=== PATIENT | male | born 1940 | race Caucasian/White ===

== ENCOUNTER 2018-08-29 11:04 | Emergency (ER) | payer MEDICARE ==
--- NOTE | 2018-08-29 11:39 | ED ---
URI HPI - General Chief Complaint: Upper Respiratory Infection Stated Complaint: COLD SYMPTOMS Time Seen by Provider: 08/29/18 11:20 Source: patient, RN notes reviewed Mode of arrival: ambulatory Limitations: no limitations - History of Present Illness Initial Comments: This is a 78-year-old male with a history of COPD who states he's had issues with sinus congestion since this past [place]. He states his came home from school and was ill initially likely secondary to soft tissue defect up at school from kids he states she's been having sinus congestion and rhinorrhea cough he states he sinus congestion and drainage is usually yellow the weight phlegm he does cough up this is usually white sometimes dark brown after drinking coffee. He's had some low-grade fevers he states earlier this week until this morning this is sinus pressure and discomfort especially around his eyes. No neck pain no back pain he states his breathing appears be within his usual normal limits. No chest pain no peripheral edema no other modifying factors at this time he has tried nasal washes he's tried Mucinex he's had 2 bottles of cough syrup he states. MD Complaint: fever, cough, rhinorrhea, nasal congestion, sinus pain - Related Data Home Medications Medication Instructions Recorded Confirmed Albuterol Inhaler [Ventolin Hfa 1 - 2 puff INHALATION Q6HR PRN 12/11/15 12/13/15 Inhaler] Aspirin [Adult Low Dose Aspirin EC] 81 mg PO HS 12/11/15 12/13/15 Calcium Carbonate/Vitamin D3 1 each PO 1200 12/11/15 12/13/15 [Calcium 600 + Vit D 400 Tablet] Fluticasone/Salmeterol [Advair 1 inhalation PO BID 12/11/15 12/13/15 500-50 Diskus] Levothyroxine Sodium [Synthroid] 50 mcg PO DAILY 12/11/15 12/13/15 Losartan Potassium [Cozaar] 100 mg PO QAM 12/11/15 12/13/15 Magnesium Oxide [Mag-Ox] 400 mg PO QAM 12/11/15 12/13/15 Metoprolol Succinate (ER) [Toprol 100 mg PO QAM 12/11/15 12/13/15 Xl] Multivitamin [Men's Multi-Vitamin] 1 each PO QAM 12/11/15 12/13/15 Niacinamide [Niacin] 500 mg PO BID 12/11/15 12/13/15 Omeprazole 20 mg PO BID 12/11/15 12/13/15 Simvastatin [Zocor] 10 mg PO HS 12/11/15 12/13/15 Tiotropium 18 Mcg/Puff [Spiriva] 1 cap INHALATION DAILY 12/11/15 12/13/15 metFORMIN HCL [Glucophage] 500 mg PO BID 12/11/15 12/13/15 Previous Rx's Medication Instructions Recorded Amoxicillin/Potassium Clav 1 tab PO Q12HR #20 tab 08/29/18 [Augmentin 875-125 Tablet] Allergies Allergy/AdvReac Type Severity Reaction Status Date / Time No Known Allergies Allergy Verified 08/29/18 11:11 Review of Systems ROS Statement: Those systems with pertinent positive or pertinent negative responses have been documented in the HPI. ROS Other: All systems not noted in ROS Statement are negative. 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 History of Any Multi-Drug Resistant Organisms: None Reported Past Surgical History: Heart Catheterization, Heart Catheterization With Stent Additional Past Surgical History / Comment(s): 1/2 thyroid removed, stent card in wallet, left eye cataract removal & lens implanted, lasix on right eye Past Anesthesia/Blood Transfusion Reactions: No Reported Reaction Date of Last Stent Placement:: 2003 () Past Psychological History: No Psychological Hx Reported Smoking Status: Former smoker Past Alcohol Use History: Occasional Past Drug Use History: None Reported - Past Family History Mother Family Medical History: Cancer Additional Family Medical History / Comment(s): sx: appendix; CA: breast ( from) Father Family Medical History: COPD, CVA/TIA Additional Family Medical History / Comment(s): CVA in 1978 ( from), sinus sx General Exam - General Exam Comments Initial Comments: This is a well-developed well-nourished awake alert oriented times 3 male Limitations: no limitations General appearance: alert Head exam: Present: atraumatic, normocephalic, normal inspection Eye exam: Present: normal appearance, PERRL, EOMI. Absent: scleral icterus, conjunctival injection, periorbital swelling ENT exam: Present: TM's normal bilaterally, other ([place] nasal mucosa clear drainage is seen) Neck exam: Present: normal inspection, full ROM, other (No stridor JVD or bruits ). Absent: tenderness, meningismus, lymphadenopathy Respiratory exam: Present: decreased breath sounds (Just very slightly diminished on the right compared to the left). Absent: respiratory distress, wheezes, rales, rhonchi, stridor Cardiovascular Exam: Present: regular rate, normal rhythm, normal heart sounds. Absent: systolic murmur, diastolic murmur, rubs, gallop, clicks Extremities exam: Present: normal inspection, full ROM, normal capillary refill. Absent: tenderness, pedal edema, joint swelling, calf tenderness Back exam: Present: normal inspection Neurological exam: Present: alert, oriented X3, CN II-XII intact Psychiatric exam: Present: normal affect, normal mood Skin exam: Present: warm, dry, intact, normal color. Absent: rash Course Vital Signs 08/29/18 11:07 Temperature 97.5 F L Pulse Rate 76 Respiratory 20 Rate Blood Pressure 145/80 O2 Sat by Pulse 97 Oximetry Medical Decision Making - Medical Decision Making I did discuss findings the patient. The presentation consistent with chronic sinusitis that appears be getting worse she will be placed on antibiotics. He states he has been on Augmentin in the past that has worked well he will again it. He'll consult continue with his other medication. - Lab Data Lab Results 08/29/18 Range/Units 11:34 Influenza Type A RNA Not Detected (Not Detectd) Influenza Type B (PCR) Not Detected (Not Detectd) - Radiology Data Radiology results: report reviewed (I did review the imaging and report no acute findings the studies consistent with COPD), image reviewed Disposition Clinical Impression: Rhinosinusitis Disposition: HOME SELF-CARE Condition: Good Instructions: Rhinosinusitis (ED) Prescriptions: Amoxicillin/Potassium Clav [Augmentin 875-125 Tablet] 1 tab PO Q12HR #20 tab Is patient prescribed a controlled substance at d/c from ED?: No Referrals: Pedro Pablo Brunner MD [Primary Care Provider] - 1-2 days
--- NOTE | 2018-08-29 11:48 | XR ---
EXAMINATION TYPE: XR chest 2V DATE OF EXAM: 08/29/2018 HISTORY: cough. REFERENCE: NONE. FINDINGS: The lungs are overinflated. There is some scarring or atelectasis at both lung bases. The l ungs are otherwise clear. Pleural space are clear. The heart is not enlarged. IMPRESSION: 1. COPD. 2. SCARRING VERSUS ATELECTASIS, BOTH LUNG BASES.
[2018-08-29 12:29] VITALS: BP 140/90; PULSE 79; RESP 18; TEMP 97.8
== END 2018-08-29 12:29 | disposition home or self-care (01) ==
LOC: EC 11:04
DX: J32.9 Chronic sinusitis, unspecified (principal); R50.9 Fever, unspecified; I10 Essential (primary) hypertension; J44.9 Chronic obstructive pulmonary disease, unspecified; I25.10 Atherosclerotic heart disease of native coronary artery without angina pectoris; E07.9 Disorder of thyroid, unspecified; H91.90 Unspecified hearing loss, unspecified ear; K22.70 Barrett's esophagus without dysplasia; Z87.891 Personal history of nicotine dependence; Z79.51 Long term (current) use of inhaled steroids; Z79.82 Long term (current) use of aspirin; Z79.84 Long term (current) use of oral hypoglycemic drugs; Z79.899 Other long term (current) drug therapy; Z95.5 Presence of coronary angioplasty implant and graft
CPT/HCPCS: 71046; 87502; 99283

== ENCOUNTER 2019-12-04 14:08 | Observation (INO) | payer MEDICARE ==
[2019-12-04] MEDS ORDERED: SODIUM CHLORIDE 0.9% 500 ML 500 ML IV STA (14:32)
[2019-12-04 14:48] LABS: Basophils % (A) 0 %; Eosinophils # (A) 0.2 k/uL (0-0.7); Eosinophils % (A) 2 %; HCT 42.4 % (39.0-53.0); HGB 14.3 gm/dL (13.0-17.5); Lymphocytes # (A) 0.8 k/uL (1.0-4.8); Lymphocytes % (A) 9 %; MCH 32.2 pg (25.0-35.0); MCHC 33.8 g/dL (31.0-37.0); MCV 95.4 fL (80.0-100.0); Mean Platelet Volume 7.1; Monocytes # (A) 0.9 k/uL (0-1.0); Monocytes % (A) 10 %; Neutrophils # (A) 6.8 k/uL (1.3-7.7); Neutrophils % (A) 76 %; Platelet Count 199 k/uL (150-450); RBC 4.44 m/uL (4.30-5.90); RDW 12.8 % (11.5-15.5); WBC 8.9 k/uL (3.8-10.6)
[2019-12-04 14:57] LABS: INR 0.9 (<1.2); Partial Thromboplastin Time 25.1 sec (22.0-30.0); Prothrombin Time 9.8 sec (9.0-12.0)
[2019-12-04 15:05] LABS: Albumin 4.4 g/dL (3.5-5.0); Total Bilirubin 1.4 mg/dL (0.2-1.3); Total Protein 7.4 g/dL (6.3-8.2)
--- NOTE | 2019-12-04 15:08 | XR ---
EXAMINATION TYPE: XR chest 1V portable DATE OF EXAM: 12/04/2019 COMPARISON: 08/29/2018 HISTORY: Cough TECHNIQUE: FINDINGS: Heart is normal. There is some atelectasis at the lung bases. There are no hilar masses. [place] thorax is intact. IMPRESSION: There is some atelectasis at the lung bases with decreased inspiration. This is worse akilah n last exam.
--- NOTE | 2019-12-04 15:20 | ED ---
General Adult HPI - General Source: patient Mode of arrival: ambulatory Limitations: no limitations <Felicia Carlson - Last Filed: 12/04/19 16:24> <Kellie Ortega - Last Filed: 12/06/19 23:52> - General Chief complaint: Shortness of Breath Stated complaint: SOB Time Seen by Provider: 12/04/19 14:17 - History of Present Illness Initial comments: Patient is a 79-year-old male, with history of COPD, presenting to emergency Department with complaints of a cough, mild shortness of breath for the past 4-5 days. Patient states his symptoms started about a week ago with a mild cough, congestion. Patient denies having fever, chills. Patient states over the past week his feels like his symptoms have been increasing and is having some shortness of breath with exertion. He complains of just general fatigue. P atient did admit he had a little bit of chest discomfort when he was coughing and intermittently. Patient denies previous history of heart disease. He does not remember his last stress test. He denies history of PE. He denies any abdominal complaints such as nausea, vomiting, diarrhea, abdominal pain. He denies lightheadedness. He has no other complaints. Upon arrival to the ER, his vital signs are stable. (Felicia Carlson) - Related Data Home Medications Medication Instructions Recorded Confirmed Albuterol Inhaler (Bulk) [Ventolin 2 puff INHALATION RT-QID PRN 12/11/15 12/04/19 Hfa Inhaler] Aspirin [Adult Low Dose Aspirin EC] 81 mg PO Q48H 12/11/15 12/04/19 Calcium Carbonate/Vitamin D3 1 tab PO W/LUNCH 12/11/15 12/04/19 [Calcium 600 + Vit D 400 Tablet] Fluticasone/Salmeterol [Advair 1 puff INHALATION RT-BID 12/11/15 12/04/19 500-50 Diskus] Levothyroxine Sodium [Synthroid] 50 mcg PO DAILY 12/11/15 12/04/19 Losartan Potassium [Cozaar] 100 mg PO DAILY 12/11/15 12/04/19 Metoprolol Succinate (ER) [Toprol 100 mg PO DAILY 12/11/15 12/04/19 Xl] Multivitamin [Men's Multi-Vitamin] 1 tab PO W/LUNCH 12/11/15 12/04/19 Tiotropium 18 Mcg/Puff [Spiriva] 1 cap INHALATION RT-DAILY 12/11/15 12/04/19 metFORMIN HCL [Glucophage] 500 mg PO PC-SUPPER 12/11/15 12/04/19 Cyanocobalamin (Vitamin B-12) 1,000 mcg PO W/LUNCH 12/04/19 12/04/19 [Vitamin B-12] Ipratropium [place] 0.06%Nasal 1 spray EA NOSTRIL QID PRN 12/04/19 12/04/19 [Atrovent Nasal 0.06%] Simvastatin [Zocor] 10 mg PO PC-SUPPER 12/04/19 12/04/19 Azithromycin [Zithromax] 500 mg PO DAILY 12/05/19 12/05/19 Allergies Allergy/AdvReac Type Severity Reaction Status Date / Time No Known Allergies Allergy Verified 12/04/19 14:14 Review of Systems ROS Other: All systems not noted in ROS Statement are negative. <Felicia Carlson - Last Filed: 12/04/19 16:24> ROS Other: All systems not noted in ROS Statement are negative. <Kellie Ortega - Last Filed: 12/06/19 23:52> ROS Statement: Those systems with pertinent positive or pertinent negative responses have been documented in the HPI. 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 History of Any Multi-Drug Resistant Organisms: None Reported Past Surgical History: Heart Catheterization, Heart Catheterization With Stent Additional Past Surgical History / Comment(s): 1/2 thyroid removed, stent card in wallet, left eye cataract removal & lens implanted, lasix on right eye Past Anesthesia/Blood Transfusion Reactions: No Reported Reaction Date of Last Stent Placement:: 2003 () Past Psychological History: No Psychological Hx Reported Smoking Status: Former smoker Past Alcohol Use History: Daily Past Drug Use History: None Reported - Past Family History Mother Family Medical History: Cancer Additional Family Medical History / Comment(s): sx: appendix; CA: breast ( from) Father Family Medical History: COPD, CVA/TIA Additional Family Medical History / Comment(s): CVA in 1978 ( from), sinus sx <Felicia Carlson - Last Filed: 12/04/19 16:24> General Exam Limitations: no limitations <Felicia Carlson - Last Filed: 12/04/19 16:24> - General Exam Comments Initial Comments: GENERAL: Well-appearing, well-nourished and in no acute distress. HEAD: Atraumatic, normocephalic. EYES: Pupils equal round and reactive to light, extraocular movements intact, sclera anicteric, conjunctiva are normal. ENT: TMs normal, nares patent, oropharynx clear without exudates. Moist mucous membranes. NECK: Normal range of motion, supple without lymphadenopathy or JVD. LUNGS: Breath sounds clear to auscultation bilaterally and equal. No wheezes rales or rhonchi. HEART: Regular rate and rhythm without murmurs, rubs or gallops. ABDOMEN: Soft, nontender, normoactive bowel sounds. No guarding, no rebound. No masses appreciated. : Deferred EXTREMITIES: Normal range of motion, no pitting or edema. No clubbing or cyanosis. NEUROLOGICAL: Normal speech, normal gait. PSYCH: Normal mood, normal affect. SKIN: Warm, Dry, normal turgor, no rashes or lesions noted. (Felicia Carlson) Course Vital Signs 12/04/19 12/04/19 12/04/19 14:11 14:44 17:02 Temperature 98.6 F 98.5 F Pulse Rate 89 Pulse Rate [ 84 Pulse Oximetery ] Respiratory 18 16 18 Rate Blood Pressure 151/89 Blood Pressure 180/84 [Left Arm] O2 Sat by Pulse 97 96 Oximetry 12/04/19 17:04 Temperature Pulse Rate 83 Pulse Rate [ Pulse Oximetery ] Respiratory 16 Rate Blood Pressure 139/86 Blood Pressure [Left Arm] O2 Sat by Pulse 100 Oximetry EKG Findings - EKG Comments: EKG Findings:: Ventricular rate 76, WV interval 178, QTC 429. Normal sinus rhythm. Nonspecific ST abnormality, no signs of acute ischemia. <Felicia Carlson - Last Filed: 12/04/19 16:24> Medical Decision Making - Lab Data Result diagrams: 12/04/19 14:35 12/04/19 14:35 <Felicia Carlson - Last Filed: 12/04/19 16:24> - Lab Data Result diagrams: 12/05/19 01:41 12/05/19 01:41 <Kellie Ortega - Last Filed: 12/06/19 23:52> - Medical Decision Making Patient 71-year-old male presenting with cough, short of breath 5 days. Inte rmittent chest pain. Vital signs are stable upon arrival. Exam is unremarkable. EKG shows no signs of acute ischemia. Chest x-ray shows some mild atelectasis at the lung bases, no other abnormality. Lab work shows normal white count. Kidney function is slightly elevated but at baseline. Troponin is 0.025. Given patient's history of symptoms and slight increase in troponin, patient will be admitted for cardiac rule out. I did order a CTA to rule out PE which is pending at this time. I spoke with Dr. Prince who accepts the patient. Patient is agreement with this plan of care. Case discussed with Dr. Ortega. (Felicia Carlson) I was available for consultation in the emergency department. The history and physical exam were done by the midlevel provider. I was consulted for this patients care. I reviewed the case with the midlevel provider and based on their presentation of the patient, I agree with the assessment, medical decision making and plan of care as documented. Chart was dictated using [employer] dictation software. Attempts were made to benjamin ect any dictation errors however some typographical errors may persist. Patient was seen during a national state of emergency due to the Covid-19 pandemic. (Kellie Ortega) - Lab Data Lab Results 12/04/19 12/04/19 12/04/19 Range/Units 14:35 14:35 14:35 WBC 8.9 (3.8-10.6) k/uL RBC 4.44 (4.30-5.90) m/uL Hgb 14.3 (13.0-17.5) gm/dL Hct 42.4 (39.0-53.0) % MCV 95.4 (80.0-100.0) fL MCH 32.2 (25.0-35.0) pg MCHC 33.8 (31.0-37.0) g/dL RDW 12.8 (11.5-15.5) % Plt Count 199 (150-450) k/uL Neutrophils % 76 % Lymphocytes % 9 % Monocytes % 10 % Eosinophils % 2 % Basophils % 0 % Neutrophils # 6.8 (1.3-7.7) k/uL Lymphocytes # 0.8 L (1.0-4.8) k/uL Monocytes # 0.9 (0-1.0) k/uL Eosinophils # 0.2 (0-0.7) k/uL Basophils # 0.0 (0-0.2) k/uL PT 9.8 (9.0-12.0) sec INR 0.9 (<1.2) APTT 25.1 (22.0-30.0) sec Sodium 135 L (137-145) mmol/L Potassium 5.0 (3.5-5.1) mmol/L Chloride 100 (98-107) mmol/L Carbon Dioxide 25 (22-30) mmol/L Anion Gap 10 mmol/L BUN 32 H (9-20) mg/dL Creatinine 1.39 H (0.66-1.25) mg/dL Est GFR (CKD-EPI)AfAm 56 (>60 ml/min/1.73 sqM) Est GFR (CKD-EPI)NonAf 48 (>60 ml/min/1.73 sqM) Glucose 118 H (74-99) mg/dL Calcium 10.0 (8.4-10.2) mg/dL Magnesium 2.0 (1.6-2.3) mg/dL Total Bilirubin 1.4 H (0.2-1.3) mg/dL AST 46 (17-59) U/L ALT 61 H (4-49) U/L Alkaline Phosphatase 50 (38-126) U/L Troponin I (0.000-0.034) ng/mL Total Protein 7.4 (6.3-8.2) g/dL Albumin 4.4 (3.5-5.0) g/dL 12/04/19 Range/Units 14:35 WBC (3.8-10.6) k/uL RBC (4.30-5.90) m/uL Hgb (13.0-17.5) gm/dL Hct (39.0-53.0) % MCV (80.0-100.0) fL MCH (25.0-35.0) pg MCHC (31.0-37.0) g/dL RDW (11.5-15.5) % Plt Count (150-450) k/uL Neutrophils % % Lymphocytes % % Monocytes % % Eosinophils % % Basophils % % Neutrophils # (1.3-7.7) k/uL Lymphocytes # (1.0-4.8) k/uL Monocytes # (0-1.0) k/uL Eosinophils # (0-0.7) k/uL Basophils # (0-0.2) k/uL PT (9.0-12.0) sec INR (<1.2) APTT (22.0-30.0) sec Sodium (137-145) mmol/L Potassium (3.5-5.1) mmol/L Chloride (98-107) mmol/L Carbon Dioxide (22-30) mmol/L Anion Gap mmol/L BUN (9-20) mg/dL Creatinine (0.66-1.25) mg/dL Est GFR (CKD-EPI)AfAm (>60 ml/min/1.73 sqM) Est GFR (CKD-EPI)NonAf (>60 ml/min/1.73 sqM) Glucose (74-99) mg/dL Calcium (8.4-10.2) mg/dL Magnesium (1.6-2.3) mg/dL Total Bilirubin (0.2-1.3) mg/dL AST (17-59) U/L ALT (4-49) U/L Alkaline Phosphatase (38-126) U/L Troponin I 0.025 (0.000-0.034) ng/mL Total Protein (6.3-8.2) g/dL Albumin (3.5-5.0) g/dL Disposition Is patient prescribed a controlled substance at d/c from ED?: No Decision Date: 12/04/19 Decision Time: 16:25 <Felicia Carlson - Last Filed: 12/04/19 16:24> <Kellie Ortega - Last Filed: 12/06/19 23:52> Clinical Impression: Dyspnea, Chest pain Disposition: ADMITTED IP TO THIS [facility] Condition: Stable
[2019-12-04] MEDS ORDERED: NITROGLYCERIN SL TABS 0.4 MG TAB SUBLINGUAL PRN (16:22)
--- NOTE | 2019-12-04 16:43 | CT ---
EXAMINATION TYPE: CT chest angio for PE DATE OF EXAM: 12/04/2019 COMPARISON: None HISTORY: SOB CT DLP: 553.8 mGycm Automated exposure control for dose reduction was used. CONTRAST: Performed with IV Contrast, patient injected with 80cc mL of Isovue 370. There are 3-D post processed images. There is diffuse pulmonary emphysema. There is airspace consolidation and atelectasis in the right lo wer lobe. There is minimal pleural thickening at the right posterior lung base. There is no mediastinal adenopathy. There are no hilar masses. Thoracic aorta is atheromatous. There is normal contrast opacification of the pulmonary arteries. There are no filling defects. There is no aortic aneurysm or dissection. There is mild linear density at the right lung base. There is degener ative spurring in the thoracic spine. IMPRESSION: No evidence of pulmonary embolism. Right lower lobe pneumonia and atelectasis. Mild infiltrate and atelectasis left lung base. Moderately severe pulmonary emphysema.
--- NOTE | 2019-12-04 17:17 | P.HPIM ---
History of Present Illness H&P Date: 12/04/19 Patient is a 79-year-old male with a history of COPD, who states for the last 5 days he's had a cough, patient's denies any productive sputum. He states on Friday night he had chills but has not had a fever in the last 5 days. He denies any sick contacts he is home with his and states that she goes shopping but he is attending addendum other contact the last 3 weeks. His is currently not ill patient states he has had some intermittent chest pain for which she's taken antacids he denies any nausea or vomiting he states that his blood pressure was low on his heart rate was high however he did not clearly remember the numbers. Today patient came to the emergency room for evaluation in emergency room was afebrile with temperature 98.6, respiratory rate of 18, pulse of 89, blood pressure 151/89 he was 97% on room air. Patient had a chest x-ray that reported some atelectasis at the lung bases with decreased inspiration. CTA was done that showed right lower lobe atelectasis and mild infiltrate and atelectasis of the left lung base. Patient also describes body aches for the last 5 days. Patient was determined to hospitalization for further workup and management. 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 History of Any Multi-Drug Resistant Organisms: None Reported Past Surgical History: Heart Catheterization, Heart Catheterization With Stent Additional Past Surgical History / Comment(s): 1/2 thyroid removed, stent card in wallet, left eye cataract removal & lens implanted, lasix on right eye Past Anesthesia/Blood Transfusion Reactions: No Reported Reaction Date of Last Stent Placement:: 2003 (approx) Past Psychological History: No Psychological Hx Reported Smoking Status: Former smoker Past Alcohol Use History: Daily Past Drug Use History: None Reported - Past Family History Mother Family Medical History: Cancer Additional Family Medical History / Comment(s): sx: appendix; CA: breast ( from) Father Family Medical History: COPD, CVA/TIA Additional Family Medical History / Comment(s): CVA in 1978 ( from), sinus sx Medications and Allergies Home Medications Medication Instructions Recorded Confirmed Type Albuterol Inhaler (Bulk) [Ventolin 2 puff INHALATION RT-QID PRN 12/11/15 12/04/19 History Hfa Inhaler] Aspirin [Adult Low Dose Aspirin EC] 81 mg PO Q48H 12/11/15 12/04/19 History Calcium Carbonate/Vitamin D3 1 tab PO W/LUNCH 12/11/15 12/04/19 History [Calcium 600 + Vit D 400 Tablet] Fluticasone/Salmeterol [Advair 1 puff INHALATION RT-BID 12/11/15 12/04/19 History 500-50 Diskus] Levothyroxine Sodium [Synthroid] 50 mcg PO DAILY 12/11/15 12/04/19 History Losartan Potassium [Cozaar] 100 mg PO DAILY 12/11/15 12/04/19 History Metoprolol Succinate (ER) [Toprol 100 mg PO DAILY 12/11/15 12/04/19 History Xl] Multivitamin [Men's Multi-Vitamin] 1 tab PO W/LUNCH 12/11/15 12/04/19 History Tiotropium 18 Mcg/Puff [Spiriva] 1 cap INHALATION RT-DAILY 12/11/15 12/04/19 History metFORMIN HCL [Glucophage] 500 mg PO PC-SUPPER 12/11/15 12/04/19 History Cyanocobalamin (Vitamin B-12) 1,000 mcg PO W/LUNCH 12/04/19 12/04/19 History [Vitamin B-12] Ipratropium [place] 0.06%Nasal 1 spray EA NOSTRIL QID PRN 12/04/19 12/04/19 History [Atrovent Nasal 0.06%] Simvastatin [Zocor] 10 mg PO PC-SUPPER 12/04/19 12/04/19 History Allergies Allergy/AdvReac Type Severity Reaction Status Date / Time No Known Allergies Allergy Verified 12/04/19 14:14 Physical Exam Vitals: Vital Signs Temp Pulse Resp BP Pulse Ox 12/04/19 14:44 16 12/04/19 14:11 98.6 F 89 18 151/89 97 Intake and Output 12/04/19 12/04/19 12/04/19 06:59 14:59 22:59 Other: Weight 94.801 kg - Constitutional General appearance: no acute distress - EENT Eyes: PERRLA - Respiratory Respiratory: bilateral: diminished - Gastrointestinal General gastrointestinal: normal bowel sounds - Integumentary Integumentary: normal - Neurologic Neurologic: CNII-XII intact - Musculoskeletal Musculoskeletal: strength equal bilaterally - Psychiatric Psychiatric: A&O x's 3, appropriate affect, intact judgment & insight Results CBC & Chem 7: 12/04/19 14:35 12/04/19 14:35 Labs: Abnormal Lab Results - Last 24 Hours (Table) 12/04/19 12/04/19 Range/Units 14:35 14:35 Lymphocytes # 0.8 L (1.0-4.8) k/uL Sodium 135 L (137-145) mmol/L BUN 32 H (9-20) mg/dL Creatinine 1.39 H (0.66-1.25) mg/dL Glucose 118 H (74-99) mg/dL Total Bilirubin 1.4 H (0.2-1.3) mg/dL ALT 61 H (4-49) U/L Abdominal x-ray: report reviewed CT scan - chest: report reviewed Assessment and Plan (1) Pneumonia Narrative/Plan: Patient has pneumonia present on CT of the chest. We'll treat with Zithromax and Rocephin, who is currently not hypoxic. Patient describing chills cough and body aches we'll check: Covid-10, inflammatory markers Current Visit: Yes Status: Acute Code(s): J18.9 - PNEUMONIA, UNSPECIFIED ORGANISM SNOMED Code(s): 974730417 (2) Chest pain Narrative/Plan: We'll trend enzymes, cardiology consult Current Visit: Yes Status: Acute Code(s): R07.9 - CHEST PAIN, UNSPECIFIED SNOMED Code(s): 70459209 (3) COPD (chronic obstructive pulmonary disease) Narrative/Plan: Patient does have severe COPD but does not appear to have an exacerbation is no wheezing we'll continue home regimen Current Visit: Yes Status: Acute Code(s): J44.9 - CHRONIC OBSTRUCTIVE PULMONARY DISEASE, UNSPECIFIED SNOMED Code(s): 86539022 (4) Diabetes mellitus Narrative/Plan: Continue outpatient regiment and sliding scale coverage Current Visit: Yes Status: Acute Code(s): E11.9 - TYPE 2 DIABETES MELLITUS WITHOUT COMPLICATIONS SNOMED Code(s): 86270259 Plan: Patient is a full code, DVT prophylaxis with low molecular rate heparin, patient is placed in observation and reevaluate in 24 hours depending on further diagnostic workup
[2019-12-04] MEDS: INSULIN ASPART (NovoLOG) 100 UNIT/ML VIAL SQ SCH ×2 (18:10→21:24)
[2019-12-04] MEDS: AZITHROMYCIN 500 MG in SODIUM CHLORIDE 0.9% 250 ML IVPB SCH (18:49)
[2019-12-04 20:26] LABS: Glucose,Whole Blood 115 mg/dL (75-99)
[2019-12-04] MEDS ORDERED: ALBUTEROL NEBULIZED 2.5 MG/3 ML INHALATION PRN (20:49)
[2019-12-04] MEDS ORDERED: ASPIRIN 81 MG PO SCH (21:00)
[2019-12-04 21:27] LABS: C Reactive Protein 58.7 mg/L (<10.0)
[2019-12-04] MEDS: SYMBICORT 160-4.5 MCG INHALER INHALATION SCH (21:53)
[2019-12-04] MEDS ORDERED: IPRATROPIUM BROMIDE 0.06% NASAL SPRAY (15 ML) EA NOSTRIL PRN (22:00)
[2019-12-05 03:11] LABS: Cholesterol 117 mg/dL (<200); HDL Cholesterol 46 mg/dL (40-60); LDL Cholesterol,Calculated 49 mg/dL (0-99); Triglycerides 109 mg/dL (<150)
[2019-12-05] MEDS ORDERED: LEVOTHYROXINE 50 MCG TAB PO SCH (06:30)
[2019-12-05 06:36] LABS: Glucose,Whole Blood 120 mg/dL (75-99)
[2019-12-05] MEDS: INSULIN ASPART (NovoLOG) 100 UNIT/ML VIAL SQ SCH ×2 (06:38→13:09)
[2019-12-05 06:51] LABS: Basophils % (A) 1 %; Eosinophils # (A) 0.2 k/uL (0-0.7); Eosinophils % (A) 3 %; HCT 42.2 % (39.0-53.0); HGB 13.8 gm/dL (13.0-17.5); Lymphocytes % (A) 13 %; MCH 31.7 pg (25.0-35.0); MCHC 32.8 g/dL (31.0-37.0); MCV 96.8 fL (80.0-100.0); Mean Platelet Volume 8.2; Monocytes # (A) 0.8 k/uL (0-1.0); Monocytes % (A) 10 %; Neutrophils # (A) 5.8 k/uL (1.3-7.7); Neutrophils % (A) 73 %; Platelet Count 210 k/uL (150-450); RBC 4.36 m/uL (4.30-5.90); RDW 12.8 % (11.5-15.5); WBC 7.9 k/uL (3.8-10.6)
[2019-12-05] MEDS ORDERED: ALBUTEROL HFA INHALER INHALATION PRN (07:03)
[2019-12-05 07:08] LABS: Calcium 9.6 mg/dL (8.4-10.2); Potassium 4.8 mmol/L (3.5-5.1)
[2019-12-05] MEDS ORDERED: TIOTROPIUM 18 MCG/PUFF INHALER INHALATION SCH (08:00)
[2019-12-05] MEDS ORDERED: IPRATROPIUM 0.5 MG/2.5 ML NEBU INHALATION SCH (08:00)
[2019-12-05] MEDS: SYMBICORT 160-4.5 MCG INHALER INHALATION SCH (08:34)
[2019-12-05] MEDS ORDERED: ASPIRIN 325 MG TAB PO SCH (09:00)
[2019-12-05] MEDS ORDERED: ENOXAPARIN 30 MG/0.3 ML SYRINGE SQ SCH (09:00)
[2019-12-05] MEDS ORDERED: METOPROLOL SUCCINATE (ER) 100 MG TAB.ER.24H PO SCH (09:00)
[2019-12-05] MEDS: AZITHROMYCIN 500 MG in SODIUM CHLORIDE 0.9% 250 ML IVPB SCH (09:08)
--- NOTE | 2019-12-05 09:35 | P.DS ---
Providers Date of admission: 12/04/19 16:39 Expected date of discharge: 12/05/19 Attending physician: Marguerite Prince MD Consults: 12/04/19 16:22 Consult Physician Urgent Consulting Provider: Mitra Anthony Consult Reason/Comments: chest pain, dyspnea Do you want consulting provider notified?: Yes Primary care physician: Pedro Pablo Brunner - Discharge Diagnosis(es) (1) Pneumonia Patient was seen this morning, he states he feels better, he has no hypoxia, as well as sounds slightly diminished at the bases but otherwise clear seeing that he has continued to improve will treat with azithromycin 500 mg daily 5 days and patient will follow-up with his family physician need outpatient follow-up tests chest x-ray didn't show pneumonia has cleared. Current Visit: Yes Status: Acute (2) Chest pain Patient was seen by cardiology, his troponins have remained negative, patient was likely secondary to his infection at this time no further cardiac workup is planned in hospital Current Visit: Yes Status: Acute (3) COPD (chronic obstructive pulmonary disease) Continue outpatient regimen during this hospitalization patient was not an acute exacerbation Current Visit: Yes Status: Acute (4) Diabetes mellitus Continue outpatient regiment resume metformin per protocol 48 hours after contrast Current Visit: Yes Status: Acute Hospital Course: Patient is seen this morning was ambulating around his room without any chest pain shortness of breath or hypoxia to be discharged with outpatient follow-up details plans as stated above Patient Condition at Discharge: Stable Plan - Discharge Summary Discharge Rx Participant: No New Discharge Prescriptions: No Action Aspirin [Adult Low Dose Aspirin EC] 81 mg PO Q48H Multivitamin [Men's Multi-Vitamin] 1 tab PO W/LUNCH Calcium Carbonate/Vitamin D3 [Calcium 600 + Vit D 400 Tablet] 1 tab PO W/LUNCH Metoprolol Succinate (ER) [Toprol Xl] 100 mg PO DAILY Losartan Potassium [Cozaar] 100 mg PO DAILY Levothyroxine Sodium [Synthroid] 50 mcg PO DAILY metFORMIN HCL [Glucophage] 500 mg PO PC-SUPPER Fluticasone/Salmeterol [Advair 500-50 Diskus] 1 puff INHALATION RT-BID Tiotropium 18 Mcg/Puff [Spiriva] 1 cap INHALATION RT-DAILY Albuterol Inhaler (Bulk) [Ventolin Hfa Inhaler] 2 puff INHALATION RT-QID PRN PRN Reason: Shortness Of Breath Cyanocobalamin (Vitamin B-12) [Vitamin B-12] 1,000 mcg PO W/LUNCH Ipratropium [place] 0.06%Nasal [Atrovent Nasal 0.06%] 1 spray EA NOSTRIL QID PRN PRN Reason: Allergy Symptoms Simvastatin [Zocor] 10 mg PO PC-SUPPER Azithromycin [Zithromax] 500 mg PO DAILY Discharge Medication List Albuterol Inhaler (Bulk) [Ventolin Hfa Inhaler] 2 puff INHALATION RT-QID PRN 12/11/15 [History] Aspirin [Adult Low Dose Aspirin EC] 81 mg PO Q48H 12/11/15 [History] Calcium Carbonate/Vitamin D3 [Calcium 600 + Vit D 400 Tablet] 1 tab PO W/LUNCH 12/11/15 [History] Fluticasone/Salmeterol [Advair 500-50 Diskus] 1 puff INHALATION RT-BID 12/11/15 [History] Levothyroxine Sodium [Synthroid] 50 mcg PO DAILY 12/11/15 [History] Losartan Potassium [Cozaar] 100 mg PO DAILY 12/11/15 [History] Metoprolol Succinate (ER) [Toprol Xl] 100 mg PO DAILY 12/11/15 [History] Multivitamin [Men's Multi-Vitamin] 1 tab PO W/LUNCH 12/11/15 [History] Tiotropium 18 Mcg/Puff [Spiriva] 1 cap INHALATION RT-DAILY 12/11/15 [History] metFORMIN HCL [Glucophage] 500 mg PO PC-SUPPER 12/11/15 [History] Cyanocobalamin (Vitamin B-12) [Vitamin B-12] 1,000 mcg PO W/LUNCH 12/04/19 [History] Ipratropium [place] 0.06%Nasal [Atrovent Nasal 0.06%] 1 spray EA NOSTRIL QID PRN 12/04/19 [History] Simvastatin [Zocor] 10 mg PO PC-SUPPER 12/04/19 [History] Azithromycin [Zithromax] 500 mg PO DAILY 12/05/19 [History] Follow up Appointment(s)/Referral(s): Pedro Pablo Brunner MD [Primary Care Provider] - 1-2 days Pending Studies Pending Results: Recommend follow-up chest imaging to ensure resolution of infiltrate
[2019-12-05 11:24] LABS: Glucose,Whole Blood 96 mg/dL (75-99)
[2019-12-05 11:31] VITALS: BP 126/65; PULSE 85; RESP 20; TEMP 97.8
--- NOTE | 2019-12-05 12:17 | P.CRDCN ---
History of Present Illness Consult date: 12/05/19 Consult reason: chest pain History of present illness: This is a 79-year-old male with past medical history of coronary artery disease with previous stent placement done 15-16 years ago at an outside facility, COPD, hypertension, hyperlipidemia, diabetes mellitus, hypothyroidism. Patient stated complains of a cough for 5 days and had chills on Friday which resolved. He also developed some chest pain which he thought was more related to congestion in his head. He denies any radiation of the chest pain. He denies any nausea or vomiting. Patient came into [facility] emergency center for evaluation found to be afebrile, heart rate 89, blood pressure 151/89 and pulse ox 97% on room air. Chest x-ray revealed atelectasis at the lung bases with decreased inspiration. CTA of the chest showed a right lower lobe atelectasis and mild infiltrate and atelectasis of the left lung base. Moderately severe asthma pulmonary emphysema. EKG was a sinus mechanism with no acute ST changes. Troponin 0.025, 0.023, 0.0-3. Triglycerides 109, cholesterol 117, LDL 49, HDL 46. CRP 40.7, COVID-19 testing negative. Patient was placed on the cardiac stepdown unit. He was started on azithromycin and Rocephin for pneumonia. He states that he does not have any chest pain. Shortness of breath and cough are improved. Patient is scheduled for discharge home today. Review Of Systems: At the time of my evaluation Constitutional: No fever, no chills, no night sweats. No weight change. No weakness, fatigue or lethargy. No daytime sleepiness. EENT: No headache. No blurred vision or double vision, no loss of vision. No loss of Hearing, no ringing in the ears, no dizziness. No nasal drainage or congestion. No epistaxis. No sore throat. Lungs: No shortness of breath, reports occasional cough, no sputum production. No wheezing. Cardiovascular: No chest pain, no lower extremity edema. No palpitations. No paroxysmal nocturnal dyspnea. No orthopnea. No lightheadedness or dizziness. No syncopal episodes. Abdominal: No abdominal pain. No nausea, vomiting. No diarrhea. No constipation. No bloody or tarry stools.. No loss of appetite. Genitourinary: No dysuria, increased frequency, urgency. No urinary retention. Musculoskeletal: No myalgias. No muscle weakness, no gait dysfunction, no frequent falls. No back pain. No neck pain. Integumentary: No wounds, no lesions. No rash or pruritus. No unusual bruising. No change in hair or nails. Neurologic: No aphasia. No facial droop. No change in mentation. No head injury. No headache. No paralysis. No paresthesia. Psychiatric: No depression. No anxiety. No mood swings. Endocrine: No abnormal blood sugars. No weight change. No excessive sweating or thirst. No cold intolerance. No weight change. Gen: This is a 79-year-old male. Patient is found ambulating in his room and appears to be comfortable and in no acute distress. VS: Afebrile, heart rate 85, blood pressure 126/65, pulse ox 95% on room air HEENT: Head is atraumatic, normocephalic. Pupils equal, round. Sclerae is anicteric. NECK: Supple. No JVD. No lymphadenopathy. No thyromegaly. LUNGS: Clear to auscultation. No wheezes or rhonchi. No intercostal ret ractions. HEART: Regular rate and rhythm. No murmur. ABDOMEN: Soft. Bowel sounds are present. No masses. No tenderness. EXTREMITIES: No pedal edema. No calf tenderness. NEUROLOGICAL: Patient is awake, alert and oriented x3. Cranial nerves 2 through 12 are grossly intact. Assessment: Pneumonia Chest pain, cannot exclude coronary artery disease No acute coronary syndrome COPD Diabetes mellitus type 2 Plan: Cannot exclude coronary artery disease. Patient advised to follow-up in the office once pneumonia is cleared, patient will undergo outpatient stress testing to further evaluate coronary arteries. Patient is cleared from cardiology for discharge. Thank you kindly for this consultation. Nurse practitioner note has been reviewed, I agree with documented findings and plan of care. Patient was seen and examined. 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 History of Any Multi-Drug Resistant Organisms: None Reported Past Surgical History: Heart Catheterization, Heart Catheterization With Stent Additional Past Surgical History / Comment(s): 1/2 thyroid removed, stent card in wallet, left eye cataract removal & lens implanted, lasix on right eye Past Anesthesia/Blood Transfusion Reactions: No Reported Reaction Date of Last Stent Placement:: 2003 (approx) Past Psychological History: No Psychological Hx Reported Smoking Status: Former smoker Past Alcohol Use History: Daily Past Drug Use History: None Reported - Past Family History Mother Family Medical History: Cancer Additional Family Medical History / Comment(s): sx: appendix; CA: breast ( from) Father Family Medical History: COPD, CVA/TIA Additional Family Medical History / Comment(s): CVA in 1978 ( from), sinus sx Medications and Allergies Home Medications Medication Instructions Recorded Confirmed Type Albuterol Inhaler (Bulk) [Ventolin 2 puff INHALATION RT-QID PRN 12/11/15 12/04/19 History Hfa Inhaler] Aspirin [Adult Low Dose Aspirin EC] 81 mg PO Q48H 12/11/15 12/04/19 History Calcium Carbonate/Vitamin D3 1 tab PO W/LUNCH 12/11/15 12/04/19 History [Calcium 600 + Vit D 400 Tablet] Fluticasone/Salmeterol [Advair 1 puff INHALATION RT-BID 12/11/15 12/04/19 History 500-50 Diskus] Levothyroxine Sodium [Synthroid] 50 mcg PO DAILY 12/11/15 12/04/19 History Losartan Potassium [Cozaar] 100 mg PO DAILY 12/11/15 12/04/19 History Metoprolol Succinate (ER) [Toprol 100 mg PO DAILY 12/11/15 12/04/19 History Xl] Multivitamin [Men's Multi-Vitamin] 1 tab PO W/LUNCH 12/11/15 12/04/19 History Tiotropium 18 Mcg/Puff [Spiriva] 1 cap INHALATION RT-DAILY 12/11/15 12/04/19 History metFORMIN HCL [Glucophage] 500 mg PO PC-SUPPER 12/11/15 12/04/19 History Cyanocobalamin (Vitamin B-12) 1,000 mcg PO W/LUNCH 12/04/19 12/04/19 History [Vitamin B-12] Ipratropium [place] 0.06%Nasal 1 spray EA NOSTRIL QID PRN 12/04/19 12/04/19 History [Atrovent Nasal 0.06%] Simvastatin [Zocor] 10 mg PO PC-SUPPER 12/04/19 12/04/19 History Azithromycin [Zithromax] 500 mg PO DAILY 12/05/19 12/05/19 History Allergies Allergy/AdvReac Type Severity Reaction Status Date / Time No Known Allergies Allergy Verified 12/04/19 14:14 Physical Exam Vitals: Vital Signs Temp Pulse Pulse Resp BP BP Pulse Ox 12/05/19 03:10 97.7 F 83 18 112/66 96 12/04/19 23:05 98.1 F 87 18 131/74 95 12/04/19 19:35 97.8 F 77 16 145/80 96 12/04/19 17:04 83 16 139/86 100 12/04/19 17:02 98.5 F 84 18 180/84 96 12/04/19 14:44 16 12/04/19 14:11 98.6 F 89 18 151/89 97 Intake and Output 12/04/19 12/05/19 12/05/19 22:59 06:59 14:59 Other: Weight 94.801 kg 95.2 kg Results 12/05/19 01:41 12/05/19 01:41 Cardiac Enzymes 12/04/19 12/04/19 12/04/19 Range/Units 14:35 14:35 20:41 AST 46 (17-59) U/L Troponin I 0.025 0.023 (0.000-0.034) ng/mL 12/05/19 Range/Units 01:41 AST (17-59) U/L Troponin I 0.023 (0.000-0.034) ng/mL Coagulation 12/04/19 Range/Units 14:35 PT 9.8 (9.0-12.0) sec APTT 25.1 (22.0-30.0) sec Lipids 12/05/19 Range/Units 01:41 Triglycerides 109 (<150) mg/dL Cholesterol 117 (<200) mg/dL HDL Cholesterol 46 (40-60) mg/dL CBC 12/04/19 12/05/19 Range/Units 14:35 01:41 WBC 8.9 7.9 (3.8-10.6) k/uL RBC 4.44 4.36 (4.30-5.90) m/uL Hgb 14.3 13.8 (13.0-17.5) gm/dL Hct 42.4 42.2 (39.0-53.0) % Plt Count 199 210 (150-450) k/uL Comprehensive Metabolic Panel 12/04/19 12/05/19 Range/Units 14:35 01:41 Sodium 135 L 137 (137-145) mmol/L Potassium 5.0 4.8 (3.5-5.1) mmol/L Chloride 100 105 (98-107) mmol/L Carbon Dioxide 25 20 L (22-30) mmol/L BUN 32 H 31 H (9-20) mg/dL Creatinine 1.39 H 1.49 H (0.66-1.25) mg/dL Glucose 118 H 140 H (74-99) mg/dL Calcium 10.0 9.6 (8.4-10.2) mg/dL AST 46 (17-59) U/L ALT 61 H (4-49) U/L Alkaline Phosphatase 50 (38-126) U/L Total Protein 7.4 (6.3-8.2) g/dL Albumin 4.4 (3.5-5.0) g/dL Current Medications Generic Name Dose Route Start Last Admin Trade Name Freq PRN Reason Stop Dose Admin Albuterol Sulfate 2 puff 12/05/19 07:03 Ventolin Hfa Inhaler INHALATION RT-QID PRN Shortness of breath Aspirin 325 mg 12/05/19 09:00 Aspirin PO DAILY [facility] Aspirin 81 mg 12/04/19 21:00 12/04/19 21:24 Aspirin PO Not Given Q48H [facility] Atorvastatin Calcium 10 mg 12/05/19 18:30 Lipitor PO PC-SUPPER [facility] Budesonide/Formoterol Fumarate 2 puff 12/04/19 20:49 12/05/19 08:34 Symbicort 160-4.5 Mcg Inhaler INHALATION 2 puff RT-BID WADE Administration Enoxaparin Sodium 30 mg 12/05/19 09:00 Lovenox SQ DAILY [facility] Ceftriaxone Sodium 1 gm/ 50 mls @ 100 mls/hr 12/04/19 17:30 12/04/19 18:48 Sodium Chloride IVPB 100 mls/hr DAILY WADE Administration Azithromycin 500 mg/ Sodium 250 mls @ 250 mls/hr 12/04/19 17:30 12/04/19 18:49 Chloride IVPB 250 mls/hr DAILY WADE Administration Insulin Aspart 0 unit 12/04/19 17:30 12/05/19 06:38 Novolog SQ Not Given ACHS [facility] Protocol Ipratropium [place] 1 spray 12/04/19 22:00 Atrovent Nasal EA NOSTRIL QID PRN Allergy Symptoms Levothyroxine Sodium 50 mcg 12/05/19 06:30 12/05/19 06:38 Synthroid PO 50 mcg DAILY@0630 WADE Administration Metoprolol Succinate 100 mg 12/05/19 09:00 Toprol Xl PO DAILY [facility] Nitroglycerin 0.4 mg 12/04/19 16:22 Nitrostat SUBLINGUAL Q5M PRN Chest Pain Tiotropium [place] 1 puff 12/05/19 08:00 12/05/19 08:34 Spiriva INHALATION 1 puff RT-DAILY [facility] Administration Intake and Output 12/04/19 12/05/19 12/05/19 22:59 06:59 14:59 Other: Weight 94.801 kg 95.2 kg 12/05/19 01:41 12/05/19 01:41
[2019-12-05] MEDS ORDERED: ATORVASTATIN 10 MG TAB PO SCH (18:30)
[2019-12-06] MEDS ORDERED: ENOXAPARIN 40 MG/0.4 ML SYRINGE SQ SCH (09:00)
[2019-12-06] MEDS ORDERED: AZITHROMYCIN 500 MG TAB PO SCH (09:00)
[2019-12-06 11:25] LABS: Ferritin 411.7 ng/mL (22.0-322.0)
== END 2019-12-05 14:37 | disposition home or self-care (01) ==
LOC: EC 14:08 → 3SCARD 16:39
PROVIDERS: ADMIT Internal Medicine; ATTEND Internal Medicine
DX: J18.1 Lobar pneumonia, unspecified organism (principal); J43.9 Emphysema, unspecified; J98.11 Atelectasis; I25.10 Atherosclerotic heart disease of native coronary artery without angina pectoris; I10 Essential (primary) hypertension; E11.9 Type 2 diabetes mellitus without complications; E89.0 Postprocedural hypothyroidism; K22.70 Barrett's esophagus without dysplasia; I71.9 Aortic aneurysm of unspecified site, without rupture; H91.90 Unspecified hearing loss, unspecified ear; Z03.818 Encounter for observation for suspected exposure to other biological agents ruled out; Z79.82 Long term (current) use of aspirin; Z79.890 Hormone replacement therapy; Z79.51 Long term (current) use of inhaled steroids; Z79.84 Long term (current) use of oral hypoglycemic drugs; Z79.899 Other long term (current) drug therapy; Z95.5 Presence of coronary angioplasty implant and graft; Z98.42 Cataract extraction status, left eye; Z96.1 Presence of intraocular lens; Z87.891 Personal history of nicotine dependence; Z82.5 Family history of asthma and other chronic lower respiratory diseases; Z80.3 Family history of malignant neoplasm of breast; Z83.79 Family history of other diseases of the digestive system; Z82.3 Family history of stroke
CPT/HCPCS: 96365; 96366 ×2; 96368 ×2; 93005 ×2; 99285; 36415; 94640 ×2; 80061; 80053; 80048; 82728; 83735; 84484 ×2; 85025 ×2; 85610; 85730; 86140; 87635; 71045; 71275; G0378 ×2; J0456 ×2; J0696 ×2; Q9967

== ENCOUNTER → 2020-06-21 | Day surgery (SDC) | payer MEDICARE ==
[2020-06-20 11:05] VITALS: BMI 28.5
[~2020-06-21] MED LIST: ALPRAZolam 0.25 MG TAB PO PRN; ALPRAZolam 0.5 MG TAB PO PRN; ASPIRIN 325 MG TAB PO STA; ASPIRIN 81 MG PO SCH; ATORVASTATIN 10 MG TAB PO SCH; ATORVASTATIN 80 MG TAB PO STA; HEPARIN SODIUM 1,000 UN/ML (10ML VL) ONE; IOPAMIDOL-370 125ML BTL INJ ONE; IPRATROPIUM 0.5 MG/2.5 ML NEBU INHALATION SCH; ISOSORBIDE MONONITRATE ER 30 MG TAB.ER.24H PO SCH; LEVOTHYROXINE 50 MCG TAB PO SCH; LIDOCAINE 1% INJ 10MG/ML (20 ML MDV) ONE; LIDOCAINE 1% INJ 10MG/ML (20 ML MDV) SQ ONE; LOSARTAN 50 MG TAB PO SCH; METOPROLOL SUCCINATE (ER) 100 MG TAB.ER.24H PO SCH; MULTIVITAMINS, THERA 1 EACH TAB PO SCH; NITROGLYCERIN SL TABS 0.4 MG TAB SUBLINGUAL PRN; RX INFO: IV CONTRAST WAS GIVEN 1 EACH MISC MISCELLANE PRN; SODIUM CHLORIDE 0.9% 1,000 ML IV ONE; SODIUM CHLORIDE 0.9% 1,000 ML IV SCH; SODIUM CHLORIDE 0.9% 1,000 ML in EMPTY BAG 1 BAG IV ONE; VERAPAMIL 2.5 MG/ML 2 ML AMP ONE; VERAPAMIL SYRINGE (5 MG/10 ML) INTRAARTER ONE; fentaNYL (PF) 50 MCG/ML 2 ML AMP IV ONE; fentaNYL (PF) 50 MCG/ML 2 ML AMP ONE
[2020-06-21 07:01] LABS: Glucose,Whole Blood 112 mg/dL (75-99)
[2020-06-21 07:16] VITALS: TEMP 98.6
[2020-06-21 07:24] LABS: Calcium 9.9 mg/dL (8.4-10.2)
[2020-06-21 09:28] LABS: Appearance,Urine Clear (Clear); Bilirubin,Urine Negative (Negative); Blood,Urine Negative (Negative); Color,Urine Light Yellow; Glucose,Urine (UA) Negative (Negative); Ketones,Urine Negative (Negative); Leukocyte Esterase,Urine Negative (Negative); Nitrite,Urine Negative (Negative); Protein,Urine Negative (Negative); Specific Gravity,Urine 1.019 (1.001-1.035); Urobilinogen,Urine <2.0 mg/dL (<2.0)
--- NOTE | 2020-06-21 09:38 | CC ---
CARDIAC CATHETERIZATION REPORT Mr. Tinoco is a 79-year-old male with known history of coronary artery disease, history of hypertension, hyperlipidemia, diabetes mellitus, who had underwent a percutaneous revascularization in 2001. He has recently has been complaining of some chest discomfort, underwent a stress test that revealed evidence of inducible ischemia involving the inferolateral wall. In view of that, recommendation made regarding cardiac catheterization. The procedures, risks, and complications were discussed with the patient who is in full understanding and agreement. PROCEDURE: Patient was brought to labor representative in a fasting semi-sedated state after receiving fentanyl and Benadryl and achieving moderate conscious sedated state. Using Xylocaine anesthesia and Seldinger technique, a 6-Iranian sheath was introduced in the right radial artery. Selective right and left coronary angiography performed using 5-Iranian 3.5 bend right and left Michael catheter, multiple views of the coronary artery including hemiaxial views obtained. Following that, a 5-Iranian tight pigtail catheter was introduced into the left ventricle and pressures were calculated. Following that, catheter and sheath were removed. Hemostasis was obtained with deployment of a TR band. There was no immediate complication. Patient is returned to his room in stable condition. Of note, the patient received 5000 units of intravenous heparin as well as intra-arterial verapamil. FINDINGS: FLUOROSCOPY: There was severe calcification involving the left main, the LAD and the right coronary artery. LEFT MAIN: This is a short-size vessel, bifurcating into left circumflex, left anterior descending artery. Left main coronary artery has no evidence of high-grade stenosis. LEFT ANTERIOR DESCENDING ARTERY: This is a large-sized vessel reaching toward the apex with a wraparound apex segment, giving rise to two diagonal branches, the second diagonal branch has an 80% stenosis proximally. The LAD prior to the takeoff of the first septal perforators has a very eccentric lesion of about 70% to 80%. There is another plaque after the takeoff of the second diagonal branch about 70%. The rest of the vessel has no high-grade stenosis. LEFT CIRCUMFLEX: This is a small nondominant vessel, giving rise to two obtuse marginal branches of small caliber. The proximal left circumflex has an 80% to 90% stenosis. RIGHT CORONARY ARTERY: This is a dominant vessel, large in caliber, heavily calcified, bifurcating distally into PDA and posterolateral segment and branches. The right coronary artery in the proximal mid segment has mild intimal disease of 20% to 30%, distally has a long plaque of 70% at the bifurcation of the PDA and PLV has a complex lesion of 99% involving the segment prior to the bifurcation as well as extending into the PLV. LEFT VENTRICULOGRAM: Left ventriculogram was not performed. HEMODYNAMICS: There was no gradient across the aortic valve. The left ventricle end- diastolic pressure was 8-10 mmHg. CONCLUSION: 1. Heavily calcified coronary arteries. 2. Severe triple-vessel coronary disease. RECOMMENDATION: At this time, I would recommend to obtain the opinion of the cardiovascular surgeon team, in view of the history of diabetes and the appearance of his anatomy and depending on that, further recommendation will be made. Those findings and recommendations were discussed with the patient and his family and they are in full understanding and agreement. Duration of sedation is 19 minutes. MMODL / IJN: [id number] /
--- NOTE | 2020-06-21 09:41 | LTR ---
DATE OF SERVICE: 06/21/2020 RE: Francisco Tinoco Dear Dr. Ferrell; I had the pleasure to perform cardiac catheterization on Mr. Tinoco on [facility] on June 21, 2020 and a full copy of the procedure note will be forwarded to you. In brief, he was found to have heavily calcified coronary artery with severe triple- vessel coronary disease and based on those findings, I recommend to proceed with evaluation for possible coronary artery bypass grafting. I will keep you updated on his progress and thank you again for allowing me to participate in this patient's care. Please feel free to call for any questions. Sincerely yours, MD MOE EnglishL / STACIN: [id number] /
--- NOTE | 2020-06-21 10:05 | XR ---
EXAMINATION TYPE: XR chest 2V DATE OF EXAM: 06/21/2020 COMPARISON: 12/04/2019 TECHNIQUE: PA and lateral views submitted. HISTORY: Preop FINDINGS: Diffuse hyperinflation compatible COPD. Hypertrophic and degenerative changes spine. No overt failure . Heart size normal. Subsegmental changes at both lung bases are stable likely in the basis of chroni c atelectasis or scar. Could not exclude an 8 mm nodule left lower lobe which also would be stable. IMPRESSION: 1. Diffuse COPD. 2. There is a 8 mm left lower lobe pulmonary nodule. Stable from 08/29/2018.
--- NOTE | 2020-06-21 10:55 | US ---
EXAMINATION TYPE: US carotid duplex BILAT DATE OF EXAM: 06/21/2020 COMPARISON: NONE CLINICAL HISTORY: Pre-Op Cardiac Surgery. PreCabg. No hx TIA EXAM MEASUREMENTS: RIGHT: Peak Systolic Velocity (PSV) cm/sec ----- Right CCA: 50.5 ----- Right ICA: 93.3 ----- Right ECA: 108.6 ICA/CCA ratio: 1.8 RIGHT: End Diastole cm/sec ----- Right CCA: 7.8 ----- Right ICA: 15.3 ----- Right ECA: 0.0 LEFT: Peak Systolic Velocity (PSV) cm/sec ----- Left CCA: 57.5 ----- Left ICA: 93.1 ----- Left ECA: 178.7 ICA/CCA ratio: 1.6 LEFT: End Diastole cm/sec ----- Left CCA: 8.6 ----- Left ICA: 11.5 ----- Left ECA: 13.7 VERTEBRALS (direction of flow): Right Vertebral: Antegrade Left Vertebral: Antegrade Rhythm: Normal No significant stenosis. Elevated left ECA. Plaque seen in bilateral bulbs and proximal ICA. Wall thickening. IMPRESSION: 1. Atherosclerotic change with no significant hemodynamic stenosis. Criteria for Assigning % of Stenosis / Diameter reduction (Estimation based on the indirect measurements of the internal carotid artery velocities (ICA PSV). 1. Normal (no stenosis)=ICA PSV < 125 cm/s: ratio < 2.0: ICA EDV<40 cm/s. 2. Less than 50% stenosis=ICA PSV < 125 cm/s: ratio < 2.0: ICA EDV<40 cm/s. 3. 50 to 69% stenosis=ICA PSV of 125 to 230 cm/s: ration 2.0 ? 4.0: ICA EDV 40-100 cm/s. 4. Greater than 70% stenosis to near occlusion= ICA PSV > 230 cm/s: ratio > 4.0: ICA EDV > 100 cm/s. 5. Near occlusion= ICA PSV velocities may be low or undetectable: variable ratio and ICA EDV. 6. Total occlusion=unable to detect flow.
--- NOTE | 2020-06-21 11:20 | P.GSCN ---
History of Present Illness Consult date: 06/21/20 Reason for Consult: Heavily calcified triple vessel coronary artery disease Requesting physician: Arianne Mandujano History of present illness: This is an active 79-year-old gentleman who follows with Dr. Ferrell for primary care, Dr. Mandujano for cardiology, and Dr. Cui for pulmonology. He has a previous medical history of coronary artery disease with stent placement in 2002, hypertension, type 2 diabetes mellitus, hypothyroid status post partial thyroidectomy, COPD with previous tobacco dependence, decreased GFR per patient due to aspirin and ibuprofen use, and family history of breast cancer and stroke. The patient had been experiencing chest pain as well as mild shortness of breath both with activity and at rest. He denied any symptoms of weakness, nausea, vomiting, diarrhea, syncopal episodes, strokelike symptoms, fevers or any sick contacts. He did endorse a couple of episodes of dizziness with quick movement. He underwent stress testing which demonstrated evidence of inducible ischemia involving the inferolateral wall. He was recommended to undergo heart catheterization which was completed today and which demonstrated 2 areas of stenosis in the LAD ranging from 70-80% along with 80% proximal stenosis of the second diagonal branch, proximal left circumflex stenosis 80-90%, distal RCA st enosis 70% at the bifurcation of the PDA and PLB with 99% complex lesion involving the PLB. Due to these findings consultation was placed to Dr. Cantor from cardiothoracic surgery for surgical revascularization recommendations. 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 frequencies History of Any Multi-Drug Resistant Organisms: None Reported Past Surgical History: Heart Catheterization With Stent Additional Past Surgical History / Comment(s): 1/2 thyroid removed, stent card in wallet, nessa cataract removal & lens implanted, lasik on right eye Past Anesthesia/Blood Transfusion Reactions: No Reported Reaction Date of Last Stent Placement:: 2002 Past Psychological History: No Psychological Hx Reported Smoking Status: Former smoker Past Alcohol Use History: Occasional Additional Past Alcohol Use History / Comment(s): Drinks 2-3 glasses of wine approximately once a week; quit smoking 20 years ago Past Drug Use History: None Reported - Past Family History Mother Family Medical History: Cancer Additional Family Medical History / Comment(s): sx: appendix; CA: breast ( from) Father Family Medical History: COPD, CVA/TIA Additional Family Medical History / Comment(s): CVA in 1978 ( from), sinus sx Medications and Allergies Home Medications Medication Instructions Recorded Confirmed Type Albuterol Inhaler (Mhu) [Ventolin 2 puff INHALATION RT-QID PRN 12/11/15 06/21/20 History Hfa Inhaler] Aspirin [Adult Low Dose Aspirin EC] 81 mg PO Q48H 12/11/15 06/21/20 History Calcium Carbonate/Vitamin D3 1 tab PO W/LUNCH 12/11/15 06/21/20 History [Calcium 600 + Vit D 400 Tablet] Fluticasone/Salmeterol [Advair 1 puff INHALATION RT-BID 12/11/15 06/21/20 History 500-50 Diskus] Levothyroxine Sodium [Synthroid] 50 mcg PO DAILY 12/11/15 06/21/20 History Losartan Potassium [Cozaar] 100 mg PO DAILY 12/11/15 06/21/20 History Metoprolol Succinate (ER) [Toprol 100 mg PO DAILY 12/11/15 06/21/20 History Xl] Multivitamin [Men's Multi-Vitamin] 1 tab PO W/LUNCH 12/11/15 06/21/20 History Tiotropium 18 Mcg/Puff [Spiriva] 1 cap INHALATION RT-DAILY 12/11/15 06/21/20 History metFORMIN HCL [Glucophage] 500 mg PO PC-SUPPER 12/11/15 06/21/20 History Cyanocobalamin (Vitamin B-12) 1,000 mcg PO W/LUNCH 12/04/19 06/21/20 History [Vitamin B-12] Ipratropium [place] 0.06%Nasal 1 spray EA NOSTRIL QID PRN 12/04/19 06/21/20 History [Atrovent Nasal 0.06%] Simvastatin [Zocor] 10 mg PO PC-SUPPER 12/04/19 06/21/20 History Isosorbide Mononitrate [Isosorbide 30 mg PO DAILY 06/20/20 06/21/20 History Mononitrate ER] Allergies Allergy/AdvReac Type Severity Reaction Status Date / Time No Known Allergies Allergy Verified 06/20/20 10:55 Surgical - Exam Vital Signs Temp Pulse Resp BP Pulse Ox 98.6 F 73 18 132/70 95 06/21/20 07:14 06/21/20 07:14 06/21/20 07:14 06/21/20 07:14 06/21/20 07:14 - General well developed, well nourished, no distress, no pain - Eyes PERRL, normal ocular movement - ENT decreased hearing - Neck no masses, no bruits, trachea midline - Respiratory Lungs sounds clear bilaterally. Respirations even, nonlabored. Currently on room air with oxygen saturation 95%. No chest wall deformities. No clubbing or cyanosis present. - Cardiovascular S1, S2 present. Regular rate and rhythm, sinus rhythm on telemetry. Palpable peripheral pulses bilaterally. No edema present. No calf pain or tenderness noted. Left radial Bk's test less than 8 seconds. No varicosities noted. Right radial artery with T band in place. - Abdomen Abdomen: soft, non tender, bowel sounds - Genitourinary Deferred - Rectum Deferred - Integumentary no rash, no growths - Neurologic normal coordination, normal sensation - Musculoskeletal normal posture - Psychiatric oriented to time, oriented to person, oriented to place, speech is normal, memory intact Results - Labs 06/21/20 06:55 Abnormal Lab Results - Last 24 Hours (Table) 06/21/20 06/21/20 Range/Units 06:53 06:55 BUN 36 H (9-20) mg/dL Creatinine 1.57 H (0.66-1.25) mg/dL Glucose 118 H (74-99) mg/dL POC Glucose (mg/dL) 112 H (75-99) mg/dL Diabetes panel 06/21/20 Range/Units 06:55 Sodium 137 (137-145) mmol/L Potassium 5.0 (3.5-5.1) mmol/L Chloride 106 (98-107) mmol/L Carbon Dioxide 22 (22-30) mmol/L BUN 36 H (9-20) mg/dL Creatinine 1.57 H (0.66-1.25) mg/dL Glucose 118 H (74-99) mg/dL Calcium 9.9 (8.4-10.2) mg/dL Calcium panel 06/21/20 Range/Units 06:55 Calcium 9.9 (8.4-10.2) mg/dL Pituitary panel 06/21/20 Range/Units 06:55 Sodium 137 (137-145) mmol/L Potassium 5.0 (3.5-5.1) mmol/L Chloride 106 (98-107) mmol/L Carbon Dioxide 22 (22-30) mmol/L BUN 36 H (9-20) mg/dL Creatinine 1.57 H (0.66-1.25) mg/dL Glucose 118 H (74-99) mg/dL Calcium 9.9 (8.4-10.2) mg/dL Adrenal panel 06/21/20 Range/Units 06:55 Sodium 137 (137-145) mmol/L Potassium 5.0 (3.5-5.1) mmol/L Chloride 106 (98-107) mmol/L Carbon Dioxide 22 (22-30) mmol/L BUN 36 H (9-20) mg/dL Creatinine 1.57 H (0.66-1.25) mg/dL Glucose 118 H (74-99) mg/dL Calcium 9.9 (8.4-10.2) mg/dL - Imaging Chest x-ray: report reviewed, image reviewed Additional studies: Heart catheterization films were reviewed with Dr. Cantor, carotid Doppler results reviewed Assessment and Plan Assessment: 1. Heavily calcified triple vessel coronary artery disease, history of stent placement 2. History of hypertension, currently treated 3. Type 2 diabetes mellitus, on oral medication 4. Hypothyroid status post partial thyroidectomy 5. COPD 6. Previous tobacco dependence 7. Decreased GFR 8. Family history of breast cancer and stroke Plan: The patient was seen and examined in the extended stay unit with Dr. Cantor. Chart/diagnostics were reviewed. The usual perioperative course of coronary artery bypass surgery was discussed in detail with the patient and his , risks and benefits were reviewed, all questions were answered. The patient is agreeable to preoperative workup and preoperative testing was initiated. We will obtain echocardiogram report from cardiology office. The patient does see Dr. Cui on an outpatient basis and appointment was made for next Friday for pulmonary function test and preoperative evaluation with Dr. Cui. Once preoperative testing has been completed the patient may be discharged to home from our standpoint to follow up with Dr. Cantor next Friday in the office to plan surgical date pending review of preoperative testing. We recommend c ontinuing to maximize medical therapy with aspirin, statin, beta apolinar therapy. More recommendations to follow Thank you Dr. Mandujano for this consult. We look forward to working with you in the care of your patient The patient was seen and examined and I agree with the assessment and plan documented by the nurse practitioner Time with Patient: Greater than 30
[2020-06-21 13:08] LABS: Basophils # (A) 0.1 k/uL (0-0.2); Basophils % (A) 1 %; Eosinophils # (A) 0.1 k/uL (0-0.7); Eosinophils % (A) 2 %; HCT 44.1 % (39.0-53.0); HGB 14.9 gm/dL (13.0-17.5); Lymphocytes % (A) 13 %; MCH 33.9 pg (25.0-35.0); MCHC 33.8 g/dL (31.0-37.0); MCV 100.4 fL (80.0-100.0); Monocytes # (A) 0.5 k/uL (0-1.0); Monocytes % (A) 7 %; Neutrophils # (A) 5.6 k/uL (1.3-7.7); Neutrophils % (A) 76 %; Platelet Count 162 k/uL (150-450); RDW 13.2 % (11.5-15.5); WBC 7.4 k/uL (3.8-10.6)
[2020-06-21 13:19] LABS: Partial Thromboplastin Time 26.1 sec (22.0-30.0); Prothrombin Time 10.2 sec (9.0-12.0)
[2020-06-21 13:24] LABS: Albumin 4.4 g/dL (3.5-5.0); Calcium 9.6 mg/dL (8.4-10.2); Total Bilirubin 1.4 mg/dL (0.2-1.3)
[2020-06-21 14:26] LABS: Potassium 4.5 mmol/L (3.5-5.1)
[2020-06-21 16:48] VITALS: RESP 16
[2020-06-21 17:31] VITALS: BP 116/61; PULSE 64
[2020-06-21 22:05] LABS: Hemoglobin A1C 5.2 % (4.0-6.0)
[2020-06-21 22:26] LABS: Hepatitis A Antibody IgM Non-Reactive (Non-Reactive); Hepatitis B Core IgM Non-Reactive (Non-Reactive); Hepatitis B Surface Antigen Non-Reactive (Non-Reactive); Hepatitis C IgG Antibody Non-Reactive (Non-Reactive)
== END | disposition home or self-care (01) ==
LOC: CATHCVL 06:05
PROVIDERS: ATTEND Internal Medicine Interventional Cardiology
DX: I25.10 Atherosclerotic heart disease of native coronary artery without angina pectoris (principal); R07.89 Other chest pain; R94.39 Abnormal result of other cardiovascular function study; R12 Heartburn; R06.02 Shortness of breath; R06.09 Other forms of dyspnea; R42 Dizziness and giddiness; E78.2 Mixed hyperlipidemia; I12.9 Hypertensive chronic kidney disease with stage 1 through stage 4 chronic kidney disease, or unspecified chronic kidney disease; E11.22 Type 2 diabetes mellitus with diabetic chronic kidney disease; N18.9 Chronic kidney disease, unspecified; I73.9 Peripheral vascular disease, unspecified; E89.0 Postprocedural hypothyroidism; J44.9 Chronic obstructive pulmonary disease, unspecified; K22.70 Barrett's esophagus without dysplasia; H91.8X9 Other specified hearing loss, unspecified ear; Z87.891 Personal history of nicotine dependence; Z95.5 Presence of coronary angioplasty implant and graft; Z79.899 Other long term (current) drug therapy; Z79.82 Long term (current) use of aspirin; Z79.84 Long term (current) use of oral hypoglycemic drugs; Z79.890 Hormone replacement therapy; Z79.51 Long term (current) use of inhaled steroids; Z98.41 Cataract extraction status, right eye; Z98.42 Cataract extraction status, left eye; Z96.1 Presence of intraocular lens; Z98.890 Other specified postprocedural states; Z82.49 Family history of ischemic heart disease and other diseases of the circulatory system; Z80.3 Family history of malignant neoplasm of breast; Z82.3 Family history of stroke; Z82.5 Family history of asthma and other chronic lower respiratory diseases
CPT/HCPCS: 93458; 80061; 80053; 80074; 84443; 83735; 85025; 85610; 85730; 81003; 87070; 83036; 71046; 93970; 93922; 93880; C1769; C1894; J2001; J3010; J1644; Q9967; 80048

== ENCOUNTER → 2020-07-12 | Outpatient (CLI) | payer MEDICARE ==
[2020-07-12 10:52] LABS: HCT 41.6 % (39.0-53.0); HGB 13.9 gm/dL (13.0-17.5); MCH 32.7 pg (25.0-35.0); MCHC 33.5 g/dL (31.0-37.0); MCV 97.7 fL (80.0-100.0); Platelet Count 162 k/uL (150-450); RBC 4.26 m/uL (4.30-5.90); RDW 13.7 % (11.5-15.5)
[2020-07-12 10:59] LABS: INR 0.9 (<1.2); Partial Thromboplastin Time 25.9 sec (22.0-30.0); Prothrombin Time 9.9 sec (9.0-12.0)
[2020-07-12 11:02] LABS: Albumin 4.3 g/dL (3.5-5.0); Calcium 9.5 mg/dL (8.4-10.2); Potassium 4.6 mmol/L (3.5-5.1); Total Bilirubin 1.5 mg/dL (0.2-1.3)
--- NOTE | 2020-07-12 11:50 | P.PN ---
Progress Note - Text Progress Note Date: 07/12/20 5 meter walk test completed this morning which patient tolerated well: #1 4.21 sec #2 4.59 sec #3 4.43 sec In addition, STS risk score was calculated and discussed with the patient
== END | disposition home or self-care (01) ==
LOC: LABPAT 09:10
PROVIDERS: ATTEND Surgery
DX: Z01.810 Encounter for preprocedural cardiovascular examination (principal); I25.10 Atherosclerotic heart disease of native coronary artery without angina pectoris; U07.1 COVID-19; E11.9 Type 2 diabetes mellitus without complications; Z79.01 Long term (current) use of anticoagulants; Z79.899 Other long term (current) drug therapy
CPT/HCPCS: 80053; 85027; 85610; 85730; 36415; U0003; C9803

== ENCOUNTER 2020-07-18 05:49 | Inpatient (IN) | payer MEDICARE ==
[~2020-07-18 05:49] MED LIST changes: +ALBUMIN HUMAN 25% 50 ML IV ONE; +ALBUMIN HUMAN 5% 500 ML IVPB ONE; -ALPRAZolam 0.25 MG TAB PO PRN; -ALPRAZolam 0.5 MG TAB PO PRN; +ASPIRIN 325 MG TAB PO ONE; -ASPIRIN 325 MG TAB PO STA; -ASPIRIN 81 MG PO SCH; +ATORVASTATIN 10 MG TAB PO ONE; -ATORVASTATIN 10 MG TAB PO SCH; -ATORVASTATIN 80 MG TAB PO STA; +CALCIUM CHLORIDE 100 MG/ML 10 ML SYRINGE IV ONE; +CHLORHEXIDINE GLUCONATE 15 ML CUP MUCOUS MEM ONE; +CLEVIDIPINE BUTYRATE 25 MG in EMPTY BAG 1 BAG IV ONE; +DEXTROSE 5% IN WATER 1,000 ML with POTASSIUM CHLORIDE 110 MEQ, MAGNESIUM SULFATE 16 MEQ... IV ONE; +DEXTROSE 5% IN WATER 1,000 ML with POTASSIUM CHLORIDE 25 MEQ, SODIUM CHLORIDE 2.5MEQ/ML... IRRIGATION ONE; +HEPARIN SODIUM 1,000 UN/ML (10ML VL) IV ONE; -HEPARIN SODIUM 1,000 UN/ML (10ML VL) ONE; +HEPARIN SODIUM,PORCINE 5,000 UNIT in SODIUM CHLORIDE 0.9% 500 ML 500 ML IV ONE; +INSULIN REGULAR 100 UNIT in SODIUM CHLORIDE 0.9% 100 ML IV ONE; -IOPAMIDOL-370 125ML BTL INJ ONE; -IPRATROPIUM 0.5 MG/2.5 ML NEBU INHALATION SCH; -ISOSORBIDE MONONITRATE ER 30 MG TAB.ER.24H PO SCH; +LACTATED RINGERS 1,000 ML IV ONE; -LEVOTHYROXINE 50 MCG TAB PO SCH; -LIDOCAINE 1% INJ 10MG/ML (20 ML MDV) ONE; -LIDOCAINE 1% INJ 10MG/ML (20 ML MDV) SQ ONE; -LOSARTAN 50 MG TAB PO SCH; +MAGNESIUM SULFATE MG 500 MG/ML IV ONE; +MANNITOL 25% 12.5 GM/50 ML VIAL IV ONE; -METOPROLOL SUCCINATE (ER) 100 MG TAB.ER.24H PO SCH; +METOPROLOL TARTRATE 12.5 MG TAB PO ONE; -MULTIVITAMINS, THERA 1 EACH TAB PO SCH; -NITROGLYCERIN SL TABS 0.4 MG TAB SUBLINGUAL PRN; +NITROGLYCERIN-D5W PMX 25 MG/250 ML BTL IV ONE; +NITROGLYCERIN-D5W PMX 50 MG in DEXTROSE/WATER 1 250ML.BAG IV ONE; +NOREPINEPHRINE 4 MG in SODIUM CHLORIDE 0.9% 250 ML IV ONE; +PAPAVERINE 360 MG in SODIUM CHLORIDE 0.9% 90 ML IV ONE; +PHENYLEPHRINE 10 MG/ML VIAL IV ONE; +PHENYLEPHRINE 40 MG in SODIUM CHLORIDE 0.9% 250 ML IV ONE; +PROTAMINE SULFATE 10 MG/ML 25 ML VIAL IV ONE; +PROTAMINE SULFATE 250 MG in EMPTY BAG 1 BAG IV ONE; -RX INFO: IV CONTRAST WAS GIVEN 1 EACH MISC MISCELLANE PRN; +SODIUM BICARB 8.4% 50 ML SYR (1 MEQ/ML) IV ONE; -SODIUM CHLORIDE 0.9% 1,000 ML IV SCH; -SODIUM CHLORIDE 0.9% 1,000 ML in EMPTY BAG 1 BAG IV ONE; +TRANEXAMIC ACID 2,000 MG in SODIUM CHLORIDE 0.9% 80 ML IV ONE; -VERAPAMIL 2.5 MG/ML 2 ML AMP ONE; -VERAPAMIL SYRINGE (5 MG/10 ML) INTRAARTER ONE; +ceFAZolin 1,000 MG in SODIUM CHLORIDE 0.9% IRRIGATIO 1,000 ML IRRIGATION ONE; +ceFAZolin 2,000 MG in SODIUM CHLORIDE 0.9% 30 ML IVPB ONE; -fentaNYL (PF) 50 MCG/ML 2 ML AMP IV ONE; -fentaNYL (PF) 50 MCG/ML 2 ML AMP ONE; +propofoL 1,000 MG/100 ML VIAL IV ONE
[2020-07-18 06:27] LABS: Glucose,Whole Blood 107 mg/dL (75-99)
[2020-07-18] MEDS ORDERED: LIDOCAINE 1% (10MG/ML) FOR IV START INTRADERMA ONE (06:29)
[2020-07-18] MEDS ORDERED: LIDOCAINE 2% SYG (PF) 100 MG/5 ML ONE (07:33)
[2020-07-18] MEDS ORDERED: fentaNYL (PF) 50 MCG/ML 50 ML VIAL ONE (07:33)
[2020-07-18] MEDS ORDERED: fentaNYL (PF) 50 MCG/ML 2 ML AMP ONE (07:33)
[2020-07-18] MEDS ORDERED: PROPOFOL 10 MG/ML 20 ML VIAL IV ONE (07:33)
[2020-07-18] MEDS ORDERED: VECURONIUM 10 MG VIAL IV ONE (07:33)
[2020-07-18] MEDS ORDERED: SODIUM CHLORIDE 0.9% 250 ML BAG ONE (07:33)
[2020-07-18] MEDS ORDERED: HEPARIN SODIUM,PORCINE 10,000 UNIT/ML 1 ML VIAL ONE (07:33)
[2020-07-18] MEDS ORDERED: SODIUM CHLORIDE 0.9% IRRIG 1,000 ML BTL IRRIGATION ONE (07:33)
[2020-07-18] MEDS ORDERED: ELECTROLYTE-R (PH 7.4) 1,000 ML IV.SOLN IV ONE (07:33)
[2020-07-18] MEDS ORDERED: PROTAMINE SULFATE 10 MG/ML 25 ML VIAL IV ONE (07:33)
[2020-07-18] MEDS ORDERED: CALCIUM CHLORIDE 100 MG/ML 10 ML SYRINGE ONE (07:33)
[2020-07-18] MEDS ORDERED: TRANEXAMIC ACID 1,000 MG/10 ML VIAL ONE (07:33)
[2020-07-18] MEDS ORDERED: MAGNESIUM SULFATE 4 MEQ/ML 10ML VIAL ONE (07:33)
[2020-07-18] MEDS ORDERED: MIDAZOLAM 2 MG/2 ML VIAL ONE (07:33)
[2020-07-18] MEDS ORDERED: NITROGLYCERIN-D5W PMX 50 MG/250 ML BOTTLE IV ONE (07:33)
[2020-07-18] MEDS ORDERED: SUCCINYLCHOLINE CHLORIDE 100 MG/5 ML SYR IV ONE (07:33)
[2020-07-18] MEDS ORDERED: INSULIN REGULAR 100 UNIT/ML VIAL ONE (07:33)
[2020-07-18 08:50] LABS: ABG Base Excess -2.7 mmol/L; ABG Glucose Whole Blood 105 mg/dL (75-99); ABG HCO3 23 mmol/L (21-25); ABG Hematocrit 36 % (34.0-46.0); ABG Lactic Acid Whole Blood 1.5 mmol/L (0.5-1.6); ABG PCO2 43 mmHg (35-45); ABG PH 7.34 (7.35-7.45); ABG PO2 375 mmHg (83-108); ABG Potassium Whole Blood 4.7 mmol/L (3.4-4.5); ABG Sodium Whole Blood 137 mmol/L (135-146); ABG TCO2 24 mmol/L (19-24)
[2020-07-18] MEDS ORDERED: SODIUM CHLORIDE 0.9% 500 ML 500 ML with HEPARIN SODIUM,PORCINE 5,000 UNIT IV ONE ×2 (09:20)
[2020-07-18] MEDS ORDERED: ceFAZolin 1,000 MG in SODIUM CHLORIDE 0.9% 1,000 ML IRRIGATION ONE (09:21)
[2020-07-18] MEDS ORDERED: PAPAVERINE 360 MG in SODIUM CHLORIDE 0.9% 90 ML IV ONE (09:21)
[2020-07-18 11:39] LABS: ABG Glucose Whole Blood 220 mg/dL (75-99); ABG HCO3 23 mmol/L (21-25); ABG Hematocrit 36 % (34.0-46.0); ABG Ionized Calcium 5.1 mg/dL (4.5-5.3); ABG Lactic Acid Whole Blood 0.6 mmol/L (0.5-1.6); ABG Oxygen Saturation 99.2 % (94-97); ABG PCO2 68 mmHg (35-45); ABG PO2 197 mmHg (83-108); ABG Potassium Whole Blood 5.7 mmol/L (3.4-4.5); ABG Sodium Whole Blood 135 mmol/L (135-146); ABG TCO2 25 mmol/L (19-24)
[2020-07-18 11:49] LABS: ABG Base Excess -6.7 mmol/L; ABG Glucose Whole Blood 221 mg/dL (75-99); ABG HCO3 22 mmol/L (21-25); ABG Hematocrit 35 % (34.0-46.0); ABG Ionized Calcium 5.1 mg/dL (4.5-5.3); ABG Lactic Acid Whole Blood 0.6 mmol/L (0.5-1.6); ABG Oxygen Saturation 99.1 % (94-97); ABG PCO2 61 mmHg (35-45); ABG PO2 171 mmHg (83-108); ABG Potassium Whole Blood 6.1 mmol/L (3.4-4.5); ABG Sodium Whole Blood 135 mmol/L (135-146); ABG TCO2 24 mmol/L (19-24)
[2020-07-18 12:10] LABS: ABG Base Excess -6.4 mmol/L; ABG Glucose Whole Blood 221 mg/dL (75-99); ABG HCO3 20 mmol/L (21-25); ABG Ionized Calcium 4.3 mg/dL (4.5-5.3); ABG Lactic Acid Whole Blood 0.8 mmol/L (0.5-1.6); ABG PCO2 45 mmHg (35-45); ABG PH 7.26 (7.35-7.45); ABG Potassium Whole Blood 5.9 mmol/L (3.4-4.5); ABG Sodium Whole Blood 131 mmol/L (135-146); ABG TCO2 22 mmol/L (19-24)
[2020-07-18 12:38] LABS: ABG Base Excess -1.3 mmol/L; ABG Glucose Whole Blood 262 mg/dL (75-99); ABG HCO3 24 mmol/L (21-25); ABG Ionized Calcium 4.3 mg/dL (4.5-5.3); ABG Lactic Acid Whole Blood 0.9 mmol/L (0.5-1.6); ABG PCO2 44 mmHg (35-45); ABG PH 7.35 (7.35-7.45); ABG PO2 243 mmHg (83-108); ABG Sodium Whole Blood 131 mmol/L (135-146); ABG TCO2 26 mmol/L (19-24)
[2020-07-18 13:07] LABS: ABG Base Excess -2.3 mmol/L; ABG Glucose Whole Blood 233 mg/dL (75-99); ABG HCO3 23 mmol/L (21-25); ABG Ionized Calcium 4.2 mg/dL (4.5-5.3); ABG Lactic Acid Whole Blood 1.1 mmol/L (0.5-1.6); ABG PCO2 41 mmHg (35-45); ABG PH 7.36 (7.35-7.45); ABG PO2 333 mmHg (83-108); ABG Potassium Whole Blood 5.8 mmol/L (3.4-4.5); ABG Sodium Whole Blood 133 mmol/L (135-146); ABG TCO2 24 mmol/L (19-24)
[2020-07-18 13:43] LABS: ABG Base Excess -3.1 mmol/L; ABG Glucose Whole Blood 211 mg/dL (75-99); ABG HCO3 22 mmol/L (21-25); ABG Ionized Calcium 4.2 mg/dL (4.5-5.3); ABG Lactic Acid Whole Blood 1.7 mmol/L (0.5-1.6); ABG PCO2 40 mmHg (35-45); ABG PH 7.35 (7.35-7.45); ABG Potassium Whole Blood 5.6 mmol/L (3.4-4.5); ABG Sodium Whole Blood 134 mmol/L (135-146); ABG TCO2 23 mmol/L (19-24)
[2020-07-18 14:37] LABS: ABG Base Excess -1.1 mmol/L; ABG Glucose Whole Blood 153 mg/dL (75-99); ABG HCO3 26 mmol/L (21-25); ABG Hematocrit 25 % (34.0-46.0); ABG Ionized Calcium 4.7 mg/dL (4.5-5.3); ABG Lactic Acid Whole Blood 1.8 mmol/L (0.5-1.6); ABG PCO2 53 mmHg (35-45); ABG PO2 411 mmHg (83-108); ABG Potassium Whole Blood 4.4 mmol/L (3.4-4.5); ABG Sodium Whole Blood 138 mmol/L (135-146); ABG TCO2 27 mmol/L (19-24)
[2020-07-18 15:00] LABS: ABG Base Excess -1.1 mmol/L; ABG Glucose Whole Blood 127 mg/dL (75-99); ABG HCO3 25 mmol/L (21-25); ABG Hematocrit 29 % (34.0-46.0); ABG Ionized Calcium 4.6 mg/dL (4.5-5.3); ABG PCO2 44 mmHg (35-45); ABG PH 7.35 (7.35-7.45); ABG PO2 383 mmHg (83-108); ABG Potassium Whole Blood 4.8 mmol/L (3.4-4.5); ABG Sodium Whole Blood 137 mmol/L (135-146); ABG TCO2 26 mmol/L (19-24)
[2020-07-18 15:13] LABS: ABG PH 7.14 (7.35-7.45)
[2020-07-18 15:14] LABS: ABG PH 7.17 (7.35-7.45)
[2020-07-18] MEDS ORDERED: ALBUMIN HUMAN 5% 250 ML IVPB ONE (15:14)
[2020-07-18 15:15] LABS: ABG Hematocrit 24 % (34.0-46.0); ABG PO2 >420 mmHg (83-108)
[2020-07-18 15:15] LABS: ABG Hematocrit 22 % (34.0-46.0); ABG Potassium Whole Blood 6.7 mmol/L (3.4-4.5)
[2020-07-18 15:16] LABS: ABG Hematocrit 21 % (34.0-46.0)
[2020-07-18] MEDS ORDERED: AMIODARONE 300 MG in DEXTROSE 5% IN WATER 250 ML IV PRN ×2 (15:16)
[2020-07-18] MEDS ORDERED: CALCIUM GLUCONATE 2 GM in SODIUM CHLORIDE 0.9% 100 ML IVPB PRN (15:16)
[2020-07-18] MEDS ORDERED: Potassium Replacement Protocol 1 EACH MISC MISCELLANE PRN (15:16)
[2020-07-18] MEDS ORDERED: BENZOCAINE/MENTHOL LOZENG 1 EACH LOZENGE MUCOUS MEM PRN (15:16)
[2020-07-18] MEDS ORDERED: hydrALAZINE HCL 20 MG/ML 1 ML VIAL IVP PRN (15:16)
[2020-07-18] MEDS ORDERED: Phosphorus Replacement Protoco 1 EACH MISC MISCELLANE PRN (15:16)
[2020-07-18] MEDS ORDERED: NITROGLYCERIN-D5W PMX 50 MG in DEXTROSE/WATER 1 250ML.BAG IV SCH (15:16)
[2020-07-18] MEDS ORDERED: ONDANSETRON 4 MG/2 ML VIAL IVP PRN (15:16)
[2020-07-18] MEDS ORDERED: AMIODARONE 360 MG in DEXTROSE 5% IN WATER 200 ML IV PRN ×2 (15:16)
[2020-07-18] MEDS ORDERED: DEXMEDETOMIDINE/0.9% NACL(PMX) 400 MCG in EMPTY BAG 1 BAG IV SCH (15:16)
[2020-07-18] MEDS ORDERED: Magnesium Replacement Protocol 1 EACH MISC MISCELLANE PRN (15:16)
[2020-07-18 15:17] LABS: ABG Hematocrit 21 % (34.0-46.0); ABG PO2 >420 mmHg (83-108)
[2020-07-18 15:18] LABS: ABG Lactic Acid Whole Blood 2.2 mmol/L (0.5-1.6)
[2020-07-18] MEDS: ALBUMIN HUMAN 5% 250 ML in EMPTY BAG 1 BAG IVPB PRN ×2 (15:30→20:20)
[2020-07-18 16:03] LABS: Glucose,Whole Blood 102 mg/dL (75-99)
[2020-07-18 16:03] LABS: Glucose,Whole Blood 94 mg/dL (75-99)
--- NOTE | 2020-07-18 16:04 | XR ---
EXAMINATION TYPE: XR chest 1V portable DATE OF EXAM: 07/18/2020 COMPARISON: 06/21/2020 HISTORY: Postop TECHNIQUE: Single frontal view of the chest is obtained. FINDINGS: [place]oy[place]-Aura catheter, mediastinal drain, NG tube and ET tube noted. Changes of COPD suggeste d. Subcutaneous emphysema along the upper chest are seen. No definite sizable pneumothorax. Bilateral lower lobe consolidation and small effusion. Postsurgical changes noted. Tip of the Loyall-Aura cathet er at the level the proximal pulmonary outflow tract. IMPRESSION: 1. Postoperative changes with basilar consolidation and small effusion superimposed on a background C OPD. 2. Lucencies along the upper chest bilaterally likely related to subcutaneous emphysema with no defin ite sizable pneumothorax. Correlate clinically.
[2020-07-18 16:14] LABS: Basophils % (A) 0 %; Eosinophils % (A) 0 %; HCT 26.1 % (39.0-53.0); Ionized Calcium 4.8 mg/dL (4.5-5.3); Lymphocytes # (A) 0.6 k/uL (1.0-4.8); Lymphocytes % (A) 5 %; MCH 32.6 pg (25.0-35.0); MCHC 33.3 g/dL (31.0-37.0); MCV 97.9 fL (80.0-100.0); Mean Platelet Volume 7.1; Monocytes # (A) 0.9 k/uL (0-1.0); Monocytes % (A) 7 %; Neutrophils # (A) 10.9 k/uL (1.3-7.7); Neutrophils % (A) 87 %; RBC 2.66 m/uL (4.30-5.90); RDW 14.2 % (11.5-15.5); WBC 12.5 k/uL (3.8-10.6)
[2020-07-18 16:25] LABS: ALT 21 U/L (4-49); AST 40 U/L (17-59); African American GFR (CKD) 67 (>60 ml/min/1.73 sqM); Albumin 2.8 g/dL (3.5-5.0); Alkaline Phosphatase <20 U/L (38-126); Anion Gap 3 mmol/L; Blood Urea Nitrogen 26 mg/dL (9-20); Calcium 7.7 mg/dL (8.4-10.2); Carbon Dioxide 26 mmol/L (22-30); Chloride 109 mmol/L (98-107); Glucose 98 mg/dL (74-99); Magnesium 2.4 mg/dL (1.6-2.3); Non-African American GFR(CKD) 58 (>60 ml/min/1.73 sqM); Potassium 4.2 mmol/L (3.5-5.1); Sodium 138 mmol/L (137-145); Total Bilirubin 1.3 mg/dL (0.2-1.3); Total Protein 4.4 g/dL (6.3-8.2)
[2020-07-18 16:26] LABS: HGB 8.7 gm/dL (13.0-17.5); INR 1.3 (<1.2); Partial Thromboplastin Time 33.8 sec (22.0-30.0); Platelet Count 74 k/uL (150-450); Prothrombin Time 13.2 sec (9.0-12.0)
[2020-07-18] MEDS: CLEVIDIPINE BUTYRATE 25 MG in EMPTY BAG 1 BAG IV SCH (16:30)
[2020-07-18] MEDS ORDERED: CALCIUM GLUCONATE 1 GM in SODIUM CHLORIDE 0.9% 100 ML IVPB ONE (16:32)
[2020-07-18] MEDS: IPRATROPIUM-ALBUTEROL 3 ML NEB INHALATION SCH ×4 (16:37→20:16)
--- NOTE | 2020-07-18 16:59 | P.CONS ---
History of Present Illness - Reason for Consult Consult date: 07/18/20 diabetes Requesting physician: Estee Cantor - Chief Complaint chest pain - History of Present Illness Patient is a 79 yo male with CAD, HTN, DM 2 well controlled on metformin with last A1C 5.2, and hypothyroidism after partial thyroidectomy who underwent a 2 vessel CABG on 07/18/2020. He arrived to the ICU in typical fashion. Patient seen and examined at bedside. He remains sedated on the vent. D/W nursing. Review of Systems Pertinent positives and negatives as discussed in HPI, a complete review of systems was performed and all other systems are negative. 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, pneumonia in November, some decreased kidney function History of Any Multi-Drug Resistant Organisms: None Reported Past Surgical History: Heart Catheterization, Heart Catheterization With Stent Additional Past Surgical History / Comment(s): 1/2 thyroid removed, nessa cataract removal & lens implanted, lasik on nessa eyes, EGD Past Anesthesia/Blood Transfusion Reactions: No Reported Reaction Date of Last Stent Placement:: 2002 Smoking Status: Former smoker - Past Family History Mother Family Medical History: Cancer Additional Family Medical History / Comment(s): sx: appendix; CA: breast ( from) Father Family Medical History: COPD, CVA/TIA Additional Family Medical History / Comment(s): CVA in 1978 ( from), sinus sx Medications and Allergies Home Medications Medication Instructions Recorded Confirmed Type Albuterol Inhaler (Mhu) [Ventolin 2 puff INHALATION RT-QID PRN 12/11/15 07/14/20 History Hfa Inhaler] Aspirin [Adult Low Dose Aspirin EC] 81 mg PO DAILY 12/11/15 07/14/20 History Calcium Carbonate/Vitamin D3 1 tab PO W/LUNCH 12/11/15 07/18/20 History [Calcium 600 + Vit D 400 Tablet] Fluticasone/Salmeterol [Advair 1 puff INHALATION RT-BID 12/11/15 07/14/20 History 500-50 Diskus] Levothyroxine Sodium [Synthroid] 50 mcg PO DAILY 12/11/15 07/18/20 History Losartan Potassium [Cozaar] 100 mg PO DAILY 12/11/15 07/18/20 History Metoprolol Succinate (ER) [Toprol 100 mg PO DAILY 12/11/15 07/18/20 History Xl] Multivitamin [Men's Multi-Vitamin] 1 tab PO W/LUNCH 12/11/15 07/18/20 History Tiotropium 18 Mcg/Puff [Spiriva] 1 cap INHALATION RT-DAILY 12/11/15 07/14/20 History metFORMIN HCL [Glucophage] 500 mg PO PC-SUPPER 12/11/15 07/18/20 History Ipratropium [place] 0.06%Nasal 1 spray EA NOSTRIL QID PRN 12/04/19 07/18/20 History [Atrovent Nasal 0.06%] Isosorbide Mononitrate [Isosorbide 30 mg PO DAILY 06/20/20 07/18/20 History Mononitrate ER] Atorvastatin [Lipitor] 40 mg PO HS 07/14/20 07/18/20 History Fluticasone Nasal [place] [Flonase 2 spr EA NOSTRIL DAILY PRN 07/14/20 07/18/20 History Nasal [place]] Mupirocin 2% Oint [Bactroban 2% 1 applic NASAL BID 07/14/20 07/18/20 History Oint] Nitroglycerin Sl Tabs [Nitrostat] 0.4 mg SUBLINGUAL Q5M PRN 07/14/20 07/14/20 History Allergies Allergy/AdvReac Type Severity Reaction Status Date / Time No Known Allergies Allergy Verified 07/14/20 12:50 Physical Exam Osteopathic Statement: *. No significant issues noted on an osteopathic structu ral exam other than those noted in the History and Physical/Consult. Vitals: Vital Signs Temp Pulse Resp BP Pulse Ox 07/18/20 06:23 96.8 F L 90 16 151/82 95 Intake and Output 07/18/20 07/18/20 07/18/20 06:59 14:59 22:59 Intake Total 300 56 Output Total 2650 Balance 300 -2594 Intake: IV 300 56 Output: Urine 650 Estimated Blood Loss 1999 Other: Weight 94.5 kg General: non toxic, no distress, appears older than stated age Derm: warm, dry, adriane wrap in place bilateral lower extremities Head: atraumatic, normocephalic, symmetric Eyes: EOMI, no lid lesion, anicteric sclera, pupils equal round reactive to light ENT: Nose and ears atraumatic, ET tube in place Neck: No thyromegaly, no cervical lymphadenopathy, trachea midline, supple Mouth: no lip lesion, mucus membranes moist Cardiovascular: S1S2 reg, no murmur, positive posterior tibial pulse bilateral, no edema, capillary refill less than 2 seconds, CT and mediastinal tube in place. Lungs: clear to ascultation bilateral, no ronchi, no rales, no wheeze, no accessory muscle use Abdominal: soft, nontender to palpation, no guarding, no appreciable organomegaly, normal bowel sounds Ext: no gross muscle atrophy, muscle strength muscle strength 5 out of 5 in all 4 extremities, no contractures Neuro: PERRL, no withdrawal but still sedated Psych: Sedated on vent Results CBC & Chem 7: 07/18/20 15:49 07/18/20 15:49 Labs: Abnormal Lab Results - Last 24 Hours (Table) 07/12/20 07/18/20 07/18/20 Range/Units 10:00 06:19 08:50 WBC (3.8-10.6) k/uL RBC (4.30-5.90) m/uL Hgb (13.0-17.5) gm/dL Hct (39.0-53.0) % Plt Count (150-450) k/uL Neutrophils # (1.3-7.7) k/uL Lymphocytes # (1.0-4.8) k/uL PT (9.0-12.0) sec INR (<1.2) APTT (22.0-30.0) sec ABG pH 7.34 L (7.35-7.45) ABG pCO2 (35-45) mmHg ABG pO2 375 H (83-108) mmHg ABG HCO3 (21-25) mmol/L ABG Total CO2 (19-24) mmol/L ABG O2 Saturation 100.0 H (94-97) % ABG Hematocrit (34.0-46.0) % ABG Sodium (135-146) mmol/L ABG Potassium 4.7 H (3.4-4.5) mmol/L ABG Ionized Calcium (4.5-5.3) mg/dL ABG Glucose 105 H (75-99) mg/dL ABG Lactic Acid (0.5-1.6) mmol/L Hemoglobin 11.7 L (13.0-17.5) gm/dL Chloride (98-107) mmol/L BUN (9-20) mg/dL POC Glucose (mg/dL) 107 H (75-99) mg/dL Calcium (8.4-10.2) mg/dL Magnesium (1.6-2.3) mg/dL Alkaline Phosphatase (38-126) U/L Total Protein (6.3-8.2) g/dL Albumin (3.5-5.0) g/dL Arterial Blood Potassium 4.7 H (3.4-4.5) mmol/L Arterial Blood Glucose 105 H (75-99) mg/dL Crossmatch See Detail 07/18/20 07/18/20 07/18/20 Range/Units 11:39 11:48 12:10 WBC (3.8-10.6) k/uL RBC (4.30-5.90) m/uL Hgb (13.0-17.5) gm/dL Hct (39.0-53.0) % Plt Count (150-450) k/uL Neutrophils # (1.3-7.7) k/uL Lymphocytes # (1.0-4.8) k/uL PT (9.0-12.0) sec INR (<1.2) APTT (22.0-30.0) sec ABG pH 7.14 L* 7.17 L* 7.26 L (7.35-7.45) ABG pCO2 68 H 61 H (35-45) mmHg ABG pO2 197 H 171 H >420 H (83-108) mmHg ABG HCO3 20 L (21-25) mmol/L ABG Total CO2 25 H (19-24) mmol/L ABG O2 Saturation 99.2 H 99.1 H 100.0 H (94-97) % ABG Hematocrit 24 L (34.0-46.0) % ABG Sodium 131 L (135-146) mmol/L ABG Potassium 5.7 H 6.1 H 5.9 H (3.4-4.5) mmol/L ABG Ionized Calcium 4.3 L (4.5-5.3) mg/dL ABG Glucose 220 H 221 H 221 H (75-99) mg/dL ABG Lactic Acid (0.5-1.6) mmol/L Hemoglobin 11.9 L 11.4 L 7.8 L (13.0-17.5) gm/dL Chloride (98-107) mmol/L BUN (9-20) mg/dL POC Glucose (mg/dL) (75-99) mg/dL Calcium (8.4-10.2) mg/dL Magnesium (1.6-2.3) mg/dL Alkaline Phosphatase (38-126) U/L Total Protein (6.3-8.2) g/dL Albumin (3.5-5.0) g/dL Arterial Blood Potassium 5.7 H 6.1 H 5.9 H (3.4-4.5) mmol/L Arterial Blood Glucose 220 H 221 H 221 H (75-99) mg/dL Crossmatch 07/18/20 07/18/20 07/18/20 Range/Units 12:38 13:06 13:42 WBC (3.8-10.6) k/uL RBC (4.30-5.90) m/uL Hgb (13.0-17.5) gm/dL Hct (39.0-53.0) % Plt Count (150-450) k/uL Neutrophils # (1.3-7.7) k/uL Lymphocytes # (1.0-4.8) k/uL PT (9.0-12.0) sec INR (<1.2) APTT (22.0-30.0) sec ABG pH (7.35-7.45) ABG pCO2 (35-45) mmHg ABG pO2 243 H 333 H >420 H (83-108) mmHg ABG HCO3 (21-25) mmol/L ABG Total CO2 26 H (19-24) mmol/L ABG O2 Saturation 100.0 H 100.0 H 100.0 H (94-97) % ABG Hematocrit 22 L 21 L 21 L (34.0-46.0) % ABG Sodium 131 L 133 L 134 L (135-146) mmol/L ABG Potassium 6.7 H* 5.8 H 5.6 H (3.4-4.5) mmol/L ABG Ionized Calcium 4.3 L 4.2 L 4.2 L (4.5-5.3) mg/dL ABG Glucose 262 H 233 H 211 H (75-99) mg/dL ABG Lactic Acid 1.7 H (0.5-1.6) mmol/L Hemoglobin 7.1 L 6.7 L* 6.7 L* (13.0-17.5) gm/dL Chloride (98-107) mmol/L BUN (9-20) mg/dL POC Glucose (mg/dL) (75-99) mg/dL Calcium (8.4-10.2) mg/dL Magnesium (1.6-2.3) mg/dL Alkaline Phosphatase (38-126) U/L Total Protein (6.3-8.2) g/dL Albumin (3.5-5.0) g/dL Arterial Blood Potassium 6.7 H* 5.8 H 5.6 H (3.4-4.5) mmol/L Arterial Blood Glucose 262 H 233 H 211 H (75-99) mg/dL Crossmatch 07/18/20 07/18/20 07/18/20 Range/Units 14:37 15:00 15:49 WBC 12.5 H (3.8-10.6) k/uL RBC 2.66 L (4.30-5.90) m/uL Hgb 8.7 L D (13.0-17.5) gm/dL Hct 26.1 L (39.0-53.0) % Plt Count 74 L D (150-450) k/uL Neutrophils # 10.9 H (1.3-7.7) k/uL Lymphocytes # 0.6 L (1.0-4.8) k/uL PT (9.0-12.0) sec INR (<1.2) APTT (22.0-30.0) sec ABG pH 7.30 L (7.35-7.45) ABG pCO2 53 H (35-45) mmHg ABG pO2 411 H 383 H (83-108) mmHg ABG HCO3 26 H (21-25) mmol/L ABG Total CO2 27 H 26 H (19-24) mmol/L ABG O2 Saturation 100.0 H 100.0 H (94-97) % ABG Hematocrit 25 L 29 L (34.0-46.0) % ABG Sodium (135-146) mmol/L ABG Potassium 4.8 H (3.4-4.5) mmol/L ABG Ionized Calcium (4.5-5.3) mg/dL ABG Glucose 153 H 127 H (75-99) mg/dL ABG Lactic Acid 1.8 H 2.2 H* (0.5-1.6) mmol/L Hemoglobin 8.2 L 9.5 L (13.0-17.5) gm/dL Chloride (98-107) mmol/L BUN (9-20) mg/dL POC Glucose (mg/dL) (75-99) mg/dL Calcium (8.4-10.2) mg/dL Magnesium (1.6-2.3) mg/dL Alkaline Phosphatase (38-126) U/L Total Protein (6.3-8.2) g/dL Albumin (3.5-5.0) g/dL Arterial Blood Potassium 4.8 H (3.4-4.5) mmol/L Arterial Blood Glucose 153 H 127 H (75-99) mg/dL Crossmatch 07/18/20 07/18/20 07/18/20 Range/Units 15:49 15:49 15:51 WBC (3.8-10.6) k/uL RBC (4.30-5.90) m/uL Hgb (13.0-17.5) gm/dL Hct (39.0-53.0) % Plt Count (150-450) k/uL Neutrophils # (1.3-7.7) k/uL Lymphocytes # (1.0-4.8) k/uL PT 13.2 H (9.0-12.0) sec INR 1.3 H (<1.2) APTT 33.8 H (22.0-30.0) sec ABG pH (7.35-7.45) ABG pCO2 (35-45) mmHg ABG pO2 (83-108) mmHg ABG HCO3 (21-25) mmol/L ABG Total CO2 (19-24) mmol/L ABG O2 Saturation (94-97) % ABG Hematocrit (34.0-46.0) % ABG Sodium (135-146) mmol/L ABG Potassium (3.4-4.5) mmol/L ABG Ionized Calcium (4.5-5.3) mg/dL ABG Glucose (75-99) mg/dL ABG Lactic Acid (0.5-1.6) mmol/L Hemoglobin (13.0-17.5) gm/dL Chloride 109 H (98-107) mmol/L BUN 26 H (9-20) mg/dL POC Glucose (mg/dL) 102 H (75-99) mg/dL Calcium 7.7 L (8.4-10.2) mg/dL Magnesium 2.4 H (1.6-2.3) mg/dL Alkaline Phosphatase <20 L (38-126) U/L Total Protein 4.4 L (6.3-8.2) g/dL Albumin 2.8 L (3.5-5.0) g/dL Arterial Blood Potassium (3.4-4.5) mmol/L Arterial Blood Glucose (75-99) mg/dL Crossmatch Assessment and Plan Assessment: DM 2 - hold metformin - Inulin gtt per protocol - blood sugar q1 hours - A1C from 06/21/2020 5.2 Acute blood loss anemia and thrombocytopenia, anticipated outcome of surgery - follow CBC - transfuse as indicated COPD - on spiriva and advair at home HTN - meds per CT surgery - follow BP CKD stage III - Baseline cr 1.4-1.5 - follow renal function closely after surgery Hypothyroidism - synthroid Chronic: ADDY Alcazar's Thank you for allowing us to participate in the care of this pleasant patient. Do not hesitate to contact us with questions. Someone can be reached from the [facility] hospitalist group all hours of the day at [phone] or via perfect serve.
[2020-07-18 17:02] LABS: Glucose,Whole Blood 96 mg/dL (75-99)
[2020-07-18] MEDS: SODIUM CHLORIDE 0.9% 1,000 ML IV SCH (17:12)
[2020-07-18] MEDS: ACETAMINOPHEN IV (For NPO) 1,000 MG in EMPTY BAG 1 BAG IVPB SCH ×2 (17:13→23:36)
[2020-07-18] MEDS: INSULIN REGULAR 100 UNIT in SODIUM CHLORIDE 0.9% 100 ML IV SCH (17:58)
[2020-07-18 18:07] LABS: Glucose,Whole Blood 125 mg/dL (75-99)
[2020-07-18 18:43] LABS: Basophils % (A) 0 %; Eosinophils % (A) 0 %; HGB 9.2 gm/dL (13.0-17.5); Lymphocytes # (A) 0.5 k/uL (1.0-4.8); Lymphocytes % (A) 4 %; MCH 33.1 pg (25.0-35.0); MCHC 34.1 g/dL (31.0-37.0); Mean Platelet Volume 7.8; Monocytes # (A) 1.1 k/uL (0-1.0); Monocytes % (A) 7 %; Neutrophils # (A) 13.1 k/uL (1.3-7.7); Neutrophils % (A) 88 %; RBC 2.78 m/uL (4.30-5.90); RDW 14.3 % (11.5-15.5); WBC 14.8 k/uL (3.8-10.6)
[2020-07-18 18:47] LABS: Platelet Count 77 k/uL (150-450)
[2020-07-18 19:20] LABS: Glucose,Whole Blood 121 mg/dL (75-99)
[2020-07-18 19:33] LABS: Glucose,Whole Blood 118 mg/dL (75-99)
[2020-07-18 19:50] LABS: ABG Base Excess -3.9 mmol/L; ABG HCO3 21 mmol/L (21-25); ABG PCO2 36 mmHg (35-45); ABG PH 7.38 (7.35-7.45); ABG PO2 155 mmHg (83-108); ABG TCO2 22 mmol/L (19-24); Allen Test Performed? Yes
[2020-07-18] MEDS: DEXTROSE 5% IN WATER 100 ML with AMIODARONE 150 MG IV PRN ×4 (20:00→22:18)
[2020-07-18] MEDS: METOPROLOL TARTRATE 12.5 MG TAB PO SCH (20:06)
[2020-07-18] MEDS: SYMBICORT 160-4.5 MCG INHALER INHALATION SCH (20:10)
[2020-07-18] MEDS ORDERED: MUPIROCIN 2% OINT 22 GM TUBE NASAL ONE (20:45)
[2020-07-18 21:09] LABS: Glucose,Whole Blood 154 mg/dL (75-99)
[2020-07-18 21:47] LABS: Glucose,Whole Blood 180 mg/dL (75-99)
[2020-07-18 21:47] LABS: Glucose,Whole Blood 307 mg/dL (75-99)
[2020-07-18 22:11] LABS: Calcium 8.1 mg/dL (8.4-10.2); Magnesium 2.1 mg/dL (1.6-2.3); Potassium 4.5 mmol/L (3.5-5.1)
[2020-07-18 22:12] LABS: Glucose,Whole Blood 145 mg/dL (75-99)
[2020-07-18] MEDS ORDERED: DIGOXIN 250 MCG/ML 2 ML AMP IVP STA (22:33)
[2020-07-18 23:12] LABS: Glucose,Whole Blood 169 mg/dL (75-99)
[2020-07-18] MEDS: HEPARIN SODIUM,PORCINE 5,000 UNIT/ML 1 ML VIAL SQ SCH (23:36)
[2020-07-19 00:46] LABS: Glucose,Whole Blood 146 mg/dL (75-99)
--- NOTE | 2020-07-19 01:24 | CONS ---
CONSULTATION PULMONARY/CRITICAL CARE CONSULTATION: DATE OF CONSULTATION: July 18, 2020. REASON FOR CONSULTATION: ICU ventilator management. This is a 79-year-old gentleman who had a 2-vessel bypass grafting today by Dr. Cantor. Today is postop day #0. He had a PABLO to LAD bypass and SVG to PDA bypass. He is currently up in the ICU. He is currently on Precedex at 0.2 mcg/kg per hour, nitroglycerin at 5 mcg/minute, insulin at 1 unit an hour and saline at 50 mL an hour. He has been on and off the Cleviprex for blood pressure control. He remains on the ventilator. He is on the SIMV mode rate of 14, tidal volume 600, FiO2 of 50%, PEEP of 5 and pressure support of 5. He looks very, very stable. The patient does have a history of CAD, with previous stent placement 2002, hypertension, type 2 diabetes, hypothyroidism, partial thyroidectomy, moderately severe COPD with an FEV1 that is 56% of predicted, and a history of previous tobacco use. Currently, the patient sees Dr. Ferrell as a primary, Dr. Mandujano for Cardiology and my partner Dr. Cui for his pulmonary status. Currently, again, he is very stable. They have already started the weaning protocol. PAST MEDICAL HISTORY: Positive for CAD, angina pectoris, COPD, diabetes, hypertension, chronic renal disease, and hypothyroidism. Other medical history includes Jacobs's esophagus, and deafness. SURGICAL HISTORY: Surgical history includes heart catheterization with stent, partial thyroidectomy, bilateral cataract surgery, lens implants, and Lasix surgery on his eye. SOCIAL HISTORY: Positive for previous heavy tobacco use. Does not smoke currently. He admits to occasional alcohol use. No illicit drug use. FAMILY HISTORY: Positive for mother with breast cancer and a father with COPD and CVA. MEDICATIONS: Home medications are reviewed and include albuterol, aspirin, calcium carbonate/vitamin D3, Advair, levothyroxine, losartan, Spiriva, metoprolol, multivitamins, metformin, vitamin B12, Atrovent nasal spray, Zocor, Imdur. ALLERGIES: Allergies are denied. REVIEW OF SYSTEMS: Cannot be obtained. He is currently sedated. PHYSICAL EXAMINATION: VITAL SIGNS: Current vital signs include temperature 97.8, heart rate 90, respiratory rate 16, blood pressure 151/82, saturations currently are 99%. GENERAL: Appears in no acute distress. HEENT: Examination is grossly unremarkable. There is an orally placed endotracheal tube and NG tube. NECK: Supple. Full range of motion. CARDIOVASCULAR: Examination reveals regular rhythm and rate. Heart rate 90. LUNGS: Reveal diminished breath sounds. A few scattered rhonchi. No wheezes. Breath sounds equal bilaterally. ABDOMEN: Soft. No bowel sounds. EXTREMITIES: Are intact. No cyanosis, clubbing, or edema. SKIN: Without rash. NEUROLOGIC: Examination cannot be assessed. LABS: Labs are reviewed. White count 12.5, hemoglobin 8.7, hematocrit 26.1, platelet count is 74,000. PT 13.2, INR 1.3, PTT 33.8. Blood gases show pO2 of 383, pCO2 of 44, pH 7.35. That was on 100%. Sodium 138, potassium 4.2 chloride 109, CO2 of 26. Anion gap is 3. BUN and creatinine were 26 and 1.2. The rest of his labs look okay. His chest x-ray shows post-surgical changes. There is some atelectasis at the bases. MEDICATIONS: Medications are reviewed. ASSESSMENT: 1. Postoperative day #0, status post 2-vessel bypass grafting. 2. Routine postoperative ventilator management. 3. History of coronary artery disease. 4. History of previous stent placement 2002. 5. Benign essential hypertension. 6. Type 2 diabetes mellitus. 7. Hypothyroidism, status post partial thyroidectomy. 8. Moderately severe chronic obstructive pulmonary disease with an FEV1 that is 56% of predicted. 9. Previous history of tobacco dependence. 10.Chronic kidney disease. PLAN: Currently, the patient is doing well. His cardiac output is 9.3, cardiac index 4.3, CVP 16 and his pulmonary artery pressure is 39/24. The patient is currently on SIMV mode. The FiO2 is 50%. He remains on Precedex 0.2 mcg/kg per hour, nitroglycerin at 5 mcg/minute, insulin at 1 unit/hour, 0.9 at 50 mL an hour. Cleviprex is currently off. We will proceed with rapid extubation. No additional recommendations are made. Prognosis is guarded. We will make sure that he gets back on appropriate breathing medications post extubation. MMODL / IJN: [id number] /
[2020-07-19 01:50] LABS: Glucose,Whole Blood 135 mg/dL (75-99)
[2020-07-19 03:46] LABS: Glucose,Whole Blood 132 mg/dL (75-99)
[2020-07-19] MEDS: HYDROcodone/APAP 5-325MG 1 EACH TAB PO PRN ×4 (03:50→21:04)
--- NOTE | 2020-07-19 04:00 | OP ---
OPERATIVE REPORT DATE OF THE SURGERY: 07/18/2020. SURGEON: Dr. Estee Cantor. ASSISTANTS: Devyn Macias and Kellie Ruiz. PREOPERATIVE DIAGNOSES: 1. Triple-vessel coronary artery disease. 2. Mild left ventricular dysfunction. 3. Hypertension. 4. Hyperlipidemia. 5. Diabetes mellitus. 6. Chronic obstructive pulmonary disease with emphysema. 7. Status post RCA stent in the past. POSTOPERATIVE DIAGNOSES: 1. Triple-vessel coronary artery disease. 2. Mild left ventricular dysfunction. 3. Hypertension. 4. Hyperlipidemia. 5. Diabetes mellitus. 6. Chronic obstructive pulmonary disease with emphysema. 7. Status post RCA stent in the past. 8. Diffuse calcific coronary artery disease. 9. Bullous emphysema. PROCEDURES: 1. Double coronary artery bypass grafting using the left internal mammary artery to the left anterior descending artery, reverse saphenous vein graft from the aorta to the posterior descending artery. 2. Exclusion of the left atrial appendage using a 35 mm AtriClip. 3. Endoscopic harvesting of the right greater saphenous vein. 4. Graft flow measurements using the Appercode system. 5. Intraoperative transesophageal echocardiogram and epiaortic scanning. INDICATION FOR SURGERY: Patient is a 79-year-old gentleman was seen as an outpatient with a diagnosis of basically diffuse coronary artery disease that was calcified. The patient was deemed a candidate for bypass with moderate risk. The STS risk was discussed with him. He understood it and agreed to proceed. The patient has no circumflex system, but rather diagonal branch giving the high lateral wall. DESCRIPTION OF THE PROCEDURE: Patient in supine position. Right internal jugular Hanover-Aura catheter and right radial arterial line were placed. PA pressure was 40/20. Cardiac index was 2.6. Subsequently, patient was brought to the operating room and general endotracheal anesthesia was induced uneventfully. The Villafana catheter was inserted. The chest, abdomen and both lower extremities were prepped and draped using ChloraPrep. Ioban was used to cover the skin. Patient received 2 grams of cefazolin intravenously. Transesophageal echocardiogram confirmed the preoperative finding of mild left ventricular dysfunction with left ventricular hypertrophy and no significant valvular abnormality. Midline sternotomy was performed and BoneSeal was used. The left hemisternum was elevated and the left internal mammary artery was harvested in a semi-skeletonized fashion. The left pleura was intentionally opened in this process and uncovered a diffusely bullous emphysematous left lung. The left pleura was drained with a 19- Indonesian Marcel drain. Patient was given 5000 units of heparin and the mammary artery was clipped distally before its bifurcation and had an excellent pulsatile flow in it and was around 2 mm in diameter. In the same setting, the right greater saphenous vein was harvested endoscopically from groin to above ankle level after administration of 2500 units of heparin. The branches were tied. The leg incision was closed over a drain. The vein appeared to be of reasonable quality around 4 mm in diameter. Mediastinal fat was transected between 2 ties and epiaortic scanning revealed some wall disease, but no protruding atheroma in the ascending aorta. Pericardium was opened in an inverted T-fashion and a pericardial cradle was created. Findings included an elongated aorta that was not dilated and a normal size heart. After systemic heparinization after placement of respective pledgeted pursestring the aortic cannulation with a 21-Indonesian soft flow cannula and venous cannulation with a 3- stage 29-Indonesian cannula was performed. Antegrade as well as retrograde cardioplegia catheters were placed. Cardioplegia bypass was initiated and with the heart warm and empty and beating we looked at the target. The left anterior descending artery was deep intra-epicardial, but eventually was found in its mid to distal aspect in an area what had diffuse disease. However, there was a soft anterior wall to it. We spent quite a bit of time looking at the diagonal artery. The vessels were rock calcified and they did not become soft until the very end part of it and they were essentially non-bypassable. There were no target of the lateral wall besides that. Looking at the inferior wall initially, the PDA was not seen. We could feel the calcium in its proximal aspect. It was found deep intra-epicardial behind the large posterior vein. It was followed and eventually in its mid aspect after calcified wall disease, there was an area of which seemed to be soft wall again very deep intra-epicardial and that will be the site for bypass. Aorta was clamped and during aortic clamping myocardial protection was achieved with initial dose of antegrade cold blood cardioplegia followed by dose of retrograde cold blood cardioplegia. All subsequent doses were given retrograde at 15 to 20 minutes intervals. The first distal anastomosis was between a segment of vein and the posterior descending artery in its mid aspect where it was opened was around 1.5 mm in diameter. I placed a 1 mm shunt to better define the edges and the anastomosis was completed using Prolene 7- 0 in continuous fashion. The anastomosis appeared hemostatic. The vein was cut to length and suspended. The second distal anastomosis was between the left internal mammary artery and the mid to distal aspect of the left anterior descending artery deep intra-epicardial where it was opened was around 1.75 mm in diameter and the anastomosis was completed using Prolene 7-0 in continuous fashion. The mammary veins were affixed to the epicardium on either side with Prolene 6-0. Rewarming was started at this point, as we punched a button of 4 mm from the ascending aorta proximally and performed the single proximal anastomosis of the vein graft to the aorta. Patient was given lidocaine and magnesium. De-airing maneuvers were followed. The aorta was unclamped. It was noted that during bypass and before even going on bypass the potassium was high and all measures were followed and eventually the potassium was 5.7. The patient had abdominal distention and for that reason, we inserted an OG tube next to the THUY. After around 15 minutes of reperfusion, we were able to wean off cardiopulmonary bypass without the need of any inotropic or vasopressor support. Two monopolar atrial pacing wires were affixed to the respective pursestring of the right atrium and atrial pacing at 80 was initiated for a baseline sinus rhythm of around 60. No ventricular pacing wires were placed. FloSeal was placed over all the distal anastomosis and the deep trenches created in the epicardium and myocardium and Fibrillar and that helped in hemostasis. Two 19-Indonesian Marcel drains were left substernally. A groove was made in the left pleural pericardial fat to accommodate the mammary artery medial to this emphysematous lung and away from the posterior sternal table. Pericardial fat was approximated over the aorta and the heart and the grafts. We had performed a graft flow measurement using 4 mm probe for Appercode. The flow into the left internal mammary artery to left anterior descending artery was 35 mL/minute, pulsatility index of 2.1, diastolic filling of 54% showing excellent functioning graft. The flow into the vein graft to the posterior descending artery was 42 mL/minute, pulsatility index of 1.6, diastolic filling of 59% also showing excellent functioning graft. With that, decannulation followed except for the arterial cannula. All pump suckers were stopped as we gave a test dose and full dose protamine. The aortic cannulation was removed. The venous cannulation site was reinforced with a pledgeted 4- 0 Prolene. Hemostasis was acceptable. After ensuring adequate hemostasis and hemodynamic and after correct sponge, instrument, and needle count, the sternum was closed using 5 [id number] Ledbetter cable after interposing Fibrillar between the sternal edges. Thorough irrigation of cefazolin followed. The rest of the closure proceeded in layers. Skin glue was applied. The patient did not receive any blood bank product but received 400 mL of Cell Saver blood. He was transferred to the ICU, atrially paced at 80 on nitroglycerin with a mean arterial pressure of 70, PA pressure 41/24, cardiac index of 2.2. MMODL / IJN: [id number] /
[2020-07-19 04:15] LABS: Basophils % (A) 0 %; Eosinophils % (A) 0 %; Lymphocytes # (A) 0.5 k/uL (1.0-4.8); Lymphocytes % (A) 4 %; MCH 34.7 pg (25.0-35.0); MCV 96.3 fL (80.0-100.0); Mean Platelet Volume 8.3; Monocytes # (A) 0.8 k/uL (0-1.0); Monocytes % (A) 6 %; Neutrophils # (A) 10.5 k/uL (1.3-7.7); Neutrophils % (A) 88 %; RDW 13.6 % (11.5-15.5); WBC 11.9 k/uL (3.8-10.6)
[2020-07-19 04:18] LABS: Platelet Count 72 k/uL (150-450)
[2020-07-19 04:39] LABS: Ionized Calcium 4.9 mg/dL (4.5-5.3)
[2020-07-19 04:50] LABS: Albumin 3.1 g/dL (3.5-5.0); Magnesium 1.9 mg/dL (1.6-2.3); Potassium 4.7 mmol/L (3.5-5.1); Total Bilirubin 1.7 mg/dL (0.2-1.3); Total Protein 4.8 g/dL (6.3-8.2)
[2020-07-19 05:27] LABS: Glucose,Whole Blood 118 mg/dL (75-99)
[2020-07-19] MEDS: ALBUMIN HUMAN 5% 250 ML in EMPTY BAG 1 BAG IVPB PRN (05:48)
[2020-07-19] MEDS: LEVOTHYROXINE 50 MCG TAB PO SCH (05:58)
[2020-07-19] MEDS: MAGNESIUM SULFATE-D5W PMX 1 GM in DEXTROSE/WATER 1 100ML.BAG IVPB SCH ×2 (05:58→07:21)
[2020-07-19 06:26] LABS: Glucose,Whole Blood 122 mg/dL (75-99)
--- NOTE | 2020-07-19 07:34 | XR ---
EXAMINATION TYPE: XR chest 1V portable DATE OF EXAM: 07/19/2020 COMPARISON: Prior chest x-ray 07/18/2020 HISTORY: Postop cardiac surgery TECHNIQUE: Single frontal view of the chest is obtained. FINDINGS: Lucency is present beneath the right hemidiaphragm. A sided chest tube remains in place. E ndotracheal tube and NG tube have been removed. Right jugular central venous catheter is in place, pa tient is post median sternotomy and atrial appendage clipping placement. No evident pneumothorax or s izable effusion. Probable basilar atelectatic changes are noted, the aorta is dense. Heart remains en larged. There are overlying leads. IMPRESSION: Pneumoperitoneum. Interval extubation. Results relayed to the ICU staff to the patient's nurse, message left with Bertha Marin.
[2020-07-19 07:38] LABS: Glucose,Whole Blood 145 mg/dL (75-99)
[2020-07-19] MEDS: TIOTROPIUM 18 MCG/PUFF INHALER INHALATION SCH (08:02)
[2020-07-19] MEDS: SYMBICORT 160-4.5 MCG INHALER INHALATION SCH ×2 (08:02→20:14)
[2020-07-19] MEDS: IPRATROPIUM-ALBUTEROL 3 ML NEB INHALATION SCH ×4 (08:02→20:14)
[2020-07-19 08:09] LABS: Glucose,Whole Blood 182 mg/dL (75-99)
[2020-07-19] MEDS: ATORVASTATIN 40 MG TAB PO SCH (08:28)
[2020-07-19] MEDS: METOPROLOL TARTRATE 12.5 MG TAB PO SCH (08:28)
[2020-07-19] MEDS: IOPAMIDOL CONTRAST (ORAL USE) VIAL PO PRN ×2 (08:28→10:00)
[2020-07-19] MEDS: PANTOPRAZOLE 40 MG/10 ML VIAL IVP SCH (08:29)
[2020-07-19] MEDS: AMIODARONE 200 MG TAB PO SCH ×2 (08:30→21:03)
[2020-07-19] MEDS: ASPIRIN 325 MG TAB PO SCH (08:38)
[2020-07-19] MEDS ORDERED: METOPROLOL TARTRATE 12.5 MG TAB PO SCH (09:00)
[2020-07-19] MEDS ORDERED: bisacodyL 10 MG SUPP RECTAL PRN (09:00)
[2020-07-19 09:21] LABS: Glucose,Whole Blood 185 mg/dL (75-99)
--- NOTE | 2020-07-19 09:25 | P.CRDCN ---
History of Present Illness Consult date: 07/19/20 Reason for Consult (text): Status post coronary artery bypass grafting surgery History of present illness: This is a pleasant 79-year-old gentleman with documented history of nicotine dependence, diabetes, hypertension, hyperlipidemia, family history of premature coronary artery disease, peripheral vascular disease, coronary artery disease with prior RCA stenting who underwent a cardiac catheterization by Dr. Mandujano on June 21. Patient was found to have heavily calcified coronary arteries with severe triple-vessel coronary artery disease. Patient underwent double coronary artery bypass grafting surgery using a PABLO to the LAD, reverse saphenous vein graft from the aorta to the posterior descending artery yesterday. The patient was seen and examined this morning in the intensive care unit, he is extubated sitting up in the chair at bedside. Denies any chest discomfort but states that he does have some mild discomfort at the site of the chest tubes, he he has a mediastinotomy and a left pleural chest tube in place. He denies any abdominal discomfort this morning. The chest x-ray this morning did show evidence of a pneumoperitoneum. Patient is scheduled today to undergo a CAT scan of the abdomen. Blood pressure 106/50, heart rate in the 70s, respirations 22. He is afebrile, cardiac index 3.1. Remaining in a normal sinus rhythm this morning, on amiodarone. 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, pneumonia in November, some decreased kidney function History of Any Multi-Drug Resistant Organisms: None Reported Past Surgical History: Heart Catheterization, Heart Catheterization With Stent Additional Past Surgical History / Comment(s): 1/2 thyroid removed, nessa cataract removal & lens implanted, lasik on nessa eyes, EGD Past Anesthesia/Blood Transfusion Reactions: No Reported Reaction Date of Last Stent Placement:: 2001 Past Psychological History: No Psychological Hx Reported Smoking Status: Former smoker Past Alcohol Use History: Occasional Additional Past Alcohol Use History / Comment(s): Drinks 2-3 glasses of wine approximately once a week-not lately, quit smoking 20 years ago Past Drug Use History: None Reported - Past Family History Mother Family Medical History: Cancer Additional Family Medical History / Comment(s): sx: appendix; CA: breast ( from) Father Family Medical History: COPD, CVA/TIA Additional Family Medical History / Comment(s): CVA in 1978 ( from), sinus sx Medications and Allergies Home Medications Medication Instructions Recorded Confirmed Type Albuterol Inhaler (Mhu) [Ventolin 2 puff INHALATION RT-QID PRN 12/11/15 07/14/20 History Hfa Inhaler] Aspirin [Adult Low Dose Aspirin EC] 81 mg PO DAILY 12/11/15 07/14/20 History Calcium Carbonate/Vitamin D3 1 tab PO W/LUNCH 12/11/15 07/18/20 History [Calcium 600 + Vit D 400 Tablet] Fluticasone/Salmeterol [Advair 1 puff INHALATION RT-BID 12/11/15 07/14/20 History 500-50 Diskus] Levothyroxine Sodium [Synthroid] 50 mcg PO DAILY 12/11/15 07/18/20 History Losartan Potassium [Cozaar] 100 mg PO DAILY 12/11/15 07/18/20 History Metoprolol Succinate (ER) [Toprol 100 mg PO DAILY 12/11/15 07/18/20 History Xl] Multivitamin [Men's Multi-Vitamin] 1 tab PO W/LUNCH 12/11/15 07/18/20 History Tiotropium 18 Mcg/Puff [Spiriva] 1 cap INHALATION RT-DAILY 12/11/15 07/14/20 History metFORMIN HCL [Glucophage] 500 mg PO PC-SUPPER 12/11/15 07/18/20 History Ipratropium [place] 0.06%Nasal 1 spray EA NOSTRIL QID PRN 12/04/19 07/18/20 History [Atrovent Nasal 0.06%] Isosorbide Mononitrate [Isosorbide 30 mg PO DAILY 06/20/20 07/18/20 History Mononitrate ER] Atorvastatin [Lipitor] 40 mg PO HS 07/14/20 07/18/20 History Fluticasone Nasal [place] [Flonase 2 spr EA NOSTRIL DAILY PRN 07/14/20 07/18/20 History Nasal [place]] Mupirocin 2% Oint [Bactroban 2% 1 applic NASAL BID 07/14/20 07/18/20 History Oint] Nitroglycerin Sl Tabs [Nitrostat] 0.4 mg SUBLINGUAL Q5M PRN 07/14/20 07/14/20 History Allergies Allergy/AdvReac Type Severity Reaction Status Date / Time No Known Allergies Allergy Verified 07/14/20 12:50 Physical Exam Vitals: Vital Signs Temp Pulse Resp BP Pulse Ox 07/19/20 08:20 76 07/19/20 08:02 75 07/19/20 07:00 77 22 98 07/19/20 06:30 75 20 98 07/19/20 06:00 77 16 120/67 96 07/19/20 05:30 98 95 07/19/20 05:00 80 16 97 07/19/20 04:30 69 97 07/19/20 04:00 98.2 F 71 19 112/56 98 07/19/20 03:30 68 19 98 07/19/20 03:00 70 18 98 07/19/20 02:30 67 20 98 07/19/20 02:00 76 20 102/56 98 07/19/20 01:30 69 19 99 07/19/20 01:00 68 19 98 07/19/20 00:30 77 21 102/56 98 07/19/20 00:00 97.9 F 71 19 99 07/18/20 23:30 81 21 99 07/18/20 23:18 16 07/18/20 23:00 75 20 99 07/18/20 22:45 74 20 99 07/18/20 22:30 107 H 23 99 07/18/20 22:15 141 H 22 104/71 99 07/18/20 22:14 100 07/18/20 22:00 107 H 16 98 07/18/20 21:45 118 H 22 100 07/18/20 21:30 134 H 24 90/57 100 07/18/20 21:15 112 H 16 100 07/18/20 21:00 121 H 18 100 07/18/20 20:50 100 07/18/20 20:45 110 H 18 100 07/18/20 20:30 125 H 18 100 07/18/20 20:15 115 H 17 100 07/18/20 20:00 122 H 20 100 07/18/20 19:45 97.7 F 91 12 100 07/18/20 19:30 89 18 100 07/18/20 19:15 86 25 H 100 07/18/20 19:00 87 24 100 07/18/20 18:45 86 24 100 07/18/20 18:30 91 21 100 07/18/20 18:15 94 21 100 07/18/20 18:00 93 21 99 07/18/20 17:45 99 19 99 07/18/20 17:30 92 22 99 07/18/20 17:15 87 23 99 07/18/20 17:00 85 22 98 07/18/20 16:45 83 22 98 07/18/20 16:30 81 19 99 07/18/20 16:15 80 16 99 07/18/20 16:00 80 13 100 07/18/20 15:45 80 13 98 Intake and Output 07/18/20 07/19/20 07/19/20 22:59 06:59 14:59 Intake Total 1105.858 3305.723 212.713 Output Total 1178 800 125 Balance 8.468 1194.723 87.713 Intake: IV 1142 893 208 ACETAMINOPHEN IV (For NPO 100 100 ) 1,000 mg In Empty Bag 1 bag @ 400 mls/hr IVPB Q6HR [facility] Rx#:[id number] Albumin Human 5% 250 ml @ 250 0 mls/hr IVPB .STK-MED ONE Rx#:[id number] Amiodarone 360 mg In 99 191 50 Dextrose 5% in Water 200 ml @ 1 MG/MIN 33.333 mls/ hr IV .Q6H PRN Rx#: [id number] Sodium Chloride 0.9% 1, 400 400 100 000 ml @ 50 mls/hr IV . Q20H [facility] Rx#:[id number] cardiac output 180 80 40 ceFAZolin 2 gm In Sodium 50 50 Chloride 0.9% 50 ml @ 100 mls/hr IVPB Q8HR [facility] Rx# :[id number] pressure bag 63 72 18 Intake, IV Titration 44.468 21.723 4.713 Amount Clevidipine Butyrate 25 2.5 mg In Empty Bag 1 bag @ 1 MG/HR 2 mls/hr IV .Q24H [facility] Rx#:[id number] Dexmedetomidine/0.9% NaCl 22.760 (Pmx) 400 mcg In Empty Bag 1 bag @ Titrate IV . Q0M [facility] Rx#:[id number] Insulin Regular 100 unit 5.033 21.723 4.713 In Sodium Chloride 0.9% 100 ml @ Per Protocol IV .Q0M [facility] Rx#:[id number] propofoL 1,000 mg In 14.175 Empty Bag 1 bag @ Titrate IV .Q0M [facility] Rx#: [id number] Oral 1080 Output: Chest Tube Drainage 524 230 40 left pleural chest tube 320 150 20 mediastinal chest tube 204 80 20 Urine 654 570 85 Other: Voiding Method Indwelling Catheter Indwelling Catheter Indwelling Catheter Weight 99.2 kg ABP, PAP, CO, CI - Last 8 Hours Arterial Blood Pressure 106/51 Arterial Blood Pressure 106/47 Arterial Blood Pressure 93/41 Arterial Blood Pressure 110/74 Arterial Blood Pressure 116/57 Arterial Blood Pressure 109/54 Arterial Blood Pressure 114/58 Arterial Blood Pressure 108/55 Arterial Blood Pressure 109/56 Arterial Blood Pressure 103/56 Arterial Blood Pressure 111/59 Arterial Blood Pressure 109/56 Pulmonary Artery Pressure 35/11 Pulmonary Artery Pressure 34/13 Pulmonary Artery Pressure 26/7 Pulmonary Artery Pressure 39/23 Pulmonary Artery Pressure 40/21 Pulmonary Artery Pressure 41/24 Pulmonary Artery Pressure 39/22 Pulmonary Artery Pressure 42/22 Pulmonary Artery Pressure 40/23 Pulmonary Artery Pressure 45/24 Pulmonary Artery Pressure 43/22 Cardiac Output 5.1 Cardiac Output 5.1 Cardiac Output 5 Cardiac Index 2.4 Cardiac Index 2.4 Cardiac Index 2.3 PHYSICAL EXAMINATION: GENERAL: 79-year-old gentleman in no acute distress at the time of our examination HEENT: Head is atraumatic, normocephalic. Pupils equal, round. Sclera anicteric. Conjunctiva are clear. Mucous membranes of the mouth are moist. Neck is supple. There is no elevated jugular venous pressure. No carotid bruit is heard. Internal jugular [place]Aura catheter in place HEART EXAMINATION: Heart S1, S2 normal. No murmur or gallop heard. Pacemaker wires in place. CHEST EXAMINATION: Lungs are clear with diminished air entry to the bases, mediastinal and left pleural chest tube in place. ABDOMEN: Soft, nontender. Bowel sounds are heard. No organomegaly noted. EXTREMITIES: 2+ peripheral pulses with no evidence of peripheral edema and no calf tenderness noted. NEUROLOGIC patient is awake, alert and oriented 3 . Results 07/19/20 03:45 07/19/20 03:45 Cardiac Enzymes 07/18/20 07/19/20 Range/Units 15:49 03:45 AST 40 68 H (17-59) U/L Coagulation 07/18/20 Range/Units 15:49 PT 13.2 H (9.0-12.0) sec APTT 33.8 H (22.0-30.0) sec CBC 07/18/20 07/18/20 07/19/20 Range/Units 15:49 18:30 03:45 WBC 12.5 H 14.8 H 11.9 H (3.8-10.6) k/uL RBC 2.66 L 2.78 L 2.60 L (4.30-5.90) m/uL Hgb 8.7 L D 9.2 L 9.0 L (13.0-17.5) gm/dL Hct 26.1 L 27.0 L 25.0 L (39.0-53.0) % Plt Count 74 L D 77 L 72 L (150-450) k/uL Comprehensive Metabolic Panel 07/18/20 07/18/20 07/19/20 Range/Units 15:49 21:37 03:45 Sodium 138 134 L 133 L (137-145) mmol/L Potassium 4.2 4.5 4.7 (3.5-5.1) mmol/L Chloride 109 H 106 106 (98-107) mmol/L Carbon Dioxide 26 22 23 (22-30) mmol/L BUN 26 H 26 H 25 H (9-20) mg/dL Creatinine 1.20 1.21 1.18 (0.66-1.25) mg/dL Glucose 98 174 H 128 H (74-99) mg/dL Calcium 7.7 L 8.1 L 8.0 L (8.4-10.2) mg/dL AST 40 68 H (17-59) U/L ALT 21 23 (4-49) U/L Alkaline Phosphatase <20 L 21 L (38-126) U/L Total Protein 4.4 L 4.8 L (6.3-8.2) g/dL Albumin 2.8 L 3.1 L (3.5-5.0) g/dL Current Medications Generic Name Dose Route Start Last Admin Trade Name Freq PRN Reason Stop Dose Admin Hydrocodone Bitart/Acetaminophen 2 each 07/19/20 03:06 Hydrocodone/Apap 5-325mg 1 Each Tab PO Q4HR PRN Severe Pain Hydrocodone Bitart/Acetaminophen 1 each 07/19/20 03:06 07/19/20 07:18 Hydrocodone/Apap 5-325mg 1 Each Tab PO 1 each Q4HR PRN Administration Moderate Pain Albuterol/Ipratropium 3 ml 07/18/20 15:16 Ipratropium-Albuterol 3 Ml Neb INHALATION RT-Q2H PRN Shortness Of Breath Or Wheezing Albuterol/Ipratropium 3 ml 07/18/20 21:08 07/19/20 08:02 Ipratropium-Albuterol 3 Ml Neb INHALATION 3 ml RT-QID WADE Administration Amiodarone HCl 400 mg 07/19/20 09:00 07/19/20 08:30 Amiodarone 200 Mg Tab PO 400 mg BID WADE Administration Aspirin 325 mg 07/19/20 09:00 07/19/20 08:38 Aspirin 325 Mg Tab PO 325 mg DAILY WADE Administration Atorvastatin Calcium 40 mg 07/19/20 09:00 07/19/20 08:28 Atorvastatin 40 Mg Tab PO 40 mg DAILY WADE Administration Benzocaine/Menthol 1 each 07/18/20 15:16 Benzocaine/Menthol Lozeng 1 Each Lozenge MUCOUS MEM Q2H PRN Sore Throat Bisacodyl 10 mg 07/19/20 09:00 Bisacodyl 10 Mg Supp RECTAL DAILY PRN Constipation Budesonide/Formoterol Fumarate 2 puff 07/18/20 20:00 07/19/20 08:02 Symbicort 160-4.5 Mcg Inhaler INHALATION 2 puff RT-BID WADE Administration Clopidogrel Bisulfate 75 mg 07/19/20 09:00 Clopidogrel 75 Mg Tab PO DAILY [facility] Heparin Sodium (Porcine) 5,000 unit 07/19/20 00:00 07/18/20 23:36 Heparin Sodium,Porcine 5,000 Unit/Ml 1 Ml Vial SQ 5,000 unit Q8HR WADE Administration Hydralazine HCl 10 mg 07/18/20 15:16 Hydralazine Hcl 20 Mg/Ml 1 Ml Vial IVP Q1H PRN Blood Pressure - High Clevidipine 25 mg/ IV Solution 50 mls @ 2 mls/hr 07/18/20 15:16 07/18/20 17:45 IV 0 mg/hr .Q24H WADE 0 mls/hr Titration Protocol 1 MG/HR Amiodarone HCl 150 mg/ 103 mls @ 618 mls/hr 07/18/20 15:16 07/18/20 22:18 Dextrose/Water IV 618 mls/hr .Q10M PRN Administration A.FIB/FLUTTER Protocol Amiodarone HCl 300 mg/ 250 mls @ 25 mls/hr 07/18/20 15:16 07/19/20 01:53 Dextrose/Water IV 0.5 mg/min .Q10H PRN 25 mls/hr A.FIB/FLUTTER Administration Protocol 0.5 MG/MIN Amiodarone HCl 360 mg/ 200 mls @ 33.333 mls/hr 07/18/20 15:16 07/18/20 20:08 Dextrose/Water IV 1 mg/min .Q6H PRN 33.333 mls/hr A.FIB/FLUTTER Administration Protocol 1 MG/MIN Albumin Human 250 ml/ IV 250 mls @ 250 mls/hr 07/18/20 15:16 07/19/20 05:48 Solution IVPB 07/20/20 15:17 250 mls/hr Q1HR PRN Administration For Volume Dexmedetomidine HCl 400 mcg/ 100 mls @ 0 mls/hr 07/18/20 15:16 07/18/20 21:00 IV Solution IV 07/19/20 15:17 0 mcg/kg/hr .Q0M WADE 0 mls/hr Titration Protocol Titrate Calcium Gluconate 2 gm/ Sodium 120 mls @ 100 mls/hr 07/18/20 15:16 Chloride IVPB 08/17/20 15:17 ONCE PRN Ionized Calcium less than 4.4 Insulin Human Regular 100 unit 101 mls @ 0 mls/hr 07/18/20 15:16 07/19/20 07:59 / Sodium Chloride IV 4.5 units/hr .Q0M WADE 4.545 mls/hr Titration Protocol Per Protocol Sodium Chloride 1,000 mls @ 50 mls/hr 07/18/20 15:16 07/18/20 17:12 Saline 0.9% IV 50 mls/hr .Q20H WADE Administration Iopamidol 30 ml 07/19/20 07:51 07/19/20 08:28 Iopamidol Contrast (Oral Use) Vial PO 07/20/20 07:51 30 ml Q60M PRN Administration CT Scan Levothyroxine Sodium 50 mcg 07/19/20 06:30 07/19/20 05:58 Levothyroxine 50 Mcg Tab PO 50 mcg DAILY@0630 WADE Administration Magnesium Hydroxide 2,400 mg 07/19/20 09:00 Magnesium Hydroxide 2,400 Mg/10 Ml Cup PO BID PRN Constipation Metoclopramide HCl 10 mg 07/18/20 15:16 Metoclopramide 5 Mg/Ml 2 Ml Vial IVP Q4H PRN Nausea And Vomiting Metoprolol Tartrate 25 mg 07/19/20 09:00 Metoprolol Tartrate 25 Mg Tab PO BID WADE Miscellaneous Information 1 each 07/18/20 15:16 Potassium Replacement Protocol 1 Each Misc MISCELLANE DAILY PRN Per Protocol Protocol Miscellaneous Information 1 each 07/18/20 15:16 Magnesium Replacement Protocol 1 Each Misc MISCELLANE DAILY PRN Per Protocol Protocol Miscellaneous Information 1 each 07/18/20 15:16 Phosphorus Replacement Protoco 1 Each Misc MISCELLANE DAILY PRN Per Protocol Protocol Ondansetron HCl 4 mg 07/18/20 15:16 Ondansetron 4 Mg/2 Ml Vial IVP Q6HR PRN Nausea And Vomiting Pantoprazole Sodium 40 mg 07/19/20 09:00 07/19/20 08:29 Pantoprazole 40 Mg/10 Ml Vial IVP 40 mg DAILY WADE Administration Senna/Docusate Sodium 2 each 07/19/20 21:00 Sennosides-Docusate Sodium 1 Each Tab PO HS WADE Sodium Chloride 10 ml 07/18/20 21:00 07/19/20 08:31 Sodium Chloride 0.9% Flush 10 Ml Syringe IV 10 ml BID WADE Administration Tiotropium [place] 1 puff 07/19/20 08:00 07/19/20 08:02 Tiotropium 18 Mcg/Puff Inhaler INHALATION 1 puff RT-DAILY WADE Administration Intake and Output 07/18/20 07/19/20 07/19/20 22:59 06:59 14:59 Intake Total 8885.650 1804.723 212.713 Output Total 1178 800 125 Balance 8.468 1194.723 87.713 Intake: IV 1142 893 208 ACETAMINOPHEN IV (For NPO 100 100 ) 1,000 mg In Empty Bag 1 bag @ 400 mls/hr IVPB Q6HR [facility] Rx#:[id number] Albumin Human 5% 250 ml @ 250 0 mls/hr IVPB .STK-MED ONE Rx#:[id number] Amiodarone 360 mg In 99 191 50 Dextrose 5% in Water 200 ml @ 1 MG/MIN 33.333 mls/ hr IV .Q6H PRN Rx#: [id number] Sodium Chloride 0.9% 1, 400 400 100 000 ml @ 50 mls/hr IV . Q20H [facility] Rx#:[id number] cardiac output 180 80 40 ceFAZolin 2 gm In Sodium 50 50 Chloride 0.9% 50 ml @ 100 mls/hr IVPB Q8HR WADE Rx# :[id number] pressure bag 63 72 18 Intake, IV Titration 44.468 21.723 4.713 Amount Clevidipine Butyrate 25 2.5 mg In Empty Bag 1 bag @ 1 MG/HR 2 mls/hr IV .Q24H [facility] Rx#:[id number] Dexmedetomidine/0.9% NaCl 22.760 (Pmx) 400 mcg In Empty Bag 1 bag @ Titrate IV . Q0M [facility] Rx#:[id number] Insulin Regular 100 unit 5.033 21.723 4.713 In Sodium Chloride 0.9% 100 ml @ Per Protocol IV .Q0M WADE Rx#:[id number] propofoL 1,000 mg In 14.175 Empty Bag 1 bag @ Titrate IV .Q0M WADE Rx#: [id number] Oral 1080 Output: Chest Tube Drainage 524 230 40 left pleural chest tube 320 150 20 mediastinal chest tube 204 80 20 Urine 654 570 85 Other: Voiding Method Indwelling Catheter Indwelling Catheter Indwelling Catheter Weight 99.2 kg 07/19/20 03:45 07/19/20 03:45 EKG Interpretations (text) EKG shows a normal sinus rhythm Assessment and Plan Plan: Assessment and plan #1 status post two-vessel bypass grafting, postoperative day #1 #2 known history of coronary artery disease with prior RCA stenting in 2002 #3 hyperlipidemia #4 hypertension #5 diabetes #6 hypothyroidism #7 chronic kidney disease #8 history of nicotine dependence #9 moderately severe chronic obstructive pulmonary disease Plan Thee is suggestion of a pneumoperitoneum on chest x-ray, patient is scheduled for a CAT scan today. He's also been encouraged regarding the use of his incentive spirometry. [place]-Aura catheter to be removed today. Medications of been reviewed. Continue to monitor daily labs, monitor and chest x-rays. DNP note has been reviewed, I agree with a documented findings and plan of care. Patient was seen and examined.
[2020-07-19] MEDS: METOPROLOL TARTRATE 25 MG TAB PO SCH ×2 (09:27→21:02)
--- NOTE | 2020-07-19 09:58 | P.PN ---
Subjective Progress Note Date: 07/19/20 Principal diagnosis: Symptomatic triple-vessel coronary artery disease, mild left ventricular dysfunction. Past medical history significant for hypertension, hyperlipidemia, chronic obstructive pulmonary disease with preoperative FEV1 of 53% of predicted value, coronary artery disease with previous stenting to his right coronary artery in 2002, hypothyroid status post partial thyroidectomy, previous tobacco dependence quit smoking 20 years ago, type 2 diabetes mellitus with a preoperative hemoglobin A1c of 5.2%, and chronic kidney disease stage III with a baseline creatinine of 1.4-1.5. POD #1 double coronary artery bypass grafting using the left internal mammary artery to left anterior descending coronary artery, a reverse greater saphenous vein graft from the aorta to the posterior descending coronary artery. Exclusion of the left atrial appendage using a 35 mm Atriclip, endoscopic harvesting of the right greater saphenous vein, graft flow measurement using the Zoopim system, intraoperative transesophageal echocardiogram and epi-aortic scanning. Postoperative acute blood loss anemia, an expected outcome from hemodilution and cardiopulmonary bypass. Postoperative paroxysmal atrial fibrillation, unexpected. The patient was seen in follow-up today at his bedside in the intensive care unit. The patient is currently sitting up to the bedside chair, is awake, alert and oriented 3. Denies any complaints of shortness of breath although is complaining of some surgical type pain to his chest tube insertion sites and is complaining of some right upper abdominal cramping. Bedside telemetry showing normal sinus rhythm 78 BPM, his night nurse reports that the patient had some episodes of atrial fibrillation which was treated with some amiodarone per protocol. Currently he is on amiodarone drip at 0.5 mg/m. He was successfully extubated at 2050 p.m. and is currently on 2 L nasal cannula with oxygen saturations 98%. He is achieving 1000 mL on his incentive spirometry. Mediastinal and left pleural chest tubes remain in place to low continuous wall suction -20 cm H2O. No air leak is present. Draining thin serosanguineous drainage. Remains hemodynamically stable, right IJ Cordis with Charlotte-Aura catheter is in place with current hemodynamics showing a cardiac output of 5.1, cardiac index 2.4, PA pressures 34/15 and CVP 8 mmHg. Objective - Vital Signs Vital signs: Vital Signs Temp 98.2 F 07/19/20 04:00 Pulse 76 07/19/20 08:20 Resp 22 07/19/20 07:00 BP 120/67 07/19/20 06:00 Pulse Ox 98 07/19/20 07:00 Intake & Output 07/18/20 07/19/20 07/19/20 18:59 06:59 18:59 Intake Total 090.277 2820.516 219.303 Output Total 3503 1125 125 Balance -2953.325 1562.516 94.303 Weight 99.2 kg Intake: IV 533 1558 208 ACETAMINOPHEN IV (For NPO 100 100 ) 1,000 mg In Empty Bag 1 bag @ 400 mls/hr IVPB Q6HR [facility] Rx#:[id number] Albumin Human 5% 250 ml @ 250 0 mls/hr IVPB .[facility] Rx#:[id number] Amiodarone 360 mg In 290 50 Dextrose 5% in Water 200 ml @ 1 MG/MIN 33.333 mls/ hr IV .Q6H [facility] Rx#: [id number] Sodium Chloride 0.9% 1, 200 600 100 000 ml @ 50 mls/hr IV . Q20H [facility] Rx#:[id number] cardiac output 100 160 40 ceFAZolin 2 gm In Sodium 50 50 Chloride 0.9% 50 ml @ 100 mls/hr IVPB Q8HR [facility] Rx# :[id number] pressure bag 27 108 18 Intake, IV Titration 16.675 49.516 11.303 Amount Clevidipine Butyrate 25 2.5 mg In Empty Bag 1 bag @ 1 MG/HR 2 mls/hr IV .Q24H [facility] Rx#:[id number] Dexmedetomidine/0.9% NaCl 22.760 (Pmx) 400 mcg In Empty Bag 1 bag @ Titrate IV . Q0M [facility] Rx#:[id number] Insulin Regular 100 unit 26.756 11.303 In Sodium Chloride 0.9% 100 ml @ Per Protocol IV .Q0M [facility] Rx#:[id number] propofoL 1,000 mg In 14.175 Empty Bag 1 bag @ Titrate IV .Q0M [facility] Rx#: [id number] Oral 1080 Output: Chest Tube Drainage 434 320 40 left pleural chest tube 270 200 20 mediastinal chest tube 164 120 20 Urine 1069 805 85 Estimated Blood Loss 1999 Other: Voiding Method Indwelling Catheter Indwelling Catheter Indwelling Catheter ABP, PAP, CO, CI - Last Documented Arterial Blood Pressure 106/51 Pulmonary Artery Pressure 35/11 Cardiac Output 5.1 Cardiac Index 2.4 - Constitutional General appearance: Present: cooperative, no acute distress, obese - EENT Eyes: Present: normal appearance. Absent: scleral icterus ENT: Present: hearing grossly normal - Neck Details: Neck is supple, no JVD, right IJ Cordis with Charlotte-Aura catheter in place. - Respiratory Details: Lungs sounds essentially clear throughout, diminished to his bilateral bases. No wheezes, rhonchi or crackles. Respirations are symmetrical and nonlabored. Oxygen saturation are 98% on 2 L nasal cannula and he is achieving 1000 mL on his incentive spirometry. Mediastinal and left pleural chest tubes remain in place to low continuous wall suction -20 cm H2O. No air leak is present. Mediastinal chest tubes with 80 mL of thin serosanguineous drainage out in the last 8 hours and 280 mL output since surgery. Left pleural chest tube with 150 mL of drainage out in the last 8 hours and 460 mL output since surgery. - Cardiovascular Details: Regular rhythm and rate. S1 and S2 present, negative for S3, gallop or murmur. Sternum is stable. Bedside telemetry showing normal sinus rhythm heart rate 78. Atrial epicardial pacemaker wires in place and connected to a backup bedside p acemaker generator on an AAI 50. Heart hugger is in place and he is demonstrating appropriate use. Knee-high ALPHONSO hose and sequential compression devices in place to his bilateral lower extremities. Right IJ Cordis with Charlotte- Aura catheter in place with current hemodynamics showing a cardiac output 5.1, cardiac index 2.4, PA pressures 34/15 and CVP 8 mmHg. - Gastrointestinal Gastrointestinal Comment(s): Abdomen is soft, nontender and nondistended. Hypoactive bowel sounds present in all 4 abdominal quadrants. No guarding or rigidity. No organomegaly appreciated. Tolerating clear liquids. - Genitourinary Genitourinary Comment(s): Villafana catheter for accurate I&O. Draining clear yellow urine. 570 mL output in the last 8 hours. - Integumentary Integumentary Comment(s): Skin is warm and dry. No clubbing or cyanosis is present. Midline sternal incision is clean, dry and approximated. No drainage or redness is present. Gauze dressing is clean, dry and intact. Right lower extremity EVH sites are clean, dry and approximated. No drainage or redness is present. Right lower extremity NAIN drain in place with scant serosanguineous drainage. - Neurologic Neurologic: Present: CNII-XII intact - Musculoskeletal Musculoskeletal: Present: gait normal, generalized weakness, strength equal bilaterally - Psychiatric Psychiatric: Present: A&O x's 3, appropriate affect, intact judgment & insight - Allied health notes Allied health notes reviewed: nursing - Labs CBC & Chem 7: 07/19/20 03:45 07/19/20 03:45 Labs: Abnormal Lab Results - Last 24 Hours (Table) 07/12/20 07/18/20 07/18/20 Range/Units 10:00 08:50 11:39 WBC (3.8-10.6) k/uL RBC (4.30-5.90) m/uL Hgb (13.0-17.5) gm/dL Hct (39.0-53.0) % Plt Count (150-450) k/uL Neutrophils # (1.3-7.7) k/uL Lymphocytes # (1.0-4.8) k/uL Monocytes # (0-1.0) k/uL PT (9.0-12.0) sec INR (<1.2) APTT (22.0-30.0) sec ABG pH 7.34 L 7.14 L* (7.35-7.45) ABG pCO2 68 H (35-45) mmHg ABG pO2 375 H 197 H (83-108) mmHg ABG HCO3 (21-25) mmol/L ABG Total CO2 25 H (19-24) mmol/L ABG O2 Saturation 100.0 H 99.2 H (94-97) % ABG Hematocrit (34.0-46.0) % ABG Sodium (135-146) mmol/L ABG Potassium 4.7 H 5.7 H (3.4-4.5) mmol/L ABG Ionized Calcium (4.5-5.3) mg/dL ABG Glucose 105 H 220 H (75-99) mg/dL ABG Lactic Acid (0.5-1.6) mmol/L Hemoglobin 11.7 L 11.9 L (13.0-17.5) gm/dL Sodium (137-145) mmol/L Chloride (98-107) mmol/L BUN (9-20) mg/dL Glucose (74-99) mg/dL POC Glucose (mg/dL) (75-99) mg/dL Calcium (8.4-10.2) mg/dL Magnesium (1.6-2.3) mg/dL Total Bilirubin (0.2-1.3) mg/dL AST (17-59) U/L Alkaline Phosphatase (38-126) U/L Total Protein (6.3-8.2) g/dL Albumin (3.5-5.0) g/dL Arterial Blood Potassium 4.7 H 5.7 H (3.4-4.5) mmol/L Arterial Blood Glucose 105 H 220 H (75-99) mg/dL Crossmatch See Detail 07/18/20 07/18/20 07/18/20 Range/Units 11:48 12:10 12:38 WBC (3.8-10.6) k/uL RBC (4.30-5.90) m/uL Hgb (13.0-17.5) gm/dL Hct (39.0-53.0) % Plt Count (150-450) k/uL Neutrophils # (1.3-7.7) k/uL Lymphocytes # (1.0-4.8) k/uL Monocytes # (0-1.0) k/uL PT (9.0-12.0) sec INR (<1.2) APTT (22.0-30.0) sec ABG pH 7.17 L* 7.26 L (7.35-7.45) ABG pCO2 61 H (35-45) mmHg ABG pO2 171 H >420 H 243 H (83-108) mmHg ABG HCO3 20 L (21-25) mmol/L ABG Total CO2 26 H (19-24) mmol/L ABG O2 Saturation 99.1 H 100.0 H 100.0 H (94-97) % ABG Hematocrit 24 L 22 L (34.0-46.0) % ABG Sodium 131 L 131 L (135-146) mmol/L ABG Potassium 6.1 H 5.9 H 6.7 H* (3.4-4.5) mmol/L ABG Ionized Calcium 4.3 L 4.3 L (4.5-5.3) mg/dL ABG Glucose 221 H 221 H 262 H (75-99) mg/dL ABG Lactic Acid (0.5-1.6) mmol/L Hemoglobin 11.4 L 7.8 L 7.1 L (13.0-17.5) gm/dL Sodium (137-145) mmol/L Chloride (98-107) mmol/L BUN (9-20) mg/dL Glucose (74-99) mg/dL POC Glucose (mg/dL) (75-99) mg/dL Calcium (8.4-10.2) mg/dL Magnesium (1.6-2.3) mg/dL Total Bilirubin (0.2-1.3) mg/dL AST (17-59) U/L Alkaline Phosphatase (38-126) U/L Total Protein (6.3-8.2) g/dL Albumin (3.5-5.0) g/dL Arterial Blood Potassium 6.1 H 5.9 H 6.7 H* (3.4-4.5) mmol/L Arterial Blood Glucose 221 H 221 H 262 H (75-99) mg/dL Crossmatch 07/18/20 07/18/20 07/18/20 Range/Units 13:06 13:42 14:37 WBC (3.8-10.6) k/uL RBC (4.30-5.90) m/uL Hgb (13.0-17.5) gm/dL Hct (39.0-53.0) % Plt Count (150-450) k/uL Neutrophils # (1.3-7.7) k/uL Lymphocytes # (1.0-4.8) k/uL Monocytes # (0-1.0) k/uL PT (9.0-12.0) sec INR (<1.2) APTT (22.0-30.0) sec ABG pH 7.30 L (7.35-7.45) ABG pCO2 53 H (35-45) mmHg ABG pO2 333 H >420 H 411 H (83-108) mmHg ABG HCO3 26 H (21-25) mmol/L ABG Total CO2 27 H (19-24) mmol/L ABG O2 Saturation 100.0 H 100.0 H 100.0 H (94-97) % ABG Hematocrit 21 L 21 L 25 L (34.0-46.0) % ABG Sodium 133 L 134 L (135-146) mmol/L ABG Potassium 5.8 H 5.6 H (3.4-4.5) mmol/L ABG Ionized Calcium 4.2 L 4.2 L (4.5-5.3) mg/dL ABG Glucose 233 H 211 H 153 H (75-99) mg/dL ABG Lactic Acid 1.7 H 1.8 H (0.5-1.6) mmol/L Hemoglobin 6.7 L* 6.7 L* 8.2 L (13.0-17.5) gm/dL Sodium (137-145) mmol/L Chloride (98-107) mmol/L BUN (9-20) mg/dL Glucose (74-99) mg/dL POC Glucose (mg/dL) (75-99) mg/dL Calcium (8.4-10.2) mg/dL Magnesium (1.6-2.3) mg/dL Total Bilirubin (0.2-1.3) mg/dL AST (17-59) U/L Alkaline Phosphatase (38-126) U/L Total Protein (6.3-8.2) g/dL Albumin (3.5-5.0) g/dL Arterial Blood Potassium 5.8 H 5.6 H (3.4-4.5) mmol/L Arterial Blood Glucose 233 H 211 H 153 H (75-99) mg/dL Crossmatch 07/18/20 07/18/20 07/18/20 Range/Units 15:00 15:49 15:49 WBC 12.5 H (3.8-10.6) k/uL RBC 2.66 L (4.30-5.90) m/uL Hgb 8.7 L D (13.0-17.5) gm/dL Hct 26.1 L (39.0-53.0) % Plt Count 74 L D (150-450) k/uL Neutrophils # 10.9 H (1.3-7.7) k/uL Lymphocytes # 0.6 L (1.0-4.8) k/uL Monocytes # (0-1.0) k/uL PT 13.2 H (9.0-12.0) sec INR 1.3 H (<1.2) APTT 33.8 H (22.0-30.0) sec ABG pH (7.35-7.45) ABG pCO2 (35-45) mmHg ABG pO2 383 H (83-108) mmHg ABG HCO3 (21-25) mmol/L ABG Total CO2 26 H (19-24) mmol/L ABG O2 Saturation 100.0 H (94-97) % ABG Hematocrit 29 L (34.0-46.0) % ABG Sodium (135-146) mmol/L ABG Potassium 4.8 H (3.4-4.5) mmol/L ABG Ionized Calcium (4.5-5.3) mg/dL ABG Glucose 127 H (75-99) mg/dL ABG Lactic Acid 2.2 H* (0.5-1.6) mmol/L Hemoglobin 9.5 L (13.0-17.5) gm/dL Sodium (137-145) mmol/L Chloride (98-107) mmol/L BUN (9-20) mg/dL Glucose (74-99) mg/dL POC Glucose (mg/dL) (75-99) mg/dL Calcium (8.4-10.2) mg/dL Magnesium (1.6-2.3) mg/dL Total Bilirubin (0.2-1.3) mg/dL AST (17-59) U/L Alkaline Phosphatase (38-126) U/L Total Protein (6.3-8.2) g/dL Albumin (3.5-5.0) g/dL Arterial Blood Potassium 4.8 H (3.4-4.5) mmol/L Arterial Blood Glucose 127 H (75-99) mg/dL Crossmatch 07/18/20 07/18/20 07/18/20 Range/Units 15:49 15:51 17:55 WBC (3.8-10.6) k/uL RBC (4.30-5.90) m/uL Hgb (13.0-17.5) gm/dL Hct (39.0-53.0) % Plt Count (150-450) k/uL Neutrophils # (1.3-7.7) k/uL Lymphocytes # (1.0-4.8) k/uL Monocytes # (0-1.0) k/uL PT (9.0-12.0) sec INR (<1.2) APTT (22.0-30.0) sec ABG pH (7.35-7.45) ABG pCO2 (35-45) mmHg ABG pO2 (83-108) mmHg ABG HCO3 (21-25) mmol/L ABG Total CO2 (19-24) mmol/L ABG O2 Saturation (94-97) % ABG Hematocrit (34.0-46.0) % ABG Sodium (135-146) mmol/L ABG Potassium (3.4-4.5) mmol/L ABG Ionized Calcium (4.5-5.3) mg/dL ABG Glucose (75-99) mg/dL ABG Lactic Acid (0.5-1.6) mmol/L Hemoglobin (13.0-17.5) gm/dL Sodium (137-145) mmol/L Chloride 109 H (98-107) mmol/L BUN 26 H (9-20) mg/dL Glucose (74-99) mg/dL POC Glucose (mg/dL) 102 H 125 H (75-99) mg/dL Calcium 7.7 L (8.4-10.2) mg/dL Magnesium 2.4 H (1.6-2.3) mg/dL Total Bilirubin (0.2-1.3) mg/dL AST (17-59) U/L Alkaline Phosphatase <20 L (38-126) U/L Total Protein 4.4 L (6.3-8.2) g/dL Albumin 2.8 L (3.5-5.0) g/dL Arterial Blood Potassium (3.4-4.5) mmol/L Arterial Blood Glucose (75-99) mg/dL Crossmatch 07/18/20 07/18/20 07/18/20 Range/Units 18:30 19:09 19:32 WBC 14.8 H (3.8-10.6) k/uL RBC 2.78 L (4.30-5.90) m/uL Hgb 9.2 L (13.0-17.5) gm/dL Hct 27.0 L (39.0-53.0) % Plt Count 77 L (150-450) k/uL Neutrophils # 13.1 H (1.3-7.7) k/uL Lymphocytes # 0.5 L (1.0-4.8) k/uL Monocytes # 1.1 H (0-1.0) k/uL PT (9.0-12.0) sec INR (<1.2) APTT (22.0-30.0) sec ABG pH (7.35-7.45) ABG pCO2 (35-45) mmHg ABG pO2 (83-108) mmHg ABG HCO3 (21-25) mmol/L ABG Total CO2 (19-24) mmol/L ABG O2 Saturation (94-97) % ABG Hematocrit (34.0-46.0) % ABG Sodium (135-146) mmol/L ABG Potassium (3.4-4.5) mmol/L ABG Ionized Calcium (4.5-5.3) mg/dL ABG Glucose (75-99) mg/dL ABG Lactic Acid (0.5-1.6) mmol/L Hemoglobin (13.0-17.5) gm/dL Sodium (137-145) mmol/L Chloride (98-107) mmol/L BUN (9-20) mg/dL Glucose (74-99) mg/dL POC Glucose (mg/dL) 121 H 118 H (75-99) mg/dL Calcium (8.4-10.2) mg/dL Magnesium (1.6-2.3) mg/dL Total Bilirubin (0.2-1.3) mg/dL AST (17-59) U/L Alkaline Phosphatase (38-126) U/L Total Protein (6.3-8.2) g/dL Albumin (3.5-5.0) g/dL Arterial Blood Potassium (3.4-4.5) mmol/L Arterial Blood Glucose (75-99) mg/dL Crossmatch 07/18/20 07/18/20 07/18/20 Range/Units 19:40 21:08 21:37 WBC (3.8-10.6) k/uL RBC (4.30-5.90) m/uL Hgb (13.0-17.5) gm/dL Hct (39.0-53.0) % Plt Count (150-450) k/uL Neutrophils # (1.3-7.7) k/uL Lymphocytes # (1.0-4.8) k/uL Monocytes # (0-1.0) k/uL PT (9.0-12.0) sec INR (<1.2) APTT (22.0-30.0) sec ABG pH (7.35-7.45) ABG pCO2 (35-45) mmHg ABG pO2 155 H (83-108) mmHg ABG HCO3 (21-25) mmol/L ABG Total CO2 (19-24) mmol/L ABG O2 Saturation 100.0 H (94-97) % ABG Hematocrit (34.0-46.0) % ABG Sodium (135-146) mmol/L ABG Potassium (3.4-4.5) mmol/L ABG Ionized Calcium (4.5-5.3) mg/dL ABG Glucose (75-99) mg/dL ABG Lactic Acid (0.5-1.6) mmol/L Hemoglobin (13.0-17.5) gm/dL Sodium 134 L (137-145) mmol/L Chloride (98-107) mmol/L BUN 26 H (9-20) mg/dL Glucose 174 H (74-99) mg/dL POC Glucose (mg/dL) 154 H (75-99) mg/dL Calcium 8.1 L (8.4-10.2) mg/dL Magnesium (1.6-2.3) mg/dL Total Bilirubin (0.2-1.3) mg/dL AST (17-59) U/L Alkaline Phosphatase (38-126) U/L Total Protein (6.3-8.2) g/dL Albumin (3.5-5.0) g/dL Arterial Blood Potassium (3.4-4.5) mmol/L Arterial Blood Glucose (75-99) mg/dL Crossmatch 07/18/20 07/18/20 07/18/20 Range/Units 21:43 21:45 22:10 WBC (3.8-10.6) k/uL RBC (4.30-5.90) m/uL Hgb (13.0-17.5) gm/dL Hct (39.0-53.0) % Plt Count (150-450) k/uL Neutrophils # (1.3-7.7) k/uL Lymphocytes # (1.0-4.8) k/uL Monocytes # (0-1.0) k/uL PT (9.0-12.0) sec INR (<1.2) APTT (22.0-30.0) sec ABG pH (7.35-7.45) ABG pCO2 (35-45) mmHg ABG pO2 (83-108) mmHg ABG HCO3 (21-25) mmol/L ABG Total CO2 (19-24) mmol/L ABG O2 Saturation (94-97) % ABG Hematocrit (34.0-46.0) % ABG Sodium (135-146) mmol/L ABG Potassium (3.4-4.5) mmol/L ABG Ionized Calcium (4.5-5.3) mg/dL ABG Glucose (75-99) mg/dL ABG Lactic Acid (0.5-1.6) mmol/L Hemoglobin (13.0-17.5) gm/dL Sodium (137-145) mmol/L Chloride (98-107) mmol/L BUN (9-20) mg/dL Glucose (74-99) mg/dL POC Glucose (mg/dL) 307 H 180 H 145 H (75-99) mg/dL Calcium (8.4-10.2) mg/dL Magnesium (1.6-2.3) mg/dL Total Bilirubin (0.2-1.3) mg/dL AST (17-59) U/L Alkaline Phosphatase (38-126) U/L Total Protein (6.3-8.2) g/dL Albumin (3.5-5.0) g/dL Arterial Blood Potassium (3.4-4.5) mmol/L Arterial Blood Glucose (75-99) mg/dL Crossmatch 07/18/20 07/19/20 07/19/20 Range/Units 23:11 00:42 01:49 WBC (3.8-10.6) k/uL RBC (4.30-5.90) m/uL Hgb (13.0-17.5) gm/dL Hct (39.0-53.0) % Plt Count (150-450) k/uL Neutrophils # (1.3-7.7) k/uL Lymphocytes # (1.0-4.8) k/uL Monocytes # (0-1.0) k/uL PT (9.0-12.0) sec INR (<1.2) APTT (22.0-30.0) sec ABG pH (7.35-7.45) ABG pCO2 (35-45) mmHg ABG pO2 (83-108) mmHg ABG HCO3 (21-25) mmol/L ABG Total CO2 (19-24) mmol/L ABG O2 Saturation (94-97) % ABG Hematocrit (34.0-46.0) % ABG Sodium (135-146) mmol/L ABG Potassium (3.4-4.5) mmol/L ABG Ionized Calcium (4.5-5.3) mg/dL ABG Glucose (75-99) mg/dL ABG Lactic Acid (0.5-1.6) mmol/L Hemoglobin (13.0-17.5) gm/dL Sodium (137-145) mmol/L Chloride (98-107) mmol/L BUN (9-20) mg/dL Glucose (74-99) mg/dL POC Glucose (mg/dL) 169 H 146 H 135 H (75-99) mg/dL Calcium (8.4-10.2) mg/dL Magnesium (1.6-2.3) mg/dL Total Bilirubin (0.2-1.3) mg/dL AST (17-59) U/L Alkaline Phosphatase (38-126) U/L Total Protein (6.3-8.2) g/dL Albumin (3.5-5.0) g/dL Arterial Blood Potassium (3.4-4.5) mmol/L Arterial Blood Glucose (75-99) mg/dL Crossmatch 07/19/20 07/19/20 07/19/20 Range/Units 03:44 03:45 03:45 WBC 11.9 H (3.8-10.6) k/uL RBC 2.60 L (4.30-5.90) m/uL Hgb 9.0 L (13.0-17.5) gm/dL Hct 25.0 L (39.0-53.0) % Plt Count 72 L (150-450) k/uL Neutrophils # 10.5 H (1.3-7.7) k/uL Lymphocytes # 0.5 L (1.0-4.8) k/uL Monocytes # (0-1.0) k/uL PT (9.0-12.0) sec INR (<1.2) APTT (22.0-30.0) sec ABG pH (7.35-7.45) ABG pCO2 (35-45) mmHg ABG pO2 (83-108) mmHg ABG HCO3 (21-25) mmol/L ABG Total CO2 (19-24) mmol/L ABG O2 Saturation (94-97) % ABG Hematocrit (34.0-46.0) % ABG Sodium (135-146) mmol/L ABG Potassium (3.4-4.5) mmol/L ABG Ionized Calcium (4.5-5.3) mg/dL ABG Glucose (75-99) mg/dL ABG Lactic Acid (0.5-1.6) mmol/L Hemoglobin (13.0-17.5) gm/dL Sodium 133 L (137-145) mmol/L Chloride (98-107) mmol/L BUN 25 H (9-20) mg/dL Glucose 128 H (74-99) mg/dL POC Glucose (mg/dL) 132 H (75-99) mg/dL Calcium 8.0 L (8.4-10.2) mg/dL Magnesium (1.6-2.3) mg/dL Total Bilirubin 1.7 H (0.2-1.3) mg/dL AST 68 H (17-59) U/L Alkaline Phosphatase 21 L (38-126) U/L Total Protein 4.8 L (6.3-8.2) g/dL Albumin 3.1 L (3.5-5.0) g/dL Arterial Blood Potassium (3.4-4.5) mmol/L Arterial Blood Glucose (75-99) mg/dL Crossmatch 07/19/20 07/19/20 07/19/20 Range/Units 05:25 06:24 07:36 WBC (3.8-10.6) k/uL RBC (4.30-5.90) m/uL Hgb (13.0-17.5) gm/dL Hct (39.0-53.0) % Plt Count (150-450) k/uL Neutrophils # (1.3-7.7) k/uL Lymphocytes # (1.0-4.8) k/uL Monocytes # (0-1.0) k/uL PT (9.0-12.0) sec INR (<1.2) APTT (22.0-30.0) sec ABG pH (7.35-7.45) ABG pCO2 (35-45) mmHg ABG pO2 (83-108) mmHg ABG HCO3 (21-25) mmol/L ABG Total CO2 (19-24) mmol/L ABG O2 Saturation (94-97) % ABG Hematocrit (34.0-46.0) % ABG Sodium (135-146) mmol/L ABG Potassium (3.4-4.5) mmol/L ABG Ionized Calcium (4.5-5.3) mg/dL ABG Glucose (75-99) mg/dL ABG Lactic Acid (0.5-1.6) mmol/L Hemoglobin (13.0-17.5) gm/dL Sodium (137-145) mmol/L Chloride (98-107) mmol/L BUN (9-20) mg/dL Glucose (74-99) mg/dL POC Glucose (mg/dL) 118 H 122 H 145 H (75-99) mg/dL Calcium (8.4-10.2) mg/dL Magnesium (1.6-2.3) mg/dL Total Bilirubin (0.2-1.3) mg/dL AST (17-59) U/L Alkaline Phosphatase (38-126) U/L Total Protein (6.3-8.2) g/dL Albumin (3.5-5.0) g/dL Arterial Blood Potassium (3.4-4.5) mmol/L Arterial Blood Glucose (75-99) mg/dL Crossmatch 07/19/20 07/19/20 Range/Units 07:57 09:20 WBC (3.8-10.6) k/uL RBC (4.30-5.90) m/uL Hgb (13.0-17.5) gm/dL Hct (39.0-53.0) % Plt Count (150-450) k/uL Neutrophils # (1.3-7.7) k/uL Lymphocytes # (1.0-4.8) k/uL Monocytes # (0-1.0) k/uL PT (9.0-12.0) sec INR (<1.2) APTT (22.0-30.0) sec ABG pH (7.35-7.45) ABG pCO2 (35-45) mmHg ABG pO2 (83-108) mmHg ABG HCO3 (21-25) mmol/L ABG Total CO2 (19-24) mmol/L ABG O2 Saturation (94-97) % ABG Hematocrit (34.0-46.0) % ABG Sodium (135-146) mmol/L ABG Potassium (3.4-4.5) mmol/L ABG Ionized Calcium (4.5-5.3) mg/dL ABG Glucose (75-99) mg/dL ABG Lactic Acid (0.5-1.6) mmol/L Hemoglobin (13.0-17.5) gm/dL Sodium (137-145) mmol/L Chloride (98-107) mmol/L BUN (9-20) mg/dL Glucose (74-99) mg/dL POC Glucose (mg/dL) 182 H 185 H (75-99) mg/dL Calcium (8.4-10.2) mg/dL Magnesium (1.6-2.3) mg/dL Total Bilirubin (0.2-1.3) mg/dL AST (17-59) U/L Alkaline Phosphatase (38-126) U/L Total Protein (6.3-8.2) g/dL Albumin (3.5-5.0) g/dL Arterial Blood Potassium (3.4-4.5) mmol/L Arterial Blood Glucose (75-99) mg/dL Crossmatch - Imaging and Cardiology Chest x-ray: report reviewed, image reviewed Assessment and Plan Assessment: 1. Heavily calcified symptomatic triple-vessel coronary artery disease, status post 2 vessel coronary artery bypass grafting surgery 2. History of coronary artery disease with stent placement to his right coronary artery in 2002 3. History of hypertension 4. History of hyperlipidemia 5. Hypothyroid status post partial thyroidectomy 6. Chronic obstructive pulmonary disease with preoperative FEV1 53% of predicted value 7. Remote history of tobacco dependence quit smoking 20 years ago 8. Chronic kidney disease stage III with a baseline creatinine of 1.4-1.5 9. Diabetes mellitus type 2 with a preoperative hemoglobin A1c 5.2% 10. Postoperative acute blood loss anemia, expected 11. Postoperative paroxysmal atrial fibrillation, unexpected Plan: 1. Continue aspirin, statin, Plavix, and beta apolinar. Will increase metoprolol tartrate 25 mg by mouth twice a day. 2. Wean oxygen as tolerated. Encourage incentive spirometry use 10 times every hour while awake. Bronchodilators per pulmonology management. 3. Increase activity, ambulate as tolerated. PT/OT/cardiac rehab consulted. 4. Will monitor daily labs and chest x-rays. Electrolyte replacement per protocol. 5. GI/DVT prophylaxis. 6. Pain control with current medication regimen. 7. Insulin management per Dr. Meadows 8. Discontinue nitroglycerin drip. 9. Discontinue [place]. Connect Cordis to continuous CVP monitoring. 10. Continue mediastinal/left pleural chest tubes for another 24 hours. 11. Continue Villafana catheter for another 24 hours. Strict accurate intake and output, daily weight with stand upscale, not bed scale 12. Consult Dr. Dempsey from general surgery as the patient's chest x-ray shows some pneumoperitoneum. 13. Amiodarone 400 mg by mouth twice a day initiated, continue amiodarone drip at 0.5 mg/m until current bag is finished for atrial fibrillation prophylaxis. 14. Keep atrial epicardial pacemaker wires in place and grounded. 15. More recommendations to follow based on patient's clinical course. Time with Patient: Greater than 30
[2020-07-19 10:06] LABS: Glucose,Whole Blood 158 mg/dL (75-99)
--- NOTE | 2020-07-19 10:40 | P.CNPUL ---
History of Present Illness Consult date: 07/19/20 Requesting physician: Estee Cantor Reason for consult: other Chief complaint: Coronary artery disease, status post three-vessel bypass grafting History of present illness: 79-year-old white male patient with past medical history of hypertension, hyperlipidemia, moderate to severe COPD with the baseline FEV1 of 56% of predicted who came in on 07/18/2020 for elective two-vessel bypass grafting with PABLO to LAD, and SVG to the PDA. He was seen in the intensive care unit following surgery, patient was successfully weaned and extubated from mechanical ventilator and under 6 hours following his OR exit, is currently awake and alert, sitting in the chair, he is currently on 2 L of oxygen, his pulse ox is 98%, hemodynamically he stable, blood pressure is 106/51, PA pressures 35/11, CVP is 8, no fever or chills, IV fluids including the 0.9 normal saline at a rate of 30 ML per hour, insulin is 4.5 units per hour, no vasoactive drips. Today's chest x-ray shows a pneumoperitoneum with lucency present underneath the right hemidiaphragm. He has left pleural and mediastinal chest tube, and there has been 500 mL of serosanguineous output from the left pleural and 350 mL from the mediastinal chest tube in the last 24 hours. Is having some mild discomfort under the right rib cage, but no acute distress, abdomen is distended but soft, he is hemodynamically stable, he is in sinus mechanism, no nausea vomiting or diarrhea. CT of the abdomen and pelvis is pending today's labs have been re viewed, showing white blood cell count of 11.9, hemoglobin of 9, sodium is 133, the rest of the electrolytes were within normal limits, B1 is 25 creatinine is 1.18 Review of Systems All systems: negative Constitutional: Denies chills, Denies fever Eyes: denies blurred vision, denies pain Ears, nose, mouth and throat: Denies headache, Denies sore throat Cardiovascular: Denies chest pain, Denies shortness of breath Respiratory: Denies cough Gastrointestinal: Denies abdominal pain, Denies diarrhea, Denies nausea, Denies vomiting Musculoskeletal: Denies myalgias Integumentary: Denies pruritus, Denies rash Neurological: Denies numbness, Denies weakness Psychiatric: Denies anxiety, Denies depression Endocrine: Denies fatigue, Denies weight change 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, pneumonia in November, some decreased kidney function History of Any Multi-Drug Resistant Organisms: None Reported Past Surgical History: Heart Catheterization, Heart Catheterization With Stent Additional Past Surgical History / Comment(s): 1/2 thyroid removed, nessa cataract removal & lens implanted, lasik on nessa eyes, EGD Past Anesthesia/Blood Transfusion Reactions: No Reported Reaction Date of Last Stent Placement:: 2001 Past Psychological History: No Psychological Hx Reported Smoking Status: Former smoker Past Alcohol Use History: Occasional Additional Past Alcohol Use History / Comment(s): Drinks 2-3 glasses of wine approximately once a week-not lately, quit smoking 20 years ago Past Drug Use History: None Reported - Past Family History Mother Family Medical History: Cancer Additional Family Medical History / Comment(s): sx: appendix; CA: breast ( from) Father Family Medical History: COPD, CVA/TIA Additional Family Medical History / Comment(s): CVA in 1978 ( from), sinus sx Medications and Allergies Home Medications Medication Instructions Recorded Confirmed Type Albuterol Inhaler (Mhu) [Ventolin 2 puff INHALATION RT-QID PRN 12/11/15 07/14/20 History Hfa Inhaler] Aspirin [Adult Low Dose Aspirin EC] 81 mg PO DAILY 12/11/15 07/14/20 History Calcium Carbonate/Vitamin D3 1 tab PO W/LUNCH 12/11/15 07/18/20 History [Calcium 600 + Vit D 400 Tablet] Fluticasone/Salmeterol [Advair 1 puff INHALATION RT-BID 12/11/15 07/14/20 History 500-50 Diskus] Levothyroxine Sodium [Synthroid] 50 mcg PO DAILY 12/11/15 07/18/20 History Losartan Potassium [Cozaar] 100 mg PO DAILY 12/11/15 07/18/20 History Metoprolol Succinate (ER) [Toprol 100 mg PO DAILY 12/11/15 07/18/20 History Xl] Multivitamin [Men's Multi-Vitamin] 1 tab PO W/LUNCH 12/11/15 07/18/20 History Tiotropium 18 Mcg/Puff [Spiriva] 1 cap INHALATION RT-DAILY 12/11/15 07/14/20 History metFORMIN HCL [Glucophage] 500 mg PO PC-SUPPER 12/11/15 07/18/20 History Ipratropium [place] 0.06%Nasal 1 spray EA NOSTRIL QID PRN 12/04/19 07/18/20 History [Atrovent Nasal 0.06%] Isosorbide Mononitrate [Isosorbide 30 mg PO DAILY 06/20/20 07/18/20 History Mononitrate ER] Atorvastatin [Lipitor] 40 mg PO HS 07/14/20 07/18/20 History Fluticasone Nasal [place] [Flonase 2 spr EA NOSTRIL DAILY PRN 07/14/20 07/18/20 History Nasal [place]] Mupirocin 2% Oint [Bactroban 2% 1 applic NASAL BID 07/14/20 07/18/20 History Oint] Nitroglycerin Sl Tabs [Nitrostat] 0.4 mg SUBLINGUAL Q5M PRN 07/14/20 07/14/20 History Allergies Allergy/AdvReac Type Severity Reaction Status Date / Time No Known Allergies Allergy Verified 07/14/20 12:50 Physical Exam Vitals: Vital Signs Temp Pulse Resp BP Pulse Ox 07/19/20 08:20 76 07/19/20 08:02 75 07/19/20 07:00 77 22 98 07/19/20 06:30 75 20 98 07/19/20 06:00 77 16 120/67 96 07/19/20 05:30 98 95 07/19/20 05:00 80 16 97 07/19/20 04:30 69 97 07/19/20 04:00 98.2 F 71 19 112/56 98 07/19/20 03:30 68 19 98 07/19/20 03:00 70 18 98 07/19/20 02:30 67 20 98 07/19/20 02:00 76 20 102/56 98 07/19/20 01:30 69 19 99 07/19/20 01:00 68 19 98 07/19/20 00:30 77 21 102/56 98 07/19/20 00:00 97.9 F 71 19 99 07/18/20 23:30 81 21 99 12/01/20 23:18 16 07/18/20 23:00 75 20 99 07/18/20 22:45 74 20 99 07/18/20 22:30 107 H 23 99 07/18/20 22:15 141 H 22 104/71 99 07/18/20 22:14 100 07/18/20 22:00 107 H 16 98 07/18/20 21:45 118 H 22 100 07/18/20 21:30 134 H 24 90/57 100 07/18/20 21:15 112 H 16 100 07/18/20 21:00 121 H 18 100 07/18/20 20:50 100 07/18/20 20:45 110 H 18 100 07/18/20 20:30 125 H 18 100 07/18/20 20:15 115 H 17 100 07/18/20 20:00 122 H 20 100 07/18/20 19:45 97.7 F 91 12 100 07/18/20 19:30 89 18 100 07/18/20 19:15 86 25 H 100 07/18/20 19:00 87 24 100 07/18/20 18:45 86 24 100 07/18/20 18:30 91 21 100 07/18/20 18:15 94 21 100 07/18/20 18:00 93 21 99 07/18/20 17:45 99 19 99 07/18/20 17:30 92 22 99 07/18/20 17:15 87 23 99 07/18/20 17:00 85 22 98 07/18/20 16:45 83 22 98 07/18/20 16:30 81 19 99 07/18/20 16:15 80 16 99 07/18/20 16:00 80 13 100 07/18/20 15:45 80 13 98 Intake and Output 07/18/20 07/19/20 07/19/20 22:59 06:59 14:59 Intake Total 9142.187 8675.723 223.006 Output Total 1178 800 125 Balance 8.468 1194.723 98.006 Intake: IV 1142 893 208 ACETAMINOPHEN IV (For NPO 100 100 ) 1,000 mg In Empty Bag 1 bag @ 400 mls/hr IVPB Q6HR [facility] Rx#:[id number] Albumin Human 5% 250 ml @ 250 0 mls/hr IVPB .[facility] Rx#:[id number] Amiodarone 360 mg In 99 191 50 Dextrose 5% in Water 200 ml @ 1 MG/MIN 33.333 mls/ hr IV .Q6H PRN Rx#: [id number] Sodium Chloride 0.9% 1, 400 400 100 000 ml @ 50 mls/hr IV . Q20H [facility] Rx#:[id number] cardiac output 180 80 40 ceFAZolin 2 gm In Sodium 50 50 Chloride 0.9% 50 ml @ 100 mls/hr IVPB Q8HR [facility] Rx# :[id number] pressure bag 63 72 18 Intake, IV Titration 44.468 21.723 15.006 Amount Clevidipine Butyrate 25 2.5 mg In Empty Bag 1 bag @ 1 MG/HR 2 mls/hr IV .Q24H [facility] Rx#:[id number] Dexmedetomidine/0.9% NaCl 22.760 (Pmx) 400 mcg In Empty Bag 1 bag @ Titrate IV . Q0M [facility] Rx#:[id number] Insulin Regular 100 unit 5.033 21.723 15.006 In Sodium Chloride 0.9% 100 ml @ Per Protocol IV .Q0M [facility] Rx#:[id number] propofoL 1,000 mg In 14.175 Empty Bag 1 bag @ Titrate IV .Q0M [facility] Rx#: [id number] Oral 1080 Output: Chest Tube Drainage 524 230 40 left pleural chest tube 320 150 20 mediastinal chest tube 204 80 20 Urine 654 570 85 Other: Voiding Method Indwelling Catheter Indwelling Catheter Indwelling Catheter Weight 99.2 kg 99.2 kg ABP, PAP, CO, CI - Last 8 Hours Arterial Blood Pressure 106/51 Arterial Blood Pressure 106/47 Arterial Blood Pressure 93/41 Arterial Blood Pressure 110/74 Arterial Blood Pressure 116/57 Arterial Blood Pressure 109/54 Arterial Blood Pressure 114/58 Arterial Blood Pressure 108/55 Arterial Blood Pressure 109/56 Arterial Blood Pressure 103/56 Pulmonary Artery Pressure 35/11 Pulmonary Artery Pressure 34/13 Pulmonary Artery Pressure 26/7 Pulmonary Artery Pressure 39/23 Pulmonary Artery Pressure 40/21 Pulmonary Artery Pressure 41/24 Pulmonary Artery Pressure 39/22 Pulmonary Artery Pressure 42/22 Pulmonary Artery Pressure 40/23 Cardiac Output 5.1 Cardiac Output 5.1 Cardiac Index 2.4 Cardiac Index 2.4 GENERAL EXAM: Alert, very pleasant, 71-year-old white male, on 2 L of oxygen, sitting up in the recliner, in the ICU, comfortable in no apparent distress. HEAD: Normocephalic/atraumatic. EYES: Normal reaction of pupils, equal size. Conjunctiva pink, sclera white. NOSE: Clear with pink turbinates. THROAT: No erythema or exudates. NECK: No masses, no JVD, no thyroid enlargement, no adenopathy. CHEST: No chest wall deformity. Symmetrical expansion. Midsternal incision is clean dry and intact, 2 chest tubes and left pleural and mediastinal chest tube was resurfacing this output in the [facility] LUNGS: Equal air entry with no crackles, wheeze, rhonchi or dullness. CVS: Regular rate and rhythm, normal S1 and S2, no gallops, no murmurs, no rubs ABDOMEN: Soft, nontender. No hepatosplenomegaly, normal bowel sounds, no guarding or rigidity. EXTREMITIES: No clubbing, no edema, no cyanosis, 2+ pulses and upper and lower extremities. MUSCULOSKELETAL: Muscle strength and tone normal. SPINE: No scoliosis or deformity SKIN: No rashes CENTRAL NERVOUS SYSTEM: Alert and oriented -3. No focal deficits, tone is normal in all 4 extremities. PSYCHIATRIC: Alert and oriented -3. Appropriate affect. Intact judgment and insight. Results - Laboratory Findings CBC and BMP: 07/19/20 03:45 07/19/20 03:45 ABG ABG pH 7.38 (7.35-7.45) 07/18/20 19:40 ABG pCO2 36 mmHg (35-45) 07/18/20 19:40 ABG pO2 155 mmHg (83-108) H 07/18/20 19:40 ABG O2 Saturation 100.0 % (94-97) H 07/18/20 19:40 PT/INR, D-dimer PT 13.2 sec (9.0-12.0) H 07/18/20 15:49 INR 1.3 (<1.2) H 07/18/20 15:49 Abnormal lab findings: Abnormal Labs 07/12/20 07/18/20 07/18/20 10:00 06:19 08:50 WBC RBC Hgb Hct Plt Count Neutrophils # Lymphocytes # Monocytes # PT INR APTT ABG pH 7.34 L ABG pCO2 ABG pO2 375 H ABG HCO3 ABG Total CO2 ABG O2 Saturation 100.0 H ABG Hematocrit ABG Sodium ABG Potassium 4.7 H ABG Ionized Calcium ABG Glucose 105 H ABG Lactic Acid Hemoglobin 11.7 L Sodium Chloride BUN Glucose POC Glucose (mg/dL) 107 H Calcium Magnesium Total Bilirubin AST Alkaline Phosphatase Total Protein Albumin Arterial Blood Potassium 4.7 H Arterial Blood Glucose 105 H Crossmatch See Detail 07/18/20 07/18/20 07/18/20 11:39 11:48 12:10 WBC RBC Hgb Hct Plt Count Neutrophils # Lymphocytes # Monocytes # PT INR APTT ABG pH 7.14 L* 7.17 L* 7.26 L ABG pCO2 68 H 61 H ABG pO2 197 H 171 H >420 H ABG HCO3 20 L ABG Total CO2 25 H ABG O2 Saturation 99.2 H 99.1 H 100.0 H ABG Hematocrit 24 L ABG Sodium 131 L ABG Potassium 5.7 H 6.1 H 5.9 H ABG Ionized Calcium 4.3 L ABG Glucose 220 H 221 H 221 H ABG Lactic Acid Hemoglobin 11.9 L 11.4 L 7.8 L Sodium Chloride BUN Glucose POC Glucose (mg/dL) Calcium Magnesium Total Bilirubin AST Alkaline Phosphatase Total Protein Albumin Arterial Blood Potassium 5.7 H 6.1 H 5.9 H Arterial Blood Glucose 220 H 221 H 221 H Crossmatch 07/18/20 07/18/20 07/18/20 12:38 13:06 13:42 WBC RBC Hgb Hct Plt Count Neutrophils # Lymphocytes # Monocytes # PT INR APTT ABG pH ABG pCO2 ABG pO2 243 H 333 H >420 H ABG HCO3 ABG Total CO2 26 H ABG O2 Saturation 100.0 H 100.0 H 100.0 H ABG Hematocrit 22 L 21 L 21 L ABG Sodium 131 L 133 L 134 L ABG Potassium 6.7 H* 5.8 H 5.6 H ABG Ionized Calcium 4.3 L 4.2 L 4.2 L ABG Glucose 262 H 233 H 211 H ABG Lactic Acid 1.7 H Hemoglobin 7.1 L 6.7 L* 6.7 L* Sodium Chloride BUN Glucose POC Glucose (mg/dL) Calcium Magnesium Total Bilirubin AST Alkaline Phosphatase Total Protein Albumin Arterial Blood Potassium 6.7 H* 5.8 H 5.6 H Arterial Blood Glucose 262 H 233 H 211 H Crossmatch 07/18/20 07/18/20 07/18/20 14:37 15:00 15:49 WBC 12.5 H RBC 2.66 L Hgb 8.7 L D Hct 26.1 L Plt Count 74 L D Neutrophils # 10.9 H Lymphocytes # 0.6 L Monocytes # PT INR APTT ABG pH 7.30 L ABG pCO2 53 H ABG pO2 411 H 383 H ABG HCO3 26 H ABG Total CO2 27 H 26 H ABG O2 Saturation 100.0 H 100.0 H ABG Hematocrit 25 L 29 L ABG Sodium ABG Potassium 4.8 H ABG Ionized Calcium ABG Glucose 153 H 127 H ABG Lactic Acid 1.8 H 2.2 H* Hemoglobin 8.2 L 9.5 L Sodium Chloride BUN Glucose POC Glucose (mg/dL) Calcium Magnesium Total Bilirubin AST Alkaline Phosphatase Total Protein Albumin Arterial Blood Potassium 4.8 H Arterial Blood Glucose 153 H 127 H Crossmatch 07/18/20 07/18/20 07/18/20 15:49 15:49 15:51 WBC RBC Hgb Hct Plt Count Neutrophils # Lymphocytes # Monocytes # PT 13.2 H INR 1.3 H APTT 33.8 H ABG pH ABG pCO2 ABG pO2 ABG HCO3 ABG Total CO2 ABG O2 Saturation ABG Hematocrit ABG Sodium ABG Potassium ABG Ionized Calcium ABG Glucose ABG Lactic Acid Hemoglobin Sodium Chloride 109 H BUN 26 H Glucose POC Glucose (mg/dL) 102 H Calcium 7.7 L Magnesium 2.4 H Total Bilirubin AST Alkaline Phosphatase <20 L Total Protein 4.4 L Albumin 2.8 L Arterial Blood Potassium Arterial Blood Glucose Crossmatch 07/18/20 07/18/20 07/18/20 17:55 18:30 19:09 WBC 14.8 H RBC 2.78 L Hgb 9.2 L Hct 27.0 L Plt Count 77 L Neutrophils # 13.1 H Lymphocytes # 0.5 L Monocytes # 1.1 H PT INR APTT ABG pH ABG pCO2 ABG pO2 ABG HCO3 ABG Total CO2 ABG O2 Saturation ABG Hematocrit ABG Sodium ABG Potassium ABG Ionized Calcium ABG Glucose ABG Lactic Acid Hemoglobin Sodium Chloride BUN Glucose POC Glucose (mg/dL) 125 H 121 H Calcium Magnesium Total Bilirubin AST Alkaline Phosphatase Total Protein Albumin Arterial Blood Potassium Arterial Blood Glucose Crossmatch 07/18/20 07/18/20 07/18/20 19:32 19:40 21:08 WBC RBC Hgb Hct Plt Count Neutrophils # Lymphocytes # Monocytes # PT INR APTT ABG pH ABG pCO2 ABG pO2 155 H ABG HCO3 ABG Total CO2 ABG O2 Saturation 100.0 H ABG Hematocrit ABG Sodium ABG Potassium ABG Ionized Calcium ABG Glucose ABG Lactic Acid Hemoglobin Sodium Chloride BUN Glucose POC Glucose (mg/dL) 118 H 154 H Calcium Magnesium Total Bilirubin AST Alkaline Phosphatase Total Protein Albumin Arterial Blood Potassium Arterial Blood Glucose Crossmatch 07/18/20 07/18/20 07/18/20 21:37 21:43 21:45 WBC RBC Hgb Hct Plt Count Neutrophils # Lymphocytes # Monocytes # PT INR APTT ABG pH ABG pCO2 ABG pO2 ABG HCO3 ABG Total CO2 ABG O2 Saturation ABG Hematocrit ABG Sodium ABG Potassium ABG Ionized Calcium ABG Glucose ABG Lactic Acid Hemoglobin Sodium 134 L Chloride BUN 26 H Glucose 174 H POC Glucose (mg/dL) 307 H 180 H Calcium 8.1 L Magnesium Total Bilirubin AST Alkaline Phosphatase Total Protein Albumin Arterial Blood Potassium Arterial Blood Glucose Crossmatch 07/18/20 07/18/20 07/19/20 22:10 23:11 00:42 WBC RBC Hgb Hct Plt Count Neutrophils # Lymphocytes # Monocytes # PT INR APTT ABG pH ABG pCO2 ABG pO2 ABG HCO3 ABG Total CO2 ABG O2 Saturation ABG Hematocrit ABG Sodium ABG Potassium ABG Ionized Calcium ABG Glucose ABG Lactic Acid Hemoglobin Sodium Chloride BUN Glucose POC Glucose (mg/dL) 145 H 169 H 146 H Calcium Magnesium Total Bilirubin AST Alkaline Phosphatase Total Protein Albumin Arterial Blood Potassium Arterial Blood Glucose Crossmatch 07/19/20 07/19/20 07/19/20 01:49 03:44 03:45 WBC 11.9 H RBC 2.60 L Hgb 9.0 L Hct 25.0 L Plt Count 72 L Neutrophils # 10.5 H Lymphocytes # 0.5 L Monocytes # PT INR APTT ABG pH ABG pCO2 ABG pO2 ABG HCO3 ABG Total CO2 ABG O2 Saturation ABG Hematocrit ABG Sodium ABG Potassium ABG Ionized Calcium ABG Glucose ABG Lactic Acid Hemoglobin Sodium Chloride BUN Glucose POC Glucose (mg/dL) 135 H 132 H Calcium Magnesium Total Bilirubin AST Alkaline Phosphatase Total Protein Albumin Arterial Blood Potassium Arterial Blood Glucose Crossmatch 07/19/20 07/19/20 07/19/20 03:45 05:25 06:24 WBC RBC Hgb Hct Plt Count Neutrophils # Lymphocytes # Monocytes # PT INR APTT ABG pH ABG pCO2 ABG pO2 ABG HCO3 ABG Total CO2 ABG O2 Saturation ABG Hematocrit ABG Sodium ABG Potassium ABG Ionized Calcium ABG Glucose ABG Lactic Acid Hemoglobin Sodium 133 L Chloride BUN 25 H Glucose 128 H POC Glucose (mg/dL) 118 H 122 H Calcium 8.0 L Magnesium Total Bilirubin 1.7 H AST 68 H Alkaline Phosphatase 21 L Total Protein 4.8 L Albumin 3.1 L Arterial Blood Potassium Arterial Blood Glucose Crossmatch 07/19/20 07/19/20 07/19/20 07:36 07:57 09:20 WBC RBC Hgb Hct Plt Count Neutrophils # Lymphocytes # Monocytes # PT INR APTT ABG pH ABG pCO2 ABG pO2 ABG HCO3 ABG Total CO2 ABG O2 Saturation ABG Hematocrit ABG Sodium ABG Potassium ABG Ionized Calcium ABG Glucose ABG Lactic Acid Hemoglobin Sodium Chloride BUN Glucose POC Glucose (mg/dL) 145 H 182 H 185 H Calcium Magnesium Total Bilirubin AST Alkaline Phosphatase Total Protein Albumin Arterial Blood Potassium Arterial Blood Glucose Crossmatch 07/19/20 10:05 WBC RBC Hgb Hct Plt Count Neutrophils # Lymphocytes # Monocytes # PT INR APTT ABG pH ABG pCO2 ABG pO2 ABG HCO3 ABG Total CO2 ABG O2 Saturation ABG Hematocrit ABG Sodium ABG Potassium ABG Ionized Calcium ABG Glucose ABG Lactic Acid Hemoglobin Sodium Chloride BUN Glucose POC Glucose (mg/dL) 158 H Calcium Magnesium Total Bilirubin AST Alkaline Phosphatase Total Protein Albumin Arterial Blood Potassium Arterial Blood Glucose Crossmatch - Diagnostic Findings Chest x-ray: report reviewed, image reviewed CT scan - chest: report reviewed, image reviewed Assessment and Plan Plan: Assessment: #1. Symptomatic coronary artery disease, status post two-vessel coronary artery bypass grafting with PABLO to the LAD, SVG to the PDA, postoperative day #1 #2. History of coronary artery disease with previous stent placement #3. Routine postoperative ventilator management, and patient was successfully extubated on postoperative day 0 and under 6 hours of OR accident #4. History of hypertension #5. History of hyperlipidemia #6. Hypothyroidism status post partial thyroidectomy #7. COPD moderate to severe with preop FEV1 of 53% of predicted #8. 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 Chronic kidney disease stage III at baseline #10. Diabetes mellitus type 2 #11. Postoperative acute blood loss anemia, expected outcome of open heart surgery #12. Postoperative paroxysmal A. fib Plan: Patient was successfully weaned and extubated from the ventilator last night, no breathing issues, he is on 2 L of oxygen, chest x-ray has been reviewed, showing free air under the right diaphragm, CT of the abdomen and pelvis is pending, hemodynamically he remains stable, no acute issues otherwise. We'll continue encouraging deep breathing and coughing, monitor hemodynamics, urinary output, breathing treatments as needed, continue to closely monitor the patient in the intensive care unit I performed a history & physical examination of the patient and discussed their management with my nurse practitioner, Cheli Kendrick. I reviewed the nurse practitioner's note and agree with the documented findings and plan of care. Lung sounds are positive for diminished throughout the lung valdez. The findings and the impression was discussed with the patient. I attest to the documentation by the nurse practitioner. Time with Patient: Greater than 30
--- NOTE | 2020-07-19 11:38 | CT ---
EXAMINATION TYPE: CT abdomen pelvis wo/w con DATE OF EXAM: 07/19/2020 COMPARISON: Radiograph same day HISTORY: 79-year-old male Free air, post op CABG TECHNIQUE: Contiguous axial scanning of the abdomen and pelvis before and after administration of 100 ml Isovue 300 IV contrast. Delayed images through the kidneys and coronal/sagittal reconstructions performed. CT DLP: 3429.1 mGycm Automated exposure control for dose reduction was used. FINDINGS: Recent median sternotomy and post-CABG changes with corresponding mediastinal air in the visualized l ower thorax. Trace effusions, right greater than left with adjacent atelectasis. Basilar left-sided chest tube is present. 2 mediastinal drains are also noted along with epicardial pacer leads. The mediastinal drains appear to traverse the anterior diaphragm, refer to sagittal image 85. Scattered mild free intraperitoneal air especially located nondependently at the thoracoabdominal jean-pierre ction. Artifact relating to the patient's arms down by his side. No focal liver lesion seen. Cholelithiasis with gallstones measuring up to 1.8 cm. No abnormal gallbl adder distention. Portal venous system is patent. No biliary ductal dilatation. Adrenal glands, spleen, and pancreas appear within normal limits. Lobulated renal contours with cortical thinning suggesting chronic medical renal disease. Fusiform infrarenal AAA at 4.2 cm with moderate atherosclerotic plaque and calcifications. Moderate a therosclerotic calcifications continue within the iliac arteries. Prominent distention of the stomach with air and contrast without any abnormal wall thickening or josie rounding inflammation. No dilated small bowel or free fluid. No stool burden. Most of the residual thickening along the righ t side of the colon could be secondary to nondistention. No pericolic inflammatory change. Scott catheter is in place. The bladder is collapsed. Some intraluminal bladder air likely from instr umentation. Patulous bilateral inguinal canals. Some free air tracks within the small inguinal hernia s. No abnormal fluid collection the pelvis or pelvic lymphadenopathy. Scattered subcutaneous emphysema tracks down the right side of the abdomen and along the right side o f the hip with subcutaneous air extending along the deeper fascial planes in the visualized proximal right thigh. Bones: Mild degenerative change of both hips and at the right greater than left SI joints. Right L5 h emisacralization. Moderate to advanced degenerative disc disease L4-L5. [facility] within the visualized lo wer thoracic spine. IMPRESSION: 1. RECENT POST CABG CHANGES WITH TRACE EFFUSIONS AND BIBASILAR PATCHY DENSITIES, LIKELY ATELECTASIS. 2. SCATTERED SUBCUTANEOUS EMPHYSEMA TRACKS DOWN THE RIGHT SIDE OF THE ABDOMEN AND INTO THE RIGHT HIP AND VISUALIZED PROXIMAL RIGHT THIGH. THIS MAY BE NORMAL TRACKING POSTOPERATIVE AIR. CLINICALLY CORREL ATE. 3. MILD PNEUMOPERITONEUM. WE NOTE THE PATIENT'S 2 MEDIASTINAL DRAINS traverse THE ANTERIOR ASPECT OF THE DIAPHRAGM (SAGITTAL IMAGE 85). OTHERWISE, THE ORIGIN OF THE FREE INTRA-ABDOMINAL AIR IS UNCLEAR. 4. MILD WALL THICKENING OF THE ASCENDING COLON COULD BE FROM UNDERDISTENTION OR A NONSPECIFIC MILD CO LITIS. 5. FUSIFORM INFRARENAL AAA 4.2 CM. APPROPRIATE FOLLOW-UP RECOMMENDED. 6. SCOTT CATHETER IN PLACE. INTRALUMINAL BLADDER AIR LIKELY FROM INSTRUMENTATION.
[2020-07-19 11:41] LABS: Glucose,Whole Blood 133 mg/dL (75-99)
[2020-07-19 12:34] LABS: Glucose,Whole Blood 108 mg/dL (75-99)
[2020-07-19 12:53] LABS: Glucose,Whole Blood 121 mg/dL (75-99)
--- NOTE | 2020-07-19 13:19 | P.GSCN ---
History of Present Illness Consult date: 07/19/20 History of present illness: Reason for consult: Pneumoperitoneum HISTORY OF PRESENT ILLNESS: This is a 79-year-old male with a known history of coronary artery disease, hypertension, hyperlipidemia, COPD and diabetes mellitus. Patient is status post 2 vessel coronary artery bypass grafting surgery for triple vessel coronary artery disease. Postop day 1. Patient is currently in the ICU. He was successfully weaned and extubated from mechanical ventilation. He does not require any vasopressors. Patient had a chest x-ray that showed pneumoperitoneum with lucency present underneath the right hemidiaphragm. Patient does have [address] Surgery has been consulted in regards to the free air in the abdomen post CABG. Computed tomography scan of the abdomen and pelvis shows recent post-CABG changes with trace effusion and bibasilar patchy densities likely atelectasis. Scattered subcutaneous emphysema tracks down the right side of the abdomen and into the right hip and visualized proximal right thigh. Mild pneumoperitoneum. Noted that the patient has 2 mediastinal drains his first the anterior aspect of the diaphragm. Mild wall thickening of the ascending colon could be from under distention or a nonspecific mild colitis. 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 Patient is sitting in bedside chair comfortably. He does report some abdominal pain. He is distended but abdomen is soft. He denies any nausea or vomiting. Denies any fever, chills or sweats. PAST MEDICAL HISTORY: See list. PAST SURGICAL HISTORY: See list. MEDICATIONS: See list. ALLERGIES: See list. SOCIAL HISTORY: No illicit drug use. REVIEW OF SYSTEMS: CONSTITUTIONAL: Denies fever or chills. HEENT: Denies blurred vision, vision changes, or eye pain. Denies hemoptysis CARDIOVASCULAR: Denies chest pain or pressure. RESPIRATORY: No shortness of breath. GASTROINTESTINAL: See HPI for pertinent findings HEMATOLOGIC: Denies bleeding disorders. GENITOURINARY: Denies any blood in urine or increased urinary frequency. SKIN: Denies pruitis. Denies rash. PHYSICAL EXAM: VITAL SIGNS: Reviewed GENERAL: Well-developed in no acute distress. HEENT: No sclera icterus. Extraocular movements grossly intact. Moist buccal mucosa. Head is atraumatic, normocephalic. No nasal drainage. ABDOMEN: Soft. distended. Nontender NEUROLOGIC: Alert and oriented. Cranial nerves II through XII grossly intact. LABORATORY DATA: WBC 11.9 hemoglobin is 9.0 sodium is 133 potassium 4.7 IMAGING: Computed tomography scan of the abdomen and pelvis shows recent post-CABG changes with trace effusion and bibasilar patchy densities likely atelectasis. Scattered subcutaneous emphysema tracks down the right side of the abdomen and into the right hip and visualized proximal right thigh. Mild pneumoperitoneum. Noted that the patient has 2 mediastinal drains his first the anterior aspect of the diaphragm. Mild wall thickening of the ascending colon could be from under distention or a nonspecific mild colitis. 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 ASSESSMENT: 1. Pneumoperitoneum likely secondary to the 2 mediastinal chest tubes and recent CABG 2. Heavily calcified symptomatic triple-vessel coronary artery disease status post 2 vessel coronary bypass grafting surgery 3. History of coronary artery disease with stent placement to the RCA in 2002 4. Hypertension 5. Diabetes mellitus type 2 PLAN: -Continue supportive care -Start clear liquid diet -No surgical intervention planned Thank you for this consultation Physician Religion Department Chair note has been reviewed by physician. Signing provider agrees with the documented findings, assessment, and plan of care. 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, pneumonia in November, some decreased kidney function History of Any Multi-Drug Resistant Organisms: None Reported Past Surgical History: Heart Catheterization, Heart Catheterization With Stent Additional Past Surgical History / Comment(s): 1/2 thyroid removed, nessa cataract removal & lens implanted, lasik on nessa eyes, EGD Past Anesthesia/Blood Transfusion Reactions: No Reported Reaction Date of Last Stent Placement:: 2001 Past Psychological History: No Psychological Hx Reported Smoking Status: Former smoker Past Alcohol Use History: Occasional Additional Past Alcohol Use History / Comment(s): Drinks 2-3 glasses of wine approximately once a week-not lately, quit smoking 20 years ago Past Drug Use History: None Reported - Past Family History Mother Family Medical History: Cancer Additional Family Medical History / Comment(s): sx: appendix; CA: breast ( from) Father Family Medical History: COPD, CVA/TIA Additional Family Medical History / Comment(s): CVA in 1978 ( from), sinus sx Medications and Allergies Home Medications Medication Instructions Recorded Confirmed Type Albuterol Inhaler (Mhu) [Ventolin 2 puff INHALATION RT-QID PRN 12/11/15 07/14/20 History Hfa Inhaler] Aspirin [Adult Low Dose Aspirin EC] 81 mg PO DAILY 12/11/15 07/14/20 History Calcium Carbonate/Vitamin D3 1 tab PO W/LUNCH 12/11/15 07/18/20 History [Calcium 600 + Vit D 400 Tablet] Fluticasone/Salmeterol [Advair 1 puff INHALATION RT-BID 12/11/15 07/14/20 History 500-50 Diskus] Levothyroxine Sodium [Synthroid] 50 mcg PO DAILY 12/11/15 07/18/20 History Losartan Potassium [Cozaar] 100 mg PO DAILY 12/11/15 07/18/20 History Metoprolol Succinate (ER) [Toprol 100 mg PO DAILY 12/11/15 07/18/20 History Xl] Multivitamin [Men's Multi-Vitamin] 1 tab PO W/LUNCH 12/11/15 07/18/20 History Tiotropium 18 Mcg/Puff [Spiriva] 1 cap INHALATION RT-DAILY 12/11/15 07/14/20 History metFORMIN HCL [Glucophage] 500 mg PO PC-SUPPER 12/11/15 07/18/20 History Ipratropium [place] 0.06%Nasal 1 spray EA NOSTRIL QID PRN 12/04/19 07/18/20 History [Atrovent Nasal 0.06%] Isosorbide Mononitrate [Isosorbide 30 mg PO DAILY 06/20/20 07/18/20 History Mononitrate ER] Atorvastatin [Lipitor] 40 mg PO HS 07/14/20 07/18/20 History Fluticasone Nasal [place] [Flonase 2 spr EA NOSTRIL DAILY PRN 07/14/20 07/18/20 History Nasal [place]] Mupirocin 2% Oint [Bactroban 2% 1 applic NASAL BID 07/14/20 07/18/20 History Oint] Nitroglycerin Sl Tabs [Nitrostat] 0.4 mg SUBLINGUAL Q5M PRN 07/14/20 07/14/20 History Allergies Allergy/AdvReac Type Severity Reaction Status Date / Time No Known Allergies Allergy Verified 07/14/20 12:50 Surgical - Exam Vital Signs Temp Pulse Resp BP Pulse Ox 96.8 F L 90 16 151/82 95 07/18/20 06:23 07/18/20 06:23 07/18/20 06:23 07/18/20 06:23 07/18/20 06:23 Results - Labs 07/19/20 03:45 07/19/20 03:45 Abnormal Lab Results - Last 24 Hours (Table) 07/12/20 07/18/20 07/18/20 Range/Units 10:00 08:50 11:39 WBC (3.8-10.6) k/uL RBC (4.30-5.90) m/uL Hgb (13.0-17.5) gm/dL Hct (39.0-53.0) % Plt Count (150-450) k/uL Neutrophils # (1.3-7.7) k/uL Lymphocytes # (1.0-4.8) k/uL Monocytes # (0-1.0) k/uL PT (9.0-12.0) sec INR (<1.2) APTT (22.0-30.0) sec ABG pH 7.34 L 7.14 L* (7.35-7.45) ABG pCO2 68 H (35-45) mmHg ABG pO2 375 H 197 H (83-108) mmHg ABG HCO3 (21-25) mmol/L ABG Total CO2 25 H (19-24) mmol/L ABG O2 Saturation 100.0 H 99.2 H (94-97) % ABG Hematocrit (34.0-46.0) % ABG Sodium (135-146) mmol/L ABG Potassium 4.7 H 5.7 H (3.4-4.5) mmol/L ABG Ionized Calcium (4.5-5.3) mg/dL ABG Glucose 105 H 220 H (75-99) mg/dL ABG Lactic Acid (0.5-1.6) mmol/L Hemoglobin 11.7 L 11.9 L (13.0-17.5) gm/dL Sodium (137-145) mmol/L Chloride (98-107) mmol/L BUN (9-20) mg/dL Glucose (74-99) mg/dL POC Glucose (mg/dL) (75-99) mg/dL Calcium (8.4-10.2) mg/dL Magnesium (1.6-2.3) mg/dL Total Bilirubin (0.2-1.3) mg/dL AST (17-59) U/L Alkaline Phosphatase (38-126) U/L Total Protein (6.3-8.2) g/dL Albumin (3.5-5.0) g/dL Arterial Blood Potassium 4.7 H 5.7 H (3.4-4.5) mmol/L Arterial Blood Glucose 105 H 220 H (75-99) mg/dL Crossmatch See Detail 07/18/20 07/18/20 07/18/20 Range/Units 11:48 12:10 12:38 WBC (3.8-10.6) k/uL RBC (4.30-5.90) m/uL Hgb (13.0-17.5) gm/dL Hct (39.0-53.0) % Plt Count (150-450) k/uL Neutrophils # (1.3-7.7) k/uL Lymphocytes # (1.0-4.8) k/uL Monocytes # (0-1.0) k/uL PT (9.0-12.0) sec INR (<1.2) APTT (22.0-30.0) sec ABG pH 7.17 L* 7.26 L (7.35-7.45) ABG pCO2 61 H (35-45) mmHg ABG pO2 171 H >420 H 243 H (83-108) mmHg ABG HCO3 20 L (21-25) mmol/L ABG Total CO2 26 H (19-24) mmol/L ABG O2 Saturation 99.1 H 100.0 H 100.0 H (94-97) % ABG Hematocrit 24 L 22 L (34.0-46.0) % ABG Sodium 131 L 131 L (135-146) mmol/L ABG Potassium 6.1 H 5.9 H 6.7 H* (3.4-4.5) mmol/L ABG Ionized Calcium 4.3 L 4.3 L (4.5-5.3) mg/dL ABG Glucose 221 H 221 H 262 H (75-99) mg/dL ABG Lactic Acid (0.5-1.6) mmol/L Hemoglobin 11.4 L 7.8 L 7.1 L (13.0-17.5) gm/dL Sodium (137-145) mmol/L Chloride (98-107) mmol/L BUN (9-20) mg/dL Glucose (74-99) mg/dL POC Glucose (mg/dL) (75-99) mg/dL Calcium (8.4-10.2) mg/dL Magnesium (1.6-2.3) mg/dL Total Bilirubin (0.2-1.3) mg/dL AST (17-59) U/L Alkaline Phosphatase (38-126) U/L Total Protein (6.3-8.2) g/dL Albumin (3.5-5.0) g/dL Arterial Blood Potassium 6.1 H 5.9 H 6.7 H* (3.4-4.5) mmol/L Arterial Blood Glucose 221 H 221 H 262 H (75-99) mg/dL Crossmatch 07/18/20 07/18/20 07/18/20 Range/Units 13:06 13:42 14:37 WBC (3.8-10.6) k/uL RBC (4.30-5.90) m/uL Hgb (13.0-17.5) gm/dL Hct (39.0-53.0) % Plt Count (150-450) k/uL Neutrophils # (1.3-7.7) k/uL Lymphocytes # (1.0-4.8) k/uL Monocytes # (0-1.0) k/uL PT (9.0-12.0) sec INR (<1.2) APTT (22.0-30.0) sec ABG pH 7.30 L (7.35-7.45) ABG pCO2 53 H (35-45) mmHg ABG pO2 333 H >420 H 411 H (83-108) mmHg ABG HCO3 26 H (21-25) mmol/L ABG Total CO2 27 H (19-24) mmol/L ABG O2 Saturation 100.0 H 100.0 H 100.0 H (94-97) % ABG Hematocrit 21 L 21 L 25 L (34.0-46.0) % ABG Sodium 133 L 134 L (135-146) mmol/L ABG Potassium 5.8 H 5.6 H (3.4-4.5) mmol/L ABG Ionized Calcium 4.2 L 4.2 L (4.5-5.3) mg/dL ABG Glucose 233 H 211 H 153 H (75-99) mg/dL ABG Lactic Acid 1.7 H 1.8 H (0.5-1.6) mmol/L Hemoglobin 6.7 L* 6.7 L* 8.2 L (13.0-17.5) gm/dL Sodium (137-145) mmol/L Chloride (98-107) mmol/L BUN (9-20) mg/dL Glucose (74-99) mg/dL POC Glucose (mg/dL) (75-99) mg/dL Calcium (8.4-10.2) mg/dL Magnesium (1.6-2.3) mg/dL Total Bilirubin (0.2-1.3) mg/dL AST (17-59) U/L Alkaline Phosphatase (38-126) U/L Total Protein (6.3-8.2) g/dL Albumin (3.5-5.0) g/dL Arterial Blood Potassium 5.8 H 5.6 H (3.4-4.5) mmol/L Arterial Blood Glucose 233 H 211 H 153 H (75-99) mg/dL Crossmatch 07/18/20 07/18/20 07/18/20 Range/Units 15:00 15:49 15:49 WBC 12.5 H (3.8-10.6) k/uL RBC 2.66 L (4.30-5.90) m/uL Hgb 8.7 L D (13.0-17.5) gm/dL Hct 26.1 L (39.0-53.0) % Plt Count 74 L D (150-450) k/uL Neutrophils # 10.9 H (1.3-7.7) k/uL Lymphocytes # 0.6 L (1.0-4.8) k/uL Monocytes # (0-1.0) k/uL PT 13.2 H (9.0-12.0) sec INR 1.3 H (<1.2) APTT 33.8 H (22.0-30.0) sec ABG pH (7.35-7.45) ABG pCO2 (35-45) mmHg ABG pO2 383 H (83-108) mmHg ABG HCO3 (21-25) mmol/L ABG Total CO2 26 H (19-24) mmol/L ABG O2 Saturation 100.0 H (94-97) % ABG Hematocrit 29 L (34.0-46.0) % ABG Sodium (135-146) mmol/L ABG Potassium 4.8 H (3.4-4.5) mmol/L ABG Ionized Calcium (4.5-5.3) mg/dL ABG Glucose 127 H (75-99) mg/dL ABG Lactic Acid 2.2 H* (0.5-1.6) mmol/L Hemoglobin 9.5 L (13.0-17.5) gm/dL Sodium (137-145) mmol/L Chloride (98-107) mmol/L BUN (9-20) mg/dL Glucose (74-99) mg/dL POC Glucose (mg/dL) (75-99) mg/dL Calcium (8.4-10.2) mg/dL Magnesium (1.6-2.3) mg/dL Total Bilirubin (0.2-1.3) mg/dL AST (17-59) U/L Alkaline Phosphatase (38-126) U/L Total Protein (6.3-8.2) g/dL Albumin (3.5-5.0) g/dL Arterial Blood Potassium 4.8 H (3.4-4.5) mmol/L Arterial Blood Glucose 127 H (75-99) mg/dL Crossmatch 07/18/20 07/18/20 07/18/20 Range/Units 15:49 15:51 17:55 WBC (3.8-10.6) k/uL RBC (4.30-5.90) m/uL Hgb (13.0-17.5) gm/dL Hct (39.0-53.0) % Plt Count (150-450) k/uL Neutrophils # (1.3-7.7) k/uL Lymphocytes # (1.0-4.8) k/uL Monocytes # (0-1.0) k/uL PT (9.0-12.0) sec INR (<1.2) APTT (22.0-30.0) sec ABG pH (7.35-7.45) ABG pCO2 (35-45) mmHg ABG pO2 (83-108) mmHg ABG HCO3 (21-25) mmol/L ABG Total CO2 (19-24) mmol/L ABG O2 Saturation (94-97) % ABG Hematocrit (34.0-46.0) % ABG Sodium (135-146) mmol/L ABG Potassium (3.4-4.5) mmol/L ABG Ionized Calcium (4.5-5.3) mg/dL ABG Glucose (75-99) mg/dL ABG Lactic Acid (0.5-1.6) mmol/L Hemoglobin (13.0-17.5) gm/dL Sodium (137-145) mmol/L Chloride 109 H (98-107) mmol/L BUN 26 H (9-20) mg/dL Glucose (74-99) mg/dL POC Glucose (mg/dL) 102 H 125 H (75-99) mg/dL Calcium 7.7 L (8.4-10.2) mg/dL Magnesium 2.4 H (1.6-2.3) mg/dL Total Bilirubin (0.2-1.3) mg/dL AST (17-59) U/L Alkaline Phosphatase <20 L (38-126) U/L Total Protein 4.4 L (6.3-8.2) g/dL Albumin 2.8 L (3.5-5.0) g/dL Arterial Blood Potassium (3.4-4.5) mmol/L Arterial Blood Glucose (75-99) mg/dL Crossmatch 07/18/20 07/18/20 07/18/20 Range/Units 18:30 19:09 19:32 WBC 14.8 H (3.8-10.6) k/uL RBC 2.78 L (4.30-5.90) m/uL Hgb 9.2 L (13.0-17.5) gm/dL Hct 27.0 L (39.0-53.0) % Plt Count 77 L (150-450) k/uL Neutrophils # 13.1 H (1.3-7.7) k/uL Lymphocytes # 0.5 L (1.0-4.8) k/uL Monocytes # 1.1 H (0-1.0) k/uL PT (9.0-12.0) sec INR (<1.2) APTT (22.0-30.0) sec ABG pH (7.35-7.45) ABG pCO2 (35-45) mmHg ABG pO2 (83-108) mmHg ABG HCO3 (21-25) mmol/L ABG Total CO2 (19-24) mmol/L ABG O2 Saturation (94-97) % ABG Hematocrit (34.0-46.0) % ABG Sodium (135-146) mmol/L ABG Potassium (3.4-4.5) mmol/L ABG Ionized Calcium (4.5-5.3) mg/dL ABG Glucose (75-99) mg/dL ABG Lactic Acid (0.5-1.6) mmol/L Hemoglobin (13.0-17.5) gm/dL Sodium (137-145) mmol/L Chloride (98-107) mmol/L BUN (9-20) mg/dL Glucose (74-99) mg/dL POC Glucose (mg/dL) 121 H 118 H (75-99) mg/dL Calcium (8.4-10.2) mg/dL Magnesium (1.6-2.3) mg/dL Total Bilirubin (0.2-1.3) mg/dL AST (17-59) U/L Alkaline Phosphatase (38-126) U/L Total Protein (6.3-8.2) g/dL Albumin (3.5-5.0) g/dL Arterial Blood Potassium (3.4-4.5) mmol/L Arterial Blood Glucose (75-99) mg/dL Crossmatch 07/18/20 07/18/20 07/18/20 Range/Units 19:40 21:08 21:37 WBC (3.8-10.6) k/uL RBC (4.30-5.90) m/uL Hgb (13.0-17.5) gm/dL Hct (39.0-53.0) % Plt Count (150-450) k/uL Neutrophils # (1.3-7.7) k/uL Lymphocytes # (1.0-4.8) k/uL Monocytes # (0-1.0) k/uL PT (9.0-12.0) sec INR (<1.2) APTT (22.0-30.0) sec ABG pH (7.35-7.45) ABG pCO2 (35-45) mmHg ABG pO2 155 H (83-108) mmHg ABG HCO3 (21-25) mmol/L ABG Total CO2 (19-24) mmol/L ABG O2 Saturation 100.0 H (94-97) % ABG Hematocrit (34.0-46.0) % ABG Sodium (135-146) mmol/L ABG Potassium (3.4-4.5) mmol/L ABG Ionized Calcium (4.5-5.3) mg/dL ABG Glucose (75-99) mg/dL ABG Lactic Acid (0.5-1.6) mmol/L Hemoglobin (13.0-17.5) gm/dL Sodium 134 L (137-145) mmol/L Chloride (98-107) mmol/L BUN 26 H (9-20) mg/dL Glucose 174 H (74-99) mg/dL POC Glucose (mg/dL) 154 H (75-99) mg/dL Calcium 8.1 L (8.4-10.2) mg/dL Magnesium (1.6-2.3) mg/dL Total Bilirubin (0.2-1.3) mg/dL AST (17-59) U/L Alkaline Phosphatase (38-126) U/L Total Protein (6.3-8.2) g/dL Albumin (3.5-5.0) g/dL Arterial Blood Potassium (3.4-4.5) mmol/L Arterial Blood Glucose (75-99) mg/dL Crossmatch 07/18/20 07/18/20 07/18/20 Range/Units 21:43 21:45 22:10 WBC (3.8-10.6) k/uL RBC (4.30-5.90) m/uL Hgb (13.0-17.5) gm/dL Hct (39.0-53.0) % Plt Count (150-450) k/uL Neutrophils # (1.3-7.7) k/uL Lymphocytes # (1.0-4.8) k/uL Monocytes # (0-1.0) k/uL PT (9.0-12.0) sec INR (<1.2) APTT (22.0-30.0) sec ABG pH (7.35-7.45) ABG pCO2 (35-45) mmHg ABG pO2 (83-108) mmHg ABG HCO3 (21-25) mmol/L ABG Total CO2 (19-24) mmol/L ABG O2 Saturation (94-97) % ABG Hematocrit (34.0-46.0) % ABG Sodium (135-146) mmol/L ABG Potassium (3.4-4.5) mmol/L ABG Ionized Calcium (4.5-5.3) mg/dL ABG Glucose (75-99) mg/dL ABG Lactic Acid (0.5-1.6) mmol/L Hemoglobin (13.0-17.5) gm/dL Sodium (137-145) mmol/L Chloride (98-107) mmol/L BUN (9-20) mg/dL Glucose (74-99) mg/dL POC Glucose (mg/dL) 307 H 180 H 145 H (75-99) mg/dL Calcium (8.4-10.2) mg/dL Magnesium (1.6-2.3) mg/dL Total Bilirubin (0.2-1.3) mg/dL AST (17-59) U/L Alkaline Phosphatase (38-126) U/L Total Protein (6.3-8.2) g/dL Albumin (3.5-5.0) g/dL Arterial Blood Potassium (3.4-4.5) mmol/L Arterial Blood Glucose (75-99) mg/dL Crossmatch 07/18/20 07/19/20 07/19/20 Range/Units 23:11 00:42 01:49 WBC (3.8-10.6) k/uL RBC (4.30-5.90) m/uL Hgb (13.0-17.5) gm/dL Hct (39.0-53.0) % Plt Count (150-450) k/uL Neutrophils # (1.3-7.7) k/uL Lymphocytes # (1.0-4.8) k/uL Monocytes # (0-1.0) k/uL PT (9.0-12.0) sec INR (<1.2) APTT (22.0-30.0) sec ABG pH (7.35-7.45) ABG pCO2 (35-45) mmHg ABG pO2 (83-108) mmHg ABG HCO3 (21-25) mmol/L ABG Total CO2 (19-24) mmol/L ABG O2 Saturation (94-97) % ABG Hematocrit (34.0-46.0) % ABG Sodium (135-146) mmol/L ABG Potassium (3.4-4.5) mmol/L ABG Ionized Calcium (4.5-5.3) mg/dL ABG Glucose (75-99) mg/dL ABG Lactic Acid (0.5-1.6) mmol/L Hemoglobin (13.0-17.5) gm/dL Sodium (137-145) mmol/L Chloride (98-107) mmol/L BUN (9-20) mg/dL Glucose (74-99) mg/dL POC Glucose (mg/dL) 169 H 146 H 135 H (75-99) mg/dL Calcium (8.4-10.2) mg/dL Magnesium (1.6-2.3) mg/dL Total Bilirubin (0.2-1.3) mg/dL AST (17-59) U/L Alkaline Phosphatase (38-126) U/L Total Protein (6.3-8.2) g/dL Albumin (3.5-5.0) g/dL Arterial Blood Potassium (3.4-4.5) mmol/L Arterial Blood Glucose (75-99) mg/dL Crossmatch 07/19/20 07/19/20 07/19/20 Range/Units 03:44 03:45 03:45 WBC 11.9 H (3.8-10.6) k/uL RBC 2.60 L (4.30-5.90) m/uL Hgb 9.0 L (13.0-17.5) gm/dL Hct 25.0 L (39.0-53.0) % Plt Count 72 L (150-450) k/uL Neutrophils # 10.5 H (1.3-7.7) k/uL Lymphocytes # 0.5 L (1.0-4.8) k/uL Monocytes # (0-1.0) k/uL PT (9.0-12.0) sec INR (<1.2) APTT (22.0-30.0) sec ABG pH (7.35-7.45) ABG pCO2 (35-45) mmHg ABG pO2 (83-108) mmHg ABG HCO3 (21-25) mmol/L ABG Total CO2 (19-24) mmol/L ABG O2 Saturation (94-97) % ABG Hematocrit (34.0-46.0) % ABG Sodium (135-146) mmol/L ABG Potassium (3.4-4.5) mmol/L ABG Ionized Calcium (4.5-5.3) mg/dL ABG Glucose (75-99) mg/dL ABG Lactic Acid (0.5-1.6) mmol/L Hemoglobin (13.0-17.5) gm/dL Sodium 133 L (137-145) mmol/L Chloride (98-107) mmol/L BUN 25 H (9-20) mg/dL Glucose 128 H (74-99) mg/dL POC Glucose (mg/dL) 132 H (75-99) mg/dL Calcium 8.0 L (8.4-10.2) mg/dL Magnesium (1.6-2.3) mg/dL Total Bilirubin 1.7 H (0.2-1.3) mg/dL AST 68 H (17-59) U/L Alkaline Phosphatase 21 L (38-126) U/L Total Protein 4.8 L (6.3-8.2) g/dL Albumin 3.1 L (3.5-5.0) g/dL Arterial Blood Potassium (3.4-4.5) mmol/L Arterial Blood Glucose (75-99) mg/dL Crossmatch 07/19/20 07/19/20 07/19/20 Range/Units 05:25 06:24 07:36 WBC (3.8-10.6) k/uL RBC (4.30-5.90) m/uL Hgb (13.0-17.5) gm/dL Hct (39.0-53.0) % Plt Count (150-450) k/uL Neutrophils # (1.3-7.7) k/uL Lymphocytes # (1.0-4.8) k/uL Monocytes # (0-1.0) k/uL PT (9.0-12.0) sec INR (<1.2) APTT (22.0-30.0) sec ABG pH (7.35-7.45) ABG pCO2 (35-45) mmHg ABG pO2 (83-108) mmHg ABG HCO3 (21-25) mmol/L ABG Total CO2 (19-24) mmol/L ABG O2 Saturation (94-97) % ABG Hematocrit (34.0-46.0) % ABG Sodium (135-146) mmol/L ABG Potassium (3.4-4.5) mmol/L ABG Ionized Calcium (4.5-5.3) mg/dL ABG Glucose (75-99) mg/dL ABG Lactic Acid (0.5-1.6) mmol/L Hemoglobin (13.0-17.5) gm/dL Sodium (137-145) mmol/L Chloride (98-107) mmol/L BUN (9-20) mg/dL Glucose (74-99) mg/dL POC Glucose (mg/dL) 118 H 122 H 145 H (75-99) mg/dL Calcium (8.4-10.2) mg/dL Magnesium (1.6-2.3) mg/dL Total Bilirubin (0.2-1.3) mg/dL AST (17-59) U/L Alkaline Phosphatase (38-126) U/L Total Protein (6.3-8.2) g/dL Albumin (3.5-5.0) g/dL Arterial Blood Potassium (3.4-4.5) mmol/L Arterial Blood Glucose (75-99) mg/dL Crossmatch 07/19/20 07/19/20 07/19/20 Range/Units 07:57 09:20 10:05 WBC (3.8-10.6) k/uL RBC (4.30-5.90) m/uL Hgb (13.0-17.5) gm/dL Hct (39.0-53.0) % Plt Count (150-450) k/uL Neutrophils # (1.3-7.7) k/uL Lymphocytes # (1.0-4.8) k/uL Monocytes # (0-1.0) k/uL PT (9.0-12.0) sec INR (<1.2) APTT (22.0-30.0) sec ABG pH (7.35-7.45) ABG pCO2 (35-45) mmHg ABG pO2 (83-108) mmHg ABG HCO3 (21-25) mmol/L ABG Total CO2 (19-24) mmol/L ABG O2 Saturation (94-97) % ABG Hematocrit (34.0-46.0) % ABG Sodium (135-146) mmol/L ABG Potassium (3.4-4.5) mmol/L ABG Ionized Calcium (4.5-5.3) mg/dL ABG Glucose (75-99) mg/dL ABG Lactic Acid (0.5-1.6) mmol/L Hemoglobin (13.0-17.5) gm/dL Sodium (137-145) mmol/L Chloride (98-107) mmol/L BUN (9-20) mg/dL Glucose (74-99) mg/dL POC Glucose (mg/dL) 182 H 185 H 158 H (75-99) mg/dL Calcium (8.4-10.2) mg/dL Magnesium (1.6-2.3) mg/dL Total Bilirubin (0.2-1.3) mg/dL AST (17-59) U/L Alkaline Phosphatase (38-126) U/L Total Protein (6.3-8.2) g/dL Albumin (3.5-5.0) g/dL Arterial Blood Potassium (3.4-4.5) mmol/L Arterial Blood Glucose (75-99) mg/dL Crossmatch 07/19/20 07/19/20 07/19/20 Range/Units 11:06 12:13 12:52 WBC (3.8-10.6) k/uL RBC (4.30-5.90) m/uL Hgb (13.0-17.5) gm/dL Hct (39.0-53.0) % Plt Count (150-450) k/uL Neutrophils # (1.3-7.7) k/uL Lymphocytes # (1.0-4.8) k/uL Monocytes # (0-1.0) k/uL PT (9.0-12.0) sec INR (<1.2) APTT (22.0-30.0) sec ABG pH (7.35-7.45) ABG pCO2 (35-45) mmHg ABG pO2 (83-108) mmHg ABG HCO3 (21-25) mmol/L ABG Total CO2 (19-24) mmol/L ABG O2 Saturation (94-97) % ABG Hematocrit (34.0-46.0) % ABG Sodium (135-146) mmol/L ABG Potassium (3.4-4.5) mmol/L ABG Ionized Calcium (4.5-5.3) mg/dL ABG Glucose (75-99) mg/dL ABG Lactic Acid (0.5-1.6) mmol/L Hemoglobin (13.0-17.5) gm/dL Sodium (137-145) mmol/L Chloride (98-107) mmol/L BUN (9-20) mg/dL Glucose (74-99) mg/dL POC Glucose (mg/dL) 133 H 108 H 121 H (75-99) mg/dL Calcium (8.4-10.2) mg/dL Magnesium (1.6-2.3) mg/dL Total Bilirubin (0.2-1.3) mg/dL AST (17-59) U/L Alkaline Phosphatase (38-126) U/L Total Protein (6.3-8.2) g/dL Albumin (3.5-5.0) g/dL Arterial Blood Potassium (3.4-4.5) mmol/L Arterial Blood Glucose (75-99) mg/dL Crossmatch Diabetes panel 07/18/20 07/18/20 07/19/20 Range/Units 15:49 21:37 03:45 Sodium 138 134 L 133 L (137-145) mmol/L Potassium 4.2 4.5 4.7 (3.5-5.1) mmol/L Chloride 109 H 106 106 (98-107) mmol/L Carbon Dioxide 26 22 23 (22-30) mmol/L BUN 26 H 26 H 25 H (9-20) mg/dL Creatinine 1.20 1.21 1.18 (0.66-1.25) mg/dL Glucose 98 174 H 128 H (74-99) mg/dL Calcium 7.7 L 8.1 L 8.0 L (8.4-10.2) mg/dL AST 40 68 H (17-59) U/L ALT 21 23 (4-49) U/L Alkaline Phosphatase <20 L 21 L (38-126) U/L Total Protein 4.4 L 4.8 L (6.3-8.2) g/dL Albumin 2.8 L 3.1 L (3.5-5.0) g/dL Calcium panel 07/18/20 07/18/20 07/19/20 Range/Units 15:49 21:37 03:45 Calcium 7.7 L 8.1 L 8.0 L (8.4-10.2) mg/dL Ionized Calcium Tamara 4.8 4.9 (4.5-5.3) mg/dL Albumin 2.8 L 3.1 L (3.5-5.0) g/dL Pituitary panel 07/18/20 07/18/20 07/19/20 Range/Units 15:49 21:37 03:45 Sodium 138 134 L 133 L (137-145) mmol/L Potassium 4.2 4.5 4.7 (3.5-5.1) mmol/L Chloride 109 H 106 106 (98-107) mmol/L Carbon Dioxide 26 22 23 (22-30) mmol/L BUN 26 H 26 H 25 H (9-20) mg/dL Creatinine 1.20 1.21 1.18 (0.66-1.25) mg/dL Glucose 98 174 H 128 H (74-99) mg/dL Calcium 7.7 L 8.1 L 8.0 L (8.4-10.2) mg/dL Adrenal panel 07/18/20 07/18/20 07/19/20 Range/Units 15:49 21:37 03:45 Sodium 138 134 L 133 L (137-145) mmol/L Potassium 4.2 4.5 4.7 (3.5-5.1) mmol/L Chloride 109 H 106 106 (98-107) mmol/L Carbon Dioxide 26 22 23 (22-30) mmol/L BUN 26 H 26 H 25 H (9-20) mg/dL Creatinine 1.20 1.21 1.18 (0.66-1.25) mg/dL Glucose 98 174 H 128 H (74-99) mg/dL Calcium 7.7 L 8.1 L 8.0 L (8.4-10.2) mg/dL Total Bilirubin 1.3 1.7 H (0.2-1.3) mg/dL AST 40 68 H (17-59) U/L ALT 21 23 (4-49) U/L Alkaline Phosphatase <20 L 21 L (38-126) U/L Total Protein 4.4 L 4.8 L (6.3-8.2) g/dL Albumin 2.8 L 3.1 L (3.5-5.0) g/dL
[2020-07-19] MEDS: HEPARIN SODIUM,PORCINE 5,000 UNIT/ML 1 ML VIAL SQ SCH ×3 (14:19→23:30)
[2020-07-19] MEDS: METOCLOPRAMIDE 5 MG/ML 2 ML VIAL IVP PRN (14:21)
[2020-07-19] MEDS: CLOPIDOGREL 75 MG TAB PO SCH (14:22)
--- NOTE | 2020-07-19 14:36 | P.PN ---
Subjective Progress Note Date: 07/19/20 (delayed charting seen at 1045) Principal diagnosis: Patient is a 79 yo male with CAD, HTN, DM 2 well controlled on metformin with last A1C 5.2, and hypothyroidism after partial thyroidectomy who underwent a 2 vessel CABG on 07/18/2020. He arrived to the ICU in typical fashion. He developed some air under the diaphragm on 07/[address] scan confirmed air with no definitive cause. Patient seen and examined at bedside. He complains of pressure in his stomach that radiates down both sides worsening takes a deep breath, chest pain is well controlled, no difficulty in breathing it does hurts to take deep breath, no nausea, no vomiting, no diarrhea. General: non toxic, moderate distress secondary to pain, appears at stated age Derm: warm, dry Head: atraumatic, normocephalic, symmetric Eyes: EOMI, no lid lag, anicteric sclera Mouth: no lip lesion, mucus membranes moist Cardiovascular: S1S2 reg, no murmur, positive posterior tibial pulse bilateral, Lungs: CTA bilateral, no rhonchi, no rales , no accessory muscle use, chest tube and mediastinal tubes in place Abdominal: soft, + tympanic, tender to palpation diffusely no guarding, no appreciable organomegaly Ext: no gross muscle atrophy, trace edema, no contractures Neuro: CN II-XI grossly intact, no focal neuro deficits Psych: Alert, oriented, appropriate affect Patient was 79-year-old male status post 2 vessel coronary artery bypass grafting on 07/18/2020 currently being managed by cardiothoracic surgery. DM 2 - hold metformin - Inulin gtt per protocol - Follow blood sugars closely - A1C from 06/21/2020 5.2, anticipate discharge home back on metformin which may be able to come off in the near future in the outpatient setting. Pneumoperitoneum suspect secondary to mediastinal chest tubes -Surgery recommendations appreciated -Status post CT abdomen and pelvis Acute blood loss anemia and thrombocytopenia, anticipated outcome of surgery - follow CBC - transfuse as indicated COPD - on spiriva and advair at home Coronary artery disease -Status post coronary artery bypass grafting -Cardiothoracic and cardiology following HTN - meds per CT surgery - follow BP CKD stage III - Baseline cr 1.4-1.5 - follow renal function closely after surgery Hypothyroidism status post partial thyroidectomy - synthroid Morbid obesity with BMI 30.5 -Outpatient structured weight loss Chronic: AD[facility] Thank you for allowing us to participate in the care of this pleasant patient. Do not hesitate to contact us with questions. Someone can be reached from the [facility] hospitalist group all hours of the day at [phone] or via perfect serve. Objective - Vital Signs Vital signs: Vital Signs Temp 98 F 07/19/20 12:00 Pulse 81 07/19/20 12:00 Resp 18 07/19/20 12:00 BP 124/57 07/19/20 10:00 Pulse Ox 96 07/19/20 12:00 Intake & Output 07/18/20 07/19/20 07/19/20 18:59 06:59 18:59 Intake Total 240.784 7017.516 443.248 Output Total 3503 1125 1055 Balance -2953.325 1562.516 -611.752 Weight 99.2 kg 99.2 kg Intake: IV 533 1558 424 ACETAMINOPHEN IV (For NPO 100 100 ) 1,000 mg In Empty Bag 1 bag @ 400 mls/hr IVPB Q6HR [facility] Rx#:[id number] Albumin Human 5% 250 ml @ 250 0 mls/hr IVPB .STK-MED ONE Rx#:[id number] Amiodarone 360 mg In 290 50 Dextrose 5% in Water 200 ml @ 1 MG/MIN 33.333 mls/ hr IV .Q6H PRN Rx#: [id number] Sodium Chloride 0.9% 1, 200 600 280 000 ml @ 50 mls/hr IV . Q20H [facility]ADE Rx#:[id number] cardiac output 100 160 40 ceFAZolin 2 gm In Sodium 50 50 Chloride 0.9% 50 ml @ 100 mls/hr IVPB Q8HR [facility] Rx# :[id number] pressure bag 27 108 54 Intake, IV Titration 16.675 49.516 19.248 Amount Clevidipine Butyrate 25 2.5 mg In Empty Bag 1 bag @ 1 MG/HR 2 mls/hr IV .Q24H [facility] Rx#:[id number] Dexmedetomidine/0.9% NaCl 22.760 (Pmx) 400 mcg In Empty Bag 1 bag @ Titrate IV . Q0M [facility] Rx#:[id number] Insulin Regular 100 unit 26.756 19.248 In Sodium Chloride 0.9% 100 ml @ Per Protocol IV .Q0M [facility]ADE Rx#:[id number] propofoL 1,000 mg In 14.175 Empty Bag 1 bag @ Titrate IV .Q0M WDAE Rx#: [id number] Oral 1080 Output: Chest Tube Drainage 434 320 110 left pleural chest tube 270 200 30 mediastinal chest tube 164 120 80 Urine 1069 805 945 Estimated Blood Loss 1999 Other: Voiding Method Indwelling Catheter Indwelling Catheter Indwelling Catheter ABP, PAP, CO, CI - Last Documented Arterial Blood Pressure 124/57 Pulmonary Artery Pressure 33/14 Cardiac Output 6.7 Cardiac Index 3.1 - Labs CBC & Chem 7: 07/19/20 03:45 07/19/20 03:45 Labs: Abnormal Lab Results - Last 24 Hours (Table) 07/12/20 07/18/20 07/18/20 Range/Units 10:00 08:50 11:39 WBC (3.8-10.6) k/uL RBC (4.30-5.90) m/uL Hgb (13.0-17.5) gm/dL Hct (39.0-53.0) % Plt Count (150-450) k/uL Neutrophils # (1.3-7.7) k/uL Lymphocytes # (1.0-4.8) k/uL Monocytes # (0-1.0) k/uL PT (9.0-12.0) sec INR (<1.2) APTT (22.0-30.0) sec ABG pH 7.34 L 7.14 L* (7.35-7.45) ABG pCO2 68 H (35-45) mmHg ABG pO2 375 H 197 H (83-108) mmHg ABG HCO3 (21-25) mmol/L ABG Total CO2 25 H (19-24) mmol/L ABG O2 Saturation 100.0 H 99.2 H (94-97) % ABG Hematocrit (34.0-46.0) % ABG Sodium (135-146) mmol/L ABG Potassium 4.7 H 5.7 H (3.4-4.5) mmol/L ABG Ionized Calcium (4.5-5.3) mg/dL ABG Glucose 105 H 220 H (75-99) mg/dL ABG Lactic Acid (0.5-1.6) mmol/L Hemoglobin 11.7 L 11.9 L (13.0-17.5) gm/dL Sodium (137-145) mmol/L Chloride (98-107) mmol/L BUN (9-20) mg/dL Glucose (74-99) mg/dL POC Glucose (mg/dL) (75-99) mg/dL Calcium (8.4-10.2) mg/dL Magnesium (1.6-2.3) mg/dL Total Bilirubin (0.2-1.3) mg/dL AST (17-59) U/L Alkaline Phosphatase (38-126) U/L Total Protein (6.3-8.2) g/dL Albumin (3.5-5.0) g/dL Arterial Blood Potassium 4.7 H 5.7 H (3.4-4.5) mmol/L Arterial Blood Glucose 105 H 220 H (75-99) mg/dL Crossmatch See Detail 07/18/20 07/18/20 07/18/20 Range/Units 11:48 12:10 12:38 WBC (3.8-10.6) k/uL RBC (4.30-5.90) m/uL Hgb (13.0-17.5) gm/dL Hct (39.0-53.0) % Plt Count (150-450) k/uL Neutrophils # (1.3-7.7) k/uL Lymphocytes # (1.0-4.8) k/uL Monocytes # (0-1.0) k/uL PT (9.0-12.0) sec INR (<1.2) APTT (22.0-30.0) sec ABG pH 7.17 L* 7.26 L (7.35-7.45) ABG pCO2 61 H (35-45) mmHg ABG pO2 171 H >420 H 243 H (83-108) mmHg ABG HCO3 20 L (21-25) mmol/L ABG Total CO2 26 H (19-24) mmol/L ABG O2 Saturation 99.1 H 100.0 H 100.0 H (94-97) % ABG Hematocrit 24 L 22 L (34.0-46.0) % ABG Sodium 131 L 131 L (135-146) mmol/L ABG Potassium 6.1 H 5.9 H 6.7 H* (3.4-4.5) mmol/L ABG Ionized Calcium 4.3 L 4.3 L (4.5-5.3) mg/dL ABG Glucose 221 H 221 H 262 H (75-99) mg/dL ABG Lactic Acid (0.5-1.6) mmol/L Hemoglobin 11.4 L 7.8 L 7.1 L (13.0-17.5) gm/dL Sodium (137-145) mmol/L Chloride (98-107) mmol/L BUN (9-20) mg/dL Glucose (74-99) mg/dL POC Glucose (mg/dL) (75-99) mg/dL Calcium (8.4-10.2) mg/dL Magnesium (1.6-2.3) mg/dL Total Bilirubin (0.2-1.3) mg/dL AST (17-59) U/L Alkaline Phosphatase (38-126) U/L Total Protein (6.3-8.2) g/dL Albumin (3.5-5.0) g/dL Arterial Blood Potassium 6.1 H 5.9 H 6.7 H* (3.4-4.5) mmol/L Arterial Blood Glucose 221 H 221 H 262 H (75-99) mg/dL Crossmatch 07/18/20 07/18/20 07/18/20 Range/Units 13:06 13:42 14:37 WBC (3.8-10.6) k/uL RBC (4.30-5.90) m/uL Hgb (13.0-17.5) gm/dL Hct (39.0-53.0) % Plt Count (150-450) k/uL Neutrophils # (1.3-7.7) k/uL Lymphocytes # (1.0-4.8) k/uL Monocytes # (0-1.0) k/uL PT (9.0-12.0) sec INR (<1.2) APTT (22.0-30.0) sec ABG pH 7.30 L (7.35-7.45) ABG pCO2 53 H (35-45) mmHg ABG pO2 333 H >420 H 411 H (83-108) mmHg ABG HCO3 26 H (21-25) mmol/L ABG Total CO2 27 H (19-24) mmol/L ABG O2 Saturation 100.0 H 100.0 H 100.0 H (94-97) % ABG Hematocrit 21 L 21 L 25 L (34.0-46.0) % ABG Sodium 133 L 134 L (135-146) mmol/L ABG Potassium 5.8 H 5.6 H (3.4-4.5) mmol/L ABG Ionized Calcium 4.2 L 4.2 L (4.5-5.3) mg/dL ABG Glucose 233 H 211 H 153 H (75-99) mg/dL ABG Lactic Acid 1.7 H 1.8 H (0.5-1.6) mmol/L Hemoglobin 6.7 L* 6.7 L* 8.2 L (13.0-17.5) gm/dL Sodium (137-145) mmol/L Chloride (98-107) mmol/L BUN (9-20) mg/dL Glucose (74-99) mg/dL POC Glucose (mg/dL) (75-99) mg/dL Calcium (8.4-10.2) mg/dL Magnesium (1.6-2.3) mg/dL Total Bilirubin (0.2-1.3) mg/dL AST (17-59) U/L Alkaline Phosphatase (38-126) U/L Total Protein (6.3-8.2) g/dL Albumin (3.5-5.0) g/dL Arterial Blood Potassium 5.8 H 5.6 H (3.4-4.5) mmol/L Arterial Blood Glucose 233 H 211 H 153 H (75-99) mg/dL Crossmatch 07/18/20 07/18/20 07/18/20 Range/Units 15:00 15:49 15:49 WBC 12.5 H (3.8-10.6) k/uL RBC 2.66 L (4.30-5.90) m/uL Hgb 8.7 L D (13.0-17.5) gm/dL Hct 26.1 L (39.0-53.0) % Plt Count 74 L D (150-450) k/uL Neutrophils # 10.9 H (1.3-7.7) k/uL Lymphocytes # 0.6 L (1.0-4.8) k/uL Monocytes # (0-1.0) k/uL PT 13.2 H (9.0-12.0) sec INR 1.3 H (<1.2) APTT 33.8 H (22.0-30.0) sec ABG pH (7.35-7.45) ABG pCO2 (35-45) mmHg ABG pO2 383 H (83-108) mmHg ABG HCO3 (21-25) mmol/L ABG Total CO2 26 H (19-24) mmol/L ABG O2 Saturation 100.0 H (94-97) % ABG Hematocrit 29 L (34.0-46.0) % ABG Sodium (135-146) mmol/L ABG Potassium 4.8 H (3.4-4.5) mmol/L ABG Ionized Calcium (4.5-5.3) mg/dL ABG Glucose 127 H (75-99) mg/dL ABG Lactic Acid 2.2 H* (0.5-1.6) mmol/L Hemoglobin 9.5 L (13.0-17.5) gm/dL Sodium (137-145) mmol/L Chloride (98-107) mmol/L BUN (9-20) mg/dL Glucose (74-99) mg/dL POC Glucose (mg/dL) (75-99) mg/dL Calcium (8.4-10.2) mg/dL Magnesium (1.6-2.3) mg/dL Total Bilirubin (0.2-1.3) mg/dL AST (17-59) U/L Alkaline Phosphatase (38-126) U/L Total Protein (6.3-8.2) g/dL Albumin (3.5-5.0) g/dL Arterial Blood Potassium 4.8 H (3.4-4.5) mmol/L Arterial Blood Glucose 127 H (75-99) mg/dL Crossmatch 07/18/20 07/18/20 07/18/20 Range/Units 15:49 15:51 17:55 WBC (3.8-10.6) k/uL RBC (4.30-5.90) m/uL Hgb (13.0-17.5) gm/dL Hct (39.0-53.0) % Plt Count (150-450) k/uL Neutrophils # (1.3-7.7) k/uL Lymphocytes # (1.0-4.8) k/uL Monocytes # (0-1.0) k/uL PT (9.0-12.0) sec INR (<1.2) APTT (22.0-30.0) sec ABG pH (7.35-7.45) ABG pCO2 (35-45) mmHg ABG pO2 (83-108) mmHg ABG HCO3 (21-25) mmol/L ABG Total CO2 (19-24) mmol/L ABG O2 Saturation (94-97) % ABG Hematocrit (34.0-46.0) % ABG Sodium (135-146) mmol/L ABG Potassium (3.4-4.5) mmol/L ABG Ionized Calcium (4.5-5.3) mg/dL ABG Glucose (75-99) mg/dL ABG Lactic Acid (0.5-1.6) mmol/L Hemoglobin (13.0-17.5) gm/dL Sodium (137-145) mmol/L Chloride 109 H (98-107) mmol/L BUN 26 H (9-20) mg/dL Glucose (74-99) mg/dL POC Glucose (mg/dL) 102 H 125 H (75-99) mg/dL Calcium 7.7 L (8.4-10.2) mg/dL Magnesium 2.4 H (1.6-2.3) mg/dL Total Bilirubin (0.2-1.3) mg/dL AST (17-59) U/L Alkaline Phosphatase <20 L (38-126) U/L Total Protein 4.4 L (6.3-8.2) g/dL Albumin 2.8 L (3.5-5.0) g/dL Arterial Blood Potassium (3.4-4.5) mmol/L Arterial Blood Glucose (75-99) mg/dL Crossmatch 07/18/20 07/18/20 07/18/20 Range/Units 18:30 19:09 19:32 WBC 14.8 H (3.8-10.6) k/uL RBC 2.78 L (4.30-5.90) m/uL Hgb 9.2 L (13.0-17.5) gm/dL Hct 27.0 L (39.0-53.0) % Plt Count 77 L (150-450) k/uL Neutrophils # 13.1 H (1.3-7.7) k/uL Lymphocytes # 0.5 L (1.0-4.8) k/uL Monocytes # 1.1 H (0-1.0) k/uL PT (9.0-12.0) sec INR (<1.2) APTT (22.0-30.0) sec ABG pH (7.35-7.45) ABG pCO2 (35-45) mmHg ABG pO2 (83-108) mmHg ABG HCO3 (21-25) mmol/L ABG Total CO2 (19-24) mmol/L ABG O2 Saturation (94-97) % ABG Hematocrit (34.0-46.0) % ABG Sodium (135-146) mmol/L ABG Potassium (3.4-4.5) mmol/L ABG Ionized Calcium (4.5-5.3) mg/dL ABG Glucose (75-99) mg/dL ABG Lactic Acid (0.5-1.6) mmol/L Hemoglobin (13.0-17.5) gm/dL Sodium (137-145) mmol/L Chloride (98-107) mmol/L BUN (9-20) mg/dL Glucose (74-99) mg/dL POC Glucose (mg/dL) 121 H 118 H (75-99) mg/dL Calcium (8.4-10.2) mg/dL Magnesium (1.6-2.3) mg/dL Total Bilirubin (0.2-1.3) mg/dL AST (17-59) U/L Alkaline Phosphatase (38-126) U/L Total Protein (6.3-8.2) g/dL Albumin (3.5-5.0) g/dL Arterial Blood Potassium (3.4-4.5) mmol/L Arterial Blood Glucose (75-99) mg/dL Crossmatch 07/18/20 07/18/20 07/18/20 Range/Units 19:40 21:08 21:37 WBC (3.8-10.6) k/uL RBC (4.30-5.90) m/uL Hgb (13.0-17.5) gm/dL Hct (39.0-53.0) % Plt Count (150-450) k/uL Neutrophils # (1.3-7.7) k/uL Lymphocytes # (1.0-4.8) k/uL Monocytes # (0-1.0) k/uL PT (9.0-12.0) sec INR (<1.2) APTT (22.0-30.0) sec ABG pH (7.35-7.45) ABG pCO2 (35-45) mmHg ABG pO2 155 H (83-108) mmHg ABG HCO3 (21-25) mmol/L ABG Total CO2 (19-24) mmol/L ABG O2 Saturation 100.0 H (94-97) % ABG Hematocrit (34.0-46.0) % ABG Sodium (135-146) mmol/L ABG Potassium (3.4-4.5) mmol/L ABG Ionized Calcium (4.5-5.3) mg/dL ABG Glucose (75-99) mg/dL ABG Lactic Acid (0.5-1.6) mmol/L Hemoglobin (13.0-17.5) gm/dL Sodium 134 L (137-145) mmol/L Chloride (98-107) mmol/L BUN 26 H (9-20) mg/dL Glucose 174 H (74-99) mg/dL POC Glucose (mg/dL) 154 H (75-99) mg/dL Calcium 8.1 L (8.4-10.2) mg/dL Magnesium (1.6-2.3) mg/dL Total Bilirubin (0.2-1.3) mg/dL AST (17-59) U/L Alkaline Phosphatase (38-126) U/L Total Protein (6.3-8.2) g/dL Albumin (3.5-5.0) g/dL Arterial Blood Potassium (3.4-4.5) mmol/L Arterial Blood Glucose (75-99) mg/dL Crossmatch 07/18/20 07/18/20 07/18/20 Range/Units 21:43 21:45 22:10 WBC (3.8-10.6) k/uL RBC (4.30-5.90) m/uL Hgb (13.0-17.5) gm/dL Hct (39.0-53.0) % Plt Count (150-450) k/uL Neutrophils # (1.3-7.7) k/uL Lymphocytes # (1.0-4.8) k/uL Monocytes # (0-1.0) k/uL PT (9.0-12.0) sec INR (<1.2) APTT (22.0-30.0) sec ABG pH (7.35-7.45) ABG pCO2 (35-45) mmHg ABG pO2 (83-108) mmHg ABG HCO3 (21-25) mmol/L ABG Total CO2 (19-24) mmol/L ABG O2 Saturation (94-97) % ABG Hematocrit (34.0-46.0) % ABG Sodium (135-146) mmol/L ABG Potassium (3.4-4.5) mmol/L ABG Ionized Calcium (4.5-5.3) mg/dL ABG Glucose (75-99) mg/dL ABG Lactic Acid (0.5-1.6) mmol/L Hemoglobin (13.0-17.5) gm/dL Sodium (137-145) mmol/L Chloride (98-107) mmol/L BUN (9-20) mg/dL Glucose (74-99) mg/dL POC Glucose (mg/dL) 307 H 180 H 145 H (75-99) mg/dL Calcium (8.4-10.2) mg/dL Magnesium (1.6-2.3) mg/dL Total Bilirubin (0.2-1.3) mg/dL AST (17-59) U/L Alkaline Phosphatase (38-126) U/L Total Protein (6.3-8.2) g/dL Albumin (3.5-5.0) g/dL Arterial Blood Potassium (3.4-4.5) mmol/L Arterial Blood Glucose (75-99) mg/dL Crossmatch 07/18/20 07/19/20 07/19/20 Range/Units 23:11 00:42 01:49 WBC (3.8-10.6) k/uL RBC (4.30-5.90) m/uL Hgb (13.0-17.5) gm/dL Hct (39.0-53.0) % Plt Count (150-450) k/uL Neutrophils # (1.3-7.7) k/uL Lymphocytes # (1.0-4.8) k/uL Monocytes # (0-1.0) k/uL PT (9.0-12.0) sec INR (<1.2) APTT (22.0-30.0) sec ABG pH (7.35-7.45) ABG pCO2 (35-45) mmHg ABG pO2 (83-108) mmHg ABG HCO3 (21-25) mmol/L ABG Total CO2 (19-24) mmol/L ABG O2 Saturation (94-97) % ABG Hematocrit (34.0-46.0) % ABG Sodium (135-146) mmol/L ABG Potassium (3.4-4.5) mmol/L ABG Ionized Calcium (4.5-5.3) mg/dL ABG Glucose (75-99) mg/dL ABG Lactic Acid (0.5-1.6) mmol/L Hemoglobin (13.0-17.5) gm/dL Sodium (137-145) mmol/L Chloride (98-107) mmol/L BUN (9-20) mg/dL Glucose (74-99) mg/dL POC Glucose (mg/dL) 169 H 146 H 135 H (75-99) mg/dL Calcium (8.4-10.2) mg/dL Magnesium (1.6-2.3) mg/dL Total Bilirubin (0.2-1.3) mg/dL AST (17-59) U/L Alkaline Phosphatase (38-126) U/L Total Protein (6.3-8.2) g/dL Albumin (3.5-5.0) g/dL Arterial Blood Potassium (3.4-4.5) mmol/L Arterial Blood Glucose (75-99) mg/dL Crossmatch 07/19/20 07/19/20 07/19/20 Range/Units 03:44 03:45 03:45 WBC 11.9 H (3.8-10.6) k/uL RBC 2.60 L (4.30-5.90) m/uL Hgb 9.0 L (13.0-17.5) gm/dL Hct 25.0 L (39.0-53.0) % Plt Count 72 L (150-450) k/uL Neutrophils # 10.5 H (1.3-7.7) k/uL Lymphocytes # 0.5 L (1.0-4.8) k/uL Monocytes # (0-1.0) k/uL PT (9.0-12.0) sec INR (<1.2) APTT (22.0-30.0) sec ABG pH (7.35-7.45) ABG pCO2 (35-45) mmHg ABG pO2 (83-108) mmHg ABG HCO3 (21-25) mmol/L ABG Total CO2 (19-24) mmol/L ABG O2 Saturation (94-97) % ABG Hematocrit (34.0-46.0) % ABG Sodium (135-146) mmol/L ABG Potassium (3.4-4.5) mmol/L ABG Ionized Calcium (4.5-5.3) mg/dL ABG Glucose (75-99) mg/dL ABG Lactic Acid (0.5-1.6) mmol/L Hemoglobin (13.0-17.5) gm/dL Sodium 133 L (137-145) mmol/L Chloride (98-107) mmol/L BUN 25 H (9-20) mg/dL Glucose 128 H (74-99) mg/dL POC Glucose (mg/dL) 132 H (75-99) mg/dL Calcium 8.0 L (8.4-10.2) mg/dL Magnesium (1.6-2.3) mg/dL Total Bilirubin 1.7 H (0.2-1.3) mg/dL AST 68 H (17-59) U/L Alkaline Phosphatase 21 L (38-126) U/L Total Protein 4.8 L (6.3-8.2) g/dL Albumin 3.1 L (3.5-5.0) g/dL Arterial Blood Potassium (3.4-4.5) mmol/L Arterial Blood Glucose (75-99) mg/dL Crossmatch 07/19/20 07/19/20 07/19/20 Range/Units 05:25 06:24 07:36 WBC (3.8-10.6) k/uL RBC (4.30-5.90) m/uL Hgb (13.0-17.5) gm/dL Hct (39.0-53.0) % Plt Count (150-450) k/uL Neutrophils # (1.3-7.7) k/uL Lymphocytes # (1.0-4.8) k/uL Monocytes # (0-1.0) k/uL PT (9.0-12.0) sec INR (<1.2) APTT (22.0-30.0) sec ABG pH (7.35-7.45) ABG pCO2 (35-45) mmHg ABG pO2 (83-108) mmHg ABG HCO3 (21-25) mmol/L ABG Total CO2 (19-24) mmol/L ABG O2 Saturation (94-97) % ABG Hematocrit (34.0-46.0) % ABG Sodium (135-146) mmol/L ABG Potassium (3.4-4.5) mmol/L ABG Ionized Calcium (4.5-5.3) mg/dL ABG Glucose (75-99) mg/dL ABG Lactic Acid (0.5-1.6) mmol/L Hemoglobin (13.0-17.5) gm/dL Sodium (137-145) mmol/L Chloride (98-107) mmol/L BUN (9-20) mg/dL Glucose (74-99) mg/dL POC Glucose (mg/dL) 118 H 122 H 145 H (75-99) mg/dL Calcium (8.4-10.2) mg/dL Magnesium (1.6-2.3) mg/dL Total Bilirubin (0.2-1.3) mg/dL AST (17-59) U/L Alkaline Phosphatase (38-126) U/L Total Protein (6.3-8.2) g/dL Albumin (3.5-5.0) g/dL Arterial Blood Potassium (3.4-4.5) mmol/L Arterial Blood Glucose (75-99) mg/dL Crossmatch 07/19/20 07/19/20 07/19/20 Range/Units 07:57 09:20 10:05 WBC (3.8-10.6) k/uL RBC (4.30-5.90) m/uL Hgb (13.0-17.5) gm/dL Hct (39.0-53.0) % Plt Count (150-450) k/uL Neutrophils # (1.3-7.7) k/uL Lymphocytes # (1.0-4.8) k/uL Monocytes # (0-1.0) k/uL PT (9.0-12.0) sec INR (<1.2) APTT (22.0-30.0) sec ABG pH (7.35-7.45) ABG pCO2 (35-45) mmHg ABG pO2 (83-108) mmHg ABG HCO3 (21-25) mmol/L ABG Total CO2 (19-24) mmol/L ABG O2 Saturation (94-97) % ABG Hematocrit (34.0-46.0) % ABG Sodium (135-146) mmol/L ABG Potassium (3.4-4.5) mmol/L ABG Ionized Calcium (4.5-5.3) mg/dL ABG Glucose (75-99) mg/dL ABG Lactic Acid (0.5-1.6) mmol/L Hemoglobin (13.0-17.5) gm/dL Sodium (137-145) mmol/L Chloride (98-107) mmol/L BUN (9-20) mg/dL Glucose (74-99) mg/dL POC Glucose (mg/dL) 182 H 185 H 158 H (75-99) mg/dL Calcium (8.4-10.2) mg/dL Magnesium (1.6-2.3) mg/dL Total Bilirubin (0.2-1.3) mg/dL AST (17-59) U/L Alkaline Phosphatase (38-126) U/L Total Protein (6.3-8.2) g/dL Albumin (3.5-5.0) g/dL Arterial Blood Potassium (3.4-4.5) mmol/L Arterial Blood Glucose (75-99) mg/dL Crossmatch 07/19/20 07/19/20 07/19/20 Range/Units 11:06 12:13 12:52 WBC (3.8-10.6) k/uL RBC (4.30-5.90) m/uL Hgb (13.0-17.5) gm/dL Hct (39.0-53.0) % Plt Count (150-450) k/uL Neutrophils # (1.3-7.7) k/uL Lymphocytes # (1.0-4.8) k/uL Monocytes # (0-1.0) k/uL PT (9.0-12.0) sec INR (<1.2) APTT (22.0-30.0) sec ABG pH (7.35-7.45) ABG pCO2 (35-45) mmHg ABG pO2 (83-108) mmHg ABG HCO3 (21-25) mmol/L ABG Total CO2 (19-24) mmol/L ABG O2 Saturation (94-97) % ABG Hematocrit (34.0-46.0) % ABG Sodium (135-146) mmol/L ABG Potassium (3.4-4.5) mmol/L ABG Ionized Calcium (4.5-5.3) mg/dL ABG Glucose (75-99) mg/dL ABG Lactic Acid (0.5-1.6) mmol/L Hemoglobin (13.0-17.5) gm/dL Sodium (137-145) mmol/L Chloride (98-107) mmol/L BUN (9-20) mg/dL Glucose (74-99) mg/dL POC Glucose (mg/dL) 133 H 108 H 121 H (75-99) mg/dL Calcium (8.4-10.2) mg/dL Magnesium (1.6-2.3) mg/dL Total Bilirubin (0.2-1.3) mg/dL AST (17-59) U/L Alkaline Phosphatase (38-126) U/L Total Protein (6.3-8.2) g/dL Albumin (3.5-5.0) g/dL Arterial Blood Potassium (3.4-4.5) mmol/L Arterial Blood Glucose (75-99) mg/dL Crossmatch
[2020-07-19] MEDS: SODIUM CHLORIDE 0.9% 1,000 ML IV SCH (15:22)
[2020-07-19] MEDS: CLEVIDIPINE BUTYRATE 25 MG in EMPTY BAG 1 BAG IV SCH (15:22)
[2020-07-19 15:27] LABS: Glucose,Whole Blood 145 mg/dL (75-99)
[2020-07-19] MEDS ORDERED: FUROSEMIDE 10 MG/ML 2 ML VIAL IV ONE (17:19)
[2020-07-19 17:53] LABS: Glucose,Whole Blood 138 mg/dL (75-99)
[2020-07-19 19:11] LABS: Glucose,Whole Blood 121 mg/dL (75-99)
[2020-07-19] MEDS: SENNOSIDES-DOCUSATE SODIUM 1 EACH TAB PO SCH (21:03)
[2020-07-19 21:15] LABS: Glucose,Whole Blood 139 mg/dL (75-99)
[2020-07-19] MEDS ORDERED: DEXTROSE 5% IN WATER 100 ML with AMIODARONE 150 MG IV ONE (22:30)
[2020-07-19] MEDS ORDERED: DIGOXIN 250 MCG/ML 2 ML AMP IVP STA (23:02)
[2020-07-19 23:22] LABS: Glucose,Whole Blood 134 mg/dL (75-99)
[2020-07-20] MEDS: DILTIAZEM 125 MG in SODIUM CHLORIDE 0.9% 100 ML IV SCH ×2 (00:09→09:43)
[2020-07-20 01:07] LABS: Glucose,Whole Blood 119 mg/dL (75-99)
[2020-07-20] MEDS ORDERED: DIGOXIN 250 MCG/ML 2 ML AMP IVP ONE ×2 (03:00→11:00)
[2020-07-20 03:25] LABS: Glucose,Whole Blood 109 mg/dL (75-99)
[2020-07-20] MEDS: HYDROcodone/APAP 5-325MG 1 EACH TAB PO PRN ×3 (03:30→19:01)
[2020-07-20 04:40] LABS: Basophils % (A) 0 %; Eosinophils % (A) 0 %; HCT 26.2 % (39.0-53.0); HGB 8.9 gm/dL (13.0-17.5); Lymphocytes # (A) 0.8 k/uL (1.0-4.8); Lymphocytes % (A) 4 %; MCHC 33.8 g/dL (31.0-37.0); MCV 97.7 fL (80.0-100.0); Monocytes # (A) 1.2 k/uL (0-1.0); Monocytes % (A) 7 %; Neutrophils # (A) 15.9 k/uL (1.3-7.7); Neutrophils % (A) 88 %; RBC 2.69 m/uL (4.30-5.90); RDW 14.5 % (11.5-15.5); WBC 18.2 k/uL (3.8-10.6)
[2020-07-20 04:42] LABS: Ionized Calcium 4.6 mg/dL (4.5-5.3)
[2020-07-20 04:46] LABS: Platelet Count 99 k/uL (150-450)
[2020-07-20 04:50] LABS: Albumin 3.3 g/dL (3.5-5.0); Calcium 8.2 mg/dL (8.4-10.2); Magnesium 2.3 mg/dL (1.6-2.3); Total Bilirubin 2.8 mg/dL (0.2-1.3); Total Protein 5.2 g/dL (6.3-8.2)
[2020-07-20] MEDS: METOPROLOL TARTRATE 25 MG TAB PO SCH (05:21)
[2020-07-20] MEDS: IPRATROPIUM-ALBUTEROL 3 ML NEB INHALATION PRN (05:51)
[2020-07-20 06:36] LABS: Glucose,Whole Blood 178 mg/dL (75-99)
[2020-07-20] MEDS: LEVOTHYROXINE 50 MCG TAB PO SCH (07:09)
--- NOTE | 2020-07-20 07:33 | XR ---
EXAMINATION TYPE: XR chest 1V portable DATE OF EXAM: 07/20/2020 Comparison: 07/19/2020 Clinical History: 79-year-old male Post Operative Cardiac Surgery Findings: Median sternotomy wires are present with post-CABG clips in the mediastinum. Left basilar chest tube is present. Mediastinal drains removed in the interval. The previous right-sided pneumoperitoneum is no longer appreciated. Heart is borderline enlarged. Residual patchy opacities. Right IJ sheath with Oak-Aura catheter removed. Impression: 1. Removal of the mediastinal drains. The previous right-sided pneumoperitoneum is no longer well feliciano reciated. Attention on follow-up. 2. Left-sided chest tube. Bibasilar patchy atelectasis remains.
[2020-07-20] MEDS: IPRATROPIUM-ALBUTEROL 3 ML NEB INHALATION SCH ×4 (08:00→19:24)
[2020-07-20] MEDS: SYMBICORT 160-4.5 MCG INHALER INHALATION SCH ×2 (08:00→19:25)
[2020-07-20] MEDS: TIOTROPIUM 18 MCG/PUFF INHALER INHALATION SCH (08:01)
--- NOTE | 2020-07-20 08:03 | P.PN ---
Subjective Progress Note Date: 07/20/20 Principal diagnosis: Symptomatic triple-vessel coronary artery disease, mild left ventricular dysfunction. Previuos medical history of stenting to his right coronary artery in 2002, hypertension, hyperlipidemia, hypothyroid status post partial thyroidectomy, previous tobacco dependence quit smoking 20 years ago, moderate chronic obstructive pulmonary disease with preoperative FEV1 of 56% of predicted value, bullous emphysema, remote history of pneumonia, type 2 diabetes mellitus with a preoperative hemoglobin A1c of 5.2%, chronic kidney disease stage III with a baseline creatinine of 1.4-1.5, family history of premature coronary artery disease with brother having had CABG at less than 50 years old. POD #2 double coronary artery bypass grafting using the left internal mammary artery to left anterior descending coronary artery, reverse greater saphenous vein graft from the aorta to the posterior descending coronary artery. Exclusion of the left atrial appendage using a 35 mm Atriclip, endoscopic harvesting of the right greater saphenous vein from the groin to above the ankle level, graft flow measurement using the uVore system, intraoperative transesophageal echocardiogram and epi-aortic scanning. Postoperative acute blood loss anemia, expected outcome from hemodilution and cardiopulmonary bypass. Postoperative paroxysmal atrial fibrillation, unexpected but common outcome after open heart surgery. Pneumoperitoneum, unexpected, likely secondary to mediastinal chest tubes The patient is currently sitting up in a recliner in no acute distress. Comp lains of mild incisional type chest pain controlled on current medication regimen, complains of mild shortness of breath. Remains in atrial fibrillation with heart rate in the 90s to low 100s. Was given amiodarone bolus last night as well as IV digoxin and started on IV Cardizem. Left pleural chest tube, right internal jugular Cordis remain. Mediastinal chest tubes were discontinued yesterday, no air under the diaphragm appreciated on this morning's chest x-ray. Patient denies any abdominal pain at rest, does endorse abdominal pain with deep palpation, abdomen is soft, hypoactive bowel sounds present. Lab work this morning noted. No new concerns. No other new concerns. Objective - Vital Signs Vital signs: Vital Signs Temp 98.3 F 07/20/20 00:00 Pulse 85 07/20/20 07:00 Resp 26 H 07/20/20 07:00 BP 98/64 07/20/20 07:00 Pulse Ox 96 07/20/20 07:00 Intake & Output 07/19/20 07/20/20 07/20/20 18:59 06:59 18:59 Intake Total 0320.606 8713.599 114.25 Output Total 885 1060 35 Balance 261.109 327.599 79.25 Weight 99.2 kg 100.7 kg Intake: IV 703 276 23 Amiodarone 360 mg In 50 Dextrose 5% in Water 200 ml @ 1 MG/MIN 33.333 mls/ hr IV .Q6H PRN Rx#: [id number] Sodium Chloride 0.9% 1, 520 240 20 000 ml @ 20 mls/hr IV . Q24H [facility] Rx#:[id number] cardiac output 40 pressure bag 93 36 3 Intake, IV Titration 43.109 31.599 91.25 Amount Diltiazem 125 mg In 4.833 91.25 Sodium Chloride 0.9% 100 ml @ Per Protocol IV .Q0M [facility] Rx#:[id number] Insulin Regular 100 unit 43.109 26.766 In Sodium Chloride 0.9% 100 ml @ Per Protocol IV .Q0M [facility] Rx#:[id number] Oral 400 1080 Output: Chest Tube Drainage 260 130 left pleural chest tube 150 130 mediastinal chest tube 110 Drainage 15 Right Calf 15 Urine 625 915 35 Other: Voiding Method Indwelling Catheter Indwelling Catheter ABP, PAP, CO, CI - Last Documented Arterial Blood Pressure 125/61 Pulmonary Artery Pressure 33/14 Cardiac Output 6.7 Cardiac Index 3.1 - Constitutional General appearance: Present: cooperative, no acute distress, obese - Respiratory Details: Lungs sounds diminished bilaterally. Respirations even, nonlabored. Currently on 2 L nasal cannula with oxygen saturation 98%. Able to achieve 1000 mL on his incentive spirometry. Weak nonproductive cough. Left pleural chest tube present to continuous wall suction, 60 mL thin serosanguineous drainage overnight, 250 mL in the last 24 hours, no air leak present. - Cardiovascular Details: S1, S2 present. Irregular rate and rhythm, uncontrolled atrial fibrillation on telemetry. Sternum stable. Atrial epicardial pacemaker wires present, grounded. Palpable peripheral pulses bilaterally. Upper extremity trace generalized edema present. Heart hugger in place with patient demonstrating appropriate use. Antiembolism stockings, SCDs present. Right internal jugular Cordis present, CVP 4-6. - Gastrointestinal Gastrointestinal Comment(s): Abdomen soft, tender to palpation, nondistended. Hypoactive bowel sounds present. Tolerating clear liquids. Denies flatus - Genitourinary Genitourinary Comment(s): Villafana present draining clear, yellow urine. Output 40-50 mL per hour overnight - Integumentary Integumentary Comment(s): Skin is warm and dry with evidence of good perfusion. Anterior chest incision well approximated and covered with dry intact dressing. Right lower extremity EVH site well approximated, NAIN drain present with minimal output - Neurologic Neurologic: Present: CNII-XII intact - Musculoskeletal Musculoskeletal: Present: strength equal bilaterally - Psychiatric Psychiatric: Present: A&O x's 3, appropriate affect, intact judgment & insight - Allied health notes Allied health notes reviewed: nursing - Labs CBC & Chem 7: 07/20/20 04:04 07/20/20 04:04 Labs: Abnormal Lab Results - Last 24 Hours (Table) 07/19/20 07/19/20 07/19/20 Range/Units 07:36 07:57 09:20 WBC (3.8-10.6) k/uL RBC (4.30-5.90) m/uL Hgb (13.0-17.5) gm/dL Hct (39.0-53.0) % Plt Count (150-450) k/uL Neutrophils # (1.3-7.7) k/uL Lymphocytes # (1.0-4.8) k/uL Monocytes # (0-1.0) k/uL Sodium (137-145) mmol/L BUN (9-20) mg/dL Creatinine (0.66-1.25) mg/dL Glucose (74-99) mg/dL POC Glucose (mg/dL) 145 H 182 H 185 H (75-99) mg/dL Calcium (8.4-10.2) mg/dL Total Bilirubin (0.2-1.3) mg/dL AST (17-59) U/L Alkaline Phosphatase (38-126) U/L Total Protein (6.3-8.2) g/dL Albumin (3.5-5.0) g/dL 07/19/20 07/19/20 07/19/20 Range/Units 10:05 11:06 12:13 WBC (3.8-10.6) k/uL RBC (4.30-5.90) m/uL Hgb (13.0-17.5) gm/dL Hct (39.0-53.0) % Plt Count (150-450) k/uL Neutrophils # (1.3-7.7) k/uL Lymphocytes # (1.0-4.8) k/uL Monocytes # (0-1.0) k/uL Sodium (137-145) mmol/L BUN (9-20) mg/dL Creatinine (0.66-1.25) mg/dL Glucose (74-99) mg/dL POC Glucose (mg/dL) 158 H 133 H 108 H (75-99) mg/dL Calcium (8.4-10.2) mg/dL Total Bilirubin (0.2-1.3) mg/dL AST (17-59) U/L Alkaline Phosphatase (38-126) U/L Total Protein (6.3-8.2) g/dL Albumin (3.5-5.0) g/dL 07/19/20 07/19/20 07/19/20 Range/Units 12:52 15:26 17:51 WBC (3.8-10.6) k/uL RBC (4.30-5.90) m/uL Hgb (13.0-17.5) gm/dL Hct (39.0-53.0) % Plt Count (150-450) k/uL Neutrophils # (1.3-7.7) k/uL Lymphocytes # (1.0-4.8) k/uL Monocytes # (0-1.0) k/uL Sodium (137-145) mmol/L BUN (9-20) mg/dL Creatinine (0.66-1.25) mg/dL Glucose (74-99) mg/dL POC Glucose (mg/dL) 121 H 145 H 138 H (75-99) mg/dL Calcium (8.4-10.2) mg/dL Total Bilirubin (0.2-1.3) mg/dL AST (17-59) U/L Alkaline Phosphatase (38-126) U/L Total Protein (6.3-8.2) g/dL Albumin (3.5-5.0) g/dL 07/19/20 07/19/20 07/19/20 Range/Units 19:08 21:13 23:21 WBC (3.8-10.6) k/uL RBC (4.30-5.90) m/uL Hgb (13.0-17.5) gm/dL Hct (39.0-53.0) % Plt Count (150-450) k/uL Neutrophils # (1.3-7.7) k/uL Lymphocytes # (1.0-4.8) k/uL Monocytes # (0-1.0) k/uL Sodium (137-145) mmol/L BUN (9-20) mg/dL Creatinine (0.66-1.25) mg/dL Glucose (74-99) mg/dL POC Glucose (mg/dL) 121 H 139 H 134 H (75-99) mg/dL Calcium (8.4-10.2) mg/dL Total Bilirubin (0.2-1.3) mg/dL AST (17-59) U/L Alkaline Phosphatase (38-126) U/L Total Protein (6.3-8.2) g/dL Albumin (3.5-5.0) g/dL 07/20/20 07/20/20 07/20/20 Range/Units 01:06 03:24 04:04 WBC 18.2 H (3.8-10.6) k/uL RBC 2.69 L (4.30-5.90) m/uL Hgb 8.9 L (13.0-17.5) gm/dL Hct 26.2 L (39.0-53.0) % Plt Count 99 L (150-450) k/uL Neutrophils # 15.9 H (1.3-7.7) k/uL Lymphocytes # 0.8 L (1.0-4.8) k/uL Monocytes # 1.2 H (0-1.0) k/uL Sodium (137-145) mmol/L BUN (9-20) mg/dL Creatinine (0.66-1.25) mg/dL Glucose (74-99) mg/dL POC Glucose (mg/dL) 119 H 109 H (75-99) mg/dL Calcium (8.4-10.2) mg/dL Total Bilirubin (0.2-1.3) mg/dL AST (17-59) U/L Alkaline Phosphatase (38-126) U/L Total Protein (6.3-8.2) g/dL Albumin (3.5-5.0) g/dL 07/20/20 07/20/20 Range/Units 04:04 06:35 WBC (3.8-10.6) k/uL RBC (4.30-5.90) m/uL Hgb (13.0-17.5) gm/dL Hct (39.0-53.0) % Plt Count (150-450) k/uL Neutrophils # (1.3-7.7) k/uL Lymphocytes # (1.0-4.8) k/uL Monocytes # (0-1.0) k/uL Sodium 127 L (137-145) mmol/L BUN 25 H (9-20) mg/dL Creatinine 1.37 H (0.66-1.25) mg/dL Glucose 128 H (74-99) mg/dL POC Glucose (mg/dL) 178 H (75-99) mg/dL Calcium 8.2 L (8.4-10.2) mg/dL Total Bilirubin 2.8 H (0.2-1.3) mg/dL AST 88 H (17-59) U/L Alkaline Phosphatase 24 L (38-126) U/L Total Protein 5.2 L (6.3-8.2) g/dL Albumin 3.3 L (3.5-5.0) g/dL - Imaging and Cardiology Chest x-ray: report reviewed, image reviewed Assessment and Plan Assessment: 1. Symptomatic triple-vessel coronary artery disease, status post 2 vessel CABG 2. Mild left ventricular dysfunction 3. Previuos history of stenting to his right coronary artery in 2002 4. Hypertension 5. Hyperlipidemia 6. Hypothyroid status post partial thyroidectomy 7. Previous tobacco dependence with bullous emphysema 8. Moderate chronic obstructive pulmonary disease with preoperative FEV1 of 56% of predicted value 9. Remote history of pneumonia 10. Type 2 diabetes mellitus with a preoperative hemoglobin A1c of 5.2% 11. Chronic kidney disease stage III with a baseline creatinine of 1.4-1.5 12. Family history of premature coronary artery disease with brother having had CABG at less than 50 years old 13. Postoperative acute blood loss anemia, expected outcome 14. Postoperative paroxysmal atrial fibrillation, unexpected, status post exclusion of the left atrial appendage 15. Pneumoperitoneum, unexpected Plan: 1. Continue aspirin, statin, Plavix, and beta apolinar. Will increase beta apolinar as tolerated, increase to 50 mg twice daily. Will give 250 mcg digoxin IVP x 1 2. Continue amiodarone oral, Cardizem for A. fib., decrease cardiazem gtt 3. Wean oxygen as tolerated. Encourage incentive spirometry use 10 times every hour while awake. Bronchodilators per pulmonology management. 4. Increase activity, ambulate as tolerated. PT/OT/cardiac rehab consulted. 5. Will monitor daily labs and chest x-rays. Electrolyte replacement per protocol. 6. GI/DVT prophylaxis. 7. Pain control with current medication regimen. 8. Insulin management per Dr. Polk 9. Will discontinue NAIN drain today, leave left pleural chest tube for another 24 hours 10. Continue Villafana catheter for another 24 hours. Will give lasix 20 mg IVP x 1 11. Strict accurate intake and output, daily weight with stand upscale, not bed scale 12. Keep atrial epicardial pacemaker wires in place and grounded. 13. More recommendations to follow based on patient's clinical course. Time with Patient: Greater than 30
[2020-07-20] MEDS: CLOPIDOGREL 75 MG TAB PO SCH (08:12)
[2020-07-20] MEDS: ATORVASTATIN 40 MG TAB PO SCH (08:12)
[2020-07-20] MEDS: HEPARIN SODIUM,PORCINE 5,000 UNIT/ML 1 ML VIAL SQ SCH ×3 (08:12→23:44)
[2020-07-20] MEDS: ASPIRIN 325 MG TAB PO SCH (08:12)
[2020-07-20] MEDS: AMIODARONE 200 MG TAB PO SCH ×2 (08:12→20:07)
[2020-07-20] MEDS: SODIUM CHLORIDE 0.9% 1,000 ML IV SCH (08:13)
[2020-07-20] MEDS: PANTOPRAZOLE 40 MG/10 ML VIAL IVP SCH (08:14)
[2020-07-20 08:23] LABS: Glucose,Whole Blood 162 mg/dL (75-99)
[2020-07-20 10:00] LABS: Glucose,Whole Blood 170 mg/dL (75-99)
--- NOTE | 2020-07-20 10:39 | P.PN ---
Subjective Progress Note Date: 07/20/20 Principal diagnosis: Coronary artery disease, status post three-vessel bypass grafting 79-year-old white male patient with past medical history of hypertension, hyperlipidemia, moderate to severe COPD with the baseline FEV1 of 56% of predicted who came in on 07/18/2020 for elective two-vessel bypass grafting with PABLO to LAD, and SVG to the PDA. He was seen in the intensive care unit following surgery, patient was successfully weaned and extubated from mechanical ventilator and under 6 hours following his OR exit, is currently awake and alert, sitting in the chair, he is currently on 2 L of oxygen, his pulse ox is 98%, hemodynamically he stable, blood pressure is 106/51, PA pressures 35/11, CVP is 8, no fever or chills, IV fluids including the 0.9 normal saline at a r ate of 30 ML per hour, insulin is 4.5 units per hour, no vasoactive drips. Today's chest x-ray shows a pneumoperitoneum with lucency present underneath the right hemidiaphragm. He has left pleural and mediastinal chest tube, and there has been 500 mL of serosanguineous output from the left pleural and 350 mL from the mediastinal chest tube in the last 24 hours. Is having some mild discomfort under the right rib cage, but no acute distress, abdomen is distended but soft, he is hemodynamically stable, he is in sinus mechanism, no nausea vomiting or diarrhea. CT of the abdomen and pelvis is pending today's labs have been reviewed, showing white blood cell count of 11.9, hemoglobin of 9, sodium is 133, the rest of the electrolytes were within normal limits, B1 is 25 creatinine is 1.18 The patient is seen today 07/20/2020 in follow-up in the intensive care unit. He is currently sitting up in a chair at the bedside. Awake and alert in no acute distress. This is postoperative day #2, two-vessel coronary artery bypass surgery. He is currently on 2 L/m per nasal cannula maintaining good O2 saturation in the 90s. He did have issues with atrial fibrillation and is currently on Cardizem drip at 10 mg per hour. He did receive IV amiodarone, initiated on by mouth today. 0.9 normal saline at KVO. Chest x-ray reveals removal of mediastinal drains. Right-sided pneumoperitoneum is no longer appreciated. Left-sided chest tube remains in place. Bibasilar patchy atelectasis remains. White count 18.2. Hemoglobin 8.9. Platelet count 99,000. Sodium 127. Potassium 5.0. Creatinine 1.37. He is pulling approximately 6070-4324 ML's on the incentive spirometer. Continued on bronchodilators. Heparin for DVT prophylaxis. Objective - Vital Signs Vital signs: Vital Signs Temp 98.2 F 07/20/20 08:00 Pulse 124 H 07/20/20 09:00 Resp 23 07/20/20 09:00 BP 105/58 07/20/20 09:00 Pulse Ox 98 07/20/20 09:00 Intake & Output 07/19/20 07/20/20 07/20/20 18:59 06:59 18:59 Intake Total 6236.462 1789.599 189.786 Output Total 885 1060 115 Balance 261.109 327.599 74.786 Weight 99.2 kg 100.7 kg Intake: IV 703 276 69 Amiodarone 360 mg In 50 Dextrose 5% in Water 200 ml @ 1 MG/MIN 33.333 mls/ hr IV .Q6H PRN Rx#: [id number] Sodium Chloride 0.9% 1, 520 240 60 000 ml @ 20 mls/hr IV . Q24H [facility] Rx#:[id number] cardiac output 40 pressure bag 93 36 9 Intake, IV Titration 43.109 31.599 120.786 Amount Diltiazem 125 mg In 4.833 116.417 Sodium Chloride 0.9% 100 ml @ Per Protocol IV .Q0M [facility] Rx#:[id number] Insulin Regular 100 unit 43.109 26.766 4.369 In Sodium Chloride 0.9% 100 ml @ Per Protocol IV .Q0M [facility] Rx#:[id number] Oral 400 1080 Output: Chest Tube Drainage 260 130 30 left pleural chest tube 150 130 30 mediastinal chest tube 110 Drainage 15 Right Calf 15 Urine 625 915 85 Other: Voiding Method Indwelling Catheter Indwelling Catheter Indwelling Catheter ABP, PAP, CO, CI - Last Documented Arterial Blood Pressure 125/61 Pulmonary Artery Pressure 33/14 Cardiac Output 6.7 Cardiac Index 3.1 - Exam GENERAL EXAM: Alert, very pleasant, 79-year-old male patient, on 2 L of oxygen, sitting up in the recliner, in the ICU, comfortable in no apparent distress. HEAD: Normocephalic/atraumatic. EYES: Normal reaction of pupils, equal size. Conjunctiva pink, sclera white. NOSE: Clear with pink turbinates. THROAT: No erythema or exudates. NECK: No masses, no JVD, no thyroid enlargement, no adenopathy. CHEST: No chest wall deformity. Symmetrical expansion. Midsternal incision is clean dry and intact, left chest tube remains in place LUNGS: Equal air entry with scattered crackles in the bases. CVS: Regular rate and rhythm, normal S1 and S2, no gallops, no murmurs, no rubs ABDOMEN: Soft, nontender. No hepatosplenomegaly, normal bowel sounds, no guarding or rigidity. EXTREMITIES: No clubbing, no edema, no cyanosis, 2+ pulses and upper and lower extremities. MUSCULOSKELETAL: Muscle strength and tone normal. SPINE: No scoliosis or deformity SKIN: No rashes CENTRAL NERVOUS SYSTEM: No focal deficits, tone is normal in all 4 extremities. PSYCHIATRIC: Alert and oriented -3. Appropriate affect. Intact judgment and insight. - Labs CBC & Chem 7: 07/20/20 04:04 07/20/20 04:04 Labs: Abnormal Lab Results - Last 24 Hours (Table) 07/19/20 07/19/20 07/19/20 Range/Units 11:06 12:13 12:52 WBC (3.8-10.6) k/uL RBC (4.30-5.90) m/uL Hgb (13.0-17.5) gm/dL Hct (39.0-53.0) % Plt Count (150-450) k/uL Neutrophils # (1.3-7.7) k/uL Lymphocytes # (1.0-4.8) k/uL Monocytes # (0-1.0) k/uL Sodium (137-145) mmol/L BUN (9-20) mg/dL Creatinine (0.66-1.25) mg/dL Glucose (74-99) mg/dL POC Glucose (mg/dL) 133 H 108 H 121 H (75-99) mg/dL Calcium (8.4-10.2) mg/dL Total Bilirubin (0.2-1.3) mg/dL AST (17-59) U/L Alkaline Phosphatase (38-126) U/L Total Protein (6.3-8.2) g/dL Albumin (3.5-5.0) g/dL 07/19/20 07/19/20 07/19/20 Range/Units 15:26 17:51 19:08 WBC (3.8-10.6) k/uL RBC (4.30-5.90) m/uL Hgb (13.0-17.5) gm/dL Hct (39.0-53.0) % Plt Count (150-450) k/uL Neutrophils # (1.3-7.7) k/uL Lymphocytes # (1.0-4.8) k/uL Monocytes # (0-1.0) k/uL Sodium (137-145) mmol/L BUN (9-20) mg/dL Creatinine (0.66-1.25) mg/dL Glucose (74-99) mg/dL POC Glucose (mg/dL) 145 H 138 H 121 H (75-99) mg/dL Calcium (8.4-10.2) mg/dL Total Bilirubin (0.2-1.3) mg/dL AST (17-59) U/L Alkaline Phosphatase (38-126) U/L Total Protein (6.3-8.2) g/dL Albumin (3.5-5.0) g/dL 07/19/20 07/19/20 07/20/20 Range/Units 21:13 23:21 01:06 WBC (3.8-10.6) k/uL RBC (4.30-5.90) m/uL Hgb (13.0-17.5) gm/dL Hct (39.0-53.0) % Plt Count (150-450) k/uL Neutrophils # (1.3-7.7) k/uL Lymphocytes # (1.0-4.8) k/uL Monocytes # (0-1.0) k/uL Sodium (137-145) mmol/L BUN (9-20) mg/dL Creatinine (0.66-1.25) mg/dL Glucose (74-99) mg/dL POC Glucose (mg/dL) 139 H 134 H 119 H (75-99) mg/dL Calcium (8.4-10.2) mg/dL Total Bilirubin (0.2-1.3) mg/dL AST (17-59) U/L Alkaline Phosphatase (38-126) U/L Total Protein (6.3-8.2) g/dL Albumin (3.5-5.0) g/dL 07/20/20 07/20/20 07/20/20 Range/Units 03:24 04:04 04:04 WBC 18.2 H (3.8-10.6) k/uL RBC 2.69 L (4.30-5.90) m/uL Hgb 8.9 L (13.0-17.5) gm/dL Hct 26.2 L (39.0-53.0) % Plt Count 99 L (150-450) k/uL Neutrophils # 15.9 H (1.3-7.7) k/uL Lymphocytes # 0.8 L (1.0-4.8) k/uL Monocytes # 1.2 H (0-1.0) k/uL Sodium 127 L (137-145) mmol/L BUN 25 H (9-20) mg/dL Creatinine 1.37 H (0.66-1.25) mg/dL Glucose 128 H (74-99) mg/dL POC Glucose (mg/dL) 109 H (75-99) mg/dL Calcium 8.2 L (8.4-10.2) mg/dL Total Bilirubin 2.8 H (0.2-1.3) mg/dL AST 88 H (17-59) U/L Alkaline Phosphatase 24 L (38-126) U/L Total Protein 5.2 L (6.3-8.2) g/dL Albumin 3.3 L (3.5-5.0) g/dL 07/20/20 07/20/20 07/20/20 Range/Units 06:35 08:21 09:58 WBC (3.8-10.6) k/uL RBC (4.30-5.90) m/uL Hgb (13.0-17.5) gm/dL Hct (39.0-53.0) % Plt Count (150-450) k/uL Neutrophils # (1.3-7.7) k/uL Lymphocytes # (1.0-4.8) k/uL Monocytes # (0-1.0) k/uL Sodium (137-145) mmol/L BUN (9-20) mg/dL Creatinine (0.66-1.25) mg/dL Glucose (74-99) mg/dL POC Glucose (mg/dL) 178 H 162 H 170 H (75-99) mg/dL Calcium (8.4-10.2) mg/dL Total Bilirubin (0.2-1.3) mg/dL AST (17-59) U/L Alkaline Phosphatase (38-126) U/L Total Protein (6.3-8.2) g/dL Albumin (3.5-5.0) g/dL Assessment and Plan Assessment: 1 Symptomatic coronary artery disease, status post two-vessel coronary artery bypass grafting with PABLO to the LAD, SVG to the PDA, postoperative day #2 2 Postoperative atrial fibrillation with rapid ventricular response requiring amiodarone and Cardizem 3 History of coronary artery disease with previous stent placement 4 Routine postoperative ventilator management, and patient was successfully extubated on postoperative day 0 and under 6 hours of OR accident 5 History of hyperlipidemia 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 Meyers Chest x-ray and labs reviewed Encouraged regarding the increased use the incentive spirometer and cough and deep breathing exercises Increase his activity as tolerated Titrate down the FiO2 as tolerated Continue bronchodilators We will continue to follow and make further recommendations based on his clinical status I, the cosigning physician, performed a history & physical examination of the patient. Lungs sounds with basilar crackles. Maintaining good O2 saturations in the 90s on 2 L/m per nasal cannula. I discussed the assessment and plan of care with my nurse practitioner, Olga Marin. I attest to the above note as dictated by her.
[2020-07-20] MEDS ORDERED: METOPROLOL TARTRATE 25 MG TAB PO STA (10:48)
[2020-07-20] MEDS ORDERED: FUROSEMIDE 10 MG/ML 2 ML VIAL IV ONE (11:00)
--- NOTE | 2020-07-20 11:16 | P.PN ---
Subjective Progress Note Date: 07/20/20 This is a pleasant 79-year-old gentleman with documented history of nicotine dependence, diabetes, hypertension, hyperlipidemia, family history of premature coronary artery disease, peripheral vascular disease, coronary artery disease with prior RCA stenting who underwent a cardiac catheterization by Dr. Mandujano on June 21. Patient was found to have heavily calcified coronary arteries with severe triple-vessel coronary artery disease. Patient underwent double coronary artery bypass grafting surgery using a PABLO to the LAD, reverse saphenous vein graft from the aorta to the posterior descending artery yesterday. The patient was seen and examined this morning in the intensive care unit, he is extubated sitting up in the chair at bedside. Denies any chest discomfort but states that he does have some mild discomfort at the site of the chest tubes, he he has a mediastinotomy and a left pleural chest tube in place. He denies any abdominal discomfort this morning. The chest x-ray this morning did show evidence of a pneumoperitoneum. Patient is scheduled today to undergo a CAT scan of the abdomen. Blood pressure 106/50, heart rate in the 70s, respirations 22. He is afebrile, cardiac index 3.1. Remaining in a normal sinus rhythm this morning, on amiodarone. 07/20/2020 Patient was seen and examined in the intensive care unit this morning, sitting up in the chair bedside. Went into atrial fibrillation with rapid ventricular response through the night last night and this morning continues to be in A. fib. He was already on anti-oh, he was given additional amiodarone last night as well as Lanoxin, continues at this time to be on a Cardizem drip as 10 mg per hour. Patient is complaining of some discomfort at the left sided chest tube area, overall just not feeling well today. The right-sided pneumoperitoneum is no longer appreciated today. Blood pressure 105/60 with a heart rate in the 1 teens, 98% on 2 L of oxygen. White blood cell count 18.2, hemoglobin 8.9, platelet count 99. Sodium 127, potassium 5.0, BUN 25, creatinine 1.3. Objective - Vital Signs Vital signs: Vital Signs Temp 98.2 F 07/20/20 08:00 Pulse 124 H 07/20/20 09:00 Resp 23 07/20/20 09:00 BP 105/58 12/03/20 09:00 Pulse Ox 98 07/20/20 09:00 Intake & Output 07/19/20 07/20/20 07/20/20 18:59 06:59 18:59 Intake Total 4644.923 0883.599 189.786 Output Total 885 1060 115 Balance 261.109 327.599 74.786 Weight 99.2 kg 100.7 kg Intake: IV 703 276 69 Amiodarone 360 mg In 50 Dextrose 5% in Water 200 ml @ 1 MG/MIN 33.333 mls/ hr IV .Q6H PRN Rx#: [id number] Sodium Chloride 0.9% 1, 520 240 60 000 ml @ 20 mls/hr IV . Q24H [facility] Rx#:[id number] cardiac output 40 pressure bag 93 36 9 Intake, IV Titration 43.109 31.599 120.786 Amount Diltiazem 125 mg In 4.833 116.417 Sodium Chloride 0.9% 100 ml @ Per Protocol IV .Q0M [facility] Rx#:[id number] Insulin Regular 100 unit 43.109 26.766 4.369 In Sodium Chloride 0.9% 100 ml @ Per Protocol IV .Q0M [facility] Rx#:[id number] Oral 400 1080 Output: Chest Tube Drainage 260 130 30 left pleural chest tube 150 130 30 mediastinal chest tube 110 Drainage 15 Right Calf 15 Urine 625 915 85 Other: Voiding Method Indwelling Catheter Indwelling Catheter Indwelling Catheter ABP, PAP, CO, CI - Last Documented Arterial Blood Pressure 125/61 Pulmonary Artery Pressure 33/14 Cardiac Output 6.7 Cardiac Index 3.1 - Exam GENERAL EXAM: Alert, very pleasant, 79-year-old male patient, on 2 L of oxygen, sitting up in the recliner, in the ICU, comfortable in no apparent distress. HEAD: Normocephalic/atraumatic. EYES: Normal reaction of pupils, equal size. Conjunctiva pink, sclera white. NOSE: Clear with pink turbinates. THROAT: No erythema or exudates. NECK: No masses, no JVD, no thyroid enlargement, no adenopathy. CHEST: No chest wall deformity. Symmetrical expansion. Midsternal incision is clean dry and intact, left chest tube remains in place LUNGS: Equal air entry with scattered crackles in the bases. CVS: Regular rate and rhythm, normal S1 and S2, no gallops, no murmurs, no rubs ABDOMEN: Soft, nontender. No hepatosplenomegaly, normal bowel sounds, no guarding or rigidity. EXTREMITIES: No clubbing, no edema, no cyanosis, 2+ pulses and upper and lower extremities. MUSCULOSKELETAL: Muscle strength and tone normal. SPINE: No scoliosis or deformity SKIN: No rashes CENTRAL NERVOUS SYSTEM: No focal deficits, tone is normal in all 4 extremities. PSYCHIATRIC: Alert and oriented -3. Appropriate affect. Intact judgment and insight. - Labs CBC & Chem 7: 07/20/20 04:04 07/20/20 04:04 Labs: Abnormal Lab Results - Last 24 Hours (Table) 07/19/20 07/19/20 07/19/20 Range/Units 11:06 12:13 12:52 WBC (3.8-10.6) k/uL RBC (4.30-5.90) m/uL Hgb (13.0-17.5) gm/dL Hct (39.0-53.0) % Plt Count (150-450) k/uL Neutrophils # (1.3-7.7) k/uL Lymphocytes # (1.0-4.8) k/uL Monocytes # (0-1.0) k/uL Sodium (137-145) mmol/L BUN (9-20) mg/dL Creatinine (0.66-1.25) mg/dL Glucose (74-99) mg/dL POC Glucose (mg/dL) 133 H 108 H 121 H (75-99) mg/dL Calcium (8.4-10.2) mg/dL Total Bilirubin (0.2-1.3) mg/dL AST (17-59) U/L Alkaline Phosphatase (38-126) U/L Total Protein (6.3-8.2) g/dL Albumin (3.5-5.0) g/dL 07/19/20 07/19/20 07/19/20 Range/Units 15:26 17:51 19:08 WBC (3.8-10.6) k/uL RBC (4.30-5.90) m/uL Hgb (13.0-17.5) gm/dL Hct (39.0-53.0) % Plt Count (150-450) k/uL Neutrophils # (1.3-7.7) k/uL Lymphocytes # (1.0-4.8) k/uL Monocytes # (0-1.0) k/uL Sodium (137-145) mmol/L BUN (9-20) mg/dL Creatinine (0.66-1.25) mg/dL Glucose (74-99) mg/dL POC Glucose (mg/dL) 145 H 138 H 121 H (75-99) mg/dL Calcium (8.4-10.2) mg/dL Total Bilirubin (0.2-1.3) mg/dL AST (17-59) U/L Alkaline Phosphatase (38-126) U/L Total Protein (6.3-8.2) g/dL Albumin (3.5-5.0) g/dL 07/19/20 07/19/20 07/20/20 Range/Units 21:13 23:21 01:06 WBC (3.8-10.6) k/uL RBC (4.30-5.90) m/uL Hgb (13.0-17.5) gm/dL Hct (39.0-53.0) % Plt Count (150-450) k/uL Neutrophils # (1.3-7.7) k/uL Lymphocytes # (1.0-4.8) k/uL Monocytes # (0-1.0) k/uL Sodium (137-145) mmol/L BUN (9-20) mg/dL Creatinine (0.66-1.25) mg/dL Glucose (74-99) mg/dL POC Glucose (mg/dL) 139 H 134 H 119 H (75-99) mg/dL Calcium (8.4-10.2) mg/dL Total Bilirubin (0.2-1.3) mg/dL AST (17-59) U/L Alkaline Phosphatase (38-126) U/L Total Protein (6.3-8.2) g/dL Albumin (3.5-5.0) g/dL 07/20/20 07/20/20 07/20/20 Range/Units 03:24 04:04 04:04 WBC 18.2 H (3.8-10.6) k/uL RBC 2.69 L (4.30-5.90) m/uL Hgb 8.9 L (13.0-17.5) gm/dL Hct 26.2 L (39.0-53.0) % Plt Count 99 L (150-450) k/uL Neutrophils # 15.9 H (1.3-7.7) k/uL Lymphocytes # 0.8 L (1.0-4.8) k/uL Monocytes # 1.2 H (0-1.0) k/uL Sodium 127 L (137-145) mmol/L BUN 25 H (9-20) mg/dL Creatinine 1.37 H (0.66-1.25) mg/dL Glucose 128 H (74-99) mg/dL POC Glucose (mg/dL) 109 H (75-99) mg/dL Calcium 8.2 L (8.4-10.2) mg/dL Total Bilirubin 2.8 H (0.2-1.3) mg/dL AST 88 H (17-59) U/L Alkaline Phosphatase 24 L (38-126) U/L Total Protein 5.2 L (6.3-8.2) g/dL Albumin 3.3 L (3.5-5.0) g/dL 07/20/20 07/20/20 07/20/20 Range/Units 06:35 08:21 09:58 WBC (3.8-10.6) k/uL RBC (4.30-5.90) m/uL Hgb (13.0-17.5) gm/dL Hct (39.0-53.0) % Plt Count (150-450) k/uL Neutrophils # (1.3-7.7) k/uL Lymphocytes # (1.0-4.8) k/uL Monocytes # (0-1.0) k/uL Sodium (137-145) mmol/L BUN (9-20) mg/dL Creatinine (0.66-1.25) mg/dL Glucose (74-99) mg/dL POC Glucose (mg/dL) 178 H 162 H 170 H (75-99) mg/dL Calcium (8.4-10.2) mg/dL Total Bilirubin (0.2-1.3) mg/dL AST (17-59) U/L Alkaline Phosphatase (38-126) U/L Total Protein (6.3-8.2) g/dL Albumin (3.5-5.0) g/dL Assessment and Plan Plan: Assessment and plan #1 status post two-vessel bypass grafting, postoperative day #2 #2 known history of coronary artery disease with prior RCA stenting in 2002 #3 hyperlipidemia #4 hypertension #5 diabetes #6 hypothyroidism #7 chronic kidney disease #8 history of nicotine dependence #9 moderately severe chronic obstructive pulmonary disease #10 paroxysmal atrial fibrillation Plan Patient has been encouraged regarding the use of his incentive spirometer. He may have a removal of the left chest tube soon. Continue IV Cardizem at this time. DNP note has been reviewed, I agree with a documented findings and plan of care. Patient was seen and examined.
--- NOTE | 2020-07-20 11:31 | P.PN ---
Subjective Progress Note Date: 07/20/20 CHIEF COMPLAINT: Status post CABG 2 vessels HISTORY OF PRESENT ILLNESS: Patient is being followed in regards to pneumoperitoneum. I have mentioned the ICU and is sitting at bedside chair. He is postop day #2 status post 2 vessel coronary bypass graft surgery. He apparently had issues with atrial fibrillation and is currently on a Cardizem drip and oral amiodarone. His mediastinal drains were removed. He has minimal pain. Denies any nausea or vomiting. Afebrile. WBC 18.2 creatinine 1.37 Chest x-ray shows removal of mediastinal drains. The previous right-sided pneumoperitoneum is no longer appreciated. Left-sided chest tube. Bibasilar patchy atelectasis remains. PHYSICAL EXAM: VITAL SIGNS: Reviewed. GENERAL: Well-developed in no acute distress. HEENT: No sclera icterus. Extraocular movements grossly intact. Moist buccal mucosa. Head is atraumatic, normocephalic. ABDOMEN: Soft. Mildly distended. Nontender. NEUROLOGIC: Alert and oriented. Cranial nerves II through XII grossly intact. ASSESSMENT: 1. Pneumoperitoneum secondary to chest tube and recent CABG. Pneumoperitoneum no longer present on today's chest x-ray 2. symptomatic triple-vessel coronary artery disease status post 2 vessel coronary bypass grafting surgery 3. History of coronary artery disease with stent placement to the RCA in 2002 4. Hypertension 5. Diabetes mellitus type 2 PLAN: -Encourage incentive spirometer use -Continue supportive care -No surgical intervention planned -Agree with advancing diet to heart healthy carb consistent Physician [employer] note has been reviewed by physician. Signing provider agrees with the documented findings, assessment, and plan of care. Objective - Vital Signs Vital signs: Vital Signs Temp 98.2 F 07/20/20 08:00 Pulse 124 H 07/20/20 09:00 Resp 23 07/20/20 09:00 BP 105/58 07/20/20 09:00 Pulse Ox 98 07/20/20 09:00 Intake & Output 07/19/20 07/20/20 07/20/20 18:59 06:59 18:59 Intake Total 1651.545 8877.599 189.786 Output Total 885 1060 115 Balance 261.109 327.599 74.786 Weight 99.2 kg 100.7 kg Intake: IV 703 276 69 Amiodarone 360 mg In 50 Dextrose 5% in Water 200 ml @ 1 MG/MIN 33.333 mls/ hr IV .Q6H PRN Rx#: [id number] Sodium Chloride 0.9% 1, 520 240 60 000 ml @ 20 mls/hr IV . Q24H [facility] Rx#:[id number] cardiac output 40 pressure bag 93 36 9 Intake, IV Titration 43.109 31.599 120.786 Amount Diltiazem 125 mg In 4.833 116.417 Sodium Chloride 0.9% 100 ml @ Per Protocol IV .Q0M [facility] Rx#:[id number] Insulin Regular 100 unit 43.109 26.766 4.369 In Sodium Chloride 0.9% 100 ml @ Per Protocol IV .Q0M [facility] Rx#:[id number] Oral 400 1080 Output: Chest Tube Drainage 260 130 30 left pleural chest tube 150 130 30 mediastinal chest tube 110 Drainage 15 Right Calf 15 Urine 625 915 85 Other: Voiding Method Indwelling Catheter Indwelling Catheter Indwelling Catheter ABP, PAP, CO, CI - Last Documented Arterial Blood Pressure 125/61 Pulmonary Artery Pressure 33/14 Cardiac Output 6.7 Cardiac Index 3.1 - Labs CBC & Chem 7: 07/20/20 04:04 07/20/20 04:04 Labs: Abnormal Lab Results - Last 24 Hours (Table) 07/19/20 07/19/20 07/19/20 Range/Units 11:06 12:13 12:52 WBC (3.8-10.6) k/uL RBC (4.30-5.90) m/uL Hgb (13.0-17.5) gm/dL Hct (39.0-53.0) % Plt Count (150-450) k/uL Neutrophils # (1.3-7.7) k/uL Lymphocytes # (1.0-4.8) k/uL Monocytes # (0-1.0) k/uL Sodium (137-145) mmol/L BUN (9-20) mg/dL Creatinine (0.66-1.25) mg/dL Glucose (74-99) mg/dL POC Glucose (mg/dL) 133 H 108 H 121 H (75-99) mg/dL Calcium (8.4-10.2) mg/dL Total Bilirubin (0.2-1.3) mg/dL AST (17-59) U/L Alkaline Phosphatase (38-126) U/L Total Protein (6.3-8.2) g/dL Albumin (3.5-5.0) g/dL 07/19/20 07/19/20 07/19/20 Range/Units 15:26 17:51 19:08 WBC (3.8-10.6) k/uL RBC (4.30-5.90) m/uL Hgb (13.0-17.5) gm/dL Hct (39.0-53.0) % Plt Count (150-450) k/uL Neutrophils # (1.3-7.7) k/uL Lymphocytes # (1.0-4.8) k/uL Monocytes # (0-1.0) k/uL Sodium (137-145) mmol/L BUN (9-20) mg/dL Creatinine (0.66-1.25) mg/dL Glucose (74-99) mg/dL POC Glucose (mg/dL) 145 H 138 H 121 H (75-99) mg/dL Calcium (8.4-10.2) mg/dL Total Bilirubin (0.2-1.3) mg/dL AST (17-59) U/L Alkaline Phosphatase (38-126) U/L Total Protein (6.3-8.2) g/dL Albumin (3.5-5.0) g/dL 07/19/20 07/19/20 07/20/20 Range/Units 21:13 23:21 01:06 WBC (3.8-10.6) k/uL RBC (4.30-5.90) m/uL Hgb (13.0-17.5) gm/dL Hct (39.0-53.0) % Plt Count (150-450) k/uL Neutrophils # (1.3-7.7) k/uL Lymphocytes # (1.0-4.8) k/uL Monocytes # (0-1.0) k/uL Sodium (137-145) mmol/L BUN (9-20) mg/dL Creatinine (0.66-1.25) mg/dL Glucose (74-99) mg/dL POC Glucose (mg/dL) 139 H 134 H 119 H (75-99) mg/dL Calcium (8.4-10.2) mg/dL Total Bilirubin (0.2-1.3) mg/dL AST (17-59) U/L Alkaline Phosphatase (38-126) U/L Total Protein (6.3-8.2) g/dL Albumin (3.5-5.0) g/dL 07/20/20 07/20/20 07/20/20 Range/Units 03:24 04:04 04:04 WBC 18.2 H (3.8-10.6) k/uL RBC 2.69 L (4.30-5.90) m/uL Hgb 8.9 L (13.0-17.5) gm/dL Hct 26.2 L (39.0-53.0) % Plt Count 99 L (150-450) k/uL Neutrophils # 15.9 H (1.3-7.7) k/uL Lymphocytes # 0.8 L (1.0-4.8) k/uL Monocytes # 1.2 H (0-1.0) k/uL Sodium 127 L (137-145) mmol/L BUN 25 H (9-20) mg/dL Creatinine 1.37 H (0.66-1.25) mg/dL Glucose 128 H (74-99) mg/dL POC Glucose (mg/dL) 109 H (75-99) mg/dL Calcium 8.2 L (8.4-10.2) mg/dL Total Bilirubin 2.8 H (0.2-1.3) mg/dL AST 88 H (17-59) U/L Alkaline Phosphatase 24 L (38-126) U/L Total Protein 5.2 L (6.3-8.2) g/dL Albumin 3.3 L (3.5-5.0) g/dL 07/20/20 07/20/20 07/20/20 Range/Units 06:35 08:21 09:58 WBC (3.8-10.6) k/uL RBC (4.30-5.90) m/uL Hgb (13.0-17.5) gm/dL Hct (39.0-53.0) % Plt Count (150-450) k/uL Neutrophils # (1.3-7.7) k/uL Lymphocytes # (1.0-4.8) k/uL Monocytes # (0-1.0) k/uL Sodium (137-145) mmol/L BUN (9-20) mg/dL Creatinine (0.66-1.25) mg/dL Glucose (74-99) mg/dL POC Glucose (mg/dL) 178 H 162 H 170 H (75-99) mg/dL Calcium (8.4-10.2) mg/dL Total Bilirubin (0.2-1.3) mg/dL AST (17-59) U/L Alkaline Phosphatase (38-126) U/L Total Protein (6.3-8.2) g/dL Albumin (3.5-5.0) g/dL
--- NOTE | 2020-07-20 11:38 | P.PN ---
Subjective Progress Note Date: 07/20/20 Principal diagnosis: CABG 79 yo male with CAD, HTN, DM 2 well controlled on metformin with last A1C 5.2, and hypothyroidism after partial thyroidectomy who underwent a 2 vessel CABG on 07/18/2020. He arrived to the ICU in typical fashion. He developed some air under the diaphragm on 07/[address] scan confirmed air with no definitive cause. 07/20 When seen he was sitting up in the chair bedside. Went into atrial fibrillation with rapid ventricular response through the night last night and this morning continues to be in A. fib. Started on Cardizem drip as 10 mg per hour. Patient is complaining of some discomfort at the left sided chest tube area, overall just not feeling well today. The right-sided pneumoperitoneum is no longer appreciated today. Objective - Vital Signs Vital signs: Vital Signs Temp 98.2 F 07/20/20 08:00 Pulse 86 07/20/20 11:24 Resp 23 07/20/20 09:00 BP 105/58 07/20/20 09:00 Pulse Ox 98 07/20/20 09:00 Intake & Output 07/19/20 07/20/20 07/20/20 18:59 06:59 18:59 Intake Total 0703.296 1317.599 189.786 Output Total 885 1060 115 Balance 261.109 327.599 74.786 Weight 99.2 kg 100.7 kg Intake: IV 703 276 69 Amiodarone 360 mg In 50 Dextrose 5% in Water 200 ml @ 1 MG/MIN 33.333 mls/ hr IV .Q6H PRN Rx#: [id number] Sodium Chloride 0.9% 1, 520 240 60 000 ml @ 20 mls/hr IV . Q24H [facility] Rx#:[id number] cardiac output 40 pressure bag 93 36 9 Intake, IV Titration 43.109 31.599 120.786 Amount Diltiazem 125 mg In 4.833 116.417 Sodium Chloride 0.9% 100 ml @ Per Protocol IV .Q0M [facility] Rx#:[id number] Insulin Regular 100 unit 43.109 26.766 4.369 In Sodium Chloride 0.9% 100 ml @ Per Protocol IV .Q0M [facility] Rx#:[id number] Oral 400 1080 Output: Chest Tube Drainage 260 130 30 left pleural chest tube 150 130 30 mediastinal chest tube 110 Drainage 15 Right Calf 15 Urine 625 915 85 Other: Voiding Method Indwelling Catheter Indwelling Catheter Indwelling Catheter ABP, PAP, CO, CI - Last Documented Arterial Blood Pressure 125/61 Pulmonary Artery Pressure 33/14 Cardiac Output 6.7 Cardiac Index 3.1 - Exam Patient seen and examined at bedside. General: non toxic, moderate distress secondary to pain, appears at stated age Derm: warm, dry Head: atraumatic, normocephalic, symmetric Eyes: EOMI, no lid lag, anicteric sclera Mouth: no lip lesion, mucus membranes moist Cardiovascular: S1S2 reg, no murmur, positive posterior tibial pulse bilateral, Lungs: CTA bilateral, no rhonchi, no rales , no accessory muscle use, chest tube and mediastinal tubes in place Abdominal: soft, + tympanic, tender to palpation diffusely no guarding, no appreciable organomegaly Ext: no gross muscle atrophy, trace edema, no contractures Neuro: CN II-XI grossly intact, no focal neuro deficits Psych: Alert, oriented, appropriate affect - Labs CBC & Chem 7: 07/20/20 04:04 07/20/20 04:04 Labs: Abnormal Lab Results - Last 24 Hours (Table) 07/19/20 07/19/20 07/19/20 Range/Units 11:06 12:13 12:52 WBC (3.8-10.6) k/uL RBC (4.30-5.90) m/uL Hgb (13.0-17.5) gm/dL Hct (39.0-53.0) % Plt Count (150-450) k/uL Neutrophils # (1.3-7.7) k/uL Lymphocytes # (1.0-4.8) k/uL Monocytes # (0-1.0) k/uL Sodium (137-145) mmol/L BUN (9-20) mg/dL Creatinine (0.66-1.25) mg/dL Glucose (74-99) mg/dL POC Glucose (mg/dL) 133 H 108 H 121 H (75-99) mg/dL Calcium (8.4-10.2) mg/dL Total Bilirubin (0.2-1.3) mg/dL AST (17-59) U/L Alkaline Phosphatase (38-126) U/L Total Protein (6.3-8.2) g/dL Albumin (3.5-5.0) g/dL 07/19/20 07/19/20 07/19/20 Range/Units 15:26 17:51 19:08 WBC (3.8-10.6) k/uL RBC (4.30-5.90) m/uL Hgb (13.0-17.5) gm/dL Hct (39.0-53.0) % Plt Count (150-450) k/uL Neutrophils # (1.3-7.7) k/uL Lymphocytes # (1.0-4.8) k/uL Monocytes # (0-1.0) k/uL Sodium (137-145) mmol/L BUN (9-20) mg/dL Creatinine (0.66-1.25) mg/dL Glucose (74-99) mg/dL POC Glucose (mg/dL) 145 H 138 H 121 H (75-99) mg/dL Calcium (8.4-10.2) mg/dL Total Bilirubin (0.2-1.3) mg/dL AST (17-59) U/L Alkaline Phosphatase (38-126) U/L Total Protein (6.3-8.2) g/dL Albumin (3.5-5.0) g/dL 07/19/20 07/19/20 07/20/20 Range/Units 21:13 23:21 01:06 WBC (3.8-10.6) k/uL RBC (4.30-5.90) m/uL Hgb (13.0-17.5) gm/dL Hct (39.0-53.0) % Plt Count (150-450) k/uL Neutrophils # (1.3-7.7) k/uL Lymphocytes # (1.0-4.8) k/uL Monocytes # (0-1.0) k/uL Sodium (137-145) mmol/L BUN (9-20) mg/dL Creatinine (0.66-1.25) mg/dL Glucose (74-99) mg/dL POC Glucose (mg/dL) 139 H 134 H 119 H (75-99) mg/dL Calcium (8.4-10.2) mg/dL Total Bilirubin (0.2-1.3) mg/dL AST (17-59) U/L Alkaline Phosphatase (38-126) U/L Total Protein (6.3-8.2) g/dL Albumin (3.5-5.0) g/dL 07/20/20 07/20/20 07/20/20 Range/Units 03:24 04:04 04:04 WBC 18.2 H (3.8-10.6) k/uL RBC 2.69 L (4.30-5.90) m/uL Hgb 8.9 L (13.0-17.5) gm/dL Hct 26.2 L (39.0-53.0) % Plt Count 99 L (150-450) k/uL Neutrophils # 15.9 H (1.3-7.7) k/uL Lymphocytes # 0.8 L (1.0-4.8) k/uL Monocytes # 1.2 H (0-1.0) k/uL Sodium 127 L (137-145) mmol/L BUN 25 H (9-20) mg/dL Creatinine 1.37 H (0.66-1.25) mg/dL Glucose 128 H (74-99) mg/dL POC Glucose (mg/dL) 109 H (75-99) mg/dL Calcium 8.2 L (8.4-10.2) mg/dL Total Bilirubin 2.8 H (0.2-1.3) mg/dL AST 88 H (17-59) U/L Alkaline Phosphatase 24 L (38-126) U/L Total Protein 5.2 L (6.3-8.2) g/dL Albumin 3.3 L (3.5-5.0) g/dL 07/20/20 07/20/20 07/20/20 Range/Units 06:35 08:21 09:58 WBC (3.8-10.6) k/uL RBC (4.30-5.90) m/uL Hgb (13.0-17.5) gm/dL Hct (39.0-53.0) % Plt Count (150-450) k/uL Neutrophils # (1.3-7.7) k/uL Lymphocytes # (1.0-4.8) k/uL Monocytes # (0-1.0) k/uL Sodium (137-145) mmol/L BUN (9-20) mg/dL Creatinine (0.66-1.25) mg/dL Glucose (74-99) mg/dL POC Glucose (mg/dL) 178 H 162 H 170 H (75-99) mg/dL Calcium (8.4-10.2) mg/dL Total Bilirubin (0.2-1.3) mg/dL AST (17-59) U/L Alkaline Phosphatase (38-126) U/L Total Protein (6.3-8.2) g/dL Albumin (3.5-5.0) g/dL Assessment and Plan Plan: DM 2 - hold metformin - Inulin gtt per protocol - Follow blood sugars closely - A1C from 06/21/2020 5.2, anticipate discharge home back on metformin which may be able to come off in the near future in the outpatient setting. A-fib with RVR On amio and cardizem gtt Heparin s.q Pneumoperitoneum suspect secondary to mediastinal chest tubes -Tube d/melody -Resolved. Acute blood loss anemia and thrombocytopenia, anticipated outcome of surgery - follow CBC - transfuse as indicated COPD - on spiriva and advair at home Coronary artery disease -Status post coronary artery bypass grafting -Cardiothoracic and cardiology following HTN - meds per CT surgery - follow BP CKD stage III - Baseline cr 1.4-1.5 - follow renal function closely after surgery Hypothyroidism status post partial thyroidectomy - synthroid Morbid obesity with BMI 30.5 -Outpatient structured weight loss Chronic: ADDY [facility] Thank you for allowing us to participate in the care of this pleasant patient. Do not hesitate to contact us with questions. Someone can be reached from the [facility] hospitalist group all hours of the day at [phone] or via perfect serve.
[2020-07-20 12:14] LABS: Glucose,Whole Blood 113 mg/dL (75-99)
[2020-07-20 14:22] LABS: Glucose,Whole Blood 190 mg/dL (75-99)
[2020-07-20 16:02] LABS: Glucose,Whole Blood 122 mg/dL (75-99)
[2020-07-20 17:51] LABS: Glucose,Whole Blood 135 mg/dL (75-99)
[2020-07-20] MEDS: INSULIN REGULAR 100 UNIT in SODIUM CHLORIDE 0.9% 100 ML IV SCH (18:57)
[2020-07-20 19:42] LABS: Glucose,Whole Blood 156 mg/dL (75-99)
[2020-07-20] MEDS: SENNOSIDES-DOCUSATE SODIUM 1 EACH TAB PO SCH (20:08)
[2020-07-20] MEDS: METOPROLOL TARTRATE 50 MG TAB PO SCH (20:08)
[2020-07-20 22:07] LABS: Glucose,Whole Blood 136 mg/dL (75-99)
[2020-07-20] MEDS ORDERED: hydrALAZINE HCL 20 MG/ML 1 ML VIAL IVP STA (23:16)
[2020-07-21 00:04] LABS: Glucose,Whole Blood 127 mg/dL (75-99)
[2020-07-21] MEDS: IPRATROPIUM-ALBUTEROL 3 ML NEB INHALATION PRN ×2 (00:18→21:45)
--- NOTE | 2020-07-21 01:04 | XR ---
EXAM: XR Chest, 1 View CLINICAL HISTORY: ITS.REASON XR Reason: increased SOB TECHNIQUE: Frontal view of the chest. COMPARISON: July 20, 2020 FINDINGS: Lungs: There are streaky densities in both lung bases, similar to previous. Pleural space: There is slight blunting of the right costophrenic angle. No pneumothorax. Heart: See below. Mediastinum: Unremarkable. Bones/joints: And multiple sternal wires. The cardiac silhouette is mildly enlarged. Vasculature: Right internal jugular vein introducer in the superior vena cava, unchanged. IMPRESSION: Slight increased bibasilar atelectasis or infiltrates compared to previous. Previous sternotomy with mild cardiomegaly.
[2020-07-21] MEDS: methylPREDNISolone SOD SUCCI 125 MG/2 ML VIAL IV SCH ×4 (01:06→18:22)
[2020-07-21] MEDS: BUDESONIDE 1 MG/2 ML NEBU INHALATION SCH ×4 (01:13→21:45)
[2020-07-21] MEDS: FORMOTEROL FUMARATE 20 MCG/2 ML NEBU INHALATION SCH ×4 (01:13→21:45)
[2020-07-21 02:00] LABS: Glucose,Whole Blood 165 mg/dL (75-99)
[2020-07-21 03:59] LABS: Glucose,Whole Blood 155 mg/dL (75-99)
[2020-07-21 04:11] LABS: Basophils % (A) 0 %; Eosinophils % (A) 0 %; HCT 24.1 % (39.0-53.0); HGB 8.5 gm/dL (13.0-17.5); Lymphocytes # (A) 0.3 k/uL (1.0-4.8); Lymphocytes % (A) 2 %; MCH 34.1 pg (25.0-35.0); MCHC 35.3 g/dL (31.0-37.0); MCV 96.6 fL (80.0-100.0); Mean Platelet Volume 7.9; Monocytes # (A) 0.7 k/uL (0-1.0); Monocytes % (A) 4 %; Neutrophils # (A) 14.5 k/uL (1.3-7.7); Neutrophils % (A) 93 %; Platelet Count 111 k/uL (150-450); Poikilocytosis Slight; RDW 14.1 % (11.5-15.5); WBC 15.7 k/uL (3.8-10.6)
[2020-07-21 04:25] LABS: Albumin 3.1 g/dL (3.5-5.0); Calcium 7.8 mg/dL (8.4-10.2); Potassium 5.1 mmol/L (3.5-5.1); Total Bilirubin 2.8 mg/dL (0.2-1.3); Total Protein 5.1 g/dL (6.3-8.2)
[2020-07-21] MEDS: METOPROLOL TARTRATE 50 MG TAB PO SCH ×2 (05:33→19:38)
[2020-07-21 06:21] LABS: Glucose,Whole Blood 154 mg/dL (75-99)
[2020-07-21] MEDS: LEVOTHYROXINE 50 MCG TAB PO SCH (06:53)
[2020-07-21] MEDS: PANTOPRAZOLE 40 MG TABLET PO SCH (06:54)
[2020-07-21] MEDS: IPRATROPIUM-ALBUTEROL 3 ML NEB INHALATION SCH ×4 (07:50→19:48)
[2020-07-21 08:10] LABS: Glucose,Whole Blood 158 mg/dL (75-99)
[2020-07-21] MEDS: HEPARIN SODIUM,PORCINE 5,000 UNIT/ML 1 ML VIAL SQ SCH ×2 (08:30→16:40)
[2020-07-21] MEDS: bisacodyL 10 MG SUPP RECTAL SCH (08:32)
[2020-07-21] MEDS: ATORVASTATIN 40 MG TAB PO SCH (08:32)
[2020-07-21] MEDS: ASPIRIN 325 MG TAB PO SCH (08:32)
[2020-07-21] MEDS: CLOPIDOGREL 75 MG TAB PO SCH (08:32)
[2020-07-21] MEDS: ACETAMINOPHEN TAB 325 MG TAB PO PRN ×2 (08:32→17:34)
[2020-07-21] MEDS: AMIODARONE 200 MG TAB PO SCH ×2 (08:44→19:38)
[2020-07-21] MEDS: INSULIN ASPART (NovoLOG) 100 UNIT/ML VIAL SQ SCH ×4 (08:55→21:01)
--- NOTE | 2020-07-21 09:17 | P.PN ---
Subjective Progress Note Date: 07/21/20 Principal diagnosis: Symptomatic triple-vessel coronary artery disease, mild left ventricular dysfunction. Previuos medical history of stenting to his right coronary artery in 2002, hypertension, hyperlipidemia, hypothyroid status post partial thyroidectomy, previous tobacco dependence quit smoking 20 years ago, moderate chronic obstructive pulmonary disease with preoperative FEV1 of 56% of predicted value, bullous emphysema, remote history of pneumonia, type 2 diabetes mellitus with a preoperative hemoglobin A1c of 5.2%, chronic kidney disease stage III with a baseline creatinine of 1.4-1.5, family history of premature coronary artery disease with brother having had CABG at less than 50 years old. POD #3 double coronary artery bypass grafting using the left internal mammary artery to left anterior descending coronary artery, reverse greater saphenous vein graft from the aorta to the posterior descending coronary artery. Exclusion of the left atrial appendage using a 35 mm Atriclip, endoscopic harvesting of the right greater saphenous vein from the groin to above the ankle level, graft flow measurement using the [employer] system, intraoperative transesophageal echocardiogram and epi-aortic scanning. Postoperative acute blood loss anemia, expected outcome from hemodilution and cardiopulmonary bypass. Postoperative paroxysmal atrial fibrillation, unexpected but common outcome after open heart surgery. Pneumoperitoneum, unexpected, likely secondary to mediastinal chest tubes The patient is currently sitting up in a recliner in no acute distress. Comp lains of mild incisional type chest pain controlled on current medication regimen, complains of shortness of breath. Converted yesterday to NSR but went back into AF with RVR last night. Converted again this AM to NSR after 2 sec pause. Right internal jugular Cordis remains. Needs encouragement to use incentive spirometry and ambulate. No other new concerns Objective - Vital Signs Vital signs: Vital Signs Temp 97.8 F 07/21/20 04:00 Pulse 84 07/21/20 07:00 Resp 24 07/21/20 07:00 BP 112/82 07/21/20 07:00 Pulse Ox 99 07/21/20 07:00 Intake & Output 07/20/20 07/21/20 07/21/20 18:59 06:59 18:59 Intake Total 955.119 922.481 23 Output Total 695 835 100 Balance 260.119 87.481 -77 Weight 99.4 kg Intake: IV 196 300 23 Sodium Chloride 0.9% 1, 160 240 20 000 ml @ 20 mls/hr IV . Q24H [facility] Rx#:[id number] pressure bag 36 60 3 Intake, IV Titration 159.119 22.481 Amount Diltiazem 125 mg In 154.750 Sodium Chloride 0.9% 100 ml @ Per Protocol IV .Q0M [facility] Rx#:[id number] Insulin Regular 100 unit 4.369 22.481 In Sodium Chloride 0.9% 100 ml @ Per Protocol IV .Q0M [facility] Rx#:[id number] Oral 600 600 Output: Chest Tube Drainage 50 left pleural chest tube 50 Urine 645 835 100 Other: Voiding Method Indwelling Catheter Indwelling Catheter ABP, PAP, CO, CI - Last Documented Arterial Blood Pressure 125/61 Pulmonary Artery Pressure 33/14 Cardiac Output 6.7 Cardiac Index 3.1 - Constitutional General appearance: Present: cooperative, no acute distress - Respiratory Details: Lungs sounds diminished bilaterally in the bases. Respirations even, nonlabored. Currently on 3 L nasal cannula with oxygen saturation 95%. Able to achieve 1000 mL on his incentive spirometry. Strong productive cough. - Cardiovascular Details: S1, S2 present. Regular rate and rhythm, sinus rhythm with heart rate in the 90s on telemetry. Sternum stable. Atrial epicardial pacemaker wires present, grounded. Palpable peripheral pulses bilaterally. Upper extremity trace generalized edema present. Heart hugger in place with patient demonstrating appropriate use. Antiembolism stockings, SCDs present. Right internal jugular Cordis present, CVP 8-10. - Gastrointestinal Gastrointestinal Comment(s): Abdomen soft, tender to palpation, nondistended. Hypoactive bowel sounds p resent. Tolerating minimal diet with some nausea. Denies flatus, positive belching - Genitourinary Genitourinary Comment(s): Villafana present draining clear, yellow urine. Output 30-40 mL per hour overnight, 1280 mL in the last 24 hours - Integumentary Integumentary Comment(s): Skin is warm and dry with evidence of good perfusion. Anterior chest incision well approximated and covered with dry intact dressing. Right lower extremity EVH site well approximated - Neurologic Neurologic: Present: CNII-XII intact - Musculoskeletal Musculoskeletal: Present: strength equal bilaterally - Psychiatric Psychiatric: Present: A&O x's 3, appropriate affect, intact judgment & insight - Allied health notes Allied health notes reviewed: nursing - Labs CBC & Chem 7: 07/21/20 04:00 07/21/20 04:00 Labs: Abnormal Lab Results - Last 24 Hours (Table) 07/20/20 07/20/20 07/20/20 Range/Units 08:21 09:58 12:12 WBC (3.8-10.6) k/uL RBC (4.30-5.90) m/uL Hgb (13.0-17.5) gm/dL Hct (39.0-53.0) % Plt Count (150-450) k/uL Neutrophils # (1.3-7.7) k/uL Lymphocytes # (1.0-4.8) k/uL Sodium (137-145) mmol/L BUN (9-20) mg/dL Creatinine (0.66-1.25) mg/dL Glucose (74-99) mg/dL POC Glucose (mg/dL) 162 H 170 H 113 H (75-99) mg/dL Calcium (8.4-10.2) mg/dL Total Bilirubin (0.2-1.3) mg/dL AST (17-59) U/L ALT (4-49) U/L Alkaline Phosphatase (38-126) U/L Total Protein (6.3-8.2) g/dL Albumin (3.5-5.0) g/dL 07/20/20 07/20/20 07/20/20 Range/Units 14:21 16:01 17:50 WBC (3.8-10.6) k/uL RBC (4.30-5.90) m/uL Hgb (13.0-17.5) gm/dL Hct (39.0-53.0) % Plt Count (150-450) k/uL Neutrophils # (1.3-7.7) k/uL Lymphocytes # (1.0-4.8) k/uL Sodium (137-145) mmol/L BUN (9-20) mg/dL Creatinine (0.66-1.25) mg/dL Glucose (74-99) mg/dL POC Glucose (mg/dL) 190 H 122 H 135 H (75-99) mg/dL Calcium (8.4-10.2) mg/dL Total Bilirubin (0.2-1.3) mg/dL AST (17-59) U/L ALT (4-49) U/L Alkaline Phosphatase (38-126) U/L Total Protein (6.3-8.2) g/dL Albumin (3.5-5.0) g/dL 07/20/20 07/20/20 07/21/20 Range/Units 19:40 22:05 00:03 WBC (3.8-10.6) k/uL RBC (4.30-5.90) m/uL Hgb (13.0-17.5) gm/dL Hct (39.0-53.0) % Plt Count (150-450) k/uL Neutrophils # (1.3-7.7) k/uL Lymphocytes # (1.0-4.8) k/uL Sodium (137-145) mmol/L BUN (9-20) mg/dL Creatinine (0.66-1.25) mg/dL Glucose (74-99) mg/dL POC Glucose (mg/dL) 156 H 136 H 127 H (75-99) mg/dL Calcium (8.4-10.2) mg/dL Total Bilirubin (0.2-1.3) mg/dL AST (17-59) U/L ALT (4-49) U/L Alkaline Phosphatase (38-126) U/L Total Protein (6.3-8.2) g/dL Albumin (3.5-5.0) g/dL 07/21/20 07/21/20 07/21/20 Range/Units 01:58 03:58 04:00 WBC 15.7 H (3.8-10.6) k/uL RBC 2.50 L (4.30-5.90) m/uL Hgb 8.5 L (13.0-17.5) gm/dL Hct 24.1 L (39.0-53.0) % Plt Count 111 L (150-450) k/uL Neutrophils # 14.5 H (1.3-7.7) k/uL Lymphocytes # 0.3 L (1.0-4.8) k/uL Sodium (137-145) mmol/L BUN (9-20) mg/dL Creatinine (0.66-1.25) mg/dL Glucose (74-99) mg/dL POC Glucose (mg/dL) 165 H 155 H (75-99) mg/dL Calcium (8.4-10.2) mg/dL Total Bilirubin (0.2-1.3) mg/dL AST (17-59) U/L ALT (4-49) U/L Alkaline Phosphatase (38-126) U/L Total Protein (6.3-8.2) g/dL Albumin (3.5-5.0) g/dL 07/21/20 07/21/20 Range/Units 04:00 06:19 WBC (3.8-10.6) k/uL RBC (4.30-5.90) m/uL Hgb (13.0-17.5) gm/dL Hct (39.0-53.0) % Plt Count (150-450) k/uL Neutrophils # (1.3-7.7) k/uL Lymphocytes # (1.0-4.8) k/uL Sodium 126 L (137-145) mmol/L BUN 36 H (9-20) mg/dL Creatinine 1.51 H (0.66-1.25) mg/dL Glucose 136 H (74-99) mg/dL POC Glucose (mg/dL) 154 H (75-99) mg/dL Calcium 7.8 L (8.4-10.2) mg/dL Total Bilirubin 2.8 H (0.2-1.3) mg/dL AST 156 H (17-59) U/L ALT 59 H (4-49) U/L Alkaline Phosphatase 27 L (38-126) U/L Total Protein 5.1 L (6.3-8.2) g/dL Albumin 3.1 L (3.5-5.0) g/dL - Imaging and Cardiology Chest x-ray: report reviewed, image reviewed Assessment and Plan Assessment: 1. Symptomatic triple-vessel coronary artery disease, status post 2 vessel CABG 2. Mild left ventricular dysfunction 3. Previuos history of stenting to his right coronary artery in 2002 4. Hypertension 5. Hyperlipidemia 6. Hypothyroid status post partial thyroidectomy 7. Previous tobacco dependence with bullous emphysema 8. Moderate chronic obstructive pulmonary disease with preoperative FEV1 of 56% of predicted value 9. Remote history of pneumonia 10. Type 2 diabetes mellitus with a preoperative hemoglobin A1c of 5.2% 11. Chronic kidney disease stage III with a baseline creatinine of 1.4-1.5 12. Family history of premature coronary artery disease with brother having had CABG at less than 50 years old 13. Postoperative acute blood loss anemia, expected outcome 14. Postoperative paroxysmal atrial fibrillation, unexpected, status post exclusion of the left atrial appendage 15. Pneumoperitoneum, unexpected Plan: 1. Continue aspirin, statin, Plavix, and beta apolinar. Will increase beta apolinar as tolerated 2. Continue amiodarone for afib prophylaxis 3. Wean oxygen as tolerated. Encourage incentive spirometry use 10 times every hour while awake. Bronchodilators per pulmonology management. 4. Increase activity, ambulate minimum 4x daily, out of bed for all meals. PT/OT/cardiac rehab consulted. 5. Will monitor daily labs and chest x-rays. Electrolyte replacement per protocol. Will give 1 gm calcium today 6. GI/DVT prophylaxis. 7. Pain control with current medication regimen. 8. Insulin management per Dr. Polk 9. Dulcolax suppository daily until bowel movement, 1 dose IV reglan today 10. Continue Villafana catheter, cordis for another 24 hours. 11. Strict accurate intake and output, daily weight with stand upscale, not bed scale 12. Keep atrial epicardial pacemaker wires in place and grounded. 13. More recommendations to follow based on patient's clinical course. Time with Patient: Greater than 30
[2020-07-21] MEDS: METOCLOPRAMIDE 5 MG/ML 2 ML VIAL IVP PRN (10:16)
--- NOTE | 2020-07-21 10:17 | P.PN ---
Subjective Progress Note Date: 07/21/20 Principal diagnosis: Coronary artery disease, status post three-vessel bypass grafting 79-year-old white male patient with past medical history of hypertension, hyperlipidemia, moderate to severe COPD with the baseline FEV1 of 56% of predicted who came in on 07/18/2020 for elective two-vessel bypass grafting with PABLO to LAD, and SVG to the PDA. He was seen in the intensive care unit following surgery, patient was successfully weaned and extubated from mechanical ventilator and under 6 hours following his OR exit, is currently awake and alert, sitting in the chair, he is currently on 2 L of oxygen, his pulse ox is 98%, hemodynamically he stable, blood pressure is 106/51, PA pressures 35/11, CVP is 8, no fever or chills, IV fluids including the 0.9 normal saline at a ra te of 30 ML per hour, insulin is 4.5 units per hour, no vasoactive drips. Today's chest x-ray shows a pneumoperitoneum with lucency present underneath the right hemidiaphragm. He has left pleural and mediastinal chest tube, and there has been 500 mL of serosanguineous output from the left pleural and 350 mL from the mediastinal chest tube in the last 24 hours. Is having some mild discomfort under the right rib cage, but no acute distress, abdomen is distended but soft, he is hemodynamically stable, he is in sinus mechanism, no nausea vomiting or diarrhea. CT of the abdomen and pelvis is pending today's labs have been reviewed, showing white blood cell count of 11.9, hemoglobin of 9, sodium is 133, the rest of the electrolytes were within normal limits, B1 is 25 creatinine is 1.18 On 07/21/2020 patient seen in follow-up in the intensive care unit, today is postoperative day 3 status post three-vessel coronary artery bypass grafting, (patient became more short of breath, wheezy, patient has a known history of moderately severe COPD/emphysema, we started him on IV Solu-Medrol, and Pulmicort and Perforomist were added. This morning she remains on 3 L of oxygen his pulse ox is 94-95%, hemodynamically he stable, he just on plan and was seen and rated 20 ML per hour, insulin is a 2.5 units per hour, today's chest x-ray showing slight increased bibasilar atelectasis or infiltrates. He thinks the breathing treatments in the steroids have significantly helped, breathing easier, he is achieving 500-750 on his incentive spirometer, not able to bring up any sputum yet. he is currently sitting up in a chair, in no acute distress, his incisional pain is fairly well-controlled, patient had another episode of A. fib with RVR last night, he is back in sinus rhythm with a controlled rate this morning. He received a dose of Lasix this morning. Chest tubes have been discontinued. Objective - Vital Signs Vital signs: Vital Signs Temp 97.8 F 07/21/20 04:00 Pulse 89 07/21/20 09:00 Resp 31 H 07/21/20 09:00 BP 130/66 07/21/20 09:00 Pulse Ox 94 L 07/21/20 09:00 Intake & Output 07/20/20 07/21/20 07/21/20 18:59 06:59 18:59 Intake Total 955.119 922.481 525.667 Output Total 695 835 240 Balance 260.119 87.481 285.667 Weight 99.4 kg Intake: IV 196 300 69 Sodium Chloride 0.9% 1, 160 240 60 000 ml @ 20 mls/hr IV . Q24H [facility] Rx#:[id number] pressure bag 36 60 9 Intake, IV Titration 159.119 22.481 86.667 Amount Diltiazem 125 mg In 154.750 86.667 Sodium Chloride 0.9% 100 ml @ Per Protocol IV .Q0M [facility] Rx#:[id number] Insulin Regular 100 unit 4.369 22.481 In Sodium Chloride 0.9% 100 ml @ Per Protocol IV .Q0M [facility] Rx#:[id number] Oral 600 600 370 Output: Chest Tube Drainage 50 left pleural chest tube 50 Urine 645 835 240 Other: Voiding Method Indwelling Catheter Indwelling Catheter ABP, PAP, CO, CI - Last Documented Arterial Blood Pressure 125/61 Pulmonary Artery Pressure 33/14 Cardiac Output 6.7 Cardiac Index 3.1 - Exam GENERAL EXAM: Alert, very pleasant, 79-year-old, white male, sitting up in the recliner, 3 L of oxygen pulse ox 94-95%, mildly short of breath with conversation and exertion, otherwise seems to be in no acute distress HEAD: Normocephalic/atraumatic. EYES: Normal reaction of pupils, equal size. Conjunctiva pink, sclera white. NOSE: Clear with pink turbinates. THROAT: No erythema or exudates. NECK: No masses, no JVD, no thyroid enlargement, no adenopathy. CHEST: No chest wall deformity. Symmetrical expansion. Sternal incision is clean dry and intact, chest tube sites clean dry and intact LUNGS: Equal air entry with no crackles, wheeze, rhonchi or dullness. CVS: Regular rate and rhythm, normal S1 and S2, no gallops, no murmurs, no rubs ABDOMEN: Soft, nontender. No hepatosplenomegaly, normal bowel sounds, no guarding or rigidity. EXTREMITIES: No clubbing, no edema, no cyanosis, 2+ pulses and upper and lower extremities. MUSCULOSKELETAL: Muscle strength and tone normal. SPINE: No scoliosis or deformity SKIN: No rashes CENTRAL NERVOUS SYSTEM: Alert and oriented -3. No focal deficits, tone is normal in all 4 extremities. PSYCHIATRIC: Alert and oriented -3. Appropriate affect. Intact judgment and insight. - Labs CBC & Chem 7: 07/21/20 04:00 07/21/20 04:00 Labs: Abnormal Lab Results - Last 24 Hours (Table) 07/20/20 07/20/20 07/20/20 Range/Units 12:12 14:21 16:01 WBC (3.8-10.6) k/uL RBC (4.30-5.90) m/uL Hgb (13.0-17.5) gm/dL Hct (39.0-53.0) % Plt Count (150-450) k/uL Neutrophils # (1.3-7.7) k/uL Lymphocytes # (1.0-4.8) k/uL Sodium (137-145) mmol/L BUN (9-20) mg/dL Creatinine (0.66-1.25) mg/dL Glucose (74-99) mg/dL POC Glucose (mg/dL) 113 H 190 H 122 H (75-99) mg/dL Calcium (8.4-10.2) mg/dL Total Bilirubin (0.2-1.3) mg/dL AST (17-59) U/L ALT (4-49) U/L Alkaline Phosphatase (38-126) U/L Total Protein (6.3-8.2) g/dL Albumin (3.5-5.0) g/dL 07/20/20 07/20/20 07/20/20 Range/Units 17:50 19:40 22:05 WBC (3.8-10.6) k/uL RBC (4.30-5.90) m/uL Hgb (13.0-17.5) gm/dL Hct (39.0-53.0) % Plt Count (150-450) k/uL Neutrophils # (1.3-7.7) k/uL Lymphocytes # (1.0-4.8) k/uL Sodium (137-145) mmol/L BUN (9-20) mg/dL Creatinine (0.66-1.25) mg/dL Glucose (74-99) mg/dL POC Glucose (mg/dL) 135 H 156 H 136 H (75-99) mg/dL Calcium (8.4-10.2) mg/dL Total Bilirubin (0.2-1.3) mg/dL AST (17-59) U/L ALT (4-49) U/L Alkaline Phosphatase (38-126) U/L Total Protein (6.3-8.2) g/dL Albumin (3.5-5.0) g/dL 07/21/20 07/21/20 07/21/20 Range/Units 00:03 01:58 03:58 WBC (3.8-10.6) k/uL RBC (4.30-5.90) m/uL Hgb (13.0-17.5) gm/dL Hct (39.0-53.0) % Plt Count (150-450) k/uL Neutrophils # (1.3-7.7) k/uL Lymphocytes # (1.0-4.8) k/uL Sodium (137-145) mmol/L BUN (9-20) mg/dL Creatinine (0.66-1.25) mg/dL Glucose (74-99) mg/dL POC Glucose (mg/dL) 127 H 165 H 155 H (75-99) mg/dL Calcium (8.4-10.2) mg/dL Total Bilirubin (0.2-1.3) mg/dL AST (17-59) U/L ALT (4-49) U/L Alkaline Phosphatase (38-126) U/L Total Protein (6.3-8.2) g/dL Albumin (3.5-5.0) g/dL 07/21/20 07/21/20 07/21/20 Range/Units 04:00 04:00 06:19 WBC 15.7 H (3.8-10.6) k/uL RBC 2.50 L (4.30-5.90) m/uL Hgb 8.5 L (13.0-17.5) gm/dL Hct 24.1 L (39.0-53.0) % Plt Count 111 L (150-450) k/uL Neutrophils # 14.5 H (1.3-7.7) k/uL Lymphocytes # 0.3 L (1.0-4.8) k/uL Sodium 126 L (137-145) mmol/L BUN 36 H (9-20) mg/dL Creatinine 1.51 H (0.66-1.25) mg/dL Glucose 136 H (74-99) mg/dL POC Glucose (mg/dL) 154 H (75-99) mg/dL Calcium 7.8 L (8.4-10.2) mg/dL Total Bilirubin 2.8 H (0.2-1.3) mg/dL AST 156 H (17-59) U/L ALT 59 H (4-49) U/L Alkaline Phosphatase 27 L (38-126) U/L Total Protein 5.1 L (6.3-8.2) g/dL Albumin 3.1 L (3.5-5.0) g/dL 07/21/20 Range/Units 08:08 WBC (3.8-10.6) k/uL RBC (4.30-5.90) m/uL Hgb (13.0-17.5) gm/dL Hct (39.0-53.0) % Plt Count (150-450) k/uL Neutrophils # (1.3-7.7) k/uL Lymphocytes # (1.0-4.8) k/uL Sodium (137-145) mmol/L BUN (9-20) mg/dL Creatinine (0.66-1.25) mg/dL Glucose (74-99) mg/dL POC Glucose (mg/dL) 158 H (75-99) mg/dL Calcium (8.4-10.2) mg/dL Total Bilirubin (0.2-1.3) mg/dL AST (17-59) U/L ALT (4-49) U/L Alkaline Phosphatase (38-126) U/L Total Protein (6.3-8.2) g/dL Albumin (3.5-5.0) g/dL Assessment and Plan Plan: Assessment: #1. Symptomatic coronary artery disease, status post two-vessel coronary artery bypass grafting with PABLO to the LAD, SVG to the PDA, postoperative day #3 #2. History of coronary artery disease with previous stent placement #3. Routine postoperative ventilator management, and patient was successfully extubated on postoperative day 0 and under 6 hours of OR exit time #4. History of hypertension #5. History of hyperlipidemia #6. Hypothyroidism status post partial thyroidectomy #7. COPD moderate to severe with preop FEV1 of 53% of predicted #8. 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 Chronic kidney disease stage III at baseline #10. Diabetes mellitus type 2 #11. Postoperative acute blood loss anemia, expected outcome of open heart surgery #12. Postoperative paroxysmal A. fib, patient has had 2 episodes of A. fib with RVR in the postoperative period Plan: Continue IV steroids, continue bronchodilators, patient received a dose of Lasix, he is breathing easier today, continue bridging deep breathing and coughing, CXR has been reviewed showing bibasilar atelectasis/infiltrates, vital signs have been stable, anticoagulation control medications and diuretics per CT surgery, we'll continue to closely follow in the intensive care unit. I performed a history & physical examination of the patient and discussed their management with my nurse practitioner, Cheli Kendrick. I reviewed the nurse practitioner's note and agree with the documented findings and plan of care. Lung sounds are positive for diminished throughout the lung valdez. The findings and the impression was discussed with the patient. I attest to the documentation by the nurse practitioner. Time with Patient: Greater than 30
[2020-07-21] MEDS ORDERED: CALCIUM GLUCONATE 1 GM in SODIUM CHLORIDE 0.9% 100 ML IVPB ONE (10:30)
--- NOTE | 2020-07-21 10:35 | P.PN ---
Subjective Progress Note Date: 07/21/20 This is a pleasant 79-year-old gentleman with documented history of nicotine dependence, diabetes, hypertension, hyperlipidemia, family history of premature coronary artery disease, peripheral vascular disease, coronary artery disease with prior RCA stenting who underwent a cardiac catheterization by Dr. Mandujano on June 21. Patient was found to have heavily calcified coronary arteries with severe triple-vessel coronary artery disease. Patient underwent double coronary artery bypass grafting surgery using a PABLO to the LAD, reverse saphenous vein graft from the aorta to the posterior descending artery yesterday. The patient was seen and examined this morning in the intensive care unit, he is extubated sitting up in the chair at bedside. Denies any chest discomfort but states that he does have some mild discomfort at the site of the chest tubes, he he has a mediastinotomy and a left pleural chest tube in place. He denies any abdominal discomfort this morning. The chest x-ray this morning did show evidence of a pneumoperitoneum. Patient is scheduled today to undergo a CAT scan of the abdomen. Blood pressure 106/50, heart rate in the 70s, respirations 22. He is afebrile, cardiac index 3.1. Remaining in a normal sinus rhythm this morning, on amiodarone. 07/20/2020 Patient was seen and examined in the intensive care unit this morning, sitting up in the chair bedside. Went into atrial fibrillation with rapid ventricular response through the night last night and this morning continues to be in A. fib. He was already on anti-oh, he was given additional amiodarone last night as well as Lanoxin, continues at this time to be on a Cardizem drip as 10 mg per hour. Patient is complaining of some discomfort at the left sided chest tube area, overall just not feeling well today. The right-sided pneumoperitoneum is no longer appreciated today. Blood pressure 105/60 with a heart rate in the 1 teens, 98% on 2 L of oxygen. White blood cell count 18.2, hemoglobin 8.9, platelet count 99. Sodium 127, potassium 5.0, BUN 25, creatinine 1.3. 07/21/2020 Patient seen and examined this morning, sitting up in the recliner, he does state overall that he's feeling better, but discomfort he was having from the chest tube is significantly improved. Still complains of shortness of breath and appears to be short of breath. He did have another episode of atrial fibri llation through the night, converted to normal sinus rhythm and remains in normal sinus rhythm this morning. Blood pressure 120/60 with a heart rate in the 80s, 97% on 3 L of oxygen. White blood cell count 15.7, Hemoccult 8.5, platelet count 111. Sodium 126, potassium 5.1, BUN 36, creatinine 1.5. Objective - Vital Signs Vital signs: Vital Signs Temp 97.8 F 07/21/20 04:00 Pulse 80 07/21/20 10:00 Resp 30 H 07/21/20 10:00 BP 129/66 07/21/20 10:00 Pulse Ox 97 07/21/20 10:00 Intake & Output 07/20/20 07/21/20 07/21/20 18:59 06:59 18:59 Intake Total 955.119 922.481 548.667 Output Total 695 835 260 Balance 260.119 87.481 288.667 Weight 99.4 kg Intake: IV 196 300 92 Sodium Chloride 0.9% 1, 160 240 80 000 ml @ 20 mls/hr IV . Q24H [facility] Rx#:[id number] pressure bag 36 60 12 Intake, IV Titration 159.119 22.481 86.667 Amount Diltiazem 125 mg In 154.750 86.667 Sodium Chloride 0.9% 100 ml @ Per Protocol IV .Q0M [facility] Rx#:[id number] Insulin Regular 100 unit 4.369 22.481 In Sodium Chloride 0.9% 100 ml @ Per Protocol IV .Q0M [facility] Rx#:[id number] Oral 600 600 370 Output: Chest Tube Drainage 50 left pleural chest tube 50 Urine 645 835 260 Other: Voiding Method Indwelling Catheter Indwelling Catheter Indwelling Catheter ABP, PAP, CO, CI - Last Documented Arterial Blood Pressure 125/61 Pulmonary Artery Pressure 33/14 Cardiac Output 6.7 Cardiac Index 3.1 - Exam GENERAL EXAM: Alert, very pleasant, 79-year-old male patient, on 2 L of oxygen, sitting up in the recliner, in the ICU, comfortable in no apparent distress. HEAD: Normocephalic/atraumatic. EYES: Normal reaction of pupils, equal size. Conjunctiva pink, sclera white. NOSE: Clear with pink turbinates. THROAT: No erythema or exudates. NECK: No masses, no JVD, no thyroid enlargement, no adenopathy. CHEST: No chest wall deformity. Symmetrical expansion. Midsternal incision is clean dry and intact, left chest tube remains in place LUNGS: Equal air entry with scattered crackles in the bases. Diminished air entry to the bases CVS: Regular rate and rhythm, normal S1 and S2, no gallops, no murmurs, no rubs ABDOMEN: Soft, nontender. No hepatosplenomegaly, normal bowel sounds, no guarding or rigidity. EXTREMITIES: No clubbing, no edema, no cyanosis, 2+ pulses and upper and lower extremities. MUSCULOSKELETAL: Muscle strength and tone normal. SPINE: No scoliosis or deformity SKIN: No rashes CENTRAL NERVOUS SYSTEM: No focal deficits, tone is normal in all 4 extremities. PSYCHIATRIC: Alert and oriented -3. Appropriate affect. Intact judgment and insight. - Labs CBC & Chem 7: 07/21/20 04:00 07/21/20 04:00 Labs: Abnormal Lab Results - Last 24 Hours (Table) 07/20/20 07/20/20 07/20/20 Range/Units 12:12 14:21 16:01 WBC (3.8-10.6) k/uL RBC (4.30-5.90) m/uL Hgb (13.0-17.5) gm/dL Hct (39.0-53.0) % Plt Count (150-450) k/uL Neutrophils # (1.3-7.7) k/uL Lymphocytes # (1.0-4.8) k/uL Sodium (137-145) mmol/L BUN (9-20) mg/dL Creatinine (0.66-1.25) mg/dL Glucose (74-99) mg/dL POC Glucose (mg/dL) 113 H 190 H 122 H (75-99) mg/dL Calcium (8.4-10.2) mg/dL Total Bilirubin (0.2-1.3) mg/dL AST (17-59) U/L ALT (4-49) U/L Alkaline Phosphatase (38-126) U/L Total Protein (6.3-8.2) g/dL Albumin (3.5-5.0) g/dL 07/20/20 07/20/20 07/20/20 Range/Units 17:50 19:40 22:05 WBC (3.8-10.6) k/uL RBC (4.30-5.90) m/uL Hgb (13.0-17.5) gm/dL Hct (39.0-53.0) % Plt Count (150-450) k/uL Neutrophils # (1.3-7.7) k/uL Lymphocytes # (1.0-4.8) k/uL Sodium (137-145) mmol/L BUN (9-20) mg/dL Creatinine (0.66-1.25) mg/dL Glucose (74-99) mg/dL POC Glucose (mg/dL) 135 H 156 H 136 H (75-99) mg/dL Calcium (8.4-10.2) mg/dL Total Bilirubin (0.2-1.3) mg/dL AST (17-59) U/L ALT (4-49) U/L Alkaline Phosphatase (38-126) U/L Total Protein (6.3-8.2) g/dL Albumin (3.5-5.0) g/dL 07/21/20 07/21/20 07/21/20 Range/Units 00:03 01:58 03:58 WBC (3.8-10.6) k/uL RBC (4.30-5.90) m/uL Hgb (13.0-17.5) gm/dL Hct (39.0-53.0) % Plt Count (150-450) k/uL Neutrophils # (1.3-7.7) k/uL Lymphocytes # (1.0-4.8) k/uL Sodium (137-145) mmol/L BUN (9-20) mg/dL Creatinine (0.66-1.25) mg/dL Glucose (74-99) mg/dL POC Glucose (mg/dL) 127 H 165 H 155 H (75-99) mg/dL Calcium (8.4-10.2) mg/dL Total Bilirubin (0.2-1.3) mg/dL AST (17-59) U/L ALT (4-49) U/L Alkaline Phosphatase (38-126) U/L Total Protein (6.3-8.2) g/dL Albumin (3.5-5.0) g/dL 07/21/20 07/21/20 07/21/20 Range/Units 04:00 04:00 06:19 WBC 15.7 H (3.8-10.6) k/uL RBC 2.50 L (4.30-5.90) m/uL Hgb 8.5 L (13.0-17.5) gm/dL Hct 24.1 L (39.0-53.0) % Plt Count 111 L (150-450) k/uL Neutrophils # 14.5 H (1.3-7.7) k/uL Lymphocytes # 0.3 L (1.0-4.8) k/uL Sodium 126 L (137-145) mmol/L BUN 36 H (9-20) mg/dL Creatinine 1.51 H (0.66-1.25) mg/dL Glucose 136 H (74-99) mg/dL POC Glucose (mg/dL) 154 H (75-99) mg/dL Calcium 7.8 L (8.4-10.2) mg/dL Total Bilirubin 2.8 H (0.2-1.3) mg/dL AST 156 H (17-59) U/L ALT 59 H (4-49) U/L Alkaline Phosphatase 27 L (38-126) U/L Total Protein 5.1 L (6.3-8.2) g/dL Albumin 3.1 L (3.5-5.0) g/dL 07/21/20 Range/Units 08:08 WBC (3.8-10.6) k/uL RBC (4.30-5.90) m/uL Hgb (13.0-17.5) gm/dL Hct (39.0-53.0) % Plt Count (150-450) k/uL Neutrophils # (1.3-7.7) k/uL Lymphocytes # (1.0-4.8) k/uL Sodium (137-145) mmol/L BUN (9-20) mg/dL Creatinine (0.66-1.25) mg/dL Glucose (74-99) mg/dL POC Glucose (mg/dL) 158 H (75-99) mg/dL Calcium (8.4-10.2) mg/dL Total Bilirubin (0.2-1.3) mg/dL AST (17-59) U/L ALT (4-49) U/L Alkaline Phosphatase (38-126) U/L Total Protein (6.3-8.2) g/dL Albumin (3.5-5.0) g/dL Assessment and Plan Plan: Assessment and plan #1 status post two-vessel bypass grafting, postoperative day #2 #2 known history of coronary artery disease with prior RCA stenting in 2002 #3 hyperlipidemia #4 hypertension #5 diabetes #6 hypothyroidism #7 chronic kidney disease #8 history of nicotine dependence #9 moderately severe chronic obstructive pulmonary disease #10 paroxysmal atrial fibrillation Plan Patient has been encouraged regarding the use of his incentive spirometer. Continue current medications. DNP note has been reviewed, I agree with a documented findings and plan of care. Patient was seen and examined.
[2020-07-21 12:34] LABS: Glucose,Whole Blood 176 mg/dL (75-99)
--- NOTE | 2020-07-21 12:35 | P.PN ---
Subjective Progress Note Date: 07/21/20 Principal diagnosis: CABG Patient is feeling short of breath. He converted back to normal sinus rhythm yesterday but last night he had another episode of A. fib. Currently is in sinus rhythm. No significant chest pain, no dizziness Objective - Vital Signs Vital signs: Vital Signs Temp 97.8 F 07/21/20 04:00 Pulse 86 07/21/20 11:43 Resp 30 H 07/21/20 10:40 BP 129/66 07/21/20 10:00 Pulse Ox 97 07/21/20 10:00 Intake & Output 07/20/20 07/21/20 07/21/20 18:59 06:59 18:59 Intake Total 955.119 922.481 548.667 Output Total 695 835 260 Balance 260.119 87.481 288.667 Weight 99.4 kg Intake: IV 196 300 92 Sodium Chloride 0.9% 1, 160 240 80 000 ml @ 20 mls/hr IV . Q24H [facility] Rx#:[id number] pressure bag 36 60 12 Intake, IV Titration 159.119 22.481 86.667 Amount Diltiazem 125 mg In 154.750 86.667 Sodium Chloride 0.9% 100 ml @ Per Protocol IV .Q0M [facility] Rx#:[id number] Insulin Regular 100 unit 4.369 22.481 In Sodium Chloride 0.9% 100 ml @ Per Protocol IV .Q0M [facility] Rx#:[id number] Oral 600 600 370 Output: Chest Tube Drainage 50 left pleural chest tube 50 Urine 645 835 260 Other: Voiding Method Indwelling Catheter Indwelling Catheter Indwelling Catheter ABP, PAP, CO, CI - Last Documented Arterial Blood Pressure 125/61 Pulmonary Artery Pressure 33/14 Cardiac Output 6.7 Cardiac Index 3.1 - Exam Patient seen and examined at bedside. General: non toxic, moderate distress secondary to pain, appears at stated age Derm: warm, dry Head: atraumatic, normocephalic, symmetric Eyes: EOMI, no lid lag, anicteric sclera Mouth: no lip lesion, mucus membranes moist Cardiovascular: S1S2 reg, no murmur, positive posterior tibial pulse bilateral, Lungs: CTA bilateral, no rhonchi, no rales , no accessory muscle use, chest tube and mediastinal tubes in place Abdominal: soft, + tympanic, tender to palpation diffusely no guarding, no appreciable organomegaly Ext: no gross muscle atrophy, trace edema, no contractures Neuro: CN II-XI grossly intact, no focal neuro deficits Psych: Alert, oriented, appropriate affect - Labs CBC & Chem 7: 07/21/20 04:00 07/21/20 04:00 Labs: Abnormal Lab Results - Last 24 Hours (Table) 07/20/20 07/20/20 07/20/20 Range/Units 14:21 16:01 17:50 WBC (3.8-10.6) k/uL RBC (4.30-5.90) m/uL Hgb (13.0-17.5) gm/dL Hct (39.0-53.0) % Plt Count (150-450) k/uL Neutrophils # (1.3-7.7) k/uL Lymphocytes # (1.0-4.8) k/uL Sodium (137-145) mmol/L BUN (9-20) mg/dL Creatinine (0.66-1.25) mg/dL Glucose (74-99) mg/dL POC Glucose (mg/dL) 190 H 122 H 135 H (75-99) mg/dL Calcium (8.4-10.2) mg/dL Total Bilirubin (0.2-1.3) mg/dL AST (17-59) U/L ALT (4-49) U/L Alkaline Phosphatase (38-126) U/L Total Protein (6.3-8.2) g/dL Albumin (3.5-5.0) g/dL 07/20/20 07/20/20 07/21/20 Range/Units 19:40 22:05 00:03 WBC (3.8-10.6) k/uL RBC (4.30-5.90) m/uL Hgb (13.0-17.5) gm/dL Hct (39.0-53.0) % Plt Count (150-450) k/uL Neutrophils # (1.3-7.7) k/uL Lymphocytes # (1.0-4.8) k/uL Sodium (137-145) mmol/L BUN (9-20) mg/dL Creatinine (0.66-1.25) mg/dL Glucose (74-99) mg/dL POC Glucose (mg/dL) 156 H 136 H 127 H (75-99) mg/dL Calcium (8.4-10.2) mg/dL Total Bilirubin (0.2-1.3) mg/dL AST (17-59) U/L ALT (4-49) U/L Alkaline Phosphatase (38-126) U/L Total Protein (6.3-8.2) g/dL Albumin (3.5-5.0) g/dL 07/21/20 07/21/20 07/21/20 Range/Units 01:58 03:58 04:00 WBC 15.7 H (3.8-10.6) k/uL RBC 2.50 L (4.30-5.90) m/uL Hgb 8.5 L (13.0-17.5) gm/dL Hct 24.1 L (39.0-53.0) % Plt Count 111 L (150-450) k/uL Neutrophils # 14.5 H (1.3-7.7) k/uL Lymphocytes # 0.3 L (1.0-4.8) k/uL Sodium (137-145) mmol/L BUN (9-20) mg/dL Creatinine (0.66-1.25) mg/dL Glucose (74-99) mg/dL POC Glucose (mg/dL) 165 H 155 H (75-99) mg/dL Calcium (8.4-10.2) mg/dL Total Bilirubin (0.2-1.3) mg/dL AST (17-59) U/L ALT (4-49) U/L Alkaline Phosphatase (38-126) U/L Total Protein (6.3-8.2) g/dL Albumin (3.5-5.0) g/dL 07/21/20 07/21/20 07/21/20 Range/Units 04:00 06:19 08:08 WBC (3.8-10.6) k/uL RBC (4.30-5.90) m/uL Hgb (13.0-17.5) gm/dL Hct (39.0-53.0) % Plt Count (150-450) k/uL Neutrophils # (1.3-7.7) k/uL Lymphocytes # (1.0-4.8) k/uL Sodium 126 L (137-145) mmol/L BUN 36 H (9-20) mg/dL Creatinine 1.51 H (0.66-1.25) mg/dL Glucose 136 H (74-99) mg/dL POC Glucose (mg/dL) 154 H 158 H (75-99) mg/dL Calcium 7.8 L (8.4-10.2) mg/dL Total Bilirubin 2.8 H (0.2-1.3) mg/dL AST 156 H (17-59) U/L ALT 59 H (4-49) U/L Alkaline Phosphatase 27 L (38-126) U/L Total Protein 5.1 L (6.3-8.2) g/dL Albumin 3.1 L (3.5-5.0) g/dL Assessment and Plan Plan: DM 2 - hold metformin - Inulin subcutaneous with sliding scale insulin coverage, check blood sugars every before meals and at bedtime - Follow blood sugars closely - A1C from 06/21/2020 5.2, anticipate discharge home back on metformin which may be able to come off in the near future in the outpatient setting. A-fib with RVR On amio Off cardizem gtt Heparin s.q CONNOR on CKD stage III Baseline cr 1.4-1.5 Likely cardiorenal syndrome Try to avoid IV fluids Recheck in am Avoid nephrotoxic meds Acute hyponatremia Likely sec to renal failure Monitor Pneumoperitoneum suspect secondary to mediastinal chest tubes -Tube d/melody -Resolved. Acute blood loss anemia and thrombocytopenia, anticipated outcome of surgery - follow CBC - transfuse as indicated COPD with acute exacerbation - Started on steroids - Nebs - on spiriva and advair at home Coronary artery disease -Status post coronary artery bypass grafting -Cardiothoracic and cardiology following HTN - meds per CT surgery - follow BP Hypothyroidism status post partial thyroidectomy - synthroid Morbid obesity with BMI 30.5 -Outpatient structured weight loss Chronic: ADDY Jacobs's Thank you for allowing us to participate in the care of this pleasant patient. Do not hesitate to contact us with questions. Someone can be reached from the [facility] hospitalist group all hours of the day at [phone] or via perfect serve.
--- NOTE | 2020-07-21 12:52 | P.PN ---
Subjective Progress Note Date: 07/21/20 CHIEF COMPLAINT: Status post CABG 2 vessels HISTORY OF PRESENT ILLNESS: Patient is being followed in regards to pneumoperitoneum. Patient remains in the ICU. He is sitting in bedside chair. He is postop day #3 status post 2 vessel coronary bypass graft surgery. Patient denies any abdominal pain. He has some shortness of breath and wheezing pulmonary services started him on IV steroids Pulmicort and Perforomist. Patient also had another episode of atrial fibrillation with rapid ventricular response last night and has converted back to sinus rhythm. Followed by cardiology. His chest tube has been removed. PHYSICAL EXAM: VITAL SIGNS: Reviewed. GENERAL: Well-developed in no acute distress. HEENT: No sclera icterus. Extraocular movements grossly intact. Moist buccal mucosa. Head is atraumatic, normocephalic. ABDOMEN: Soft. Nondistended. Nontender. NEUROLOGIC: Alert and oriented. Cranial nerves II through XII grossly intact. ASSESSMENT: 1. Pneumoperitoneum secondary to chest tube and recent CABG. Pneumoperitoneum no longer present chest x-ray 2. symptomatic triple-vessel coronary artery disease status post 2 vessel coronary bypass grafting surgery 3. History of coronary artery disease with stent placement to the RCA in 2002 4. Hypertension 5. Diabetes mellitus type 2 PLAN: -Encourage incentive spirometer use -Continue supportive care -No surgical intervention planned -Continue heart healthy carb consistent diet Physician [employer] Specialist note has been reviewed by physician. Signing provider agrees with the documented findings, assessment, and plan of care. Objective - Vital Signs Vital signs: Vital Signs Temp 97.6 F 07/21/20 12:00 Pulse 87 07/21/20 12:00 Resp 30 H 07/21/20 12:15 BP 122/51 07/21/20 12:00 Pulse Ox 98 07/21/20 12:00 Intake & Output 07/20/20 07/21/20 07/21/20 18:59 06:59 18:59 Intake Total 955.119 922.481 841.667 Output Total 695 835 335 Balance 260.119 87.481 506.667 Weight 99.4 kg Intake: IV 196 300 135 Sodium Chloride 0.9% 1, 160 240 120 000 ml @ 20 mls/hr IV . Q24H [facility] Rx#:[id number] pressure bag 36 60 15 Intake, IV Titration 159.119 22.481 86.667 Amount Diltiazem 125 mg In 154.750 86.667 Sodium Chloride 0.9% 100 ml @ Per Protocol IV .Q0M [facility] Rx#:[id number] Insulin Regular 100 unit 4.369 22.481 In Sodium Chloride 0.9% 100 ml @ Per Protocol IV .Q0M [facility] Rx#:[id number] Oral 600 600 620 Output: Chest Tube Drainage 50 left pleural chest tube 50 Urine 645 835 335 Other: Voiding Method Indwelling Catheter Indwelling Catheter Indwelling Catheter ABP, PAP, CO, CI - Last Documented Arterial Blood Pressure 125/61 Pulmonary Artery Pressure 33/14 Cardiac Output 6.7 Cardiac Index 3.1 - Labs CBC & Chem 7: 07/21/20 04:00 07/21/20 04:00 Labs: Abnormal Lab Results - Last 24 Hours (Table) 07/20/20 07/20/20 07/20/20 Range/Units 14:21 16:01 17:50 WBC (3.8-10.6) k/uL RBC (4.30-5.90) m/uL Hgb (13.0-17.5) gm/dL Hct (39.0-53.0) % Plt Count (150-450) k/uL Neutrophils # (1.3-7.7) k/uL Lymphocytes # (1.0-4.8) k/uL Sodium (137-145) mmol/L BUN (9-20) mg/dL Creatinine (0.66-1.25) mg/dL Glucose (74-99) mg/dL POC Glucose (mg/dL) 190 H 122 H 135 H (75-99) mg/dL Calcium (8.4-10.2) mg/dL Total Bilirubin (0.2-1.3) mg/dL AST (17-59) U/L ALT (4-49) U/L Alkaline Phosphatase (38-126) U/L Total Protein (6.3-8.2) g/dL Albumin (3.5-5.0) g/dL 07/20/20 07/20/20 07/21/20 Range/Units 19:40 22:05 00:03 WBC (3.8-10.6) k/uL RBC (4.30-5.90) m/uL Hgb (13.0-17.5) gm/dL Hct (39.0-53.0) % Plt Count (150-450) k/uL Neutrophils # (1.3-7.7) k/uL Lymphocytes # (1.0-4.8) k/uL Sodium (137-145) mmol/L BUN (9-20) mg/dL Creatinine (0.66-1.25) mg/dL Glucose (74-99) mg/dL POC Glucose (mg/dL) 156 H 136 H 127 H (75-99) mg/dL Calcium (8.4-10.2) mg/dL Total Bilirubin (0.2-1.3) mg/dL AST (17-59) U/L ALT (4-49) U/L Alkaline Phosphatase (38-126) U/L Total Protein (6.3-8.2) g/dL Albumin (3.5-5.0) g/dL 07/21/20 07/21/20 07/21/20 Range/Units 01:58 03:58 04:00 WBC 15.7 H (3.8-10.6) k/uL RBC 2.50 L (4.30-5.90) m/uL Hgb 8.5 L (13.0-17.5) gm/dL Hct 24.1 L (39.0-53.0) % Plt Count 111 L (150-450) k/uL Neutrophils # 14.5 H (1.3-7.7) k/uL Lymphocytes # 0.3 L (1.0-4.8) k/uL Sodium (137-145) mmol/L BUN (9-20) mg/dL Creatinine (0.66-1.25) mg/dL Glucose (74-99) mg/dL POC Glucose (mg/dL) 165 H 155 H (75-99) mg/dL Calcium (8.4-10.2) mg/dL Total Bilirubin (0.2-1.3) mg/dL AST (17-59) U/L ALT (4-49) U/L Alkaline Phosphatase (38-126) U/L Total Protein (6.3-8.2) g/dL Albumin (3.5-5.0) g/dL 07/21/20 07/21/20 07/21/20 Range/Units 04:00 06:19 08:08 WBC (3.8-10.6) k/uL RBC (4.30-5.90) m/uL Hgb (13.0-17.5) gm/dL Hct (39.0-53.0) % Plt Count (150-450) k/uL Neutrophils # (1.3-7.7) k/uL Lymphocytes # (1.0-4.8) k/uL Sodium 126 L (137-145) mmol/L BUN 36 H (9-20) mg/dL Creatinine 1.51 H (0.66-1.25) mg/dL Glucose 136 H (74-99) mg/dL POC Glucose (mg/dL) 154 H 158 H (75-99) mg/dL Calcium 7.8 L (8.4-10.2) mg/dL Total Bilirubin 2.8 H (0.2-1.3) mg/dL AST 156 H (17-59) U/L ALT 59 H (4-49) U/L Alkaline Phosphatase 27 L (38-126) U/L Total Protein 5.1 L (6.3-8.2) g/dL Albumin 3.1 L (3.5-5.0) g/dL 07/21/20 Range/Units 12:32 WBC (3.8-10.6) k/uL RBC (4.30-5.90) m/uL Hgb (13.0-17.5) gm/dL Hct (39.0-53.0) % Plt Count (150-450) k/uL Neutrophils # (1.3-7.7) k/uL Lymphocytes # (1.0-4.8) k/uL Sodium (137-145) mmol/L BUN (9-20) mg/dL Creatinine (0.66-1.25) mg/dL Glucose (74-99) mg/dL POC Glucose (mg/dL) 176 H (75-99) mg/dL Calcium (8.4-10.2) mg/dL Total Bilirubin (0.2-1.3) mg/dL AST (17-59) U/L ALT (4-49) U/L Alkaline Phosphatase (38-126) U/L Total Protein (6.3-8.2) g/dL Albumin (3.5-5.0) g/dL
[2020-07-21] MEDS ORDERED: DIGOXIN 250 MCG/ML 2 ML AMP IVP ONE (16:32)
[2020-07-21 16:54] LABS: Glucose,Whole Blood 206 mg/dL (75-99)
[2020-07-21 16:54] LABS: Glucose,Whole Blood 227 mg/dL (75-99)
[2020-07-21] MEDS: DILTIAZEM 125 MG in SODIUM CHLORIDE 0.9% 100 ML IV SCH (17:16)
[2020-07-21 20:46] LABS: Glucose,Whole Blood 165 mg/dL (75-99)
[2020-07-21] MEDS: SENNOSIDES-DOCUSATE SODIUM 1 EACH TAB PO SCH (21:01)
[2020-07-21] MEDS: INSULIN DETEMIR (LEVEMIR) 100 UNIT/ML SYR SQ SCH (21:01)
[2020-07-21] MEDS: SODIUM CHLORIDE 0.9% 1,000 ML IV SCH (21:03)
[2020-07-22] MEDS: methylPREDNISolone SOD SUCCI 125 MG/2 ML VIAL IV SCH ×4 (00:08→17:10)
[2020-07-22] MEDS: HEPARIN SODIUM,PORCINE 5,000 UNIT/ML 1 ML VIAL SQ SCH ×2 (00:09→08:24)
[2020-07-22] MEDS: DILTIAZEM 125 MG in SODIUM CHLORIDE 0.9% 100 ML IV SCH (04:23)
[2020-07-22 05:57] LABS: Basophils # (A) 0.1 k/uL (0-0.2); Basophils % (A) 0 %; Eosinophils % (A) 0 %; HCT 25.4 % (39.0-53.0); HGB 8.8 gm/dL (13.0-17.5); Lymphocytes # (A) 0.4 k/uL (1.0-4.8); Lymphocytes % (A) 2 %; MCH 33.6 pg (25.0-35.0); MCHC 34.6 g/dL (31.0-37.0); MCV 97.1 fL (80.0-100.0); Mean Platelet Volume 7.6; Monocytes % (A) 6 %; Neutrophils # (A) 15.1 k/uL (1.3-7.7); Neutrophils % (A) 90 %; Platelet Count 161 k/uL (150-450); Poikilocytosis Slight; RBC 2.61 m/uL (4.30-5.90); WBC 16.8 k/uL (3.8-10.6)
[2020-07-22 06:01] LABS: Ionized Calcium 4.6 mg/dL (4.5-5.3)
[2020-07-22] MEDS: LEVOTHYROXINE 50 MCG TAB PO SCH (06:12)
[2020-07-22 06:18] LABS: Albumin 3.4 g/dL (3.5-5.0); Calcium 8.4 mg/dL (8.4-10.2); Magnesium 2.4 mg/dL (1.6-2.3); Potassium 5.3 mmol/L (3.5-5.1); Total Bilirubin 2.2 mg/dL (0.2-1.3); Total Protein 5.6 g/dL (6.3-8.2)
[2020-07-22] MEDS: PANTOPRAZOLE 40 MG TABLET PO SCH (06:59)
[2020-07-22] MEDS: INSULIN ASPART (NovoLOG) 100 UNIT/ML VIAL SQ SCH ×4 (06:59→20:48)
[2020-07-22 07:00] LABS: Glucose,Whole Blood 151 mg/dL (75-99)
--- NOTE | 2020-07-22 07:29 | XR ---
EXAMINATION TYPE: XR chest 1V portable DATE OF EXAM: 07/22/2020 Comparison: 07/21/2020 Clinical History: 80-year-old male post cardiac surgery Findings: Patient is rotated towards the right. Median sternotomy wires are present with post-CABG clips in med iastinum. Heart borderline enlarged. Continued small right effusion with right greater than left corrina cent patchy densities. Right IJ sheath remains in place. Impression: Rotated exam with continued small right pleural effusion with adjacent atelectasis and or consolidati on. Additional patchy atelectasis/consolidation at the left base is also similar.
[2020-07-22] MEDS: IPRATROPIUM-ALBUTEROL 3 ML NEB INHALATION SCH ×4 (07:58→18:52)
[2020-07-22] MEDS: FORMOTEROL FUMARATE 20 MCG/2 ML NEBU INHALATION SCH ×2 (07:58→18:52)
[2020-07-22] MEDS: BUDESONIDE 1 MG/2 ML NEBU INHALATION SCH ×2 (07:58→18:51)
[2020-07-22] MEDS: CLOPIDOGREL 75 MG TAB PO SCH (08:25)
[2020-07-22] MEDS: AMIODARONE 200 MG TAB PO SCH ×2 (08:25→20:42)
[2020-07-22] MEDS: METOPROLOL TARTRATE 50 MG TAB PO SCH (08:25)
[2020-07-22] MEDS: bisacodyL 10 MG SUPP RECTAL SCH (08:25)
[2020-07-22] MEDS: ASPIRIN 325 MG TAB PO SCH (08:25)
[2020-07-22] MEDS: ATORVASTATIN 40 MG TAB PO SCH (08:25)
[2020-07-22] MEDS: SODIUM CHLORIDE 0.9% 1,000 ML IV SCH (08:26)
[2020-07-22] MEDS ORDERED: METOCLOPRAMIDE 5 MG/ML 2 ML VIAL IVP STA (09:34)
--- NOTE | 2020-07-22 09:37 | P.PN ---
Subjective Progress Note Date: 07/22/20 Principal diagnosis: Symptomatic triple-vessel coronary artery disease, mild left ventricular dysfunction. Previuos medical history of stenting to his right coronary artery in 2002, hypertension, hyperlipidemia, hypothyroid status post partial thyroidectomy, previous tobacco dependence quit smoking 20 years ago, moderate chronic obstructive pulmonary disease with preoperative FEV1 of 56% of predicted value, bullous emphysema, remote history of pneumonia, type 2 diabetes mellitus with a preoperative hemoglobin A1c of 5.2%, chronic kidney disease stage III with a baseline creatinine of 1.4-1.5, family history of premature coronary artery disease with brother having had CABG at less than 50 years old. POD #4 double coronary artery bypass grafting using the left internal mammary artery to left anterior descending coronary artery, reverse greater saphenous vein graft from the aorta to the posterior descending coronary artery. Exclusion of the left atrial appendage using a 35 mm Atriclip, endoscopic harvesting of the right greater saphenous vein from the groin to above the ankle level, graft flow measurement using the [id number] system, intraoperative transesophageal echocardiogram and epi-aortic scanning. Postoperative acute blood loss anemia, expected outcome from hemodilution and cardiopulmonary bypass. Postoperative paroxysmal atrial fibrillation, unexpected but common outcome after open heart surgery. Pneumoperitoneum, unexpected, likely secondary to mediastinal chest tubes The patient is currently sitting up in a recliner in mild distress. Complains of mild incisional type chest pain controlled on current medication regimen, complains of continued shortness of breath despite oxygen saturations in the mid 90s, not able to pull as much on his IS today. Continues to go in and out of atrial fibrillation, was restarted on IV cardizem last night, remains on oral amio and lopressor. Right internal jugular Cordis remains. Needs encouragement to use incentive spirometry and ambulate. Objective - Vital Signs Vital signs: Vital Signs Temp 97.7 F 07/22/20 08:00 Pulse 88 07/22/20 08:16 Resp 32 H 07/22/20 08:00 BP 130/62 07/22/20 08:00 Pulse Ox 94 L 07/22/20 08:00 Intake & Output 07/21/20 07/22/20 07/22/20 18:59 06:59 18:59 Intake Total 1229.667 637.167 296 Output Total 585 1540 175 Balance 644.667 -902.833 121 Weight 102.4 kg Intake: IV 273 276 46 Sodium Chloride 0.9% 1, 240 240 40 000 ml @ 20 mls/hr IV . Q24H [facility] Rx#:[id number] pressure bag 33 36 6 Intake, IV Titration 86.667 111.167 Amount Diltiazem 125 mg In 86.667 111.167 Sodium Chloride 0.9% 100 ml @ Per Protocol IV .Q0M [facility] Rx#:[id number] Oral 870 250 250 Output: Urine 585 1540 175 Other: Voiding Method Indwelling Catheter Indwelling Catheter Indwelling Catheter ABP, PAP, CO, CI - Last Documented Arterial Blood Pressure 125/61 Pulmonary Artery Pressure 33/14 Cardiac Output 6.7 Cardiac Index 3.1 - Constitutional General appearance: Present: cooperative, mild distress, obese - Respiratory Details: Lungs sounds diminished bilaterally in the bases. Respirations even, slightly labored. Currently on 3 L nasal cannula with oxygen saturation 94%. Only able to achieve 500-750 mL on his incentive spirometry today. Strong productive cough with donald sputum. - Cardiovascular Details: S1, S2 present. Regular rate and rhythm, currently sinus rhythm with heart rate in the 90s on telemetry. Sternum stable. Atrial epicardial pacemaker wires present, grounded. Palpable peripheral pulses bilaterally. Upper extremity trace generalized edema present. Heart hugger in place with patient demonstrating appropriate use. Antiembolism stockings, SCDs present. Right internal jugular Cordis present, CVP 6-9 overnight in bed, 1-3 this am up in chair. - Gastrointestinal Gastrointestinal Comment(s): Abdomen soft, nontender, nondistended. Hypoactive bowel sounds present. To lerating minimal diet with some nausea. Denies flatus, positive belching - Genitourinary Genitourinary Comment(s): Villafana present draining clear, yellow urine. Output 75-150 mL per hour overnight, 2125 mL in the last 24 hours - Integumentary Integumentary Comment(s): Skin is warm and dry with evidence of good perfusion. Anterior chest incision well approximated and covered with dry intact dressing. Right lower extremity EVH site well approximated - Neurologic Neurologic: Present: CNII-XII intact - Musculoskeletal Musculoskeletal: Present: gait normal, strength equal bilaterally - Psychiatric Psychiatric: Present: A&O x's 3, appropriate affect - Allied health notes Allied health notes reviewed: nursing - Labs CBC & Chem 7: 07/22/20 05:39 07/22/20 05:39 Labs: Abnormal Lab Results - Last 24 Hours (Table) 07/21/20 07/21/20 07/21/20 Range/Units 12:32 16:50 16:51 WBC (3.8-10.6) k/uL RBC (4.30-5.90) m/uL Hgb (13.0-17.5) gm/dL Hct (39.0-53.0) % Neutrophils # (1.3-7.7) k/uL Lymphocytes # (1.0-4.8) k/uL Sodium (137-145) mmol/L Potassium (3.5-5.1) mmol/L Chloride (98-107) mmol/L Carbon Dioxide (22-30) mmol/L BUN (9-20) mg/dL Creatinine (0.66-1.25) mg/dL Glucose (74-99) mg/dL POC Glucose (mg/dL) 176 H 206 H 227 H (75-99) mg/dL Ionized Calcium Tamara (4.5-5.3) mg/dL Magnesium (1.6-2.3) mg/dL Total Bilirubin (0.2-1.3) mg/dL AST (17-59) U/L ALT (4-49) U/L Alkaline Phosphatase (38-126) U/L Total Protein (6.3-8.2) g/dL Albumin (3.5-5.0) g/dL 07/21/20 07/22/20 07/22/20 Range/Units 20:45 04:20 05:39 WBC 16.8 H (3.8-10.6) k/uL RBC 2.61 L (4.30-5.90) m/uL Hgb 8.8 L (13.0-17.5) gm/dL Hct 25.4 L (39.0-53.0) % Neutrophils # 15.1 H (1.3-7.7) k/uL Lymphocytes # 0.4 L (1.0-4.8) k/uL Sodium (137-145) mmol/L Potassium (3.5-5.1) mmol/L Chloride (98-107) mmol/L Carbon Dioxide (22-30) mmol/L BUN (9-20) mg/dL Creatinine (0.66-1.25) mg/dL Glucose (74-99) mg/dL POC Glucose (mg/dL) 165 H (75-99) mg/dL Ionized Calcium Tamara 4.0 L (4.5-5.3) mg/dL Magnesium (1.6-2.3) mg/dL Total Bilirubin (0.2-1.3) mg/dL AST (17-59) U/L ALT (4-49) U/L Alkaline Phosphatase (38-126) U/L Total Protein (6.3-8.2) g/dL Albumin (3.5-5.0) g/dL 07/22/20 07/22/20 Range/Units 05:39 06:58 WBC (3.8-10.6) k/uL RBC (4.30-5.90) m/uL Hgb (13.0-17.5) gm/dL Hct (39.0-53.0) % Neutrophils # (1.3-7.7) k/uL Lymphocytes # (1.0-4.8) k/uL Sodium 124 L (137-145) mmol/L Potassium 5.3 H (3.5-5.1) mmol/L Chloride 95 L (98-107) mmol/L Carbon Dioxide 20 L (22-30) mmol/L BUN 45 H (9-20) mg/dL Creatinine 1.62 H (0.66-1.25) mg/dL Glucose 148 H (74-99) mg/dL POC Glucose (mg/dL) 151 H (75-99) mg/dL Ionized Calcium Tamara (4.5-5.3) mg/dL Magnesium 2.4 H (1.6-2.3) mg/dL Total Bilirubin 2.2 H (0.2-1.3) mg/dL AST 147 H (17-59) U/L ALT 130 H (4-49) U/L Alkaline Phosphatase 36 L (38-126) U/L Total Protein 5.6 L (6.3-8.2) g/dL Albumin 3.4 L (3.5-5.0) g/dL - Imaging and Cardiology Chest x-ray: report reviewed, image reviewed Assessment and Plan Assessment: 1. Symptomatic triple-vessel coronary artery disease, status post 2 vessel CABG 2. Mild left ventricular dysfunction 3. Previuos history of stenting to his right coronary artery in 2002 4. Hypertension 5. Hyperlipidemia 6. Hypothyroid status post partial thyroidectomy 7. Previous tobacco dependence with bullous emphysema 8. Moderate chronic obstructive pulmonary disease with preoperative FEV1 of 56% of predicted value 9. Remote history of pneumonia 10. Type 2 diabetes mellitus with a preoperative hemoglobin A1c of 5.2% 11. Chronic kidney disease stage III with a baseline creatinine of 1.4-1.5 12. Family history of premature coronary artery disease with brother having had CABG at less than 50 years old 13. Postoperative acute blood loss anemia, expected outcome 14. Postoperative paroxysmal atrial fibrillation, unexpected, status post exclusion of the left atrial appendage 15. Pneumoperitoneum, unexpected Plan: 1. Continue low dose aspirin, statin, and beta apolinar. Will increase beta apolinar to 75 mg BID. Stop Plavix 2. Continue amiodarone for afib prophylaxis. DC IV Cardizem. Will start Eliquis for anticoagulation 3. Wean oxygen as tolerated. Encourage incentive spirometry use 10 times every hour while awake. Bronchodilators per pulmonology management. 4. Increase activity, ambulate minimum 4x daily, out of bed for all meals. PT/OT/cardiac rehab consulted. 5. Will monitor daily labs and chest x-rays. Electrolyte replacement per protocol. No lasix today 6. GI/DVT prophylaxis. 7. Pain control with current medication regimen. 8. Insulin management per Dr. Polk 9. Dulcolax suppository daily until bowel movement 10. Discontinue Villafana catheter. May bladder scan and straight cath for >300 mL residual 11. Establish peripheral IV, discontinue cordis 12. Atrial epicardial wire discontinued, bedrest for 1 hour 13. Strict accurate intake and output, daily weight with stand upscale, not bed scale 14. More recommendations to follow based on patient's clinical course. Time with Patient: Greater than 30
--- NOTE | 2020-07-22 09:49 | P.PN ---
Subjective Progress Note Date: 07/22/20 Principal diagnosis: Coronary artery disease, status post three-vessel bypass grafting 79-year-old white male patient with past medical history of hypertension, hyperlipidemia, moderate to severe COPD with the baseline FEV1 of 56% of predicted who came in on 07/18/2020 for elective two-vessel bypass grafting with PABLO to LAD, and SVG to the PDA. He was seen in the intensive care unit following surgery, patient was successfully weaned and extubated from mechanical ventilator and under 6 hours following his OR exit, is currently awake and alert, sitting in the chair, he is currently on 2 L of oxygen, his pulse ox is 98%, hemodynamically he stable, blood pressure is 106/51, PA pressures 35/11, CVP is 8, no fever or chills, IV fluids including the 0.9 normal saline at a r ate of 30 ML per hour, insulin is 4.5 units per hour, no vasoactive drips. Today's chest x-ray shows a pneumoperitoneum with lucency present underneath the right hemidiaphragm. He has left pleural and mediastinal chest tube, and there has been 500 mL of serosanguineous output from the left pleural and 350 mL from the mediastinal chest tube in the last 24 hours. Is having some mild discomfort under the right rib cage, but no acute distress, abdomen is distended but soft, he is hemodynamically stable, he is in sinus mechanism, no nausea vomiting or diarrhea. CT of the abdomen and pelvis is pending today's labs have been reviewed, showing white blood cell count of 11.9, hemoglobin of 9, sodium is 133, the rest of the electrolytes were within normal limits, B1 is 25 creatinine is 1.18 The patient is seen today 07/20/2020 in follow-up in the intensive care unit. He is currently sitting up in a chair at the bedside. Awake and alert in no acute distress. This is postoperative day #2, two-vessel coronary artery bypass surgery. He is currently on 2 L/m per nasal cannula maintaining good O2 saturation in the 90s. He did have issues with atrial fibrillation and is currently on Cardizem drip at 10 mg per hour. He did receive IV amiodarone, initiated on by mouth today. 0.9 normal saline at KVO. Chest x-ray reveals removal of mediastinal drains. Right-sided pneumoperitoneum is no longer appreciated. Left-sided chest tube remains in place. Bibasilar patchy atelectasis remains. White count 18.2. Hemoglobin 8.9. Platelet count 99,000. Sodium 127. Potassium 5.0. Creatinine 1.37. He is pulling approximately 3978-2870 ML's on the incentive spirometer. Continued on bronchodilators. Heparin for DVT prophylaxis. Patient is seen today 07/22/2020 in follow-up on the intensive care unit. He is currently sitting up in a chair at the bedside. He is having complaints of increasing shortness of breath. He is doing less on his incentive spirometer. Chest x-ray reveals small right pleural effusion with adjacent atelectasis and/or consolidation. He is currently maintaining O2 saturations in the low 90s on 3 L/m per nasal cannula. Respiratory rate 32. He is afebrile. Blood pressure stable. He did have issues with atrial fibrillation with rapid ventricular response last evening. He is on a Cardizem drip at 10 mg per hour. He will be transitioned to Eliquis. On oral amiodarone. 0.9 normal saline at 20 ML's per hour. Currently in sinus rhythm. White count 16.8. Hemoglobin 8.8. Sodium 124. Potassium 5.3. Bicarb 20. Creatinine 1.62. AST 147. ALT 130. He is still having issues with hypoactive bowel and not passing flatus or bowel movement since surgery. He remains on bronchodilators and IV Solu-Medrol. Objective - Vital Signs Vital signs: Vital Signs Temp 97.7 F 07/22/20 08:00 Pulse 88 07/22/20 08:16 Resp 32 H 07/22/20 08:00 BP 130/62 07/22/20 08:00 Pulse Ox 94 L 07/22/20 08:00 Intake & Output 07/21/20 07/22/20 07/22/20 18:59 06:59 18:59 Intake Total 1229.667 637.167 296 Output Total 585 1540 175 Balance 644.667 -902.833 121 Weight 102.4 kg Intake: IV 273 276 46 Sodium Chloride 0.9% 1, 240 240 40 000 ml @ 20 mls/hr IV . Q24H [facility] Rx#:[id number] pressure bag 33 36 6 Intake, IV Titration 86.667 111.167 Amount Diltiazem 125 mg In 86.667 111.167 Sodium Chloride 0.9% 100 ml @ Per Protocol IV .Q0M [facility] Rx#:[id number] Oral 870 250 250 Output: Urine 585 1540 175 Other: Voiding Method Indwelling Catheter Indwelling Catheter Indwelling Catheter ABP, PAP, CO, CI - Last Documented Arterial Blood Pressure 125/61 Pulmonary Artery Pressure 33/14 Cardiac Output 6.7 Cardiac Index 3.1 - Exam GENERAL EXAM: Alert, very pleasant, 79-year-old male patient, on 3 L of oxygen, sitting up in the recliner, in the ICU, fairly comfortable in no apparent distress. HEAD: Normocephalic/atraumatic. EYES: Normal reaction of pupils, equal size. Conjunctiva pink, sclera white. NOSE: Clear with pink turbinates. THROAT: No erythema or exudates. NECK: No masses, no JVD, no thyroid enlargement, no adenopathy. CHEST: No chest wall deformity. Symmetrical expansion. Midsternal incision is clean dry and intact LUNGS: Equal air entry with scattered crackles in the bases. CVS: Regular rate and rhythm, normal S1 and S2, no gallops, no murmurs, no rubs ABDOMEN: Slightly distended, nontender. No hepatosplenomegaly, hypoactive bowel sounds, no guarding or rigidity. EXTREMITIES: No clubbing, no edema, no cyanosis, 2+ pulses and upper and lower extremities. MUSCULOSKELETAL: Muscle strength and tone normal. SPINE: No scoliosis or deformity SKIN: No rashes CENTRAL NERVOUS SYSTEM: No focal deficits, tone is normal in all 4 extremities. PSYCHIATRIC: Alert and oriented -3. Appropriate affect. Intact judgment and insight. - Labs CBC & Chem 7: 07/22/20 05:39 07/22/20 05:39 Labs: Abnormal Lab Results - Last 24 Hours (Table) 07/21/20 07/21/20 07/21/20 Range/Units 12:32 16:50 16:51 WBC (3.8-10.6) k/uL RBC (4.30-5.90) m/uL Hgb (13.0-17.5) gm/dL Hct (39.0-53.0) % Neutrophils # (1.3-7.7) k/uL Lymphocytes # (1.0-4.8) k/uL Sodium (137-145) mmol/L Potassium (3.5-5.1) mmol/L Chloride (98-107) mmol/L Carbon Dioxide (22-30) mmol/L BUN (9-20) mg/dL Creatinine (0.66-1.25) mg/dL Glucose (74-99) mg/dL POC Glucose (mg/dL) 176 H 206 H 227 H (75-99) mg/dL Ionized Calcium Tamara (4.5-5.3) mg/dL Magnesium (1.6-2.3) mg/dL Total Bilirubin (0.2-1.3) mg/dL AST (17-59) U/L ALT (4-49) U/L Alkaline Phosphatase (38-126) U/L Total Protein (6.3-8.2) g/dL Albumin (3.5-5.0) g/dL 07/21/20 07/22/20 07/22/20 Range/Units 20:45 04:20 05:39 WBC 16.8 H (3.8-10.6) k/uL RBC 2.61 L (4.30-5.90) m/uL Hgb 8.8 L (13.0-17.5) gm/dL Hct 25.4 L (39.0-53.0) % Neutrophils # 15.1 H (1.3-7.7) k/uL Lymphocytes # 0.4 L (1.0-4.8) k/uL Sodium (137-145) mmol/L Potassium (3.5-5.1) mmol/L Chloride (98-107) mmol/L Carbon Dioxide (22-30) mmol/L BUN (9-20) mg/dL Creatinine (0.66-1.25) mg/dL Glucose (74-99) mg/dL POC Glucose (mg/dL) 165 H (75-99) mg/dL Ionized Calcium Tamara 4.0 L (4.5-5.3) mg/dL Magnesium (1.6-2.3) mg/dL Total Bilirubin (0.2-1.3) mg/dL AST (17-59) U/L ALT (4-49) U/L Alkaline Phosphatase (38-126) U/L Total Protein (6.3-8.2) g/dL Albumin (3.5-5.0) g/dL 07/22/20 07/22/20 Range/Units 05:39 06:58 WBC (3.8-10.6) k/uL RBC (4.30-5.90) m/uL Hgb (13.0-17.5) gm/dL Hct (39.0-53.0) % Neutrophils # (1.3-7.7) k/uL Lymphocytes # (1.0-4.8) k/uL Sodium 124 L (137-145) mmol/L Potassium 5.3 H (3.5-5.1) mmol/L Chloride 95 L (98-107) mmol/L Carbon Dioxide 20 L (22-30) mmol/L BUN 45 H (9-20) mg/dL Creatinine 1.62 H (0.66-1.25) mg/dL Glucose 148 H (74-99) mg/dL POC Glucose (mg/dL) 151 H (75-99) mg/dL Ionized Calcium Tamara (4.5-5.3) mg/dL Magnesium 2.4 H (1.6-2.3) mg/dL Total Bilirubin 2.2 H (0.2-1.3) mg/dL AST 147 H (17-59) U/L ALT 130 H (4-49) U/L Alkaline Phosphatase 36 L (38-126) U/L Total Protein 5.6 L (6.3-8.2) g/dL Albumin 3.4 L (3.5-5.0) g/dL Assessment and Plan Assessment: 1 Symptomatic coronary artery disease, status post two-vessel coronary artery bypass grafting with PABLO to the LAD, SVG to the PDA, postoperative day #4 2 Postoperative atrial fibrillation with rapid ventricular response requiring amiodarone and Cardizem, initiated on Eliquis 3 History of coronary artery disease with previous stent placement 4 Routine postoperative ventilator management, and patient was successfully extubated on postoperative day 0 and under 6 hours of OR accident 5 Constipation 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 Meyers Chest x-ray and labs reviewed Obtain arterial blood gases and a d-dimer based on the patient's ongoing complaints of shortness of breath Encouraged regarding the increased use the incentive spirometer and cough and deep breathing exercises Increase his activity as tolerated Titrate down the FiO2 as tolerated Continue bronchodilators and IV Solu-Medrol We will continue to follow and make further recommendations based on his clinical status I, the cosigning physician, performed a history & physical examination of the patient. Lungs sounds with basilar crackles. Maintaining good O2 saturations in the 90s on 3 L/m per nasal cannula. I discussed the assessment and plan of care with my nurse practitioner, Olga Marin. I attest to the above note as dictated by her.
[2020-07-22 10:05] LABS: ABG Base Excess -4.9 mmol/L; ABG HCO3 20 mmol/L (21-25); ABG PCO2 30 mmHg (35-45); ABG PH 7.43 (7.35-7.45); ABG PO2 72 mmHg (83-108); ABG TCO2 20 mmol/L (19-24); Allen Test Performed? Yes
[2020-07-22] MEDS: METOPROLOL TARTRATE 25 MG TAB PO SCH ×2 (11:04→20:41)
[2020-07-22] MEDS: APIXABAN 5 MG TAB PO SCH ×2 (11:04→20:42)
--- NOTE | 2020-07-22 11:10 | P.PN ---
Progress Note - Text Progress Note Date: 07/22/20 Patient range stable. He denies any significant abdominal pain. On exam vital signs are stable. Abdomen soft. There is no significant tenderness. No surgical I's plan. Patient continue receive supportive care.
[2020-07-22] MEDS: ACETAMINOPHEN TAB 325 MG TAB PO PRN (11:17)
[2020-07-22 12:26] LABS: Glucose,Whole Blood 148 mg/dL (75-99)
[2020-07-22] MEDS ORDERED: ALBUMIN HUMAN 5% 250 ML IVPB ONE (12:55)
[2020-07-22] MEDS ORDERED: ALBUMIN HUMAN 5% 250 ML in EMPTY BAG 1 BAG IVPB STA (13:01)
--- NOTE | 2020-07-22 13:03 | P.PN ---
Subjective Progress Note Date: 07/22/20 HISTORY OF PRESENT ILLNESS: patient is status post CABG 2. Postoperative day #4. Patient examined this morning the intensive care unit. Patient is sitting up in the chair. Patient denies chest pain or pressure. He reports shortness of breath. Patient states he is not using his incentive spirometer as often as he should. Patient reports he has only been able to get up and ambulate from the bed to the chair secondary to shortness of breath. Patient has been going in and out of atrial fibrillation. IV Cardizem was restarted yesterday but was discontinued this morning per cardiothoracic surgery. PHYSICAL EXAM: VITAL SIGNS: Reviewed. GENERAL: Well-developed in no acute distress. NECK: Supple. No JVD or thyromegaly LUNGS: Respirations even and unlabored. Lungs diminished bilaterally. HEART: Regular rate and rhythm. S1 and S2 heard. EXTREMITIES: Normal range of motion. No clubbing or cyanosis. Peripheral pulses intact. No lower extremity edema ASSESSMENT: #1 status post two-vessel bypass grafting #2 known history of coronary artery disease with prior RCA stenting in 2002 #3 hyperlipidemia #4 hypertension #5 diabetes #6 hypothyroidism #7 chronic kidney disease #8 history of nicotine dependence #9 moderately severe chronic obstructive pulmonary disease #10 paroxysmal atrial fibrillation #11 shortness of breath, multifactorial secondary to anemia, atelectasis, and small right pleural effusion PLAN: IV Cardizem has been discontinued Agreeable to increasing beta apolinar per cardiothoracic surgery Eliquis has been started today per cardiothoracic surgery Continue telemetry monitoring Increase activity as tolerated increase use of incentive spirometer encouraged further recommendations pending patient course Nurse practitioner note has been reviewed by physician. Signing provider agrees with the documented findings, assessment, and plan of care. Objective - Vital Signs Vital signs: Vital Signs Temp 97.7 F 07/22/20 08:00 Pulse 67 07/22/20 12:00 Resp 32 H 07/22/20 12:00 BP 116/68 07/22/20 12:00 Pulse Ox 94 L 07/22/20 12:00 Intake & Output 07/21/20 07/22/20 07/22/20 18:59 06:59 18:59 Intake Total 1229.667 637.167 538 Output Total 585 1540 410 Balance 644.667 -902.833 128 Weight 102.4 kg Intake: IV 273 276 138 Sodium Chloride 0.9% 1, 240 240 120 000 ml @ 20 mls/hr IV . Q24H [facility] Rx#:[id number] pressure bag 33 36 18 Intake, IV Titration 86.667 111.167 Amount Diltiazem 125 mg In 86.667 111.167 Sodium Chloride 0.9% 100 ml @ Per Protocol IV .Q0M [facility] Rx#:[id number] Oral 870 250 400 Output: Urine 585 1540 410 Other: Voiding Method Indwelling Catheter Indwelling Catheter Indwelling Catheter ABP, PAP, CO, CI - Last Documented Arterial Blood Pressure 125/61 Pulmonary Artery Pressure 33/14 Cardiac Output 6.7 Cardiac Index 3.1 - Labs CBC & Chem 7: 07/22/20 05:39 07/22/20 05:39 Labs: Abnormal Lab Results - Last 24 Hours (Table) 07/21/20 07/21/20 07/21/20 Range/Units 16:50 16:51 20:45 WBC (3.8-10.6) k/uL RBC (4.30-5.90) m/uL Hgb (13.0-17.5) gm/dL Hct (39.0-53.0) % Neutrophils # (1.3-7.7) k/uL Lymphocytes # (1.0-4.8) k/uL D-Dimer (<0.60) mg/L FEU ABG pCO2 (35-45) mmHg ABG pO2 (83-108) mmHg ABG HCO3 (21-25) mmol/L Sodium (137-145) mmol/L Potassium (3.5-5.1) mmol/L Chloride (98-107) mmol/L Carbon Dioxide (22-30) mmol/L BUN (9-20) mg/dL Creatinine (0.66-1.25) mg/dL Glucose (74-99) mg/dL POC Glucose (mg/dL) 206 H 227 H 165 H (75-99) mg/dL Ionized Calcium Tamara (4.5-5.3) mg/dL Magnesium (1.6-2.3) mg/dL Total Bilirubin (0.2-1.3) mg/dL AST (17-59) U/L ALT (4-49) U/L Alkaline Phosphatase (38-126) U/L Total Protein (6.3-8.2) g/dL Albumin (3.5-5.0) g/dL 07/22/20 07/22/20 07/22/20 Range/Units 04:20 05:39 05:39 WBC 16.8 H (3.8-10.6) k/uL RBC 2.61 L (4.30-5.90) m/uL Hgb 8.8 L (13.0-17.5) gm/dL Hct 25.4 L (39.0-53.0) % Neutrophils # 15.1 H (1.3-7.7) k/uL Lymphocytes # 0.4 L (1.0-4.8) k/uL D-Dimer (<0.60) mg/L FEU ABG pCO2 (35-45) mmHg ABG pO2 (83-108) mmHg ABG HCO3 (21-25) mmol/L Sodium 124 L (137-145) mmol/L Potassium 5.3 H (3.5-5.1) mmol/L Chloride 95 L (98-107) mmol/L Carbon Dioxide 20 L (22-30) mmol/L BUN 45 H (9-20) mg/dL Creatinine 1.62 H (0.66-1.25) mg/dL Glucose 148 H (74-99) mg/dL POC Glucose (mg/dL) (75-99) mg/dL Ionized Calcium Tamara 4.0 L (4.5-5.3) mg/dL Magnesium 2.4 H (1.6-2.3) mg/dL Total Bilirubin 2.2 H (0.2-1.3) mg/dL AST 147 H (17-59) U/L ALT 130 H (4-49) U/L Alkaline Phosphatase 36 L (38-126) U/L Total Protein 5.6 L (6.3-8.2) g/dL Albumin 3.4 L (3.5-5.0) g/dL 07/22/20 07/22/20 07/22/20 Range/Units 06:58 09:58 10:00 WBC (3.8-10.6) k/uL RBC (4.30-5.90) m/uL Hgb (13.0-17.5) gm/dL Hct (39.0-53.0) % Neutrophils # (1.3-7.7) k/uL Lymphocytes # (1.0-4.8) k/uL D-Dimer 1.46 H (<0.60) mg/L FEU ABG pCO2 30 L (35-45) mmHg ABG pO2 72 L (83-108) mmHg ABG HCO3 20 L (21-25) mmol/L Sodium (137-145) mmol/L Potassium (3.5-5.1) mmol/L Chloride (98-107) mmol/L Carbon Dioxide (22-30) mmol/L BUN (9-20) mg/dL Creatinine (0.66-1.25) mg/dL Glucose (74-99) mg/dL POC Glucose (mg/dL) 151 H (75-99) mg/dL Ionized Calcium Tamara (4.5-5.3) mg/dL Magnesium (1.6-2.3) mg/dL Total Bilirubin (0.2-1.3) mg/dL AST (17-59) U/L ALT (4-49) U/L Alkaline Phosphatase (38-126) U/L Total Protein (6.3-8.2) g/dL Albumin (3.5-5.0) g/dL 07/22/20 Range/Units 12:23 WBC (3.8-10.6) k/uL RBC (4.30-5.90) m/uL Hgb (13.0-17.5) gm/dL Hct (39.0-53.0) % Neutrophils # (1.3-7.7) k/uL Lymphocytes # (1.0-4.8) k/uL D-Dimer (<0.60) mg/L FEU ABG pCO2 (35-45) mmHg ABG pO2 (83-108) mmHg ABG HCO3 (21-25) mmol/L Sodium (137-145) mmol/L Potassium (3.5-5.1) mmol/L Chloride (98-107) mmol/L Carbon Dioxide (22-30) mmol/L BUN (9-20) mg/dL Creatinine (0.66-1.25) mg/dL Glucose (74-99) mg/dL POC Glucose (mg/dL) 148 H (75-99) mg/dL Ionized Calcium Tamara (4.5-5.3) mg/dL Magnesium (1.6-2.3) mg/dL Total Bilirubin (0.2-1.3) mg/dL AST (17-59) U/L ALT (4-49) U/L Alkaline Phosphatase (38-126) U/L Total Protein (6.3-8.2) g/dL Albumin (3.5-5.0) g/dL
--- NOTE | 2020-07-22 16:20 | P.PN ---
Subjective Progress Note Date: 07/22/20 Principal diagnosis: CABG Patient has been having difficulty in his breathing, worsening. He has some pleuritic chest pain, unchanged. He has not responded to laxatives he was given earlier, still no bowel movements. No fevers or chills. His urine output has been decent but over the past hour the urine output dropped a little. Albumin was started. Objective - Vital Signs Vital signs: Vital Signs Temp 97.7 F 07/22/20 08:00 Pulse 80 07/22/20 16:09 Resp 32 H 07/22/20 15:00 BP 113/44 07/22/20 15:00 Pulse Ox 98 07/22/20 15:00 Intake & Output 07/21/20 07/22/20 07/22/20 18:59 06:59 18:59 Intake Total 1229.667 637.167 957 Output Total 585 1540 495 Balance 644.667 -902.833 462 Weight 102.4 kg Intake: IV 273 276 457 Albumin Human 5% 250 ml 250 In Empty Bag 1 bag @ 250 mls/hr IVPB ONCE [facility] Rx#: [id number] Sodium Chloride 0.9% 1, 240 240 180 000 ml @ 20 mls/hr IV . Q24H [facility] Rx#:[id number] pressure bag 33 36 27 Intake, IV Titration 86.667 111.167 Amount Diltiazem 125 mg In 86.667 111.167 Sodium Chloride 0.9% 100 ml @ Per Protocol IV .Q0M [facility] Rx#:[id number] Oral 870 250 500 Output: Urine 585 1540 495 Other: Voiding Method Indwelling Catheter Indwelling Catheter Indwelling Catheter ABP, PAP, CO, CI - Last Documented Arterial Blood Pressure 125/61 Pulmonary Artery Pressure 33/14 Cardiac Output 6.7 Cardiac Index 3.1 - Exam Patient seen and examined at bedside. General: non toxic, moderate distress secondary to pain, appears at stated age Derm: warm, dry Head: atraumatic, normocephalic, symmetric Eyes: EOMI, no lid lag, anicteric sclera Mouth: no lip lesion, mucus membranes moist Cardiovascular: S1S2 reg, no murmur, positive posterior tibial pulse bilateral, Lungs: CTA bilateral, no rhonchi, no rales , no accessory muscle use, chest tube and mediastinal tubes in place Abdominal: soft, + tympanic, tender to palpation diffusely no guarding, no appreciable organomegaly Ext: no gross muscle atrophy, trace edema, no contractures Neuro: CN II-XI grossly intact, no focal neuro deficits Psych: Alert, oriented, appropriate affect - Labs CBC & Chem 7: 07/22/20 05:39 07/22/20 05:39 Labs: Abnormal Lab Results - Last 24 Hours (Table) 07/21/20 07/21/20 07/21/20 Range/Units 16:50 16:51 20:45 WBC (3.8-10.6) k/uL RBC (4.30-5.90) m/uL Hgb (13.0-17.5) gm/dL Hct (39.0-53.0) % Neutrophils # (1.3-7.7) k/uL Lymphocytes # (1.0-4.8) k/uL D-Dimer (<0.60) mg/L FEU ABG pCO2 (35-45) mmHg ABG pO2 (83-108) mmHg ABG HCO3 (21-25) mmol/L Sodium (137-145) mmol/L Potassium (3.5-5.1) mmol/L Chloride (98-107) mmol/L Carbon Dioxide (22-30) mmol/L BUN (9-20) mg/dL Creatinine (0.66-1.25) mg/dL Glucose (74-99) mg/dL POC Glucose (mg/dL) 206 H 227 H 165 H (75-99) mg/dL Ionized Calcium Tamara (4.5-5.3) mg/dL Magnesium (1.6-2.3) mg/dL Total Bilirubin (0.2-1.3) mg/dL AST (17-59) U/L ALT (4-49) U/L Alkaline Phosphatase (38-126) U/L Total Protein (6.3-8.2) g/dL Albumin (3.5-5.0) g/dL 07/22/20 07/22/20 07/22/20 Range/Units 04:20 05:39 05:39 WBC 16.8 H (3.8-10.6) k/uL RBC 2.61 L (4.30-5.90) m/uL Hgb 8.8 L (13.0-17.5) gm/dL Hct 25.4 L (39.0-53.0) % Neutrophils # 15.1 H (1.3-7.7) k/uL Lymphocytes # 0.4 L (1.0-4.8) k/uL D-Dimer (<0.60) mg/L FEU ABG pCO2 (35-45) mmHg ABG pO2 (83-108) mmHg ABG HCO3 (21-25) mmol/L Sodium 124 L (137-145) mmol/L Potassium 5.3 H (3.5-5.1) mmol/L Chloride 95 L (98-107) mmol/L Carbon Dioxide 20 L (22-30) mmol/L BUN 45 H (9-20) mg/dL Creatinine 1.62 H (0.66-1.25) mg/dL Glucose 148 H (74-99) mg/dL POC Glucose (mg/dL) (75-99) mg/dL Ionized Calcium Tamara 4.0 L (4.5-5.3) mg/dL Magnesium 2.4 H (1.6-2.3) mg/dL Total Bilirubin 2.2 H (0.2-1.3) mg/dL AST 147 H (17-59) U/L ALT 130 H (4-49) U/L Alkaline Phosphatase 36 L (38-126) U/L Total Protein 5.6 L (6.3-8.2) g/dL Albumin 3.4 L (3.5-5.0) g/dL 07/22/20 07/22/20 07/22/20 Range/Units 06:58 09:58 10:00 WBC (3.8-10.6) k/uL RBC (4.30-5.90) m/uL Hgb (13.0-17.5) gm/dL Hct (39.0-53.0) % Neutrophils # (1.3-7.7) k/uL Lymphocytes # (1.0-4.8) k/uL D-Dimer 1.46 H (<0.60) mg/L FEU ABG pCO2 30 L (35-45) mmHg ABG pO2 72 L (83-108) mmHg ABG HCO3 20 L (21-25) mmol/L Sodium (137-145) mmol/L Potassium (3.5-5.1) mmol/L Chloride (98-107) mmol/L Carbon Dioxide (22-30) mmol/L BUN (9-20) mg/dL Creatinine (0.66-1.25) mg/dL Glucose (74-99) mg/dL POC Glucose (mg/dL) 151 H (75-99) mg/dL Ionized Calcium Tamara (4.5-5.3) mg/dL Magnesium (1.6-2.3) mg/dL Total Bilirubin (0.2-1.3) mg/dL AST (17-59) U/L ALT (4-49) U/L Alkaline Phosphatase (38-126) U/L Total Protein (6.3-8.2) g/dL Albumin (3.5-5.0) g/dL 07/22/20 Range/Units 12:23 WBC (3.8-10.6) k/uL RBC (4.30-5.90) m/uL Hgb (13.0-17.5) gm/dL Hct (39.0-53.0) % Neutrophils # (1.3-7.7) k/uL Lymphocytes # (1.0-4.8) k/uL D-Dimer (<0.60) mg/L FEU ABG pCO2 (35-45) mmHg ABG pO2 (83-108) mmHg ABG HCO3 (21-25) mmol/L Sodium (137-145) mmol/L Potassium (3.5-5.1) mmol/L Chloride (98-107) mmol/L Carbon Dioxide (22-30) mmol/L BUN (9-20) mg/dL Creatinine (0.66-1.25) mg/dL Glucose (74-99) mg/dL POC Glucose (mg/dL) 148 H (75-99) mg/dL Ionized Calcium Tamara (4.5-5.3) mg/dL Magnesium (1.6-2.3) mg/dL Total Bilirubin (0.2-1.3) mg/dL AST (17-59) U/L ALT (4-49) U/L Alkaline Phosphatase (38-126) U/L Total Protein (6.3-8.2) g/dL Albumin (3.5-5.0) g/dL Assessment and Plan Plan: DM 2 - hold metformin - Inulin subcutaneous with sliding scale insulin coverage, check blood sugars every before meals and at bedtime, Levemir added on 07/21. - Blood sugars currently controlled, follow blood sugars closely - A1C from 06/21/2020 5.2, anticipate discharge home back on metformin which may be able to come off in the near future in the outpatient setting. A-fib with RVR On amio Off cardizem gtt Heparin s.q CONNOR on CKD stage III Baseline cr 1.4-1.5 Likely cardiorenal syndrome Try to avoid IV fluids Recheck in am Avoid nephrotoxic meds Consult nephrology Acute hyponatremia Likely sec to renal failure Monitor Pneumoperitoneum suspect secondary to mediastinal chest tubes -Tube d/melody -Resolved. Constipation On Senokot Add MiraLAX Acute blood loss anemia and thrombocytopenia, anticipated outcome of surgery - follow CBC - transfuse as indicated COPD with acute exacerbation - On steroids - Nebs - on spiriva and advair at home Coronary artery disease -Status post coronary artery bypass grafting -Cardiothoracic and cardiology following HTN - meds per CT surgery - follow BP Hypothyroidism status post partial thyroidectomy - synthroid Morbid obesity with BMI 30.5 -Outpatient structured weight loss Chronic: ADDY Jacobs's Thank you for allowing us to participate in the care of this pleasant patient. Do not hesitate to contact us with questions. Someone can be reached from the [facility] hospitalist group all hours of the day at [phone] or via [employer].
[2020-07-22 16:55] LABS: Glucose,Whole Blood 176 mg/dL (75-99)
[2020-07-22] MEDS: polyethylene glycoL 3350 17 GM POWD.PACK PO SCH (17:11)
[2020-07-22 20:41] LABS: Glucose,Whole Blood 111 mg/dL (75-99)
[2020-07-22] MEDS: SENNOSIDES-DOCUSATE SODIUM 1 EACH TAB PO SCH (20:41)
[2020-07-22] MEDS: INSULIN DETEMIR (LEVEMIR) 100 UNIT/ML SYR SQ SCH (20:42)
[2020-07-23] MEDS: methylPREDNISolone SOD SUCCI 125 MG/2 ML VIAL IV SCH ×3 (00:03→12:28)
[2020-07-23 05:27] LABS: Basophils % (A) 0 %; Eosinophils % (A) 0 %; HCT 23.9 % (39.0-53.0); HGB 8.1 gm/dL (13.0-17.5); Lymphocytes # (A) 0.4 k/uL (1.0-4.8); Lymphocytes % (A) 3 %; MCH 33.5 pg (25.0-35.0); MCHC 33.9 g/dL (31.0-37.0); Macrocytosis Slight; Mean Platelet Volume 7.4; Monocytes % (A) 7 %; Neutrophils # (A) 13.5 k/uL (1.3-7.7); Neutrophils % (A) 89 %; Platelet Count 173 k/uL (150-450); Poikilocytosis Slight; RBC 2.41 m/uL (4.30-5.90); RDW 15.8 % (11.5-15.5); WBC 15.2 k/uL (3.8-10.6)
[2020-07-23 05:28] LABS: Albumin 3.4 g/dL (3.5-5.0); Calcium 8.3 mg/dL (8.4-10.2); Potassium 5.3 mmol/L (3.5-5.1); Total Bilirubin 2.1 mg/dL (0.2-1.3); Total Protein 5.6 g/dL (6.3-8.2)
[2020-07-23 06:42] LABS: Glucose,Whole Blood 210 mg/dL (75-99)
[2020-07-23] MEDS: INSULIN ASPART (NovoLOG) 100 UNIT/ML VIAL SQ SCH ×4 (06:48→20:35)
[2020-07-23] MEDS: LEVOTHYROXINE 50 MCG TAB PO SCH (06:49)
[2020-07-23] MEDS: PANTOPRAZOLE 40 MG TABLET PO SCH (06:49)
[2020-07-23] MEDS: BUDESONIDE 1 MG/2 ML NEBU INHALATION SCH ×2 (07:08→20:59)
[2020-07-23] MEDS: IPRATROPIUM-ALBUTEROL 3 ML NEB INHALATION SCH ×4 (07:08→20:59)
[2020-07-23] MEDS: FORMOTEROL FUMARATE 20 MCG/2 ML NEBU INHALATION SCH ×2 (07:10→20:59)
--- NOTE | 2020-07-23 07:45 | XR ---
EXAMINATION TYPE: XR chest 1V portable DATE OF EXAM: 07/23/2020 Comparison: 07/22/2020 Clinical History: 80-year-old male post cardiac surgery Findings: Median sternotomy wires are present post CABG clips in the mediastinum. No appreciable pneumothorax. Continued small right pleural effusion with prominent right greater than left bibasilar opacities wit hout significant change. Heart borderline enlarged. Impression: Continued small right pleural effusion and prominent right greater than left bibasilar atelectasis an d or consolidation.
[2020-07-23] MEDS: bisacodyL 10 MG SUPP RECTAL SCH (08:10)
[2020-07-23] MEDS: METOPROLOL TARTRATE 25 MG TAB PO SCH ×2 (08:10→20:33)
[2020-07-23] MEDS: AMIODARONE 200 MG TAB PO SCH ×2 (08:10→20:33)
[2020-07-23] MEDS: MAGNESIUM HYDROXIDE 2,400 MG/10 ML CUP PO PRN (08:10)
[2020-07-23] MEDS: APIXABAN 5 MG TAB PO SCH ×2 (08:10→20:34)
[2020-07-23] MEDS: ATORVASTATIN 40 MG TAB PO SCH (08:10)
[2020-07-23] MEDS: ASPIRIN 81 MG PO SCH (08:10)
--- NOTE | 2020-07-23 09:01 | P.PN ---
Subjective Progress Note Date: 07/23/20 Principal diagnosis: Symptomatic triple-vessel coronary artery disease, mild left ventricular dysfunction. Previuos medical history of stenting to his right coronary artery in 2002, hypertension, hyperlipidemia, hypothyroid status post partial thyroidectomy, previous tobacco dependence quit smoking 20 years ago, moderate chronic obstructive pulmonary disease with preoperative FEV1 of 56% of predicted value, bullous emphysema, remote history of pneumonia, type 2 diabetes mellitus with a preoperative hemoglobin A1c of 5.2%, chronic kidney disease stage III with a baseline creatinine of 1.4-1.5, family history of premature coronary artery disease with brother having had CABG at less than 50 years old. POD #5 double coronary artery bypass grafting using the left internal mammary artery to left anterior descending coronary artery, reverse greater saphenous vein graft from the aorta to the posterior descending coronary artery. Exclusion of the left atrial appendage using a 35 mm Atriclip, endoscopic harvesting of the right greater saphenous vein from the groin to above the ankle level, graft flow measurement using the Trip4real system, intraoperative transesophageal echocardiogram and epi-aortic scanning. Postoperative acute blood loss anemia, expected outcome from hemodilution and cardiopulmonary bypass. Postoperative paroxysmal atrial fibrillation, unexpected but common outcome after open heart surgery. Pneumoperitoneum, unexpected, likely secondary to mediastinal chest tubes Acute on chronic kidney disease The patient is currently sitting up in a recliner in mild distress. Complains of mild incisional type chest pain controlled on current medication regimen, complains of continued shortness of breath despite oxygen saturations in the mid 90s. ABGs drawn yesterday while on 3LPM NC 7.43/30/72/20/96%/-4.9. Remains in NSR, started on anticoagulation yesterday, continues on amiodarone oral, lopressor increased yesterday. Needs much encouragement to use incentive spirometry and ambulate. Still reports no flautus since surgery, abdomen soft, slightly distended from yesterday, hypoactive bowel sounds present, does complain of discomfort with deep palpation. Patient admits to not eating much. Objective - Vital Signs Vital signs: Vital Signs Temp 98.0 F 07/23/20 04:00 Pulse 80 07/23/20 07:25 Resp 33 H 07/23/20 07:00 BP 147/74 07/23/20 07:00 Pulse Ox 95 12/06/20 07:00 Intake & Output 07/22/20 07/23/20 07/23/20 18:59 06:59 18:59 Intake Total 1003 800 Output Total 625 1460 175 Balance 378 -660 -175 Weight 102.9 kg Intake: IV 503 Albumin Human 5% 250 ml 250 In Empty Bag 1 bag @ 250 mls/hr IVPB ONCE [facility] Rx#: [id number] Sodium Chloride 0.9% 1, 220 000 ml @ 20 mls/hr IV . Q24H [facility] Rx#:[id number] pressure bag 33 Oral 500 800 Output: Urine 625 1460 175 Other: Voiding Method Indwelling Catheter Indwelling Catheter ABP, PAP, CO, CI - Last Documented Arterial Blood Pressure 125/61 Pulmonary Artery Pressure 33/14 Cardiac Output 6.7 Cardiac Index 3.1 - Constitutional General appearance: Present: cooperative, mild distress, obese - Respiratory Details: Lungs sounds diminished bilaterally in the bases. Respirations even, slightly labored. Currently on 3 L nasal cannula with oxygen saturation 95%. Only able to achieve 500 mL on his incentive spirometry today. Strong productive cough. - Cardiovascular Details: S1, S2 present. Regular rate and rhythm, currently sinus rhythm with heart rate in the 70-80s on telemetry. Sternum stable. Palpable peripheral pulses bilate rally. Upper extremity trace generalized edema present. Heart hugger in place with patient demonstrating appropriate use. Antiembolism stockings, SCDs present. - Gastrointestinal Gastrointestinal Comment(s): Abdomen soft, nontender, slightly more distended than yesterday. Hypoactive bowel sounds present. Tolerating minimal diet with some nausea. Denies flatus, positive belching - Genitourinary Genitourinary Comment(s): Villafana present draining clear, yellow urine. Output 75-250 mL per hour overnight, 2085 mL in the last 24 hours - Integumentary Integumentary Comment(s): Skin is warm and dry with evidence of good perfusion. Anterior chest incision well approximated and covered with dry intact dressing. Right lower extremity EVH site well approximated - Neurologic Neurologic: Present: CNII-XII intact - Musculoskeletal Musculoskeletal: Present: gait normal, generalized weakness, strength equal bilaterally - Psychiatric Psychiatric Comment(s): Very unmotivated Psychiatric: Present: A&O x's 3, appropriate affect - Allied health notes Allied health notes reviewed: nursing - Labs CBC & Chem 7: 07/23/20 03:54 07/23/20 03:54 Labs: Abnormal Lab Results - Last 24 Hours (Table) 07/22/20 07/22/20 07/22/20 Range/Units 09:58 10:00 12:23 WBC (3.8-10.6) k/uL RBC (4.30-5.90) m/uL Hgb (13.0-17.5) gm/dL Hct (39.0-53.0) % RDW (11.5-15.5) % Neutrophils # (1.3-7.7) k/uL Lymphocytes # (1.0-4.8) k/uL D-Dimer 1.46 H (<0.60) mg/L FEU ABG pCO2 30 L (35-45) mmHg ABG pO2 72 L (83-108) mmHg ABG HCO3 20 L (21-25) mmol/L Sodium (137-145) mmol/L Potassium (3.5-5.1) mmol/L Chloride (98-107) mmol/L Carbon Dioxide (22-30) mmol/L BUN (9-20) mg/dL Creatinine (0.66-1.25) mg/dL Glucose (74-99) mg/dL POC Glucose (mg/dL) 148 H (75-99) mg/dL Calcium (8.4-10.2) mg/dL Total Bilirubin (0.2-1.3) mg/dL AST (17-59) U/L ALT (4-49) U/L Alkaline Phosphatase (38-126) U/L Total Protein (6.3-8.2) g/dL Albumin (3.5-5.0) g/dL 07/22/20 07/22/20 07/23/20 Range/Units 16:54 20:40 03:54 WBC 15.2 H (3.8-10.6) k/uL RBC 2.41 L (4.30-5.90) m/uL Hgb 8.1 L (13.0-17.5) gm/dL Hct 23.9 L (39.0-53.0) % RDW 15.8 H (11.5-15.5) % Neutrophils # 13.5 H (1.3-7.7) k/uL Lymphocytes # 0.4 L (1.0-4.8) k/uL D-Dimer (<0.60) mg/L FEU ABG pCO2 (35-45) mmHg ABG pO2 (83-108) mmHg ABG HCO3 (21-25) mmol/L Sodium (137-145) mmol/L Potassium (3.5-5.1) mmol/L Chloride (98-107) mmol/L Carbon Dioxide (22-30) mmol/L BUN (9-20) mg/dL Creatinine (0.66-1.25) mg/dL Glucose (74-99) mg/dL POC Glucose (mg/dL) 176 H 111 H (75-99) mg/dL Calcium (8.4-10.2) mg/dL Total Bilirubin (0.2-1.3) mg/dL AST (17-59) U/L ALT (4-49) U/L Alkaline Phosphatase (38-126) U/L Total Protein (6.3-8.2) g/dL Albumin (3.5-5.0) g/dL 07/23/20 07/23/20 Range/Units 03:54 06:40 WBC (3.8-10.6) k/uL RBC (4.30-5.90) m/uL Hgb (13.0-17.5) gm/dL Hct (39.0-53.0) % RDW (11.5-15.5) % Neutrophils # (1.3-7.7) k/uL Lymphocytes # (1.0-4.8) k/uL D-Dimer (<0.60) mg/L FEU ABG pCO2 (35-45) mmHg ABG pO2 (83-108) mmHg ABG HCO3 (21-25) mmol/L Sodium 124 L (137-145) mmol/L Potassium 5.3 H (3.5-5.1) mmol/L Chloride 94 L (98-107) mmol/L Carbon Dioxide 21 L (22-30) mmol/L BUN 57 H (9-20) mg/dL Creatinine 1.84 H (0.66-1.25) mg/dL Glucose 164 H (74-99) mg/dL POC Glucose (mg/dL) 210 H (75-99) mg/dL Calcium 8.3 L (8.4-10.2) mg/dL Total Bilirubin 2.1 H (0.2-1.3) mg/dL AST 136 H (17-59) U/L ALT 193 H (4-49) U/L Alkaline Phosphatase 36 L (38-126) U/L Total Protein 5.6 L (6.3-8.2) g/dL Albumin 3.4 L (3.5-5.0) g/dL - Imaging and Cardiology Chest x-ray: report reviewed, image reviewed Assessment and Plan Assessment: 1. Symptomatic triple-vessel coronary artery disease, status post 2 vessel CABG 2. Mild left ventricular dysfunction 3. Previuos history of stenting to his right coronary artery in 2002 4. Hypertension 5. Hyperlipidemia 6. Hypothyroid status post partial thyroidectomy 7. Previous tobacco dependence with bullous emphysema 8. Moderate chronic obstructive pulmonary disease with preoperative FEV1 of 56% of predicted value 9. Remote history of pneumonia 10. Type 2 diabetes mellitus with a preoperative hemoglobin A1c of 5.2% 11. Chronic kidney disease stage III with a baseline creatinine of 1.4-1.5 12. Family history of premature coronary artery disease with brother having had CABG at less than 50 years old 13. Postoperative acute blood loss anemia, expected outcome 14. Postoperative paroxysmal atrial fibrillation, unexpected, status post exclusion of the left atrial appendage 15. Pneumoperitoneum, unexpected 16. Acute on chronic kidney disease with hyponatremia, hyperkalemia Plan: 1. Continue low dose aspirin, statin, and beta apolinar. 2. Continue amiodarone for afib prophylaxis. Continue Eliquis for antic oagulation 3. Wean oxygen as tolerated. Encourage incentive spirometry use 10 times every hour while awake. Bronchodilators, steroids per pulmonology management. 4. Increase activity, ambulate minimum 4x daily, out of bed for all meals. PT/OT/cardiac rehab consulted. 5. Will monitor daily labs and chest x-rays. Electrolyte replacement per protocol. 6. GI/DVT prophylaxis. 7. Pain control with current medication regimen. 8. Insulin management per Dr. Polk 9. Dulcolax suppository daily until bowel movement, continue stool softners, miralax added per PCP, will give MOM/prune juice today 10. Discontinue Villafana catheter. May bladder scan and straight cath for >300 mL residual 11. Nephrology consulted, appreciate recommendations. Avoid nephrotoxic agents 12. Strict accurate intake and output, daily weight with stand upscale, not bed scale 13. More recommendations to follow based on patient's clinical course. Time with Patient: Greater than 30
--- NOTE | 2020-07-23 09:24 | P.NPCON ---
History of Present Illness - Reason for Consult acute renal failure, chronic renal failure, hyponatremia - History of Present Illness Reason for consultation: Acute kidney injury on chronic kidney disease and hyponatremia History of present illness: Patient is a 80-year-old male seen in consultation for acute kidney injury on chronic kidney disease and hyponatremia. Patient has chronic kidney disease s tage III with baseline creatinine near 1.2-1.5. Creatinine today is 1.84. Patient presented to the hospital on July 18 and underwent two-vessel CABG. He is currently in the intensive care unit. He does admit to shortness of breath even with minimal exertion. Oral intake is poor. He does admit to drinking quite a bit of fluids. No vomiting or diarrhea. No significant pain. He does have history of diabetes mellitus and is maintained on oral medications. He did receive IV albumin yesterday. He is not on any IV fluids. He denies regular use of nonsteroidals. Denies family history of renal disease. 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 Patient's sodium level was 138 on admission and has been gradually dropping. He was 124 yesterday and also this morning. He does complain of swelling in his lower extremities. Blood pressure stable. Vital signs are stable. General: The patient appeared well nourished and normally developed. HEENT: Head exam is unremarkable. Neck is without jugular venous distension. LUNGS: Breath sounds decreased. HEART: Rate and Rhythm are regular. ABDOMEN: Soft, nontender. EXTREMITITES: 1+ edema. 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, pneumonia in November, some decreased kidney function History of Any Multi-Drug Resistant Organisms: None Reported Past Surgical History: Heart Catheterization, Heart Catheterization With Stent Additional Past Surgical History / Comment(s): 1/2 thyroid removed, nessa cataract removal & lens implanted, lasik on nessa eyes, EGD Past Anesthesia/Blood Transfusion Reactions: No Reported Reaction Date of Last Stent Placement:: 2001 Past Psychological History: No Psychological Hx Reported Smoking Status: Former smoker Past Alcohol Use History: Occasional Additional Past Alcohol Use History / Comment(s): Drinks 2-3 glasses of wine approximately once a week-not lately, quit smoking 20 years ago Past Drug Use History: None Reported - Past Family History Mother Family Medical History: Cancer Additional Family Medical History / Comment(s): sx: appendix; CA: breast ( from) Father Family Medical History: COPD, CVA/TIA Additional Family Medical History / Comment(s): CVA in 1978 ( from), sinus sx Medications and Allergies Home Medications Medication Instructions Recorded Confirmed Type Albuterol Inhaler (Mhu) [Ventolin 2 puff INHALATION RT-QID PRN 12/11/15 07/14/20 History Hfa Inhaler] Aspirin [Adult Low Dose Aspirin EC] 81 mg PO DAILY 12/11/15 07/14/20 History Calcium Carbonate/Vitamin D3 1 tab PO W/LUNCH 12/11/15 07/18/20 History [Calcium 600 + Vit D 400 Tablet] Fluticasone/Salmeterol [Advair 1 puff INHALATION RT-BID 12/11/15 07/14/20 History 500-50 Diskus] Levothyroxine Sodium [Synthroid] 50 mcg PO DAILY 12/11/15 07/18/20 History Losartan Potassium [Cozaar] 100 mg PO DAILY 12/11/15 07/18/20 History Metoprolol Succinate (ER) [Toprol 100 mg PO DAILY 12/11/15 07/18/20 History Xl] Multivitamin [Men's Multi-Vitamin] 1 tab PO W/LUNCH 12/11/15 07/18/20 History Tiotropium 18 Mcg/Puff [Spiriva] 1 cap INHALATION RT-DAILY 12/11/15 07/14/20 History metFORMIN HCL [Glucophage] 500 mg PO PC-SUPPER 12/11/15 07/18/20 History Ipratropium [place] 0.06%Nasal 1 spray EA NOSTRIL QID PRN 12/04/19 07/18/20 History [Atrovent Nasal 0.06%] Isosorbide Mononitrate [Isosorbide 30 mg PO DAILY 06/20/20 07/18/20 History Mononitrate ER] Atorvastatin [Lipitor] 40 mg PO HS 07/14/20 07/18/20 History Fluticasone Nasal [place] [Flonase 2 spr EA NOSTRIL DAILY PRN 07/14/20 07/18/20 History Nasal [place]] Mupirocin 2% Oint [Bactroban 2% 1 applic NASAL BID 07/14/20 07/18/20 History Oint] Nitroglycerin Sl Tabs [Nitrostat] 0.4 mg SUBLINGUAL Q5M PRN 07/14/20 07/14/20 History Allergies Allergy/AdvReac Type Severity Reaction Status Date / Time No Known Allergies Allergy Verified 07/14/20 12:50 Physical Exam Vitals: Vital Signs Temp Pulse Resp BP Pulse Ox 07/23/20 07:25 80 07/23/20 07:10 78 07/23/20 07:00 77 33 H 147/74 95 07/23/20 06:00 89 31 H 127/78 94 L 07/23/20 05:00 87 31 H 153/72 98 07/23/20 04:00 98.0 F 92 30 H 163/72 98 07/23/20 03:00 97 35 H 163/57 97 07/23/20 02:00 107 H 37 H 157/81 92 L 07/23/20 01:00 96 32 H 142/74 95 07/23/20 00:05 91 30 H 142/74 94 L 07/23/20 00:00 97.7 F 91 32 H 152/83 95 07/22/20 23:00 95 26 H 144/84 95 07/22/20 22:00 90 36 H 156/44 95 07/22/20 21:00 108 H 28 H 138/75 94 L 07/22/20 20:00 97.2 F L 98 19 140/73 96 07/22/20 19:21 80 07/22/20 19:07 82 07/22/20 19:06 80 07/22/20 19:00 83 32 H 135/71 97 07/22/20 18:52 84 07/22/20 18:30 95 32 H 135/71 97 07/22/20 18:00 95 31 H 127/62 97 07/22/20 17:30 102 H 28 H 127/62 98 07/22/20 17:00 101 H 30 H 110/96 98 07/22/20 16:30 103 H 34 H 110/96 98 07/22/20 16:09 80 07/22/20 16:00 97.6 F 82 35 H 116/46 98 07/22/20 15:52 84 07/22/20 15:30 70 33 H 116/46 98 07/22/20 15:00 76 32 H 113/44 98 07/22/20 14:30 69 35 H 113/44 96 07/22/20 14:00 72 34 H 100/56 97 07/22/20 13:30 65 24 100/56 97 07/22/20 13:00 75 32 H 114/40 96 07/22/20 12:30 70 38 H 111/98 98 07/22/20 12:00 67 32 H 116/68 94 L 07/22/20 11:30 78 07/22/20 11:21 72 07/22/20 11:00 77 33 H 116/68 94 L 07/22/20 10:30 80 19 129/70 93 L 07/22/20 10:00 80 28 H 142/71 93 L 07/22/20 09:30 78 27 H 142/71 92 L Intake and Output 07/22/20 07/23/20 07/23/20 22:59 06:59 14:59 Intake Total 446 400 Output Total 415 1175 175 Balance 31 -775 -175 Intake: IV 46 Sodium Chloride 0.9% 1, 40 000 ml @ 20 mls/hr IV . Q24H [facility] Rx#:[id number] pressure bag 6 Oral 400 400 Output: Urine 415 1175 175 Other: Voiding Method Indwelling Catheter Indwelling Catheter Weight 102.9 kg ABP, PAP, CO, CI - Last 8 Hours Cardiac Output 6.7 Cardiac Output 6.7 Cardiac Output 6.7 Cardiac Output 6.7 Cardiac Index 3.1 Cardiac Index 3.1 Cardiac Index 3.1 Cardiac Index 3.1 Results - Lab Results Most recent lab results ABG pH 7.43 (7.35-7.45) 07/22/20 09:58 ABG pCO2 30 mmHg (35-45) L 07/22/20 09:58 ABG pO2 72 mmHg (83-108) L 07/22/20 09:58 ABG HCO3 20 mmol/L (21-25) L 07/22/20 09:58 ABG O2 Saturation 96.0 % (94-97) 07/22/20 09:58 Calcium 8.3 mg/dL (8.4-10.2) L 07/23/20 03:54 Magnesium 2.4 mg/dL (1.6-2.3) H 07/22/20 05:39 07/23/20 03:54 07/23/20 03:54 Assessment and Plan Plan: Assessment: 1. Acute kidney injury secondary to hemodynamic ATN. Also received IV contrast on July 19. Creatinine 1.84 today. No hydronephrosis noted on computed tomography scan. 2. Chronic kidney disease stage III with baseline creatinine in the range of 1.2-1.5 secondary to nephrosclerosis. UA from June 2020 was benign. 3. Coronary artery disease status post 2 vessel CABG on July 18. 4. Hyponatremia secondary to poor solute intake. Slightly hypervolemic. 5. Metabolic acidosis secondary to acute kidney injury. 6. Diabetes mellitus. Plan: 1200 mL fluid restriction. Encourage oral intake, particularly protein. Add ensure 3 times daily. Lasix 40 mg IV once today. Check serum and urine osmolality and urine sodium level. Avoid nephrotoxins. Continue to monitor renal function and urine output. Check urinalysis. Thank you for the consultation. I will continue to follow the patient with you during his hospital stay.
--- NOTE | 2020-07-23 09:36 | P.PN ---
Subjective Progress Note Date: 07/23/20 HISTORY OF PRESENT ILLNESS: Patient is status post CABG 2. Postoperative day #5. Patient examined this morning the intensive care unit. Patient is sitting up in the chair. Patient denies chest pain or pressure. He reports shortness of breath. He remains on 3 L nasal cannula with oxygen saturations greater than 92%. Patient continues to need a lot of encouragement to use his incentive spirometer. W BC 15.2. Hemoglobin 8.1. Sodium 124. Potassium 5.3. Creatinine 1.87. Blood pressure stable this morning at 147/74. PHYSICAL EXAM: VITAL SIGNS: Reviewed. GENERAL: Well-developed in no acute distress-up short of breath during examination. NECK: Supple. No JVD or thyromegaly LUNGS: Respirations even and unlabored. Lungs diminished bilaterally. HEART: Regular rate and rhythm. S1 and S2 heard. EXTREMITIES: Normal range of motion. No clubbing or cyanosis. Peripheral pulses intact. No lower extremity edema ASSESSMENT: #1 status post two-vessel bypass grafting #2 known history of coronary artery disease with prior RCA stenting in 2002 #3 hyperlipidemia #4 hypertension #5 diabetes #6 hypothyroidism #7 chronic kidney disease #8 history of nicotine dependence #9 moderately severe chronic obstructive pulmonary disease #10 paroxysmal atrial fibrillation #11 shortness of breath, multifactorial secondary to anemia, atelectasis, and small right pleural effusion PLAN: Continue current cardiac medications Continue Eliquis for anticoagulation Continue telemetry monitoring Increase activity as tolerated Increase use of incentive spirometer encouraged Further recommendations pending patient course Nurse practitioner note has been reviewed by physician. Signing provider agrees with the documented findings, assessment, and plan of care. Objective - Vital Signs Vital signs: Vital Signs Temp 98.0 F 07/23/20 04:00 Pulse 80 07/23/20 07:25 Resp 33 H 07/23/20 07:00 BP 147/74 07/23/20 07:00 Pulse Ox 95 07/23/20 07:00 Intake & Output 07/22/20 07/23/20 07/23/20 18:59 06:59 18:59 Intake Total 1003 800 Output Total 625 1460 175 Balance 130 -062 -175 Weight 102.9 kg Intake: IV 503 Albumin Human 5% 250 ml 250 In Empty Bag 1 bag @ 250 mls/hr IVPB ONCE STA Rx#: [id number] Sodium Chloride 0.9% 1, 220 000 ml @ 20 mls/hr IV . Q24H [facility] Rx#:[id number] pressure bag 33 Oral 500 800 Output: Urine 625 1460 175 Other: Voiding Method Indwelling Catheter Indwelling Catheter ABP, PAP, CO, CI - Last Documented Arterial Blood Pressure 125/61 Pulmonary Artery Pressure 33/14 Cardiac Output 6.7 Cardiac Index 3.1 - Labs CBC & Chem 7: 07/23/20 03:54 07/23/20 03:54 Labs: Abnormal Lab Results - Last 24 Hours (Table) 07/22/20 07/22/20 07/22/20 Range/Units 09:58 10:00 12:23 WBC (3.8-10.6) k/uL RBC (4.30-5.90) m/uL Hgb (13.0-17.5) gm/dL Hct (39.0-53.0) % RDW (11.5-15.5) % Neutrophils # (1.3-7.7) k/uL Lymphocytes # (1.0-4.8) k/uL D-Dimer 1.46 H (<0.60) mg/L FEU ABG pCO2 30 L (35-45) mmHg ABG pO2 72 L (83-108) mmHg ABG HCO3 20 L (21-25) mmol/L Sodium (137-145) mmol/L Potassium (3.5-5.1) mmol/L Chloride (98-107) mmol/L Carbon Dioxide (22-30) mmol/L BUN (9-20) mg/dL Creatinine (0.66-1.25) mg/dL Glucose (74-99) mg/dL POC Glucose (mg/dL) 148 H (75-99) mg/dL Calcium (8.4-10.2) mg/dL Total Bilirubin (0.2-1.3) mg/dL AST (17-59) U/L ALT (4-49) U/L Alkaline Phosphatase (38-126) U/L Total Protein (6.3-8.2) g/dL Albumin (3.5-5.0) g/dL 07/22/20 07/22/20 07/23/20 Range/Units 16:54 20:40 03:54 WBC 15.2 H (3.8-10.6) k/uL RBC 2.41 L (4.30-5.90) m/uL Hgb 8.1 L (13.0-17.5) gm/dL Hct 23.9 L (39.0-53.0) % RDW 15.8 H (11.5-15.5) % Neutrophils # 13.5 H (1.3-7.7) k/uL Lymphocytes # 0.4 L (1.0-4.8) k/uL D-Dimer (<0.60) mg/L FEU ABG pCO2 (35-45) mmHg ABG pO2 (83-108) mmHg ABG HCO3 (21-25) mmol/L Sodium (137-145) mmol/L Potassium (3.5-5.1) mmol/L Chloride (98-107) mmol/L Carbon Dioxide (22-30) mmol/L BUN (9-20) mg/dL Creatinine (0.66-1.25) mg/dL Glucose (74-99) mg/dL POC Glucose (mg/dL) 176 H 111 H (75-99) mg/dL Calcium (8.4-10.2) mg/dL Total Bilirubin (0.2-1.3) mg/dL AST (17-59) U/L ALT (4-49) U/L Alkaline Phosphatase (38-126) U/L Total Protein (6.3-8.2) g/dL Albumin (3.5-5.0) g/dL 07/23/20 07/23/20 Range/Units 03:54 06:40 WBC (3.8-10.6) k/uL RBC (4.30-5.90) m/uL Hgb (13.0-17.5) gm/dL Hct (39.0-53.0) % RDW (11.5-15.5) % Neutrophils # (1.3-7.7) k/uL Lymphocytes # (1.0-4.8) k/uL D-Dimer (<0.60) mg/L FEU ABG pCO2 (35-45) mmHg ABG pO2 (83-108) mmHg ABG HCO3 (21-25) mmol/L Sodium 124 L (137-145) mmol/L Potassium 5.3 H (3.5-5.1) mmol/L Chloride 94 L (98-107) mmol/L Carbon Dioxide 21 L (22-30) mmol/L BUN 57 H (9-20) mg/dL Creatinine 1.84 H (0.66-1.25) mg/dL Glucose 164 H (74-99) mg/dL POC Glucose (mg/dL) 210 H (75-99) mg/dL Calcium 8.3 L (8.4-10.2) mg/dL Total Bilirubin 2.1 H (0.2-1.3) mg/dL AST 136 H (17-59) U/L ALT 193 H (4-49) U/L Alkaline Phosphatase 36 L (38-126) U/L Total Protein 5.6 L (6.3-8.2) g/dL Albumin 3.4 L (3.5-5.0) g/dL
--- NOTE | 2020-07-23 11:12 | P.PN ---
Progress Note - Text Progress Note Date: 07/23/20 Patient appears to be doing well. He has no real complete abdominal pain. On exam her vital signs are stable. Abdomen soft. Patient to receive supportive care.
[2020-07-23 12:18] LABS: Glucose,Whole Blood 169 mg/dL (75-99)
[2020-07-23] MEDS: polyethylene glycoL 3350 17 GM POWD.PACK PO SCH (12:29)
--- NOTE | 2020-07-23 12:40 | P.PN ---
Subjective Progress Note Date: 07/23/20 Principal diagnosis: Coronary artery disease, status post three-vessel bypass grafting 79-year-old white male patient with past medical history of hypertension, hyperlipidemia, moderate to severe COPD with the baseline FEV1 of 56% of predicted who came in on 07/18/2020 for elective two-vessel bypass grafting with PABLO to LAD, and SVG to the PDA. He was seen in the intensive care unit following surgery, patient was successfully weaned and extubated from mechanical ventilator and under 6 hours following his OR exit, is currently awake and alert, sitting in the chair, he is currently on 2 L of oxygen, his pulse ox is 98%, hemodynamically he stable, blood pressure is 106/51, PA pressures 35/11, CVP is 8, no fever or chills, IV fluids including the 0.9 normal saline at a r ate of 30 ML per hour, insulin is 4.5 units per hour, no vasoactive drips. Today's chest x-ray shows a pneumoperitoneum with lucency present underneath the right hemidiaphragm. He has left pleural and mediastinal chest tube, and there has been 500 mL of serosanguineous output from the left pleural and 350 mL from the mediastinal chest tube in the last 24 hours. Is having some mild discomfort under the right rib cage, but no acute distress, abdomen is distended but soft, he is hemodynamically stable, he is in sinus mechanism, no nausea vomiting or diarrhea. CT of the abdomen and pelvis is pending today's labs have been reviewed, showing white blood cell count of 11.9, hemoglobin of 9, sodium is 133, the rest of the electrolytes were within normal limits, B1 is 25 creatinine is 1.18 The patient is seen today 07/20/2020 in follow-up in the intensive care unit. He is currently sitting up in a chair at the bedside. Awake and alert in no acute distress. This is postoperative day #2, two-vessel coronary artery bypass surgery. He is currently on 2 L/m per nasal cannula maintaining good O2 saturation in the 90s. He did have issues with atrial fibrillation and is currently on Cardizem drip at 10 mg per hour. He did receive IV amiodarone, initiated on by mouth today. 0.9 normal saline at KVO. Chest x-ray reveals removal of mediastinal drains. Right-sided pneumoperitoneum is no longer appreciated. Left-sided chest tube remains in place. Bibasilar patchy atelectasis remains. White count 18.2. Hemoglobin 8.9. Platelet count 99,000. Sodium 127. Potassium 5.0. Creatinine 1.37. He is pulling approximately 0416-4680 ML's on the incentive spirometer. Continued on bronchodilators. Heparin for DVT prophylaxis. Patient is seen today 07/22/2020 in follow-up on the intensive care unit. He is currently sitting up in a chair at the bedside. He is having complaints of increasing shortness of breath. He is doing less on his incentive spirometer. Chest x-ray reveals small right pleural effusion with adjacent atelectasis and/or consolidation. He is currently maintaining O2 saturations in the low 90s on 3 L/m per nasal cannula. Respiratory rate 32. He is afebrile. Blood pressure stable. He did have issues with atrial fibrillation with rapid ventricular response last evening. He is on a Cardizem drip at 10 mg per hour. He will be transitioned to Eliquis. On oral amiodarone. 0.9 normal saline at 20 ML's per hour. Currently in sinus rhythm. White count 16.8. Hemoglobin 8.8. Sodium 124. Potassium 5.3. Bicarb 20. Creatinine 1.62. AST 147. ALT 130. He is still having issues with hypoactive bowel and not passing flatus or bowel movement since surgery. He remains on bronchodilators and IV Solu-Medrol. The patient is seen today 07/23/2020 in follow-up in the intensive care unit. Postoperative day #5. He is awake and alert in no acute distress. Currently sitting up in a chair at the bedside. He is feeling stronger today. Less short of breath. Maintaining O2 saturations in the 90s on 3 L/m per nasal cannula. Chest x-ray continues to show a small right pleural effusion with prominent right greater than left basilar atelectasis. He is doing better with his incentive spirometer. White count 15.2. Hemoglobin 81.1. Sodium 124. Potassium 5.3. Creatinine 1.84. AST 136. ALT 193. Albumin 3.4. No IV fluids currently. Is continued on bronchodilators, IV Solu-Medrol, anticoagulated with Eliquis. Still has not had a bowel movement. Objective - Vital Signs Vital signs: Vital Signs Temp 97.8 F 12/06/20 12:00 Pulse 71 07/23/20 12:00 Resp 26 H 07/23/20 12:00 BP 125/68 07/23/20 12:00 Pulse Ox 97 07/23/20 12:00 Intake & Output 07/22/20 07/23/20 07/23/20 18:59 06:59 18:59 Intake Total 1003 800 350 Output Total 625 1460 325 Balance 378 -660 25 Weight 102.9 kg Intake: IV 503 Albumin Human 5% 250 ml 250 In Empty Bag 1 bag @ 250 mls/hr IVPB ONCE STA Rx#: [id number] Sodium Chloride 0.9% 1, 220 000 ml @ 20 mls/hr IV . Q24H [facility] Rx#:[id number] pressure bag 33 Oral 500 800 350 Output: Urine 625 1460 325 Other: Voiding Method Indwelling Catheter Indwelling Catheter Indwelling Catheter # Voids 1 ABP, PAP, CO, CI - Last Documented Arterial Blood Pressure 125/61 Pulmonary Artery Pressure 33/14 Cardiac Output 6.7 Cardiac Index 3.1 - Exam GENERAL EXAM: Alert, very pleasant, 79-year-old male patient, on 3 L of oxygen, sitting up in the recliner, in the ICU, fairly comfortable in no apparent distress. HEAD: Normocephalic/atraumatic. EYES: Normal reaction of pupils, equal size. Conjunctiva pink, sclera white. NOSE: Clear with pink turbinates. THROAT: No erythema or exudates. NECK: No masses, no JVD, no thyroid enlargement, no adenopathy. CHEST: No chest wall deformity. Symmetrical expansion. Midsternal incision is clean dry and intact LUNGS: Equal air entry with scattered crackles in the bases. CVS: Regular rate and rhythm, normal S1 and S2, no gallops, no murmurs, no rubs ABDOMEN: Slightly distended, nontender. No hepatosplenomegaly, hypoactive bowel sounds, no guarding or rigidity. EXTREMITIES: No clubbing, no edema, no cyanosis, 2+ pulses and upper and lower extremities. MUSCULOSKELETAL: Muscle strength and tone normal. SPINE: No scoliosis or deformity SKIN: No rashes CENTRAL NERVOUS SYSTEM: No focal deficits, tone is normal in all 4 extremities. PSYCHIATRIC: Alert and oriented -3. Appropriate affect. Intact judgment and insight. - Labs CBC & Chem 7: 07/23/20 03:54 07/23/20 03:54 Labs: Abnormal Lab Results - Last 24 Hours (Table) 07/22/20 07/22/20 07/23/20 Range/Units 16:54 20:40 03:54 WBC 15.2 H (3.8-10.6) k/uL RBC 2.41 L (4.30-5.90) m/uL Hgb 8.1 L (13.0-17.5) gm/dL Hct 23.9 L (39.0-53.0) % RDW 15.8 H (11.5-15.5) % Neutrophils # 13.5 H (1.3-7.7) k/uL Lymphocytes # 0.4 L (1.0-4.8) k/uL Sodium (137-145) mmol/L Potassium (3.5-5.1) mmol/L Chloride (98-107) mmol/L Carbon Dioxide (22-30) mmol/L BUN (9-20) mg/dL Creatinine (0.66-1.25) mg/dL Glucose (74-99) mg/dL POC Glucose (mg/dL) 176 H 111 H (75-99) mg/dL Calcium (8.4-10.2) mg/dL Total Bilirubin (0.2-1.3) mg/dL AST (17-59) U/L ALT (4-49) U/L Alkaline Phosphatase (38-126) U/L Total Protein (6.3-8.2) g/dL Albumin (3.5-5.0) g/dL 07/23/20 07/23/20 07/23/20 Range/Units 03:54 06:40 12:16 WBC (3.8-10.6) k/uL RBC (4.30-5.90) m/uL Hgb (13.0-17.5) gm/dL Hct (39.0-53.0) % RDW (11.5-15.5) % Neutrophils # (1.3-7.7) k/uL Lymphocytes # (1.0-4.8) k/uL Sodium 124 L (137-145) mmol/L Potassium 5.3 H (3.5-5.1) mmol/L Chloride 94 L (98-107) mmol/L Carbon Dioxide 21 L (22-30) mmol/L BUN 57 H (9-20) mg/dL Creatinine 1.84 H (0.66-1.25) mg/dL Glucose 164 H (74-99) mg/dL POC Glucose (mg/dL) 210 H 169 H (75-99) mg/dL Calcium 8.3 L (8.4-10.2) mg/dL Total Bilirubin 2.1 H (0.2-1.3) mg/dL AST 136 H (17-59) U/L ALT 193 H (4-49) U/L Alkaline Phosphatase 36 L (38-126) U/L Total Protein 5.6 L (6.3-8.2) g/dL Albumin 3.4 L (3.5-5.0) g/dL Assessment and Plan Assessment: 1 Symptomatic coronary artery disease, status post two-vessel coronary artery bypass grafting with PABLO to the LAD, SVG to the PDA, postoperative day #5 2 Postoperative atrial fibrillation with rapid ventricular response requiring amiodarone and Cardizem, initiated on Eliquis 3 History of coronary artery disease with previous stent placement 4 Routine postoperative ventilator management, and patient was successfully extubated on postoperative day 0 and under 6 hours of OR exit 5 Constipation 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 9 Acute on chronic kidney disease stage III at baseline 10 Diabetes mellitus type 2 11 Postoperative acute blood loss anemia, expected outcome of open heart surgery 12 History of hypertension 13 History of hyperlipidemia 14 Pneumoperitoneum, unexpected suspect secondary to mediastinal chest tubes Plan: The patient was seen and evaluated by Dr. Meyers Chest x-ray and labs reviewed Increase his activity as tolerated Titrate down the FiO2 as tolerated Continue bronchodilators IS, and IV Solu-Medrol Receiving stool softeners and laxatives We will continue to follow and make further recommendations based on his clinical status I, the cosigning physician, performed a history & physical examination of the patient. Lungs sounds with basilar crackles. Maintaining good O2 saturations in the 90s on 3 L/m per nasal cannula. I discussed the assessment and plan of care with my nurse practitioner, Olga Marin. I attest to the above note as dictated b y her.
[2020-07-23] MEDS ORDERED: SODIUM POLYSTYRENE SULFONATE 15 GM/60 ML BOTTLE PO STA (15:35)
--- NOTE | 2020-07-23 15:35 | P.PN ---
Subjective Progress Note Date: 07/23/20 Principal diagnosis: CABG Patient had a bowel movement today he is currently feeling better after a long period of constipation. His breathing is easing up. No significant chest pain. No fevers or chills. He does not have much of an appetite. Objective - Vital Signs Vital signs: Vital Signs Temp 97.8 F 07/23/20 12:00 Pulse 75 07/23/20 14:00 Resp 31 H 07/23/20 14:00 BP 122/57 07/23/20 14:00 Pulse Ox 98 07/23/20 14:00 Intake & Output 07/22/20 07/23/20 07/23/20 18:59 06:59 18:59 Intake Total 1003 800 500 Output Total 625 1460 325 Balance 378 -660 175 Weight 102.9 kg Intake: IV 503 Albumin Human 5% 250 ml 250 In Empty Bag 1 bag @ 250 mls/hr IVPB ONCE STA Rx#: [id number] Sodium Chloride 0.9% 1, 220 000 ml @ 20 mls/hr IV . Q24H [facility] Rx#:[id number] pressure bag 33 Oral 500 800 500 Output: Urine 625 1460 325 Other: Voiding Method Indwelling Catheter Indwelling Catheter Indwelling Catheter # Voids 0 ABP, PAP, CO, CI - Last Documented Arterial Blood Pressure 125/61 Pulmonary Artery Pressure 33/14 Cardiac Output 6.7 Cardiac Index 3.1 - Exam Patient seen and examined at bedside. General: non toxic, moderate distress secondary to pain, appears at stated age Derm: warm, dry Head: atraumatic, normocephalic, symmetric Eyes: EOMI, no lid lag, anicteric sclera Mouth: no lip lesion, mucus membranes moist Cardiovascular: S1S2 reg, no murmur, positive posterior tibial pulse bilateral, Lungs: CTA bilateral, no rhonchi, no rales , no accessory muscle use, chest tube and mediastinal tubes in place Abdominal: soft, + tympanic, tender to palpation diffusely no guarding, no appreciable organomegaly Ext: no gross muscle atrophy, trace edema, no contractures Neuro: CN II-XI grossly intact, no focal neuro deficits Psych: Alert, oriented, appropriate affect - Labs CBC & Chem 7: 07/23/20 03:54 07/23/20 03:54 Labs: Abnormal Lab Results - Last 24 Hours (Table) 07/22/20 07/22/20 07/23/20 Range/Units 16:54 20:40 03:54 WBC 15.2 H (3.8-10.6) k/uL RBC 2.41 L (4.30-5.90) m/uL Hgb 8.1 L (13.0-17.5) gm/dL Hct 23.9 L (39.0-53.0) % RDW 15.8 H (11.5-15.5) % Neutrophils # 13.5 H (1.3-7.7) k/uL Lymphocytes # 0.4 L (1.0-4.8) k/uL Sodium (137-145) mmol/L Potassium (3.5-5.1) mmol/L Chloride (98-107) mmol/L Carbon Dioxide (22-30) mmol/L BUN (9-20) mg/dL Creatinine (0.66-1.25) mg/dL Glucose (74-99) mg/dL POC Glucose (mg/dL) 176 H 111 H (75-99) mg/dL Calcium (8.4-10.2) mg/dL Total Bilirubin (0.2-1.3) mg/dL AST (17-59) U/L ALT (4-49) U/L Alkaline Phosphatase (38-126) U/L Total Protein (6.3-8.2) g/dL Albumin (3.5-5.0) g/dL 07/23/20 07/23/20 07/23/20 Range/Units 03:54 06:40 12:16 WBC (3.8-10.6) k/uL RBC (4.30-5.90) m/uL Hgb (13.0-17.5) gm/dL Hct (39.0-53.0) % RDW (11.5-15.5) % Neutrophils # (1.3-7.7) k/uL Lymphocytes # (1.0-4.8) k/uL Sodium 124 L (137-145) mmol/L Potassium 5.3 H (3.5-5.1) mmol/L Chloride 94 L (98-107) mmol/L Carbon Dioxide 21 L (22-30) mmol/L BUN 57 H (9-20) mg/dL Creatinine 1.84 H (0.66-1.25) mg/dL Glucose 164 H (74-99) mg/dL POC Glucose (mg/dL) 210 H 169 H (75-99) mg/dL Calcium 8.3 L (8.4-10.2) mg/dL Total Bilirubin 2.1 H (0.2-1.3) mg/dL AST 136 H (17-59) U/L ALT 193 H (4-49) U/L Alkaline Phosphatase 36 L (38-126) U/L Total Protein 5.6 L (6.3-8.2) g/dL Albumin 3.4 L (3.5-5.0) g/dL Assessment and Plan Plan: DM 2 - hold metformin - Inulin subcutaneous with sliding scale insulin coverage, check blood sugars every before meals and at bedtime, Levemir added on 07/21. - Blood sugars currently controlled, follow blood sugars closely - A1C from 06/21/2020 5.2, anticipate discharge home back on metformin which may be able to come off in the near future in the outpatient setting. A-fib with RVR On amio and eliquis Off cardizem gtt CONNOR on CKD stage III Baseline cr 1.4-1.5 Likely cardiorenal syndrome, patient received contrast earlier in the admission. Try to avoid IV fluids Recheck in am Avoid nephrotoxic meds Nephrology is following Acute hyponatremia Likely sec to renal failure Monitor Nephrology consulted, checking urine and plasma osmolalities as well as urine sodium. Hyperkalemia Kayexalate 15 g, follow K in a.m. Pneumoperitoneum suspect secondary to mediastinal chest tubes -Tube d/melody -Resolved. Constipation On Senokot, MiraLAX Had a bowel movement today Acute blood loss anemia and thrombocytopenia, anticipated outcome of surgery - follow CBC - transfuse as indicated COPD with acute exacerbation - On steroids, we'll wean down today from 60 to 40 mg every 6 hours. - DuoNebs - on spiriva and advair at home Coronary artery disease -Status post coronary artery bypass grafting -Cardiothoracic and cardiology following HTN - meds per CT surgery - follow BP Hypothyroidism status post partial thyroidectomy - synthroid Morbid obesity with BMI 30.5 -Outpatient structured weight loss Chronic: ADDY Jacobs's Thank you for allowing us to participate in the care of this pleasant patient. Do not hesitate to contact us with questions. Someone can be reached from the [facility] hospitalist group all hours of the day at [phone] or via [employer].
[2020-07-23] MEDS ORDERED: FUROSEMIDE 10 MG/ML 4 ML VIAL IV STA (15:41)
[2020-07-23 18:01] LABS: Glucose,Whole Blood 206 mg/dL (75-99)
[2020-07-23 19:21] LABS: Appearance,Urine Clear (Clear); Bilirubin,Urine Negative (Negative); Blood,Urine Large (Negative); Color,Urine Light Yellow; Glucose,Urine (UA) Negative (Negative); Ketones,Urine Negative (Negative); Leukocyte Esterase,Urine Negative (Negative); Mucus,Urine Rare /hpf; Nitrite,Urine Negative (Negative); PH, Urine 5.5 (5.0-8.0); Protein,Urine Negative (Negative); RBC,Urine 144 /hpf (0-5); Urobilinogen,Urine <2.0 mg/dL (<2.0); WBC,Urine 2 /hpf (0-5)
[2020-07-23 20:24] LABS: Glucose,Whole Blood 274 mg/dL (75-99)
[2020-07-23] MEDS: methylPREDNISolone SOD SUCCI 40 MG/ML 1 ML VIAL IV SCH (20:33)
[2020-07-23] MEDS: INSULIN DETEMIR (LEVEMIR) 100 UNIT/ML SYR SQ SCH (20:33)
[2020-07-23] MEDS: SENNOSIDES-DOCUSATE SODIUM 1 EACH TAB PO SCH (20:34)
[2020-07-23 23:14] LABS: Glucose,Whole Blood 213 mg/dL (75-99)
[2020-07-24 00:52] LABS: Glucose,Whole Blood 150 mg/dL (75-99)
[2020-07-24] MEDS: INSULIN ASPART (NovoLOG) 100 UNIT/ML VIAL SQ SCH ×7 (00:55→20:30)
[2020-07-24] MEDS: methylPREDNISolone SOD SUCCI 40 MG/ML 1 ML VIAL IV SCH ×2 (00:56→05:24)
[2020-07-24 04:23] LABS: Basophils % (A) 0 %; Eosinophils % (A) 0 %; HCT 24.3 % (39.0-53.0); HGB 8.3 gm/dL (13.0-17.5); Lymphocytes # (A) 0.4 k/uL (1.0-4.8); Lymphocytes % (A) 3 %; MCH 33.5 pg (25.0-35.0); MCHC 34.2 g/dL (31.0-37.0); MCV 97.9 fL (80.0-100.0); Macrocytosis Slight; Mean Platelet Volume 7.4; Monocytes # (A) 0.9 k/uL (0-1.0); Monocytes % (A) 7 %; Neutrophils # (A) 11.2 k/uL (1.3-7.7); Platelet Count 190 k/uL (150-450); Poikilocytosis Slight; RBC 2.48 m/uL (4.30-5.90); RDW 15.8 % (11.5-15.5)
[2020-07-24 04:42] LABS: Albumin 3.4 g/dL (3.5-5.0); Calcium 8.2 mg/dL (8.4-10.2); Magnesium 2.7 mg/dL (1.6-2.3); Potassium 4.9 mmol/L (3.5-5.1); Total Bilirubin 1.9 mg/dL (0.2-1.3); Total Protein 5.6 g/dL (6.3-8.2)
[2020-07-24 05:19] LABS: Glucose,Whole Blood 159 mg/dL (75-99)
[2020-07-24] MEDS: METOPROLOL TARTRATE 25 MG TAB PO SCH (05:24)
[2020-07-24] MEDS: LEVOTHYROXINE 50 MCG TAB PO SCH (05:24)
[2020-07-24] MEDS: PANTOPRAZOLE 40 MG TABLET PO SCH (05:24)
[2020-07-24 06:17] LABS: Band Neutrophils % 3 %; Lymphocytes # (M) 0.38 k/uL (1.0-4.8); Metamyelocytes # (M) 0.13 k/uL (0); Metamyelocytes % 1 %; Monocytes # (M) 1.02 k/uL (0-1.0); Neutrophils % (M) 85 %; Nucleated Red Blood Cells 1 /100 WBC (0-0); Total Cells Counted 100
[2020-07-24 06:18] LABS: WBC 12.7 k/uL (3.8-10.6)
--- NOTE | 2020-07-24 06:51 | XR ---
EXAMINATION TYPE: XR chest 1V portable DATE OF EXAM: 07/24/2020 CLINICAL HISTORY: Difficulty breathing progress study. Post open cardiac surgery. TECHNIQUE: Single AP portable upright view of the chest is obtained. COMPARISON: Chest x-ray from one day earlier and older studies. FINDINGS: Post-CABG changes with mediastinal clips and sternal wires is redemonstrated. No pneumotho rax noted. Persistent small right pleural effusion and tiny left pleural effusion with bibasilar acut e atelectasis and/or infiltrate. Stable mild cardiomegaly with atherosclerotic and ectatic aorta. Oss eous structures are intact. IMPRESSION: Mild cardiomegaly with small to tiny right greater than left pleural effusions and bibasi lar acute atelectasis and/or infiltrate are all redemonstrated. No significant change from most recen t x-ray.
--- NOTE | 2020-07-24 07:02 | P.PN ---
Subjective Progress Note Date: 07/24/20 80-year-old male patient postoperative bypass surgery. Postop day number #6. The patient underwent carotid bypass surgery. The patient remains extubated on 3 L of oxygen by nasal cannula. Chest x-ray shows small right-sided pleural effusion. The patient is awake and alert. The patient is using incentive spirometer. The patient is able to sit up on a chair. He is feeling better on a daily basis. The patient is of coronary artery disease and previous stenting of her back in 2002. Patient has hyperlipidemia and hypothyroidism patient has undergone a partial thyroidectomy he had the patient is an ex-smoker. Mother with COPD with an FEV1 of 56% predicted with some bullous changes. The patient has diabetes mellitus type 2 with a preop hemoglobin A1c of 5.2. The patient is, stage III. The postoperative course was complicated by in acute blood loss anemia which is expected outcome of surgery and the patient also developed atrial fibrillation and other expected outcome of surgery. There was also some limited pneumomediastinum secondary to mediastinal tubes. The patient's currently is in normal sinus rhythm. He is using incentive spirometer.he is pulling approximately 500 on the incentive spirometer. No appreciated bronchospasm wheezing on today's evaluation. Chest x-ray shows small bilateral pleural effusion slightly worse on the right. The patient has no chest tubes at this point in time. He remains nature fibrillation with controlled rate. Objective - Vital Signs Vital signs: Vital Signs Temp 98.9 F 07/24/20 00:00 Pulse 93 07/24/20 06:00 Resp 28 H 07/24/20 06:00 BP 122/75 07/24/20 06:00 Pulse Ox 98 07/24/20 05:00 Intake & Output 07/23/20 07/23/20 07/24/20 06:59 18:59 06:59 Intake Total 800 600 540 Output Total 1460 1525 1600 Balance -660 -925 -0400 Weight 102.9 kg 98 kg Intake: Oral 800 600 540 Output: Urine 1460 1525 1600 Other: Voiding Method Indwelling Catheter Indwelling Catheter Urinal # Voids 0 0 ABP, PAP, CO, CI - Last Documented Arterial Blood Pressure 125/61 Pulmonary Artery Pressure 33/14 Cardiac Output 6.7 Cardiac Index 3.1 - Exam GENERAL EXAM: Alert, very pleasant, 79-year-old male patient, on 3 L of oxygen, sitting up in the recliner, in the ICU, fairly comfortable in no apparent distress. HEAD: Normocephalic/atraumatic. EYES: Normal reaction of pupils, equal size. Conjunctiva pink, sclera white. NOSE: Clear with pink turbinates. THROAT: No erythema or exudates. NECK: No masses, no JVD, no thyroid enlargement, no adenopathy. CHEST: No chest wall deformity. Symmetrical expansion. Midsternal incision is clean dry and intact LUNGS: Equal air entry with scattered crackles in the bases. CVS: Regular rate and rhythm, normal S1 and S2, no gallops, no murmurs, no rubs ABDOMEN: Slightly distended, nontender. No hepatosplenomegaly, hypoactive bowel sounds, no guarding or rigidity.the patient has some mild abdominal distention. There is also some tympany with diminished bowel sounds. EXTREMITIES: No clubbing, no edema, no cyanosis, 2+ pulses and upper and lower extremities. MUSCULOSKELETAL: Muscle strength and tone normal. SPINE: No scoliosis or deformity SKIN: No rashes CENTRAL NERVOUS SYSTEM: No focal deficits, tone is normal in all 4 extremities. PSYCHIATRIC: Alert and oriented -3. Appropriate affect. Intact judgment and insight. - Labs CBC & Chem 7: 07/24/20 04:07 07/24/20 04:07 Labs: Abnormal Lab Results - Last 24 Hours (Table) 07/23/20 07/23/20 07/23/20 Range/Units 12:16 17:10 17:59 WBC (3.8-10.6) k/uL RBC (4.30-5.90) m/uL Hgb (13.0-17.5) gm/dL Hct (39.0-53.0) % RDW (11.5-15.5) % Neutrophils # (1.3-7.7) k/uL Neutrophils # (Manual) (1.3-7.7) k/uL Lymphocytes # (1.0-4.8) k/uL Lymphocytes # (Manual) (1.0-4.8) k/uL Monocytes # (Manual) (0-1.0) k/uL Metamyelocytes # (Man) (0) k/uL Nucleated RBCs (0-0) /100 WBC Sodium (137-145) mmol/L Chloride (98-107) mmol/L BUN (9-20) mg/dL Creatinine (0.66-1.25) mg/dL Glucose (74-99) mg/dL POC Glucose (mg/dL) 169 H 206 H (75-99) mg/dL Calcium (8.4-10.2) mg/dL Magnesium (1.6-2.3) mg/dL Total Bilirubin (0.2-1.3) mg/dL AST (17-59) U/L ALT (4-49) U/L Total Protein (6.3-8.2) g/dL Albumin (3.5-5.0) g/dL Urine Blood Large H (Negative) Urine RBC 144 H (0-5) /hpf Urine Mucus Rare H (None) /hpf 07/23/20 07/23/20 07/24/20 Range/Units 20:22 23:13 00:51 WBC (3.8-10.6) k/uL RBC (4.30-5.90) m/uL Hgb (13.0-17.5) gm/dL Hct (39.0-53.0) % RDW (11.5-15.5) % Neutrophils # (1.3-7.7) k/uL Neutrophils # (Manual) (1.3-7.7) k/uL Lymphocytes # (1.0-4.8) k/uL Lymphocytes # (Manual) (1.0-4.8) k/uL Monocytes # (Manual) (0-1.0) k/uL Metamyelocytes # (Man) (0) k/uL Nucleated RBCs (0-0) /100 WBC Sodium (137-145) mmol/L Chloride (98-107) mmol/L BUN (9-20) mg/dL Creatinine (0.66-1.25) mg/dL Glucose (74-99) mg/dL POC Glucose (mg/dL) 274 H 213 H 150 H (75-99) mg/dL Calcium (8.4-10.2) mg/dL Magnesium (1.6-2.3) mg/dL Total Bilirubin (0.2-1.3) mg/dL AST (17-59) U/L ALT (4-49) U/L Total Protein (6.3-8.2) g/dL Albumin (3.5-5.0) g/dL Urine Blood (Negative) Urine RBC (0-5) /hpf Urine Mucus (None) /hpf 07/24/20 07/24/20 07/24/20 Range/Units 04:07 04:07 05:18 WBC 12.7 H (3.8-10.6) k/uL RBC 2.48 L (4.30-5.90) m/uL Hgb 8.3 L (13.0-17.5) gm/dL Hct 24.3 L (39.0-53.0) % RDW 15.8 H (11.5-15.5) % Neutrophils # 11.2 H (1.3-7.7) k/uL Neutrophils # (Manual) 11.10 H (1.3-7.7) k/uL Lymphocytes # 0.4 L (1.0-4.8) k/uL Lymphocytes # (Manual) 0.38 L (1.0-4.8) k/uL Monocytes # (Manual) 1.02 H (0-1.0) k/uL Metamyelocytes # (Man) 0.13 H (0) k/uL Nucleated RBCs 1 H (0-0) /100 WBC Sodium 126 L (137-145) mmol/L Chloride 92 L (98-107) mmol/L BUN 65 H (9-20) mg/dL Creatinine 1.99 H (0.66-1.25) mg/dL Glucose 163 H (74-99) mg/dL POC Glucose (mg/dL) 159 H (75-99) mg/dL Calcium 8.2 L (8.4-10.2) mg/dL Magnesium 2.7 H (1.6-2.3) mg/dL Total Bilirubin 1.9 H (0.2-1.3) mg/dL AST 82 H (17-59) U/L ALT 150 H (4-49) U/L Total Protein 5.6 L (6.3-8.2) g/dL Albumin 3.4 L (3.5-5.0) g/dL Urine Blood (Negative) Urine RBC (0-5) /hpf Urine Mucus (None) /hpf Assessment and Plan Plan: 1 Symptomatic coronary artery disease, status post two-vessel coronary artery bypass grafting with PABLO to the LAD, SVG to the PDA, postoperative day #6 2 Postoperative atrial fibrillation with rapid ventricular response requiring amiodarone and Metoprolol and anticoagulation with Eliquis, and the patient continues to be in atrial fibrillation with a controlled rate 3 History of coronary artery disease with previous stent placement 4 Routine postoperative ventilator management, and patient was successfully extubated on postoperative day 0 , within 6 hours of OR exit 5 small atelectatic changes in the right lung base, post op in nature 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 15 Constipation Plan: Chest x-ray and labs reviewed Increase his activity as tolerated Titrate down the FiO2 as tolerated Continue bronchodilators IS, and taper IV Solu-Medroland this continued IV Solu Medrol start the patient on prednisone burst taper starting with 30 mg obtain a flat abdominal film Receiving stool softeners and laxatives for constipation encourage use of incentive spirometer Rate control with metoprolol and the patient is also on Eliquis We will continue to follow and make further recommendations based on his clinical status
[2020-07-24 08:03] LABS: Glucose,Whole Blood 265 mg/dL (75-99)
[2020-07-24] MEDS: MAGNESIUM HYDROXIDE 2,400 MG/10 ML CUP PO PRN (08:09)
[2020-07-24] MEDS: polyethylene glycoL 3350 17 GM POWD.PACK PO SCH (08:10)
[2020-07-24] MEDS: ASPIRIN 81 MG PO SCH (08:11)
[2020-07-24] MEDS: ATORVASTATIN 40 MG TAB PO SCH (08:12)
[2020-07-24] MEDS: APIXABAN 5 MG TAB PO SCH (08:12)
[2020-07-24] MEDS: AMIODARONE 200 MG TAB PO SCH (08:12)
--- NOTE | 2020-07-24 08:25 | P.PN ---
<Bertha Marin - Last Filed: 07/24/20 09:14> Subjective Progress Note Date: 07/24/20 Principal diagnosis: Symptomatic triple-vessel coronary artery disease, mild left ventricular dysfunction. Previuos medical history of stenting to his right coronary artery in 2002, hypertension, hyperlipidemia, hypothyroid status post partial thyroidectomy, previous tobacco dependence quit smoking 20 years ago, moderate chronic obstructive pulmonary disease with preoperative FEV1 of 56% of predicted value, bullous emphysema, remote history of pneumonia, type 2 diabetes mellitus with a preoperative hemoglobin A1c of 5.2%, chronic kidney disease stage III with a baseline creatinine of 1.4-1.5, family history of premature coronary artery disease with brother having had CABG at less than 50 years old. POD #5 double coronary artery bypass grafting using the left internal mammary artery to left anterior descending coronary artery, reverse greater saphenous vein graft from the aorta to the posterior descending coronary artery. Exclusion of the left atrial appendage using a 35 mm Atriclip, endoscopic harvesting of the right greater saphenous vein from the groin to above the ankle level, graft flow measurement using the [employer] system, intraoperative transesophageal echocardiogram and epi-aortic scanning. Postoperative acute blood loss anemia, expected outcome from hemodilution and cardiopulmonary bypass. Postoperative paroxysmal atrial fibrillation, unexpected but common outcome after open heart surgery. Pneumoperitoneum, unexpected, likely secondary to mediastinal chest tubes Acute on chronic kidney disease secondary to ATN The patient is currently sitting up in a recliner in no acute distress. Complains of mild incisional type chest pain controlled on current medication regimen, complains of continued shortness of breath especially with activity. Went back into AF last night. Continues on amiodarone oral, lopressor increased today, continues on anticoagulation. Needs much encouragement to use incentive spirometry and ambulate. Did have small bowel movement yesterday. Patient admits to not eating much. Objective - Vital Signs Vital signs: Vital Signs Temp 98.9 F 07/24/20 00:00 Pulse 95 07/24/20 07:00 Resp 30 H 07/24/20 07:00 BP 117/69 07/24/20 07:00 Pulse Ox 94 L 07/24/20 07:00 Intake & Output 07/23/20 07/24/20 07/24/20 18:59 06:59 18:59 Intake Total 600 540 Output Total 1525 1600 0 Balance -925 -1060 0 Weight 98 kg Intake: Oral 600 540 Output: Urine 1525 1600 0 Other: Voiding Method Indwelling Catheter Urinal # Voids 0 0 0 ABP, PAP, CO, CI - Last Documented Arterial Blood Pressure 125/61 Pulmonary Artery Pressure 33/14 Cardiac Output 6.7 Cardiac Index 3.1 - Constitutional General appearance: Present: cooperative, no acute distress, obese - Respiratory Details: Lungs sounds diminished bilaterally in the bases. Respirations even, slightly labored. Currently on 3 L nasal cannula with oxygen saturation 94%. Only able to achieve 500 mL on his incentive spirometry today. Strong productive cough. - Cardiovascular Details: S1, S2 present. Irregular rate and rhythm, atrial fibrillation on telemetry. Sternum stable. Palpable peripheral pulses bilaterally. Upper extremity trace generalized edema present. Heart hugger in place with patient demonstrating appropriate use. Antiembolism stockings, SCDs present. - Gastrointestinal Gastrointestinal Comment(s): Abdomen soft, nontender, slightly distended. Active bowel sounds present. Tolerating minimal diet. Positive small bowel movement yesterday - Genitourinary Genitourinary Comment(s): Villafana discontinued yesterday, patient voiding clear yellow urine, output 1140 mL in the last 24 hours - Integumentary Integumentary Comment(s): Skin is warm and dry with evidence of good perfusion. Anterior chest incision well approximated and covered with dry intact dressing. Right lower extremity EVH site well approximated - Neurologic Neurologic: Present: CNII-XII intact - Musculoskeletal Musculoskeletal: Present: gait normal, strength equal bilaterally - Psychiatric Psychiatric: Present: A&O x's 3, appropriate affect - Allied health notes Allied health notes reviewed: nursing - Labs CBC & Chem 7: 07/24/20 04:07 07/24/20 04:07 Labs: Abnormal Lab Results - Last 24 Hours (Table) 07/23/20 07/23/20 07/23/20 Range/Units 12:16 17:10 17:59 WBC (3.8-10.6) k/uL RBC (4.30-5.90) m/uL Hgb (13.0-17.5) gm/dL Hct (39.0-53.0) % RDW (11.5-15.5) % Neutrophils # (1.3-7.7) k/uL Neutrophils # (Manual) (1.3-7.7) k/uL Lymphocytes # (1.0-4.8) k/uL Lymphocytes # (Manual) (1.0-4.8) k/uL Monocytes # (Manual) (0-1.0) k/uL Metamyelocytes # (Man) (0) k/uL Nucleated RBCs (0-0) /100 WBC Sodium (137-145) mmol/L Chloride (98-107) mmol/L BUN (9-20) mg/dL Creatinine (0.66-1.25) mg/dL Glucose (74-99) mg/dL POC Glucose (mg/dL) 169 H 206 H (75-99) mg/dL Calcium (8.4-10.2) mg/dL Magnesium (1.6-2.3) mg/dL Total Bilirubin (0.2-1.3) mg/dL AST (17-59) U/L ALT (4-49) U/L Total Protein (6.3-8.2) g/dL Albumin (3.5-5.0) g/dL Urine Blood Large H (Negative) Urine RBC 144 H (0-5) /hpf Urine Mucus Rare H (None) /hpf 07/23/20 07/23/20 07/24/20 Range/Units 20:22 23:13 00:51 WBC (3.8-10.6) k/uL RBC (4.30-5.90) m/uL Hgb (13.0-17.5) gm/dL Hct (39.0-53.0) % RDW (11.5-15.5) % Neutrophils # (1.3-7.7) k/uL Neutrophils # (Manual) (1.3-7.7) k/uL Lymphocytes # (1.0-4.8) k/uL Lymphocytes # (Manual) (1.0-4.8) k/uL Monocytes # (Manual) (0-1.0) k/uL Metamyelocytes # (Man) (0) k/uL Nucleated RBCs (0-0) /100 WBC Sodium (137-145) mmol/L Chloride (98-107) mmol/L BUN (9-20) mg/dL Creatinine (0.66-1.25) mg/dL Glucose (74-99) mg/dL POC Glucose (mg/dL) 274 H 213 H 150 H (75-99) mg/dL Calcium (8.4-10.2) mg/dL Magnesium (1.6-2.3) mg/dL Total Bilirubin (0.2-1.3) mg/dL AST (17-59) U/L ALT (4-49) U/L Total Protein (6.3-8.2) g/dL Albumin (3.5-5.0) g/dL Urine Blood (Negative) Urine RBC (0-5) /hpf Urine Mucus (None) /hpf 07/24/20 07/24/20 07/24/20 Range/Units 04:07 04:07 05:18 WBC 12.7 H (3.8-10.6) k/uL RBC 2.48 L (4.30-5.90) m/uL Hgb 8.3 L (13.0-17.5) gm/dL Hct 24.3 L (39.0-53.0) % RDW 15.8 H (11.5-15.5) % Neutrophils # 11.2 H (1.3-7.7) k/uL Neutrophils # (Manual) 11.10 H (1.3-7.7) k/uL Lymphocytes # 0.4 L (1.0-4.8) k/uL Lymphocytes # (Manual) 0.38 L (1.0-4.8) k/uL Monocytes # (Manual) 1.02 H (0-1.0) k/uL Metamyelocytes # (Man) 0.13 H (0) k/uL Nucleated RBCs 1 H (0-0) /100 WBC Sodium 126 L (137-145) mmol/L Chloride 92 L (98-107) mmol/L BUN 65 H (9-20) mg/dL Creatinine 1.99 H (0.66-1.25) mg/dL Glucose 163 H (74-99) mg/dL POC Glucose (mg/dL) 159 H (75-99) mg/dL Calcium 8.2 L (8.4-10.2) mg/dL Magnesium 2.7 H (1.6-2.3) mg/dL Total Bilirubin 1.9 H (0.2-1.3) mg/dL AST 82 H (17-59) U/L ALT 150 H (4-49) U/L Total Protein 5.6 L (6.3-8.2) g/dL Albumin 3.4 L (3.5-5.0) g/dL Urine Blood (Negative) Urine RBC (0-5) /hpf Urine Mucus (None) /hpf 07/24/20 Range/Units 08:01 WBC (3.8-10.6) k/uL RBC (4.30-5.90) m/uL Hgb (13.0-17.5) gm/dL Hct (39.0-53.0) % RDW (11.5-15.5) % Neutrophils # (1.3-7.7) k/uL Neutrophils # (Manual) (1.3-7.7) k/uL Lymphocytes # (1.0-4.8) k/uL Lymphocytes # (Manual) (1.0-4.8) k/uL Monocytes # (Manual) (0-1.0) k/uL Metamyelocytes # (Man) (0) k/uL Nucleated RBCs (0-0) /100 WBC Sodium (137-145) mmol/L Chloride (98-107) mmol/L BUN (9-20) mg/dL Creatinine (0.66-1.25) mg/dL Glucose (74-99) mg/dL POC Glucose (mg/dL) 265 H (75-99) mg/dL Calcium (8.4-10.2) mg/dL Magnesium (1.6-2.3) mg/dL Total Bilirubin (0.2-1.3) mg/dL AST (17-59) U/L ALT (4-49) U/L Total Protein (6.3-8.2) g/dL Albumin (3.5-5.0) g/dL Urine Blood (Negative) Urine RBC (0-5) /hpf Urine Mucus (None) /hpf - Imaging and Cardiology Chest x-ray: report reviewed, image reviewed Assessment and Plan Assessment: 1. Symptomatic triple-vessel coronary artery disease, status post 2 vessel CABG 2. Mild left ventricular dysfunction 3. Previuos history of stenting to his right coronary artery in 2002 4. Hypertension 5. Hyperlipidemia 6. Hypothyroid status post partial thyroidectomy 7. Previous tobacco dependence with bullous emphysema 8. Moderate chronic obstructive pulmonary disease with preoperative FEV1 of 56% of predicted value 9. Remote history of pneumonia 10. Type 2 diabetes mellitus with a preoperative hemoglobin A1c of 5.2% 11. Chronic kidney disease stage III with a baseline creatinine of 1.4-1.5 12. Family history of premature coronary artery disease with brother having had CABG at less than 50 years old 13. Postoperative acute blood loss anemia, expected outcome 14. Postoperative paroxysmal atrial fibrillation, unexpected, status post exclusion of the left atrial appendage 15. Pneumoperitoneum, unexpected 16. Acute on chronic kidney disease with hyponatremia, hyperkalemia Plan: 1. Continue low dose aspirin, statin, and beta apolinar. Lopressor increased to 100 mg BID today 2. Continue amiodarone for afib prophylaxis. Continue Eliquis for anticoagulation 3. Wean oxygen as tolerated. Encourage incentive spirometry use 10 times every hour while awake. Bronchodilators, steroids per pulmonology management. 4. Increase activity, ambulate minimum 4x daily, out of bed for all meals. PT/OT/cardiac rehab consulted. 5. Will monitor daily labs and chest x-rays. Electrolyte replacement per protocol. 6. GI/DVT prophylaxis. 7. Pain control with current medication regimen. 8. Insulin management per Dr. Polk 9. Dulcolax suppository daily, continue stool softners, miralax, will give MOM/prune juice today 10. Nephrology consulted, appreciate recommendations. Avoid nephrotoxic agents 11. Strict accurate intake and output, daily weight with stand upscale, not bed scale 12. More recommendations to follow based on patient's clinical course. Time with Patient: Greater than 30 <Estee Cantor - Last Filed: 07/24/20 17:13> Objective - Vital Signs Vital signs: Vital Signs Temp 96.7 F L 07/24/20 09:00 Pulse 101 H 07/24/20 15:00 Resp 35 H 07/24/20 15:00 BP 115/90 07/24/20 15:00 Pulse Ox 97 07/24/20 15:21 Intake & Output 07/23/20 07/24/20 07/24/20 18:59 06:59 18:59 Intake Total 600 540 240 Output Total 1525 1600 2168 Balance -497 -2160 -8524 Weight 98 kg Intake: Oral 600 540 240 Output: Gastric Drainage 250 Urine 1525 1600 1000 Straight 1000 Post Void Residual 918 Other: Voiding Method Indwelling Catheter Urinal Toilet Urinal # Voids 0 0 0 ABP, PAP, CO, CI - Last Documented Arterial Blood Pressure 125/61 Pulmonary Artery Pressure 33/14 Cardiac Output 6.7 Cardiac Index 3.1 - Labs CBC & Chem 7: 07/24/20 04:07 07/24/20 04:07 Labs: Abnormal Lab Results - Last 24 Hours (Table) 07/23/20 07/23/20 07/23/20 Range/Units 17:10 17:59 20:22 WBC (3.8-10.6) k/uL RBC (4.30-5.90) m/uL Hgb (13.0-17.5) gm/dL Hct (39.0-53.0) % RDW (11.5-15.5) % Neutrophils # (1.3-7.7) k/uL Neutrophils # (Manual) (1.3-7.7) k/uL Lymphocytes # (1.0-4.8) k/uL Lymphocytes # (Manual) (1.0-4.8) k/uL Monocytes # (Manual) (0-1.0) k/uL Metamyelocytes # (Man) (0) k/uL Nucleated RBCs (0-0) /100 WBC Sodium (137-145) mmol/L Chloride (98-107) mmol/L BUN (9-20) mg/dL Creatinine (0.66-1.25) mg/dL Glucose (74-99) mg/dL POC Glucose (mg/dL) 206 H 274 H (75-99) mg/dL Calcium (8.4-10.2) mg/dL Magnesium (1.6-2.3) mg/dL Total Bilirubin (0.2-1.3) mg/dL AST (17-59) U/L ALT (4-49) U/L Total Protein (6.3-8.2) g/dL Albumin (3.5-5.0) g/dL TSH (0.465-4.680) mIU/L Urine Blood Large H (Negative) Urine RBC 144 H (0-5) /hpf Urine Mucus Rare H (None) /hpf 07/23/20 07/24/20 07/24/20 Range/Units 23:13 00:51 04:07 WBC 12.7 H (3.8-10.6) k/uL RBC 2.48 L (4.30-5.90) m/uL Hgb 8.3 L (13.0-17.5) gm/dL Hct 24.3 L (39.0-53.0) % RDW 15.8 H (11.5-15.5) % Neutrophils # 11.2 H (1.3-7.7) k/uL Neutrophils # (Manual) 11.10 H (1.3-7.7) k/uL Lymphocytes # 0.4 L (1.0-4.8) k/uL Lymphocytes # (Manual) 0.38 L (1.0-4.8) k/uL Monocytes # (Manual) 1.02 H (0-1.0) k/uL Metamyelocytes # (Man) 0.13 H (0) k/uL Nucleated RBCs 1 H (0-0) /100 WBC Sodium (137-145) mmol/L Chloride (98-107) mmol/L BUN (9-20) mg/dL Creatinine (0.66-1.25) mg/dL Glucose (74-99) mg/dL POC Glucose (mg/dL) 213 H 150 H (75-99) mg/dL Calcium (8.4-10.2) mg/dL Magnesium (1.6-2.3) mg/dL Total Bilirubin (0.2-1.3) mg/dL AST (17-59) U/L ALT (4-49) U/L Total Protein (6.3-8.2) g/dL Albumin (3.5-5.0) g/dL TSH (0.465-4.680) mIU/L Urine Blood (Negative) Urine RBC (0-5) /hpf Urine Mucus (None) /hpf 07/24/20 07/24/20 07/24/20 Range/Units 04:07 04:07 05:18 WBC (3.8-10.6) k/uL RBC (4.30-5.90) m/uL Hgb (13.0-17.5) gm/dL Hct (39.0-53.0) % RDW (11.5-15.5) % Neutrophils # (1.3-7.7) k/uL Neutrophils # (Manual) (1.3-7.7) k/uL Lymphocytes # (1.0-4.8) k/uL Lymphocytes # (Manual) (1.0-4.8) k/uL Monocytes # (Manual) (0-1.0) k/uL Metamyelocytes # (Man) (0) k/uL Nucleated RBCs (0-0) /100 WBC Sodium 126 L (137-145) mmol/L Chloride 92 L (98-107) mmol/L BUN 65 H (9-20) mg/dL Creatinine 1.99 H (0.66-1.25) mg/dL Glucose 163 H (74-99) mg/dL POC Glucose (mg/dL) 159 H (75-99) mg/dL Calcium 8.2 L (8.4-10.2) mg/dL Magnesium 2.7 H (1.6-2.3) mg/dL Total Bilirubin 1.9 H (0.2-1.3) mg/dL AST 82 H (17-59) U/L ALT 150 H (4-49) U/L Total Protein 5.6 L (6.3-8.2) g/dL Albumin 3.4 L (3.5-5.0) g/dL TSH 0.310 L (0.465-4.680) mIU/L Urine Blood (Negative) Urine RBC (0-5) /hpf Urine Mucus (None) /hpf 07/24/20 07/24/20 07/24/20 Range/Units 08:01 11:28 16:06 WBC (3.8-10.6) k/uL RBC (4.30-5.90) m/uL Hgb (13.0-17.5) gm/dL Hct (39.0-53.0) % RDW (11.5-15.5) % Neutrophils # (1.3-7.7) k/uL Neutrophils # (Manual) (1.3-7.7) k/uL Lymphocytes # (1.0-4.8) k/uL Lymphocytes # (Manual) (1.0-4.8) k/uL Monocytes # (Manual) (0-1.0) k/uL Metamyelocytes # (Man) (0) k/uL Nucleated RBCs (0-0) /100 WBC Sodium (137-145) mmol/L Chloride (98-107) mmol/L BUN (9-20) mg/dL Creatinine (0.66-1.25) mg/dL Glucose (74-99) mg/dL POC Glucose (mg/dL) 265 H 176 H 132 H (75-99) mg/dL Calcium (8.4-10.2) mg/dL Magnesium (1.6-2.3) mg/dL Total Bilirubin (0.2-1.3) mg/dL AST (17-59) U/L ALT (4-49) U/L Total Protein (6.3-8.2) g/dL Albumin (3.5-5.0) g/dL TSH (0.465-4.680) mIU/L Urine Blood (Negative) Urine RBC (0-5) /hpf Urine Mucus (None) /hpf Assessment and Plan Plan: Patient with progressive abdominal distension and pain. Questionable peritoneal sign,. General surgery notified. KUB raises questionable free air. Stat ABX given and immediate CT Scan reveals small bowel pneumatosis and air in portal system. Patient needs immediate exploratory laparotomy. Critical condition. not answering phone call. ESTEE CANTOR MD
[2020-07-24] MEDS ORDERED: MAGNESIUM SULFATE-D5W PMX 1 GM in DEXTROSE/WATER 1 100ML.BAG IVPB SCH (08:45)
[2020-07-24] MEDS ORDERED: VERAPAMIL 40 MG TAB PO SCH (09:00)
[2020-07-24] MEDS ORDERED: METOPROLOL TARTRATE 50 MG TAB PO SCH (09:00)
[2020-07-24] MEDS ORDERED: predniSONE 10 MG TAB PO SCH (09:00)
[2020-07-24] MEDS: FORMOTEROL FUMARATE 20 MCG/2 ML NEBU INHALATION SCH ×2 (09:33→19:22)
[2020-07-24] MEDS: IPRATROPIUM-ALBUTEROL 3 ML NEB INHALATION SCH ×4 (09:33→19:22)
[2020-07-24] MEDS: BUDESONIDE 1 MG/2 ML NEBU INHALATION SCH ×2 (09:33→19:22)
[2020-07-24] MEDS ORDERED: METOPROLOL SUCCINATE (ER) 25 MG TAB.ER.24H PO STA (10:11)
--- NOTE | 2020-07-24 10:57 | P.PN ---
Subjective Progress Note Date: 07/24/20 No new complaints today. Pt continues to report LINDA and weakness and dyspnea. Objective - Vital Signs Vital signs: Vital Signs Temp 98.9 F 07/24/20 00:00 Pulse 90 07/24/20 09:34 Resp 30 H 07/24/20 07:00 BP 117/69 07/24/20 07:00 Pulse Ox 94 L 07/24/20 07:00 Intake & Output 07/23/20 07/24/20 07/24/20 18:59 06:59 18:59 Intake Total 600 540 240 Output Total 1525 1600 0 Balance -925 -1060 240 Weight 98 kg Intake: Oral 600 540 240 Output: Urine 1525 1600 0 Other: Voiding Method Indwelling Catheter Urinal # Voids 0 0 0 ABP, PAP, CO, CI - Last Documented Arterial Blood Pressure 125/61 Pulmonary Artery Pressure 33/14 Cardiac Output 6.7 Cardiac Index 3.1 - Exam Gen: awake, alert HEENT: normocephalic, atraumatic, good hearing acuity, moist mucous membranes Resp: Appears to be in mild respiratory distress, does not speak in full sentences CVS: good distal perfusion x 4, RRR, no murmurs, clicks, gallops GI: soft, NTTP, ND : no SPT, no CVAT, malagon catheter is present MSK: + pitting edema, no clubbing Neuro: non-focal, no sensory deficits, appropriate tone Psych: cooperative, euthymic mood - Labs CBC & Chem 7: 07/24/20 04:07 07/24/20 04:07 Labs: Abnormal Lab Results - Last 24 Hours (Table) 07/23/20 07/23/20 07/23/20 Range/Units 12:16 17:10 17:59 WBC (3.8-10.6) k/uL RBC (4.30-5.90) m/uL Hgb (13.0-17.5) gm/dL Hct (39.0-53.0) % RDW (11.5-15.5) % Neutrophils # (1.3-7.7) k/uL Neutrophils # (Manual) (1.3-7.7) k/uL Lymphocytes # (1.0-4.8) k/uL Lymphocytes # (Manual) (1.0-4.8) k/uL Monocytes # (Manual) (0-1.0) k/uL Metamyelocytes # (Man) (0) k/uL Nucleated RBCs (0-0) /100 WBC Sodium (137-145) mmol/L Chloride (98-107) mmol/L BUN (9-20) mg/dL Creatinine (0.66-1.25) mg/dL Glucose (74-99) mg/dL POC Glucose (mg/dL) 169 H 206 H (75-99) mg/dL Calcium (8.4-10.2) mg/dL Magnesium (1.6-2.3) mg/dL Total Bilirubin (0.2-1.3) mg/dL AST (17-59) U/L ALT (4-49) U/L Total Protein (6.3-8.2) g/dL Albumin (3.5-5.0) g/dL TSH (0.465-4.680) mIU/L Urine Blood Large H (Negative) Urine RBC 144 H (0-5) /hpf Urine Mucus Rare H (None) /hpf 07/23/20 07/23/20 07/24/20 Range/Units 20:22 23:13 00:51 WBC (3.8-10.6) k/uL RBC (4.30-5.90) m/uL Hgb (13.0-17.5) gm/dL Hct (39.0-53.0) % RDW (11.5-15.5) % Neutrophils # (1.3-7.7) k/uL Neutrophils # (Manual) (1.3-7.7) k/uL Lymphocytes # (1.0-4.8) k/uL Lymphocytes # (Manual) (1.0-4.8) k/uL Monocytes # (Manual) (0-1.0) k/uL Metamyelocytes # (Man) (0) k/uL Nucleated RBCs (0-0) /100 WBC Sodium (137-145) mmol/L Chloride (98-107) mmol/L BUN (9-20) mg/dL Creatinine (0.66-1.25) mg/dL Glucose (74-99) mg/dL POC Glucose (mg/dL) 274 H 213 H 150 H (75-99) mg/dL Calcium (8.4-10.2) mg/dL Magnesium (1.6-2.3) mg/dL Total Bilirubin (0.2-1.3) mg/dL AST (17-59) U/L ALT (4-49) U/L Total Protein (6.3-8.2) g/dL Albumin (3.5-5.0) g/dL TSH (0.465-4.680) mIU/L Urine Blood (Negative) Urine RBC (0-5) /hpf Urine Mucus (None) /hpf 07/24/20 07/24/20 07/24/20 Range/Units 04:07 04:07 04:07 WBC 12.7 H (3.8-10.6) k/uL RBC 2.48 L (4.30-5.90) m/uL Hgb 8.3 L (13.0-17.5) gm/dL Hct 24.3 L (39.0-53.0) % RDW 15.8 H (11.5-15.5) % Neutrophils # 11.2 H (1.3-7.7) k/uL Neutrophils # (Manual) 11.10 H (1.3-7.7) k/uL Lymphocytes # 0.4 L (1.0-4.8) k/uL Lymphocytes # (Manual) 0.38 L (1.0-4.8) k/uL Monocytes # (Manual) 1.02 H (0-1.0) k/uL Metamyelocytes # (Man) 0.13 H (0) k/uL Nucleated RBCs 1 H (0-0) /100 WBC Sodium 126 L (137-145) mmol/L Chloride 92 L (98-107) mmol/L BUN 65 H (9-20) mg/dL Creatinine 1.99 H (0.66-1.25) mg/dL Glucose 163 H (74-99) mg/dL POC Glucose (mg/dL) (75-99) mg/dL Calcium 8.2 L (8.4-10.2) mg/dL Magnesium 2.7 H (1.6-2.3) mg/dL Total Bilirubin 1.9 H (0.2-1.3) mg/dL AST 82 H (17-59) U/L ALT 150 H (4-49) U/L Total Protein 5.6 L (6.3-8.2) g/dL Albumin 3.4 L (3.5-5.0) g/dL TSH 0.310 L (0.465-4.680) mIU/L Urine Blood (Negative) Urine RBC (0-5) /hpf Urine Mucus (None) /hpf 07/24/20 07/24/20 Range/Units 05:18 08:01 WBC (3.8-10.6) k/uL RBC (4.30-5.90) m/uL Hgb (13.0-17.5) gm/dL Hct (39.0-53.0) % RDW (11.5-15.5) % Neutrophils # (1.3-7.7) k/uL Neutrophils # (Manual) (1.3-7.7) k/uL Lymphocytes # (1.0-4.8) k/uL Lymphocytes # (Manual) (1.0-4.8) k/uL Monocytes # (Manual) (0-1.0) k/uL Metamyelocytes # (Man) (0) k/uL Nucleated RBCs (0-0) /100 WBC Sodium (137-145) mmol/L Chloride (98-107) mmol/L BUN (9-20) mg/dL Creatinine (0.66-1.25) mg/dL Glucose (74-99) mg/dL POC Glucose (mg/dL) 159 H 265 H (75-99) mg/dL Calcium (8.4-10.2) mg/dL Magnesium (1.6-2.3) mg/dL Total Bilirubin (0.2-1.3) mg/dL AST (17-59) U/L ALT (4-49) U/L Total Protein (6.3-8.2) g/dL Albumin (3.5-5.0) g/dL TSH (0.465-4.680) mIU/L Urine Blood (Negative) Urine RBC (0-5) /hpf Urine Mucus (None) /hpf Assessment and Plan Assessment: 1. CAD s/p CABG with 2v bypass, PABLO to LAD, and SVG to posterior decending coronary artery 2. Paroxysmal Atrial Fibrillation, with RVR 3. 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 Acute Blood Loss Anemia, post-operative, resolved 5. Pneumoperitoneum secondary to chest tubes, resolving 6. CONNOR superimposed on CKD, stage III, worsening 7. Hypertension, essential 8. Hyperlipidemia 9. Type II DM, uncontrolled 10. Hypothyroidism 11. Obesity, BMI 30.5 12. Hyponatremia and Hyperkalemia 80 year old man with history of COPD, CKD III, HTN/HLD/CAD/DM, Obesity presented for symptomatic CAD and underwent 2v CABG with post-operative course complicated by respiratory failure secondary to COPD exacerbation, blood loss anemia, paroxysmal atrial fibrillation with RVR, and metabolic derangements. DM 2 - hold metformin - Inulin subcutaneous with sliding scale insulin coverage, check blood sugars every before meals and at bedtime, Levemir added on 07/21. - Blood sugars currently controlled, follow blood sugars closely - A1C from 06/21/2020 5.2, anticipate discharge home back on metformin which may be able to come off in the near future in the outpatient setting. A-fib with RVR On amio and eliquis Off cardizem gtt CONNOR on CKD stage III Baseline cr 1.4-1.5 Likely cardiorenal syndrome, patient received contrast earlier in the admission. Try to avoid IV fluids Recheck in am Avoid nephrotoxic meds Nephrology is following Acute hyponatremia Likely sec to renal failure Monitor Nephrology consulted, checking urine and plasma osmolalities as well as urine sodium. Hyperkalemia Kayexalate 15 g, follow K in a.m. Pneumoperitoneum suspect secondary to mediastinal chest tubes -Tube d/melody -Resolved. Constipation On Senokot, MiraLAX Had a bowel movement today Acute blood loss anemia and thrombocytopenia, anticipated outcome of surgery - follow CBC - transfuse as indicated COPD with acute exacerbation - On steroids, we'll wean down today from 60 to 40 mg every 6 hours. - DuoNebs - on spiriva and advair at home Coronary artery disease -Status post coronary artery bypass grafting -Cardiothoracic and cardiology following HTN - meds per CT surgery - follow BP Hypothyroidism status post partial thyroidectomy - synthroid Morbid obesity with BMI 30.5 -Outpatient structured weight loss Chronic: ADDY Jacobs's Thank you for allowing us to participate in the care of this pleasant patient. Do not hesitate to contact us with questions. Someone can be reached from the [facility] hospitalist group all hours of the day at [phone] or via perfect serve.
--- NOTE | 2020-07-24 11:03 | P.CONS ---
History of Present Illness - Chief Complaint Cardiac debility - History of Present Illness I had the opportunity to see patient for inpatient rehab consultation with regard to cardiac debility. Patient admitted to [facility] July 18 with cardiac disease, underwent three-vessel CABG, Dr. Cantor. Seen in ICU by cardiology and pulmonary as well as hospitalist, due to her Dalila. Seen by Dr. Perez for acute on chronic kidney disease and hyponatremia treated with fluid restriction. Chest x-rays followed for mild cardiomegaly, mild pleural effusions and atelectasis. CT of abdomen and pelvis consistent with postoperative findings as well as a ball fusiform infrarenal AAA, 4.2 cm. Has started therapy. PT reports two-person assistance for transfers and gait 158 feet, hand-held. OT reports moderate assistance for upper and lower dressing and toileting and two-person assistance for transfer. Nurse reports a 1-2 person assistance for transfer and is able to ambulate in the hallway albeit with multiple rests. Previous functional history as elicited from patient: 80-year-old right-handed white male who is lives and 2 floor home with . Both retired. generally does the cooking and laundry in both drive. Patient dependent with standing shower and gait without device. Pile Trimmer is Dr. Mandujano. Denies tobacco has occasional drink, 4-6 per week. Family history of father with stroke in mother with cancer. Review of Systems Review of systems: ENT: Denies sneezes or discharge. Eyes: Denies discharge or photophobia. Cardiac: Sternal discomfort. Pulmonary: At least mild shortness of breath. Gastrointestinal: Denies nausea, emesis, constipation, diarrhea. Genitourinary: Denies discharge or frequency. Musculoskeletal: Denies muscle or bone aches. Neurologic: Generalized weakness. Endocrine: Denies shakes or sweats. Oncology: Denies cancers. Dermatologic: Denies rash, itching, pruritus. ALLERGY/immunology: Denies sneezes, rashes. 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, pneumonia in November, some decreased kidney function History of Any Multi-Drug Resistant Organisms: None Reported Past Surgical History: Heart Catheterization, Heart Catheterization With Stent Additional Past Surgical History / Comment(s): 1/2 thyroid removed, nessa cataract removal & lens implanted, lasik on nessa eyes, EGD Past Anesthesia/Blood Transfusion Reactions: No Reported Reaction Date of Last Stent Placement:: 2001 Past Psychological History: No Psychological Hx Reported Smoking Status: Former smoker Past Alcohol Use History: Occasional Additional Past Alcohol Use History / Comment(s): Drinks 2-3 glasses of wine approximately once a week-not lately, quit smoking 20 years ago Past Drug Use History: None Reported - Past Family History Mother Family Medical History: Cancer Additional Family Medical History / Comment(s): sx: appendix; CA: breast ( from) Father Family Medical History: COPD, CVA/TIA Additional Family Medical History / Comment(s): CVA in 1978 ( from), sinus sx Medications and Allergies Home Medications Medication Instructions Recorded Confirmed Type Albuterol Inhaler (Mhu) [Ventolin 2 puff INHALATION RT-QID PRN 12/11/15 07/14/20 History Hfa Inhaler] Aspirin [Adult Low Dose Aspirin EC] 81 mg PO DAILY 12/11/15 07/14/20 History Calcium Carbonate/Vitamin D3 1 tab PO W/LUNCH 12/11/15 07/18/20 History [Calcium 600 + Vit D 400 Tablet] Fluticasone/Salmeterol [Advair 1 puff INHALATION RT-BID 12/11/15 07/14/20 History 500-50 Diskus] Levothyroxine Sodium [Synthroid] 50 mcg PO DAILY 12/11/15 07/18/20 History Losartan Potassium [Cozaar] 100 mg PO DAILY 12/11/15 07/18/20 History Metoprolol Succinate (ER) [Toprol 100 mg PO DAILY 12/11/15 07/18/20 History Xl] Multivitamin [Men's Multi-Vitamin] 1 tab PO W/LUNCH 12/11/15 07/18/20 History Tiotropium 18 Mcg/Puff [Spiriva] 1 cap INHALATION RT-DAILY 12/11/15 07/14/20 History metFORMIN HCL [Glucophage] 500 mg PO PC-SUPPER 12/11/15 07/18/20 History Ipratropium [place] 0.06%Nasal 1 spray EA NOSTRIL QID PRN 12/04/19 07/18/20 History [Atrovent Nasal 0.06%] Isosorbide Mononitrate [Isosorbide 30 mg PO DAILY 06/20/20 07/18/20 History Mononitrate ER] Atorvastatin [Lipitor] 40 mg PO HS 07/14/20 07/18/20 History Fluticasone Nasal [place] [Flonase 2 spr EA NOSTRIL DAILY PRN 07/14/20 07/18/20 History Nasal [place]] Mupirocin 2% Oint [Bactroban 2% 1 applic NASAL BID 07/14/20 07/18/20 History Oint] Nitroglycerin Sl Tabs [Nitrostat] 0.4 mg SUBLINGUAL Q5M PRN 07/14/20 07/14/20 History Allergies Allergy/AdvReac Type Severity Reaction Status Date / Time No Known Allergies Allergy Verified 07/14/20 12:50 Physical Exam Vitals: Vital Signs Temp Pulse Pulse Resp BP Pulse Ox 07/24/20 09:34 90 07/24/20 07:00 95 30 H 117/69 94 L 07/24/20 06:00 93 28 H 122/75 07/24/20 05:00 99 29 H 134/83 98 07/24/20 04:00 110 H 104 H 18 125/59 97 07/24/20 03:00 99 29 H 124/61 98 07/24/20 02:00 92 25 H 123/62 97 07/24/20 01:00 89 24 116/65 97 07/24/20 00:00 98.9 F 97 25 H 133/88 96 07/23/20 23:51 88 27 H 07/23/20 23:00 93 27 H 128/62 96 07/23/20 22:00 112 H 29 H 132/67 94 L 07/23/20 21:28 92 07/23/20 21:17 90 07/23/20 21:11 88 07/23/20 21:00 96 25 H 130/56 94 L 07/23/20 20:59 92 07/23/20 20:00 97 F L 90 96 26 H 119/60 96 07/23/20 19:00 93 30 H 152/78 100 07/23/20 18:00 86 24 140/63 95 07/23/20 17:29 84 07/23/20 17:18 84 07/23/20 17:00 85 23 149/66 96 07/23/20 16:00 97.8 F 84 33 H 126/63 92 L 07/23/20 15:00 79 28 H 136/59 94 L 07/23/20 14:00 75 31 H 122/57 98 07/23/20 13:00 77 34 H 115/66 96 07/23/20 12:00 97.8 F 71 26 H 125/68 97 07/23/20 11:04 72 07/23/20 11:00 69 32 H 133/50 100 Intake and Output 07/23/20 07/24/20 07/24/20 22:59 06:59 14:59 Intake Total 640 240 Output Total 1700 1100 0 Balance -1060 -1100 240 Intake: Oral 640 240 Output: Urine 1700 1100 0 Other: Voiding Method Urinal Urinal # Voids 0 0 0 Weight 98 kg Skin: Atrophic, intact. General: Overweight build and comfortable appearance. Head: Normocephalic, atraumatic. Eyes: Symmetric. Pupils equal round. Ears: Symmetric. Hearing within normal limits. Mouth: Clear. Neck: Supple. Carotid without bruit. Cardiac: Regular rate and rhythm. Midline sternotomy clean and dressed, wearing harness. Lungs: Clear anteriorly and posteriorly. Abdomen: Soft active nontender. Extremities: Normal tone. Neurological: Mental status: Alert, cooperative, pleasant. Cranial nerves: Symmetric facial tone and trapezius. Motor: Normal strength and isolation all 4 limbs. Sensation: Intact throughout. DTRs: Symmetric and equal throughout. Mobility: Nurse reports 1-2 person assistance for transfers. Did ambulate in the with multiple rests.. Results CBC & Chem 7: 07/24/20 04:07 07/24/20 04:07 Labs: Abnormal Lab Results - Last 24 Hours (Table) 07/23/20 07/23/20 07/23/20 Range/Units 12:16 17:10 17:59 WBC (3.8-10.6) k/uL RBC (4.30-5.90) m/uL Hgb (13.0-17.5) gm/dL Hct (39.0-53.0) % RDW (11.5-15.5) % Neutrophils # (1.3-7.7) k/uL Neutrophils # (Manual) (1.3-7.7) k/uL Lymphocytes # (1.0-4.8) k/uL Lymphocytes # (Manual) (1.0-4.8) k/uL Monocytes # (Manual) (0-1.0) k/uL Metamyelocytes # (Man) (0) k/uL Nucleated RBCs (0-0) /100 WBC Sodium (137-145) mmol/L Chloride (98-107) mmol/L BUN (9-20) mg/dL Creatinine (0.66-1.25) mg/dL Glucose (74-99) mg/dL POC Glucose (mg/dL) 169 H 206 H (75-99) mg/dL Calcium (8.4-10.2) mg/dL Magnesium (1.6-2.3) mg/dL Total Bilirubin (0.2-1.3) mg/dL AST (17-59) U/L ALT (4-49) U/L Total Protein (6.3-8.2) g/dL Albumin (3.5-5.0) g/dL TSH (0.465-4.680) mIU/L Urine Blood Large H (Negative) Urine RBC 144 H (0-5) /hpf Urine Mucus Rare H (None) /hpf 07/23/20 07/23/20 07/24/20 Range/Units 20:22 23:13 00:51 WBC (3.8-10.6) k/uL RBC (4.30-5.90) m/uL Hgb (13.0-17.5) gm/dL Hct (39.0-53.0) % RDW (11.5-15.5) % Neutrophils # (1.3-7.7) k/uL Neutrophils # (Manual) (1.3-7.7) k/uL Lymphocytes # (1.0-4.8) k/uL Lymphocytes # (Manual) (1.0-4.8) k/uL Monocytes # (Manual) (0-1.0) k/uL Metamyelocytes # (Man) (0) k/uL Nucleated RBCs (0-0) /100 WBC Sodium (137-145) mmol/L Chloride (98-107) mmol/L BUN (9-20) mg/dL Creatinine (0.66-1.25) mg/dL Glucose (74-99) mg/dL POC Glucose (mg/dL) 274 H 213 H 150 H (75-99) mg/dL Calcium (8.4-10.2) mg/dL Magnesium (1.6-2.3) mg/dL Total Bilirubin (0.2-1.3) mg/dL AST (17-59) U/L ALT (4-49) U/L Total Protein (6.3-8.2) g/dL Albumin (3.5-5.0) g/dL TSH (0.465-4.680) mIU/L Urine Blood (Negative) Urine RBC (0-5) /hpf Urine Mucus (None) /hpf 07/24/20 07/24/20 07/24/20 Range/Units 04:07 04:07 04:07 WBC 12.7 H (3.8-10.6) k/uL RBC 2.48 L (4.30-5.90) m/uL Hgb 8.3 L (13.0-17.5) gm/dL Hct 24.3 L (39.0-53.0) % RDW 15.8 H (11.5-15.5) % Neutrophils # 11.2 H (1.3-7.7) k/uL Neutrophils # (Manual) 11.10 H (1.3-7.7) k/uL Lymphocytes # 0.4 L (1.0-4.8) k/uL Lymphocytes # (Manual) 0.38 L (1.0-4.8) k/uL Monocytes # (Manual) 1.02 H (0-1.0) k/uL Metamyelocytes # (Man) 0.13 H (0) k/uL Nucleated RBCs 1 H (0-0) /100 WBC Sodium 126 L (137-145) mmol/L Chloride 92 L (98-107) mmol/L BUN 65 H (9-20) mg/dL Creatinine 1.99 H (0.66-1.25) mg/dL Glucose 163 H (74-99) mg/dL POC Glucose (mg/dL) (75-99) mg/dL Calcium 8.2 L (8.4-10.2) mg/dL Magnesium 2.7 H (1.6-2.3) mg/dL Total Bilirubin 1.9 H (0.2-1.3) mg/dL AST 82 H (17-59) U/L ALT 150 H (4-49) U/L Total Protein 5.6 L (6.3-8.2) g/dL Albumin 3.4 L (3.5-5.0) g/dL TSH 0.310 L (0.465-4.680) mIU/L Urine Blood (Negative) Urine RBC (0-5) /hpf Urine Mucus (None) /hpf 07/24/20 07/24/20 Range/Units 05:18 08:01 WBC (3.8-10.6) k/uL RBC (4.30-5.90) m/uL Hgb (13.0-17.5) gm/dL Hct (39.0-53.0) % RDW (11.5-15.5) % Neutrophils # (1.3-7.7) k/uL Neutrophils # (Manual) (1.3-7.7) k/uL Lymphocytes # (1.0-4.8) k/uL Lymphocytes # (Manual) (1.0-4.8) k/uL Monocytes # (Manual) (0-1.0) k/uL Metamyelocytes # (Man) (0) k/uL Nucleated RBCs (0-0) /100 WBC Sodium (137-145) mmol/L Chloride (98-107) mmol/L BUN (9-20) mg/dL Creatinine (0.66-1.25) mg/dL Glucose (74-99) mg/dL POC Glucose (mg/dL) 159 H 265 H (75-99) mg/dL Calcium (8.4-10.2) mg/dL Magnesium (1.6-2.3) mg/dL Total Bilirubin (0.2-1.3) mg/dL AST (17-59) U/L ALT (4-49) U/L Total Protein (6.3-8.2) g/dL Albumin (3.5-5.0) g/dL TSH (0.465-4.680) mIU/L Urine Blood (Negative) Urine RBC (0-5) /hpf Urine Mucus (None) /hpf Assessment and Plan Plan: Impression: 1. Cardiac debility with history of CAD and angina and recent CABG 3 vessel. 2. Acute on chronic kidney disease. 3. Hypertension. 4. Distant.. 5. COPD. 6. Diabetes. 7. Hypothyroid. Comments and plan: At this time PT and OT are ongoing. Safety concerns noted is demonstrating ability tolerate and benefit from therapies as well as improvement. At this time inpatient rehab appears to be appropriate. Patient aware of reasons and agreeable.
[2020-07-24 11:07] LABS: T4, Free (Free Thyroxine) 1.75 ng/dL (0.78-2.19)
[2020-07-24] MEDS ORDERED: TAMSULOSIN 0.4 MG CAP.ER.24H PO SCH (11:15)
[2020-07-24 11:30] LABS: Glucose,Whole Blood 176 mg/dL (75-99)
[2020-07-24] MEDS: bisacodyL 10 MG SUPP RECTAL SCH (11:33)
--- NOTE | 2020-07-24 12:26 | PN ---
PROGRESS NOTE Mr. Tinoco has significant calcified coronary disease, underwent 2 vessel bypass. He is recovering slowly, remains in atrial fibrillation, rate is moderate. His ejection fraction is in the 50% range. His sodium is also low. He appears to be exhausted, not sleeping that well. I am recommending that we cut down amiodarone 200 mg b.i.d., add a small dose of verapamil 40 mg b.i.d. to optimize rate control, continue carvedilol, decreased oral fluids to see if the sodium comes up and repeat a BMP tomorrow. Hemodynamically stable in atrial fibrillation at a rate of about 120 per minute, irregular, JVD 1 cm, no carotid bruit. S1, S2 heard normally, short systolic murmur at the base is audible. Lungs reveal scattered rhonchi. Diminished air entry. Abdomen and lower extremity exam unchanged. I am recommending incentive spirometry, pulmonary toilet, decrease amiodarone, add a small dose of verapamil and control oral fluids so that is sodium may improve. Prognosis remains fair. MMODL / IJN: [id number] /
--- NOTE | 2020-07-24 12:32 | P.PN ---
Subjective Progress Note Date: 07/24/20 CHIEF COMPLAINT: Status post CABG 2 vessels HISTORY OF PRESENT ILLNESS: Patient is being followed in regards to pneumoperitoneum. Patient remains in the ICU. He is status post 2 vessel coronary bypass graft surgery. Patient denies any abdominal pain. He'll be transferred out of the ICU later today. He is having bowel movements. Patient is afebrile. WBC 12.7 sodium 126 PHYSICAL EXAM: VITAL SIGNS: Reviewed. GENERAL: Well-developed in no acute distress. HEENT: No sclera icterus. Extraocular movements grossly intact. Moist buccal mucosa. Head is atraumatic, normocephalic. ABDOMEN: Soft. Nondistended. Nontender. NEUROLOGIC: Alert and oriented. Cranial nerves II through XII grossly intact. ASSESSMENT: 1. Pneumoperitoneum secondary to chest tube and recent CABG. Pneumoperitoneum no longer present chest x-ray 2. symptomatic triple-vessel coronary artery disease status post 2 vessel coronary bypass grafting surgery 3. History of coronary artery disease with stent placement to the RCA in 2002 4. Hypertension 5. Diabetes mellitus type 2 PLAN: -Continue supportive care -No surgical intervention planned -Patient is being evaluated for possible inpatient rehab Physician Warehouse Checker note has been reviewed by physician. Signing provider agrees with the documented findings, assessment, and plan of care. Objective - Vital Signs Vital signs: Vital Signs Temp 96.7 F L 07/24/20 09:00 Pulse 106 H 07/24/20 12:00 Resp 21 07/24/20 12:00 BP 115/84 07/24/20 12:00 Pulse Ox 95 07/24/20 12:00 Intake & Output 07/23/20 07/24/20 07/24/20 18:59 06:59 18:59 Intake Total 600 540 240 Output Total 1525 1600 1918 Balance -252 -6226 -6958 Weight 98 kg Intake: Oral 600 540 240 Output: Urine 1525 1600 1000 Straight 1000 Post Void Residual 918 Other: Voiding Method Indwelling Catheter Urinal Urinal # Voids 0 0 0 ABP, PAP, CO, CI - Last Documented Arterial Blood Pressure 125/61 Pulmonary Artery Pressure 33/14 Cardiac Output 6.7 Cardiac Index 3.1 - Labs CBC & Chem 7: 07/24/20 04:07 07/24/20 04:07 Labs: Abnormal Lab Results - Last 24 Hours (Table) 07/23/20 07/23/20 07/23/20 Range/Units 17:10 17:59 20:22 WBC (3.8-10.6) k/uL RBC (4.30-5.90) m/uL Hgb (13.0-17.5) gm/dL Hct (39.0-53.0) % RDW (11.5-15.5) % Neutrophils # (1.3-7.7) k/uL Neutrophils # (Manual) (1.3-7.7) k/uL Lymphocytes # (1.0-4.8) k/uL Lymphocytes # (Manual) (1.0-4.8) k/uL Monocytes # (Manual) (0-1.0) k/uL Metamyelocytes # (Man) (0) k/uL Nucleated RBCs (0-0) /100 WBC Sodium (137-145) mmol/L Chloride (98-107) mmol/L BUN (9-20) mg/dL Creatinine (0.66-1.25) mg/dL Glucose (74-99) mg/dL POC Glucose (mg/dL) 206 H 274 H (75-99) mg/dL Calcium (8.4-10.2) mg/dL Magnesium (1.6-2.3) mg/dL Total Bilirubin (0.2-1.3) mg/dL AST (17-59) U/L ALT (4-49) U/L Total Protein (6.3-8.2) g/dL Albumin (3.5-5.0) g/dL TSH (0.465-4.680) mIU/L Urine Blood Large H (Negative) Urine RBC 144 H (0-5) /hpf Urine Mucus Rare H (None) /hpf 07/23/20 07/24/20 07/24/20 Range/Units 23:13 00:51 04:07 WBC 12.7 H (3.8-10.6) k/uL RBC 2.48 L (4.30-5.90) m/uL Hgb 8.3 L (13.0-17.5) gm/dL Hct 24.3 L (39.0-53.0) % RDW 15.8 H (11.5-15.5) % Neutrophils # 11.2 H (1.3-7.7) k/uL Neutrophils # (Manual) 11.10 H (1.3-7.7) k/uL Lymphocytes # 0.4 L (1.0-4.8) k/uL Lymphocytes # (Manual) 0.38 L (1.0-4.8) k/uL Monocytes # (Manual) 1.02 H (0-1.0) k/uL Metamyelocytes # (Man) 0.13 H (0) k/uL Nucleated RBCs 1 H (0-0) /100 WBC Sodium (137-145) mmol/L Chloride (98-107) mmol/L BUN (9-20) mg/dL Creatinine (0.66-1.25) mg/dL Glucose (74-99) mg/dL POC Glucose (mg/dL) 213 H 150 H (75-99) mg/dL Calcium (8.4-10.2) mg/dL Magnesium (1.6-2.3) mg/dL Total Bilirubin (0.2-1.3) mg/dL AST (17-59) U/L ALT (4-49) U/L Total Protein (6.3-8.2) g/dL Albumin (3.5-5.0) g/dL TSH (0.465-4.680) mIU/L Urine Blood (Negative) Urine RBC (0-5) /hpf Urine Mucus (None) /hpf 07/24/20 07/24/20 07/24/20 Range/Units 04:07 04:07 05:18 WBC (3.8-10.6) k/uL RBC (4.30-5.90) m/uL Hgb (13.0-17.5) gm/dL Hct (39.0-53.0) % RDW (11.5-15.5) % Neutrophils # (1.3-7.7) k/uL Neutrophils # (Manual) (1.3-7.7) k/uL Lymphocytes # (1.0-4.8) k/uL Lymphocytes # (Manual) (1.0-4.8) k/uL Monocytes # (Manual) (0-1.0) k/uL Metamyelocytes # (Man) (0) k/uL Nucleated RBCs (0-0) /100 WBC Sodium 126 L (137-145) mmol/L Chloride 92 L (98-107) mmol/L BUN 65 H (9-20) mg/dL Creatinine 1.99 H (0.66-1.25) mg/dL Glucose 163 H (74-99) mg/dL POC Glucose (mg/dL) 159 H (75-99) mg/dL Calcium 8.2 L (8.4-10.2) mg/dL Magnesium 2.7 H (1.6-2.3) mg/dL Total Bilirubin 1.9 H (0.2-1.3) mg/dL AST 82 H (17-59) U/L ALT 150 H (4-49) U/L Total Protein 5.6 L (6.3-8.2) g/dL Albumin 3.4 L (3.5-5.0) g/dL TSH 0.310 L (0.465-4.680) mIU/L Urine Blood (Negative) Urine RBC (0-5) /hpf Urine Mucus (None) /hpf 07/24/20 07/24/20 Range/Units 08:01 11:28 WBC (3.8-10.6) k/uL RBC (4.30-5.90) m/uL Hgb (13.0-17.5) gm/dL Hct (39.0-53.0) % RDW (11.5-15.5) % Neutrophils # (1.3-7.7) k/uL Neutrophils # (Manual) (1.3-7.7) k/uL Lymphocytes # (1.0-4.8) k/uL Lymphocytes # (Manual) (1.0-4.8) k/uL Monocytes # (Manual) (0-1.0) k/uL Metamyelocytes # (Man) (0) k/uL Nucleated RBCs (0-0) /100 WBC Sodium (137-145) mmol/L Chloride (98-107) mmol/L BUN (9-20) mg/dL Creatinine (0.66-1.25) mg/dL Glucose (74-99) mg/dL POC Glucose (mg/dL) 265 H 176 H (75-99) mg/dL Calcium (8.4-10.2) mg/dL Magnesium (1.6-2.3) mg/dL Total Bilirubin (0.2-1.3) mg/dL AST (17-59) U/L ALT (4-49) U/L Total Protein (6.3-8.2) g/dL Albumin (3.5-5.0) g/dL TSH (0.465-4.680) mIU/L Urine Blood (Negative) Urine RBC (0-5) /hpf Urine Mucus (None) /hpf
--- NOTE | 2020-07-24 14:29 | XR ---
EXAMINATION TYPE: XR KUB portable DATE OF EXAM: 07/24/2020 2:18 PM CLINICAL HISTORY: Abdominal pain. TECHNIQUE: Two Portable supine KUB images of the abdomen are obtained. COMPARISON: CT findings 5 days ago. FINDINGS: Gas prominent stomach remains present. Scattered gas prominent small and large bowel loops with some residual contrast in colon noted. Some gas surrounds bowel wall left bowel loops towards th e periphery thought to reflect continued free air. Correlate clinically. Left basilar pleural drainag e catheters not identified on current study. There is new small to tiny right pleural effusion. There is partial visualization of atrial appendage clips, sternal wires, mediastinal clips. There is moder ate narrowing and mild to moderate spurring in both hip joints. Vascular calcification of the iliac a rterial branches redemonstrated. IMPRESSION: As above. Persistent pneumoperitoneum thought present despite interval removal of left ba silar pleural drainage catheters. Correlate clinically. Overall nonspecific but felt to be nonobstruc tive bowel gas pattern noted. A Yellow level critical message alert has been initiated for Bertha Marin via the [employer] tical Results System on 07/24/2020 2:27 PM. This message alert has been sent to Bertha Marin via the pr eferences provided by the clinician for the receipt of Radiology Critical Findings. Message ID [id number].
--- NOTE | 2020-07-24 15:08 | XR ---
EXAMINATION TYPE: XR abdomen 1V DATE OF EXAM: 07/24/2020 2:51 PM CLINICAL HISTORY: NG tube placement. TECHNIQUE: Single upright KUB image of the abdomen is obtained. COMPARISON: Abdominal x-ray earlier today. CT 5 days ago.. FINDINGS: New nasogastric tube projects below diaphragm. Interval successful decompression of stomach . Persistent gas prominent small and large bowel loops partially imaged. No definitive pneumoperitone um on upright image. Overlying sternal wires and mediastinal clips redemonstrated. Persistent small t o tiny right pleural effusion. Visualized osseous structures are intact. IMPRESSION: Satisfactory positioning of nasogastric tube. Persistent nonspecific bowel gas pattern. N o definitive pneumoperitoneum on this study.
--- NOTE | 2020-07-24 15:41 | PN ---
PROGRESS NOTE Patient is seen for followup for acute kidney injury and hyponatremia. He is status post status post coronary artery bypass surgery on 07/18/2020. The patient's serum creatinine is at about 1.8 to 1.9 mg/dL over the last couple of days, with a prior creatinine of 1.2 on admission. He is currently not hypotensive. Blood pressure is 110 to 120 mmHg systolic. The patient complains of weakness. No significant chest pains. No worsening shortness of breath. He is mildly short of breath. Patient has been having issues with urine retention. He did have a straight catheterization done last night and he states this morning he has not had urine output since last night. We will do a bladder scan. Oral intake is fair. No nausea, vomiting or diarrhea. PHYSICAL EXAMINATION: On examination today, blood pressure this morning was 106/90, heart rate 98 per minute. Patient is afebrile. EXAMINATION OF THE HEART: S1 and S2. EXAMINATION OF LUNGS: Bilateral breath sounds are heard. Decreased breath sounds at bases. ABDOMEN: Soft, non-tender. Examination of lower extremities shows edema 1+ bilaterally. 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 LABS/IMAGING: Labs show sodium 126, potassium 4.9, chloride 92. BUN 65, creatinine 1.9, calcium 8.2, magnesium 2.7, hemoglobin 8.3 g/dL. Chest x-ray done this morning continues to show mild cardiomegaly with tiny pleural effusions. Not significantly changed from yesterday. PLAN: 1. Check post-void residual. If it remains elevated, patient will need a Villafana catheter inserted if he continues to require straight cath. He did receive IV Lasix yesterday. We will likely repeat a dose of Lasix if his respiratory status worsens; however, if there is evidence of urine retention I will first correct outlet obstruction before diuresing. However, if the patient's respiratory status worsens, he can receive a dose of IV Lasix today. 2. Status post coronary artery bypass surgery 07/18/2020. 3. Anemia. No active GI bleed noted. Hemoglobin is fairly stable. 4. Hypervolemic hyponatremia, improved post Lasix yesterday. 5. Generalized debility. 6. Chronic kidney disease, stage 3. Baseline creatinine 1.2 to 1.5 secondary to nephrosclerosis. UA was benign. Check post-void residual. Repeat sodium this evening. If it is not further improved, I will give him a dose of IV Lasix today. Repeat labs again in a.m. Continue to avoid nephrotoxic agents. Encourage increased oral intake, particularly protein. MMODL / IJN: [id number] /
[2020-07-24 16:09] LABS: Glucose,Whole Blood 132 mg/dL (75-99)
[2020-07-24] MEDS: LACTATED RINGERS 1,000 ML IV SCH ×5 (17:00→23:59)
[2020-07-24] MEDS: PIPERACILLIN-TAZOBACTAM 3.375 GM in SODIUM CHLORIDE 0.9% 100 ML IVPB SCH (17:00)
[2020-07-24] MEDS ORDERED: LACTATED RINGERS 1,000 ML IV ONE ×3 (17:07→18:12)
[2020-07-24] MEDS ORDERED: ePHEDrine SULFATE/0.9% NACL/PF 50 MG/5 ML SYRINGE IV ONE (17:07)
[2020-07-24] MEDS ORDERED: ETOMIDATE 2 MG/ML 10 ML VIAL ONE (17:07)
[2020-07-24] MEDS ORDERED: SUCCINYLCHOLINE CHLORIDE 100 MG/5 ML SYR IV ONE (17:07)
[2020-07-24] MEDS ORDERED: ROCURONIUM 10 MG/ML (10 ML VIAL) IV ONE (17:07)
[2020-07-24] MEDS ORDERED: MIDAZOLAM 2 MG/2 ML VIAL ONE (17:07)
[2020-07-24] MEDS ORDERED: PHENYLEPHRINE 10 MG/ML VIAL ONE (17:07)
[2020-07-24 17:15] LABS: Amylase 72 U/L (30-110); Lipase 105 U/L (23-300); Sodium 136 mmol/L (137-145)
--- NOTE | 2020-07-24 17:20 | CT ---
EXAMINATION TYPE: CT abdomen pelvis wo con DATE OF EXAM: 07/24/2020 COMPARISON: July 19, 2020 HISTORY: Abdominal pain post open heart. CT DLP: 928.2 mGycm Automated exposure control for dose reduction was used. Images were obtained from the diaphragm to the floor the pelvis. There is oral contrast from previous exam. There is mild to moderate right pleural effusion. There is airspace consolidation and atelectasis rig ht lower lobe. There is small pericardial effusion. There is small left pleural effusion. There is co ronary artery calcification. There is large amount of portal venous air in the anterior liver. There is nasogastric tube in the st omach. Stomach has normal size. There is also air in the superior mesenteric vein and in the splenic vein. The bile ducts are not dilated. There are numerous calcified gallstones. Gallbladder has normal size. There is no pancreatic mass. Spleen is intact. There is no adrenal mass. Kidneys have normal size. There is no hydronephrosis. There is small amount of air in the urinary bladder. Ureters are not dilated. There is no inguinal hernia. There is no guillermo e fluid in the pelvis. There are dilated multiple small bowel loops with intramural air. Small bowel measures up to 4.8 cm. There is some oral contrast in the large bowel. I see no evidence of pneumoperitoneum. IMPRESSION: Extensive portal venous air and intramural air in the Dilated small bowel in the mid abdomen. Gangren ous small bowel is possible. Pleural effusions and pulmonary consolidation as above. Small pericardial effusion. This exam was discussed with the patient's nurse in the ICU at 5:30 PM.
--- NOTE | 2020-07-24 17:47 | P.OP ---
Date of Procedure: 07/24/20 Preoperative Diagnosis: Ischemic bowel Free air Postoperative Diagnosis: Pneumatosis of small bowel Procedure(s) Performed: Small bowel resection Anesthesia: ENEIDA Surgeon: Anjel Dempsey Estimated Blood Loss (ml): 10 Pathology: other (Jejunum and ileum) Condition: stable Disposition: ICU Description of Procedure: The patient's placed on the operative table in supine position. He received general anesthesia. His abdomen was prepped and draped in sterile fashion. A midline incision was made and then the abdomen was entered. Under the abdomen there was free air noted. The small bowel was quite dilated. The small bowel was run terminale was found. The cecum was found. Approximately 4 inches from the ileocecal valve the bowel appeared to be ischemic with evidence of pneumatosis. This was tracked back to the level of the mid jejunum. The small bowel was then transected proximally distally. And then using Enseal device the mesentery the bowel was divided. The specimen sent to pathology. A [id number] functional end-to-end staple anastomosis was created using GRACIA and TA staplers. 3-0 GI silk sutures uses crotch stitch. The cecum appeared viable. The cecum was distended however the liquid stool and gas was milked from the cecum. There is no inciting necrosis cecum. The abdomen was irrigated bleeding seen. The fascia was closed with looped #1 PDS suture. Skin was closed eliecer. Patient top she will was sent to recovery in stable condition.
--- NOTE | 2020-07-24 18:12 | P.ANPRN ---
Procedure Note - Anesthesia - Invasive Line Right Central Line Time Out Performed: Yes Date of Procedure: 07/24/20 Time of Procedure: 17:30 Location of Patient: OR Preparation: Sterile Prep, Sterile Dressing Ultrasound Used: No Image Stored and Saved: No Narrative: Central line placement per sterile protocol utilized.7 maltese triple Lumen central line catheter placed for Fluid reusitations and for invasive monitering
[2020-07-24 18:36] LABS: ABG Base Excess -2.6 mmol/L; ABG HCO3 24 mmol/L (21-25); ABG PCO2 47 mmHg (35-45); ABG PH 7.31 (7.35-7.45); ABG PO2 318 mmHg (83-108); ABG TCO2 25 mmol/L (19-24); Allen Test Performed? Yes
--- NOTE | 2020-07-24 19:03 | XR ---
EXAMINATION TYPE: XR chest 1V confirm line [facility] DATE OF EXAM: 07/24/2020 COMPARISON: Today HISTORY: Check line placement TECHNIQUE: FINDINGS: There is right jugular catheter with the tip in the superior vena cava. The endotracheal tu be is 6 cm from the mickey. There is nasogastric tube in the stomach. There are sternal wires. There is some linear infiltrate and atelectasis at both lung bases. There is no heart failure. There are ch est leads. IMPRESSION: Linear infiltrate and atelectasis and pleural fluid at the lung bases not changed compared to exam this morning. Tubing in fairly good position. No obvious heart failure.
[2020-07-24] MEDS: AMIODARONE 360 MG in DEXTROSE 5% IN WATER 200 ML IV SCH ×2 (19:10)
[2020-07-24] MEDS: PHENYLEPHRINE 40 MG in SODIUM CHLORIDE 0.9% 250 ML IV SCH (19:32)
[2020-07-24 19:43] LABS: Albumin 2.7 g/dL (3.5-5.0); Calcium 7.6 mg/dL (8.4-10.2); Potassium 4.8 mmol/L (3.5-5.1); Total Bilirubin 1.6 mg/dL (0.2-1.3); Total Protein 4.7 g/dL (6.3-8.2)
[2020-07-24 19:49] LABS: Anisocytosis Slight; HCT 25.3 % (39.0-53.0); HGB 8.7 gm/dL (13.0-17.5); Hypochromasia Slight; MCH 33.7 pg (25.0-35.0); MCHC 34.2 g/dL (31.0-37.0); MCV 98.5 fL (80.0-100.0); Macrocytosis Slight; Mean Platelet Volume 7.1; Platelet Count 188 k/uL (150-450); Poikilocytosis Slight; RBC 2.57 m/uL (4.30-5.90); RDW 16.1 % (11.5-15.5); WBC 7.8 k/uL (3.8-10.6)
[2020-07-24 20:08] LABS: Band Neutrophils % 11 %; Lymphocytes # (M) 0.55 k/uL (1.0-4.8); Metamyelocytes # (M) 0.47 k/uL (0); Metamyelocytes % 6 %; Monocytes # (M) 0.39 k/uL (0-1.0); Myelocytes # (M) 0.08 k/uL (0); Myelocytes % 1 %; Neutrophils % (M) 70 %; Nucleated Red Blood Cells 0 /100 WBC (0-0); Total Cells Counted 100
[2020-07-24 20:09] LABS: Anisocytosis (M) Present; Polychromasia Present; Toxic Granulation Present
[2020-07-24 20:25] LABS: Glucose,Whole Blood 214 mg/dL (75-99)
[2020-07-24] MEDS: INSULIN DETEMIR (LEVEMIR) 100 UNIT/ML SYR SQ SCH (20:30)
[2020-07-24] MEDS: PANTOPRAZOLE 40 MG/10 ML VIAL IVP SCH (20:31)
[2020-07-24] MEDS ORDERED: AMIODARONE 200 MG TAB PO SCH (21:00)
[2020-07-25] MEDS: LACTATED RINGERS 1,000 ML IV SCH ×2 (00:04→12:03)
[2020-07-25] MEDS: PIPERACILLIN-TAZOBACTAM 3.375 GM in SODIUM CHLORIDE 0.9% 100 ML IVPB SCH ×4 (00:04→23:08)
[2020-07-25 00:29] LABS: Glucose,Whole Blood 174 mg/dL (75-99)
[2020-07-25 03:20] LABS: Glucose,Whole Blood 112 mg/dL (75-99)
[2020-07-25 04:13] LABS: HCT 23.5 % (39.0-53.0); HGB 8.1 gm/dL (13.0-17.5); Hypochromasia Slight; MCH 33.8 pg (25.0-35.0); MCHC 34.5 g/dL (31.0-37.0); Macrocytosis Slight; Mean Platelet Volume 7.7; Platelet Count 194 k/uL (150-450); Poikilocytosis Slight; RDW 15.7 % (11.5-15.5)
[2020-07-25 04:37] LABS: Albumin 2.5 g/dL (3.5-5.0); Calcium 7.7 mg/dL (8.4-10.2); Magnesium 2.8 mg/dL (1.6-2.3); Total Bilirubin 1.6 mg/dL (0.2-1.3); Total Protein 4.4 g/dL (6.3-8.2)
[2020-07-25 04:54] LABS: ABG Base Excess 0.4 mmol/L; ABG HCO3 24 mmol/L (21-25); ABG Oxygen Saturation 96.9 % (94-97); ABG PCO2 35 mmHg (35-45); ABG PH 7.45 (7.35-7.45); ABG PO2 75 mmHg (83-108); ABG TCO2 26 mmol/L (19-24)
[2020-07-25] MEDS: LEVOTHYROXINE 50 MCG TAB PO SCH (04:54)
[2020-07-25] MEDS: INSULIN ASPART (NovoLOG) 100 UNIT/ML VIAL SQ SCH ×6 (04:54→23:08)
[2020-07-25 05:02] LABS: Band Neutrophils % 12 %; Lymphocytes # (M) 1.09 k/uL (1.0-4.8); Metamyelocytes # (M) 0.22 k/uL (0); Metamyelocytes % 1 %; Monocytes # (M) 0.65 k/uL (0-1.0); Myelocytes # (M) 0.22 k/uL (0); Myelocytes % 1 %; Neutrophils % (M) 78 %; Nucleated Red Blood Cells 3 /100 WBC (0-0); Polychromasia Present; Total Cells Counted 200; WBC 21.7 k/uL (3.8-10.6)
[2020-07-25 05:35] LABS: Allen Test Performed? no
[2020-07-25 06:29] LABS: Glucose,Whole Blood 189 mg/dL (75-99)
--- NOTE | 2020-07-25 06:50 | P.PN ---
Subjective Progress Note Date: 07/25/20 80-year-old male patient postoperative bypass surgery. Postop day number #6. The patient underwent bypass surgery. The patient remains extubated on 3 L of oxygen by nasal cannula. Chest x-ray shows small right-sided pleural effusion. The patient is awake and alert. The patient is using incentive spirometer. The patient is able to sit up on a chair. He is feeling better on a daily basis. The patient is of coronary artery disease and previous stenting of her back in 2002. Patient has hyperlipidemia and hypothyroidism patient has undergone a partial thyroidectomy he had the patient is an ex-smoker. Mother with COPD with an FEV1 of 56% predicted with some bullous changes. The patient has diabetes mellitus type 2 with a preop hemoglobin A1c of 5.2. The patient is, stage III. The postoperative course was complicated by in acute blood loss anemia which is expected outcome of surgery and the patient also developed atrial fibrillation and other expected outcome of surgery. There was also some limited pneumomediastinum secondary to mediastinal tubes. The patient's currently is in normal sinus rhythm. He is using incentive spirometer.he is pulling approximately 500 on the incentive spirometer. No appreciated bronchospasm wheezing on today's evaluation. Chest x-ray shows small bilateral pleural effusion slightly worse on the right. The patient has no chest tubes at this point in time. He remains nature fibrillation with controlled rate. On 07/25, the patient is being seen in the follow-up. The patient is postop day #1 following coronary artery bypass surgery. Events occurring yesterday were noted. The patient developed worsening abdominal pain and diste ntion and following that the patient had a CAT scan of the abdomen that showed extensive portal venous air and intraluminal air along with dilated small bowel in the mid abdomen. Bowel gangrene an infarction was suspected. The patient also has a mild to moderate-sized right-sided pleural effusion and small pericardial effusion. The patient was taken to the operating room and the patient underwent a exploratory laparotomy for pneumatosis of the small bowel. The patient underwent small bowel resection. The patient was found to have dilated small bowel. The bowel was ischemic approximately 4 inches from the ileocecal valve. Bowel resection was done and following that the patient was kept intubated on mechanical ventilator and the patient was brought back to the ICU. At this point in time, the patient sedated with propofol and the patient currently intubated on a mechanical ventilator. Orogastric and orotracheal tube was placed. The patient also has a right IJ triple-lumen catheter. Patient is currently on no pressors. She had received some Varun-Synephrine and operating room. The patient is currently on AC and a rate of 14 and TV 600 PEEP 5 and FIO2 50%. Propofol at 10 mc/kg/min and the patient has been on LR at 125cc/hr. The patient is on IV zosyn as a broad-spectrum antibiotic coverage.the blood gases from this morning showed a pH of 7.4 with a pCO2 of 35 and pO2 of 74. Chest x-ray showing a right-sided pleural effusion. ET tube is in a good location. Lactated Ringer is down to 75 mL an hour. Urine output is ordered of 20-30 mL. Objective - Vital Signs Vital signs: Vital Signs Temp 96.5 F L 07/25/20 04:00 Pulse 113 H 07/25/20 06:00 Resp 20 07/25/20 06:00 BP 83/61 07/25/20 05:30 Pulse Ox 94 L 07/25/20 06:00 Intake & Output 07/24/20 07/24/20 07/25/20 06:59 18:59 06:59 Intake Total 540 1240 1800 Output Total 1600 2993 405 Balance -1060 -1753 1395 Weight 98 kg Intake: IV 1000 1800 Lactated Ringers 1,000 ml 700 @ 125 mls/hr IV .Q8H WADE Rx#:[id number] Lactated Ringers 1,000 ml 1000 @ 999 mls/hr IV .Q1H1M WADE Rx#:[id number] Piperacillin-Tazobactam 3 100 .375 gm In Sodium Chloride 0.9% 100 ml @ 25 mls/hr IVPB Q8HR WADE Rx# :[id number] Oral 540 240 Output: Gastric Drainage 250 Urine 1600 1800 405 Straight 1000 Post Void Residual 918 Estimated Blood Loss 25 Other: Voiding Method Urinal Toilet Indwelling Catheter Urinal # Voids 0 0 ABP, PAP, CO, CI - Last Documented Arterial Blood Pressure 105/57 Pulmonary Artery Pressure 33/14 Cardiac Output 6.7 Cardiac Index 3.1 - Exam Gen. appearance the patient is intubated, comfortable mechanical ventilator. Orogastric and orotracheal place. Head exam was generally normal. There was no scleral icterus or corneal arcus. Mucous membranes were moist. Neck was supple and without jugular venous distension, thyromegaly, or carotid bruits. Carotids were easily palpable bilaterally. There was no adenopathy. the patient has orogastric tube and orotracheal tube and the patient has a right IJ triple-lumen catheter Lungs sounds are diminished in the right lung base. Breath sounds are otherwise within normal limits. Sternum stable clean and intact. Cardiac exam revealed the PMI to be normally situated and sized. The rhythm was regular and no extrasystoles were noted during several minutes of auscultation. The first and second heart sounds were normal and physiologic splitting of the second heart sound was noted. There were no murmurs, rubs, clicks, or gallops. Abdomen is distended. Bowel sounds are hypoactive and nearly absent. Surgical wound site is dry. Overall. No direct tenderness. No rebound tenderness. No guarding. Normoactive. Examination of the extremities revealed easily palpable radial, femoral and pedal pulses. There was no cyanosis, clubbing or edema. Examination of the skin revealed no evidence of significant rashes, suspicious appearing nevi or other concerning lesions. Neurologically, the patient is awake and alert and the patient does not have any focal neurological deficit. Cranial nerves are essentially intact. - Labs CBC & Chem 7: 07/25/20 04:05 07/25/20 04:05 Labs: Abnormal Lab Results - Last 24 Hours (Table) 07/24/20 07/24/20 07/24/20 Range/Units 04:07 08:01 11:28 WBC (3.8-10.6) k/uL RBC (4.30-5.90) m/uL Hgb (13.0-17.5) gm/dL Hct (39.0-53.0) % RDW (11.5-15.5) % Neutrophils # (Manual) (1.3-7.7) k/uL Lymphocytes # (Manual) (1.0-4.8) k/uL Metamyelocytes # (Man) (0) k/uL Myelocytes # (Manual) (0) k/uL Nucleated RBCs (0-0) /100 WBC ABG pH (7.35-7.45) ABG pCO2 (35-45) mmHg ABG pO2 (83-108) mmHg ABG Total CO2 (19-24) mmol/L ABG O2 Saturation (94-97) % Sodium (137-145) mmol/L Chloride (98-107) mmol/L BUN (9-20) mg/dL Creatinine (0.66-1.25) mg/dL Glucose (74-99) mg/dL POC Glucose (mg/dL) 265 H 176 H (75-99) mg/dL Calcium (8.4-10.2) mg/dL Magnesium (1.6-2.3) mg/dL Total Bilirubin (0.2-1.3) mg/dL AST (17-59) U/L ALT (4-49) U/L Alkaline Phosphatase (38-126) U/L Total Protein (6.3-8.2) g/dL Albumin (3.5-5.0) g/dL TSH 0.310 L (0.465-4.680) mIU/L 07/24/20 07/24/20 07/24/20 Range/Units 16:06 16:56 18:32 WBC (3.8-10.6) k/uL RBC (4.30-5.90) m/uL Hgb (13.0-17.5) gm/dL Hct (39.0-53.0) % RDW (11.5-15.5) % Neutrophils # (Manual) (1.3-7.7) k/uL Lymphocytes # (Manual) (1.0-4.8) k/uL Metamyelocytes # (Man) (0) k/uL Myelocytes # (Manual) (0) k/uL Nucleated RBCs (0-0) /100 WBC ABG pH 7.31 L (7.35-7.45) ABG pCO2 47 H (35-45) mmHg ABG pO2 318 H (83-108) mmHg ABG Total CO2 25 H (19-24) mmol/L ABG O2 Saturation 100.0 H (94-97) % Sodium 136 L (137-145) mmol/L Chloride (98-107) mmol/L BUN (9-20) mg/dL Creatinine (0.66-1.25) mg/dL Glucose (74-99) mg/dL POC Glucose (mg/dL) 132 H (75-99) mg/dL Calcium (8.4-10.2) mg/dL Magnesium (1.6-2.3) mg/dL Total Bilirubin (0.2-1.3) mg/dL AST (17-59) U/L ALT (4-49) U/L Alkaline Phosphatase (38-126) U/L Total Protein (6.3-8.2) g/dL Albumin (3.5-5.0) g/dL TSH (0.465-4.680) mIU/L 07/24/20 07/24/20 07/24/20 Range/Units 19:15 19:15 20:24 WBC (3.8-10.6) k/uL RBC 2.57 L (4.30-5.90) m/uL Hgb 8.7 L (13.0-17.5) gm/dL Hct 25.3 L (39.0-53.0) % RDW 16.1 H (11.5-15.5) % Neutrophils # (Manual) (1.3-7.7) k/uL Lymphocytes # (Manual) 0.55 L (1.0-4.8) k/uL Metamyelocytes # (Man) 0.47 H (0) k/uL Myelocytes # (Manual) 0.08 H (0) k/uL Nucleated RBCs (0-0) /100 WBC ABG pH (7.35-7.45) ABG pCO2 (35-45) mmHg ABG pO2 (83-108) mmHg ABG Total CO2 (19-24) mmol/L ABG O2 Saturation (94-97) % Sodium 127 L (137-145) mmol/L Chloride 96 L (98-107) mmol/L BUN 70 H (9-20) mg/dL Creatinine 1.92 H (0.66-1.25) mg/dL Glucose 194 H (74-99) mg/dL POC Glucose (mg/dL) 214 H (75-99) mg/dL Calcium 7.6 L (8.4-10.2) mg/dL Magnesium (1.6-2.3) mg/dL Total Bilirubin 1.6 H (0.2-1.3) mg/dL AST 60 H (17-59) U/L ALT 119 H (4-49) U/L Alkaline Phosphatase (38-126) U/L Total Protein 4.7 L (6.3-8.2) g/dL Albumin 2.7 L (3.5-5.0) g/dL TSH (0.465-4.680) mIU/L 07/25/20 07/25/20 07/25/20 Range/Units 00:26 03:18 04:05 WBC 21.7 H (3.8-10.6) k/uL RBC 2.40 L (4.30-5.90) m/uL Hgb 8.1 L (13.0-17.5) gm/dL Hct 23.5 L (39.0-53.0) % RDW 15.7 H (11.5-15.5) % Neutrophils # (Manual) 19.50 H (1.3-7.7) k/uL Lymphocytes # (Manual) (1.0-4.8) k/uL Metamyelocytes # (Man) 0.22 H (0) k/uL Myelocytes # (Manual) 0.22 H (0) k/uL Nucleated RBCs 3 H (0-0) /100 WBC ABG pH (7.35-7.45) ABG pCO2 (35-45) mmHg ABG pO2 (83-108) mmHg ABG Total CO2 (19-24) mmol/L ABG O2 Saturation (94-97) % Sodium (137-145) mmol/L Chloride (98-107) mmol/L BUN (9-20) mg/dL Creatinine (0.66-1.25) mg/dL Glucose (74-99) mg/dL POC Glucose (mg/dL) 174 H 112 H (75-99) mg/dL Calcium (8.4-10.2) mg/dL Magnesium (1.6-2.3) mg/dL Total Bilirubin (0.2-1.3) mg/dL AST (17-59) U/L ALT (4-49) U/L Alkaline Phosphatase (38-126) U/L Total Protein (6.3-8.2) g/dL Albumin (3.5-5.0) g/dL TSH (0.465-4.680) mIU/L 07/25/20 07/25/20 07/25/20 Range/Units 04:05 04:53 06:28 WBC (3.8-10.6) k/uL RBC (4.30-5.90) m/uL Hgb (13.0-17.5) gm/dL Hct (39.0-53.0) % RDW (11.5-15.5) % Neutrophils # (Manual) (1.3-7.7) k/uL Lymphocytes # (Manual) (1.0-4.8) k/uL Metamyelocytes # (Man) (0) k/uL Myelocytes # (Manual) (0) k/uL Nucleated RBCs (0-0) /100 WBC ABG pH (7.35-7.45) ABG pCO2 (35-45) mmHg ABG pO2 75 L (83-108) mmHg ABG Total CO2 26 H (19-24) mmol/L ABG O2 Saturation (94-97) % Sodium 125 L (137-145) mmol/L Chloride 96 L (98-107) mmol/L BUN 73 H (9-20) mg/dL Creatinine 2.02 H (0.66-1.25) mg/dL Glucose 149 H (74-99) mg/dL POC Glucose (mg/dL) 189 H (75-99) mg/dL Calcium 7.7 L (8.4-10.2) mg/dL Magnesium 2.8 H (1.6-2.3) mg/dL Total Bilirubin 1.6 H (0.2-1.3) mg/dL AST (17-59) U/L ALT 100 H (4-49) U/L Alkaline Phosphatase 30 L (38-126) U/L Total Protein 4.4 L (6.3-8.2) g/dL Albumin 2.5 L (3.5-5.0) g/dL TSH (0.465-4.680) mIU/L Microbiology - Last 24 Hours (Table) 07/24/20 19:03 Gram Stain - Preliminary Sputum Sputum Culture - Preliminary Assessment and Plan Plan: 1 Symptomatic coronary artery disease, status post two-vessel coronary artery bypass grafting with PABLO to the LAD, SVG to the PDA, postoperative day #7 2 Postoperative atrial fibrillation with rapid ventricular response requiring amiodarone and Metoprolol and he is currently off anticagulation due to the surgical intervention as mentioned above, and the patient continues to be in atrial fibrillation, the patient is currently on amiodarone 0.5 mg per minute continuous infusion. 3 acute ischemic small bowel, pneumatosis the patient is fourth. Laparotomy and small bowel resection. The patient is postop day #1. 4 acute hypoxic respiratory failure following bowel surgery. The patient was kept on mechanical ventilator since yesterday. Chest x-ray was noted and the patient is a small to moderate-sized right-sided pleural effusion. Blood gases was noted. 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 9 Acute on chronic kidney disease stage III at baseline, creatinine is up to 2.02 10 Diabetes mellitus type 2 11 Postoperative acute blood loss anemia, expected outcome of open heart surgeryhemoglobin is at 8.1 12 History of hypertension 13 History of hyperlipidemia 14 Pneumoperitoneum, unexpected suspect secondary to mediastinal chest tubes, the patient continues to have some mild abdominal distention 15 leukocytosis which is expected reactive leukocytosis Plan: Continue lactated Ringer at the rate of 75 mL an hour Use Varun-Synephrine no pressors Chest x-ray and labs reviewed Continue vent support and wean down the Fio2 Sedation holiday this morning and check weaning parameters Continue IV Zosyn Sadation holiday and check weaning parameters Continue bronchodilators Hold anticoagulation with Eliquis for now Eliquis Lovenox 40 mg subcu for DVT prophylaxis as long as surgery is agreeable to that. We will continue to follow and make further recommendations based on his clinical status CC evaluation more than 30 min Time with Patient: Greater than 30
[2020-07-25] MEDS: AMIODARONE 360 MG in DEXTROSE 5% IN WATER 200 ML IV SCH ×6 (07:18→19:24)
[2020-07-25] MEDS ORDERED: CALCIUM GLUCONATE 2 GM in SODIUM CHLORIDE 0.9% 100 ML IVPB ONE (07:19)
[2020-07-25] MEDS ORDERED: ALBUMIN HUMAN 5% 250 ML in EMPTY BAG 1 BAG IVPB STA (07:19)
[2020-07-25] MEDS: HYDROmorphone 0.5 MG/0.5 ML SYRINGE IVP PRN ×2 (07:44→13:24)
[2020-07-25] MEDS: BUDESONIDE 1 MG/2 ML NEBU INHALATION SCH ×2 (08:10→19:56)
[2020-07-25] MEDS: IPRATROPIUM-ALBUTEROL 3 ML NEB INHALATION SCH ×4 (08:10→19:56)
[2020-07-25] MEDS: FORMOTEROL FUMARATE 20 MCG/2 ML NEBU INHALATION SCH ×2 (08:10→19:56)
[2020-07-25] MEDS ORDERED: ALBUMIN HUMAN 5% 250 ML in EMPTY BAG 1 BAG IVPB ONE (08:37)
[2020-07-25] MEDS: ASPIRIN 81 MG PO SCH (09:17)
[2020-07-25] MEDS: HEPARIN SODIUM,PORCINE 5,000 UNIT/ML 1 ML VIAL SQ SCH ×3 (09:17→23:08)
[2020-07-25] MEDS: PANTOPRAZOLE 40 MG/10 ML VIAL IVP SCH ×2 (09:18→20:16)
[2020-07-25] MEDS: CHLORHEXIDINE GLUCONATE 15 ML CUP MUCOUS MEM SCH ×2 (09:18→20:16)
[2020-07-25] MEDS: METOPROLOL TARTRATE 12.5 MG TAB NG-TUBE SCH ×2 (09:18→20:16)
[2020-07-25] MEDS: LEVOTHYROXINE IVP 100 MCG/5 ML VIAL IV SCH (09:18)
--- NOTE | 2020-07-25 09:22 | PN ---
PROGRESS NOTE Mr. Tinoco developed some abdominal pain and distention yesterday. CAT scan revealed a gangrenous bowel and free air. He underwent emergency surgery yesterday, had bowel resection, there was gangrenous bowel. He is now on a ventilator, intubated. He remains in atrial fibrillation, rate control is fairly decent. He is on IV amiodarone. This patient is also on some Varun-Synephrine for blood pressure support. However, he is holding his own, but prognosis remains guarded. S1-S2 heard normally with irregular rhythm, short systolic murmur. Lungs revealed ventilator-assisted breaths sounds, rest of physical exam unchanged. Urine output is fair. Prognosis remains a poor. We will resume Eliquis only when okayed by General Surgery because of recent operation. Prognosis remains guarded. MMODL / IJN: [id number] /
--- NOTE | 2020-07-25 09:52 | P.PN ---
Subjective Progress Note Date: 07/25/20 Principal diagnosis: Symptomatic triple-vessel coronary artery disease, mild left ventricular dysfunction. Previuos medical history of stenting to his right coronary artery in 2002, hypertension, hyperlipidemia, hypothyroid status post partial thyroidectomy, previous tobacco dependence quit smoking 20 years ago, moderate chronic obstructive pulmonary disease with preoperative FEV1 of 56% of predicted value, bullous emphysema, remote history of pneumonia, type 2 diabetes mellitus with a preoperative hemoglobin A1c of 5.2%, chronic kidney disease stage III with a baseline creatinine of 1.4-1.5, family history of premature coronary artery disease with brother having had CABG at less than 50 years old. POD #7 double coronary artery bypass grafting using the left internal mammary artery to left anterior descending coronary artery, reverse greater saphenous vein graft from the aorta to the posterior descending coronary artery. Exclusion of the left atrial appendage using a 35 mm Atriclip, endoscopic harvesting of the right greater saphenous vein from the groin to above the ankle level, graft flow measurement using the [employer] system, intraoperative transesophageal echocardiogram and epi-aortic scanning. Postoperative acute blood loss anemia, expected outcome from hemodilution and cardiopulmonary bypass. Postoperative paroxysmal atrial fibrillation, unexpected but common outcome after open heart surgery. Pneumoperitoneum, unexpected Acute on chronic kidney disease secondary to ATN Pneumatosis of the small bowel POD #1 small bowel resection Patient's currently laying in the intensive care unit sedated on mechanical ventilation. Yesterday afternoon he developed significant abdominal distention and severe abdominal pain. Diagnostics indicated small bile pneumatosis and air in the portal system. He was taken emergently for exploratory laparotomy by Dr. Dempsey and was found to have evidence of ischemia and pneumatosis of the small bowel, small area of bowel was resected. The patient was returned to the intensive care unit on low-dose christy-and IV Zosyn. This morning he remains on low-dose christy-, he sedated with propofol. NG tube in place to low intermittent suction. Abdomen is soft, less tympany noted with percussion. Objective - Vital Signs Vital signs: Vital Signs Temp 98.5 F 07/25/20 08:00 Pulse 110 H 07/25/20 08:30 Resp 15 07/25/20 08:30 BP 90/52 07/25/20 08:30 Pulse Ox 97 07/25/20 08:30 Intake & Output 07/24/20 07/25/2007/25/20 18:59 06:59 18:59 Intake Total 1240 1800 600 Output Total 2993 405 45 Balance -1753 1395 555 Weight 105.6 kg Intake: IV 1000 1800 400 Albumin Human 5% 250 ml 250 In Empty Bag 1 bag @ 250 mls/hr IVPB ONCE STA Rx#: [id number] Lactated Ringers 1,000 ml 700 150 @ 125 mls/hr IV .Q8H WADE Rx#:[id number] Lactated Ringers 1,000 ml 1000 @ 999 mls/hr IV .Q1H1M WADE Rx#:[id number] Piperacillin-Tazobactam 3 100 .375 gm In Sodium Chloride 0.9% 100 ml @ 25 mls/hr IVPB Q8HR WADE Rx# :[id number] Intake, IV Titration 200 Amount Amiodarone 360 mg In 200 Dextrose 5% in Water 200 ml @ 0.5 MG/MIN 16.667 mls/hr IV .Q12H WADE Rx#: [id number] Oral 240 Output: Gastric Drainage 250 Urine 1800 405 45 Straight 1000 Post Void Residual 918 Estimated Blood Loss 25 Other: Voiding Method Toilet Indwelling Catheter Urinal # Voids 0 ABP, PAP, CO, CI - Last Documented Arterial Blood Pressure 90/50 Pulmonary Artery Pressure 33/14 Cardiac Output 6.7 Cardiac Index 3.1 - Constitutional General appearance: Present: no acute distress, obese - Respiratory Details: Lungs sounds diminished bilaterally in the bases. Respirations even, non- labored on mechanical ventilation. Currently current settings FiO2 50%, tidal volume 600, respiratory rate 14, PEEP 5. ABGs this morning on those settings 7.45/35/75/24/96%/0.4. 7.5 ET tube present, 23 at the lip - Cardiovascular Details: S1, S2 present. Irregular rate and rhythm, uncontrolled atrial fibrillation on telemetry. Sternum stable. Palpable peripheral pulses bilaterally. Generalized trace generalized edema present. Heart hugger in place with patient demonstrating appropriate use. Antiembolism stockings, SCDs present. Right internal jugular triple-lumen central line, right femoral arterial line present. - Gastrointestinal Gastrointestinal Comment(s): Abdomen soft, nontender, slightly distended. No bowel sounds present currently. NG tube present to low intermittent suction with small amount brownish green drainage - Genitourinary Genitourinary Comment(s): Villafana catheter present draining clear, yellow urine. Output 20-40 mL/h overnight, 2200 mL in the last 24 hours - Integumentary Integumentary Comment(s): Skin is warm and dry with evidence of good perfusion. Anterior chest incision well approximated and covered with dry intact dressing. Right lower extremity EVH site well approximated. Mid abdominal incision well approximated and covered with dry intact dressing - Psychiatric Psychiatric Comment(s): Currently sedated on mechanical ventilation - Allied health notes Allied health notes reviewed: nursing - Labs CBC & Chem 7: 07/25/20 04:05 07/25/20 04:05 Labs: Abnormal Lab Results - Last 24 Hours (Table) 07/24/20 07/24/20 07/24/20 Range/Units 04:07 11:28 16:06 WBC (3.8-10.6) k/uL RBC (4.30-5.90) m/uL Hgb (13.0-17.5) gm/dL Hct (39.0-53.0) % RDW (11.5-15.5) % Neutrophils # (Manual) (1.3-7.7) k/uL Lymphocytes # (Manual) (1.0-4.8) k/uL Metamyelocytes # (Man) (0) k/uL Myelocytes # (Manual) (0) k/uL Nucleated RBCs (0-0) /100 WBC ABG pH (7.35-7.45) ABG pCO2 (35-45) mmHg ABG pO2 (83-108) mmHg ABG Total CO2 (19-24) mmol/L ABG O2 Saturation (94-97) % Sodium (137-145) mmol/L Chloride (98-107) mmol/L BUN (9-20) mg/dL Creatinine (0.66-1.25) mg/dL Glucose (74-99) mg/dL POC Glucose (mg/dL) 176 H 132 H (75-99) mg/dL Calcium (8.4-10.2) mg/dL Magnesium (1.6-2.3) mg/dL Total Bilirubin (0.2-1.3) mg/dL AST (17-59) U/L ALT (4-49) U/L Alkaline Phosphatase (38-126) U/L Total Protein (6.3-8.2) g/dL Albumin (3.5-5.0) g/dL TSH 0.310 L (0.465-4.680) mIU/L 07/24/20 07/24/20 07/24/20 Range/Units 16:56 18:32 19:15 WBC (3.8-10.6) k/uL RBC 2.57 L (4.30-5.90) m/uL Hgb 8.7 L (13.0-17.5) gm/dL Hct 25.3 L (39.0-53.0) % RDW 16.1 H (11.5-15.5) % Neutrophils # (Manual) (1.3-7.7) k/uL Lymphocytes # (Manual) 0.55 L (1.0-4.8) k/uL Metamyelocytes # (Man) 0.47 H (0) k/uL Myelocytes # (Manual) 0.08 H (0) k/uL Nucleated RBCs (0-0) /100 WBC ABG pH 7.31 L (7.35-7.45) ABG pCO2 47 H (35-45) mmHg ABG pO2 318 H (83-108) mmHg ABG Total CO2 25 H (19-24) mmol/L ABG O2 Saturation 100.0 H (94-97) % Sodium 136 L (137-145) mmol/L Chloride (98-107) mmol/L BUN (9-20) mg/dL Creatinine (0.66-1.25) mg/dL Glucose (74-99) mg/dL POC Glucose (mg/dL) (75-99) mg/dL Calcium (8.4-10.2) mg/dL Magnesium (1.6-2.3) mg/dL Total Bilirubin (0.2-1.3) mg/dL AST (17-59) U/L ALT (4-49) U/L Alkaline Phosphatase (38-126) U/L Total Protein (6.3-8.2) g/dL Albumin (3.5-5.0) g/dL TSH (0.465-4.680) mIU/L 07/24/20 07/24/20 07/25/20 Range/Units 19:15 20:24 00:26 WBC (3.8-10.6) k/uL RBC (4.30-5.90) m/uL Hgb (13.0-17.5) gm/dL Hct (39.0-53.0) % RDW (11.5-15.5) % Neutrophils # (Manual) (1.3-7.7) k/uL Lymphocytes # (Manual) (1.0-4.8) k/uL Metamyelocytes # (Man) (0) k/uL Myelocytes # (Manual) (0) k/uL Nucleated RBCs (0-0) /100 WBC ABG pH (7.35-7.45) ABG pCO2 (35-45) mmHg ABG pO2 (83-108) mmHg ABG Total CO2 (19-24) mmol/L ABG O2 Saturation (94-97) % Sodium 127 L (137-145) mmol/L Chloride 96 L (98-107) mmol/L BUN 70 H (9-20) mg/dL Creatinine 1.92 H (0.66-1.25) mg/dL Glucose 194 H (74-99) mg/dL POC Glucose (mg/dL) 214 H 174 H (75-99) mg/dL Calcium 7.6 L (8.4-10.2) mg/dL Magnesium (1.6-2.3) mg/dL Total Bilirubin 1.6 H (0.2-1.3) mg/dL AST 60 H (17-59) U/L ALT 119 H (4-49) U/L Alkaline Phosphatase (38-126) U/L Total Protein 4.7 L (6.3-8.2) g/dL Albumin 2.7 L (3.5-5.0) g/dL TSH (0.465-4.680) mIU/L 07/25/20 07/25/20 07/25/20 Range/Units 03:18 04:05 04:05 WBC 21.7 H (3.8-10.6) k/uL RBC 2.40 L (4.30-5.90) m/uL Hgb 8.1 L (13.0-17.5) gm/dL Hct 23.5 L (39.0-53.0) % RDW 15.7 H (11.5-15.5) % Neutrophils # (Manual) 19.50 H (1.3-7.7) k/uL Lymphocytes # (Manual) (1.0-4.8) k/uL Metamyelocytes # (Man) 0.22 H (0) k/uL Myelocytes # (Manual) 0.22 H (0) k/uL Nucleated RBCs 3 H (0-0) /100 WBC ABG pH (7.35-7.45) ABG pCO2 (35-45) mmHg ABG pO2 (83-108) mmHg ABG Total CO2 (19-24) mmol/L ABG O2 Saturation (94-97) % Sodium 125 L (137-145) mmol/L Chloride 96 L (98-107) mmol/L BUN 73 H (9-20) mg/dL Creatinine 2.02 H (0.66-1.25) mg/dL Glucose 149 H (74-99) mg/dL POC Glucose (mg/dL) 112 H (75-99) mg/dL Calcium 7.7 L (8.4-10.2) mg/dL Magnesium 2.8 H (1.6-2.3) mg/dL Total Bilirubin 1.6 H (0.2-1.3) mg/dL AST (17-59) U/L ALT 100 H (4-49) U/L Alkaline Phosphatase 30 L (38-126) U/L Total Protein 4.4 L (6.3-8.2) g/dL Albumin 2.5 L (3.5-5.0) g/dL TSH (0.465-4.680) mIU/L 07/25/20 07/25/20 Range/Units 04:53 06:28 WBC (3.8-10.6) k/uL RBC (4.30-5.90) m/uL Hgb (13.0-17.5) gm/dL Hct (39.0-53.0) % RDW (11.5-15.5) % Neutrophils # (Manual) (1.3-7.7) k/uL Lymphocytes # (Manual) (1.0-4.8) k/uL Metamyelocytes # (Man) (0) k/uL Myelocytes # (Manual) (0) k/uL Nucleated RBCs (0-0) /100 WBC ABG pH (7.35-7.45) ABG pCO2 (35-45) mmHg ABG pO2 75 L (83-108) mmHg ABG Total CO2 26 H (19-24) mmol/L ABG O2 Saturation (94-97) % Sodium (137-145) mmol/L Chloride (98-107) mmol/L BUN (9-20) mg/dL Creatinine (0.66-1.25) mg/dL Glucose (74-99) mg/dL POC Glucose (mg/dL) 189 H (75-99) mg/dL Calcium (8.4-10.2) mg/dL Magnesium (1.6-2.3) mg/dL Total Bilirubin (0.2-1.3) mg/dL AST (17-59) U/L ALT (4-49) U/L Alkaline Phosphatase (38-126) U/L Total Protein (6.3-8.2) g/dL Albumin (3.5-5.0) g/dL TSH (0.465-4.680) mIU/L Microbiology - Last 24 Hours (Table) 07/24/20 19:03 Gram Stain - Preliminary Sputum Sputum Culture - Preliminary - Imaging and Cardiology Chest x-ray: report reviewed, image reviewed Assessment and Plan Assessment: 1. Symptomatic triple-vessel coronary artery disease, status post 2 vessel CABG 2. Mild left ventricular dysfunction 3. Previuos history of stenting to his right coronary artery in 2002 4. Hypertension 5. Hyperlipidemia 6. Hypothyroid status post partial thyroidectomy 7. Previous tobacco dependence with bullous emphysema 8. Moderate chronic obstructive pulmonary disease with preoperative FEV1 of 56% of predicted value 9. Remote history of pneumonia 10. Type 2 diabetes mellitus with a preoperative hemoglobin A1c of 5.2% 11. Chronic kidney disease stage III with a baseline creatinine of 1.4-1.5 12. Family history of premature coronary artery disease with brother having had CABG at less than 50 years old 13. Postoperative acute blood loss anemia, expected outcome 14. Postoperative paroxysmal atrial fibrillation, unexpected, status post exclusion of the left atrial appendage 15. Pneumoperitoneum, unexpected 16. Acute on chronic kidney disease with hyponatremia, hyperkalemia 17. Pneumatosis of the small bowel, status post small bowel resection Plan: 1. Continue low dose aspirin. Will restart low-dose beta apolinar 2. Continue IV amiodarone for afib. Will restart anticoagulation when able 3. Ventilator management per language asst. Bronchodilators per pulmonology management. Continue IV Zosyn. Random cortisol drawn as patient has been on IV steroids for several days 4. Will replace calcium, IV albumin given. 5. Will monitor daily labs and chest x-rays. 6. GI/DVT prophylaxis. 7. Pain control with current medication regimen. 8. Insulin management per Dr. Plok 9. Will start TPN. RD consulted for management 10. Nephrology following, appreciate recommendations. Avoid nephrotoxic agents 11. Strict accurate intake and output, daily weight 12. More recommendations to follow based on patient's clinical course. Time with Patient: Greater than 30
[2020-07-25] MEDS ORDERED: FUROSEMIDE 10 MG/ML 4 ML VIAL IV STA (09:55)
--- NOTE | 2020-07-25 09:59 | P.PN ---
Subjective Progress Note Date: 07/25/20 Pt had emergent surgery yesterday with small bowel resection due to pneumatosis and ischemic bowel. Now sedated, vented, on propofol, neosynephrine, LR at 75cc, rec'd 250gm of albumin. Objective - Vital Signs Vital signs: Vital Signs Temp 98.5 F 07/25/20 08:00 Pulse 116 H 07/25/20 09:00 Resp 18 07/25/20 09:00 BP 90/52 07/25/20 08:30 Pulse Ox 97 07/25/20 09:00 Intake & Output 07/24/20 07/25/20 07/25/20 18:59 06:59 18:59 Intake Total 1240 1800 1033.207 Output Total 2993 405 70 Balance -1753 1395 963.207 Weight 105.6 kg Intake: IV 1000 1800 725 Albumin Human 5% 250 ml 500 In Empty Bag 1 bag @ 250 mls/hr IVPB ONCE STA Rx#: [id number] Lactated Ringers 1,000 ml 700 225 @ 125 mls/hr IV .Q8H WADE Rx#:[id number] Lactated Ringers 1,000 ml 1000 @ 999 mls/hr IV .Q1H1M WADE Rx#:[id number] Piperacillin-Tazobactam 3 100 .375 gm In Sodium Chloride 0.9% 100 ml @ 25 mls/hr IVPB Q8HR WADE Rx# :[id number] Intake, IV Titration 308.207 Amount Amiodarone 360 mg In 235.001 Dextrose 5% in Water 200 ml @ 0.5 MG/MIN 16.667 mls/hr IV .Q12H WADE Rx#: [id number] propofoL 1,000 mg In 73.206 Empty Bag 1 bag @ Titrate IV .Q0M WADE Rx#: [id number] Oral 240 Output: Gastric Drainage 250 Urine 1800 405 70 Straight 1000 Post Void Residual 918 Estimated Blood Loss 25 Other: Voiding Method Toilet Indwelling Catheter Urinal # Voids 0 ABP, PAP, CO, CI - Last Documented Arterial Blood Pressure 88/44 Pulmonary Artery Pressure 33/14 Cardiac Output 6.7 Cardiac Index 3.1 - Exam Gen: intubated, sedated HEENT: normocephalic, atraumatic, good hearing acuity, moist mucous membranes Resp: Vented: TV 600, RR 14, PEEP 5, FiO2 50% CVS: good distal perfusion x 4, RRR, no murmurs, clicks, gallops GI: soft, NTTP, ND : no SPT, no CVAT, malagon catheter is present MSK: + pitting edema, no clubbing Neuro: non-focal, no sensory deficits, appropriate tone Psych: cooperative, euthymic mood - Labs CBC & Chem 7: 07/25/20 04:05 07/25/20 04:05 Labs: Abnormal Lab Results - Last 24 Hours (Table) 07/24/20 07/24/20 07/24/20 Range/Units 04:07 11:28 16:06 WBC (3.8-10.6) k/uL RBC (4.30-5.90) m/uL Hgb (13.0-17.5) gm/dL Hct (39.0-53.0) % RDW (11.5-15.5) % Neutrophils # (Manual) (1.3-7.7) k/uL Lymphocytes # (Manual) (1.0-4.8) k/uL Metamyelocytes # (Man) (0) k/uL Myelocytes # (Manual) (0) k/uL Nucleated RBCs (0-0) /100 WBC ABG pH (7.35-7.45) ABG pCO2 (35-45) mmHg ABG pO2 (83-108) mmHg ABG Total CO2 (19-24) mmol/L ABG O2 Saturation (94-97) % Sodium (137-145) mmol/L Chloride (98-107) mmol/L BUN (9-20) mg/dL Creatinine (0.66-1.25) mg/dL Glucose (74-99) mg/dL POC Glucose (mg/dL) 176 H 132 H (75-99) mg/dL Calcium (8.4-10.2) mg/dL Magnesium (1.6-2.3) mg/dL Total Bilirubin (0.2-1.3) mg/dL AST (17-59) U/L ALT (4-49) U/L Alkaline Phosphatase (38-126) U/L Total Protein (6.3-8.2) g/dL Albumin (3.5-5.0) g/dL TSH 0.310 L (0.465-4.680) mIU/L 07/24/20 07/24/20 07/24/20 Range/Units 16:56 18:32 19:15 WBC (3.8-10.6) k/uL RBC 2.57 L (4.30-5.90) m/uL Hgb 8.7 L (13.0-17.5) gm/dL Hct 25.3 L (39.0-53.0) % RDW 16.1 H (11.5-15.5) % Neutrophils # (Manual) (1.3-7.7) k/uL Lymphocytes # (Manual) 0.55 L (1.0-4.8) k/uL Metamyelocytes # (Man) 0.47 H (0) k/uL Myelocytes # (Manual) 0.08 H (0) k/uL Nucleated RBCs (0-0) /100 WBC ABG pH 7.31 L (7.35-7.45) ABG pCO2 47 H (35-45) mmHg ABG pO2 318 H (83-108) mmHg ABG Total CO2 25 H (19-24) mmol/L ABG O2 Saturation 100.0 H (94-97) % Sodium 136 L (137-145) mmol/L Chloride (98-107) mmol/L BUN (9-20) mg/dL Creatinine (0.66-1.25) mg/dL Glucose (74-99) mg/dL POC Glucose (mg/dL) (75-99) mg/dL Calcium (8.4-10.2) mg/dL Magnesium (1.6-2.3) mg/dL Total Bilirubin (0.2-1.3) mg/dL AST (17-59) U/L ALT (4-49) U/L Alkaline Phosphatase (38-126) U/L Total Protein (6.3-8.2) g/dL Albumin (3.5-5.0) g/dL TSH (0.465-4.680) mIU/L 07/24/20 07/24/20 07/25/20 Range/Units 19:15 20:24 00:26 WBC (3.8-10.6) k/uL RBC (4.30-5.90) m/uL Hgb (13.0-17.5) gm/dL Hct (39.0-53.0) % RDW (11.5-15.5) % Neutrophils # (Manual) (1.3-7.7) k/uL Lymphocytes # (Manual) (1.0-4.8) k/uL Metamyelocytes # (Man) (0) k/uL Myelocytes # (Manual) (0) k/uL Nucleated RBCs (0-0) /100 WBC ABG pH (7.35-7.45) ABG pCO2 (35-45) mmHg ABG pO2 (83-108) mmHg ABG Total CO2 (19-24) mmol/L ABG O2 Saturation (94-97) % Sodium 127 L (137-145) mmol/L Chloride 96 L (98-107) mmol/L BUN 70 H (9-20) mg/dL Creatinine 1.92 H (0.66-1.25) mg/dL Glucose 194 H (74-99) mg/dL POC Glucose (mg/dL) 214 H 174 H (75-99) mg/dL Calcium 7.6 L (8.4-10.2) mg/dL Magnesium (1.6-2.3) mg/dL Total Bilirubin 1.6 H (0.2-1.3) mg/dL AST 60 H (17-59) U/L ALT 119 H (4-49) U/L Alkaline Phosphatase (38-126) U/L Total Protein 4.7 L (6.3-8.2) g/dL Albumin 2.7 L (3.5-5.0) g/dL TSH (0.465-4.680) mIU/L 07/25/20 07/25/20 07/25/20 Range/Units 03:18 04:05 04:05 WBC 21.7 H (3.8-10.6) k/uL RBC 2.40 L (4.30-5.90) m/uL Hgb 8.1 L (13.0-17.5) gm/dL Hct 23.5 L (39.0-53.0) % RDW 15.7 H (11.5-15.5) % Neutrophils # (Manual) 19.50 H (1.3-7.7) k/uL Lymphocytes # (Manual) (1.0-4.8) k/uL Metamyelocytes # (Man) 0.22 H (0) k/uL Myelocytes # (Manual) 0.22 H (0) k/uL Nucleated RBCs 3 H (0-0) /100 WBC ABG pH (7.35-7.45) ABG pCO2 (35-45) mmHg ABG pO2 (83-108) mmHg ABG Total CO2 (19-24) mmol/L ABG O2 Saturation (94-97) % Sodium 125 L (137-145) mmol/L Chloride 96 L (98-107) mmol/L BUN 73 H (9-20) mg/dL Creatinine 2.02 H (0.66-1.25) mg/dL Glucose 149 H (74-99) mg/dL POC Glucose (mg/dL) 112 H (75-99) mg/dL Calcium 7.7 L (8.4-10.2) mg/dL Magnesium 2.8 H (1.6-2.3) mg/dL Total Bilirubin 1.6 H (0.2-1.3) mg/dL AST (17-59) U/L ALT 100 H (4-49) U/L Alkaline Phosphatase 30 L (38-126) U/L Total Protein 4.4 L (6.3-8.2) g/dL Albumin 2.5 L (3.5-5.0) g/dL TSH (0.465-4.680) mIU/L 07/25/20 07/25/20 Range/Units 04:53 06:28 WBC (3.8-10.6) k/uL RBC (4.30-5.90) m/uL Hgb (13.0-17.5) gm/dL Hct (39.0-53.0) % RDW (11.5-15.5) % Neutrophils # (Manual) (1.3-7.7) k/uL Lymphocytes # (Manual) (1.0-4.8) k/uL Metamyelocytes # (Man) (0) k/uL Myelocytes # (Manual) (0) k/uL Nucleated RBCs (0-0) /100 WBC ABG pH (7.35-7.45) ABG pCO2 (35-45) mmHg ABG pO2 75 L (83-108) mmHg ABG Total CO2 26 H (19-24) mmol/L ABG O2 Saturation (94-97) % Sodium (137-145) mmol/L Chloride (98-107) mmol/L BUN (9-20) mg/dL Creatinine (0.66-1.25) mg/dL Glucose (74-99) mg/dL POC Glucose (mg/dL) 189 H (75-99) mg/dL Calcium (8.4-10.2) mg/dL Magnesium (1.6-2.3) mg/dL Total Bilirubin (0.2-1.3) mg/dL AST (17-59) U/L ALT (4-49) U/L Alkaline Phosphatase (38-126) U/L Total Protein (6.3-8.2) g/dL Albumin (3.5-5.0) g/dL TSH (0.465-4.680) mIU/L Microbiology - Last 24 Hours (Table) 07/24/20 19:03 Gram Stain - Preliminary Sputum Sputum Culture - Preliminary Assessment and Plan Assessment: 1. CAD s/p CABG with 2v bypass, PABLO to LAD, and SVG to posterior decending coronary artery 2. Paroxysmal Atrial Fibrillation, with RVR 3. 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 Pneumatosis, Ischemic Bowel, s/p small bowel resection 5. Acute Blood Loss Anemia, post-operative, resolved 6. Pneumoperitoneum secondary to chest tubes, resolving 7. CONNOR superimposed on CKD, stage III, worsening 8. Hypertension, essential 9. Hyperlipidemia 10. Type II DM, uncontrolled 11. Hypothyroidism 12. Obesity, BMI 30.5 13. Hyponatremia and Hyperkalemia 80 year old man with history of COPD, CKD III, HTN/HLD/CAD/DM, Obesity presented for symptomatic CAD and underwent 2v CABG with post-operative course complicated by respiratory failure secondary to COPD exacerbation, blood loss anemia, paroxysmal atrial fibrillation with RVR, and metabolic derangements. DM 2 - hold metformin - Inulin subcutaneous with sliding scale insulin coverage, check blood sugars every before meals and at bedtime, Levemir added on 07/21. - Blood sugars currently controlled, follow blood sugars closely - A1C from 06/21/2020 5.2, anticipate discharge home back on metformin which may be able to come off in the near future in the outpatient setting. Small Bowel Ischemia - surgery consult - POD #1 s/p resection - LR @ 75cc/hr, can uptitrate as patient appears dry on 12 A-fib with RVR On amio and eliquis Off cardizem gtt CONNOR on CKD stage III Baseline cr 1.4-1.5 Likely cardiorenal syndrome, patient received contrast earlier in the admission. Try to avoid IV fluids Recheck in am Avoid nephrotoxic meds Nephrology is following Acute hyponatremia Likely sec to renal failure Monitor Nephrology consulted, checking urine and plasma osmolalities as well as urine sodium. Hyperkalemia Kayexalate 15 g, follow K in a.m. Pneumoperitoneum suspect secondary to mediastinal chest tubes -Tube d/melody -Resolved. Constipation On Senokot, MiraLAX Had a bowel movement today Acute blood loss anemia and thrombocytopenia, anticipated outcome of surgery - follow CBC - transfuse as indicated COPD with acute exacerbation - On steroids, we'll wean down today from 60 to 40 mg every 6 hours. - DuoNebs - on spiriva and advair at home Coronary artery disease -Status post coronary artery bypass grafting -Cardiothoracic and cardiology following HTN - meds per CT surgery - follow BP Hypothyroidism status post partial thyroidectomy - synthroid Morbid obesity with BMI 30.5 -Outpatient structured weight loss Chronic: ADDY Jacobs's Thank you for allowing us to participate in the care of this pleasant patient. Do not hesitate to contact us with questions. Someone can be reached from the [facility] hospitalist group all hours of the day at [phone] or via [employer].
--- NOTE | 2020-07-25 10:54 | XR ---
EXAMINATION TYPE: XR chest 1V portable DATE OF EXAM: 07/25/2020 COMPARISON: 07/24/2020 INDICATION: Tube placement TECHNIQUE: Single frontal view of the chest is obtained. FINDINGS: The heart size is normal. The pulmonary vasculature is normal. Bibasilar infiltrates are present in the lower lung valdez. Small effusions are present. Findings are stable from comparison. Endotracheal tube tip is above the mickey. Nasogastric tube transverses the thorax. Right central mike ous catheter tip is in the superior vena cava right atrial junction IMPRESSION: 1. Bibasilar infiltrates and small pleural effusions, stable from comparison
[2020-07-25] MEDS ORDERED: LACTATED RINGERS 1,000 ML IV ONE (11:15)
[2020-07-25 11:59] LABS: Glucose,Whole Blood 169 mg/dL (75-99)
[2020-07-25] MEDS: PHENYLEPHRINE 40 MG in SODIUM CHLORIDE 0.9% 250 ML IV SCH ×2 (12:02→23:09)
--- NOTE | 2020-07-25 12:50 | P.PN ---
Subjective Progress Note Date: 07/25/20 CHIEF COMPLAINT: Status post CABG 2 vessels HISTORY OF PRESENT ILLNESS: Patient seen and examined with Dr. Dempsey. He is in the ICU. He is intubated and sedated. Patient is postop day #1 status post small bowel resection for ischemic small bowel with evidence of pneumatosis. Patient has been hypotensive. He is requiring vasopressor support. Afebrile. WBC 21.7 hemoglobin 8.1 creatinine 2.02 PHYSICAL EXAM: VITAL SIGNS: Reviewed. GENERAL: Well-developed in no acute distress. HEENT: No sclera icterus. Extraocular movements grossly intact. Moist buccal mucosa. Head is atraumatic, normocephalic. ABDOMEN: Distended NEUROLOGIC: Intubated and sedated ASSESSMENT: 1. Ischemic small bowel with evidence of pneumatosis status post small bowel resection 2. Acute hypoxic respiratory failure requiring mechanical ventilation 3. symptomatic triple-vessel coronary artery disease status post 2 vessel coronary bypass grafting surgery 4. History of coronary artery disease with stent placement to the RCA in 2002 5. Hypertension 6. Diabetes mellitus type 2 PLAN: -We'll give a 2 L of LR fluid bolus -Continue IV antibiotics -Continue supportive care -DVT prophylaxis subcu heparin and GI prophylaxis Protonix Physician Batch Operator note has been reviewed by physician. Signing provider agrees with the documented findings, assessment, and plan of care. Objective - Vital Signs Vital signs: Vital Signs Temp 98.5 F 07/25/20 08:00 Pulse 122 H 07/25/20 11:30 Resp 16 07/25/20 11:00 BP 90/52 07/25/20 08:30 Pulse Ox 98 07/25/20 11:00 Intake & Output 07/24/20 07/25/20 07/25/20 18:59 06:59 18:59 Intake Total 1240 1800 3537.207 Output Total 2993 405 115 Balance -1753 1395 3422.207 Weight 105.6 kg Intake: IV 1000 1800 2975 Albumin Human 5% 250 ml 500 In Empty Bag 1 bag @ 250 mls/hr IVPB ONCE STA Rx#: [id number] Lactated Ringers 1,000 ml 700 375 @ 125 mls/hr IV .Q8H WADE Rx#:[id number] Lactated Ringers 1,000 ml 1000 2000 @ 999 mls/hr IV .Q1H1M WADE Rx#:[id number] Piperacillin-Tazobactam 3 100 100 .375 gm In Sodium Chloride 0.9% 100 ml @ 25 mls/hr IVPB Q8HR WADE Rx# :[id number] Intake, IV Titration 562.207 Amount Amiodarone 360 mg In 235.001 Dextrose 5% in Water 200 ml @ 0.5 MG/MIN 16.667 mls/hr IV .Q12H WADE Rx#: [id number] Phenylephrine 40 mg In 254 Sodium Chloride 0.9% 250 ml @ 0.5 MCG/KG/MIN 18. 669 mls/hr IV .[id number] WADE Rx#:[id number] propofoL 1,000 mg In 73.206 Empty Bag 1 bag @ Titrate IV .Q0M WADE Rx#: [id number] Oral 240 Output: Gastric Drainage 250 Urine 1800 405 115 Straight 1000 Post Void Residual 918 Estimated Blood Loss 25 Other: Voiding Method Toilet Indwelling Catheter Indwelling Catheter Urinal # Voids 0 ABP, PAP, CO, CI - Last Documented Arterial Blood Pressure 89/50 Pulmonary Artery Pressure 33/14 Cardiac Output 6.7 Cardiac Index 3.1 - Labs CBC & Chem 7: 07/25/20 04:05 07/25/20 04:05 Labs: Abnormal Lab Results - Last 24 Hours (Table) 07/24/20 07/24/20 07/24/20 Range/Units 16:06 16:56 18:32 WBC (3.8-10.6) k/uL RBC (4.30-5.90) m/uL Hgb (13.0-17.5) gm/dL Hct (39.0-53.0) % RDW (11.5-15.5) % Neutrophils # (Manual) (1.3-7.7) k/uL Lymphocytes # (Manual) (1.0-4.8) k/uL Metamyelocytes # (Man) (0) k/uL Myelocytes # (Manual) (0) k/uL Nucleated RBCs (0-0) /100 WBC ABG pH 7.31 L (7.35-7.45) ABG pCO2 47 H (35-45) mmHg ABG pO2 318 H (83-108) mmHg ABG Total CO2 25 H (19-24) mmol/L ABG O2 Saturation 100.0 H (94-97) % Sodium 136 L (137-145) mmol/L Chloride (98-107) mmol/L BUN (9-20) mg/dL Creatinine (0.66-1.25) mg/dL Glucose (74-99) mg/dL POC Glucose (mg/dL) 132 H (75-99) mg/dL Calcium (8.4-10.2) mg/dL Magnesium (1.6-2.3) mg/dL Total Bilirubin (0.2-1.3) mg/dL AST (17-59) U/L ALT (4-49) U/L Alkaline Phosphatase (38-126) U/L Total Protein (6.3-8.2) g/dL Albumin (3.5-5.0) g/dL 07/24/20 07/24/20 07/24/20 Range/Units 19:15 19:15 20:24 WBC (3.8-10.6) k/uL RBC 2.57 L (4.30-5.90) m/uL Hgb 8.7 L (13.0-17.5) gm/dL Hct 25.3 L (39.0-53.0) % RDW 16.1 H (11.5-15.5) % Neutrophils # (Manual) (1.3-7.7) k/uL Lymphocytes # (Manual) 0.55 L (1.0-4.8) k/uL Metamyelocytes # (Man) 0.47 H (0) k/uL Myelocytes # (Manual) 0.08 H (0) k/uL Nucleated RBCs (0-0) /100 WBC ABG pH (7.35-7.45) ABG pCO2 (35-45) mmHg ABG pO2 (83-108) mmHg ABG Total CO2 (19-24) mmol/L ABG O2 Saturation (94-97) % Sodium 127 L (137-145) mmol/L Chloride 96 L (98-107) mmol/L BUN 70 H (9-20) mg/dL Creatinine 1.92 H (0.66-1.25) mg/dL Glucose 194 H (74-99) mg/dL POC Glucose (mg/dL) 214 H (75-99) mg/dL Calcium 7.6 L (8.4-10.2) mg/dL Magnesium (1.6-2.3) mg/dL Total Bilirubin 1.6 H (0.2-1.3) mg/dL AST 60 H (17-59) U/L ALT 119 H (4-49) U/L Alkaline Phosphatase (38-126) U/L Total Protein 4.7 L (6.3-8.2) g/dL Albumin 2.7 L (3.5-5.0) g/dL 07/25/20 07/25/20 07/25/20 Range/Units 00:26 03:18 04:05 WBC 21.7 H (3.8-10.6) k/uL RBC 2.40 L (4.30-5.90) m/uL Hgb 8.1 L (13.0-17.5) gm/dL Hct 23.5 L (39.0-53.0) % RDW 15.7 H (11.5-15.5) % Neutrophils # (Manual) 19.50 H (1.3-7.7) k/uL Lymphocytes # (Manual) (1.0-4.8) k/uL Metamyelocytes # (Man) 0.22 H (0) k/uL Myelocytes # (Manual) 0.22 H (0) k/uL Nucleated RBCs 3 H (0-0) /100 WBC ABG pH (7.35-7.45) ABG pCO2 (35-45) mmHg ABG pO2 (83-108) mmHg ABG Total CO2 (19-24) mmol/L ABG O2 Saturation (94-97) % Sodium (137-145) mmol/L Chloride (98-107) mmol/L BUN (9-20) mg/dL Creatinine (0.66-1.25) mg/dL Glucose (74-99) mg/dL POC Glucose (mg/dL) 174 H 112 H (75-99) mg/dL Calcium (8.4-10.2) mg/dL Magnesium (1.6-2.3) mg/dL Total Bilirubin (0.2-1.3) mg/dL AST (17-59) U/L ALT (4-49) U/L Alkaline Phosphatase (38-126) U/L Total Protein (6.3-8.2) g/dL Albumin (3.5-5.0) g/dL 07/25/20 07/25/20 07/25/20 Range/Units 04:05 04:53 06:28 WBC (3.8-10.6) k/uL RBC (4.30-5.90) m/uL Hgb (13.0-17.5) gm/dL Hct (39.0-53.0) % RDW (11.5-15.5) % Neutrophils # (Manual) (1.3-7.7) k/uL Lymphocytes # (Manual) (1.0-4.8) k/uL Metamyelocytes # (Man) (0) k/uL Myelocytes # (Manual) (0) k/uL Nucleated RBCs (0-0) /100 WBC ABG pH (7.35-7.45) ABG pCO2 (35-45) mmHg ABG pO2 75 L (83-108) mmHg ABG Total CO2 26 H (19-24) mmol/L ABG O2 Saturation (94-97) % Sodium 125 L (137-145) mmol/L Chloride 96 L (98-107) mmol/L BUN 73 H (9-20) mg/dL Creatinine 2.02 H (0.66-1.25) mg/dL Glucose 149 H (74-99) mg/dL POC Glucose (mg/dL) 189 H (75-99) mg/dL Calcium 7.7 L (8.4-10.2) mg/dL Magnesium 2.8 H (1.6-2.3) mg/dL Total Bilirubin 1.6 H (0.2-1.3) mg/dL AST (17-59) U/L ALT 100 H (4-49) U/L Alkaline Phosphatase 30 L (38-126) U/L Total Protein 4.4 L (6.3-8.2) g/dL Albumin 2.5 L (3.5-5.0) g/dL 07/25/20 Range/Units 11:57 WBC (3.8-10.6) k/uL RBC (4.30-5.90) m/uL Hgb (13.0-17.5) gm/dL Hct (39.0-53.0) % RDW (11.5-15.5) % Neutrophils # (Manual) (1.3-7.7) k/uL Lymphocytes # (Manual) (1.0-4.8) k/uL Metamyelocytes # (Man) (0) k/uL Myelocytes # (Manual) (0) k/uL Nucleated RBCs (0-0) /100 WBC ABG pH (7.35-7.45) ABG pCO2 (35-45) mmHg ABG pO2 (83-108) mmHg ABG Total CO2 (19-24) mmol/L ABG O2 Saturation (94-97) % Sodium (137-145) mmol/L Chloride (98-107) mmol/L BUN (9-20) mg/dL Creatinine (0.66-1.25) mg/dL Glucose (74-99) mg/dL POC Glucose (mg/dL) 169 H (75-99) mg/dL Calcium (8.4-10.2) mg/dL Magnesium (1.6-2.3) mg/dL Total Bilirubin (0.2-1.3) mg/dL AST (17-59) U/L ALT (4-49) U/L Alkaline Phosphatase (38-126) U/L Total Protein (6.3-8.2) g/dL Albumin (3.5-5.0) g/dL Microbiology - Last 24 Hours (Table) 07/24/20 19:03 Gram Stain - Preliminary Sputum Sputum Culture - Preliminary
--- NOTE | 2020-07-25 12:58 | PN ---
PROGRESS NOTE Patient is seen for followup for acute kidney injury and hyponatremia. Yesterday, patient was taken to OR as he was noted to have extensive portal venous air and intramural air in the dilated small bowel with possible gangrenous small bowel. He was taken for surgery yesterday and the patient had a small bowel resection performed. He is currently on the vent. He is maintained on amiodarone drip for atrial fibrillation. Urine output has been about 15-25 mL an hour. Serum creatinine is stable. It is about the same at about 1.9-2 mg/dL. PHYSICAL EXAMINATION: On examination today, blood pressure is 92/48, heart rate 95 per minute, he is afebrile. Examination of the heart S1, S2. Examination of the lungs, bilateral breath sounds are heard. Abdomen is status post surgery. Incision is covered. Examination of the lower extremities shows trace edema. RACK PUSHER exam cannot be performed. Patient is awake, moving all 4 extremities, but he is being sedated. LABS: Show sodium of 125, potassium 5.0, chloride 96, CO2 is 25, BUN 73, creatinine 2.02, hemoglobin 8.1 g/dL. ASSESSMENT: 1. Acute kidney injury, ATN, currently nonoliguric, although urine output is on the lower side. Patient has received fluid boluses. Blood pressure is stable. He is not significantly hypotensive. No nephrotoxic agents on board. He did have urine retention yesterday and a Villafana catheter is currently in place. 2. Hyponatremia which was hypervolemic, improved post Lasix. Serum sodium was up to 136 yesterday. However, serum sodium has worsened again after fluid administration. He is still above 120. I will repeat another sodium this evening. If it drops again, the patient should receive a dose of IV Lasix. We can continue with the saline and add 40 mg IV Lasix x1. 3. Pneumatosis of the bowel, small bowel, status post small bowel resection. 4. Chronic kidney disease stage 3. Previous creatinine about 1.1-1.2 mg/dL secondary to nephrosclerosis. PLAN: Repeat sodium this evening, add IV Lasix if the sodium is worse. The patient is also receiving the amiodarone and D5W, which will worsen his sodium levels. MMODL / IJN: [id number] /
[2020-07-25 13:58] LABS: Ionized Calcium 4.6 mg/dL (4.5-5.3)
[2020-07-25 14:03] LABS: Albumin 2.6 g/dL (3.5-5.0); Calcium 7.6 mg/dL (8.4-10.2); Magnesium 2.7 mg/dL (1.6-2.3); Phosphorus 3.6 mg/dL (2.5-4.5); Potassium 5.4 mmol/L (3.5-5.1); Total Bilirubin 1.8 mg/dL (0.2-1.3); Total Protein 4.4 g/dL (6.3-8.2)
[2020-07-25] MEDS ORDERED: MVI, ADULT NO.4 WITH VIT K 10 ML, TRACE (CONC-1ML/DOSE) 1 ML, SODIUM CHLORIDE 2.5MEQ/ML... IV ONE ×6 (14:45)
[2020-07-25] MEDS: SODIUM CHLORIDE 0.9% 1,000 ML IV SCH (15:29)
[2020-07-25 16:16] LABS: Glucose,Whole Blood 118 mg/dL (75-99)
[2020-07-25 20:07] LABS: Glucose,Whole Blood 257 mg/dL (75-99)
[2020-07-25 20:16] LABS: Glucose,Whole Blood 263 mg/dL (75-99)
[2020-07-25] MEDS: INSULIN DETEMIR (LEVEMIR) 100 UNIT/ML SYR SQ SCH (20:23)
[2020-07-25 21:59] LABS: Glucose,Whole Blood 286 mg/dL (75-99)
[2020-07-25 22:01] LABS: Glucose,Whole Blood 276 mg/dL (75-99)
[2020-07-25] MEDS ORDERED: INSULIN DETEMIR (LEVEMIR) 100 UNIT/ML SYR SQ ONE (22:15)
[2020-07-25 23:03] LABS: Glucose,Whole Blood 271 mg/dL (75-99)
[2020-07-26 03:24] LABS: Glucose,Whole Blood 241 mg/dL (75-99)
[2020-07-26] MEDS: INSULIN ASPART (NovoLOG) 100 UNIT/ML VIAL SQ SCH ×2 (03:40→06:06)
[2020-07-26 03:41] LABS: Glucose,Whole Blood 249 mg/dL (75-99)
[2020-07-26 03:41] LABS: Glucose,Whole Blood 168 mg/dL (75-99)
[2020-07-26 04:56] LABS: Hypochromasia Slight; MCH 34.4 pg (25.0-35.0); MCHC 34.4 g/dL (31.0-37.0); MCV 99.9 fL (80.0-100.0); Macrocytosis Slight; Platelet Count 160 k/uL (150-450); Poikilocytosis Slight; RBC 1.85 m/uL (4.30-5.90); RDW 15.3 % (11.5-15.5); WBC 18.7 k/uL (3.8-10.6)
[2020-07-26 04:57] LABS: Ionized Calcium 4.7 mg/dL (4.5-5.3)
[2020-07-26 04:57] LABS: ABG HCO3 23 mmol/L (21-25); ABG Oxygen Saturation 99.6 % (94-97); ABG PCO2 40 mmHg (35-45); ABG PH 7.37 (7.35-7.45); ABG PO2 112 mmHg (83-108); ABG TCO2 25 mmol/L (19-24)
[2020-07-26] MEDS: SODIUM CHLORIDE 0.9% 1,000 ML IV SCH ×2 (05:09→16:01)
[2020-07-26 05:13] LABS: Albumin 2.4 g/dL (3.5-5.0); Calcium 7.5 mg/dL (8.4-10.2); Magnesium 2.8 mg/dL (1.6-2.3); Phosphorus 4.2 mg/dL (2.5-4.5); Potassium 4.9 mmol/L (3.5-5.1); Total Bilirubin 1.2 mg/dL (0.2-1.3); Total Protein 4.3 g/dL (6.3-8.2)
[2020-07-26 05:43] LABS: HCT 18.5 % (39.0-53.0); HGB 6.4 gm/dL (13.0-17.5)
[2020-07-26 05:53] LABS: Glucose,Whole Blood 220 mg/dL (75-99)
[2020-07-26 06:49] LABS: Anisocytosis (M) Present; Band Neutrophils % 17 %; Basophilic Stippling Present; Lymphocytes # (M) 0.56 k/uL (1.0-4.8); Metamyelocytes # (M) 0.19 k/uL (0); Metamyelocytes % 1 %; Monocytes # (M) 0.19 k/uL (0-1.0); Neutrophils % (M) 80 %; Nucleated Red Blood Cells 0 /100 WBC (0-0); Polychromasia Present; Total Cells Counted 200
--- NOTE | 2020-07-26 07:03 | P.PN ---
Subjective Progress Note Date: 07/26/20 80-year-old male patient postoperative bypass surgery. Postop day number #6. The patient underwent bypass surgery. The patient remains extubated on 3 L of oxygen by nasal cannula. Chest x-ray shows small right-sided pleural effusion. The patient is awake and alert. The patient is using incentive spirometer. The patient is able to sit up on a chair. He is feeling better on a daily basis. The patient is of coronary artery disease and previous stenting of her back in 2002. Patient has hyperlipidemia and hypothyroidism patient has undergone a partial thyroidectomy he had the patient is an ex-smoker. Mother with COPD with an FEV1 of 56% predicted with some bullous changes. The patient has diabetes mellitus type 2 with a preop hemoglobin A1c of 5.2. The patient is, stage III. The postoperative course was complicated by in acute blood loss anemia which is expected outcome of surgery and the patient also developed atrial fibrillation and other expected outcome of surgery. There was also some limited pneumomediastinum secondary to mediastinal tubes. The patient's currently is in normal sinus rhythm. He is using incentive spirometer.he is pulling approximately 500 on the incentive spirometer. No appreciated bronchospasm wheezing on today's evaluation. Chest x-ray shows small bilateral pleural effusion slightly worse on the right. The patient has no chest tubes at this point in time. He remains nature fibrillation with controlled rate. On 07/25, the patient is being seen in the follow-up. The patient is postop day #1 sought 8 cardiac surger2 following coronary artery bypass surgery. Events occurring yesterday were noted. The patient developed worsening abdominal pain and distention and following that the patient had a CAT scan of the abdomen that showed extensive portal venous air and intraluminal air along with dilated small bowel in the mid abdomen. Bowel gangrene an infarction was suspected. The patient also has a mild to moderate-sized right-sided pleural effusion and small pericardial effusion. The patient was taken to the operating room and the patient underwent a exploratory laparotomy for pneumatosis of the small bowel. The patient underwent small bowel resection. The patient was found to have dilated small bowel. The bowel was ischemic approximately 4 inches from the ileocecal valve. Bowel resection was done and following that the patient was kept intubated on mechanical ventilator and the patient was brought back to the ICU. At this point in time, the patient sedated with propofol and the patient currently intubated on a mechanical ventilator. Orogastric and orotracheal tube was placed. The patient also has a right IJ triple-lumen catheter. Patient is currently on no pressors. She had received some Varun-Synephrine and operating room. The patient is currently on AC and a rate of 14 and TV 600 PEEP 5 and FIO2 50%. Propofol at 10 mc/kg/min and the patient has been on LR at 125cc/hr. The patient is on IV zosyn as a broad- spectrum antibiotic coverage.the blood gases from this morning showed a pH of 7.4 with a pCO2 of 35 and pO2 of 74. Chest x-ray showing a right-sided pleural effusion. ET tube is in a good location. Lactated Ringer is down to 75 mL an hour. Urine output is ordered of 20-30 mL. on 07/26/2020, the patient is postop day #2 from his abdominal surgery and postop day #8 from his cardiac surgery. The patientis was resuscitated and the patient overall received a 3 L bolus yesterday and his net fluid balance is positive for liters over the past 24 hours. Hemoglobin is up to 6.4 and the patient will be receiving a unit of packed RBC. We do not think this is related to bleeding and probably this is dilutional. Meanwhile, the patient is sedated with propofol which is running at 35 mcg/kg per minute. The patient is well rested and comfortable. He is an assist-control mode rate of 14 with a total volume of 600 and FiO2 of 50% with a chief of 5. Chest x-ray shows small bilate ral pleural effusion slightly worse on the right. The blood. Shows pH of 7.37 with a pCO2 of 40 and pO2 of 112 and the necessity ventilator changes were done. Abdominal wound is dry clean and intact. No bowel sounds. Surgical wound site over the chest that is dry clean and intact. NG tube is in place. The patient is receiving TPN for nutritional support. IV fluids in the form of normal saline at the rate of 75 mL an hour. Urine output is in order of 30-40 mL an hour. No other significant issues otherwise. No pressors. A sedation holiday will be given and his underlying mental status will be assessed. Weaning parameters will be also assessed.he is currently off Varun-Synephrine. This was discontinued yesterday. Objective - Vital Signs Vital signs: Vital Signs Temp 96.9 F L 07/26/20 04:00 Pulse 75 07/26/20 06:00 Resp 26 H 07/26/20 06:00 BP 104/57 07/26/20 05:00 Pulse Ox 97 07/26/20 06:00 Intake & Output 07/25/20 07/25/20 07/26/20 06:59 18:59 06:59 Intake Total 1800 4403.277 1710.740 Output Total 405 620 930 Balance 1395 3783.277 780.740 Weight 105.6 kg 109 kg Intake: IV 1800 3375 1155 Albumin Human 5% 250 ml 500 In Empty Bag 1 bag @ 250 mls/hr IVPB ONCE [facility] Rx#: [id number] Lactated Ringers 1,000 ml 700 675 @ 125 mls/hr IV .Q8H [facility] Rx#:[id number] Lactated Ringers 1,000 ml 1000 2000 @ 999 mls/hr IV .Q1H1M [facility] Rx#:[id number] Mvi, Adult No.4 with Vit 330 K 10 ml Trace (Conc-1Ml/ Dose) 1 ml Sodium Chloride 2.5MEQ/ml Vial 15 meq Calcium Gluconate 1 gm Sodium Phosphate 15 mmol In Amino Acid 5%- D15w 1,000 ml @ 60 mls/hr IV .BY DURATION [facility] Rx#: [id number] Piperacillin-Tazobactam 3 100 200 .375 gm In Sodium Chloride 0.9% 100 ml @ 25 mls/hr IVPB Q8HR [facility] Rx# :[id number] Sodium Chloride 0.9% 1, 825 000 ml @ 75 mls/hr IV . [id number] [facility] Rx#:[id number] Intake, IV Titration 1028.277 555.740 Amount Amiodarone 360 mg In 235.001 166.67 Dextrose 5% in Water 200 ml @ 0.5 MG/MIN 16.667 mls/hr IV .Q12H [facility] Rx#: [id number] Phenylephrine 40 mg In 410.196 217.660 Sodium Chloride 0.9% 250 ml @ 0.5 MCG/KG/MIN 18. 669 mls/hr IV .[id number] [facility] Rx#:[id number] Sodium Chloride 0.9% 1, 225 75 000 ml @ 75 mls/hr IV . [id number] [facility] Rx#:[id number] propofoL 1,000 mg In 158.080 96.41 Empty Bag 1 bag @ Titrate IV .Q0M [facility] Rx#: [id number] Output: Urine 405 620 930 Other: Voiding Method Indwelling Catheter Indwelling Catheter Indwelling Catheter ABP, PAP, CO, CI - Last Documented Arterial Blood Pressure 107/48 Pulmonary Artery Pressure 33/14 Cardiac Output 6.7 Cardiac Index 3.1 - Exam Gen. appearance the patient is intubated, comfortable mechanical ventilator. Orogastric and orotracheal place. Head exam was generally normal. There was no scleral icterus or corneal arcus. Mucous membranes were moist. Neck was supple and without jugular venous distension, thyromegaly, or carotid bruits. Carotids were easily palpable bilaterally. There was no adenopathy. the patient has orogastric tube and orotracheal tube and the patient has a right IJ triple-lumen catheter Lungs sounds are diminished in the right lung base. Breath sounds are otherwise within normal limits. Sternum stable clean and intact. Cardiac exam revealed the PMI to be normally situated and sized. The rhythm was regular and no extrasystoles were noted during several minutes of auscultation. The first and second heart sounds were normal and physiologic splitting of the second heart sound was noted. There were no murmurs, rubs, clicks, or gallops. Abdomen is distended. Bowel sounds are hypoactive and nearly absent. Surgical wound site is dry. Overall. No direct tenderness. No rebound tenderness. No guarding. Normoactive. Examination of the extremities revealed easily palpable radial, femoral and pedal pulses. There was no cyanosis, clubbing or edema. Examination of the skin revealed no evidence of significant rashes, suspicious appearing nevi or other concerning lesions. Neurologically, the patient is awake and alert and the patient does not have any focal neurological deficit. Cranial nerves are essentially intact. - Labs CBC & Chem 7: 07/26/20 04:30 07/26/20 04:30 Labs: Abnormal Lab Results - Last 24 Hours (Table) 07/24/20 07/25/20 07/25/20 Range/Units 16:56 11:57 13:31 WBC (3.8-10.6) k/uL RBC (4.30-5.90) m/uL Hgb (13.0-17.5) gm/dL Hct (39.0-53.0) % Neutrophils # (Manual) (1.3-7.7) k/uL Lymphocytes # (Manual) (1.0-4.8) k/uL Metamyelocytes # (Man) (0) k/uL ABG pO2 (83-108) mmHg ABG Total CO2 (19-24) mmol/L ABG O2 Saturation (94-97) % Sodium 127 L (137-145) mmol/L Potassium 5.4 H (3.5-5.1) mmol/L Chloride 96 L (98-107) mmol/L BUN 73 H (9-20) mg/dL Creatinine 2.27 H (0.66-1.25) mg/dL Glucose 166 H (74-99) mg/dL POC Glucose (mg/dL) 169 H (75-99) mg/dL Calcium 7.6 L (8.4-10.2) mg/dL Magnesium 2.7 H (1.6-2.3) mg/dL Total Bilirubin 1.8 H (0.2-1.3) mg/dL ALT 79 H (4-49) U/L Alkaline Phosphatase 26 L (38-126) U/L Total Protein 4.4 L (6.3-8.2) g/dL Albumin 2.6 L (3.5-5.0) g/dL Crossmatch See Detail 07/25/20 07/25/20 07/25/20 Range/Units 16:14 18:15 20:04 WBC (3.8-10.6) k/uL RBC (4.30-5.90) m/uL Hgb (13.0-17.5) gm/dL Hct (39.0-53.0) % Neutrophils # (Manual) (1.3-7.7) k/uL Lymphocytes # (Manual) (1.0-4.8) k/uL Metamyelocytes # (Man) (0) k/uL ABG pO2 (83-108) mmHg ABG Total CO2 (19-24) mmol/L ABG O2 Saturation (94-97) % Sodium 126 L (137-145) mmol/L Potassium (3.5-5.1) mmol/L Chloride (98-107) mmol/L BUN (9-20) mg/dL Creatinine (0.66-1.25) mg/dL Glucose (74-99) mg/dL POC Glucose (mg/dL) 118 H 257 H (75-99) mg/dL Calcium (8.4-10.2) mg/dL Magnesium (1.6-2.3) mg/dL Total Bilirubin (0.2-1.3) mg/dL ALT (4-49) U/L Alkaline Phosphatase (38-126) U/L Total Protein (6.3-8.2) g/dL Albumin (3.5-5.0) g/dL Crossmatch 07/25/20 07/25/20 07/25/20 Range/Units 20:15 21:58 22:00 WBC (3.8-10.6) k/uL RBC (4.30-5.90) m/uL Hgb (13.0-17.5) gm/dL Hct (39.0-53.0) % Neutrophils # (Manual) (1.3-7.7) k/uL Lymphocytes # (Manual) (1.0-4.8) k/uL Metamyelocytes # (Man) (0) k/uL ABG pO2 (83-108) mmHg ABG Total CO2 (19-24) mmol/L ABG O2 Saturation (94-97) % Sodium (137-145) mmol/L Potassium (3.5-5.1) mmol/L Chloride (98-107) mmol/L BUN (9-20) mg/dL Creatinine (0.66-1.25) mg/dL Glucose (74-99) mg/dL POC Glucose (mg/dL) 263 H 286 H 276 H (75-99) mg/dL Calcium (8.4-10.2) mg/dL Magnesium (1.6-2.3) mg/dL Total Bilirubin (0.2-1.3) mg/dL ALT (4-49) U/L Alkaline Phosphatase (38-126) U/L Total Protein (6.3-8.2) g/dL Albumin (3.5-5.0) g/dL Crossmatch 07/25/20 07/26/20 07/26/20 Range/Units 23:02 03:23 03:36 WBC (3.8-10.6) k/uL RBC (4.30-5.90) m/uL Hgb (13.0-17.5) gm/dL Hct (39.0-53.0) % Neutrophils # (Manual) (1.3-7.7) k/uL Lymphocytes # (Manual) (1.0-4.8) k/uL Metamyelocytes # (Man) (0) k/uL ABG pO2 (83-108) mmHg ABG Total CO2 (19-24) mmol/L ABG O2 Saturation (94-97) % Sodium (137-145) mmol/L Potassium (3.5-5.1) mmol/L Chloride (98-107) mmol/L BUN (9-20) mg/dL Creatinine (0.66-1.25) mg/dL Glucose (74-99) mg/dL POC Glucose (mg/dL) 271 H 241 H 168 H (75-99) mg/dL Calcium (8.4-10.2) mg/dL Magnesium (1.6-2.3) mg/dL Total Bilirubin (0.2-1.3) mg/dL ALT (4-49) U/L Alkaline Phosphatase (38-126) U/L Total Protein (6.3-8.2) g/dL Albumin (3.5-5.0) g/dL Crossmatch 07/26/20 07/26/20 07/26/20 Range/Units 03:40 04:30 04:30 WBC 18.7 H (3.8-10.6) k/uL RBC 1.85 L (4.30-5.90) m/uL Hgb 6.4 L* D (13.0-17.5) gm/dL Hct 18.5 L* (39.0-53.0) % Neutrophils # (Manual) 18.10 H (1.3-7.7) k/uL Lymphocytes # (Manual) 0.56 L (1.0-4.8) k/uL Metamyelocytes # (Man) 0.19 H (0) k/uL ABG pO2 (83-108) mmHg ABG Total CO2 (19-24) mmol/L ABG O2 Saturation (94-97) % Sodium 127 L (137-145) mmol/L Potassium (3.5-5.1) mmol/L Chloride (98-107) mmol/L BUN 76 H (9-20) mg/dL Creatinine 2.37 H (0.66-1.25) mg/dL Glucose 212 H (74-99) mg/dL POC Glucose (mg/dL) 249 H (75-99) mg/dL Calcium 7.5 L (8.4-10.2) mg/dL Magnesium 2.8 H (1.6-2.3) mg/dL Total Bilirubin (0.2-1.3) mg/dL ALT 65 H (4-49) U/L Alkaline Phosphatase 34 L (38-126) U/L Total Protein 4.3 L (6.3-8.2) g/dL Albumin 2.4 L (3.5-5.0) g/dL Crossmatch 07/26/20 07/26/20 Range/Units 04:49 05:51 WBC (3.8-10.6) k/uL RBC (4.30-5.90) m/uL Hgb (13.0-17.5) gm/dL Hct (39.0-53.0) % Neutrophils # (Manual) (1.3-7.7) k/uL Lymphocytes # (Manual) (1.0-4.8) k/uL Metamyelocytes # (Man) (0) k/uL ABG pO2 112 H (83-108) mmHg ABG Total CO2 25 H (19-24) mmol/L ABG O2 Saturation 99.6 H (94-97) % Sodium (137-145) mmol/L Potassium (3.5-5.1) mmol/L Chloride (98-107) mmol/L BUN (9-20) mg/dL Creatinine (0.66-1.25) mg/dL Glucose (74-99) mg/dL POC Glucose (mg/dL) 220 H (75-99) mg/dL Calcium (8.4-10.2) mg/dL Magnesium (1.6-2.3) mg/dL Total Bilirubin (0.2-1.3) mg/dL ALT (4-49) U/L Alkaline Phosphatase (38-126) U/L Total Protein (6.3-8.2) g/dL Albumin (3.5-5.0) g/dL Crossmatch Assessment and Plan Plan: 1 Symptomatic coronary artery disease, status post two-vessel coronary artery bypass grafting with PABLO to the LAD, SVG to the PDA, postoperative day #8 2 Postoperative atrial fibrillation with rapid ventricular response requiring amiodarone and Metoprolol and he is currently off anticagulation due to the surgical intervention as mentioned above, and the patient continues to be in atrial fibrillation, the patient is currently on amiodarone 0.5 mg per minute continuous infusion.the patient remains on no anticoagulation for now. 3 acute ischemic small bowel, pneumatosis the patient is fourth. Laparotomy and small bowel resection. The patient is postop day #2, the patient is receiving TPN for nutritional support. 4 acute hypoxic respiratory failure following bowel surgery. The patient was kept on mechanical ventilator since yesterday. Chest x-ray was noted and the patient is a small to moderate-sized right-sided pleural effusion. Blood gases was noted. 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 9 Acute on chronic kidney disease stage III at baseline, creatinine is up to 2.02 10 Diabetes mellitus type 2 11 Postoperative acute blood loss anemia, expected outcome of open heart surgeryhemoglobin is at 6.4, likely dilutional and the patient will receive a unit of packed RBC 12 History of hypertension 13 History of hyperlipidemia 14 Pneumoperitoneum, unexpected suspect secondary to mediastinal chest tubes, the patient continues to have some mild abdominal distention 15 leukocytosis which is expected reactive leukocytosis, white cell count is at increased Plan: Continue NSS at the rate of 75 mL an hour Varun-Synephrine has been discontinued Chest x-ray and labs reviewed Continue vent support and wean down the Fio2 to 40% tidal volume to500. Sedation holiday this morning and check weaning parameters Continue IV Zosyn Sadation holiday and check weaning parameters Continue bronchodilators Hold anticoagulation with Eliquis for now Eliquis Lovenox 40 mg subcu for DVT prophylaxis as long as surgery is agreeable to that. We will continue to follow and make further recommendations based on his clinical status CC evaluation more than 30 min Time with Patient: Greater than 30
--- NOTE | 2020-07-26 07:41 | XR ---
EXAMINATION TYPE: XR chest 1V portable DATE OF EXAM: 07/26/2020 COMPARISON: Prior chest x-ray 07/25/2020 HISTORY: Tube placement, intubated TECHNIQUE: Single frontal view of the chest is obtained. FINDINGS: Endotracheal tube, orogastric tube, right jugular central venous catheter are again noted and are overlying appropriate positions. There is no pneumothorax. Bibasilar increased attenuation pe rsists. Heart size is stable. Patient is post median sternotomy and atrial appendage clipping placeme nt. There are overlying artifacts. IMPRESSION: Findings are similar to prior exam. May be basilar atelectasis or pneumonia, difficult t o exclude effusion.
[2020-07-26 08:00] LABS: Glucose,Whole Blood 130 mg/dL (75-99)
[2020-07-26 08:01] LABS: Glucose,Whole Blood 136 mg/dL (75-99)
[2020-07-26] MEDS: INSULIN REGULAR 100 UNIT in SODIUM CHLORIDE 0.9% 100 ML IV SCH (08:03)
--- NOTE | 2020-07-26 08:22 | P.PN ---
Subjective Progress Note Date: 07/26/20 Principal diagnosis: Symptomatic triple-vessel coronary artery disease, mild left ventricular dysfunction. Previuos medical history of stenting to his right coronary artery in 2002, hypertension, hyperlipidemia, hypothyroid status post partial thyroidectomy, previous tobacco dependence quit smoking 20 years ago, moderate chronic obstructive pulmonary disease with preoperative FEV1 of 56% of predicted value, bullous emphysema, remote history of pneumonia, type 2 diabetes mellitus with a preoperative hemoglobin A1c of 5.2%, chronic kidney disease stage III with a baseline creatinine of 1.4-1.5, family history of premature coronary artery disease with brother having had CABG at less than 50 years old. POD #8 double coronary artery bypass grafting using the left internal mammary artery to left anterior descending coronary artery, reverse greater saphenous vein graft from the aorta to the posterior descending coronary artery. Exclusion of the left atrial appendage using a 35 mm Atriclip, endoscopic harvesting of the right greater saphenous vein from the groin to above the ankle level, graft flow measurement using the [employer] system, intraoperative transesophageal echocardiogram and epi-aortic scanning. Postoperative acute blood loss anemia, expected outcome from hemodilution and cardiopulmonary bypass. Postoperative paroxysmal atrial fibrillation, unexpected but common outcome after open heart surgery. Pneumoperitoneum, unexpected Acute on chronic kidney disease secondary to ATN Pneumatosis of the small bowel POD #2 small bowel resection Patient's currently laying in the intensive care unit sedated on mechanical ventilation. Converted to sinus rhythm yesterday, remains in sinus rhythm and hemodynamically stable, Varun off since yesterday. Sedated with propofol, wakes up and follows commands. NG tube in place to low intermittent suction with minimal greenish fluid, no bowel sounds yet. Abdomen is soft, less distended, less tympany noted with percussion. Remains on IV amio, zosyn. Received 6 liters fluid yesterday, positive 4.5 liters fluid. Hemaglobin 6.4 this am, likely dilutional but will get 1 unit PRBCs today anyway Objective - Vital Signs Vital signs: Vital Signs Temp 96.9 F L 07/26/20 04:00 Pulse 76 07/26/20 07:00 Resp 23 07/26/20 07:00 BP 104/57 07/26/20 05:00 Pulse Ox 99 07/26/20 07:00 Intake & Output 07/25/20 07/26/20 07/26/20 18:59 06:59 18:59 Intake Total 4403.277 1710.740 105 Output Total 620 930 50 Balance 3783.277 780.740 55 Weight 105.6 kg 109 kg Intake: IV 3375 1155 105 Albumin Human 5% 250 ml 500 In Empty Bag 1 bag @ 250 mls/hr IVPB ONCE [facility] Rx#: [id number] Lactated Ringers 1,000 ml 675 @ 125 mls/hr IV .Q8H [facility] Rx#:[id number] Lactated Ringers 1,000 ml 2000 @ 999 mls/hr IV .Q1H1M [facility] Rx#:[id number] Mvi, Adult No.4 with Vit 330 30 K 10 ml Trace (Conc-1Ml/ Dose) 1 ml Sodium Chloride 2.5MEQ/ml Vial 15 meq Calcium Gluconate 1 gm Sodium Phosphate 15 mmol In Amino Acid 5%- D15w 1,000 ml @ 60 mls/hr IV .BY DURATION [facility] Rx#: [id number] Piperacillin-Tazobactam 3 200 .375 gm In Sodium Chloride 0.9% 100 ml @ 25 mls/hr IVPB Q8HR [facility] Rx# :[id number] Sodium Chloride 0.9% 1, 825 75 000 ml @ 75 mls/hr IV . [id number] [facility] Rx#:[id number] Intake, IV Titration 1028.277 555.740 Amount Amiodarone 360 mg In 235.001 166.67 Dextrose 5% in Water 200 ml @ 0.5 MG/MIN 16.667 mls/hr IV .Q12H [facility] Rx#: [id number] Phenylephrine 40 mg In 410.196 217.660 Sodium Chloride 0.9% 250 ml @ 0.5 MCG/KG/MIN 18. 669 mls/hr IV .[id number] [facility] Rx#:[id number] Sodium Chloride 0.9% 1, 225 75 000 ml @ 75 mls/hr IV . [id number] [facility] Rx#:[id number] propofoL 1,000 mg In 158.080 96.41 Empty Bag 1 bag @ Titrate IV .Q0M [facility] Rx#: [id number] Output: Urine 620 930 50 Emesis 0 Other: Voiding Method Indwelling Catheter Indwelling Catheter ABP, PAP, CO, CI - Last Documented Arterial Blood Pressure 113/50 Pulmonary Artery Pressure 33/14 Cardiac Output 6.7 Cardiac Index 3.1 - Constitutional General appearance: Present: no acute distress, obese - Respiratory Details: Lungs sounds diminished bilaterally in the bases. Respirations even, non-labor ed on mechanical ventilation. Currently current settings FiO2 50%, tidal volume 600, respiratory rate 14, PEEP 5. ABGs this morning on those settings 7.37/40/112/24/96%/-2.0 on those settings, TV decreased to 500 and FiO2 decreased to 40% by Dr. Cui. 7.5 ET tube present, 23 at the lip - Cardiovascular Details: S1, S2 present. Regular rate and rhythm, normal sinus rhythm on telemetry with rate in the 70s. Sternum stable. Palpable peripheral pulses bilaterally. Generalized generalized edema present. Heart hugger, antiembolism stockings, SCDs present. Right internal jugular triple-lumen central line, right femoral arterial line present. - Gastrointestinal Gastrointestinal Comment(s): Abdomen soft, tender to palpation, slightly distended. No bowel sounds present currently. NG tube present to low intermittent suction with minimal amount green drainage - Genitourinary Genitourinary Comment(s): Villafana catheter present draining clear, yellow urine. Output 35-115 mL/h overnight, 1550 mL in the last 24 hours - Integumentary Integumentary Comment(s): Skin is warm and dry with evidence of good perfusion. Anterior chest incision well approximated and covered with dry intact dressing. Right lower extremity EVH site well approximated. Mid abdominal incision well approximated and covered with dry intact dressing, old drainage present, nothing new - Musculoskeletal Musculoskeletal Comment(s): moves all extremities, equal strength - Psychiatric Psychiatric Comment(s): currently sedated, with lightening of sedation patient does follow commands - Allied health notes Allied health notes reviewed: nursing - Labs CBC & Chem 7: 07/26/20 04:30 07/26/20 04:30 Labs: Abnormal Lab Results - Last 24 Hours (Table) 07/24/20 07/25/20 07/25/20 Range/Units 16:56 11:57 13:31 WBC (3.8-10.6) k/uL RBC (4.30-5.90) m/uL Hgb (13.0-17.5) gm/dL Hct (39.0-53.0) % Neutrophils # (Manual) (1.3-7.7) k/uL Lymphocytes # (Manual) (1.0-4.8) k/uL Metamyelocytes # (Man) (0) k/uL ABG pO2 (83-108) mmHg ABG Total CO2 (19-24) mmol/L ABG O2 Saturation (94-97) % Sodium 127 L (137-145) mmol/L Potassium 5.4 H (3.5-5.1) mmol/L Chloride 96 L (98-107) mmol/L BUN 73 H (9-20) mg/dL Creatinine 2.27 H (0.66-1.25) mg/dL Glucose 166 H (74-99) mg/dL POC Glucose (mg/dL) 169 H (75-99) mg/dL Calcium 7.6 L (8.4-10.2) mg/dL Magnesium 2.7 H (1.6-2.3) mg/dL Total Bilirubin 1.8 H (0.2-1.3) mg/dL ALT 79 H (4-49) U/L Alkaline Phosphatase 26 L (38-126) U/L Total Protein 4.4 L (6.3-8.2) g/dL Albumin 2.6 L (3.5-5.0) g/dL Crossmatch See Detail 07/25/20 07/25/20 07/25/20 Range/Units 16:14 18:15 20:04 WBC (3.8-10.6) k/uL RBC (4.30-5.90) m/uL Hgb (13.0-17.5) gm/dL Hct (39.0-53.0) % Neutrophils # (Manual) (1.3-7.7) k/uL Lymphocytes # (Manual) (1.0-4.8) k/uL Metamyelocytes # (Man) (0) k/uL ABG pO2 (83-108) mmHg ABG Total CO2 (19-24) mmol/L ABG O2 Saturation (94-97) % Sodium 126 L (137-145) mmol/L Potassium (3.5-5.1) mmol/L Chloride (98-107) mmol/L BUN (9-20) mg/dL Creatinine (0.66-1.25) mg/dL Glucose (74-99) mg/dL POC Glucose (mg/dL) 118 H 257 H (75-99) mg/dL Calcium (8.4-10.2) mg/dL Magnesium (1.6-2.3) mg/dL Total Bilirubin (0.2-1.3) mg/dL ALT (4-49) U/L Alkaline Phosphatase (38-126) U/L Total Protein (6.3-8.2) g/dL Albumin (3.5-5.0) g/dL Crossmatch 07/25/20 07/25/20 07/25/20 Range/Units 20:15 21:58 22:00 WBC (3.8-10.6) k/uL RBC (4.30-5.90) m/uL Hgb (13.0-17.5) gm/dL Hct (39.0-53.0) % Neutrophils # (Manual) (1.3-7.7) k/uL Lymphocytes # (Manual) (1.0-4.8) k/uL Metamyelocytes # (Man) (0) k/uL ABG pO2 (83-108) mmHg ABG Total CO2 (19-24) mmol/L ABG O2 Saturation (94-97) % Sodium (137-145) mmol/L Potassium (3.5-5.1) mmol/L Chloride (98-107) mmol/L BUN (9-20) mg/dL Creatinine (0.66-1.25) mg/dL Glucose (74-99) mg/dL POC Glucose (mg/dL) 263 H 286 H 276 H (75-99) mg/dL Calcium (8.4-10.2) mg/dL Magnesium (1.6-2.3) mg/dL Total Bilirubin (0.2-1.3) mg/dL ALT (4-49) U/L Alkaline Phosphatase (38-126) U/L Total Protein (6.3-8.2) g/dL Albumin (3.5-5.0) g/dL Crossmatch 07/25/20 07/26/20 07/26/20 Range/Units 23:02 03:23 03:36 WBC (3.8-10.6) k/uL RBC (4.30-5.90) m/uL Hgb (13.0-17.5) gm/dL Hct (39.0-53.0) % Neutrophils # (Manual) (1.3-7.7) k/uL Lymphocytes # (Manual) (1.0-4.8) k/uL Metamyelocytes # (Man) (0) k/uL ABG pO2 (83-108) mmHg ABG Total CO2 (19-24) mmol/L ABG O2 Saturation (94-97) % Sodium (137-145) mmol/L Potassium (3.5-5.1) mmol/L Chloride (98-107) mmol/L BUN (9-20) mg/dL Creatinine (0.66-1.25) mg/dL Glucose (74-99) mg/dL POC Glucose (mg/dL) 271 H 241 H 168 H (75-99) mg/dL Calcium (8.4-10.2) mg/dL Magnesium (1.6-2.3) mg/dL Total Bilirubin (0.2-1.3) mg/dL ALT (4-49) U/L Alkaline Phosphatase (38-126) U/L Total Protein (6.3-8.2) g/dL Albumin (3.5-5.0) g/dL Crossmatch 07/26/20 07/26/20 07/26/20 Range/Units 03:40 04:30 04:30 WBC 18.7 H (3.8-10.6) k/uL RBC 1.85 L (4.30-5.90) m/uL Hgb 6.4 L* D (13.0-17.5) gm/dL Hct 18.5 L* (39.0-53.0) % Neutrophils # (Manual) 18.10 H (1.3-7.7) k/uL Lymphocytes # (Manual) 0.56 L (1.0-4.8) k/uL Metamyelocytes # (Man) 0.19 H (0) k/uL ABG pO2 (83-108) mmHg ABG Total CO2 (19-24) mmol/L ABG O2 Saturation (94-97) % Sodium 127 L (137-145) mmol/L Potassium (3.5-5.1) mmol/L Chloride (98-107) mmol/L BUN 76 H (9-20) mg/dL Creatinine 2.37 H (0.66-1.25) mg/dL Glucose 212 H (74-99) mg/dL POC Glucose (mg/dL) 249 H (75-99) mg/dL Calcium 7.5 L (8.4-10.2) mg/dL Magnesium 2.8 H (1.6-2.3) mg/dL Total Bilirubin (0.2-1.3) mg/dL ALT 65 H (4-49) U/L Alkaline Phosphatase 34 L (38-126) U/L Total Protein 4.3 L (6.3-8.2) g/dL Albumin 2.4 L (3.5-5.0) g/dL Crossmatch 07/26/20 07/26/20 Range/Units 04:49 05:51 WBC (3.8-10.6) k/uL RBC (4.30-5.90) m/uL Hgb (13.0-17.5) gm/dL Hct (39.0-53.0) % Neutrophils # (Manual) (1.3-7.7) k/uL Lymphocytes # (Manual) (1.0-4.8) k/uL Metamyelocytes # (Man) (0) k/uL ABG pO2 112 H (83-108) mmHg ABG Total CO2 25 H (19-24) mmol/L ABG O2 Saturation 99.6 H (94-97) % Sodium (137-145) mmol/L Potassium (3.5-5.1) mmol/L Chloride (98-107) mmol/L BUN (9-20) mg/dL Creatinine (0.66-1.25) mg/dL Glucose (74-99) mg/dL POC Glucose (mg/dL) 220 H (75-99) mg/dL Calcium (8.4-10.2) mg/dL Magnesium (1.6-2.3) mg/dL Total Bilirubin (0.2-1.3) mg/dL ALT (4-49) U/L Alkaline Phosphatase (38-126) U/L Total Protein (6.3-8.2) g/dL Albumin (3.5-5.0) g/dL Crossmatch - Imaging and Cardiology Chest x-ray: report reviewed, image reviewed Assessment and Plan Assessment: 1. Symptomatic triple-vessel coronary artery disease, status post 2 vessel CABG 2. Mild left ventricular dysfunction 3. Previuos history of stenting to his right coronary artery in 2002 4. Hypertension 5. Hyperlipidemia 6. Hypothyroid status post partial thyroidectomy 7. Previous tobacco dependence with bullous emphysema 8. Moderate chronic obstructive pulmonary disease with preoperative FEV1 of 56% of predicted value 9. Remote history of pneumonia 10. Type 2 diabetes mellitus with a preoperative hemoglobin A1c of 5.2% 11. Chronic kidney disease stage III with a baseline creatinine of 1.4-1.5 12. Family history of premature coronary artery disease with brother having had CABG at less than 50 years old 13. Postoperative acute blood loss anemia, expected outcome 14. Postoperative paroxysmal atrial fibrillation, unexpected, status post exclusion of the left atrial appendage 15. Pneumoperitoneum, unexpected 16. Acute on chronic kidney disease with hyponatremia, hyperkalemia 17. Pneumatosis of the small bowel, status post small bowel resection Plan: 1. Continue low dose aspirin, low-dose beta apolinar 2. Continue IV amiodarone for afib. Will restart anticoagulation when able 3. Ventilator management per environmental restoration planner. Bronchodilators per pulmonology management. Continue IV Zosyn. Will do sedation holiday today 4. Will monitor daily labs and chest x-rays. 5. GI/DVT prophylaxis. 6. Pain control with current medication regimen. 7. Insulin management per Dr. Polk 8. Continue TPN per RD 9. Nephrology following, appreciate recommendations. Avoid nephrotoxic agents 10. Strict accurate intake and output, daily weight 11. More recommendations to follow based on patient's clinical course. Time with Patient: Greater than 30
[2020-07-26] MEDS: BUDESONIDE 1 MG/2 ML NEBU INHALATION SCH ×2 (08:29→19:34)
[2020-07-26] MEDS: IPRATROPIUM-ALBUTEROL 3 ML NEB INHALATION SCH ×4 (08:29→19:34)
[2020-07-26] MEDS: FORMOTEROL FUMARATE 20 MCG/2 ML NEBU INHALATION SCH ×2 (08:29→19:34)
[2020-07-26] MEDS ORDERED: AMIODARONE 200 MG TAB PO SCH (09:00)
[2020-07-26 09:14] LABS: Glucose,Whole Blood 71 mg/dL (75-99)
[2020-07-26] MEDS: PIPERACILLIN-TAZOBACTAM 3.375 GM in SODIUM CHLORIDE 0.9% 100 ML IVPB SCH ×3 (09:22→23:44)
[2020-07-26] MEDS: HEPARIN SODIUM,PORCINE 5,000 UNIT/ML 1 ML VIAL SQ SCH ×3 (09:23→23:45)
[2020-07-26] MEDS: CHLORHEXIDINE GLUCONATE 15 ML CUP MUCOUS MEM SCH ×2 (09:24→20:21)
[2020-07-26] MEDS: LEVOTHYROXINE IVP 100 MCG/5 ML VIAL IV SCH (09:24)
[2020-07-26] MEDS: ASPIRIN 81 MG PO SCH (09:24)
[2020-07-26] MEDS: PANTOPRAZOLE 40 MG/10 ML VIAL IVP SCH ×2 (09:26→20:21)
[2020-07-26] MEDS: METOPROLOL TARTRATE 12.5 MG TAB NG-TUBE SCH ×2 (09:26→20:21)
--- NOTE | 2020-07-26 09:54 | PN ---
PROGRESS NOTE Mr. Tinoco is a gentleman, status post aortocoronary bypass surgery, also developed gangrenous small bowel, had a resection the day before. He is back in sinus rhythm. He is off his Varun-Synephrine drip. He is making decent urine hemodynamically, off all pressors. He is still intubated on a ventilator. However, he is making clinically some progress. Vitals are stable today. Heart rate is 84, blood pressure is 110, making urine, S1-S2 heard normally, short systolic murmur noted, lungs revealed a ventilator assisted breath sounds. Abdomen and lower exam was not performed. Central nervous system assessment was not performed. IMPRESSION: 1. Status post bowel resection and bypass surgery. 2. Back in sinus rhythm. Will resume anticoagulation when okayed by surgery. 3. Status post aortocoronary bypass surgery. 4. Patient is making modest progress. We will continue to watch him closely. MMODL / IJN: [id number] /
[2020-07-26 09:58] LABS: Glucose,Whole Blood 170 mg/dL (75-99)
--- NOTE | 2020-07-26 10:58 | P.PN ---
Subjective Progress Note Date: 07/26/20 No new complaints today. Patient is intubated/sedated. Rec'd 1U PRBC overnight, 3L of fluid in last 24 hours. Objective - Vital Signs Vital signs: Vital Signs Temp 97.8 F 07/26/20 08:22 Pulse 76 07/26/20 10:00 Resp 20 07/26/20 10:00 BP 111/49 07/26/20 08:22 Pulse Ox 98 07/26/20 10:00 Intake & Output 07/25/20 07/26/20 07/26/20 18:59 06:59 18:59 Intake Total 4493.277 1740.740 581.092 Output Total 620 930 255 Balance 3873.277 810.740 326.092 Weight 105.6 kg 109 kg Intake: IV 3465 1185 410 Albumin Human 5% 250 ml 500 In Empty Bag 1 bag @ 250 mls/hr IVPB ONCE [facility] Rx#: [id number] Lactated Ringers 1,000 ml 675 @ 125 mls/hr IV .Q8H [facility] Rx#:[id number] Lactated Ringers 1,000 ml 2000 @ 999 mls/hr IV .Q1H1M [facility] Rx#:[id number] Mvi, Adult No.4 with Vit 90 360 120 K 10 ml Trace (Conc-1Ml/ Dose) 1 ml Sodium Chloride 2.5MEQ/ml Vial 15 meq Calcium Gluconate 1 gm Sodium Phosphate 15 mmol In Amino Acid 5%- D15w 1,000 ml @ 60 mls/hr IV .BY DURATION [facility] Rx#: [id number] Piperacillin-Tazobactam 3 200 100 .375 gm In Sodium Chloride 0.9% 100 ml @ 25 mls/hr IVPB Q8HR [facility] Rx# :[id number] Sodium Chloride 0.9% 1, 825 190 000 ml @ 20 mls/hr IV . Q24H [facility] Rx#:[id number] Intake, IV Titration 1028.277 555.740 171.092 Amount Amiodarone 360 mg In 235.001 166.67 Dextrose 5% in Water 200 ml @ 0.5 MG/MIN 16.667 mls/hr IV .Q12H [facility] Rx#: [id number] Insulin Regular 100 unit 1.768 In Sodium Chloride 0.9% 100 ml @ Per Protocol IV .Q0M [facility] Rx#:[id number] Phenylephrine 40 mg In 410.196 217.660 Sodium Chloride 0.9% 250 ml @ 0.5 MCG/KG/MIN 18. 669 mls/hr IV .[id number] [facility] Rx#:[id number] Piperacillin-Tazobactam 3 100 .375 gm In Sodium Chloride 0.9% 100 ml @ 25 mls/hr IVPB Q8HR [facility] Rx# :[id number] Sodium Chloride 0.9% 1, 225 75 000 ml @ 20 mls/hr IV . Q24H [facility] Rx#:[id number] propofoL 1,000 mg In 158.080 96.41 69.324 Empty Bag 1 bag @ Titrate IV .Q0M [facility] Rx#: [id number] Blood Product 0 Rc Irr As1 Unit 0 [id number] Output: Urine 620 930 255 Emesis 0 Other: Voiding Method Indwelling Catheter Indwelling Catheter Indwelling Catheter ABP, PAP, CO, CI - Last Documented Arterial Blood Pressure 113/49 Pulmonary Artery Pressure 33/14 Cardiac Output 6.7 Cardiac Index 3.1 - Exam Gen: intubated, sedated HEENT: normocephalic, atraumatic, moist mucous membranes Resp: Vented: TV 600, RR 14, PEEP 5, FiO2 50% CVS: good distal perfusion x 4, RRR, no murmurs, clicks, gallops GI: soft, NTTP, ND : no SPT, no CVAT, malagon catheter is present MSK: + pitting edema, no clubbing Neuro: non-focal, no sensory deficits, appropriate tone - Labs CBC & Chem 7: 07/26/20 04:30 07/26/20 04:30 Labs: Abnormal Lab Results - Last 24 Hours (Table) 07/24/20 07/25/20 07/25/20 Range/Units 16:56 11:57 13:31 WBC (3.8-10.6) k/uL RBC (4.30-5.90) m/uL Hgb (13.0-17.5) gm/dL Hct (39.0-53.0) % Neutrophils # (Manual) (1.3-7.7) k/uL Lymphocytes # (Manual) (1.0-4.8) k/uL Metamyelocytes # (Man) (0) k/uL ABG pO2 (83-108) mmHg ABG Total CO2 (19-24) mmol/L ABG O2 Saturation (94-97) % Sodium 127 L (137-145) mmol/L Potassium 5.4 H (3.5-5.1) mmol/L Chloride 96 L (98-107) mmol/L BUN 73 H (9-20) mg/dL Creatinine 2.27 H (0.66-1.25) mg/dL Glucose 166 H (74-99) mg/dL POC Glucose (mg/dL) 169 H (75-99) mg/dL Calcium 7.6 L (8.4-10.2) mg/dL Magnesium 2.7 H (1.6-2.3) mg/dL Total Bilirubin 1.8 H (0.2-1.3) mg/dL ALT 79 H (4-49) U/L Alkaline Phosphatase 26 L (38-126) U/L Total Protein 4.4 L (6.3-8.2) g/dL Albumin 2.6 L (3.5-5.0) g/dL Crossmatch See Detail 07/25/20 07/25/20 07/25/20 Range/Units 16:14 18:15 20:04 WBC (3.8-10.6) k/uL RBC (4.30-5.90) m/uL Hgb (13.0-17.5) gm/dL Hct (39.0-53.0) % Neutrophils # (Manual) (1.3-7.7) k/uL Lymphocytes # (Manual) (1.0-4.8) k/uL Metamyelocytes # (Man) (0) k/uL ABG pO2 (83-108) mmHg ABG Total CO2 (19-24) mmol/L ABG O2 Saturation (94-97) % Sodium 126 L (137-145) mmol/L Potassium (3.5-5.1) mmol/L Chloride (98-107) mmol/L BUN (9-20) mg/dL Creatinine (0.66-1.25) mg/dL Glucose (74-99) mg/dL POC Glucose (mg/dL) 118 H 257 H (75-99) mg/dL Calcium (8.4-10.2) mg/dL Magnesium (1.6-2.3) mg/dL Total Bilirubin (0.2-1.3) mg/dL ALT (4-49) U/L Alkaline Phosphatase (38-126) U/L Total Protein (6.3-8.2) g/dL Albumin (3.5-5.0) g/dL Crossmatch 07/25/20 07/25/20 07/25/20 Range/Units 20:15 21:58 22:00 WBC (3.8-10.6) k/uL RBC (4.30-5.90) m/uL Hgb (13.0-17.5) gm/dL Hct (39.0-53.0) % Neutrophils # (Manual) (1.3-7.7) k/uL Lymphocytes # (Manual) (1.0-4.8) k/uL Metamyelocytes # (Man) (0) k/uL ABG pO2 (83-108) mmHg ABG Total CO2 (19-24) mmol/L ABG O2 Saturation (94-97) % Sodium (137-145) mmol/L Potassium (3.5-5.1) mmol/L Chloride (98-107) mmol/L BUN (9-20) mg/dL Creatinine (0.66-1.25) mg/dL Glucose (74-99) mg/dL POC Glucose (mg/dL) 263 H 286 H 276 H (75-99) mg/dL Calcium (8.4-10.2) mg/dL Magnesium (1.6-2.3) mg/dL Total Bilirubin (0.2-1.3) mg/dL ALT (4-49) U/L Alkaline Phosphatase (38-126) U/L Total Protein (6.3-8.2) g/dL Albumin (3.5-5.0) g/dL Crossmatch 07/25/20 07/26/20 07/26/20 Range/Units 23:02 03:23 03:36 WBC (3.8-10.6) k/uL RBC (4.30-5.90) m/uL Hgb (13.0-17.5) gm/dL Hct (39.0-53.0) % Neutrophils # (Manual) (1.3-7.7) k/uL Lymphocytes # (Manual) (1.0-4.8) k/uL Metamyelocytes # (Man) (0) k/uL ABG pO2 (83-108) mmHg ABG Total CO2 (19-24) mmol/L ABG O2 Saturation (94-97) % Sodium (137-145) mmol/L Potassium (3.5-5.1) mmol/L Chloride (98-107) mmol/L BUN (9-20) mg/dL Creatinine (0.66-1.25) mg/dL Glucose (74-99) mg/dL POC Glucose (mg/dL) 271 H 241 H 168 H (75-99) mg/dL Calcium (8.4-10.2) mg/dL Magnesium (1.6-2.3) mg/dL Total Bilirubin (0.2-1.3) mg/dL ALT (4-49) U/L Alkaline Phosphatase (38-126) U/L Total Protein (6.3-8.2) g/dL Albumin (3.5-5.0) g/dL Crossmatch 07/26/20 07/26/20 07/26/20 Range/Units 03:40 04:30 04:30 WBC 18.7 H (3.8-10.6) k/uL RBC 1.85 L (4.30-5.90) m/uL Hgb 6.4 L* D (13.0-17.5) gm/dL Hct 18.5 L* (39.0-53.0) % Neutrophils # (Manual) 18.10 H (1.3-7.7) k/uL Lymphocytes # (Manual) 0.56 L (1.0-4.8) k/uL Metamyelocytes # (Man) 0.19 H (0) k/uL ABG pO2 (83-108) mmHg ABG Total CO2 (19-24) mmol/L ABG O2 Saturation (94-97) % Sodium 127 L (137-145) mmol/L Potassium (3.5-5.1) mmol/L Chloride (98-107) mmol/L BUN 76 H (9-20) mg/dL Creatinine 2.37 H (0.66-1.25) mg/dL Glucose 212 H (74-99) mg/dL POC Glucose (mg/dL) 249 H (75-99) mg/dL Calcium 7.5 L (8.4-10.2) mg/dL Magnesium 2.8 H (1.6-2.3) mg/dL Total Bilirubin (0.2-1.3) mg/dL ALT 65 H (4-49) U/L Alkaline Phosphatase 34 L (38-126) U/L Total Protein 4.3 L (6.3-8.2) g/dL Albumin 2.4 L (3.5-5.0) g/dL Crossmatch 07/26/20 07/26/20 07/26/20 Range/Units 04:49 05:51 07:55 WBC (3.8-10.6) k/uL RBC (4.30-5.90) m/uL Hgb (13.0-17.5) gm/dL Hct (39.0-53.0) % Neutrophils # (Manual) (1.3-7.7) k/uL Lymphocytes # (Manual) (1.0-4.8) k/uL Metamyelocytes # (Man) (0) k/uL ABG pO2 112 H (83-108) mmHg ABG Total CO2 25 H (19-24) mmol/L ABG O2 Saturation 99.6 H (94-97) % Sodium (137-145) mmol/L Potassium (3.5-5.1) mmol/L Chloride (98-107) mmol/L BUN (9-20) mg/dL Creatinine (0.66-1.25) mg/dL Glucose (74-99) mg/dL POC Glucose (mg/dL) 220 H 130 H (75-99) mg/dL Calcium (8.4-10.2) mg/dL Magnesium (1.6-2.3) mg/dL Total Bilirubin (0.2-1.3) mg/dL ALT (4-49) U/L Alkaline Phosphatase (38-126) U/L Total Protein (6.3-8.2) g/dL Albumin (3.5-5.0) g/dL Crossmatch 07/26/20 07/26/20 07/26/20 Range/Units 07:59 09:13 09:56 WBC (3.8-10.6) k/uL RBC (4.30-5.90) m/uL Hgb (13.0-17.5) gm/dL Hct (39.0-53.0) % Neutrophils # (Manual) (1.3-7.7) k/uL Lymphocytes # (Manual) (1.0-4.8) k/uL Metamyelocytes # (Man) (0) k/uL ABG pO2 (83-108) mmHg ABG Total CO2 (19-24) mmol/L ABG O2 Saturation (94-97) % Sodium (137-145) mmol/L Potassium (3.5-5.1) mmol/L Chloride (98-107) mmol/L BUN (9-20) mg/dL Creatinine (0.66-1.25) mg/dL Glucose (74-99) mg/dL POC Glucose (mg/dL) 136 H 71 L 170 H (75-99) mg/dL Calcium (8.4-10.2) mg/dL Magnesium (1.6-2.3) mg/dL Total Bilirubin (0.2-1.3) mg/dL ALT (4-49) U/L Alkaline Phosphatase (38-126) U/L Total Protein (6.3-8.2) g/dL Albumin (3.5-5.0) g/dL Crossmatch Microbiology - Last 24 Hours (Table) 07/24/20 19:03 Gram Stain - Preliminary Sputum Sputum Culture - Preliminary Gram Neg Bacilli Assessment and Plan Assessment: 1. CAD s/p CABG with 2v bypass, PABLO to LAD, and SVG to posterior decending coronary artery 2. Paroxysmal Atrial Fibrillation, with RVR 3. 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 Pneumatosis, Ischemic Bowel, s/p small bowel resection 5. Acute Blood Loss Anemia, post-operative, resolved 6. Pneumoperitoneum secondary to chest tubes, resolving 7. CONNOR superimposed on CKD, stage III, worsening 8. Hypertension, essential 9. Hyperlipidemia 10. Type II DM, uncontrolled 11. Hypothyroidism 12. Obesity, BMI 30.5 13. Hyponatremia and Hyperkalemia 80 year old man with history of COPD, CKD III, HTN/HLD/CAD/DM, Obesity presented for symptomatic CAD and underwent 2v CABG with post-operative course complicated by respiratory failure secondary to COPD exacerbation, blood loss anemia, paroxysmal atrial fibrillation with RVR, and metabolic derangements. DM 2 - hold metformin - Inulin subcutaneous with sliding scale insulin coverage, check blood sugars every before meals and at bedtime, Levemir added on 07/21. - Blood sugars currently controlled, follow blood sugars closely - A1C from 06/21/2020 5.2, anticipate discharge home back on metformin which may be able to come off in the near future in the outpatient setting. Small Bowel Ischemia - surgery consult - POD #2 s/p resection - LR @ 75cc/hr, can uptitrate as patient appears dry on 07/25 A-fib with RVR On amio and eliquis Off cardizem gtt CONNOR on CKD stage III Baseline cr 1.4-1.5 Likely cardiorenal syndrome, patient received contrast earlier in the admission. Try to avoid IV fluids Recheck in am Avoid nephrotoxic meds Nephrology is following Acute hyponatremia Likely sec to renal failure Monitor Nephrology consulted, checking urine and plasma osmolalities as well as urine sodium. Hyperkalemia Kayexalate 15 g, follow K in a.m. Pneumoperitoneum suspect secondary to mediastinal chest tubes -Tube d/melody -Resolved. Constipation On Senokot, MiraLAX Had a bowel movement today Acute blood loss anemia and thrombocytopenia, anticipated outcome of surgery - follow CBC - transfuse as indicated COPD with acute exacerbation - On steroids, we'll wean down today from 60 to 40 mg every 6 hours. - DuoNebs - on spiriva and advair at home Coronary artery disease -Status post coronary artery bypass grafting -Cardiothoracic and cardiology following HTN - meds per CT surgery - follow BP Hypothyroidism status post partial thyroidectomy - synthroid Morbid obesity with BMI 30.5 -Outpatient structured weight loss Chronic: ADDY Jacobs's Thank you for allowing us to participate in the care of this pleasant patient. Do not hesitate to contact us with questions. Someone can be reached from the [facility] hospitalist group all hours of the day at [phone] or via perfect serve.
[2020-07-26 11:20] LABS: Glucose,Whole Blood 174 mg/dL (75-99)
--- NOTE | 2020-07-26 12:00 | PN ---
PROGRESS NOTE Patient is seen for followup for acute kidney injury, hyponatremia. This morning patient remains on the vent. He was started on TPN. Currently running at 30 mL an hour with goal at 60, saline has been discontinued. Urine output has improved. Patient's atrial fibrillation has converted to normal sinus rhythm. He remains on the vent. However, he is awake and moving. PHYSICAL EXAMINATION: Today, blood pressure was 113/49, heart rate 76 per minute, he is afebrile. Examination of the heart S1, S2. Examination of the lungs, decreased breath sounds at bases patient, bilateral breath sounds are heard. Abdomen is soft, currently dressed. Examination of lower extremities shows edema 1+ bilaterally. 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 He had been following commands. Currently maintained on some sedation for the vent. LABS: From today show sodium of 127, potassium 4.9, chloride 99, BUN 76, creatinine 2.37, hemoglobin was 6.4 g/dL today. ASSESSMENT: 1. Acute kidney injury ATN nonoliguric with some improvement in urine output. Current urine output at 80-100 mL an hour. Patient is maintained on TPN, which I will continue. No nephrotoxic agents on board. Definitely, the acute kidney injury has been worsened with the severe anemia with hemoglobin of 6.4 g/dL today. 2. Atrial fibrillation with RVR currently in sinus rhythm. 3. Status post small bowel resection for ischemic bowel and pneumatosis. 4. Status post coronary artery bypass surgery x3. 5. Hyponatremia which is hypervolemic associated with third spacing. Currently maintained on TPN. Sodium is staying stable at about 127. If his sodium level drops further, we can increase the sodium in the TPN. However, at this point, it is a standard TPN dose. 6. Chronic kidney disease stage 3, previous creatinine 1.1-1.2 mg/dL secondary to nephrosclerosis. PLAN: Continue with TPN. Monitor electrolytes. Agree with packed RBCs transfusion. Check iron profile, rule out iron deficiency. MMODL / IJN: [id number] /
[2020-07-26 12:04] LABS: Glucose,Whole Blood 201 mg/dL (75-99)
[2020-07-26] MEDS: AMIODARONE 360 MG in DEXTROSE 5% IN WATER 200 ML IV SCH ×4 (12:06→23:43)
[2020-07-26 12:21] LABS: Anisocytosis Slight; HCT 22.7 % (39.0-53.0); HGB 7.4 gm/dL (13.0-17.5); Hypochromasia Slight; MCHC 32.5 g/dL (31.0-37.0); MCV 98.4 fL (80.0-100.0); Macrocytosis Slight; Mean Platelet Volume 7.9; Platelet Count 139 k/uL (150-450); Poikilocytosis Slight; RDW 16.4 % (11.5-15.5); WBC 18.4 k/uL (3.8-10.6)
[2020-07-26 13:14] LABS: Glucose,Whole Blood 182 mg/dL (75-99)
--- NOTE | 2020-07-26 14:07 | P.PN ---
Subjective Progress Note Date: 07/26/20 CHIEF COMPLAINT: Status post CABG 2 vessels HISTORY OF PRESENT ILLNESS: Patient seen and examined with Dr. Dempsey. He is in the ICU. He is intubated and sedated. Patient is postop day #2 status post small bowel resection for ischemic small bowel with evidence of pneumatosis. Patient's blood pressure has shown improvement. He is off of pressor support. He is receiving 1 unit of blood for hemoglobin of 6.4. Patient did receive 3 L of fluid throughout the day yesterday. It is felt his job and hemoglobin is likely related due to dilutional. Patient had bilious output through NG tube. He is on TPN for nutrition support patient undergoing a sedation holiday. Afebrile. WBC has decreased from 21.7-18.7 PHYSICAL EXAM: VITAL SIGNS: Reviewed. GENERAL: Well-developed in no acute distress. HEENT: No sclera icterus. Extraocular movements grossly intact. Moist buccal mucosa. Head is atraumatic, normocephalic. ABDOMEN: Distended. NEUROLOGIC: Intubated and sedated ASSESSMENT: 1. Ischemic small bowel with evidence of pneumatosis status post small bowel resection 2. Acute hypoxic respiratory failure requiring mechanical ventilation 3. symptomatic triple-vessel coronary artery disease status post 2 vessel coronary bypass grafting surgery 4. History of coronary artery disease with stent placement to the RCA in 2002 5. Hypertension 6. Diabetes mellitus type 2 PLAN: -Continue IV antibiotics -Continue TPN for nutrition support -Continue supportive care -DVT prophylaxis subcu heparin and GI prophylaxis Protonix Physician Client Retention Specialist note has been reviewed by physician. Signing provider agrees with the documented findings, assessment, and plan of care. Objective - Vital Signs Vital signs: Vital Signs Temp 97.6 F 07/26/20 12:00 Pulse 73 07/26/20 13:00 Resp 21 07/26/20 13:00 BP 109/55 07/26/20 12:00 Pulse Ox 99 07/26/20 13:00 Intake & Output 07/25/20 07/26/20 07/26/20 18:59 06:59 18:59 Intake Total 4493.277 5839.479 4950.109 Output Total 620 930 490 Balance 3873.277 810.740 811.109 Weight 105.6 kg 109 kg Intake: IV 3465 1185 560 Albumin Human 5% 250 ml 500 In Empty Bag 1 bag @ 250 mls/hr IVPB ONCE [facility] Rx#: [id number] Lactated Ringers 1,000 ml 675 @ 125 mls/hr IV .Q8H [facility] Rx#:[id number] Lactated Ringers 1,000 ml 2000 @ 999 mls/hr IV .Q1H1M [facility] Rx#:[id number] Mvi, Adult No.4 with Vit 90 360 210 K 10 ml Trace (Conc-1Ml/ Dose) 1 ml Sodium Chloride 2.5MEQ/ml Vial 15 meq Calcium Gluconate 1 gm Sodium Phosphate 15 mmol In Amino Acid 5%- D15w 1,000 ml @ 60 mls/hr IV .BY DURATION [facility] Rx#: [id number] Piperacillin-Tazobactam 3 200 100 .375 gm In Sodium Chloride 0.9% 100 ml @ 25 mls/hr IVPB Q8HR [facility] Rx# :[id number] Sodium Chloride 0.9% 1, 825 250 000 ml @ 20 mls/hr IV . Q24H [facility] Rx#:[id number] Intake, IV Titration 1028.277 555.740 431.109 Amount Amiodarone 360 mg In 235.001 166.67 200 Dextrose 5% in Water 200 ml @ 0.5 MG/MIN 16.667 mls/hr IV .Q12H [facility] Rx#: [id number] Insulin Regular 100 unit 10.555 In Sodium Chloride 0.9% 100 ml @ Per Protocol IV .Q0M [facility] Rx#:[id number] Phenylephrine 40 mg In 410.196 217.660 Sodium Chloride 0.9% 250 ml @ 0.5 MCG/KG/MIN 18. 669 mls/hr IV .[id number] [facility] Rx#:[id number] Piperacillin-Tazobactam 3 100 .375 gm In Sodium Chloride 0.9% 100 ml @ 25 mls/hr IVPB Q8HR [facility] Rx# :[id number] Sodium Chloride 0.9% 1, 225 75 000 ml @ 20 mls/hr IV . Q24H [facility] Rx#:[id number] propofoL 1,000 mg In 158.080 96.41 120.554 Empty Bag 1 bag @ Titrate IV .Q0M [facility] Rx#: [id number] Blood Product 310 Rc Irr As1 Unit 310 [id number] Output: Urine 620 930 490 Emesis 0 Other: Voiding Method Indwelling Catheter Indwelling Catheter Indwelling Catheter ABP, PAP, CO, CI - Last Documented Arterial Blood Pressure 112/49 Pulmonary Artery Pressure 33/14 Cardiac Output 6.7 Cardiac Index 3.1 - Labs CBC & Chem 7: 07/26/20 11:57 07/26/20 04:30 Labs: Abnormal Lab Results - Last 24 Hours (Table) 07/24/20 07/25/20 07/25/20 Range/Units 16:56 13:31 16:14 WBC (3.8-10.6) k/uL RBC (4.30-5.90) m/uL Hgb (13.0-17.5) gm/dL Hct (39.0-53.0) % RDW (11.5-15.5) % Plt Count (150-450) k/uL Neutrophils # (Manual) (1.3-7.7) k/uL Lymphocytes # (Manual) (1.0-4.8) k/uL Metamyelocytes # (Man) (0) k/uL ABG pO2 (83-108) mmHg ABG Total CO2 (19-24) mmol/L ABG O2 Saturation (94-97) % Sodium 127 L (137-145) mmol/L Potassium 5.4 H (3.5-5.1) mmol/L Chloride 96 L (98-107) mmol/L BUN 73 H (9-20) mg/dL Creatinine 2.27 H (0.66-1.25) mg/dL Glucose 166 H (74-99) mg/dL POC Glucose (mg/dL) 118 H (75-99) mg/dL Calcium 7.6 L (8.4-10.2) mg/dL Magnesium 2.7 H (1.6-2.3) mg/dL Total Bilirubin 1.8 H (0.2-1.3) mg/dL ALT 79 H (4-49) U/L Alkaline Phosphatase 26 L (38-126) U/L Total Protein 4.4 L (6.3-8.2) g/dL Albumin 2.6 L (3.5-5.0) g/dL Crossmatch See Detail 07/25/20 07/25/20 07/25/20 Range/Units 18:15 20:04 20:15 WBC (3.8-10.6) k/uL RBC (4.30-5.90) m/uL Hgb (13.0-17.5) gm/dL Hct (39.0-53.0) % RDW (11.5-15.5) % Plt Count (150-450) k/uL Neutrophils # (Manual) (1.3-7.7) k/uL Lymphocytes # (Manual) (1.0-4.8) k/uL Metamyelocytes # (Man) (0) k/uL ABG pO2 (83-108) mmHg ABG Total CO2 (19-24) mmol/L ABG O2 Saturation (94-97) % Sodium 126 L (137-145) mmol/L Potassium (3.5-5.1) mmol/L Chloride (98-107) mmol/L BUN (9-20) mg/dL Creatinine (0.66-1.25) mg/dL Glucose (74-99) mg/dL POC Glucose (mg/dL) 257 H 263 H (75-99) mg/dL Calcium (8.4-10.2) mg/dL Magnesium (1.6-2.3) mg/dL Total Bilirubin (0.2-1.3) mg/dL ALT (4-49) U/L Alkaline Phosphatase (38-126) U/L Total Protein (6.3-8.2) g/dL Albumin (3.5-5.0) g/dL Crossmatch 07/25/20 07/25/20 07/25/20 Range/Units 21:58 22:00 23:02 WBC (3.8-10.6) k/uL RBC (4.30-5.90) m/uL Hgb (13.0-17.5) gm/dL Hct (39.0-53.0) % RDW (11.5-15.5) % Plt Count (150-450) k/uL Neutrophils # (Manual) (1.3-7.7) k/uL Lymphocytes # (Manual) (1.0-4.8) k/uL Metamyelocytes # (Man) (0) k/uL ABG pO2 (83-108) mmHg ABG Total CO2 (19-24) mmol/L ABG O2 Saturation (94-97) % Sodium (137-145) mmol/L Potassium (3.5-5.1) mmol/L Chloride (98-107) mmol/L BUN (9-20) mg/dL Creatinine (0.66-1.25) mg/dL Glucose (74-99) mg/dL POC Glucose (mg/dL) 286 H 276 H 271 H (75-99) mg/dL Calcium (8.4-10.2) mg/dL Magnesium (1.6-2.3) mg/dL Total Bilirubin (0.2-1.3) mg/dL ALT (4-49) U/L Alkaline Phosphatase (38-126) U/L Total Protein (6.3-8.2) g/dL Albumin (3.5-5.0) g/dL Crossmatch 07/26/20 07/26/20 07/26/20 Range/Units 03:23 03:36 03:40 WBC (3.8-10.6) k/uL RBC (4.30-5.90) m/uL Hgb (13.0-17.5) gm/dL Hct (39.0-53.0) % RDW (11.5-15.5) % Plt Count (150-450) k/uL Neutrophils # (Manual) (1.3-7.7) k/uL Lymphocytes # (Manual) (1.0-4.8) k/uL Metamyelocytes # (Man) (0) k/uL ABG pO2 (83-108) mmHg ABG Total CO2 (19-24) mmol/L ABG O2 Saturation (94-97) % Sodium (137-145) mmol/L Potassium (3.5-5.1) mmol/L Chloride (98-107) mmol/L BUN (9-20) mg/dL Creatinine (0.66-1.25) mg/dL Glucose (74-99) mg/dL POC Glucose (mg/dL) 241 H 168 H 249 H (75-99) mg/dL Calcium (8.4-10.2) mg/dL Magnesium (1.6-2.3) mg/dL Total Bilirubin (0.2-1.3) mg/dL ALT (4-49) U/L Alkaline Phosphatase (38-126) U/L Total Protein (6.3-8.2) g/dL Albumin (3.5-5.0) g/dL Crossmatch 07/26/20 07/26/20 07/26/20 Range/Units 04:30 04:30 04:49 WBC 18.7 H (3.8-10.6) k/uL RBC 1.85 L (4.30-5.90) m/uL Hgb 6.4 L* D (13.0-17.5) gm/dL Hct 18.5 L* (39.0-53.0) % RDW (11.5-15.5) % Plt Count (150-450) k/uL Neutrophils # (Manual) 18.10 H (1.3-7.7) k/uL Lymphocytes # (Manual) 0.56 L (1.0-4.8) k/uL Metamyelocytes # (Man) 0.19 H (0) k/uL ABG pO2 112 H (83-108) mmHg ABG Total CO2 25 H (19-24) mmol/L ABG O2 Saturation 99.6 H (94-97) % Sodium 127 L (137-145) mmol/L Potassium (3.5-5.1) mmol/L Chloride (98-107) mmol/L BUN 76 H (9-20) mg/dL Creatinine 2.37 H (0.66-1.25) mg/dL Glucose 212 H (74-99) mg/dL POC Glucose (mg/dL) (75-99) mg/dL Calcium 7.5 L (8.4-10.2) mg/dL Magnesium 2.8 H (1.6-2.3) mg/dL Total Bilirubin (0.2-1.3) mg/dL ALT 65 H (4-49) U/L Alkaline Phosphatase 34 L (38-126) U/L Total Protein 4.3 L (6.3-8.2) g/dL Albumin 2.4 L (3.5-5.0) g/dL Crossmatch 07/26/20 07/26/20 07/26/20 Range/Units 05:51 07:55 07:59 WBC (3.8-10.6) k/uL RBC (4.30-5.90) m/uL Hgb (13.0-17.5) gm/dL Hct (39.0-53.0) % RDW (11.5-15.5) % Plt Count (150-450) k/uL Neutrophils # (Manual) (1.3-7.7) k/uL Lymphocytes # (Manual) (1.0-4.8) k/uL Metamyelocytes # (Man) (0) k/uL ABG pO2 (83-108) mmHg ABG Total CO2 (19-24) mmol/L ABG O2 Saturation (94-97) % Sodium (137-145) mmol/L Potassium (3.5-5.1) mmol/L Chloride (98-107) mmol/L BUN (9-20) mg/dL Creatinine (0.66-1.25) mg/dL Glucose (74-99) mg/dL POC Glucose (mg/dL) 220 H 130 H 136 H (75-99) mg/dL Calcium (8.4-10.2) mg/dL Magnesium (1.6-2.3) mg/dL Total Bilirubin (0.2-1.3) mg/dL ALT (4-49) U/L Alkaline Phosphatase (38-126) U/L Total Protein (6.3-8.2) g/dL Albumin (3.5-5.0) g/dL Crossmatch 07/26/20 07/26/20 07/26/20 Range/Units 09:13 09:56 11:18 WBC (3.8-10.6) k/uL RBC (4.30-5.90) m/uL Hgb (13.0-17.5) gm/dL Hct (39.0-53.0) % RDW (11.5-15.5) % Plt Count (150-450) k/uL Neutrophils # (Manual) (1.3-7.7) k/uL Lymphocytes # (Manual) (1.0-4.8) k/uL Metamyelocytes # (Man) (0) k/uL ABG pO2 (83-108) mmHg ABG Total CO2 (19-24) mmol/L ABG O2 Saturation (94-97) % Sodium (137-145) mmol/L Potassium (3.5-5.1) mmol/L Chloride (98-107) mmol/L BUN (9-20) mg/dL Creatinine (0.66-1.25) mg/dL Glucose (74-99) mg/dL POC Glucose (mg/dL) 71 L 170 H 174 H (75-99) mg/dL Calcium (8.4-10.2) mg/dL Magnesium (1.6-2.3) mg/dL Total Bilirubin (0.2-1.3) mg/dL ALT (4-49) U/L Alkaline Phosphatase (38-126) U/L Total Protein (6.3-8.2) g/dL Albumin (3.5-5.0) g/dL Crossmatch 07/26/20 07/26/20 07/26/20 Range/Units 11:55 11:57 13:04 WBC 18.4 H (3.8-10.6) k/uL RBC 2.30 L (4.30-5.90) m/uL Hgb 7.4 L (13.0-17.5) gm/dL Hct 22.7 L (39.0-53.0) % RDW 16.4 H (11.5-15.5) % Plt Count 139 L (150-450) k/uL Neutrophils # (Manual) (1.3-7.7) k/uL Lymphocytes # (Manual) (1.0-4.8) k/uL Metamyelocytes # (Man) (0) k/uL ABG pO2 (83-108) mmHg ABG Total CO2 (19-24) mmol/L ABG O2 Saturation (94-97) % Sodium (137-145) mmol/L Potassium (3.5-5.1) mmol/L Chloride (98-107) mmol/L BUN (9-20) mg/dL Creatinine (0.66-1.25) mg/dL Glucose (74-99) mg/dL POC Glucose (mg/dL) 201 H 182 H (75-99) mg/dL Calcium (8.4-10.2) mg/dL Magnesium (1.6-2.3) mg/dL Total Bilirubin (0.2-1.3) mg/dL ALT (4-49) U/L Alkaline Phosphatase (38-126) U/L Total Protein (6.3-8.2) g/dL Albumin (3.5-5.0) g/dL Crossmatch Microbiology - Last 24 Hours (Table) 07/24/20 19:03 Gram Stain - Preliminary Sputum Sputum Culture - Preliminary Gram Neg Bacilli
[2020-07-26 14:13] LABS: Glucose,Whole Blood 162 mg/dL (75-99)
[2020-07-26] MEDS: HYDROmorphone 0.5 MG/0.5 ML SYRINGE IVP PRN ×3 (14:18→23:45)
[2020-07-26] MEDS ORDERED: 1: MVI, ADULT NO.4 WITH VIT K 10 ML, TRACE (CONC-1ML/DOSE) 1 ML, SODIUM CHLORIDE 2.5MEQ/ IV SCH ×6 (14:45)
[2020-07-26 15:35] LABS: Glucose,Whole Blood 125 mg/dL (75-99)
[2020-07-26] MEDS: 1: MVI, ADULT NO.4 WITH VIT K 10 ML, TRACE (CONC-1ML/DOSE) 1 ML, SODIUM CHLORIDE 2.5MEQ/ IV SCH ×6 (15:37)
[2020-07-26 15:59] LABS: Glucose,Whole Blood 111 mg/dL (75-99)
[2020-07-26 17:13] LABS: Glucose,Whole Blood 130 mg/dL (75-99)
[2020-07-26] MEDS: DEXMEDETOMIDINE/0.9% NACL(PMX) 400 MCG in EMPTY BAG 1 BAG IV SCH ×2 (17:36→23:42)
[2020-07-26 18:03] LABS: Glucose,Whole Blood 182 mg/dL (75-99)
[2020-07-26 19:07] LABS: Glucose,Whole Blood 195 mg/dL (75-99)
[2020-07-26 20:13] LABS: Glucose,Whole Blood 226 mg/dL (75-99)
[2020-07-26] MEDS ORDERED: INSULIN DETEMIR (LEVEMIR) 100 UNIT/ML SYR SQ SCH (21:00)
[2020-07-26 21:48] LABS: Glucose,Whole Blood 220 mg/dL (75-99)
[2020-07-26 21:55] LABS: % Iron Saturation 4.3 (15.00-50.00)
[2020-07-26 23:41] LABS: Glucose,Whole Blood 179 mg/dL (75-99)
[2020-07-27 00:33] LABS: Glucose,Whole Blood 186 mg/dL (75-99)
[2020-07-27 02:54] LABS: Glucose,Whole Blood 171 mg/dL (75-99)
[2020-07-27 04:52] LABS: Glucose,Whole Blood 153 mg/dL (75-99)
[2020-07-27 04:54] LABS: ABG Base Excess -2.6 mmol/L; ABG HCO3 23 mmol/L (21-25); ABG Oxygen Saturation 98.3 % (94-97); ABG PCO2 42 mmHg (35-45); ABG PH 7.35 (7.35-7.45); ABG PO2 92 mmHg (83-108); ABG TCO2 24 mmol/L (19-24)
[2020-07-27 05:14] LABS: Anisocytosis Slight; Basophils % (A) 0 %; Eosinophils # (A) 0.1 k/uL (0-0.7); Eosinophils % (A) 0 %; HCT 21.3 % (39.0-53.0); Hypochromasia Slight; Lymphocytes # (A) 0.3 k/uL (1.0-4.8); Lymphocytes % (A) 2 %; MCH 31.7 pg (25.0-35.0); MCHC 32.3 g/dL (31.0-37.0); Macrocytosis Slight; Mean Platelet Volume 7.3; Monocytes # (A) 0.4 k/uL (0-1.0); Monocytes % (A) 3 %; Neutrophils # (A) 14.3 k/uL (1.3-7.7); Neutrophils % (A) 94 %; Platelet Count 139 k/uL (150-450); Poikilocytosis Slight; RBC 2.17 m/uL (4.30-5.90); WBC 15.3 k/uL (3.8-10.6)
[2020-07-27 05:35] LABS: HGB 6.9 gm/dL (13.0-17.5)
[2020-07-27 05:44] LABS: Calcium 7.5 mg/dL (8.4-10.2); Magnesium 2.7 mg/dL (1.6-2.3); Phosphorus 4.5 mg/dL (2.5-4.5); Potassium 4.4 mmol/L (3.5-5.1)
--- NOTE | 2020-07-27 06:56 | P.PN ---
Subjective Progress Note Date: 07/27/20 80-year-old male patient postoperative bypass surgery. Postop day number #6. The patient underwent bypass surgery. The patient remains extubated on 3 L of oxygen by nasal cannula. Chest x-ray shows small right-sided pleural effusion. The patient is awake and alert. The patient is using incentive spirometer. The patient is able to sit up on a chair. He is feeling better on a daily basis. The patient is of coronary artery disease and previous stenting of her back in 2002. Patient has hyperlipidemia and hypothyroidism patient has undergone a partial thyroidectomy he had the patient is an ex-smoker. Mother with COPD with an FEV1 of 56% predicted with some bullous changes. The patient has diabetes mellitus type 2 with a preop hemoglobin A1c of 5.2. The patient is, stage III. The postoperative course was complicated by in acute blood loss anemia which is expected outcome of surgery and the patient also developed atrial fibrillation and other expected outcome of surgery. There was also some limited pneumomediastinum secondary to mediastinal tubes. The patient's currently is in normal sinus rhythm. He is using incentive spirometer.he is pulling approximately 500 on the incentive spirometer. No appreciated bronchospasm wheezing on today's evaluation. Chest x-ray shows small bilateral pleural effusion slightly worse on the right. The patient has no chest tubes at this point in time. He remains nature fibrillation with controlled rate. On 07/25, the patient is being seen in the follow-up. The patient is postop day #1 sought 8 cardiac surger2 following coronary artery bypass surgery. Events occurring yesterday were noted. The patient developed worsening abdominal pain and distention and following that the patient had a CAT scan of the abdomen that showed extensive portal venous air and intraluminal air along with dilated small bowel in the mid abdomen. Bowel gangrene an infarction was suspected. The patient also has a mild to moderate-sized right-sided pleural effusion and small pericardial effusion. The patient was taken to the operating room and the patient underwent a exploratory laparotomy for pneumatosis of the small bowel. The patient underwent small bowel resection. The patient was found to have dilated small bowel. The bowel was ischemic approximately 4 inches from the ileocecal valve. Bowel resection was done and following that the patient was kept intubated on mechanical ventilator and the patient was brought back to the ICU. At this point in time, the patient sedated with propofol and the patient currently intubated on a mechanical ventilator. Orogastric and orotracheal tube was placed. The patient also has a right IJ triple-lumen catheter. Patient is currently on no pressors. She had received some Varun-Synephrine and operating room. The patient is currently on AC and a rate of 14 and TV 600 PEEP 5 and FIO2 50%. Propofol at 10 mc/kg/min and the patient has been on LR at 125cc/hr. The patient is on IV zosyn as a broad- spectrum antibiotic coverage.the blood gases from this morning showed a pH of 7.4 with a pCO2 of 35 and pO2 of 74. Chest x-ray showing a right-sided pleural effusion. ET tube is in a good location. Lactated Ringer is down to 75 mL an hour. Urine output is ordered of 20-30 mL. on 07/26/2020, the patient is postop day #2 from his abdominal surgery and postop day #8 from his cardiac surgery. The patientis was resuscitated and the patient overall received a 3 L bolus yesterday and his net fluid balance is positive for liters over the past 24 hours. Hemoglobin is up to 6.4 and the patient will be receiving a unit of packed RBC. We do not think this is related to bleeding and probably this is dilutional. Meanwhile, the patient is sedated with propofol which is running at 35 mcg/kg per minute. The patient is well rested and comfortable. He is an assist-control mode rate of 14 with a total volume of 600 and FiO2 of 50% with a chief of 5. Chest x-ray shows small bilate ral pleural effusion slightly worse on the right. The blood. Shows pH of 7.37 with a pCO2 of 40 and pO2 of 112 and the necessity ventilator changes were done. Abdominal wound is dry clean and intact. No bowel sounds. Surgical wound site over the chest that is dry clean and intact. NG tube is in place. The patient is receiving TPN for nutritional support. IV fluids in the form of normal saline at the rate of 75 mL an hour. Urine output is in order of 30-40 mL an hour. No other significant issues otherwise. No pressors. A sedation holiday will be given and his underlying mental status will be assessed. Weaning parameters will be also assessed.he is currently off Varun-Synephrine. This was discontinued yesterday. On 07/27/2020, the patient is being seen for a follow-up. He is currently on Precedex which is running at 0.55 g per KG per minute. He is well sedated and he is arousable. He is postop day #3 following his abdominal surgery and postop day #9 following his cardiac surgery. He is still on a mechanical ventilator on assist control mode at the rate of 14 with a tidal volume of 500 and a FiO2 of 40% with a PEEP of 5. Chest x-ray showing cardiomegaly. ET tube is in a good location. ET tube is in place. The patient has small bilateral pleural effusions slightly worse on the right. No other acute abnormalities noted. Blood gases from today shows a pH of 7.35 with a pCO2 of 42 and pO2 of 92 on the above-mentioned vent setting. The patient received 2 units of packed RBC yesterday and hemoglobin today is up to 6.9. White blood count is down to 15.3 and the patient is afebrile. The patient is on no pressors for now. He was taken Varun-Synephrine which is currently off. The abdominal wound is dry clean and intact. The surgical wound over the sternum is dry clean and intact. He has a triple lumen catheter in his right IJ. He is on IV Zosyn and he is adequately recovered for now. Dilaudid for pain control. Fluid balance over the past 24 hours is positive for 4.6 L. He is taking TPN which is running at 60 and mother number and a normal saline is currently running at 20 mL an hour. Objective - Vital Signs Vital signs: Vital Signs Temp 96.1 F L 07/27/20 04:00 Pulse 65 07/27/20 06:00 Resp 22 07/27/20 06:00 BP 107/58 07/27/20 05:00 Pulse Ox 94 L 07/27/20 06:00 Intake & Output 07/26/20 07/26/20 07/27/20 06:59 18:59 06:59 Intake Total 9634.796 1805.516 1295.836 Output Total 930 985 915 Balance 810.740 907.516 380.836 Weight 109 kg Intake: IV 1185 1030 960 Mvi, Adult No.4 with Vit 360 480 720 K 10 ml Trace (Conc-1Ml/ Dose) 1 ml Sodium Chloride 2.5MEQ/ml Vial 15 meq Calcium Gluconate 1 gm Sodium Phosphate 15 mmol In Amino Acid 5%- D15w 1,000 ml @ 60 mls/hr IV .BY DURATION [facility] Rx#: [id number] Piperacillin-Tazobactam 3 200 .375 gm In Sodium Chloride 0.9% 100 ml @ 25 mls/hr IVPB Q8HR [facility] Rx# :[id number] Sodium Chloride 0.9% 1, 825 350 240 000 ml @ 20 mls/hr IV . Q24H [facility] Rx#:[id number] Intake, IV Titration 555.740 552.516 335.836 Amount Amiodarone 360 mg In 166.67 200 193.615 Dextrose 5% in Water 200 ml @ 0.5 MG/MIN 16.667 mls/hr IV .Q12H [facility] Rx#: [id number] Dexmedetomidine/0.9% NaCl 79.298 (Pmx) 400 mcg In Empty Bag 1 bag @ Titrate IV . Q0M [facility] Rx#:[id number] Insulin Regular 100 unit 22.472 62.923 In Sodium Chloride 0.9% 100 ml @ Per Protocol IV .Q0M [facility] Rx#:[id number] Phenylephrine 40 mg In 217.660 Sodium Chloride 0.9% 250 ml @ 0.5 MCG/KG/MIN 18. 669 mls/hr IV .[id number] [facility] Rx#:[id number] Piperacillin-Tazobactam 3 100 .375 gm In Sodium Chloride 0.9% 100 ml @ 25 mls/hr IVPB Q8HR [facility] Rx# :[id number] Sodium Chloride 0.9% 1, 75 000 ml @ 20 mls/hr IV . Q24H [facility] Rx#:[id number] propofoL 1,000 mg In 96.41 230.044 Empty Bag 1 bag @ Titrate IV .Q0M [facility] Rx#: [id number] Blood Product 310 Rc Irr As1 Unit 310 [id number] Output: Urine 930 985 915 Emesis 0 Other: Voiding Method Indwelling Catheter Indwelling Catheter Indwelling Catheter ABP, PAP, CO, CI - Last Documented Arterial Blood Pressure 101/50 Pulmonary Artery Pressure 33/14 Cardiac Output 6.7 Cardiac Index 3.1 - Exam Gen. appearance the patient is intubated, comfortable mechanical ventilator. Orogastric and orotracheal place. Head exam was generally normal. There was no scleral icterus or corneal arcus. Mucous membranes were moist. Neck was supple and without jugular venous distension, thyromegaly, or carotid bruits. Carotids were easily palpable bilaterally. There was no adenopathy. the patient has orogastric tube and orotracheal tube and the patient has a right IJ triple-lumen catheter Lungs sounds are diminished in the right lung base. Breath sounds are otherwise within normal limits. Sternum stable clean and intact. Cardiac exam revealed the PMI to be normally situated and sized. The rhythm was regular and no extrasystoles were noted during several minutes of auscultation. The first and second heart sounds were normal and physiologic splitting of the second heart sound was noted. There were no murmurs, rubs, clicks, or gallops. Abdomen is distended. Bowel sounds are hypoactive and nearly absent. Surgical wound site is dry. Overall. No direct tenderness. No rebound tenderness. No guarding. Normoactive. Examination of the extremities revealed easily palpable radial, femoral and pedal pulses. There was no cyanosis, clubbing or edema. Examination of the skin revealed no evidence of significant rashes, suspicious appearing nevi or other concerning lesions. Neurologically, the patient is awake and alert and the patient does not have any focal neurological deficit. Cranial nerves are essentially intact. - Labs CBC & Chem 7: 07/27/20 04:55 07/27/20 04:55 Labs: Abnormal Lab Results - Last 24 Hours (Table) 07/24/20 07/26/20 07/26/20 Range/Units 16:56 04:30 04:30 WBC (3.8-10.6) k/uL RBC (4.30-5.90) m/uL Hgb (13.0-17.5) gm/dL Hct (39.0-53.0) % RDW (11.5-15.5) % Plt Count (150-450) k/uL Neutrophils # (1.3-7.7) k/uL Neutrophils # (Manual) 18.10 H (1.3-7.7) k/uL Lymphocytes # (1.0-4.8) k/uL Lymphocytes # (Manual) 0.56 L (1.0-4.8) k/uL Metamyelocytes # (Man) 0.19 H (0) k/uL ABG O2 Saturation (94-97) % Sodium (137-145) mmol/L BUN (9-20) mg/dL Creatinine (0.66-1.25) mg/dL Glucose (74-99) mg/dL POC Glucose (mg/dL) (75-99) mg/dL Calcium (8.4-10.2) mg/dL Magnesium (1.6-2.3) mg/dL Iron 8 L (65-175) ug/dL TIBC 186 L (228-460) ug/dL % Saturation 4.30 L (15.00-50.00) Crossmatch See Detail 07/26/20 07/26/20 07/26/20 Range/Units 07:55 07:59 09:13 WBC (3.8-10.6) k/uL RBC (4.30-5.90) m/uL Hgb (13.0-17.5) gm/dL Hct (39.0-53.0) % RDW (11.5-15.5) % Plt Count (150-450) k/uL Neutrophils # (1.3-7.7) k/uL Neutrophils # (Manual) (1.3-7.7) k/uL Lymphocytes # (1.0-4.8) k/uL Lymphocytes # (Manual) (1.0-4.8) k/uL Metamyelocytes # (Man) (0) k/uL ABG O2 Saturation (94-97) % Sodium (137-145) mmol/L BUN (9-20) mg/dL Creatinine (0.66-1.25) mg/dL Glucose (74-99) mg/dL POC Glucose (mg/dL) 130 H 136 H 71 L (75-99) mg/dL Calcium (8.4-10.2) mg/dL Magnesium (1.6-2.3) mg/dL Iron (65-175) ug/dL TIBC (228-460) ug/dL % Saturation (15.00-50.00) Crossmatch 07/26/20 07/26/20 07/26/20 Range/Units 09:56 11:18 11:55 WBC (3.8-10.6) k/uL RBC (4.30-5.90) m/uL Hgb (13.0-17.5) gm/dL Hct (39.0-53.0) % RDW (11.5-15.5) % Plt Count (150-450) k/uL Neutrophils # (1.3-7.7) k/uL Neutrophils # (Manual) (1.3-7.7) k/uL Lymphocytes # (1.0-4.8) k/uL Lymphocytes # (Manual) (1.0-4.8) k/uL Metamyelocytes # (Man) (0) k/uL ABG O2 Saturation (94-97) % Sodium (137-145) mmol/L BUN (9-20) mg/dL Creatinine (0.66-1.25) mg/dL Glucose (74-99) mg/dL POC Glucose (mg/dL) 170 H 174 H 201 H (75-99) mg/dL Calcium (8.4-10.2) mg/dL Magnesium (1.6-2.3) mg/dL Iron (65-175) ug/dL TIBC (228-460) ug/dL % Saturation (15.00-50.00) Crossmatch 07/26/20 07/26/20 07/26/20 Range/Units 11:57 13:04 14:10 WBC 18.4 H (3.8-10.6) k/uL RBC 2.30 L (4.30-5.90) m/uL Hgb 7.4 L (13.0-17.5) gm/dL Hct 22.7 L (39.0-53.0) % RDW 16.4 H (11.5-15.5) % Plt Count 139 L (150-450) k/uL Neutrophils # (1.3-7.7) k/uL Neutrophils # (Manual) (1.3-7.7) k/uL Lymphocytes # (1.0-4.8) k/uL Lymphocytes # (Manual) (1.0-4.8) k/uL Metamyelocytes # (Man) (0) k/uL ABG O2 Saturation (94-97) % Sodium (137-145) mmol/L BUN (9-20) mg/dL Creatinine (0.66-1.25) mg/dL Glucose (74-99) mg/dL POC Glucose (mg/dL) 182 H 162 H (75-99) mg/dL Calcium (8.4-10.2) mg/dL Magnesium (1.6-2.3) mg/dL Iron (65-175) ug/dL TIBC (228-460) ug/dL % Saturation (15.00-50.00) Crossmatch 07/26/20 07/26/20 07/26/20 Range/Units 15:34 15:58 17:12 WBC (3.8-10.6) k/uL RBC (4.30-5.90) m/uL Hgb (13.0-17.5) gm/dL Hct (39.0-53.0) % RDW (11.5-15.5) % Plt Count (150-450) k/uL Neutrophils # (1.3-7.7) k/uL Neutrophils # (Manual) (1.3-7.7) k/uL Lymphocytes # (1.0-4.8) k/uL Lymphocytes # (Manual) (1.0-4.8) k/uL Metamyelocytes # (Man) (0) k/uL ABG O2 Saturation (94-97) % Sodium (137-145) mmol/L BUN (9-20) mg/dL Creatinine (0.66-1.25) mg/dL Glucose (74-99) mg/dL POC Glucose (mg/dL) 125 H 111 H 130 H (75-99) mg/dL Calcium (8.4-10.2) mg/dL Magnesium (1.6-2.3) mg/dL Iron (65-175) ug/dL TIBC (228-460) ug/dL % Saturation (15.00-50.00) Crossmatch 07/26/20 07/26/20 07/26/20 Range/Units 17:59 19:06 20:12 WBC (3.8-10.6) k/uL RBC (4.30-5.90) m/uL Hgb (13.0-17.5) gm/dL Hct (39.0-53.0) % RDW (11.5-15.5) % Plt Count (150-450) k/uL Neutrophils # (1.3-7.7) k/uL Neutrophils # (Manual) (1.3-7.7) k/uL Lymphocytes # (1.0-4.8) k/uL Lymphocytes # (Manual) (1.0-4.8) k/uL Metamyelocytes # (Man) (0) k/uL ABG O2 Saturation (94-97) % Sodium (137-145) mmol/L BUN (9-20) mg/dL Creatinine (0.66-1.25) mg/dL Glucose (74-99) mg/dL POC Glucose (mg/dL) 182 H 195 H 226 H (75-99) mg/dL Calcium (8.4-10.2) mg/dL Magnesium (1.6-2.3) mg/dL Iron (65-175) ug/dL TIBC (228-460) ug/dL % Saturation (15.00-50.00) Crossmatch 07/26/20 07/26/20 07/27/20 Range/Units 21:47 23:39 00:31 WBC (3.8-10.6) k/uL RBC (4.30-5.90) m/uL Hgb (13.0-17.5) gm/dL Hct (39.0-53.0) % RDW (11.5-15.5) % Plt Count (150-450) k/uL Neutrophils # (1.3-7.7) k/uL Neutrophils # (Manual) (1.3-7.7) k/uL Lymphocytes # (1.0-4.8) k/uL Lymphocytes # (Manual) (1.0-4.8) k/uL Metamyelocytes # (Man) (0) k/uL ABG O2 Saturation (94-97) % Sodium (137-145) mmol/L BUN (9-20) mg/dL Creatinine (0.66-1.25) mg/dL Glucose (74-99) mg/dL POC Glucose (mg/dL) 220 H 179 H 186 H (75-99) mg/dL Calcium (8.4-10.2) mg/dL Magnesium (1.6-2.3) mg/dL Iron (65-175) ug/dL TIBC (228-460) ug/dL % Saturation (15.00-50.00) Crossmatch 07/27/20 07/27/20 07/27/20 Range/Units 02:52 04:48 04:50 WBC (3.8-10.6) k/uL RBC (4.30-5.90) m/uL Hgb (13.0-17.5) gm/dL Hct (39.0-53.0) % RDW (11.5-15.5) % Plt Count (150-450) k/uL Neutrophils # (1.3-7.7) k/uL Neutrophils # (Manual) (1.3-7.7) k/uL Lymphocytes # (1.0-4.8) k/uL Lymphocytes # (Manual) (1.0-4.8) k/uL Metamyelocytes # (Man) (0) k/uL ABG O2 Saturation 98.3 H (94-97) % Sodium (137-145) mmol/L BUN (9-20) mg/dL Creatinine (0.66-1.25) mg/dL Glucose (74-99) mg/dL POC Glucose (mg/dL) 171 H 153 H (75-99) mg/dL Calcium (8.4-10.2) mg/dL Magnesium (1.6-2.3) mg/dL Iron (65-175) ug/dL TIBC (228-460) ug/dL % Saturation (15.00-50.00) Crossmatch 07/27/20 07/27/20 Range/Units 04:55 04:55 WBC 15.3 H (3.8-10.6) k/uL RBC 2.17 L (4.30-5.90) m/uL Hgb 6.9 L* (13.0-17.5) gm/dL Hct 21.3 L (39.0-53.0) % RDW 17.0 H (11.5-15.5) % Plt Count 139 L (150-450) k/uL Neutrophils # 14.3 H (1.3-7.7) k/uL Neutrophils # (Manual) (1.3-7.7) k/uL Lymphocytes # 0.3 L (1.0-4.8) k/uL Lymphocytes # (Manual) (1.0-4.8) k/uL Metamyelocytes # (Man) (0) k/uL ABG O2 Saturation (94-97) % Sodium 130 L (137-145) mmol/L BUN 73 H (9-20) mg/dL Creatinine 2.00 H (0.66-1.25) mg/dL Glucose 139 H (74-99) mg/dL POC Glucose (mg/dL) (75-99) mg/dL Calcium 7.5 L (8.4-10.2) mg/dL Magnesium 2.7 H (1.6-2.3) mg/dL Iron (65-175) ug/dL TIBC (228-460) ug/dL % Saturation (15.00-50.00) Crossmatch Microbiology - Last 24 Hours (Table) 07/24/20 19:03 Gram Stain - Preliminary Sputum Sputum Culture - Preliminary Gram Neg Bacilli Assessment and Plan Plan: 1 Symptomatic coronary artery disease, status post two-vessel coronary artery bypass grafting with PABLO to the LAD, SVG to the PDA, postoperative day #9 2 Postoperative atrial fibrillation with rapid ventricular response requiring amiodarone and Metoprolol and he is currently off anticagulation due to the s urgical intervention as mentioned above, and the patient continues to be in atrial fibrillation, the patient is currently on amiodarone 0.5 mg per minute continuous infusion.the patient remains on no anticoagulation for now.patient remains in normal sinus rhythm. 3 acute ischemic small bowel, pneumatosis the patient is fourth. Laparotomy and small bowel resection. The patient is postop day #3, the patient is receiving TPN for nutritional support. 4 acute hypoxic respiratory failure following bowel surgery. The patient was kept on mechanical ventilator since yesterday. Chest x-ray was noted and the patient is a small to moderate-sized right-sided pleural effusion. Blood gases was noted. 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 12 History of hypertension 13 History of hyperlipidemia 14 leukocytosis which is expected reactive leukocytosis, white cell count is at increased Plan: Continue NSS at the rate of 20 mL an hour TPN for nutritional support Chest x-ray and labs reviewed Continue vent support andno changes for today Sedation holiday this morning and check weaning parameters, the patient will be gradually weaned off the Precedex and his mental status will be assessed and his weaning parameters will be assessed. Continue IV Zosyn Continue bronchodilators Hold anticoagulation with Eliquis and discussed with surgery is appropriate timing of initiation of anticoagulation Lovenox 40 mg subcu for DVT prophylaxis as long as surgery is agreeable to that. suggestive 40 mg IV push 1 We will continue to follow and make further recommendations based on his clinical stat CC evaluation more than 30 min Time with Patient: Greater than 30
--- NOTE | 2020-07-27 07:27 | XR ---
EXAMINATION TYPE: XR chest 1V portable DATE OF EXAM: 07/27/2020 COMPARISON: 07/26/2020 INDICATION: Tube placement TECHNIQUE: Single frontal view of the chest is obtained. FINDINGS: The heart size is mildly prominent. The pulmonary vasculature is normal. Bibasilar infiltrates are present. Small left pleural effusion is not excluded. Endotracheal tube tip is above the mickey. Nasogastric tube transverses the thorax. Right central mike ous catheter tip is within the right atrium IMPRESSION: 1. Lines and catheters discussed above. 2. Bibasilar infiltrates and small left pleural effusion increasing from comparison.
[2020-07-27] MEDS: FORMOTEROL FUMARATE 20 MCG/2 ML NEBU INHALATION SCH ×2 (07:31→19:25)
[2020-07-27] MEDS: IPRATROPIUM-ALBUTEROL 3 ML NEB INHALATION SCH ×4 (07:31→19:25)
[2020-07-27] MEDS: BUDESONIDE 1 MG/2 ML NEBU INHALATION SCH ×2 (07:31→19:25)
[2020-07-27 07:34] LABS: Glucose,Whole Blood 131 mg/dL (75-99)
[2020-07-27] MEDS: INSULIN REGULAR 100 UNIT in SODIUM CHLORIDE 0.9% 100 ML IV SCH ×2 (07:38→13:43)
[2020-07-27] MEDS ORDERED: FUROSEMIDE 10 MG/ML 4 ML VIAL IV STA (07:57)
--- NOTE | 2020-07-27 08:28 | P.PN ---
Subjective Progress Note Date: 07/27/20 Principal diagnosis: Symptomatic triple-vessel coronary artery disease, mild left ventricular dysfunction. Previuos medical history of stenting to his right coronary artery in 2002, hypertension, hyperlipidemia, hypothyroid status post partial thyroidectomy, previous tobacco dependence quit smoking 20 years ago, moderate chronic obstructive pulmonary disease with preoperative FEV1 of 56% of predicted value, bullous emphysema, remote history of pneumonia, type 2 diabetes mellitus with a preoperative hemoglobin A1c of 5.2%, chronic kidney disease stage III with a baseline creatinine of 1.4-1.5, family history of premature coronary artery disease with brother having had CABG at less than 50 years old. POD #9 double coronary artery bypass grafting using the left internal mammary artery to left anterior descending coronary artery, reverse greater saphenous vein graft from the aorta to the posterior descending coronary artery. Exclusion of the left atrial appendage using a 35 mm Atriclip, endoscopic harvesting of the right greater saphenous vein from the groin to above the ankle level, graft flow measurement using the e-Zassi system, intraoperative transesophageal echocardiogram and epi-aortic scanning. Postoperative acute blood loss anemia, expected outcome from hemodilution and cardiopulmonary bypass. Postoperative paroxysmal atrial fibrillation, unexpected but common outcome after open heart surgery. Pneumoperitoneum, unexpected Acute on chronic kidney disease secondary to ATN Pneumatosis of the small bowel POD #3 small bowel resection Patient's currently laying in the intensive care unit sedated on mechanical ventilation. Remains in sinus rhythm, hemodynamically stable on no pressors. Sedated with propofol, wakes up and follows commands. NG tube in place to low intermittent suction with minimal greenish fluid, hypoactive bowel sounds upper quadrants. Abdomen is soft, less distended. Remains on IV amio, zosyn. Received 3 liters fluid yesterday, positive 1.2 liters fluid. Hemaglobin 6.4 yesterday, received 1 unit PRBCs followed by hgb 7.4. This morning hgb 6.9, no evidence of active bleeding. Objective - Vital Signs Vital signs: Vital Signs Temp 96.1 F L 07/27/20 04:00 Pulse 69 07/27/20 07:53 Resp 21 07/27/20 07:00 BP 107/58 07/27/20 05:00 Pulse Ox 96 07/27/20 07:00 Intake & Output 07/26/20 07/27/20 07/27/20 18:59 06:59 18:59 Intake Total 8950.263 4893.836 95.605 Output Total 985 915 35 Balance 907.516 380.836 60.605 Weight 113.7 kg Intake: IV 1030 960 80 Mvi, Adult No.4 with Vit 480 720 60 K 10 ml Trace (Conc-1Ml/ Dose) 1 ml Sodium Chloride 2.5MEQ/ml Vial 15 meq Calcium Gluconate 1 gm Sodium Phosphate 15 mmol In Amino Acid 5%- D15w 1,000 ml @ 60 mls/hr IV .BY D[facility]ATION [facility] Rx#: [id number] Piperacillin-Tazobactam 3 200 .375 gm In Sodium Chloride 0.9% 100 ml @ 25 mls/hr IVPB Q8HR [facility] Rx# :[id number] Sodium Chloride 0.9% 1, 350 240 20 000 ml @ 20 mls/hr IV . Q24H [facility] Rx#:[id number] Intake, IV Titration 552.516 335.836 15.605 Amount Amiodarone 360 mg In 200 193.615 Dextrose 5% in Water 200 ml @ 0.5 MG/MIN 16.667 mls/hr IV .Q12H [facility] Rx#: [id number] Dexmedetomidine/0.9% NaCl 79.298 (Pmx) 400 mcg In Empty Bag 1 bag @ Titrate IV . Q0M [facility] Rx#:[id number] Insulin Regular 100 unit 22.472 62.923 15.605 In Sodium Chloride 0.9% 100 ml @ Per Protocol IV .Q0M [facility] Rx#:[id number] Piperacillin-Tazobactam 3 100 .375 gm In Sodium Chloride 0.9% 100 ml @ 25 mls/hr IVPB Q8HR [facility] Rx# :[id number] propofoL 1,000 mg In 230.044 Empty Bag 1 bag @ Titrate IV .Q0M [facility] Rx#: [id number] Blood Product 310 Rc Irr As1 Unit 310 [id number] Output: Urine 985 915 35 Emesis 0 Other: Voiding Method Indwelling Catheter Indwelling Catheter ABP, PAP, CO, CI - Last Documented Arterial Blood Pressure 107/45 Pulmonary Artery Pressure 33/14 Cardiac Output 6.7 Cardiac Index 3.1 - Constitutional General appearance: Present: cooperative, no acute distress, obese - Respiratory Details: Lungs sounds diminished bilaterally with coarse breath sounds in the bases. Respirations even, non-labored on mechanical ventilation. Currently current settings FiO2 40%, tidal volume 500, respiratory rate 14, PEEP 5. ABGs this morning on those settings 7.35/42/92/23/98%/-2.6 on those settings. 7.5 ET tube present, 23 at the lip - Cardiovascular Details: S1, S2 present. Regular rate and rhythm, normal sinus rhythm on telemetry with rate in the 60s. Sternum stable. Palpable peripheral pulses bilaterally. Generalized generalized edema present. Heart hugger, antiembolism stockings, SCDs present. Right internal jugular triple-lumen central line, right femoral arterial line present. - Gastrointestinal Gastrointestinal Comment(s): Abdomen soft, tender to palpation, slightly distended. Positive bowel sounds upper quadrants. NG tube present to low intermittent suction with minimal amount green drainage - Genitourinary Genitourinary Comment(s): Villafana catheter present draining clear, yellow urine. Output 35-60 mL/h overni ght, 1275 mL in the last 24 hours - Integumentary Integumentary Comment(s): Skin is warm and dry with evidence of good perfusion. Anterior chest incision well approximated and covered with dry intact dressing. Right lower extremity EVH site well approximated. Mid abdominal incision well approximated and covered with dry intact dressing, old drainage present, nothing new - Musculoskeletal Musculoskeletal: Present: strength equal bilaterally - Psychiatric Psychiatric Comment(s): mechanicaly sedated but follows commands, opens eyes - Allied health notes Allied health notes reviewed: nursing - Labs CBC & Chem 7: 07/27/20 04:55 07/27/20 04:55 Labs: Abnormal Lab Results - Last 24 Hours (Table) 07/24/20 07/26/20 07/26/20 Range/Units 16:56 04:30 09:13 WBC (3.8-10.6) k/uL RBC (4.30-5.90) m/uL Hgb (13.0-17.5) gm/dL Hct (39.0-53.0) % RDW (11.5-15.5) % Plt Count (150-450) k/uL Neutrophils # (1.3-7.7) k/uL Lymphocytes # (1.0-4.8) k/uL ABG O2 Saturation (94-97) % Sodium (137-145) mmol/L BUN (9-20) mg/dL Creatinine (0.66-1.25) mg/dL Glucose (74-99) mg/dL POC Glucose (mg/dL) 71 L (75-99) mg/dL Calcium (8.4-10.2) mg/dL Magnesium (1.6-2.3) mg/dL Iron 8 L (65-175) ug/dL TIBC 186 L (228-460) ug/dL % Saturation 4.30 L (15.00-50.00) Crossmatch See Detail 07/26/20 07/26/20 07/26/20 Range/Units 09:56 11:18 11:55 WBC (3.8-10.6) k/uL RBC (4.30-5.90) m/uL Hgb (13.0-17.5) gm/dL Hct (39.0-53.0) % RDW (11.5-15.5) % Plt Count (150-450) k/uL Neutrophils # (1.3-7.7) k/uL Lymphocytes # (1.0-4.8) k/uL ABG O2 Saturation (94-97) % Sodium (137-145) mmol/L BUN (9-20) mg/dL Creatinine (0.66-1.25) mg/dL Glucose (74-99) mg/dL POC Glucose (mg/dL) 170 H 174 H 201 H (75-99) mg/dL Calcium (8.4-10.2) mg/dL Magnesium (1.6-2.3) mg/dL Iron (65-175) ug/dL TIBC (228-460) ug/dL % Saturation (15.00-50.00) Crossmatch 07/26/20 07/26/20 07/26/20 Range/Units 11:57 13:04 14:10 WBC 18.4 H (3.8-10.6) k/uL RBC 2.30 L (4.30-5.90) m/uL Hgb 7.4 L (13.0-17.5) gm/dL Hct 22.7 L (39.0-53.0) % RDW 16.4 H (11.5-15.5) % Plt Count 139 L (150-450) k/uL Neutrophils # (1.3-7.7) k/uL Lymphocytes # (1.0-4.8) k/uL ABG O2 Saturation (94-97) % Sodium (137-145) mmol/L BUN (9-20) mg/dL Creatinine (0.66-1.25) mg/dL Glucose (74-99) mg/dL POC Glucose (mg/dL) 182 H 162 H (75-99) mg/dL Calcium (8.4-10.2) mg/dL Magnesium (1.6-2.3) mg/dL Iron (65-175) ug/dL TIBC (228-460) ug/dL % Saturation (15.00-50.00) Crossmatch 07/26/20 07/26/20 07/26/20 Range/Units 15:34 15:58 17:12 WBC (3.8-10.6) k/uL RBC (4.30-5.90) m/uL Hgb (13.0-17.5) gm/dL Hct (39.0-53.0) % RDW (11.5-15.5) % Plt Count (150-450) k/uL Neutrophils # (1.3-7.7) k/uL Lymphocytes # (1.0-4.8) k/uL ABG O2 Saturation (94-97) % Sodium (137-145) mmol/L BUN (9-20) mg/dL Creatinine (0.66-1.25) mg/dL Glucose (74-99) mg/dL POC Glucose (mg/dL) 125 H 111 H 130 H (75-99) mg/dL Calcium (8.4-10.2) mg/dL Magnesium (1.6-2.3) mg/dL Iron (65-175) ug/dL TIBC (228-460) ug/dL % Saturation (15.00-50.00) Crossmatch 07/26/20 07/26/20 07/26/20 Range/Units 17:59 19:06 20:12 WBC (3.8-10.6) k/uL RBC (4.30-5.90) m/uL Hgb (13.0-17.5) gm/dL Hct (39.0-53.0) % RDW (11.5-15.5) % Plt Count (150-450) k/uL Neutrophils # (1.3-7.7) k/uL Lymphocytes # (1.0-4.8) k/uL ABG O2 Saturation (94-97) % Sodium (137-145) mmol/L BUN (9-20) mg/dL Creatinine (0.66-1.25) mg/dL Glucose (74-99) mg/dL POC Glucose (mg/dL) 182 H 195 H 226 H (75-99) mg/dL Calcium (8.4-10.2) mg/dL Magnesium (1.6-2.3) mg/dL Iron (65-175) ug/dL TIBC (228-460) ug/dL % Saturation (15.00-50.00) Crossmatch 07/26/20 07/26/20 07/27/20 Range/Units 21:47 23:39 00:31 WBC (3.8-10.6) k/uL RBC (4.30-5.90) m/uL Hgb (13.0-17.5) gm/dL Hct (39.0-53.0) % RDW (11.5-15.5) % Plt Count (150-450) k/uL Neutrophils # (1.3-7.7) k/uL Lymphocytes # (1.0-4.8) k/uL ABG O2 Saturation (94-97) % Sodium (137-145) mmol/L BUN (9-20) mg/dL Creatinine (0.66-1.25) mg/dL Glucose (74-99) mg/dL POC Glucose (mg/dL) 220 H 179 H 186 H (75-99) mg/dL Calcium (8.4-10.2) mg/dL Magnesium (1.6-2.3) mg/dL Iron (65-175) ug/dL TIBC (228-460) ug/dL % Saturation (15.00-50.00) Crossmatch 07/27/20 07/27/20 07/27/20 Range/Units 02:52 04:48 04:50 WBC (3.8-10.6) k/uL RBC (4.30-5.90) m/uL Hgb (13.0-17.5) gm/dL Hct (39.0-53.0) % RDW (11.5-15.5) % Plt Count (150-450) k/uL Neutrophils # (1.3-7.7) k/uL Lymphocytes # (1.0-4.8) k/uL ABG O2 Saturation 98.3 H (94-97) % Sodium (137-145) mmol/L BUN (9-20) mg/dL Creatinine (0.66-1.25) mg/dL Glucose (74-99) mg/dL POC Glucose (mg/dL) 171 H 153 H (75-99) mg/dL Calcium (8.4-10.2) mg/dL Magnesium (1.6-2.3) mg/dL Iron (65-175) ug/dL TIBC (228-460) ug/dL % Saturation (15.00-50.00) Crossmatch 07/27/20 07/27/20 07/27/20 Range/Units 04:55 04:55 07:24 WBC 15.3 H (3.8-10.6) k/uL RBC 2.17 L (4.30-5.90) m/uL Hgb 6.9 L* (13.0-17.5) gm/dL Hct 21.3 L (39.0-53.0) % RDW 17.0 H (11.5-15.5) % Plt Count 139 L (150-450) k/uL Neutrophils # 14.3 H (1.3-7.7) k/uL Lymphocytes # 0.3 L (1.0-4.8) k/uL ABG O2 Saturation (94-97) % Sodium 130 L (137-145) mmol/L BUN 73 H (9-20) mg/dL Creatinine 2.00 H (0.66-1.25) mg/dL Glucose 139 H (74-99) mg/dL POC Glucose (mg/dL) 131 H (75-99) mg/dL Calcium 7.5 L (8.4-10.2) mg/dL Magnesium 2.7 H (1.6-2.3) mg/dL Iron (65-175) ug/dL TIBC (228-460) ug/dL % Saturation (15.00-50.00) Crossmatch Microbiology - Last 24 Hours (Table) 07/24/20 19:03 Gram Stain - Preliminary Sputum Sputum Culture - Preliminary Gram Neg Bacilli - Imaging and Cardiology Chest x-ray: report reviewed, image reviewed Assessment and Plan Assessment: 1. Symptomatic triple-vessel coronary artery disease, status post 2 vessel CABG 2. Mild left ventricular dysfunction 3. Previuos history of stenting to his right coronary artery in 2002 4. Hypertension 5. Hyperlipidemia 6. Hypothyroid status post partial thyroidectomy 7. Previous tobacco dependence with bullous emphysema 8. Moderate chronic obstructive pulmonary disease with preoperative FEV1 of 56% of predicted value 9. Remote history of pneumonia 10. Type 2 diabetes mellitus with a preoperative hemoglobin A1c of 5.2% 11. Chronic kidney disease stage III with a baseline creatinine of 1.4-1.5 12. Family history of premature coronary artery disease with brother having had CABG at less than 50 years old 13. Postoperative acute blood loss anemia, expected outcome 14. Postoperative paroxysmal atrial fibrillation, unexpected, status post exclusion of the left atrial appendage 15. Pneumoperitoneum, unexpected 16. Acute on chronic kidney disease with hyponatremia, hyperkalemia 17. Pneumatosis of the small bowel, status post small bowel resection Plan: 1. Continue low dose aspirin, low-dose beta apolinar 2. Continue IV amiodarone for afib. Will restart anticoagulation when able 3. Ventilator management per combination saw operator. Bronchodilators per pulmonology management. Continue IV Zosyn. Sedation switched to precedex 4. Will monitor daily labs and chest x-rays. Will transfuse 1 unit prbcs followed by 40 mg IV lasix 5. GI/DVT prophylaxis. 6. Pain control with current medication regimen. 7. Insulin management per Dr. Polk 8. Continue TPN per RD. Will start elemental trickle tube feedings for gut integrity 9. Nephrology following. Avoid nephrotoxic agents 10. Strict accurate intake and output, daily weight 11. More recommendations to follow based on patient's clinical course. Time with Patient: Greater than 30
[2020-07-27] MEDS: 1: MVI, ADULT NO.4 WITH VIT K 10 ML, TRACE (CONC-1ML/DOSE) 1 ML, SODIUM CHLORIDE 2.5MEQ/ IV SCH ×6 (08:48)
[2020-07-27] MEDS: AMIODARONE 300 MG in DEXTROSE 5% IN WATER 250 ML IV SCH ×4 (08:48→21:49)
[2020-07-27 09:01] LABS: Glucose,Whole Blood 91 mg/dL (75-99)
--- NOTE | 2020-07-27 09:38 | PN ---
PROGRESS NOTE Mr. Tinoco is status post bowel resection for gangrenous small bowel and also bypass surgery. He is still on a vent. His remains in sinus rhythm on amiodarone drip, hemodynamically stable, making a reasonable amount of urine. Vitals are stable. S1-S2 heard normally, short systolic murmur noted. Lungs reveal diminished air entry. Abdomen and lower extremity exam were not performed. I am recommending we decrease amiodarone from 0.5-0.25 mg/hour and hopefully we can resume anticoagulation when okayed by Dr. Dempsey. Prognosis remains guarded. MMODL / IJN: [id number] /
[2020-07-27] MEDS ORDERED: DEXTROSE 50% SYRINGE 50 ML IVP ONE (10:23)
[2020-07-27 10:29] LABS: Glucose,Whole Blood 51 mg/dL (75-99)
[2020-07-27] MEDS: PIPERACILLIN-TAZOBACTAM 3.375 GM in SODIUM CHLORIDE 0.9% 100 ML IVPB SCH ×3 (10:32→23:10)
[2020-07-27] MEDS: PANTOPRAZOLE 40 MG/10 ML VIAL IVP SCH ×2 (10:33→20:30)
[2020-07-27] MEDS: HEPARIN SODIUM,PORCINE 5,000 UNIT/ML 1 ML VIAL SQ SCH ×3 (10:33→23:10)
[2020-07-27] MEDS: METOPROLOL TARTRATE 12.5 MG TAB NG-TUBE SCH ×2 (10:33→20:32)
[2020-07-27] MEDS: CHLORHEXIDINE GLUCONATE 15 ML CUP MUCOUS MEM SCH ×2 (10:33→20:31)
[2020-07-27] MEDS: LEVOTHYROXINE IVP 100 MCG/5 ML VIAL IV SCH (10:33)
[2020-07-27] MEDS: ASPIRIN 81 MG PO SCH (10:34)
[2020-07-27 10:41] LABS: Glucose,Whole Blood 77 mg/dL (75-99)
[2020-07-27 11:22] LABS: Glucose,Whole Blood 227 mg/dL (75-99)
--- NOTE | 2020-07-27 11:29 | P.PN ---
Subjective Progress Note Date: 07/27/20 Pt still borderline hypotensive, sugars have been labile. Pt growing Pseudomonas spp in the sputum, also with polymicrobial gram stain; appears to be GI source. Objective - Vital Signs Vital signs: Vital Signs Temp 96.0 F L 07/27/20 10:30 Pulse 68 07/27/20 11:03 Resp 17 07/27/20 11:00 BP 94/42 07/27/20 10:30 Pulse Ox 100 07/27/20 11:00 Intake & Output 07/26/20 07/27/20 07/27/20 18:59 06:59 18:59 Intake Total 1870.398 1184.836 627.988 Output Total 985 915 285 Balance 907.516 380.836 342.988 Weight 113.7 kg Intake: IV 1030 960 504 Mvi, Adult No.4 with Vit 480 720 300 K 10 ml Trace (Conc-1Ml/ Dose) 1 ml Sodium Chloride 2.5MEQ/ml Vial 15 meq Calcium Gluconate 1 gm Sodium Phosphate 15 mmol In Amino Acid 5%- D15w 1,000 ml @ 60 mls/hr IV .BY DURATION [facility] Rx#: [id number] Piperacillin-Tazobactam 3 200 100 .375 gm In Sodium Chloride 0.9% 100 ml @ 25 mls/hr IVPB Q8HR [facility] Rx# :[id number] Sodium Chloride 0.9% 1, 350 240 80 000 ml @ 20 mls/hr IV . Q24H [facility] Rx#:[id number] pressure bag 24 Intake, IV Titration 552.516 335.836 123.988 Amount Amiodarone 360 mg In 200 193.615 Dextrose 5% in Water 200 ml @ 0.5 MG/MIN 16.667 mls/hr IV .Q12H [facility] Rx#: [id number] Dexmedetomidine/0.9% NaCl 79.298 100 (Pmx) 400 mcg In Empty Bag 1 bag @ Titrate IV . Q0M [facility] Rx#:[id number] Insulin Regular 100 unit 22.472 62.923 23.988 In Sodium Chloride 0.9% 100 ml @ Per Protocol IV .Q0M [facility] Rx#:[id number] Piperacillin-Tazobactam 3 100 .375 gm In Sodium Chloride 0.9% 100 ml @ 25 mls/hr IVPB Q8HR [facility] Rx# :[id number] propofoL 1,000 mg In 230.044 Empty Bag 1 bag @ Titrate IV .Q0M [facility] Rx#: [id number] Blood Product 310 0 Rc As-1 Unit 0 [id number] Rc Irr As1 Unit 310 [id number] Output: Urine 985 915 285 Emesis 0 Other: Voiding Method Indwelling Catheter Indwelling Catheter ABP, PAP, CO, CI - Last Documented Arterial Blood Pressure 91/42 Pulmonary Artery Pressure 33/14 Cardiac Output 6.7 Cardiac Index 3.1 - Exam Gen: intubated, sedated HEENT: normocephalic, atraumatic, moist mucous membranes Resp: Vented: TV 600, RR 14, PEEP 5, FiO2 50% CVS: good distal perfusion x 4, RRR, no murmurs, clicks, gallops GI: soft, NTTP, ND : no SPT, no CVAT, malagon catheter is present MSK: + pitting edema, no clubbing Neuro: non-focal, no sensory deficits, appropriate tone - Labs CBC & Chem 7: 07/27/20 04:55 07/27/20 04:55 Labs: Abnormal Lab Results - Last 24 Hours (Table) 07/24/20 07/26/20 07/26/20 Range/Units 16:56 04:30 11:55 WBC (3.8-10.6) k/uL RBC (4.30-5.90) m/uL Hgb (13.0-17.5) gm/dL Hct (39.0-53.0) % RDW (11.5-15.5) % Plt Count (150-450) k/uL Neutrophils # (1.3-7.7) k/uL Lymphocytes # (1.0-4.8) k/uL ABG O2 Saturation (94-97) % Sodium (137-145) mmol/L BUN (9-20) mg/dL Creatinine (0.66-1.25) mg/dL Glucose (74-99) mg/dL POC Glucose (mg/dL) 201 H (75-99) mg/dL Calcium (8.4-10.2) mg/dL Magnesium (1.6-2.3) mg/dL Iron 8 L (65-175) ug/dL TIBC 186 L (228-460) ug/dL % Saturation 4.30 L (15.00-50.00) Crossmatch See Detail 07/26/20 07/26/20 07/26/20 Range/Units 11:57 13:04 14:10 WBC 18.4 H (3.8-10.6) k/uL RBC 2.30 L (4.30-5.90) m/uL Hgb 7.4 L (13.0-17.5) gm/dL Hct 22.7 L (39.0-53.0) % RDW 16.4 H (11.5-15.5) % Plt Count 139 L (150-450) k/uL Neutrophils # (1.3-7.7) k/uL Lymphocytes # (1.0-4.8) k/uL ABG O2 Saturation (94-97) % Sodium (137-145) mmol/L BUN (9-20) mg/dL Creatinine (0.66-1.25) mg/dL Glucose (74-99) mg/dL POC Glucose (mg/dL) 182 H 162 H (75-99) mg/dL Calcium (8.4-10.2) mg/dL Magnesium (1.6-2.3) mg/dL Iron (65-175) ug/dL TIBC (228-460) ug/dL % Saturation (15.00-50.00) Crossmatch 07/26/20 07/26/20 07/26/20 Range/Units 15:34 15:58 17:12 WBC (3.8-10.6) k/uL RBC (4.30-5.90) m/uL Hgb (13.0-17.5) gm/dL Hct (39.0-53.0) % RDW (11.5-15.5) % Plt Count (150-450) k/uL Neutrophils # (1.3-7.7) k/uL Lymphocytes # (1.0-4.8) k/uL ABG O2 Saturation (94-97) % Sodium (137-145) mmol/L BUN (9-20) mg/dL Creatinine (0.66-1.25) mg/dL Glucose (74-99) mg/dL POC Glucose (mg/dL) 125 H 111 H 130 H (75-99) mg/dL Calcium (8.4-10.2) mg/dL Magnesium (1.6-2.3) mg/dL Iron (65-175) ug/dL TIBC (228-460) ug/dL % Saturation (15.00-50.00) Crossmatch 07/26/20 07/26/20 07/26/20 Range/Units 17:59 19:06 20:12 WBC (3.8-10.6) k/uL RBC (4.30-5.90) m/uL Hgb (13.0-17.5) gm/dL Hct (39.0-53.0) % RDW (11.5-15.5) % Plt Count (150-450) k/uL Neutrophils # (1.3-7.7) k/uL Lymphocytes # (1.0-4.8) k/uL ABG O2 Saturation (94-97) % Sodium (137-145) mmol/L BUN (9-20) mg/dL Creatinine (0.66-1.25) mg/dL Glucose (74-99) mg/dL POC Glucose (mg/dL) 182 H 195 H 226 H (75-99) mg/dL Calcium (8.4-10.2) mg/dL Magnesium (1.6-2.3) mg/dL Iron (65-175) ug/dL TIBC (228-460) ug/dL % Saturation (15.00-50.00) Crossmatch 07/26/20 07/26/20 07/27/20 Range/Units 21:47 23:39 00:31 WBC (3.8-10.6) k/uL RBC (4.30-5.90) m/uL Hgb (13.0-17.5) gm/dL Hct (39.0-53.0) % RDW (11.5-15.5) % Plt Count (150-450) k/uL Neutrophils # (1.3-7.7) k/uL Lymphocytes # (1.0-4.8) k/uL ABG O2 Saturation (94-97) % Sodium (137-145) mmol/L BUN (9-20) mg/dL Creatinine (0.66-1.25) mg/dL Glucose (74-99) mg/dL POC Glucose (mg/dL) 220 H 179 H 186 H (75-99) mg/dL Calcium (8.4-10.2) mg/dL Magnesium (1.6-2.3) mg/dL Iron (65-175) ug/dL TIBC (228-460) ug/dL % Saturation (15.00-50.00) Crossmatch 07/27/20 07/27/20 07/27/20 Range/Units 02:52 04:48 04:50 WBC (3.8-10.6) k/uL RBC (4.30-5.90) m/uL Hgb (13.0-17.5) gm/dL Hct (39.0-53.0) % RDW (11.5-15.5) % Plt Count (150-450) k/uL Neutrophils # (1.3-7.7) k/uL Lymphocytes # (1.0-4.8) k/uL ABG O2 Saturation 98.3 H (94-97) % Sodium (137-145) mmol/L BUN (9-20) mg/dL Creatinine (0.66-1.25) mg/dL Glucose (74-99) mg/dL POC Glucose (mg/dL) 171 H 153 H (75-99) mg/dL Calcium (8.4-10.2) mg/dL Magnesium (1.6-2.3) mg/dL Iron (65-175) ug/dL TIBC (228-460) ug/dL % Saturation (15.00-50.00) Crossmatch 07/27/20 07/27/20 07/27/20 Range/Units 04:55 04:55 07:24 WBC 15.3 H (3.8-10.6) k/uL RBC 2.17 L (4.30-5.90) m/uL Hgb 6.9 L* (13.0-17.5) gm/dL Hct 21.3 L (39.0-53.0) % RDW 17.0 H (11.5-15.5) % Plt Count 139 L (150-450) k/uL Neutrophils # 14.3 H (1.3-7.7) k/uL Lymphocytes # 0.3 L (1.0-4.8) k/uL ABG O2 Saturation (94-97) % Sodium 130 L (137-145) mmol/L BUN 73 H (9-20) mg/dL Creatinine 2.00 H (0.66-1.25) mg/dL Glucose 139 H (74-99) mg/dL POC Glucose (mg/dL) 131 H (75-99) mg/dL Calcium 7.5 L (8.4-10.2) mg/dL Magnesium 2.7 H (1.6-2.3) mg/dL Iron (65-175) ug/dL TIBC (228-460) ug/dL % Saturation (15.00-50.00) Crossmatch 07/27/20 07/27/20 Range/Units 10:22 11:21 WBC (3.8-10.6) k/uL RBC (4.30-5.90) m/uL Hgb (13.0-17.5) gm/dL Hct (39.0-53.0) % RDW (11.5-15.5) % Plt Count (150-450) k/uL Neutrophils # (1.3-7.7) k/uL Lymphocytes # (1.0-4.8) k/uL ABG O2 Saturation (94-97) % Sodium (137-145) mmol/L BUN (9-20) mg/dL Creatinine (0.66-1.25) mg/dL Glucose (74-99) mg/dL POC Glucose (mg/dL) 51 L 227 H (75-99) mg/dL Calcium (8.4-10.2) mg/dL Magnesium (1.6-2.3) mg/dL Iron (65-175) ug/dL TIBC (228-460) ug/dL % Saturation (15.00-50.00) Crossmatch Microbiology - Last 24 Hours (Table) 07/24/20 19:03 Gram Stain - Final Sputum Sputum Culture - Final Pseudomonas fluorescens/putida Assessment and Plan Assessment: 1. CAD s/p CABG with 2v bypass, PABLO to LAD, and SVG to posterior decending coronary artery 2. Paroxysmal Atrial Fibrillation, with RVR 3. 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 Pneumatosis, Ischemic Bowel, s/p small bowel resection 5. Acute Blood Loss Anemia, post-operative, resolved 6. Pneumoperitoneum secondary to chest tubes, resolving 7. CONNOR superimposed on CKD, stage III, worsening 8. Hypertension, essential 9. Hyperlipidemia 10. Type II DM, uncontrolled 11. Hypothyroidism 12. Obesity, BMI 30.5 13. Hyponatremia and Hyperkalemia 80 year old man with history of COPD, CKD III, HTN/HLD/CAD/DM, Obesity presented for symptomatic CAD and underwent 2v CABG with post-operative course complicated by respiratory failure secondary to COPD exacerbation, blood loss anemia, paroxysmal atrial fibrillation with RVR, and metabolic derangements. DM 2 - hold metformin - Inulin subcutaneous with sliding scale insulin coverage, check blood sugars every before meals and at bedtime, Levemir added on 07/21. - Blood sugars currently controlled, follow blood sugars closely - A1C from 06/21/2020 5.2, anticipate discharge home back on metformin which may be able to come off in the near future in the outpatient setting. Small Bowel Ischemia - surgery consult - POD #2 s/p resection - LR @ 75cc/hr, can uptitrate as patient appears dry on 07/25 - on zosyn, consider adding fluconazole - MRSA nares pending A-fib with RVR On amio and eliquis Off cardizem gtt CONNOR on CKD stage III Baseline cr 1.4-1.5 Likely cardiorenal syndrome, patient received contrast earlier in the admission. Try to avoid IV fluids Recheck in am Avoid nephrotoxic meds Nephrology is following Acute hyponatremia Likely sec to renal failure Monitor Nephrology consulted, checking urine and plasma osmolalities as well as urine sodium. Hyperkalemia Kayexalate 15 g, follow K in a.m. Pneumoperitoneum suspect secondary to mediastinal chest tubes -Tube d/melody -Resolved. Constipation On Senokot, MiraLAX Had a bowel movement today Acute blood loss anemia and thrombocytopenia, anticipated outcome of surgery - follow CBC - transfuse as indicated COPD with acute exacerbation - On steroids, we'll wean down today from 60 to 40 mg every 6 hours. - DuoNebs - on spiriva and advair at home Coronary artery disease -Status post coronary artery bypass grafting -Cardiothoracic and cardiology following HTN - meds per CT surgery - follow BP Hypothyroidism status post partial thyroidectomy - synthroid Morbid obesity with BMI 30.5 -Outpatient structured weight loss Chronic: [place] [facility] Thank you for allowing us to participate in the care of this pleasant patient. Do not hesitate to contact us with questions. Someone can be reached from the [facility] hospitalist group all hours of the day at [phone] or via [employer].
[2020-07-27] MEDS: HYDROmorphone 0.5 MG/0.5 ML SYRINGE IVP PRN ×2 (12:10→22:33)
[2020-07-27 12:16] LABS: Glucose,Whole Blood 235 mg/dL (75-99)
[2020-07-27 13:05] LABS: Glucose,Whole Blood 247 mg/dL (75-99)
[2020-07-27] MEDS ORDERED: FLUCONAZOLE IN NACL,ISO-OSM 200 MG in SALINE 1 100ML.BAG IVPB SCH (13:30)
[2020-07-27 14:30] LABS: Glucose,Whole Blood 219 mg/dL (75-99)
[2020-07-27] MEDS: DEXMEDETOMIDINE/0.9% NACL(PMX) 400 MCG in EMPTY BAG 1 BAG IV SCH ×2 (14:55→20:05)
[2020-07-27] MEDS: HYDROmorphone 1 MG/ML 1 ML SYRINGE IVP PRN (15:00)
[2020-07-27 15:06] LABS: Anisocytosis Slight; HCT 26.6 % (39.0-53.0); Hypochromasia Slight; MCH 31.8 pg (25.0-35.0); MCHC 33.2 g/dL (31.0-37.0); Macrocytosis Slight; Mean Platelet Volume 8.2; Platelet Count 179 k/uL (150-450); Poikilocytosis Slight; RBC 2.77 m/uL (4.30-5.90); RDW 17.1 % (11.5-15.5); WBC 22.8 k/uL (3.8-10.6)
[2020-07-27 15:09] LABS: HGB 8.8 gm/dL (13.0-17.5)
[2020-07-27] MEDS ORDERED: INSULIN ASPART (NovoLOG) 100 UNIT/ML VIAL SQ SCH ×2 (15:15→17:30)
--- NOTE | 2020-07-27 15:18 | P.PN ---
Subjective Progress Note Date: 07/27/20 CHIEF COMPLAINT: Status post CABG 2 vessels HISTORY OF PRESENT ILLNESS: Patient remains in the ICU. He is intubated and sedated. Patient is postop day #3 status post small bowel resection for ischemic small bowel with evidence of pneumatosis. Patient's blood pressure has shown improvement. He is off of pressor support. He is on TPN for nutrition support. Patient is scheduled for 1 unit of blood for hemoglobin of 6.9. Temp is 96.9 patient does have warming blanket. He is undergoing sedation holiday. Afebrile. WBC 15.3 hemoglobin 6.9 creatinine 2.00 lactic 0.7 sputum culture growing Pseudomonas critical care service is aware of this PHYSICAL EXAM: VITAL SIGNS: Reviewed. GENERAL: Well-developed in no acute distress. HEENT: No sclera icterus. Extraocular movements grossly intact. Moist buccal mucosa. Head is atraumatic, normocephalic. ABDOMEN: Soft mildly distended NEUROLOGIC: Intubated and sedated ASSESSMENT: 1. Ischemic small bowel with evidence of pneumatosis status post small bowel resection 2. Acute hypoxic respiratory failure requiring mechanical ventilation 3. symptomatic triple-vessel coronary artery disease status post 2 vessel coronary bypass grafting surgery 4. History of coronary artery disease with stent placement to the RCA in 2002 5. Hypertension 6. Diabetes mellitus type 2 PLAN: -Continue IV antibiotics -Any further antibiotic adjustments per critical care service -Continue to hold Eliquis for now -Continue TPN for nutrition support -Continue supportive care -DVT prophylaxis subcu heparin and GI prophylaxis Protonix Physician Janitorial Maintenance Worker note has been reviewed by physician. Signing provider agrees with the documented findings, assessment, and plan of care. Objective - Vital Signs Vital signs: Vital Signs Temp 96.9 F L 07/27/20 12:00 Pulse 90 07/27/20 15:00 Resp 31 H 07/27/20 15:00 BP 136/65 07/27/20 13:00 Pulse Ox 97 07/27/20 15:00 Intake & Output 07/26/20 07/27/20 07/27/20 18:59 06:59 18:59 Intake Total 1150.259 5548.836 1212.088 Output Total 916 234 5354 Balance 907.516 380.836 -197.912 Weight 113.7 kg Intake: IV 1030 960 768 Mvi, Adult No.4 with Vit 480 720 540 K 10 ml Trace (Conc-1Ml/ Dose) 1 ml Sodium Chloride 2.5MEQ/ml Vial 15 meq Calcium Gluconate 1 gm Sodium Phosphate 15 mmol In Amino Acid 5%- D15w 1,000 ml @ 60 mls/hr IV .BY DURATION [facility] Rx#: [id number] Piperacillin-Tazobactam 3 200 100 .375 gm In Sodium Chloride 0.9% 100 ml @ 25 mls/hr IVPB Q8HR [facility] Rx# :[id number] Sodium Chloride 0.9% 1, 350 240 80 000 ml @ 20 mls/hr IV . Q24H [facility] Rx#:[id number] pressure bag 48 Intake, IV Titration 552.516 335.836 134.088 Amount Amiodarone 360 mg In 200 193.615 Dextrose 5% in Water 200 ml @ 0.5 MG/MIN 16.667 mls/hr IV .Q12H [facility] Rx#: [id number] Dexmedetomidine/0.9% NaCl 79.298 100 (Pmx) 400 mcg In Empty Bag 1 bag @ Titrate IV . Q0M [facility] Rx#:[id number] Insulin Regular 100 unit 22.472 62.923 23.988 In Sodium Chloride 0.9% 100 ml @ Per Protocol IV .Q0M [facility] Rx#:[id number] Insulin Regular 100 unit 10.1 In Sodium Chloride 0.9% 100 ml @ Per Protocol IV .Q0M [facility] Rx#:[id number] Piperacillin-Tazobactam 3 100 .375 gm In Sodium Chloride 0.9% 100 ml @ 25 mls/hr IVPB Q8HR [facility] Rx# :[id number] propofoL 1,000 mg In 230.044 Empty Bag 1 bag @ Titrate IV .Q0M [facility] Rx#: [id number] Blood Product 310 310 Rc As-1 Unit 310 [id number] Rc Irr As1 Unit 310 [id number] Output: Urine 228 288 5111 Emesis 0 Other: Voiding Method Indwelling Catheter Indwelling Catheter ABP, PAP, CO, CI - Last Documented Arterial Blood Pressure 136/56 Pulmonary Artery Pressure 33/14 Cardiac Output 6.7 Cardiac Index 3.1 - Labs CBC & Chem 7: 07/27/20 14:50 07/27/20 04:55 Labs: Abnormal Lab Results - Last 24 Hours (Table) 07/24/20 07/26/20 07/26/20 Range/Units 16:56 04:30 15:34 WBC (3.8-10.6) k/uL RBC (4.30-5.90) m/uL Hgb (13.0-17.5) gm/dL Hct (39.0-53.0) % RDW (11.5-15.5) % Plt Count (150-450) k/uL Neutrophils # (1.3-7.7) k/uL Lymphocytes # (1.0-4.8) k/uL ABG O2 Saturation (94-97) % Sodium (137-145) mmol/L BUN (9-20) mg/dL Creatinine (0.66-1.25) mg/dL Glucose (74-99) mg/dL POC Glucose (mg/dL) 125 H (75-99) mg/dL Calcium (8.4-10.2) mg/dL Magnesium (1.6-2.3) mg/dL Iron 8 L (65-175) ug/dL TIBC 186 L (228-460) ug/dL % Saturation 4.30 L (15.00-50.00) Crossmatch See Detail 07/26/20 07/26/20 07/26/20 Range/Units 15:58 17:12 17:59 WBC (3.8-10.6) k/uL RBC (4.30-5.90) m/uL Hgb (13.0-17.5) gm/dL Hct (39.0-53.0) % RDW (11.5-15.5) % Plt Count (150-450) k/uL Neutrophils # (1.3-7.7) k/uL Lymphocytes # (1.0-4.8) k/uL ABG O2 Saturation (94-97) % Sodium (137-145) mmol/L BUN (9-20) mg/dL Creatinine (0.66-1.25) mg/dL Glucose (74-99) mg/dL POC Glucose (mg/dL) 111 H 130 H 182 H (75-99) mg/dL Calcium (8.4-10.2) mg/dL Magnesium (1.6-2.3) mg/dL Iron (65-175) ug/dL TIBC (228-460) ug/dL % Saturation (15.00-50.00) Crossmatch 07/26/20 07/26/20 07/26/20 Range/Units 19:06 20:12 21:47 WBC (3.8-10.6) k/uL RBC (4.30-5.90) m/uL Hgb (13.0-17.5) gm/dL Hct (39.0-53.0) % RDW (11.5-15.5) % Plt Count (150-450) k/uL Neutrophils # (1.3-7.7) k/uL Lymphocytes # (1.0-4.8) k/uL ABG O2 Saturation (94-97) % Sodium (137-145) mmol/L BUN (9-20) mg/dL Creatinine (0.66-1.25) mg/dL Glucose (74-99) mg/dL POC Glucose (mg/dL) 195 H 226 H 220 H (75-99) mg/dL Calcium (8.4-10.2) mg/dL Magnesium (1.6-2.3) mg/dL Iron (65-175) ug/dL TIBC (228-460) ug/dL % Saturation (15.00-50.00) Crossmatch 07/26/20 07/27/20 07/27/20 Range/Units 23:39 00:31 02:52 WBC (3.8-10.6) k/uL RBC (4.30-5.90) m/uL Hgb (13.0-17.5) gm/dL Hct (39.0-53.0) % RDW (11.5-15.5) % Plt Count (150-450) k/uL Neutrophils # (1.3-7.7) k/uL Lymphocytes # (1.0-4.8) k/uL ABG O2 Saturation (94-97) % Sodium (137-145) mmol/L BUN (9-20) mg/dL Creatinine (0.66-1.25) mg/dL Glucose (74-99) mg/dL POC Glucose (mg/dL) 179 H 186 H 171 H (75-99) mg/dL Calcium (8.4-10.2) mg/dL Magnesium (1.6-2.3) mg/dL Iron (65-175) ug/dL TIBC (228-460) ug/dL % Saturation (15.00-50.00) Crossmatch 07/27/20 07/27/20 07/27/20 Range/Units 04:48 04:50 04:55 WBC (3.8-10.6) k/uL RBC (4.30-5.90) m/uL Hgb (13.0-17.5) gm/dL Hct (39.0-53.0) % RDW (11.5-15.5) % Plt Count (150-450) k/uL Neutrophils # (1.3-7.7) k/uL Lymphocytes # (1.0-4.8) k/uL ABG O2 Saturation 98.3 H (94-97) % Sodium 130 L (137-145) mmol/L BUN 73 H (9-20) mg/dL Creatinine 2.00 H (0.66-1.25) mg/dL Glucose 139 H (74-99) mg/dL POC Glucose (mg/dL) 153 H (75-99) mg/dL Calcium 7.5 L (8.4-10.2) mg/dL Magnesium 2.7 H (1.6-2.3) mg/dL Iron (65-175) ug/dL TIBC (228-460) ug/dL % Saturation (15.00-50.00) Crossmatch 07/27/20 07/27/20 07/27/20 Range/Units 04:55 07:24 10:22 WBC 15.3 H (3.8-10.6) k/uL RBC 2.17 L (4.30-5.90) m/uL Hgb 6.9 L* (13.0-17.5) gm/dL Hct 21.3 L (39.0-53.0) % RDW 17.0 H (11.5-15.5) % Plt Count 139 L (150-450) k/uL Neutrophils # 14.3 H (1.3-7.7) k/uL Lymphocytes # 0.3 L (1.0-4.8) k/uL ABG O2 Saturation (94-97) % Sodium (137-145) mmol/L BUN (9-20) mg/dL Creatinine (0.66-1.25) mg/dL Glucose (74-99) mg/dL POC Glucose (mg/dL) 131 H 51 L (75-99) mg/dL Calcium (8.4-10.2) mg/dL Magnesium (1.6-2.3) mg/dL Iron (65-175) ug/dL TIBC (228-460) ug/dL % Saturation (15.00-50.00) Crossmatch 07/27/20 07/27/20 07/27/20 Range/Units 11:21 12:15 13:04 WBC (3.8-10.6) k/uL RBC (4.30-5.90) m/uL Hgb (13.0-17.5) gm/dL Hct (39.0-53.0) % RDW (11.5-15.5) % Plt Count (150-450) k/uL Neutrophils # (1.3-7.7) k/uL Lymphocytes # (1.0-4.8) k/uL ABG O2 Saturation (94-97) % Sodium (137-145) mmol/L BUN (9-20) mg/dL Creatinine (0.66-1.25) mg/dL Glucose (74-99) mg/dL POC Glucose (mg/dL) 227 H 235 H 247 H (75-99) mg/dL Calcium (8.4-10.2) mg/dL Magnesium (1.6-2.3) mg/dL Iron (65-175) ug/dL TIBC (228-460) ug/dL % Saturation (15.00-50.00) Crossmatch 07/27/20 07/27/20 Range/Units 14:28 14:50 WBC 22.8 H (3.8-10.6) k/uL RBC 2.77 L (4.30-5.90) m/uL Hgb 8.8 L D (13.0-17.5) gm/dL Hct 26.6 L (39.0-53.0) % RDW 17.1 H (11.5-15.5) % Plt Count (150-450) k/uL Neutrophils # (1.3-7.7) k/uL Lymphocytes # (1.0-4.8) k/uL ABG O2 Saturation (94-97) % Sodium (137-145) mmol/L BUN (9-20) mg/dL Creatinine (0.66-1.25) mg/dL Glucose (74-99) mg/dL POC Glucose (mg/dL) 219 H (75-99) mg/dL Calcium (8.4-10.2) mg/dL Magnesium (1.6-2.3) mg/dL Iron (65-175) ug/dL TIBC (228-460) ug/dL % Saturation (15.00-50.00) Crossmatch Microbiology - Last 24 Hours (Table) 07/24/20 19:03 Gram Stain - Final Sputum Sputum Culture - Final Pseudomonas fluorescens/putida
--- NOTE | 2020-07-27 15:22 | PN ---
PROGRESS NOTE Patient is seen for followup for acute kidney injury, mostly ATN. The patient has been started on TPN. He remains on the vent. He has had good urine output. Current urine output at about 75 to 50 mL/hour. PHYSICAL EXAMINATION: On examination today, the patient is sedated. He is on the vent. Blood pressure 94/42, heart rate of 61 per minute. Patient is afebrile. EXAMINATION OF THE HEART: S1 and S2. EXAMINATION OF LUNGS: Bilateral breath sounds are heard. ABDOMEN: Soft. His incision is dressed. , non-tender. EXTREMITIES: He has edema 2 to 3+ bilaterally, upper and lower extremities. SPLICING TECHNICIAN exam cannot be performed. LABS: Labs from today show sodium 130, potassium 4.4, chloride 101, BUN 73, serum creatinine 2.0. ASSESSMENT: 1. Acute kidney injury, acute tubular necrosis, associated with hypotension, hemodynamic instability, currently nonoliguric and improved. The patient is also volume-overloaded, which may falsely lower his creatinine. However, the creatinine is decreasing. 2. Volume overload. The patient should be diuresed. He is going to receive Lasix today after his packed RBCs. 3. Hyponatremia, currently hypervolemic. Expect improvement with further diuresis. 4. Anemia. No active bleeding noted. Patient is being transfused packed RBCs. 5. Bowel ischemia and pneumatosis, status post small-bowel resection. 6. Coronary artery bypass surgery, postoperative day number 9. PLAN: Gently diurese patient. Repeat labs in a.m. Continue to avoid nephrotoxic agents. Patient is also noted to have severe iron deficiency. I will add IV iron. MMODL / IJN: [id number] /
[2020-07-27 15:33] LABS: Glucose,Whole Blood 216 mg/dL (75-99)
[2020-07-27] MEDS ORDERED: fentaNYL (PF) 50 MCG/ML 2 ML AMP IVP ONE (16:00)
[2020-07-27 16:56] LABS: Glucose,Whole Blood 180 mg/dL (75-99)
[2020-07-27] MEDS: [UNRECOGNIZED DRUG - OTHER] IVPB SCH (17:13)
[2020-07-27] MEDS: SODIUM CHLORIDE 0.9% IVPB SCH (17:13)
[2020-07-27 18:07] LABS: Glucose,Whole Blood 177 mg/dL (75-99)
[2020-07-27 19:02] LABS: Glucose,Whole Blood 140 mg/dL (75-99)
[2020-07-27 19:57] LABS: Glucose,Whole Blood 130 mg/dL (75-99)
[2020-07-27 21:12] LABS: Glucose,Whole Blood 112 mg/dL (75-99)
[2020-07-27 22:09] LABS: Glucose,Whole Blood 150 mg/dL (75-99)
[2020-07-27 23:06] LABS: Glucose,Whole Blood 141 mg/dL (75-99)
[2020-07-28 00:04] LABS: Glucose,Whole Blood 136 mg/dL (75-99)
[2020-07-28 01:00] LABS: Glucose,Whole Blood 153 mg/dL (75-99)
[2020-07-28] MEDS ORDERED: 1: MVI, ADULT NO.4 WITH VIT K 10 ML, TRACE (CONC-1ML/DOSE) 1 ML, SODIUM CHLORIDE 2.5MEQ/ IV SCH ×6 (01:00)
[2020-07-28 02:00] LABS: Glucose,Whole Blood 123 mg/dL (75-99)
[2020-07-28 03:06] LABS: Glucose,Whole Blood 133 mg/dL (75-99)
[2020-07-28] MEDS: HYDROmorphone 0.5 MG/0.5 ML SYRINGE IVP PRN ×3 (03:07→16:28)
[2020-07-28 04:09] LABS: Glucose,Whole Blood 140 mg/dL (75-99)
[2020-07-28] MEDS: SODIUM CHLORIDE 0.9% 1,000 ML IV SCH ×2 (04:09→17:24)
[2020-07-28 04:22] LABS: Anisocytosis Slight; Basophils # (A) 0.2 k/uL (0-0.2); Basophils % (A) 1 %; Eosinophils # (A) 0.1 k/uL (0-0.7); Eosinophils % (A) 1 %; HCT 24.8 % (39.0-53.0); HGB 8.4 gm/dL (13.0-17.5); Hypochromasia Slight; Lymphocytes # (A) 0.1 k/uL (1.0-4.8); Lymphocytes % (A) 1 %; MCH 32.5 pg (25.0-35.0); MCHC 33.6 g/dL (31.0-37.0); MCV 96.5 fL (80.0-100.0); Macrocytosis Slight; Mean Platelet Volume 7.4; Monocytes # (A) 0.8 k/uL (0-1.0); Monocytes % (A) 5 %; Neutrophils # (A) 16.5 k/uL (1.3-7.7); Neutrophils % (A) 92 %; Platelet Count 157 k/uL (150-450); Poikilocytosis Slight; RBC 2.58 m/uL (4.30-5.90); RDW 16.7 % (11.5-15.5)
[2020-07-28 04:46] LABS: Ionized Calcium 4.9 mg/dL (4.5-5.3)
[2020-07-28 05:00] LABS: Albumin 2.3 g/dL (3.5-5.0); Calcium 7.8 mg/dL (8.4-10.2); Magnesium 2.3 mg/dL (1.6-2.3); Phosphorus 3.9 mg/dL (2.5-4.5); Potassium 4.4 mmol/L (3.5-5.1); Total Bilirubin 1.1 mg/dL (0.2-1.3); Total Protein 4.4 g/dL (6.3-8.2)
[2020-07-28 05:03] LABS: Glucose,Whole Blood 146 mg/dL (75-99)
[2020-07-28 05:03] LABS: ABG Base Excess -2.5 mmol/L; ABG HCO3 23 mmol/L (21-25); ABG Oxygen Saturation 98.4 % (94-97); ABG PCO2 43 mmHg (35-45); ABG PH 7.35 (7.35-7.45); ABG PO2 93 mmHg (83-108); ABG TCO2 25 mmol/L (19-24)
[2020-07-28] MEDS: INSULIN REGULAR 100 UNIT in SODIUM CHLORIDE 0.9% 100 ML IV SCH ×2 (05:12→17:20)
[2020-07-28 05:52] LABS: Glucose,Whole Blood 125 mg/dL (75-99)
[2020-07-28] MEDS: DEXMEDETOMIDINE/0.9% NACL(PMX) 400 MCG in EMPTY BAG 1 BAG IV SCH (06:45)
[2020-07-28 06:50] LABS: Glucose,Whole Blood 129 mg/dL (75-99)
--- NOTE | 2020-07-28 07:15 | XR ---
EXAMINATION TYPE: XR chest 1V portable DATE OF EXAM: 07/28/2020 COMPARISON: 07/27/2020 INDICATION: Tube placement TECHNIQUE: Single frontal view of the chest is obtained. FINDINGS: The heart size is mildly prominent. The pulmonary vasculature is normal. Mild bibasilar infiltrates are present. Small pleural effusions are present Endotracheal tube tip is above the mickey. Nasogastric tube transverses the thorax. Right central mike ous catheter tip is in the proximal right atrium 2 no pneumothorax is evident IMPRESSION: 1. Bibasilar infiltrates. Correlate for atypical pneumonia. 2. Lines and catheters as above
--- NOTE | 2020-07-28 07:16 | P.PN ---
Subjective Progress Note Date: 07/28/20 80-year-old male patient postoperative bypass surgery. Postop day number #6. The patient underwent bypass surgery. The patient remains extubated on 3 L of oxygen by nasal cannula. Chest x-ray shows small right-sided pleural effusion. The patient is awake and alert. The patient is using incentive spirometer. The patient is able to sit up on a chair. He is feeling better on a daily basis. The patient is of coronary artery disease and previous stenting of her back in 2002. Patient has hyperlipidemia and hypothyroidism patient has undergone a partial thyroidectomy he had the patient is an ex-smoker. Mother with COPD with an FEV1 of 56% predicted with some bullous changes. The patient has diabetes mellitus type 2 with a preop hemoglobin A1c of 5.2. The patient is, stage III. The postoperative course was complicated by in acute blood loss anemia which is expected outcome of surgery and the patient also developed atrial fibrillation and other expected outcome of surgery. There was also some limited pneumomediastinum secondary to mediastinal tubes. The patient's currently is in normal sinus rhythm. He is using incentive spirometer.he is pulling approximately 500 on the incentive spirometer. No appreciated bronchospasm wheezing on today's evaluation. Chest x-ray shows small bilateral pleural effusion slightly worse on the right. The patient has no chest tubes at this point in time. He remains nature fibrillation with controlled rate. On 07/25, the patient is being seen in the follow-up. The patient is postop day #1 sought 8 cardiac surger2 following coronary artery bypass surgery. Events occurring yesterday were noted. The patient developed worsening abdominal pain and distention and following that the patient had a CAT scan of the abdomen that showed extensive portal venous air and intraluminal air along with dilated small bowel in the mid abdomen. Bowel gangrene an infarction was suspected. The patient also has a mild to moderate-sized right-sided pleural effusion and small pericardial effusion. The patient was taken to the operating room and the patient underwent a exploratory laparotomy for pneumatosis of the small bowel. The patient underwent small bowel resection. The patient was found to have dilated small bowel. The bowel was ischemic approximately 4 inches from the ileocecal valve. Bowel resection was done and following that the patient was kept intubated on mechanical ventilator and the patient was brought back to the ICU. At this point in time, the patient sedated with propofol and the patient currently intubated on a mechanical ventilator. Orogastric and orotracheal tube was placed. The patient also has a right IJ triple-lumen catheter. Patient is currently on no pressors. She had received some Varun-Synephrine and operating room. The patient is currently on AC and a rate of 14 and TV 600 PEEP 5 and FIO2 50%. Propofol at 10 mc/kg/min and the patient has been on LR at 125cc/hr. The patient is on IV zosyn as a broad- spectrum antibiotic coverage.the blood gases from this morning showed a pH of 7.4 with a pCO2 of 35 and pO2 of 74. Chest x-ray showing a right-sided pleural effusion. ET tube is in a good location. Lactated Ringer is down to 75 mL an hour. Urine output is ordered of 20-30 mL. on 07/26/2020, the patient is postop day #2 from his abdominal surgery and postop day #8 from his cardiac surgery. The patientis was resuscitated and the patient overall received a 3 L bolus yesterday and his net fluid balance is positive for liters over the past 24 hours. Hemoglobin is up to 6.4 and the patient will be receiving a unit of packed RBC. We do not think this is related to bleeding and probably this is dilutional. Meanwhile, the patient is sedated with propofol which is running at 35 mcg/kg per minute. The patient is well rested and comfortable. He is an assist-control mode rate of 14 with a total volume of 600 and FiO2 of 50% with a chief of 5. Chest x-ray shows small bilate ral pleural effusion slightly worse on the right. The blood. Shows pH of 7.37 with a pCO2 of 40 and pO2 of 112 and the necessity ventilator changes were done. Abdominal wound is dry clean and intact. No bowel sounds. Surgical wound site over the chest that is dry clean and intact. NG tube is in place. The patient is receiving TPN for nutritional support. IV fluids in the form of normal saline at the rate of 75 mL an hour. Urine output is in order of 30-40 mL an hour. No other significant issues otherwise. No pressors. A sedation holiday will be given and his underlying mental status will be assessed. Weaning parameters will be also assessed.he is currently off Varun-Synephrine. This was discontinued yesterday. On 07/27/2020, the patient is being seen for a follow-up. He is currently on Precedex which is running at 0.55 g per KG per minute. He is well sedated and he is arousable. He is postop day #3 following his abdominal surgery and postop day #9 following his cardiac surgery. He is still on a mechanical ventilator on assist control mode at the rate of 14 with a tidal volume of 500 and a FiO2 of 40% with a PEEP of 5. Chest x-ray showing cardiomegaly. ET tube is in a good location. ET tube is in place. The patient has small bilateral pleural effusions slightly worse on the right. No other acute abnormalities noted. Blood gases from today shows a pH of 7.35 with a pCO2 of 42 and pO2 of 92 on the above-mentioned vent setting. The patient received 2 units of packed RBC yesterday and hemoglobin today is up to 6.9. White blood count is down to 15.3 and the patient is afebrile. The patient is on no pressors for now. He was taken Varun-Synephrine which is currently off. The abdominal wound is dry clean and intact. The surgical wound over the sternum is dry clean and intact. He has a triple lumen catheter in his right IJ. He is on IV Zosyn and he is adequately recovered for now. Dilaudid for pain control. Fluid balance over the past 24 hours is positive for 4.6 L. He is taking TPN which is running at 60 and mother number and a normal saline is currently running at 20 mL an hour. on 07/28/2020, the patient remains intubated on a mechanical ventilator. He is postop day #10 from his cardiac surgery and postoperative day number 4 post abdominal Surgery . This morning, the patient is sedated with Precedex which is running at 0.4 mcg/kg per minute. The patient is arousable. He is following some simple commands. We're the process of weaning the sedation further. His atrial fibrillation is under good control. He is on amiodarone drip maintenance at 0.5 mg per minute. He is hemodynamically stable on no pressors. He remains on a mechanical ventilator. Ventilator setting includes a rate of 14 with a tidal volume of 500 and FiO2 of 40% with a PEEP of 5. Blood gases from today showed a pH of 7.35 with a pCO2 of 43 and pO2 of 93. Chest x-ray shows small bilateral pleural effusions and atelectatic changes in the lung bases. The orotracheal tube is in a good location. The patient is producing adequate amount of urine output. The patient received a unit of packed RBC yesterday and hemoglobin is up to 8.4. The patient is in a 0 fluid balance over the past 24 hours. His white cell count is at 18.And his hemoglobin is at 8.4. His renal function is stable with a creatinine of 2.08. On examination, a has still hy poactive bowel sounds. Surgical wound site is dry clean and intact over the anterior abdominal wall and the sternum. NG tube is in place. Output is minimal at this point in time. He remains on IV Zosyn as an empiric antibiotic coverage. He has not received anticoagulation. He has not receiving enteral feeding and the patient is receiving TPN for nutritional support. Objective - Vital Signs Vital signs: Vital Signs Temp 98.1 F 07/28/20 04:00 Pulse 85 07/28/20 04:00 Resp 28 H 07/28/20 04:00 BP 138/71 07/27/20 18:00 Pulse Ox 97 07/28/20 04:00 Intake & Output 07/27/20 07/28/20 07/28/20 18:59 06:59 18:59 Intake Total 9216.563 6908.835 Output Total 1925 1455 Balance -350.755 -112.165 Weight 113.7 kg Intake: IV 1006 1032 Mvi, Adult No.4 with Vit 720 720 K 10 ml Trace (Conc-1Ml/ Dose) 1 ml Sodium Chloride 2.5MEQ/ml Vial 15 meq Calcium Gluconate 1 gm Sodium Phosphate 15 mmol In Amino Acid 5%- D15w 1,000 ml @ 60 mls/hr IV .BY DURATION [facility] Rx#: [id number] Piperacillin-Tazobactam 3 100 .375 gm In Sodium Chloride 0.9% 100 ml @ 25 mls/hr IVPB Q8HR [facility] Rx# :[id number] Sodium Chloride 0.9% 1, 120 240 000 ml @ 20 mls/hr IV . Q24H [facility] Rx#:[id number] pressure bag 66 72 Intake, IV Titration 258.245 310.835 Amount Amiodarone 300 mg In 87.292 150.833 Dextrose 5% in Water 250 ml @ 0.25 MG/MIN 12.5 mls /hr IV .Q20H [facility] Rx#: [id number] Dexmedetomidine/0.9% NaCl 100 (Pmx) 400 mcg In Empty Bag 1 bag @ Titrate IV . Q0M [facility] Rx#:[id number] Dexmedetomidine/0.9% NaCl 101.043 (Pmx) 400 mcg In Empty Bag 1 bag @ Titrate IV . Q0M [facility] Rx#:[id number] Insulin Regular 100 unit 23.988 In Sodium Chloride 0.9% 100 ml @ Per Protocol IV .Q0M [facility] Rx#:[id number] Insulin Regular 100 unit 46.965 58.959 In Sodium Chloride 0.9% 100 ml @ Per Protocol IV .Q0M [facility] Rx#:[id number] Blood Product 310 Rc As-1 Unit 310 [id number] Output: Urine 1925 1455 Other: Voiding Method Indwelling Catheter Indwelling Catheter ABP, PAP, CO, CI - Last Documented Arterial Blood Pressure 117/57 Pulmonary Artery Pressure 33/14 Cardiac Output 6.7 Cardiac Index 3.1 - Exam Gen. appearance the patient is intubated, comfortable mechanical ventilator. Orogastric and orotracheal place.the patient is arousable. He is sedated. He is easily arousable off sedation. Head exam was generally normal. There was no scleral icterus or corneal arcus. Mucous membranes were moist. Neck was supple and without jugular venous distension, thyromegaly, or carotid bruits. Carotids were easily palpable bilaterally. There was no adenopathy. the patient has orogastric tube and orotracheal tube and the patient has a right IJ triple-lumen catheter Lungs sounds are diminished in the right lung base. Breath sounds are otherwise within normal limits. Sternum stable clean and intact. Cardiac exam revealed the PMI to be normally situated and sized. The rhythm was regular and no extrasystoles were noted during several minutes of auscultation. The first and second heart sounds were normal and physiologic splitting of the second heart sound was noted. There were no murmurs, rubs, clicks, or gallops. Abdomen is distended. Bowel sounds are hypoactive and nearly absent. Surgical wound site is dry. Overall. No direct tenderness. No rebound tenderness. No guarding. hypoactive bowel sounds. Surgical wound site over the anterior abdominal wall is dry clean and intact. Examination of the extremities revealed easily palpable radial, femoral and pedal pulses. There was no cyanosis, clubbing or edema. Examination of the skin revealed no evidence of significant rashes, suspicious appearing nevi or other concerning lesions. Neurologically, the patient is arousable on minimal amount of sedation.he is following commands and the patient does not have any focal neurological deficit. Cranial nerves are essentially intact. - Labs CBC & Chem 7: 07/28/20 04:00 07/28/20 04:00 Labs: Abnormal Lab Results - Last 24 Hours (Table) 07/24/20 07/27/20 07/27/20 Range/Units 16:56 07:24 10:22 WBC (3.8-10.6) k/uL RBC (4.30-5.90) m/uL Hgb (13.0-17.5) gm/dL Hct (39.0-53.0) % RDW (11.5-15.5) % Neutrophils # (1.3-7.7) k/uL Lymphocytes # (1.0-4.8) k/uL ABG Total CO2 (19-24) mmol/L ABG O2 Saturation (94-97) % Sodium (137-145) mmol/L BUN (9-20) mg/dL Creatinine (0.66-1.25) mg/dL Glucose (74-99) mg/dL POC Glucose (mg/dL) 131 H 51 L (75-99) mg/dL Calcium (8.4-10.2) mg/dL ALT (4-49) U/L Total Protein (6.3-8.2) g/dL Albumin (3.5-5.0) g/dL Procalcitonin (0.02-0.09) ng/mL Crossmatch See Detail 07/27/20 07/27/20 07/27/20 Range/Units 11:21 11:45 12:15 WBC (3.8-10.6) k/uL RBC (4.30-5.90) m/uL Hgb (13.0-17.5) gm/dL Hct (39.0-53.0) % RDW (11.5-15.5) % Neutrophils # (1.3-7.7) k/uL Lymphocytes # (1.0-4.8) k/uL ABG Total CO2 (19-24) mmol/L ABG O2 Saturation (94-97) % Sodium (137-145) mmol/L BUN (9-20) mg/dL Creatinine (0.66-1.25) mg/dL Glucose (74-99) mg/dL POC Glucose (mg/dL) 227 H 235 H (75-99) mg/dL Calcium (8.4-10.2) mg/dL ALT (4-49) U/L Total Protein (6.3-8.2) g/dL Albumin (3.5-5.0) g/dL Procalcitonin 3.53 H (0.02-0.09) ng/mL Crossmatch 07/27/20 07/27/20 07/27/20 Range/Units 13:04 14:28 14:50 WBC 22.8 H (3.8-10.6) k/uL RBC 2.77 L (4.30-5.90) m/uL Hgb 8.8 L D (13.0-17.5) gm/dL Hct 26.6 L (39.0-53.0) % RDW 17.1 H (11.5-15.5) % Neutrophils # (1.3-7.7) k/uL Lymphocytes # (1.0-4.8) k/uL ABG Total CO2 (19-24) mmol/L ABG O2 Saturation (94-97) % Sodium (137-145) mmol/L BUN (9-20) mg/dL Creatinine (0.66-1.25) mg/dL Glucose (74-99) mg/dL POC Glucose (mg/dL) 247 H 219 H (75-99) mg/dL Calcium (8.4-10.2) mg/dL ALT (4-49) U/L Total Protein (6.3-8.2) g/dL Albumin (3.5-5.0) g/dL Procalcitonin (0.02-0.09) ng/mL Crossmatch 07/27/20 07/27/20 07/27/20 Range/Units 15:32 16:54 18:06 WBC (3.8-10.6) k/uL RBC (4.30-5.90) m/uL Hgb (13.0-17.5) gm/dL Hct (39.0-53.0) % RDW (11.5-15.5) % Neutrophils # (1.3-7.7) k/uL Lymphocytes # (1.0-4.8) k/uL ABG Total CO2 (19-24) mmol/L ABG O2 Saturation (94-97) % Sodium (137-145) mmol/L BUN (9-20) mg/dL Creatinine (0.66-1.25) mg/dL Glucose (74-99) mg/dL POC Glucose (mg/dL) 216 H 180 H 177 H (75-99) mg/dL Calcium (8.4-10.2) mg/dL ALT (4-49) U/L Total Protein (6.3-8.2) g/dL Albumin (3.5-5.0) g/dL Procalcitonin (0.02-0.09) ng/mL Crossmatch 07/27/20 07/27/20 07/27/20 Range/Units 19:00 19:56 21:10 WBC (3.8-10.6) k/uL RBC (4.30-5.90) m/uL Hgb (13.0-17.5) gm/dL Hct (39.0-53.0) % RDW (11.5-15.5) % Neutrophils # (1.3-7.7) k/uL Lymphocytes # (1.0-4.8) k/uL ABG Total CO2 (19-24) mmol/L ABG O2 Saturation (94-97) % Sodium (137-145) mmol/L BUN (9-20) mg/dL Creatinine (0.66-1.25) mg/dL Glucose (74-99) mg/dL POC Glucose (mg/dL) 140 H 130 H 112 H (75-99) mg/dL Calcium (8.4-10.2) mg/dL ALT (4-49) U/L Total Protein (6.3-8.2) g/dL Albumin (3.5-5.0) g/dL Procalcitonin (0.02-0.09) ng/mL Crossmatch 07/27/20 07/27/20 07/28/20 Range/Units 22:08 23:05 00:03 WBC (3.8-10.6) k/uL RBC (4.30-5.90) m/uL Hgb (13.0-17.5) gm/dL Hct (39.0-53.0) % RDW (11.5-15.5) % Neutrophils # (1.3-7.7) k/uL Lymphocytes # (1.0-4.8) k/uL ABG Total CO2 (19-24) mmol/L ABG O2 Saturation (94-97) % Sodium (137-145) mmol/L BUN (9-20) mg/dL Creatinine (0.66-1.25) mg/dL Glucose (74-99) mg/dL POC Glucose (mg/dL) 150 H 141 H 136 H (75-99) mg/dL Calcium (8.4-10.2) mg/dL ALT (4-49) U/L Total Protein (6.3-8.2) g/dL Albumin (3.5-5.0) g/dL Procalcitonin (0.02-0.09) ng/mL Crossmatch 07/28/20 07/28/20 07/28/20 Range/Units 00:58 01:59 03:05 WBC (3.8-10.6) k/uL RBC (4.30-5.90) m/uL Hgb (13.0-17.5) gm/dL Hct (39.0-53.0) % RDW (11.5-15.5) % Neutrophils # (1.3-7.7) k/uL Lymphocytes # (1.0-4.8) k/uL ABG Total CO2 (19-24) mmol/L ABG O2 Saturation (94-97) % Sodium (137-145) mmol/L BUN (9-20) mg/dL Creatinine (0.66-1.25) mg/dL Glucose (74-99) mg/dL POC Glucose (mg/dL) 153 H 123 H 133 H (75-99) mg/dL Calcium (8.4-10.2) mg/dL ALT (4-49) U/L Total Protein (6.3-8.2) g/dL Albumin (3.5-5.0) g/dL Procalcitonin (0.02-0.09) ng/mL Crossmatch 07/28/20 07/28/20 07/28/20 Range/Units 04:00 04:00 04:07 WBC 18.0 H (3.8-10.6) k/uL RBC 2.58 L (4.30-5.90) m/uL Hgb 8.4 L (13.0-17.5) gm/dL Hct 24.8 L (39.0-53.0) % RDW 16.7 H (11.5-15.5) % Neutrophils # 16.5 H (1.3-7.7) k/uL Lymphocytes # 0.1 L (1.0-4.8) k/uL ABG Total CO2 (19-24) mmol/L ABG O2 Saturation (94-97) % Sodium 130 L (137-145) mmol/L BUN 72 H (9-20) mg/dL Creatinine 2.08 H (0.66-1.25) mg/dL Glucose 134 H (74-99) mg/dL POC Glucose (mg/dL) 140 H (75-99) mg/dL Calcium 7.8 L (8.4-10.2) mg/dL ALT 68 H (4-49) U/L Total Protein 4.4 L (6.3-8.2) g/dL Albumin 2.3 L (3.5-5.0) g/dL Procalcitonin (0.02-0.09) ng/mL Crossmatch 07/28/20 07/28/20 07/28/20 Range/Units 04:59 05:02 05:50 WBC (3.8-10.6) k/uL RBC (4.30-5.90) m/uL Hgb (13.0-17.5) gm/dL Hct (39.0-53.0) % RDW (11.5-15.5) % Neutrophils # (1.3-7.7) k/uL Lymphocytes # (1.0-4.8) k/uL ABG Total CO2 25 H (19-24) mmol/L ABG O2 Saturation 98.4 H (94-97) % Sodium (137-145) mmol/L BUN (9-20) mg/dL Creatinine (0.66-1.25) mg/dL Glucose (74-99) mg/dL POC Glucose (mg/dL) 146 H 125 H (75-99) mg/dL Calcium (8.4-10.2) mg/dL ALT (4-49) U/L Total Protein (6.3-8.2) g/dL Albumin (3.5-5.0) g/dL Procalcitonin (0.02-0.09) ng/mL Crossmatch 07/28/20 Range/Units 06:49 WBC (3.8-10.6) k/uL RBC (4.30-5.90) m/uL Hgb (13.0-17.5) gm/dL Hct (39.0-53.0) % RDW (11.5-15.5) % Neutrophils # (1.3-7.7) k/uL Lymphocytes # (1.0-4.8) k/uL ABG Total CO2 (19-24) mmol/L ABG O2 Saturation (94-97) % Sodium (137-145) mmol/L BUN (9-20) mg/dL Creatinine (0.66-1.25) mg/dL Glucose (74-99) mg/dL POC Glucose (mg/dL) 129 H (75-99) mg/dL Calcium (8.4-10.2) mg/dL ALT (4-49) U/L Total Protein (6.3-8.2) g/dL Albumin (3.5-5.0) g/dL Procalcitonin (0.02-0.09) ng/mL Crossmatch Microbiology - Last 24 Hours (Table) 07/27/20 11:50 Nasal Screen MRSA/MSSA - Preliminary Nasal Swab 07/24/20 19:03 Gram Stain - Final Sputum Sputum Culture - Final Pseudomonas fluorescens/putida Assessment and Plan Plan: 1 Symptomatic coronary artery disease, status post two-vessel coronary artery bypass grafting with PABLO to the LAD, SVG to the PDA, postoperative day #10 2 Postoperative atrial fibrillation with rapid ventricular response requiring amiodarone and Metoprolol and he is currently off anticagulation due to the surgical intervention as mentioned above, and the patient continues to be in atrial fibrillation, the patient is currently on amiodarone 0.5 mg per minute continuous infusion. not clear for anticoagulation from the surgical standpoint 3 acute ischemic small bowel, pneumatosis the patient is post exp Laparotomy and small bowel resection. The patient is postop day #4, the patient is receiving TPN for nutritional support. the patient remains nothing by mouth for now. The bowel sounds are hypoactive. 4 acute hypoxic respiratory failure following bowel surgery. The patient was kept on mechanical ventilator since yesterday. Chest x-ray was noted and the patient is a small to moderate-sized right-sided pleural effusion. Blood gases was noted. the patient has pseudomonas in his lungs and his sputum culture. This is likely a colonizer. A superimposed pneumonia is felt to be less likely. The patient remains on IV Zosyn which covers pseudomonal organisms. 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 9 Acute on chronic kidney disease stage III at baseline, creatinine is up to 2.02 10 Diabetes mellitus type 2 11 Postoperative acute blood loss anemia, expected outcome of open heart surgery hemoglobin is update point as the patient received packed RBC transfusion yesterday 12 History of hypertension 13 History of hyperlipidemia 14 leukocytosis which is expected reactive leukocytosis, white cell count is at increased, yet stable at 18.0 Plan: Continue NSS at the rate of 20 mL an hour TPN for nutritional support Chest x-ray and labs reviewed Continue vent support and stop the sedation and gradually check weaning parameters and assess the patient's candidacy for further weaning. Continue IV Zosyn Continue bronchodilators no anticoagulation for now Lovenox 40 mg subcu for DVT prophylaxis as long as surgery is agreeable to that. We will continue to follow and make further recommendations based on his clinical condition CC evaluation more than 30 min
[2020-07-28] MEDS: LEVOTHYROXINE IVP 100 MCG/5 ML VIAL IV SCH (07:56)
[2020-07-28] MEDS: CHLORHEXIDINE GLUCONATE 15 ML CUP MUCOUS MEM SCH ×2 (07:56→21:23)
[2020-07-28] MEDS: ASPIRIN 81 MG PO SCH (07:56)
[2020-07-28] MEDS: HEPARIN SODIUM,PORCINE 5,000 UNIT/ML 1 ML VIAL SQ SCH ×2 (07:56→17:23)
[2020-07-28] MEDS: METOPROLOL TARTRATE 12.5 MG TAB NG-TUBE SCH ×2 (07:56→21:24)
[2020-07-28] MEDS: PIPERACILLIN-TAZOBACTAM 3.375 GM in SODIUM CHLORIDE 0.9% 100 ML IVPB SCH ×3 (07:57→23:49)
[2020-07-28] MEDS: PANTOPRAZOLE 40 MG/10 ML VIAL IVP SCH ×2 (07:57→21:23)
--- NOTE | 2020-07-28 07:57 | P.PN ---
Subjective Progress Note Date: 07/28/20 Principal diagnosis: Symptomatic triple-vessel coronary artery disease, mild left ventricular dysfunction. Previuos medical history of stenting to his right coronary artery in 2002, hypertension, hyperlipidemia, hypothyroid status post partial thyroidectomy, previous tobacco dependence quit smoking 20 years ago, moderate chronic obstructive pulmonary disease with preoperative FEV1 of 56% of predicted value, bullous emphysema, remote history of pneumonia, type 2 diabetes mellitus with a preoperative hemoglobin A1c of 5.2%, chronic kidney disease stage III with a baseline creatinine of 1.4-1.5, family history of premature coronary artery disease with brother having had CABG at less than 50 years old. POD #10 double coronary artery bypass grafting using the left internal mammary artery to left anterior descending coronary artery, reverse greater saphenous vein graft from the aorta to the posterior descending coronary artery. Exclusion of the left atrial appendage using a 35 mm Atriclip, endoscopic harvesting of the right greater saphenous vein from the groin to above the ankle level, graft flow measurement using the Sprout system, intraoperative transesophageal echocardiogram and epi-aortic scanning. Postoperative acute blood loss anemia, expected outcome from hemodilution and cardiopulmonary bypass. Postoperative paroxysmal atrial fibrillation, unexpected but common outcome after open heart surgery. Pneumoperitoneum, unexpected Acute on chronic kidney disease secondary to ATN Pneumatosis of the small bowel POD #4 small bowel resection Patient's currently laying in the intensive care unit sedated on mechanical ventilation. Went back into uncontrolled afib yesterday, amiodarone drip increased, currently in controlled afib, hemodynamically stable on no pressors. Sedated with precedex, wakes up and follows commands. NG tube in place to low intermittent suction with minimal greenish fluid, hypoactive bowel sounds x 4 quadrants. Abdomen is soft, less distended. Remains on IV amio, zosyn. Hemaglobin 6.9 yesterday, received 1 unit PRBCs, IV iron initiated by nephro, this morning hgb 8.4, no evidence of active bleeding. Objective - Vital Signs Vital signs: Vital Signs Temp 98.1 F 07/28/20 04:00 Pulse 85 07/28/20 04:00 Resp 28 H 07/28/20 04:00 BP 138/71 07/27/20 18:00 Pulse Ox 97 07/28/20 04:00 Intake & Output 07/27/20 07/28/20 07/28/20 18:59 06:59 18:59 Intake Total 8595.155 8416.835 8.338 Output Total 1925 1455 Balance -350.755 -112.165 8.338 Weight 113.7 kg Intake: IV 1006 1032 Mvi, Adult No.4 with Vit 720 720 K 10 ml Trace (Conc-1Ml/ Dose) 1 ml Sodium Chloride 2.5MEQ/ml Vial 15 meq Calcium Gluconate 1 gm Sodium Phosphate 15 mmol In Amino Acid 5%- D15w 1,000 ml @ 60 mls/hr IV .BY DURATION WADE Rx#: [id number] Piperacillin-Tazobactam 3 100 .375 gm In Sodium Chloride 0.9% 100 ml @ 25 mls/hr IVPB Q8HR WADE Rx# :[id number] Sodium Chloride 0.9% 1, 120 240 000 ml @ 20 mls/hr IV . Q24H WADE Rx#:[id number] pressure bag 66 72 Intake, IV Titration 258.245 310.835 8.338 Amount Amiodarone 300 mg In 87.292 150.833 Dextrose 5% in Water 250 ml @ 0.25 MG/MIN 12.5 mls /hr IV .Q20H WADE Rx#: [id number] Dexmedetomidine/0.9% NaCl 100 (Pmx) 400 mcg In Empty Bag 1 bag @ Titrate IV . Q0M WADE Rx#:[id number] Dexmedetomidine/0.9% NaCl 101.043 8.338 (Pmx) 400 mcg In Empty Bag 1 bag @ Titrate IV . Q0M WADE Rx#:[id number] Insulin Regular 100 unit 23.988 In Sodium Chloride 0.9% 100 ml @ Per Protocol IV .Q0M WADE Rx#:[id number] Insulin Regular 100 unit 46.965 58.959 In Sodium Chloride 0.9% 100 ml @ Per Protocol IV .Q0M WADE Rx#:[id number] Blood Product 310 Rc As-1 Unit 310 [id number] Output: Urine 1925 1455 Other: Voiding Method Indwelling Catheter Indwelling Catheter ABP, PAP, CO, CI - Last Documented Arterial Blood Pressure 117/57 Pulmonary Artery Pressure 33/14 Cardiac Output 6.7 Cardiac Index 3.1 - Constitutional General appearance: Present: cooperative, no acute distress, obese - Respiratory Details: Lungs sounds diminished bilaterally with coarse breath sounds in the bases. Respirations even, non-labored on mechanical ventilation. Currently current settings FiO2 40%, tidal volume 500, respiratory rate 14, PEEP 5. ABGs this morning on those settings 7.35/43/93/23/98%/-2.5 on those settings. 7.5 ET tube present, 23 at the lip - Cardiovascular Details: S1, S2 present. Irregular rate and rhythm, controlled atrial fibrillation on telemetry with rate in the 80s. Sternum stable. Palpable peripheral pulses bilaterally. Generalized edema present. Heart hugger, antiembolism stockings, SCDs present. Right internal jugular triple-lumen central line, right femoral arterial line present. - Gastrointestinal Gastrointestinal Comment(s): Abdomen soft, tender to palpation, slightly distended although less every day. Positive bowel sounds x 4 quadrants. NG tube present to low intermittent suction with minimal amount green drainage - Genitourinary Genitourinary Comment(s): Villafana catheter present draining clear, yellow urine. Output 100-150 mL/h overnight, 3380 mL in the last 24 hours - Integumentary Integumentary Comment(s): Skin is warm and dry with evidence of good perfusion. Anterior chest incision well approximated and covered with dry intact dressing. Right lower extremity EVH site well approximated. Mid abdominal incision well approximated and covered with dry intact dressing, old drainage present, nothing new - Neurologic Neurologic Comment(s): opens eyes, follows commands - Musculoskeletal Musculoskeletal Comment(s): moves all extremities - Allied health notes Allied health notes reviewed: nursing - Labs CBC & Chem 7: 07/28/20 04:00 07/28/20 04:00 Labs: Abnormal Lab Results - Last 24 Hours (Table) 07/24/20 07/27/20 07/27/20 Range/Units 16:56 10:22 11:21 WBC (3.8-10.6) k/uL RBC (4.30-5.90) m/uL Hgb (13.0-17.5) gm/dL Hct (39.0-53.0) % RDW (11.5-15.5) % Neutrophils # (1.3-7.7) k/uL Lymphocytes # (1.0-4.8) k/uL ABG Total CO2 (19-24) mmol/L ABG O2 Saturation (94-97) % Sodium (137-145) mmol/L BUN (9-20) mg/dL Creatinine (0.66-1.25) mg/dL Glucose (74-99) mg/dL POC Glucose (mg/dL) 51 L 227 H (75-99) mg/dL Calcium (8.4-10.2) mg/dL ALT (4-49) U/L Total Protein (6.3-8.2) g/dL Albumin (3.5-5.0) g/dL Procalcitonin (0.02-0.09) ng/mL Crossmatch See Detail 07/27/20 07/27/20 07/27/20 Range/Units 11:45 12:15 13:04 WBC (3.8-10.6) k/uL RBC (4.30-5.90) m/uL Hgb (13.0-17.5) gm/dL Hct (39.0-53.0) % RDW (11.5-15.5) % Neutrophils # (1.3-7.7) k/uL Lymphocytes # (1.0-4.8) k/uL ABG Total CO2 (19-24) mmol/L ABG O2 Saturation (94-97) % Sodium (137-145) mmol/L BUN (9-20) mg/dL Creatinine (0.66-1.25) mg/dL Glucose (74-99) mg/dL POC Glucose (mg/dL) 235 H 247 H (75-99) mg/dL Calcium (8.4-10.2) mg/dL ALT (4-49) U/L Total Protein (6.3-8.2) g/dL Albumin (3.5-5.0) g/dL Procalcitonin 3.53 H (0.02-0.09) ng/mL Crossmatch 07/27/20 07/27/20 07/27/20 Range/Units 14:28 14:50 15:32 WBC 22.8 H (3.8-10.6) k/uL RBC 2.77 L (4.30-5.90) m/uL Hgb 8.8 L D (13.0-17.5) gm/dL Hct 26.6 L (39.0-53.0) % RDW 17.1 H (11.5-15.5) % Neutrophils # (1.3-7.7) k/uL Lymphocytes # (1.0-4.8) k/uL ABG Total CO2 (19-24) mmol/L ABG O2 Saturation (94-97) % Sodium (137-145) mmol/L BUN (9-20) mg/dL Creatinine (0.66-1.25) mg/dL Glucose (74-99) mg/dL POC Glucose (mg/dL) 219 H 216 H (75-99) mg/dL Calcium (8.4-10.2) mg/dL ALT (4-49) U/L Total Protein (6.3-8.2) g/dL Albumin (3.5-5.0) g/dL Procalcitonin (0.02-0.09) ng/mL Crossmatch 07/27/20 07/27/20 07/27/20 Range/Units 16:54 18:06 19:00 WBC (3.8-10.6) k/uL RBC (4.30-5.90) m/uL Hgb (13.0-17.5) gm/dL Hct (39.0-53.0) % RDW (11.5-15.5) % Neutrophils # (1.3-7.7) k/uL Lymphocytes # (1.0-4.8) k/uL ABG Total CO2 (19-24) mmol/L ABG O2 Saturation (94-97) % Sodium (137-145) mmol/L BUN (9-20) mg/dL Creatinine (0.66-1.25) mg/dL Glucose (74-99) mg/dL POC Glucose (mg/dL) 180 H 177 H 140 H (75-99) mg/dL Calcium (8.4-10.2) mg/dL ALT (4-49) U/L Total Protein (6.3-8.2) g/dL Albumin (3.5-5.0) g/dL Procalcitonin (0.02-0.09) ng/mL Crossmatch 07/27/20 07/27/20 07/27/20 Range/Units 19:56 21:10 22:08 WBC (3.8-10.6) k/uL RBC (4.30-5.90) m/uL Hgb (13.0-17.5) gm/dL Hct (39.0-53.0) % RDW (11.5-15.5) % Neutrophils # (1.3-7.7) k/uL Lymphocytes # (1.0-4.8) k/uL ABG Total CO2 (19-24) mmol/L ABG O2 Saturation (94-97) % Sodium (137-145) mmol/L BUN (9-20) mg/dL Creatinine (0.66-1.25) mg/dL Glucose (74-99) mg/dL POC Glucose (mg/dL) 130 H 112 H 150 H (75-99) mg/dL Calcium (8.4-10.2) mg/dL ALT (4-49) U/L Total Protein (6.3-8.2) g/dL Albumin (3.5-5.0) g/dL Procalcitonin (0.02-0.09) ng/mL Crossmatch 07/27/20 07/28/20 07/28/20 Range/Units 23:05 00:03 00:58 WBC (3.8-10.6) k/uL RBC (4.30-5.90) m/uL Hgb (13.0-17.5) gm/dL Hct (39.0-53.0) % RDW (11.5-15.5) % Neutrophils # (1.3-7.7) k/uL Lymphocytes # (1.0-4.8) k/uL ABG Total CO2 (19-24) mmol/L ABG O2 Saturation (94-97) % Sodium (137-145) mmol/L BUN (9-20) mg/dL Creatinine (0.66-1.25) mg/dL Glucose (74-99) mg/dL POC Glucose (mg/dL) 141 H 136 H 153 H (75-99) mg/dL Calcium (8.4-10.2) mg/dL ALT (4-49) U/L Total Protein (6.3-8.2) g/dL Albumin (3.5-5.0) g/dL Procalcitonin (0.02-0.09) ng/mL Crossmatch 07/28/20 07/28/20 07/28/20 Range/Units 01:59 03:05 04:00 WBC (3.8-10.6) k/uL RBC (4.30-5.90) m/uL Hgb (13.0-17.5) gm/dL Hct (39.0-53.0) % RDW (11.5-15.5) % Neutrophils # (1.3-7.7) k/uL Lymphocytes # (1.0-4.8) k/uL ABG Total CO2 (19-24) mmol/L ABG O2 Saturation (94-97) % Sodium 130 L (137-145) mmol/L BUN 72 H (9-20) mg/dL Creatinine 2.08 H (0.66-1.25) mg/dL Glucose 134 H (74-99) mg/dL POC Glucose (mg/dL) 123 H 133 H (75-99) mg/dL Calcium 7.8 L (8.4-10.2) mg/dL ALT 68 H (4-49) U/L Total Protein 4.4 L (6.3-8.2) g/dL Albumin 2.3 L (3.5-5.0) g/dL Procalcitonin (0.02-0.09) ng/mL Crossmatch 07/28/20 07/28/20 07/28/20 Range/Units 04:00 04:07 04:59 WBC 18.0 H (3.8-10.6) k/uL RBC 2.58 L (4.30-5.90) m/uL Hgb 8.4 L (13.0-17.5) gm/dL Hct 24.8 L (39.0-53.0) % RDW 16.7 H (11.5-15.5) % Neutrophils # 16.5 H (1.3-7.7) k/uL Lymphocytes # 0.1 L (1.0-4.8) k/uL ABG Total CO2 25 H (19-24) mmol/L ABG O2 Saturation 98.4 H (94-97) % Sodium (137-145) mmol/L BUN (9-20) mg/dL Creatinine (0.66-1.25) mg/dL Glucose (74-99) mg/dL POC Glucose (mg/dL) 140 H (75-99) mg/dL Calcium (8.4-10.2) mg/dL ALT (4-49) U/L Total Protein (6.3-8.2) g/dL Albumin (3.5-5.0) g/dL Procalcitonin (0.02-0.09) ng/mL Crossmatch 07/28/20 07/28/20 07/28/20 Range/Units 05:02 05:50 06:49 WBC (3.8-10.6) k/uL RBC (4.30-5.90) m/uL Hgb (13.0-17.5) gm/dL Hct (39.0-53.0) % RDW (11.5-15.5) % Neutrophils # (1.3-7.7) k/uL Lymphocytes # (1.0-4.8) k/uL ABG Total CO2 (19-24) mmol/L ABG O2 Saturation (94-97) % Sodium (137-145) mmol/L BUN (9-20) mg/dL Creatinine (0.66-1.25) mg/dL Glucose (74-99) mg/dL POC Glucose (mg/dL) 146 H 125 H 129 H (75-99) mg/dL Calcium (8.4-10.2) mg/dL ALT (4-49) U/L Total Protein (6.3-8.2) g/dL Albumin (3.5-5.0) g/dL Procalcitonin (0.02-0.09) ng/mL Crossmatch Microbiology - Last 24 Hours (Table) 07/27/20 11:50 Nasal Screen MRSA/MSSA - Preliminary Nasal Swab 07/24/20 19:03 Gram Stain - Final Sputum Sputum Culture - Final Pseudomonas fluorescens/putida - Imaging and Cardiology Chest x-ray: image reviewed Assessment and Plan Assessment: 1. Symptomatic triple-vessel coronary artery disease, status post 2 vessel CABG 2. Mild left ventricular dysfunction 3. Previuos history of stenting to his right coronary artery in 2002 4. Hypertension 5. Hyperlipidemia 6. Hypothyroid status post partial thyroidectomy 7. Previous tobacco dependence with bullous emphysema 8. Moderate chronic obstructive pulmonary disease with preoperative FEV1 of 56% of predicted value 9. Remote history of pneumonia 10. Type 2 diabetes mellitus with a preoperative hemoglobin A1c of 5.2% 11. Chronic kidney disease stage III with a baseline creatinine of 1.4-1.5 12. Family history of premature coronary artery disease with brother having had CABG at less than 50 years old 13. Postoperative acute blood loss anemia, expected outcome 14. Postoperative paroxysmal atrial fibrillation, unexpected, status post exclusion of the left atrial appendage 15. Pneumoperitoneum, unexpected 16. Acute on chronic kidney disease with hyponatremia, hyperkalemia 17. Pneumatosis of the small bowel, status post small bowel resection Plan: 1. Continue low dose aspirin, low-dose beta apolinar 2. Continue IV amiodarone for afib. Will restart anticoagulation when able 3. Ventilator management per nailing machine operator automatic. Bronchodilators per pulmonology management. Continue IV Zosyn. Will trial off sedation, possible SBT 4. Will monitor daily labs and chest x-rays. No transfusion 5. GI/DVT prophylaxis. 6. Pain control with current medication regimen. 7. Insulin management per Dr. Polk 8. Continue TPN per RD. No tube feedings per Dr. Dempsey 9. Nephrology following. Avoid nephrotoxic agents 10. Strict accurate intake and output, daily weight 11. More recommendations to follow based on patient's clinical course. Time with Patient: Greater than 30
[2020-07-28 08:05] LABS: Glucose,Whole Blood 128 mg/dL (75-99)
[2020-07-28] MEDS: BUDESONIDE 1 MG/2 ML NEBU INHALATION SCH ×2 (08:41→19:56)
[2020-07-28] MEDS: FORMOTEROL FUMARATE 20 MCG/2 ML NEBU INHALATION SCH ×2 (08:41→19:57)
[2020-07-28] MEDS: IPRATROPIUM-ALBUTEROL 3 ML NEB INHALATION SCH ×4 (08:41→19:57)
[2020-07-28 09:06] LABS: Glucose,Whole Blood 136 mg/dL (75-99)
[2020-07-28] MEDS: AMIODARONE 300 MG in DEXTROSE 5% IN WATER 250 ML IV SCH ×4 (09:36→21:13)
[2020-07-28] MEDS: SODIUM CHLORIDE 0.9% IVPB SCH (09:37)
[2020-07-28] MEDS: [UNRECOGNIZED DRUG - OTHER] IVPB SCH (09:37)
--- NOTE | 2020-07-28 10:02 | PN ---
PROGRESS NOTE This gentleman is status post bowel resection for gangrenous bowel and bypass surgery. He is on a vent. He was in sinus yesterday but is back in atrial fibrillation. The rate is controlled. Liver functions are normal. He is making fair amount of urine. He responds to questions. Vitals are stable. S1-S2 heard normally, irregular rhythm noted, short systolic murmur noted. LUNGS: Reveal improved air entry bilaterally with the ventilator assisted breaths sounds. The patient is going to be weaned today from a cardiac standpoint. Would continue amiodarone at 0.5 mg drip and see how he does. Prognosis remains guarded. MMODL / IJN: [id number] /
[2020-07-28 10:32] LABS: Glucose,Whole Blood 145 mg/dL (75-99)
--- NOTE | 2020-07-28 10:41 | P.PN ---
Subjective Progress Note Date: 07/28/20 Pt doing well on weaning trial at my visit, plan for extubation later today. Sugars are well controlled on insulin gtt. Pressures are improved. Vancomycin/Fluconazole were not started yesterday. MRSA screen pending. Pt is awake off sedation. Objective - Vital Signs Vital signs: Vital Signs Temp 97.5 F L 07/28/20 08:00 Pulse 93 07/28/20 10:00 Resp 32 H 07/28/20 10:00 BP 121/85 07/28/20 10:00 Pulse Ox 99 07/28/20 10:00 Intake & Output 07/27/20 07/28/20 07/28/20 18:59 06:59 18:59 Intake Total 9764.597 9604.835 377.917 Output Total 1925 1455 415 Balance -350.755 -112.165 -37.083 Weight 113.7 kg 109.4 kg Intake: IV 1006 1032 338 Mvi, Adult No.4 with Vit 720 720 180 K 10 ml Trace (Conc-1Ml/ Dose) 1 ml Sodium Chloride 2.5MEQ/ml Vial 15 meq Calcium Gluconate 1 gm Sodium Phosphate 15 mmol In Amino Acid 5%- D15w 1,000 ml @ 60 mls/hr IV .BY DURATION [facility] Rx#: [id number] Piperacillin-Tazobactam 3 100 100 .375 gm In Sodium Chloride 0.9% 100 ml @ 25 mls/hr IVPB Q8HR [facility] Rx# :[id number] Sodium Chloride 0.9% 1, 120 240 40 000 ml @ 20 mls/hr IV . Q24H [facility] Rx#:[id number] pressure bag 66 72 18 Intake, IV Titration 258.245 310.835 39.917 Amount Amiodarone 300 mg In 87.292 150.833 Dextrose 5% in Water 250 ml @ 0.5 MG/MIN 25 mls/hr IV .Q10H [facility] Rx#: [id number] Dexmedetomidine/0.9% NaCl 100 (Pmx) 400 mcg In Empty Bag 1 bag @ Titrate IV . Q0M [facility] Rx#:[id number] Dexmedetomidine/0.9% NaCl 101.043 8.338 (Pmx) 400 mcg In Empty Bag 1 bag @ Titrate IV . Q0M [facility] Rx#:[id number] Insulin Regular 100 unit 23.988 In Sodium Chloride 0.9% 100 ml @ Per Protocol IV .Q0M [facility] Rx#:[id number] Insulin Regular 100 unit 46.965 58.959 31.579 In Sodium Chloride 0.9% 100 ml @ Per Protocol IV .Q0M [facility] Rx#:[id number] Blood Product 310 Rc As-1 Unit 310 [id number] Output: Urine 1925 1455 415 Other: Voiding Method Indwelling Catheter Indwelling Catheter ABP, PAP, CO, CI - Last Documented Arterial Blood Pressure 140/66 Pulmonary Artery Pressure 33/14 Cardiac Output 6.7 Cardiac Index 3.1 - Exam Gen: intubated, sedated HEENT: normocephalic, atraumatic, moist mucous membranes Resp: Vented: TV 600, RR 14, PEEP 5, FiO2 50% CVS: good distal perfusion x 4, RRR, no murmurs, clicks, gallops GI: soft, NTTP, ND : no SPT, no CVAT, malagon catheter is present MSK: + pitting edema, no clubbing Neuro: non-focal, no sensory deficits, appropriate tone - Labs CBC & Chem 7: 07/28/20 04:00 07/28/20 04:00 Labs: Abnormal Lab Results - Last 24 Hours (Table) 07/24/20 07/27/20 07/27/20 Range/Units 16:56 11:21 11:45 WBC (3.8-10.6) k/uL RBC (4.30-5.90) m/uL Hgb (13.0-17.5) gm/dL Hct (39.0-53.0) % RDW (11.5-15.5) % Neutrophils # (1.3-7.7) k/uL Lymphocytes # (1.0-4.8) k/uL ABG Total CO2 (19-24) mmol/L ABG O2 Saturation (94-97) % Sodium (137-145) mmol/L BUN (9-20) mg/dL Creatinine (0.66-1.25) mg/dL Glucose (74-99) mg/dL POC Glucose (mg/dL) 227 H (75-99) mg/dL Calcium (8.4-10.2) mg/dL ALT (4-49) U/L Total Protein (6.3-8.2) g/dL Albumin (3.5-5.0) g/dL Procalcitonin 3.53 H (0.02-0.09) ng/mL Crossmatch See Detail 07/27/20 07/27/20 07/27/20 Range/Units 12:15 13:04 14:28 WBC (3.8-10.6) k/uL RBC (4.30-5.90) m/uL Hgb (13.0-17.5) gm/dL Hct (39.0-53.0) % RDW (11.5-15.5) % Neutrophils # (1.3-7.7) k/uL Lymphocytes # (1.0-4.8) k/uL ABG Total CO2 (19-24) mmol/L ABG O2 Saturation (94-97) % Sodium (137-145) mmol/L BUN (9-20) mg/dL Creatinine (0.66-1.25) mg/dL Glucose (74-99) mg/dL POC Glucose (mg/dL) 235 H 247 H 219 H (75-99) mg/dL Calcium (8.4-10.2) mg/dL ALT (4-49) U/L Total Protein (6.3-8.2) g/dL Albumin (3.5-5.0) g/dL Procalcitonin (0.02-0.09) ng/mL Crossmatch 07/27/20 07/27/20 07/27/20 Range/Units 14:50 15:32 16:54 WBC 22.8 H (3.8-10.6) k/uL RBC 2.77 L (4.30-5.90) m/uL Hgb 8.8 L D (13.0-17.5) gm/dL Hct 26.6 L (39.0-53.0) % RDW 17.1 H (11.5-15.5) % Neutrophils # (1.3-7.7) k/uL Lymphocytes # (1.0-4.8) k/uL ABG Total CO2 (19-24) mmol/L ABG O2 Saturation (94-97) % Sodium (137-145) mmol/L BUN (9-20) mg/dL Creatinine (0.66-1.25) mg/dL Glucose (74-99) mg/dL POC Glucose (mg/dL) 216 H 180 H (75-99) mg/dL Calcium (8.4-10.2) mg/dL ALT (4-49) U/L Total Protein (6.3-8.2) g/dL Albumin (3.5-5.0) g/dL Procalcitonin (0.02-0.09) ng/mL Crossmatch 07/27/20 07/27/20 07/27/20 Range/Units 18:06 19:00 19:56 WBC (3.8-10.6) k/uL RBC (4.30-5.90) m/uL Hgb (13.0-17.5) gm/dL Hct (39.0-53.0) % RDW (11.5-15.5) % Neutrophils # (1.3-7.7) k/uL Lymphocytes # (1.0-4.8) k/uL ABG Total CO2 (19-24) mmol/L ABG O2 Saturation (94-97) % Sodium (137-145) mmol/L BUN (9-20) mg/dL Creatinine (0.66-1.25) mg/dL Glucose (74-99) mg/dL POC Glucose (mg/dL) 177 H 140 H 130 H (75-99) mg/dL Calcium (8.4-10.2) mg/dL ALT (4-49) U/L Total Protein (6.3-8.2) g/dL Albumin (3.5-5.0) g/dL Procalcitonin (0.02-0.09) ng/mL Crossmatch 07/27/20 07/27/20 07/27/20 Range/Units 21:10 22:08 23:05 WBC (3.8-10.6) k/uL RBC (4.30-5.90) m/uL Hgb (13.0-17.5) gm/dL Hct (39.0-53.0) % RDW (11.5-15.5) % Neutrophils # (1.3-7.7) k/uL Lymphocytes # (1.0-4.8) k/uL ABG Total CO2 (19-24) mmol/L ABG O2 Saturation (94-97) % Sodium (137-145) mmol/L BUN (9-20) mg/dL Creatinine (0.66-1.25) mg/dL Glucose (74-99) mg/dL POC Glucose (mg/dL) 112 H 150 H 141 H (75-99) mg/dL Calcium (8.4-10.2) mg/dL ALT (4-49) U/L Total Protein (6.3-8.2) g/dL Albumin (3.5-5.0) g/dL Procalcitonin (0.02-0.09) ng/mL Crossmatch 07/28/20 07/28/20 07/28/20 Range/Units 00:03 00:58 01:59 WBC (3.8-10.6) k/uL RBC (4.30-5.90) m/uL Hgb (13.0-17.5) gm/dL Hct (39.0-53.0) % RDW (11.5-15.5) % Neutrophils # (1.3-7.7) k/uL Lymphocytes # (1.0-4.8) k/uL ABG Total CO2 (19-24) mmol/L ABG O2 Saturation (94-97) % Sodium (137-145) mmol/L BUN (9-20) mg/dL Creatinine (0.66-1.25) mg/dL Glucose (74-99) mg/dL POC Glucose (mg/dL) 136 H 153 H 123 H (75-99) mg/dL Calcium (8.4-10.2) mg/dL ALT (4-49) U/L Total Protein (6.3-8.2) g/dL Albumin (3.5-5.0) g/dL Procalcitonin (0.02-0.09) ng/mL Crossmatch 07/28/20 07/28/20 07/28/20 Range/Units 03:05 04:00 04:00 WBC 18.0 H (3.8-10.6) k/uL RBC 2.58 L (4.30-5.90) m/uL Hgb 8.4 L (13.0-17.5) gm/dL Hct 24.8 L (39.0-53.0) % RDW 16.7 H (11.5-15.5) % Neutrophils # 16.5 H (1.3-7.7) k/uL Lymphocytes # 0.1 L (1.0-4.8) k/uL ABG Total CO2 (19-24) mmol/L ABG O2 Saturation (94-97) % Sodium 130 L (137-145) mmol/L BUN 72 H (9-20) mg/dL Creatinine 2.08 H (0.66-1.25) mg/dL Glucose 134 H (74-99) mg/dL POC Glucose (mg/dL) 133 H (75-99) mg/dL Calcium 7.8 L (8.4-10.2) mg/dL ALT 68 H (4-49) U/L Total Protein 4.4 L (6.3-8.2) g/dL Albumin 2.3 L (3.5-5.0) g/dL Procalcitonin (0.02-0.09) ng/mL Crossmatch 07/28/20 07/28/20 07/28/20 Range/Units 04:07 04:59 05:02 WBC (3.8-10.6) k/uL RBC (4.30-5.90) m/uL Hgb (13.0-17.5) gm/dL Hct (39.0-53.0) % RDW (11.5-15.5) % Neutrophils # (1.3-7.7) k/uL Lymphocytes # (1.0-4.8) k/uL ABG Total CO2 25 H (19-24) mmol/L ABG O2 Saturation 98.4 H (94-97) % Sodium (137-145) mmol/L BUN (9-20) mg/dL Creatinine (0.66-1.25) mg/dL Glucose (74-99) mg/dL POC Glucose (mg/dL) 140 H 146 H (75-99) mg/dL Calcium (8.4-10.2) mg/dL ALT (4-49) U/L Total Protein (6.3-8.2) g/dL Albumin (3.5-5.0) g/dL Procalcitonin (0.02-0.09) ng/mL Crossmatch 07/28/20 07/28/20 07/28/20 Range/Units 05:50 06:49 08:04 WBC (3.8-10.6) k/uL RBC (4.30-5.90) m/uL Hgb (13.0-17.5) gm/dL Hct (39.0-53.0) % RDW (11.5-15.5) % Neutrophils # (1.3-7.7) k/uL Lymphocytes # (1.0-4.8) k/uL ABG Total CO2 (19-24) mmol/L ABG O2 Saturation (94-97) % Sodium (137-145) mmol/L BUN (9-20) mg/dL Creatinine (0.66-1.25) mg/dL Glucose (74-99) mg/dL POC Glucose (mg/dL) 125 H 129 H 128 H (75-99) mg/dL Calcium (8.4-10.2) mg/dL ALT (4-49) U/L Total Protein (6.3-8.2) g/dL Albumin (3.5-5.0) g/dL Procalcitonin (0.02-0.09) ng/mL Crossmatch 07/28/20 07/28/20 Range/Units 09:04 10:31 WBC (3.8-10.6) k/uL RBC (4.30-5.90) m/uL Hgb (13.0-17.5) gm/dL Hct (39.0-53.0) % RDW (11.5-15.5) % Neutrophils # (1.3-7.7) k/uL Lymphocytes # (1.0-4.8) k/uL ABG Total CO2 (19-24) mmol/L ABG O2 Saturation (94-97) % Sodium (137-145) mmol/L BUN (9-20) mg/dL Creatinine (0.66-1.25) mg/dL Glucose (74-99) mg/dL POC Glucose (mg/dL) 136 H 145 H (75-99) mg/dL Calcium (8.4-10.2) mg/dL ALT (4-49) U/L Total Protein (6.3-8.2) g/dL Albumin (3.5-5.0) g/dL Procalcitonin (0.02-0.09) ng/mL Crossmatch Microbiology - Last 24 Hours (Table) 07/27/20 11:50 Nasal Screen MRSA/MSSA - Preliminary Nasal Swab 07/24/20 19:03 Gram Stain - Final Sputum Sputum Culture - Final Pseudomonas fluorescens/putida Assessment and Plan Assessment: 1. CAD s/p CABG with 2v bypass, PABLO to LAD, and SVG to posterior decending coronary artery 2. Paroxysmal Atrial Fibrillation, with RVR 3. 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 Pneumatosis, Ischemic Bowel, s/p small bowel resection 5. Acute Blood Loss Anemia, post-operative, resolved 6. Pneumoperitoneum secondary to chest tubes, resolving 7. CONNOR superimposed on CKD, stage III, worsening 8. Hypertension, essential 9. Hyperlipidemia 10. Type II DM, uncontrolled 11. Hypothyroidism 12. Obesity, BMI 30.5 13. Hyponatremia and Hyperkalemia 80 year old man with history of COPD, CKD III, HTN/HLD/CAD/DM, Obesity presented for symptomatic CAD and underwent 2v CABG with post-operative course complicated by respiratory failure secondary to COPD exacerbation, blood loss anemia, paroxysmal atrial fibrillation with RVR, and metabolic derangements. DM 2 - hold metformin - Inulin subcutaneous with sliding scale insulin coverage, check blood sugars every before meals and at bedtime, Levemir added on 07/21. - Blood sugars currently controlled, follow blood sugars closely - A1C from 06/21/2020 5.2, anticipate discharge home back on metformin which may be able to come off in the near future in the outpatient setting. Small Bowel Ischemia - surgery consult - POD #3 s/p resection - LR @ 75cc/hr, can uptitrate as patient appears dry on 07/25 - on zosyn - MRSA nares pending A-fib with RVR On amio and eliquis Off cardizem gtt CONNOR on CKD stage III Baseline cr 1.4-1.5 Likely cardiorenal syndrome, patient received contrast earlier in the admission. Try to avoid IV fluids Recheck in am Avoid nephrotoxic meds Nephrology is following Acute hyponatremia Likely sec to renal failure Monitor Nephrology consulted, checking urine and plasma osmolalities as well as urine sodium. Hyperkalemia Kayexalate 15 g, follow K in a.m. Pneumoperitoneum suspect secondary to mediastinal chest tubes -Tube d/melody -Resolved. Constipation On Senokot, MiraLAX Had a bowel movement today Acute blood loss anemia and thrombocytopenia, anticipated outcome of surgery - follow CBC - transfuse as indicated COPD with acute exacerbation - On steroids, we'll wean down today from 60 to 40 mg every 6 hours. - DuoNebs - on spiriva and advair at home Coronary artery disease -Status post coronary artery bypass grafting -Cardiothoracic and cardiology following HTN - meds per CT surgery - follow BP Hypothyroidism status post partial thyroidectomy - synthroid Morbid obesity with BMI 30.5 -Outpatient structured weight loss Chronic: ADDY Jacobs's Thank you for allowing us to participate in the care of this pleasant patient. Do not hesitate to contact us with questions. Someone can be reached from the [facility] hospitalist group all hours of the day at [phone] or via perfect serve.
[2020-07-28 11:11] LABS: Glucose,Whole Blood 152 mg/dL (75-99)
[2020-07-28] MEDS ORDERED: FUROSEMIDE 10 MG/ML 4 ML VIAL IV ONE (11:29)
[2020-07-28 12:15] LABS: Glucose,Whole Blood 143 mg/dL (75-99)
--- NOTE | 2020-07-28 12:53 | PN ---
PROGRESS NOTE Patient is seen for followup for acute kidney injury. He currently is on the vent. Patient is awake, but he was being weaned, but was not able to continue his weaning. He has had good urine output. Serum sodium is stable at about 130. Serum creatinine has also stabilized at about 2.0 mg/dL. PHYSICAL EXAMINATION: On examination today, blood pressure was 169/69, heart rate 93 per minute, he is afebrile./ Examination of the heart S1, S2. Examination of the lungs, bilateral breath sounds are heard. Abdomen is soft. Incision is intact. Examination of the lower extremities shows edema 2+ bilaterally upper and lower extremities. LABS: Show sodium 130, potassium 4.4, chloride 102, BUN 72, creatinine 2.08, hemoglobin of 8.4 g/dL. ASSESSMENT: 1. Acute kidney injury ATN currently nonoliguric associated with hemodynamic instability. 2. Hyponatremia, currently hypervolemic maintained on TPN. Serum sodium is currently stable. 3. Status post coronary artery bypass surgery x3. Postop day #10. 4. Bowel ischemia, postoperatively and pneumatosis, status post small-bowel resection. 5. Volume overload status post IV Lasix yesterday. 6. Anemia with hemoglobin down to about 6 yesterday, status post packed RBCs transfusion. No active bleeding noted at this time. 7. Iron deficiency, currently maintained on IV iron. PLAN: Recommend gentle diuresis. Continue IV iron for at least one more day. Continue to avoid nephrotoxic agents. MMODL / IJN: [id number] /
[2020-07-28 13:06] LABS: Glucose,Whole Blood 158 mg/dL (75-99)
--- NOTE | 2020-07-28 13:12 | P.PN ---
Subjective Progress Note Date: 07/28/20 CHIEF COMPLAINT: Status post CABG 2 vessels HISTORY OF PRESENT ILLNESS: Patient remains in the ICU. He is intubated and sedated. Patient is postop day #4 status post small bowel resection for ischemic small bowel with evidence of pneumatosis. Patient is undergoing a weaning trial from vent today. He is off of pressor support. Patient's white count is elevated at 18. He is on TPN for nutrition support. He remains on IV Zosyn. Which is sensitive to the Pseudomonas in his sputum. Afebrile. He moglobin has gone up to 8.4 after unit of blood. Cr 2.08 Chest x-ray shows bibasilar infiltrates correlate for atypical pneumonia. NG tube output about 400 mL bilious fluid PHYSICAL EXAM: VITAL SIGNS: Reviewed. GENERAL: Well-developed in no acute distress. HEENT: No sclera icterus. Extraocular movements grossly intact. Moist buccal mucosa. Head is atraumatic, normocephalic. ABDOMEN: Soft mildly distended NEUROLOGIC: Intubated currently off sedation able to open eyes ASSESSMENT: 1. Ischemic small bowel with evidence of pneumatosis status post small bowel resection 2. Acute hypoxic respiratory failure requiring mechanical ventilation 3. symptomatic triple-vessel coronary artery disease status post 2 vessel coronary bypass grafting surgery 4. History of coronary artery disease with stent placement to the RCA in 2002 5. Hypertension 6. Diabetes mellitus type 2 PLAN: -Due to elevated white count we'll check a computed tomography scan of the chest abdomen and pelvis with oral contrast -Continue IV antibiotics -Continue to hold Eliquis for now -Continue TPN for nutrition support -Continue supportive care -DVT prophylaxis subcu heparin and GI prophylaxis Protonix Physician Bank Clerk note has been reviewed by physician. Signing provider agrees with the documented findings, assessment, and plan of care. Objective - Vital Signs Vital signs: Vital Signs Temp 96.8 F L 07/28/20 12:00 Pulse 89 07/28/20 12:00 Resp 24 07/28/20 12:00 BP 121/85 07/28/20 10:00 Pulse Ox 100 07/28/20 12:00 Intake & Output 07/27/20 07/28/20 07/28/20 18:59 06:59 18:59 Intake Total 4580.316 4537.835 663.172 Output Total 1925 1455 1415 Balance -350.755 -112.165 -751.828 Weight 113.7 kg 109.4 kg Intake: IV 1006 1032 536 Mvi, Adult No.4 with Vit 720 720 300 K 10 ml Trace (Conc-1Ml/ Dose) 1 ml Sodium Chloride 2.5MEQ/ml Vial 15 meq Calcium Gluconate 1 gm Sodium Phosphate 15 mmol In Amino Acid 5%- D15w 1,000 ml @ 60 mls/hr IV .BY DURATION [facility] Rx#: [id number] Piperacillin-Tazobactam 3 100 100 .375 gm In Sodium Chloride 0.9% 100 ml @ 25 mls/hr IVPB Q8HR [facility] Rx# :[id number] Sodium Chloride 0.9% 1, 120 240 100 000 ml @ 20 mls/hr IV . Q24H [facility] Rx#:[id number] pressure bag 66 72 36 Intake, IV Titration 258.245 310.835 127.172 Amount Amiodarone 300 mg In 87.292 150.833 Dextrose 5% in Water 250 ml @ 0.5 MG/MIN 25 mls/hr IV .Q10H [facility] Rx#: [id number] Dexmedetomidine/0.9% NaCl 100 (Pmx) 400 mcg In Empty Bag 1 bag @ Titrate IV . Q0M [facility] Rx#:[id number] Dexmedetomidine/0.9% NaCl 101.043 8.338 (Pmx) 400 mcg In Empty Bag 1 bag @ Titrate IV . Q0M [facility] Rx#:[id number] Insulin Regular 100 unit 23.988 In Sodium Chloride 0.9% 100 ml @ Per Protocol IV .Q0M [facility] Rx#:[id number] Insulin Regular 100 unit 46.965 58.959 43.834 In Sodium Chloride 0.9% 100 ml @ Per Protocol IV .Q0M [facility] Rx#:[id number] Mvi, Adult No.4 with Vit 75 K 10 ml Trace (Conc-1Ml/ Dose) 1 ml Sodium Chloride 2.5MEQ/ml Vial 15 meq Calcium Gluconate 1 gm Sodium Phosphate 15 mmol In Amino Acid 5%- D15w 1,000 ml @ 60 mls/hr IV .BY DURATION [facility] Rx#: [id number] Blood Product 310 Rc As-1 Unit 310 [id number] Output: Gastric Drainage 575 Urine 1925 1455 840 Other: Voiding Method Indwelling Catheter Indwelling Catheter ABP, PAP, CO, CI - Last Documented Arterial Blood Pressure 137/60 Pulmonary Artery Pressure 33/14 Cardiac Output 6.7 Cardiac Index 3.1 - Labs CBC & Chem 7: 07/28/20 04:00 07/28/20 04:00 Labs: Abnormal Lab Results - Last 24 Hours (Table) 07/27/20 07/27/20 07/27/20 Range/Units 11:45 14:28 14:50 WBC 22.8 H (3.8-10.6) k/uL RBC 2.77 L (4.30-5.90) m/uL Hgb 8.8 L D (13.0-17.5) gm/dL Hct 26.6 L (39.0-53.0) % RDW 17.1 H (11.5-15.5) % Neutrophils # (1.3-7.7) k/uL Lymphocytes # (1.0-4.8) k/uL ABG Total CO2 (19-24) mmol/L ABG O2 Saturation (94-97) % Sodium (137-145) mmol/L BUN (9-20) mg/dL Creatinine (0.66-1.25) mg/dL Glucose (74-99) mg/dL POC Glucose (mg/dL) 219 H (75-99) mg/dL Calcium (8.4-10.2) mg/dL ALT (4-49) U/L Total Protein (6.3-8.2) g/dL Albumin (3.5-5.0) g/dL Procalcitonin 3.53 H (0.02-0.09) ng/mL 07/27/20 07/27/20 07/27/20 Range/Units 15:32 16:54 18:06 WBC (3.8-10.6) k/uL RBC (4.30-5.90) m/uL Hgb (13.0-17.5) gm/dL Hct (39.0-53.0) % RDW (11.5-15.5) % Neutrophils # (1.3-7.7) k/uL Lymphocytes # (1.0-4.8) k/uL ABG Total CO2 (19-24) mmol/L ABG O2 Saturation (94-97) % Sodium (137-145) mmol/L BUN (9-20) mg/dL Creatinine (0.66-1.25) mg/dL Glucose (74-99) mg/dL POC Glucose (mg/dL) 216 H 180 H 177 H (75-99) mg/dL Calcium (8.4-10.2) mg/dL ALT (4-49) U/L Total Protein (6.3-8.2) g/dL Albumin (3.5-5.0) g/dL Procalcitonin (0.02-0.09) ng/mL 07/27/20 07/27/20 07/27/20 Range/Units 19:00 19:56 21:10 WBC (3.8-10.6) k/uL RBC (4.30-5.90) m/uL Hgb (13.0-17.5) gm/dL Hct (39.0-53.0) % RDW (11.5-15.5) % Neutrophils # (1.3-7.7) k/uL Lymphocytes # (1.0-4.8) k/uL ABG Total CO2 (19-24) mmol/L ABG O2 Saturation (94-97) % Sodium (137-145) mmol/L BUN (9-20) mg/dL Creatinine (0.66-1.25) mg/dL Glucose (74-99) mg/dL POC Glucose (mg/dL) 140 H 130 H 112 H (75-99) mg/dL Calcium (8.4-10.2) mg/dL ALT (4-49) U/L Total Protein (6.3-8.2) g/dL Albumin (3.5-5.0) g/dL Procalcitonin (0.02-0.09) ng/mL 07/27/20 07/27/20 07/28/20 Range/Units 22:08 23:05 00:03 WBC (3.8-10.6) k/uL RBC (4.30-5.90) m/uL Hgb (13.0-17.5) gm/dL Hct (39.0-53.0) % RDW (11.5-15.5) % Neutrophils # (1.3-7.7) k/uL Lymphocytes # (1.0-4.8) k/uL ABG Total CO2 (19-24) mmol/L ABG O2 Saturation (94-97) % Sodium (137-145) mmol/L BUN (9-20) mg/dL Creatinine (0.66-1.25) mg/dL Glucose (74-99) mg/dL POC Glucose (mg/dL) 150 H 141 H 136 H (75-99) mg/dL Calcium (8.4-10.2) mg/dL ALT (4-49) U/L Total Protein (6.3-8.2) g/dL Albumin (3.5-5.0) g/dL Procalcitonin (0.02-0.09) ng/mL 07/28/20 07/28/20 07/28/20 Range/Units 00:58 01:59 03:05 WBC (3.8-10.6) k/uL RBC (4.30-5.90) m/uL Hgb (13.0-17.5) gm/dL Hct (39.0-53.0) % RDW (11.5-15.5) % Neutrophils # (1.3-7.7) k/uL Lymphocytes # (1.0-4.8) k/uL ABG Total CO2 (19-24) mmol/L ABG O2 Saturation (94-97) % Sodium (137-145) mmol/L BUN (9-20) mg/dL Creatinine (0.66-1.25) mg/dL Glucose (74-99) mg/dL POC Glucose (mg/dL) 153 H 123 H 133 H (75-99) mg/dL Calcium (8.4-10.2) mg/dL ALT (4-49) U/L Total Protein (6.3-8.2) g/dL Albumin (3.5-5.0) g/dL Procalcitonin (0.02-0.09) ng/mL 07/28/20 07/28/20 07/28/20 Range/Units 04:00 04:00 04:07 WBC 18.0 H (3.8-10.6) k/uL RBC 2.58 L (4.30-5.90) m/uL Hgb 8.4 L (13.0-17.5) gm/dL Hct 24.8 L (39.0-53.0) % RDW 16.7 H (11.5-15.5) % Neutrophils # 16.5 H (1.3-7.7) k/uL Lymphocytes # 0.1 L (1.0-4.8) k/uL ABG Total CO2 (19-24) mmol/L ABG O2 Saturation (94-97) % Sodium 130 L (137-145) mmol/L BUN 72 H (9-20) mg/dL Creatinine 2.08 H (0.66-1.25) mg/dL Glucose 134 H (74-99) mg/dL POC Glucose (mg/dL) 140 H (75-99) mg/dL Calcium 7.8 L (8.4-10.2) mg/dL ALT 68 H (4-49) U/L Total Protein 4.4 L (6.3-8.2) g/dL Albumin 2.3 L (3.5-5.0) g/dL Procalcitonin (0.02-0.09) ng/mL 07/28/20 07/28/20 07/28/20 Range/Units 04:59 05:02 05:50 WBC (3.8-10.6) k/uL RBC (4.30-5.90) m/uL Hgb (13.0-17.5) gm/dL Hct (39.0-53.0) % RDW (11.5-15.5) % Neutrophils # (1.3-7.7) k/uL Lymphocytes # (1.0-4.8) k/uL ABG Total CO2 25 H (19-24) mmol/L ABG O2 Saturation 98.4 H (94-97) % Sodium (137-145) mmol/L BUN (9-20) mg/dL Creatinine (0.66-1.25) mg/dL Glucose (74-99) mg/dL POC Glucose (mg/dL) 146 H 125 H (75-99) mg/dL Calcium (8.4-10.2) mg/dL ALT (4-49) U/L Total Protein (6.3-8.2) g/dL Albumin (3.5-5.0) g/dL Procalcitonin (0.02-0.09) ng/mL 07/28/20 07/28/20 07/28/20 Range/Units 06:49 08:04 09:04 WBC (3.8-10.6) k/uL RBC (4.30-5.90) m/uL Hgb (13.0-17.5) gm/dL Hct (39.0-53.0) % RDW (11.5-15.5) % Neutrophils # (1.3-7.7) k/uL Lymphocytes # (1.0-4.8) k/uL ABG Total CO2 (19-24) mmol/L ABG O2 Saturation (94-97) % Sodium (137-145) mmol/L BUN (9-20) mg/dL Creatinine (0.66-1.25) mg/dL Glucose (74-99) mg/dL POC Glucose (mg/dL) 129 H 128 H 136 H (75-99) mg/dL Calcium (8.4-10.2) mg/dL ALT (4-49) U/L Total Protein (6.3-8.2) g/dL Albumin (3.5-5.0) g/dL Procalcitonin (0.02-0.09) ng/mL 07/28/20 07/28/20 07/28/20 Range/Units 10:31 11:09 12:14 WBC (3.8-10.6) k/uL RBC (4.30-5.90) m/uL Hgb (13.0-17.5) gm/dL Hct (39.0-53.0) % RDW (11.5-15.5) % Neutrophils # (1.3-7.7) k/uL Lymphocytes # (1.0-4.8) k/uL ABG Total CO2 (19-24) mmol/L ABG O2 Saturation (94-97) % Sodium (137-145) mmol/L BUN (9-20) mg/dL Creatinine (0.66-1.25) mg/dL Glucose (74-99) mg/dL POC Glucose (mg/dL) 145 H 152 H 143 H (75-99) mg/dL Calcium (8.4-10.2) mg/dL ALT (4-49) U/L Total Protein (6.3-8.2) g/dL Albumin (3.5-5.0) g/dL Procalcitonin (0.02-0.09) ng/mL 07/28/20 Range/Units 13:05 WBC (3.8-10.6) k/uL RBC (4.30-5.90) m/uL Hgb (13.0-17.5) gm/dL Hct (39.0-53.0) % RDW (11.5-15.5) % Neutrophils # (1.3-7.7) k/uL Lymphocytes # (1.0-4.8) k/uL ABG Total CO2 (19-24) mmol/L ABG O2 Saturation (94-97) % Sodium (137-145) mmol/L BUN (9-20) mg/dL Creatinine (0.66-1.25) mg/dL Glucose (74-99) mg/dL POC Glucose (mg/dL) 158 H (75-99) mg/dL Calcium (8.4-10.2) mg/dL ALT (4-49) U/L Total Protein (6.3-8.2) g/dL Albumin (3.5-5.0) g/dL Procalcitonin (0.02-0.09) ng/mL Microbiology - Last 24 Hours (Table) 07/27/20 11:50 Nasal Screen MRSA/MSSA - Preliminary Nasal Swab 07/24/20 19:03 Gram Stain - Final Sputum Sputum Culture - Final Pseudomonas fluorescens/putida
[2020-07-28] MEDS: HYDROmorphone 1 MG/ML 1 ML SYRINGE IVP PRN ×2 (13:47→21:10)
[2020-07-28] MEDS ORDERED: [UNRECOGNIZED DRUG - OTHER] IVPB SCH (14:00)
[2020-07-28] MEDS ORDERED: SODIUM CHLORIDE 0.9% IVPB SCH (14:00)
[2020-07-28 14:12] LABS: Glucose,Whole Blood 203 mg/dL (75-99)
[2020-07-28] MEDS: IOPAMIDOL CONTRAST (ORAL USE) VIAL PO PRN ×2 (15:02→16:00)
[2020-07-28 15:13] LABS: Glucose,Whole Blood 154 mg/dL (75-99)
[2020-07-28 16:12] LABS: Glucose,Whole Blood 143 mg/dL (75-99)
[2020-07-28 17:21] LABS: Glucose,Whole Blood 124 mg/dL (75-99)
[2020-07-28] MEDS: FAT EMULSION 20% 250 ML in EMPTY BAG 1 BAG IV SCH (17:24)
--- NOTE | 2020-07-28 17:28 | CT ---
EXAMINATION TYPE: CT ChestAbdPelvis wo con DATE OF EXAM: 07/28/2020 COMPARISON: CT abdomen pelvis 07/24/2020 HISTORY: Post OP follow up CT DLP: 1263.8 mGycm Automated exposure control for dose reduction was used. There is moderate bilateral pleural effusions. There is bilateral lower lobe pulmonary airspace conso lidation and atelectasis. There is mild to moderate pericardial effusion. There is coronary artery ca lcification. There is no mediastinal adenopathy. There are no hilar masses. Liver shows no focal defect. There are large calcified gallstones. Spleen is intact. There is mild ab dominal ascites. There is no evidence of pancreatic mass. The stomach is intact. There is nasogastric tube. There is no adrenal mass. Kidneys have normal size. There is no hydronephrosis. Ureters are not dilat ed. Abdominal aorta is atheromatous. There is mild abdominal aortic aneurysm. The upper abdominal aor ta measures up to 2.9 cm. 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 There is no retroperitoneal adenopathy. Bladder distends smoothly. There is some air in the urinary bladder. The re is Villafana catheter in the bladder. There is bilateral inguinal hernias that contain fat. There is a lso small amount of ascites fluid in the right inguinal hernia. There are multiple dilated loops of distal small bowel. There are surgical clips in the right mid abd omen which appears to be the transition point. Distal small bowel measures up to 4.2 cm. Thoracic and lumbar vertebra have normal alignment. There is spurring in the thoracic and lumbar spin e. There is no compression fracture. The sternum is intact. There are sternal wires. The bony pelvis is intact. Hip joints are intact. IMPRESSION: Dilated small bowel in the mid abdomen consistent with partial obstruction or small bowel ileus. The oral contrast reaches the colon down to the proximal sigmoid colon. There is clearing of the intramur al small bowel air compared to old exam. There is mild abdominal ascites that is new compared to old exam. There is bilateral lower lobe pulmonary consolidation and pleural fluid increased compared to old exa m. Pericardial effusion slightly increased compared to old exam.
[2020-07-28] MEDS: 1: MVI, ADULT NO.4 WITH VIT K 10 ML, TRACE (CONC-1ML/DOSE) 1 ML, SODIUM CHLORIDE 2.5MEQ/ IV SCH ×6 (17:29)
[2020-07-28 18:13] LABS: Glucose,Whole Blood 143 mg/dL (75-99)
[2020-07-28] MEDS ORDERED: HEPARIN SODIUM,PORCINE 5,000 UNIT/ML 1 ML VIAL IV PRN (19:04)
[2020-07-28] MEDS ORDERED: HEPARIN SODIUM,PORCINE 5,000 UNIT/ML 1 ML VIAL IV ONE (19:04)
[2020-07-28 19:07] LABS: Glucose,Whole Blood 149 mg/dL (75-99)
[2020-07-28] MEDS: HEPARIN SOD,PORK IN 0.45% NACL 25,000 UNIT in 0.45% NACL 1 250ML.BAG IV SCH (19:28)
[2020-07-28 19:52] LABS: Partial Thromboplastin Time 32.7 sec (22.0-30.0); Prothrombin Time 10.2 sec (9.0-12.0)
[2020-07-28 21:05] LABS: Glucose,Whole Blood 208 mg/dL (75-99)
[2020-07-28 22:36] LABS: Glucose,Whole Blood 226 mg/dL (75-99)
[2020-07-28 23:37] LABS: Glucose,Whole Blood 232 mg/dL (75-99)
[2020-07-29 01:13] LABS: Glucose,Whole Blood 229 mg/dL (75-99)
[2020-07-29] MEDS: HYDROmorphone 1 MG/ML 1 ML SYRINGE IVP PRN ×6 (01:41→21:50)
[2020-07-29 02:28] LABS: Glucose,Whole Blood 216 mg/dL (75-99)
[2020-07-29] MEDS: INSULIN REGULAR 100 UNIT in SODIUM CHLORIDE 0.9% 100 ML IV SCH ×2 (02:41→09:34)
[2020-07-29 03:27] LABS: Glucose,Whole Blood 217 mg/dL (75-99)
[2020-07-29 04:08] LABS: Glucose,Whole Blood 210 mg/dL (75-99)
[2020-07-29 04:52] LABS: Anisocytosis Slight; HGB 8.7 gm/dL (13.0-17.5); Hypochromasia Slight; MCH 31.9 pg (25.0-35.0); MCHC 33.3 g/dL (31.0-37.0); MCV 95.8 fL (80.0-100.0); Mean Platelet Volume 7.9; Platelet Count 174 k/uL (150-450); Poikilocytosis Slight; RBC 2.72 m/uL (4.30-5.90); RDW 16.1 % (11.5-15.5)
[2020-07-29 05:26] LABS: Glucose,Whole Blood 188 mg/dL (75-99)
[2020-07-29 05:37] LABS: ABG Base Excess -1.8 mmol/L; ABG HCO3 24 mmol/L (21-25); ABG Oxygen Saturation 98.5 % (94-97); ABG PCO2 42 mmHg (35-45); ABG PH 7.36 (7.35-7.45); ABG PO2 92 mmHg (83-108); ABG TCO2 25 mmol/L (19-24); Allen Test Performed? Yes
[2020-07-29 05:43] LABS: Calcium 7.7 mg/dL (8.4-10.2); Magnesium 1.9 mg/dL (1.6-2.3); Phosphorus 2.8 mg/dL (2.5-4.5); Potassium 3.9 mmol/L (3.5-5.1)
[2020-07-29 05:45] LABS: Band Neutrophils % 4 %; Lymphocytes # (M) 0.34 k/uL (1.0-4.8); Metamyelocytes # (M) 0.17 k/uL (0); Metamyelocytes % 1 %; Monocytes # (M) 1.19 k/uL (0-1.0); Neutrophils % (M) 86 %; Nucleated Red Blood Cells 0 /100 WBC (0-0); Total Cells Counted 200
[2020-07-29 05:46] LABS: Anisocytosis (M) Present; Basophilic Stippling Present; Polychromasia Present; Toxic Granulation Present
[2020-07-29 06:15] LABS: Glucose,Whole Blood 155 mg/dL (75-99)
[2020-07-29 07:11] LABS: Glucose,Whole Blood 166 mg/dL (75-99)
--- NOTE | 2020-07-29 07:47 | P.PN ---
Subjective Progress Note Date: 07/29/20 80-year-old male patient postoperative bypass surgery. Postop day number #6. The patient underwent bypass surgery. The patient remains extubated on 3 L of oxygen by nasal cannula. Chest x-ray shows small right-sided pleural effusion. The patient is awake and alert. The patient is using incentive spirometer. The patient is able to sit up on a chair. He is feeling better on a daily basis. The patient is of coronary artery disease and previous stenting of her back in 2002. Patient has hyperlipidemia and hypothyroidism patient has undergone a partial thyroidectomy he had the patient is an ex-smoker. Mother with COPD with an FEV1 of 56% predicted with some bullous changes. The patient has diabetes mellitus type 2 with a preop hemoglobin A1c of 5.2. The patient is, stage III. The postoperative course was complicated by in acute blood loss anemia which is expected outcome of surgery and the patient also developed atrial fibrillation and other expected outcome of surgery. There was also some limited pneumomediastinum secondary to mediastinal tubes. The patient's currently is in normal sinus rhythm. He is using incentive spirometer.he is pulling approximately 500 on the incentive spirometer. No appreciated bronchospasm wheezing on today's evaluation. Chest x-ray shows small bilateral pleural effusion slightly worse on the right. The patient has no chest tubes at this point in time. He remains nature fibrillation with controlled rate. On 07/25, the patient is being seen in the follow-up. The patient is postop day #1 sought 8 cardiac surger2 following coronary artery bypass surgery. Events occurring yesterday were noted. The patient developed worsening abdominal pain and distention and following that the patient had a CAT scan of the abdomen that showed extensive portal venous air and intraluminal air along with dilated small bowel in the mid abdomen. Bowel gangrene an infarction was suspected. The patient also has a mild to moderate-sized right-sided pleural effusion and small pericardial effusion. The patient was taken to the operating room and the patient underwent a exploratory laparotomy for pneumatosis of the small bowel. The patient underwent small bowel resection. The patient was found to have dilated small bowel. The bowel was ischemic approximately 4 inches from the ileocecal valve. Bowel resection was done and following that the patient was kept intubated on mechanical ventilator and the patient was brought back to the ICU. At this point in time, the patient sedated with propofol and the patient currently intubated on a mechanical ventilator. Orogastric and orotracheal tube was placed. The patient also has a right IJ triple-lumen catheter. Patient is currently on no pressors. She had received some Varun-Synephrine and operating room. The patient is currently on AC and a rate of 14 and TV 600 PEEP 5 and FIO2 50%. Propofol at 10 mc/kg/min and the patient has been on LR at 125cc/hr. The patient is on IV zosyn as a broad- spectrum antibiotic coverage.the blood gases from this morning showed a pH of 7.4 with a pCO2 of 35 and pO2 of 74. Chest x-ray showing a right-sided pleural effusion. ET tube is in a good location. Lactated Ringer is down to 75 mL an hour. Urine output is ordered of 20-30 mL. on 07/26/2020, the patient is postop day #2 from his abdominal surgery and postop day #8 from his cardiac surgery. The patientis was resuscitated and the patient overall received a 3 L bolus yesterday and his net fluid balance is positive for liters over the past 24 hours. Hemoglobin is up to 6.4 and the patient will be receiving a unit of packed RBC. We do not think this is related to bleeding and probably this is dilutional. Meanwhile, the patient is sedated with propofol which is running at 35 mcg/kg per minute. The patient is well rested and comfortable. He is an assist-control mode rate of 14 with a total volume of 600 and FiO2 of 50% with a chief of 5. Chest x-ray shows small bilate ral pleural effusion slightly worse on the right. The blood. Shows pH of 7.37 with a pCO2 of 40 and pO2 of 112 and the necessity ventilator changes were done. Abdominal wound is dry clean and intact. No bowel sounds. Surgical wound site over the chest that is dry clean and intact. NG tube is in place. The patient is receiving TPN for nutritional support. IV fluids in the form of normal saline at the rate of 75 mL an hour. Urine output is in order of 30-40 mL an hour. No other significant issues otherwise. No pressors. A sedation holiday will be given and his underlying mental status will be assessed. Weaning parameters will be also assessed.he is currently off Varun-Synephrine. This was discontinued yesterday. On 07/27/2020, the patient is being seen for a follow-up. He is currently on Precedex which is running at 0.55 g per KG per minute. He is well sedated and he is arousable. He is postop day #3 following his abdominal surgery and postop day #9 following his cardiac surgery. He is still on a mechanical ventilator on assist control mode at the rate of 14 with a tidal volume of 500 and a FiO2 of 40% with a PEEP of 5. Chest x-ray showing cardiomegaly. ET tube is in a good location. ET tube is in place. The patient has small bilateral pleural effusions slightly worse on the right. No other acute abnormalities noted. Blood gases from today shows a pH of 7.35 with a pCO2 of 42 and pO2 of 92 on the above-mentioned vent setting. The patient received 2 units of packed RBC yesterday and hemoglobin today is up to 6.9. White blood count is down to 15.3 and the patient is afebrile. The patient is on no pressors for now. He was taken Varun-Synephrine which is currently off. The abdominal wound is dry clean and intact. The surgical wound over the sternum is dry clean and intact. He has a triple lumen catheter in his right IJ. He is on IV Zosyn and he is adequately recovered for now. Dilaudid for pain control. Fluid balance over the past 24 hours is positive for 4.6 L. He is taking TPN which is running at 60 and mother number and a normal saline is currently running at 20 mL an hour. on 07/28/2020, the patient remains intubated on a mechanical ventilator. He is postop day #10 from his cardiac surgery and postoperative day number 4 post abdominal Surgery . This morning, the patient is sedated with Precedex which is running at 0.4 mcg/kg per minute. The patient is arousable. He is following some simple commands. We're the process of weaning the sedation further. His atrial fibrillation is under good control. He is on amiodarone drip maintenance at 0.5 mg per minute. He is hemodynamically stable on no pressors. He remains on a mechanical ventilator. Ventilator setting includes a rate of 14 with a tidal volume of 500 and FiO2 of 40% with a PEEP of 5. Blood gases from today showed a pH of 7.35 with a pCO2 of 43 and pO2 of 93. Chest x-ray shows small bilateral pleural effusions and atelectatic changes in the lung bases. The orotracheal tube is in a good location. The patient is producing adequate amount of urine output. The patient received a unit of packed RBC yesterday and hemoglobin is up to 8.4. The patient is in a 0 fluid balance over the past 24 hours. His white cell count is at 18.And his hemoglobin is at 8.4. His renal function is stable with a creatinine of 2.08. On examination, a has still hy poactive bowel sounds. Surgical wound site is dry clean and intact over the anterior abdominal wall and the sternum. NG tube is in place. Output is minimal at this point in time. He remains on IV Zosyn as an empiric antibiotic coverage. He has not received anticoagulation. He has not receiving enteral feeding and the patient is receiving TPN for nutritional support. 07/29/2020 the patient is postop day #11 from his cardiac surgery and postoperative #5 from his abdominal surgery. He is on Precedex running at 0.2 g per KG per hour. He is arousable. He is following commands. He is on mechanical ventilator. On today's evaluation is a tidal volume of 500 and FiO2 of 40% and a PEEP of 5 and the rate of 14. His blood gas showed a pH of 7.36 with a pCO2 of 43 and pO2 of 92. Chest x-ray showed adequate expansion of both lungs and A. fib is in a good location. He has small bilateral pleural effusions and atelectatic changes in lung bases which is an expected finding.. He also has a small pericardial effusion. He underwent a repeat CAT scan of the abdomen yesterday and it indicated possibility of an underlying ileus. Nevertheless, on examination, he has no abdominal distention. Abdominal surgical wound site is dry clean and intact. He remains on TPN for nutritional support. He remains on IV Zosyn. He is afebrile. The white cell count today is at 17 with a hemoglobin of 8.7. His renal function continues to improve. Creatinine is down to 1.7 with a mean of 64. The sodium level is at 129. His net fluid balance -8 17 mL. Otherwise, is producing adequate amount of urine output. NG tube is in place. Output from the NG is 150 over the past 24 hours. He is still in atrial fibrillation. He remains on amiodarone drip at 0.5 mg per minute. Cardiac rhythm. He is on no pressors for now. At this point is breathing trial yesterday. He did become tachypneic and had a very high minute ventilation. Based on that, the trial was aborted specially the patient was feeling also uncomfortable and he was more short of breath. Objective - Vital Signs Vital signs: Vital Signs Temp 98.2 F 07/29/20 04:00 Pulse 93 07/29/20 07:00 Resp 26 H 07/29/20 07:00 BP 138/80 07/28/20 21:00 Pulse Ox 98 07/29/20 07:00 Intake & Output 07/28/20 07/29/20 07/29/20 18:59 06:59 18:59 Intake Total 2686.720 1877.724 134.621 Output Total 3265 2080 105 Balance -578.280 -202.276 29.621 Weight 109.4 kg 108 kg Intake: IV 1243 1406 119 Fat Emulsion 20% 250 ml 21 252 21 In Empty Bag 1 bag @ 21 mls/hr IV [id number]@1600 [facility] Rx#:[id number] Mvi, Adult No.4 with Vit 300 K 10 ml Trace (Conc-1Ml/ Dose) 1 ml Sodium Chloride 2.5MEQ/ml Vial 15 meq Calcium Gluconate 1 gm Sodium Phosphate 15 mmol In Amino Acid 5%- D15w 1,000 ml @ 60 mls/hr IV .BY DURATION [facility] Rx#: [id number] Mvi, Adult No.4 with Vit 450 840 75 K 10 ml Trace (Conc-1Ml/ Dose) 1 ml Sodium Chloride 2.5MEQ/ml Vial 30 meq Calcium Gluconate 1 gm Potassium Chloride 10 meq In Amino Acid 5%- D15w 1,000 ml @ 75 mls/hr IV .BY DURATION [facility] Rx#: [id number] Piperacillin-Tazobactam 3 200 100 .375 gm In Sodium Chloride 0.9% 100 ml @ 25 mls/hr IVPB Q8HR [facility] Rx# :[id number] Sodium Chloride 0.9% 1, 200 160 20 000 ml @ 20 mls/hr IV . Q24H [facility] Rx#:[id number] pressure bag 72 54 3 Intake, IV Titration 243.720 471.724 15.621 Amount Amiodarone 300 mg In 250 Dextrose 5% in Water 250 ml @ 0.5 MG/MIN 25 mls/hr IV .Q10H [facility] Rx#: [id number] Dexmedetomidine/0.9% NaCl 63.722 (Pmx) 400 mcg In Empty Bag 1 bag @ Titrate IV . Q0M [facility] Rx#:[id number] Heparin Sod,Pork in 0.45% 67.993 NaCl 25,000 unit In 0.45 % NaCl 1 250ml.bag @ 9.14 UNITS/KG/HR 9.999 mls/hr IV .Q24H [facility] Rx#: [id number] Insulin Regular 100 unit 104.998 153.731 15.621 In Sodium Chloride 0.9% 100 ml @ Per Protocol IV .Q0M [facility] Rx#:[id number] Mvi, Adult No.4 with Vit 75 K 10 ml Trace (Conc-1Ml/ Dose) 1 ml Sodium Chloride 2.5MEQ/ml Vial 15 meq Calcium Gluconate 1 gm Sodium Phosphate 15 mmol In Amino Acid 5%- D15w 1,000 ml @ 60 mls/hr IV .BY DURATION [facility] Rx#: [id number] Oral 1200 Output: Gastric Drainage 725 Urine 2540 2080 105 Other: Voiding Method Indwelling Catheter Indwelling Catheter ABP, PAP, CO, CI - Last Documented Arterial Blood Pressure 153/67 Pulmonary Artery Pressure 33/14 Cardiac Output 6.7 Cardiac Index 3.1 - Exam Gen. appearance the patient is intubated, comfortable mechanical ventilator. Orogastric and orotracheal place.the patient is arousable. He is sedated. He i s easily arousable off sedation. Head exam was generally normal. There was no scleral icterus or corneal arcus. Mucous membranes were moist. Neck was supple and without jugular venous distension, thyromegaly, or carotid bruits. Carotids were easily palpable bilaterally. There was no adenopathy. the patient has orogastric tube and orotracheal tube and the patient has a right IJ triple-lumen catheter Lungs sounds are diminished in the right lung base. Breath sounds are otherwise within normal limits. Sternum stable clean and intact. Cardiac exam revealed the PMI to be normally situated and sized. The rhythm was regular and no extrasystoles were noted during several minutes of auscultation. The first and second heart sounds were normal and physiologic splitting of the second heart sound was noted. There were no murmurs, rubs, clicks, or gallops. Abdomen is distended. Bowel sounds are hypoactive and nearly absent. Surgical wound site is dry. Overall. No direct tenderness. No rebound tenderness. No guarding. hypoactive bowel sounds. Surgical wound site over the anterior abdominal wall is dry clean and intact. Examination of the extremities revealed easily palpable radial, femoral and pedal pulses. There was no cyanosis, clubbing or edema. Examination of the skin revealed no evidence of significant rashes, suspicious appearing nevi or other concerning lesions. Neurologically, the patient is arousable on minimal amount of sedation.he is following commands and the patient does not have any focal neurological deficit. Cranial nerves are essentially intact. - Labs CBC & Chem 7: 07/29/20 04:05 07/29/20 04:05 Labs: Abnormal Lab Results - Last 24 Hours (Table) 07/28/20 07/28/20 07/28/20 Range/Units 08:04 09:04 10:31 WBC (3.8-10.6) k/uL RBC (4.30-5.90) m/uL Hgb (13.0-17.5) gm/dL Hct (39.0-53.0) % RDW (11.5-15.5) % Neutrophils # (Manual) (1.3-7.7) k/uL Lymphocytes # (Manual) (1.0-4.8) k/uL Monocytes # (Manual) (0-1.0) k/uL Metamyelocytes # (Man) (0) k/uL APTT (22.0-30.0) sec ABG Total CO2 (19-24) mmol/L ABG O2 Saturation (94-97) % Sodium (137-145) mmol/L BUN (9-20) mg/dL Creatinine (0.66-1.25) mg/dL Glucose (74-99) mg/dL POC Glucose (mg/dL) 128 H 136 H 145 H (75-99) mg/dL Calcium (8.4-10.2) mg/dL 07/28/20 07/28/20 07/28/20 Range/Units 11:09 12:14 13:05 WBC (3.8-10.6) k/uL RBC (4.30-5.90) m/uL Hgb (13.0-17.5) gm/dL Hct (39.0-53.0) % RDW (11.5-15.5) % Neutrophils # (Manual) (1.3-7.7) k/uL Lymphocytes # (Manual) (1.0-4.8) k/uL Monocytes # (Manual) (0-1.0) k/uL Metamyelocytes # (Man) (0) k/uL APTT (22.0-30.0) sec ABG Total CO2 (19-24) mmol/L ABG O2 Saturation (94-97) % Sodium (137-145) mmol/L BUN (9-20) mg/dL Creatinine (0.66-1.25) mg/dL Glucose (74-99) mg/dL POC Glucose (mg/dL) 152 H 143 H 158 H (75-99) mg/dL Calcium (8.4-10.2) mg/dL 07/28/20 07/28/20 07/28/20 Range/Units 14:00 15:02 16:11 WBC (3.8-10.6) k/uL RBC (4.30-5.90) m/uL Hgb (13.0-17.5) gm/dL Hct (39.0-53.0) % RDW (11.5-15.5) % Neutrophils # (Manual) (1.3-7.7) k/uL Lymphocytes # (Manual) (1.0-4.8) k/uL Monocytes # (Manual) (0-1.0) k/uL Metamyelocytes # (Man) (0) k/uL APTT (22.0-30.0) sec ABG Total CO2 (19-24) mmol/L ABG O2 Saturation (94-97) % Sodium (137-145) mmol/L BUN (9-20) mg/dL Creatinine (0.66-1.25) mg/dL Glucose (74-99) mg/dL POC Glucose (mg/dL) 203 H 154 H 143 H (75-99) mg/dL Calcium (8.4-10.2) mg/dL 12/11/20 12/11/20 12/11/20 Range/Units 17:19 18:11 19:04 WBC (3.8-10.6) k/uL RBC (4.30-5.90) m/uL Hgb (13.0-17.5) gm/dL Hct (39.0-53.0) % RDW (11.5-15.5) % Neutrophils # (Manual) (1.3-7.7) k/uL Lymphocytes # (Manual) (1.0-4.8) k/uL Monocytes # (Manual) (0-1.0) k/uL Metamyelocytes # (Man) (0) k/uL APTT (22.0-30.0) sec ABG Total CO2 (19-24) mmol/L ABG O2 Saturation (94-97) % Sodium (137-145) mmol/L BUN (9-20) mg/dL Creatinine (0.66-1.25) mg/dL Glucose (74-99) mg/dL POC Glucose (mg/dL) 124 H 143 H 149 H (75-99) mg/dL Calcium (8.4-10.2) mg/dL 07/28/20 07/28/20 07/28/20 Range/Units 19:12 21:03 22:35 WBC (3.8-10.6) k/uL RBC (4.30-5.90) m/uL Hgb (13.0-17.5) gm/dL Hct (39.0-53.0) % RDW (11.5-15.5) % Neutrophils # (Manual) (1.3-7.7) k/uL Lymphocytes # (Manual) (1.0-4.8) k/uL Monocytes # (Manual) (0-1.0) k/uL Metamyelocytes # (Man) (0) k/uL APTT 32.7 H (22.0-30.0) sec ABG Total CO2 (19-24) mmol/L ABG O2 Saturation (94-97) % Sodium (137-145) mmol/L BUN (9-20) mg/dL Creatinine (0.66-1.25) mg/dL Glucose (74-99) mg/dL POC Glucose (mg/dL) 208 H 226 H (75-99) mg/dL Calcium (8.4-10.2) mg/dL 07/28/20 07/29/20 07/29/20 Range/Units 23:36 01:10 01:12 WBC (3.8-10.6) k/uL RBC (4.30-5.90) m/uL Hgb (13.0-17.5) gm/dL Hct (39.0-53.0) % RDW (11.5-15.5) % Neutrophils # (Manual) (1.3-7.7) k/uL Lymphocytes # (Manual) (1.0-4.8) k/uL Monocytes # (Manual) (0-1.0) k/uL Metamyelocytes # (Man) (0) k/uL APTT 127.2 H* (22.0-30.0) sec ABG Total CO2 (19-24) mmol/L ABG O2 Saturation (94-97) % Sodium (137-145) mmol/L BUN (9-20) mg/dL Creatinine (0.66-1.25) mg/dL Glucose (74-99) mg/dL POC Glucose (mg/dL) 232 H 229 H (75-99) mg/dL Calcium (8.4-10.2) mg/dL 07/29/20 07/29/20 07/29/20 Range/Units 02:26 03:25 04:05 WBC (3.8-10.6) k/uL RBC (4.30-5.90) m/uL Hgb (13.0-17.5) gm/dL Hct (39.0-53.0) % RDW (11.5-15.5) % Neutrophils # (Manual) (1.3-7.7) k/uL Lymphocytes # (Manual) (1.0-4.8) k/uL Monocytes # (Manual) (0-1.0) k/uL Metamyelocytes # (Man) (0) k/uL APTT (22.0-30.0) sec ABG Total CO2 (19-24) mmol/L ABG O2 Saturation (94-97) % Sodium 129 L (137-145) mmol/L BUN 64 H (9-20) mg/dL Creatinine 1.72 H (0.66-1.25) mg/dL Glucose 184 H (74-99) mg/dL POC Glucose (mg/dL) 216 H 217 H (75-99) mg/dL Calcium 7.7 L (8.4-10.2) mg/dL 07/29/20 07/29/20 07/29/20 Range/Units 04:05 04:05 04:08 WBC 17.0 H (3.8-10.6) k/uL RBC 2.72 L (4.30-5.90) m/uL Hgb 8.7 L (13.0-17.5) gm/dL Hct 26.0 L (39.0-53.0) % RDW 16.1 H (11.5-15.5) % Neutrophils # (Manual) 15.30 H (1.3-7.7) k/uL Lymphocytes # (Manual) 0.34 L (1.0-4.8) k/uL Monocytes # (Manual) 1.19 H (0-1.0) k/uL Metamyelocytes # (Man) 0.17 H (0) k/uL APTT (22.0-30.0) sec ABG Total CO2 25 H (19-24) mmol/L ABG O2 Saturation 98.5 H (94-97) % Sodium (137-145) mmol/L BUN (9-20) mg/dL Creatinine (0.66-1.25) mg/dL Glucose (74-99) mg/dL POC Glucose (mg/dL) 210 H (75-99) mg/dL Calcium (8.4-10.2) mg/dL 07/29/20 07/29/20 07/29/20 Range/Units 05:12 06:13 07:10 WBC (3.8-10.6) k/uL RBC (4.30-5.90) m/uL Hgb (13.0-17.5) gm/dL Hct (39.0-53.0) % RDW (11.5-15.5) % Neutrophils # (Manual) (1.3-7.7) k/uL Lymphocytes # (Manual) (1.0-4.8) k/uL Monocytes # (Manual) (0-1.0) k/uL Metamyelocytes # (Man) (0) k/uL APTT (22.0-30.0) sec ABG Total CO2 (19-24) mmol/L ABG O2 Saturation (94-97) % Sodium (137-145) mmol/L BUN (9-20) mg/dL Creatinine (0.66-1.25) mg/dL Glucose (74-99) mg/dL POC Glucose (mg/dL) 188 H 155 H 166 H (75-99) mg/dL Calcium (8.4-10.2) mg/dL Microbiology - Last 24 Hours (Table) 07/27/20 11:50 Nasal Screen MRSA/MSSA - Final Nasal Swab Assessment and Plan Plan: 1 Symptomatic coronary artery disease, status post two-vessel coronary artery bypass grafting with PABLO to the LAD, SVG to the PDA, postoperative day #11 2 Postoperative atrial fibrillation with rapid ventricular response requiring amiodarone and Metoprolol and he is currently off anticagulation due to the surgical intervention as mentioned above, and the patient continues to be in atrial fibrillation, the patient is currently on amiodarone 0.5 mg per minute continuous infusion. not clear for anticoagulation from the surgical standpoint 3 acute ischemic small bowel, pneumatosis the patient is post exp Laparotomy and small bowel resection. The patient is postop day #5, the patient is receiving TPN for nutritional support. the patient remains nothing by mouth for now. The bowel sounds are hypoactive. The patient remains nothing by mouth. The patient remains on IV Zosyn. He does have some postoperative changes on his CAT scan of the abdomen. May be some underlying ileus. 4 acute hypoxic respiratory failure following bowel surgery. The patient was kept on mechanical ventilator since yesterday. Chest x-ray was noted and the patient is a small to moderate-sized right-sided pleural effusion. Blood gases was noted. the patient has pseudomonas in his lungs and his sputum culture. This is likely a colonizer. A superimposed pneumonia is felt to be less likely. The chest x-ray findings are stable. On the CAT scan of the abdomen, the lung bases showed small bilateral pleural effusions and small atelectatic changes. 5 small atelectatic/pleural effusion involving the lung bases in addition to a small bilateral pleural effusion. 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 9 Acute on chronic kidney disease stage III at baseline, creatinine is up to 2.02 10 Diabetes mellitus type 2 11 Postoperative acute blood loss anemia, expected outcome of open heart surgery hemoglobin is update point as the patient received packed RBC transfu james yesterday 12 History of hypertension 13 History of hyperlipidemia 14 leukocytosis which is expected reactive leukocytosis, white cell count is at increased, yet stable at 18.0 Plan: Continue NSS at the rate of 20 mL an hour TPN for nutritional support, currently at 75 mL an hour Chest x-ray and labs reviewed Continue vent support and stop the sedation and gradually check weaning nicole eters and assess the patient's candidacy for further weaning. This is a daily thing. The weaning trial that was done yesterday was aborted as the patient had a high minute ventilation Continue IV Zosyn Continue bronchodilators The patient was restarted on IV heparin yesterday. This was cleared by the surgeon. No feedings yet. We will continue to follow and make further recommendations based on his clinical condition CC evaluation more than 30 min
[2020-07-29] MEDS: IPRATROPIUM-ALBUTEROL 3 ML NEB INHALATION SCH ×4 (07:52→20:07)
[2020-07-29] MEDS: BUDESONIDE 1 MG/2 ML NEBU INHALATION SCH ×2 (07:52→20:07)
[2020-07-29] MEDS: FORMOTEROL FUMARATE 20 MCG/2 ML NEBU INHALATION SCH ×2 (07:52→20:06)
--- NOTE | 2020-07-29 08:26 | P.PN ---
Subjective Progress Note Date: 07/29/20 Principal diagnosis: Symptomatic triple-vessel coronary artery disease, mild left ventricular dysfunction. Previuos medical history of stenting to his right coronary artery in 2002, hypertension, hyperlipidemia, hypothyroid status post partial thyroidectomy, previous tobacco dependence quit smoking 20 years ago, moderate chronic obstructive pulmonary disease with preoperative FEV1 of 56% of predicted value, bullous emphysema, remote history of pneumonia, type 2 diabetes mellitus with a preoperative hemoglobin A1c of 5.2%, chronic kidney disease stage III with a baseline creatinine of 1.4-1.5, family history of premature coronary artery disease with brother having had CABG at less than 50 years old. POD #11 double coronary artery bypass grafting using the left internal mammary artery to left anterior descending coronary artery, reverse greater saphenous vein graft from the aorta to the posterior descending coronary artery. Exclusion of the left atrial appendage using a 35 mm Atriclip, endoscopic harvesting of the right greater saphenous vein from the groin to above the ankle level, graft flow measurement using the quietrevolution system, intraoperative transesophageal echocardiogram and epi-aortic scanning. Postoperative acute blood loss anemia, expected outcome from hemodilution and cardiopulmonary bypass. Postoperative paroxysmal atrial fibrillation, unexpected but common outcome after open heart surgery. Pneumoperitoneum, unexpected Acute on chronic kidney disease secondary to ATN Pneumatosis of the small bowel POD #5 small bowel resection Prolonged mechanical ventilation, unexpected Patient's currently laying in the intensive care unit sedated on mechanical ventilation. Remains in controlled afib, hemodynamically stable on no pressors, was initiated on IV heparin. Sedated with minimal precedex, alert and following commands. NG tube in place to low intermittent suction with minimal green fluid, hypoactive bowel sounds x 4 quadrants. Abdomen is soft. Remains on IV amio, zosyn. He did have weaning trial yesterday, however he became to And tachycardic and was placed back on assist control ventilation. Repeat CT of the chest abdomen and pelvis was completed yesterday per Dr. Dempsey, continue to hold any tube feedings. Daughter updated last night via telephone. Objective - Vital Signs Vital signs: Vital Signs Temp 98.2 F 07/29/20 04:00 Pulse 105 H 07/29/20 08:12 Resp 26 H 07/29/20 07:00 BP 138/80 07/28/20 21:00 Pulse Ox 98 12/12/20 07:00 Intake & Output 07/28/20 07/29/20 07/29/20 18:59 06:59 18:59 Intake Total 2686.720 1877.724 134.621 Output Total 3265 2080 105 Balance -578.280 -202.276 29.621 Weight 109.4 kg 108 kg Intake: IV 1243 1406 119 Fat Emulsion 20% 250 ml 21 252 21 In Empty Bag 1 bag @ 21 mls/hr IV MoWeFr@1600 [facility] Rx#:[id number] Mvi, Adult No.4 with Vit 300 K 10 ml Trace (Conc-1Ml/ Dose) 1 ml Sodium Chloride 2.5MEQ/ml Vial 15 meq Calcium Gluconate 1 gm Sodium Phosphate 15 mmol In Amino Acid 5%- D15w 1,000 ml @ 60 mls/hr IV .BY DURATION [facility] Rx#: [id number] Mvi, Adult No.4 with Vit 450 840 75 K 10 ml Trace (Conc-1Ml/ Dose) 1 ml Sodium Chloride 2.5MEQ/ml Vial 30 meq Calcium Gluconate 1 gm Potassium Chloride 10 meq In Amino Acid 5%- D15w 1,000 ml @ 75 mls/hr IV .BY DURATION [facility] Rx#: [id number] Piperacillin-Tazobactam 3 200 100 .375 gm In Sodium Chloride 0.9% 100 ml @ 25 mls/hr IVPB Q8HR [facility] Rx# :[id number] Sodium Chloride 0.9% 1, 200 160 20 000 ml @ 20 mls/hr IV . Q24H [facility] Rx#:[id number] pressure bag 72 54 3 Intake, IV Titration 243.720 471.724 15.621 Amount Amiodarone 300 mg In 250 Dextrose 5% in Water 250 ml @ 0.5 MG/MIN 25 mls/hr IV .Q10H [facility] Rx#: [id number] Dexmedetomidine/0.9% NaCl 63.722 (Pmx) 400 mcg In Empty Bag 1 bag @ Titrate IV . Q0M [facility] Rx#:[id number] Heparin Sod,Pork in 0.45% 67.993 NaCl 25,000 unit In 0.45 % NaCl 1 250ml.bag @ 9.14 UNITS/KG/HR 9.999 mls/hr IV .Q24H [facility] Rx#: [id number] Insulin Regular 100 unit 104.998 153.731 15.621 In Sodium Chloride 0.9% 100 ml @ Per Protocol IV .Q0M [facility] Rx#:[id number] Mvi, Adult No.4 with Vit 75 K 10 ml Trace (Conc-1Ml/ Dose) 1 ml Sodium Chloride 2.5MEQ/ml Vial 15 meq Calcium Gluconate 1 gm Sodium Phosphate 15 mmol In Amino Acid 5%- D15w 1,000 ml @ 60 mls/hr IV .BY DURATION [facility] Rx#: [id number] Oral 1200 Output: Gastric Drainage 725 Urine 2540 2080 105 Other: Voiding Method Indwelling Catheter Indwelling Catheter ABP, PAP, CO, CI - Last Documented Arterial Blood Pressure 153/67 Pulmonary Artery Pressure 33/14 Cardiac Output 6.7 Cardiac Index 3.1 - Constitutional General appearance: Present: cooperative, no acute distress, obese - Respiratory Details: Lungs sounds diminished bilaterally with coarse breath sounds in the bases. Respirations even, non-labored on mechanical ventilation. Currently current settings FiO2 40%, tidal volume 500, respiratory rate 14, PEEP 5. ABGs this morning on those settings 7.36/42/92/24/98%/-1.8 on those settings. 7.5 ET tube present, 23 at the lip - Cardiovascular Details: S1, S2 present. Irregular rate and rhythm, controlled atrial fibrillation on telemetry with rate in the 80s. Sternum stable. Palpable peripheral pulses bilaterally. Generalized edema present. Heart hugger, antiembolism stockings, SCDs present. Right internal jugular triple-lumen central line, right femoral arterial line present. - Gastrointestinal Gastrointestinal Comment(s): Abdomen soft, nontender, nondistended. Hypoactive bowel sounds x 4 quadrants. NG tube present to low intermittent suction with 150 mL green drainage in 24 hours - Genitourinary Genitourinary Comment(s): Villafana catheter present draining clear, yellow urine. Output 120-200 mL/h overnight, 4520 mL in the last 24 hours - Integumentary Integumentary Comment(s): Skin is warm and dry with evidence of good perfusion. Anterior chest incision well approximated and covered with dry intact dressing. Right lower extremity EVH site well approximated. Mid abdominal incision well approximated with eliecer and covered with dry intact dressing - Neurologic Neurologic Comment(s): Opens eyes and follows commands - Musculoskeletal Musculoskeletal: Present: generalized weakness, strength equal bilaterally - Allied health notes Allied health notes reviewed: nursing - Labs CBC & Chem 7: 07/29/20 04:05 07/29/20 04:05 Labs: Abnormal Lab Results - Last 24 Hours (Table) 07/28/20 07/28/20 07/28/20 Range/Units 09:04 10:31 11:09 WBC (3.8-10.6) k/uL RBC (4.30-5.90) m/uL Hgb (13.0-17.5) gm/dL Hct (39.0-53.0) % RDW (11.5-15.5) % Neutrophils # (Manual) (1.3-7.7) k/uL Lymphocytes # (Manual) (1.0-4.8) k/uL Monocytes # (Manual) (0-1.0) k/uL Metamyelocytes # (Man) (0) k/uL APTT (22.0-30.0) sec ABG Total CO2 (19-24) mmol/L ABG O2 Saturation (94-97) % Sodium (137-145) mmol/L BUN (9-20) mg/dL Creatinine (0.66-1.25) mg/dL Glucose (74-99) mg/dL POC Glucose (mg/dL) 136 H 145 H 152 H (75-99) mg/dL Calcium (8.4-10.2) mg/dL 07/28/20 07/28/20 07/28/20 Range/Units 12:14 13:05 14:00 WBC (3.8-10.6) k/uL RBC (4.30-5.90) m/uL Hgb (13.0-17.5) gm/dL Hct (39.0-53.0) % RDW (11.5-15.5) % Neutrophils # (Manual) (1.3-7.7) k/uL Lymphocytes # (Manual) (1.0-4.8) k/uL Monocytes # (Manual) (0-1.0) k/uL Metamyelocytes # (Man) (0) k/uL APTT (22.0-30.0) sec ABG Total CO2 (19-24) mmol/L ABG O2 Saturation (94-97) % Sodium (137-145) mmol/L BUN (9-20) mg/dL Creatinine (0.66-1.25) mg/dL Glucose (74-99) mg/dL POC Glucose (mg/dL) 143 H 158 H 203 H (75-99) mg/dL Calcium (8.4-10.2) mg/dL 07/28/20 07/28/20 07/28/20 Range/Units 15:02 16:11 17:19 WBC (3.8-10.6) k/uL RBC (4.30-5.90) m/uL Hgb (13.0-17.5) gm/dL Hct (39.0-53.0) % RDW (11.5-15.5) % Neutrophils # (Manual) (1.3-7.7) k/uL Lymphocytes # (Manual) (1.0-4.8) k/uL Monocytes # (Manual) (0-1.0) k/uL Metamyelocytes # (Man) (0) k/uL APTT (22.0-30.0) sec ABG Total CO2 (19-24) mmol/L ABG O2 Saturation (94-97) % Sodium (137-145) mmol/L BUN (9-20) mg/dL Creatinine (0.66-1.25) mg/dL Glucose (74-99) mg/dL POC Glucose (mg/dL) 154 H 143 H 124 H (75-99) mg/dL Calcium (8.4-10.2) mg/dL 07/28/20 07/28/20 07/28/20 Range/Units 18:11 19:04 19:12 WBC (3.8-10.6) k/uL RBC (4.30-5.90) m/uL Hgb (13.0-17.5) gm/dL Hct (39.0-53.0) % RDW (11.5-15.5) % Neutrophils # (Manual) (1.3-7.7) k/uL Lymphocytes # (Manual) (1.0-4.8) k/uL Monocytes # (Manual) (0-1.0) k/uL Metamyelocytes # (Man) (0) k/uL APTT 32.7 H (22.0-30.0) sec ABG Total CO2 (19-24) mmol/L ABG O2 Saturation (94-97) % Sodium (137-145) mmol/L BUN (9-20) mg/dL Creatinine (0.66-1.25) mg/dL Glucose (74-99) mg/dL POC Glucose (mg/dL) 143 H 149 H (75-99) mg/dL Calcium (8.4-10.2) mg/dL 07/28/20 07/28/20 07/28/20 Range/Units 21:03 22:35 23:36 WBC (3.8-10.6) k/uL RBC (4.30-5.90) m/uL Hgb (13.0-17.5) gm/dL Hct (39.0-53.0) % RDW (11.5-15.5) % Neutrophils # (Manual) (1.3-7.7) k/uL Lymphocytes # (Manual) (1.0-4.8) k/uL Monocytes # (Manual) (0-1.0) k/uL Metamyelocytes # (Man) (0) k/uL APTT (22.0-30.0) sec ABG Total CO2 (19-24) mmol/L ABG O2 Saturation (94-97) % Sodium (137-145) mmol/L BUN (9-20) mg/dL Creatinine (0.66-1.25) mg/dL Glucose (74-99) mg/dL POC Glucose (mg/dL) 208 H 226 H 232 H (75-99) mg/dL Calcium (8.4-10.2) mg/dL 07/29/20 07/29/20 07/29/20 Range/Units 01:10 01:12 02:26 WBC (3.8-10.6) k/uL RBC (4.30-5.90) m/uL Hgb (13.0-17.5) gm/dL Hct (39.0-53.0) % RDW (11.5-15.5) % Neutrophils # (Manual) (1.3-7.7) k/uL Lymphocytes # (Manual) (1.0-4.8) k/uL Monocytes # (Manual) (0-1.0) k/uL Metamyelocytes # (Man) (0) k/uL APTT 127.2 H* (22.0-30.0) sec ABG Total CO2 (19-24) mmol/L ABG O2 Saturation (94-97) % Sodium (137-145) mmol/L BUN (9-20) mg/dL Creatinine (0.66-1.25) mg/dL Glucose (74-99) mg/dL POC Glucose (mg/dL) 229 H 216 H (75-99) mg/dL Calcium (8.4-10.2) mg/dL 07/29/20 07/29/20 07/29/20 Range/Units 03:25 04:05 04:05 WBC 17.0 H (3.8-10.6) k/uL RBC 2.72 L (4.30-5.90) m/uL Hgb 8.7 L (13.0-17.5) gm/dL Hct 26.0 L (39.0-53.0) % RDW 16.1 H (11.5-15.5) % Neutrophils # (Manual) 15.30 H (1.3-7.7) k/uL Lymphocytes # (Manual) 0.34 L (1.0-4.8) k/uL Monocytes # (Manual) 1.19 H (0-1.0) k/uL Metamyelocytes # (Man) 0.17 H (0) k/uL APTT (22.0-30.0) sec ABG Total CO2 (19-24) mmol/L ABG O2 Saturation (94-97) % Sodium 129 L (137-145) mmol/L BUN 64 H (9-20) mg/dL Creatinine 1.72 H (0.66-1.25) mg/dL Glucose 184 H (74-99) mg/dL POC Glucose (mg/dL) 217 H (75-99) mg/dL Calcium 7.7 L (8.4-10.2) mg/dL 07/29/20 07/29/20 07/29/20 Range/Units 04:05 04:08 05:12 WBC (3.8-10.6) k/uL RBC (4.30-5.90) m/uL Hgb (13.0-17.5) gm/dL Hct (39.0-53.0) % RDW (11.5-15.5) % Neutrophils # (Manual) (1.3-7.7) k/uL Lymphocytes # (Manual) (1.0-4.8) k/uL Monocytes # (Manual) (0-1.0) k/uL Metamyelocytes # (Man) (0) k/uL APTT (22.0-30.0) sec ABG Total CO2 25 H (19-24) mmol/L ABG O2 Saturation 98.5 H (94-97) % Sodium (137-145) mmol/L BUN (9-20) mg/dL Creatinine (0.66-1.25) mg/dL Glucose (74-99) mg/dL POC Glucose (mg/dL) 210 H 188 H (75-99) mg/dL Calcium (8.4-10.2) mg/dL 07/29/20 07/29/20 Range/Units 06:13 07:10 WBC (3.8-10.6) k/uL RBC (4.30-5.90) m/uL Hgb (13.0-17.5) gm/dL Hct (39.0-53.0) % RDW (11.5-15.5) % Neutrophils # (Manual) (1.3-7.7) k/uL Lymphocytes # (Manual) (1.0-4.8) k/uL Monocytes # (Manual) (0-1.0) k/uL Metamyelocytes # (Man) (0) k/uL APTT (22.0-30.0) sec ABG Total CO2 (19-24) mmol/L ABG O2 Saturation (94-97) % Sodium (137-145) mmol/L BUN (9-20) mg/dL Creatinine (0.66-1.25) mg/dL Glucose (74-99) mg/dL POC Glucose (mg/dL) 155 H 166 H (75-99) mg/dL Calcium (8.4-10.2) mg/dL Microbiology - Last 24 Hours (Table) 07/27/20 11:50 Nasal Screen MRSA/MSSA - Final Nasal Swab - Imaging and Cardiology Chest x-ray: image reviewed Assessment and Plan Assessment: 1. Symptomatic triple-vessel coronary artery disease, status post 2 vessel CABG 2. Mild left ventricular dysfunction 3. Previuos history of stenting to his right coronary artery in 2002 4. Hypertension 5. Hyperlipidemia 6. Hypothyroid status post partial thyroidectomy 7. Previous tobacco dependence with bullous emphysema 8. Moderate chronic obstructive pulmonary disease with preoperative FEV1 of 56% of predicted value 9. Remote history of pneumonia 10. Type 2 diabetes mellitus with a preoperative hemoglobin A1c of 5.2% 11. Chronic kidney disease stage III with a baseline creatinine of 1.4-1.5 12. Family history of premature coronary artery disease with brother having had CABG at less than 50 years old 13. Postoperative acute blood loss anemia, expected outcome 14. Postoperative paroxysmal atrial fibrillation, unexpected, status post exclusion of the left atrial appendage 15. Pneumoperitoneum, unexpected 16. Acute on chronic kidney disease with hyponatremia, hyperkalemia 17. Pneumatosis of the small bowel, status post small bowel resection 18. Sputum culture positive for pseudomonas fluorescens 19. Prolonged mechanical ventilation Plan: 1. Continue low dose aspirin, low-dose beta apolinar 2. Continue IV amiodarone for afib. Continue IV heparin for anticoagulation 3. Ventilator management per mid level net developer. Bronchodilators per pulmonology management. Continue IV Zosyn. Will trial off sedation, SBT daily 4. Will monitor daily labs and chest x-rays. No transfusion 5. GI/DVT prophylaxis. 6. Pain control with current medication regimen. 7. Insulin management per Dr. Polk 8. Continue TPN per RD. No tube feedings per Dr. Dempsey 9. Nephrology following. Avoid nephrotoxic agents 10. Strict accurate intake and output, daily weight 11. Continue IV Zosyn. No need for any other antibiotics at this time, ps eudomonas covered with IV Zosyn 12. More recommendations to follow based on patient's clinical course. Time with Patient: Greater than 30
[2020-07-29] MEDS: PIPERACILLIN-TAZOBACTAM 3.375 GM in SODIUM CHLORIDE 0.9% 100 ML IVPB SCH ×2 (09:19→18:15)
[2020-07-29] MEDS: AMIODARONE 300 MG in DEXTROSE 5% IN WATER 250 ML IV SCH ×4 (09:27→21:10)
[2020-07-29 09:35] LABS: Glucose,Whole Blood 71 mg/dL (75-99)
[2020-07-29] MEDS: CHLORHEXIDINE GLUCONATE 15 ML CUP MUCOUS MEM SCH ×2 (09:43→21:24)
[2020-07-29] MEDS: ASPIRIN 81 MG PO SCH (09:43)
[2020-07-29] MEDS: METOPROLOL TARTRATE 12.5 MG TAB NG-TUBE SCH ×2 (09:43→21:25)
[2020-07-29] MEDS: LEVOTHYROXINE IVP 100 MCG/5 ML VIAL IV SCH (09:43)
[2020-07-29] MEDS: PANTOPRAZOLE 40 MG/10 ML VIAL IVP SCH ×2 (09:44→21:24)
[2020-07-29] MEDS: SODIUM CHLORIDE 0.9% IVPB SCH (09:44)
[2020-07-29] MEDS: [UNRECOGNIZED DRUG - OTHER] IVPB SCH (09:44)
[2020-07-29 10:04] LABS: ABG Base Excess -1.8 mmol/L; ABG HCO3 25 mmol/L (21-25); ABG Oxygen Saturation 95.8 % (94-97); ABG PCO2 54 mmHg (35-45); ABG PH 7.28 (7.35-7.45); ABG PO2 80 mmHg (83-108); ABG TCO2 27 mmol/L (19-24); Allen Test Performed? Yes
--- NOTE | 2020-07-29 11:17 | XR ---
EXAMINATION TYPE: XR chest 1V portable DATE OF EXAM: 07/29/2020 COMPARISON: 07/28/2020 INDICATION: Tube placement TECHNIQUE: Single frontal view of the chest is obtained. FINDINGS: The heart size is mildly prominent The pulmonary vasculature is normal. Bibasilar infiltrates are present. Right central venous catheter is present with the tip in the right atrium. Endotracheal tube tip is above the mickey. Nasogastric tube transverses the thorax. IMPRESSION: 1. Mild cardiomegaly. 2. Bibasilar infiltrates. 3. Lines and catheters discussed above.
[2020-07-29] MEDS ORDERED: DEXTROSE 50% SYRINGE 50 ML IVP ONE (11:18)
[2020-07-29 11:28] LABS: Glucose,Whole Blood 46 mg/dL (75-99)
--- NOTE | 2020-07-29 11:28 | P.PN ---
Subjective Progress Note Date: 07/29/20 Pt failed weaning trial yesterday, however, today, much improved RSBI of [address] scan from yesterday demonstrated possible ileus. sugars are well controlled on insulin gtt. Pt is on TPN, Amiodarone, IV Fe, zosyn. Objective - Vital Signs Vital signs: Vital Signs Temp 98.2 F 07/29/20 04:00 Pulse 87 07/29/20 09:00 Resp 32 H 07/29/20 09:00 BP 138/80 07/29/20 09:00 Pulse Ox 97 07/29/20 09:00 Intake & Output 07/28/20 07/29/20 07/29/20 18:59 06:59 18:59 Intake Total 2686.720 1877.724 462.347 Output Total 3265 2080 400 Balance -578.280 -202.276 62.347 Weight 109.4 kg 108 kg Intake: IV 1243 1406 423 Fat Emulsion 20% 250 ml 21 252 21 In Empty Bag 1 bag @ 21 mls/hr IV MoWeFr@1600 [facility] Rx#:[id number] Mvi, Adult No.4 with Vit 300 K 10 ml Trace (Conc-1Ml/ Dose) 1 ml Sodium Chloride 2.5MEQ/ml Vial 15 meq Calcium Gluconate 1 gm Sodium Phosphate 15 mmol In Amino Acid 5%- D15w 1,000 ml @ 60 mls/hr IV .BY DURATION [facility] Rx#: [id number] Mvi, Adult No.4 with Vit 450 840 75 K 10 ml Trace (Conc-1Ml/ Dose) 1 ml Sodium Chloride 2.5MEQ/ml Vial 30 meq Calcium Gluconate 1 gm Potassium Chloride 10 meq In Amino Acid 5%- D15w 1,000 ml @ 75 mls/hr IV .BY DURATION [facility] Rx#: [id number] Piperacillin-Tazobactam 3 200 100 100 .375 gm In Sodium Chloride 0.9% 100 ml @ 25 mls/hr IVPB Q8HR [facility] Rx# :[id number] Sodium Chloride 0.9% 1, 200 160 100 000 ml @ 20 mls/hr IV . Q24H [facility] Rx#:[id number] Sodium Ferric Gluconat- 100 Sucrose 100 mg In Sodium Chloride 0.9% 100 ml @ 100 mls/hr IVPB DAILY [facility] Rx#:[id number] pressure bag 72 54 27 Intake, IV Titration 243.720 471.724 39.347 Amount Amiodarone 300 mg In 250 Dextrose 5% in Water 250 ml @ 0.5 MG/MIN 25 mls/hr IV .Q10H [facility] Rx#: [id number] Dexmedetomidine/0.9% NaCl 63.722 (Pmx) 400 mcg In Empty Bag 1 bag @ Titrate IV . Q0M [facility] Rx#:[id number] Heparin Sod,Pork in 0.45% 67.993 NaCl 25,000 unit In 0.45 % NaCl 1 250ml.bag @ 9.14 UNITS/KG/HR 9.999 mls/hr IV .Q24H [facility] Rx#: [id number] Insulin Regular 100 unit 104.998 153.731 39.347 In Sodium Chloride 0.9% 100 ml @ Per Protocol IV .Q0M [facility] Rx#:[id number] Mvi, Adult No.4 with Vit 75 K 10 ml Trace (Conc-1Ml/ Dose) 1 ml Sodium Chloride 2.5MEQ/ml Vial 15 meq Calcium Gluconate 1 gm Sodium Phosphate 15 mmol In Amino Acid 5%- D15w 1,000 ml @ 60 mls/hr IV .BY DURATION [facility] Rx#: [id number] Oral 1200 Output: Gastric Drainage 725 Urine 2540 2080 400 Other: Voiding Method Indwelling Catheter Indwelling Catheter ABP, PAP, CO, CI - Last Documented Arterial Blood Pressure 140/52 Pulmonary Artery Pressure 33/14 Cardiac Output 6.7 Cardiac Index 3.1 - Exam Gen: intubated, sedated HEENT: normocephalic, atraumatic, moist mucous membranes Resp: Vented: TV 500, RR 14, PEEP 5, FiO2 40% CVS: good distal perfusion x 4, RRR, no murmurs, clicks, gallops GI: soft, NTTP, ND : no SPT, no CVAT, malagon catheter is present MSK: + pitting edema, no clubbing Neuro: non-focal, no sensory deficits, appropriate tone - Labs CBC & Chem 7: 07/29/20 04:05 07/29/20 04:05 Labs: Abnormal Lab Results - Last 24 Hours (Table) 12/11/20 12/11/20 12/11/20 Range/Units 12:14 13:05 14:00 WBC (3.8-10.6) k/uL RBC (4.30-5.90) m/uL Hgb (13.0-17.5) gm/dL Hct (39.0-53.0) % RDW (11.5-15.5) % Neutrophils # (Manual) (1.3-7.7) k/uL Lymphocytes # (Manual) (1.0-4.8) k/uL Monocytes # (Manual) (0-1.0) k/uL Metamyelocytes # (Man) (0) k/uL APTT (22.0-30.0) sec ABG pH (7.35-7.45) ABG pCO2 (35-45) mmHg ABG pO2 (83-108) mmHg ABG Total CO2 (19-24) mmol/L ABG O2 Saturation (94-97) % Sodium (137-145) mmol/L BUN (9-20) mg/dL Creatinine (0.66-1.25) mg/dL Glucose (74-99) mg/dL POC Glucose (mg/dL) 143 H 158 H 203 H (75-99) mg/dL Calcium (8.4-10.2) mg/dL 07/28/20 07/28/20 07/28/20 Range/Units 15:02 16:11 17:19 WBC (3.8-10.6) k/uL RBC (4.30-5.90) m/uL Hgb (13.0-17.5) gm/dL Hct (39.0-53.0) % RDW (11.5-15.5) % Neutrophils # (Manual) (1.3-7.7) k/uL Lymphocytes # (Manual) (1.0-4.8) k/uL Monocytes # (Manual) (0-1.0) k/uL Metamyelocytes # (Man) (0) k/uL APTT (22.0-30.0) sec ABG pH (7.35-7.45) ABG pCO2 (35-45) mmHg ABG pO2 (83-108) mmHg ABG Total CO2 (19-24) mmol/L ABG O2 Saturation (94-97) % Sodium (137-145) mmol/L BUN (9-20) mg/dL Creatinine (0.66-1.25) mg/dL Glucose (74-99) mg/dL POC Glucose (mg/dL) 154 H 143 H 124 H (75-99) mg/dL Calcium (8.4-10.2) mg/dL 07/28/20 07/28/20 07/28/20 Range/Units 18:11 19:04 19:12 WBC (3.8-10.6) k/uL RBC (4.30-5.90) m/uL Hgb (13.0-17.5) gm/dL Hct (39.0-53.0) % RDW (11.5-15.5) % Neutrophils # (Manual) (1.3-7.7) k/uL Lymphocytes # (Manual) (1.0-4.8) k/uL Monocytes # (Manual) (0-1.0) k/uL Metamyelocytes # (Man) (0) k/uL APTT 32.7 H (22.0-30.0) sec ABG pH (7.35-7.45) ABG pCO2 (35-45) mmHg ABG pO2 (83-108) mmHg ABG Total CO2 (19-24) mmol/L ABG O2 Saturation (94-97) % Sodium (137-145) mmol/L BUN (9-20) mg/dL Creatinine (0.66-1.25) mg/dL Glucose (74-99) mg/dL POC Glucose (mg/dL) 143 H 149 H (75-99) mg/dL Calcium (8.4-10.2) mg/dL 07/28/20 07/28/20 07/28/20 Range/Units 21:03 22:35 23:36 WBC (3.8-10.6) k/uL RBC (4.30-5.90) m/uL Hgb (13.0-17.5) gm/dL Hct (39.0-53.0) % RDW (11.5-15.5) % Neutrophils # (Manual) (1.3-7.7) k/uL Lymphocytes # (Manual) (1.0-4.8) k/uL Monocytes # (Manual) (0-1.0) k/uL Metamyelocytes # (Man) (0) k/uL APTT (22.0-30.0) sec ABG pH (7.35-7.45) ABG pCO2 (35-45) mmHg ABG pO2 (83-108) mmHg ABG Total CO2 (19-24) mmol/L ABG O2 Saturation (94-97) % Sodium (137-145) mmol/L BUN (9-20) mg/dL Creatinine (0.66-1.25) mg/dL Glucose (74-99) mg/dL POC Glucose (mg/dL) 208 H 226 H 232 H (75-99) mg/dL Calcium (8.4-10.2) mg/dL 07/29/20 07/29/20 07/29/20 Range/Units 01:10 01:12 02:26 WBC (3.8-10.6) k/uL RBC (4.30-5.90) m/uL Hgb (13.0-17.5) gm/dL Hct (39.0-53.0) % RDW (11.5-15.5) % Neutrophils # (Manual) (1.3-7.7) k/uL Lymphocytes # (Manual) (1.0-4.8) k/uL Monocytes # (Manual) (0-1.0) k/uL Metamyelocytes # (Man) (0) k/uL APTT 127.2 H* (22.0-30.0) sec ABG pH (7.35-7.45) ABG pCO2 (35-45) mmHg ABG pO2 (83-108) mmHg ABG Total CO2 (19-24) mmol/L ABG O2 Saturation (94-97) % Sodium (137-145) mmol/L BUN (9-20) mg/dL Creatinine (0.66-1.25) mg/dL Glucose (74-99) mg/dL POC Glucose (mg/dL) 229 H 216 H (75-99) mg/dL Calcium (8.4-10.2) mg/dL 07/29/20 07/29/20 07/29/20 Range/Units 03:25 04:05 04:05 WBC 17.0 H (3.8-10.6) k/uL RBC 2.72 L (4.30-5.90) m/uL Hgb 8.7 L (13.0-17.5) gm/dL Hct 26.0 L (39.0-53.0) % RDW 16.1 H (11.5-15.5) % Neutrophils # (Manual) 15.30 H (1.3-7.7) k/uL Lymphocytes # (Manual) 0.34 L (1.0-4.8) k/uL Monocytes # (Manual) 1.19 H (0-1.0) k/uL Metamyelocytes # (Man) 0.17 H (0) k/uL APTT (22.0-30.0) sec ABG pH (7.35-7.45) ABG pCO2 (35-45) mmHg ABG pO2 (83-108) mmHg ABG Total CO2 (19-24) mmol/L ABG O2 Saturation (94-97) % Sodium 129 L (137-145) mmol/L BUN 64 H (9-20) mg/dL Creatinine 1.72 H (0.66-1.25) mg/dL Glucose 184 H (74-99) mg/dL POC Glucose (mg/dL) 217 H (75-99) mg/dL Calcium 7.7 L (8.4-10.2) mg/dL 07/29/20 07/29/20 07/29/20 Range/Units 04:05 04:08 05:12 WBC (3.8-10.6) k/uL RBC (4.30-5.90) m/uL Hgb (13.0-17.5) gm/dL Hct (39.0-53.0) % RDW (11.5-15.5) % Neutrophils # (Manual) (1.3-7.7) k/uL Lymphocytes # (Manual) (1.0-4.8) k/uL Monocytes # (Manual) (0-1.0) k/uL Metamyelocytes # (Man) (0) k/uL APTT (22.0-30.0) sec ABG pH (7.35-7.45) ABG pCO2 (35-45) mmHg ABG pO2 (83-108) mmHg ABG Total CO2 25 H (19-24) mmol/L ABG O2 Saturation 98.5 H (94-97) % Sodium (137-145) mmol/L BUN (9-20) mg/dL Creatinine (0.66-1.25) mg/dL Glucose (74-99) mg/dL POC Glucose (mg/dL) 210 H 188 H (75-99) mg/dL Calcium (8.4-10.2) mg/dL 07/29/20 07/29/20 07/29/20 Range/Units 06:13 07:10 09:34 WBC (3.8-10.6) k/uL RBC (4.30-5.90) m/uL Hgb (13.0-17.5) gm/dL Hct (39.0-53.0) % RDW (11.5-15.5) % Neutrophils # (Manual) (1.3-7.7) k/uL Lymphocytes # (Manual) (1.0-4.8) k/uL Monocytes # (Manual) (0-1.0) k/uL Metamyelocytes # (Man) (0) k/uL APTT (22.0-30.0) sec ABG pH (7.35-7.45) ABG pCO2 (35-45) mmHg ABG pO2 (83-108) mmHg ABG Total CO2 (19-24) mmol/L ABG O2 Saturation (94-97) % Sodium (137-145) mmol/L BUN (9-20) mg/dL Creatinine (0.66-1.25) mg/dL Glucose (74-99) mg/dL POC Glucose (mg/dL) 155 H 166 H 71 L (75-99) mg/dL Calcium (8.4-10.2) mg/dL 07/29/20 Range/Units 09:58 WBC (3.8-10.6) k/uL RBC (4.30-5.90) m/uL Hgb (13.0-17.5) gm/dL Hct (39.0-53.0) % RDW (11.5-15.5) % Neutrophils # (Manual) (1.3-7.7) k/uL Lymphocytes # (Manual) (1.0-4.8) k/uL Monocytes # (Manual) (0-1.0) k/uL Metamyelocytes # (Man) (0) k/uL APTT (22.0-30.0) sec ABG pH 7.28 L (7.35-7.45) ABG pCO2 54 H (35-45) mmHg ABG pO2 80 L (83-108) mmHg ABG Total CO2 27 H (19-24) mmol/L ABG O2 Saturation (94-97) % Sodium (137-145) mmol/L BUN (9-20) mg/dL Creatinine (0.66-1.25) mg/dL Glucose (74-99) mg/dL POC Glucose (mg/dL) (75-99) mg/dL Calcium (8.4-10.2) mg/dL Microbiology - Last 24 Hours (Table) 07/27/20 11:50 Nasal Screen MRSA/MSSA - Final Nasal Swab Assessment and Plan Assessment: 1. CAD s/p CABG with 2v bypass, PABLO to LAD, and SVG to posterior decending coronary artery 2. Paroxysmal Atrial Fibrillation, with RVR 3. 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 Pneumatosis, Ischemic Bowel, s/p small bowel resection 5. Acute Blood Loss Anemia, post-operative, resolved 6. Pneumoperitoneum secondary to chest tubes, resolving 7. CONNOR superimposed on CKD, stage III, worsening 8. Hypertension, essential 9. Hyperlipidemia 10. Type II DM, uncontrolled 11. Hypothyroidism 12. Obesity, BMI 30.5 13. Hyponatremia and Hyperkalemia 80 year old man with history of COPD, CKD III, HTN/HLD/CAD/DM, Obesity presented for symptomatic CAD and underwent 2v CABG with post-operative course complicated by respiratory failure secondary to COPD exacerbation, blood loss anemia, paroxysmal atrial fibrillation with RVR, and metabolic derangements. DM 2 - hold metformin - Inulin subcutaneous with sliding scale insulin coverage, check blood sugars every before meals and at bedtime, Levemir added on 07/21. - Blood sugars currently controlled, follow blood sugars closely - A1C from 06/21/2020 5.2, anticipate discharge home back on metformin which may be able to come off in the near future in the outpatient setting. Small Bowel Ischemia - surgery consult - POD #5 s/p resection - LR @ 75cc/hr, can uptitrate as patient appears dry on 07/25 - on zosyn - MRSA nares pending A-fib with RVR On amio and eliquis Off cardizem gtt CONNOR on CKD stage III Baseline cr 1.4-1.5 Likely cardiorenal syndrome, patient received contrast earlier in the admission. Try to avoid IV fluids Recheck in am Avoid nephrotoxic meds Nephrology is following Acute hyponatremia Likely sec to renal failure Monitor Nephrology consulted, checking urine and plasma osmolalities as well as urine sodium. Hyperkalemia Kayexalate 15 g, follow K in a.m. Pneumoperitoneum suspect secondary to mediastinal chest tubes -Tube d/melody -Resolved. Constipation On Senokot, MiraLAX Had a bowel movement today Acute blood loss anemia and thrombocytopenia, anticipated outcome of surgery - follow CBC - transfuse as indicated COPD with acute exacerbation - On steroids, we'll wean down today from 60 to 40 mg every 6 hours. - DuoNebs - on spiriva and advair at home Coronary artery disease -Status post coronary artery bypass grafting -Cardiothoracic and cardiology following HTN - meds per CT surgery - follow BP Hypothyroidism status post partial thyroidectomy - synthroid Morbid obesity with BMI 30.5 -Outpatient structured weight loss Chronic: ADDY Jacobs's Thank you for allowing us to participate in the care of this pleasant patient. Do not hesitate to contact us with questions. Someone can be reached from the [facility] hospitalist group all hours of the day at [phone] or via Contrib.
[2020-07-29] MEDS: 1: MVI, ADULT NO.4 WITH VIT K 10 ML, TRACE (CONC-1ML/DOSE) 1 ML, SODIUM CHLORIDE 2.5MEQ/ IV SCH ×6 (11:44)
[2020-07-29 12:11] LABS: Glucose,Whole Blood 70 mg/dL (75-99)
--- NOTE | 2020-07-29 12:13 | P.PN ---
Progress Note - Text Progress Note Date: 07/29/20 Patient remains on the ventilator. His white count is 17,000. His CAT scan performed last night shows evidence of ileus. There is no evidence of free air or pneumatosis. On exam her vital signs are stable. Abdomen is soft. There are some bowel sounds. Status post small bowel resection for ischemic bowel with pneumatosis. Patient clinically is improving. He'll receive supportive care. We will resume tube feeds once bowel function returns.
[2020-07-29 13:05] LABS: Glucose,Whole Blood 82 mg/dL (75-99)
[2020-07-29] MEDS: DEXMEDETOMIDINE/0.9% NACL(PMX) 400 MCG in EMPTY BAG 1 BAG IV SCH ×3 (13:35→23:04)
--- NOTE | 2020-07-29 13:43 | P.PN ---
Subjective Progress Note Date: 07/29/20 Follow-up for acute kidney injury. Still on a ventilator with minimal settings. No nausea vomiting. Good urine output. Objective - Vital Signs Vital signs: Vital Signs Temp 98.1 F 07/29/20 12:00 Pulse 85 07/29/20 12:15 Resp 18 07/29/20 12:00 BP 138/80 07/29/20 09:00 Pulse Ox 97 07/29/20 12:00 Intake & Output 07/28/20 07/29/20 07/29/20 18:59 06:59 18:59 Intake Total 2686.720 1912.959 710.248 Output Total 3265 2080 500 Balance -578.280 -167.041 210.248 Weight 109.4 kg 108 kg Intake: IV 1243 1406 605 Fat Emulsion 20% 250 ml 21 252 21 In Empty Bag 1 bag @ 21 mls/hr IV MoWeFr@1600 [facility] Rx#:[id number] Mvi, Adult No.4 with Vit 300 K 10 ml Trace (Conc-1Ml/ Dose) 1 ml Sodium Chloride 2.5MEQ/ml Vial 15 meq Calcium Gluconate 1 gm Sodium Phosphate 15 mmol In Amino Acid 5%- D15w 1,000 ml @ 60 mls/hr IV .BY DURATION [facility] Rx#: [id number] Mvi, Adult No.4 with Vit 450 840 225 K 10 ml Trace (Conc-1Ml/ Dose) 1 ml Sodium Chloride 2.5MEQ/ml Vial 30 meq Calcium Gluconate 1 gm Potassium Chloride 10 meq In Amino Acid 5%- D15w 1,000 ml @ 75 mls/hr IV .BY DURATION [facility] Rx#: [id number] Piperacillin-Tazobactam 3 200 100 100 .375 gm In Sodium Chloride 0.9% 100 ml @ 25 mls/hr IVPB Q8HR [facility] Rx# :[id number] Sodium Chloride 0.9% 1, 200 160 120 000 ml @ 20 mls/hr IV . Q24H [facility] Rx#:[id number] Sodium Ferric Gluconat- 100 Sucrose 100 mg In Sodium Chloride 0.9% 100 ml @ 100 mls/hr IVPB DAILY [facility] Rx#:[id number] pressure bag 72 54 39 Intake, IV Titration 243.720 506.959 105.248 Amount Amiodarone 300 mg In 250 Dextrose 5% in Water 250 ml @ 0.5 MG/MIN 25 mls/hr IV .Q10H [facility] Rx#: [id number] Dexmedetomidine/0.9% NaCl 63.722 35.235 (Pmx) 400 mcg In Empty Bag 1 bag @ Titrate IV . Q0M [facility] Rx#:[id number] Heparin Sod,Pork in 0.45% 67.993 65.884 NaCl 25,000 unit In 0.45 % NaCl 1 250ml.bag @ 9.14 UNITS/KG/HR 9.999 mls/hr IV .Q24H [facility] Rx#: [id number] Insulin Regular 100 unit 104.998 153.731 39.364 In Sodium Chloride 0.9% 100 ml @ Per Protocol IV .Q0M [facility] Rx#:[id number] Mvi, Adult No.4 with Vit 75 K 10 ml Trace (Conc-1Ml/ Dose) 1 ml Sodium Chloride 2.5MEQ/ml Vial 15 meq Calcium Gluconate 1 gm Sodium Phosphate 15 mmol In Amino Acid 5%- D15w 1,000 ml @ 60 mls/hr IV .BY DURATION [facility] Rx#: [id number] Oral 1200 Output: Gastric Drainage 725 Urine 2540 2080 500 Other: Voiding Method Indwelling Catheter Indwelling Catheter ABP, PAP, CO, CI - Last Documented Arterial Blood Pressure 125/49 Pulmonary Artery Pressure 33/14 Cardiac Output 6.7 Cardiac Index 3.1 - Exam No acute distress S1-S2 heard Decreased breath sounds, oral intubation Edema Villafana - Labs CBC & Chem 7: 07/29/20 04:05 07/29/20 04:05 Labs: Abnormal Lab Results - Last 24 Hours (Table) 07/28/20 07/28/20 07/28/20 Range/Units 14:00 15:02 16:11 WBC (3.8-10.6) k/uL RBC (4.30-5.90) m/uL Hgb (13.0-17.5) gm/dL Hct (39.0-53.0) % RDW (11.5-15.5) % Neutrophils # (Manual) (1.3-7.7) k/uL Lymphocytes # (Manual) (1.0-4.8) k/uL Monocytes # (Manual) (0-1.0) k/uL Metamyelocytes # (Man) (0) k/uL APTT (22.0-30.0) sec ABG pH (7.35-7.45) ABG pCO2 (35-45) mmHg ABG pO2 (83-108) mmHg ABG Total CO2 (19-24) mmol/L ABG O2 Saturation (94-97) % Sodium (137-145) mmol/L BUN (9-20) mg/dL Creatinine (0.66-1.25) mg/dL Glucose (74-99) mg/dL POC Glucose (mg/dL) 203 H 154 H 143 H (75-99) mg/dL Calcium (8.4-10.2) mg/dL Procalcitonin (0.02-0.09) ng/mL 07/28/20 07/28/20 07/28/20 Range/Units 17:19 18:11 19:04 WBC (3.8-10.6) k/uL RBC (4.30-5.90) m/uL Hgb (13.0-17.5) gm/dL Hct (39.0-53.0) % RDW (11.5-15.5) % Neutrophils # (Manual) (1.3-7.7) k/uL Lymphocytes # (Manual) (1.0-4.8) k/uL Monocytes # (Manual) (0-1.0) k/uL Metamyelocytes # (Man) (0) k/uL APTT (22.0-30.0) sec ABG pH (7.35-7.45) ABG pCO2 (35-45) mmHg ABG pO2 (83-108) mmHg ABG Total CO2 (19-24) mmol/L ABG O2 Saturation (94-97) % Sodium (137-145) mmol/L BUN (9-20) mg/dL Creatinine (0.66-1.25) mg/dL Glucose (74-99) mg/dL POC Glucose (mg/dL) 124 H 143 H 149 H (75-99) mg/dL Calcium (8.4-10.2) mg/dL Procalcitonin (0.02-0.09) ng/mL 07/28/20 07/28/20 07/28/20 Range/Units 19:12 21:03 22:35 WBC (3.8-10.6) k/uL RBC (4.30-5.90) m/uL Hgb (13.0-17.5) gm/dL Hct (39.0-53.0) % RDW (11.5-15.5) % Neutrophils # (Manual) (1.3-7.7) k/uL Lymphocytes # (Manual) (1.0-4.8) k/uL Monocytes # (Manual) (0-1.0) k/uL Metamyelocytes # (Man) (0) k/uL APTT 32.7 H (22.0-30.0) sec ABG pH (7.35-7.45) ABG pCO2 (35-45) mmHg ABG pO2 (83-108) mmHg ABG Total CO2 (19-24) mmol/L ABG O2 Saturation (94-97) % Sodium (137-145) mmol/L BUN (9-20) mg/dL Creatinine (0.66-1.25) mg/dL Glucose (74-99) mg/dL POC Glucose (mg/dL) 208 H 226 H (75-99) mg/dL Calcium (8.4-10.2) mg/dL Procalcitonin (0.02-0.09) ng/mL 07/28/20 07/29/20 07/29/20 Range/Units 23:36 01:10 01:12 WBC (3.8-10.6) k/uL RBC (4.30-5.90) m/uL Hgb (13.0-17.5) gm/dL Hct (39.0-53.0) % RDW (11.5-15.5) % Neutrophils # (Manual) (1.3-7.7) k/uL Lymphocytes # (Manual) (1.0-4.8) k/uL Monocytes # (Manual) (0-1.0) k/uL Metamyelocytes # (Man) (0) k/uL APTT 127.2 H* (22.0-30.0) sec ABG pH (7.35-7.45) ABG pCO2 (35-45) mmHg ABG pO2 (83-108) mmHg ABG Total CO2 (19-24) mmol/L ABG O2 Saturation (94-97) % Sodium (137-145) mmol/L BUN (9-20) mg/dL Creatinine (0.66-1.25) mg/dL Glucose (74-99) mg/dL POC Glucose (mg/dL) 232 H 229 H (75-99) mg/dL Calcium (8.4-10.2) mg/dL Procalcitonin (0.02-0.09) ng/mL 07/29/20 07/29/20 07/29/20 Range/Units 02:26 03:25 04:05 WBC (3.8-10.6) k/uL RBC (4.30-5.90) m/uL Hgb (13.0-17.5) gm/dL Hct (39.0-53.0) % RDW (11.5-15.5) % Neutrophils # (Manual) (1.3-7.7) k/uL Lymphocytes # (Manual) (1.0-4.8) k/uL Monocytes # (Manual) (0-1.0) k/uL Metamyelocytes # (Man) (0) k/uL APTT (22.0-30.0) sec ABG pH (7.35-7.45) ABG pCO2 (35-45) mmHg ABG pO2 (83-108) mmHg ABG Total CO2 (19-24) mmol/L ABG O2 Saturation (94-97) % Sodium (137-145) mmol/L BUN (9-20) mg/dL Creatinine (0.66-1.25) mg/dL Glucose (74-99) mg/dL POC Glucose (mg/dL) 216 H 217 H (75-99) mg/dL Calcium (8.4-10.2) mg/dL Procalcitonin 1.41 H (0.02-0.09) ng/mL 07/29/20 07/29/20 07/29/20 Range/Units 04:05 04:05 04:05 WBC 17.0 H (3.8-10.6) k/uL RBC 2.72 L (4.30-5.90) m/uL Hgb 8.7 L (13.0-17.5) gm/dL Hct 26.0 L (39.0-53.0) % RDW 16.1 H (11.5-15.5) % Neutrophils # (Manual) 15.30 H (1.3-7.7) k/uL Lymphocytes # (Manual) 0.34 L (1.0-4.8) k/uL Monocytes # (Manual) 1.19 H (0-1.0) k/uL Metamyelocytes # (Man) 0.17 H (0) k/uL APTT (22.0-30.0) sec ABG pH (7.35-7.45) ABG pCO2 (35-45) mmHg ABG pO2 (83-108) mmHg ABG Total CO2 (19-24) mmol/L ABG O2 Saturation (94-97) % Sodium 129 L (137-145) mmol/L BUN 64 H (9-20) mg/dL Creatinine 1.72 H (0.66-1.25) mg/dL Glucose 184 H (74-99) mg/dL POC Glucose (mg/dL) 210 H (75-99) mg/dL Calcium 7.7 L (8.4-10.2) mg/dL Procalcitonin (0.02-0.09) ng/mL 07/29/20 07/29/20 07/29/20 Range/Units 04:08 05:12 06:13 WBC (3.8-10.6) k/uL RBC (4.30-5.90) m/uL Hgb (13.0-17.5) gm/dL Hct (39.0-53.0) % RDW (11.5-15.5) % Neutrophils # (Manual) (1.3-7.7) k/uL Lymphocytes # (Manual) (1.0-4.8) k/uL Monocytes # (Manual) (0-1.0) k/uL Metamyelocytes # (Man) (0) k/uL APTT (22.0-30.0) sec ABG pH (7.35-7.45) ABG pCO2 (35-45) mmHg ABG pO2 (83-108) mmHg ABG Total CO2 25 H (19-24) mmol/L ABG O2 Saturation 98.5 H (94-97) % Sodium (137-145) mmol/L BUN (9-20) mg/dL Creatinine (0.66-1.25) mg/dL Glucose (74-99) mg/dL POC Glucose (mg/dL) 188 H 155 H (75-99) mg/dL Calcium (8.4-10.2) mg/dL Procalcitonin (0.02-0.09) ng/mL 07/29/20 07/29/20 07/29/20 Range/Units 07:10 09:34 09:58 WBC (3.8-10.6) k/uL RBC (4.30-5.90) m/uL Hgb (13.0-17.5) gm/dL Hct (39.0-53.0) % RDW (11.5-15.5) % Neutrophils # (Manual) (1.3-7.7) k/uL Lymphocytes # (Manual) (1.0-4.8) k/uL Monocytes # (Manual) (0-1.0) k/uL Metamyelocytes # (Man) (0) k/uL APTT (22.0-30.0) sec ABG pH 7.28 L (7.35-7.45) ABG pCO2 54 H (35-45) mmHg ABG pO2 80 L (83-108) mmHg ABG Total CO2 27 H (19-24) mmol/L ABG O2 Saturation (94-97) % Sodium (137-145) mmol/L BUN (9-20) mg/dL Creatinine (0.66-1.25) mg/dL Glucose (74-99) mg/dL POC Glucose (mg/dL) 166 H 71 L (75-99) mg/dL Calcium (8.4-10.2) mg/dL Procalcitonin (0.02-0.09) ng/mL 07/29/20 07/29/20 07/29/20 Range/Units 11:17 11:31 12:05 WBC (3.8-10.6) k/uL RBC (4.30-5.90) m/uL Hgb (13.0-17.5) gm/dL Hct (39.0-53.0) % RDW (11.5-15.5) % Neutrophils # (Manual) (1.3-7.7) k/uL Lymphocytes # (Manual) (1.0-4.8) k/uL Monocytes # (Manual) (0-1.0) k/uL Metamyelocytes # (Man) (0) k/uL APTT 99.6 H (22.0-30.0) sec ABG pH (7.35-7.45) ABG pCO2 (35-45) mmHg ABG pO2 (83-108) mmHg ABG Total CO2 (19-24) mmol/L ABG O2 Saturation (94-97) % Sodium (137-145) mmol/L BUN (9-20) mg/dL Creatinine (0.66-1.25) mg/dL Glucose (74-99) mg/dL POC Glucose (mg/dL) 46 L 70 L (75-99) mg/dL Calcium (8.4-10.2) mg/dL Procalcitonin (0.02-0.09) ng/mL Microbiology - Last 24 Hours (Table) 07/27/20 11:50 Nasal Screen MRSA/MSSA - Final Nasal Swab Assessment and Plan Assessment: #1 nonoliguric acute kidney injury secondary to hemodynamic instability leading to ischemic ATN. Baseline creatinine 1.0-1.2 MG per DL. #2 hypervolemic hyponatremia #3 status post CABG #4 bowel ischemia status post resection #5 volume overload #6 respiratory acidosis. Plan: #1 add Lasix 40 mg IV twice a day. #2 renal function improving. Continue to monitor. #3 avoid nephrotoxic agents and hypotensive episodes.
[2020-07-29 14:18] LABS: Glucose,Whole Blood 80 mg/dL (75-99)
--- NOTE | 2020-07-29 17:46 | P.PN ---
Subjective HISTORY OF PRESENT ILLNESS: Patient is status post CABG 2. Patient examined this morning the intensive care unit. Patient remains on the ventilator. Patient appears to spontaneously converted to sinus rhythm this afternoon, remains on amiodarone. He is not on any vasopressors. CT chest abdomen and pelvis was completed yesterday showing findings consistent with partial small bowel obstruction. White blood cell count remains elevated at 17, hemoglobin 8.7, sodium 129, creatinine 1.7 which is slightly down from 2.1 yesterday. Patient remains sedated on ventilator. PHYSICAL EXAM: VITAL SIGNS: Blood pressure 134/51, heart rate 71, pulse ox 98% on 40% FiO2 GENERAL: Well-developed, chronically ill-appearing, intubated and sedated NECK: Supple. No JVD or thyromegaly LUNGS: Coarse breath sounds bilaterally, Lungs diminished bilaterally. HEART: Regular rate and rhythm. S1 and S2 heard. EXTREMITIES: Normal range of motion. No clubbing or cyanosis. Peripheral pulses intact. 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 Likely change amiodarone to PO tomorrow, currently in normal sinus rhythm. Continue to monitor ins and outs while on Lasix 40 mg IV twice a day. Creatinine continues to improve with diuresis. Continue Lopressor 12.5 mg twice a day. Wean vent as able. Prognosis guarded. Objective - Vital Signs Vital signs: Vital Signs Temp 98.1 F 07/29/20 12:00 Pulse 78 07/29/20 15:21 Resp 22 07/29/20 14:00 BP 138/80 07/29/20 13:00 Pulse Ox 98 07/29/20 14:00 Intake & Output 07/28/20 07/29/20 07/29/20 18:59 06:59 18:59 Intake Total 2686.720 1912.959 795.298 Output Total 3265 2080 560 Balance -578.280 -167.041 235.298 Weight 109.4 kg 108 kg Intake: IV 1243 1406 686 Fat Emulsion 20% 250 ml 21 252 21 In Empty Bag 1 bag @ 21 mls/hr IV [id number]@1600 [facility] Rx#:[id number] Mvi, Adult No.4 with Vit 300 K 10 ml Trace (Conc-1Ml/ Dose) 1 ml Sodium Chloride 2.5MEQ/ml Vial 15 meq Calcium Gluconate 1 gm Sodium Phosphate 15 mmol In Amino Acid 5%- D15w 1,000 ml @ 60 mls/hr IV .BY DURATION [facility] Rx#: [id number] Mvi, Adult No.4 with Vit 450 840 300 K 10 ml Trace (Conc-1Ml/ Dose) 1 ml Sodium Chloride 2.5MEQ/ml Vial 30 meq Calcium Gluconate 1 gm Potassium Chloride 10 meq In Amino Acid 5%- D15w 1,000 ml @ 75 mls/hr IV .BY DURATION [facility] Rx#: [id number] Piperacillin-Tazobactam 3 200 100 100 .375 gm In Sodium Chloride 0.9% 100 ml @ 25 mls/hr IVPB Q8HR [facility] Rx# :[id number] Sodium Chloride 0.9% 1, 200 160 120 000 ml @ 20 mls/hr IV . Q24H [facility] Rx#:[id number] Sodium Ferric Gluconat- 100 Sucrose 100 mg In Sodium Chloride 0.9% 100 ml @ 100 mls/hr IVPB DAILY [facility] Rx#:[id number] pressure bag 72 54 45 Intake, IV Titration 243.720 506.959 109.298 Amount Amiodarone 300 mg In 250 Dextrose 5% in Water 250 ml @ 0.5 MG/MIN 25 mls/hr IV .Q10H [facility] Rx#: [id number] Dexmedetomidine/0.9% NaCl 4.05 (Pmx) 400 mcg In Empty Bag 1 bag @ 0.2 MCG/KG/HR 5.4 mls/hr IV .[id number] [facility] Rx#:[id number] Dexmedetomidine/0.9% NaCl 63.722 35.235 (Pmx) 400 mcg In Empty Bag 1 bag @ Titrate IV . Q0M [facility] Rx#:[id number] Heparin Sod,Pork in 0.45% 67.993 65.884 NaCl 25,000 unit In 0.45 % NaCl 1 250ml.bag @ 9.14 UNITS/KG/HR 9.999 mls/hr IV .Q24H [facility] Rx#: [id number] Insulin Regular 100 unit 104.998 153.731 39.364 In Sodium Chloride 0.9% 100 ml @ Per Protocol IV .Q0M [facility] Rx#:[id number] Mvi, Adult No.4 with Vit 75 K 10 ml Trace (Conc-1Ml/ Dose) 1 ml Sodium Chloride 2.5MEQ/ml Vial 15 meq Calcium Gluconate 1 gm Sodium Phosphate 15 mmol In Amino Acid 5%- D15w 1,000 ml @ 60 mls/hr IV .BY DURATION [facility] Rx#: [id number] Oral 1200 Output: Gastric Drainage 725 Urine 2540 2080 560 Other: Voiding Method Indwelling Catheter Indwelling Catheter ABP, PAP, CO, CI - Last Documented Arterial Blood Pressure 134/51 Pulmonary Artery Pressure 33/14 Cardiac Output 6.7 Cardiac Index 3.1 - Labs CBC & Chem 7: 07/29/20 04:05 07/29/20 04:05 Labs: Abnormal Lab Results - Last 24 Hours (Table) 07/28/20 07/28/20 07/28/20 Range/Units 18:11 19:04 19:12 WBC (3.8-10.6) k/uL RBC (4.30-5.90) m/uL Hgb (13.0-17.5) gm/dL Hct (39.0-53.0) % RDW (11.5-15.5) % Neutrophils # (Manual) (1.3-7.7) k/uL Lymphocytes # (Manual) (1.0-4.8) k/uL Monocytes # (Manual) (0-1.0) k/uL Metamyelocytes # (Man) (0) k/uL APTT 32.7 H (22.0-30.0) sec ABG pH (7.35-7.45) ABG pCO2 (35-45) mmHg ABG pO2 (83-108) mmHg ABG Total CO2 (19-24) mmol/L ABG O2 Saturation (94-97) % Sodium (137-145) mmol/L BUN (9-20) mg/dL Creatinine (0.66-1.25) mg/dL Glucose (74-99) mg/dL POC Glucose (mg/dL) 143 H 149 H (75-99) mg/dL Calcium (8.4-10.2) mg/dL Procalcitonin (0.02-0.09) ng/mL 07/28/20 07/28/20 07/28/20 Range/Units 21:03 22:35 23:36 WBC (3.8-10.6) k/uL RBC (4.30-5.90) m/uL Hgb (13.0-17.5) gm/dL Hct (39.0-53.0) % RDW (11.5-15.5) % Neutrophils # (Manual) (1.3-7.7) k/uL Lymphocytes # (Manual) (1.0-4.8) k/uL Monocytes # (Manual) (0-1.0) k/uL Metamyelocytes # (Man) (0) k/uL APTT (22.0-30.0) sec ABG pH (7.35-7.45) ABG pCO2 (35-45) mmHg ABG pO2 (83-108) mmHg ABG Total CO2 (19-24) mmol/L ABG O2 Saturation (94-97) % Sodium (137-145) mmol/L BUN (9-20) mg/dL Creatinine (0.66-1.25) mg/dL Glucose (74-99) mg/dL POC Glucose (mg/dL) 208 H 226 H 232 H (75-99) mg/dL Calcium (8.4-10.2) mg/dL Procalcitonin (0.02-0.09) ng/mL 07/29/20 07/29/20 07/29/20 Range/Units 01:10 01:12 02:26 WBC (3.8-10.6) k/uL RBC (4.30-5.90) m/uL Hgb (13.0-17.5) gm/dL Hct (39.0-53.0) % RDW (11.5-15.5) % Neutrophils # (Manual) (1.3-7.7) k/uL Lymphocytes # (Manual) (1.0-4.8) k/uL Monocytes # (Manual) (0-1.0) k/uL Metamyelocytes # (Man) (0) k/uL APTT 127.2 H* (22.0-30.0) sec ABG pH (7.35-7.45) ABG pCO2 (35-45) mmHg ABG pO2 (83-108) mmHg ABG Total CO2 (19-24) mmol/L ABG O2 Saturation (94-97) % Sodium (137-145) mmol/L BUN (9-20) mg/dL Creatinine (0.66-1.25) mg/dL Glucose (74-99) mg/dL POC Glucose (mg/dL) 229 H 216 H (75-99) mg/dL Calcium (8.4-10.2) mg/dL Procalcitonin (0.02-0.09) ng/mL 07/29/20 07/29/20 07/29/20 Range/Units 03:25 04:05 04:05 WBC (3.8-10.6) k/uL RBC (4.30-5.90) m/uL Hgb (13.0-17.5) gm/dL Hct (39.0-53.0) % RDW (11.5-15.5) % Neutrophils # (Manual) (1.3-7.7) k/uL Lymphocytes # (Manual) (1.0-4.8) k/uL Monocytes # (Manual) (0-1.0) k/uL Metamyelocytes # (Man) (0) k/uL APTT (22.0-30.0) sec ABG pH (7.35-7.45) ABG pCO2 (35-45) mmHg ABG pO2 (83-108) mmHg ABG Total CO2 (19-24) mmol/L ABG O2 Saturation (94-97) % Sodium 129 L (137-145) mmol/L BUN 64 H (9-20) mg/dL Creatinine 1.72 H (0.66-1.25) mg/dL Glucose 184 H (74-99) mg/dL POC Glucose (mg/dL) 217 H (75-99) mg/dL Calcium 7.7 L (8.4-10.2) mg/dL Procalcitonin 1.41 H (0.02-0.09) ng/mL 07/29/20 07/29/20 07/29/20 Range/Units 04:05 04:05 04:08 WBC 17.0 H (3.8-10.6) k/uL RBC 2.72 L (4.30-5.90) m/uL Hgb 8.7 L (13.0-17.5) gm/dL Hct 26.0 L (39.0-53.0) % RDW 16.1 H (11.5-15.5) % Neutrophils # (Manual) 15.30 H (1.3-7.7) k/uL Lymphocytes # (Manual) 0.34 L (1.0-4.8) k/uL Monocytes # (Manual) 1.19 H (0-1.0) k/uL Metamyelocytes # (Man) 0.17 H (0) k/uL APTT (22.0-30.0) sec ABG pH (7.35-7.45) ABG pCO2 (35-45) mmHg ABG pO2 (83-108) mmHg ABG Total CO2 25 H (19-24) mmol/L ABG O2 Saturation 98.5 H (94-97) % Sodium (137-145) mmol/L BUN (9-20) mg/dL Creatinine (0.66-1.25) mg/dL Glucose (74-99) mg/dL POC Glucose (mg/dL) 210 H (75-99) mg/dL Calcium (8.4-10.2) mg/dL Procalcitonin (0.02-0.09) ng/mL 07/29/20 07/29/20 07/29/20 Range/Units 05:12 06:13 07:10 WBC (3.8-10.6) k/uL RBC (4.30-5.90) m/uL Hgb (13.0-17.5) gm/dL Hct (39.0-53.0) % RDW (11.5-15.5) % Neutrophils # (Manual) (1.3-7.7) k/uL Lymphocytes # (Manual) (1.0-4.8) k/uL Monocytes # (Manual) (0-1.0) k/uL Metamyelocytes # (Man) (0) k/uL APTT (22.0-30.0) sec ABG pH (7.35-7.45) ABG pCO2 (35-45) mmHg ABG pO2 (83-108) mmHg ABG Total CO2 (19-24) mmol/L ABG O2 Saturation (94-97) % Sodium (137-145) mmol/L BUN (9-20) mg/dL Creatinine (0.66-1.25) mg/dL Glucose (74-99) mg/dL POC Glucose (mg/dL) 188 H 155 H 166 H (75-99) mg/dL Calcium (8.4-10.2) mg/dL Procalcitonin (0.02-0.09) ng/mL 07/29/20 07/29/20 07/29/20 Range/Units 09:34 09:58 11:17 WBC (3.8-10.6) k/uL RBC (4.30-5.90) m/uL Hgb (13.0-17.5) gm/dL Hct (39.0-53.0) % RDW (11.5-15.5) % Neutrophils # (Manual) (1.3-7.7) k/uL Lymphocytes # (Manual) (1.0-4.8) k/uL Monocytes # (Manual) (0-1.0) k/uL Metamyelocytes # (Man) (0) k/uL APTT (22.0-30.0) sec ABG pH 7.28 L (7.35-7.45) ABG pCO2 54 H (35-45) mmHg ABG pO2 80 L (83-108) mmHg ABG Total CO2 27 H (19-24) mmol/L ABG O2 Saturation (94-97) % Sodium (137-145) mmol/L BUN (9-20) mg/dL Creatinine (0.66-1.25) mg/dL Glucose (74-99) mg/dL POC Glucose (mg/dL) 71 L 46 L (75-99) mg/dL Calcium (8.4-10.2) mg/dL Procalcitonin (0.02-0.09) ng/mL 07/29/20 07/29/20 Range/Units 11:31 12:05 WBC (3.8-10.6) k/uL RBC (4.30-5.90) m/uL Hgb (13.0-17.5) gm/dL Hct (39.0-53.0) % RDW (11.5-15.5) % Neutrophils # (Manual) (1.3-7.7) k/uL Lymphocytes # (Manual) (1.0-4.8) k/uL Monocytes # (Manual) (0-1.0) k/uL Metamyelocytes # (Man) (0) k/uL APTT 99.6 H (22.0-30.0) sec ABG pH (7.35-7.45) ABG pCO2 (35-45) mmHg ABG pO2 (83-108) mmHg ABG Total CO2 (19-24) mmol/L ABG O2 Saturation (94-97) % Sodium (137-145) mmol/L BUN (9-20) mg/dL Creatinine (0.66-1.25) mg/dL Glucose (74-99) mg/dL POC Glucose (mg/dL) 70 L (75-99) mg/dL Calcium (8.4-10.2) mg/dL Procalcitonin (0.02-0.09) ng/mL Microbiology - Last 24 Hours (Table) 07/27/20 11:50 Nasal Screen MRSA/MSSA - Final Nasal Swab
[2020-07-29 18:16] LABS: Glucose,Whole Blood 98 mg/dL (75-99)
[2020-07-29] MEDS: FUROSEMIDE 10 MG/ML 4 ML VIAL IV SCH ×2 (18:40→23:05)
[2020-07-29 18:51] LABS: Glucose,Whole Blood 102 mg/dL (75-99)
[2020-07-29 21:17] LABS: Glucose,Whole Blood 125 mg/dL (75-99)
[2020-07-30 00:14] LABS: Glucose,Whole Blood 150 mg/dL (75-99)
[2020-07-30] MEDS: PIPERACILLIN-TAZOBACTAM 3.375 GM in SODIUM CHLORIDE 0.9% 100 ML IVPB SCH ×3 (00:26→15:32)
[2020-07-30 02:05] LABS: Glucose,Whole Blood 131 mg/dL (75-99)
[2020-07-30] MEDS: HYDROmorphone 1 MG/ML 1 ML SYRINGE IVP PRN ×3 (02:14→23:01)
[2020-07-30] MEDS: 1: MVI, ADULT NO.4 WITH VIT K 10 ML, TRACE (CONC-1ML/DOSE) 1 ML, SODIUM CHLORIDE 2.5MEQ/ IV SCH ×24 (02:15→18:51)
[2020-07-30 04:27] LABS: Glucose,Whole Blood 74 mg/dL (75-99)
[2020-07-30 04:37] LABS: Anisocytosis Slight; Basophils % (A) 0 %; Eosinophils # (A) 0.1 k/uL (0-0.7); Eosinophils % (A) 0 %; HCT 26.4 % (39.0-53.0); HGB 8.3 gm/dL (13.0-17.5); Hypochromasia Slight; Lymphocytes # (A) 0.5 k/uL (1.0-4.8); Lymphocytes % (A) 3 %; MCH 30.1 pg (25.0-35.0); MCHC 31.6 g/dL (31.0-37.0); MCV 95.4 fL (80.0-100.0); Mean Platelet Volume 8.5; Monocytes # (A) 0.9 k/uL (0-1.0); Monocytes % (A) 5 %; Neutrophils # (A) 17.3 k/uL (1.3-7.7); Neutrophils % (A) 91 %; Platelet Count 210 k/uL (150-450); Poikilocytosis Moderate; RBC 2.77 m/uL (4.30-5.90); RDW 16.4 % (11.5-15.5)
[2020-07-30 05:01] LABS: Calcium 8.1 mg/dL (8.4-10.2); Magnesium 1.7 mg/dL (1.6-2.3); Phosphorus 2.4 mg/dL (2.5-4.5); Potassium 3.6 mmol/L (3.5-5.1)
[2020-07-30 05:35] LABS: ABG Base Excess 1.4 mmol/L; ABG HCO3 26 mmol/L (21-25); ABG Oxygen Saturation 99.1 % (94-97); ABG PCO2 42 mmHg (35-45); ABG PO2 98 mmHg (83-108); ABG TCO2 27 mmol/L (19-24); Allen Test Performed? Yes
[2020-07-30 06:50] LABS: Glucose,Whole Blood 75 mg/dL (75-99)
--- NOTE | 2020-07-30 07:27 | P.PN ---
Subjective Progress Note Date: 07/30/20 80-year-old male patient postoperative bypass surgery. Postop day number #6. The patient underwent bypass surgery. The patient remains extubated on 3 L of oxygen by nasal cannula. Chest x-ray shows small right-sided pleural effusion. The patient is awake and alert. The patient is using incentive spirometer. The patient is able to sit up on a chair. He is feeling better on a daily basis. The patient is of coronary artery disease and previous stenting of her back in 2002. Patient has hyperlipidemia and hypothyroidism patient has undergone a partial thyroidectomy he had the patient is an ex-smoker. Mother with COPD with an FEV1 of 56% predicted with some bullous changes. The patient has diabetes mellitus type 2 with a preop hemoglobin A1c of 5.2. The patient is, stage III. The postoperative course was complicated by in acute blood loss anemia which is expected outcome of surgery and the patient also developed atrial fibrillation and other expected outcome of surgery. There was also some limited pneumomediastinum secondary to mediastinal tubes. The patient's currently is in normal sinus rhythm. He is using incentive spirometer.he is pulling approximately 500 on the incentive spirometer. No appreciated bronchospasm wheezing on today's evaluation. Chest x-ray shows small bilateral pleural effusion slightly worse on the right. The patient has no chest tubes at this point in time. He remains nature fibrillation with controlled rate. On 07/25, the patient is being seen in the follow-up. The patient is postop day #1 sought 8 cardiac surger2 following coronary artery bypass surgery. Events occurring yesterday were noted. The patient developed worsening abdominal pain and distention and following that the patient had a CAT scan of the abdomen that showed extensive portal venous air and intraluminal air along with dilated small bowel in the mid abdomen. Bowel gangrene an infarction was suspected. The patient also has a mild to moderate-sized right-sided pleural effusion and small pericardial effusion. The patient was taken to the operating room and the patient underwent a exploratory laparotomy for pneumatosis of the small bowel. The patient underwent small bowel resection. The patient was found to have dilated small bowel. The bowel was ischemic approximately 4 inches from the ileocecal valve. Bowel resection was done and following that the patient was kept intubated on mechanical ventilator and the patient was brought back to the ICU. At this point in time, the patient sedated with propofol and the patient currently intubated on a mechanical ventilator. Orogastric and orotracheal tube was placed. The patient also has a right IJ triple-lumen catheter. Patient is currently on no pressors. She had received some Varun-Synephrine and operating room. The patient is currently on AC and a rate of 14 and TV 600 PEEP 5 and FIO2 50%. Propofol at 10 mc/kg/min and the patient has been on LR at 125cc/hr. The patient is on IV zosyn as a broad- spectrum antibiotic coverage.the blood gases from this morning showed a pH of 7.4 with a pCO2 of 35 and pO2 of 74. Chest x-ray showing a right-sided pleural effusion. ET tube is in a good location. Lactated Ringer is down to 75 mL an hour. Urine output is ordered of 20-30 mL. on 07/26/2020, the patient is postop day #2 from his abdominal surgery and postop day #8 from his cardiac surgery. The patientis was resuscitated and the patient overall received a 3 L bolus yesterday and his net fluid balance is positive for liters over the past 24 hours. Hemoglobin is up to 6.4 and the patient will be receiving a unit of packed RBC. We do not think this is related to bleeding and probably this is dilutional. Meanwhile, the patient is sedated with propofol which is running at 35 mcg/kg per minute. The patient is well rested and comfortable. He is an assist-control mode rate of 14 with a total volume of 600 and FiO2 of 50% with a chief of 5. Chest x-ray shows small bilate ral pleural effusion slightly worse on the right. The blood. Shows pH of 7.37 with a pCO2 of 40 and pO2 of 112 and the necessity ventilator changes were done. Abdominal wound is dry clean and intact. No bowel sounds. Surgical wound site over the chest that is dry clean and intact. NG tube is in place. The patient is receiving TPN for nutritional support. IV fluids in the form of normal saline at the rate of 75 mL an hour. Urine output is in order of 30-40 mL an hour. No other significant issues otherwise. No pressors. A sedation holiday will be given and his underlying mental status will be assessed. Weaning parameters will be also assessed.he is currently off Varun-Synephrine. This was discontinued yesterday. On 07/27/2020, the patient is being seen for a follow-up. He is currently on Precedex which is running at 0.55 g per KG per minute. He is well sedated and he is arousable. He is postop day #3 following his abdominal surgery and postop day #9 following his cardiac surgery. He is still on a mechanical ventilator on assist control mode at the rate of 14 with a tidal volume of 500 and a FiO2 of 40% with a PEEP of 5. Chest x-ray showing cardiomegaly. ET tube is in a good location. ET tube is in place. The patient has small bilateral pleural effusions slightly worse on the right. No other acute abnormalities noted. Blood gases from today shows a pH of 7.35 with a pCO2 of 42 and pO2 of 92 on the above-mentioned vent setting. The patient received 2 units of packed RBC yesterday and hemoglobin today is up to 6.9. White blood count is down to 15.3 and the patient is afebrile. The patient is on no pressors for now. He was taken Varun-Synephrine which is currently off. The abdominal wound is dry clean and intact. The surgical wound over the sternum is dry clean and intact. He has a triple lumen catheter in his right IJ. He is on IV Zosyn and he is adequately recovered for now. Dilaudid for pain control. Fluid balance over the past 24 hours is positive for 4.6 L. He is taking TPN which is running at 60 and mother number and a normal saline is currently running at 20 mL an hour. on 07/28/2020, the patient remains intubated on a mechanical ventilator. He is postop day #10 from his cardiac surgery and postoperative day number 4 post abdominal Surgery . This morning, the patient is sedated with Precedex which is running at 0.4 mcg/kg per minute. The patient is arousable. He is following some simple commands. We're the process of weaning the sedation further. His atrial fibrillation is under good control. He is on amiodarone drip maintenance at 0.5 mg per minute. He is hemodynamically stable on no pressors. He remains on a mechanical ventilator. Ventilator setting includes a rate of 14 with a tidal volume of 500 and FiO2 of 40% with a PEEP of 5. Blood gases from today showed a pH of 7.35 with a pCO2 of 43 and pO2 of 93. Chest x-ray shows small bilateral pleural effusions and atelectatic changes in the lung bases. The orotracheal tube is in a good location. The patient is producing adequate amount of urine output. The patient received a unit of packed RBC yesterday and hemoglobin is up to 8.4. The patient is in a 0 fluid balance over the past 24 hours. His white cell count is at 18.And his hemoglobin is at 8.4. His renal function is stable with a creatinine of 2.08. On examination, a has still hy poactive bowel sounds. Surgical wound site is dry clean and intact over the anterior abdominal wall and the sternum. NG tube is in place. Output is minimal at this point in time. He remains on IV Zosyn as an empiric antibiotic coverage. He has not received anticoagulation. He has not receiving enteral feeding and the patient is receiving TPN for nutritional support. 07/29/2020 the patient is postop day #11 from his cardiac surgery and postoperative #5 from his abdominal surgery. He is on Precedex running at 0.2 g per KG per hour. He is arousable. He is following commands. He is on mechanical ventilator. On today's evaluation is a tidal volume of 500 and FiO2 of 40% and a PEEP of 5 and the rate of 14. His blood gas showed a pH of 7.36 with a pCO2 of 43 and pO2 of 92. Chest x-ray showed adequate expansion of both lungs and A. fib is in a good location. He has small bilateral pleural effusions and atelectatic changes in lung bases which is an expected finding.. He also has a small pericardial effusion. He underwent a repeat CAT scan of the abdomen yesterday and it indicated possibility of an underlying ileus. Nevertheless, on examination, he has no abdominal distention. Abdominal surgical wound site is dry clean and intact. He remains on TPN for nutritional support. He remains on IV Zosyn. He is afebrile. The white cell count today is at 17 with a hemoglobin of 8.7. His renal function continues to improve. Creatinine is down to 1.7 with a mean of 64. The sodium level is at 129. His net fluid balance -8 17 mL. Otherwise, is producing adequate amount of urine output. NG tube is in place. Output from the NG is 150 over the past 24 hours. He is still in atrial fibrillation. He remains on amiodarone drip at 0.5 mg per minute. Cardiac rhythm. He is on no pressors for now. At this point is breathing trial yesterday. He did become tachypneic and had a very high minute ventilation. Based on that, the trial was aborted specially the patient was feeling also uncomfortable and he was more short of breath. On 07/30/2020, the patient is much more alert and awake. Is on a low dose of Precedex at 0.2 mcg/kg per minute. He is communicating. He is raising his arms. He is raising his had. He states that he once the tube out. Yesterday, he passed a spontaneous breathing trial. Nevertheless, he was quite weak and debilitated and I was very much consistent and he will failed post extubation. Based on that, I did not extubate the patient. On today's evaluation, he looks good. He is on a CBC plus mode with a tidal volume of 500 with an FiO2 of 40% and a PEEP of 5 and a rate of 14. The blood gas showed a pH of 7.4 with a pCO2 of 42 and pO2 of 98. The chest x-ray shows adequate expansion of both lungs. He received a dose of Lasix yesterday. He is on TPN for nutritional support. He remains on IV Zosyn. He is afebrile. Her white cell count today is at 19.0. Her net fluid balance over the past 24 hours has been -6 on the decline liters. He was in atrial fibrillation and he converted into normal sinus rhythm. He subsequently went back into atrial fibrillation.. He remains on IV heparin. He does have a dusky cyanotic fingers and his right hand involving the fourth and fifth finger. He has an adequate radial pulse. No other issues for now. The plan for today is to give the patient is point is breathing trial once is off the sedation. His postop day #6 from his abdominal surgery and postop day #12 from his cardiac surgery. Objective - Vital Signs Vital signs: Vital Signs Temp 98.0 F 07/30/20 04:00 Pulse 91 07/30/20 07:00 Resp 20 07/30/20 07:00 BP 138/80 07/30/20 04:00 Pulse Ox 92 L 07/30/20 07:00 Intake & Output 07/29/20 07/30/20 07/30/20 18:59 06:59 18:59 Intake Total 6455.522 4780.605 126 Output Total 960 3935 250 Balance 339.298 -1021.395 -124 Intake: IV 1190 1562 126 Amiodarone 300 mg In 250 25 Dextrose 5% in Water 250 ml @ 0.5 MG/MIN 25 mls/hr IV .Q10H [facility] Rx#: [id number] Fat Emulsion 20% 250 ml 21 In Empty Bag 1 bag @ 21 mls/hr IV [id number] [facility] Rx#:[id number] Mvi, Adult No.4 with Vit 600 150 K 10 ml Trace (Conc-1Ml/ Dose) 1 ml Sodium Chloride 2.5MEQ/ml Vial 30 meq Calcium Gluconate 1 gm Potassium Chloride 10 meq In Amino Acid 5%- D15w 1,000 ml @ 75 mls/hr IV .BY DURATION [facility] Rx#: [id number] Piperacillin-Tazobactam 3 200 100 .375 gm In Sodium Chloride 0.9% 100 ml @ 25 mls/hr IVPB Q8HR [facility] Rx# :[id number] Sodium Chloride 0.9% 1, 200 240 20 000 ml @ 20 mls/hr IV . Q24H [facility] Rx#:[id number] Sodium Ferric Gluconat- 100 Sucrose 100 mg In Sodium Chloride 0.9% 100 ml @ 100 mls/hr IVPB DAILY [facility] Rx#:[id number] TPN 750 75 pressure bag 69 72 6 Intake, IV Titration 616.467 7309.605 Amount Amiodarone 300 mg In 250 Dextrose 5% in Water 250 ml @ 0.5 MG/MIN 25 mls/hr IV .Q10H [facility] Rx#: [id number] Dexmedetomidine/0.9% NaCl 4.05 0 (Pmx) 400 mcg In Empty Bag 1 bag @ 0.2 MCG/KG/HR 5.4 mls/hr IV .[id number] [facility] Rx#:[id number] Heparin Sod,Pork in 0.45% 65.884 NaCl 25,000 unit In 0.45 % NaCl 1 250ml.bag @ 9.14 UNITS/KG/HR 9.999 mls/hr IV .Q24H [facility] Rx#: [id number] Insulin Regular 100 unit 39.364 63.605 In Sodium Chloride 0.9% 100 ml @ Per Protocol IV .Q0M [facility] Rx#:[id number] Mvi, Adult No.4 with Vit 1038 K 10 ml Trace (Conc-1Ml/ Dose) 1 ml Sodium Chloride 2.5MEQ/ml Vial 30 meq Calcium Gluconate 1 gm Potassium Chloride 10 meq In Amino Acid 5%- D15w 1,000 ml @ 75 mls/hr IV .BY DURATION [facility] Rx#: [id number] Output: Gastric Drainage 230 Urine 960 3705 250 Emesis 0 Other: Voiding Method Indwelling Catheter ABP, PAP, CO, CI - Last Documented Arterial Blood Pressure 132/60 Pulmonary Artery Pressure 33/14 Cardiac Output 6.7 Cardiac Index 3.1 - Exam Gen. appearance the patient is intubated, comfortable mechanical ventilator. Orogastric and orotracheal place.the patient is arousable. He is sedated. He is easily arousable off sedation. Head exam was generally normal. There was no scleral icterus or corneal arcus. Mucous membranes were moist. Neck was supple and without jugular venous distension, thyromegaly, or carotid bruits. Carotids were easily palpable bilaterally. There was no adenopathy. the patient has orogastric tube and orotracheal tube and the patient has a right IJ triple-lumen catheter Lungs sounds are diminished in the right lung base. Breath sounds are otherwise within normal limits. Sternum stable clean and intact. Cardiac exam revealed the PMI to be normally situated and sized. The rhythm was regular and no extrasystoles were noted during several minutes of auscultation. The first and second heart sounds were normal and physiologic splitting of the second heart sound was noted. There were no murmurs, rubs, clicks, or gallops. Abdomen is distended. Bowel sounds are hypoactive and nearly absent. Surgical wound site is dry. Overall. No direct tenderness. No rebound tenderness. No guarding. hypoactive bowel sounds. Surgical wound site over the anterior abdominal wall is dry clean and intact. Examination of the extremities revealed easily palpable radial, femoral and pedal pulses. There was cyanosis in the fourth and fifth finger in the right hand. Hand is also called. Nevertheless, he remains unchanged from yesterday., No clubbing, trace edema. Examination of the skin revealed no evidence of significant rashes, suspicious appearing nevi or other concerning lesions. Neurologically, the patient is arousable on minimal amount of sedation.he is following commands and the patient does not have any focal neurological deficit. Cranial nerves are essentially intact. - Labs CBC & Chem 7: 07/30/20 04:25 07/30/20 04:25 Labs: Abnormal Lab Results - Last 24 Hours (Table) 07/29/20 07/29/20 07/29/20 Range/Units 04:05 09:34 09:58 WBC (3.8-10.6) k/uL RBC (4.30-5.90) m/uL Hgb (13.0-17.5) gm/dL Hct (39.0-53.0) % RDW (11.5-15.5) % Neutrophils # (1.3-7.7) k/uL Lymphocytes # (1.0-4.8) k/uL APTT (22.0-30.0) sec ABG pH 7.28 L (7.35-7.45) ABG pCO2 54 H (35-45) mmHg ABG pO2 80 L (83-108) mmHg ABG HCO3 (21-25) mmol/L ABG Total CO2 27 H (19-24) mmol/L ABG O2 Saturation (94-97) % Sodium (137-145) mmol/L BUN (9-20) mg/dL Creatinine (0.66-1.25) mg/dL Glucose (74-99) mg/dL POC Glucose (mg/dL) 71 L (75-99) mg/dL Calcium (8.4-10.2) mg/dL Phosphorus (2.5-4.5) mg/dL Procalcitonin 1.41 H (0.02-0.09) ng/mL 07/29/20 07/29/20 07/29/20 Range/Units 11:17 11:31 12:05 WBC (3.8-10.6) k/uL RBC (4.30-5.90) m/uL Hgb (13.0-17.5) gm/dL Hct (39.0-53.0) % RDW (11.5-15.5) % Neutrophils # (1.3-7.7) k/uL Lymphocytes # (1.0-4.8) k/uL APTT 99.6 H (22.0-30.0) sec ABG pH (7.35-7.45) ABG pCO2 (35-45) mmHg ABG pO2 (83-108) mmHg ABG HCO3 (21-25) mmol/L ABG Total CO2 (19-24) mmol/L ABG O2 Saturation (94-97) % Sodium (137-145) mmol/L BUN (9-20) mg/dL Creatinine (0.66-1.25) mg/dL Glucose (74-99) mg/dL POC Glucose (mg/dL) 46 L 70 L (75-99) mg/dL Calcium (8.4-10.2) mg/dL Phosphorus (2.5-4.5) mg/dL Procalcitonin (0.02-0.09) ng/mL 07/29/20 07/29/20 07/29/20 Range/Units 18:44 18:50 21:14 WBC (3.8-10.6) k/uL RBC (4.30-5.90) m/uL Hgb (13.0-17.5) gm/dL Hct (39.0-53.0) % RDW (11.5-15.5) % Neutrophils # (1.3-7.7) k/uL Lymphocytes # (1.0-4.8) k/uL APTT 48.4 H (22.0-30.0) sec ABG pH (7.35-7.45) ABG pCO2 (35-45) mmHg ABG pO2 (83-108) mmHg ABG HCO3 (21-25) mmol/L ABG Total CO2 (19-24) mmol/L ABG O2 Saturation (94-97) % Sodium (137-145) mmol/L BUN (9-20) mg/dL Creatinine (0.66-1.25) mg/dL Glucose (74-99) mg/dL POC Glucose (mg/dL) 102 H 125 H (75-99) mg/dL Calcium (8.4-10.2) mg/dL Phosphorus (2.5-4.5) mg/dL Procalcitonin (0.02-0.09) ng/mL 07/30/20 07/30/20 07/30/20 Range/Units 00:08 02:01 04:25 WBC (3.8-10.6) k/uL RBC (4.30-5.90) m/uL Hgb (13.0-17.5) gm/dL Hct (39.0-53.0) % RDW (11.5-15.5) % Neutrophils # (1.3-7.7) k/uL Lymphocytes # (1.0-4.8) k/uL APTT (22.0-30.0) sec ABG pH (7.35-7.45) ABG pCO2 (35-45) mmHg ABG pO2 (83-108) mmHg ABG HCO3 (21-25) mmol/L ABG Total CO2 (19-24) mmol/L ABG O2 Saturation (94-97) % Sodium 132 L (137-145) mmol/L BUN 65 H (9-20) mg/dL Creatinine 1.77 H (0.66-1.25) mg/dL Glucose 73 L (74-99) mg/dL POC Glucose (mg/dL) 150 H 131 H (75-99) mg/dL Calcium 8.1 L (8.4-10.2) mg/dL Phosphorus 2.4 L (2.5-4.5) mg/dL Procalcitonin (0.02-0.09) ng/mL 07/30/20 07/30/20 07/30/20 Range/Units 04:25 04:25 04:26 WBC 19.0 H (3.8-10.6) k/uL RBC 2.77 L (4.30-5.90) m/uL Hgb 8.3 L (13.0-17.5) gm/dL Hct 26.4 L (39.0-53.0) % RDW 16.4 H (11.5-15.5) % Neutrophils # 17.3 H (1.3-7.7) k/uL Lymphocytes # 0.5 L (1.0-4.8) k/uL APTT 37.7 H (22.0-30.0) sec ABG pH (7.35-7.45) ABG pCO2 (35-45) mmHg ABG pO2 (83-108) mmHg ABG HCO3 (21-25) mmol/L ABG Total CO2 (19-24) mmol/L ABG O2 Saturation (94-97) % Sodium (137-145) mmol/L BUN (9-20) mg/dL Creatinine (0.66-1.25) mg/dL Glucose (74-99) mg/dL POC Glucose (mg/dL) 74 L (75-99) mg/dL Calcium (8.4-10.2) mg/dL Phosphorus (2.5-4.5) mg/dL Procalcitonin (0.02-0.09) ng/mL 07/30/20 Range/Units 05:10 WBC (3.8-10.6) k/uL RBC (4.30-5.90) m/uL Hgb (13.0-17.5) gm/dL Hct (39.0-53.0) % RDW (11.5-15.5) % Neutrophils # (1.3-7.7) k/uL Lymphocytes # (1.0-4.8) k/uL APTT (22.0-30.0) sec ABG pH (7.35-7.45) ABG pCO2 (35-45) mmHg ABG pO2 (83-108) mmHg ABG HCO3 26 H (21-25) mmol/L ABG Total CO2 27 H (19-24) mmol/L ABG O2 Saturation 99.1 H (94-97) % Sodium (137-145) mmol/L BUN (9-20) mg/dL Creatinine (0.66-1.25) mg/dL Glucose (74-99) mg/dL POC Glucose (mg/dL) (75-99) mg/dL Calcium (8.4-10.2) mg/dL Phosphorus (2.5-4.5) mg/dL Procalcitonin (0.02-0.09) ng/mL Assessment and Plan Plan: 1 Symptomatic coronary artery disease, status post two-vessel coronary artery bypass grafting with PABLO to the LAD, SVG to the PDA, postoperative day #12 2 Postoperative atrial fibrillation with rapid ventricular response requiring amiodarone and Metoprolol and he is currently off anticagulation due to the surgical intervention as mentioned above, and the patient continues to be in atrial fibrillation, the patient is currently on amiodarone 0.5 mg per minute continuous infusion. The patient is having on and off episodes of atrial fibrillation. He is converted into sinus rhythm and his back in Fibrillation. He was restarted back on IV heparin for now. Rate is controlled. 3 acute ischemic small bowel, pneumatosis the patient is post exp Laparotomy and small bowel resection. The patient is postop day #6, the patient is receiving TPN for nutritional support. the patient remains nothing by mouth for now. The bowel sounds are hypoactive. The patient remains nothing by mouth. The patient remains on IV Zosyn. He does have some postoperative changes on his CAT scan of the abdomen. May be some underlying ileus. Output is minimal at this point in time. 4 acute hypoxic respiratory failure following bowel surgery. The patient was kept on mechanical ventilator since yesterday. Chest x-ray was noted and the patient is a small to moderate-sized right-sided pleural effusion. Blood gases was noted. the patient has pseudomonas in his lungs and his sputum culture. This is likely a colonizer. A superimposed pneumonia is felt to be less likely. The chest x-ray findings are stable. On the CAT scan of the abdomen, the lung bases showed small bilateral pleural effusions and small atelectatic changes. She is receiving Lasix and currently is on daily Lasix 40 mg every 12 hours. 5 small atelectatic/pleural effusion involving the lung bases in addition to a small to moderate bilateral pleural effusion. 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 9 Acute on chronic kidney disease stage III at baseline, creatinine is up to 1.7, improved from yesterday 10 Diabetes mellitus type 2 11 Postoperative acute blood loss anemia, expected outcome of open heart surgery hemoglobin is update point as the patient received packed RBC transfusion and hemoglobin is at 8.3 12 History of hypertension 13 History of hyperlipidemia 14 leukocytosis which is expected reactive leukocytosis, white cell count is at increased, yet stable at 19.0 Plan: Continue NSS at the rate of 20 mL an hour TPN for nutritional support, currently at 75 mL an hour IV daily Lasix Chest x-ray and labs reviewed Continue vent support and stop the sedation and gradually check weaning parameters and assess the patient's candidacy for further weaning. Contwill further the patient will be able to pass a spontaneous breathing trial. We'll do a follow-up blood gases and consider possibly an exacerbation today.inue IV Zosyn Continue bronchodilators The patient on IV heparin yesterday. This was cleared by the surgeon. No feedings yet. We will continue to follow and make further recommendations based on his clinic al condition CC evaluation more than 30 min Time with Patient: Greater than 30
[2020-07-30] MEDS ORDERED: Potassium Replacement Protocol 1 EACH MISC MISCELLANE PRN (07:31)
[2020-07-30] MEDS: FORMOTEROL FUMARATE 20 MCG/2 ML NEBU INHALATION SCH ×2 (07:33→19:46)
[2020-07-30] MEDS: IPRATROPIUM-ALBUTEROL 3 ML NEB INHALATION SCH ×4 (07:33→19:45)
[2020-07-30] MEDS: BUDESONIDE 1 MG/2 ML NEBU INHALATION SCH ×2 (07:33→19:45)
[2020-07-30] MEDS ORDERED: SODIUM PHOSPHATE 10 MMOL in SODIUM CHLORIDE 0.9% 100 ML IVPB ONE (07:45)
[2020-07-30] MEDS: CHLORHEXIDINE GLUCONATE 15 ML CUP MUCOUS MEM SCH ×2 (08:10→21:27)
--- NOTE | 2020-07-30 08:13 | XR ---
EXAMINATION TYPE: XR chest 1V portable DATE OF EXAM: 07/30/2020 COMPARISON: 07/29/2020 INDICATION: Tube placement TECHNIQUE: Single frontal view of the chest is obtained. FINDINGS: The heart size is mildly prominent. The pulmonary vasculature is normal. Bibasilar infiltrates are present greater on the right. Findings are stable. Endotracheal tube tip is above mickey. Nasogastric tube transverses the thorax. Right central venous catheter tip is in the proximal right atrium IMPRESSION: 1. Stable bilateral lung disease infiltrates are noted 2. Lines and catheters discussed above
[2020-07-30] MEDS: POTASSIUM CHLORIDE 10 MEQ in WATER FOR INJECTION 1 100ML.BAG IVPB SCH ×2 (08:24→10:21)
[2020-07-30 08:37] LABS: Glucose,Whole Blood 95 mg/dL (75-99)
[2020-07-30 08:38] LABS: ABG Base Excess 0.5 mmol/L; ABG HCO3 26 mmol/L (21-25); ABG Oxygen Saturation 97.4 % (94-97); ABG PCO2 49 mmHg (35-45); ABG PH 7.34 (7.35-7.45); ABG PO2 85 mmHg (83-108); ABG TCO2 28 mmol/L (19-24); Allen Test Performed? Yes
[2020-07-30 10:19] LABS: Glucose,Whole Blood 111 mg/dL (75-99)
[2020-07-30] MEDS: MAGNESIUM SULFATE-D5W PMX 1 GM in DEXTROSE/WATER 1 100ML.BAG IVPB SCH ×3 (10:22→22:12)
[2020-07-30] MEDS: ASPIRIN 81 MG PO SCH (10:27)
[2020-07-30] MEDS: METOPROLOL TARTRATE 12.5 MG TAB NG-TUBE SCH ×2 (10:28→21:26)
[2020-07-30] MEDS: LEVOTHYROXINE IVP 100 MCG/5 ML VIAL IV SCH (10:28)
[2020-07-30] MEDS: FUROSEMIDE 10 MG/ML 4 ML VIAL IV SCH ×2 (10:28→21:26)
[2020-07-30] MEDS: PANTOPRAZOLE 40 MG/10 ML VIAL IVP SCH ×2 (10:31→21:26)
[2020-07-30] MEDS: [UNRECOGNIZED DRUG - OTHER] IVPB SCH (10:31)
[2020-07-30] MEDS: SODIUM CHLORIDE 0.9% IVPB SCH (10:31)
--- NOTE | 2020-07-30 11:25 | P.PN ---
Subjective Progress Note Date: 07/30/20 Follow-up for acute kidney injury. Extubated currently on BiPAP. Good urine output negative negative off 2-2.5 L in the last 24 hours. Objective - Vital Signs Vital signs: Vital Signs Temp 98 F 07/30/20 08:00 Pulse 95 07/30/20 11:00 Resp 23 07/30/20 11:00 BP 138/80 07/30/20 04:00 Pulse Ox 100 07/30/20 11:00 Intake & Output 07/29/20 07/30/20 07/30/20 18:59 06:59 18:59 Intake Total 4059.711 9341.605 1135.162 Output Total 960 3935 1175 Balance 339.298 -1021.395 -39.838 Weight 105.5 kg Intake: IV 1190 1562 1030 Amiodarone 300 mg In 250 25 Dextrose 5% in Water 250 ml @ 0.5 MG/MIN 25 mls/hr IV .Q10H [facility] Rx#: [id number] Fat Emulsion 20% 250 ml 21 In Empty Bag 1 bag @ 21 mls/hr IV [id number]@1600 [facility] Rx#:[id number] Magnesium Sulfate-D5w Pmx 100 1 gm In Dextrose/Water 1 100ml.bag @ 100 mls/hr IVPB Q1H [facility] Rx#: [id number] Mvi, Adult No.4 with Vit 600 150 K 10 ml Trace (Conc-1Ml/ Dose) 1 ml Sodium Chloride 2.5MEQ/ml Vial 30 meq Calcium Gluconate 1 gm Potassium Chloride 10 meq In Amino Acid 5%- D15w 1,000 ml @ 75 mls/hr IV .BY DURATION [facility] Rx#: [id number] Piperacillin-Tazobactam 3 200 100 100 .375 gm In Sodium Chloride 0.9% 100 ml @ 25 mls/hr IVPB Q8HR [facility] Rx# :[id number] Potassium Chloride 10 meq 200 In Water For Injection 1 100ml.bag @ 100 mls/hr IVPB Q1H [facility] Rx#: [id number] Sodium Chloride 0.9% 1, 200 240 100 000 ml @ 20 mls/hr IV . Q24H [facility] Rx#:[id number] Sodium Ferric Gluconat- 100 100 Sucrose 100 mg In Sodium Chloride 0.9% 100 ml @ 100 mls/hr IVPB DAILY [facility] Rx#:[id number] TPN 750 375 pressure bag 69 72 30 Intake, IV Titration 664.234 6037.605 105.162 Amount Amiodarone 300 mg In 250 Dextrose 5% in Water 250 ml @ 0.5 MG/MIN 25 mls/hr IV .Q10H [facility] Rx#: [id number] Dexmedetomidine/0.9% NaCl 4.05 0 44.82 (Pmx) 400 mcg In Empty Bag 1 bag @ 0.2 MCG/KG/HR 5.4 mls/hr IV .[id number] [facility] Rx#:[id number] Heparin Sod,Pork in 0.45% 65.884 60.342 NaCl 25,000 unit In 0.45 % NaCl 1 250ml.bag @ 9.14 UNITS/KG/HR 9.999 mls/hr IV .Q24H [facility] Rx#: [id number] Insulin Regular 100 unit 39.364 63.605 In Sodium Chloride 0.9% 100 ml @ Per Protocol IV .Q0M [facility] Rx#:[id number] Mvi, Adult No.4 with Vit 1038 K 10 ml Trace (Conc-1Ml/ Dose) 1 ml Sodium Chloride 2.5MEQ/ml Vial 30 meq Calcium Gluconate 1 gm Potassium Chloride 10 meq In Amino Acid 5%- D15w 1,000 ml @ 75 mls/hr IV .BY DURATION [facility] Rx#: [id number] Output: Gastric Drainage 230 150 Urine 960 3705 1025 Emesis 0 Other: Voiding Method Indwelling Catheter Indwelling Catheter Indwelling Catheter ABP, PAP, CO, CI - Last Documented Arterial Blood Pressure 120/55 Pulmonary Artery Pressure 33/14 Cardiac Output 6.7 Cardiac Index 3.1 - Exam No acute distress S1-S2 heard Decreased breath sounds, oral intubation Edema Villafana - Labs CBC & Chem 7: 07/30/20 04:25 07/30/20 04:25 Labs: Abnormal Lab Results - Last 24 Hours (Table) 07/29/20 07/29/20 07/29/20 Range/Units 04:05 11:17 11:31 WBC (3.8-10.6) k/uL RBC (4.30-5.90) m/uL Hgb (13.0-17.5) gm/dL Hct (39.0-53.0) % RDW (11.5-15.5) % Neutrophils # (1.3-7.7) k/uL Lymphocytes # (1.0-4.8) k/uL APTT 99.6 H (22.0-30.0) sec ABG pH (7.35-7.45) ABG pCO2 (35-45) mmHg ABG HCO3 (21-25) mmol/L ABG Total CO2 (19-24) mmol/L ABG O2 Saturation (94-97) % Sodium (137-145) mmol/L BUN (9-20) mg/dL Creatinine (0.66-1.25) mg/dL Glucose (74-99) mg/dL POC Glucose (mg/dL) 46 L (75-99) mg/dL Calcium (8.4-10.2) mg/dL Phosphorus (2.5-4.5) mg/dL Procalcitonin 1.41 H (0.02-0.09) ng/mL 07/29/20 07/29/20 07/29/20 Range/Units 12:05 18:44 18:50 WBC (3.8-10.6) k/uL RBC (4.30-5.90) m/uL Hgb (13.0-17.5) gm/dL Hct (39.0-53.0) % RDW (11.5-15.5) % Neutrophils # (1.3-7.7) k/uL Lymphocytes # (1.0-4.8) k/uL APTT 48.4 H (22.0-30.0) sec ABG pH (7.35-7.45) ABG pCO2 (35-45) mmHg ABG HCO3 (21-25) mmol/L ABG Total CO2 (19-24) mmol/L ABG O2 Saturation (94-97) % Sodium (137-145) mmol/L BUN (9-20) mg/dL Creatinine (0.66-1.25) mg/dL Glucose (74-99) mg/dL POC Glucose (mg/dL) 70 L 102 H (75-99) mg/dL Calcium (8.4-10.2) mg/dL Phosphorus (2.5-4.5) mg/dL Procalcitonin (0.02-0.09) ng/mL 07/29/20 07/30/20 07/30/20 Range/Units 21:14 00:08 02:01 WBC (3.8-10.6) k/uL RBC (4.30-5.90) m/uL Hgb (13.0-17.5) gm/dL Hct (39.0-53.0) % RDW (11.5-15.5) % Neutrophils # (1.3-7.7) k/uL Lymphocytes # (1.0-4.8) k/uL APTT (22.0-30.0) sec ABG pH (7.35-7.45) ABG pCO2 (35-45) mmHg ABG HCO3 (21-25) mmol/L ABG Total CO2 (19-24) mmol/L ABG O2 Saturation (94-97) % Sodium (137-145) mmol/L BUN (9-20) mg/dL Creatinine (0.66-1.25) mg/dL Glucose (74-99) mg/dL POC Glucose (mg/dL) 125 H 150 H 131 H (75-99) mg/dL Calcium (8.4-10.2) mg/dL Phosphorus (2.5-4.5) mg/dL Procalcitonin (0.02-0.09) ng/mL 07/30/20 07/30/20 07/30/20 Range/Units 04:25 04:25 04:25 WBC 19.0 H (3.8-10.6) k/uL RBC 2.77 L (4.30-5.90) m/uL Hgb 8.3 L (13.0-17.5) gm/dL Hct 26.4 L (39.0-53.0) % RDW 16.4 H (11.5-15.5) % Neutrophils # 17.3 H (1.3-7.7) k/uL Lymphocytes # 0.5 L (1.0-4.8) k/uL APTT 37.7 H (22.0-30.0) sec ABG pH (7.35-7.45) ABG pCO2 (35-45) mmHg ABG HCO3 (21-25) mmol/L ABG Total CO2 (19-24) mmol/L ABG O2 Saturation (94-97) % Sodium 132 L (137-145) mmol/L BUN 65 H (9-20) mg/dL Creatinine 1.77 H (0.66-1.25) mg/dL Glucose 73 L (74-99) mg/dL POC Glucose (mg/dL) (75-99) mg/dL Calcium 8.1 L (8.4-10.2) mg/dL Phosphorus 2.4 L (2.5-4.5) mg/dL Procalcitonin (0.02-0.09) ng/mL 07/30/20 07/30/20 07/30/20 Range/Units 04:26 05:10 08:32 WBC (3.8-10.6) k/uL RBC (4.30-5.90) m/uL Hgb (13.0-17.5) gm/dL Hct (39.0-53.0) % RDW (11.5-15.5) % Neutrophils # (1.3-7.7) k/uL Lymphocytes # (1.0-4.8) k/uL APTT (22.0-30.0) sec ABG pH 7.34 L (7.35-7.45) ABG pCO2 49 H (35-45) mmHg ABG HCO3 26 H 26 H (21-25) mmol/L ABG Total CO2 27 H 28 H (19-24) mmol/L ABG O2 Saturation 99.1 H 97.4 H (94-97) % Sodium (137-145) mmol/L BUN (9-20) mg/dL Creatinine (0.66-1.25) mg/dL Glucose (74-99) mg/dL POC Glucose (mg/dL) 74 L (75-99) mg/dL Calcium (8.4-10.2) mg/dL Phosphorus (2.5-4.5) mg/dL Procalcitonin (0.02-0.09) ng/mL 07/30/20 Range/Units 10:16 WBC (3.8-10.6) k/uL RBC (4.30-5.90) m/uL Hgb (13.0-17.5) gm/dL Hct (39.0-53.0) % RDW (11.5-15.5) % Neutrophils # (1.3-7.7) k/uL Lymphocytes # (1.0-4.8) k/uL APTT (22.0-30.0) sec ABG pH (7.35-7.45) ABG pCO2 (35-45) mmHg ABG HCO3 (21-25) mmol/L ABG Total CO2 (19-24) mmol/L ABG O2 Saturation (94-97) % Sodium (137-145) mmol/L BUN (9-20) mg/dL Creatinine (0.66-1.25) mg/dL Glucose (74-99) mg/dL POC Glucose (mg/dL) 111 H (75-99) mg/dL Calcium (8.4-10.2) mg/dL Phosphorus (2.5-4.5) mg/dL Procalcitonin (0.02-0.09) ng/mL Assessment and Plan Assessment: #1 nonoliguric acute kidney injury secondary to hemodynamic instability leading to ischemic ATN. Baseline creatinine 1.0-1.2 MG per DL. #2 hypervolemic hyponatremia #3 status post CABG #4 bowel ischemia status post resection #5 volume overload #6 respiratory acidosis with metabolic alkalosis. Plan: #1 renal function stable. Continue with Lasix 40 mg IV twice a day. #2 replace electrolytes. #3 avoid nephrotoxic agents and hypotensive episodes.
--- NOTE | 2020-07-30 11:31 | P.PN ---
Progress Note - Text Progress Note Date: 07/30/20 The patient is extubated. He is currently on BiPAP. He is awake. Patient has some incisional pain. On exam her vital signs are stable. Abdomen soft. Incision is clean dry intact. Status post small bowel resection for ischemic bowel. Patient will start tube feeds once bowel function returns. Patient still has persistent leukocytosis with white count 19,000. He'll continue seen receive IV antibiotic
--- NOTE | 2020-07-30 11:31 | P.PN ---
Subjective Progress Note Date: 07/30/20 Principal diagnosis: Symptomatic triple-vessel coronary artery disease, mild left ventricular dysfunction. Previuos medical history of stenting to his right coronary artery in 2002, hypertension, hyperlipidemia, hypothyroid status post partial thyroidectomy, previous tobacco dependence quit smoking 20 years ago, moderate chronic obstructive pulmonary disease with preoperative FEV1 of 56% of predicted value, bullous emphysema, remote history of pneumonia, type 2 diabetes mellitus with a preoperative hemoglobin A1c of 5.2%, chronic kidney disease stage III with a baseline creatinine of 1.4-1.5, family history of premature coronary artery disease with brother having had CABG at less than 50 years old. POD #12 double coronary artery bypass grafting using the left internal mammary artery to left anterior descending coronary artery, reverse greater saphenous vein graft from the aorta to the posterior descending coronary artery. Exclusion of the left atrial appendage using a 35 mm Atriclip, endoscopic harvesting of the right greater saphenous vein from the groin to above the ankle level, graft flow measurement using the LRN system, intraoperative transesophageal echocardiogram and epi-aortic scanning. Postoperative acute blood loss anemia, expected outcome from hemodilution and cardiopulmonary bypass. Postoperative paroxysmal atrial fibrillation, unexpected but common outcome after open heart surgery. Pneumoperitoneum, unexpected Acute on chronic kidney disease secondary to ATN Pneumatosis of the small bowel POD #6 small bowel resection Prolonged mechanical ventilation, unexpected Patient's currently laying in the intensive care unit sedated on mechanical ventilation. Remains in controlled afib, hemodynamically stable on no pressors, continues on IV heparin, amiodarone. Off sedation, alert and following commands. NG tube in place to low intermittent suction with minimal green fluid, hypoactive bowel sounds x 4 quadrants. Abdomen is soft. Weaning trial completed this morning, patient was extubated at 8:55 AM to BiPAP. Currently ap pears comfortable, denies pain. Daughter updated yesterday via telephone. Objective - Vital Signs Vital signs: Vital Signs Temp 98 F 07/30/20 08:00 Pulse 95 07/30/20 11:00 Resp 23 07/30/20 11:00 BP 138/80 07/30/20 04:00 Pulse Ox 100 07/30/20 11:00 Intake & Output 07/29/20 07/30/20 07/30/20 18:59 06:59 18:59 Intake Total 4763.144 3639.605 1135.162 Output Total 960 1455 1175 Balance 339.298 -1021.395 -39.838 Weight 105.5 kg Intake: IV 1190 1562 1030 Amiodarone 300 mg In 250 25 Dextrose 5% in Water 250 ml @ 0.5 MG/MIN 25 mls/hr IV .Q10H [facility] Rx#: [id number] Fat Emulsion 20% 250 ml 21 In Empty Bag 1 bag @ 21 mls/hr IV MoWeFr@1600 [facility] Rx#:[id number] Magnesium Sulfate-D5w Pmx 100 1 gm In Dextrose/Water 1 100ml.bag @ 100 mls/hr IVPB Q1H [facility] Rx#: [id number] Mvi, Adult No.4 with Vit 600 150 K 10 ml Trace (Conc-1Ml/ Dose) 1 ml Sodium Chloride 2.5MEQ/ml Vial 30 meq Calcium Gluconate 1 gm Potassium Chloride 10 meq In Amino Acid 5%- D15w 1,000 ml @ 75 mls/hr IV .BY DURATION [facility] Rx#: [id number] Piperacillin-Tazobactam 3 200 100 100 .375 gm In Sodium Chloride 0.9% 100 ml @ 25 mls/hr IVPB Q8HR [facility] Rx# :[id number] Potassium Chloride 10 meq 200 In Water For Injection 1 100ml.bag @ 100 mls/hr IVPB Q1H [facility] Rx#: [id number] Sodium Chloride 0.9% 1, 200 240 100 000 ml @ 20 mls/hr IV . Q24H [facility] Rx#:[id number] Sodium Ferric Gluconat- 100 100 Sucrose 100 mg In Sodium Chloride 0.9% 100 ml @ 100 mls/hr IVPB DAILY [facility] Rx#:[id number] TPN 750 375 pressure bag 69 72 30 Intake, IV Titration 663.897 5542.605 105.162 Amount Amiodarone 300 mg In 250 Dextrose 5% in Water 250 ml @ 0.5 MG/MIN 25 mls/hr IV .Q10H [facility] Rx#: [id number] Dexmedetomidine/0.9% NaCl 4.05 0 44.82 (Pmx) 400 mcg In Empty Bag 1 bag @ 0.2 MCG/KG/HR 5.4 mls/hr IV .[id number] [facility] Rx#:[id number] Heparin Sod,Pork in 0.45% 65.884 60.342 NaCl 25,000 unit In 0.45 % NaCl 1 250ml.bag @ 9.14 UNITS/KG/HR 9.999 mls/hr IV .Q24H [facility] Rx#: [id number] Insulin Regular 100 unit 39.364 63.605 In Sodium Chloride 0.9% 100 ml @ Per Protocol IV .Q0M [facility] Rx#:[id number] Mvi, Adult No.4 with Vit 1038 K 10 ml Trace (Conc-1Ml/ Dose) 1 ml Sodium Chloride 2.5MEQ/ml Vial 30 meq Calcium Gluconate 1 gm Potassium Chloride 10 meq In Amino Acid 5%- D15w 1,000 ml @ 75 mls/hr IV .BY DURATION [facility] Rx#: [id number] Output: Gastric Drainage 230 150 Urine 960 3705 1025 Emesis 0 Other: Voiding Method Indwelling Catheter Indwelling Catheter Indwelling Catheter ABP, PAP, CO, CI - Last Documented Arterial Blood Pressure 120/55 Pulmonary Artery Pressure 33/14 Cardiac Output 6.7 Cardiac Index 3.1 - Constitutional General appearance: Present: cooperative, no acute distress, obese - Respiratory Details: Lungs sounds diminished bilaterally with coarse breath sounds in the bases. Respirations even, non-labored on BiPAP. Currently current settings FiO2 50%, 10/5. - Cardiovascular Details: S1, S2 present. Irregular rate and rhythm, controlled atrial fibrillation on telemetry with rate in the 80s. Sternum stable. Palpable peripheral pulses bilaterally. Generalized edema present. Heart hugger, antiembolism stockings, SCDs present. Right internal jugular triple-lumen central line, right femoral arterial line present. - Gastrointestinal Gastrointestinal Comment(s): Abdomen soft, nontender, nondistended. Hypoactive bowel sounds x 4 quadrants. NG tube present to low intermittent suction with 400 mL green drainage in 24 hours - Genitourinary Genitourinary Comment(s): Villafana catheter present draining clear, yellow urine. Output 200-300 mL/h overnight, 4665 mL in the last 24 hours - Integumentary Integumentary Comment(s): Skin is warm and dry with evidence of good perfusion. Anterior chest incision well approximated and covered with dry intact dressing. Right lower extremity EVH site well approximated. Mid abdominal incision well approximated with stapl es and covered with dry intact dressing. The patient has shear injury approximately 5 x 7 cm beneath his right shoulder, dry dressing in place - Neurologic Neurologic: Present: CNII-XII intact - Musculoskeletal Musculoskeletal: Present: generalized weakness, strength equal bilaterally - Psychiatric Psychiatric: Present: A&O x's 3, appropriate affect - Allied health notes Allied health notes reviewed: nursing - Labs CBC & Chem 7: 07/30/20 04:25 07/30/20 04:25 Labs: Abnormal Lab Results - Last 24 Hours (Table) 07/29/20 07/29/20 07/29/20 Range/Units 04:05 11:17 11:31 WBC (3.8-10.6) k/uL RBC (4.30-5.90) m/uL Hgb (13.0-17.5) gm/dL Hct (39.0-53.0) % RDW (11.5-15.5) % Neutrophils # (1.3-7.7) k/uL Lymphocytes # (1.0-4.8) k/uL APTT 99.6 H (22.0-30.0) sec ABG pH (7.35-7.45) ABG pCO2 (35-45) mmHg ABG HCO3 (21-25) mmol/L ABG Total CO2 (19-24) mmol/L ABG O2 Saturation (94-97) % Sodium (137-145) mmol/L BUN (9-20) mg/dL Creatinine (0.66-1.25) mg/dL Glucose (74-99) mg/dL POC Glucose (mg/dL) 46 L (75-99) mg/dL Calcium (8.4-10.2) mg/dL Phosphorus (2.5-4.5) mg/dL Procalcitonin 1.41 H (0.02-0.09) ng/mL 07/29/20 07/29/20 07/29/20 Range/Units 12:05 18:44 18:50 WBC (3.8-10.6) k/uL RBC (4.30-5.90) m/uL Hgb (13.0-17.5) gm/dL Hct (39.0-53.0) % RDW (11.5-15.5) % Neutrophils # (1.3-7.7) k/uL Lymphocytes # (1.0-4.8) k/uL APTT 48.4 H (22.0-30.0) sec ABG pH (7.35-7.45) ABG pCO2 (35-45) mmHg ABG HCO3 (21-25) mmol/L ABG Total CO2 (19-24) mmol/L ABG O2 Saturation (94-97) % Sodium (137-145) mmol/L BUN (9-20) mg/dL Creatinine (0.66-1.25) mg/dL Glucose (74-99) mg/dL POC Glucose (mg/dL) 70 L 102 H (75-99) mg/dL Calcium (8.4-10.2) mg/dL Phosphorus (2.5-4.5) mg/dL Procalcitonin (0.02-0.09) ng/mL 07/29/20 07/30/20 07/30/20 Range/Units 21:14 00:08 02:01 WBC (3.8-10.6) k/uL RBC (4.30-5.90) m/uL Hgb (13.0-17.5) gm/dL Hct (39.0-53.0) % RDW (11.5-15.5) % Neutrophils # (1.3-7.7) k/uL Lymphocytes # (1.0-4.8) k/uL APTT (22.0-30.0) sec ABG pH (7.35-7.45) ABG pCO2 (35-45) mmHg ABG HCO3 (21-25) mmol/L ABG Total CO2 (19-24) mmol/L ABG O2 Saturation (94-97) % Sodium (137-145) mmol/L BUN (9-20) mg/dL Creatinine (0.66-1.25) mg/dL Glucose (74-99) mg/dL POC Glucose (mg/dL) 125 H 150 H 131 H (75-99) mg/dL Calcium (8.4-10.2) mg/dL Phosphorus (2.5-4.5) mg/dL Procalcitonin (0.02-0.09) ng/mL 07/30/20 07/30/20 07/30/20 Range/Units 04:25 04:25 04:25 WBC 19.0 H (3.8-10.6) k/uL RBC 2.77 L (4.30-5.90) m/uL Hgb 8.3 L (13.0-17.5) gm/dL Hct 26.4 L (39.0-53.0) % RDW 16.4 H (11.5-15.5) % Neutrophils # 17.3 H (1.3-7.7) k/uL Lymphocytes # 0.5 L (1.0-4.8) k/uL APTT 37.7 H (22.0-30.0) sec ABG pH (7.35-7.45) ABG pCO2 (35-45) mmHg ABG HCO3 (21-25) mmol/L ABG Total CO2 (19-24) mmol/L ABG O2 Saturation (94-97) % Sodium 132 L (137-145) mmol/L BUN 65 H (9-20) mg/dL Creatinine 1.77 H (0.66-1.25) mg/dL Glucose 73 L (74-99) mg/dL POC Glucose (mg/dL) (75-99) mg/dL Calcium 8.1 L (8.4-10.2) mg/dL Phosphorus 2.4 L (2.5-4.5) mg/dL Procalcitonin (0.02-0.09) ng/mL 07/30/20 07/30/20 07/30/20 Range/Units 04:26 05:10 08:32 WBC (3.8-10.6) k/uL RBC (4.30-5.90) m/uL Hgb (13.0-17.5) gm/dL Hct (39.0-53.0) % RDW (11.5-15.5) % Neutrophils # (1.3-7.7) k/uL Lymphocytes # (1.0-4.8) k/uL APTT (22.0-30.0) sec ABG pH 7.34 L (7.35-7.45) ABG pCO2 49 H (35-45) mmHg ABG HCO3 26 H 26 H (21-25) mmol/L ABG Total CO2 27 H 28 H (19-24) mmol/L ABG O2 Saturation 99.1 H 97.4 H (94-97) % Sodium (137-145) mmol/L BUN (9-20) mg/dL Creatinine (0.66-1.25) mg/dL Glucose (74-99) mg/dL POC Glucose (mg/dL) 74 L (75-99) mg/dL Calcium (8.4-10.2) mg/dL Phosphorus (2.5-4.5) mg/dL Procalcitonin (0.02-0.09) ng/mL 07/30/20 Range/Units 10:16 WBC (3.8-10.6) k/uL RBC (4.30-5.90) m/uL Hgb (13.0-17.5) gm/dL Hct (39.0-53.0) % RDW (11.5-15.5) % Neutrophils # (1.3-7.7) k/uL Lymphocytes # (1.0-4.8) k/uL APTT (22.0-30.0) sec ABG pH (7.35-7.45) ABG pCO2 (35-45) mmHg ABG HCO3 (21-25) mmol/L ABG Total CO2 (19-24) mmol/L ABG O2 Saturation (94-97) % Sodium (137-145) mmol/L BUN (9-20) mg/dL Creatinine (0.66-1.25) mg/dL Glucose (74-99) mg/dL POC Glucose (mg/dL) 111 H (75-99) mg/dL Calcium (8.4-10.2) mg/dL Phosphorus (2.5-4.5) mg/dL Procalcitonin (0.02-0.09) ng/mL - Imaging and Cardiology Chest x-ray: report reviewed, image reviewed Assessment and Plan Assessment: 1. Symptomatic triple-vessel coronary artery disease, status post 2 vessel CABG 2. Mild left ventricular dysfunction 3. Previuos history of stenting to his right coronary artery in 2002 4. Hypertension 5. Hyperlipidemia 6. Hypothyroid status post partial thyroidectomy 7. Previous tobacco dependence with bullous emphysema 8. Moderate chronic obstructive pulmonary disease with preoperative FEV1 of 56% of predicted value 9. Remote history of pneumonia 10. Type 2 diabetes mellitus with a preoperative hemoglobin A1c of 5.2% 11. Chronic kidney disease stage III with a baseline creatinine of 1.4-1.5 12. Family history of premature coronary artery disease with brother having had CABG at less than 50 years old 13. Postoperative acute blood loss anemia, expected outcome 14. Postoperative paroxysmal atrial fibrillation, unexpected, status post exclusion of the left atrial appendage 15. Pneumoperitoneum, unexpected 16. Acute on chronic kidney disease with hyponatremia, hyperkalemia 17. Pneumatosis of the small bowel, status post small bowel resection 18. Sputum culture positive for pseudomonas fluorescens 19. Prolonged mechanical ventilation Plan: 1. Continue low dose aspirin, low-dose beta apolinar 2. Continue IV amiodarone for afib. Continue IV heparin for anticoagulation 3. BiPAP management per electric dolly operator. Bronchodilators per pulmonology management. 4. Will monitor daily labs and chest x-rays. No transfusion 5. GI/DVT prophylaxis. 6. Pain control with current medication regimen. 7. Insulin management per Dr. Polk 8. Continue TPN per RD. No tube feedings per Dr. Dempsey 9. Nephrology following. Avoid nephrotoxic agents. Continue IV Lasix per their recommendations 10. Strict accurate intake and output, daily weight 11. Continue IV Zosyn, day 6. No need for any other antibiotics at this time, pseudomonas covered with IV Zosyn 12. More recommendations to follow based on patient's clinical course. Time with Patient: Greater than 30
[2020-07-30 11:54] LABS: Glucose,Whole Blood 151 mg/dL (75-99)
--- NOTE | 2020-07-30 12:00 | P.PN ---
Subjective Progress Note Date: 07/30/20 Pt was successfully extubated to BIPAP this morning at 0900. Saturating 100% on 35% FiO2, 10/5, RR 12. Patient continues on amio gtt, metoprolol BID, and has been net negative 682cc in last 24 hours with 4.8L of UOP. WBC remains persistently elevated, but procalcitonin is trending downward, currently on zosyn for abx coverage. Patient is being fed via TPN, no elemental feeds at this time. Hemoglobin and kidney function have remained stable. Patient is mentating well, no longer on sedation. Objective - Vital Signs Vital signs: Vital Signs Temp 98 F 07/30/20 08:00 Pulse 82 07/30/20 11:47 Resp 23 07/30/20 11:00 BP 138/80 07/30/20 04:00 Pulse Ox 100 07/30/20 11:00 Intake & Output 07/29/20 07/30/20 07/30/20 18:59 06:59 18:59 Intake Total 8338.130 5153.605 1235.162 Output Total 960 3935 1175 Balance 339.298 -1021.395 60.162 Weight 105.5 kg Intake: IV 1190 1562 1130 Amiodarone 300 mg In 250 25 Dextrose 5% in Water 250 ml @ 0.5 MG/MIN 25 mls/hr IV .Q10H [facility] Rx#: [id number] Fat Emulsion 20% 250 ml 21 In Empty Bag 1 bag @ 21 mls/hr IV MoWeFr@1600 [facility] Rx#:[id number] Magnesium Sulfate-D5w Pmx 200 1 gm In Dextrose/Water 1 100ml.bag @ 100 mls/hr IVPB Q1H [facility] Rx#: [id number] Mvi, Adult No.4 with Vit 600 150 K 10 ml Trace (Conc-1Ml/ Dose) 1 ml Sodium Chloride 2.5MEQ/ml Vial 30 meq Calcium Gluconate 1 gm Potassium Chloride 10 meq In Amino Acid 5%- D15w 1,000 ml @ 75 mls/hr IV .BY DURATION [facility] Rx#: [id number] Piperacillin-Tazobactam 3 200 100 100 .375 gm In Sodium Chloride 0.9% 100 ml @ 25 mls/hr IVPB Q8HR [facility] Rx# :[id number] Potassium Chloride 10 meq 200 In Water For Injection 1 100ml.bag @ 100 mls/hr IVPB Q1H [facility] Rx#: [id number] Sodium Chloride 0.9% 1, 200 240 100 000 ml @ 20 mls/hr IV . Q24H [facility] Rx#:[id number] Sodium Ferric Gluconat- 100 100 Sucrose 100 mg In Sodium Chloride 0.9% 100 ml @ 100 mls/hr IVPB DAILY [facility] Rx#:[id number] TPN 750 375 pressure bag 69 72 30 Intake, IV Titration 151.762 6415.605 105.162 Amount Amiodarone 300 mg In 250 Dextrose 5% in Water 250 ml @ 0.5 MG/MIN 25 mls/hr IV .Q10H [facility] Rx#: [id number] Dexmedetomidine/0.9% NaCl 4.05 0 44.82 (Pmx) 400 mcg In Empty Bag 1 bag @ 0.2 MCG/KG/HR 5.4 mls/hr IV .P50V19M [facility] Rx#:[id number] Heparin Sod,Pork in 0.45% 65.884 60.342 NaCl 25,000 unit In 0.45 % NaCl 1 250ml.bag @ 9.14 UNITS/KG/HR 9.999 mls/hr IV .Q24H [facility] Rx#: [id number] Insulin Regular 100 unit 39.364 63.605 In Sodium Chloride 0.9% 100 ml @ Per Protocol IV .Q0M [facility] Rx#:[id number] Mvi, Adult No.4 with Vit 1038 K 10 ml Trace (Conc-1Ml/ Dose) 1 ml Sodium Chloride 2.5MEQ/ml Vial 30 meq Calcium Gluconate 1 gm Potassium Chloride 10 meq In Amino Acid 5%- D15w 1,000 ml @ 75 mls/hr IV .BY DURATION [facility] Rx#: [id number] Output: Gastric Drainage 230 150 Urine 960 3705 1025 Emesis 0 Other: Voiding Method Indwelling Catheter Indwelling Catheter Indwelling Catheter ABP, PAP, CO, CI - Last Documented Arterial Blood Pressure 120/55 Pulmonary Artery Pressure 33/14 Cardiac Output 6.7 Cardiac Index 3.1 - Exam Gen: awake, alert HEENT: normocephalic, atraumatic, moist mucous membranes, + central line Resp: BIPAP - FiO2 35%, 10/5, RR 12 CVS: good distal perfusion x 4, RRR, no murmurs, clicks, gallops GI: soft, NTTP, ND : no SPT, no CVAT, malagon catheter is present MSK: + pitting edema, no clubbing Neuro: non-focal, no sensory deficits, appropriate tone - Labs CBC & Chem 7: 07/30/20 04:25 07/30/20 04:25 Labs: Abnormal Lab Results - Last 24 Hours (Table) 07/29/20 07/29/20 07/29/20 Range/Units 04:05 11:31 12:05 WBC (3.8-10.6) k/uL RBC (4.30-5.90) m/uL Hgb (13.0-17.5) gm/dL Hct (39.0-53.0) % RDW (11.5-15.5) % Neutrophils # (1.3-7.7) k/uL Lymphocytes # (1.0-4.8) k/uL APTT 99.6 H (22.0-30.0) sec ABG pH (7.35-7.45) ABG pCO2 (35-45) mmHg ABG HCO3 (21-25) mmol/L ABG Total CO2 (19-24) mmol/L ABG O2 Saturation (94-97) % Sodium (137-145) mmol/L BUN (9-20) mg/dL Creatinine (0.66-1.25) mg/dL Glucose (74-99) mg/dL POC Glucose (mg/dL) 70 L (75-99) mg/dL Calcium (8.4-10.2) mg/dL Phosphorus (2.5-4.5) mg/dL Procalcitonin 1.41 H (0.02-0.09) ng/mL 07/29/20 07/29/20 07/29/20 Range/Units 18:44 18:50 21:14 WBC (3.8-10.6) k/uL RBC (4.30-5.90) m/uL Hgb (13.0-17.5) gm/dL Hct (39.0-53.0) % RDW (11.5-15.5) % Neutrophils # (1.3-7.7) k/uL Lymphocytes # (1.0-4.8) k/uL APTT 48.4 H (22.0-30.0) sec ABG pH (7.35-7.45) ABG pCO2 (35-45) mmHg ABG HCO3 (21-25) mmol/L ABG Total CO2 (19-24) mmol/L ABG O2 Saturation (94-97) % Sodium (137-145) mmol/L BUN (9-20) mg/dL Creatinine (0.66-1.25) mg/dL Glucose (74-99) mg/dL POC Glucose (mg/dL) 102 H 125 H (75-99) mg/dL Calcium (8.4-10.2) mg/dL Phosphorus (2.5-4.5) mg/dL Procalcitonin (0.02-0.09) ng/mL 07/30/20 07/30/20 07/30/20 Range/Units 00:08 02:01 04:25 WBC (3.8-10.6) k/uL RBC (4.30-5.90) m/uL Hgb (13.0-17.5) gm/dL Hct (39.0-53.0) % RDW (11.5-15.5) % Neutrophils # (1.3-7.7) k/uL Lymphocytes # (1.0-4.8) k/uL APTT (22.0-30.0) sec ABG pH (7.35-7.45) ABG pCO2 (35-45) mmHg ABG HCO3 (21-25) mmol/L ABG Total CO2 (19-24) mmol/L ABG O2 Saturation (94-97) % Sodium 132 L (137-145) mmol/L BUN 65 H (9-20) mg/dL Creatinine 1.77 H (0.66-1.25) mg/dL Glucose 73 L (74-99) mg/dL POC Glucose (mg/dL) 150 H 131 H (75-99) mg/dL Calcium 8.1 L (8.4-10.2) mg/dL Phosphorus 2.4 L (2.5-4.5) mg/dL Procalcitonin (0.02-0.09) ng/mL 07/30/20 07/30/20 07/30/20 Range/Units 04:25 04:25 04:26 WBC 19.0 H (3.8-10.6) k/uL RBC 2.77 L (4.30-5.90) m/uL Hgb 8.3 L (13.0-17.5) gm/dL Hct 26.4 L (39.0-53.0) % RDW 16.4 H (11.5-15.5) % Neutrophils # 17.3 H (1.3-7.7) k/uL Lymphocytes # 0.5 L (1.0-4.8) k/uL APTT 37.7 H (22.0-30.0) sec ABG pH (7.35-7.45) ABG pCO2 (35-45) mmHg ABG HCO3 (21-25) mmol/L ABG Total CO2 (19-24) mmol/L ABG O2 Saturation (94-97) % Sodium (137-145) mmol/L BUN (9-20) mg/dL Creatinine (0.66-1.25) mg/dL Glucose (74-99) mg/dL POC Glucose (mg/dL) 74 L (75-99) mg/dL Calcium (8.4-10.2) mg/dL Phosphorus (2.5-4.5) mg/dL Procalcitonin (0.02-0.09) ng/mL 07/30/20 07/30/20 07/30/20 Range/Units 05:10 08:32 10:16 WBC (3.8-10.6) k/uL RBC (4.30-5.90) m/uL Hgb (13.0-17.5) gm/dL Hct (39.0-53.0) % RDW (11.5-15.5) % Neutrophils # (1.3-7.7) k/uL Lymphocytes # (1.0-4.8) k/uL APTT (22.0-30.0) sec ABG pH 7.34 L (7.35-7.45) ABG pCO2 49 H (35-45) mmHg ABG HCO3 26 H 26 H (21-25) mmol/L ABG Total CO2 27 H 28 H (19-24) mmol/L ABG O2 Saturation 99.1 H 97.4 H (94-97) % Sodium (137-145) mmol/L BUN (9-20) mg/dL Creatinine (0.66-1.25) mg/dL Glucose (74-99) mg/dL POC Glucose (mg/dL) 111 H (75-99) mg/dL Calcium (8.4-10.2) mg/dL Phosphorus (2.5-4.5) mg/dL Procalcitonin (0.02-0.09) ng/mL 07/30/20 Range/Units 11:53 WBC (3.8-10.6) k/uL RBC (4.30-5.90) m/uL Hgb (13.0-17.5) gm/dL Hct (39.0-53.0) % RDW (11.5-15.5) % Neutrophils # (1.3-7.7) k/uL Lymphocytes # (1.0-4.8) k/uL APTT (22.0-30.0) sec ABG pH (7.35-7.45) ABG pCO2 (35-45) mmHg ABG HCO3 (21-25) mmol/L ABG Total CO2 (19-24) mmol/L ABG O2 Saturation (94-97) % Sodium (137-145) mmol/L BUN (9-20) mg/dL Creatinine (0.66-1.25) mg/dL Glucose (74-99) mg/dL POC Glucose (mg/dL) 151 H (75-99) mg/dL Calcium (8.4-10.2) mg/dL Phosphorus (2.5-4.5) mg/dL Procalcitonin (0.02-0.09) ng/mL Assessment and Plan Assessment: 1. CAD s/p CABG with 2v bypass, PABLO to LAD, and SVG to posterior decending coronary artery 2. Paroxysmal Atrial Fibrillation, with RVR 3. 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 Pneumatosis, Ischemic Bowel, s/p small bowel resection 5. Acute Blood Loss Anemia, post-operative, resolved 6. Pneumoperitoneum secondary to chest tubes, resolving 7. CONNOR superimposed on CKD, stage III, worsening 8. Hypertension, essential 9. Hyperlipidemia 10. Type II DM, uncontrolled 11. Hypothyroidism 12. Obesity, BMI 30.5 13. Hyponatremia and Hyperkalemia 80 year old man with history of COPD, CKD III, HTN/HLD/CAD/DM, Obesity presented for symptomatic CAD and underwent 2v CABG with post-operative course complicated by respiratory failure secondary to COPD exacerbation, blood loss anemia, paroxysmal atrial fibrillation with RVR, and metabolic derangements. DM 2 - hold metformin - Inulin subcutaneous with sliding scale insulin coverage, check blood sugars every before meals and at bedtime, Levemir added on 07/21. - Blood sugars currently controlled, follow blood sugars closely - A1C from 06/21/2020 5.2, anticipate discharge home back on metformin which may be able to come off in the near future in the outpatient setting. Small Bowel Ischemia - surgery consult - POD #6 s/p resection - on zosyn - MRSA nares negative A-fib with RVR On amio and eliquis On metoprolol BID Off cardizem gtt CONNOR on CKD stage III Baseline cr 1.4-1.5 Likely cardiorenal syndrome, patient received contrast earlier in the admission. Try to avoid IV fluids Recheck in am Avoid nephrotoxic meds Nephrology is following Acute hyponatremia Likely sec to renal failure Monitor Nephrology consulted, checking urine and plasma osmolalities as well as urine sodium. Hyperkalemia Kayexalate 15 g, follow K in a.m. Pneumoperitoneum suspect secondary to mediastinal chest tubes -Tube d/melody -Resolved. Constipation On Senokot, MiraLAX Had a bowel movement today Acute blood loss anemia and thrombocytopenia, anticipated outcome of surgery - follow CBC - transfuse as indicated COPD with acute exacerbation - On steroids, we'll wean down today from 60 to 40 mg every 6 hours. - DuoNebs - on spiriva and advair at home Coronary artery disease -Status post coronary artery bypass grafting -Cardiothoracic and cardiology following HTN - meds per CT surgery - follow BP Hypothyroidism status post partial thyroidectomy - synthroid Morbid obesity with BMI 30.5 -Outpatient structured weight loss Chronic: ADDY Jacobs's Thank you for allowing us to participate in the care of this pleasant patient. Do not hesitate to contact us with questions. Someone can be reached from the [facility] hospitalist group all hours of the day at [phone] or via [employer].
[2020-07-30 13:00] LABS: Glucose,Whole Blood 173 mg/dL (75-99)
[2020-07-30] MEDS: HEPARIN SOD,PORK IN 0.45% NACL 25,000 UNIT in 0.45% NACL 1 250ML.BAG IV SCH (13:41)
[2020-07-30 14:14] LABS: Glucose,Whole Blood 163 mg/dL (75-99)
--- NOTE | 2020-07-30 14:38 | P.PN ---
Subjective HISTORY OF PRESENT ILLNESS: Patient is status post CABG 2. Patient examined this morning the intensive care unit. Patient was extubated this morning and it placed on BiPAP. Patient more alert and denies any chest pain or pressure. He admits his breathing is fair on the BiPAP. Patient in and out of A. fib. PHYSICAL EXAM: VITAL SIGNS: Blood pressure 134/51, heart rate 71, pulse ox 98% on 40% FiO2 GENERAL: Well-developed, chronically ill-appearing, intubated and sedated NECK: Supple. No JVD or thyromegaly LUNGS: Coarse breath sounds bilaterally, Lungs diminished bilaterally. HEART: Regular rate and rhythm. S1 and S2 heard. EXTREMITIES: Normal range of motion. No clubbing or cyanosis. Peripheral pulses intact. ASSESSMENT: #1 status post two-vessel bypass grafting #2 known history of coronary artery disease with prior RCA stenting in 2002 #3 hyperlipidemia #4 hypertension #5 diabetes #6 hypothyroidism #7 chronic kidney disease #8 history of nicotine dependence #9 moderately severe chronic obstructive pulmonary disease #10 paroxysmal atrial fibrillation #11 pneumoperitoneum, pneumatosis of the small bowel status post bowel resection PLAN: Continue aspirin and heparin drip for atrial fibrillation. Continue amiodarone. Hopeful change of heparin drip to NOAC at some point however we will continue heparin drip for now in case possible need for future surgery. Continue to monitor ins and outs while on Lasix 40 mg IV twice a day. Creatinine appears stable currently with diuresis however increased from admission, possible from prior ATN. Continue Lopressor 12.5 mg twice a day. Prognosis guarded. Objective - Vital Signs Vital signs: Vital Signs Temp 98.2 F 07/30/20 12:00 Pulse 84 07/30/20 14:00 Resp 25 H 07/30/20 14:00 BP 138/80 07/30/20 04:00 Pulse Ox 100 07/30/20 14:00 Intake & Output 07/29/20 07/30/20 07/30/20 18:59 06:59 18:59 Intake Total 0093.489 5399.605 1708.606 Output Total 960 3935 1910 Balance 339.298 -1021.395 -201.394 Weight 105.5 kg Intake: IV 1190 1562 1533 Amiodarone 300 mg In 250 25 Dextrose 5% in Water 250 ml @ 0.5 MG/MIN 25 mls/hr IV .Q10H [facility] Rx#: [id number] Fat Emulsion 20% 250 ml 21 In Empty Bag 1 bag @ 21 mls/hr IV MoWeFr@1600 [facility] Rx#:[id number] Magnesium Sulfate-D5w Pmx 200 1 gm In Dextrose/Water 1 100ml.bag @ 100 mls/hr IVPB Q1H [facility] Rx#: [id number] Mvi, Adult No.4 with Vit 600 150 K 10 ml Trace (Conc-1Ml/ Dose) 1 ml Sodium Chloride 2.5MEQ/ml Vial 30 meq Calcium Gluconate 1 gm Potassium Chloride 10 meq In Amino Acid 5%- D15w 1,000 ml @ 75 mls/hr IV .BY DURATION [facility] Rx#: [id number] Piperacillin-Tazobactam 3 200 100 100 .375 gm In Sodium Chloride 0.9% 100 ml @ 25 mls/hr IVPB Q8HR [facility] Rx# :[id number] Potassium Chloride 10 meq 200 In Water For Injection 1 100ml.bag @ 100 mls/hr IVPB Q1H [facility] Rx#: [id number] Sodium Chloride 0.9% 1, 200 240 160 000 ml @ 20 mls/hr IV . Q24H [facility] Rx#:[id number] Sodium Ferric Gluconat- 100 100 Sucrose 100 mg In Sodium Chloride 0.9% 100 ml @ 100 mls/hr IVPB DAILY [facility] Rx#:[id number] Sodium Phosphate 10 mmol 100 In Sodium Chloride 0.9% 100 ml @ 50 mls/hr IVPB ONCE ONE Rx#:[id number] TPN 750 600 pressure bag 69 72 48 Intake, IV Titration 457.598 6329.605 175.606 Amount Amiodarone 300 mg In 250 Dextrose 5% in Water 250 ml @ 0.5 MG/MIN 25 mls/hr IV .Q10H [facility] Rx#: [id number] Dexmedetomidine/0.9% NaCl 4.05 0 44.82 (Pmx) 400 mcg In Empty Bag 1 bag @ 0.2 MCG/KG/HR 5.4 mls/hr IV .[id number] [facility] Rx#:[id number] Heparin Sod,Pork in 0.45% 65.884 94.174 NaCl 25,000 unit In 0.45 % NaCl 1 250ml.bag @ 9.14 UNITS/KG/HR 9.999 mls/hr IV .Q24H [facility] Rx#: [id number] Insulin Regular 100 unit 39.364 63.605 36.612 In Sodium Chloride 0.9% 100 ml @ Per Protocol IV .Q0M [facility] Rx#:[id number] Mvi, Adult No.4 with Vit 1038 K 10 ml Trace (Conc-1Ml/ Dose) 1 ml Sodium Chloride 2.5MEQ/ml Vial 30 meq Calcium Gluconate 1 gm Potassium Chloride 10 meq In Amino Acid 5%- D15w 1,000 ml @ 75 mls/hr IV .BY DURATION [facility] Rx#: [id number] Output: Gastric Drainage 230 150 Urine 960 3705 1760 Emesis 0 Other: Voiding Method Indwelling Catheter Indwelling Catheter Indwelling Catheter ABP, PAP, CO, CI - Last Documented Arterial Blood Pressure 124/59 Pulmonary Artery Pressure 33/14 Cardiac Output 6.7 Cardiac Index 3.1 - Labs CBC & Chem 7: 07/30/20 04:25 07/30/20 04:25 Labs: Abnormal Lab Results - Last 24 Hours (Table) 07/29/20 07/29/20 07/29/20 Range/Units 18:44 18:50 21:14 WBC (3.8-10.6) k/uL RBC (4.30-5.90) m/uL Hgb (13.0-17.5) gm/dL Hct (39.0-53.0) % RDW (11.5-15.5) % Neutrophils # (1.3-7.7) k/uL Lymphocytes # (1.0-4.8) k/uL APTT 48.4 H (22.0-30.0) sec ABG pH (7.35-7.45) ABG pCO2 (35-45) mmHg ABG HCO3 (21-25) mmol/L ABG Total CO2 (19-24) mmol/L ABG O2 Saturation (94-97) % Sodium (137-145) mmol/L BUN (9-20) mg/dL Creatinine (0.66-1.25) mg/dL Glucose (74-99) mg/dL POC Glucose (mg/dL) 102 H 125 H (75-99) mg/dL Calcium (8.4-10.2) mg/dL Phosphorus (2.5-4.5) mg/dL 07/30/20 07/30/20 07/30/20 Range/Units 00:08 02:01 04:25 WBC (3.8-10.6) k/uL RBC (4.30-5.90) m/uL Hgb (13.0-17.5) gm/dL Hct (39.0-53.0) % RDW (11.5-15.5) % Neutrophils # (1.3-7.7) k/uL Lymphocytes # (1.0-4.8) k/uL APTT (22.0-30.0) sec ABG pH (7.35-7.45) ABG pCO2 (35-45) mmHg ABG HCO3 (21-25) mmol/L ABG Total CO2 (19-24) mmol/L ABG O2 Saturation (94-97) % Sodium 132 L (137-145) mmol/L BUN 65 H (9-20) mg/dL Creatinine 1.77 H (0.66-1.25) mg/dL Glucose 73 L (74-99) mg/dL POC Glucose (mg/dL) 150 H 131 H (75-99) mg/dL Calcium 8.1 L (8.4-10.2) mg/dL Phosphorus 2.4 L (2.5-4.5) mg/dL 07/30/20 07/30/20 07/30/20 Range/Units 04:25 04:25 04:26 WBC 19.0 H (3.8-10.6) k/uL RBC 2.77 L (4.30-5.90) m/uL Hgb 8.3 L (13.0-17.5) gm/dL Hct 26.4 L (39.0-53.0) % RDW 16.4 H (11.5-15.5) % Neutrophils # 17.3 H (1.3-7.7) k/uL Lymphocytes # 0.5 L (1.0-4.8) k/uL APTT 37.7 H (22.0-30.0) sec ABG pH (7.35-7.45) ABG pCO2 (35-45) mmHg ABG HCO3 (21-25) mmol/L ABG Total CO2 (19-24) mmol/L ABG O2 Saturation (94-97) % Sodium (137-145) mmol/L BUN (9-20) mg/dL Creatinine (0.66-1.25) mg/dL Glucose (74-99) mg/dL POC Glucose (mg/dL) 74 L (75-99) mg/dL Calcium (8.4-10.2) mg/dL Phosphorus (2.5-4.5) mg/dL 07/30/20 07/30/20 07/30/20 Range/Units 05:10 08:32 10:16 WBC (3.8-10.6) k/uL RBC (4.30-5.90) m/uL Hgb (13.0-17.5) gm/dL Hct (39.0-53.0) % RDW (11.5-15.5) % Neutrophils # (1.3-7.7) k/uL Lymphocytes # (1.0-4.8) k/uL APTT (22.0-30.0) sec ABG pH 7.34 L (7.35-7.45) ABG pCO2 49 H (35-45) mmHg ABG HCO3 26 H 26 H (21-25) mmol/L ABG Total CO2 27 H 28 H (19-24) mmol/L ABG O2 Saturation 99.1 H 97.4 H (94-97) % Sodium (137-145) mmol/L BUN (9-20) mg/dL Creatinine (0.66-1.25) mg/dL Glucose (74-99) mg/dL POC Glucose (mg/dL) 111 H (75-99) mg/dL Calcium (8.4-10.2) mg/dL Phosphorus (2.5-4.5) mg/dL 07/30/20 07/30/20 07/30/20 Range/Units 11:53 12:59 14:13 WBC (3.8-10.6) k/uL RBC (4.30-5.90) m/uL Hgb (13.0-17.5) gm/dL Hct (39.0-53.0) % RDW (11.5-15.5) % Neutrophils # (1.3-7.7) k/uL Lymphocytes # (1.0-4.8) k/uL APTT (22.0-30.0) sec ABG pH (7.35-7.45) ABG pCO2 (35-45) mmHg ABG HCO3 (21-25) mmol/L ABG Total CO2 (19-24) mmol/L ABG O2 Saturation (94-97) % Sodium (137-145) mmol/L BUN (9-20) mg/dL Creatinine (0.66-1.25) mg/dL Glucose (74-99) mg/dL POC Glucose (mg/dL) 151 H 173 H 163 H (75-99) mg/dL Calcium (8.4-10.2) mg/dL Phosphorus (2.5-4.5) mg/dL
[2020-07-30 15:09] LABS: Glucose,Whole Blood 131 mg/dL (75-99)
[2020-07-30] MEDS: SODIUM CHLORIDE 0.9% 1,000 ML IV SCH (15:17)
[2020-07-30] MEDS: AMIODARONE 300 MG in DEXTROSE 5% IN WATER 250 ML IV SCH ×2 (15:22)
[2020-07-30] MEDS: INSULIN REGULAR 100 UNIT in SODIUM CHLORIDE 0.9% 100 ML IV SCH (15:24)
[2020-07-30] MEDS: FAT EMULSION 20% 250 ML in EMPTY BAG 1 BAG IV SCH (15:53)
[2020-07-30 16:25] LABS: Glucose,Whole Blood 125 mg/dL (75-99)
[2020-07-30 17:51] LABS: Glucose,Whole Blood 108 mg/dL (75-99)
[2020-07-30 19:02] LABS: Glucose,Whole Blood 81 mg/dL (75-99)
[2020-07-30 19:54] LABS: Magnesium 1.8 mg/dL (1.6-2.3); Phosphorus 2.1 mg/dL (2.5-4.5); Potassium 3.1 mmol/L (3.5-5.1)
[2020-07-30 21:06] LABS: Glucose,Whole Blood 121 mg/dL (75-99)
[2020-07-30] MEDS ORDERED: Magnesium Replacement Protocol 1 EACH MISC MISCELLANE PRN (21:42)
[2020-07-30] MEDS ORDERED: POTASSIUM PHOSPHATE 10 MMOL in SODIUM CHLORIDE 0.9% 250 ML IV ONE (22:00)
[2020-07-30] MEDS: POTASSIUM CHLORIDE 20 MEQ in WATER FOR INJECTION 1 100ML.BAG IVPB SCH (22:13)
[2020-07-30 23:08] LABS: Glucose,Whole Blood 179 mg/dL (75-99)
[2020-07-31] MEDS: POTASSIUM CHLORIDE 20 MEQ in WATER FOR INJECTION 1 100ML.BAG IVPB SCH ×3 (00:41→11:25)
[2020-07-31] MEDS: MAGNESIUM SULFATE-D5W PMX 1 GM in DEXTROSE/WATER 1 100ML.BAG IVPB SCH (00:41)
[2020-07-31 00:53] LABS: Glucose,Whole Blood 162 mg/dL (75-99)
[2020-07-31] MEDS: PIPERACILLIN-TAZOBACTAM 3.375 GM in SODIUM CHLORIDE 0.9% 100 ML IVPB SCH ×4 (00:58→23:31)
[2020-07-31 02:06] LABS: Glucose,Whole Blood 89 mg/dL (75-99)
[2020-07-31] MEDS: AMIODARONE 300 MG in DEXTROSE 5% IN WATER 250 ML IV SCH ×10 (02:28→22:00)
[2020-07-31 03:30] LABS: Glucose,Whole Blood 111 mg/dL (75-99)
[2020-07-31 05:10] LABS: Glucose,Whole Blood 166 mg/dL (75-99)
[2020-07-31 05:26] LABS: Anisocytosis Slight; Basophils % (A) 0 %; Eosinophils # (A) 0.1 k/uL (0-0.7); Eosinophils % (A) 0 %; HCT 24.1 % (39.0-53.0); Hypochromasia Slight; Lymphocytes # (A) 0.3 k/uL (1.0-4.8); Lymphocytes % (A) 2 %; MCH 31.5 pg (25.0-35.0); MCHC 33.2 g/dL (31.0-37.0); MCV 95.1 fL (80.0-100.0); Mean Platelet Volume 8.3; Monocytes # (A) 0.9 k/uL (0-1.0); Monocytes % (A) 5 %; Neutrophils # (A) 16.5 k/uL (1.3-7.7); Neutrophils % (A) 92 %; Platelet Count 218 k/uL (150-450); Poikilocytosis Moderate; RBC 2.54 m/uL (4.30-5.90); RDW 16.3 % (11.5-15.5); WBC 18.1 k/uL (3.8-10.6)
[2020-07-31] MEDS: INSULIN REGULAR 100 UNIT in SODIUM CHLORIDE 0.9% 100 ML IV SCH ×2 (05:30→16:11)
[2020-07-31 06:02] LABS: Calcium 7.7 mg/dL (8.4-10.2); Phosphorus 2.6 mg/dL (2.5-4.5); Potassium 3.5 mmol/L (3.5-5.1)
[2020-07-31 06:14] LABS: Glucose,Whole Blood 174 mg/dL (75-99)
[2020-07-31 06:37] LABS: Glucose,Whole Blood 160 mg/dL (75-99)
[2020-07-31] MEDS ORDERED: Potassium Replacement Protocol 1 EACH MISC MISCELLANE PRN (06:40)
[2020-07-31] MEDS: FORMOTEROL FUMARATE 20 MCG/2 ML NEBU INHALATION SCH ×2 (07:13→20:49)
[2020-07-31] MEDS: BUDESONIDE 1 MG/2 ML NEBU INHALATION SCH ×2 (07:13→19:00)
[2020-07-31] MEDS: IPRATROPIUM-ALBUTEROL 3 ML NEB INHALATION SCH ×4 (07:13→20:49)
--- NOTE | 2020-07-31 07:15 | XR ---
EXAMINATION TYPE: XR chest 1V portable DATE OF EXAM: 07/31/2020 COMPARISON: 09/30/2019 HISTORY: SOB, Follow Up FINDINGS: Indwelling tubes and catheters are unchanged. No change in bibasilar opacities. Stable appearance of the cardio-mediastinal structures at this time. Pleural effusion unchanged. IMPRESSION: 1. Stable portable chest. Clinical correlation and follow up until resolution is recommended.
[2020-07-31] MEDS: SODIUM CHLORIDE 0.9% 1,000 ML IV SCH ×2 (07:56→18:45)
[2020-07-31] MEDS: METOPROLOL TARTRATE 12.5 MG TAB NG-TUBE SCH ×2 (08:02→22:02)
[2020-07-31] MEDS: ASPIRIN 81 MG PO SCH (08:02)
[2020-07-31] MEDS: LEVOTHYROXINE IVP 100 MCG/5 ML VIAL IV SCH (08:02)
[2020-07-31] MEDS: FUROSEMIDE 10 MG/ML 4 ML VIAL IV SCH ×2 (08:02→22:02)
[2020-07-31] MEDS: PANTOPRAZOLE 40 MG/10 ML VIAL IVP SCH ×2 (08:02→22:01)
[2020-07-31] MEDS: CHLORHEXIDINE GLUCONATE 15 ML CUP MUCOUS MEM SCH ×2 (08:03→22:02)
[2020-07-31 08:43] LABS: Glucose,Whole Blood 80 mg/dL (75-99)
[2020-07-31] MEDS ORDERED: 1: MVI, ADULT NO.4 WITH VIT K 10 ML, TRACE (CONC-1ML/DOSE) 1 ML, SODIUM CHLORIDE 2.5MEQ/ IV SCH ×12 (09:00→23:00)
[2020-07-31 10:23] LABS: Glucose,Whole Blood 82 mg/dL (75-99)
--- NOTE | 2020-07-31 11:01 | P.PN ---
Subjective Progress Note Date: 07/31/20 Principal diagnosis: Symptomatic triple-vessel coronary artery disease, mild left ventricular dysfunction. Previuos medical history of stenting to his right coronary artery in 2002, hypertension, hyperlipidemia, hypothyroid status post partial thyroidectomy, previous tobacco dependence quit smoking 20 years ago, moderate chronic obstructive pulmonary disease with preoperative FEV1 of 56% of predicted value, bullous emphysema, remote history of pneumonia, type 2 diabetes mellitus with a preoperative hemoglobin A1c of 5.2%, chronic kidney disease stage III with a baseline creatinine of 1.4-1.5, family history of premature coronary artery disease with brother having had CABG at less than 50 years old. POD #13 double coronary artery bypass grafting using the left internal mammary artery to left anterior descending coronary artery, reverse greater saphenous vein graft from the aorta to the posterior descending coronary artery. Exclusion of the left atrial appendage using a 35 mm Atriclip, endoscopic harvesting of the right greater saphenous vein from the groin to above the ankle level, graft flow measurement using the [employer] system, intraoperative transesophageal echocardiogram and epi-aortic scanning. Postoperative acute blood loss anemia, expected outcome from hemodilution and cardiopulmonary bypass. Postoperative paroxysmal atrial fibrillation, unexpected but common outcome after open heart surgery. Pneumoperitoneum, unexpected Acute on chronic kidney disease secondary to ATN Pneumatosis of the small bowel POD #7 small bowel resection Prolonged mechanical ventilation, unexpected Patient's currently laying in the intensive care unit currently on BiPAP. He was extubated yesterday morning and has tolerated BiPAP well. Remains in controlled afib, hemodynamically stable on no pressors, continues on IV heparin, amiodarone. NG tube in place to low intermittent suction with minimal green fluid, hypoactive bowel sounds x 4 quadrants. Abdomen is soft, awaiting general surgery approval to initiate tube feeding, remains on TPN. Currently appears comfortable, denies pain. Daughter updated yesterday via telephone. Objective - Vital Signs Vital signs: Vital Signs Temp 98.5 F 07/31/20 08:00 Pulse 87 07/31/20 10:47 Resp 36 H 07/31/20 08:00 BP 138/80 07/31/20 08:00 Pulse Ox 93 L 07/31/20 08:00 Intake & Output 07/30/20 07/31/20 07/31/20 18:59 06:59 18:59 Intake Total 3271.268 2071.498 202 Output Total 2940 2640 370 Balance 331.268 -568.502 -168 Weight 105.5 kg 104 kg Intake: IV 2016 Amiodarone 300 mg In 25 100 Dextrose 5% in Water 250 ml @ 0.5 MG/MIN 25 mls/hr IV .Q10H [facility] Rx#: [id number] Fat Emulsion 20% 250 ml 84 In Empty Bag 1 bag @ 21 mls/hr IV [id number] [facility] Rx#:[id number] Magnesium Sulfate-D5w Pmx 200 200 1 gm In Dextrose/Water 1 100ml.bag @ 100 mls/hr IVPB Q1H [facility] Rx#: [id number] Piperacillin-Tazobactam 3 200 100 .375 gm In Sodium Chloride 0.9% 100 ml @ 25 mls/hr IVPB Q8HR [facility] Rx# :[id number] Potassium Chloride 10 meq 200 200 In Water For Injection 1 100ml.bag @ 100 mls/hr IVPB Q1H [facility] Rx#: [id number] Sodium Chloride 0.9% 1, 220 240 40 000 ml @ 20 mls/hr IV . Q24H [facility] Rx#:[id number] Sodium Ferric Gluconat- 100 Sucrose 100 mg In Sodium Chloride 0.9% 100 ml @ 100 mls/hr IVPB DAILY [facility] Rx#:[id number] Sodium Phosphate 10 mmol 100 100 In Sodium Chloride 0.9% 100 ml @ 50 mls/hr IVPB ONCE ONE Rx#:[id number] TPN 900 900 150 pressure bag 72 72 12 Intake, IV Titration 1254.268 75.498 Amount Dexmedetomidine/0.9% NaCl 44.82 (Pmx) 400 mcg In Empty Bag 1 bag @ 0.2 MCG/KG/HR 5.4 mls/hr IV .[id number] [facility] Rx#:[id number] Heparin Sod,Pork in 0.45% 94.174 NaCl 25,000 unit In 0.45 % NaCl 1 250ml.bag @ 9.14 UNITS/KG/HR 9.999 mls/hr IV .Q24H [facility] Rx#: [id number] Insulin Regular 100 unit 77.274 75.498 In Sodium Chloride 0.9% 100 ml @ Per Protocol IV .Q0M [facility] Rx#:[id number] Mvi, Adult No.4 with Vit 1038 K 10 ml Trace (Conc-1Ml/ Dose) 1 ml Sodium Chloride 2.5MEQ/ml Vial 30 meq Calcium Gluconate 1 gm Potassium Chloride 10 meq In Amino Acid 5%- D15w 1,000 ml @ 75 mls/hr IV .BY DURATION [facility] Rx#: [id number] Output: Gastric Drainage 150 100 Urine 2790 2640 270 Emesis 0 Other: Voiding Method Indwelling Catheter Indwelling Catheter Indwelling Catheter ABP, PAP, CO, CI - Last Documented Arterial Blood Pressure 117/48 Pulmonary Artery Pressure 33/14 Cardiac Output 6.7 Cardiac Index 3.1 - Constitutional General appearance: Present: cooperative, no acute distress, obese - Respiratory Details: Lungs sounds diminished bilaterally with coarse breath sounds in the bases. Res pirations even, non-labored on BiPAP, 35%, 10/5. Strong cough - Cardiovascular Details: S1, S2 present. Irregular rate and rhythm, controlled atrial fibrillation on telemetry with rate in the 90s. Sternum stable. Palpable peripheral pulses bilaterally. Generalized edema present. Heart hugger, antiembolism stockings, SCDs present. Right internal jugular triple-lumen central line, right femoral arterial line present. - Gastrointestinal Gastrointestinal Comment(s): Abdomen soft, nontender, nondistended. Hypoactive bowel sounds x 4 quadrants. NG tube present to low intermittent suction with 150 mL green drainage in 24 hours - Genitourinary Genitourinary Comment(s): Villafana catheter present draining clear, yellow urine. Output 200-500 mL/h overnight, 5430 mL in the last 24 hours - Integumentary Integumentary Comment(s): Skin is warm and dry with evidence of good perfusion. Anterior chest incision well approximated and covered with dry intact dressing. Right lower extremity EVH site well approximated. Mid abdominal incision well approximated with eliecer and covered with dry intact dressing. The patient has shear injury approximately 5 x 7 cm beneath his right shoulder, dry dressing in place - Neurologic Neurologic: Present: CNII-XII intact - Musculoskeletal Musculoskeletal: Present: generalized weakness, strength equal bilaterally - Psychiatric Psychiatric: Present: A&O x's 3, appropriate affect, intact judgment & insight - Allied health notes Allied health notes reviewed: nursing - Labs CBC & Chem 7: 07/31/20 05:06 07/31/20 05:06 Labs: Abnormal Lab Results - Last 24 Hours (Table) 07/30/20 07/30/20 07/30/20 Range/Units 11:53 12:59 14:13 WBC (3.8-10.6) k/uL RBC (4.30-5.90) m/uL Hgb (13.0-17.5) gm/dL Hct (39.0-53.0) % RDW (11.5-15.5) % Neutrophils # (1.3-7.7) k/uL Lymphocytes # (1.0-4.8) k/uL APTT (22.0-30.0) sec Sodium (137-145) mmol/L Potassium (3.5-5.1) mmol/L BUN (9-20) mg/dL Creatinine (0.66-1.25) mg/dL Glucose (74-99) mg/dL POC Glucose (mg/dL) 151 H 173 H 163 H (75-99) mg/dL Calcium (8.4-10.2) mg/dL Phosphorus (2.5-4.5) mg/dL 07/30/20 07/30/20 07/30/20 Range/Units 14:30 15:07 16:24 WBC (3.8-10.6) k/uL RBC (4.30-5.90) m/uL Hgb (13.0-17.5) gm/dL Hct (39.0-53.0) % RDW (11.5-15.5) % Neutrophils # (1.3-7.7) k/uL Lymphocytes # (1.0-4.8) k/uL APTT 63.1 H (22.0-30.0) sec Sodium (137-145) mmol/L Potassium (3.5-5.1) mmol/L BUN (9-20) mg/dL Creatinine (0.66-1.25) mg/dL Glucose (74-99) mg/dL POC Glucose (mg/dL) 131 H 125 H (75-99) mg/dL Calcium (8.4-10.2) mg/dL Phosphorus (2.5-4.5) mg/dL 07/30/20 07/30/20 07/30/20 Range/Units 17:50 19:05 21:04 WBC (3.8-10.6) k/uL RBC (4.30-5.90) m/uL Hgb (13.0-17.5) gm/dL Hct (39.0-53.0) % RDW (11.5-15.5) % Neutrophils # (1.3-7.7) k/uL Lymphocytes # (1.0-4.8) k/uL APTT (22.0-30.0) sec Sodium (137-145) mmol/L Potassium 3.1 L (3.5-5.1) mmol/L BUN (9-20) mg/dL Creatinine (0.66-1.25) mg/dL Glucose (74-99) mg/dL POC Glucose (mg/dL) 108 H 121 H (75-99) mg/dL Calcium (8.4-10.2) mg/dL Phosphorus 2.1 L (2.5-4.5) mg/dL 07/30/20 07/31/20 07/31/20 Range/Units 23:07 00:50 03:27 WBC (3.8-10.6) k/uL RBC (4.30-5.90) m/uL Hgb (13.0-17.5) gm/dL Hct (39.0-53.0) % RDW (11.5-15.5) % Neutrophils # (1.3-7.7) k/uL Lymphocytes # (1.0-4.8) k/uL APTT (22.0-30.0) sec Sodium (137-145) mmol/L Potassium (3.5-5.1) mmol/L BUN (9-20) mg/dL Creatinine (0.66-1.25) mg/dL Glucose (74-99) mg/dL POC Glucose (mg/dL) 179 H 162 H 111 H (75-99) mg/dL Calcium (8.4-10.2) mg/dL Phosphorus (2.5-4.5) mg/dL 07/31/20 07/31/20 07/31/20 Range/Units 05:06 05:06 05:06 WBC 18.1 H (3.8-10.6) k/uL RBC 2.54 L (4.30-5.90) m/uL Hgb 8.0 L (13.0-17.5) gm/dL Hct 24.1 L (39.0-53.0) % RDW 16.3 H (11.5-15.5) % Neutrophils # 16.5 H (1.3-7.7) k/uL Lymphocytes # 0.3 L (1.0-4.8) k/uL APTT 46.2 H (22.0-30.0) sec Sodium 132 L (137-145) mmol/L Potassium (3.5-5.1) mmol/L BUN 63 H (9-20) mg/dL Creatinine 1.94 H (0.66-1.25) mg/dL Glucose 153 H (74-99) mg/dL POC Glucose (mg/dL) (75-99) mg/dL Calcium 7.7 L (8.4-10.2) mg/dL Phosphorus (2.5-4.5) mg/dL 07/31/20 07/31/20 07/31/20 Range/Units 05:07 06:12 06:35 WBC (3.8-10.6) k/uL RBC (4.30-5.90) m/uL Hgb (13.0-17.5) gm/dL Hct (39.0-53.0) % RDW (11.5-15.5) % Neutrophils # (1.3-7.7) k/uL Lymphocytes # (1.0-4.8) k/uL APTT (22.0-30.0) sec Sodium (137-145) mmol/L Potassium (3.5-5.1) mmol/L BUN (9-20) mg/dL Creatinine (0.66-1.25) mg/dL Glucose (74-99) mg/dL POC Glucose (mg/dL) 166 H 174 H 160 H (75-99) mg/dL Calcium (8.4-10.2) mg/dL Phosphorus (2.5-4.5) mg/dL - Imaging and Cardiology Chest x-ray: report reviewed, image reviewed Assessment and Plan Assessment: 1. Symptomatic triple-vessel coronary artery disease, status post 2 vessel CABG 2. Mild left ventricular dysfunction 3. Previuos history of stenting to his right coronary artery in 2002 4. Hypertension 5. Hyperlipidemia 6. Hypothyroid status post partial thyroidectomy 7. Previous tobacco dependence with bullous emphysema 8. Moderate chronic obstructive pulmonary disease with preoperative FEV1 of 56% of predicted value 9. Remote history of pneumonia 10. Type 2 diabetes mellitus with a preoperative hemoglobin A1c of 5.2% 11. Chronic kidney disease stage III with a baseline creatinine of 1.4-1.5 12. Family history of premature coronary artery disease with brother having had CABG at less than 50 years old 13. Postoperative acute blood loss anemia, expected outcome 14. Postoperative paroxysmal atrial fibrillation, unexpected, status post exclusion of the left atrial appendage 15. Pneumoperitoneum, unexpected 16. Acute on chronic kidney disease with hyponatremia, hyperkalemia 17. Pneumatosis of the small bowel, status post small bowel resection 18. Sputum culture positive for pseudomonas fluorescens 19. Prolonged mechanical ventilation Plan: 1. Continue low dose aspirin, low-dose beta apolinar 2. Continue IV amiodarone for afib. Discontinue IV heparin, start Lovenox 3. BiPAP management per crm architect. Bronchodilators per pulmonology management. 4. Will monitor daily labs and chest x-rays. No transfusion 5. GI/DVT prophylaxis. 6. Pain control with current medication regimen. 7. Insulin management per Dr. Polk 8. Continue TPN per RD. No tube feedings yet per Dr. Dempsey 9. Nephrology following. Avoid nephrotoxic agents. Continue IV Lasix per their recommendations 10. Strict accurate intake and output, daily weight 11. Continue IV Zosyn, day 7. No need for any other antibiotics at this time, pseudomonas covered with IV Zosyn 12. More recommendations to follow based on patient's clinical course. Time with Patient: Greater than 30
--- NOTE | 2020-07-31 11:03 | P.PN ---
Subjective Progress Note Date: 08/01/20 CHIEF COMPLAINT: Status post CABG 2 vessels HISTORY OF PRESENT ILLNESS: Patient remains in the ICU. Patient is currently on BiPAP. Patient is postop day #7 status post small bowel resection for ischemic small bowel with evidence of pneumatosis. Patient remains on lovenox and amiodarone for his atrial fibrillation. He is on TPN for nutrition support. NG tube output about 400 mL bilious fluid. Patient reports passing gas. No bowel movement reported. Afebrile. WBC 18.1 Hgb 8 creatinine 1.94 PHYSICAL EXAM: VITAL SIGNS: Reviewed. GENERAL: Well-developed in no acute distress. HEENT: No sclera icterus. Extraocular movements grossly intact. Moist buccal mucosa. Head is atraumatic, normocephalic. ABDOMEN: Soft. mildly distended. Incision dressing some shadowing noted at the distal aspect of dressing NEUROLOGIC: Patient is awake and alert answering questions ASSESSMENT: 1. Ischemic small bowel with evidence of pneumatosis status post small bowel resection 2. Acute hypoxic respiratory failure requiring mechanical ventilation 3. symptomatic triple-vessel coronary artery disease status post 2 vessel coronary bypass grafting surgery 4. Diabetes mellitus type 2 PLAN: -Continue TPN for nutrition support -Continue antibiotics -Continue supportive care -Tube feedings to start once bowel function returns -DVT prophylaxis subcu heparin and GI prophylaxis Protonix Physician Radio Producer note has been reviewed by physician. Signing provider agrees with the documented findings, assessment, and plan of care. Objective - Vital Signs Vital signs: Vital Signs Temp 98.5 F 07/31/20 08:00 Pulse 87 07/31/20 10:47 Resp 36 H 07/31/20 08:00 BP 138/80 07/31/20 08:00 Pulse Ox 93 L 07/31/20 08:00 Intake & Output 07/30/20 07/31/20 07/31/20 18:59 06:59 18:59 Intake Total 3271.268 2071.498 202 Output Total 2940 2640 370 Balance 331.268 -568.502 -168 Weight 105.5 kg 104 kg Intake: IV 2016 Amiodarone 300 mg In 25 100 Dextrose 5% in Water 250 ml @ 0.5 MG/MIN 25 mls/hr IV .Q10H [facility] Rx#: [id number] Fat Emulsion 20% 250 ml 84 In Empty Bag 1 bag @ 21 mls/hr IV [id number]@1600 [facility] Rx#:[id number] Magnesium Sulfate-D5w Pmx 200 200 1 gm In Dextrose/Water 1 100ml.bag @ 100 mls/hr IVPB Q1H [facility] Rx#: [id number] Piperacillin-Tazobactam 3 200 100 .375 gm In Sodium Chloride 0.9% 100 ml @ 25 mls/hr IVPB Q8HR [facility] Rx# :[id number] Potassium Chloride 10 meq 200 200 In Water For Injection 1 100ml.bag @ 100 mls/hr IVPB Q1H [facility] Rx#: [id number] Sodium Chloride 0.9% 1, 220 240 40 000 ml @ 20 mls/hr IV . Q24H [facility] Rx#:[id number] Sodium Ferric Gluconat- 100 Sucrose 100 mg In Sodium Chloride 0.9% 100 ml @ 100 mls/hr IVPB DAILY [facility] Rx#:[id number] Sodium Phosphate 10 mmol 100 100 In Sodium Chloride 0.9% 100 ml @ 50 mls/hr IVPB ONCE ONE Rx#:[id number] TPN 900 900 150 pressure bag 72 72 12 Intake, IV Titration 1254.268 75.498 Amount Dexmedetomidine/0.9% NaCl 44.82 (Pmx) 400 mcg In Empty Bag 1 bag @ 0.2 MCG/KG/HR 5.4 mls/hr IV .[id number] [facility] Rx#:[id number] Heparin Sod,Pork in 0.45% 94.174 NaCl 25,000 unit In 0.45 % NaCl 1 250ml.bag @ 9.14 UNITS/KG/HR 9.999 mls/hr IV .Q24H [facility] Rx#: [id number] Insulin Regular 100 unit 77.274 75.498 In Sodium Chloride 0.9% 100 ml @ Per Protocol IV .Q0M [facility] Rx#:[id number] Mvi, Adult No.4 with Vit 1038 K 10 ml Trace (Conc-1Ml/ Dose) 1 ml Sodium Chloride 2.5MEQ/ml Vial 30 meq Calcium Gluconate 1 gm Potassium Chloride 10 meq In Amino Acid 5%- D15w 1,000 ml @ 75 mls/hr IV .BY DURATION [facility] Rx#: [id number] Output: Gastric Drainage 150 100 Urine 2790 2640 270 Emesis 0 Other: Voiding Method Indwelling Catheter Indwelling Catheter Indwelling Catheter ABP, PAP, CO, CI - Last Documented Arterial Blood Pressure 117/48 Pulmonary Artery Pressure 33/14 Cardiac Output 6.7 Cardiac Index 3.1 - Labs CBC & Chem 7: 07/31/20 05:06 07/31/20 05:06 Labs: Abnormal Lab Results - Last 24 Hours (Table) 07/30/20 07/30/20 07/30/20 Range/Units 11:53 12:59 14:13 WBC (3.8-10.6) k/uL RBC (4.30-5.90) m/uL Hgb (13.0-17.5) gm/dL Hct (39.0-53.0) % RDW (11.5-15.5) % Neutrophils # (1.3-7.7) k/uL Lymphocytes # (1.0-4.8) k/uL APTT (22.0-30.0) sec Sodium (137-145) mmol/L Potassium (3.5-5.1) mmol/L BUN (9-20) mg/dL Creatinine (0.66-1.25) mg/dL Glucose (74-99) mg/dL POC Glucose (mg/dL) 151 H 173 H 163 H (75-99) mg/dL Calcium (8.4-10.2) mg/dL Phosphorus (2.5-4.5) mg/dL 07/30/20 07/30/20 07/30/20 Range/Units 14:30 15:07 16:24 WBC (3.8-10.6) k/uL RBC (4.30-5.90) m/uL Hgb (13.0-17.5) gm/dL Hct (39.0-53.0) % RDW (11.5-15.5) % Neutrophils # (1.3-7.7) k/uL Lymphocytes # (1.0-4.8) k/uL APTT 63.1 H (22.0-30.0) sec Sodium (137-145) mmol/L Potassium (3.5-5.1) mmol/L BUN (9-20) mg/dL Creatinine (0.66-1.25) mg/dL Glucose (74-99) mg/dL POC Glucose (mg/dL) 131 H 125 H (75-99) mg/dL Calcium (8.4-10.2) mg/dL Phosphorus (2.5-4.5) mg/dL 07/30/20 07/30/20 07/30/20 Range/Units 17:50 19:05 21:04 WBC (3.8-10.6) k/uL RBC (4.30-5.90) m/uL Hgb (13.0-17.5) gm/dL Hct (39.0-53.0) % RDW (11.5-15.5) % Neutrophils # (1.3-7.7) k/uL Lymphocytes # (1.0-4.8) k/uL APTT (22.0-30.0) sec Sodium (137-145) mmol/L Potassium 3.1 L (3.5-5.1) mmol/L BUN (9-20) mg/dL Creatinine (0.66-1.25) mg/dL Glucose (74-99) mg/dL POC Glucose (mg/dL) 108 H 121 H (75-99) mg/dL Calcium (8.4-10.2) mg/dL Phosphorus 2.1 L (2.5-4.5) mg/dL 07/30/20 07/31/20 07/31/20 Range/Units 23:07 00:50 03:27 WBC (3.8-10.6) k/uL RBC (4.30-5.90) m/uL Hgb (13.0-17.5) gm/dL Hct (39.0-53.0) % RDW (11.5-15.5) % Neutrophils # (1.3-7.7) k/uL Lymphocytes # (1.0-4.8) k/uL APTT (22.0-30.0) sec Sodium (137-145) mmol/L Potassium (3.5-5.1) mmol/L BUN (9-20) mg/dL Creatinine (0.66-1.25) mg/dL Glucose (74-99) mg/dL POC Glucose (mg/dL) 179 H 162 H 111 H (75-99) mg/dL Calcium (8.4-10.2) mg/dL Phosphorus (2.5-4.5) mg/dL 12/07/31/20 07/31/20 Range/Units 05:06 05:06 05:06 WBC 18.1 H (3.8-10.6) k/uL RBC 2.54 L (4.30-5.90) m/uL Hgb 8.0 L (13.0-17.5) gm/dL Hct 24.1 L (39.0-53.0) % RDW 16.3 H (11.5-15.5) % Neutrophils # 16.5 H (1.3-7.7) k/uL Lymphocytes # 0.3 L (1.0-4.8) k/uL APTT 46.2 H (22.0-30.0) sec Sodium 132 L (137-145) mmol/L Potassium (3.5-5.1) mmol/L BUN 63 H (9-20) mg/dL Creatinine 1.94 H (0.66-1.25) mg/dL Glucose 153 H (74-99) mg/dL POC Glucose (mg/dL) (75-99) mg/dL Calcium 7.7 L (8.4-10.2) mg/dL Phosphorus (2.5-4.5) mg/dL 07/31/20 07/31/20 07/31/20 Range/Units 05:07 06:12 06:35 WBC (3.8-10.6) k/uL RBC (4.30-5.90) m/uL Hgb (13.0-17.5) gm/dL Hct (39.0-53.0) % RDW (11.5-15.5) % Neutrophils # (1.3-7.7) k/uL Lymphocytes # (1.0-4.8) k/uL APTT (22.0-30.0) sec Sodium (137-145) mmol/L Potassium (3.5-5.1) mmol/L BUN (9-20) mg/dL Creatinine (0.66-1.25) mg/dL Glucose (74-99) mg/dL POC Glucose (mg/dL) 166 H 174 H 160 H (75-99) mg/dL Calcium (8.4-10.2) mg/dL Phosphorus (2.5-4.5) mg/dL
[2020-07-31] MEDS: HEPARIN SOD,PORK IN 0.45% NACL 25,000 UNIT in 0.45% NACL 1 250ML.BAG IV SCH (11:23)
--- NOTE | 2020-07-31 11:23 | P.PN ---
Subjective Patient is seen in follow-up for acute kidney injury on chronic kidney disease and hyponatremia. Sodium level stable. Renal function a little worse from diuresis. Nonoliguric. Maintain on IV Lasix. Currently on BiPAP. Maintained on TPN. Vital signs are stable. General: The patient appeared well nourished and normally developed. HEENT: Head exam is unremarkable. Neck is without jugular venous distension. LUNGS: Breath sounds decreased. HEART: Rate and Rhythm are regular. ABDOMEN: Soft no gross distention noted., EXTREMITITES: 1+ edema. Objective - Vital Signs Vital signs: Vital Signs Temp 98.5 F 07/31/20 08:00 Pulse 69 07/31/20 11:00 Resp 32 H 07/31/20 11:00 BP 138/80 07/31/20 08:00 Pulse Ox 100 07/31/20 11:00 Intake & Output 07/30/20 07/31/20 07/31/20 18:59 06:59 18:59 Intake Total 3271.268 2071.498 445 Output Total 2940 2640 1320 Balance 331.268 -568.502 -875 Weight 105.5 kg 104 kg Intake: IV 2016 Amiodarone 300 mg In 25 100 Dextrose 5% in Water 250 ml @ 0.5 MG/MIN 25 mls/hr IV .Q10H [facility] Rx#: [id number] Fat Emulsion 20% 250 ml 84 In Empty Bag 1 bag @ 21 mls/hr IV MoWeFr@1600 [facility] Rx#:[id number] Magnesium Sulfate-D5w Pmx 200 200 1 gm In Dextrose/Water 1 100ml.bag @ 100 mls/hr IVPB Q1H [facility] Rx#: [id number] Piperacillin-Tazobactam 3 200 100 .375 gm In Sodium Chloride 0.9% 100 ml @ 25 mls/hr IVPB Q8HR [facility] Rx# :[id number] Potassium Chloride 10 meq 200 200 In Water For Injection 1 100ml.bag @ 100 mls/hr IVPB Q1H [facility] Rx#: [id number] Sodium Chloride 0.9% 1, 220 240 40 000 ml @ 20 mls/hr IV . Q24H [facility] Rx#:[id number] Sodium Ferric Gluconat- 100 Sucrose 100 mg In Sodium Chloride 0.9% 100 ml @ 100 mls/hr IVPB DAILY [facility] Rx#:[id number] Sodium Phosphate 10 mmol 100 100 In Sodium Chloride 0.9% 100 ml @ 50 mls/hr IVPB ONCE ONE Rx#:[id number] TPN 900 900 375 pressure bag 72 72 30 Intake, IV Titration 1254.268 75.498 Amount Dexmedetomidine/0.9% NaCl 44.82 (Pmx) 400 mcg In Empty Bag 1 bag @ 0.2 MCG/KG/HR 5.4 mls/hr IV .[id number] [facility] Rx#:[id number] Heparin Sod,Pork in 0.45% 94.174 NaCl 25,000 unit In 0.45 % NaCl 1 250ml.bag @ 9.14 UNITS/KG/HR 9.999 mls/hr IV .Q24H [facility] Rx#: [id number] Insulin Regular 100 unit 77.274 75.498 In Sodium Chloride 0.9% 100 ml @ Per Protocol IV .Q0M [facility] Rx#:[id number] Mvi, Adult No.4 with Vit 1038 K 10 ml Trace (Conc-1Ml/ Dose) 1 ml Sodium Chloride 2.5MEQ/ml Vial 30 meq Calcium Gluconate 1 gm Potassium Chloride 10 meq In Amino Acid 5%- D15w 1,000 ml @ 75 mls/hr IV .BY DURATION [facility] Rx#: [id number] Output: Gastric Drainage 150 100 Urine 2790 2640 1220 Emesis 0 Other: Voiding Method Indwelling Catheter Indwelling Catheter Indwelling Catheter ABP, PAP, CO, CI - Last Documented Arterial Blood Pressure 112/51 Pulmonary Artery Pressure 33/14 Cardiac Output 6.7 Cardiac Index 3.1 - Labs CBC & Chem 7: 07/31/20 05:06 07/31/20 05:06 Labs: Abnormal Lab Results - Last 24 Hours (Table) 07/30/20 07/30/20 07/30/20 Range/Units 11:53 12:59 14:13 WBC (3.8-10.6) k/uL RBC (4.30-5.90) m/uL Hgb (13.0-17.5) gm/dL Hct (39.0-53.0) % RDW (11.5-15.5) % Neutrophils # (1.3-7.7) k/uL Lymphocytes # (1.0-4.8) k/uL APTT (22.0-30.0) sec Sodium (137-145) mmol/L Potassium (3.5-5.1) mmol/L BUN (9-20) mg/dL Creatinine (0.66-1.25) mg/dL Glucose (74-99) mg/dL POC Glucose (mg/dL) 151 H 173 H 163 H (75-99) mg/dL Calcium (8.4-10.2) mg/dL Phosphorus (2.5-4.5) mg/dL 07/30/20 07/30/20 07/30/20 Range/Units 14:30 15:07 16:24 WBC (3.8-10.6) k/uL RBC (4.30-5.90) m/uL Hgb (13.0-17.5) gm/dL Hct (39.0-53.0) % RDW (11.5-15.5) % Neutrophils # (1.3-7.7) k/uL Lymphocytes # (1.0-4.8) k/uL APTT 63.1 H (22.0-30.0) sec Sodium (137-145) mmol/L Potassium (3.5-5.1) mmol/L BUN (9-20) mg/dL Creatinine (0.66-1.25) mg/dL Glucose (74-99) mg/dL POC Glucose (mg/dL) 131 H 125 H (75-99) mg/dL Calcium (8.4-10.2) mg/dL Phosphorus (2.5-4.5) mg/dL 07/30/20 07/30/20 07/30/20 Range/Units 17:50 19:05 21:04 WBC (3.8-10.6) k/uL RBC (4.30-5.90) m/uL Hgb (13.0-17.5) gm/dL Hct (39.0-53.0) % RDW (11.5-15.5) % Neutrophils # (1.3-7.7) k/uL Lymphocytes # (1.0-4.8) k/uL APTT (22.0-30.0) sec Sodium (137-145) mmol/L Potassium 3.1 L (3.5-5.1) mmol/L BUN (9-20) mg/dL Creatinine (0.66-1.25) mg/dL Glucose (74-99) mg/dL POC Glucose (mg/dL) 108 H 121 H (75-99) mg/dL Calcium (8.4-10.2) mg/dL Phosphorus 2.1 L (2.5-4.5) mg/dL 07/30/20 07/31/20 07/31/20 Range/Units 23:07 00:50 03:27 WBC (3.8-10.6) k/uL RBC (4.30-5.90) m/uL Hgb (13.0-17.5) gm/dL Hct (39.0-53.0) % RDW (11.5-15.5) % Neutrophils # (1.3-7.7) k/uL Lymphocytes # (1.0-4.8) k/uL APTT (22.0-30.0) sec Sodium (137-145) mmol/L Potassium (3.5-5.1) mmol/L BUN (9-20) mg/dL Creatinine (0.66-1.25) mg/dL Glucose (74-99) mg/dL POC Glucose (mg/dL) 179 H 162 H 111 H (75-99) mg/dL Calcium (8.4-10.2) mg/dL Phosphorus (2.5-4.5) mg/dL 07/31/20 07/31/20 07/31/20 Range/Units 05:06 05:06 05:06 WBC 18.1 H (3.8-10.6) k/uL RBC 2.54 L (4.30-5.90) m/uL Hgb 8.0 L (13.0-17.5) gm/dL Hct 24.1 L (39.0-53.0) % RDW 16.3 H (11.5-15.5) % Neutrophils # 16.5 H (1.3-7.7) k/uL Lymphocytes # 0.3 L (1.0-4.8) k/uL APTT 46.2 H (22.0-30.0) sec Sodium 132 L (137-145) mmol/L Potassium (3.5-5.1) mmol/L BUN 63 H (9-20) mg/dL Creatinine 1.94 H (0.66-1.25) mg/dL Glucose 153 H (74-99) mg/dL POC Glucose (mg/dL) (75-99) mg/dL Calcium 7.7 L (8.4-10.2) mg/dL Phosphorus (2.5-4.5) mg/dL 07/31/20 07/31/20 07/31/20 Range/Units 05:07 06:12 06:35 WBC (3.8-10.6) k/uL RBC (4.30-5.90) m/uL Hgb (13.0-17.5) gm/dL Hct (39.0-53.0) % RDW (11.5-15.5) % Neutrophils # (1.3-7.7) k/uL Lymphocytes # (1.0-4.8) k/uL APTT (22.0-30.0) sec Sodium (137-145) mmol/L Potassium (3.5-5.1) mmol/L BUN (9-20) mg/dL Creatinine (0.66-1.25) mg/dL Glucose (74-99) mg/dL POC Glucose (mg/dL) 166 H 174 H 160 H (75-99) mg/dL Calcium (8.4-10.2) mg/dL Phosphorus (2.5-4.5) mg/dL Assessment and Plan Plan: Assessment: 1. Acute kidney injury secondary to hemodynamic ATN. No hydronephrosis noted on computed tomography scan. No proteinuria on UA. Creatinine 1.94 today. Nonoliguric. 2. Chronic kidney disease stage III with baseline creatinine in the range of 1.2-1.5 secondary to nephrosclerosis. UA from June 2020 was benign. 3. Coronary artery disease status post 2 vessel CABG on July 18. 4. Hypervolemic hyponatremia. 5. Bowel ischemia status post exploratory laparotomy and resection. 6. Diabetes mellitus. 7. Volume overload. 8. Hypokalemia secondary to diuresis. Replaced. Plan: Maintain IV Lasix 40 mg twice daily. Avoid nephrotoxins. Continue to monitor renal function and urine output.
[2020-07-31 11:33] LABS: Glucose,Whole Blood 104 mg/dL (75-99)
[2020-07-31] MEDS: ENOXAPARIN 100 MG/ML SYRINGE SQ SCH ×2 (11:38→22:24)
--- NOTE | 2020-07-31 12:10 | P.PN ---
Subjective Progress Note Date: 07/31/20 Principal diagnosis: Coronary artery disease, status post three-vessel bypass grafting 79-year-old white male patient with past medical history of hypertension, hyperlipidemia, moderate to severe COPD with the baseline FEV1 of 56% of predicted who came in on 07/18/2020 for elective two-vessel bypass grafting with PABLO to LAD, and SVG to the PDA. He was seen in the intensive care unit following surgery, patient was successfully weaned and extubated from mechanical ventilator and under 6 hours following his OR exit, is currently awake and alert, sitting in the chair, he is currently on 2 L of oxygen, his pulse ox is 98%, hemodynamically he stable, blood pressure is 106/51, PA pressures 35/11, CVP is 8, no fever or chills, IV fluids including the 0.9 normal saline at a ra te of 30 ML per hour, insulin is 4.5 units per hour, no vasoactive drips. Today's chest x-ray shows a pneumoperitoneum with lucency present underneath the right hemidiaphragm. He has left pleural and mediastinal chest tube, and there has been 500 mL of serosanguineous output from the left pleural and 350 mL from the mediastinal chest tube in the last 24 hours. Is having some mild discomfort under the right rib cage, but no acute distress, abdomen is distended but soft, he is hemodynamically stable, he is in sinus mechanism, no nausea vomiting or diarrhea. CT of the abdomen and pelvis is pending today's labs have been reviewed, showing white blood cell count of 11.9, hemoglobin of 9, sodium is 133, the rest of the electrolytes were within normal limits, B1 is 25 creatinine is 1.18 On 07/21/2020 patient seen in follow-up in the intensive care unit, today is postoperative day 3 status post three-vessel coronary artery bypass grafting, (patient became more short of breath, wheezy, patient has a known history of moderately severe COPD/emphysema, we started him on IV Solu-Medrol, and Pulmicort and Perforomist were added. This morning she remains on 3 L of oxygen his pulse ox is 94-95%, hemodynamically he stable, he just on plan and was seen and rated 20 ML per hour, insulin is a 2.5 units per hour, today's chest x-ray showing slight increased bibasilar atelectasis or infiltrates. He thinks the breathing treatments in the steroids have significantly helped, breathing easier, he is achieving 500-750 on his incentive spirometer, not able to bring up any sputum yet. he is currently sitting up in a chair, in no acute distress, his incisional pain is fairly well-controlled, patient had another episode of A. fib with RVR last night, he is back in sinus rhythm with a controlled rate this morning. He received a dose of Lasix this morning. Chest tubes have been discontinued. On 07/31/2020 patient seen in follow-up in the intensive care unit. He is postoperative day 12 status post three-vessel bypass grafting, and postoperative day #7 status post exploratory laparotomy and small bowel resection, he is awake and alert, he was extubated yesterday to a BiPAP support, this morning he remains on BiPAP, pressures of 10 and 5, and FiO2 of 35%, and his pulse ox is 100%, hemodynamically he stable, he is A. fib on a monitor with a rate of 98 BPM, he is currently on 9.9 normal seen at a rate of 10 ML per hour, insulin is at 2 units per hour, amiodarone at 0.5 mg per hour, heparin is at weight-based protocol, and TPN is a 75 ML per hour. Today's chest x-ray shows a stable portable chest, with bibasilar infiltrates greater on the right. She remains on Lasix at 40 mg every 12 hours, and he is negative fluid balance negative, at - 645 ML over the last 24 hours. No fever or chills, appears to be normally swollen, we will plus edema in lower extremities, his labs have been reviewed, showing white blood cell count 15.1, hemoglobin of 8, sodium of 132, potassium is 3.5, chloride is 100, his BUN is 63, and a creatinine is 1.94, calcitonin is trending down, down to 1.41 from 3.53. He remains on Zosyn or antibiotic coverage for evidence of Pseudomonas in his sputum culture. His NG tube in place to low intermittent suction, and there has been about 400 mL of bilious output in the last 24 hours, patient is passing gas but has not had any bowel movement yet. Surgical services are following. Objective - Vital Signs Vital signs: Vital Signs Temp 98.5 F 12/14/20 08:00 Pulse 69 07/31/20 11:00 Resp 32 H 07/31/20 11:00 BP 138/80 07/31/20 08:00 Pulse Ox 100 07/31/20 11:00 Intake & Output 07/30/20 07/31/20 07/31/20 18:59 06:59 18:59 Intake Total 3271.268 2071.498 674.167 Output Total 2940 2640 1320 Balance 331.268 -568.502 -645.833 Weight 105.5 kg 104 kg Intake: IV 2016 Amiodarone 300 mg In 25 100 Dextrose 5% in Water 250 ml @ 0.5 MG/MIN 25 mls/hr IV .Q10H [facility] Rx#: [id number] Fat Emulsion 20% 250 ml 84 In Empty Bag 1 bag @ 21 mls/hr IV MoWeFr@1600 [facility] Rx#:[id number] Magnesium Sulfate-D5w Pmx 200 200 1 gm In Dextrose/Water 1 100ml.bag @ 100 mls/hr IVPB Q1H [facility] Rx#: [id number] Piperacillin-Tazobactam 3 200 100 .375 gm In Sodium Chloride 0.9% 100 ml @ 25 mls/hr IVPB Q8HR [facility] Rx# :[id number] Potassium Chloride 10 meq 200 200 In Water For Injection 1 100ml.bag @ 100 mls/hr IVPB Q1H [facility] Rx#: [id number] Sodium Chloride 0.9% 1, 220 240 40 000 ml @ 20 mls/hr IV . Q24H [facility] Rx#:[id number] Sodium Ferric Gluconat- 100 Sucrose 100 mg In Sodium Chloride 0.9% 100 ml @ 100 mls/hr IVPB DAILY [facility] Rx#:[id number] Sodium Phosphate 10 mmol 100 100 In Sodium Chloride 0.9% 100 ml @ 50 mls/hr IVPB ONCE ONE Rx#:[id number] TPN 900 900 375 pressure bag 72 72 30 Intake, IV Titration 1254.268 75.498 229.167 Amount Amiodarone 300 mg In 229.167 Dextrose 5% in Water 250 ml @ 0.5 MG/MIN 25 mls/hr IV .Q10H [facility] Rx#: [id number] Dexmedetomidine/0.9% NaCl 44.82 (Pmx) 400 mcg In Empty Bag 1 bag @ 0.2 MCG/KG/HR 5.4 mls/hr IV .[id number] [facility] Rx#:[id number] Heparin Sod,Pork in 0.45% 94.174 NaCl 25,000 unit In 0.45 % NaCl 1 250ml.bag @ 9.14 UNITS/KG/HR 9.999 mls/hr IV .Q24H [facility] Rx#: [id number] Insulin Regular 100 unit 77.274 75.498 In Sodium Chloride 0.9% 100 ml @ Per Protocol IV .Q0M [facility] Rx#:[id number] Mvi, Adult No.4 with Vit 1038 K 10 ml Trace (Conc-1Ml/ Dose) 1 ml Sodium Chloride 2.5MEQ/ml Vial 30 meq Calcium Gluconate 1 gm Potassium Chloride 10 meq In Amino Acid 5%- D15w 1,000 ml @ 75 mls/hr IV .BY DURATION [facility] Rx#: [id number] Output: Gastric Drainage 150 100 Urine 2790 2640 1220 Emesis 0 Other: Voiding Method Indwelling Catheter Indwelling Catheter Indwelling Catheter ABP, PAP, CO, CI - Last Documented Arterial Blood Pressure 112/51 Pulmonary Artery Pressure 33/14 Cardiac Output 6.7 Cardiac Index 3.1 - Exam GENERAL EXAM: Alert, very pleasant, 79-year-old, white male, patient is resting in bed, he was extubated yesterday on 07/30/2022 BiPAP support on which she remains with chronic pressures of 10/5, and FiO2 of 35% HEAD: Normocephalic/atraumatic. EYES: Normal reaction of pupils, equal size. Conjunctiva pink, sclera white. NOSE: Clear with pink turbinates. THROAT: No erythema or exudates. NECK: No masses, no JVD, no thyroid enlargement, no adenopathy. CHEST: No chest wall deformity. Symmetrical expansion. Sternal incision is clean dry and intact, chest tube sites clean dry and intact LUNGS: Equal air entry with no crackles, wheeze, rhonchi or dullness. CVS: irregular rate and rhythm, normal S1 and S2, no gallops, no murmurs, no rubs ABDOMEN: Soft, nontender. No hepatosplenomegaly, normal bowel sounds, no guarding or rigidity. Abdominal incision is clean dry and intact EXTREMITIES: No clubbing, no edema, no cyanosis, 2+ pulses and upper and lower extremities. MUSCULOSKELETAL: Muscle strength and tone normal. SPINE: No scoliosis or deformity SKIN: No rashes CENTRAL NERVOUS SYSTEM: Alert and oriented -3. No focal deficits, tone is normal in all 4 extremities. - Labs CBC & Chem 7: 07/31/20 05:06 07/31/20 05:06 Labs: Abnormal Lab Results - Last 24 Hours (Table) 07/30/20 07/30/20 07/30/20 Range/Units 12:59 14:13 14:30 WBC (3.8-10.6) k/uL RBC (4.30-5.90) m/uL Hgb (13.0-17.5) gm/dL Hct (39.0-53.0) % RDW (11.5-15.5) % Neutrophils # (1.3-7.7) k/uL Lymphocytes # (1.0-4.8) k/uL APTT 63.1 H (22.0-30.0) sec Sodium (137-145) mmol/L Potassium (3.5-5.1) mmol/L BUN (9-20) mg/dL Creatinine (0.66-1.25) mg/dL Glucose (74-99) mg/dL POC Glucose (mg/dL) 173 H 163 H (75-99) mg/dL Calcium (8.4-10.2) mg/dL Phosphorus (2.5-4.5) mg/dL 07/30/20 07/30/20 07/30/20 Range/Units 15:07 16:24 17:50 WBC (3.8-10.6) k/uL RBC (4.30-5.90) m/uL Hgb (13.0-17.5) gm/dL Hct (39.0-53.0) % RDW (11.5-15.5) % Neutrophils # (1.3-7.7) k/uL Lymphocytes # (1.0-4.8) k/uL APTT (22.0-30.0) sec Sodium (137-145) mmol/L Potassium (3.5-5.1) mmol/L BUN (9-20) mg/dL Creatinine (0.66-1.25) mg/dL Glucose (74-99) mg/dL POC Glucose (mg/dL) 131 H 125 H 108 H (75-99) mg/dL Calcium (8.4-10.2) mg/dL Phosphorus (2.5-4.5) mg/dL 07/30/20 07/30/20 07/30/20 Range/Units 19:05 21:04 23:07 WBC (3.8-10.6) k/uL RBC (4.30-5.90) m/uL Hgb (13.0-17.5) gm/dL Hct (39.0-53.0) % RDW (11.5-15.5) % Neutrophils # (1.3-7.7) k/uL Lymphocytes # (1.0-4.8) k/uL APTT (22.0-30.0) sec Sodium (137-145) mmol/L Potassium 3.1 L (3.5-5.1) mmol/L BUN (9-20) mg/dL Creatinine (0.66-1.25) mg/dL Glucose (74-99) mg/dL POC Glucose (mg/dL) 121 H 179 H (75-99) mg/dL Calcium (8.4-10.2) mg/dL Phosphorus 2.1 L (2.5-4.5) mg/dL 07/31/20 07/31/20 07/31/20 Range/Units 00:50 03:27 05:06 WBC (3.8-10.6) k/uL RBC (4.30-5.90) m/uL Hgb (13.0-17.5) gm/dL Hct (39.0-53.0) % RDW (11.5-15.5) % Neutrophils # (1.3-7.7) k/uL Lymphocytes # (1.0-4.8) k/uL APTT (22.0-30.0) sec Sodium 132 L (137-145) mmol/L Potassium (3.5-5.1) mmol/L BUN 63 H (9-20) mg/dL Creatinine 1.94 H (0.66-1.25) mg/dL Glucose 153 H (74-99) mg/dL POC Glucose (mg/dL) 162 H 111 H (75-99) mg/dL Calcium 7.7 L (8.4-10.2) mg/dL Phosphorus (2.5-4.5) mg/dL 07/31/20 07/31/20 07/31/20 Range/Units 05:06 05:06 05:07 WBC 18.1 H (3.8-10.6) k/uL RBC 2.54 L (4.30-5.90) m/uL Hgb 8.0 L (13.0-17.5) gm/dL Hct 24.1 L (39.0-53.0) % RDW 16.3 H (11.5-15.5) % Neutrophils # 16.5 H (1.3-7.7) k/uL Lymphocytes # 0.3 L (1.0-4.8) k/uL APTT 46.2 H (22.0-30.0) sec Sodium (137-145) mmol/L Potassium (3.5-5.1) mmol/L BUN (9-20) mg/dL Creatinine (0.66-1.25) mg/dL Glucose (74-99) mg/dL POC Glucose (mg/dL) 166 H (75-99) mg/dL Calcium (8.4-10.2) mg/dL Phosphorus (2.5-4.5) mg/dL 07/31/20 07/31/20 07/31/20 Range/Units 06:12 06:35 11:31 WBC (3.8-10.6) k/uL RBC (4.30-5.90) m/uL Hgb (13.0-17.5) gm/dL Hct (39.0-53.0) % RDW (11.5-15.5) % Neutrophils # (1.3-7.7) k/uL Lymphocytes # (1.0-4.8) k/uL APTT (22.0-30.0) sec Sodium (137-145) mmol/L Potassium (3.5-5.1) mmol/L BUN (9-20) mg/dL Creatinine (0.66-1.25) mg/dL Glucose (74-99) mg/dL POC Glucose (mg/dL) 174 H 160 H 104 H (75-99) mg/dL Calcium (8.4-10.2) mg/dL Phosphorus (2.5-4.5) mg/dL Assessment and Plan Plan: Assessment: #1. Symptomatic coronary artery disease, status post two-vessel coronary artery bypass grafting with PABLO to the LAD, SVG to the PDA, postoperative day #12 #2. Postoperative atrial fibrillation with rapid ventricular response requiring amiodarone and metoprolol, currently on heparin for anticoagulation #3. Acute ischemic small bowel, pneumatosis, status post exploratory laparotomy and small bowel resection, on 07/24/2020, today is postoperative day #7, patient remains on TPN for nutritional support, passing flatus but no bowel movement yet #4. Acute hypoxic respiratory failure following bowel surgery, patient was extubated on 07/30/2022 BiPAP support, today on 07/31/2020 remains on BiPAP support at pressures of 10/5 and FiO2 of 35% #5. Small atelectatic/pleural effusions involving both lung bases in addition to a small to moderate bilateral pleural effusion #6. Evidence of Pseudomonas in the sputum culture, patient is covered with Zosyn for antibiotic coverage #7. History of coronary artery disease with previous stent placement #8. History of hypertension #9. History of hyperlipidemia #10. Acute kidney injury #11. COPD moderate to severe with preop FEV1 of 53% of predicted #12. 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 Chronic kidney disease stage III at baseline #14. Diabetes mellitus type 2 #15. Postoperative acute blood loss anemia, expected outcome of open heart surgery #16. Postoperative paroxysmal A. fib, patient has had 2 episodes of A. fib with RVR in the postoperative period #17. Hypothyroidism status post partial thyroidectomy Plan: Continue Lasix per nephrology recommendations, and today's chest x-ray has been reviewed showing stable findings of bibasilar densities, and pleural effusions, we will give the patient a trial off the BiPAP, wean down FiO2, encourage deep breathing and coughing, continue same antibiotic coverage, lung sounds are stable, patient is hemodynamically stable, no acute events overnight, continue TPN for nutritional support, continue GI and DVT prophylaxis, surgical services are following, patient is 71 passed gas but has not had any bowel movement yet, we'll maintain aspiration precautions, we'll continue to closely monitor in the intensive care unit I performed a history & physical examination of the patient and discussed their management with my nurse practitioner, Cheli Kendrick. I reviewed the nurse practitioner's note and agree with the documented findings and plan of care. Lung sounds are positive for diminished throughout the lung valdez. The findings and the impression was discussed with the patient. I attest to the documentation by the nurse practitioner. Time with Patient: Greater than 30
[2020-07-31 12:26] LABS: Glucose,Whole Blood 120 mg/dL (75-99)
[2020-07-31 13:52] LABS: Glucose,Whole Blood 121 mg/dL (75-99)
[2020-07-31 15:08] LABS: Glucose,Whole Blood 112 mg/dL (75-99)
[2020-07-31 15:57] LABS: Glucose,Whole Blood 130 mg/dL (75-99)
[2020-07-31] MEDS: 1: MVI, ADULT NO.4 WITH VIT K 10 ML, TRACE (CONC-1ML/DOSE) 1 ML, SODIUM CHLORIDE 2.5MEQ/ IV SCH ×6 (16:10)
--- NOTE | 2020-07-31 16:35 | P.PN ---
Subjective Progress Note Date: 07/31/20 Patient is awake and alert. He is currently on BiPAP. No acute events reported by nursing staff. Objective - Vital Signs Vital signs: Vital Signs Temp 98.2 F 07/31/20 12:00 Pulse 93 07/31/20 15:07 Resp 27 H 07/31/20 15:00 BP 138/80 07/31/20 15:00 Pulse Ox 100 07/31/20 15:00 Intake & Output 07/30/20 07/31/20 07/31/20 18:59 06:59 18:59 Intake Total 3271.268 2071.498 2033.274 Output Total 2940 2640 1670 Balance 331.268 -568.502 363.274 Weight 105.5 kg 104 kg 104 kg Intake: IV 2016 Amiodarone 300 mg In 25 100 Dextrose 5% in Water 250 ml @ 0.5 MG/MIN 25 mls/hr IV .Q10H [facility] Rx#: [id number] Fat Emulsion 20% 250 ml 84 In Empty Bag 1 bag @ 21 mls/hr IV MoWeFr@1600 [facility] Rx#:[id number] Magnesium Sulfate-D5w Pmx 200 200 1 gm In Dextrose/Water 1 100ml.bag @ 100 mls/hr IVPB Q1H [facility] Rx#: [id number] Piperacillin-Tazobactam 3 200 100 .375 gm In Sodium Chloride 0.9% 100 ml @ 25 mls/hr IVPB Q8HR [facility] Rx# :[id number] Potassium Chloride 10 meq 200 200 In Water For Injection 1 100ml.bag @ 100 mls/hr IVPB Q1H [facility] Rx#: [id number] Sodium Chloride 0.9% 1, 220 240 40 000 ml @ 20 mls/hr IV . Q24H [facility] Rx#:[id number] Sodium Ferric Gluconat- 100 Sucrose 100 mg In Sodium Chloride 0.9% 100 ml @ 100 mls/hr IVPB DAILY [facility] Rx#:[id number] Sodium Phosphate 10 mmol 100 100 In Sodium Chloride 0.9% 100 ml @ 50 mls/hr IVPB ONCE ONE Rx#:[id number] TPN 900 900 600 pressure bag 72 72 48 Intake, IV Titration 1254.268 75.498 1345.274 Amount Amiodarone 300 mg In 229.167 Dextrose 5% in Water 250 ml @ 0.5 MG/MIN 25 mls/hr IV .Q10H [facility] Rx#: [id number] Dexmedetomidine/0.9% NaCl 44.82 (Pmx) 400 mcg In Empty Bag 1 bag @ 0.2 MCG/KG/HR 5.4 mls/hr IV .[id number] [facility] Rx#:[id number] Heparin Sod,Pork in 0.45% 94.174 NaCl 25,000 unit In 0.45 % NaCl 1 250ml.bag @ 9.14 UNITS/KG/HR 9.999 mls/hr IV .Q24H [facility] Rx#: [id number] Insulin Regular 100 unit 77.274 75.498 78.107 In Sodium Chloride 0.9% 100 ml @ Per Protocol IV .Q0M [facility] Rx#:[id number] Mvi, Adult No.4 with Vit 1038 1038 K 10 ml Trace (Conc-1Ml/ Dose) 1 ml Sodium Chloride 2.5MEQ/ml Vial 30 meq Calcium Gluconate 1 gm Potassium Chloride 10 meq In Amino Acid 5%- D15w 1,000 ml @ 75 mls/hr IV .BY DURATION [facility] Rx#: [id number] Output: Gastric Drainage 150 100 Urine 2790 2640 1570 Emesis 0 Other: Voiding Method Indwelling Catheter Indwelling Catheter Indwelling Catheter ABP, PAP, CO, CI - Last Documented Arterial Blood Pressure 117/54 Pulmonary Artery Pressure 33/14 Cardiac Output 6.7 Cardiac Index 3.1 - Exam General: The patient is awake and alert, he is wearing a BiPAP Eye: there is normal conjunctiva bilaterally. Neck: The neck is supple, there is no JVD. Cardiovascular: Normal S1-S2, no S3-S4, no murmurs. Respiratory: Lungs with BiPAP sounds Gastrointestinal: Abdomen is soft, nontender Musculoskeletal: There is =1 pedal edema. Skin: Skin is warm and dry - Labs CBC & Chem 7: 07/31/20 05:06 07/31/20 05:06 Labs: Abnormal Lab Results - Last 24 Hours (Table) 07/30/20 07/30/20 07/30/20 Range/Units 17:50 19:05 21:04 WBC (3.8-10.6) k/uL RBC (4.30-5.90) m/uL Hgb (13.0-17.5) gm/dL Hct (39.0-53.0) % RDW (11.5-15.5) % Neutrophils # (1.3-7.7) k/uL Lymphocytes # (1.0-4.8) k/uL APTT (22.0-30.0) sec Sodium (137-145) mmol/L Potassium 3.1 L (3.5-5.1) mmol/L BUN (9-20) mg/dL Creatinine (0.66-1.25) mg/dL Glucose (74-99) mg/dL POC Glucose (mg/dL) 108 H 121 H (75-99) mg/dL Calcium (8.4-10.2) mg/dL Phosphorus 2.1 L (2.5-4.5) mg/dL 07/30/20 07/31/20 07/31/20 Range/Units 23:07 00:50 03:27 WBC (3.8-10.6) k/uL RBC (4.30-5.90) m/uL Hgb (13.0-17.5) gm/dL Hct (39.0-53.0) % RDW (11.5-15.5) % Neutrophils # (1.3-7.7) k/uL Lymphocytes # (1.0-4.8) k/uL APTT (22.0-30.0) sec Sodium (137-145) mmol/L Potassium (3.5-5.1) mmol/L BUN (9-20) mg/dL Creatinine (0.66-1.25) mg/dL Glucose (74-99) mg/dL POC Glucose (mg/dL) 179 H 162 H 111 H (75-99) mg/dL Calcium (8.4-10.2) mg/dL Phosphorus (2.5-4.5) mg/dL 07/31/20 07/31/20 07/31/20 Range/Units 05:06 05:06 05:06 WBC 18.1 H (3.8-10.6) k/uL RBC 2.54 L (4.30-5.90) m/uL Hgb 8.0 L (13.0-17.5) gm/dL Hct 24.1 L (39.0-53.0) % RDW 16.3 H (11.5-15.5) % Neutrophils # 16.5 H (1.3-7.7) k/uL Lymphocytes # 0.3 L (1.0-4.8) k/uL APTT 46.2 H (22.0-30.0) sec Sodium 132 L (137-145) mmol/L Potassium (3.5-5.1) mmol/L BUN 63 H (9-20) mg/dL Creatinine 1.94 H (0.66-1.25) mg/dL Glucose 153 H (74-99) mg/dL POC Glucose (mg/dL) (75-99) mg/dL Calcium 7.7 L (8.4-10.2) mg/dL Phosphorus (2.5-4.5) mg/dL 07/31/20 07/31/20 07/31/20 Range/Units 05:07 06:12 06:35 WBC (3.8-10.6) k/uL RBC (4.30-5.90) m/uL Hgb (13.0-17.5) gm/dL Hct (39.0-53.0) % RDW (11.5-15.5) % Neutrophils # (1.3-7.7) k/uL Lymphocytes # (1.0-4.8) k/uL APTT (22.0-30.0) sec Sodium (137-145) mmol/L Potassium (3.5-5.1) mmol/L BUN (9-20) mg/dL Creatinine (0.66-1.25) mg/dL Glucose (74-99) mg/dL POC Glucose (mg/dL) 166 H 174 H 160 H (75-99) mg/dL Calcium (8.4-10.2) mg/dL Phosphorus (2.5-4.5) mg/dL 07/31/20 07/31/20 07/31/20 Range/Units 11:31 12:24 13:51 WBC (3.8-10.6) k/uL RBC (4.30-5.90) m/uL Hgb (13.0-17.5) gm/dL Hct (39.0-53.0) % RDW (11.5-15.5) % Neutrophils # (1.3-7.7) k/uL Lymphocytes # (1.0-4.8) k/uL APTT (22.0-30.0) sec Sodium (137-145) mmol/L Potassium (3.5-5.1) mmol/L BUN (9-20) mg/dL Creatinine (0.66-1.25) mg/dL Glucose (74-99) mg/dL POC Glucose (mg/dL) 104 H 120 H 121 H (75-99) mg/dL Calcium (8.4-10.2) mg/dL Phosphorus (2.5-4.5) mg/dL 07/31/20 07/31/20 Range/Units 15:07 15:56 WBC (3.8-10.6) k/uL RBC (4.30-5.90) m/uL Hgb (13.0-17.5) gm/dL Hct (39.0-53.0) % RDW (11.5-15.5) % Neutrophils # (1.3-7.7) k/uL Lymphocytes # (1.0-4.8) k/uL APTT (22.0-30.0) sec Sodium (137-145) mmol/L Potassium (3.5-5.1) mmol/L BUN (9-20) mg/dL Creatinine (0.66-1.25) mg/dL Glucose (74-99) mg/dL POC Glucose (mg/dL) 112 H 130 H (75-99) mg/dL Calcium (8.4-10.2) mg/dL Phosphorus (2.5-4.5) mg/dL Assessment and Plan Assessment: 80 year old male with past medical history noted below who presented for symptomatic CAD and underwent 2v CABG with post-operative course complicated by respiratory failure secondary to COPD exacerbation, blood loss anemia, paroxysmal atrial fibrillation with RVR, and metabolic derangements. 1. CAD s/p CABG with 2v bypass, PABLO to LAD, and SVG to posterior decending coronary artery 2. Paroxysmal Atrial Fibrillation, with RVR 3. 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 Pneumatosis, Ischemic Bowel, s/p small bowel resection 5. Acute Blood Loss Anemia, post-operative, resolved 6. Pneumoperitoneum secondary to chest tubes, resolving 7. CONNOR superimposed on CKD, stage III, worsening 8. Hypertension, essential 9. Hyperlipidemia 10. Type II DM, uncontrolled 11. Hypothyroidism 12. Obesity, BMI 30.5 13. Hyponatremia and Hyperkalemia DM 2 - Currently on insulin drip - A1C from 06/21/2020 5.2, anticipate discharge home back on metformin which may be able to come off in the near future in the outpatient setting. Small Bowel Ischemia - surgery consult - s/p resection - on zosyn - MRSA nares negative A-fib with RVR On amio and eliquis On metoprolol BID Off cardizem gtt CONNOR on CKD stage III Baseline cr 1.4-1.5 Likely cardiorenal syndrome, patient received contrast earlier in the admission. Avoid nephrotoxic meds Nephrology is following Pneumoperitoneum suspect secondary to mediastinal chest tubes -Tube d/melody -Resolved. COPD with acute exacerbation - On DuoNeb schedule Coronary artery disease -Status post coronary artery bypass grafting -Cardiothoracic and cardiology following HTN - meds per CT surgery - follow BP Hypothyroidism status post partial thyroidectomy - synthroid Morbid obesity with BMI 30.5 -Outpatient structured weight loss
[2020-07-31 17:54] LABS: Glucose,Whole Blood 130 mg/dL (75-99)
[2020-07-31 20:16] LABS: Glucose,Whole Blood 109 mg/dL (75-99)
[2020-07-31] MEDS: ACETYLCYSTEINE 800 MG/4 ML VIAL INHALATION SCH (20:48)
--- NOTE | 2020-07-31 20:53 | PN ---
PROGRESS NOTE Francisco Tinoco is sitting up comfortably in bed. He had symptomatic triple-vessel coronary artery disease and underwent coronary artery bypass grafting with an internal mammary graft to the LAD and SVG to the PDA and left atrial appendage occlusion. He has postoperative atrial fibrillation, pneumoperitoneum, acute on chronic kidney injury secondary to ATN, pneumatosis with small bowel resection. He was extubated yesterday morning. He has tolerated his BiPAP well. He remains in atrial fibrillation with a controlled ventricular response. SUGGEST: Continue IV amiodarone. He is on Lovenox, low-dose aspirin, low-dose beta blockers, BiPAP and TPN. Plan is to continue current medications without any changes. MMODL / IJN: [id number] /
[2020-07-31 22:21] LABS: Glucose,Whole Blood 140 mg/dL (75-99)
[2020-08-01 00:06] LABS: Glucose,Whole Blood 180 mg/dL (75-99)
[2020-08-01 01:17] LABS: Glucose,Whole Blood 177 mg/dL (75-99)
[2020-08-01 02:18] LABS: Glucose,Whole Blood 165 mg/dL (75-99)
[2020-08-01 04:23] LABS: Glucose,Whole Blood 153 mg/dL (75-99)
[2020-08-01 05:24] LABS: Anisocytosis Slight; Basophils # (A) 0.1 k/uL (0-0.2); Basophils % (A) 1 %; Eosinophils % (A) 0 %; HCT 23.6 % (39.0-53.0); HGB 7.9 gm/dL (13.0-17.5); Hypochromasia Moderate; Lymphocytes # (A) 0.3 k/uL (1.0-4.8); Lymphocytes % (A) 2 %; MCH 32.1 pg (25.0-35.0); MCHC 33.4 g/dL (31.0-37.0); MCV 96.1 fL (80.0-100.0); Macrocytosis Slight; Mean Platelet Volume 7.4; Monocytes # (A) 0.7 k/uL (0-1.0); Monocytes % (A) 4 %; Neutrophils # (A) 16.4 k/uL (1.3-7.7); Neutrophils % (A) 92 %; Platelet Count 261 k/uL (150-450); Poikilocytosis Slight; RBC 2.45 m/uL (4.30-5.90); RDW 16.4 % (11.5-15.5); WBC 17.7 k/uL (3.8-10.6)
[2020-08-01 05:39] LABS: Calcium 7.8 mg/dL (8.4-10.2); Magnesium 1.7 mg/dL (1.6-2.3); Phosphorus 2.9 mg/dL (2.5-4.5); Potassium 3.3 mmol/L (3.5-5.1)
[2020-08-01 06:20] LABS: Glucose,Whole Blood 117 mg/dL (75-99)
[2020-08-01 07:11] LABS: Glucose,Whole Blood 122 mg/dL (75-99)
[2020-08-01] MEDS: ACETYLCYSTEINE 800 MG/4 ML VIAL INHALATION SCH ×4 (07:21→19:52)
[2020-08-01] MEDS: IPRATROPIUM-ALBUTEROL 3 ML NEB INHALATION SCH ×4 (07:21→19:52)
[2020-08-01] MEDS: BUDESONIDE 1 MG/2 ML NEBU INHALATION SCH ×2 (07:21→19:52)
[2020-08-01] MEDS: FORMOTEROL FUMARATE 20 MCG/2 ML NEBU INHALATION SCH ×2 (07:21→19:53)
[2020-08-01 08:31] LABS: Glucose,Whole Blood 136 mg/dL (75-99)
[2020-08-01] MEDS: PIPERACILLIN-TAZOBACTAM 3.375 GM in SODIUM CHLORIDE 0.9% 100 ML IVPB SCH ×2 (08:43→18:08)
[2020-08-01] MEDS: POTASSIUM CHLORIDE 20 MEQ in WATER FOR INJECTION 1 100ML.BAG IVPB SCH ×2 (08:45→10:30)
[2020-08-01] MEDS: PANTOPRAZOLE 40 MG/10 ML VIAL IVP SCH ×2 (08:45→21:25)
[2020-08-01] MEDS: ENOXAPARIN 100 MG/ML SYRINGE SQ SCH ×2 (08:48→21:25)
[2020-08-01] MEDS: ASPIRIN 81 MG PO SCH (08:59)
[2020-08-01] MEDS: FUROSEMIDE 10 MG/ML 4 ML VIAL IV SCH ×2 (08:59→21:25)
[2020-08-01] MEDS: LEVOTHYROXINE IVP 100 MCG/5 ML VIAL IV SCH (08:59)
[2020-08-01] MEDS: METOPROLOL TARTRATE 12.5 MG TAB NG-TUBE SCH ×2 (08:59→21:25)
[2020-08-01] MEDS: AMIODARONE 300 MG in DEXTROSE 5% IN WATER 250 ML IV SCH ×4 (09:22→20:09)
--- NOTE | 2020-08-01 09:26 | P.PN ---
Subjective Progress Note Date: 08/01/20 Principal diagnosis: Symptomatic triple-vessel coronary artery disease, mild left ventricular dysfunction. Previuos medical history of stenting to his right coronary artery in 2002, hypertension, hyperlipidemia, hypothyroid status post partial thyroidectomy, previous tobacco dependence quit smoking 20 years ago, moderate chronic obstructive pulmonary disease with preoperative FEV1 of 56% of predicted value, bullous emphysema, remote history of pneumonia, type 2 diabetes mellitus with a preoperative hemoglobin A1c of 5.2%, chronic kidney disease stage III with a baseline creatinine of 1.4-1.5, family history of premature coronary artery disease with brother having had CABG at less than 50 years old. POD #14 double coronary artery bypass grafting using the left internal mammary artery to left anterior descending coronary artery, reverse greater saphenous vein graft from the aorta to the posterior descending coronary artery. Exclusion of the left atrial appendage using a 35 mm Atriclip, endoscopic harvesting of the right greater saphenous vein from the groin to above the ankle level, graft flow measurement using the Osper system, intraoperative transesophageal echocardiogram and epi-aortic scanning. Postoperative acute blood loss anemia, expected outcome from hemodilution and cardiopulmonary bypass. Postoperative paroxysmal atrial fibrillation, unexpected but common outcome after open heart surgery. Pneumoperitoneum, unexpected Acute on chronic kidney disease secondary to ATN Pneumatosis of the small bowel POD #8 small bowel resection Prolonged mechanical ventilation, unexpected Patient's currently laying in the intensive care unit currently on high flow nasal cannula. Currently in normal sinus rhythm, hemodynamically stable on no pressors, continues on IV amiodarone, IV heparin switch to subcu Lovenox yesterday. NG tube in place to low intermittent suction with minimal green fluid, hypoactive bowel sounds x 4 quadrants, patient admits to passing flatus, asking for water. Abdomen is soft, remains on TPN. Currently appears comfort able, denies pain. Remains on IV Zosyn, Day 8. No other new concerns Objective - Vital Signs Vital signs: Vital Signs Temp 98.6 F 08/01/20 04:00 Pulse 82 08/01/20 07:54 Resp 26 H 08/01/20 07:00 BP 138/80 08/01/20 07:00 Pulse Ox 100 08/01/20 07:00 Intake & Output 07/31/20 08/01/20 08/01/20 18:59 06:59 18:59 Intake Total 2221.548 189.825 52.348 Output Total 2245 2850 100 Balance -23.452 -2660.175 -47.652 Weight 104 kg 112.1 kg Intake: IV 852 168 13 Piperacillin-Tazobactam 3 100 .375 gm In Sodium Chloride 0.9% 100 ml @ 25 mls/hr IVPB Q8HR [facility] Rx# :[id number] Sodium Chloride 0.9% 1, 80 120 10 000 ml @ 20 mls/hr IV . Q24H [facility] Rx#:[id number] TPN 600 pressure bag 72 48 3 Intake, IV Titration 1369.548 21.825 39.348 Amount Amiodarone 300 mg In 229.167 Dextrose 5% in Water 250 ml @ 0.5 MG/MIN 25 mls/hr IV .Q10H [facility] Rx#: [id number] Insulin Regular 100 unit 102.381 21.825 39.348 In Sodium Chloride 0.9% 100 ml @ Per Protocol IV .Q0M [facility] Rx#:[id number] Mvi, Adult No.4 with Vit 1038 K 10 ml Trace (Conc-1Ml/ Dose) 1 ml Sodium Chloride 2.5MEQ/ml Vial 30 meq Calcium Gluconate 1 gm Potassium Chloride 10 meq In Amino Acid 5%- D15w 1,000 ml @ 75 mls/hr IV .BY DURATION [facility] Rx#: [id number] Output: Gastric Drainage 100 300 Urine 2145 2550 100 Other: Voiding Method Indwelling Catheter Indwelling Catheter ABP, PAP, CO, CI - Last Documented Arterial Blood Pressure 123/50 Pulmonary Artery Pressure 33/14 Cardiac Output 6.7 Cardiac Index 3.1 - Constitutional General appearance: Present: cooperative, no acute distress, obese - Respiratory Details: Lungs sounds diminished bilaterally with coarse breath sounds in the bases. Respirations even, non-labored on 6 L nasal cannula with oxygen saturation 100%. Strong cough - Cardiovascular Details: S1, S2 present. Regular rate and rhythm, sinus rhythm on telemetry with rate in the 80s. Sternum stable. Palpable peripheral pulses bilaterally. Generalized edema present, less than yesterday. Heart hugger, antiembolism stockings, SCDs present. Right internal jugular triple-lumen central line, right femoral arterial line present. - Gastrointestinal Gastrointestinal Comment(s): Abdomen soft, nontender, nondistended. Hypoactive bowel sounds x 4 quadrants. NG tube present to low intermittent suction with 300 mL green drainage in 24 hours - Genitourinary Genitourinary Comment(s): Villafana catheter present draining clear, yellow urine. Output 200-250 mL/h overnight, 4695 mL in the last 24 hours - Integumentary Integumentary Comment(s): Skin is warm and dry with evidence of good perfusion. Anterior chest incision well approximated and covered with dry intact dressing. Right lower extremity EVH site well approximated. Mid abdominal incision well approximated with eliecer and covered with dry intact dressing. The patient has shear injury approximately 5 x 7 cm beneath his right shoulder, Silvadene cream applied, dry dressing in place - Neurologic Neurologic: Present: CNII-XII intact - Musculoskeletal Musculoskeletal: Present: generalized weakness, strength equal bilaterally - Psychiatric Psychiatric: Present: A&O x's 3, appropriate affect - Allied health notes Allied health notes reviewed: nursing - Labs CBC & Chem 7: 08/01/20 04:27 08/01/20 04:27 Labs: Abnormal Lab Results - Last 24 Hours (Table) 07/31/20 07/31/20 07/31/20 Range/Units 11:31 12:24 13:51 WBC (3.8-10.6) k/uL RBC (4.30-5.90) m/uL Hgb (13.0-17.5) gm/dL Hct (39.0-53.0) % RDW (11.5-15.5) % Neutrophils # (1.3-7.7) k/uL Lymphocytes # (1.0-4.8) k/uL Sodium (137-145) mmol/L Potassium (3.5-5.1) mmol/L BUN (9-20) mg/dL Creatinine (0.66-1.25) mg/dL Glucose (74-99) mg/dL POC Glucose (mg/dL) 104 H 120 H 121 H (75-99) mg/dL Calcium (8.4-10.2) mg/dL 07/31/20 07/31/20 07/31/20 Range/Units 15:07 15:56 17:53 WBC (3.8-10.6) k/uL RBC (4.30-5.90) m/uL Hgb (13.0-17.5) gm/dL Hct (39.0-53.0) % RDW (11.5-15.5) % Neutrophils # (1.3-7.7) k/uL Lymphocytes # (1.0-4.8) k/uL Sodium (137-145) mmol/L Potassium (3.5-5.1) mmol/L BUN (9-20) mg/dL Creatinine (0.66-1.25) mg/dL Glucose (74-99) mg/dL POC Glucose (mg/dL) 112 H 130 H 130 H (75-99) mg/dL Calcium (8.4-10.2) mg/dL 07/31/20 07/31/20 08/01/20 Range/Units 20:13 22:13 00:04 WBC (3.8-10.6) k/uL RBC (4.30-5.90) m/uL Hgb (13.0-17.5) gm/dL Hct (39.0-53.0) % RDW (11.5-15.5) % Neutrophils # (1.3-7.7) k/uL Lymphocytes # (1.0-4.8) k/uL Sodium (137-145) mmol/L Potassium (3.5-5.1) mmol/L BUN (9-20) mg/dL Creatinine (0.66-1.25) mg/dL Glucose (74-99) mg/dL POC Glucose (mg/dL) 109 H 140 H 180 H (75-99) mg/dL Calcium (8.4-10.2) mg/dL 08/01/20 08/01/20 08/01/20 Range/Units 01:16 02:16 04:21 WBC (3.8-10.6) k/uL RBC (4.30-5.90) m/uL Hgb (13.0-17.5) gm/dL Hct (39.0-53.0) % RDW (11.5-15.5) % Neutrophils # (1.3-7.7) k/uL Lymphocytes # (1.0-4.8) k/uL Sodium (137-145) mmol/L Potassium (3.5-5.1) mmol/L BUN (9-20) mg/dL Creatinine (0.66-1.25) mg/dL Glucose (74-99) mg/dL POC Glucose (mg/dL) 177 H 165 H 153 H (75-99) mg/dL Calcium (8.4-10.2) mg/dL 08/01/20 08/01/20 08/01/20 Range/Units 04:27 04:27 06:19 WBC 17.7 H (3.8-10.6) k/uL RBC 2.45 L (4.30-5.90) m/uL Hgb 7.9 L (13.0-17.5) gm/dL Hct 23.6 L (39.0-53.0) % RDW 16.4 H (11.5-15.5) % Neutrophils # 16.4 H (1.3-7.7) k/uL Lymphocytes # 0.3 L (1.0-4.8) k/uL Sodium 133 L (137-145) mmol/L Potassium 3.3 L (3.5-5.1) mmol/L BUN 69 H (9-20) mg/dL Creatinine 1.89 H (0.66-1.25) mg/dL Glucose 133 H (74-99) mg/dL POC Glucose (mg/dL) 117 H (75-99) mg/dL Calcium 7.8 L (8.4-10.2) mg/dL 08/01/20 08/01/20 Range/Units 07:10 08:24 WBC (3.8-10.6) k/uL RBC (4.30-5.90) m/uL Hgb (13.0-17.5) gm/dL Hct (39.0-53.0) % RDW (11.5-15.5) % Neutrophils # (1.3-7.7) k/uL Lymphocytes # (1.0-4.8) k/uL Sodium (137-145) mmol/L Potassium (3.5-5.1) mmol/L BUN (9-20) mg/dL Creatinine (0.66-1.25) mg/dL Glucose (74-99) mg/dL POC Glucose (mg/dL) 122 H 136 H (75-99) mg/dL Calcium (8.4-10.2) mg/dL - Imaging and Cardiology Chest x-ray: image reviewed Assessment and Plan Assessment: 1. Symptomatic triple-vessel coronary artery disease, status post 2 vessel CABG 2. Mild left ventricular dysfunction 3. Previuos history of stenting to his right coronary artery in 2002 4. Hypertension 5. Hyperlipidemia 6. Hypothyroid status post partial thyroidectomy 7. Previous tobacco dependence with bullous emphysema 8. Moderate chronic obstructive pulmonary disease with preoperative FEV1 of 56% of predicted value 9. Remote history of pneumonia 10. Type 2 diabetes mellitus with a preoperative hemoglobin A1c of 5.2% 11. Chronic kidney disease stage III with a baseline creatinine of 1.4-1.5 12. Family history of premature coronary artery disease with brother having had CABG at less than 50 years old 13. Postoperative acute blood loss anemia, expected outcome 14. Postoperative paroxysmal atrial fibrillation, unexpected, status post exclusion of the left atrial appendage 15. Pneumoperitoneum, unexpected 16. Acute on chronic kidney disease with hyponatremia, hyperkalemia 17. Pneumatosis of the small bowel, status post small bowel resection 18. Sputum culture positive for pseudomonas fluorescens 19. Prolonged mechanical ventilation Plan: 1. Continue low dose aspirin, low-dose beta apolinar 2. Continue IV amiodarone for afib, will transition to oral today. Continue Lovenox 3. Wean O2 as tolerated. Encourage incentive spirometry use. Bronchodilators, inhaled steroids per pulmonology management. 4. Will monitor daily labs and chest x-rays. No transfusion 5. GI/DVT prophylaxis. 6. Pain control with current medication regimen. 7. Insulin management per Dr. Polk 8. Continue TPN per RD. Will start tube feedings today per Dr. Dempsey 9. Nephrology following. Avoid nephrotoxic agents. Continue IV Lasix per their recommendations 10. Strict accurate intake and output, daily weight 11. Continue IV Zosyn, day 8. No need for any other antibiotics at this time, pseudomonas covered with IV Zosyn 12. More recommendations to follow based on patient's clinical course. Time with Patient: Greater than 30
--- NOTE | 2020-08-01 09:27 | XR ---
EXAMINATION TYPE: XR chest 1V portable DATE OF EXAM: 08/01/2020 COMPARISON: 07/31/2020 INDICATION: Respiratory failure TECHNIQUE: Single frontal view of the chest is obtained. FINDINGS: The heart size is mildly prominent. The pulmonary vasculature is normal. Bibasilar infiltrates are present. There is silhouetting the diaphragms. Infiltrates may be worsening from comparison. Nasogastric tube transverses the [id number]. Right central venous catheter tip is in the proximal right atrium. Sternotomy wires are present. IMPRESSION: 1. Worsening bibasilar infiltrates. Small effusions may be present. Continued Follow-up is recommende d.
--- NOTE | 2020-08-01 09:32 | P.PN ---
Subjective Patient is seen in follow-up for acute kidney injury on chronic kidney disease and hyponatremia. Sodium level better. Renal function stable. Nonoliguric. Maintained on IV Lasix. Receiving TPN. On 5 L nasal cannula. Vital signs are stable. General: The patient appeared well nourished and normally developed. HEENT: Head exam is unremarkable. Neck is without jugular venous distension. LUNGS: Breath sounds decreased. HEART: Rate and Rhythm are regular. ABDOMEN: Soft no gross distention noted. EXTREMITITES: 1+ edema. Objective - Vital Signs Vital signs: Vital Signs Temp 98.6 F 08/01/20 04:00 Pulse 82 08/01/20 07:54 Resp 26 H 08/01/20 07:00 BP 138/80 08/01/20 07:00 Pulse Ox 100 08/01/20 07:00 Intake & Output 07/31/20 08/01/20 08/01/20 18:59 06:59 18:59 Intake Total 2221.548 189.825 302.348 Output Total 2245 2850 100 Balance -23.452 -2660.175 202.348 Weight 104 kg 112.1 kg Intake: IV 852 168 13 Piperacillin-Tazobactam 3 100 .375 gm In Sodium Chloride 0.9% 100 ml @ 25 mls/hr IVPB Q8HR [facility] Rx# :[id number] Sodium Chloride 0.9% 1, 80 120 10 000 ml @ 20 mls/hr IV . Q24H [facility] Rx#:[id number] TPN 600 pressure bag 72 48 3 Intake, IV Titration 1369.548 21.825 289.348 Amount Amiodarone 300 mg In 229.167 Dextrose 5% in Water 250 ml @ 0.5 MG/MIN 25 mls/hr IV .Q10H [facility] Rx#: [id number] Amiodarone 300 mg In 250 Dextrose 5% in Water 250 ml @ 0.5 MG/MIN 25 mls/hr IV .Q10H [facility] Rx#: [id number] Insulin Regular 100 unit 102.381 21.825 39.348 In Sodium Chloride 0.9% 100 ml @ Per Protocol IV .Q0M [facility] Rx#:[id number] Mvi, Adult No.4 with Vit 1038 K 10 ml Trace (Conc-1Ml/ Dose) 1 ml Sodium Chloride 2.5MEQ/ml Vial 30 meq Calcium Gluconate 1 gm Potassium Chloride 10 meq In Amino Acid 5%- D15w 1,000 ml @ 75 mls/hr IV .BY DURATION [facility] Rx#: [id number] Output: Gastric Drainage 100 300 Urine 2145 2550 100 Other: Voiding Method Indwelling Catheter Indwelling Catheter ABP, PAP, CO, CI - Last Documented Arterial Blood Pressure 123/50 Pulmonary Artery Pressure 33/14 Cardiac Output 6.7 Cardiac Index 3.1 - Labs CBC & Chem 7: 08/01/20 04:27 08/01/20 04:27 Labs: Abnormal Lab Results - Last 24 Hours (Table) 07/31/20 07/31/20 07/31/20 Range/Units 11:31 12:24 13:51 WBC (3.8-10.6) k/uL RBC (4.30-5.90) m/uL Hgb (13.0-17.5) gm/dL Hct (39.0-53.0) % RDW (11.5-15.5) % Neutrophils # (1.3-7.7) k/uL Lymphocytes # (1.0-4.8) k/uL Sodium (137-145) mmol/L Potassium (3.5-5.1) mmol/L BUN (9-20) mg/dL Creatinine (0.66-1.25) mg/dL Glucose (74-99) mg/dL POC Glucose (mg/dL) 104 H 120 H 121 H (75-99) mg/dL Calcium (8.4-10.2) mg/dL 07/31/20 07/31/20 07/31/20 Range/Units 15:07 15:56 17:53 WBC (3.8-10.6) k/uL RBC (4.30-5.90) m/uL Hgb (13.0-17.5) gm/dL Hct (39.0-53.0) % RDW (11.5-15.5) % Neutrophils # (1.3-7.7) k/uL Lymphocytes # (1.0-4.8) k/uL Sodium (137-145) mmol/L Potassium (3.5-5.1) mmol/L BUN (9-20) mg/dL Creatinine (0.66-1.25) mg/dL Glucose (74-99) mg/dL POC Glucose (mg/dL) 112 H 130 H 130 H (75-99) mg/dL Calcium (8.4-10.2) mg/dL 07/31/20 07/31/20 08/01/20 Range/Units 20:13 22:13 00:04 WBC (3.8-10.6) k/uL RBC (4.30-5.90) m/uL Hgb (13.0-17.5) gm/dL Hct (39.0-53.0) % RDW (11.5-15.5) % Neutrophils # (1.3-7.7) k/uL Lymphocytes # (1.0-4.8) k/uL Sodium (137-145) mmol/L Potassium (3.5-5.1) mmol/L BUN (9-20) mg/dL Creatinine (0.66-1.25) mg/dL Glucose (74-99) mg/dL POC Glucose (mg/dL) 109 H 140 H 180 H (75-99) mg/dL Calcium (8.4-10.2) mg/dL 08/01/20 08/01/20 08/01/20 Range/Units 01:16 02:16 04:21 WBC (3.8-10.6) k/uL RBC (4.30-5.90) m/uL Hgb (13.0-17.5) gm/dL Hct (39.0-53.0) % RDW (11.5-15.5) % Neutrophils # (1.3-7.7) k/uL Lymphocytes # (1.0-4.8) k/uL Sodium (137-145) mmol/L Potassium (3.5-5.1) mmol/L BUN (9-20) mg/dL Creatinine (0.66-1.25) mg/dL Glucose (74-99) mg/dL POC Glucose (mg/dL) 177 H 165 H 153 H (75-99) mg/dL Calcium (8.4-10.2) mg/dL 08/01/20 08/01/20 08/01/20 Range/Units 04:27 04:27 06:19 WBC 17.7 H (3.8-10.6) k/uL RBC 2.45 L (4.30-5.90) m/uL Hgb 7.9 L (13.0-17.5) gm/dL Hct 23.6 L (39.0-53.0) % RDW 16.4 H (11.5-15.5) % Neutrophils # 16.4 H (1.3-7.7) k/uL Lymphocytes # 0.3 L (1.0-4.8) k/uL Sodium 133 L (137-145) mmol/L Potassium 3.3 L (3.5-5.1) mmol/L BUN 69 H (9-20) mg/dL Creatinine 1.89 H (0.66-1.25) mg/dL Glucose 133 H (74-99) mg/dL POC Glucose (mg/dL) 117 H (75-99) mg/dL Calcium 7.8 L (8.4-10.2) mg/dL 08/01/20 08/01/20 Range/Units 07:10 08:24 WBC (3.8-10.6) k/uL RBC (4.30-5.90) m/uL Hgb (13.0-17.5) gm/dL Hct (39.0-53.0) % RDW (11.5-15.5) % Neutrophils # (1.3-7.7) k/uL Lymphocytes # (1.0-4.8) k/uL Sodium (137-145) mmol/L Potassium (3.5-5.1) mmol/L BUN (9-20) mg/dL Creatinine (0.66-1.25) mg/dL Glucose (74-99) mg/dL POC Glucose (mg/dL) 122 H 136 H (75-99) mg/dL Calcium (8.4-10.2) mg/dL Assessment and Plan Plan: Assessment: 1. Acute kidney injury secondary to hemodynamic ATN. No hydronephrosis noted on computed tomography scan. No proteinuria on UA. Creatinine stable at 1.89 today. Nonoliguric. 2. Chronic kidney disease stage III with baseline creatinine in the range of 1.2-1.5 secondary to nephrosclerosis. UA from June 2020 was benign. 3. Coronary artery disease status post 2 vessel CABG on July 18. 4. Hypervolemic hyponatremia. 5. Bowel ischemia status post exploratory laparotomy and resection. 6. Diabetes mellitus. 7. Volume overload. Improving with diuresis. 8. Hypokalemia secondary to diuresis. Replaced. 9. A. fib maintained on amiodarone drip. 10. Anemia of chronic kidney disease and post-cabg. Plan: Maintain IV Lasix 40 mg twice daily. Avoid nephrotoxins. Continue to monitor renal function and urine output. Potassium being replaced. Check iron studies.
[2020-08-01 09:39] LABS: Glucose,Whole Blood 126 mg/dL (75-99)
[2020-08-01 10:14] LABS: Albumin 2.4 g/dL (3.5-5.0)
--- NOTE | 2020-08-01 10:43 | P.PN ---
Subjective Progress Note Date: 08/01/20 Patient is awake and alert. He denies any pain. He reported passing some gas earlier. No acute events reported by nursing staff overnight. Objective - Vital Signs Vital signs: Vital Signs Temp 98.6 F 08/01/20 04:00 Pulse 82 08/01/20 07:54 Resp 26 H 08/01/20 07:00 BP 138/80 08/01/20 07:00 Pulse Ox 100 08/01/20 07:00 Intake & Output 07/31/20 08/01/20 08/01/20 18:59 06:59 18:59 Intake Total 2221.548 189.825 308.484 Output Total 2245 2850 100 Balance -23.452 -2660.175 208.484 Weight 104 kg 112.1 kg Intake: IV 852 168 13 Piperacillin-Tazobactam 3 100 .375 gm In Sodium Chloride 0.9% 100 ml @ 25 mls/hr IVPB Q8HR [facility] Rx# :[id number] Sodium Chloride 0.9% 1, 80 120 10 000 ml @ 20 mls/hr IV . Q24H [facility] Rx#:[id number] TPN 600 pressure bag 72 48 3 Intake, IV Titration 1369.548 21.825 295.484 Amount Amiodarone 300 mg In 229.167 Dextrose 5% in Water 250 ml @ 0.5 MG/MIN 25 mls/hr IV .Q10H [facility] Rx#: [id number] Amiodarone 300 mg In 250 Dextrose 5% in Water 250 ml @ 0.5 MG/MIN 25 mls/hr IV .Q10H [facility] Rx#: [id number] Insulin Regular 100 unit 102.381 21.825 45.484 In Sodium Chloride 0.9% 100 ml @ Per Protocol IV .Q0M [facility] Rx#:[id number] Mvi, Adult No.4 with Vit 1038 K 10 ml Trace (Conc-1Ml/ Dose) 1 ml Sodium Chloride 2.5MEQ/ml Vial 30 meq Calcium Gluconate 1 gm Potassium Chloride 10 meq In Amino Acid 5%- D15w 1,000 ml @ 75 mls/hr IV .BY DURATION [facility] Rx#: [id number] Output: Gastric Drainage 100 300 Urine 2145 2550 100 Other: Voiding Method Indwelling Catheter Indwelling Catheter ABP, PAP, CO, CI - Last Documented Arterial Blood Pressure 123/50 Pulmonary Artery Pressure 33/14 Cardiac Output 6.7 Cardiac Index 3.1 - Exam General: The patient is awake and alert, Eye: there is normal conjunctiva bilaterally. Neck: The neck is supple, there is no JVD. Cardiovascular: Normal S1-S2, no S3-S4, no murmurs. Respiratory: Lungs with scattered rhonchi Gastrointestinal: Abdomen is soft, nontender Musculoskeletal: There is +1 pedal edema. Skin: Skin is warm and dry - Labs CBC & Chem 7: 08/01/20 04:27 08/01/20 04:27 Labs: Abnormal Lab Results - Last 24 Hours (Table) 07/31/20 07/31/20 07/31/20 Range/Units 11:31 12:24 13:51 WBC (3.8-10.6) k/uL RBC (4.30-5.90) m/uL Hgb (13.0-17.5) gm/dL Hct (39.0-53.0) % RDW (11.5-15.5) % Neutrophils # (1.3-7.7) k/uL Lymphocytes # (1.0-4.8) k/uL Sodium (137-145) mmol/L Potassium (3.5-5.1) mmol/L BUN (9-20) mg/dL Creatinine (0.66-1.25) mg/dL Glucose (74-99) mg/dL POC Glucose (mg/dL) 104 H 120 H 121 H (75-99) mg/dL Calcium (8.4-10.2) mg/dL Albumin (3.5-5.0) g/dL 07/31/20 07/31/20 07/31/20 Range/Units 15:07 15:56 17:53 WBC (3.8-10.6) k/uL RBC (4.30-5.90) m/uL Hgb (13.0-17.5) gm/dL Hct (39.0-53.0) % RDW (11.5-15.5) % Neutrophils # (1.3-7.7) k/uL Lymphocytes # (1.0-4.8) k/uL Sodium (137-145) mmol/L Potassium (3.5-5.1) mmol/L BUN (9-20) mg/dL Creatinine (0.66-1.25) mg/dL Glucose (74-99) mg/dL POC Glucose (mg/dL) 112 H 130 H 130 H (75-99) mg/dL Calcium (8.4-10.2) mg/dL Albumin (3.5-5.0) g/dL 07/31/20 07/31/20 08/01/20 Range/Units 20:13 22:13 00:04 WBC (3.8-10.6) k/uL RBC (4.30-5.90) m/uL Hgb (13.0-17.5) gm/dL Hct (39.0-53.0) % RDW (11.5-15.5) % Neutrophils # (1.3-7.7) k/uL Lymphocytes # (1.0-4.8) k/uL Sodium (137-145) mmol/L Potassium (3.5-5.1) mmol/L BUN (9-20) mg/dL Creatinine (0.66-1.25) mg/dL Glucose (74-99) mg/dL POC Glucose (mg/dL) 109 H 140 H 180 H (75-99) mg/dL Calcium (8.4-10.2) mg/dL Albumin (3.5-5.0) g/dL 08/01/20 08/01/20 08/01/20 Range/Units 01:16 02:16 04:21 WBC (3.8-10.6) k/uL RBC (4.30-5.90) m/uL Hgb (13.0-17.5) gm/dL Hct (39.0-53.0) % RDW (11.5-15.5) % Neutrophils # (1.3-7.7) k/uL Lymphocytes # (1.0-4.8) k/uL Sodium (137-145) mmol/L Potassium (3.5-5.1) mmol/L BUN (9-20) mg/dL Creatinine (0.66-1.25) mg/dL Glucose (74-99) mg/dL POC Glucose (mg/dL) 177 H 165 H 153 H (75-99) mg/dL Calcium (8.4-10.2) mg/dL Albumin (3.5-5.0) g/dL 08/01/20 08/01/20 08/01/20 Range/Units 04:27 04:27 06:19 WBC 17.7 H (3.8-10.6) k/uL RBC 2.45 L (4.30-5.90) m/uL Hgb 7.9 L (13.0-17.5) gm/dL Hct 23.6 L (39.0-53.0) % RDW 16.4 H (11.5-15.5) % Neutrophils # 16.4 H (1.3-7.7) k/uL Lymphocytes # 0.3 L (1.0-4.8) k/uL Sodium 133 L (137-145) mmol/L Potassium 3.3 L (3.5-5.1) mmol/L BUN 69 H (9-20) mg/dL Creatinine 1.89 H (0.66-1.25) mg/dL Glucose 133 H (74-99) mg/dL POC Glucose (mg/dL) 117 H (75-99) mg/dL Calcium 7.8 L (8.4-10.2) mg/dL Albumin (3.5-5.0) g/dL 08/01/20 08/01/20 08/01/20 Range/Units 07:10 08:24 09:35 WBC (3.8-10.6) k/uL RBC (4.30-5.90) m/uL Hgb (13.0-17.5) gm/dL Hct (39.0-53.0) % RDW (11.5-15.5) % Neutrophils # (1.3-7.7) k/uL Lymphocytes # (1.0-4.8) k/uL Sodium (137-145) mmol/L Potassium (3.5-5.1) mmol/L BUN (9-20) mg/dL Creatinine (0.66-1.25) mg/dL Glucose (74-99) mg/dL POC Glucose (mg/dL) 122 H 136 H (75-99) mg/dL Calcium (8.4-10.2) mg/dL Albumin 2.4 L (3.5-5.0) g/dL 08/01/20 Range/Units 09:37 WBC (3.8-10.6) k/uL RBC (4.30-5.90) m/uL Hgb (13.0-17.5) gm/dL Hct (39.0-53.0) % RDW (11.5-15.5) % Neutrophils # (1.3-7.7) k/uL Lymphocytes # (1.0-4.8) k/uL Sodium (137-145) mmol/L Potassium (3.5-5.1) mmol/L BUN (9-20) mg/dL Creatinine (0.66-1.25) mg/dL Glucose (74-99) mg/dL POC Glucose (mg/dL) 126 H (75-99) mg/dL Calcium (8.4-10.2) mg/dL Albumin (3.5-5.0) g/dL Assessment and Plan Assessment: 80 year old male with past medical history noted below who presented for symptomatic CAD and underwent 2v CABG with post-operative course complicated by respiratory failure secondary to COPD exacerbation, blood loss anemia, paroxysmal atrial fibrillation with RVR, and metabolic derangements. 1. CAD s/p CABG with 2v bypass, PABLO to LAD, and SVG to posterior decending coronary artery 2. Paroxysmal Atrial Fibrillation, with RVR 3. 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 Pneumatosis, Ischemic Bowel, s/p small bowel resection 5. Acute Blood Loss Anemia, post-operative, resolved 6. Pneumoperitoneum secondary to chest tubes, resolving 7. CONNOR superimposed on CKD, stage III, worsening 8. Hypertension, essential 9. Hyperlipidemia 10. Type II DM, uncontrolled 11. Hypothyroidism 12. Obesity, BMI 30.5 13. Hyponatremia and Hyperkalemia DM 2 - Currently on insulin drip - A1C from 06/21/2020 5.2, anticipate discharge home back on metformin which may be able to come off in the near future in the outpatient setting. Small Bowel Ischemia - s/p resection - Finished 7 days course of IV Zosyn -Neurosurgery following closely, plan for starting some feeding through NG tube today. - MRSA nares negative A-fib with RVR On amio and eliquis On metoprolol BID CONNOR on CKD stage III Baseline cr 1.4-1.5 Likely cardiorenal syndrome, patient received contrast earlier in the admission. Avoid nephrotoxic meds Nephrology is following Pneumoperitoneum suspect secondary to mediastinal chest tubes -Tube d/melody -Resolved. COPD with acute exacerbation - On DuoNeb schedule Coronary artery disease -Status post coronary artery bypass grafting -Cardiothoracic and cardiology following HTN - meds per CT surgery - follow BP Hypothyroidism status post partial thyroidectomy - synthroid Morbid obesity with BMI 30.5 -Outpatient structured weight loss
--- NOTE | 2020-08-01 13:42 | P.PN ---
Subjective Progress Note Date: 08/01/20 CHIEF COMPLAINT: Status post CABG 2 vessels HISTORY OF PRESENT ILLNESS: Patient remains in the ICU. Patient is off of BiPAP and is on nasal cannula 6 L satting at 100%. Patient is postop day #8 status post small bowel resection for ischemic small bowel with evidence of pneumatosis. Patient remains on lovenox and amiodarone for his atrial fibrillation. He is on TPN for nutrition support. Patient is passing gas. Patient will be started on trickle feeds. Afebrile. WBC 17.9 Hgb 7.9 PHYSICAL EXAM: VITAL SIGNS: Reviewed. GENERAL: Well-developed in no acute distress. HEENT: No sclera icterus. Extraocular movements grossly intact. Moist buccal mucosa. Head is atraumatic, normocephalic. ABDOMEN: Soft. mildly distended. Incision dressing some shadowing noted at the distal aspect of dressing NEUROLOGIC: Patient is awake and alert answering questions ASSESSMENT: 1. Ischemic small bowel with evidence of pneumatosis status post small bowel resection 2. Acute hypoxic respiratory failure requiring mechanical ventilation 3. symptomatic triple-vessel coronary artery disease status post 2 vessel coronary bypass grafting surgery 4. Diabetes mellitus type 2 PLAN: -Start patient on trickle feeds -Continue TPN for nutrition support -Continue antibiotics -Continue supportive care -DVT prophylaxis subcu Lovenox and GI prophylaxis Protonix Physician Patient Placement Coordinator note has been reviewed by physician. Signing provider agrees with the documented findings, assessment, and plan of care. Objective - Vital Signs Vital signs: Vital Signs Temp 98.6 F 08/01/20 04:00 Pulse 98 08/01/20 11:21 Resp 26 H 08/01/20 07:00 BP 138/80 08/01/20 07:00 Pulse Ox 100 08/01/20 07:00 Intake & Output 07/31/20 08/01/20 08/01/20 18:59 06:59 18:59 Intake Total 2221.548 189.825 308.484 Output Total 2245 2850 100 Balance -23.452 -2660.175 208.484 Weight 104 kg 112.1 kg Intake: IV 852 168 13 Piperacillin-Tazobactam 3 100 .375 gm In Sodium Chloride 0.9% 100 ml @ 25 mls/hr IVPB Q8HR [facility] Rx# :[id number] Sodium Chloride 0.9% 1, 80 120 10 000 ml @ 20 mls/hr IV . Q24H [facility] Rx#:[id number] TPN 600 pressure bag 72 48 3 Intake, IV Titration 1369.548 21.825 295.484 Amount Amiodarone 300 mg In 229.167 Dextrose 5% in Water 250 ml @ 0.5 MG/MIN 25 mls/hr IV .Q10H [facility] Rx#: [id number] Amiodarone 300 mg In 250 Dextrose 5% in Water 250 ml @ 0.5 MG/MIN 25 mls/hr IV .Q10H [facility] Rx#: [id number] Insulin Regular 100 unit 102.381 21.825 45.484 In Sodium Chloride 0.9% 100 ml @ Per Protocol IV .Q0M [facility] Rx#:[id number] Mvi, Adult No.4 with Vit 1038 K 10 ml Trace (Conc-1Ml/ Dose) 1 ml Sodium Chloride 2.5MEQ/ml Vial 30 meq Calcium Gluconate 1 gm Potassium Chloride 10 meq In Amino Acid 5%- D15w 1,000 ml @ 75 mls/hr IV .BY DURATION [facility] Rx#: [id number] Output: Gastric Drainage 100 300 Urine 2145 2550 100 Other: Voiding Method Indwelling Catheter Indwelling Catheter ABP, PAP, CO, CI - Last Documented Arterial Blood Pressure 123/50 Pulmonary Artery Pressure 33/14 Cardiac Output 6.7 Cardiac Index 3.1 - Labs CBC & Chem 7: 08/01/20 04:27 08/01/20 04:27 Labs: Abnormal Lab Results - Last 24 Hours (Table) 07/31/20 07/31/20 07/31/20 Range/Units 13:51 15:07 15:56 WBC (3.8-10.6) k/uL RBC (4.30-5.90) m/uL Hgb (13.0-17.5) gm/dL Hct (39.0-53.0) % RDW (11.5-15.5) % Neutrophils # (1.3-7.7) k/uL Lymphocytes # (1.0-4.8) k/uL Sodium (137-145) mmol/L Potassium (3.5-5.1) mmol/L BUN (9-20) mg/dL Creatinine (0.66-1.25) mg/dL Glucose (74-99) mg/dL POC Glucose (mg/dL) 121 H 112 H 130 H (75-99) mg/dL Calcium (8.4-10.2) mg/dL Albumin (3.5-5.0) g/dL 07/31/20 07/31/20 07/31/20 Range/Units 17:53 20:13 22:13 WBC (3.8-10.6) k/uL RBC (4.30-5.90) m/uL Hgb (13.0-17.5) gm/dL Hct (39.0-53.0) % RDW (11.5-15.5) % Neutrophils # (1.3-7.7) k/uL Lymphocytes # (1.0-4.8) k/uL Sodium (137-145) mmol/L Potassium (3.5-5.1) mmol/L BUN (9-20) mg/dL Creatinine (0.66-1.25) mg/dL Glucose (74-99) mg/dL POC Glucose (mg/dL) 130 H 109 H 140 H (75-99) mg/dL Calcium (8.4-10.2) mg/dL Albumin (3.5-5.0) g/dL 08/01/20 08/01/20 08/01/20 Range/Units 00:04 01:16 02:16 WBC (3.8-10.6) k/uL RBC (4.30-5.90) m/uL Hgb (13.0-17.5) gm/dL Hct (39.0-53.0) % RDW (11.5-15.5) % Neutrophils # (1.3-7.7) k/uL Lymphocytes # (1.0-4.8) k/uL Sodium (137-145) mmol/L Potassium (3.5-5.1) mmol/L BUN (9-20) mg/dL Creatinine (0.66-1.25) mg/dL Glucose (74-99) mg/dL POC Glucose (mg/dL) 180 H 177 H 165 H (75-99) mg/dL Calcium (8.4-10.2) mg/dL Albumin (3.5-5.0) g/dL 08/01/20 08/01/2008/01/20 Range/Units 04:21 04:27 04:27 WBC 17.7 H (3.8-10.6) k/uL RBC 2.45 L (4.30-5.90) m/uL Hgb 7.9 L (13.0-17.5) gm/dL Hct 23.6 L (39.0-53.0) % RDW 16.4 H (11.5-15.5) % Neutrophils # 16.4 H (1.3-7.7) k/uL Lymphocytes # 0.3 L (1.0-4.8) k/uL Sodium 133 L (137-145) mmol/L Potassium 3.3 L (3.5-5.1) mmol/L BUN 69 H (9-20) mg/dL Creatinine 1.89 H (0.66-1.25) mg/dL Glucose 133 H (74-99) mg/dL POC Glucose (mg/dL) 153 H (75-99) mg/dL Calcium 7.8 L (8.4-10.2) mg/dL Albumin (3.5-5.0) g/dL 08/01/20 08/01/20 08/01/20 Range/Units 06:19 07:10 08:24 WBC (3.8-10.6) k/uL RBC (4.30-5.90) m/uL Hgb (13.0-17.5) gm/dL Hct (39.0-53.0) % RDW (11.5-15.5) % Neutrophils # (1.3-7.7) k/uL Lymphocytes # (1.0-4.8) k/uL Sodium (137-145) mmol/L Potassium (3.5-5.1) mmol/L BUN (9-20) mg/dL Creatinine (0.66-1.25) mg/dL Glucose (74-99) mg/dL POC Glucose (mg/dL) 117 H 122 H 136 H (75-99) mg/dL Calcium (8.4-10.2) mg/dL Albumin (3.5-5.0) g/dL 08/01/20 08/01/20 Range/Units 09:35 09:37 WBC (3.8-10.6) k/uL RBC (4.30-5.90) m/uL Hgb (13.0-17.5) gm/dL Hct (39.0-53.0) % RDW (11.5-15.5) % Neutrophils # (1.3-7.7) k/uL Lymphocytes # (1.0-4.8) k/uL Sodium (137-145) mmol/L Potassium (3.5-5.1) mmol/L BUN (9-20) mg/dL Creatinine (0.66-1.25) mg/dL Glucose (74-99) mg/dL POC Glucose (mg/dL) 126 H (75-99) mg/dL Calcium (8.4-10.2) mg/dL Albumin 2.4 L (3.5-5.0) g/dL
[2020-08-01] MEDS ORDERED: INSULIN ASPART (NovoLOG) 100 UNIT/ML VIAL SQ SCH (14:00)
[2020-08-01 14:10] LABS: Glucose,Whole Blood 128 mg/dL (75-99)
--- NOTE | 2020-08-01 14:27 | P.PN ---
Subjective Progress Note Date: 08/01/20 Principal diagnosis: Status post CABG, postoperative day #13. 79-year-old white male patient with past medical history of hypertension, hyperlipidemia, moderate to severe COPD with the baseline FEV1 of 56% of predicted who came in on 07/18/2020 for elective two-vessel bypass grafting with PABLO to LAD, and SVG to the PDA. He was seen in the intensive care unit following surgery, patient was successfully weaned and extubated from mechanical ventilator and under 6 hours following his OR exit, is currently awake and alert, sitting in the chair, he is currently on 2 L of oxygen, his pulse ox is 98%, hemodynamically he stable, blood pressure is 106/51, PA pressures 35/11, CVP is 8, no fever or chills, IV fluids including the 0.9 normal saline at a rate of 30 ML per hour, insulin is 4.5 units per hour, no vasoactive drips. Today's chest x-ray shows a pneumoperitoneum with lucency present underneath the right hemidiaphragm. He has left pleural and mediastinal chest tube, and there has been 500 mL of serosanguineous output from the left pleural and 350 mL from the mediastinal chest tube in the last 24 hours. Is having some mild discomfort under the right rib cage, but no acute distress, abdomen is distended but soft, he is hemodynamically stable, he is in sinus mechanism, no nausea vomiting or diarrhea. CT of the abdomen and pelvis is pending today's labs have been reviewed, showing white blood cell count of 11.9, hemoglobin of 9, sodium is 133, the rest of the electrolytes were within normal limits, B1 is 25 creatinine is 1.18 On 07/21/2020 patient seen in follow-up in the intensive care unit, today is postoperative day 3 status post three-vessel coronary artery bypass grafting, (patient became more short of breath, wheezy, patient has a known history of moderately severe COPD/emphysema, we started him on IV Solu-Medrol, and Pulmicort and Perforomist were added. This morning she remains on 3 L of oxygen his pulse ox is 94-95%, hemodynamically he stable, he just on plan and was seen and rated 20 ML per hour, insulin is a 2.5 units per hour, today's chest x-ray showing slight increased bibasilar atelectasis or infiltrates. He thinks the breathing treatments in the steroids have significantly helped, breathing easier, he is achieving 500-750 on his incentive spirometer, not able to bring up any sputum yet. he is currently sitting up in a chair, in no acute distress, his incisional pain is fairly well-controlled, patient had another episode of A. fib with RVR last night, he is back in sinus rhythm with a controlled rate this morning. He received a dose of Lasix this morning. Chest tubes have been discontinued. On 07/31/2020 patient seen in follow-up in the intensive care unit. He is postoperative day 12 status post three-vessel bypass grafting, and postoperative day #7 status post exploratory laparotomy and small bowel resection, he is awake and alert, he was extubated yesterday to a BiPAP support, this morning he remains on BiPAP, pressures of 10 and 5, and FiO2 of 35%, and his pulse ox is 100%, hemodynamically he stable, he is A. fib on a monitor with a rate of 98 BPM, he is currently on 9.9 normal seen at a rate of 10 ML per hour, insulin is at 2 units per hour, amiodarone at 0.5 mg per hour, heparin is at weight-based protocol, and TPN is a 75 ML per hour. Today's chest x-ray shows a stable portable chest, with bibasilar infiltrates greater on the right. She remains on Lasix at 40 mg every 12 hours, and he is negative fluid balance negative, at - 645 ML over the last 24 hours. No fever or chills, appears to be normally swollen, we will plus edema in lower extremities, his labs have been reviewed, showing white blood cell count 15.1, hemoglobin of 8, sodium of 132, potassium is 3.5, chloride is 100, his BUN is 63, and a creatinine is 1.94, calcitonin is trending down, down to 1.41 from 3.53. He remains on Zosyn or antibiotic coverage for evidence of Pseudomonas in his sputum culture. His NG tube in place to low intermittent suction, and there has been about 400 mL of bilious output in the last 24 hours, patient is passing gas but has not had any bowel movement yet. Surgical services are following. Reevaluated today on 08/01/20, patient remains in the ICU, presently on 5 L nasal cannula, was on BiPAP last night. Patient remains on TPN, amiodarone at 0.5 mg/m, he is also on insulin at 4 units per hour. Patient looks frail, he is postoperative day #13 status post CABG, and postoperative day #8 post exploratory laparotomy and small bowel resection. Patient was extubated on , intermittently on BiPAP especially at night. Patient is hemodynamically stable, not requiring any pressors. Remains on diuretics, and his chest x-ray today showed worsening bibasilar infiltrates and small effusions, remain empirically on antibiotics. Patient remains on Zosyn, and his sputum was positive for pseudomonas aeruginosa. WBC count is 17.7 hemoglobin is 7.9. Electrolytes are normal except for slightly low potassium of 3.3, renal profile is about the same as it has been in the last few days, BUN of 69 and creatinine of 1.89. Pro-calcitonin is coming down, it is 1.41 Objective - Vital Signs Vital signs: Vital Signs Temp 98.6 F 08/01/20 04:00 Pulse 98 08/01/20 11:21 Resp 26 H 08/01/20 07:00 BP 138/80 08/01/20 07:00 Pulse Ox 100 08/01/20 07:00 Intake & Output 07/31/20 08/01/20 08/01/20 18:59 06:59 18:59 Intake Total 2221.548 189.825 308.484 Output Total 2245 2850 100 Balance -23.452 -2660.175 208.484 Weight 104 kg 112.1 kg 112.1 kg Intake: IV 852 168 13 Piperacillin-Tazobactam 3 100 .375 gm In Sodium Chloride 0.9% 100 ml @ 25 mls/hr IVPB Q8HR [facility] Rx# :[id number] Sodium Chloride 0.9% 1, 80 120 10 000 ml @ 20 mls/hr IV . Q24H [facility] Rx#:[id number] TPN 600 pressure bag 72 48 3 Intake, IV Titration 1369.548 21.825 295.484 Amount Amiodarone 300 mg In 229.167 Dextrose 5% in Water 250 ml @ 0.5 MG/MIN 25 mls/hr IV .Q10H [facility] Rx#: [id number] Amiodarone 300 mg In 250 Dextrose 5% in Water 250 ml @ 0.5 MG/MIN 25 mls/hr IV .Q10H [facility] Rx#: [id number] Insulin Regular 100 unit 102.381 21.825 45.484 In Sodium Chloride 0.9% 100 ml @ Per Protocol IV .Q0M [facility] Rx#:[id number] Mvi, Adult No.4 with Vit 1038 K 10 ml Trace (Conc-1Ml/ Dose) 1 ml Sodium Chloride 2.5MEQ/ml Vial 30 meq Calcium Gluconate 1 gm Potassium Chloride 10 meq In Amino Acid 5%- D15w 1,000 ml @ 75 mls/hr IV .BY DURATION [facility] Rx#: [id number] Output: Gastric Drainage 100 300 Urine 2145 2550 100 Other: Voiding Method Indwelling Catheter Indwelling Catheter ABP, PAP, CO, CI - Last Documented Arterial Blood Pressure 123/50 Pulmonary Artery Pressure 33/14 Cardiac Output 6.7 Cardiac Index 3.1 - Exam GENERAL EXAM: Alert, very pleasant, 79-year-old, on 5 L nasal cannula. HEAD: Normocephalic/atraumatic. ENT: PERRLA, EOMI, no icterus, no neck masses, no JVD, no stridor. CHEST: No chest wall deformity. Symmetrical expansion. Sternal incision is clean dry and intact, chest tube sites clean dry and intact LUNGS: Equal air entry fine crackles at the base. CVS: irregular rate and rhythm, normal S1 and S2, no gallops, no murmurs, no rubs ABDOMEN: Soft, nontender. No hepatosplenomegaly, normal bowel sounds, no guarding or rigidity. Abdominal incision is clean dry and intact EXTREMITIES: Trace of edema no clubbing no cyanosis. Pulses bilaterally.. MUSCULOSKELETAL: Generally weak.. SKIN: No rashes CENTRAL NERVOUS SYSTEM: Alert and oriented -3. No gross deficits. - Labs CBC & Chem 7: 08/01/20 04:27 08/01/20 04:27 Labs: Abnormal Lab Results - Last 24 Hours (Table) 07/31/20 07/31/20 07/31/20 Range/Units 15:07 15:56 17:53 WBC (3.8-10.6) k/uL RBC (4.30-5.90) m/uL Hgb (13.0-17.5) gm/dL Hct (39.0-53.0) % RDW (11.5-15.5) % Neutrophils # (1.3-7.7) k/uL Lymphocytes # (1.0-4.8) k/uL Sodium (137-145) mmol/L Potassium (3.5-5.1) mmol/L BUN (9-20) mg/dL Creatinine (0.66-1.25) mg/dL Glucose (74-99) mg/dL POC Glucose (mg/dL) 112 H 130 H 130 H (75-99) mg/dL Calcium (8.4-10.2) mg/dL Albumin (3.5-5.0) g/dL 07/31/20 07/31/20 08/01/20 Range/Units 20:13 22:13 00:04 WBC (3.8-10.6) k/uL RBC (4.30-5.90) m/uL Hgb (13.0-17.5) gm/dL Hct (39.0-53.0) % RDW (11.5-15.5) % Neutrophils # (1.3-7.7) k/uL Lymphocytes # (1.0-4.8) k/uL Sodium (137-145) mmol/L Potassium (3.5-5.1) mmol/L BUN (9-20) mg/dL Creatinine (0.66-1.25) mg/dL Glucose (74-99) mg/dL POC Glucose (mg/dL) 109 H 140 H 180 H (75-99) mg/dL Calcium (8.4-10.2) mg/dL Albumin (3.5-5.0) g/dL 08/01/20 08/01/20 08/01/20 Range/Units 01:16 02:16 04:21 WBC (3.8-10.6) k/uL RBC (4.30-5.90) m/uL Hgb (13.0-17.5) gm/dL Hct (39.0-53.0) % RDW (11.5-15.5) % Neutrophils # (1.3-7.7) k/uL Lymphocytes # (1.0-4.8) k/uL Sodium (137-145) mmol/L Potassium (3.5-5.1) mmol/L BUN (9-20) mg/dL Creatinine (0.66-1.25) mg/dL Glucose (74-99) mg/dL POC Glucose (mg/dL) 177 H 165 H 153 H (75-99) mg/dL Calcium (8.4-10.2) mg/dL Albumin (3.5-5.0) g/dL 08/01/20 08/01/20 08/01/20 Range/Units 04:27 04:27 06:19 WBC 17.7 H (3.8-10.6) k/uL RBC 2.45 L (4.30-5.90) m/uL Hgb 7.9 L (13.0-17.5) gm/dL Hct 23.6 L (39.0-53.0) % RDW 16.4 H (11.5-15.5) % Neutrophils # 16.4 H (1.3-7.7) k/uL Lymphocytes # 0.3 L (1.0-4.8) k/uL Sodium 133 L (137-145) mmol/L Potassium 3.3 L (3.5-5.1) mmol/L BUN 69 H (9-20) mg/dL Creatinine 1.89 H (0.66-1.25) mg/dL Glucose 133 H (74-99) mg/dL POC Glucose (mg/dL) 117 H (75-99) mg/dL Calcium 7.8 L (8.4-10.2) mg/dL Albumin (3.5-5.0) g/dL 08/01/20 08/01/20 08/01/20 Range/Units 07:10 08:24 09:35 WBC (3.8-10.6) k/uL RBC (4.30-5.90) m/uL Hgb (13.0-17.5) gm/dL Hct (39.0-53.0) % RDW (11.5-15.5) % Neutrophils # (1.3-7.7) k/uL Lymphocytes # (1.0-4.8) k/uL Sodium (137-145) mmol/L Potassium (3.5-5.1) mmol/L BUN (9-20) mg/dL Creatinine (0.66-1.25) mg/dL Glucose (74-99) mg/dL POC Glucose (mg/dL) 122 H 136 H (75-99) mg/dL Calcium (8.4-10.2) mg/dL Albumin 2.4 L (3.5-5.0) g/dL 08/01/20 08/01/20 Range/Units 09:37 14:08 WBC (3.8-10.6) k/uL RBC (4.30-5.90) m/uL Hgb (13.0-17.5) gm/dL Hct (39.0-53.0) % RDW (11.5-15.5) % Neutrophils # (1.3-7.7) k/uL Lymphocytes # (1.0-4.8) k/uL Sodium (137-145) mmol/L Potassium (3.5-5.1) mmol/L BUN (9-20) mg/dL Creatinine (0.66-1.25) mg/dL Glucose (74-99) mg/dL POC Glucose (mg/dL) 126 H 128 H (75-99) mg/dL Calcium (8.4-10.2) mg/dL Albumin (3.5-5.0) g/dL Assessment and Plan Assessment: #1. Symptomatic coronary artery disease, status post two-vessel coronary artery bypass grafting with PABLO to the LAD, SVG to the PDA, postoperative day #13 #2. Postoperative atrial fibrillation with rapid ventricular response requiring amiodarone and metoprolol, currently on heparin for anticoagulation #3. Acute ischemic small bowel, pneumatosis, status post exploratory laparotomy and small bowel resection, on 07/24/2020, today is postoperative day #8 #4. Acute hypoxic respiratory failure following bowel surgery, patient was extubated on 07/30/2022 BiPAP at night, and nasal cannula during the day. #5. Small atelectatic/pleural effusions involving both lung bases in addition to a small to moderate bilateral pleural effusion cannot rule out underlying infiltrate. Certainly secondary to Pseudomonas. #6. Evidence of Pseudomonas in the sputum culture, patient is covered with Zosyn for antibiotic coverage #7. History of coronary artery disease with previous stent placement #8. History of hypertension #9. History of hyperlipidemia #10. Acute on chronic kidney injury. #11. COPD moderate to severe with preop FEV1 of 53% of predicted #12. 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 Chronic kidney disease stage III at baseline #14. Diabetes mellitus type 2 #15. Postoperative acute blood loss anemia, expected outcome of open heart surgery #16. Postoperative paroxysmal A. fib, patient has had 2 episodes of A. fib with RVR in the postoperative period #17. Hypothyroidism status post partial thyroidectomy Recommendation: Continue to monitor in the ICU. Titrate oxygen, maintain O2 saturation above 90%. Placed patient on Zosyn especially with worsening chest x-ray findings. Continue bronchodilators. Continue insulin and close monitoring of sugars. Physical therapy. Patient will likely need to have some placement. Continue incentive spirometry. Continue low-dose aspirin and beta blockers. Continue amiodarone. Continue GI and DVT prophylaxis. Continue TPN. We'll continue to follow. Critical care time is over 30 minutes Time with Patient: Greater than 30
[2020-08-01 16:33] LABS: Glucose,Whole Blood 88 mg/dL (75-99)
[2020-08-01 16:36] LABS: % Iron Saturation 18.72 (15.00-50.00); Ferritin 833.9 ng/mL (22.0-322.0)
[2020-08-01] MEDS: SODIUM CHLORIDE 0.9% 1,000 ML IV SCH (18:12)
[2020-08-01] MEDS: INSULIN ASPART (NovoLOG) 100 UNIT/ML VIAL SQ SCH (18:21)
[2020-08-01 18:23] LABS: Glucose,Whole Blood 185 mg/dL (75-99)
[2020-08-01] MEDS: INSULIN DETEMIR (LEVEMIR) 100 UNIT/ML SYR SQ SCH (21:26)
[2020-08-01] MEDS: NOREPINEPHRINE 8 MG in SODIUM CHLORIDE 0.9% 250 ML IV SCH (22:47)
[2020-08-01 23:46] LABS: Glucose,Whole Blood 205 mg/dL (75-99)
[2020-08-02] MEDS: PIPERACILLIN-TAZOBACTAM 3.375 GM in SODIUM CHLORIDE 0.9% 100 ML IVPB SCH ×3 (00:14→17:11)
[2020-08-02] MEDS: INSULIN ASPART (NovoLOG) 100 UNIT/ML VIAL SQ SCH ×4 (00:17→17:15)
[2020-08-02] MEDS: NOREPINEPHRINE 8 MG in SODIUM CHLORIDE 0.9% 250 ML IV SCH ×3 (04:58→19:01)
[2020-08-02] MEDS: AMIODARONE 300 MG in DEXTROSE 5% IN WATER 250 ML IV SCH ×4 (04:59→16:00)
[2020-08-02 05:35] LABS: Glucose,Whole Blood 197 mg/dL (75-99)
[2020-08-02 05:54] LABS: Anisocytosis Slight; HCT 21.3 % (39.0-53.0); Hypochromasia Marked; MCH 31.5 pg (25.0-35.0); MCHC 31.8 g/dL (31.0-37.0); Macrocytosis Slight; Mean Platelet Volume 8.3; Platelet Count 306 k/uL (150-450); Poikilocytosis Moderate; RBC 2.16 m/uL (4.30-5.90); RDW 17.5 % (11.5-15.5)
[2020-08-02 06:05] LABS: INR 1.3 (<1.2)
[2020-08-02 06:23] LABS: Calcium 8.3 mg/dL (8.4-10.2); Magnesium 1.9 mg/dL (1.6-2.3); Phosphorus 6.5 mg/dL (2.5-4.5); Potassium 4.2 mmol/L (3.5-5.1)
[2020-08-02 06:49] LABS: HGB 6.8 gm/dL (13.0-17.5)
--- NOTE | 2020-08-02 06:58 | XR ---
EXAMINATION TYPE: XR chest 1V portable DATE OF EXAM: 08/02/2020 COMPARISON: 08/01/2020 HISTORY: SOB, Follow Up FINDINGS: Indwelling tubes and catheters are unchanged. No change in bibasilar opacities. Stable appearance of the cardio-mediastinal structures at this time. Pleural effusion unchanged. IMPRESSION: 1. Stable portable chest. Clinical correlation and follow up until resolution is recommended.
[2020-08-02 07:24] LABS: Band Neutrophils % 6 %; Eosinophils # (M) 0.29 k/uL (0-0.7); Metamyelocytes # (M) 1.46 k/uL (0); Metamyelocytes % 5 %; Monocytes # (M) 2.33 k/uL (0-1.0); Myelocytes # (M) 0.58 k/uL (0); Myelocytes % 2 %; Neutrophils % (M) 80 %; Nucleated Red Blood Cells 1 /100 WBC (0-0); Total Cells Counted 200; WBC 29.1 k/uL (3.8-10.6)
[2020-08-02 07:25] LABS: Polychromasia Present
[2020-08-02 07:35] LABS: ABG Base Excess -1.8 mmol/L; ABG HCO3 25 mmol/L (21-25); ABG Oxygen Saturation 96.2 % (94-97); ABG PCO2 51 mmHg (35-45); ABG PH 7.29 (7.35-7.45); ABG PO2 82 mmHg (83-108); ABG TCO2 26 mmol/L (19-24); Allen Test Performed? Yes
[2020-08-02] MEDS: ACETYLCYSTEINE 800 MG/4 ML VIAL INHALATION SCH ×2 (07:38→12:07)
[2020-08-02] MEDS: BUDESONIDE 1 MG/2 ML NEBU INHALATION SCH ×2 (07:39→19:17)
[2020-08-02] MEDS: FORMOTEROL FUMARATE 20 MCG/2 ML NEBU INHALATION SCH ×2 (07:39→19:17)
[2020-08-02] MEDS: IPRATROPIUM-ALBUTEROL 3 ML NEB INHALATION SCH ×4 (07:39→19:17)
[2020-08-02] MEDS ORDERED: PHENYLEPHRINE 10 MG/ML VIAL ONE ×2 (08:20→10:15)
[2020-08-02] MEDS ORDERED: SUCCINYLCHOLINE CHLORIDE VIAL 200 MG/10 ML VIAL IV ONE (08:20)
[2020-08-02] MEDS ORDERED: ETOMIDATE 2 MG/ML 10 ML VIAL ONE (08:20)
[2020-08-02 08:29] LABS: Glucose,Whole Blood 187 mg/dL (75-99)
--- NOTE | 2020-08-02 08:35 | P.PN ---
Progress Note - Text Progress Note Date: 08/02/20 The patient has had a deterioration in his condition. He is now requiring pressor support. He has complaints of severe abdominal pain. On exam her respiratory rate is in the 30s. Patient appears to be in distress. Abdomen is soft with rebound tenderness. Patient will undergo exploratory laparotomy this morning.
[2020-08-02] MEDS ORDERED: propofoL 100 ML IV ONE (08:46)
[2020-08-02 08:47] LABS: ABG Base Excess -2.2 mmol/L; ABG HCO3 25 mmol/L (21-25); ABG PCO2 52 mmHg (35-45); ABG PH 7.28 (7.35-7.45); ABG PO2 292 mmHg (83-108); ABG TCO2 26 mmol/L (19-24); Allen Test Performed? Yes
[2020-08-02] MEDS ORDERED: AMIODARONE 200 MG TAB PO SCH (09:00)
--- NOTE | 2020-08-02 09:08 | XR ---
EXAMINATION TYPE: XR chest 1V portable DATE OF EXAM: 08/02/2020 COMPARISON: 08/02/2020 HISTORY: SOB, Follow Up FINDINGS: Indwelling tubes and catheters are unchanged. No change in bibasilar opacities. Stable appearance of the cardio-mediastinal structures at this time. Pleural effusion unchanged. IMPRESSION: 1. Stable portable chest. Clinical correlation and follow up until resolution is recommended.
[2020-08-02] MEDS: HYDROmorphone 1 MG/ML 1 ML SYRINGE IVP PRN (09:45)
--- NOTE | 2020-08-02 10:08 | P.PN ---
Subjective Patient is seen in follow-up for acute kidney injury on chronic kidney disease. Renal function worse. Patient became hypotensive last night and is currently on Levophed. He is also on amiodarone drip for A. fib with RVR. Currently on 50% FiO2. Intubated. Receiving TPN. Scheduled for another bowel surgery today. Vital signs are stable. On vasopressor support. HEENT: Intubated. NG tube noted. LUNGS: Breath sounds decreased. HEART: Irregular rate and rhythm. ABDOMEN: No gross distention noted. EXTREMITITES: 1+ edema. Objective - Vital Signs Vital signs: Vital Signs Temp 97.9 F 08/02/20 09:52 Pulse 112 H 08/02/20 09:52 Resp 24 08/02/20 09:52 BP 87/40 08/02/20 09:52 Pulse Ox 100 08/02/20 09:52 Intake & Output 08/01/20 08/02/20 08/02/20 18:59 06:59 18:59 Intake Total 5043.102 4192.101 561.593 Output Total 1080 700 75 Balance 235.484 955.101 486.593 Weight 112.1 kg 98.9 kg Intake: IV 1020 1072 383 Piperacillin-Tazobactam 3 100 100 100 .375 gm In Sodium Chloride 0.9% 100 ml @ 25 mls/hr IVPB Q8HR [facility] Rx# :[id number] Sodium Chloride 0.9% 1, 50 40 000 ml @ 20 mls/hr IV . Q24H [facility] Rx#:[id number] TPN 801 900 225 pressure bag 69 72 18 Intake, IV Titration 295.484 343.101 178.593 Amount Amiodarone 300 mg In 250 Dextrose 5% in Water 250 ml @ 0.5 MG/MIN 25 mls/hr IV .Q10H [facility] Rx#: [id number] Amiodarone 300 mg In 220.833 Dextrose 5% in Water 250 ml @ 0.5 MG/MIN 25 mls/hr IV .Q10H [facility] Rx#: [id number] Insulin Regular 100 unit 45.484 In Sodium Chloride 0.9% 100 ml @ Per Protocol IV .Q0M [facility] Rx#:[id number] Norepinephrine 8 mg In 122.268 178.593 Sodium Chloride 0.9% 250 ml @ 0.05 MCG/KG/MIN 10. 846 mls/hr IV .[id number] [facility] Rx#:[id number] Tube Feeding 120 Blood Product 0 Rc As-1 Unit 0 [id number] Other 120 Output: Gastric Drainage 250 Urine 1080 450 75 Other: Voiding Method Indwelling Catheter Indwelling Catheter ABP, PAP, CO, CI - Last Documented Arterial Blood Pressure 82/34 Pulmonary Artery Pressure 33/14 Cardiac Output 6.7 Cardiac Index 3.1 - Labs CBC & Chem 7: 08/02/20 05:36 08/02/20 05:36 Labs: Abnormal Lab Results - Last 24 Hours (Table) 08/01/20 08/01/20 08/01/20 Range/Units 09:35 09:35 14:08 WBC (3.8-10.6) k/uL RBC (4.30-5.90) m/uL Hgb (13.0-17.5) gm/dL Hct (39.0-53.0) % RDW (11.5-15.5) % Neutrophils # (Manual) (1.3-7.7) k/uL Monocytes # (Manual) (0-1.0) k/uL Metamyelocytes # (Man) (0) k/uL Myelocytes # (Manual) (0) k/uL Nucleated RBCs (0-0) /100 WBC PT (9.0-12.0) sec INR (<1.2) ABG pH (7.35-7.45) ABG pCO2 (35-45) mmHg ABG pO2 (83-108) mmHg ABG Total CO2 (19-24) mmol/L ABG O2 Saturation (94-97) % Sodium (137-145) mmol/L BUN (9-20) mg/dL Creatinine (0.66-1.25) mg/dL Glucose (74-99) mg/dL POC Glucose (mg/dL) 128 H (75-99) mg/dL Calcium (8.4-10.2) mg/dL Phosphorus (2.5-4.5) mg/dL Iron 38 L 38 L (65-175) ug/dL TIBC 203 L (228-460) ug/dL Ferritin 833.9 H (22.0-322.0) ng/mL Albumin 2.4 L (3.5-5.0) g/dL Crossmatch 08/01/20 08/01/20 08/02/20 Range/Units 18:12 23:42 05:31 WBC (3.8-10.6) k/uL RBC (4.30-5.90) m/uL Hgb (13.0-17.5) gm/dL Hct (39.0-53.0) % RDW (11.5-15.5) % Neutrophils # (Manual) (1.3-7.7) k/uL Monocytes # (Manual) (0-1.0) k/uL Metamyelocytes # (Man) (0) k/uL Myelocytes # (Manual) (0) k/uL Nucleated RBCs (0-0) /100 WBC PT (9.0-12.0) sec INR (<1.2) ABG pH (7.35-7.45) ABG pCO2 (35-45) mmHg ABG pO2 (83-108) mmHg ABG Total CO2 (19-24) mmol/L ABG O2 Saturation (94-97) % Sodium (137-145) mmol/L BUN (9-20) mg/dL Creatinine (0.66-1.25) mg/dL Glucose (74-99) mg/dL POC Glucose (mg/dL) 185 H 205 H 197 H (75-99) mg/dL Calcium (8.4-10.2) mg/dL Phosphorus (2.5-4.5) mg/dL Iron (65-175) ug/dL TIBC (228-460) ug/dL Ferritin (22.0-322.0) ng/mL Albumin (3.5-5.0) g/dL Crossmatch 08/02/20 08/02/20 08/02/20 Range/Units 05:36 05:36 05:36 WBC 29.1 H (3.8-10.6) k/uL RBC 2.16 L (4.30-5.90) m/uL Hgb 6.8 L* (13.0-17.5) gm/dL Hct 21.3 L (39.0-53.0) % RDW 17.5 H (11.5-15.5) % Neutrophils # (Manual) 25.00 H (1.3-7.7) k/uL Monocytes # (Manual) 2.33 H (0-1.0) k/uL Metamyelocytes # (Man) 1.46 H (0) k/uL Myelocytes # (Manual) 0.58 H (0) k/uL Nucleated RBCs 1 H (0-0) /100 WBC PT 13.0 H (9.0-12.0) sec INR 1.3 H (<1.2) ABG pH (7.35-7.45) ABG pCO2 (35-45) mmHg ABG pO2 (83-108) mmHg ABG Total CO2 (19-24) mmol/L ABG O2 Saturation (94-97) % Sodium 135 L (137-145) mmol/L BUN 91 H (9-20) mg/dL Creatinine 2.54 H (0.66-1.25) mg/dL Glucose 177 H (74-99) mg/dL POC Glucose (mg/dL) (75-99) mg/dL Calcium 8.3 L (8.4-10.2) mg/dL Phosphorus 6.5 H (2.5-4.5) mg/dL Iron (65-175) ug/dL TIBC (228-460) ug/dL Ferritin (22.0-322.0) ng/mL Albumin (3.5-5.0) g/dL Crossmatch 08/02/20 08/02/20 08/02/20 Range/Units 07:30 07:55 08:28 WBC (3.8-10.6) k/uL RBC (4.30-5.90) m/uL Hgb (13.0-17.5) gm/dL Hct (39.0-53.0) % RDW (11.5-15.5) % Neutrophils # (Manual) (1.3-7.7) k/uL Monocytes # (Manual) (0-1.0) k/uL Metamyelocytes # (Man) (0) k/uL Myelocytes # (Manual) (0) k/uL Nucleated RBCs (0-0) /100 WBC PT (9.0-12.0) sec INR (<1.2) ABG pH 7.29 L (7.35-7.45) ABG pCO2 51 H (35-45) mmHg ABG pO2 82 L (83-108) mmHg ABG Total CO2 26 H (19-24) mmol/L ABG O2 Saturation (94-97) % Sodium (137-145) mmol/L BUN (9-20) mg/dL Creatinine (0.66-1.25) mg/dL Glucose (74-99) mg/dL POC Glucose (mg/dL) 187 H (75-99) mg/dL Calcium (8.4-10.2) mg/dL Phosphorus (2.5-4.5) mg/dL Iron (65-175) ug/dL TIBC (228-460) ug/dL Ferritin (22.0-322.0) ng/mL Albumin (3.5-5.0) g/dL Crossmatch See Detail 08/02/20 Range/Units 08:46 WBC (3.8-10.6) k/uL RBC (4.30-5.90) m/uL Hgb (13.0-17.5) gm/dL Hct (39.0-53.0) % RDW (11.5-15.5) % Neutrophils # (Manual) (1.3-7.7) k/uL Monocytes # (Manual) (0-1.0) k/uL Metamyelocytes # (Man) (0) k/uL Myelocytes # (Manual) (0) k/uL Nucleated RBCs (0-0) /100 WBC PT (9.0-12.0) sec INR (<1.2) ABG pH 7.28 L (7.35-7.45) ABG pCO2 52 H (35-45) mmHg ABG pO2 292 H (83-108) mmHg ABG Total CO2 26 H (19-24) mmol/L ABG O2 Saturation 100.0 H (94-97) % Sodium (137-145) mmol/L BUN (9-20) mg/dL Creatinine (0.66-1.25) mg/dL Glucose (74-99) mg/dL POC Glucose (mg/dL) (75-99) mg/dL Calcium (8.4-10.2) mg/dL Phosphorus (2.5-4.5) mg/dL Iron (65-175) ug/dL TIBC (228-460) ug/dL Ferritin (22.0-322.0) ng/mL Albumin (3.5-5.0) g/dL Crossmatch Assessment and Plan Plan: Assessment: 1. Acute kidney injury secondary to hemodynamic ATN. No hydronephrosis noted on computed tomography scan. No proteinuria on UA. Renal function worse due to hypotension - creatinine 2.54 today. Nonoliguric. 2. Chronic kidney disease stage III with baseline creatinine in the range of 1.2-1.5 secondary to nephrosclerosis. UA from June 2020 was benign. 3. Coronary artery disease status post 2 vessel CABG on July 18. 4. Hypervolemic hyponatremia. Improved with diuresis. 5. Bowel ischemia status post exploratory laparotomy and resection. Scheduled for another surgery today. 6. Diabetes mellitus. 7. Volume overload. Improving with diuresis. 8. Hypokalemia secondary to diuresis. Replaced. 9. A. fib maintained on amiodarone drip. 10. Anemia of chronic kidney disease and post-cabg. Requiring blood transfusions. Plan: Maintain IV Lasix 40 mg twice daily. Maintain TPN per surgical recommendations. Avoid nephrotoxins. Continue to monitor renal function and urine output. Wean FiO2 and vasopressors.
[2020-08-02] MEDS ORDERED: ROCURONIUM 10 MG/ML (10 ML VIAL) IV ONE (10:15)
[2020-08-02] MEDS ORDERED: fentaNYL (PF) 50 MCG/ML 2 ML AMP ONE (10:15)
--- NOTE | 2020-08-02 10:37 | P.PN ---
Subjective Progress Note Date: 08/02/20 Principal diagnosis: Symptomatic triple-vessel coronary artery disease, mild left ventricular dysfunction. Past medical history significant for hypertension, hyperlipidemia, chronic obstructive pulmonary disease with preoperative FEV1 of 53% of predicted value, coronary artery disease with previous stenting to his right coronary artery in 2002, hypothyroid status post partial thyroidectomy, previous tobacco dependence quit smoking 20 years ago, type 2 diabetes mellitus with a preoperative hemoglobin A1c of 5.2%, and chronic kidney disease stage III with a baseline creatinine of 1.4-1.5, family history of premature coronary artery disease with a brother having a CABG at less than 50 years of age. POD #15 double coronary artery bypass grafting using the left internal mammary artery to left anterior descending coronary artery, a reverse greater saphenous vein graft from the aorta to the posterior descending coronary artery. Exclusion of the left atrial appendage using a 35 mm Atriclip, endoscopic harvesting of the right greater saphenous vein, graft flow measurement using the BlueRoninstim system, intraoperative transesophageal echocardiogram and epi-aortic scanning. Postoperative acute blood loss anemia, an expected outcome from hemodilution and cardiopulmonary bypass. Postoperative paroxysmal atrial fibrillation, unexpected. Postoperative pneumoperitoneum, unexpected. Acute on chronic kidney disease secondary to acute tubular necrosis. Pneumatosis of the small bowel. POD #9 ischemic bowel, small bowel resection. Prolonged mechanical ventilation, unexpected. Acute hypoxic respiratory failure requiring reintubation, unexpected. Postoperative hypotension requiring initiation of norepinephrine drip, unexpected. The patient was seen in follow-up today 08/02/2020 at his bedside in the intensive care unit. Currently the patient is on norepinephrine drip at 21 mcg/per minute for some hypotension he developed throughout the evening. Current blood pressure is 114/48 mmHg. The patient is awake, alert and oriented 3. He is complaining of some abdominal distention and tenderness with and without palpation of his abdomen. He remains afebrile and his current temperature is 97.6F. His laboratory results this morning show his WBC count trending up at 29.1, hemoglobin 6.8, positive bandemia with a band count of 6, BUN 91 and creatinine 2.54. Lactic acid result remains pending. This morning's ABG results show a pH of 7.29, pCO2 51, pO2 82, HCO3 25, oxygen saturation 96.2 and base excess -1.8. Bowel sounds are absent this morning, NG tube remains in place to low intermittent wall suction with 300 mL of bile-colored drainage in the last 8 hours. TPN remains infusing at 75 mL per hour and he remains on amiodarone drip for atrial fibrillation prophylaxis. Bedside telemetry showing atrial fibrillation heart rate 98 BPM. Remains on Zosyn for antibiotic coverage which is managed by pulmonary for/critical care medicine. He did have a positive sputum culture showing Pseudomonas fluorescens/putida on 07/24/2020. Objective - Vital Signs Vital signs: Vital Signs Temp 98.6 F 08/02/20 04:00 Pulse 112 H 08/02/20 08:52 Resp 66 H 08/02/20 08:00 BP 117/70 08/02/20 08:00 Pulse Ox 91 L 08/02/20 08:00 Intake & Output 08/01/20 08/02/20 08/02/20 18:59 06:59 18:59 Intake Total 5220.640 3729.101 360.593 Output Total 1080 700 55 Balance 235.484 955.101 305.593 Weight 112.1 kg 98.9 kg Intake: IV 1020 1072 182 Piperacillin-Tazobactam 3 100 100 .375 gm In Sodium Chloride 0.9% 100 ml @ 25 mls/hr IVPB Q8HR [facility] Rx# :[id number] Sodium Chloride 0.9% 1, 50 20 000 ml @ 20 mls/hr IV . Q24H [facility] Rx#:[id number] TPN 801 900 150 pressure bag 69 72 12 Intake, IV Titration 295.484 343.101 178.593 Amount Amiodarone 300 mg In 250 Dextrose 5% in Water 250 ml @ 0.5 MG/MIN 25 mls/hr IV .Q10H [facility] Rx#: [id number] Amiodarone 300 mg In 220.833 Dextrose 5% in Water 250 ml @ 0.5 MG/MIN 25 mls/hr IV .Q10H [facility] Rx#: [id number] Insulin Regular 100 unit 45.484 In Sodium Chloride 0.9% 100 ml @ Per Protocol IV .Q0M [facility] Rx#:[id number] Norepinephrine 8 mg In 122.268 178.593 Sodium Chloride 0.9% 250 ml @ 0.05 MCG/KG/MIN 10. 846 mls/hr IV .[id number] [facility] Rx#:[id number] Tube Feeding 120 Other 120 Output: Gastric Drainage 250 Urine 1080 450 55 Other: Voiding Method Indwelling Catheter Indwelling Catheter ABP, PAP, CO, CI - Last Documented Arterial Blood Pressure 116/46 Pulmonary Artery Pressure 33/14 Cardiac Output 6.7 Cardiac Index 3.1 - Constitutional General appearance: Present: cooperative, no acute distress, obese - EENT Eyes: Present: normal appearance. Absent: scleral icterus ENT: Present: hearing grossly normal - Neck Details: Neck is supple, right IJ triple lumen catheter remains in place with continuous CVP monitoring. - Respiratory Details: Lung sounds with essentially clear throughout, diminished to his bilateral bases. No wheezes or crackles. Respirations are symmetrical and tachypneic with respirations in the 30s with BiPAP support. Oxygen saturation is 92% on 35% FiO2 BiPAP support. - Cardiovascular Details: Irregular rhythm and controlled rate. S1 and S2 present, negative for S3, gallop or murmur. Sternum is stable. Bedside telemetry showing atrial fibrillation heart rate 98 BPM. Norepinephrine drip at 21 mcg/m. Amiodarone drip at 0.5 mg/m. Right IJ triple-lumen catheter in place with continuous CVP monitoring, current CVP pressure is 10 mmHg. +1 generalized edema. Heart hugger is in place. Knee-high ALPHONSO hose and sequential compression devices in place his bilateral lower extremities. - Gastrointestinal Gastrointestinal Comment(s): Abdomen is soft, distended and tender to palpate. No bowel sounds heard this time. NG tube remains in place to low intermittent wall suction with bile colored drainage 300 mL output in the last 12 hours. - Genitourinary Genitourinary Comment(s): Villafana catheter for accurate I&O. Draining clear danilo urine. 175 mL of urine output in the last 8 hours. - Integumentary Integumentary Comment(s): Skin is warm and dry. No clubbing or cyanosis is present. Midline sternal incision is clean, dry and approximated. No drainage or redness is present. Right lower extremity EVH sites are clean, dry and approximated. No drainage or redness is present. Midline abdominal incision is clean, dry and approximated, eliecer in place.. Scant serosanguineous drainage from the distal abdominal incision. Erythema to his right shoulder area. - Neurologic Neurologic: Present: CNII-XII intact - Musculoskeletal Musculoskeletal: Present: generalized weakness, strength equal bilaterally - Psychiatric Psychiatric Comment(s): Flat affect. Psychiatric: Present: A&O x's 3, intact judgment & insight - Allied health notes Allied health notes reviewed: nursing - Labs CBC & Chem 7: 08/02/20 05:36 08/02/20 05:36 Labs: Abnormal Lab Results - Last 24 Hours (Table) 08/01/20 08/01/20 08/01/20 Range/Units 09:35 09:35 09:37 WBC (3.8-10.6) k/uL RBC (4.30-5.90) m/uL Hgb (13.0-17.5) gm/dL Hct (39.0-53.0) % RDW (11.5-15.5) % Neutrophils # (Manual) (1.3-7.7) k/uL Monocytes # (Manual) (0-1.0) k/uL Metamyelocytes # (Man) (0) k/uL Myelocytes # (Manual) (0) k/uL Nucleated RBCs (0-0) /100 WBC PT (9.0-12.0) sec INR (<1.2) ABG pH (7.35-7.45) ABG pCO2 (35-45) mmHg ABG pO2 (83-108) mmHg ABG Total CO2 (19-24) mmol/L ABG O2 Saturation (94-97) % Sodium (137-145) mmol/L BUN (9-20) mg/dL Creatinine (0.66-1.25) mg/dL Glucose (74-99) mg/dL POC Glucose (mg/dL) 126 H (75-99) mg/dL Calcium (8.4-10.2) mg/dL Phosphorus (2.5-4.5) mg/dL Iron 38 L 38 L (65-175) ug/dL TIBC 203 L (228-460) ug/dL Ferritin 833.9 H (22.0-322.0) ng/mL Albumin 2.4 L (3.5-5.0) g/dL Crossmatch 08/01/20 08/01/20 08/01/20 Range/Units 14:08 18:12 23:42 WBC (3.8-10.6) k/uL RBC (4.30-5.90) m/uL Hgb (13.0-17.5) gm/dL Hct (39.0-53.0) % RDW (11.5-15.5) % Neutrophils # (Manual) (1.3-7.7) k/uL Monocytes # (Manual) (0-1.0) k/uL Metamyelocytes # (Man) (0) k/uL Myelocytes # (Manual) (0) k/uL Nucleated RBCs (0-0) /100 WBC PT (9.0-12.0) sec INR (<1.2) ABG pH (7.35-7.45) ABG pCO2 (35-45) mmHg ABG pO2 (83-108) mmHg ABG Total CO2 (19-24) mmol/L ABG O2 Saturation (94-97) % Sodium (137-145) mmol/L BUN (9-20) mg/dL Creatinine (0.66-1.25) mg/dL Glucose (74-99) mg/dL POC Glucose (mg/dL) 128 H 185 H 205 H (75-99) mg/dL Calcium (8.4-10.2) mg/dL Phosphorus (2.5-4.5) mg/dL Iron (65-175) ug/dL TIBC (228-460) ug/dL Ferritin (22.0-322.0) ng/mL Albumin (3.5-5.0) g/dL Crossmatch 08/02/20 08/02/20 08/02/20 Range/Units 05:31 05:36 05:36 WBC 29.1 H (3.8-10.6) k/uL RBC 2.16 L (4.30-5.90) m/uL Hgb 6.8 L* (13.0-17.5) gm/dL Hct 21.3 L (39.0-53.0) % RDW 17.5 H (11.5-15.5) % Neutrophils # (Manual) 25.00 H (1.3-7.7) k/uL Monocytes # (Manual) 2.33 H (0-1.0) k/uL Metamyelocytes # (Man) 1.46 H (0) k/uL Myelocytes # (Manual) 0.58 H (0) k/uL Nucleated RBCs 1 H (0-0) /100 WBC PT (9.0-12.0) sec INR (<1.2) ABG pH (7.35-7.45) ABG pCO2 (35-45) mmHg ABG pO2 (83-108) mmHg ABG Total CO2 (19-24) mmol/L ABG O2 Saturation (94-97) % Sodium 135 L (137-145) mmol/L BUN 91 H (9-20) mg/dL Creatinine 2.54 H (0.66-1.25) mg/dL Glucose 177 H (74-99) mg/dL POC Glucose (mg/dL) 197 H (75-99) mg/dL Calcium 8.3 L (8.4-10.2) mg/dL Phosphorus 6.5 H (2.5-4.5) mg/dL Iron (65-175) ug/dL TIBC (228-460) ug/dL Ferritin (22.0-322.0) ng/mL Albumin (3.5-5.0) g/dL Crossmatch 08/02/20 08/02/20 08/02/20 Range/Units 05:36 07:30 07:55 WBC (3.8-10.6) k/uL RBC (4.30-5.90) m/uL Hgb (13.0-17.5) gm/dL Hct (39.0-53.0) % RDW (11.5-15.5) % Neutrophils # (Manual) (1.3-7.7) k/uL Monocytes # (Manual) (0-1.0) k/uL Metamyelocytes # (Man) (0) k/uL Myelocytes # (Manual) (0) k/uL Nucleated RBCs (0-0) /100 WBC PT 13.0 H (9.0-12.0) sec INR 1.3 H (<1.2) ABG pH 7.29 L (7.35-7.45) ABG pCO2 51 H (35-45) mmHg ABG pO2 82 L (83-108) mmHg ABG Total CO2 26 H (19-24) mmol/L ABG O2 Saturation (94-97) % Sodium (137-145) mmol/L BUN (9-20) mg/dL Creatinine (0.66-1.25) mg/dL Glucose (74-99) mg/dL POC Glucose (mg/dL) (75-99) mg/dL Calcium (8.4-10.2) mg/dL Phosphorus (2.5-4.5) mg/dL Iron (65-175) ug/dL TIBC (228-460) ug/dL Ferritin (22.0-322.0) ng/mL Albumin (3.5-5.0) g/dL Crossmatch See Detail 08/02/20 08/02/20 Range/Units 08:28 08:46 WBC (3.8-10.6) k/uL RBC (4.30-5.90) m/uL Hgb (13.0-17.5) gm/dL Hct (39.0-53.0) % RDW (11.5-15.5) % Neutrophils # (Manual) (1.3-7.7) k/uL Monocytes # (Manual) (0-1.0) k/uL Metamyelocytes # (Man) (0) k/uL Myelocytes # (Manual) (0) k/uL Nucleated RBCs (0-0) /100 WBC PT (9.0-12.0) sec INR (<1.2) ABG pH 7.28 L (7.35-7.45) ABG pCO2 52 H (35-45) mmHg ABG pO2 292 H (83-108) mmHg ABG Total CO2 26 H (19-24) mmol/L ABG O2 Saturation 100.0 H (94-97) % Sodium (137-145) mmol/L BUN (9-20) mg/dL Creatinine (0.66-1.25) mg/dL Glucose (74-99) mg/dL POC Glucose (mg/dL) 187 H (75-99) mg/dL Calcium (8.4-10.2) mg/dL Phosphorus (2.5-4.5) mg/dL Iron (65-175) ug/dL TIBC (228-460) ug/dL Ferritin (22.0-322.0) ng/mL Albumin (3.5-5.0) g/dL Crossmatch - Imaging and Cardiology Chest x-ray: report reviewed, image reviewed Assessment and Plan Assessment: 1. Heavily calcified symptomatic triple-vessel coronary artery disease, status post 2 vessel coronary artery bypass grafting surgery 2. History of coronary artery disease with stent placement to his right coronary artery in 2002 3. Mild left ventricular dysfunction 4. History of hypertension 5. History of hyperlipidemia 6. Hypothyroid status post partial thyroidectomy 7. Chronic obstructive pulmonary disease with preoperative FEV1 53% of predicted value 8. Remote history of tobacco dependence quit smoking 20 years ago 9. Acute on chronic kidney disease stage III with a baseline creatinine of 1.4- 1.5 10. Diabetes mellitus type 2 with a preoperative hemoglobin A1c 5.2% 11. Postoperative acute blood loss anemia, expected 12. Postoperative paroxysmal atrial fibrillation, unexpected 13. Remote history of pneumonia 14. Postoperative paroxysmal atrial fibrillation, unexpected, status post exclusion of the left atrial appendage 15. Pneumoperitoneum, unexpected 16. Pneumatosis of the small bowel, ischemic bowel, status post resection of the small bowel 17. Positive sputum culture for pseudomonas fluorescens 18. Postoperative prolonged mechanical ventilation 19. Acute hypoxic respiratory failure requiring reintubation, unexpected 20. Postoperative hypotension requiring initiation of norepinephrine drip, unexpected Plan: 1. Continue low dose aspirin, low-dose beta apolinar. We will increase metoprolol tartrate as tolerated. 2. Continue IV amiodarone for atrial fibrillation prophylaxis. Continue Lovenox. 3. The patient was reintubated at 8:44 AM this morning, mechanical ventilator management per pulmonary critical care management. Bronchodilators, inhaled steroids per pulmonology management. 4. Continue to monitor daily labs and chest x-rays. Transfuse 2 units of PRBCs for hemoglobin this morning of 6.8. 5. Continue GI/DVT prophylaxis. 6. Pain control with current medication regimen. 7. Insulin management per Dr. Polk. 8. Continue TPN at 75 mL per hour. Discontinue tube feedings. Keep the NG tube to low intermittent wall suction. 9. Nephrology following. Avoid nephrotoxic agents. Continue IV Lasix per their recommendations. 10. Strict accurate intake and output, daily weights. 11. Continue IV Zosyn, day 9. Positive sputum culture for pseudomonas fluorescens on 07/24/2020. 12. Patient's and daughter Corinne were updated on his care and status currently. Patient's is currently at his bedside. 13. The patient is going for a exploratory laparotomy today to be performed by Dr. Dempsey. 14. More recommendations to follow based on patient's clinical course. Time with Patient: Greater than 30
[2020-08-02] MEDS ORDERED: SODIUM CHLORIDE 0.9% 500 ML 500 ML IV ONE (11:08)
[2020-08-02 12:22] LABS: Glucose,Whole Blood 283 mg/dL (75-99)
[2020-08-02] MEDS: LEVOTHYROXINE IVP 100 MCG/5 ML VIAL IV SCH (12:53)
[2020-08-02] MEDS: ENOXAPARIN 100 MG/ML SYRINGE SQ SCH (12:53)
[2020-08-02] MEDS: CHLORHEXIDINE GLUCONATE 15 ML CUP MUCOUS MEM SCH ×2 (12:53→21:31)
[2020-08-02] MEDS: ASPIRIN 81 MG PO SCH (12:53)
[2020-08-02] MEDS: METOPROLOL TARTRATE 12.5 MG TAB NG-TUBE SCH (12:54)
[2020-08-02 12:59] LABS: Anisocytosis Slight; HCT 25.4 % (39.0-53.0); HGB 8.2 gm/dL (13.0-17.5); Hypochromasia Moderate; MCH 30.8 pg (25.0-35.0); MCHC 32.1 g/dL (31.0-37.0); MCV 95.8 fL (80.0-100.0); Macrocytosis Slight; Platelet Count 228 k/uL (150-450); Poikilocytosis Slight; RBC 2.65 m/uL (4.30-5.90); RDW 17.2 % (11.5-15.5); WBC 21.6 k/uL (3.8-10.6)
[2020-08-02] MEDS ORDERED: SODIUM CHLORIDE 0.9% 1,000 ML IV ONE (13:06)
[2020-08-02] MEDS: FUROSEMIDE 10 MG/ML 4 ML VIAL IV SCH (13:07)
[2020-08-02] MEDS: PANTOPRAZOLE 40 MG/10 ML VIAL IVP SCH ×2 (13:14→21:31)
--- NOTE | 2020-08-02 14:44 | P.PN ---
Subjective Progress Note Date: 08/02/20 Principal diagnosis: Status post CABG, postoperative day #14 79-year-old white male patient with past medical history of hypertension, hyperlipidemia, moderate to severe COPD with the baseline FEV1 of 56% of predicted who came in on 07/18/2020 for elective two-vessel bypass grafting with PABLO to LAD, and SVG to the PDA. He was seen in the intensive care unit following surgery, patient was successfully weaned and extubated from mechanical ventilator and under 6 hours following his OR exit, is currently awake and alert, sitting in the chair, he is currently on 2 L of oxygen, his pulse ox is 98%, hemodynamically he stable, blood pressure is 106/51, PA pressures 35/11, CVP is 8, no fever or chills, IV fluids including the 0.9 normal saline at a rate of 30 ML per hour, insulin is 4.5 units per hour, no vasoactive drips. Today's chest x-ray shows a pneumoperitoneum with lucency present underneath the right hemidiaphragm. He has left pleural and mediastinal chest tube, and there has been 500 mL of serosanguineous output from the left pleural and 350 mL from the mediastinal chest tube in the last 24 hours. Is having some mild discomfort under the right rib cage, but no acute distress, abdomen is distended but soft, he is hemodynamically stable, he is in sinus mechanism, no nausea vomiting or diarrhea. CT of the abdomen and pelvis is pending today's labs have been reviewed, showing white blood cell count of 11.9, hemoglobin of 9, sodium is 133, the rest of the electrolytes were within normal limits, B1 is 25 creatinine is 1.18 On 07/21/2020 patient seen in follow-up in the intensive care unit, today is postoperative day 3 status post three-vessel coronary artery bypass grafting, (patient became more short of breath, wheezy, patient has a known history of moderately severe COPD/emphysema, we started him on IV Solu-Medrol, and Pulmicort and Perforomist were added. This morning she remains on 3 L of oxygen his pulse ox is 94-95%, hemodynamically he stable, he just on plan and was seen and rated 20 ML per hour, insulin is a 2.5 units per hour, today's chest x-ray showing slight increased bibasilar atelectasis or infiltrates. He thinks the breathing treatments in the steroids have significantly helped, breathing easier, he is achieving 500-750 on his incentive spirometer, not able to bring up any sputum yet. he is currently sitting up in a chair, in no acute distress, his incisional pain is fairly well-controlled, patient had another episode of A. fib with RVR last night, he is back in sinus rhythm with a controlled rate this morning. He received a dose of Lasix this morning. Chest tubes have been discontinued. On 07/31/2020 patient seen in follow-up in the intensive care unit. He is postoperative day 12 status post three-vessel bypass grafting, and postoperative day #7 status post exploratory laparotomy and small bowel resection, he is awake and alert, he was extubated yesterday to a BiPAP support, this morning he remains on BiPAP, pressures of 10 and 5, and FiO2 of 35%, and his pulse ox is 100%, hemodynamically he stable, he is A. fib on a monitor with a rate of 98 BPM, he is currently on 9.9 normal seen at a rate of 10 ML per hour, insulin is at 2 units per hour, amiodarone at 0.5 mg per hour, heparin is at weight-based protocol, and TPN is a 75 ML per hour. Today's chest x-ray shows a stable portable chest, with bibasilar infiltrates greater on the right. She remains on Lasix at 40 mg every 12 hours, and he is negative fluid balance negative, at - 645 ML over the last 24 hours. No fever or chills, appears to be normally swollen, we will plus edema in lower extremities, his labs have been reviewed, showing white blood cell count 15.1, hemoglobin of 8, sodium of 132, potassium is 3.5, chloride is 100, his BUN is 63, and a creatinine is 1.94, calcitonin is trending down, down to 1.41 from 3.53. He remains on Zosyn or antibiotic coverage for evidence of Pseudomonas in his sputum culture. His NG tube in p lace to low intermittent suction, and there has been about 400 mL of bilious output in the last 24 hours, patient is passing gas but has not had any bowel movement yet. Surgical services are following. Reevaluated today on 08/01/20, patient remains in the ICU, presently on 5 L nasal cannula, was on BiPAP last night. Patient remains on TPN, amiodarone at 0.5 mg/m, he is also on insulin at 4 units per hour. Patient looks frail, he is postoperative day #13 status post CABG, and postoperative day #8 post exploratory laparotomy and small bowel resection. Patient was extubated on , intermittently on BiPAP especially at night. Patient is hemodynamically stable, not requiring any pressors. Remains on diuretics, and his chest x-ray today showed worsening bibasilar infiltrates and small effusions, remain empirically on antibiotics. Patient remains on Zosyn, and his sputum was positive for pseudomonas aeruginosa. WBC count is 17.7 hemoglobin is 7.9. Electrolytes are normal except for slightly low potassium of 3.3, renal profile is about the same as it has been in the last few days, BUN of 69 and creatinine of 1.89. Pro-calcitonin is coming down, it is 1.41 Reevaluated today on 08/02/20, over the last 24 hours, patient's clinical status has been deteriorating, he is developing hypotension requiring norepinephrine presently at 20 mcg/m, patient seems to be complaining of abdominal distention and tenderness, on physical examination his abdomen is quite tender. CBC showed leukocytosis with WBC count of 29.1. Hemoglobin is 6.8, there is positive bandemia noted on the differential. BUN is up to 91 creatinine 2.54, lactic acid is 1.4 this morning. ABG today showed a pO2 of 82 pCO2 of 51 pH of 7.29 patient has absent bowel sounds on examination, and his nasogastric tube continues to have significant drainage with bile colored drainage about 300 mL in the last 8 hours. Patient remains on TPN at 75 ML per hour, and he is also on amiodarone for atrial fibrillation. Rate seems to be controlled with amiodarone. Patient remains on Zosyn for antibiotics coverage. His sputum culture came back positive for Pseudomonas fluorescence. This was from 07/24/20. General surgery was notified about this condition and the patient will undergo expiratory laparotomy again today. This is supposed to be done as soon as possible. Patient was intubated in the ICU by [employer], chest x-ray showed bibasilar atelectasis and small pleural effusions today. His ventilator setti ngs at present are assist control rate of 24 volume is 500 FiO2 is 50% PEEP is 5. ABG post intubation showed a pO2 of 292 pCO2 of 52 pH of 7.28. Hence FiO2 was cut down to 50%. And The vent settings otherwise the same. Objective - Vital Signs Vital signs: Vital Signs Temp 96.6 F L 08/02/20 12:00 Pulse 83 08/02/20 13:30 Resp 24 08/02/20 13:30 BP 98/57 08/02/20 13:15 Pulse Ox 100 08/02/20 13:30 Intake & Output 08/01/20 08/02/20 08/02/20 18:59 06:59 18:59 Intake Total 2478.839 6936.101 3334.903 Output Total 1080 700 380 Balance 235.484 941.994 8667.903 Weight 102.5 kg 98.9 kg 98.9 kg Intake: IV 1020 1072 2071 Piperacillin-Tazobactam 3 100 100 100 .375 gm In Sodium Chloride 0.9% 100 ml @ 25 mls/hr IVPB Q8HR [facility] Rx# :[id number] Sodium Chloride 0.9% 1, 50 80 000 ml @ 20 mls/hr IV . Q24H [facility] Rx#:[id number] Sodium Chloride 0.9% 1, 1000 000 ml @ 999 mls/hr IV . Q1H1M [facility] Rx#:[id number] TPN 801 900 355 pressure bag 69 72 36 Intake, IV Titration 295.484 343.101 333.903 Amount Amiodarone 300 mg In 250 Dextrose 5% in Water 250 ml @ 0.5 MG/MIN 25 mls/hr IV .Q10H [facility] Rx#: [id number] Amiodarone 300 mg In 220.833 Dextrose 5% in Water 250 ml @ 0.5 MG/MIN 25 mls/hr IV .Q10H [facility] Rx#: [id number] Insulin Regular 100 unit 45.484 In Sodium Chloride 0.9% 100 ml @ Per Protocol IV .Q0M [facility] Rx#:[id number] Norepinephrine 8 mg In 122.268 262.338 Sodium Chloride 0.9% 250 ml @ 0.05 MCG/KG/MIN 10. 846 mls/hr IV .[id number] [facility] Rx#:[id number] propofoL 1,000 mg In 71.565 Empty Bag 1 bag @ Titrate IV .Q0M [facility] Rx#: [id number] Tube Feeding 120 Blood Product 930 Rc As-1 Unit 310 [id number] Rc As-1 Unit 310 [id number] Other 120 Output: Gastric Drainage 250 Urine 1080 450 280 Emesis 0 Estimated Blood Loss 100 Other: Voiding Method Indwelling Catheter Indwelling Catheter Indwelling Catheter ABP, PAP, CO, CI - Last Documented Arterial Blood Pressure 104/46 Pulmonary Artery Pressure 33/14 Cardiac Output 6.7 Cardiac Index 3.1 - Exam GENERAL EXAM: [age]-year-old intubated mechanically ventilated, sedated, in no distress.. HEAD: Normocephalic/atraumatic. The tracheal tube is intact ENT: PERRLA, EOMI, no icterus, no neck masses, no JVD, no stridor. CHEST: No chest wall deformity. Symmetrical expansion. Sternal incision is clean dry and intact, chest tube sites clean dry and intact LUNGS: Equal air entry fine crackles at the base. CVS: irregular rate and rhythm, normal S1 and S2, no gallops, no murmurs, no rubs ABDOMEN: Distended abdomen, tenderness on palpation, no bowel sounds. Abdominal incision is clean. Significant bilious drainage noted from the nasogastric tube. EXTREMITIES: Trace of edema no clubbing no cyanosis. Pulses bilaterally.. MUSCULOSKELETAL: Could not assess, patient was generally weak. SKIN: No rashes CENTRAL NERVOUS SYSTEM: Not assessed, patient is intubated and mechanically ventilated. - Labs CBC & Chem 7: 08/02/20 12:23 08/02/20 05:36 Labs: Abnormal Lab Results - Last 24 Hours (Table) 08/01/20 08/01/20 08/01/20 Range/Units 09:35 09:35 18:12 WBC (3.8-10.6) k/uL RBC (4.30-5.90) m/uL Hgb (13.0-17.5) gm/dL Hct (39.0-53.0) % RDW (11.5-15.5) % Neutrophils # (Manual) (1.3-7.7) k/uL Monocytes # (Manual) (0-1.0) k/uL Metamyelocytes # (Man) (0) k/uL Myelocytes # (Manual) (0) k/uL Nucleated RBCs (0-0) /100 WBC PT (9.0-12.0) sec INR (<1.2) ABG pH (7.35-7.45) ABG pCO2 (35-45) mmHg ABG pO2 (83-108) mmHg ABG Total CO2 (19-24) mmol/L ABG O2 Saturation (94-97) % Sodium (137-145) mmol/L BUN (9-20) mg/dL Creatinine (0.66-1.25) mg/dL Glucose (74-99) mg/dL POC Glucose (mg/dL) 185 H (75-99) mg/dL Calcium (8.4-10.2) mg/dL Phosphorus (2.5-4.5) mg/dL Iron 38 L 38 L (65-175) ug/dL TIBC 203 L (228-460) ug/dL Ferritin 833.9 H (22.0-322.0) ng/mL Crossmatch 08/01/20 08/02/20 08/02/20 Range/Units 23:42 05:31 05:36 WBC (3.8-10.6) k/uL RBC (4.30-5.90) m/uL Hgb (13.0-17.5) gm/dL Hct (39.0-53.0) % RDW (11.5-15.5) % Neutrophils # (Manual) (1.3-7.7) k/uL Monocytes # (Manual) (0-1.0) k/uL Metamyelocytes # (Man) (0) k/uL Myelocytes # (Manual) (0) k/uL Nucleated RBCs (0-0) /100 WBC PT (9.0-12.0) sec INR (<1.2) ABG pH (7.35-7.45) ABG pCO2 (35-45) mmHg ABG pO2 (83-108) mmHg ABG Total CO2 (19-24) mmol/L ABG O2 Saturation (94-97) % Sodium 135 L (137-145) mmol/L BUN 91 H (9-20) mg/dL Creatinine 2.54 H (0.66-1.25) mg/dL Glucose 177 H (74-99) mg/dL POC Glucose (mg/dL) 205 H 197 H (75-99) mg/dL Calcium 8.3 L (8.4-10.2) mg/dL Phosphorus 6.5 H (2.5-4.5) mg/dL Iron (65-175) ug/dL TIBC (228-460) ug/dL Ferritin (22.0-322.0) ng/mL Crossmatch 08/02/20 08/02/20 08/02/20 Range/Units 05:36 05:36 07:30 WBC 29.1 H (3.8-10.6) k/uL RBC 2.16 L (4.30-5.90) m/uL Hgb 6.8 L* (13.0-17.5) gm/dL Hct 21.3 L (39.0-53.0) % RDW 17.5 H (11.5-15.5) % Neutrophils # (Manual) 25.00 H (1.3-7.7) k/uL Monocytes # (Manual) 2.33 H (0-1.0) k/uL Metamyelocytes # (Man) 1.46 H (0) k/uL Myelocytes # (Manual) 0.58 H (0) k/uL Nucleated RBCs 1 H (0-0) /100 WBC PT 13.0 H (9.0-12.0) sec INR 1.3 H (<1.2) ABG pH 7.29 L (7.35-7.45) ABG pCO2 51 H (35-45) mmHg ABG pO2 82 L (83-108) mmHg ABG Total CO2 26 H (19-24) mmol/L ABG O2 Saturation (94-97) % Sodium (137-145) mmol/L BUN (9-20) mg/dL Creatinine (0.66-1.25) mg/dL Glucose (74-99) mg/dL POC Glucose (mg/dL) (75-99) mg/dL Calcium (8.4-10.2) mg/dL Phosphorus (2.5-4.5) mg/dL Iron (65-175) ug/dL TIBC (228-460) ug/dL Ferritin (22.0-322.0) ng/mL Crossmatch 08/02/20 08/02/20 08/02/20 Range/Units 07:55 08:28 08:46 WBC (3.8-10.6) k/uL RBC (4.30-5.90) m/uL Hgb (13.0-17.5) gm/dL Hct (39.0-53.0) % RDW (11.5-15.5) % Neutrophils # (Manual) (1.3-7.7) k/uL Monocytes # (Manual) (0-1.0) k/uL Metamyelocytes # (Man) (0) k/uL Myelocytes # (Manual) (0) k/uL Nucleated RBCs (0-0) /100 WBC PT (9.0-12.0) sec INR (<1.2) ABG pH 7.28 L (7.35-7.45) ABG pCO2 52 H (35-45) mmHg ABG pO2 292 H (83-108) mmHg ABG Total CO2 26 H (19-24) mmol/L ABG O2 Saturation 100.0 H (94-97) % Sodium (137-145) mmol/L BUN (9-20) mg/dL Creatinine (0.66-1.25) mg/dL Glucose (74-99) mg/dL POC Glucose (mg/dL) 187 H (75-99) mg/dL Calcium (8.4-10.2) mg/dL Phosphorus (2.5-4.5) mg/dL Iron (65-175) ug/dL TIBC (228-460) ug/dL Ferritin (22.0-322.0) ng/mL Crossmatch See Detail 08/02/20 08/02/20 Range/Units 12:21 12:23 WBC 21.6 H (3.8-10.6) k/uL RBC 2.65 L (4.30-5.90) m/uL Hgb 8.2 L (13.0-17.5) gm/dL Hct 25.4 L (39.0-53.0) % RDW 17.2 H (11.5-15.5) % Neutrophils # (Manual) (1.3-7.7) k/uL Monocytes # (Manual) (0-1.0) k/uL Metamyelocytes # (Man) (0) k/uL Myelocytes # (Manual) (0) k/uL Nucleated RBCs (0-0) /100 WBC PT (9.0-12.0) sec INR (<1.2) ABG pH (7.35-7.45) ABG pCO2 (35-45) mmHg ABG pO2 (83-108) mmHg ABG Total CO2 (19-24) mmol/L ABG O2 Saturation (94-97) % Sodium (137-145) mmol/L BUN (9-20) mg/dL Creatinine (0.66-1.25) mg/dL Glucose (74-99) mg/dL POC Glucose (mg/dL) 283 H (75-99) mg/dL Calcium (8.4-10.2) mg/dL Phosphorus (2.5-4.5) mg/dL Iron (65-175) ug/dL TIBC (228-460) ug/dL Ferritin (22.0-322.0) ng/mL Crossmatch Assessment and Plan Assessment: #1. Symptomatic coronary artery disease, status post two-vessel coronary artery bypass grafting with PABLO to the LAD, SVG to the PDA, postoperative day #14 #2. Postoperative atrial fibrillation with rapid ventricular response requiring amiodarone and metoprolol, currently on heparin for anticoagulation #3. Acute ischemic small bowel, pneumatosis, status post exploratory laparotomy and small bowel resection, on 07/24/2020, today is postoperative day #9 #4. Acute hypoxic respiratory failure following bowel surgery, patient was extubated on 07/30/2022 BiPAP at night, and nasal cannula during the day. #5. Small atelectatic/pleural effusions involving both lung bases in addition to a small to moderate bilateral pleural effusion cannot rule out underlying infiltrate. Certainly secondary to Pseudomonas. #6. Evidence of Pseudomonas in the sputum culture, patient is covered with Zosyn for antibiotic coverage #7. History of coronary artery disease with previous stent placement #8. History of hypertension #9. History of hyperlipidemia #10. Acute on chronic kidney injury. #11. COPD moderate to severe with preop FEV1 of 53% of predicted #12. 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 Chronic kidney disease stage III at baseline #14. Diabetes mellitus type 2 #15. Postoperative acute blood loss anemia, expected outcome of open heart surgery #16. Postoperative paroxysmal A. fib, patient has had 2 episodes of A. fib with RVR in the postoperative period #17. Hypothyroidism status post partial thyroidectomy #18. Acute surgical abdomen on 08/02/20, hence the patient will be requiring exploratory laparotomy and this is to be addressed by surgery on the case in the next half hour. Recommendation: Agree with expiratory laparotomy. Continue same ventilator settings. Continue Zosyn. Continue present supportive care measures Continue TPN. Continue low-dose aspirin and beta blockers. Continue amiodarone. Continue GI and DVT prophylaxis. Prognosis is definitely poor and guarded. We'll continue to follow. Critical care time is over 30 minutes Time with Patient: Greater than 30
--- NOTE | 2020-08-02 15:17 | P.PN ---
Subjective Progress Note Date: 08/02/20 Patient seen and examined at bedside. Patient is sedated. Patient responds to pain. Patient remains on the vent. Patient underwent an exploratory laparotomy earlier today for ischemic bowel. Objective - Vital Signs Vital signs: Vital Signs Temp 96.6 F L 08/02/20 12:00 Pulse 83 08/02/20 13:30 Resp 24 08/02/20 13:30 BP 98/57 08/02/20 13:15 Pulse Ox 100 08/02/20 13:30 Intake & Output 08/01/20 08/02/20 08/02/20 18:59 06:59 18:59 Intake Total 9125.473 9174.101 3334.903 Output Total 1080 700 380 Balance 235.484 674.228 4264.903 Weight 102.5 kg 98.9 kg 98.9 kg Intake: IV 1020 1072 2071 Piperacillin-Tazobactam 3 100 100 100 .375 gm In Sodium Chloride 0.9% 100 ml @ 25 mls/hr IVPB Q8HR [facility] Rx# :[id number] Sodium Chloride 0.9% 1, 50 80 000 ml @ 20 mls/hr IV . Q24H [facility] Rx#:[id number] Sodium Chloride 0.9% 1, 1000 000 ml @ 999 mls/hr IV . Q1H1M [facility] Rx#:[id number] TPN 801 900 355 pressure bag 69 72 36 Intake, IV Titration 295.484 343.101 333.903 Amount Amiodarone 300 mg In 250 Dextrose 5% in Water 250 ml @ 0.5 MG/MIN 25 mls/hr IV .Q10H [facility] Rx#: [id number] Amiodarone 300 mg In 220.833 Dextrose 5% in Water 250 ml @ 0.5 MG/MIN 25 mls/hr IV .Q10H [facility] Rx#: [id number] Insulin Regular 100 unit 45.484 In Sodium Chloride 0.9% 100 ml @ Per Protocol IV .Q0M [facility] Rx#:[id number] Norepinephrine 8 mg In 122.268 262.338 Sodium Chloride 0.9% 250 ml @ 0.05 MCG/KG/MIN 10. 846 mls/hr IV .O07S05L [facility] Rx#:[id number] propofoL 1,000 mg In 71.565 Empty Bag 1 bag @ Titrate IV .Q0M [facility] Rx#: [id number] Tube Feeding 120 Blood Product 930 Rc As-1 Unit 310 [id number] Rc As-1 Unit 310 [id number] Other 120 Output: Gastric Drainage 250 Urine 1080 450 280 Emesis 0 Estimated Blood Loss 100 Other: Voiding Method Indwelling Catheter Indwelling Catheter Indwelling Catheter ABP, PAP, CO, CI - Last Documented Arterial Blood Pressure 104/46 Pulmonary Artery Pressure 33/14 Cardiac Output 6.7 Cardiac Index 3.1 - Exam General: [toxic], [no distress], [appears at stated age] Derm: [warm], [dry] Head: [atraumatic], [normocephalic], [symmetric] Eyes: [EOMI], [no lid lag], [anicteric sclera] Mouth: [no lip lesion], [mucus membranes moist] Cardiovascular: [S1S2 reg], [no murmur], [positive posterior tibial pulse bilateral], Lungs: [CTA bilateral], [no rhonchi, no rales] , [no accessory muscle use] Abdominal: [soft], [ nontender to palpation], [no guarding], [no appreciable organomegaly] Ext: [no gross muscle atrophy], [no edema], [no contractures] Neuro: [ CN II-XI grossly intact], [no focal neuro deficits] Psych: Sedated - Constitutional Constitutional Comment(s): A 14 point review of systems was unable to be assessed secondary to sedation - Labs CBC & Chem 7: 08/02/20 12:23 08/02/20 05:36 Labs: Abnormal Lab Results - Last 24 Hours (Table) 08/01/20 08/01/20 08/01/20 Range/Units 09:35 09:35 18:12 WBC (3.8-10.6) k/uL RBC (4.30-5.90) m/uL Hgb (13.0-17.5) gm/dL Hct (39.0-53.0) % RDW (11.5-15.5) % Neutrophils # (Manual) (1.3-7.7) k/uL Monocytes # (Manual) (0-1.0) k/uL Metamyelocytes # (Man) (0) k/uL Myelocytes # (Manual) (0) k/uL Nucleated RBCs (0-0) /100 WBC PT (9.0-12.0) sec INR (<1.2) ABG pH (7.35-7.45) ABG pCO2 (35-45) mmHg ABG pO2 (83-108) mmHg ABG Total CO2 (19-24) mmol/L ABG O2 Saturation (94-97) % Sodium (137-145) mmol/L BUN (9-20) mg/dL Creatinine (0.66-1.25) mg/dL Glucose (74-99) mg/dL POC Glucose (mg/dL) 185 H (75-99) mg/dL Calcium (8.4-10.2) mg/dL Phosphorus (2.5-4.5) mg/dL Iron 38 L 38 L (65-175) ug/dL TIBC 203 L (228-460) ug/dL Ferritin 833.9 H (22.0-322.0) ng/mL Crossmatch 08/01/20 08/02/20 08/02/20 Range/Units 23:42 05:31 05:36 WBC (3.8-10.6) k/uL RBC (4.30-5.90) m/uL Hgb (13.0-17.5) gm/dL Hct (39.0-53.0) % RDW (11.5-15.5) % Neutrophils # (Manual) (1.3-7.7) k/uL Monocytes # (Manual) (0-1.0) k/uL Metamyelocytes # (Man) (0) k/uL Myelocytes # (Manual) (0) k/uL Nucleated RBCs (0-0) /100 WBC PT (9.0-12.0) sec INR (<1.2) ABG pH (7.35-7.45) ABG pCO2 (35-45) mmHg ABG pO2 (83-108) mmHg ABG Total CO2 (19-24) mmol/L ABG O2 Saturation (94-97) % Sodium 135 L (137-145) mmol/L BUN 91 H (9-20) mg/dL Creatinine 2.54 H (0.66-1.25) mg/dL Glucose 177 H (74-99) mg/dL POC Glucose (mg/dL) 205 H 197 H (75-99) mg/dL Calcium 8.3 L (8.4-10.2) mg/dL Phosphorus 6.5 H (2.5-4.5) mg/dL Iron (65-175) ug/dL TIBC (228-460) ug/dL Ferritin (22.0-322.0) ng/mL Crossmatch 08/02/20 08/02/20 08/02/20 Range/Units 05:36 05:36 07:30 WBC 29.1 H (3.8-10.6) k/uL RBC 2.16 L (4.30-5.90) m/uL Hgb 6.8 L* (13.0-17.5) gm/dL Hct 21.3 L (39.0-53.0) % RDW 17.5 H (11.5-15.5) % Neutrophils # (Manual) 25.00 H (1.3-7.7) k/uL Monocytes # (Manual) 2.33 H (0-1.0) k/uL Metamyelocytes # (Man) 1.46 H (0) k/uL Myelocytes # (Manual) 0.58 H (0) k/uL Nucleated RBCs 1 H (0-0) /100 WBC PT 13.0 H (9.0-12.0) sec INR 1.3 H (<1.2) ABG pH 7.29 L (7.35-7.45) ABG pCO2 51 H (35-45) mmHg ABG pO2 82 L (83-108) mmHg ABG Total CO2 26 H (19-24) mmol/L ABG O2 Saturation (94-97) % Sodium (137-145) mmol/L BUN (9-20) mg/dL Creatinine (0.66-1.25) mg/dL Glucose (74-99) mg/dL POC Glucose (mg/dL) (75-99) mg/dL Calcium (8.4-10.2) mg/dL Phosphorus (2.5-4.5) mg/dL Iron (65-175) ug/dL TIBC (228-460) ug/dL Ferritin (22.0-322.0) ng/mL Crossmatch 08/02/20 08/02/20 08/02/20 Range/Units 07:55 08:28 08:46 WBC (3.8-10.6) k/uL RBC (4.30-5.90) m/uL Hgb (13.0-17.5) gm/dL Hct (39.0-53.0) % RDW (11.5-15.5) % Neutrophils # (Manual) (1.3-7.7) k/uL Monocytes # (Manual) (0-1.0) k/uL Metamyelocytes # (Man) (0) k/uL Myelocytes # (Manual) (0) k/uL Nucleated RBCs (0-0) /100 WBC PT (9.0-12.0) sec INR (<1.2) ABG pH 7.28 L (7.35-7.45) ABG pCO2 52 H (35-45) mmHg ABG pO2 292 H (83-108) mmHg ABG Total CO2 26 H (19-24) mmol/L ABG O2 Saturation 100.0 H (94-97) % Sodium (137-145) mmol/L BUN (9-20) mg/dL Creatinine (0.66-1.25) mg/dL Glucose (74-99) mg/dL POC Glucose (mg/dL) 187 H (75-99) mg/dL Calcium (8.4-10.2) mg/dL Phosphorus (2.5-4.5) mg/dL Iron (65-175) ug/dL TIBC (228-460) ug/dL Ferritin (22.0-322.0) ng/mL Crossmatch See Detail 08/02/20 08/02/20 Range/Units 12:21 12:23 WBC 21.6 H (3.8-10.6) k/uL RBC 2.65 L (4.30-5.90) m/uL Hgb 8.2 L (13.0-17.5) gm/dL Hct 25.4 L (39.0-53.0) % RDW 17.2 H (11.5-15.5) % Neutrophils # (Manual) (1.3-7.7) k/uL Monocytes # (Manual) (0-1.0) k/uL Metamyelocytes # (Man) (0) k/uL Myelocytes # (Manual) (0) k/uL Nucleated RBCs (0-0) /100 WBC PT (9.0-12.0) sec INR (<1.2) ABG pH (7.35-7.45) ABG pCO2 (35-45) mmHg ABG pO2 (83-108) mmHg ABG Total CO2 (19-24) mmol/L ABG O2 Saturation (94-97) % Sodium (137-145) mmol/L BUN (9-20) mg/dL Creatinine (0.66-1.25) mg/dL Glucose (74-99) mg/dL POC Glucose (mg/dL) 283 H (75-99) mg/dL Calcium (8.4-10.2) mg/dL Phosphorus (2.5-4.5) mg/dL Iron (65-175) ug/dL TIBC (228-460) ug/dL Ferritin (22.0-322.0) ng/mL Crossmatch Assessment and Plan Assessment: 80 year old male with past medical history noted below who presented for symptomatic CAD and underwent 2v CABG with post-operative course complicated by respiratory failure secondary to COPD exacerbation, blood loss anemia, paroxysmal atrial fibrillation with RVR, metabolic derangements, and ischemic bowel. Patient underwent exploratory lap earlier today. 1. CAD s/p CABG with 2v bypass, PABLO to LAD, and SVG to posterior decending coronary artery 2. Paroxysmal Atrial Fibrillation, with RVR 3. 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 Pneumatosis, Ischemic Bowel, s/p small bowel resection 5. Acute Blood Loss Anemia, post-operative, resolved 6. Pneumoperitoneum secondary to chest tubes, resolving 7. CONNOR superimposed on CKD, stage III, worsening 8. Hypertension, essential 9. Hyperlipidemia 10. Type II DM, uncontrolled 11. Hypothyroidism 12. Obesity, BMI 30.5 13. Hyponatremia and Hyperkalemia DM 2 - Currently on insulin drip - A1C from 06/21/2020 5.2, anticipate discharge home back on metformin which may be able to come off in the near future in the outpatient setting. Small Bowel Ischemia - s/p resection - Finished 7 days course of IV Zosyn A-fib with RVR On amio and eliquis On metoprolol BID CONNOR on CKD stage III Baseline cr 1.4-1.5 Likely cardiorenal syndrome, patient received contrast earlier in the admission. Avoid nephrotoxic meds Nephrology is following Pneumoperitoneum suspect secondary to mediastinal chest tubes -Tube d/melody -Resolved. COPD with acute exacerbation - On DuoNeb schedule Coronary artery disease -Status post coronary artery bypass grafting -Cardiothoracic and cardiology following HTN - meds per CT surgery - follow BP Hypothyroidism status post partial thyroidectomy - synthroid Morbid obesity with BMI 30.5 -Outpatient structured weight loss Prognosis is poor
[2020-08-02 16:07] LABS: ABG HCO3 22 mmol/L (21-25); ABG Oxygen Saturation 96.7 % (94-97); ABG PCO2 44 mmHg (35-45); ABG PO2 82 mmHg (83-108); ABG TCO2 23 mmol/L (19-24); Allen Test Performed? Yes
[2020-08-02] MEDS ORDERED: SODIUM BICARB 8.4% 50 ML SYR (1 MEQ/ML) IV STA (16:19)
[2020-08-02] MEDS ORDERED: CALCIUM GLUCONATE 1 GM in SODIUM CHLORIDE 0.9% 100 ML IVPB ONE (17:00)
[2020-08-02 17:03] LABS: Glucose,Whole Blood 281 mg/dL (75-99)
[2020-08-02] MEDS ORDERED: INSULIN DETEMIR (LEVEMIR) 100 UNIT/ML SYR SQ STA (17:17)
[2020-08-02] MEDS: INSULIN DETEMIR (LEVEMIR) 100 UNIT/ML SYR SQ SCH (17:19)
[2020-08-02] MEDS ORDERED: ALBUMIN HUMAN 5% 500 ML in EMPTY BAG 1 BAG IVPB ONE (17:30)
--- NOTE | 2020-08-02 18:15 | P.OP ---
Date of Procedure: 08/02/20 Preoperative Diagnosis: Acute abdomen Postoperative Diagnosis: Intraperitoneal hemorrhage Procedure(s) Performed: Exploratory laparotomy Washout of peritoneal cavity Ileostomy with small bowel resection Anesthesia: ENEIDA Surgeon: Anjel Dempsey Estimated Blood Loss (ml): 50 Pathology: other (Terminal ileum) Condition: critical Disposition: ICU Description of Procedure: The patient's placed on the operative table in supine position. He received general anesthesia. His abdomen was prepped and draped in sterile fashion. The eliecer removed. The skin incision was opened. And then the fascial suture was cut. The fascia was opened. There is large amount of bloody fluid within the pleural cavity. The patient appeared to have an intraperitoneal bleed. The blood and clots were evacuated and then the bowel was examined. No obvious source of bleeding could be found. The mesentery from the previous small bowel resection was examined. There is no obvious bleeding. The bowel appeared to be viable. The patient's previous small bowel anastomosis was visualized. It was unclear if this was completely viable. Given the patient's medical condition and his use of pressors it appeared that the anastomosis may be ischemic. It was decided bring out an ileostomy at this point. Small bowel was transected approximately distally to the anastomosis. The document controller used to divide the mesentery. The specimen sent to pathology. 2. Ileostomy brought out in the right lower quadrant. The fascia was then closed with looped #1 PDS suture. The skin was left open the wound was packed with dry Kerlix. Patient top she will was sent to the ICU in critical condition.
[2020-08-02 18:25] LABS: ABG Base Excess -3.8 mmol/L; ABG HCO3 22 mmol/L (21-25); ABG Oxygen Saturation 97.8 % (94-97); ABG PCO2 42 mmHg (35-45); ABG PH 7.33 (7.35-7.45); ABG PO2 85 mmHg (83-108); ABG TCO2 23 mmol/L (19-24); Allen Test Performed? Yes
[2020-08-02] MEDS: 1: MVI, ADULT NO.4 WITH VIT K 10 ML, TRACE (CONC-1ML/DOSE) 1 ML, PARENTERAL ELECTROLYTES IV SCH ×6 (19:03)
[2020-08-02 19:38] LABS: Appearance,Urine Clear (Clear); Bacteria,Urine Rare /hpf; Bilirubin,Urine Negative (Negative); Blood,Urine Moderate (Negative); Color,Urine Yellow; Glucose,Urine (UA) Negative (Negative); Hyaline Casts,Urine 1 /lpf (0-2); Ketones,Urine Negative (Negative); Leukocyte Esterase,Urine Trace (Negative); Mucus,Urine Rare /hpf; Nitrite,Urine Negative (Negative); Protein,Urine Negative (Negative); RBC,Urine 16 /hpf (0-5); Specific Gravity,Urine 1.016 (1.001-1.035); Urobilinogen,Urine <2.0 mg/dL (<2.0); WBC,Urine 4 /hpf (0-5)
[2020-08-02] MEDS ORDERED: INSULIN ASPART (NovoLOG) 100 UNIT/ML VIAL SQ SCH (20:00)
[2020-08-02 21:24] LABS: Glucose,Whole Blood 255 mg/dL (75-99)
[2020-08-02] MEDS: SODIUM CHLORIDE 0.9% 1,000 ML IV SCH (21:30)
[2020-08-02 22:23] LABS: Anisocytosis Slight; HCT 29.4 % (39.0-53.0); HGB 9.5 gm/dL (13.0-17.5); Hypochromasia Slight; MCH 30.9 pg (25.0-35.0); MCHC 32.4 g/dL (31.0-37.0); MCV 95.5 fL (80.0-100.0); Macrocytosis Slight; Mean Platelet Volume 8.7; Platelet Count 165 k/uL (150-450); Poikilocytosis Slight; RBC 3.07 m/uL (4.30-5.90); RDW 17.7 % (11.5-15.5); WBC 27.8 k/uL (3.8-10.6)
[2020-08-02 23:40] LABS: Glucose,Whole Blood 263 mg/dL (75-99)
[2020-08-03] MEDS: HEPARIN SODIUM,PORCINE 5,000 UNIT/ML 1 ML VIAL SQ SCH ×4 (00:10→23:35)
[2020-08-03] MEDS: PIPERACILLIN-TAZOBACTAM 3.375 GM in SODIUM CHLORIDE 0.9% 100 ML IVPB SCH ×4 (00:10→23:36)
[2020-08-03] MEDS: INSULIN REGULAR 100 UNIT in SODIUM CHLORIDE 0.9% 100 ML IV SCH ×2 (00:42→20:35)
--- NOTE | 2020-08-03 00:56 | XR ---
EXAM: XR Chest, 1 View CLINICAL HISTORY: ITS.REASON XR Reason: decreased breath sounds on the left TECHNIQUE: Frontal view of the chest. COMPARISON: Chest x-ray 08/02/2020. FINDINGS: Lungs: Continued bibasilar atelectasis/consolidation. Pulmonary emphysema. Pleural space: Continued bilateral pleural effusions. No pneumothorax. Heart: No cardiomegaly. Mediastinum: Unremarkable. Bones/joints: Median sternotomy wires. Tubes, lines and devices: ET tube is 7 cm above the mickey. Ideally, this can be lowered, at least 1 cm. Right IJ central venous catheter tip in the low SVC. IMPRESSION: 1. ET tube is 7 cm above the mickey. Ideally, this can be lowered, at least 1 cm. 2. Continued bibasilar atelectasis/consolidation. 3. Continued bilateral pleural effusions.
[2020-08-03] MEDS: AMIODARONE 300 MG in DEXTROSE 5% IN WATER 250 ML IV SCH ×6 (01:02→21:47)
[2020-08-03 01:06] LABS: Glucose,Whole Blood 243 mg/dL (75-99)
[2020-08-03 02:01] LABS: Glucose,Whole Blood 211 mg/dL (75-99)
[2020-08-03] MEDS: NOREPINEPHRINE 8 MG in SODIUM CHLORIDE 0.9% 250 ML IV SCH ×3 (02:04→20:35)
[2020-08-03] MEDS: HYDROmorphone 0.5 MG/0.5 ML SYRINGE IVP PRN ×2 (02:09→11:33)
[2020-08-03 02:54] LABS: Glucose,Whole Blood 201 mg/dL (75-99)
[2020-08-03 04:15] LABS: Glucose,Whole Blood 177 mg/dL (75-99)
[2020-08-03 04:23] LABS: Anisocytosis Slight; HCT 29.5 % (39.0-53.0); HGB 9.5 gm/dL (13.0-17.5); Hypochromasia Slight; MCH 30.6 pg (25.0-35.0); MCHC 32.2 g/dL (31.0-37.0); Macrocytosis Slight; Platelet Count 147 k/uL (150-450); Poikilocytosis Slight; RDW 17.2 % (11.5-15.5); WBC 29.9 k/uL (3.8-10.6)
[2020-08-03 04:27] LABS: INR 1.2 (<1.2); Prothrombin Time 12.6 sec (9.0-12.0)
[2020-08-03] MEDS: 1: MVI, ADULT NO.4 WITH VIT K 10 ML, TRACE (CONC-1ML/DOSE) 1 ML, PARENTERAL ELECTROLYTES IV SCH ×12 (04:31→17:32)
[2020-08-03 04:44] LABS: Glucose,Whole Blood 204 mg/dL (75-99)
[2020-08-03 04:44] LABS: Albumin 2.2 g/dL (3.5-5.0); Phosphorus 4.4 mg/dL (2.5-4.5); Potassium 3.6 mmol/L (3.5-5.1); Total Bilirubin 1.6 mg/dL (0.2-1.3); Total Protein 4.2 g/dL (6.3-8.2)
[2020-08-03 04:57] LABS: Band Neutrophils % 4 %; Neutrophils % (M) 89 %; Nucleated Red Blood Cells 0 /100 WBC (0-0); Total Cells Counted 100
[2020-08-03 04:58] LABS: Polychromasia Present
[2020-08-03 05:14] LABS: ABG Base Excess -4.8 mmol/L; ABG HCO3 21 mmol/L (21-25); ABG Oxygen Saturation 97.4 % (94-97); ABG PCO2 42 mmHg (35-45); ABG PH 7.32 (7.35-7.45); ABG PO2 86 mmHg (83-108); ABG TCO2 23 mmol/L (19-24); Allen Test Performed? Yes
[2020-08-03] MEDS: POTASSIUM CHLORIDE 10 MEQ in WATER FOR INJECTION 1 100ML.BAG IVPB SCH ×4 (05:28→23:36)
[2020-08-03 06:07] LABS: Glucose,Whole Blood 153 mg/dL (75-99)
--- NOTE | 2020-08-03 06:37 | XR ---
EXAMINATION TYPE: XR chest 1V portable DATE OF EXAM: 08/03/2020 CLINICAL HISTORY: Difficulty breathing progress study. TECHNIQUE: Single AP portable semiupright view of the chest is obtained. COMPARISON: Chest x-ray from earlier today and older studies FINDINGS: Endotracheal tube is roughly 1 to 2 cm more caudal in position at level of aortic knob. St able oral gastric tube. Stable right internal jugular central venous catheter. Overlying sternal wire s and mediastinal clips along with left atrial appendage clip are all redemonstrated. Persistent cardiomegaly with mild central vascular congestion and bibasilar opacities. Osseous struct ures are intact. IMPRESSION: Findings consistent with CHF exacerbation as there is cardiomegaly with mild central vasc ular congestion and small bilateral pleural effusions. There is associated bibasilar atelectasis and/ or infiltrate. No significant change from most recent x-ray.
[2020-08-03] MEDS ORDERED: INSULIN DETEMIR (LEVEMIR) 100 UNIT/ML SYR SQ SCH (07:00)
[2020-08-03 07:10] LABS: Glucose,Whole Blood 132 mg/dL (75-99)
[2020-08-03] MEDS: IPRATROPIUM-ALBUTEROL 3 ML NEB INHALATION SCH ×4 (07:36→19:40)
[2020-08-03] MEDS: BUDESONIDE 1 MG/2 ML NEBU INHALATION SCH ×2 (07:36→19:41)
[2020-08-03] MEDS: FORMOTEROL FUMARATE 20 MCG/2 ML NEBU INHALATION SCH ×2 (07:36→19:41)
[2020-08-03 08:14] LABS: Glucose,Whole Blood 129 mg/dL (75-99)
[2020-08-03] MEDS: CHLORHEXIDINE GLUCONATE 15 ML CUP MUCOUS MEM SCH ×2 (08:14→21:46)
[2020-08-03] MEDS ORDERED: LIDOCAINE 1% INJ 10MG/ML (20 ML MDV) ONE (09:15)
[2020-08-03] MEDS ORDERED: ANIDULAFUNGIN 200 MG in SODIUM CHLORIDE 0.9% 200 ML IVPB ONE (09:45)
[2020-08-03] MEDS ORDERED: LIDOCAINE 1% INJ 10MG/ML (20 ML MDV) SQ ONE (09:45)
[2020-08-03 09:46] LABS: Glucose,Whole Blood 132 mg/dL (75-99)
--- NOTE | 2020-08-03 09:48 | P.PN ---
Subjective Patient is seen in follow-up for acute kidney injury on chronic kidney disease. Renal function stable. Remains on Levophed. He is also on amiodarone drip for A. fib with RVR. Currently on 40% FiO2. Intubated. Receiving TPN. Underwent another exploratory laparotomy with washout of peritoneal cavity and ileostomy August 02. Vital signs are stable. On vasopressor support. HEENT: Intubated. LUNGS: Breath sounds decreased. HEART: Regular rate and rhythm. ABDOMEN: No gross distention noted. EXTREMITITES: 1+ edema. Objective - Vital Signs Vital signs: Vital Signs Temp 97.5 F L 08/03/20 08:15 Pulse 79 08/03/20 08:15 Resp 25 H 08/03/20 08:15 BP 110/71 08/03/20 08:15 Pulse Ox 99 08/03/20 08:15 Intake & Output 08/02/20 08/03/20 08/03/20 18:59 06:59 18:59 Intake Total 4932.655 3041.652 207.083 Output Total 530 775 65 Balance 4402.655 2266.652 142.083 Weight 98.9 kg 109.2 kg Intake: IV 3146 1182 202 Albumin Human 5% 500 ml 500 In Empty Bag 1 bag @ 500 mls/hr IVPB ONCE [facility] Rx#: [id number] Calcium Gluconate 1 gm In 100 Sodium Chloride 0.9% 100 ml @ 100 mls/hr IVPB ONCE [facility] Rx#:[id number] Fat Emulsion 20% 250 ml 10 In Empty Bag 1 bag @ 21 mls/hr IV [id number] [facility] Rx#:[id number] Piperacillin-Tazobactam 3 100 .375 gm In Sodium Chloride 0.9% 100 ml @ 25 mls/hr IVPB Q8HR [facility] Rx# :[id number] Sodium Chloride 0.9% 1, 140 210 40 000 ml @ 20 mls/hr IV . Q24H [facility] Rx#:[id number] Sodium Chloride 0.9% 1, 1000 000 ml @ 999 mls/hr IV . Q1H1M [facility] Rx#:[id number] TPN 730 900 150 pressure bag 66 72 12 Intake, IV Titration 404.094 6779.652 5.083 Amount Amiodarone 300 mg In 250 225.833 Dextrose 5% in Water 250 ml @ 0.5 MG/MIN 25 mls/hr IV .Q10H [facility] Rx#: [id number] Insulin Regular 100 unit 35.850 5.083 In Sodium Chloride 0.9% 100 ml @ Per Protocol IV .Q0M [facility] Rx#:[id number] Mvi, Adult No.4 with Vit 710 K 10 ml Trace (Conc-1Ml/ Dose) 1 ml Parenteral Electrolytes 20 ml Sodium Chloride 2.5MEQ/ml Vial 10 meq Calcium Gluconate 1 gm In Amino Acid 5%- D15w 1,000 ml @ 75 mls/hr IV .BY DURATION [facility] Rx#: [id number] Norepinephrine 8 mg In 506.655 322.641 Sodium Chloride 0.9% 250 ml @ 0.05 MCG/KG/MIN 10. 846 mls/hr IV .[id number] [facility] Rx#:[id number] propofoL 1,000 mg In 100.000 105.328 Empty Bag 1 bag @ Titrate IV .Q0M [facility] Rx#: [id number] Blood Product 930 310 Rc As-1 Unit 310 [id number] Rc As-1 Unit 0 310 [id number] Rc As-1 Unit 310 [id number] Other 150 Rc As-1 Unit 150 [id number] Output: Gastric Drainage 350 Urine 430 425 65 Emesis 0 0 Estimated Blood Loss 100 Other: Voiding Method Indwelling Catheter Indwelling Catheter ABP, PAP, CO, CI - Last Documented Arterial Blood Pressure 120/53 Pulmonary Artery Pressure 33/14 Cardiac Output 6.7 Cardiac Index 3.1 - Labs CBC & Chem 7: 08/03/20 04:14 08/03/20 04:14 Labs: Abnormal Lab Results - Last 24 Hours (Table) 08/02/20 08/02/20 08/02/20 Range/Units 07:55 12:21 12:23 WBC 21.6 H (3.8-10.6) k/uL RBC 2.65 L (4.30-5.90) m/uL Hgb 8.2 L (13.0-17.5) gm/dL Hct 25.4 L (39.0-53.0) % RDW 17.2 H (11.5-15.5) % Plt Count (150-450) k/uL Neutrophils # (Manual) (1.3-7.7) k/uL PT (9.0-12.0) sec INR (<1.2) ABG pH (7.35-7.45) ABG pO2 (83-108) mmHg ABG O2 Saturation (94-97) % Sodium (137-145) mmol/L Carbon Dioxide (22-30) mmol/L BUN (9-20) mg/dL Creatinine (0.66-1.25) mg/dL Glucose (74-99) mg/dL POC Glucose (mg/dL) 283 H (75-99) mg/dL Calcium (8.4-10.2) mg/dL Total Bilirubin (0.2-1.3) mg/dL AST (17-59) U/L ALT (4-49) U/L Alkaline Phosphatase (38-126) U/L Total Protein (6.3-8.2) g/dL Albumin (3.5-5.0) g/dL Urine Blood (Negative) Ur Leukocyte Esterase (Negative) Urine RBC (0-5) /hpf Urine Bacteria (None) /hpf Urine Mucus (None) /hpf Crossmatch See Detail 08/02/20 08/02/20 08/02/20 Range/Units 16:04 17:01 18:22 WBC (3.8-10.6) k/uL RBC (4.30-5.90) m/uL Hgb (13.0-17.5) gm/dL Hct (39.0-53.0) % RDW (11.5-15.5) % Plt Count (150-450) k/uL Neutrophils # (Manual) (1.3-7.7) k/uL PT (9.0-12.0) sec INR (<1.2) ABG pH 7.30 L 7.33 L (7.35-7.45) ABG pO2 82 L (83-108) mmHg ABG O2 Saturation 97.8 H (94-97) % Sodium (137-145) mmol/L Carbon Dioxide (22-30) mmol/L BUN (9-20) mg/dL Creatinine (0.66-1.25) mg/dL Glucose (74-99) mg/dL POC Glucose (mg/dL) 281 H (75-99) mg/dL Calcium (8.4-10.2) mg/dL Total Bilirubin (0.2-1.3) mg/dL AST (17-59) U/L ALT (4-49) U/L Alkaline Phosphatase (38-126) U/L Total Protein (6.3-8.2) g/dL Albumin (3.5-5.0) g/dL Urine Blood (Negative) Ur Leukocyte Esterase (Negative) Urine RBC (0-5) /hpf Urine Bacteria (None) /hpf Urine Mucus (None) /hpf Crossmatch 08/02/20 08/02/20 08/02/20 Range/Units 19:17 21:23 22:15 WBC 27.8 H (3.8-10.6) k/uL RBC 3.07 L (4.30-5.90) m/uL Hgb 9.5 L (13.0-17.5) gm/dL Hct 29.4 L (39.0-53.0) % RDW 17.7 H (11.5-15.5) % Plt Count (150-450) k/uL Neutrophils # (Manual) (1.3-7.7) k/uL PT (9.0-12.0) sec INR (<1.2) ABG pH (7.35-7.45) ABG pO2 (83-108) mmHg ABG O2 Saturation (94-97) % Sodium (137-145) mmol/L Carbon Dioxide (22-30) mmol/L BUN (9-20) mg/dL Creatinine (0.66-1.25) mg/dL Glucose (74-99) mg/dL POC Glucose (mg/dL) 255 H (75-99) mg/dL Calcium (8.4-10.2) mg/dL Total Bilirubin (0.2-1.3) mg/dL AST (17-59) U/L ALT (4-49) U/L Alkaline Phosphatase (38-126) U/L Total Protein (6.3-8.2) g/dL Albumin (3.5-5.0) g/dL Urine Blood Moderate H (Negative) Ur Leukocyte Esterase Trace H (Negative) Urine RBC 16 H (0-5) /hpf Urine Bacteria Rare H (None) /hpf Urine Mucus Rare H (None) /hpf Crossmatch 08/02/20 08/03/20 08/03/20 Range/Units 23:38 01:04 02:00 WBC (3.8-10.6) k/uL RBC (4.30-5.90) m/uL Hgb (13.0-17.5) gm/dL Hct (39.0-53.0) % RDW (11.5-15.5) % Plt Count (150-450) k/uL Neutrophils # (Manual) (1.3-7.7) k/uL PT (9.0-12.0) sec INR (<1.2) ABG pH (7.35-7.45) ABG pO2 (83-108) mmHg ABG O2 Saturation (94-97) % Sodium (137-145) mmol/L Carbon Dioxide (22-30) mmol/L BUN (9-20) mg/dL Creatinine (0.66-1.25) mg/dL Glucose (74-99) mg/dL POC Glucose (mg/dL) 263 H 243 H 211 H (75-99) mg/dL Calcium (8.4-10.2) mg/dL Total Bilirubin (0.2-1.3) mg/dL AST (17-59) U/L ALT (4-49) U/L Alkaline Phosphatase (38-126) U/L Total Protein (6.3-8.2) g/dL Albumin (3.5-5.0) g/dL Urine Blood (Negative) Ur Leukocyte Esterase (Negative) Urine RBC (0-5) /hpf Urine Bacteria (None) /hpf Urine Mucus (None) /hpf Crossmatch 08/03/20 08/03/20 08/03/20 Range/Units 02:53 04:13 04:14 WBC (3.8-10.6) k/uL RBC (4.30-5.90) m/uL Hgb (13.0-17.5) gm/dL Hct (39.0-53.0) % RDW (11.5-15.5) % Plt Count (150-450) k/uL Neutrophils # (Manual) (1.3-7.7) k/uL PT (9.0-12.0) sec INR (<1.2) ABG pH (7.35-7.45) ABG pO2 (83-108) mmHg ABG O2 Saturation (94-97) % Sodium 135 L (137-145) mmol/L Carbon Dioxide 21 L (22-30) mmol/L BUN 99 H (9-20) mg/dL Creatinine 2.48 H (0.66-1.25) mg/dL Glucose 173 H (74-99) mg/dL POC Glucose (mg/dL) 201 H 177 H (75-99) mg/dL Calcium 8.0 L (8.4-10.2) mg/dL Total Bilirubin 1.6 H (0.2-1.3) mg/dL AST 189 H (17-59) U/L ALT 308 H (4-49) U/L Alkaline Phosphatase 36 L (38-126) U/L Total Protein 4.2 L (6.3-8.2) g/dL Albumin 2.2 L (3.5-5.0) g/dL Urine Blood (Negative) Ur Leukocyte Esterase (Negative) Urine RBC (0-5) /hpf Urine Bacteria (None) /hpf Urine Mucus (None) /hpf Crossmatch 08/03/20 08/03/20 08/03/20 Range/Units 04:14 04:14 04:43 WBC 29.9 H (3.8-10.6) k/uL RBC 3.10 L (4.30-5.90) m/uL Hgb 9.5 L (13.0-17.5) gm/dL Hct 29.5 L (39.0-53.0) % RDW 17.2 H (11.5-15.5) % Plt Count 147 L (150-450) k/uL Neutrophils # (Manual) 27.80 H (1.3-7.7) k/uL PT 12.6 H (9.0-12.0) sec INR 1.2 H (<1.2) ABG pH (7.35-7.45) ABG pO2 (83-108) mmHg ABG O2 Saturation (94-97) % Sodium (137-145) mmol/L Carbon Dioxide (22-30) mmol/L BUN (9-20) mg/dL Creatinine (0.66-1.25) mg/dL Glucose (74-99) mg/dL POC Glucose (mg/dL) 204 H (75-99) mg/dL Calcium (8.4-10.2) mg/dL Total Bilirubin (0.2-1.3) mg/dL AST (17-59) U/L ALT (4-49) U/L Alkaline Phosphatase (38-126) U/L Total Protein (6.3-8.2) g/dL Albumin (3.5-5.0) g/dL Urine Blood (Negative) Ur Leukocyte Esterase (Negative) Urine RBC (0-5) /hpf Urine Bacteria (None) /hpf Urine Mucus (None) /hpf Crossmatch 08/03/20 08/03/20 08/03/20 Range/Units 05:11 06:06 07:09 WBC (3.8-10.6) k/uL RBC (4.30-5.90) m/uL Hgb (13.0-17.5) gm/dL Hct (39.0-53.0) % RDW (11.5-15.5) % Plt Count (150-450) k/uL Neutrophils # (Manual) (1.3-7.7) k/uL PT (9.0-12.0) sec INR (<1.2) ABG pH 7.32 L (7.35-7.45) ABG pO2 (83-108) mmHg ABG O2 Saturation 97.4 H (94-97) % Sodium (137-145) mmol/L Carbon Dioxide (22-30) mmol/L BUN (9-20) mg/dL Creatinine (0.66-1.25) mg/dL Glucose (74-99) mg/dL POC Glucose (mg/dL) 153 H 132 H (75-99) mg/dL Calcium (8.4-10.2) mg/dL Total Bilirubin (0.2-1.3) mg/dL AST (17-59) U/L ALT (4-49) U/L Alkaline Phosphatase (38-126) U/L Total Protein (6.3-8.2) g/dL Albumin (3.5-5.0) g/dL Urine Blood (Negative) Ur Leukocyte Esterase (Negative) Urine RBC (0-5) /hpf Urine Bacteria (None) /hpf Urine Mucus (None) /hpf Crossmatch 08/03/20 Range/Units 08:11 WBC (3.8-10.6) k/uL RBC (4.30-5.90) m/uL Hgb (13.0-17.5) gm/dL Hct (39.0-53.0) % RDW (11.5-15.5) % Plt Count (150-450) k/uL Neutrophils # (Manual) (1.3-7.7) k/uL PT (9.0-12.0) sec INR (<1.2) ABG pH (7.35-7.45) ABG pO2 (83-108) mmHg ABG O2 Saturation (94-97) % Sodium (137-145) mmol/L Carbon Dioxide (22-30) mmol/L BUN (9-20) mg/dL Creatinine (0.66-1.25) mg/dL Glucose (74-99) mg/dL POC Glucose (mg/dL) 129 H (75-99) mg/dL Calcium (8.4-10.2) mg/dL Total Bilirubin (0.2-1.3) mg/dL AST (17-59) U/L ALT (4-49) U/L Alkaline Phosphatase (38-126) U/L Total Protein (6.3-8.2) g/dL Albumin (3.5-5.0) g/dL Urine Blood (Negative) Ur Leukocyte Esterase (Negative) Urine RBC (0-5) /hpf Urine Bacteria (None) /hpf Urine Mucus (None) /hpf Crossmatch Assessment and Plan Plan: Assessment: 1. Acute kidney injury secondary to hemodynamic ATN. No hydronephrosis noted on computed tomography scan. No proteinuria on UA. Renal function stable. Urine output 30-35 mL an hour. 2. Chronic kidney disease stage III with baseline creatinine in the range of 1.2-1.5 secondary to nephrosclerosis. UA from June 2020 was benign. 3. Coronary artery disease status post 2 vessel CABG on July 18. 4. Hypervolemic hyponatremia. Improved with diuresis. 5. Bowel ischemia status post exploratory laparotomy and resection. Underwent another exploratory laparotomy on August 02 with ileostomy. 6. Diabetes mellitus. 7. Volume overload. 8. Hypokalemia secondary to diuresis. Replaced. 9. A. fib maintained on amiodarone drip. 10. Anemia of chronic kidney disease and post-cabg. Status post blood transfusion this admission. Plan: Lasix 60 mg IV once today. Status post IV albumin August 02. Maintain TPN per surgical recommendations. Avoid nephrotoxins. Continue to monitor renal function and urine output. Wean FiO2 and vasopressors.
[2020-08-03] MEDS: ASPIRIN 81 MG PO SCH (10:26)
[2020-08-03] MEDS: LEVOTHYROXINE IVP 100 MCG/5 ML VIAL IV SCH (10:27)
[2020-08-03] MEDS: PANTOPRAZOLE 40 MG/10 ML VIAL IVP SCH ×2 (10:28→21:46)
--- NOTE | 2020-08-03 10:31 | XR ---
EXAMINATION TYPE: XR chest 1V confirm line [facility] DATE OF EXAM: 08/03/2020 CLINICAL HISTORY: PICC line placement.. TECHNIQUE: Single AP portable semiupright view of the chest is obtained. COMPARISON: Chest x-ray from earlier today and older studies. FINDINGS: New right-sided PICC line terminates in SVC. Endotracheal tube and orogastric tubes are stable in position. Stable right internal jugular central venous catheter. Overlying sternal wires and mediastinal clips along with left atrial appendage clip are all redemonstrated. Persistent cardiomegaly with bibasilar opacities. Osseous structures are intact. IMPRESSION: New right-sided PICC line terminates in SVC. Persistent small bilateral pleural effusions and bibasilar atelectasis and/or infiltrate. Mild central vascular congestion. Perhaps slight interv al improvement from most recent prior.
--- NOTE | 2020-08-03 10:35 | IR ---
PICC LINE PLACEMENT: HISTORY: Infection requiring long-term antibiotic therapy PROCEDURE: Ultrasound guidance of PICC line placement. PRINCIPLE INDUSTRIAL HYGIENIST: Dr. Eldridge. COMPLICATIONS: None ANESTHESIA: 1. 1% Lidocaine locally. FINDINGS/TECHNIQUE: The procedure was explained to the patient. The risks, complications, benefits and alternatives were discussed and any questions were answered. Informed consent was obtained. The patient was placed supine on the fluoroscopic table and prepped and draped in the usual sterile fas ion. Utilizing a 21 gauge needle and sonographic guidance, access in the right basilic vein was ach ieved and there is placement of a 0.018 guidewire. The vein is patent. A 5-F. sheath was placed ove r the guidewire. The guidewire and dilator were removed and a 5-F. Double lumen PICC line was placed through the sheath with the chest x-ray confirming the tip at the level of the SVC. The sheath was removed, the catheter was flushed and sutured into position. The patient was stable throughout the p rocedure and remained stable upon discharge from the Department of Radiology. The vein puncture was patent under ultrasound. A moulton scale image was obtained to document patency of the vein punctured. All elements of the maximal barrier technique were utilized. IMPRESSION: 1. Successful PICC line placement under ultrasound performed bedside within the ICU.
[2020-08-03 11:23] LABS: Glucose,Whole Blood 130 mg/dL (75-99)
[2020-08-03] MEDS ORDERED: FUROSEMIDE 10 MG/ML 10 ML VIAL IV STA (12:26)
--- NOTE | 2020-08-03 12:54 | P.PN ---
Subjective Progress Note Date: 08/03/20 Principal diagnosis: Symptomatic triple-vessel coronary artery disease, mild left ventricular dysfunction. Previuos medical history of stenting to his right coronary artery in 2002, hypertension, hyperlipidemia, hypothyroid status post partial thyroidectomy, previous tobacco dependence quit smoking 20 years ago, moderate chronic obstructive pulmonary disease with preoperative FEV1 of 56% of predicted value, bullous emphysema, remote history of pneumonia, type 2 diabetes mellitus with a preoperative hemoglobin A1c of 5.2%, chronic kidney disease stage III with a baseline creatinine of 1.4-1.5, family history of premature coronary artery disease with brother having had CABG at less than 50 years old. POD #16 double coronary artery bypass grafting using the left internal mammary artery to left anterior descending coronary artery, reverse greater saphenous vein graft from the aorta to the posterior descending coronary artery. Exclusion of the left atrial appendage using a 35 mm Atriclip, endoscopic harvesting of the right greater saphenous vein from the groin to above the ankle level, graft flow measurement using the [employer] system, intraoperative transesophageal echocardiogram and epi-aortic scanning. Postoperative acute blood loss anemia, expected outcome from hemodilution and cardiopulmonary bypass. Postoperative paroxysmal atrial fibrillation, unexpected but common outcome after open heart surgery. Pneumoperitoneum, unexpected Acute on chronic kidney disease secondary to ATN Pneumatosis of the small bowel POD #10 small bowel resection Prolonged mechanical ventilation, unexpected Acute abdomen, intraperitoneal hemorrhage POD #1 Exploratory laparotomy, washout of peritoneal cavity, ileostomy with small bowel resection Patient's currently laying in the intensive care unit mechanically ventilated. Currently in controlled atrial fibrillation, remains on IV levo for hypotension, continues on IV amiodarone. NG tube in place to low intermittent suction with 350 mL green fluid last 24 hours, no bowel sounds. Abdomen is soft, remains on TPN. Remains on IV Zosyn, Day 10. Returned to OR yesterday after developing abdominal pain, came back from OR with ileostomy. Objective - Vital Signs Vital signs: Vital Signs Temp 97.7 F 08/03/20 12:15 Pulse 65 08/03/20 12:15 Resp 27 H 08/03/20 12:15 BP 111/49 08/03/20 12:15 Pulse Ox 100 08/03/20 12:15 Intake & Output 08/02/20 08/03/20 08/03/20 18:59 06:59 18:59 Intake Total 4932.655 3041.652 1358.307 Output Total 530 775 440 Balance 4402.655 2266.652 918.307 Weight 98.9 kg 109.2 kg Intake: IV 3146 1182 806 Albumin Human 5% 500 ml 500 In Empty Bag 1 bag @ 500 mls/hr IVPB ONCE ONE Rx#: [id number] Anidulafungin 200 mg In 200 Sodium Chloride 0.9% 200 ml @ 84 mls/hr IVPB ONCE ONE Rx#:[id number] Calcium Gluconate 1 gm In 100 Sodium Chloride 0.9% 100 ml @ 100 mls/hr IVPB ONCE ONE Rx#:[id number] Fat Emulsion 20% 250 ml 10 In Empty Bag 1 bag @ 21 mls/hr IV [id number] [facility] Rx#:[id number] Piperacillin-Tazobactam 3 100 .375 gm In Sodium Chloride 0.9% 100 ml @ 25 mls/hr IVPB Q8HR [facility] Rx# :[id number] Sodium Chloride 0.9% 1, 140 210 120 000 ml @ 20 mls/hr IV . Q24H [facility] Rx#:[id number] Sodium Chloride 0.9% 1, 1000 000 ml @ 999 mls/hr IV . Q1H1M [facility] Rx#:[id number] TPN 730 900 450 pressure bag 66 72 36 Intake, IV Titration 659.043 8915.652 552.307 Amount Amiodarone 300 mg In 250 225.833 250 Dextrose 5% in Water 250 ml @ 0.5 MG/MIN 25 mls/hr IV .Q10H [facility] Rx#: [id number] Insulin Regular 100 unit 35.850 5.083 In Sodium Chloride 0.9% 100 ml @ Per Protocol IV .Q0M [facility] Rx#:[id number] Mvi, Adult No.4 with Vit 710 K 10 ml Trace (Conc-1Ml/ Dose) 1 ml Parenteral Electrolytes 20 ml Sodium Chloride 2.5MEQ/ml Vial 10 meq Calcium Gluconate 1 gm In Amino Acid 5%- D15w 1,000 ml @ 75 mls/hr IV .BY DURATION [facility] Rx#: [id number] Norepinephrine 8 mg In 506.655 322.641 181.574 Sodium Chloride 0.9% 250 ml @ 0.05 MCG/KG/MIN 10. 846 mls/hr IV .[id number] [facility] Rx#:[id number] propofoL 1,000 mg In 100.000 105.328 115.650 Empty Bag 1 bag @ Titrate IV .Q0M [facility] Rx#: [id number] Blood Product 930 310 Rc As-1 Unit 310 [id number] Rc As-1 Unit 0 310 [id number] Rc As-1 Unit 310 [id number] Other 150 Rc As-1 Unit 150 [id number] Output: Gastric Drainage 350 Urine 430 425 440 Emesis 0 0 Estimated Blood Loss 100 Other: Voiding Method Indwelling Catheter Indwelling Catheter Indwelling Catheter ABP, PAP, CO, CI - Last Documented Arterial Blood Pressure 129/44 Pulmonary Artery Pressure 33/14 Cardiac Output 6.7 Cardiac Index 3.1 - Constitutional General appearance: Present: no acute distress, obese - Respiratory Details: Lungs sounds diminished bilaterally with coarse breath sounds in the bases. Respirations even, non-labored on mechanical ventilation. Current settings AC mode, FiO2 40%, TV 500, RR 24, PEEP 5. 8.0 ETT present, 25 @ lip - Cardiovascular Details: S1, S2 present. Irregular rate and rhythm, atrial fibrillation on telemetry with rate in the 80s. Sternum stable. Palpable peripheral pulses bilaterally. Generalized edema present. Heart hugger, antiembolism stockings, SCDs present. Right internal jugular triple-lumen central line, right femoral arterial line present. - Gastrointestinal Gastrointestinal Comment(s): Abdomen soft, nontender, slightly distended. No bowel sounds. NG tube present to low intermittent suction with 350 mL green drainage in 24 hours. Ileostomy present to RLQ, stoma pink and moist, no output - Genitourinary Genitourinary Comment(s): Villafana catheter present draining clear, yellow urine. Output 25-50 mL/h overnight, 855 mL in the last 24 hours - Integumentary Integumentary Comment(s): Skin is warm and dry, fingernails have blue tint. Anterior chest incision well approximated and covered with dry intact dressing. Right lower extremity EVH site well approximated. Mid abdominal incision open, packed, dressing in place. The patient has shear injury approximately 5 x 7 cm beneath his right shoulder, Silvadene cream applied, dry dressing in place - Neurologic Neurologic Comment(s): sedated on mechanical ventilation - Psychiatric Psychiatric Comment(s): sedated on mechanical ventilation - Allied health notes Allied health notes reviewed: nursing - Labs CBC & Chem 7: 08/03/20 04:14 08/03/20 04:14 Labs: Abnormal Lab Results - Last 24 Hours (Table) 08/02/20 08/02/20 08/02/20 Range/Units 07:55 12:23 16:04 WBC 21.6 H (3.8-10.6) k/uL RBC 2.65 L (4.30-5.90) m/uL Hgb 8.2 L (13.0-17.5) gm/dL Hct 25.4 L (39.0-53.0) % RDW 17.2 H (11.5-15.5) % Plt Count (150-450) k/uL Neutrophils # (Manual) (1.3-7.7) k/uL PT (9.0-12.0) sec INR (<1.2) ABG pH 7.30 L (7.35-7.45) ABG pO2 82 L (83-108) mmHg ABG O2 Saturation (94-97) % Sodium (137-145) mmol/L Carbon Dioxide (22-30) mmol/L BUN (9-20) mg/dL Creatinine (0.66-1.25) mg/dL Glucose (74-99) mg/dL POC Glucose (mg/dL) (75-99) mg/dL Calcium (8.4-10.2) mg/dL Total Bilirubin (0.2-1.3) mg/dL AST (17-59) U/L ALT (4-49) U/L Alkaline Phosphatase (38-126) U/L C-Reactive Protein (<10.0) mg/L Total Protein (6.3-8.2) g/dL Albumin (3.5-5.0) g/dL Urine Blood (Negative) Ur Leukocyte Esterase (Negative) Urine RBC (0-5) /hpf Urine Bacteria (None) /hpf Urine Mucus (None) /hpf Crossmatch See Detail 08/02/20 08/02/20 08/02/20 Range/Units 17:01 18:22 19:17 WBC (3.8-10.6) k/uL RBC (4.30-5.90) m/uL Hgb (13.0-17.5) gm/dL Hct (39.0-53.0) % RDW (11.5-15.5) % Plt Count (150-450) k/uL Neutrophils # (Manual) (1.3-7.7) k/uL PT (9.0-12.0) sec INR (<1.2) ABG pH 7.33 L (7.35-7.45) ABG pO2 (83-108) mmHg ABG O2 Saturation 97.8 H (94-97) % Sodium (137-145) mmol/L Carbon Dioxide (22-30) mmol/L BUN (9-20) mg/dL Creatinine (0.66-1.25) mg/dL Glucose (74-99) mg/dL POC Glucose (mg/dL) 281 H (75-99) mg/dL Calcium (8.4-10.2) mg/dL Total Bilirubin (0.2-1.3) mg/dL AST (17-59) U/L ALT (4-49) U/L Alkaline Phosphatase (38-126) U/L C-Reactive Protein (<10.0) mg/L Total Protein (6.3-8.2) g/dL Albumin (3.5-5.0) g/dL Urine Blood Moderate H (Negative) Ur Leukocyte Esterase Trace H (Negative) Urine RBC 16 H (0-5) /hpf Urine Bacteria Rare H (None) /hpf Urine Mucus Rare H (None) /hpf Crossmatch 08/02/20 08/02/20 08/02/20 Range/Units 21:23 22:15 23:38 WBC 27.8 H (3.8-10.6) k/uL RBC 3.07 L (4.30-5.90) m/uL Hgb 9.5 L (13.0-17.5) gm/dL Hct 29.4 L (39.0-53.0) % RDW 17.7 H (11.5-15.5) % Plt Count (150-450) k/uL Neutrophils # (Manual) (1.3-7.7) k/uL PT (9.0-12.0) sec INR (<1.2) ABG pH (7.35-7.45) ABG pO2 (83-108) mmHg ABG O2 Saturation (94-97) % Sodium (137-145) mmol/L Carbon Dioxide (22-30) mmol/L BUN (9-20) mg/dL Creatinine (0.66-1.25) mg/dL Glucose (74-99) mg/dL POC Glucose (mg/dL) 255 H 263 H (75-99) mg/dL Calcium (8.4-10.2) mg/dL Total Bilirubin (0.2-1.3) mg/dL AST (17-59) U/L ALT (4-49) U/L Alkaline Phosphatase (38-126) U/L C-Reactive Protein (<10.0) mg/L Total Protein (6.3-8.2) g/dL Albumin (3.5-5.0) g/dL Urine Blood (Negative) Ur Leukocyte Esterase (Negative) Urine RBC (0-5) /hpf Urine Bacteria (None) /hpf Urine Mucus (None) /hpf Crossmatch 08/03/20 08/03/20 08/03/20 Range/Units 01:04 02:00 02:53 WBC (3.8-10.6) k/uL RBC (4.30-5.90) m/uL Hgb (13.0-17.5) gm/dL Hct (39.0-53.0) % RDW (11.5-15.5) % Plt Count (150-450) k/uL Neutrophils # (Manual) (1.3-7.7) k/uL PT (9.0-12.0) sec INR (<1.2) ABG pH (7.35-7.45) ABG pO2 (83-108) mmHg ABG O2 Saturation (94-97) % Sodium (137-145) mmol/L Carbon Dioxide (22-30) mmol/L BUN (9-20) mg/dL Creatinine (0.66-1.25) mg/dL Glucose (74-99) mg/dL POC Glucose (mg/dL) 243 H 211 H 201 H (75-99) mg/dL Calcium (8.4-10.2) mg/dL Total Bilirubin (0.2-1.3) mg/dL AST (17-59) U/L ALT (4-49) U/L Alkaline Phosphatase (38-126) U/L C-Reactive Protein (<10.0) mg/L Total Protein (6.3-8.2) g/dL Albumin (3.5-5.0) g/dL Urine Blood (Negative) Ur Leukocyte Esterase (Negative) Urine RBC (0-5) /hpf Urine Bacteria (None) /hpf Urine Mucus (None) /hpf Crossmatch 08/03/20 08/03/20 08/03/20 Range/Units 04:13 04:14 04:14 WBC 29.9 H (3.8-10.6) k/uL RBC 3.10 L (4.30-5.90) m/uL Hgb 9.5 L (13.0-17.5) gm/dL Hct 29.5 L (39.0-53.0) % RDW 17.2 H (11.5-15.5) % Plt Count 147 L (150-450) k/uL Neutrophils # (Manual) 27.80 H (1.3-7.7) k/uL PT (9.0-12.0) sec INR (<1.2) ABG pH (7.35-7.45) ABG pO2 (83-108) mmHg ABG O2 Saturation (94-97) % Sodium 135 L (137-145) mmol/L Carbon Dioxide 21 L (22-30) mmol/L BUN 99 H (9-20) mg/dL Creatinine 2.48 H (0.66-1.25) mg/dL Glucose 173 H (74-99) mg/dL POC Glucose (mg/dL) 177 H (75-99) mg/dL Calcium 8.0 L (8.4-10.2) mg/dL Total Bilirubin 1.6 H (0.2-1.3) mg/dL AST 189 H (17-59) U/L ALT 308 H (4-49) U/L Alkaline Phosphatase 36 L (38-126) U/L C-Reactive Protein (<10.0) mg/L Total Protein 4.2 L (6.3-8.2) g/dL Albumin 2.2 L (3.5-5.0) g/dL Urine Blood (Negative) Ur Leukocyte Esterase (Negative) Urine RBC (0-5) /hpf Urine Bacteria (None) /hpf Urine Mucus (None) /hpf Crossmatch 08/03/20 08/03/20 08/03/20 Range/Units 04:14 04:14 04:43 WBC (3.8-10.6) k/uL RBC (4.30-5.90) m/uL Hgb (13.0-17.5) gm/dL Hct (39.0-53.0) % RDW (11.5-15.5) % Plt Count (150-450) k/uL Neutrophils # (Manual) (1.3-7.7) k/uL PT 12.6 H (9.0-12.0) sec INR 1.2 H (<1.2) ABG pH (7.35-7.45) ABG pO2 (83-108) mmHg ABG O2 Saturation (94-97) % Sodium (137-145) mmol/L Carbon Dioxide (22-30) mmol/L BUN (9-20) mg/dL Creatinine (0.66-1.25) mg/dL Glucose (74-99) mg/dL POC Glucose (mg/dL) 204 H (75-99) mg/dL Calcium (8.4-10.2) mg/dL Total Bilirubin (0.2-1.3) mg/dL AST (17-59) U/L ALT (4-49) U/L Alkaline Phosphatase (38-126) U/L C-Reactive Protein 120.4 H (<10.0) mg/L Total Protein (6.3-8.2) g/dL Albumin (3.5-5.0) g/dL Urine Blood (Negative) Ur Leukocyte Esterase (Negative) Urine RBC (0-5) /hpf Urine Bacteria (None) /hpf Urine Mucus (None) /hpf Crossmatch 08/03/20 08/03/20 08/03/20 Range/Units 05:11 06:06 07:09 WBC (3.8-10.6) k/uL RBC (4.30-5.90) m/uL Hgb (13.0-17.5) gm/dL Hct (39.0-53.0) % RDW (11.5-15.5) % Plt Count (150-450) k/uL Neutrophils # (Manual) (1.3-7.7) k/uL PT (9.0-12.0) sec INR (<1.2) ABG pH 7.32 L (7.35-7.45) ABG pO2 (83-108) mmHg ABG O2 Saturation 97.4 H (94-97) % Sodium (137-145) mmol/L Carbon Dioxide (22-30) mmol/L BUN (9-20) mg/dL Creatinine (0.66-1.25) mg/dL Glucose (74-99) mg/dL POC Glucose (mg/dL) 153 H 132 H (75-99) mg/dL Calcium (8.4-10.2) mg/dL Total Bilirubin (0.2-1.3) mg/dL AST (17-59) U/L ALT (4-49) U/L Alkaline Phosphatase (38-126) U/L C-Reactive Protein (<10.0) mg/L Total Protein (6.3-8.2) g/dL Albumin (3.5-5.0) g/dL Urine Blood (Negative) Ur Leukocyte Esterase (Negative) Urine RBC (0-5) /hpf Urine Bacteria (None) /hpf Urine Mucus (None) /hpf Crossmatch 08/03/20 08/03/20 08/03/20 Range/Units 08:11 09:44 11:21 WBC (3.8-10.6) k/uL RBC (4.30-5.90) m/uL Hgb (13.0-17.5) gm/dL Hct (39.0-53.0) % RDW (11.5-15.5) % Plt Count (150-450) k/uL Neutrophils # (Manual) (1.3-7.7) k/uL PT (9.0-12.0) sec INR (<1.2) ABG pH (7.35-7.45) ABG pO2 (83-108) mmHg ABG O2 Saturation (94-97) % Sodium (137-145) mmol/L Carbon Dioxide (22-30) mmol/L BUN (9-20) mg/dL Creatinine (0.66-1.25) mg/dL Glucose (74-99) mg/dL POC Glucose (mg/dL) 129 H 132 H 130 H (75-99) mg/dL Calcium (8.4-10.2) mg/dL Total Bilirubin (0.2-1.3) mg/dL AST (17-59) U/L ALT (4-49) U/L Alkaline Phosphatase (38-126) U/L C-Reactive Protein (<10.0) mg/L Total Protein (6.3-8.2) g/dL Albumin (3.5-5.0) g/dL Urine Blood (Negative) Ur Leukocyte Esterase (Negative) Urine RBC (0-5) /hpf Urine Bacteria (None) /hpf Urine Mucus (None) /hpf Crossmatch - Imaging and Cardiology Chest x-ray: report reviewed, image reviewed Assessment and Plan Assessment: 1. Symptomatic triple-vessel coronary artery disease, status post 2 vessel CABG 2. Mild left ventricular dysfunction 3. Previuos history of stenting to his right coronary artery in 2002 4. Hypertension 5. Hyperlipidemia 6. Hypothyroid status post partial thyroidectomy 7. Previous tobacco dependence with bullous emphysema 8. Moderate chronic obstructive pulmonary disease with preoperative FEV1 of 56% of predicted value 9. Remote history of pneumonia 10. Type 2 diabetes mellitus with a preoperative hemoglobin A1c of 5.2% 11. Chronic kidney disease stage III with a baseline creatinine of 1.4-1.5 12. Family history of premature coronary artery disease with brother having had CABG at less than 50 years old 13. Postoperative acute blood loss anemia, expected outcome 14. Postoperative paroxysmal atrial fibrillation, unexpected, status post exclusion of the left atrial appendage 15. Pneumoperitoneum, unexpected 16. Acute on chronic kidney disease with hyponatremia, hyperkalemia 17. Pneumatosis of the small bowel, status post small bowel resection 18. Sputum culture positive for pseudomonas fluorescens 19. Prolonged mechanical ventilation 20. Acute abdomen, intraperitoneal hemorrhage, S/P exploratory laparotomy, washout of peritoneal cavity, ileostomy with small bowel resection Plan: 1. Continue low dose aspirin. Wean levo as tolerated 2. Continue IV amiodarone for afib. 3. Mechanical ventilation per pulmonology. Bronchodilators, inhaled steroids per pulmonology management. 4. Will monitor daily labs and chest x-rays. 5. GI/DVT prophylaxis. 6. Pain control with current medication regimen. 7. Insulin management per Dr. Polk 8. Continue TPN per RD. No tube feedings per Dr. Dempsey 9. Nephrology following. Avoid nephrotoxic agents. Continue IV Lasix per their recommendations 10. Strict accurate intake and output, daily weight 11. Continue IV Zosyn, day 10. New cultures sent. Infectious disease consulted, appreciate recommendations 12. PICC line placed, DC central line. New arterial line placed, DC femoral line 13. More recommendations to follow based on patient's clinical course. Time with Patient: Greater than 30
--- NOTE | 2020-08-03 13:12 | P.PN ---
Subjective Progress Note Date: 08/03/20 CHIEF COMPLAINT: Status post CABG 2 vessels HISTORY OF PRESENT ILLNESS: Patient remains in the ICU and is intubated and sedated. Yesterday patient clinical status had deteriorated. He became hypotensive requiring norepinephrine and was having abdominal distention and tenderness. Patient was taken back to the OR yesterday 08/02/2020 and underwent exploratory laparotomy, washout of peritoneal cavity and ileostomy with small bowel resection for intraperitoneal hemorrhage. Patient did receive a unit of blood yesterday. He remains on pressure support. There had been minimal blood in the NG tube. Gastric occult was positive. WBC 29.9 hemoglobin 9.5 up from 6.8 after unit of blood. Dr. Frederick did add Eraxis. Lovenox was discontinued and patient has been switched to subcu heparin PHYSICAL EXAM: VITAL SIGNS: Reviewed. GENERAL: Well-developed in no acute distress. HEENT: No sclera icterus. Extraocular movements grossly intact. Moist buccal mucosa. Head is atraumatic, normocephalic. ABDOMEN: Soft. Distended. Open incision dressing minimal saturation of blood noted . Ostomy right side of abdomen with blood drainage NEUROLOGIC: Intubated and sedated ASSESSMENT: 1. Intraperitoneal hemorrhage status post exploratory laparotomy, washout of peritoneal cavity and ileostomy 2. Ischemic small bowel with evidence of pneumatosis status post small bowel resection 3. Acute hypoxic respiratory failure requiring mechanical ventilation 4. symptomatic triple-vessel coronary artery disease status post 2 vessel coronary bypass grafting surgery 5. Diabetes mellitus type 2 PLAN: -Continue antibiotics -Continue supportive care -DVT prophylaxis subcu Heparin and GI prophylaxis Protonix Physician Billing Administrator note has been reviewed by physician. Signing provider agrees with the documented findings, assessment, and plan of care. Objective - Vital Signs Vital signs: Vital Signs Temp 97.7 F 08/03/20 12:15 Pulse 65 08/03/20 12:15 Resp 27 H 08/03/20 12:15 BP 111/49 08/03/20 12:15 Pulse Ox 100 08/03/20 12:15 Intake & Output 08/02/20 08/03/20 08/03/20 18:59 06:59 18:59 Intake Total 4932.655 3041.652 1358.307 Output Total 530 775 440 Balance 4402.655 2266.652 918.307 Weight 98.9 kg 109.2 kg Intake: IV 3146 1182 806 Albumin Human 5% 500 ml 500 In Empty Bag 1 bag @ 500 mls/hr IVPB ONCE ONE Rx#: [id number] Anidulafungin 200 mg In 200 Sodium Chloride 0.9% 200 ml @ 84 mls/hr IVPB ONCE ONE Rx#:[id number] Calcium Gluconate 1 gm In 100 Sodium Chloride 0.9% 100 ml @ 100 mls/hr IVPB ONCE ONE Rx#:[id number] Fat Emulsion 20% 250 ml 10 In Empty Bag 1 bag @ 21 mls/hr IV [id number] [facility] Rx#:[id number] Piperacillin-Tazobactam 3 100 .375 gm In Sodium Chloride 0.9% 100 ml @ 25 mls/hr IVPB Q8HR [facility] Rx# :[id number] Sodium Chloride 0.9% 1, 140 210 120 000 ml @ 20 mls/hr IV . Q24H [facility] Rx#:[id number] Sodium Chloride 0.9% 1, 1000 000 ml @ 999 mls/hr IV . Q1H1M [facility] Rx#:[id number] TPN 730 900 450 pressure bag 66 72 36 Intake, IV Titration 156.501 0574.652 552.307 Amount Amiodarone 300 mg In 250 225.833 250 Dextrose 5% in Water 250 ml @ 0.5 MG/MIN 25 mls/hr IV .Q10H [facility] Rx#: [id number] Insulin Regular 100 unit 35.850 5.083 In Sodium Chloride 0.9% 100 ml @ Per Protocol IV .Q0M [facility] Rx#:[id number] Mvi, Adult No.4 with Vit 710 K 10 ml Trace (Conc-1Ml/ Dose) 1 ml Parenteral Electrolytes 20 ml Sodium Chloride 2.5MEQ/ml Vial 10 meq Calcium Gluconate 1 gm In Amino Acid 5%- D15w 1,000 ml @ 75 mls/hr IV .BY DURATION [facility] Rx#: [id number] Norepinephrine 8 mg In 506.655 322.641 181.574 Sodium Chloride 0.9% 250 ml @ 0.05 MCG/KG/MIN 10. 846 mls/hr IV .[id number] [facility] Rx#:[id number] propofoL 1,000 mg In 100.000 105.328 115.650 Empty Bag 1 bag @ Titrate IV .Q0M [facility] Rx#: [id number] Blood Product 930 310 Rc As-1 Unit 310 [id number] Rc As-1 Unit 0 310 [id number] Rc As-1 Unit 310 [id number] Other 150 Rc As-1 Unit 150 [id number] Output: Gastric Drainage 350 Urine 430 425 440 Emesis 0 0 Estimated Blood Loss 100 Other: Voiding Method Indwelling Catheter Indwelling Catheter Indwelling Catheter ABP, PAP, CO, CI - Last Documented Arterial Blood Pressure 129/44 Pulmonary Artery Pressure 33/14 Cardiac Output 6.7 Cardiac Index 3.1 - Labs CBC & Chem 7: 08/03/20 04:14 08/03/20 04:14 Labs: Abnormal Lab Results - Last 24 Hours (Table) 08/02/20 08/02/20 08/02/20 Range/Units 07:55 16:04 17:01 WBC (3.8-10.6) k/uL RBC (4.30-5.90) m/uL Hgb (13.0-17.5) gm/dL Hct (39.0-53.0) % RDW (11.5-15.5) % Plt Count (150-450) k/uL Neutrophils # (Manual) (1.3-7.7) k/uL PT (9.0-12.0) sec INR (<1.2) ABG pH 7.30 L (7.35-7.45) ABG pO2 82 L (83-108) mmHg ABG O2 Saturation (94-97) % Sodium (137-145) mmol/L Carbon Dioxide (22-30) mmol/L BUN (9-20) mg/dL Creatinine (0.66-1.25) mg/dL Glucose (74-99) mg/dL POC Glucose (mg/dL) 281 H (75-99) mg/dL Calcium (8.4-10.2) mg/dL Total Bilirubin (0.2-1.3) mg/dL AST (17-59) U/L ALT (4-49) U/L Alkaline Phosphatase (38-126) U/L C-Reactive Protein (<10.0) mg/L Total Protein (6.3-8.2) g/dL Albumin (3.5-5.0) g/dL Urine Blood (Negative) Ur Leukocyte Esterase (Negative) Urine RBC (0-5) /hpf Urine Bacteria (None) /hpf Urine Mucus (None) /hpf Crossmatch See Detail 08/02/20 08/02/20 08/02/20 Range/Units 18:22 19:17 21:23 WBC (3.8-10.6) k/uL RBC (4.30-5.90) m/uL Hgb (13.0-17.5) gm/dL Hct (39.0-53.0) % RDW (11.5-15.5) % Plt Count (150-450) k/uL Neutrophils # (Manual) (1.3-7.7) k/uL PT (9.0-12.0) sec INR (<1.2) ABG pH 7.33 L (7.35-7.45) ABG pO2 (83-108) mmHg ABG O2 Saturation 97.8 H (94-97) % Sodium (137-145) mmol/L Carbon Dioxide (22-30) mmol/L BUN (9-20) mg/dL Creatinine (0.66-1.25) mg/dL Glucose (74-99) mg/dL POC Glucose (mg/dL) 255 H (75-99) mg/dL Calcium (8.4-10.2) mg/dL Total Bilirubin (0.2-1.3) mg/dL AST (17-59) U/L ALT (4-49) U/L Alkaline Phosphatase (38-126) U/L C-Reactive Protein (<10.0) mg/L Total Protein (6.3-8.2) g/dL Albumin (3.5-5.0) g/dL Urine Blood Moderate H (Negative) Ur Leukocyte Esterase Trace H (Negative) Urine RBC 16 H (0-5) /hpf Urine Bacteria Rare H (None) /hpf Urine Mucus Rare H (None) /hpf Crossmatch 08/02/20 08/02/20 08/03/20 Range/Units 22:15 23:38 01:04 WBC 27.8 H (3.8-10.6) k/uL RBC 3.07 L (4.30-5.90) m/uL Hgb 9.5 L (13.0-17.5) gm/dL Hct 29.4 L (39.0-53.0) % RDW 17.7 H (11.5-15.5) % Plt Count (150-450) k/uL Neutrophils # (Manual) (1.3-7.7) k/uL PT (9.0-12.0) sec INR (<1.2) ABG pH (7.35-7.45) ABG pO2 (83-108) mmHg ABG O2 Saturation (94-97) % Sodium (137-145) mmol/L Carbon Dioxide (22-30) mmol/L BUN (9-20) mg/dL Creatinine (0.66-1.25) mg/dL Glucose (74-99) mg/dL POC Glucose (mg/dL) 263 H 243 H (75-99) mg/dL Calcium (8.4-10.2) mg/dL Total Bilirubin (0.2-1.3) mg/dL AST (17-59) U/L ALT (4-49) U/L Alkaline Phosphatase (38-126) U/L C-Reactive Protein (<10.0) mg/L Total Protein (6.3-8.2) g/dL Albumin (3.5-5.0) g/dL Urine Blood (Negative) Ur Leukocyte Esterase (Negative) Urine RBC (0-5) /hpf Urine Bacteria (None) /hpf Urine Mucus (None) /hpf Crossmatch 08/03/20 08/03/20 08/03/20 Range/Units 02:00 02:53 04:13 WBC (3.8-10.6) k/uL RBC (4.30-5.90) m/uL Hgb (13.0-17.5) gm/dL Hct (39.0-53.0) % RDW (11.5-15.5) % Plt Count (150-450) k/uL Neutrophils # (Manual) (1.3-7.7) k/uL PT (9.0-12.0) sec INR (<1.2) ABG pH (7.35-7.45) ABG pO2 (83-108) mmHg ABG O2 Saturation (94-97) % Sodium (137-145) mmol/L Carbon Dioxide (22-30) mmol/L BUN (9-20) mg/dL Creatinine (0.66-1.25) mg/dL Glucose (74-99) mg/dL POC Glucose (mg/dL) 211 H 201 H 177 H (75-99) mg/dL Calcium (8.4-10.2) mg/dL Total Bilirubin (0.2-1.3) mg/dL AST (17-59) U/L ALT (4-49) U/L Alkaline Phosphatase (38-126) U/L C-Reactive Protein (<10.0) mg/L Total Protein (6.3-8.2) g/dL Albumin (3.5-5.0) g/dL Urine Blood (Negative) Ur Leukocyte Esterase (Negative) Urine RBC (0-5) /hpf Urine Bacteria (None) /hpf Urine Mucus (None) /hpf Crossmatch 08/03/20 08/03/20 08/03/20 Range/Units 04:14 04:14 04:14 WBC 29.9 H (3.8-10.6) k/uL RBC 3.10 L (4.30-5.90) m/uL Hgb 9.5 L (13.0-17.5) gm/dL Hct 29.5 L (39.0-53.0) % RDW 17.2 H (11.5-15.5) % Plt Count 147 L (150-450) k/uL Neutrophils # (Manual) 27.80 H (1.3-7.7) k/uL PT 12.6 H (9.0-12.0) sec INR 1.2 H (<1.2) ABG pH (7.35-7.45) ABG pO2 (83-108) mmHg ABG O2 Saturation (94-97) % Sodium 135 L (137-145) mmol/L Carbon Dioxide 21 L (22-30) mmol/L BUN 99 H (9-20) mg/dL Creatinine 2.48 H (0.66-1.25) mg/dL Glucose 173 H (74-99) mg/dL POC Glucose (mg/dL) (75-99) mg/dL Calcium 8.0 L (8.4-10.2) mg/dL Total Bilirubin 1.6 H (0.2-1.3) mg/dL AST 189 H (17-59) U/L ALT 308 H (4-49) U/L Alkaline Phosphatase 36 L (38-126) U/L C-Reactive Protein (<10.0) mg/L Total Protein 4.2 L (6.3-8.2) g/dL Albumin 2.2 L (3.5-5.0) g/dL Urine Blood (Negative) Ur Leukocyte Esterase (Negative) Urine RBC (0-5) /hpf Urine Bacteria (None) /hpf Urine Mucus (None) /hpf Crossmatch 08/03/20 08/03/20 08/03/20 Range/Units 04:14 04:43 05:11 WBC (3.8-10.6) k/uL RBC (4.30-5.90) m/uL Hgb (13.0-17.5) gm/dL Hct (39.0-53.0) % RDW (11.5-15.5) % Plt Count (150-450) k/uL Neutrophils # (Manual) (1.3-7.7) k/uL PT (9.0-12.0) sec INR (<1.2) ABG pH 7.32 L (7.35-7.45) ABG pO2 (83-108) mmHg ABG O2 Saturation 97.4 H (94-97) % Sodium (137-145) mmol/L Carbon Dioxide (22-30) mmol/L BUN (9-20) mg/dL Creatinine (0.66-1.25) mg/dL Glucose (74-99) mg/dL POC Glucose (mg/dL) 204 H (75-99) mg/dL Calcium (8.4-10.2) mg/dL Total Bilirubin (0.2-1.3) mg/dL AST (17-59) U/L ALT (4-49) U/L Alkaline Phosphatase (38-126) U/L C-Reactive Protein 120.4 H (<10.0) mg/L Total Protein (6.3-8.2) g/dL Albumin (3.5-5.0) g/dL Urine Blood (Negative) Ur Leukocyte Esterase (Negative) Urine RBC (0-5) /hpf Urine Bacteria (None) /hpf Urine Mucus (None) /hpf Crossmatch 08/03/20 08/03/2020 Range/Units 06:06 07:09 08:11 WBC (3.8-10.6) k/uL RBC (4.30-5.90) m/uL Hgb (13.0-17.5) gm/dL Hct (39.0-53.0) % RDW (11.5-15.5) % Plt Count (150-450) k/uL Neutrophils # (Manual) (1.3-7.7) k/uL PT (9.0-12.0) sec INR (<1.2) ABG pH (7.35-7.45) ABG pO2 (83-108) mmHg ABG O2 Saturation (94-97) % Sodium (137-145) mmol/L Carbon Dioxide (22-30) mmol/L BUN (9-20) mg/dL Creatinine (0.66-1.25) mg/dL Glucose (74-99) mg/dL POC Glucose (mg/dL) 153 H 132 H 129 H (75-99) mg/dL Calcium (8.4-10.2) mg/dL Total Bilirubin (0.2-1.3) mg/dL AST (17-59) U/L ALT (4-49) U/L Alkaline Phosphatase (38-126) U/L C-Reactive Protein (<10.0) mg/L Total Protein (6.3-8.2) g/dL Albumin (3.5-5.0) g/dL Urine Blood (Negative) Ur Leukocyte Esterase (Negative) Urine RBC (0-5) /hpf Urine Bacteria (None) /hpf Urine Mucus (None) /hpf Crossmatch 08/03/20 08/03/20 Range/Units 09:44 11:21 WBC (3.8-10.6) k/uL RBC (4.30-5.90) m/uL Hgb (13.0-17.5) gm/dL Hct (39.0-53.0) % RDW (11.5-15.5) % Plt Count (150-450) k/uL Neutrophils # (Manual) (1.3-7.7) k/uL PT (9.0-12.0) sec INR (<1.2) ABG pH (7.35-7.45) ABG pO2 (83-108) mmHg ABG O2 Saturation (94-97) % Sodium (137-145) mmol/L Carbon Dioxide (22-30) mmol/L BUN (9-20) mg/dL Creatinine (0.66-1.25) mg/dL Glucose (74-99) mg/dL POC Glucose (mg/dL) 132 H 130 H (75-99) mg/dL Calcium (8.4-10.2) mg/dL Total Bilirubin (0.2-1.3) mg/dL AST (17-59) U/L ALT (4-49) U/L Alkaline Phosphatase (38-126) U/L C-Reactive Protein (<10.0) mg/L Total Protein (6.3-8.2) g/dL Albumin (3.5-5.0) g/dL Urine Blood (Negative) Ur Leukocyte Esterase (Negative) Urine RBC (0-5) /hpf Urine Bacteria (None) /hpf Urine Mucus (None) /hpf Crossmatch
[2020-08-03 13:14] LABS: Glucose,Whole Blood 132 mg/dL (75-99)
[2020-08-03 15:08] LABS: Glucose,Whole Blood 143 mg/dL (75-99)
--- NOTE | 2020-08-03 15:19 | P.PN ---
Subjective Progress Note Date: 08/03/20 Principal diagnosis: CABG Returned to OR yesterday after developing abdominal pain. Today he is POD #1 Exploratory laparotomy, washout of peritoneal cavity, ileostomy with small bowel resection. Patient's currently laying in the intensive care unit mechanically ventilated. Currently in controlled atrial fibrillation, remains on IV levo for hypotension, continues on IV amiodarone. NG tube in place to low intermittent suction with 350 mL green fluid last 24 hours, no bowel sounds. Abdomen is soft, remains on TPN. Objective - Vital Signs Vital signs: Vital Signs Temp 97.7 F 08/03/20 12:15 Pulse 63 08/03/20 15:00 Resp 27 H 08/03/20 15:00 BP 111/51 08/03/20 15:00 Pulse Ox 99 08/03/20 15:00 Intake & Output 08/02/20 08/03/20 08/03/20 18:59 06:59 18:59 Intake Total 4932.655 3041.652 1769.239 Output Total 530 775 930 Balance 4402.655 2266.652 839.239 Weight 98.9 kg 109.2 kg Intake: IV 3146 1182 1100 Albumin Human 5% 500 ml 500 In Empty Bag 1 bag @ 500 mls/hr IVPB ONCE ONE Rx#: [id number] Anidulafungin 200 mg In 200 Sodium Chloride 0.9% 200 ml @ 84 mls/hr IVPB ONCE ONE Rx#:[id number] Calcium Gluconate 1 gm In 100 Sodium Chloride 0.9% 100 ml @ 100 mls/hr IVPB ONCE [facility] Rx#:[id number] Fat Emulsion 20% 250 ml 10 In Empty Bag 1 bag @ 21 mls/hr IV [id number] [facility] Rx#:[id number] Piperacillin-Tazobactam 3 100 .375 gm In Sodium Chloride 0.9% 100 ml @ 25 mls/hr IVPB Q8HR [facility] Rx# :[id number] Sodium Chloride 0.9% 1, 140 210 180 000 ml @ 20 mls/hr IV . Q24H [facility] Rx#:[id number] Sodium Chloride 0.9% 1, 1000 000 ml @ 999 mls/hr IV . Q1H1M [facility] Rx#:[id number] TPN 730 900 675 pressure bag 66 72 45 Intake, IV Titration 953.314 8455.652 669.239 Amount Amiodarone 300 mg In 250 225.833 250 Dextrose 5% in Water 250 ml @ 0.5 MG/MIN 25 mls/hr IV .Q10H [facility] Rx#: [id number] Insulin Regular 100 unit 35.850 5.083 In Sodium Chloride 0.9% 100 ml @ Per Protocol IV .Q0M [facility] Rx#:[id number] Mvi, Adult No.4 with Vit 710 K 10 ml Trace (Conc-1Ml/ Dose) 1 ml Parenteral Electrolytes 20 ml Sodium Chloride 2.5MEQ/ml Vial 10 meq Calcium Gluconate 1 gm In Amino Acid 5%- D15w 1,000 ml @ 75 mls/hr IV .BY DURATION [facility] Rx#: [id number] Norepinephrine 8 mg In 506.655 322.641 239.128 Sodium Chloride 0.9% 250 ml @ 0.05 MCG/KG/MIN 10. 846 mls/hr IV .A01Q24V [facility] Rx#:[id number] propofoL 1,000 mg In 100.000 105.328 175.028 Empty Bag 1 bag @ Titrate IV .Q0M [facility] Rx#: [id number] Blood Product 930 310 Rc As-1 Unit 310 [id number] Rc As-1 Unit 0 310 [id number] Rc As-1 Unit 310 [id number] Other 150 Rc As-1 Unit 150 [id number] Output: Gastric Drainage 350 Urine 430 425 930 Emesis 0 0 Estimated Blood Loss 100 Other: Voiding Method Indwelling Catheter Indwelling Catheter Indwelling Catheter ABP, PAP, CO, CI - Last Documented Arterial Blood Pressure 122/42 Pulmonary Artery Pressure 33/14 Cardiac Output 6.7 Cardiac Index 3.1 - Exam General: [toxic], [no distress], [appears at stated age] Derm: [warm], [dry] Head: [atraumatic], [normocephalic], [symmetric] Eyes: [EOMI], [no lid lag], [anicteric sclera] Mouth: [no lip lesion], [mucus membranes moist] Cardiovascular: [S1S2 reg], [no murmur], [positive posterior tibial pulse bilateral], Lungs: [CTA bilateral], [no rhonchi, no rales] , [no accessory muscle use] Abdominal: [soft], [ nontender to palpation], [no guarding], [no appreciable organomegaly] Ext: [no gross muscle atrophy], [no edema], [no contractures] Neuro: [ CN II-XI grossly intact], [no focal neuro deficits] Psych: Sedated - Labs CBC & Chem 7: 08/03/20 04:14 08/03/20 04:14 Labs: Abnormal Lab Results - Last 24 Hours (Table) 08/02/20 08/02/20 08/02/20 Range/Units 07:55 16:04 17:01 WBC (3.8-10.6) k/uL RBC (4.30-5.90) m/uL Hgb (13.0-17.5) gm/dL Hct (39.0-53.0) % RDW (11.5-15.5) % Plt Count (150-450) k/uL Neutrophils # (Manual) (1.3-7.7) k/uL PT (9.0-12.0) sec INR (<1.2) ABG pH 7.30 L (7.35-7.45) ABG pO2 82 L (83-108) mmHg ABG O2 Saturation (94-97) % Sodium (137-145) mmol/L Carbon Dioxide (22-30) mmol/L BUN (9-20) mg/dL Creatinine (0.66-1.25) mg/dL Glucose (74-99) mg/dL POC Glucose (mg/dL) 281 H (75-99) mg/dL Calcium (8.4-10.2) mg/dL Total Bilirubin (0.2-1.3) mg/dL AST (17-59) U/L ALT (4-49) U/L Alkaline Phosphatase (38-126) U/L C-Reactive Protein (<10.0) mg/L Total Protein (6.3-8.2) g/dL Albumin (3.5-5.0) g/dL Urine Blood (Negative) Ur Leukocyte Esterase (Negative) Urine RBC (0-5) /hpf Urine Bacteria (None) /hpf Urine Mucus (None) /hpf Crossmatch See Detail 08/02/20 08/02/20 08/02/20 Range/Units 18:22 19:17 21:23 WBC (3.8-10.6) k/uL RBC (4.30-5.90) m/uL Hgb (13.0-17.5) gm/dL Hct (39.0-53.0) % RDW (11.5-15.5) % Plt Count (150-450) k/uL Neutrophils # (Manual) (1.3-7.7) k/uL PT (9.0-12.0) sec INR (<1.2) ABG pH 7.33 L (7.35-7.45) ABG pO2 (83-108) mmHg ABG O2 Saturation 97.8 H (94-97) % Sodium (137-145) mmol/L Carbon Dioxide (22-30) mmol/L BUN (9-20) mg/dL Creatinine (0.66-1.25) mg/dL Glucose (74-99) mg/dL POC Glucose (mg/dL) 255 H (75-99) mg/dL Calcium (8.4-10.2) mg/dL Total Bilirubin (0.2-1.3) mg/dL AST (17-59) U/L ALT (4-49) U/L Alkaline Phosphatase (38-126) U/L C-Reactive Protein (<10.0) mg/L Total Protein (6.3-8.2) g/dL Albumin (3.5-5.0) g/dL Urine Blood Moderate H (Negative) Ur Leukocyte Esterase Trace H (Negative) Urine RBC 16 H (0-5) /hpf Urine Bacteria Rare H (None) /hpf Urine Mucus Rare H (None) /hpf Crossmatch 08/02/20 08/02/20 08/03/20 Range/Units 22:15 23:38 01:04 WBC 27.8 H (3.8-10.6) k/uL RBC 3.07 L (4.30-5.90) m/uL Hgb 9.5 L (13.0-17.5) gm/dL Hct 29.4 L (39.0-53.0) % RDW 17.7 H (11.5-15.5) % Plt Count (150-450) k/uL Neutrophils # (Manual) (1.3-7.7) k/uL PT (9.0-12.0) sec INR (<1.2) ABG pH (7.35-7.45) ABG pO2 (83-108) mmHg ABG O2 Saturation (94-97) % Sodium (137-145) mmol/L Carbon Dioxide (22-30) mmol/L BUN (9-20) mg/dL Creatinine (0.66-1.25) mg/dL Glucose (74-99) mg/dL POC Glucose (mg/dL) 263 H 243 H (75-99) mg/dL Calcium (8.4-10.2) mg/dL Total Bilirubin (0.2-1.3) mg/dL AST (17-59) U/L ALT (4-49) U/L Alkaline Phosphatase (38-126) U/L C-Reactive Protein (<10.0) mg/L Total Protein (6.3-8.2) g/dL Albumin (3.5-5.0) g/dL Urine Blood (Negative) Ur Leukocyte Esterase (Negative) Urine RBC (0-5) /hpf Urine Bacteria (None) /hpf Urine Mucus (None) /hpf Crossmatch 08/03/20 08/03/20 08/03/20 Range/Units 02:00 02:53 04:13 WBC (3.8-10.6) k/uL RBC (4.30-5.90) m/uL Hgb (13.0-17.5) gm/dL Hct (39.0-53.0) % RDW (11.5-15.5) % Plt Count (150-450) k/uL Neutrophils # (Manual) (1.3-7.7) k/uL PT (9.0-12.0) sec INR (<1.2) ABG pH (7.35-7.45) ABG pO2 (83-108) mmHg ABG O2 Saturation (94-97) % Sodium (137-145) mmol/L Carbon Dioxide (22-30) mmol/L BUN (9-20) mg/dL Creatinine (0.66-1.25) mg/dL Glucose (74-99) mg/dL POC Glucose (mg/dL) 211 H 201 H 177 H (75-99) mg/dL Calcium (8.4-10.2) mg/dL Total Bilirubin (0.2-1.3) mg/dL AST (17-59) U/L ALT (4-49) U/L Alkaline Phosphatase (38-126) U/L C-Reactive Protein (<10.0) mg/L Total Protein (6.3-8.2) g/dL Albumin (3.5-5.0) g/dL Urine Blood (Negative) Ur Leukocyte Esterase (Negative) Urine RBC (0-5) /hpf Urine Bacteria (None) /hpf Urine Mucus (None) /hpf Crossmatch 08/03/20 08/03/20 08/03/20 Range/Units 04:14 04:14 04:14 WBC 29.9 H (3.8-10.6) k/uL RBC 3.10 L (4.30-5.90) m/uL Hgb 9.5 L (13.0-17.5) gm/dL Hct 29.5 L (39.0-53.0) % RDW 17.2 H (11.5-15.5) % Plt Count 147 L (150-450) k/uL Neutrophils # (Manual) 27.80 H (1.3-7.7) k/uL PT 12.6 H (9.0-12.0) sec INR 1.2 H (<1.2) ABG pH (7.35-7.45) ABG pO2 (83-108) mmHg ABG O2 Saturation (94-97) % Sodium 135 L (137-145) mmol/L Carbon Dioxide 21 L (22-30) mmol/L BUN 99 H (9-20) mg/dL Creatinine 2.48 H (0.66-1.25) mg/dL Glucose 173 H (74-99) mg/dL POC Glucose (mg/dL) (75-99) mg/dL Calcium 8.0 L (8.4-10.2) mg/dL Total Bilirubin 1.6 H (0.2-1.3) mg/dL AST 189 H (17-59) U/L ALT 308 H (4-49) U/L Alkaline Phosphatase 36 L (38-126) U/L C-Reactive Protein (<10.0) mg/L Total Protein 4.2 L (6.3-8.2) g/dL Albumin 2.2 L (3.5-5.0) g/dL Urine Blood (Negative) Ur Leukocyte Esterase (Negative) Urine RBC (0-5) /hpf Urine Bacteria (None) /hpf Urine Mucus (None) /hpf Crossmatch 08/03/20 08/03/20 08/03/20 Range/Units 04:14 04:43 05:11 WBC (3.8-10.6) k/uL RBC (4.30-5.90) m/uL Hgb (13.0-17.5) gm/dL Hct (39.0-53.0) % RDW (11.5-15.5) % Plt Count (150-450) k/uL Neutrophils # (Manual) (1.3-7.7) k/uL PT (9.0-12.0) sec INR (<1.2) ABG pH 7.32 L (7.35-7.45) ABG pO2 (83-108) mmHg ABG O2 Saturation 97.4 H (94-97) % Sodium (137-145) mmol/L Carbon Dioxide (22-30) mmol/L BUN (9-20) mg/dL Creatinine (0.66-1.25) mg/dL Glucose (74-99) mg/dL POC Glucose (mg/dL) 204 H (75-99) mg/dL Calcium (8.4-10.2) mg/dL Total Bilirubin (0.2-1.3) mg/dL AST (17-59) U/L ALT (4-49) U/L Alkaline Phosphatase (38-126) U/L C-Reactive Protein 120.4 H (<10.0) mg/L Total Protein (6.3-8.2) g/dL Albumin (3.5-5.0) g/dL Urine Blood (Negative) Ur Leukocyte Esterase (Negative) Urine RBC (0-5) /hpf Urine Bacteria (None) /hpf Urine Mucus (None) /hpf Crossmatch 08/03/20 08/03/20 08/03/20 Range/Units 06:06 07:09 08:11 WBC (3.8-10.6) k/uL RBC (4.30-5.90) m/uL Hgb (13.0-17.5) gm/dL Hct (39.0-53.0) % RDW (11.5-15.5) % Plt Count (150-450) k/uL Neutrophils # (Manual) (1.3-7.7) k/uL PT (9.0-12.0) sec INR (<1.2) ABG pH (7.35-7.45) ABG pO2 (83-108) mmHg ABG O2 Saturation (94-97) % Sodium (137-145) mmol/L Carbon Dioxide (22-30) mmol/L BUN (9-20) mg/dL Creatinine (0.66-1.25) mg/dL Glucose (74-99) mg/dL POC Glucose (mg/dL) 153 H 132 H 129 H (75-99) mg/dL Calcium (8.4-10.2) mg/dL Total Bilirubin (0.2-1.3) mg/dL AST (17-59) U/L ALT (4-49) U/L Alkaline Phosphatase (38-126) U/L C-Reactive Protein (<10.0) mg/L Total Protein (6.3-8.2) g/dL Albumin (3.5-5.0) g/dL Urine Blood (Negative) Ur Leukocyte Esterase (Negative) Urine RBC (0-5) /hpf Urine Bacteria (None) /hpf Urine Mucus (None) /hpf Crossmatch 08/03/20 08/03/20 08/03/20 Range/Units 09:44 11:21 13:13 WBC (3.8-10.6) k/uL RBC (4.30-5.90) m/uL Hgb (13.0-17.5) gm/dL Hct (39.0-53.0) % RDW (11.5-15.5) % Plt Count (150-450) k/uL Neutrophils # (Manual) (1.3-7.7) k/uL PT (9.0-12.0) sec INR (<1.2) ABG pH (7.35-7.45) ABG pO2 (83-108) mmHg ABG O2 Saturation (94-97) % Sodium (137-145) mmol/L Carbon Dioxide (22-30) mmol/L BUN (9-20) mg/dL Creatinine (0.66-1.25) mg/dL Glucose (74-99) mg/dL POC Glucose (mg/dL) 132 H 130 H 132 H (75-99) mg/dL Calcium (8.4-10.2) mg/dL Total Bilirubin (0.2-1.3) mg/dL AST (17-59) U/L ALT (4-49) U/L Alkaline Phosphatase (38-126) U/L C-Reactive Protein (<10.0) mg/L Total Protein (6.3-8.2) g/dL Albumin (3.5-5.0) g/dL Urine Blood (Negative) Ur Leukocyte Esterase (Negative) Urine RBC (0-5) /hpf Urine Bacteria (None) /hpf Urine Mucus (None) /hpf Crossmatch Assessment and Plan Plan: Coronary artery disease -Status post coronary artery bypass grafting -Cardiothoracic and cardiology following DM 2 - Currently on insulin drip - A1C from 06/21/2020 5.2, anticipate discharge home back on metformin which may be able to come off in the near future in the outpatient setting. Small Bowel Ischemia with subseqent Intraperitoneal hemorrhage - s/p second bowel resection, POD 1, now with ileostomy - Still on IV Zosyn, day 10 Hypotension Likely sec to bowel ischemia, r/o sepsis On zosyn, anidulafungin added by ID On norepi currently A-fib with RVR On amio, eliquis d/melody CONNOR on CKD stage III Baseline cr 1.4-1.5 Likely cardiorenal syndrome, patient received contrast earlier in the admission. Avoid nephrotoxic meds Nephrology is following Pneumoperitoneum suspect secondary to mediastinal chest tubes -Tube d/melody -Resolved. COPD with acute exacerbation - On DuoNeb schedule Hypothyroidism status post partial thyroidectomy - synthroid Morbid obesity with BMI 30.5 -Outpatient structured weight loss Prognosis is poor
[2020-08-03 15:23] LABS: Magnesium 1.8 mg/dL (1.6-2.3); Potassium 3.6 mmol/L (3.5-5.1)
[2020-08-03 16:19] LABS: Glucose,Whole Blood 141 mg/dL (75-99)
--- NOTE | 2020-08-03 16:33 | P.PN ---
Subjective Progress Note Date: 08/03/20 Principal diagnosis: Status post CABG, postoperative day #15 79-year-old white male patient with past medical history of hypertension, hyperlipidemia, moderate to severe COPD with the baseline FEV1 of 56% of predicted who came in on 07/18/2020 for elective two-vessel bypass grafting with PABLO to LAD, and SVG to the PDA. He was seen in the intensive care unit following surgery, patient was successfully weaned and extubated from mechanical ventilator and under 6 hours following his OR exit, is currently awake and alert, sitting in the chair, he is currently on 2 L of oxygen, his pulse ox is 98%, hemodynamically he stable, blood pressure is 106/51, PA pressures 35/11, CVP is 8, no fever or chills, IV fluids including the 0.9 normal saline at a rate of 30 ML per hour, insulin is 4.5 units per hour, no vasoactive drips. Today's chest x-ray shows a pneumoperitoneum with lucency present underneath the right hemidiaphragm. He has left pleural and mediastinal chest tube, and there has been 500 mL of serosanguineous output from the left pleural and 350 mL from the mediastinal chest tube in the last 24 hours. Is having some mild discomfort under the right rib cage, but no acute distress, abdomen is distended but soft, he is hemodynamically stable, he is in sinus mechanism, no nausea vomiting or diarrhea. CT of the abdomen and pelvis is pending today's labs have been reviewed, showing white blood cell count of 11.9, hemoglobin of 9, sodium is 133, the rest of the electrolytes were within normal limits, B1 is 25 creatinine is 1.18 On 07/21/2020 patient seen in follow-up in the intensive care unit, today is postoperative day 3 status post three-vessel coronary artery bypass grafting, (patient became more short of breath, wheezy, patient has a known history of moderately severe COPD/emphysema, we started him on IV Solu-Medrol, and Pulmicort and Perforomist were added. This morning she remains on 3 L of oxygen his pulse ox is 94-95%, hemodynamically he stable, he just on plan and was seen and rated 20 ML per hour, insulin is a 2.5 units per hour, today's chest x-ray showing slight increased bibasilar atelectasis or infiltrates. He thinks the breathing treatments in the steroids have significantly helped, breathing easier, he is achieving 500-750 on his incentive spirometer, not able to bring up any sputum yet. he is currently sitting up in a chair, in no acute distress, his incisional pain is fairly well-controlled, patient had another episode of A. fib with RVR last night, he is back in sinus rhythm with a controlled rate this morning. He received a dose of Lasix this morning. Chest tubes have been discontinued. On 07/31/2020 patient seen in follow-up in the intensive care unit. He is postoperative day 12 status post three-vessel bypass grafting, and postoperative day #7 status post exploratory laparotomy and small bowel resection, he is awake and alert, he was extubated yesterday to a BiPAP support, this morning he remains on BiPAP, pressures of 10 and 5, and FiO2 of 35%, and his pulse ox is 100%, hemodynamically he stable, he is A. fib on a monitor with a rate of 98 BPM, he is currently on 9.9 normal seen at a rate of 10 ML per hour, insulin is at 2 units per hour, amiodarone at 0.5 mg per hour, heparin is at weight-based protocol, and TPN is a 75 ML per hour. Today's chest x-ray shows a stable portable chest, with bibasilar infiltrates greater on the right. She remains on Lasix at 40 mg every 12 hours, and he is negative fluid balance negative, at - 645 ML over the last 24 hours. No fever or chills, appears to be normally swollen, we will plus edema in lower extremities, his labs have been reviewed, showing white blood cell count 15.1, hemoglobin of 8, sodium of 132, potassium is 3.5, chloride is 100, his BUN is 63, and a creatinine is 1.94, calcitonin is trending down, down to 1.41 from 3.53. He remains on Zosyn or antibiotic coverage for evidence of Pseudomonas in his sputum culture. His NG tube in p lace to low intermittent suction, and there has been about 400 mL of bilious output in the last 24 hours, patient is passing gas but has not had any bowel movement yet. Surgical services are following. Reevaluated today on 08/01/20, patient remains in the ICU, presently on 5 L nasal cannula, was on BiPAP last night. Patient remains on TPN, amiodarone at 0.5 mg/m, he is also on insulin at 4 units per hour. Patient looks frail, he is postoperative day #13 status post CABG, and postoperative day #8 post exploratory laparotomy and small bowel resection. Patient was extubated on , intermittently on BiPAP especially at night. Patient is hemodynamically stable, not requiring any pressors. Remains on diuretics, and his chest x-ray today showed worsening bibasilar infiltrates and small effusions, remain empirically on antibiotics. Patient remains on Zosyn, and his sputum was positive for pseudomonas aeruginosa. WBC count is 17.7 hemoglobin is 7.9. Electrolytes are normal except for slightly low potassium of 3.3, renal profile is about the same as it has been in the last few days, BUN of 69 and creatinine of 1.89. Pro-calcitonin is coming down, it is 1.41 Reevaluated today on 08/02/20, over the last 24 hours, patient's clinical status has been deteriorating, he is developing hypotension requiring norepinephrine presently at 20 mcg/m, patient seems to be complaining of abdominal distention and tenderness, on physical examination his abdomen is quite tender. CBC showed leukocytosis with WBC count of 29.1. Hemoglobin is 6.8, there is positive bandemia noted on the differential. BUN is up to 91 creatinine 2.54, lactic acid is 1.4 this morning. ABG today showed a pO2 of 82 pCO2 of 51 pH of 7.29 patient has absent bowel sounds on examination, and his nasogastric tube continues to have significant drainage with bile colored drainage about 300 mL in the last 8 hours. Patient remains on TPN at 75 ML per hour, and he is also on amiodarone for atrial fibrillation. Rate seems to be controlled with amiodarone. Patient remains on Zosyn for antibiotics coverage. His sputum culture came back positive for Pseudomonas fluorescence. This was from 07/24/20. General surgery was notified about this condition and the patient will undergo expiratory laparotomy again today. This is supposed to be done as soon as possible. Patient was intubated in the ICU by [facility], chest x-ray showed bibasilar atelectasis and small pleural effusions today. His ventilator setti ngs at present are assist control rate of 24 volume is 500 FiO2 is 50% PEEP is 5. ABG post intubation showed a pO2 of 292 pCO2 of 52 pH of 7.28. Hence FiO2 was cut down to 50%. And The vent settings otherwise the same. Reevaluated today on 08/03/20, patient remains in the ICU, patient had another exploratory laparotomy yesterday, and he was found to have significant amount of blood in the peritoneal cavity. Ended up with expiratory laparotomy and ileostomy with small bowel resection. Patient is now postoperative day #17, double coronary artery bypass grafting postoperative day #10 small bowel resection postoperative day #1 expiratory laparotomy washout of peritoneal cavity and ileostomy. Patient was sent back to the ICU on mechanical ventilation, and he remains intubated and mechanically ventilated. Patient is sedated, he is requiring significant amount of norepinephrine at 17 mcg/m, he is on propofol at 50 mcg/kg/m amiodarone 0.5 mg/m patient is also on TPN and on insulin at 4 units per hour. His ventilator settings are assist control rate 24 tidal volume is 500 FiO2 is 40% PEEP is 5 ABG showed a pO2 of 86 pCO2 of 42 pH of 7.32. Considering his peritoneal bleeding, it was recommended by surgery not to use any high-dose Lovenox, patient is on only subcu heparin. Also recommended by surgery not to wean and I believe the patient is not amenable at this point, especially with him requiring norepinephrine and he is hemodynamically considered unstable. Patient is in atrial fibrillation rate of 97 but seems to be controlled. Urine output is about 50 mL per hour. Chest x- ray showed bilateral pleural effusions. Patient is receiving albumin and diuretics. Today we went ahead and removed his right femoral arterial line, and placed a new left radial arterial line. Objective - Vital Signs Vital signs: Vital Signs Temp 97.7 F 08/03/20 12:15 Pulse 62 08/03/20 16:24 Resp 26 H 08/03/20 16:15 BP 108/47 08/03/20 16:15 Pulse Ox 98 08/03/20 16:15 Intake & Output 08/02/20 08/03/20 08/03/20 18:59 06:59 18:59 Intake Total 4932.655 3041.652 2004.364 Output Total 136 087 1695 Balance 4402.655 2266.652 874.364 Weight 98.9 kg 109.2 kg Intake: IV 3146 1182 1298 Albumin Human 5% 500 ml 500 In Empty Bag 1 bag @ 500 mls/hr IVPB ONCE ONE Rx#: [id number] Anidulafungin 200 mg In 200 Sodium Chloride 0.9% 200 ml @ 84 mls/hr IVPB ONCE ONE Rx#:[id number] Calcium Gluconate 1 gm In 100 Sodium Chloride 0.9% 100 ml @ 100 mls/hr IVPB ONCE ONE Rx#:[id number] Fat Emulsion 20% 250 ml 10 In Empty Bag 1 bag @ 21 mls/hr IV [id number] [facility] Rx#:[id number] Piperacillin-Tazobactam 3 100 100 .375 gm In Sodium Chloride 0.9% 100 ml @ 25 mls/hr IVPB Q8HR [facility] Rx# :[id number] Sodium Chloride 0.9% 1, 140 210 200 000 ml @ 20 mls/hr IV . Q24H [facility] Rx#:[id number] Sodium Chloride 0.9% 1, 1000 000 ml @ 999 mls/hr IV . Q1H1M ONE Rx#:[id number] TPN 730 900 750 pressure bag 66 72 48 Intake, IV Titration 807.748 9469.652 706.364 Amount Amiodarone 300 mg In 250 225.833 250 Dextrose 5% in Water 250 ml @ 0.5 MG/MIN 25 mls/hr IV .Q10H [facility] Rx#: [id number] Insulin Regular 100 unit 35.850 42.208 In Sodium Chloride 0.9% 100 ml @ Per Protocol IV .Q0M [facility] Rx#:[id number] Mvi, Adult No.4 with Vit 710 K 10 ml Trace (Conc-1Ml/ Dose) 1 ml Parenteral Electrolytes 20 ml Sodium Chloride 2.5MEQ/ml Vial 10 meq Calcium Gluconate 1 gm In Amino Acid 5%- D15w 1,000 ml @ 75 mls/hr IV .BY DURATION [facility] Rx#: [id number] Norepinephrine 8 mg In 506.655 322.641 239.128 Sodium Chloride 0.9% 250 ml @ 0.05 MCG/KG/MIN 10. 846 mls/hr IV .[id number] [facility] Rx#:[id number] propofoL 1,000 mg In 100.000 105.328 175.028 Empty Bag 1 bag @ Titrate IV .Q0M [facility] Rx#: [id number] Blood Product 930 310 Rc As-1 Unit 310 [id number] Rc As-1 Unit 0 310 [id number] Rc As-1 Unit 310 [id number] Other 150 Rc As-1 Unit 150 [id number] Output: Gastric Drainage 350 Urine 511 731 1745 Emesis 0 0 Estimated Blood Loss 100 Other: Voiding Method Indwelling Catheter Indwelling Catheter Indwelling Catheter ABP, PAP, CO, CI - Last Documented Arterial Blood Pressure 129/48 Pulmonary Artery Pressure 33/14 Cardiac Output 6.7 Cardiac Index 3.1 - Exam GENERAL EXAM: 80-year-old intubated mechanically ventilated, sedated, in no distress.. HEAD: Normocephalic/atraumatic. The tracheal tube is intact ENT: PERRLA, EOMI, no icterus, no neck masses, no JVD, no stridor. CHEST: No chest wall deformity. Symmetrical expansion. Sternal incision is clean dry and intact, chest tube sites clean dry and intact LUNGS: Equal air entry fine crackles at the base. CVS: irregular rate and rhythm, normal S1 and S2, no gallops, no murmurs, no rubs ABDOMEN: Distended abdomen, tenderness on palpation, no bowel sounds. Abdominal incision is clean. Ileostomy is noted EXTREMITIES: Trace of edema no clubbing no cyanosis. Pulses bilaterally.. MUSCULOSKELETAL: Could not assess, patient was generally weak. SKIN: No rashes CENTRAL NERVOUS SYSTEM: Not assessed, patient is intubated and mechanically ventilated. - Labs CBC & Chem 7: 08/03/20 04:14 08/03/20 15:04 Labs: Abnormal Lab Results - Last 24 Hours (Table) 08/02/20 08/02/20 08/02/20 Range/Units 07:55 17:01 18:22 WBC (3.8-10.6) k/uL RBC (4.30-5.90) m/uL Hgb (13.0-17.5) gm/dL Hct (39.0-53.0) % RDW (11.5-15.5) % Plt Count (150-450) k/uL Neutrophils # (Manual) (1.3-7.7) k/uL PT (9.0-12.0) sec INR (<1.2) ABG pH 7.33 L (7.35-7.45) ABG O2 Saturation 97.8 H (94-97) % Sodium (137-145) mmol/L Carbon Dioxide (22-30) mmol/L BUN (9-20) mg/dL Creatinine (0.66-1.25) mg/dL Glucose (74-99) mg/dL POC Glucose (mg/dL) 281 H (75-99) mg/dL Calcium (8.4-10.2) mg/dL Total Bilirubin (0.2-1.3) mg/dL AST (17-59) U/L ALT (4-49) U/L Alkaline Phosphatase (38-126) U/L C-Reactive Protein (<10.0) mg/L Total Protein (6.3-8.2) g/dL Albumin (3.5-5.0) g/dL Procalcitonin (0.02-0.09) ng/mL Urine Blood (Negative) Ur Leukocyte Esterase (Negative) Urine RBC (0-5) /hpf Urine Bacteria (None) /hpf Urine Mucus (None) /hpf Crossmatch See Detail 08/02/20 08/02/20 08/02/20 Range/Units 19:17 21:23 22:15 WBC 27.8 H (3.8-10.6) k/uL RBC 3.07 L (4.30-5.90) m/uL Hgb 9.5 L (13.0-17.5) gm/dL Hct 29.4 L (39.0-53.0) % RDW 17.7 H (11.5-15.5) % Plt Count (150-450) k/uL Neutrophils # (Manual) (1.3-7.7) k/uL PT (9.0-12.0) sec INR (<1.2) ABG pH (7.35-7.45) ABG O2 Saturation (94-97) % Sodium (137-145) mmol/L Carbon Dioxide (22-30) mmol/L BUN (9-20) mg/dL Creatinine (0.66-1.25) mg/dL Glucose (74-99) mg/dL POC Glucose (mg/dL) 255 H (75-99) mg/dL Calcium (8.4-10.2) mg/dL Total Bilirubin (0.2-1.3) mg/dL AST (17-59) U/L ALT (4-49) U/L Alkaline Phosphatase (38-126) U/L C-Reactive Protein (<10.0) mg/L Total Protein (6.3-8.2) g/dL Albumin (3.5-5.0) g/dL Procalcitonin (0.02-0.09) ng/mL Urine Blood Moderate H (Negative) Ur Leukocyte Esterase Trace H (Negative) Urine RBC 16 H (0-5) /hpf Urine Bacteria Rare H (None) /hpf Urine Mucus Rare H (None) /hpf Crossmatch 08/02/20 08/03/20 08/03/20 Range/Units 23:38 01:04 02:00 WBC (3.8-10.6) k/uL RBC (4.30-5.90) m/uL Hgb (13.0-17.5) gm/dL Hct (39.0-53.0) % RDW (11.5-15.5) % Plt Count (150-450) k/uL Neutrophils # (Manual) (1.3-7.7) k/uL PT (9.0-12.0) sec INR (<1.2) ABG pH (7.35-7.45) ABG O2 Saturation (94-97) % Sodium (137-145) mmol/L Carbon Dioxide (22-30) mmol/L BUN (9-20) mg/dL Creatinine (0.66-1.25) mg/dL Glucose (74-99) mg/dL POC Glucose (mg/dL) 263 H 243 H 211 H (75-99) mg/dL Calcium (8.4-10.2) mg/dL Total Bilirubin (0.2-1.3) mg/dL AST (17-59) U/L ALT (4-49) U/L Alkaline Phosphatase (38-126) U/L C-Reactive Protein (<10.0) mg/L Total Protein (6.3-8.2) g/dL Albumin (3.5-5.0) g/dL Procalcitonin (0.02-0.09) ng/mL Urine Blood (Negative) Ur Leukocyte Esterase (Negative) Urine RBC (0-5) /hpf Urine Bacteria (None) /hpf Urine Mucus (None) /hpf Crossmatch 08/03/20 08/03/20 08/03/20 Range/Units 02:53 04:13 04:14 WBC (3.8-10.6) k/uL RBC (4.30-5.90) m/uL Hgb (13.0-17.5) gm/dL Hct (39.0-53.0) % RDW (11.5-15.5) % Plt Count (150-450) k/uL Neutrophils # (Manual) (1.3-7.7) k/uL PT (9.0-12.0) sec INR (<1.2) ABG pH (7.35-7.45) ABG O2 Saturation (94-97) % Sodium 135 L (137-145) mmol/L Carbon Dioxide 21 L (22-30) mmol/L BUN 99 H (9-20) mg/dL Creatinine 2.48 H (0.66-1.25) mg/dL Glucose 173 H (74-99) mg/dL POC Glucose (mg/dL) 201 H 177 H (75-99) mg/dL Calcium 8.0 L (8.4-10.2) mg/dL Total Bilirubin 1.6 H (0.2-1.3) mg/dL AST 189 H (17-59) U/L ALT 308 H (4-49) U/L Alkaline Phosphatase 36 L (38-126) U/L C-Reactive Protein (<10.0) mg/L Total Protein 4.2 L (6.3-8.2) g/dL Albumin 2.2 L (3.5-5.0) g/dL Procalcitonin (0.02-0.09) ng/mL Urine Blood (Negative) Ur Leukocyte Esterase (Negative) Urine RBC (0-5) /hpf Urine Bacteria (None) /hpf Urine Mucus (None) /hpf Crossmatch 08/03/20 08/03/20 08/03/20 Range/Units 04:14 04:14 04:14 WBC 29.9 H (3.8-10.6) k/uL RBC 3.10 L (4.30-5.90) m/uL Hgb 9.5 L (13.0-17.5) gm/dL Hct 29.5 L (39.0-53.0) % RDW 17.2 H (11.5-15.5) % Plt Count 147 L (150-450) k/uL Neutrophils # (Manual) 27.80 H (1.3-7.7) k/uL PT 12.6 H (9.0-12.0) sec INR 1.2 H (<1.2) ABG pH (7.35-7.45) ABG O2 Saturation (94-97) % Sodium (137-145) mmol/L Carbon Dioxide (22-30) mmol/L BUN (9-20) mg/dL Creatinine (0.66-1.25) mg/dL Glucose (74-99) mg/dL POC Glucose (mg/dL) (75-99) mg/dL Calcium (8.4-10.2) mg/dL Total Bilirubin (0.2-1.3) mg/dL AST (17-59) U/L ALT (4-49) U/L Alkaline Phosphatase (38-126) U/L C-Reactive Protein 120.4 H (<10.0) mg/L Total Protein (6.3-8.2) g/dL Albumin (3.5-5.0) g/dL Procalcitonin (0.02-0.09) ng/mL Urine Blood (Negative) Ur Leukocyte Esterase (Negative) Urine RBC (0-5) /hpf Urine Bacteria (None) /hpf Urine Mucus (None) /hpf Crossmatch 08/03/20 08/03/20 08/03/20 Range/Units 04:14 04:43 05:11 WBC (3.8-10.6) k/uL RBC (4.30-5.90) m/uL Hgb (13.0-17.5) gm/dL Hct (39.0-53.0) % RDW (11.5-15.5) % Plt Count (150-450) k/uL Neutrophils # (Manual) (1.3-7.7) k/uL PT (9.0-12.0) sec INR (<1.2) ABG pH 7.32 L (7.35-7.45) ABG O2 Saturation 97.4 H (94-97) % Sodium (137-145) mmol/L Carbon Dioxide (22-30) mmol/L BUN (9-20) mg/dL Creatinine (0.66-1.25) mg/dL Glucose (74-99) mg/dL POC Glucose (mg/dL) 204 H (75-99) mg/dL Calcium (8.4-10.2) mg/dL Total Bilirubin (0.2-1.3) mg/dL AST (17-59) U/L ALT (4-49) U/L Alkaline Phosphatase (38-126) U/L C-Reactive Protein (<10.0) mg/L Total Protein (6.3-8.2) g/dL Albumin (3.5-5.0) g/dL Procalcitonin 2.26 H (0.02-0.09) ng/mL Urine Blood (Negative) Ur Leukocyte Esterase (Negative) Urine RBC (0-5) /hpf Urine Bacteria (None) /hpf Urine Mucus (None) /hpf Crossmatch 08/03/20 08/03/20 08/03/20 Range/Units 06:06 07:09 08:11 WBC (3.8-10.6) k/uL RBC (4.30-5.90) m/uL Hgb (13.0-17.5) gm/dL Hct (39.0-53.0) % RDW (11.5-15.5) % Plt Count (150-450) k/uL Neutrophils # (Manual) (1.3-7.7) k/uL PT (9.0-12.0) sec INR (<1.2) ABG pH (7.35-7.45) ABG O2 Saturation (94-97) % Sodium (137-145) mmol/L Carbon Dioxide (22-30) mmol/L BUN (9-20) mg/dL Creatinine (0.66-1.25) mg/dL Glucose (74-99) mg/dL POC Glucose (mg/dL) 153 H 132 H 129 H (75-99) mg/dL Calcium (8.4-10.2) mg/dL Total Bilirubin (0.2-1.3) mg/dL AST (17-59) U/L ALT (4-49) U/L Alkaline Phosphatase (38-126) U/L C-Reactive Protein (<10.0) mg/L Total Protein (6.3-8.2) g/dL Albumin (3.5-5.0) g/dL Procalcitonin (0.02-0.09) ng/mL Urine Blood (Negative) Ur Leukocyte Esterase (Negative) Urine RBC (0-5) /hpf Urine Bacteria (None) /hpf Urine Mucus (None) /hpf Crossmatch 08/03/20 08/03/20 08/03/20 Range/Units 09:44 11:21 13:13 WBC (3.8-10.6) k/uL RBC (4.30-5.90) m/uL Hgb (13.0-17.5) gm/dL Hct (39.0-53.0) % RDW (11.5-15.5) % Plt Count (150-450) k/uL Neutrophils # (Manual) (1.3-7.7) k/uL PT (9.0-12.0) sec INR (<1.2) ABG pH (7.35-7.45) ABG O2 Saturation (94-97) % Sodium (137-145) mmol/L Carbon Dioxide (22-30) mmol/L BUN (9-20) mg/dL Creatinine (0.66-1.25) mg/dL Glucose (74-99) mg/dL POC Glucose (mg/dL) 132 H 130 H 132 H (75-99) mg/dL Calcium (8.4-10.2) mg/dL Total Bilirubin (0.2-1.3) mg/dL AST (17-59) U/L ALT (4-49) U/L Alkaline Phosphatase (38-126) U/L C-Reactive Protein (<10.0) mg/L Total Protein (6.3-8.2) g/dL Albumin (3.5-5.0) g/dL Procalcitonin (0.02-0.09) ng/mL Urine Blood (Negative) Ur Leukocyte Esterase (Negative) Urine RBC (0-5) /hpf Urine Bacteria (None) /hpf Urine Mucus (None) /hpf Crossmatch 12/17/20 12/17/20 Range/Units 15:06 16:17 WBC (3.8-10.6) k/uL RBC (4.30-5.90) m/uL Hgb (13.0-17.5) gm/dL Hct (39.0-53.0) % RDW (11.5-15.5) % Plt Count (150-450) k/uL Neutrophils # (Manual) (1.3-7.7) k/uL PT (9.0-12.0) sec INR (<1.2) ABG pH (7.35-7.45) ABG O2 Saturation (94-97) % Sodium (137-145) mmol/L Carbon Dioxide (22-30) mmol/L BUN (9-20) mg/dL Creatinine (0.66-1.25) mg/dL Glucose (74-99) mg/dL POC Glucose (mg/dL) 143 H 141 H (75-99) mg/dL Calcium (8.4-10.2) mg/dL Total Bilirubin (0.2-1.3) mg/dL AST (17-59) U/L ALT (4-49) U/L Alkaline Phosphatase (38-126) U/L C-Reactive Protein (<10.0) mg/L Total Protein (6.3-8.2) g/dL Albumin (3.5-5.0) g/dL Procalcitonin (0.02-0.09) ng/mL Urine Blood (Negative) Ur Leukocyte Esterase (Negative) Urine RBC (0-5) /hpf Urine Bacteria (None) /hpf Urine Mucus (None) /hpf Crossmatch Assessment and Plan Assessment: #1. Symptomatic coronary artery disease, status post two-vessel coronary artery bypass grafting with PABLO to the LAD, SVG to the PDA, postoperative day #16 #2. Postoperative atrial fibrillation with rapid ventricular response requiring amiodarone and metoprolol, currently on heparin for anticoagulation #3. Acute ischemic small bowel, pneumatosis, status post exploratory laparotomy and small bowel resection, on 07/24/2020, today is postoperative day #10 #4. Acute hypoxic respiratory failure following bowel surgery, patient was extubated on 07/30/2022 BiPAP at night, and nasal cannula during the day. #5. Small atelectatic/pleural effusions involving both lung bases in addition to a small to moderate bilateral pleural effusion cannot rule out underlying in filtrate. Certainly secondary to Pseudomonas. #6. Evidence of Pseudomonas in the sputum culture, patient is covered with Zosyn for antibiotic coverage #7. History of coronary artery disease with previous stent placement #8. History of hypertension #9. History of hyperlipidemia #10. Acute on chronic kidney injury. #11. COPD moderate to severe with preop FEV1 of 53% of predicted #12. 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 Chronic kidney disease stage III at baseline #14. Diabetes mellitus type 2 #15. Postoperative acute blood loss anemia, expected outcome of open heart surgery #16. Postoperative paroxysmal A. fib, patient has had 2 episodes of A. fib with RVR in the postoperative period #17. Hypothyroidism status post partial thyroidectomy #18. Status post exploratory laparotomy and ileostomy postoperative day #1 Recommendation: Continue hemodynamic support. Continue ventilatory support. Continue same ventilator settings. Not ready for any weaning considering the patient is requiring significant amount of norepinephrine at this point. Continue Zosyn. Continue present supportive care measures Continue TPN. Continue low-dose aspirin and beta blockers. Continue amiodarone. Continue GI and DVT prophylaxis. Subcu heparin Discontinue right femoral arterial line and place a new left radial arterial line. Prognosis is definitely poor and guarded. We'll continue to follow. Critical care time is over 30 minutes Time with Patient: Greater than 30
--- NOTE | 2020-08-03 17:27 | PCN ---
PROCEDURE NOTE PROCEDURE REPORT: Placement of the left radial arterial line. PREOPERATIVE DIAGNOSIS: Acute hypoxic respiratory failure. POSTOPERATIVE DIAGNOSIS: Acute hypoxic respiratory failure. ANESTHESIA: None deployed. The left wrist was prepared in a sterile fashion. Drapes were applied. Left radial artery was palpated, cannulated easily. A guidewire was placed. A Cook catheter was inserted over the guidewire, guidewire was removed. Good blood flow, good waveform noted, no evidence of any immediate complications. The line was secured using 3.0 silk sutures. MMODL / IJN: [id number] /
[2020-08-03 17:29] LABS: Glucose,Whole Blood 112 mg/dL (75-99)
[2020-08-03 18:28] LABS: Glucose,Whole Blood 130 mg/dL (75-99)
[2020-08-03 19:07] LABS: Glucose,Whole Blood 134 mg/dL (75-99)
[2020-08-03] MEDS ORDERED: Potassium Replacement Protocol 1 EACH MISC MISCELLANE PRN (19:14)
[2020-08-03] MEDS ORDERED: Magnesium Replacement Protocol 1 EACH MISC MISCELLANE PRN (19:15)
[2020-08-03 20:02] LABS: Glucose,Whole Blood 163 mg/dL (75-99)
[2020-08-03] MEDS: MAGNESIUM SULFATE-D5W PMX 1 GM in DEXTROSE/WATER 1 100ML.BAG IVPB SCH ×2 (21:46→23:36)
[2020-08-03] MEDS: SODIUM CHLORIDE 0.9% 1,000 ML IV SCH (21:46)
[2020-08-03 22:03] LABS: Glucose,Whole Blood 148 mg/dL (75-99)
[2020-08-03 23:48] LABS: Glucose,Whole Blood 162 mg/dL (75-99)
--- NOTE | 2020-08-03 23:48 | P.CONS ---
History of Present Illness - Reason for Consult Consult date: 08/03/20 leukocytosis Requesting physician: Jairon Macias - Chief Complaint weakness x few days - History of Present Illness Patient is a 80-year-old male electively admitted to the hospital more than 2 weeks ago in this patient who did have evidence of coronary artery di sease and the patient is status post double coronary bypass grafting on July 21, 2020 patient postoperative course complicated by acute blood loss anemia and did have evidence of pneumoperitoneum pneumatosis of the small bowel patient was taken to the OR and is status post small bowel resection and primary anastomosis patient was taken back to the OR yesterday and this patient status post explo ratory laparotomy washout of the peritoneal cavity and there was evidence of hematoma small bowel resection and ileostomy the patient remains to be intubated to be intubated on the vent patient did not have any fever however he noticed to have worsening of his white count which was up to 29.9 thousand today that has prompted this infectious disease consultation patient did have a UA done yesterday was not significantly positive patient did have a chest x-ray which shows persistent small bilateral pleural effusion and mild central venous congestion patient has been treated with Zosyn, patient did have right IJ patient been there for more than 10 days now and a possible getting taken out he also have right arm PICC line placed few days ago per nursing staff no significant purulent secretion through the ET and no diarrhea has been reported, most information has been obtained from review of the chart and nursing staff as the patient still requiring reliable history. 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, pneumonia in November, some decreased kidney function History of Any Multi-Drug Resistant Organisms: None Reported Past Surgical History: Heart Catheterization, Heart Catheterization With Stent Additional Past Surgical History / Comment(s): 1/2 thyroid removed, nessa cataract removal & lens implanted, lasik on nessa eyes, EGD Past Anesthesia/Blood Transfusion Reactions: No Reported Reaction Date of Last Stent Placement:: 2001 Past Psychological History: No Psychological Hx Reported Smoking Status: Former smoker Past Alcohol Use History: Occasional Additional Past Alcohol Use History / Comment(s): Drinks 2-3 glasses of wine approximately once a week-not lately, quit smoking 20 years ago Past Drug Use History: None Reported - Past Family History Mother Family Medical History: Cancer Additional Family Medical History / Comment(s): sx: appendix; CA: breast ( from) Father Family Medical History: COPD, CVA/TIA Additional Family Medical History / Comment(s): CVA in 1978 ( from), sinus sx Medications and Allergies Home Medications Medication Instructions Recorded Confirmed Type Albuterol Inhaler (Mhu) [Ventolin 2 puff INHALATION RT-QID PRN 12/11/15 07/14/20 History Hfa Inhaler] Aspirin [Adult Low Dose Aspirin EC] 81 mg PO DAILY 12/11/15 07/14/20 History Calcium Carbonate/Vitamin D3 1 tab PO W/LUNCH 12/11/15 07/18/20 History [Calcium 600 + Vit D 400 Tablet] Fluticasone/Salmeterol [Advair 1 puff INHALATION RT-BID 12/11/15 07/14/20 His tory 500-50 Diskus] Levothyroxine Sodium [Synthroid] 50 mcg PO DAILY 12/11/15 07/18/20 History Losartan Potassium [Cozaar] 100 mg PO DAILY 12/11/15 07/18/20 History Metoprolol Succinate (ER) [Toprol 100 mg PO DAILY 12/11/15 07/18/20 History Xl] Multivitamin [Men's Multi-Vitamin] 1 tab PO W/LUNCH 12/11/15 07/18/20 History Tiotropium 18 Mcg/Puff [Spiriva] 1 cap INHALATION RT-DAILY 12/11/15 07/14/20 History metFORMIN HCL [Glucophage] 500 mg PO PC-SUPPER 12/11/15 07/18/20 History Ipratropium [place] 0.06%Nasal 1 spray EA NOSTRIL QID PRN 12/04/19 07/18/20 History [Atrovent Nasal 0.06%] Isosorbide Mononitrate [Isosorbide 30 mg PO DAILY 06/20/20 07/18/20 History Mononitrate ER] Atorvastatin [Lipitor] 40 mg PO HS 07/14/20 07/18/20 History Fluticasone Nasal [place] [Flonase 2 spr EA NOSTRIL DAILY PRN 07/14/20 07/18/20 History Nasal [place]] Mupirocin 2% Oint [Bactroban 2% 1 applic NASAL BID 07/14/20 07/18/20 History Oint] Nitroglycerin Sl Tabs [Nitrostat] 0.4 mg SUBLINGUAL Q5M PRN 07/14/20 07/14/20 History Allergies Allergy/AdvReac Type Severity Reaction Status Date / Time No Known Allergies Allergy Verified 07/14/20 12:50 Physical Exam Vitals: Vital Signs Temp Pulse Resp BP Pulse Ox 08/03/20 21:30 65 23 99 08/03/20 21:15 64 26 H 99 08/03/20 21:00 65 27 H 110/51 99 08/03/20 20:45 65 25 H 99 08/03/20 20:30 66 27 H 100 08/03/20 20:15 65 26 H 99 08/03/20 20:02 66 08/03/20 20:00 98.1 F 63 23 112/47 100 08/03/20 19:52 66 08/03/20 19:51 66 08/03/20 19:45 64 24 100 08/03/20 19:41 65 08/03/20 19:30 64 28 H 99 08/03/20 19:15 65 27 H 99 08/03/20 19:00 64 26 H 99 08/03/20 18:45 65 27 H 99 08/03/20 18:30 64 24 99 08/03/20 18:15 64 26 H 107/45 99 08/03/20 18:00 64 27 H 99 08/03/20 17:45 64 28 H 99 20 17:30 63 25 H 99 08/03/20 17:15 63 29 H 107/45 99 08/03/20 17:00 64 27 H 99 08/03/20 16:45 64 29 H 99 20 16:30 64 25 H 99 20 16:24 62 20 16:15 63 26 H 108/47 98 08/03/20 16:10 63 08/03/20 16:00 97.1 F L 64 25 H 99 08/03/20 15:50 26 H 08/03/20 15:45 65 28 H 99 12/17/20 15:30 64 27 H 99 08/03/20 15:15 64 27 H 99 20 15:00 63 27 H 111/51 99 20 14:45 65 28 H 100 20 14:30 65 28 H 99 20 14:15 65 29 H 100 08/03/20 14:00 64 28 H 113/49 100 08/03/20 13:45 65 26 H 99 08/03/20 13:30 80 27 H 100 08/03/20 13:15 66 25 H 99 08/03/20 13:00 65 26 H 111/49 99 08/03/20 12:45 65 27 H 111/49 100 08/03/20 12:30 65 25 H 111/49 100 08/03/20 12:15 97.7 F 65 27 H 111/49 100 08/03/20 12:09 64 08/03/20 12:00 66 26 H 100 08/03/20 11:55 61 08/03/20 11:45 66 28 H 99 08/03/20 11:30 66 24 100 08/03/20 11:15 67 27 H 98 08/03/20 11:00 68 27 H 99 08/03/20 10:45 69 26 H 99 08/03/20 10:30 70 27 H 99 08/03/20 10:15 74 33 H 126/96 98 08/03/20 10:00 73 34 H 117/53 99 08/03/20 09:45 69 33 H 99 08/03/20 09:30 67 24 99 08/03/20 09:15 65 28 H 117/53 99 08/03/20 09:00 65 29 H 99 08/03/20 08:45 78 26 H 100 08/03/20 08:30 94 27 H 99 08/03/20 08:15 97.5 F L 79 25 H 110/71 99 08/03/20 08:10 33 H 08/03/20 08:02 89 08/03/20 08:00 92 25 H 99 08/03/20 07:50 90 08/03/20 07:49 90 08/03/20 07:45 82 21 100 08/03/20 07:36 86 08/03/20 07:30 78 27 H 100 08/03/20 07:15 85 25 H 100 08/03/20 07:00 91 26 H 100 08/03/20 06:45 86 27 H 99 08/03/20 06:30 81 30 H 99 08/03/20 06:15 87 26 H 108/54 99 08/03/20 06:00 96 27 H 99 08/03/20 05:45 96 27 H 99 08/03/20 05:30 92 25 H 98 08/03/20 05:15 81 35 H 100/54 98 08/03/20 05:00 95 36 H 98 08/03/20 04:45 82 26 H 97 08/03/20 04:30 78 28 H 97 08/03/20 04:15 84 26 H 95/59 97 08/03/20 04:00 96.8 F L 92 22 97 08/03/20 03:45 87 28 H 98 08/03/20 03:30 82 27 H 97 08/03/20 03:15 79 26 H 97 08/03/20 03:00 91 29 H 96 08/03/20 02:45 82 25 H 97 08/03/20 02:30 93 28 H 93 L 08/03/20 02:15 89 25 H 96 08/03/20 02:00 101 H 33 H 96 08/03/20 01:45 90 28 H 96 08/03/20 01:30 93 30 H 96 08/03/20 01:15 98 26 H 106/36 95 08/03/20 01:00 86 26 H 97 08/03/20 00:45 89 26 H 98 08/03/20 00:30 86 37 H 96 08/03/20 00:15 84 26 H 96/62 98 08/03/20 00:00 97.8 F 92 28 H 99 08/02/20 23:45 90 26 H 98 20 23:30 93 28 H 98 08/02/20 23:15 96 26 H 98 08/02/20 23:04 93 27 H 98 08/02/20 23:00 87 26 H 99 20 22:45 92 29 H 98 08/02/20 22:30 66 26 H 98 1620 22:15 65 30 H 98 20 22:00 66 28 H 144/70 98 08/02/20 21:45 66 27 H 144/70 98 Intake and Output 08/03/20 08/03/20 08/03/20 06:59 14:59 22:59 Intake Total 2097.326 1711.368 884.927 Output Total 460 790 825 Balance 1637.326 921.368 59.927 Intake: IV 788 1002 590 Anidulafungin 200 mg In 200 Sodium Chloride 0.9% 200 ml @ 84 mls/hr IVPB ONCE ONE Rx#:[id number] Piperacillin-Tazobactam 3 100 .375 gm In Sodium Chloride 0.9% 100 ml @ 25 mls/hr IVPB Q8HR [facility] Rx# :[id number] Sodium Chloride 0.9% 1, 140 160 100 000 ml @ 20 mls/hr IV . Q24H [facility] Rx#:[id number] TPN 600 600 375 pressure bag 48 42 15 Intake, IV Titration 1309.326 709.368 294.927 Amount Amiodarone 300 mg In 225.833 250 Dextrose 5% in Water 250 ml @ 0.5 MG/MIN 25 mls/hr IV .Q10H [facility] Rx#: [id number] Insulin Regular 100 unit 35.850 5.083 52.458 In Sodium Chloride 0.9% 100 ml @ Per Protocol IV .Q0M [facility] Rx#:[id number] Mvi, Adult No.4 with Vit 710 K 10 ml Trace (Conc-1Ml/ Dose) 1 ml Parenteral Electrolytes 20 ml Sodium Chloride 2.5MEQ/ml Vial 10 meq Calcium Gluconate 1 gm In Amino Acid 5%- D15w 1,000 ml @ 75 mls/hr IV .BY DURATION [facility] Rx#: [id number] Norepinephrine 8 mg In 232.315 279.257 145.008 Sodium Chloride 0.9% 250 ml @ 0.05 MCG/KG/MIN 10. 846 mls/hr IV .[id number] [facility] Rx#:[id number] propofoL 1,000 mg In 105.328 175.028 97.461 Empty Bag 1 bag @ Titrate IV .Q0M [facility] Rx#: [id number] Output: Gastric Drainage 200 150 Urine 260 790 675 Emesis 0 Other: Voiding Method Indwelling Catheter Indwelling Catheter Indwelling Catheter Weight 109.2 kg ABP, PAP, CO, CI - Last 8 Hours Arterial Blood Pressure 132/48 Arterial Blood Pressure 115/43 Arterial Blood Pressure 121/45 Arterial Blood Pressure 127/46 Arterial Blood Pressure 96/39 Arterial Blood Pressure 130/46 Arterial Blood Pressure 116/45 Arterial Blood Pressure 120/41 Arterial Blood Pressure 125/41 Arterial Blood Pressure 126/42 Arterial Blood Pressure 127/43 Arterial Blood Pressure 132/45 Arterial Blood Pressure 138/46 Arterial Blood Pressure 117/41 Arterial Blood Pressure 118/42 Arterial Blood Pressure 125/44 Arterial Blood Pressure 128/45 Arterial Blood Pressure 123/43 Arterial Blood Pressure 123/44 Arterial Blood Pressure 125/44 Arterial Blood Pressure 132/44 Arterial Blood Pressure 129/48 Arterial Blood Pressure 122/45 Arterial Blood Pressure 124/46 Arterial Blood Pressure 133/47 Arterial Blood Pressure 115/40 Arterial Blood Pressure 122/42 Arterial Blood Pressure 123/42 Arterial Blood Pressure 132/43 Arterial Blood Pressure 132/45 Arterial Blood Pressure 122/42 Arterial Blood Pressure 125/42 GENERAL DESCRIPTION: Elderly male intubated on the vent, no distress. No tachypnea or accessory muscle of respiration use. HEENT: Shows Pallor , no scleral icterus. Patient is orally intubated NECK: Trachea central, no thyromegaly. LUNGS: Unlabored breathing. Decreased breath sound at the base riorly. No wheeze or crackle. HEART: S1, S2, regular rate and rhythm. ABDOMEN: Soft, no tenderness , guarding or rigidity EXTREMITIES: No edema of feet. SKIN: No rash, no masses palpable. NEUROLOGICAL: The patient is sedated on the vent Results CBC & Chem 7: 08/03/20 04:14 08/03/20 15:04 Labs: Abnormal Lab Results - Last 24 Hours (Table) 08/02/20 08/02/20 08/02/20 Range/Units 07:55 22:15 23:38 WBC 27.8 H (3.8-10.6) k/uL RBC 3.07 L (4.30-5.90) m/uL Hgb 9.5 L (13.0-17.5) gm/dL Hct 29.4 L (39.0-53.0) % RDW 17.7 H (11.5-15.5) % Plt Count (150-450) k/uL Neutrophils # (Manual) (1.3-7.7) k/uL PT (9.0-12.0) sec INR (<1.2) ABG pH (7.35-7.45) ABG O2 Saturation (94-97) % Sodium (137-145) mmol/L Carbon Dioxide (22-30) mmol/L BUN (9-20) mg/dL Creatinine (0.66-1.25) mg/dL Glucose (74-99) mg/dL POC Glucose (mg/dL) 263 H (75-99) mg/dL Calcium (8.4-10.2) mg/dL Total Bilirubin (0.2-1.3) mg/dL AST (17-59) U/L ALT (4-49) U/L Alkaline Phosphatase (38-126) U/L C-Reactive Protein (<10.0) mg/L Total Protein (6.3-8.2) g/dL Albumin (3.5-5.0) g/dL Procalcitonin (0.02-0.09) ng/mL Crossmatch See Detail 08/03/20 08/03/20 08/03/20 Range/Units 01:04 02:00 02:53 WBC (3.8-10.6) k/uL RBC (4.30-5.90) m/uL Hgb (13.0-17.5) gm/dL Hct (39.0-53.0) % RDW (11.5-15.5) % Plt Count (150-450) k/uL Neutrophils # (Manual) (1.3-7.7) k/uL PT (9.0-12.0) sec INR (<1.2) ABG pH (7.35-7.45) ABG O2 Saturation (94-97) % Sodium (137-145) mmol/L Carbon Dioxide (22-30) mmol/L BUN (9-20) mg/dL Creatinine (0.66-1.25) mg/dL Glucose (74-99) mg/dL POC Glucose (mg/dL) 243 H 211 H 201 H (75-99) mg/dL Calcium (8.4-10.2) mg/dL Total Bilirubin (0.2-1.3) mg/dL AST (17-59) U/L ALT (4-49) U/L Alkaline Phosphatase (38-126) U/L C-Reactive Protein (<10.0) mg/L Total Protein (6.3-8.2) g/dL Albumin (3.5-5.0) g/dL Procalcitonin (0.02-0.09) ng/mL Crossmatch 08/03/20 08/03/20 08/03/20 Range/Units 04:13 04:14 04:14 WBC 29.9 H (3.8-10.6) k/uL RBC 3.10 L (4.30-5.90) m/uL Hgb 9.5 L (13.0-17.5) gm/dL Hct 29.5 L (39.0-53.0) % RDW 17.2 H (11.5-15.5) % Plt Count 147 L (150-450) k/uL Neutrophils # (Manual) 27.80 H (1.3-7.7) k/uL PT (9.0-12.0) sec INR (<1.2) ABG pH (7.35-7.45) ABG O2 Saturation (94-97) % Sodium 135 L (137-145) mmol/L Carbon Dioxide 21 L (22-30) mmol/L BUN 99 H (9-20) mg/dL Creatinine 2.48 H (0.66-1.25) mg/dL Glucose 173 H (74-99) mg/dL POC Glucose (mg/dL) 177 H (75-99) mg/dL Calcium 8.0 L (8.4-10.2) mg/dL Total Bilirubin 1.6 H (0.2-1.3) mg/dL AST 189 H (17-59) U/L ALT 308 H (4-49) U/L Alkaline Phosphatase 36 L (38-126) U/L C-Reactive Protein (<10.0) mg/L Total Protein 4.2 L (6.3-8.2) g/dL Albumin 2.2 L (3.5-5.0) g/dL Procalcitonin (0.02-0.09) ng/mL Crossmatch 08/03/20 08/03/20 08/03/20 Range/Units 04:14 04:14 04:14 WBC (3.8-10.6) k/uL RBC (4.30-5.90) m/uL Hgb (13.0-17.5) gm/dL Hct (39.0-53.0) % RDW (11.5-15.5) % Plt Count (150-450) k/uL Neutrophils # (Manual) (1.3-7.7) k/uL PT 12.6 H (9.0-12.0) sec INR 1.2 H (<1.2) ABG pH (7.35-7.45) ABG O2 Saturation (94-97) % Sodium (137-145) mmol/L Carbon Dioxide (22-30) mmol/L BUN (9-20) mg/dL Creatinine (0.66-1.25) mg/dL Glucose (74-99) mg/dL POC Glucose (mg/dL) (75-99) mg/dL Calcium (8.4-10.2) mg/dL Total Bilirubin (0.2-1.3) mg/dL AST (17-59) U/L ALT (4-49) U/L Alkaline Phosphatase (38-126) U/L C-Reactive Protein 120.4 H (<10.0) mg/L Total Protein (6.3-8.2) g/dL Albumin (3.5-5.0) g/dL Procalcitonin 2.26 H (0.02-0.09) ng/mL Crossmatch 08/03/20 08/03/20 08/03/20 Range/Units 04:43 05:11 06:06 WBC (3.8-10.6) k/uL RBC (4.30-5.90) m/uL Hgb (13.0-17.5) gm/dL Hct (39.0-53.0) % RDW (11.5-15.5) % Plt Count (150-450) k/uL Neutrophils # (Manual) (1.3-7.7) k/uL PT (9.0-12.0) sec INR (<1.2) ABG pH 7.32 L (7.35-7.45) ABG O2 Saturation 97.4 H (94-97) % Sodium (137-145) mmol/L Carbon Dioxide (22-30) mmol/L BUN (9-20) mg/dL Creatinine (0.66-1.25) mg/dL Glucose (74-99) mg/dL POC Glucose (mg/dL) 204 H 153 H (75-99) mg/dL Calcium (8.4-10.2) mg/dL Total Bilirubin (0.2-1.3) mg/dL AST (17-59) U/L ALT (4-49) U/L Alkaline Phosphatase (38-126) U/L C-Reactive Protein (<10.0) mg/L Total Protein (6.3-8.2) g/dL Albumin (3.5-5.0) g/dL Procalcitonin (0.02-0.09) ng/mL Crossmatch 08/03/20 08/03/20 08/03/20 Range/Units 07:09 08:11 09:44 WBC (3.8-10.6) k/uL RBC (4.30-5.90) m/uL Hgb (13.0-17.5) gm/dL Hct (39.0-53.0) % RDW (11.5-15.5) % Plt Count (150-450) k/uL Neutrophils # (Manual) (1.3-7.7) k/uL PT (9.0-12.0) sec INR (<1.2) ABG pH (7.35-7.45) ABG O2 Saturation (94-97) % Sodium (137-145) mmol/L Carbon Dioxide (22-30) mmol/L BUN (9-20) mg/dL Creatinine (0.66-1.25) mg/dL Glucose (74-99) mg/dL POC Glucose (mg/dL) 132 H 129 H 132 H (75-99) mg/dL Calcium (8.4-10.2) mg/dL Total Bilirubin (0.2-1.3) mg/dL AST (17-59) U/L ALT (4-49) U/L Alkaline Phosphatase (38-126) U/L C-Reactive Protein (<10.0) mg/L Total Protein (6.3-8.2) g/dL Albumin (3.5-5.0) g/dL Procalcitonin (0.02-0.09) ng/mL Crossmatch 12/08/03/20 08/03/20 Range/Units 11:21 13:13 15:06 WBC (3.8-10.6) k/uL RBC (4.30-5.90) m/uL Hgb (13.0-17.5) gm/dL Hct (39.0-53.0) % RDW (11.5-15.5) % Plt Count (150-450) k/uL Neutrophils # (Manual) (1.3-7.7) k/uL PT (9.0-12.0) sec INR (<1.2) ABG pH (7.35-7.45) ABG O2 Saturation (94-97) % Sodium (137-145) mmol/L Carbon Dioxide (22-30) mmol/L BUN (9-20) mg/dL Creatinine (0.66-1.25) mg/dL Glucose (74-99) mg/dL POC Glucose (mg/dL) 130 H 132 H 143 H (75-99) mg/dL Calcium (8.4-10.2) mg/dL Total Bilirubin (0.2-1.3) mg/dL AST (17-59) U/L ALT (4-49) U/L Alkaline Phosphatase (38-126) U/L C-Reactive Protein (<10.0) mg/L Total Protein (6.3-8.2) g/dL Albumin (3.5-5.0) g/dL Procalcitonin (0.02-0.09) ng/mL Crossmatch 08/03/20 08/03/20 08/03/20 Range/Units 16:17 17:28 18:27 WBC (3.8-10.6) k/uL RBC (4.30-5.90) m/uL Hgb (13.0-17.5) gm/dL Hct (39.0-53.0) % RDW (11.5-15.5) % Plt Count (150-450) k/uL Neutrophils # (Manual) (1.3-7.7) k/uL PT (9.0-12.0) sec INR (<1.2) ABG pH (7.35-7.45) ABG O2 Saturation (94-97) % Sodium (137-145) mmol/L Carbon Dioxide (22-30) mmol/L BUN (9-20) mg/dL Creatinine (0.66-1.25) mg/dL Glucose (74-99) mg/dL POC Glucose (mg/dL) 141 H 112 H 130 H (75-99) mg/dL Calcium (8.4-10.2) mg/dL Total Bilirubin (0.2-1.3) mg/dL AST (17-59) U/L ALT (4-49) U/L Alkaline Phosphatase (38-126) U/L C-Reactive Protein (<10.0) mg/L Total Protein (6.3-8.2) g/dL Albumin (3.5-5.0) g/dL Procalcitonin (0.02-0.09) ng/mL Crossmatch 08/03/20 08/03/20 Range/Units 19:05 19:58 WBC (3.8-10.6) k/uL RBC (4.30-5.90) m/uL Hgb (13.0-17.5) gm/dL Hct (39.0-53.0) % RDW (11.5-15.5) % Plt Count (150-450) k/uL Neutrophils # (Manual) (1.3-7.7) k/uL PT (9.0-12.0) sec INR (<1.2) ABG pH (7.35-7.45) ABG O2 Saturation (94-97) % Sodium (137-145) mmol/L Carbon Dioxide (22-30) mmol/L BUN (9-20) mg/dL Creatinine (0.66-1.25) mg/dL Glucose (74-99) mg/dL POC Glucose (mg/dL) 134 H 163 H (75-99) mg/dL Calcium (8.4-10.2) mg/dL Total Bilirubin (0.2-1.3) mg/dL AST (17-59) U/L ALT (4-49) U/L Alkaline Phosphatase (38-126) U/L C-Reactive Protein (<10.0) mg/L Total Protein (6.3-8.2) g/dL Albumin (3.5-5.0) g/dL Procalcitonin (0.02-0.09) ng/mL Crossmatch Microbiology - Last 24 Hours (Table) 08/02/20 19:25 Blood Culture - Preliminary Blood No Growth after 24 hours 08/03/20 12:20 Catheter Tip Culture - Preliminary Catheter Tip Assessment and Plan Assessment: -patient with elevated white count which is likely multifactorial in this patient has been in the hospital for almost 18 days now electively admitted for bypass surgery with a clinical course complicated by small bowel ischemia status post initial resection followed by repeat laparotomy resection of the anastomosis and ileostomy and washout of the abdominal hematoma source is likely abdominal with concern for possible related to hematoma versus secondary peritonitis plus minus related to the central line (1) Leukocytosis Current Visit: Yes Status: Acute Code(s): D72.829 - ELEVATED WHITE BLOOD CELL COUNT, UNSPECIFIED SNOMED Code(s): 356108765 Plan: 1-central line should be discontinued and tip sent for the culture 2-we will continue patient on Zosyn however add Eraxis, if no improvement in his white count or if the patient develops any fever we will add daptomycin for gram-negative positive coverage We will follow on clinical condition and cultures to further adjust medication if needed Thank you for this consultation we will follow the patient along with you Time with Patient: Greater than 30
[2020-08-04 01:01] LABS: Glucose,Whole Blood 154 mg/dL (75-99)
[2020-08-04 01:57] LABS: Glucose,Whole Blood 154 mg/dL (75-99)
[2020-08-04 02:57] LABS: Glucose,Whole Blood 167 mg/dL (75-99)
[2020-08-04 03:58] LABS: Glucose,Whole Blood 148 mg/dL (75-99)
[2020-08-04 04:06] LABS: Anisocytosis Slight; HCT 25.1 % (39.0-53.0); HGB 8.4 gm/dL (13.0-17.5); Hypochromasia Slight; MCH 31.5 pg (25.0-35.0); MCHC 33.3 g/dL (31.0-37.0); MCV 94.5 fL (80.0-100.0); Macrocytosis Slight; Mean Platelet Volume 8.8; Platelet Count 113 k/uL (150-450); Poikilocytosis Moderate; RBC 2.66 m/uL (4.30-5.90); WBC 30.8 k/uL (3.8-10.6)
[2020-08-04 04:28] LABS: Calcium 7.8 mg/dL (8.4-10.2); Magnesium 2.2 mg/dL (1.6-2.3); Phosphorus 3.7 mg/dL (2.5-4.5); Potassium 3.4 mmol/L (3.5-5.1); Total Bilirubin 1.1 mg/dL (0.2-1.3); Total Protein 4.2 g/dL (6.3-8.2)
[2020-08-04 05:05] LABS: Glucose,Whole Blood 135 mg/dL (75-99)
[2020-08-04 05:31] LABS: ABG Base Excess -5.4 mmol/L; ABG HCO3 21 mmol/L (21-25); ABG PCO2 40 mmHg (35-45); ABG PH 7.32 (7.35-7.45); ABG PO2 106 mmHg (83-108); ABG TCO2 22 mmol/L (19-24); Allen Test Performed? Yes
[2020-08-04] MEDS: 1: MVI, ADULT NO.4 WITH VIT K 10 ML, TRACE (CONC-1ML/DOSE) 1 ML, PARENTERAL ELECTROLYTES IV SCH ×6 (06:39)
[2020-08-04] MEDS: NOREPINEPHRINE 8 MG in SODIUM CHLORIDE 0.9% 250 ML IV SCH (06:39)
[2020-08-04] MEDS: POTASSIUM CHLORIDE 10 MEQ in WATER FOR INJECTION 1 100ML.BAG IVPB SCH ×4 (06:43→10:10)
[2020-08-04 06:55] LABS: Glucose,Whole Blood 115 mg/dL (75-99)
[2020-08-04 08:06] LABS: Glucose,Whole Blood 135 mg/dL (75-99)
[2020-08-04] MEDS: BUDESONIDE 1 MG/2 ML NEBU INHALATION SCH ×2 (08:14→19:27)
[2020-08-04] MEDS: FORMOTEROL FUMARATE 20 MCG/2 ML NEBU INHALATION SCH ×2 (08:14→19:27)
[2020-08-04] MEDS: IPRATROPIUM-ALBUTEROL 3 ML NEB INHALATION SCH ×4 (08:14→19:27)
[2020-08-04] MEDS: AMIODARONE 300 MG in DEXTROSE 5% IN WATER 250 ML IV SCH ×4 (08:24→17:22)
--- NOTE | 2020-08-04 08:26 | XR ---
EXAMINATION TYPE: XR chest 1V portable DATE OF EXAM: 08/04/2020 COMPARISON: 08/03/2020 INDICATION: Tube placement TECHNIQUE: Single frontal view of the chest is obtained. FINDINGS: The heart size is normal. The pulmonary vasculature is normal. Mild bibasilar infiltrates are present. There is silhouetting left diaphragm. Small left pleural effu james is present. Endotracheal tube tip is above the mickey. Nasogastric tube transverses the thorax. Right PICC line t ip is in the superior vena cava region. IMPRESSION: 1. Bibasilar infiltrates with a small left pleural effusion. 2. Lines and catheters discussed above
[2020-08-04] MEDS: PIPERACILLIN-TAZOBACTAM 3.375 GM in SODIUM CHLORIDE 0.9% 100 ML IVPB SCH ×2 (08:35→15:47)
[2020-08-04] MEDS: HEPARIN SODIUM,PORCINE 5,000 UNIT/ML 1 ML VIAL SQ SCH ×2 (08:35→15:47)
[2020-08-04] MEDS: LEVOTHYROXINE IVP 100 MCG/5 ML VIAL IV SCH (08:35)
[2020-08-04] MEDS: PANTOPRAZOLE 40 MG/10 ML VIAL IVP SCH ×2 (08:35→20:33)
[2020-08-04] MEDS: ASPIRIN 81 MG PO SCH (08:35)
[2020-08-04] MEDS: ANIDULAFUNGIN 100 MG in SODIUM CHLORIDE 0.9% 100 ML IVPB SCH (08:35)
[2020-08-04] MEDS: CHLORHEXIDINE GLUCONATE 15 ML CUP MUCOUS MEM SCH ×2 (08:35→20:33)
--- NOTE | 2020-08-04 09:02 | P.PN ---
Subjective Progress Note Date: 08/04/20 Principal diagnosis: Symptomatic triple-vessel coronary artery disease, mild left ventricular dysfunction. Previuos medical history of stenting to his right coronary artery in 2002, hypertension, hyperlipidemia, hypothyroid status post partial thyroidectomy, previous tobacco dependence quit smoking 20 years ago, moderate chronic obstructive pulmonary disease with preoperative FEV1 of 56% of predicted value, bullous emphysema, remote history of pneumonia, type 2 diabetes mellitus with a preoperative hemoglobin A1c of 5.2%, chronic kidney disease stage III with a baseline creatinine of 1.4-1.5, family history of premature coronary artery disease with brother having had CABG at less than 50 years old. POD #17 double coronary artery bypass grafting using the left internal mammary artery to left anterior descending coronary artery, reverse greater saphenous vein graft from the aorta to the posterior descending coronary artery. Exclusion of the left atrial appendage using a 35 mm Atriclip, endoscopic harvesting of the right greater saphenous vein from the groin to above the ankle level, graft flow measurement using the PATHEOS system, intraoperative transesophageal echocardiogram and epi-aortic scanning. Postoperative acute blood loss anemia, expected outcome from hemodilution and cardiopulmonary bypass. Postoperative paroxysmal atrial fibrillation, unexpected but common outcome after open heart surgery. Pneumoperitoneum, unexpected Acute on chronic kidney disease secondary to ATN Pneumatosis of the small bowel POD #11 small bowel resection Prolonged mechanical ventilation, unexpected Acute abdomen, intraperitoneal hemorrhage POD #2 Exploratory laparotomy, washout of peritoneal cavity, ileostomy with small bowel resection Patient's currently laying in the intensive care unit mechanically ventilated. Currently in controlled atrial fibrillation, remains on IV levo for hypotension, continues on IV amiodarone. NG tube in place to low intermittent suction with 500 mL green fluid last 24 hours, no bowel sounds. Abdomen is soft, remains on TPN. Remains on IV Zosyn, Day 11, Eraxis added yesterday per infectious disease. Preliminary sputum Gram stain demonstrating no growth, preliminary blood culture negative. Patient remains afebrile, however white blood cell count 30.8, was 29 yesterday, CRP 197, was 120 yesterday, pro-calcitonin yesterday 2.26, was 1.41 on July 29. Right internal jugular triple-lumen central line was discontinued yesterday after placement of PICC to the right brachial vein, right femoral arterial line discontinued after placement of left radial arterial line. Minimal serous drainage in ileostomy. Objective - Vital Signs Vital signs: Vital Signs Temp 98.0 F 08/04/20 04:00 Pulse 62 08/04/20 08:25 Resp 28 H 08/04/20 07:15 BP 101/47 08/04/20 07:00 Pulse Ox 99 08/04/20 07:15 Intake & Output 08/03/20 08/04/20 08/04/20 18:59 06:59 18:59 Intake Total 2443.967 3806.069 373 Output Total 1515 2125 150 Balance 088.597 3228.069 223 Weight 107.4 kg Intake: IV 1494 1929 123 Amiodarone 300 mg In 250 25 Dextrose 5% in Water 250 ml @ 0.5 MG/MIN 25 mls/hr IV .Q10H [facility] Rx#: [id number] Anidulafungin 200 mg In 200 Sodium Chloride 0.9% 200 ml @ 84 mls/hr IVPB ONCE ONE Rx#:[id number] Magnesium Sulfate-D5w Pmx 200 1 gm In Dextrose/Water 1 100ml.bag @ 100 mls/hr IVPB Q1H [facility] Rx#: [id number] Piperacillin-Tazobactam 3 100 .375 gm In Sodium Chloride 0.9% 100 ml @ 25 mls/hr IVPB Q8HR [facility] Rx# :[id number] Potassium Chloride 10 meq 300 In Water For Injection 1 100ml.bag @ 100 mls/hr IVPB Q1H [facility] Rx#: [id number] Sodium Chloride 0.9% 1, 240 240 20 000 ml @ 20 mls/hr IV . Q24H [facility] Rx#:[id number] TPN 900 900 75 pressure bag 54 39 3 Intake, IV Titration 958.974 6481.069 250 Amount Amiodarone 300 mg In 250 237.917 250 Dextrose 5% in Water 250 ml @ 0.5 MG/MIN 25 mls/hr IV .Q10H [facility] Rx#: [id number] Insulin Regular 100 unit 48.041 82.451 0 In Sodium Chloride 0.9% 100 ml @ Per Protocol IV .Q0M [facility] Rx#:[id number] Norepinephrine 8 mg In 379.437 292.689 Sodium Chloride 0.9% 250 ml @ 0.05 MCG/KG/MIN 10. 846 mls/hr IV .[id number] [facility] Rx#:[id number] Sodium Chloride 2.5MEQ/ml 983.75 Vial 10 meq In Amino Acid 5%-D15w 1,000 ml @ 75 mls/hr IV .BY DURATION [facility] Rx#:[id number] propofoL 1,000 mg In 272.489 280.262 Empty Bag 1 bag @ Titrate IV .Q0M [facility] Rx#: [id number] Output: Gastric Drainage 150 Urine 1365 1725 150 Emesis 0 Oral Regurgitation 400 Other: Voiding Method Indwelling Catheter Indwelling Catheter ABP, PAP, CO, CI - Last Documented Arterial Blood Pressure 114/50 Pulmonary Artery Pressure 33/14 Cardiac Output 6.7 Cardiac Index 3.1 - Constitutional General appearance: Present: no acute distress, obese - Respiratory Details: Lungs sounds diminished bilaterally with coarse breath sounds in the bases. Respirations even, non-labored on mechanical ventilation. Current settings AC mode, FiO2 40%, TV 500, RR 24, PEEP 5. ABGs this morning 7.32/40/106/21/99%/- 5.4 on those settings. 8.0 ETT present, 25 @ lip - Cardiovascular Details: S1, S2 present. Irregular rate and rhythm, controlled atrial fibrillation on telemetry with rate in the 70-80s. Sternum stable. Palpable peripheral pulses bilaterally. Generalized upper extremity edema present. Heart hugger, antiembolism stockings, SCDs present. Right brachial PICC line, left radial arterial line present. - Gastrointestinal Gastrointestinal Comment(s): Abdomen soft, nontender, slightly distended. No bowel sounds. NG tube present to low intermittent suction with 500 mL green drainage in 24 hours. Ileostomy present to RLQ, stoma pink and moist, minimal serous output - Genitourinary Genitourinary Comment(s): Villafana catheter present draining clear, yellow urine. Output 100-175 mL/h overnight, 3090 mL in the last 24 hours - Integumentary Integumentary Comment(s): Skin is warm and dry, fingernails have blue tint. Anterior chest incision well approximated and covered with dry intact dressing. Right lower extremity EVH site well approximated. Mid abdominal incision open, packed, dressing in place. The patient has shear injury approximately 5 x 7 cm beneath his right shoulder, Silvadene cream applied, dry dressing in place - Neurologic Neurologic Comment(s): sedated on mechanical ventilation - Psychiatric Psychiatric Comment(s): sedated on mechanical ventilation - Allied health notes Allied health notes reviewed: nursing - Labs CBC & Chem 7: 08/04/20 04:00 08/04/20 04:00 Labs: Abnormal Lab Results - Last 24 Hours (Table) 08/03/20 08/03/20 08/03/20 Range/Units 04:14 04:14 09:44 WBC (3.8-10.6) k/uL RBC (4.30-5.90) m/uL Hgb (13.0-17.5) gm/dL Hct (39.0-53.0) % RDW (11.5-15.5) % Plt Count (150-450) k/uL ABG pH (7.35-7.45) ABG O2 Saturation (94-97) % Sodium (137-145) mmol/L Potassium (3.5-5.1) mmol/L Carbon Dioxide (22-30) mmol/L BUN (9-20) mg/dL Creatinine (0.66-1.25) mg/dL Glucose (74-99) mg/dL POC Glucose (mg/dL) 132 H (75-99) mg/dL Calcium (8.4-10.2) mg/dL AST (17-59) U/L ALT (4-49) U/L C-Reactive Protein 120.4 H (<10.0) mg/L Total Protein (6.3-8.2) g/dL Albumin (3.5-5.0) g/dL Procalcitonin 2.26 H (0.02-0.09) ng/mL 08/03/20 08/03/20 08/03/20 Range/Units 11:21 13:13 15:06 WBC (3.8-10.6) k/uL RBC (4.30-5.90) m/uL Hgb (13.0-17.5) gm/dL Hct (39.0-53.0) % RDW (11.5-15.5) % Plt Count (150-450) k/uL ABG pH (7.35-7.45) ABG O2 Saturation (94-97) % Sodium (137-145) mmol/L Potassium (3.5-5.1) mmol/L Carbon Dioxide (22-30) mmol/L BUN (9-20) mg/dL Creatinine (0.66-1.25) mg/dL Glucose (74-99) mg/dL POC Glucose (mg/dL) 130 H 132 H 143 H (75-99) mg/dL Calcium (8.4-10.2) mg/dL AST (17-59) U/L ALT (4-49) U/L C-Reactive Protein (<10.0) mg/L Total Protein (6.3-8.2) g/dL Albumin (3.5-5.0) g/dL Procalcitonin (0.02-0.09) ng/mL 08/03/20 08/03/20 08/03/20 Range/Units 16:17 17:28 18:27 WBC (3.8-10.6) k/uL RBC (4.30-5.90) m/uL Hgb (13.0-17.5) gm/dL Hct (39.0-53.0) % RDW (11.5-15.5) % Plt Count (150-450) k/uL ABG pH (7.35-7.45) ABG O2 Saturation (94-97) % Sodium (137-145) mmol/L Potassium (3.5-5.1) mmol/L Carbon Dioxide (22-30) mmol/L BUN (9-20) mg/dL Creatinine (0.66-1.25) mg/dL Glucose (74-99) mg/dL POC Glucose (mg/dL) 141 H 112 H 130 H (75-99) mg/dL Calcium (8.4-10.2) mg/dL AST (17-59) U/L ALT (4-49) U/L C-Reactive Protein (<10.0) mg/L Total Protein (6.3-8.2) g/dL Albumin (3.5-5.0) g/dL Procalcitonin (0.02-0.09) ng/mL 08/03/20 08/03/20 08/03/20 Range/Units 19:05 19:58 22:01 WBC (3.8-10.6) k/uL RBC (4.30-5.90) m/uL Hgb (13.0-17.5) gm/dL Hct (39.0-53.0) % RDW (11.5-15.5) % Plt Count (150-450) k/uL ABG pH (7.35-7.45) ABG O2 Saturation (94-97) % Sodium (137-145) mmol/L Potassium (3.5-5.1) mmol/L Carbon Dioxide (22-30) mmol/L BUN (9-20) mg/dL Creatinine (0.66-1.25) mg/dL Glucose (74-99) mg/dL POC Glucose (mg/dL) 134 H 163 H 148 H (75-99) mg/dL Calcium (8.4-10.2) mg/dL AST (17-59) U/L ALT (4-49) U/L C-Reactive Protein (<10.0) mg/L Total Protein (6.3-8.2) g/dL Albumin (3.5-5.0) g/dL Procalcitonin (0.02-0.09) ng/mL 08/03/20 08/04/20 08/04/20 Range/Units 23:46 01:00 01:55 WBC (3.8-10.6) k/uL RBC (4.30-5.90) m/uL Hgb (13.0-17.5) gm/dL Hct (39.0-53.0) % RDW (11.5-15.5) % Plt Count (150-450) k/uL ABG pH (7.35-7.45) ABG O2 Saturation (94-97) % Sodium (137-145) mmol/L Potassium (3.5-5.1) mmol/L Carbon Dioxide (22-30) mmol/L BUN (9-20) mg/dL Creatinine (0.66-1.25) mg/dL Glucose (74-99) mg/dL POC Glucose (mg/dL) 162 H 154 H 154 H (75-99) mg/dL Calcium (8.4-10.2) mg/dL AST (17-59) U/L ALT (4-49) U/L C-Reactive Protein (<10.0) mg/L Total Protein (6.3-8.2) g/dL Albumin (3.5-5.0) g/dL Procalcitonin (0.02-0.09) ng/mL 08/04/20 08/04/20 08/04/20 Range/Units 02:56 03:56 04:00 WBC (3.8-10.6) k/uL RBC (4.30-5.90) m/uL Hgb (13.0-17.5) gm/dL Hct (39.0-53.0) % RDW (11.5-15.5) % Plt Count (150-450) k/uL ABG pH (7.35-7.45) ABG O2 Saturation (94-97) % Sodium 133 L (137-145) mmol/L Potassium 3.4 L (3.5-5.1) mmol/L Carbon Dioxide 21 L (22-30) mmol/L BUN 97 H (9-20) mg/dL Creatinine 2.61 H (0.66-1.25) mg/dL Glucose 137 H (74-99) mg/dL POC Glucose (mg/dL) 167 H 148 H (75-99) mg/dL Calcium 7.8 L (8.4-10.2) mg/dL AST 110 H (17-59) U/L ALT 253 H (4-49) U/L C-Reactive Protein 197.0 H (<10.0) mg/L Total Protein 4.2 L (6.3-8.2) g/dL Albumin 2.0 L (3.5-5.0) g/dL Procalcitonin (0.02-0.09) ng/mL 08/04/20 08/04/20 08/04/20 Range/Units 04:00 05:03 05:20 WBC 30.8 H (3.8-10.6) k/uL RBC 2.66 L (4.30-5.90) m/uL Hgb 8.4 L (13.0-17.5) gm/dL Hct 25.1 L (39.0-53.0) % RDW 18.0 H (11.5-15.5) % Plt Count 113 L (150-450) k/uL ABG pH 7.32 L (7.35-7.45) ABG O2 Saturation 99.0 H (94-97) % Sodium (137-145) mmol/L Potassium (3.5-5.1) mmol/L Carbon Dioxide (22-30) mmol/L BUN (9-20) mg/dL Creatinine (0.66-1.25) mg/dL Glucose (74-99) mg/dL POC Glucose (mg/dL) 135 H (75-99) mg/dL Calcium (8.4-10.2) mg/dL AST (17-59) U/L ALT (4-49) U/L C-Reactive Protein (<10.0) mg/L Total Protein (6.3-8.2) g/dL Albumin (3.5-5.0) g/dL Procalcitonin (0.02-0.09) ng/mL 08/04/20 08/04/20 Range/Units 06:54 08:04 WBC (3.8-10.6) k/uL RBC (4.30-5.90) m/uL Hgb (13.0-17.5) gm/dL Hct (39.0-53.0) % RDW (11.5-15.5) % Plt Count (150-450) k/uL ABG pH (7.35-7.45) ABG O2 Saturation (94-97) % Sodium (137-145) mmol/L Potassium (3.5-5.1) mmol/L Carbon Dioxide (22-30) mmol/L BUN (9-20) mg/dL Creatinine (0.66-1.25) mg/dL Glucose (74-99) mg/dL POC Glucose (mg/dL) 115 H 135 H (75-99) mg/dL Calcium (8.4-10.2) mg/dL AST (17-59) U/L ALT (4-49) U/L C-Reactive Protein (<10.0) mg/L Total Protein (6.3-8.2) g/dL Albumin (3.5-5.0) g/dL Procalcitonin (0.02-0.09) ng/mL Microbiology - Last 24 Hours (Table) 08/03/20 16:20 Gram Stain - Preliminary Sputum Sputum Culture - Preliminary 12/16/20 21:48 Blood Culture - Preliminary Blood No Growth after 24 hours 08/02/20 19:25 Blood Culture - Preliminary Blood No Growth after 24 hours 08/03/20 12:20 Catheter Tip Culture - Preliminary Catheter Tip - Imaging and Cardiology Chest x-ray: report reviewed, image reviewed Assessment and Plan Assessment: 1. Symptomatic triple-vessel coronary artery disease, status post 2 vessel CABG 2. Mild left ventricular dysfunction 3. Previuos history of stenting to his right coronary artery in 2002 4. Hypertension 5. Hyperlipidemia 6. Hypothyroid status post partial thyroidectomy 7. Previous tobacco dependence with bullous emphysema 8. Moderate chronic obstructive pulmonary disease with preoperative FEV1 of 56% of predicted value 9. Remote history of pneumonia 10. Type 2 diabetes mellitus with a preoperative hemoglobin A1c of 5.2% 11. Chronic kidney disease stage III with a baseline creatinine of 1.4-1.5 12. Family history of premature coronary artery disease with brother having had CABG at less than 50 years old 13. Postoperative acute blood loss anemia, expected outcome 14. Postoperative paroxysmal atrial fibrillation, unexpected, status post exclusion of the left atrial appendage 15. Pneumoperitoneum, unexpected 16. Acute on chronic kidney disease with hyponatremia, hyperkalemia 17. Pneumatosis of the small bowel, status post small bowel resection 18. Sputum culture positive for pseudomonas fluorescens 19. Prolonged mechanical ventilation 20. Acute abdomen, intraperitoneal hemorrhage, S/P exploratory laparotomy, washout of peritoneal cavity, ileostomy with small bowel resection Plan: 1. Continue low dose aspirin. Wean levo as tolerated 2. Continue IV amiodarone for afib. 3. Mechanical ventilation per pulmonology. Bronchodilators, inhaled steroids per pulmonology management. 4. Will monitor daily labs and chest x-rays. 5. GI/DVT prophylaxis. 6. Pain control with current medication regimen. 7. Insulin management per Dr. Polk 8. Continue TPN per RD. No tube feedings per Dr. Dempsey 9. Nephrology following. Avoid nephrotoxic agents. Continue IV Lasix per their recommendations 10. Strict accurate intake and output, daily weight 11. Continue IV Zosyn, day 11,Eraxis initiated per infectious disease. New cultures sent. Appreciate ID continued recommendations 12. More recommendations to follow based on patient's clinical course. Time with Patient: Greater than 30
[2020-08-04 09:30] LABS: Glucose,Whole Blood 138 mg/dL (75-99)
[2020-08-04 10:10] LABS: Glucose,Whole Blood 160 mg/dL (75-99)
--- NOTE | 2020-08-04 10:13 | P.PN ---
Subjective Patient is seen in follow-up for acute kidney injury on chronic kidney disease. Renal function fairly stable. Remains on Levophed. He is also on amiodarone drip for A. fib with RVR. Currently on 40% FiO2. Intubated. Receiving TPN. Received 1 dose of IV Lasix yesterday. Urine output 100-200 mL an hour overnight. Vital signs are stable. On vasopressor support. HEENT: Intubated. LUNGS: Breath sounds decreased. HEART: Regular rate and rhythm. ABDOMEN: No gross distention noted. EXTREMITITES: 1+ edema. Objective - Vital Signs Vital signs: Vital Signs Temp 98.0 F 08/04/20 04:00 Pulse 63 08/04/20 08:55 Resp 28 H 08/04/20 07:15 BP 101/47 08/04/20 07:00 Pulse Ox 99 08/04/20 07:15 Intake & Output 08/03/20 08/04/20 08/04/20 18:59 06:59 18:59 Intake Total 2443.967 3806.069 438.52 Output Total 1515 2125 150 Balance 201.334 7305.069 288.52 Weight 107.4 kg Intake: IV 1494 1929 123 Amiodarone 300 mg In 250 25 Dextrose 5% in Water 250 ml @ 0.5 MG/MIN 25 mls/hr IV .Q10H [facility] Rx#: [id number] Anidulafungin 200 mg In 200 Sodium Chloride 0.9% 200 ml @ 84 mls/hr IVPB ONCE ONE Rx#:[id number] Magnesium Sulfate-D5w Pmx 200 1 gm In Dextrose/Water 1 100ml.bag @ 100 mls/hr IVPB Q1H [facility] Rx#: [id number] Piperacillin-Tazobactam 3 100 .375 gm In Sodium Chloride 0.9% 100 ml @ 25 mls/hr IVPB Q8HR [facility] Rx# :[id number] Potassium Chloride 10 meq 300 In Water For Injection 1 100ml.bag @ 100 mls/hr IVPB Q1H [facility] Rx#: [id number] Sodium Chloride 0.9% 1, 240 240 20 000 ml @ 20 mls/hr IV . Q24H [facility] Rx#:[id number] TPN 900 900 75 pressure bag 54 39 3 Intake, IV Titration 033.736 6769.069 315.52 Amount Amiodarone 300 mg In 250 237.917 250 Dextrose 5% in Water 250 ml @ 0.5 MG/MIN 25 mls/hr IV .Q10H [facility] Rx#: [id number] Insulin Regular 100 unit 48.041 82.451 0 In Sodium Chloride 0.9% 100 ml @ Per Protocol IV .Q0M [facility] Rx#:[id number] Norepinephrine 8 mg In 379.437 292.689 Sodium Chloride 0.9% 250 ml @ 0.05 MCG/KG/MIN 10. 846 mls/hr IV .[id number] [facility] Rx#:[id number] Sodium Chloride 2.5MEQ/ml 983.75 Vial 10 meq In Amino Acid 5%-D15w 1,000 ml @ 75 mls/hr IV .BY DURATION [facility] Rx#:[id number] propofoL 1,000 mg In 272.489 280.262 65.52 Empty Bag 1 bag @ Titrate IV .Q0M [facility] Rx#: [id number] Output: Gastric Drainage 150 Urine 1365 1725 150 Emesis 0 Oral Regurgitation 400 Other: Voiding Method Indwelling Catheter Indwelling Catheter ABP, PAP, CO, CI - Last Documented Arterial Blood Pressure 114/50 Pulmonary Artery Pressure 33/14 Cardiac Output 6.7 Cardiac Index 3.1 - Labs CBC & Chem 7: 08/04/20 04:00 08/04/20 04:00 Labs: Abnormal Lab Results - Last 24 Hours (Table) 08/03/20 08/03/20 08/03/20 Range/Units 04:14 04:14 11:21 WBC (3.8-10.6) k/uL RBC (4.30-5.90) m/uL Hgb (13.0-17.5) gm/dL Hct (39.0-53.0) % RDW (11.5-15.5) % Plt Count (150-450) k/uL ABG pH (7.35-7.45) ABG O2 Saturation (94-97) % Sodium (137-145) mmol/L Potassium (3.5-5.1) mmol/L Carbon Dioxide (22-30) mmol/L BUN (9-20) mg/dL Creatinine (0.66-1.25) mg/dL Glucose (74-99) mg/dL POC Glucose (mg/dL) 130 H (75-99) mg/dL Calcium (8.4-10.2) mg/dL AST (17-59) U/L ALT (4-49) U/L C-Reactive Protein 120.4 H (<10.0) mg/L Total Protein (6.3-8.2) g/dL Albumin (3.5-5.0) g/dL Procalcitonin 2.26 H (0.02-0.09) ng/mL 08/03/20 08/03/20 08/03/20 Range/Units 13:13 15:06 16:17 WBC (3.8-10.6) k/uL RBC (4.30-5.90) m/uL Hgb (13.0-17.5) gm/dL Hct (39.0-53.0) % RDW (11.5-15.5) % Plt Count (150-450) k/uL ABG pH (7.35-7.45) ABG O2 Saturation (94-97) % Sodium (137-145) mmol/L Potassium (3.5-5.1) mmol/L Carbon Dioxide (22-30) mmol/L BUN (9-20) mg/dL Creatinine (0.66-1.25) mg/dL Glucose (74-99) mg/dL POC Glucose (mg/dL) 132 H 143 H 141 H (75-99) mg/dL Calcium (8.4-10.2) mg/dL AST (17-59) U/L ALT (4-49) U/L C-Reactive Protein (<10.0) mg/L Total Protein (6.3-8.2) g/dL Albumin (3.5-5.0) g/dL Procalcitonin (0.02-0.09) ng/mL 08/03/20 08/03/20 08/03/20 Range/Units 17:28 18:27 19:05 WBC (3.8-10.6) k/uL RBC (4.30-5.90) m/uL Hgb (13.0-17.5) gm/dL Hct (39.0-53.0) % RDW (11.5-15.5) % Plt Count (150-450) k/uL ABG pH (7.35-7.45) ABG O2 Saturation (94-97) % Sodium (137-145) mmol/L Potassium (3.5-5.1) mmol/L Carbon Dioxide (22-30) mmol/L BUN (9-20) mg/dL Creatinine (0.66-1.25) mg/dL Glucose (74-99) mg/dL POC Glucose (mg/dL) 112 H 130 H 134 H (75-99) mg/dL Calcium (8.4-10.2) mg/dL AST (17-59) U/L ALT (4-49) U/L C-Reactive Protein (<10.0) mg/L Total Protein (6.3-8.2) g/dL Albumin (3.5-5.0) g/dL Procalcitonin (0.02-0.09) ng/mL 08/03/20 08/03/20 08/03/20 Range/Units 19:58 22:01 23:46 WBC (3.8-10.6) k/uL RBC (4.30-5.90) m/uL Hgb (13.0-17.5) gm/dL Hct (39.0-53.0) % RDW (11.5-15.5) % Plt Count (150-450) k/uL ABG pH (7.35-7.45) ABG O2 Saturation (94-97) % Sodium (137-145) mmol/L Potassium (3.5-5.1) mmol/L Carbon Dioxide (22-30) mmol/L BUN (9-20) mg/dL Creatinine (0.66-1.25) mg/dL Glucose (74-99) mg/dL POC Glucose (mg/dL) 163 H 148 H 162 H (75-99) mg/dL Calcium (8.4-10.2) mg/dL AST (17-59) U/L ALT (4-49) U/L C-Reactive Protein (<10.0) mg/L Total Protein (6.3-8.2) g/dL Albumin (3.5-5.0) g/dL Procalcitonin (0.02-0.09) ng/mL 08/04/20 08/04/20 08/04/20 Range/Units 01:00 01:55 02:56 WBC (3.8-10.6) k/uL RBC (4.30-5.90) m/uL Hgb (13.0-17.5) gm/dL Hct (39.0-53.0) % RDW (11.5-15.5) % Plt Count (150-450) k/uL ABG pH (7.35-7.45) ABG O2 Saturation (94-97) % Sodium (137-145) mmol/L Potassium (3.5-5.1) mmol/L Carbon Dioxide (22-30) mmol/L BUN (9-20) mg/dL Creatinine (0.66-1.25) mg/dL Glucose (74-99) mg/dL POC Glucose (mg/dL) 154 H 154 H 167 H (75-99) mg/dL Calcium (8.4-10.2) mg/dL AST (17-59) U/L ALT (4-49) U/L C-Reactive Protein (<10.0) mg/L Total Protein (6.3-8.2) g/dL Albumin (3.5-5.0) g/dL Procalcitonin (0.02-0.09) ng/mL 08/04/20 08/04/20 08/04/20 Range/Units 03:56 04:00 04:00 WBC 30.8 H (3.8-10.6) k/uL RBC 2.66 L (4.30-5.90) m/uL Hgb 8.4 L (13.0-17.5) gm/dL Hct 25.1 L (39.0-53.0) % RDW 18.0 H (11.5-15.5) % Plt Count 113 L (150-450) k/uL ABG pH (7.35-7.45) ABG O2 Saturation (94-97) % Sodium 133 L (137-145) mmol/L Potassium 3.4 L (3.5-5.1) mmol/L Carbon Dioxide 21 L (22-30) mmol/L BUN 97 H (9-20) mg/dL Creatinine 2.61 H (0.66-1.25) mg/dL Glucose 137 H (74-99) mg/dL POC Glucose (mg/dL) 148 H (75-99) mg/dL Calcium 7.8 L (8.4-10.2) mg/dL AST 110 H (17-59) U/L ALT 253 H (4-49) U/L C-Reactive Protein 197.0 H (<10.0) mg/L Total Protein 4.2 L (6.3-8.2) g/dL Albumin 2.0 L (3.5-5.0) g/dL Procalcitonin (0.02-0.09) ng/mL 08/04/20 08/04/20 08/04/20 Range/Units 05:03 05:20 06:54 WBC (3.8-10.6) k/uL RBC (4.30-5.90) m/uL Hgb (13.0-17.5) gm/dL Hct (39.0-53.0) % RDW (11.5-15.5) % Plt Count (150-450) k/uL ABG pH 7.32 L (7.35-7.45) ABG O2 Saturation 99.0 H (94-97) % Sodium (137-145) mmol/L Potassium (3.5-5.1) mmol/L Carbon Dioxide (22-30) mmol/L BUN (9-20) mg/dL Creatinine (0.66-1.25) mg/dL Glucose (74-99) mg/dL POC Glucose (mg/dL) 135 H 115 H (75-99) mg/dL Calcium (8.4-10.2) mg/dL AST (17-59) U/L ALT (4-49) U/L C-Reactive Protein (<10.0) mg/L Total Protein (6.3-8.2) g/dL Albumin (3.5-5.0) g/dL Procalcitonin (0.02-0.09) ng/mL 08/04/20 08/04/20 08/04/20 Range/Units 08:04 09:28 10:08 WBC (3.8-10.6) k/uL RBC (4.30-5.90) m/uL Hgb (13.0-17.5) gm/dL Hct (39.0-53.0) % RDW (11.5-15.5) % Plt Count (150-450) k/uL ABG pH (7.35-7.45) ABG O2 Saturation (94-97) % Sodium (137-145) mmol/L Potassium (3.5-5.1) mmol/L Carbon Dioxide (22-30) mmol/L BUN (9-20) mg/dL Creatinine (0.66-1.25) mg/dL Glucose (74-99) mg/dL POC Glucose (mg/dL) 135 H 138 H 160 H (75-99) mg/dL Calcium (8.4-10.2) mg/dL AST (17-59) U/L ALT (4-49) U/L C-Reactive Protein (<10.0) mg/L Total Protein (6.3-8.2) g/dL Albumin (3.5-5.0) g/dL Procalcitonin (0.02-0.09) ng/mL Microbiology - Last 24 Hours (Table) 08/03/20 12:20 Catheter Tip Culture - Preliminary Catheter Tip 08/03/20 16:20 Gram Stain - Preliminary Sputum Sputum Culture - Preliminary 08/02/20 21:48 Blood Culture - Preliminary Blood No Growth after 24 hours 08/02/20 19:25 Blood Culture - Preliminary Blood No Growth after 24 hours Assessment and Plan Plan: Assessment: 1. Acute kidney injury secondary to hemodynamic ATN. No hydronephrosis noted on computed tomography scan. No proteinuria on UA. Renal function stable. Urine output 100-200 cc/hr overnight. 2. Chronic kidney disease stage III with baseline creatinine in the range of 1.2-1.5 secondary to nephrosclerosis. UA from June 2020 was benign. 3. Coronary artery disease status post 2 vessel CABG on July 18. 4. Hypervolemic hyponatremia. 5. Bowel ischemia status post exploratory laparotomy and resection. Underwent another exploratory laparotomy on August 02 with ileostomy. 6. Diabetes mellitus. 7. Volume overload. Improving with diuresis. 8. Hypokalemia secondary to diuresis. Being replaced. 9. A. fib maintained on amiodarone drip. 10. Anemia of chronic kidney disease and post-cabg. Status post blood transfusi on this admission. Plan: Status post IV Lasix yesterday. Status post IV albumin August 02. Maintain TPN per surgical recommendations. Avoid nephrotoxins. Continue to monitor renal function and urine output. Wean FiO2 and vasopressors. Hold off on diuretics today. Potassium being replaced.
--- NOTE | 2020-08-04 10:19 | P.PN ---
Subjective Progress Note Date: 08/04/20 Principal diagnosis: CABG He is still on mechanical ventilation. Remains on levo for hypotension, IV amiodarone for a-fib control, TPN, NG tube in place to low intermittent suction with 500 mL green fluid last 24 hours, no bowel sounds. Right internal jugular triple-lumen central line was discontinued yesterday after placement of PICC to the right brachial vein, right femoral arterial line discontinued after placement of left radial arterial line. Minimal serous drainage in ileostomy. Objective - Vital Signs Vital signs: Vital Signs Temp 98.0 F 08/04/20 04:00 Pulse 63 08/04/20 08:55 Resp 28 H 08/04/20 07:15 BP 101/47 08/04/20 07:00 Pulse Ox 99 08/04/20 07:15 Intake & Output 08/03/20 08/04/20 08/04/20 18:59 06:59 18:59 Intake Total 2443.967 3806.069 438.52 Output Total 1515 2125 150 Balance 998.490 6140.069 288.52 Weight 107.4 kg Intake: IV 1494 1929 123 Amiodarone 300 mg In 250 25 Dextrose 5% in Water 250 ml @ 0.5 MG/MIN 25 mls/hr IV .Q10H [facility] Rx#: [id number] Anidulafungin 200 mg In 200 Sodium Chloride 0.9% 200 ml @ 84 mls/hr IVPB ONCE ONE Rx#:[id number] Magnesium Sulfate-D5w Pmx 200 1 gm In Dextrose/Water 1 100ml.bag @ 100 mls/hr IVPB Q1H [facility] Rx#: [id number] Piperacillin-Tazobactam 3 100 .375 gm In Sodium Chloride 0.9% 100 ml @ 25 mls/hr IVPB Q8HR [facility] Rx# :[id number] Potassium Chloride 10 meq 300 In Water For Injection 1 100ml.bag @ 100 mls/hr IVPB Q1H [facility] Rx#: [id number] Sodium Chloride 0.9% 1, 240 240 20 000 ml @ 20 mls/hr IV . Q24H [facility] Rx#:[id number] TPN 900 900 75 pressure bag 54 39 3 Intake, IV Titration 447.880 3819.069 315.52 Amount Amiodarone 300 mg In 250 237.917 250 Dextrose 5% in Water 250 ml @ 0.5 MG/MIN 25 mls/hr IV .Q10H [facility] Rx#: [id number] Insulin Regular 100 unit 48.041 82.451 0 In Sodium Chloride 0.9% 100 ml @ Per Protocol IV .Q0M [facility] Rx#:[id number] Norepinephrine 8 mg In 379.437 292.689 Sodium Chloride 0.9% 250 ml @ 0.05 MCG/KG/MIN 10. 846 mls/hr IV .[id number] [facility] Rx#:[id number] Sodium Chloride 2.5MEQ/ml 983.75 Vial 10 meq In Amino Acid 5%-D15w 1,000 ml @ 75 mls/hr IV .BY DURATION [facility] Rx#:[id number] propofoL 1,000 mg In 272.489 280.262 65.52 Empty Bag 1 bag @ Titrate IV .Q0M [facility] Rx#: [id number] Output: Gastric Drainage 150 Urine 1365 1725 150 Emesis 0 Oral Regurgitation 400 Other: Voiding Method Indwelling Catheter Indwelling Catheter ABP, PAP, CO, CI - Last Documented Arterial Blood Pressure 114/50 Pulmonary Artery Pressure 33/14 Cardiac Output 6.7 Cardiac Index 3.1 - Exam General: [toxic], [no distress], [appears at stated age] On mechanical ventilation. Derm: [warm], [dry] Head: [atraumatic], [normocephalic], [symmetric] Eyes: [EOMI], [no lid lag], [anicteric sclera] Mouth: [no lip lesion], [mucus membranes moist] Cardiovascular: [S1S2 reg], [no murmur], [positive posterior tibial pulse bilateral], Lungs: [CTA bilateral], [no rhonchi, no rales] , [no accessory muscle use] Abdominal: [soft], [ nontender to palpation], [no guarding], [no appreciable organomegaly] Ext: [no gross muscle atrophy], [no edema], [no contractures] Neuro: [ CN II-XI grossly intact], [no focal neuro deficits] Psych: Sedated - Labs CBC & Chem 7: 08/04/20 04:00 08/04/20 04:00 Labs: Abnormal Lab Results - Last 24 Hours (Table) 1208/03/20 08/03/20 Range/Units 04:14 04:14 11:21 WBC (3.8-10.6) k/uL RBC (4.30-5.90) m/uL Hgb (13.0-17.5) gm/dL Hct (39.0-53.0) % RDW (11.5-15.5) % Plt Count (150-450) k/uL ABG pH (7.35-7.45) ABG O2 Saturation (94-97) % Sodium (137-145) mmol/L Potassium (3.5-5.1) mmol/L Carbon Dioxide (22-30) mmol/L BUN (9-20) mg/dL Creatinine (0.66-1.25) mg/dL Glucose (74-99) mg/dL POC Glucose (mg/dL) 130 H (75-99) mg/dL Calcium (8.4-10.2) mg/dL AST (17-59) U/L ALT (4-49) U/L C-Reactive Protein 120.4 H (<10.0) mg/L Total Protein (6.3-8.2) g/dL Albumin (3.5-5.0) g/dL Procalcitonin 2.26 H (0.02-0.09) ng/mL 08/03/20 08/03/20 08/03/20 Range/Units 13:13 15:06 16:17 WBC (3.8-10.6) k/uL RBC (4.30-5.90) m/uL Hgb (13.0-17.5) gm/dL Hct (39.0-53.0) % RDW (11.5-15.5) % Plt Count (150-450) k/uL ABG pH (7.35-7.45) ABG O2 Saturation (94-97) % Sodium (137-145) mmol/L Potassium (3.5-5.1) mmol/L Carbon Dioxide (22-30) mmol/L BUN (9-20) mg/dL Creatinine (0.66-1.25) mg/dL Glucose (74-99) mg/dL POC Glucose (mg/dL) 132 H 143 H 141 H (75-99) mg/dL Calcium (8.4-10.2) mg/dL AST (17-59) U/L ALT (4-49) U/L C-Reactive Protein (<10.0) mg/L Total Protein (6.3-8.2) g/dL Albumin (3.5-5.0) g/dL Procalcitonin (0.02-0.09) ng/mL 08/03/20 08/03/20 08/03/20 Range/Units 17:28 18:27 19:05 WBC (3.8-10.6) k/uL RBC (4.30-5.90) m/uL Hgb (13.0-17.5) gm/dL Hct (39.0-53.0) % RDW (11.5-15.5) % Plt Count (150-450) k/uL ABG pH (7.35-7.45) ABG O2 Saturation (94-97) % Sodium (137-145) mmol/L Potassium (3.5-5.1) mmol/L Carbon Dioxide (22-30) mmol/L BUN (9-20) mg/dL Creatinine (0.66-1.25) mg/dL Glucose (74-99) mg/dL POC Glucose (mg/dL) 112 H 130 H 134 H (75-99) mg/dL Calcium (8.4-10.2) mg/dL AST (17-59) U/L ALT (4-49) U/L C-Reactive Protein (<10.0) mg/L Total Protein (6.3-8.2) g/dL Albumin (3.5-5.0) g/dL Procalcitonin (0.02-0.09) ng/mL 08/03/20 08/03/20 08/03/20 Range/Units 19:58 22:01 23:46 WBC (3.8-10.6) k/uL RBC (4.30-5.90) m/uL Hgb (13.0-17.5) gm/dL Hct (39.0-53.0) % RDW (11.5-15.5) % Plt Count (150-450) k/uL ABG pH (7.35-7.45) ABG O2 Saturation (94-97) % Sodium (137-145) mmol/L Potassium (3.5-5.1) mmol/L Carbon Dioxide (22-30) mmol/L BUN (9-20) mg/dL Creatinine (0.66-1.25) mg/dL Glucose (74-99) mg/dL POC Glucose (mg/dL) 163 H 148 H 162 H (75-99) mg/dL Calcium (8.4-10.2) mg/dL AST (17-59) U/L ALT (4-49) U/L C-Reactive Protein (<10.0) mg/L Total Protein (6.3-8.2) g/dL Albumin (3.5-5.0) g/dL Procalcitonin (0.02-0.09) ng/mL 08/04/20 08/04/20 08/04/20 Range/Units 01:00 01:55 02:56 WBC (3.8-10.6) k/uL RBC (4.30-5.90) m/uL Hgb (13.0-17.5) gm/dL Hct (39.0-53.0) % RDW (11.5-15.5) % Plt Count (150-450) k/uL ABG pH (7.35-7.45) ABG O2 Saturation (94-97) % Sodium (137-145) mmol/L Potassium (3.5-5.1) mmol/L Carbon Dioxide (22-30) mmol/L BUN (9-20) mg/dL Creatinine (0.66-1.25) mg/dL Glucose (74-99) mg/dL POC Glucose (mg/dL) 154 H 154 H 167 H (75-99) mg/dL Calcium (8.4-10.2) mg/dL AST (17-59) U/L ALT (4-49) U/L C-Reactive Protein (<10.0) mg/L Total Protein (6.3-8.2) g/dL Albumin (3.5-5.0) g/dL Procalcitonin (0.02-0.09) ng/mL 08/04/20 08/04/20 08/04/20 Range/Units 03:56 04:00 04:00 WBC 30.8 H (3.8-10.6) k/uL RBC 2.66 L (4.30-5.90) m/uL Hgb 8.4 L (13.0-17.5) gm/dL Hct 25.1 L (39.0-53.0) % RDW 18.0 H (11.5-15.5) % Plt Count 113 L (150-450) k/uL ABG pH (7.35-7.45) ABG O2 Saturation (94-97) % Sodium 133 L (137-145) mmol/L Potassium 3.4 L (3.5-5.1) mmol/L Carbon Dioxide 21 L (22-30) mmol/L BUN 97 H (9-20) mg/dL Creatinine 2.61 H (0.66-1.25) mg/dL Glucose 137 H (74-99) mg/dL POC Glucose (mg/dL) 148 H (75-99) mg/dL Calcium 7.8 L (8.4-10.2) mg/dL AST 110 H (17-59) U/L ALT 253 H (4-49) U/L C-Reactive Protein 197.0 H (<10.0) mg/L Total Protein 4.2 L (6.3-8.2) g/dL Albumin 2.0 L (3.5-5.0) g/dL Procalcitonin (0.02-0.09) ng/mL 08/04/20 08/04/20 08/04/20 Range/Units 05:03 05:20 06:54 WBC (3.8-10.6) k/uL RBC (4.30-5.90) m/uL Hgb (13.0-17.5) gm/dL Hct (39.0-53.0) % RDW (11.5-15.5) % Plt Count (150-450) k/uL ABG pH 7.32 L (7.35-7.45) ABG O2 Saturation 99.0 H (94-97) % Sodium (137-145) mmol/L Potassium (3.5-5.1) mmol/L Carbon Dioxide (22-30) mmol/L BUN (9-20) mg/dL Creatinine (0.66-1.25) mg/dL Glucose (74-99) mg/dL POC Glucose (mg/dL) 135 H 115 H (75-99) mg/dL Calcium (8.4-10.2) mg/dL AST (17-59) U/L ALT (4-49) U/L C-Reactive Protein (<10.0) mg/L Total Protein (6.3-8.2) g/dL Albumin (3.5-5.0) g/dL Procalcitonin (0.02-0.09) ng/mL 08/04/20 08/04/20 08/04/20 Range/Units 08:04 09:28 10:08 WBC (3.8-10.6) k/uL RBC (4.30-5.90) m/uL Hgb (13.0-17.5) gm/dL Hct (39.0-53.0) % RDW (11.5-15.5) % Plt Count (150-450) k/uL ABG pH (7.35-7.45) ABG O2 Saturation (94-97) % Sodium (137-145) mmol/L Potassium (3.5-5.1) mmol/L Carbon Dioxide (22-30) mmol/L BUN (9-20) mg/dL Creatinine (0.66-1.25) mg/dL Glucose (74-99) mg/dL POC Glucose (mg/dL) 135 H 138 H 160 H (75-99) mg/dL Calcium (8.4-10.2) mg/dL AST (17-59) U/L ALT (4-49) U/L C-Reactive Protein (<10.0) mg/L Total Protein (6.3-8.2) g/dL Albumin (3.5-5.0) g/dL Procalcitonin (0.02-0.09) ng/mL Microbiology - Last 24 Hours (Table) 08/03/20 12:20 Catheter Tip Culture - Preliminary Catheter Tip 08/03/20 16:20 Gram Stain - Preliminary Sputum Sputum Culture - Preliminary 08/02/20 21:48 Blood Culture - Preliminary Blood No Growth after 24 hours 08/02/20 19:25 Blood Culture - Preliminary Blood No Growth after 24 hours Assessment and Plan Plan: Coronary artery disease -Status post coronary artery bypass grafting -Cardiothoracic and cardiology following -On aspirin DM 2 - Currently on insulin drip - A1C from 06/21/2020 5.2 Small Bowel Ischemia with subseqent Intraperitoneal hemorrhage - s/p second bowel resection with peritoneal washing POD 2, now with ileostomy - Still on IV Zosyn, day 10 - King cultures repeated, will follow Hypotension Likely sec to bowel ischemia, r/o sepsis On zosyn, anidulafungin added by ID On norepi currently A-fib with RVR On amio, eliquis d/melody, only on subcutaneous heparin now. CONNOR on CKD stage III Baseline cr 1.4-1.5 Likely cardiorenal syndrome, patient received contrast earlier in the admission. Received 1 dose of IV Lasix yesterday. Urine output 100-200 mL an hour ove rnight. Nephrology is following COPD with acute exacerbation - On DuoNeb scheduled Hypothyroidism status post partial thyroidectomy - synthroid Morbid obesity with BMI 30.5 -Outpatient structured weight loss Prognosis is poor
[2020-08-04 10:26] LABS: ABG HCO3 21 mmol/L (21-25); ABG Oxygen Saturation 99.1 % (94-97); ABG PCO2 44 mmHg (35-45); ABG PH 7.28 (7.35-7.45); ABG PO2 108 mmHg (83-108); ABG TCO2 22 mmol/L (19-24)
[2020-08-04 11:09] LABS: Glucose,Whole Blood 86 mg/dL (75-99)
[2020-08-04 12:00] LABS: Glucose,Whole Blood 127 mg/dL (75-99)
[2020-08-04 12:13] LABS: Allen Test Performed? No
[2020-08-04] MEDS: POTASSIUM CHLORIDE 20 MEQ in WATER FOR INJECTION 1 100ML.BAG IVPB SCH ×2 (12:20→13:15)
[2020-08-04 13:19] LABS: Glucose,Whole Blood 179 mg/dL (75-99)
[2020-08-04] MEDS: INSULIN REGULAR 100 UNIT in SODIUM CHLORIDE 0.9% 100 ML IV SCH (13:22)
--- NOTE | 2020-08-04 13:38 | P.PN ---
Subjective Progress Note Date: 08/04/20 CHIEF COMPLAINT: Status post CABG 2 vessels HISTORY OF PRESENT ILLNESS: Patient remains in the ICU and is intubated and sedated. He has been hypotensive and this currently on Levophed. He is on IV amiodarone for his atrial fibrillation. He is on TPN for nutrition support. NG tube output about 450 mL of black fluid. Afebrile. WBC has increased to 30.8 hemoglobin 8.4 creatinine 2.61 patient is now followed by ID rhexis was added yesterday. Case discussed with Dr. Frederick about adding a wound VAC to patient's abdominal wound PHYSICAL EXAM: VITAL SIGNS: Reviewed. GENERAL: Well-developed in no acute distress. HEENT: No sclera icterus. Extraocular movements grossly intact. Moist buccal mucosa. Head is atraumatic, normocephalic. ABDOMEN: Soft. Distended. Open incision dressing clean dry and intact . Ileostomy right side of abdomen with minimal drainage NEUROLOGIC: Intubated and sedated ASSESSMENT: 1. Intraperitoneal hemorrhage status post exploratory laparotomy, washout of peritoneal cavity and ileostomy on 08/02/2020 2. Ischemic small bowel with evidence of pneumatosis status post small bowel resection on 07/24/2020 3. Acute hypoxic respiratory failure requiring mechanical ventilation 4. symptomatic triple-vessel coronary artery disease status post 2 vessel coronary bypass grafting surgery 5. Diabetes mellitus type 2 PLAN: -Recommend placing wound VAC on abdominal open incision. Discussed with infectious disease -Continue antibiotics -Continue supportive care -DVT prophylaxis subcu Heparin and GI prophylaxis Protonix Physician Rehabilitator note has been reviewed by physician. Signing provider agrees with the documented findings, assessment, and plan of care. Objective - Vital Signs Vital signs: Vital Signs Temp 97.6 F 08/04/20 08:00 Pulse 65 08/04/20 13:00 Resp 28 H 08/04/20 13:00 BP 104/50 08/04/20 12:30 Pulse Ox 100 08/04/20 13:00 Intake & Output 08/03/20 08/04/20 08/04/20 18:59 06:59 18:59 Intake Total 2443.967 3806.069 1958.923 Output Total 1515 2125 975 Balance 453.087 8331.069 983.923 Weight 107.4 kg 107.4 kg Intake: IV 1494 1929 1521 Amiodarone 300 mg In 250 25 Dextrose 5% in Water 250 ml @ 0.5 MG/MIN 25 mls/hr IV .Q10H [facility] Rx#: [id number] Anidulafungin 200 mg In 200 200 Sodium Chloride 0.9% 200 ml @ 84 mls/hr IVPB ONCE ONE Rx#:[id number] DAPTOmycin 650 mg In 50 Sodium Chloride 0.9% 50 ml @ 100 mls/hr IVPB Q48H [facility] Rx#:[id number] Magnesium Sulfate-D5w Pmx 200 1 gm In Dextrose/Water 1 100ml.bag @ 100 mls/hr IVPB Q1H [facility] Rx#: [id number] Piperacillin-Tazobactam 3 100 100 .375 gm In Sodium Chloride 0.9% 100 ml @ 25 mls/hr IVPB Q8HR [facility] Rx# :[id number] Potassium Chloride 10 meq 300 400 In Water For Injection 1 100ml.bag @ 100 mls/hr IVPB Q1H [facility] Rx#: [id number] Potassium Chloride 20 meq 100 In Water For Injection 1 100ml.bag @ 50 mls/hr IVPB Q2H [facility] Rx#: [id number] Sodium Chloride 0.9% 1, 240 240 100 000 ml @ 20 mls/hr IV . Q24H [facility] Rx#:[id number] TPN 900 900 525 pressure bag 54 39 21 Intake, IV Titration 574.147 9506.069 437.923 Amount Amiodarone 300 mg In 250 237.917 250 Dextrose 5% in Water 250 ml @ 0.5 MG/MIN 25 mls/hr IV .Q10H [facility] Rx#: [id number] Insulin Regular 100 unit 48.041 82.451 28.049 In Sodium Chloride 0.9% 100 ml @ Per Protocol IV .Q0M [facility] Rx#:[id number] Norepinephrine 8 mg In 379.437 292.689 64.712 Sodium Chloride 0.9% 250 ml @ 0.05 MCG/KG/MIN 10. 846 mls/hr IV .[id number] [facility] Rx#:[id number] Sodium Chloride 2.5MEQ/ml 983.75 Vial 10 meq In Amino Acid 5%-D15w 1,000 ml @ 75 mls/hr IV .BY DURATION [facility] Rx#:[id number] propofoL 1,000 mg In 272.489 280.262 95.162 Empty Bag 1 bag @ Titrate IV .Q0M [facility] Rx#: [id number] Output: Gastric Drainage 150 Urine 1365 1725 975 Emesis 0 0 Oral Regurgitation 400 Other: Voiding Method Indwelling Catheter Indwelling Catheter ABP, PAP, CO, CI - Last Documented Arterial Blood Pressure 112/48 Pulmonary Artery Pressure 33/14 Cardiac Output 6.7 Cardiac Index 3.1 - Labs CBC & Chem 7: 08/04/20 04:00 08/04/20 04:00 Labs: Abnormal Lab Results - Last 24 Hours (Table) 08/03/20 08/03/20 08/03/20 Range/Units 04:14 15:06 16:17 WBC (3.8-10.6) k/uL RBC (4.30-5.90) m/uL Hgb (13.0-17.5) gm/dL Hct (39.0-53.0) % RDW (11.5-15.5) % Plt Count (150-450) k/uL ABG pH (7.35-7.45) ABG O2 Saturation (94-97) % Sodium (137-145) mmol/L Potassium (3.5-5.1) mmol/L Carbon Dioxide (22-30) mmol/L BUN (9-20) mg/dL Creatinine (0.66-1.25) mg/dL Glucose (74-99) mg/dL POC Glucose (mg/dL) 143 H 141 H (75-99) mg/dL Calcium (8.4-10.2) mg/dL AST (17-59) U/L ALT (4-49) U/L C-Reactive Protein (<10.0) mg/L Total Protein (6.3-8.2) g/dL Albumin (3.5-5.0) g/dL Procalcitonin 2.26 H (0.02-0.09) ng/mL 08/03/20 08/03/20 08/03/20 Range/Units 17:28 18:27 19:05 WBC (3.8-10.6) k/uL RBC (4.30-5.90) m/uL Hgb (13.0-17.5) gm/dL Hct (39.0-53.0) % RDW (11.5-15.5) % Plt Count (150-450) k/uL ABG pH (7.35-7.45) ABG O2 Saturation (94-97) % Sodium (137-145) mmol/L Potassium (3.5-5.1) mmol/L Carbon Dioxide (22-30) mmol/L BUN (9-20) mg/dL Creatinine (0.66-1.25) mg/dL Glucose (74-99) mg/dL POC Glucose (mg/dL) 112 H 130 H 134 H (75-99) mg/dL Calcium (8.4-10.2) mg/dL AST (17-59) U/L ALT (4-49) U/L C-Reactive Protein (<10.0) mg/L Total Protein (6.3-8.2) g/dL Albumin (3.5-5.0) g/dL Procalcitonin (0.02-0.09) ng/mL 08/03/20 08/03/20 08/03/20 Range/Units 19:58 22:01 23:46 WBC (3.8-10.6) k/uL RBC (4.30-5.90) m/uL Hgb (13.0-17.5) gm/dL Hct (39.0-53.0) % RDW (11.5-15.5) % Plt Count (150-450) k/uL ABG pH (7.35-7.45) ABG O2 Saturation (94-97) % Sodium (137-145) mmol/L Potassium (3.5-5.1) mmol/L Carbon Dioxide (22-30) mmol/L BUN (9-20) mg/dL Creatinine (0.66-1.25) mg/dL Glucose (74-99) mg/dL POC Glucose (mg/dL) 163 H 148 H 162 H (75-99) mg/dL Calcium (8.4-10.2) mg/dL AST (17-59) U/L ALT (4-49) U/L C-Reactive Protein (<10.0) mg/L Total Protein (6.3-8.2) g/dL Albumin (3.5-5.0) g/dL Procalcitonin (0.02-0.09) ng/mL 08/04/20 08/04/20 08/04/20 Range/Units 01:00 01:55 02:56 WBC (3.8-10.6) k/uL RBC (4.30-5.90) m/uL Hgb (13.0-17.5) gm/dL Hct (39.0-53.0) % RDW (11.5-15.5) % Plt Count (150-450) k/uL ABG pH (7.35-7.45) ABG O2 Saturation (94-97) % Sodium (137-145) mmol/L Potassium (3.5-5.1) mmol/L Carbon Dioxide (22-30) mmol/L BUN (9-20) mg/dL Creatinine (0.66-1.25) mg/dL Glucose (74-99) mg/dL POC Glucose (mg/dL) 154 H 154 H 167 H (75-99) mg/dL Calcium (8.4-10.2) mg/dL AST (17-59) U/L ALT (4-49) U/L C-Reactive Protein (<10.0) mg/L Total Protein (6.3-8.2) g/dL Albumin (3.5-5.0) g/dL Procalcitonin (0.02-0.09) ng/mL 08/04/20 08/04/20 08/04/20 Range/Units 03:56 04:00 04:00 WBC 30.8 H (3.8-10.6) k/uL RBC 2.66 L (4.30-5.90) m/uL Hgb 8.4 L (13.0-17.5) gm/dL Hct 25.1 L (39.0-53.0) % RDW 18.0 H (11.5-15.5) % Plt Count 113 L (150-450) k/uL ABG pH (7.35-7.45) ABG O2 Saturation (94-97) % Sodium 133 L (137-145) mmol/L Potassium 3.4 L (3.5-5.1) mmol/L Carbon Dioxide 21 L (22-30) mmol/L BUN 97 H (9-20) mg/dL Creatinine 2.61 H (0.66-1.25) mg/dL Glucose 137 H (74-99) mg/dL POC Glucose (mg/dL) 148 H (75-99) mg/dL Calcium 7.8 L (8.4-10.2) mg/dL AST 110 H (17-59) U/L ALT 253 H (4-49) U/L C-Reactive Protein 197.0 H (<10.0) mg/L Total Protein 4.2 L (6.3-8.2) g/dL Albumin 2.0 L (3.5-5.0) g/dL Procalcitonin (0.02-0.09) ng/mL 08/04/20 08/04/20 08/04/20 Range/Units 04:00 05:03 05:20 WBC (3.8-10.6) k/uL RBC (4.30-5.90) m/uL Hgb (13.0-17.5) gm/dL Hct (39.0-53.0) % RDW (11.5-15.5) % Plt Count (150-450) k/uL ABG pH 7.32 L (7.35-7.45) ABG O2 Saturation 99.0 H (94-97) % Sodium (137-145) mmol/L Potassium (3.5-5.1) mmol/L Carbon Dioxide (22-30) mmol/L BUN (9-20) mg/dL Creatinine (0.66-1.25) mg/dL Glucose (74-99) mg/dL POC Glucose (mg/dL) 135 H (75-99) mg/dL Calcium (8.4-10.2) mg/dL AST (17-59) U/L ALT (4-49) U/L C-Reactive Protein (<10.0) mg/L Total Protein (6.3-8.2) g/dL Albumin (3.5-5.0) g/dL Procalcitonin 1.42 H (0.02-0.09) ng/mL 08/04/20 08/04/20 08/04/20 Range/Units 06:54 08:04 09:28 WBC (3.8-10.6) k/uL RBC (4.30-5.90) m/uL Hgb (13.0-17.5) gm/dL Hct (39.0-53.0) % RDW (11.5-15.5) % Plt Count (150-450) k/uL ABG pH (7.35-7.45) ABG O2 Saturation (94-97) % Sodium (137-145) mmol/L Potassium (3.5-5.1) mmol/L Carbon Dioxide (22-30) mmol/L BUN (9-20) mg/dL Creatinine (0.66-1.25) mg/dL Glucose (74-99) mg/dL POC Glucose (mg/dL) 115 H 135 H 138 H (75-99) mg/dL Calcium (8.4-10.2) mg/dL AST (17-59) U/L ALT (4-49) U/L C-Reactive Protein (<10.0) mg/L Total Protein (6.3-8.2) g/dL Albumin (3.5-5.0) g/dL Procalcitonin (0.02-0.09) ng/mL 08/04/20 08/04/20 08/04/20 Range/Units 10:08 10:17 11:59 WBC (3.8-10.6) k/uL RBC (4.30-5.90) m/uL Hgb (13.0-17.5) gm/dL Hct (39.0-53.0) % RDW (11.5-15.5) % Plt Count (150-450) k/uL ABG pH 7.28 L (7.35-7.45) ABG O2 Saturation 99.1 H (94-97) % Sodium (137-145) mmol/L Potassium (3.5-5.1) mmol/L Carbon Dioxide (22-30) mmol/L BUN (9-20) mg/dL Creatinine (0.66-1.25) mg/dL Glucose (74-99) mg/dL POC Glucose (mg/dL) 160 H 127 H (75-99) mg/dL Calcium (8.4-10.2) mg/dL AST (17-59) U/L ALT (4-49) U/L C-Reactive Protein (<10.0) mg/L Total Protein (6.3-8.2) g/dL Albumin (3.5-5.0) g/dL Procalcitonin (0.02-0.09) ng/mL 08/04/20 Range/Units 13:16 WBC (3.8-10.6) k/uL RBC (4.30-5.90) m/uL Hgb (13.0-17.5) gm/dL Hct (39.0-53.0) % RDW (11.5-15.5) % Plt Count (150-450) k/uL ABG pH (7.35-7.45) ABG O2 Saturation (94-97) % Sodium (137-145) mmol/L Potassium (3.5-5.1) mmol/L Carbon Dioxide (22-30) mmol/L BUN (9-20) mg/dL Creatinine (0.66-1.25) mg/dL Glucose (74-99) mg/dL POC Glucose (mg/dL) 179 H (75-99) mg/dL Calcium (8.4-10.2) mg/dL AST (17-59) U/L ALT (4-49) U/L C-Reactive Protein (<10.0) mg/L Total Protein (6.3-8.2) g/dL Albumin (3.5-5.0) g/dL Procalcitonin (0.02-0.09) ng/mL Microbiology - Last 24 Hours (Table) 08/03/20 12:20 Catheter Tip Culture - Preliminary Catheter Tip 08/03/20 16:20 Gram Stain - Preliminary Sputum Sputum Culture - Preliminary 08/02/20 21:48 Blood Culture - Preliminary Blood No Growth after 24 hours 08/02/20 19:25 Blood Culture - Preliminary Blood No Growth after 24 hours
--- NOTE | 2020-08-04 14:02 | CDI ---
Documentation Clarification Form Date: 08/03/2020 10:52:00 AM From: Halima Tom RN CCDS Admit Date: 07/18/2020 05:49:00 AM Patient Name: Francisco Tinoco Visit Number: [id number] ATTENTION: The Clinical Documentation Specialists (CDI) and [facility] Coding Staff appreciate your assistance in clarifying documentation. Please respond to the clarification below the line at the bottom and electronically sign. The CDI & [facility] Coding staff will review the response and follow-up if needed. Please note: Queries are made part of the Legal Health Record. If you have any questions, please contact the author of this message via ITS. Dr. Liz Hunter Hypotension is being documented in a surgical pt. requiring high doses of Levophed. Please provide clinical significance Patient history/risk factors: CABG, Ischemic Bowel with pneumomatosis, DM2, COPD, HTN, CONNOR w/ ATN on CKD Stage 3, prolonged mechanical ventilation Clinical Indicators: 07/18-08/02 Attending Progress Notes: "Estimated Blood Loss 1999 Assessment: Acute blood loss anemia and thrombocytopenia, anticipated outcome of surgery - follow CBC." 07/27 Nephrology Progress note: "Acute kidney injury, acute tubular necrosis, associated with hypotension, hemodynamic instability, currently nonoliguric and improved." 08/02 Cardiovascular Surgery Notes: Postoperative hypotension requiring initiation of norepinephrine drip, unexpected. Currently the patient is on norepinephrine drip at 21 mcg/per minute for some hypotension he developed throughout the evening. Assessment: Postoperative hypotension requiring initiation of norepinephrine drip, unexpected." 08/02 Nephrology Progress Note: "No proteinuria on UA. Renal function worse due to hypotension - creatinine 2.54 today." 08/02 Pulmonary Progress Note: "Reevaluated today on 08/02/20, over the last 24 hours, patient's clinical status has been deteriorating, he is developing hypotension requiring norepinephrine presently at 20 mcg/m, patient seems to be complaining of abdominal distention and tenderness, on physical examination his abdomen is quite tender." 08/02 Nephrology progress note: "Patient became hypotensive last night and is currently on Levophed." 08/02 Surgical Progress Note: "The patient has had a deterioration in his condition. He is now requiring pressor support. He has complaints of severe abdominal pain. On exam her respiratory rate is in the 30s.Patient appears to be in distress. Abdomen is soft with rebound tenderness." 08/02 Procedure Note: "Intraperitoneal hemorrhage" 08/02 0500 Vitals: RR 37, B/P 85/61, AB/P 114/42, Spo2 93% on 35% Bipap Treatment: 5 U PRBC transfused total since admission 07/19, 07/22, 07/25 Albumin 5% 250 ml 08/02 Albumin 5% 500 ml IVF @ 20 cc/hr. TPN at varying rates and concentrations based on daily labs In your professional opinion, can you please further specify the hypotension and cause if known if known? Septic Shock Suspected or known causative organism Any associated organ failure Cardiogenic Shock Cause Hypovolemic Shock Cause Other, please specify Unable to determine (Last Revision: May 2017) septic shock MTDD
[2020-08-04 14:10] LABS: Glucose,Whole Blood 155 mg/dL (75-99)
[2020-08-04 15:20] LABS: Glucose,Whole Blood 150 mg/dL (75-99)
--- NOTE | 2020-08-04 15:56 | P.PN ---
Subjective Progress Note Date: 08/04/20 Principal diagnosis: Status post CABG, postoperative day # 16 79-year-old white male patient with past medical history of hypertension, hyperlipidemia, moderate to severe COPD with the baseline FEV1 of 56% of predicted who came in on 07/18/2020 for elective two-vessel bypass grafting with PABLO to LAD, and SVG to the PDA. He was seen in the intensive care unit following surgery, patient was successfully weaned and extubated from mechanical ventilator and under 6 hours following his OR exit, is currently awake and alert, sitting in the chair, he is currently on 2 L of oxygen, his pulse ox is 98%, hemodynamically he stable, blood pressure is 106/51, PA pressures 35/11, CVP is 8, no fever or chills, IV fluids including the 0.9 normal saline at a rate of 30 ML per hour, insulin is 4.5 units per hour, no vasoactive drips. Today's chest x-ray shows a pneumoperitoneum with lucency present underneath the right hemidiaphragm. He has left pleural and mediastinal chest tube, and there has been 500 mL of serosanguineous output from the left pleural and 350 mL from the mediastinal chest tube in the last 24 hours. Is having some mild discomfort under the right rib cage, but no acute distress, abdomen is distended but soft, he is hemodynamically stable, he is in sinus mechanism, no nausea vomiting or diarrhea. CT of the abdomen and pelvis is pending today's labs have been reviewed, showing white blood cell count of 11.9, hemoglobin of 9, sodium is 133, the rest of the electrolytes were within normal limits, B1 is 25 creatinine is 1.18 On 07/21/2020 patient seen in follow-up in the intensive care unit, today is postoperative day 3 status post three-vessel coronary artery bypass grafting, (patient became more short of breath, wheezy, patient has a known history of moderately severe COPD/emphysema, we started him on IV Solu-Medrol, and Pulmicort and Perforomist were added. This morning she remains on 3 L of oxygen his pulse ox is 94-95%, hemodynamically he stable, he just on plan and was seen and rated 20 ML per hour, insulin is a 2.5 units per hour, today's chest x-ray showing slight increased bibasilar atelectasis or infiltrates. He thinks the breathing treatments in the steroids have significantly helped, breathing easier, he is achieving 500-750 on his incentive spirometer, not able to bring up any sputum yet. he is currently sitting up in a chair, in no acute distress, his incisional pain is fairly well-controlled, patient had another episode of A. fib with RVR last night, he is back in sinus rhythm with a controlled rate this morning. He received a dose of Lasix this morning. Chest tubes have been discontinued. On 07/31/2020 patient seen in follow-up in the intensive care unit. He is postoperative day 12 status post three-vessel bypass grafting, and postoperative day #7 status post exploratory laparotomy and small bowel resection, he is awake and alert, he was extubated yesterday to a BiPAP support, this morning he remains on BiPAP, pressures of 10 and 5, and FiO2 of 35%, and his pulse ox is 100%, hemodynamically he stable, he is A. fib on a monitor with a rate of 98 BPM, he is currently on 9.9 normal seen at a rate of 10 ML per hour, insulin is at 2 units per hour, amiodarone at 0.5 mg per hour, heparin is at weight-based protocol, and TPN is a 75 ML per hour. Today's chest x-ray shows a stable portable chest, with bibasilar infiltrates greater on the right. She remains on Lasix at 40 mg every 12 hours, and he is negative fluid balance negative, at - 645 ML over the last 24 hours. No fever or chills, appears to be normally swollen, we will plus edema in lower extremities, his labs have been reviewed, showing white blood cell count 15.1, hemoglobin of 8, sodium of 132, potassium is 3.5, chloride is 100, his BUN is 63, and a creatinine is 1.94, calcitonin is trending down, down to 1.41 from 3.53. He remains on Zosyn or antibiotic coverage for evidence of Pseudomonas in his sputum culture. His NG tube in place to low intermittent suction, and there has been about 400 mL of bilious output in the last 24 hours, patient is passing gas but has not had any bowel movement yet. Surgical services are following. Reevaluated today on 08/01/20, patient remains in the ICU, presently on 5 L nasal cannula, was on BiPAP last night. Patient remains on TPN, amiodarone at 0.5 mg/m, he is also on insulin at 4 units per hour. Patient looks frail, he is postoperative day #13 status post CABG, and postoperative day #8 post exploratory laparotomy and small bowel resection. Patient was extubated on , intermittently on BiPAP especially at night. Patient is hemodynamically stable, not requiring any pressors. Remains on diuretics, and his chest x-ray today showed worsening bibasilar infiltrates and small effusions, remain empirically on antibiotics. Patient remains on Zosyn, and his sputum was positive for pseudomonas aeruginosa. WBC count is 17.7 hemoglobin is 7.9. Electrolytes are normal except for slightly low potassium of 3.3, renal profile is about the same as it has been in the last few days, BUN of 69 and creatinine of 1.89. Pro-calcitonin is coming down, it is 1.41 Reevaluated today on 08/02/20, over the last 24 hours, patient's clinical status has been deteriorating, he is developing hypotension requiring norepinephrine presently at 20 mcg/m, patient seems to be complaining of abdominal distention and tenderness, on physical examination his abdomen is quite tender. CBC showed leukocytosis with WBC count of 29.1. Hemoglobin is 6.8, there is positive bandemia noted on the differential. BUN is up to 91 creatinine 2.54, lactic acid is 1.4 this morning. ABG today showed a pO2 of 82 pCO2 of 51 pH of 7.29 patient has absent bowel sounds on examination, and his nasogastric tube continues to have significant drainage with bile colored drainage about 300 mL in the last 8 hours. Patient remains on TPN at 75 ML per hour, and he is also on amiodarone for atrial fibrillation. Rate seems to be controlled with amiodarone. Patient remains on Zosyn for antibiotics coverage. His sputum culture came back positive for Pseudomonas fluorescence. This was from 07/24/20. General surgery was notified about this condition and the patient will undergo expiratory laparotomy again today. This is supposed to be done as soon as possible. Patient was intubated in the ICU by JORGE, chest x-ray showed bibasilar atelectasis and small pleural effusions today. His ventilator sett ings at present are assist control rate of 24 volume is 500 FiO2 is 50% PEEP is 5. ABG post intubation showed a pO2 of 292 pCO2 of 52 pH of 7.28. Hence FiO2 was cut down to 50%. And The vent settings otherwise the same. Reevaluated today on 08/03/20, patient remains in the ICU, patient had another exploratory laparotomy yesterday, and he was found to have significant amount of blood in the peritoneal cavity. Ended up with expiratory laparotomy and ileostomy with small bowel resection. Patient is now postoperative day #17, double coronary artery bypass grafting postoperative day #10 small bowel resection postoperative day #1 expiratory laparotomy washout of peritoneal cavity and ileostomy. Patient was sent back to the ICU on mechanical ventilation, and he remains intubated and mechanically ventilated. Patient is sedated, he is requiring significant amount of norepinephrine at 17 mcg/m, he is on propofol at 50 mcg/kg/m amiodarone 0.5 mg/m patient is also on TPN and on insulin at 4 units per hour. His ventilator settings are assist control rate 24 tidal volume is 500 FiO2 is 40% PEEP is 5 ABG showed a pO2 of 86 pCO2 of 42 pH of 7.32. Considering his peritoneal bleeding, it was recommended by surgery not to use any high-dose Lovenox, patient is on only subcu heparin. Also recommended by surgery not to wean and I believe the patient is not amenable at this point, especially with him requiring norepinephrine and he is hemodynamically considered unstable. Patient is in atrial fibrillation rate of 97 but seems to be controlled. Urine output is about 50 mL per hour. Chest x- ray showed bilateral pleural effusions. Patient is receiving albumin and diuretics. Today we went ahead and removed his right femoral arterial line, and placed a new left radial arterial line. Reevaluated today on 08/04/20, patient remains in the ICU, intubated, sedated, patient was given a sedation holiday, however he became extremely agitated, and had to place him back on propofol. Patient is on assist control rate of 24 tidal volume is 500 FiO2 is 40% PEEP of 5. ABG showed a pO2 of 106 pCO2 of 40 pH of 7.32. Patient remains on multiple drips including norepinephrine at 0.15 mcg/kg/m, he is also on propofol at 40 mcg/kg/m, insulin at 8 units per hour, amiodarone at 0.5 mg/m. Patient is receiving TPN at 75 mL per hour. Antibiotics mix he is on Zosyn and on atelectasis. Patient is now postoperative day #18, double coronary artery bypass grafting. Postoperative day #11 small bowel resection postoperative day #2 expiratory laparotomy and ileostomy. Patient did not tolerate to be off sedation hence had to place him back on propofol, and I clearly felt that the patient is not ready for weaning. Chest x-ray continues to show small bilateral pleural effusions. Considering the patient is -1750 ML in the last 24 hours, and I would hold the Lasix. We will wean pressors. And will wean and possibly discontinue sedation if tolerates. Patient is not ready to be extubated at this point. Objective - Vital Signs Vital signs: Vital Signs Temp 97.6 F 08/04/20 08:00 Pulse 62 08/04/20 14:00 Resp 25 H 08/04/20 14:00 BP 86/64 08/04/20 13:30 Pulse Ox 100 08/04/20 14:00 Intake & Output 08/03/20 08/04/20 08/04/20 18:59 06:59 18:59 Intake Total 2443.967 3806.069 2232.153 Output Total 1515 2125 1075 Balance 725.381 0115.069 1157.153 Weight 107.4 kg 107.4 kg Intake: IV 1494 1929 1699 Amiodarone 300 mg In 250 25 Dextrose 5% in Water 250 ml @ 0.5 MG/MIN 25 mls/hr IV .Q10H [facility] Rx#: [id number] Anidulafungin 200 mg In 200 200 Sodium Chloride 0.9% 200 ml @ 84 mls/hr IVPB ONCE ONE Rx#:[id number] DAPTOmycin 650 mg In 50 Sodium Chloride 0.9% 50 ml @ 100 mls/hr IVPB Q48H [facility] Rx#:[id number] Magnesium Sulfate-D5w Pmx 200 1 gm In Dextrose/Water 1 100ml.bag @ 100 mls/hr IVPB Q1H [facility] Rx#: [id number] Piperacillin-Tazobactam 3 100 100 .375 gm In Sodium Chloride 0.9% 100 ml @ 25 mls/hr IVPB Q8HR [facility] Rx# :[id number] Potassium Chloride 10 meq 300 400 In Water For Injection 1 100ml.bag @ 100 mls/hr IVPB Q1H [facility] Rx#: [id number] Potassium Chloride 20 meq 200 In Water For Injection 1 100ml.bag @ 50 mls/hr IVPB Q2H [facility] Rx#: [id number] Sodium Chloride 0.9% 1, 240 240 100 000 ml @ 20 mls/hr IV . Q24H [facility] Rx#:[id number] TPN 900 900 600 pressure bag 54 39 24 Intake, IV Titration 530.199 6250.069 533.153 Amount Amiodarone 300 mg In 250 237.917 250 Dextrose 5% in Water 250 ml @ 0.5 MG/MIN 25 mls/hr IV .Q10H [facility] Rx#: [id number] Insulin Regular 100 unit 48.041 82.451 47.482 In Sodium Chloride 0.9% 100 ml @ Per Protocol IV .Q0M [facility] Rx#:[id number] Norepinephrine 8 mg In 379.437 292.689 72.847 Sodium Chloride 0.9% 250 ml @ 0.05 MCG/KG/MIN 10. 846 mls/hr IV .[id number] [facility] Rx#:[id number] Sodium Chloride 2.5MEQ/ml 983.75 Vial 10 meq In Amino Acid 5%-D15w 1,000 ml @ 75 mls/hr IV .BY DURATION [facility] Rx#:[id number] propofoL 1,000 mg In 272.489 280.262 162.824 Empty Bag 1 bag @ Titrate IV .Q0M [facility] Rx#: [id number] Output: Gastric Drainage 150 Urine 1365 1725 1075 Emesis 0 0 Oral Regurgitation 400 Other: Voiding Method Indwelling Catheter Indwelling Catheter ABP, PAP, CO, CI - Last Documented Arterial Blood Pressure 109/47 Pulmonary Artery Pressure 33/14 Cardiac Output 6.7 Cardiac Index 3.1 - Exam GENERAL EXAM: 80-year-old intubated mechanically ventilated, sedated, in no distress.. HEAD: Normocephalic/atraumatic. The tracheal tube is intact ENT: PERRLA, EOMI, no icterus, no neck masses, no JVD, no stridor. CHEST: No chest wall deformity. Symmetrical expansion. Sternal incision is clean dry and intact, chest tube sites clean dry and intact LUNGS: Equal air entry fine crackles at the base. CVS: irregular rate and rhythm, normal S1 and S2, no gallops, no murmurs, no rubs ABDOMEN: Distended abdomen, tenderness on palpation, no bowel sounds. Abdominal incision is clean. Ileostomy is noted EXTREMITIES: Trace of edema no clubbing no cyanosis. Pulses bilaterally.. MUSCULOSKELETAL: Could not assess, patient was generally weak. SKIN: No rashes CENTRAL NERVOUS SYSTEM: Off sedation, patient was noted to be appropriate, followed simple instructions, but he was getting agitated, tachypneic and ta chycardic. Could not tolerate being off sedation prolonged period hence had to be placed back on propofol. - Labs CBC & Chem 7: 08/04/20 04:00 08/04/20 04:00 Labs: Abnormal Lab Results - Last 24 Hours (Table) 08/03/20 08/03/20 08/03/20 Range/Units 04:14 16:17 17:28 WBC (3.8-10.6) k/uL RBC (4.30-5.90) m/uL Hgb (13.0-17.5) gm/dL Hct (39.0-53.0) % RDW (11.5-15.5) % Plt Count (150-450) k/uL ABG pH (7.35-7.45) ABG O2 Saturation (94-97) % Sodium (137-145) mmol/L Potassium (3.5-5.1) mmol/L Carbon Dioxide (22-30) mmol/L BUN (9-20) mg/dL Creatinine (0.66-1.25) mg/dL Glucose (74-99) mg/dL POC Glucose (mg/dL) 141 H 112 H (75-99) mg/dL Calcium (8.4-10.2) mg/dL AST (17-59) U/L ALT (4-49) U/L C-Reactive Protein (<10.0) mg/L Total Protein (6.3-8.2) g/dL Albumin (3.5-5.0) g/dL Procalcitonin 2.26 H (0.02-0.09) ng/mL 08/03/20 08/03/20 08/03/20 Range/Units 18:27 19:05 19:58 WBC (3.8-10.6) k/uL RBC (4.30-5.90) m/uL Hgb (13.0-17.5) gm/dL Hct (39.0-53.0) % RDW (11.5-15.5) % Plt Count (150-450) k/uL ABG pH (7.35-7.45) ABG O2 Saturation (94-97) % Sodium (137-145) mmol/L Potassium (3.5-5.1) mmol/L Carbon Dioxide (22-30) mmol/L BUN (9-20) mg/dL Creatinine (0.66-1.25) mg/dL Glucose (74-99) mg/dL POC Glucose (mg/dL) 130 H 134 H 163 H (75-99) mg/dL Calcium (8.4-10.2) mg/dL AST (17-59) U/L ALT (4-49) U/L C-Reactive Protein (<10.0) mg/L Total Protein (6.3-8.2) g/dL Albumin (3.5-5.0) g/dL Procalcitonin (0.02-0.09) ng/mL 08/03/20 08/03/20 08/04/20 Range/Units 22:01 23:46 01:00 WBC (3.8-10.6) k/uL RBC (4.30-5.90) m/uL Hgb (13.0-17.5) gm/dL Hct (39.0-53.0) % RDW (11.5-15.5) % Plt Count (150-450) k/uL ABG pH (7.35-7.45) ABG O2 Saturation (94-97) % Sodium (137-145) mmol/L Potassium (3.5-5.1) mmol/L Carbon Dioxide (22-30) mmol/L BUN (9-20) mg/dL Creatinine (0.66-1.25) mg/dL Glucose (74-99) mg/dL POC Glucose (mg/dL) 148 H 162 H 154 H (75-99) mg/dL Calcium (8.4-10.2) mg/dL AST (17-59) U/L ALT (4-49) U/L C-Reactive Protein (<10.0) mg/L Total Protein (6.3-8.2) g/dL Albumin (3.5-5.0) g/dL Procalcitonin (0.02-0.09) ng/mL 08/04/20 08/04/20 08/04/20 Range/Units 01:55 02:56 03:56 WBC (3.8-10.6) k/uL RBC (4.30-5.90) m/uL Hgb (13.0-17.5) gm/dL Hct (39.0-53.0) % RDW (11.5-15.5) % Plt Count (150-450) k/uL ABG pH (7.35-7.45) ABG O2 Saturation (94-97) % Sodium (137-145) mmol/L Potassium (3.5-5.1) mmol/L Carbon Dioxide (22-30) mmol/L BUN (9-20) mg/dL Creatinine (0.66-1.25) mg/dL Glucose (74-99) mg/dL POC Glucose (mg/dL) 154 H 167 H 148 H (75-99) mg/dL Calcium (8.4-10.2) mg/dL AST (17-59) U/L ALT (4-49) U/L C-Reactive Protein (<10.0) mg/L Total Protein (6.3-8.2) g/dL Albumin (3.5-5.0) g/dL Procalcitonin (0.02-0.09) ng/mL 08/04/20 08/04/20 08/04/20 Range/Units 04:00 04:00 04:00 WBC 30.8 H (3.8-10.6) k/uL RBC 2.66 L (4.30-5.90) m/uL Hgb 8.4 L (13.0-17.5) gm/dL Hct 25.1 L (39.0-53.0) % RDW 18.0 H (11.5-15.5) % Plt Count 113 L (150-450) k/uL ABG pH (7.35-7.45) ABG O2 Saturation (94-97) % Sodium 133 L (137-145) mmol/L Potassium 3.4 L (3.5-5.1) mmol/L Carbon Dioxide 21 L (22-30) mmol/L BUN 97 H (9-20) mg/dL Creatinine 2.61 H (0.66-1.25) mg/dL Glucose 137 H (74-99) mg/dL POC Glucose (mg/dL) (75-99) mg/dL Calcium 7.8 L (8.4-10.2) mg/dL AST 110 H (17-59) U/L ALT 253 H (4-49) U/L C-Reactive Protein 197.0 H (<10.0) mg/L Total Protein 4.2 L (6.3-8.2) g/dL Albumin 2.0 L (3.5-5.0) g/dL Procalcitonin 1.42 H (0.02-0.09) ng/mL 08/04/20 08/04/20 08/04/20 Range/Units 05:03 05:20 06:54 WBC (3.8-10.6) k/uL RBC (4.30-5.90) m/uL Hgb (13.0-17.5) gm/dL Hct (39.0-53.0) % RDW (11.5-15.5) % Plt Count (150-450) k/uL ABG pH 7.32 L (7.35-7.45) ABG O2 Saturation 99.0 H (94-97) % Sodium (137-145) mmol/L Potassium (3.5-5.1) mmol/L Carbon Dioxide (22-30) mmol/L BUN (9-20) mg/dL Creatinine (0.66-1.25) mg/dL Glucose (74-99) mg/dL POC Glucose (mg/dL) 135 H 115 H (75-99) mg/dL Calcium (8.4-10.2) mg/dL AST (17-59) U/L ALT (4-49) U/L C-Reactive Protein (<10.0) mg/L Total Protein (6.3-8.2) g/dL Albumin (3.5-5.0) g/dL Procalcitonin (0.02-0.09) ng/mL 08/04/20 08/04/20 08/04/20 Range/Units 08:04 09:28 10:08 WBC (3.8-10.6) k/uL RBC (4.30-5.90) m/uL Hgb (13.0-17.5) gm/dL Hct (39.0-53.0) % RDW (11.5-15.5) % Plt Count (150-450) k/uL ABG pH (7.35-7.45) ABG O2 Saturation (94-97) % Sodium (137-145) mmol/L Potassium (3.5-5.1) mmol/L Carbon Dioxide (22-30) mmol/L BUN (9-20) mg/dL Creatinine (0.66-1.25) mg/dL Glucose (74-99) mg/dL POC Glucose (mg/dL) 135 H 138 H 160 H (75-99) mg/dL Calcium (8.4-10.2) mg/dL AST (17-59) U/L ALT (4-49) U/L C-Reactive Protein (<10.0) mg/L Total Protein (6.3-8.2) g/dL Albumin (3.5-5.0) g/dL Procalcitonin (0.02-0.09) ng/mL 08/04/20 08/04/20 08/04/20 Range/Units 10:17 11:59 13:16 WBC (3.8-10.6) k/uL RBC (4.30-5.90) m/uL Hgb (13.0-17.5) gm/dL Hct (39.0-53.0) % RDW (11.5-15.5) % Plt Count (150-450) k/uL ABG pH 7.28 L (7.35-7.45) ABG O2 Saturation 99.1 H (94-97) % Sodium (137-145) mmol/L Potassium (3.5-5.1) mmol/L Carbon Dioxide (22-30) mmol/L BUN (9-20) mg/dL Creatinine (0.66-1.25) mg/dL Glucose (74-99) mg/dL POC Glucose (mg/dL) 127 H 179 H (75-99) mg/dL Calcium (8.4-10.2) mg/dL AST (17-59) U/L ALT (4-49) U/L C-Reactive Protein (<10.0) mg/L Total Protein (6.3-8.2) g/dL Albumin (3.5-5.0) g/dL Procalcitonin (0.02-0.09) ng/mL 08/04/20 08/04/20 Range/Units 14:08 15:18 WBC (3.8-10.6) k/uL RBC (4.30-5.90) m/uL Hgb (13.0-17.5) gm/dL Hct (39.0-53.0) % RDW (11.5-15.5) % Plt Count (150-450) k/uL ABG pH (7.35-7.45) ABG O2 Saturation (94-97) % Sodium (137-145) mmol/L Potassium (3.5-5.1) mmol/L Carbon Dioxide (22-30) mmol/L BUN (9-20) mg/dL Creatinine (0.66-1.25) mg/dL Glucose (74-99) mg/dL POC Glucose (mg/dL) 155 H 150 H (75-99) mg/dL Calcium (8.4-10.2) mg/dL AST (17-59) U/L ALT (4-49) U/L C-Reactive Protein (<10.0) mg/L Total Protein (6.3-8.2) g/dL Albumin (3.5-5.0) g/dL Procalcitonin (0.02-0.09) ng/mL Microbiology - Last 24 Hours (Table) 08/03/20 16:20 Gram Stain - Preliminary Sputum Sputum Culture - Preliminary 08/03/20 12:20 Catheter Tip Culture - Preliminary Catheter Tip 08/02/20 21:48 Blood Culture - Preliminary Blood No Growth after 24 hours 08/02/20 19:25 Blood Culture - Preliminary Blood No Growth after 24 hours Assessment and Plan Assessment: #1. Symptomatic coronary artery disease, status post two-vessel coronary artery bypass grafting with PABLO to the LAD, SVG to the PDA, postoperative day #18 #2. Postoperative atrial fibrillation with rapid ventricular response requiring amiodarone and metoprolol, currently on heparin for anticoagulation #3. Acute ischemic small bowel, pneumatosis, status post exploratory laparotomy and small bowel resection, on 07/24/2020, today is postoperative day number 11 #4. Acute hypoxic respiratory failure following bowel surgery, patient was extubated on 07/30/2022 BiPAP at night, and nasal cannula during the day. #5. Small atelectatic/pleural effusions involving both lung bases in addition to a small to moderate bilateral pleural effusion cannot rule out underlying infiltrate. Certainly secondary to Pseudomonas. #6. Evidence of Pseudomonas in the sputum culture, patient is covered with Zosyn for antibiotic coverage #7. History of coronary artery disease with previous stent placement #8. History of hypertension #9. History of hyperlipidemia #10. Acute on chronic kidney injury. #11. COPD moderate to severe with preop FEV1 of 53% of predicted #12. 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 Chronic kidney disease stage III at baseline #14. Diabetes mellitus type 2 #15. Postoperative acute blood loss anemia, expected outcome of open heart surgery #16. Postoperative paroxysmal A. fib, patient has had 2 episodes of A. fib with RVR in the postoperative period #17. Hypothyroidism status post partial thyroidectomy #18. Status post exploratory laparotomy and ileostomy postoperative day #2 Recommendation: Continue hemodynamic support. Titrate norepinephrine and discontinued if tolerated. Continue ventilatory support. Patient is not ready for any weaning at this point. Attempted taking well propofol, did not do well. Continue same ventilator settings. . Continue Zosyn. Hold diuretics for today. Continue present supportive care measures Continue TPN. Continue low-dose aspirin and beta blockers. Continue amiodarone. Continue GI and DVT prophylaxis. Subcu heparin Prognosis is definitely poor and guarded. We'll continue to follow. Critical care time is over 30 minutes Time with Patient: Greater than 30
[2020-08-04 16:09] LABS: Glucose,Whole Blood 97 mg/dL (75-99)
[2020-08-04 17:02] LABS: Glucose,Whole Blood 149 mg/dL (75-99)
[2020-08-04 17:56] LABS: Glucose,Whole Blood 161 mg/dL (75-99)
[2020-08-04 19:03] LABS: Glucose,Whole Blood 149 mg/dL (75-99)
[2020-08-04] MEDS: SODIUM CHLORIDE 0.9% 1,000 ML IV SCH (19:07)
[2020-08-04] MEDS ORDERED: 1: MVI, ADULT NO.4 WITH VIT K 10 ML, TRACE (CONC-1ML/DOSE) 1 ML, PARENTERAL ELECTROLYTES IV SCH ×7 (20:00)
[2020-08-04 20:27] LABS: Glucose,Whole Blood 105 mg/dL (75-99)
[2020-08-04 21:54] LABS: Glucose,Whole Blood 98 mg/dL (75-99)
--- NOTE | 2020-08-04 23:08 | PN ---
PROGRESS NOTE DATE OF SERVICE: 08/04/2020 REASON FOR FOLLOWUP VISIT: Leukocytosis. INTERVAL HISTORY: The patient is currently afebrile. The patient is hemodynamically stable. FiO2 is currently stable at 40%. No significant or diarrhea has been reported by the nursing staff. EXAMINATION: Blood pressure 108/45 with a pulse of 64, temperature 98. He is 100% on 40% FiO2. General description is an elderly male lying in bed in no distress. Respiratory system: Unlabored breathing with decreased intensity in breath sounds. No wheeze. Heart S1, S2. Regular rate and rhythm. ABDOMEN: Soft, no tenderness. LABS: Hemoglobin 8.4, white count 13.8, BUN of 97, creatinine 2.61. DIAGNOSTIC IMPRESSION AND PLAN: Patient with leukocytosis which is multifactorial in this patient who did have ischemic small-bowel, status post laparotomy and ileostomy also with concern for possible has been discontinued, less likely pneumonia. Patient is covered with good gram- negative coverage. Will add daptomycin for the gram-positive while waiting for the culture to finalize. Local wound care to the abdominal wound with wound VAC and we will reevaluate the patient tomorrow. MMODL / IJN: [id number] /
[2020-08-04 23:56] LABS: Glucose,Whole Blood 205 mg/dL (75-99)
[2020-08-05] MEDS: POTASSIUM CHLORIDE 10 MEQ in WATER FOR INJECTION 1 100ML.BAG IVPB SCH ×2 (00:14→02:00)
[2020-08-05] MEDS: PIPERACILLIN-TAZOBACTAM 3.375 GM in SODIUM CHLORIDE 0.9% 100 ML IVPB SCH ×3 (00:15→16:10)
[2020-08-05] MEDS: NOREPINEPHRINE 8 MG in SODIUM CHLORIDE 0.9% 250 ML IV SCH ×3 (00:16→22:46)
[2020-08-05 01:38] LABS: Glucose,Whole Blood 226 mg/dL (75-99)
[2020-08-05] MEDS: HEPARIN SODIUM,PORCINE 5,000 UNIT/ML 1 ML VIAL SQ SCH ×3 (01:41→16:11)
[2020-08-05 01:42] LABS: Glucose,Whole Blood 210 mg/dL (75-99)
[2020-08-05] MEDS: AMIODARONE 300 MG in DEXTROSE 5% IN WATER 250 ML IV SCH ×4 (03:47→11:50)
[2020-08-05 03:48] LABS: Glucose,Whole Blood 138 mg/dL (75-99)
[2020-08-05] MEDS: INSULIN REGULAR 100 UNIT in SODIUM CHLORIDE 0.9% 100 ML IV SCH ×2 (03:48→12:33)
[2020-08-05 04:16] LABS: Total Protein 4.2 g/dL (6.3-8.2)
[2020-08-05 04:18] LABS: Magnesium 2.2 mg/dL (1.6-2.3); Phosphorus 3.1 mg/dL (2.5-4.5); Total Bilirubin 0.9 mg/dL (0.2-1.3)
[2020-08-05 04:21] LABS: Anisocytosis Slight; Basophils % (A) 0 %; Eosinophils # (A) 0.1 k/uL (0-0.7); Eosinophils % (A) 0 %; HCT 24.2 % (39.0-53.0); HGB 7.7 gm/dL (13.0-17.5); Hypochromasia Moderate; Lymphocytes # (A) 0.6 k/uL (1.0-4.8); Lymphocytes % (A) 3 %; MCH 30.6 pg (25.0-35.0); MCHC 31.6 g/dL (31.0-37.0); MCV 96.7 fL (80.0-100.0); Macrocytosis Slight; Mean Platelet Volume 8.7; Monocytes # (A) 0.6 k/uL (0-1.0); Monocytes % (A) 3 %; Neutrophils # (A) 17.5 k/uL (1.3-7.7); Neutrophils % (A) 93 %; Platelet Count 101 k/uL (150-450); Poikilocytosis Slight; RBC 2.51 m/uL (4.30-5.90); RDW 18.8 % (11.5-15.5); WBC 18.8 k/uL (3.8-10.6)
[2020-08-05 04:43] LABS: ABG Base Excess -7.7 mmol/L; ABG HCO3 19 mmol/L (21-25); ABG Oxygen Saturation 98.9 % (94-97); ABG PCO2 39 mmHg (35-45); ABG PH 7.29 (7.35-7.45); ABG PO2 100 mmHg (83-108); ABG TCO2 20 mmol/L (19-24)
[2020-08-05 04:46] LABS: Allen Test Performed? no
[2020-08-05 05:09] LABS: Glucose,Whole Blood 166 mg/dL (75-99)
[2020-08-05 06:36] LABS: Glucose,Whole Blood 150 mg/dL (75-99)
[2020-08-05] MEDS: FORMOTEROL FUMARATE 20 MCG/2 ML NEBU INHALATION SCH ×2 (07:27→18:53)
[2020-08-05] MEDS: IPRATROPIUM-ALBUTEROL 3 ML NEB INHALATION SCH ×4 (07:27→18:53)
[2020-08-05] MEDS: BUDESONIDE 1 MG/2 ML NEBU INHALATION SCH ×2 (07:27→18:53)
--- NOTE | 2020-08-05 07:36 | XR ---
EXAMINATION TYPE: XR chest 1V portable DATE OF EXAM: 08/05/2020 COMPARISON: 08/04/2020 HISTORY: Tube placement TECHNIQUE: Single frontal view of the chest is obtained. FINDINGS: ET and NG tube stable. Postsurgical change and PICC line stable. Underlying COPD suspected . No sizable pneumothorax. Diffuse bilateral infiltrate and pleural effusion. IMPRESSION: 1. COPD with diffuse bilateral infiltrate and pleural effusion stable. Findings could be on the basis of pneumonia versus CHF.
[2020-08-05 08:03] LABS: Glucose,Whole Blood 143 mg/dL (75-99)
[2020-08-05] MEDS: LEVOTHYROXINE IVP 100 MCG/5 ML VIAL IV SCH (08:33)
[2020-08-05] MEDS: PANTOPRAZOLE 40 MG/10 ML VIAL IVP SCH ×2 (08:33→21:22)
[2020-08-05] MEDS: ASPIRIN 81 MG PO SCH (08:34)
[2020-08-05] MEDS: ANIDULAFUNGIN 100 MG in SODIUM CHLORIDE 0.9% 100 ML IVPB SCH (08:34)
[2020-08-05] MEDS: CHLORHEXIDINE GLUCONATE 15 ML CUP MUCOUS MEM SCH ×2 (08:34→21:22)
[2020-08-05 08:59] LABS: Glucose,Whole Blood 122 mg/dL (75-99)
[2020-08-05 10:05] LABS: Glucose,Whole Blood 134 mg/dL (75-99)
[2020-08-05] MEDS ORDERED: SODIUM BICARB 8.4% 50 ML SYR (1 MEQ/ML) IV STA (10:29)
[2020-08-05] MEDS: 1: MVI, ADULT NO.4 WITH VIT K 10 ML, TRACE (CONC-1ML/DOSE) 1 ML, PARENTERAL ELECTROLYTES IV SCH ×7 (10:46)
--- NOTE | 2020-08-05 10:58 | P.PN ---
Subjective Progress Note Date: 08/05/20 Principal diagnosis: Symptomatic triple-vessel coronary artery disease, mild left ventricular dysfunction. Past medical history significant for hypertension, hyperlipidemia, chronic obstructive pulmonary disease with preoperative FEV1 of 53% of predicted value, coronary artery disease with previous stenting to his right coronary artery in 2002, hypothyroid status post partial thyroidectomy, previous tobacco dependence quit smoking 20 years ago, type 2 diabetes mellitus with a preoperative hemoglobin A1c of 5.2%, and chronic kidney disease stage III with a baseline creatinine of 1.4-1.5, family history of premature coronary artery disease with a brother having a CABG at less than 50 years of age. POD #18 double coronary artery bypass grafting using the left internal mammary artery to left anterior descending coronary artery, a reverse greater saphenous vein graft from the aorta to the posterior descending coronary artery. Exclusion of the left atrial appendage using a 35 mm Atriclip, endoscopic harvesting of the right greater saphenous vein, graft flow measurement using the Cloud[employer] system, intraoperative transesophageal echocardiogram and epi-aortic scanning. Postoperative acute blood loss anemia, an expected outcome from hemodilution and cardiopulmonary bypass. Postoperative paroxysmal atrial fibrillation, unexpected. Postoperative pneumoperitoneum, unexpected. Acute on chronic kidney disease secondary to acute tubular necrosis. Pneumatosis of the small bowel. POD #12 ischemic bowel, small bowel resection. Prolonged mechanical ventilation, unexpected. Acute hypoxic respiratory failure requiring reintubation, unexpected. Postoperative hypotension requiring initiation of norepinephrine drip, unexpected. Acute abdomen, intraperitoneal hemorrhage. Postoperative day #3 exploratory laparotomy, washout of peritoneal cavity, ileostomy with small bowel resection. The patient was seen in follow-up today 08/05/2020 at his bedside in the inte nsive care unit. The patient remains sedated on propofol drip at 25 mcg/kg/m, tracheostomy remains midline and intact and is on mechanical ventilator support. Current mechanical ventilator settings are assist control 24, TV 500, FiO2 40%, PEEP of 5 and oxygen saturations are 99% on current mechanical ventilator settings. Bedside telemetry showing atrial fibrillation heart rate 84 bpm, he remains on amiodarone drip at 0.5 mg/m. NG tube is in place with low intermittent wall suction with 500 mL of dark green drainage in the last 12 hours. Very hypoactive bowel sounds are present. TPN infusing at 75 mL per hour. Sputum culture from 07/24/2020 showed Pseudomonas fluorescens/putida, sputum culture from 08/03/2020 pulmonary result shows many polymorphonuclear leukocytes, few epithelial cells and no organisms seen. He remains on daptomycin and Zosyn for antibiotic coverage managed by infectious disease. He also is on Eraxis. Lab results this morning show a WBC count which is trending down 18.8, hemoglobin 7.7, platelets 101, BUN 94, creatinine 2.49, AST 91 and ALT 213. Ileostomy with scant thin serosanguineous drainage with 10 mL output in the last 12 hours. T-max temperature in the last 24 hours is 98.9F. Norepinephrine drip is infusing at 6 mcg/m for blood pressure support. Objective - Vital Signs Vital signs: Vital Signs Temp 96.8 F L 08/05/20 04:00 Pulse 70 08/05/20 07:46 Resp 16 08/05/20 07:00 BP 105/55 08/05/20 05:00 Pulse Ox 100 08/05/20 07:00 Intake & Output 08/04/20 08/05/20 08/05/20 18:59 06:59 18:59 Intake Total 2949.562 1901.109 78 Output Total 1675 1525 575 Balance 1274.562 376.109 -497 Weight 107.4 kg 110.3 kg Intake: IV 2151 1061 78 Amiodarone 300 mg In 25 Dextrose 5% in Water 250 ml @ 0.5 MG/MIN 25 mls/hr IV .Q10H [facility] Rx#: [id number] Anidulafungin 200 mg In 200 Sodium Chloride 0.9% 200 ml @ 84 mls/hr IVPB ONCE ONE Rx#:[id number] DAPTOmycin 650 mg In 50 Sodium Chloride 0.9% 50 ml @ 100 mls/hr IVPB Q48H [facility] Rx#:[id number] Piperacillin-Tazobactam 3 200 .375 gm In Sodium Chloride 0.9% 100 ml @ 25 mls/hr IVPB Q8HR [facility] Rx# :[id number] Potassium Chloride 10 meq 400 In Water For Injection 1 100ml.bag @ 100 mls/hr IVPB Q1H [facility] Rx#: [id number] Potassium Chloride 20 meq 200 200 In Water For Injection 1 100ml.bag @ 50 mls/hr IVPB Q2H [facility] Rx#: [id number] Sodium Chloride 0.9% 1, 140 000 ml @ 20 mls/hr IV . Q24H [facility] Rx#:[id number] TPN 900 825 75 pressure bag 36 36 3 Intake, IV Titration 798.562 840.109 Amount Amiodarone 300 mg In 474.167 250 Dextrose 5% in Water 250 ml @ 0.5 MG/MIN 25 mls/hr IV .Q10H [facility] Rx#: [id number] Insulin Regular 100 unit 47.482 107.233 In Sodium Chloride 0.9% 100 ml @ Per Protocol IV .Q0M [facility] Rx#:[id number] Norepinephrine 8 mg In 72.847 185.153 Sodium Chloride 0.9% 250 ml @ 0.05 MCG/KG/MIN 10. 846 mls/hr IV .[id number] [facility] Rx#:[id number] propofoL 1,000 mg In 204.066 297.723 Empty Bag 1 bag @ Titrate IV .Q0M [facility] Rx#: [id number] Output: Gastric Drainage 400 500 Urine 1675 1125 75 Emesis 0 Other: Voiding Method Indwelling Catheter Indwelling Catheter ABP, PAP, CO, CI - Last Documented Arterial Blood Pressure 97/47 Pulmonary Artery Pressure 33/14 Cardiac Output 6.7 Cardiac Index 3.1 - Constitutional Constitutional Comment(s): Remains sedated on propofol drip at 25 mcg/kg/m. General appearance: Present: no acute distress, obese - EENT Eyes: Present: PERRLA, normal appearance. Absent: scleral icterus - Neck Details: Neck is supple, no JVD. - Respiratory Details: Lungs sounds essentially diminished throughout. No wheezes, rhonchi or crackles. Respirations are symmetrical and nonlabored with mechanical ventilation support. Tracheostomy is midline and intact, current mechanical ventilator settings are as follows, this is controlled 24, TV 500, FiO2 40%, PEEP of 5, current oxygen saturations 99%. ABGs this morning show a pH 7.29, pCO2 39, pO2 100, HCO3 19, oxygen saturation is 98.9, base excess -7.7. - Cardiovascular Details: Irregular rhythm and controlled rate. S1 and S2 present, negative for S3, gallop or murmur. Sternum is stable. Bedside telemetry showing atrial fibrillation heart rate 84 BPM. Heart hugger is in place. Knee-high ALPHONSO hose and sequential compression devices in place to his bilateral lower extremities. Right brachial decline in place and functioning, left radial arterial line in place and functioning. - Gastrointestinal Gastrointestinal Comment(s): Abdomen is soft, slightly distended. Hypoactive bowel sounds present in all 4 abdominal quadrants. NG tube in place to low intermittent wall suction, 500 mL of greenish colored drainage in the last 12 hours. Right lower quadrant ileostomy present with scant serosanguineous drainage, 10 mL output in the last 12 hours. TPN infusing per right brachial PICC line 75 mL per hour. - Genitourinary Genitourinary Comment(s): Villafana Catheter in place for accurate I's and O's. Draining clear danilo urine. 715 mL output in the last 8 hours. - Integumentary Integumentary Comment(s): Skin is warm and dry. No clubbing or cyanosis is present. Midline sternal incision is clean, dry and approximated. No drainage or redness is present. Right lower extremity EVH sites are clean, dry and approximated. No drainage or redness present. Midline abdominal incision with wound VAC in place, dressing is clean, dry and intact. Erythema to his right shoulder area, Silvadene cream in place. - Neurologic Neurologic Comment(s): Unable to assess at this time as the patient is sedated with propofol drip and remains on mechanical ventilator support. - Musculoskeletal Musculoskeletal Comment(s): Unable to assess at this time as the patient is sedated with propofol drip and remains on mechanical ventilator support. - Psychiatric Psychiatric Comment(s): Unable to assess at this time as the patient is sedated with propofol drip and remains on mechanical ventilator support. - Allied health notes Allied health notes reviewed: nursing - Labs CBC & Chem 7: 08/05/20 03:56 08/05/20 03:56 Labs: Abnormal Lab Results - Last 24 Hours (Table) 08/04/20 08/04/20 08/04/20 Range/Units 04:00 09:28 10:08 WBC (3.8-10.6) k/uL RBC (4.30-5.90) m/uL Hgb (13.0-17.5) gm/dL Hct (39.0-53.0) % RDW (11.5-15.5) % Plt Count (150-450) k/uL Neutrophils # (1.3-7.7) k/uL Lymphocytes # (1.0-4.8) k/uL ABG pH (7.35-7.45) ABG HCO3 (21-25) mmol/L ABG O2 Saturation (94-97) % Sodium (137-145) mmol/L Chloride (98-107) mmol/L Carbon Dioxide (22-30) mmol/L BUN (9-20) mg/dL Creatinine (0.66-1.25) mg/dL Glucose (74-99) mg/dL POC Glucose (mg/dL) 138 H 160 H (75-99) mg/dL Calcium (8.4-10.2) mg/dL AST (17-59) U/L ALT (4-49) U/L Total Protein (6.3-8.2) g/dL Albumin (3.5-5.0) g/dL Procalcitonin 1.42 H (0.02-0.09) ng/mL 08/04/20 08/04/20 08/04/20 Range/Units 10:17 11:59 13:16 WBC (3.8-10.6) k/uL RBC (4.30-5.90) m/uL Hgb (13.0-17.5) gm/dL Hct (39.0-53.0) % RDW (11.5-15.5) % Plt Count (150-450) k/uL Neutrophils # (1.3-7.7) k/uL Lymphocytes # (1.0-4.8) k/uL ABG pH 7.28 L (7.35-7.45) ABG HCO3 (21-25) mmol/L ABG O2 Saturation 99.1 H (94-97) % Sodium (137-145) mmol/L Chloride (98-107) mmol/L Carbon Dioxide (22-30) mmol/L BUN (9-20) mg/dL Creatinine (0.66-1.25) mg/dL Glucose (74-99) mg/dL POC Glucose (mg/dL) 127 H 179 H (75-99) mg/dL Calcium (8.4-10.2) mg/dL AST (17-59) U/L ALT (4-49) U/L Total Protein (6.3-8.2) g/dL Albumin (3.5-5.0) g/dL Procalcitonin (0.02-0.09) ng/mL 08/04/20 08/04/20 08/04/20 Range/Units 14:08 15:18 17:01 WBC (3.8-10.6) k/uL RBC (4.30-5.90) m/uL Hgb (13.0-17.5) gm/dL Hct (39.0-53.0) % RDW (11.5-15.5) % Plt Count (150-450) k/uL Neutrophils # (1.3-7.7) k/uL Lymphocytes # (1.0-4.8) k/uL ABG pH (7.35-7.45) ABG HCO3 (21-25) mmol/L ABG O2 Saturation (94-97) % Sodium (137-145) mmol/L Chloride (98-107) mmol/L Carbon Dioxide (22-30) mmol/L BUN (9-20) mg/dL Creatinine (0.66-1.25) mg/dL Glucose (74-99) mg/dL POC Glucose (mg/dL) 155 H 150 H 149 H (75-99) mg/dL Calcium (8.4-10.2) mg/dL AST (17-59) U/L ALT (4-49) U/L Total Protein (6.3-8.2) g/dL Albumin (3.5-5.0) g/dL Procalcitonin (0.02-0.09) ng/mL 08/04/20 08/04/20 08/04/20 Range/Units 17:55 19:02 20:26 WBC (3.8-10.6) k/uL RBC (4.30-5.90) m/uL Hgb (13.0-17.5) gm/dL Hct (39.0-53.0) % RDW (11.5-15.5) % Plt Count (150-450) k/uL Neutrophils # (1.3-7.7) k/uL Lymphocytes # (1.0-4.8) k/uL ABG pH (7.35-7.45) ABG HCO3 (21-25) mmol/L ABG O2 Saturation (94-97) % Sodium (137-145) mmol/L Chloride (98-107) mmol/L Carbon Dioxide (22-30) mmol/L BUN (9-20) mg/dL Creatinine (0.66-1.25) mg/dL Glucose (74-99) mg/dL POC Glucose (mg/dL) 161 H 149 H 105 H (75-99) mg/dL Calcium (8.4-10.2) mg/dL AST (17-59) U/L ALT (4-49) U/L Total Protein (6.3-8.2) g/dL Albumin (3.5-5.0) g/dL Procalcitonin (0.02-0.09) ng/mL 08/04/20 08/05/20 08/05/20 Range/Units 23:55 01:37 01:40 WBC (3.8-10.6) k/uL RBC (4.30-5.90) m/uL Hgb (13.0-17.5) gm/dL Hct (39.0-53.0) % RDW (11.5-15.5) % Plt Count (150-450) k/uL Neutrophils # (1.3-7.7) k/uL Lymphocytes # (1.0-4.8) k/uL ABG pH (7.35-7.45) ABG HCO3 (21-25) mmol/L ABG O2 Saturation (94-97) % Sodium (137-145) mmol/L Chloride (98-107) mmol/L Carbon Dioxide (22-30) mmol/L BUN (9-20) mg/dL Creatinine (0.66-1.25) mg/dL Glucose (74-99) mg/dL POC Glucose (mg/dL) 205 H 226 H 210 H (75-99) mg/dL Calcium (8.4-10.2) mg/dL AST (17-59) U/L ALT (4-49) U/L Total Protein (6.3-8.2) g/dL Albumin (3.5-5.0) g/dL Procalcitonin (0.02-0.09) ng/mL 08/05/20 08/05/20 08/05/20 Range/Units 03:46 03:56 03:56 WBC 18.8 H (3.8-10.6) k/uL RBC 2.51 L (4.30-5.90) m/uL Hgb 7.7 L (13.0-17.5) gm/dL Hct 24.2 L (39.0-53.0) % RDW 18.8 H (11.5-15.5) % Plt Count 101 L (150-450) k/uL Neutrophils # 17.5 H (1.3-7.7) k/uL Lymphocytes # 0.6 L (1.0-4.8) k/uL ABG pH (7.35-7.45) ABG HCO3 (21-25) mmol/L ABG O2 Saturation (94-97) % Sodium 132 L (137-145) mmol/L Chloride 108 H (98-107) mmol/L Carbon Dioxide 20 L (22-30) mmol/L BUN 94 H (9-20) mg/dL Creatinine 2.49 H (0.66-1.25) mg/dL Glucose 161 H (74-99) mg/dL POC Glucose (mg/dL) 138 H (75-99) mg/dL Calcium 8.0 L (8.4-10.2) mg/dL AST 91 H (17-59) U/L ALT 213 H (4-49) U/L Total Protein 4.2 L (6.3-8.2) g/dL Albumin 2.0 L (3.5-5.0) g/dL Procalcitonin (0.02-0.09) ng/mL 08/05/20 08/05/20 08/05/20 Range/Units 04:41 05:08 06:34 WBC (3.8-10.6) k/uL RBC (4.30-5.90) m/uL Hgb (13.0-17.5) gm/dL Hct (39.0-53.0) % RDW (11.5-15.5) % Plt Count (150-450) k/uL Neutrophils # (1.3-7.7) k/uL Lymphocytes # (1.0-4.8) k/uL ABG pH 7.29 L (7.35-7.45) ABG HCO3 19 L (21-25) mmol/L ABG O2 Saturation 98.9 H (94-97) % Sodium (137-145) mmol/L Chloride (98-107) mmol/L Carbon Dioxide (22-30) mmol/L BUN (9-20) mg/dL Creatinine (0.66-1.25) mg/dL Glucose (74-99) mg/dL POC Glucose (mg/dL) 166 H 150 H (75-99) mg/dL Calcium (8.4-10.2) mg/dL AST (17-59) U/L ALT (4-49) U/L Total Protein (6.3-8.2) g/dL Albumin (3.5-5.0) g/dL Procalcitonin (0.02-0.09) ng/mL 08/05/20 Range/Units 08:01 WBC (3.8-10.6) k/uL RBC (4.30-5.90) m/uL Hgb (13.0-17.5) gm/dL Hct (39.0-53.0) % RDW (11.5-15.5) % Plt Count (150-450) k/uL Neutrophils # (1.3-7.7) k/uL Lymphocytes # (1.0-4.8) k/uL ABG pH (7.35-7.45) ABG HCO3 (21-25) mmol/L ABG O2 Saturation (94-97) % Sodium (137-145) mmol/L Chloride (98-107) mmol/L Carbon Dioxide (22-30) mmol/L BUN (9-20) mg/dL Creatinine (0.66-1.25) mg/dL Glucose (74-99) mg/dL POC Glucose (mg/dL) 143 H (75-99) mg/dL Calcium (8.4-10.2) mg/dL AST (17-59) U/L ALT (4-49) U/L Total Protein (6.3-8.2) g/dL Albumin (3.5-5.0) g/dL Procalcitonin (0.02-0.09) ng/mL Microbiology - Last 24 Hours (Table) 08/02/20 21:48 Blood Culture - Preliminary Blood No Growth after 48 hours 12/16/20 19:25 Blood Culture - Preliminary Blood No Growth after 48 hours 08/03/20 16:20 Gram Stain - Preliminary Sputum Sputum Culture - Preliminary 08/03/20 12:20 Catheter Tip Culture - Preliminary Catheter Tip - Imaging and Cardiology Chest x-ray: report reviewed, image reviewed Assessment and Plan Assessment: 1. Heavily calcified symptomatic triple-vessel coronary artery disease, status post 2 vessel coronary artery bypass grafting surgery 2. History of coronary artery disease with stent placement to his right coronary artery in 2002 3. Mild left ventricular dysfunction 4. History of hypertension 5. History of hyperlipidemia 6. Hypothyroid status post partial thyroidectomy 7. Chronic obstructive pulmonary disease with preoperative FEV1 53% of predicted value 8. Remote history of tobacco dependence quit smoking 20 years ago 9. Acute on chronic kidney disease stage III with a baseline creatinine of 1.4- 1.5 10. Diabetes mellitus type 2 with a preoperative hemoglobin A1c 5.2% 11. Postoperative acute blood loss anemia, expected 12. Postoperative paroxysmal atrial fibrillation, unexpected 13. Remote history of pneumonia 14. Postoperative paroxysmal atrial fibrillation, unexpected, status post exclusion of the left atrial appendage 15. Pneumoperitoneum, unexpected 16. Pneumatosis of the small bowel, ischemic bowel, status post resection of the small bowel 17. Positive sputum culture for pseudomonas fluorescens 18. Postoperative prolonged mechanical ventilation 19. Acute hypoxic respiratory failure requiring reintubation, unexpected 20. Postoperative hypotension requiring initiation of norepinephrine drip, unexpected 21. Acute abdomen, intraperitoneal hemorrhage, S/P exploratory laparotomy, washout of peritoneal cavity, ileostomy with small bowel resection Plan: 1. Continue low dose aspirin. We will restart the metoprolol tartrate when tolerated and off the norepinephrine drip. 2. Continue IV amiodarone for atrial fibrillation prophylaxis. 3. Give one amp of sodium bicarbonate 1 now and 1 g of calcium gluconate IV piggyback 1 now. 4. Continue to monitor daily labs and chest x-rays. 5. Continue GI/DVT prophylaxis. 6. Pain control with current medication regimen. 7. Insulin management per Dr. Polk. 8. Continue TPN at 75 mL per hour. Keep the NG tube to low intermittent wall suction. 9. Nephrology following. Avoid nephrotoxic agents. Continue IV Lasix per their recommendations. 10. Strict accurate intake and output, daily weights. 11. Continue IV Zosyn, day 12, daptomycin, day 2, and Eraxis. Positive sputum culture for pseudomonas fluorescens on 07/24/2020. Sputum culture from 08/03/2020 showing Radha albicans. Blood culture results show no growth after 48 hours. Antibiotic management per Dr. Frederick's recommendations. 12. Patient's daughter Corinne updated on his care and status. 13. Continue Villafana catheter for accurate I's and O's. 14. Wean norepinephrine drip as tolerated. 15. Discontinue propofol drip and start Precedex drip. 16. More recommendations to follow based on patient's clinical course. Time with Patient: Greater than 30
[2020-08-05 11:10] LABS: Glucose,Whole Blood 133 mg/dL (75-99)
[2020-08-05] MEDS ORDERED: CALCIUM GLUCONATE 1 GM in SODIUM CHLORIDE 0.9% 100 ML IVPB ONE (11:15)
[2020-08-05] MEDS: DEXMEDETOMIDINE/0.9% NACL(PMX) 400 MCG in EMPTY BAG 1 BAG IV SCH ×2 (11:17→16:11)
--- NOTE | 2020-08-05 11:59 | P.PN ---
Subjective Progress Note Date: 08/05/20 Follow-up for acute kidney injury. Reintubated currently on ventilator with minimal settings. Objective - Vital Signs Vital signs: Vital Signs Temp 97.5 F L 08/05/20 08:00 Pulse 70 08/05/20 11:44 Resp 26 H 08/05/20 11:00 BP 86/49 08/05/20 10:30 Pulse Ox 99 08/05/20 11:00 Intake & Output 08/04/20 08/05/20 08/05/20 18:59 06:59 18:59 Intake Total 2949.562 4947.944 8791.803 Output Total 1675 1525 845 Balance 1274.562 376.109 280.803 Weight 107.4 kg 110.3 kg Intake: IV 2151 1061 602 Amiodarone 300 mg In 25 Dextrose 5% in Water 250 ml @ 0.5 MG/MIN 25 mls/hr IV .Q10H [facility] Rx#: [id number] Anidulafungin 200 mg In 200 130 Sodium Chloride 0.9% 200 ml @ 84 mls/hr IVPB ONCE ONE Rx#:[id number] DAPTOmycin 650 mg In 50 Sodium Chloride 0.9% 50 ml @ 100 mls/hr IVPB Q48H [facility] Rx#:[id number] Piperacillin-Tazobactam 3 200 100 .375 gm In Sodium Chloride 0.9% 100 ml @ 25 mls/hr IVPB Q8HR [facility] Rx# :[id number] Potassium Chloride 10 meq 400 In Water For Injection 1 100ml.bag @ 100 mls/hr IVPB Q1H [facility] Rx#: [id number] Potassium Chloride 20 meq 200 200 In Water For Injection 1 100ml.bag @ 50 mls/hr IVPB Q2H [facility] Rx#: [id number] Sodium Chloride 0.9% 1, 140 60 000 ml @ 20 mls/hr IV . Q24H [facility] Rx#:[id number] TPN 900 825 300 pressure bag 36 36 12 Intake, IV Titration 798.562 840.109 523.803 Amount Amiodarone 300 mg In 474.167 250 201.25 Dextrose 5% in Water 250 ml @ 0.5 MG/MIN 25 mls/hr IV .Q10H [facility] Rx#: [id number] Insulin Regular 100 unit 47.482 107.233 20.542 In Sodium Chloride 0.9% 100 ml @ Per Protocol IV .Q0M [facility] Rx#:[id number] Norepinephrine 8 mg In 72.847 185.153 219.010 Sodium Chloride 0.9% 250 ml @ 0.05 MCG/KG/MIN 10. 846 mls/hr IV .[id number] [facility] Rx#:[id number] propofoL 1,000 mg In 204.066 297.723 83.001 Empty Bag 1 bag @ Titrate IV .Q0M [facility] Rx#: [id number] Output: Gastric Drainage 400 500 Urine 1675 1125 345 Emesis 0 0 Other: Voiding Method Indwelling Catheter Indwelling Catheter ABP, PAP, CO, CI - Last Documented Arterial Blood Pressure 95/47 Pulmonary Artery Pressure 33/14 Cardiac Output 6.7 Cardiac Index 3.1 - Exam No acute distress S1-S2 heard Decreased breath sounds, oral intubation Edema Villafana - Labs CBC & Chem 7: 08/05/20 03:56 08/05/20 03:56 Labs: Abnormal Lab Results - Last 24 Hours (Table) 08/04/20 08/04/20 08/04/20 Range/Units 11:59 13:16 14:08 WBC (3.8-10.6) k/uL RBC (4.30-5.90) m/uL Hgb (13.0-17.5) gm/dL Hct (39.0-53.0) % RDW (11.5-15.5) % Plt Count (150-450) k/uL Neutrophils # (1.3-7.7) k/uL Lymphocytes # (1.0-4.8) k/uL ABG pH (7.35-7.45) ABG HCO3 (21-25) mmol/L ABG O2 Saturation (94-97) % Sodium (137-145) mmol/L Chloride (98-107) mmol/L Carbon Dioxide (22-30) mmol/L BUN (9-20) mg/dL Creatinine (0.66-1.25) mg/dL Glucose (74-99) mg/dL POC Glucose (mg/dL) 127 H 179 H 155 H (75-99) mg/dL Calcium (8.4-10.2) mg/dL AST (17-59) U/L ALT (4-49) U/L Total Protein (6.3-8.2) g/dL Albumin (3.5-5.0) g/dL 08/04/20 08/04/20 08/04/20 Range/Units 15:18 17:01 17:55 WBC (3.8-10.6) k/uL RBC (4.30-5.90) m/uL Hgb (13.0-17.5) gm/dL Hct (39.0-53.0) % RDW (11.5-15.5) % Plt Count (150-450) k/uL Neutrophils # (1.3-7.7) k/uL Lymphocytes # (1.0-4.8) k/uL ABG pH (7.35-7.45) ABG HCO3 (21-25) mmol/L ABG O2 Saturation (94-97) % Sodium (137-145) mmol/L Chloride (98-107) mmol/L Carbon Dioxide (22-30) mmol/L BUN (9-20) mg/dL Creatinine (0.66-1.25) mg/dL Glucose (74-99) mg/dL POC Glucose (mg/dL) 150 H 149 H 161 H (75-99) mg/dL Calcium (8.4-10.2) mg/dL AST (17-59) U/L ALT (4-49) U/L Total Protein (6.3-8.2) g/dL Albumin (3.5-5.0) g/dL 08/04/20 08/04/20 08/04/20 Range/Units 19:02 20:26 23:55 WBC (3.8-10.6) k/uL RBC (4.30-5.90) m/uL Hgb (13.0-17.5) gm/dL Hct (39.0-53.0) % RDW (11.5-15.5) % Plt Count (150-450) k/uL Neutrophils # (1.3-7.7) k/uL Lymphocytes # (1.0-4.8) k/uL ABG pH (7.35-7.45) ABG HCO3 (21-25) mmol/L ABG O2 Saturation (94-97) % Sodium (137-145) mmol/L Chloride (98-107) mmol/L Carbon Dioxide (22-30) mmol/L BUN (9-20) mg/dL Creatinine (0.66-1.25) mg/dL Glucose (74-99) mg/dL POC Glucose (mg/dL) 149 H 105 H 205 H (75-99) mg/dL Calcium (8.4-10.2) mg/dL AST (17-59) U/L ALT (4-49) U/L Total Protein (6.3-8.2) g/dL Albumin (3.5-5.0) g/dL 08/05/20 08/05/20 08/05/20 Range/Units 01:37 01:40 03:46 WBC (3.8-10.6) k/uL RBC (4.30-5.90) m/uL Hgb (13.0-17.5) gm/dL Hct (39.0-53.0) % RDW (11.5-15.5) % Plt Count (150-450) k/uL Neutrophils # (1.3-7.7) k/uL Lymphocytes # (1.0-4.8) k/uL ABG pH (7.35-7.45) ABG HCO3 (21-25) mmol/L ABG O2 Saturation (94-97) % Sodium (137-145) mmol/L Chloride (98-107) mmol/L Carbon Dioxide (22-30) mmol/L BUN (9-20) mg/dL Creatinine (0.66-1.25) mg/dL Glucose (74-99) mg/dL POC Glucose (mg/dL) 226 H 210 H 138 H (75-99) mg/dL Calcium (8.4-10.2) mg/dL AST (17-59) U/L ALT (4-49) U/L Total Protein (6.3-8.2) g/dL Albumin (3.5-5.0) g/dL 08/05/20 08/05/20 08/05/20 Range/Units 03:56 03:56 04:41 WBC 18.8 H (3.8-10.6) k/uL RBC 2.51 L (4.30-5.90) m/uL Hgb 7.7 L (13.0-17.5) gm/dL Hct 24.2 L (39.0-53.0) % RDW 18.8 H (11.5-15.5) % Plt Count 101 L (150-450) k/uL Neutrophils # 17.5 H (1.3-7.7) k/uL Lymphocytes # 0.6 L (1.0-4.8) k/uL ABG pH 7.29 L (7.35-7.45) ABG HCO3 19 L (21-25) mmol/L ABG O2 Saturation 98.9 H (94-97) % Sodium 132 L (137-145) mmol/L Chloride 108 H (98-107) mmol/L Carbon Dioxide 20 L (22-30) mmol/L BUN 94 H (9-20) mg/dL Creatinine 2.49 H (0.66-1.25) mg/dL Glucose 161 H (74-99) mg/dL POC Glucose (mg/dL) (75-99) mg/dL Calcium 8.0 L (8.4-10.2) mg/dL AST 91 H (17-59) U/L ALT 213 H (4-49) U/L Total Protein 4.2 L (6.3-8.2) g/dL Albumin 2.0 L (3.5-5.0) g/dL 08/05/20 08/05/20 08/05/20 Range/Units 05:08 06:34 08:01 WBC (3.8-10.6) k/uL RBC (4.30-5.90) m/uL Hgb (13.0-17.5) gm/dL Hct (39.0-53.0) % RDW (11.5-15.5) % Plt Count (150-450) k/uL Neutrophils # (1.3-7.7) k/uL Lymphocytes # (1.0-4.8) k/uL ABG pH (7.35-7.45) ABG HCO3 (21-25) mmol/L ABG O2 Saturation (94-97) % Sodium (137-145) mmol/L Chloride (98-107) mmol/L Carbon Dioxide (22-30) mmol/L BUN (9-20) mg/dL Creatinine (0.66-1.25) mg/dL Glucose (74-99) mg/dL POC Glucose (mg/dL) 166 H 150 H 143 H (75-99) mg/dL Calcium (8.4-10.2) mg/dL AST (17-59) U/L ALT (4-49) U/L Total Protein (6.3-8.2) g/dL Albumin (3.5-5.0) g/dL 08/05/20 08/05/20 08/05/20 Range/Units 08:58 10:03 11:08 WBC (3.8-10.6) k/uL RBC (4.30-5.90) m/uL Hgb (13.0-17.5) gm/dL Hct (39.0-53.0) % RDW (11.5-15.5) % Plt Count (150-450) k/uL Neutrophils # (1.3-7.7) k/uL Lymphocytes # (1.0-4.8) k/uL ABG pH (7.35-7.45) ABG HCO3 (21-25) mmol/L ABG O2 Saturation (94-97) % Sodium (137-145) mmol/L Chloride (98-107) mmol/L Carbon Dioxide (22-30) mmol/L BUN (9-20) mg/dL Creatinine (0.66-1.25) mg/dL Glucose (74-99) mg/dL POC Glucose (mg/dL) 122 H 134 H 133 H (75-99) mg/dL Calcium (8.4-10.2) mg/dL AST (17-59) U/L ALT (4-49) U/L Total Protein (6.3-8.2) g/dL Albumin (3.5-5.0) g/dL Microbiology - Last 24 Hours (Table) 08/03/20 16:20 Gram Stain - Final Sputum Sputum Culture - Final Radha albicans 08/02/20 21:48 Blood Culture - Preliminary Blood No Growth after 48 hours 08/02/20 19:25 Blood Culture - Preliminary Blood No Growth after 48 hours 08/03/20 12:20 Catheter Tip Culture - Preliminary Catheter Tip Assessment and Plan Assessment: #1 nonoliguric acute kidney injury secondary to hemodynamic instability leading to ischemic ATN. Baseline creatinine 1.0-1.2 MG per DL. #2 hypervolemic hyponatremia #3 status post CABG #4 bowel ischemia status post resection #5 volume overload #6 respiratory acidosis with metabolic alkalosis. Plan: #1 renal function stable. Monitor off diuretics today. #2 replace electrolytes. #3 avoid nephrotoxic agents and hypotensive episodes.
[2020-08-05 12:05] LABS: Glucose,Whole Blood 147 mg/dL (75-99)
[2020-08-05 13:50] LABS: Glucose,Whole Blood 159 mg/dL (75-99)
--- NOTE | 2020-08-05 13:52 | P.PN ---
Subjective Progress Note Date: 08/05/20 Principal diagnosis: Status post CABG, postoperative day # 18 79-year-old white male patient with past medical history of hypertension, hyperlipidemia, moderate to severe COPD with the baseline FEV1 of 56% of predicted who came in on 07/18/2020 for elective two-vessel bypass grafting with PABLO to LAD, and SVG to the PDA. He was seen in the intensive care unit following surgery, patient was successfully weaned and extubated from mechanical ventilator and under 6 hours following his OR exit, is currently awake and alert, sitting in the chair, he is currently on 2 L of oxygen, his pulse ox is 98%, hemodynamically he stable, blood pressure is 106/51, PA pressures 35/11, CVP is 8, no fever or chills, IV fluids including the 0.9 normal saline at a rate of 30 ML per hour, insulin is 4.5 units per hour, no vasoactive drips. Today's chest x-ray shows a pneumoperitoneum with lucency present underneath the right hemidiaphragm. He has left pleural and mediastinal chest tube, and there has been 500 mL of serosanguineous output from the left pleural and 350 mL from the mediastinal chest tube in the last 24 hours. Is having some mild discomfort under the right rib cage, but no acute distress, abdomen is distended but soft, he is hemodynamically stable, he is in sinus mechanism, no nausea vomiting or diarrhea. CT of the abdomen and pelvis is pending today's labs have been reviewed, showing white blood cell count of 11.9, hemoglobin of 9, sodium is 133, the rest of the electrolytes were within normal limits, B1 is 25 creatinine is 1.18 On 07/21/2020 patient seen in follow-up in the intensive care unit, today is postoperative day 3 status post three-vessel coronary artery bypass grafting, (patient became more short of breath, wheezy, patient has a known history of moderately severe COPD/emphysema, we started him on IV Solu-Medrol, and Pulmicort and Perforomist were added. This morning she remains on 3 L of oxygen his pulse ox is 94-95%, hemodynamically he stable, he just on plan and was seen and rated 20 ML per hour, insulin is a 2.5 units per hour, today's chest x-ray showing slight increased bibasilar atelectasis or infiltrates. He thinks the breathing treatments in the steroids have significantly helped, breathing easier, he is achieving 500-750 on his incentive spirometer, not able to bring up any sputum yet. he is currently sitting up in a chair, in no acute distress, his incisional pain is fairly well-controlled, patient had another episode of A. fib with RVR last night, he is back in sinus rhythm with a controlled rate this morning. He received a dose of Lasix this morning. Chest tubes have been discontinued. On 07/31/2020 patient seen in follow-up in the intensive care unit. He is postoperative day 12 status post three-vessel bypass grafting, and postoperative day #7 status post exploratory laparotomy and small bowel resection, he is awake and alert, he was extubated yesterday to a BiPAP support, this morning he remains on BiPAP, pressures of 10 and 5, and FiO2 of 35%, and his pulse ox is 100%, hemodynamically he stable, he is A. fib on a monitor with a rate of 98 BPM, he is currently on 9.9 normal seen at a rate of 10 ML per hour, insulin is at 2 units per hour, amiodarone at 0.5 mg per hour, heparin is at weight-based protocol, and TPN is a 75 ML per hour. Today's chest x-ray shows a stable portable chest, with bibasilar infiltrates greater on the right. She remains on Lasix at 40 mg every 12 hours, and he is negative fluid balance negative, at - 645 ML over the last 24 hours. No fever or chills, appears to be normally swollen, we will plus edema in lower extremities, his labs have been reviewed, showing white blood cell count 15.1, hemoglobin of 8, sodium of 132, potassium is 3.5, chloride is 100, his BUN is 63, and a creatinine is 1.94, calcitonin is trending down, down to 1.41 from 3.53. He remains on Zosyn or antibiotic coverage for evidence of Pseudomonas in his sputum culture. His NG tube in place to low intermittent suction, and there has been about 400 mL of bilious output in the last 24 hours, patient is passing gas but has not had any bowel movement yet. Surgical services are following. Reevaluated today on 08/01/20, patient remains in the ICU, presently on 5 L nasal cannula, was on BiPAP last night. Patient remains on TPN, amiodarone at 0.5 mg/m, he is also on insulin at 4 units per hour. Patient looks frail, he is postoperative day #13 status post CABG, and postoperative day #8 post exploratory laparotomy and small bowel resection. Patient was extubated on , intermittently on BiPAP especially at night. Patient is hemodynamically stable, not requiring any pressors. Remains on diuretics, and his chest x-ray today showed worsening bibasilar infiltrates and small effusions, remain empirically on antibiotics. Patient remains on Zosyn, and his sputum was positive for pseudomonas aeruginosa. WBC count is 17.7 hemoglobin is 7.9. Electrolytes are normal except for slightly low potassium of 3.3, renal profile is about the same as it has been in the last few days, BUN of 69 and creatinine of 1.89. Pro-calcitonin is coming down, it is 1.41 Reevaluated today on 08/02/20, over the last 24 hours, patient's clinical status has been deteriorating, he is developing hypotension requiring norepinephrine presently at 20 mcg/m, patient seems to be complaining of abdominal distention and tenderness, on physical examination his abdomen is quite tender. CBC showed leukocytosis with WBC count of 29.1. Hemoglobin is 6.8, there is positive bandemia noted on the differential. BUN is up to 91 creatinine 2.54, lactic acid is 1.4 this morning. ABG today showed a pO2 of 82 pCO2 of 51 pH of 7.29 patient has absent bowel sounds on examination, and his nasogastric tube continues to have significant drainage with bile colored drainage about 300 mL in the last 8 hours. Patient remains on TPN at 75 ML per hour, and he is also on amiodarone for atrial fibrillation. Rate seems to be controlled with amiodarone. Patient remains on Zosyn for antibiotics coverage. His sputum culture came back positive for Pseudomonas fluorescence. This was from 07/24/20. General surgery was notified about this condition and the patient will undergo expiratory laparotomy again today. This is supposed to be done as soon as possible. Patient was intubated in the ICU by JORGE, chest x-ray showed bibasilar atelectasis and small pleural effusions today. His ventilator sett ings at present are assist control rate of 24 volume is 500 FiO2 is 50% PEEP is 5. ABG post intubation showed a pO2 of 292 pCO2 of 52 pH of 7.28. Hence FiO2 was cut down to 50%. And The vent settings otherwise the same. Reevaluated today on 08/03/20, patient remains in the ICU, patient had another exploratory laparotomy yesterday, and he was found to have significant amount of blood in the peritoneal cavity. Ended up with expiratory laparotomy and ileostomy with small bowel resection. Patient is now postoperative day #17, double coronary artery bypass grafting postoperative day #10 small bowel resection postoperative day #1 expiratory laparotomy washout of peritoneal cavity and ileostomy. Patient was sent back to the ICU on mechanical ventilation, and he remains intubated and mechanically ventilated. Patient is sedated, he is requiring significant amount of norepinephrine at 17 mcg/m, he is on propofol at 50 mcg/kg/m amiodarone 0.5 mg/m patient is also on TPN and on insulin at 4 units per hour. His ventilator settings are assist control rate 24 tidal volume is 500 FiO2 is 40% PEEP is 5 ABG showed a pO2 of 86 pCO2 of 42 pH of 7.32. Considering his peritoneal bleeding, it was recommended by surgery not to use any high-dose Lovenox, patient is on only subcu heparin. Also recommended by surgery not to wean and I believe the patient is not amenable at this point, especially with him requiring norepinephrine and he is hemodynamically considered unstable. Patient is in atrial fibrillation rate of 97 but seems to be controlled. Urine output is about 50 mL per hour. Chest x- ray showed bilateral pleural effusions. Patient is receiving albumin and diuretics. Today we went ahead and removed his right femoral arterial line, and placed a new left radial arterial line. Reevaluated today on 08/04/20, patient remains in the ICU, intubated, sedated, patient was given a sedation holiday, however he became extremely agitated, and had to place him back on propofol. Patient is on assist control rate of 24 tidal volume is 500 FiO2 is 40% PEEP of 5. ABG showed a pO2 of 106 pCO2 of 40 pH of 7.32. Patient remains on multiple drips including norepinephrine at 0.15 mcg/kg/m, he is also on propofol at 40 mcg/kg/m, insulin at 8 units per hour, amiodarone at 0.5 mg/m. Patient is receiving TPN at 75 mL per hour. Antibiotics mix he is on Zosyn and on atelectasis. Patient is now postoperative day #17, double coronary artery bypass grafting. Postoperative day #11 small bowel resection postoperative day #2 expiratory laparotomy and ileostomy. Patient did not tolerate to be off sedation hence had to place him back on propofol, and I clearly felt that the patient is not ready for weaning. Chest x-ray continues to show small bilateral pleural effusions. Considering the patient is -1750 ML in the last 24 hours, and I would hold the Lasix. We will wean pressors. And will wean and possibly discontinue sedation if tolerates. Patient is not ready to be extubated at this point. Reevaluated today on 08/05/20, patient remains in the ICU, intubated and mechan ically ventilated. His ventilator settings are assist control rate of 24 tidal volume is 500 FiO2 is 40% and PEEP of 5. ABG showed a pO2 of 100 pCO2 of 39 pH of 7.29. Chest x-ray continues to show bilateral small effusions and atelectasis. Drips he is on amiodarone at 0.5 mg/m, norepinephrine at 0.08 micrograms per kilo per minute, propofol at 25 mcg/kg/m, insulin at 8 units per hour, he is also on TPN at 75 ML per hour, patient remains on daptomycin, ileostomy is not functional yet. Patient has wound VAC, and abdomen seems to be fairly benign on physical examination. Patient is noted to be a bit metabolically acidotic, his diuretics remains on hold, patient did have seems to be hypervolemic hyponatremia, and nonoliguric acute kidney injury. His a leukocytosis today is improving WBC count is down to 18.8. Hemoglobin is 7.7. Objective - Vital Signs Vital signs: Vital Signs Temp 97.5 F L 08/05/20 08:00 Pulse 70 08/05/20 11:44 Resp 26 H 08/05/20 11:00 BP 86/49 08/05/20 10:30 Pulse Ox 99 08/05/20 11:00 Intake & Output 08/04/20 08/05/20 08/05/20 18:59 06:59 18:59 Intake Total 2949.562 1607.224 0759.736 Output Total 1675 1525 845 Balance 1274.562 376.109 309.736 Weight 107.4 kg 110.3 kg Intake: IV 2151 1061 602 Amiodarone 300 mg In 25 Dextrose 5% in Water 250 ml @ 0.5 MG/MIN 25 mls/hr IV .Q10H [facility] Rx#: [id number] Anidulafungin 200 mg In 200 130 Sodium Chloride 0.9% 200 ml @ 84 mls/hr IVPB ONCE ONE Rx#:[id number] DAPTOmycin 650 mg In 50 Sodium Chloride 0.9% 50 ml @ 100 mls/hr IVPB Q48H [facility] Rx#:[id number] Piperacillin-Tazobactam 3 200 100 .375 gm In Sodium Chloride 0.9% 100 ml @ 25 mls/hr IVPB Q8HR [facility] Rx# :[id number] Potassium Chloride 10 meq 400 In Water For Injection 1 100ml.bag @ 100 mls/hr IVPB Q1H [facility] Rx#: [id number] Potassium Chloride 20 meq 200 200 In Water For Injection 1 100ml.bag @ 50 mls/hr IVPB Q2H [facility] Rx#: [id number] Sodium Chloride 0.9% 1, 140 60 000 ml @ 20 mls/hr IV . Q24H [facility] Rx#:[id number] TPN 900 825 300 pressure bag 36 36 12 Intake, IV Titration 798.562 840.109 552.736 Amount Amiodarone 300 mg In 474.167 250 201.25 Dextrose 5% in Water 250 ml @ 0.5 MG/MIN 25 mls/hr IV .Q10H [facility] Rx#: [id number] Insulin Regular 100 unit 47.482 107.233 49.475 In Sodium Chloride 0.9% 100 ml @ Per Protocol IV .Q0M [facility] Rx#:[id number] Norepinephrine 8 mg In 72.847 185.153 219.010 Sodium Chloride 0.9% 250 ml @ 0.05 MCG/KG/MIN 10. 846 mls/hr IV .[id number] [facility] Rx#:[id number] propofoL 1,000 mg In 204.066 297.723 83.001 Empty Bag 1 bag @ Titrate IV .Q0M [facility] Rx#: [id number] Output: Gastric Drainage 400 500 Urine 1675 1125 345 Emesis 0 0 Other: Voiding Method Indwelling Catheter Indwelling Catheter ABP, PAP, CO, CI - Last Documented Arterial Blood Pressure 95/47 Pulmonary Artery Pressure 33/14 Cardiac Output 6.7 Cardiac Index 3.1 - Exam GENERAL EXAM: 80-year-old intubated mechanically ventilated, sedated, in no distress.. HEAD: Normocephalic/atraumatic. The tracheal tube is intact ENT: PERRLA, EOMI, no icterus, no neck masses, no JVD, no stridor. CHEST: No chest wall deformity. Symmetrical expansion. Sternal incision is clean dry and intact, chest tube sites clean dry and intact LUNGS: Equal air entry fine crackles at the base. CVS: irregular rate and rhythm, normal S1 and S2, no gallops, no murmurs, no rubs ABDOMEN: Distended abdomen, tenderness on palpation, no bowel sounds. Abdominal incision is clean. Ileostomy is noted, nonfunctional yet, wound VAC is noted Dressing is clean. EXTREMITIES: Trace of edema no clubbing no cyanosis. Pulses bilaterally.. MUSCULOSKELETAL: Could not assess, patient was generally weak. SKIN: No rashes CENTRAL NERVOUS SYSTEM: Could not assess, but plan to hold sedation today and assess mental status on a daily basis - Labs CBC & Chem 7: 08/05/20 03:56 08/05/20 03:56 Labs: Abnormal Lab Results - Last 24 Hours (Table) 08/04/20 08/04/20 08/04/20 Range/Units 14:08 15:18 17:01 WBC (3.8-10.6) k/uL RBC (4.30-5.90) m/uL Hgb (13.0-17.5) gm/dL Hct (39.0-53.0) % RDW (11.5-15.5) % Plt Count (150-450) k/uL Neutrophils # (1.3-7.7) k/uL Lymphocytes # (1.0-4.8) k/uL ABG pH (7.35-7.45) ABG HCO3 (21-25) mmol/L ABG O2 Saturation (94-97) % Sodium (137-145) mmol/L Chloride (98-107) mmol/L Carbon Dioxide (22-30) mmol/L BUN (9-20) mg/dL Creatinine (0.66-1.25) mg/dL Glucose (74-99) mg/dL POC Glucose (mg/dL) 155 H 150 H 149 H (75-99) mg/dL Calcium (8.4-10.2) mg/dL AST (17-59) U/L ALT (4-49) U/L Total Protein (6.3-8.2) g/dL Albumin (3.5-5.0) g/dL 08/04/20 08/04/20 08/04/20 Range/Units 17:55 19:02 20:26 WBC (3.8-10.6) k/uL RBC (4.30-5.90) m/uL Hgb (13.0-17.5) gm/dL Hct (39.0-53.0) % RDW (11.5-15.5) % Plt Count (150-450) k/uL Neutrophils # (1.3-7.7) k/uL Lymphocytes # (1.0-4.8) k/uL ABG pH (7.35-7.45) ABG HCO3 (21-25) mmol/L ABG O2 Saturation (94-97) % Sodium (137-145) mmol/L Chloride (98-107) mmol/L Carbon Dioxide (22-30) mmol/L BUN (9-20) mg/dL Creatinine (0.66-1.25) mg/dL Glucose (74-99) mg/dL POC Glucose (mg/dL) 161 H 149 H 105 H (75-99) mg/dL Calcium (8.4-10.2) mg/dL AST (17-59) U/L ALT (4-49) U/L Total Protein (6.3-8.2) g/dL Albumin (3.5-5.0) g/dL 08/04/20 08/05/20 08/05/20 Range/Units 23:55 01:37 01:40 WBC (3.8-10.6) k/uL RBC (4.30-5.90) m/uL Hgb (13.0-17.5) gm/dL Hct (39.0-53.0) % RDW (11.5-15.5) % Plt Count (150-450) k/uL Neutrophils # (1.3-7.7) k/uL Lymphocytes # (1.0-4.8) k/uL ABG pH (7.35-7.45) ABG HCO3 (21-25) mmol/L ABG O2 Saturation (94-97) % Sodium (137-145) mmol/L Chloride (98-107) mmol/L Carbon Dioxide (22-30) mmol/L BUN (9-20) mg/dL Creatinine (0.66-1.25) mg/dL Glucose (74-99) mg/dL POC Glucose (mg/dL) 205 H 226 H 210 H (75-99) mg/dL Calcium (8.4-10.2) mg/dL AST (17-59) U/L ALT (4-49) U/L Total Protein (6.3-8.2) g/dL Albumin (3.5-5.0) g/dL 08/05/20 08/05/20 08/05/20 Range/Units 03:46 03:56 03:56 WBC 18.8 H (3.8-10.6) k/uL RBC 2.51 L (4.30-5.90) m/uL Hgb 7.7 L (13.0-17.5) gm/dL Hct 24.2 L (39.0-53.0) % RDW 18.8 H (11.5-15.5) % Plt Count 101 L (150-450) k/uL Neutrophils # 17.5 H (1.3-7.7) k/uL Lymphocytes # 0.6 L (1.0-4.8) k/uL ABG pH (7.35-7.45) ABG HCO3 (21-25) mmol/L ABG O2 Saturation (94-97) % Sodium 132 L (137-145) mmol/L Chloride 108 H (98-107) mmol/L Carbon Dioxide 20 L (22-30) mmol/L BUN 94 H (9-20) mg/dL Creatinine 2.49 H (0.66-1.25) mg/dL Glucose 161 H (74-99) mg/dL POC Glucose (mg/dL) 138 H (75-99) mg/dL Calcium 8.0 L (8.4-10.2) mg/dL AST 91 H (17-59) U/L ALT 213 H (4-49) U/L Total Protein 4.2 L (6.3-8.2) g/dL Albumin 2.0 L (3.5-5.0) g/dL 08/05/20 08/05/20 08/05/20 Range/Units 04:41 05:08 06:34 WBC (3.8-10.6) k/uL RBC (4.30-5.90) m/uL Hgb (13.0-17.5) gm/dL Hct (39.0-53.0) % RDW (11.5-15.5) % Plt Count (150-450) k/uL Neutrophils # (1.3-7.7) k/uL Lymphocytes # (1.0-4.8) k/uL ABG pH 7.29 L (7.35-7.45) ABG HCO3 19 L (21-25) mmol/L ABG O2 Saturation 98.9 H (94-97) % Sodium (137-145) mmol/L Chloride (98-107) mmol/L Carbon Dioxide (22-30) mmol/L BUN (9-20) mg/dL Creatinine (0.66-1.25) mg/dL Glucose (74-99) mg/dL POC Glucose (mg/dL) 166 H 150 H (75-99) mg/dL Calcium (8.4-10.2) mg/dL AST (17-59) U/L ALT (4-49) U/L Total Protein (6.3-8.2) g/dL Albumin (3.5-5.0) g/dL 08/05/20 08/05/20 08/05/20 Range/Units 08:01 08:58 10:03 WBC (3.8-10.6) k/uL RBC (4.30-5.90) m/uL Hgb (13.0-17.5) gm/dL Hct (39.0-53.0) % RDW (11.5-15.5) % Plt Count (150-450) k/uL Neutrophils # (1.3-7.7) k/uL Lymphocytes # (1.0-4.8) k/uL ABG pH (7.35-7.45) ABG HCO3 (21-25) mmol/L ABG O2 Saturation (94-97) % Sodium (137-145) mmol/L Chloride (98-107) mmol/L Carbon Dioxide (22-30) mmol/L BUN (9-20) mg/dL Creatinine (0.66-1.25) mg/dL Glucose (74-99) mg/dL POC Glucose (mg/dL) 143 H 122 H 134 H (75-99) mg/dL Calcium (8.4-10.2) mg/dL AST (17-59) U/L ALT (4-49) U/L Total Protein (6.3-8.2) g/dL Albumin (3.5-5.0) g/dL 08/05/20 08/05/20 Range/Units 11:08 12:03 WBC (3.8-10.6) k/uL RBC (4.30-5.90) m/uL Hgb (13.0-17.5) gm/dL Hct (39.0-53.0) % RDW (11.5-15.5) % Plt Count (150-450) k/uL Neutrophils # (1.3-7.7) k/uL Lymphocytes # (1.0-4.8) k/uL ABG pH (7.35-7.45) ABG HCO3 (21-25) mmol/L ABG O2 Saturation (94-97) % Sodium (137-145) mmol/L Chloride (98-107) mmol/L Carbon Dioxide (22-30) mmol/L BUN (9-20) mg/dL Creatinine (0.66-1.25) mg/dL Glucose (74-99) mg/dL POC Glucose (mg/dL) 133 H 147 H (75-99) mg/dL Calcium (8.4-10.2) mg/dL AST (17-59) U/L ALT (4-49) U/L Total Protein (6.3-8.2) g/dL Albumin (3.5-5.0) g/dL Microbiology - Last 24 Hours (Table) 08/03/20 16:20 Gram Stain - Final Sputum Sputum Culture - Final Radha albicans 08/02/20 21:48 Blood Culture - Preliminary Blood No Growth after 48 hours 08/02/20 19:25 Blood Culture - Preliminary Blood No Growth after 48 hours 08/03/20 12:20 Catheter Tip Culture - Preliminary Catheter Tip Assessment and Plan Assessment: #1. Symptomatic coronary artery disease, status post two-vessel coronary artery bypass grafting with PABLO to the LAD, SVG to the PDA, postoperative day #18 #2. Postoperative atrial fibrillation with rapid ventricular response requiring amiodarone and metoprolol, on subcu heparin. #3. Acute ischemic small bowel, pneumatosis, status post exploratory laparotomy and small bowel resection, on 07/24/2020, today is postoperative day number 12 #4. Acute hypoxic respiratory failure following bowel surgery, patient was extubated on 07/30/2022 BiPAP at night, and nasal cannula during the day. #5. Small atelectatic/pleural effusions involving both lung bases in addition to a small to moderate bilateral pleural effusion cannot rule out underlying infiltrate. Certainly secondary to Pseudomonas. #6. Evidence of Pseudomonas in the sputum culture, patient is covered with Zosyn for antibiotic coverage #7. History of coronary artery disease with previous stent placement #8. History of hypertension #9. History of hyperlipidemia #10. Acute on chronic kidney injury. #11. COPD moderate to severe with preop FEV1 of 53% of predicted #12. 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 Chronic kidney disease stage III at baseline #14. Diabetes mellitus type 2 #15. Postoperative acute blood loss anemia, expected outcome of open heart surgery #16. Postoperative paroxysmal A. fib, patient has had 2 episodes of A. fib with RVR in the postoperative period #17. Hypothyroidism status post partial thyroidectomy #18. Status post exploratory laparotomy and ileostomy postoperative day #3, reintubated since then. And remains intubated. #19 hypervolemic hyponatremia #20 acute on chronic kidney injury. Possible acute tubular necrosis. Recommendation: Continue hemodynamic support. However plan to titrate and possibly discontinue norepinephrine if possible. Continue ventilatory support. Not ready for weaning or extubation. Continue same ventilator settings. . Continue Zosyn. Continue to hold diuretics again today. Continue present supportive care measures Continue TPN. Continue low-dose aspirin and beta blockers. Continue amiodarone. Continue GI and DVT prophylaxis. Subcu heparin Prognosis remains extremely guarded. We'll continue to follow. Critical care time is over 30 minutes Time with Patient: Greater than 30
--- NOTE | 2020-08-05 15:04 | P.PN ---
Subjective Progress Note Date: 08/05/20 CHIEF COMPLAINT: Ischemic bowel HISTORY OF PRESENT ILLNESS: The patient is a 80-year-old male status post small bowel resection for ischemic bowel, 07/24/2020 and re-exploration 08/02/2020 due to intra-abdominal hemorrhage. He is on full ventilatory status. His hemoglobin has dropped. His WBC is down. ROS: No reports of nausea and vomiting. No fevers or chills. No new chest pain. No productive sputum PHYSICAL EXAM: VITAL SIGNS: Reviewed CONSTITUTIONAL: Well developed and in no acute distress. EYES: Conjuctivae without sclera icterus. Extraocular movements grossly intact. HEAD, EARS, NOSE, THROAT: Moist buccal mucosa. Head is atraumatic, normocephalic. RESPIRATORY: Non-labored respirations and equal bilateral excursions. CARDIOVASCULAR: 2+ radial pulses. ABDOMEN: Incisions intact. No peritonitis. MUSCULOSKELETAL: No clubbing. No cyanosis. SKIN: Good skin turgor. Well perfused. NEUROLOGIC: Cranial nerves II through XII grossly intact. No focal or lateralizing signs. PSYCH: Appropriate affect. Alert and oriented to person, place and time. CLINICAL LABS: White blood cell count down from 30.8 down to 18.8. Hemoglobin down from 8.4-7.7. Creatinine improved from 2.61 to 2.49. ASSESSMENT: 1. Ischemic colitis 2. Acute blood loss anemia 3. Intra-abdominal hermorrhage PLAN: 1. Continue full ventilatory management in intensive care unit. 2. Continue IV antibiotics. Objective - Vital Signs Vital signs: Vital Signs Temp 99.1 F 08/05/20 12:00 Pulse 65 08/05/20 15:00 Resp 29 H 08/05/20 15:00 BP 104/74 08/05/20 14:30 Pulse Ox 100 08/05/20 15:00 Intake & Output 08/04/20 08/05/20 08/05/20 18:59 06:59 18:59 Intake Total 2949.562 1375.674 6469.736 Output Total 1675 1525 1395 Balance 1274.562 376.109 349.736 Weight 107.4 kg 110.3 kg Intake: IV 2151 1061 1192 Amiodarone 300 mg In 25 Dextrose 5% in Water 250 ml @ 0.25 MG/MIN 12.5 mls /hr IV .Q20H [facility] Rx#: [id number] Anidulafungin 200 mg In 200 130 Sodium Chloride 0.9% 200 ml @ 84 mls/hr IVPB ONCE ONE Rx#:[id number] Calcium Gluconate 1 gm In 100 Sodium Chloride 0.9% 100 ml @ 100 mls/hr IVPB ONCE ONE Rx#:[id number] DAPTOmycin 650 mg In 50 Sodium Chloride 0.9% 50 ml @ 100 mls/hr IVPB Q48H [facility] Rx#:[id number] Piperacillin-Tazobactam 3 200 100 .375 gm In Sodium Chloride 0.9% 100 ml @ 25 mls/hr IVPB Q8HR [facility] Rx# :[id number] Potassium Chloride 10 meq 400 In Water For Injection 1 100ml.bag @ 100 mls/hr IVPB Q1H [facility] Rx#: [id number] Potassium Chloride 20 meq 200 200 In Water For Injection 1 100ml.bag @ 50 mls/hr IVPB Q2H [facility] Rx#: [id number] Sodium Chloride 0.9% 1, 140 160 000 ml @ 20 mls/hr IV . Q24H [facility] Rx#:[id number] TPN 900 825 675 pressure bag 36 36 27 Intake, IV Titration 798.562 840.109 552.736 Amount Amiodarone 300 mg In 474.167 250 201.25 Dextrose 5% in Water 250 ml @ 0.25 MG/MIN 12.5 mls /hr IV .Q20H [facility] Rx#: [id number] Insulin Regular 100 unit 47.482 107.233 49.475 In Sodium Chloride 0.9% 100 ml @ Per Protocol IV .Q0M [facility] Rx#:[id number] Norepinephrine 8 mg In 72.847 185.153 219.010 Sodium Chloride 0.9% 250 ml @ 0.05 MCG/KG/MIN 10. 846 mls/hr IV .[id number] [facility] Rx#:[id number] propofoL 1,000 mg In 204.066 297.723 83.001 Empty Bag 1 bag @ Titrate IV .Q0M [facility] Rx#: [id number] Output: Gastric Drainage 400 500 Urine 1675 1125 895 Emesis 0 0 Other: Voiding Method Indwelling Catheter Indwelling Catheter ABP, PAP, CO, CI - Last Documented Arterial Blood Pressure 111/59 Pulmonary Artery Pressure 33/14 Cardiac Output 6.7 Cardiac Index 3.1 - Labs CBC & Chem 7: 08/05/20 03:56 08/05/20 03:56 Labs: Abnormal Lab Results - Last 24 Hours (Table) 08/04/20 08/04/20 08/04/20 Range/Units 15:18 17:01 17:55 WBC (3.8-10.6) k/uL RBC (4.30-5.90) m/uL Hgb (13.0-17.5) gm/dL Hct (39.0-53.0) % RDW (11.5-15.5) % Plt Count (150-450) k/uL Neutrophils # (1.3-7.7) k/uL Lymphocytes # (1.0-4.8) k/uL ABG pH (7.35-7.45) ABG HCO3 (21-25) mmol/L ABG O2 Saturation (94-97) % Sodium (137-145) mmol/L Chloride (98-107) mmol/L Carbon Dioxide (22-30) mmol/L BUN (9-20) mg/dL Creatinine (0.66-1.25) mg/dL Glucose (74-99) mg/dL POC Glucose (mg/dL) 150 H 149 H 161 H (75-99) mg/dL Calcium (8.4-10.2) mg/dL AST (17-59) U/L ALT (4-49) U/L Total Protein (6.3-8.2) g/dL Albumin (3.5-5.0) g/dL 08/04/20 08/04/20 08/04/20 Range/Units 19:02 20:26 23:55 WBC (3.8-10.6) k/uL RBC (4.30-5.90) m/uL Hgb (13.0-17.5) gm/dL Hct (39.0-53.0) % RDW (11.5-15.5) % Plt Count (150-450) k/uL Neutrophils # (1.3-7.7) k/uL Lymphocytes # (1.0-4.8) k/uL ABG pH (7.35-7.45) ABG HCO3 (21-25) mmol/L ABG O2 Saturation (94-97) % Sodium (137-145) mmol/L Chloride (98-107) mmol/L Carbon Dioxide (22-30) mmol/L BUN (9-20) mg/dL Creatinine (0.66-1.25) mg/dL Glucose (74-99) mg/dL POC Glucose (mg/dL) 149 H 105 H 205 H (75-99) mg/dL Calcium (8.4-10.2) mg/dL AST (17-59) U/L ALT (4-49) U/L Total Protein (6.3-8.2) g/dL Albumin (3.5-5.0) g/dL 08/05/20 08/05/20 08/05/20 Range/Units 01:37 01:40 03:46 WBC (3.8-10.6) k/uL RBC (4.30-5.90) m/uL Hgb (13.0-17.5) gm/dL Hct (39.0-53.0) % RDW (11.5-15.5) % Plt Count (150-450) k/uL Neutrophils # (1.3-7.7) k/uL Lymphocytes # (1.0-4.8) k/uL ABG pH (7.35-7.45) ABG HCO3 (21-25) mmol/L ABG O2 Saturation (94-97) % Sodium (137-145) mmol/L Chloride (98-107) mmol/L Carbon Dioxide (22-30) mmol/L BUN (9-20) mg/dL Creatinine (0.66-1.25) mg/dL Glucose (74-99) mg/dL POC Glucose (mg/dL) 226 H 210 H 138 H (75-99) mg/dL Calcium (8.4-10.2) mg/dL AST (17-59) U/L ALT (4-49) U/L Total Protein (6.3-8.2) g/dL Albumin (3.5-5.0) g/dL 08/05/20 08/05/20 08/05/20 Range/Units 03:56 03:56 04:41 WBC 18.8 H (3.8-10.6) k/uL RBC 2.51 L (4.30-5.90) m/uL Hgb 7.7 L (13.0-17.5) gm/dL Hct 24.2 L (39.0-53.0) % RDW 18.8 H (11.5-15.5) % Plt Count 101 L (150-450) k/uL Neutrophils # 17.5 H (1.3-7.7) k/uL Lymphocytes # 0.6 L (1.0-4.8) k/uL ABG pH 7.29 L (7.35-7.45) ABG HCO3 19 L (21-25) mmol/L ABG O2 Saturation 98.9 H (94-97) % Sodium 132 L (137-145) mmol/L Chloride 108 H (98-107) mmol/L Carbon Dioxide 20 L (22-30) mmol/L BUN 94 H (9-20) mg/dL Creatinine 2.49 H (0.66-1.25) mg/dL Glucose 161 H (74-99) mg/dL POC Glucose (mg/dL) (75-99) mg/dL Calcium 8.0 L (8.4-10.2) mg/dL AST 91 H (17-59) U/L ALT 213 H (4-49) U/L Total Protein 4.2 L (6.3-8.2) g/dL Albumin 2.0 L (3.5-5.0) g/dL 08/05/20 08/05/20 08/05/20 Range/Units 05:08 06:34 08:01 WBC (3.8-10.6) k/uL RBC (4.30-5.90) m/uL Hgb (13.0-17.5) gm/dL Hct (39.0-53.0) % RDW (11.5-15.5) % Plt Count (150-450) k/uL Neutrophils # (1.3-7.7) k/uL Lymphocytes # (1.0-4.8) k/uL ABG pH (7.35-7.45) ABG HCO3 (21-25) mmol/L ABG O2 Saturation (94-97) % Sodium (137-145) mmol/L Chloride (98-107) mmol/L Carbon Dioxide (22-30) mmol/L BUN (9-20) mg/dL Creatinine (0.66-1.25) mg/dL Glucose (74-99) mg/dL POC Glucose (mg/dL) 166 H 150 H 143 H (75-99) mg/dL Calcium (8.4-10.2) mg/dL AST (17-59) U/L ALT (4-49) U/L Total Protein (6.3-8.2) g/dL Albumin (3.5-5.0) g/dL 08/05/20 08/05/20 08/05/20 Range/Units 08:58 10:03 11:08 WBC (3.8-10.6) k/uL RBC (4.30-5.90) m/uL Hgb (13.0-17.5) gm/dL Hct (39.0-53.0) % RDW (11.5-15.5) % Plt Count (150-450) k/uL Neutrophils # (1.3-7.7) k/uL Lymphocytes # (1.0-4.8) k/uL ABG pH (7.35-7.45) ABG HCO3 (21-25) mmol/L ABG O2 Saturation (94-97) % Sodium (137-145) mmol/L Chloride (98-107) mmol/L Carbon Dioxide (22-30) mmol/L BUN (9-20) mg/dL Creatinine (0.66-1.25) mg/dL Glucose (74-99) mg/dL POC Glucose (mg/dL) 122 H 134 H 133 H (75-99) mg/dL Calcium (8.4-10.2) mg/dL AST (17-59) U/L ALT (4-49) U/L Total Protein (6.3-8.2) g/dL Albumin (3.5-5.0) g/dL 08/05/20 08/05/20 Range/Units 12:03 13:48 WBC (3.8-10.6) k/uL RBC (4.30-5.90) m/uL Hgb (13.0-17.5) gm/dL Hct (39.0-53.0) % RDW (11.5-15.5) % Plt Count (150-450) k/uL Neutrophils # (1.3-7.7) k/uL Lymphocytes # (1.0-4.8) k/uL ABG pH (7.35-7.45) ABG HCO3 (21-25) mmol/L ABG O2 Saturation (94-97) % Sodium (137-145) mmol/L Chloride (98-107) mmol/L Carbon Dioxide (22-30) mmol/L BUN (9-20) mg/dL Creatinine (0.66-1.25) mg/dL Glucose (74-99) mg/dL POC Glucose (mg/dL) 147 H 159 H (75-99) mg/dL Calcium (8.4-10.2) mg/dL AST (17-59) U/L ALT (4-49) U/L Total Protein (6.3-8.2) g/dL Albumin (3.5-5.0) g/dL Microbiology - Last 24 Hours (Table) 08/03/20 16:20 Gram Stain - Final Sputum Sputum Culture - Final Radha albicans 08/02/20 21:48 Blood Culture - Preliminary Blood No Growth after 48 hours 08/02/20 19:25 Blood Culture - Preliminary Blood No Growth after 48 hours Assessment and Plan (1) Intra abdominal hemorrhage Current Visit: Yes Status: Acute Code(s): R58 - HEMORRHAGE, NOT ELSEWHERE CLASSIFIED SNOMED Code(s): 644940161 (2) Ischemic colitis, enteritis, or enterocolitis Current Visit: Yes Status: Acute Code(s): K55.9 - VASCULAR DISORDER OF INTESTINE, UNSPECIFIED SNOMED Code(s): 30218307
[2020-08-05 15:14] LABS: Glucose,Whole Blood 165 mg/dL (75-99)
[2020-08-05 16:18] LABS: Glucose,Whole Blood 141 mg/dL (75-99)
[2020-08-05] MEDS: SODIUM CHLORIDE 0.9% 1,000 ML IV SCH (16:19)
[2020-08-05] MEDS ORDERED: MEROPENEM 1 GM in SODIUM CHLORIDE 0.9% 100 ML IVPB ONE (16:30)
--- NOTE | 2020-08-05 17:09 | P.PN ---
Subjective Progress Note Date: 08/05/20 Principal diagnosis: CABG Patient remains on mechanical ventilation he continues to be on the following drips: amiodarone at 0.5 mg/m, norepinephrine at 0.08 micrograms per kilo per minute, propofol at 25 mcg/kg/m, insulin at 8 units per hour, TPN at 75 ML per hour. His bowel doesn't seem to be active again and the ileostomy is not functional yet. Patient has wound VAC on the abdomen. Objective - Vital Signs Vital signs: Vital Signs Temp 98.1 F 08/05/20 16:00 Pulse 61 08/05/20 16:30 Resp 30 H 08/05/20 16:30 BP 114/66 08/05/20 16:30 Pulse Ox 98 08/05/20 16:30 Intake & Output 08/04/20 08/05/20 08/05/20 18:59 06:59 18:59 Intake Total 2949.562 4403.803 2091.613 Output Total 1675 1525 1395 Balance 1274.562 376.109 768.613 Weight 107.4 kg 110.3 kg Intake: IV 2151 1061 1490 Amiodarone 300 mg In 25 Dextrose 5% in Water 250 ml @ 0.25 MG/MIN 12.5 mls /hr IV .Q20H [facility] Rx#: [id number] Anidulafungin 200 mg In 200 130 Sodium Chloride 0.9% 200 ml @ 84 mls/hr IVPB ONCE ONE Rx#:[id number] Calcium Gluconate 1 gm In 100 Sodium Chloride 0.9% 100 ml @ 100 mls/hr IVPB ONCE ONE Rx#:[id number] DAPTOmycin 650 mg In 50 Sodium Chloride 0.9% 50 ml @ 100 mls/hr IVPB Q48H [facility] Rx#:[id number] Meropenem 1 gm In Sodium 100 Chloride 0.9% 100 ml @ 200 mls/hr IVPB ONCE ONE Rx#:[id number] Piperacillin-Tazobactam 3 200 200 .375 gm In Sodium Chloride 0.9% 100 ml @ 25 mls/hr IVPB Q8HR [facility] Rx# :[id number] Potassium Chloride 10 meq 400 In Water For Injection 1 100ml.bag @ 100 mls/hr IVPB Q1H [facility] Rx#: [id number] Potassium Chloride 20 meq 200 200 In Water For Injection 1 100ml.bag @ 50 mls/hr IVPB Q2H [facility] Rx#: [id number] Sodium Chloride 0.9% 1, 140 180 000 ml @ 20 mls/hr IV . Q24H [facility] Rx#:[id number] TPN 900 825 750 pressure bag 36 36 30 Intake, IV Titration 798.562 840.109 673.613 Amount Amiodarone 300 mg In 474.167 250 201.25 Dextrose 5% in Water 250 ml @ 0.25 MG/MIN 12.5 mls /hr IV .Q20H [facility] Rx#: [id number] Dexmedetomidine/0.9% NaCl 87.277 (Pmx) 400 mcg In Empty Bag 1 bag @ Titrate IV . Q0M [facility] Rx#:[id number] Insulin Regular 100 unit 47.482 107.233 83.075 In Sodium Chloride 0.9% 100 ml @ Per Protocol IV .Q0M [facility] Rx#:[id number] Norepinephrine 8 mg In 72.847 185.153 219.010 Sodium Chloride 0.9% 250 ml @ 0.05 MCG/KG/MIN 10. 846 mls/hr IV .[id number] [facility] Rx#:[id number] propofoL 1,000 mg In 204.066 297.723 83.001 Empty Bag 1 bag @ Titrate IV .Q0M [facility] Rx#: [id number] Output: Gastric Drainage 400 500 Urine 1675 1125 895 Emesis 0 0 Other: Voiding Method Indwelling Catheter Indwelling Catheter Indwelling Catheter ABP, PAP, CO, CI - Last Documented Arterial Blood Pressure 106/52 Pulmonary Artery Pressure 33/14 Cardiac Output 6.7 Cardiac Index 3.1 - Exam General: [toxic], [no distress], [appears at stated age] On mechanical ventilation. Derm: [warm], [dry] Head: [atraumatic], [normocephalic], [symmetric] Eyes: [EOMI], [no lid lag], [anicteric sclera] Mouth: [no lip lesion], [mucus membranes moist] Cardiovascular: [S1S2 reg], [no murmur], [positive posterior tibial pulse bilateral], Lungs: [CTA bilateral], [no rhonchi, no rales] , [no accessory muscle use] Abdominal: [soft], [ nontender to palpation], [no guarding], [no appreciable organomegaly] Ext: [no gross muscle atrophy], [no edema], [no contractures] Neuro: [ CN II-XI grossly intact], [no focal neuro deficits] Psych: Sedated - Labs CBC & Chem 7: 08/05/20 03:56 08/05/20 03:56 Labs: Abnormal Lab Results - Last 24 Hours (Table) 08/04/20 08/04/20 08/04/20 Range/Units 17:01 17:55 19:02 WBC (3.8-10.6) k/uL RBC (4.30-5.90) m/uL Hgb (13.0-17.5) gm/dL Hct (39.0-53.0) % RDW (11.5-15.5) % Plt Count (150-450) k/uL Neutrophils # (1.3-7.7) k/uL Lymphocytes # (1.0-4.8) k/uL ABG pH (7.35-7.45) ABG HCO3 (21-25) mmol/L ABG O2 Saturation (94-97) % Sodium (137-145) mmol/L Chloride (98-107) mmol/L Carbon Dioxide (22-30) mmol/L BUN (9-20) mg/dL Creatinine (0.66-1.25) mg/dL Glucose (74-99) mg/dL POC Glucose (mg/dL) 149 H 161 H 149 H (75-99) mg/dL Calcium (8.4-10.2) mg/dL AST (17-59) U/L ALT (4-49) U/L Total Protein (6.3-8.2) g/dL Albumin (3.5-5.0) g/dL 08/04/20 08/04/20 08/05/20 Range/Units 20:26 23:55 01:37 WBC (3.8-10.6) k/uL RBC (4.30-5.90) m/uL Hgb (13.0-17.5) gm/dL Hct (39.0-53.0) % RDW (11.5-15.5) % Plt Count (150-450) k/uL Neutrophils # (1.3-7.7) k/uL Lymphocytes # (1.0-4.8) k/uL ABG pH (7.35-7.45) ABG HCO3 (21-25) mmol/L ABG O2 Saturation (94-97) % Sodium (137-145) mmol/L Chloride (98-107) mmol/L Carbon Dioxide (22-30) mmol/L BUN (9-20) mg/dL Creatinine (0.66-1.25) mg/dL Glucose (74-99) mg/dL POC Glucose (mg/dL) 105 H 205 H 226 H (75-99) mg/dL Calcium (8.4-10.2) mg/dL AST (17-59) U/L ALT (4-49) U/L Total Protein (6.3-8.2) g/dL Albumin (3.5-5.0) g/dL 08/05/20 08/05/20 08/05/20 Range/Units 01:40 03:46 03:56 WBC (3.8-10.6) k/uL RBC (4.30-5.90) m/uL Hgb (13.0-17.5) gm/dL Hct (39.0-53.0) % RDW (11.5-15.5) % Plt Count (150-450) k/uL Neutrophils # (1.3-7.7) k/uL Lymphocytes # (1.0-4.8) k/uL ABG pH (7.35-7.45) ABG HCO3 (21-25) mmol/L ABG O2 Saturation (94-97) % Sodium 132 L (137-145) mmol/L Chloride 108 H (98-107) mmol/L Carbon Dioxide 20 L (22-30) mmol/L BUN 94 H (9-20) mg/dL Creatinine 2.49 H (0.66-1.25) mg/dL Glucose 161 H (74-99) mg/dL POC Glucose (mg/dL) 210 H 138 H (75-99) mg/dL Calcium 8.0 L (8.4-10.2) mg/dL AST 91 H (17-59) U/L ALT 213 H (4-49) U/L Total Protein 4.2 L (6.3-8.2) g/dL Albumin 2.0 L (3.5-5.0) g/dL 08/05/20 08/05/20 08/05/20 Range/Units 03:56 04:41 05:08 WBC 18.8 H (3.8-10.6) k/uL RBC 2.51 L (4.30-5.90) m/uL Hgb 7.7 L (13.0-17.5) gm/dL Hct 24.2 L (39.0-53.0) % RDW 18.8 H (11.5-15.5) % Plt Count 101 L (150-450) k/uL Neutrophils # 17.5 H (1.3-7.7) k/uL Lymphocytes # 0.6 L (1.0-4.8) k/uL ABG pH 7.29 L (7.35-7.45) ABG HCO3 19 L (21-25) mmol/L ABG O2 Saturation 98.9 H (94-97) % Sodium (137-145) mmol/L Chloride (98-107) mmol/L Carbon Dioxide (22-30) mmol/L BUN (9-20) mg/dL Creatinine (0.66-1.25) mg/dL Glucose (74-99) mg/dL POC Glucose (mg/dL) 166 H (75-99) mg/dL Calcium (8.4-10.2) mg/dL AST (17-59) U/L ALT (4-49) U/L Total Protein (6.3-8.2) g/dL Albumin (3.5-5.0) g/dL 08/05/20 08/05/20 08/05/20 Range/Units 06:34 08:01 08:58 WBC (3.8-10.6) k/uL RBC (4.30-5.90) m/uL Hgb (13.0-17.5) gm/dL Hct (39.0-53.0) % RDW (11.5-15.5) % Plt Count (150-450) k/uL Neutrophils # (1.3-7.7) k/uL Lymphocytes # (1.0-4.8) k/uL ABG pH (7.35-7.45) ABG HCO3 (21-25) mmol/L ABG O2 Saturation (94-97) % Sodium (137-145) mmol/L Chloride (98-107) mmol/L Carbon Dioxide (22-30) mmol/L BUN (9-20) mg/dL Creatinine (0.66-1.25) mg/dL Glucose (74-99) mg/dL POC Glucose (mg/dL) 150 H 143 H 122 H (75-99) mg/dL Calcium (8.4-10.2) mg/dL AST (17-59) U/L ALT (4-49) U/L Total Protein (6.3-8.2) g/dL Albumin (3.5-5.0) g/dL 08/05/20 08/05/20 08/05/20 Range/Units 10:03 11:08 12:03 WBC (3.8-10.6) k/uL RBC (4.30-5.90) m/uL Hgb (13.0-17.5) gm/dL Hct (39.0-53.0) % RDW (11.5-15.5) % Plt Count (150-450) k/uL Neutrophils # (1.3-7.7) k/uL Lymphocytes # (1.0-4.8) k/uL ABG pH (7.35-7.45) ABG HCO3 (21-25) mmol/L ABG O2 Saturation (94-97) % Sodium (137-145) mmol/L Chloride (98-107) mmol/L Carbon Dioxide (22-30) mmol/L BUN (9-20) mg/dL Creatinine (0.66-1.25) mg/dL Glucose (74-99) mg/dL POC Glucose (mg/dL) 134 H 133 H 147 H (75-99) mg/dL Calcium (8.4-10.2) mg/dL AST (17-59) U/L ALT (4-49) U/L Total Protein (6.3-8.2) g/dL Albumin (3.5-5.0) g/dL 08/05/20 08/05/20 08/05/20 Range/Units 13:48 15:02 16:17 WBC (3.8-10.6) k/uL RBC (4.30-5.90) m/uL Hgb (13.0-17.5) gm/dL Hct (39.0-53.0) % RDW (11.5-15.5) % Plt Count (150-450) k/uL Neutrophils # (1.3-7.7) k/uL Lymphocytes # (1.0-4.8) k/uL ABG pH (7.35-7.45) ABG HCO3 (21-25) mmol/L ABG O2 Saturation (94-97) % Sodium (137-145) mmol/L Chloride (98-107) mmol/L Carbon Dioxide (22-30) mmol/L BUN (9-20) mg/dL Creatinine (0.66-1.25) mg/dL Glucose (74-99) mg/dL POC Glucose (mg/dL) 159 H 165 H 141 H (75-99) mg/dL Calcium (8.4-10.2) mg/dL AST (17-59) U/L ALT (4-49) U/L Total Protein (6.3-8.2) g/dL Albumin (3.5-5.0) g/dL Microbiology - Last 24 Hours (Table) 08/03/20 16:20 Gram Stain - Final Sputum Sputum Culture - Final Radha albicans 08/02/20 21:48 Blood Culture - Preliminary Blood No Growth after 48 hours 08/02/20 19:25 Blood Culture - Preliminary Blood No Growth after 48 hours Assessment and Plan Plan: Coronary artery disease -Status post coronary artery bypass grafting -Cardiothoracic and cardiology following -On aspirin DM 2 - Currently on insulin drip - A1C from 06/21/2020 5.2 Small Bowel Ischemia with subseqent Intraperitoneal hemorrhage - s/p second bowel resection with peritoneal washing POD 3, now with ileostomy - King cultures repeated, will follow Hypotension likely secondary to septic shock as consequence from bowel ischemia. Grew Pseudomonas and Radha in the sputum. Was on zosyn which was changed to meropenem by ID, anidulafungin and daptomycin were added by ID due to worsening leukocytosis and hypotension. On norepi currently A-fib with RVR On amio, eliquis d/melody, only on subcutaneous heparin now. CONNOR on CKD stage III Baseline cr 1.4-1.5 Likely cardiorenal syndrome, patient received contrast earlier in the admission. Holding lasix, which was given earlier. Nephrology is following COPD with acute exacerbation - On DuoNeb scheduled Hypothyroidism status post partial thyroidectomy - synthroid Morbid obesity with BMI 30.5 -Outpatient structured weight loss Prognosis is poor
[2020-08-05 17:21] LABS: Glucose,Whole Blood 147 mg/dL (75-99)
[2020-08-05 18:08] LABS: Glucose,Whole Blood 127 mg/dL (75-99)
[2020-08-05 19:01] LABS: Glucose,Whole Blood 138 mg/dL (75-99)
[2020-08-05 20:36] LABS: Glucose,Whole Blood 120 mg/dL (75-99)
[2020-08-05 21:34] LABS: Glucose,Whole Blood 116 mg/dL (75-99)
--- NOTE | 2020-08-05 22:06 | PN ---
PROGRESS NOTE DATE OF SERVICE: 08/05/2020 REASON FOR FOLLOWUP: Sepsis. INTERVAL HISTORY: Patient is currently afebrile. The patient did require starting of his Levophed because the patient blood pressure dropping down. The patient FiO2 is currently stable. No significant purulent secretions through the ET or any diarrhea reported. PHYSICAL EXAMINATION: Blood pressure is 117/59 with a pulse of 59. Temperature 98.1. He is 100% on 40% FiO2. General description is an elderly male lying in bed in no distress. Respiratory system: Unlabored breathing, decreased breath sounds at bases. No wheeze. HEART: S1, S2. Regular rate and rhythm. Abdomen soft. Abdominal wound currently covered with wound VAC. Extremities: No edema of the feet. LABS: Hemoglobin 7.7, white count 15.8. BUN of 94, creatinine is 2.49. DIAGNOSTIC IMPRESSION AND PLAN: Patient with leukocytosis which is multifactorial in this patient who did have an ischemic bowel requiring resection and ileostomy with worsening of his clinical condition, gram-negative coverage. We will switch over to meropenem. Continue daptomycin and Eraxis and monitor clinical course closely. MMODL / IJN: [id number] /
[2020-08-05 22:43] LABS: Glucose,Whole Blood 109 mg/dL (75-99)
[2020-08-06 00:42] LABS: Glucose,Whole Blood 134 mg/dL (75-99)
[2020-08-06] MEDS: HEPARIN SODIUM,PORCINE 5,000 UNIT/ML 1 ML VIAL SQ SCH ×4 (01:15→23:44)
[2020-08-06 02:06] LABS: Glucose,Whole Blood 74 mg/dL (75-99)
[2020-08-06] MEDS: 1: MVI, ADULT NO.4 WITH VIT K 10 ML, TRACE (CONC-1ML/DOSE) 1 ML, PARENTERAL ELECTROLYTES IV SCH ×26 (02:14→16:15)
[2020-08-06 02:52] LABS: Glucose,Whole Blood 110 mg/dL (75-99)
[2020-08-06 04:04] LABS: Glucose,Whole Blood 146 mg/dL (75-99)
[2020-08-06] MEDS: INSULIN REGULAR 100 UNIT in SODIUM CHLORIDE 0.9% 100 ML IV SCH ×2 (04:04→14:32)
[2020-08-06 04:19] LABS: Anisocytosis Slight; Basophils # (A) 0.1 k/uL (0-0.2); Basophils % (A) 0 %; Eosinophils % (A) 0 %; HGB 7.8 gm/dL (13.0-17.5); Hypochromasia Moderate; Lymphocytes # (A) 0.4 k/uL (1.0-4.8); Lymphocytes % (A) 3 %; MCH 31.5 pg (25.0-35.0); MCHC 32.6 g/dL (31.0-37.0); MCV 96.7 fL (80.0-100.0); Macrocytosis Slight; Mean Platelet Volume 8.5; Monocytes # (A) 0.6 k/uL (0-1.0); Monocytes % (A) 4 %; Neutrophils # (A) 12.4 k/uL (1.3-7.7); Neutrophils % (A) 91 %; Platelet Count 100 k/uL (150-450); Poikilocytosis Moderate; RBC 2.49 m/uL (4.30-5.90); RDW 18.7 % (11.5-15.5); WBC 13.6 k/uL (3.8-10.6)
[2020-08-06] MEDS: HYDROmorphone 0.5 MG/0.5 ML SYRINGE IVP PRN (04:36)
[2020-08-06 04:40] LABS: Ionized Calcium 5.5 mg/dL (4.5-5.3)
[2020-08-06 04:44] LABS: ABG Base Excess -5.8 mmol/L; ABG HCO3 20 mmol/L (21-25); ABG Oxygen Saturation 99.9 % (94-97); ABG PCO2 35 mmHg (35-45); ABG PH 7.36 (7.35-7.45); ABG PO2 113 mmHg (83-108); ABG TCO2 21 mmol/L (19-24); Allen Test Performed? Yes
[2020-08-06 04:50] LABS: Albumin 2.1 g/dL (3.5-5.0); Calcium 8.3 mg/dL (8.4-10.2); Magnesium 2.2 mg/dL (1.6-2.3); Phosphorus 3.4 mg/dL (2.5-4.5); Potassium 4.6 mmol/L (3.5-5.1); Total Protein 4.4 g/dL (6.3-8.2)
[2020-08-06 05:38] LABS: Glucose,Whole Blood 169 mg/dL (75-99)
[2020-08-06] MEDS: MEROPENEM 1 GM in SODIUM CHLORIDE 0.9% 100 ML IVPB SCH ×2 (05:59→16:43)
[2020-08-06 07:03] LABS: Glucose,Whole Blood 145 mg/dL (75-99)
--- NOTE | 2020-08-06 07:24 | XR ---
EXAMINATION TYPE: XR chest 1V portable DATE OF EXAM: 08/06/2020 COMPARISON: 08/05/2020 HISTORY: SOB, Follow Up FINDINGS: Indwelling tubes and catheters are unchanged. No change in bibasilar opacities. Stable appearance of the cardio-mediastinal structures at this time. Pleural effusion unchanged. IMPRESSION: 1. Stable portable chest. Clinical correlation and follow up until resolution is recommended.
[2020-08-06] MEDS: HYDROmorphone 1 MG/ML 1 ML SYRINGE IVP PRN ×4 (07:25→23:44)
[2020-08-06] MEDS: BUDESONIDE 1 MG/2 ML NEBU INHALATION SCH ×2 (07:32→19:57)
[2020-08-06] MEDS: IPRATROPIUM-ALBUTEROL 3 ML NEB INHALATION SCH ×4 (07:32→19:57)
[2020-08-06] MEDS: FORMOTEROL FUMARATE 20 MCG/2 ML NEBU INHALATION SCH ×2 (07:32→19:57)
[2020-08-06 08:03] LABS: Glucose,Whole Blood 140 mg/dL (75-99)
[2020-08-06] MEDS: ASPIRIN 81 MG PO SCH (08:14)
[2020-08-06] MEDS: LEVOTHYROXINE IVP 100 MCG/5 ML VIAL IV SCH (08:14)
[2020-08-06] MEDS: CHLORHEXIDINE GLUCONATE 15 ML CUP MUCOUS MEM SCH ×2 (08:14→20:23)
[2020-08-06] MEDS: ANIDULAFUNGIN 100 MG in SODIUM CHLORIDE 0.9% 100 ML IVPB SCH (08:15)
[2020-08-06] MEDS: PANTOPRAZOLE 40 MG/10 ML VIAL IVP SCH ×2 (08:15→20:23)
[2020-08-06 09:02] LABS: Glucose,Whole Blood 139 mg/dL (75-99)
[2020-08-06] MEDS: AMIODARONE 300 MG in DEXTROSE 5% IN WATER 250 ML IV SCH ×2 (09:11)
[2020-08-06] MEDS: DEXMEDETOMIDINE/0.9% NACL(PMX) 400 MCG in EMPTY BAG 1 BAG IV SCH ×3 (09:14→20:26)
--- NOTE | 2020-08-06 09:24 | P.PN ---
Subjective Progress Note Date: 08/06/20 Principal diagnosis: Symptomatic triple-vessel coronary artery disease, mild left ventricular dysfunction. Past medical history significant for hypertension, hyperlipidemia, chronic obstructive pulmonary disease with preoperative FEV1 of 53% of predicted value, coronary artery disease with previous stenting to his right coronary artery in 2002, hypothyroid status post partial thyroidectomy, previous tobacco dependence quit smoking 20 years ago, type 2 diabetes mellitus with a preoperative hemoglobin A1c of 5.2%, and chronic kidney disease stage III with a baseline creatinine of 1.4-1.5, family history of premature coronary artery disease with a brother having a CABG at less than 50 years of age. POD #19 double coronary artery bypass grafting using the left internal mammary artery to left anterior descending coronary artery, a reverse greater saphenous vein graft from the aorta to the posterior descending coronary artery. Exclusion of the left atrial appendage using a 35 mm Atriclip, endoscopic harvesting of the right greater saphenous vein, graft flow measurement using the [employer] system, intraoperative transesophageal echocardiogram and epi-aortic scanning. Postoperative acute blood loss anemia, an expected outcome from hemodilution and cardiopulmonary bypass. Postoperative paroxysmal atrial fibrillation, unexpected. Postoperative pneumoperitoneum, unexpected. Acute on chronic kidney disease secondary to acute tubular necrosis. Pneumatosis of the small bowel. POD #13 ischemic bowel, small bowel resection. Prolonged mechanical ventilation, unexpected. Acute hypoxic respiratory failure requiring reintubation, unexpected. Postoperative hypotension requiring initiation of norepinephrine drip, unexpected. Acute abdomen, intraperitoneal hemorrhage. Postoperative day #4 exploratory laparotomy, washout of peritoneal cavity, ileostomy with small bowel resection. The patient was seen in follow-up today 08/06/2020 at his bedside in the inte nsive care unit. He remains sedated on Precedex drip at 1 mcg/kg per hour, tracheostomy is midline with mechanical ventilator support in place. Current mechanical ventilator settings are as follows: Assist control 24, TV 500, FiO2 40%, PEEP 5. He is following some verbal commands appropriately and moving all 4 extremities with verbal stimuli. He shakes his head yes when asking if having any pain. Remains on norepinephrine drip at 5 mcg/m for blood pressure support. Amiodarone drip is infusing at 0.25 mg/m for atrial fibrillation prophylaxis. Bedside monitor currently showing normal sinus rhythm heart rate 71 BPM. TPN infusing at 75 mL per hour for nutritional support. Right lower quadrant abdomen ileostomy with scant serosanguineous drainage. Laboratory results show a WBC count of 13.6 today which is trending down, hemoglobin 7.8, platelets 100, BUN 89 and creatinine 2.23. ABG results this morning show a pH of 7.36, pCO2 35, pO2 113, HCO3 20, oxygen saturation 99.9 and base excess -5.8. His T-max temperature in the last 24 hours is 100.3F, current temperature is 98.9F. He remains with antibiotic coverage of meropenem and daptomycin and is also receiving Eraxis which is managed by infectious disease. Wound VAC remains clean and dry and intact to his midline abdominal incision. Objective - Vital Signs Vital signs: Vital Signs Temp 98.8 F 08/06/20 08:00 Pulse 63 08/06/20 08:00 Resp 24 08/06/20 08:00 BP 98/56 08/06/20 07:30 Pulse Ox 96 08/06/20 08:00 Intake & Output 08/05/20 08/06/20 08/06/20 18:59 06:59 18:59 Intake Total 2602.334 2207.891 242.769 Output Total 1820 1555 50 Balance 782.334 652.891 192.769 Weight 108.3 kg Intake: IV 1686 1716 228 Anidulafungin 200 mg In 130 130 Sodium Chloride 0.9% 200 ml @ 84 mls/hr IVPB ONCE ONE Rx#:[id number] Calcium Gluconate 1 gm In 100 Sodium Chloride 0.9% 100 ml @ 100 mls/hr IVPB ONCE ONE Rx#:[id number] Meropenem 1 gm In Sodium 100 Chloride 0.9% 100 ml @ 200 mls/hr IVPB ONCE ONE Rx#:[id number] Piperacillin-Tazobactam 3 200 .375 gm In Sodium Chloride 0.9% 100 ml @ 25 mls/hr IVPB Q8HR [facility] Rx# :[id number] Sodium Chloride 0.9% 1, 220 20 20 000 ml @ 20 mls/hr IV . Q24H [facility] Rx#:[id number] TPN 900 1657 75 pressure bag 36 39 3 Intake, IV Titration 916.334 491.891 14.769 Amount Amiodarone 300 mg In 201.25 225.417 Dextrose 5% in Water 250 ml @ 0.25 MG/MIN 12.5 mls /hr IV .Q20H [facility] Rx#: [id number] Dexmedetomidine/0.9% NaCl 87.277 90.402 (Pmx) 400 mcg In Empty Bag 1 bag @ Titrate IV . Q0M [facility] Rx#:[id number] Insulin Regular 100 unit 98.525 62.917 12.6 In Sodium Chloride 0.9% 100 ml @ Per Protocol IV .Q0M [facility] Rx#:[id number] Norepinephrine 8 mg In 446.281 113.155 2.169 Sodium Chloride 0.9% 250 ml @ 0.05 MCG/KG/MIN 10. 846 mls/hr IV .[id number] [facility] Rx#:[id number] propofoL 1,000 mg In 83.001 Empty Bag 1 bag @ Titrate IV .Q0M [facility] Rx#: [id number] Output: Gastric Drainage 500 550 Urine 1320 1005 50 Emesis 0 Other: Voiding Method Indwelling Catheter Indwelling Catheter ABP, PAP, CO, CI - Last Documented Arterial Blood Pressure 111/55 Pulmonary Artery Pressure 33/14 Cardiac Output 6.7 Cardiac Index 3.1 - Constitutional Constitutional Comment(s): Patient remains sedated with Precedex drip at 1 mcg/kg per hour. Following simple commands appropriately and moving all 4 extremities with verbal stimuli. Shaking his head yes and no appropriately to verbal stimuli. General appearance: Present: cooperative - EENT Eyes: Present: PERRLA, normal appearance. Absent: scleral icterus ENT: Present: hearing grossly normal - Neck Details: Neck is supple, no JVD. No lymphadenopathy. - Respiratory Details: Lung sounds are essentially clear throughout, diminished to his bilateral bases right greater than left. No wheezes, rhonchi or crackles. Respirations are symmetrical and nonlabored with mechanical ventilator support. Current mechanical ventilator settings are as follows, assist-control 24, TV 500, FiO2 40%, PEEP 5. Oxygen saturation on current mechanical ventilator settings 97%. Tracheostomy is midline and intact. ABG results this morning show a pH of 7.36, pCO2 35, pO2 113, HCO3 20, oxygen saturation 99.9 and base excess -5.8. - Cardiovascular Details: Regular rhythm and rate. S1 and S2 present, negative for S3, gallop or murmur. Sternum is stable. Heart hugger is in place. Bedside telemetry showing normal sinus rhythm heart rate 71 BPM. Knee-high ALPHONSO hose and sequential compression devices in place to his bilateral lower extremities. Anasarca. Right brachial PICC line in place and functioning. Left radial arterial line in place and functioning. Norepinephrine drip remains infusing for blood pressure support at 5 mcg/m. Amiodarone drip remains infusing at 0.25 mg/m for atrial fibrillation prophylaxis. - Gastrointestinal Gastrointestinal Comment(s): Abdomen is soft, and slightly distended. Tender to palpate. Very hypoactive bowel sounds present in all 4 abdominal quadrants. NG tube remains in place to low intermittent wall suction with dark green drainage, 400 mL output in the last 12 hours. Right lower quadrant ileostomy with stoma pink in color, scant serosanguineous drainage. TPN infusing at 75 mL per hour for nutritional support. - Genitourinary Genitourinary Comment(s): Villafana catheter for accurate I&O. Draining clear danilo urine, 560 mL output in the last 8 hours. - Integumentary Integumentary Comment(s): Skin is warm and dry. No clubbing or cyanosis is present. Midline sternal incision is clean, dry and approximated. No drainage or redness is present. Right lower extremity EVH sites are clean, dry and approximated. No drainage or redness is present. Midline abdominal incision with wound VAC in place, dressing is clean, dry and intact. No airleak. Erythema to his coccyx and right shoulder. - Neurologic Neurologic Comment(s): Following verbal commands appropriately, moving all [address] imuli. Shaking head appropriately to yes and no questions. Neurologic: Present: CNII-XII intact - Musculoskeletal Musculoskeletal: Present: generalized weakness, strength equal bilaterally - Psychiatric Psychiatric Comment(s): Remains on Precedex drip for sedation currently infusing at 1 mcg/kg per hour. - Allied health notes Allied health notes reviewed: nursing - Labs CBC & Chem 7: 08/06/20 04:05 08/06/20 04:05 Labs: Abnormal Lab Results - Last 24 Hours (Table) 08/05/20 08/05/20 08/05/20 Range/Units 10:03 11:08 12:03 WBC (3.8-10.6) k/uL RBC (4.30-5.90) m/uL Hgb (13.0-17.5) gm/dL Hct (39.0-53.0) % RDW (11.5-15.5) % Plt Count (150-450) k/uL Neutrophils # (1.3-7.7) k/uL Lymphocytes # (1.0-4.8) k/uL ABG pO2 (83-108) mmHg ABG HCO3 (21-25) mmol/L ABG O2 Saturation (94-97) % Sodium (137-145) mmol/L Chloride (98-107) mmol/L Carbon Dioxide (22-30) mmol/L BUN (9-20) mg/dL Creatinine (0.66-1.25) mg/dL Glucose (74-99) mg/dL POC Glucose (mg/dL) 134 H 133 H 147 H (75-99) mg/dL Calcium (8.4-10.2) mg/dL Ionized Calcium Tamara (4.5-5.3) mg/dL AST (17-59) U/L ALT (4-49) U/L Total Protein (6.3-8.2) g/dL Albumin (3.5-5.0) g/dL 08/05/20 08/05/20 08/05/20 Range/Units 13:48 15:02 16:17 WBC (3.8-10.6) k/uL RBC (4.30-5.90) m/uL Hgb (13.0-17.5) gm/dL Hct (39.0-53.0) % RDW (11.5-15.5) % Plt Count (150-450) k/uL Neutrophils # (1.3-7.7) k/uL Lymphocytes # (1.0-4.8) k/uL ABG pO2 (83-108) mmHg ABG HCO3 (21-25) mmol/L ABG O2 Saturation (94-97) % Sodium (137-145) mmol/L Chloride (98-107) mmol/L Carbon Dioxide (22-30) mmol/L BUN (9-20) mg/dL Creatinine (0.66-1.25) mg/dL Glucose (74-99) mg/dL POC Glucose (mg/dL) 159 H 165 H 141 H (75-99) mg/dL Calcium (8.4-10.2) mg/dL Ionized Calcium Tamara (4.5-5.3) mg/dL AST (17-59) U/L ALT (4-49) U/L Total Protein (6.3-8.2) g/dL Albumin (3.5-5.0) g/dL 08/05/20 08/05/20 08/05/20 Range/Units 17:20 18:06 18:59 WBC (3.8-10.6) k/uL RBC (4.30-5.90) m/uL Hgb (13.0-17.5) gm/dL Hct (39.0-53.0) % RDW (11.5-15.5) % Plt Count (150-450) k/uL Neutrophils # (1.3-7.7) k/uL Lymphocytes # (1.0-4.8) k/uL ABG pO2 (83-108) mmHg ABG HCO3 (21-25) mmol/L ABG O2 Saturation (94-97) % Sodium (137-145) mmol/L Chloride (98-107) mmol/L Carbon Dioxide (22-30) mmol/L BUN (9-20) mg/dL Creatinine (0.66-1.25) mg/dL Glucose (74-99) mg/dL POC Glucose (mg/dL) 147 H 127 H 138 H (75-99) mg/dL Calcium (8.4-10.2) mg/dL Ionized Calcium Tamara (4.5-5.3) mg/dL AST (17-59) U/L ALT (4-49) U/L Total Protein (6.3-8.2) g/dL Albumin (3.5-5.0) g/dL 08/05/20 08/05/20 08/05/20 Range/Units 20:34 21:32 22:42 WBC (3.8-10.6) k/uL RBC (4.30-5.90) m/uL Hgb (13.0-17.5) gm/dL Hct (39.0-53.0) % RDW (11.5-15.5) % Plt Count (150-450) k/uL Neutrophils # (1.3-7.7) k/uL Lymphocytes # (1.0-4.8) k/uL ABG pO2 (83-108) mmHg ABG HCO3 (21-25) mmol/L ABG O2 Saturation (94-97) % Sodium (137-145) mmol/L Chloride (98-107) mmol/L Carbon Dioxide (22-30) mmol/L BUN (9-20) mg/dL Creatinine (0.66-1.25) mg/dL Glucose (74-99) mg/dL POC Glucose (mg/dL) 120 H 116 H 109 H (75-99) mg/dL Calcium (8.4-10.2) mg/dL Ionized Calcium Tamara (4.5-5.3) mg/dL AST (17-59) U/L ALT (4-49) U/L Total Protein (6.3-8.2) g/dL Albumin (3.5-5.0) g/dL 08/06/20 08/06/20 08/06/20 Range/Units 00:39 02:04 02:51 WBC (3.8-10.6) k/uL RBC (4.30-5.90) m/uL Hgb (13.0-17.5) gm/dL Hct (39.0-53.0) % RDW (11.5-15.5) % Plt Count (150-450) k/uL Neutrophils # (1.3-7.7) k/uL Lymphocytes # (1.0-4.8) k/uL ABG pO2 (83-108) mmHg ABG HCO3 (21-25) mmol/L ABG O2 Saturation (94-97) % Sodium (137-145) mmol/L Chloride (98-107) mmol/L Carbon Dioxide (22-30) mmol/L BUN (9-20) mg/dL Creatinine (0.66-1.25) mg/dL Glucose (74-99) mg/dL POC Glucose (mg/dL) 134 H 74 L 110 H (75-99) mg/dL Calcium (8.4-10.2) mg/dL Ionized Calcium Tamara (4.5-5.3) mg/dL AST (17-59) U/L ALT (4-49) U/L Total Protein (6.3-8.2) g/dL Albumin (3.5-5.0) g/dL 08/06/20 08/06/20 08/06/20 Range/Units 04:03 04:05 04:05 WBC 13.6 H (3.8-10.6) k/uL RBC 2.49 L (4.30-5.90) m/uL Hgb 7.8 L (13.0-17.5) gm/dL Hct 24.0 L (39.0-53.0) % RDW 18.7 H (11.5-15.5) % Plt Count 100 L (150-450) k/uL Neutrophils # 12.4 H (1.3-7.7) k/uL Lymphocytes # 0.4 L (1.0-4.8) k/uL ABG pO2 (83-108) mmHg ABG HCO3 (21-25) mmol/L ABG O2 Saturation (94-97) % Sodium 135 L (137-145) mmol/L Chloride 110 H (98-107) mmol/L Carbon Dioxide 20 L (22-30) mmol/L BUN 89 H (9-20) mg/dL Creatinine 2.23 H (0.66-1.25) mg/dL Glucose 138 H (74-99) mg/dL POC Glucose (mg/dL) 146 H (75-99) mg/dL Calcium 8.3 L (8.4-10.2) mg/dL Ionized Calcium Tamara 5.5 H (4.5-5.3) mg/dL AST 62 H (17-59) U/L ALT 179 H (4-49) U/L Total Protein 4.4 L (6.3-8.2) g/dL Albumin 2.1 L (3.5-5.0) g/dL 08/06/20 08/06/20 08/06/20 Range/Units 04:37 05:36 07:01 WBC (3.8-10.6) k/uL RBC (4.30-5.90) m/uL Hgb (13.0-17.5) gm/dL Hct (39.0-53.0) % RDW (11.5-15.5) % Plt Count (150-450) k/uL Neutrophils # (1.3-7.7) k/uL Lymphocytes # (1.0-4.8) k/uL ABG pO2 113 H (83-108) mmHg ABG HCO3 20 L (21-25) mmol/L ABG O2 Saturation 99.9 H (94-97) % Sodium (137-145) mmol/L Chloride (98-107) mmol/L Carbon Dioxide (22-30) mmol/L BUN (9-20) mg/dL Creatinine (0.66-1.25) mg/dL Glucose (74-99) mg/dL POC Glucose (mg/dL) 169 H 145 H (75-99) mg/dL Calcium (8.4-10.2) mg/dL Ionized Calcium Tamara (4.5-5.3) mg/dL AST (17-59) U/L ALT (4-49) U/L Total Protein (6.3-8.2) g/dL Albumin (3.5-5.0) g/dL 08/06/20 Range/Units 08:02 WBC (3.8-10.6) k/uL RBC (4.30-5.90) m/uL Hgb (13.0-17.5) gm/dL Hct (39.0-53.0) % RDW (11.5-15.5) % Plt Count (150-450) k/uL Neutrophils # (1.3-7.7) k/uL Lymphocytes # (1.0-4.8) k/uL ABG pO2 (83-108) mmHg ABG HCO3 (21-25) mmol/L ABG O2 Saturation (94-97) % Sodium (137-145) mmol/L Chloride (98-107) mmol/L Carbon Dioxide (22-30) mmol/L BUN (9-20) mg/dL Creatinine (0.66-1.25) mg/dL Glucose (74-99) mg/dL POC Glucose (mg/dL) 140 H (75-99) mg/dL Calcium (8.4-10.2) mg/dL Ionized Calcium Tamara (4.5-5.3) mg/dL AST (17-59) U/L ALT (4-49) U/L Total Protein (6.3-8.2) g/dL Albumin (3.5-5.0) g/dL Microbiology - Last 24 Hours (Table) 08/02/20 21:48 Blood Culture - Preliminary Blood No Growth after 72 hours 08/02/20 19:25 Blood Culture - Preliminary Blood No Growth after 72 hours 08/03/20 16:20 Gram Stain - Final Sputum Sputum Culture - Final Radha albicans - Imaging and Cardiology Chest x-ray: report reviewed, image reviewed Assessment and Plan Assessment: 1. Heavily calcified symptomatic triple-vessel coronary artery disease, status post 2 vessel coronary artery bypass grafting surgery 2. History of coronary artery disease with stent placement to his right coronary artery in 2002 3. Mild left ventricular dysfunction 4. History of hypertension 5. History of hyperlipidemia 6. Hypothyroid status post partial thyroidectomy 7. Chronic obstructive pulmonary disease with preoperative FEV1 53% of predicted value 8. Remote history of tobacco dependence quit smoking 20 years ago 9. Acute on chronic kidney disease stage III with a baseline creatinine of 1.4- 1.5 10. Diabetes mellitus type 2 with a preoperative hemoglobin A1c 5.2% 11. Postoperative acute blood loss anemia, expected 12. Postoperative paroxysmal atrial fibrillation, unexpected 13. Remote history of pneumonia 14. Postoperative paroxysmal atrial fibrillation, unexpected, status post exclusion of the left atrial appendage 15. Pneumoperitoneum, unexpected 16. Pneumatosis of the small bowel, ischemic bowel, status post resection of the small bowel 17. Positive sputum culture for pseudomonas fluorescens 18. Postoperative prolonged mechanical ventilation 19. Acute hypoxic respiratory failure requiring reintubation, unexpected 20. Postoperative hypotension requiring initiation of norepinephrine drip, unexpected 21. Acute abdomen, intraperitoneal hemorrhage, S/P exploratory laparotomy, washout of peritoneal cavity, ileostomy with small bowel resection 22. Postoperative thrombocytopenia, unexpected Plan: 1. Continue low dose aspirin. We will restart the metoprolol tartrate when tolerated and off the norepinephrine drip. 2. Continue IV amiodarone drip at 0.25 mg/m for atrial fibrillation prophylaxis. 3. Continue Precedex drip for sedation, managed by pulmonary critical care medicine. 4. Continue to monitor daily labs and chest x-rays. 5. Continue GI/DVT prophylaxis. 6. Pain control with current medication regimen. 7. Insulin management per primary care service. Currently on 7.5 units per hour insulin drip. 8. Continue TPN at 75 mL per hour. Keep the NG tube to low intermittent wall suction. 9. Nephrology following. Avoid nephrotoxic agents. Continue IV Lasix per their recommendations. 10. Strict accurate intake and output, daily weights. 11. Continue IV meropenem day 1, daptomycin, day 3, and Eraxis. Positive sputum culture for pseudomonas fluorescens on 07/24/2020. Sputum culture from 08/03/2020 showing Radha albicans. Blood culture results show no growth after 48 hours. Antibiotic management per Dr. Frederick's recommendations. 12. Patient's daughter Corinne updated on his care and status. 13. Continue Villafana catheter for accurate I's and O's. 14. Wean norepinephrine drip as tolerated. 15. Continue Villafana catheter for accurate I's and O's. 16. Continue wound VAC to midline abdominal incision. 17. Continue antibiotics, managed by infectious disease. 18. More recommendations to follow based on patient's clinical course. Time with Patient: Greater than 30
[2020-08-06 10:05] LABS: Glucose,Whole Blood 114 mg/dL (75-99)
[2020-08-06 11:01] LABS: Glucose,Whole Blood 131 mg/dL (75-99)
--- NOTE | 2020-08-06 12:40 | P.PN ---
Subjective Progress Note Date: 08/06/20 Follow-up for acute kidney injury. Reintubated currently on ventilator with minimal settings and vasopressors. Objective - Vital Signs Vital signs: Vital Signs Temp 98.8 F 08/06/20 08:00 Pulse 72 08/06/20 11:00 Resp 30 H 08/06/20 11:00 BP 107/57 08/06/20 11:00 Pulse Ox 97 08/06/20 11:00 Intake & Output 08/05/20 08/06/20 08/06/20 18:59 06:59 18:59 Intake Total 2602.334 2242.072 643.781 Output Total 1820 1555 350 Balance 782.334 687.072 293.781 Weight 108.3 kg Intake: IV 1686 1716 572 Anidulafungin 200 mg In 130 130 Sodium Chloride 0.9% 200 ml @ 84 mls/hr IVPB ONCE ONE Rx#:[id number] Calcium Gluconate 1 gm In 100 Sodium Chloride 0.9% 100 ml @ 100 mls/hr IVPB ONCE ONE Rx#:[id number] DAPTOmycin 650 mg In 50 Sodium Chloride 0.9% 50 ml @ 100 mls/hr IVPB Q48H [facility] Rx#:[id number] Meropenem 1 gm In Sodium 100 Chloride 0.9% 100 ml @ 200 mls/hr IVPB ONCE ONE Rx#:[id number] Piperacillin-Tazobactam 3 200 .375 gm In Sodium Chloride 0.9% 100 ml @ 25 mls/hr IVPB Q8HR [facility] Rx# :[id number] Sodium Chloride 0.9% 1, 220 20 80 000 ml @ 20 mls/hr IV . Q24H [facility] Rx#:[id number] TPN 900 1657 300 pressure bag 36 39 12 Intake, IV Titration 916.334 526.072 71.781 Amount Amiodarone 300 mg In 201.25 250.000 Dextrose 5% in Water 250 ml @ 0.25 MG/MIN 12.5 mls /hr IV .Q20H [facility] Rx#: [id number] Dexmedetomidine/0.9% NaCl 87.277 100.000 32.762 (Pmx) 400 mcg In Empty Bag 1 bag @ Titrate IV . Q0M [facility] Rx#:[id number] Insulin Regular 100 unit 98.525 62.917 36.85 In Sodium Chloride 0.9% 100 ml @ Per Protocol IV .Q0M [facility] Rx#:[id number] Norepinephrine 8 mg In 446.281 113.155 2.169 Sodium Chloride 0.9% 250 ml @ 0.05 MCG/KG/MIN 10. 846 mls/hr IV .[id number] [facility] Rx#:[id number] propofoL 1,000 mg In 83.001 Empty Bag 1 bag @ Titrate IV .Q0M [facility] Rx#: [id number] Output: Gastric Drainage 500 550 Urine 1320 1005 350 Emesis 0 Other: Voiding Method Indwelling Catheter Indwelling Catheter ABP, PAP, CO, CI - Last Documented Arterial Blood Pressure 128/55 Pulmonary Artery Pressure 33/14 Cardiac Output 6.7 Cardiac Index 3.1 - Exam No acute distress S1-S2 heard Decreased breath sounds, oral intubation Edema Villafana - Labs CBC & Chem 7: 08/06/20 04:05 08/06/20 04:05 Labs: Abnormal Lab Results - Last 24 Hours (Table) 08/05/20 08/05/20 08/05/20 Range/Units 13:48 15:02 16:17 WBC (3.8-10.6) k/uL RBC (4.30-5.90) m/uL Hgb (13.0-17.5) gm/dL Hct (39.0-53.0) % RDW (11.5-15.5) % Plt Count (150-450) k/uL Neutrophils # (1.3-7.7) k/uL Lymphocytes # (1.0-4.8) k/uL ABG pO2 (83-108) mmHg ABG HCO3 (21-25) mmol/L ABG O2 Saturation (94-97) % Sodium (137-145) mmol/L Chloride (98-107) mmol/L Carbon Dioxide (22-30) mmol/L BUN (9-20) mg/dL Creatinine (0.66-1.25) mg/dL Glucose (74-99) mg/dL POC Glucose (mg/dL) 159 H 165 H 141 H (75-99) mg/dL Calcium (8.4-10.2) mg/dL Ionized Calcium Tamara (4.5-5.3) mg/dL AST (17-59) U/L ALT (4-49) U/L Total Protein (6.3-8.2) g/dL Albumin (3.5-5.0) g/dL 08/05/20 08/05/20 08/05/20 Range/Units 17:20 18:06 18:59 WBC (3.8-10.6) k/uL RBC (4.30-5.90) m/uL Hgb (13.0-17.5) gm/dL Hct (39.0-53.0) % RDW (11.5-15.5) % Plt Count (150-450) k/uL Neutrophils # (1.3-7.7) k/uL Lymphocytes # (1.0-4.8) k/uL ABG pO2 (83-108) mmHg ABG HCO3 (21-25) mmol/L ABG O2 Saturation (94-97) % Sodium (137-145) mmol/L Chloride (98-107) mmol/L Carbon Dioxide (22-30) mmol/L BUN (9-20) mg/dL Creatinine (0.66-1.25) mg/dL Glucose (74-99) mg/dL POC Glucose (mg/dL) 147 H 127 H 138 H (75-99) mg/dL Calcium (8.4-10.2) mg/dL Ionized Calcium Tamara (4.5-5.3) mg/dL AST (17-59) U/L ALT (4-49) U/L Total Protein (6.3-8.2) g/dL Albumin (3.5-5.0) g/dL 08/05/20 08/05/20 08/05/20 Range/Units 20:34 21:32 22:42 WBC (3.8-10.6) k/uL RBC (4.30-5.90) m/uL Hgb (13.0-17.5) gm/dL Hct (39.0-53.0) % RDW (11.5-15.5) % Plt Count (150-450) k/uL Neutrophils # (1.3-7.7) k/uL Lymphocytes # (1.0-4.8) k/uL ABG pO2 (83-108) mmHg ABG HCO3 (21-25) mmol/L ABG O2 Saturation (94-97) % Sodium (137-145) mmol/L Chloride (98-107) mmol/L Carbon Dioxide (22-30) mmol/L BUN (9-20) mg/dL Creatinine (0.66-1.25) mg/dL Glucose (74-99) mg/dL POC Glucose (mg/dL) 120 H 116 H 109 H (75-99) mg/dL Calcium (8.4-10.2) mg/dL Ionized Calcium Tamara (4.5-5.3) mg/dL AST (17-59) U/L ALT (4-49) U/L Total Protein (6.3-8.2) g/dL Albumin (3.5-5.0) g/dL 08/06/20 08/06/20 08/06/20 Range/Units 00:39 02:04 02:51 WBC (3.8-10.6) k/uL RBC (4.30-5.90) m/uL Hgb (13.0-17.5) gm/dL Hct (39.0-53.0) % RDW (11.5-15.5) % Plt Count (150-450) k/uL Neutrophils # (1.3-7.7) k/uL Lymphocytes # (1.0-4.8) k/uL ABG pO2 (83-108) mmHg ABG HCO3 (21-25) mmol/L ABG O2 Saturation (94-97) % Sodium (137-145) mmol/L Chloride (98-107) mmol/L Carbon Dioxide (22-30) mmol/L BUN (9-20) mg/dL Creatinine (0.66-1.25) mg/dL Glucose (74-99) mg/dL POC Glucose (mg/dL) 134 H 74 L 110 H (75-99) mg/dL Calcium (8.4-10.2) mg/dL Ionized Calcium Tamara (4.5-5.3) mg/dL AST (17-59) U/L ALT (4-49) U/L Total Protein (6.3-8.2) g/dL Albumin (3.5-5.0) g/dL 08/06/20 08/06/20 08/06/20 Range/Units 04:03 04:05 04:05 WBC 13.6 H (3.8-10.6) k/uL RBC 2.49 L (4.30-5.90) m/uL Hgb 7.8 L (13.0-17.5) gm/dL Hct 24.0 L (39.0-53.0) % RDW 18.7 H (11.5-15.5) % Plt Count 100 L (150-450) k/uL Neutrophils # 12.4 H (1.3-7.7) k/uL Lymphocytes # 0.4 L (1.0-4.8) k/uL ABG pO2 (83-108) mmHg ABG HCO3 (21-25) mmol/L ABG O2 Saturation (94-97) % Sodium 135 L (137-145) mmol/L Chloride 110 H (98-107) mmol/L Carbon Dioxide 20 L (22-30) mmol/L BUN 89 H (9-20) mg/dL Creatinine 2.23 H (0.66-1.25) mg/dL Glucose 138 H (74-99) mg/dL POC Glucose (mg/dL) 146 H (75-99) mg/dL Calcium 8.3 L (8.4-10.2) mg/dL Ionized Calcium Tamara 5.5 H (4.5-5.3) mg/dL AST 62 H (17-59) U/L ALT 179 H (4-49) U/L Total Protein 4.4 L (6.3-8.2) g/dL Albumin 2.1 L (3.5-5.0) g/dL 08/06/20 08/06/20 08/06/20 Range/Units 04:37 05:36 07:01 WBC (3.8-10.6) k/uL RBC (4.30-5.90) m/uL Hgb (13.0-17.5) gm/dL Hct (39.0-53.0) % RDW (11.5-15.5) % Plt Count (150-450) k/uL Neutrophils # (1.3-7.7) k/uL Lymphocytes # (1.0-4.8) k/uL ABG pO2 113 H (83-108) mmHg ABG HCO3 20 L (21-25) mmol/L ABG O2 Saturation 99.9 H (94-97) % Sodium (137-145) mmol/L Chloride (98-107) mmol/L Carbon Dioxide (22-30) mmol/L BUN (9-20) mg/dL Creatinine (0.66-1.25) mg/dL Glucose (74-99) mg/dL POC Glucose (mg/dL) 169 H 145 H (75-99) mg/dL Calcium (8.4-10.2) mg/dL Ionized Calcium Tamara (4.5-5.3) mg/dL AST (17-59) U/L ALT (4-49) U/L Total Protein (6.3-8.2) g/dL Albumin (3.5-5.0) g/dL 08/06/20 08/06/20 08/06/20 Range/Units 08:02 09:00 10:02 WBC (3.8-10.6) k/uL RBC (4.30-5.90) m/uL Hgb (13.0-17.5) gm/dL Hct (39.0-53.0) % RDW (11.5-15.5) % Plt Count (150-450) k/uL Neutrophils # (1.3-7.7) k/uL Lymphocytes # (1.0-4.8) k/uL ABG pO2 (83-108) mmHg ABG HCO3 (21-25) mmol/L ABG O2 Saturation (94-97) % Sodium (137-145) mmol/L Chloride (98-107) mmol/L Carbon Dioxide (22-30) mmol/L BUN (9-20) mg/dL Creatinine (0.66-1.25) mg/dL Glucose (74-99) mg/dL POC Glucose (mg/dL) 140 H 139 H 114 H (75-99) mg/dL Calcium (8.4-10.2) mg/dL Ionized Calcium Tamara (4.5-5.3) mg/dL AST (17-59) U/L ALT (4-49) U/L Total Protein (6.3-8.2) g/dL Albumin (3.5-5.0) g/dL 08/06/20 Range/Units 10:59 WBC (3.8-10.6) k/uL RBC (4.30-5.90) m/uL Hgb (13.0-17.5) gm/dL Hct (39.0-53.0) % RDW (11.5-15.5) % Plt Count (150-450) k/uL Neutrophils # (1.3-7.7) k/uL Lymphocytes # (1.0-4.8) k/uL ABG pO2 (83-108) mmHg ABG HCO3 (21-25) mmol/L ABG O2 Saturation (94-97) % Sodium (137-145) mmol/L Chloride (98-107) mmol/L Carbon Dioxide (22-30) mmol/L BUN (9-20) mg/dL Creatinine (0.66-1.25) mg/dL Glucose (74-99) mg/dL POC Glucose (mg/dL) 131 H (75-99) mg/dL Calcium (8.4-10.2) mg/dL Ionized Calcium Tamara (4.5-5.3) mg/dL AST (17-59) U/L ALT (4-49) U/L Total Protein (6.3-8.2) g/dL Albumin (3.5-5.0) g/dL Microbiology - Last 24 Hours (Table) 08/02/20 21:48 Blood Culture - Preliminary Blood No Growth after 72 hours 08/02/20 19:25 Blood Culture - Preliminary Blood No Growth after 72 hours 08/03/20 16:20 Gram Stain - Final Sputum Sputum Culture - Final Radha albicans Assessment and Plan Assessment: #1 nonoliguric acute kidney injury secondary to hemodynamic instability leading to ischemic ATN. Baseline creatinine 1.0-1.2 MG per DL. #2 hypervolemic hyponatremia #3 status post CABG #4 bowel ischemia status post resection #5 volume overload #6 respiratory acidosis with metabolic alkalosis. Plan: #1 renal function stable. Monitor off diuretics today. #2 replace electrolytes. #3 avoid nephrotoxic agents and hypotensive episodes.
[2020-08-06 13:02] LABS: Glucose,Whole Blood 198 mg/dL (75-99)
[2020-08-06 13:58] LABS: Glucose,Whole Blood 207 mg/dL (75-99)
--- NOTE | 2020-08-06 14:24 | P.PN ---
Subjective Patient seen and examined at bedside. Patient is awake and alert and responds to commands. Objective - Vital Signs Vital signs: Vital Signs Temp 98.4 F 08/06/20 12:30 Pulse 63 08/06/20 14:00 Resp 25 H 08/06/20 14:00 BP 116/58 08/06/20 13:30 Pulse Ox 97 08/06/20 14:00 Intake & Output 08/05/20 08/06/20 08/06/20 18:59 06:59 18:59 Intake Total 2602.334 2242.072 941.290 Output Total 1820 1555 660 Balance 782.334 687.072 281.290 Weight 108.3 kg Intake: IV 1686 1716 846 Anidulafungin 200 mg In 130 130 Sodium Chloride 0.9% 200 ml @ 84 mls/hr IVPB ONCE ONE Rx#:[id number] Calcium Gluconate 1 gm In 100 Sodium Chloride 0.9% 100 ml @ 100 mls/hr IVPB ONCE ONE Rx#:[id number] DAPTOmycin 650 mg In 50 Sodium Chloride 0.9% 50 ml @ 100 mls/hr IVPB Q48H [facility] Rx#:[id number] Meropenem 1 gm In Sodium 100 Chloride 0.9% 100 ml @ 200 mls/hr IVPB ONCE ONE Rx#:[id number] Piperacillin-Tazobactam 3 200 .375 gm In Sodium Chloride 0.9% 100 ml @ 25 mls/hr IVPB Q8HR [facility] Rx# :[id number] Sodium Chloride 0.9% 1, 220 20 120 000 ml @ 20 mls/hr IV . Q24H [facility] Rx#:[id number] TPN 900 1657 525 pressure bag 36 39 21 Intake, IV Titration 916.334 526.072 95.290 Amount Amiodarone 300 mg In 201.25 250.000 Dextrose 5% in Water 250 ml @ 0.25 MG/MIN 12.5 mls /hr IV .Q20H [facility] Rx#: [id number] Dexmedetomidine/0.9% NaCl 87.277 100.000 32.762 (Pmx) 400 mcg In Empty Bag 1 bag @ Titrate IV . Q0M [facility] Rx#:[id number] Insulin Regular 100 unit 98.525 62.917 60.359 In Sodium Chloride 0.9% 100 ml @ Per Protocol IV .Q0M [facility] Rx#:[id number] Norepinephrine 8 mg In 446.281 113.155 2.169 Sodium Chloride 0.9% 250 ml @ 0.05 MCG/KG/MIN 10. 846 mls/hr IV .[id number] [facility] Rx#:[id number] propofoL 1,000 mg In 83.001 Empty Bag 1 bag @ Titrate IV .Q0M [facility] Rx#: [id number] Output: Gastric Drainage 500 550 Urine 1320 1005 660 Emesis 0 Other: Voiding Method Indwelling Catheter Indwelling Catheter ABP, PAP, CO, CI - Last Documented Arterial Blood Pressure 123/55 Pulmonary Artery Pressure 33/14 Cardiac Output 6.7 Cardiac Index 3.1 - Exam General: [toxic], [no distress], [appears at stated age] Derm: [warm], [dry] Head: [atraumatic], [normocephalic], [symmetric] Eyes: [EOMI], [no lid lag], [anicteric sclera] Mouth: [no lip lesion], [mucus membranes moist] Cardiovascular: [S1S2 reg], [no murmur], [positive posterior tibial pulse bilateral], Lungs: [CTA bilateral], [no rhonchi, no rales] , [no accessory muscle use] Abdominal: [soft], [ tender to palpation], [no guarding], [no appreciable organomegaly] Ext: [no gross muscle atrophy], [+2 edema], [no contractures] Neuro: [ CN II-XI grossly intact], [no focal neuro deficits] Psych: Sedated - Labs CBC & Chem 7: 08/06/20 04:05 08/06/20 04:05 Labs: Abnormal Lab Results - Last 24 Hours (Table) 08/05/20 08/05/20 08/05/20 Range/Units 15:02 16:17 17:20 WBC (3.8-10.6) k/uL RBC (4.30-5.90) m/uL Hgb (13.0-17.5) gm/dL Hct (39.0-53.0) % RDW (11.5-15.5) % Plt Count (150-450) k/uL Neutrophils # (1.3-7.7) k/uL Lymphocytes # (1.0-4.8) k/uL ABG pO2 (83-108) mmHg ABG HCO3 (21-25) mmol/L ABG O2 Saturation (94-97) % Sodium (137-145) mmol/L Chloride (98-107) mmol/L Carbon Dioxide (22-30) mmol/L BUN (9-20) mg/dL Creatinine (0.66-1.25) mg/dL Glucose (74-99) mg/dL POC Glucose (mg/dL) 165 H 141 H 147 H (75-99) mg/dL Calcium (8.4-10.2) mg/dL Ionized Calcium Tamara (4.5-5.3) mg/dL AST (17-59) U/L ALT (4-49) U/L Total Protein (6.3-8.2) g/dL Albumin (3.5-5.0) g/dL 08/05/20 08/05/20 08/05/20 Range/Units 18:06 18:59 20:34 WBC (3.8-10.6) k/uL RBC (4.30-5.90) m/uL Hgb (13.0-17.5) gm/dL Hct (39.0-53.0) % RDW (11.5-15.5) % Plt Count (150-450) k/uL Neutrophils # (1.3-7.7) k/uL Lymphocytes # (1.0-4.8) k/uL ABG pO2 (83-108) mmHg ABG HCO3 (21-25) mmol/L ABG O2 Saturation (94-97) % Sodium (137-145) mmol/L Chloride (98-107) mmol/L Carbon Dioxide (22-30) mmol/L BUN (9-20) mg/dL Creatinine (0.66-1.25) mg/dL Glucose (74-99) mg/dL POC Glucose (mg/dL) 127 H 138 H 120 H (75-99) mg/dL Calcium (8.4-10.2) mg/dL Ionized Calcium Tamara (4.5-5.3) mg/dL AST (17-59) U/L ALT (4-49) U/L Total Protein (6.3-8.2) g/dL Albumin (3.5-5.0) g/dL 08/05/20 08/05/20 08/06/20 Range/Units 21:32 22:42 00:39 WBC (3.8-10.6) k/uL RBC (4.30-5.90) m/uL Hgb (13.0-17.5) gm/dL Hct (39.0-53.0) % RDW (11.5-15.5) % Plt Count (150-450) k/uL Neutrophils # (1.3-7.7) k/uL Lymphocytes # (1.0-4.8) k/uL ABG pO2 (83-108) mmHg ABG HCO3 (21-25) mmol/L ABG O2 Saturation (94-97) % Sodium (137-145) mmol/L Chloride (98-107) mmol/L Carbon Dioxide (22-30) mmol/L BUN (9-20) mg/dL Creatinine (0.66-1.25) mg/dL Glucose (74-99) mg/dL POC Glucose (mg/dL) 116 H 109 H 134 H (75-99) mg/dL Calcium (8.4-10.2) mg/dL Ionized Calcium Tamara (4.5-5.3) mg/dL AST (17-59) U/L ALT (4-49) U/L Total Protein (6.3-8.2) g/dL Albumin (3.5-5.0) g/dL 08/06/20 08/06/20 08/06/20 Range/Units 02:04 02:51 04:03 WBC (3.8-10.6) k/uL RBC (4.30-5.90) m/uL Hgb (13.0-17.5) gm/dL Hct (39.0-53.0) % RDW (11.5-15.5) % Plt Count (150-450) k/uL Neutrophils # (1.3-7.7) k/uL Lymphocytes # (1.0-4.8) k/uL ABG pO2 (83-108) mmHg ABG HCO3 (21-25) mmol/L ABG O2 Saturation (94-97) % Sodium (137-145) mmol/L Chloride (98-107) mmol/L Carbon Dioxide (22-30) mmol/L BUN (9-20) mg/dL Creatinine (0.66-1.25) mg/dL Glucose (74-99) mg/dL POC Glucose (mg/dL) 74 L 110 H 146 H (75-99) mg/dL Calcium (8.4-10.2) mg/dL Ionized Calcium Tamara (4.5-5.3) mg/dL AST (17-59) U/L ALT (4-49) U/L Total Protein (6.3-8.2) g/dL Albumin (3.5-5.0) g/dL 08/06/20 08/06/20 08/06/20 Range/Units 04:05 04:05 04:37 WBC 13.6 H (3.8-10.6) k/uL RBC 2.49 L (4.30-5.90) m/uL Hgb 7.8 L (13.0-17.5) gm/dL Hct 24.0 L (39.0-53.0) % RDW 18.7 H (11.5-15.5) % Plt Count 100 L (150-450) k/uL Neutrophils # 12.4 H (1.3-7.7) k/uL Lymphocytes # 0.4 L (1.0-4.8) k/uL ABG pO2 113 H (83-108) mmHg ABG HCO3 20 L (21-25) mmol/L ABG O2 Saturation 99.9 H (94-97) % Sodium 135 L (137-145) mmol/L Chloride 110 H (98-107) mmol/L Carbon Dioxide 20 L (22-30) mmol/L BUN 89 H (9-20) mg/dL Creatinine 2.23 H (0.66-1.25) mg/dL Glucose 138 H (74-99) mg/dL POC Glucose (mg/dL) (75-99) mg/dL Calcium 8.3 L (8.4-10.2) mg/dL Ionized Calcium Tamara 5.5 H (4.5-5.3) mg/dL AST 62 H (17-59) U/L ALT 179 H (4-49) U/L Total Protein 4.4 L (6.3-8.2) g/dL Albumin 2.1 L (3.5-5.0) g/dL 08/06/20 08/06/20 08/06/20 Range/Units 05:36 07:01 08:02 WBC (3.8-10.6) k/uL RBC (4.30-5.90) m/uL Hgb (13.0-17.5) gm/dL Hct (39.0-53.0) % RDW (11.5-15.5) % Plt Count (150-450) k/uL Neutrophils # (1.3-7.7) k/uL Lymphocytes # (1.0-4.8) k/uL ABG pO2 (83-108) mmHg ABG HCO3 (21-25) mmol/L ABG O2 Saturation (94-97) % Sodium (137-145) mmol/L Chloride (98-107) mmol/L Carbon Dioxide (22-30) mmol/L BUN (9-20) mg/dL Creatinine (0.66-1.25) mg/dL Glucose (74-99) mg/dL POC Glucose (mg/dL) 169 H 145 H 140 H (75-99) mg/dL Calcium (8.4-10.2) mg/dL Ionized Calcium Tamara (4.5-5.3) mg/dL AST (17-59) U/L ALT (4-49) U/L Total Protein (6.3-8.2) g/dL Albumin (3.5-5.0) g/dL 08/06/20 08/06/20 08/06/20 Range/Units 09:00 10:02 10:59 WBC (3.8-10.6) k/uL RBC (4.30-5.90) m/uL Hgb (13.0-17.5) gm/dL Hct (39.0-53.0) % RDW (11.5-15.5) % Plt Count (150-450) k/uL Neutrophils # (1.3-7.7) k/uL Lymphocytes # (1.0-4.8) k/uL ABG pO2 (83-108) mmHg ABG HCO3 (21-25) mmol/L ABG O2 Saturation (94-97) % Sodium (137-145) mmol/L Chloride (98-107) mmol/L Carbon Dioxide (22-30) mmol/L BUN (9-20) mg/dL Creatinine (0.66-1.25) mg/dL Glucose (74-99) mg/dL POC Glucose (mg/dL) 139 H 114 H 131 H (75-99) mg/dL Calcium (8.4-10.2) mg/dL Ionized Calcium Tamara (4.5-5.3) mg/dL AST (17-59) U/L ALT (4-49) U/L Total Protein (6.3-8.2) g/dL Albumin (3.5-5.0) g/dL 08/06/20 08/06/20 Range/Units 13:01 13:58 WBC (3.8-10.6) k/uL RBC (4.30-5.90) m/uL Hgb (13.0-17.5) gm/dL Hct (39.0-53.0) % RDW (11.5-15.5) % Plt Count (150-450) k/uL Neutrophils # (1.3-7.7) k/uL Lymphocytes # (1.0-4.8) k/uL ABG pO2 (83-108) mmHg ABG HCO3 (21-25) mmol/L ABG O2 Saturation (94-97) % Sodium (137-145) mmol/L Chloride (98-107) mmol/L Carbon Dioxide (22-30) mmol/L BUN (9-20) mg/dL Creatinine (0.66-1.25) mg/dL Glucose (74-99) mg/dL POC Glucose (mg/dL) 198 H 207 H (75-99) mg/dL Calcium (8.4-10.2) mg/dL Ionized Calcium Tamara (4.5-5.3) mg/dL AST (17-59) U/L ALT (4-49) U/L Total Protein (6.3-8.2) g/dL Albumin (3.5-5.0) g/dL Microbiology - Last 24 Hours (Table) 08/02/20 21:48 Blood Culture - Preliminary Blood No Growth after 72 hours 08/02/20 19:25 Blood Culture - Preliminary Blood No Growth after 72 hours Assessment and Plan Assessment: 80 year old male with past medical history noted below who presented for symptomatic CAD and underwent 2v CABG with post-operative course complicated by respiratory failure secondary to COPD exacerbation, blood loss anemia, paroxysmal atrial fibrillation with RVR, metabolic derangements, and ischemic bowel. VDRF multifactorial due to COPD exacerbation and septic shock as consequence from bowel ischemia. Grew Pseudomonas and Radha in the sputum. Was on zosyn which was changed to meropenem by ID, anidulafungin and daptomycin were added by ID due to worsening leukocytosis and hypotension. On norepinephren currently CAD s/p CABG with 2v bypass, PABLO to LAD, and SVG to posterior descending coronary artery -Status post coronary artery bypass grafting -Cardiothoracic and cardiology following -On aspirin DM 2 - Currently on insulin drip - A1C from 06/21/2020 5.2, anticipate discharge home back on metformin which may be able to come off in the near future in the outpatient setting. Small Bowel Ischemia - s/p resection - Finished 7 days course of IV Zosyn A-fib with RVR On amio and eliquis On metoprolol BID CONNOR on CKD stage III Baseline cr 1.4-1.5 Likely cardiorenal syndrome, patient received contrast earlier in the admission. Avoid nephrotoxic meds Nephrology is following Pneumoperitoneum suspect secondary to mediastinal chest tubes -Tube d/melody -Resolved. COPD with acute exacerbation - On DuoNeb schedule Coronary artery disease -Status post coronary artery bypass grafting -Cardiothoracic and cardiology following HTN - meds per CT surgery - follow BP Hypothyroidism status post partial thyroidectomy - synthroid Morbid obesity with BMI 30.5 -Outpatient structured weight loss Prognosis is poor
[2020-08-06 15:15] LABS: Glucose,Whole Blood 203 mg/dL (75-99)
--- NOTE | 2020-08-06 15:18 | P.PN ---
Subjective Progress Note Date: 08/06/20 Principal diagnosis: Status post CABG, postoperative day #19 79-year-old white male patient with past medical history of hypertension, hyperlipidemia, moderate to severe COPD with the baseline FEV1 of 56% of predicted who came in on 07/18/2020 for elective two-vessel bypass grafting with PABLO to LAD, and SVG to the PDA. He was seen in the intensive care unit following surgery, patient was successfully weaned and extubated from mechanical ventilator and under 6 hours following his OR exit, is currently awake and alert, sitting in the chair, he is currently on 2 L of oxygen, his pulse ox is 98%, hemodynamically he stable, blood pressure is 106/51, PA pressures 35/11, CVP is 8, no fever or chills, IV fluids including the 0.9 normal saline at a rate of 30 ML per hour, insulin is 4.5 units per hour, no vasoactive drips. Today's chest x-ray shows a pneumoperitoneum with lucency present underneath the right hemidiaphragm. He has left pleural and mediastinal chest tube, and there has been 500 mL of serosanguineous output from the left pleural and 350 mL from the mediastinal chest tube in the last 24 hours. Is having some mild discomfort under the right rib cage, but no acute distress, abdomen is distended but soft, he is hemodynamically stable, he is in sinus mechanism, no nausea vomiting or diarrhea. CT of the abdomen and pelvis is pending today's labs have been reviewed, showing white blood cell count of 11.9, hemoglobin of 9, sodium is 133, the rest of the electrolytes were within normal limits, B1 is 25 creatinine is 1.18 On 07/21/2020 patient seen in follow-up in the intensive care unit, today is postoperative day 3 status post three-vessel coronary artery bypass grafting, (patient became more short of breath, wheezy, patient has a known history of moderately severe COPD/emphysema, we started him on IV Solu-Medrol, and Pulmicort and Perforomist were added. This morning she remains on 3 L of oxygen his pulse ox is 94-95%, hemodynamically he stable, he just on plan and was seen and rated 20 ML per hour, insulin is a 2.5 units per hour, today's chest x-ray showing slight increased bibasilar atelectasis or infiltrates. He thinks the breathing treatments in the steroids have significantly helped, breathing easier, he is achieving 500-750 on his incentive spirometer, not able to bring up any sputum yet. he is currently sitting up in a chair, in no acute distress, his incisional pain is fairly well-controlled, patient had another episode of A. fib with RVR last night, he is back in sinus rhythm with a controlled rate this morning. He received a dose of Lasix this morning. Chest tubes have been discontinued. On 07/31/2020 patient seen in follow-up in the intensive care unit. He is postoperative day 12 status post three-vessel bypass grafting, and postoperative day #7 status post exploratory laparotomy and small bowel resection, he is awake and alert, he was extubated yesterday to a BiPAP support, this morning he remains on BiPAP, pressures of 10 and 5, and FiO2 of 35%, and his pulse ox is 100%, hemodynamically he stable, he is A. fib on a monitor with a rate of 98 BPM, he is currently on 9.9 normal seen at a rate of 10 ML per hour, insulin is at 2 units per hour, amiodarone at 0.5 mg per hour, heparin is at weight-based protocol, and TPN is a 75 ML per hour. Today's chest x-ray shows a stable portable chest, with bibasilar infiltrates greater on the right. She remains on Lasix at 40 mg every 12 hours, and he is negative fluid balance negative, at - 645 ML over the last 24 hours. No fever or chills, appears to be normally swollen, we will plus edema in lower extremities, his labs have been reviewed, showing white blood cell count 15.1, hemoglobin of 8, sodium of 132, potassium is 3.5, chloride is 100, his BUN is 63, and a creatinine is 1.94, calcitonin is trending down, down to 1.41 from 3.53. He remains on Zosyn or antibiotic coverage for evidence of Pseudomonas in his sputum culture. His NG tube in p lace to low intermittent suction, and there has been about 400 mL of bilious output in the last 24 hours, patient is passing gas but has not had any bowel movement yet. Surgical services are following. Reevaluated today on 08/01/20, patient remains in the ICU, presently on 5 L nasal cannula, was on BiPAP last night. Patient remains on TPN, amiodarone at 0.5 mg/m, he is also on insulin at 4 units per hour. Patient looks frail, he is postoperative day #13 status post CABG, and postoperative day #8 post exploratory laparotomy and small bowel resection. Patient was extubated on , intermittently on BiPAP especially at night. Patient is hemodynamically stable, not requiring any pressors. Remains on diuretics, and his chest x-ray today showed worsening bibasilar infiltrates and small effusions, remain empirically on antibiotics. Patient remains on Zosyn, and his sputum was positive for pseudomonas aeruginosa. WBC count is 17.7 hemoglobin is 7.9. Electrolytes are normal except for slightly low potassium of 3.3, renal profile is about the same as it has been in the last few days, BUN of 69 and creatinine of 1.89. Pro-calcitonin is coming down, it is 1.41 Reevaluated today on 08/02/20, over the last 24 hours, patient's clinical status has been deteriorating, he is developing hypotension requiring norepinephrine presently at 20 mcg/m, patient seems to be complaining of abdominal distention and tenderness, on physical examination his abdomen is quite tender. CBC showed leukocytosis with WBC count of 29.1. Hemoglobin is 6.8, there is positive bandemia noted on the differential. BUN is up to 91 creatinine 2.54, lactic acid is 1.4 this morning. ABG today showed a pO2 of 82 pCO2 of 51 pH of 7.29 patient has absent bowel sounds on examination, and his nasogastric tube continues to have significant drainage with bile colored drainage about 300 mL in the last 8 hours. Patient remains on TPN at 75 ML per hour, and he is also on amiodarone for atrial fibrillation. Rate seems to be controlled with amiodarone. Patient remains on Zosyn for antibiotics coverage. His sputum culture came back positive for Pseudomonas fluorescence. This was from 07/24/20. General surgery was notified about this condition and the patient will undergo expiratory laparotomy again today. This is supposed to be done as soon as possible. Patient was intubated in the ICU by [facility], chest x-ray showed bibasilar atelectasis and small pleural effusions today. His ventilator setti ngs at present are assist control rate of 24 volume is 500 FiO2 is 50% PEEP is 5. ABG post intubation showed a pO2 of 292 pCO2 of 52 pH of 7.28. Hence FiO2 was cut down to 50%. And The vent settings otherwise the same. Reevaluated today on 08/03/20, patient remains in the ICU, patient had another exploratory laparotomy yesterday, and he was found to have significant amount of blood in the peritoneal cavity. Ended up with expiratory laparotomy and ileostomy with small bowel resection. Patient is now postoperative day #17, double coronary artery bypass grafting postoperative day #10 small bowel resection postoperative day #1 expiratory laparotomy washout of peritoneal cavity and ileostomy. Patient was sent back to the ICU on mechanical ventilation, and he remains intubated and mechanically ventilated. Patient is sedated, he is requiring significant amount of norepinephrine at 17 mcg/m, he is on propofol at 50 mcg/kg/m amiodarone 0.5 mg/m patient is also on TPN and on insulin at 4 units per hour. His ventilator settings are assist control rate 24 tidal volume is 500 FiO2 is 40% PEEP is 5 ABG showed a pO2 of 86 pCO2 of 42 pH of 7.32. Considering his peritoneal bleeding, it was recommended by surgery not to use any high-dose Lovenox, patient is on only subcu heparin. Also recommended by surgery not to wean and I believe the patient is not amenable at this point, especially with him requiring norepinephrine and he is hemodynamically considered unstable. Patient is in atrial fibrillation rate of 97 but seems to be controlled. Urine output is about 50 mL per hour. Chest x- ray showed bilateral pleural effusions. Patient is receiving albumin and diuretics. Today we went ahead and removed his right femoral arterial line, and placed a new left radial arterial line. Reevaluated today on 08/04/20, patient remains in the ICU, intubated, sedated, patient was given a sedation holiday, however he became extremely agitated, and had to place him back on propofol. Patient is on assist control rate of 24 tidal volume is 500 FiO2 is 40% PEEP of 5. ABG showed a pO2 of 106 pCO2 of 40 pH of 7.32. Patient remains on multiple drips including norepinephrine at 0.15 mcg/kg/m, he is also on propofol at 40 mcg/kg/m, insulin at 8 units per hour, amiodarone at 0.5 mg/m. Patient is receiving TPN at 75 mL per hour. Antibiotics mix he is on Zosyn and on atelectasis. Patient is now postoperative day #17, double coronary artery bypass grafting. Postoperative day #11 small bowel resection postoperative day #2 expiratory laparotomy and ileostomy. Patient did not tolerate to be off sedation hence had to place him back on propofol, and I clearly felt that the patient is not ready for weaning. Chest x-ray continues to show small bilateral pleural effusions. Considering the patient is -1750 ML in the last 24 hours, and I would hold the Lasix. We will wean pressors. And will wean and possibly discontinue sedation if tolerates. Patient is not ready to be extubated at this point. Reevaluated today on 08/05/20, patient remains in the ICU, intubated and mechani drew ventilated. His ventilator settings are assist control rate of 24 tidal volume is 500 FiO2 is 40% and PEEP of 5. ABG showed a pO2 of 100 pCO2 of 39 pH of 7.29. Chest x-ray continues to show bilateral small effusions and atelectasis. Drips he is on amiodarone at 0.5 mg/m, norepinephrine at 0.08 micrograms per kilo per minute, propofol at 25 mcg/kg/m, insulin at 8 units per hour, he is also on TPN at 75 ML per hour, patient remains on daptomycin, ileostomy is not functional yet. Patient has wound VAC, and abdomen seems to be fairly benign on physical examination. Patient is noted to be a bit metabolically acidotic, his diuretics remains on hold, patient did have seems to be hypervolemic hyponatremia, and nonoliguric acute kidney injury. His a leukocytosis today is improving WBC count is down to 18.8. Hemoglobin is 7.7. Reevaluated today on 08/06/20, patient remains in the ICU, intubated and mechanically ventilated. Ventilator settings are assist control rate of 24 tidal volume is 500 FiO2 is 40% and PEEP of 5. ABG showed a pO2 of 113 pCO2 of 35 pH of 7.36. Patient is on multiple drips including amiodarone at 0.05 mg/m, patient was on propofol which I have switched to Precedex insulin 7.5 units per hour, remains on TPN. And I plan to give the patient a trial of pressure support of 10 and CPAP. However I was notified by the nurse taking care of the patient that the patient became extremely tachypneic 1 pressure support of 10 and CPAP, hence placed back on full mode of mechanical ventilation, assist control mode with the same ventilator settings. Obviously the patient is not quite ready for weaning, and I believe the patient will most likely require tracheostomy down the line. WBC count is 13.6 hemoglobin is 7.8. Basic metabolic profile is normal BUN is 89 creatinine is 2.23, improving with holding diuretics. Chest x-ray continues to show by basilar opacities, improvement in bilateral pleural effusions, otherwise no significant change. Objective - Vital Signs Vital signs: Vital Signs Temp 98.4 F 08/06/20 12:30 Pulse 63 08/06/20 14:00 Resp 25 H 08/06/20 14:00 BP 116/58 08/06/20 13:30 Pulse Ox 97 08/06/20 14:00 Intake & Output 08/05/20 08/06/20 08/06/20 18:59 06:59 18:59 Intake Total 2602.334 2242.072 946.082 Output Total 1820 1555 660 Balance 782.334 687.072 286.082 Weight 108.3 kg Intake: IV 1686 1716 846 Anidulafungin 200 mg In 130 130 Sodium Chloride 0.9% 200 ml @ 84 mls/hr IVPB ONCE ONE Rx#:[id number] Calcium Gluconate 1 gm In 100 Sodium Chloride 0.9% 100 ml @ 100 mls/hr IVPB ONCE ONE Rx#:[id number] DAPTOmycin 650 mg In 50 Sodium Chloride 0.9% 50 ml @ 100 mls/hr IVPB Q48H [facility] Rx#:[id number] Meropenem 1 gm In Sodium 100 Chloride 0.9% 100 ml @ 200 mls/hr IVPB ONCE ONE Rx#:[id number] Piperacillin-Tazobactam 3 200 .375 gm In Sodium Chloride 0.9% 100 ml @ 25 mls/hr IVPB Q8HR [facility] Rx# :[id number] Sodium Chloride 0.9% 1, 220 20 120 000 ml @ 20 mls/hr IV . Q24H [facility] Rx#:[id number] TPN 900 1657 525 pressure bag 36 39 21 Intake, IV Titration 916.334 526.072 100.082 Amount Amiodarone 300 mg In 201.25 250.000 Dextrose 5% in Water 250 ml @ 0.25 MG/MIN 12.5 mls /hr IV .Q20H [facility] Rx#: [id number] Dexmedetomidine/0.9% NaCl 87.277 100.000 32.762 (Pmx) 400 mcg In Empty Bag 1 bag @ Titrate IV . Q0M [facility] Rx#:[id number] Insulin Regular 100 unit 98.525 62.917 65.151 In Sodium Chloride 0.9% 100 ml @ Per Protocol IV .Q0M [facility] Rx#:[id number] Norepinephrine 8 mg In 446.281 113.155 2.169 Sodium Chloride 0.9% 250 ml @ 0.05 MCG/KG/MIN 10. 846 mls/hr IV .[id number] [facility] Rx#:[id number] propofoL 1,000 mg In 83.001 Empty Bag 1 bag @ Titrate IV .Q0M [facility] Rx#: [id number] Output: Gastric Drainage 500 550 Urine 1320 1005 660 Emesis 0 Other: Voiding Method Indwelling Catheter Indwelling Catheter ABP, PAP, CO, CI - Last Documented Arterial Blood Pressure 123/55 Pulmonary Artery Pressure 33/14 Cardiac Output 6.7 Cardiac Index 3.1 - Exam GENERAL EXAM: 80-year-old intubated mechanically ventilated, sedated, in no distress.. HEAD: Normocephalic/atraumatic. The tracheal tube is intact ENT: PERRLA, EOMI, no icterus, no neck masses, no JVD, no stridor. CHEST: No chest wall deformity. Symmetrical expansion. Sternal incision is clean dry and intact, chest tube sites clean dry and intact LUNGS: Equal air entry fine crackles at the base. CVS: irregular rate and rhythm, normal S1 and S2, no gallops, no murmurs, no rubs ABDOMEN: Distended abdomen, tenderness on palpation, no bowel sounds. Abdominal incision is clean. Ileostomy is noted, nonfunctional yet, wound VAC is noted Dressing is clean. EXTREMITIES: 1+ bipedal edema no clubbing no cyanosis. Positive Pulses bilatera lly.. MUSCULOSKELETAL: Could not assess, patient was generally weak. SKIN: No rashes CENTRAL NERVOUS SYSTEM: Off propofol, the patient was noted to be arousable, able to squeeze hands, wiggling toes, and follows very simple instructions. - Labs CBC & Chem 7: 08/06/20 04:05 08/06/20 04:05 Labs: Abnormal Lab Results - Last 24 Hours (Table) 08/05/20 08/05/20 08/05/20 Range/Units 15:02 16:17 17:20 WBC (3.8-10.6) k/uL RBC (4.30-5.90) m/uL Hgb (13.0-17.5) gm/dL Hct (39.0-53.0) % RDW (11.5-15.5) % Plt Count (150-450) k/uL Neutrophils # (1.3-7.7) k/uL Lymphocytes # (1.0-4.8) k/uL ABG pO2 (83-108) mmHg ABG HCO3 (21-25) mmol/L ABG O2 Saturation (94-97) % Sodium (137-145) mmol/L Chloride (98-107) mmol/L Carbon Dioxide (22-30) mmol/L BUN (9-20) mg/dL Creatinine (0.66-1.25) mg/dL Glucose (74-99) mg/dL POC Glucose (mg/dL) 165 H 141 H 147 H (75-99) mg/dL Calcium (8.4-10.2) mg/dL Ionized Calcium Tamara (4.5-5.3) mg/dL AST (17-59) U/L ALT (4-49) U/L Total Protein (6.3-8.2) g/dL Albumin (3.5-5.0) g/dL 08/05/20 08/05/20 08/05/20 Range/Units 18:06 18:59 20:34 WBC (3.8-10.6) k/uL RBC (4.30-5.90) m/uL Hgb (13.0-17.5) gm/dL Hct (39.0-53.0) % RDW (11.5-15.5) % Plt Count (150-450) k/uL Neutrophils # (1.3-7.7) k/uL Lymphocytes # (1.0-4.8) k/uL ABG pO2 (83-108) mmHg ABG HCO3 (21-25) mmol/L ABG O2 Saturation (94-97) % Sodium (137-145) mmol/L Chloride (98-107) mmol/L Carbon Dioxide (22-30) mmol/L BUN (9-20) mg/dL Creatinine (0.66-1.25) mg/dL Glucose (74-99) mg/dL POC Glucose (mg/dL) 127 H 138 H 120 H (75-99) mg/dL Calcium (8.4-10.2) mg/dL Ionized Calcium Tamara (4.5-5.3) mg/dL AST (17-59) U/L ALT (4-49) U/L Total Protein (6.3-8.2) g/dL Albumin (3.5-5.0) g/dL 08/05/20 08/05/20 08/06/20 Range/Units 21:32 22:42 00:39 WBC (3.8-10.6) k/uL RBC (4.30-5.90) m/uL Hgb (13.0-17.5) gm/dL Hct (39.0-53.0) % RDW (11.5-15.5) % Plt Count (150-450) k/uL Neutrophils # (1.3-7.7) k/uL Lymphocytes # (1.0-4.8) k/uL ABG pO2 (83-108) mmHg ABG HCO3 (21-25) mmol/L ABG O2 Saturation (94-97) % Sodium (137-145) mmol/L Chloride (98-107) mmol/L Carbon Dioxide (22-30) mmol/L BUN (9-20) mg/dL Creatinine (0.66-1.25) mg/dL Glucose (74-99) mg/dL POC Glucose (mg/dL) 116 H 109 H 134 H (75-99) mg/dL Calcium (8.4-10.2) mg/dL Ionized Calcium Tamara (4.5-5.3) mg/dL AST (17-59) U/L ALT (4-49) U/L Total Protein (6.3-8.2) g/dL Albumin (3.5-5.0) g/dL 08/06/20 08/06/20 08/06/20 Range/Units 02:04 02:51 04:03 WBC (3.8-10.6) k/uL RBC (4.30-5.90) m/uL Hgb (13.0-17.5) gm/dL Hct (39.0-53.0) % RDW (11.5-15.5) % Plt Count (150-450) k/uL Neutrophils # (1.3-7.7) k/uL Lymphocytes # (1.0-4.8) k/uL ABG pO2 (83-108) mmHg ABG HCO3 (21-25) mmol/L ABG O2 Saturation (94-97) % Sodium (137-145) mmol/L Chloride (98-107) mmol/L Carbon Dioxide (22-30) mmol/L BUN (9-20) mg/dL Creatinine (0.66-1.25) mg/dL Glucose (74-99) mg/dL POC Glucose (mg/dL) 74 L 110 H 146 H (75-99) mg/dL Calcium (8.4-10.2) mg/dL Ionized Calcium Tamara (4.5-5.3) mg/dL AST (17-59) U/L ALT (4-49) U/L Total Protein (6.3-8.2) g/dL Albumin (3.5-5.0) g/dL 08/06/20 08/06/20 08/06/20 Range/Units 04:05 04:05 04:37 WBC 13.6 H (3.8-10.6) k/uL RBC 2.49 L (4.30-5.90) m/uL Hgb 7.8 L (13.0-17.5) gm/dL Hct 24.0 L (39.0-53.0) % RDW 18.7 H (11.5-15.5) % Plt Count 100 L (150-450) k/uL Neutrophils # 12.4 H (1.3-7.7) k/uL Lymphocytes # 0.4 L (1.0-4.8) k/uL ABG pO2 113 H (83-108) mmHg ABG HCO3 20 L (21-25) mmol/L ABG O2 Saturation 99.9 H (94-97) % Sodium 135 L (137-145) mmol/L Chloride 110 H (98-107) mmol/L Carbon Dioxide 20 L (22-30) mmol/L BUN 89 H (9-20) mg/dL Creatinine 2.23 H (0.66-1.25) mg/dL Glucose 138 H (74-99) mg/dL POC Glucose (mg/dL) (75-99) mg/dL Calcium 8.3 L (8.4-10.2) mg/dL Ionized Calcium Tamara 5.5 H (4.5-5.3) mg/dL AST 62 H (17-59) U/L ALT 179 H (4-49) U/L Total Protein 4.4 L (6.3-8.2) g/dL Albumin 2.1 L (3.5-5.0) g/dL 08/06/20 08/06/20 08/06/20 Range/Units 05:36 07:01 08:02 WBC (3.8-10.6) k/uL RBC (4.30-5.90) m/uL Hgb (13.0-17.5) gm/dL Hct (39.0-53.0) % RDW (11.5-15.5) % Plt Count (150-450) k/uL Neutrophils # (1.3-7.7) k/uL Lymphocytes # (1.0-4.8) k/uL ABG pO2 (83-108) mmHg ABG HCO3 (21-25) mmol/L ABG O2 Saturation (94-97) % Sodium (137-145) mmol/L Chloride (98-107) mmol/L Carbon Dioxide (22-30) mmol/L BUN (9-20) mg/dL Creatinine (0.66-1.25) mg/dL Glucose (74-99) mg/dL POC Glucose (mg/dL) 169 H 145 H 140 H (75-99) mg/dL Calcium (8.4-10.2) mg/dL Ionized Calcium Tamara (4.5-5.3) mg/dL AST (17-59) U/L ALT (4-49) U/L Total Protein (6.3-8.2) g/dL Albumin (3.5-5.0) g/dL 08/06/20 08/06/20 08/06/20 Range/Units 09:00 10:02 10:59 WBC (3.8-10.6) k/uL RBC (4.30-5.90) m/uL Hgb (13.0-17.5) gm/dL Hct (39.0-53.0) % RDW (11.5-15.5) % Plt Count (150-450) k/uL Neutrophils # (1.3-7.7) k/uL Lymphocytes # (1.0-4.8) k/uL ABG pO2 (83-108) mmHg ABG HCO3 (21-25) mmol/L ABG O2 Saturation (94-97) % Sodium (137-145) mmol/L Chloride (98-107) mmol/L Carbon Dioxide (22-30) mmol/L BUN (9-20) mg/dL Creatinine (0.66-1.25) mg/dL Glucose (74-99) mg/dL POC Glucose (mg/dL) 139 H 114 H 131 H (75-99) mg/dL Calcium (8.4-10.2) mg/dL Ionized Calcium Tamara (4.5-5.3) mg/dL AST (17-59) U/L ALT (4-49) U/L Total Protein (6.3-8.2) g/dL Albumin (3.5-5.0) g/dL 08/06/20 08/06/20 Range/Units 13:01 13:58 WBC (3.8-10.6) k/uL RBC (4.30-5.90) m/uL Hgb (13.0-17.5) gm/dL Hct (39.0-53.0) % RDW (11.5-15.5) % Plt Count (150-450) k/uL Neutrophils # (1.3-7.7) k/uL Lymphocytes # (1.0-4.8) k/uL ABG pO2 (83-108) mmHg ABG HCO3 (21-25) mmol/L ABG O2 Saturation (94-97) % Sodium (137-145) mmol/L Chloride (98-107) mmol/L Carbon Dioxide (22-30) mmol/L BUN (9-20) mg/dL Creatinine (0.66-1.25) mg/dL Glucose (74-99) mg/dL POC Glucose (mg/dL) 198 H 207 H (75-99) mg/dL Calcium (8.4-10.2) mg/dL Ionized Calcium Tamara (4.5-5.3) mg/dL AST (17-59) U/L ALT (4-49) U/L Total Protein (6.3-8.2) g/dL Albumin (3.5-5.0) g/dL Microbiology - Last 24 Hours (Table) 08/02/20 21:48 Blood Culture - Preliminary Blood No Growth after 72 hours 08/02/20 19:25 Blood Culture - Preliminary Blood No Growth after 72 hours Assessment and Plan Assessment: #1. Symptomatic coronary artery disease, status post two-vessel coronary artery bypass grafting with PABLO to the LAD, SVG to the PDA, postoperative day #19 #2. Postoperative atrial fibrillation with rapid ventricular response requiring amiodarone and metoprolol, on subcu heparin. #3. Acute ischemic small bowel, pneumatosis, status post exploratory laparotomy and small bowel resection, on 07/24/2020, today is postoperative day number 13 #4. Acute hypoxic respiratory failure following bowel surgery, patient was extubated on 07/30/2022 BiPAP at night, and nasal cannula during the day. #5. Small atelectatic/pleural effusions involving both lung bases in addition to a small to moderate bilateral pleural effusion cannot rule out underlying infiltrate. Certainly secondary to Pseudomonas. #6. Evidence of Pseudomonas in the sputum culture, patient is covered with Zosyn for antibiotic coverage #7. History of coronary artery disease with previous stent placement #8. History of hypertension #9. History of hyperlipidemia #10. Acute on chronic kidney injury. #11. COPD moderate to severe with preop FEV1 of 53% of predicted #12. 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 Chronic kidney disease stage III at baseline #14. Diabetes mellitus type 2 #15. Postoperative acute blood loss anemia, expected outcome of open heart surgery #16. Postoperative paroxysmal A. fib, patient has had 2 episodes of A. fib with RVR in the postoperative period #17. Hypothyroidism status post partial thyroidectomy #18. Status post exploratory laparotomy and ileostomy postoperative day #4, re intubated since then. And remains intubated. #19 hypervolemic hyponatremia #20 acute on chronic kidney injury. Possible acute tubular necrosis. Improving steadily since we placed the diuretics on hold. Recommendation: Continue ventilatory support. Not ready for weaning or extubation. Patient was given a trial of pressure support and CPAP, tolerated only for about 15 minutes. Continue same ventilator settings. Titrate and discontinue norepinephrine if possible. . Continue Zosyn. Continue to hold diuretics again today. Continue present supportive care measures Continue TPN. Continue low-dose aspirin and beta blockers. Continue amiodarone. Continue GI and DVT prophylaxis. Subcu heparin Prognosis remains extremely guarded. We'll continue to follow. Considering his prolonged ICU stay and the fact that the patient may have sustained significant critical illness polyneuropathy, may have to consider tracheostomy in this patient. Critical care time is over 30 minutes Time with Patient: Greater than 30
[2020-08-06 16:04] LABS: Glucose,Whole Blood 216 mg/dL (75-99)
--- NOTE | 2020-08-06 16:25 | P.PN ---
Subjective Progress Note Date: 08/06/20 CHIEF COMPLAINT: Ischemic bowel HISTORY OF PRESENT ILLNESS: The patient is a 80-year-old male status post small bowel resection for ischemic bowel, 07/24/2020 and re-exploration 08/02/2020 due to intra-abdominal hemorrhage. Patient is full code. Ileostomy is pink patent and functioning. He has minimal stool. Wound VAC intact without leakage. Patient is on full ventilatory support. Orogastric tube is with bilious drainage with midline dressing clean dry and intact. ROS: On full ventilatory support. PHYSICAL EXAM: VITAL SIGNS: Reviewed CONSTITUTIONAL: Well developed and in no acute distress. EYES: Conjuctivae without sclera icterus. Extraocular movements grossly intact. HEAD, EARS, NOSE, THROAT: Moist buccal mucosa. Head is atraumatic, normocephalic. RESPIRATORY: Non-labored respirations and equal bilateral excursions. CARDIOVASCULAR: 2+ radial pulses. ABDOMEN: Incisions intact. No peritonitis. MUSCULOSKELETAL: No clubbing. No cyanosis. SKIN: Good skin turgor. NEUROLOGIC: No focal or lateralizing signs. PSYCH: Follows commands CLINICAL LABS: White blood cell count down from 30.8 down to 18.8 down to 13.6. Hemoglobin down from 8.4-7.7, stable at 7.8. Creatinine improved from 2.61 to 2.49 to 2.23. ASSESSMENT: 1. Ischemic colitis 2. Acute blood loss anemia 3. Intra-abdominal hermorrhage PLAN: 1. Wound Vac management MWF 2. Continue IV antibiotics. 3. Continue full ICU support Objective - Vital Signs Vital signs: Vital Signs Temp 98.1 F 08/06/20 16:00 Pulse 71 08/06/20 16:00 Resp 28 H 08/06/20 16:00 BP 123/56 08/06/20 15:30 Pulse Ox 96 08/06/20 16:00 Intake & Output 08/05/20 08/06/20 08/06/20 18:59 06:59 18:59 Intake Total 2602.334 2242.072 954.132 Output Total 1820 1555 660 Balance 782.334 687.072 294.132 Weight 108.3 kg Intake: IV 1686 1716 846 Anidulafungin 200 mg In 130 130 Sodium Chloride 0.9% 200 ml @ 84 mls/hr IVPB ONCE ONE Rx#:[id number] Calcium Gluconate 1 gm In 100 Sodium Chloride 0.9% 100 ml @ 100 mls/hr IVPB ONCE ONE Rx#:[id number] DAPTOmycin 650 mg In 50 Sodium Chloride 0.9% 50 ml @ 100 mls/hr IVPB Q48H [facility] Rx#:[id number] Meropenem 1 gm In Sodium 100 Chloride 0.9% 100 ml @ 200 mls/hr IVPB ONCE ONE Rx#:[id number] Piperacillin-Tazobactam 3 200 .375 gm In Sodium Chloride 0.9% 100 ml @ 25 mls/hr IVPB Q8HR [facility] Rx# :[id number] Sodium Chloride 0.9% 1, 220 20 120 000 ml @ 20 mls/hr IV . Q24H [facility] Rx#:[id number] TPN 900 1657 525 pressure bag 36 39 21 Intake, IV Titration 916.334 526.072 108.132 Amount Amiodarone 300 mg In 201.25 250.000 Dextrose 5% in Water 250 ml @ 0.25 MG/MIN 12.5 mls /hr IV .Q20H [facility] Rx#: [id number] Dexmedetomidine/0.9% NaCl 87.277 100.000 32.762 (Pmx) 400 mcg In Empty Bag 1 bag @ Titrate IV . Q0M [facility] Rx#:[id number] Insulin Regular 100 unit 98.525 62.917 73.201 In Sodium Chloride 0.9% 100 ml @ Per Protocol IV .Q0M [facility] Rx#:[id number] Norepinephrine 8 mg In 446.281 113.155 2.169 Sodium Chloride 0.9% 250 ml @ 0.05 MCG/KG/MIN 10. 846 mls/hr IV .[id number] [facility] Rx#:[id number] propofoL 1,000 mg In 83.001 Empty Bag 1 bag @ Titrate IV .Q0M [facility] Rx#: [id number] Output: Gastric Drainage 500 550 Urine 1320 1005 660 Emesis 0 Other: Voiding Method Indwelling Catheter Indwelling Catheter ABP, PAP, CO, CI - Last Documented Arterial Blood Pressure 123/57 Pulmonary Artery Pressure 33/14 Cardiac Output 6.7 Cardiac Index 3.1 - Labs CBC & Chem 7: 08/06/20 04:05 08/06/20 04:05 Labs: Abnormal Lab Results - Last 24 Hours (Table) 08/05/20 08/05/20 08/05/20 Range/Units 17:20 18:06 18:59 WBC (3.8-10.6) k/uL RBC (4.30-5.90) m/uL Hgb (13.0-17.5) gm/dL Hct (39.0-53.0) % RDW (11.5-15.5) % Plt Count (150-450) k/uL Neutrophils # (1.3-7.7) k/uL Lymphocytes # (1.0-4.8) k/uL ABG pO2 (83-108) mmHg ABG HCO3 (21-25) mmol/L ABG O2 Saturation (94-97) % Sodium (137-145) mmol/L Chloride (98-107) mmol/L Carbon Dioxide (22-30) mmol/L BUN (9-20) mg/dL Creatinine (0.66-1.25) mg/dL Glucose (74-99) mg/dL POC Glucose (mg/dL) 147 H 127 H 138 H (75-99) mg/dL Calcium (8.4-10.2) mg/dL Ionized Calcium Tamara (4.5-5.3) mg/dL AST (17-59) U/L ALT (4-49) U/L Total Protein (6.3-8.2) g/dL Albumin (3.5-5.0) g/dL 08/05/20 08/05/20 08/05/20 Range/Units 20:34 21:32 22:42 WBC (3.8-10.6) k/uL RBC (4.30-5.90) m/uL Hgb (13.0-17.5) gm/dL Hct (39.0-53.0) % RDW (11.5-15.5) % Plt Count (150-450) k/uL Neutrophils # (1.3-7.7) k/uL Lymphocytes # (1.0-4.8) k/uL ABG pO2 (83-108) mmHg ABG HCO3 (21-25) mmol/L ABG O2 Saturation (94-97) % Sodium (137-145) mmol/L Chloride (98-107) mmol/L Carbon Dioxide (22-30) mmol/L BUN (9-20) mg/dL Creatinine (0.66-1.25) mg/dL Glucose (74-99) mg/dL POC Glucose (mg/dL) 120 H 116 H 109 H (75-99) mg/dL Calcium (8.4-10.2) mg/dL Ionized Calcium Tamara (4.5-5.3) mg/dL AST (17-59) U/L ALT (4-49) U/L Total Protein (6.3-8.2) g/dL Albumin (3.5-5.0) g/dL 08/06/20 08/06/20 08/06/20 Range/Units 00:39 02:04 02:51 WBC (3.8-10.6) k/uL RBC (4.30-5.90) m/uL Hgb (13.0-17.5) gm/dL Hct (39.0-53.0) % RDW (11.5-15.5) % Plt Count (150-450) k/uL Neutrophils # (1.3-7.7) k/uL Lymphocytes # (1.0-4.8) k/uL ABG pO2 (83-108) mmHg ABG HCO3 (21-25) mmol/L ABG O2 Saturation (94-97) % Sodium (137-145) mmol/L Chloride (98-107) mmol/L Carbon Dioxide (22-30) mmol/L BUN (9-20) mg/dL Creatinine (0.66-1.25) mg/dL Glucose (74-99) mg/dL POC Glucose (mg/dL) 134 H 74 L 110 H (75-99) mg/dL Calcium (8.4-10.2) mg/dL Ionized Calcium Tamara (4.5-5.3) mg/dL AST (17-59) U/L ALT (4-49) U/L Total Protein (6.3-8.2) g/dL Albumin (3.5-5.0) g/dL 08/06/20 08/06/20 08/06/20 Range/Units 04:03 04:05 04:05 WBC 13.6 H (3.8-10.6) k/uL RBC 2.49 L (4.30-5.90) m/uL Hgb 7.8 L (13.0-17.5) gm/dL Hct 24.0 L (39.0-53.0) % RDW 18.7 H (11.5-15.5) % Plt Count 100 L (150-450) k/uL Neutrophils # 12.4 H (1.3-7.7) k/uL Lymphocytes # 0.4 L (1.0-4.8) k/uL ABG pO2 (83-108) mmHg ABG HCO3 (21-25) mmol/L ABG O2 Saturation (94-97) % Sodium 135 L (137-145) mmol/L Chloride 110 H (98-107) mmol/L Carbon Dioxide 20 L (22-30) mmol/L BUN 89 H (9-20) mg/dL Creatinine 2.23 H (0.66-1.25) mg/dL Glucose 138 H (74-99) mg/dL POC Glucose (mg/dL) 146 H (75-99) mg/dL Calcium 8.3 L (8.4-10.2) mg/dL Ionized Calcium Tamara 5.5 H (4.5-5.3) mg/dL AST 62 H (17-59) U/L ALT 179 H (4-49) U/L Total Protein 4.4 L (6.3-8.2) g/dL Albumin 2.1 L (3.5-5.0) g/dL 08/06/20 08/06/20 08/06/20 Range/Units 04:37 05:36 07:01 WBC (3.8-10.6) k/uL RBC (4.30-5.90) m/uL Hgb (13.0-17.5) gm/dL Hct (39.0-53.0) % RDW (11.5-15.5) % Plt Count (150-450) k/uL Neutrophils # (1.3-7.7) k/uL Lymphocytes # (1.0-4.8) k/uL ABG pO2 113 H (83-108) mmHg ABG HCO3 20 L (21-25) mmol/L ABG O2 Saturation 99.9 H (94-97) % Sodium (137-145) mmol/L Chloride (98-107) mmol/L Carbon Dioxide (22-30) mmol/L BUN (9-20) mg/dL Creatinine (0.66-1.25) mg/dL Glucose (74-99) mg/dL POC Glucose (mg/dL) 169 H 145 H (75-99) mg/dL Calcium (8.4-10.2) mg/dL Ionized Calcium Tamara (4.5-5.3) mg/dL AST (17-59) U/L ALT (4-49) U/L Total Protein (6.3-8.2) g/dL Albumin (3.5-5.0) g/dL 08/06/20 08/06/20 08/06/20 Range/Units 08:02 09:00 10:02 WBC (3.8-10.6) k/uL RBC (4.30-5.90) m/uL Hgb (13.0-17.5) gm/dL Hct (39.0-53.0) % RDW (11.5-15.5) % Plt Count (150-450) k/uL Neutrophils # (1.3-7.7) k/uL Lymphocytes # (1.0-4.8) k/uL ABG pO2 (83-108) mmHg ABG HCO3 (21-25) mmol/L ABG O2 Saturation (94-97) % Sodium (137-145) mmol/L Chloride (98-107) mmol/L Carbon Dioxide (22-30) mmol/L BUN (9-20) mg/dL Creatinine (0.66-1.25) mg/dL Glucose (74-99) mg/dL POC Glucose (mg/dL) 140 H 139 H 114 H (75-99) mg/dL Calcium (8.4-10.2) mg/dL Ionized Calcium Tamara (4.5-5.3) mg/dL AST (17-59) U/L ALT (4-49) U/L Total Protein (6.3-8.2) g/dL Albumin (3.5-5.0) g/dL 08/06/20 08/06/20 08/06/20 Range/Units 10:59 13:01 13:58 WBC (3.8-10.6) k/uL RBC (4.30-5.90) m/uL Hgb (13.0-17.5) gm/dL Hct (39.0-53.0) % RDW (11.5-15.5) % Plt Count (150-450) k/uL Neutrophils # (1.3-7.7) k/uL Lymphocytes # (1.0-4.8) k/uL ABG pO2 (83-108) mmHg ABG HCO3 (21-25) mmol/L ABG O2 Saturation (94-97) % Sodium (137-145) mmol/L Chloride (98-107) mmol/L Carbon Dioxide (22-30) mmol/L BUN (9-20) mg/dL Creatinine (0.66-1.25) mg/dL Glucose (74-99) mg/dL POC Glucose (mg/dL) 131 H 198 H 207 H (75-99) mg/dL Calcium (8.4-10.2) mg/dL Ionized Calcium Tamara (4.5-5.3) mg/dL AST (17-59) U/L ALT (4-49) U/L Total Protein (6.3-8.2) g/dL Albumin (3.5-5.0) g/dL 08/06/20 08/06/20 Range/Units 15:13 16:02 WBC (3.8-10.6) k/uL RBC (4.30-5.90) m/uL Hgb (13.0-17.5) gm/dL Hct (39.0-53.0) % RDW (11.5-15.5) % Plt Count (150-450) k/uL Neutrophils # (1.3-7.7) k/uL Lymphocytes # (1.0-4.8) k/uL ABG pO2 (83-108) mmHg ABG HCO3 (21-25) mmol/L ABG O2 Saturation (94-97) % Sodium (137-145) mmol/L Chloride (98-107) mmol/L Carbon Dioxide (22-30) mmol/L BUN (9-20) mg/dL Creatinine (0.66-1.25) mg/dL Glucose (74-99) mg/dL POC Glucose (mg/dL) 203 H 216 H (75-99) mg/dL Calcium (8.4-10.2) mg/dL Ionized Calcium Tamara (4.5-5.3) mg/dL AST (17-59) U/L ALT (4-49) U/L Total Protein (6.3-8.2) g/dL Albumin (3.5-5.0) g/dL Microbiology - Last 24 Hours (Table) 08/02/20 21:48 Blood Culture - Preliminary Blood No Growth after 72 hours 08/02/20 19:25 Blood Culture - Preliminary Blood No Growth after 72 hours Assessment and Plan (1) Intra abdominal hemorrhage Current Visit: Yes Status: Acute Code(s): R58 - HEMORRHAGE, NOT ELSEWHERE CLASSIFIED SNOMED Code(s): 909921681 (2) Ischemic colitis, enteritis, or enterocolitis Current Visit: Yes Status: Acute Code(s): K55.9 - VASCULAR DISORDER OF INTESTINE, UNSPECIFIED SNOMED Code(s): 03876140
[2020-08-06] MEDS: SODIUM CHLORIDE 0.9% 1,000 ML IV SCH (16:43)
[2020-08-06 17:10] LABS: Glucose,Whole Blood 155 mg/dL (75-99)
[2020-08-06 17:57] LABS: Glucose,Whole Blood 131 mg/dL (75-99)
[2020-08-06 19:10] LABS: Glucose,Whole Blood 111 mg/dL (75-99)
[2020-08-06 20:09] LABS: Glucose,Whole Blood 128 mg/dL (75-99)
[2020-08-06 21:58] LABS: Glucose,Whole Blood 124 mg/dL (75-99)
[2020-08-06 23:37] LABS: Glucose,Whole Blood 102 mg/dL (75-99)
--- NOTE | 2020-08-07 00:21 | PN ---
PROGRESS NOTE DATE OF SERVICE: 08/06/2020 REASON FOR FOLLOWUP: Leukocytosis. INTERVAL HISTORY: The patient is currently afebrile. The patient remains to be intubated on the vent. FiO2 is currently stable at 40%. No significant purulent secretions through the ET or any diarrhea reported by the nursing staff. He remains to be on a pressor support, slightly decreased though. PHYSICAL EXAMINATION: Blood pressure 121/54 with a pulse of 61, temperature 98.2. He is 100% on 40% FiO2. General description is an elderly male lying in bed in no distress. RESPIRATORY SYSTEM: Unlabored breathing with decreased intensity of breath sounds, no wheeze. HEART: S1, S2. Regular rate and rhythm. ABDOMEN: Soft, no tenderness. LABS: Hemoglobin 7.8, white count 13.6, BUN of 89, creatinine is 2.23. DIAGNOSTIC IMPRESSION AND PLAN: Patient with leukocytosis remains multifactorial in this patient with ischemic small bowel, status post resection and ileostomy plus-minus oropharyngeal candidiasis. Patient is currently covered with daptomycin, meropenem and Eraxis. White count showing a downward trend to continue while monitoring clinical course closely and continue supportive care. MMODL / IJN: [id number] /
[2020-08-07 01:18] LABS: Glucose,Whole Blood 152 mg/dL (75-99)
[2020-08-07] MEDS: HYDROmorphone 1 MG/ML 1 ML SYRINGE IVP PRN ×6 (02:46→23:21)
[2020-08-07 02:54] LABS: Glucose,Whole Blood 125 mg/dL (75-99)
[2020-08-07 04:30] LABS: ABG HCO3 20 mmol/L (21-25); ABG Oxygen Saturation 99.9 % (94-97); ABG PCO2 41 mmHg (35-45); ABG PO2 130 mmHg (83-108); ABG TCO2 22 mmol/L (19-24); Allen Test Performed? Yes
[2020-08-07 04:31] LABS: Glucose,Whole Blood 95 mg/dL (75-99)
[2020-08-07 04:47] LABS: Anisocytosis Slight; Basophils % (A) 0 %; Eosinophils % (A) 0 %; HCT 24.5 % (39.0-53.0); HGB 7.6 gm/dL (13.0-17.5); Hypochromasia Marked; Lymphocytes # (A) 0.4 k/uL (1.0-4.8); Lymphocytes % (A) 4 %; MCHC 31.2 g/dL (31.0-37.0); MCV 99.6 fL (80.0-100.0); Macrocytosis Moderate; Mean Platelet Volume 8.6; Monocytes # (A) 0.5 k/uL (0-1.0); Monocytes % (A) 5 %; Neutrophils # (A) 10.5 k/uL (1.3-7.7); Neutrophils % (A) 90 %; Platelet Count 105 k/uL (150-450); Poikilocytosis Moderate; RBC 2.46 m/uL (4.30-5.90); RDW 18.3 % (11.5-15.5); WBC 11.6 k/uL (3.8-10.6)
[2020-08-07 04:59] LABS: Albumin 2.1 g/dL (3.5-5.0); Calcium 8.6 mg/dL (8.4-10.2); Magnesium 2.4 mg/dL (1.6-2.3); Phosphorus 3.3 mg/dL (2.5-4.5); Potassium 4.4 mmol/L (3.5-5.1); Total Bilirubin 0.7 mg/dL (0.2-1.3); Total Protein 4.5 g/dL (6.3-8.2)
[2020-08-07] MEDS: 1: MVI, ADULT NO.4 WITH VIT K 10 ML, TRACE (CONC-1ML/DOSE) 1 ML, PARENTERAL ELECTROLYTES IV SCH ×12 (05:01→05:40)
[2020-08-07] MEDS: MEROPENEM 1 GM in SODIUM CHLORIDE 0.9% 100 ML IVPB SCH ×2 (05:02→17:20)
[2020-08-07] MEDS: AMIODARONE 300 MG in DEXTROSE 5% IN WATER 250 ML IV SCH ×4 (06:09→18:19)
[2020-08-07 06:16] LABS: Glucose,Whole Blood 121 mg/dL (75-99)
[2020-08-07] MEDS: INSULIN REGULAR 100 UNIT in SODIUM CHLORIDE 0.9% 100 ML IV SCH ×2 (06:16→15:50)
[2020-08-07 07:12] LABS: Glucose,Whole Blood 146 mg/dL (75-99)
--- NOTE | 2020-08-07 07:15 | XR ---
EXAMINATION TYPE: XR chest 1V portable DATE OF EXAM: 08/07/2020 COMPARISON: 08/06/2020 HISTORY: SOB, Follow Up FINDINGS: Indwelling tubes and catheters are unchanged. No change in bibasilar opacities. Stable appearance of the cardio-mediastinal structures at this time. Pleural effusion unchanged. IMPRESSION: 1. Stable portable chest. Clinical correlation and follow up until resolution is recommended.
[2020-08-07] MEDS: FORMOTEROL FUMARATE 20 MCG/2 ML NEBU INHALATION SCH ×2 (07:56→20:20)
[2020-08-07] MEDS: IPRATROPIUM-ALBUTEROL 3 ML NEB INHALATION SCH ×4 (07:56→20:20)
[2020-08-07] MEDS: BUDESONIDE 1 MG/2 ML NEBU INHALATION SCH ×2 (07:56→20:21)
[2020-08-07] MEDS: DEXMEDETOMIDINE/0.9% NACL(PMX) 400 MCG in EMPTY BAG 1 BAG IV SCH ×3 (08:00→20:01)
[2020-08-07] MEDS: HEPARIN SODIUM,PORCINE 5,000 UNIT/ML 1 ML VIAL SQ SCH ×3 (08:09→23:21)
[2020-08-07] MEDS: CHLORHEXIDINE GLUCONATE 15 ML CUP MUCOUS MEM SCH ×2 (08:09→20:10)
[2020-08-07 08:16] LABS: Glucose,Whole Blood 126 mg/dL (75-99)
[2020-08-07] MEDS: ANIDULAFUNGIN 100 MG in SODIUM CHLORIDE 0.9% 100 ML IVPB SCH (08:17)
[2020-08-07] MEDS: ASPIRIN 81 MG PO SCH (08:57)
[2020-08-07] MEDS: LEVOTHYROXINE IVP 100 MCG/5 ML VIAL IV SCH (08:57)
[2020-08-07 09:08] LABS: Glucose,Whole Blood 106 mg/dL (75-99)
[2020-08-07] MEDS: PANTOPRAZOLE 40 MG/10 ML VIAL IVP SCH ×2 (09:09→20:10)
--- NOTE | 2020-08-07 09:19 | P.PN ---
Subjective Progress Note Date: 08/07/20 Principal diagnosis: Symptomatic triple-vessel coronary artery disease, mild left ventricular dysfunction. Past medical history significant for hypertension, hyperlipidemia, chronic obstructive pulmonary disease with preoperative FEV1 of 53% of predicted value, coronary artery disease with previous stenting to his right coronary artery in 2002, hypothyroid status post partial thyroidectomy, previous tobacco dependence quit smoking 20 years ago, type 2 diabetes mellitus with a preoperative hemoglobin A1c of 5.2%, and chronic kidney disease stage III with a baseline creatinine of 1.4-1.5, family history of premature coronary artery disease with a brother having a CABG at less than 50 years of age. POD #20 double coronary artery bypass grafting using the left internal mammary artery to left anterior descending coronary artery, a reverse greater saphenous vein graft from the aorta to the posterior descending coronary artery. Exclusion of the left atrial appendage using a 35 mm Atriclip, endoscopic harvesting of the right greater saphenous vein, graft flow measurement using the [employer]Sync[employer] system, intraoperative transesophageal echocardiogram and epi-aortic scanning. Postoperative acute blood loss anemia, an expected outcome from hemodilution and cardiopulmonary bypass. Postoperative paroxysmal atrial fibrillation, unexpected. Postoperative pneumoperitoneum, unexpected. Acute on chronic kidney disease secondary to acute tubular necrosis. Pneumatosis of the small bowel. POD #14 ischemic bowel, small bowel resection. Prolonged mechanical ventilation, unexpected. Acute hypoxic respiratory failure requiring reintubation, unexpected. Postoperative hypotension requiring initiation of norepinephrine drip, unexpected. Acute abdomen, intraperitoneal hemorrhage. Postoperative day #5 exploratory laparotomy, washout of peritoneal cavity, ileostomy with small bowel resection. The patient was seen in follow-up today 08/07/2020 at his bedside in the inte nsive care unit. Currently the patient remains sedated on Precedex drip at 0.7 mcg/kg per hour, he opens his eyes with verbal stimuli, moves all 4 extremities appropriately with verbal stimuli and is shaking his head yes and no appropriately to verbal stimuli. Norepinephrine drip remains infusing at 0.03 mcg/kg/m. Bedside telemetry showing sinus bradycardia heart rate 53 bpm amiodarone drip is infusing at 0.25 mg/m for atrial fibrillation prophylaxis. Tracheostomy is midline and intact, remains with mechanical ventilator support current mechanical ventilator settings are as follows, assist control 24, tidal volume 500, FiO2 40% and PEEP of 5. Oxygen saturations on current mechanical ventilator settings is 100%. TPN is infusing at 75 mL per hour for nutritional support and he remains on insulin drip at 5.5 units per hour currently. He has been afebrile the last 24 hours. Laboratory results this morning continue to show his WBC count trending down and is 11.6 today, hemoglobin 7.6, platelets 105, BUN 83, creatinine 2.19 and cortisol level this morning is 19. ABG results this morning show a pH of 7.30, pCO2 41, pO2 130, HCO3 20, oxygen saturation 99.9 and base excess -6.0. He continues on antibiotic coverage with meropenem and daptomycin and is also receiving Eraxis being managed by infectious disease. Wound VAC to his abdominal incision remains clean, dry, intact with no air leak present. Ileostomy stoma is pink with scant bile colored drainage. Objective - Vital Signs Vital signs: Vital Signs Temp 98.1 F 08/07/20 04:00 Pulse 58 L 08/07/20 07:56 Resp 24 08/07/20 07:00 BP 103/56 08/07/20 07:00 Pulse Ox 100 08/07/20 07:00 Intake & Output 08/06/20 08/07/20 08/07/20 18:59 06:59 18:59 Intake Total 4496.250 8626.426 83.042 Output Total 1260 1360 100 Balance 218.999 788.426 -16.958 Weight 107.7 kg Intake: IV 1238 881 78 Anidulafungin 200 mg In 130 Sodium Chloride 0.9% 200 ml @ 84 mls/hr IVPB ONCE ONE Rx#:[id number] DAPTOmycin 650 mg In 50 Sodium Chloride 0.9% 50 ml @ 100 mls/hr IVPB Q48H [facility] Rx#:[id number] Sodium Chloride 0.9% 1, 200 20 000 ml @ 20 mls/hr IV . Q24H [facility] Rx#:[id number] TPN 825 825 75 pressure bag 33 36 3 Intake, IV Titration 688.641 6653.426 5.042 Amount Amiodarone 300 mg In 250 Dextrose 5% in Water 250 ml @ 0.25 MG/MIN 12.5 mls /hr IV .Q20H [facility] Rx#: [id number] Dexmedetomidine/0.9% NaCl 32.762 (Pmx) 400 mcg In Empty Bag 1 bag @ Titrate IV . Q0M [facility] Rx#:[id number] Dexmedetomidine/0.9% NaCl 100 (Pmx) 400 mcg In Empty Bag 1 bag @ Titrate IV . Q0M [facility] Rx#:[id number] Insulin Regular 100 unit 106.068 58.676 5.042 In Sodium Chloride 0.9% 100 ml @ Per Protocol IV .Q0M [facility] Rx#:[id number] Mvi, Adult No.4 with Vit 958.75 K 10 ml Trace (Conc-1Ml/ Dose) 1 ml Parenteral Electrolytes 20 ml Sodium Acetate 30 meq Potassium Acetate 20 meq In Amino Acids 5 %/Dextrose 20 % 1 ,000 ml @ 75 mls/hr IV . BY DURATION [facility] Rx#: [id number] Norepinephrine 8 mg In 2.169 Sodium Chloride 0.9% 250 ml @ 0.05 MCG/KG/MIN 10. 846 mls/hr IV .P04C89H [facility] Rx#:[id number] Output: Gastric Drainage 250 100 Urine 1010 1260 100 Other: Voiding Method Indwelling Catheter Indwelling Catheter ABP, PAP, CO, CI - Last Documented Arterial Blood Pressure 114/49 Pulmonary Artery Pressure 33/14 Cardiac Output 6.7 Cardiac Index 3.1 - Constitutional Constitutional Comment(s): Patient remains sedated with Precedex drip, following some verbal commands and moving all 4 extremities appropriately with verbal command. Shakes his head yes when asked if having pain. General appearance: Present: cooperative, no acute distress, obese - EENT Eyes: Present: PERRLA, normal appearance. Absent: scleral icterus ENT: Present: hearing grossly normal - Neck Details: Neck is supple, no JVD. - Respiratory Details: Lung sounds essentially clear throughout, diminished to his bilateral bases. Tracheostomy tube is midline and in place, mechanical ventilator support, current mechanical ventilator settings are assist control 24, TV 500, FiO2 40% and PEEP of 5. Oxygen saturation is on current mechanical ventilator settings are 100%. ABG results this morning show a pH of 7.30, pCO2 41, pO2 130, HCO3 20, oxygen saturation is 99.9% and base excess -6.0. - Cardiovascular Details: Regular rhythm and bradycardic rate. S1 and S2 present, negative for S3, gallop or murmur. Sternum is stable. Heart hugger is in place. Bedside telemetry showing sinus bradycardia heart rate 53 BPM. Knee-high ALPHONSO hose and sequential compression devices in place to his bilateral lower extremities. Right brachial PICC line in place and functioning. Left radial arterial line in place and functioning. Norepinephrine drip continues at 0.03 mcg/kg/m for blood pressure support. - Gastrointestinal Gastrointestinal Comment(s): Abdomen is soft, tender and nondistended. Hypoactive bowel sounds present to all 4 abdominal quadrants. Right lower quadrant ileostomy with pink stoma, scant serous drainage. NG tube in place to low intermittent wall suction with dark green drainage, 100 mL output in the last 12 hours. TPN infusing at 75 mL an hour for nutritional support. - Genitourinary Genitourinary Comment(s): Villafana catheter for accurate I&O. Draining clear yellow urine with 975 mL output in the last 8 hours. - Integumentary Integumentary Comment(s): Skin is warm and dry. No clubbing or cyanosis is present. Midline sternal incision is clean, dry and approximated. No drainage or redness is present. Right lower extremity EVH sites are clean, dry and approximated. No drainage or redness is present. Midline abdominal incision with wound VAC in place, dressing is clean, dry and intact. No airleak. Erythema to his coccyx and right shoulder. - Neurologic Neurologic Comment(s): Patient remains sedated on Precedex drip at 0.7 mcg/kg per hour, following some simple commands appropriately. Moving all 4 extremities with verbal stimuli. Shaking his head yes and no appropriately to verbal questions. Neurologic: Present: CNII-XII intact - Musculoskeletal Musculoskeletal: Present: generalized weakness, strength equal bilaterally - Psychiatric Psychiatric Comment(s): Patient remains sedated on Precedex drip at 0.7 mcg/kg per hour, following some simple commands appropriately. Moving all 4 extremities with verbal stimuli. Shaking his head yes and no appropriately to verbal questions. - Allied health notes Allied health notes reviewed: nursing - Labs CBC & Chem 7: 08/07/20 04:31 08/07/20 04:31 Labs: Abnormal Lab Results - Last 24 Hours (Table) 08/06/20 08/06/20 08/06/20 Range/Units 09:00 10:02 10:59 WBC (3.8-10.6) k/uL RBC (4.30-5.90) m/uL Hgb (13.0-17.5) gm/dL Hct (39.0-53.0) % RDW (11.5-15.5) % Plt Count (150-450) k/uL Neutrophils # (1.3-7.7) k/uL Lymphocytes # (1.0-4.8) k/uL ABG pH (7.35-7.45) ABG pO2 (83-108) mmHg ABG HCO3 (21-25) mmol/L ABG O2 Saturation (94-97) % Chloride (98-107) mmol/L Carbon Dioxide (22-30) mmol/L BUN (9-20) mg/dL Creatinine (0.66-1.25) mg/dL POC Glucose (mg/dL) 139 H 114 H 131 H (75-99) mg/dL Magnesium (1.6-2.3) mg/dL ALT (4-49) U/L Total Protein (6.3-8.2) g/dL Albumin (3.5-5.0) g/dL 08/06/20 08/06/20 08/06/20 Range/Units 13:01 13:58 15:13 WBC (3.8-10.6) k/uL RBC (4.30-5.90) m/uL Hgb (13.0-17.5) gm/dL Hct (39.0-53.0) % RDW (11.5-15.5) % Plt Count (150-450) k/uL Neutrophils # (1.3-7.7) k/uL Lymphocytes # (1.0-4.8) k/uL ABG pH (7.35-7.45) ABG pO2 (83-108) mmHg ABG HCO3 (21-25) mmol/L ABG O2 Saturation (94-97) % Chloride (98-107) mmol/L Carbon Dioxide (22-30) mmol/L BUN (9-20) mg/dL Creatinine (0.66-1.25) mg/dL POC Glucose (mg/dL) 198 H 207 H 203 H (75-99) mg/dL Magnesium (1.6-2.3) mg/dL ALT (4-49) U/L Total Protein (6.3-8.2) g/dL Albumin (3.5-5.0) g/dL 08/06/20 08/06/20 08/06/20 Range/Units 16:02 17:08 17:55 WBC (3.8-10.6) k/uL RBC (4.30-5.90) m/uL Hgb (13.0-17.5) gm/dL Hct (39.0-53.0) % RDW (11.5-15.5) % Plt Count (150-450) k/uL Neutrophils # (1.3-7.7) k/uL Lymphocytes # (1.0-4.8) k/uL ABG pH (7.35-7.45) ABG pO2 (83-108) mmHg ABG HCO3 (21-25) mmol/L ABG O2 Saturation (94-97) % Chloride (98-107) mmol/L Carbon Dioxide (22-30) mmol/L BUN (9-20) mg/dL Creatinine (0.66-1.25) mg/dL POC Glucose (mg/dL) 216 H 155 H 131 H (75-99) mg/dL Magnesium (1.6-2.3) mg/dL ALT (4-49) U/L Total Protein (6.3-8.2) g/dL Albumin (3.5-5.0) g/dL 08/06/20 08/06/20 08/06/20 Range/Units 19:08 20:08 21:57 WBC (3.8-10.6) k/uL RBC (4.30-5.90) m/uL Hgb (13.0-17.5) gm/dL Hct (39.0-53.0) % RDW (11.5-15.5) % Plt Count (150-450) k/uL Neutrophils # (1.3-7.7) k/uL Lymphocytes # (1.0-4.8) k/uL ABG pH (7.35-7.45) ABG pO2 (83-108) mmHg ABG HCO3 (21-25) mmol/L ABG O2 Saturation (94-97) % Chloride (98-107) mmol/L Carbon Dioxide (22-30) mmol/L BUN (9-20) mg/dL Creatinine (0.66-1.25) mg/dL POC Glucose (mg/dL) 111 H 128 H 124 H (75-99) mg/dL Magnesium (1.6-2.3) mg/dL ALT (4-49) U/L Total Protein (6.3-8.2) g/dL Albumin (3.5-5.0) g/dL 08/06/20 08/07/20 08/07/20 Range/Units 23:35 01:16 02:52 WBC (3.8-10.6) k/uL RBC (4.30-5.90) m/uL Hgb (13.0-17.5) gm/dL Hct (39.0-53.0) % RDW (11.5-15.5) % Plt Count (150-450) k/uL Neutrophils # (1.3-7.7) k/uL Lymphocytes # (1.0-4.8) k/uL ABG pH (7.35-7.45) ABG pO2 (83-108) mmHg ABG HCO3 (21-25) mmol/L ABG O2 Saturation (94-97) % Chloride (98-107) mmol/L Carbon Dioxide (22-30) mmol/L BUN (9-20) mg/dL Creatinine (0.66-1.25) mg/dL POC Glucose (mg/dL) 102 H 152 H 125 H (75-99) mg/dL Magnesium (1.6-2.3) mg/dL ALT (4-49) U/L Total Protein (6.3-8.2) g/dL Albumin (3.5-5.0) g/dL 08/07/20 08/07/20 08/07/20 Range/Units 04:23 04:31 04:31 WBC 11.6 H (3.8-10.6) k/uL RBC 2.46 L (4.30-5.90) m/uL Hgb 7.6 L (13.0-17.5) gm/dL Hct 24.5 L (39.0-53.0) % RDW 18.3 H (11.5-15.5) % Plt Count 105 L (150-450) k/uL Neutrophils # 10.5 H (1.3-7.7) k/uL Lymphocytes # 0.4 L (1.0-4.8) k/uL ABG pH 7.30 L (7.35-7.45) ABG pO2 130 H (83-108) mmHg ABG HCO3 20 L (21-25) mmol/L ABG O2 Saturation 99.9 H (94-97) % Chloride 114 H (98-107) mmol/L Carbon Dioxide 21 L (22-30) mmol/L BUN 83 H (9-20) mg/dL Creatinine 2.19 H (0.66-1.25) mg/dL POC Glucose (mg/dL) (75-99) mg/dL Magnesium 2.4 H (1.6-2.3) mg/dL ALT 138 H (4-49) U/L Total Protein 4.5 L (6.3-8.2) g/dL Albumin 2.1 L (3.5-5.0) g/dL 08/07/20 08/07/20 Range/Units 06:15 07:10 WBC (3.8-10.6) k/uL RBC (4.30-5.90) m/uL Hgb (13.0-17.5) gm/dL Hct (39.0-53.0) % RDW (11.5-15.5) % Plt Count (150-450) k/uL Neutrophils # (1.3-7.7) k/uL Lymphocytes # (1.0-4.8) k/uL ABG pH (7.35-7.45) ABG pO2 (83-108) mmHg ABG HCO3 (21-25) mmol/L ABG O2 Saturation (94-97) % Chloride (98-107) mmol/L Carbon Dioxide (22-30) mmol/L BUN (9-20) mg/dL Creatinine (0.66-1.25) mg/dL POC Glucose (mg/dL) 121 H 146 H (75-99) mg/dL Magnesium (1.6-2.3) mg/dL ALT (4-49) U/L Total Protein (6.3-8.2) g/dL Albumin (3.5-5.0) g/dL Microbiology - Last 24 Hours (Table) 08/02/20 21:48 Blood Culture - Preliminary Blood No Growth after 96 hours 08/02/20 19:25 Blood Culture - Preliminary Blood No Growth after 96 hours - Imaging and Cardiology Chest x-ray: report reviewed, image reviewed Assessment and Plan Assessment: 1. Heavily calcified symptomatic triple-vessel coronary artery disease, status post 2 vessel coronary artery bypass grafting surgery 2. History of coronary artery disease with stent placement to his right coronary artery in 2002 3. Mild left ventricular dysfunction 4. History of hypertension 5. History of hyperlipidemia 6. Hypothyroid status post partial thyroidectomy 7. Chronic obstructive pulmonary disease with preoperative FEV1 53% of predicted value 8. Remote history of tobacco dependence quit smoking 20 years ago 9. Acute on chronic kidney disease stage III with a baseline creatinine of 1.4- 1.5 10. Diabetes mellitus type 2 with a preoperative hemoglobin A1c 5.2% 11. Postoperative acute blood loss anemia, expected 12. Postoperative paroxysmal atrial fibrillation, unexpected 13. Remote history of pneumonia 14. Postoperative paroxysmal atrial fibrillation, unexpected, status post exclusion of the left atrial appendage 15. Pneumoperitoneum, unexpected 16. Pneumatosis of the small bowel, ischemic bowel, status post resection of the small bowel 17. Positive sputum culture for pseudomonas fluorescens 18. Postoperative prolonged mechanical ventilation 19. Acute hypoxic respiratory failure requiring reintubation, unexpected 20. Postoperative hypotension requiring initiation of norepinephrine drip, unexpected 21. Acute abdomen, intraperitoneal hemorrhage, S/P exploratory laparotomy, washout of peritoneal cavity, ileostomy with small bowel resection 22. Postoperative thrombocytopenia, unexpected Plan: 1. Continue low dose aspirin. We will restart the metoprolol tartrate when tolerated and off the norepinephrine drip. Patient bradycardic this morning heart rate 53 bpm. 2. Continue IV amiodarone drip at 0.25 mg/m for atrial fibrillation prophylaxis. 3. Continue Precedex drip for sedation, wean as tolerated, managed by pulmonary/ critical care medicine. 4. Continue to monitor daily labs and chest x-rays. 5. Continue GI/DVT prophylaxis. 6. Pain control with current medication regimen. 7. Insulin management per primary care service. Currently on 5.5 units per hour insulin drip. 8. Continue TPN at 75 mL per hour. Keep the NG tube to low intermittent wall suction. 9. Nephrology following. Avoid nephrotoxic agents. Continue IV Lasix per their recommendations. 10. Strict accurate intake and output, daily weights. 11. Continue IV meropenem day 2, daptomycin, day 4, and Eraxis. Positive sputum culture for pseudomonas fluorescens on 07/24/2020. Sputum culture from 08/03/2020 showing Radha albicans. Blood culture results show no growth after 48 hours. Antibiotic management per Dr. Frederick's recommendations. 12. Patient's daughter Corinne updated on his care and status. 13. Continue Villafana catheter for accurate I's and O's. 14. Wean norepinephrine drip as tolerated. 15. Continue Villafana catheter for accurate I's and O's. 16. Continue wound VAC to midline abdominal incision. Dressing changes Friday and Friday, managed by general surgery. 17. Continue antibiotics, managed by infectious disease. 18. More recommendations to follow based on patient's clinical course. Time with Patient: Greater than 30
[2020-08-07] MEDS ORDERED: 1: MVI, ADULT NO.4 WITH VIT K 10 ML, TRACE (CONC-1ML/DOSE) 1 ML, PARENTERAL ELECTROLYTES IV SCH ×6 (09:28)
--- NOTE | 2020-08-07 09:54 | P.PN ---
Subjective Patient is seen in follow-up for acute kidney injury on chronic kidney disease. Renal function slowly improving. On low-dose Levophed. He is also on amiodarone drip for A. fib with RVR. Currently on 40% FiO2. Intubated. Receiving TPN. Nonoliguric. Vital signs are stable. On vasopressor support. HEENT: Intubated. LUNGS: Breath sounds decreased. HEART: Regular rate and rhythm. ABDOMEN: No gross distention noted. EXTREMITITES: 1+ edema. Objective - Vital Signs Vital signs: Vital Signs Temp 98.2 F 08/07/20 08:00 Pulse 61 08/07/20 09:00 Resp 25 H 08/07/20 09:00 BP 116/59 08/07/20 08:00 Pulse Ox 100 08/07/20 09:00 Intake & Output 08/06/20 08/07/20 08/07/20 18:59 06:59 18:59 Intake Total 1138.610 2517.426 1108.968 Output Total 1260 1360 305 Balance 218.999 788.426 803.968 Weight 107.7 kg Intake: IV 1238 881 949 Anidulafungin 200 mg In 130 Sodium Chloride 0.9% 200 ml @ 84 mls/hr IVPB ONCE ONE Rx#:[id number] DAPTOmycin 650 mg In 50 Sodium Chloride 0.9% 50 ml @ 100 mls/hr IVPB Q48H [facility] Rx#:[id number] Sodium Chloride 0.9% 1, 200 20 40 000 ml @ 20 mls/hr IV . Q24H [facility] Rx#:[id number] TPN 825 825 903 pressure bag 33 36 6 Intake, IV Titration 620.911 0193.426 159.968 Amount Amiodarone 300 mg In 250 Dextrose 5% in Water 250 ml @ 0.25 MG/MIN 12.5 mls /hr IV .Q20H [facility] Rx#: [id number] Dexmedetomidine/0.9% NaCl 32.762 (Pmx) 400 mcg In Empty Bag 1 bag @ Titrate IV . Q0M [facility] Rx#:[id number] Dexmedetomidine/0.9% NaCl 100 (Pmx) 400 mcg In Empty Bag 1 bag @ Titrate IV . Q0M [facility] Rx#:[id number] Insulin Regular 100 unit 106.068 58.676 17.292 In Sodium Chloride 0.9% 100 ml @ Per Protocol IV .Q0M [facility] Rx#:[id number] Mvi, Adult No.4 with Vit 958.75 K 10 ml Trace (Conc-1Ml/ Dose) 1 ml Parenteral Electrolytes 20 ml Sodium Acetate 30 meq Potassium Acetate 20 meq In Amino Acids 5 %/Dextrose 20 % 1 ,000 ml @ 75 mls/hr IV . BY DURATION [facility] Rx#: [id number] Norepinephrine 8 mg In 2.169 142.676 Sodium Chloride 0.9% 250 ml @ 0.05 MCG/KG/MIN 10. 846 mls/hr IV .[id number] [facility] Rx#:[id number] Output: Gastric Drainage 250 100 Urine 1010 1260 305 Emesis 0 Other: Voiding Method Indwelling Catheter Indwelling Catheter Indwelling Catheter # Voids 0 ABP, PAP, CO, CI - Last Documented Arterial Blood Pressure 111/43 Pulmonary Artery Pressure 33/14 Cardiac Output 6.7 Cardiac Index 3.1 - Labs CBC & Chem 7: 08/07/20 04:31 08/07/20 04:31 Labs: Abnormal Lab Results - Last 24 Hours (Table) 08/06/20 08/06/20 08/06/20 Range/Units 10:02 10:59 13:01 WBC (3.8-10.6) k/uL RBC (4.30-5.90) m/uL Hgb (13.0-17.5) gm/dL Hct (39.0-53.0) % RDW (11.5-15.5) % Plt Count (150-450) k/uL Neutrophils # (1.3-7.7) k/uL Lymphocytes # (1.0-4.8) k/uL ABG pH (7.35-7.45) ABG pO2 (83-108) mmHg ABG HCO3 (21-25) mmol/L ABG O2 Saturation (94-97) % Chloride (98-107) mmol/L Carbon Dioxide (22-30) mmol/L BUN (9-20) mg/dL Creatinine (0.66-1.25) mg/dL POC Glucose (mg/dL) 114 H 131 H 198 H (75-99) mg/dL Magnesium (1.6-2.3) mg/dL ALT (4-49) U/L Total Protein (6.3-8.2) g/dL Albumin (3.5-5.0) g/dL 08/06/20 08/06/20 08/06/20 Range/Units 13:58 15:13 16:02 WBC (3.8-10.6) k/uL RBC (4.30-5.90) m/uL Hgb (13.0-17.5) gm/dL Hct (39.0-53.0) % RDW (11.5-15.5) % Plt Count (150-450) k/uL Neutrophils # (1.3-7.7) k/uL Lymphocytes # (1.0-4.8) k/uL ABG pH (7.35-7.45) ABG pO2 (83-108) mmHg ABG HCO3 (21-25) mmol/L ABG O2 Saturation (94-97) % Chloride (98-107) mmol/L Carbon Dioxide (22-30) mmol/L BUN (9-20) mg/dL Creatinine (0.66-1.25) mg/dL POC Glucose (mg/dL) 207 H 203 H 216 H (75-99) mg/dL Magnesium (1.6-2.3) mg/dL ALT (4-49) U/L Total Protein (6.3-8.2) g/dL Albumin (3.5-5.0) g/dL 08/06/20 08/06/20 08/06/20 Range/Units 17:08 17:55 19:08 WBC (3.8-10.6) k/uL RBC (4.30-5.90) m/uL Hgb (13.0-17.5) gm/dL Hct (39.0-53.0) % RDW (11.5-15.5) % Plt Count (150-450) k/uL Neutrophils # (1.3-7.7) k/uL Lymphocytes # (1.0-4.8) k/uL ABG pH (7.35-7.45) ABG pO2 (83-108) mmHg ABG HCO3 (21-25) mmol/L ABG O2 Saturation (94-97) % Chloride (98-107) mmol/L Carbon Dioxide (22-30) mmol/L BUN (9-20) mg/dL Creatinine (0.66-1.25) mg/dL POC Glucose (mg/dL) 155 H 131 H 111 H (75-99) mg/dL Magnesium (1.6-2.3) mg/dL ALT (4-49) U/L Total Protein (6.3-8.2) g/dL Albumin (3.5-5.0) g/dL 08/06/20 08/06/20 08/06/20 Range/Units 20:08 21:57 23:35 WBC (3.8-10.6) k/uL RBC (4.30-5.90) m/uL Hgb (13.0-17.5) gm/dL Hct (39.0-53.0) % RDW (11.5-15.5) % Plt Count (150-450) k/uL Neutrophils # (1.3-7.7) k/uL Lymphocytes # (1.0-4.8) k/uL ABG pH (7.35-7.45) ABG pO2 (83-108) mmHg ABG HCO3 (21-25) mmol/L ABG O2 Saturation (94-97) % Chloride (98-107) mmol/L Carbon Dioxide (22-30) mmol/L BUN (9-20) mg/dL Creatinine (0.66-1.25) mg/dL POC Glucose (mg/dL) 128 H 124 H 102 H (75-99) mg/dL Magnesium (1.6-2.3) mg/dL ALT (4-49) U/L Total Protein (6.3-8.2) g/dL Albumin (3.5-5.0) g/dL 08/07/20 08/07/20 08/07/20 Range/Units 01:16 02:52 04:23 WBC (3.8-10.6) k/uL RBC (4.30-5.90) m/uL Hgb (13.0-17.5) gm/dL Hct (39.0-53.0) % RDW (11.5-15.5) % Plt Count (150-450) k/uL Neutrophils # (1.3-7.7) k/uL Lymphocytes # (1.0-4.8) k/uL ABG pH 7.30 L (7.35-7.45) ABG pO2 130 H (83-108) mmHg ABG HCO3 20 L (21-25) mmol/L ABG O2 Saturation 99.9 H (94-97) % Chloride (98-107) mmol/L Carbon Dioxide (22-30) mmol/L BUN (9-20) mg/dL Creatinine (0.66-1.25) mg/dL POC Glucose (mg/dL) 152 H 125 H (75-99) mg/dL Magnesium (1.6-2.3) mg/dL ALT (4-49) U/L Total Protein (6.3-8.2) g/dL Albumin (3.5-5.0) g/dL 08/07/20 08/07/20 08/07/20 Range/Units 04:31 04:31 06:15 WBC 11.6 H (3.8-10.6) k/uL RBC 2.46 L (4.30-5.90) m/uL Hgb 7.6 L (13.0-17.5) gm/dL Hct 24.5 L (39.0-53.0) % RDW 18.3 H (11.5-15.5) % Plt Count 105 L (150-450) k/uL Neutrophils # 10.5 H (1.3-7.7) k/uL Lymphocytes # 0.4 L (1.0-4.8) k/uL ABG pH (7.35-7.45) ABG pO2 (83-108) mmHg ABG HCO3 (21-25) mmol/L ABG O2 Saturation (94-97) % Chloride 114 H (98-107) mmol/L Carbon Dioxide 21 L (22-30) mmol/L BUN 83 H (9-20) mg/dL Creatinine 2.19 H (0.66-1.25) mg/dL POC Glucose (mg/dL) 121 H (75-99) mg/dL Magnesium 2.4 H (1.6-2.3) mg/dL ALT 138 H (4-49) U/L Total Protein 4.5 L (6.3-8.2) g/dL Albumin 2.1 L (3.5-5.0) g/dL 12/21/20 12/21/20 12/21/20 Range/Units 07:10 08:15 09:05 WBC (3.8-10.6) k/uL RBC (4.30-5.90) m/uL Hgb (13.0-17.5) gm/dL Hct (39.0-53.0) % RDW (11.5-15.5) % Plt Count (150-450) k/uL Neutrophils # (1.3-7.7) k/uL Lymphocytes # (1.0-4.8) k/uL ABG pH (7.35-7.45) ABG pO2 (83-108) mmHg ABG HCO3 (21-25) mmol/L ABG O2 Saturation (94-97) % Chloride (98-107) mmol/L Carbon Dioxide (22-30) mmol/L BUN (9-20) mg/dL Creatinine (0.66-1.25) mg/dL POC Glucose (mg/dL) 146 H 126 H 106 H (75-99) mg/dL Magnesium (1.6-2.3) mg/dL ALT (4-49) U/L Total Protein (6.3-8.2) g/dL Albumin (3.5-5.0) g/dL Microbiology - Last 24 Hours (Table) 08/02/20 21:48 Blood Culture - Preliminary Blood No Growth after 96 hours 08/02/20 19:25 Blood Culture - Preliminary Blood No Growth after 96 hours Assessment and Plan Plan: Assessment: 1. Acute kidney injury secondary to hemodynamic ATN. No hydronephrosis noted on computed tomography scan. No proteinuria on UA. Renal function stable. Nonoliguric. 2. Chronic kidney disease stage III with baseline creatinine in the range of 1.2-1.5 secondary to nephrosclerosis. UA from June 2020 was benign. 3. Coronary artery disease status post 2 vessel CABG on July 18. 4. Hypervolemic hyponatremia. Improved with diuresis. 5. Bowel ischemia status post exploratory laparotomy and resection. Underwent another exploratory laparotomy on August 02 with ileostomy. 6. Diabetes mellitus. 7. Volume overload. Improving with diuresis. 8. Hypokalemia secondary to diuresis. Status post placement. 9. A. fib maintained on amiodarone drip. 10. Anemia of chronic kidney disease and post-cabg. Status post blood transfusion this admission. Plan: Maintain TPN per surgical recommendations. Avoid nephrotoxins. Continue to monitor renal function and urine output. Wean FiO2 and vasopressors. Monitor off diuretics. Urine output excellent.
--- NOTE | 2020-08-07 10:01 | PN ---
PROGRESS NOTE Francisco Tinoco is a 80-year-old gentleman who has known CAD and has had bypass surgery, postop atrial fibrillation, peritoneum, GI bleed and small bowel resection. He has had atrial fibrillation but thought not to be a candidate for anticoagulation because of GI bleed. On exam, heart rate is 60 beats per minute, blood pressure is 111/40, respiratory rate is 25. Patient is mechanically ventilated. Chest exam reveals diminished air entry with occasional rhonchi. Heart exam reveals first and second heart sounds. No gallop. Exam of extremities did not reveal any edema. LABS: Show a hemoglobin of 7.6, platelet count is 105. Potassium is 4.4 creatinine is 2. Triglycerides are 54. ASSESSMENT: CAD, status post CABG, history of GI bleed, paroxysmal atrial fibrillation, respiratory failure. PLAN: Continue with the amiodarone drip that he is on along with aspirin. He is not a candidate for long-term anticoagulation and will continue current therapy. MMODL / IJN: [id number] /
[2020-08-07 10:08] LABS: Glucose,Whole Blood 115 mg/dL (75-99)
[2020-08-07 11:24] LABS: Glucose,Whole Blood 157 mg/dL (75-99)
--- NOTE | 2020-08-07 11:33 | P.PN ---
Subjective Progress Note Date: 08/07/20 Principal diagnosis: Coronary artery disease, status post three-vessel bypass grafting 79-year-old white male patient with past medical history of hypertension, hyperlipidemia, moderate to severe COPD with the baseline FEV1 of 56% of predicted who came in on 07/18/2020 for elective two-vessel bypass grafting with PABLO to LAD, and SVG to the PDA. He was seen in the intensive care unit following surgery, patient was successfully weaned and extubated from mechanical ventilator and under 6 hours following his OR exit, is currently awake and alert, sitting in the chair, he is currently on 2 L of oxygen, his pulse ox is 98%, hemodynamically he stable, blood pressure is 106/51, PA pressures 35/11, CVP is 8, no fever or chills, IV fluids including the 0.9 normal saline at a ra te of 30 ML per hour, insulin is 4.5 units per hour, no vasoactive drips. Today's chest x-ray shows a pneumoperitoneum with lucency present underneath the right hemidiaphragm. He has left pleural and mediastinal chest tube, and there has been 500 mL of serosanguineous output from the left pleural and 350 mL from the mediastinal chest tube in the last 24 hours. Is having some mild discomfort under the right rib cage, but no acute distress, abdomen is distended but soft, he is hemodynamically stable, he is in sinus mechanism, no nausea vomiting or diarrhea. CT of the abdomen and pelvis is pending today's labs have been reviewed, showing white blood cell count of 11.9, hemoglobin of 9, sodium is 133, the rest of the electrolytes were within normal limits, B1 is 25 creatinine is 1.18 On 07/21/2020 patient seen in follow-up in the intensive care unit, today is postoperative day 3 status post three-vessel coronary artery bypass grafting, (patient became more short of breath, wheezy, patient has a known history of moderately severe COPD/emphysema, we started him on IV Solu-Medrol, and Pulmicort and Perforomist were added. This morning she remains on 3 L of oxygen his pulse ox is 94-95%, hemodynamically he stable, he just on plan and was seen and rated 20 ML per hour, insulin is a 2.5 units per hour, today's chest x-ray showing slight increased bibasilar atelectasis or infiltrates. He thinks the breathing treatments in the steroids have significantly helped, breathing easier, he is achieving 500-750 on his incentive spirometer, not able to bring up any sputum yet. he is currently sitting up in a chair, in no acute distress, his incisional pain is fairly well-controlled, patient had another episode of A. fib with RVR last night, he is back in sinus rhythm with a controlled rate this morning. He received a dose of Lasix this morning. Chest tubes have been discontinued. On 07/31/2020 patient seen in follow-up in the intensive care unit. He is postoperative day 12 status post three-vessel bypass grafting, and postoperative day #7 status post exploratory laparotomy and small bowel resection, he is awake and alert, he was extubated yesterday to a BiPAP support, this morning he remains on BiPAP, pressures of 10 and 5, and FiO2 of 35%, and his pulse ox is 100%, hemodynamically he stable, he is A. fib on a monitor with a rate of 98 BPM, he is currently on 9.9 normal seen at a rate of 10 ML per hour, insulin is at 2 units per hour, amiodarone at 0.5 mg per hour, heparin is at weight-based protocol, and TPN is a 75 ML per hour. Today's chest x-ray shows a stable portable chest, with bibasilar infiltrates greater on the right. She remains on Lasix at 40 mg every 12 hours, and he is negative fluid balance negative, at - 645 ML over the last 24 hours. No fever or chills, appears to be normally swollen, we will plus edema in lower extremities, his labs have been reviewed, showing white blood cell count 15.1, hemoglobin of 8, sodium of 132, potassium is 3.5, chloride is 100, his BUN is 63, and a creatinine is 1.94, calcitonin is trending down, down to 1.41 from 3.53. He remains on Zosyn or antibiotic coverage for evidence of Pseudomonas in his sputum culture. His NG tube in place to low intermittent suction, and there has been about 400 mL of bilious output in the last 24 hours, patient is passing gas but has not had any bowel movement yet. Surgical services are following. On 08/07/2020 patient seen in follow-up in the intensive care unit. This is postop day #20, status post 2 vessel bypass grafting, postop day #14, status post small bowel resection, and postop day #5 status post exploratory laparotomy and washout of peritoneal cavity and ileostomy with small bowel resection. Patient remains intubated, sedated, on assist-control mode of ventilation with a rate of 24, tidal volume is 500, FiO2 40%, and PEEP of 5, despite his blood ga ses showed pO2 of 1:30, pCO2 41, and pH of 7.30, and FiO2 had since been dropped to 30%. Is currently on Precedex at 0.6 mics per kilo per minute, amiodarone at 0.25 mg/m, insulin is currently off, levo fed is currently at 1 rito per minute, and 0.9 normal saline at a rate of 20 ML per hour, he is receiving nutrition in the form of TPN at a rate of 75 ML per hour, yesterday patient was woken up and he had a half an hour of spontaneous breathing trials however it became very tachypneic after half an hour, and had to be placed on assist-control mode of ventilation and sedated. Today's chest x-ray shows stable appearance of bibasilar opacities. Vital signs have been stable overnight, no fever. No vasoactive drips. Current antibiotics include meropenem, daptomycin, and Eraxis. White count is trending down, and is down to 7.6 and today's labs, hemoglobin 7.6, sodium is 138, potassium is 4.4, chloride is 114, CO2 is 21, BUN is 83, and creatinine is 2.19. G-tube remains in place, and the amount of drainage from it has been decreasing, with only 350 ML over the last 24 hours. Abdomen is nontender, wound VAC is in place. Bowel sounds are auscultated but they are hypoactive, right lower abdomen ileostomy has not produced any sputum, and there is only liquid serosanguineous dark output from daily ostomy, no gas. Objective - Vital Signs Vital signs: Vital Signs Temp 98.2 F 08/07/20 08:00 Pulse 60 08/07/20 10:00 Resp 20 08/07/20 10:00 BP 113/67 08/07/20 10:00 Pulse Ox 99 08/07/20 10:00 Intake & Output 08/06/20 08/07/2020 18:59 06:59 18:59 Intake Total 2296.379 8052.426 1206.968 Output Total 1260 1360 375 Balance 218.999 788.426 831.968 Weight 107.7 kg Intake: IV 4157 408 3005 Anidulafungin 200 mg In 130 Sodium Chloride 0.9% 200 ml @ 84 mls/hr IVPB ONCE ONE Rx#:[id number] DAPTOmycin 650 mg In 50 Sodium Chloride 0.9% 50 ml @ 100 mls/hr IVPB Q48H [facility] Rx#:[id number] Sodium Chloride 0.9% 1, 200 20 60 000 ml @ 20 mls/hr IV . Q24H [facility] Rx#:[id number] TPN 825 825 978 pressure bag 33 36 9 Intake, IV Titration 671.342 1477.426 159.968 Amount Amiodarone 300 mg In 250 Dextrose 5% in Water 250 ml @ 0.25 MG/MIN 12.5 mls /hr IV .Q20H [facility] Rx#: [id number] Dexmedetomidine/0.9% NaCl 32.762 (Pmx) 400 mcg In Empty Bag 1 bag @ Titrate IV . Q0M [facility] Rx#:[id number] Dexmedetomidine/0.9% NaCl 100 (Pmx) 400 mcg In Empty Bag 1 bag @ Titrate IV . Q0M [facility] Rx#:[id number] Insulin Regular 100 unit 106.068 58.676 17.292 In Sodium Chloride 0.9% 100 ml @ Per Protocol IV .Q0M [facility] Rx#:[id number] Mvi, Adult No.4 with Vit 958.75 K 10 ml Trace (Conc-1Ml/ Dose) 1 ml Parenteral Electrolytes 20 ml Sodium Acetate 30 meq Potassium Acetate 20 meq In Amino Acids 5 %/Dextrose 20 % 1 ,000 ml @ 75 mls/hr IV . BY DURATION [facility] Rx#: [id number] Norepinephrine 8 mg In 2.169 142.676 Sodium Chloride 0.9% 250 ml @ 0.05 MCG/KG/MIN 10. 846 mls/hr IV .[id number] [facility] Rx#:[id number] Output: Gastric Drainage 250 100 Urine 1010 1260 375 Emesis 0 Other: Voiding Method Indwelling Catheter Indwelling Catheter Indwelling Catheter # Voids 0 ABP, PAP, CO, CI - Last Documented Arterial Blood Pressure 115/45 Pulmonary Artery Pressure 33/14 Cardiac Output 6.7 Cardiac Index 3.1 - Exam GENERAL EXAM: Sedated, 79-year-old, white male, intubated, on assist-control mode of ventilation with FiO2 of 40%, and PEEP of 5. HEAD: Normocephalic/atraumatic. EYES: Normal reaction of pupils, equal size. Conjunctiva pink, sclera white. NOSE: Clear with pink turbinates. THROAT: No erythema or exudates. NECK: No masses, no JVD, no thyroid enlargement, no adenopathy. CHEST: No chest wall deformity. Symmetrical expansion. Sternal incision is clean dry and intact, chest tube sites clean dry and intact LUNGS: Equal air entry with no crackles, wheeze, rhonchi or dullness. CVS: irregular rate and rhythm, normal S1 and S2, no gallops, no murmurs, no rubs ABDOMEN: Soft, nontender. No hepatosplenomegaly, normal bowel sounds, no guarding or rigidity. Abdominal incision with a wound VAC in place. Right lower abdominal ileostomy with no gas, only liquid dark serosanguineous output, no stool EXTREMITIES: No clubbing, mild generalized edema, no cyanosis, 2+ pulses and upper and lower extremities. MUSCULOSKELETAL: Muscle strength and tone normal. SPINE: No scoliosis or deformity SKIN: No rashes CENTRAL NERVOUS SYSTEM: Sedated, intubated. No focal deficits, tone is normal in all 4 extremities. - Labs CBC & Chem 7: 08/07/20 04:31 08/07/20 04:31 Labs: Abnormal Lab Results - Last 24 Hours (Table) 08/06/20 08/06/20 08/06/20 Range/Units 13:01 13:58 15:13 WBC (3.8-10.6) k/uL RBC (4.30-5.90) m/uL Hgb (13.0-17.5) gm/dL Hct (39.0-53.0) % RDW (11.5-15.5) % Plt Count (150-450) k/uL Neutrophils # (1.3-7.7) k/uL Lymphocytes # (1.0-4.8) k/uL ABG pH (7.35-7.45) ABG pO2 (83-108) mmHg ABG HCO3 (21-25) mmol/L ABG O2 Saturation (94-97) % Chloride (98-107) mmol/L Carbon Dioxide (22-30) mmol/L BUN (9-20) mg/dL Creatinine (0.66-1.25) mg/dL POC Glucose (mg/dL) 198 H 207 H 203 H (75-99) mg/dL Magnesium (1.6-2.3) mg/dL ALT (4-49) U/L Total Protein (6.3-8.2) g/dL Albumin (3.5-5.0) g/dL 08/06/20 08/06/20 08/06/20 Range/Units 16:02 17:08 17:55 WBC (3.8-10.6) k/uL RBC (4.30-5.90) m/uL Hgb (13.0-17.5) gm/dL Hct (39.0-53.0) % RDW (11.5-15.5) % Plt Count (150-450) k/uL Neutrophils # (1.3-7.7) k/uL Lymphocytes # (1.0-4.8) k/uL ABG pH (7.35-7.45) ABG pO2 (83-108) mmHg ABG HCO3 (21-25) mmol/L ABG O2 Saturation (94-97) % Chloride (98-107) mmol/L Carbon Dioxide (22-30) mmol/L BUN (9-20) mg/dL Creatinine (0.66-1.25) mg/dL POC Glucose (mg/dL) 216 H 155 H 131 H (75-99) mg/dL Magnesium (1.6-2.3) mg/dL ALT (4-49) U/L Total Protein (6.3-8.2) g/dL Albumin (3.5-5.0) g/dL 08/06/20 08/06/20 08/06/20 Range/Units 19:08 20:08 21:57 WBC (3.8-10.6) k/uL RBC (4.30-5.90) m/uL Hgb (13.0-17.5) gm/dL Hct (39.0-53.0) % RDW (11.5-15.5) % Plt Count (150-450) k/uL Neutrophils # (1.3-7.7) k/uL Lymphocytes # (1.0-4.8) k/uL ABG pH (7.35-7.45) ABG pO2 (83-108) mmHg ABG HCO3 (21-25) mmol/L ABG O2 Saturation (94-97) % Chloride (98-107) mmol/L Carbon Dioxide (22-30) mmol/L BUN (9-20) mg/dL Creatinine (0.66-1.25) mg/dL POC Glucose (mg/dL) 111 H 128 H 124 H (75-99) mg/dL Magnesium (1.6-2.3) mg/dL ALT (4-49) U/L Total Protein (6.3-8.2) g/dL Albumin (3.5-5.0) g/dL 08/06/20 08/07/20 08/07/20 Range/Units 23:35 01:16 02:52 WBC (3.8-10.6) k/uL RBC (4.30-5.90) m/uL Hgb (13.0-17.5) gm/dL Hct (39.0-53.0) % RDW (11.5-15.5) % Plt Count (150-450) k/uL Neutrophils # (1.3-7.7) k/uL Lymphocytes # (1.0-4.8) k/uL ABG pH (7.35-7.45) ABG pO2 (83-108) mmHg ABG HCO3 (21-25) mmol/L ABG O2 Saturation (94-97) % Chloride (98-107) mmol/L Carbon Dioxide (22-30) mmol/L BUN (9-20) mg/dL Creatinine (0.66-1.25) mg/dL POC Glucose (mg/dL) 102 H 152 H 125 H (75-99) mg/dL Magnesium (1.6-2.3) mg/dL ALT (4-49) U/L Total Protein (6.3-8.2) g/dL Albumin (3.5-5.0) g/dL 08/07/20 08/07/20 08/07/20 Range/Units 04:23 04:31 04:31 WBC 11.6 H (3.8-10.6) k/uL RBC 2.46 L (4.30-5.90) m/uL Hgb 7.6 L (13.0-17.5) gm/dL Hct 24.5 L (39.0-53.0) % RDW 18.3 H (11.5-15.5) % Plt Count 105 L (150-450) k/uL Neutrophils # 10.5 H (1.3-7.7) k/uL Lymphocytes # 0.4 L (1.0-4.8) k/uL ABG pH 7.30 L (7.35-7.45) ABG pO2 130 H (83-108) mmHg ABG HCO3 20 L (21-25) mmol/L ABG O2 Saturation 99.9 H (94-97) % Chloride 114 H (98-107) mmol/L Carbon Dioxide 21 L (22-30) mmol/L BUN 83 H (9-20) mg/dL Creatinine 2.19 H (0.66-1.25) mg/dL POC Glucose (mg/dL) (75-99) mg/dL Magnesium 2.4 H (1.6-2.3) mg/dL ALT 138 H (4-49) U/L Total Protein 4.5 L (6.3-8.2) g/dL Albumin 2.1 L (3.5-5.0) g/dL 08/07/20 08/07/20 08/07/20 Range/Units 06:15 07:10 08:15 WBC (3.8-10.6) k/uL RBC (4.30-5.90) m/uL Hgb (13.0-17.5) gm/dL Hct (39.0-53.0) % RDW (11.5-15.5) % Plt Count (150-450) k/uL Neutrophils # (1.3-7.7) k/uL Lymphocytes # (1.0-4.8) k/uL ABG pH (7.35-7.45) ABG pO2 (83-108) mmHg ABG HCO3 (21-25) mmol/L ABG O2 Saturation (94-97) % Chloride (98-107) mmol/L Carbon Dioxide (22-30) mmol/L BUN (9-20) mg/dL Creatinine (0.66-1.25) mg/dL POC Glucose (mg/dL) 121 H 146 H 126 H (75-99) mg/dL Magnesium (1.6-2.3) mg/dL ALT (4-49) U/L Total Protein (6.3-8.2) g/dL Albumin (3.5-5.0) g/dL 08/07/20 08/07/20 Range/Units 09:05 10:07 WBC (3.8-10.6) k/uL RBC (4.30-5.90) m/uL Hgb (13.0-17.5) gm/dL Hct (39.0-53.0) % RDW (11.5-15.5) % Plt Count (150-450) k/uL Neutrophils # (1.3-7.7) k/uL Lymphocytes # (1.0-4.8) k/uL ABG pH (7.35-7.45) ABG pO2 (83-108) mmHg ABG HCO3 (21-25) mmol/L ABG O2 Saturation (94-97) % Chloride (98-107) mmol/L Carbon Dioxide (22-30) mmol/L BUN (9-20) mg/dL Creatinine (0.66-1.25) mg/dL POC Glucose (mg/dL) 106 H 115 H (75-99) mg/dL Magnesium (1.6-2.3) mg/dL ALT (4-49) U/L Total Protein (6.3-8.2) g/dL Albumin (3.5-5.0) g/dL Microbiology - Last 24 Hours (Table) 08/02/20 21:48 Blood Culture - Preliminary Blood No Growth after 96 hours 08/02/20 19:25 Blood Culture - Preliminary Blood No Growth after 96 hours Assessment and Plan Plan: Assessment: #1. Symptomatic coronary artery disease, status post two-vessel coronary artery bypass grafting with PABLO to the LAD, SVG to the PDA, on 07/18/2020, postope rative day #20 #2. Postoperative atrial fibrillation with rapid ventricular response requiring amiodarone and metoprolol, currently in sinus mechanism, remains off anticoagulation in view of recent history of bleeding at the anastomosis site of the small bowel resection. Today's hemoglobin is 7.6 on 08/07/2020 #3. Acute ischemic small bowel, status post exploratory laparotomy and small bowel resection, on 07/24/2020, today is postoperative day #14, patient remains on TPN for nutritional support. #4. Status post exploratory laparotomy, washout of peritoneal cavity, and ileostomy with small bowel resection on 08/02/2020 for intraperitoneal bleeding, today's postoperative day #5 #5. Acute hypoxic respiratory failure following bowel surgery, patient was extubated after his original bypass surgery on 07/18/2020, however developed ischemic small bowel, and required intubation on 07/24/2020, was extubated on 07/30/2020 to BiPAP support, and reintubated again on 08/02/2020 for reexpl oration laparotomy for intraperitoneal bleeding #6. Small atelectatic/pleural effusions involving both lung bases in addition to a small to moderate bilateral pleural effusion #7. Evidence of Pseudomonas in the sputum culture, patient is covered with Zosyn for antibiotic coverage, repeat sputum culture on 08/03/2022 showed Radha albicans, and patient is on Eraxis, Zosyn, Daptomycin #8. History of coronary artery disease with previous stent placement #9. History of hypertension #10. History of hyperlipidemia #11. Acute kidney injury #12. COPD moderate to severe with preop FEV1 of 53% of predicted #13. 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 Chronic kidney disease stage III at baseline #15. Diabetes mellitus type 2 #16. Postoperative acute blood loss anemia, expected outcome of open heart surgery, and two explor. laparotomy. #17. Postoperative paroxysmal A. fib, patient has had 2 episodes of A. fib with RVR in the postoperative period #18. Hypothyroidism status post partial thyroidectomy Plan: Proceed with PSV trial, with pressure support of 12, and CPAP or half an hour, obtain a blood gas and weaning parameters. Continue with antibiotics per ID service recommendations, vital signs are stable, no fever, weight blood cell count is trending down. Wean vasopressors, remains calm we'll discontinue the Precedex. GI and DVT prophylaxis. Renal profile is relatively stable, patient is making adequate urine output. nephrology following. We will attempt to wean and extubate the patient today. Continue to closely monitor in intensive care unit I performed a history & physical examination of the patient and discussed their management with my nurse practitioner, Cheli Kendrick. I reviewed the nurse practitioner's note and agree with the documented findings and plan of care. Lung sounds are positive for diminished throughout the lung valdez. The findings and the impression was discussed with the patient. I attest to the documentation by the nurse practitioner. Time with Patient: Greater than 30
[2020-08-07 12:11] LABS: Glucose,Whole Blood 161 mg/dL (75-99)
--- NOTE | 2020-08-07 12:36 | P.PN ---
Subjective Progress Note Date: 08/07/20 CHIEF COMPLAINT: Status post CABG 2 vessels HISTORY OF PRESENT ILLNESS: Patient remains in the ICU and is intubated and sedated. He is currently on Precedex. Also, remains on Levophed. He is on amiodarone for A. fib. He is on TPN for nutrition support. He had a temp of 100.3 yesterday morning. Currently afebrile. WBC 11.6 Hgb 7.6 creatinine 2.19 patient is undergoing weaning trial today from vent. PHYSICAL EXAM: VITAL SIGNS: Reviewed. GENERAL: Well-developed in no acute distress. HEENT: No sclera icterus. Extraocular movements grossly intact. Moist buccal mucosa. Head is atraumatic, normocephalic. ABDOMEN: Soft. Abdominal incision with wound VAC in place. Ileostomy right side of abdomen with minimal drainage NEUROLOGIC: Intubated and sedated ASSESSMENT: 1. Intraperitoneal hemorrhage status post exploratory laparotomy, washout of peritoneal cavity and ileostomy on 08/02/2020 2. Ischemic small bowel with evidence of pneumatosis status post small bowel resection on 07/24/2020 3. Acute hypoxic respiratory failure requiring mechanical ventilation 4. symptomatic triple-vessel coronary artery disease status post 2 vessel coronary bypass grafting surgery 5. Diabetes mellitus type 2 PLAN: -Continue wound VAC -Continue antibiotics -Continue supportive care -DVT prophylaxis subcu Heparin and GI prophylaxis Protonix Physician Ager Operator note has been reviewed by physician. Signing provider agrees with the documented findings, assessment, and plan of care. Objective - Vital Signs Vital signs: Vital Signs Temp 97.6 F 08/07/20 12:00 Pulse 57 L 08/07/20 12:00 Resp 27 H 08/07/20 12:00 BP 113/67 08/07/20 10:00 Pulse Ox 98 08/07/20 12:00 Intake & Output 08/06/20 08/07/20 08/07/20 18:59 06:59 18:59 Intake Total 0599.423 9273.426 1573.286 Output Total 1260 1360 535 Balance 218.999 028.549 0184.286 Weight 107.7 kg Intake: IV 3463 422 4774 Anidulafungin 200 mg In 130 Sodium Chloride 0.9% 200 ml @ 84 mls/hr IVPB ONCE ONE Rx#:[id number] DAPTOmycin 650 mg In 50 Sodium Chloride 0.9% 50 ml @ 100 mls/hr IVPB Q48H [facility] Rx#:[id number] Sodium Chloride 0.9% 1, 200 20 100 000 ml @ 20 mls/hr IV . Q24H [facility] Rx#:[id number] TPN 696 300 6412 pressure bag 33 36 15 Intake, IV Titration 236.986 9078.426 330.286 Amount Amiodarone 300 mg In 250 Dextrose 5% in Water 250 ml @ 0.25 MG/MIN 12.5 mls /hr IV .Q20H [facility] Rx#: [id number] Dexmedetomidine/0.9% NaCl 32.762 (Pmx) 400 mcg In Empty Bag 1 bag @ Titrate IV . Q0M [facility] Rx#:[id number] Dexmedetomidine/0.9% NaCl 100 165.518 (Pmx) 400 mcg In Empty Bag 1 bag @ Titrate IV . Q0M [facility] Rx#:[id number] Insulin Regular 100 unit 106.068 58.676 22.092 In Sodium Chloride 0.9% 100 ml @ Per Protocol IV .Q0M [facility] Rx#:[id number] Mvi, Adult No.4 with Vit 958.75 K 10 ml Trace (Conc-1Ml/ Dose) 1 ml Parenteral Electrolytes 20 ml Sodium Acetate 30 meq Potassium Acetate 20 meq In Amino Acids 5 %/Dextrose 20 % 1 ,000 ml @ 75 mls/hr IV . BY DURATION [facility] Rx#: [id number] Norepinephrine 8 mg In 2.169 142.676 Sodium Chloride 0.9% 250 ml @ 0.05 MCG/KG/MIN 10. 846 mls/hr IV .[id number] [facility] Rx#:[id number] Output: Gastric Drainage 250 100 Urine 1010 1260 535 Emesis 0 Other: Voiding Method Indwelling Catheter Indwelling Catheter Indwelling Catheter # Voids 0 ABP, PAP, CO, CI - Last Documented Arterial Blood Pressure 102/39 Pulmonary Artery Pressure 33/14 Cardiac Output 6.7 Cardiac Index 3.1 - Labs CBC & Chem 7: 08/07/20 04:31 08/07/20 04:31 Labs: Abnormal Lab Results - Last 24 Hours (Table) 08/06/20 08/06/20 08/06/20 Range/Units 13:01 13:58 15:13 WBC (3.8-10.6) k/uL RBC (4.30-5.90) m/uL Hgb (13.0-17.5) gm/dL Hct (39.0-53.0) % RDW (11.5-15.5) % Plt Count (150-450) k/uL Neutrophils # (1.3-7.7) k/uL Lymphocytes # (1.0-4.8) k/uL ABG pH (7.35-7.45) ABG pO2 (83-108) mmHg ABG HCO3 (21-25) mmol/L ABG O2 Saturation (94-97) % Chloride (98-107) mmol/L Carbon Dioxide (22-30) mmol/L BUN (9-20) mg/dL Creatinine (0.66-1.25) mg/dL POC Glucose (mg/dL) 198 H 207 H 203 H (75-99) mg/dL Magnesium (1.6-2.3) mg/dL ALT (4-49) U/L Total Protein (6.3-8.2) g/dL Albumin (3.5-5.0) g/dL 08/06/20 08/06/20 08/06/20 Range/Units 16:02 17:08 17:55 WBC (3.8-10.6) k/uL RBC (4.30-5.90) m/uL Hgb (13.0-17.5) gm/dL Hct (39.0-53.0) % RDW (11.5-15.5) % Plt Count (150-450) k/uL Neutrophils # (1.3-7.7) k/uL Lymphocytes # (1.0-4.8) k/uL ABG pH (7.35-7.45) ABG pO2 (83-108) mmHg ABG HCO3 (21-25) mmol/L ABG O2 Saturation (94-97) % Chloride (98-107) mmol/L Carbon Dioxide (22-30) mmol/L BUN (9-20) mg/dL Creatinine (0.66-1.25) mg/dL POC Glucose (mg/dL) 216 H 155 H 131 H (75-99) mg/dL Magnesium (1.6-2.3) mg/dL ALT (4-49) U/L Total Protein (6.3-8.2) g/dL Albumin (3.5-5.0) g/dL 08/06/20 08/06/20 08/06/20 Range/Units 19:08 20:08 21:57 WBC (3.8-10.6) k/uL RBC (4.30-5.90) m/uL Hgb (13.0-17.5) gm/dL Hct (39.0-53.0) % RDW (11.5-15.5) % Plt Count (150-450) k/uL Neutrophils # (1.3-7.7) k/uL Lymphocytes # (1.0-4.8) k/uL ABG pH (7.35-7.45) ABG pO2 (83-108) mmHg ABG HCO3 (21-25) mmol/L ABG O2 Saturation (94-97) % Chloride (98-107) mmol/L Carbon Dioxide (22-30) mmol/L BUN (9-20) mg/dL Creatinine (0.66-1.25) mg/dL POC Glucose (mg/dL) 111 H 128 H 124 H (75-99) mg/dL Magnesium (1.6-2.3) mg/dL ALT (4-49) U/L Total Protein (6.3-8.2) g/dL Albumin (3.5-5.0) g/dL 08/06/20 08/07/20 08/07/20 Range/Units 23:35 01:16 02:52 WBC (3.8-10.6) k/uL RBC (4.30-5.90) m/uL Hgb (13.0-17.5) gm/dL Hct (39.0-53.0) % RDW (11.5-15.5) % Plt Count (150-450) k/uL Neutrophils # (1.3-7.7) k/uL Lymphocytes # (1.0-4.8) k/uL ABG pH (7.35-7.45) ABG pO2 (83-108) mmHg ABG HCO3 (21-25) mmol/L ABG O2 Saturation (94-97) % Chloride (98-107) mmol/L Carbon Dioxide (22-30) mmol/L BUN (9-20) mg/dL Creatinine (0.66-1.25) mg/dL POC Glucose (mg/dL) 102 H 152 H 125 H (75-99) mg/dL Magnesium (1.6-2.3) mg/dL ALT (4-49) U/L Total Protein (6.3-8.2) g/dL Albumin (3.5-5.0) g/dL 08/07/20 08/07/20 08/07/20 Range/Units 04:23 04:31 04:31 WBC 11.6 H (3.8-10.6) k/uL RBC 2.46 L (4.30-5.90) m/uL Hgb 7.6 L (13.0-17.5) gm/dL Hct 24.5 L (39.0-53.0) % RDW 18.3 H (11.5-15.5) % Plt Count 105 L (150-450) k/uL Neutrophils # 10.5 H (1.3-7.7) k/uL Lymphocytes # 0.4 L (1.0-4.8) k/uL ABG pH 7.30 L (7.35-7.45) ABG pO2 130 H (83-108) mmHg ABG HCO3 20 L (21-25) mmol/L ABG O2 Saturation 99.9 H (94-97) % Chloride 114 H (98-107) mmol/L Carbon Dioxide 21 L (22-30) mmol/L BUN 83 H (9-20) mg/dL Creatinine 2.19 H (0.66-1.25) mg/dL POC Glucose (mg/dL) (75-99) mg/dL Magnesium 2.4 H (1.6-2.3) mg/dL ALT 138 H (4-49) U/L Total Protein 4.5 L (6.3-8.2) g/dL Albumin 2.1 L (3.5-5.0) g/dL 08/07/20 08/07/20 08/07/20 Range/Units 06:15 07:10 08:15 WBC (3.8-10.6) k/uL RBC (4.30-5.90) m/uL Hgb (13.0-17.5) gm/dL Hct (39.0-53.0) % RDW (11.5-15.5) % Plt Count (150-450) k/uL Neutrophils # (1.3-7.7) k/uL Lymphocytes # (1.0-4.8) k/uL ABG pH (7.35-7.45) ABG pO2 (83-108) mmHg ABG HCO3 (21-25) mmol/L ABG O2 Saturation (94-97) % Chloride (98-107) mmol/L Carbon Dioxide (22-30) mmol/L BUN (9-20) mg/dL Creatinine (0.66-1.25) mg/dL POC Glucose (mg/dL) 121 H 146 H 126 H (75-99) mg/dL Magnesium (1.6-2.3) mg/dL ALT (4-49) U/L Total Protein (6.3-8.2) g/dL Albumin (3.5-5.0) g/dL 08/07/20 08/07/20 08/07/20 Range/Units 09:05 10:07 11:23 WBC (3.8-10.6) k/uL RBC (4.30-5.90) m/uL Hgb (13.0-17.5) gm/dL Hct (39.0-53.0) % RDW (11.5-15.5) % Plt Count (150-450) k/uL Neutrophils # (1.3-7.7) k/uL Lymphocytes # (1.0-4.8) k/uL ABG pH (7.35-7.45) ABG pO2 (83-108) mmHg ABG HCO3 (21-25) mmol/L ABG O2 Saturation (94-97) % Chloride (98-107) mmol/L Carbon Dioxide (22-30) mmol/L BUN (9-20) mg/dL Creatinine (0.66-1.25) mg/dL POC Glucose (mg/dL) 106 H 115 H 157 H (75-99) mg/dL Magnesium (1.6-2.3) mg/dL ALT (4-49) U/L Total Protein (6.3-8.2) g/dL Albumin (3.5-5.0) g/dL 08/07/20 Range/Units 12:10 WBC (3.8-10.6) k/uL RBC (4.30-5.90) m/uL Hgb (13.0-17.5) gm/dL Hct (39.0-53.0) % RDW (11.5-15.5) % Plt Count (150-450) k/uL Neutrophils # (1.3-7.7) k/uL Lymphocytes # (1.0-4.8) k/uL ABG pH (7.35-7.45) ABG pO2 (83-108) mmHg ABG HCO3 (21-25) mmol/L ABG O2 Saturation (94-97) % Chloride (98-107) mmol/L Carbon Dioxide (22-30) mmol/L BUN (9-20) mg/dL Creatinine (0.66-1.25) mg/dL POC Glucose (mg/dL) 161 H (75-99) mg/dL Magnesium (1.6-2.3) mg/dL ALT (4-49) U/L Total Protein (6.3-8.2) g/dL Albumin (3.5-5.0) g/dL Microbiology - Last 24 Hours (Table) 08/02/20 21:48 Blood Culture - Preliminary Blood No Growth after 96 hours 08/02/20 19:25 Blood Culture - Preliminary Blood No Growth after 96 hours
[2020-08-07 13:09] LABS: Glucose,Whole Blood 156 mg/dL (75-99)
[2020-08-07 14:26] LABS: Glucose,Whole Blood 130 mg/dL (75-99)
[2020-08-07 15:12] LABS: Glucose,Whole Blood 123 mg/dL (75-99)
[2020-08-07 16:03] LABS: Glucose,Whole Blood 105 mg/dL (75-99)
--- NOTE | 2020-08-07 16:27 | P.PN ---
Subjective Progress Note Date: 08/07/20 Patient is awake and responds to commands. Patient seen and examined at bedside. Patient remains on vasopressors and amiodarone. I Objective - Vital Signs Vital signs: Vital Signs Temp 97.8 F 08/07/20 16:00 Pulse 61 08/07/20 16:21 Resp 26 H 08/07/20 16:21 BP 119/69 08/07/20 16:00 Pulse Ox 98 08/07/20 16:00 Intake & Output 08/06/20 08/07/20 08/07/20 18:59 06:59 18:59 Intake Total 9669.866 7056.426 2012.529 Output Total 1260 1360 1160 Balance 218.999 788.426 852.529 Weight 107.7 kg 107.7 kg Intake: IV 8995 199 6538 Anidulafungin 200 mg In 130 Sodium Chloride 0.9% 200 ml @ 84 mls/hr IVPB ONCE ONE Rx#:[id number] DAPTOmycin 650 mg In 50 Sodium Chloride 0.9% 50 ml @ 100 mls/hr IVPB Q48H [facility] Rx#:[id number] Sodium Chloride 0.9% 1, 200 20 180 000 ml @ 20 mls/hr IV . Q24H [facility] Rx#:[id number] TPN 568 472 1948 pressure bag 33 36 27 Intake, IV Titration 437.172 7230.426 377.529 Amount Amiodarone 300 mg In 250 Dextrose 5% in Water 250 ml @ 0.25 MG/MIN 12.5 mls /hr IV .Q20H [facility] Rx#: [id number] Dexmedetomidine/0.9% NaCl 32.762 (Pmx) 400 mcg In Empty Bag 1 bag @ Titrate IV . Q0M [facility] Rx#:[id number] Dexmedetomidine/0.9% NaCl 100 187.327 (Pmx) 400 mcg In Empty Bag 1 bag @ Titrate IV . Q0M [facility] Rx#:[id number] Insulin Regular 100 unit 106.068 58.676 47.526 In Sodium Chloride 0.9% 100 ml @ Per Protocol IV .Q0M [facility] Rx#:[id number] Mvi, Adult No.4 with Vit 958.75 K 10 ml Trace (Conc-1Ml/ Dose) 1 ml Parenteral Electrolytes 20 ml Sodium Acetate 30 meq Potassium Acetate 20 meq In Amino Acids 5 %/Dextrose 20 % 1 ,000 ml @ 75 mls/hr IV . BY DURATION [facility] Rx#: [id number] Norepinephrine 8 mg In 2.169 142.676 Sodium Chloride 0.9% 250 ml @ 0.05 MCG/KG/MIN 10. 846 mls/hr IV .[id number] [facility] Rx#:[id number] Output: Gastric Drainage 250 100 Urine 1010 1260 1160 Emesis 0 Other: Voiding Method Indwelling Catheter Indwelling Catheter Indwelling Catheter # Voids 0 ABP, PAP, CO, CI - Last Documented Arterial Blood Pressure 132/45 Pulmonary Artery Pressure 33/14 Cardiac Output 6.7 Cardiac Index 3.1 - Exam General: [toxic], [no distress], [appears at stated age] Derm: [warm], [dry] Head: [atraumatic], [normocephalic], [symmetric] Eyes: [EOMI], [no lid lag], [anicteric sclera] Mouth: [no lip lesion], [mucus membranes moist] Cardiovascular: [irreg], [no murmur], [positive posterior tibial pulse bilateral], Lungs: [CTA bilateral], [no rhonchi, no rales] , [no accessory muscle use] Abdominal: [soft], [ tender to palpation], [no guarding], [no appreciable organomegaly] Ext: [no gross muscle atrophy], [+2 edema], [no contractures] Neuro: [ CN II-XI grossly intact], [no focal neuro deficits] Psych: Response to community - Labs CBC & Chem 7: 08/07/20 04:31 08/07/20 04:31 Labs: Abnormal Lab Results - Last 24 Hours (Table) 08/06/20 08/06/20 08/06/20 Range/Units 17:08 17:55 19:08 WBC (3.8-10.6) k/uL RBC (4.30-5.90) m/uL Hgb (13.0-17.5) gm/dL Hct (39.0-53.0) % RDW (11.5-15.5) % Plt Count (150-450) k/uL Neutrophils # (1.3-7.7) k/uL Lymphocytes # (1.0-4.8) k/uL ABG pH (7.35-7.45) ABG pO2 (83-108) mmHg ABG HCO3 (21-25) mmol/L ABG O2 Saturation (94-97) % Chloride (98-107) mmol/L Carbon Dioxide (22-30) mmol/L BUN (9-20) mg/dL Creatinine (0.66-1.25) mg/dL POC Glucose (mg/dL) 155 H 131 H 111 H (75-99) mg/dL Magnesium (1.6-2.3) mg/dL ALT (4-49) U/L Total Protein (6.3-8.2) g/dL Albumin (3.5-5.0) g/dL 08/06/20 08/06/20 08/06/20 Range/Units 20:08 21:57 23:35 WBC (3.8-10.6) k/uL RBC (4.30-5.90) m/uL Hgb (13.0-17.5) gm/dL Hct (39.0-53.0) % RDW (11.5-15.5) % Plt Count (150-450) k/uL Neutrophils # (1.3-7.7) k/uL Lymphocytes # (1.0-4.8) k/uL ABG pH (7.35-7.45) ABG pO2 (83-108) mmHg ABG HCO3 (21-25) mmol/L ABG O2 Saturation (94-97) % Chloride (98-107) mmol/L Carbon Dioxide (22-30) mmol/L BUN (9-20) mg/dL Creatinine (0.66-1.25) mg/dL POC Glucose (mg/dL) 128 H 124 H 102 H (75-99) mg/dL Magnesium (1.6-2.3) mg/dL ALT (4-49) U/L Total Protein (6.3-8.2) g/dL Albumin (3.5-5.0) g/dL 08/07/20 08/07/20 08/07/20 Range/Units 01:16 02:52 04:23 WBC (3.8-10.6) k/uL RBC (4.30-5.90) m/uL Hgb (13.0-17.5) gm/dL Hct (39.0-53.0) % RDW (11.5-15.5) % Plt Count (150-450) k/uL Neutrophils # (1.3-7.7) k/uL Lymphocytes # (1.0-4.8) k/uL ABG pH 7.30 L (7.35-7.45) ABG pO2 130 H (83-108) mmHg ABG HCO3 20 L (21-25) mmol/L ABG O2 Saturation 99.9 H (94-97) % Chloride (98-107) mmol/L Carbon Dioxide (22-30) mmol/L BUN (9-20) mg/dL Creatinine (0.66-1.25) mg/dL POC Glucose (mg/dL) 152 H 125 H (75-99) mg/dL Magnesium (1.6-2.3) mg/dL ALT (4-49) U/L Total Protein (6.3-8.2) g/dL Albumin (3.5-5.0) g/dL 08/07/20 08/07/20 08/07/20 Range/Units 04:31 04:31 06:15 WBC 11.6 H (3.8-10.6) k/uL RBC 2.46 L (4.30-5.90) m/uL Hgb 7.6 L (13.0-17.5) gm/dL Hct 24.5 L (39.0-53.0) % RDW 18.3 H (11.5-15.5) % Plt Count 105 L (150-450) k/uL Neutrophils # 10.5 H (1.3-7.7) k/uL Lymphocytes # 0.4 L (1.0-4.8) k/uL ABG pH (7.35-7.45) ABG pO2 (83-108) mmHg ABG HCO3 (21-25) mmol/L ABG O2 Saturation (94-97) % Chloride 114 H (98-107) mmol/L Carbon Dioxide 21 L (22-30) mmol/L BUN 83 H (9-20) mg/dL Creatinine 2.19 H (0.66-1.25) mg/dL POC Glucose (mg/dL) 121 H (75-99) mg/dL Magnesium 2.4 H (1.6-2.3) mg/dL ALT 138 H (4-49) U/L Total Protein 4.5 L (6.3-8.2) g/dL Albumin 2.1 L (3.5-5.0) g/dL 08/07/20 08/07/20 08/07/20 Range/Units 07:10 08:15 09:05 WBC (3.8-10.6) k/uL RBC (4.30-5.90) m/uL Hgb (13.0-17.5) gm/dL Hct (39.0-53.0) % RDW (11.5-15.5) % Plt Count (150-450) k/uL Neutrophils # (1.3-7.7) k/uL Lymphocytes # (1.0-4.8) k/uL ABG pH (7.35-7.45) ABG pO2 (83-108) mmHg ABG HCO3 (21-25) mmol/L ABG O2 Saturation (94-97) % Chloride (98-107) mmol/L Carbon Dioxide (22-30) mmol/L BUN (9-20) mg/dL Creatinine (0.66-1.25) mg/dL POC Glucose (mg/dL) 146 H 126 H 106 H (75-99) mg/dL Magnesium (1.6-2.3) mg/dL ALT (4-49) U/L Total Protein (6.3-8.2) g/dL Albumin (3.5-5.0) g/dL 08/07/20 08/07/20 08/07/20 Range/Units 10:07 11:23 12:10 WBC (3.8-10.6) k/uL RBC (4.30-5.90) m/uL Hgb (13.0-17.5) gm/dL Hct (39.0-53.0) % RDW (11.5-15.5) % Plt Count (150-450) k/uL Neutrophils # (1.3-7.7) k/uL Lymphocytes # (1.0-4.8) k/uL ABG pH (7.35-7.45) ABG pO2 (83-108) mmHg ABG HCO3 (21-25) mmol/L ABG O2 Saturation (94-97) % Chloride (98-107) mmol/L Carbon Dioxide (22-30) mmol/L BUN (9-20) mg/dL Creatinine (0.66-1.25) mg/dL POC Glucose (mg/dL) 115 H 157 H 161 H (75-99) mg/dL Magnesium (1.6-2.3) mg/dL ALT (4-49) U/L Total Protein (6.3-8.2) g/dL Albumin (3.5-5.0) g/dL 08/07/20 08/07/20 08/07/20 Range/Units 13:08 14:24 15:11 WBC (3.8-10.6) k/uL RBC (4.30-5.90) m/uL Hgb (13.0-17.5) gm/dL Hct (39.0-53.0) % RDW (11.5-15.5) % Plt Count (150-450) k/uL Neutrophils # (1.3-7.7) k/uL Lymphocytes # (1.0-4.8) k/uL ABG pH (7.35-7.45) ABG pO2 (83-108) mmHg ABG HCO3 (21-25) mmol/L ABG O2 Saturation (94-97) % Chloride (98-107) mmol/L Carbon Dioxide (22-30) mmol/L BUN (9-20) mg/dL Creatinine (0.66-1.25) mg/dL POC Glucose (mg/dL) 156 H 130 H 123 H (75-99) mg/dL Magnesium (1.6-2.3) mg/dL ALT (4-49) U/L Total Protein (6.3-8.2) g/dL Albumin (3.5-5.0) g/dL 08/07/20 Range/Units 16:02 WBC (3.8-10.6) k/uL RBC (4.30-5.90) m/uL Hgb (13.0-17.5) gm/dL Hct (39.0-53.0) % RDW (11.5-15.5) % Plt Count (150-450) k/uL Neutrophils # (1.3-7.7) k/uL Lymphocytes # (1.0-4.8) k/uL ABG pH (7.35-7.45) ABG pO2 (83-108) mmHg ABG HCO3 (21-25) mmol/L ABG O2 Saturation (94-97) % Chloride (98-107) mmol/L Carbon Dioxide (22-30) mmol/L BUN (9-20) mg/dL Creatinine (0.66-1.25) mg/dL POC Glucose (mg/dL) 105 H (75-99) mg/dL Magnesium (1.6-2.3) mg/dL ALT (4-49) U/L Total Protein (6.3-8.2) g/dL Albumin (3.5-5.0) g/dL Microbiology - Last 24 Hours (Table) 08/02/20 21:48 Blood Culture - Preliminary Blood No Growth after 96 hours 08/02/20 19:25 Blood Culture - Preliminary Blood No Growth after 96 hours Assessment and Plan Assessment: 80 year old male with past medical history noted below who presented for symptomatic CAD and underwent 2v CABG with post-operative course complicated by respiratory failure secondary to COPD exacerbation, blood loss anemia, paroxysmal atrial fibrillation with RVR, metabolic derangements, and ischemic bowel. VDRF multifactorial due to COPD exacerbation and septic shock as consequence from bowel ischemia. Grew Pseudomonas and Radha in the sputum. Was on zosyn which was changed to meropenem by ID, anidulafungin and daptomycin were added by ID due to worsening leukocytosis and hypotension. On norepinephren currently CAD s/p CABG with 2v bypass, PABLO to LAD, and SVG to posterior descending coronary artery -Status post coronary artery bypass grafting -Cardiothoracic and cardiology following -On aspirin DM 2 - Currently on insulin drip - A1C from 06/21/2020 5.2 Small Bowel Ischemia - s/p resection - Finished 7 days course of IV Zosyn A-fib with RVR On amio and eliquis On metoprolol BID CONNOR on CKD stage III Baseline cr 1.4-1.5 Likely cardiorenal syndrome, patient received contrast earlier in the admission. Avoid nephrotoxic meds Nephrology is following Pneumoperitoneum suspect secondary to mediastinal chest tubes -Tube d/melody -Resolved. COPD with acute exacerbation - On DuoNeb schedule Coronary artery disease -Status post coronary artery bypass grafting -Cardiothoracic and cardiology following HTN - meds per CT surgery - follow BP Hypothyroidism status post partial thyroidectomy - synthroid Morbid obesity with BMI 30.5 -Outpatient structured weight loss Prognosis is poor
[2020-08-07 17:21] LABS: Glucose,Whole Blood 129 mg/dL (75-99)
[2020-08-07 18:13] LABS: Glucose,Whole Blood 140 mg/dL (75-99)
[2020-08-07] MEDS: 1: MVI, ADULT NO.4 WITH VIT K 10 ML, TRACE (CONC-1ML/DOSE) 1 ML, SODIUM ACETATE 50 MEQ, IV SCH ×10 (18:17→18:19)
[2020-08-07 19:07] LABS: Glucose,Whole Blood 156 mg/dL (75-99)
[2020-08-07 21:34] LABS: Glucose,Whole Blood 136 mg/dL (75-99)
[2020-08-07 22:27] LABS: Glucose,Whole Blood 128 mg/dL (75-99)
--- NOTE | 2020-08-07 22:44 | PN ---
PROGRESS NOTE DATE OF SERVICE: 08/07/2020 REASON FOR FOLLOWUP: Leukocytosis, ischemic bowel. INTERVAL HISTORY: The patient is currently afebrile. The patient is hemodynamically stable, off the pressor support. FiO2 is currently 30%. He is slowly waking up and is undergoing weaning parameters. Tolerating it so far. PHYSICAL EXAMINATION: Blood pressure 132/67, pulse of 82, temperature 97.9. General description is an elderly male lying in bed in no distress. RESPIRATORY SYSTEM: Unlabored breathing with decreased intensity of breath sounds. No wheeze. HEART: S1, S2. Regular rate and rhythm. ABDOMEN: Soft. No tenderness. EXTREMITIES: No edema of the feet. LABS: Hemoglobin is 7.6, white count 11.6 with BUN of 83, creatinine 2.19. DIAGNOSTIC IMPRESSION AND PLAN: Patient with elevated white count which is multifactorial in this patient who did have ischemic bowel laparotomy and resection of small bowel with ileostomy. in this patient whose overall white count responded to daptomycin and meropenem; to continue and monitor his clinical course closely. MMODL / IJN: [id number] /
[2020-08-07] MEDS: SODIUM CHLORIDE 0.9% 1,000 ML IV SCH (23:23)
[2020-08-07 23:30] LABS: Glucose,Whole Blood 127 mg/dL (75-99)
[2020-08-08] MEDS: DEXMEDETOMIDINE/0.9% NACL(PMX) 400 MCG in EMPTY BAG 1 BAG IV SCH ×2 (01:05→07:02)
[2020-08-08 01:09] LABS: Glucose,Whole Blood 125 mg/dL (75-99)
[2020-08-08 02:59] LABS: Glucose,Whole Blood 123 mg/dL (75-99)
[2020-08-08] MEDS: HYDROmorphone 1 MG/ML 1 ML SYRINGE IVP PRN ×6 (03:14→21:14)
[2020-08-08 03:57] LABS: Glucose,Whole Blood 128 mg/dL (75-99)
[2020-08-08 04:19] LABS: Ionized Calcium 5.9 mg/dL (4.5-5.3)
[2020-08-08 04:30] LABS: Albumin 2.1 g/dL (3.5-5.0); Calcium 8.6 mg/dL (8.4-10.2); Magnesium 2.2 mg/dL (1.6-2.3); Potassium 4.5 mmol/L (3.5-5.1); Total Bilirubin 0.7 mg/dL (0.2-1.3); Total Protein 4.5 g/dL (6.3-8.2)
[2020-08-08 04:46] LABS: ABG Base Excess -2.7 mmol/L; ABG HCO3 22 mmol/L (21-25); ABG Oxygen Saturation 99.3 % (94-97); ABG PCO2 38 mmHg (35-45); ABG PH 7.38 (7.35-7.45); ABG PO2 99 mmHg (83-108); ABG TCO2 24 mmol/L (19-24); Allen Test Performed? Yes
[2020-08-08] MEDS: MEROPENEM 1 GM in SODIUM CHLORIDE 0.9% 100 ML IVPB SCH ×2 (05:56→16:05)
[2020-08-08] MEDS: 1: MVI, ADULT NO.4 WITH VIT K 10 ML, TRACE (CONC-1ML/DOSE) 1 ML, SODIUM ACETATE 50 MEQ, IV SCH ×10 (05:56→18:41)
[2020-08-08 06:10] LABS: Glucose,Whole Blood 134 mg/dL (75-99)
[2020-08-08 07:03] LABS: Anisocytosis Slight; Basophils % (A) 0 %; Eosinophils % (A) 0 %; HCT 24.5 % (39.0-53.0); HGB 7.9 gm/dL (13.0-17.5); Hypochromasia Marked; Lymphocytes # (A) 0.4 k/uL (1.0-4.8); Lymphocytes % (A) 3 %; MCHC 32.2 g/dL (31.0-37.0); MCV 99.2 fL (80.0-100.0); Macrocytosis Slight; Mean Platelet Volume 8.2; Monocytes # (A) 0.5 k/uL (0-1.0); Monocytes % (A) 5 %; Neutrophils # (A) 9.1 k/uL (1.3-7.7); Neutrophils % (A) 89 %; Platelet Count 127 k/uL (150-450); Poikilocytosis Moderate; RBC 2.47 m/uL (4.30-5.90); RDW 17.8 % (11.5-15.5); WBC 10.2 k/uL (3.8-10.6)
--- NOTE | 2020-08-08 07:24 | XR ---
EXAMINATION TYPE: XR chest 1V portable DATE OF EXAM: 08/08/2020 COMPARISON: Chest x-ray 08/07/2020 HISTORY: Intubated TECHNIQUE: Single frontal view of the chest is obtained. FINDINGS: Endotracheal tube, NG tube, right-sided PICC line are again noted and are stable overlying appropriate positions. Apical lucency within the lungs suggests underlying bullous emphysema. Bibasi lar increased attenuation is present, the hemidiaphragms are obscured. Cardiac mediastinal silhouette is stable, prominence of pulmonary artery suggests pulmonary artery hypertension. Patient is post me terry sternotomy. IMPRESSION: Correlate for edema, pneumonia and associated effusions.
[2020-08-08] MEDS: HEPARIN SODIUM,PORCINE 5,000 UNIT/ML 1 ML VIAL SQ SCH ×3 (07:51→23:43)
[2020-08-08] MEDS: BUDESONIDE 1 MG/2 ML NEBU INHALATION SCH ×2 (08:15→20:01)
[2020-08-08] MEDS: IPRATROPIUM-ALBUTEROL 3 ML NEB INHALATION SCH ×4 (08:16→20:01)
[2020-08-08] MEDS: FORMOTEROL FUMARATE 20 MCG/2 ML NEBU INHALATION SCH ×2 (08:16→20:01)
[2020-08-08 08:17] LABS: Glucose,Whole Blood 197 mg/dL (75-99)
[2020-08-08] MEDS: ANIDULAFUNGIN 100 MG in SODIUM CHLORIDE 0.9% 100 ML IVPB SCH (08:25)
[2020-08-08] MEDS: PANTOPRAZOLE 40 MG/10 ML VIAL IVP SCH ×2 (08:29→20:31)
[2020-08-08] MEDS: LEVOTHYROXINE IVP 100 MCG/5 ML VIAL IV SCH (08:29)
[2020-08-08] MEDS: ASPIRIN 81 MG PO SCH (08:29)
[2020-08-08] MEDS: CHLORHEXIDINE GLUCONATE 15 ML CUP MUCOUS MEM SCH ×2 (08:29→20:24)
--- NOTE | 2020-08-08 08:56 | P.PN ---
Subjective Progress Note Date: 08/08/20 Principal diagnosis: Symptomatic triple-vessel coronary artery disease, mild left ventricular dysfunction. Past medical history significant for hypertension, hyperlipidemia, chronic obstructive pulmonary disease with preoperative FEV1 of 53% of predicted value, coronary artery disease with previous stenting to his right coronary artery in 2002, hypothyroid status post partial thyroidectomy, previous tobacco dependence quit smoking 20 years ago, type 2 diabetes mellitus with a preoperative hemoglobin A1c of 5.2%, and chronic kidney disease stage III with a baseline creatinine of 1.4-1.5, family history of premature coronary artery disease with a brother having a CABG at less than 50 years of age. POD #21 double coronary artery bypass grafting using the left internal mammary artery to left anterior descending coronary artery, a reverse greater saphenous vein graft from the aorta to the posterior descending coronary artery. Exclusion of the left atrial appendage using a 35 mm Atriclip, endoscopic harvesting of the right greater saphenous vein, graft flow measurement using the Zeussstim system, intraoperative transesophageal echocardiogram and epi-aortic scanning. Postoperative acute blood loss anemia, an expected outcome from hemodilution and cardiopulmonary bypass. Postoperative paroxysmal atrial fibrillation, unexpected. Postoperative pneumoperitoneum, unexpected. Acute on chronic kidney disease secondary to acute tubular necrosis. Pneumatosis of the small bowel. POD #15 ischemic bowel, small bowel resection. Prolonged mechanical ventilation, unexpected. Acute hypoxic respiratory failure requiring reintubation, unexpected. Postoperative hypotension requiring initiation of norepinephrine drip, unexpected. Acute abdomen, intraperitoneal hemorrhage. Postoperative day #6 exploratory laparotomy, washout of peritoneal cavity, ileostomy with small bowel resection. The patient was seen in follow-up today 08/08/2020 at his bedside in the inte nsive care unit. Currently the patient remains sedated on Precedex drip at 0.7 mcg/kg per hour, he opens his eyes with verbal stimuli, moves all 4 extremities appropriately with verbal stimuli and is shaking his head yes and no appropriately to verbal stimuli. Norepinephrine drip has been off since yesterday afternoon. Remains hemodynamically stable and is currently on no inotropic pressures pressure support. Bedside telemetry showing atrial fibrillation heart rate 66 BPM. Amiodarone drip remains confusing at 0.25 mg/m. NG tube to low intermittent wall suction with 200 mL of dark green drainage in the last 12 hours. Right lower quadrant ileostomy stoma is pink with scant serous drainage. TPN infusing at 75 mL an hour per right brachial PICC line for nutritional support. Tracheostomy is midline with mechanical ventilator support in place, current mechanical ventilator settings are assist control 24, TV 500, FiO2 30% and PEEP of 5, oxygen saturation 100% on current mechanical ventilator settings. ABG results this morning show a pH 7.38, pCO2 38, pO2 99, HCO3 22, oxygen saturation 99.3 and base excess -2.7. He remains on meropenem, daptomycin for antibiotic coverage managed by Dr. Frederick from infectious disease. Laboratory results this morning continued to show his WBC count trending down, WBCs 10.2, hemoglobin 7.9, HCT 24.5, lites 127, BUN 78 and creatinine 1.81. He remains afebrile last 24 hours. Midline abdominal incision with wound VAC dressing clean, dry and intact. Wound VAC dressing was changed yesterday 08/07/2020. Villafana catheter remains in place for accurate I's and O's, urine output in the last 8 hours 1150 mL. Objective - Vital Signs Vital signs: Vital Signs Temp 97.7 F 08/08/20 04:00 Pulse 60 08/08/20 07:00 Resp 27 H 08/08/20 07:00 BP 129/62 08/08/20 07:00 Pulse Ox 100 08/08/20 07:00 Intake & Output 08/07/20 08/08/20 08/08/20 18:59 06:59 18:59 Intake Total 2345.195 2393.155 Output Total 1525 1950 Balance 820.195 443.155 Weight 107.7 kg 107 kg Intake: IV 1811 1174 Sodium Chloride 0.9% 1, 220 220 000 ml @ 20 mls/hr IV . Q24H WADE Rx#:[id number] TPN 1558 915 pressure bag 33 39 Intake, IV Titration 657.755 0719.155 Amount Amiodarone 300 mg In 152.083 Dextrose 5% in Water 250 ml @ 0.25 MG/MIN 12.5 mls /hr IV .Q20H WADE Rx#: [id number] Dexmedetomidine/0.9% NaCl 187.327 291.188 (Pmx) 400 mcg In Empty Bag 1 bag @ Titrate IV . Q0M WADE Rx#:[id number] Insulin Regular 100 unit 52.109 56.717 In Sodium Chloride 0.9% 100 ml @ Per Protocol IV .Q0M WADE Rx#:[id number] Norepinephrine 8 mg In 142.676 Sodium Chloride 0.9% 250 ml @ 0.05 MCG/KG/MIN 10. 846 mls/hr IV .[id number] WADE Rx#:[id number] Sodium Acetate 50 meq 871.25 Potassium Acetate 28 meq In Amino Acids 5 %/ Dextrose 20 % 1,000 ml @ 75 mls/hr IV .BY DURATION WADE Rx#:[id number] Output: Gastric Drainage 150 200 Drainage 75 Abdomen 75 Urine 1375 1660 Emesis 0 Other 15 Other: Voiding Method Indwelling Catheter Indwelling Catheter # Voids 0 ABP, PAP, CO, CI - Last Documented Arterial Blood Pressure 116/48 Pulmonary Artery Pressure 33/14 Cardiac Output 6.7 Cardiac Index 3.1 - Constitutional Constitutional Comment(s): Patient remains sedated with Precedex drip at 0.7 mcg/kg per hour. He continues to follow simple verbal commands, moves all 4 extremities appropriately and is shaking his head yes and no appropriately to questions. General appearance: Present: cooperative, no acute distress, obese - EENT Eyes: Present: PERRLA, normal appearance. Absent: scleral icterus ENT: Present: hearing grossly normal - Neck Details: Neck is supple, no JVD. - Respiratory Details: Lung sounds essentially clear throughout, diminished to his bilateral bases. No wheezes, rhonchi or crackles. Respirations are symmetrical and nonlabored with mechanical ventilator support. Tracheostomy is midline and in place. Current mechanical ventilator settings are assist control 24, TV 500, FiO2 30% and PEEP of 5. Oxygen saturations on current mechanical ventilator settings are 100%. ABG results this morning show a pH of 7.38, pCO2 38, PaO2 99, HCO3 22 oxygen saturation 99.3 and base excess -2.7. - Cardiovascular Details: Irregular rhythm with controlled rate. S1 and S2 present, negative for S3, gallop or murmur. Sternum is stable. Heart hugger is in place. Bedside telemetry showing atrial fibrillation heart rate 66 BPM. Knee-high ALPHONSO hose and sequential compression devices in place to his bilateral lower extremities. Right brachial PICC line in place and functioning. Left radial arterial line in place and functioning. - Gastrointestinal Gastrointestinal Comment(s): Abdomen is soft, tender to touch and nondistended. Hypoactive bowel sounds pres ent to all 4 abdominal quadrants. No guarding or rigidity. NG tube in place to low intermittent wall suction draining dark green drainage with 200 mL output in the last 12 hours. TPN infusing at 75 mL per hour per right arm PICC line for nutritional support. Bowel movement from his rectum this morning. Ileostomy remains in place, stoma is pink with scant serous drainage. - Genitourinary Genitourinary Comment(s): Villafana catheter for accurate I&O. Draining clear yellow urine, 1150 mL output in the last 8 hours. - Integumentary Integumentary Comment(s): Skin is warm and dry. No clubbing or cyanosis is present. Midline sternal incision is clean, dry and approximated. No drainage or redness is present. Mi dline abdominal incision with wound VAC in place, dressing is clean, dry and intact, no air leak is present. Coccyx area with erythema stage II. Anasarca with serous weeping to his bilateral upper extremities. - Neurologic Neurologic Comment(s): No focal or motor deficits appreciated. Remains on Precedex drip at 0.7 mcg/kg per hour. Neurologic: Present: CNII-XII intact - Musculoskeletal Musculoskeletal: Present: generalized weakness, strength equal bilaterally - Psychiatric Psychiatric Comment(s): Remains sedated on Precedex drip at 0.7 mcg/kg per hour. Unable to accurately assess at this time. - Allied health notes Allied health notes reviewed: nursing - Labs CBC & Chem 7: 08/08/20 04:00 08/08/20 04:00 Labs: Abnormal Lab Results - Last 24 Hours (Table) 08/07/20 08/07/20 08/07/20 Range/Units 08:15 09:05 10:07 RBC (4.30-5.90) m/uL Hgb (13.0-17.5) gm/dL Hct (39.0-53.0) % RDW (11.5-15.5) % Plt Count (150-450) k/uL Neutrophils # (1.3-7.7) k/uL Lymphocytes # (1.0-4.8) k/uL ABG O2 Saturation (94-97) % Chloride (98-107) mmol/L BUN (9-20) mg/dL Creatinine (0.66-1.25) mg/dL Glucose (74-99) mg/dL POC Glucose (mg/dL) 126 H 106 H 115 H (75-99) mg/dL Ionized Calcium Tamara (4.5-5.3) mg/dL ALT (4-49) U/L Total Protein (6.3-8.2) g/dL Albumin (3.5-5.0) g/dL 08/07/20 08/07/20 08/07/20 Range/Units 11:23 12:10 13:08 RBC (4.30-5.90) m/uL Hgb (13.0-17.5) gm/dL Hct (39.0-53.0) % RDW (11.5-15.5) % Plt Count (150-450) k/uL Neutrophils # (1.3-7.7) k/uL Lymphocytes # (1.0-4.8) k/uL ABG O2 Saturation (94-97) % Chloride (98-107) mmol/L BUN (9-20) mg/dL Creatinine (0.66-1.25) mg/dL Glucose (74-99) mg/dL POC Glucose (mg/dL) 157 H 161 H 156 H (75-99) mg/dL Ionized Calcium Tamara (4.5-5.3) mg/dL ALT (4-49) U/L Total Protein (6.3-8.2) g/dL Albumin (3.5-5.0) g/dL 08/07/20 08/07/20 08/07/20 Range/Units 14:24 15:11 16:02 RBC (4.30-5.90) m/uL Hgb (13.0-17.5) gm/dL Hct (39.0-53.0) % RDW (11.5-15.5) % Plt Count (150-450) k/uL Neutrophils # (1.3-7.7) k/uL Lymphocytes # (1.0-4.8) k/uL ABG O2 Saturation (94-97) % Chloride (98-107) mmol/L BUN (9-20) mg/dL Creatinine (0.66-1.25) mg/dL Glucose (74-99) mg/dL POC Glucose (mg/dL) 130 H 123 H 105 H (75-99) mg/dL Ionized Calcium Tamara (4.5-5.3) mg/dL ALT (4-49) U/L Total Protein (6.3-8.2) g/dL Albumin (3.5-5.0) g/dL 08/07/20 08/07/20 08/07/20 Range/Units 17:20 18:12 19:06 RBC (4.30-5.90) m/uL Hgb (13.0-17.5) gm/dL Hct (39.0-53.0) % RDW (11.5-15.5) % Plt Count (150-450) k/uL Neutrophils # (1.3-7.7) k/uL Lymphocytes # (1.0-4.8) k/uL ABG O2 Saturation (94-97) % Chloride (98-107) mmol/L BUN (9-20) mg/dL Creatinine (0.66-1.25) mg/dL Glucose (74-99) mg/dL POC Glucose (mg/dL) 129 H 140 H 156 H (75-99) mg/dL Ionized Calcium Tamara (4.5-5.3) mg/dL ALT (4-49) U/L Total Protein (6.3-8.2) g/dL Albumin (3.5-5.0) g/dL 08/07/20 08/07/20 08/07/20 Range/Units 21:32 22:26 23:29 RBC (4.30-5.90) m/uL Hgb (13.0-17.5) gm/dL Hct (39.0-53.0) % RDW (11.5-15.5) % Plt Count (150-450) k/uL Neutrophils # (1.3-7.7) k/uL Lymphocytes # (1.0-4.8) k/uL ABG O2 Saturation (94-97) % Chloride (98-107) mmol/L BUN (9-20) mg/dL Creatinine (0.66-1.25) mg/dL Glucose (74-99) mg/dL POC Glucose (mg/dL) 136 H 128 H 127 H (75-99) mg/dL Ionized Calcium Tamara (4.5-5.3) mg/dL ALT (4-49) U/L Total Protein (6.3-8.2) g/dL Albumin (3.5-5.0) g/dL 08/08/20 08/08/20 08/08/20 Range/Units 01:08 02:57 03:56 RBC (4.30-5.90) m/uL Hgb (13.0-17.5) gm/dL Hct (39.0-53.0) % RDW (11.5-15.5) % Plt Count (150-450) k/uL Neutrophils # (1.3-7.7) k/uL Lymphocytes # (1.0-4.8) k/uL ABG O2 Saturation (94-97) % Chloride (98-107) mmol/L BUN (9-20) mg/dL Creatinine (0.66-1.25) mg/dL Glucose (74-99) mg/dL POC Glucose (mg/dL) 125 H 123 H 128 H (75-99) mg/dL Ionized Calcium Tamara (4.5-5.3) mg/dL ALT (4-49) U/L Total Protein (6.3-8.2) g/dL Albumin (3.5-5.0) g/dL 08/08/20 08/08/20 08/08/20 Range/Units 04:00 04:00 04:40 RBC 2.47 L (4.30-5.90) m/uL Hgb 7.9 L (13.0-17.5) gm/dL Hct 24.5 L (39.0-53.0) % RDW 17.8 H (11.5-15.5) % Plt Count 127 L (150-450) k/uL Neutrophils # 9.1 H (1.3-7.7) k/uL Lymphocytes # 0.4 L (1.0-4.8) k/uL ABG O2 Saturation 99.3 H (94-97) % Chloride 115 H (98-107) mmol/L BUN 78 H (9-20) mg/dL Creatinine 1.81 H (0.66-1.25) mg/dL Glucose 127 H (74-99) mg/dL POC Glucose (mg/dL) (75-99) mg/dL Ionized Calcium Tamara 5.9 H (4.5-5.3) mg/dL ALT 113 H (4-49) U/L Total Protein 4.5 L (6.3-8.2) g/dL Albumin 2.1 L (3.5-5.0) g/dL 08/08/20 Range/Units 06:09 RBC (4.30-5.90) m/uL Hgb (13.0-17.5) gm/dL Hct (39.0-53.0) % RDW (11.5-15.5) % Plt Count (150-450) k/uL Neutrophils # (1.3-7.7) k/uL Lymphocytes # (1.0-4.8) k/uL ABG O2 Saturation (94-97) % Chloride (98-107) mmol/L BUN (9-20) mg/dL Creatinine (0.66-1.25) mg/dL Glucose (74-99) mg/dL POC Glucose (mg/dL) 134 H (75-99) mg/dL Ionized Calcium Tamara (4.5-5.3) mg/dL ALT (4-49) U/L Total Protein (6.3-8.2) g/dL Albumin (3.5-5.0) g/dL Microbiology - Last 24 Hours (Table) 08/02/20 21:48 Blood Culture - Preliminary Blood No Growth after 120 hours 08/02/20 19:25 Blood Culture - Preliminary Blood No Growth after 120 hours - Imaging and Cardiology Chest x-ray: report reviewed, image reviewed Assessment and Plan Assessment: 1. Heavily calcified symptomatic triple-vessel coronary artery disease, status post 2 vessel coronary artery bypass grafting surgery 2. History of coronary artery disease with stent placement to his right coronary artery in 2002 3. Mild left ventricular dysfunction 4. History of hypertension 5. History of hyperlipidemia 6. Hypothyroid status post partial thyroidectomy 7. Chronic obstructive pulmonary disease with preoperative FEV1 53% of predi cted value 8. Remote history of tobacco dependence quit smoking 20 years ago 9. Acute on chronic kidney disease stage III with a baseline creatinine of 1.4- 1.5 10. Diabetes mellitus type 2 with a preoperative hemoglobin A1c 5.2% 11. Postoperative acute blood loss anemia, expected 12. Postoperative paroxysmal atrial fibrillation, unexpected 13. Remote history of pneumonia 14. Postoperative paroxysmal atrial fibrillation, unexpected, status post exclusion of the left atrial appendage 15. Pneumoperitoneum, unexpected 16. Pneumatosis of the small bowel, ischemic bowel, status post resection of the small bowel 17. Positive sputum culture for pseudomonas fluorescens 18. Postoperative prolonged mechanical ventilation 19. Acute hypoxic respiratory failure requiring reintubation, unexpected 20. Postoperative hypotension requiring initiation of norepinephrine drip, unexpected 21. Acute abdomen, intraperitoneal hemorrhage, S/P exploratory laparotomy, washout of peritoneal cavity, ileostomy with small bowel resection 22. Postoperative thrombocytopenia, unexpected Plan: 1. Continue low dose aspirin. We will start Toprol tartrate 2.5 mg IVP every 6 hours, hold for systolic blood pressure less than 100 mmHg and heart rate less than 60. 2. Continue IV amiodarone drip at 0.25 mg/m for atrial fibrillation prophylaxis. 3. Continue Precedex drip for sedation, wean as tolerated, managed by pulmonary/ critical care medicine. 4. Continue to monitor daily labs and chest x-rays. 5. Continue GI/DVT prophylaxis. 6. Pain control with current medication regimen. 7. Insulin management per primary care service. Currently on 5.5 units per hour insulin drip. 8. Continue TPN at 75 mL per hour. Keep the NG tube to low intermittent wall suction. 9. Nephrology following. Avoid nephrotoxic agents. Continue IV Lasix per their recommendations. Urine output excellent, 1150 mL output last 8 hours. 10. Strict accurate intake and output, daily weights. 11. Continue IV meropenem day 3, daptomycin, day 5, and Eraxis. Positive sputum culture for pseudomonas fluorescens on 07/24/2020. Sputum culture from 08/03/2020 showing Radha albicans. Blood culture results show no growth after 48 hours. Antibiotic management per Dr. Frederick's recommendations. 12. Patient's daughter Corinne updated on his care and status. 13. Continue Villafana catheter for accurate I's and O's. 14. Wean norepinephrine drip as tolerated. 15. Mechanical ventilator management per pulmonary critical care management recommendations. CPAP trials in progress. 16. Continue wound VAC to midline abdominal incision. Dressing changes Friday and Friday, managed by general surgery. 17. Continue antibiotics, managed by infectious disease. 18. More recommendations to follow based on patient's clinical course. Time with Patient: Greater than 30
[2020-08-08 09:19] LABS: Glucose,Whole Blood 184 mg/dL (75-99)
[2020-08-08 10:15] LABS: Glucose,Whole Blood 167 mg/dL (75-99)
--- NOTE | 2020-08-08 10:29 | P.PN ---
Subjective Patient is seen in follow-up for acute kidney injury on chronic kidney disease. Renal function improving. Off Levophed. He is on amiodarone drip for A. fib with RVR. Extubated this morning. Receiving TPN. Nonoliguric Vital signs are stable. HEENT: Intubated. LUNGS: Breath sounds decreased. HEART: Regular rate and rhythm. ABDOMEN: No gross distention noted. EXTREMITITES: 1+ edema. Objective - Vital Signs Vital signs: Vital Signs Temp 98.6 F 08/08/20 08:00 Pulse 77 08/08/20 10:00 Resp 27 H 08/08/20 10:00 BP 123/60 08/08/20 10:00 Pulse Ox 93 L 08/08/20 10:00 Intake & Output 08/07/20 08/08/20 08/08/20 18:59 06:59 18:59 Intake Total 2345.195 2393.155 428.069 Output Total 1525 1950 330 Balance 820.195 443.155 98.069 Weight 107.7 kg 107 kg Intake: IV 1811 1174 354 Anidulafungin 200 mg In 100 Sodium Chloride 0.9% 200 ml @ 84 mls/hr IVPB ONCE ONE Rx#:[id number] Sodium Chloride 0.9% 1, 220 220 20 000 ml @ 20 mls/hr IV . Q24H WADE Rx#:[id number] TPN 1558 915 225 pressure bag 33 39 9 Intake, IV Titration 277.507 8346.155 74.069 Amount Amiodarone 300 mg In 152.083 Dextrose 5% in Water 250 ml @ 0.25 MG/MIN 12.5 mls /hr IV .Q20H WADE Rx#: [id number] Dexmedetomidine/0.9% NaCl 187.327 291.188 35.669 (Pmx) 400 mcg In Empty Bag 1 bag @ Titrate IV . Q0M WADE Rx#:[id number] Insulin Regular 100 unit 52.109 56.717 38.400 In Sodium Chloride 0.9% 100 ml @ Per Protocol IV .Q0M WADE Rx#:[id number] Norepinephrine 8 mg In 142.676 Sodium Chloride 0.9% 250 ml @ 0.05 MCG/KG/MIN 10. 846 mls/hr IV .[id number] WADE Rx#:[id number] Sodium Acetate 50 meq 871.25 Potassium Acetate 28 meq In Amino Acids 5 %/ Dextrose 20 % 1,000 ml @ 75 mls/hr IV .BY DURATION WADE Rx#:[id number] Output: Gastric Drainage 150 200 Drainage 75 Abdomen 75 Urine 1375 1660 330 Emesis 0 Other 15 Other: Voiding Method Indwelling Catheter Indwelling Catheter Indwelling Catheter # Voids 0 # Bowel Movements 1 ABP, PAP, CO, CI - Last Documented Arterial Blood Pressure 143/54 Pulmonary Artery Pressure 33/14 Cardiac Output 6.7 Cardiac Index 3.1 - Labs CBC & Chem 7: 08/08/20 04:00 08/08/20 04:00 Labs: Abnormal Lab Results - Last 24 Hours (Table) 08/07/20 08/07/20 08/07/20 Range/Units 11:23 12:10 13:08 RBC (4.30-5.90) m/uL Hgb (13.0-17.5) gm/dL Hct (39.0-53.0) % RDW (11.5-15.5) % Plt Count (150-450) k/uL Neutrophils # (1.3-7.7) k/uL Lymphocytes # (1.0-4.8) k/uL ABG O2 Saturation (94-97) % Chloride (98-107) mmol/L BUN (9-20) mg/dL Creatinine (0.66-1.25) mg/dL Glucose (74-99) mg/dL POC Glucose (mg/dL) 157 H 161 H 156 H (75-99) mg/dL Ionized Calcium Tamara (4.5-5.3) mg/dL ALT (4-49) U/L Total Protein (6.3-8.2) g/dL Albumin (3.5-5.0) g/dL 08/07/20 08/07/20 08/07/20 Range/Units 14:24 15:11 16:02 RBC (4.30-5.90) m/uL Hgb (13.0-17.5) gm/dL Hct (39.0-53.0) % RDW (11.5-15.5) % Plt Count (150-450) k/uL Neutrophils # (1.3-7.7) k/uL Lymphocytes # (1.0-4.8) k/uL ABG O2 Saturation (94-97) % Chloride (98-107) mmol/L BUN (9-20) mg/dL Creatinine (0.66-1.25) mg/dL Glucose (74-99) mg/dL POC Glucose (mg/dL) 130 H 123 H 105 H (75-99) mg/dL Ionized Calcium Tamara (4.5-5.3) mg/dL ALT (4-49) U/L Total Protein (6.3-8.2) g/dL Albumin (3.5-5.0) g/dL 08/07/20 08/07/20 08/07/20 Range/Units 17:20 18:12 19:06 RBC (4.30-5.90) m/uL Hgb (13.0-17.5) gm/dL Hct (39.0-53.0) % RDW (11.5-15.5) % Plt Count (150-450) k/uL Neutrophils # (1.3-7.7) k/uL Lymphocytes # (1.0-4.8) k/uL ABG O2 Saturation (94-97) % Chloride (98-107) mmol/L BUN (9-20) mg/dL Creatinine (0.66-1.25) mg/dL Glucose (74-99) mg/dL POC Glucose (mg/dL) 129 H 140 H 156 H (75-99) mg/dL Ionized Calcium Tamara (4.5-5.3) mg/dL ALT (4-49) U/L Total Protein (6.3-8.2) g/dL Albumin (3.5-5.0) g/dL 08/07/20 08/07/20 08/07/20 Range/Units 21:32 22:26 23:29 RBC (4.30-5.90) m/uL Hgb (13.0-17.5) gm/dL Hct (39.0-53.0) % RDW (11.5-15.5) % Plt Count (150-450) k/uL Neutrophils # (1.3-7.7) k/uL Lymphocytes # (1.0-4.8) k/uL ABG O2 Saturation (94-97) % Chloride (98-107) mmol/L BUN (9-20) mg/dL Creatinine (0.66-1.25) mg/dL Glucose (74-99) mg/dL POC Glucose (mg/dL) 136 H 128 H 127 H (75-99) mg/dL Ionized Calcium Tamara (4.5-5.3) mg/dL ALT (4-49) U/L Total Protein (6.3-8.2) g/dL Albumin (3.5-5.0) g/dL 08/08/20 08/08/20 08/08/20 Range/Units 01:08 02:57 03:56 RBC (4.30-5.90) m/uL Hgb (13.0-17.5) gm/dL Hct (39.0-53.0) % RDW (11.5-15.5) % Plt Count (150-450) k/uL Neutrophils # (1.3-7.7) k/uL Lymphocytes # (1.0-4.8) k/uL ABG O2 Saturation (94-97) % Chloride (98-107) mmol/L BUN (9-20) mg/dL Creatinine (0.66-1.25) mg/dL Glucose (74-99) mg/dL POC Glucose (mg/dL) 125 H 123 H 128 H (75-99) mg/dL Ionized Calcium Tamara (4.5-5.3) mg/dL ALT (4-49) U/L Total Protein (6.3-8.2) g/dL Albumin (3.5-5.0) g/dL 08/08/20 08/08/20 08/08/20 Range/Units 04:00 04:00 04:40 RBC 2.47 L (4.30-5.90) m/uL Hgb 7.9 L (13.0-17.5) gm/dL Hct 24.5 L (39.0-53.0) % RDW 17.8 H (11.5-15.5) % Plt Count 127 L (150-450) k/uL Neutrophils # 9.1 H (1.3-7.7) k/uL Lymphocytes # 0.4 L (1.0-4.8) k/uL ABG O2 Saturation 99.3 H (94-97) % Chloride 115 H (98-107) mmol/L BUN 78 H (9-20) mg/dL Creatinine 1.81 H (0.66-1.25) mg/dL Glucose 127 H (74-99) mg/dL POC Glucose (mg/dL) (75-99) mg/dL Ionized Calcium Tamara 5.9 H (4.5-5.3) mg/dL ALT 113 H (4-49) U/L Total Protein 4.5 L (6.3-8.2) g/dL Albumin 2.1 L (3.5-5.0) g/dL 08/08/20 08/08/20 08/08/20 Range/Units 06:09 08:15 09:18 RBC (4.30-5.90) m/uL Hgb (13.0-17.5) gm/dL Hct (39.0-53.0) % RDW (11.5-15.5) % Plt Count (150-450) k/uL Neutrophils # (1.3-7.7) k/uL Lymphocytes # (1.0-4.8) k/uL ABG O2 Saturation (94-97) % Chloride (98-107) mmol/L BUN (9-20) mg/dL Creatinine (0.66-1.25) mg/dL Glucose (74-99) mg/dL POC Glucose (mg/dL) 134 H 197 H 184 H (75-99) mg/dL Ionized Calcium Tamara (4.5-5.3) mg/dL ALT (4-49) U/L Total Protein (6.3-8.2) g/dL Albumin (3.5-5.0) g/dL 08/08/20 Range/Units 10:13 RBC (4.30-5.90) m/uL Hgb (13.0-17.5) gm/dL Hct (39.0-53.0) % RDW (11.5-15.5) % Plt Count (150-450) k/uL Neutrophils # (1.3-7.7) k/uL Lymphocytes # (1.0-4.8) k/uL ABG O2 Saturation (94-97) % Chloride (98-107) mmol/L BUN (9-20) mg/dL Creatinine (0.66-1.25) mg/dL Glucose (74-99) mg/dL POC Glucose (mg/dL) 167 H (75-99) mg/dL Ionized Calcium Tamara (4.5-5.3) mg/dL ALT (4-49) U/L Total Protein (6.3-8.2) g/dL Albumin (3.5-5.0) g/dL Microbiology - Last 24 Hours (Table) 08/02/20 21:48 Blood Culture - Preliminary Blood No Growth after 120 hours 08/02/20 19:25 Blood Culture - Preliminary Blood No Growth after 120 hours Assessment and Plan Plan: Assessment: 1. Acute kidney injury secondary to hemodynamic ATN. No hydronephrosis noted on computed tomography scan. No proteinuria on UA. Nonoliguric. Renal function improving. Creatinine 1.81 today. 2. Chronic kidney disease stage III with baseline creatinine in the range of 1.2-1.5 secondary to nephrosclerosis. UA from June 2020 was benign. 3. Coronary artery disease status post 2 vessel CABG on July 18. 4. Hypervolemic hyponatremia. Improved with diuresis. 5. Bowel ischemia status post exploratory laparotomy and resection. Underwent another exploratory laparotomy on August 02 with ileostomy. 6. Diabetes mellitus. 7. Volume overload. Improved with diuresis. 8. Hypokalemia secondary to diuresis. Status post placement. 9. A. fib maintained on amiodarone drip. 10. Anemia of chronic kidney disease and post-cabg. Status post blood transfusion this admission. Plan: Maintain TPN per surgical recommendations. Avoid nephrotoxins. Continue to monitor renal function and urine output. Wean FiO2 and vasopressors. Monitor off diuretics.
--- NOTE | 2020-08-08 10:31 | P.PN ---
Subjective Progress Note Date: 08/08/20 Principal diagnosis: Coronary artery disease, status post three-vessel bypass grafting 79-year-old white male patient with past medical history of hypertension, hyperlipidemia, moderate to severe COPD with the baseline FEV1 of 56% of predicted who came in on 07/18/2020 for elective two-vessel bypass grafting with PABLO to LAD, and SVG to the PDA. He was seen in the intensive care unit following surgery, patient was successfully weaned and extubated from mechanical ventilator and under 6 hours following his OR exit, is currently awake and alert, sitting in the chair, he is currently on 2 L of oxygen, his pulse ox is 98%, hemodynamically he stable, blood pressure is 106/51, PA pressures 35/11, CVP is 8, no fever or chills, IV fluids including the 0.9 normal saline at a ra te of 30 ML per hour, insulin is 4.5 units per hour, no vasoactive drips. Today's chest x-ray shows a pneumoperitoneum with lucency present underneath the right hemidiaphragm. He has left pleural and mediastinal chest tube, and there has been 500 mL of serosanguineous output from the left pleural and 350 mL from the mediastinal chest tube in the last 24 hours. Is having some mild discomfort under the right rib cage, but no acute distress, abdomen is distended but soft, he is hemodynamically stable, he is in sinus mechanism, no nausea vomiting or diarrhea. CT of the abdomen and pelvis is pending today's labs have been reviewed, showing white blood cell count of 11.9, hemoglobin of 9, sodium is 133, the rest of the electrolytes were within normal limits, B1 is 25 creatinine is 1.18 On 07/21/2020 patient seen in follow-up in the intensive care unit, today is postoperative day 3 status post three-vessel coronary artery bypass grafting, (patient became more short of breath, wheezy, patient has a known history of moderately severe COPD/emphysema, we started him on IV Solu-Medrol, and Pulmicort and Perforomist were added. This morning she remains on 3 L of oxygen his pulse ox is 94-95%, hemodynamically he stable, he just on plan and was seen and rated 20 ML per hour, insulin is a 2.5 units per hour, today's chest x-ray showing slight increased bibasilar atelectasis or infiltrates. He thinks the breathing treatments in the steroids have significantly helped, breathing easier, he is achieving 500-750 on his incentive spirometer, not able to bring up any sputum yet. he is currently sitting up in a chair, in no acute distress, his incisional pain is fairly well-controlled, patient had another episode of A. fib with RVR last night, he is back in sinus rhythm with a controlled rate this morning. He received a dose of Lasix this morning. Chest tubes have been discontinued. On 07/31/2020 patient seen in follow-up in the intensive care unit. He is postoperative day 12 status post three-vessel bypass grafting, and postoperative day #7 status post exploratory laparotomy and small bowel resection, he is awake and alert, he was extubated yesterday to a BiPAP support, this morning he remains on BiPAP, pressures of 10 and 5, and FiO2 of 35%, and his pulse ox is 100%, hemodynamically he stable, he is A. fib on a monitor with a rate of 98 BPM, he is currently on 9.9 normal seen at a rate of 10 ML per hour, insulin is at 2 units per hour, amiodarone at 0.5 mg per hour, heparin is at weight-based protocol, and TPN is a 75 ML per hour. Today's chest x-ray shows a stable portable chest, with bibasilar infiltrates greater on the right. She remains on Lasix at 40 mg every 12 hours, and he is negative fluid balance negative, at - 645 ML over the last 24 hours. No fever or chills, appears to be normally swollen, we will plus edema in lower extremities, his labs have been reviewed, showing white blood cell count 15.1, hemoglobin of 8, sodium of 132, potassium is 3.5, chloride is 100, his BUN is 63, and a creatinine is 1.94, calcitonin is trending down, down to 1.41 from 3.53. He remains on Zosyn or antibiotic coverage for evidence of Pseudomonas in his sputum culture. His NG tube in place to low intermittent suction, and there has been about 400 mL of bilious output in the last 24 hours, patient is passing gas but has not had any bowel movement yet. Surgical services are following. On 08/07/2020 patient seen in follow-up in the intensive care unit. This is postop day #20, status post 2 vessel bypass grafting, postop day #14, status post small bowel resection, and postop day #5 status post exploratory laparotomy and washout of peritoneal cavity and ileostomy with small bowel resection. Patient remains intubated, sedated, on assist-control mode of ventilation with a rate of 24, tidal volume is 500, FiO2 40%, and PEEP of 5, despite his blood ga ses showed pO2 of 1:30, pCO2 41, and pH of 7.30, and FiO2 had since been dropped to 30%. Is currently on Precedex at 0.6 mics per kilo per minute, amiodarone at 0.25 mg/m, insulin is currently off, levo fed is currently at 1 rito per minute, and 0.9 normal saline at a rate of 20 ML per hour, he is receiving nutrition in the form of TPN at a rate of 75 ML per hour, yesterday patient was woken up and he had a half an hour of spontaneous breathing trials however it became very tachypneic after half an hour, and had to be placed on assist-control mode of ventilation and sedated. Today's chest x-ray shows stable appearance of bibasilar opacities. Vital signs have been stable overnight, no fever. No vasoactive drips. Current antibiotics include meropenem, daptomycin, and Eraxis. White count is trending down, and is down to 7.6 and today's labs, hemoglobin 7.6, sodium is 138, potassium is 4.4, chloride is 114, CO2 is 21, BUN is 83, and creatinine is 2.19. G-tube remains in place, and the amount of drainage from it has been decreasing, with only 350 ML over the last 24 hours. Abdomen is nontender, wound VAC is in place. Bowel sounds are auscultated but they are hypoactive, right lower abdomen ileostomy has not produced any stool, and there is only liquid serosanguineous dark output from daily ostomy, no gas. On 08/08/2020 he is seen in follow-up in intensive care unit, he is awake, is following commands, no agitation, yesterday she went in on pressure-support of 10/CPAP of 5 for 10 hours, he was placed back on assist control mode overnight, this morning he is back on on pressure-support of 10, tolerating it well so far. Today's chest x-ray shows bilateral basilar opacities. This morning's blood gases were reviewed, showing pO2 of 99, pCO2 38, pH of 7.38. Patient is currently on 0.9 normal saline at a rate of 10, TPN is a 75 ML per hour, he is on amiodarone at 0.25 mg/m, Precedex at 0.5 mics per kilo per minute, and insulin is at 8.5 units per hour. Today's labs have been reviewed, with blood cell count is down to 10.2, hemoglobin is 7.9, sodium is 142, potassium is 4.5, chloride is 1:15, CO2 is 23, BUN is 78, creatinine is improving, is down to 1.8. he is on meropenem, daptomycin and Eraxis for abiotic coverage, ID service is following, microbiology data has been reviewed, showing only Radha albicans most recent sputum culture. Previous sputum culture from 07/24/2020 was positive for pseudomonas fluorescence/putida. Patient apparently passed large bowel movements per rectum, with no visible blood in it last night, his ileostomy is in place, with no gas, not producing any stool. Abdomen is nontender, bowel sounds are hypoactive. Objective - Vital Signs Vital signs: Vital Signs Temp 98.6 F 08/08/20 08:00 Pulse 77 08/08/20 10:00 Resp 27 H 08/08/20 10:00 BP 123/60 08/08/20 10:00 Pulse Ox 93 L 08/08/20 10:00 Intake & Output 08/07/20 08/08/20 08/08/20 18:59 06:59 18:59 Intake Total 2345.195 2393.155 428.069 Output Total 1525 1950 330 Balance 820.195 443.155 98.069 Weight 107.7 kg 107 kg Intake: IV 1811 1174 354 Anidulafungin 200 mg In 100 Sodium Chloride 0.9% 200 ml @ 84 mls/hr IVPB ONCE ONE Rx#:[id number] Sodium Chloride 0.9% 1, 220 220 20 000 ml @ 20 mls/hr IV . Q24H [facility] Rx#:[id number] TPN 1558 915 225 pressure bag 33 39 9 Intake, IV Titration 763.355 9481.155 74.069 Amount Amiodarone 300 mg In 152.083 Dextrose 5% in Water 250 ml @ 0.25 MG/MIN 12.5 mls /hr IV .Q20H [facility] Rx#: [id number] Dexmedetomidine/0.9% NaCl 187.327 291.188 35.669 (Pmx) 400 mcg In Empty Bag 1 bag @ Titrate IV . Q0M [facility] Rx#:[id number] Insulin Regular 100 unit 52.109 56.717 38.400 In Sodium Chloride 0.9% 100 ml @ Per Protocol IV .Q0M [facility] Rx#:[id number] Norepinephrine 8 mg In 142.676 Sodium Chloride 0.9% 250 ml @ 0.05 MCG/KG/MIN 10. 846 mls/hr IV .[id number] [facility] Rx#:[id number] Sodium Acetate 50 meq 871.25 Potassium Acetate 28 meq In Amino Acids 5 %/ Dextrose 20 % 1,000 ml @ 75 mls/hr IV .BY DURATION [facility] Rx#:[id number] Output: Gastric Drainage 150 200 Drainage 75 Abdomen 75 Urine 1375 1660 330 Emesis 0 Other 15 Other: Voiding Method Indwelling Catheter Indwelling Catheter Indwelling Catheter # Voids 0 # Bowel Movements 1 ABP, PAP, CO, CI - Last Documented Arterial Blood Pressure 143/54 Pulmonary Artery Pressure 33/14 Cardiac Output 6.7 Cardiac Index 3.1 - Exam GENERAL EXAM: awake, follows simple command 79-year-old, white male, intubated, on pressure support of 10 and CPAP of 5 and FiO2 of 30% with FiO2 of 40%, and PEEP of 5. HEAD: Normocephalic/atraumatic. EYES: Normal reaction of pupils, equal size. Conjunctiva pink, sclera white. NOSE: Clear with pink turbinates. THROAT: No erythema or exudates. NECK: No masses, no JVD, no thyroid enlargement, no adenopathy. CHEST: No chest wall deformity. Symmetrical expansion. Sternal incision is clean dry and intact, chest tube sites clean dry and intact LUNGS: Equal air entry with no crackles, wheeze, rhonchi or dullness. CVS: irregular rate and rhythm, normal S1 and S2, no gallops, no murmurs, no r ubs ABDOMEN: Soft, nontender. No hepatosplenomegaly, normal bowel sounds, no guarding or rigidity. Abdominal incision with a wound VAC in place. Right lower abdominal ileostomy with no gas, only liquid dark serosanguineous output, no stool EXTREMITIES: No clubbing, mild generalized edema, no cyanosis, 2+ pulses and upper and lower extremities. MUSCULOSKELETAL: Muscle strength and tone normal. SPINE: No scoliosis or deformity SKIN: No rashes CENTRAL NERVOUS SYSTEM: Sedated, intubated. No focal deficits, tone is normal in all 4 extremities. - Labs CBC & Chem 7: 08/08/20 04:00 08/08/20 04:00 Labs: Abnormal Lab Results - Last 24 Hours (Table) 08/07/20 08/07/20 08/07/20 Range/Units 11:23 12:10 13:08 RBC (4.30-5.90) m/uL Hgb (13.0-17.5) gm/dL Hct (39.0-53.0) % RDW (11.5-15.5) % Plt Count (150-450) k/uL Neutrophils # (1.3-7.7) k/uL Lymphocytes # (1.0-4.8) k/uL ABG O2 Saturation (94-97) % Chloride (98-107) mmol/L BUN (9-20) mg/dL Creatinine (0.66-1.25) mg/dL Glucose (74-99) mg/dL POC Glucose (mg/dL) 157 H 161 H 156 H (75-99) mg/dL Ionized Calcium Tamara (4.5-5.3) mg/dL ALT (4-49) U/L Total Protein (6.3-8.2) g/dL Albumin (3.5-5.0) g/dL 08/07/20 08/07/20 08/07/20 Range/Units 14:24 15:11 16:02 RBC (4.30-5.90) m/uL Hgb (13.0-17.5) gm/dL Hct (39.0-53.0) % RDW (11.5-15.5) % Plt Count (150-450) k/uL Neutrophils # (1.3-7.7) k/uL Lymphocytes # (1.0-4.8) k/uL ABG O2 Saturation (94-97) % Chloride (98-107) mmol/L BUN (9-20) mg/dL Creatinine (0.66-1.25) mg/dL Glucose (74-99) mg/dL POC Glucose (mg/dL) 130 H 123 H 105 H (75-99) mg/dL Ionized Calcium Tamara (4.5-5.3) mg/dL ALT (4-49) U/L Total Protein (6.3-8.2) g/dL Albumin (3.5-5.0) g/dL 08/07/20 08/07/20 08/07/20 Range/Units 17:20 18:12 19:06 RBC (4.30-5.90) m/uL Hgb (13.0-17.5) gm/dL Hct (39.0-53.0) % RDW (11.5-15.5) % Plt Count (150-450) k/uL Neutrophils # (1.3-7.7) k/uL Lymphocytes # (1.0-4.8) k/uL ABG O2 Saturation (94-97) % Chloride (98-107) mmol/L BUN (9-20) mg/dL Creatinine (0.66-1.25) mg/dL Glucose (74-99) mg/dL POC Glucose (mg/dL) 129 H 140 H 156 H (75-99) mg/dL Ionized Calcium Tamara (4.5-5.3) mg/dL ALT (4-49) U/L Total Protein (6.3-8.2) g/dL Albumin (3.5-5.0) g/dL 08/07/20 08/07/20 08/07/20 Range/Units 21:32 22:26 23:29 RBC (4.30-5.90) m/uL Hgb (13.0-17.5) gm/dL Hct (39.0-53.0) % RDW (11.5-15.5) % Plt Count (150-450) k/uL Neutrophils # (1.3-7.7) k/uL Lymphocytes # (1.0-4.8) k/uL ABG O2 Saturation (94-97) % Chloride (98-107) mmol/L BUN (9-20) mg/dL Creatinine (0.66-1.25) mg/dL Glucose (74-99) mg/dL POC Glucose (mg/dL) 136 H 128 H 127 H (75-99) mg/dL Ionized Calcium Tamara (4.5-5.3) mg/dL ALT (4-49) U/L Total Protein (6.3-8.2) g/dL Albumin (3.5-5.0) g/dL 08/08/20 08/08/20 08/08/20 Range/Units 01:08 02:57 03:56 RBC (4.30-5.90) m/uL Hgb (13.0-17.5) gm/dL Hct (39.0-53.0) % RDW (11.5-15.5) % Plt Count (150-450) k/uL Neutrophils # (1.3-7.7) k/uL Lymphocytes # (1.0-4.8) k/uL ABG O2 Saturation (94-97) % Chloride (98-107) mmol/L BUN (9-20) mg/dL Creatinine (0.66-1.25) mg/dL Glucose (74-99) mg/dL POC Glucose (mg/dL) 125 H 123 H 128 H (75-99) mg/dL Ionized Calcium Tamara (4.5-5.3) mg/dL ALT (4-49) U/L Total Protein (6.3-8.2) g/dL Albumin (3.5-5.0) g/dL 08/08/20 08/08/20 08/08/20 Range/Units 04:00 04:00 04:40 RBC 2.47 L (4.30-5.90) m/uL Hgb 7.9 L (13.0-17.5) gm/dL Hct 24.5 L (39.0-53.0) % RDW 17.8 H (11.5-15.5) % Plt Count 127 L (150-450) k/uL Neutrophils # 9.1 H (1.3-7.7) k/uL Lymphocytes # 0.4 L (1.0-4.8) k/uL ABG O2 Saturation 99.3 H (94-97) % Chloride 115 H (98-107) mmol/L BUN 78 H (9-20) mg/dL Creatinine 1.81 H (0.66-1.25) mg/dL Glucose 127 H (74-99) mg/dL POC Glucose (mg/dL) (75-99) mg/dL Ionized Calcium Tamara 5.9 H (4.5-5.3) mg/dL ALT 113 H (4-49) U/L Total Protein 4.5 L (6.3-8.2) g/dL Albumin 2.1 L (3.5-5.0) g/dL 08/08/20 08/08/20 08/08/20 Range/Units 06:09 08:15 09:18 RBC (4.30-5.90) m/uL Hgb (13.0-17.5) gm/dL Hct (39.0-53.0) % RDW (11.5-15.5) % Plt Count (150-450) k/uL Neutrophils # (1.3-7.7) k/uL Lymphocytes # (1.0-4.8) k/uL ABG O2 Saturation (94-97) % Chloride (98-107) mmol/L BUN (9-20) mg/dL Creatinine (0.66-1.25) mg/dL Glucose (74-99) mg/dL POC Glucose (mg/dL) 134 H 197 H 184 H (75-99) mg/dL Ionized Calcium Tamara (4.5-5.3) mg/dL ALT (4-49) U/L Total Protein (6.3-8.2) g/dL Albumin (3.5-5.0) g/dL 08/08/20 Range/Units 10:13 RBC (4.30-5.90) m/uL Hgb (13.0-17.5) gm/dL Hct (39.0-53.0) % RDW (11.5-15.5) % Plt Count (150-450) k/uL Neutrophils # (1.3-7.7) k/uL Lymphocytes # (1.0-4.8) k/uL ABG O2 Saturation (94-97) % Chloride (98-107) mmol/L BUN (9-20) mg/dL Creatinine (0.66-1.25) mg/dL Glucose (74-99) mg/dL POC Glucose (mg/dL) 167 H (75-99) mg/dL Ionized Calcium Tamara (4.5-5.3) mg/dL ALT (4-49) U/L Total Protein (6.3-8.2) g/dL Albumin (3.5-5.0) g/dL Microbiology - Last 24 Hours (Table) 08/02/20 21:48 Blood Culture - Preliminary Blood No Growth after 120 hours 08/02/20 19:25 Blood Culture - Preliminary Blood No Growth after 120 hours Assessment and Plan Plan: Assessment: #1. Symptomatic coronary artery disease, status post two-vessel coronary artery bypass grafting with PABLO to the LAD, SVG to the PDA, on 07/18/2020, postop erative day #21 #2. Postoperative atrial fibrillation with rapid ventricular response requiring amiodarone and metoprolol, currently in sinus mechanism, remains off anticoagulation in view of recent history of bleeding at the anastomosis site of the small bowel resection. Today's hemoglobin is 7.9 on 08/07/2020 #3. Acute ischemic small bowel, status post exploratory laparotomy and small bowel resection, on 07/24/2020, today is postoperative day #15, patient remains on TPN for nutritional support. #4. Status post exploratory laparotomy, washout of peritoneal cavity, and ileostomy with small bowel resection on 08/02/2020 for intraperitoneal bleeding, today's postoperative day #6 #5. Acute hypoxic respiratory failure following bowel surgery, patient was extubated after his original bypass surgery on 07/18/2020, however developed ischemic small bowel, and required intubation on 07/24/2020, was extubated on 07/30/2020 to BiPAP support, and reintubated again on 08/02/2020 for reexp loration laparotomy for intraperitoneal bleeding. Patient was again extubated today on 08/08/2020 following satisfactory pressure support trial #6. Small atelectatic/pleural effusions involving both lung bases in addition to a small to moderate bilateral pleural effusion #7. Evidence of Pseudomonas in the sputum culture, patient is covered with Zosyn for antibiotic coverage, repeat sputum culture on 08/03/2022 showed Radha albicans, and patient is on Eraxis, Zosyn, Daptomycin #8. History of coronary artery disease with previous stent placement #9. History of hypertension #10. History of hyperlipidemia #11. Acute kidney injury #12. COPD moderate to severe with preop FEV1 of 53% of predicted #13. 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 Chronic kidney disease stage III at baseline #15. Diabetes mellitus type 2 #16. Postoperative acute blood loss anemia, expected outcome of open heart surgery, and two explor. laparotomy. #17. Postoperative paroxysmal A. fib, patient has had 2 episodes of A. fib with RVR in the postoperative period #18. Hypothyroidism status post partial thyroidectomy Plan: Patient tolerated pressure support trial with pressure support of 10, his weaning parameters were reviewed, and were satisfactory, patient was extubated, tolerating extubation well so far, continue with antibiotics per ID service recommendations, he may need placement on BiPAP support if he develops respiratory fatigue. Incentive spirometer to the bedside. continue nutritional support per surgery's recommendations, continue GI and DVT prophylaxis. Mechanical ventilator results have been reviewed, no new growth on the most recent cultures. White blood cell count is improving, his had no fevers, hemodynamically he remains stable, discontinue the Precedex. Maintain aspiration precautions, will continue to closely monitor in the intensive care unit. I performed a history & physical examination of the patient and discussed their management with my nurse practitioner, Cheli Kendrick. I reviewed the nurse practitioner's note and agree with the documented findings and plan of care. Lung sounds are positive for diminished throughout the lung valdez. The findings and the impression was discussed with the patient. I attest to the documentation by the nurse practitioner. Time with Patient: Greater than 30
--- NOTE | 2020-08-08 10:37 | P.PN ---
Subjective Progress Note Date: 08/08/20 Pt has now been extubated, asking for water. UOP is good, continues on meropenem, eraxis, daptomycin. Objective - Vital Signs Vital signs: Vital Signs Temp 98.6 F 08/08/20 08:00 Pulse 77 08/08/20 10:00 Resp 27 H 08/08/20 10:00 BP 123/60 08/08/20 10:00 Pulse Ox 93 L 08/08/20 10:00 Intake & Output 08/07/20 08/08/20 08/08/20 18:59 06:59 18:59 Intake Total 2345.195 2393.155 428.069 Output Total 1525 1950 330 Balance 820.195 443.155 98.069 Weight 107.7 kg 107 kg Intake: IV 1811 1174 354 Anidulafungin 200 mg In 100 Sodium Chloride 0.9% 200 ml @ 84 mls/hr IVPB ONCE ONE Rx#:[id number] Sodium Chloride 0.9% 1, 220 220 20 000 ml @ 20 mls/hr IV . Q24H WADE Rx#:[id number] TPN 1558 915 225 pressure bag 33 39 9 Intake, IV Titration 724.563 4935.155 74.069 Amount Amiodarone 300 mg In 152.083 Dextrose 5% in Water 250 ml @ 0.25 MG/MIN 12.5 mls /hr IV .Q20H WADE Rx#: [id number] Dexmedetomidine/0.9% NaCl 187.327 291.188 35.669 (Pmx) 400 mcg In Empty Bag 1 bag @ Titrate IV . Q0M WADE Rx#:[id number] Insulin Regular 100 unit 52.109 56.717 38.400 In Sodium Chloride 0.9% 100 ml @ Per Protocol IV .Q0M WADE Rx#:[id number] Norepinephrine 8 mg In 142.676 Sodium Chloride 0.9% 250 ml @ 0.05 MCG/KG/MIN 10. 846 mls/hr IV .[id number] WADE Rx#:[id number] Sodium Acetate 50 meq 871.25 Potassium Acetate 28 meq In Amino Acids 5 %/ Dextrose 20 % 1,000 ml @ 75 mls/hr IV .BY DURATION WADE Rx#:[id number] Output: Gastric Drainage 150 200 Drainage 75 Abdomen 75 Urine 1375 1660 330 Emesis 0 Other 15 Other: Voiding Method Indwelling Catheter Indwelling Catheter Indwelling Catheter # Voids 0 # Bowel Movements 1 ABP, PAP, CO, CI - Last Documented Arterial Blood Pressure 143/54 Pulmonary Artery Pressure 33/14 Cardiac Output 6.7 Cardiac Index 3.1 - Exam Gen: awake, alert HEENT: normocephalic, atraumatic, moist mucous membranes, + central line Resp: CPAP, adequate lung expansion, symmetic breathing, no accessory muscle use CVS: good distal perfusion x 4, RRR, no murmurs, clicks, gallops GI: soft, NTTP, ND : no SPT, no CVAT, malagon catheter is present MSK: + pitting edema, no clubbing Neuro: non-focal, no sensory deficits, appropriate tone - Labs CBC & Chem 7: 08/08/20 04:00 08/08/20 04:00 Labs: Abnormal Lab Results - Last 24 Hours (Table) 08/07/20 08/07/20 08/07/20 Range/Units 11:23 12:10 13:08 RBC (4.30-5.90) m/uL Hgb (13.0-17.5) gm/dL Hct (39.0-53.0) % RDW (11.5-15.5) % Plt Count (150-450) k/uL Neutrophils # (1.3-7.7) k/uL Lymphocytes # (1.0-4.8) k/uL ABG O2 Saturation (94-97) % Chloride (98-107) mmol/L BUN (9-20) mg/dL Creatinine (0.66-1.25) mg/dL Glucose (74-99) mg/dL POC Glucose (mg/dL) 157 H 161 H 156 H (75-99) mg/dL Ionized Calcium Tamara (4.5-5.3) mg/dL ALT (4-49) U/L Total Protein (6.3-8.2) g/dL Albumin (3.5-5.0) g/dL 08/07/20 08/07/20 08/07/20 Range/Units 14:24 15:11 16:02 RBC (4.30-5.90) m/uL Hgb (13.0-17.5) gm/dL Hct (39.0-53.0) % RDW (11.5-15.5) % Plt Count (150-450) k/uL Neutrophils # (1.3-7.7) k/uL Lymphocytes # (1.0-4.8) k/uL ABG O2 Saturation (94-97) % Chloride (98-107) mmol/L BUN (9-20) mg/dL Creatinine (0.66-1.25) mg/dL Glucose (74-99) mg/dL POC Glucose (mg/dL) 130 H 123 H 105 H (75-99) mg/dL Ionized Calcium Tamara (4.5-5.3) mg/dL ALT (4-49) U/L Total Protein (6.3-8.2) g/dL Albumin (3.5-5.0) g/dL 08/07/20 08/07/20 08/07/20 Range/Units 17:20 18:12 19:06 RBC (4.30-5.90) m/uL Hgb (13.0-17.5) gm/dL Hct (39.0-53.0) % RDW (11.5-15.5) % Plt Count (150-450) k/uL Neutrophils # (1.3-7.7) k/uL Lymphocytes # (1.0-4.8) k/uL ABG O2 Saturation (94-97) % Chloride (98-107) mmol/L BUN (9-20) mg/dL Creatinine (0.66-1.25) mg/dL Glucose (74-99) mg/dL POC Glucose (mg/dL) 129 H 140 H 156 H (75-99) mg/dL Ionized Calcium Tamara (4.5-5.3) mg/dL ALT (4-49) U/L Total Protein (6.3-8.2) g/dL Albumin (3.5-5.0) g/dL 08/07/20 08/07/20 08/07/20 Range/Units 21:32 22:26 23:29 RBC (4.30-5.90) m/uL Hgb (13.0-17.5) gm/dL Hct (39.0-53.0) % RDW (11.5-15.5) % Plt Count (150-450) k/uL Neutrophils # (1.3-7.7) k/uL Lymphocytes # (1.0-4.8) k/uL ABG O2 Saturation (94-97) % Chloride (98-107) mmol/L BUN (9-20) mg/dL Creatinine (0.66-1.25) mg/dL Glucose (74-99) mg/dL POC Glucose (mg/dL) 136 H 128 H 127 H (75-99) mg/dL Ionized Calcium Tamara (4.5-5.3) mg/dL ALT (4-49) U/L Total Protein (6.3-8.2) g/dL Albumin (3.5-5.0) g/dL 08/08/20 08/08/20 08/08/20 Range/Units 01:08 02:57 03:56 RBC (4.30-5.90) m/uL Hgb (13.0-17.5) gm/dL Hct (39.0-53.0) % RDW (11.5-15.5) % Plt Count (150-450) k/uL Neutrophils # (1.3-7.7) k/uL Lymphocytes # (1.0-4.8) k/uL ABG O2 Saturation (94-97) % Chloride (98-107) mmol/L BUN (9-20) mg/dL Creatinine (0.66-1.25) mg/dL Glucose (74-99) mg/dL POC Glucose (mg/dL) 125 H 123 H 128 H (75-99) mg/dL Ionized Calcium Tamara (4.5-5.3) mg/dL ALT (4-49) U/L Total Protein (6.3-8.2) g/dL Albumin (3.5-5.0) g/dL 08/08/20 08/08/20 08/08/20 Range/Units 04:00 04:00 04:40 RBC 2.47 L (4.30-5.90) m/uL Hgb 7.9 L (13.0-17.5) gm/dL Hct 24.5 L (39.0-53.0) % RDW 17.8 H (11.5-15.5) % Plt Count 127 L (150-450) k/uL Neutrophils # 9.1 H (1.3-7.7) k/uL Lymphocytes # 0.4 L (1.0-4.8) k/uL ABG O2 Saturation 99.3 H (94-97) % Chloride 115 H (98-107) mmol/L BUN 78 H (9-20) mg/dL Creatinine 1.81 H (0.66-1.25) mg/dL Glucose 127 H (74-99) mg/dL POC Glucose (mg/dL) (75-99) mg/dL Ionized Calcium Tamara 5.9 H (4.5-5.3) mg/dL ALT 113 H (4-49) U/L Total Protein 4.5 L (6.3-8.2) g/dL Albumin 2.1 L (3.5-5.0) g/dL 08/08/20 08/08/20 08/08/20 Range/Units 06:09 08:15 09:18 RBC (4.30-5.90) m/uL Hgb (13.0-17.5) gm/dL Hct (39.0-53.0) % RDW (11.5-15.5) % Plt Count (150-450) k/uL Neutrophils # (1.3-7.7) k/uL Lymphocytes # (1.0-4.8) k/uL ABG O2 Saturation (94-97) % Chloride (98-107) mmol/L BUN (9-20) mg/dL Creatinine (0.66-1.25) mg/dL Glucose (74-99) mg/dL POC Glucose (mg/dL) 134 H 197 H 184 H (75-99) mg/dL Ionized Calcium Tamara (4.5-5.3) mg/dL ALT (4-49) U/L Total Protein (6.3-8.2) g/dL Albumin (3.5-5.0) g/dL 08/08/20 Range/Units 10:13 RBC (4.30-5.90) m/uL Hgb (13.0-17.5) gm/dL Hct (39.0-53.0) % RDW (11.5-15.5) % Plt Count (150-450) k/uL Neutrophils # (1.3-7.7) k/uL Lymphocytes # (1.0-4.8) k/uL ABG O2 Saturation (94-97) % Chloride (98-107) mmol/L BUN (9-20) mg/dL Creatinine (0.66-1.25) mg/dL Glucose (74-99) mg/dL POC Glucose (mg/dL) 167 H (75-99) mg/dL Ionized Calcium Tamara (4.5-5.3) mg/dL ALT (4-49) U/L Total Protein (6.3-8.2) g/dL Albumin (3.5-5.0) g/dL Microbiology - Last 24 Hours (Table) 08/02/20 21:48 Blood Culture - Preliminary Blood No Growth after 120 hours 08/02/20 19:25 Blood Culture - Preliminary Blood No Growth after 120 hours Assessment and Plan Assessment: 1. CAD s/p CABG with 2v bypass, PABLO to LAD, and SVG to posterior decending coronary artery 2. Paroxysmal Atrial Fibrillation, with RVR 3. 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 Pneumatosis, Ischemic Bowel, s/p small bowel resection 5. Acute Blood Loss Anemia, post-operative, resolved 6. Pneumoperitoneum secondary to chest tubes, resolving 7. CONNOR superimposed on CKD, stage III, worsening 8. Hypertension, essential 9. Hyperlipidemia 10. Type II DM, uncontrolled 11. Hypothyroidism 12. Obesity, BMI 30.5 13. Hyponatremia and Hyperkalemia 80 year old man with history of COPD, CKD III, HTN/HLD/CAD/DM, Obesity presented for symptomatic CAD and underwent 2v CABG with post-operative course complicated by respiratory failure secondary to COPD exacerbation, blood loss anemia, paroxysmal atrial fibrillation with RVR, and metabolic derangements. DM 2 - hold metformin - Inulin subcutaneous with sliding scale insulin coverage, check blood sugars every before meals and at bedtime, Levemir added on 07/21. - Blood sugars currently controlled, follow blood sugars closely - A1C from 06/21/2020 5.2, anticipate discharge home back on metformin which may be able to come off in the near future in the outpatient setting. Small Bowel Ischemia - surgery consult - POD #15 s/p resection/anastamosis, POD #5 anastamosis take down and diverting ileostomy - on daptomycin/meropenem/eraxis - MRSA nares negative A-fib with RVR On metoprolol 2.5 IV q6h Off cardizem gtt Eliquis held due to bleeding, now on heparin q8h for DVT PPx CONNOR on CKD stage III Baseline cr 1.4-1.5 Likely cardiorenal syndrome, patient received contrast earlier in the admission. Try to avoid IV fluids Recheck in am Avoid nephrotoxic meds Nephrology is following Acute hyponatremia Likely sec to renal failure Monitor Nephrology consulted, checking urine and plasma osmolalities as well as urine sodium. Hyperkalemia Kayexalate 15 g, follow K in a.m. Pneumoperitoneum suspect secondary to mediastinal chest tubes -Tube d/melody -Resolved. Constipation On Senokot, MiraLAX Had a bowel movement today Acute blood loss anemia and thrombocytopenia, anticipated outcome of surgery - follow CBC - transfuse as indicated COPD with acute exacerbation - On steroids, we'll wean down today from 60 to 40 mg every 6 hours. - DuoNebs - on spiriva and advair at home Coronary artery disease -Status post coronary artery bypass grafting -Cardiothoracic and cardiology following HTN - meds per CT surgery - follow BP Hypothyroidism status post partial thyroidectomy - synthroid Morbid obesity with BMI 30.5 -Outpatient structured weight loss Chronic: ADDY Jacobs's Thank you for allowing us to participate in the care of this pleasant patient. Do not hesitate to contact us with questions. Someone can be reached from the [facility] hospitalist group all hours of the day at [phone] or via [employer].
[2020-08-08 11:13] LABS: Glucose,Whole Blood 167 mg/dL (75-99)
[2020-08-08] MEDS: INSULIN REGULAR 100 UNIT in SODIUM CHLORIDE 0.9% 100 ML IV SCH (11:14)
[2020-08-08] MEDS: FAT EMULSION 20% 250 ML IV SCH (11:33)
--- NOTE | 2020-08-08 11:37 | P.PN ---
Subjective Progress Note Date: 08/08/20 CHIEF COMPLAINT: Status post CABG 2 vessels HISTORY OF PRESENT ILLNESS: Patient remains in the ICU. He was extubated. He is on TPN for nutrition support. Patient passed bowel movement per rectum with no visible blood last night. Ileostomy still has no gas or stool present. Afebrile. WBC 10.2 hemoglobin 7.9 creatinine 1.81 Picture of incision site reviewed with nursing staff. There is a small 1 cm area of eschar tissue noted at the distal aspect of the incision. Patient has wound VAC in place PHYSICAL EXAM: VITAL SIGNS: Reviewed. GENERAL: Well-developed in no acute distress. HEENT: No sclera icterus. Extraocular movements grossly intact. Moist buccal mucosa. Head is atraumatic, normocephalic. ABDOMEN: Soft. Abdominal incision with wound VAC in place. Ileostomy right side of abdomen NEUROLOGIC: Intubated and sedated ASSESSMENT: 1. Intraperitoneal hemorrhage status post exploratory laparotomy, washout of peritoneal cavity and ileostomy on 08/02/2020 2. Ischemic small bowel with evidence of pneumatosis status post small bowel resection on 07/24/2020 3. Acute hypoxic respiratory failure requiring mechanical ventilation 4. symptomatic triple-vessel coronary artery disease status post 2 vessel coronary bypass grafting surgery 5. Diabetes mellitus type 2 PLAN: -Continue wound VAC -Continue antibiotics -Continue supportive care -DVT prophylaxis subcu Heparin and GI prophylaxis Protonix Physician [employer] note has been reviewed by physician. Signing provider agrees with the documented findings, assessment, and plan of care. Objective - Vital Signs Vital signs: Vital Signs Temp 98.6 F 08/08/20 08:00 Pulse 81 08/08/20 11:00 Resp 27 H 08/08/20 11:00 BP 116/79 08/08/20 11:00 Pulse Ox 98 08/08/20 11:00 Intake & Output 08/07/20 08/08/20 08/08/20 18:59 06:59 18:59 Intake Total 2345.195 2393.155 532.757 Output Total 1525 1950 455 Balance 820.195 443.155 77.757 Weight 107.7 kg 107 kg Intake: IV 1811 1174 452 Anidulafungin 200 mg In 100 Sodium Chloride 0.9% 200 ml @ 84 mls/hr IVPB ONCE ONE Rx#:[id number] Sodium Chloride 0.9% 1, 220 220 40 000 ml @ 20 mls/hr IV . Q24H WADE Rx#:[id number] TPN 1558 915 300 pressure bag 33 39 12 Intake, IV Titration 081.322 6353.155 80.757 Amount Amiodarone 300 mg In 152.083 Dextrose 5% in Water 250 ml @ 0.25 MG/MIN 12.5 mls /hr IV .Q20H WADE Rx#: [id number] Dexmedetomidine/0.9% NaCl 187.327 291.188 42.357 (Pmx) 400 mcg In Empty Bag 1 bag @ Titrate IV . Q0M WADE Rx#:[id number] Insulin Regular 100 unit 52.109 56.717 38.400 In Sodium Chloride 0.9% 100 ml @ Per Protocol IV .Q0M WADE Rx#:[id number] Norepinephrine 8 mg In 142.676 Sodium Chloride 0.9% 250 ml @ 0.05 MCG/KG/MIN 10. 846 mls/hr IV .[id number] WADE Rx#:[id number] Sodium Acetate 50 meq 871.25 Potassium Acetate 28 meq In Amino Acids 5 %/ Dextrose 20 % 1,000 ml @ 75 mls/hr IV .BY DURATION WADE Rx#:[id number] Output: Gastric Drainage 150 200 Drainage 75 Abdomen 75 Urine 1375 1660 455 Emesis 0 Other 15 Other: Voiding Method Indwelling Catheter Indwelling Catheter Indwelling Catheter # Voids 0 # Bowel Movements 1 ABP, PAP, CO, CI - Last Documented Arterial Blood Pressure 139/48 Pulmonary Artery Pressure 33/14 Cardiac Output 6.7 Cardiac Index 3.1 - Labs CBC & Chem 7: 08/08/20 04:00 08/08/20 04:00 Labs: Abnormal Lab Results - Last 24 Hours (Table) 08/07/20 08/07/20 08/07/20 Range/Units 12:10 13:08 14:24 RBC (4.30-5.90) m/uL Hgb (13.0-17.5) gm/dL Hct (39.0-53.0) % RDW (11.5-15.5) % Plt Count (150-450) k/uL Neutrophils # (1.3-7.7) k/uL Lymphocytes # (1.0-4.8) k/uL ABG O2 Saturation (94-97) % Chloride (98-107) mmol/L BUN (9-20) mg/dL Creatinine (0.66-1.25) mg/dL Glucose (74-99) mg/dL POC Glucose (mg/dL) 161 H 156 H 130 H (75-99) mg/dL Ionized Calcium Tamara (4.5-5.3) mg/dL ALT (4-49) U/L Total Protein (6.3-8.2) g/dL Albumin (3.5-5.0) g/dL 08/07/20 08/07/20 08/07/20 Range/Units 15:11 16:02 17:20 RBC (4.30-5.90) m/uL Hgb (13.0-17.5) gm/dL Hct (39.0-53.0) % RDW (11.5-15.5) % Plt Count (150-450) k/uL Neutrophils # (1.3-7.7) k/uL Lymphocytes # (1.0-4.8) k/uL ABG O2 Saturation (94-97) % Chloride (98-107) mmol/L BUN (9-20) mg/dL Creatinine (0.66-1.25) mg/dL Glucose (74-99) mg/dL POC Glucose (mg/dL) 123 H 105 H 129 H (75-99) mg/dL Ionized Calcium Tamara (4.5-5.3) mg/dL ALT (4-49) U/L Total Protein (6.3-8.2) g/dL Albumin (3.5-5.0) g/dL 08/07/20 08/07/20 08/07/20 Range/Units 18:12 19:06 21:32 RBC (4.30-5.90) m/uL Hgb (13.0-17.5) gm/dL Hct (39.0-53.0) % RDW (11.5-15.5) % Plt Count (150-450) k/uL Neutrophils # (1.3-7.7) k/uL Lymphocytes # (1.0-4.8) k/uL ABG O2 Saturation (94-97) % Chloride (98-107) mmol/L BUN (9-20) mg/dL Creatinine (0.66-1.25) mg/dL Glucose (74-99) mg/dL POC Glucose (mg/dL) 140 H 156 H 136 H (75-99) mg/dL Ionized Calcium Tamara (4.5-5.3) mg/dL ALT (4-49) U/L Total Protein (6.3-8.2) g/dL Albumin (3.5-5.0) g/dL 08/07/20 08/07/20 08/08/20 Range/Units 22:26 23:29 01:08 RBC (4.30-5.90) m/uL Hgb (13.0-17.5) gm/dL Hct (39.0-53.0) % RDW (11.5-15.5) % Plt Count (150-450) k/uL Neutrophils # (1.3-7.7) k/uL Lymphocytes # (1.0-4.8) k/uL ABG O2 Saturation (94-97) % Chloride (98-107) mmol/L BUN (9-20) mg/dL Creatinine (0.66-1.25) mg/dL Glucose (74-99) mg/dL POC Glucose (mg/dL) 128 H 127 H 125 H (75-99) mg/dL Ionized Calcium Tamara (4.5-5.3) mg/dL ALT (4-49) U/L Total Protein (6.3-8.2) g/dL Albumin (3.5-5.0) g/dL 08/08/20 08/08/20 08/08/20 Range/Units 02:57 03:56 04:00 RBC (4.30-5.90) m/uL Hgb (13.0-17.5) gm/dL Hct (39.0-53.0) % RDW (11.5-15.5) % Plt Count (150-450) k/uL Neutrophils # (1.3-7.7) k/uL Lymphocytes # (1.0-4.8) k/uL ABG O2 Saturation (94-97) % Chloride 115 H (98-107) mmol/L BUN 78 H (9-20) mg/dL Creatinine 1.81 H (0.66-1.25) mg/dL Glucose 127 H (74-99) mg/dL POC Glucose (mg/dL) 123 H 128 H (75-99) mg/dL Ionized Calcium Tamara 5.9 H (4.5-5.3) mg/dL ALT 113 H (4-49) U/L Total Protein 4.5 L (6.3-8.2) g/dL Albumin 2.1 L (3.5-5.0) g/dL 08/08/20 08/08/20 08/08/20 Range/Units 04:00 04:40 06:09 RBC 2.47 L (4.30-5.90) m/uL Hgb 7.9 L (13.0-17.5) gm/dL Hct 24.5 L (39.0-53.0) % RDW 17.8 H (11.5-15.5) % Plt Count 127 L (150-450) k/uL Neutrophils # 9.1 H (1.3-7.7) k/uL Lymphocytes # 0.4 L (1.0-4.8) k/uL ABG O2 Saturation 99.3 H (94-97) % Chloride (98-107) mmol/L BUN (9-20) mg/dL Creatinine (0.66-1.25) mg/dL Glucose (74-99) mg/dL POC Glucose (mg/dL) 134 H (75-99) mg/dL Ionized Calcium Tamara (4.5-5.3) mg/dL ALT (4-49) U/L Total Protein (6.3-8.2) g/dL Albumin (3.5-5.0) g/dL 08/08/20 08/08/20 08/08/20 Range/Units 08:15 09:18 10:13 RBC (4.30-5.90) m/uL Hgb (13.0-17.5) gm/dL Hct (39.0-53.0) % RDW (11.5-15.5) % Plt Count (150-450) k/uL Neutrophils # (1.3-7.7) k/uL Lymphocytes # (1.0-4.8) k/uL ABG O2 Saturation (94-97) % Chloride (98-107) mmol/L BUN (9-20) mg/dL Creatinine (0.66-1.25) mg/dL Glucose (74-99) mg/dL POC Glucose (mg/dL) 197 H 184 H 167 H (75-99) mg/dL Ionized Calcium Tamara (4.5-5.3) mg/dL ALT (4-49) U/L Total Protein (6.3-8.2) g/dL Albumin (3.5-5.0) g/dL 08/08/20 Range/Units 11:10 RBC (4.30-5.90) m/uL Hgb (13.0-17.5) gm/dL Hct (39.0-53.0) % RDW (11.5-15.5) % Plt Count (150-450) k/uL Neutrophils # (1.3-7.7) k/uL Lymphocytes # (1.0-4.8) k/uL ABG O2 Saturation (94-97) % Chloride (98-107) mmol/L BUN (9-20) mg/dL Creatinine (0.66-1.25) mg/dL Glucose (74-99) mg/dL POC Glucose (mg/dL) 167 H (75-99) mg/dL Ionized Calcium Tamara (4.5-5.3) mg/dL ALT (4-49) U/L Total Protein (6.3-8.2) g/dL Albumin (3.5-5.0) g/dL Microbiology - Last 24 Hours (Table) 08/02/20 21:48 Blood Culture - Preliminary Blood No Growth after 120 hours 08/02/20 19:25 Blood Culture - Preliminary Blood No Growth after 120 hours
[2020-08-08] MEDS: ACETYLCYSTEINE 800 MG/4 ML VIAL INHALATION SCH ×2 (12:12→20:00)
[2020-08-08 12:13] LABS: Glucose,Whole Blood 174 mg/dL (75-99)
[2020-08-08] MEDS: METOPROLOL TARTRATE 5 MG/5 ML VIAL IVP SCH ×3 (12:48→23:43)
[2020-08-08 13:07] LABS: Glucose,Whole Blood 139 mg/dL (75-99)
[2020-08-08 14:19] LABS: Glucose,Whole Blood 116 mg/dL (75-99)
[2020-08-08 15:16] LABS: Glucose,Whole Blood 138 mg/dL (75-99)
[2020-08-08] MEDS ORDERED: METOPROLOL TARTRATE 5 MG/5 ML VIAL IVP STA (15:43)
[2020-08-08 15:59] LABS: Glucose,Whole Blood 145 mg/dL (75-99)
[2020-08-08] MEDS: AMIODARONE 300 MG in DEXTROSE 5% IN WATER 250 ML IV SCH ×4 (16:54→19:54)
--- NOTE | 2020-08-08 17:25 | PN ---
PROGRESS NOTE FOLLOW-UP NOTE: Francisco is a 80-year-old gentleman who is status post CABG. He is postoperative day number 21. He has mild LV dysfunction, hypertension, dyslipidemia, COPD, and he has had intermittent episodes of atrial fibrillation. He is not a candidate for anticoagulation secondary to GI bleed. He has small bowel ischemia and underwent resection for the same. He has had prolonged ventilation. On exam today, afebrile. Heart rate is 88 beats per minute, blood pressure 116/79, respiratory rate 18. Chest exam reveals diminished air entry bilaterally with occasional rhonchi. Heart exam reveals first and second heart sounds. No gallop. Abdomen is soft. Examination of extremities revealed 1+ edema. Peripheral pulses are felt. Labs show a hemoglobin of 7.9, platelet count is 127. Potassium is 4.5. BUN is elevated at 78, creatinine is 1.8. ASSESSMENT: 1. Coronary artery disease, status post coronary artery bypass grafting. 2. Respiratory failure. 3. Paroxysmal atrial fibrillation. PLAN: Patient will continue current medications. MMODL / IJN: [id number] /
[2020-08-08 17:26] LABS: Glucose,Whole Blood 137 mg/dL (75-99)
[2020-08-08 18:54] LABS: Glucose,Whole Blood 124 mg/dL (75-99)
[2020-08-08 19:14] LABS: Glucose,Whole Blood 107 mg/dL (75-99)
[2020-08-08] MEDS: SODIUM CHLORIDE 0.9% 1,000 ML IV SCH (20:32)
[2020-08-08] MEDS: NOREPINEPHRINE 8 MG in SODIUM CHLORIDE 0.9% 250 ML IV SCH (20:34)
[2020-08-08 21:05] LABS: Glucose,Whole Blood 156 mg/dL (75-99)
--- NOTE | 2020-08-08 22:10 | PN ---
PROGRESS NOTE DATE OF SERVICE: 08/08/2020 REASON FOR FOLLOWUP: Leukocytosis and abdominal infection. INTERVAL HISTORY: The patient is currently afebrile. The patient has been extubated. The patient is currently breathing comfortably on nasal cannula oxygen. He was lethargic, unable to provide any history. No vomiting or diarrhea reported by nursing staff. PHYSICAL EXAMINATION: Blood pressure 136/73, pulse of 56, temperature 98. He is 100% on 2 L nasal cannula. General description is an elderly male lying in bed in no distress. RESPIRATORY SYSTEM: Unlabored breathing. Coarse breath sounds bilaterally. No wheeze. HEART: S1, S2. Regular rate and rhythm. ABDOMEN: Soft. No tenderness. LABS: Hemoglobin 7.9, white count 10.2. BUN of 17, creatinine 1.81. DIAGNOSTIC IMPRESSION AND PLAN: Patient with elevated white count which is likely multifactorial in this patient who did have ischemic small bowel, status post resection, and possibly secondary peritonitis plus/minus related to his , which has been discontinued. Patient is currently on meropenem, daptomycin and Eraxis. White count normalized. To continue current broad-spectrum antibiotic and monitor his clinical course closely. Continue with supportive care. MMODL / IJN: [id number] /
[2020-08-08 22:47] LABS: Glucose,Whole Blood 183 mg/dL (75-99)
[2020-08-08 23:50] LABS: Glucose,Whole Blood 155 mg/dL (75-99)
[2020-08-09] MEDS: INSULIN REGULAR 100 UNIT in SODIUM CHLORIDE 0.9% 100 ML IV SCH ×2 (00:11→21:00)
[2020-08-09 01:08] LABS: Glucose,Whole Blood 134 mg/dL (75-99)
[2020-08-09] MEDS: 1: MVI, ADULT NO.4 WITH VIT K 10 ML, TRACE (CONC-1ML/DOSE) 1 ML, SODIUM ACETATE 50 MEQ, IV SCH ×20 (01:16→21:20)
[2020-08-09] MEDS: HYDROmorphone 1 MG/ML 1 ML SYRINGE IVP PRN ×6 (01:22→21:26)
[2020-08-09 03:06] LABS: Glucose,Whole Blood 114 mg/dL (75-99)
[2020-08-09 03:22] LABS: Anisocytosis Slight; Basophils % (A) 0 %; Eosinophils # (A) 0.1 k/uL (0-0.7); Eosinophils % (A) 1 %; HGB 8.6 gm/dL (13.0-17.5); Hypochromasia Marked; Lymphocytes # (A) 0.4 k/uL (1.0-4.8); Lymphocytes % (A) 3 %; MCH 30.6 pg (25.0-35.0); MCHC 30.8 g/dL (31.0-37.0); MCV 99.4 fL (80.0-100.0); Macrocytosis Slight; Mean Platelet Volume 8.4; Monocytes # (A) 0.7 k/uL (0-1.0); Monocytes % (A) 5 %; Neutrophils # (A) 12.2 k/uL (1.3-7.7); Neutrophils % (A) 90 %; Platelet Count 179 k/uL (150-450); Poikilocytosis Moderate; RBC 2.82 m/uL (4.30-5.90); RDW 18.1 % (11.5-15.5); WBC 13.6 k/uL (3.8-10.6)
[2020-08-09 03:26] LABS: Ionized Calcium 5.7 mg/dL (4.5-5.3)
[2020-08-09 03:40] LABS: Albumin 2.2 g/dL (3.5-5.0); Calcium 8.9 mg/dL (8.4-10.2); Magnesium 2.1 mg/dL (1.6-2.3); Phosphorus 2.9 mg/dL (2.5-4.5); Potassium 4.4 mmol/L (3.5-5.1); Total Bilirubin 0.8 mg/dL (0.2-1.3); Total Protein 4.9 g/dL (6.3-8.2)
[2020-08-09] MEDS: MEROPENEM 1 GM in SODIUM CHLORIDE 0.9% 100 ML IVPB SCH ×2 (04:37→17:18)
[2020-08-09 04:50] LABS: Glucose,Whole Blood 152 mg/dL (75-99)
[2020-08-09 05:59] LABS: Glucose,Whole Blood 189 mg/dL (75-99)
[2020-08-09] MEDS: METOPROLOL TARTRATE 5 MG/5 ML VIAL IVP SCH ×3 (06:04→17:18)
[2020-08-09 06:59] LABS: Glucose,Whole Blood 144 mg/dL (75-99)
--- NOTE | 2020-08-09 07:24 | P.PN ---
Subjective Progress Note Date: 08/09/20 Principal diagnosis: Symptomatic triple-vessel coronary artery disease, mild left ventricular dysfunction. Previuos medical history of stenting to his right coronary artery in 2002, hypertension, hyperlipidemia, hypothyroid status post partial thyroidectomy, previous tobacco dependence quit smoking 20 years ago, moderate chronic obstructive pulmonary disease with preoperative FEV1 of 56% of predicted value, bullous emphysema, remote history of pneumonia, type 2 diabetes mellitus with a preoperative hemoglobin A1c of 5.2%, chronic kidney disease stage III with a baseline creatinine of 1.4-1.5, family history of premature coronary artery disease with brother having had CABG at less than 50 years old. POD #22 double coronary artery bypass grafting using the left internal mammary artery to left anterior descending coronary artery, reverse greater saphenous vein graft from the aorta to the posterior descending coronary artery. Exclusion of the left atrial appendage using a 35 mm Atriclip, endoscopic harvesting of the right greater saphenous vein from the groin to above the ankle level, graft flow measurement using the wunderloopim system, intraoperative transesophageal echocardiogram and epi-aortic scanning. Postoperative acute blood loss anemia, expected outcome from hemodilution and cardiopulmonary bypass. Postoperative paroxysmal atrial fibrillation, unexpected but common outcome after open heart surgery. Pneumoperitoneum, unexpected Acute on chronic kidney disease secondary to ATN Pneumatosis of the small bowel POD #16 ischemic bowel, small bowel resection Acute hypoxic respiratory failure with reintubation, prolonged mechanical ventilation, unexpected Acute abdomen, intraperitoneal hemorrhage POD #7 Exploratory laparotomy, washout of peritoneal cavity, ileostomy with small bowel resection Patient's currently laying in the intensive care unit on nasal cannula, was extubated yesterday. Unable to communicate verbally, but does nod/shake head and follows commands, no gag reflex. Currently in normal sinus rhythm, continues on IV amiodarone. NG tube in place to low intermittent suction with 700 mL green fluid last 24 hours, hypoactive bowel sounds. Abdomen is soft, remains on TPN. Remains on IV Eraxis, daptomyocin, meropenem. Sputum culture from 08/03/20 demonstrating aurora albicans, blood culture negative, CVC catheter tip removed 08/03/20 with staph epidermis. Patient remains afebrile, white blood cell count 13.6. Patient has had bowel movements per rectum despite ileostomy. Wound vac in place to mid abdominal incision. Patient does tend to favor head tilt to left side with possible left facial droop, will turn head to right side to command, equal but weak bilaterally. Requires frequent oropharengeal suctioning. Objective - Vital Signs Vital signs: Vital Signs Temp 98.8 F 08/09/20 05:00 Pulse 92 08/09/20 06:00 Resp 26 H 08/09/20 06:00 BP 126/62 08/09/20 06:00 Pulse Ox 94 L 08/09/20 06:00 Intake & Output 08/08/20 08/08/20 08/09/20 06:59 18:59 06:59 Intake Total 2393.155 2402.882 1109.200 Output Total 1950 1685 2275 Balance 443.155 717.882 -1165.800 Weight 107 kg 104.9 kg Intake: IV 1174 1058 1046 Anidulafungin 200 mg In 100 Sodium Chloride 0.9% 200 ml @ 84 mls/hr IVPB ONCE ONE Rx#:[id number] Sodium Chloride 0.9% 1, 220 100 110 000 ml @ 20 mls/hr IV . Q24H [facility] Rx#:[id number] TPN 915 825 900 pressure bag 39 33 36 Intake, IV Titration 8707.222 5205.882 63.200 Amount Amiodarone 300 mg In 250 Dextrose 5% in Water 250 ml @ 0.25 MG/MIN 12.5 mls /hr IV .Q20H [facility] Rx#: [id number] Dexmedetomidine/0.9% NaCl 291.188 42.357 (Pmx) 400 mcg In Empty Bag 1 bag @ Titrate IV . Q0M [facility] Rx#:[id number] Insulin Regular 100 unit 56.717 96.275 63.200 In Sodium Chloride 0.9% 100 ml @ Per Protocol IV .Q0M [facility] Rx#:[id number] Sodium Acetate 50 meq 871.25 956.25 Potassium Acetate 28 meq In Amino Acids 5 %/ Dextrose 20 % 1,000 ml @ 75 mls/hr IV .BY DURATION [facility] Rx#:[id number] Output: Gastric Drainage 200 150 450 Drainage 75 100 Abdomen 75 100 Urine 1660 1535 1725 Other 15 Other: Voiding Method Indwelling Catheter Indwelling Catheter Indwelling Catheter # Bowel Movements 1 1 ABP, PAP, CO, CI - Last Documented Arterial Blood Pressure 135/62 Pulmonary Artery Pressure 33/14 Cardiac Output 6.7 Cardiac Index 3.1 - Constitutional General appearance: Present: cooperative, no acute distress, obese - Respiratory Details: Lungs sounds diminished bilaterally with coarse breath sounds in the bases. Respirations even, non-labored. Currently on 3LPM NC with oxygen saturation 96%. Strong cough but requires suctioning to clear secretions. - Cardiovascular Details: S1, S2 present. Regular rate and rhythm, normal sinus rhythm on telemetry with rate in the 80s. Sternum stable. Palpable peripheral pulses bilaterally. Generalized upper extremity edema present. Heart hugger, antiembolism stockings, SCDs present. Right brachial PICC line, left radial arterial line present. - Gastrointestinal Gastrointestinal Comment(s): Abdomen soft, nontender, nondistended. Very hypoactive bowel sounds present. NG tube present to low intermittent suction with 700 mL green drainage in 24 hours. Ileostomy present to RLQ, stoma pink and moist, minimal serous output. Positive BM per rectum - Genitourinary Genitourinary Comment(s): Villafana catheter present draining clear, yellow urine. Output 100-150 mL/h overnight, 3260 mL in the last 24 hours - Integumentary Integumentary Comment(s): Skin is warm and dry. Anterior chest incision well approximated and covered with dry intact dressing. Right lower extremity EVH site well approximated. Mid abdominal incision open, wound vac in place. The patient has shear injury beneath his right shoulder, Silvadene cream applied, dry dressing in place - Neurologic Neurologic: Present: CNII-XII intact - Musculoskeletal Musculoskeletal: Present: generalized weakness - Psychiatric Psychiatric: Present: appropriate affect - Allied health notes Allied health notes reviewed: nursing - Labs CBC & Chem 7: 08/09/20 03:00 08/09/20 03:00 Labs: Abnormal Lab Results - Last 24 Hours (Table) 08/08/20 08/08/20 08/08/20 Range/Units 04:00 08:15 09:18 WBC (3.8-10.6) k/uL RBC 2.47 L (4.30-5.90) m/uL Hgb 7.9 L (13.0-17.5) gm/dL Hct 24.5 L (39.0-53.0) % MCHC (31.0-37.0) g/dL RDW 17.8 H (11.5-15.5) % Plt Count 127 L (150-450) k/uL Neutrophils # 9.1 H (1.3-7.7) k/uL Lymphocytes # 0.4 L (1.0-4.8) k/uL Chloride (98-107) mmol/L BUN (9-20) mg/dL Creatinine (0.66-1.25) mg/dL Glucose (74-99) mg/dL POC Glucose (mg/dL) 197 H 184 H (75-99) mg/dL Ionized Calcium Tamara (4.5-5.3) mg/dL ALT (4-49) U/L Total Protein (6.3-8.2) g/dL Albumin (3.5-5.0) g/dL 08/08/20 08/08/20 08/08/20 Range/Units 10:13 11:10 12:02 WBC (3.8-10.6) k/uL RBC (4.30-5.90) m/uL Hgb (13.0-17.5) gm/dL Hct (39.0-53.0) % MCHC (31.0-37.0) g/dL RDW (11.5-15.5) % Plt Count (150-450) k/uL Neutrophils # (1.3-7.7) k/uL Lymphocytes # (1.0-4.8) k/uL Chloride (98-107) mmol/L BUN (9-20) mg/dL Creatinine (0.66-1.25) mg/dL Glucose (74-99) mg/dL POC Glucose (mg/dL) 167 H 167 H 174 H (75-99) mg/dL Ionized Calcium Tamara (4.5-5.3) mg/dL ALT (4-49) U/L Total Protein (6.3-8.2) g/dL Albumin (3.5-5.0) g/dL 08/08/20 08/08/20 08/08/20 Range/Units 13:05 14:12 15:15 WBC (3.8-10.6) k/uL RBC (4.30-5.90) m/uL Hgb (13.0-17.5) gm/dL Hct (39.0-53.0) % MCHC (31.0-37.0) g/dL RDW (11.5-15.5) % Plt Count (150-450) k/uL Neutrophils # (1.3-7.7) k/uL Lymphocytes # (1.0-4.8) k/uL Chloride (98-107) mmol/L BUN (9-20) mg/dL Creatinine (0.66-1.25) mg/dL Glucose (74-99) mg/dL POC Glucose (mg/dL) 139 H 116 H 138 H (75-99) mg/dL Ionized Calcium Tamara (4.5-5.3) mg/dL ALT (4-49) U/L Total Protein (6.3-8.2) g/dL Albumin (3.5-5.0) g/dL 08/08/20 08/08/20 08/08/20 Range/Units 15:58 17:25 18:27 WBC (3.8-10.6) k/uL RBC (4.30-5.90) m/uL Hgb (13.0-17.5) gm/dL Hct (39.0-53.0) % MCHC (31.0-37.0) g/dL RDW (11.5-15.5) % Plt Count (150-450) k/uL Neutrophils # (1.3-7.7) k/uL Lymphocytes # (1.0-4.8) k/uL Chloride (98-107) mmol/L BUN (9-20) mg/dL Creatinine (0.66-1.25) mg/dL Glucose (74-99) mg/dL POC Glucose (mg/dL) 145 H 137 H 124 H (75-99) mg/dL Ionized Calcium Tamara (4.5-5.3) mg/dL ALT (4-49) U/L Total Protein (6.3-8.2) g/dL Albumin (3.5-5.0) g/dL 08/08/20 08/08/20 08/08/20 Range/Units 19:12 21:03 22:46 WBC (3.8-10.6) k/uL RBC (4.30-5.90) m/uL Hgb (13.0-17.5) gm/dL Hct (39.0-53.0) % MCHC (31.0-37.0) g/dL RDW (11.5-15.5) % Plt Count (150-450) k/uL Neutrophils # (1.3-7.7) k/uL Lymphocytes # (1.0-4.8) k/uL Chloride (98-107) mmol/L BUN (9-20) mg/dL Creatinine (0.66-1.25) mg/dL Glucose (74-99) mg/dL POC Glucose (mg/dL) 107 H 156 H 183 H (75-99) mg/dL Ionized Calcium Tamara (4.5-5.3) mg/dL ALT (4-49) U/L Total Protein (6.3-8.2) g/dL Albumin (3.5-5.0) g/dL 08/08/20 08/09/20 08/09/20 Range/Units 23:49 01:07 03:00 WBC (3.8-10.6) k/uL RBC (4.30-5.90) m/uL Hgb (13.0-17.5) gm/dL Hct (39.0-53.0) % MCHC (31.0-37.0) g/dL RDW (11.5-15.5) % Plt Count (150-450) k/uL Neutrophils # (1.3-7.7) k/uL Lymphocytes # (1.0-4.8) k/uL Chloride 115 H (98-107) mmol/L BUN 62 H (9-20) mg/dL Creatinine 1.54 H (0.66-1.25) mg/dL Glucose 122 H (74-99) mg/dL POC Glucose (mg/dL) 155 H 134 H (75-99) mg/dL Ionized Calcium Tamara 5.7 H (4.5-5.3) mg/dL ALT 96 H (4-49) U/L Total Protein 4.9 L (6.3-8.2) g/dL Albumin 2.2 L (3.5-5.0) g/dL 08/09/20 08/09/20 08/09/20 Range/Units 03:00 03:05 04:48 WBC 13.6 H (3.8-10.6) k/uL RBC 2.82 L (4.30-5.90) m/uL Hgb 8.6 L (13.0-17.5) gm/dL Hct 28.0 L (39.0-53.0) % MCHC 30.8 L (31.0-37.0) g/dL RDW 18.1 H (11.5-15.5) % Plt Count (150-450) k/uL Neutrophils # 12.2 H (1.3-7.7) k/uL Lymphocytes # 0.4 L (1.0-4.8) k/uL Chloride (98-107) mmol/L BUN (9-20) mg/dL Creatinine (0.66-1.25) mg/dL Glucose (74-99) mg/dL POC Glucose (mg/dL) 114 H 152 H (75-99) mg/dL Ionized Calcium Tamara (4.5-5.3) mg/dL ALT (4-49) U/L Total Protein (6.3-8.2) g/dL Albumin (3.5-5.0) g/dL 08/09/20 Range/Units 05:57 WBC (3.8-10.6) k/uL RBC (4.30-5.90) m/uL Hgb (13.0-17.5) gm/dL Hct (39.0-53.0) % MCHC (31.0-37.0) g/dL RDW (11.5-15.5) % Plt Count (150-450) k/uL Neutrophils # (1.3-7.7) k/uL Lymphocytes # (1.0-4.8) k/uL Chloride (98-107) mmol/L BUN (9-20) mg/dL Creatinine (0.66-1.25) mg/dL Glucose (74-99) mg/dL POC Glucose (mg/dL) 189 H (75-99) mg/dL Ionized Calcium Tamara (4.5-5.3) mg/dL ALT (4-49) U/L Total Protein (6.3-8.2) g/dL Albumin (3.5-5.0) g/dL Microbiology - Last 24 Hours (Table) 08/02/20 21:48 Blood Culture - Final Blood No Growth after 144 hours 08/02/20 19:25 Blood Culture - Final Blood No Growth after 144 hours 08/03/20 12:20 Catheter Tip Culture - Final Catheter Tip Staphylococcus epidermidis - Imaging and Cardiology Chest x-ray: image reviewed Assessment and Plan Assessment: 1. Symptomatic triple-vessel coronary artery disease, status post 2 vessel CABG 2. Mild left ventricular dysfunction 3. Previuos history of stenting to his right coronary artery in 2002 4. Hypertension 5. Hyperlipidemia 6. Hypothyroid status post partial thyroidectomy 7. Previous tobacco dependence with bullous emphysema 8. Moderate chronic obstructive pulmonary disease with preoperative FEV1 of 56% of predicted value 9. Remote history of pneumonia 10. Type 2 diabetes mellitus with a preoperative hemoglobin A1c of 5.2% 11. Chronic kidney disease stage III with a baseline creatinine of 1.4-1.5 12. Family history of premature coronary artery disease with brother having had CABG at less than 50 years old 13. Postoperative acute blood loss anemia, expected outcome 14. Postoperative paroxysmal atrial fibrillation, unexpected, status post exclusion of the left atrial appendage 15. Pneumoperitoneum, unexpected 16. Acute on chronic kidney disease with hyponatremia, hyperkalemia 17. Pneumatosis of the small bowel, status post small bowel resection 18. Sputum culture positive for pseudomonas fluorescens, second sputum positive for aurora 19. Acute hypoxic respiratory failure with reintubation, prolonged mechanical ventilation 20. Acute abdomen, intraperitoneal hemorrhage, S/P exploratory laparotomy, washout of peritoneal cavity, ileostomy with small bowel resection Plan: 1. Continue low dose aspirin, IV lopressor. Will increase IV lopressor to 5 mg IVP every 6 hours 2. Continue IV amiodarone for afib. No anticoagulation due to GIB 3. Wean oxygen as tolerated. Bronchodilators, inhaled steroids per pulmonology management. 4. Will monitor daily labs and chest x-rays. 5. GI/DVT prophylaxis. 6. Pain control with current medication regimen. 7. Insulin management per Dr. Polk 8. Continue TPN per RD. No tube feedings per Dr. Dempsey. Keep 9. Nephrology following. Avoid nephrotoxic agents. 10. Strict accurate intake and output, daily weight 11. Continue IV Eraxis day #5, meropenem day#3, daptomycin day#5 per infectious disease. 12. Wound vac to be changed -- by general surgery 13. More recommendations to follow based on patient's clinical course. Time with Patient: Greater than 30
--- NOTE | 2020-08-09 07:27 | XR ---
EXAMINATION TYPE: XR chest 1V portable DATE OF EXAM: 08/09/2020 HISTORY: Shortness of breath. COMPARISON: None. TECHNIQUE: Single view of the chest is submitted. FINDINGS: Endotracheal tube has been removed. NG tube is seen coursing into the stomach. Right-sided PICC line unchanged in position. Perihilar and basilar infiltrates and small effusions persist unchanged. The heart is stable. Hilar and mediastinal structures are within normal limits. Degenerative changes are seen of the dorsal spine. IMPRESSION: 1. Essentially stable chest. Endotracheal tube removal.
[2020-08-09 07:48] LABS: Glucose,Whole Blood 139 mg/dL (75-99)
[2020-08-09] MEDS: IPRATROPIUM-ALBUTEROL 3 ML NEB INHALATION SCH ×4 (07:54→19:44)
[2020-08-09] MEDS: FORMOTEROL FUMARATE 20 MCG/2 ML NEBU INHALATION SCH ×2 (07:54→19:44)
[2020-08-09] MEDS: BUDESONIDE 1 MG/2 ML NEBU INHALATION SCH ×2 (07:54→19:44)
[2020-08-09] MEDS: ACETYLCYSTEINE 800 MG/4 ML VIAL INHALATION SCH ×3 (07:55→19:44)
[2020-08-09] MEDS ORDERED: METOPROLOL TARTRATE 5 MG/5 ML VIAL IVP STA (08:15)
[2020-08-09] MEDS: AMIODARONE 300 MG in DEXTROSE 5% IN WATER 250 ML IV SCH ×4 (08:27→21:21)
[2020-08-09] MEDS: LEVOTHYROXINE IVP 100 MCG/5 ML VIAL IV SCH (08:29)
[2020-08-09] MEDS: PANTOPRAZOLE 40 MG/10 ML VIAL IVP SCH ×2 (08:29→21:23)
[2020-08-09] MEDS: HEPARIN SODIUM,PORCINE 5,000 UNIT/ML 1 ML VIAL SQ SCH ×2 (08:29→17:18)
[2020-08-09] MEDS: ANIDULAFUNGIN 100 MG in SODIUM CHLORIDE 0.9% 100 ML IVPB SCH (08:30)
[2020-08-09] MEDS: CHLORHEXIDINE GLUCONATE 15 ML CUP MUCOUS MEM SCH ×2 (08:30→21:21)
[2020-08-09] MEDS: ASPIRIN 81 MG PO SCH (08:30)
[2020-08-09] MEDS: 1: MVI, ADULT NO.4 WITH VIT K 10 ML, TRACE (CONC-1ML/DOSE) 1 ML, PARENTERAL ELECTROLYTES IV SCH ×6 (08:43)
[2020-08-09 09:24] LABS: Glucose,Whole Blood 93 mg/dL (75-99)
[2020-08-09 09:47] LABS: Glucose,Whole Blood 83 mg/dL (75-99)
[2020-08-09] MEDS ORDERED: FUROSEMIDE 10 MG/ML 4 ML VIAL IV ONE (10:00)
--- NOTE | 2020-08-09 10:26 | P.PN ---
Subjective Patient is seen in follow-up for acute kidney injury on chronic kidney disease. Renal function improving. Off Levophed. He is on amiodarone drip for A. fib with RVR. Extubated August 08. Currently on BiPAP. Receiving TPN. Nonoliguric. Vital signs are stable. HEENT: On BiPAP. LUNGS: Breath sounds decreased. HEART: Regular rate and rhythm. ABDOMEN: No gross distention noted. EXTREMITITES: 2+ edema. Objective - Vital Signs Vital signs: Vital Signs Temp 98.8 F 08/09/20 08:00 Pulse 78 08/09/20 09:00 Resp 23 08/09/20 09:00 BP 126/70 08/09/20 09:00 Pulse Ox 96 08/09/20 09:00 Intake & Output 08/08/20 08/09/20 08/09/20 18:59 06:59 18:59 Intake Total 2402.882 4769.386 1482.958 Output Total 1685 2425 230 Balance 717.882 -0419.544 9841.958 Weight 104.9 kg Intake: IV 1058 1134 276 Anidulafungin 200 mg In 100 Sodium Chloride 0.9% 200 ml @ 84 mls/hr IVPB ONCE ONE Rx#:[id number] DAPTOmycin 650 mg In 100 Sodium Chloride 0.9% 50 ml @ 100 mls/hr IVPB Q48H [facility] Rx#:[id number] Sodium Chloride 0.9% 1, 100 120 20 000 ml @ 20 mls/hr IV . Q24H [facility] Rx#:[id number] TPN 825 975 150 pressure bag 33 39 6 Intake, IV Titration 1344.882 63.200 1254.958 Amount Amiodarone 300 mg In 250 194.375 Dextrose 5% in Water 250 ml @ 0.25 MG/MIN 12.5 mls /hr IV .Q20H [facility] Rx#: [id number] Dexmedetomidine/0.9% NaCl 42.357 (Pmx) 400 mcg In Empty Bag 1 bag @ Titrate IV . Q0M [facility] Rx#:[id number] Insulin Regular 100 unit 96.275 63.200 26.833 In Sodium Chloride 0.9% 100 ml @ Per Protocol IV .Q0M [facility] Rx#:[id number] Sodium Acetate 50 meq 956.25 1033.75 Potassium Acetate 28 meq In Amino Acids 5 %/ Dextrose 20 % 1,000 ml @ 75 mls/hr IV .BY DURATION [facility] Rx#:[id number] Output: Gastric Drainage 150 450 Drainage 100 Abdomen 100 Urine 1535 1875 230 Other: Voiding Method Indwelling Catheter Indwelling Catheter # Bowel Movements 1 1 ABP, PAP, CO, CI - Last Documented Arterial Blood Pressure 145/55 Pulmonary Artery Pressure 33/14 Cardiac Output 6.7 Cardiac Index 3.1 - Labs CBC & Chem 7: 08/09/20 03:00 08/09/20 03:00 Labs: Abnormal Lab Results - Last 24 Hours (Table) 08/08/20 08/08/20 08/08/20 Range/Units 11:10 12:02 13:05 WBC (3.8-10.6) k/uL RBC (4.30-5.90) m/uL Hgb (13.0-17.5) gm/dL Hct (39.0-53.0) % MCHC (31.0-37.0) g/dL RDW (11.5-15.5) % Neutrophils # (1.3-7.7) k/uL Lymphocytes # (1.0-4.8) k/uL Chloride (98-107) mmol/L BUN (9-20) mg/dL Creatinine (0.66-1.25) mg/dL Glucose (74-99) mg/dL POC Glucose (mg/dL) 167 H 174 H 139 H (75-99) mg/dL Ionized Calcium Tamara (4.5-5.3) mg/dL ALT (4-49) U/L Total Protein (6.3-8.2) g/dL Albumin (3.5-5.0) g/dL 08/08/20 08/08/20 08/08/20 Range/Units 14:12 15:15 15:58 WBC (3.8-10.6) k/uL RBC (4.30-5.90) m/uL Hgb (13.0-17.5) gm/dL Hct (39.0-53.0) % MCHC (31.0-37.0) g/dL RDW (11.5-15.5) % Neutrophils # (1.3-7.7) k/uL Lymphocytes # (1.0-4.8) k/uL Chloride (98-107) mmol/L BUN (9-20) mg/dL Creatinine (0.66-1.25) mg/dL Glucose (74-99) mg/dL POC Glucose (mg/dL) 116 H 138 H 145 H (75-99) mg/dL Ionized Calcium Tamara (4.5-5.3) mg/dL ALT (4-49) U/L Total Protein (6.3-8.2) g/dL Albumin (3.5-5.0) g/dL 08/08/20 08/08/20 08/08/20 Range/Units 17:25 18:27 19:12 WBC (3.8-10.6) k/uL RBC (4.30-5.90) m/uL Hgb (13.0-17.5) gm/dL Hct (39.0-53.0) % MCHC (31.0-37.0) g/dL RDW (11.5-15.5) % Neutrophils # (1.3-7.7) k/uL Lymphocytes # (1.0-4.8) k/uL Chloride (98-107) mmol/L BUN (9-20) mg/dL Creatinine (0.66-1.25) mg/dL Glucose (74-99) mg/dL POC Glucose (mg/dL) 137 H 124 H 107 H (75-99) mg/dL Ionized Calcium Tamara (4.5-5.3) mg/dL ALT (4-49) U/L Total Protein (6.3-8.2) g/dL Albumin (3.5-5.0) g/dL 08/08/20 08/08/20 08/08/20 Range/Units 21:03 22:46 23:49 WBC (3.8-10.6) k/uL RBC (4.30-5.90) m/uL Hgb (13.0-17.5) gm/dL Hct (39.0-53.0) % MCHC (31.0-37.0) g/dL RDW (11.5-15.5) % Neutrophils # (1.3-7.7) k/uL Lymphocytes # (1.0-4.8) k/uL Chloride (98-107) mmol/L BUN (9-20) mg/dL Creatinine (0.66-1.25) mg/dL Glucose (74-99) mg/dL POC Glucose (mg/dL) 156 H 183 H 155 H (75-99) mg/dL Ionized Calcium Tamara (4.5-5.3) mg/dL ALT (4-49) U/L Total Protein (6.3-8.2) g/dL Albumin (3.5-5.0) g/dL 08/09/20 08/09/20 08/09/20 Range/Units 01:07 03:00 03:00 WBC 13.6 H (3.8-10.6) k/uL RBC 2.82 L (4.30-5.90) m/uL Hgb 8.6 L (13.0-17.5) gm/dL Hct 28.0 L (39.0-53.0) % MCHC 30.8 L (31.0-37.0) g/dL RDW 18.1 H (11.5-15.5) % Neutrophils # 12.2 H (1.3-7.7) k/uL Lymphocytes # 0.4 L (1.0-4.8) k/uL Chloride 115 H (98-107) mmol/L BUN 62 H (9-20) mg/dL Creatinine 1.54 H (0.66-1.25) mg/dL Glucose 122 H (74-99) mg/dL POC Glucose (mg/dL) 134 H (75-99) mg/dL Ionized Calcium Tamara 5.7 H (4.5-5.3) mg/dL ALT 96 H (4-49) U/L Total Protein 4.9 L (6.3-8.2) g/dL Albumin 2.2 L (3.5-5.0) g/dL 08/09/20 08/09/20 08/09/20 Range/Units 03:05 04:48 05:57 WBC (3.8-10.6) k/uL RBC (4.30-5.90) m/uL Hgb (13.0-17.5) gm/dL Hct (39.0-53.0) % MCHC (31.0-37.0) g/dL RDW (11.5-15.5) % Neutrophils # (1.3-7.7) k/uL Lymphocytes # (1.0-4.8) k/uL Chloride (98-107) mmol/L BUN (9-20) mg/dL Creatinine (0.66-1.25) mg/dL Glucose (74-99) mg/dL POC Glucose (mg/dL) 114 H 152 H 189 H (75-99) mg/dL Ionized Calcium Tamara (4.5-5.3) mg/dL ALT (4-49) U/L Total Protein (6.3-8.2) g/dL Albumin (3.5-5.0) g/dL 08/09/20 08/09/20 Range/Units 06:58 07:47 WBC (3.8-10.6) k/uL RBC (4.30-5.90) m/uL Hgb (13.0-17.5) gm/dL Hct (39.0-53.0) % MCHC (31.0-37.0) g/dL RDW (11.5-15.5) % Neutrophils # (1.3-7.7) k/uL Lymphocytes # (1.0-4.8) k/uL Chloride (98-107) mmol/L BUN (9-20) mg/dL Creatinine (0.66-1.25) mg/dL Glucose (74-99) mg/dL POC Glucose (mg/dL) 144 H 139 H (75-99) mg/dL Ionized Calcium Tamara (4.5-5.3) mg/dL ALT (4-49) U/L Total Protein (6.3-8.2) g/dL Albumin (3.5-5.0) g/dL Microbiology - Last 24 Hours (Table) 08/02/20 21:48 Blood Culture - Final Blood No Growth after 144 hours 08/02/20 19:25 Blood Culture - Final Blood No Growth after 144 hours 08/03/20 12:20 Catheter Tip Culture - Final Catheter Tip Staphylococcus epidermidis Assessment and Plan Plan: Assessment: 1. Acute kidney injury secondary to hemodynamic ATN. No hydronephrosis noted on computed tomography scan. No proteinuria on UA. Nonoliguric. Renal function improving. Creatinine 1.54 today. 2. Chronic kidney disease stage III with baseline creatinine in the range of 1.2-1.5 secondary to nephrosclerosis. UA from June 2020 was benign. 3. Coronary artery disease status post 2 vessel CABG on July 18. 4. Hypervolemic hyponatremia. Improved with diuresis. 5. Bowel ischemia status post exploratory laparotomy and resection. Underwent another exploratory laparotomy on August 02 with ileostomy. 6. Diabetes mellitus. 7. Volume overload. Improved with diuresis. 8. Hypokalemia secondary to diuresis. Status post placement. 9. A. fib maintained on amiodarone drip. 10. Anemia of chronic kidney disease and post-cabg. Status post blood transfusion this admission. Hemoglobin stable. Plan: Maintain TPN per surgical recommendations. Avoid nephrotoxins. Continue to monitor renal function and urine output. Wean FiO2 and vasopressors. Lasix 40 mg IV once today.
[2020-08-09 10:42] LABS: Glucose,Whole Blood 157 mg/dL (75-99)
[2020-08-09] MEDS ORDERED: FUROSEMIDE 10 MG/ML 4 ML VIAL IV STA (10:43)
--- NOTE | 2020-08-09 10:45 | PN ---
PROGRESS NOTE Francisco is a 80-year-old gentleman with history of CAD, status post CABG, who has had prolonged and complex hospitalization and recovery including small bowel surgery after his bypass surgery. He is still requiring quite a bit of respiratory support, appears confused at rest but is hemodynamically stable this morning. He remains in sinus rhythm. Heart rate is 78 beats per minute. Blood pressure is 146/70, respiratory rate is 18. Chest exam reveals diminished air entry bilaterally. Heart exam reveals first and second heart sounds. No gallop. Exam of extremities did not reveal any edema. Peripheral pulses are felt. MEDICATIONS: He is currently on aspirin, Lasix as needed, IV Lopressor, ASSESSMENT: 1. Coronary artery disease,status post coronary artery bypass grafting. 2. Status post complex complications. Continue current measures. Prognosis guarded. MMODL / IJN: [id number] /
--- NOTE | 2020-08-09 10:48 | P.PN ---
Subjective Progress Note Date: 08/09/20 Principal diagnosis: Coronary artery disease, status post three-vessel bypass grafting 79-year-old white male patient with past medical history of hypertension, hyperlipidemia, moderate to severe COPD with the baseline FEV1 of 56% of predicted who came in on 07/18/2020 for elective two-vessel bypass grafting with PABLO to LAD, and SVG to the PDA. He was seen in the intensive care unit following surgery, patient was successfully weaned and extubated from mechanical ventilator and under 6 hours following his OR exit, is currently awake and alert, sitting in the chair, he is currently on 2 L of oxygen, his pulse ox is 98%, hemodynamically he stable, blood pressure is 106/51, PA pressures 35/11, CVP is 8, no fever or chills, IV fluids including the 0.9 normal saline at a r ate of 30 ML per hour, insulin is 4.5 units per hour, no vasoactive drips. Today's chest x-ray shows a pneumoperitoneum with lucency present underneath the right hemidiaphragm. He has left pleural and mediastinal chest tube, and there has been 500 mL of serosanguineous output from the left pleural and 350 mL from the mediastinal chest tube in the last 24 hours. Is having some mild discomfort under the right rib cage, but no acute distress, abdomen is distended but soft, he is hemodynamically stable, he is in sinus mechanism, no nausea vomiting or diarrhea. CT of the abdomen and pelvis is pending today's labs have been reviewed, showing white blood cell count of 11.9, hemoglobin of 9, sodium is 133, the rest of the electrolytes were within normal limits, B1 is 25 creatinine is 1.18 The patient is seen today 07/20/2020 in follow-up in the intensive care unit. He is currently sitting up in a chair at the bedside. Awake and alert in no acute distress. This is postoperative day #2, two-vessel coronary artery bypass surgery. He is currently on 2 L/m per nasal cannula maintaining good O2 saturation in the 90s. He did have issues with atrial fibrillation and is currently on Cardizem drip at 10 mg per hour. He did receive IV amiodarone, initiated on by mouth today. 0.9 normal saline at KVO. Chest x-ray reveals removal of mediastinal drains. Right-sided pneumoperitoneum is no longer appreciated. Left-sided chest tube remains in place. Bibasilar patchy atelectasis remains. White count 18.2. Hemoglobin 8.9. Platelet count 99,000. Sodium 127. Potassium 5.0. Creatinine 1.37. He is pulling approximately 1883-2989 ML's on the incentive spirometer. Continued on bronchodilators. Heparin for DVT prophylaxis. Patient is seen today 07/22/2020 in follow-up on the intensive care unit. He is currently sitting up in a chair at the bedside. He is having complaints of increasing shortness of breath. He is doing less on his incentive spirometer. Chest x-ray reveals small right pleural effusion with adjacent atelectasis and/or consolidation. He is currently maintaining O2 saturations in the low 90s on 3 L/m per nasal cannula. Respiratory rate 32. He is afebrile. Blood pressure stable. He did have issues with atrial fibrillation with rapid ventricular response last evening. He is on a Cardizem drip at 10 mg per hour. He will be transitioned to Eliquis. On oral amiodarone. 0.9 normal saline at 20 ML's per hour. Currently in sinus rhythm. White count 16.8. Hemoglobin 8.8. Sodium 124. Potassium 5.3. Bicarb 20. Creatinine 1.62. AST 147. ALT 130. He is still having issues with hypoactive bowel and not passing flatus or bowel movement since surgery. He remains on bronchodilators and IV Solu-Medrol. The patient is seen today 07/23/2020 in follow-up in the intensive care unit. Postoperative day #5. He is awake and alert in no acute distress. Currently sitting up in a chair at the bedside. He is feeling stronger today. Less short of breath. Maintaining O2 saturations in the 90s on 3 L/m per nasal cannula. Chest x-ray continues to show a small right pleural effusion with prominent right greater than left basilar atelectasis. He is doing better with his incentive spirometer. White count 15.2. Hemoglobin 81.1. Sodium 124. Potassium 5.3. Creatinine 1.84. AST 136. ALT 193. Albumin 3.4. No IV fluids currently. Is continued on bronchodilators, IV Solu-Medrol, anticoagulated with Eliquis. Still has not had a bowel movement. The patient is seen today 08/09/2020 in follow-up in the intensive care unit. He was extubated again yesterday 08/08/2020. He is currently on 2 L/m per nasal cannula. TPN at 75 ML's per hour. 0.9#10 ML's per hour. Amiodarone at 0.25 mg/m. Insulin drip at 7 units per hour. His x-ray reveals some evidence of fluid volume overload. He is also quite edematous. He'll receive Lasix 40 mg IVP 1 today. He'll also be placed on BiPAP 07/22 on 40% FiO2 as he remains slightly tachypneic and shallow breathing. He is quite weak and debilitated today. He remains on bronchodilators. Eraxis. Daptomycin. Being nourished with lipid and TPN. Objective - Vital Signs Vital signs: Vital Signs Temp 98.8 F 08/09/20 08:00 Pulse 78 08/09/20 09:00 Resp 23 08/09/20 09:00 BP 126/70 08/09/20 09:00 Pulse Ox 96 08/09/20 09:00 Intake & Output 08/08/20 08/09/20 08/09/20 18:59 06:59 18:59 Intake Total 2402.882 6499.330 4064.958 Output Total 1685 2425 230 Balance 717.882 -6092.478 8079.958 Weight 104.9 kg Intake: IV 1058 1134 276 Anidulafungin 200 mg In 100 Sodium Chloride 0.9% 200 ml @ 84 mls/hr IVPB ONCE ONE Rx#:[id number] DAPTOmycin 650 mg In 100 Sodium Chloride 0.9% 50 ml @ 100 mls/hr IVPB Q48H [facility] Rx#:[id number] Sodium Chloride 0.9% 1, 100 120 20 000 ml @ 20 mls/hr IV . Q24H [facility] Rx#:[id number] TPN 825 975 150 pressure bag 33 39 6 Intake, IV Titration 1344.882 63.200 1254.958 Amount Amiodarone 300 mg In 250 194.375 Dextrose 5% in Water 250 ml @ 0.25 MG/MIN 12.5 mls /hr IV .Q20H [facility] Rx#: [id number] Dexmedetomidine/0.9% NaCl 42.357 (Pmx) 400 mcg In Empty Bag 1 bag @ Titrate IV . Q0M [facility] Rx#:[id number] Insulin Regular 100 unit 96.275 63.200 26.833 In Sodium Chloride 0.9% 100 ml @ Per Protocol IV .Q0M [facility] Rx#:[id number] Sodium Acetate 50 meq 956.25 1033.75 Potassium Acetate 28 meq In Amino Acids 5 %/ Dextrose 20 % 1,000 ml @ 75 mls/hr IV .BY DURATION [facility] Rx#:[id number] Output: Gastric Drainage 150 450 Drainage 100 Abdomen 100 Urine 1535 1875 230 Other: Voiding Method Indwelling Catheter Indwelling Catheter # Bowel Movements 1 1 ABP, PAP, CO, CI - Last Documented Arterial Blood Pressure 145/55 Pulmonary Artery Pressure 33/14 Cardiac Output 6.7 Cardiac Index 3.1 - Exam GENERAL EXAM: Alert, very pleasant, 79-year-old male patient, on 2 L of oxygen, in the ICU, fairly comfortable in no apparent distress. HEAD: Normocephalic/atraumatic. EYES: Normal reaction of pupils, equal size. Conjunctiva pink, sclera white. NOSE: Clear with pink turbinates. THROAT: No erythema or exudates. NECK: No masses, no JVD, no thyroid enlargement, no adenopathy. CHEST: No chest wall deformity. Symmetrical expansion. Midsternal incision is clean dry and intact LUNGS: Equal air entry with scattered crackles in the bases. CVS: Regular rate and rhythm, normal S1 and S2, no gallops, no murmurs, no rubs ABDOMEN: Incision clean dry well approximated. Wound VAC in place. Ileostomy the right side of the abdomen EXTREMITIES: No clubbing, no edema, no cyanosis, 2+ pulses and upper and lower extremities. MUSCULOSKELETAL: Muscle strength and tone normal. SPINE: No scoliosis or deformity SKIN: No rashes CENTRAL NERVOUS SYSTEM: No focal deficits, tone is normal in all 4 extremities. PSYCHIATRIC: Alert and oriented -3. Appropriate affect. Intact judgment and insight. - Labs CBC & Chem 7: 08/09/20 03:00 08/09/20 03:00 Labs: Abnormal Lab Results - Last 24 Hours (Table) 08/08/20 08/08/20 08/08/20 Range/Units 11:10 12:02 13:05 WBC (3.8-10.6) k/uL RBC (4.30-5.90) m/uL Hgb (13.0-17.5) gm/dL Hct (39.0-53.0) % MCHC (31.0-37.0) g/dL RDW (11.5-15.5) % Neutrophils # (1.3-7.7) k/uL Lymphocytes # (1.0-4.8) k/uL Chloride (98-107) mmol/L BUN (9-20) mg/dL Creatinine (0.66-1.25) mg/dL Glucose (74-99) mg/dL POC Glucose (mg/dL) 167 H 174 H 139 H (75-99) mg/dL Ionized Calcium Tamara (4.5-5.3) mg/dL ALT (4-49) U/L Total Protein (6.3-8.2) g/dL Albumin (3.5-5.0) g/dL 08/08/20 08/08/20 08/08/20 Range/Units 14:12 15:15 15:58 WBC (3.8-10.6) k/uL RBC (4.30-5.90) m/uL Hgb (13.0-17.5) gm/dL Hct (39.0-53.0) % MCHC (31.0-37.0) g/dL RDW (11.5-15.5) % Neutrophils # (1.3-7.7) k/uL Lymphocytes # (1.0-4.8) k/uL Chloride (98-107) mmol/L BUN (9-20) mg/dL Creatinine (0.66-1.25) mg/dL Glucose (74-99) mg/dL POC Glucose (mg/dL) 116 H 138 H 145 H (75-99) mg/dL Ionized Calcium Tamara (4.5-5.3) mg/dL ALT (4-49) U/L Total Protein (6.3-8.2) g/dL Albumin (3.5-5.0) g/dL 08/08/20 08/08/20 08/08/20 Range/Units 17:25 18:27 19:12 WBC (3.8-10.6) k/uL RBC (4.30-5.90) m/uL Hgb (13.0-17.5) gm/dL Hct (39.0-53.0) % MCHC (31.0-37.0) g/dL RDW (11.5-15.5) % Neutrophils # (1.3-7.7) k/uL Lymphocytes # (1.0-4.8) k/uL Chloride (98-107) mmol/L BUN (9-20) mg/dL Creatinine (0.66-1.25) mg/dL Glucose (74-99) mg/dL POC Glucose (mg/dL) 137 H 124 H 107 H (75-99) mg/dL Ionized Calcium Tamara (4.5-5.3) mg/dL ALT (4-49) U/L Total Protein (6.3-8.2) g/dL Albumin (3.5-5.0) g/dL 08/08/20 08/08/20 08/08/20 Range/Units 21:03 22:46 23:49 WBC (3.8-10.6) k/uL RBC (4.30-5.90) m/uL Hgb (13.0-17.5) gm/dL Hct (39.0-53.0) % MCHC (31.0-37.0) g/dL RDW (11.5-15.5) % Neutrophils # (1.3-7.7) k/uL Lymphocytes # (1.0-4.8) k/uL Chloride (98-107) mmol/L BUN (9-20) mg/dL Creatinine (0.66-1.25) mg/dL Glucose (74-99) mg/dL POC Glucose (mg/dL) 156 H 183 H 155 H (75-99) mg/dL Ionized Calcium Tamara (4.5-5.3) mg/dL ALT (4-49) U/L Total Protein (6.3-8.2) g/dL Albumin (3.5-5.0) g/dL 08/09/20 08/09/20 08/09/20 Range/Units 01:07 03:00 03:00 WBC 13.6 H (3.8-10.6) k/uL RBC 2.82 L (4.30-5.90) m/uL Hgb 8.6 L (13.0-17.5) gm/dL Hct 28.0 L (39.0-53.0) % MCHC 30.8 L (31.0-37.0) g/dL RDW 18.1 H (11.5-15.5) % Neutrophils # 12.2 H (1.3-7.7) k/uL Lymphocytes # 0.4 L (1.0-4.8) k/uL Chloride 115 H (98-107) mmol/L BUN 62 H (9-20) mg/dL Creatinine 1.54 H (0.66-1.25) mg/dL Glucose 122 H (74-99) mg/dL POC Glucose (mg/dL) 134 H (75-99) mg/dL Ionized Calcium Tamara 5.7 H (4.5-5.3) mg/dL ALT 96 H (4-49) U/L Total Protein 4.9 L (6.3-8.2) g/dL Albumin 2.2 L (3.5-5.0) g/dL 08/09/20 08/09/20 08/09/20 Range/Units 03:05 04:48 05:57 WBC (3.8-10.6) k/uL RBC (4.30-5.90) m/uL Hgb (13.0-17.5) gm/dL Hct (39.0-53.0) % MCHC (31.0-37.0) g/dL RDW (11.5-15.5) % Neutrophils # (1.3-7.7) k/uL Lymphocytes # (1.0-4.8) k/uL Chloride (98-107) mmol/L BUN (9-20) mg/dL Creatinine (0.66-1.25) mg/dL Glucose (74-99) mg/dL POC Glucose (mg/dL) 114 H 152 H 189 H (75-99) mg/dL Ionized Calcium Tamara (4.5-5.3) mg/dL ALT (4-49) U/L Total Protein (6.3-8.2) g/dL Albumin (3.5-5.0) g/dL 08/09/20 08/09/20 08/09/20 Range/Units 06:58 07:47 10:40 WBC (3.8-10.6) k/uL RBC (4.30-5.90) m/uL Hgb (13.0-17.5) gm/dL Hct (39.0-53.0) % MCHC (31.0-37.0) g/dL RDW (11.5-15.5) % Neutrophils # (1.3-7.7) k/uL Lymphocytes # (1.0-4.8) k/uL Chloride (98-107) mmol/L BUN (9-20) mg/dL Creatinine (0.66-1.25) mg/dL Glucose (74-99) mg/dL POC Glucose (mg/dL) 144 H 139 H 157 H (75-99) mg/dL Ionized Calcium Tamara (4.5-5.3) mg/dL ALT (4-49) U/L Total Protein (6.3-8.2) g/dL Albumin (3.5-5.0) g/dL Microbiology - Last 24 Hours (Table) 08/02/20 21:48 Blood Culture - Final Blood No Growth after 144 hours 08/02/20 19:25 Blood Culture - Final Blood No Growth after 144 hours 08/03/20 12:20 Catheter Tip Culture - Final Catheter Tip Staphylococcus epidermidis Assessment and Plan Assessment: 1 Symptomatic coronary artery disease, status post two-vessel coronary artery bypass grafting with PABLO to the LAD, SVG to the PDA 2 Postoperative atrial fibrillation with rapid ventricular response requiring amiodarone and Cardizem, initiated on Eliquis 3 History of coronary artery disease with previous stent placement 4 Intraperitoneal hemorrhage status post exploratory laparotomy, washout. She'll cavity and ileostomy on 08/02/2020. 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 Meyers Chest x-ray and labs reviewed Lasix [address] patient on BiPAP 12/5 on 40% FiO2 Continue bronchodilators IS, and IV Solu-Medrol Receiving stool softeners and laxatives We will continue to follow and make further recommendations based on his clinical status I, the cosigning physician, performed a history & physical examination of the patient. Lungs sounds with basilar crackles. Maintaining good O2 saturations in the 90s on 2 L/m per nasal cannula. I discussed the assessment and plan of care with my nurse practitioner, Olga Marin. I attest to the above note as dictated by her.
--- NOTE | 2020-08-09 10:57 | P.PN ---
Subjective Progress Note Date: 08/09/20 No new complaints today. On BiPAP for dyspnea. UOP is good. Minimal to no output from ileostomy bag. Objective - Vital Signs Vital signs: Vital Signs Temp 98.8 F 08/09/20 08:00 Pulse 78 08/09/20 10:00 Resp 19 08/09/20 10:00 BP 104/47 08/09/20 10:00 Pulse Ox 98 08/09/20 10:00 Intake & Output 08/08/20 08/09/20 08/09/20 18:59 06:59 18:59 Intake Total 2402.882 4761.824 2507.958 Output Total 1685 2425 480 Balance 717.882 -1666.625 0142.958 Weight 104.9 kg Intake: IV 1058 1134 452 Anidulafungin 200 mg In 100 Sodium Chloride 0.9% 200 ml @ 84 mls/hr IVPB ONCE ONE Rx#:[id number] DAPTOmycin 650 mg In 100 Sodium Chloride 0.9% 50 ml @ 100 mls/hr IVPB Q48H [facility] Rx#:[id number] Sodium Chloride 0.9% 1, 100 120 40 000 ml @ 20 mls/hr IV . Q24H [facility] Rx#:[id number] TPN 825 975 300 pressure bag 33 39 12 Intake, IV Titration 1344.882 63.200 1254.958 Amount Amiodarone 300 mg In 250 194.375 Dextrose 5% in Water 250 ml @ 0.25 MG/MIN 12.5 mls /hr IV .Q20H [facility] Rx#: [id number] Dexmedetomidine/0.9% NaCl 42.357 (Pmx) 400 mcg In Empty Bag 1 bag @ Titrate IV . Q0M [facility] Rx#:[id number] Insulin Regular 100 unit 96.275 63.200 26.833 In Sodium Chloride 0.9% 100 ml @ Per Protocol IV .Q0M [facility] Rx#:[id number] Sodium Acetate 50 meq 956.25 1033.75 Potassium Acetate 28 meq In Amino Acids 5 %/ Dextrose 20 % 1,000 ml @ 75 mls/hr IV .BY DURATION [facility] Rx#:[id number] Output: Gastric Drainage 150 450 Drainage 100 Abdomen 100 Urine 1535 1875 480 Other: Voiding Method Indwelling Catheter Indwelling Catheter # Bowel Movements 1 1 ABP, PAP, CO, CI - Last Documented Arterial Blood Pressure 110/65 Pulmonary Artery Pressure 33/14 Cardiac Output 6.7 Cardiac Index 3.1 - Exam Gen: awake, alert HEENT: normocephalic, atraumatic, moist mucous membranes, + central line Resp: CPAP, adequate lung expansion, symmetic breathing, no accessory muscle use CVS: good distal perfusion x 4, RRR, no murmurs, clicks, gallops GI: soft, NTTP, ND : no SPT, no CVAT, malagon catheter is present MSK: + pitting edema, no clubbing Neuro: non-focal, no sensory deficits, appropriate tone - Labs CBC & Chem 7: 08/09/20 03:00 08/09/20 03:00 Labs: Abnormal Lab Results - Last 24 Hours (Table) 08/08/20 08/08/20 08/08/20 Range/Units 11:10 12:02 13:05 WBC (3.8-10.6) k/uL RBC (4.30-5.90) m/uL Hgb (13.0-17.5) gm/dL Hct (39.0-53.0) % MCHC (31.0-37.0) g/dL RDW (11.5-15.5) % Neutrophils # (1.3-7.7) k/uL Lymphocytes # (1.0-4.8) k/uL Chloride (98-107) mmol/L BUN (9-20) mg/dL Creatinine (0.66-1.25) mg/dL Glucose (74-99) mg/dL POC Glucose (mg/dL) 167 H 174 H 139 H (75-99) mg/dL Ionized Calcium Tamara (4.5-5.3) mg/dL ALT (4-49) U/L Total Protein (6.3-8.2) g/dL Albumin (3.5-5.0) g/dL 08/08/20 08/08/20 08/08/20 Range/Units 14:12 15:15 15:58 WBC (3.8-10.6) k/uL RBC (4.30-5.90) m/uL Hgb (13.0-17.5) gm/dL Hct (39.0-53.0) % MCHC (31.0-37.0) g/dL RDW (11.5-15.5) % Neutrophils # (1.3-7.7) k/uL Lymphocytes # (1.0-4.8) k/uL Chloride (98-107) mmol/L BUN (9-20) mg/dL Creatinine (0.66-1.25) mg/dL Glucose (74-99) mg/dL POC Glucose (mg/dL) 116 H 138 H 145 H (75-99) mg/dL Ionized Calcium Tamara (4.5-5.3) mg/dL ALT (4-49) U/L Total Protein (6.3-8.2) g/dL Albumin (3.5-5.0) g/dL 08/08/20 08/08/20 08/08/20 Range/Units 17:25 18:27 19:12 WBC (3.8-10.6) k/uL RBC (4.30-5.90) m/uL Hgb (13.0-17.5) gm/dL Hct (39.0-53.0) % MCHC (31.0-37.0) g/dL RDW (11.5-15.5) % Neutrophils # (1.3-7.7) k/uL Lymphocytes # (1.0-4.8) k/uL Chloride (98-107) mmol/L BUN (9-20) mg/dL Creatinine (0.66-1.25) mg/dL Glucose (74-99) mg/dL POC Glucose (mg/dL) 137 H 124 H 107 H (75-99) mg/dL Ionized Calcium Tamara (4.5-5.3) mg/dL ALT (4-49) U/L Total Protein (6.3-8.2) g/dL Albumin (3.5-5.0) g/dL 08/08/20 08/08/20 08/08/20 Range/Units 21:03 22:46 23:49 WBC (3.8-10.6) k/uL RBC (4.30-5.90) m/uL Hgb (13.0-17.5) gm/dL Hct (39.0-53.0) % MCHC (31.0-37.0) g/dL RDW (11.5-15.5) % Neutrophils # (1.3-7.7) k/uL Lymphocytes # (1.0-4.8) k/uL Chloride (98-107) mmol/L BUN (9-20) mg/dL Creatinine (0.66-1.25) mg/dL Glucose (74-99) mg/dL POC Glucose (mg/dL) 156 H 183 H 155 H (75-99) mg/dL Ionized Calcium Tamara (4.5-5.3) mg/dL ALT (4-49) U/L Total Protein (6.3-8.2) g/dL Albumin (3.5-5.0) g/dL 08/09/20 08/09/20 08/09/20 Range/Units 01:07 03:00 03:00 WBC 13.6 H (3.8-10.6) k/uL RBC 2.82 L (4.30-5.90) m/uL Hgb 8.6 L (13.0-17.5) gm/dL Hct 28.0 L (39.0-53.0) % MCHC 30.8 L (31.0-37.0) g/dL RDW 18.1 H (11.5-15.5) % Neutrophils # 12.2 H (1.3-7.7) k/uL Lymphocytes # 0.4 L (1.0-4.8) k/uL Chloride 115 H (98-107) mmol/L BUN 62 H (9-20) mg/dL Creatinine 1.54 H (0.66-1.25) mg/dL Glucose 122 H (74-99) mg/dL POC Glucose (mg/dL) 134 H (75-99) mg/dL Ionized Calcium Tamara 5.7 H (4.5-5.3) mg/dL ALT 96 H (4-49) U/L Total Protein 4.9 L (6.3-8.2) g/dL Albumin 2.2 L (3.5-5.0) g/dL 08/09/20 08/09/20 08/09/20 Range/Units 03:05 04:48 05:57 WBC (3.8-10.6) k/uL RBC (4.30-5.90) m/uL Hgb (13.0-17.5) gm/dL Hct (39.0-53.0) % MCHC (31.0-37.0) g/dL RDW (11.5-15.5) % Neutrophils # (1.3-7.7) k/uL Lymphocytes # (1.0-4.8) k/uL Chloride (98-107) mmol/L BUN (9-20) mg/dL Creatinine (0.66-1.25) mg/dL Glucose (74-99) mg/dL POC Glucose (mg/dL) 114 H 152 H 189 H (75-99) mg/dL Ionized Calcium Tamara (4.5-5.3) mg/dL ALT (4-49) U/L Total Protein (6.3-8.2) g/dL Albumin (3.5-5.0) g/dL 08/09/20 08/09/20 08/09/20 Range/Units 06:58 07:47 10:40 WBC (3.8-10.6) k/uL RBC (4.30-5.90) m/uL Hgb (13.0-17.5) gm/dL Hct (39.0-53.0) % MCHC (31.0-37.0) g/dL RDW (11.5-15.5) % Neutrophils # (1.3-7.7) k/uL Lymphocytes # (1.0-4.8) k/uL Chloride (98-107) mmol/L BUN (9-20) mg/dL Creatinine (0.66-1.25) mg/dL Glucose (74-99) mg/dL POC Glucose (mg/dL) 144 H 139 H 157 H (75-99) mg/dL Ionized Calcium Tamara (4.5-5.3) mg/dL ALT (4-49) U/L Total Protein (6.3-8.2) g/dL Albumin (3.5-5.0) g/dL Microbiology - Last 24 Hours (Table) 08/02/20 21:48 Blood Culture - Final Blood No Growth after 144 hours 08/02/20 19:25 Blood Culture - Final Blood No Growth after 144 hours 08/03/20 12:20 Catheter Tip Culture - Final Catheter Tip Staphylococcus epidermidis Assessment and Plan Assessment: 1. CAD s/p CABG with 2v bypass, PABLO to LAD, and SVG to posterior decending coronary artery 2. Paroxysmal Atrial Fibrillation, with RVR 3. 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 Pneumatosis, Ischemic Bowel, s/p small bowel resection 5. Acute Blood Loss Anemia, post-operative, resolved 6. Pneumoperitoneum secondary to chest tubes, resolving 7. CONNOR superimposed on CKD, stage III, worsening 8. Hypertension, essential 9. Hyperlipidemia 10. Type II DM, uncontrolled 11. Hypothyroidism 12. Obesity, BMI 30.5 13. Hyponatremia and Hyperkalemia 80 year old man with history of COPD, CKD III, HTN/HLD/CAD/DM, Obesity presented for symptomatic CAD and underwent 2v CABG with post-operative course complicated by respiratory failure secondary to COPD exacerbation, blood loss anemia, paroxysmal atrial fibrillation with RVR, and metabolic derangements. DM 2 - hold metformin - Inulin subcutaneous with sliding scale insulin coverage, check blood sugars every before meals and at bedtime, Levemir added on 12. - Blood sugars currently controlled, follow blood sugars closely - A1C from 06/21/2020 5.2, anticipate discharge home back on metformin which may be able to come off in the near future in the outpatient setting. Small Bowel Ischemia - surgery consult - POD #15 s/p resection/anastamosis, POD #5 anastamosis take down and diverting ileostomy - on daptomycin/meropenem/eraxis - MRSA nares negative A-fib with RVR On metoprolol 2.5 IV q6h Off cardizem gtt Eliquis held due to bleeding, now on heparin q8h for DVT PPx CONNOR on CKD stage III Baseline cr 1.4-1.5 Likely cardiorenal syndrome, patient received contrast earlier in the admission. Try to avoid IV fluids Recheck in am Avoid nephrotoxic meds Nephrology is following Acute hyponatremia Likely sec to renal failure Monitor Nephrology consulted, checking urine and plasma osmolalities as well as urine sodium. Hyperkalemia Kayexalate 15 g, follow K in a.m. Pneumoperitoneum suspect secondary to mediastinal chest tubes -Tube d/melody -Resolved. Constipation On Senokot, MiraLAX Had a bowel movement today Acute blood loss anemia and thrombocytopenia, anticipated outcome of surgery - follow CBC - transfuse as indicated COPD with acute exacerbation - On steroids, we'll wean down today from 60 to 40 mg every 6 hours. - DuoNebs - on spiriva and advair at home Coronary artery disease -Status post coronary artery bypass grafting -Cardiothoracic and cardiology following HTN - meds per CT surgery - follow BP Hypothyroidism status post partial thyroidectomy - synthroid Morbid obesity with BMI 30.5 -Outpatient structured weight loss Chronic: ADDY Jacobs's Thank you for allowing us to participate in the care of this pleasant patient. Do not hesitate to contact us with questions. Someone can be reached from the [facility] hospitalist group all hours of the day at [phone] or via Consumer Agent Portal (CAP).
--- NOTE | 2020-08-09 11:19 | P.PN ---
Subjective Progress Note Date: 08/09/20 CHIEF COMPLAINT: Status post CABG 2 vessels HISTORY OF PRESENT ILLNESS: Patient remains in the ICU. He was extubated yesterday and is currently on BiPAP. He is on TPN for nutrition support. He is on IV amiodarone for his A. fib. Patient passed bowel movement per rectum with no visible blood x2 yesterday. Ileostomy still has no gas or stool present. Afebrile. WBC 13.6 Hgb 7.6 PHYSICAL EXAM: VITAL SIGNS: Reviewed. GENERAL: Well-developed in no acute distress. HEENT: No sclera icterus. Extraocular movements grossly intact. Moist buccal mucosa. Head is atraumatic, normocephalic. ABDOMEN: Soft. Abdominal incision with wound VAC in place. Ileostomy right side of abdomen minimal blood-tinged drainage NEUROLOGIC: Intubated and sedated ASSESSMENT: 1. Intraperitoneal hemorrhage status post exploratory laparotomy, washout of peritoneal cavity and ileostomy on 08/02/2020 2. Ischemic small bowel with evidence of pneumatosis status post small bowel resection on 07/24/2020 3. Acute hypoxic respiratory failure requiring mechanical ventilation 4. symptomatic triple-vessel coronary artery disease status post 2 vessel coronary bypass grafting surgery 5. Diabetes mellitus type 2 PLAN: -Continue wound VAC -Continue antibiotics -Continue supportive care -DVT prophylaxis subcu Heparin and GI prophylaxis Protonix Physician District Manager Primary Care Sales note has been reviewed by physician. Signing provider agrees with the documented findings, assessment, and plan of care. Objective - Vital Signs Vital signs: Vital Signs Temp 98.8 F 08/09/20 08:00 Pulse 78 08/09/20 10:00 Resp 19 08/09/20 10:00 BP 104/47 08/09/20 10:00 Pulse Ox 98 08/09/20 10:00 Intake & Output 08/08/20 08/09/20 08/09/20 18:59 06:59 18:59 Intake Total 2402.882 9831.961 8843.958 Output Total 1685 2425 480 Balance 717.882 -5500.422 7541.958 Weight 104.9 kg Intake: IV 1058 1134 452 Anidulafungin 200 mg In 100 Sodium Chloride 0.9% 200 ml @ 84 mls/hr IVPB ONCE ONE Rx#:[id number] DAPTOmycin 650 mg In 100 Sodium Chloride 0.9% 50 ml @ 100 mls/hr IVPB Q48H [facility] Rx#:[id number] Sodium Chloride 0.9% 1, 100 120 40 000 ml @ 20 mls/hr IV . Q24H [facility] Rx#:[id number] TPN 825 975 300 pressure bag 33 39 12 Intake, IV Titration 1344.882 63.200 1254.958 Amount Amiodarone 300 mg In 250 194.375 Dextrose 5% in Water 250 ml @ 0.25 MG/MIN 12.5 mls /hr IV .Q20H [facility] Rx#: [id number] Dexmedetomidine/0.9% NaCl 42.357 (Pmx) 400 mcg In Empty Bag 1 bag @ Titrate IV . Q0M [facility] Rx#:[id number] Insulin Regular 100 unit 96.275 63.200 26.833 In Sodium Chloride 0.9% 100 ml @ Per Protocol IV .Q0M [facility] Rx#:[id number] Sodium Acetate 50 meq 956.25 1033.75 Potassium Acetate 28 meq In Amino Acids 5 %/ Dextrose 20 % 1,000 ml @ 75 mls/hr IV .BY DURATION WADE Rx#:[id number] Output: Gastric Drainage 150 450 Drainage 100 Abdomen 100 Urine 1535 1875 480 Other: Voiding Method Indwelling Catheter Indwelling Catheter # Bowel Movements 1 1 ABP, PAP, CO, CI - Last Documented Arterial Blood Pressure 110/65 Pulmonary Artery Pressure 33/14 Cardiac Output 6.7 Cardiac Index 3.1 - Labs CBC & Chem 7: 08/09/20 03:00 08/09/20 03:00 Labs: Abnormal Lab Results - Last 24 Hours (Table) 08/08/20 08/08/20 08/08/20 Range/Units 12:02 13:05 14:12 WBC (3.8-10.6) k/uL RBC (4.30-5.90) m/uL Hgb (13.0-17.5) gm/dL Hct (39.0-53.0) % MCHC (31.0-37.0) g/dL RDW (11.5-15.5) % Neutrophils # (1.3-7.7) k/uL Lymphocytes # (1.0-4.8) k/uL Chloride (98-107) mmol/L BUN (9-20) mg/dL Creatinine (0.66-1.25) mg/dL Glucose (74-99) mg/dL POC Glucose (mg/dL) 174 H 139 H 116 H (75-99) mg/dL Ionized Calcium Tamara (4.5-5.3) mg/dL ALT (4-49) U/L Total Protein (6.3-8.2) g/dL Albumin (3.5-5.0) g/dL 08/08/20 08/08/20 08/08/20 Range/Units 15:15 15:58 17:25 WBC (3.8-10.6) k/uL RBC (4.30-5.90) m/uL Hgb (13.0-17.5) gm/dL Hct (39.0-53.0) % MCHC (31.0-37.0) g/dL RDW (11.5-15.5) % Neutrophils # (1.3-7.7) k/uL Lymphocytes # (1.0-4.8) k/uL Chloride (98-107) mmol/L BUN (9-20) mg/dL Creatinine (0.66-1.25) mg/dL Glucose (74-99) mg/dL POC Glucose (mg/dL) 138 H 145 H 137 H (75-99) mg/dL Ionized Calcium Tamara (4.5-5.3) mg/dL ALT (4-49) U/L Total Protein (6.3-8.2) g/dL Albumin (3.5-5.0) g/dL 08/08/20 08/08/20 08/08/20 Range/Units 18:27 19:12 21:03 WBC (3.8-10.6) k/uL RBC (4.30-5.90) m/uL Hgb (13.0-17.5) gm/dL Hct (39.0-53.0) % MCHC (31.0-37.0) g/dL RDW (11.5-15.5) % Neutrophils # (1.3-7.7) k/uL Lymphocytes # (1.0-4.8) k/uL Chloride (98-107) mmol/L BUN (9-20) mg/dL Creatinine (0.66-1.25) mg/dL Glucose (74-99) mg/dL POC Glucose (mg/dL) 124 H 107 H 156 H (75-99) mg/dL Ionized Calcium Tamara (4.5-5.3) mg/dL ALT (4-49) U/L Total Protein (6.3-8.2) g/dL Albumin (3.5-5.0) g/dL 08/08/20 08/08/20 08/09/20 Range/Units 22:46 23:49 01:07 WBC (3.8-10.6) k/uL RBC (4.30-5.90) m/uL Hgb (13.0-17.5) gm/dL Hct (39.0-53.0) % MCHC (31.0-37.0) g/dL RDW (11.5-15.5) % Neutrophils # (1.3-7.7) k/uL Lymphocytes # (1.0-4.8) k/uL Chloride (98-107) mmol/L BUN (9-20) mg/dL Creatinine (0.66-1.25) mg/dL Glucose (74-99) mg/dL POC Glucose (mg/dL) 183 H 155 H 134 H (75-99) mg/dL Ionized Calcium Tamara (4.5-5.3) mg/dL ALT (4-49) U/L Total Protein (6.3-8.2) g/dL Albumin (3.5-5.0) g/dL 08/09/20 08/09/20 08/09/20 Range/Units 03:00 03:00 03:05 WBC 13.6 H (3.8-10.6) k/uL RBC 2.82 L (4.30-5.90) m/uL Hgb 8.6 L (13.0-17.5) gm/dL Hct 28.0 L (39.0-53.0) % MCHC 30.8 L (31.0-37.0) g/dL RDW 18.1 H (11.5-15.5) % Neutrophils # 12.2 H (1.3-7.7) k/uL Lymphocytes # 0.4 L (1.0-4.8) k/uL Chloride 115 H (98-107) mmol/L BUN 62 H (9-20) mg/dL Creatinine 1.54 H (0.66-1.25) mg/dL Glucose 122 H (74-99) mg/dL POC Glucose (mg/dL) 114 H (75-99) mg/dL Ionized Calcium Tamara 5.7 H (4.5-5.3) mg/dL ALT 96 H (4-49) U/L Total Protein 4.9 L (6.3-8.2) g/dL Albumin 2.2 L (3.5-5.0) g/dL 08/09/20 08/09/20 08/09/20 Range/Units 04:48 05:57 06:58 WBC (3.8-10.6) k/uL RBC (4.30-5.90) m/uL Hgb (13.0-17.5) gm/dL Hct (39.0-53.0) % MCHC (31.0-37.0) g/dL RDW (11.5-15.5) % Neutrophils # (1.3-7.7) k/uL Lymphocytes # (1.0-4.8) k/uL Chloride (98-107) mmol/L BUN (9-20) mg/dL Creatinine (0.66-1.25) mg/dL Glucose (74-99) mg/dL POC Glucose (mg/dL) 152 H 189 H 144 H (75-99) mg/dL Ionized Calcium Tamara (4.5-5.3) mg/dL ALT (4-49) U/L Total Protein (6.3-8.2) g/dL Albumin (3.5-5.0) g/dL 08/09/20 08/09/20 Range/Units 07:47 10:40 WBC (3.8-10.6) k/uL RBC (4.30-5.90) m/uL Hgb (13.0-17.5) gm/dL Hct (39.0-53.0) % MCHC (31.0-37.0) g/dL RDW (11.5-15.5) % Neutrophils # (1.3-7.7) k/uL Lymphocytes # (1.0-4.8) k/uL Chloride (98-107) mmol/L BUN (9-20) mg/dL Creatinine (0.66-1.25) mg/dL Glucose (74-99) mg/dL POC Glucose (mg/dL) 139 H 157 H (75-99) mg/dL Ionized Calcium Tamara (4.5-5.3) mg/dL ALT (4-49) U/L Total Protein (6.3-8.2) g/dL Albumin (3.5-5.0) g/dL Microbiology - Last 24 Hours (Table) 08/02/20 21:48 Blood Culture - Final Blood No Growth after 144 hours 08/02/20 19:25 Blood Culture - Final Blood No Growth after 144 hours 08/03/20 12:20 Catheter Tip Culture - Final Catheter Tip Staphylococcus epidermidis
[2020-08-09 11:52] LABS: Glucose,Whole Blood 159 mg/dL (75-99)
[2020-08-09] MEDS: FAT EMULSION 20% 250 ML IV SCH (12:01)
[2020-08-09 13:19] LABS: Glucose,Whole Blood 141 mg/dL (75-99)
[2020-08-09] MEDS ORDERED: LORazepam 2 MG/ML INJ IV STA (13:36)
[2020-08-09 13:43] LABS: ABG Base Excess 2.8 mmol/L; ABG HCO3 27 mmol/L (21-25); ABG Oxygen Saturation 97.6 % (94-97); ABG PCO2 43 mmHg (35-45); ABG PH 7.42 (7.35-7.45); ABG PO2 80 mmHg (83-108); ABG TCO2 29 mmol/L (19-24); Allen Test Performed? Yes
[2020-08-09 15:17] LABS: Glucose,Whole Blood 123 mg/dL (75-99)
[2020-08-09 16:06] LABS: Glucose,Whole Blood 88 mg/dL (75-99)
[2020-08-09 17:03] LABS: Glucose,Whole Blood 106 mg/dL (75-99)
[2020-08-09 19:03] LABS: Glucose,Whole Blood 186 mg/dL (75-99)
[2020-08-09 20:23] LABS: Glucose,Whole Blood 182 mg/dL (75-99)
--- NOTE | 2020-08-09 22:29 | PN ---
PROGRESS NOTE DATE OF SERVICE: 08/09/2020 REASON FOR FOLLOWUP: Abdominal infection. INTERVAL HISTORY: The patient is currently afebrile. The patient is currently slightly anxious and lethargic. No vomiting or any other changes reported by the nursing staff. PHYSICAL EXAMINATION: Blood pressure 139/64 with a pulse of 104, temperature 98.7. He is 99% on 2 L nasal cannula. General description is an elderly male lying in bed in no distress. RESPIRATORY SYSTEM: Unlabored breathing with decreased intensity of breath sounds. No wheeze. HEART: S1, S2. Regular rate and rhythm. ABDOMEN: Soft. No tenderness. LABS: Hemoglobin 8.9, white count 13.6, BUN of 62, creatinine 1.54. DIAGNOSTIC IMPRESSION AND PLAN: Patient with elevated white count which is multifactorial in this patient who did have ischemic bowel requiring resection and ileostomy, also with possible catheter- associated infection with the catheter culture positive for Staph epidermidis. The patient's white count responded to the daptomycin and meropenem. The patient is currently covered and monitor his clinical course closely. MMODL / IJN: [id number] /
[2020-08-09] MEDS: SODIUM CHLORIDE 0.9% 1,000 ML IV SCH (23:55)
[2020-08-10] MEDS: HYDROmorphone 1 MG/ML 1 ML SYRINGE IVP PRN ×3 (03:23→19:50)
[2020-08-10 03:35] LABS: Anisocytosis Slight; Basophils % (A) 0 %; Eosinophils # (A) 0.1 k/uL (0-0.7); Eosinophils % (A) 1 %; HCT 27.7 % (39.0-53.0); HGB 8.7 gm/dL (13.0-17.5); Hypochromasia Marked; Lymphocytes # (A) 0.4 k/uL (1.0-4.8); Lymphocytes % (A) 5 %; MCH 30.7 pg (25.0-35.0); MCHC 31.4 g/dL (31.0-37.0); MCV 97.7 fL (80.0-100.0); Macrocytosis Slight; Mean Platelet Volume 8.2; Monocytes # (A) 0.5 k/uL (0-1.0); Monocytes % (A) 5 %; Neutrophils # (A) 8.6 k/uL (1.3-7.7); Neutrophils % (A) 88 %; Platelet Count 195 k/uL (150-450); Poikilocytosis Moderate; RBC 2.84 m/uL (4.30-5.90); RDW 17.8 % (11.5-15.5); WBC 9.8 k/uL (3.8-10.6)
[2020-08-10 03:46] LABS: Potassium 4.1 mmol/L (3.5-5.1)
[2020-08-10] MEDS: METOPROLOL TARTRATE 5 MG/5 ML VIAL IVP SCH ×4 (05:23→17:20)
[2020-08-10] MEDS: MEROPENEM 1 GM in SODIUM CHLORIDE 0.9% 100 ML IVPB SCH ×2 (05:23→17:20)
--- NOTE | 2020-08-10 07:15 | P.PN ---
Subjective Progress Note Date: 08/10/20 Principal diagnosis: Symptomatic triple-vessel coronary artery disease, mild left ventricular dysfunction. Previuos medical history of stenting to his right coronary artery in 2003, hypertension, hyperlipidemia, hypothyroid status post partial thyroidectomy, previous tobacco dependence quit smoking 20 years ago, moderate chronic obstructive pulmonary disease with preoperative FEV1 of 56% of predicted value, bullous emphysema, remote history of pneumonia, type 2 diabetes mellitus with a preoperative hemoglobin A1c of 5.2%, chronic kidney disease stage III with a baseline creatinine of 1.4-1.5, family history of premature coronary artery disease with brother having had CABG at less than 50 years old. POD #23 double coronary artery bypass grafting using the left internal mammary artery to left anterior descending coronary artery, reverse greater saphenous vein graft from the aorta to the posterior descending coronary artery. Exclusion of the left atrial appendage using a 35 mm Atriclip, endoscopic harvesting of the right greater saphenous vein from the groin to above the ankle level, graft flow measurement using the [employer] system, intraoperative transesophageal echocardiogram and epi-aortic scanning. Postoperative acute blood loss anemia, expected outcome from hemodilution and cardiopulmonary bypass. Postoperative paroxysmal atrial fibrillation, unexpected but common outcome after open heart surgery. Pneumoperitoneum, unexpected Acute on chronic kidney disease secondary to ATN Pneumatosis of the small bowel POD #17 ischemic bowel, small bowel resection Acute hypoxic respiratory failure with reintubation, prolonged mechanical ventilation, unexpected Acute abdomen, intraperitoneal hemorrhage POD #8 Exploratory laparotomy, washout of peritoneal cavity, ileostomy with small bowel resection Patient's currently laying in the intensive care unit on bipap, was on nasal cannula most of the day yesterday. Unable to communicate verbally, but does nod/shake head and follows commands, no gag reflex. Currently in atrial fibrillation with rate in the low 100s, continues on IV amiodarone. NG tube in place to low intermittent suction with 800 mL green fluid last 24 hours, hypoactive bowel sounds. Abdomen is soft, remains on TPN. Remains on IV Eraxis, daptomyocin, meropenem. Sputum culture from 08/03/20 demonstrating aurora albicans, blood culture negative, CVC catheter tip removed 08/03/20 growing staph epidermis. Temp 99.4F this am, white blood cell count 9.8. Patient had bowel movements 08/08/20 per rectum despite ileostomy. Wound vac in place to mid abdominal incision, changed M-W-F. Patient does tend to favor head tilt to left side with possible left facial droop, will turn head to right side to command, equal but weak bilaterally. Requires frequent oropharengeal suctioning. He does occasionally get very anxious and becomes tachycardic, tachypneic, and hypertensive, evens out with pain medication and gentle coaxing. Objective - Vital Signs Vital signs: Vital Signs Temp 99.4 F 08/10/20 04:00 Pulse 96 08/10/20 06:00 Resp 27 H 08/10/20 06:00 BP 107/72 08/10/20 06:00 Pulse Ox 99 08/10/20 06:00 Intake & Output 08/09/20 08/10/20 08/10/20 18:59 06:59 18:59 Intake Total 2556.283 1331.184 Output Total 3365 1900 Balance -808.717 -568.816 Weight 102.7 kg Intake: IV 1162 1103 DAPTOmycin 650 mg In 100 Sodium Chloride 0.9% 50 ml @ 100 mls/hr IVPB Q48H [facility] Rx#:[id number] Fat Emulsion 20% 250 ml @ 104 167 20.833 mls/hr IV DAILY@ 1200 [facility] Rx#:[id number] Sodium Chloride 0.9% 1, 100 000 ml @ 20 mls/hr IV . Q24H [facility] Rx#:[id number] TPN 825 900 pressure bag 33 36 Intake, IV Titration 1394.283 228.184 Amount Amiodarone 300 mg In 194.375 161.25 Dextrose 5% in Water 250 ml @ 0.25 MG/MIN 12.5 mls /hr IV .Q20H [facility] Rx#: [id number] Insulin Regular 100 unit 66.158 66.934 In Sodium Chloride 0.9% 100 ml @ Per Protocol IV .Q0M [facility] Rx#:[id number] Meropenem 1 gm In Sodium 100 Chloride 0.9% 100 ml @ 33 .333 mls/hr IVPB Q12H [facility] Rx#:[id number] Sodium Acetate 50 meq 1033.75 Potassium Acetate 28 meq In Amino Acids 5 %/ Dextrose 20 % 1,000 ml @ 75 mls/hr IV .BY DURATION WADE Rx#:[id number] Output: Gastric Drainage 400 200 Drainage 10 Abdomen 10 Urine 2955 1700 Other: Voiding Method Indwelling Catheter Indwelling Catheter ABP, PAP, CO, CI - Last Documented Arterial Blood Pressure 128/60 Pulmonary Artery Pressure 33/14 Cardiac Output 6.7 Cardiac Index 3.1 - Constitutional General appearance: Present: cooperative, no acute distress, obese - Respiratory Details: Lungs sounds diminished bilaterally. Respirations even, mostly non-labored, occasional tachypnea. Currently on bipap, 40% FiO2, IPAP 12, EPAP 5 with oxygen saturation 98%. Strong cough but requires suctioning to clear secretions. - Cardiovascular Details: S1, S2 present. Irregular rate and rhythm, atrial fibrillation on telemetry with rate in the low 100s, patient goes back and forth between afib and NSR. Sternum stable. Palpable peripheral pulses bilaterally. Generalized upper extremity edema present, less than yesterday. Heart hugger, antiembolism stockings, SCDs present. Right brachial PICC line, left radial arterial line present. - Gastrointestinal Gastrointestinal Comment(s): Abdomen soft, nontender, nondistended. Very hypoactive bowel sounds present. NG tube present to low intermittent suction with 800 mL green drainage in 24 hours. Ileostomy present to RLQ, stoma pink and moist, minimal serous output, no flatus. Positive BM per rectum 08/08/20 - Genitourinary Genitourinary Comment(s): Villafana catheter present draining clear, yellow urine. Output 60-225 mL/h overnight, 4460 mL in the last 24 hours - Integumentary Integumentary Comment(s): Skin is warm and dry. Anterior chest incision well approximated and covered with dry intact dressing. Right lower extremity EVH site well approximated. Mid abdominal incision open, wound vac in place. The patient has shear injury beneath his right shoulder, Silvadene cream applied, dry dressing in place - Musculoskeletal Musculoskeletal: Present: generalized weakness, strength equal bilaterally - Psychiatric Psychiatric: Present: appropriate affect - Allied health notes Allied health notes reviewed: nursing - Labs CBC & Chem 7: 08/10/20 03:15 08/10/20 03:15 Labs: Abnormal Lab Results - Last 24 Hours (Table) 08/09/20 08/09/20 08/09/20 Range/Units 07:47 10:40 11:50 RBC (4.30-5.90) m/uL Hgb (13.0-17.5) gm/dL Hct (39.0-53.0) % RDW (11.5-15.5) % Neutrophils # (1.3-7.7) k/uL Lymphocytes # (1.0-4.8) k/uL ABG pO2 (83-108) mmHg ABG HCO3 (21-25) mmol/L ABG Total CO2 (19-24) mmol/L ABG O2 Saturation (94-97) % Chloride (98-107) mmol/L BUN (9-20) mg/dL Creatinine (0.66-1.25) mg/dL Glucose (74-99) mg/dL POC Glucose (mg/dL) 139 H 157 H 159 H (75-99) mg/dL 08/09/20 08/09/20 08/09/20 Range/Units 13:17 13:41 15:15 RBC (4.30-5.90) m/uL Hgb (13.0-17.5) gm/dL Hct (39.0-53.0) % RDW (11.5-15.5) % Neutrophils # (1.3-7.7) k/uL Lymphocytes # (1.0-4.8) k/uL ABG pO2 80 L (83-108) mmHg ABG HCO3 27 H (21-25) mmol/L ABG Total CO2 29 H (19-24) mmol/L ABG O2 Saturation 97.6 H (94-97) % Chloride (98-107) mmol/L BUN (9-20) mg/dL Creatinine (0.66-1.25) mg/dL Glucose (74-99) mg/dL POC Glucose (mg/dL) 141 H 123 H (75-99) mg/dL 08/09/20 08/09/20 08/09/20 Range/Units 17:01 19:01 20:22 RBC (4.30-5.90) m/uL Hgb (13.0-17.5) gm/dL Hct (39.0-53.0) % RDW (11.5-15.5) % Neutrophils # (1.3-7.7) k/uL Lymphocytes # (1.0-4.8) k/uL ABG pO2 (83-108) mmHg ABG HCO3 (21-25) mmol/L ABG Total CO2 (19-24) mmol/L ABG O2 Saturation (94-97) % Chloride (98-107) mmol/L BUN (9-20) mg/dL Creatinine (0.66-1.25) mg/dL Glucose (74-99) mg/dL POC Glucose (mg/dL) 106 H 186 H 182 H (75-99) mg/dL 08/10/20 08/10/20 Range/Units 03:15 03:15 RBC 2.84 L (4.30-5.90) m/uL Hgb 8.7 L (13.0-17.5) gm/dL Hct 27.7 L (39.0-53.0) % RDW 17.8 H (11.5-15.5) % Neutrophils # 8.6 H (1.3-7.7) k/uL Lymphocytes # 0.4 L (1.0-4.8) k/uL ABG pO2 (83-108) mmHg ABG HCO3 (21-25) mmol/L ABG Total CO2 (19-24) mmol/L ABG O2 Saturation (94-97) % Chloride 112 H (98-107) mmol/L BUN 60 H (9-20) mg/dL Creatinine 1.46 H (0.66-1.25) mg/dL Glucose 129 H (74-99) mg/dL POC Glucose (mg/dL) (75-99) mg/dL - Imaging and Cardiology Chest x-ray: image reviewed Assessment and Plan Assessment: 1. Symptomatic triple-vessel coronary artery disease, status post 2 vessel CABG 2. Mild left ventricular dysfunction 3. Previuos history of stenting to his right coronary artery in 2002 4. Hypertension 5. Hyperlipidemia 6. Hypothyroid status post partial thyroidectomy 7. Previous tobacco dependence with bullous emphysema 8. Moderate chronic obstructive pulmonary disease with preoperative FEV1 of 56% of predicted value 9. Remote history of pneumonia 10. Type 2 diabetes mellitus with a preoperative hemoglobin A1c of 5.2% 11. Chronic kidney disease stage III with a baseline creatinine of 1.4-1.5 12. Family history of premature coronary artery disease with brother having had CABG at less than 50 years old 13. Postoperative acute blood loss anemia, expected outcome 14. Postoperative paroxysmal atrial fibrillation, unexpected, status post exclusion of the left atrial appendage 15. Pneumoperitoneum, unexpected 16. Acute on chronic kidney disease with hyponatremia, hyperkalemia 17. Pneumatosis of the small bowel, status post small bowel resection 18. Sputum culture positive for pseudomonas fluorescens, second sputum positive for aurora 19. Acute hypoxic respiratory failure with reintubation, prolonged mechanical ventilation 20. Acute abdomen, intraperitoneal hemorrhage, S/P exploratory laparotomy, washout of peritoneal cavity, ileostomy with small bowel resection Plan: 1. Continue low dose aspirin, IV lopressor. 2. Continue IV amiodarone for afib. No anticoagulation 3. Wean oxygen/bipap as tolerated. Bronchodilators, inhaled steroids per pulmonology management. 4. Will monitor daily labs and chest x-rays. 5. GI/DVT prophylaxis. 6. Pain control with current medication regimen. 7. Insulin management per Dr. Polk 8. Continue TPN per RD. No tube feedings per Dr. Dempsey. Keep NGT to LIS 9. Nephrology following. Avoid nephrotoxic agents. IV lasix given yesterday with excellent diuresis and improvement in kidney function 10. Strict accurate intake and output, daily weight 11. Continue IV Eraxis day #6, meropenem day#4, daptomycin day#6 per infectious disease. 12. Wound vac to be changed -- 13. More recommendations to follow based on patient's clinical course. Time with Patient: Greater than 30
[2020-08-10] MEDS: BUDESONIDE 1 MG/2 ML NEBU INHALATION SCH ×2 (07:47→19:59)
[2020-08-10] MEDS: ACETYLCYSTEINE 800 MG/4 ML VIAL INHALATION SCH ×3 (07:47→19:58)
[2020-08-10] MEDS: FORMOTEROL FUMARATE 20 MCG/2 ML NEBU INHALATION SCH ×2 (07:47→19:59)
[2020-08-10] MEDS: IPRATROPIUM-ALBUTEROL 3 ML NEB INHALATION SCH ×4 (07:47→20:01)
[2020-08-10] MEDS: ANIDULAFUNGIN 100 MG in SODIUM CHLORIDE 0.9% 100 ML IVPB SCH (09:09)
[2020-08-10] MEDS: PANTOPRAZOLE 40 MG/10 ML VIAL IVP SCH ×2 (09:15→19:50)
[2020-08-10] MEDS: LEVOTHYROXINE IVP 100 MCG/5 ML VIAL IV SCH (09:15)
[2020-08-10] MEDS: ASPIRIN 81 MG PO SCH (09:15)
[2020-08-10] MEDS: CHLORHEXIDINE GLUCONATE 15 ML CUP MUCOUS MEM SCH ×2 (09:15→19:50)
[2020-08-10] MEDS: HEPARIN SODIUM,PORCINE 5,000 UNIT/ML 1 ML VIAL SQ SCH ×3 (09:15→15:09)
--- NOTE | 2020-08-10 09:35 | PN ---
PROGRESS NOTE Francisco is a 80-year-old gentleman with history of CAD status post CABG. He has had prolonged hospitalization and complex multiple medical problems. Today is postop day #23. He had bypass and left atrial appendage AtriClip. He has had intermittent episodes of atrial fibrillation, but currently remains in sinus rhythm. He is confused and at times combative. PHYSICAL EXAMINATION: On exam, heart rate is 90 beats per minute. Blood pressure is 116/74. Respiratory rate is 18. O2 saturation is 98%. There is no jugular venous distention. Chest exam reveals good air entry bilaterally. Heart exam reveals first and second heart sounds. No gallop. No murmur. Abdomen is soft. Exam of extremities did not reveal any edema. Peripheral pulses are felt. LABS: Labs show a hemoglobin of 8.7, potassium 4.1. Creatinine 1.4. ASSESSMENT: 1. Coronary artery disease, status post coronary artery bypass grafting. 2. Renal failure. 3. Paroxysmal atrial fibrillation. PLAN: Continue current medication. MMODL / IJN: [id number] /
[2020-08-10] MEDS ORDERED: FUROSEMIDE 10 MG/ML 4 ML VIAL IV STA (10:54)
--- NOTE | 2020-08-10 11:08 | P.PN ---
Subjective Progress Note Date: 08/10/20 Patient this morning is confused. He is only AAO 1. He is currently on amiodarone drip. He is tachypneic. He is on nasal cannula. Objective - Vital Signs Vital signs: Vital Signs Temp 99.2 F 08/10/20 08:00 Pulse 97 08/10/20 11:00 Resp 26 H 08/10/20 11:00 BP 129/78 08/10/20 11:00 Pulse Ox 97 08/10/20 11:00 Intake & Output 08/09/20 08/10/20 08/10/20 18:59 06:59 18:59 Intake Total 2556.283 1331.184 464.833 Output Total 3365 1900 585 Balance -808.717 -568.816 -120.167 Weight 102.7 kg 102.7 kg Intake: IV 1162 1103 452 DAPTOmycin 650 mg In 100 100 Sodium Chloride 0.9% 50 ml @ 100 mls/hr IVPB Q48H [facility] Rx#:[id number] Fat Emulsion 20% 250 ml @ 104 167 0 20.833 mls/hr IV DAILY@ 1200 [facility] Rx#:[id number] Sodium Chloride 0.9% 1, 100 40 000 ml @ 20 mls/hr IV . Q24H [facility] Rx#:[id number] TPN 825 900 300 pressure bag 33 36 12 Intake, IV Titration 1394.283 228.184 12.833 Amount Amiodarone 300 mg In 194.375 161.25 Dextrose 5% in Water 250 ml @ 0.25 MG/MIN 12.5 mls /hr IV .Q20H [facility] Rx#: [id number] Insulin Regular 100 unit 66.158 66.934 12.833 In Sodium Chloride 0.9% 100 ml @ Per Protocol IV .Q0M [facility] Rx#:[id number] Meropenem 1 gm In Sodium 100 Chloride 0.9% 100 ml @ 33 .333 mls/hr IVPB Q12H [facility] Rx#:[id number] Sodium Acetate 50 meq 1033.75 Potassium Acetate 28 meq In Amino Acids 5 %/ Dextrose 20 % 1,000 ml @ 75 mls/hr IV .BY DURATION [facility] Rx#:[id number] Output: Gastric Drainage 400 200 Drainage 10 Abdomen 10 Urine 2955 1700 585 Other: Voiding Method Indwelling Catheter Indwelling Catheter ABP, PAP, CO, CI - Last Documented Arterial Blood Pressure 142/60 Pulmonary Artery Pressure 33/14 Cardiac Output 6.7 Cardiac Index 3.1 - Exam General examination - Alert and Oriented 1 in [id number] respiratory distress, appears chronically debilitated Heart - + S1S2 no murmurs Lungs - diminished breath sounds bilaterally, tachypneic Abdomen soft NT ND +ve BS Extremities - diffuse generalized edema [employer]IST - Moving all 4 extremities spontaneously Psych - moderately confused - Labs CBC & Chem 7: 08/10/20 03:15 08/10/20 03:15 Labs: Abnormal Lab Results - Last 24 Hours (Table) 08/09/20 08/09/20 08/09/20 Range/Units 11:50 13:17 13:41 RBC (4.30-5.90) m/uL Hgb (13.0-17.5) gm/dL Hct (39.0-53.0) % RDW (11.5-15.5) % Neutrophils # (1.3-7.7) k/uL Lymphocytes # (1.0-4.8) k/uL ABG pO2 80 L (83-108) mmHg ABG HCO3 27 H (21-25) mmol/L ABG Total CO2 29 H (19-24) mmol/L ABG O2 Saturation 97.6 H (94-97) % Chloride (98-107) mmol/L BUN (9-20) mg/dL Creatinine (0.66-1.25) mg/dL Glucose (74-99) mg/dL POC Glucose (mg/dL) 159 H 141 H (75-99) mg/dL 08/09/20 08/09/20 08/09/20 Range/Units 15:15 17:01 19:01 RBC (4.30-5.90) m/uL Hgb (13.0-17.5) gm/dL Hct (39.0-53.0) % RDW (11.5-15.5) % Neutrophils # (1.3-7.7) k/uL Lymphocytes # (1.0-4.8) k/uL ABG pO2 (83-108) mmHg ABG HCO3 (21-25) mmol/L ABG Total CO2 (19-24) mmol/L ABG O2 Saturation (94-97) % Chloride (98-107) mmol/L BUN (9-20) mg/dL Creatinine (0.66-1.25) mg/dL Glucose (74-99) mg/dL POC Glucose (mg/dL) 123 H 106 H 186 H (75-99) mg/dL 08/09/20 08/10/20 08/10/20 Range/Units 20:22 03:15 03:15 RBC 2.84 L (4.30-5.90) m/uL Hgb 8.7 L (13.0-17.5) gm/dL Hct 27.7 L (39.0-53.0) % RDW 17.8 H (11.5-15.5) % Neutrophils # 8.6 H (1.3-7.7) k/uL Lymphocytes # 0.4 L (1.0-4.8) k/uL ABG pO2 (83-108) mmHg ABG HCO3 (21-25) mmol/L ABG Total CO2 (19-24) mmol/L ABG O2 Saturation (94-97) % Chloride 112 H (98-107) mmol/L BUN 60 H (9-20) mg/dL Creatinine 1.46 H (0.66-1.25) mg/dL Glucose 129 H (74-99) mg/dL POC Glucose (mg/dL) 182 H (75-99) mg/dL Assessment and Plan Assessment: 1. CAD s/p CABG with 2v bypass, PABLO to LAD, and SVG to posterior decending coronary artery 2. Paroxysmal Atrial Fibrillation, with RVR 3. 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 Pneumatosis, Ischemic Bowel, s/p small bowel resection 5. Acute Blood Loss Anemia, post-operative, resolved 6. Pneumoperitoneum secondary to chest tubes, Resolved 7. CONNOR superimposed on CKD, stage III, Resolved 8. Hypertension, essential 9. Hyperlipidemia 10. Type II DM, uncontrolled 11. Hypothyroidism 12. Obesity, BMI 30.5 13. Hyponatremia and Hyperkalemia 80 year old man with history of COPD, CKD III, HTN/HLD/CAD/DM, Obesity presented for symptomatic CAD and underwent 2v CABG with post-operative course complicated by respiratory failure secondary to COPD exacerbation, blood loss anemia, paroxysmal atrial fibrillation with RVR, and metabolic derangements. DM 2 - hold metformin - Inulin subcutaneous with sliding scale insulin coverage, check blood sugars every before meals and at bedtime, Levemir added on 07/21. - Blood sugars currently controlled, follow blood sugars closely - A1C from 06/21/2020 5.2, anticipate discharge home back on metformin which may be able to come off in the near future in the outpatient setting. Small Bowel Ischemia - surgery consult - s/p resection/anastamosis, s/p anastamosis take down and diverting ileostomy - on daptomycin/meropenem/eraxis - MRSA nares negative -Patient currently on TPN as per surgery recommendations. A-fib with RVR On metoprolol 2.5 IV q6h Off cardizem gtt Patient on amiodarone drip Eliquis held due to bleeding, now on heparin q8h for DVT PPx CONNOR on CKD stage III Baseline cr 1.4-1.5 Likely cardiorenal syndrome, patient received contrast earlier in the admission. Nephro on board Resolved Acute hyponatremia Likely sec to renal failure Resolved Hyperkalemia Resolved Pneumoperitoneum suspect secondary to mediastinal chest tubes -Tube d/melody -Resolved. Constipation On Senokot, MiraLAX Had a bowel movement today Acute blood loss anemia and thrombocytopenia, anticipated outcome of surgery - follow CBC - transfuse as indicated COPD with acute exacerbation - Pulm managing steroids - DuoNebs - on spiriva and advair at home -patient high risk for reintubation Coronary artery disease -Status post coronary artery bypass grafting -Cardiothoracic and cardiology following HTN - meds per CT surgery - follow BP Hypothyroidism status post partial thyroidectomy - synthroid Morbid obesity with BMI 30.5 -Outpatient structured weight loss Chronic: CRAIG Jacobs's Prognosis is guarded due to multiple active medication conditions.
--- NOTE | 2020-08-10 11:16 | P.PN ---
Subjective Progress Note Date: 08/10/20 Principal diagnosis: Coronary artery disease, status post three-vessel bypass grafting 79-year-old white male patient with past medical history of hypertension, hyperlipidemia, moderate to severe COPD with the baseline FEV1 of 56% of predicted who came in on 07/18/2020 for elective two-vessel bypass grafting with PABLO to LAD, and SVG to the PDA. He was seen in the intensive care unit following surgery, patient was successfully weaned and extubated from mechanical ventilator and under 6 hours following his OR exit, is currently awake and alert, sitting in the chair, he is currently on 2 L of oxygen, his pulse ox is 98%, hemodynamically he stable, blood pressure is 106/51, PA pressures 35/11, CVP is 8, no fever or chills, IV fluids including the 0.9 normal saline at a ra te of 30 ML per hour, insulin is 4.5 units per hour, no vasoactive drips. Today's chest x-ray shows a pneumoperitoneum with lucency present underneath the right hemidiaphragm. He has left pleural and mediastinal chest tube, and there has been 500 mL of serosanguineous output from the left pleural and 350 mL from the mediastinal chest tube in the last 24 hours. Is having some mild discomfort under the right rib cage, but no acute distress, abdomen is distended but soft, he is hemodynamically stable, he is in sinus mechanism, no nausea vomiting or diarrhea. CT of the abdomen and pelvis is pending today's labs have been reviewed, showing white blood cell count of 11.9, hemoglobin of 9, sodium is 133, the rest of the electrolytes were within normal limits, B1 is 25 creatinine is 1.18 On 07/21/2020 patient seen in follow-up in the intensive care unit, today is postoperative day 3 status post three-vessel coronary artery bypass grafting, (patient became more short of breath, wheezy, patient has a known history of moderately severe COPD/emphysema, we started him on IV Solu-Medrol, and Pulmicort and Perforomist were added. This morning she remains on 3 L of oxygen his pulse ox is 94-95%, hemodynamically he stable, he just on plan and was seen and rated 20 ML per hour, insulin is a 2.5 units per hour, today's chest x-ray showing slight increased bibasilar atelectasis or infiltrates. He thinks the breathing treatments in the steroids have significantly helped, breathing easier, he is achieving 500-750 on his incentive spirometer, not able to bring up any sputum yet. he is currently sitting up in a chair, in no acute distress, his incisional pain is fairly well-controlled, patient had another episode of A. fib with RVR last night, he is back in sinus rhythm with a controlled rate this morning. He received a dose of Lasix this morning. Chest tubes have been discontinued. On 07/31/2020 patient seen in follow-up in the intensive care unit. He is postoperative day 12 status post three-vessel bypass grafting, and postoperative day #7 status post exploratory laparotomy and small bowel resection, he is awake and alert, he was extubated yesterday to a BiPAP support, this morning he remains on BiPAP, pressures of 10 and 5, and FiO2 of 35%, and his pulse ox is 100%, hemodynamically he stable, he is A. fib on a monitor with a rate of 98 BPM, he is currently on 9.9 normal seen at a rate of 10 ML per hour, insulin is at 2 units per hour, amiodarone at 0.5 mg per hour, heparin is at weight-based protocol, and TPN is a 75 ML per hour. Today's chest x-ray shows a stable portable chest, with bibasilar infiltrates greater on the right. She remains on Lasix at 40 mg every 12 hours, and he is negative fluid balance negative, at - 645 ML over the last 24 hours. No fever or chills, appears to be normally swollen, we will plus edema in lower extremities, his labs have been reviewed, showing white blood cell count 15.1, hemoglobin of 8, sodium of 132, potassium is 3.5, chloride is 100, his BUN is 63, and a creatinine is 1.94, calcitonin is trending down, down to 1.41 from 3.53. He remains on Zosyn or antibiotic coverage for evidence of Pseudomonas in his sputum culture. His NG tube in place to low intermittent suction, and there has been about 400 mL of bilious output in the last 24 hours, patient is passing gas but has not had any bowel movement yet. Surgical services are following. On 08/07/2020 patient seen in follow-up in the intensive care unit. This is postop day #20, status post 2 vessel bypass grafting, postop day #14, status post small bowel resection, and postop day #5 status post exploratory laparotomy and washout of peritoneal cavity and ileostomy with small bowel resection. Patient remains intubated, sedated, on assist-control mode of ventilation with a rate of 24, tidal volume is 500, FiO2 40%, and PEEP of 5, despite his blood ga ses showed pO2 of 1:30, pCO2 41, and pH of 7.30, and FiO2 had since been dropped to 30%. Is currently on Precedex at 0.6 mics per kilo per minute, amiodarone at 0.25 mg/m, insulin is currently off, levo fed is currently at 1 rito per minute, and 0.9 normal saline at a rate of 20 ML per hour, he is receiving nutrition in the form of TPN at a rate of 75 ML per hour, yesterday patient was woken up and he had a half an hour of spontaneous breathing trials however it became very tachypneic after half an hour, and had to be placed on assist-control mode of ventilation and sedated. Today's chest x-ray shows stable appearance of bibasilar opacities. Vital signs have been stable overnight, no fever. No vasoactive drips. Current antibiotics include meropenem, daptomycin, and Eraxis. White count is trending down, and is down to 7.6 and today's labs, hemoglobin 7.6, sodium is 138, potassium is 4.4, chloride is 114, CO2 is 21, BUN is 83, and creatinine is 2.19. G-tube remains in place, and the amount of drainage from it has been decreasing, with only 350 ML over the last 24 hours. Abdomen is nontender, wound VAC is in place. Bowel sounds are auscultated but they are hypoactive, right lower abdomen ileostomy has not produced any stool, and there is only liquid serosanguineous dark output from daily ostomy, no gas. On 08/08/2020 he is seen in follow-up in intensive care unit, he is awake, is following commands, no agitation, yesterday she went in on pressure-support of 10/CPAP of 5 for 10 hours, he was placed back on assist control mode overnight, this morning he is back on on pressure-support of 10, tolerating it well so far. Today's chest x-ray shows bilateral basilar opacities. This morning's blood gases were reviewed, showing pO2 of 99, pCO2 38, pH of 7.38. Patient is currently on 0.9 normal saline at a rate of 10, TPN is a 75 ML per hour, he is on amiodarone at 0.25 mg/m, Precedex at 0.5 mics per kilo per minute, and insulin is at 8.5 units per hour. Today's labs have been reviewed, with blood cell count is down to 10.2, hemoglobin is 7.9, sodium is 142, potassium is 4.5, chloride is 1:15, CO2 is 23, BUN is 78, creatinine is improving, is down to 1.8. he is on meropenem, daptomycin and Eraxis for abiotic coverage, ID service is following, microbiology data has been reviewed, showing only Radha albicans most recent sputum culture. Previous sputum culture from 07/24/2020 was positive for pseudomonas fluorescence/putida. Patient apparently passed large bowel movements per rectum, with no visible blood in it last night, his ileostomy is in place, with no gas, not producing any stool. Abdomen is nontender, bowel sounds are hypoactive. On 08/10/2020 patient seen in follow-up in intensive care unit, he is currently on BiPAP, with pressures of 12/5, and FiO2 of 40%. He has been on BiPAP most of the night, he is currently on TPN at 75 ML per hour, insulin is at 7 units per hour, amiodarone at 0.25 mg/m, is 0.9 at 20 ML per hour. Patient appears to be fatigued, he appears weak, today's chest x-ray has been done however having trouble looking at the film, as the synapse is experiencing problems related to last night's power outage. Today's labs have been reviewed, showing white blood cell, 9.8, hemoglobin of 8.7, sodium 144, potassium is 4.1, chloride is 112, BUN 16 creatinine is 1.46. he received a dose of Lasix yesterday, and he has made 5.2 L in urine output over the last 24 hours, and he is in -1.3 L net fluid balance. He still very swollen, with the generalized edema he is weak. Lung sounds reveal scattered crackles, and diminished breath sounds bilaterally. He is not able to do his incentive spirometer related to being on BiPAP. Remains on antibiotics including meropenem, Eraxis, and daptomycin. His had some low-grade temps this morning, with a temp of 99.4F. Leukocytosis has improved, and is currently at 9.8. Patient has ileostomy in place however it has not had any stool or gas in it, he is having bowel movements per rectum. There is a wound VAC in place in the mid abdominal incision. A questionable left-sided facial droop, but bilateral arm and leg strength seems to be weak bilaterally Objective - Vital Signs Vital signs: Vital Signs Temp 99.2 F 08/10/20 08:00 Pulse 97 08/10/20 11:00 Resp 26 H 08/10/20 11:00 BP 129/78 08/10/20 11:00 Pulse Ox 97 08/10/20 11:00 Intake & Output 08/09/20 08/10/20 08/10/20 18:59 06:59 18:59 Intake Total 2556.283 1331.184 464.833 Output Total 3365 1900 585 Balance -808.717 -568.816 -120.167 Weight 102.7 kg 102.7 kg Intake: IV 1162 1103 452 DAPTOmycin 650 mg In 100 100 Sodium Chloride 0.9% 50 ml @ 100 mls/hr IVPB Q48H [facility] Rx#:[id number] Fat Emulsion 20% 250 ml @ 104 167 0 20.833 mls/hr IV DAILY@ 1200 [facility] Rx#:[id number] Sodium Chloride 0.9% 1, 100 40 000 ml @ 20 mls/hr IV . Q24H [facility] Rx#:[id number] TPN 825 900 300 pressure bag 33 36 12 Intake, IV Titration 1394.283 228.184 12.833 Amount Amiodarone 300 mg In 194.375 161.25 Dextrose 5% in Water 250 ml @ 0.25 MG/MIN 12.5 mls /hr IV .Q20H [facility] Rx#: [id number] Insulin Regular 100 unit 66.158 66.934 12.833 In Sodium Chloride 0.9% 100 ml @ Per Protocol IV .Q0M [facility] Rx#:[id number] Meropenem 1 gm In Sodium 100 Chloride 0.9% 100 ml @ 33 .333 mls/hr IVPB Q12H [facility] Rx#:[id number] Sodium Acetate 50 meq 1033.75 Potassium Acetate 28 meq In Amino Acids 5 %/ Dextrose 20 % 1,000 ml @ 75 mls/hr IV .BY DURATION [facility] Rx#:[id number] Output: Gastric Drainage 400 200 Drainage 10 Abdomen 10 Urine 2955 1700 585 Other: Voiding Method Indwelling Catheter Indwelling Catheter ABP, PAP, CO, CI - Last Documented Arterial Blood Pressure 142/60 Pulmonary Artery Pressure 33/14 Cardiac Output 6.7 Cardiac Index 3.1 - Exam GENERAL EXAM: awake, follows simple command 79-year-old, white male, intubated, on pressure support of 10 and CPAP of 5 and FiO2 of 30% with FiO2 of 40%, and PEEP of 5. HEAD: Normocephalic/atraumatic. EYES: Normal reaction of pupils, equal size. Conjunctiva pink, sclera white. NOSE: Clear with pink turbinates. THROAT: No erythema or exudates. NECK: No masses, no JVD, no thyroid enlargement, no adenopathy. CHEST: No chest wall deformity. Symmetrical expansion. Sternal incision is clean dry and intact, chest tube sites clean dry and intact LUNGS: Equal air entry with no crackles, wheeze, rhonchi or dullness. CVS: irregular rate and rhythm, normal S1 and S2, no gallops, no murmurs, no rubs ABDOMEN: Soft, nontender. No hepatosplenomegaly, normal bowel sounds, no guarding or rigidity. Abdominal incision with a wound VAC in place. Right lower abdominal ileostomy with no gas, only liquid dark serosanguineous output, no stool EXTREMITIES: No clubbing, mild generalized edema, no cyanosis, 2+ pulses and upper and lower extremities. MUSCULOSKELETAL: Muscle strength and tone normal. SPINE: No scoliosis or deformity SKIN: No rashes CENTRAL NERVOUS SYSTEM: Sedated, intubated. No focal deficits, tone is normal in all 4 extremities. - Labs CBC & Chem 7: 08/10/20 03:15 08/10/20 03:15 Labs: Abnormal Lab Results - Last 24 Hours (Table) 08/09/20 08/09/20 08/09/20 Range/Units 11:50 13:17 13:41 RBC (4.30-5.90) m/uL Hgb (13.0-17.5) gm/dL Hct (39.0-53.0) % RDW (11.5-15.5) % Neutrophils # (1.3-7.7) k/uL Lymphocytes # (1.0-4.8) k/uL ABG pO2 80 L (83-108) mmHg ABG HCO3 27 H (21-25) mmol/L ABG Total CO2 29 H (19-24) mmol/L ABG O2 Saturation 97.6 H (94-97) % Chloride (98-107) mmol/L BUN (9-20) mg/dL Creatinine (0.66-1.25) mg/dL Glucose (74-99) mg/dL POC Glucose (mg/dL) 159 H 141 H (75-99) mg/dL 08/09/20 08/09/20 08/09/20 Range/Units 15:15 17:01 19:01 RBC (4.30-5.90) m/uL Hgb (13.0-17.5) gm/dL Hct (39.0-53.0) % RDW (11.5-15.5) % Neutrophils # (1.3-7.7) k/uL Lymphocytes # (1.0-4.8) k/uL ABG pO2 (83-108) mmHg ABG HCO3 (21-25) mmol/L ABG Total CO2 (19-24) mmol/L ABG O2 Saturation (94-97) % Chloride (98-107) mmol/L BUN (9-20) mg/dL Creatinine (0.66-1.25) mg/dL Glucose (74-99) mg/dL POC Glucose (mg/dL) 123 H 106 H 186 H (75-99) mg/dL 08/09/20 08/10/20 08/10/20 Range/Units 20:22 03:15 03:15 RBC 2.84 L (4.30-5.90) m/uL Hgb 8.7 L (13.0-17.5) gm/dL Hct 27.7 L (39.0-53.0) % RDW 17.8 H (11.5-15.5) % Neutrophils # 8.6 H (1.3-7.7) k/uL Lymphocytes # 0.4 L (1.0-4.8) k/uL ABG pO2 (83-108) mmHg ABG HCO3 (21-25) mmol/L ABG Total CO2 (19-24) mmol/L ABG O2 Saturation (94-97) % Chloride 112 H (98-107) mmol/L BUN 60 H (9-20) mg/dL Creatinine 1.46 H (0.66-1.25) mg/dL Glucose 129 H (74-99) mg/dL POC Glucose (mg/dL) 182 H (75-99) mg/dL Assessment and Plan Plan: Assessment: #1. Symptomatic coronary artery disease, status post two-vessel coronary artery bypass grafting with PABLO to the LAD, SVG to the PDA, on 07/18/2020, postoperative day #22 #2. Postoperative atrial fibrillation with rapid ventricular response requiring amiodarone and metoprolol, currently in sinus mechanism, remains off anticoagulation in view of recent history of bleeding at the anastomosis site of the small bowel resection. Today's hemoglobin is 7.9 on 08/07/2020 #3. Acute ischemic small bowel, status post exploratory laparotomy and small bowel resection, on 07/24/2020, today is postoperative day #16, patient remains on TPN for nutritional support. #4. Status post exploratory laparotomy, washout of peritoneal cavity, and ileostomy with small bowel resection on 08/02/2020 for intraperitoneal bleeding, today's postoperative day #7 #5. Acute hypoxic respiratory failure following bowel surgery, patient was extubated after his original bypass surgery on 07/18/2020, however developed ischemic small bowel, and required intubation on 07/24/2020, was extubated on 07/30/2020 to BiPAP support, and reintubated again on 08/02/2020 for reexploration laparotomy for intraperitoneal bleeding. Patient was again extubated today on 08/08/2020 following satisfactory pressure support trial #6. Small atelectatic/pleural effusions involving both lung bases in addition to a small to moderate bilateral pleural effusion #7. Evidence of Pseudomonas in the sputum culture, patient is covered with Zosyn for antibiotic coverage, repeat sputum culture on 08/03/2022 showed Radha albicans, and patient is on Eraxis, Zosyn, Daptomycin #8. History of coronary artery disease with previous stent placement #9. History of hypertension #10. History of hyperlipidemia #11. Acute kidney injury #12. COPD moderate to severe with preop FEV1 of 53% of predicted #13. 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 Chronic kidney disease stage III at baseline #15. Diabetes mellitus type 2 #16. Postoperative acute blood loss anemia, expected outcome of open heart surgery, and two explor. laparotomy. #17. Postoperative paroxysmal A. fib, patient has had 2 episodes of A. fib with RVR in the postoperative period #18. Hypothyroidism status post partial thyroidectomy Plan: Continue BiPAP support is needed, may trial him on nasal cannula to give him a break off BiPAP however in view of patient's severe general medical debility, and weakness he will require BiPAP support overnight and is needed during the day, chest x-ray has been completed but were unable to view the film, patient still has quite severe generalized edema, he was given another dose of IV Lasix today, I will ask per ID service recommendations, he is having intermittent low- grade fevers, but leukocytosis has improved, remains on TPN for nutritional support. Continue GI and DVT prophylaxis, continue breathing treatments. Maintain aspiration precautions. We'll continue to closely follow the patient in the intensive care unit, he is not ready to transfer out of intensive care unit. I performed a history & physical examination of the patient and discussed their management with my nurse practitioner, Cheli Kendrick. I reviewed the nurse practitioner's note and agree with the documented findings and plan of care. Lung sounds are positive for diminished throughout the lung valdez. The findings and the impression was discussed with the patient. I attest to the documentation by the nurse practitioner. Time with Patient: Greater than 30
--- NOTE | 2020-08-10 12:40 | P.PN ---
Progress Note - Text Progress Note Date: 08/10/20 Patient remains encephalopathic. He is quite confused. He pulled out his PICC line yesterday. On exam vital signs appear stable. There is a small amount of bilious output through the ileostomy. Incision is clean dry tach. Status post CABG with subsequent ischemic small bowel. Patient is improving slowly. Hopefully his metabolic is a lobule improvement 24-48 hours. When he has increased bowel activity we will start resume tube feeds.
--- NOTE | 2020-08-10 13:24 | P.PN ---
Subjective Progress Note Date: 08/10/20 Principal diagnosis: This 80-year-old male seen in consultation because of acute kidney injury, chronic kidney disease, was admitted and underwent coronary artery bypass graft complicated by ischemic bowel requiring further resection and ileostomy. Patient known with diabetes. Currently he is on nasal cannula, on TPN. He is somewhat confused is oriented in restraints Is also known with Patrice scherer, on amiodarone drip, He does have a NG tube draining, ileostomy draining dark liquid. The midline incision has a wound VAC seems to be healing. Low-grade temperature 99.4 Objective - Vital Signs Vital signs: Vital Signs Temp 99.4 F 08/10/20 12:00 Pulse 79 08/10/20 12:00 Resp 24 08/10/20 12:00 BP 129/78 08/10/20 12:00 Pulse Ox 98 08/10/20 12:00 Intake & Output 08/09/20 08/10/20 08/10/20 18:59 06:59 18:59 Intake Total 2556.283 1331.184 671.250 Output Total 3365 1900 1635 Balance -808.717 -568.816 -963.750 Weight 102.7 kg 102.7 kg Intake: IV 1162 1103 638 DAPTOmycin 650 mg In 100 100 Sodium Chloride 0.9% 50 ml @ 100 mls/hr IVPB Q48H [facility] Rx#:[id number] Fat Emulsion 20% 250 ml @ 104 167 0 20.833 mls/hr IV DAILY@ 1200 [facility] Rx#:[id number] Sodium Chloride 0.9% 1, 100 70 000 ml @ 20 mls/hr IV . Q24H [facility] Rx#:[id number] TPN 825 900 450 pressure bag 33 36 18 Intake, IV Titration 1394.283 228.184 33.250 Amount Amiodarone 300 mg In 194.375 161.25 Dextrose 5% in Water 250 ml @ 0.25 MG/MIN 12.5 mls /hr IV .Q20H [facility] Rx#: [id number] Insulin Regular 100 unit 66.158 66.934 33.250 In Sodium Chloride 0.9% 100 ml @ Per Protocol IV .Q0M [facility] Rx#:[id number] Meropenem 1 gm In Sodium 100 Chloride 0.9% 100 ml @ 33 .333 mls/hr IVPB Q12H [facility] Rx#:[id number] Sodium Acetate 50 meq 1033.75 Potassium Acetate 28 meq In Amino Acids 5 %/ Dextrose 20 % 1,000 ml @ 75 mls/hr IV .BY DURATION [facility] Rx#:[id number] Output: Gastric Drainage 400 200 Drainage 10 Abdomen 10 Urine 2955 1700 1635 Other: Voiding Method Indwelling Catheter Indwelling Catheter ABP, PAP, CO, CI - Last Documented Arterial Blood Pressure 129/55 Pulmonary Artery Pressure 33/14 Cardiac Output 6.7 Cardiac Index 3.1 On examination he is restrained opens eyes and mumbles HEENT exam difficult to examine no facial asymmetry Lungs are clear to auscultation fair air entry bilaterally Heart sounds unremarkable he is in A. fib Abdomen is soft nontender. Bowel sounds are absent There is a midline scar with a wound VAC which seems to be healing. There is a ileostomy bag draining dark liquid and he has an NG tube drainage Extremity exam reveals trace edema Neurologically as mentioned about - Labs CBC & Chem 7: 08/10/20 03:15 08/10/20 03:15 Labs: Abnormal Lab Results - Last 24 Hours (Table) 08/09/20 08/09/20 08/09/20 Range/Units 13:17 13:41 15:15 RBC (4.30-5.90) m/uL Hgb (13.0-17.5) gm/dL Hct (39.0-53.0) % RDW (11.5-15.5) % Neutrophils # (1.3-7.7) k/uL Lymphocytes # (1.0-4.8) k/uL ABG pO2 80 L (83-108) mmHg ABG HCO3 27 H (21-25) mmol/L ABG Total CO2 29 H (19-24) mmol/L ABG O2 Saturation 97.6 H (94-97) % Chloride (98-107) mmol/L BUN (9-20) mg/dL Creatinine (0.66-1.25) mg/dL Glucose (74-99) mg/dL POC Glucose (mg/dL) 141 H 123 H (75-99) mg/dL 08/09/20 08/09/20 08/09/20 Range/Units 17:01 19:01 20:22 RBC (4.30-5.90) m/uL Hgb (13.0-17.5) gm/dL Hct (39.0-53.0) % RDW (11.5-15.5) % Neutrophils # (1.3-7.7) k/uL Lymphocytes # (1.0-4.8) k/uL ABG pO2 (83-108) mmHg ABG HCO3 (21-25) mmol/L ABG Total CO2 (19-24) mmol/L ABG O2 Saturation (94-97) % Chloride (98-107) mmol/L BUN (9-20) mg/dL Creatinine (0.66-1.25) mg/dL Glucose (74-99) mg/dL POC Glucose (mg/dL) 106 H 186 H 182 H (75-99) mg/dL 08/10/20 08/10/20 Range/Units 03:15 03:15 RBC 2.84 L (4.30-5.90) m/uL Hgb 8.7 L (13.0-17.5) gm/dL Hct 27.7 L (39.0-53.0) % RDW 17.8 H (11.5-15.5) % Neutrophils # 8.6 H (1.3-7.7) k/uL Lymphocytes # 0.4 L (1.0-4.8) k/uL ABG pO2 (83-108) mmHg ABG HCO3 (21-25) mmol/L ABG Total CO2 (19-24) mmol/L ABG O2 Saturation (94-97) % Chloride 112 H (98-107) mmol/L BUN 60 H (9-20) mg/dL Creatinine 1.46 H (0.66-1.25) mg/dL Glucose 129 H (74-99) mg/dL POC Glucose (mg/dL) (75-99) mg/dL Assessment and Plan Assessment: Impression 1. Acute kidney injury secondary to prerenal and ATN slowly improving renal function 2. Chronic kidney disease Baseline creatinine 1.5 secondary to nephrosclerosis. 3. On TPN 4. Status post coronary artery bypass graft 07/18/2020 5. Status post ischemic bowel requiring resection and ileostomy on 08/02/2020 6. Diabetes mellitus 7. A. fib maintain on Amiodrone drip Medications Maintain TPN currently he pulled out his central line and waiting for reinsertion Monitor labs and urine output and maintained blood pressure as required
[2020-08-10] MEDS: AMIODARONE 300 MG in DEXTROSE 5% IN WATER 250 ML IV SCH ×2 (14:38)
[2020-08-10] MEDS: 1: MVI, ADULT NO.4 WITH VIT K 10 ML, TRACE (CONC-1ML/DOSE) 1 ML, SODIUM ACETATE 50 MEQ, IV SCH ×5 (15:09)
[2020-08-10] MEDS: FAT EMULSION 20% 250 ML IV SCH (15:09)
[2020-08-10] MEDS ORDERED: HALOPERIDOL LACTATE 5 MG/ML 1 ML VIAL IVP PRN (15:26)
--- NOTE | 2020-08-10 17:02 | XR ---
EXAMINATION TYPE: XR chest 1V portable DATE OF EXAM: 08/10/2020 COMPARISON: 08/09/2020 HISTORY: Postop TECHNIQUE: FINDINGS: There is bilateral pleural effusions. There is bilateral lower lobe pulmonary infiltrates. There is no definite heart failure. There are sternal wires. There is nasogastric tube IMPRESSION: Pleural effusions and bilateral lower lobe pneumonia unchanged. There is improvement in t he pulmonary congestion compared to yesterday.
[2020-08-10] MEDS: SODIUM CHLORIDE 0.9% 1,000 ML IV SCH (19:01)
[2020-08-10] MEDS: INSULIN REGULAR 100 UNIT in SODIUM CHLORIDE 0.9% 100 ML IV SCH (19:50)
--- NOTE | 2020-08-10 20:13 | XR ---
EXAM: XR Chest, 1 View CLINICAL HISTORY: ITS.[email or web address] XR Reason: respiratory failure TECHNIQUE: Frontal view of the chest. COMPARISON: Chest radiograph on 08/03/2020 FINDINGS: Hardware: Enteric tube courses past the diaphragm and out of the field- of-view. Right-sided PICC line terminates in the region of the SVC. Lungs/pleura: Slightly increased mid and lower lung opacities. Heart/mediastinum: Stable mild enlargement of the cardiac silhouette. Median sternotomy and CABG changes. Left atrial appendage clip. Atherosclerotic calcifications of the aorta Soft tissues: Unremarkable. Bones: No acute fracture. Degenerative changes of the spine. Upper abdomen: Normal. IMPRESSION: 1. Enteric tube courses past the diaphragm and out of the [id number]. Right-sided PICC line terminates in the region of the SVC. 2. Slightly increased mid and lower lung opacities, likely representing pleural effusions with atelectasis versus pneumonia.
--- NOTE | 2020-08-10 23:48 | PN ---
PROGRESS NOTE DATE OF SERVICE: 08/10/2020 REASON FOR FOLLOWUP: Leukocytosis. INTERVAL HISTORY: The patient is currently afebrile. The patient is feeling better; slightly more awake and alert. Denies having any chest pain. Occasional cough. No nausea, vomiting, abdominal pain or any diarrhea. PHYSICAL EXAMINATION: Blood pressure 115/51 with a pulse of 98, temperature 98. He is 96% on 2 nasal cannula. General description is an elderly male lying in bed in no distress. RESPIRATORY SYSTEM: Unlabored breathing with decreased intensity of breath sounds. No wheeze. HEART: S1, S2. Regular rate and rhythm. ABDOMEN: Soft. Mildly distended. No guarding or rigidity. LABS: Hemoglobin 8.7, white count 9.8, BUN of 60, creatinine 1.46. DIAGNOSTIC IMPRESSION AND PLAN: Patient with elevated white count, multifactorial in this patient who did have an ischemic small bowel, status post resection, also with catheter positive for Staph epidermidis. Sputum with Radha. Patient is covered with Eraxis, daptomycin and meropenem. Continue while monitoring his clinical course closely. Continue with supportive care. MMODL / IJN: [id number] /
[2020-08-11] MEDS: METOPROLOL TARTRATE 5 MG/5 ML VIAL IVP SCH ×2 (00:42→06:15)
[2020-08-11] MEDS: HEPARIN SODIUM,PORCINE 5,000 UNIT/ML 1 ML VIAL SQ SCH ×4 (00:43→23:50)
[2020-08-11] MEDS: HYDROmorphone 1 MG/ML 1 ML SYRINGE IVP PRN (03:22)
[2020-08-11 05:04] LABS: Anisocytosis Slight; Basophils # (A) 0.1 k/uL (0-0.2); Basophils % (A) 1 %; Eosinophils # (A) 0.1 k/uL (0-0.7); Eosinophils % (A) 1 %; HCT 28.9 % (39.0-53.0); HGB 9.2 gm/dL (13.0-17.5); Hypochromasia Marked; Lymphocytes # (A) 0.5 k/uL (1.0-4.8); Lymphocytes % (A) 5 %; MCH 30.6 pg (25.0-35.0); MCV 95.8 fL (80.0-100.0); Macrocytosis Slight; Mean Platelet Volume 7.7; Monocytes # (A) 0.6 k/uL (0-1.0); Monocytes % (A) 6 %; Neutrophils # (A) 8.5 k/uL (1.3-7.7); Neutrophils % (A) 85 %; Platelet Count 243 k/uL (150-450); Poikilocytosis Slight; RBC 3.01 m/uL (4.30-5.90); RDW 17.3 % (11.5-15.5)
[2020-08-11 05:14] LABS: Albumin 2.4 g/dL (3.5-5.0); Calcium 9.2 mg/dL (8.4-10.2); Magnesium 1.8 mg/dL (1.6-2.3); Phosphorus 2.5 mg/dL (2.5-4.5); Total Bilirubin 1.1 mg/dL (0.2-1.3); Total Protein 5.3 g/dL (6.3-8.2)
[2020-08-11] MEDS: 1: MVI, ADULT NO.4 WITH VIT K 10 ML, TRACE (CONC-1ML/DOSE) 1 ML, SODIUM ACETATE 50 MEQ, IV SCH ×10 (05:25→18:14)
[2020-08-11] MEDS: MEROPENEM 1 GM in SODIUM CHLORIDE 0.9% 100 ML IVPB SCH ×2 (05:30→18:14)
[2020-08-11] MEDS: MAGNESIUM SULFATE-D5W PMX 1 GM in DEXTROSE/WATER 1 100ML.BAG IVPB SCH ×2 (06:15→08:39)
--- NOTE | 2020-08-11 06:51 | XR ---
EXAM: XR Chest, 1 View CLINICAL HISTORY: [email or web address].[email or web address] XR Reason: respiratory failure TECHNIQUE: Frontal view of the chest. COMPARISON: 08/10/20 FINDINGS: Persistent bilateral lung opacities and pleural effusions. Stable cardiomediastinal silhouette. Tubes and lines appear unchanged. Additional findings similar to prior. IMPRESSION: No significant interval change.
[2020-08-11] MEDS ORDERED: SODIUM PHOSPHATE 10 MMOL in SODIUM CHLORIDE 0.9% 100 ML IVPB ONE (07:00)
[2020-08-11] MEDS: IPRATROPIUM-ALBUTEROL 3 ML NEB INHALATION SCH ×4 (07:34→19:04)
[2020-08-11] MEDS: FORMOTEROL FUMARATE 20 MCG/2 ML NEBU INHALATION SCH ×2 (07:34→19:04)
[2020-08-11] MEDS: ACETYLCYSTEINE 800 MG/4 ML VIAL INHALATION SCH ×3 (07:34→19:03)
[2020-08-11] MEDS: BUDESONIDE 1 MG/2 ML NEBU INHALATION SCH ×2 (07:34→19:04)
[2020-08-11] MEDS: ASPIRIN 81 MG PO SCH (08:28)
[2020-08-11] MEDS: LEVOTHYROXINE IVP 100 MCG/5 ML VIAL IV SCH (08:30)
[2020-08-11] MEDS: PANTOPRAZOLE 40 MG/10 ML VIAL IVP SCH ×2 (08:37→21:08)
[2020-08-11] MEDS: ANIDULAFUNGIN 100 MG in SODIUM CHLORIDE 0.9% 100 ML IVPB SCH (08:46)
--- NOTE | 2020-08-11 09:12 | P.PN ---
Subjective Progress Note Date: 08/11/20 Principal diagnosis: Coronary artery disease, status post three-vessel bypass grafting 79-year-old white male patient with past medical history of hypertension, hyperlipidemia, moderate to severe COPD with the baseline FEV1 of 56% of predicted who came in on 07/18/2020 for elective two-vessel bypass grafting with PABLO to LAD, and SVG to the PDA. He was seen in the intensive care unit following surgery, patient was successfully weaned and extubated from mechanical ventilator and under 6 hours following his OR exit, is currently awake and alert, sitting in the chair, he is currently on 2 L of oxygen, his pulse ox is 98%, hemodynamically he stable, blood pressure is 106/51, PA pressures 35/11, CVP is 8, no fever or chills, IV fluids including the 0.9 normal saline at a r ate of 30 ML per hour, insulin is 4.5 units per hour, no vasoactive drips. Today's chest x-ray shows a pneumoperitoneum with lucency present underneath the right hemidiaphragm. He has left pleural and mediastinal chest tube, and there has been 500 mL of serosanguineous output from the left pleural and 350 mL from the mediastinal chest tube in the last 24 hours. Is having some mild discomfort under the right rib cage, but no acute distress, abdomen is distended but soft, he is hemodynamically stable, he is in sinus mechanism, no nausea vomiting or diarrhea. CT of the abdomen and pelvis is pending today's labs have been reviewed, showing white blood cell count of 11.9, hemoglobin of 9, sodium is 133, the rest of the electrolytes were within normal limits, B1 is 25 creatinine is 1.18 The patient is seen today 07/20/2020 in follow-up in the intensive care unit. He is currently sitting up in a chair at the bedside. Awake and alert in no acute distress. This is postoperative day #2, two-vessel coronary artery bypass surgery. He is currently on 2 L/m per nasal cannula maintaining good O2 saturation in the 90s. He did have issues with atrial fibrillation and is currently on Cardizem drip at 10 mg per hour. He did receive IV amiodarone, initiated on by mouth today. 0.9 normal saline at KVO. Chest x-ray reveals removal of mediastinal drains. Right-sided pneumoperitoneum is no longer appreciated. Left-sided chest tube remains in place. Bibasilar patchy atelectasis remains. White count 18.2. Hemoglobin 8.9. Platelet count 99,000. Sodium 127. Potassium 5.0. Creatinine 1.37. He is pulling approximately 3582-7452 ML's on the incentive spirometer. Continued on bronchodilators. Heparin for DVT prophylaxis. Patient is seen today 07/22/2020 in follow-up on the intensive care unit. He is currently sitting up in a chair at the bedside. He is having complaints of increasing shortness of breath. He is doing less on his incentive spirometer. Chest x-ray reveals small right pleural effusion with adjacent atelectasis and/or consolidation. He is currently maintaining O2 saturations in the low 90s on 3 L/m per nasal cannula. Respiratory rate 32. He is afebrile. Blood pressure stable. He did have issues with atrial fibrillation with rapid ventricular response last evening. He is on a Cardizem drip at 10 mg per hour. He will be transitioned to Eliquis. On oral amiodarone. 0.9 normal saline at 20 ML's per hour. Currently in sinus rhythm. White count 16.8. Hemoglobin 8.8. Sodium 124. Potassium 5.3. Bicarb 20. Creatinine 1.62. AST 147. ALT 130. He is still having issues with hypoactive bowel and not passing flatus or bowel movement since surgery. He remains on bronchodilators and IV Solu-Medrol. The patient is seen today 07/23/2020 in follow-up in the intensive care unit. Postoperative day #5. He is awake and alert in no acute distress. Currently sitting up in a chair at the bedside. He is feeling stronger today. Less short of breath. Maintaining O2 saturations in the 90s on 3 L/m per nasal cannula. Chest x-ray continues to show a small right pleural effusion with prominent right greater than left basilar atelectasis. He is doing better with his incentive spirometer. White count 15.2. Hemoglobin 81.1. Sodium 124. Potassium 5.3. Creatinine 1.84. AST 136. ALT 193. Albumin 3.4. No IV fluids currently. Is continued on bronchodilators, IV Solu-Medrol, anticoagulated with Eliquis. Still has not had a bowel movement. The patient is seen today 08/09/2020 in follow-up in the intensive care unit. He was extubated again yesterday 08/08/2020. He is currently on 2 L/m per nasal cannula. TPN at 75 ML's per hour. 0.9#10 ML's per hour. Amiodarone at 0.25 mg/m. Insulin drip at 7 units per hour. His x-ray reveals some evidence of fluid volume overload. He is also quite edematous. He'll receive Lasix 40 mg IVP 1 today. He'll also be placed on BiPAP 07/22 on 40% FiO2 as he remains slightly tachypneic and shallow breathing. He is quite weak and debilitated today. He remains on bronchodilators. Eraxis. Daptomycin. Being nourished with lipid and TPN. The patient is seen today 08/11/2020 in follow-up in the intensive care unit. He is currently resting fairly comfortably in bed. Maintaining O2 saturation in the 90s on 2 L/m per nasal cannula. He did wear BiPAP last night at / and 28% FiO2. He is being nourished with TPN at 75 ML's per hour. He is on insulin at 5.5 units per hour. He remains on amiodarone at 0.25 mg/m. White count 10.0. Hemoglobin 9.2. Sodium 145. Potassium 4.0. Creatinine 1.50. Glucose 120. Chest xray reveals persistent bilateral lung opacities and pleural effusions. No significant change. Remains on DuoNeb inhalations, daptomycin, meropenem. Remains slightly tachycardic. Temperature 99.2 axillary. Needs increased encouragement regarding the use of the incentive spirometer. Objective - Vital Signs Vital signs: Vital Signs Temp 99.2 F 08/11/20 08:00 Pulse 106 H 08/11/20 08:05 Resp 35 H 08/11/20 08:00 BP 130/82 08/11/20 08:00 Pulse Ox 100 08/11/20 08:00 Intake & Output 08/10/20 08/11/20 08/11/20 18:59 06:59 18:59 Intake Total 2227.886 4309.416 166.875 Output Total 4735 1895 235 Balance -3266.425 109.416 -68.125 Weight 102.7 kg 94.7 kg Intake: IV 1214 921 156 DAPTOmycin 650 mg In 100 Sodium Chloride 0.9% 50 ml @ 100 mls/hr IVPB Q48H [facility] Rx#:[id number] Fat Emulsion 20% 250 ml @ 100 63 20.833 mls/hr IV DAILY@ 1200 [facility] Rx#:[id number] Sodium Chloride 0.9% 1, 150 000 ml @ 20 mls/hr IV . Q24H [facility] Rx#:[id number] TPN 825 825 150 pressure bag 39 33 6 Intake, IV Titration 535.846 9721.416 10.875 Amount Amiodarone 300 mg In 216.042 Dextrose 5% in Water 250 ml @ 0.25 MG/MIN 12.5 mls /hr IV .Q20H [facility] Rx#: [id number] Insulin Regular 100 unit 38.533 44.416 10.875 In Sodium Chloride 0.9% 100 ml @ Per Protocol IV .Q0M [facility] Rx#:[id number] Sodium Acetate 50 meq 1039 Potassium Acetate 28 meq In Amino Acids 5 %/ Dextrose 20 % 1,000 ml @ 75 mls/hr IV .BY DURATION [facility] Rx#:[id number] Output: Gastric Drainage 300 300 Urine 4385 1395 235 Stool 50 200 Other: Voiding Method Indwelling Catheter Indwelling Catheter ABP, PAP, CO, CI - Last Documented Arterial Blood Pressure 134/76 Pulmonary Artery Pressure 33/14 Cardiac Output 6.7 Cardiac Index 3.1 - Exam GENERAL EXAM: Alert, very pleasant, 79-year-old male patient, on 2 L of oxygen, in the ICU, fairly comfortable in no apparent distress. HEAD: Normocephalic/atraumatic. EYES: Normal reaction of pupils, equal size. Conjunctiva pink, sclera white. NOSE: Clear with pink turbinates. THROAT: No erythema or exudates. NECK: No masses, no JVD, no thyroid enlargement, no adenopathy. CHEST: No chest wall deformity. Symmetrical expansion. Midsternal incision is clean dry and intact LUNGS: Equal air entry with scattered crackles in the bases. CVS: Regular rate and rhythm, normal S1 and S2, no gallops, no murmurs, no rubs ABDOMEN: Incision clean dry well approximated. Wound VAC in place. Ileostomy the right side of the abdomen EXTREMITIES: No clubbing, no edema, no cyanosis, 2+ pulses and upper and lower extremities. MUSCULOSKELETAL: Muscle strength and tone normal. SPINE: No scoliosis or deformity SKIN: No rashes CENTRAL NERVOUS SYSTEM: No focal deficits, tone is normal in all 4 extremities. PSYCHIATRIC: Alert and oriented -3. Appropriate affect. Intact judgment and insight. - Labs CBC & Chem 7: 08/11/20 04:55 08/11/20 04:55 Labs: Abnormal Lab Results - Last 24 Hours (Table) 08/11/20 08/11/20 Range/Units 04:55 04:55 RBC 3.01 L (4.30-5.90) m/uL Hgb 9.2 L (13.0-17.5) gm/dL Hct 28.9 L (39.0-53.0) % RDW 17.3 H (11.5-15.5) % Neutrophils # 8.5 H (1.3-7.7) k/uL Lymphocytes # 0.5 L (1.0-4.8) k/uL Chloride 110 H (98-107) mmol/L Carbon Dioxide 33 H (22-30) mmol/L BUN 56 H (9-20) mg/dL Creatinine 1.50 H (0.66-1.25) mg/dL Glucose 120 H (74-99) mg/dL ALT 63 H (4-49) U/L Total Protein 5.3 L (6.3-8.2) g/dL Albumin 2.4 L (3.5-5.0) g/dL Assessment and Plan Assessment: 1 Symptomatic coronary artery disease, status post two-vessel coronary artery bypass grafting with PABLO to the LAD, SVG to the PDA 2 Postoperative atrial fibrillation with rapid ventricular response requiring amiodarone and Cardizem, initiated on Eliquis 3 History of coronary artery disease with previous stent placement 4 Intraperitoneal hemorrhage status post exploratory laparotomy, washout of peritoneal cavity and ileostomy on 08/02/2020. 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 Meyers Chest x-ray and labs reviewed Continue bronchodilators, IS, and antibiotics Increase his activity as tolerated We will continue to follow and make further recommendations based on his clinical status I, the cosigning physician, performed a history & physical examination of the patient. Lungs sounds with basilar crackles. Maintaining good O2 saturations in the 90s on 2 L/m per nasal cannula. I discussed the assessment and plan of care with my nurse practitioner, Olga Marin. I attest to the above note as dictated by her.
[2020-08-11] MEDS: METOPROLOL TARTRATE 25 MG TAB PO SCH ×3 (09:41→23:11)
[2020-08-11] MEDS: CHLORHEXIDINE GLUCONATE 15 ML CUP MUCOUS MEM SCH (09:48)
--- NOTE | 2020-08-11 10:03 | P.PN ---
Subjective Progress Note Date: 08/11/20 Principal diagnosis: Symptomatic triple-vessel coronary artery disease, mild left ventricular dysfunction. Past medical history significant for hypertension, hyperlipidemia, chronic obstructive pulmonary disease with preoperative FEV1 of 53% of predicted value, coronary artery disease with previous stenting to his right coronary artery in 2002, hypothyroid status post partial thyroidectomy, previous tobacco dependence quit smoking 20 years ago, type 2 diabetes mellitus with a preoperative hemoglobin A1c of 5.2%, and chronic kidney disease stage III with a baseline creatinine of 1.4-1.5, family history of premature coronary artery disease with a brother having a CABG at less than 50 years of age. POD #24 double coronary artery bypass grafting using the left internal mammary artery to left anterior descending coronary artery, a reverse greater saphenous vein graft from the aorta to the posterior descending coronary artery. Exclusion of the left atrial appendage using a 35 mm Atriclip, endoscopic harvesting of the right greater saphenous vein, graft flow measurement using the Live Life 360stim system, intraoperative transesophageal echocardiogram and epi-aortic scanning. Postoperative acute blood loss anemia, an expected outcome from hemodilution and cardiopulmonary bypass. Postoperative paroxysmal atrial fibrillation, unexpected. Postoperative pneumoperitoneum, unexpected. Acute on chronic kidney disease secondary to acute tubular necrosis. Pneumatosis of the small bowel. POD #18 ischemic bowel, small bowel resection. Prolonged mechanical ventilation, unexpected. Acute hypoxic respiratory failure requiring reintubation, unexpected. Postoperative hypotension requiring initiation of norepinephrine drip, unexpected, resolved. Acute abdomen, intraperitoneal hemorrhage. Postoperative day #9 exploratory laparotomy, washout of peritoneal cavity, ileostomy with small bowel resection. The patient was seen in follow-up today 08/11/2020 at his bedside in the intensive care unit. The patient is currently resting in bed with his head elevated, opens his eyes easily with verbal stimuli, answering questions appropriately and is oriented 3 at this time. He is having some periods of confusion. He remains hemodynamically stable and is currently on no inotropic or pressor support. Denies any complaints of shortness of breath or pain at this time. Oxygen saturations are 95% on 2 L nasal cannula. Achieving 500 mL on his incentive spirometry with much encouragement. TPN remained infusing at 75 mL per hour per his PICC line for nutritional support. T-max temperature in the last 24 hours was 100.1F, currently he is afebrile. Lab results today show a WBC count 10.0, hemoglobin 9.2, platelets 243, BUN 56, creatinine 1.50 and magnesium 1.8. Right lower quadrant ileostomy draining liquid brown drainage, 250 mL output from ileostomy in the last 8 hours. Midline abdominal incision with wound VAC in place, dressing clean, dry and intact. Bedside telemetry showing atrial fibrillation heart rate 93 BPM. Remains on meropenem and daptomycin for antibiotic coverage managed by infectious disease. Objective - Vital Signs Vital signs: Vital Signs Temp 99.8 F H 08/11/20 04:00 Pulse 106 H 08/11/20 08:05 Resp 32 H 08/11/20 07:00 BP 143/118 08/11/20 07:00 Pulse Ox 95 08/11/20 07:39 Intake & Output 08/10/20 08/11/20 08/11/20 18:59 06:59 18:59 Intake Total 7749.305 2585.416 88.875 Output Total 4735 1895 60 Balance -3266.425 109.416 28.875 Weight 102.7 kg 94.7 kg Intake: IV 1214 921 78 DAPTOmycin 650 mg In 100 Sodium Chloride 0.9% 50 ml @ 100 mls/hr IVPB Q48H [facility] Rx#:[id number] Fat Emulsion 20% 250 ml @ 100 63 20.833 mls/hr IV DAILY@ 1200 [facility] Rx#:[id number] Sodium Chloride 0.9% 1, 150 000 ml @ 20 mls/hr IV . Q24H [facility] Rx#:[id number] TPN 825 825 75 pressure bag 39 33 3 Intake, IV Titration 284.216 9229.416 10.875 Amount Amiodarone 300 mg In 216.042 Dextrose 5% in Water 250 ml @ 0.25 MG/MIN 12.5 mls /hr IV .Q20H [facility] Rx#: [id number] Insulin Regular 100 unit 38.533 44.416 10.875 In Sodium Chloride 0.9% 100 ml @ Per Protocol IV .Q0M [facility] Rx#:[id number] Sodium Acetate 50 meq 1039 Potassium Acetate 28 meq In Amino Acids 5 %/ Dextrose 20 % 1,000 ml @ 75 mls/hr IV .BY DURATION [facility] Rx#:[id number] Output: Gastric Drainage 300 300 Urine 4385 1395 60 Stool 50 200 Other: Voiding Method Indwelling Catheter Indwelling Catheter ABP, PAP, CO, CI - Last Documented Arterial Blood Pressure 128/60 Pulmonary Artery Pressure 33/14 Cardiac Output 6.7 Cardiac Index 3.1 - Constitutional General appearance: Present: cooperative, no acute distress, obese - EENT Eyes: Present: PERRLA, normal appearance. Absent: scleral icterus ENT: Present: hearing grossly normal - Neck Details: Neck is supple, no JVD. - Respiratory Details: Lung sounds with few scattered crackles throughout, diminished to his bilateral bases. Respirations are symmetrical and nonlabored. No wheezes or rhonchi. Strong cough. Oxygen saturation is 95% on 2 L nasal cannula. Achieving 500 mL on his incentive spirometry with much encouragement. - Cardiovascular Details: Irregular rhythm and controlled rate. S1 and S2 present, negative for S3, gallop or murmur. Bedside telemetry showing atrial fibrillation heart rate 93 BPM. Sternum is stable. Anasarca. Heart hugger is in place. Knee-high ALPHONSO hose and sequential compression devices in place to his bilateral lower extremities. Right brachial PICC line in place. Left radial arterial line in place and functioning. - Gastrointestinal Gastrointestinal Comment(s): Abdomen is soft, nontender and nondistended. Hypoactive bowel sounds present in all 4 abdominal quadrants. NG tube remains in place with low intermittent wall suction, 300 mL output in the last 8 hours. Right lower quadrant abdominal ileostomy, stoma is pink, 250 mL output from the ileostomy in the last 8 hours. - Genitourinary Genitourinary Comment(s): Villafana catheter for accurate I&O. Draining clear yellow urine. 945 mL output in the last 8 hours. - Integumentary Integumentary Comment(s): Skin is warm and dry. No clubbing or cyanosis is present. Midline sternal incision is clean, dry and approximated. Dressing is clean, dry and intact. Right lower extremity EVH sites are clean, dry and approximated. No drainage or redness is present. Midline abdominal incision with wound VAC clean, dry and intact. Stage II ulcer to his coccyx. No drainage present. - Neurologic Neurologic: Present: CNII-XII intact - Musculoskeletal Musculoskeletal: Present: generalized weakness, strength equal bilaterally - Psychiatric Psychiatric Comment(s): Flat affect, currently oriented 3, but does have periods of confusion. - Allied health notes Allied health notes reviewed: nursing - Labs CBC & Chem 7: 08/11/20 04:55 08/11/20 04:55 Labs: Abnormal Lab Results - Last 24 Hours (Table) 08/11/20 08/11/20 Range/Units 04:55 04:55 RBC 3.01 L (4.30-5.90) m/uL Hgb 9.2 L (13.0-17.5) gm/dL Hct 28.9 L (39.0-53.0) % RDW 17.3 H (11.5-15.5) % Neutrophils # 8.5 H (1.3-7.7) k/uL Lymphocytes # 0.5 L (1.0-4.8) k/uL Chloride 110 H (98-107) mmol/L Carbon Dioxide 33 H (22-30) mmol/L BUN 56 H (9-20) mg/dL Creatinine 1.50 H (0.66-1.25) mg/dL Glucose 120 H (74-99) mg/dL ALT 63 H (4-49) U/L Total Protein 5.3 L (6.3-8.2) g/dL Albumin 2.4 L (3.5-5.0) g/dL - Imaging and Cardiology Chest x-ray: report reviewed, image reviewed Assessment and Plan Assessment: 1. Heavily calcified symptomatic triple-vessel coronary artery disease, status post 2 vessel coronary artery bypass grafting surgery 2. History of coronary artery disease with stent placement to his right coronary artery in 2002 3. Mild left ventricular dysfunction 4. History of hypertension 5. History of hyperlipidemia 6. Hypothyroid status post partial thyroidectomy 7. Chronic obstructive pulmonary disease with preoperative FEV1 53% of predicted value 8. Remote history of tobacco dependence quit smoking 20 years ago 9. Acute on chronic kidney disease stage III with a baseline creatinine of 1.4- 1.5 10. Diabetes mellitus type 2 with a preoperative hemoglobin A1c 5.2% 11. Postoperative acute blood loss anemia, expected 12. Postoperative paroxysmal atrial fibrillation, unexpected 13. Remote history of pneumonia 14. Postoperative paroxysmal atrial fibrillation, unexpected, status post exclusion of the left atrial appendage 15. Pneumoperitoneum, unexpected 16. Pneumatosis of the small bowel, ischemic bowel, status post resection of the small bowel 17. Positive sputum culture for pseudomonas fluorescens 18. Postoperative prolonged mechanical ventilation 19. Acute hypoxic respiratory failure requiring reintubation, unexpected 20. Postoperative hypotension requiring initiation of norepinephrine drip, unexpected 21. Acute abdomen, intraperitoneal hemorrhage, S/P exploratory laparotomy, washout of peritoneal cavity, ileostomy with small bowel resection 22. Postoperative thrombocytopenia, unexpected Plan: 1. Continue low dose aspirin and Lopressor 7.5 mg IV every 6 hours. We will increase metoprolol tartrate as tolerated, hold for systolic blood pressure less than 100 mmHg and heart rate less than 60. 2. Continue IV amiodarone drip at 0.25 mg/m for atrial fibrillation prophylaxis. 3. Wean oxygen as tolerated. Encourage use of his incentive spirometry 10 times every hour while awake. Bronchodilator management per pulmonary for/critical care medicine. 4. Continue to monitor daily labs and chest x-rays. 5. Continue GI/DVT prophylaxis. 6. Pain control with current medication regimen. 7. Insulin management per primary care service. 8. Continue TPN at 75 mL per hour. Keep the NG tube to low intermittent wall suction. 9. Nephrology following. Avoid nephrotoxic agents. Continue IV Lasix per their recommendations. Urine output excellent, 945 mL output last 8 hours. 10. Strict accurate intake and output, daily weights. 11. Continue IV meropenem, daptomycin, and Eraxis. Positive sputum culture for pseudomonas fluorescens on 07/24/2020. Sputum culture from 08/03/2020 showing Radha albicans. Blood culture results show no growth after 48 hours. Antibiotic management per Dr. Frederick's recommendations. 12. Continue Villafana catheter for accurate I's and O's. 13. Continue wound VAC to midline abdominal incision. Dressing changes Friday and Friday, managed by general surgery. 14. Continue antibiotics, managed by infectious disease. 15. Lasix 40 mg 1 today at noon. 16. More recommendations to follow based on patient's clinical course. Time with Patient: Greater than 30
--- NOTE | 2020-08-11 10:20 | PN ---
PROGRESS NOTE HISTORY: The patient has known coronary artery disease status post CABG. Has been in the hospital since 07/18/2020. He has had bypass surgery and multiple and complex postsurgical problems. This morning, he appears somewhat confused. Has an NG tube in place. Remains in atrial fibrillation with elevated heart rate. He is getting Lopressor 7.5 mg every 8 hours. If he is able to take medications through NG tube, I am going to give him Lopressor 25 mg t.i.d. and stop the IV Lopressor. He is not a candidate for anticoagulation because of concerns with bleeding. PHYSICAL EXAM: On exam, heart rate is 110 beats per minute. Blood pressure is 112/54, respiratory rate is 33, O2 saturation is 97% on 2 L. Chest exam reveals diminished air entry at the bases. I do not hear any crackles or rhonchi. Heart exam reveals first and second heart sounds, irregular rhythm and a systolic murmur at the apex. Abdomen is soft. Exam of extremities reveals mild edema. Peripheral pulses are felt. LABS: Hemoglobin of 9.2, platelet count is 243, potassium is 4, creatinine is 1.5 The patient is currently on aspirin, Lasix and Lopressor which we will continue. MMODL / IJN: [id number] /
--- NOTE | 2020-08-11 11:44 | P.PN ---
Subjective Progress Note Date: 08/11/20 Principal diagnosis: This 80-year-old male seen in consultation because of acute kidney injury, chronic kidney disease, was admitted and underwent coronary artery bypass graft complicated by ischemic bowel requiring further resection and ileostomy. Patient known with diabetes. Currently he is on nasal cannula, on TPN. He is somewhat confused is disoriented and today he is off of his restraints. He has mild edema Is also known with A. fib, on amiodarone drip, He does have a NG tube draining, ileostomy draining dark liquid. The midline incision has a wound VAC seems to be healing. Low-grade temperature 99.4 Objective - Vital Signs Vital signs: Vital Signs Temp 99.2 F 08/11/20 08:00 Pulse 86 08/11/20 11:16 Resp 25 H 08/11/20 11:00 BP 124/63 08/11/20 11:00 Pulse Ox 96 08/11/20 11:00 Intake & Output 08/10/20 08/11/20 08/11/20 18:59 06:59 18:59 Intake Total 4546.230 9936.416 637.717 Output Total 4735 1895 610 Balance -3266.425 109.416 27.717 Weight 102.7 kg 94.7 kg Intake: IV 1214 921 610 Anidulafungin 200 mg In 200 Sodium Chloride 0.9% 200 ml @ 84 mls/hr IVPB ONCE ONE Rx#:[id number] DAPTOmycin 650 mg In 100 Sodium Chloride 0.9% 50 ml @ 100 mls/hr IVPB Q48H [facility] Rx#:[id number] Fat Emulsion 20% 250 ml @ 100 63 20.833 mls/hr IV DAILY@ 1200 [facility] Rx#:[id number] Sodium Chloride 0.9% 1, 150 20 000 ml @ 20 mls/hr IV . Q24H [facility] Rx#:[id number] TPN 825 825 375 pressure bag 39 33 15 Intake, IV Titration 960.096 4306.416 27.717 Amount Amiodarone 300 mg In 216.042 Dextrose 5% in Water 250 ml @ 0.25 MG/MIN 12.5 mls /hr IV .Q20H [facility] Rx#: [id number] Insulin Regular 100 unit 38.533 44.416 27.717 In Sodium Chloride 0.9% 100 ml @ Per Protocol IV .Q0M [facility] Rx#:[id number] Sodium Acetate 50 meq 1039 Potassium Acetate 28 meq In Amino Acids 5 %/ Dextrose 20 % 1,000 ml @ 75 mls/hr IV .BY DURATION [facility] Rx#:[id number] Output: Gastric Drainage 300 300 Urine 4385 1395 610 Stool 50 200 Other: Voiding Method Indwelling Catheter Indwelling Catheter Indwelling Catheter ABP, PAP, CO, CI - Last Documented Arterial Blood Pressure 120/59 Pulmonary Artery Pressure 33/14 Cardiac Output 6.7 Cardiac Index 3.1 Examination awake alert but disoriented HEENT exam difficult to see his neck no facial asymmetry noted Lungs are clear to auscultation fair air entry bilaterally Heart sounds are unremarkable for any murmur rub gallop Abdomen is soft but bowel sounds are absent he has a ileostomy bag and a midline incision with a wound VAC Extremity exam reveals moderate edema Neurologically awake alert but - Labs CBC & Chem 7: 08/11/20 04:55 08/11/20 04:55 Labs: Abnormal Lab Results - Last 24 Hours (Table) 08/11/20 08/11/20 Range/Units 04:55 04:55 RBC 3.01 L (4.30-5.90) m/uL Hgb 9.2 L (13.0-17.5) gm/dL Hct 28.9 L (39.0-53.0) % RDW 17.3 H (11.5-15.5) % Neutrophils # 8.5 H (1.3-7.7) k/uL Lymphocytes # 0.5 L (1.0-4.8) k/uL Chloride 110 H (98-107) mmol/L Carbon Dioxide 33 H (22-30) mmol/L BUN 56 H (9-20) mg/dL Creatinine 1.50 H (0.66-1.25) mg/dL Glucose 120 H (74-99) mg/dL ALT 63 H (4-49) U/L Total Protein 5.3 L (6.3-8.2) g/dL Albumin 2.4 L (3.5-5.0) g/dL Assessment and Plan Assessment: Impression 1. Acute kidney injury secondary to prerenal and ATN slowly improving renal function, creatinine is stable at 1.46 and 1.5 this morning. This is stable over the last 3 days but improved from before, his peak creatinine was 2.61 on 08/04/2020 2. Chronic kidney disease Baseline creatinine 1.5 secondary to nephrosclerosis. 3. On TPN 4. Status post coronary artery bypass graft 07/18/2020 5. Status post ischemic bowel requiring resection and ileostomy on 08/02/2020 6. Diabetes mellitus 7. A. fib maintain on Amiodrone drip. 8. Mild edema Recommendations 1. Agree with diuresis because of the edema. Watch his electrolytes and labs and renal function. Currently on 40 mg IV Lasix daily started yesterday 08/10/2020 2. Maintain TPN currently he pulled out his central line and waiting for reinsertion 3. Monitor labs and urine output and maintained blood pressure as required
[2020-08-11] MEDS ORDERED: FUROSEMIDE 10 MG/ML 4 ML VIAL IV SCH (12:00)
[2020-08-11] MEDS: FAT EMULSION 20% 250 ML IV SCH (12:29)
--- NOTE | 2020-08-11 14:19 | P.PN ---
Subjective Progress Note Date: 08/11/20 Patient is AAO 1. Patient has upward in his ostomy bag. No acute issues overnight. Objective - Vital Signs Vital signs: Vital Signs Temp 99.2 F 08/11/20 08:00 Pulse 96 08/11/20 13:00 Resp 32 H 08/11/20 13:00 BP 138/104 08/11/20 13:00 Pulse Ox 91 L 08/11/20 13:00 Intake & Output 08/10/20 08/11/20 08/11/20 18:59 06:59 18:59 Intake Total 0238.779 6033.416 725.717 Output Total 4735 1895 710 Balance -3266.425 109.416 15.717 Weight 102.7 kg 94.7 kg Intake: IV 1214 921 698 Anidulafungin 200 mg In 200 Sodium Chloride 0.9% 200 ml @ 84 mls/hr IVPB ONCE ONE Rx#:[id number] DAPTOmycin 650 mg In 100 Sodium Chloride 0.9% 50 ml @ 100 mls/hr IVPB Q48H [facility] Rx#:[id number] Fat Emulsion 20% 250 ml @ 100 63 20.833 mls/hr IV DAILY@ 1200 [facility] Rx#:[id number] Sodium Chloride 0.9% 1, 150 30 000 ml @ 20 mls/hr IV . Q24H [facility] Rx#:[id number] TPN 825 825 450 pressure bag 39 33 18 Intake, IV Titration 129.589 5224.416 27.717 Amount Amiodarone 300 mg In 216.042 Dextrose 5% in Water 250 ml @ 0.25 MG/MIN 12.5 mls /hr IV .Q20H [facility] Rx#: [id number] Insulin Regular 100 unit 38.533 44.416 27.717 In Sodium Chloride 0.9% 100 ml @ Per Protocol IV .Q0M [facility] Rx#:[id number] Sodium Acetate 50 meq 1039 Potassium Acetate 28 meq In Amino Acids 5 %/ Dextrose 20 % 1,000 ml @ 75 mls/hr IV .BY DURATION [facility] Rx#:[id number] Output: Gastric Drainage 300 300 Urine 4385 1395 710 Stool 50 200 Other: Voiding Method Indwelling Catheter Indwelling Catheter Indwelling Catheter ABP, PAP, CO, CI - Last Documented Arterial Blood Pressure 122/47 Pulmonary Artery Pressure 33/14 Cardiac Output 6.7 Cardiac Index 3.1 - Exam General examination - Alert and Oriented 1 in [id number] respiratory distress, appears chronically debilitated Heart - + S1S2 no murmurs Lungs - diminished breath sounds bilaterally, tachypneic Abdomen soft NT ND +ve BS Extremities - diffuse generalized edema [employer] - Moving all 4 extremities spontaneously Psych - moderately confused - Labs CBC & Chem 7: 08/11/20 04:55 08/11/20 04:55 Labs: Abnormal Lab Results - Last 24 Hours (Table) 08/11/20 08/11/20 Range/Units 04:55 04:55 RBC 3.01 L (4.30-5.90) m/uL Hgb 9.2 L (13.0-17.5) gm/dL Hct 28.9 L (39.0-53.0) % RDW 17.3 H (11.5-15.5) % Neutrophils # 8.5 H (1.3-7.7) k/uL Lymphocytes # 0.5 L (1.0-4.8) k/uL Chloride 110 H (98-107) mmol/L Carbon Dioxide 33 H (22-30) mmol/L BUN 56 H (9-20) mg/dL Creatinine 1.50 H (0.66-1.25) mg/dL Glucose 120 H (74-99) mg/dL ALT 63 H (4-49) U/L Total Protein 5.3 L (6.3-8.2) g/dL Albumin 2.4 L (3.5-5.0) g/dL Assessment and Plan Assessment: 1. CAD s/p CABG with 2v bypass, PABLO to LAD, and SVG to posterior decending coronary artery 2. Paroxysmal Atrial Fibrillation, with RVR 3. 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 Pneumatosis, Ischemic Bowel, s/p small bowel resection 5. Acute Blood Loss Anemia, post-operative, resolved 6. Pneumoperitoneum secondary to chest tubes, Resolved 7. CONNOR superimposed on CKD, stage III, Resolved 8. Hypertension, essential 9. Hyperlipidemia 10. Type II DM, uncontrolled 11. Hypothyroidism 12. Obesity, BMI 30.5 13. Hyponatremia and Hyperkalemia 80 year old man with history of COPD, CKD III, HTN/HLD/CAD/DM, Obesity presented for symptomatic CAD and underwent 2v CABG with post-operative course complicated by respiratory failure secondary to COPD exacerbation, blood loss anemia, paroxysmal atrial fibrillation with RVR, and metabolic derangements. DM 2 - hold metformin - Inulin subcutaneous with sliding scale insulin coverage, check blood sugars every before meals and at bedtime, Levemir added on 07/21. - Blood sugars currently controlled, follow blood sugars closely - A1C from 06/21/2020 5.2, anticipate discharge home back on metformin which may be able to come off in the near future in the outpatient setting. Small Bowel Ischemia - surgery consult - s/p resection/anastamosis, s/p anastamosis take down and diverting ileostomy - on daptomycin/meropenem/eraxis - MRSA nares negative -Patient currently on TPN as per surgery recommendations. A-fib with RVR On metoprolol 2.5 IV q6h Off cardizem gtt Patient on amiodarone drip Eliquis held due to bleeding, now on heparin q8h for DVT PPx CONNOR on CKD stage III Baseline cr 1.4-1.5 Likely cardiorenal syndrome, patient received contrast earlier in the admission. Nephro on board Resolved Acute hyponatremia Likely sec to renal failure Resolved Hyperkalemia Resolved Pneumoperitoneum suspect secondary to mediastinal chest tubes -Tube d/melody -Resolved. Constipation On Senokot, MiraLAX Had a bowel movement today Acute blood loss anemia and thrombocytopenia, anticipated outcome of surgery - follow CBC - transfuse as indicated COPD with acute exacerbation - Pulm managing steroids - DuoNebs - on spiriva and advair at home -patient high risk for reintubation Coronary artery disease -Status post coronary artery bypass grafting -Cardiothoracic and cardiology following HTN - meds per cardiology - follow BP Hypothyroidism status post partial thyroidectomy - synthroid Morbid obesity with BMI 30.5 -Outpatient structured weight loss Chronic: HUALAPAI Jacobs's Prognosis is guarded due to multiple active medication conditions.
--- NOTE | 2020-08-11 14:54 | P.PN ---
Subjective Progress Note Date: 08/11/20 CHIEF COMPLAINT: Ischemic bowel HISTORY OF PRESENT ILLNESS: The patient is a 80-year-old male status post small bowel resection for ischemic bowel, 07/24/2020 and re-exploration 08/02/2020 due to intra-abdominal hemorrhage. He is extubated. He has an NG tube. He reports moderate thirst. He had new output out from his ileostomy that is bilious. He is still having bilious output from his NG tube. ROS: On full ventilatory support. PHYSICAL EXAM: VITAL SIGNS: Reviewed CONSTITUTIONAL: Well developed and in no acute distress. EYES: Conjuctivae without sclera icterus. Extraocular movements grossly intact. HEAD, EARS, NOSE, THROAT: Moist buccal mucosa. Head is atraumatic, normocephalic. RESPIRATORY: Non-labored respirations and equal bilateral excursions. CARDIOVASCULAR: 2+ radial pulses. ABDOMEN: Wound VAC intact. Soft. No peritonitis. MUSCULOSKELETAL: No clubbing. No cyanosis. SKIN: Good skin turgor. NEUROLOGIC: No focal or lateralizing signs. PSYCH: Follows commands CLINICAL LABS: White blood cell count down from 30.8 down to 10.0. Hemoglobin up from 8.7 to 9.2. Creatinine improved from 2.61 to 1.5 ASSESSMENT: 1. Ischemic colitis 2. Acute blood loss anemia 3. Intra-abdominal hermorrhage 4. Expected ileus PLAN: 1. May start ice chips popsicles. 2. Do not start tube feeds due to persistent ileus. 3. Will place on prokinetic for ileus such as Entereg Objective - Vital Signs Vital signs: Vital Signs Temp 99.2 F 08/11/20 08:00 Pulse 96 08/11/20 13:00 Resp 32 H 08/11/20 13:00 BP 138/104 08/11/20 13:00 Pulse Ox 91 L 08/11/20 13:00 Intake & Output 08/10/20 08/11/20 08/11/20 18:59 06:59 18:59 Intake Total 5647.070 1854.416 725.717 Output Total 4735 1895 710 Balance -3266.425 109.416 15.717 Weight 102.7 kg 94.7 kg 94.7 kg Intake: IV 1214 921 698 Anidulafungin 200 mg In 200 Sodium Chloride 0.9% 200 ml @ 84 mls/hr IVPB ONCE ONE Rx#:[id number] DAPTOmycin 650 mg In 100 Sodium Chloride 0.9% 50 ml @ 100 mls/hr IVPB Q48H [facility] Rx#:[id number] Fat Emulsion 20% 250 ml @ 100 63 20.833 mls/hr IV DAILY@ 1200 [facility] Rx#:[id number] Sodium Chloride 0.9% 1, 150 30 000 ml @ 20 mls/hr IV . Q24H [facility] Rx#:[id number] TPN 825 825 450 pressure bag 39 33 18 Intake, IV Titration 813.416 5333.416 27.717 Amount Amiodarone 300 mg In 216.042 Dextrose 5% in Water 250 ml @ 0.25 MG/MIN 12.5 mls /hr IV .Q20H [facility] Rx#: [id number] Insulin Regular 100 unit 38.533 44.416 27.717 In Sodium Chloride 0.9% 100 ml @ Per Protocol IV .Q0M [facility] Rx#:[id number] Sodium Acetate 50 meq 1039 Potassium Acetate 28 meq In Amino Acids 5 %/ Dextrose 20 % 1,000 ml @ 75 mls/hr IV .BY [facility] Rx#:[id number] Output: Gastric Drainage 300 300 Urine 4385 1395 710 Stool 50 200 Other: Voiding Method Indwelling Catheter Indwelling Catheter Indwelling Catheter ABP, PAP, CO, CI - Last Documented Arterial Blood Pressure 122/47 Pulmonary Artery Pressure 33/14 Cardiac Output 6.7 Cardiac Index 3.1 - Labs CBC & Chem 7: 08/11/20 04:55 08/11/20 04:55 Labs: Abnormal Lab Results - Last 24 Hours (Table) 08/11/20 08/11/20 Range/Units 04:55 04:55 RBC 3.01 L (4.30-5.90) m/uL Hgb 9.2 L (13.0-17.5) gm/dL Hct 28.9 L (39.0-53.0) % RDW 17.3 H (11.5-15.5) % Neutrophils # 8.5 H (1.3-7.7) k/uL Lymphocytes # 0.5 L (1.0-4.8) k/uL Chloride 110 H (98-107) mmol/L Carbon Dioxide 33 H (22-30) mmol/L BUN 56 H (9-20) mg/dL Creatinine 1.50 H (0.66-1.25) mg/dL Glucose 120 H (74-99) mg/dL ALT 63 H (4-49) U/L Total Protein 5.3 L (6.3-8.2) g/dL Albumin 2.4 L (3.5-5.0) g/dL Assessment and Plan (1) Intra abdominal hemorrhage Current Visit: Yes Status: Acute Code(s): R58 - HEMORRHAGE, NOT ELSEWHERE CLASSIFIED SNOMED Code(s): 263281777 (2) Ischemic colitis, enteritis, or enterocolitis Current Visit: Yes Status: Acute Code(s): K55.9 - VASCULAR DISORDER OF INTESTINE, UNSPECIFIED SNOMED Code(s): 19929579 (3) Ileus following gastrointestinal surgery Current Visit: Yes Status: Acute Code(s): K91.89 - OTH POSTPROCEDURAL COMPLICATIONS AND DISORDERS OF DGSTV SYS; K56.7 - ILEUS, UNSPECIFIED SNOMED Code(s): 370583694
[2020-08-11] MEDS: ALVIMOPAN 12 MG CAPSULE PO SCH ×2 (15:31→21:08)
[2020-08-11] MEDS: AMIODARONE 300 MG in DEXTROSE 5% IN WATER 250 ML IV SCH ×2 (16:53)
[2020-08-11] MEDS: INSULIN REGULAR 100 UNIT in SODIUM CHLORIDE 0.9% 100 ML IV SCH (20:40)
[2020-08-11] MEDS: SODIUM CHLORIDE 0.9% 1,000 ML IV SCH (20:42)
[2020-08-11] MEDS: AMIODARONE 200 MG TAB PO SCH (21:08)
--- NOTE | 2020-08-11 21:54 | PN ---
PROGRESS NOTE DATE OF SERVICE: 08/11/2020 REASON FOR FOLLOWUP: Leukocytosis, ischemic bowel and possible line-related noted. The patient is currently afebrile. He did have a low-grade fever of 100.9 around midnight. The patient has been slightly anxious, though denies having any chest pain. Occasional cough. No abdominal pain. EXAMINATION: Blood pressure 105/68 with a pulse of 102, temperature 98. He is 98% on 3 L nasal cannula. General description is an elderly male lying in bed in no distress. Respiratory system: Unlabored breathing, decreased breath sounds in the base, with no wheeze. Heart S1, S2. Regular rate and rhythm. ABDOMEN: Soft, no tenderness. LABS: Hemoglobin 9.1, white count 10.0. BUN of 56, creatinine 1.50. Sputum with Radha albicans. DIAGNOSTIC IMPRESSION AND PLAN: Patient with elevated white count which is likely multifactorial in this patient who did have an ischemic small bowel status post resection and ileostomy also with a catheter culture positive for Staph epi. Patient is currently on Rocephin antibiotics in the form of meropenem, daptomycin and Eraxis to continue while monitoring clinical course closely. Continue supportive care. MMODL / IJN: [id number] /
[2020-08-12] MEDS: MEROPENEM 1 GM in SODIUM CHLORIDE 0.9% 100 ML IVPB SCH ×2 (04:16→16:39)
[2020-08-12 04:38] LABS: Anisocytosis Slight; Basophils % (A) 0 %; Eosinophils # (A) 0.1 k/uL (0-0.7); Eosinophils % (A) 1 %; HCT 32.4 % (39.0-53.0); HGB 9.8 gm/dL (13.0-17.5); Hypochromasia Marked; Lymphocytes # (A) 0.7 k/uL (1.0-4.8); Lymphocytes % (A) 6 %; MCH 29.3 pg (25.0-35.0); MCHC 30.2 g/dL (31.0-37.0); MCV 97.3 fL (80.0-100.0); Macrocytosis Slight; Mean Platelet Volume 8.7; Monocytes # (A) 0.6 k/uL (0-1.0); Monocytes % (A) 5 %; Neutrophils # (A) 9.2 k/uL (1.3-7.7); Neutrophils % (A) 85 %; Platelet Count 296 k/uL (150-450); Poikilocytosis Slight; RBC 3.33 m/uL (4.30-5.90); RDW 17.1 % (11.5-15.5); WBC 10.8 k/uL (3.8-10.6)
[2020-08-12 05:06] LABS: Albumin 2.5 g/dL (3.5-5.0); Calcium 9.1 mg/dL (8.4-10.2); Magnesium 2.1 mg/dL (1.6-2.3); Potassium 4.1 mmol/L (3.5-5.1); Total Bilirubin 1.1 mg/dL (0.2-1.3); Total Protein 5.3 g/dL (6.3-8.2)
--- NOTE | 2020-08-12 06:38 | XR ---
EXAM: XR Chest, 1 View CLINICAL HISTORY: ITS.REASON XR Reason: respiratory failure TECHNIQUE: Frontal view of the chest. COMPARISON: Chest x-ray dated 07/21/20, 08/03/20, 08/10/20 and 08/11/20 FINDINGS: Lungs: Bilateral pulmonary opacities and pleural effusions. Possible slight increase in the left-sided pleural effusions. There is ance again a paucity of lung markings seen within the left lung apex, question due to significant blebs/emphysematous changes. No obvious pleural edge to suggest pneumothorax however consider repeat imaging. Pleural space: See above. Heart: Unremarkable. No cardiomegaly. Mediastinum: Unremarkable. Bones/joints: Sternotomy wires. Tubes, lines and devices: Gastric tube tip below the edge of the study. Right-sided PICC line with the tip in the SVC. IMPRESSION: Bilateral pulmonary opacities and pleural effusions. Possible slight increase in the left-sided pleural effusions. There is ance again a paucity of lung markings seen within the left lung apex, question due to significant blebs/emphysematous changes. No obvious pleural edge to suggest pneumothorax however consider repeat imaging. <MYCVCSECTION> Communications: 08/12/20 06:42 Call Doctor Regarding Above results, called Nurse Jj Snow on 08/12 06:42 (-05:00)
[2020-08-12] MEDS: BUDESONIDE 1 MG/2 ML NEBU INHALATION SCH ×2 (07:24→21:37)
[2020-08-12] MEDS: IPRATROPIUM-ALBUTEROL 3 ML NEB INHALATION SCH ×4 (07:24→21:26)
[2020-08-12] MEDS: ACETYLCYSTEINE 800 MG/4 ML VIAL INHALATION SCH ×3 (07:24→21:37)
[2020-08-12] MEDS: FORMOTEROL FUMARATE 20 MCG/2 ML NEBU INHALATION SCH ×2 (07:25→21:37)
[2020-08-12] MEDS ORDERED: FUROSEMIDE 10 MG/ML 4 ML VIAL IV STA (08:40)
[2020-08-12] MEDS: AMIODARONE 200 MG TAB PO SCH ×2 (09:16→20:38)
[2020-08-12] MEDS: METOPROLOL TARTRATE 25 MG TAB PO SCH ×3 (09:16→21:20)
--- NOTE | 2020-08-12 09:56 | P.PN ---
Subjective Progress Note Date: 08/12/20 Principal diagnosis: Symptomatic triple-vessel coronary artery disease, mild left ventricular dysfunction. Past medical history significant for hypertension, hyperlipidemia, chronic obstructive pulmonary disease with preoperative FEV1 of 53% of predicted value, coronary artery disease with previous stenting to his right coronary artery in 2002, hypothyroid status post partial thyroidectomy, previous tobacco dependence quit smoking 20 years ago, type 2 diabetes mellitus with a preoperative hemoglobin A1c of 5.2%, and chronic kidney disease stage III with a baseline creatinine of 1.4-1.5, family history of premature coronary artery disease with a brother having a CABG at less than 50 years of age. POD #24 double coronary artery bypass grafting using the left internal mammary artery to left anterior descending coronary artery, a reverse greater saphenous vein graft from the aorta to the posterior descending coronary artery. Exclusion of the left atrial appendage using a 35 mm Atriclip, endoscopic harvesting of the right greater saphenous vein, graft flow measurement using the spotdockstim system, intraoperative transesophageal echocardiogram and epi-aortic scanning. Postoperative acute blood loss anemia, an expected outcome from hemodilution and cardiopulmonary bypass. Postoperative paroxysmal atrial fibrillation, unexpected. Postoperative pneumoperitoneum, unexpected. Acute on chronic kidney disease secondary to acute tubular necrosis. Pneumatosis of the small bowel. POD #18 ischemic bowel, small bowel resection. Prolonged mechanical ventilation, unexpected. Acute hypoxic respiratory failure requiring reintubation, unexpected. Postoperative hypotension requiring initiation of norepinephrine drip, unexpected, resolved. Acute abdomen, intraperitoneal hemorrhage. Postoperative day #9 exploratory laparotomy, washout of peritoneal cavity, ileostomy with small bowel resection. The patient was seen in follow-up today 08/12/2020 at his bedside in the intensive care unit. The patient is currently resting in bed with his head elevated, opens his eyes easily with verbal stimuli, answering questions appropriately and is oriented 3 at this time. He is having some periods of confusion. Currently denies any complaints of pain or shortness of breath. He remains hemodynamically stable and is currently on no inotropic or pressor support. Bedside telemetry showing normal sinus rhythm heart rate 93, although his bedside nurse from last night states that he has been going in and out of atrial fibrillation and normal sinus rhythm. NG tube remains in place to low intermittent wall suction. 150 mL of bilious drainage in the last 8 hours. Right lower quadrant abdominal ileostomy with pink stoma drained 550 mL of thin light brown drainage in the last 8 hours. Oxygen saturation are 97% on 2 L nasal cannula and he is achieving 250-500 mL on his incentive spirometry with encouragement. T-Max temperature in the last 24 hours 99.2F. Laboratory results this morning show a WBC count 10.8, hemoglobin 9.8, platelets 296, BUN 58, creatinine 1.44. TPN remains infusing per his right arm PICC line at 75 mL per hour for nutritional support. Wound VAC dressing remains in place to his midline abdominal incision, dressing is clean, dry and intact. He remains on meropenem and daptomycin for antibiotic coverage managed by infectious disease. Objective - Vital Signs Vital signs: Vital Signs Temp 97.6 F 08/12/20 03:00 Pulse 95 08/12/20 08:00 Resp 36 H 08/12/20 08:00 BP 150/79 08/12/20 08:00 Pulse Ox 99 08/12/20 08:00 Intake & Output 08/11/20 08/12/20 08/12/20 18:59 06:59 18:59 Intake Total 4710.070 0622.283 168.467 Output Total 2345 3175 175 Balance -848.816 -2100.717 -6.533 Weight 94.7 kg 93.5 kg Intake: IV 1206 1030 156 Anidulafungin 200 mg In 200 Sodium Chloride 0.9% 200 ml @ 84 mls/hr IVPB ONCE ONE Rx#:[id number] Fat Emulsion 20% 250 ml @ 84 20.833 mls/hr IV DAILY@ 1200 [facility] Rx#:[id number] Sodium Chloride 0.9% 1, 70 10 000 ml @ 20 mls/hr IV . Q24H [facility] Rx#:[id number] TPN 900 900 150 pressure bag 36 36 6 Intake, IV Titration 290.184 44.283 12.467 Amount Amiodarone 300 mg In 250 Dextrose 5% in Water 250 ml @ 0.25 MG/MIN 12.5 mls /hr IV .Q20H [facility] Rx#: [id number] Insulin Regular 100 unit 40.184 44.283 12.467 In Sodium Chloride 0.9% 100 ml @ Per Protocol IV .Q0M [facility] Rx#:[id number] Output: Gastric Drainage 550 Drainage 600 Abdomen 600 Urine 2345 1325 175 Stool 700 Other: Voiding Method Indwelling Catheter Indwelling Catheter ABP, PAP, CO, CI - Last Documented Arterial Blood Pressure 150/59 Pulmonary Artery Pressure 33/14 Cardiac Output 6.7 Cardiac Index 3.1 - Constitutional General appearance: Present: cooperative, no acute distress, obese - EENT Eyes: Present: normal appearance. Absent: scleral icterus ENT: Present: hearing grossly normal - Neck Details: Neck is supple, no JVD. - Respiratory Details: Lung sounds essentially clear to his bilateral upper lobes, diminished to his bilateral bases. No wheezes, rhonchi or crackles. Strong loose nonproductive cough. Respirations are symmetrical and nonlabored. Oxygen saturation is 97% on 2 L nasal cannula. Achieving 250-500 mL with much encouragement on his incentive spirometry. - Cardiovascular Details: Regular rhythm and rate. S1 and S2 present, negative for S3, gallop or murmur. Sternum is stable. Heart hugger in place. Bedside telemetry showing normal sinus rhythm heart rate 93 BPM. Generalized anasarca. Knee-high ALPHONSO hose and sequential compression devices in place to his bilateral lower extremities. Left radial arterial line in place and functioning. Right brachial PICC line in place and functioning. - Gastrointestinal Gastrointestinal Comment(s): Abdomen is soft, nontender and nondistended. Hypoactive bowel sounds present in all 4 abdominal quadrants. No guarding or rigidity. Right lower quadrant ile ostomy with 550 mL of light thin brown drainage in the last 8 hours. NG tube in place to low intermittent wall suction, 150 mL output of bilious drainage in the last 8 hours. TPN infusing at 75 mL per hour per his right PICC line for nutritional support. - Genitourinary Genitourinary Comment(s): Villafana catheter for accurate I&O. 750 mL of urine output in the last 8 hours. - Integumentary Integumentary Comment(s): Skin is warm and dry. No clubbing or cyanosis is present. Midline sternal incision is clean, dry and approximated. Dressing is clean, dry and intact. Right lower extremity EVH sites are clean, dry and approximated. No drainage or redness is present. Midline abdominal incision with wound VAC clean, dry and intact. Stage II ulcer to his coccyx. No drainage present. - Neurologic Neurologic: Present: CNII-XII intact - Musculoskeletal Musculoskeletal: Present: generalized weakness, strength equal bilaterally - Psychiatric Psychiatric: Present: A&O x's 3 - Allied health notes Allied health notes reviewed: nursing - Labs CBC & Chem 7: 08/12/20 04:25 08/12/20 04:25 Labs: Abnormal Lab Results - Last 24 Hours (Table) 08/12/20 08/12/20 Range/Units 04:25 04:25 WBC 10.8 H (3.8-10.6) k/uL RBC 3.33 L (4.30-5.90) m/uL Hgb 9.8 L (13.0-17.5) gm/dL Hct 32.4 L (39.0-53.0) % MCHC 30.2 L (31.0-37.0) g/dL RDW 17.1 H (11.5-15.5) % Neutrophils # 9.2 H (1.3-7.7) k/uL Lymphocytes # 0.7 L (1.0-4.8) k/uL Carbon Dioxide 34 H (22-30) mmol/L BUN 58 H (9-20) mg/dL Creatinine 1.44 H (0.66-1.25) mg/dL Glucose 152 H (74-99) mg/dL ALT 62 H (4-49) U/L Total Protein 5.3 L (6.3-8.2) g/dL Albumin 2.5 L (3.5-5.0) g/dL - Imaging and Cardiology Chest x-ray: report reviewed, image reviewed Assessment and Plan Assessment: 1. Heavily calcified symptomatic triple-vessel coronary artery disease, status post 2 vessel coronary artery bypass grafting surgery 2. History of coronary artery disease with stent placement to his right coronary artery in 2002 3. Mild left ventricular dysfunction 4. History of hypertension 5. History of hyperlipidemia 6. Hypothyroid status post partial thyroidectomy 7. Chronic obstructive pulmonary disease with preoperative FEV1 53% of predicted value 8. Remote history of tobacco dependence quit smoking 20 years ago 9. Acute on chronic kidney disease stage III with a baseline creatinine of 1.4- 1.5 10. Diabetes mellitus type 2 with a preoperative hemoglobin A1c 5.2% 11. Postoperative acute blood loss anemia, expected 12. Postoperative paroxysmal atrial fibrillation, unexpected 13. Remote history of pneumonia 14. Postoperative paroxysmal atrial fibrillation, unexpected, status post exclusion of the left atrial appendage 15. Pneumoperitoneum, unexpected 16. Pneumatosis of the small bowel, ischemic bowel, status post resection of the small bowel 17. Positive sputum culture for pseudomonas fluorescens 18. Postoperative prolonged mechanical ventilation 19. Acute hypoxic respiratory failure requiring reintubation, unexpected 20. Postoperative hypotension requiring initiation of norepinephrine drip, unexpected 21. Acute abdomen, intraperitoneal hemorrhage, S/P exploratory laparotomy, washout of peritoneal cavity, ileostomy with small bowel resection 22. Postoperative thrombocytopenia, unexpected Plan: 1. Continue low dose aspirin, metoprolol tartrate 25 mg per NG tube 3 times. We will increase metoprolol tartrate as tolerated, hold for systolic blood pressure less than 100 mmHg and heart rate less than 60. 2. Continue amiodarone 200 mg per NG tube twice a day for atrial fibrillation prophylaxis. 3. Wean oxygen as tolerated. Encourage use of his incentive spirometry 10 times every hour while awake. Bronchodilator management per pulmonary for/critical care medicine. 4. Continue to monitor daily labs and chest x-rays. 5. Continue GI/DVT prophylaxis. 6. Pain control with current medication regimen. 7. Insulin management per primary care service. 8. Continue TPN at 75 mL per hour. Keep the NG tube to low intermittent wall suction. General surgery started the patient on popsicles and ice chips as tolerated. We will consult speech pathology for swallowing evaluation. Start tube feedings per NG tube when okay with general surgery. Ileostomy had 550 mL output in the last 8 hours. 9. Nephrology following. Avoid nephrotoxic agents. Urine output excellent, 750 mL output last 8 hours. 10. Strict accurate intake and output, daily weights. 11. Continue IV meropenem, daptomycin, and Eraxis. Positive sputum culture for pseudomonas fluorescens on 07/24/2020. Sputum culture from 08/03/2020 showing Radha albicans. Blood culture results show no growth after 48 hours. Antibiotic management per Dr. Frederick's recommendations. 12. Continue Villafana catheter for accurate I's and O's. 13. Continue wound VAC to midline abdominal incision. Dressing changes Friday and Friday, managed by general surgery. 14. We will obtain a computed tomography scan of his chest without contrast rule out left apical pneumothorax. 15. Lasix 40 mg 1 now. 16. More recommendations to follow based on patient's clinical course. Time with Patient: Greater than 30
--- NOTE | 2020-08-12 09:58 | P.PN ---
Subjective Patient is seen in follow-up for acute kidney injury on chronic kidney disease. Renal function stable. Off Levophed. He is now on oral amiodarone drip for A. fib with RVR. Extubated August 08. Currently on nasal cannula. Receiving TPN. Nonoliguric. He received a dose of IV Lasix this morning. Vital signs are stable. HEENT: On NC. NG tube noted. LUNGS: Breath sounds decreased. HEART: Regular rate and rhythm. ABDOMEN: No gross distention noted. EXTREMITITES: 1+ edema. Objective - Vital Signs Vital signs: Vital Signs Temp 97.6 F 08/12/20 03:00 Pulse 95 08/12/20 08:00 Resp 36 H 08/12/20 08:00 BP 150/79 08/12/20 08:00 Pulse Ox 99 08/12/20 08:00 Intake & Output 08/11/20 08/12/20 08/12/20 18:59 06:59 18:59 Intake Total 9213.058 8667.283 168.467 Output Total 2345 3175 175 Balance -848.816 -2100.717 -6.533 Weight 94.7 kg 93.5 kg Intake: IV 1206 1030 156 Anidulafungin 200 mg In 200 Sodium Chloride 0.9% 200 ml @ 84 mls/hr IVPB ONCE ONE Rx#:[id number] Fat Emulsion 20% 250 ml @ 84 20.833 mls/hr IV DAILY@ 1200 [facility] Rx#:[id number] Sodium Chloride 0.9% 1, 70 10 000 ml @ 20 mls/hr IV . Q24H [facility] Rx#:[id number] TPN 900 900 150 pressure bag 36 36 6 Intake, IV Titration 290.184 44.283 12.467 Amount Amiodarone 300 mg In 250 Dextrose 5% in Water 250 ml @ 0.25 MG/MIN 12.5 mls /hr IV .Q20H [facility] Rx#: [id number] Insulin Regular 100 unit 40.184 44.283 12.467 In Sodium Chloride 0.9% 100 ml @ Per Protocol IV .Q0M [facility] Rx#:[id number] Output: Gastric Drainage 550 Drainage 600 Abdomen 600 Urine 2345 1325 175 Stool 700 Other: Voiding Method Indwelling Catheter Indwelling Catheter ABP, PAP, CO, CI - Last Documented Arterial Blood Pressure 150/59 Pulmonary Artery Pressure 33/14 Cardiac Output 6.7 Cardiac Index 3.1 - Labs CBC & Chem 7: 08/12/20 04:25 08/12/20 04:25 Labs: Abnormal Lab Results - Last 24 Hours (Table) 08/12/20 08/12/20 Range/Units 04:25 04:25 WBC 10.8 H (3.8-10.6) k/uL RBC 3.33 L (4.30-5.90) m/uL Hgb 9.8 L (13.0-17.5) gm/dL Hct 32.4 L (39.0-53.0) % MCHC 30.2 L (31.0-37.0) g/dL RDW 17.1 H (11.5-15.5) % Neutrophils # 9.2 H (1.3-7.7) k/uL Lymphocytes # 0.7 L (1.0-4.8) k/uL Carbon Dioxide 34 H (22-30) mmol/L BUN 58 H (9-20) mg/dL Creatinine 1.44 H (0.66-1.25) mg/dL Glucose 152 H (74-99) mg/dL ALT 62 H (4-49) U/L Total Protein 5.3 L (6.3-8.2) g/dL Albumin 2.5 L (3.5-5.0) g/dL Assessment and Plan Plan: Assessment: 1. Acute kidney injury secondary to hemodynamic ATN. No hydronephrosis noted on computed tomography scan. No proteinuria on UA. Nonoliguric. Renal function improved. Creatinine stable at 1.44 today. 2. Chronic kidney disease stage III with baseline creatinine in the range of 1.2-1.5 secondary to nephrosclerosis. UA from June 2020 was benign. 3. Coronary artery disease status post 2 vessel CABG on July 18. 4. Hypervolemic hyponatremia. Improved with diuresis. 5. Bowel ischemia status post exploratory laparotomy and resection. Underwent another exploratory laparotomy on August 02 with ileostomy. 6. Diabetes mellitus. 7. Volume overload. Improved with diuresis. 8. Hypokalemia secondary to diuresis. Status post placement. 9. A. fib maintained on oral amiodarone and Lopressor. 10. Anemia of chronic kidney disease and post-cabg. Status post blood transfusion this admission. Hemoglobin stable. Plan: Maintain TPN per surgical recommendations. Avoid nephrotoxins. Continue to monitor renal function and urine output. Status post IV Lasix this morning. Going for a CAT scan of the chest today.
--- NOTE | 2020-08-12 10:08 | CT ---
EXAMINATION TYPE: CT chest wo con DATE OF EXAM: 08/12/2020 COMPARISON: 07/28/2020 HISTORY: 80-year-old male abnormal radiograph, r/o left pneumothorax TECHNIQUE: Contiguous axial scanning of the chest without IV contrast. Coronal and sagittal reconstru ctions performed. CT DLP: 758.2 mGycm Automated exposure control for dose reduction was used. FINDINGS: Median sternotomy wires. NG tube is in place. Heart upper limits of normal in size. A small pericardial effusion measuring 1.1 cm shows some decrea sed from 07/28/2020. Ectatic upper descending thoracic aorta at 3.1 cm. There is some reticular soft tissue densities in the substernal aspect of the anterior mediastinum, p ossible scarring or edematous change. Bulky left lobe of the thyroid gland is unchanged. No thoracic lymphadenopathy by CT size criteria. There moderate bilateral pleural effusions. Prominent volume loss and consolidation involving the ent deshaun bilateral lower lobes. Prominent breathing motion. Moderate to advanced upper lung emphysema. No convincing pneumothorax. 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 Ga llstones measuring up to 1.8 cm. Bones: DISH within the mid and lower thoracic spine. IMPRESSION: 1. MODERATE BILATERAL PLEURAL EFFUSIONS WITH ATELECTATIC COLLAPSE OF THE ENTIRE BILATERAL LOWER LOBES . 2. SUPERIMPOSED UNDERLYING INFILTRATE WOULD BE DIFFICULT TO EXCLUDE AND WOULD NEED TO BE CORRELATED C LINICALLY. 3. COPD WITH MODERATE TO ADVANCED UPPER LUNG EMPHYSEMA. NO CONVINCING PNEUMOTHORAX. 4. SMALL PERICARDIAL EFFUSION MEASURING 1.1 CM THICK, DECREASED FROM 07/28/2020. 5. 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 6. CHOLELITHIASIS.
--- NOTE | 2020-08-12 10:28 | P.PN ---
Subjective Progress Note Date: 08/12/20 Patient remains AAO 1. Per nurse patient has been in and out of A. fib with RVR. He is currently on oral amiodarone. Per surgery okay to start ice chips. He still on TPN. Surgery also started Entereg. Patient's chest x-ray this morning showed worsening effusions and possible pneumothorax. He had a computed tomography scan of his chest that ruled out pneumothorax. Patient has been started on IV Lasix. Objective - Vital Signs Vital signs: Vital Signs Temp 97.6 F 08/12/20 03:00 Pulse 95 08/12/20 08:00 Resp 36 H 08/12/20 08:00 BP 150/79 08/12/20 08:00 Pulse Ox 99 08/12/20 08:00 Intake & Output 08/11/20 08/12/20 08/12/20 18:59 06:59 18:59 Intake Total 3467.823 7178.283 354.467 Output Total 2345 3175 650 Balance -848.816 -2100.717 -295.533 Weight 94.7 kg 93.5 kg Intake: IV 1206 1030 342 Anidulafungin 200 mg In 200 Sodium Chloride 0.9% 200 ml @ 84 mls/hr IVPB ONCE ONE Rx#:[id number] Fat Emulsion 20% 250 ml @ 84 20.833 mls/hr IV DAILY@ 1200 [facility] Rx#:[id number] Sodium Chloride 0.9% 1, 70 10 30 000 ml @ 20 mls/hr IV . Q24H [facility] Rx#:[id number] TPN 900 900 300 pressure bag 36 36 12 Intake, IV Titration 290.184 44.283 12.467 Amount Amiodarone 300 mg In 250 Dextrose 5% in Water 250 ml @ 0.25 MG/MIN 12.5 mls /hr IV .Q20H [facility] Rx#: [id number] Insulin Regular 100 unit 40.184 44.283 12.467 In Sodium Chloride 0.9% 100 ml @ Per Protocol IV .Q0M [facility] Rx#:[id number] Output: Gastric Drainage 550 Drainage 600 Abdomen 600 Urine 2345 1325 650 Stool 700 Other: Voiding Method Indwelling Catheter Indwelling Catheter ABP, PAP, CO, CI - Last Documented Arterial Blood Pressure 150/59 Pulmonary Artery Pressure 33/14 Cardiac Output 6.7 Cardiac Index 3.1 - Exam General examination - Alert and Oriented 1 in [id number] respiratory distress, appears chronically debilitated Heart - + S1S2 no murmurs Lungs - diminished breath sounds bilaterally, tachypneic Abdomen soft NT ND +ve BS Extremities - diffuse generalized edema [employer] - Moving all 4 extremities spontaneously Psych - moderately confused - Labs CBC & Chem 7: 08/12/20 04:25 08/12/20 04:25 Labs: Abnormal Lab Results - Last 24 Hours (Table) 08/12/20 08/12/20 Range/Units 04:25 04:25 WBC 10.8 H (3.8-10.6) k/uL RBC 3.33 L (4.30-5.90) m/uL Hgb 9.8 L (13.0-17.5) gm/dL Hct 32.4 L (39.0-53.0) % MCHC 30.2 L (31.0-37.0) g/dL RDW 17.1 H (11.5-15.5) % Neutrophils # 9.2 H (1.3-7.7) k/uL Lymphocytes # 0.7 L (1.0-4.8) k/uL Carbon Dioxide 34 H (22-30) mmol/L BUN 58 H (9-20) mg/dL Creatinine 1.44 H (0.66-1.25) mg/dL Glucose 152 H (74-99) mg/dL ALT 62 H (4-49) U/L Total Protein 5.3 L (6.3-8.2) g/dL Albumin 2.5 L (3.5-5.0) g/dL Assessment and Plan Assessment: 1. CAD s/p CABG with 2v bypass, PABLO to LAD, and SVG to posterior decending coronary artery 2. Paroxysmal Atrial Fibrillation, with RVR 3. 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 Pneumatosis, Ischemic Bowel, s/p small bowel resection 5. Acute Blood Loss Anemia, post-operative, resolved 6. Pneumoperitoneum secondary to chest tubes, Resolved 7. CONNOR superimposed on CKD, stage III, Resolved 8. Hypertension, essential 9. Hyperlipidemia 10. Type II DM, uncontrolled 11. Hypothyroidism 12. Obesity, BMI 30.5 13. Hyponatremia and Hyperkalemia 14. Pulmonary edema 80 year old man with history of COPD, CKD III, HTN/HLD/CAD/DM, Obesity presented for symptomatic CAD and underwent 2v CABG with post-operative course complicated by respiratory failure secondary to COPD exacerbation, blood loss anemia, paroxysmal atrial fibrillation with RVR, and metabolic derangements. DM 2 - hold metformin - Inulin subcutaneous with sliding scale insulin coverage, check blood sugars every before meals and at bedtime, Levemir added on 07/21. - Blood sugars currently controlled, follow blood sugars closely - A1C from 06/21/2020 5.2, anticipate discharge home back on metformin which may be able to come off in the near future in the outpatient setting. Small Bowel Ischemia - surgery consult - s/p resection/anastamosis, s/p anastamosis take down and diverting ileostomy - on daptomycin/meropenem/eraxis -> infectious disease managing antibiotics - MRSA nares negative -Patient currently on TPN as per surgery recommendations. Per surgery okay to start ice chips. Patient also started on prokinetic, Enereg. A-fib with RVR On metoprolol 2.5 IV q6h Off cardizem gtt Patient on amiodarone drip -> transitioned to amiodarone 200 mg twice a day Eliquis held due to bleeding, now on heparin q8h for DVT PPx Pulmonary edema -IV Lasix as needed -Managed by credit analyst and nephrology CONNOR on CKD stage III Baseline cr 1.4-1.5 Likely ATN Nephro on board Creatinine stable Acute hyponatremia Likely sec to renal failure Resolved Hyperkalemia Resolved Pneumoperitoneum suspect secondary to mediastinal chest tubes -Tube d/melody -Resolved. Constipation On Senokot, MiraLAX Had a bowel movement today Acute blood loss anemia and thrombocytopenia, anticipated outcome of surgery - follow CBC - transfuse as indicated COPD with acute exacerbation - Pulm managing steroids - DuoNebs - on spiriva and advair at home -patient high risk for reintubation Coronary artery disease -Status post coronary artery bypass grafting -Cardiothoracic and cardiology following HTN - meds per cardiology - follow BP Hypothyroidism status post partial thyroidectomy - synthroid Morbid obesity with BMI 30.5 -Outpatient structured weight loss Chronic: [place] Jcaobs's Prognosis is guarded due to multiple active medication conditions.
[2020-08-12] MEDS: PANTOPRAZOLE 40 MG/10 ML VIAL IVP SCH ×2 (10:33→20:38)
[2020-08-12] MEDS: ANIDULAFUNGIN 100 MG in SODIUM CHLORIDE 0.9% 100 ML IVPB SCH (10:33)
[2020-08-12] MEDS: ASPIRIN 81 MG PO SCH (10:33)
[2020-08-12] MEDS: ALVIMOPAN 12 MG CAPSULE PO SCH ×2 (10:33→20:38)
[2020-08-12] MEDS: LEVOTHYROXINE IVP 100 MCG/5 ML VIAL IV SCH (10:33)
[2020-08-12] MEDS: HEPARIN SODIUM,PORCINE 5,000 UNIT/ML 1 ML VIAL SQ SCH ×3 (10:34→23:04)
--- NOTE | 2020-08-12 11:15 | P.PN ---
Subjective Progress Note Date: 08/12/20 Principal diagnosis: Coronary artery disease, status post three-vessel bypass grafting 79-year-old white male patient with past medical history of hypertension, hyperlipidemia, moderate to severe COPD with the baseline FEV1 of 56% of predicted who came in on 07/18/2020 for elective two-vessel bypass grafting with PABLO to LAD, and SVG to the PDA. He was seen in the intensive care unit following surgery, patient was successfully weaned and extubated from mechanical ventilator and under 6 hours following his OR exit, is currently awake and alert, sitting in the chair, he is currently on 2 L of oxygen, his pulse ox is 98%, hemodynamically he stable, blood pressure is 106/51, PA pressures 35/11, CVP is 8, no fever or chills, IV fluids including the 0.9 normal saline at a r ate of 30 ML per hour, insulin is 4.5 units per hour, no vasoactive drips. Today's chest x-ray shows a pneumoperitoneum with lucency present underneath the right hemidiaphragm. He has left pleural and mediastinal chest tube, and there has been 500 mL of serosanguineous output from the left pleural and 350 mL from the mediastinal chest tube in the last 24 hours. Is having some mild discomfort under the right rib cage, but no acute distress, abdomen is distended but soft, he is hemodynamically stable, he is in sinus mechanism, no nausea vomiting or diarrhea. CT of the abdomen and pelvis is pending today's labs have been reviewed, showing white blood cell count of 11.9, hemoglobin of 9, sodium is 133, the rest of the electrolytes were within normal limits, B1 is 25 creatinine is 1.18 The patient is seen today 07/20/2020 in follow-up in the intensive care unit. He is currently sitting up in a chair at the bedside. Awake and alert in no acute distress. This is postoperative day #2, two-vessel coronary artery bypass surgery. He is currently on 2 L/m per nasal cannula maintaining good O2 saturation in the 90s. He did have issues with atrial fibrillation and is currently on Cardizem drip at 10 mg per hour. He did receive IV amiodarone, initiated on by mouth today. 0.9 normal saline at KVO. Chest x-ray reveals removal of mediastinal drains. Right-sided pneumoperitoneum is no longer appreciated. Left-sided chest tube remains in place. Bibasilar patchy atelectasis remains. White count 18.2. Hemoglobin 8.9. Platelet count 99,000. Sodium 127. Potassium 5.0. Creatinine 1.37. He is pulling approximately 9958-2735 ML's on the incentive spirometer. Continued on bronchodilators. Heparin for DVT prophylaxis. Patient is seen today 07/22/2020 in follow-up on the intensive care unit. He is currently sitting up in a chair at the bedside. He is having complaints of increasing shortness of breath. He is doing less on his incentive spirometer. Chest x-ray reveals small right pleural effusion with adjacent atelectasis and/or consolidation. He is currently maintaining O2 saturations in the low 90s on 3 L/m per nasal cannula. Respiratory rate 32. He is afebrile. Blood pressure stable. He did have issues with atrial fibrillation with rapid ventricular response last evening. He is on a Cardizem drip at 10 mg per hour. He will be transitioned to Eliquis. On oral amiodarone. 0.9 normal saline at 20 ML's per hour. Currently in sinus rhythm. White count 16.8. Hemoglobin 8.8. Sodium 124. Potassium 5.3. Bicarb 20. Creatinine 1.62. AST 147. ALT 130. He is still having issues with hypoactive bowel and not passing flatus or bowel movement since surgery. He remains on bronchodilators and IV Solu-Medrol. The patient is seen today 07/23/2020 in follow-up in the intensive care unit. Postoperative day #5. He is awake and alert in no acute distress. Currently sitting up in a chair at the bedside. He is feeling stronger today. Less short of breath. Maintaining O2 saturations in the 90s on 3 L/m per nasal cannula. Chest x-ray continues to show a small right pleural effusion with prominent right greater than left basilar atelectasis. He is doing better with his incentive spirometer. White count 15.2. Hemoglobin 81.1. Sodium 124. Potassium 5.3. Creatinine 1.84. AST 136. ALT 193. Albumin 3.4. No IV fluids currently. Is continued on bronchodilators, IV Solu-Medrol, anticoagulated with Eliquis. Still has not had a bowel movement. The patient is seen today 08/09/2020 in follow-up in the intensive care unit. He was extubated again yesterday 08/08/2020. He is currently on 2 L/m per nasal cannula. TPN at 75 ML's per hour. 0.9#10 ML's per hour. Amiodarone at 0.25 mg/m. Insulin drip at 7 units per hour. His x-ray reveals some evidence of fluid volume overload. He is also quite edematous. He'll receive Lasix 40 mg IVP 1 today. He'll also be placed on BiPAP 07/22 on 40% FiO2 as he remains slightly tachypneic and shallow breathing. He is quite weak and debilitated today. He remains on bronchodilators. Eraxis. Daptomycin. Being nourished with lipid and TPN. The patient is seen today 08/11/2020 in follow-up in the intensive care unit. He is currently resting fairly comfortably in bed. Maintaining O2 saturation in the 90s on 2 L/m per nasal cannula. He did wear BiPAP last night at 12/5 and 28% FiO2. He is being nourished with TPN at 75 ML's per hour. He is on insulin at 5.5 units per hour. He remains on amiodarone at 0.25 mg/m. White count 10.0. Hemoglobin 9.2. Sodium 145. Potassium 4.0. Creatinine 1.50. Glucose 120. Chest xray reveals persistent bilateral lung opacities and pleural effusions. No significant change. Remains on DuoNeb inhalations, daptomycin, meropenem. Remains slightly tachycardic. Temperature 99.2 axillary. Needs increased encouragement regarding the use of the incentive spirometer. The patient is seen today 08/12/2020 in follow-up in the intensive care unit. He is awake and alert in no acute distress. He is maintaining O2 saturation in the 90s on 2 L/m per nasal cannula. He has TPN at 75 ML's per hour. 0.9 normal sitting at 10 MLS per hour. Insulin drip at 4 units per hour. Chest x-ray showed a questionable left apical pneumothorax. Computed tomography scan of the chest revealed advanced upper lung emphysema but no convincing pneumothorax. There is moderate bilateral pleural effusions with atelectatic collapse of the entire bilateral lower lobes. Small pericardial effusion. He continues to breathe quite shallow with tachypnea. He remains quite weak and debilitated. Currently afebrile. Hemodynamically stable. White count 10.8. Hemoglobin 9.8. Sodium 143. Potassium 4.1. Creatinine 1.44. Glucose 152. AST 49. ALT 62. Albumin 2.5. He remains on daptomycin, Eraxis, bronchodilators. Objective - Vital Signs Vital signs: Vital Signs Temp 97.6 F 08/12/20 03:00 Pulse 100 08/12/20 10:00 Resp 37 H 08/12/20 10:00 BP 150/79 08/12/20 08:00 Pulse Ox 96 08/12/20 10:00 Intake & Output 08/11/20 08/12/20 08/12/20 18:59 06:59 18:59 Intake Total 7268.952 1426.283 361.117 Output Total 2345 3175 650 Balance -848.816 -2100.717 -288.883 Weight 94.7 kg 93.5 kg Intake: IV 1206 1030 342 Anidulafungin 200 mg In 200 Sodium Chloride 0.9% 200 ml @ 84 mls/hr IVPB ONCE ONE Rx#:[id number] Fat Emulsion 20% 250 ml @ 84 20.833 mls/hr IV DAILY@ 1200 [facility] Rx#:[id number] Sodium Chloride 0.9% 1, 70 10 30 000 ml @ 20 mls/hr IV . Q24H [facility] Rx#:[id number] TPN 900 900 300 pressure bag 36 36 12 Intake, IV Titration 290.184 44.283 19.117 Amount Amiodarone 300 mg In 250 Dextrose 5% in Water 250 ml @ 0.25 MG/MIN 12.5 mls /hr IV .Q20H [facility] Rx#: [id number] Insulin Regular 100 unit 40.184 44.283 19.117 In Sodium Chloride 0.9% 100 ml @ Per Protocol IV .Q0M [facility] Rx#:[id number] Output: Gastric Drainage 550 Drainage 600 Abdomen 600 Urine 2345 1325 650 Stool 700 Other: Voiding Method Indwelling Catheter Indwelling Catheter ABP, PAP, CO, CI - Last Documented Arterial Blood Pressure 136/62 Pulmonary Artery Pressure 33/14 Cardiac Output 6.7 Cardiac Index 3.1 - Exam GENERAL EXAM: Alert, very pleasant, 79-year-old male patient, on 2 L of oxygen, in the ICU, fairly comfortable in no apparent distress. HEAD: Normocephalic/atraumatic. EYES: Normal reaction of pupils, equal size. Conjunctiva pink, sclera white. NOSE: Clear with pink turbinates. THROAT: No erythema or exudates. NECK: No masses, no JVD, no thyroid enlargement, no adenopathy. CHEST: No chest wall deformity. Symmetrical expansion. Midsternal incision is clean dry and intact LUNGS: Equal air entry with scattered crackles in the bases. CVS: Regular rate and rhythm, normal S1 and S2, no gallops, no murmurs, no rubs ABDOMEN: Incision clean dry well approximated. Wound VAC in place. Ileostomy the right side of the abdomen EXTREMITIES: No clubbing, no edema, no cyanosis, 2+ pulses and upper and lower extremities. MUSCULOSKELETAL: Muscle strength and tone normal. SPINE: No scoliosis or deformity SKIN: No rashes CENTRAL NERVOUS SYSTEM: No focal deficits, tone is normal in all 4 extremities. PSYCHIATRIC: Alert and oriented -3. Appropriate affect. Intact judgment and insight. - Labs CBC & Chem 7: 08/12/20 04:25 08/12/20 04:25 Labs: Abnormal Lab Results - Last 24 Hours (Table) 08/12/20 08/12/20 Range/Units 04:25 04:25 WBC 10.8 H (3.8-10.6) k/uL RBC 3.33 L (4.30-5.90) m/uL Hgb 9.8 L (13.0-17.5) gm/dL Hct 32.4 L (39.0-53.0) % MCHC 30.2 L (31.0-37.0) g/dL RDW 17.1 H (11.5-15.5) % Neutrophils # 9.2 H (1.3-7.7) k/uL Lymphocytes # 0.7 L (1.0-4.8) k/uL Carbon Dioxide 34 H (22-30) mmol/L BUN 58 H (9-20) mg/dL Creatinine 1.44 H (0.66-1.25) mg/dL Glucose 152 H (74-99) mg/dL ALT 62 H (4-49) U/L Total Protein 5.3 L (6.3-8.2) g/dL Albumin 2.5 L (3.5-5.0) g/dL Assessment and Plan Assessment: 1 Symptomatic coronary artery disease, status post two-vessel coronary artery bypass grafting with PABLO to the LAD, SVG to the PDA 2 Postoperative atrial fibrillation with rapid ventricular response requiring amiodarone and Cardizem, currently on subcutaneous heparin 3 History of coronary artery disease with previous stent placement 4 Intraperitoneal hemorrhage status post exploratory laparotomy, washout of peritoneal cavity and ileostomy on 08/02/2020. 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 Meyers Chest x-ray and labs reviewed Computed tomography scan of the chest revealed no evidence of pneumothorax Continue the current treatment plan Increase his activity as tolerated We will continue to follow and make further recommendations based on his clinical status I, the cosigning physician, performed a history & physical examination of the patient. Lungs sounds with basilar crackles. Maintaining good O2 saturations in the 90s on 2 L/m per nasal cannula. I discussed the assessment and plan of care with my nurse practitioner, Olga Marin. I attest to the above note as dictated by her. Time with Patient: Greater than 30
[2020-08-12] MEDS: FAT EMULSION 20% 250 ML IV SCH (12:28)
--- NOTE | 2020-08-12 13:30 | PN ---
PROGRESS NOTE Francisco is a 80-year-old gentleman with history of coronary artery disease status post CABG. Has been in the hospital since 07/18/2020. He has had multiple and complex postsurgical problems. This morning, he still remains confused in atrial fibrillation with poorly controlled ventricular rate. The patient is on amiodarone and metoprolol. He has not received either of those medications this morning. He is not a candidate for anticoagulation because of bleeding concerns. PHYSICAL EXAMINATION: On exam heart rate is around 130 beats per minute, blood pressure is 150/62, respiratory rate is 30. Chest exam reveals diminished air entry at the bases. Heart exam reveals first and second heart sounds, irregular rhythm. Examination of the extremities reveals mild edema. Peripheral pulses are palpable. LABORATORY DATA: Lab show that the hemoglobin is 9.8, platelet count is 296, potassium is 4.1 creatinine is 1.4. ASSESSMENT: Coronary artery disease, status post coronary artery bypass graft. PLAN: Continue current measures. Prognosis is guarded. MMODL / IJN: [id number] /
--- NOTE | 2020-08-12 13:48 | P.PN ---
Subjective Progress Note Date: 08/12/20 CHIEF COMPLAINT: Ischemic bowel HISTORY OF PRESENT ILLNESS: The patient is a 80-year-old male status post small bowel resection for ischemic bowel, 07/24/2020 and re-exploration 08/02/2020 due to intra-abdominal hemorrhage. His ileostomy started working yesterday. He still has moderate nasogastric tube drainage over 600 mL bilious. Patient has a complicated postoperative course. Per discussion with nursing, he had a CT of the chest to evaluate for pneumothorax. ROS: No new cardiac event. No nausea and vomiting. NG tube present. PHYSICAL EXAM: VITAL SIGNS: Reviewed CONSTITUTIONAL: Well developed and in no acute distress. EYES: Conjuctivae without sclera icterus. Extraocular movements grossly intact. HEAD, EARS, NOSE, THROAT: Moist buccal mucosa. Head is atraumatic, normocephalic. NG tube present. NG tube output bilious drainage. RESPIRATORY: Non-labored respirations and equal bilateral excursions. CARDIOVASCULAR: 2+ radial pulses. ABDOMEN: Wound VAC intact. Soft. Ileostomy with bilious drainage. MUSCULOSKELETAL: No clubbing. No cyanosis. SKIN: Good skin turgor. NEUROLOGIC: No focal or lateralizing signs. PSYCH: Follows commands CLINICAL LABS: White blood cell count elevated from 10-10.8. Hemoglobin of 9.2 9.8. Creatinine down to 1.5-1.44. ASSESSMENT: 1. Ischemic colitis 2. Acute blood loss anemia 3. Intra-abdominal hermorrhage 4. Expected ileus PLAN: 1. Continue ice chips and popsicles. 2. In the interim, he still has moderate NG outputs also bilious. Ideally output should be less than 200 mL in 24 hour period. 3. Will start tube feeds pending NG tube output less than 200 mL in a 24-hour period 4. Patient is high risk for recurrent ileus from premature tube feeds Objective - Vital Signs Vital signs: Vital Signs Temp 97.6 F 08/12/20 03:00 Pulse 93 08/12/20 13:00 Resp 35 H 08/12/20 13:00 BP 150/79 08/12/20 08:00 Pulse Ox 96 08/12/20 13:00 Intake & Output 08/11/20 08/12/20 08/12/20 18:59 06:59 18:59 Intake Total 6201.205 2056.283 685.117 Output Total 2345 3175 1675 Balance -848.816 -2100.717 -989.883 Weight 94.7 kg 93.5 kg Intake: IV 1206 1030 666 Anidulafungin 200 mg In 200 Sodium Chloride 0.9% 200 ml @ 84 mls/hr IVPB ONCE ONE Rx#:[id number] DAPTOmycin 650 mg In 50 Sodium Chloride 0.9% 50 ml @ 100 mls/hr IVPB Q48H [facility] Rx#:[id number] Fat Emulsion 20% 250 ml @ 84 20 20.833 mls/hr IV DAILY@ 1200 [facility] Rx#:[id number] Sodium Chloride 0.9% 1, 70 10 50 000 ml @ 20 mls/hr IV . Q24H [facility] Rx#:[id number] TPN 900 900 525 pressure bag 36 36 21 Intake, IV Titration 290.184 44.283 19.117 Amount Amiodarone 300 mg In 250 Dextrose 5% in Water 250 ml @ 0.25 MG/MIN 12.5 mls /hr IV .Q20H [facility] Rx#: [id number] Insulin Regular 100 unit 40.184 44.283 19.117 In Sodium Chloride 0.9% 100 ml @ Per Protocol IV .Q0M [facility] Rx#:[id number] Output: Gastric Drainage 550 Drainage 600 Abdomen 600 Urine 2345 1325 1675 Stool 700 Other: Voiding Method Indwelling Catheter Indwelling Catheter Indwelling Catheter ABP, PAP, CO, CI - Last Documented Arterial Blood Pressure 136/46 Pulmonary Artery Pressure 33/14 Cardiac Output 6.7 Cardiac Index 3.1 - Labs CBC & Chem 7: 08/12/20 04:25 08/12/20 04:25 Labs: Abnormal Lab Results - Last 24 Hours (Table) 08/12/20 08/12/20 Range/Units 04:25 04:25 WBC 10.8 H (3.8-10.6) k/uL RBC 3.33 L (4.30-5.90) m/uL Hgb 9.8 L (13.0-17.5) gm/dL Hct 32.4 L (39.0-53.0) % MCHC 30.2 L (31.0-37.0) g/dL RDW 17.1 H (11.5-15.5) % Neutrophils # 9.2 H (1.3-7.7) k/uL Lymphocytes # 0.7 L (1.0-4.8) k/uL Carbon Dioxide 34 H (22-30) mmol/L BUN 58 H (9-20) mg/dL Creatinine 1.44 H (0.66-1.25) mg/dL Glucose 152 H (74-99) mg/dL ALT 62 H (4-49) U/L Total Protein 5.3 L (6.3-8.2) g/dL Albumin 2.5 L (3.5-5.0) g/dL Assessment and Plan (1) Intra abdominal hemorrhage Current Visit: Yes Status: Acute Code(s): R58 - HEMORRHAGE, NOT ELSEWHERE CLASSIFIED SNOMED Code(s): 480857494 (2) Ischemic colitis, enteritis, or enterocolitis Current Visit: Yes Status: Acute Code(s): K55.9 - VASCULAR DISORDER OF INTESTINE, UNSPECIFIED SNOMED Code(s): 63628953 (3) Ileus following gastrointestinal surgery Current Visit: Yes Status: Acute Code(s): K91.89 - OTH POSTPROCEDURAL COMPLICATIONS AND DISORDERS OF DGSTV SYS; K56.7 - ILEUS, UNSPECIFIED SNOMED Code(s): 197029214
[2020-08-12] MEDS: SODIUM CHLORIDE 0.9% 1,000 ML IV SCH (17:06)
--- NOTE | 2020-08-12 17:42 | PN ---
PROGRESS NOTE DATE OF SERVICE: 08/12/2020 REASON FOR FOLLOWUP: Ischemic small bowel and possible line infection. INTERVAL HISTORY: The patient is currently afebrile. Patient is breathing comfortably. Denies having any chest pain or cough. Not a good historian. No vomiting or diarrhea has been reported. PHYSICAL EXAMINATION: Blood pressure 108/96, pulse of 105, temperature 98. He is 95% on 2 L nasal cannula. General description is an elderly male lying in bed in no distress. Respiratory system: Unlabored breathing, decreased breath sounds in the base, with no wheeze. Heart S1, S2. Regular rate and rhythm. Abdomen soft, no tenderness. LABS: Hemoglobin white count 8.8, BUN of 15, creatinine 1.44. DIAGNOSTIC IMPRESSION AND PLAN: Patient with leukocytosis, multifactorial in this patient who did have ischemic small bowel, status post resection, also with a component of mild infection with catheter possible Staph epidermidis. The patient is currently covered with Eraxis and daptomycin and has received adequate gram-negative coverage. Ertapenem will not be renewed. Continue supportive care. MMODL / IJN: [id number] /
[2020-08-13] MEDS: INSULIN REGULAR 100 UNIT in SODIUM CHLORIDE 0.9% 100 ML IV SCH ×2 (00:06→20:48)
[2020-08-13] MEDS: MEROPENEM 1 GM in SODIUM CHLORIDE 0.9% 100 ML IVPB SCH (05:12)
[2020-08-13 05:15] LABS: Anisocytosis Slight; Basophils # (A) 0.2 k/uL (0-0.2); Basophils % (A) 1 %; Eosinophils # (A) 0.1 k/uL (0-0.7); Eosinophils % (A) 1 %; HCT 31.8 % (39.0-53.0); Hypochromasia Marked; Lymphocytes # (A) 0.6 k/uL (1.0-4.8); Lymphocytes % (A) 5 %; MCH 30.6 pg (25.0-35.0); MCHC 31.4 g/dL (31.0-37.0); MCV 97.5 fL (80.0-100.0); Macrocytosis Slight; Mean Platelet Volume 7.8; Monocytes # (A) 0.7 k/uL (0-1.0); Monocytes % (A) 6 %; Neutrophils # (A) 9.9 k/uL (1.3-7.7); Neutrophils % (A) 85 %; Platelet Count 306 k/uL (150-450); Poikilocytosis Slight; RBC 3.26 m/uL (4.30-5.90); RDW 16.8 % (11.5-15.5); WBC 11.7 k/uL (3.8-10.6)
[2020-08-13 05:32] LABS: Calcium 9.2 mg/dL (8.4-10.2); Magnesium 1.9 mg/dL (1.6-2.3); Phosphorus 3.6 mg/dL (2.5-4.5); Potassium 4.2 mmol/L (3.5-5.1)
[2020-08-13] MEDS: MAGNESIUM SULFATE-D5W PMX 1 GM in DEXTROSE/WATER 1 100ML.BAG IVPB SCH ×2 (07:35→08:39)
[2020-08-13] MEDS: ANIDULAFUNGIN 100 MG in SODIUM CHLORIDE 0.9% 100 ML IVPB SCH (07:36)
[2020-08-13] MEDS: LEVOTHYROXINE IVP 100 MCG/5 ML VIAL IV SCH (07:36)
[2020-08-13] MEDS: ALVIMOPAN 12 MG CAPSULE PO SCH ×2 (07:36→20:38)
[2020-08-13] MEDS: HEPARIN SODIUM,PORCINE 5,000 UNIT/ML 1 ML VIAL SQ SCH ×2 (07:36→15:24)
[2020-08-13] MEDS: AMIODARONE 200 MG TAB PO SCH ×2 (07:36→20:37)
[2020-08-13] MEDS: ASPIRIN 81 MG PO SCH (07:36)
[2020-08-13] MEDS: METOPROLOL TARTRATE 25 MG TAB PO SCH ×3 (07:37→20:37)
[2020-08-13] MEDS: PANTOPRAZOLE 40 MG/10 ML VIAL IVP SCH ×2 (07:37→20:37)
[2020-08-13] MEDS: IPRATROPIUM-ALBUTEROL 3 ML NEB INHALATION SCH ×4 (07:42→20:32)
[2020-08-13] MEDS: FORMOTEROL FUMARATE 20 MCG/2 ML NEBU INHALATION SCH ×2 (07:43→20:31)
[2020-08-13] MEDS: BUDESONIDE 1 MG/2 ML NEBU INHALATION SCH ×2 (07:43→20:31)
[2020-08-13] MEDS: ACETYLCYSTEINE 800 MG/4 ML VIAL INHALATION SCH ×3 (07:43→20:32)
--- NOTE | 2020-08-13 07:51 | XR ---
EXAMINATION TYPE: XR chest 1V portable DATE OF EXAM: 08/13/2020 Comparison: 08/12/2020 Clinical History: 80-year-old male Postoperative CABG Findings: NG tube courses down beyond the edge of the radiograph. Median sternotomy wires and post-CABG clips i n the mediastinum. Heart borderline in size. Upper lung lucencies and hyperinflation compatible with underlying emphysema. There are small to moderate bilateral effusions with basilar opacities, not sig nificantly changed. Right PICC tip at the mid SVC level. Impression: COPD and continued [id number] effusions with adjacent atelectasis and/or consolidation.
[2020-08-13] MEDS ORDERED: HYDROmorphone 0.5 MG/0.5 ML SYRINGE IVP PRN (08:01)
--- NOTE | 2020-08-13 09:05 | P.PN ---
Subjective Progress Note Date: 08/13/20 CHIEF COMPLAINT: Ischemic bowel HISTORY OF PRESENT ILLNESS: The patient is a 80-year-old male status post small bowel resection for ischemic bowel, 07/24/2020 and re-exploration 08/02/2020 due to intra-abdominal hemorrhage. He is tolerating popsicles and ice chips. "I am hungry, I want to eat!" Output from NGT moderate of 750 in 18 hrs. Output from ileostomy of 100-mL in same time frame per discussion with nursing. He reports being cold. No abdominal pain. ROS: No new cardiac event. Has productive cough. PHYSICAL EXAM: VITAL SIGNS: Reviewed CONSTITUTIONAL: Well developed and in no acute distress. EYES: Conjuctivae without sclera icterus. Extraocular movements grossly intact. HEAD, EARS, NOSE, THROAT: Moist buccal mucosa. Head is atraumatic, normocephalic. NG tube present. NG tube output with yellow-green output. RESPIRATORY: Equal bilateral excursions. Coarse breath sounds. CARDIOVASCULAR: 2+ radial pulses. ABDOMEN: Wound VAC intact. Soft. Ileostomy with gas, no drainage. MUSCULOSKELETAL: No clubbing. No cyanosis. Has 2+ edema along left forearm. SKIN: Good skin turgor. NEUROLOGIC: No focal or lateralizing signs. PSYCH: Follows commands CLINICAL LABS: White blood cell count elevated from 10-10.8, up to 11.7. Hemoglobin of 9.2 to 9.8, now 10.0 Creatinine down to 1.5-1.44. ASSESSMENT: 1. Ischemic colitis 2. Acute blood loss anemia 3. Intra-abdominal hermorrhage 4. Expected ileus PLAN: 1. He reports hunger and willing for oral trial of food. 2. Recommend speech path for swallow evaluation 3. May start oral pudding for diet, not clear liquid diet. 4. May start tube feeds cautiously. Objective - Vital Signs Vital signs: Vital Signs Temp 98.5 F 08/13/20 08:00 Pulse 90 08/13/20 08:16 Resp 36 H 08/13/20 08:00 BP 106/82 08/13/20 08:00 Pulse Ox 99 08/13/20 08:00 Intake & Output 08/12/20 08/13/20 08/13/20 18:59 06:59 18:59 Intake Total 2262.867 923.309 383 Output Total 2300 1245 325 Balance -37.133 -321.691 58 Weight 89.6 kg Intake: IV 1186 866 353 Anidulafungin 100 mg In 100 Sodium Chloride 0.9% 100 ml @ 84 mls/hr IVPB DAILY [facility] Rx#:[id number] DAPTOmycin 650 mg In 50 Sodium Chloride 0.9% 50 ml @ 100 mls/hr IVPB Q48H [facility] Rx#:[id number] Fat Emulsion 20% 250 ml @ 120 20 20.833 mls/hr IV DAILY@ 1200 [facility] Rx#:[id number] Magnesium Sulfate-D5w Pmx 100 1 gm In Dextrose/Water 1 100ml.bag @ 100 mls/hr IVPB Q1H [facility] Rx#: [id number] Sodium Chloride 0.9% 1, 80 000 ml @ 20 mls/hr IV . Q24H [facility] Rx#:[id number] TPN 900 825 150 pressure bag 36 21 3 Intake, IV Titration 1076.867 57.309 0 Amount Insulin Regular 100 unit 45.367 57.309 0 In Sodium Chloride 0.9% 100 ml @ Per Protocol IV .Q0M [facility] Rx#:[id number] Sodium Acetate 35 meq 1031.5 Potassium Acetate 28 meq In Amino Acids 5 %/ Dextrose 20 % 1,000 ml @ 75 mls/hr IV .BY DURATION [facility] Rx#:[id number] Other 30 Output: Gastric Drainage 150 350 200 Urine 2150 895 125 Other: Voiding Method Indwelling Catheter Indwelling Catheter Indwelling Catheter ABP, PAP, CO, CI - Last Documented Arterial Blood Pressure 112/60 Pulmonary Artery Pressure 33/14 Cardiac Output 6.7 Cardiac Index 3.1 - Labs CBC & Chem 7: 08/13/20 04:10 08/13/20 04:10 Labs: Abnormal Lab Results - Last 24 Hours (Table) 08/13/20 08/13/20 Range/Units 04:10 04:10 WBC 11.7 H (3.8-10.6) k/uL RBC 3.26 L (4.30-5.90) m/uL Hgb 10.0 L (13.0-17.5) gm/dL Hct 31.8 L (39.0-53.0) % RDW 16.8 H (11.5-15.5) % Neutrophils # 9.9 H (1.3-7.7) k/uL Lymphocytes # 0.6 L (1.0-4.8) k/uL Carbon Dioxide 37 H (22-30) mmol/L BUN 60 H (9-20) mg/dL Creatinine 1.47 H (0.66-1.25) mg/dL Glucose 151 H (74-99) mg/dL Assessment and Plan (1) Intra abdominal hemorrhage Current Visit: Yes Status: Acute Code(s): R58 - HEMORRHAGE, NOT ELSEWHERE CLASSIFIED SNOMED Code(s): 457359254 (2) Ischemic colitis, enteritis, or enterocolitis Current Visit: Yes Status: Acute Code(s): K55.9 - VASCULAR DISORDER OF INTESTINE, UNSPECIFIED SNOMED Code(s): 36792405 (3) Ileus following gastrointestinal surgery Current Visit: Yes Status: Acute Code(s): K91.89 - OTH POSTPROCEDURAL COMPLICATIONS AND DISORDERS OF DGSTV SYS; K56.7 - ILEUS, UNSPECIFIED SNOMED Code(s): 125901234
[2020-08-13 09:26] LABS: Glucose,Whole Blood 109 mg/dL (75-99)
[2020-08-13 09:26] LABS: Glucose,Whole Blood 199 mg/dL (75-99)
[2020-08-13 09:26] LABS: Glucose,Whole Blood 171 mg/dL (75-99)
[2020-08-13 09:26] LABS: Glucose,Whole Blood 132 mg/dL (75-99)
[2020-08-13 09:26] LABS: Glucose,Whole Blood 173 mg/dL (75-99)
[2020-08-13 09:26] LABS: Glucose,Whole Blood 120 mg/dL (75-99)
[2020-08-13 09:26] LABS: Glucose,Whole Blood 138 mg/dL (75-99)
[2020-08-13 09:26] LABS: Glucose,Whole Blood 89 mg/dL (75-99)
[2020-08-13 09:26] LABS: Glucose,Whole Blood 85 mg/dL (75-99)
[2020-08-13 09:26] LABS: Glucose,Whole Blood 97 mg/dL (75-99)
[2020-08-13 09:26] LABS: Glucose,Whole Blood 125 mg/dL (75-99)
[2020-08-13 09:26] LABS: Glucose,Whole Blood 127 mg/dL (75-99)
[2020-08-13 09:26] LABS: Glucose,Whole Blood 132 mg/dL (75-99)
[2020-08-13 09:26] LABS: Glucose,Whole Blood 121 mg/dL (75-99)
[2020-08-13 09:26] LABS: Glucose,Whole Blood 93 mg/dL (75-99)
[2020-08-13 09:26] LABS: Glucose,Whole Blood 153 mg/dL (75-99)
[2020-08-13 09:26] LABS: Glucose,Whole Blood 181 mg/dL (75-99)
[2020-08-13 09:26] LABS: Glucose,Whole Blood 114 mg/dL (75-99)
[2020-08-13 09:26] LABS: Glucose,Whole Blood 125 mg/dL (75-99)
[2020-08-13 09:26] LABS: Glucose,Whole Blood 155 mg/dL (75-99)
[2020-08-13 09:26] LABS: Glucose,Whole Blood 131 mg/dL (75-99)
[2020-08-13 09:26] LABS: Glucose,Whole Blood 74 mg/dL (75-99)
[2020-08-13 09:26] LABS: Glucose,Whole Blood 146 mg/dL (75-99)
[2020-08-13 09:26] LABS: Glucose,Whole Blood 107 mg/dL (75-99)
[2020-08-13 09:26] LABS: Glucose,Whole Blood 138 mg/dL (75-99)
[2020-08-13 09:26] LABS: Glucose,Whole Blood 147 mg/dL (75-99)
[2020-08-13 09:26] LABS: Glucose,Whole Blood 153 mg/dL (75-99)
[2020-08-13 09:26] LABS: Glucose,Whole Blood 114 mg/dL (75-99)
[2020-08-13 09:26] LABS: Glucose,Whole Blood 166 mg/dL (75-99)
[2020-08-13 09:26] LABS: Glucose,Whole Blood 118 mg/dL (75-99)
[2020-08-13 09:27] LABS: Glucose,Whole Blood 134 mg/dL (75-99)
[2020-08-13 09:27] LABS: Glucose,Whole Blood 131 mg/dL (75-99)
[2020-08-13 09:27] LABS: Glucose,Whole Blood 139 mg/dL (75-99)
[2020-08-13 09:27] LABS: Glucose,Whole Blood 137 mg/dL (75-99)
[2020-08-13 09:27] LABS: Glucose,Whole Blood 180 mg/dL (75-99)
[2020-08-13 09:27] LABS: Glucose,Whole Blood 118 mg/dL (75-99)
[2020-08-13 09:27] LABS: Glucose,Whole Blood 144 mg/dL (75-99)
[2020-08-13 09:27] LABS: Glucose,Whole Blood 116 mg/dL (75-99)
[2020-08-13 09:27] LABS: Glucose,Whole Blood 116 mg/dL (75-99)
[2020-08-13 09:27] LABS: Glucose,Whole Blood 125 mg/dL (75-99)
[2020-08-13 09:27] LABS: Glucose,Whole Blood 154 mg/dL (75-99)
[2020-08-13 09:27] LABS: Glucose,Whole Blood 147 mg/dL (75-99)
[2020-08-13 09:27] LABS: Glucose,Whole Blood 131 mg/dL (75-99)
[2020-08-13 09:27] LABS: Glucose,Whole Blood 132 mg/dL (75-99)
[2020-08-13 09:27] LABS: Glucose,Whole Blood 84 mg/dL (75-99)
[2020-08-13 09:27] LABS: Glucose,Whole Blood 103 mg/dL (75-99)
[2020-08-13 09:27] LABS: Glucose,Whole Blood 108 mg/dL (75-99)
[2020-08-13 09:27] LABS: Glucose,Whole Blood 137 mg/dL (75-99)
[2020-08-13 09:27] LABS: Glucose,Whole Blood 173 mg/dL (75-99)
[2020-08-13 09:27] LABS: Glucose,Whole Blood 138 mg/dL (75-99)
[2020-08-13 09:27] LABS: Glucose,Whole Blood 111 mg/dL (75-99)
[2020-08-13 09:27] LABS: Glucose,Whole Blood 138 mg/dL (75-99)
[2020-08-13 09:28] LABS: Glucose,Whole Blood 145 mg/dL (75-99)
[2020-08-13 09:28] LABS: Glucose,Whole Blood 124 mg/dL (75-99)
[2020-08-13 09:28] LABS: Glucose,Whole Blood 155 mg/dL (75-99)
[2020-08-13 09:28] LABS: Glucose,Whole Blood 161 mg/dL (75-99)
[2020-08-13 09:28] LABS: Glucose,Whole Blood 125 mg/dL (75-99)
[2020-08-13 09:28] LABS: Glucose,Whole Blood 101 mg/dL (75-99)
[2020-08-13 09:28] LABS: Glucose,Whole Blood 145 mg/dL (75-99)
[2020-08-13 09:28] LABS: Glucose,Whole Blood 137 mg/dL (75-99)
[2020-08-13 09:28] LABS: Glucose,Whole Blood 122 mg/dL (75-99)
[2020-08-13 09:28] LABS: Glucose,Whole Blood 157 mg/dL (75-99)
[2020-08-13 09:28] LABS: Glucose,Whole Blood 114 mg/dL (75-99)
[2020-08-13 09:28] LABS: Glucose,Whole Blood 90 mg/dL (75-99)
[2020-08-13 09:28] LABS: Glucose,Whole Blood 86 mg/dL (75-99)
[2020-08-13 09:28] LABS: Glucose,Whole Blood 162 mg/dL (75-99)
[2020-08-13 09:43] LABS: Glucose,Whole Blood 181 mg/dL (75-99)
--- NOTE | 2020-08-13 10:03 | PN ---
PROGRESS NOTE 80-year-old gentleman was admitted to ICU following bypass surgery. He has been in the hospital for a month now. His post CABG course was complicated by multiple complex medical problems. He denies chest pain. He is alert and is able to talk today. He is in sinus rhythm today, but he is having paroxysmal episodes of atrial flutter, not a candidate for anticoagulation. He is on amiodarone and Lopressor, which he is going to continue. On exam, heart rate is 90 beats per minute. Blood pressure is 106/80. Respiratory rate is 18. Chest exam reveals diminished air entry at the bases. Heart exam reveals first and second heart sounds. No gallop. Exam of extremities did not reveal any edema. Peripheral pulses are felt. Labs show a hemoglobin of 10, platelet count of 306. Potassium is 4.2, BUN is 60, creatinine is 1.4. ASSESSMENT: 1. Coronary artery disease status post coronary artery bypass grafting. 2. Persistent atrial fibrillation. PLAN: I will continue current medications. He appears more alert and awake today. MMODL / IJN: [id number] /
--- NOTE | 2020-08-13 10:14 | P.PN ---
Subjective Progress Note Date: 08/13/20 Principal diagnosis: Coronary artery disease, status post three-vessel bypass grafting 79-year-old white male patient with past medical history of hypertension, hyperlipidemia, moderate to severe COPD with the baseline FEV1 of 56% of predicted who came in on 07/18/2020 for elective two-vessel bypass grafting with PABLO to LAD, and SVG to the PDA. He was seen in the intensive care unit following surgery, patient was successfully weaned and extubated from mechanical ventilator and under 6 hours following his OR exit, is currently awake and alert, sitting in the chair, he is currently on 2 L of oxygen, his pulse ox is 98%, hemodynamically he stable, blood pressure is 106/51, PA pressures 35/11, CVP is 8, no fever or chills, IV fluids including the 0.9 normal saline at a r ate of 30 ML per hour, insulin is 4.5 units per hour, no vasoactive drips. Today's chest x-ray shows a pneumoperitoneum with lucency present underneath the right hemidiaphragm. He has left pleural and mediastinal chest tube, and there has been 500 mL of serosanguineous output from the left pleural and 350 mL from the mediastinal chest tube in the last 24 hours. Is having some mild discomfort under the right rib cage, but no acute distress, abdomen is distended but soft, he is hemodynamically stable, he is in sinus mechanism, no nausea vomiting or diarrhea. CT of the abdomen and pelvis is pending today's labs have been reviewed, showing white blood cell count of 11.9, hemoglobin of 9, sodium is 133, the rest of the electrolytes were within normal limits, B1 is 25 creatinine is 1.18 The patient is seen today 07/20/2020 in follow-up in the intensive care unit. He is currently sitting up in a chair at the bedside. Awake and alert in no acute distress. This is postoperative day #2, two-vessel coronary artery bypass surgery. He is currently on 2 L/m per nasal cannula maintaining good O2 saturation in the 90s. He did have issues with atrial fibrillation and is currently on Cardizem drip at 10 mg per hour. He did receive IV amiodarone, initiated on by mouth today. 0.9 normal saline at KVO. Chest x-ray reveals removal of mediastinal drains. Right-sided pneumoperitoneum is no longer appreciated. Left-sided chest tube remains in place. Bibasilar patchy atelectasis remains. White count 18.2. Hemoglobin 8.9. Platelet count 99,000. Sodium 127. Potassium 5.0. Creatinine 1.37. He is pulling approximately 3769-4672 ML's on the incentive spirometer. Continued on bronchodilators. Heparin for DVT prophylaxis. Patient is seen today 07/22/2020 in follow-up on the intensive care unit. He is currently sitting up in a chair at the bedside. He is having complaints of increasing shortness of breath. He is doing less on his incentive spirometer. Chest x-ray reveals small right pleural effusion with adjacent atelectasis and/or consolidation. He is currently maintaining O2 saturations in the low 90s on 3 L/m per nasal cannula. Respiratory rate 32. He is afebrile. Blood pressure stable. He did have issues with atrial fibrillation with rapid ventricular response last evening. He is on a Cardizem drip at 10 mg per hour. He will be transitioned to Eliquis. On oral amiodarone. 0.9 normal saline at 20 ML's per hour. Currently in sinus rhythm. White count 16.8. Hemoglobin 8.8. Sodium 124. Potassium 5.3. Bicarb 20. Creatinine 1.62. AST 147. ALT 130. He is still having issues with hypoactive bowel and not passing flatus or bowel movement since surgery. He remains on bronchodilators and IV Solu-Medrol. The patient is seen today 07/23/2020 in follow-up in the intensive care unit. Postoperative day #5. He is awake and alert in no acute distress. Currently sitting up in a chair at the bedside. He is feeling stronger today. Less short of breath. Maintaining O2 saturations in the 90s on 3 L/m per nasal cannula. Chest x-ray continues to show a small right pleural effusion with prominent right greater than left basilar atelectasis. He is doing better with his incentive spirometer. White count 15.2. Hemoglobin 81.1. Sodium 124. Potassium 5.3. Creatinine 1.84. AST 136. ALT 193. Albumin 3.4. No IV fluids currently. Is continued on bronchodilators, IV Solu-Medrol, anticoagulated with Eliquis. Still has not had a bowel movement. The patient is seen today 08/09/2020 in follow-up in the intensive care unit. He was extubated again yesterday 08/08/2020. He is currently on 2 L/m per nasal cannula. TPN at 75 ML's per hour. 0.9#10 ML's per hour. Amiodarone at 0.25 mg/m. Insulin drip at 7 units per hour. His x-ray reveals some evidence of fluid volume overload. He is also quite edematous. He'll receive Lasix 40 mg IVP 1 today. He'll also be placed on BiPAP 07/22 on 40% FiO2 as he remains slightly tachypneic and shallow breathing. He is quite weak and debilitated today. He remains on bronchodilators. Eraxis. Daptomycin. Being nourished with lipid and TPN. The patient is seen today 08/11/2020 in follow-up in the intensive care unit. He is currently resting fairly comfortably in bed. Maintaining O2 saturation in the 90s on 2 L/m per nasal cannula. He did wear BiPAP last night at 12/5 and 28% FiO2. He is being nourished with TPN at 75 ML's per hour. He is on insulin at 5.5 units per hour. He remains on amiodarone at 0.25 mg/m. White count 10.0. Hemoglobin 9.2. Sodium 145. Potassium 4.0. Creatinine 1.50. Glucose 120. Chest xray reveals persistent bilateral lung opacities and pleural effusions. No significant change. Remains on DuoNeb inhalations, daptomycin, meropenem. Remains slightly tachycardic. Temperature 99.2 axillary. Needs increased encouragement regarding the use of the incentive spirometer. The patient is seen today 08/12/2020 in follow-up in the intensive care unit. He is awake and alert in no acute distress. He is maintaining O2 saturation in the 90s on 2 L/m per nasal cannula. He has TPN at 75 ML's per hour. 0.9 normal sitting at 10 MLS per hour. Insulin drip at 4 units per hour. Chest x-ray showed a questionable left apical pneumothorax. Computed tomography scan of the chest revealed advanced upper lung emphysema but no convincing pneumothorax. There is moderate bilateral pleural effusions with atelectatic collapse of the entire bilateral lower lobes. Small pericardial effusion. He continues to breathe quite shallow with tachypnea. He remains quite weak and debilitated. Currently afebrile. Hemodynamically stable. White count 10.8. Hemoglobin 9.8. Sodium 143. Potassium 4.1. Creatinine 1.44. Glucose 152. AST 49. ALT 62. Albumin 2.5. He remains on daptomycin, Eraxis, bronchodilators. The patient is seen today 08/13/2020 in follow-up in the intensive care unit. He is currently resting fairly comfortably in bed. He remains awake. He is still very weak and debilitated. Physical therapy is working with the patient. He continues with rapid shallow breathing despite encouraging him to take slower deeper breaths. He is maintaining good O2 saturation in the 90s on 2 L/m per nasal cannula. He has TPN for nourishment at 75 ML's per hour. 0.9#10 mL per hour. Insulin drip at 7 units per hour. Chest x-ray continued showing evidence of COPD and continue small to moderate effusions with adjacent atelectasis/ consolidations. He continues to need increased encouragement to utilize the incentive spirometer and cough and deep breathing exercises. White count 11.7. Hemoglobin 10.0. Sodium 144. Potassium 4.2. Creatinine 1.47. Glucose 151. He remains on DuoNeb inhalations, Pulmicort inhalations. Antibiotics in the form of daptomycin. Eraxis. Heparin for DVT prophylaxis. Objective - Vital Signs Vital signs: Vital Signs Temp 98.5 F 08/13/20 08:00 Pulse 85 08/13/20 09:00 Resp 38 H 08/13/20 09:00 BP 121/86 08/13/20 09:00 Pulse Ox 91 L 08/13/20 09:00 Intake & Output 08/12/20 08/13/20 08/13/20 18:59 06:59 18:59 Intake Total 2262.867 923.309 386.85 Output Total 2300 1245 325 Balance -37.133 -321.691 61.85 Weight 89.6 kg Intake: IV 1186 866 353 Anidulafungin 100 mg In 100 Sodium Chloride 0.9% 100 ml @ 84 mls/hr IVPB DAILY ON LICENSE OF [facility] Rx#:[id number] DAPTOmycin 650 mg In 50 Sodium Chloride 0.9% 50 ml @ 100 mls/hr IVPB Q48H [facility] Rx#:[id number] Fat Emulsion 20% 250 ml @ 120 20 20.833 mls/hr IV DAILY@ 1200 [facility] Rx#:[id number] Magnesium Sulfate-D5w Pmx 100 1 gm In Dextrose/Water 1 100ml.bag @ 100 mls/hr IVPB Q1H [facility] Rx#: [id number] Sodium Chloride 0.9% 1, 80 000 ml @ 20 mls/hr IV . Q24H [facility] Rx#:[id number] TPN 900 825 150 pressure bag 36 21 3 Intake, IV Titration 1076.867 57.309 3.85 Amount Insulin Regular 100 unit 45.367 57.309 3.85 In Sodium Chloride 0.9% 100 ml @ Per Protocol IV .Q0M [facility] Rx#:[id number] Sodium Acetate 35 meq 1031.5 Potassium Acetate 28 meq In Amino Acids 5 %/ Dextrose 20 % 1,000 ml @ 75 mls/hr IV .BY DURATION [facility] Rx#:[id number] Other 30 Output: Gastric Drainage 150 350 200 Urine 2150 895 125 Other: Voiding Method Indwelling Catheter Indwelling Catheter Indwelling Catheter ABP, PAP, CO, CI - Last Documented Arterial Blood Pressure 112/60 Pulmonary Artery Pressure 33/14 Cardiac Output 6.7 Cardiac Index 3.1 - Exam GENERAL EXAM: Alert, very pleasant, 79-year-old male patient, very weak and debilitated, on 2 L of oxygen, fairly comfortable in no apparent distress. HEAD: Normocephalic/atraumatic. EYES: Normal reaction of pupils, equal size. Conjunctiva pink, sclera white. NOSE: Clear with pink turbinates. THROAT: No erythema or exudates. NECK: No masses, no JVD, no thyroid enlargement, no adenopathy. CHEST: No chest wall deformity. Symmetrical expansion. Midsternal incision is clean dry and intact LUNGS: Equal air entry with scattered crackles in the bases. CVS: Regular rate and rhythm, normal S1 and S2, no gallops, no murmurs, no rubs ABDOMEN: Incision clean dry well approximated. Wound VAC in place. Ileostomy t he right side of the abdomen EXTREMITIES: No clubbing, no edema, no cyanosis, 2+ pulses and upper and lower extremities. MUSCULOSKELETAL: Muscle strength and tone normal. SPINE: No scoliosis or deformity SKIN: No rashes CENTRAL NERVOUS SYSTEM: No focal deficits, tone is normal in all 4 extremities. PSYCHIATRIC: Alert and oriented -3. Appropriate affect. Intact judgment and insight. - Labs CBC & Chem 7: 08/13/20 04:10 08/13/20 04:10 Labs: Abnormal Lab Results - Last 24 Hours (Table) 08/09/20 08/09/20 08/10/20 Range/Units 22:20 23:52 01:16 WBC (3.8-10.6) k/uL RBC (4.30-5.90) m/uL Hgb (13.0-17.5) gm/dL Hct (39.0-53.0) % RDW (11.5-15.5) % Neutrophils # (1.3-7.7) k/uL Lymphocytes # (1.0-4.8) k/uL Carbon Dioxide (22-30) mmol/L BUN (9-20) mg/dL Creatinine (0.66-1.25) mg/dL Glucose (74-99) mg/dL POC Glucose (mg/dL) 109 H 125 H 125 H (75-99) mg/dL 08/10/20 08/10/20 08/10/20 Range/Units 01:19 03:09 05:09 WBC (3.8-10.6) k/uL RBC (4.30-5.90) m/uL Hgb (13.0-17.5) gm/dL Hct (39.0-53.0) % RDW (11.5-15.5) % Neutrophils # (1.3-7.7) k/uL Lymphocytes # (1.0-4.8) k/uL Carbon Dioxide (22-30) mmol/L BUN (9-20) mg/dL Creatinine (0.66-1.25) mg/dL Glucose (74-99) mg/dL POC Glucose (mg/dL) 153 H 131 H 114 H (75-99) mg/dL 08/10/20 08/10/20 08/10/20 Range/Units 07:16 09:05 10:10 WBC (3.8-10.6) k/uL RBC (4.30-5.90) m/uL Hgb (13.0-17.5) gm/dL Hct (39.0-53.0) % RDW (11.5-15.5) % Neutrophils # (1.3-7.7) k/uL Lymphocytes # (1.0-4.8) k/uL Carbon Dioxide (22-30) mmol/L BUN (9-20) mg/dL Creatinine (0.66-1.25) mg/dL Glucose (74-99) mg/dL POC Glucose (mg/dL) 166 H 153 H 146 H (75-99) mg/dL 08/10/20 08/10/20 08/10/20 Range/Units 11:17 15:30 17:07 WBC (3.8-10.6) k/uL RBC (4.30-5.90) m/uL Hgb (13.0-17.5) gm/dL Hct (39.0-53.0) % RDW (11.5-15.5) % Neutrophils # (1.3-7.7) k/uL Lymphocytes # (1.0-4.8) k/uL Carbon Dioxide (22-30) mmol/L BUN (9-20) mg/dL Creatinine (0.66-1.25) mg/dL Glucose (74-99) mg/dL POC Glucose (mg/dL) 132 H 107 H 199 H (75-99) mg/dL 08/10/20 08/10/20 08/10/20 Range/Units 18:41 20:33 22:28 WBC (3.8-10.6) k/uL RBC (4.30-5.90) m/uL Hgb (13.0-17.5) gm/dL Hct (39.0-53.0) % RDW (11.5-15.5) % Neutrophils # (1.3-7.7) k/uL Lymphocytes # (1.0-4.8) k/uL Carbon Dioxide (22-30) mmol/L BUN (9-20) mg/dL Creatinine (0.66-1.25) mg/dL Glucose (74-99) mg/dL POC Glucose (mg/dL) 181 H 120 H 147 H (75-99) mg/dL 08/11/20 08/11/20 08/11/20 Range/Units 00:14 01:27 04:44 WBC (3.8-10.6) k/uL RBC (4.30-5.90) m/uL Hgb (13.0-17.5) gm/dL Hct (39.0-53.0) % RDW (11.5-15.5) % Neutrophils # (1.3-7.7) k/uL Lymphocytes # (1.0-4.8) k/uL Carbon Dioxide (22-30) mmol/L BUN (9-20) mg/dL Creatinine (0.66-1.25) mg/dL Glucose (74-99) mg/dL POC Glucose (mg/dL) 155 H 138 H 118 H (75-99) mg/dL 08/11/20 08/11/20 08/11/20 Range/Units 07:09 09:09 10:41 WBC (3.8-10.6) k/uL RBC (4.30-5.90) m/uL Hgb (13.0-17.5) gm/dL Hct (39.0-53.0) % RDW (11.5-15.5) % Neutrophils # (1.3-7.7) k/uL Lymphocytes # (1.0-4.8) k/uL Carbon Dioxide (22-30) mmol/L BUN (9-20) mg/dL Creatinine (0.66-1.25) mg/dL Glucose (74-99) mg/dL POC Glucose (mg/dL) 138 H 121 H 74 L (75-99) mg/dL 08/11/20 08/11/20 08/11/20 Range/Units 12:27 15:33 18:08 WBC (3.8-10.6) k/uL RBC (4.30-5.90) m/uL Hgb (13.0-17.5) gm/dL Hct (39.0-53.0) % RDW (11.5-15.5) % Neutrophils # (1.3-7.7) k/uL Lymphocytes # (1.0-4.8) k/uL Carbon Dioxide (22-30) mmol/L BUN (9-20) mg/dL Creatinine (0.66-1.25) mg/dL Glucose (74-99) mg/dL POC Glucose (mg/dL) 132 H 114 H 173 H (75-99) mg/dL 12/25/20 12/25/20 12/25/20 Range/Units 19:04 20:28 20:53 WBC (3.8-10.6) k/uL RBC (4.30-5.90) m/uL Hgb (13.0-17.5) gm/dL Hct (39.0-53.0) % RDW (11.5-15.5) % Neutrophils # (1.3-7.7) k/uL Lymphocytes # (1.0-4.8) k/uL Carbon Dioxide (22-30) mmol/L BUN (9-20) mg/dL Creatinine (0.66-1.25) mg/dL Glucose (74-99) mg/dL POC Glucose (mg/dL) 171 H 127 H 116 H (75-99) mg/dL 08/11/20 08/11/20 08/12/20 Range/Units 22:01 23:01 00:08 WBC (3.8-10.6) k/uL RBC (4.30-5.90) m/uL Hgb (13.0-17.5) gm/dL Hct (39.0-53.0) % RDW (11.5-15.5) % Neutrophils # (1.3-7.7) k/uL Lymphocytes # (1.0-4.8) k/uL Carbon Dioxide (22-30) mmol/L BUN (9-20) mg/dL Creatinine (0.66-1.25) mg/dL Glucose (74-99) mg/dL POC Glucose (mg/dL) 138 H 103 H 144 H (75-99) mg/dL 08/12/20 08/12/20 08/12/20 Range/Units 01:02 02:03 03:21 WBC (3.8-10.6) k/uL RBC (4.30-5.90) m/uL Hgb (13.0-17.5) gm/dL Hct (39.0-53.0) % RDW (11.5-15.5) % Neutrophils # (1.3-7.7) k/uL Lymphocytes # (1.0-4.8) k/uL Carbon Dioxide (22-30) mmol/L BUN (9-20) mg/dL Creatinine (0.66-1.25) mg/dL Glucose (74-99) mg/dL POC Glucose (mg/dL) 137 H 125 H 111 H (75-99) mg/dL 08/12/20 08/12/20 08/12/20 Range/Units 04:14 05:18 06:28 WBC (3.8-10.6) k/uL RBC (4.30-5.90) m/uL Hgb (13.0-17.5) gm/dL Hct (39.0-53.0) % RDW (11.5-15.5) % Neutrophils # (1.3-7.7) k/uL Lymphocytes # (1.0-4.8) k/uL Carbon Dioxide (22-30) mmol/L BUN (9-20) mg/dL Creatinine (0.66-1.25) mg/dL Glucose (74-99) mg/dL POC Glucose (mg/dL) 134 H 139 H 138 H (75-99) mg/dL 08/12/20 08/12/20 08/12/20 Range/Units 06:53 08:21 09:02 WBC (3.8-10.6) k/uL RBC (4.30-5.90) m/uL Hgb (13.0-17.5) gm/dL Hct (39.0-53.0) % RDW (11.5-15.5) % Neutrophils # (1.3-7.7) k/uL Lymphocytes # (1.0-4.8) k/uL Carbon Dioxide (22-30) mmol/L BUN (9-20) mg/dL Creatinine (0.66-1.25) mg/dL Glucose (74-99) mg/dL POC Glucose (mg/dL) 137 H 131 H 132 H (75-99) mg/dL 08/12/20 08/12/20 08/12/20 Range/Units 11:25 12:18 13:06 WBC (3.8-10.6) k/uL RBC (4.30-5.90) m/uL Hgb (13.0-17.5) gm/dL Hct (39.0-53.0) % RDW (11.5-15.5) % Neutrophils # (1.3-7.7) k/uL Lymphocytes # (1.0-4.8) k/uL Carbon Dioxide (22-30) mmol/L BUN (9-20) mg/dL Creatinine (0.66-1.25) mg/dL Glucose (74-99) mg/dL POC Glucose (mg/dL) 108 H 131 H 147 H (75-99) mg/dL 08/12/20 08/12/20 08/12/20 Range/Units 14:17 15:03 16:19 WBC (3.8-10.6) k/uL RBC (4.30-5.90) m/uL Hgb (13.0-17.5) gm/dL Hct (39.0-53.0) % RDW (11.5-15.5) % Neutrophils # (1.3-7.7) k/uL Lymphocytes # (1.0-4.8) k/uL Carbon Dioxide (22-30) mmol/L BUN (9-20) mg/dL Creatinine (0.66-1.25) mg/dL Glucose (74-99) mg/dL POC Glucose (mg/dL) 180 H 173 H 154 H (75-99) mg/dL 08/12/20 08/12/20 08/12/20 Range/Units 18:09 18:54 19:55 WBC (3.8-10.6) k/uL RBC (4.30-5.90) m/uL Hgb (13.0-17.5) gm/dL Hct (39.0-53.0) % RDW (11.5-15.5) % Neutrophils # (1.3-7.7) k/uL Lymphocytes # (1.0-4.8) k/uL Carbon Dioxide (22-30) mmol/L BUN (9-20) mg/dL Creatinine (0.66-1.25) mg/dL Glucose (74-99) mg/dL POC Glucose (mg/dL) 116 H 118 H 124 H (75-99) mg/dL 08/12/20 08/12/20 08/12/20 Range/Units 21:06 22:16 23:10 WBC (3.8-10.6) k/uL RBC (4.30-5.90) m/uL Hgb (13.0-17.5) gm/dL Hct (39.0-53.0) % RDW (11.5-15.5) % Neutrophils # (1.3-7.7) k/uL Lymphocytes # (1.0-4.8) k/uL Carbon Dioxide (22-30) mmol/L BUN (9-20) mg/dL Creatinine (0.66-1.25) mg/dL Glucose (74-99) mg/dL POC Glucose (mg/dL) 137 H 155 H 162 H (75-99) mg/dL 08/13/20 08/13/20 08/13/20 Range/Units 00:14 01:01 04:10 WBC (3.8-10.6) k/uL RBC (4.30-5.90) m/uL Hgb (13.0-17.5) gm/dL Hct (39.0-53.0) % RDW (11.5-15.5) % Neutrophils # (1.3-7.7) k/uL Lymphocytes # (1.0-4.8) k/uL Carbon Dioxide 37 H (22-30) mmol/L BUN 60 H (9-20) mg/dL Creatinine 1.47 H (0.66-1.25) mg/dL Glucose 151 H (74-99) mg/dL POC Glucose (mg/dL) 157 H 125 H (75-99) mg/dL 08/13/20 08/13/20 08/13/20 Range/Units 04:10 04:16 05:11 WBC 11.7 H (3.8-10.6) k/uL RBC 3.26 L (4.30-5.90) m/uL Hgb 10.0 L (13.0-17.5) gm/dL Hct 31.8 L (39.0-53.0) % RDW 16.8 H (11.5-15.5) % Neutrophils # 9.9 H (1.3-7.7) k/uL Lymphocytes # 0.6 L (1.0-4.8) k/uL Carbon Dioxide (22-30) mmol/L BUN (9-20) mg/dL Creatinine (0.66-1.25) mg/dL Glucose (74-99) mg/dL POC Glucose (mg/dL) 145 H 145 H (75-99) mg/dL 08/13/20 08/13/20 08/13/20 Range/Units 06:11 06:58 08:04 WBC (3.8-10.6) k/uL RBC (4.30-5.90) m/uL Hgb (13.0-17.5) gm/dL Hct (39.0-53.0) % RDW (11.5-15.5) % Neutrophils # (1.3-7.7) k/uL Lymphocytes # (1.0-4.8) k/uL Carbon Dioxide (22-30) mmol/L BUN (9-20) mg/dL Creatinine (0.66-1.25) mg/dL Glucose (74-99) mg/dL POC Glucose (mg/dL) 122 H 101 H 114 H (75-99) mg/dL 08/13/20 08/13/20 Range/Units 08:53 09:27 WBC (3.8-10.6) k/uL RBC (4.30-5.90) m/uL Hgb (13.0-17.5) gm/dL Hct (39.0-53.0) % RDW (11.5-15.5) % Neutrophils # (1.3-7.7) k/uL Lymphocytes # (1.0-4.8) k/uL Carbon Dioxide (22-30) mmol/L BUN (9-20) mg/dL Creatinine (0.66-1.25) mg/dL Glucose (74-99) mg/dL POC Glucose (mg/dL) 161 H 181 H (75-99) mg/dL Assessment and Plan Assessment: 1 Symptomatic coronary artery disease, status post two-vessel coronary artery bypass grafting with PABLO to the LAD, SVG to the PDA on 07/18/2020 2 Postoperative atrial fibrillation with rapid ventricular response 3 History of coronary artery disease with previous stent placement 4 Intraperitoneal hemorrhage status post exploratory laparotomy, washout of peritoneal cavity and ileostomy on 08/02/2020. 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 Meyers Chest x-ray and labs reviewed Needs increased encouragement regarding the use the incentive spirometer, cough and deep breathing exercises Continue the current treatment plan Increase his activity as tolerated with physical therapy We will continue to follow and make further recommendations based on his clinical status I, the cosigning physician, performed a history & physical examination of the patient. Lungs sounds with basilar crackles. Maintaining good O2 saturations in the 90s on 2 L/m per nasal cannula. I discussed the assessment and plan of care with my nurse practitioner, Olga Marin. I attest to the above note as dictated by her. Time with Patient: Greater than 30
[2020-08-13 10:17] LABS: Glucose,Whole Blood 134 mg/dL (75-99)
--- NOTE | 2020-08-13 10:28 | P.PN ---
Subjective Patient is seen in follow-up for acute kidney injury on chronic kidney disease. Renal function stable. He is now on oral amiodarone drip for A. fib with RVR. Extubated August 08. Currently on nasal cannula. Receiving TPN. Nonoliguric. Urine output 5200 mL an hour. Vital signs are stable. HEENT: On NC. NG tube noted. LUNGS: Breath sounds decreased. HEART: Regular rate and rhythm. ABDOMEN: No gross distention noted. EXTREMITITES: 1+ edema. Objective - Vital Signs Vital signs: Vital Signs Temp 98.5 F 08/13/20 08:00 Pulse 85 08/13/20 09:00 Resp 38 H 08/13/20 09:00 BP 121/86 08/13/20 09:00 Pulse Ox 91 L 08/13/20 09:00 Intake & Output 08/12/20 08/13/20 08/13/20 18:59 06:59 18:59 Intake Total 2262.867 923.309 392.725 Output Total 2300 1245 325 Balance -37.133 -321.691 67.725 Weight 89.6 kg Intake: IV 1186 866 353 Anidulafungin 100 mg In 100 Sodium Chloride 0.9% 100 ml @ 84 mls/hr IVPB DAILY [facility] Rx#:[id number] DAPTOmycin 650 mg In 50 Sodium Chloride 0.9% 50 ml @ 100 mls/hr IVPB Q48H [facility] Rx#:[id number] Fat Emulsion 20% 250 ml @ 120 20 20.833 mls/hr IV DAILY@ 1200 [facility] Rx#:[id number] Magnesium Sulfate-D5w Pmx 100 1 gm In Dextrose/Water 1 100ml.bag @ 100 mls/hr IVPB Q1H [facility] Rx#: [id number] Sodium Chloride 0.9% 1, 80 000 ml @ 20 mls/hr IV . Q24H [facility] Rx#:[id number] TPN 900 825 150 pressure bag 36 21 3 Intake, IV Titration 1076.867 57.309 9.725 Amount Insulin Regular 100 unit 45.367 57.309 9.725 In Sodium Chloride 0.9% 100 ml @ Per Protocol IV .Q0M [facility] Rx#:[id number] Sodium Acetate 35 meq 1031.5 Potassium Acetate 28 meq In Amino Acids 5 %/ Dextrose 20 % 1,000 ml @ 75 mls/hr IV .BY DURATION [facility] Rx#:[id number] Other 30 Output: Gastric Drainage 150 350 200 Urine 2150 895 125 Other: Voiding Method Indwelling Catheter Indwelling Catheter Indwelling Catheter ABP, PAP, CO, CI - Last Documented Arterial Blood Pressure 112/60 Pulmonary Artery Pressure 33/14 Cardiac Output 6.7 Cardiac Index 3.1 - Labs CBC & Chem 7: 08/13/20 04:10 08/13/20 04:10 Labs: Abnormal Lab Results - Last 24 Hours (Table) 08/09/20 08/09/20 08/10/20 Range/Units 22:20 23:52 01:16 WBC (3.8-10.6) k/uL RBC (4.30-5.90) m/uL Hgb (13.0-17.5) gm/dL Hct (39.0-53.0) % RDW (11.5-15.5) % Neutrophils # (1.3-7.7) k/uL Lymphocytes # (1.0-4.8) k/uL Carbon Dioxide (22-30) mmol/L BUN (9-20) mg/dL Creatinine (0.66-1.25) mg/dL Glucose (74-99) mg/dL POC Glucose (mg/dL) 109 H 125 H 125 H (75-99) mg/dL 08/10/20 08/10/20 08/10/20 Range/Units 01:19 03:09 05:09 WBC (3.8-10.6) k/uL RBC (4.30-5.90) m/uL Hgb (13.0-17.5) gm/dL Hct (39.0-53.0) % RDW (11.5-15.5) % Neutrophils # (1.3-7.7) k/uL Lymphocytes # (1.0-4.8) k/uL Carbon Dioxide (22-30) mmol/L BUN (9-20) mg/dL Creatinine (0.66-1.25) mg/dL Glucose (74-99) mg/dL POC Glucose (mg/dL) 153 H 131 H 114 H (75-99) mg/dL 08/10/20 08/10/20 08/10/20 Range/Units 07:16 09:05 10:10 WBC (3.8-10.6) k/uL RBC (4.30-5.90) m/uL Hgb (13.0-17.5) gm/dL Hct (39.0-53.0) % RDW (11.5-15.5) % Neutrophils # (1.3-7.7) k/uL Lymphocytes # (1.0-4.8) k/uL Carbon Dioxide (22-30) mmol/L BUN (9-20) mg/dL Creatinine (0.66-1.25) mg/dL Glucose (74-99) mg/dL POC Glucose (mg/dL) 166 H 153 H 146 H (75-99) mg/dL 08/10/20 08/10/20 08/10/20 Range/Units 11:17 15:30 17:07 WBC (3.8-10.6) k/uL RBC (4.30-5.90) m/uL Hgb (13.0-17.5) gm/dL Hct (39.0-53.0) % RDW (11.5-15.5) % Neutrophils # (1.3-7.7) k/uL Lymphocytes # (1.0-4.8) k/uL Carbon Dioxide (22-30) mmol/L BUN (9-20) mg/dL Creatinine (0.66-1.25) mg/dL Glucose (74-99) mg/dL POC Glucose (mg/dL) 132 H 107 H 199 H (75-99) mg/dL 08/10/20 08/10/20 08/10/20 Range/Units 18:41 20:33 22:28 WBC (3.8-10.6) k/uL RBC (4.30-5.90) m/uL Hgb (13.0-17.5) gm/dL Hct (39.0-53.0) % RDW (11.5-15.5) % Neutrophils # (1.3-7.7) k/uL Lymphocytes # (1.0-4.8) k/uL Carbon Dioxide (22-30) mmol/L BUN (9-20) mg/dL Creatinine (0.66-1.25) mg/dL Glucose (74-99) mg/dL POC Glucose (mg/dL) 181 H 120 H 147 H (75-99) mg/dL 08/11/20 08/11/20 08/11/20 Range/Units 00:14 01:27 04:44 WBC (3.8-10.6) k/uL RBC (4.30-5.90) m/uL Hgb (13.0-17.5) gm/dL Hct (39.0-53.0) % RDW (11.5-15.5) % Neutrophils # (1.3-7.7) k/uL Lymphocytes # (1.0-4.8) k/uL Carbon Dioxide (22-30) mmol/L BUN (9-20) mg/dL Creatinine (0.66-1.25) mg/dL Glucose (74-99) mg/dL POC Glucose (mg/dL) 155 H 138 H 118 H (75-99) mg/dL 08/11/20 08/11/20 08/11/20 Range/Units 07:09 09:09 10:41 WBC (3.8-10.6) k/uL RBC (4.30-5.90) m/uL Hgb (13.0-17.5) gm/dL Hct (39.0-53.0) % RDW (11.5-15.5) % Neutrophils # (1.3-7.7) k/uL Lymphocytes # (1.0-4.8) k/uL Carbon Dioxide (22-30) mmol/L BUN (9-20) mg/dL Creatinine (0.66-1.25) mg/dL Glucose (74-99) mg/dL POC Glucose (mg/dL) 138 H 121 H 74 L (75-99) mg/dL 08/11/20 08/11/20 08/11/20 Range/Units 12:27 15:33 18:08 WBC (3.8-10.6) k/uL RBC (4.30-5.90) m/uL Hgb (13.0-17.5) gm/dL Hct (39.0-53.0) % RDW (11.5-15.5) % Neutrophils # (1.3-7.7) k/uL Lymphocytes # (1.0-4.8) k/uL Carbon Dioxide (22-30) mmol/L BUN (9-20) mg/dL Creatinine (0.66-1.25) mg/dL Glucose (74-99) mg/dL POC Glucose (mg/dL) 132 H 114 H 173 H (75-99) mg/dL 08/11/20 08/11/20 08/11/20 Range/Units 19:04 20:28 20:53 WBC (3.8-10.6) k/uL RBC (4.30-5.90) m/uL Hgb (13.0-17.5) gm/dL Hct (39.0-53.0) % RDW (11.5-15.5) % Neutrophils # (1.3-7.7) k/uL Lymphocytes # (1.0-4.8) k/uL Carbon Dioxide (22-30) mmol/L BUN (9-20) mg/dL Creatinine (0.66-1.25) mg/dL Glucose (74-99) mg/dL POC Glucose (mg/dL) 171 H 127 H 116 H (75-99) mg/dL 08/11/20 08/11/20 08/12/20 Range/Units 22:01 23:01 00:08 WBC (3.8-10.6) k/uL RBC (4.30-5.90) m/uL Hgb (13.0-17.5) gm/dL Hct (39.0-53.0) % RDW (11.5-15.5) % Neutrophils # (1.3-7.7) k/uL Lymphocytes # (1.0-4.8) k/uL Carbon Dioxide (22-30) mmol/L BUN (9-20) mg/dL Creatinine (0.66-1.25) mg/dL Glucose (74-99) mg/dL POC Glucose (mg/dL) 138 H 103 H 144 H (75-99) mg/dL 08/12/20 08/12/20 08/12/20 Range/Units 01:02 02:03 03:21 WBC (3.8-10.6) k/uL RBC (4.30-5.90) m/uL Hgb (13.0-17.5) gm/dL Hct (39.0-53.0) % RDW (11.5-15.5) % Neutrophils # (1.3-7.7) k/uL Lymphocytes # (1.0-4.8) k/uL Carbon Dioxide (22-30) mmol/L BUN (9-20) mg/dL Creatinine (0.66-1.25) mg/dL Glucose (74-99) mg/dL POC Glucose (mg/dL) 137 H 125 H 111 H (75-99) mg/dL 08/12/20 08/12/20 08/12/20 Range/Units 04:14 05:18 06:28 WBC (3.8-10.6) k/uL RBC (4.30-5.90) m/uL Hgb (13.0-17.5) gm/dL Hct (39.0-53.0) % RDW (11.5-15.5) % Neutrophils # (1.3-7.7) k/uL Lymphocytes # (1.0-4.8) k/uL Carbon Dioxide (22-30) mmol/L BUN (9-20) mg/dL Creatinine (0.66-1.25) mg/dL Glucose (74-99) mg/dL POC Glucose (mg/dL) 134 H 139 H 138 H (75-99) mg/dL 08/12/20 08/12/20 08/12/20 Range/Units 06:53 08:21 09:02 WBC (3.8-10.6) k/uL RBC (4.30-5.90) m/uL Hgb (13.0-17.5) gm/dL Hct (39.0-53.0) % RDW (11.5-15.5) % Neutrophils # (1.3-7.7) k/uL Lymphocytes # (1.0-4.8) k/uL Carbon Dioxide (22-30) mmol/L BUN (9-20) mg/dL Creatinine (0.66-1.25) mg/dL Glucose (74-99) mg/dL POC Glucose (mg/dL) 137 H 131 H 132 H (75-99) mg/dL 08/12/20 08/12/20 08/12/20 Range/Units 11:25 12:18 13:06 WBC (3.8-10.6) k/uL RBC (4.30-5.90) m/uL Hgb (13.0-17.5) gm/dL Hct (39.0-53.0) % RDW (11.5-15.5) % Neutrophils # (1.3-7.7) k/uL Lymphocytes # (1.0-4.8) k/uL Carbon Dioxide (22-30) mmol/L BUN (9-20) mg/dL Creatinine (0.66-1.25) mg/dL Glucose (74-99) mg/dL POC Glucose (mg/dL) 108 H 131 H 147 H (75-99) mg/dL 08/12/20 08/12/20 08/12/20 Range/Units 14:17 15:03 16:19 WBC (3.8-10.6) k/uL RBC (4.30-5.90) m/uL Hgb (13.0-17.5) gm/dL Hct (39.0-53.0) % RDW (11.5-15.5) % Neutrophils # (1.3-7.7) k/uL Lymphocytes # (1.0-4.8) k/uL Carbon Dioxide (22-30) mmol/L BUN (9-20) mg/dL Creatinine (0.66-1.25) mg/dL Glucose (74-99) mg/dL POC Glucose (mg/dL) 180 H 173 H 154 H (75-99) mg/dL 08/12/20 08/12/20 08/12/20 Range/Units 18:09 18:54 19:55 WBC (3.8-10.6) k/uL RBC (4.30-5.90) m/uL Hgb (13.0-17.5) gm/dL Hct (39.0-53.0) % RDW (11.5-15.5) % Neutrophils # (1.3-7.7) k/uL Lymphocytes # (1.0-4.8) k/uL Carbon Dioxide (22-30) mmol/L BUN (9-20) mg/dL Creatinine (0.66-1.25) mg/dL Glucose (74-99) mg/dL POC Glucose (mg/dL) 116 H 118 H 124 H (75-99) mg/dL 08/12/20 08/12/20 08/12/20 Range/Units 21:06 22:16 23:10 WBC (3.8-10.6) k/uL RBC (4.30-5.90) m/uL Hgb (13.0-17.5) gm/dL Hct (39.0-53.0) % RDW (11.5-15.5) % Neutrophils # (1.3-7.7) k/uL Lymphocytes # (1.0-4.8) k/uL Carbon Dioxide (22-30) mmol/L BUN (9-20) mg/dL Creatinine (0.66-1.25) mg/dL Glucose (74-99) mg/dL POC Glucose (mg/dL) 137 H 155 H 162 H (75-99) mg/dL 08/13/20 08/13/20 08/13/20 Range/Units 00:14 01:01 04:10 WBC (3.8-10.6) k/uL RBC (4.30-5.90) m/uL Hgb (13.0-17.5) gm/dL Hct (39.0-53.0) % RDW (11.5-15.5) % Neutrophils # (1.3-7.7) k/uL Lymphocytes # (1.0-4.8) k/uL Carbon Dioxide 37 H (22-30) mmol/L BUN 60 H (9-20) mg/dL Creatinine 1.47 H (0.66-1.25) mg/dL Glucose 151 H (74-99) mg/dL POC Glucose (mg/dL) 157 H 125 H (75-99) mg/dL 08/13/20 08/13/20 08/13/20 Range/Units 04:10 04:16 05:11 WBC 11.7 H (3.8-10.6) k/uL RBC 3.26 L (4.30-5.90) m/uL Hgb 10.0 L (13.0-17.5) gm/dL Hct 31.8 L (39.0-53.0) % RDW 16.8 H (11.5-15.5) % Neutrophils # 9.9 H (1.3-7.7) k/uL Lymphocytes # 0.6 L (1.0-4.8) k/uL Carbon Dioxide (22-30) mmol/L BUN (9-20) mg/dL Creatinine (0.66-1.25) mg/dL Glucose (74-99) mg/dL POC Glucose (mg/dL) 145 H 145 H (75-99) mg/dL 08/13/20 08/13/20 08/13/20 Range/Units 06:11 06:58 08:04 WBC (3.8-10.6) k/uL RBC (4.30-5.90) m/uL Hgb (13.0-17.5) gm/dL Hct (39.0-53.0) % RDW (11.5-15.5) % Neutrophils # (1.3-7.7) k/uL Lymphocytes # (1.0-4.8) k/uL Carbon Dioxide (22-30) mmol/L BUN (9-20) mg/dL Creatinine (0.66-1.25) mg/dL Glucose (74-99) mg/dL POC Glucose (mg/dL) 122 H 101 H 114 H (75-99) mg/dL 08/13/20 08/13/20 08/13/20 Range/Units 08:53 09:27 10:15 WBC (3.8-10.6) k/uL RBC (4.30-5.90) m/uL Hgb (13.0-17.5) gm/dL Hct (39.0-53.0) % RDW (11.5-15.5) % Neutrophils # (1.3-7.7) k/uL Lymphocytes # (1.0-4.8) k/uL Carbon Dioxide (22-30) mmol/L BUN (9-20) mg/dL Creatinine (0.66-1.25) mg/dL Glucose (74-99) mg/dL POC Glucose (mg/dL) 161 H 181 H 134 H (75-99) mg/dL Assessment and Plan Plan: Assessment: 1. Acute kidney injury secondary to hemodynamic ATN. No hydronephrosis noted on computed tomography scan. No proteinuria on UA. Nonoliguric. Renal function improved. Creatinine stable at 1.47 today. 2. Chronic kidney disease stage III with baseline creatinine in the range of 1.2-1.5 secondary to nephrosclerosis. UA from June 2020 was benign. 3. Coronary artery disease status post 2 vessel CABG on July 18. 4. Hypervolemic hyponatremia. Improved with diuresis. 5. Bowel ischemia status post exploratory laparotomy and resection. Underwent another exploratory laparotomy on August 02 with ileostomy. 6. Diabetes mellitus. 7. Volume overload. Improved with diuresis. 8. Hypokalemia secondary to diuresis. Status post placement. 9. A. fib maintained on oral amiodarone and Lopressor. 10. Anemia of chronic kidney disease and post-cabg. Status post blood transfusion this admission. Hemoglobin stable. Plan: Maintain TPN per surgical recommendations. Avoid nephrotoxins. Continue to monitor renal function and urine output. Status post IV Lasix yesterday. Okay to repeat another dose 40 mg IV today if urine output tapers down.
[2020-08-13 11:17] LABS: Glucose,Whole Blood 109 mg/dL (75-99)
--- NOTE | 2020-08-13 11:37 | P.PN ---
Subjective Progress Note Date: 08/13/20 Principal diagnosis: Symptomatic triple-vessel coronary artery disease, mild left ventricular dysfunction. Past medical history significant for hypertension, hyperlipidemia, chronic obstructive pulmonary disease with preoperative FEV1 of 53% of predicted value, coronary artery disease with previous stenting to his right coronary artery in 2002, hypothyroid status post partial thyroidectomy, previous tobacco dependence quit smoking 20 years ago, type 2 diabetes mellitus with a preoperative hemoglobin A1c of 5.2%, and chronic kidney disease stage III with a baseline creatinine of 1.4-1.5, family history of premature coronary artery disease with a brother having a CABG at less than 50 years of age. POD #26 double coronary artery bypass grafting using the left internal mammary artery to left anterior descending coronary artery, a reverse greater saphenous vein graft from the aorta to the posterior descending coronary artery. Exclusion of the left atrial appendage using a 35 mm Atriclip, endoscopic harvesting of the right greater saphenous vein, graft flow measurement using the Easelstim system, intraoperative transesophageal echocardiogram and epi-aortic scanning. Postoperative acute blood loss anemia, an expected outcome from hemodilution and cardiopulmonary bypass. Postoperative paroxysmal atrial fibrillation, unexpected. Postoperative pneumoperitoneum, unexpected. Acute on chronic kidney disease secondary to acute tubular necrosis. Pneumatosis of the small bowel. POD #20 ischemic bowel, small bowel resection. Prolonged mechanical ventilation, unexpected. Acute hypoxic respiratory failure requiring reintubation, unexpected. Postoperative hypotension requiring initiation of norepinephrine drip, unexpected, resolved. Acute abdomen, intraperitoneal hemorrhage. Postoperative day #11 exploratory laparotomy, washout of peritoneal cavity, ileostomy with small bowel resection. The patient was seen in follow-up today 08/13/2020 at his bedside in the intensive care unit. The patient is currently resting in bed with his head elevated, opens his eyes easily with verbal stimuli, answering questions appropriately and is oriented 3 at this time. He remains having occasional periods of confusion. He denies any complaints of pain or shortness of breath at this time. Oxygen saturations are 93% on 2 L nasal cannula and he is achieving 500 mL on his incentive spirometry with encouragement. He does have a strong loose productive cough with whitish thin sputum. He remains hemodynamically stable and is currently on no inotropic or pressor support. TPN is infusing at 75 mL per hour per his right arm PICC line for nutritional support. NG tube remains in place to low intermittent wall suction with 300 mL of bilious drainage in the last 12 hours. Right lower quadrant ileostomy with pink stoma and 100 mL output from the ileostomy in the last 8 hours. Lab results today show a WBC count 11.7, hemoglobin 10.0, hematocrit 31.8, platelets 306, BUN 60, and creatinine 1.47. He has been afebrile the last 24 hours. Bedside telemetry showing normal sinus rhythm heart rate 95 BPM, and he is still having some episodes of atrial fibrillation. A computed tomography scan of his chest without contrast was completed yesterday which showed moderate bilateral pleural effusions with atelectatic collapse of the entire bilateral lower lobes, COPD with moderate to advanced upper lung emphysema with no convincing pneumothorax, small pericardial effusion measuring 1.1 cm thick which was decreased from the 07/28/2020 exam, and cholelithiasis. Objective - Vital Signs Vital signs: Vital Signs Temp 98.8 F 08/13/20 04:00 Pulse 98 08/13/20 07:46 Resp 36 H 08/13/20 07:00 BP 134/75 08/13/20 07:00 Pulse Ox 93 L 08/13/20 07:00 Intake & Output 08/12/20 08/13/20 08/13/20 18:59 06:59 18:59 Intake Total 2262.867 923.309 75 Output Total 2300 1245 200 Balance -37.133 -321.691 -125 Weight 89.6 kg Intake: IV 1186 866 75 DAPTOmycin 650 mg In 50 Sodium Chloride 0.9% 50 ml @ 100 mls/hr IVPB Q48H [facility] Rx#:[id number] Fat Emulsion 20% 250 ml @ 120 20 20.833 mls/hr IV DAILY@ 1200 [facility] Rx#:[id number] Sodium Chloride 0.9% 1, 80 000 ml @ 20 mls/hr IV . Q24H [facility] Rx#:[id number] TPN 900 825 75 pressure bag 36 21 Intake, IV Titration 1076.867 57.309 Amount Insulin Regular 100 unit 45.367 57.309 In Sodium Chloride 0.9% 100 ml @ Per Protocol IV .Q0M [facility] Rx#:[id number] Sodium Acetate 35 meq 1031.5 Potassium Acetate 28 meq In Amino Acids 5 %/ Dextrose 20 % 1,000 ml @ 75 mls/hr IV .BY DURATION [facility] Rx#:[id number] Output: Gastric Drainage 150 350 150 Urine 2150 895 50 Other: Voiding Method Indwelling Catheter Indwelling Catheter ABP, PAP, CO, CI - Last Documented Arterial Blood Pressure 112/60 Pulmonary Artery Pressure 33/14 Cardiac Output 6.7 Cardiac Index 3.1 - Constitutional General appearance: Present: cooperative, no acute distress, obese - EENT Eyes: Present: normal appearance. Absent: scleral icterus ENT: Present: hearing grossly normal - Neck Details: Neck is supple, no JVD, no lymphadenopathy. - Respiratory Details: Lung sounds with few scattered rhonchi throughout, diminished to his bilateral bases. No wheezes or crackles. Respirations are symmetrical and nonlabored. Oxygen saturation are 93% on 2 L nasal cannula. Achieving 500 mL on his incentive spirometry with much encouragement. - Cardiovascular Details: Regular rhythm and rate. S1 and S2 present, negative for S3, gallop or murmur. Sternum is stable. Heart hugger is in place. Bedside telemetry showing normal sinus rhythm heart rate 95 BPM. Knee-high ALPHONSO hose and sequential compression devices in place to his bilateral lower extremities. Right arm PICC line in place and functioning. Left radial arterial line in place and functioning. Anasarca. - Gastrointestinal Gastrointestinal Comment(s): Abdomen soft, nontender and nondistended. Hypoactive bowel sounds present in all 4 abdominal quadrants. No guarding or rigidity. No organomegaly apprec iated. TPN at 75 mL per hour for nutritional support. NG tube in place to low intermittent wall suction with 300 mL of bilious drainage in the last 12 hours. Right lower quadrant ileostomy with 100 mL output in the last 8 hours. - Genitourinary Genitourinary Comment(s): Ivllafana catheter for accurate I&O. Draining clear yellow urine with 675 mL output last 8 hours. - Integumentary Integumentary Comment(s): Skin is warm and dry. No clubbing or cyanosis is present. Midline sternal incision is clean, dry and approximated. No drainage redness is present. Right lower extremity EVH sites are clean, dry and approximated. No drainage or redness is present. Midline abdominal incision with wound VAC dressing clean, dry and intact. No air leak present. - Neurologic Neurologic: Present: CNII-XII intact - Musculoskeletal Musculoskeletal: Present: generalized weakness, strength equal bilaterally - Psychiatric Psychiatric Comment(s): Flat affect. Psychiatric: Present: A&O x's 3 - Allied health notes Allied health notes reviewed: nursing - Labs CBC & Chem 7: 08/13/20 04:10 08/13/20 04:10 Labs: Abnormal Lab Results - Last 24 Hours (Table) 08/13/20 08/13/20 Range/Units 04:10 04:10 WBC 11.7 H (3.8-10.6) k/uL RBC 3.26 L (4.30-5.90) m/uL Hgb 10.0 L (13.0-17.5) gm/dL Hct 31.8 L (39.0-53.0) % RDW 16.8 H (11.5-15.5) % Neutrophils # 9.9 H (1.3-7.7) k/uL Lymphocytes # 0.6 L (1.0-4.8) k/uL Carbon Dioxide 37 H (22-30) mmol/L BUN 60 H (9-20) mg/dL Creatinine 1.47 H (0.66-1.25) mg/dL Glucose 151 H (74-99) mg/dL - Imaging and Cardiology Chest x-ray: report reviewed, image reviewed Assessment and Plan Assessment: 1. Heavily calcified symptomatic triple-vessel coronary artery disease, status post 2 vessel coronary artery bypass grafting surgery 2. History of coronary artery disease with stent placement to his right coronary artery in 2002 3. Mild left ventricular dysfunction 4. History of hypertension 5. History of hyperlipidemia 6. Hypothyroid status post partial thyroidectomy 7. Chronic obstructive pulmonary disease with preoperative FEV1 53% of predicted value 8. Remote history of tobacco dependence quit smoking 20 years ago 9. Acute on chronic kidney disease stage III with a baseline creatinine of 1.4- 1.5 10. Diabetes mellitus type 2 with a preoperative hemoglobin A1c 5.2% 11. Postoperative acute blood loss anemia, expected 12. Postoperative paroxysmal atrial fibrillation, unexpected 13. Remote history of pneumonia 14. Postoperative paroxysmal atrial fibrillation, unexpected, status post exclusion of the left atrial appendage 15. Pneumoperitoneum, unexpected 16. Pneumatosis of the small bowel, ischemic bowel, status post resection of the small bowel 17. Positive sputum culture for pseudomonas fluorescens 18. Postoperative prolonged mechanical ventilation 19. Acute hypoxic respiratory failure requiring reintubation, unexpected 20. Postoperative hypotension requiring initiation of norepinephrine drip, unexpected 21. Acute abdomen, intraperitoneal hemorrhage, S/P exploratory laparotomy, washout of peritoneal cavity, ileostomy with small bowel resection 22. Postoperative thrombocytopenia, unexpected Plan: 1. Continue low dose aspirin, metoprolol tartrate 25 mg per NG tube 3 times. We will increase metoprolol tartrate as tolerated, hold for systolic blood pressure less than 100 mmHg and heart rate less than 60. 2. Continue amiodarone 200 mg per NG tube twice a day for atrial fibrillation prophylaxis. 3. Wean oxygen as tolerated. Encourage use of his incentive spirometry 10 times every hour while awake. Bronchodilator management per pulmonary for/critical care medicine. 4. Continue to monitor daily labs and chest x-rays. Replace electrolytes per protocol. 5. Continue GI/DVT prophylaxis. 6. Pain control with current medication regimen. 7. Insulin management per primary care service. 8. Continue TPN at 75 mL per hour. Keep the NG tube to low intermittent wall suction. General surgery started the patient on popsicles and ice chips as tolerated. We will consult speech pathology for swallowing evaluation. Start tube feedings per NG tube when okay with general surgery. Ileostomy had 100 mL output in the last 8 hours. 9. Nephrology following. Avoid nephrotoxic agents. Urine output excellent, 675 mL output last 8 hours. 10. Strict accurate intake and output, daily weights. 11. Continue IV daptomycin, and Eraxis. Positive sputum culture for pseudomonas fluorescens on 07/24/2020. Sputum culture from 08/03/2020 showing Radha albicans. Blood culture results show no growth after 48 hours. Antibiotic management per Dr. Frederick's recommendations. Meropenem was not renewed by infectious disease. 12. Continue Villafana catheter for accurate I's and O's. 13. Continue wound VAC to midline abdominal incision. Dressing changes Friday and Friday, managed by general surgery. 14. No diuresis today. 15. More recommendations to follow based on patient's clinical course. Time with Patient: Greater than 30
--- NOTE | 2020-08-13 11:40 | P.PN ---
Subjective Progress Note Date: 08/13/20 Patient was in ICU bed in sitting position.The patient still has high residuals. Per nurse surgeon was okay with starting oral feeds. No states that she is able to give him popsicles which patient was able to tolerate. Patient's mental status is slightly better this morning. He is AAO 2 (name and [address] only). Objective - Vital Signs Vital signs: Vital Signs Temp 98.5 F 08/13/20 08:00 Pulse 82 08/13/20 11:28 Resp 41 H 08/13/20 11:00 BP 144/60 08/13/20 11:00 Pulse Ox 94 L 08/13/20 11:00 Intake & Output 08/12/20 08/13/20 08/13/20 18:59 06:59 18:59 Intake Total 2262.867 923.309 691.125 Output Total 2300 1245 510 Balance -37.133 -321.691 181.125 Weight 89.6 kg Intake: IV 1186 866 647 Anidulafungin 100 mg In 100 Sodium Chloride 0.9% 100 ml @ 84 mls/hr IVPB DAILY [facility] Rx#:[id number] DAPTOmycin 650 mg In 50 Sodium Chloride 0.9% 50 ml @ 100 mls/hr IVPB Q48H [facility] Rx#:[id number] Fat Emulsion 20% 250 ml @ 120 20 20.833 mls/hr IV DAILY@ 1200 [facility] Rx#:[id number] Magnesium Sulfate-D5w Pmx 100 1 gm In Dextrose/Water 1 100ml.bag @ 100 mls/hr IVPB Q1H [facility] Rx#: [id number] Sodium Chloride 0.9% 1, 80 60 000 ml @ 20 mls/hr IV . Q24H [facility] Rx#:[id number] TPN 900 825 375 pressure bag 36 21 12 Intake, IV Titration 1076.867 57.309 14.125 Amount Insulin Regular 100 unit 45.367 57.309 14.125 In Sodium Chloride 0.9% 100 ml @ Per Protocol IV .Q0M [facility] Rx#:[id number] Sodium Acetate 35 meq 1031.5 Potassium Acetate 28 meq In Amino Acids 5 %/ Dextrose 20 % 1,000 ml @ 75 mls/hr IV .BY DURATION [facility] Rx#:[id number] Other 30 Output: Gastric Drainage 150 350 200 Urine 2150 895 310 Other: Voiding Method Indwelling Catheter Indwelling Catheter Indwelling Catheter ABP, PAP, CO, CI - Last Documented Arterial Blood Pressure 112/60 Pulmonary Artery Pressure 33/14 Cardiac Output 6.7 Cardiac Index 3.1 - Exam General examination - Alert and Oriented 2 in [id number] respiratory distress, appears chronically debilitated Heart - + S1S2 no murmurs Lungs - diminished breath sounds bilaterally, tachypneic Abdomen soft NT ND +ve BS Extremities - diffuse generalized edema [employer]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 Psych - mildly confused - Labs CBC & Chem 7: 08/13/20 04:10 08/13/20 04:10 Labs: Abnormal Lab Results - Last 24 Hours (Table) 08/09/20 08/09/20 08/10/20 Range/Units 22:20 23:52 01:16 WBC (3.8-10.6) k/uL RBC (4.30-5.90) m/uL Hgb (13.0-17.5) gm/dL Hct (39.0-53.0) % RDW (11.5-15.5) % Neutrophils # (1.3-7.7) k/uL Lymphocytes # (1.0-4.8) k/uL Carbon Dioxide (22-30) mmol/L BUN (9-20) mg/dL Creatinine (0.66-1.25) mg/dL Glucose (74-99) mg/dL POC Glucose (mg/dL) 109 H 125 H 125 H (75-99) mg/dL 08/10/20 08/10/20 08/10/20 Range/Units 01:19 03:09 05:09 WBC (3.8-10.6) k/uL RBC (4.30-5.90) m/uL Hgb (13.0-17.5) gm/dL Hct (39.0-53.0) % RDW (11.5-15.5) % Neutrophils # (1.3-7.7) k/uL Lymphocytes # (1.0-4.8) k/uL Carbon Dioxide (22-30) mmol/L BUN (9-20) mg/dL Creatinine (0.66-1.25) mg/dL Glucose (74-99) mg/dL POC Glucose (mg/dL) 153 H 131 H 114 H (75-99) mg/dL 08/10/20 08/10/20 08/10/20 Range/Units 07:16 09:05 10:10 WBC (3.8-10.6) k/uL RBC (4.30-5.90) m/uL Hgb (13.0-17.5) gm/dL Hct (39.0-53.0) % RDW (11.5-15.5) % Neutrophils # (1.3-7.7) k/uL Lymphocytes # (1.0-4.8) k/uL Carbon Dioxide (22-30) mmol/L BUN (9-20) mg/dL Creatinine (0.66-1.25) mg/dL Glucose (74-99) mg/dL POC Glucose (mg/dL) 166 H 153 H 146 H (75-99) mg/dL 08/10/20 08/10/20 08/10/20 Range/Units 11:17 15:30 17:07 WBC (3.8-10.6) k/uL RBC (4.30-5.90) m/uL Hgb (13.0-17.5) gm/dL Hct (39.0-53.0) % RDW (11.5-15.5) % Neutrophils # (1.3-7.7) k/uL Lymphocytes # (1.0-4.8) k/uL Carbon Dioxide (22-30) mmol/L BUN (9-20) mg/dL Creatinine (0.66-1.25) mg/dL Glucose (74-99) mg/dL POC Glucose (mg/dL) 132 H 107 H 199 H (75-99) mg/dL 08/10/20 08/10/20 08/10/20 Range/Units 18:41 20:33 22:28 WBC (3.8-10.6) k/uL RBC (4.30-5.90) m/uL Hgb (13.0-17.5) gm/dL Hct (39.0-53.0) % RDW (11.5-15.5) % Neutrophils # (1.3-7.7) k/uL Lymphocytes # (1.0-4.8) k/uL Carbon Dioxide (22-30) mmol/L BUN (9-20) mg/dL Creatinine (0.66-1.25) mg/dL Glucose (74-99) mg/dL POC Glucose (mg/dL) 181 H 120 H 147 H (75-99) mg/dL 08/11/20 08/11/20 08/11/20 Range/Units 00:14 01:27 04:44 WBC (3.8-10.6) k/uL RBC (4.30-5.90) m/uL Hgb (13.0-17.5) gm/dL Hct (39.0-53.0) % RDW (11.5-15.5) % Neutrophils # (1.3-7.7) k/uL Lymphocytes # (1.0-4.8) k/uL Carbon Dioxide (22-30) mmol/L BUN (9-20) mg/dL Creatinine (0.66-1.25) mg/dL Glucose (74-99) mg/dL POC Glucose (mg/dL) 155 H 138 H 118 H (75-99) mg/dL 08/11/20 08/11/20 08/11/20 Range/Units 07:09 09:09 10:41 WBC (3.8-10.6) k/uL RBC (4.30-5.90) m/uL Hgb (13.0-17.5) gm/dL Hct (39.0-53.0) % RDW (11.5-15.5) % Neutrophils # (1.3-7.7) k/uL Lymphocytes # (1.0-4.8) k/uL Carbon Dioxide (22-30) mmol/L BUN (9-20) mg/dL Creatinine (0.66-1.25) mg/dL Glucose (74-99) mg/dL POC Glucose (mg/dL) 138 H 121 H 74 L (75-99) mg/dL 08/11/20 08/11/20 08/11/20 Range/Units 12:27 15:33 18:08 WBC (3.8-10.6) k/uL RBC (4.30-5.90) m/uL Hgb (13.0-17.5) gm/dL Hct (39.0-53.0) % RDW (11.5-15.5) % Neutrophils # (1.3-7.7) k/uL Lymphocytes # (1.0-4.8) k/uL Carbon Dioxide (22-30) mmol/L BUN (9-20) mg/dL Creatinine (0.66-1.25) mg/dL Glucose (74-99) mg/dL POC Glucose (mg/dL) 132 H 114 H 173 H (75-99) mg/dL 08/11/20 08/11/20 08/11/20 Range/Units 19:04 20:28 20:53 WBC (3.8-10.6) k/uL RBC (4.30-5.90) m/uL Hgb (13.0-17.5) gm/dL Hct (39.0-53.0) % RDW (11.5-15.5) % Neutrophils # (1.3-7.7) k/uL Lymphocytes # (1.0-4.8) k/uL Carbon Dioxide (22-30) mmol/L BUN (9-20) mg/dL Creatinine (0.66-1.25) mg/dL Glucose (74-99) mg/dL POC Glucose (mg/dL) 171 H 127 H 116 H (75-99) mg/dL 08/11/20 08/11/20 08/12/20 Range/Units 22:01 23:01 00:08 WBC (3.8-10.6) k/uL RBC (4.30-5.90) m/uL Hgb (13.0-17.5) gm/dL Hct (39.0-53.0) % RDW (11.5-15.5) % Neutrophils # (1.3-7.7) k/uL Lymphocytes # (1.0-4.8) k/uL Carbon Dioxide (22-30) mmol/L BUN (9-20) mg/dL Creatinine (0.66-1.25) mg/dL Glucose (74-99) mg/dL POC Glucose (mg/dL) 138 H 103 H 144 H (75-99) mg/dL 08/12/20 08/12/20 08/12/20 Range/Units 01:02 02:03 03:21 WBC (3.8-10.6) k/uL RBC (4.30-5.90) m/uL Hgb (13.0-17.5) gm/dL Hct (39.0-53.0) % RDW (11.5-15.5) % Neutrophils # (1.3-7.7) k/uL Lymphocytes # (1.0-4.8) k/uL Carbon Dioxide (22-30) mmol/L BUN (9-20) mg/dL Creatinine (0.66-1.25) mg/dL Glucose (74-99) mg/dL POC Glucose (mg/dL) 137 H 125 H 111 H (75-99) mg/dL 08/12/20 08/12/20 08/12/20 Range/Units 04:14 05:18 06:28 WBC (3.8-10.6) k/uL RBC (4.30-5.90) m/uL Hgb (13.0-17.5) gm/dL Hct (39.0-53.0) % RDW (11.5-15.5) % Neutrophils # (1.3-7.7) k/uL Lymphocytes # (1.0-4.8) k/uL Carbon Dioxide (22-30) mmol/L BUN (9-20) mg/dL Creatinine (0.66-1.25) mg/dL Glucose (74-99) mg/dL POC Glucose (mg/dL) 134 H 139 H 138 H (75-99) mg/dL 08/12/20 08/12/20 08/12/20 Range/Units 06:53 08:21 09:02 WBC (3.8-10.6) k/uL RBC (4.30-5.90) m/uL Hgb (13.0-17.5) gm/dL Hct (39.0-53.0) % RDW (11.5-15.5) % Neutrophils # (1.3-7.7) k/uL Lymphocytes # (1.0-4.8) k/uL Carbon Dioxide (22-30) mmol/L BUN (9-20) mg/dL Creatinine (0.66-1.25) mg/dL Glucose (74-99) mg/dL POC Glucose (mg/dL) 137 H 131 H 132 H (75-99) mg/dL 08/12/20 08/12/20 08/12/20 Range/Units 11:25 12:18 13:06 WBC (3.8-10.6) k/uL RBC (4.30-5.90) m/uL Hgb (13.0-17.5) gm/dL Hct (39.0-53.0) % RDW (11.5-15.5) % Neutrophils # (1.3-7.7) k/uL Lymphocytes # (1.0-4.8) k/uL Carbon Dioxide (22-30) mmol/L BUN (9-20) mg/dL Creatinine (0.66-1.25) mg/dL Glucose (74-99) mg/dL POC Glucose (mg/dL) 108 H 131 H 147 H (75-99) mg/dL 08/12/20 08/12/20 08/12/20 Range/Units 14:17 15:03 16:19 WBC (3.8-10.6) k/uL RBC (4.30-5.90) m/uL Hgb (13.0-17.5) gm/dL Hct (39.0-53.0) % RDW (11.5-15.5) % Neutrophils # (1.3-7.7) k/uL Lymphocytes # (1.0-4.8) k/uL Carbon Dioxide (22-30) mmol/L BUN (9-20) mg/dL Creatinine (0.66-1.25) mg/dL Glucose (74-99) mg/dL POC Glucose (mg/dL) 180 H 173 H 154 H (75-99) mg/dL 08/12/20 08/12/20 08/12/20 Range/Units 18:09 18:54 19:55 WBC (3.8-10.6) k/uL RBC (4.30-5.90) m/uL Hgb (13.0-17.5) gm/dL Hct (39.0-53.0) % RDW (11.5-15.5) % Neutrophils # (1.3-7.7) k/uL Lymphocytes # (1.0-4.8) k/uL Carbon Dioxide (22-30) mmol/L BUN (9-20) mg/dL Creatinine (0.66-1.25) mg/dL Glucose (74-99) mg/dL POC Glucose (mg/dL) 116 H 118 H 124 H (75-99) mg/dL 08/12/20 08/12/20 08/12/20 Range/Units 21:06 22:16 23:10 WBC (3.8-10.6) k/uL RBC (4.30-5.90) m/uL Hgb (13.0-17.5) gm/dL Hct (39.0-53.0) % RDW (11.5-15.5) % Neutrophils # (1.3-7.7) k/uL Lymphocytes # (1.0-4.8) k/uL Carbon Dioxide (22-30) mmol/L BUN (9-20) mg/dL Creatinine (0.66-1.25) mg/dL Glucose (74-99) mg/dL POC Glucose (mg/dL) 137 H 155 H 162 H (75-99) mg/dL 08/13/20 08/13/20 08/13/20 Range/Units 00:14 01:01 04:10 WBC (3.8-10.6) k/uL RBC (4.30-5.90) m/uL Hgb (13.0-17.5) gm/dL Hct (39.0-53.0) % RDW (11.5-15.5) % Neutrophils # (1.3-7.7) k/uL Lymphocytes # (1.0-4.8) k/uL Carbon Dioxide 37 H (22-30) mmol/L BUN 60 H (9-20) mg/dL Creatinine 1.47 H (0.66-1.25) mg/dL Glucose 151 H (74-99) mg/dL POC Glucose (mg/dL) 157 H 125 H (75-99) mg/dL 08/13/20 08/13/20 08/13/20 Range/Units 04:10 04:16 05:11 WBC 11.7 H (3.8-10.6) k/uL RBC 3.26 L (4.30-5.90) m/uL Hgb 10.0 L (13.0-17.5) gm/dL Hct 31.8 L (39.0-53.0) % RDW 16.8 H (11.5-15.5) % Neutrophils # 9.9 H (1.3-7.7) k/uL Lymphocytes # 0.6 L (1.0-4.8) k/uL Carbon Dioxide (22-30) mmol/L BUN (9-20) mg/dL Creatinine (0.66-1.25) mg/dL Glucose (74-99) mg/dL POC Glucose (mg/dL) 145 H 145 H (75-99) mg/dL 08/13/20 08/13/20 08/13/20 Range/Units 06:11 06:58 08:04 WBC (3.8-10.6) k/uL RBC (4.30-5.90) m/uL Hgb (13.0-17.5) gm/dL Hct (39.0-53.0) % RDW (11.5-15.5) % Neutrophils # (1.3-7.7) k/uL Lymphocytes # (1.0-4.8) k/uL Carbon Dioxide (22-30) mmol/L BUN (9-20) mg/dL Creatinine (0.66-1.25) mg/dL Glucose (74-99) mg/dL POC Glucose (mg/dL) 122 H 101 H 114 H (75-99) mg/dL 08/13/20 08/13/20 08/13/20 Range/Units 08:53 09:27 10:15 WBC (3.8-10.6) k/uL RBC (4.30-5.90) m/uL Hgb (13.0-17.5) gm/dL Hct (39.0-53.0) % RDW (11.5-15.5) % Neutrophils # (1.3-7.7) k/uL Lymphocytes # (1.0-4.8) k/uL Carbon Dioxide (22-30) mmol/L BUN (9-20) mg/dL Creatinine (0.66-1.25) mg/dL Glucose (74-99) mg/dL POC Glucose (mg/dL) 161 H 181 H 134 H (75-99) mg/dL 08/13/20 Range/Units 11:05 WBC (3.8-10.6) k/uL RBC (4.30-5.90) m/uL Hgb (13.0-17.5) gm/dL Hct (39.0-53.0) % RDW (11.5-15.5) % Neutrophils # (1.3-7.7) k/uL Lymphocytes # (1.0-4.8) k/uL Carbon Dioxide (22-30) mmol/L BUN (9-20) mg/dL Creatinine (0.66-1.25) mg/dL Glucose (74-99) mg/dL POC Glucose (mg/dL) 109 H (75-99) mg/dL Assessment and Plan Assessment: 1. CAD s/p CABG with 2v bypass, PABLO to LAD, and SVG to posterior decending coronary artery 2. Paroxysmal Atrial Fibrillation, with RVR 3. 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 Pneumatosis, Ischemic Bowel, s/p small bowel resection 5. Acute Blood Loss Anemia, post-operative, resolved 6. Pneumoperitoneum secondary to chest tubes, Resolved 7. CONNOR superimposed on CKD, stage III, Resolved 8. Hypertension, essential 9. Hyperlipidemia 10. Type II DM, uncontrolled 11. Hypothyroidism 12. Obesity, BMI 30.5 13. Hyponatremia and Hyperkalemia 14. Pulmonary edema 80 year old man with history of COPD, CKD III, HTN/HLD/CAD/DM, Obesity presented for symptomatic CAD and underwent 2v CABG with post-operative course complicated by respiratory failure secondary to COPD exacerbation, blood loss anemia, paroxysmal atrial fibrillation with RVR, and metabolic derangements. DM 2 - hold metformin - Inulin subcutaneous with sliding scale insulin coverage, check blood sugars every before meals and at bedtime, Levemir added on 07/21. - Blood sugars currently controlled, follow blood sugars closely - A1C from 06/21/2020 5.2, anticipate discharge home back on metformin which may be able to come off in the near future in the outpatient setting. Small Bowel Ischemia - surgery consult - s/p resection/anastamosis, s/p anastamosis take down and diverting ileostomy - on daptomycin/meropenem/eraxis -> infectious disease managing antibiotics - MRSA nares negative -Patient currently on TPN as per surgery recommendations. Patient also started on prokinetic, Enereg. Diet as per surgery A-fib with RVR On metoprolol 2.5 IV q6h Off cardizem gtt Patient on amiodarone drip -> transitioned to amiodarone 200 mg twice a day Eliquis held due to bleeding, now on heparin q8h for DVT PPx Heart rate control Pulmonary edema -IV Lasix as needed -Managed by realtime captioner and nephrology CONNOR on CKD stage III Baseline cr 1.4-1.5 Likely ATN Nephro on board Creatinine stable Acute hyponatremia Likely sec to renal failure Resolved Hyperkalemia Resolved Pneumoperitoneum suspect secondary to mediastinal chest tubes -Tube d/melody -Resolved. Constipation On Senokot, MiraLAX Acute blood loss anemia and thrombocytopenia, anticipated outcome of surgery - follow CBC - transfuse as indicated COPD with acute exacerbation - Pulm managing steroids - DuoNebs - on spiriva and advair at home -patient high risk for reintubation Coronary artery disease -Status post coronary artery bypass grafting -Cardiothoracic and cardiology following HTN - meds per cardiology - follow BP Hypothyroidism status post partial thyroidectomy - synthroid Morbid obesity with BMI 30.5 -Outpatient structured weight loss Chronic: ADDY Jacobs's Prognosis is guarded due to multiple active medication conditions.
[2020-08-13 12:06] LABS: Glucose,Whole Blood 98 mg/dL (75-99)
[2020-08-13] MEDS: 1: MVI, ADULT NO.4 WITH VIT K 10 ML, TRACE (CONC-1ML/DOSE) 1 ML, SODIUM ACETATE 30 MEQ, IV SCH ×5 (12:17)
[2020-08-13] MEDS: FAT EMULSION 20% 250 ML IV SCH (12:17)
[2020-08-13] MEDS ORDERED: FUROSEMIDE 10 MG/ML 4 ML VIAL IV STA (13:01)
[2020-08-13 13:23] LABS: Glucose,Whole Blood 116 mg/dL (75-99)
[2020-08-13] MEDS: ALBUMIN HUMAN 25% 50 ML in EMPTY BAG 1 BAG IVPB SCH ×2 (14:00→14:32)
[2020-08-13 14:04] LABS: Glucose,Whole Blood 152 mg/dL (75-99)
[2020-08-13 15:12] LABS: Glucose,Whole Blood 126 mg/dL (75-99)
[2020-08-13 16:12] LABS: Glucose,Whole Blood 116 mg/dL (75-99)
[2020-08-13 17:05] LABS: Glucose,Whole Blood 99 mg/dL (75-99)
--- NOTE | 2020-08-13 18:02 | PN ---
PROGRESS NOTE DATE OF SERVICE: 08/13/2020 REASON FOR FOLLOWUP: Leukocytosis, ischemic bowel and possible aneurysm. INTERVAL HISTORY: The patient is currently afebrile. The patient is seems to be slightly more awake and alert. Denies any chest pain. Occasional cough. No abdominal pain. No new symptoms. PHYSICAL EXAMINATION: Blood pressure 143/65, pulse of 93, temperature 98.6. He is 97% on 2 L nasal cannula. General description is an elderly male up in the bed in no distress. Respiratory system: Unlabored breathing with decreased intensity in breath sounds. No wheeze. Heart S1, S2. Regular rate and rhythm. ABDOMEN: Soft. No tenderness. No guarding or rigidity. LABS: Hemoglobin 10, white count 11.7, BUN of 80, creatinine 1.47. DIAGNOSTIC IMPRESSION AND PLAN: Patient with elevated white count, multifactorial. This patient did have a catheter tip positive for Staph epi and did have ischemic small bowel, status post infection. Patient is currently on daptomycin and Eraxis and has completed meropenem therapy. Monitor closely. Continue supportive care. MMODL / IJN: [id number] /
[2020-08-13 18:18] LABS: Glucose,Whole Blood 99 mg/dL (75-99)
[2020-08-13] MEDS: SODIUM CHLORIDE 0.9% 1,000 ML IV SCH (18:55)
[2020-08-13 18:56] LABS: Glucose,Whole Blood 147 mg/dL (75-99)
[2020-08-13 20:09] LABS: Glucose,Whole Blood 140 mg/dL (75-99)
[2020-08-13 21:09] LABS: Glucose,Whole Blood 123 mg/dL (75-99)
[2020-08-13 22:17] LABS: Glucose,Whole Blood 110 mg/dL (75-99)
[2020-08-13 23:05] LABS: Glucose,Whole Blood 134 mg/dL (75-99)
[2020-08-14 00:01] LABS: Glucose,Whole Blood 138 mg/dL (75-99)
[2020-08-14] MEDS: HEPARIN SODIUM,PORCINE 5,000 UNIT/ML 1 ML VIAL SQ SCH ×3 (00:02→15:19)
[2020-08-14 01:02] LABS: Glucose,Whole Blood 126 mg/dL (75-99)
[2020-08-14] MEDS: 1: MVI, ADULT NO.4 WITH VIT K 10 ML, TRACE (CONC-1ML/DOSE) 1 ML, SODIUM ACETATE 30 MEQ, IV SCH ×5 (01:55)
[2020-08-14 02:20] LABS: Glucose,Whole Blood 112 mg/dL (75-99)
[2020-08-14 03:23] LABS: Glucose,Whole Blood 139 mg/dL (75-99)
[2020-08-14 04:16] LABS: Glucose,Whole Blood 158 mg/dL (75-99)
[2020-08-14 04:30] LABS: Anisocytosis Slight; Basophils # (A) 0.1 k/uL (0-0.2); Basophils % (A) 1 %; Eosinophils # (A) 0.2 k/uL (0-0.7); Eosinophils % (A) 2 %; HCT 28.4 % (39.0-53.0); HGB 8.9 gm/dL (13.0-17.5); Hypochromasia Marked; Lymphocytes # (A) 0.5 k/uL (1.0-4.8); Lymphocytes % (A) 6 %; MCH 30.4 pg (25.0-35.0); MCHC 31.2 g/dL (31.0-37.0); MCV 97.6 fL (80.0-100.0); Macrocytosis Slight; Mean Platelet Volume 8.4; Monocytes # (A) 0.6 k/uL (0-1.0); Monocytes % (A) 6 %; Neutrophils % (A) 85 %; Platelet Count 289 k/uL (150-450); Poikilocytosis Slight; RBC 2.91 m/uL (4.30-5.90); RDW 16.8 % (11.5-15.5); WBC 9.4 k/uL (3.8-10.6)
[2020-08-14 05:02] LABS: Albumin 2.6 g/dL (3.5-5.0); Calcium 9.3 mg/dL (8.4-10.2); Magnesium 2.1 mg/dL (1.6-2.3); Total Bilirubin 1.1 mg/dL (0.2-1.3); Total Protein 5.4 g/dL (6.3-8.2)
[2020-08-14 05:16] LABS: Glucose,Whole Blood 141 mg/dL (75-99)
[2020-08-14 06:02] LABS: Glucose,Whole Blood 124 mg/dL (75-99)
--- NOTE | 2020-08-14 06:35 | XR ---
EXAMINATION TYPE: XR chest 1V portable DATE OF EXAM: 08/14/2020 CLINICAL HISTORY: Difficulty breathing progress study. Postoperative CABG. TECHNIQUE: Single AP portable semiupright view of the chest is obtained. COMPARISON: Chest x-ray from one day earlier. CT chest 2 days earlier. FINDINGS: Stable NG tube and right-sided PICC line. Redemonstration of overlying sternal wires and m ediastinal clips along with left atrial appendage clip. New overlying clip left mid thorax presumed e xternal. Stable mild cardiomegaly. Background underlying emphysematous change with bibasilar opacitie s are redemonstrated. Osseous structures are intact. IMPRESSION: Correlate for CHF exacerbation as there is mild cardiomegaly with small to moderate size bilateral pleural effusions and associated left greater than right bibasilar acute infiltrate and/or atelectasis are all redemonstrated.
--- NOTE | 2020-08-14 07:01 | P.PN ---
Subjective Progress Note Date: 08/14/20 On 08/14/2020, the patient is being seen in follow-up in the intensive care units. Overall, he remains quite weak and debilitated as the patient has undergone a prolonged ICU stay following coronary artery bypass surgery and following bowel surgery 2 for ischemic bowel. The patient is postop day #27 fo llowing double bypass surgery with PABLO to LAD and saphenous finger after 2 PDA and clipping of the left atrial appendage. The patient subsequently underwent a small bowel resection for bowel ischemia and he is postop day #21 that regard with subsequent evaluation and another exploratory laparotomy and washout of the peritoneal cavity in addition to an ileostomy with small bowel resection and the patient is postop day #12 in that regard. The patient is currently on 2 L about 2 by nasal cannula. The patient is still on TPN for nutritional support which is running at 75 mL an hour. He remains on insulin drip at 7 units an hour. Chest x-ray continues to show small to moderate-sized atelectatic changes and effusion the lung bases bilaterally. The patient is using incentive spirometer. He is calm and comfortable. Morbid 04 extremities without any limitation. No chest pain. Surgical wound site over the chest and abdominal areas dry clean and intact. The patient continues to have some few episodes of confusion/delirium. He denies having any significant shortness of breath. He is pulling approximately 500 mL an incentive spirometer. Hemodynamically stable and is not requiring any pressors for BP support. The patient's NG tube is still in place and/to low intermittent suc tion. The patient was started on Glucerna at the rate of 10 mL's an hour in combination with the TPN. Ileostomy site in the right lower quadrant is pink and output is no other 100 mL over the past 12 hours. The patient also has an abdominal wound VAC in place with minimal amount of output. Cardiac rhythm is sinus although the patient was having some episodes of atrial fibrillation earlier. A CAT scan of the chest without contrast was done 48 hours ago and showed mother says that the pleural effusion and some atelectatic changes in lung bases and some background emphysema with upper lobe predominance. No evidence of any pneumothorax. There is evidence of cholelithiasis that was seen earlier. Overall, condition is stable for now. Repeat chest x-ray from today shows bilateral pleural effusions. The patient is a PICC line in the right upper extremity. Objective - Vital Signs Vital signs: Vital Signs Temp 98.1 F 08/14/20 04:00 Pulse 112 H 08/14/20 06:00 Resp 38 H 08/14/20 06:00 BP 116/64 08/14/20 06:00 Pulse Ox 98 08/14/20 06:00 Intake & Output 08/13/20 08/13/20 08/14/20 06:59 18:59 06:59 Intake Total 541.123 4818.008 2222.601 Output Total 1245 2150 2530 Balance -321.691 -489.992 -307.399 Weight 89.6 kg 89.6 kg 89 kg Intake: IV 866 1489.6 957 Anidulafungin 100 mg In 100 Sodium Chloride 0.9% 100 ml @ 84 mls/hr IVPB DAILY [facility] Rx#:[id number] Fat Emulsion 20% 250 ml @ 20 146.6 21 20.833 mls/hr IV DAILY@ 1200 [facility] Rx#:[id number] Magnesium Sulfate-D5w Pmx 100 1 gm In Dextrose/Water 1 100ml.bag @ 100 mls/hr IVPB Q1H [facility] Rx#: [id number] Meropenem 1 gm In Sodium 100 Chloride 0.9% 100 ml @ 33 .333 mls/hr IVPB Q12H [facility] Rx#:[id number] Sodium Chloride 0.9% 1, 110 000 ml @ 20 mls/hr IV . Q24H [facility] Rx#:[id number] TPN 825 900 900 pressure bag 21 33 36 Intake, IV Titration 57.309 30.408 1065.601 Amount Insulin Regular 100 unit 57.309 30.408 43.101 In Sodium Chloride 0.9% 100 ml @ Per Protocol IV .Q0M [facility] Rx#:[id number] Sodium Acetate 30 meq 1022.5 Potassium Acetate 28 meq In Amino Acids 5 %/ Dextrose 20 % 1,000 ml @ 75 mls/hr IV .BY DURATION [facility]ADE Rx#:[id number] Tube Feeding 50 110 Other 90 90 Output: Gastric Drainage 350 200 200 Urine 895 1950 1480 Stool 850 Other: Voiding Method Indwelling Catheter Indwelling Catheter Indwelling Catheter ABP, PAP, CO, CI - Last Documented Arterial Blood Pressure 124/40 Pulmonary Artery Pressure 33/14 Cardiac Output 6.7 Cardiac Index 3.1 - Exam - Constitutional General appearance: Present: cooperative, no acute distress, obese my NG tube is in place. Output is minimal - EENT Eyes: Present: normal appearance. Absent: scleral icterus ENT: Present: hearing grossly normal - Neck Details: Neck is supple, no JVD, no lymphadenopathy. - Respiratory Details: Lung sounds with few scattered rhonchi throughout, diminished to his bilateral bases. No wheezes or crackles. Respirations are symmetrical and nonlabored. Oxygen saturation are 93% on 2 L nasal cannula. Achieving 500 mL on his incentive spirometry with much encouragement. - Cardiovascular Details: Regular rhythm and rate. S1 and S2 present, negative for S3, gallop or murmur. Sternum is stable. Heart hugger is in place. Bedside telemetry showing normal sinus rhythm heart rate 95 BPM. Knee-high ALPHONSO hose and sequential compression devices in place to his bilateral lower extremities. Right arm PICC line in place and functioning. Left radial arterial line in place and functioning. Anasarca. - Gastrointestinal Gastrointestinal Comment(s): Abdomen soft, nontender and nondistended. Hypoactive bowel sounds present in all 4 abdominal quadrants. No guarding or rigidity. No organomegaly appreciated. TPN at 75 mL per hour for nutritional support. NG tube in place to low intermittent wall suction with 300 mL of bilious drainage in the last 12 hours. Right lower quadrant ileostomy with 100 mL output in the last 8 hours. The patient also has a wound VAC over the anterior abdominal wall, and output from the wound VAC is minimal at this point in time. - Genitourinary Genitourinary Comment(s): Villafana catheter for accurate I&O. Draining clear yellow urine - Integumentary Integumentary Comment(s): Skin is warm and dry. No clubbing or cyanosis is present. Midline sternal incision is clean, dry and approximated. No drainage redness is present. Right lower extremity EVH sites are clean, dry and approximated. No drainage or redness is present. Midline abdominal incision with wound VAC dressing clean, dry and intact. No air leak present. - Neurologic Neurologic: Present: CNII-XII intact - Musculoskeletal Musculoskeletal: Present: generalized weakness, strength equal bilaterally - Psychiatric Psychiatric Comment(s): Flat affect. Psychiatric: Present: A&O x's 3 - Labs CBC & Chem 7: 08/14/20 04:05 08/14/20 04:05 Labs: Abnormal Lab Results - Last 24 Hours (Table) 08/09/20 08/09/20 08/10/20 Range/Units 22:20 23:52 01:16 RBC (4.30-5.90) m/uL Hgb (13.0-17.5) gm/dL Hct (39.0-53.0) % RDW (11.5-15.5) % Neutrophils # (1.3-7.7) k/uL Lymphocytes # (1.0-4.8) k/uL Carbon Dioxide (22-30) mmol/L BUN (9-20) mg/dL Creatinine (0.66-1.25) mg/dL Glucose (74-99) mg/dL POC Glucose (mg/dL) 109 H 125 H 125 H (75-99) mg/dL ALT (4-49) U/L Total Protein (6.3-8.2) g/dL Albumin (3.5-5.0) g/dL 08/10/20 08/10/20 08/10/20 Range/Units 01:19 03:09 05:09 RBC (4.30-5.90) m/uL Hgb (13.0-17.5) gm/dL Hct (39.0-53.0) % RDW (11.5-15.5) % Neutrophils # (1.3-7.7) k/uL Lymphocytes # (1.0-4.8) k/uL Carbon Dioxide (22-30) mmol/L BUN (9-20) mg/dL Creatinine (0.66-1.25) mg/dL Glucose (74-99) mg/dL POC Glucose (mg/dL) 153 H 131 H 114 H (75-99) mg/dL ALT (4-49) U/L Total Protein (6.3-8.2) g/dL Albumin (3.5-5.0) g/dL 08/10/20 08/10/20 08/10/20 Range/Units 07:16 09:05 10:10 RBC (4.30-5.90) m/uL Hgb (13.0-17.5) gm/dL Hct (39.0-53.0) % RDW (11.5-15.5) % Neutrophils # (1.3-7.7) k/uL Lymphocytes # (1.0-4.8) k/uL Carbon Dioxide (22-30) mmol/L BUN (9-20) mg/dL Creatinine (0.66-1.25) mg/dL Glucose (74-99) mg/dL POC Glucose (mg/dL) 166 H 153 H 146 H (75-99) mg/dL ALT (4-49) U/L Total Protein (6.3-8.2) g/dL Albumin (3.5-5.0) g/dL 08/10/20 08/10/20 08/10/20 Range/Units 11:17 15:30 17:07 RBC (4.30-5.90) m/uL Hgb (13.0-17.5) gm/dL Hct (39.0-53.0) % RDW (11.5-15.5) % Neutrophils # (1.3-7.7) k/uL Lymphocytes # (1.0-4.8) k/uL Carbon Dioxide (22-30) mmol/L BUN (9-20) mg/dL Creatinine (0.66-1.25) mg/dL Glucose (74-99) mg/dL POC Glucose (mg/dL) 132 H 107 H 199 H (75-99) mg/dL ALT (4-49) U/L Total Protein (6.3-8.2) g/dL Albumin (3.5-5.0) g/dL 08/10/20 08/10/20 08/10/20 Range/Units 18:41 20:33 22:28 RBC (4.30-5.90) m/uL Hgb (13.0-17.5) gm/dL Hct (39.0-53.0) % RDW (11.5-15.5) % Neutrophils # (1.3-7.7) k/uL Lymphocytes # (1.0-4.8) k/uL Carbon Dioxide (22-30) mmol/L BUN (9-20) mg/dL Creatinine (0.66-1.25) mg/dL Glucose (74-99) mg/dL POC Glucose (mg/dL) 181 H 120 H 147 H (75-99) mg/dL ALT (4-49) U/L Total Protein (6.3-8.2) g/dL Albumin (3.5-5.0) g/dL 08/11/20 08/11/20 08/11/20 Range/Units 00:14 01:27 04:44 RBC (4.30-5.90) m/uL Hgb (13.0-17.5) gm/dL Hct (39.0-53.0) % RDW (11.5-15.5) % Neutrophils # (1.3-7.7) k/uL Lymphocytes # (1.0-4.8) k/uL Carbon Dioxide (22-30) mmol/L BUN (9-20) mg/dL Creatinine (0.66-1.25) mg/dL Glucose (74-99) mg/dL POC Glucose (mg/dL) 155 H 138 H 118 H (75-99) mg/dL ALT (4-49) U/L Total Protein (6.3-8.2) g/dL Albumin (3.5-5.0) g/dL 08/11/20 08/11/20 08/11/20 Range/Units 07:09 09:09 10:41 RBC (4.30-5.90) m/uL Hgb (13.0-17.5) gm/dL Hct (39.0-53.0) % RDW (11.5-15.5) % Neutrophils # (1.3-7.7) k/uL Lymphocytes # (1.0-4.8) k/uL Carbon Dioxide (22-30) mmol/L BUN (9-20) mg/dL Creatinine (0.66-1.25) mg/dL Glucose (74-99) mg/dL POC Glucose (mg/dL) 138 H 121 H 74 L (75-99) mg/dL ALT (4-49) U/L Total Protein (6.3-8.2) g/dL Albumin (3.5-5.0) g/dL 08/11/20 08/11/20 08/11/20 Range/Units 12:27 15:33 18:08 RBC (4.30-5.90) m/uL Hgb (13.0-17.5) gm/dL Hct (39.0-53.0) % RDW (11.5-15.5) % Neutrophils # (1.3-7.7) k/uL Lymphocytes # (1.0-4.8) k/uL Carbon Dioxide (22-30) mmol/L BUN (9-20) mg/dL Creatinine (0.66-1.25) mg/dL Glucose (74-99) mg/dL POC Glucose (mg/dL) 132 H 114 H 173 H (75-99) mg/dL ALT (4-49) U/L Total Protein (6.3-8.2) g/dL Albumin (3.5-5.0) g/dL 08/11/20 08/11/20 08/11/20 Range/Units 19:04 20:28 20:53 RBC (4.30-5.90) m/uL Hgb (13.0-17.5) gm/dL Hct (39.0-53.0) % RDW (11.5-15.5) % Neutrophils # (1.3-7.7) k/uL Lymphocytes # (1.0-4.8) k/uL Carbon Dioxide (22-30) mmol/L BUN (9-20) mg/dL Creatinine (0.66-1.25) mg/dL Glucose (74-99) mg/dL POC Glucose (mg/dL) 171 H 127 H 116 H (75-99) mg/dL ALT (4-49) U/L Total Protein (6.3-8.2) g/dL Albumin (3.5-5.0) g/dL 08/11/20 08/11/20 08/12/20 Range/Units 22:01 23:01 00:08 RBC (4.30-5.90) m/uL Hgb (13.0-17.5) gm/dL Hct (39.0-53.0) % RDW (11.5-15.5) % Neutrophils # (1.3-7.7) k/uL Lymphocytes # (1.0-4.8) k/uL Carbon Dioxide (22-30) mmol/L BUN (9-20) mg/dL Creatinine (0.66-1.25) mg/dL Glucose (74-99) mg/dL POC Glucose (mg/dL) 138 H 103 H 144 H (75-99) mg/dL ALT (4-49) U/L Total Protein (6.3-8.2) g/dL Albumin (3.5-5.0) g/dL 08/12/20 08/12/20 08/12/20 Range/Units 01:02 02:03 03:21 RBC (4.30-5.90) m/uL Hgb (13.0-17.5) gm/dL Hct (39.0-53.0) % RDW (11.5-15.5) % Neutrophils # (1.3-7.7) k/uL Lymphocytes # (1.0-4.8) k/uL Carbon Dioxide (22-30) mmol/L BUN (9-20) mg/dL Creatinine (0.66-1.25) mg/dL Glucose (74-99) mg/dL POC Glucose (mg/dL) 137 H 125 H 111 H (75-99) mg/dL ALT (4-49) U/L Total Protein (6.3-8.2) g/dL Albumin (3.5-5.0) g/dL 08/12/20 08/12/20 08/12/20 Range/Units 04:14 05:18 06:28 RBC (4.30-5.90) m/uL Hgb (13.0-17.5) gm/dL Hct (39.0-53.0) % RDW (11.5-15.5) % Neutrophils # (1.3-7.7) k/uL Lymphocytes # (1.0-4.8) k/uL Carbon Dioxide (22-30) mmol/L BUN (9-20) mg/dL Creatinine (0.66-1.25) mg/dL Glucose (74-99) mg/dL POC Glucose (mg/dL) 134 H 139 H 138 H (75-99) mg/dL ALT (4-49) U/L Total Protein (6.3-8.2) g/dL Albumin (3.5-5.0) g/dL 08/12/20 08/12/20 08/12/20 Range/Units 06:53 08:21 09:02 RBC (4.30-5.90) m/uL Hgb (13.0-17.5) gm/dL Hct (39.0-53.0) % RDW (11.5-15.5) % Neutrophils # (1.3-7.7) k/uL Lymphocytes # (1.0-4.8) k/uL Carbon Dioxide (22-30) mmol/L BUN (9-20) mg/dL Creatinine (0.66-1.25) mg/dL Glucose (74-99) mg/dL POC Glucose (mg/dL) 137 H 131 H 132 H (75-99) mg/dL ALT (4-49) U/L Total Protein (6.3-8.2) g/dL Albumin (3.5-5.0) g/dL 08/12/20 08/12/20 08/12/20 Range/Units 11:25 12:18 13:06 RBC (4.30-5.90) m/uL Hgb (13.0-17.5) gm/dL Hct (39.0-53.0) % RDW (11.5-15.5) % Neutrophils # (1.3-7.7) k/uL Lymphocytes # (1.0-4.8) k/uL Carbon Dioxide (22-30) mmol/L BUN (9-20) mg/dL Creatinine (0.66-1.25) mg/dL Glucose (74-99) mg/dL POC Glucose (mg/dL) 108 H 131 H 147 H (75-99) mg/dL ALT (4-49) U/L Total Protein (6.3-8.2) g/dL Albumin (3.5-5.0) g/dL 08/12/20 08/12/20 08/12/20 Range/Units 14:17 15:03 16:19 RBC (4.30-5.90) m/uL Hgb (13.0-17.5) gm/dL Hct (39.0-53.0) % RDW (11.5-15.5) % Neutrophils # (1.3-7.7) k/uL Lymphocytes # (1.0-4.8) k/uL Carbon Dioxide (22-30) mmol/L BUN (9-20) mg/dL Creatinine (0.66-1.25) mg/dL Glucose (74-99) mg/dL POC Glucose (mg/dL) 180 H 173 H 154 H (75-99) mg/dL ALT (4-49) U/L Total Protein (6.3-8.2) g/dL Albumin (3.5-5.0) g/dL 08/12/20 08/12/20 08/12/20 Range/Units 18:09 18:54 19:55 RBC (4.30-5.90) m/uL Hgb (13.0-17.5) gm/dL Hct (39.0-53.0) % RDW (11.5-15.5) % Neutrophils # (1.3-7.7) k/uL Lymphocytes # (1.0-4.8) k/uL Carbon Dioxide (22-30) mmol/L BUN (9-20) mg/dL Creatinine (0.66-1.25) mg/dL Glucose (74-99) mg/dL POC Glucose (mg/dL) 116 H 118 H 124 H (75-99) mg/dL ALT (4-49) U/L Total Protein (6.3-8.2) g/dL Albumin (3.5-5.0) g/dL 08/12/20 08/12/20 08/12/20 Range/Units 21:06 22:16 23:10 RBC (4.30-5.90) m/uL Hgb (13.0-17.5) gm/dL Hct (39.0-53.0) % RDW (11.5-15.5) % Neutrophils # (1.3-7.7) k/uL Lymphocytes # (1.0-4.8) k/uL Carbon Dioxide (22-30) mmol/L BUN (9-20) mg/dL Creatinine (0.66-1.25) mg/dL Glucose (74-99) mg/dL POC Glucose (mg/dL) 137 H 155 H 162 H (75-99) mg/dL ALT (4-49) U/L Total Protein (6.3-8.2) g/dL Albumin (3.5-5.0) g/dL 08/13/20 08/13/20 08/13/20 Range/Units 00:14 01:01 04:16 RBC (4.30-5.90) m/uL Hgb (13.0-17.5) gm/dL Hct (39.0-53.0) % RDW (11.5-15.5) % Neutrophils # (1.3-7.7) k/uL Lymphocytes # (1.0-4.8) k/uL Carbon Dioxide (22-30) mmol/L BUN (9-20) mg/dL Creatinine (0.66-1.25) mg/dL Glucose (74-99) mg/dL POC Glucose (mg/dL) 157 H 125 H 145 H (75-99) mg/dL ALT (4-49) U/L Total Protein (6.3-8.2) g/dL Albumin (3.5-5.0) g/dL 08/13/20 08/13/20 08/13/20 Range/Units 05:11 06:11 06:58 RBC (4.30-5.90) m/uL Hgb (13.0-17.5) gm/dL Hct (39.0-53.0) % RDW (11.5-15.5) % Neutrophils # (1.3-7.7) k/uL Lymphocytes # (1.0-4.8) k/uL Carbon Dioxide (22-30) mmol/L BUN (9-20) mg/dL Creatinine (0.66-1.25) mg/dL Glucose (74-99) mg/dL POC Glucose (mg/dL) 145 H 122 H 101 H (75-99) mg/dL ALT (4-49) U/L Total Protein (6.3-8.2) g/dL Albumin (3.5-5.0) g/dL 08/13/20 08/13/20 08/13/20 Range/Units 08:04 08:53 09:27 RBC (4.30-5.90) m/uL Hgb (13.0-17.5) gm/dL Hct (39.0-53.0) % RDW (11.5-15.5) % Neutrophils # (1.3-7.7) k/uL Lymphocytes # (1.0-4.8) k/uL Carbon Dioxide (22-30) mmol/L BUN (9-20) mg/dL Creatinine (0.66-1.25) mg/dL Glucose (74-99) mg/dL POC Glucose (mg/dL) 114 H 161 H 181 H (75-99) mg/dL ALT (4-49) U/L Total Protein (6.3-8.2) g/dL Albumin (3.5-5.0) g/dL 08/13/20 08/13/20 08/13/20 Range/Units 10:15 11:05 13:12 RBC (4.30-5.90) m/uL Hgb (13.0-17.5) gm/dL Hct (39.0-53.0) % RDW (11.5-15.5) % Neutrophils # (1.3-7.7) k/uL Lymphocytes # (1.0-4.8) k/uL Carbon Dioxide (22-30) mmol/L BUN (9-20) mg/dL Creatinine (0.66-1.25) mg/dL Glucose (74-99) mg/dL POC Glucose (mg/dL) 134 H 109 H 116 H (75-99) mg/dL ALT (4-49) U/L Total Protein (6.3-8.2) g/dL Albumin (3.5-5.0) g/dL 08/13/20 08/13/20 08/13/20 Range/Units 14:03 15:00 16:00 RBC (4.30-5.90) m/uL Hgb (13.0-17.5) gm/dL Hct (39.0-53.0) % RDW (11.5-15.5) % Neutrophils # (1.3-7.7) k/uL Lymphocytes # (1.0-4.8) k/uL Carbon Dioxide (22-30) mmol/L BUN (9-20) mg/dL Creatinine (0.66-1.25) mg/dL Glucose (74-99) mg/dL POC Glucose (mg/dL) 152 H 126 H 116 H (75-99) mg/dL ALT (4-49) U/L Total Protein (6.3-8.2) g/dL Albumin (3.5-5.0) g/dL 12/08/13/20 08/13/20 Range/Units 18:55 20:03 21:07 RBC (4.30-5.90) m/uL Hgb (13.0-17.5) gm/dL Hct (39.0-53.0) % RDW (11.5-15.5) % Neutrophils # (1.3-7.7) k/uL Lymphocytes # (1.0-4.8) k/uL Carbon Dioxide (22-30) mmol/L BUN (9-20) mg/dL Creatinine (0.66-1.25) mg/dL Glucose (74-99) mg/dL POC Glucose (mg/dL) 147 H 140 H 123 H (75-99) mg/dL ALT (4-49) U/L Total Protein (6.3-8.2) g/dL Albumin (3.5-5.0) g/dL 08/13/20 08/13/20 08/13/20 Range/Units 22:03 23:04 23:59 RBC (4.30-5.90) m/uL Hgb (13.0-17.5) gm/dL Hct (39.0-53.0) % RDW (11.5-15.5) % Neutrophils # (1.3-7.7) k/uL Lymphocytes # (1.0-4.8) k/uL Carbon Dioxide (22-30) mmol/L BUN (9-20) mg/dL Creatinine (0.66-1.25) mg/dL Glucose (74-99) mg/dL POC Glucose (mg/dL) 110 H 134 H 138 H (75-99) mg/dL ALT (4-49) U/L Total Protein (6.3-8.2) g/dL Albumin (3.5-5.0) g/dL 08/14/20 08/14/20 08/14/20 Range/Units 01:01 01:59 03:21 RBC (4.30-5.90) m/uL Hgb (13.0-17.5) gm/dL Hct (39.0-53.0) % RDW (11.5-15.5) % Neutrophils # (1.3-7.7) k/uL Lymphocytes # (1.0-4.8) k/uL Carbon Dioxide (22-30) mmol/L BUN (9-20) mg/dL Creatinine (0.66-1.25) mg/dL Glucose (74-99) mg/dL POC Glucose (mg/dL) 126 H 112 H 139 H (75-99) mg/dL ALT (4-49) U/L Total Protein (6.3-8.2) g/dL Albumin (3.5-5.0) g/dL 08/14/20 08/14/20 08/14/20 Range/Units 04:05 04:05 04:14 RBC 2.91 L (4.30-5.90) m/uL Hgb 8.9 L (13.0-17.5) gm/dL Hct 28.4 L (39.0-53.0) % RDW 16.8 H (11.5-15.5) % Neutrophils # 8.0 H (1.3-7.7) k/uL Lymphocytes # 0.5 L (1.0-4.8) k/uL Carbon Dioxide 37 H (22-30) mmol/L BUN 58 H (9-20) mg/dL Creatinine 1.50 H (0.66-1.25) mg/dL Glucose 159 H (74-99) mg/dL POC Glucose (mg/dL) 158 H (75-99) mg/dL ALT 50 H (4-49) U/L Total Protein 5.4 L (6.3-8.2) g/dL Albumin 2.6 L (3.5-5.0) g/dL 08/14/20 08/14/20 Range/Units 05:14 06:00 RBC (4.30-5.90) m/uL Hgb (13.0-17.5) gm/dL Hct (39.0-53.0) % RDW (11.5-15.5) % Neutrophils # (1.3-7.7) k/uL Lymphocytes # (1.0-4.8) k/uL Carbon Dioxide (22-30) mmol/L BUN (9-20) mg/dL Creatinine (0.66-1.25) mg/dL Glucose (74-99) mg/dL POC Glucose (mg/dL) 141 H 124 H (75-99) mg/dL ALT (4-49) U/L Total Protein (6.3-8.2) g/dL Albumin (3.5-5.0) g/dL Assessment and Plan Plan: 1 Symptomatic coronary artery disease, status post two-vessel coronary artery bypass grafting with PABLO to the LAD, SVG to the PDA on 07/18/2020 2 Postoperative atrial fibrillation with rapid ventricular response , back and forth between sinus and atrial fibrillation and the patient is on Amiodarone and metoprolol 25 mg by mouth 3 times a day. 3 History of coronary artery disease with previous stent placement 4 Intraperitoneal hemorrhage status post exploratory laparotomy, washout of peritoneal cavity and ileostomy on 08/02/2020. 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 9 Acute on chronic kidney disease stage III at baseline creatinine is 1.5 10 Diabetes mellitus type 2, currently on insulin drip running at 4 units an hour 11 Postoperative acute blood loss anemia, expected outcome of open heart surgery , Current hemoglobin is stable 12 History of hypertension 13 History of hyperlipidemia 14 Positive sputum culture for Pseudomonas 15 Postoperative prolonged mechanical ventilation, extubated currently on 2 L of oxygen by nasal cannula 16 Generalized debility and overall muscle weakness secondary to above Plan Encouraged use of incentive spirometer Pulmonary toileting and will consider a therapeutic thoracentesis at a later stage Keep metoprolol and aspirin for now Continue amiodarone regarding the atrial fibrillation prophylaxis the current rhythm is atrial fibrillation. Rate is controlled for now and the patient started on Keep NGT in place and the patient was started on Glucerna at the rate of 10 mL an hour Continue TPN for nutritional support Monitor the output from the ileostomy site Insulin drip at the rate of 4 units an hour Continue the current antibiotic coverage including a combination of IV daptomycin and atelectasis. The patient had a positive sputum culture for Pseudomonas on 07/24/2020 and a repeat sputum from 08/03/2020 showed Radha albicans. Blood cultures of been negative for any microbial growth. Meropenem has been discontinued. Physical therapy is an progress and the patient is able to sit up at the edge of the bed
[2020-08-14 07:05] LABS: Glucose,Whole Blood 120 mg/dL (75-99)
[2020-08-14] MEDS: METOPROLOL TARTRATE 25 MG TAB PO SCH ×2 (07:05→15:19)
[2020-08-14] MEDS: ACETYLCYSTEINE 800 MG/4 ML VIAL INHALATION SCH ×3 (07:11→20:13)
[2020-08-14] MEDS: BUDESONIDE 1 MG/2 ML NEBU INHALATION SCH ×2 (07:11→20:14)
[2020-08-14] MEDS: IPRATROPIUM-ALBUTEROL 3 ML NEB INHALATION SCH ×4 (07:11→20:14)
[2020-08-14] MEDS: FORMOTEROL FUMARATE 20 MCG/2 ML NEBU INHALATION SCH ×2 (07:11→20:09)
[2020-08-14 08:42] LABS: Glucose,Whole Blood 110 mg/dL (75-99)
[2020-08-14] MEDS: ALVIMOPAN 12 MG CAPSULE PO SCH ×2 (09:00→20:15)
[2020-08-14] MEDS: ANIDULAFUNGIN 100 MG in SODIUM CHLORIDE 0.9% 100 ML IVPB SCH (09:00)
[2020-08-14] MEDS: AMIODARONE 200 MG TAB PO SCH ×2 (09:00→20:15)
[2020-08-14] MEDS: PANTOPRAZOLE 40 MG/10 ML VIAL IVP SCH ×2 (09:00→20:15)
[2020-08-14] MEDS: ASPIRIN 81 MG PO SCH (09:00)
[2020-08-14] MEDS: LEVOTHYROXINE IVP 100 MCG/5 ML VIAL IV SCH (09:00)
[2020-08-14 09:26] LABS: Glucose,Whole Blood 120 mg/dL (75-99)
[2020-08-14] MEDS ORDERED: FUROSEMIDE 10 MG/ML 4 ML VIAL IV STA (09:30)
[2020-08-14] MEDS ORDERED: ALBUMIN HUMAN 25% 50 ML in EMPTY BAG 1 BAG IVPB ONE (09:30)
--- NOTE | 2020-08-14 09:44 | P.PN ---
Subjective Progress Note Date: 08/14/20 Principal diagnosis: Symptomatic triple-vessel coronary artery disease, mild left ventricular dysfunction. Past medical history significant for hypertension, hyperlipidemia, chronic obstructive pulmonary disease with preoperative FEV1 of 53% of predicted value, coronary artery disease with previous stenting to his right coronary artery in 2002, hypothyroid status post partial thyroidectomy, previous tobacco dependence quit smoking 20 years ago, type 2 diabetes mellitus with a preoperative hemoglobin A1c of 5.2%, and chronic kidney disease stage III with a baseline creatinine of 1.4-1.5, family history of premature coronary artery disease with a brother having a CABG at less than 50 years of age. POD #27 double coronary artery bypass grafting using the left internal mammary artery to left anterior descending coronary artery, a reverse greater saphenous vein graft from the aorta to the posterior descending coronary artery. Exclusion of the left atrial appendage using a 35 mm Atriclip, endoscopic harvesting of the right greater saphenous vein, graft flow measurement using the [employer] system, intraoperative transesophageal echocardiogram and epi-aortic scanning. Postoperative acute blood loss anemia, an expected outcome from hemodilution and cardiopulmonary bypass. Postoperative paroxysmal atrial fibrillation, unexpected. Postoperative pneumoperitoneum, unexpected. Acute on chronic kidney disease secondary to acute tubular necrosis. Pneumatosis of the small bowel. POD #21 ischemic bowel, small bowel resection. Prolonged mechanical ventilation, unexpected. Acute hypoxic respiratory failure requiring reintubation, unexpected. Postoperative hypotension requiring initiation of norepinephrine drip, unexpected, resolved. Acute abdomen, intraperitoneal hemorrhage. Postoperative day #12 exploratory laparotomy, washout of peritoneal cavity, ileostomy with small bowel resection. The patient was seen in follow-up today 08/14/2020 at his bedside in the intensive care unit. The patient is currently resting in bed with his head elevated, opens his eyes easily with verbal stimuli, answering questions appropriately, is oriented 3 at this time and is moving all 4 extremities appropriately with verbal stimuli. Currently denies any complaints of pain or shortness of breath at this time. Oxygen saturations are 97% on 2 L nasal cannula and he is achieving 500 mL on his incentive spirometry with encouragement. He does have a strong loose productive cough with whitish thin sputum. He remains hemodynamically stable and is currently on no inotropic or pressor support. He is hemodynamically stable and is currently on no inotropic or pressor support. Bedside telemetry is showing atrial fibrillation heart rate 103 BPM. The patient's bedside nurse from [facility] reports that he has been mostly normal sinus rhythm throughout the night. NG tube remains in place with Glucerna tube feedings infusing at 10 mL per hour. No residuals in the last 12 hours from the NG tube. Right lower quadrant abdominal ileostomy with pink stoma, 650 mL of light brown drainage from the ileostomy in the last 12 hours. He remains afebrile the last 24 hours. Lab results this morning show a WBC count 9.4, hemoglobin 8.9, hematocrit 28.4, platelets 289, BUN 58 and creatinine 1.50. Midline abdominal incision with wound VAC in place, dressing is clean, dry and intact. Right arm PICC line remains in place with TPN infusing at 75 mL per hour for nutritional support. Objective - Vital Signs Vital signs: Vital Signs Temp 98.1 F 08/14/20 04:00 Pulse 99 08/14/20 07:31 Resp 37 H 08/14/20 07:00 BP 135/77 08/14/20 07:00 Pulse Ox 93 L 08/14/20 07:00 Intake & Output 08/13/20 08/14/20 08/14/20 18:59 06:59 18:59 Intake Total 4389.873 4153.601 98.667 Output Total 2150 2530 100 Balance -489.992 -307.399 -1.333 Weight 89.6 kg 89 kg Intake: IV 1489.6 957 78 Anidulafungin 100 mg In 100 Sodium Chloride 0.9% 100 ml @ 84 mls/hr IVPB DAILY [facility] Rx#:[id number] Fat Emulsion 20% 250 ml @ 146.6 21 20.833 mls/hr IV DAILY@ 1200 [facility] Rx#:[id number] Magnesium Sulfate-D5w Pmx 100 1 gm In Dextrose/Water 1 100ml.bag @ 100 mls/hr IVPB Q1H [facility] Rx#: [id number] Meropenem 1 gm In Sodium 100 Chloride 0.9% 100 ml @ 33 .333 mls/hr IVPB Q12H [facility] Rx#:[id number] Sodium Chloride 0.9% 1, 110 000 ml @ 20 mls/hr IV . Q24H [facility] Rx#:[id number] TPN 900 900 75 pressure bag 33 36 3 Intake, IV Titration 30.408 1065.601 10.667 Amount Insulin Regular 100 unit 30.408 43.101 10.667 In Sodium Chloride 0.9% 100 ml @ Per Protocol IV .Q0M [facility] Rx#:[id number] Sodium Acetate 30 meq 1022.5 Potassium Acetate 28 meq In Amino Acids 5 %/ Dextrose 20 % 1,000 ml @ 75 mls/hr IV .BY DURATION [facility] Rx#:[id number] Tube Feeding 50 110 10 Other 90 90 Output: Gastric Drainage 200 200 Urine 1950 1480 100 Stool 850 Other: Voiding Method Indwelling Catheter Indwelling Catheter ABP, PAP, CO, CI - Last Documented Arterial Blood Pressure 124/40 Pulmonary Artery Pressure 33/14 Cardiac Output 6.7 Cardiac Index 3.1 - Constitutional General appearance: Present: average body habitus, cooperative, no acute distress - EENT Eyes: Present: normal appearance. Absent: scleral icterus - Neck Details: Neck is supple, no JVD, no lymphadenopathy. - Respiratory Details: Lung sounds with few scattered rhonchi throughout, diminished to his bilateral bases. No wheezes, or crackles. Respirations are symmetrical and nonlabored. Oxygen saturation are 97% on 2 L nasal cannula. Achieving 500 mL on its intendant spirometry with much encouragement. - Cardiovascular Details: Irregular rhythm with tachycardic rate. S1 and S2 present, negative for S3, gallop or murmur. Sternum is stable. Bedside telemetry showing atrial fibrillation heart rate 103 BPM. Heart hugger is in place. Knee-high ALPHONSO hose and sequential compression devices in place was bilateral lower extremities. L eft radial arterial line in place with dampened waveform at this time. Right arm PICC line in place and functioning. Anasarca, improving - Gastrointestinal Gastrointestinal Comment(s): Abdomen is soft, nontender and nondistended. Hypoactive bowel sounds present in all 4 abdominal quadrants. No guarding or rigidity. No organomegaly appreciated. Right lower quadrant ileostomy with 650 mL output in the last 8 hours of light brown drainage. TPN at 75 mL per hour for nutritional support per right arm PICC line. NG tube in place with Glucerna tube feeding infusing at 10 mL per hour, no residuals in the last 12 hours. - Genitourinary Genitourinary Comment(s): Villafana catheter for accurate I&O. Draining clear yellow urine. 730 mL output in the last 8 hours. - Integumentary Integumentary Comment(s): Skin is warm and dry. No clubbing or cyanosis is present. Midline sternal incision is clean, dry and approximated. No drainage or redness present. Right lower extremity EVH sites are clean, dry and approximated. No drainage or redness is present. Midline abdominal incision with wound VAC in place, no air leak is present. Dressing is clean, dry and intact. - Neurologic Neurologic: Present: CNII-XII intact. Absent: focal deficits - Musculoskeletal Musculoskeletal: Present: generalized weakness, strength equal bilaterally - Psychiatric Psychiatric: Present: A&O x's 3 - Allied health notes Allied health notes reviewed: nursing - Labs CBC & Chem 7: 08/14/20 04:05 08/14/20 04:05 Labs: Abnormal Lab Results - Last 24 Hours (Table) 08/09/20 08/09/20 08/10/20 Range/Units 22:20 23:52 01:16 RBC (4.30-5.90) m/uL Hgb (13.0-17.5) gm/dL Hct (39.0-53.0) % RDW (11.5-15.5) % Neutrophils # (1.3-7.7) k/uL Lymphocytes # (1.0-4.8) k/uL Carbon Dioxide (22-30) mmol/L BUN (9-20) mg/dL Creatinine (0.66-1.25) mg/dL Glucose (74-99) mg/dL POC Glucose (mg/dL) 109 H 125 H 125 H (75-99) mg/dL ALT (4-49) U/L Total Protein (6.3-8.2) g/dL Albumin (3.5-5.0) g/dL 08/10/20 08/10/20 08/10/20 Range/Units 01:19 03:09 05:09 RBC (4.30-5.90) m/uL Hgb (13.0-17.5) gm/dL Hct (39.0-53.0) % RDW (11.5-15.5) % Neutrophils # (1.3-7.7) k/uL Lymphocytes # (1.0-4.8) k/uL Carbon Dioxide (22-30) mmol/L BUN (9-20) mg/dL Creatinine (0.66-1.25) mg/dL Glucose (74-99) mg/dL POC Glucose (mg/dL) 153 H 131 H 114 H (75-99) mg/dL ALT (4-49) U/L Total Protein (6.3-8.2) g/dL Albumin (3.5-5.0) g/dL 08/10/20 08/10/20 08/10/20 Range/Units 07:16 09:05 10:10 RBC (4.30-5.90) m/uL Hgb (13.0-17.5) gm/dL Hct (39.0-53.0) % RDW (11.5-15.5) % Neutrophils # (1.3-7.7) k/uL Lymphocytes # (1.0-4.8) k/uL Carbon Dioxide (22-30) mmol/L BUN (9-20) mg/dL Creatinine (0.66-1.25) mg/dL Glucose (74-99) mg/dL POC Glucose (mg/dL) 166 H 153 H 146 H (75-99) mg/dL ALT (4-49) U/L Total Protein (6.3-8.2) g/dL Albumin (3.5-5.0) g/dL 08/10/20 08/10/20 08/10/20 Range/Units 11:17 15:30 17:07 RBC (4.30-5.90) m/uL Hgb (13.0-17.5) gm/dL Hct (39.0-53.0) % RDW (11.5-15.5) % Neutrophils # (1.3-7.7) k/uL Lymphocytes # (1.0-4.8) k/uL Carbon Dioxide (22-30) mmol/L BUN (9-20) mg/dL Creatinine (0.66-1.25) mg/dL Glucose (74-99) mg/dL POC Glucose (mg/dL) 132 H 107 H 199 H (75-99) mg/dL ALT (4-49) U/L Total Protein (6.3-8.2) g/dL Albumin (3.5-5.0) g/dL 08/10/20 08/10/20 08/10/20 Range/Units 18:41 20:33 22:28 RBC (4.30-5.90) m/uL Hgb (13.0-17.5) gm/dL Hct (39.0-53.0) % RDW (11.5-15.5) % Neutrophils # (1.3-7.7) k/uL Lymphocytes # (1.0-4.8) k/uL Carbon Dioxide (22-30) mmol/L BUN (9-20) mg/dL Creatinine (0.66-1.25) mg/dL Glucose (74-99) mg/dL POC Glucose (mg/dL) 181 H 120 H 147 H (75-99) mg/dL ALT (4-49) U/L Total Protein (6.3-8.2) g/dL Albumin (3.5-5.0) g/dL 08/11/20 08/11/20 08/11/20 Range/Units 00:14 01:27 04:44 RBC (4.30-5.90) m/uL Hgb (13.0-17.5) gm/dL Hct (39.0-53.0) % RDW (11.5-15.5) % Neutrophils # (1.3-7.7) k/uL Lymphocytes # (1.0-4.8) k/uL Carbon Dioxide (22-30) mmol/L BUN (9-20) mg/dL Creatinine (0.66-1.25) mg/dL Glucose (74-99) mg/dL POC Glucose (mg/dL) 155 H 138 H 118 H (75-99) mg/dL ALT (4-49) U/L Total Protein (6.3-8.2) g/dL Albumin (3.5-5.0) g/dL 08/11/20 08/11/20 08/11/20 Range/Units 07:09 09:09 10:41 RBC (4.30-5.90) m/uL Hgb (13.0-17.5) gm/dL Hct (39.0-53.0) % RDW (11.5-15.5) % Neutrophils # (1.3-7.7) k/uL Lymphocytes # (1.0-4.8) k/uL Carbon Dioxide (22-30) mmol/L BUN (9-20) mg/dL Creatinine (0.66-1.25) mg/dL Glucose (74-99) mg/dL POC Glucose (mg/dL) 138 H 121 H 74 L (75-99) mg/dL ALT (4-49) U/L Total Protein (6.3-8.2) g/dL Albumin (3.5-5.0) g/dL 08/11/20 08/11/20 08/11/20 Range/Units 12:27 15:33 18:08 RBC (4.30-5.90) m/uL Hgb (13.0-17.5) gm/dL Hct (39.0-53.0) % RDW (11.5-15.5) % Neutrophils # (1.3-7.7) k/uL Lymphocytes # (1.0-4.8) k/uL Carbon Dioxide (22-30) mmol/L BUN (9-20) mg/dL Creatinine (0.66-1.25) mg/dL Glucose (74-99) mg/dL POC Glucose (mg/dL) 132 H 114 H 173 H (75-99) mg/dL ALT (4-49) U/L Total Protein (6.3-8.2) g/dL Albumin (3.5-5.0) g/dL 08/11/20 08/11/20 08/11/20 Range/Units 19:04 20:28 20:53 RBC (4.30-5.90) m/uL Hgb (13.0-17.5) gm/dL Hct (39.0-53.0) % RDW (11.5-15.5) % Neutrophils # (1.3-7.7) k/uL Lymphocytes # (1.0-4.8) k/uL Carbon Dioxide (22-30) mmol/L BUN (9-20) mg/dL Creatinine (0.66-1.25) mg/dL Glucose (74-99) mg/dL POC Glucose (mg/dL) 171 H 127 H 116 H (75-99) mg/dL ALT (4-49) U/L Total Protein (6.3-8.2) g/dL Albumin (3.5-5.0) g/dL 08/11/20 08/11/20 08/12/20 Range/Units 22:01 23:01 00:08 RBC (4.30-5.90) m/uL Hgb (13.0-17.5) gm/dL Hct (39.0-53.0) % RDW (11.5-15.5) % Neutrophils # (1.3-7.7) k/uL Lymphocytes # (1.0-4.8) k/uL Carbon Dioxide (22-30) mmol/L BUN (9-20) mg/dL Creatinine (0.66-1.25) mg/dL Glucose (74-99) mg/dL POC Glucose (mg/dL) 138 H 103 H 144 H (75-99) mg/dL ALT (4-49) U/L Total Protein (6.3-8.2) g/dL Albumin (3.5-5.0) g/dL 08/12/20 08/12/20 08/12/20 Range/Units 01:02 02:03 03:21 RBC (4.30-5.90) m/uL Hgb (13.0-17.5) gm/dL Hct (39.0-53.0) % RDW (11.5-15.5) % Neutrophils # (1.3-7.7) k/uL Lymphocytes # (1.0-4.8) k/uL Carbon Dioxide (22-30) mmol/L BUN (9-20) mg/dL Creatinine (0.66-1.25) mg/dL Glucose (74-99) mg/dL POC Glucose (mg/dL) 137 H 125 H 111 H (75-99) mg/dL ALT (4-49) U/L Total Protein (6.3-8.2) g/dL Albumin (3.5-5.0) g/dL 08/12/20 08/12/20 08/12/20 Range/Units 04:14 05:18 06:28 RBC (4.30-5.90) m/uL Hgb (13.0-17.5) gm/dL Hct (39.0-53.0) % RDW (11.5-15.5) % Neutrophils # (1.3-7.7) k/uL Lymphocytes # (1.0-4.8) k/uL Carbon Dioxide (22-30) mmol/L BUN (9-20) mg/dL Creatinine (0.66-1.25) mg/dL Glucose (74-99) mg/dL POC Glucose (mg/dL) 134 H 139 H 138 H (75-99) mg/dL ALT (4-49) U/L Total Protein (6.3-8.2) g/dL Albumin (3.5-5.0) g/dL 08/12/20 08/12/20 08/12/20 Range/Units 06:53 08:21 09:02 RBC (4.30-5.90) m/uL Hgb (13.0-17.5) gm/dL Hct (39.0-53.0) % RDW (11.5-15.5) % Neutrophils # (1.3-7.7) k/uL Lymphocytes # (1.0-4.8) k/uL Carbon Dioxide (22-30) mmol/L BUN (9-20) mg/dL Creatinine (0.66-1.25) mg/dL Glucose (74-99) mg/dL POC Glucose (mg/dL) 137 H 131 H 132 H (75-99) mg/dL ALT (4-49) U/L Total Protein (6.3-8.2) g/dL Albumin (3.5-5.0) g/dL 08/12/20 08/12/20 08/12/20 Range/Units 11:25 12:18 13:06 RBC (4.30-5.90) m/uL Hgb (13.0-17.5) gm/dL Hct (39.0-53.0) % RDW (11.5-15.5) % Neutrophils # (1.3-7.7) k/uL Lymphocytes # (1.0-4.8) k/uL Carbon Dioxide (22-30) mmol/L BUN (9-20) mg/dL Creatinine (0.66-1.25) mg/dL Glucose (74-99) mg/dL POC Glucose (mg/dL) 108 H 131 H 147 H (75-99) mg/dL ALT (4-49) U/L Total Protein (6.3-8.2) g/dL Albumin (3.5-5.0) g/dL 08/12/20 08/12/20 08/12/20 Range/Units 14:17 15:03 16:19 RBC (4.30-5.90) m/uL Hgb (13.0-17.5) gm/dL Hct (39.0-53.0) % RDW (11.5-15.5) % Neutrophils # (1.3-7.7) k/uL Lymphocytes # (1.0-4.8) k/uL Carbon Dioxide (22-30) mmol/L BUN (9-20) mg/dL Creatinine (0.66-1.25) mg/dL Glucose (74-99) mg/dL POC Glucose (mg/dL) 180 H 173 H 154 H (75-99) mg/dL ALT (4-49) U/L Total Protein (6.3-8.2) g/dL Albumin (3.5-5.0) g/dL 08/12/20 08/12/20 08/12/20 Range/Units 18:09 18:54 19:55 RBC (4.30-5.90) m/uL Hgb (13.0-17.5) gm/dL Hct (39.0-53.0) % RDW (11.5-15.5) % Neutrophils # (1.3-7.7) k/uL Lymphocytes # (1.0-4.8) k/uL Carbon Dioxide (22-30) mmol/L BUN (9-20) mg/dL Creatinine (0.66-1.25) mg/dL Glucose (74-99) mg/dL POC Glucose (mg/dL) 116 H 118 H 124 H (75-99) mg/dL ALT (4-49) U/L Total Protein (6.3-8.2) g/dL Albumin (3.5-5.0) g/dL 08/12/20 08/12/20 08/12/20 Range/Units 21:06 22:16 23:10 RBC (4.30-5.90) m/uL Hgb (13.0-17.5) gm/dL Hct (39.0-53.0) % RDW (11.5-15.5) % Neutrophils # (1.3-7.7) k/uL Lymphocytes # (1.0-4.8) k/uL Carbon Dioxide (22-30) mmol/L BUN (9-20) mg/dL Creatinine (0.66-1.25) mg/dL Glucose (74-99) mg/dL POC Glucose (mg/dL) 137 H 155 H 162 H (75-99) mg/dL ALT (4-49) U/L Total Protein (6.3-8.2) g/dL Albumin (3.5-5.0) g/dL 08/13/20 08/13/20 08/13/20 Range/Units 00:14 01:01 04:16 RBC (4.30-5.90) m/uL Hgb (13.0-17.5) gm/dL Hct (39.0-53.0) % RDW (11.5-15.5) % Neutrophils # (1.3-7.7) k/uL Lymphocytes # (1.0-4.8) k/uL Carbon Dioxide (22-30) mmol/L BUN (9-20) mg/dL Creatinine (0.66-1.25) mg/dL Glucose (74-99) mg/dL POC Glucose (mg/dL) 157 H 125 H 145 H (75-99) mg/dL ALT (4-49) U/L Total Protein (6.3-8.2) g/dL Albumin (3.5-5.0) g/dL 08/13/20 08/13/20 08/13/20 Range/Units 05:11 06:11 06:58 RBC (4.30-5.90) m/uL Hgb (13.0-17.5) gm/dL Hct (39.0-53.0) % RDW (11.5-15.5) % Neutrophils # (1.3-7.7) k/uL Lymphocytes # (1.0-4.8) k/uL Carbon Dioxide (22-30) mmol/L BUN (9-20) mg/dL Creatinine (0.66-1.25) mg/dL Glucose (74-99) mg/dL POC Glucose (mg/dL) 145 H 122 H 101 H (75-99) mg/dL ALT (4-49) U/L Total Protein (6.3-8.2) g/dL Albumin (3.5-5.0) g/dL 08/13/20 08/13/20 08/13/20 Range/Units 08:04 08:53 09:27 RBC (4.30-5.90) m/uL Hgb (13.0-17.5) gm/dL Hct (39.0-53.0) % RDW (11.5-15.5) % Neutrophils # (1.3-7.7) k/uL Lymphocytes # (1.0-4.8) k/uL Carbon Dioxide (22-30) mmol/L BUN (9-20) mg/dL Creatinine (0.66-1.25) mg/dL Glucose (74-99) mg/dL POC Glucose (mg/dL) 114 H 161 H 181 H (75-99) mg/dL ALT (4-49) U/L Total Protein (6.3-8.2) g/dL Albumin (3.5-5.0) g/dL 08/13/20 08/13/20 08/13/20 Range/Units 10:15 11:05 13:12 RBC (4.30-5.90) m/uL Hgb (13.0-17.5) gm/dL Hct (39.0-53.0) % RDW (11.5-15.5) % Neutrophils # (1.3-7.7) k/uL Lymphocytes # (1.0-4.8) k/uL Carbon Dioxide (22-30) mmol/L BUN (9-20) mg/dL Creatinine (0.66-1.25) mg/dL Glucose (74-99) mg/dL POC Glucose (mg/dL) 134 H 109 H 116 H (75-99) mg/dL ALT (4-49) U/L Total Protein (6.3-8.2) g/dL Albumin (3.5-5.0) g/dL 08/13/20 08/13/20 08/13/20 Range/Units 14:03 15:00 16:00 RBC (4.30-5.90) m/uL Hgb (13.0-17.5) gm/dL Hct (39.0-53.0) % RDW (11.5-15.5) % Neutrophils # (1.3-7.7) k/uL Lymphocytes # (1.0-4.8) k/uL Carbon Dioxide (22-30) mmol/L BUN (9-20) mg/dL Creatinine (0.66-1.25) mg/dL Glucose (74-99) mg/dL POC Glucose (mg/dL) 152 H 126 H 116 H (75-99) mg/dL ALT (4-49) U/L Total Protein (6.3-8.2) g/dL Albumin (3.5-5.0) g/dL 08/13/20 08/13/20 08/13/20 Range/Units 18:55 20:03 21:07 RBC (4.30-5.90) m/uL Hgb (13.0-17.5) gm/dL Hct (39.0-53.0) % RDW (11.5-15.5) % Neutrophils # (1.3-7.7) k/uL Lymphocytes # (1.0-4.8) k/uL Carbon Dioxide (22-30) mmol/L BUN (9-20) mg/dL Creatinine (0.66-1.25) mg/dL Glucose (74-99) mg/dL POC Glucose (mg/dL) 147 H 140 H 123 H (75-99) mg/dL ALT (4-49) U/L Total Protein (6.3-8.2) g/dL Albumin (3.5-5.0) g/dL 08/13/20 08/13/20 08/13/20 Range/Units 22:03 23:04 23:59 RBC (4.30-5.90) m/uL Hgb (13.0-17.5) gm/dL Hct (39.0-53.0) % RDW (11.5-15.5) % Neutrophils # (1.3-7.7) k/uL Lymphocytes # (1.0-4.8) k/uL Carbon Dioxide (22-30) mmol/L BUN (9-20) mg/dL Creatinine (0.66-1.25) mg/dL Glucose (74-99) mg/dL POC Glucose (mg/dL) 110 H 134 H 138 H (75-99) mg/dL ALT (4-49) U/L Total Protein (6.3-8.2) g/dL Albumin (3.5-5.0) g/dL 08/14/20 08/14/20 08/14/20 Range/Units 01:01 01:59 03:21 RBC (4.30-5.90) m/uL Hgb (13.0-17.5) gm/dL Hct (39.0-53.0) % RDW (11.5-15.5) % Neutrophils # (1.3-7.7) k/uL Lymphocytes # (1.0-4.8) k/uL Carbon Dioxide (22-30) mmol/L BUN (9-20) mg/dL Creatinine (0.66-1.25) mg/dL Glucose (74-99) mg/dL POC Glucose (mg/dL) 126 H 112 H 139 H (75-99) mg/dL ALT (4-49) U/L Total Protein (6.3-8.2) g/dL Albumin (3.5-5.0) g/dL 08/14/20 08/14/20 08/14/20 Range/Units 04:05 04:05 04:14 RBC 2.91 L (4.30-5.90) m/uL Hgb 8.9 L (13.0-17.5) gm/dL Hct 28.4 L (39.0-53.0) % RDW 16.8 H (11.5-15.5) % Neutrophils # 8.0 H (1.3-7.7) k/uL Lymphocytes # 0.5 L (1.0-4.8) k/uL Carbon Dioxide 37 H (22-30) mmol/L BUN 58 H (9-20) mg/dL Creatinine 1.50 H (0.66-1.25) mg/dL Glucose 159 H (74-99) mg/dL POC Glucose (mg/dL) 158 H (75-99) mg/dL ALT 50 H (4-49) U/L Total Protein 5.4 L (6.3-8.2) g/dL Albumin 2.6 L (3.5-5.0) g/dL 08/14/20 08/14/2008/14/20 Range/Units 05:14 06:00 06:53 RBC (4.30-5.90) m/uL Hgb (13.0-17.5) gm/dL Hct (39.0-53.0) % RDW (11.5-15.5) % Neutrophils # (1.3-7.7) k/uL Lymphocytes # (1.0-4.8) k/uL Carbon Dioxide (22-30) mmol/L BUN (9-20) mg/dL Creatinine (0.66-1.25) mg/dL Glucose (74-99) mg/dL POC Glucose (mg/dL) 141 H 124 H 120 H (75-99) mg/dL ALT (4-49) U/L Total Protein (6.3-8.2) g/dL Albumin (3.5-5.0) g/dL 08/14/20 Range/Units 08:41 RBC (4.30-5.90) m/uL Hgb (13.0-17.5) gm/dL Hct (39.0-53.0) % RDW (11.5-15.5) % Neutrophils # (1.3-7.7) k/uL Lymphocytes # (1.0-4.8) k/uL Carbon Dioxide (22-30) mmol/L BUN (9-20) mg/dL Creatinine (0.66-1.25) mg/dL Glucose (74-99) mg/dL POC Glucose (mg/dL) 110 H (75-99) mg/dL ALT (4-49) U/L Total Protein (6.3-8.2) g/dL Albumin (3.5-5.0) g/dL - Imaging and Cardiology Chest x-ray: report reviewed, image reviewed Assessment and Plan Assessment: 1. Heavily calcified symptomatic triple-vessel coronary artery disease, status post 2 vessel coronary artery bypass grafting surgery 2. History of coronary artery disease with stent placement to his right coronary artery in 2002 3. Mild left ventricular dysfunction 4. History of hypertension 5. History of hyperlipidemia 6. Hypothyroid status post partial thyroidectomy 7. Chronic obstructive pulmonary disease with preoperative FEV1 53% of predicted value 8. Remote history of tobacco dependence quit smoking 20 years ago 9. Acute on chronic kidney disease stage III with a baseline creatinine of 1.4- 1.5 10. Diabetes mellitus type 2 with a preoperative hemoglobin A1c 5.2% 11. Postoperative acute blood loss anemia, expected 12. Postoperative paroxysmal atrial fibrillation, unexpected 13. Remote history of pneumonia 14. Postoperative paroxysmal atrial fibrillation, unexpected, status post exclusion of the left atrial appendage 15. Pneumoperitoneum, unexpected 16. Pneumatosis of the small bowel, ischemic bowel, status post resection of the small bowel 17. Positive sputum culture for pseudomonas fluorescens 18. Postoperative prolonged mechanical ventilation 19. Acute hypoxic respiratory failure requiring reintubation, unexpected 20. Postoperative hypotension requiring initiation of norepinephrine drip, unexpected 21. Acute abdomen, intraperitoneal hemorrhage, S/P exploratory laparotomy, washout of peritoneal cavity, ileostomy with small bowel resection 22. Postoperative thrombocytopenia, unexpected 23. Generalized debility and overall muscle weakness secondary to above 24. TPN and tube feedings for nutritional support Plan: 1. Continue low dose aspirin, metoprolol tartrate 25 mg per NG tube 3 times. We will increase metoprolol tartrate as tolerated, hold for systolic blood pressure less than 100 mmHg and heart rate less than 60. 2. Continue amiodarone 200 mg per NG tube twice a day for atrial fibrillation prophylaxis. 3. Wean oxygen as tolerated. Encourage use of his incentive spirometry 10 times every hour while awake. Bronchodilator management per pulmonary for/critical care medicine. 4. Continue to monitor daily labs and chest x-rays. Replace electrolytes per protocol. 5. Continue GI/DVT prophylaxis. 6. Pain control with current medication regimen. 7. Insulin management per primary care service. 8. Continue TPN at 75 mL per hour. Keep the NG tube, continue tube feedings of Glucerna per dietitian recommendations at 10 mL per hour, increase tube feedings as tolerated to goal rate.speech pathology consult pending for swallowing evaluation. General surgery recommendations for tube feedings noted and appreciated. Ileostomy had 650 mL output in the last 8 hours. 9. Nephrology following. Avoid nephrotoxic agents. Urine output excellent, 730 mL output last 8 hours. BUN 58 and creatinine 1.50 today. 10. Strict accurate intake and output, daily weights. 11. Continue IV daptomycin, and Eraxis. Positive sputum culture for pseudomonas fluorescens on 07/24/2020. Sputum culture from 08/03/2020 showing Radha albicans. Blood culture results show no growth after 48 hours. Antibiotic management per Dr. Frederick's recommendations. 12. Continue Villafana catheter for accurate I's and O's. 13. Continue wound VAC to midline abdominal incision. Dressing changes Friday and Friday, managed by general surgery. 14. Albumin 25% 12.5 g 50 mL 1 now followed by Lasix 40 mg IV 1. 15. Increase activity as tolerated, out of bed to chair 3 times a day. Physical, occupational therapy and cardiac rehabilitation following. 16. More recommendations to follow based on patient's clinical course. Time with Patient: Greater than 30
[2020-08-14 10:11] LABS: Glucose,Whole Blood 145 mg/dL (75-99)
[2020-08-14 11:17] LABS: Glucose,Whole Blood 130 mg/dL (75-99)
[2020-08-14] MEDS: FAT EMULSION 20% 250 ML IV SCH (11:48)
[2020-08-14 12:24] LABS: Glucose,Whole Blood 130 mg/dL (75-99)
--- NOTE | 2020-08-14 12:55 | P.PN ---
Subjective Progress Note Date: 08/14/20 Patient was seen and examined at the bedside in the medical ICU. The patient was more alert today, and was oriented 3. He reported feeling better as compared to the prior few days. Objective - Vital Signs Vital signs: Vital Signs Temp 97.8 F 08/14/20 08:00 Pulse 89 08/14/20 11:26 Resp 60 H 08/14/20 11:00 BP 139/61 08/14/20 11:00 Pulse Ox 90 L 08/14/20 11:00 Intake & Output 08/13/20 08/14/20 08/14/20 18:59 06:59 18:59 Intake Total 4252.500 5095.601 679.867 Output Total 2150 2530 675 Balance -489.992 -307.399 4.867 Weight 89.6 kg 89 kg Intake: IV 1489.6 957 510 Anidulafungin 100 mg In 100 100 Sodium Chloride 0.9% 100 ml @ 84 mls/hr IVPB DAILY [facility] Rx#:[id number] Fat Emulsion 20% 250 ml @ 146.6 21 20.833 mls/hr IV DAILY@ 1200 [facility] Rx#:[id number] Magnesium Sulfate-D5w Pmx 100 1 gm In Dextrose/Water 1 100ml.bag @ 100 mls/hr IVPB Q1H [facility] Rx#: [id number] Meropenem 1 gm In Sodium 100 Chloride 0.9% 100 ml @ 33 .333 mls/hr IVPB Q12H [facility] Rx#:[id number] Sodium Chloride 0.9% 1, 110 40 000 ml @ 20 mls/hr IV . Q24H [facility] Rx#:[id number] TPN 900 900 355 pressure bag 33 36 15 Intake, IV Titration 30.408 1065.601 14.867 Amount Insulin Regular 100 unit 30.408 43.101 14.867 In Sodium Chloride 0.9% 100 ml @ Per Protocol IV .Q0M [facility] Rx#:[id number] Sodium Acetate 30 meq 1022.5 Potassium Acetate 28 meq In Amino Acids 5 %/ Dextrose 20 % 1,000 ml @ 75 mls/hr IV .BY DURATION [facility] Rx#:[id number] Tube Feeding 50 110 65 Other 90 90 90 Output: Gastric Drainage 200 200 Urine 1950 1480 675 Stool 850 Other: Voiding Method Indwelling Catheter Indwelling Catheter Indwelling Catheter ABP, PAP, CO, CI - Last Documented Arterial Blood Pressure 151/47 Pulmonary Artery Pressure 33/14 Cardiac Output 6.7 Cardiac Index 3.1 - Exam General: Somewhat chronically ill-appearing male, no acute distress HEENT: NC/AT, anicteric sclerae, moist conjunctiva, no lid-lag, PERRLA Cardiovascular: S1/S2 wnl, no murmurs, rubs, or gallops Lungs: Clear to auscultation, normal respiratory effort, no accessory muscle use Abdominal: Postsurgical abdomen with midline incision, ileostomy in place draining brown soft fecal matter Skin: Warm, dry Extremities: 2+ edema bilateral lower extremities Psychiatric: Alert and oriented to person, place and time, appropriate affect Neuro: Moving all extremities, no focal deficits noted - Labs CBC & Chem 7: 08/14/20 04:05 08/14/20 04:05 Labs: Abnormal Lab Results - Last 24 Hours (Table) 08/13/20 08/13/20 08/13/20 Range/Units 13:12 14:03 15:00 RBC (4.30-5.90) m/uL Hgb (13.0-17.5) gm/dL Hct (39.0-53.0) % RDW (11.5-15.5) % Neutrophils # (1.3-7.7) k/uL Lymphocytes # (1.0-4.8) k/uL Carbon Dioxide (22-30) mmol/L BUN (9-20) mg/dL Creatinine (0.66-1.25) mg/dL Glucose (74-99) mg/dL POC Glucose (mg/dL) 116 H 152 H 126 H (75-99) mg/dL ALT (4-49) U/L Total Protein (6.3-8.2) g/dL Albumin (3.5-5.0) g/dL 08/13/20 08/13/20 08/13/20 Range/Units 16:00 18:55 20:03 RBC (4.30-5.90) m/uL Hgb (13.0-17.5) gm/dL Hct (39.0-53.0) % RDW (11.5-15.5) % Neutrophils # (1.3-7.7) k/uL Lymphocytes # (1.0-4.8) k/uL Carbon Dioxide (22-30) mmol/L BUN (9-20) mg/dL Creatinine (0.66-1.25) mg/dL Glucose (74-99) mg/dL POC Glucose (mg/dL) 116 H 147 H 140 H (75-99) mg/dL ALT (4-49) U/L Total Protein (6.3-8.2) g/dL Albumin (3.5-5.0) g/dL 08/13/20 08/13/20 08/13/20 Range/Units 21:07 22:03 23:04 RBC (4.30-5.90) m/uL Hgb (13.0-17.5) gm/dL Hct (39.0-53.0) % RDW (11.5-15.5) % Neutrophils # (1.3-7.7) k/uL Lymphocytes # (1.0-4.8) k/uL Carbon Dioxide (22-30) mmol/L BUN (9-20) mg/dL Creatinine (0.66-1.25) mg/dL Glucose (74-99) mg/dL POC Glucose (mg/dL) 123 H 110 H 134 H (75-99) mg/dL ALT (4-49) U/L Total Protein (6.3-8.2) g/dL Albumin (3.5-5.0) g/dL 08/13/20 08/14/20 08/14/20 Range/Units 23:59 01:01 01:59 RBC (4.30-5.90) m/uL Hgb (13.0-17.5) gm/dL Hct (39.0-53.0) % RDW (11.5-15.5) % Neutrophils # (1.3-7.7) k/uL Lymphocytes # (1.0-4.8) k/uL Carbon Dioxide (22-30) mmol/L BUN (9-20) mg/dL Creatinine (0.66-1.25) mg/dL Glucose (74-99) mg/dL POC Glucose (mg/dL) 138 H 126 H 112 H (75-99) mg/dL ALT (4-49) U/L Total Protein (6.3-8.2) g/dL Albumin (3.5-5.0) g/dL 08/14/20 08/14/20 08/14/20 Range/Units 03:21 04:05 04:05 RBC 2.91 L (4.30-5.90) m/uL Hgb 8.9 L (13.0-17.5) gm/dL Hct 28.4 L (39.0-53.0) % RDW 16.8 H (11.5-15.5) % Neutrophils # 8.0 H (1.3-7.7) k/uL Lymphocytes # 0.5 L (1.0-4.8) k/uL Carbon Dioxide 37 H (22-30) mmol/L BUN 58 H (9-20) mg/dL Creatinine 1.50 H (0.66-1.25) mg/dL Glucose 159 H (74-99) mg/dL POC Glucose (mg/dL) 139 H (75-99) mg/dL ALT 50 H (4-49) U/L Total Protein 5.4 L (6.3-8.2) g/dL Albumin 2.6 L (3.5-5.0) g/dL 08/14/20 08/14/20 08/14/20 Range/Units 04:14 05:14 06:00 RBC (4.30-5.90) m/uL Hgb (13.0-17.5) gm/dL Hct (39.0-53.0) % RDW (11.5-15.5) % Neutrophils # (1.3-7.7) k/uL Lymphocytes # (1.0-4.8) k/uL Carbon Dioxide (22-30) mmol/L BUN (9-20) mg/dL Creatinine (0.66-1.25) mg/dL Glucose (74-99) mg/dL POC Glucose (mg/dL) 158 H 141 H 124 H (75-99) mg/dL ALT (4-49) U/L Total Protein (6.3-8.2) g/dL Albumin (3.5-5.0) g/dL 08/14/20 08/14/20 08/14/20 Range/Units 06:53 08:41 09:24 RBC (4.30-5.90) m/uL Hgb (13.0-17.5) gm/dL Hct (39.0-53.0) % RDW (11.5-15.5) % Neutrophils # (1.3-7.7) k/uL Lymphocytes # (1.0-4.8) k/uL Carbon Dioxide (22-30) mmol/L BUN (9-20) mg/dL Creatinine (0.66-1.25) mg/dL Glucose (74-99) mg/dL POC Glucose (mg/dL) 120 H 110 H 120 H (75-99) mg/dL ALT (4-49) U/L Total Protein (6.3-8.2) g/dL Albumin (3.5-5.0) g/dL 08/14/20 08/14/20 08/14/20 Range/Units 10:09 11:16 12:23 RBC (4.30-5.90) m/uL Hgb (13.0-17.5) gm/dL Hct (39.0-53.0) % RDW (11.5-15.5) % Neutrophils # (1.3-7.7) k/uL Lymphocytes # (1.0-4.8) k/uL Carbon Dioxide (22-30) mmol/L BUN (9-20) mg/dL Creatinine (0.66-1.25) mg/dL Glucose (74-99) mg/dL POC Glucose (mg/dL) 145 H 130 H 130 H (75-99) mg/dL ALT (4-49) U/L Total Protein (6.3-8.2) g/dL Albumin (3.5-5.0) g/dL Assessment and Plan Plan: 1. CAD s/p CABG with 2v bypass, PABLO to LAD, and SVG to posterior decending coronary artery 2. Paroxysmal Atrial Fibrillation, with RVR 3. 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 Pneumatosis, Ischemic Bowel, s/p small bowel resection 5. Acute Blood Loss Anemia, post-operative, resolved 6. Pneumoperitoneum secondary to chest tubes, Resolved 7. CONNOR superimposed on CKD, stage III, Resolved 8. Hypertension, essential 9. Hyperlipidemia 10. Type II DM, uncontrolled 11. Hypothyroidism 12. Obesity, BMI 30.5 13. Hyponatremia, and Hyperkalemia, resolved 80 year old man with history of COPD, CKD III, HTN/HLD/CAD/DM, Obesity presented for symptomatic CAD and underwent 2v CABG with post-operative course complicated by respiratory failure secondary to COPD exacerbation, blood loss anemia, paroxysmal atrial fibrillation with RVR, and metabolic derangements. DM 2 - Insulin coverage discontinued. Blood glucose levels within acceptable range. - A1C from 06/21/2020 5.2, anticipate discharge home back on metformin which may be able to come off in the near future in the outpatient setting. Small Bowel Ischemia - s/p resection/anastamosis, s/p anastamosis take down and diverting ileostomy - on daptomycin/eraxis -> infectious disease managing antibiotics - Patient currently on TPN as per surgery recommendations. Patient also started on prokinetic, Enereg. Diet as per surgery A-fib with RVR - Continue with Lopressor 25 by mouth 3 times a day and amiodarone 200 mg twice a day - Eliquis held due to bleeding, now on heparin q8h for DVT PPx Acute blood loss anemia and thrombocytopenia, anticipated outcome of surgery - follow CBC - transfuse as indicated COPD with acute exacerbation - DuIan Pulmicort Coronary artery disease -Status post coronary artery bypass grafting -Cardiothoracic and cardiology following HTN - meds per cardiology Hypothyroidism status post partial thyroidectomy - Continue with Synthroid 25 g daily Prognosis is guarded due to multiple active medication conditions.
--- NOTE | 2020-08-14 13:08 | PN ---
PROGRESS NOTE Patient is seen for followup for acute kidney injury. His renal function has improved. Creatinine is down to about 1.4 to 1.5 from peak of about 2.6 mg/dL. This morning, patient is awake. He has an NG tube in place. His urine output is about 100 to 200 mL an hour. The patient is maintained on daptomycin. He is also on TPN, which is currently being decreased and switched over to tube feedings. The patient is scheduled to receive albumin and IV Lasix. PHYSICAL EXAMINATION: On examination today, blood pressure was 136/72, heart rate 94 per minute. Patient is afebrile. EXAMINATION OF THE HEART: S1, S2. EXAMINATION OF LUNGS: Decreased breath sounds at bases. Abdomen is soft. Examination of lower extremities shows edema 2+ bilaterally. LABS: Labs show sodium 143, potassium 4.0, chloride 104, CO2 is 37, BUN 58, creatinine 1.5 mg/dL. Albumin 2.6. ASSESSMENT: 1. Acute kidney injury, acute tubular necrosis, currently nonoliguric associated with volume overload receiving albumin and IV Lasix. Volume status somewhat improving. 2. Status post coronary artery bypass surgery day #27. 3. Chronic kidney disease stage 3, baseline creatinine 1.2-1.5 secondary to nephrosclerosis. UA was benign from June of 2020. 4. Bowel ischemia, status post exploratory laparotomy, bowel resection and ileostomy. 5. Atrial fibrillation, status post rapid ventricular response. 6. Volume overload. The patient is being diuresed. PLAN: Continue to advance tube feedings and wean down the TPN. The patient will likely need daily dose of loop diuretics. MMODL / IJN: [id number] /
[2020-08-14] MEDS ORDERED: DEXTROSE 50% SYRINGE 50 ML IVP ONE (13:44)
[2020-08-14 13:45] LABS: Glucose,Whole Blood 39 mg/dL (75-99)
--- NOTE | 2020-08-14 13:56 | P.PN ---
Progress Note - Text Progress Note Date: 08/14/20 The patient has started tube feeds. He has had some output through his jejunostomy. On exam vital signs appear stable. Wound is clean. Wound VAC was taken down in the wound was inspected. There is healthy granulation tissue wound. Jejunostomy has some stool-like output. Status post small bowel resection after CABG. Patient has had slow improvement. We will continue supportive care.
[2020-08-14 14:11] LABS: Glucose,Whole Blood 162 mg/dL (75-99)
--- NOTE | 2020-08-14 14:29 | P.PN ---
Subjective Progress Note Date: 08/14/20 Principal diagnosis: Coronary artery disease and status post CABG This is a 80-year-old gentleman with coronary artery disease and status post CABG as well as persistent atrial fibrillation. The patient was seen today. He seems to be overall stable. No symptoms of chest pain or chest discomfort or shortness of breath. The heart rate seems to be controlled. He is not on any oral anticoagulation likely secondary to the acute blood loss anemia. Objective - Vital Signs Vital signs: Vital Signs Temp 96.7 F L 08/14/20 12:00 Pulse 94 08/14/20 12:00 Resp 24 08/14/20 12:00 BP 136/72 08/14/20 12:00 Pulse Ox 96 08/14/20 12:00 Intake & Output 08/13/20 08/14/20 08/14/20 18:59 06:59 18:59 Intake Total 2758.697 6895.601 826.209 Output Total 2150 2530 925 Balance -489.992 -307.399 -98.791 Weight 89.6 kg 89 kg Intake: IV 1489.6 957 598 Anidulafungin 100 mg In 100 100 Sodium Chloride 0.9% 100 ml @ 84 mls/hr IVPB DAILY [facility] Rx#:[id number] Fat Emulsion 20% 250 ml @ 146.6 21 20.833 mls/hr IV DAILY@ 1200 [facility] Rx#:[id number] Magnesium Sulfate-D5w Pmx 100 1 gm In Dextrose/Water 1 100ml.bag @ 100 mls/hr IVPB Q1H [facility] Rx#: [id number] Meropenem 1 gm In Sodium 100 Chloride 0.9% 100 ml @ 33 .333 mls/hr IVPB Q12H [facility] Rx#:[id number] Sodium Chloride 0.9% 1, 110 50 000 ml @ 20 mls/hr IV . Q24H [facility] Rx#:[id number] TPN 900 900 430 pressure bag 33 36 18 Intake, IV Titration 30.408 1065.601 23.209 Amount Insulin Regular 100 unit 30.408 43.101 23.209 In Sodium Chloride 0.9% 100 ml @ Per Protocol IV .Q0M [facility] Rx#:[id number] Sodium Acetate 30 meq 1022.5 Potassium Acetate 28 meq In Amino Acids 5 %/ Dextrose 20 % 1,000 ml @ 75 mls/hr IV .BY DURATION [facility] Rx#:[id number] Tube Feeding 50 110 85 Other 90 90 120 Output: Gastric Drainage 200 200 Urine 1950 1480 925 Stool 850 Other: Voiding Method Indwelling Catheter Indwelling Catheter Indwelling Catheter ABP, PAP, CO, CI - Last Documented Arterial Blood Pressure 142/54 Pulmonary Artery Pressure 33/14 Cardiac Output 6.7 Cardiac Index 3.1 - Constitutional General appearance: Present: no acute distress - Respiratory Respiratory: bilateral: diminished - Cardiovascular Heart sounds: normal: S1, S2 - Labs CBC & Chem 7: 08/14/20 04:05 08/14/20 04:05 Labs: Abnormal Lab Results - Last 24 Hours (Table) 08/13/20 08/13/20 08/13/20 Range/Units 15:00 16:00 18:55 RBC (4.30-5.90) m/uL Hgb (13.0-17.5) gm/dL Hct (39.0-53.0) % RDW (11.5-15.5) % Neutrophils # (1.3-7.7) k/uL Lymphocytes # (1.0-4.8) k/uL Carbon Dioxide (22-30) mmol/L BUN (9-20) mg/dL Creatinine (0.66-1.25) mg/dL Glucose (74-99) mg/dL POC Glucose (mg/dL) 126 H 116 H 147 H (75-99) mg/dL ALT (4-49) U/L Total Protein (6.3-8.2) g/dL Albumin (3.5-5.0) g/dL 08/13/20 08/13/20 08/13/20 Range/Units 20:03 21:07 22:03 RBC (4.30-5.90) m/uL Hgb (13.0-17.5) gm/dL Hct (39.0-53.0) % RDW (11.5-15.5) % Neutrophils # (1.3-7.7) k/uL Lymphocytes # (1.0-4.8) k/uL Carbon Dioxide (22-30) mmol/L BUN (9-20) mg/dL Creatinine (0.66-1.25) mg/dL Glucose (74-99) mg/dL POC Glucose (mg/dL) 140 H 123 H 110 H (75-99) mg/dL ALT (4-49) U/L Total Protein (6.3-8.2) g/dL Albumin (3.5-5.0) g/dL 08/13/20 08/13/20 08/14/20 Range/Units 23:04 23:59 01:01 RBC (4.30-5.90) m/uL Hgb (13.0-17.5) gm/dL Hct (39.0-53.0) % RDW (11.5-15.5) % Neutrophils # (1.3-7.7) k/uL Lymphocytes # (1.0-4.8) k/uL Carbon Dioxide (22-30) mmol/L BUN (9-20) mg/dL Creatinine (0.66-1.25) mg/dL Glucose (74-99) mg/dL POC Glucose (mg/dL) 134 H 138 H 126 H (75-99) mg/dL ALT (4-49) U/L Total Protein (6.3-8.2) g/dL Albumin (3.5-5.0) g/dL 08/14/20 08/14/20 08/14/20 Range/Units 01:59 03:21 04:05 RBC (4.30-5.90) m/uL Hgb (13.0-17.5) gm/dL Hct (39.0-53.0) % RDW (11.5-15.5) % Neutrophils # (1.3-7.7) k/uL Lymphocytes # (1.0-4.8) k/uL Carbon Dioxide 37 H (22-30) mmol/L BUN 58 H (9-20) mg/dL Creatinine 1.50 H (0.66-1.25) mg/dL Glucose 159 H (74-99) mg/dL POC Glucose (mg/dL) 112 H 139 H (75-99) mg/dL ALT 50 H (4-49) U/L Total Protein 5.4 L (6.3-8.2) g/dL Albumin 2.6 L (3.5-5.0) g/dL 08/14/20 08/14/20 08/14/20 Range/Units 04:05 04:14 05:14 RBC 2.91 L (4.30-5.90) m/uL Hgb 8.9 L (13.0-17.5) gm/dL Hct 28.4 L (39.0-53.0) % RDW 16.8 H (11.5-15.5) % Neutrophils # 8.0 H (1.3-7.7) k/uL Lymphocytes # 0.5 L (1.0-4.8) k/uL Carbon Dioxide (22-30) mmol/L BUN (9-20) mg/dL Creatinine (0.66-1.25) mg/dL Glucose (74-99) mg/dL POC Glucose (mg/dL) 158 H 141 H (75-99) mg/dL ALT (4-49) U/L Total Protein (6.3-8.2) g/dL Albumin (3.5-5.0) g/dL 08/14/20 08/14/20 08/14/20 Range/Units 06:00 06:53 08:41 RBC (4.30-5.90) m/uL Hgb (13.0-17.5) gm/dL Hct (39.0-53.0) % RDW (11.5-15.5) % Neutrophils # (1.3-7.7) k/uL Lymphocytes # (1.0-4.8) k/uL Carbon Dioxide (22-30) mmol/L BUN (9-20) mg/dL Creatinine (0.66-1.25) mg/dL Glucose (74-99) mg/dL POC Glucose (mg/dL) 124 H 120 H 110 H (75-99) mg/dL ALT (4-49) U/L Total Protein (6.3-8.2) g/dL Albumin (3.5-5.0) g/dL 08/14/20 08/14/20 08/14/20 Range/Units 09:24 10:09 11:16 RBC (4.30-5.90) m/uL Hgb (13.0-17.5) gm/dL Hct (39.0-53.0) % RDW (11.5-15.5) % Neutrophils # (1.3-7.7) k/uL Lymphocytes # (1.0-4.8) k/uL Carbon Dioxide (22-30) mmol/L BUN (9-20) mg/dL Creatinine (0.66-1.25) mg/dL Glucose (74-99) mg/dL POC Glucose (mg/dL) 120 H 145 H 130 H (75-99) mg/dL ALT (4-49) U/L Total Protein (6.3-8.2) g/dL Albumin (3.5-5.0) g/dL 08/14/20 08/14/20 08/14/20 Range/Units 12:23 13:35 14:10 RBC (4.30-5.90) m/uL Hgb (13.0-17.5) gm/dL Hct (39.0-53.0) % RDW (11.5-15.5) % Neutrophils # (1.3-7.7) k/uL Lymphocytes # (1.0-4.8) k/uL Carbon Dioxide (22-30) mmol/L BUN (9-20) mg/dL Creatinine (0.66-1.25) mg/dL Glucose (74-99) mg/dL POC Glucose (mg/dL) 130 H 39 L 162 H (75-99) mg/dL ALT (4-49) U/L Total Protein (6.3-8.2) g/dL Albumin (3.5-5.0) g/dL Assessment and Plan Assessment: Assessment #1 coronary artery disease and status post CABG #2 permanent atrial fibrillation was controlled heart rate #3 multiple comorbid conditions Plan #1 continue the current medical regimen #2 follow-up with the patient
[2020-08-14 15:19] LABS: Glucose,Whole Blood 170 mg/dL (75-99)
[2020-08-14 15:59] LABS: Glucose,Whole Blood 144 mg/dL (75-99)
[2020-08-14 16:59] LABS: Glucose,Whole Blood 146 mg/dL (75-99)
[2020-08-14 18:36] LABS: Glucose,Whole Blood 115 mg/dL (75-99)
[2020-08-14 19:14] LABS: Glucose,Whole Blood 160 mg/dL (75-99)
[2020-08-14 20:12] LABS: Glucose,Whole Blood 151 mg/dL (75-99)
[2020-08-14] MEDS: METOPROLOL TARTRATE 50 MG TAB PO SCH (20:14)
[2020-08-14 21:32] LABS: Glucose,Whole Blood 152 mg/dL (75-99)
--- NOTE | 2020-08-14 22:38 | PN ---
PROGRESS NOTE DATE OF SERVICE: 08/14/2020 REASON FOR FOLLOWUP: Leukocytosis. INTERVAL HISTORY: The patient is currently afebrile. The patient is breathing comfortably. He seems to be slightly more awake and alert. Hemodynamically stable. No nausea. No vomiting. No abdominal pain or diarrhea. PHYSICAL EXAMINATION: Blood pressure 126/58 with a pulse of 70, temperature is 98.3. He is 96% on 2 L nasal cannula. General description is an elderly male up in the bed in no distress. RESPIRATORY SYSTEM: Unlabored breathing with decreased breath sounds at the base. No wheeze. HEART: S1, S2. Regular rate and rhythm. ABDOMEN: Soft. No tenderness. LAB: Hemoglobin is 8.9, white count 9.4, BUN of 58, creatinine 1.50. DIAGNOSTIC IMPRESSION AND PLAN: Patient with elevated white count which is multifactorial in this patient who did have an ischemic small bowel plus/minus line-related infection with the culture tip positive for Staphylococcus epidermidis. Patient is currently covered with daptomycin and Eraxis and white count has normalized. Continue current antibiotics and monitor his clinical course closely. MMODL / IJN: [id number] /
[2020-08-14 23:00] LABS: Glucose,Whole Blood 146 mg/dL (75-99)
[2020-08-15] MEDS: INSULIN REGULAR 100 UNIT in SODIUM CHLORIDE 0.9% 100 ML IV SCH (00:20)
[2020-08-15 00:21] LABS: Glucose,Whole Blood 132 mg/dL (75-99)
[2020-08-15] MEDS: HEPARIN SODIUM,PORCINE 5,000 UNIT/ML 1 ML VIAL SQ SCH ×3 (00:27→15:56)
[2020-08-15 02:16] LABS: Glucose,Whole Blood 132 mg/dL (75-99)
[2020-08-15 03:32] LABS: Glucose,Whole Blood 136 mg/dL (75-99)
[2020-08-15 03:51] LABS: Anisocytosis Slight; Basophils # (A) 0.1 k/uL (0-0.2); Basophils % (A) 1 %; Eosinophils # (A) 0.2 k/uL (0-0.7); Eosinophils % (A) 2 %; HCT 29.8 % (39.0-53.0); HGB 9.2 gm/dL (13.0-17.5); Hypochromasia Marked; Lymphocytes # (A) 0.4 k/uL (1.0-4.8); Lymphocytes % (A) 4 %; MCH 29.8 pg (25.0-35.0); MCHC 30.9 g/dL (31.0-37.0); MCV 96.6 fL (80.0-100.0); Macrocytosis Slight; Mean Platelet Volume 8.1; Monocytes # (A) 0.6 k/uL (0-1.0); Monocytes % (A) 6 %; Neutrophils # (A) 9.4 k/uL (1.3-7.7); Neutrophils % (A) 86 %; Platelet Count 288 k/uL (150-450); Poikilocytosis Slight; RBC 3.09 m/uL (4.30-5.90); RDW 16.4 % (11.5-15.5); WBC 10.9 k/uL (3.8-10.6)
[2020-08-15 04:05] LABS: Calcium 9.3 mg/dL (8.4-10.2); Magnesium 1.9 mg/dL (1.6-2.3); Potassium 4.2 mmol/L (3.5-5.1)
[2020-08-15 05:38] LABS: Glucose,Whole Blood 112 mg/dL (75-99)
[2020-08-15] MEDS: SODIUM CHLORIDE 0.9% 1,000 ML IV SCH (06:15)
[2020-08-15] MEDS: MAGNESIUM SULFATE-D5W PMX 1 GM in DEXTROSE/WATER 1 100ML.BAG IVPB SCH ×2 (06:17→08:26)
[2020-08-15 07:10] LABS: Glucose,Whole Blood 163 mg/dL (75-99)
[2020-08-15] MEDS: ACETYLCYSTEINE 800 MG/4 ML VIAL INHALATION SCH ×3 (07:15→20:29)
[2020-08-15] MEDS: FORMOTEROL FUMARATE 20 MCG/2 ML NEBU INHALATION SCH ×2 (07:15→20:30)
[2020-08-15] MEDS: IPRATROPIUM-ALBUTEROL 3 ML NEB INHALATION SCH ×4 (07:15→20:30)
[2020-08-15] MEDS: BUDESONIDE 1 MG/2 ML NEBU INHALATION SCH ×2 (07:15→20:30)
--- NOTE | 2020-08-15 07:46 | P.PN ---
Subjective Progress Note Date: 08/15/20 Principal diagnosis: Coronary artery disease and status post CABG This is a 80-year-old gentleman with coronary artery disease and status post CABG as well as persistent atrial fibrillation. The patient was seen today August 152019. He denies any symptoms of chest pain or chest discomfort. He seems to be more awake and more alert today. Hemodynamic he is a stable. Objective - Vital Signs Vital signs: Vital Signs Temp 97.8 F 08/15/20 04:00 Pulse 86 08/15/20 07:31 Resp 29 H 08/15/20 07:31 BP 130/104 08/15/20 07:00 Pulse Ox 98 08/15/20 07:00 Intake & Output 08/14/20 08/15/20 08/15/20 18:59 06:59 18:59 Intake Total 9056.054 2389.833 58 Output Total 2049 1585 80 Balance -683.766 -225.167 -22 Intake: IV 976 779 58 Anidulafungin 100 mg In 100 Sodium Chloride 0.9% 100 ml @ 84 mls/hr IVPB DAILY [facility] Rx#:[id number] Fat Emulsion 20% 250 ml @ 63 20.833 mls/hr IV DAILY@ 1200 [facility] Rx#:[id number] Sodium Chloride 0.9% 1, 100 20 000 ml @ 20 mls/hr IV . Q24H [facility] Rx#:[id number] TPN 740 660 55 pressure bag 36 36 3 Intake, IV Titration 35.234 250.833 0 Amount Insulin Regular 100 unit 35.234 50.833 0 In Sodium Chloride 0.9% 100 ml @ Per Protocol IV .Q0M [facility] Rx#:[id number] Sodium Acetate 20 meq 200 Potassium Acetate 28 meq In Amino Acids 5 %/ Dextrose 20 % 1,000 ml @ 75 mls/hr IV .BY DURATION [facility] Rx#:[id number] Tube Feeding 205 240 Other 150 90 Output: Urine 2049 1135 80 Stool 450 Other: Voiding Method Indwelling Catheter Indwelling Catheter Indwelling Catheter ABP, PAP, CO, CI - Last Documented Arterial Blood Pressure 134/57 Pulmonary Artery Pressure 33/14 Cardiac Output 6.7 Cardiac Index 3.1 - Constitutional General appearance: Present: no acute distress - Respiratory Respiratory: bilateral: diminished - Cardiovascular Heart sounds: normal: S1, S2 - Labs CBC & Chem 7: 08/15/20 03:30 08/15/20 03:30 Labs: Abnormal Lab Results - Last 24 Hours (Table) 08/14/20 08/14/20 08/14/20 Range/Units 08:41 09:24 10:09 WBC (3.8-10.6) k/uL RBC (4.30-5.90) m/uL Hgb (13.0-17.5) gm/dL Hct (39.0-53.0) % MCHC (31.0-37.0) g/dL RDW (11.5-15.5) % Neutrophils # (1.3-7.7) k/uL Lymphocytes # (1.0-4.8) k/uL Carbon Dioxide (22-30) mmol/L BUN (9-20) mg/dL Creatinine (0.66-1.25) mg/dL Glucose (74-99) mg/dL POC Glucose (mg/dL) 110 H 120 H 145 H (75-99) mg/dL 08/14/20 08/14/20 08/14/20 Range/Units 11:16 12:23 13:35 WBC (3.8-10.6) k/uL RBC (4.30-5.90) m/uL Hgb (13.0-17.5) gm/dL Hct (39.0-53.0) % MCHC (31.0-37.0) g/dL RDW (11.5-15.5) % Neutrophils # (1.3-7.7) k/uL Lymphocytes # (1.0-4.8) k/uL Carbon Dioxide (22-30) mmol/L BUN (9-20) mg/dL Creatinine (0.66-1.25) mg/dL Glucose (74-99) mg/dL POC Glucose (mg/dL) 130 H 130 H 39 L (75-99) mg/dL 08/14/20 08/14/20 08/14/20 Range/Units 14:10 15:13 15:58 WBC (3.8-10.6) k/uL RBC (4.30-5.90) m/uL Hgb (13.0-17.5) gm/dL Hct (39.0-53.0) % MCHC (31.0-37.0) g/dL RDW (11.5-15.5) % Neutrophils # (1.3-7.7) k/uL Lymphocytes # (1.0-4.8) k/uL Carbon Dioxide (22-30) mmol/L BUN (9-20) mg/dL Creatinine (0.66-1.25) mg/dL Glucose (74-99) mg/dL POC Glucose (mg/dL) 162 H 170 H 144 H (75-99) mg/dL 08/14/20 08/14/20 08/14/20 Range/Units 16:57 18:35 19:12 WBC (3.8-10.6) k/uL RBC (4.30-5.90) m/uL Hgb (13.0-17.5) gm/dL Hct (39.0-53.0) % MCHC (31.0-37.0) g/dL RDW (11.5-15.5) % Neutrophils # (1.3-7.7) k/uL Lymphocytes # (1.0-4.8) k/uL Carbon Dioxide (22-30) mmol/L BUN (9-20) mg/dL Creatinine (0.66-1.25) mg/dL Glucose (74-99) mg/dL POC Glucose (mg/dL) 146 H 115 H 160 H (75-99) mg/dL 08/14/20 08/14/20 08/14/20 Range/Units 20:10 21:31 22:57 WBC (3.8-10.6) k/uL RBC (4.30-5.90) m/uL Hgb (13.0-17.5) gm/dL Hct (39.0-53.0) % MCHC (31.0-37.0) g/dL RDW (11.5-15.5) % Neutrophils # (1.3-7.7) k/uL Lymphocytes # (1.0-4.8) k/uL Carbon Dioxide (22-30) mmol/L BUN (9-20) mg/dL Creatinine (0.66-1.25) mg/dL Glucose (74-99) mg/dL POC Glucose (mg/dL) 151 H 152 H 146 H (75-99) mg/dL 08/15/20 08/15/20 08/15/20 Range/Units 00:19 02:16 03:30 WBC (3.8-10.6) k/uL RBC (4.30-5.90) m/uL Hgb (13.0-17.5) gm/dL Hct (39.0-53.0) % MCHC (31.0-37.0) g/dL RDW (11.5-15.5) % Neutrophils # (1.3-7.7) k/uL Lymphocytes # (1.0-4.8) k/uL Carbon Dioxide 38 H (22-30) mmol/L BUN 55 H (9-20) mg/dL Creatinine 1.40 H (0.66-1.25) mg/dL Glucose 141 H (74-99) mg/dL POC Glucose (mg/dL) 132 H 132 H (75-99) mg/dL 08/15/20 08/15/20 08/15/20 Range/Units 03:30 03:30 05:37 WBC 10.9 H (3.8-10.6) k/uL RBC 3.09 L (4.30-5.90) m/uL Hgb 9.2 L (13.0-17.5) gm/dL Hct 29.8 L (39.0-53.0) % MCHC 30.9 L (31.0-37.0) g/dL RDW 16.4 H (11.5-15.5) % Neutrophils # 9.4 H (1.3-7.7) k/uL Lymphocytes # 0.4 L (1.0-4.8) k/uL Carbon Dioxide (22-30) mmol/L BUN (9-20) mg/dL Creatinine (0.66-1.25) mg/dL Glucose (74-99) mg/dL POC Glucose (mg/dL) 136 H 112 H (75-99) mg/dL 08/15/20 Range/Units 07:09 WBC (3.8-10.6) k/uL RBC (4.30-5.90) m/uL Hgb (13.0-17.5) gm/dL Hct (39.0-53.0) % MCHC (31.0-37.0) g/dL RDW (11.5-15.5) % Neutrophils # (1.3-7.7) k/uL Lymphocytes # (1.0-4.8) k/uL Carbon Dioxide (22-30) mmol/L BUN (9-20) mg/dL Creatinine (0.66-1.25) mg/dL Glucose (74-99) mg/dL POC Glucose (mg/dL) 163 H (75-99) mg/dL Assessment and Plan Assessment: Assessment #1 coronary artery disease and status post CABG #2 permanent atrial fibrillation was controlled heart rate #3 multiple comorbid conditions Plan #1 continue the current medical regimen #2 follow-up with the patient
--- NOTE | 2020-08-15 08:05 | P.PN ---
Subjective Progress Note Date: 08/15/20 On 08/14/2020, the patient is being seen in follow-up in the intensive care units. Overall, he remains quite weak and debilitated as the patient has undergone a prolonged ICU stay following coronary artery bypass surgery and following bowel surgery 2 for ischemic bowel. The patient is postop day #28 f ollowing double bypass surgery with PABLO to LAD and saphenous finger after 2 PDA and clipping of the left atrial appendage. The patient subsequently underwent a small bowel resection for bowel ischemia and he is postop day #22 that regard with subsequent evaluation and another exploratory laparotomy and washout of the peritoneal cavity in addition to an ileostomy with small bowel resection and the patient is postop day #13 in that regard. The patient is currently on 1 L about 2 by nasal cannula. The patient is still on TPN for nutritional support which is running at 45 mL an hour. He remains on insulin drip at 5.5 units an hour. Chest x-ray continues to show small to moderate-sized atelectatic changes and effusion the lung bases bilaterally. The patient is using incentive spirometer. The patient is pulling approximately 500 mL on incentive spirometer. His TPN is being gradually weaned off and the patient is being advanced on his enteral feeding and he remains on Glucerna which is running at 30 mL an hour. He is hemodynamically stable. He remains quite weak. NG tube is in place. Another swallow evaluation to be done today. Chest x-ray shows no major interval change and there are bilateral pleural effusions. The patient has a PICC line the arm. Extremities are mildly swollen. His cardiac rhythm is sinus. Ileostomy is viable and functioning this point in time. No abdominal distention. Surgical wound site is dry clean and intact and the wound VAC is also in place with limited amount of output and the sternal wound is dry clean and intact. Objective - Vital Signs Vital signs: Vital Signs Temp 97.8 F 08/15/20 04:00 Pulse 93 08/15/20 07:48 Resp 29 H 08/15/20 07:31 BP 130/104 08/15/20 07:00 Pulse Ox 98 08/15/20 07:00 Intake & Output 08/14/20 08/15/20 08/15/20 18:59 06:59 18:59 Intake Total 7433.078 0486.833 58 Output Total 2050 1585 80 Balance -683.766 -225.167 -22 Intake: IV 976 779 58 Anidulafungin 100 mg In 100 Sodium Chloride 0.9% 100 ml @ 84 mls/hr IVPB DAILY [facility] Rx#:[id number] Fat Emulsion 20% 250 ml @ 63 20.833 mls/hr IV DAILY@ 1200 WADE Rx#:[id number] Sodium Chloride 0.9% 1, 100 20 000 ml @ 20 mls/hr IV . Q24H [facility] Rx#:[id number] TPN 740 660 55 pressure bag 36 36 3 Intake, IV Titration 35.234 250.833 0 Amount Insulin Regular 100 unit 35.234 50.833 0 In Sodium Chloride 0.9% 100 ml @ Per Protocol IV .Q0M WADE Rx#:[id number] Sodium Acetate 20 meq 200 Potassium Acetate 28 meq In Amino Acids 5 %/ Dextrose 20 % 1,000 ml @ 75 mls/hr IV .BY DURATION WADE Rx#:[id number] Tube Feeding 205 240 Other 150 90 Output: Urine 2049 1135 80 Stool 450 Other: Voiding Method Indwelling Catheter Indwelling Catheter Indwelling Catheter ABP, PAP, CO, CI - Last Documented Arterial Blood Pressure 134/57 Pulmonary Artery Pressure 33/14 Cardiac Output 6.7 Cardiac Index 3.1 - Exam - Constitutional General appearance: Present: cooperative, no acute distress, obese my NG tube is in place. Output is minimal - EENT Eyes: Present: normal appearance. Absent: scleral icterus ENT: Present: hearing grossly normal - Neck Details: Neck is supple, no JVD, no lymphadenopathy. - Respiratory Details: Lung sounds with few scattered rhonchi throughout, diminished to his bilateral bases. No wheezes or crackles. Respirations are symmetrical and nonlabored. Oxygen saturation are 93% on 1 L nasal cannula. Achieving 500 mL on his incentive spirometry with much encouragement. - Cardiovascular Details: Regular rhythm and rate. S1 and S2 present, negative for S3, gallop or murmur. Sternum is stable. Heart hugger is in place. Bedside telemetry showing normal sinus rhythm heart rate 95 BPM. Knee-high ALPHONSO hose and sequential compression devices in place to his bilateral lower extremities. Right arm PICC line in place and functioning. Left radial arterial line in place and functioning. Anasarca. - Gastrointestinal Gastrointestinal Comment(s): Abdomen soft, nontender and nondistended. Hypoactive bowel sounds present in all 4 abdominal quadrants. No guarding or rigidity. No organomegaly appreciated. TPN at 75 mL per hour for nutritional support. NG tube in place The patient also has a wound VAC over the anterior abdominal wall, and output from the wound VAC is minimal at this point in time. - Genitourinary Genitourinary Comment(s): Villafana catheter for accurate I&O. Draining clear yellow urine - Integumentary Integumentary Comment(s): Skin is warm and dry. No clubbing or cyanosis is present. Midline sternal incision is clean, dry and approximated. No drainage redness is present. Right lower extremity EVH sites are clean, dry and approximated. No drainage or redness is present. Midline abdominal incision with wound VAC dressing clean, dry and intact. No air leak present. - Neurologic Neurologic: Present: CNII-XII intact - Musculoskeletal Musculoskeletal: Present: generalized weakness, strength equal bilaterally - Labs CBC & Chem 7: 08/15/20 03:30 08/15/20 03:30 Labs: Abnormal Lab Results - Last 24 Hours (Table) 08/14/20 08/14/20 08/14/20 Range/Units 08:41 09:24 10:09 WBC (3.8-10.6) k/uL RBC (4.30-5.90) m/uL Hgb (13.0-17.5) gm/dL Hct (39.0-53.0) % MCHC (31.0-37.0) g/dL RDW (11.5-15.5) % Neutrophils # (1.3-7.7) k/uL Lymphocytes # (1.0-4.8) k/uL Carbon Dioxide (22-30) mmol/L BUN (9-20) mg/dL Creatinine (0.66-1.25) mg/dL Glucose (74-99) mg/dL POC Glucose (mg/dL) 110 H 120 H 145 H (75-99) mg/dL 08/14/20 08/14/20 08/14/20 Range/Units 11:16 12:23 13:35 WBC (3.8-10.6) k/uL RBC (4.30-5.90) m/uL Hgb (13.0-17.5) gm/dL Hct (39.0-53.0) % MCHC (31.0-37.0) g/dL RDW (11.5-15.5) % Neutrophils # (1.3-7.7) k/uL Lymphocytes # (1.0-4.8) k/uL Carbon Dioxide (22-30) mmol/L BUN (9-20) mg/dL Creatinine (0.66-1.25) mg/dL Glucose (74-99) mg/dL POC Glucose (mg/dL) 130 H 130 H 39 L (75-99) mg/dL 08/14/20 08/14/20 08/14/20 Range/Units 14:10 15:13 15:58 WBC (3.8-10.6) k/uL RBC (4.30-5.90) m/uL Hgb (13.0-17.5) gm/dL Hct (39.0-53.0) % MCHC (31.0-37.0) g/dL RDW (11.5-15.5) % Neutrophils # (1.3-7.7) k/uL Lymphocytes # (1.0-4.8) k/uL Carbon Dioxide (22-30) mmol/L BUN (9-20) mg/dL Creatinine (0.66-1.25) mg/dL Glucose (74-99) mg/dL POC Glucose (mg/dL) 162 H 170 H 144 H (75-99) mg/dL 08/14/20 08/14/20 08/14/20 Range/Units 16:57 18:35 19:12 WBC (3.8-10.6) k/uL RBC (4.30-5.90) m/uL Hgb (13.0-17.5) gm/dL Hct (39.0-53.0) % MCHC (31.0-37.0) g/dL RDW (11.5-15.5) % Neutrophils # (1.3-7.7) k/uL Lymphocytes # (1.0-4.8) k/uL Carbon Dioxide (22-30) mmol/L BUN (9-20) mg/dL Creatinine (0.66-1.25) mg/dL Glucose (74-99) mg/dL POC Glucose (mg/dL) 146 H 115 H 160 H (75-99) mg/dL 08/14/20 08/14/20 08/14/20 Range/Units 20:10 21:31 22:57 WBC (3.8-10.6) k/uL RBC (4.30-5.90) m/uL Hgb (13.0-17.5) gm/dL Hct (39.0-53.0) % MCHC (31.0-37.0) g/dL RDW (11.5-15.5) % Neutrophils # (1.3-7.7) k/uL Lymphocytes # (1.0-4.8) k/uL Carbon Dioxide (22-30) mmol/L BUN (9-20) mg/dL Creatinine (0.66-1.25) mg/dL Glucose (74-99) mg/dL POC Glucose (mg/dL) 151 H 152 H 146 H (75-99) mg/dL 08/15/20 08/15/20 08/15/20 Range/Units 00:19 02:16 03:30 WBC (3.8-10.6) k/uL RBC (4.30-5.90) m/uL Hgb (13.0-17.5) gm/dL Hct (39.0-53.0) % MCHC (31.0-37.0) g/dL RDW (11.5-15.5) % Neutrophils # (1.3-7.7) k/uL Lymphocytes # (1.0-4.8) k/uL Carbon Dioxide 38 H (22-30) mmol/L BUN 55 H (9-20) mg/dL Creatinine 1.40 H (0.66-1.25) mg/dL Glucose 141 H (74-99) mg/dL POC Glucose (mg/dL) 132 H 132 H (75-99) mg/dL 08/15/20 08/15/20 08/15/20 Range/Units 03:30 03:30 05:37 WBC 10.9 H (3.8-10.6) k/uL RBC 3.09 L (4.30-5.90) m/uL Hgb 9.2 L (13.0-17.5) gm/dL Hct 29.8 L (39.0-53.0) % MCHC 30.9 L (31.0-37.0) g/dL RDW 16.4 H (11.5-15.5) % Neutrophils # 9.4 H (1.3-7.7) k/uL Lymphocytes # 0.4 L (1.0-4.8) k/uL Carbon Dioxide (22-30) mmol/L BUN (9-20) mg/dL Creatinine (0.66-1.25) mg/dL Glucose (74-99) mg/dL POC Glucose (mg/dL) 136 H 112 H (75-99) mg/dL 08/15/20 Range/Units 07:09 WBC (3.8-10.6) k/uL RBC (4.30-5.90) m/uL Hgb (13.0-17.5) gm/dL Hct (39.0-53.0) % MCHC (31.0-37.0) g/dL RDW (11.5-15.5) % Neutrophils # (1.3-7.7) k/uL Lymphocytes # (1.0-4.8) k/uL Carbon Dioxide (22-30) mmol/L BUN (9-20) mg/dL Creatinine (0.66-1.25) mg/dL Glucose (74-99) mg/dL POC Glucose (mg/dL) 163 H (75-99) mg/dL Assessment and Plan Plan: 1 Symptomatic coronary artery disease, status post two-vessel coronary artery bypass grafting with PABLO to the LAD, SVG to the PDA on 07/18/2020 2 Postoperative atrial fibrillation with rapid ventricular response , back and forth between sinus and atrial fibrillation and the patient is on Amiodarone and metoprolol 25 mg by mouth 3 times a day. Current rhythm is sinus 3 History of coronary artery disease with previous stent placement 4 Intraperitoneal hemorrhage status post exploratory laparotomy, washout of peritoneal cavity and ileostomy on 08/02/2020. Previous surgery on 07/24/2020 for ischemic bowel with evidence of pneumo stasis status post small bowel resection 5 TPN for nutritional support and the patient has an NGT in place. The plan is to gradually wean off the TPN and advance the Glucerna for enteral feeding and nutritional support. 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 9 Acute on chronic kidney disease stage III at baseline creatinine is 1.4 10 Diabetes mellitus type 2, currently on insulin drip running at 5.5 units an hour 11 Postoperative acute blood loss anemia, expected outcome of open heart surgery , Current hemoglobin is stable 12 History of hypertension 13 History of hyperlipidemia 14 Positive sputum culture for Pseudomonas completed his antibiotic treatment with IV Zosyn 15 Postoperative prolonged mechanical ventilation, extubated currently on 1 L of oxygen by nasal cannula 16 Generalized debility and overall muscle weakness secondary to above Plan Encouraged use of incentive spirometer Pulmonary toileting and will consider a therapeutic thoracentesis at a later stage, obtain ultrasound of the pleural fluid and obtain marking Keep metoprolol and aspirin for now Continue amiodarone regarding the atrial fibrillation prophylaxis the current rhythm is atrial fibrillation. Rate is controlled for now and the patient started on Keep NGT in place and the patient was started on Glucerna at the rate of 30 mL an hour Continue TPN for nutritional support, and it used to TPN down to 45 Monitor the output from the ileostomy site Insulin drip at the rate of 5.5 units an hour Continue the current antibiotic coverage including a combination of IV daptomycin and atelectasis. The patient had a positive sputum culture for Pseudomonas on 07/24/2020 and a repeat sputum from 08/03/2020 showed Radha albicans. Blood cultures of been negative for any microbial growth. Meropenem has been discontinued. Physical therapy is an progress and the patient is able to sit up at the edge of the bed
[2020-08-15] MEDS ORDERED: ACETAMINOPHEN ORAL SUSP (PEDS) 3,840 MG/120 ML BOTTLE NG-TUBE PRN (08:07)
[2020-08-15 08:15] LABS: Glucose,Whole Blood 133 mg/dL (75-99)
[2020-08-15] MEDS: AMIODARONE 200 MG TAB PO SCH ×2 (08:27→22:07)
[2020-08-15] MEDS: ANIDULAFUNGIN 100 MG in SODIUM CHLORIDE 0.9% 100 ML IVPB SCH (08:27)
[2020-08-15] MEDS: ALVIMOPAN 12 MG CAPSULE PO SCH ×2 (08:27→22:10)
[2020-08-15] MEDS: ASPIRIN 81 MG PO SCH (08:28)
[2020-08-15] MEDS: LEVOTHYROXINE IVP 100 MCG/5 ML VIAL IV SCH (08:28)
--- NOTE | 2020-08-15 08:33 | XR ---
EXAMINATION TYPE: XR chest 1V portable DATE OF EXAM: 08/15/2020 COMPARISON: 08/14/2020 INDICATION: Postop CABG TECHNIQUE: Single frontal view of the chest is obtained. FINDINGS: The heart size is enlarged. The pulmonary vasculature is normal. Bibasilar infiltrates are present. Findings are worsening. Small pleural effusions are present IMPRESSION: 1. Small pleural effusions with worsening bibasilar infiltrates. 2. Nasogastric tube transverses the thorax.
[2020-08-15] MEDS: METOPROLOL TARTRATE 50 MG TAB PO SCH ×2 (08:34→22:07)
[2020-08-15] MEDS: PANTOPRAZOLE 40 MG/10 ML VIAL IVP SCH ×2 (08:35→22:07)
--- NOTE | 2020-08-15 08:39 | US ---
EXAMINATION TYPE: US chest DATE OF EXAM: 08/15/2020 COMPARISON: NONE CLINICAL HISTORY: Pleural effusions. post CABG ICU patient with effusions, patient unable to move wit hout additional help to sit forward TECHNIQUE: Targeted ultrasound of the posterior lower Bilateral EXAM MEASUREMENTS: Right Pleural Effusion pocket size: 0 cm Left Pleural Effusion pocket size: 6.5 cm Left skin surface to fluid distance: 3.5 cm Right side NOT marked Left side marked for possible thoracentesis outside the dept. Pulmonologists are able to review the images in the patient?s EMR. IMPRESSIONS: 1. Left pleural effusion
[2020-08-15 09:08] LABS: Glucose,Whole Blood 181 mg/dL (75-99)
[2020-08-15] MEDS ORDERED: FUROSEMIDE 10 MG/ML 4 ML VIAL IV STA (09:45)
--- NOTE | 2020-08-15 09:54 | P.PN ---
Subjective Progress Note Date: 08/15/20 Principal diagnosis: Symptomatic triple-vessel coronary artery disease, mild left ventricular dysfunction. Past medical history significant for hypertension, hyperlipidemia, chronic obstructive pulmonary disease with preoperative FEV1 of 53% of predicted value, coronary artery disease with previous stenting to his right coronary artery in 2002, hypothyroid status post partial thyroidectomy, previous tobacco dependence quit smoking 20 years ago, type 2 diabetes mellitus with a preoperative hemoglobin A1c of 5.2%, and chronic kidney disease stage III with a baseline creatinine of 1.4-1.5, family history of premature coronary artery disease with a brother having a CABG at less than 50 years of age. POD #28 double coronary artery bypass grafting using the left internal mammary artery to left anterior descending coronary artery, a reverse greater saphenous vein graft from the aorta to the posterior descending coronary artery. Exclusion of the left atrial appendage using a 35 mm Atriclip, endoscopic harvesting of the right greater saphenous vein, graft flow measurement using the [employer] SYSTEM[employer] system, intraoperative transesophageal echocardiogram and epi-aortic scanning. Postoperative acute blood loss anemia, an expected outcome from hemodilution and cardiopulmonary bypass. Postoperative paroxysmal atrial fibrillation, unexpected. Postoperative pneumoperitoneum, unexpected. Acute on chronic kidney disease secondary to acute tubular necrosis. Pneumatosis of the small bowel. POD #22 ischemic bowel, small bowel resection. Prolonged mechanical ventilation, unexpected. Acute hypoxic respiratory failure requiring reintubation, unexpected. Postoperative hypotension requiring initiation of norepinephrine drip, unexpected, resolved. Acute abdomen, intraperitoneal hemorrhage. Postoperative day #13 exploratory laparotomy, washout of peritoneal cavity, ileostomy with small bowel resection. The patient was seen in follow-up today 08/15/2020 at his bedside in the intensive care unit. The patient is currently sitting up to the bedside chair, he is awake, alert and oriented 3. He denies any complaints of pain or shortness of breath at this time. Remains hemodynamically stable and is currently on no inotropic or pressor support. NG tube remains in place with tube feedings Glucerna infusing at 20 mL per hour with 10 mL residuals from the NG tube in the last 12 hours. His right lower quadrant abdominal ileostomy with pink stoma remains draining some liquid light brown drainage with 450 mL output in the last 8 hours. TPN continues to infuse at 55 mL per hour per his right arm PICC line for nutritional support and is slowly being weaned off as the tube feeding rate increases. Wound VAC dressing to his midline abdominal incision remains in place, no air leak present. The wound VAC dressing was changed yesterday 08/14/2020. His bedside nurse this morning reports that he did stand at his bedside this morning with assistance from nursing staff. Laboratory results this morning show a WBC count 10.9, hemoglobin 9.2, platelets 288, BUN 55, creatinine 1.40. Bedside telemetry showing normal sinus rhythm heart rate 84. He has been afebrile the last 24 hours. Oxygen saturation are 95% on 1 L nasal cannula and he is achieving 500 mL on his incentive spirometry with much encouragement. He continues to have a strong loose productive cough with whitish thin sputum. Objective - Vital Signs Vital signs: Vital Signs Temp 97.7 F 08/15/20 08:00 Pulse 80 08/15/20 09:00 Resp 24 08/15/20 09:00 BP 145/100 08/15/20 08:00 Pulse Ox 94 L 08/15/20 09:00 Intake & Output 08/14/20 08/15/20 08/15/20 18:59 06:59 18:59 Intake Total 1232.844 5308.833 372.558 Output Total 2049 1585 210 Balance -683.766 -225.167 162.558 Intake: IV 976 779 274 Anidulafungin 100 mg In 100 100 Sodium Chloride 0.9% 100 ml @ 84 mls/hr IVPB DAILY W[facility] Rx#:[id number] Fat Emulsion 20% 250 ml @ 63 20.833 mls/hr IV DAILY@ 1200 [facility] Rx#:[id number] Sodium Chloride 0.9% 1, 100 20 20 000 ml @ 20 mls/hr IV . Q24H [facility] Rx#:[id number] TPN 740 660 145 pressure bag 36 36 9 Intake, IV Titration 35.234 250.833 8.558 Amount Insulin Regular 100 unit 35.234 50.833 8.558 In Sodium Chloride 0.9% 100 ml @ Per Protocol IV .Q0M [facility] Rx#:[id number] Sodium Acetate 20 meq 200 Potassium Acetate 28 meq In Amino Acids 5 %/ Dextrose 20 % 1,000 ml @ 75 mls/hr IV .BY DURATION WADE Rx#:[id number] Tube Feeding 205 240 60 Other 150 90 30 Output: Urine 2050 1135 210 Stool 450 Other: Voiding Method Indwelling Catheter Indwelling Catheter Indwelling Catheter ABP, PAP, CO, CI - Last Documented Arterial Blood Pressure 103/45 Pulmonary Artery Pressure 33/14 Cardiac Output 6.7 Cardiac Index 3.1 - Constitutional General appearance: Present: cooperative, no acute distress - EENT Eyes: Present: normal appearance. Absent: scleral icterus ENT: Present: hearing grossly normal - Neck Details: Neck is supple, no JVD, no lymphadenopathy. - Respiratory Details: Lung sounds essentially clear throughout, diminished to his bilateral bases with scattered crackles. Respirations are symmetrical and nonlabored. Oxygen saturation are 95% on 1 L nasal cannula. Achieving 500 mL on his incentive spirometry with much encouragement. - Cardiovascular Details: Regular rhythm and rate. S1 and S2 present, negative for S3, gallop or murmur. Sternum is stable. Bedside telemetry showing normal sinus rhythm heart rate 84 BPM. Heart hugger is in place. Knee-high ALPHONSO hose and sequential compression devices in place to his bilateral lower extremities. Left radial arterial line in place and functioning. Right arm PICC line in place and functioning. Anasarca continues to improve. - Gastrointestinal Gastrointestinal Comment(s): Abdomen is soft, nontender and nondistended. Hypoactive bowel sounds present in all 4 abdominal quadrants. No guarding or rigidity. No organomegaly a ppreciated. Right lower quadrant ileostomy with pink stoma, 450 mL output in the last 8 hours of light brown drainage. TPN remains infusing per his right arm PICC line at 55 mL per hour. NG tube in place with Glucerna tube feeding infusing at 20 mL/h, 10 mL of residuals in the last 8 hours from the NG tube. - Genitourinary Genitourinary Comment(s): Villafana catheter for accurate I&O. Draining clear danilo urine. 730 mL output in the last 8 hours. - Integumentary Integumentary Comment(s): Skin is warm and dry. No clubbing or cyanosis is present. Midline sternal incision is clean, dry and approximated. No drainage or redness present. Right lower extremity EVH sites are clean, dry and approximated. No drainage or redness is present. Midline abdominal incision with wound VAC in place, no air leak is present. Dressing is clean, dry and intact. Stage II ulcer to his coccyx clean with no drainage. Scab area to his right heel clean and dry. - Neurologic Neurologic: Present: CNII-XII intact. Absent: focal deficits - Musculoskeletal Musculoskeletal: Present: generalized weakness, strength equal bilaterally - Psychiatric Psychiatric Comment(s): Flat affect. Psychiatric: Present: A&O x's 3, intact judgment & insight - Allied health notes Allied health notes reviewed: nursing - Labs CBC & Chem 7: 08/15/20 03:30 08/15/20 03:30 Labs: Abnormal Lab Results - Last 24 Hours (Table) 08/14/20 08/14/20 08/14/20 Range/Units 10:09 11:16 12:23 WBC (3.8-10.6) k/uL RBC (4.30-5.90) m/uL Hgb (13.0-17.5) gm/dL Hct (39.0-53.0) % MCHC (31.0-37.0) g/dL RDW (11.5-15.5) % Neutrophils # (1.3-7.7) k/uL Lymphocytes # (1.0-4.8) k/uL Carbon Dioxide (22-30) mmol/L BUN (9-20) mg/dL Creatinine (0.66-1.25) mg/dL Glucose (74-99) mg/dL POC Glucose (mg/dL) 145 H 130 H 130 H (75-99) mg/dL 08/14/20 08/14/20 08/14/20 Range/Units 13:35 14:10 15:13 WBC (3.8-10.6) k/uL RBC (4.30-5.90) m/uL Hgb (13.0-17.5) gm/dL Hct (39.0-53.0) % MCHC (31.0-37.0) g/dL RDW (11.5-15.5) % Neutrophils # (1.3-7.7) k/uL Lymphocytes # (1.0-4.8) k/uL Carbon Dioxide (22-30) mmol/L BUN (9-20) mg/dL Creatinine (0.66-1.25) mg/dL Glucose (74-99) mg/dL POC Glucose (mg/dL) 39 L 162 H 170 H (75-99) mg/dL 08/14/20 08/14/20 08/14/20 Range/Units 15:58 16:57 18:35 WBC (3.8-10.6) k/uL RBC (4.30-5.90) m/uL Hgb (13.0-17.5) gm/dL Hct (39.0-53.0) % MCHC (31.0-37.0) g/dL RDW (11.5-15.5) % Neutrophils # (1.3-7.7) k/uL Lymphocytes # (1.0-4.8) k/uL Carbon Dioxide (22-30) mmol/L BUN (9-20) mg/dL Creatinine (0.66-1.25) mg/dL Glucose (74-99) mg/dL POC Glucose (mg/dL) 144 H 146 H 115 H (75-99) mg/dL 08/14/20 08/14/20 08/14/20 Range/Units 19:12 20:10 21:31 WBC (3.8-10.6) k/uL RBC (4.30-5.90) m/uL Hgb (13.0-17.5) gm/dL Hct (39.0-53.0) % MCHC (31.0-37.0) g/dL RDW (11.5-15.5) % Neutrophils # (1.3-7.7) k/uL Lymphocytes # (1.0-4.8) k/uL Carbon Dioxide (22-30) mmol/L BUN (9-20) mg/dL Creatinine (0.66-1.25) mg/dL Glucose (74-99) mg/dL POC Glucose (mg/dL) 160 H 151 H 152 H (75-99) mg/dL 08/14/20 08/15/20 08/15/20 Range/Units 22:57 00:19 02:16 WBC (3.8-10.6) k/uL RBC (4.30-5.90) m/uL Hgb (13.0-17.5) gm/dL Hct (39.0-53.0) % MCHC (31.0-37.0) g/dL RDW (11.5-15.5) % Neutrophils # (1.3-7.7) k/uL Lymphocytes # (1.0-4.8) k/uL Carbon Dioxide (22-30) mmol/L BUN (9-20) mg/dL Creatinine (0.66-1.25) mg/dL Glucose (74-99) mg/dL POC Glucose (mg/dL) 146 H 132 H 132 H (75-99) mg/dL 08/15/20 08/15/20 08/15/20 Range/Units 03:30 03:30 03:30 WBC 10.9 H (3.8-10.6) k/uL RBC 3.09 L (4.30-5.90) m/uL Hgb 9.2 L (13.0-17.5) gm/dL Hct 29.8 L (39.0-53.0) % MCHC 30.9 L (31.0-37.0) g/dL RDW 16.4 H (11.5-15.5) % Neutrophils # 9.4 H (1.3-7.7) k/uL Lymphocytes # 0.4 L (1.0-4.8) k/uL Carbon Dioxide 38 H (22-30) mmol/L BUN 55 H (9-20) mg/dL Creatinine 1.40 H (0.66-1.25) mg/dL Glucose 141 H (74-99) mg/dL POC Glucose (mg/dL) 136 H (75-99) mg/dL 08/15/20 08/15/20 08/15/20 Range/Units 05:37 07:09 08:14 WBC (3.8-10.6) k/uL RBC (4.30-5.90) m/uL Hgb (13.0-17.5) gm/dL Hct (39.0-53.0) % MCHC (31.0-37.0) g/dL RDW (11.5-15.5) % Neutrophils # (1.3-7.7) k/uL Lymphocytes # (1.0-4.8) k/uL Carbon Dioxide (22-30) mmol/L BUN (9-20) mg/dL Creatinine (0.66-1.25) mg/dL Glucose (74-99) mg/dL POC Glucose (mg/dL) 112 H 163 H 133 H (75-99) mg/dL 08/15/20 Range/Units 08:56 WBC (3.8-10.6) k/uL RBC (4.30-5.90) m/uL Hgb (13.0-17.5) gm/dL Hct (39.0-53.0) % MCHC (31.0-37.0) g/dL RDW (11.5-15.5) % Neutrophils # (1.3-7.7) k/uL Lymphocytes # (1.0-4.8) k/uL Carbon Dioxide (22-30) mmol/L BUN (9-20) mg/dL Creatinine (0.66-1.25) mg/dL Glucose (74-99) mg/dL POC Glucose (mg/dL) 181 H (75-99) mg/dL - Imaging and Cardiology Chest x-ray: report reviewed, image reviewed Assessment and Plan Assessment: 1. Heavily calcified symptomatic triple-vessel coronary artery disease, status post 2 vessel coronary artery bypass grafting surgery 2. History of coronary artery disease with stent placement to his right coronary artery in 2002 3. Mild left ventricular dysfunction 4. History of hypertension 5. History of hyperlipidemia 6. Hypothyroid status post partial thyroidectomy 7. Chronic obstructive pulmonary disease with preoperative FEV1 53% of predicted value 8. Remote history of tobacco dependence quit smoking 20 years ago 9. Acute on chronic kidney disease stage III with a baseline creatinine of 1.4- 1.5 10. Diabetes mellitus type 2 with a preoperative hemoglobin A1c 5.2% 11. Postoperative acute blood loss anemia, expected 12. Postoperative paroxysmal atrial fibrillation, unexpected 13. Remote history of pneumonia 14. Postoperative paroxysmal atrial fibrillation, unexpected, status post exclusion of the left atrial appendage 15. Pneumoperitoneum, unexpected 16. Pneumatosis of the small bowel, ischemic bowel, status post resection of the small bowel 17. Positive sputum culture for pseudomonas fluorescens 18. Postoperative prolonged mechanical ventilation 19. Acute hypoxic respiratory failure requiring reintubation, unexpected 20. Postoperative hypotension requiring initiation of norepinephrine drip, unexpected 21. Acute abdomen, intraperitoneal hemorrhage, S/P exploratory laparotomy, washout of peritoneal cavity, ileostomy with small bowel resection 22. Postoperative thrombocytopenia, unexpected 23. Generalized debility and overall muscle weakness secondary to above 24. TPN and tube feedings for nutritional support Plan: 1. Continue low dose aspirin, metoprolol tartrate was increased yesterday to 50 mg per NG tube twice a day. We will increase metoprolol tartrate as tolerated, hold for systolic blood pressure less than 100 mmHg and heart rate less than 60. 2. Continue amiodarone 200 mg per NG tube twice a day for atrial fibrillation prophylaxis. 3. Wean oxygen as tolerated. Encourage use of his incentive spirometry 10 times every hour while awake. Bronchodilator management per pulmonary for/critical care medicine. 4. Continue to monitor daily labs and chest x-rays. Replace electrolytes per protocol. 5. Continue GI/DVT prophylaxis. 6. Pain control with current medication regimen. Discontinue Dilaudid, start acetaminophen suspension 650 mg per NG tube every 6 hours when necessary pain. 7. Insulin management per primary care service. 8. Continue TPN at 45 mL per hour. Keep the NG tube, continue tube feedings of Glucerna per dietitian recommendations currently increased to 30 mL per hour, i ncrease tube feedings as tolerated to goal rate. Speech therapy is following. General surgery recommendations for tube feedings noted and appreciated. Ileostomy had 450 mL output in the last 8 hours. 9. Nephrology following. Avoid nephrotoxic agents. Urine output excellent, 730 mL output last 8 hours. BUN 55 and creatinine 1.40 today. 10. Strict accurate intake and output, daily weights. 11. Continue IV daptomycin, and Eraxis per infectious disease recommendations. Positive sputum culture for pseudomonas fluorescens on 07/24/2020. Sputum culture from 08/03/2020 showing Radha albicans. Blood culture results show no growth after 48 hours. 12. Continue Villafana catheter for accurate I's and O's. 13. Continue wound VAC to midline abdominal incision. Dressing changes Friday and Friday, managed by general surgery. 14. Albumin 25% 12.5 g 50 mL 1 now followed by Lasix 40 mg IV 1. 15. Increase activity as tolerated, out of bed to chair 3 times a day. Physical, occupational therapy and cardiac rehabilitation following. 16. Ultrasound chest with markings for possible thoracentesis. 17. More recommendations to follow based on patient's clinical course. Time with Patient: Greater than 30
[2020-08-15] MEDS ORDERED: ALBUMIN HUMAN 25% 50 ML in EMPTY BAG 1 BAG IVPB ONE (10:00)
[2020-08-15 10:22] LABS: Glucose,Whole Blood 132 mg/dL (75-99)
--- NOTE | 2020-08-15 10:31 | P.PN ---
Subjective Progress Note Date: 08/15/20 Pt sitting in chair, able to converse normally, plan for thoracentesis today. Objective - Vital Signs Vital signs: Vital Signs Temp 97.7 F 08/15/20 08:00 Pulse 80 08/15/20 09:00 Resp 24 08/15/20 09:00 BP 145/100 08/15/20 08:00 Pulse Ox 94 L 08/15/20 09:00 Intake & Output 08/14/20 08/15/20 08/15/20 18:59 06:59 18:59 Intake Total 8230.711 5185.833 372.558 Output Total 2049 1585 210 Balance -683.766 -225.167 162.558 Intake: IV 976 779 274 Anidulafungin 100 mg In 100 100 Sodium Chloride 0.9% 100 ml @ 84 mls/hr IVPB DAILY [facility] Rx#:[id number] Fat Emulsion 20% 250 ml @ 63 20.833 mls/hr IV DAILY@ 1200 [facility] Rx#:[id number] Sodium Chloride 0.9% 1, 100 20 20 000 ml @ 20 mls/hr IV . Q24H [facility] Rx#:[id number] TPN 740 660 145 pressure bag 36 36 9 Intake, IV Titration 35.234 250.833 8.558 Amount Insulin Regular 100 unit 35.234 50.833 8.558 In Sodium Chloride 0.9% 100 ml @ Per Protocol IV .Q0M [facility] Rx#:[id number] Sodium Acetate 20 meq 200 Potassium Acetate 28 meq In Amino Acids 5 %/ Dextrose 20 % 1,000 ml @ 75 mls/hr IV .BY DURATION WADE Rx#:[id number] Tube Feeding 205 240 60 Other 150 90 30 Output: Urine 0 1135 210 Stool 450 Other: Voiding Method Indwelling Catheter Indwelling Catheter Indwelling Catheter ABP, PAP, CO, CI - Last Documented Arterial Blood Pressure 103/45 Pulmonary Artery Pressure 33/14 Cardiac Output 6.7 Cardiac Index 3.1 - Exam Gen: awake, alert HEENT: normocephalic, atraumatic, moist mucous membranes, + central line Resp: adequate lung expansion, symmetric breathing, no accessory muscle use CVS: good distal perfusion x 4, RRR, no murmurs, clicks, gallops GI: soft, NTTP, ND : no SPT, no CVAT, malagon catheter is present MSK: + pitting edema, no clubbing Neuro: non-focal, no sensory deficits, appropriate tone - Labs CBC & Chem 7: 08/15/20 03:30 08/15/20 03:30 Labs: Abnormal Lab Results - Last 24 Hours (Table) 08/14/20 08/14/20 08/14/20 Range/Units 11:16 12:23 13:35 WBC (3.8-10.6) k/uL RBC (4.30-5.90) m/uL Hgb (13.0-17.5) gm/dL Hct (39.0-53.0) % MCHC (31.0-37.0) g/dL RDW (11.5-15.5) % Neutrophils # (1.3-7.7) k/uL Lymphocytes # (1.0-4.8) k/uL Carbon Dioxide (22-30) mmol/L BUN (9-20) mg/dL Creatinine (0.66-1.25) mg/dL Glucose (74-99) mg/dL POC Glucose (mg/dL) 130 H 130 H 39 L (75-99) mg/dL 08/14/20 08/14/20 08/14/20 Range/Units 14:10 15:13 15:58 WBC (3.8-10.6) k/uL RBC (4.30-5.90) m/uL Hgb (13.0-17.5) gm/dL Hct (39.0-53.0) % MCHC (31.0-37.0) g/dL RDW (11.5-15.5) % Neutrophils # (1.3-7.7) k/uL Lymphocytes # (1.0-4.8) k/uL Carbon Dioxide (22-30) mmol/L BUN (9-20) mg/dL Creatinine (0.66-1.25) mg/dL Glucose (74-99) mg/dL POC Glucose (mg/dL) 162 H 170 H 144 H (75-99) mg/dL 08/14/20 08/14/20 08/14/20 Range/Units 16:57 18:35 19:12 WBC (3.8-10.6) k/uL RBC (4.30-5.90) m/uL Hgb (13.0-17.5) gm/dL Hct (39.0-53.0) % MCHC (31.0-37.0) g/dL RDW (11.5-15.5) % Neutrophils # (1.3-7.7) k/uL Lymphocytes # (1.0-4.8) k/uL Carbon Dioxide (22-30) mmol/L BUN (9-20) mg/dL Creatinine (0.66-1.25) mg/dL Glucose (74-99) mg/dL POC Glucose (mg/dL) 146 H 115 H 160 H (75-99) mg/dL 08/14/20 08/14/20 08/14/20 Range/Units 20:10 21:31 22:57 WBC (3.8-10.6) k/uL RBC (4.30-5.90) m/uL Hgb (13.0-17.5) gm/dL Hct (39.0-53.0) % MCHC (31.0-37.0) g/dL RDW (11.5-15.5) % Neutrophils # (1.3-7.7) k/uL Lymphocytes # (1.0-4.8) k/uL Carbon Dioxide (22-30) mmol/L BUN (9-20) mg/dL Creatinine (0.66-1.25) mg/dL Glucose (74-99) mg/dL POC Glucose (mg/dL) 151 H 152 H 146 H (75-99) mg/dL 08/15/20 08/15/20 08/15/20 Range/Units 00:19 02:16 03:30 WBC (3.8-10.6) k/uL RBC (4.30-5.90) m/uL Hgb (13.0-17.5) gm/dL Hct (39.0-53.0) % MCHC (31.0-37.0) g/dL RDW (11.5-15.5) % Neutrophils # (1.3-7.7) k/uL Lymphocytes # (1.0-4.8) k/uL Carbon Dioxide 38 H (22-30) mmol/L BUN 55 H (9-20) mg/dL Creatinine 1.40 H (0.66-1.25) mg/dL Glucose 141 H (74-99) mg/dL POC Glucose (mg/dL) 132 H 132 H (75-99) mg/dL 08/15/20 08/15/20 08/15/20 Range/Units 03:30 03:30 05:37 WBC 10.9 H (3.8-10.6) k/uL RBC 3.09 L (4.30-5.90) m/uL Hgb 9.2 L (13.0-17.5) gm/dL Hct 29.8 L (39.0-53.0) % MCHC 30.9 L (31.0-37.0) g/dL RDW 16.4 H (11.5-15.5) % Neutrophils # 9.4 H (1.3-7.7) k/uL Lymphocytes # 0.4 L (1.0-4.8) k/uL Carbon Dioxide (22-30) mmol/L BUN (9-20) mg/dL Creatinine (0.66-1.25) mg/dL Glucose (74-99) mg/dL POC Glucose (mg/dL) 136 H 112 H (75-99) mg/dL 08/15/20 08/15/20 08/15/20 Range/Units 07:09 08:14 08:56 WBC (3.8-10.6) k/uL RBC (4.30-5.90) m/uL Hgb (13.0-17.5) gm/dL Hct (39.0-53.0) % MCHC (31.0-37.0) g/dL RDW (11.5-15.5) % Neutrophils # (1.3-7.7) k/uL Lymphocytes # (1.0-4.8) k/uL Carbon Dioxide (22-30) mmol/L BUN (9-20) mg/dL Creatinine (0.66-1.25) mg/dL Glucose (74-99) mg/dL POC Glucose (mg/dL) 163 H 133 H 181 H (75-99) mg/dL 08/15/20 Range/Units 10:20 WBC (3.8-10.6) k/uL RBC (4.30-5.90) m/uL Hgb (13.0-17.5) gm/dL Hct (39.0-53.0) % MCHC (31.0-37.0) g/dL RDW (11.5-15.5) % Neutrophils # (1.3-7.7) k/uL Lymphocytes # (1.0-4.8) k/uL Carbon Dioxide (22-30) mmol/L BUN (9-20) mg/dL Creatinine (0.66-1.25) mg/dL Glucose (74-99) mg/dL POC Glucose (mg/dL) 132 H (75-99) mg/dL Assessment and Plan Assessment: 1. CAD s/p CABG with 2v bypass, PABLO to LAD, and SVG to posterior decending coronary artery 2. Paroxysmal Atrial Fibrillation, with RVR 3. 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 Pneumatosis, Ischemic Bowel, s/p small bowel resection 5. Acute Blood Loss Anemia, post-operative, resolved 6. Pneumoperitoneum secondary to chest tubes, resolving 7. CONNOR superimposed on CKD, stage III, worsening 8. Hypertension, essential 9. Hyperlipidemia 10. Type II DM, uncontrolled 11. Hypothyroidism 12. Obesity, BMI 30.5 13. Hyponatremia and Hyperkalemia 80 year old man with history of COPD, CKD III, HTN/HLD/CAD/DM, Obesity presented for symptomatic CAD and underwent 2v CABG with post-operative course complicated by respiratory failure secondary to COPD exacerbation, blood loss anemia, paroxysmal atrial fibrillation with RVR, and metabolic derangements. DM 2 - hold metformin - currently on insulin gtt - Blood sugars currently controlled, follow blood sugars closely - A1C from 06/21/2020 5.2, anticipate discharge home back on metformin which may be able to come off in the near future in the outpatient setting. Small Bowel Ischemia - surgery consult - POD #22 s/p resection/anastamosis, POD #13 anastamosis take down and diverting ileostomy - on daptomycin/eraxis with recovering WBC count - MRSA nares negative - on Alvimopan, consider off-titrating and switching to reglan if needed. A-fib with RVR On metoprolol 50mg BID On amiodarone 200mg BID Off cardizem gtt Eliquis held due to bleeding, now on heparin q8h for DVT PPx; can consider restarting eliquis now that hgb has been stable CONNOR on CKD stage III, resolved Baseline cr 1.4-1.5, Likely cardiorenal syndrome, patient received contrast earlier in the admission. Try to avoid IV fluids Recheck in am Avoid nephrotoxic meds Nephrology is following Acute hyponatremia Likely sec to renal failure Monitor Nephrology consulted, checking urine and plasma osmolalities as well as urine sodium. Hyperkalemia Kayexalate 15 g, follow K in a.m. Pneumoperitoneum suspect secondary to mediastinal chest tubes -Tube d/melody -Resolved. Constipation On Senokot, MiraLAX Had a bowel movement today Acute blood loss anemia and thrombocytopenia, anticipated outcome of surgery - follow CBC - transfuse as indicated COPD with acute exacerbation, resolved - steroid course completed - DuoNebs - on spiriva and advair at home Coronary artery disease -Status post coronary artery bypass grafting -Cardiothoracic and cardiology following HTN - meds per CT surgery - follow BP Hypothyroidism status post partial thyroidectomy - synthroid Morbid obesity with BMI 30.5 -Outpatient structured weight loss Chronic: ADDY Jacobs's Thank you for allowing us to participate in the care of this pleasant patient. Do not hesitate to contact us with questions. Someone can be reached from the [facility] hospitalist group all hours of the day at [phone] or via [employer].
[2020-08-15 11:30] LABS: Glucose,Whole Blood 144 mg/dL (75-99)
[2020-08-15] MEDS: FAT EMULSION 20% 250 ML IV SCH (11:58)
[2020-08-15] MEDS: 1: MVI, ADULT NO.4 WITH VIT K 10 ML, TRACE (CONC-1ML/DOSE) 1 ML, SODIUM ACETATE 30 MEQ, IV SCH ×5 (12:02)
[2020-08-15 12:15] LABS: Glucose,Whole Blood 143 mg/dL (75-99)
--- NOTE | 2020-08-15 12:54 | P.PN ---
Progress Note - Text Progress Note Date: 08/15/20 Patient remained stable. He is receiving tube feeds. On exam her vital signs are still. Abdomen soft. Ileostomy function. Status post small bowel resection after CABG. For ischemic bowel. Patient has had slow improvement. He will continue receive supportive care.
[2020-08-15 13:08] LABS: Glucose,Whole Blood 133 mg/dL (75-99)
--- NOTE | 2020-08-15 14:15 | CDI ---
Documentation Clarification Form Date: 08/15/2020 02:01:39 PM From: Halima Tom RN, CCDS Admit Date: 07/18/2020 05:49:00 AM Patient Name: Francisco Tinoco Visit Number: [id number] ATTENTION: The Clinical Documentation Specialists (CDI) and [facility] Coding Staff appreciate your assistance in clarifying documentation. Please respond to the clarification below the line at the bottom and electronically sign. The CDI & [facility] Coding staff will review the response and follow-up if needed. Please note: Queries are made part of the Legal Health Record. If you have any questions, please contact the author of this message via ITS. Dr. Hunter Patient has been noted to be on TPN. Please provide clinically appropriate diagnosis to accurately reflect SOI/ROM History/Risk Factors: 2 vessel Cabg, COPD, acute hypoxic respiratory failure, Ischemic bowel s/p bowel resection with ileostomy, intraperitoneal hemorrhage, hypothyroidism, CONNOR on CKD stage 3, ABLA, thrombocytopenia, septic shock Clinical Indicators: Labs: 08/14 Total Protein 5.4 Albumin 2.6 Current BMI: 26.8 Insufficient energy intake: NPO since 08/02 Loss of subcutaneous fat: stage 2 pressure ulcer or right shoulder, stage 2 pressure ulcer to coccyx Loss of muscle mass: generalized debility and muscle weakness Fluid accumulation: +2 bilateral lower extremity edema Treatment: Dietary Consult: Initiated 07/19- recommendations made 08/02 for TPN Supplements: tube feeding recommendations made 08/13 per oxyacetylene burner TPN: Ordered 08/02 per dietary recommendations Lab monitoring: Am daily In your professional opinion, can you please clarify if these findings signify one of the following conditions? Moderate Protein-Calorie Malnutrition Severe Protein-Calorie Malnutrition Malnutrition following GI surgery Other condition, please specify Unable to determine (Last Revision: February 2019) Malnutrition following GI surgery MTDD
--- NOTE | 2020-08-15 14:22 | P.PCN ---
Date of Procedure: 08/15/20 Preoperative Diagnosis: Left-sided pleural effusion Postoperative Diagnosis: Left-sided pleural effusion Procedure(s) Performed: Thoracentesis Anesthesia: local Surgeon: Jeaneth Cui Pathology: none sent Condition: critical Disposition: ICU Operative Findings: A time out was performed and the chest x-ray was reviewed, the appropriate side was confirmed and marked. My hands were washed immediately prior to the procedure. I wore a surgical cap, mask with protective eyewear, sterile gown and sterile gloves throughout the procedure. The patient was prepped and draped in a sterile manner using chlorhexidine scrub after the appropriate level was percussed and confirmed by ultrasound. 1% lidocaine was used to anesthesize the skin, subcutaneous tissue, superior aspect of the rib periosteum and parietal pleura. A finder needle was then introduced over the superior aspect of the rib to locate the pleural fluid; 2colored fluid was aspirated at a depth of approximately 2 cm. A 10-blade scalpel was used to yuniel the skin at the insertion site. The [id number] needle was then introduced through the skin incision into the pleural space using negative aspiration pressure and the red colometric indicator to confirm appropriate positioning of the needle. The thoracentesis catheter was then threaded without difficulty.1400 ml of turbid blood colored fluid was removed without difficulty. The catheter was then removed. No immediate complications were noted during the procedure. A post- procedure chest x-ray is pending at the time of this note. The fluid will not be sent for studies. Estimated blood loss is 0cc. The chest x-ray showed adequate expansion of the left lung without evidence of any pneumothorax.
--- NOTE | 2020-08-15 14:27 | XR ---
EXAMINATION TYPE: XR chest 1V portable DATE OF EXAM: 08/15/2020 COMPARISON: Prior chest x-ray 08/15/2020 HISTORY: Status post left thoracentesis TECHNIQUE: Single frontal view of the chest is obtained. FINDINGS: There is improved aeration at the left lung base. No evident pneumothorax. There are overl ata artifacts present. No other significant interval change. IMPRESSION: No evident complication status post thoracentesis with above limitations.
--- NOTE | 2020-08-15 14:56 | PN ---
PROGRESS NOTE Patient is seen for followup for acute kidney injury. Patient's renal function has stabilized. Serum creatinine has been somewhat improved over the last few days. Today it is at 1.4. Patient has good urine output. However, he has been quite weak, lethargic and tachycardic. He will be having thoracenteses today. No history of fevers. PHYSICAL EXAMINATION: On examination today, blood pressure is 121/79, heart rate 77 per minute. Patient is afebrile. EXAMINATION OF THE HEART: S1, S2. EXAMINATION OF LUNGS: Decreased breath sounds at bases. Abdomen is soft. Examination of lower extremities shows no significant edema. [employer]OR EXAM: Grossly intact. LABS: Labs show hemoglobin 9.2, white cell count 10.9, sodium 141, potassium 4.2, BUN 55, serum creatinine 1.4. ASSESSMENT: 1. Acute kidney injury acute tubular necrosis, currently improved, renal function fairly stable. 2. Status post coronary artery bypass surgery, day #28. 3. Bowel obstruction, bowel ischemia, status post bowel resection and ileostomy, currently tolerating tube feeds. 4. Chronic kidney disease stage 3 baseline creatinine 1.2-1.5 secondary to nephrosclerosis. Previous UA from June was benign. 5. Atrial fibrillation, status post rapid ventricular response. 6. Volume overload, now improved. 7. Pleural effusion, scheduled for left thoracentesis. PLAN: Hold diuretics today. Repeat labs in a.m. MMODL / IJN: [id number] /
[2020-08-15 15:23] LABS: Glucose,Whole Blood 118 mg/dL (75-99)
[2020-08-15 17:03] LABS: Glucose,Whole Blood 119 mg/dL (75-99)
[2020-08-15 18:01] LABS: Glucose,Whole Blood 145 mg/dL (75-99)
[2020-08-15 19:02] LABS: Glucose,Whole Blood 146 mg/dL (75-99)
[2020-08-15 20:54] LABS: Glucose,Whole Blood 190 mg/dL (75-99)
[2020-08-15 21:07] LABS: Glucose,Whole Blood 191 mg/dL (75-99)
--- NOTE | 2020-08-15 21:29 | PN ---
PROGRESS NOTE DATE OF SERVICE: 08/15/2020 REASON FOR FOLLOWUP: Leukocytosis. INTERVAL HISTORY: The patient did spike a low-grade fever this evening. The patient was hemodynamically stable. The patient is status post thoracocentesis and removal of 1400 mL of fluid. The patient tolerated the procedure. No vomiting or diarrhea has been reported. PHYSICAL EXAMINATION: Blood pressure 122/62 with pulse of 103, temperature 100.3. He is 93% on 2 L nasal cannula. General description is an elderly male lying in bed in no distress. RESPIRATORY SYSTEM: Unlabored breathing with decreased breath sounds at the base. No wheeze. HEART: S1, S2. Regular rate and rhythm. ABDOMEN: Soft. No tenderness. LABS: Hemoglobin 9.1, white count 10.9, BUN of 55, creatinine 1.40. DIAGNOSTIC IMPRESSION AND PLAN: Patient with elevated white count, multifactorial, in this patient who did have an ischemic small bowel, status post resection, also with a catheter tip positive for Staphylococcus epidermidis. Sputum with pseudomonas. Patient is currently covered with daptomycin and Eraxis. With the low-grade fever today, blood cultures will be repeated as well as inflammatory markers and we will monitor clinical course closely. MMODL / IJN: [id number] /
[2020-08-15 22:17] LABS: Glucose,Whole Blood 178 mg/dL (75-99)
[2020-08-15 22:56] LABS: Glucose,Whole Blood 158 mg/dL (75-99)
[2020-08-16 00:01] LABS: Glucose,Whole Blood 149 mg/dL (75-99)
[2020-08-16] MEDS: SODIUM CHLORIDE 0.9% 1,000 ML IV SCH ×2 (00:11→16:54)
[2020-08-16] MEDS: INSULIN REGULAR 100 UNIT in SODIUM CHLORIDE 0.9% 100 ML IV SCH (00:12)
[2020-08-16] MEDS: HEPARIN SODIUM,PORCINE 5,000 UNIT/ML 1 ML VIAL SQ SCH ×3 (00:14→16:23)
[2020-08-16 00:57] LABS: Glucose,Whole Blood 128 mg/dL (75-99)
[2020-08-16 02:24] LABS: Glucose,Whole Blood 190 mg/dL (75-99)
[2020-08-16 03:12] LABS: Glucose,Whole Blood 155 mg/dL (75-99)
[2020-08-16 04:19] LABS: Glucose,Whole Blood 161 mg/dL (75-99)
[2020-08-16 04:29] LABS: Anisocytosis Slight; Basophils # (A) 0.1 k/uL (0-0.2); Basophils % (A) 1 %; Eosinophils # (A) 0.1 k/uL (0-0.7); Eosinophils % (A) 1 %; HCT 34.4 % (39.0-53.0); HGB 10.3 gm/dL (13.0-17.5); Hypochromasia Marked; Lymphocytes # (A) 0.6 k/uL (1.0-4.8); Lymphocytes % (A) 4 %; MCH 29.9 pg (25.0-35.0); MCHC 29.8 g/dL (31.0-37.0); MCV 100.2 fL (80.0-100.0); Macrocytosis Slight; Mean Platelet Volume 8.5; Monocytes # (A) 0.5 k/uL (0-1.0); Monocytes % (A) 4 %; Neutrophils # (A) 12.1 k/uL (1.3-7.7); Neutrophils % (A) 89 %; Platelet Count 370 k/uL (150-450); RBC 3.43 m/uL (4.30-5.90); RDW 16.5 % (11.5-15.5); WBC 13.5 k/uL (3.8-10.6)
[2020-08-16 04:49] LABS: Ionized Calcium 5.1 mg/dL (4.5-5.3)
[2020-08-16] MEDS: METOPROLOL TARTRATE 50 MG TAB PO SCH (04:57)
[2020-08-16 05:00] LABS: Calcium 9.6 mg/dL (8.4-10.2); Magnesium 2.3 mg/dL (1.6-2.3); Potassium 4.7 mmol/L (3.5-5.1)
[2020-08-16 05:06] LABS: Glucose,Whole Blood 129 mg/dL (75-99)
[2020-08-16 06:26] LABS: Glucose,Whole Blood 139 mg/dL (75-99)
[2020-08-16] MEDS: FORMOTEROL FUMARATE 20 MCG/2 ML NEBU INHALATION SCH ×2 (07:26→21:35)
[2020-08-16] MEDS: BUDESONIDE 1 MG/2 ML NEBU INHALATION SCH ×2 (07:26→21:35)
[2020-08-16] MEDS: IPRATROPIUM-ALBUTEROL 3 ML NEB INHALATION SCH ×4 (07:26→21:35)
[2020-08-16] MEDS: ACETYLCYSTEINE 800 MG/4 ML VIAL INHALATION SCH ×3 (07:26→21:34)
--- NOTE | 2020-08-16 07:32 | XR ---
EXAMINATION TYPE: XR chest 1V portable DATE OF EXAM: 08/16/2020 Comparison: 08/15/2020 Clinical History: 80-year-old male Postoperative CABG Findings: NG tube courses below the diaphragm. Median sternotomy wires of post calculus in the mediastinum. Rig ht PICC tip at the mid SVC level. Heart borderline in size. Relative upper lung lucencies and hyperin flation. Continued small pleural effusions with lower lung opacities. Impression: COPD with continued small pleural effusions and lower lung areas of patchy atelectasis and/or consoli dation.
[2020-08-16 07:48] LABS: Glucose,Whole Blood 131 mg/dL (75-99)
[2020-08-16] MEDS: PANTOPRAZOLE 40 MG/10 ML VIAL IVP SCH ×2 (08:37→21:27)
[2020-08-16] MEDS: LEVOTHYROXINE IVP 100 MCG/5 ML VIAL IV SCH (08:37)
[2020-08-16] MEDS: AMIODARONE 200 MG TAB PO SCH ×2 (08:39→21:27)
[2020-08-16] MEDS: ASPIRIN 81 MG PO SCH (08:39)
[2020-08-16] MEDS: ALVIMOPAN 12 MG CAPSULE PO SCH (08:39)
[2020-08-16] MEDS: ANIDULAFUNGIN 100 MG in SODIUM CHLORIDE 0.9% 100 ML IVPB SCH (08:39)
--- NOTE | 2020-08-16 08:44 | P.PN ---
Subjective Progress Note Date: 08/16/20 Principal diagnosis: Symptomatic triple-vessel coronary artery disease, mild left ventricular dysfunction. Previuos medical history of stenting to his right coronary artery in 2002, hypertension, hyperlipidemia, hypothyroid status post partial thyroidectomy, previous tobacco dependence quit smoking 20 years ago, moderate chronic obstructive pulmonary disease with preoperative FEV1 of 56% of predicted value, bullous emphysema, remote history of pneumonia, type 2 diabetes mellitus with a preoperative hemoglobin A1c of 5.2%, chronic kidney disease stage III with a baseline creatinine of 1.4-1.5, family history of premature coronary artery disease with brother having had CABG at less than 50 years old. POD #29 double coronary artery bypass grafting using the left internal mammary artery to left anterior descending coronary artery, reverse greater saphenous vein graft from the aorta to the posterior descending coronary artery. Exclusion of the left atrial appendage using a 35 mm Atriclip, endoscopic harvesting of the right greater saphenous vein from the groin to above the ankle level, graft flow measurement using the [employer] system, intraoperative transesophageal echocardiogram and epi-aortic scanning. Postoperative acute blood loss anemia, expected outcome from hemodilution and cardiopulmonary bypass. Postoperative paroxysmal atrial fibrillation, unexpected but common outcome after open heart surgery. Pneumoperitoneum, unexpected Acute on chronic kidney disease secondary to ATN Pneumatosis of the small bowel POD #23 ischemic bowel, small bowel resection Acute hypoxic respiratory failure with reintubation, prolonged mechanical ventilation, unexpected Acute abdomen, intraperitoneal hemorrhage POD #14 Exploratory laparotomy, washout of peritoneal cavity, ileostomy with small bowel resection The patient is currently sitting up in a recliner in the intensive care unit on 2LPM NC in no acute distress. Had left sided thoracentesis yesterday with removal of 1400 mL bloody drainage. Currently in sinus rhythm with rate in the 80s. NG tube in place, tube feeding continues with good tolerance. Abdomen is soft, remains on TPN, decreasing dose with increase in tube feeding. Remains on IV Eraxis, daptomyocin. Sputum culture from 08/03/20 demonstrating aurora albicans, blood culture negative, CVC catheter tip removed 08/03/[address] aph epidermis. Tmax 100.3F in the last 24 hours, white blood cell count 13.5. Patient continues to have liquid light brown stool through ileostomy, 1500mL in the last 12 hours. Wound vac in place to mid abdominal incision, changed M-W-F. Equal strength bilaterally but weak, was able to stand at the bedside with PT assistance. Remains calm and cooperative, no new complaints. Objective - Vital Signs Vital signs: Vital Signs Temp 96.8 F L 08/16/20 04:00 Pulse 98 08/16/20 07:52 Resp 18 08/16/20 07:00 BP 106/64 08/16/20 07:00 Pulse Ox 100 08/16/20 07:00 Intake & Output 08/15/20 08/16/20 08/16/20 18:59 06:59 18:59 Intake Total 2279.658 1459.284 39.4 Output Total 3710 2161 30 Balance -1430.342 -701.716 9.4 Weight 87.3 kg 87.7 kg Intake: IV 834 480 35 Anidulafungin 100 mg In 100 Sodium Chloride 0.9% 100 ml @ 84 mls/hr IVPB DAILY WADE Rx#:[id number] DAPTOmycin 650 mg In 50 Sodium Chloride 0.9% 50 ml @ 100 mls/hr IVPB Q48H WADE Rx#:[id number] Sodium Chloride 0.9% 1, 110 20 000 ml @ 10 mls/hr IV . Q24H WADE Rx#:[id number] TPN 550 460 35 pressure bag 24 Intake, IV Titration 1055.658 69.284 4.4 Amount Insulin Regular 100 unit 31.658 69.284 4.4 In Sodium Chloride 0.9% 100 ml @ Per Protocol IV .Q0M WADE Rx#:[id number] Sodium Acetate 20 meq 1024 Potassium Acetate 28 meq In Amino Acids 5 %/ Dextrose 20 % 1,000 ml @ 75 mls/hr IV .BY DURATION WADE Rx#:[id number] Tube Feeding 330 820 0 Other 60 90 Output: Urine 1760 611 30 Stool 450 1550 Urine/Stool Mix 100 Other 1400 Other: Voiding Method Indwelling Catheter Indwelling Catheter ABP, PAP, CO, CI - Last Documented Arterial Blood Pressure 131/50 Pulmonary Artery Pressure 33/14 Cardiac Output 6.7 Cardiac Index 3.1 - Constitutional General appearance: Present: cooperative, no acute distress - Respiratory Details: Lungs sounds diminished bilaterally with coarse breath sounds in the bases. Respirations even, non-labored. Currently on 2 LPM NC with oxygen saturation mid 90s. Strong loose productive cough. - Cardiovascular Details: S1, S2 present. Regular rate and rhythm, sinus rhythm on telemetry with rate in the 80s, patient goes back and forth between afib and NSR. Sternum stable. Palpable peripheral pulses bilaterally. Generalized trace upper extremity edema present, continues to be less everyday. Heart hugger, antiembolism stockings, SCDs present. Right brachial PICC line present. - Gastrointestinal Gastrointestinal Comment(s): Abdomen soft, nontender, nondistended. Active bowel sounds present. NG tube present, continues with tube feeding. Ileostomy present to RLQ, stoma pink and moist, positive light brown liquid stool, 1550 mL in the last 12 hours. - Genitourinary Genitourinary Comment(s): Villafana catheter present draining clear, yellow urine. Output 35-75 mL/h overnight, 1300 mL after IV lasix yesterday, 2371 mL in the last 24 hours - Integumentary Integumentary Comment(s): Skin is warm and dry. Anterior chest incision well approximated and covered with dry intact dressing. Right lower extremity EVH site well approximated. Mid abdominal incision open, wound vac in place. - Neurologic Neurologic: Present: CNII-XII intact - Musculoskeletal Musculoskeletal: Present: generalized weakness, strength equal bilaterally - Psychiatric Psychiatric: Present: A&O x's 3, appropriate affect - Allied health notes Allied health notes reviewed: nursing - Labs CBC & Chem 7: 08/16/20 04:14 08/16/20 04:14 Labs: Abnormal Lab Results - Last 24 Hours (Table) 08/15/20 08/15/20 08/15/20 Range/Units 08:14 08:56 10:20 WBC (3.8-10.6) k/uL RBC (4.30-5.90) m/uL Hgb (13.0-17.5) gm/dL Hct (39.0-53.0) % MCV (80.0-100.0) fL MCHC (31.0-37.0) g/dL RDW (11.5-15.5) % Neutrophils # (1.3-7.7) k/uL Lymphocytes # (1.0-4.8) k/uL Carbon Dioxide (22-30) mmol/L BUN (9-20) mg/dL Creatinine (0.66-1.25) mg/dL Glucose (74-99) mg/dL POC Glucose (mg/dL) 133 H 181 H 132 H (75-99) mg/dL C-Reactive Protein (<10.0) mg/L 08/15/20 08/15/20 08/15/20 Range/Units 11:28 12:14 13:06 WBC (3.8-10.6) k/uL RBC (4.30-5.90) m/uL Hgb (13.0-17.5) gm/dL Hct (39.0-53.0) % MCV (80.0-100.0) fL MCHC (31.0-37.0) g/dL RDW (11.5-15.5) % Neutrophils # (1.3-7.7) k/uL Lymphocytes # (1.0-4.8) k/uL Carbon Dioxide (22-30) mmol/L BUN (9-20) mg/dL Creatinine (0.66-1.25) mg/dL Glucose (74-99) mg/dL POC Glucose (mg/dL) 144 H 143 H 133 H (75-99) mg/dL C-Reactive Protein (<10.0) mg/L 08/15/20 08/15/20 08/15/20 Range/Units 15:21 17:01 18:00 WBC (3.8-10.6) k/uL RBC (4.30-5.90) m/uL Hgb (13.0-17.5) gm/dL Hct (39.0-53.0) % MCV (80.0-100.0) fL MCHC (31.0-37.0) g/dL RDW (11.5-15.5) % Neutrophils # (1.3-7.7) k/uL Lymphocytes # (1.0-4.8) k/uL Carbon Dioxide (22-30) mmol/L BUN (9-20) mg/dL Creatinine (0.66-1.25) mg/dL Glucose (74-99) mg/dL POC Glucose (mg/dL) 118 H 119 H 145 H (75-99) mg/dL C-Reactive Protein (<10.0) mg/L 08/15/20 08/15/20 08/15/20 Range/Units 18:55 20:52 21:04 WBC (3.8-10.6) k/uL RBC (4.30-5.90) m/uL Hgb (13.0-17.5) gm/dL Hct (39.0-53.0) % MCV (80.0-100.0) fL MCHC (31.0-37.0) g/dL RDW (11.5-15.5) % Neutrophils # (1.3-7.7) k/uL Lymphocytes # (1.0-4.8) k/uL Carbon Dioxide (22-30) mmol/L BUN (9-20) mg/dL Creatinine (0.66-1.25) mg/dL Glucose (74-99) mg/dL POC Glucose (mg/dL) 146 H 190 H 191 H (75-99) mg/dL C-Reactive Protein (<10.0) mg/L 08/15/20 08/15/20 08/15/20 Range/Units 22:04 22:54 23:57 WBC (3.8-10.6) k/uL RBC (4.30-5.90) m/uL Hgb (13.0-17.5) gm/dL Hct (39.0-53.0) % MCV (80.0-100.0) fL MCHC (31.0-37.0) g/dL RDW (11.5-15.5) % Neutrophils # (1.3-7.7) k/uL Lymphocytes # (1.0-4.8) k/uL Carbon Dioxide (22-30) mmol/L BUN (9-20) mg/dL Creatinine (0.66-1.25) mg/dL Glucose (74-99) mg/dL POC Glucose (mg/dL) 178 H 158 H 149 H (75-99) mg/dL C-Reactive Protein (<10.0) mg/L 08/16/20 08/16/20 08/16/20 Range/Units 00:55 02:23 03:09 WBC (3.8-10.6) k/uL RBC (4.30-5.90) m/uL Hgb (13.0-17.5) gm/dL Hct (39.0-53.0) % MCV (80.0-100.0) fL MCHC (31.0-37.0) g/dL RDW (11.5-15.5) % Neutrophils # (1.3-7.7) k/uL Lymphocytes # (1.0-4.8) k/uL Carbon Dioxide (22-30) mmol/L BUN (9-20) mg/dL Creatinine (0.66-1.25) mg/dL Glucose (74-99) mg/dL POC Glucose (mg/dL) 128 H 190 H 155 H (75-99) mg/dL C-Reactive Protein (<10.0) mg/L 08/16/20 08/16/20 08/16/20 Range/Units 04:14 04:14 04:14 WBC 13.5 H (3.8-10.6) k/uL RBC 3.43 L (4.30-5.90) m/uL Hgb 10.3 L (13.0-17.5) gm/dL Hct 34.4 L (39.0-53.0) % MCV 100.2 H (80.0-100.0) fL MCHC 29.8 L (31.0-37.0) g/dL RDW 16.5 H (11.5-15.5) % Neutrophils # 12.1 H (1.3-7.7) k/uL Lymphocytes # 0.6 L (1.0-4.8) k/uL Carbon Dioxide 34 H (22-30) mmol/L BUN 63 H (9-20) mg/dL Creatinine 1.55 H (0.66-1.25) mg/dL Glucose 168 H (74-99) mg/dL POC Glucose (mg/dL) 161 H (75-99) mg/dL C-Reactive Protein 161.0 H (<10.0) mg/L 08/16/20 08/16/20 08/16/20 Range/Units 05:04 06:25 07:46 WBC (3.8-10.6) k/uL RBC (4.30-5.90) m/uL Hgb (13.0-17.5) gm/dL Hct (39.0-53.0) % MCV (80.0-100.0) fL MCHC (31.0-37.0) g/dL RDW (11.5-15.5) % Neutrophils # (1.3-7.7) k/uL Lymphocytes # (1.0-4.8) k/uL Carbon Dioxide (22-30) mmol/L BUN (9-20) mg/dL Creatinine (0.66-1.25) mg/dL Glucose (74-99) mg/dL POC Glucose (mg/dL) 129 H 139 H 131 H (75-99) mg/dL C-Reactive Protein (<10.0) mg/L - Imaging and Cardiology Chest x-ray: report reviewed, image reviewed Assessment and Plan Assessment: 1. Symptomatic triple-vessel coronary artery disease, status post 2 vessel CABG 2. Mild left ventricular dysfunction 3. Previuos history of stenting to his right coronary artery in 2002 4. Hypertension 5. Hyperlipidemia 6. Hypothyroid status post partial thyroidectomy 7. Previous tobacco dependence with bullous emphysema 8. Moderate chronic obstructive pulmonary disease with preoperative FEV1 of 56% of predicted value 9. Remote history of pneumonia 10. Type 2 diabetes mellitus with a preoperative hemoglobin A1c of 5.2% 11. Chronic kidney disease stage III with a baseline creatinine of 1.4-1.5 12. Family history of premature coronary artery disease with brother having had CABG at less than 50 years old 13. Postoperative acute blood loss anemia, expected outcome 14. Postoperative paroxysmal atrial fibrillation, unexpected, status post exclusion of the left atrial appendage 15. Pneumoperitoneum, unexpected 16. Acute on chronic kidney disease with hyponatremia, hyperkalemia 17. Pneumatosis of the small bowel, status post small bowel resection 18. Sputum culture positive for pseudomonas fluorescens, second sputum positive for aurora 19. Acute hypoxic respiratory failure with reintubation, prolonged mechanical ventilation 20. Acute abdomen, intraperitoneal hemorrhage, S/P exploratory laparotomy, washout of peritoneal cavity, ileostomy with small bowel resection 21. Generalized debility secondary to above Plan: 1. Continue low dose aspirin, beta apolinar. Will increase beta apolinar as tolerated 2. Continue amiodarone for afib. No anticoagulation 3. Wean oxygen as tolerated. Bronchodilators, inhaled steroids per pulmonology management. Encourage incentive spirometry use 4. Will monitor daily labs and chest x-rays. 5. GI/DVT prophylaxis. 6. Pain control with current medication regimen. 7. Insulin management per primary care service 8. Continue tube feedings, transition to bolus feeds. Discontinue TPN 9. Nephrology following. Avoid nephrotoxic agents. No lasix today 10. Strict accurate intake and output, daily weight 11. Continue IV Eraxis day #12, daptomycin day#12 per infectious disease. 12. Wound vac to be changed 13. Recommend stopping Alvimopan, will discuss with general surgery 14. Increase activity as tolerated, continue with PT/OT. Out of bed to chair as much as tolerated. 15. DC planning continues, social work on board to assist. Anticipate DC to LTAC soon 16. More recommendations to follow based on patient's clinical course. Time with Patient: Greater than 30
[2020-08-16 09:05] LABS: Glucose,Whole Blood 119 mg/dL (75-99)
--- NOTE | 2020-08-16 10:11 | P.PN ---
Subjective Progress Note Date: 08/16/20 Principal diagnosis: Coronary artery disease, status post three-vessel bypass grafting 79-year-old white male patient with past medical history of hypertension, hyperlipidemia, moderate to severe COPD with the baseline FEV1 of 56% of predicted who came in on 07/18/2020 for elective two-vessel bypass grafting with PABLO to LAD, and SVG to the PDA. He was seen in the intensive care unit following surgery, patient was successfully weaned and extubated from mechanical ventilator and under 6 hours following his OR exit, is currently awake and alert, sitting in the chair, he is currently on 2 L of oxygen, his pulse ox is 98%, hemodynamically he stable, blood pressure is 106/51, PA pressures 35/11, CVP is 8, no fever or chills, IV fluids including the 0.9 normal saline at a r ate of 30 ML per hour, insulin is 4.5 units per hour, no vasoactive drips. Today's chest x-ray shows a pneumoperitoneum with lucency present underneath the right hemidiaphragm. He has left pleural and mediastinal chest tube, and there has been 500 mL of serosanguineous output from the left pleural and 350 mL from the mediastinal chest tube in the last 24 hours. Is having some mild discomfort under the right rib cage, but no acute distress, abdomen is distended but soft, he is hemodynamically stable, he is in sinus mechanism, no nausea vomiting or diarrhea. CT of the abdomen and pelvis is pending today's labs have been reviewed, showing white blood cell count of 11.9, hemoglobin of 9, sodium is 133, the rest of the electrolytes were within normal limits, B1 is 25 creatinine is 1.18 The patient is seen today 07/20/2020 in follow-up in the intensive care unit. He is currently sitting up in a chair at the bedside. Awake and alert in no acute distress. This is postoperative day #2, two-vessel coronary artery bypass surgery. He is currently on 2 L/m per nasal cannula maintaining good O2 saturation in the 90s. He did have issues with atrial fibrillation and is currently on Cardizem drip at 10 mg per hour. He did receive IV amiodarone, initiated on by mouth today. 0.9 normal saline at KVO. Chest x-ray reveals removal of mediastinal drains. Right-sided pneumoperitoneum is no longer appreciated. Left-sided chest tube remains in place. Bibasilar patchy atelectasis remains. White count 18.2. Hemoglobin 8.9. Platelet count 99,000. Sodium 127. Potassium 5.0. Creatinine 1.37. He is pulling approximately 1553-6930 ML's on the incentive spirometer. Continued on bronchodilators. Heparin for DVT prophylaxis. Patient is seen today 07/22/2020 in follow-up on the intensive care unit. He is currently sitting up in a chair at the bedside. He is having complaints of increasing shortness of breath. He is doing less on his incentive spirometer. Chest x-ray reveals small right pleural effusion with adjacent atelectasis and/or consolidation. He is currently maintaining O2 saturations in the low 90s on 3 L/m per nasal cannula. Respiratory rate 32. He is afebrile. Blood pressure stable. He did have issues with atrial fibrillation with rapid ventricular response last evening. He is on a Cardizem drip at 10 mg per hour. He will be transitioned to Eliquis. On oral amiodarone. 0.9 normal saline at 20 ML's per hour. Currently in sinus rhythm. White count 16.8. Hemoglobin 8.8. Sodium 124. Potassium 5.3. Bicarb 20. Creatinine 1.62. AST 147. ALT 130. He is still having issues with hypoactive bowel and not passing flatus or bowel movement since surgery. He remains on bronchodilators and IV Solu-Medrol. The patient is seen today 07/23/2020 in follow-up in the intensive care unit. Postoperative day #5. He is awake and alert in no acute distress. Currently sitting up in a chair at the bedside. He is feeling stronger today. Less short of breath. Maintaining O2 saturations in the 90s on 3 L/m per nasal cannula. Chest x-ray continues to show a small right pleural effusion with prominent right greater than left basilar atelectasis. He is doing better with his incentive spirometer. White count 15.2. Hemoglobin 81.1. Sodium 124. Potassium 5.3. Creatinine 1.84. AST 136. ALT 193. Albumin 3.4. No IV fluids currently. Is continued on bronchodilators, IV Solu-Medrol, anticoagulated with Eliquis. Still has not had a bowel movement. The patient is seen today 08/09/2020 in follow-up in the intensive care unit. He was extubated again yesterday 08/08/2020. He is currently on 2 L/m per nasal cannula. TPN at 75 ML's per hour. 0.9#10 ML's per hour. Amiodarone at 0.25 mg/m. Insulin drip at 7 units per hour. His x-ray reveals some evidence of fluid volume overload. He is also quite edematous. He'll receive Lasix 40 mg IVP 1 today. He'll also be placed on BiPAP 07/22 on 40% FiO2 as he remains slightly tachypneic and shallow breathing. He is quite weak and debilitated today. He remains on bronchodilators. Eraxis. Daptomycin. Being nourished with lipid and TPN. The patient is seen today 08/11/2020 in follow-up in the intensive care unit. He is currently resting fairly comfortably in bed. Maintaining O2 saturation in the 90s on 2 L/m per nasal cannula. He did wear BiPAP last night at 12/5 and 28% FiO2. He is being nourished with TPN at 75 ML's per hour. He is on insulin at 5.5 units per hour. He remains on amiodarone at 0.25 mg/m. White count 10.0. Hemoglobin 9.2. Sodium 145. Potassium 4.0. Creatinine 1.50. Glucose 120. Chest xray reveals persistent bilateral lung opacities and pleural effusions. No significant change. Remains on DuoNeb inhalations, daptomycin, meropenem. Remains slightly tachycardic. Temperature 99.2 axillary. Needs increased encouragement regarding the use of the incentive spirometer. The patient is seen today 08/12/2020 in follow-up in the intensive care unit. He is awake and alert in no acute distress. He is maintaining O2 saturation in the 90s on 2 L/m per nasal cannula. He has TPN at 75 ML's per hour. 0.9 normal sitting at 10 MLS per hour. Insulin drip at 4 units per hour. Chest x-ray showed a questionable left apical pneumothorax. Computed tomography scan of the chest revealed advanced upper lung emphysema but no convincing pneumothorax. There is moderate bilateral pleural effusions with atelectatic collapse of the entire bilateral lower lobes. Small pericardial effusion. He continues to breathe quite shallow with tachypnea. He remains quite weak and debilitated. Currently afebrile. Hemodynamically stable. White count 10.8. Hemoglobin 9.8. Sodium 143. Potassium 4.1. Creatinine 1.44. Glucose 152. AST 49. ALT 62. Albumin 2.5. He remains on daptomycin, Eraxis, bronchodilators. The patient is seen today 08/13/2020 in follow-up in the intensive care unit. He is currently resting fairly comfortably in bed. He remains awake. He is still very weak and debilitated. Physical therapy is working with the patient. He continues with rapid shallow breathing despite encouraging him to take slower deeper breaths. He is maintaining good O2 saturation in the 90s on 2 L/m per nasal cannula. He has TPN for nourishment at 75 ML's per hour. 0.9#10 mL per hour. Insulin drip at 7 units per hour. Chest x-ray continued showing evidence of COPD and continue small to moderate effusions with adjacent atelectasis/ consolidations. He continues to need increased encouragement to utilize the incentive spirometer and cough and deep breathing exercises. White count 11.7. Hemoglobin 10.0. Sodium 144. Potassium 4.2. Creatinine 1.47. Glucose 151. He remains on DuoNeb inhalations, Pulmicort inhalations. Antibiotics in the form of daptomycin. Eraxis. Heparin for DVT prophylaxis. The patient is seen today 08/16/2020 in follow-up in the intensive care unit. Postoperative day #29 of his coronary artery bypass grafting. He is awake and alert in no acute distress. He is currently sitting up in a chair at the bedside. Maintaining O2 saturations up to 99% on 5 L/m per nasal cannula. He remains tachypneic. He has a respiratory pattern of rapid shallow breathing. Chest x-ray reveals COPD with continued small pleural effusions and patchy atelectasis in the bases. He is status post left-sided thoracentesis with 1.4 L of turbid blood tinged fluid removed yesterday. He is status post 5 units of p acked red blood cells this admission. Current hemoglobin 10.3. Platelet count 370. White count 13.5. Sodium 142. Potassium 4.7. Creatinine 1.55. He remains on bronchodilators, Mucomyst, Pulmicort. Insulin drip at 3.5 units per hour. Being nourished with Glucerna. TPN's at 35 mL per hour. 0.9 normal saline at 10 MLS per hour. Objective - Vital Signs Vital signs: Vital Signs Temp 98.5 F 08/16/20 08:00 Pulse 93 08/16/20 09:00 Resp 40 H 08/16/20 09:00 BP 137/64 08/16/20 09:00 Pulse Ox 99 08/16/20 09:00 Intake & Output 08/15/20 08/16/20 08/16/20 18:59 06:59 18:59 Intake Total 2279.658 1459.284 274.008 Output Total 3710 2161 560 Balance -1430.342 -701.716 -285.992 Weight 87.3 kg 87.7 kg Intake: IV 834 480 225 Anidulafungin 100 mg In 100 100 Sodium Chloride 0.9% 100 ml @ 84 mls/hr IVPB DAILY [facility] Rx#:[id number] DAPTOmycin 650 mg In 50 Sodium Chloride 0.9% 50 ml @ 100 mls/hr IVPB Q48H [facility] Rx#:[id number] Sodium Chloride 0.9% 1, 110 20 20 000 ml @ 10 mls/hr IV . Q24H [facility] Rx#:[id number] TPN 550 460 105 pressure bag 24 Intake, IV Titration 1055.658 69.284 9.008 Amount Insulin Regular 100 unit 31.658 69.284 9.008 In Sodium Chloride 0.9% 100 ml @ Per Protocol IV .Q0M [facility] Rx#:[id number] Sodium Acetate 20 meq 1024 Potassium Acetate 28 meq In Amino Acids 5 %/ Dextrose 20 % 1,000 ml @ 75 mls/hr IV .BY DURATION [facility] Rx#:[id number] Tube Feeding 330 820 40 Other 60 90 Output: Gastric Drainage 450 Urine 1760 611 110 Stool 450 1550 Urine/Stool Mix 100 Other 1400 Other: Voiding Method Indwelling Catheter Indwelling Catheter ABP, PAP, CO, CI - Last Documented Arterial Blood Pressure 131/50 Pulmonary Artery Pressure 33/14 Cardiac Output 6.7 Cardiac Index 3.1 - Exam GENERAL EXAM: Alert, very pleasant, 79-year-old male patient, very weak and debilitated, on 5 L of oxygen, up in a chair at the bedside, fairly comfortable in no apparent distress. HEAD: Normocephalic/atraumatic. EYES: Normal reaction of pupils, equal size. Conjunctiva pink, sclera white. NOSE: Clear with pink turbinates. THROAT: No erythema or exudates. NECK: No masses, no JVD, no thyroid enlargement, no adenopathy. CHEST: No chest wall deformity. Symmetrical expansion. Midsternal incision is clean dry and intact LUNGS: Equal air entry with scattered crackles in the bases. CVS: Regular rate and rhythm, normal S1 and S2, no gallops, no murmurs, no rubs ABDOMEN: Incision clean dry well approximated. Wound VAC in place. Ileostomy the right side of the abdomen EXTREMITIES: No clubbing, no edema, no cyanosis, 2+ pulses and upper and lower extremities. MUSCULOSKELETAL: Muscle strength and tone normal. SPINE: No scoliosis or deformity SKIN: No rashes CENTRAL NERVOUS SYSTEM: No focal deficits, tone is normal in all 4 extremities. PSYCHIATRIC: Alert and oriented -3. Appropriate affect. Intact judgment and insight. - Labs CBC & Chem 7: 08/16/20 04:14 08/16/20 04:14 Labs: Abnormal Lab Results - Last 24 Hours (Table) 08/15/20 08/15/20 08/15/20 Range/Units 10:20 11:28 12:14 WBC (3.8-10.6) k/uL RBC (4.30-5.90) m/uL Hgb (13.0-17.5) gm/dL Hct (39.0-53.0) % MCV (80.0-100.0) fL MCHC (31.0-37.0) g/dL RDW (11.5-15.5) % Neutrophils # (1.3-7.7) k/uL Lymphocytes # (1.0-4.8) k/uL Carbon Dioxide (22-30) mmol/L BUN (9-20) mg/dL Creatinine (0.66-1.25) mg/dL Glucose (74-99) mg/dL POC Glucose (mg/dL) 132 H 144 H 143 H (75-99) mg/dL C-Reactive Protein (<10.0) mg/L 08/15/20 08/15/20 08/15/20 Range/Units 13:06 15:21 17:01 WBC (3.8-10.6) k/uL RBC (4.30-5.90) m/uL Hgb (13.0-17.5) gm/dL Hct (39.0-53.0) % MCV (80.0-100.0) fL MCHC (31.0-37.0) g/dL RDW (11.5-15.5) % Neutrophils # (1.3-7.7) k/uL Lymphocytes # (1.0-4.8) k/uL Carbon Dioxide (22-30) mmol/L BUN (9-20) mg/dL Creatinine (0.66-1.25) mg/dL Glucose (74-99) mg/dL POC Glucose (mg/dL) 133 H 118 H 119 H (75-99) mg/dL C-Reactive Protein (<10.0) mg/L 08/15/20 08/15/20 08/15/20 Range/Units 18:00 18:55 20:52 WBC (3.8-10.6) k/uL RBC (4.30-5.90) m/uL Hgb (13.0-17.5) gm/dL Hct (39.0-53.0) % MCV (80.0-100.0) fL MCHC (31.0-37.0) g/dL RDW (11.5-15.5) % Neutrophils # (1.3-7.7) k/uL Lymphocytes # (1.0-4.8) k/uL Carbon Dioxide (22-30) mmol/L BUN (9-20) mg/dL Creatinine (0.66-1.25) mg/dL Glucose (74-99) mg/dL POC Glucose (mg/dL) 145 H 146 H 190 H (75-99) mg/dL C-Reactive Protein (<10.0) mg/L 08/15/20 08/15/20 08/15/20 Range/Units 21:04 22:04 22:54 WBC (3.8-10.6) k/uL RBC (4.30-5.90) m/uL Hgb (13.0-17.5) gm/dL Hct (39.0-53.0) % MCV (80.0-100.0) fL MCHC (31.0-37.0) g/dL RDW (11.5-15.5) % Neutrophils # (1.3-7.7) k/uL Lymphocytes # (1.0-4.8) k/uL Carbon Dioxide (22-30) mmol/L BUN (9-20) mg/dL Creatinine (0.66-1.25) mg/dL Glucose (74-99) mg/dL POC Glucose (mg/dL) 191 H 178 H 158 H (75-99) mg/dL C-Reactive Protein (<10.0) mg/L 08/15/20 08/16/20 08/16/20 Range/Units 23:57 00:55 02:23 WBC (3.8-10.6) k/uL RBC (4.30-5.90) m/uL Hgb (13.0-17.5) gm/dL Hct (39.0-53.0) % MCV (80.0-100.0) fL MCHC (31.0-37.0) g/dL RDW (11.5-15.5) % Neutrophils # (1.3-7.7) k/uL Lymphocytes # (1.0-4.8) k/uL Carbon Dioxide (22-30) mmol/L BUN (9-20) mg/dL Creatinine (0.66-1.25) mg/dL Glucose (74-99) mg/dL POC Glucose (mg/dL) 149 H 128 H 190 H (75-99) mg/dL C-Reactive Protein (<10.0) mg/L 08/16/20 08/16/20 08/16/20 Range/Units 03:09 04:14 04:14 WBC 13.5 H (3.8-10.6) k/uL RBC 3.43 L (4.30-5.90) m/uL Hgb 10.3 L (13.0-17.5) gm/dL Hct 34.4 L (39.0-53.0) % MCV 100.2 H (80.0-100.0) fL MCHC 29.8 L (31.0-37.0) g/dL RDW 16.5 H (11.5-15.5) % Neutrophils # 12.1 H (1.3-7.7) k/uL Lymphocytes # 0.6 L (1.0-4.8) k/uL Carbon Dioxide 34 H (22-30) mmol/L BUN 63 H (9-20) mg/dL Creatinine 1.55 H (0.66-1.25) mg/dL Glucose 168 H (74-99) mg/dL POC Glucose (mg/dL) 155 H (75-99) mg/dL C-Reactive Protein 161.0 H (<10.0) mg/L 08/16/20 08/16/20 08/16/20 Range/Units 04:14 05:04 06:25 WBC (3.8-10.6) k/uL RBC (4.30-5.90) m/uL Hgb (13.0-17.5) gm/dL Hct (39.0-53.0) % MCV (80.0-100.0) fL MCHC (31.0-37.0) g/dL RDW (11.5-15.5) % Neutrophils # (1.3-7.7) k/uL Lymphocytes # (1.0-4.8) k/uL Carbon Dioxide (22-30) mmol/L BUN (9-20) mg/dL Creatinine (0.66-1.25) mg/dL Glucose (74-99) mg/dL POC Glucose (mg/dL) 161 H 129 H 139 H (75-99) mg/dL C-Reactive Protein (<10.0) mg/L 08/16/20 08/16/20 Range/Units 07:46 09:03 WBC (3.8-10.6) k/uL RBC (4.30-5.90) m/uL Hgb (13.0-17.5) gm/dL Hct (39.0-53.0) % MCV (80.0-100.0) fL MCHC (31.0-37.0) g/dL RDW (11.5-15.5) % Neutrophils # (1.3-7.7) k/uL Lymphocytes # (1.0-4.8) k/uL Carbon Dioxide (22-30) mmol/L BUN (9-20) mg/dL Creatinine (0.66-1.25) mg/dL Glucose (74-99) mg/dL POC Glucose (mg/dL) 131 H 119 H (75-99) mg/dL C-Reactive Protein (<10.0) mg/L Assessment and Plan Assessment: 1 Symptomatic coronary artery disease, status post two-vessel coronary artery bypass grafting with PABLO to the LAD, SVG to the PDA on 07/18/2020 2 Postoperative atrial fibrillation with rapid ventricular response 3 History of coronary artery disease with previous stent placement 4 Intraperitoneal hemorrhage status post exploratory laparotomy, washout of peritoneal cavity and ileostomy on 08/02/2020. 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 Meyers Chest x-ray and labs reviewed Status post thoracentesis of the left lung yesterday Needs increased encouragement regarding the use the incentive spirometer, cough and deep breathing exercises Continue the current treatment plan Increase his activity as tolerated with physical therapy We will continue to follow and make further recommendations based on his clinical status I, the cosigning physician, performed a history & physical examination of the patient. Lungs sounds with basilar crackles. Maintaining good O2 saturations in the 90s on 5 L/m per nasal cannula. I discussed the assessment and plan of care with my nurse practitioner, Olga Marin. I attest to the above note as dictated by her.
[2020-08-16 10:41] LABS: Glucose,Whole Blood 105 mg/dL (75-99)
[2020-08-16] MEDS ORDERED: DEXTROSE 5% IN WATER 1,000 ML IV ONE (10:44)
[2020-08-16 11:52] LABS: Glucose,Whole Blood 101 mg/dL (75-99)
--- NOTE | 2020-08-16 12:02 | P.PN ---
Subjective Progress Note Date: 08/16/20 Principal diagnosis: CABG Patient is sitting in the chair. He denied having any pain or shortness of breath but he is quite sleepy. She drifts back to sleep immediately after an swering simple questions. No overnight events. Objective - Vital Signs Vital signs: Vital Signs Temp 98.5 F 08/16/20 08:00 Pulse 92 08/16/20 11:21 Resp 34 H 08/16/20 11:00 BP 106/51 08/16/20 11:00 Pulse Ox 99 08/16/20 11:00 Intake & Output 08/15/20 08/16/20 08/16/20 18:59 06:59 18:59 Intake Total 2279.658 1459.284 504.666 Output Total 3710 2161 600 Balance -1430.342 -701.716 -95.334 Weight 87.3 kg 87.7 kg 87.7 kg Intake: IV 834 480 280 Anidulafungin 100 mg In 100 100 Sodium Chloride 0.9% 100 ml @ 84 mls/hr IVPB DAILY [facility] Rx#:[id number] DAPTOmycin 650 mg In 50 Sodium Chloride 0.9% 50 ml @ 100 mls/hr IVPB Q48H [facility] Rx#:[id number] Sodium Chloride 0.9% 1, 110 20 40 000 ml @ 10 mls/hr IV . Q24H [facility] Rx#:[id number] TPN 550 460 140 pressure bag 24 Intake, IV Titration 1055.658 69.284 34.666 Amount Dextrose 5% in Water 1, 20 000 ml @ 20 mls/hr IV . Q24H [facility] Rx#:[id number] Insulin Regular 100 unit 31.658 69.284 14.666 In Sodium Chloride 0.9% 100 ml @ Per Protocol IV .Q0M [facility] Rx#:[id number] Sodium Acetate 20 meq 1024 Potassium Acetate 28 meq In Amino Acids 5 %/ Dextrose 20 % 1,000 ml @ 75 mls/hr IV .BY DURATION [facility] Rx#:[id number] Tube Feeding 330 820 160 Other 60 90 30 Output: Gastric Drainage 450 Urine 1760 611 150 Stool 450 1550 Urine/Stool Mix 100 Other 1400 Other: Voiding Method Indwelling Catheter Indwelling Catheter ABP, PAP, CO, CI - Last Documented Arterial Blood Pressure 131/50 Pulmonary Artery Pressure 33/14 Cardiac Output 6.7 Cardiac Index 3.1 - Exam Gen: awake, alert HEENT: normocephalic, atraumatic, moist mucous membranes, + central line Resp: adequate lung expansion, symmetric breathing, no accessory muscle use CVS: good distal perfusion x 4, RRR, no murmurs, clicks, gallops GI: soft, NTTP, ND : no SPT, no CVAT, malagon catheter is present MSK: + pitting edema, no clubbing Neuro: non-focal, no sensory deficits, appropriate tone - Labs CBC & Chem 7: 08/16/20 04:14 08/16/20 04:14 Labs: Abnormal Lab Results - Last 24 Hours (Table) 08/15/20 08/15/20 08/15/20 Range/Units 12:14 13:06 15:21 WBC (3.8-10.6) k/uL RBC (4.30-5.90) m/uL Hgb (13.0-17.5) gm/dL Hct (39.0-53.0) % MCV (80.0-100.0) fL MCHC (31.0-37.0) g/dL RDW (11.5-15.5) % Neutrophils # (1.3-7.7) k/uL Lymphocytes # (1.0-4.8) k/uL Carbon Dioxide (22-30) mmol/L BUN (9-20) mg/dL Creatinine (0.66-1.25) mg/dL Glucose (74-99) mg/dL POC Glucose (mg/dL) 143 H 133 H 118 H (75-99) mg/dL C-Reactive Protein (<10.0) mg/L Procalcitonin (0.02-0.09) ng/mL 08/15/20 08/15/20 08/15/20 Range/Units 17:01 18:00 18:55 WBC (3.8-10.6) k/uL RBC (4.30-5.90) m/uL Hgb (13.0-17.5) gm/dL Hct (39.0-53.0) % MCV (80.0-100.0) fL MCHC (31.0-37.0) g/dL RDW (11.5-15.5) % Neutrophils # (1.3-7.7) k/uL Lymphocytes # (1.0-4.8) k/uL Carbon Dioxide (22-30) mmol/L BUN (9-20) mg/dL Creatinine (0.66-1.25) mg/dL Glucose (74-99) mg/dL POC Glucose (mg/dL) 119 H 145 H 146 H (75-99) mg/dL C-Reactive Protein (<10.0) mg/L Procalcitonin (0.02-0.09) ng/mL 08/15/20 08/15/20 08/15/20 Range/Units 20:52 21:04 22:04 WBC (3.8-10.6) k/uL RBC (4.30-5.90) m/uL Hgb (13.0-17.5) gm/dL Hct (39.0-53.0) % MCV (80.0-100.0) fL MCHC (31.0-37.0) g/dL RDW (11.5-15.5) % Neutrophils # (1.3-7.7) k/uL Lymphocytes # (1.0-4.8) k/uL Carbon Dioxide (22-30) mmol/L BUN (9-20) mg/dL Creatinine (0.66-1.25) mg/dL Glucose (74-99) mg/dL POC Glucose (mg/dL) 190 H 191 H 178 H (75-99) mg/dL C-Reactive Protein (<10.0) mg/L Procalcitonin (0.02-0.09) ng/mL 08/15/20 08/15/20 08/16/20 Range/Units 22:54 23:57 00:55 WBC (3.8-10.6) k/uL RBC (4.30-5.90) m/uL Hgb (13.0-17.5) gm/dL Hct (39.0-53.0) % MCV (80.0-100.0) fL MCHC (31.0-37.0) g/dL RDW (11.5-15.5) % Neutrophils # (1.3-7.7) k/uL Lymphocytes # (1.0-4.8) k/uL Carbon Dioxide (22-30) mmol/L BUN (9-20) mg/dL Creatinine (0.66-1.25) mg/dL Glucose (74-99) mg/dL POC Glucose (mg/dL) 158 H 149 H 128 H (75-99) mg/dL C-Reactive Protein (<10.0) mg/L Procalcitonin (0.02-0.09) ng/mL 08/16/20 08/16/20 08/16/20 Range/Units 02:23 03:09 04:14 WBC (3.8-10.6) k/uL RBC (4.30-5.90) m/uL Hgb (13.0-17.5) gm/dL Hct (39.0-53.0) % MCV (80.0-100.0) fL MCHC (31.0-37.0) g/dL RDW (11.5-15.5) % Neutrophils # (1.3-7.7) k/uL Lymphocytes # (1.0-4.8) k/uL Carbon Dioxide 34 H (22-30) mmol/L BUN 63 H (9-20) mg/dL Creatinine 1.55 H (0.66-1.25) mg/dL Glucose 168 H (74-99) mg/dL POC Glucose (mg/dL) 190 H 155 H (75-99) mg/dL C-Reactive Protein 161.0 H (<10.0) mg/L Procalcitonin (0.02-0.09) ng/mL 08/16/20 08/16/20 08/16/20 Range/Units 04:14 04:14 04:14 WBC 13.5 H (3.8-10.6) k/uL RBC 3.43 L (4.30-5.90) m/uL Hgb 10.3 L (13.0-17.5) gm/dL Hct 34.4 L (39.0-53.0) % MCV 100.2 H (80.0-100.0) fL MCHC 29.8 L (31.0-37.0) g/dL RDW 16.5 H (11.5-15.5) % Neutrophils # 12.1 H (1.3-7.7) k/uL Lymphocytes # 0.6 L (1.0-4.8) k/uL Carbon Dioxide (22-30) mmol/L BUN (9-20) mg/dL Creatinine (0.66-1.25) mg/dL Glucose (74-99) mg/dL POC Glucose (mg/dL) 161 H (75-99) mg/dL C-Reactive Protein (<10.0) mg/L Procalcitonin 1.12 H (0.02-0.09) ng/mL 08/16/20 08/16/20 08/16/20 Range/Units 05:04 06:25 07:46 WBC (3.8-10.6) k/uL RBC (4.30-5.90) m/uL Hgb (13.0-17.5) gm/dL Hct (39.0-53.0) % MCV (80.0-100.0) fL MCHC (31.0-37.0) g/dL RDW (11.5-15.5) % Neutrophils # (1.3-7.7) k/uL Lymphocytes # (1.0-4.8) k/uL Carbon Dioxide (22-30) mmol/L BUN (9-20) mg/dL Creatinine (0.66-1.25) mg/dL Glucose (74-99) mg/dL POC Glucose (mg/dL) 129 H 139 H 131 H (75-99) mg/dL C-Reactive Protein (<10.0) mg/L Procalcitonin (0.02-0.09) ng/mL 08/16/20 08/16/20 Range/Units 09:03 10:40 WBC (3.8-10.6) k/uL RBC (4.30-5.90) m/uL Hgb (13.0-17.5) gm/dL Hct (39.0-53.0) % MCV (80.0-100.0) fL MCHC (31.0-37.0) g/dL RDW (11.5-15.5) % Neutrophils # (1.3-7.7) k/uL Lymphocytes # (1.0-4.8) k/uL Carbon Dioxide (22-30) mmol/L BUN (9-20) mg/dL Creatinine (0.66-1.25) mg/dL Glucose (74-99) mg/dL POC Glucose (mg/dL) 119 H 105 H (75-99) mg/dL C-Reactive Protein (<10.0) mg/L Procalcitonin (0.02-0.09) ng/mL Assessment and Plan Plan: 1. CAD s/p CABG with 2v bypass, PABLO to LAD, and SVG to posterior descending coronary artery 2. Paroxysmal Atrial Fibrillation, with RVR 3. 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 Pneumatosis, Ischemic Bowel, s/p small bowel resection 5. Acute Blood Loss Anemia, post-operative, resolved 6. Pneumoperitoneum secondary to chest tubes, resolving 7. CONNOR superimposed on CKD, stage III, worsening 8. Hypertension, essential 9. Hyperlipidemia 10. Type II DM, uncontrolled 11. Hypothyroidism 12. Obesity, BMI 30.5 13. Hyponatremia and Hyperkalemia DM 2 - hold metformin - currently on insulin gtt - Blood sugars currently controlled, follow blood sugars closely - A1C from 06/21/2020 5.2, anticipate discharge home back on metformin which may be able to come off in the near future in the outpatient setting. Small Bowel Ischemia - surgery consult - POD #23 s/p resection/anastamosis, POD #14 anastamosis take down and diverting ileostomy - on daptomycin/eraxis with recovering WBC count - MRSA nares negative - on Alvimopan, consider off-titrating and switching to reglan if needed. A-fib with RVR On metoprolol 50mg BID On amiodarone 200mg BID Off cardizem gtt Eliquis held due to bleeding, now on heparin q8h for DVT PPx; can consider restarting eliquis now that hgb has been stable CONNOR on CKD stage III, resolved Baseline cr 1.4-1.5, currently cr close to baseline Likely cardiorenal syndrome, patient received contrast earlier in the admission. Try to avoid IV fluids Recheck in am Avoid nephrotoxic meds Nephrology is following Acute hyponatremia Likely sec to renal failure Resolved Pneumoperitoneum suspect secondary to mediastinal chest tubes -Tube d/melody -Resolved. Constipation On Senokot, MiraLAX Had a bowel movement today Acute blood loss anemia and thrombocytopenia, anticipated outcome of surgery - follow CBC - transfuse as indicated COPD with acute exacerbation, resolved - steroid course completed - Sonia - on spiriva and advair at home Coronary artery disease -Status post coronary artery bypass grafting -Cardiothoracic and cardiology following HTN - meds per CT surgery - follow BP Hypothyroidism status post partial thyroidectomy - synthroid Morbid obesity with BMI 30.5 -Outpatient structured weight loss Chronic: ADDY Jacobs's Thank you for allowing us to participate in the care of this pleasant patient. Do not hesitate to contact us with questions. Someone can be reached from the [facility] hospitalist group all hours of the day at [phone] or via [employer].
[2020-08-16 13:01] LABS: Glucose,Whole Blood 134 mg/dL (75-99)
--- NOTE | 2020-08-16 13:03 | PN ---
PROGRESS NOTE Patient is seen for followup for acute kidney injury and chronic kidney disease. He is currently lying in bed, does not appear to be short of breath. The patient had 1400 mL of fluid removed on left-side thoracentesis yesterday. PHYSICAL EXAMINATION: On examination today, he is comfortable. Blood pressure is 106/51, heart rate 89 per minute. Patient is lethargic. He is afebrile. EXAMINATION OF THE HEART: S1, S2. EXAMINATION OF THE LUNGS: Decreased breath sounds at bases. Abdomen is soft. Ileostomy intact. Examination of lower extremities shows no significant edema. Chronic skin changes noted. LABS: Labs show hemoglobin 10.3, sodium 142, potassium 4.7, chloride 104, BUN 63, serum creatinine 1.5. ASSESSMENT: 1. Acute kidney injury, acute tubular necrosis, currently stable, nonoliguric with stable creatinine at about 1.4-1.5 mg/dL. 2. Status post coronary artery bypass surgery, day #29. 3. Bowel obstruction and bowel ischemia, status post bowel resection and ileostomy, tolerating tube feeds. 4. Chronic kidney disease stage 3. Baseline creatinine 1.2-1.5 mg/dL. Previous UA from June was benign. 5. Atrial fibrillation with rapid ventricular response, currently with improved heart rate. PLAN: Continue to hold off on diuretics for now. Encourage increased oral intake. MMODL / IJN: [id number] /
[2020-08-16] MEDS ORDERED: METOPROLOL TARTRATE 5 MG/5 ML VIAL IVP STA (13:14)
[2020-08-16 14:12] LABS: Glucose,Whole Blood 116 mg/dL (75-99)
[2020-08-16 15:20] LABS: Glucose,Whole Blood 121 mg/dL (75-99)
--- NOTE | 2020-08-16 15:48 | P.PN ---
Subjective Progress Note Date: 08/16/20 Principal diagnosis: Coronary artery disease and status post CABG This is a 80-year-old gentleman with coronary artery disease and status post CABG as well as persistent atrial fibrillation. The patient was seen today 08/16/2020. He remains stable. The heart rate is slightly on the higher side but the pressure has been marginal. He is on maximize medical treatment except for anticoagulation. At this point we'll continue the current medical regimen and follow-up with the patient. Objective - Vital Signs Vital signs: Vital Signs Temp 98.4 F 08/16/20 12:00 Pulse 95 08/16/20 15:16 Resp 24 08/16/20 15:16 BP 92/57 08/16/20 15:00 Pulse Ox 98 08/16/20 15:00 Intake & Output 08/15/20 08/16/20 08/16/20 18:59 06:59 18:59 Intake Total 2279.658 1459.284 798.516 Output Total 3710 2161 960 Balance -1430.342 -701.716 -161.484 Weight 87.3 kg 87.7 kg 87.7 kg Intake: IV 834 480 320 Anidulafungin 100 mg In 100 100 Sodium Chloride 0.9% 100 ml @ 84 mls/hr IVPB DAILY [facility] Rx#:[id number] DAPTOmycin 650 mg In 50 Sodium Chloride 0.9% 50 ml @ 100 mls/hr IVPB Q48H [facility] Rx#:[id number] Sodium Chloride 0.9% 1, 110 20 80 000 ml @ 10 mls/hr IV . Q24H [facility] Rx#:[id number] TPN 550 460 140 pressure bag 24 Intake, IV Titration 1055.658 69.284 148.516 Amount DAPTOmycin 650 mg In 50 Sodium Chloride 0.9% 50 ml @ 100 mls/hr IVPB Q24H [facility] Rx#:[id number] Dextrose 5% in Water 1, 80 000 ml @ 20 mls/hr IV . Q24H [facility] Rx#:[id number] Insulin Regular 100 unit 31.658 69.284 18.516 In Sodium Chloride 0.9% 100 ml @ Per Protocol IV .Q0M [facility] Rx#:[id number] Sodium Acetate 20 meq 1024 Potassium Acetate 28 meq In Amino Acids 5 %/ Dextrose 20 % 1,000 ml @ 75 mls/hr IV .BY DURATION [facility] Rx#:[id number] Tube Feeding 330 820 280 Other 60 90 50 Output: Gastric Drainage 650 Urine 1760 611 310 Stool 450 1550 Urine/Stool Mix 100 Other 1400 Other: Voiding Method Indwelling Catheter Indwelling Catheter Indwelling Catheter ABP, PAP, CO, CI - Last Documented Arterial Blood Pressure 131/50 Pulmonary Artery Pressure 33/14 Cardiac Output 6.7 Cardiac Index 3.1 - Constitutional General appearance: Present: no acute distress - Respiratory Respiratory: bilateral: diminished - Cardiovascular Rhythm: regular Heart sounds: normal: S1, S2 - Labs CBC & Chem 7: 08/16/20 04:14 08/16/20 04:14 Labs: Abnormal Lab Results - Last 24 Hours (Table) 08/15/20 08/15/20 08/15/20 Range/Units 17:01 18:00 18:55 WBC (3.8-10.6) k/uL RBC (4.30-5.90) m/uL Hgb (13.0-17.5) gm/dL Hct (39.0-53.0) % MCV (80.0-100.0) fL MCHC (31.0-37.0) g/dL RDW (11.5-15.5) % Neutrophils # (1.3-7.7) k/uL Lymphocytes # (1.0-4.8) k/uL Carbon Dioxide (22-30) mmol/L BUN (9-20) mg/dL Creatinine (0.66-1.25) mg/dL Glucose (74-99) mg/dL POC Glucose (mg/dL) 119 H 145 H 146 H (75-99) mg/dL C-Reactive Protein (<10.0) mg/L Procalcitonin (0.02-0.09) ng/mL 08/15/20 08/15/20 08/15/20 Range/Units 20:52 21:04 22:04 WBC (3.8-10.6) k/uL RBC (4.30-5.90) m/uL Hgb (13.0-17.5) gm/dL Hct (39.0-53.0) % MCV (80.0-100.0) fL MCHC (31.0-37.0) g/dL RDW (11.5-15.5) % Neutrophils # (1.3-7.7) k/uL Lymphocytes # (1.0-4.8) k/uL Carbon Dioxide (22-30) mmol/L BUN (9-20) mg/dL Creatinine (0.66-1.25) mg/dL Glucose (74-99) mg/dL POC Glucose (mg/dL) 190 H 191 H 178 H (75-99) mg/dL C-Reactive Protein (<10.0) mg/L Procalcitonin (0.02-0.09) ng/mL 08/15/20 08/15/20 08/16/20 Range/Units 22:54 23:57 00:55 WBC (3.8-10.6) k/uL RBC (4.30-5.90) m/uL Hgb (13.0-17.5) gm/dL Hct (39.0-53.0) % MCV (80.0-100.0) fL MCHC (31.0-37.0) g/dL RDW (11.5-15.5) % Neutrophils # (1.3-7.7) k/uL Lymphocytes # (1.0-4.8) k/uL Carbon Dioxide (22-30) mmol/L BUN (9-20) mg/dL Creatinine (0.66-1.25) mg/dL Glucose (74-99) mg/dL POC Glucose (mg/dL) 158 H 149 H 128 H (75-99) mg/dL C-Reactive Protein (<10.0) mg/L Procalcitonin (0.02-0.09) ng/mL 08/16/20 08/16/20 08/16/20 Range/Units 02:23 03:09 04:14 WBC (3.8-10.6) k/uL RBC (4.30-5.90) m/uL Hgb (13.0-17.5) gm/dL Hct (39.0-53.0) % MCV (80.0-100.0) fL MCHC (31.0-37.0) g/dL RDW (11.5-15.5) % Neutrophils # (1.3-7.7) k/uL Lymphocytes # (1.0-4.8) k/uL Carbon Dioxide 34 H (22-30) mmol/L BUN 63 H (9-20) mg/dL Creatinine 1.55 H (0.66-1.25) mg/dL Glucose 168 H (74-99) mg/dL POC Glucose (mg/dL) 190 H 155 H (75-99) mg/dL C-Reactive Protein 161.0 H (<10.0) mg/L Procalcitonin (0.02-0.09) ng/mL 08/16/20 08/16/20 08/16/20 Range/Units 04:14 04:14 04:14 WBC 13.5 H (3.8-10.6) k/uL RBC 3.43 L (4.30-5.90) m/uL Hgb 10.3 L (13.0-17.5) gm/dL Hct 34.4 L (39.0-53.0) % MCV 100.2 H (80.0-100.0) fL MCHC 29.8 L (31.0-37.0) g/dL RDW 16.5 H (11.5-15.5) % Neutrophils # 12.1 H (1.3-7.7) k/uL Lymphocytes # 0.6 L (1.0-4.8) k/uL Carbon Dioxide (22-30) mmol/L BUN (9-20) mg/dL Creatinine (0.66-1.25) mg/dL Glucose (74-99) mg/dL POC Glucose (mg/dL) 161 H (75-99) mg/dL C-Reactive Protein (<10.0) mg/L Procalcitonin 1.12 H (0.02-0.09) ng/mL 08/16/20 08/16/20 08/16/20 Range/Units 05:04 06:25 07:46 WBC (3.8-10.6) k/uL RBC (4.30-5.90) m/uL Hgb (13.0-17.5) gm/dL Hct (39.0-53.0) % MCV (80.0-100.0) fL MCHC (31.0-37.0) g/dL RDW (11.5-15.5) % Neutrophils # (1.3-7.7) k/uL Lymphocytes # (1.0-4.8) k/uL Carbon Dioxide (22-30) mmol/L BUN (9-20) mg/dL Creatinine (0.66-1.25) mg/dL Glucose (74-99) mg/dL POC Glucose (mg/dL) 129 H 139 H 131 H (75-99) mg/dL C-Reactive Protein (<10.0) mg/L Procalcitonin (0.02-0.09) ng/mL 08/16/20 08/16/20 08/16/20 Range/Units 09:03 10:40 11:51 WBC (3.8-10.6) k/uL RBC (4.30-5.90) m/uL Hgb (13.0-17.5) gm/dL Hct (39.0-53.0) % MCV (80.0-100.0) fL MCHC (31.0-37.0) g/dL RDW (11.5-15.5) % Neutrophils # (1.3-7.7) k/uL Lymphocytes # (1.0-4.8) k/uL Carbon Dioxide (22-30) mmol/L BUN (9-20) mg/dL Creatinine (0.66-1.25) mg/dL Glucose (74-99) mg/dL POC Glucose (mg/dL) 119 H 105 H 101 H (75-99) mg/dL C-Reactive Protein (<10.0) mg/L Procalcitonin (0.02-0.09) ng/mL 08/16/20 08/16/20 08/16/20 Range/Units 13:00 14:08 15:19 WBC (3.8-10.6) k/uL RBC (4.30-5.90) m/uL Hgb (13.0-17.5) gm/dL Hct (39.0-53.0) % MCV (80.0-100.0) fL MCHC (31.0-37.0) g/dL RDW (11.5-15.5) % Neutrophils # (1.3-7.7) k/uL Lymphocytes # (1.0-4.8) k/uL Carbon Dioxide (22-30) mmol/L BUN (9-20) mg/dL Creatinine (0.66-1.25) mg/dL Glucose (74-99) mg/dL POC Glucose (mg/dL) 134 H 116 H 121 H (75-99) mg/dL C-Reactive Protein (<10.0) mg/L Procalcitonin (0.02-0.09) ng/mL Assessment and Plan Assessment: Assessment #1 coronary artery disease and status post CABG #2 permanent atrial fibrillation was controlled heart rate #3 multiple comorbid conditions Plan #1 continue the current medical regimen #2 follow-up with the patient
[2020-08-16] MEDS ORDERED: METOPROLOL TARTRATE 25 MG TAB PO STA (16:10)
[2020-08-16 16:38] LABS: Glucose,Whole Blood 118 mg/dL (75-99)
[2020-08-16] MEDS ORDERED: MVI, ADULT NO.4 WITH VIT K 10 ML, TRACE (CONC-1ML/DOSE) 1 ML, SODIUM ACETATE 20 MEQ, PO... IV ONE ×5 (18:00)
[2020-08-16 18:02] LABS: Glucose,Whole Blood 114 mg/dL (75-99)
[2020-08-16 19:00] LABS: Glucose,Whole Blood 115 mg/dL (75-99)
--- NOTE | 2020-08-16 19:47 | P.PN ---
Subjective Progress Note Date: 08/16/20 Principal diagnosis: Ischemic bowel Patient is awake. Denies pain. Nasogastric tube in place. Receiving bolus feeds. Ostomy is functioning. Wound VAC was changed earlier today. Objective - Vital Signs Vital signs: Vital Signs Temp 99.2 F 08/16/20 16:00 Pulse 82 08/16/20 19:00 Resp 38 H 08/16/20 19:00 BP 117/60 08/16/20 19:00 Pulse Ox 94 L 08/16/20 19:00 Intake & Output 08/16/20 08/16/20 08/17/20 06:59 18:59 06:59 Intake Total 1459.284 980.316 10 Output Total 2161 1300 50 Balance -701.716 -319.684 -40 Weight 87.7 kg 87.7 kg Intake: IV 480 340 10 Anidulafungin 100 mg In 100 Sodium Chloride 0.9% 100 ml @ 84 mls/hr IVPB DAILY [facility] Rx#:[id number] Sodium Chloride 0.9% 1, 20 100 10 000 ml @ 10 mls/hr IV . Q24H [facility] Rx#:[id number] TPN 460 140 Intake, IV Titration 69.284 160.316 Amount DAPTOmycin 650 mg In 50 Sodium Chloride 0.9% 50 ml @ 100 mls/hr IVPB Q24H [facility] Rx#:[id number] Dextrose 5% in Water 1, 80 000 ml @ 20 mls/hr IV . Q24H [facility] Rx#:[id number] Insulin Regular 100 unit 69.284 30.316 In Sodium Chloride 0.9% 100 ml @ Per Protocol IV .Q0M [facility] Rx#:[id number] Tube Feeding 820 400 Other 90 80 Output: Gastric Drainage 850 Urine 611 450 50 Stool 1550 Other: Voiding Method Indwelling Catheter Indwelling Catheter ABP, PAP, CO, CI - Last Documented Arterial Blood Pressure 131/50 Pulmonary Artery Pressure 33/14 Cardiac Output 6.7 Cardiac Index 3.1 - Exam Abdomen: Soft, nondistended, wound VAC in place, ostomy with cook-colored stool - Labs CBC & Chem 7: 08/16/20 04:14 08/16/20 04:14 Labs: Abnormal Lab Results - Last 24 Hours (Table) 08/15/20 08/15/20 08/15/20 Range/Units 20:52 21:04 22:04 WBC (3.8-10.6) k/uL RBC (4.30-5.90) m/uL Hgb (13.0-17.5) gm/dL Hct (39.0-53.0) % MCV (80.0-100.0) fL MCHC (31.0-37.0) g/dL RDW (11.5-15.5) % Neutrophils # (1.3-7.7) k/uL Lymphocytes # (1.0-4.8) k/uL Carbon Dioxide (22-30) mmol/L BUN (9-20) mg/dL Creatinine (0.66-1.25) mg/dL Glucose (74-99) mg/dL POC Glucose (mg/dL) 190 H 191 H 178 H (75-99) mg/dL C-Reactive Protein (<10.0) mg/L Procalcitonin (0.02-0.09) ng/mL 08/15/20 08/15/20 08/16/20 Range/Units 22:54 23:57 00:55 WBC (3.8-10.6) k/uL RBC (4.30-5.90) m/uL Hgb (13.0-17.5) gm/dL Hct (39.0-53.0) % MCV (80.0-100.0) fL MCHC (31.0-37.0) g/dL RDW (11.5-15.5) % Neutrophils # (1.3-7.7) k/uL Lymphocytes # (1.0-4.8) k/uL Carbon Dioxide (22-30) mmol/L BUN (9-20) mg/dL Creatinine (0.66-1.25) mg/dL Glucose (74-99) mg/dL POC Glucose (mg/dL) 158 H 149 H 128 H (75-99) mg/dL C-Reactive Protein (<10.0) mg/L Procalcitonin (0.02-0.09) ng/mL 08/16/20 08/16/20 08/16/20 Range/Units 02:23 03:09 04:14 WBC (3.8-10.6) k/uL RBC (4.30-5.90) m/uL Hgb (13.0-17.5) gm/dL Hct (39.0-53.0) % MCV (80.0-100.0) fL MCHC (31.0-37.0) g/dL RDW (11.5-15.5) % Neutrophils # (1.3-7.7) k/uL Lymphocytes # (1.0-4.8) k/uL Carbon Dioxide 34 H (22-30) mmol/L BUN 63 H (9-20) mg/dL Creatinine 1.55 H (0.66-1.25) mg/dL Glucose 168 H (74-99) mg/dL POC Glucose (mg/dL) 190 H 155 H (75-99) mg/dL C-Reactive Protein 161.0 H (<10.0) mg/L Procalcitonin (0.02-0.09) ng/mL 08/16/20 08/16/20 08/16/20 Range/Units 04:14 04:14 04:14 WBC 13.5 H (3.8-10.6) k/uL RBC 3.43 L (4.30-5.90) m/uL Hgb 10.3 L (13.0-17.5) gm/dL Hct 34.4 L (39.0-53.0) % MCV 100.2 H (80.0-100.0) fL MCHC 29.8 L (31.0-37.0) g/dL RDW 16.5 H (11.5-15.5) % Neutrophils # 12.1 H (1.3-7.7) k/uL Lymphocytes # 0.6 L (1.0-4.8) k/uL Carbon Dioxide (22-30) mmol/L BUN (9-20) mg/dL Creatinine (0.66-1.25) mg/dL Glucose (74-99) mg/dL POC Glucose (mg/dL) 161 H (75-99) mg/dL C-Reactive Protein (<10.0) mg/L Procalcitonin 1.12 H (0.02-0.09) ng/mL 08/16/20 08/16/20 08/16/20 Range/Units 05:04 06:25 07:46 WBC (3.8-10.6) k/uL RBC (4.30-5.90) m/uL Hgb (13.0-17.5) gm/dL Hct (39.0-53.0) % MCV (80.0-100.0) fL MCHC (31.0-37.0) g/dL RDW (11.5-15.5) % Neutrophils # (1.3-7.7) k/uL Lymphocytes # (1.0-4.8) k/uL Carbon Dioxide (22-30) mmol/L BUN (9-20) mg/dL Creatinine (0.66-1.25) mg/dL Glucose (74-99) mg/dL POC Glucose (mg/dL) 129 H 139 H 131 H (75-99) mg/dL C-Reactive Protein (<10.0) mg/L Procalcitonin (0.02-0.09) ng/mL 08/16/20 08/16/20 08/16/20 Range/Units 09:03 10:40 11:51 WBC (3.8-10.6) k/uL RBC (4.30-5.90) m/uL Hgb (13.0-17.5) gm/dL Hct (39.0-53.0) % MCV (80.0-100.0) fL MCHC (31.0-37.0) g/dL RDW (11.5-15.5) % Neutrophils # (1.3-7.7) k/uL Lymphocytes # (1.0-4.8) k/uL Carbon Dioxide (22-30) mmol/L BUN (9-20) mg/dL Creatinine (0.66-1.25) mg/dL Glucose (74-99) mg/dL POC Glucose (mg/dL) 119 H 105 H 101 H (75-99) mg/dL C-Reactive Protein (<10.0) mg/L Procalcitonin (0.02-0.09) ng/mL 08/16/20 08/16/20 08/16/20 Range/Units 13:00 14:08 15:19 WBC (3.8-10.6) k/uL RBC (4.30-5.90) m/uL Hgb (13.0-17.5) gm/dL Hct (39.0-53.0) % MCV (80.0-100.0) fL MCHC (31.0-37.0) g/dL RDW (11.5-15.5) % Neutrophils # (1.3-7.7) k/uL Lymphocytes # (1.0-4.8) k/uL Carbon Dioxide (22-30) mmol/L BUN (9-20) mg/dL Creatinine (0.66-1.25) mg/dL Glucose (74-99) mg/dL POC Glucose (mg/dL) 134 H 116 H 121 H (75-99) mg/dL C-Reactive Protein (<10.0) mg/L Procalcitonin (0.02-0.09) ng/mL 08/16/20 08/16/20 08/16/20 Range/Units 16:25 18:01 18:59 WBC (3.8-10.6) k/uL RBC (4.30-5.90) m/uL Hgb (13.0-17.5) gm/dL Hct (39.0-53.0) % MCV (80.0-100.0) fL MCHC (31.0-37.0) g/dL RDW (11.5-15.5) % Neutrophils # (1.3-7.7) k/uL Lymphocytes # (1.0-4.8) k/uL Carbon Dioxide (22-30) mmol/L BUN (9-20) mg/dL Creatinine (0.66-1.25) mg/dL Glucose (74-99) mg/dL POC Glucose (mg/dL) 118 H 114 H 115 H (75-99) mg/dL C-Reactive Protein (<10.0) mg/L Procalcitonin (0.02-0.09) ng/mL Assessment and Plan (1) Ischemic colitis, enteritis, or enterocolitis Narrative/Plan: Patient clinically stable. Continue tube feeds through nasogastric tube for now. Likely will require EGD with PEG tube placement next week. Continue local wound care. We'll follow. Current Visit: Yes Status: Acute Code(s): K55.9 - VASCULAR DISORDER OF INTESTINE, UNSPECIFIED SNOMED Code(s): 84205169
[2020-08-16 20:27] LABS: Glucose,Whole Blood 135 mg/dL (75-99)
[2020-08-16 21:11] LABS: Glucose,Whole Blood 130 mg/dL (75-99)
[2020-08-16] MEDS: METOPROLOL TARTRATE 25 MG TAB PO SCH (21:26)
[2020-08-16 21:56] LABS: Glucose,Whole Blood 135 mg/dL (75-99)
[2020-08-16 22:49] LABS: Glucose,Whole Blood 129 mg/dL (75-99)
--- NOTE | 2020-08-16 23:17 | PN ---
PROGRESS NOTE DATE OF SERVICE: 08/16/2020 REASON FOR FOLLOWUP: Leukocytosis. INTERVAL HISTORY: The patient did have a low-grade fever last night and was noted to have slight worsening of his white count the patient is hemodynamically stable, though. He seems to be breathing comfortably, though. He denies having any chest pain. Did have occasional cough. No diarrhea reported. PHYSICAL EXAMINATION: Blood pressure 108/56 with a pulse of 83, temperature 100. He is 95% on 5 L nasal cannula. General description is an elderly male lying in bed in no distress. RESPIRATORY SYSTEM: Unlabored breathing. Coarse breath sounds at the bases bilaterally. HEART: S1, S2. Regular rate and rhythm. ABDOMEN: Soft. Mildly distended. No guarding or rigidity. LABS: White count is up to 13,000 today. DIAGNOSTIC IMPRESSION AND PLAN: Patient with elevated white count on admission with initial concern for ischemic small bowel, status post resection. Also with in this patient who showed overall improvement but seemed to have slight worsening, now with white count up to 13, and he did have a low-grade fever. Blood culture was repeated yesterday and is so far negative. We will add Zosyn for Gram-negative coverage. Continue with daptomycin and Eraxis and monitor his clinical course closely. MMODL / IJN: [id number] /
[2020-08-16 23:52] LABS: Glucose,Whole Blood 86 mg/dL (75-99)
[2020-08-17] MEDS: PIPERACILLIN-TAZOBACTAM 3.375 GM in SODIUM CHLORIDE 0.9% 100 ML IVPB SCH ×4 (00:02→23:17)
[2020-08-17] MEDS: HEPARIN SODIUM,PORCINE 5,000 UNIT/ML 1 ML VIAL SQ SCH ×2 (00:03→08:27)
[2020-08-17 00:09] LABS: ABG HCO3 35 mmol/L (21-25); ABG Oxygen Saturation 95.7 % (94-97); ABG PCO2 64 mmHg (35-45); ABG PH 7.34 (7.35-7.45); ABG PO2 77 mmHg (83-108); ABG TCO2 37 mmol/L (19-24); Allen Test Performed? Yes
--- NOTE | 2020-08-17 00:26 | XR ---
EXAM: XR Chest, 1 View CLINICAL HISTORY: ITS.REASON XR Reason: shortness of breath TECHNIQUE: Frontal view of the chest. COMPARISON: CXR 08/16/20 FINDINGS: Lungs: Emphysema. Bibasilar opacities, atelectasis or infiltrates. Pleural space: Small pleural effusions, similar to prior exam. No pneumothorax. Heart: Previous midline sternotomy and CABG. Normal heart size. Normal pulmonary vascularity. Mediastinum: Unremarkable. Bones/joints: No acute osseous findings. Tubes, lines and devices: Right PICC extends to the SVC. Enteric tube extends to the stomach and beyond the [id number]. IMPRESSION: 1. Enteric tube and right PICC remain in place. 2. Persistent small bilateral pleural effusions. 3. Bibasilar opacities, atelectasis or infiltrates.
[2020-08-17 00:50] LABS: Glucose,Whole Blood 107 mg/dL (75-99)
[2020-08-17 02:02] LABS: Glucose,Whole Blood 150 mg/dL (75-99)
[2020-08-17 03:00] LABS: Glucose,Whole Blood 141 mg/dL (75-99)
[2020-08-17 04:05] LABS: Glucose,Whole Blood 111 mg/dL (75-99)
[2020-08-17 04:59] LABS: Anisocytosis Slight; Basophils # (A) 0.2 k/uL (0-0.2); Basophils % (A) 2 %; Eosinophils # (A) 0.1 k/uL (0-0.7); Eosinophils % (A) 1 %; HCT 32.6 % (39.0-53.0); HGB 10.3 gm/dL (13.0-17.5); Hypochromasia Marked; Lymphocytes # (A) 0.9 k/uL (1.0-4.8); Lymphocytes % (A) 7 %; MCHC 31.7 g/dL (31.0-37.0); MCV 97.6 fL (80.0-100.0); Macrocytosis Slight; Mean Platelet Volume 8.8; Monocytes % (A) 9 %; Neutrophils # (A) 9.5 k/uL (1.3-7.7); Neutrophils % (A) 79 %; Platelet Count 285 k/uL (150-450); RBC 3.34 m/uL (4.30-5.90); RDW 16.3 % (11.5-15.5); WBC 11.9 k/uL (3.8-10.6)
[2020-08-17 05:02] LABS: Calcium 9.8 mg/dL (8.4-10.2); Magnesium 2.4 mg/dL (1.6-2.3); Phosphorus 5.2 mg/dL (2.5-4.5); Potassium 5.4 mmol/L (3.5-5.1)
[2020-08-17 05:26] LABS: Target Cells Present
[2020-08-17 05:42] LABS: Glucose,Whole Blood 141 mg/dL (75-99)
[2020-08-17 05:44] LABS: Glucose,Whole Blood 94 mg/dL (75-99)
[2020-08-17] MEDS: METOPROLOL TARTRATE 25 MG TAB PO SCH (06:50)
[2020-08-17] MEDS: AMIODARONE 200 MG TAB PO SCH ×2 (06:50→20:35)
[2020-08-17] MEDS ORDERED: SODIUM CHLORIDE 0.9% 1,000 ML IV SCH (07:15)
[2020-08-17] MEDS ORDERED: DEXTROSE 5% IN WATER 100 ML with AMIODARONE 150 MG IV ONE (07:15)
[2020-08-17 07:17] LABS: Glucose,Whole Blood 114 mg/dL (75-99)
--- NOTE | 2020-08-17 07:25 | P.PN ---
Subjective Progress Note Date: 08/17/20 Principal diagnosis: Coronary artery disease and status post CABG This is a 80-year-old gentleman with coronary artery disease and status post CABG as well as paroxysmal atrial fibrillation as well as history of ischemic bowel and status post surgery. The patient was seen today August 172019. Unfortunately he did have a rough night. He developed acute hypoxic respiratory failure which she had in the past and also he went into A. fib with RVR. Currently the patient is on BiPAP. Hemodynamically he is stable. Yesterday the dose of beta apolinar was increased and I will suggest to increase his dose later on today. Also we need to consider starting the patient on oral anticoagulation. Objective - Vital Signs Vital signs: Vital Signs Temp 98.2 F 08/17/20 00:00 Pulse 138 H 08/17/20 07:00 Resp 40 H 08/17/20 07:00 BP 153/116 08/17/20 07:00 Pulse Ox 96 08/17/20 07:00 Intake & Output 08/16/20 08/17/20 08/17/20 18:59 06:59 18:59 Intake Total 980.316 718.234 10 Output Total 1300 925 60 Balance -319.684 -206.766 -50 Weight 87.7 kg 87.1 kg Intake: IV 340 190 10 Anidulafungin 100 mg In 100 Sodium Chloride 0.9% 100 ml @ 84 mls/hr IVPB DAILY [facility] Rx#:[id number] Piperacillin-Tazobactam 3 100 .375 gm In Sodium Chloride 0.9% 100 ml @ 25 mls/hr IVPB Q8HR [facility] Rx# :[id number] Sodium Chloride 0.9% 1, 100 90 10 000 ml @ 10 mls/hr IV . Q24H [facility] Rx#:[id number] TPN 140 Intake, IV Titration 160.316 18.234 0 Amount DAPTOmycin 650 mg In 50 Sodium Chloride 0.9% 50 ml @ 100 mls/hr IVPB Q24H [facility] Rx#:[id number] Dextrose 5% in Water 1, 80 000 ml @ 20 mls/hr IV . Q24H [facility] Rx#:[id number] Insulin Regular 100 unit 30.316 18.234 0 In Sodium Chloride 0.9% 100 ml @ Per Protocol IV .Q0M [facility] Rx#:[id number] Tube Feeding 400 420 Other 80 90 Output: Gastric Drainage 850 Urine 450 725 60 Stool 200 Other: Voiding Method Indwelling Catheter Indwelling Catheter ABP, PAP, CO, CI - Last Documented Arterial Blood Pressure 131/50 Pulmonary Artery Pressure 33/14 Cardiac Output 6.7 Cardiac Index 3.1 - Constitutional General appearance: Present: no acute distress - Respiratory Respiratory: bilateral: rales - Cardiovascular Rhythm: irregularly irregular - Labs CBC & Chem 7: 08/17/20 04:46 08/17/20 04:46 Labs: Abnormal Lab Results - Last 24 Hours (Table) 08/16/20 08/16/20 08/16/20 Range/Units 04:14 07:46 09:03 WBC (3.8-10.6) k/uL RBC (4.30-5.90) m/uL Hgb (13.0-17.5) gm/dL Hct (39.0-53.0) % RDW (11.5-15.5) % Neutrophils # (1.3-7.7) k/uL Lymphocytes # (1.0-4.8) k/uL ABG pH (7.35-7.45) ABG pCO2 (35-45) mmHg ABG pO2 (83-108) mmHg ABG HCO3 (21-25) mmol/L ABG Total CO2 (19-24) mmol/L Sodium (137-145) mmol/L Potassium (3.5-5.1) mmol/L Carbon Dioxide (22-30) mmol/L BUN (9-20) mg/dL Creatinine (0.66-1.25) mg/dL Glucose (74-99) mg/dL POC Glucose (mg/dL) 131 H 119 H (75-99) mg/dL Phosphorus (2.5-4.5) mg/dL Magnesium (1.6-2.3) mg/dL Procalcitonin 1.12 H (0.02-0.09) ng/mL 08/16/20 08/16/20 08/16/20 Range/Units 10:40 11:51 13:00 WBC (3.8-10.6) k/uL RBC (4.30-5.90) m/uL Hgb (13.0-17.5) gm/dL Hct (39.0-53.0) % RDW (11.5-15.5) % Neutrophils # (1.3-7.7) k/uL Lymphocytes # (1.0-4.8) k/uL ABG pH (7.35-7.45) ABG pCO2 (35-45) mmHg ABG pO2 (83-108) mmHg ABG HCO3 (21-25) mmol/L ABG Total CO2 (19-24) mmol/L Sodium (137-145) mmol/L Potassium (3.5-5.1) mmol/L Carbon Dioxide (22-30) mmol/L BUN (9-20) mg/dL Creatinine (0.66-1.25) mg/dL Glucose (74-99) mg/dL POC Glucose (mg/dL) 105 H 101 H 134 H (75-99) mg/dL Phosphorus (2.5-4.5) mg/dL Magnesium (1.6-2.3) mg/dL Procalcitonin (0.02-0.09) ng/mL 08/16/20 08/16/20 08/16/20 Range/Units 14:08 15:19 16:25 WBC (3.8-10.6) k/uL RBC (4.30-5.90) m/uL Hgb (13.0-17.5) gm/dL Hct (39.0-53.0) % RDW (11.5-15.5) % Neutrophils # (1.3-7.7) k/uL Lymphocytes # (1.0-4.8) k/uL ABG pH (7.35-7.45) ABG pCO2 (35-45) mmHg ABG pO2 (83-108) mmHg ABG HCO3 (21-25) mmol/L ABG Total CO2 (19-24) mmol/L Sodium (137-145) mmol/L Potassium (3.5-5.1) mmol/L Carbon Dioxide (22-30) mmol/L BUN (9-20) mg/dL Creatinine (0.66-1.25) mg/dL Glucose (74-99) mg/dL POC Glucose (mg/dL) 116 H 121 H 118 H (75-99) mg/dL Phosphorus (2.5-4.5) mg/dL Magnesium (1.6-2.3) mg/dL Procalcitonin (0.02-0.09) ng/mL 08/16/20 08/16/20 08/16/20 Range/Units 18:01 18:59 20:25 WBC (3.8-10.6) k/uL RBC (4.30-5.90) m/uL Hgb (13.0-17.5) gm/dL Hct (39.0-53.0) % RDW (11.5-15.5) % Neutrophils # (1.3-7.7) k/uL Lymphocytes # (1.0-4.8) k/uL ABG pH (7.35-7.45) ABG pCO2 (35-45) mmHg ABG pO2 (83-108) mmHg ABG HCO3 (21-25) mmol/L ABG Total CO2 (19-24) mmol/L Sodium (137-145) mmol/L Potassium (3.5-5.1) mmol/L Carbon Dioxide (22-30) mmol/L BUN (9-20) mg/dL Creatinine (0.66-1.25) mg/dL Glucose (74-99) mg/dL POC Glucose (mg/dL) 114 H 115 H 135 H (75-99) mg/dL Phosphorus (2.5-4.5) mg/dL Magnesium (1.6-2.3) mg/dL Procalcitonin (0.02-0.09) ng/mL 08/16/20 08/16/20 08/16/20 Range/Units 21:09 21:53 22:48 WBC (3.8-10.6) k/uL RBC (4.30-5.90) m/uL Hgb (13.0-17.5) gm/dL Hct (39.0-53.0) % RDW (11.5-15.5) % Neutrophils # (1.3-7.7) k/uL Lymphocytes # (1.0-4.8) k/uL ABG pH (7.35-7.45) ABG pCO2 (35-45) mmHg ABG pO2 (83-108) mmHg ABG HCO3 (21-25) mmol/L ABG Total CO2 (19-24) mmol/L Sodium (137-145) mmol/L Potassium (3.5-5.1) mmol/L Carbon Dioxide (22-30) mmol/L BUN (9-20) mg/dL Creatinine (0.66-1.25) mg/dL Glucose (74-99) mg/dL POC Glucose (mg/dL) 130 H 135 H 129 H (75-99) mg/dL Phosphorus (2.5-4.5) mg/dL Magnesium (1.6-2.3) mg/dL Procalcitonin (0.02-0.09) ng/mL 08/17/20 08/17/20 08/17/20 Range/Units 00:07 00:48 01:51 WBC (3.8-10.6) k/uL RBC (4.30-5.90) m/uL Hgb (13.0-17.5) gm/dL Hct (39.0-53.0) % RDW (11.5-15.5) % Neutrophils # (1.3-7.7) k/uL Lymphocytes # (1.0-4.8) k/uL ABG pH 7.34 L (7.35-7.45) ABG pCO2 64 H (35-45) mmHg ABG pO2 77 L (83-108) mmHg ABG HCO3 35 H (21-25) mmol/L ABG Total CO2 37 H (19-24) mmol/L Sodium (137-145) mmol/L Potassium (3.5-5.1) mmol/L Carbon Dioxide (22-30) mmol/L BUN (9-20) mg/dL Creatinine (0.66-1.25) mg/dL Glucose (74-99) mg/dL POC Glucose (mg/dL) 107 H 150 H (75-99) mg/dL Phosphorus (2.5-4.5) mg/dL Magnesium (1.6-2.3) mg/dL Procalcitonin (0.02-0.09) ng/mL 08/17/20 08/17/20 08/17/20 Range/Units 02:59 04:03 04:46 WBC (3.8-10.6) k/uL RBC (4.30-5.90) m/uL Hgb (13.0-17.5) gm/dL Hct (39.0-53.0) % RDW (11.5-15.5) % Neutrophils # (1.3-7.7) k/uL Lymphocytes # (1.0-4.8) k/uL ABG pH (7.35-7.45) ABG pCO2 (35-45) mmHg ABG pO2 (83-108) mmHg ABG HCO3 (21-25) mmol/L ABG Total CO2 (19-24) mmol/L Sodium 146 H (137-145) mmol/L Potassium 5.4 H (3.5-5.1) mmol/L Carbon Dioxide 36 H (22-30) mmol/L BUN 78 H (9-20) mg/dL Creatinine 1.99 H (0.66-1.25) mg/dL Glucose 147 H (74-99) mg/dL POC Glucose (mg/dL) 141 H 111 H (75-99) mg/dL Phosphorus 5.2 H (2.5-4.5) mg/dL Magnesium 2.4 H (1.6-2.3) mg/dL Procalcitonin (0.02-0.09) ng/mL 08/17/20 08/17/20 08/17/20 Range/Units 04:46 05:40 07:16 WBC 11.9 H (3.8-10.6) k/uL RBC 3.34 L (4.30-5.90) m/uL Hgb 10.3 L (13.0-17.5) gm/dL Hct 32.6 L (39.0-53.0) % RDW 16.3 H (11.5-15.5) % Neutrophils # 9.5 H (1.3-7.7) k/uL Lymphocytes # 0.9 L (1.0-4.8) k/uL ABG pH (7.35-7.45) ABG pCO2 (35-45) mmHg ABG pO2 (83-108) mmHg ABG HCO3 (21-25) mmol/L ABG Total CO2 (19-24) mmol/L Sodium (137-145) mmol/L Potassium (3.5-5.1) mmol/L Carbon Dioxide (22-30) mmol/L BUN (9-20) mg/dL Creatinine (0.66-1.25) mg/dL Glucose (74-99) mg/dL POC Glucose (mg/dL) 141 H 114 H (75-99) mg/dL Phosphorus (2.5-4.5) mg/dL Magnesium (1.6-2.3) mg/dL Procalcitonin (0.02-0.09) ng/mL Microbiology - Last 24 Hours (Table) 08/15/20 21:11 Blood Culture - Preliminary Blood No Growth after 24 hours Assessment and Plan Assessment: Assessment #1 coronary artery disease and status post CABG #2 permanent atrial fibrillation was controlled heart rate #3 multiple comorbid conditions Plan #1 continue the current medical regimen #2 suggest to increase the dose of beta apolinar #3 suggest to consider oral anticoagulation
[2020-08-17] MEDS ORDERED: AMIODARONE 360 MG in DEXTROSE 5% IN WATER 200 ML IV ONE ×2 (07:30)
[2020-08-17] MEDS: ANIDULAFUNGIN 100 MG in SODIUM CHLORIDE 0.9% 100 ML IVPB SCH (08:26)
[2020-08-17] MEDS: ASPIRIN 81 MG PO SCH (08:27)
[2020-08-17] MEDS: LEVOTHYROXINE IVP 100 MCG/5 ML VIAL IV SCH (08:27)
[2020-08-17] MEDS: PANTOPRAZOLE 40 MG/10 ML VIAL IVP SCH ×2 (08:27→20:34)
[2020-08-17] MEDS: BUDESONIDE 1 MG/2 ML NEBU INHALATION SCH ×2 (08:45→21:34)
[2020-08-17] MEDS: IPRATROPIUM-ALBUTEROL 3 ML NEB INHALATION SCH ×4 (08:45→21:33)
[2020-08-17] MEDS: ACETYLCYSTEINE 800 MG/4 ML VIAL INHALATION SCH ×2 (08:45→12:21)
[2020-08-17] MEDS: FORMOTEROL FUMARATE 20 MCG/2 ML NEBU INHALATION SCH ×2 (08:45→21:33)
[2020-08-17 08:46] LABS: Glucose,Whole Blood 110 mg/dL (75-99)
--- NOTE | 2020-08-17 08:47 | P.PN ---
Subjective Progress Note Date: 08/17/20 Principal diagnosis: Symptomatic triple-vessel coronary artery disease, mild left ventricular dysfunction. Previuos medical history of stenting to his right coronary artery in 2002, hypertension, hyperlipidemia, hypothyroid status post partial thyroidectomy, previous tobacco dependence quit smoking 20 years ago, moderate chronic obstructive pulmonary disease with preoperative FEV1 of 56% of predicted value, bullous emphysema, remote history of pneumonia, type 2 diabetes mellitus with a preoperative hemoglobin A1c of 5.2%, chronic kidney disease stage III with a baseline creatinine of 1.4-1.5, family history of premature coronary artery disease with brother having had CABG at less than 50 years old. POD #30 double coronary artery bypass grafting using the left internal mammary artery to left anterior descending coronary artery, reverse greater saphenous vein graft from the aorta to the posterior descending coronary artery. Exclusion of the left atrial appendage using a 35 mm Atriclip, endoscopic harvesting of the right greater saphenous vein from the groin to above the ankle level, graft flow measurement using the GeoMestim system, intraoperative transesophageal echocardiogram and epi-aortic scanning. Postoperative acute blood loss anemia, expected outcome from hemodilution and cardiopulmonary bypass. Postoperative paroxysmal atrial fibrillation, unexpected but common outcome after open heart surgery. Pneumoperitoneum, unexpected Acute on chronic kidney disease secondary to ATN Pneumatosis of the small bowel POD #24 ischemic bowel, small bowel resection Acute hypoxic respiratory failure with reintubation, prolonged mechanical ventilation, unexpected Acute abdomen, intraperitoneal hemorrhage POD #15 Exploratory laparotomy, washout of peritoneal cavity, ileostomy with small bowel resection The patient is currently laying in bed in the intensive care unit on bipap in no acute distress. Currently vacillating back and forth between NSR in the 80-90s and atrial fibrillation with rate 120-140s. NG tube in place, bolus tube feeding continues with good tolerance. Remains on IV Eraxis, daptomyocin, Zosyn re-added by Dr. Frederick due to low grade fever and increased WBC. Sputum culture from 08/03/20 demonstrating aurora albicans, blood culture negative, CVC catheter tip removed 08/03/20 growing staph epidermis. Patient continues to [place] ve liquid light brown stool through ileostomy, 200mL in the last 12 hours. Wound vac in place to mid abdominal incision, changed M-W-F. Equal strength bilaterally but weak, was able to stand at the bedside with PT assistance. Remains calm and cooperative, no new complaints. Objective - Vital Signs Vital signs: Vital Signs Temp 98.2 F 08/17/20 00:00 Pulse 138 H 08/17/20 07:00 Resp 40 H 08/17/20 07:00 BP 153/116 08/17/20 07:00 Pulse Ox 96 08/17/20 07:00 Intake & Output 08/16/20 08/17/20 08/17/20 18:59 06:59 18:59 Intake Total 980.316 718.234 10 Output Total 1300 925 60 Balance -319.684 -206.766 -50 Weight 87.7 kg 87.1 kg Intake: IV 340 190 10 Anidulafungin 100 mg In 100 Sodium Chloride 0.9% 100 ml @ 84 mls/hr IVPB DAILY [facility] Rx#:[id number] Piperacillin-Tazobactam 3 100 .375 gm In Sodium Chloride 0.9% 100 ml @ 25 mls/hr IVPB Q8HR [facility] Rx# :[id number] Sodium Chloride 0.9% 1, 100 90 10 000 ml @ 10 mls/hr IV . Q24H [facility] Rx#:[id number] TPN 140 Intake, IV Titration 160.316 18.234 0 Amount DAPTOmycin 650 mg In 50 Sodium Chloride 0.9% 50 ml @ 100 mls/hr IVPB Q24H [facility] Rx#:[id number] Dextrose 5% in Water 1, 80 000 ml @ 20 mls/hr IV . Q24H [facility] Rx#:[id number] Insulin Regular 100 unit 30.316 18.234 0 In Sodium Chloride 0.9% 100 ml @ Per Protocol IV .Q0M [facility] Rx#:[id number] Tube Feeding 400 420 Other 80 90 Output: Gastric Drainage 850 Urine 450 725 60 Stool 200 Other: Voiding Method Indwelling Catheter Indwelling Catheter ABP, PAP, CO, CI - Last Documented Arterial Blood Pressure 131/50 Pulmonary Artery Pressure 33/14 Cardiac Output 6.7 Cardiac Index 3.1 - Constitutional General appearance: Present: cooperative, no acute distress - Respiratory Details: Lungs sounds diminished bilaterally with coarse breath sounds in the bases. Respirations even, non-labored. Currently on Bipap with FiO2 35%, IPAP 15, EPAP 5, oxygen saturation mid 90s. Strong loose productive cough. - Cardiovascular Details: S1, S2 present. Irregular rate and rhythm, afib on telemetry with rate in the 120s, patient goes back and forth between afib and NSR. Sternum stable. Palpable peripheral pulses bilaterally. Generalized trace upper extremity edema present, continues to be less everyday. Heart hugger, antiembolism stockings, SCDs present. Right brachial PICC line present. - Gastrointestinal Gastrointestinal Comment(s): Abdomen soft, nontender, nondistended. Active bowel sounds present. NG tube present, continues with bolus tube feeding. Ileostomy present to RLQ, stoma pink and moist, positive light brown liquid stool, 200 mL in the last 12 hours. - Genitourinary Genitourinary Comment(s): Villafana catheter present draining clear, yellow urine. Output 50-90 mL/h overnight, 1175 mL in the last 24 hours - Integumentary Integumentary Comment(s): Skin is warm and dry. Anterior chest incision well approximated and covered with dry intact dressing. Right lower extremity EVH site well approximated. Mid abdominal incision open, wound vac in place. - Neurologic Neurologic: Present: CNII-XII intact - Musculoskeletal Musculoskeletal: Present: generalized weakness, strength equal bilaterally - Psychiatric Psychiatric Comment(s): anxious at times Psychiatric: Present: A&O x's 3, appropriate affect, intact judgment & insight - Allied health notes Allied health notes reviewed: nursing - Labs CBC & Chem 7: 08/17/20 04:46 08/17/20 04:46 Labs: Abnormal Lab Results - Last 24 Hours (Table) 08/16/20 08/16/20 08/16/20 Range/Units 04:14 09:03 10:40 WBC (3.8-10.6) k/uL RBC (4.30-5.90) m/uL Hgb (13.0-17.5) gm/dL Hct (39.0-53.0) % RDW (11.5-15.5) % Neutrophils # (1.3-7.7) k/uL Lymphocytes # (1.0-4.8) k/uL ABG pH (7.35-7.45) ABG pCO2 (35-45) mmHg ABG pO2 (83-108) mmHg ABG HCO3 (21-25) mmol/L ABG Total CO2 (19-24) mmol/L Sodium (137-145) mmol/L Potassium (3.5-5.1) mmol/L Carbon Dioxide (22-30) mmol/L BUN (9-20) mg/dL Creatinine (0.66-1.25) mg/dL Glucose (74-99) mg/dL POC Glucose (mg/dL) 119 H 105 H (75-99) mg/dL Phosphorus (2.5-4.5) mg/dL Magnesium (1.6-2.3) mg/dL Procalcitonin 1.12 H (0.02-0.09) ng/mL 08/16/20 08/16/20 08/16/20 Range/Units 11:51 13:00 14:08 WBC (3.8-10.6) k/uL RBC (4.30-5.90) m/uL Hgb (13.0-17.5) gm/dL Hct (39.0-53.0) % RDW (11.5-15.5) % Neutrophils # (1.3-7.7) k/uL Lymphocytes # (1.0-4.8) k/uL ABG pH (7.35-7.45) ABG pCO2 (35-45) mmHg ABG pO2 (83-108) mmHg ABG HCO3 (21-25) mmol/L ABG Total CO2 (19-24) mmol/L Sodium (137-145) mmol/L Potassium (3.5-5.1) mmol/L Carbon Dioxide (22-30) mmol/L BUN (9-20) mg/dL Creatinine (0.66-1.25) mg/dL Glucose (74-99) mg/dL POC Glucose (mg/dL) 101 H 134 H 116 H (75-99) mg/dL Phosphorus (2.5-4.5) mg/dL Magnesium (1.6-2.3) mg/dL Procalcitonin (0.02-0.09) ng/mL 08/16/20 08/16/20 08/16/20 Range/Units 15:19 16:25 18:01 WBC (3.8-10.6) k/uL RBC (4.30-5.90) m/uL Hgb (13.0-17.5) gm/dL Hct (39.0-53.0) % RDW (11.5-15.5) % Neutrophils # (1.3-7.7) k/uL Lymphocytes # (1.0-4.8) k/uL ABG pH (7.35-7.45) ABG pCO2 (35-45) mmHg ABG pO2 (83-108) mmHg ABG HCO3 (21-25) mmol/L ABG Total CO2 (19-24) mmol/L Sodium (137-145) mmol/L Potassium (3.5-5.1) mmol/L Carbon Dioxide (22-30) mmol/L BUN (9-20) mg/dL Creatinine (0.66-1.25) mg/dL Glucose (74-99) mg/dL POC Glucose (mg/dL) 121 H 118 H 114 H (75-99) mg/dL Phosphorus (2.5-4.5) mg/dL Magnesium (1.6-2.3) mg/dL Procalcitonin (0.02-0.09) ng/mL 08/16/20 08/16/20 08/16/20 Range/Units 18:59 20:25 21:09 WBC (3.8-10.6) k/uL RBC (4.30-5.90) m/uL Hgb (13.0-17.5) gm/dL Hct (39.0-53.0) % RDW (11.5-15.5) % Neutrophils # (1.3-7.7) k/uL Lymphocytes # (1.0-4.8) k/uL ABG pH (7.35-7.45) ABG pCO2 (35-45) mmHg ABG pO2 (83-108) mmHg ABG HCO3 (21-25) mmol/L ABG Total CO2 (19-24) mmol/L Sodium (137-145) mmol/L Potassium (3.5-5.1) mmol/L Carbon Dioxide (22-30) mmol/L BUN (9-20) mg/dL Creatinine (0.66-1.25) mg/dL Glucose (74-99) mg/dL POC Glucose (mg/dL) 115 H 135 H 130 H (75-99) mg/dL Phosphorus (2.5-4.5) mg/dL Magnesium (1.6-2.3) mg/dL Procalcitonin (0.02-0.09) ng/mL 08/16/20 08/16/20 08/17/20 Range/Units 21:53 22:48 00:07 WBC (3.8-10.6) k/uL RBC (4.30-5.90) m/uL Hgb (13.0-17.5) gm/dL Hct (39.0-53.0) % RDW (11.5-15.5) % Neutrophils # (1.3-7.7) k/uL Lymphocytes # (1.0-4.8) k/uL ABG pH 7.34 L (7.35-7.45) ABG pCO2 64 H (35-45) mmHg ABG pO2 77 L (83-108) mmHg ABG HCO3 35 H (21-25) mmol/L ABG Total CO2 37 H (19-24) mmol/L Sodium (137-145) mmol/L Potassium (3.5-5.1) mmol/L Carbon Dioxide (22-30) mmol/L BUN (9-20) mg/dL Creatinine (0.66-1.25) mg/dL Glucose (74-99) mg/dL POC Glucose (mg/dL) 135 H 129 H (75-99) mg/dL Phosphorus (2.5-4.5) mg/dL Magnesium (1.6-2.3) mg/dL Procalcitonin (0.02-0.09) ng/mL 08/17/20 08/17/20 08/17/20 Range/Units 00:48 01:51 02:59 WBC (3.8-10.6) k/uL RBC (4.30-5.90) m/uL Hgb (13.0-17.5) gm/dL Hct (39.0-53.0) % RDW (11.5-15.5) % Neutrophils # (1.3-7.7) k/uL Lymphocytes # (1.0-4.8) k/uL ABG pH (7.35-7.45) ABG pCO2 (35-45) mmHg ABG pO2 (83-108) mmHg ABG HCO3 (21-25) mmol/L ABG Total CO2 (19-24) mmol/L Sodium (137-145) mmol/L Potassium (3.5-5.1) mmol/L Carbon Dioxide (22-30) mmol/L BUN (9-20) mg/dL Creatinine (0.66-1.25) mg/dL Glucose (74-99) mg/dL POC Glucose (mg/dL) 107 H 150 H 141 H (75-99) mg/dL Phosphorus (2.5-4.5) mg/dL Magnesium (1.6-2.3) mg/dL Procalcitonin (0.02-0.09) ng/mL 08/17/20 08/17/20 08/17/20 Range/Units 04:03 04:46 04:46 WBC 11.9 H (3.8-10.6) k/uL RBC 3.34 L (4.30-5.90) m/uL Hgb 10.3 L (13.0-17.5) gm/dL Hct 32.6 L (39.0-53.0) % RDW 16.3 H (11.5-15.5) % Neutrophils # 9.5 H (1.3-7.7) k/uL Lymphocytes # 0.9 L (1.0-4.8) k/uL ABG pH (7.35-7.45) ABG pCO2 (35-45) mmHg ABG pO2 (83-108) mmHg ABG HCO3 (21-25) mmol/L ABG Total CO2 (19-24) mmol/L Sodium 146 H (137-145) mmol/L Potassium 5.4 H (3.5-5.1) mmol/L Carbon Dioxide 36 H (22-30) mmol/L BUN 78 H (9-20) mg/dL Creatinine 1.99 H (0.66-1.25) mg/dL Glucose 147 H (74-99) mg/dL POC Glucose (mg/dL) 111 H (75-99) mg/dL Phosphorus 5.2 H (2.5-4.5) mg/dL Magnesium 2.4 H (1.6-2.3) mg/dL Procalcitonin (0.02-0.09) ng/mL 08/17/20 08/17/20 Range/Units 05:40 07:16 WBC (3.8-10.6) k/uL RBC (4.30-5.90) m/uL Hgb (13.0-17.5) gm/dL Hct (39.0-53.0) % RDW (11.5-15.5) % Neutrophils # (1.3-7.7) k/uL Lymphocytes # (1.0-4.8) k/uL ABG pH (7.35-7.45) ABG pCO2 (35-45) mmHg ABG pO2 (83-108) mmHg ABG HCO3 (21-25) mmol/L ABG Total CO2 (19-24) mmol/L Sodium (137-145) mmol/L Potassium (3.5-5.1) mmol/L Carbon Dioxide (22-30) mmol/L BUN (9-20) mg/dL Creatinine (0.66-1.25) mg/dL Glucose (74-99) mg/dL POC Glucose (mg/dL) 141 H 114 H (75-99) mg/dL Phosphorus (2.5-4.5) mg/dL Magnesium (1.6-2.3) mg/dL Procalcitonin (0.02-0.09) ng/mL Microbiology - Last 24 Hours (Table) 08/15/20 21:11 Blood Culture - Preliminary Blood No Growth after 24 hours - Imaging and Cardiology Chest x-ray: image reviewed Assessment and Plan Assessment: 1. Symptomatic triple-vessel coronary artery disease, status post 2 vessel CABG 2. Mild left ventricular dysfunction 3. Previuos history of stenting to his right coronary artery in 2002 4. Hypertension 5. Hyperlipidemia 6. Hypothyroid status post partial thyroidectomy 7. Previous tobacco dependence with bullous emphysema 8. Moderate chronic obstructive pulmonary disease with preoperative FEV1 of 56% of predicted value 9. Remote history of pneumonia 10. Type 2 diabetes mellitus with a preoperative hemoglobin A1c of 5.2% 11. Chronic kidney disease stage III with a baseline creatinine of 1.4-1.5 12. Family history of premature coronary artery disease with brother having had CABG at less than 50 years old 13. Postoperative acute blood loss anemia, expected outcome 14. Postoperative paroxysmal atrial fibrillation, unexpected, status post exclusion of the left atrial appendage 15. Pneumoperitoneum, unexpected 16. Acute on chronic kidney disease with hyponatremia, hyperkalemia 17. Pneumatosis of the small bowel, status post small bowel resection 18. Sputum culture positive for pseudomonas fluorescens, second sputum positive for aurora 19. Acute hypoxic respiratory failure with reintubation, prolonged mechanical ventilation 20. Acute abdomen, intraperitoneal hemorrhage, S/P exploratory laparotomy, washout of peritoneal cavity, ileostomy with small bowel resection 21. Generalized debility secondary to above Plan: 1. Continue low dose aspirin, beta apolinar. Will increase beta apolinar as tolerated 2. Continue amiodarone for afib. No anticoagulation at this time 3. Wean oxygen as tolerated. Bipap, bronchodilators, inhaled steroids per pulmonology management. Encourage incentive spirometry use when off bipap 4. Will monitor daily labs and chest x-rays. 5. GI/DVT prophylaxis. 6. Pain control with current medication regimen. 7. Insulin management per primary care service 8. Continue bolus tube feedings 9. Nephrology following. Avoid nephrotoxic agents. No lasix today 10. Strict accurate intake and output, daily weight 11. Continue IV Eraxis day #13, daptomycin day#13, re-added Zosyn, day 1 (previously on from 07/24/20-08/05/20) per infectious disease. 12. Wound vac to be changed -- 13. Increase activity as tolerated, continue with PT/OT. Out of bed to chair as much as tolerated. 14. Had discussion with patient regarding bipap, if bipap failed would patient want re-intubation, patient indicated he would like re-intubation. Will discuss with family 15. DC planning continues, social work on board to assist. Anticipate DC to LTAC when able 16. More recommendations to follow based on patient's clinical course. Time with Patient: Greater than 30
--- NOTE | 2020-08-17 09:58 | XR ---
EXAMINATION TYPE: XR chest 1V portable DATE OF EXAM: 08/17/2020 COMPARISON: 08/17/2020 INDICATION: Pleural effusion TECHNIQUE: Single frontal view of the chest is obtained. FINDINGS: The heart size is normal. The pulmonary vasculature is normal. Bibasilar infiltrates are present. This is greater in the left base. Infiltrate appears stable. Right pleural effusion appears diminished. Residual left pleural effusion may remain present. Nasogastric tube transverses the thorax with tip in the left upper quadrant of the abdomen. IMPRESSION: 1. Stable bibasilar infiltrates. 2. Improving right pleural effusion.
--- NOTE | 2020-08-17 10:12 | P.PN ---
Subjective Progress Note Date: 08/17/20 Principal diagnosis: Coronary artery disease, status post three-vessel bypass grafting 79-year-old white male patient with past medical history of hypertension, hyperlipidemia, moderate to severe COPD with the baseline FEV1 of 56% of predicted who came in on 07/18/2020 for elective two-vessel bypass grafting with PABLO to LAD, and SVG to the PDA. He was seen in the intensive care unit following surgery, patient was successfully weaned and extubated from mechanical ventilator and under 6 hours following his OR exit, is currently awake and alert, sitting in the chair, he is currently on 2 L of oxygen, his pulse ox is 98%, hemodynamically he stable, blood pressure is 106/51, PA pressures 35/11, CVP is 8, no fever or chills, IV fluids including the 0.9 normal saline at a r ate of 30 ML per hour, insulin is 4.5 units per hour, no vasoactive drips. Today's chest x-ray shows a pneumoperitoneum with lucency present underneath the right hemidiaphragm. He has left pleural and mediastinal chest tube, and there has been 500 mL of serosanguineous output from the left pleural and 350 mL from the mediastinal chest tube in the last 24 hours. Is having some mild discomfort under the right rib cage, but no acute distress, abdomen is distended but soft, he is hemodynamically stable, he is in sinus mechanism, no nausea vomiting or diarrhea. CT of the abdomen and pelvis is pending today's labs have been reviewed, showing white blood cell count of 11.9, hemoglobin of 9, sodium is 133, the rest of the electrolytes were within normal limits, B1 is 25 creatinine is 1.18 The patient is seen today 07/20/2020 in follow-up in the intensive care unit. He is currently sitting up in a chair at the bedside. Awake and alert in no acute distress. This is postoperative day #2, two-vessel coronary artery bypass surgery. He is currently on 2 L/m per nasal cannula maintaining good O2 saturation in the 90s. He did have issues with atrial fibrillation and is currently on Cardizem drip at 10 mg per hour. He did receive IV amiodarone, initiated on by mouth today. 0.9 normal saline at KVO. Chest x-ray reveals removal of mediastinal drains. Right-sided pneumoperitoneum is no longer appreciated. Left-sided chest tube remains in place. Bibasilar patchy atelectasis remains. White count 18.2. Hemoglobin 8.9. Platelet count 99,000. Sodium 127. Potassium 5.0. Creatinine 1.37. He is pulling approximately 1104-5790 ML's on the incentive spirometer. Continued on bronchodilators. Heparin for DVT prophylaxis. Patient is seen today 07/22/2020 in follow-up on the intensive care unit. He is currently sitting up in a chair at the bedside. He is having complaints of increasing shortness of breath. He is doing less on his incentive spirometer. Chest x-ray reveals small right pleural effusion with adjacent atelectasis and/or consolidation. He is currently maintaining O2 saturations in the low 90s on 3 L/m per nasal cannula. Respiratory rate 32. He is afebrile. Blood pressure stable. He did have issues with atrial fibrillation with rapid ventricular response last evening. He is on a Cardizem drip at 10 mg per hour. He will be transitioned to Eliquis. On oral amiodarone. 0.9 normal saline at 20 ML's per hour. Currently in sinus rhythm. White count 16.8. Hemoglobin 8.8. Sodium 124. Potassium 5.3. Bicarb 20. Creatinine 1.62. AST 147. ALT 130. He is still having issues with hypoactive bowel and not passing flatus or bowel movement since surgery. He remains on bronchodilators and IV Solu-Medrol. The patient is seen today 07/23/2020 in follow-up in the intensive care unit. Postoperative day #5. He is awake and alert in no acute distress. Currently sitting up in a chair at the bedside. He is feeling stronger today. Less short of breath. Maintaining O2 saturations in the 90s on 3 L/m per nasal cannula. Chest x-ray continues to show a small right pleural effusion with prominent right greater than left basilar atelectasis. He is doing better with his incentive spirometer. White count 15.2. Hemoglobin 81.1. Sodium 124. Potassium 5.3. Creatinine 1.84. AST 136. ALT 193. Albumin 3.4. No IV fluids currently. Is continued on bronchodilators, IV Solu-Medrol, anticoagulated with Eliquis. Still has not had a bowel movement. The patient is seen today 08/09/2020 in follow-up in the intensive care unit. He was extubated again yesterday 08/08/2020. He is currently on 2 L/m per nasal cannula. TPN at 75 ML's per hour. 0.9#10 ML's per hour. Amiodarone at 0.25 mg/m. Insulin drip at 7 units per hour. His x-ray reveals some evidence of fluid volume overload. He is also quite edematous. He'll receive Lasix 40 mg IVP 1 today. He'll also be placed on BiPAP 07/22 on 40% FiO2 as he remains slightly tachypneic and shallow breathing. He is quite weak and debilitated today. He remains on bronchodilators. Eraxis. Daptomycin. Being nourished with lipid and TPN. The patient is seen today 08/11/2020 in follow-up in the intensive care unit. He is currently resting fairly comfortably in bed. Maintaining O2 saturation in the 90s on 2 L/m per nasal cannula. He did wear BiPAP last night at 12/5 and 28% FiO2. He is being nourished with TPN at 75 ML's per hour. He is on insulin at 5.5 units per hour. He remains on amiodarone at 0.25 mg/m. White count 10.0. Hemoglobin 9.2. Sodium 145. Potassium 4.0. Creatinine 1.50. Glucose 120. Chest xray reveals persistent bilateral lung opacities and pleural effusions. No significant change. Remains on DuoNeb inhalations, daptomycin, meropenem. Remains slightly tachycardic. Temperature 99.2 axillary. Needs increased encouragement regarding the use of the incentive spirometer. The patient is seen today 08/12/2020 in follow-up in the intensive care unit. He is awake and alert in no acute distress. He is maintaining O2 saturation in the 90s on 2 L/m per nasal cannula. He has TPN at 75 ML's per hour. 0.9 normal sitting at 10 MLS per hour. Insulin drip at 4 units per hour. Chest x-ray showed a questionable left apical pneumothorax. Computed tomography scan of the chest revealed advanced upper lung emphysema but no convincing pneumothorax. There is moderate bilateral pleural effusions with atelectatic collapse of the entire bilateral lower lobes. Small pericardial effusion. He continues to breathe quite shallow with tachypnea. He remains quite weak and debilitated. Currently afebrile. Hemodynamically stable. White count 10.8. Hemoglobin 9.8. Sodium 143. Potassium 4.1. Creatinine 1.44. Glucose 152. AST 49. ALT 62. Albumin 2.5. He remains on daptomycin, Eraxis, bronchodilators. The patient is seen today 08/13/2020 in follow-up in the intensive care unit. He is currently resting fairly comfortably in bed. He remains awake. He is still very weak and debilitated. Physical therapy is working with the patient. He continues with rapid shallow breathing despite encouraging him to take slower deeper breaths. He is maintaining good O2 saturation in the 90s on 2 L/m per nasal cannula. He has TPN for nourishment at 75 ML's per hour. 0.9#10 mL per hour. Insulin drip at 7 units per hour. Chest x-ray continued showing evidence of COPD and continue small to moderate effusions with adjacent atelectasis/ consolidations. He continues to need increased encouragement to utilize the incentive spirometer and cough and deep breathing exercises. White count 11.7. Hemoglobin 10.0. Sodium 144. Potassium 4.2. Creatinine 1.47. Glucose 151. He remains on DuoNeb inhalations, Pulmicort inhalations. Antibiotics in the form of daptomycin. Eraxis. Heparin for DVT prophylaxis. The patient is seen today 08/16/2020 in follow-up in the intensive care unit. Postoperative day #29 of his coronary artery bypass grafting. He is awake and alert in no acute distress. He is currently sitting up in a chair at the bedside. Maintaining O2 saturations up to 99% on 5 L/m per nasal cannula. He remains tachypneic. He has a respiratory pattern of rapid shallow breathing. Chest x-ray reveals COPD with continued small pleural effusions and patchy atelectasis in the bases. He is status post left-sided thoracentesis with 1.4 L of turbid blood tinged fluid removed yesterday. He is status post 5 units of p acked red blood cells this admission. Current hemoglobin 10.3. Platelet count 370. White count 13.5. Sodium 142. Potassium 4.7. Creatinine 1.55. He remains on bronchodilators, Mucomyst, Pulmicort. Insulin drip at 3.5 units per hour. Being nourished with Glucerna. TPN's at 35 mL per hour. 0.9 normal saline at 10 MLS per hour. The patient is seen today 08/17/2020 in follow-up in the intensive care unit. This is postoperative day #30 of his coronary artery bypass grafting. He is currently resting fairly comfortably in bed. He is on BiPAP 15/5 and 35% FiO2. He is 0.9 normal saline at 50 MLS per hour. He is awake. Chest x-ray continues to show stable bibasilar infiltrates. There is some improvement in the right- sided pleural effusion. White count 11.9. Hemoglobin 10.3. Platelets 285. Sodium 136. Potassium 5.4. Creatinine 1.99. Glucose 147. He remains on DuoNeb inhalations, Pulmicort and Perforomist inhalations, Eraxis, Zosyn, daptomycin. Follow-up blood cultures reveal no growth to date. Objective - Vital Signs Vital signs: Vital Signs Temp 98.2 F 08/17/20 08:00 Pulse 79 08/17/20 09:14 Resp 40 H 08/17/20 08:00 BP 163/134 08/17/20 08:00 Pulse Ox 99 08/17/20 08:00 Intake & Output 08/16/20 08/17/20 08/17/20 18:59 06:59 18:59 Intake Total 980.316 718.234 470 Output Total 1300 925 280 Balance -319.684 -206.766 190 Weight 87.7 kg 87.1 kg Intake: IV 340 190 210 Anidulafungin 100 mg In 100 100 Sodium Chloride 0.9% 100 ml @ 84 mls/hr IVPB DAILY [facility] Rx#:[id number] Piperacillin-Tazobactam 3 100 100 .375 gm In Sodium Chloride 0.9% 100 ml @ 25 mls/hr IVPB Q8HR [facility] Rx# :[id number] Sodium Chloride 0.9% 1, 100 90 10 000 ml @ 10 mls/hr IV . Q24H [facility] Rx#:[id number] TPN 140 Intake, IV Titration 160.316 18.234 50 Amount DAPTOmycin 650 mg In 50 Sodium Chloride 0.9% 50 ml @ 100 mls/hr IVPB Q24H [facility] Rx#:[id number] Dextrose 5% in Water 1, 80 000 ml @ 20 mls/hr IV . Q24H [facility] Rx#:[id number] Insulin Regular 100 unit 30.316 18.234 0 In Sodium Chloride 0.9% 100 ml @ Per Protocol IV .Q0M [facility] Rx#:[id number] Sodium Chloride 0.9% 1, 50 000 ml @ 50 mls/hr IV . Q20H [facility] Rx#:[id number] Tube Feeding 400 420 180 Other 80 90 30 Output: Gastric Drainage 850 180 Urine 450 725 100 Stool 200 Other: Voiding Method Indwelling Catheter Indwelling Catheter ABP, PAP, CO, CI - Last Documented Arterial Blood Pressure 131/50 Pulmonary Artery Pressure 33/14 Cardiac Output 6.7 Cardiac Index 3.1 - Exam GENERAL EXAM: Alert, 79-year-old male patient, very weak and debilitated, on BiPAP 15/5 and 35% FiO2, fairly comfortable in no apparent distress. HEAD: Normocephalic/atraumatic. EYES: Normal reaction of pupils, equal size. Conjunctiva pink, sclera white. NOSE: Clear with pink turbinates. THROAT: No erythema or exudates. NECK: No masses, no JVD, no thyroid enlargement, no adenopathy. CHEST: No chest wall deformity. Symmetrical expansion. Midsternal incision is clean dry and intact LUNGS: Equal air entry with scattered crackles in the bases. CVS: Regular rate and rhythm, normal S1 and S2, no gallops, no murmurs, no rubs ABDOMEN: Incision clean dry well approximated. Wound VAC in place. Ileostomy the right side of the abdomen EXTREMITIES: No clubbing, no edema, no cyanosis, 2+ pulses and upper and lower extremities. MUSCULOSKELETAL: Muscle strength and tone normal. SPINE: No scoliosis or deformity SKIN: No rashes CENTRAL NERVOUS SYSTEM: No focal deficits, tone is normal in all 4 extremities. PSYCHIATRIC: Alert and oriented -3. Appropriate affect. Intact judgment and insight. - Labs CBC & Chem 7: 08/17/20 04:46 08/17/20 04:46 Labs: Abnormal Lab Results - Last 24 Hours (Table) 08/16/20 08/16/20 08/16/20 Range/Units 10:40 11:51 13:00 WBC (3.8-10.6) k/uL RBC (4.30-5.90) m/uL Hgb (13.0-17.5) gm/dL Hct (39.0-53.0) % RDW (11.5-15.5) % Neutrophils # (1.3-7.7) k/uL Lymphocytes # (1.0-4.8) k/uL ABG pH (7.35-7.45) ABG pCO2 (35-45) mmHg ABG pO2 (83-108) mmHg ABG HCO3 (21-25) mmol/L ABG Total CO2 (19-24) mmol/L Sodium (137-145) mmol/L Potassium (3.5-5.1) mmol/L Carbon Dioxide (22-30) mmol/L BUN (9-20) mg/dL Creatinine (0.66-1.25) mg/dL Glucose (74-99) mg/dL POC Glucose (mg/dL) 105 H 101 H 134 H (75-99) mg/dL Phosphorus (2.5-4.5) mg/dL Magnesium (1.6-2.3) mg/dL 08/16/20 08/16/20 08/16/20 Range/Units 14:08 15:19 16:25 WBC (3.8-10.6) k/uL RBC (4.30-5.90) m/uL Hgb (13.0-17.5) gm/dL Hct (39.0-53.0) % RDW (11.5-15.5) % Neutrophils # (1.3-7.7) k/uL Lymphocytes # (1.0-4.8) k/uL ABG pH (7.35-7.45) ABG pCO2 (35-45) mmHg ABG pO2 (83-108) mmHg ABG HCO3 (21-25) mmol/L ABG Total CO2 (19-24) mmol/L Sodium (137-145) mmol/L Potassium (3.5-5.1) mmol/L Carbon Dioxide (22-30) mmol/L BUN (9-20) mg/dL Creatinine (0.66-1.25) mg/dL Glucose (74-99) mg/dL POC Glucose (mg/dL) 116 H 121 H 118 H (75-99) mg/dL Phosphorus (2.5-4.5) mg/dL Magnesium (1.6-2.3) mg/dL 08/16/20 08/16/20 08/16/20 Range/Units 18:01 18:59 20:25 WBC (3.8-10.6) k/uL RBC (4.30-5.90) m/uL Hgb (13.0-17.5) gm/dL Hct (39.0-53.0) % RDW (11.5-15.5) % Neutrophils # (1.3-7.7) k/uL Lymphocytes # (1.0-4.8) k/uL ABG pH (7.35-7.45) ABG pCO2 (35-45) mmHg ABG pO2 (83-108) mmHg ABG HCO3 (21-25) mmol/L ABG Total CO2 (19-24) mmol/L Sodium (137-145) mmol/L Potassium (3.5-5.1) mmol/L Carbon Dioxide (22-30) mmol/L BUN (9-20) mg/dL Creatinine (0.66-1.25) mg/dL Glucose (74-99) mg/dL POC Glucose (mg/dL) 114 H 115 H 135 H (75-99) mg/dL Phosphorus (2.5-4.5) mg/dL Magnesium (1.6-2.3) mg/dL 08/16/20 08/16/20 08/16/20 Range/Units 21:09 21:53 22:48 WBC (3.8-10.6) k/uL RBC (4.30-5.90) m/uL Hgb (13.0-17.5) gm/dL Hct (39.0-53.0) % RDW (11.5-15.5) % Neutrophils # (1.3-7.7) k/uL Lymphocytes # (1.0-4.8) k/uL ABG pH (7.35-7.45) ABG pCO2 (35-45) mmHg ABG pO2 (83-108) mmHg ABG HCO3 (21-25) mmol/L ABG Total CO2 (19-24) mmol/L Sodium (137-145) mmol/L Potassium (3.5-5.1) mmol/L Carbon Dioxide (22-30) mmol/L BUN (9-20) mg/dL Creatinine (0.66-1.25) mg/dL Glucose (74-99) mg/dL POC Glucose (mg/dL) 130 H 135 H 129 H (75-99) mg/dL Phosphorus (2.5-4.5) mg/dL Magnesium (1.6-2.3) mg/dL 08/17/20 08/17/20 08/17/20 Range/Units 00:07 00:48 01:51 WBC (3.8-10.6) k/uL RBC (4.30-5.90) m/uL Hgb (13.0-17.5) gm/dL Hct (39.0-53.0) % RDW (11.5-15.5) % Neutrophils # (1.3-7.7) k/uL Lymphocytes # (1.0-4.8) k/uL ABG pH 7.34 L (7.35-7.45) ABG pCO2 64 H (35-45) mmHg ABG pO2 77 L (83-108) mmHg ABG HCO3 35 H (21-25) mmol/L ABG Total CO2 37 H (19-24) mmol/L Sodium (137-145) mmol/L Potassium (3.5-5.1) mmol/L Carbon Dioxide (22-30) mmol/L BUN (9-20) mg/dL Creatinine (0.66-1.25) mg/dL Glucose (74-99) mg/dL POC Glucose (mg/dL) 107 H 150 H (75-99) mg/dL Phosphorus (2.5-4.5) mg/dL Magnesium (1.6-2.3) mg/dL 08/17/20 08/17/20 08/17/20 Range/Units 02:59 04:03 04:46 WBC (3.8-10.6) k/uL RBC (4.30-5.90) m/uL Hgb (13.0-17.5) gm/dL Hct (39.0-53.0) % RDW (11.5-15.5) % Neutrophils # (1.3-7.7) k/uL Lymphocytes # (1.0-4.8) k/uL ABG pH (7.35-7.45) ABG pCO2 (35-45) mmHg ABG pO2 (83-108) mmHg ABG HCO3 (21-25) mmol/L ABG Total CO2 (19-24) mmol/L Sodium 146 H (137-145) mmol/L Potassium 5.4 H (3.5-5.1) mmol/L Carbon Dioxide 36 H (22-30) mmol/L BUN 78 H (9-20) mg/dL Creatinine 1.99 H (0.66-1.25) mg/dL Glucose 147 H (74-99) mg/dL POC Glucose (mg/dL) 141 H 111 H (75-99) mg/dL Phosphorus 5.2 H (2.5-4.5) mg/dL Magnesium 2.4 H (1.6-2.3) mg/dL 08/17/20 08/17/20 08/17/20 Range/Units 04:46 05:40 07:16 WBC 11.9 H (3.8-10.6) k/uL RBC 3.34 L (4.30-5.90) m/uL Hgb 10.3 L (13.0-17.5) gm/dL Hct 32.6 L (39.0-53.0) % RDW 16.3 H (11.5-15.5) % Neutrophils # 9.5 H (1.3-7.7) k/uL Lymphocytes # 0.9 L (1.0-4.8) k/uL ABG pH (7.35-7.45) ABG pCO2 (35-45) mmHg ABG pO2 (83-108) mmHg ABG HCO3 (21-25) mmol/L ABG Total CO2 (19-24) mmol/L Sodium (137-145) mmol/L Potassium (3.5-5.1) mmol/L Carbon Dioxide (22-30) mmol/L BUN (9-20) mg/dL Creatinine (0.66-1.25) mg/dL Glucose (74-99) mg/dL POC Glucose (mg/dL) 141 H 114 H (75-99) mg/dL Phosphorus (2.5-4.5) mg/dL Magnesium (1.6-2.3) mg/dL 08/17/20 Range/Units 08:45 WBC (3.8-10.6) k/uL RBC (4.30-5.90) m/uL Hgb (13.0-17.5) gm/dL Hct (39.0-53.0) % RDW (11.5-15.5) % Neutrophils # (1.3-7.7) k/uL Lymphocytes # (1.0-4.8) k/uL ABG pH (7.35-7.45) ABG pCO2 (35-45) mmHg ABG pO2 (83-108) mmHg ABG HCO3 (21-25) mmol/L ABG Total CO2 (19-24) mmol/L Sodium (137-145) mmol/L Potassium (3.5-5.1) mmol/L Carbon Dioxide (22-30) mmol/L BUN (9-20) mg/dL Creatinine (0.66-1.25) mg/dL Glucose (74-99) mg/dL POC Glucose (mg/dL) 110 H (75-99) mg/dL Phosphorus (2.5-4.5) mg/dL Magnesium (1.6-2.3) mg/dL Microbiology - Last 24 Hours (Table) 08/15/20 21:11 Blood Culture - Preliminary Blood No Growth after 24 hours Assessment and Plan Assessment: 1 Symptomatic coronary artery disease, status post two-vessel coronary artery bypass grafting with PABLO to the LAD, SVG to the PDA on 07/18/2020 2 Postoperative atrial fibrillation with rapid ventricular response, improved. Remains on amiodarone 3 History of coronary artery disease with previous stent placement 4 Intraperitoneal hemorrhage status post exploratory laparotomy, washout of peritoneal cavity and ileostomy on 08/02/2020. 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 Meyers Chest x-ray and labs reviewed Currently on BiPAP 15/5 and 35% FiO2 Needs increased encouragement regarding the use the incentive spirometer, cough and deep breathing exercises Continue bronchodilators Antibiotics per ID services Increase his activity as tolerated with physical therapy We will continue to follow and make further recommendations based on his clinic al status I, the cosigning physician, performed a history & physical examination of the patient. Lungs sounds with basilar crackles. Maintaining good O2 saturations in the 90s on BiPAP 15/5 and 35% FiO2. I discussed the assessment and plan of care with my nurse practitioner, Olga Marin. I attest to the above note as dictated by her.
--- NOTE | 2020-08-17 10:39 | P.PN ---
Subjective Progress Note Date: 08/17/20 Principal diagnosis: Ischemic bowel Patient on BiPAP currently. Denies pain. White blood cell count 11.9. Ostomy functioning. Tolerating tube feeds. Objective - Vital Signs Vital signs: Vital Signs Temp 98.2 F 08/17/20 08:00 Pulse 79 08/17/20 09:14 Resp 40 H 08/17/20 08:00 BP 163/134 08/17/20 08:00 Pulse Ox 99 08/17/20 08:00 Intake & Output 08/16/20 08/17/20 08/17/20 18:59 06:59 18:59 Intake Total 980.316 718.234 470 Output Total 1300 925 280 Balance -319.684 -206.766 190 Weight 87.7 kg 87.1 kg 87.1 kg Intake: IV 340 190 210 Anidulafungin 100 mg In 100 100 Sodium Chloride 0.9% 100 ml @ 84 mls/hr IVPB DAILY [facility] Rx#:[id number] Piperacillin-Tazobactam 3 100 100 .375 gm In Sodium Chloride 0.9% 100 ml @ 25 mls/hr IVPB Q8HR [facility] Rx# :[id number] Sodium Chloride 0.9% 1, 100 90 10 000 ml @ 10 mls/hr IV . Q24H [facility] Rx#:[id number] TPN 140 Intake, IV Titration 160.316 18.234 50 Amount DAPTOmycin 650 mg In 50 Sodium Chloride 0.9% 50 ml @ 100 mls/hr IVPB Q24H [facility] Rx#:[id number] Dextrose 5% in Water 1, 80 000 ml @ 20 mls/hr IV . Q24H [facility] Rx#:[id number] Insulin Regular 100 unit 30.316 18.234 0 In Sodium Chloride 0.9% 100 ml @ Per Protocol IV .Q0M [facility] Rx#:[id number] Sodium Chloride 0.9% 1, 50 000 ml @ 50 mls/hr IV . Q20H [facility] Rx#:[id number] Tube Feeding 400 420 180 Other 80 90 30 Output: Gastric Drainage 850 180 Urine 450 725 100 Stool 200 Other: Voiding Method Indwelling Catheter Indwelling Catheter ABP, PAP, CO, CI - Last Documented Arterial Blood Pressure 131/50 Pulmonary Artery Pressure 33/14 Cardiac Output 6.7 Cardiac Index 3.1 - Exam Abdomen: Soft, nondistended, minimal tenderness, wound VAC in place, ostomy functioning - Labs CBC & Chem 7: 08/17/20 04:46 08/17/20 04:46 Labs: Abnormal Lab Results - Last 24 Hours (Table) 08/16/20 08/16/20 08/16/20 Range/Units 10:40 11:51 13:00 WBC (3.8-10.6) k/uL RBC (4.30-5.90) m/uL Hgb (13.0-17.5) gm/dL Hct (39.0-53.0) % RDW (11.5-15.5) % Neutrophils # (1.3-7.7) k/uL Lymphocytes # (1.0-4.8) k/uL ABG pH (7.35-7.45) ABG pCO2 (35-45) mmHg ABG pO2 (83-108) mmHg ABG HCO3 (21-25) mmol/L ABG Total CO2 (19-24) mmol/L Sodium (137-145) mmol/L Potassium (3.5-5.1) mmol/L Carbon Dioxide (22-30) mmol/L BUN (9-20) mg/dL Creatinine (0.66-1.25) mg/dL Glucose (74-99) mg/dL POC Glucose (mg/dL) 105 H 101 H 134 H (75-99) mg/dL Phosphorus (2.5-4.5) mg/dL Magnesium (1.6-2.3) mg/dL 08/16/20 08/16/20 08/16/20 Range/Units 14:08 15:19 16:25 WBC (3.8-10.6) k/uL RBC (4.30-5.90) m/uL Hgb (13.0-17.5) gm/dL Hct (39.0-53.0) % RDW (11.5-15.5) % Neutrophils # (1.3-7.7) k/uL Lymphocytes # (1.0-4.8) k/uL ABG pH (7.35-7.45) ABG pCO2 (35-45) mmHg ABG pO2 (83-108) mmHg ABG HCO3 (21-25) mmol/L ABG Total CO2 (19-24) mmol/L Sodium (137-145) mmol/L Potassium (3.5-5.1) mmol/L Carbon Dioxide (22-30) mmol/L BUN (9-20) mg/dL Creatinine (0.66-1.25) mg/dL Glucose (74-99) mg/dL POC Glucose (mg/dL) 116 H 121 H 118 H (75-99) mg/dL Phosphorus (2.5-4.5) mg/dL Magnesium (1.6-2.3) mg/dL 08/16/20 08/16/20 08/16/20 Range/Units 18:01 18:59 20:25 WBC (3.8-10.6) k/uL RBC (4.30-5.90) m/uL Hgb (13.0-17.5) gm/dL Hct (39.0-53.0) % RDW (11.5-15.5) % Neutrophils # (1.3-7.7) k/uL Lymphocytes # (1.0-4.8) k/uL ABG pH (7.35-7.45) ABG pCO2 (35-45) mmHg ABG pO2 (83-108) mmHg ABG HCO3 (21-25) mmol/L ABG Total CO2 (19-24) mmol/L Sodium (137-145) mmol/L Potassium (3.5-5.1) mmol/L Carbon Dioxide (22-30) mmol/L BUN (9-20) mg/dL Creatinine (0.66-1.25) mg/dL Glucose (74-99) mg/dL POC Glucose (mg/dL) 114 H 115 H 135 H (75-99) mg/dL Phosphorus (2.5-4.5) mg/dL Magnesium (1.6-2.3) mg/dL 08/16/20 08/16/20 08/16/20 Range/Units 21:09 21:53 22:48 WBC (3.8-10.6) k/uL RBC (4.30-5.90) m/uL Hgb (13.0-17.5) gm/dL Hct (39.0-53.0) % RDW (11.5-15.5) % Neutrophils # (1.3-7.7) k/uL Lymphocytes # (1.0-4.8) k/uL ABG pH (7.35-7.45) ABG pCO2 (35-45) mmHg ABG pO2 (83-108) mmHg ABG HCO3 (21-25) mmol/L ABG Total CO2 (19-24) mmol/L Sodium (137-145) mmol/L Potassium (3.5-5.1) mmol/L Carbon Dioxide (22-30) mmol/L BUN (9-20) mg/dL Creatinine (0.66-1.25) mg/dL Glucose (74-99) mg/dL POC Glucose (mg/dL) 130 H 135 H 129 H (75-99) mg/dL Phosphorus (2.5-4.5) mg/dL Magnesium (1.6-2.3) mg/dL 08/17/20 08/17/20 08/17/20 Range/Units 00:07 00:48 01:51 WBC (3.8-10.6) k/uL RBC (4.30-5.90) m/uL Hgb (13.0-17.5) gm/dL Hct (39.0-53.0) % RDW (11.5-15.5) % Neutrophils # (1.3-7.7) k/uL Lymphocytes # (1.0-4.8) k/uL ABG pH 7.34 L (7.35-7.45) ABG pCO2 64 H (35-45) mmHg ABG pO2 77 L (83-108) mmHg ABG HCO3 35 H (21-25) mmol/L ABG Total CO2 37 H (19-24) mmol/L Sodium (137-145) mmol/L Potassium (3.5-5.1) mmol/L Carbon Dioxide (22-30) mmol/L BUN (9-20) mg/dL Creatinine (0.66-1.25) mg/dL Glucose (74-99) mg/dL POC Glucose (mg/dL) 107 H 150 H (75-99) mg/dL Phosphorus (2.5-4.5) mg/dL Magnesium (1.6-2.3) mg/dL 08/17/20 08/17/20 08/17/20 Range/Units 02:59 04:03 04:46 WBC (3.8-10.6) k/uL RBC (4.30-5.90) m/uL Hgb (13.0-17.5) gm/dL Hct (39.0-53.0) % RDW (11.5-15.5) % Neutrophils # (1.3-7.7) k/uL Lymphocytes # (1.0-4.8) k/uL ABG pH (7.35-7.45) ABG pCO2 (35-45) mmHg ABG pO2 (83-108) mmHg ABG HCO3 (21-25) mmol/L ABG Total CO2 (19-24) mmol/L Sodium 146 H (137-145) mmol/L Potassium 5.4 H (3.5-5.1) mmol/L Carbon Dioxide 36 H (22-30) mmol/L BUN 78 H (9-20) mg/dL Creatinine 1.99 H (0.66-1.25) mg/dL Glucose 147 H (74-99) mg/dL POC Glucose (mg/dL) 141 H 111 H (75-99) mg/dL Phosphorus 5.2 H (2.5-4.5) mg/dL Magnesium 2.4 H (1.6-2.3) mg/dL 08/17/20 08/17/20 08/17/20 Range/Units 04:46 05:40 07:16 WBC 11.9 H (3.8-10.6) k/uL RBC 3.34 L (4.30-5.90) m/uL Hgb 10.3 L (13.0-17.5) gm/dL Hct 32.6 L (39.0-53.0) % RDW 16.3 H (11.5-15.5) % Neutrophils # 9.5 H (1.3-7.7) k/uL Lymphocytes # 0.9 L (1.0-4.8) k/uL ABG pH (7.35-7.45) ABG pCO2 (35-45) mmHg ABG pO2 (83-108) mmHg ABG HCO3 (21-25) mmol/L ABG Total CO2 (19-24) mmol/L Sodium (137-145) mmol/L Potassium (3.5-5.1) mmol/L Carbon Dioxide (22-30) mmol/L BUN (9-20) mg/dL Creatinine (0.66-1.25) mg/dL Glucose (74-99) mg/dL POC Glucose (mg/dL) 141 H 114 H (75-99) mg/dL Phosphorus (2.5-4.5) mg/dL Magnesium (1.6-2.3) mg/dL 08/17/20 Range/Units 08:45 WBC (3.8-10.6) k/uL RBC (4.30-5.90) m/uL Hgb (13.0-17.5) gm/dL Hct (39.0-53.0) % RDW (11.5-15.5) % Neutrophils # (1.3-7.7) k/uL Lymphocytes # (1.0-4.8) k/uL ABG pH (7.35-7.45) ABG pCO2 (35-45) mmHg ABG pO2 (83-108) mmHg ABG HCO3 (21-25) mmol/L ABG Total CO2 (19-24) mmol/L Sodium (137-145) mmol/L Potassium (3.5-5.1) mmol/L Carbon Dioxide (22-30) mmol/L BUN (9-20) mg/dL Creatinine (0.66-1.25) mg/dL Glucose (74-99) mg/dL POC Glucose (mg/dL) 110 H (75-99) mg/dL Phosphorus (2.5-4.5) mg/dL Magnesium (1.6-2.3) mg/dL Microbiology - Last 24 Hours (Table) 08/15/20 21:11 Blood Culture - Preliminary Blood No Growth after 24 hours Assessment and Plan (1) Ischemic colitis, enteritis, or enterocolitis Narrative/Plan: Patient without significant changes. Continue tube feeds as tolerated. Continue optimization of pulmonary status. Follow-up Current Visit: Yes Status: Acute Code(s): K55.9 - VASCULAR DISORDER OF INTESTINE, UNSPECIFIED SNOMED Code(s): 23153444
[2020-08-17 11:20] LABS: Glucose,Whole Blood 124 mg/dL (75-99)
[2020-08-17] MEDS: INSULIN ASPART (NovoLOG) 100 UNIT/ML VIAL SQ SCH ×4 (11:30→23:43)
[2020-08-17 11:33] LABS: ABG Base Excess 8.4 mmol/L; ABG HCO3 34 mmol/L (21-25); ABG PCO2 63 mmHg (35-45); ABG PH 7.34 (7.35-7.45); ABG TCO2 36 mmol/L (19-24); Allen Test Performed? Yes
[2020-08-17 11:37] LABS: ABG PO2 55 mmHg (83-108)
[2020-08-17] MEDS ORDERED: propofoL 100 ML IV ONE (11:40)
--- NOTE | 2020-08-17 11:44 | IR ---
PICC LINE PLACEMENT: HISTORY: Infection requiring long-term antibiotic therapy PROCEDURE: Ultrasound guidance of PICC line placement. PHOTOENGRAVER APPRENTICE: Dr. Eldridge. COMPLICATIONS: None ANESTHESIA: 1. 1% Lidocaine locally. FINDINGS/TECHNIQUE: The procedure was explained to the patient. The risks, complications, benefits and alternatives were discussed and any questions were answered. Informed consent was obtained. The patient was placed supine on the fluoroscopic table and prepped and draped in the usual sterile fas ion. Utilizing a 21 gauge needle and sonographic guidance, access in the left basilic vein was achi eved and there is placement of a 0.018 guidewire. The vein is patent. A 5-F. sheath was placed over the guidewire. The guidewire and dilator were removed and a 5-F. Double lumen PICC line was placed through the sheath with the chest x-ray confirming the tip at the level of the SVC. The sheath was r emoved, the catheter was flushed and sutured into position. The patient was stable throughout the pr ocedure and remained stable upon discharge from the Department of Radiology. The vein puncture was patent under ultrasound. A moulton scale image was obtained to document patency of the vein punctured. All elements of the maximal barrier technique were utilized. IMPRESSION: 1. Successful PICC line placement under ultrasound performed bedside within the ICU.
--- NOTE | 2020-08-17 11:51 | P.PN ---
Subjective Progress Note Date: 08/17/20 Principal diagnosis: CABG Patient currently on BiPAP. He is awake and able to answer questions. Continues to be on tube feeding through NG tube. Currently back and forth between NSR in the 80-90s and atrial fibrillation with rate 120-140s. Has been having low grade fever. Patient continues to have liquid light brown stool through ileostomy. Denied new complaints. Objective - Vital Signs Vital signs: Vital Signs Temp 98.2 F 08/17/20 08:00 Pulse 86 08/17/20 10:00 Resp 44 H 08/17/20 10:00 BP 96/78 08/17/20 10:00 Pulse Ox 99 08/17/20 10:00 Intake & Output 08/16/20 08/17/20 08/17/20 18:59 06:59 18:59 Intake Total 980.316 718.234 510 Output Total 1300 925 360 Balance -319.684 -206.766 150 Weight 87.7 kg 87.1 kg 87.1 kg Intake: IV 340 190 210 Anidulafungin 100 mg In 100 100 Sodium Chloride 0.9% 100 ml @ 84 mls/hr IVPB DAILY [facility] Rx#:[id number] Piperacillin-Tazobactam 3 100 100 .375 gm In Sodium Chloride 0.9% 100 ml @ 25 mls/hr IVPB Q8HR [facility] Rx# :[id number] Sodium Chloride 0.9% 1, 100 90 10 000 ml @ 10 mls/hr IV . Q24H [facility] Rx#:[id number] TPN 140 Intake, IV Titration 160.316 18.234 90 Amount DAPTOmycin 650 mg In 50 Sodium Chloride 0.9% 50 ml @ 100 mls/hr IVPB Q24H [facility] Rx#:[id number] Dextrose 5% in Water 1, 80 000 ml @ 20 mls/hr IV . Q24H [facility] Rx#:[id number] Insulin Regular 100 unit 30.316 18.234 0 In Sodium Chloride 0.9% 100 ml @ Per Protocol IV .Q0M [facility] Rx#:[id number] Sodium Chloride 0.9% 1, 90 000 ml @ 20 mls/hr IV . Q24H [facility] Rx#:[id number] Tube Feeding 400 420 180 Other 80 90 30 Output: Gastric Drainage 850 180 Urine 450 725 180 Stool 200 Other: Voiding Method Indwelling Catheter Indwelling Catheter ABP, PAP, CO, CI - Last Documented Arterial Blood Pressure 131/50 Pulmonary Artery Pressure 33/14 Cardiac Output 6.7 Cardiac Index 3.1 - Exam Gen: awake, alert. Currently on BiPAP HEENT: normocephalic, atraumatic, dry mucous membranes, + central line. Resp: adequate lung expansion, symmetric breathing, no accessory muscle use CVS: good distal perfusion x 4, RRR, no murmurs, clicks, gallops GI: soft, NTTP, ND. Ileostomy bag and wound VAC present. : no SPT, no CVAT, malagon catheter is present MSK: No edema, no clubbing Neuro: Generally weak, non-focal, no sensory deficits, appropriate tone - Labs CBC & Chem 7: 08/17/20 04:46 08/17/20 04:46 Labs: Abnormal Lab Results - Last 24 Hours (Table) 08/16/20 08/16/20 08/16/20 Range/Units 11:51 13:00 14:08 WBC (3.8-10.6) k/uL RBC (4.30-5.90) m/uL Hgb (13.0-17.5) gm/dL Hct (39.0-53.0) % RDW (11.5-15.5) % Neutrophils # (1.3-7.7) k/uL Lymphocytes # (1.0-4.8) k/uL ABG pH (7.35-7.45) ABG pCO2 (35-45) mmHg ABG pO2 (83-108) mmHg ABG HCO3 (21-25) mmol/L ABG Total CO2 (19-24) mmol/L ABG O2 Saturation (94-97) % Sodium (137-145) mmol/L Potassium (3.5-5.1) mmol/L Carbon Dioxide (22-30) mmol/L BUN (9-20) mg/dL Creatinine (0.66-1.25) mg/dL Glucose (74-99) mg/dL POC Glucose (mg/dL) 101 H 134 H 116 H (75-99) mg/dL Phosphorus (2.5-4.5) mg/dL Magnesium (1.6-2.3) mg/dL 08/16/20 08/16/20 08/16/20 Range/Units 15:19 16:25 18:01 WBC (3.8-10.6) k/uL RBC (4.30-5.90) m/uL Hgb (13.0-17.5) gm/dL Hct (39.0-53.0) % RDW (11.5-15.5) % Neutrophils # (1.3-7.7) k/uL Lymphocytes # (1.0-4.8) k/uL ABG pH (7.35-7.45) ABG pCO2 (35-45) mmHg ABG pO2 (83-108) mmHg ABG HCO3 (21-25) mmol/L ABG Total CO2 (19-24) mmol/L ABG O2 Saturation (94-97) % Sodium (137-145) mmol/L Potassium (3.5-5.1) mmol/L Carbon Dioxide (22-30) mmol/L BUN (9-20) mg/dL Creatinine (0.66-1.25) mg/dL Glucose (74-99) mg/dL POC Glucose (mg/dL) 121 H 118 H 114 H (75-99) mg/dL Phosphorus (2.5-4.5) mg/dL Magnesium (1.6-2.3) mg/dL 08/16/20 08/16/20 08/16/20 Range/Units 18:59 20:25 21:09 WBC (3.8-10.6) k/uL RBC (4.30-5.90) m/uL Hgb (13.0-17.5) gm/dL Hct (39.0-53.0) % RDW (11.5-15.5) % Neutrophils # (1.3-7.7) k/uL Lymphocytes # (1.0-4.8) k/uL ABG pH (7.35-7.45) ABG pCO2 (35-45) mmHg ABG pO2 (83-108) mmHg ABG HCO3 (21-25) mmol/L ABG Total CO2 (19-24) mmol/L ABG O2 Saturation (94-97) % Sodium (137-145) mmol/L Potassium (3.5-5.1) mmol/L Carbon Dioxide (22-30) mmol/L BUN (9-20) mg/dL Creatinine (0.66-1.25) mg/dL Glucose (74-99) mg/dL POC Glucose (mg/dL) 115 H 135 H 130 H (75-99) mg/dL Phosphorus (2.5-4.5) mg/dL Magnesium (1.6-2.3) mg/dL 08/16/20 08/16/20 08/17/20 Range/Units 21:53 22:48 00:07 WBC (3.8-10.6) k/uL RBC (4.30-5.90) m/uL Hgb (13.0-17.5) gm/dL Hct (39.0-53.0) % RDW (11.5-15.5) % Neutrophils # (1.3-7.7) k/uL Lymphocytes # (1.0-4.8) k/uL ABG pH 7.34 L (7.35-7.45) ABG pCO2 64 H (35-45) mmHg ABG pO2 77 L (83-108) mmHg ABG HCO3 35 H (21-25) mmol/L ABG Total CO2 37 H (19-24) mmol/L ABG O2 Saturation (94-97) % Sodium (137-145) mmol/L Potassium (3.5-5.1) mmol/L Carbon Dioxide (22-30) mmol/L BUN (9-20) mg/dL Creatinine (0.66-1.25) mg/dL Glucose (74-99) mg/dL POC Glucose (mg/dL) 135 H 129 H (75-99) mg/dL Phosphorus (2.5-4.5) mg/dL Magnesium (1.6-2.3) mg/dL 08/17/20 08/17/20 08/17/20 Range/Units 00:48 01:51 02:59 WBC (3.8-10.6) k/uL RBC (4.30-5.90) m/uL Hgb (13.0-17.5) gm/dL Hct (39.0-53.0) % RDW (11.5-15.5) % Neutrophils # (1.3-7.7) k/uL Lymphocytes # (1.0-4.8) k/uL ABG pH (7.35-7.45) ABG pCO2 (35-45) mmHg ABG pO2 (83-108) mmHg ABG HCO3 (21-25) mmol/L ABG Total CO2 (19-24) mmol/L ABG O2 Saturation (94-97) % Sodium (137-145) mmol/L Potassium (3.5-5.1) mmol/L Carbon Dioxide (22-30) mmol/L BUN (9-20) mg/dL Creatinine (0.66-1.25) mg/dL Glucose (74-99) mg/dL POC Glucose (mg/dL) 107 H 150 H 141 H (75-99) mg/dL Phosphorus (2.5-4.5) mg/dL Magnesium (1.6-2.3) mg/dL 08/17/20 08/17/20 08/17/20 Range/Units 04:03 04:46 04:46 WBC 11.9 H (3.8-10.6) k/uL RBC 3.34 L (4.30-5.90) m/uL Hgb 10.3 L (13.0-17.5) gm/dL Hct 32.6 L (39.0-53.0) % RDW 16.3 H (11.5-15.5) % Neutrophils # 9.5 H (1.3-7.7) k/uL Lymphocytes # 0.9 L (1.0-4.8) k/uL ABG pH (7.35-7.45) ABG pCO2 (35-45) mmHg ABG pO2 (83-108) mmHg ABG HCO3 (21-25) mmol/L ABG Total CO2 (19-24) mmol/L ABG O2 Saturation (94-97) % Sodium 146 H (137-145) mmol/L Potassium 5.4 H (3.5-5.1) mmol/L Carbon Dioxide 36 H (22-30) mmol/L BUN 78 H (9-20) mg/dL Creatinine 1.99 H (0.66-1.25) mg/dL Glucose 147 H (74-99) mg/dL POC Glucose (mg/dL) 111 H (75-99) mg/dL Phosphorus 5.2 H (2.5-4.5) mg/dL Magnesium 2.4 H (1.6-2.3) mg/dL 08/17/20 08/17/20 08/17/20 Range/Units 05:40 07:16 08:45 WBC (3.8-10.6) k/uL RBC (4.30-5.90) m/uL Hgb (13.0-17.5) gm/dL Hct (39.0-53.0) % RDW (11.5-15.5) % Neutrophils # (1.3-7.7) k/uL Lymphocytes # (1.0-4.8) k/uL ABG pH (7.35-7.45) ABG pCO2 (35-45) mmHg ABG pO2 (83-108) mmHg ABG HCO3 (21-25) mmol/L ABG Total CO2 (19-24) mmol/L ABG O2 Saturation (94-97) % Sodium (137-145) mmol/L Potassium (3.5-5.1) mmol/L Carbon Dioxide (22-30) mmol/L BUN (9-20) mg/dL Creatinine (0.66-1.25) mg/dL Glucose (74-99) mg/dL POC Glucose (mg/dL) 141 H 114 H 110 H (75-99) mg/dL Phosphorus (2.5-4.5) mg/dL Magnesium (1.6-2.3) mg/dL 08/17/20 08/17/20 Range/Units 11:19 11:25 WBC (3.8-10.6) k/uL RBC (4.30-5.90) m/uL Hgb (13.0-17.5) gm/dL Hct (39.0-53.0) % RDW (11.5-15.5) % Neutrophils # (1.3-7.7) k/uL Lymphocytes # (1.0-4.8) k/uL ABG pH 7.34 L (7.35-7.45) ABG pCO2 63 H (35-45) mmHg ABG pO2 55 L* (83-108) mmHg ABG HCO3 34 H (21-25) mmol/L ABG Total CO2 36 H (19-24) mmol/L ABG O2 Saturation 86.0 L (94-97) % Sodium (137-145) mmol/L Potassium (3.5-5.1) mmol/L Carbon Dioxide (22-30) mmol/L BUN (9-20) mg/dL Creatinine (0.66-1.25) mg/dL Glucose (74-99) mg/dL POC Glucose (mg/dL) 124 H (75-99) mg/dL Phosphorus (2.5-4.5) mg/dL Magnesium (1.6-2.3) mg/dL Microbiology - Last 24 Hours (Table) 08/15/20 21:11 Blood Culture - Preliminary Blood No Growth after 24 hours Assessment and Plan Plan: CAD s/p CABG with 2v bypass, PABLO to LAD, and SVG to posterior descending coronary artery POD #[address] surgery Pleural effusion Had left sided thoracentesis 12 with removal of 1400 mL bloody drainage. CXR currently without significant pleural effusions. DM 2 - hold metformin - currently on insulin gtt - Blood sugars currently controlled, follow blood sugars closely - A1C from 06/21/2020 5.2, anticipate discharge home back on metformin which may be able to come off in the near future in the outpatient setting. Small Bowel Ischemia, Pneumatosis, s/p small bowel resection - surgery following as well as ID - Sputum culture from 08/03/20 demonstrating aurora albicans, blood culture negative, CVC catheter tip removed 08/03/20 growing staph epidermis. - POD #24 s/p resection/anastamosis, POD #15 anastamosis take down and diverting ileostomy - on daptomycin/eraxis, zosyn added by ID on 1230 due to low grade fever. - Alvimopan discontinued - On tube feeding, surgery planning PEG next week Dehydration/hypernatremia Patient looks dry currently D/w Bertha Marin, will give free water boluses 200cc q6hrs A-fib with RVR Metoprolol increased by cardio from 50mg BID to 75mg BID due to worsening RVR On amiodarone 200mg BID Off cardizem gtt Eliquis held due to bleeding, now on heparin q8h for DVT PPx; can consider restarting eliquis now that hgb has been stable CONNOR on CKD stage III, resolved Baseline cr 1.4-1.5, currently cr close to baseline Likely cardiorenal syndrome, patient received contrast earlier in the admission. On NS 50 cc/hr Recheck in am Avoid nephrotoxic meds Nephrology is following Acute blood loss anemia and thrombocytopenia, anticipated outcome of surgery - follow CBC - transfuse as indicated COPD with acute exacerbation, resolved - steroid course completed - DuoNerobyn - on spiriva and advair at home Coronary artery disease -Status post coronary artery bypass grafting -Cardiothoracic and cardiology following HTN - meds per CT surgery - follow BP Hypothyroidism status post partial thyroidectomy - synthroid Morbid obesity with BMI 30.5 -Outpatient structured weight loss Chronic: ADDY Jacobs's Thank you for allowing us to participate in the care of this pleasant patient. Do not hesitate to contact us with questions. Someone can be reached from the [facility] hospitalist group all hours of the day at [phone] or via [employer].
[2020-08-17] MEDS ORDERED: BENZOCAINE SPRAY 1 CAN MUCOUS MEM PRN (12:01)
[2020-08-17] MEDS ORDERED: ALBUMIN HUMAN 5% 250 ML IVPB ONE (12:12)
[2020-08-17] MEDS ORDERED: NOREPINEPHRIN 4 MG-0.9% NS PMX 4 MG/250 ML ML IV ONE (12:22)
[2020-08-17 12:30] LABS: ABG Base Excess 8.7 mmol/L; ABG HCO3 34 mmol/L (21-25); ABG Oxygen Saturation 98.6 % (94-97); ABG PCO2 63 mmHg (35-45); ABG PH 7.35 (7.35-7.45); ABG PO2 102 mmHg (83-108); ABG TCO2 36 mmol/L (19-24); Allen Test Performed? Yes
[2020-08-17] MEDS: ALBUMIN HUMAN 5% 500 ML in EMPTY BAG 1 BAG IVPB STA ×2 (12:49→14:42)
--- NOTE | 2020-08-17 12:49 | XR ---
EXAMINATION TYPE: XR chest 1V portable DATE OF EXAM: 08/17/2020 COMPARISON: 08/17/2020 INDICATION: Intubation TECHNIQUE: Single frontal view of the chest is obtained. FINDINGS: The heart size is normal. The pulmonary vasculature is normal. Bibasilar infiltrates are present. This is increasing on the right. Endotracheal tube tip is above the mickey. Nasogastric tube transverses the [id number]. PICC line enters on the right with the tip in the superior vena cava region. IMPRESSION: 1. Increasing right lower lobe infiltrate. Left basilar infiltrate remains present. 2. Lines and catheters discussed above.
--- NOTE | 2020-08-17 12:58 | OP ---
OPERATIVE REPORT PROCEDURE: A left radial arterial line insertion. PREOP DIAGNOSIS: Hypotension, hemodynamic monitoring. POSTOP DIAGNOSIS: Hypotension, hemodynamic monitoring. LEFT RADIAL ARTERIAL LINE PLACEMENT: A time-out was completed verifying correct patient, procedure, site, positioning, and implant(s) or special equipment if applicable. Bk's test was performed to ensure adequate perfusion. The patient's left wrist was prepped and draped in sterile fashion. 1% Lidocaine was used to anesthetize the area. An 18G Arrow arterial line was introduced into the radial artery. The catheter was threaded over the guide wire and the needle was removed with appropriate pulsatile blood return. Blood loss was minimal. The catheter was then sutured in place to the skin and a sterile dressing applied. Perfusion to the extremity distal to the point of catheter insertion was checked and found to be adequate. The patient tolerated the procedure well and there were no complications. MMODL / IJN: [id number] /
[2020-08-17] MEDS ORDERED: AMIODARONE 300 MG in DEXTROSE 5% IN WATER 250 ML IV SCH ×2 (13:30)
[2020-08-17] MEDS: NOREPINEPHRINE 4 MG in SODIUM CHLORIDE 0.9% 250 ML IV SCH (13:30)
[2020-08-17] MEDS ORDERED: HEPARIN SODIUM,PORCINE 5,000 UNIT/ML 1 ML VIAL IV PRN (14:18)
[2020-08-17] MEDS ORDERED: HEPARIN SODIUM,PORCINE 5,000 UNIT/ML 1 ML VIAL IV ONE (14:18)
--- NOTE | 2020-08-17 14:19 | PN ---
PROGRESS NOTE The patient is seen for followup for acute kidney injury on top of chronic kidney disease. The patient is currently sitting up in bed. He is maintained on BiPAP. Blood pressure was 96/78, heart rate 86 per minute, patient is afebrile. Urine output over 24 hours at about 2.2 L. So far, however, over 24 hours from yesterday it was 5.8 L. The patient had a lot of output from his ostomy. Examination of the heart S1, S2. Examination of lungs, decreased breath sounds at bases. Abdomen is soft, nontender. Ostomy intact. Examination of lower extremities shows no significant edema. Chronic skin changes. Legs are wrapped. LABS: Show sodium 146, potassium 5.4, chloride 105, CO2 is 36, BUN 78, serum creatinine 1.9, magnesium 2.4, phosphorus 5.2, hemoglobin 10.3 g/dL. ASSESSMENT: 1. Acute kidney injury, prerenal, renal function slightly worse, most likely secondary to hypovolemia. Lasix is on hold. The patient will be started on free water down the feeding tube. If renal function continues to deteriorate, I will add IV fluids tomorrow. No nephrotoxic agents on board. 2. Hyperkalemia associated with acute kidney injury. The tube feeds will be changed to Nepro. Repeat labs in a.m. 3. Mild hypernatremia associated with free water deficit. Increase free water down the feeding tube. 4. Status post coronary artery bypass surgery day #30. 5. Atrial fibrillation with RVR with heart rate staying on the higher side. 6. Pleural effusion status post thoracentesis. PLAN: Increase free water down the feeding tube. Change tube feeds to Nepro. Continue antibiotics and repeat labs in a.m. MMODL / IJN: [id number] /
[2020-08-17] MEDS: HEPARIN SOD,PORK IN 0.45% NACL 25,000 UNIT in 0.45% NACL 1 250ML.BAG IV SCH (14:57)
[2020-08-17] MEDS: DEXTROSE 5% IN WATER 1,000 ML IV SCH (14:58)
[2020-08-17 15:11] LABS: Partial Thromboplastin Time 28.6 sec (22.0-30.0); Prothrombin Time 10.5 sec (9.0-12.0)
[2020-08-17 15:58] LABS: Glucose,Whole Blood 125 mg/dL (75-99)
[2020-08-17] MEDS ORDERED: MVI, ADULT NO.4 WITH VIT K 10 ML, TRACE (CONC-1ML/DOSE) 1 ML, SODIUM ACETATE 20 MEQ, PO... IV SCH ×5 (18:00)
[2020-08-17] MEDS ORDERED: MVI, ADULT NO.4 WITH VIT K 10 ML, TRACE (CONC-1ML/DOSE) 1 ML, SODIUM ACETATE 20 MEQ, PO... IV ONE ×5 (18:00)
[2020-08-17 19:58] LABS: Glucose,Whole Blood 137 mg/dL (75-99)
[2020-08-17] MEDS: METOPROLOL TARTRATE 50 MG TAB PO SCH (20:35)
--- NOTE | 2020-08-17 22:01 | PN ---
PROGRESS NOTE DATE OF SERVICE: 08/17/2020 REASON FOR FOLLOWUP: Ischemic bowel and pneumonia. INTERVAL HISTORY: The patient went into respiratory distress and ended up getting intubated. The patient is requiring low-dose pressor support to maintain his blood pressure no significant purulent secretions or vomiting was noted at the time of intubation by the nursing staff. PHYSICAL EXAMINATION: Blood pressure 105/43 pulse of 68, temperature 99. He is 100% on 70% FiO2. General description is an elderly male lying in bed in no distress. RESPIRATORY SYSTEM: Unlabored breathing with decreased breath sounds at the base. No wheeze. HEART: S1, S2. Regular rate and rhythm. ABDOMEN: Soft. No distention. No guarding or rigidity. LABS: Hemoglobin is 10.3, white count .9, BUN of 78, creatinine 1.99. DIAGNOSTIC IMPRESSION AND PLAN: Patient with leukocytosis which is multifactorial in this patient who did have a component of ischemic small bowel, status post resection with line infection, now with worsening respiratory status and possible concern for pneumonia. Sputum cultures were requested. Patient is covered with Zosyn, daptomycin and Eraxis; to continue while waiting for condition to stabilize and culture to finalize. Continue supportive care. MMODL / IJN: [id number] /
[2020-08-17] MEDS: CHLORHEXIDINE GLUCONATE 15 ML CUP MUCOUS MEM SCH (23:16)
[2020-08-17 23:32] LABS: Glucose,Whole Blood 213 mg/dL (75-99)
[2020-08-18] MEDS: IPRATROPIUM-ALBUTEROL 3 ML NEB INHALATION SCH ×6 (00:52→21:30)
[2020-08-18] MEDS: NOREPINEPHRINE 4 MG in SODIUM CHLORIDE 0.9% 250 ML IV SCH (02:21)
[2020-08-18 04:14] LABS: Glucose,Whole Blood 127 mg/dL (75-99)
[2020-08-18 04:29] LABS: Anisocytosis Slight; Basophils # (A) 0.1 k/uL (0-0.2); Basophils % (A) 1 %; Eosinophils # (A) 0.4 k/uL (0-0.7); Eosinophils % (A) 4 %; HCT 26.6 % (39.0-53.0); Hypochromasia Marked; Lymphocytes # (A) 0.4 k/uL (1.0-4.8); Lymphocytes % (A) 5 %; MCH 30.2 pg (25.0-35.0); MCV 97.6 fL (80.0-100.0); Macrocytosis Slight; Mean Platelet Volume 9.1; Monocytes # (A) 0.6 k/uL (0-1.0); Monocytes % (A) 6 %; Neutrophils # (A) 7.7 k/uL (1.3-7.7); Neutrophils % (A) 83 %; Platelet Count 304 k/uL (150-450); RBC 2.73 m/uL (4.30-5.90); RDW 16.2 % (11.5-15.5); WBC 9.2 k/uL (3.8-10.6)
[2020-08-18 04:30] LABS: HGB 8.3 gm/dL (13.0-17.5)
[2020-08-18] MEDS: INSULIN ASPART (NovoLOG) 100 UNIT/ML VIAL SQ SCH ×5 (04:36→20:02)
[2020-08-18 05:06] LABS: Calcium 9.3 mg/dL (8.4-10.2); Magnesium 2.6 mg/dL (1.6-2.3); Phosphorus 5.2 mg/dL (2.5-4.5); Potassium 4.3 mmol/L (3.5-5.1)
[2020-08-18 05:47] LABS: ABG Base Excess 5.9 mmol/L; ABG HCO3 31 mmol/L (21-25); ABG Oxygen Saturation 99.5 % (94-97); ABG PCO2 52 mmHg (35-45); ABG PH 7.39 (7.35-7.45); ABG PO2 168 mmHg (83-108); ABG TCO2 33 mmol/L (19-24); Allen Test Performed? Yes
--- NOTE | 2020-08-18 06:59 | XR ---
EXAMINATION TYPE: XR chest 1V portable DATE OF EXAM: 08/18/2020 CLINICAL HISTORY: Difficulty breathing progress study. Postoperative CABG. TECHNIQUE: Single AP portable upright view of the chest is obtained. COMPARISON: Chest x-ray from one day earlier and older studies. FINDINGS: Stable right-sided PICC line. Stable endotracheal and orogastric tubes. Redemonstration of overlying sternal wires and mediastinal clips along with left atrial appendage clip. Background underlying emphysematous change with mild cardiomegaly and mild central vascular congestio n along with bibasilar opacities are all redemonstrated. Osseous structures are intact. IMPRESSION: Correlate for CHF exacerbation as there is mild cardiomegaly with small size bilateral pl eural effusions and mild central vascular congestion and associated by basilar acute atelectasis and/ or infiltrate are all redemonstrated. Findings some background chronic emphysematous change. No signi ficant change from one day earlier.
[2020-08-18] MEDS: BUDESONIDE 1 MG/2 ML NEBU INHALATION SCH ×2 (07:19→21:30)
[2020-08-18] MEDS: FORMOTEROL FUMARATE 20 MCG/2 ML NEBU INHALATION SCH ×2 (07:19→21:30)
[2020-08-18 07:57] LABS: Glucose,Whole Blood 191 mg/dL (75-99)
[2020-08-18] MEDS: CHLORHEXIDINE GLUCONATE 15 ML CUP MUCOUS MEM SCH ×2 (08:13→20:06)
[2020-08-18] MEDS: PIPERACILLIN-TAZOBACTAM 3.375 GM in SODIUM CHLORIDE 0.9% 100 ML IVPB SCH ×2 (08:13→16:52)
[2020-08-18] MEDS: ANIDULAFUNGIN 100 MG in SODIUM CHLORIDE 0.9% 100 ML IVPB SCH (08:13)
[2020-08-18] MEDS: METOPROLOL TARTRATE 50 MG TAB PO SCH ×2 (08:14→20:06)
[2020-08-18] MEDS: AMIODARONE 200 MG TAB PO SCH ×2 (08:14→20:06)
[2020-08-18] MEDS: PANTOPRAZOLE 40 MG/10 ML VIAL IVP SCH ×2 (08:14→20:06)
[2020-08-18] MEDS: ASPIRIN 81 MG PO SCH (08:14)
[2020-08-18] MEDS: LEVOTHYROXINE IVP 100 MCG/5 ML VIAL IV SCH (08:14)
--- NOTE | 2020-08-18 09:15 | P.PN ---
Subjective Progress Note Date: 08/18/20 Principal diagnosis: Symptomatic triple-vessel coronary artery disease, mild left ventricular dysfunction. Previuos medical history of stenting to his right coronary artery in 2002, hypertension, hyperlipidemia, hypothyroid status post partial thyroidectomy, previous tobacco dependence quit smoking 20 years ago, moderate chronic obstructive pulmonary disease with preoperative FEV1 of 56% of predicted value, bullous emphysema, remote history of pneumonia, type 2 diabetes mellitus with a preoperative hemoglobin A1c of 5.2%, chronic kidney disease stage III with a baseline creatinine of 1.4-1.5, family history of premature coronary artery disease with brother having had CABG at less than 50 years old. POD #31 double coronary artery bypass grafting using the left internal mammary artery to left anterior descending coronary artery, reverse greater saphenous vein graft from the aorta to the posterior descending coronary artery. Exclusion of the left atrial appendage using a 35 mm Atriclip, endoscopic harvesting of the right greater saphenous vein from the groin to above the ankle level, graft flow measurement using the [employer]metricks system, intraoperative transesophageal echocardiogram and epi-aortic scanning. Postoperative acute blood loss anemia, expected outcome from hemodilution and cardiopulmonary bypass. Postoperative paroxysmal atrial fibrillation, unexpected but common outcome after open heart surgery. Pneumoperitoneum, unexpected Acute on chronic kidney disease secondary to ATN Pneumatosis of the small bowel POD #25 ischemic bowel, small bowel resection Acute hypoxic respiratory failure with reintubation, prolonged mechanical ventilation, unexpected Acute abdomen, intraperitoneal hemorrhage POD #16 Exploratory laparotomy, washout of peritoneal cavity, ileostomy with small bowel resection The patient is currently laying in bed in the intensive care unit in no acute distress. He developed hypoxemia yesterday despite BiPAP and his respiratory rate was climbing, subsequently he was reintubated. Currently remains in NSR with heart rate in the high 50s to low 60s. NG tube in place, bolus tube feeding continues with good tolerance along with free water flushes. Remains on IV Eraxis, daptomyocin, Zosyn by Dr. Frederick. T-max in the last 24 hours 99F, white blood cell count 9.2. New sputum culture sent yesterday after intubation, preliminary Gram stain demonstrates rare gram-positive cocci. Sputum culture from 08/03/20 demonstrating aurora albicans, blood culture negative, CVC catheter tip removed 08/03/20 growing staph epidermis. Patient continues to have liquid light brown stool through ileostomy, 550mL in the last 12 hours, 1300 mL in the last 24 hours. Wound vac in place to mid abdominal incision, changed M-W-. was started on IV heparin yesterday for anticoagulation due to continued intermittent atrial fibrillation. Also was initiated on low-dose levo after intubation secondary to hypotension. Currently sedated with propofol. Objective - Vital Signs Vital signs: Vital Signs Temp 97.6 F 08/18/20 04:00 Pulse 62 08/18/20 07:41 Resp 25 H 08/18/20 06:00 BP 102/51 08/18/20 00:30 Pulse Ox 96 08/18/20 06:00 Intake & Output 08/17/20 08/18/20 08/18/20 18:59 06:59 18:59 Intake Total 2268.674 2115.171 20.904 Output Total 1395 1410 Balance 873.674 705.171 20.904 Weight 87.1 kg 86.1 kg Intake: IV 310 350 Anidulafungin 100 mg In 100 Sodium Chloride 0.9% 100 ml @ 84 mls/hr IVPB DAILY [facility] Rx#:[id number] Dextrose 5% in Water 1, 220 000 ml @ 20 mls/hr IV . Q24H [facility] Rx#:[id number] Piperacillin-Tazobactam 3 200 100 .375 gm In Sodium Chloride 0.9% 100 ml @ 25 mls/hr IVPB Q8HR [facility] Rx# :[id number] Sodium Chloride 0.9% 1, 10 000 ml @ 10 mls/hr IV . Q24H [facility] Rx#:[id number] pressure bag 30 Intake, IV Titration 1368.674 625.171 20.904 Amount Albumin Human 5% 250 ml @ 250 0 mls/hr IVPB .STK-MED [facility] Rx#:[id number] Albumin Human 5% 500 ml 500 In Empty Bag 1 bag @ 500 mls/hr IVPB ONCE [facility] Rx#: [id number] DAPTOmycin 650 mg In 50 Sodium Chloride 0.9% 50 ml @ 100 mls/hr IVPB Q24H [facility] Rx#:[id number] Dextrose 5% in Water 1, 80 20 000 ml @ 20 mls/hr IV . Q24H [facility] Rx#:[id number] Heparin Sod,Pork in 0.45% 46.0 140.929 NaCl 25,000 unit In 0.45 % NaCl 1 250ml.bag @ 11. 481 UNITS/KG/HR 10 mls/hr IV .Q24H [facility] Rx#: [id number] Insulin Regular 100 unit 0 In Sodium Chloride 0.9% 100 ml @ Per Protocol IV .Q0M [facility] Rx#:[id number] Norepinephrine 4 mg In 122.674 83.239 Sodium Chloride 0.9% 250 ml @ 0.05 MCG/KG/MIN 16. 593 mls/hr IV .[id number] [facility] Rx#:[id number] Sodium Chloride 0.9% 1, 170 000 ml @ 20 mls/hr IV . Q24H [facility] Rx#:[id number] propofoL 1,000 mg In 150 381.003 20.904 Empty Bag 1 bag @ Titrate IV .Q0M [facility] Rx#: [id number] Tube Feeding 360 540 Other 230 600 Output: Gastric Drainage 330 Urine 465 710 Stool 600 700 Other: Voiding Method Indwelling Catheter Indwelling Catheter ABP, PAP, CO, CI - Last Documented Arterial Blood Pressure 109/45 Pulmonary Artery Pressure 33/14 Cardiac Output 6.7 Cardiac Index 3.1 - Constitutional General appearance: Present: no acute distress - Respiratory Details: Lungs sounds diminished bilaterally with coarse breath sounds in the bases. Respirations even, non-labored on mechanical ventilation. Current settings assist control mode, FiO2 40%, tidal volume 450, respiratory rate 24, PEEP 5. ABGs this morning 7.39/52/168/31/99%/5.9 on 60% FiO2 with a PEEP of 5. 8.0 ET tube present, 23 at the lip. - Cardiovascular Details: S1, S2 present. Regular rate and rhythm, sinus rhythm on telemetry with rate in the high 50s to low 60s. Sternum stable. Palpable peripheral pulses bilaterally. Generalized trace upper extremity edema present, continues to be less everyday. Heart hugger, antiembolism stockings, SCDs present. Right brachial PICC line present. Left radial arterial line present - Gastrointestinal Gastrointestinal Comment(s): Abdomen soft, nontender, nondistended. Active bowel sounds present. NG tube present, continues with bolus tube feeding and free water flushes with minimal residual. Ileostomy present to Q, stoma pink and moist, positive light brown liquid stool, 550 mL in the last 12 hours, 1300 mL in the last 24 hours. - Genitourinary Genitourinary Comment(s): Villafana catheter present draining clear, yellow urine. Output 30-75 mL/h overnight, 1175 mL in the last 24 hours - Integumentary Integumentary Comment(s): Skin is warm and dry. Anterior chest incision well approximated and covered with dry intact dressing. Right lower extremity EVH site well approximated. Mid abdominal incision open, wound vac in place. - Neurologic Neurologic Comment(s): Sedated with propofol on mechanical ventilation, does move all 4 extremities - Allied health notes Allied health notes reviewed: nursing - Labs CBC & Chem 7: 08/18/20 04:15 08/18/20 04:15 Labs: Abnormal Lab Results - Last 24 Hours (Table) 08/17/20 08/17/20 08/17/20 Range/Units 11:19 11:25 12:28 RBC (4.30-5.90) m/uL Hgb (13.0-17.5) gm/dL Hct (39.0-53.0) % RDW (11.5-15.5) % Lymphocytes # (1.0-4.8) k/uL APTT (22.0-30.0) sec ABG pH 7.34 L (7.35-7.45) ABG pCO2 63 H 63 H (35-45) mmHg ABG pO2 55 L* (83-108) mmHg ABG HCO3 34 H 34 H (21-25) mmol/L ABG Total CO2 36 H 36 H (19-24) mmol/L ABG O2 Saturation 86.0 L 98.6 H (94-97) % Carbon Dioxide (22-30) mmol/L BUN (9-20) mg/dL Creatinine (0.66-1.25) mg/dL Glucose (74-99) mg/dL POC Glucose (mg/dL) 124 H (75-99) mg/dL Phosphorus (2.5-4.5) mg/dL Magnesium (1.6-2.3) mg/dL 08/17/20 08/17/20 08/17/20 Range/Units 15:57 19:57 20:40 RBC (4.30-5.90) m/uL Hgb (13.0-17.5) gm/dL Hct (39.0-53.0) % RDW (11.5-15.5) % Lymphocytes # (1.0-4.8) k/uL APTT 79.8 H (22.0-30.0) sec ABG pH (7.35-7.45) ABG pCO2 (35-45) mmHg ABG pO2 (83-108) mmHg ABG HCO3 (21-25) mmol/L ABG Total CO2 (19-24) mmol/L ABG O2 Saturation (94-97) % Carbon Dioxide (22-30) mmol/L BUN (9-20) mg/dL Creatinine (0.66-1.25) mg/dL Glucose (74-99) mg/dL POC Glucose (mg/dL) 125 H 137 H (75-99) mg/dL Phosphorus (2.5-4.5) mg/dL Magnesium (1.6-2.3) mg/dL 08/17/20 08/18/20 08/18/20 Range/Units 23:30 04:12 04:15 RBC 2.73 L (4.30-5.90) m/uL Hgb 8.3 L D (13.0-17.5) gm/dL Hct 26.6 L (39.0-53.0) % RDW 16.2 H (11.5-15.5) % Lymphocytes # 0.4 L (1.0-4.8) k/uL APTT (22.0-30.0) sec ABG pH (7.35-7.45) ABG pCO2 (35-45) mmHg ABG pO2 (83-108) mmHg ABG HCO3 (21-25) mmol/L ABG Total CO2 (19-24) mmol/L ABG O2 Saturation (94-97) % Carbon Dioxide (22-30) mmol/L BUN (9-20) mg/dL Creatinine (0.66-1.25) mg/dL Glucose (74-99) mg/dL POC Glucose (mg/dL) 213 H 127 H (75-99) mg/dL Phosphorus (2.5-4.5) mg/dL Magnesium (1.6-2.3) mg/dL 08/18/20 08/18/20 08/18/20 Range/Units 04:15 04:15 05:40 RBC (4.30-5.90) m/uL Hgb (13.0-17.5) gm/dL Hct (39.0-53.0) % RDW (11.5-15.5) % Lymphocytes # (1.0-4.8) k/uL APTT 40.8 H (22.0-30.0) sec ABG pH (7.35-7.45) ABG pCO2 52 H (35-45) mmHg ABG pO2 168 H (83-108) mmHg ABG HCO3 31 H (21-25) mmol/L ABG Total CO2 33 H (19-24) mmol/L ABG O2 Saturation 99.5 H (94-97) % Carbon Dioxide 31 H (22-30) mmol/L BUN 85 H (9-20) mg/dL Creatinine 2.30 H (0.66-1.25) mg/dL Glucose 136 H (74-99) mg/dL POC Glucose (mg/dL) (75-99) mg/dL Phosphorus 5.2 H (2.5-4.5) mg/dL Magnesium 2.6 H (1.6-2.3) mg/dL 08/18/20 Range/Units 07:54 RBC (4.30-5.90) m/uL Hgb (13.0-17.5) gm/dL Hct (39.0-53.0) % RDW (11.5-15.5) % Lymphocytes # (1.0-4.8) k/uL APTT (22.0-30.0) sec ABG pH (7.35-7.45) ABG pCO2 (35-45) mmHg ABG pO2 (83-108) mmHg ABG HCO3 (21-25) mmol/L ABG Total CO2 (19-24) mmol/L ABG O2 Saturation (94-97) % Carbon Dioxide (22-30) mmol/L BUN (9-20) mg/dL Creatinine (0.66-1.25) mg/dL Glucose (74-99) mg/dL POC Glucose (mg/dL) 191 H (75-99) mg/dL Phosphorus (2.5-4.5) mg/dL Magnesium (1.6-2.3) mg/dL Microbiology - Last 24 Hours (Table) 12/31/20 21:50 Gram Stain - Preliminary Sputum Sputum Culture - Preliminary 08/15/20 21:11 Blood Culture - Preliminary Blood No Growth after 48 hours - Imaging and Cardiology Chest x-ray: report reviewed, image reviewed Assessment and Plan Assessment: 1. Symptomatic triple-vessel coronary artery disease, status post 2 vessel CABG 2. Mild left ventricular dysfunction 3. Previuos history of stenting to his right coronary artery in 2002 4. Hypertension 5. Hyperlipidemia 6. Hypothyroid status post partial thyroidectomy 7. Previous tobacco dependence with bullous emphysema 8. Moderate chronic obstructive pulmonary disease with preoperative FEV1 of 56% of predicted value 9. Remote history of pneumonia 10. Type 2 diabetes mellitus with a preoperative hemoglobin A1c of 5.2% 11. Chronic kidney disease stage III with a baseline creatinine of 1.4-1.5 12. Family history of premature coronary artery disease with brother having had CABG at less than 50 years old 13. Postoperative acute blood loss anemia, expected outcome 14. Postoperative paroxysmal atrial fibrillation, unexpected, status post exclusion of the left atrial appendage 15. Pneumoperitoneum, unexpected 16. Acute on chronic kidney disease with hyponatremia, hyperkalemia 17. Pneumatosis of the small bowel, status post small bowel resection 18. Sputum culture positive for pseudomonas fluorescens, second sputum positive for aurora 19. Acute hypoxic respiratory failure with reintubation, prolonged mechanical ventilation 20. Acute abdomen, intraperitoneal hemorrhage, S/P exploratory laparotomy, washout of peritoneal cavity, ileostomy with small bowel resection 21. Generalized debility secondary to above Plan: 1. Continue low dose aspirin, beta apolinar. Wean levo as able 2. Continue amiodarone for afib. Continue IV heparin for now 3. Mechanical ventilation, bronchodilators, inhaled steroids per pulmonology management. Use as minimal sedation as possible 4. Will monitor daily labs and chest x-rays. Will obtain type and screen 5. GI/DVT prophylaxis. 6. Pain control with current medication regimen. 7. Insulin management per primary care service 8. Continue bolus tube feedings 9. Nephrology following. Avoid nephrotoxic agents. 10. Strict accurate intake and output, daily weight 11. Continue IV Eraxis day #14, daptomycin day#14, re-added Zosyn, day 2 (previously on from 07/24/20-08/05/20) per infectious disease. 12. Wound vac to be changed --F 13. Patient will need a trach and PEG at some point. This was discussed with the patient's daughter Corinne yesterday who will discuss with the patient's 14. DC planning continues, social work on board to assist. Anticipate DC to LTAC when able 15. More recommendations to follow based on patient's clinical course. Time with Patient: Greater than 30
--- NOTE | 2020-08-18 09:43 | P.PN ---
Subjective Progress Note Date: 08/18/20 Principal diagnosis: Ischemic bowel Patient placed back on the ventilator yesterday. Appears comfortable at this time. Tolerating tube feeds currently. Patient is afebrile. Objective - Vital Signs Vital signs: Vital Signs Temp 97.6 F 08/18/20 04:00 Pulse 62 08/18/20 07:41 Resp 25 H 08/18/20 06:00 BP 102/51 08/18/20 00:30 Pulse Ox 96 08/18/20 06:00 Intake & Output 08/17/20 08/18/20 08/18/20 18:59 06:59 18:59 Intake Total 2268.674 2115.171 20.904 Output Total 1395 1410 Balance 873.674 705.171 20.904 Weight 87.1 kg 86.1 kg Intake: IV 310 350 Anidulafungin 100 mg In 100 Sodium Chloride 0.9% 100 ml @ 84 mls/hr IVPB DAILY [facility] Rx#:[id number] Dextrose 5% in Water 1, 220 000 ml @ 20 mls/hr IV . Q24H [facility] Rx#:[id number] Piperacillin-Tazobactam 3 200 100 .375 gm In Sodium Chloride 0.9% 100 ml @ 25 mls/hr IVPB Q8HR [facility] Rx# :[id number] Sodium Chloride 0.9% 1, 10 000 ml @ 10 mls/hr IV . Q24H [facility] Rx#:[id number] pressure bag 30 Intake, IV Titration 1368.674 625.171 20.904 Amount Albumin Human 5% 250 ml @ 250 0 mls/hr IVPB .STK-MED ONE Rx#:[id number] Albumin Human 5% 500 ml 500 In Empty Bag 1 bag @ 500 mls/hr IVPB ONCE [facility] Rx#: [id number] DAPTOmycin 650 mg In 50 Sodium Chloride 0.9% 50 ml @ 100 mls/hr IVPB Q24H [facility] Rx#:[id number] Dextrose 5% in Water 1, 80 20 000 ml @ 20 mls/hr IV . Q24H [facility] Rx#:[id number] Heparin Sod,Pork in 0.45% 46.0 140.929 NaCl 25,000 unit In 0.45 % NaCl 1 250ml.bag @ 11. 481 UNITS/KG/HR 10 mls/hr IV .Q24H [facility] Rx#: [id number] Insulin Regular 100 unit 0 In Sodium Chloride 0.9% 100 ml @ Per Protocol IV .Q0M [facility] Rx#:[id number] Norepinephrine 4 mg In 122.674 83.239 Sodium Chloride 0.9% 250 ml @ 0.05 MCG/KG/MIN 16. 593 mls/hr IV .[id number] [facility] Rx#:[id number] Sodium Chloride 0.9% 1, 170 000 ml @ 20 mls/hr IV . Q24H [facility] Rx#:[id number] propofoL 1,000 mg In 150 381.003 20.904 Empty Bag 1 bag @ Titrate IV .Q0M [facility] Rx#: [id number] Tube Feeding 360 540 Other 230 600 Output: Gastric Drainage 330 Urine 465 710 Stool 600 700 Other: Voiding Method Indwelling Catheter Indwelling Catheter ABP, PAP, CO, CI - Last Documented Arterial Blood Pressure 109/45 Pulmonary Artery Pressure 33/14 Cardiac Output 6.7 Cardiac Index 3.1 - Exam Abdomen: Soft, nondistended, wound VAC in place, ostomy function - Labs CBC & Chem 7: 08/18/20 04:15 08/18/20 04:15 Labs: Abnormal Lab Results - Last 24 Hours (Table) 08/17/20 08/17/20 08/17/20 Range/Units 11:19 11:25 12:28 RBC (4.30-5.90) m/uL Hgb (13.0-17.5) gm/dL Hct (39.0-53.0) % RDW (11.5-15.5) % Lymphocytes # (1.0-4.8) k/uL APTT (22.0-30.0) sec ABG pH 7.34 L (7.35-7.45) ABG pCO2 63 H 63 H (35-45) mmHg ABG pO2 55 L* (83-108) mmHg ABG HCO3 34 H 34 H (21-25) mmol/L ABG Total CO2 36 H 36 H (19-24) mmol/L ABG O2 Saturation 86.0 L 98.6 H (94-97) % Carbon Dioxide (22-30) mmol/L BUN (9-20) mg/dL Creatinine (0.66-1.25) mg/dL Glucose (74-99) mg/dL POC Glucose (mg/dL) 124 H (75-99) mg/dL Phosphorus (2.5-4.5) mg/dL Magnesium (1.6-2.3) mg/dL 08/17/20 08/17/20 08/17/20 Range/Units 15:57 19:57 20:40 RBC (4.30-5.90) m/uL Hgb (13.0-17.5) gm/dL Hct (39.0-53.0) % RDW (11.5-15.5) % Lymphocytes # (1.0-4.8) k/uL APTT 79.8 H (22.0-30.0) sec ABG pH (7.35-7.45) ABG pCO2 (35-45) mmHg ABG pO2 (83-108) mmHg ABG HCO3 (21-25) mmol/L ABG Total CO2 (19-24) mmol/L ABG O2 Saturation (94-97) % Carbon Dioxide (22-30) mmol/L BUN (9-20) mg/dL Creatinine (0.66-1.25) mg/dL Glucose (74-99) mg/dL POC Glucose (mg/dL) 125 H 137 H (75-99) mg/dL Phosphorus (2.5-4.5) mg/dL Magnesium (1.6-2.3) mg/dL 08/17/20 08/18/20 08/18/20 Range/Units 23:30 04:12 04:15 RBC 2.73 L (4.30-5.90) m/uL Hgb 8.3 L D (13.0-17.5) gm/dL Hct 26.6 L (39.0-53.0) % RDW 16.2 H (11.5-15.5) % Lymphocytes # 0.4 L (1.0-4.8) k/uL APTT (22.0-30.0) sec ABG pH (7.35-7.45) ABG pCO2 (35-45) mmHg ABG pO2 (83-108) mmHg ABG HCO3 (21-25) mmol/L ABG Total CO2 (19-24) mmol/L ABG O2 Saturation (94-97) % Carbon Dioxide (22-30) mmol/L BUN (9-20) mg/dL Creatinine (0.66-1.25) mg/dL Glucose (74-99) mg/dL POC Glucose (mg/dL) 213 H 127 H (75-99) mg/dL Phosphorus (2.5-4.5) mg/dL Magnesium (1.6-2.3) mg/dL 08/18/20 08/18/20 08/18/20 Range/Units 04:15 04:15 05:40 RBC (4.30-5.90) m/uL Hgb (13.0-17.5) gm/dL Hct (39.0-53.0) % RDW (11.5-15.5) % Lymphocytes # (1.0-4.8) k/uL APTT 40.8 H (22.0-30.0) sec ABG pH (7.35-7.45) ABG pCO2 52 H (35-45) mmHg ABG pO2 168 H (83-108) mmHg ABG HCO3 31 H (21-25) mmol/L ABG Total CO2 33 H (19-24) mmol/L ABG O2 Saturation 99.5 H (94-97) % Carbon Dioxide 31 H (22-30) mmol/L BUN 85 H (9-20) mg/dL Creatinine 2.30 H (0.66-1.25) mg/dL Glucose 136 H (74-99) mg/dL POC Glucose (mg/dL) (75-99) mg/dL Phosphorus 5.2 H (2.5-4.5) mg/dL Magnesium 2.6 H (1.6-2.3) mg/dL 08/18/20 Range/Units 07:54 RBC (4.30-5.90) m/uL Hgb (13.0-17.5) gm/dL Hct (39.0-53.0) % RDW (11.5-15.5) % Lymphocytes # (1.0-4.8) k/uL APTT (22.0-30.0) sec ABG pH (7.35-7.45) ABG pCO2 (35-45) mmHg ABG pO2 (83-108) mmHg ABG HCO3 (21-25) mmol/L ABG Total CO2 (19-24) mmol/L ABG O2 Saturation (94-97) % Carbon Dioxide (22-30) mmol/L BUN (9-20) mg/dL Creatinine (0.66-1.25) mg/dL Glucose (74-99) mg/dL POC Glucose (mg/dL) 191 H (75-99) mg/dL Phosphorus (2.5-4.5) mg/dL Magnesium (1.6-2.3) mg/dL Microbiology - Last 24 Hours (Table) 08/17/20 21:50 Gram Stain - Preliminary Sputum Sputum Culture - Preliminary 08/15/20 21:11 Blood Culture - Preliminary Blood No Growth after 48 hours Assessment and Plan (1) Ischemic colitis, enteritis, or enterocolitis Narrative/Plan: Patient with reintubation yesterday for hypoxemia. Patient likely will require tracheostomy. Apparently this is being discussed with the patient's . Tra cheostomy could be performed by either Dr. Cantor or Dr. Dempsey. Current Visit: Yes Status: Acute Code(s): K55.9 - VASCULAR DISORDER OF INTESTINE, UNSPECIFIED SNOMED Code(s): 36797915
--- NOTE | 2020-08-18 10:53 | P.PN ---
Subjective Progress Note Date: 08/18/20 Principal diagnosis: Coronary artery disease and status post CABG This is a 80-year-old gentleman with coronary artery disease and status post CABG as well as paroxysmal atrial fibrillation as well as history of ischemic bowel and status post surgery. The patient was seen today August 182020. Unfortunately he went into respiratory distress yesterday and he was intubated and placed on mechanical ventilation. Also he is hemodynamically unstable and required very small dose of norepinephrine. Also he was started on heparin IV for the paroxysmal atrial fibrillation. Objective - Vital Signs Vital signs: Vital Signs Temp 97.7 F 08/18/20 08:00 Pulse 89 08/18/20 09:30 Resp 24 08/18/20 09:30 BP 102/51 08/18/20 00:30 Pulse Ox 97 08/18/20 09:30 Intake & Output 08/17/20 08/18/20 08/18/20 18:59 06:59 18:59 Intake Total 2268.674 2115.171 696.904 Output Total 1395 1410 275 Balance 873.674 705.171 421.904 Weight 87.1 kg 86.1 kg 86.1 kg Intake: IV 310 350 246 Anidulafungin 100 mg In 100 100 Sodium Chloride 0.9% 100 ml @ 84 mls/hr IVPB DAILY [facility] Rx#:[id number] Dextrose 5% in Water 1, 220 40 000 ml @ 20 mls/hr IV . Q24H [facility] Rx#:[id number] Piperacillin-Tazobactam 3 200 100 100 .375 gm In Sodium Chloride 0.9% 100 ml @ 25 mls/hr IVPB Q8HR [facility] Rx# :[id number] Sodium Chloride 0.9% 1, 10 000 ml @ 10 mls/hr IV . Q24H [facility] Rx#:[id number] pressure bag 30 6 Intake, IV Titration 1368.674 625.171 20.904 Amount Albumin Human 5% 250 ml @ 250 0 mls/hr IVPB .[facility] Rx#:[id number] Albumin Human 5% 500 ml 500 In Empty Bag 1 bag @ 500 mls/hr IVPB ONCE [facility] Rx#: [id number] DAPTOmycin 650 mg In 50 Sodium Chloride 0.9% 50 ml @ 100 mls/hr IVPB Q24H [facility] Rx#:[id number] Dextrose 5% in Water 1, 80 20 000 ml @ 20 mls/hr IV . Q24H [facility] Rx#:[id number] Heparin Sod,Pork in 0.45% 46.0 140.929 NaCl 25,000 unit In 0.45 % NaCl 1 250ml.bag @ 11. 481 UNITS/KG/HR 10 mls/hr IV .Q24H [facility] Rx#: [id number] Insulin Regular 100 unit 0 In Sodium Chloride 0.9% 100 ml @ Per Protocol IV .Q0M [facility] Rx#:[id number] Norepinephrine 4 mg In 122.674 83.239 Sodium Chloride 0.9% 250 ml @ 0.05 MCG/KG/MIN 16. 593 mls/hr IV .[id number] [facility] Rx#:[id number] Sodium Chloride 0.9% 1, 170 000 ml @ 20 mls/hr IV . Q24H [facility] Rx#:[id number] propofoL 1,000 mg In 150 381.003 20.904 Empty Bag 1 bag @ Titrate IV .Q0M [facility] Rx#: [id number] Tube Feeding 360 540 180 Other 230 600 250 Output: Gastric Drainage 330 Urine 465 710 125 Stool 600 700 150 Other: Voiding Method Indwelling Catheter Indwelling Catheter Indwelling Catheter ABP, PAP, CO, CI - Last Documented Arterial Blood Pressure 101/51 Pulmonary Artery Pressure 33/14 Cardiac Output 6.7 Cardiac Index 3.1 - Constitutional General appearance: Present: no acute distress - Respiratory Respiratory: bilateral: diminished - Cardiovascular Rhythm: regular Heart sounds: normal: S1, S2 - Labs CBC & Chem 7: 08/18/20 04:15 08/18/20 04:15 Labs: Abnormal Lab Results - Last 24 Hours (Table) 08/17/20 08/17/20 08/17/20 Range/Units 11:19 11:25 12:28 RBC (4.30-5.90) m/uL Hgb (13.0-17.5) gm/dL Hct (39.0-53.0) % RDW (11.5-15.5) % Lymphocytes # (1.0-4.8) k/uL APTT (22.0-30.0) sec ABG pH 7.34 L (7.35-7.45) ABG pCO2 63 H 63 H (35-45) mmHg ABG pO2 55 L* (83-108) mmHg ABG HCO3 34 H 34 H (21-25) mmol/L ABG Total CO2 36 H 36 H (19-24) mmol/L ABG O2 Saturation 86.0 L 98.6 H (94-97) % Carbon Dioxide (22-30) mmol/L BUN (9-20) mg/dL Creatinine (0.66-1.25) mg/dL Glucose (74-99) mg/dL POC Glucose (mg/dL) 124 H (75-99) mg/dL Phosphorus (2.5-4.5) mg/dL Magnesium (1.6-2.3) mg/dL 08/17/20 08/17/20 08/17/20 Range/Units 15:57 19:57 20:40 RBC (4.30-5.90) m/uL Hgb (13.0-17.5) gm/dL Hct (39.0-53.0) % RDW (11.5-15.5) % Lymphocytes # (1.0-4.8) k/uL APTT 79.8 H (22.0-30.0) sec ABG pH (7.35-7.45) ABG pCO2 (35-45) mmHg ABG pO2 (83-108) mmHg ABG HCO3 (21-25) mmol/L ABG Total CO2 (19-24) mmol/L ABG O2 Saturation (94-97) % Carbon Dioxide (22-30) mmol/L BUN (9-20) mg/dL Creatinine (0.66-1.25) mg/dL Glucose (74-99) mg/dL POC Glucose (mg/dL) 125 H 137 H (75-99) mg/dL Phosphorus (2.5-4.5) mg/dL Magnesium (1.6-2.3) mg/dL 08/17/20 08/18/20 08/18/20 Range/Units 23:30 04:12 04:15 RBC 2.73 L (4.30-5.90) m/uL Hgb 8.3 L D (13.0-17.5) gm/dL Hct 26.6 L (39.0-53.0) % RDW 16.2 H (11.5-15.5) % Lymphocytes # 0.4 L (1.0-4.8) k/uL APTT (22.0-30.0) sec ABG pH (7.35-7.45) ABG pCO2 (35-45) mmHg ABG pO2 (83-108) mmHg ABG HCO3 (21-25) mmol/L ABG Total CO2 (19-24) mmol/L ABG O2 Saturation (94-97) % Carbon Dioxide (22-30) mmol/L BUN (9-20) mg/dL Creatinine (0.66-1.25) mg/dL Glucose (74-99) mg/dL POC Glucose (mg/dL) 213 H 127 H (75-99) mg/dL Phosphorus (2.5-4.5) mg/dL Magnesium (1.6-2.3) mg/dL 08/18/20 08/18/20 08/18/20 Range/Units 04:15 04:15 05:40 RBC (4.30-5.90) m/uL Hgb (13.0-17.5) gm/dL Hct (39.0-53.0) % RDW (11.5-15.5) % Lymphocytes # (1.0-4.8) k/uL APTT 40.8 H (22.0-30.0) sec ABG pH (7.35-7.45) ABG pCO2 52 H (35-45) mmHg ABG pO2 168 H (83-108) mmHg ABG HCO3 31 H (21-25) mmol/L ABG Total CO2 33 H (19-24) mmol/L ABG O2 Saturation 99.5 H (94-97) % Carbon Dioxide 31 H (22-30) mmol/L BUN 85 H (9-20) mg/dL Creatinine 2.30 H (0.66-1.25) mg/dL Glucose 136 H (74-99) mg/dL POC Glucose (mg/dL) (75-99) mg/dL Phosphorus 5.2 H (2.5-4.5) mg/dL Magnesium 2.6 H (1.6-2.3) mg/dL 08/18/20 Range/Units 07:54 RBC (4.30-5.90) m/uL Hgb (13.0-17.5) gm/dL Hct (39.0-53.0) % RDW (11.5-15.5) % Lymphocytes # (1.0-4.8) k/uL APTT (22.0-30.0) sec ABG pH (7.35-7.45) ABG pCO2 (35-45) mmHg ABG pO2 (83-108) mmHg ABG HCO3 (21-25) mmol/L ABG Total CO2 (19-24) mmol/L ABG O2 Saturation (94-97) % Carbon Dioxide (22-30) mmol/L BUN (9-20) mg/dL Creatinine (0.66-1.25) mg/dL Glucose (74-99) mg/dL POC Glucose (mg/dL) 191 H (75-99) mg/dL Phosphorus (2.5-4.5) mg/dL Magnesium (1.6-2.3) mg/dL Microbiology - Last 24 Hours (Table) 08/17/20 21:50 Gram Stain - Preliminary Sputum Sputum Culture - Preliminary 08/15/20 21:11 Blood Culture - Preliminary Blood No Growth after 48 hours Assessment and Plan Assessment: Assessment #1 coronary artery disease and status post CABG #2 paroxysmal atrial fibrillation #3 multiple comorbid conditions Plan #1 right wean the patient from norepinephrine #2 switch the patient to oral anticoagulation once we make sure there is no need for any further surgical intervention #3 follow-up with the patient
--- NOTE | 2020-08-18 10:55 | P.PN ---
Subjective Progress Note Date: 08/18/20 Principal diagnosis: Coronary artery disease, status post three-vessel bypass grafting 79-year-old white male patient with past medical history of hypertension, hyperlipidemia, moderate to severe COPD with the baseline FEV1 of 56% of predicted who came in on 07/18/2020 for elective two-vessel bypass grafting with PABLO to LAD, and SVG to the PDA. He was seen in the intensive care unit following surgery, patient was successfully weaned and extubated from mechanical ventilator and under 6 hours following his OR exit, is currently awake and alert, sitting in the chair, he is currently on 2 L of oxygen, his pulse ox is 98%, hemodynamically he stable, blood pressure is 106/51, PA pressures 35/11, CVP is 8, no fever or chills, IV fluids including the 0.9 normal saline at a r ate of 30 ML per hour, insulin is 4.5 units per hour, no vasoactive drips. Today's chest x-ray shows a pneumoperitoneum with lucency present underneath the right hemidiaphragm. He has left pleural and mediastinal chest tube, and there has been 500 mL of serosanguineous output from the left pleural and 350 mL from the mediastinal chest tube in the last 24 hours. Is having some mild discomfort under the right rib cage, but no acute distress, abdomen is distended but soft, he is hemodynamically stable, he is in sinus mechanism, no nausea vomiting or diarrhea. CT of the abdomen and pelvis is pending today's labs have been reviewed, showing white blood cell count of 11.9, hemoglobin of 9, sodium is 133, the rest of the electrolytes were within normal limits, B1 is 25 creatinine is 1.18 The patient is seen today 07/20/2020 in follow-up in the intensive care unit. He is currently sitting up in a chair at the bedside. Awake and alert in no acute distress. This is postoperative day #2, two-vessel coronary artery bypass surgery. He is currently on 2 L/m per nasal cannula maintaining good O2 saturation in the 90s. He did have issues with atrial fibrillation and is currently on Cardizem drip at 10 mg per hour. He did receive IV amiodarone, initiated on by mouth today. 0.9 normal saline at KVO. Chest x-ray reveals removal of mediastinal drains. Right-sided pneumoperitoneum is no longer appreciated. Left-sided chest tube remains in place. Bibasilar patchy atelectasis remains. White count 18.2. Hemoglobin 8.9. Platelet count 99,000. Sodium 127. Potassium 5.0. Creatinine 1.37. He is pulling approximately 3249-3663 ML's on the incentive spirometer. Continued on bronchodilators. Heparin for DVT prophylaxis. Patient is seen today 07/22/2020 in follow-up on the intensive care unit. He is currently sitting up in a chair at the bedside. He is having complaints of increasing shortness of breath. He is doing less on his incentive spirometer. Chest x-ray reveals small right pleural effusion with adjacent atelectasis and/or consolidation. He is currently maintaining O2 saturations in the low 90s on 3 L/m per nasal cannula. Respiratory rate 32. He is afebrile. Blood pressure stable. He did have issues with atrial fibrillation with rapid ventricular response last evening. He is on a Cardizem drip at 10 mg per hour. He will be transitioned to Eliquis. On oral amiodarone. 0.9 normal saline at 20 ML's per hour. Currently in sinus rhythm. White count 16.8. Hemoglobin 8.8. Sodium 124. Potassium 5.3. Bicarb 20. Creatinine 1.62. AST 147. ALT 130. He is still having issues with hypoactive bowel and not passing flatus or bowel movement since surgery. He remains on bronchodilators and IV Solu-Medrol. The patient is seen today 07/23/2020 in follow-up in the intensive care unit. Postoperative day #5. He is awake and alert in no acute distress. Currently sitting up in a chair at the bedside. He is feeling stronger today. Less short of breath. Maintaining O2 saturations in the 90s on 3 L/m per nasal cannula. Chest x-ray continues to show a small right pleural effusion with prominent right greater than left basilar atelectasis. He is doing better with his incentive spirometer. White count 15.2. Hemoglobin 81.1. Sodium 124. Potassium 5.3. Creatinine 1.84. AST 136. ALT 193. Albumin 3.4. No IV fluids currently. Is continued on bronchodilators, IV Solu-Medrol, anticoagulated with Eliquis. Still has not had a bowel movement. The patient is seen today 08/09/2020 in follow-up in the intensive care unit. He was extubated again yesterday 08/08/2020. He is currently on 2 L/m per nasal cannula. TPN at 75 ML's per hour. 0.9#10 ML's per hour. Amiodarone at 0.25 mg/m. Insulin drip at 7 units per hour. His x-ray reveals some evidence of fluid volume overload. He is also quite edematous. He'll receive Lasix 40 mg IVP 1 today. He'll also be placed on BiPAP 07/22 on 40% FiO2 as he remains slightly tachypneic and shallow breathing. He is quite weak and debilitated today. He remains on bronchodilators. Eraxis. Daptomycin. Being nourished with lipid and TPN. The patient is seen today 08/11/2020 in follow-up in the intensive care unit. He is currently resting fairly comfortably in bed. Maintaining O2 saturation in the 90s on 2 L/m per nasal cannula. He did wear BiPAP last night at 12/5 and 28% FiO2. He is being nourished with TPN at 75 ML's per hour. He is on insulin at 5.5 units per hour. He remains on amiodarone at 0.25 mg/m. White count 10.0. Hemoglobin 9.2. Sodium 145. Potassium 4.0. Creatinine 1.50. Glucose 120. Chest xray reveals persistent bilateral lung opacities and pleural effusions. No significant change. Remains on DuoNeb inhalations, daptomycin, meropenem. Remains slightly tachycardic. Temperature 99.2 axillary. Needs increased encouragement regarding the use of the incentive spirometer. The patient is seen today 08/12/2020 in follow-up in the intensive care unit. He is awake and alert in no acute distress. He is maintaining O2 saturation in the 90s on 2 L/m per nasal cannula. He has TPN at 75 ML's per hour. 0.9 normal sitting at 10 MLS per hour. Insulin drip at 4 units per hour. Chest x-ray showed a questionable left apical pneumothorax. Computed tomography scan of the chest revealed advanced upper lung emphysema but no convincing pneumothorax. There is moderate bilateral pleural effusions with atelectatic collapse of the entire bilateral lower lobes. Small pericardial effusion. He continues to breathe quite shallow with tachypnea. He remains quite weak and debilitated. Currently afebrile. Hemodynamically stable. White count 10.8. Hemoglobin 9.8. Sodium 143. Potassium 4.1. Creatinine 1.44. Glucose 152. AST 49. ALT 62. Albumin 2.5. He remains on daptomycin, Eraxis, bronchodilators. The patient is seen today 08/13/2020 in follow-up in the intensive care unit. He is currently resting fairly comfortably in bed. He remains awake. He is still very weak and debilitated. Physical therapy is working with the patient. He continues with rapid shallow breathing despite encouraging him to take slower deeper breaths. He is maintaining good O2 saturation in the 90s on 2 L/m per nasal cannula. He has TPN for nourishment at 75 ML's per hour. 0.9#10 mL per hour. Insulin drip at 7 units per hour. Chest x-ray continued showing evidence of COPD and continue small to moderate effusions with adjacent atelectasis/ consolidations. He continues to need increased encouragement to utilize the incentive spirometer and cough and deep breathing exercises. White count 11.7. Hemoglobin 10.0. Sodium 144. Potassium 4.2. Creatinine 1.47. Glucose 151. He remains on DuoNeb inhalations, Pulmicort inhalations. Antibiotics in the form of daptomycin. Eraxis. Heparin for DVT prophylaxis. The patient is seen today 08/16/2020 in follow-up in the intensive care unit. Postoperative day #29 of his coronary artery bypass grafting. He is awake and alert in no acute distress. He is currently sitting up in a chair at the bedside. Maintaining O2 saturations up to 99% on 5 L/m per nasal cannula. He remains tachypneic. He has a respiratory pattern of rapid shallow breathing. Chest x-ray reveals COPD with continued small pleural effusions and patchy atelectasis in the bases. He is status post left-sided thoracentesis with 1.4 L of turbid blood tinged fluid removed yesterday. He is status post 5 units of p acked red blood cells this admission. Current hemoglobin 10.3. Platelet count 370. White count 13.5. Sodium 142. Potassium 4.7. Creatinine 1.55. He remains on bronchodilators, Mucomyst, Pulmicort. Insulin drip at 3.5 units per hour. Being nourished with Glucerna. TPN's at 35 mL per hour. 0.9 normal saline at 10 MLS per hour. The patient is seen today 08/17/2020 in follow-up in the intensive care unit. This is postoperative day #30 of his coronary artery bypass grafting. He is currently resting fairly comfortably in bed. He is on BiPAP 15/5 and 35% FiO2. He is 0.9 normal saline at 50 MLS per hour. He is awake. Chest x-ray continues to show stable bibasilar infiltrates. There is some improvement in the right- sided pleural effusion. White count 11.9. Hemoglobin 10.3. Platelets 285. Sodium 136. Potassium 5.4. Creatinine 1.99. Glucose 147. He remains on DuoNeb inhalations, Pulmicort and Perforomist inhalations, Eraxis, Zosyn, daptomycin. Follow-up blood cultures reveal no growth to date. The patient is seen today 08/18/2020 in follow-up in the intensive care unit. Yesterday he developed worsening shortness of breath despite being on BiPAP. He was quite tachypneic and had desaturations. He was subsequently reintubated and placed back on the mechanical ventilator. Assist-control rate of 24, tidal volume 450, FiO2 of 40% and a PEEP of 5. Morning blood gases reveal a P O2 of 168, pCO2 52, pH 7.38. This breath and FiO2 of 60%. Left radial arterial line placed yesterday. He remains on propofol at 40 mcg/kg/m. Heparin drip per weight-based protocol. 0.9 normal sitting at 25 ML's per hour. Norepinephrine at 4 mcg/m. He is being nourished with Nepro 180 MLS every 4 hours with free water flushes. Chest x-ray reveals evidence of congestive heart failure with mild cardiomegaly and small bilateral pleural effusions with mild central vascular congestion and associated basilar atelectasis. He is status post 5 units of packed red blood cells this admission. Current hemoglobin 8.3. White count 9.2. Sodium 145. Potassium 4.3. Creatinine 2.30. Glucose 136. Magnesium 2.6. He remains on bronchodilators, antibiotics in the form of Zosyn and daptomycin. Remains on Eraxis. Ostomy functioning. Objective - Vital Signs Vital signs: Vital Signs Temp 97.7 F 08/18/20 08:00 Pulse 89 08/18/20 09:30 Resp 24 08/18/20 09:30 BP 102/51 08/18/20 00:30 Pulse Ox 97 08/18/20 09:30 Intake & Output 08/17/20 08/18/20 08/18/20 18:59 06:59 18:59 Intake Total 2268.674 2115.171 696.904 Output Total 1395 1410 275 Balance 873.674 705.171 421.904 Weight 87.1 kg 86.1 kg 86.1 kg Intake: IV 310 350 246 Anidulafungin 100 mg In 100 100 Sodium Chloride 0.9% 100 ml @ 84 mls/hr IVPB DAILY [facility] Rx#:[id number] Dextrose 5% in Water 1, 220 40 000 ml @ 20 mls/hr IV . Q24H [facility] Rx#:[id number] Piperacillin-Tazobactam 3 200 100 100 .375 gm In Sodium Chloride 0.9% 100 ml @ 25 mls/hr IVPB Q8HR [facility] Rx# :[id number] Sodium Chloride 0.9% 1, 10 000 ml @ 10 mls/hr IV . Q24H [facility] Rx#:[id number] pressure bag 30 6 Intake, IV Titration 1368.674 625.171 20.904 Amount Albumin Human 5% 250 ml @ 250 0 mls/hr IVPB .[facility] Rx#:[id number] Albumin Human 5% 500 ml 500 In Empty Bag 1 bag @ 500 mls/hr IVPB ONCE [facility] Rx#: [id number] DAPTOmycin 650 mg In 50 Sodium Chloride 0.9% 50 ml @ 100 mls/hr IVPB Q24H [facility] Rx#:[id number] Dextrose 5% in Water 1, 80 20 000 ml @ 20 mls/hr IV . Q24H [facility] Rx#:[id number] Heparin Sod,Pork in 0.45% 46.0 140.929 NaCl 25,000 unit In 0.45 % NaCl 1 250ml.bag @ 11. 481 UNITS/KG/HR 10 mls/hr IV .Q24H [facility] Rx#: [id number] Insulin Regular 100 unit 0 In Sodium Chloride 0.9% 100 ml @ Per Protocol IV .Q0M [facility] Rx#:[id number] Norepinephrine 4 mg In 122.674 83.239 Sodium Chloride 0.9% 250 ml @ 0.05 MCG/KG/MIN 16. 593 mls/hr IV .[id number] [facility] Rx#:[id number] Sodium Chloride 0.9% 1, 170 000 ml @ 20 mls/hr IV . Q24H [facility] Rx#:[id number] propofoL 1,000 mg In 150 381.003 20.904 Empty Bag 1 bag @ Titrate IV .Q0M [facility] Rx#: [id number] Tube Feeding 360 540 180 Other 230 600 250 Output: Gastric Drainage 330 Urine 465 710 125 Stool 600 700 150 Other: Voiding Method Indwelling Catheter Indwelling Catheter Indwelling Catheter ABP, PAP, CO, CI - Last Documented Arterial Blood Pressure 101/51 Pulmonary Artery Pressure 33/14 Cardiac Output 6.7 Cardiac Index 3.1 - Exam GENERAL EXAM: Intubated, sedated 79-year-old male patient, very weak and debilitated, on the mechanical ventilator at 40% FiO2, fairly comfortable in no apparent distress. HEAD: Normocephalic/atraumatic. EYES: Normal reaction of pupils, equal size. Conjunctiva pink, sclera white. NOSE: Clear with pink turbinates. THROAT: Oral endotracheal and gastric tube secured in place. No erythema or exudates. NECK: No masses, no JVD, no thyroid enlargement, no adenopathy. CHEST: No chest wall deformity. Symmetrical expansion. Midsternal incision is clean dry and intact LUNGS: Equal air entry with scattered crackles in the bases. CVS: Regular rate and rhythm, normal S1 and S2, no gallops, no murmurs, no rubs ABDOMEN: Abdominal incision with wound VAC in place. Ileostomy the right side of the abdomen EXTREMITIES: No clubbing, no edema, no cyanosis, 2+ pulses and upper and lower extremities. MUSCULOSKELETAL: Muscle strength and tone normal. SPINE: No scoliosis or deformity SKIN: No rashes CENTRAL NERVOUS SYSTEM: Intubated, sedated. Tone is normal in all 4 extremities. PSYCHIATRIC: Alert and oriented -3. Appropriate affect. Intact judgment and insight. - Labs CBC & Chem 7: 08/18/20 04:15 08/18/20 04:15 Labs: Abnormal Lab Results - Last 24 Hours (Table) 08/17/20 08/17/20 08/17/20 Range/Units 11:19 11:25 12:28 RBC (4.30-5.90) m/uL Hgb (13.0-17.5) gm/dL Hct (39.0-53.0) % RDW (11.5-15.5) % Lymphocytes # (1.0-4.8) k/uL APTT (22.0-30.0) sec ABG pH 7.34 L (7.35-7.45) ABG pCO2 63 H 63 H (35-45) mmHg ABG pO2 55 L* (83-108) mmHg ABG HCO3 34 H 34 H (21-25) mmol/L ABG Total CO2 36 H 36 H (19-24) mmol/L ABG O2 Saturation 86.0 L 98.6 H (94-97) % Carbon Dioxide (22-30) mmol/L BUN (9-20) mg/dL Creatinine (0.66-1.25) mg/dL Glucose (74-99) mg/dL POC Glucose (mg/dL) 124 H (75-99) mg/dL Phosphorus (2.5-4.5) mg/dL Magnesium (1.6-2.3) mg/dL 08/17/20 08/17/20 08/17/20 Range/Units 15:57 19:57 20:40 RBC (4.30-5.90) m/uL Hgb (13.0-17.5) gm/dL Hct (39.0-53.0) % RDW (11.5-15.5) % Lymphocytes # (1.0-4.8) k/uL APTT 79.8 H (22.0-30.0) sec ABG pH (7.35-7.45) ABG pCO2 (35-45) mmHg ABG pO2 (83-108) mmHg ABG HCO3 (21-25) mmol/L ABG Total CO2 (19-24) mmol/L ABG O2 Saturation (94-97) % Carbon Dioxide (22-30) mmol/L BUN (9-20) mg/dL Creatinine (0.66-1.25) mg/dL Glucose (74-99) mg/dL POC Glucose (mg/dL) 125 H 137 H (75-99) mg/dL Phosphorus (2.5-4.5) mg/dL Magnesium (1.6-2.3) mg/dL 08/17/20 08/18/20 08/18/20 Range/Units 23:30 04:12 04:15 RBC 2.73 L (4.30-5.90) m/uL Hgb 8.3 L D (13.0-17.5) gm/dL Hct 26.6 L (39.0-53.0) % RDW 16.2 H (11.5-15.5) % Lymphocytes # 0.4 L (1.0-4.8) k/uL APTT (22.0-30.0) sec ABG pH (7.35-7.45) ABG pCO2 (35-45) mmHg ABG pO2 (83-108) mmHg ABG HCO3 (21-25) mmol/L ABG Total CO2 (19-24) mmol/L ABG O2 Saturation (94-97) % Carbon Dioxide (22-30) mmol/L BUN (9-20) mg/dL Creatinine (0.66-1.25) mg/dL Glucose (74-99) mg/dL POC Glucose (mg/dL) 213 H 127 H (75-99) mg/dL Phosphorus (2.5-4.5) mg/dL Magnesium (1.6-2.3) mg/dL 08/18/20 08/18/20 08/18/20 Range/Units 04:15 04:15 05:40 RBC (4.30-5.90) m/uL Hgb (13.0-17.5) gm/dL Hct (39.0-53.0) % RDW (11.5-15.5) % Lymphocytes # (1.0-4.8) k/uL APTT 40.8 H (22.0-30.0) sec ABG pH (7.35-7.45) ABG pCO2 52 H (35-45) mmHg ABG pO2 168 H (83-108) mmHg ABG HCO3 31 H (21-25) mmol/L ABG Total CO2 33 H (19-24) mmol/L ABG O2 Saturation 99.5 H (94-97) % Carbon Dioxide 31 H (22-30) mmol/L BUN 85 H (9-20) mg/dL Creatinine 2.30 H (0.66-1.25) mg/dL Glucose 136 H (74-99) mg/dL POC Glucose (mg/dL) (75-99) mg/dL Phosphorus 5.2 H (2.5-4.5) mg/dL Magnesium 2.6 H (1.6-2.3) mg/dL 08/18/20 Range/Units 07:54 RBC (4.30-5.90) m/uL Hgb (13.0-17.5) gm/dL Hct (39.0-53.0) % RDW (11.5-15.5) % Lymphocytes # (1.0-4.8) k/uL APTT (22.0-30.0) sec ABG pH (7.35-7.45) ABG pCO2 (35-45) mmHg ABG pO2 (83-108) mmHg ABG HCO3 (21-25) mmol/L ABG Total CO2 (19-24) mmol/L ABG O2 Saturation (94-97) % Carbon Dioxide (22-30) mmol/L BUN (9-20) mg/dL Creatinine (0.66-1.25) mg/dL Glucose (74-99) mg/dL POC Glucose (mg/dL) 191 H (75-99) mg/dL Phosphorus (2.5-4.5) mg/dL Magnesium (1.6-2.3) mg/dL Microbiology - Last 24 Hours (Table) 08/17/20 21:50 Gram Stain - Preliminary Sputum Sputum Culture - Preliminary 08/15/20 21:11 Blood Culture - Preliminary Blood No Growth after 48 hours Assessment and Plan Assessment: 1 Symptomatic coronary artery disease, status post two-vessel coronary artery bypass grafting with PABLO to the LAD, SVG to the PDA on 07/18/2020 2 Acute hypoxemic respiratory failure requiring reintubation and placed back on a mechanical ventilator on 08/17/2020 3 Postoperative atrial fibrillation with rapid ventricular response, improved. Remains on amiodarone 4 Intraperitoneal hemorrhage status post exploratory laparotomy, washout of peritoneal cavity and ileostomy on 08/02/2020. 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 Meyers Chest x-ray, ABGs and labs reviewed FiO2 titrated down from 60% to 40% We'll obtain Dopplers of the bilateral lower extremities Unable to rule out PE via CTA due to renal failure Continue bronchodilators every 4 hours Antibiotics per ID services The patient will most likely need trach and PEG tube placements We will continue to follow and make further recommendations based on his clinical status Critical care time 38 minutes I, the cosigning physician, performed a history & physical examination of the patient. Lungs sounds with basilar crackles. Maintaining good O2 saturations in the 90s on mechanical ventilator at 40% FiO2. I discussed the assessment and plan of care with my nurse practitioner, Olga Marin. I attest to the above note as dictated by her.
--- NOTE | 2020-08-18 11:38 | US ---
EXAMINATION TYPE: US venous doppler duplex LE DATE OF EXAM: 08/18/2020 11:32 AM COMPARISON: NONE CLINICAL HISTORY: Hypoxemia. Hypoxemia SIDE PERFORMED: bilateral TECHNIQUE: The lower extremity deep venous system is examined utilizing real time linear array sonog gabrielle with graded compression, doppler sonography and color-flow sonography. VESSELS IMAGED: Common Femoral Vein Deep Femoral Vein Greater Saphenous Vein * Femoral Vein Popliteal Vein Small Saphenous Vein * Proximal Calf Veins (* superficial vessels) Right Leg: no evidence of DVT Left Leg: no evidence of DVT Grayscale, color doppler, spectral doppler imaging performed of the deep veins of the bilateral lower extremities. There is normal flow, compressibility, vascular waveforms. IMPRESSION: No ultrasound evidence for acute DVT in either lower extremity.
[2020-08-18 12:07] LABS: Glucose,Whole Blood 170 mg/dL (75-99)
[2020-08-18] MEDS: HEPARIN SOD,PORK IN 0.45% NACL 25,000 UNIT in 0.45% NACL 1 250ML.BAG IV SCH (14:49)
[2020-08-18] MEDS: DEXTROSE 5% IN WATER 1,000 ML IV SCH (14:50)
--- NOTE | 2020-08-18 16:06 | PN ---
PROGRESS NOTE Patient is seen for followup for acute kidney injury. Last night, patient was reintubated. He had been weak and developed worsening hypoxia as well. The patient is also maintained on pressors. Urine output is currently at about 50 mL an hour. FiO2 is at 40%. The patient is sedated and on the vent. PHYSICAL EXAMINATION: Blood pressure this morning 97/51, heart rate 90 per minute. Patient is afebrile. Examination of the heart S1, S2. Examination of the lungs, bilateral breath sounds are heard. Abdomen is soft. Ileostomy intact. Exam of lower extremities shows no evidence of edema. LABS: Show sodium of 145, potassium 4.3, chloride 106, CO2 is 31, BUN 85, creatinine 2.3, hemoglobin 8.3 g/dL. ASSESSMENT: 1. Acute kidney injury. Renal function significantly worse from yesterday. Etiology is hypotension and some degree of volume depletion. The patient will be started on IV fluids. He is maintained on pressors. Currently patient is nonoliguric. Urine output maintained at about 50 mL an hour. 2. Hypernatremia associated with free water deficit status post increased free water down the feeding tube. 3. Acute hypoxic respiratory failure. The patient has been reintubated second time post coronary artery bypass surgery. He is maintained on antibiotics for pneumonia as well. 4. Status post coronary artery bypass surgery x2 on 07/18/2020. 5. Status post explorative laparotomy and bowel resection for ischemic bowel, status post ileostomy. 6. Metabolic acidosis, currently improved. 7. Hypervolemia, now resolved. Patient is currently hypovolemic. 8. Atrial fibrillation with controlled ventricular response. PLAN: Start IV fluids in the form of half-normal saline. Repeat labs in a.m. Continue with pressors. Continue antibiotics. MMODL / IJN: [id number] /
[2020-08-18 16:30] LABS: Glucose,Whole Blood 150 mg/dL (75-99)
--- NOTE | 2020-08-18 16:49 | P.PN ---
Subjective Progress Note Date: 08/18/20 (delayed cahrting seen at 1130) Principal diagnosis: chest pain Patient is a 79 yo male with CAD, HTN, DM 2 well controlled on metformin with last A1C 5.2, and hypothyroidism after partial thyroidectomy who underwent a 2 vessel CABG on 07/18/2020. He arrived to the ICU in typical fashion. He developed some air under the diaphragm on 07/[address] scan confirmed air with no definitive cause. He has developed a prolonged hospital course and this is hospital day # 31, and my first eval since 07/19/2020 Patient seen and examined at bedside. He is currently intubated and sedated General: non toxic, no distress, appears at stated age Derm: warm, dry Head: atraumatic, normocephalic, symmetric Eyes: no lid lag, anicteric sclera Mouth: no lip lesion, mucus membranes moist Cardiovascular: S1S2 reg, no murmur, positive posterior tibial pulse bilateral, Lungs: CTA bilateral, no rhonchi, no rales , no accessory muscle use, chest tube and mediastinal tubes in place Abdominal: soft, nontender to palpation diffusely no guarding, no appreciable o rganomegaly, wound vac in place Ext: no gross muscle atrophy, trace edema, no contractures Neuro: sedated on vent Psych: sedated on vent Patient was 79-year-old male status post 2 vessel coronary artery bypass grafting on 07/18/2020 currently being managed by cardiothoracic surgery. Acute hypoxic respiratory failure, b/l pleural effusion s/p L sided thoracentesis 08/15 - reintubated on 08/17 - management per pulmonary Intraperitoneal hemorrhage, s/p ex lap, washout of peritoneal cavity and i leostomy on 08/02 Ischemic small bowel with pneumonperitoneum on 07/24 - surgery recs - dapto, eraxis, zosyn - on TPN DM 2 - hold metformin - Inulin sliding scale - Follow blood sugars closely - A1C from 06/21/2020 5.2 P. A fib - anticoagulation once patient is improving - Amio - metoprolol Acute blood loss anemia and thrombocytopenia, anticipated outcome of surgery - follow CBC - transfuse as indicated COPD - on spiriva and advair at home Coronary artery disease -Status post coronary artery bypass grafting -Cardiothoracic and cardiology following HTN - meds per CT surgery - follow BP CONNOR on CKD stage III - Baseline cr 1.4-1.5 - suspect due to fluid shifts - follow Cr - Avoid additional nephrotoxic agents - follow renal function closely after surgery Hypothyroidism status post partial thyroidectomy - synthroid Morbid obesity with BMI 30.5 -Outpatient structured weight loss Chronic: ADDY Jacobs's Objective - Vital Signs Vital signs: Vital Signs Temp 97.7 F 08/18/20 08:00 Pulse 61 08/18/20 15:35 Resp 24 08/18/20 15:00 BP 102/51 08/18/20 00:30 Pulse Ox 97 08/18/20 15:00 Intake & Output 08/17/20 08/18/20 08/18/20 18:59 06:59 18:59 Intake Total 2268.674 2115.171 1426.357 Output Total 1395 1410 750 Balance 873.674 705.171 676.357 Weight 87.1 kg 86.1 kg 86.1 kg Intake: IV 310 350 338 Anidulafungin 100 mg In 100 100 Sodium Chloride 0.9% 100 ml @ 84 mls/hr IVPB DAILY [facility] Rx#:[id number] Dextrose 5% in Water 1, 220 120 000 ml @ 20 mls/hr IV . Q24H [facility] Rx#:[id number] Piperacillin-Tazobactam 3 200 100 100 .375 gm In Sodium Chloride 0.9% 100 ml @ 25 mls/hr IVPB Q8HR [facility] Rx# :[id number] Sodium Chloride 0.9% 1, 10 000 ml @ 10 mls/hr IV . Q24H [facility] Rx#:[id number] pressure bag 30 18 Intake, IV Titration 1368.674 625.171 358.357 Amount Albumin Human 5% 250 ml @ 250 0 mls/hr IVPB .[facility] Rx#:[id number] Albumin Human 5% 500 ml 500 In Empty Bag 1 bag @ 500 mls/hr IVPB ONCE [facility] Rx#: [id number] DAPTOmycin 650 mg In 50 Sodium Chloride 0.9% 50 ml @ 100 mls/hr IVPB Q24H [facility] Rx#:[id number] Dextrose 5% in Water 1, 80 20 000 ml @ 20 mls/hr IV . Q24H [facility] Rx#:[id number] Heparin Sod,Pork in 0.45% 46.0 140.929 88.002 NaCl 25,000 unit In 0.45 % NaCl 1 250ml.bag @ 11. 481 UNITS/KG/HR 10 mls/hr IV .Q24H [facility] Rx#: [id number] Insulin Regular 100 unit 0 In Sodium Chloride 0.9% 100 ml @ Per Protocol IV .Q0M [facility] Rx#:[id number] Norepinephrine 4 mg In 122.674 83.239 170.355 Sodium Chloride 0.9% 250 ml @ 0.05 MCG/KG/MIN 16. 593 mls/hr IV .[id number] [facility] Rx#:[id number] Sodium Chloride 0.9% 1, 170 000 ml @ 20 mls/hr IV . Q24H [facility] Rx#:[id number] propofoL 1,000 mg In 150 381.003 100.000 Empty Bag 1 bag @ Titrate IV .Q0M [facility] Rx#: [id number] Tube Feeding 360 540 280 Other 230 600 450 Output: Gastric Drainage 330 Urine 465 710 400 Stool 600 700 350 Other: Voiding Method Indwelling Catheter Indwelling Catheter Indwelling Catheter ABP, PAP, CO, CI - Last Documented Arterial Blood Pressure 93/38 Pulmonary Artery Pressure 33/14 Cardiac Output 6.7 Cardiac Index 3.1 - Labs CBC & Chem 7: 08/18/20 04:15 08/18/20 04:15 Labs: Abnormal Lab Results - Last 24 Hours (Table) 08/17/20 08/17/20 08/17/20 Range/Units 15:57 19:57 20:40 RBC (4.30-5.90) m/uL Hgb (13.0-17.5) gm/dL Hct (39.0-53.0) % RDW (11.5-15.5) % Lymphocytes # (1.0-4.8) k/uL APTT 79.8 H (22.0-30.0) sec ABG pCO2 (35-45) mmHg ABG pO2 (83-108) mmHg ABG HCO3 (21-25) mmol/L ABG Total CO2 (19-24) mmol/L ABG O2 Saturation (94-97) % Carbon Dioxide (22-30) mmol/L BUN (9-20) mg/dL Creatinine (0.66-1.25) mg/dL Glucose (74-99) mg/dL POC Glucose (mg/dL) 125 H 137 H (75-99) mg/dL Phosphorus (2.5-4.5) mg/dL Magnesium (1.6-2.3) mg/dL 08/17/20 08/18/20 08/18/20 Range/Units 23:30 04:12 04:15 RBC 2.73 L (4.30-5.90) m/uL Hgb 8.3 L D (13.0-17.5) gm/dL Hct 26.6 L (39.0-53.0) % RDW 16.2 H (11.5-15.5) % Lymphocytes # 0.4 L (1.0-4.8) k/uL APTT (22.0-30.0) sec ABG pCO2 (35-45) mmHg ABG pO2 (83-108) mmHg ABG HCO3 (21-25) mmol/L ABG Total CO2 (19-24) mmol/L ABG O2 Saturation (94-97) % Carbon Dioxide (22-30) mmol/L BUN (9-20) mg/dL Creatinine (0.66-1.25) mg/dL Glucose (74-99) mg/dL POC Glucose (mg/dL) 213 H 127 H (75-99) mg/dL Phosphorus (2.5-4.5) mg/dL Magnesium (1.6-2.3) mg/dL 08/18/20 08/18/20 08/18/20 Range/Units 04:15 04:15 05:40 RBC (4.30-5.90) m/uL Hgb (13.0-17.5) gm/dL Hct (39.0-53.0) % RDW (11.5-15.5) % Lymphocytes # (1.0-4.8) k/uL APTT 40.8 H (22.0-30.0) sec ABG pCO2 52 H (35-45) mmHg ABG pO2 168 H (83-108) mmHg ABG HCO3 31 H (21-25) mmol/L ABG Total CO2 33 H (19-24) mmol/L ABG O2 Saturation 99.5 H (94-97) % Carbon Dioxide 31 H (22-30) mmol/L BUN 85 H (9-20) mg/dL Creatinine 2.30 H (0.66-1.25) mg/dL Glucose 136 H (74-99) mg/dL POC Glucose (mg/dL) (75-99) mg/dL Phosphorus 5.2 H (2.5-4.5) mg/dL Magnesium 2.6 H (1.6-2.3) mg/dL 08/18/20 08/18/20 08/18/20 Range/Units 07:54 12:06 12:18 RBC (4.30-5.90) m/uL Hgb (13.0-17.5) gm/dL Hct (39.0-53.0) % RDW (11.5-15.5) % Lymphocytes # (1.0-4.8) k/uL APTT 41.1 H (22.0-30.0) sec ABG pCO2 (35-45) mmHg ABG pO2 (83-108) mmHg ABG HCO3 (21-25) mmol/L ABG Total CO2 (19-24) mmol/L ABG O2 Saturation (94-97) % Carbon Dioxide (22-30) mmol/L BUN (9-20) mg/dL Creatinine (0.66-1.25) mg/dL Glucose (74-99) mg/dL POC Glucose (mg/dL) 191 H 170 H (75-99) mg/dL Phosphorus (2.5-4.5) mg/dL Magnesium (1.6-2.3) mg/dL Microbiology - Last 24 Hours (Table) 08/17/20 21:50 Gram Stain - Preliminary Sputum Sputum Culture - Preliminary 08/15/20 21:11 Blood Culture - Preliminary Blood No Growth after 48 hours
--- NOTE | 2020-08-18 17:15 | PN ---
PROGRESS NOTE DATE OF SERVICE: 08/18/2020 REASON FOR FOLLOWUP: Leukocytosis and pneumonia and ischemic small bowel. INTERVAL HISTORY: The patient is currently afebrile. The patient is currently intubated on the vent. Hemodynamically he is stable. The patient's FiO2 is currently down to 40%. No significant purulent secretions in the ET or any diarrhea per the nursing staff. PHYSICAL EXAMINATION: Blood pressure 110/43 with a pulse of 50, temperature is 97.7. He is 95% on 40% FiO2. General description is an elderly male lying in bed in no distress. Respiratory system: Unlabored breathing, decreased breath sounds in the bases. No wheeze. Heart S1, S2. Regular rate and rhythm. ABDOMEN: Soft, no tenderness. LABS: Hemoglobin 8.8, white count 9.2 with BUN of 35, creatinine is 2.30. DIAGNOSTIC IMPRESSION AND PLAN: Patient with leukocytosis which is multifactorial in this patient who did have ischemic small bowel with concern for possible pneumonia. Sputum has been collected yesterday. Those will be followed. Currently covered with Zosyn, daptomycin and Eraxis. White count normal. Continue supportive care. MMODL / IJN: [id number] /
[2020-08-18 20:03] LABS: Glucose,Whole Blood 98 mg/dL (75-99)
[2020-08-19] MEDS: IPRATROPIUM-ALBUTEROL 3 ML NEB INHALATION SCH ×6 (00:39→18:57)
[2020-08-19] MEDS: NOREPINEPHRINE 4 MG in SODIUM CHLORIDE 0.9% 250 ML IV SCH ×2 (00:44→21:37)
[2020-08-19 01:11] LABS: Glucose,Whole Blood 171 mg/dL (75-99)
[2020-08-19] MEDS: INSULIN ASPART (NovoLOG) 100 UNIT/ML VIAL SQ SCH ×6 (01:11→20:12)
[2020-08-19] MEDS: PIPERACILLIN-TAZOBACTAM 3.375 GM in SODIUM CHLORIDE 0.9% 100 ML IVPB SCH ×3 (01:12→16:35)
[2020-08-19 03:15] LABS: Anisocytosis Slight; Basophils % (A) 0 %; Eosinophils # (A) 0.3 k/uL (0-0.7); Eosinophils % (A) 4 %; HCT 27.7 % (39.0-53.0); HGB 8.4 gm/dL (13.0-17.5); Hypochromasia Marked; Lymphocytes # (A) 0.4 k/uL (1.0-4.8); Lymphocytes % (A) 5 %; MCH 29.5 pg (25.0-35.0); MCHC 30.3 g/dL (31.0-37.0); MCV 97.2 fL (80.0-100.0); Macrocytosis Slight; Mean Platelet Volume 8.3; Monocytes # (A) 0.5 k/uL (0-1.0); Monocytes % (A) 5 %; Neutrophils # (A) 7.3 k/uL (1.3-7.7); Neutrophils % (A) 85 %; Platelet Count 311 k/uL (150-450); RBC 2.85 m/uL (4.30-5.90); RDW 16.1 % (11.5-15.5); WBC 8.6 k/uL (3.8-10.6)
--- NOTE | 2020-08-19 03:31 | XR ---
EXAM: XR Chest, 1 View CLINICAL HISTORY: ITS.REASON XR Reason: possible pneumothroax TECHNIQUE: Frontal view of the chest. COMPARISON: 08/17/2020. FINDINGS: Lungs: Presumed subsegmental atelectasis at the left lung base be Patchy airspace disease in the mid lower lung zones. New patchy airspace disease right upper lobe possibly on the basis of developing pneumonia. Alternatively, finding may represent area of pulmonary edema. Pleural space: Moderate right pleural effusion. No pneumothorax is detected. Heart: Cardiomegaly per Mediastinum: Unremarkable. Bones/joints: Sternotomy wires are noted in place. Tubes, lines and devices: Endotracheal tube is noted in place with its tip at the thoracic inlet. NG tube is noted in place with tip below diaphragm. Right-sided PICC line is noted in place with its tip at the mid superior vena cava. IMPRESSION: 1. No pneumothorax is detected. 2. Stable right pleural effusion. 3. Endotracheal and NG tube are noted in place, unchanged. 4. New patchy airspace disease right upper lobe. 5. Probable worsening pulmonary edema right lower lobe.
[2020-08-19 04:23] LABS: Calcium 9.4 mg/dL (8.4-10.2); Magnesium 2.4 mg/dL (1.6-2.3); Potassium 3.8 mmol/L (3.5-5.1); Total Bilirubin 0.8 mg/dL (0.2-1.3); Total Protein 6.2 g/dL (6.3-8.2)
[2020-08-19 05:17] LABS: Glucose,Whole Blood 231 mg/dL (75-99)
[2020-08-19 05:24] LABS: ABG Base Excess 3.6 mmol/L; ABG HCO3 29 mmol/L (21-25); ABG Oxygen Saturation 97.7 % (94-97); ABG PCO2 46 mmHg (35-45); ABG PO2 87 mmHg (83-108); ABG TCO2 30 mmol/L (19-24); Allen Test Performed? Yes
[2020-08-19] MEDS ORDERED: POTASSIUM BICARBONATE/CIT AC 20 MEQ TABLET.EFF NG-TUBE SCH (07:00)
[2020-08-19] MEDS: FORMOTEROL FUMARATE 20 MCG/2 ML NEBU INHALATION SCH ×2 (07:31→18:57)
[2020-08-19] MEDS: BUDESONIDE 1 MG/2 ML NEBU INHALATION SCH ×2 (07:31→18:57)
--- NOTE | 2020-08-19 08:33 | P.PN ---
Subjective Progress Note Date: 08/19/20 Principal diagnosis: Ischemic bowel Patient is stable on the ventilator. No obvious discomfort. Low-dose Levophed. Tolerating bolus tube feeds. Good ostomy function. Objective - Vital Signs Vital signs: Vital Signs Temp 98.5 F 08/19/20 04:00 Pulse 62 08/19/20 07:47 Resp 24 08/19/20 07:00 BP 102/51 08/18/20 17:15 Pulse Ox 100 08/19/20 07:00 Intake & Output 08/18/20 08/19/20 08/19/20 18:59 06:59 18:59 Intake Total 2004.357 2432.074 187.689 Output Total 1525 1395 155 Balance 062.426 8807.074 32.689 Weight 86.1 kg 88 kg Intake: IV 616 1146 116 0.45 140 770 70 Anidulafungin 100 mg In 100 Sodium Chloride 0.9% 100 ml @ 84 mls/hr IVPB DAILY [facility] Rx#:[id number] Dextrose 5% in Water 1, 240 240 40 000 ml @ 20 mls/hr IV . Q24H [facility] Rx#:[id number] Piperacillin-Tazobactam 3 100 100 .375 gm In Sodium Chloride 0.9% 100 ml @ 25 mls/hr IVPB Q8HR [facility] Rx# :[id number] pressure bag 36 36 6 Intake, IV Titration 358.357 386.074 71.689 Amount Heparin Sod,Pork in 0.45% 88.002 NaCl 25,000 unit In 0.45 % NaCl 1 250ml.bag @ 11. 481 UNITS/KG/HR 10 mls/hr IV .Q24H [facility] Rx#: [id number] Norepinephrine 4 mg In 170.355 155.327 25.884 Sodium Chloride 0.9% 250 ml @ 0.05 MCG/KG/MIN 16. 593 mls/hr IV .[id number] [facility] Rx#:[id number] propofoL 1,000 mg In 100.000 230.747 45.805 Empty Bag 1 bag @ Titrate IV .Q0M [facility] Rx#: [id number] Tube Feeding 380 300 Other 650 600 Output: Urine 775 1095 155 Stool 750 Urine/Stool Mix 300 Other: Voiding Method Indwelling Catheter Indwelling Catheter ABP, PAP, CO, CI - Last Documented Arterial Blood Pressure 119/45 Pulmonary Artery Pressure 33/14 Cardiac Output 6.7 Cardiac Index 3.1 - Exam Abdomen: Soft, nondistended, wound VAC in place - Labs CBC & Chem 7: 08/19/20 03:00 08/19/20 03:00 Labs: Abnormal Lab Results - Last 24 Hours (Table) 08/18/20 08/18/20 08/18/20 Range/Units 12:06 12:18 16:28 RBC (4.30-5.90) m/uL Hgb (13.0-17.5) gm/dL Hct (39.0-53.0) % MCHC (31.0-37.0) g/dL RDW (11.5-15.5) % Lymphocytes # (1.0-4.8) k/uL APTT 41.1 H (22.0-30.0) sec D-Dimer (<0.60) mg/L FEU ABG pCO2 (35-45) mmHg ABG HCO3 (21-25) mmol/L ABG Total CO2 (19-24) mmol/L ABG O2 Saturation (94-97) % BUN (9-20) mg/dL Creatinine (0.66-1.25) mg/dL Glucose (74-99) mg/dL POC Glucose (mg/dL) 170 H 150 H (75-99) mg/dL Magnesium (1.6-2.3) mg/dL Total Protein (6.3-8.2) g/dL Albumin (3.5-5.0) g/dL 08/18/20 08/19/20 08/19/20 Range/Units 19:45 01:09 03:00 RBC 2.85 L (4.30-5.90) m/uL Hgb 8.4 L (13.0-17.5) gm/dL Hct 27.7 L (39.0-53.0) % MCHC 30.3 L (31.0-37.0) g/dL RDW 16.1 H (11.5-15.5) % Lymphocytes # 0.4 L (1.0-4.8) k/uL APTT 58.5 H (22.0-30.0) sec D-Dimer (<0.60) mg/L FEU ABG pCO2 (35-45) mmHg ABG HCO3 (21-25) mmol/L ABG Total CO2 (19-24) mmol/L ABG O2 Saturation (94-97) % BUN (9-20) mg/dL Creatinine (0.66-1.25) mg/dL Glucose (74-99) mg/dL POC Glucose (mg/dL) 171 H (75-99) mg/dL Magnesium (1.6-2.3) mg/dL Total Protein (6.3-8.2) g/dL Albumin (3.5-5.0) g/dL 08/19/20 08/19/20 08/19/20 Range/Units 03:00 03:00 03:00 RBC (4.30-5.90) m/uL Hgb (13.0-17.5) gm/dL Hct (39.0-53.0) % MCHC (31.0-37.0) g/dL RDW (11.5-15.5) % Lymphocytes # (1.0-4.8) k/uL APTT 57.5 H (22.0-30.0) sec D-Dimer 1.79 H (<0.60) mg/L FEU ABG pCO2 (35-45) mmHg ABG HCO3 (21-25) mmol/L ABG Total CO2 (19-24) mmol/L ABG O2 Saturation (94-97) % BUN 72 H (9-20) mg/dL Creatinine 1.78 H (0.66-1.25) mg/dL Glucose 174 H (74-99) mg/dL POC Glucose (mg/dL) (75-99) mg/dL Magnesium 2.4 H (1.6-2.3) mg/dL Total Protein 6.2 L (6.3-8.2) g/dL Albumin 3.0 L (3.5-5.0) g/dL 08/19/20 08/19/20 Range/Units 05:15 05:18 RBC (4.30-5.90) m/uL Hgb (13.0-17.5) gm/dL Hct (39.0-53.0) % MCHC (31.0-37.0) g/dL RDW (11.5-15.5) % Lymphocytes # (1.0-4.8) k/uL APTT (22.0-30.0) sec D-Dimer (<0.60) mg/L FEU ABG pCO2 46 H (35-45) mmHg ABG HCO3 29 H (21-25) mmol/L ABG Total CO2 30 H (19-24) mmol/L ABG O2 Saturation 97.7 H (94-97) % BUN (9-20) mg/dL Creatinine (0.66-1.25) mg/dL Glucose (74-99) mg/dL POC Glucose (mg/dL) 231 H (75-99) mg/dL Magnesium (1.6-2.3) mg/dL Total Protein (6.3-8.2) g/dL Albumin (3.5-5.0) g/dL Microbiology - Last 24 Hours (Table) 08/18/20 15:43 Gram Stain - Preliminary Sputum Sputum Culture - Preliminary 08/15/20 21:11 Blood Culture - Preliminary Blood No Growth after 72 hours 08/17/20 21:50 Gram Stain - Preliminary Sputum Sputum Culture - Preliminary Assessment and Plan (1) Ischemic colitis, enteritis, or enterocolitis Narrative/Plan: Patient remains on the ventilator. Final decision from family regarding tracheostomy pending. Continued bolus tube feeds. Continue weaning pressors. Continue supportive care. Current Visit: Yes Status: Acute Code(s): K55.9 - VASCULAR DISORDER OF INTESTINE, UNSPECIFIED SNOMED Code(s): 90081095
--- NOTE | 2020-08-19 08:48 | P.PN ---
Subjective Progress Note Date: 08/19/20 Principal diagnosis: Coronary artery disease and status post CABG This is a 80-year-old gentleman with coronary artery disease and status post CABG as well as paroxysmal atrial fibrillation as well as history of ischemic bowel and status post surgery. the patient was seen today August 192020. He remains intubated. Hemodynamically he is a stable and not on any vasopressors anymore. the chest x- ray was reviewed and seems to be showing a component of pulmonary edema. Objective - Vital Signs Vital signs: Vital Signs Temp 98.5 F 08/19/20 04:00 Pulse 62 08/19/20 07:47 Resp 24 08/19/20 07:00 BP 102/51 08/18/20 17:15 Pulse Ox 100 08/19/20 07:00 Intake & Output 08/18/20 08/19/20 08/19/20 18:59 06:59 18:59 Intake Total 2004.357 2432.074 187.689 Output Total 1525 1395 155 Balance 854.315 1709.074 32.689 Weight 86.1 kg 88 kg Intake: IV 616 1146 116 0.45 140 770 70 Anidulafungin 100 mg In 100 Sodium Chloride 0.9% 100 ml @ 84 mls/hr IVPB DAILY [facility] Rx#:[id number] Dextrose 5% in Water 1, 240 240 40 000 ml @ 20 mls/hr IV . Q24H [facility] Rx#:[id number] Piperacillin-Tazobactam 3 100 100 .375 gm In Sodium Chloride 0.9% 100 ml @ 25 mls/hr IVPB Q8HR [facility] Rx# :[id number] pressure bag 36 36 6 Intake, IV Titration 358.357 386.074 71.689 Amount Heparin Sod,Pork in 0.45% 88.002 NaCl 25,000 unit In 0.45 % NaCl 1 250ml.bag @ 11. 481 UNITS/KG/HR 10 mls/hr IV .Q24H [facility] Rx#: [id number] Norepinephrine 4 mg In 170.355 155.327 25.884 Sodium Chloride 0.9% 250 ml @ 0.05 MCG/KG/MIN 16. 593 mls/hr IV .[id number] [facility] Rx#:[id number] propofoL 1,000 mg In 100.000 230.747 45.805 Empty Bag 1 bag @ Titrate IV .Q0M [facility] Rx#: [id number] Tube Feeding 380 300 Other 650 600 Output: Urine 775 1095 155 Stool 750 Urine/Stool Mix 300 Other: Voiding Method Indwelling Catheter Indwelling Catheter ABP, PAP, CO, CI - Last Documented Arterial Blood Pressure 119/45 Pulmonary Artery Pressure 33/14 Cardiac Output 6.7 Cardiac Index 3.1 - Constitutional General appearance: Present: no acute distress - Respiratory Respiratory: bilateral: diminished - Cardiovascular Heart sounds: normal: S1, S2 - Labs CBC & Chem 7: 08/19/20 03:00 08/19/20 03:00 Labs: Abnormal Lab Results - Last 24 Hours (Table) 08/18/20 08/18/20 08/18/20 Range/Units 12:06 12:18 16:28 RBC (4.30-5.90) m/uL Hgb (13.0-17.5) gm/dL Hct (39.0-53.0) % MCHC (31.0-37.0) g/dL RDW (11.5-15.5) % Lymphocytes # (1.0-4.8) k/uL APTT 41.1 H (22.0-30.0) sec D-Dimer (<0.60) mg/L FEU ABG pCO2 (35-45) mmHg ABG HCO3 (21-25) mmol/L ABG Total CO2 (19-24) mmol/L ABG O2 Saturation (94-97) % BUN (9-20) mg/dL Creatinine (0.66-1.25) mg/dL Glucose (74-99) mg/dL POC Glucose (mg/dL) 170 H 150 H (75-99) mg/dL Magnesium (1.6-2.3) mg/dL Total Protein (6.3-8.2) g/dL Albumin (3.5-5.0) g/dL 08/18/20 08/19/20 08/19/20 Range/Units 19:45 01:09 03:00 RBC 2.85 L (4.30-5.90) m/uL Hgb 8.4 L (13.0-17.5) gm/dL Hct 27.7 L (39.0-53.0) % MCHC 30.3 L (31.0-37.0) g/dL RDW 16.1 H (11.5-15.5) % Lymphocytes # 0.4 L (1.0-4.8) k/uL APTT 58.5 H (22.0-30.0) sec D-Dimer (<0.60) mg/L FEU ABG pCO2 (35-45) mmHg ABG HCO3 (21-25) mmol/L ABG Total CO2 (19-24) mmol/L ABG O2 Saturation (94-97) % BUN (9-20) mg/dL Creatinine (0.66-1.25) mg/dL Glucose (74-99) mg/dL POC Glucose (mg/dL) 171 H (75-99) mg/dL Magnesium (1.6-2.3) mg/dL Total Protein (6.3-8.2) g/dL Albumin (3.5-5.0) g/dL 08/19/20 08/19/20 08/19/20 Range/Units 03:00 03:00 03:00 RBC (4.30-5.90) m/uL Hgb (13.0-17.5) gm/dL Hct (39.0-53.0) % MCHC (31.0-37.0) g/dL RDW (11.5-15.5) % Lymphocytes # (1.0-4.8) k/uL APTT 57.5 H (22.0-30.0) sec D-Dimer 1.79 H (<0.60) mg/L FEU ABG pCO2 (35-45) mmHg ABG HCO3 (21-25) mmol/L ABG Total CO2 (19-24) mmol/L ABG O2 Saturation (94-97) % BUN 72 H (9-20) mg/dL Creatinine 1.78 H (0.66-1.25) mg/dL Glucose 174 H (74-99) mg/dL POC Glucose (mg/dL) (75-99) mg/dL Magnesium 2.4 H (1.6-2.3) mg/dL Total Protein 6.2 L (6.3-8.2) g/dL Albumin 3.0 L (3.5-5.0) g/dL 08/19/20 08/19/20 Range/Units 05:15 05:18 RBC (4.30-5.90) m/uL Hgb (13.0-17.5) gm/dL Hct (39.0-53.0) % MCHC (31.0-37.0) g/dL RDW (11.5-15.5) % Lymphocytes # (1.0-4.8) k/uL APTT (22.0-30.0) sec D-Dimer (<0.60) mg/L FEU ABG pCO2 46 H (35-45) mmHg ABG HCO3 29 H (21-25) mmol/L ABG Total CO2 30 H (19-24) mmol/L ABG O2 Saturation 97.7 H (94-97) % BUN (9-20) mg/dL Creatinine (0.66-1.25) mg/dL Glucose (74-99) mg/dL POC Glucose (mg/dL) 231 H (75-99) mg/dL Magnesium (1.6-2.3) mg/dL Total Protein (6.3-8.2) g/dL Albumin (3.5-5.0) g/dL Microbiology - Last 24 Hours (Table) 08/18/20 15:43 Gram Stain - Preliminary Sputum Sputum Culture - Preliminary 08/15/20 21:11 Blood Culture - Preliminary Blood No Growth after 72 hours 08/17/20 21:50 Gram Stain - Preliminary Sputum Sputum Culture - Preliminary Assessment and Plan Assessment: Assessment #1 coronary artery disease and status post CABG #2 paroxysmal atrial fibrillation #3 multiple comorbid conditions Plan #1 continue the current medical regimen #2 consider giving the patient small dose of Lasix IV at 1 dose #3 continue monitor the kidney function and electrolytes #4 surgery is on the case #5 follow-up with the patient
--- NOTE | 2020-08-19 09:12 | P.PN ---
Subjective Progress Note Date: 08/19/20 Principal diagnosis: Symptomatic triple-vessel coronary artery disease, mild left ventricular dysfunction. Previuos medical history of stenting to his right coronary artery in 2002, hypertension, hyperlipidemia, hypothyroid status post partial thyroidectomy, previous tobacco dependence quit smoking 20 years ago, moderate chronic obstructive pulmonary disease with preoperative FEV1 of 56% of predicted value, bullous emphysema, remote history of pneumonia, type 2 diabetes mellitus with a preoperative hemoglobin A1c of 5.2%, chronic kidney disease stage III with a baseline creatinine of 1.4-1.5, family history of premature coronary artery disease with brother having had CABG at less than 50 years old. POD #32 double coronary artery bypass grafting using the left internal mammary artery to left anterior descending coronary artery, reverse greater saphenous vein graft from the aorta to the posterior descending coronary artery. Exclusion of the left atrial appendage using a 35 mm Atriclip, endoscopic harvesting of the right greater saphenous vein from the groin to above the ankle level, graft flow measurement using the [employer] system, intraoperative transesophageal echocardiogram and epi-aortic scanning. Postoperative acute blood loss anemia, expected outcome from hemodilution and cardiopulmonary bypass. Postoperative paroxysmal atrial fibrillation, unexpected but common outcome after open heart surgery. Pneumoperitoneum, unexpected Acute on chronic kidney disease secondary to ATN Pneumatosis of the small bowel POD #26 ischemic bowel, small bowel resection Acute hypoxic respiratory failure with reintubation, prolonged mechanical ventilation, unexpected Acute abdomen, intraperitoneal hemorrhage POD #17 Exploratory laparotomy, washout of peritoneal cavity, ileostomy with small bowel resection The patient is currently laying in bed in the intensive care unit in no acute distress. He did have a brief episode of hypoxemia last night, with movement for STAT CXR mucous plug was able to be aspirated, patient's hypoxemia resolved. Currently remains in NSR with heart rate in the high 50s to low 60s. NG tube in place, bolus tube feeding continues with good tolerance along with free water flushes. Remains on IV Eraxis, daptomyocin, Zosyn by Dr. Frederick. Afebrile for 24 hours, white blood cell count 8.6. New sputum culture sent 08/17/20 after intubation and again yesterday, preliminary Gram stain demonstrates rare gram- positive cocci. Sputum culture from 08/03/20 demonstrating aurora albicans, blood culture negative, CVC catheter tip removed 08/03/20 growing staph epidermis. Patient continues to have liquid light brown stool through ileostomy, 300mL in the last 12 hours, 1050 mL in the last 24 hours. Wound vac in place to mid abdominal incision, changed --. Continues on IV heparin for anticoagulation due to continued intermittent atrial fibrillation. Remains on low-dose levo although minimal amount. Currently sedated with propofol. No other new events Objective - Vital Signs Vital signs: Vital Signs Temp 98.5 F 08/19/20 04:00 Pulse 62 08/19/20 07:47 Resp 24 08/19/20 07:00 BP 102/51 08/18/20 17:15 Pulse Ox 100 08/19/20 07:00 Intake & Output 08/18/20 08/19/20 08/19/20 18:59 06:59 18:59 Intake Total 2004.357 2432.074 187.689 Output Total 1525 1395 155 Balance 895.149 4632.074 32.689 Weight 86.1 kg 88 kg Intake: IV 616 1146 116 0.45 140 770 70 Anidulafungin 100 mg In 100 Sodium Chloride 0.9% 100 ml @ 84 mls/hr IVPB DAILY [facility] Rx#:[id number] Dextrose 5% in Water 1, 240 240 40 000 ml @ 20 mls/hr IV . Q24H [facility] Rx#:[id number] Piperacillin-Tazobactam 3 100 100 .375 gm In Sodium Chloride 0.9% 100 ml @ 25 mls/hr IVPB Q8HR [facility] Rx# :[id number] pressure bag 36 36 6 Intake, IV Titration 358.357 386.074 71.689 Amount Heparin Sod,Pork in 0.45% 88.002 NaCl 25,000 unit In 0.45 % NaCl 1 250ml.bag @ 11. 481 UNITS/KG/HR 10 mls/hr IV .Q24H [facility] Rx#: [id number] Norepinephrine 4 mg In 170.355 155.327 25.884 Sodium Chloride 0.9% 250 ml @ 0.05 MCG/KG/MIN 16. 593 mls/hr IV .[id number] [facility] Rx#:[id number] propofoL 1,000 mg In 100.000 230.747 45.805 Empty Bag 1 bag @ Titrate IV .Q0M [facility] Rx#: [id number] Tube Feeding 380 300 Other 650 600 Output: Urine 775 1095 155 Stool 750 Urine/Stool Mix 300 Other: Voiding Method Indwelling Catheter Indwelling Catheter ABP, PAP, CO, CI - Last Documented Arterial Blood Pressure 119/45 Pulmonary Artery Pressure 33/14 Cardiac Output 6.7 Cardiac Index 3.1 - Constitutional General appearance: Present: cooperative, no acute distress - Respiratory Details: Lungs sounds diminished bilaterally with coarse breath sounds in the bases, right greater than left. Respirations even, non-labored on mechanical ventilation. Current settings assist control mode, FiO2 40%, tidal volume 450, respiratory rate 24, PEEP 5. ABGs this morning 7.4/46/87/29/97%/3.6 on 40% FiO2 with a PEEP of 5. 8.0 ET tube present, 23 at the lip. - Cardiovascular Details: S1, S2 present. Regular rate and rhythm, sinus rhythm on telemetry with rate in the high 50s to low 60s. Sternum stable. Palpable peripheral pulses bilaterally. Generalized trace upper extremity edema present. Heart hugger, antiembolism stockings, SCDs present. Right brachial PICC line present. Left radial arterial line present - Gastrointestinal Gastrointestinal Comment(s): Abdomen soft, nontender, nondistended. Active bowel sounds present. NG tube pr esent, continues with bolus tube feeding and free water flushes with minimal residual. Ileostomy present to RLQ, stoma pink and moist, positive light brown liquid stool, 300 mL in the last 12 hours, 1050 mL in the last 24 hours. - Genitourinary Genitourinary Comment(s): Villafana catheter present draining clear, yellow urine. Output 50-120 mL/h overnight, 1870 mL in the last 24 hours - Integumentary Integumentary Comment(s): Skin is warm and dry. Anterior chest incision well approximated and covered with dry intact dressing. Right lower extremity EVH site well approximated. Mid abdominal incision open, wound vac in place. Shear injury to shoulder blade healing. Stage II present to coccyx fold - Neurologic Neurologic Comment(s): Sedated with propofol on mechanical ventilation, does move all 4 extremities - Allied health notes Allied health notes reviewed: nursing - Labs CBC & Chem 7: 08/19/20 03:00 08/19/20 03:00 Labs: Abnormal Lab Results - Last 24 Hours (Table) 08/18/20 08/18/20 08/18/20 Range/Units 12:06 12:18 16:28 RBC (4.30-5.90) m/uL Hgb (13.0-17.5) gm/dL Hct (39.0-53.0) % MCHC (31.0-37.0) g/dL RDW (11.5-15.5) % Lymphocytes # (1.0-4.8) k/uL APTT 41.1 H (22.0-30.0) sec D-Dimer (<0.60) mg/L FEU ABG pCO2 (35-45) mmHg ABG HCO3 (21-25) mmol/L ABG Total CO2 (19-24) mmol/L ABG O2 Saturation (94-97) % BUN (9-20) mg/dL Creatinine (0.66-1.25) mg/dL Glucose (74-99) mg/dL POC Glucose (mg/dL) 170 H 150 H (75-99) mg/dL Magnesium (1.6-2.3) mg/dL Total Protein (6.3-8.2) g/dL Albumin (3.5-5.0) g/dL 08/18/20 08/19/20 08/19/20 Range/Units 19:45 01:09 03:00 RBC 2.85 L (4.30-5.90) m/uL Hgb 8.4 L (13.0-17.5) gm/dL Hct 27.7 L (39.0-53.0) % MCHC 30.3 L (31.0-37.0) g/dL RDW 16.1 H (11.5-15.5) % Lymphocytes # 0.4 L (1.0-4.8) k/uL APTT 58.5 H (22.0-30.0) sec D-Dimer (<0.60) mg/L FEU ABG pCO2 (35-45) mmHg ABG HCO3 (21-25) mmol/L ABG Total CO2 (19-24) mmol/L ABG O2 Saturation (94-97) % BUN (9-20) mg/dL Creatinine (0.66-1.25) mg/dL Glucose (74-99) mg/dL POC Glucose (mg/dL) 171 H (75-99) mg/dL Magnesium (1.6-2.3) mg/dL Total Protein (6.3-8.2) g/dL Albumin (3.5-5.0) g/dL 08/19/20 08/19/20 08/19/20 Range/Units 03:00 03:00 03:00 RBC (4.30-5.90) m/uL Hgb (13.0-17.5) gm/dL Hct (39.0-53.0) % MCHC (31.0-37.0) g/dL RDW (11.5-15.5) % Lymphocytes # (1.0-4.8) k/uL APTT 57.5 H (22.0-30.0) sec D-Dimer 1.79 H (<0.60) mg/L FEU ABG pCO2 (35-45) mmHg ABG HCO3 (21-25) mmol/L ABG Total CO2 (19-24) mmol/L ABG O2 Saturation (94-97) % BUN 72 H (9-20) mg/dL Creatinine 1.78 H (0.66-1.25) mg/dL Glucose 174 H (74-99) mg/dL POC Glucose (mg/dL) (75-99) mg/dL Magnesium 2.4 H (1.6-2.3) mg/dL Total Protein 6.2 L (6.3-8.2) g/dL Albumin 3.0 L (3.5-5.0) g/dL 08/19/20 08/19/20 Range/Units 05:15 05:18 RBC (4.30-5.90) m/uL Hgb (13.0-17.5) gm/dL Hct (39.0-53.0) % MCHC (31.0-37.0) g/dL RDW (11.5-15.5) % Lymphocytes # (1.0-4.8) k/uL APTT (22.0-30.0) sec D-Dimer (<0.60) mg/L FEU ABG pCO2 46 H (35-45) mmHg ABG HCO3 29 H (21-25) mmol/L ABG Total CO2 30 H (19-24) mmol/L ABG O2 Saturation 97.7 H (94-97) % BUN (9-20) mg/dL Creatinine (0.66-1.25) mg/dL Glucose (74-99) mg/dL POC Glucose (mg/dL) 231 H (75-99) mg/dL Magnesium (1.6-2.3) mg/dL Total Protein (6.3-8.2) g/dL Albumin (3.5-5.0) g/dL Microbiology - Last 24 Hours (Table) 08/18/20 15:43 Gram Stain - Preliminary Sputum Sputum Culture - Preliminary 08/15/20 21:11 Blood Culture - Preliminary Blood No Growth after 72 hours 08/17/20 21:50 Gram Stain - Preliminary Sputum Sputum Culture - Preliminary - Imaging and Cardiology Chest x-ray: report reviewed, image reviewed Assessment and Plan Assessment: 1. Symptomatic triple-vessel coronary artery disease, status post 2 vessel CABG 2. Mild left ventricular dysfunction 3. Previuos history of stenting to his right coronary artery in 2002 4. Hypertension 5. Hyperlipidemia 6. Hypothyroid status post partial thyroidectomy 7. Previous tobacco dependence with bullous emphysema 8. Moderate chronic obstructive pulmonary disease with preoperative FEV1 of 56% of predicted value 9. Remote history of pneumonia 10. Type 2 diabetes mellitus with a preoperative hemoglobin A1c of 5.2% 11. Chronic kidney disease stage III with a baseline creatinine of 1.4-1.5 12. Family history of premature coronary artery disease with brother having had CABG at less than 50 years old 13. Postoperative acute blood loss anemia, expected outcome 14. Postoperative paroxysmal atrial fibrillation, unexpected, status post exclusion of the left atrial appendage 15. Pneumoperitoneum, unexpected 16. Acute on chronic kidney disease with hyponatremia, hyperkalemia 17. Pneumatosis of the small bowel, status post small bowel resection 18. Sputum culture positive for pseudomonas fluorescens, second sputum positive for aurora 19. Acute hypoxic respiratory failure with reintubation, prolonged mechanical ventilation 20. Acute abdomen, intraperitoneal hemorrhage, S/P exploratory laparotomy, washout of peritoneal cavity, ileostomy with small bowel resection 21. Generalized debility secondary to above Plan: 1. Continue low dose aspirin, beta apolinar. Wean levo as able 2. Continue amiodarone for afib. Continue IV heparin for now 3. Mechanical ventilation, bronchodilators, inhaled steroids per pulmonology management. Use as minimal sedation as possible 4. Will monitor daily labs and chest x-rays. 5. GI/DVT prophylaxis. 6. Pain control with current medication regimen. 7. Insulin management per primary care service 8. Continue bolus tube feedings, decrease free water flushes 9. Nephrology following. Avoid nephrotoxic agents. Lasix dosing/fluid man agement per nephrology recommendations 10. Strict accurate intake and output, daily weight 11. Continue IV Eraxis day #15, daptomycin day#15, re-added Zosyn, day 3 (previously on from 07/24/20-08/05/20) per infectious disease. 12. Wound vac to be changed -- 13. Plan is for tracheostomy placement by Dr. Cantor, PEG tube placement by Dr. Bynum tomorrow at 10 am. Discussed with daughter Corinne, risks and benefits reviewed, all questions answered, consent obtained. 14. DC planning continues, social work on board to assist. Anticipate DC to LTAC when able 15. More recommendations to follow based on patient's clinical course. Time with Patient: Greater than 30
[2020-08-19] MEDS: METOPROLOL TARTRATE 50 MG TAB PO SCH ×2 (09:25→20:09)
[2020-08-19] MEDS: AMIODARONE 200 MG TAB PO SCH ×2 (09:25→20:09)
[2020-08-19] MEDS: PANTOPRAZOLE 40 MG/10 ML VIAL IVP SCH ×2 (09:25→20:09)
[2020-08-19] MEDS: ANIDULAFUNGIN 100 MG in SODIUM CHLORIDE 0.9% 100 ML IVPB SCH (09:25)
[2020-08-19] MEDS: CHLORHEXIDINE GLUCONATE 15 ML CUP MUCOUS MEM SCH ×2 (09:25→20:09)
[2020-08-19] MEDS: LEVOTHYROXINE IVP 100 MCG/5 ML VIAL IV SCH (09:25)
[2020-08-19] MEDS: ASPIRIN 81 MG PO SCH (09:25)
--- NOTE | 2020-08-19 10:53 | P.PN ---
Subjective Progress Note Date: 08/19/20 Pt is intubated and sedated in no acute distress. TFs are at goal. Ileostomy output is good. UOP is good. Receiving FWF via OGT. On Vent: 450, 40%, PEEP 5. Objective - Vital Signs Vital signs: Vital Signs Temp 97.9 F 08/19/20 07:45 Pulse 61 08/19/20 10:30 Resp 25 H 08/19/20 10:30 BP 102/51 08/19/20 08:45 Pulse Ox 100 08/19/20 10:30 Intake & Output 08/18/20 08/19/20 08/19/20 18:59 06:59 18:59 Intake Total 2004.357 2432.074 633.689 Output Total 1525 1395 655 Balance 833.610 3509.074 -21.311 Weight 86.1 kg 88 kg Intake: IV 616 1146 362 0.45 140 770 70 Anidulafungin 100 mg In 100 100 Sodium Chloride 0.9% 100 ml @ 84 mls/hr IVPB DAILY [facility] Rx#:[id number] Dextrose 5% in Water 1, 240 240 80 000 ml @ 20 mls/hr IV . Q24H [facility] Rx#:[id number] Piperacillin-Tazobactam 3 100 100 100 .375 gm In Sodium Chloride 0.9% 100 ml @ 25 mls/hr IVPB Q8HR [facility] Rx# :[id number] pressure bag 36 36 12 Intake, IV Titration 358.357 386.074 71.689 Amount Heparin Sod,Pork in 0.45% 88.002 NaCl 25,000 unit In 0.45 % NaCl 1 250ml.bag @ 11. 481 UNITS/KG/HR 10 mls/hr IV .Q24H [facility] Rx#: [id number] Norepinephrine 4 mg In 170.355 155.327 25.884 Sodium Chloride 0.9% 250 ml @ 0.05 MCG/KG/MIN 16. 593 mls/hr IV .[id number] [facility] Rx#:[id number] propofoL 1,000 mg In 100.000 230.747 45.805 Empty Bag 1 bag @ Titrate IV .Q0M [facility] Rx#: [id number] Tube Feeding 380 300 Other 650 600 200 Output: Urine 775 1095 480 Stool 750 175 Urine/Stool Mix 300 Other: Voiding Method Indwelling Catheter Indwelling Catheter Indwelling Catheter # Voids 0 ABP, PAP, CO, CI - Last Documented Arterial Blood Pressure 114/45 Pulmonary Artery Pressure 33/14 Cardiac Output 6.7 Cardiac Index 3.1 - Exam Gen: intubated, sedated, in no distress HEENT: normocephalic, atraumatic, moist mucous membranes Resp: adequate lung expansion, symmetric breathing, no accessory muscle use CVS: good distal perfusion x 4, RRR, no murmurs, clicks, gallops GI: soft, NTTP, ND : no SPT, no CVAT, malagon catheter is present MSK: + pitting edema, no clubbing Neuro: non-focal, no sensory deficits, appropriate tone Lines: +PICC on right, +A-line on left, +breathing/OGT, +ileostomy, +malagon - Labs CBC & Chem 7: 08/19/20 03:00 08/19/20 03:00 Labs: Abnormal Lab Results - Last 24 Hours (Table) 08/18/20 08/18/20 08/18/20 Range/Units 12:06 12:18 16:28 RBC (4.30-5.90) m/uL Hgb (13.0-17.5) gm/dL Hct (39.0-53.0) % MCHC (31.0-37.0) g/dL RDW (11.5-15.5) % Lymphocytes # (1.0-4.8) k/uL APTT 41.1 H (22.0-30.0) sec D-Dimer (<0.60) mg/L FEU ABG pCO2 (35-45) mmHg ABG HCO3 (21-25) mmol/L ABG Total CO2 (19-24) mmol/L ABG O2 Saturation (94-97) % BUN (9-20) mg/dL Creatinine (0.66-1.25) mg/dL Glucose (74-99) mg/dL POC Glucose (mg/dL) 170 H 150 H (75-99) mg/dL Magnesium (1.6-2.3) mg/dL Total Protein (6.3-8.2) g/dL Albumin (3.5-5.0) g/dL 08/18/20 08/19/2008/19/21 Range/Units 19:45 01:09 03:00 RBC 2.85 L (4.30-5.90) m/uL Hgb 8.4 L (13.0-17.5) gm/dL Hct 27.7 L (39.0-53.0) % MCHC 30.3 L (31.0-37.0) g/dL RDW 16.1 H (11.5-15.5) % Lymphocytes # 0.4 L (1.0-4.8) k/uL APTT 58.5 H (22.0-30.0) sec D-Dimer (<0.60) mg/L FEU ABG pCO2 (35-45) mmHg ABG HCO3 (21-25) mmol/L ABG Total CO2 (19-24) mmol/L ABG O2 Saturation (94-97) % BUN (9-20) mg/dL Creatinine (0.66-1.25) mg/dL Glucose (74-99) mg/dL POC Glucose (mg/dL) 171 H (75-99) mg/dL Magnesium (1.6-2.3) mg/dL Total Protein (6.3-8.2) g/dL Albumin (3.5-5.0) g/dL 08/19/20 08/19/20 08/19/20 Range/Units 03:00 03:00 03:00 RBC (4.30-5.90) m/uL Hgb (13.0-17.5) gm/dL Hct (39.0-53.0) % MCHC (31.0-37.0) g/dL RDW (11.5-15.5) % Lymphocytes # (1.0-4.8) k/uL APTT 57.5 H (22.0-30.0) sec D-Dimer 1.79 H (<0.60) mg/L FEU ABG pCO2 (35-45) mmHg ABG HCO3 (21-25) mmol/L ABG Total CO2 (19-24) mmol/L ABG O2 Saturation (94-97) % BUN 72 H (9-20) mg/dL Creatinine 1.78 H (0.66-1.25) mg/dL Glucose 174 H (74-99) mg/dL POC Glucose (mg/dL) (75-99) mg/dL Magnesium 2.4 H (1.6-2.3) mg/dL Total Protein 6.2 L (6.3-8.2) g/dL Albumin 3.0 L (3.5-5.0) g/dL 08/19/20 08/19/20 Range/Units 05:15 05:18 RBC (4.30-5.90) m/uL Hgb (13.0-17.5) gm/dL Hct (39.0-53.0) % MCHC (31.0-37.0) g/dL RDW (11.5-15.5) % Lymphocytes # (1.0-4.8) k/uL APTT (22.0-30.0) sec D-Dimer (<0.60) mg/L FEU ABG pCO2 46 H (35-45) mmHg ABG HCO3 29 H (21-25) mmol/L ABG Total CO2 30 H (19-24) mmol/L ABG O2 Saturation 97.7 H (94-97) % BUN (9-20) mg/dL Creatinine (0.66-1.25) mg/dL Glucose (74-99) mg/dL POC Glucose (mg/dL) 231 H (75-99) mg/dL Magnesium (1.6-2.3) mg/dL Total Protein (6.3-8.2) g/dL Albumin (3.5-5.0) g/dL Microbiology - Last 24 Hours (Table) 08/18/20 15:43 Gram Stain - Preliminary Sputum Sputum Culture - Preliminary 08/15/20 21:11 Blood Culture - Preliminary Blood No Growth after 72 hours Assessment and Plan Assessment: 1. CAD s/p CABG with 2v bypass, PABLO to LAD, and SVG to posterior decending coronary artery 2. Paroxysmal Atrial Fibrillation, with RVR 3. 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 Pneumatosis, Ischemic Bowel, s/p small bowel resection 5. Acute Blood Loss Anemia, post-operative, resolved 6. Pneumoperitoneum secondary to chest tubes, resolving 7. CONNOR superimposed on CKD, stage III, worsening 8. Hypertension, essential 9. Hyperlipidemia 10. Type II DM, uncontrolled 11. Hypothyroidism 12. Obesity, BMI 30.5 13. Hyponatremia and Hyperkalemia 80 year old man with history of COPD, CKD III, HTN/HLD/CAD/DM, Obesity presented for symptomatic CAD and underwent 2v CABG with post-operative course complicated by respiratory failure secondary to COPD exacerbation, blood loss anemia, paroxysmal atrial fibrillation with RVR, and metabolic derangements. DM 2 - hold metformin - currently on insulin gtt - Blood sugars currently controlled, follow blood sugars closely - A1C from 06/21/2020 5.2, anticipate discharge home back on metformin which may be able to come off in the near future in the outpatient setting. Small Bowel Ischemia - surgery consult - POD #27 s/p resection/anastamosis, POD #17 anastamosis take down and diverting ileostomy - on daptomycin/eraxis with recovering WBC count - MRSA nares negative - on Alvimopan, consider off-titrating and switching to reglan if needed. A-fib with RVR On metoprolol 50mg BID On amiodarone 200mg BID Off cardizem gtt Eliquis held due to bleeding, now on heparin q8h for DVT PPx; can consider restarting eliquis now that hgb has been stable CONNOR on CKD stage III, resolved Baseline cr 1.4-1.5, Likely cardiorenal syndrome, patient received contrast earlier in the admission. Try to avoid IV fluids Recheck in am Avoid nephrotoxic meds Nephrology is following Acute hyponatremia Likely sec to renal failure Monitor Nephrology consulted, checking urine and plasma osmolalities as well as urine sodium. Hyperkalemia Kayexalate 15 g, follow K in a.m. Pneumoperitoneum suspect secondary to mediastinal chest tubes -Tube d/melody -Resolved. Constipation On Senokot, MiraLAX Had a bowel movement today Acute blood loss anemia and thrombocytopenia, anticipated outcome of surgery - follow CBC - transfuse as indicated COPD with acute exacerbation, resolved - steroid course completed - DuoNebs - on spiriva and advair at home Coronary artery disease -Status post coronary artery bypass grafting -Cardiothoracic and cardiology following HTN - meds per CT surgery - follow BP Hypothyroidism status post partial thyroidectomy - synthroid Morbid obesity with BMI 30.5 -Outpatient structured weight loss Chronic: ADDY Jacobs's Thank you for allowing us to participate in the care of this pleasant patient. Do not hesitate to contact us with questions. Someone can be reached from the [facility] hospitalist group all hours of the day at [phone] or via [employer].
--- NOTE | 2020-08-19 11:37 | P.PN ---
Subjective Progress Note Date: 08/19/20 Principal diagnosis: This 80-year-old male seen in consultation because of acute kidney injury, chronic kidney disease, was admitted and underwent coronary artery bypass graft complicated by ischemic bowel requiring further resection and ileostomy. Patient known with diabetes. He has been reintubated and currently is on small doses of levo fed. His acute kidney injury after improving deteriorated. His creatinine was 1.18 on 07/19/2020 at the time of his admission and worsened to 2.61 on 08/04/2020 and subsequently improved to 1.55 on 08/16/2020 and then went up to 2.3 as of 08/18/2020. Today it is improved to 1.78 with IV fluids. Is also known with Patrice scherer, on amiodarone by mouth He does have a NG tube draining, ileostomy draining His blood pressure is in the 114/45, 24-hour intake is 4436 output is 2920, urine output is 18 70 mL Objective - Vital Signs Vital signs: Vital Signs Temp 97.9 F 08/19/20 07:45 Pulse 62 08/19/20 11:23 Resp 25 H 08/19/20 10:30 BP 102/51 08/19/20 08:45 Pulse Ox 100 08/19/20 10:30 Intake & Output 08/18/20 08/19/20 08/19/20 18:59 06:59 18:59 Intake Total 2004.357 2432.074 733.689 Output Total 1525 1395 655 Balance 416.530 0192.074 78.689 Weight 86.1 kg 88 kg Intake: IV 616 1146 362 0.45 140 770 70 Anidulafungin 100 mg In 100 100 Sodium Chloride 0.9% 100 ml @ 84 mls/hr IVPB DAILY [facility] Rx#:[id number] Dextrose 5% in Water 1, 240 240 80 000 ml @ 20 mls/hr IV . Q24H [facility] Rx#:[id number] Piperacillin-Tazobactam 3 100 100 100 .375 gm In Sodium Chloride 0.9% 100 ml @ 25 mls/hr IVPB Q8HR [facility] Rx# :[id number] pressure bag 36 36 12 Intake, IV Titration 358.357 386.074 71.689 Amount Heparin Sod,Pork in 0.45% 88.002 NaCl 25,000 unit In 0.45 % NaCl 1 250ml.bag @ 11. 481 UNITS/KG/HR 10 mls/hr IV .Q24H [facility] Rx#: [id number] Norepinephrine 4 mg In 170.355 155.327 25.884 Sodium Chloride 0.9% 250 ml @ 0.05 MCG/KG/MIN 16. 593 mls/hr IV .[id number] [facility] Rx#:[id number] propofoL 1,000 mg In 100.000 230.747 45.805 Empty Bag 1 bag @ Titrate IV .Q0M [facility] Rx#: [id number] Tube Feeding 380 300 100 Other 650 600 200 Output: Urine 775 1095 480 Stool 750 175 Urine/Stool Mix 300 Other: Voiding Method Indwelling Catheter Indwelling Catheter Indwelling Catheter # Voids 0 ABP, PAP, CO, CI - Last Documented Arterial Blood Pressure 114/45 Pulmonary Artery Pressure 33/14 Cardiac Output 6.7 Cardiac Index 3.1 On examination he is sedated, on the vent No facial asymmetry noted Lungs are clear to auscultation fair air entry bilaterally Heart sounds unremarkable is in A. fib. Abdomen is soft Extremity exam was no edema Neurologically obtunded - Labs CBC & Chem 7: 08/19/20 03:00 08/19/20 03:00 Labs: Abnormal Lab Results - Last 24 Hours (Table) 08/18/20 08/18/20 08/18/20 Range/Units 12:06 12:18 16:28 RBC (4.30-5.90) m/uL Hgb (13.0-17.5) gm/dL Hct (39.0-53.0) % MCHC (31.0-37.0) g/dL RDW (11.5-15.5) % Lymphocytes # (1.0-4.8) k/uL APTT 41.1 H (22.0-30.0) sec D-Dimer (<0.60) mg/L FEU ABG pCO2 (35-45) mmHg ABG HCO3 (21-25) mmol/L ABG Total CO2 (19-24) mmol/L ABG O2 Saturation (94-97) % BUN (9-20) mg/dL Creatinine (0.66-1.25) mg/dL Glucose (74-99) mg/dL POC Glucose (mg/dL) 170 H 150 H (75-99) mg/dL Magnesium (1.6-2.3) mg/dL Total Protein (6.3-8.2) g/dL Albumin (3.5-5.0) g/dL 08/18/20 08/19/20 08/19/20 Range/Units 19:45 01:09 03:00 RBC 2.85 L (4.30-5.90) m/uL Hgb 8.4 L (13.0-17.5) gm/dL Hct 27.7 L (39.0-53.0) % MCHC 30.3 L (31.0-37.0) g/dL RDW 16.1 H (11.5-15.5) % Lymphocytes # 0.4 L (1.0-4.8) k/uL APTT 58.5 H (22.0-30.0) sec D-Dimer (<0.60) mg/L FEU ABG pCO2 (35-45) mmHg ABG HCO3 (21-25) mmol/L ABG Total CO2 (19-24) mmol/L ABG O2 Saturation (94-97) % BUN (9-20) mg/dL Creatinine (0.66-1.25) mg/dL Glucose (74-99) mg/dL POC Glucose (mg/dL) 171 H (75-99) mg/dL Magnesium (1.6-2.3) mg/dL Total Protein (6.3-8.2) g/dL Albumin (3.5-5.0) g/dL 08/19/20 08/19/20 08/19/20 Range/Units 03:00 03:00 03:00 RBC (4.30-5.90) m/uL Hgb (13.0-17.5) gm/dL Hct (39.0-53.0) % MCHC (31.0-37.0) g/dL RDW (11.5-15.5) % Lymphocytes # (1.0-4.8) k/uL APTT 57.5 H (22.0-30.0) sec D-Dimer 1.79 H (<0.60) mg/L FEU ABG pCO2 (35-45) mmHg ABG HCO3 (21-25) mmol/L ABG Total CO2 (19-24) mmol/L ABG O2 Saturation (94-97) % BUN 72 H (9-20) mg/dL Creatinine 1.78 H (0.66-1.25) mg/dL Glucose 174 H (74-99) mg/dL POC Glucose (mg/dL) (75-99) mg/dL Magnesium 2.4 H (1.6-2.3) mg/dL Total Protein 6.2 L (6.3-8.2) g/dL Albumin 3.0 L (3.5-5.0) g/dL 08/19/20 08/19/20 Range/Units 05:15 05:18 RBC (4.30-5.90) m/uL Hgb (13.0-17.5) gm/dL Hct (39.0-53.0) % MCHC (31.0-37.0) g/dL RDW (11.5-15.5) % Lymphocytes # (1.0-4.8) k/uL APTT (22.0-30.0) sec D-Dimer (<0.60) mg/L FEU ABG pCO2 46 H (35-45) mmHg ABG HCO3 29 H (21-25) mmol/L ABG Total CO2 30 H (19-24) mmol/L ABG O2 Saturation 97.7 H (94-97) % BUN (9-20) mg/dL Creatinine (0.66-1.25) mg/dL Glucose (74-99) mg/dL POC Glucose (mg/dL) 231 H (75-99) mg/dL Magnesium (1.6-2.3) mg/dL Total Protein (6.3-8.2) g/dL Albumin (3.5-5.0) g/dL Microbiology - Last 24 Hours (Table) 08/18/20 15:43 Gram Stain - Preliminary Sputum Sputum Culture - Preliminary 08/15/20 21:11 Blood Culture - Preliminary Blood No Growth after 72 hours Assessment and Plan Assessment: Impression 1. Acute kidney injury secondary to prerenal and ATN slowly improving renal function, creatinine improving again with IV fluids. Creatinine is 1.74 down from 2.3 yesterday 2. Chronic kidney disease Baseline creatinine 1.5 secondary to nephrosclerosis. 3. Status post coronary artery bypass graft 07/18/2020. 4. Anemia hemoglobin is 8.4 5. Status post ischemic bowel requiring resection and ileostomy on 08/02/2020 6. Diabetes mellitus 7. A. fib maintain on Amiodrone by mouth now. Recommendations 1. Agree with management. He needs to be maintained with no significant negative or positive balance given his blood pressure is reasonable and his FiO2 is stable at 40% the x-ray is more suggestive of failure right lower lobe infil trate and not congestive heart failure 2. Because of the blood sugar being high on D5W at 20 mL an hour, recommend stop it and use half normal saline at KVO
[2020-08-19 12:08] LABS: Glucose,Whole Blood 135 mg/dL (75-99)
[2020-08-19] MEDS: SODIUM CHLORIDE 0.45% 1,000 ML IV SCH (12:15)
--- NOTE | 2020-08-19 12:19 | P.PN ---
Subjective Progress Note Date: 08/19/20 Principal diagnosis: Coronary artery disease, status post three-vessel bypass grafting 79-year-old white male patient with past medical history of hypertension, hyperlipidemia, moderate to severe COPD with the baseline FEV1 of 56% of predicted who came in on 07/18/2020 for elective two-vessel bypass grafting with PABLO to LAD, and SVG to the PDA. He was seen in the intensive care unit following surgery, patient was successfully weaned and extubated from mechanical ventilator and under 6 hours following his OR exit, is currently awake and alert, sitting in the chair, he is currently on 2 L of oxygen, his pulse ox is 98%, hemodynamically he stable, blood pressure is 106/51, PA pressures 35/11, CVP is 8, no fever or chills, IV fluids including the 0.9 normal saline at a r ate of 30 ML per hour, insulin is 4.5 units per hour, no vasoactive drips. Today's chest x-ray shows a pneumoperitoneum with lucency present underneath the right hemidiaphragm. He has left pleural and mediastinal chest tube, and there has been 500 mL of serosanguineous output from the left pleural and 350 mL from the mediastinal chest tube in the last 24 hours. Is having some mild discomfort under the right rib cage, but no acute distress, abdomen is distended but soft, he is hemodynamically stable, he is in sinus mechanism, no nausea vomiting or diarrhea. CT of the abdomen and pelvis is pending today's labs have been reviewed, showing white blood cell count of 11.9, hemoglobin of 9, sodium is 133, the rest of the electrolytes were within normal limits, B1 is 25 creatinine is 1.18 The patient is seen today 07/20/2020 in follow-up in the intensive care unit. He is currently sitting up in a chair at the bedside. Awake and alert in no acute distress. This is postoperative day #2, two-vessel coronary artery bypass surgery. He is currently on 2 L/m per nasal cannula maintaining good O2 saturation in the 90s. He did have issues with atrial fibrillation and is currently on Cardizem drip at 10 mg per hour. He did receive IV amiodarone, initiated on by mouth today. 0.9 normal saline at KVO. Chest x-ray reveals removal of mediastinal drains. Right-sided pneumoperitoneum is no longer appreciated. Left-sided chest tube remains in place. Bibasilar patchy atelectasis remains. White count 18.2. Hemoglobin 8.9. Platelet count 99,000. Sodium 127. Potassium 5.0. Creatinine 1.37. He is pulling approximately 0218-9198 ML's on the incentive spirometer. Continued on bronchodilators. Heparin for DVT prophylaxis. Patient is seen today 07/22/2020 in follow-up on the intensive care unit. He is currently sitting up in a chair at the bedside. He is having complaints of increasing shortness of breath. He is doing less on his incentive spirometer. Chest x-ray reveals small right pleural effusion with adjacent atelectasis and/or consolidation. He is currently maintaining O2 saturations in the low 90s on 3 L/m per nasal cannula. Respiratory rate 32. He is afebrile. Blood pressure stable. He did have issues with atrial fibrillation with rapid ventricular response last evening. He is on a Cardizem drip at 10 mg per hour. He will be transitioned to Eliquis. On oral amiodarone. 0.9 normal saline at 20 ML's per hour. Currently in sinus rhythm. White count 16.8. Hemoglobin 8.8. Sodium 124. Potassium 5.3. Bicarb 20. Creatinine 1.62. AST 147. ALT 130. He is still having issues with hypoactive bowel and not passing flatus or bowel movement since surgery. He remains on bronchodilators and IV Solu-Medrol. The patient is seen today 07/23/2020 in follow-up in the intensive care unit. Postoperative day #5. He is awake and alert in no acute distress. Currently sitting up in a chair at the bedside. He is feeling stronger today. Less short of breath. Maintaining O2 saturations in the 90s on 3 L/m per nasal cannula. Chest x-ray continues to show a small right pleural effusion with prominent right greater than left basilar atelectasis. He is doing better with his incentive spirometer. White count 15.2. Hemoglobin 81.1. Sodium 124. Potassium 5.3. Creatinine 1.84. AST 136. ALT 193. Albumin 3.4. No IV fluids currently. Is continued on bronchodilators, IV Solu-Medrol, anticoagulated with Eliquis. Still has not had a bowel movement. The patient is seen today 08/09/2020 in follow-up in the intensive care unit. He was extubated again yesterday 08/08/2020. He is currently on 2 L/m per nasal cannula. TPN at 75 ML's per hour. 0.9#10 ML's per hour. Amiodarone at 0.25 mg/m. Insulin drip at 7 units per hour. His x-ray reveals some evidence of fluid volume overload. He is also quite edematous. He'll receive Lasix 40 mg IVP 1 today. He'll also be placed on BiPAP 07/22 on 40% FiO2 as he remains slightly tachypneic and shallow breathing. He is quite weak and debilitated today. He remains on bronchodilators. Eraxis. Daptomycin. Being nourished with lipid and TPN. The patient is seen today 08/11/2020 in follow-up in the intensive care unit. He is currently resting fairly comfortably in bed. Maintaining O2 saturation in the 90s on 2 L/m per nasal cannula. He did wear BiPAP last night at 12/5 and 28% FiO2. He is being nourished with TPN at 75 ML's per hour. He is on insulin at 5.5 units per hour. He remains on amiodarone at 0.25 mg/m. White count 10.0. Hemoglobin 9.2. Sodium 145. Potassium 4.0. Creatinine 1.50. Glucose 120. Chest xray reveals persistent bilateral lung opacities and pleural effusions. No significant change. Remains on DuoNeb inhalations, daptomycin, meropenem. Remains slightly tachycardic. Temperature 99.2 axillary. Needs increased encouragement regarding the use of the incentive spirometer. The patient is seen today 08/12/2020 in follow-up in the intensive care unit. He is awake and alert in no acute distress. He is maintaining O2 saturation in the 90s on 2 L/m per nasal cannula. He has TPN at 75 ML's per hour. 0.9 normal sitting at 10 MLS per hour. Insulin drip at 4 units per hour. Chest x-ray showed a questionable left apical pneumothorax. Computed tomography scan of the chest revealed advanced upper lung emphysema but no convincing pneumothorax. There is moderate bilateral pleural effusions with atelectatic collapse of the entire bilateral lower lobes. Small pericardial effusion. He continues to breathe quite shallow with tachypnea. He remains quite weak and debilitated. Currently afebrile. Hemodynamically stable. White count 10.8. Hemoglobin 9.8. Sodium 143. Potassium 4.1. Creatinine 1.44. Glucose 152. AST 49. ALT 62. Albumin 2.5. He remains on daptomycin, Eraxis, bronchodilators. The patient is seen today 08/13/2020 in follow-up in the intensive care unit. He is currently resting fairly comfortably in bed. He remains awake. He is still very weak and debilitated. Physical therapy is working with the patient. He continues with rapid shallow breathing despite encouraging him to take slower deeper breaths. He is maintaining good O2 saturation in the 90s on 2 L/m per nasal cannula. He has TPN for nourishment at 75 ML's per hour. 0.9#10 mL per hour. Insulin drip at 7 units per hour. Chest x-ray continued showing evidence of COPD and continue small to moderate effusions with adjacent atelectasis/ consolidations. He continues to need increased encouragement to utilize the incentive spirometer and cough and deep breathing exercises. White count 11.7. Hemoglobin 10.0. Sodium 144. Potassium 4.2. Creatinine 1.47. Glucose 151. He remains on DuoNeb inhalations, Pulmicort inhalations. Antibiotics in the form of daptomycin. Eraxis. Heparin for DVT prophylaxis. The patient is seen today 08/16/2020 in follow-up in the intensive care unit. Postoperative day #29 of his coronary artery bypass grafting. He is awake and alert in no acute distress. He is currently sitting up in a chair at the bedside. Maintaining O2 saturations up to 99% on 5 L/m per nasal cannula. He remains tachypneic. He has a respiratory pattern of rapid shallow breathing. Chest x-ray reveals COPD with continued small pleural effusions and patchy atelectasis in the bases. He is status post left-sided thoracentesis with 1.4 L of turbid blood tinged fluid removed yesterday. He is status post 5 units of p acked red blood cells this admission. Current hemoglobin 10.3. Platelet count 370. White count 13.5. Sodium 142. Potassium 4.7. Creatinine 1.55. He remains on bronchodilators, Mucomyst, Pulmicort. Insulin drip at 3.5 units per hour. Being nourished with Glucerna. TPN's at 35 mL per hour. 0.9 normal saline at 10 MLS per hour. The patient is seen today 08/17/2020 in follow-up in the intensive care unit. This is postoperative day #30 of his coronary artery bypass grafting. He is currently resting fairly comfortably in bed. He is on BiPAP 15/5 and 35% FiO2. He is 0.9 normal saline at 50 MLS per hour. He is awake. Chest x-ray continues to show stable bibasilar infiltrates. There is some improvement in the right- sided pleural effusion. White count 11.9. Hemoglobin 10.3. Platelets 285. Sodium 136. Potassium 5.4. Creatinine 1.99. Glucose 147. He remains on DuoNeb inhalations, Pulmicort and Perforomist inhalations, Eraxis, Zosyn, daptomycin. Follow-up blood cultures reveal no growth to date. The patient is seen today 08/18/2020 in follow-up in the intensive care unit. Yesterday he developed worsening shortness of breath despite being on BiPAP. He was quite tachypneic and had desaturations. He was subsequently reintubated and placed back on the mechanical ventilator. Assist-control rate of 24, tidal volume 450, FiO2 of 40% and a PEEP of 5. Morning blood gases reveal a P O2 of 168, pCO2 52, pH 7.38. This breath and FiO2 of 60%. Left radial arterial line placed yesterday. He remains on propofol at 40 mcg/kg/m. Heparin drip per weight-based protocol. 0.9 normal sitting at 25 ML's per hour. Norepinephrine at 4 mcg/m. He is being nourished with Nepro 180 MLS every 4 hours with free water flushes. Chest x-ray reveals evidence of congestive heart failure with mild cardiomegaly and small bilateral pleural effusions with mild central vascular congestion and associated basilar atelectasis. He is status post 5 units of packed red blood cells this admission. Current hemoglobin 8.3. White count 9.2. Sodium 145. Potassium 4.3. Creatinine 2.30. Glucose 136. Magnesium 2.6. He remains on bronchodilators, antibiotics in the form of Zosyn and daptomycin. Remains on Eraxis. Ostomy functioning. The patient is seen today 08/19/2020 in follow-up in the intensive care unit. He remains intubated on the mechanical ventilator. Assist-control mode. Rate of 24. Ativan for 50. FiO2 40% and a PEEP of 5. Morning blood gases revealed a pO2 of 87, pCO2 46, pH 7.39. He remains sedated on propofol at 35 mcg/kg/m. Requiring norepinephrine at 1.7 mcg/m. D5W at 20 mL per hour. Heparin drip weight-based protocol. Today's chest x-ray reveals no evidence of pneumothorax. There is a stable right pleural effusion. Endotracheal NG tube locations are good. There is a new patchy airspace disease in the right upper lobe. Some worsening pulmonary edema in the right lower lobe. He remains on DuoNeb inhalations, Pulmicort and Perforomist inhalations. He remains on antibiotics in the form of daptomycin, Eraxis, Zosyn. White count 8.6. Hemoglobin 8.4. D- dimer 1.79. Sodium 142. Potassium 3.8. Creatinine 1.78. Dopplers of the bila teral lower extremities negative for DVT. Plan is for possible tracheostomy tube placement tomorrow with Dr. Cantor. Objective - Vital Signs Vital signs: Vital Signs Temp 97.9 F 08/19/20 07:45 Pulse 60 08/19/20 11:33 Resp 30 H 08/19/20 11:30 BP 102/51 08/19/20 08:45 Pulse Ox 100 08/19/20 11:30 Intake & Output 08/18/20 08/19/20 08/19/20 18:59 06:59 18:59 Intake Total 2003.357 2432.074 776.158 Output Total 1525 1395 730 Balance 939.991 9586.074 46.158 Weight 86.1 kg 88 kg Intake: IV 616 1146 385 0.45 140 770 70 Anidulafungin 100 mg In 100 100 Sodium Chloride 0.9% 100 ml @ 84 mls/hr IVPB DAILY [facility] Rx#:[id number] Dextrose 5% in Water 1, 240 240 100 000 ml @ 20 mls/hr IV . Q24H [facility] Rx#:[id number] Piperacillin-Tazobactam 3 100 100 100 .375 gm In Sodium Chloride 0.9% 100 ml @ 25 mls/hr IVPB Q8HR [facility] Rx# :[id number] pressure bag 36 36 15 Intake, IV Titration 358.357 386.074 91.158 Amount Heparin Sod,Pork in 0.45% 88.002 NaCl 25,000 unit In 0.45 % NaCl 1 250ml.bag @ 11. 481 UNITS/KG/HR 10 mls/hr IV .Q24H [facility] Rx#: [id number] Norepinephrine 4 mg In 170.355 155.327 45.353 Sodium Chloride 0.9% 250 ml @ 0.05 MCG/KG/MIN 16. 593 mls/hr IV .[id number] [facility] Rx#:[id number] propofoL 1,000 mg In 100.000 230.747 45.805 Empty Bag 1 bag @ Titrate IV .Q0M [facility] Rx#: [id number] Tube Feeding 380 300 100 Other 650 600 200 Output: Urine 775 1095 555 Stool 750 175 Urine/Stool Mix 300 Other: Voiding Method Indwelling Catheter Indwelling Catheter Indwelling Catheter # Voids 0 ABP, PAP, CO, CI - Last Documented Arterial Blood Pressure 96/43 Pulmonary Artery Pressure 33/14 Cardiac Output 6.7 Cardiac Index 3.1 - Exam GENERAL EXAM: Intubated, sedated 79-year-old male patient, very weak and debilitated, on the mechanical ventilator at 40% FiO2, synchronous with the v entilator, in no apparent distress. HEAD: Normocephalic/atraumatic. EYES: Normal reaction of pupils, equal size. Conjunctiva pink, sclera white. NOSE: Clear with pink turbinates. THROAT: Oral endotracheal and gastric tube secured in place. No erythema or exudates. NECK: No masses, no JVD, no thyroid enlargement, no adenopathy. CHEST: No chest wall deformity. Symmetrical expansion. Midsternal incision is clean dry and intact LUNGS: Equal air entry with scattered crackles in the bases. CVS: Regular rate and rhythm, normal S1 and S2, no gallops, no murmurs, no rubs ABDOMEN: Abdominal incision with wound VAC in place. Ileostomy the right side of the abdomen EXTREMITIES: No clubbing, no edema, no cyanosis, 2+ pulses and upper and lower extremities. MUSCULOSKELETAL: Muscle strength and tone normal. SPINE: No scoliosis or deformity SKIN: No rashes CENTRAL NERVOUS SYSTEM: Intubated, sedated. Tone is normal in all 4 extremities. PSYCHIATRIC: Unable to assess. - Labs CBC & Chem 7: 08/19/20 03:00 08/19/20 03:00 Labs: Abnormal Lab Results - Last 24 Hours (Table) 08/18/20 08/18/20 08/18/20 Range/Units 12:18 16:28 19:45 RBC (4.30-5.90) m/uL Hgb (13.0-17.5) gm/dL Hct (39.0-53.0) % MCHC (31.0-37.0) g/dL RDW (11.5-15.5) % Lymphocytes # (1.0-4.8) k/uL APTT 41.1 H 58.5 H (22.0-30.0) sec D-Dimer (<0.60) mg/L FEU ABG pCO2 (35-45) mmHg ABG HCO3 (21-25) mmol/L ABG Total CO2 (19-24) mmol/L ABG O2 Saturation (94-97) % BUN (9-20) mg/dL Creatinine (0.66-1.25) mg/dL Glucose (74-99) mg/dL POC Glucose (mg/dL) 150 H (75-99) mg/dL Magnesium (1.6-2.3) mg/dL Total Protein (6.3-8.2) g/dL Albumin (3.5-5.0) g/dL 08/19/20 08/19/20 08/19/20 Range/Units 01:09 03:00 03:00 RBC 2.85 L (4.30-5.90) m/uL Hgb 8.4 L (13.0-17.5) gm/dL Hct 27.7 L (39.0-53.0) % MCHC 30.3 L (31.0-37.0) g/dL RDW 16.1 H (11.5-15.5) % Lymphocytes # 0.4 L (1.0-4.8) k/uL APTT (22.0-30.0) sec D-Dimer (<0.60) mg/L FEU ABG pCO2 (35-45) mmHg ABG HCO3 (21-25) mmol/L ABG Total CO2 (19-24) mmol/L ABG O2 Saturation (94-97) % BUN 72 H (9-20) mg/dL Creatinine 1.78 H (0.66-1.25) mg/dL Glucose 174 H (74-99) mg/dL POC Glucose (mg/dL) 171 H (75-99) mg/dL Magnesium 2.4 H (1.6-2.3) mg/dL Total Protein 6.2 L (6.3-8.2) g/dL Albumin 3.0 L (3.5-5.0) g/dL 08/19/20 08/19/20 08/19/20 Range/Units 03:00 03:00 05:15 RBC (4.30-5.90) m/uL Hgb (13.0-17.5) gm/dL Hct (39.0-53.0) % MCHC (31.0-37.0) g/dL RDW (11.5-15.5) % Lymphocytes # (1.0-4.8) k/uL APTT 57.5 H (22.0-30.0) sec D-Dimer 1.79 H (<0.60) mg/L FEU ABG pCO2 (35-45) mmHg ABG HCO3 (21-25) mmol/L ABG Total CO2 (19-24) mmol/L ABG O2 Saturation (94-97) % BUN (9-20) mg/dL Creatinine (0.66-1.25) mg/dL Glucose (74-99) mg/dL POC Glucose (mg/dL) 231 H (75-99) mg/dL Magnesium (1.6-2.3) mg/dL Total Protein (6.3-8.2) g/dL Albumin (3.5-5.0) g/dL 08/19/20 08/19/20 Range/Units 05:18 12:06 RBC (4.30-5.90) m/uL Hgb (13.0-17.5) gm/dL Hct (39.0-53.0) % MCHC (31.0-37.0) g/dL RDW (11.5-15.5) % Lymphocytes # (1.0-4.8) k/uL APTT (22.0-30.0) sec D-Dimer (<0.60) mg/L FEU ABG pCO2 46 H (35-45) mmHg ABG HCO3 29 H (21-25) mmol/L ABG Total CO2 30 H (19-24) mmol/L ABG O2 Saturation 97.7 H (94-97) % BUN (9-20) mg/dL Creatinine (0.66-1.25) mg/dL Glucose (74-99) mg/dL POC Glucose (mg/dL) 135 H (75-99) mg/dL Magnesium (1.6-2.3) mg/dL Total Protein (6.3-8.2) g/dL Albumin (3.5-5.0) g/dL Microbiology - Last 24 Hours (Table) 08/18/20 15:43 Gram Stain - Preliminary Sputum Sputum Culture - Preliminary 08/15/20 21:11 Blood Culture - Preliminary Blood No Growth after 72 hours Assessment and Plan Assessment: 1 Symptomatic coronary artery disease, status post two-vessel coronary artery bypass grafting with PABLO to the LAD, SVG to the PDA on 07/18/2020 2 Acute hypoxemic respiratory failure requiring reintubation and placed back on a mechanical ventilator on 08/17/2020 3 Postoperative atrial fibrillation with rapid ventricular response, improved. Remains on amiodarone 4 Intraperitoneal hemorrhage status post exploratory laparotomy, washout of pe ritoneal cavity and ileostomy on 08/02/2020. 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 Meyers Chest x-ray, ABGs and labs reviewed Dopplers of lower extremity negative for DVT. Continue bronchodilators every 4 hours Antibiotics per ID services The patient will need trach and PEG tube placements We will continue to follow and make further recommendations based on his clinical status Critical care time 35 minutes I, the cosigning physician, performed a history & physical examination of the patient. Lungs sounds with basilar crackles. Maintaining good O2 saturations in the 90s on mechanical ventilator at 40% FiO2. I discussed the assessment and plan of care with my nurse practitioner, Olga Marin. I attest to the above note as dictated by her.
[2020-08-19] MEDS: HEPARIN SOD,PORK IN 0.45% NACL 25,000 UNIT in 0.45% NACL 1 250ML.BAG IV SCH (15:30)
[2020-08-19 16:41] LABS: Glucose,Whole Blood 148 mg/dL (75-99)
[2020-08-19 17:38] LABS: Glucose,Whole Blood 157 mg/dL (75-99)
[2020-08-19 20:10] LABS: Glucose,Whole Blood 168 mg/dL (75-99)
--- NOTE | 2020-08-19 23:05 | PN ---
PROGRESS NOTE DATE OF SERVICE: 08/19/2020 REASON FOR FOLLOWUP: Ischemic small bowel and possible pneumonia. INTERVAL HISTORY: The patient is currently afebrile. The patient remains to be intubated on the vent. Hemodynamically he is stable. FiO2 is currently 40%. No significant purulent secretions in the ET or diarrhea reported by the nursing staff. PHYSICAL EXAMINATION: Blood pressure 113/46, pulse of 75, temperature 98, he is 97% on 40% FiO2. General description is an elderly male, intubated on the vent. Respiratory system: Unlabored breathing with decreased breath sounds in the base, no wheeze. Heart S1, S2. Regular rate and rhythm. Abdomen. Soft, no tenderness. LAB: Hemoglobin 8.4, white count 8.6, BUN of 72, creatinine 1.76. DIAGNOSTIC IMPRESSION AND PLAN: Patient with elevated white count which is multifactorial in this patient who did have ischemic small bowel status post resection and ileostomy, also with recurrent aspiration pneumonia. Patient is currently covered with Zosyn and Eraxis and white count normalized. Continue current medications. Monitor clinical course closely. MMODL / IJN: [id number] /
[2020-08-20 00:21] LABS: Glucose,Whole Blood 148 mg/dL (75-99)
[2020-08-20] MEDS: PIPERACILLIN-TAZOBACTAM 3.375 GM in SODIUM CHLORIDE 0.9% 100 ML IVPB SCH ×3 (00:26→16:58)
[2020-08-20] MEDS: INSULIN ASPART (NovoLOG) 100 UNIT/ML VIAL SQ SCH ×6 (00:26→21:43)
[2020-08-20] MEDS: NOREPINEPHRINE 4 MG in SODIUM CHLORIDE 0.9% 250 ML IV SCH ×2 (00:27→21:46)
[2020-08-20] MEDS: DEXTROSE 5%-0.45% NACL 1,000 ML IV SCH (00:27)
[2020-08-20] MEDS: IPRATROPIUM-ALBUTEROL 3 ML NEB INHALATION SCH ×7 (01:33→23:32)
[2020-08-20 04:05] LABS: Glucose,Whole Blood 163 mg/dL (75-99)
[2020-08-20 05:36] LABS: Basophils # (A) 0.1 k/uL (0-0.2); Basophils % (A) 1 %; Eosinophils # (A) 0.2 k/uL (0-0.7); Eosinophils % (A) 3 %; HCT 27.2 % (39.0-53.0); HGB 8.4 gm/dL (13.0-17.5); Hypochromasia Marked; Lymphocytes # (A) 0.3 k/uL (1.0-4.8); Lymphocytes % (A) 5 %; MCH 29.9 pg (25.0-35.0); MCV 96.5 fL (80.0-100.0); Mean Platelet Volume 9.7; Monocytes # (A) 0.4 k/uL (0-1.0); Monocytes % (A) 6 %; Neutrophils # (A) 5.6 k/uL (1.3-7.7); Neutrophils % (A) 83 %; Platelet Count 251 k/uL (150-450); RBC 2.82 m/uL (4.30-5.90); RDW 15.9 % (11.5-15.5); WBC 6.7 k/uL (3.8-10.6)
[2020-08-20 06:01] LABS: ABG Base Excess 2.8 mmol/L; ABG HCO3 27 mmol/L (21-25); ABG Oxygen Saturation 98.4 % (94-97); ABG PCO2 45 mmHg (35-45); ABG PO2 96 mmHg (83-108); Allen Test Performed? Yes
[2020-08-20 06:16] LABS: Albumin 2.8 g/dL (3.5-5.0); Calcium 9.6 mg/dL (8.4-10.2); Magnesium 2.4 mg/dL (1.6-2.3); Phosphorus 3.9 mg/dL (2.5-4.5); Potassium 4.6 mmol/L (3.5-5.1); Total Bilirubin 0.8 mg/dL (0.2-1.3); Total Protein 5.7 g/dL (6.3-8.2)
--- NOTE | 2020-08-20 07:14 | XR ---
EXAMINATION TYPE: XR chest 1V portable DATE OF EXAM: 08/20/2020 CLINICAL HISTORY: Difficulty breathing progress study. TECHNIQUE: Single AP portable semiupright view of the chest is obtained. COMPARISON: Chest x-ray from one day earlier and older studies FINDINGS: Stable right-sided PICC line. Stable endotracheal and orogastric tubes. Redemonstration of overlying sternal wires and mediastinal clips along with left atrial appendage clip. Background underlying emphysematous change with mild cardiomegaly and mild central vascular congestio n along with bibasilar opacities are all redemonstrated. Current study is suboptimal as does not incl ude entire lung bases. Osseous structures remain intact. IMPRESSION: Correlate for CHF exacerbation as there is mild cardiomegaly with small size bilateral pl eural effusions and mild central vascular congestion all redemonstrated. Persistent bibasilar acute i nfiltrate and/or atelectasis noted. Background chronic emphysematous change. No significant change fr om one day earlier.
[2020-08-20] MEDS: FORMOTEROL FUMARATE 20 MCG/2 ML NEBU INHALATION SCH ×2 (07:32→19:14)
[2020-08-20] MEDS: BUDESONIDE 1 MG/2 ML NEBU INHALATION SCH ×2 (07:32→19:14)
[2020-08-20 07:57] LABS: Glucose,Whole Blood 153 mg/dL (75-99)
[2020-08-20] MEDS: CHLORHEXIDINE GLUCONATE 15 ML CUP MUCOUS MEM SCH ×2 (07:57→21:45)
[2020-08-20] MEDS: METOPROLOL TARTRATE 50 MG TAB PO SCH (08:25)
[2020-08-20] MEDS: ASPIRIN 81 MG PO SCH (08:25)
[2020-08-20] MEDS: ANIDULAFUNGIN 100 MG in SODIUM CHLORIDE 0.9% 100 ML IVPB SCH (08:25)
[2020-08-20] MEDS: AMIODARONE 200 MG TAB PO SCH (08:25)
--- NOTE | 2020-08-20 08:51 | P.PN ---
Subjective Progress Note Date: 08/20/20 Principal diagnosis: Coronary artery disease and status post CABG This is a 80-year-old gentleman with coronary artery disease and status post CABG as well as paroxysmal atrial fibrillation as well as history of ischemic bowel and status post surgery. The patient was seen today August 202020. He is still intubated on mechanical ventilation. Hemodynamically he is requiring small doses of norepinephrine. He has been maintaining overall normal sinus mechanism was very brief episode of atrial tachycardia/atrial fibrillation. He is on metoprolol as well as amiodarone. He is on heparin IV as well. He is going to undergo today a trach and PEG tube. Objective - Vital Signs Vital signs: Vital Signs Temp 97.9 F 08/20/20 08:00 Pulse 69 08/20/20 08:00 Resp 28 H 08/20/20 08:00 BP 102/51 08/19/20 16:30 Pulse Ox 98 08/20/20 08:00 Intake & Output 08/19/20 08/20/20 08/20/20 18:59 06:59 18:59 Intake Total 2074.788 1360.768 324.922 Output Total 1500 1780 55 Balance 574.788 -419.232 269.922 Weight 87.2 kg Intake: IV 646 396 291 0.45 210 120 5 Anidulafungin 100 mg In 100 100 Sodium Chloride 0.9% 100 ml @ 84 mls/hr IVPB DAILY [facility] Rx#:[id number] Dextrose 5% in Water 1, 100 000 ml @ 20 mls/hr IV . Q24H [facility] Rx#:[id number] Dextrose 5%-0.45% NaCl 1, 240 80 000 ml @ 40 mls/hr IV . Q24H [facility] Rx#:[id number] Piperacillin-Tazobactam 3 200 100 .375 gm In Sodium Chloride 0.9% 100 ml @ 25 mls/hr IVPB Q8HR [facility] Rx# :[id number] pressure bag 36 36 6 Intake, IV Titration 528.788 364.768 33.922 Amount Heparin Sod,Pork in 0.45% 250 146.202 NaCl 25,000 unit In 0.45 % NaCl 1 250ml.bag @ 11. 481 UNITS/KG/HR 10 mls/hr IV .Q24H [facility] Rx#: [id number] Norepinephrine 4 mg In 78.788 50.662 7.522 Sodium Chloride 0.9% 250 ml @ 0.05 MCG/KG/MIN 16. 593 mls/hr IV .[id number] [facility] Rx#:[id number] propofoL 1,000 mg In 200.000 167.904 26.4 Empty Bag 1 bag @ Titrate IV .Q0M [facility] Rx#: [id number] Tube Feeding 300 200 Other 600 400 Output: Urine 925 1180 55 Stool 575 600 Other: Voiding Method Indwelling Catheter Indwelling Catheter Indwelling Catheter # Voids 0 0 ABP, PAP, CO, CI - Last Documented Arterial Blood Pressure 117/48 Pulmonary Artery Pressure 33/14 Cardiac Output 6.7 Cardiac Index 3.1 - Constitutional General appearance: Present: no acute distress - Respiratory Respiratory: bilateral: diminished - Cardiovascular Rhythm: regular - Labs CBC & Chem 7: 08/20/20 05:29 08/20/20 05:29 Labs: Abnormal Lab Results - Last 24 Hours (Table) 08/19/20 08/19/20 08/19/20 Range/Units 12:06 16:39 17:35 RBC (4.30-5.90) m/uL Hgb (13.0-17.5) gm/dL Hct (39.0-53.0) % RDW (11.5-15.5) % Lymphocytes # (1.0-4.8) k/uL APTT (22.0-30.0) sec ABG HCO3 (21-25) mmol/L ABG O2 Saturation (94-97) % BUN (9-20) mg/dL Creatinine (0.66-1.25) mg/dL Glucose (74-99) mg/dL POC Glucose (mg/dL) 135 H 148 H 157 H (75-99) mg/dL Magnesium (1.6-2.3) mg/dL Total Protein (6.3-8.2) g/dL Albumin (3.5-5.0) g/dL 08/19/20 08/20/20 08/20/20 Range/Units 20:08 00:19 03:54 RBC (4.30-5.90) m/uL Hgb (13.0-17.5) gm/dL Hct (39.0-53.0) % RDW (11.5-15.5) % Lymphocytes # (1.0-4.8) k/uL APTT (22.0-30.0) sec ABG HCO3 (21-25) mmol/L ABG O2 Saturation (94-97) % BUN (9-20) mg/dL Creatinine (0.66-1.25) mg/dL Glucose (74-99) mg/dL POC Glucose (mg/dL) 168 H 148 H 163 H (75-99) mg/dL Magnesium (1.6-2.3) mg/dL Total Protein (6.3-8.2) g/dL Albumin (3.5-5.0) g/dL 08/20/20 08/20/20 08/20/20 Range/Units 05:29 05:29 05:29 RBC 2.82 L (4.30-5.90) m/uL Hgb 8.4 L (13.0-17.5) gm/dL Hct 27.2 L (39.0-53.0) % RDW 15.9 H (11.5-15.5) % Lymphocytes # 0.3 L (1.0-4.8) k/uL APTT 41.4 H (22.0-30.0) sec ABG HCO3 (21-25) mmol/L ABG O2 Saturation (94-97) % BUN 51 H (9-20) mg/dL Creatinine 1.59 H (0.66-1.25) mg/dL Glucose 174 H (74-99) mg/dL POC Glucose (mg/dL) (75-99) mg/dL Magnesium 2.4 H (1.6-2.3) mg/dL Total Protein 5.7 L (6.3-8.2) g/dL Albumin 2.8 L (3.5-5.0) g/dL 08/20/20 08/20/20 Range/Units 05:52 07:55 RBC (4.30-5.90) m/uL Hgb (13.0-17.5) gm/dL Hct (39.0-53.0) % RDW (11.5-15.5) % Lymphocytes # (1.0-4.8) k/uL APTT (22.0-30.0) sec ABG HCO3 27 H (21-25) mmol/L ABG O2 Saturation 98.4 H (94-97) % BUN (9-20) mg/dL Creatinine (0.66-1.25) mg/dL Glucose (74-99) mg/dL POC Glucose (mg/dL) 153 H (75-99) mg/dL Magnesium (1.6-2.3) mg/dL Total Protein (6.3-8.2) g/dL Albumin (3.5-5.0) g/dL Microbiology - Last 24 Hours (Table) 08/17/20 21:50 Gram Stain - Final Sputum Sputum Culture - Final 08/15/20 21:11 Blood Culture - Preliminary Blood No Growth after 96 hours Assessment and Plan Assessment: Assessment #1 coronary artery disease and status post CABG #2 paroxysmal atrial fibrillation #3 multiple comorbid conditions Plan #1 continue the current medical regimen #2 follow-up with the patient
[2020-08-20] MEDS: LEVOTHYROXINE IVP 100 MCG/5 ML VIAL IV SCH (09:00)
[2020-08-20] MEDS: PANTOPRAZOLE 40 MG/10 ML VIAL IVP SCH ×2 (09:00→21:45)
--- NOTE | 2020-08-20 09:39 | P.PN ---
Subjective Progress Note Date: 08/20/20 Principal diagnosis: Symptomatic triple-vessel coronary artery disease, mild left ventricular dysfunction. Previuos medical history of stenting to his right coronary artery in 2002, hypertension, hyperlipidemia, hypothyroid status post partial thyroidectomy, previous tobacco dependence quit smoking 20 years ago, moderate chronic obstructive pulmonary disease with preoperative FEV1 of 56% of predicted value, bullous emphysema, remote history of pneumonia, type 2 diabetes mellitus with a preoperative hemoglobin A1c of 5.2%, chronic kidney disease stage III with a baseline creatinine of 1.4-1.5, family history of premature coronary artery disease with brother having had CABG at less than 50 years old. POD #33 double coronary artery bypass grafting using the left internal mammary artery to left anterior descending coronary artery, reverse greater saphenous vein graft from the aorta to the posterior descending coronary artery. Exclusion of the left atrial appendage using a 35 mm Atriclip, endoscopic harvesting of the right greater saphenous vein from the groin to above the ankle level, graft flow measurement using the [employer] system, intraoperative transesophageal echocardiogram and epi-aortic scanning. Postoperative acute blood loss anemia, expected outcome from hemodilution and cardiopulmonary bypass. Postoperative paroxysmal atrial fibrillation, unexpected but common outcome after open heart surgery. Pneumoperitoneum, unexpected Acute on chronic kidney disease secondary to ATN Pneumatosis of the small bowel POD #27 ischemic bowel, small bowel resection Acute hypoxic respiratory failure with reintubation, prolonged mechanical ventilation, unexpected Acute abdomen, intraperitoneal hemorrhage POD #18 Exploratory laparotomy, washout of peritoneal cavity, ileostomy with small bowel resection The patient is currently laying in bed in the intensive care unit in no acute distress. Currently remains in NSR with heart rate in the 60-70s. NG tube in place, NPO since midnight. Remains on IV Eraxis, daptomyocin, Zosyn by Dr. Frederick. Afebrile for 24 hours, white blood cell count 6.7. New sputum culture sent 08/17/20 after intubation and again yesterday, negative. Sputum culture from 08/03/20 demonstrating aurora albicans, blood culture negative, CVC catheter tip removed 08/03/20 growing staph epidermis. Patient continues to have liquid light brown stool through ileostomy, 1175 mL in the last [address] hours. Wound vac in place to mid abdominal incision, changed --. IV heparin on hold for surgery. Remains on low-dose levo although minimal amount. Currently sedated with propofol. Was given sedation holiday with patient nodding head appropriately, moving all extremities, and following commands. No other new events Objective - Vital Signs Vital signs: Vital Signs Temp 97.9 F 08/20/20 08:00 Pulse 108 H 08/20/20 09:00 Resp 27 H 08/20/20 09:00 BP 102/51 08/19/20 16:30 Pulse Ox 99 08/20/20 09:00 Intake & Output 08/19/20 08/20/20 08/20/20 18:59 06:59 18:59 Intake Total 2074.788 1360.768 372.922 Output Total 1500 1780 305 Balance 574.788 -419.232 67.922 Weight 87.2 kg Intake: IV 646 396 339 0.45 210 120 10 Anidulafungin 100 mg In 100 100 Sodium Chloride 0.9% 100 ml @ 84 mls/hr IVPB DAILY [facility] Rx#:[id number] Dextrose 5% in Water 1, 100 000 ml @ 20 mls/hr IV . Q24H [facility] Rx#:[id number] Dextrose 5%-0.45% NaCl 1, 240 120 000 ml @ 40 mls/hr IV . Q24H [facility] Rx#:[id number] Piperacillin-Tazobactam 3 200 100 .375 gm In Sodium Chloride 0.9% 100 ml @ 25 mls/hr IVPB Q8HR [facility] Rx# :[id number] pressure bag 36 36 9 Intake, IV Titration 528.788 364.768 33.922 Amount Heparin Sod,Pork in 0.45% 250 146.202 NaCl 25,000 unit In 0.45 % NaCl 1 250ml.bag @ 11. 481 UNITS/KG/HR 10 mls/hr IV .Q24H [facility] Rx#: [id number] Norepinephrine 4 mg In 78.788 50.662 7.522 Sodium Chloride 0.9% 250 ml @ 0.05 MCG/KG/MIN 16. 593 mls/hr IV .[id number] [facility] Rx#:[id number] propofoL 1,000 mg In 200.000 167.904 26.4 Empty Bag 1 bag @ Titrate IV .Q0M [facility] Rx#: [id number] Tube Feeding 300 200 Other 600 400 Output: Urine 925 1180 305 Stool 575 600 Other: Voiding Method Indwelling Catheter Indwelling Catheter Indwelling Catheter # Voids 0 0 ABP, PAP, CO, CI - Last Documented Arterial Blood Pressure 110/57 Pulmonary Artery Pressure 33/14 Cardiac Output 6.7 Cardiac Index 3.1 - Constitutional General appearance: Present: no acute distress - Respiratory Details: Lungs sounds diminished bilaterally with coarse breath sounds in the bases, right greater than left. Respirations even, non-labored on mechanical ventilation. Current settings assist control mode, FiO2 40%, tidal volume 450, respiratory rate 24, PEEP 5. ABGs this morning 7.4/45/95/27/98%/2.8 on 40% FiO2 with a PEEP of 5. 8.0 ET tube present, 23 at the lip. - Cardiovascular Details: S1, S2 present. Regular rate and rhythm, sinus rhythm on telemetry with rate in the 60-70s. Sternum stable. Palpable peripheral pulses bilaterally. Generali zed trace upper extremity edema present. Heart hugger, antiembolism stockings, SCDs present. Right brachial PICC line present. Left radial arterial line present - Gastrointestinal Gastrointestinal Comment(s): Abdomen soft, nontender, nondistended. Active bowel sounds present. NG tube present, clamped. Ileostomy present to RLQ, stoma pink and moist, positive light brown liquid stool, 600 mL in the last 12 hours, 1175 mL in the last 24 hours. - Genitourinary Genitourinary Comment(s): Villafana catheter present draining clear, yellow urine. Output 55-150 mL/h overnight, 2105 mL in the last 24 hours - Integumentary Integumentary Comment(s): Skin is warm and dry. Anterior chest incision well approximated and covered with dry intact dressing. Right lower extremity EVH site well approximated. Mid abdominal incision open, wound vac in place. Shear injury to shoulder blade healing. Stage II present to coccyx fold - Neurologic Neurologic Comment(s): Sedated with propofol on mechanical ventilation, does move all 4 extremities, follows commands off sedation - Allied health notes Allied health notes reviewed: nursing - Labs CBC & Chem 7: 08/20/20 05:29 08/20/20 05:29 Labs: Abnormal Lab Results - Last 24 Hours (Table) 08/19/20 08/19/20 08/19/20 Range/Units 12:06 16:39 17:35 RBC (4.30-5.90) m/uL Hgb (13.0-17.5) gm/dL Hct (39.0-53.0) % RDW (11.5-15.5) % Lymphocytes # (1.0-4.8) k/uL APTT (22.0-30.0) sec ABG HCO3 (21-25) mmol/L ABG O2 Saturation (94-97) % BUN (9-20) mg/dL Creatinine (0.66-1.25) mg/dL Glucose (74-99) mg/dL POC Glucose (mg/dL) 135 H 148 H 157 H (75-99) mg/dL Magnesium (1.6-2.3) mg/dL Total Protein (6.3-8.2) g/dL Albumin (3.5-5.0) g/dL 08/19/20 08/20/20 08/20/20 Range/Units 20:08 00:19 03:54 RBC (4.30-5.90) m/uL Hgb (13.0-17.5) gm/dL Hct (39.0-53.0) % RDW (11.5-15.5) % Lymphocytes # (1.0-4.8) k/uL APTT (22.0-30.0) sec ABG HCO3 (21-25) mmol/L ABG O2 Saturation (94-97) % BUN (9-20) mg/dL Creatinine (0.66-1.25) mg/dL Glucose (74-99) mg/dL POC Glucose (mg/dL) 168 H 148 H 163 H (75-99) mg/dL Magnesium (1.6-2.3) mg/dL Total Protein (6.3-8.2) g/dL Albumin (3.5-5.0) g/dL 08/20/20 08/20/20 08/20/20 Range/Units 05:29 05:29 05:29 RBC 2.82 L (4.30-5.90) m/uL Hgb 8.4 L (13.0-17.5) gm/dL Hct 27.2 L (39.0-53.0) % RDW 15.9 H (11.5-15.5) % Lymphocytes # 0.3 L (1.0-4.8) k/uL APTT 41.4 H (22.0-30.0) sec ABG HCO3 (21-25) mmol/L ABG O2 Saturation (94-97) % BUN 51 H (9-20) mg/dL Creatinine 1.59 H (0.66-1.25) mg/dL Glucose 174 H (74-99) mg/dL POC Glucose (mg/dL) (75-99) mg/dL Magnesium 2.4 H (1.6-2.3) mg/dL Total Protein 5.7 L (6.3-8.2) g/dL Albumin 2.8 L (3.5-5.0) g/dL 08/20/20 08/20/20 Range/Units 05:52 07:55 RBC (4.30-5.90) m/uL Hgb (13.0-17.5) gm/dL Hct (39.0-53.0) % RDW (11.5-15.5) % Lymphocytes # (1.0-4.8) k/uL APTT (22.0-30.0) sec ABG HCO3 27 H (21-25) mmol/L ABG O2 Saturation 98.4 H (94-97) % BUN (9-20) mg/dL Creatinine (0.66-1.25) mg/dL Glucose (74-99) mg/dL POC Glucose (mg/dL) 153 H (75-99) mg/dL Magnesium (1.6-2.3) mg/dL Total Protein (6.3-8.2) g/dL Albumin (3.5-5.0) g/dL Microbiology - Last 24 Hours (Table) 08/18/20 15:43 Gram Stain - Final Sputum Sputum Culture - Final 08/17/20 21:50 Gram Stain - Final Sputum Sputum Culture - Final 08/15/20 21:11 Blood Culture - Preliminary Blood No Growth after 96 hours - Imaging and Cardiology Chest x-ray: report reviewed, image reviewed Assessment and Plan Assessment: 1. Symptomatic triple-vessel coronary artery disease, status post 2 vessel CABG 2. Mild left ventricular dysfunction 3. Previuos history of stenting to his right coronary artery in 2002 4. Hypertension 5. Hyperlipidemia 6. Hypothyroid status post partial thyroidectomy 7. Previous tobacco dependence with bullous emphysema 8. Moderate chronic obstructive pulmonary disease with preoperative FEV1 of 56% of predicted value 9. Remote history of pneumonia 10. Type 2 diabetes mellitus with a preoperative hemoglobin A1c of 5.2% 11. Chronic kidney disease stage III with a baseline creatinine of 1.4-1.5 12. Family history of premature coronary artery disease with brother having had CABG at less than 50 years old 13. Postoperative acute blood loss anemia, expected outcome 14. Postoperative paroxysmal atrial fibrillation, unexpected, status post exclusion of the left atrial appendage 15. Pneumoperitoneum, unexpected 16. Acute on chronic kidney disease with hyponatremia, hyperkalemia 17. Pneumatosis of the small bowel, status post small bowel resection 18. Sputum culture positive for pseudomonas fluorescens, second sputum positive for aurora 19. Acute hypoxic respiratory failure with reintubation, prolonged mechanical ventilation 20. Acute abdomen, intraperitoneal hemorrhage, S/P exploratory laparotomy, washout of peritoneal cavity, ileostomy with small bowel resection 21. Generalized debility secondary to above Plan: 1. Continue low dose aspirin, beta apolinar. Wean levo as able 2. Continue amiodarone for afib. Hold IV heparin for surgery, will restart anticoagulation 24-48 hours after surgery 3. Mechanical ventilation, bronchodilators, inhaled steroids per pulmonology management. Use as minimal sedation as possible 4. Will monitor daily labs and chest x-rays. 5. GI/DVT prophylaxis. 6. Pain control with current medication regimen. 7. Insulin management per primary care service 8. Hold TF for surgery 9. Nephrology following. Avoid nephrotoxic agents. Lasix dosing/fluid management per nephrology recommendations 10. Strict accurate intake and output, daily weight 11. Continue IV Eraxis day #16, daptomycin day#16, re-added Zosyn, day 4 (previously on from 07/24/20-08/05/20) per infectious disease. 12. Wound vac to be changed -- 13. Plan is for tracheostomy placement by Dr. Cantor, PEG tube placement by Dr. Bynum today. Discussed with daughter Corinne, risks and benefits reviewed, all questions answered, consent obtained. 14. DC planning continues, social work on board to assist. Anticipate DC to LTAC when able 15. More recommendations to follow based on patient's clinical course. Time with Patient: Greater than 30
--- NOTE | 2020-08-20 09:53 | P.PN ---
Subjective Progress Note Date: 08/20/20 Principal diagnosis: CABG Doing ok, remains on low-dose levo although minimal amount. Currently sedated with propofol. Was given sedation holiday this am, was nodding head approp riately, moving all extremities, and following commands. No other new events. Objective - Vital Signs Vital signs: Vital Signs Temp 97.9 F 08/20/20 09:39 Pulse 108 H 08/20/20 09:00 Resp 27 H 08/20/20 09:39 BP 103/55 08/20/20 09:39 Pulse Ox 100 08/20/20 09:39 Intake & Output 08/19/20 08/20/20 08/20/20 18:59 06:59 18:59 Intake Total 2074.788 1360.768 388.076 Output Total 1500 1780 305 Balance 574.788 -419.232 83.076 Weight 87.2 kg Intake: IV 646 396 339 0.45 210 120 10 Anidulafungin 100 mg In 100 100 Sodium Chloride 0.9% 100 ml @ 84 mls/hr IVPB DAILY [facility] Rx#:[id number] Dextrose 5% in Water 1, 100 000 ml @ 20 mls/hr IV . Q24H [facility] Rx#:[id number] Dextrose 5%-0.45% NaCl 1, 240 120 000 ml @ 40 mls/hr IV . Q24H [facility] Rx#:[id number] Piperacillin-Tazobactam 3 200 100 .375 gm In Sodium Chloride 0.9% 100 ml @ 25 mls/hr IVPB Q8HR [facility] Rx# :[id number] pressure bag 36 36 9 Intake, IV Titration 528.788 364.768 49.076 Amount Heparin Sod,Pork in 0.45% 250 146.202 NaCl 25,000 unit In 0.45 % NaCl 1 250ml.bag @ 11. 481 UNITS/KG/HR 10 mls/hr IV .Q24H [facility] Rx#: [id number] Norepinephrine 4 mg In 78.788 50.662 22.676 Sodium Chloride 0.9% 250 ml @ 0.05 MCG/KG/MIN 16. 593 mls/hr IV .[id number] [facility] Rx#:[id number] propofoL 1,000 mg In 200.000 167.904 26.4 Empty Bag 1 bag @ Titrate IV .Q0M [facility] Rx#: [id number] Tube Feeding 300 200 Other 600 400 Output: Urine 925 1180 305 Stool 575 600 Other: Voiding Method Indwelling Catheter Indwelling Catheter Indwelling Catheter # Voids 0 0 ABP, PAP, CO, CI - Last Documented Arterial Blood Pressure 110/57 Pulmonary Artery Pressure 33/14 Cardiac Output 6.7 Cardiac Index 3.1 - Exam Gen: awake, alert. intubated HEENT: normocephalic, atraumatic, dry mucous membranes, + central line. Resp: adequate lung expansion, symmetric breathing, no accessory muscle use CVS: good distal perfusion x 4, RRR, no murmurs, clicks, gallops GI: soft, NTTP, ND. Ileostomy bag and wound VAC present. : no SPT, no CVAT, malagon catheter is present MSK: No edema, no clubbing Neuro: Generally weak, non-focal, no sensory deficits, appropriate tone - Labs CBC & Chem 7: 08/20/20 05:29 08/20/20 05:29 Labs: Abnormal Lab Results - Last 24 Hours (Table) 08/19/20 08/19/20 08/19/20 Range/Units 12:06 16:39 17:35 RBC (4.30-5.90) m/uL Hgb (13.0-17.5) gm/dL Hct (39.0-53.0) % RDW (11.5-15.5) % Lymphocytes # (1.0-4.8) k/uL APTT (22.0-30.0) sec ABG HCO3 (21-25) mmol/L ABG O2 Saturation (94-97) % BUN (9-20) mg/dL Creatinine (0.66-1.25) mg/dL Glucose (74-99) mg/dL POC Glucose (mg/dL) 135 H 148 H 157 H (75-99) mg/dL Magnesium (1.6-2.3) mg/dL Total Protein (6.3-8.2) g/dL Albumin (3.5-5.0) g/dL 08/19/20 08/20/20 08/20/20 Range/Units 20:08 00:19 03:54 RBC (4.30-5.90) m/uL Hgb (13.0-17.5) gm/dL Hct (39.0-53.0) % RDW (11.5-15.5) % Lymphocytes # (1.0-4.8) k/uL APTT (22.0-30.0) sec ABG HCO3 (21-25) mmol/L ABG O2 Saturation (94-97) % BUN (9-20) mg/dL Creatinine (0.66-1.25) mg/dL Glucose (74-99) mg/dL POC Glucose (mg/dL) 168 H 148 H 163 H (75-99) mg/dL Magnesium (1.6-2.3) mg/dL Total Protein (6.3-8.2) g/dL Albumin (3.5-5.0) g/dL 08/20/20 08/20/20 08/20/20 Range/Units 05:29 05:29 05:29 RBC 2.82 L (4.30-5.90) m/uL Hgb 8.4 L (13.0-17.5) gm/dL Hct 27.2 L (39.0-53.0) % RDW 15.9 H (11.5-15.5) % Lymphocytes # 0.3 L (1.0-4.8) k/uL APTT 41.4 H (22.0-30.0) sec ABG HCO3 (21-25) mmol/L ABG O2 Saturation (94-97) % BUN 51 H (9-20) mg/dL Creatinine 1.59 H (0.66-1.25) mg/dL Glucose 174 H (74-99) mg/dL POC Glucose (mg/dL) (75-99) mg/dL Magnesium 2.4 H (1.6-2.3) mg/dL Total Protein 5.7 L (6.3-8.2) g/dL Albumin 2.8 L (3.5-5.0) g/dL 08/20/20 08/20/20 Range/Units 05:52 07:55 RBC (4.30-5.90) m/uL Hgb (13.0-17.5) gm/dL Hct (39.0-53.0) % RDW (11.5-15.5) % Lymphocytes # (1.0-4.8) k/uL APTT (22.0-30.0) sec ABG HCO3 27 H (21-25) mmol/L ABG O2 Saturation 98.4 H (94-97) % BUN (9-20) mg/dL Creatinine (0.66-1.25) mg/dL Glucose (74-99) mg/dL POC Glucose (mg/dL) 153 H (75-99) mg/dL Magnesium (1.6-2.3) mg/dL Total Protein (6.3-8.2) g/dL Albumin (3.5-5.0) g/dL Microbiology - Last 24 Hours (Table) 08/18/20 15:43 Gram Stain - Final Sputum Sputum Culture - Final 08/17/20 21:50 Gram Stain - Final Sputum Sputum Culture - Final 08/15/20 21:11 Blood Culture - Preliminary Blood No Growth after 96 hours Assessment and Plan Plan: Acute hypoxic respiratory failure, b/l pleural effusion s/p L sided thoracentesis 08/15 - reintubated on 08/17 - management per pulmonary - Trach today Intraperitoneal hemorrhage, s/p ex lap, washout of peritoneal cavity and ileostomy on 08/02 Ischemic small bowel with pneumonperitoneum on 07/24 - surgery recs - dapto, eraxis, zosyn - on tube feeds--held today, going to surgery for PEG placement DM 2 - hold metformin - Inulin sliding scale - Follow blood sugars closely - A1C from 06/21/2020 5.2 P. A fib - anticoagulation once patient is improving - Amio - metoprolol Hypotension - Wean levo as able. Acute blood loss anemia and thrombocytopenia, anticipated outcome of surgery - follow CBC - transfuse as indicated COPD - on duonebs, pulmicort and formeterol. Coronary artery disease -Status post coronary artery bypass grafting -Cardiothoracic and cardiology following HTN - meds per CT surgery - follow BP CONNOR on CKD stage III - Baseline cr 1.4-1.5 - suspect due to fluid shifts - follow Cr - Avoid additional nephrotoxic agents - follow renal function closely after surgery Hypothyroidism status post partial thyroidectomy - synthroid Morbid obesity with BMI 30.5 -Outpatient structured weight loss Chronic: ADDY Jacobs's Disposition: Likely LTAC Anticipated discharge: 4-5 days.
[2020-08-20] MEDS ORDERED: PROPOFOL 10 MG/ML 20 ML VIAL IV ONE (11:02)
[2020-08-20] MEDS ORDERED: ONDANSETRON 4 MG/2 ML VIAL ONE (11:02)
[2020-08-20] MEDS ORDERED: ePHEDrine SULFATE/0.9% NACL/PF 50 MG/5 ML SYRINGE IV ONE (11:02)
[2020-08-20] MEDS ORDERED: IV FLUID CONTINUATION 1,000 ML IV ONE (11:02)
[2020-08-20] MEDS ORDERED: ROCURONIUM 10 MG/ML (10 ML VIAL) IV ONE (11:02)
[2020-08-20] MEDS ORDERED: fentaNYL (PF) 50 MCG/ML 2 ML AMP ONE (11:02)
--- NOTE | 2020-08-20 11:37 | P.PN ---
Subjective Progress Note Date: 08/20/20 Principal diagnosis: Coronary artery disease, status post three-vessel bypass grafting 79-year-old white male patient with past medical history of hypertension, hyperlipidemia, moderate to severe COPD with the baseline FEV1 of 56% of predicted who came in on 07/18/2020 for elective two-vessel bypass grafting with PABLO to LAD, and SVG to the PDA. He was seen in the intensive care unit following surgery, patient was successfully weaned and extubated from mechanical ventilator and under 6 hours following his OR exit, is currently awake and alert, sitting in the chair, he is currently on 2 L of oxygen, his pulse ox is 98%, hemodynamically he stable, blood pressure is 106/51, PA pressures 35/11, CVP is 8, no fever or chills, IV fluids including the 0.9 normal saline at a r ate of 30 ML per hour, insulin is 4.5 units per hour, no vasoactive drips. Today's chest x-ray shows a pneumoperitoneum with lucency present underneath the right hemidiaphragm. He has left pleural and mediastinal chest tube, and there has been 500 mL of serosanguineous output from the left pleural and 350 mL from the mediastinal chest tube in the last 24 hours. Is having some mild discomfort under the right rib cage, but no acute distress, abdomen is distended but soft, he is hemodynamically stable, he is in sinus mechanism, no nausea vomiting or diarrhea. CT of the abdomen and pelvis is pending today's labs have been reviewed, showing white blood cell count of 11.9, hemoglobin of 9, sodium is 133, the rest of the electrolytes were within normal limits, B1 is 25 creatinine is 1.18 The patient is seen today 07/20/2020 in follow-up in the intensive care unit. He is currently sitting up in a chair at the bedside. Awake and alert in no acute distress. This is postoperative day #2, two-vessel coronary artery bypass surgery. He is currently on 2 L/m per nasal cannula maintaining good O2 saturation in the 90s. He did have issues with atrial fibrillation and is currently on Cardizem drip at 10 mg per hour. He did receive IV amiodarone, initiated on by mouth today. 0.9 normal saline at KVO. Chest x-ray reveals removal of mediastinal drains. Right-sided pneumoperitoneum is no longer appreciated. Left-sided chest tube remains in place. Bibasilar patchy atelectasis remains. White count 18.2. Hemoglobin 8.9. Platelet count 99,000. Sodium 127. Potassium 5.0. Creatinine 1.37. He is pulling approximately 2107-9120 ML's on the incentive spirometer. Continued on bronchodilators. Heparin for DVT prophylaxis. Patient is seen today 07/22/2020 in follow-up on the intensive care unit. He is currently sitting up in a chair at the bedside. He is having complaints of increasing shortness of breath. He is doing less on his incentive spirometer. Chest x-ray reveals small right pleural effusion with adjacent atelectasis and/or consolidation. He is currently maintaining O2 saturations in the low 90s on 3 L/m per nasal cannula. Respiratory rate 32. He is afebrile. Blood pressure stable. He did have issues with atrial fibrillation with rapid ventricular response last evening. He is on a Cardizem drip at 10 mg per hour. He will be transitioned to Eliquis. On oral amiodarone. 0.9 normal saline at 20 ML's per hour. Currently in sinus rhythm. White count 16.8. Hemoglobin 8.8. Sodium 124. Potassium 5.3. Bicarb 20. Creatinine 1.62. AST 147. ALT 130. He is still having issues with hypoactive bowel and not passing flatus or bowel movement since surgery. He remains on bronchodilators and IV Solu-Medrol. The patient is seen today 07/23/2020 in follow-up in the intensive care unit. Postoperative day #5. He is awake and alert in no acute distress. Currently sitting up in a chair at the bedside. He is feeling stronger today. Less short of breath. Maintaining O2 saturations in the 90s on 3 L/m per nasal cannula. Chest x-ray continues to show a small right pleural effusion with prominent right greater than left basilar atelectasis. He is doing better with his incentive spirometer. White count 15.2. Hemoglobin 81.1. Sodium 124. Potassium 5.3. Creatinine 1.84. AST 136. ALT 193. Albumin 3.4. No IV fluids currently. Is continued on bronchodilators, IV Solu-Medrol, anticoagulated with Eliquis. Still has not had a bowel movement. The patient is seen today 08/09/2020 in follow-up in the intensive care unit. He was extubated again yesterday 08/08/2020. He is currently on 2 L/m per nasal cannula. TPN at 75 ML's per hour. 0.9#10 ML's per hour. Amiodarone at 0.25 mg/m. Insulin drip at 7 units per hour. His x-ray reveals some evidence of fluid volume overload. He is also quite edematous. He'll receive Lasix 40 mg IVP 1 today. He'll also be placed on BiPAP 07/22 on 40% FiO2 as he remains slightly tachypneic and shallow breathing. He is quite weak and debilitated today. He remains on bronchodilators. Eraxis. Daptomycin. Being nourished with lipid and TPN. The patient is seen today 08/11/2020 in follow-up in the intensive care unit. He is currently resting fairly comfortably in bed. Maintaining O2 saturation in the 90s on 2 L/m per nasal cannula. He did wear BiPAP last night at 12/5 and 28% FiO2. He is being nourished with TPN at 75 ML's per hour. He is on insulin at 5.5 units per hour. He remains on amiodarone at 0.25 mg/m. White count 10.0. Hemoglobin 9.2. Sodium 145. Potassium 4.0. Creatinine 1.50. Glucose 120. Chest xray reveals persistent bilateral lung opacities and pleural effusions. No significant change. Remains on DuoNeb inhalations, daptomycin, meropenem. Remains slightly tachycardic. Temperature 99.2 axillary. Needs increased encouragement regarding the use of the incentive spirometer. The patient is seen today 08/12/2020 in follow-up in the intensive care unit. He is awake and alert in no acute distress. He is maintaining O2 saturation in the 90s on 2 L/m per nasal cannula. He has TPN at 75 ML's per hour. 0.9 normal sitting at 10 MLS per hour. Insulin drip at 4 units per hour. Chest x-ray showed a questionable left apical pneumothorax. Computed tomography scan of the chest revealed advanced upper lung emphysema but no convincing pneumothorax. There is moderate bilateral pleural effusions with atelectatic collapse of the entire bilateral lower lobes. Small pericardial effusion. He continues to breathe quite shallow with tachypnea. He remains quite weak and debilitated. Currently afebrile. Hemodynamically stable. White count 10.8. Hemoglobin 9.8. Sodium 143. Potassium 4.1. Creatinine 1.44. Glucose 152. AST 49. ALT 62. Albumin 2.5. He remains on daptomycin, Eraxis, bronchodilators. The patient is seen today 08/13/2020 in follow-up in the intensive care unit. He is currently resting fairly comfortably in bed. He remains awake. He is still very weak and debilitated. Physical therapy is working with the patient. He continues with rapid shallow breathing despite encouraging him to take slower deeper breaths. He is maintaining good O2 saturation in the 90s on 2 L/m per nasal cannula. He has TPN for nourishment at 75 ML's per hour. 0.9#10 mL per hour. Insulin drip at 7 units per hour. Chest x-ray continued showing evidence of COPD and continue small to moderate effusions with adjacent atelectasis/ consolidations. He continues to need increased encouragement to utilize the incentive spirometer and cough and deep breathing exercises. White count 11.7. Hemoglobin 10.0. Sodium 144. Potassium 4.2. Creatinine 1.47. Glucose 151. He remains on DuoNeb inhalations, Pulmicort inhalations. Antibiotics in the form of daptomycin. Eraxis. Heparin for DVT prophylaxis. The patient is seen today 08/16/2020 in follow-up in the intensive care unit. Postoperative day #29 of his coronary artery bypass grafting. He is awake and alert in no acute distress. He is currently sitting up in a chair at the bedside. Maintaining O2 saturations up to 99% on 5 L/m per nasal cannula. He remains tachypneic. He has a respiratory pattern of rapid shallow breathing. Chest x-ray reveals COPD with continued small pleural effusions and patchy atelectasis in the bases. He is status post left-sided thoracentesis with 1.4 L of turbid blood tinged fluid removed yesterday. He is status post 5 units of p acked red blood cells this admission. Current hemoglobin 10.3. Platelet count 370. White count 13.5. Sodium 142. Potassium 4.7. Creatinine 1.55. He remains on bronchodilators, Mucomyst, Pulmicort. Insulin drip at 3.5 units per hour. Being nourished with Glucerna. TPN's at 35 mL per hour. 0.9 normal saline at 10 MLS per hour. The patient is seen today 08/17/2020 in follow-up in the intensive care unit. This is postoperative day #30 of his coronary artery bypass grafting. He is currently resting fairly comfortably in bed. He is on BiPAP 15/5 and 35% FiO2. He is 0.9 normal saline at 50 MLS per hour. He is awake. Chest x-ray continues to show stable bibasilar infiltrates. There is some improvement in the right- sided pleural effusion. White count 11.9. Hemoglobin 10.3. Platelets 285. Sodium 136. Potassium 5.4. Creatinine 1.99. Glucose 147. He remains on DuoNeb inhalations, Pulmicort and Perforomist inhalations, Eraxis, Zosyn, daptomycin. Follow-up blood cultures reveal no growth to date. The patient is seen today 08/18/2020 in follow-up in the intensive care unit. Yesterday he developed worsening shortness of breath despite being on BiPAP. He was quite tachypneic and had desaturations. He was subsequently reintubated and placed back on the mechanical ventilator. Assist-control rate of 24, tidal volume 450, FiO2 of 40% and a PEEP of 5. Morning blood gases reveal a P O2 of 168, pCO2 52, pH 7.38. This breath and FiO2 of 60%. Left radial arterial line placed yesterday. He remains on propofol at 40 mcg/kg/m. Heparin drip per weight-based protocol. 0.9 normal sitting at 25 ML's per hour. Norepinephrine at 4 mcg/m. He is being nourished with Nepro 180 MLS every 4 hours with free water flushes. Chest x-ray reveals evidence of congestive heart failure with mild cardiomegaly and small bilateral pleural effusions with mild central vascular congestion and associated basilar atelectasis. He is status post 5 units of packed red blood cells this admission. Current hemoglobin 8.3. White count 9.2. Sodium 145. Potassium 4.3. Creatinine 2.30. Glucose 136. Magnesium 2.6. He remains on bronchodilators, antibiotics in the form of Zosyn and daptomycin. Remains on Eraxis. Ostomy functioning. The patient is seen today 08/19/2020 in follow-up in the intensive care unit. He remains intubated on the mechanical ventilator. Assist-control mode. Rate of 24. Ativan for 50. FiO2 40% and a PEEP of 5. Morning blood gases revealed a pO2 of 87, pCO2 46, pH 7.39. He remains sedated on propofol at 35 mcg/kg/m. Requiring norepinephrine at 1.7 mcg/m. D5W at 20 mL per hour. Heparin drip weight-based protocol. Today's chest x-ray reveals no evidence of pneumothorax. There is a stable right pleural effusion. Endotracheal NG tube locations are good. There is a new patchy airspace disease in the right upper lobe. Some worsening pulmonary edema in the right lower lobe. He remains on DuoNeb inhalations, Pulmicort and Perforomist inhalations. He remains on antibiotics in the form of daptomycin, Eraxis, Zosyn. White count 8.6. Hemoglobin 8.4. D- dimer 1.79. Sodium 142. Potassium 3.8. Creatinine 1.78. Dopplers of the bila teral lower extremities negative for DVT. Plan is for possible tracheostomy tube placement tomorrow with Dr. Cantor. The patient is seen today 08/20/2020 in follow-up in the intensive care unit. He remains intubated on mechanical ventilator. Currently an assist-control mode with a rate of 24, tidal volume 450, FiO2 40% and a PEEP of 5. Morning blood gases reveal a pO2 of 96, pCO2 45, pH 7.40. He remains on norepinephrine at 0.03 mcg/kg/m. Propofol at 35 mcg/kg/m. D5 and half-normal saline at 40 ML's per hour. Tube feeding's are currently on hold. The plan is for tracheostomy tube insertion and possible PEG tube placement today. Chest x-ray shows evidence of mild fluid volume overload and mild cardiomegaly with small bilateral pleural effusions and mild central vascular congestion. Persistent basilar acute infiltrate/atelectasis noted. Back on chronic emphysematous changes. No significant change compared to yesterday. White count 6.7. Hemoglobin 8.4. Sodium 137. Potassium 4.6. Creatinine 1.59. Remains on Zosyn, daptomycin, and Eraxis. Objective - Vital Signs Vital signs: Vital Signs Temp 97.9 F 08/20/20 09:39 Pulse 64 08/20/20 10:45 Resp 26 H 08/20/20 10:45 BP 103/55 08/20/20 09:39 Pulse Ox 99 08/20/20 10:45 Intake & Output 08/19/20 08/20/20 08/20/20 18:59 06:59 18:59 Intake Total 2074.788 1360.768 552.246 Output Total 1500 1780 500 Balance 574.788 -419.232 52.246 Weight 87.2 kg Intake: IV 646 396 435 0.45 210 120 20 Anidulafungin 100 mg In 100 100 Sodium Chloride 0.9% 100 ml @ 84 mls/hr IVPB DAILY [facility] Rx#:[id number] Dextrose 5% in Water 1, 100 000 ml @ 20 mls/hr IV . Q24H [facility] Rx#:[id number] Dextrose 5%-0.45% NaCl 1, 240 200 000 ml @ 40 mls/hr IV . Q24H [facility] Rx#:[id number] Piperacillin-Tazobactam 3 200 100 .375 gm In Sodium Chloride 0.9% 100 ml @ 25 mls/hr IVPB Q8HR [facility] Rx# :[id number] pressure bag 36 36 15 Intake, IV Titration 528.788 364.768 117.246 Amount Heparin Sod,Pork in 0.45% 250 146.202 NaCl 25,000 unit In 0.45 % NaCl 1 250ml.bag @ 11. 481 UNITS/KG/HR 10 mls/hr IV .Q24H [facility] Rx#: [id number] Norepinephrine 4 mg In 78.788 50.662 31.637 Sodium Chloride 0.9% 250 ml @ 0.05 MCG/KG/MIN 16. 593 mls/hr IV .[id number] [facility] Rx#:[id number] propofoL 1,000 mg In 200.000 167.904 85.609 Empty Bag 1 bag @ Titrate IV .Q0M [facility] Rx#: [id number] Tube Feeding 300 200 Other 600 400 Output: Urine 925 1180 500 Stool 575 600 Other: Voiding Method Indwelling Catheter Indwelling Catheter Indwelling Catheter # Voids 0 0 ABP, PAP, CO, CI - Last Documented Arterial Blood Pressure 111/48 Pulmonary Artery Pressure 33/14 Cardiac Output 6.7 Cardiac Index 3.1 - Exam GENERAL EXAM: Intubated, sedated 79-year-old male patient, very weak and debilitated, on the mechanical ventilator at 40% FiO2, synchronous with the ventilator, in no apparent distress. HEAD: Normocephalic/atraumatic. EYES: Normal reaction of pupils, equal size. Conjunctiva pink, sclera white. NOSE: Clear with pink turbinates. THROAT: Oral endotracheal and gastric tube secured in place. No erythema or exudates. NECK: No masses, no JVD, no thyroid enlargement, no adenopathy. CHEST: No chest wall deformity. Symmetrical expansion. Midsternal incision is clean dry and intact LUNGS: Equal air entry with scattered crackles in the bases. CVS: Regular rate and rhythm, normal S1 and S2, no gallops, no murmurs, no rubs ABDOMEN: Abdominal incision with wound VAC in place. Ileostomy the right side of the abdomen EXTREMITIES: No clubbing, no edema, no cyanosis, 2+ pulses and upper and lower extremities. MUSCULOSKELETAL: Muscle strength and tone normal. SPINE: No scoliosis or deformity SKIN: No rashes CENTRAL NERVOUS SYSTEM: Intubated, sedated. Tone is normal in all 4 extremities. PSYCHIATRIC: Unable to assess. - Labs CBC & Chem 7: 08/20/20 05:29 08/20/20 05:29 Labs: Abnormal Lab Results - Last 24 Hours (Table) 08/19/20 08/19/20 08/19/20 Range/Units 12:06 16:39 17:35 RBC (4.30-5.90) m/uL Hgb (13.0-17.5) gm/dL Hct (39.0-53.0) % RDW (11.5-15.5) % Lymphocytes # (1.0-4.8) k/uL APTT (22.0-30.0) sec ABG HCO3 (21-25) mmol/L ABG O2 Saturation (94-97) % BUN (9-20) mg/dL Creatinine (0.66-1.25) mg/dL Glucose (74-99) mg/dL POC Glucose (mg/dL) 135 H 148 H 157 H (75-99) mg/dL Magnesium (1.6-2.3) mg/dL Total Protein (6.3-8.2) g/dL Albumin (3.5-5.0) g/dL 08/19/20 08/20/20 08/20/20 Range/Units 20:08 00:19 03:54 RBC (4.30-5.90) m/uL Hgb (13.0-17.5) gm/dL Hct (39.0-53.0) % RDW (11.5-15.5) % Lymphocytes # (1.0-4.8) k/uL APTT (22.0-30.0) sec ABG HCO3 (21-25) mmol/L ABG O2 Saturation (94-97) % BUN (9-20) mg/dL Creatinine (0.66-1.25) mg/dL Glucose (74-99) mg/dL POC Glucose (mg/dL) 168 H 148 H 163 H (75-99) mg/dL Magnesium (1.6-2.3) mg/dL Total Protein (6.3-8.2) g/dL Albumin (3.5-5.0) g/dL 08/20/20 08/20/20 08/20/20 Range/Units 05:29 05:29 05:29 RBC 2.82 L (4.30-5.90) m/uL Hgb 8.4 L (13.0-17.5) gm/dL Hct 27.2 L (39.0-53.0) % RDW 15.9 H (11.5-15.5) % Lymphocytes # 0.3 L (1.0-4.8) k/uL APTT 41.4 H (22.0-30.0) sec ABG HCO3 (21-25) mmol/L ABG O2 Saturation (94-97) % BUN 51 H (9-20) mg/dL Creatinine 1.59 H (0.66-1.25) mg/dL Glucose 174 H (74-99) mg/dL POC Glucose (mg/dL) (75-99) mg/dL Magnesium 2.4 H (1.6-2.3) mg/dL Total Protein 5.7 L (6.3-8.2) g/dL Albumin 2.8 L (3.5-5.0) g/dL 08/20/20 08/20/20 Range/Units 05:52 07:55 RBC (4.30-5.90) m/uL Hgb (13.0-17.5) gm/dL Hct (39.0-53.0) % RDW (11.5-15.5) % Lymphocytes # (1.0-4.8) k/uL APTT (22.0-30.0) sec ABG HCO3 27 H (21-25) mmol/L ABG O2 Saturation 98.4 H (94-97) % BUN (9-20) mg/dL Creatinine (0.66-1.25) mg/dL Glucose (74-99) mg/dL POC Glucose (mg/dL) 153 H (75-99) mg/dL Magnesium (1.6-2.3) mg/dL Total Protein (6.3-8.2) g/dL Albumin (3.5-5.0) g/dL Microbiology - Last 24 Hours (Table) 08/18/20 15:43 Gram Stain - Final Sputum Sputum Culture - Final 08/17/20 21:50 Gram Stain - Final Sputum Sputum Culture - Final 08/15/20 21:11 Blood Culture - Preliminary Blood No Growth after 96 hours Assessment and Plan Assessment: 1 Symptomatic coronary artery disease, status post two-vessel coronary artery bypass grafting with PABLO to the LAD, SVG to the PDA on 07/18/2020 2 Acute hypoxemic respiratory failure requiring reintubation and placed back on a mechanical ventilator on 08/17/2020 3 Postoperative atrial fibrillation with rapid ventricular response, improved. Remains on amiodarone 4 Intraperitoneal hemorrhage status post exploratory laparotomy, washout of peritoneal cavity and ileostomy on 08/02/2020. 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 Meyers Chest x-ray, ABGs and labs reviewed Continue bronchodilators every 4 hours Antibiotics per ID services Plan is for tracheostomy and PEG tube placement today We will continue to follow and make further recommendations based on his clinical status Critical care time 33 minutes I, the cosigning physician, performed a history & physical examination of the patient. Lungs sounds with basilar crackles. Maintaining good O2 saturations in the 90s on mechanical ventilator at 40% FiO2. I discussed the assessment and plan of care with my nurse practitioner, Olga Marin. I attest to the above note as dictated by her.
--- NOTE | 2020-08-20 12:20 | P.PCN ---
Date of Procedure: 08/20/20 Procedure(s) Performed: PREOPERATIVE DIAGNOSIS: Malnutrition, mechanical ventilation POSTOPERATIVE DIAGNOSIS: Same PROCEDURE: EGD with PEG tube placement SURGEON: Misa EBL: Minimal ANESTHESIA: Sedation COMPLICATIONS: None OPERATIVE PROCEDURE: The patient was placed in the supine position on the endoscopy table. The patient was sedated per anesthesia that time. The Olympus gastroscope was inserted into the oropharynx and passed under direct visualization to the region of the duodenum. No obstruction was seen. The pylorus was widely patent. The stomach was carefully inspected. The stomach was fully insufflated with air. The abdominal wall was inspected. The light was seen shining through the abdominal wall in the left upper quadrant. This site was chosen for PEG tube placement. The area was prepped in the usual sterile fashion. This area was then localized with lidocaine. No aspiration of air was identified upon initial advancement of the localizing needle into the stomach until the stomach was reached. A small vertical incision was made using the scalpel. The Seldinger needle was advanced into the lumen of the stomach the wire was advanced. The wire was grasped with an endoscopic snare. The wire was pulled through the oropharynx. The catheter was then threaded over the g uidewire and the guidewire and catheter were pulled anteriorly until the hub of the PEG tube catheter was seated against the anterior wall the stomach. The circular bolster was applied and tightened down. The endoscope was then readvanced into the stomach. There was a small amount of bleeding at the hilum of the PEG tube. The bolster was tightened slightly more and no further bleeding was seen. The catheter was cut appropriately. The dual port feeding adapter was applied. DISPOSITION: Stable to recovery room
--- NOTE | 2020-08-20 12:59 | OP ---
OPERATIVE REPORT DATE OF THE SURGERY: August 20, 2020. SURGEON: Dr. Estee Cantor. PREOPERATIVE DIAGNOSIS: Ventilator dependency. POSTOPERATIVE DIAGNOSIS: Ventilator dependency. PROCEDURE PERFORMED: Tracheostomy. INDICATION FOR SURGERY: Patient is around 1 month status post a coronary artery bypass grafting complicated by bowel necrosis requiring 2 laparotomies with bowel resection and ileostomy. He had been extubated twice, then needed to be reintubated over the course of his ICU stay. At this point, we decided to proceed with tracheostomy to improve his chance of being weaned off the ventilator and ensure long-term facility transfer. Benefits, risks, and alternatives were discussed with the family who agreed to proceed. DESCRIPTION OF THE PROCEDURE: The patient was brought from the ICU, mechanically ventilated, and sedated. General anesthesia was administered. Hemodynamically, he remained stable on very low dose of Levophed that he already was on. The neck was slightly extended. The neck and upper chest were prepped and draped using ChloraPrep. Proper draping placed. Patient received a dose of Zosyn. A circumvent linear incision was made one fingerbreadth above the suprasternal notch and carried through the platysma using Bovie at low level. Subsequently, dissection proceeded between the strap muscles in the midline. There were some adhesions there. Eventually, the proximal trachea was identified and was bit deviated to the right. The 2nd ring was selected and with a 15 blade, we incised a cruciate incision into this ring and took a small piece out of bed. The ET tube was withdrawn just proximal to this opening and with the tracheal dilator, we gently dilated that opening and subsequently a cuffed nonfenestrated #8 Shiley tracheostomy tube was inserted without difficulty and connected to the ventilator circuit. We had good end-tidal CO2 and good tidal volume. With that, the ET tube was withdrawn totally. The tracheostomy tube was affixed to the skin on either side with Prolene 2- 0, as well as the neck straps. The patient tolerated the procedure well. MMODL / IJN: [id number] /
[2020-08-20 13:05] LABS: Glucose,Whole Blood 125 mg/dL (75-99)
[2020-08-20 16:59] LABS: Glucose,Whole Blood 145 mg/dL (75-99)
[2020-08-20] MEDS: METOPROLOL TARTRATE 5 MG/5 ML VIAL IVP SCH (17:07)
[2020-08-20 21:25] LABS: Glucose,Whole Blood 128 mg/dL (75-99)
--- NOTE | 2020-08-20 22:14 | PN ---
PROGRESS NOTE DATE OF SERVICE: 08/20/2020. REASON FOR FOLLOW: Leukocytosis. INTERVAL HISTORY: The patient is currently afebrile. The patient is hemodynamically stable. FiO2 is currently stable on 40%. No significant purulent secretions through the ET. No diarrhea reported by the nursing staff. PHYSICAL EXAMINATION: Blood pressure 128/52 with a pulse of 53, temperature 98. He is 98% on 40% FiO2. General description is an elderly male lying in bed in no distress. Respiratory system: Unlabored breathing. Decreased breath sounds in the bases. No wheeze. Heart S1, S2. Regular rate and rhythm. ABDOMEN: Soft, no tenderness. LABS: Hemoglobin 8.4, white count 6.7, BUN 51, creatinine 1.59. DIAGNOSTIC IMPRESSION AND PLAN: Patient with elevated white count, multifactorial in this patient who did have ischemic small bowel status post resection now with a component of aspiration pneumonitis. Sputum has been negative for any resistant pathogen. The patient's white count normalized. Continue with Zosyn and Eraxis. Discontinue daptomycin. MMODL / IJN: [id number] /
[2020-08-21 00:13] LABS: Glucose,Whole Blood 148 mg/dL (75-99)
[2020-08-21] MEDS: METOPROLOL TARTRATE 5 MG/5 ML VIAL IVP SCH ×2 (00:33→07:50)
[2020-08-21] MEDS: PIPERACILLIN-TAZOBACTAM 3.375 GM in SODIUM CHLORIDE 0.9% 100 ML IVPB SCH ×4 (00:33→23:59)
[2020-08-21] MEDS: INSULIN ASPART (NovoLOG) 100 UNIT/ML VIAL SQ SCH ×6 (00:34→20:28)
[2020-08-21] MEDS: DEXTROSE 5%-0.45% NACL 1,000 ML IV SCH (00:34)
[2020-08-21] MEDS: IPRATROPIUM-ALBUTEROL 3 ML NEB INHALATION SCH ×6 (03:39→23:21)
[2020-08-21 03:48] LABS: Glucose,Whole Blood 126 mg/dL (75-99)
[2020-08-21 05:23] LABS: ABG Base Excess 1.6 mmol/L; ABG HCO3 27 mmol/L (21-25); ABG Oxygen Saturation 98.8 % (94-97); ABG PCO2 50 mmHg (35-45); ABG PH 7.35 (7.35-7.45); ABG PO2 103 mmHg (83-108); ABG TCO2 29 mmol/L (19-24); Allen Test Performed? Yes
[2020-08-21 07:07] LABS: Anisocytosis Slight; Basophils % (A) 1 %; Eosinophils # (A) 0.2 k/uL (0-0.7); Eosinophils % (A) 2 %; HCT 27.2 % (39.0-53.0); HGB 8.2 gm/dL (13.0-17.5); Hypochromasia Marked; Lymphocytes # (A) 0.3 k/uL (1.0-4.8); Lymphocytes % (A) 4 %; MCH 29.3 pg (25.0-35.0); MCHC 30.1 g/dL (31.0-37.0); MCV 97.6 fL (80.0-100.0); Macrocytosis Slight; Mean Platelet Volume 8.4; Monocytes # (A) 0.4 k/uL (0-1.0); Monocytes % (A) 6 %; Neutrophils # (A) 6.4 k/uL (1.3-7.7); Neutrophils % (A) 86 %; Platelet Count 272 k/uL (150-450); RBC 2.79 m/uL (4.30-5.90); WBC 7.5 k/uL (3.8-10.6)
[2020-08-21 07:26] LABS: Albumin 2.7 g/dL (3.5-5.0); Phosphorus 4.3 mg/dL (2.5-4.5); Potassium 4.5 mmol/L (3.5-5.1); Total Bilirubin 0.8 mg/dL (0.2-1.3); Total Protein 5.6 g/dL (6.3-8.2)
--- NOTE | 2020-08-21 07:28 | XR ---
EXAMINATION TYPE: XR chest 1V portable DATE OF EXAM: 08/21/2020 Comparison: 08/20/2020 Clinical History: 80-year-old male effusion Findings: Tracheostomy cannula is in place. Median sternotomy wires and postsurgical clips in the mediastinum. Right PICC tip at the mid SVC level. Heart upper limits of normal in size. Mild hyperinflation with r elative upper lobe lucencies. Continued small effusions with bilateral lower lung opacities. Impression: COPD with continued small pleural effusions and bilateral lower lung patchy consolidation.
[2020-08-21] MEDS: CHLORHEXIDINE GLUCONATE 15 ML CUP MUCOUS MEM SCH ×2 (08:05→20:29)
[2020-08-21] MEDS: PANTOPRAZOLE 40 MG/10 ML VIAL IVP SCH ×2 (08:05→20:29)
[2020-08-21] MEDS: ANIDULAFUNGIN 100 MG in SODIUM CHLORIDE 0.9% 100 ML IVPB SCH (08:05)
[2020-08-21] MEDS: LEVOTHYROXINE IVP 100 MCG/5 ML VIAL IV SCH (08:05)
[2020-08-21] MEDS: BUDESONIDE 1 MG/2 ML NEBU INHALATION SCH ×2 (08:07→19:17)
[2020-08-21] MEDS: FORMOTEROL FUMARATE 20 MCG/2 ML NEBU INHALATION SCH ×2 (08:07→19:18)
[2020-08-21] MEDS: ASPIRIN 81 MG PO SCH (08:10)
[2020-08-21] MEDS: HEPARIN SODIUM,PORCINE 5,000 UNIT/ML 1 ML VIAL SQ SCH ×3 (08:11→23:59)
--- NOTE | 2020-08-21 08:16 | PN ---
PROGRESS NOTE Mr. Tinoco is a 80-year-old male who underwent coronary artery bypass grafting by Dr. Cantor performed on the july. At that time he received a PABLO to the LAD, saphenous vein graft to the PDA with closure of left atrial appendage. His postoperative course was complicated with perforated viscus requiring surgical intervention. He had recurrent respiratory failure with re-intubation, underwent yesterday placement of a tracheostomy and he remains intubated at this time. He underwent PEG tube placement. Hemodynamically, he is in sinus mechanism. His urine output is stable. The plan is to start feeding today. There is no evidence of malignant arrhythmia. He had paroxysmal atrial fibrillation earlier. He continues to be on low-dose aspirin, metoprolol tartrate 5 mg IV q.6 hours. PHYSICAL EXAMINATION: Blood pressure running in the one teens to 120s with the heart rate in the 60s. LUNGS: Clear anteriorly. HEART: Regular rate and rhythm. S1, S2. No S3. No rub. ABDOMEN: Soft. PEG tube in place. Dressing in place. EXTREMITIES: No edema. NEUROLOGICALLY: He is intubated. Following commands. LAB DATA: Hemoglobin of 8.2. His BUN and creatinine yesterday 51 and 1.59. IMPRESSION: 1. Status post coronary artery bypass grafting. 2. Respiratory failure, status post abdominal surgery and failed extubation. 3. Status post tracheostomy and PEG tube placement. 4. Renal failure. 5. Paroxysmal atrial fibrillation. 6. Status post pleural effusion and thoracentesis. 7. History of chronic obstructive lung disease. 8. Chronic kidney disease. 9. History of hypertension. 10.History of hyperlipidemia. RECOMMENDATION: From the cardiac standpoint, will continue supportive care. Follow his renal function closely. Depending on his progress, further recommendation will be made. MMODL / IJN: [id number] /
[2020-08-21 08:22] LABS: Glucose,Whole Blood 125 mg/dL (75-99)
--- NOTE | 2020-08-21 08:54 | P.PN ---
Subjective Progress Note Date: 08/21/20 Principal diagnosis: CABG Patient had trach and PEG placed by general surgery. Currently he is still on the vent. Continues to be tachypnea. No fevers reported. No other overnight events. Objective - Vital Signs Vital signs: Vital Signs Temp 97.4 F L 08/21/20 08:00 Pulse 67 08/21/20 08:43 Resp 24 08/21/20 08:00 BP 102/51 08/20/20 13:15 Pulse Ox 99 08/21/20 08:00 Intake & Output 08/20/20 08/21/20 08/21/20 18:59 06:59 18:59 Intake Total 1046.278 763 261 Output Total 930 950 110 Balance 116.278 -187 151 Weight 86.8 kg Intake: IV 723 663 261 0.45 50 60 15 Anidulafungin 100 mg In 100 100 Sodium Chloride 0.9% 100 ml @ 84 mls/hr IVPB DAILY [facility] Rx#:[id number] Dextrose 5%-0.45% NaCl 1, 440 440 40 000 ml @ 40 mls/hr IV . Q24H [facility] Rx#:[id number] Piperacillin-Tazobactam 3 100 100 100 .375 gm In Sodium Chloride 0.9% 100 ml @ 25 mls/hr IVPB Q8HR [facility] Rx# :[id number] pressure bag 33 63 6 Intake, IV Titration 323.278 100 Amount DAPTOmycin 650 mg In 50 Sodium Chloride 0.9% 50 ml @ 100 mls/hr IVPB Q24H [facility] Rx#:[id number] Norepinephrine 4 mg In 101.603 0 Sodium Chloride 0.9% 250 ml @ 0.05 MCG/KG/MIN 16. 593 mls/hr IV .[id number] [facility] Rx#:[id number] propofoL 1,000 mg In 171.675 100 Empty Bag 1 bag @ Titrate IV .Q0M [facility] Rx#: [id number] Output: Urine 930 750 110 Stool 200 Other: Voiding Method Indwelling Catheter Indwelling Catheter # Voids 75 75 ABP, PAP, CO, CI - Last Documented Arterial Blood Pressure 120/48 Pulmonary Artery Pressure 33/14 Cardiac Output 6.7 Cardiac Index 3.1 - Exam Gen: awake, alert. intubated HEENT: normocephalic, atraumatic, dry mucous membranes, + central line. Resp: adequate lung expansion, symmetric breathing, no accessory muscle use CVS: good distal perfusion x 4, RRR, no murmurs, clicks, gallops GI: soft, NTTP, ND. Ileostomy bag and wound VAC present. : no SPT, no CVAT, malagon catheter is present MSK: No edema, no clubbing Neuro: Generally weak, non-focal, no sensory deficits, appropriate tone - Labs CBC & Chem 7: 08/21/20 07:00 08/21/20 07:00 Labs: Abnormal Lab Results - Last 24 Hours (Table) 08/20/20 08/20/20 08/20/20 Range/Units 13:02 16:56 21:24 RBC (4.30-5.90) m/uL Hgb (13.0-17.5) gm/dL Hct (39.0-53.0) % MCHC (31.0-37.0) g/dL RDW (11.5-15.5) % Lymphocytes # (1.0-4.8) k/uL ABG pCO2 (35-45) mmHg ABG HCO3 (21-25) mmol/L ABG Total CO2 (19-24) mmol/L ABG O2 Saturation (94-97) % Chloride (98-107) mmol/L BUN (9-20) mg/dL Creatinine (0.66-1.25) mg/dL Glucose (74-99) mg/dL POC Glucose (mg/dL) 125 H 145 H 128 H (75-99) mg/dL Total Protein (6.3-8.2) g/dL Albumin (3.5-5.0) g/dL 08/21/20 08/21/20 08/21/20 Range/Units 00:11 03:46 05:20 RBC (4.30-5.90) m/uL Hgb (13.0-17.5) gm/dL Hct (39.0-53.0) % MCHC (31.0-37.0) g/dL RDW (11.5-15.5) % Lymphocytes # (1.0-4.8) k/uL ABG pCO2 50 H (35-45) mmHg ABG HCO3 27 H (21-25) mmol/L ABG Total CO2 29 H (19-24) mmol/L ABG O2 Saturation 98.8 H (94-97) % Chloride (98-107) mmol/L BUN (9-20) mg/dL Creatinine (0.66-1.25) mg/dL Glucose (74-99) mg/dL POC Glucose (mg/dL) 148 H 126 H (75-99) mg/dL Total Protein (6.3-8.2) g/dL Albumin (3.5-5.0) g/dL 08/21/20 08/21/20 08/21/20 Range/Units 07:00 07:00 08:18 RBC 2.79 L (4.30-5.90) m/uL Hgb 8.2 L (13.0-17.5) gm/dL Hct 27.2 L (39.0-53.0) % MCHC 30.1 L (31.0-37.0) g/dL RDW 16.0 H (11.5-15.5) % Lymphocytes # 0.3 L (1.0-4.8) k/uL ABG pCO2 (35-45) mmHg ABG HCO3 (21-25) mmol/L ABG Total CO2 (19-24) mmol/L ABG O2 Saturation (94-97) % Chloride 110 H (98-107) mmol/L BUN 37 H (9-20) mg/dL Creatinine 1.49 H (0.66-1.25) mg/dL Glucose 146 H (74-99) mg/dL POC Glucose (mg/dL) 125 H (75-99) mg/dL Total Protein 5.6 L (6.3-8.2) g/dL Albumin 2.7 L (3.5-5.0) g/dL Microbiology - Last 24 Hours (Table) 08/15/20 21:11 Blood Culture - Preliminary Blood No Growth after 120 hours 08/18/20 15:43 Gram Stain - Final Sputum Sputum Culture - Final 08/17/20 21:50 Gram Stain - Final Sputum Sputum Culture - Final Assessment and Plan Plan: Acute hypoxic respiratory failure, b/l pleural effusion s/p L sided thoracentesis 08/15 - reintubated on 08/17 - management per pulmonary - S/P trach 08/20. Intraperitoneal hemorrhage, s/p ex lap, washout of peritoneal cavity and ileostomy on 08/02 Ischemic small bowel with pneumonperitoneum on 07/24 - surgery recs - eraxis, zosyn, dapto d/melody on 08/20. - S/P PEG placement 08/20 DM 2 - hold metformin - Inulin sliding scale - Follow blood sugars closely - A1C from 06/21/2020 5.2 P. A fib - anticoagulation once patient is improving - Amio - metoprolol Hypotension - Wean levo as able. Acute blood loss anemia and thrombocytopenia, anticipated outcome of surgery - follow CBC - transfuse as indicated COPD - on duonebs, pulmicort and formeterol. Coronary artery disease -Status post coronary artery bypass grafting -Cardiothoracic and cardiology following HTN - meds per CT surgery - follow BP CONNOR on CKD stage III - Baseline cr 1.4-1.5 - suspect due to fluid shifts - follow Cr - Avoid additional nephrotoxic agents - follow renal function closely after surgery Hypothyroidism status post partial thyroidectomy - synthroid Morbid obesity with BMI 30.5 -Outpatient structured weight loss Chronic: ADDY Jacobs's Disposition: Likely LTAC Anticipated discharge: 4-5 days.
--- NOTE | 2020-08-21 09:18 | P.PN ---
Subjective Progress Note Date: 08/21/20 Principal diagnosis: Symptomatic triple-vessel coronary artery disease, mild left ventricular dysfunction. Previuos medical history of stenting to his right coronary artery in 2002, hypertension, hyperlipidemia, hypothyroid status post partial thyroidectomy, previous tobacco dependence quit smoking 20 years ago, moderate chronic obstructive pulmonary disease with preoperative FEV1 of 56% of predicted value, bullous emphysema, remote history of pneumonia, type 2 diabetes mellitus with a preoperative hemoglobin A1c of 5.2%, chronic kidney disease stage III with a baseline creatinine of 1.4-1.5, family history of premature coronary artery disease with brother having had CABG at less than 50 years old. POD #34 double coronary artery bypass grafting using the left internal mammary artery to left anterior descending coronary artery, reverse greater saphenous vein graft from the aorta to the posterior descending coronary artery. Exclusion of the left atrial appendage using a 35 mm Atriclip, endoscopic harvesting of the right greater saphenous vein from the groin to above the ankle level, graft flow measurement using the [employer] Thorneim system, intraoperative transesophageal echocardiogram and epi-aortic scanning. Postoperative acute blood loss anemia, expected outcome from hemodilution and cardiopulmonary bypass. Postoperative paroxysmal atrial fibrillation, unexpected but common outcome after open heart surgery. Pneumoperitoneum, unexpected Acute on chronic kidney disease secondary to ATN Pneumatosis of the small bowel POD #28 ischemic bowel, small bowel resection Acute hypoxic respiratory failure with reintubation, prolonged mechanical ventilation, unexpected Acute abdomen, intraperitoneal hemorrhage POD #19 Exploratory laparotomy, washout of peritoneal cavity, ileostomy with small bowel resection POD #1 tracheostomy placement, EGD with PEG tube placement The patient is currently laying in bed in the intensive care unit in no acute distress. Currently remains in NSR with heart rate in the 70s. Remains on IV Eraxis, Zosyn by Dr. Frederick, daptomycin discontinued. Afebrile for 24 hours, white blood cell count 7.5. New sputum culture sent 08/17/20 after intubation and 08/18/20, negative. Sputum culture from 08/03/20 demonstrating aurora alb icans, blood culture negative, CVC catheter tip removed 08/03/20 growing staph epidermis. Patient continues to have liquid light brown stool through ileostomy. Wound vac in place to mid abdominal incision, changed M-W-. Off IV levo for >24 hours. Currently sedated with minimal propofol, does have eyes open, moves all extremities, follows commands. Trach and PEG placed yesterday, TF to be re-initiated today. Daughter updated by Dr. Cantor yesterday Objective - Vital Signs Vital signs: Vital Signs Temp 97.4 F L 08/21/20 08:00 Pulse 67 08/21/20 08:43 Resp 24 08/21/20 08:00 BP 102/51 08/20/20 13:15 Pulse Ox 99 08/21/20 08:00 Intake & Output 08/20/20 08/21/20 08/21/20 18:59 06:59 18:59 Intake Total 1046.278 763 261 Output Total 930 950 110 Balance 116.278 -187 151 Weight 86.8 kg Intake: IV 723 663 261 0.45 50 60 15 Anidulafungin 100 mg In 100 100 Sodium Chloride 0.9% 100 ml @ 84 mls/hr IVPB DAILY [facility] Rx#:[id number] Dextrose 5%-0.45% NaCl 1, 440 440 40 000 ml @ 40 mls/hr IV . Q24H [facility] Rx#:[id number] Piperacillin-Tazobactam 3 100 100 100 .375 gm In Sodium Chloride 0.9% 100 ml @ 25 mls/hr IVPB Q8HR [facility] Rx# :[id number] pressure bag 33 63 6 Intake, IV Titration 323.278 100 Amount DAPTOmycin 650 mg In 50 Sodium Chloride 0.9% 50 ml @ 100 mls/hr IVPB Q24H [facility] Rx#:[id number] Norepinephrine 4 mg In 101.603 0 Sodium Chloride 0.9% 250 ml @ 0.05 MCG/KG/MIN 16. 593 mls/hr IV .[id number] [facility] Rx#:[id number] propofoL 1,000 mg In 171.675 100 Empty Bag 1 bag @ Titrate IV .Q0M [facility] Rx#: [id number] Output: Urine 930 750 110 Stool 200 Other: Voiding Method Indwelling Catheter Indwelling Catheter # Voids 75 75 ABP, PAP, CO, CI - Last Documented Arterial Blood Pressure 120/48 Pulmonary Artery Pressure 33/14 Cardiac Output 6.7 Cardiac Index 3.1 - Constitutional General appearance: Present: cooperative, no acute distress - Respiratory Details: Lungs sounds diminished bilaterally with expiratory wheezes present. Respirations even, non-labored on mechanical ventilation. Current settings assist control mode, FiO2 40%, tidal volume 450, respiratory rate 24, PEEP 5. ABGs this morning 7.35/50/103/27/98%/1.6 on 40% FiO2 with a PEEP of 5. #8 Shiley tracheostomy present - Cardiovascular Details: S1, S2 present. Regular rate and rhythm, sinus rhythm on telemetry with rate in the 70s. Sternum stable. Palpable peripheral pulses bilaterally. No edema present. Heart hugger, antiembolism stockings, SCDs present. Right brachial PICC line present. Left radial arterial line present - Gastrointestinal Gastrointestinal Comment(s): Abdomen soft, nontender, nondistended. Active bowel sounds present. Ileostomy present to RLQ, stoma pink and moist, positive light brown liquid stool, 200 mL in the last 12 hours. LUQ PEG present and connected to dependent drainage with 150 ml green fluid since OR - Genitourinary Genitourinary Comment(s): Villafana catheter present draining clear, yellow urine. Output 1680 mL in the last 24 hours - Integumentary Integumentary Comment(s): Skin is warm and dry. Anterior chest incision well approximated and covered with dry intact dressing. Right lower extremity EVH site well approximated. Mid abdominal incision open, wound vac in place. Shear injury to shoulder blade healing. Stage II present to coccyx fold - Neurologic Neurologic: Present: CNII-XII intact - Musculoskeletal Musculoskeletal: Present: generalized weakness, strength equal bilaterally - Psychiatric Psychiatric: Present: A&O x's 3 - Allied health notes Allied health notes reviewed: nursing - Labs CBC & Chem 7: 08/21/20 07:00 08/21/20 07:00 Labs: Abnormal Lab Results - Last 24 Hours (Table) 08/20/20 08/20/20 08/20/20 Range/Units 13:02 16:56 21:24 RBC (4.30-5.90) m/uL Hgb (13.0-17.5) gm/dL Hct (39.0-53.0) % MCHC (31.0-37.0) g/dL RDW (11.5-15.5) % Lymphocytes # (1.0-4.8) k/uL ABG pCO2 (35-45) mmHg ABG HCO3 (21-25) mmol/L ABG Total CO2 (19-24) mmol/L ABG O2 Saturation (94-97) % Chloride (98-107) mmol/L BUN (9-20) mg/dL Creatinine (0.66-1.25) mg/dL Glucose (74-99) mg/dL POC Glucose (mg/dL) 125 H 145 H 128 H (75-99) mg/dL Total Protein (6.3-8.2) g/dL Albumin (3.5-5.0) g/dL 08/21/20 08/21/20 08/21/20 Range/Units 00:11 03:46 05:20 RBC (4.30-5.90) m/uL Hgb (13.0-17.5) gm/dL Hct (39.0-53.0) % MCHC (31.0-37.0) g/dL RDW (11.5-15.5) % Lymphocytes # (1.0-4.8) k/uL ABG pCO2 50 H (35-45) mmHg ABG HCO3 27 H (21-25) mmol/L ABG Total CO2 29 H (19-24) mmol/L ABG O2 Saturation 98.8 H (94-97) % Chloride (98-107) mmol/L BUN (9-20) mg/dL Creatinine (0.66-1.25) mg/dL Glucose (74-99) mg/dL POC Glucose (mg/dL) 148 H 126 H (75-99) mg/dL Total Protein (6.3-8.2) g/dL Albumin (3.5-5.0) g/dL 08/21/20 08/21/20 08/21/20 Range/Units 07:00 07:00 08:18 RBC 2.79 L (4.30-5.90) m/uL Hgb 8.2 L (13.0-17.5) gm/dL Hct 27.2 L (39.0-53.0) % MCHC 30.1 L (31.0-37.0) g/dL RDW 16.0 H (11.5-15.5) % Lymphocytes # 0.3 L (1.0-4.8) k/uL ABG pCO2 (35-45) mmHg ABG HCO3 (21-25) mmol/L ABG Total CO2 (19-24) mmol/L ABG O2 Saturation (94-97) % Chloride 110 H (98-107) mmol/L BUN 37 H (9-20) mg/dL Creatinine 1.49 H (0.66-1.25) mg/dL Glucose 146 H (74-99) mg/dL POC Glucose (mg/dL) 125 H (75-99) mg/dL Total Protein 5.6 L (6.3-8.2) g/dL Albumin 2.7 L (3.5-5.0) g/dL Microbiology - Last 24 Hours (Table) 08/15/20 21:11 Blood Culture - Preliminary Blood No Growth after 120 hours 08/18/20 15:43 Gram Stain - Final Sputum Sputum Culture - Final 08/17/20 21:50 Gram Stain - Final Sputum Sputum Culture - Final - Imaging and Cardiology Chest x-ray: report reviewed, image reviewed Assessment and Plan Assessment: 1. Symptomatic triple-vessel coronary artery disease, status post 2 vessel CABG 2. Mild left ventricular dysfunction 3. Previuos history of stenting to his right coronary artery in 2002 4. Hypertension 5. Hyperlipidemia 6. Hypothyroid status post partial thyroidectomy 7. Previous tobacco dependence with bullous emphysema 8. Moderate chronic obstructive pulmonary disease with preoperative FEV1 of 56% of predicted value 9. Remote history of pneumonia 10. Type 2 diabetes mellitus with a preoperative hemoglobin A1c of 5.2% 11. Chronic kidney disease stage III with a baseline creatinine of 1.4-1.5 12. Family history of premature coronary artery disease with brother having had CABG at less than 50 years old 13. Postoperative acute blood loss anemia, expected outcome 14. Postoperative paroxysmal atrial fibrillation, unexpected, status post exclusion of the left atrial appendage 15. Pneumoperitoneum, unexpected 16. Acute on chronic kidney disease with hyponatremia, hyperkalemia 17. Pneumatosis of the small bowel, status post small bowel resection 18. Sputum culture positive for pseudomonas fluorescens, second sputum positive for aurora 19. Acute hypoxic respiratory failure with reintubation, prolonged mechanical ventilation, S/P tracheostomy placement 20. Acute abdomen, intraperitoneal hemorrhage, S/P exploratory laparotomy, washout of peritoneal cavity, ileostomy with small bowel resection 21. Generalized debility secondary to above, S/P PEG placement for nutrition Plan: 1. Continue low dose aspirin, beta apolinar. 2. Will re-add amiodarone for afib prophylaxis. Will restart anticoagulation 24-48 hours after surgery 3. Mechanical ventilation, bronchodilators, inhaled steroids per pulmonology management. Use as minimal sedation as possible 4. Will monitor daily labs and chest x-rays. 5. GI/DVT prophylaxis. 6. Pain control with current medication regimen. 7. Insulin management per primary care service 8. Restart TF today 9. Nephrology following. Avoid nephrotoxic agents. Lasix dosing/fluid management per nephrology recommendations 10. Strict accurate intake and output, daily weight 11. Continue IV Eraxis day #17, re-added Zosyn, day 5 (previously on from 07/24/20-08/05/20) per infectious disease. 12. Wound vac to be changed -- 13. DC planning continues, social work on board to assist. Anticipate DC to LTAC when able, likely end of the week 14. More recommendations to follow based on patient's clinical course. Time with Patient: Greater than 30
--- NOTE | 2020-08-21 10:17 | P.PN ---
Subjective Patient is seen in follow-up for acute kidney injury. Renal function improving. Off vasopressors. Status post trach and PEG. Tube feeding to be started possibly today. Vital signs are stable. General: The patient appeared well nourished and normally developed. HEENT: Head exam is unremarkable. Tracheostomy noted. LUNGS: Breath sounds decreased. HEART: Rate and Rhythm are regular. ABDOMEN: Soft, nondistended. Ileostomy and PEG tube noted EXTREMITITES: No edema. Objective - Vital Signs Vital signs: Vital Signs Temp 97.4 F L 08/21/20 08:00 Pulse 64 08/21/20 09:00 Resp 24 08/21/20 09:00 BP 102/51 08/20/20 13:15 Pulse Ox 98 08/21/20 09:00 Intake & Output 08/20/20 08/21/20 08/21/20 18:59 06:59 18:59 Intake Total 1046.278 763 414 Output Total 930 950 260 Balance 116.278 -187 154 Weight 86.8 kg Intake: IV 723 663 314 0.45 50 60 25 Anidulafungin 100 mg In 100 100 Sodium Chloride 0.9% 100 ml @ 84 mls/hr IVPB DAILY [facility] Rx#:[id number] Dextrose 5%-0.45% NaCl 1, 440 440 80 000 ml @ 40 mls/hr IV . Q24H [facility] Rx#:[id number] Piperacillin-Tazobactam 3 100 100 100 .375 gm In Sodium Chloride 0.9% 100 ml @ 25 mls/hr IVPB Q8HR [facility] Rx# :[id number] pressure bag 33 63 9 Intake, IV Titration 323.278 100 100 Amount DAPTOmycin 650 mg In 50 Sodium Chloride 0.9% 50 ml @ 100 mls/hr IVPB Q24H [facility] Rx#:[id number] Norepinephrine 4 mg In 101.603 0 Sodium Chloride 0.9% 250 ml @ 0.05 MCG/KG/MIN 16. 593 mls/hr IV .[id number] [facility] Rx#:[id number] propofoL 1,000 mg In 171.675 100 100 Empty Bag 1 bag @ Titrate IV .Q0M [facility] Rx#: [id number] Output: Urine 930 750 260 Stool 200 Other: Voiding Method Indwelling Catheter Indwelling Catheter # Voids 75 75 ABP, PAP, CO, CI - Last Documented Arterial Blood Pressure 119/46 Pulmonary Artery Pressure 33/14 Cardiac Output 6.7 Cardiac Index 3.1 - Labs CBC & Chem 7: 08/21/20 07:00 08/21/20 07:00 Labs: Abnormal Lab Results - Last 24 Hours (Table) 08/20/20 08/20/20 08/20/20 Range/Units 13:02 16:56 21:24 RBC (4.30-5.90) m/uL Hgb (13.0-17.5) gm/dL Hct (39.0-53.0) % MCHC (31.0-37.0) g/dL RDW (11.5-15.5) % Lymphocytes # (1.0-4.8) k/uL ABG pCO2 (35-45) mmHg ABG HCO3 (21-25) mmol/L ABG Total CO2 (19-24) mmol/L ABG O2 Saturation (94-97) % Chloride (98-107) mmol/L BUN (9-20) mg/dL Creatinine (0.66-1.25) mg/dL Glucose (74-99) mg/dL POC Glucose (mg/dL) 125 H 145 H 128 H (75-99) mg/dL Total Protein (6.3-8.2) g/dL Albumin (3.5-5.0) g/dL 08/21/20 08/21/20 08/21/20 Range/Units 00:11 03:46 05:20 RBC (4.30-5.90) m/uL Hgb (13.0-17.5) gm/dL Hct (39.0-53.0) % MCHC (31.0-37.0) g/dL RDW (11.5-15.5) % Lymphocytes # (1.0-4.8) k/uL ABG pCO2 50 H (35-45) mmHg ABG HCO3 27 H (21-25) mmol/L ABG Total CO2 29 H (19-24) mmol/L ABG O2 Saturation 98.8 H (94-97) % Chloride (98-107) mmol/L BUN (9-20) mg/dL Creatinine (0.66-1.25) mg/dL Glucose (74-99) mg/dL POC Glucose (mg/dL) 148 H 126 H (75-99) mg/dL Total Protein (6.3-8.2) g/dL Albumin (3.5-5.0) g/dL 08/21/20 08/21/20 08/21/20 Range/Units 07:00 07:00 08:18 RBC 2.79 L (4.30-5.90) m/uL Hgb 8.2 L (13.0-17.5) gm/dL Hct 27.2 L (39.0-53.0) % MCHC 30.1 L (31.0-37.0) g/dL RDW 16.0 H (11.5-15.5) % Lymphocytes # 0.3 L (1.0-4.8) k/uL ABG pCO2 (35-45) mmHg ABG HCO3 (21-25) mmol/L ABG Total CO2 (19-24) mmol/L ABG O2 Saturation (94-97) % Chloride 110 H (98-107) mmol/L BUN 37 H (9-20) mg/dL Creatinine 1.49 H (0.66-1.25) mg/dL Glucose 146 H (74-99) mg/dL POC Glucose (mg/dL) 125 H (75-99) mg/dL Total Protein 5.6 L (6.3-8.2) g/dL Albumin 2.7 L (3.5-5.0) g/dL Microbiology - Last 24 Hours (Table) 08/15/20 21:11 Blood Culture - Preliminary Blood No Growth after 120 hours 08/18/20 15:43 Gram Stain - Final Sputum Sputum Culture - Final 08/17/20 21:50 Gram Stain - Final Sputum Sputum Culture - Final Assessment and Plan Plan: Assessment: 1. Acute kidney injury secondary to hemodynamic ATN. No hydronephrosis noted on computed tomography scan. No proteinuria on UA. Nonoliguric. Renal function improved. Creatinine 1.49 today. 2. Chronic kidney disease stage III with baseline creatinine in the range of 1.2-1.5 secondary to nephrosclerosis. UA from June 2020 was benign. 3. Coronary artery disease status post 2 vessel CABG on July 18. 4. Hypervolemic hyponatremia. Resolved. s/p diuresis. 5. Bowel ischemia status post exploratory laparotomy and resection. Underwent another exploratory laparotomy on August 02 with ileostomy. 6. Diabetes mellitus. 7. Volume overload. Improved with diuresis. 8. A. fib maintained on Lopressor. 9. Anemia of chronic kidney disease and post-cabg. Status post blood transfusion this admission. Hemoglobin stable. Plan: Tube feeds to be possibly started today. Avoid nephrotoxins. Continue to monitor renal function and urine output. Add Aranesp.
[2020-08-21] MEDS ORDERED: DARBEPOETIN ALFA 40 MCG/0.4 ML SYRINGE SQ SCH (10:30)
--- NOTE | 2020-08-21 11:00 | P.PN ---
Subjective Progress Note Date: 08/21/20 CHIEF COMPLAINT: Status post CABG 2 vessels HISTORY OF PRESENT ILLNESS: Patient remains in the ICU. Lying in bed. He is status post peg tube and tracheostomy placement. tube feedings will be started today. Patient is having stool through his ileostomy. Continues to have wound VAC in place for his abdominal incision. He is off of pressors. He is on minimal sedation and hopefully that will be discontinued later today. PHYSICAL EXAM: VITAL SIGNS: Reviewed. GENERAL: Well-developed in no acute distress. HEENT: No sclera icterus. Extraocular movements grossly intact. Moist buccal mucosa. Head is atraumatic, normocephalic. ABDOMEN: Soft. Abdominal incision with wound VAC in place. Ileostomy right side of abdomen with dark brown liquidy stool. PEG tube site clean dry and intact NEUROLOGIC: Intubated and sedated ASSESSMENT: 1. Intraperitoneal hemorrhage status post exploratory laparotomy, washout of peritoneal cavity and ileostomy on 08/02/2020 2. Ischemic small bowel with evidence of pneumatosis status post small bowel resection on 07/24/2020 3. Acute hypoxic respiratory failure requiring mechanical ventilation 4. symptomatic triple-vessel coronary artery disease status post 2 vessel coronary bypass grafting surgery 5. Diabetes mellitus type 2 PLAN: -Start tube feedings today -Continue wound VAC -Continue antibiotics per ID -Continue supportive care -DVT prophylaxis subcu Heparin and GI prophylaxis Protonix Physician [employer] note has been reviewed by physician. Signing provider agrees with the documented findings, assessment, and plan of care. Objective - Vital Signs Vital signs: Vital Signs Temp 97.4 F L 08/21/20 08:00 Pulse 71 08/21/20 10:00 Resp 28 H 08/21/20 10:00 BP 102/51 08/20/20 13:15 Pulse Ox 100 08/21/20 10:00 Intake & Output 08/20/20 08/21/20 08/21/20 18:59 06:59 18:59 Intake Total 1046.278 763 414 Output Total 930 950 260 Balance 116.278 -187 154 Weight 86.8 kg 86.8 kg Intake: IV 723 663 314 0.45 50 60 25 Anidulafungin 100 mg In 100 100 Sodium Chloride 0.9% 100 ml @ 84 mls/hr IVPB [facility] Rx#:[id number] Dextrose 5%-0.45% NaCl 1, 440 440 80 000 ml @ 40 mls/hr IV . Q24H [facility] Rx#:[id number] Piperacillin-Tazobactam 3 100 100 100 .375 gm In Sodium Chloride 0.9% 100 ml @ 25 mls/hr IVPB Q8HR [facility] Rx# :[id number] pressure bag 33 63 9 Intake, IV Titration 323.278 100 100 Amount DAPTOmycin 650 mg In 50 Sodium Chloride 0.9% 50 ml @ 100 mls/hr IVPB Q24H [facility] Rx#:[id number] Norepinephrine 4 mg In 101.603 0 Sodium Chloride 0.9% 250 ml @ 0.05 MCG/KG/MIN 16. 593 mls/hr IV .[id number] [facility] Rx#:[id number] propofoL 1,000 mg In 171.675 100 100 Empty Bag 1 bag @ Titrate IV .Q0M [facility] Rx#: [id number] Output: Urine 930 750 260 Stool 200 Other: Voiding Method Indwelling Catheter Indwelling Catheter # Voids 75 75 ABP, PAP, CO, CI - Last Documented Arterial Blood Pressure 116/45 Pulmonary Artery Pressure 33/14 Cardiac Output 6.7 Cardiac Index 3.1 - Labs CBC & Chem 7: 08/21/20 07:00 08/21/20 07:00 Labs: Abnormal Lab Results - Last 24 Hours (Table) 08/20/20 08/20/20 08/20/20 Range/Units 13:02 16:56 21:24 RBC (4.30-5.90) m/uL Hgb (13.0-17.5) gm/dL Hct (39.0-53.0) % MCHC (31.0-37.0) g/dL RDW (11.5-15.5) % Lymphocytes # (1.0-4.8) k/uL ABG pCO2 (35-45) mmHg ABG HCO3 (21-25) mmol/L ABG Total CO2 (19-24) mmol/L ABG O2 Saturation (94-97) % Chloride (98-107) mmol/L BUN (9-20) mg/dL Creatinine (0.66-1.25) mg/dL Glucose (74-99) mg/dL POC Glucose (mg/dL) 125 H 145 H 128 H (75-99) mg/dL Total Protein (6.3-8.2) g/dL Albumin (3.5-5.0) g/dL 08/21/20 08/21/20 08/21/20 Range/Units 00:11 03:46 05:20 RBC (4.30-5.90) m/uL Hgb (13.0-17.5) gm/dL Hct (39.0-53.0) % MCHC (31.0-37.0) g/dL RDW (11.5-15.5) % Lymphocytes # (1.0-4.8) k/uL ABG pCO2 50 H (35-45) mmHg ABG HCO3 27 H (21-25) mmol/L ABG Total CO2 29 H (19-24) mmol/L ABG O2 Saturation 98.8 H (94-97) % Chloride (98-107) mmol/L BUN (9-20) mg/dL Creatinine (0.66-1.25) mg/dL Glucose (74-99) mg/dL POC Glucose (mg/dL) 148 H 126 H (75-99) mg/dL Total Protein (6.3-8.2) g/dL Albumin (3.5-5.0) g/dL 08/21/20 08/21/20 08/21/20 Range/Units 07:00 07:00 08:18 RBC 2.79 L (4.30-5.90) m/uL Hgb 8.2 L (13.0-17.5) gm/dL Hct 27.2 L (39.0-53.0) % MCHC 30.1 L (31.0-37.0) g/dL RDW 16.0 H (11.5-15.5) % Lymphocytes # 0.3 L (1.0-4.8) k/uL ABG pCO2 (35-45) mmHg ABG HCO3 (21-25) mmol/L ABG Total CO2 (19-24) mmol/L ABG O2 Saturation (94-97) % Chloride 110 H (98-107) mmol/L BUN 37 H (9-20) mg/dL Creatinine 1.49 H (0.66-1.25) mg/dL Glucose 146 H (74-99) mg/dL POC Glucose (mg/dL) 125 H (75-99) mg/dL Total Protein 5.6 L (6.3-8.2) g/dL Albumin 2.7 L (3.5-5.0) g/dL Microbiology - Last 24 Hours (Table) 08/15/20 21:11 Blood Culture - Preliminary Blood No Growth after 120 hours 08/18/20 15:43 Gram Stain - Final Sputum Sputum Culture - Final 08/17/20 21:50 Gram Stain - Final Sputum Sputum Culture - Final
[2020-08-21] MEDS: SODIUM CHLORIDE 0.45% 1,000 ML IV SCH (12:24)
[2020-08-21 12:28] LABS: Glucose,Whole Blood 117 mg/dL (75-99)
[2020-08-21] MEDS: DEXMEDETOMIDINE/0.9% NACL(PMX) 400 MCG in EMPTY BAG 1 BAG IV SCH ×2 (12:51→18:11)
--- NOTE | 2020-08-21 14:09 | P.PN ---
Subjective Progress Note Date: 08/21/20 Principal diagnosis: Coronary artery disease, status post 3 vessel CABG. 79-year-old white male patient with past medical history of hypertension, hyperlipidemia, moderate to severe COPD with the baseline FEV1 of 56% of predicted who came in on 07/18/2020 for elective two-vessel bypass grafting with PABLO to LAD, and SVG to the PDA. He was seen in the intensive care unit [facility], patient was successfully weaned and extubated from mechanical ventilator and under 6 hours following his OR exit, is currently awake and alert, sitting in the chair, he is currently on 2 L of oxygen, his pulse ox is 98%, hemodynamically he stable, blood pressure is 106/51, PA pressures 35/11, CVP is 8, no fever or chills, IV fluids including the 0.9 normal saline at a rate of 30 ML per hour, insulin is 4.5 units per hour, no vasoactive drips. Today's chest x-ray shows a pneumoperitoneum with lucency present underneath the right hemidiaphragm. He has left pleural and mediastinal chest tube, and there has been 500 mL of serosanguineous output from the left pleural and 350 mL from the mediastinal chest tube in the last 24 hours. Is having some mild discomfort under the right rib cage, but no acute distress, abdomen is distended but soft, he is hemodynamically stable, he is in sinus mechanism, no nausea vomiting or diarrhea. CT of the abdomen and pelvis is pending today's labs have been reviewed, showing white blood cell count of 11.9, hemoglobin of 9, sodium is 133, the rest of the electrolytes were within normal limits, B1 is 25 creatinine is 1.18 The patient is seen today 07/20/2020 in follow-up in the intensive care unit. He is currently sitting up in a chair at the bedside. Awake and alert in no acute distress. This is postoperative day #2, two-vessel coronary artery bypass surgery. He is currently on 2 L/m per nasal cannula maintaining good O2 saturat ion in the 90s. He did have issues with atrial fibrillation and is currently on Cardizem drip at 10 mg per hour. He did receive IV amiodarone, initiated on by mouth today. 0.9 normal saline at KVO. Chest x-ray reveals removal of mediastinal drains. Right-sided pneumoperitoneum is no longer appreciated. Left-sided chest tube remains in place. Bibasilar patchy atelectasis remains. White count 18.2. Hemoglobin 8.9. Platelet count 99,000. Sodium 127. Potassium 5.0. Creatinine 1.37. He is pulling approximately 3116-2902 ML's on the incentive spirometer. Continued on bronchodilators. Heparin for DVT prophylaxis. Patient is seen today 07/22/2020 in follow-up on the intensive care unit. He is currently sitting up in a chair at the bedside. He is having complaints of increasing shortness of breath. He is doing less on his incentive spirometer. Chest x-ray reveals small right pleural effusion with adjacent atelectasis and/or consolidation. He is currently maintaining O2 saturations in the low 90s on 3 L/m per nasal cannula. Respiratory rate 32. He is afebrile. Blood pre ssure stable. He did have issues with atrial fibrillation with rapid ventricular response last evening. He is on a Cardizem drip at 10 mg per hour. He will be transitioned to Eliquis. On oral amiodarone. 0.9 normal saline at 20 ML's per hour. Currently in sinus rhythm. White count 16.8. Hemoglobin 8.8. Sodium 124. Potassium 5.3. Bicarb 20. Creatinine 1.62. AST 147. ALT 130. He is still having issues with hypoactive bowel and not passing flatus or bowel movement since surgery. He remains on bronchodilators and IV Solu-Medrol. The patient is seen today 07/23/2020 in follow-up in the intensive care unit. Postoperative day #5. He is awake and alert in no acute distress. Currently sitting up in a chair at the bedside. He is feeling stronger today. Less short of breath. Maintaining O2 saturations in the 90s on 3 L/m per nasal cannula. Chest x-ray continues to show a small right pleural effusion with prominent right greater than left basilar atelectasis. He is doing better with his incentive spirometer. White count 15.2. Hemoglobin 81.1. Sodium 124. Potassium 5.3. Creatinine 1.84. AST 136. ALT 193. Albumin 3.4. No IV fluids currently. Is continued on bronchodilators, IV Solu-Medrol, anticoagulated with Eliquis. Still has not had a bowel movement. The patient is seen today 08/09/2020 in follow-up in the intensive care unit. He was extubated again yesterday 08/08/2020. He is currently on 2 L/m per nasal cannula. TPN at 75 ML's per hour. 0.9#10 ML's per hour. Amiodarone at 0.25 mg/m. Insulin drip at 7 units per hour. His x-ray reveals some evidence of fluid volume overload. He is also quite edematous. He'll receive Lasix 40 mg IVP 1 today. He'll also be placed on BiPAP 07/22 on 40% FiO2 as he remains slightly tachypneic and shallow breathing. He is quite weak and debilitated today. He remains on bronchodilators. Eraxis. Daptomycin. Being nourished with lipid and TPN. The patient is seen today 08/11/2020 in follow-up in the intensive care unit. He is currently resting fairly comfortably in bed. Maintaining O2 saturation in the 90s on 2 L/m per nasal cannula. He did wear BiPAP last night at 12/5 and 28% FiO2. He is being nourished with TPN at 75 ML's per hour. He is on insulin at 5.5 units per hour. He remains on amiodarone at 0.25 mg/m. White count 10.0. Hemoglobin 9.2. Sodium 145. Potassium 4.0. Creatinine 1.50. Glucose 120. Chest xray reveals persistent bilateral lung opacities and pleural effusions. No significant change. Remains on DuoNeb inhalations, daptomycin, meropenem. Remains slightly tachycardic. Temperature 99.2 axillary. Needs increased encouragement regarding the use of the incentive spirometer. The patient is seen today 08/12/2020 in follow-up in the intensive care unit. He is awake and alert in no acute distress. He is maintaining O2 saturation in the 90s on 2 L/m per nasal cannula. He has TPN at 75 ML's per hour. 0.9 normal sitting at 10 MLS per hour. Insulin drip at 4 units per hour. Chest x-ray showed a questionable left apical pneumothorax. Computed tomography scan of the chest revealed advanced upper lung emphysema but no convincing pneumothorax. There is moderate bilateral pleural effusions with atelectatic collapse of the entire bilateral lower lobes. Small pericardial effusion. He continues to breathe quite shallow with tachypnea. He remains quite weak and debilitated. Currently afebrile. Hemodynamically stable. White count 10.8. Hemoglobin 9.8. Sodium 143. Potassium 4.1. Creatinine 1.44. Glucose 152. AST 49. ALT 62. Albumin 2.5. He remains on daptomycin, Eraxis, bronchodilators. The patient is seen today 08/13/2020 in follow-up in the intensive care unit. He is currently resting fairly comfortably in bed. He remains awake. He is still very weak and debilitated. Physical therapy is working with the patient. He continues with rapid shallow breathing despite encouraging him to take slower deeper breaths. He is maintaining good O2 saturation in the 90s on 2 L/m per nasal cannula. He has TPN for nourishment at 75 ML's per hour. 0.9#10 mL per hour. Insulin drip at 7 units per hour. Chest x-ray continued showing evidence of COPD and continue small to moderate effusions with adjacent atelectasis/consolidations. He continues to need increased encouragement to utilize the incentive spirometer and cough and deep breathing exercises. White count 11.7. Hemoglobin 10.0. Sodium 144. Potassium 4.2. Creatinine 1.47. Glucose 151. He remains on DuoNeb inhalations, Pulmicort inhalations. Antibiotics in the form of daptomycin. Eraxis. Heparin for DVT prophylaxis. The patient is seen today 08/16/2020 in follow-up in the intensive care unit. Postoperative day #29 of his coronary artery bypass grafting. He is awake and alert in no acute distress. He is currently sitting up in a chair at the bedside. Maintaining O2 saturations up to 99% on 5 L/m per nasal cannula. He remains tachypneic. He has a respiratory pattern of rapid shallow breathing. Chest x-ray reveals COPD with continued small pleural effusions and patchy atelectasis in the bases. He is status post left-sided thoracentesis with 1.4 L of turbid blood tinged fluid removed yesterday. He is status post 5 units of packed red blood cells this admission. Current hemoglobin 10.3. Platelet count 370. White count 13.5. Sodium 142. Potassium 4.7. Creatinine 1.55. He remains on bronchodilators, Mucomyst, Pulmicort. Insulin drip at 3.5 units per hour. Being nourished with Glucerna. TPN's at 35 mL per hour. 0.9 normal sis ine at 10 MLS per hour. The patient is seen today 08/17/2020 in follow-up in the intensive care unit. This is postoperative day #30 of his coronary artery bypass grafting. He is currently resting fairly comfortably in bed. He is on BiPAP 15/5 and 35% FiO2. He is 0.9 normal saline at 50 MLS per hour. He is awake. Chest x-ray continues to show stable bibasilar infiltrates. There is some improvement in the right- sided pleural effusion. White count 11.9. Hemoglobin 10.3. Platelets 285. S odium 136. Potassium 5.4. Creatinine 1.99. Glucose 147. He remains on DuoNeb inhalations, Pulmicort and Perforomist inhalations, Eraxis, Zosyn, daptomycin. Follow-up blood cultures reveal no growth to date. The patient is seen today 08/18/2020 in follow-up in the intensive care unit. Yesterday he developed worsening shortness of breath despite being on BiPAP. He was quite tachypneic and had desaturations. He was subsequently reintubated and placed back on the mechanical ventilator. Assist-control rate of 24, tidal volume 450, FiO2 of 40% and a PEEP of 5. Morning blood gases reveal a P O2 of 168, pCO2 52, pH 7.38. This breath and FiO2 of 60%. Left radial arterial line placed yesterday. He remains on propofol at 40 mcg/kg/m. Heparin drip per weight-based protocol. 0.9 normal sitting at 25 ML's per hour. Norepinephrine at 4 mcg/m. He is being nourished with Nepro 180 MLS every 4 hours with free water flushes. Chest x-ray reveals evidence of congestive heart failure with mild cardiomegaly and small bilateral pleural effusions with mild central vascular congestion and associated basilar atelectasis. He is status post 5 units of packed red blood cells this admission. Current hemoglobin 8.3. White count 9.2. Sodium 145. Potassium 4.3. Creatinine 2.30. Glucose 136. Magnesium 2.6. He remains on bronchodilators, antibiotics in the form of Zosyn and daptomycin. Remains on Eraxis. Ostomy functioning. The patient is seen today 08/19/2020 in follow-up in the intensive care unit. He remains intubated on the mechanical ventilator. Assist-control mode. Rate of 24. Ativan for 50. FiO2 40% and a PEEP of 5. Morning blood gases revealed a pO2 of 87, pCO2 46, pH 7.39. He remains sedated on propofol at 35 mcg/kg/m. Requiring norepinephrine at 1.7 mcg/m. D5W at 20 mL per hour. Heparin drip weight-based protocol. Today's chest x-ray reveals no evidence of pneumothorax. There is a stable right pleural effusion. Endotracheal NG tube locations are good. There is a new patchy airspace disease in the right upper lobe. Some worsening pulmonary edema in the right lower lobe. He remains on DuoNeb inhalations, Pulmicort and Perforomist inhalations. He remains on antibiotics in the form of daptomycin, Eraxis, Zosyn. White count 8.6. Hemoglobin 8.4. D- dimer 1.79. Sodium 142. Potassium 3.8. Creatinine 1.78. Dopplers of the bilateral lower extremities negative for DVT. Plan is for possible tracheostomy tube placement tomorrow with Dr. Cantor. The patient is seen today 08/20/2020 in follow-up in the intensive care unit. He remains intubated on mechanical ventilator. Currently an assist-control mode with a rate of 24, tidal volume 450, FiO2 40% and a PEEP of 5. Morning blood gases reveal a pO2 of 96, pCO2 45, pH 7.40. He remains on norepinephrine at 0.03 mcg/kg/m. Propofol at 35 mcg/kg/m. D5 and half-normal saline at 40 ML's per hour. Tube feeding's are currently on hold. The plan is for tracheostomy tube insertion and possible PEG tube placement today. Chest x-ray shows evidence of mild fluid volume overload and mild cardiomegaly with small bilateral pleural effusions and mild central vascular congestion. Persistent basilar acute infiltrate/atelectasis noted. Back on chronic emphysematous changes. No significant change compared to yesterday. White count 6.7. Hemoglobin 8.4. Sodium 137. Potassium 4.6. Creatinine 1.59. Remains on Zosyn, daptomycin, and Eraxis. Reevaluated today on 08/21/2020, patient remains in the intensive care unit, remains intubated and mechanically ventilated. He is now on assist control rate of 24 tidal volume is 450 FiO2 is 40% and PEEP of 5. ABG showed a pO2 of 103 EC O2 of 50 pH of 7.35. Patient is on multiple drips including D5 4 5 at 50 mL per hour. Propofol at 25 mcg/kg/m, he is off norepinephrine. Patient underwent tracheostomy and PEG tube placement yesterday, and the plan is to start using the PEG tube today for enteral support. I also plan to give the patient trials of weaning with pressure support of 12 and CPAP. Ileostomy seems to be functioning well. Wound VAC seems to be intact in the mid abdomen. PEG tube seems to be intact. Tracheostomy seems to be functional well. Patient had 2 vessel bypass surgery on 07/18/20, he had intraperitoneal hemorrhage requiring exploratory laparotomy and ileostomy on 08/02. Extubated and reintubated 3 times. Presently intubated and on mechanical ventilation via tracheostomy. Again I plan to give the patient weaning trial with pressure support and CPAP today. Chest x-ray showed minimal bibasilar atelectasis, no significant pleural effusion. CBC today is relatively normal. Basic metabolic profile is normal. BUN is 37 creatinine is 1.49. Objective - Vital Signs Vital signs: Vital Signs Temp 97.8 F 08/21/20 12:00 Pulse 79 08/21/20 13:00 Resp 30 H 08/21/20 13:00 BP 102/51 08/20/20 13:15 Pulse Ox 99 08/21/20 13:00 Intake & Output 08/20/20 08/21/20 08/21/20 18:59 06:59 18:59 Intake Total 1046.278 763 876.592 Output Total 930 950 500 Balance 116.278 -187 376.592 Weight 86.8 kg 86.8 kg Intake: IV 723 663 443 0.45 50 60 65 Anidulafungin 100 mg In 100 100 Sodium Chloride 0.9% 100 ml @ 84 mls/hr IVPB DAILY [facility] Rx#:[id number] Dextrose 5%-0.45% NaCl 1, 440 440 160 000 ml @ 40 mls/hr IV . Q24H [facility] Rx#:[id number] Piperacillin-Tazobactam 3 100 100 100 .375 gm In Sodium Chloride 0.9% 100 ml @ 25 mls/hr IVPB Q8HR [facility] Rx# :[id number] pressure bag 33 63 18 Intake, IV Titration 323.278 100 153.592 Amount DAPTOmycin 650 mg In 50 Sodium Chloride 0.9% 50 ml @ 100 mls/hr IVPB Q24H [facility] Rx#:[id number] Dexmedetomidine/0.9% NaCl 6.51 (Pmx) 400 mcg In Empty Bag 1 bag @ Titrate IV . Q0M [facility] Rx#:[id number] Norepinephrine 4 mg In 101.603 0 Sodium Chloride 0.9% 250 ml @ 0.05 MCG/KG/MIN 16. 593 mls/hr IV .[id number] [facility] Rx#:[id number] Sodium Chloride 0.45% 1, 20 000 ml @ 20 mls/hr IV . Q24H [facility] Rx#:[id number] propofoL 1,000 mg In 171.675 100 127.082 Empty Bag 1 bag @ Titrate IV .Q0M [facility] Rx#: [id number] Tube Feeding 80 Other 200 Output: Urine 930 750 500 Stool 200 Other: Voiding Method Indwelling Catheter Indwelling Catheter # Voids 75 75 ABP, PAP, CO, CI - Last Documented Arterial Blood Pressure 129/57 Pulmonary Artery Pressure 33/14 Cardiac Output 6.7 Cardiac Index 3.1 - Exam GENERAL EXAM: Intubated, sedated 79-year-old male patient, very weak and debilitated, on the mechanical ventilator HEAD: Normocephalic/atraumatic. HEENT: PERRLA, EOMI, nonicteric, no neck masses, no JVD, tracheostomy seems to be intact. CHEST: No chest wall deformity. Symmetrical expansion. Midsternal incision is clean dry and intact LUNGS: Equal air entry with scattered crackles in the bases. CVS: Regular rate and rhythm, normal S1 and S2, no gallops, no murmurs, no rubs ABDOMEN: Abdominal incision with wound VAC in place. Ileostomy the right side of the abdomen, seems to be functional, PEG tube is intact. EXTREMITIES: No clubbing, no edema, no cyanosis, 2+ pulses and upper and lower extremities. MUSCULOSKELETAL: Muscle strength and tone normal. SPINE: No scoliosis or deformity SKIN: No rashes CENTRAL NERVOUS SYSTEM: Intubated, sedated. Unable to assess PSYCHIATRIC: Unable to assess. - Labs CBC & Chem 7: 08/21/20 07:00 08/21/20 07:00 Labs: Abnormal Lab Results - Last 24 Hours (Table) 08/20/20 08/20/20 08/21/20 Range/Units 16:56 21:24 00:11 RBC (4.30-5.90) m/uL Hgb (13.0-17.5) gm/dL Hct (39.0-53.0) % MCHC (31.0-37.0) g/dL RDW (11.5-15.5) % Lymphocytes # (1.0-4.8) k/uL ABG pCO2 (35-45) mmHg ABG HCO3 (21-25) mmol/L ABG Total CO2 (19-24) mmol/L ABG O2 Saturation (94-97) % Chloride (98-107) mmol/L BUN (9-20) mg/dL Creatinine (0.66-1.25) mg/dL Glucose (74-99) mg/dL POC Glucose (mg/dL) 145 H 128 H 148 H (75-99) mg/dL Total Protein (6.3-8.2) g/dL Albumin (3.5-5.0) g/dL 08/21/20 08/21/20 08/21/20 Range/Units 03:46 05:20 07:00 RBC 2.79 L (4.30-5.90) m/uL Hgb 8.2 L (13.0-17.5) gm/dL Hct 27.2 L (39.0-53.0) % MCHC 30.1 L (31.0-37.0) g/dL RDW 16.0 H (11.5-15.5) % Lymphocytes # 0.3 L (1.0-4.8) k/uL ABG pCO2 50 H (35-45) mmHg ABG HCO3 27 H (21-25) mmol/L ABG Total CO2 29 H (19-24) mmol/L ABG O2 Saturation 98.8 H (94-97) % Chloride (98-107) mmol/L BUN (9-20) mg/dL Creatinine (0.66-1.25) mg/dL Glucose (74-99) mg/dL POC Glucose (mg/dL) 126 H (75-99) mg/dL Total Protein (6.3-8.2) g/dL Albumin (3.5-5.0) g/dL 08/21/20 08/21/20 08/21/20 Range/Units 07:00 08:18 12:26 RBC (4.30-5.90) m/uL Hgb (13.0-17.5) gm/dL Hct (39.0-53.0) % MCHC (31.0-37.0) g/dL RDW (11.5-15.5) % Lymphocytes # (1.0-4.8) k/uL ABG pCO2 (35-45) mmHg ABG HCO3 (21-25) mmol/L ABG Total CO2 (19-24) mmol/L ABG O2 Saturation (94-97) % Chloride 110 H (98-107) mmol/L BUN 37 H (9-20) mg/dL Creatinine 1.49 H (0.66-1.25) mg/dL Glucose 146 H (74-99) mg/dL POC Glucose (mg/dL) 125 H 117 H (75-99) mg/dL Total Protein 5.6 L (6.3-8.2) g/dL Albumin 2.7 L (3.5-5.0) g/dL Microbiology - Last 24 Hours (Table) 08/15/20 21:11 Blood Culture - Preliminary Blood No Growth after 120 hours 08/18/20 15:43 Gram Stain - Final Sputum Sputum Culture - Final Assessment and Plan Assessment: Impression: Status post two-vessel CABG with PABLO to LAD and SVG to PDA on 07/18/2020. Postoperative respiratory failure, unexpected, failure to wean, felt to be multifactorial. Patient had to be reintubated 3 times since his surgery. Postoperative intraperitoneal hemorrhage requiring exploratory laparotomy ileostomy on 08/02, previous surgery on 07/24/20 for ischemic bowel, requiring bowel resection. Status post tracheostomy and PEG tube placement on 08/20/2020. Bilateral pleural effusions requiring left thoracentesis on 08/15/2020. History of hypothyroidism. History of moderate severe COPD, FEV1 of 53%. Acute on chronic kidney disease, patient has a baseline kidney disease stage III. Type 2 diabetes. Postoperative acute blood loss anemia, related to his multiple surgeries. History of coronary artery disease and previous stent placement. Recommendation: Continue present ventilatory support. Give the patient a trial of weaning with pressure support and CPAP today. Start enteral feeding via PEG tube. Continue antibiotics as per infectious disease on the case. Continue bronchodilators. Continue low-dose aspirin and beta blockers. Continue bronchodilators. Continue GI and DVT prophylaxis. Continue Eraxis, Zosyn, as per infectious disease on the case. Continue wound VAC. Consider eventually discharge to LTAC, we'll discuss with social and political studies professor. Prognosis remains extremely poor and guarded. We will continue to follow. Critical care time is 40 minutes Time with Patient: Greater than 30
[2020-08-21] MEDS: AMIODARONE 200 MG TAB PO SCH (15:55)
[2020-08-21] MEDS: METOPROLOL TARTRATE 25 MG TAB PO SCH ×2 (15:55→20:30)
[2020-08-21 16:16] LABS: Glucose,Whole Blood 142 mg/dL (75-99)
[2020-08-21 19:54] LABS: Glucose,Whole Blood 135 mg/dL (75-99)
--- NOTE | 2020-08-21 23:19 | PN ---
PROGRESS NOTE DATE OF SERVICE: 08/21/2020 REASON FOR FOLLOWUP: Possible aspiration pneumonia and elevated white count. INTERVAL HISTORY: Patient is currently afebrile. The patient is hemodynamically stable. FiO2 is currently 40%. No significant purulent secretions thru the ET or diarrhea reported by the Nursing staff. PHYSICAL EXAMINATION: Blood pressure 114/55 with a pulse of 88, temperature 98. He is 99% on 40% FiO2. General description is an elderly male lying in bed in no distress. Respiratory system: Unlabored breathing with decreased breath sounds in the bases. No wheeze. Heart S1, S2. Regular rate and rhythm. Abdomen soft. No tenderness. LABS: Hemoglobin 8.5, white count 7.5, BUN of 37, creatinine 1.49. DIAGNOSTIC IMPRESSION AND PLAN: Patient with elevated white count, multifactorial in this patient with ischemic small bowel status post resection of portion of bowel midline now with worsening respiratory status and possible aspiration pneumonitis. Patient is covered with Zosyn and Eraxis to continue while monitoring clinical course closely. Continue supportive care. MMODL / IJN: [id number] /
[2020-08-21 23:34] LABS: Glucose,Whole Blood 163 mg/dL (75-99)
[2020-08-22] MEDS: DEXMEDETOMIDINE/0.9% NACL(PMX) 400 MCG in EMPTY BAG 1 BAG IV SCH ×4 (00:36→19:56)
[2020-08-22] MEDS: IPRATROPIUM-ALBUTEROL 3 ML NEB INHALATION SCH ×6 (03:00→23:34)
[2020-08-22 03:29] LABS: Glucose,Whole Blood 142 mg/dL (75-99)
[2020-08-22] MEDS: INSULIN ASPART (NovoLOG) 100 UNIT/ML VIAL SQ SCH ×6 (03:34→20:09)
[2020-08-22 04:40] LABS: HCT 25.2 % (39.0-53.0); HGB 7.7 gm/dL (13.0-17.5); Hypochromasia Marked; MCH 29.7 pg (25.0-35.0); MCHC 30.7 g/dL (31.0-37.0); MCV 96.7 fL (80.0-100.0); Platelet Count 196 k/uL (150-450); WBC 7.8 k/uL (3.8-10.6)
[2020-08-22 05:19] LABS: ABG Base Excess 1.8 mmol/L; ABG HCO3 27 mmol/L (21-25); ABG Oxygen Saturation 99.8 % (94-97); ABG PCO2 44 mmHg (35-45); ABG PO2 109 mmHg (83-108); ABG TCO2 28 mmol/L (19-24); Allen Test Performed? Yes
[2020-08-22 05:20] LABS: Calcium 9.4 mg/dL (8.4-10.2); Magnesium 2.2 mg/dL (1.6-2.3); Phosphorus 3.2 mg/dL (2.5-4.5); Potassium 4.3 mmol/L (3.5-5.1)
[2020-08-22 07:56] LABS: Glucose,Whole Blood 172 mg/dL (75-99)
[2020-08-22] MEDS: PIPERACILLIN-TAZOBACTAM 3.375 GM in SODIUM CHLORIDE 0.9% 100 ML IVPB SCH ×2 (08:02→15:56)
[2020-08-22] MEDS: LEVOTHYROXINE IVP 100 MCG/5 ML VIAL IV SCH (08:03)
[2020-08-22] MEDS: ASPIRIN 81 MG PO SCH (08:04)
[2020-08-22] MEDS: PANTOPRAZOLE 40 MG/10 ML VIAL IVP SCH ×2 (08:04→20:09)
[2020-08-22] MEDS: HEPARIN SODIUM,PORCINE 5,000 UNIT/ML 1 ML VIAL SQ SCH ×2 (08:05→14:12)
[2020-08-22] MEDS: METOPROLOL TARTRATE 25 MG TAB PO SCH ×3 (08:05→20:09)
[2020-08-22] MEDS: ANIDULAFUNGIN 100 MG in SODIUM CHLORIDE 0.9% 100 ML IVPB SCH (08:05)
[2020-08-22] MEDS: AMIODARONE 200 MG TAB PO SCH (08:05)
[2020-08-22] MEDS: APIXABAN 5 MG TAB PO SCH ×2 (08:14→20:09)
[2020-08-22] MEDS: ATORVASTATIN 40 MG TAB PO SCH (08:14)
[2020-08-22] MEDS: FORMOTEROL FUMARATE 20 MCG/2 ML NEBU INHALATION SCH ×2 (08:14→19:29)
[2020-08-22] MEDS: BUDESONIDE 1 MG/2 ML NEBU INHALATION SCH ×2 (08:14→19:29)
[2020-08-22] MEDS: CHLORHEXIDINE GLUCONATE 15 ML CUP MUCOUS MEM SCH ×2 (08:15→20:08)
--- NOTE | 2020-08-22 08:21 | P.PN ---
Subjective Progress Note Date: 08/22/20 Principal diagnosis: Symptomatic triple-vessel coronary artery disease, mild left ventricular dysfunction. Previuos medical history of stenting to his right coronary artery in 2002, hypertension, hyperlipidemia, hypothyroid status post partial thyroidectomy, previous tobacco dependence quit smoking 20 years ago, moderate chronic obstructive pulmonary disease with preoperative FEV1 of 56% of predicted value, bullous emphysema, remote history of pneumonia, type 2 diabetes mellitus with a preoperative hemoglobin A1c of 5.2%, chronic kidney disease stage III with a baseline creatinine of 1.4-1.5, family history of premature coronary artery disease with brother having had CABG at less than 50 years old. POD #35 double coronary artery bypass grafting using the left internal mammary artery to left anterior descending coronary artery, reverse greater saphenous vein graft from the aorta to the posterior descending coronary artery. Exclusion of the left atrial appendage using a 35 mm Atriclip, endoscopic harvesting of the right greater saphenous vein from the groin to above the ankle level, graft flow measurement using the etaskrim system, intraoperative transesophageal echocardiogram and epi-aortic scanning. Postoperative acute blood loss anemia, expected outcome from hemodilution and cardiopulmonary bypass. Postoperative paroxysmal atrial fibrillation, unexpected but common outcome after open heart surgery. Pneumoperitoneum, unexpected Acute on chronic kidney disease secondary to ATN Pneumatosis of the small bowel POD #29 ischemic bowel, small bowel resection Acute hypoxic respiratory failure with reintubation, prolonged mechanical ventilation, unexpected Acute abdomen, intraperitoneal hemorrhage POD #20 Exploratory laparotomy, washout of peritoneal cavity, ileostomy with small bowel resection POD #2 tracheostomy placement, EGD with PEG tube placement The patient is currently laying in bed in the intensive care unit in no acute distress. Currently remains in NSR with heart rate in the 60-70s. Remains on IV Eraxis, Zosyn by Dr. Frederick. Remains afebrile, white blood cell count 7.8. Sputum culture sent 08/17/20 after intubation and 08/18/20, negative. Sputum culture from 08/03/20 demonstrating aurora albicans, blood culture negative, CVC catheter tip removed 08/03/20 growing staph epidermis. Patient continues to have liquid light brown stool through ileostomy. Wound vac in place to mid abdominal incision, changed M-W-F. Currently sedated with minimal Precedex, does open eyes, moves all extremities, follows commands, shakes head no when asked if in pain. TF re-initiated yesterday. Did Cpap for 6 hours yesterday Objective - Vital Signs Vital signs: Vital Signs Temp 97.5 F L 08/22/20 08:00 Pulse 69 08/22/20 08:00 Resp 26 H 08/22/20 08:00 BP 114/55 08/21/20 21:00 Pulse Ox 98 08/22/20 08:00 Intake & Output 08/21/20 08/22/20 08/22/20 18:59 06:59 18:59 Intake Total 8276.905 0923.469 706 Output Total 1130 590 485 Balance 231.283 883.469 221 Weight 86.8 kg 88.4 kg Intake: IV 461 136 206 0.45 65 Anidulafungin 100 mg In 100 100 Sodium Chloride 0.9% 100 ml @ 84 mls/hr IVPB DAILY [facility] Rx#:[id number] Dextrose 5%-0.45% NaCl 1, 160 000 ml @ 40 mls/hr IV . Q24H [facility] Rx#:[id number] Piperacillin-Tazobactam 3 100 100 100 .375 gm In Sodium Chloride 0.9% 100 ml @ 25 mls/hr IVPB Q8HR [facility] Rx# :[id number] pressure bag 36 36 6 Intake, IV Titration 340.283 337.469 140 Amount Dexmedetomidine/0.9% NaCl 73.201 97.469 100 (Pmx) 400 mcg In Empty Bag 1 bag @ Titrate IV . Q0M [facility] Rx#:[id number] Sodium Chloride 0.45% 1, 140 240 40 000 ml @ 20 mls/hr IV . Q24H [facility] Rx#:[id number] propofoL 1,000 mg In 127.082 Empty Bag 1 bag @ Titrate IV .Q0M [facility] Rx#: [id number] Tube Feeding 160 400 160 Other 400 600 200 Output: Urine 780 590 135 Stool 350 350 Other: Voiding Method Indwelling Catheter Indwelling Catheter ABP, PAP, CO, CI - Last Documented Arterial Blood Pressure 110/46 Pulmonary Artery Pressure 33/14 Cardiac Output 6.7 Cardiac Index 3.1 - Constitutional General appearance: Present: cooperative, no acute distress - Respiratory Details: Lungs sounds diminished bilaterally. Respirations even, non-labored on mechanical ventilation. Current settings assist control mode, FiO2 40%, tidal volume 450, respiratory rate 24, PEEP 5. ABGs this morning 7.4/44/109/27/99%/1.8 on 40% FiO2 with a PEEP of 5. #8 Shiley tracheostomy present - Cardiovascular Details: S1, S2 present. Regular rate and rhythm, sinus rhythm on telemetry with rate in the 60-70s. Sternum stable. Palpable peripheral pulses bilaterally. No edema present. Heart hugger, antiembolism stockings, SCDs present. Right brachial PICC line present. Left radial arterial line present - Gastrointestinal Gastrointestinal Comment(s): Abdomen soft, nontender, nondistended. Active bowel sounds present. Ileostomy present to RLQ, stoma pink and moist, positive light brown liquid stool, 800 mL in the last 24 hours. LUQ PEG present, capped, receiving tube feeding bolus and free water flushes with minimal residual - Genitourinary Genitourinary Comment(s): Villafana catheter present draining clear, yellow urine. Output 1370 mL in the last 24 hours - Integumentary Integumentary Comment(s): Skin is warm and dry. Anterior chest incision well approximated and covered with dry intact dressing. Right lower extremity EVH site well approximated. Mid abdominal incision open, wound vac in place. Shear injury to shoulder blade healing. Stage II present to coccyx fold - Neurologic Neurologic: Present: CNII-XII intact - Musculoskeletal Musculoskeletal: Present: generalized weakness, strength equal bilaterally - Psychiatric Psychiatric: Present: A&O x's 3, appropriate affect - Allied health notes Allied health notes reviewed: nursing - Labs CBC & Chem 7: 08/22/20 04:30 08/22/20 04:30 Labs: Abnormal Lab Results - Last 24 Hours (Table) 08/21/20 08/21/20 08/21/20 Range/Units 08:18 12:26 16:14 RBC (4.30-5.90) m/uL Hgb (13.0-17.5) gm/dL Hct (39.0-53.0) % MCHC (31.0-37.0) g/dL RDW (11.5-15.5) % ABG pO2 (83-108) mmHg ABG HCO3 (21-25) mmol/L ABG Total CO2 (19-24) mmol/L ABG O2 Saturation (94-97) % Chloride (98-107) mmol/L BUN (9-20) mg/dL Creatinine (0.66-1.25) mg/dL Glucose (74-99) mg/dL POC Glucose (mg/dL) 125 H 117 H 142 H (75-99) mg/dL 08/21/20 08/21/20 08/22/20 Range/Units 19:52 23:32 03:27 RBC (4.30-5.90) m/uL Hgb (13.0-17.5) gm/dL Hct (39.0-53.0) % MCHC (31.0-37.0) g/dL RDW (11.5-15.5) % ABG pO2 (83-108) mmHg ABG HCO3 (21-25) mmol/L ABG Total CO2 (19-24) mmol/L ABG O2 Saturation (94-97) % Chloride (98-107) mmol/L BUN (9-20) mg/dL Creatinine (0.66-1.25) mg/dL Glucose (74-99) mg/dL POC Glucose (mg/dL) 135 H 163 H 142 H (75-99) mg/dL 08/22/20 08/22/20 08/22/20 Range/Units 04:30 04:30 05:25 RBC 2.60 L (4.30-5.90) m/uL Hgb 7.7 L (13.0-17.5) gm/dL Hct 25.2 L (39.0-53.0) % MCHC 30.7 L (31.0-37.0) g/dL RDW 16.0 H (11.5-15.5) % ABG pO2 109 H (83-108) mmHg ABG HCO3 27 H (21-25) mmol/L ABG Total CO2 28 H (19-24) mmol/L ABG O2 Saturation 99.8 H (94-97) % Chloride 110 H (98-107) mmol/L BUN 38 H (9-20) mg/dL Creatinine 1.36 H (0.66-1.25) mg/dL Glucose 148 H (74-99) mg/dL POC Glucose (mg/dL) (75-99) mg/dL 08/22/20 Range/Units 07:54 RBC (4.30-5.90) m/uL Hgb (13.0-17.5) gm/dL Hct (39.0-53.0) % MCHC (31.0-37.0) g/dL RDW (11.5-15.5) % ABG pO2 (83-108) mmHg ABG HCO3 (21-25) mmol/L ABG Total CO2 (19-24) mmol/L ABG O2 Saturation (94-97) % Chloride (98-107) mmol/L BUN (9-20) mg/dL Creatinine (0.66-1.25) mg/dL Glucose (74-99) mg/dL POC Glucose (mg/dL) 172 H (75-99) mg/dL Microbiology - Last 24 Hours (Table) 08/15/20 21:11 Blood Culture - Final Blood No Growth after 144 hours - Imaging and Cardiology Chest x-ray: image reviewed Assessment and Plan Assessment: 1. Symptomatic triple-vessel coronary artery disease, status post 2 vessel CABG 2. Mild left ventricular dysfunction 3. Previuos history of stenting to his right coronary artery in 2002 4. Hypertension 5. Hyperlipidemia 6. Hypothyroid status post partial thyroidectomy 7. Previous tobacco dependence with bullous emphysema 8. Moderate chronic obstructive pulmonary disease with preoperative FEV1 of 56% of predicted value 9. Remote history of pneumonia 10. Type 2 diabetes mellitus with a preoperative hemoglobin A1c of 5.2% 11. Chronic kidney disease stage III with a baseline creatinine of 1.4-1.5 12. Family history of premature coronary artery disease with brother having had CABG at less than 50 years old 13. Postoperative acute blood loss anemia, expected outcome 14. Postoperative paroxysmal atrial fibrillation, unexpected, status post exclusion of the left atrial appendage 15. Pneumoperitoneum, unexpected 16. Acute on chronic kidney disease with hyponatremia, hyperkalemia 17. Pneumatosis of the small bowel, status post small bowel resection 18. Sputum culture positive for pseudomonas fluorescens, second sputum positive for aurora 19. Acute hypoxic respiratory failure with reintubation, prolonged mechanical ventilation, S/P tracheostomy placement 20. Acute abdomen, intraperitoneal hemorrhage, S/P exploratory laparotomy, washout of peritoneal cavity, ileostomy with small bowel resection 21. Generalized debility secondary to above, S/P PEG placement for nutrition Plan: 1. Continue low dose aspirin, beta apolinar. 2. Continue amiodarone for afib prophylaxis. Will start Eliquis today 3. Mechanical ventilation, bronchodilators, inhaled steroids per pulmonology management. Use as minimal sedation as possible, CPAP again today and daily 4. Will monitor daily labs and chest x-rays. 5. GI/DVT prophylaxis. 6. Pain control with current medication regimen. 7. Insulin management per primary care service 8. Continue TF 9. Nephrology following. Avoid nephrotoxic agents. Lasix dosing/fluid management per nephrology recommendations 10. Strict accurate intake and output, daily weight 11. Continue IV Eraxis day #18, re-added Zosyn, day 6 (previously on from 07/24/20-08/05/20) per infectious disease. 12. Wound vac to be changed -- 13. DC planning continues, social work on board to assist. Anticipate DC to LTAC when able, likely end of the week 14. More recommendations to follow based on patient's clinical course. Time with Patient: Greater than 30
--- NOTE | 2020-08-22 08:42 | PN ---
PROGRESS NOTE Mr. Tinoco is a 80-year-old male who presented to undergo coronary artery bypass grafting that was performed by Dr. Cantor. Subsequently, he had a perforated viscus and abdominal bleeding requiring repeat surgery. He remains intubated, post tracheostomy and PEG tube placement. He is in sinus mechanism. He had episode of paroxysmal atrial fibrillation in the past. He is hemodynamically stable, following verbal commands. There is no evidence of ventricular ectopic activity. His urine output is stable. He continues to be on an aspirin once a day, metoprolol tartrate 25 mg 3 times a day, amiodarone 200 mg daily. PHYSICAL EXAMINATION: Blood pressure 107/50 with the heart rate in the 60s. LUNGS: Clear anteriorly. HEART: Regular rate and rhythm. S1, S2. No S3. No rub. ABDOMEN: Soft. PEG tube in place. Dressing noted. EXTREMITIES: No significant edema. Chest x-ray revealed an infiltrate involving the right lung with small pleural effusion. LAB DATA: Lab data revealed a BUN and creatinine 38 and 1.36, which is improving. His hemoglobin is 7.7. IMPRESSION: 1. Status post coronary artery bypass grafting. 2. Perforated viscus, status post surgery. 3. Respiratory failure, status post tracheostomy and PEG tube placement. 4. Respiratory failure requiring 3 reintubation. 5. History of chronic obstructive lung disease. 6. Chronic kidney disease, stable. 7. Hyperlipidemia. RECOMMENDATION: I will re-initiate treatment with a statin. Will continue current therapy. The plan is to transfer to long-term facility. The patient will benefit from being on anticoagulation in view of the recurrent episode of atrial fibrillation. MMODL / IJN: [id number] /
--- NOTE | 2020-08-22 08:44 | P.PN ---
Subjective Progress Note Date: 08/22/20 Principal diagnosis: CABG Patient remains on the vent, tolerated cpap for 6 hours yesterday. Off levophed, in NSR with heart rate in the 60-70s. Remains afebrile, white blood cell count 7.8. TF restarted yesterday. Patient continues to have liquid light brown stool through ileostomy. Currently sedated with minimal Precedex, does open eyes, moves all extremities, follows commands, shakes head no when asked if in pain. Objective - Vital Signs Vital signs: Vital Signs Temp 97.5 F L 08/22/20 08:00 Pulse 71 08/22/20 08:25 Resp 26 H 08/22/20 08:00 BP 114/55 08/21/20 21:00 Pulse Ox 98 08/22/20 08:00 Intake & Output 08/21/20 08/22/20 08/22/20 18:59 06:59 18:59 Intake Total 4005.469 4627.469 706 Output Total 1130 590 485 Balance 231.283 883.469 221 Weight 86.8 kg 88.4 kg Intake: IV 461 136 206 0.45 65 Anidulafungin 100 mg In 100 100 Sodium Chloride 0.9% 100 ml @ 84 mls/hr IVPB DAILY [facility] Rx#:[id number] Dextrose 5%-0.45% NaCl 1, 160 000 ml @ 40 mls/hr IV . Q24H [facility] Rx#:[id number] Piperacillin-Tazobactam 3 100 100 100 .375 gm In Sodium Chloride 0.9% 100 ml @ 25 mls/hr IVPB Q8HR [facility] Rx# :[id number] pressure bag 36 36 6 Intake, IV Titration 340.283 337.469 140 Amount Dexmedetomidine/0.9% NaCl 73.201 97.469 100 (Pmx) 400 mcg In Empty Bag 1 bag @ Titrate IV . Q0M [facility] Rx#:[id number] Sodium Chloride 0.45% 1, 140 240 40 000 ml @ 20 mls/hr IV . Q24H [facility] Rx#:[id number] propofoL 1,000 mg In 127.082 Empty Bag 1 bag @ Titrate IV .Q0M [facility] Rx#: [id number] Tube Feeding 160 400 160 Other 400 600 200 Output: Urine 780 590 135 Stool 350 350 Other: Voiding Method Indwelling Catheter Indwelling Catheter ABP, PAP, CO, CI - Last Documented Arterial Blood Pressure 110/46 Pulmonary Artery Pressure 33/14 Cardiac Output 6.7 Cardiac Index 3.1 - Exam Gen: awake, alert. intubated HEENT: normocephalic, atraumatic, dry mucous membranes, + central line. Resp: adequate lung expansion, symmetric breathing, no accessory muscle use CVS: good distal perfusion x 4, RRR, no murmurs, clicks, gallops GI: soft, NTTP, ND. Ileostomy bag and wound VAC present. : no SPT, no CVAT, malagon catheter is present MSK: No edema, no clubbing Neuro: Generally weak, non-focal, no sensory deficits, appropriate tone - Labs CBC & Chem 7: 08/22/20 04:30 08/22/20 04:30 Labs: Abnormal Lab Results - Last 24 Hours (Table) 08/21/20 08/21/20 08/21/20 Range/Units 12:26 16:14 19:52 RBC (4.30-5.90) m/uL Hgb (13.0-17.5) gm/dL Hct (39.0-53.0) % MCHC (31.0-37.0) g/dL RDW (11.5-15.5) % ABG pO2 (83-108) mmHg ABG HCO3 (21-25) mmol/L ABG Total CO2 (19-24) mmol/L ABG O2 Saturation (94-97) % Chloride (98-107) mmol/L BUN (9-20) mg/dL Creatinine (0.66-1.25) mg/dL Glucose (74-99) mg/dL POC Glucose (mg/dL) 117 H 142 H 135 H (75-99) mg/dL 08/21/20 08/22/20 08/22/20 Range/Units 23:32 03:27 04:30 RBC 2.60 L (4.30-5.90) m/uL Hgb 7.7 L (13.0-17.5) gm/dL Hct 25.2 L (39.0-53.0) % MCHC 30.7 L (31.0-37.0) g/dL RDW 16.0 H (11.5-15.5) % ABG pO2 (83-108) mmHg ABG HCO3 (21-25) mmol/L ABG Total CO2 (19-24) mmol/L ABG O2 Saturation (94-97) % Chloride (98-107) mmol/L BUN (9-20) mg/dL Creatinine (0.66-1.25) mg/dL Glucose (74-99) mg/dL POC Glucose (mg/dL) 163 H 142 H (75-99) mg/dL 08/22/20 08/22/20 08/22/20 Range/Units 04:30 05:25 07:54 RBC (4.30-5.90) m/uL Hgb (13.0-17.5) gm/dL Hct (39.0-53.0) % MCHC (31.0-37.0) g/dL RDW (11.5-15.5) % ABG pO2 109 H (83-108) mmHg ABG HCO3 27 H (21-25) mmol/L ABG Total CO2 28 H (19-24) mmol/L ABG O2 Saturation 99.8 H (94-97) % Chloride 110 H (98-107) mmol/L BUN 38 H (9-20) mg/dL Creatinine 1.36 H (0.66-1.25) mg/dL Glucose 148 H (74-99) mg/dL POC Glucose (mg/dL) 172 H (75-99) mg/dL Microbiology - Last 24 Hours (Table) 08/15/20 21:11 Blood Culture - Final Blood No Growth after 144 hours Assessment and Plan Plan: Acute hypoxic respiratory failure, b/l pleural effusion s/p L sided thoracentesis 08/15 - reintubated on 08/17 - management per pulmonary - S/P trach 08/20. Intraperitoneal hemorrhage, s/p ex lap, washout of peritoneal cavity and ileostomy on 08/02 Ischemic small bowel with pneumonperitoneum on 07/24 - surgery recs - eraxis, zosyn, dapto d/melody on 08/20. - S/P PEG placement 08/20 DM 2 - hold metformin - Inulin sliding scale - Follow blood sugars closely - A1C from 06/21/2020 5.2 P. 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 - Amio - metoprolol Hypotension -Off levo now Acute blood loss anemia and thrombocytopenia, anticipated outcome of surgery - follow CBC - transfuse as indicated COPD - on duonebs, pulmicort and formeterol. Coronary artery disease -Status post coronary artery bypass grafting -Cardiothoracic and cardiology following HTN - meds per CT surgery - follow BP CONNOR on CKD stage III - Resolved. - suspect due to fluid shifts - follow Cr - Avoid additional nephrotoxic agents - follow renal function closely after surgery Hypothyroidism status post partial thyroidectomy - synthroid Morbid obesity with BMI 30.5 -Outpatient structured weight loss Chronic: ADDY Jacobs'yony Disposition: Likely LTAC Anticipated discharge: 2 days.
--- NOTE | 2020-08-22 09:29 | XR ---
EXAMINATION TYPE: XR chest 1V portable DATE OF EXAM: 08/22/2020 COMPARISON: 08/21/2020 INDICATION: Respiratory failure TECHNIQUE: Single frontal view of the chest is obtained. FINDINGS: The heart size is normal. The pulmonary vasculature is prominent. There is increased opacity over the right lung and at the left lung base. This is worsening right. Tracheostomy tube is in the midline. Right PICC line is present with the tip in the superior vena cav a region. Sternotomy wires are in the midline. IMPRESSION: 1. Worsening right lung infiltrate with persistent left lower lobe infiltrate. 2. Lines and catheters are stable
--- NOTE | 2020-08-22 11:06 | P.PN ---
Subjective Progress Note Date: 08/22/20 CHIEF COMPLAINT: Status post CABG 2 vessels HISTORY OF PRESENT ILLNESS: Patient remains in the ICU. Lying in bed. He is status post peg tube and tracheostomy placement. Patient is tolerating his tube feedings. Patient is currently on trach collar. Patient is having stool through his ileostomy. Continues to have wound VAC in place for his abdominal incision. He is off of pressors. He is on Precedex. Afebrile WBC 7.8 hemoglobin 7.7 PHYSICAL EXAM: VITAL SIGNS: Reviewed. GENERAL: Well-developed in no acute distress. HEENT: No sclera icterus. Extraocular movements grossly intact. Moist buccal mucosa. Head is atraumatic, normocephalic. ABDOMEN: Soft. Abdominal incision with wound VAC in place. Ileostomy right side of abdomen with dark brown liquidy stool. PEG tube site clean dry and intact NEUROLOGIC: Is awake and able to follow simple commands ASSESSMENT: 1. Intraperitoneal hemorrhage status post exploratory laparotomy, washout of peritoneal cavity and ileostomy on 08/02/2020 2. Ischemic small bowel with evidence of pneumatosis status post small bowel resection on 07/24/2020 3. Acute hypoxic respiratory failure requiring mechanical ventilation 4. symptomatic triple-vessel coronary artery disease status post 2 vessel coronary bypass grafting surgery 5. Diabetes mellitus type 2 PLAN: -Titrate to feedings per dietitian -Continue wound VAC -Continue antibiotics per ID -Continue supportive care -DVT prophylaxis subcu Heparin and GI prophylaxis Protonix Physician Oil [employer]iner note has been reviewed by physician. Signing provider agrees with the documented findings, assessment, and plan of care. Objective - Vital Signs Vital signs: Vital Signs Temp 97.5 F L 08/22/20 08:00 Pulse 76 08/22/20 10:00 Resp 32 H 08/22/20 10:00 BP 114/55 08/21/20 21:00 Pulse Ox 98 08/22/20 10:00 Intake & Output 08/21/20 08/22/20 08/22/20 18:59 06:59 18:59 Intake Total 3228.320 3831.469 775 Output Total 1714 449 8014 Balance 231.283 883.469 -500 Weight 86.8 kg 88.4 kg Intake: IV 461 136 215 0.45 65 Anidulafungin 100 mg In 100 100 Sodium Chloride 0.9% 100 ml @ 84 mls/hr IVPB DAILY [facility] Rx#:[id number] Dextrose 5%-0.45% NaCl 1, 160 000 ml @ 40 mls/hr IV . Q24H [facility] Rx#:[id number] Piperacillin-Tazobactam 3 100 100 100 .375 gm In Sodium Chloride 0.9% 100 ml @ 25 mls/hr IVPB Q8HR [facility] Rx# :[id number] pressure bag 36 36 15 Intake, IV Titration 340.283 337.469 200 Amount Dexmedetomidine/0.9% NaCl 73.201 97.469 100 (Pmx) 400 mcg In Empty Bag 1 bag @ Titrate IV . Q0M [facility] Rx#:[id number] Sodium Chloride 0.45% 1, 140 240 100 000 ml @ 20 mls/hr IV . Q24H [facility] Rx#:[id number] propofoL 1,000 mg In 127.082 Empty Bag 1 bag @ Titrate IV .Q0M [facility] Rx#: [id number] Tube Feeding 160 400 160 Other 400 600 200 Output: Urine 780 590 275 Stool 350 1000 Other: Voiding Method Indwelling Catheter Indwelling Catheter Indwelling Catheter ABP, PAP, CO, CI - Last Documented Arterial Blood Pressure 110/44 Pulmonary Artery Pressure 33/14 Cardiac Output 6.7 Cardiac Index 3.1 - Labs CBC & Chem 7: 08/22/20 04:30 08/22/20 04:30 Labs: Abnormal Lab Results - Last 24 Hours (Table) 08/21/20 08/21/20 08/21/20 Range/Units 12:26 16:14 19:52 RBC (4.30-5.90) m/uL Hgb (13.0-17.5) gm/dL Hct (39.0-53.0) % MCHC (31.0-37.0) g/dL RDW (11.5-15.5) % ABG pO2 (83-108) mmHg ABG HCO3 (21-25) mmol/L ABG Total CO2 (19-24) mmol/L ABG O2 Saturation (94-97) % Chloride (98-107) mmol/L BUN (9-20) mg/dL Creatinine (0.66-1.25) mg/dL Glucose (74-99) mg/dL POC Glucose (mg/dL) 117 H 142 H 135 H (75-99) mg/dL 08/21/20 08/22/20 08/22/20 Range/Units 23:32 03:27 04:30 RBC 2.60 L (4.30-5.90) m/uL Hgb 7.7 L (13.0-17.5) gm/dL Hct 25.2 L (39.0-53.0) % MCHC 30.7 L (31.0-37.0) g/dL RDW 16.0 H (11.5-15.5) % ABG pO2 (83-108) mmHg ABG HCO3 (21-25) mmol/L ABG Total CO2 (19-24) mmol/L ABG O2 Saturation (94-97) % Chloride (98-107) mmol/L BUN (9-20) mg/dL Creatinine (0.66-1.25) mg/dL Glucose (74-99) mg/dL POC Glucose (mg/dL) 163 H 142 H (75-99) mg/dL 08/22/20 08/22/20 08/22/20 Range/Units 04:30 05:25 07:54 RBC (4.30-5.90) m/uL Hgb (13.0-17.5) gm/dL Hct (39.0-53.0) % MCHC (31.0-37.0) g/dL RDW (11.5-15.5) % ABG pO2 109 H (83-108) mmHg ABG HCO3 27 H (21-25) mmol/L ABG Total CO2 28 H (19-24) mmol/L ABG O2 Saturation 99.8 H (94-97) % Chloride 110 H (98-107) mmol/L BUN 38 H (9-20) mg/dL Creatinine 1.36 H (0.66-1.25) mg/dL Glucose 148 H (74-99) mg/dL POC Glucose (mg/dL) 172 H (75-99) mg/dL Microbiology - Last 24 Hours (Table) 08/15/20 21:11 Blood Culture - Final Blood No Growth after 144 hours
--- NOTE | 2020-08-22 11:27 | P.PN ---
Subjective Patient is seen in follow-up for acute kidney injury. Renal function improving. Off vasopressors. Status post trach and PEG. Receiving tube feeding at goal. Hemodynamically stable. Vital signs are stable. General: The patient appeared well nourished and normally developed. HEENT: Head exam is unremarkable. Tracheostomy noted. LUNGS: Breath sounds decreased. HEART: Rate and Rhythm are regular. ABDOMEN: Soft, nondistended. Ileostomy and PEG tube noted. EXTREMITITES: No edema. Objective - Vital Signs Vital signs: Vital Signs Temp 97.5 F L 08/22/20 08:00 Pulse 79 08/22/20 11:00 Resp 36 H 08/22/20 11:00 BP 114/55 08/21/20 21:00 Pulse Ox 97 08/22/20 11:00 Intake & Output 08/21/20 08/22/20 08/22/20 18:59 06:59 18:59 Intake Total 6495.858 5400.469 775 Output Total 5225 745 3281 Balance 231.283 883.469 -500 Weight 86.8 kg 88.4 kg Intake: IV 461 136 215 0.45 65 Anidulafungin 100 mg In 100 100 Sodium Chloride 0.9% 100 ml @ 84 mls/hr IVPB DAILY [facility] Rx#:[id number] Dextrose 5%-0.45% NaCl 1, 160 000 ml @ 40 mls/hr IV . Q24H [facility] Rx#:[id number] Piperacillin-Tazobactam 3 100 100 100 .375 gm In Sodium Chloride 0.9% 100 ml @ 25 mls/hr IVPB Q8HR [facility] Rx# :[id number] pressure bag 36 36 15 Intake, IV Titration 340.283 337.469 200 Amount Dexmedetomidine/0.9% NaCl 73.201 97.469 100 (Pmx) 400 mcg In Empty Bag 1 bag @ Titrate IV . Q0M [facility] Rx#:[id number] Sodium Chloride 0.45% 1, 140 240 100 000 ml @ 20 mls/hr IV . Q24H [facility] Rx#:[id number] propofoL 1,000 mg In 127.082 Empty Bag 1 bag @ Titrate IV .Q0M [facility] Rx#: [id number] Tube Feeding 160 400 160 Other 400 600 200 Output: Urine 780 590 275 Stool 350 1000 Other: Voiding Method Indwelling Catheter Indwelling Catheter Indwelling Catheter ABP, PAP, CO, CI - Last Documented Arterial Blood Pressure 113/52 Pulmonary Artery Pressure 33/14 Cardiac Output 6.7 Cardiac Index 3.1 - Labs CBC & Chem 7: 08/22/20 04:30 08/22/20 04:30 Labs: Abnormal Lab Results - Last 24 Hours (Table) 08/21/20 08/21/20 08/21/20 Range/Units 12:26 16:14 19:52 RBC (4.30-5.90) m/uL Hgb (13.0-17.5) gm/dL Hct (39.0-53.0) % MCHC (31.0-37.0) g/dL RDW (11.5-15.5) % ABG pO2 (83-108) mmHg ABG HCO3 (21-25) mmol/L ABG Total CO2 (19-24) mmol/L ABG O2 Saturation (94-97) % Chloride (98-107) mmol/L BUN (9-20) mg/dL Creatinine (0.66-1.25) mg/dL Glucose (74-99) mg/dL POC Glucose (mg/dL) 117 H 142 H 135 H (75-99) mg/dL 08/21/20 08/22/20 08/22/20 Range/Units 23:32 03:27 04:30 RBC 2.60 L (4.30-5.90) m/uL Hgb 7.7 L (13.0-17.5) gm/dL Hct 25.2 L (39.0-53.0) % MCHC 30.7 L (31.0-37.0) g/dL RDW 16.0 H (11.5-15.5) % ABG pO2 (83-108) mmHg ABG HCO3 (21-25) mmol/L ABG Total CO2 (19-24) mmol/L ABG O2 Saturation (94-97) % Chloride (98-107) mmol/L BUN (9-20) mg/dL Creatinine (0.66-1.25) mg/dL Glucose (74-99) mg/dL POC Glucose (mg/dL) 163 H 142 H (75-99) mg/dL 08/22/20 08/22/20 08/22/20 Range/Units 04:30 05:25 07:54 RBC (4.30-5.90) m/uL Hgb (13.0-17.5) gm/dL Hct (39.0-53.0) % MCHC (31.0-37.0) g/dL RDW (11.5-15.5) % ABG pO2 109 H (83-108) mmHg ABG HCO3 27 H (21-25) mmol/L ABG Total CO2 28 H (19-24) mmol/L ABG O2 Saturation 99.8 H (94-97) % Chloride 110 H (98-107) mmol/L BUN 38 H (9-20) mg/dL Creatinine 1.36 H (0.66-1.25) mg/dL Glucose 148 H (74-99) mg/dL POC Glucose (mg/dL) 172 H (75-99) mg/dL Microbiology - Last 24 Hours (Table) 08/15/20 21:11 Blood Culture - Final Blood No Growth after 144 hours Assessment and Plan Plan: Assessment: 1. Acute kidney injury secondary to hemodynamic ATN. No hydronephrosis noted on computed tomography scan. No proteinuria on UA. Nonoliguric. Renal function improved. Creatinine 1.36 today. 2. Chronic kidney disease stage III with baseline creatinine in the range of 1.2-1.5 secondary to nephrosclerosis. UA from June 2020 was benign. 3. Coronary artery disease status post 2 vessel CABG on July 18. 4. Hypervolemic hyponatremia. Resolved. s/p diuresis. 5. Bowel ischemia status post exploratory laparotomy and resection. Underwent another exploratory laparotomy on August 02 with ileostomy. 6. Diabetes mellitus. 7. Volume overload. Improved with diuresis. 8. A. fib maintained on Lopressor. 9. Anemia of chronic kidney disease and post-cabg. Status post blood transfusion this admission. Maintained on Aranesp. Plan: Maintain tube feeding. Also receiving free water flushes 200 mL every 4 hours. Avoid nephrotoxins. Continue to monitor renal function and urine output.
[2020-08-22 12:18] LABS: Glucose,Whole Blood 146 mg/dL (75-99)
[2020-08-22] MEDS: SODIUM CHLORIDE 0.45% 1,000 ML IV SCH (12:41)
--- NOTE | 2020-08-22 14:34 | P.PN ---
Subjective Progress Note Date: 08/22/20 Principal diagnosis: Coronary artery disease, status post 2 vessel CABG. 79-year-old white male patient with past medical history of hypertension, hyperlipidemia, moderate to severe COPD with the baseline FEV1 of 56% of predicted who came in on 07/18/2020 for elective two-vessel bypass grafting with PABLO to LAD, and SVG to the PDA. He was seen in the intensive care unit [facility] surgery, patient was successfully weaned and extubated from mechanical ventilator and under 6 hours following his OR exit, is currently awake and alert, sitting in the chair, he is currently on 2 L of oxygen, his pulse ox is 98%, hemodynamically he stable, blood pressure is 106/51, PA pressures 35/11, CVP is 8, no fever or chills, IV fluids including the 0.9 normal saline at a rate of 30 ML per hour, insulin is 4.5 units per hour, no vasoactive drips. Today's chest x-ray shows a pneumoperitoneum with lucency present underneath the right hemidiaphragm. He has left pleural and mediastinal chest tube, and there has been 500 mL of serosanguineous output from the left pleural and 350 mL from the mediastinal chest tube in the last 24 hours. Is having some mild discomfort under the right rib cage, but no acute distress, abdomen is distended but soft, he is hemodynamically stable, he is in sinus mechanism, no nausea vomiting or diarrhea. CT of the abdomen and pelvis is pending today's labs have been reviewed, showing white blood cell count of 11.9, hemoglobin of 9, sodium is 133, the rest of the electrolytes were within normal limits, B1 is 25 creatinine is 1.18 The patient is seen today 07/20/2020 in follow-up in the intensive care unit. He is currently sitting up in a chair at the bedside. Awake and alert in no acute distress. This is postoperative day #2, two-vessel coronary artery bypass surgery. He is currently on 2 L/m per nasal cannula maintaining good O2 saturat ion in the 90s. He did have issues with atrial fibrillation and is currently on Cardizem drip at 10 mg per hour. He did receive IV amiodarone, initiated on by mouth today. 0.9 normal saline at KVO. Chest x-ray reveals removal of mediastinal drains. Right-sided pneumoperitoneum is no longer appreciated. Left-sided chest tube remains in place. Bibasilar patchy atelectasis remains. White count 18.2. Hemoglobin 8.9. Platelet count 99,000. Sodium 127. Potassium 5.0. Creatinine 1.37. He is pulling approximately [id number] ML's on the incentive spirometer. Continued on bronchodilators. Heparin for DVT prophylaxis. Patient is seen today 07/22/2020 in follow-up on the intensive care unit. He is currently sitting up in a chair at the bedside. He is having complaints of increasing shortness of breath. He is doing less on his incentive spirometer. Chest x-ray reveals small right pleural effusion with adjacent atelectasis and/or consolidation. He is currently maintaining O2 saturations in the low 90s on 3 L/m per nasal cannula. Respiratory rate 32. He is afebrile. Blood pre ssure stable. He did have issues with atrial fibrillation with rapid ventricular response last evening. He is on a Cardizem drip at 10 mg per hour. He will be transitioned to Eliquis. On oral amiodarone. 0.9 normal saline at 20 ML's per hour. Currently in sinus rhythm. White count 16.8. Hemoglobin 8.8. Sodium 124. Potassium 5.3. Bicarb 20. Creatinine 1.62. AST 147. ALT 130. He is still having issues with hypoactive bowel and not passing flatus or bowel movement since surgery. He remains on bronchodilators and IV Solu-Medrol. The patient is seen today 07/23/2020 in follow-up in the intensive care unit. Postoperative day #5. He is awake and alert in no acute distress. Currently sitting up in a chair at the bedside. He is feeling stronger today. Less short of breath. Maintaining O2 saturations in the 90s on 3 L/m per nasal cannula. Chest x-ray continues to show a small right pleural effusion with prominent right greater than left basilar atelectasis. He is doing better with his incentive spirometer. White count 15.2. Hemoglobin 81.1. Sodium 124. Potassium 5.3. Creatinine 1.84. AST 136. ALT 193. Albumin 3.4. No IV fluids currently. Is continued on bronchodilators, IV Solu-Medrol, anticoagulated with Eliquis. Still has not had a bowel movement. The patient is seen today 08/09/2020 in follow-up in the intensive care unit. He was extubated again yesterday 08/08/2020. He is currently on 2 L/m per nasal cannula. TPN at 75 ML's per hour. 0.9#10 ML's per hour. Amiodarone at 0.25 mg/m. Insulin drip at 7 units per hour. His x-ray reveals some evidence of fluid volume overload. He is also quite edematous. He'll receive Lasix 40 mg IVP 1 today. He'll also be placed on BiPAP 07/22 on 40% FiO2 as he remains slightly tachypneic and shallow breathing. He is quite weak and debilitated today. He remains on bronchodilators. Eraxis. Daptomycin. Being nourished with lipid and TPN. The patient is seen today 08/11/2020 in follow-up in the intensive care unit. He is currently resting fairly comfortably in bed. Maintaining O2 saturation in the 90s on 2 L/m per nasal cannula. He did wear BiPAP last night at 12/5 and 28% FiO2. He is being nourished with TPN at 75 ML's per hour. He is on insulin at 5.5 units per hour. He remains on amiodarone at 0.25 mg/m. White count 10.0. Hemoglobin 9.2. Sodium 145. Potassium 4.0. Creatinine 1.50. Glucose 120. Chest xray reveals persistent bilateral lung opacities and pleural effusions. No significant change. Remains on DuoNeb inhalations, daptomycin, meropenem. Remains slightly tachycardic. Temperature 99.2 axillary. Needs increased encouragement regarding the use of the incentive spirometer. The patient is seen today 08/12/2020 in follow-up in the intensive care unit. He is awake and alert in no acute distress. He is maintaining O2 saturation in the 90s on 2 L/m per nasal cannula. He has TPN at 75 ML's per hour. 0.9 normal sitting at 10 MLS per hour. Insulin drip at 4 units per hour. Chest x-ray showed a questionable left apical pneumothorax. Computed tomography scan of the chest revealed advanced upper lung emphysema but no convincing pneumothorax. There is moderate bilateral pleural effusions with atelectatic collapse of the entire bilateral lower lobes. Small pericardial effusion. He continues to breathe quite shallow with tachypnea. He remains quite weak and debilitated. Currently afebrile. Hemodynamically stable. White count 10.8. Hemoglobin 9.8. Sodium 143. Potassium 4.1. Creatinine 1.44. Glucose 152. AST 49. ALT 62. Albumin 2.5. He remains on daptomycin, Eraxis, bronchodilators. The patient is seen today 08/13/2020 in follow-up in the intensive care unit. He is currently resting fairly comfortably in bed. He remains awake. He is still very weak and debilitated. Physical therapy is working with the patient. He continues with rapid shallow breathing despite encouraging him to take slower deeper breaths. He is maintaining good O2 saturation in the 90s on 2 L/m per nasal cannula. He has TPN for nourishment at 75 ML's per hour. 0.9#10 mL per hour. Insulin drip at 7 units per hour. Chest x-ray continued showing evidence of COPD and continue small to moderate effusions with adjacent atelectasis/consolidations. He continues to need increased encouragement to utilize the incentive spirometer and cough and deep breathing exercises. White count 11.7. Hemoglobin 10.0. Sodium 144. Potassium 4.2. Creatinine 1.47. Glucose 151. He remains on DuoNeb inhalations, Pulmicort inhalations. Antibiotics in the form of daptomycin. Eraxis. Heparin for DVT prophylaxis. The patient is seen today 08/16/2020 in follow-up in the intensive care unit. Postoperative day #29 of his coronary artery bypass grafting. He is awake and alert in no acute distress. He is currently sitting up in a chair at the bedside. Maintaining O2 saturations up to 99% on 5 L/m per nasal cannula. He remains tachypneic. He has a respiratory pattern of rapid shallow breathing. Chest x-ray reveals COPD with continued small pleural effusions and patchy atelectasis in the bases. He is status post left-sided thoracentesis with 1.4 L of turbid blood tinged fluid removed yesterday. He is status post 5 units of packed red blood cells this admission. Current hemoglobin 10.3. Platelet count 370. White count 13.5. Sodium 142. Potassium 4.7. Creatinine 1.55. He remains on bronchodilators, Mucomyst, Pulmicort. Insulin drip at 3.5 units per hour. Being nourished with Glucerna. TPN's at 35 mL per hour. 0.9 normal sis ine at 10 MLS per hour. The patient is seen today 08/17/2020 in follow-up in the intensive care unit. This is postoperative day #30 of his coronary artery bypass grafting. He is currently resting fairly comfortably in bed. He is on BiPAP 15/5 and 35% FiO2. He is 0.9 normal saline at 50 MLS per hour. He is awake. Chest x-ray continues to show stable bibasilar infiltrates. There is some improvement in the right- sided pleural effusion. White count 11.9. Hemoglobin 10.3. Platelets 285. S odium 136. Potassium 5.4. Creatinine 1.99. Glucose 147. He remains on DuoNeb inhalations, Pulmicort and Perforomist inhalations, Eraxis, Zosyn, daptomycin. Follow-up blood cultures reveal no growth to date. The patient is seen today 08/18/2020 in follow-up in the intensive care unit. Yesterday he developed worsening shortness of breath despite being on BiPAP. He was quite tachypneic and had desaturations. He was subsequently reintubated and placed back on the mechanical ventilator. Assist-control rate of 24, tidal volume 450, FiO2 of 40% and a PEEP of 5. Morning blood gases reveal a P O2 of 168, pCO2 52, pH 7.38. This breath and FiO2 of 60%. Left radial arterial line placed yesterday. He remains on propofol at 40 mcg/kg/m. Heparin drip per weight-based protocol. 0.9 normal sitting at 25 ML's per hour. Norepinephrine at 4 mcg/m. He is being nourished with Nepro 180 MLS every 4 hours with free water flushes. Chest x-ray reveals evidence of congestive heart failure with mild cardiomegaly and small bilateral pleural effusions with mild central vascular congestion and associated basilar atelectasis. He is status post 5 units of packed red blood cells this admission. Current hemoglobin 8.3. White count 9.2. Sodium 145. Potassium 4.3. Creatinine 2.30. Glucose 136. Magnesium 2.6. He remains on bronchodilators, antibiotics in the form of Zosyn and daptomycin. Remains on Eraxis. Ostomy functioning. The patient is seen today 08/19/2020 in follow-up in the intensive care unit. He remains intubated on the mechanical ventilator. Assist-control mode. Rate of 24. Ativan for 50. FiO2 40% and a PEEP of 5. Morning blood gases revealed a pO2 of 87, pCO2 46, pH 7.39. He remains sedated on propofol at 35 mcg/kg/m. Requiring norepinephrine at 1.7 mcg/m. D5W at 20 mL per hour. Heparin drip weight-based protocol. Today's chest x-ray reveals no evidence of pneumothorax. There is a stable right pleural effusion. Endotracheal NG tube locations are good. There is a new patchy airspace disease in the right upper lobe. Some worsening pulmonary edema in the right lower lobe. He remains on DuoNeb inhalations, Pulmicort and Perforomist inhalations. He remains on antibiotics in the form of daptomycin, Eraxis, Zosyn. White count 8.6. Hemoglobin 8.4. D- dimer 1.79. Sodium 142. Potassium 3.8. Creatinine 1.78. Dopplers of the bilateral lower extremities negative for DVT. Plan is for possible tracheostomy tube placement tomorrow with Dr. Cantor. The patient is seen today 08/20/2020 in follow-up in the intensive care unit. He remains intubated on mechanical ventilator. Currently an assist-control mode with a rate of 24, tidal volume 450, FiO2 40% and a PEEP of 5. Morning blood gases reveal a pO2 of 96, pCO2 45, pH 7.40. He remains on norepinephrine at 0.03 mcg/kg/m. Propofol at 35 mcg/kg/m. D5 and half-normal saline at 40 ML's per hour. Tube feeding's are currently on hold. The plan is for tracheostomy tube insertion and possible PEG tube placement today. Chest x-ray shows evidence of mild fluid volume overload and mild cardiomegaly with small bilateral pleural effusions and mild central vascular congestion. Persistent basilar acute infiltrate/atelectasis noted. Back on chronic emphysematous changes. No significant change compared to yesterday. White count 6.7. Hemoglobin 8.4. Sodium 137. Potassium 4.6. Creatinine 1.59. Remains on Zosyn, daptomycin, and Eraxis. Reevaluated today on 08/21/2020, patient remains in the intensive care unit, remains intubated and mechanically ventilated. He is now on assist control rate of 24 tidal volume is 450 FiO2 is 40% and PEEP of 5. ABG showed a pO2 of 103 EC O2 of 50 pH of 7.35. Patient is on multiple drips including D5 4 5 at 50 mL per hour. Propofol at 25 mcg/kg/m, he is off norepinephrine. Patient underwent tracheostomy and PEG tube placement yesterday, and the plan is to start using the PEG tube today for enteral support. I also plan to give the patient trials of weaning with pressure support of 12 and CPAP. Ileostomy seems to be functioning well. Wound VAC seems to be intact in the mid abdomen. PEG tube seems to be intact. Tracheostomy seems to be functional well. Patient had 2 vessel bypass surgery on 07/18/20, he had intraperitoneal hemorrhage requiring exploratory laparotomy and ileostomy on 08/02. Extubated and reintubated 3 times. Presently intubated and on mechanical ventilation via tracheostomy. Again I plan to give the patient weaning trial with pressure support and CPAP today. Chest x-ray showed minimal bibasilar atelectasis, no significant pleural effusion. CBC today is relatively normal. Basic metabolic profile is normal. BUN is 37 creatinine is 1.49. Reevaluated today on 08/22/2020, patient remains in the ICU, intubated and mechanically ventilated. He is presently on assist control rate of 24 tidal volume is 450 FiO2 40% PEEP of 5. ABG showed a pO2 of 109, pCO2 of 44 pH of 7.40. Patient tolerated over 6 hours of pressure support and CPAP mode of mechanical ventilation yesterday. Had to be placed back on assist control mode at night. Patient remains on Precedex at 0.7 mcg/kg per hour. He is on bolus tube feedings receiving Nepro. He is switched now against a pressure support of 12 and CPAP of 5, FiO2 at 40%, and I plan to switch him to trach collar today. This will be done and the patient will be kept on trach collar as long as tolerated. Chest x-ray today is basically about the same. Labs were all reviewed, WBC count is 7.8 hemoglobin is 7.7 and electrolytes are normal BUN is 38 creatinine is 1.36 Objective - Vital Signs Vital signs: Vital Signs Temp 97.8 F 08/22/20 12:00 Pulse 74 08/22/20 14:00 Resp 34 H 08/22/20 14:00 BP 114/55 08/21/20 21:00 Pulse Ox 98 08/22/20 14:00 Intake & Output 08/21/20 08/22/20 08/22/20 18:59 06:59 18:59 Intake Total 6738.962 5700.469 1244 Output Total 1323 471 7091 Balance 231.283 883.469 -191 Weight 86.8 kg 88.4 kg Intake: IV 461 136 224 0.45 65 Anidulafungin 100 mg In 100 100 Sodium Chloride 0.9% 100 ml @ 84 mls/hr IVPB DAILY [facility] Rx#:[id number] Dextrose 5%-0.45% NaCl 1, 160 000 ml @ 40 mls/hr IV . Q24H [facility] Rx#:[id number] Piperacillin-Tazobactam 3 100 100 100 .375 gm In Sodium Chloride 0.9% 100 ml @ 25 mls/hr IVPB Q8HR [facility] Rx# :[id number] pressure bag 36 36 24 Intake, IV Titration 340.283 337.469 260 Amount Dexmedetomidine/0.9% NaCl 73.201 97.469 100 (Pmx) 400 mcg In Empty Bag 1 bag @ Titrate IV . Q0M [facility] Rx#:[id number] Sodium Chloride 0.45% 1, 140 240 160 000 ml @ 20 mls/hr IV . Q24H [facility] Rx#:[id number] propofoL 1,000 mg In 127.082 Empty Bag 1 bag @ Titrate IV .Q0M [facility] Rx#: [id number] Tube Feeding 160 400 360 Other 400 600 400 Output: Urine 780 590 435 Stool 350 1000 Other: Voiding Method Indwelling Catheter Indwelling Catheter Indwelling Catheter ABP, PAP, CO, CI - Last Documented Arterial Blood Pressure 102/49 Pulmonary Artery Pressure 33/14 Cardiac Output 6.7 Cardiac Index 3.1 - Exam GENERAL EXAM: Revealed 79-year-old white male on mechanical ventilation, however the patient is arousable, and follows simple instructions. HEAD: Normocephalic/atraumatic. HEENT: PERRLA, EOMI, nonicteric, no neck masses, no JVD, tracheostomy seems to be intact. CHEST: No chest wall deformity. Symmetrical expansion. Midsternal incision is clean dry and intact LUNGS: Equal air entry with scattered crackles in the bases. CVS: Regular rate and rhythm, normal S1 and S2, no gallops, no murmurs, no rubs ABDOMEN: Abdominal incision with wound VAC in place. Ileostomy the right side of the abdomen, seems to be functional, PEG tube is intact. EXTREMITIES: No clubbing, no edema, no cyanosis, 2+ pulses and upper and lower extremities. MUSCULOSKELETAL: Muscle strength and tone normal. SPINE: No scoliosis or deformity SKIN: No rashes CENTRAL NERVOUS SYSTEM: Intubated, sedated. Unable to assess PSYCHIATRIC: Unable to assess. - Labs CBC & Chem 7: 08/22/20 04:30 08/22/20 04:30 Labs: Abnormal Lab Results - Last 24 Hours (Table) 08/21/20 08/21/20 08/21/20 Range/Units 16:14 19:52 23:32 RBC (4.30-5.90) m/uL Hgb (13.0-17.5) gm/dL Hct (39.0-53.0) % MCHC (31.0-37.0) g/dL RDW (11.5-15.5) % ABG pO2 (83-108) mmHg ABG HCO3 (21-25) mmol/L ABG Total CO2 (19-24) mmol/L ABG O2 Saturation (94-97) % Chloride (98-107) mmol/L BUN (9-20) mg/dL Creatinine (0.66-1.25) mg/dL Glucose (74-99) mg/dL POC Glucose (mg/dL) 142 H 135 H 163 H (75-99) mg/dL 08/22/20 08/22/20 08/22/20 Range/Units 03:27 04:30 04:30 RBC 2.60 L (4.30-5.90) m/uL Hgb 7.7 L (13.0-17.5) gm/dL Hct 25.2 L (39.0-53.0) % MCHC 30.7 L (31.0-37.0) g/dL RDW 16.0 H (11.5-15.5) % ABG pO2 (83-108) mmHg ABG HCO3 (21-25) mmol/L ABG Total CO2 (19-24) mmol/L ABG O2 Saturation (94-97) % Chloride 110 H (98-107) mmol/L BUN 38 H (9-20) mg/dL Creatinine 1.36 H (0.66-1.25) mg/dL Glucose 148 H (74-99) mg/dL POC Glucose (mg/dL) 142 H (75-99) mg/dL 08/22/20 08/22/20 08/22/20 Range/Units 05:25 07:54 12:16 RBC (4.30-5.90) m/uL Hgb (13.0-17.5) gm/dL Hct (39.0-53.0) % MCHC (31.0-37.0) g/dL RDW (11.5-15.5) % ABG pO2 109 H (83-108) mmHg ABG HCO3 27 H (21-25) mmol/L ABG Total CO2 28 H (19-24) mmol/L ABG O2 Saturation 99.8 H (94-97) % Chloride (98-107) mmol/L BUN (9-20) mg/dL Creatinine (0.66-1.25) mg/dL Glucose (74-99) mg/dL POC Glucose (mg/dL) 172 H 146 H (75-99) mg/dL Microbiology - Last 24 Hours (Table) 08/15/20 21:11 Blood Culture - Final Blood No Growth after 144 hours Assessment and Plan Assessment: Impression: Status post two-vessel CABG with PABLO to LAD and SVG to PDA on 07/18/2020. Postoperative respiratory failure, unexpected, failure to wean, felt to be multifactorial. Patient had to be reintubated 3 times since his surgery. Postoperative intraperitoneal hemorrhage requiring exploratory laparotomy ileos jamey on 08/02, previous surgery on 07/24/20 for ischemic bowel, requiring bowel resection. Status post tracheostomy and PEG tube placement on 08/20/2020. Bilateral pleural effusions requiring left thoracentesis on 08/15/2020. History of hypothyroidism. History of moderate severe COPD, FEV1 of 53%. Acute on chronic kidney disease, patient has a baseline kidney disease stage III. Type 2 diabetes. Postoperative acute blood loss anemia, related to his multiple surgeries. History of coronary artery disease and previous stent placement. Recommendation: Continue present ventilatory support. We'll try weaning the patient today on trach collar since he seems to be tolerating pressure support and CPAP well. Continue enteral bolus feedings. Continue antibiotics as per infectious disease on the case. Continue bronchodilators. Continue low-dose aspirin and beta blockers. Continue bronchodilators. Continue GI and DVT prophylaxis. Continue Eraxis, Zosyn, as per infectious disease on the case. Continue wound VAC. Consider eventually discharge to LTAC, we'll discuss with social insurance administrator. Prognosis remains extremely poor and guarded. We will continue to follow. Critical care time is 35 minutes Time with Patient: Greater than 30
[2020-08-22 15:54] LABS: Glucose,Whole Blood 120 mg/dL (75-99)
[2020-08-22 19:49] LABS: Glucose,Whole Blood 178 mg/dL (75-99)
--- NOTE | 2020-08-22 23:03 | PN ---
PROGRESS NOTE DATE OF SERVICE: 08/22/2020 REASON FOR FOLLOWUP: Pneumonia and elevated white count. INTERVAL HISTORY: The patient is currently afebrile. The patient is hemodynamically stable, not on pressor support. The patient is currently at 40%. No significant purulent secretions in the ET or diarrhea has been reported. The patient himself was unable to provide any history but he is slightly more awake and alert. PHYSICAL EXAMINATION: Blood pressure 105/44 with a pulse of 76, temperature 97.6. He is 100% on 40% FiO2. General description is an elderly male lying in bed in no distress. Respiratory system: Unlabored breathing, decreased breath sounds in the base. No wheeze. Heart S1, S2. Regular rate and rhythm. ABDOMEN: Soft, no tenderness. LABS: Hemoglobin 7.7, white count 7.8. BUN of 38 and creatinine is 1.36. DIAGNOSTIC IMPRESSION AND PLAN: Patient with elevated white count has been multifactorial in this patient did have a component of aspiration pneumonia, covered with Zosyn. White count is normal. Sputum culture will be followed and monitor clinical course closely. MMODL / IJN: [id number] /
[2020-08-22 23:22] LABS: Glucose,Whole Blood 131 mg/dL (75-99)
[2020-08-23] MEDS: PIPERACILLIN-TAZOBACTAM 3.375 GM in SODIUM CHLORIDE 0.9% 100 ML IVPB SCH ×3 (00:22→15:57)
[2020-08-23] MEDS: INSULIN ASPART (NovoLOG) 100 UNIT/ML VIAL SQ SCH ×6 (00:22→20:35)
[2020-08-23] MEDS: DEXMEDETOMIDINE/0.9% NACL(PMX) 400 MCG in EMPTY BAG 1 BAG IV SCH ×4 (02:41→16:56)
[2020-08-23] MEDS: IPRATROPIUM-ALBUTEROL 3 ML NEB INHALATION SCH ×5 (03:30→20:25)
[2020-08-23 03:59] LABS: Glucose,Whole Blood 155 mg/dL (75-99)
[2020-08-23 04:33] LABS: Anisocytosis Slight; HCT 24.2 % (39.0-53.0); HGB 7.6 gm/dL (13.0-17.5); Hypochromasia Moderate; MCHC 31.6 g/dL (31.0-37.0); MCV 95.1 fL (80.0-100.0); Mean Platelet Volume 8.9; Platelet Count 245 k/uL (150-450); RBC 2.54 m/uL (4.30-5.90); RDW 16.2 % (11.5-15.5); WBC 8.3 k/uL (3.8-10.6)
[2020-08-23 04:56] LABS: Albumin 2.5 g/dL (3.5-5.0); Calcium 9.1 mg/dL (8.4-10.2); Total Bilirubin 0.6 mg/dL (0.2-1.3); Total Protein 5.3 g/dL (6.3-8.2)
--- NOTE | 2020-08-23 06:42 | XR ---
EXAMINATION TYPE: XR chest 1V portable DATE OF EXAM: 08/23/2020 CLINICAL HISTORY: Difficulty breathing progress study. TECHNIQUE: Single AP portable semiupright view of the chest is obtained. COMPARISON: Chest x-ray from one day earlier and older studies. FINDINGS: Stable right-sided PICC line. Stable tracheostomy tube. Redemonstration of overlying mccallum al wires and mediastinal clips along with left atrial appendage clip. Background underlying emphysematous change greatest left upper lung with mild cardiomegaly and mild c entral vascular congestion along with bibasilar opacities are all redemonstrated. Osseous structures remain intact. IMPRESSION: Correlate for CHF exacerbation as there is mild cardiomegaly with small size bilateral pl eural effusions and mild central vascular congestion all redemonstrated. Persistent bibasilar acute i nfiltrate and/or atelectasis noted. Background chronic emphysematous change. No significant change fr om one day earlier.
[2020-08-23] MEDS: BUDESONIDE 1 MG/2 ML NEBU INHALATION SCH ×2 (07:38→20:25)
[2020-08-23] MEDS: METOPROLOL TARTRATE 25 MG TAB PO SCH ×3 (07:38→20:35)
[2020-08-23] MEDS: AMIODARONE 200 MG TAB PO SCH (07:38)
[2020-08-23] MEDS: FORMOTEROL FUMARATE 20 MCG/2 ML NEBU INHALATION SCH ×2 (07:38→20:25)
[2020-08-23] MEDS: LEVOTHYROXINE IVP 100 MCG/5 ML VIAL IV SCH (08:12)
[2020-08-23] MEDS: APIXABAN 5 MG TAB PO SCH ×2 (08:12→20:34)
[2020-08-23] MEDS: PANTOPRAZOLE 40 MG/10 ML VIAL IVP SCH ×2 (08:12→20:35)
[2020-08-23] MEDS: CHLORHEXIDINE GLUCONATE 15 ML CUP MUCOUS MEM SCH ×2 (08:12→20:34)
[2020-08-23] MEDS: ASPIRIN 81 MG PO SCH (08:12)
[2020-08-23] MEDS: ATORVASTATIN 40 MG TAB PO SCH (08:12)
[2020-08-23 08:19] LABS: Glucose,Whole Blood 158 mg/dL (75-99)
[2020-08-23] MEDS: ANIDULAFUNGIN 100 MG in SODIUM CHLORIDE 0.9% 100 ML IVPB SCH (08:21)
--- NOTE | 2020-08-23 08:29 | P.PN ---
Subjective Progress Note Date: 08/23/20 Principal diagnosis: Symptomatic triple-vessel coronary artery disease, mild left ventricular dysfunction. Previuos medical history of stenting to his right coronary artery in 2002, hypertension, hyperlipidemia, hypothyroid status post partial thyroidectomy, previous tobacco dependence quit smoking 20 years ago, moderate chronic obstructive pulmonary disease with preoperative FEV1 of 56% of predicted value, bullous emphysema, remote history of pneumonia, type 2 diabetes mellitus with a preoperative hemoglobin A1c of 5.2%, chronic kidney disease stage III with a baseline creatinine of 1.4-1.5, family history of premature coronary artery disease with brother having had CABG at less than 50 years old. POD #36 double coronary artery bypass grafting using the left internal mammary artery to left anterior descending coronary artery, reverse greater saphenous vein graft from the aorta to the posterior descending coronary artery. Exclusion of the left atrial appendage using a 35 mm Atriclip, endoscopic harvesting of the right greater saphenous vein from the groin to above the ankle level, graft flow measurement using the Meteor system, intraoperative transesophageal echocardiogram and epi-aortic scanning. Postoperative acute blood loss anemia, expected outcome from hemodilution and cardiopulmonary bypass. Postoperative paroxysmal atrial fibrillation, unexpected but common outcome after open heart surgery. Pneumoperitoneum, unexpected Acute on chronic kidney disease secondary to ATN Pneumatosis of the small bowel POD #30 ischemic bowel, small bowel resection Acute hypoxic respiratory failure with reintubation, prolonged mechanical ventilation, unexpected Acute abdomen, intraperitoneal hemorrhage POD #21 Exploratory laparotomy, washout of peritoneal cavity, ileostomy with small bowel resection POD #3 tracheostomy placement, EGD with PEG tube placement The patient is currently laying in bed in the intensive care unit in no acute distress. Currently in controlled afib with heart rate in the 80s, continues on amiodarone, lopressor, was started on Eliquis yesterday. Remains on IV Eraxis, Zosyn by Dr. Frederick. Remains afebrile, white blood cell count 8.3. Sputum culture sent 08/17/20 after intubation and 08/18/20, negative. Patient continues to have liquid light brown stool through ileostomy. Wound vac in place to mid abdominal incision. Remains on minimal Precedex, does open eyes, moves all extremities, follows commands, shakes head no when asked if in pain. TF continues at goal with minimal residual. Tolerated trach collar for 8 hours yesterday. Daughter Corinne updated with plan of care yesterday, all questions answered. Objective - Vital Signs Vital signs: Vital Signs Temp 97.6 F 08/23/20 04:00 Pulse 75 08/23/20 06:00 Resp 25 H 08/23/20 06:00 BP 90/57 08/22/20 20:00 Pulse Ox 100 08/23/20 06:00 Intake & Output 08/22/20 08/22/20 08/23/20 06:59 18:59 06:59 Intake Total 3481.825 2306 1644.695 Output Total 590 1915 1205 Balance 883.469 -219 439.695 Weight 88.4 kg 87.6 kg Intake: IV 136 236 136 Anidulafungin 100 mg In 100 Sodium Chloride 0.9% 100 ml @ 84 mls/hr IVPB DAILY [facility] Rx#:[id number] Piperacillin-Tazobactam 3 100 100 100 .375 gm In Sodium Chloride 0.9% 100 ml @ 25 mls/hr IVPB Q8HR [facility] Rx# :[id number] pressure bag 36 36 36 Intake, IV Titration 337.469 340 428.695 Amount Dexmedetomidine/0.9% NaCl 97.469 100 (Pmx) 400 mcg In Empty Bag 1 bag @ Titrate IV . Q0M [facility] Rx#:[id number] Dexmedetomidine/0.9% NaCl 188.695 (Pmx) 400 mcg In Empty Bag 1 bag @ Titrate IV . Q0M [facility] Rx#:[id number] Sodium Chloride 0.45% 1, 240 240 240 000 ml @ 20 mls/hr IV . Q24H [facility] Rx#:[id number] Tube Feeding 400 520 480 Other 600 600 600 Output: Urine 590 665 755 Stool 1250 450 Other: Voiding Method Indwelling Catheter Indwelling Catheter Indwelling Catheter ABP, PAP, CO, CI - Last Documented Arterial Blood Pressure 132/56 Pulmonary Artery Pressure 33/14 Cardiac Output 6.7 Cardiac Index 3.1 - Constitutional General appearance: Present: cooperative, no acute distress - Respiratory Details: Lungs sounds diminished bilaterally. Respirations even, non-labored on mechanical ventilation. Current settings assist control mode, FiO2 40%, tidal volume 450, respiratory rate 24, PEEP 5. #8 Shiley tracheostomy present - Cardiovascular Details: S1, S2 present. Irregular rate and rhythm, controlled afib on telemetry with rate in the 80s. Sternum stable. Palpable peripheral pulses bilaterally. No edema present. Heart hugger, antiembolism stockings, SCDs present. Right brachial PICC line present. Left radial arterial line present - Gastrointestinal Gastrointestinal Comment(s): Abdomen soft, nontender, nondistended. Active bowel sounds present. Ileostomy present to RLQ, stoma pink and moist, positive light brown liquid stool, 1700 mL in the last 24 hours. LUQ PEG present, tube feeding and free water flushes co ntinue with minimal residual - Genitourinary Genitourinary Comment(s): Villafana catheter present draining clear, yellow urine. Output 1420 mL in the last 24 hours - Integumentary Integumentary Comment(s): Skin is warm and dry. Anterior chest incision well approximated and covered with dry intact dressing. Right lower extremity EVH site well approximated. Mid abdominal incision open, wound vac in place. Shear injury to shoulder blade healing. Stage II present to coccyx fold - Neurologic Neurologic: Present: CNII-XII intact - Musculoskeletal Musculoskeletal: Present: generalized weakness, strength equal bilaterally - Psychiatric Psychiatric: Present: A&O x's 3, appropriate affect - Allied health notes Allied health notes reviewed: nursing - Labs CBC & Chem 7: 08/23/20 04:20 08/23/20 04:20 Labs: Abnormal Lab Results - Last 24 Hours (Table) 08/22/20 08/22/20 08/22/20 Range/Units 07:54 12:16 15:53 RBC (4.30-5.90) m/uL Hgb (13.0-17.5) gm/dL Hct (39.0-53.0) % RDW (11.5-15.5) % Chloride (98-107) mmol/L BUN (9-20) mg/dL Glucose (74-99) mg/dL POC Glucose (mg/dL) 172 H 146 H 120 H (75-99) mg/dL ALT (4-49) U/L Total Protein (6.3-8.2) g/dL Albumin (3.5-5.0) g/dL 08/22/20 08/22/20 08/23/20 Range/Units 19:46 23:21 03:57 RBC (4.30-5.90) m/uL Hgb (13.0-17.5) gm/dL Hct (39.0-53.0) % RDW (11.5-15.5) % Chloride (98-107) mmol/L BUN (9-20) mg/dL Glucose (74-99) mg/dL POC Glucose (mg/dL) 178 H 131 H 155 H (75-99) mg/dL ALT (4-49) U/L Total Protein (6.3-8.2) g/dL Albumin (3.5-5.0) g/dL 08/23/20 08/23/20 Range/Units 04:20 04:20 RBC 2.54 L (4.30-5.90) m/uL Hgb 7.6 L (13.0-17.5) gm/dL Hct 24.2 L (39.0-53.0) % RDW 16.2 H (11.5-15.5) % Chloride 111 H (98-107) mmol/L BUN 37 H (9-20) mg/dL Glucose 160 H (74-99) mg/dL POC Glucose (mg/dL) (75-99) mg/dL ALT 59 H (4-49) U/L Total Protein 5.3 L (6.3-8.2) g/dL Albumin 2.5 L (3.5-5.0) g/dL - Imaging and Cardiology Chest x-ray: report reviewed, image reviewed Assessment and Plan Assessment: 1. Symptomatic triple-vessel coronary artery disease, status post 2 vessel CABG 2. Mild left ventricular dysfunction 3. Previuos history of stenting to his right coronary artery in 2002 4. Hypertension 5. Hyperlipidemia 6. Hypothyroid status post partial thyroidectomy 7. Previous tobacco dependence with bullous emphysema 8. Moderate chronic obstructive pulmonary disease with preoperative FEV1 of 56% of predicted value 9. Remote history of pneumonia 10. Type 2 diabetes mellitus with a preoperative hemoglobin A1c of 5.2% 11. Chronic kidney disease stage III with a baseline creatinine of 1.4-1.5 12. Family history of premature coronary artery disease with brother having had CABG at less than 50 years old 13. Postoperative acute blood loss anemia, expected outcome 14. Postoperative paroxysmal atrial fibrillation, unexpected, status post exclusion of the left atrial appendage 15. Pneumoperitoneum, unexpected 16. Acute on chronic kidney disease with hyponatremia, hyperkalemia 17. Pneumatosis of the small bowel, status post small bowel resection 18. Sputum culture positive for pseudomonas fluorescens, second sputum positive for aurora 19. Acute hypoxic respiratory failure with reintubation, prolonged mechanical ventilation, S/P tracheostomy placement 20. Acute abdomen, intraperitoneal hemorrhage, S/P exploratory laparotomy, washout of peritoneal cavity, ileostomy with small bowel resection 21. Generalized debility secondary to above, S/P PEG placement for nutrition Plan: 1. Continue low dose aspirin, statin, beta apolinar. 2. Continue amiodarone for afib prophylaxis. Continue Eliquis for anticoagulation 3. Mechanical ventilation, bronchodilators, inhaled steroids per pulmonology management. Use as minimal sedation as possible, trach collar again today as tolerated 4. Will monitor daily labs and chest x-rays. 5. GI/DVT prophylaxis. 6. Pain control with current medication regimen. 7. Insulin management per primary care service 8. Continue TF, check for residual 9. Nephrology following. Avoid nephrotoxic agents. Lasix dosing/fluid management per nephrology recommendations 10. Strict accurate intake and output, daily weight 11. Continue IV Eraxis day #19, re-added Zosyn, day 7 (previously on from 07/24/20-08/05/20) per infectious disease. 12. Wound vac to be changed 13. DC planning continues, social work on board to assist. Anticipate DC to LTAC , likely or Friday 14. More recommendations to follow based on patient's clinical course. Time with Patient: Greater than 30
--- NOTE | 2020-08-23 08:40 | PN ---
PROGRESS NOTE Mr. Tinoco is a 80-year-old male who underwent coronary artery bypass grafting. His postoperative course was complicated by perforated viscus and abdominal bleeding that required repeat surgery. He is intubated with tracheostomy and PEG tube placement. He is awake, alert, following command, appears to be stronger. Hemodynamically, he is stable. He went back into atrial fibrillation earlier this morning. There is no evidence of hypotension. His urine output is good. He is tolerating tube feeding. He continues to be at this time on amiodarone 200 mg daily, Eliquis 5 mg twice a day, aspirin once a day, levothyroxine, metoprolol tartrate 25 mg 3 times a day. PHYSICAL EXAMINATION: Blood pressure running in the one teens to 120s with the heart rate in the 90s. LUNGS: Clear anteriorly. HEART: Irregular, irregular. S1, S2. No S3 with systolic murmur. No diastolic murmur. No rub. ABDOMEN: Soft. PEG tube in place and dressing is clean. EXTREMITIES: No significant edema. LAB DATA: Lab data revealed hemoglobin 7.6, which has been stable. BUN and creatinine 37 and 1.25. Chest x-ray reveals small bilateral pleural effusion with no significant changes. IMPRESSION: 1. Status post coronary artery bypass grafting. 2. Postoperative abdominal viscus perforation and bleeding requiring surgery. 3. Recurrent respiratory failure with tracheostomy. 4. PEG tube placement. 5. Atrial fibrillation, anticoagulated, rate controlled. 6. Chronic kidney disease, stable. 7. History of chronic obstructive lung disease. 8. Hyperlipidemia. RECOMMENDATION: From the cardiac standpoint, will continue present therapy. Continue physical therapy. The patient has been evaluated for possible transfer to a long-term facility for weaning and extubation. In the meantime will continue on the present regimen. MMODL / IJN: [id number] /
[2020-08-23] MEDS: FUROSEMIDE 10 MG/ML 4 ML VIAL IV SCH (09:28)
--- NOTE | 2020-08-23 10:29 | P.PN ---
Subjective Progress Note Date: 08/23/20 Principal diagnosis: CABG Remains on minimal Precedex, does open eyes, moves all extremities, follows commands, shakes head no when asked if in pain. TF continues at goal with mi nimal residual. Tolerated trach collar for 8 hours yesterday. Objective - Vital Signs Vital signs: Vital Signs Temp 98 F 08/23/20 08:00 Pulse 105 H 08/23/20 10:00 Resp 38 H 08/23/20 10:00 BP 90/57 08/22/20 20:00 Pulse Ox 98 08/23/20 10:00 Intake & Output 08/22/20 08/23/20 08/23/20 18:59 06:59 18:59 Intake Total 1696 1644.695 750.75 Output Total 1915 1205 840 Balance -219 439.695 -89.25 Weight 87.6 kg Intake: IV 236 136 212 Anidulafungin 100 mg In 100 100 Sodium Chloride 0.9% 100 ml @ 84 mls/hr IVPB DAILY [facility] Rx#:[id number] Piperacillin-Tazobactam 3 100 100 100 .375 gm In Sodium Chloride 0.9% 100 ml @ 25 mls/hr IVPB Q8HR [facility] Rx# :[id number] pressure bag 36 36 12 Intake, IV Titration 340 428.695 178.75 Amount Dexmedetomidine/0.9% NaCl 100 (Pmx) 400 mcg In Empty Bag 1 bag @ Titrate IV . Q0M [facility] Rx#:[id number] Dexmedetomidine/0.9% NaCl 188.695 98.75 (Pmx) 400 mcg In Empty Bag 1 bag @ Titrate IV . Q0M [facility] Rx#:[id number] Sodium Chloride 0.45% 1, 240 240 80 000 ml @ 20 mls/hr IV . Q24H [facility] Rx#:[id number] Tube Feeding 520 480 160 Other 600 600 200 Output: Urine 665 755 540 Stool 1250 450 300 Other: Voiding Method Indwelling Catheter Indwelling Catheter Indwelling Catheter ABP, PAP, CO, CI - Last Documented Arterial Blood Pressure 142/67 Pulmonary Artery Pressure 33/14 Cardiac Output 6.7 Cardiac Index 3.1 - Exam Gen: awake, alert. HEENT: Trach collar in place. normocephalic, atraumatic, dry mucous membranes, + central line. Resp: adequate lung expansion, symmetric breathing, no accessory muscle use CVS: good distal perfusion x 4, RRR, no murmurs, clicks, gallops GI: Feeding tube in place, soft, NTTP, ND. Ileostomy bag and wound VAC present. : no SPT, no CVAT, malagon catheter is present MSK: No edema, no clubbing Neuro: Generally weak, non-focal, no sensory deficits, appropriate tone - Labs CBC & Chem 7: 08/23/20 04:20 08/23/20 04:20 Labs: Abnormal Lab Results - Last 24 Hours (Table) 08/22/20 08/22/20 08/22/20 Range/Units 12:16 15:53 19:46 RBC (4.30-5.90) m/uL Hgb (13.0-17.5) gm/dL Hct (39.0-53.0) % RDW (11.5-15.5) % Chloride (98-107) mmol/L BUN (9-20) mg/dL Glucose (74-99) mg/dL POC Glucose (mg/dL) 146 H 120 H 178 H (75-99) mg/dL ALT (4-49) U/L Total Protein (6.3-8.2) g/dL Albumin (3.5-5.0) g/dL 08/22/20 08/23/20 08/23/20 Range/Units 23:21 03:57 04:20 RBC 2.54 L (4.30-5.90) m/uL Hgb 7.6 L (13.0-17.5) gm/dL Hct 24.2 L (39.0-53.0) % RDW 16.2 H (11.5-15.5) % Chloride (98-107) mmol/L BUN (9-20) mg/dL Glucose (74-99) mg/dL POC Glucose (mg/dL) 131 H 155 H (75-99) mg/dL ALT (4-49) U/L Total Protein (6.3-8.2) g/dL Albumin (3.5-5.0) g/dL 08/23/20 08/23/20 Range/Units 04:20 08:17 RBC (4.30-5.90) m/uL Hgb (13.0-17.5) gm/dL Hct (39.0-53.0) % RDW (11.5-15.5) % Chloride 111 H (98-107) mmol/L BUN 37 H (9-20) mg/dL Glucose 160 H (74-99) mg/dL POC Glucose (mg/dL) 158 H (75-99) mg/dL ALT 59 H (4-49) U/L Total Protein 5.3 L (6.3-8.2) g/dL Albumin 2.5 L (3.5-5.0) g/dL Assessment and Plan Plan: Acute hypoxic respiratory failure, b/l pleural effusion s/p L sided thoracentesis 08/15 - reintubated on 08/17 - management per pulmonary - S/P trach 08/20. Intraperitoneal hemorrhage, s/p ex lap, washout of peritoneal cavity and il eostomy on 08/02 Ischemic small bowel with pneumonperitoneum on 07/24 - surgery recs, continue to feeding - Discussed with ID, will discontinue eraxis, dapto d/melody on 08/20. Continue Zosyn for now. - S/P PEG placement 08/20 DM 2 - hold metformin - Inulin sliding scale - Follow blood sugars closely - A1C from 06/21/2020 5.2 P. A fib -eliquis. - Amio - metoprolol Hypotension -Off levo now Acute blood loss anemia and thrombocytopenia, anticipated outcome of surgery - follow CBC - transfuse as indicated COPD - on duonebs, pulmicort and formeterol. Coronary artery disease -Status post coronary artery bypass grafting -Cardiothoracic and cardiology following HTN - meds per CT surgery - follow BP CONNOR on CKD stage III - Resolved. - suspect due to fluid shifts - follow Cr - Avoid additional nephrotoxic agents - follow renal function closely after surgery Hypothyroidism status post partial thyroidectomy - synthroid Morbid obesity with BMI 30.5 -Outpatient structured weight loss Chronic: ADDY Jacobs's Disposition: Likely LTAC Anticipated discharge: 2 days.
--- NOTE | 2020-08-23 11:08 | P.PN ---
Subjective Patient is seen in follow-up for acute kidney injury. Renal function improving. Off vasopressors. Status post trach and PEG. Receiving tube feeding at goal. Hemodynamically stable. No changes overnight. IV Lasix resumed today. Vital signs are stable. HEENT: Head exam is unremarkable. Tracheostomy noted. LUNGS: Breath sounds decreased. HEART: Rate and Rhythm are regular. ABDOMEN: Soft, nondistended. Ileostomy and PEG tube noted. EXTREMITITES: No edema. Objective - Vital Signs Vital signs: Vital Signs Temp 98 F 08/23/20 08:00 Pulse 105 H 08/23/20 10:00 Resp 38 H 08/23/20 10:00 BP 90/57 08/22/20 20:00 Pulse Ox 98 08/23/20 10:00 Intake & Output 08/22/20 08/23/20 08/23/20 18:59 06:59 18:59 Intake Total 1696 1644.695 750.75 Output Total 1915 1205 840 Balance -219 439.695 -89.25 Weight 87.6 kg Intake: IV 236 136 212 Anidulafungin 100 mg In 100 100 Sodium Chloride 0.9% 100 ml @ 84 mls/hr IVPB DAILY [facility] Rx#:[id number] Piperacillin-Tazobactam 3 100 100 100 .375 gm In Sodium Chloride 0.9% 100 ml @ 25 mls/hr IVPB Q8HR [facility] Rx# :[id number] pressure bag 36 36 12 Intake, IV Titration 340 428.695 178.75 Amount Dexmedetomidine/0.9% NaCl 100 (Pmx) 400 mcg In Empty Bag 1 bag @ Titrate IV . Q0M [facility] Rx#:[id number] Dexmedetomidine/0.9% NaCl 188.695 98.75 (Pmx) 400 mcg In Empty Bag 1 bag @ Titrate IV . Q0M [facility] Rx#:[id number] Sodium Chloride 0.45% 1, 240 240 80 000 ml @ 20 mls/hr IV . Q24H [facility] Rx#:[id number] Tube Feeding 520 480 160 Other 600 600 200 Output: Urine 665 755 540 Stool 1250 450 300 Other: Voiding Method Indwelling Catheter Indwelling Catheter Indwelling Catheter ABP, PAP, CO, CI - Last Documented Arterial Blood Pressure 142/67 Pulmonary Artery Pressure 33/14 Cardiac Output 6.7 Cardiac Index 3.1 - Labs CBC & Chem 7: 08/23/20 04:20 08/23/20 04:20 Labs: Abnormal Lab Results - Last 24 Hours (Table) 08/22/20 08/22/20 08/22/20 Range/Units 12:16 15:53 19:46 RBC (4.30-5.90) m/uL Hgb (13.0-17.5) gm/dL Hct (39.0-53.0) % RDW (11.5-15.5) % Chloride (98-107) mmol/L BUN (9-20) mg/dL Glucose (74-99) mg/dL POC Glucose (mg/dL) 146 H 120 H 178 H (75-99) mg/dL ALT (4-49) U/L Total Protein (6.3-8.2) g/dL Albumin (3.5-5.0) g/dL 08/22/20 08/23/20 08/23/20 Range/Units 23:21 03:57 04:20 RBC 2.54 L (4.30-5.90) m/uL Hgb 7.6 L (13.0-17.5) gm/dL Hct 24.2 L (39.0-53.0) % RDW 16.2 H (11.5-15.5) % Chloride (98-107) mmol/L BUN (9-20) mg/dL Glucose (74-99) mg/dL POC Glucose (mg/dL) 131 H 155 H (75-99) mg/dL ALT (4-49) U/L Total Protein (6.3-8.2) g/dL Albumin (3.5-5.0) g/dL 08/23/20 08/23/20 Range/Units 04:20 08:17 RBC (4.30-5.90) m/uL Hgb (13.0-17.5) gm/dL Hct (39.0-53.0) % RDW (11.5-15.5) % Chloride 111 H (98-107) mmol/L BUN 37 H (9-20) mg/dL Glucose 160 H (74-99) mg/dL POC Glucose (mg/dL) 158 H (75-99) mg/dL ALT 59 H (4-49) U/L Total Protein 5.3 L (6.3-8.2) g/dL Albumin 2.5 L (3.5-5.0) g/dL Assessment and Plan Plan: Assessment: 1. Acute kidney injury secondary to hemodynamic ATN. No hydronephrosis noted on computed tomography scan. No proteinuria on UA. Nonoliguric. Renal function improved. Creatinine 1.25 today. 2. Chronic kidney disease stage III with baseline creatinine in the range of 1.2-1.5 secondary to nephrosclerosis. UA from June 2020 was benign. 3. Coronary artery disease status post 2 vessel CABG on July 18. 4. Hypervolemic hyponatremia. Resolved. s/p diuresis. Became slightly hyp ernatremic and is now maintained on free water flushes with his tube feeding. 5. Bowel ischemia status post exploratory laparotomy and resection. Underwent another exploratory laparotomy on August 02 with ileostomy. 6. Diabetes mellitus. 7. Volume overload. Improved with diuresis. 8. A. fib maintained on Lopressor. 9. Anemia of chronic kidney disease and post-cabg. Status post blood trans fusion this admission. Maintained on Aranesp. Plan: Maintain tube feeding. Also receiving free water flushes 200 mL every 4 hours. Avoid nephrotoxins. Continue to monitor renal function and urine output. Lasix resumed today. [facility]
--- NOTE | 2020-08-23 11:55 | P.PN ---
Subjective Progress Note Date: 08/23/20 CHIEF COMPLAINT: Status post CABG 2 vessels HISTORY OF PRESENT ILLNESS: Patient remains in the ICU. Lying in bed. He is status post peg tube and tracheostomy placement. Patient is tolerating his tube feedings. Patient is currently on trach collar. Patient is having stool through his ileostomy. Continues to have wound VAC in place for his abdominal incision. He is off of pressors. He is on Precedex. Afebrile WBC 8.3 Hgb 7.6 pulmonary has started patient on IV Lasix daily for fluid overload Chest x-ray correlate for CHF exacerbation there is mild cardiomegaly with small sized bilateral pleural effusions and mild central vascular congestion all be demonstrated. Persistent bibasilar acute infiltrate and/or atelectasis noted. PHYSICAL EXAM: VITAL SIGNS: Reviewed. GENERAL: Well-developed in no acute distress. HEENT: No sclera icterus. Extraocular movements grossly intact. Moist buccal mucosa. Head is atraumatic, normocephalic. ABDOMEN: Soft. Abdominal incision with wound VAC in place. Ileostomy right side of abdomen with dark brown liquidy stool. PEG tube site clean dry and intact NEUROLOGIC: Is awake and able to follow simple commands ASSESSMENT: 1. Intraperitoneal hemorrhage status post exploratory laparotomy, washout of peritoneal cavity and ileostomy on 08/02/2020 2. Ischemic small bowel with evidence of pneumatosis status post small bowel resection on 07/24/2020 3. Acute hypoxic respiratory failure requiring mechanical ventilation 4. symptomatic triple-vessel coronary artery disease status post 2 vessel coronary bypass grafting surgery 5. Diabetes mellitus type 2 PLAN: -Continued tube feedings -Continue wound VAC -Continue antibiotics per ID -Continue supportive care -DVT prophylaxis subcu Heparin and GI prophylaxis Protonix [employer] Libr[employer] note has been reviewed by physician. Signing provider agrees with the documented findings, assessment, and plan of care. Objective - Vital Signs Vital signs: Vital Signs Temp 98 F 08/23/20 08:00 Pulse 112 H 08/23/20 11:18 Resp 73 H 08/23/20 11:00 BP 90/57 08/22/20 20:00 Pulse Ox 99 08/23/20 11:00 Intake & Output 08/22/20 08/23/20 08/23/20 18:59 06:59 18:59 Intake Total 1696 1644.695 813.75 Output Total 1915 1205 1265 Balance -219 439.695 -451.25 Weight 87.6 kg Intake: IV 236 136 215 Anidulafungin 100 mg In 100 100 Sodium Chloride 0.9% 100 ml @ 84 mls/hr IVPB DAILY [facility] Rx#:[id number] Piperacillin-Tazobactam 3 100 100 100 .375 gm In Sodium Chloride 0.9% 100 ml @ 25 mls/hr IVPB Q8HR [facility] Rx# :[id number] pressure bag 36 36 15 Intake, IV Titration 340 428.695 198.75 Amount Dexmedetomidine/0.9% NaCl 100 (Pmx) 400 mcg In Empty Bag 1 bag @ Titrate IV . Q0M [facility] Rx#:[id number] Dexmedetomidine/0.9% NaCl 188.695 98.75 (Pmx) 400 mcg In Empty Bag 1 bag @ Titrate IV . Q0M [facility] Rx#:[id number] Sodium Chloride 0.45% 1, 240 240 100 000 ml @ 20 mls/hr IV . Q24H [facility] Rx#:[id number] Tube Feeding 520 480 200 Other 600 600 200 Output: Urine 665 755 965 Stool 1250 450 300 Other: Voiding Method Indwelling Catheter Indwelling Catheter Indwelling Catheter ABP, PAP, CO, CI - Last Documented Arterial Blood Pressure 147/74 Pulmonary Artery Pressure 33/14 Cardiac Output 6.7 Cardiac Index 3.1 - Labs CBC & Chem 7: 08/23/20 04:20 08/23/20 04:20 Labs: Abnormal Lab Results - Last 24 Hours (Table) 08/22/20 08/22/20 08/22/20 Range/Units 12:16 15:53 19:46 RBC (4.30-5.90) m/uL Hgb (13.0-17.5) gm/dL Hct (39.0-53.0) % RDW (11.5-15.5) % Chloride (98-107) mmol/L BUN (9-20) mg/dL Glucose (74-99) mg/dL POC Glucose (mg/dL) 146 H 120 H 178 H (75-99) mg/dL ALT (4-49) U/L Total Protein (6.3-8.2) g/dL Albumin (3.5-5.0) g/dL 08/22/20 08/23/20 08/23/20 Range/Units 23:21 03:57 04:20 RBC 2.54 L (4.30-5.90) m/uL Hgb 7.6 L (13.0-17.5) gm/dL Hct 24.2 L (39.0-53.0) % RDW 16.2 H (11.5-15.5) % Chloride (98-107) mmol/L BUN (9-20) mg/dL Glucose (74-99) mg/dL POC Glucose (mg/dL) 131 H 155 H (75-99) mg/dL ALT (4-49) U/L Total Protein (6.3-8.2) g/dL Albumin (3.5-5.0) g/dL 08/23/20 08/23/20 Range/Units 04:20 08:17 RBC (4.30-5.90) m/uL Hgb (13.0-17.5) gm/dL Hct (39.0-53.0) % RDW (11.5-15.5) % Chloride 111 H (98-107) mmol/L BUN 37 H (9-20) mg/dL Glucose 160 H (74-99) mg/dL POC Glucose (mg/dL) 158 H (75-99) mg/dL ALT 59 H (4-49) U/L Total Protein 5.3 L (6.3-8.2) g/dL Albumin 2.5 L (3.5-5.0) g/dL
[2020-08-23 12:19] LABS: Glucose,Whole Blood 150 mg/dL (75-99)
[2020-08-23] MEDS: SODIUM CHLORIDE 0.45% 1,000 ML IV SCH (12:21)
[2020-08-23] MEDS ORDERED: METOPROLOL TARTRATE 25 MG TAB PO STA (12:22)
--- NOTE | 2020-08-23 13:49 | P.PN ---
Subjective Progress Note Date: 08/23/20 Principal diagnosis: Coronary artery disease, status post 2 vessel CABG. 79-year-old white male patient with past medical history of hypertension, hyperlipidemia, moderate to severe COPD with the baseline FEV1 of 56% of predicted who came in on 07/18/2020 for elective two-vessel bypass grafting with PABLO to LAD, and SVG to the PDA. He was seen in the intensive care unit [facility], an acute care hospital surgery, patient was successfully weaned and extubated from mechanical ventilator and under 6 hours following his OR exit, is currently awake and alert, sitting in the chair, he is currently on 2 L of oxygen, his pulse ox is 98%, hemodynamically he stable, blood pressure is 106/51, PA pressures 35/11, CVP is 8, no fever or chills, IV fluids including the 0.9 normal saline at a rate of 30 ML per hour, insulin is 4.5 units per hour, no vasoactive drips. Today's chest x-ray shows a pneumoperitoneum with lucency present underneath the right hemidiaphragm. He has left pleural and mediastinal chest tube, and there has been 500 mL of serosanguineous output from the left pleural and 350 mL from the mediastinal chest tube in the last 24 hours. Is having some mild discomfort under the right rib cage, but no acute distress, abdomen is distended but soft, he is hemodynamically stable, he is in sinus mechanism, no nausea vomiting or diarrhea. CT of the abdomen and pelvis is pending today's labs have been reviewed, showing white blood cell count of 11.9, hemoglobin of 9, sodium is 133, the rest of the electrolytes were within normal limits, B1 is 25 creatinine is 1.18 The patient is seen today 07/20/2020 in follow-up in the intensive care unit. He is currently sitting up in a chair at the bedside. Awake and alert in no acute distress. This is postoperative day #2, two-vessel coronary artery bypass surgery. He is currently on 2 L/m per nasal cannula maintaining good O2 saturat ion in the 90s. He did have issues with atrial fibrillation and is currently on Cardizem drip at 10 mg per hour. He did receive IV amiodarone, initiated on by mouth today. 0.9 normal saline at KVO. Chest x-ray reveals removal of mediastinal drains. Right-sided pneumoperitoneum is no longer appreciated. Left-sided chest tube remains in place. Bibasilar patchy atelectasis remains. White count 18.2. Hemoglobin 8.9. Platelet count 99,000. Sodium 127. Potassium 5.0. Creatinine 1.37. He is pulling approximately 3936-2137 ML's on the incentive spirometer. Continued on bronchodilators. Heparin for DVT prophylaxis. Patient is seen today 07/22/2020 in follow-up on the intensive care unit. He is currently sitting up in a chair at the bedside. He is having complaints of increasing shortness of breath. He is doing less on his incentive spirometer. Chest x-ray reveals small right pleural effusion with adjacent atelectasis and/or consolidation. He is currently maintaining O2 saturations in the low 90s on 3 L/m per nasal cannula. Respiratory rate 32. He is afebrile. Blood pre ssure stable. He did have issues with atrial fibrillation with rapid ventricular response last evening. He is on a Cardizem drip at 10 mg per hour. He will be transitioned to Eliquis. On oral amiodarone. 0.9 normal saline at 20 ML's per hour. Currently in sinus rhythm. White count 16.8. Hemoglobin 8.8. Sodium 124. Potassium 5.3. Bicarb 20. Creatinine 1.62. AST 147. ALT 130. He is still having issues with hypoactive bowel and not passing flatus or bowel movement since surgery. He remains on bronchodilators and IV Solu-Medrol. The patient is seen today 07/23/2020 in follow-up in the intensive care unit. Postoperative day #5. He is awake and alert in no acute distress. Currently sitting up in a chair at the bedside. He is feeling stronger today. Less short of breath. Maintaining O2 saturations in the 90s on 3 L/m per nasal cannula. Chest x-ray continues to show a small right pleural effusion with prominent right greater than left basilar atelectasis. He is doing better with his incentive spirometer. White count 15.2. Hemoglobin 81.1. Sodium 124. Potassium 5.3. Creatinine 1.84. AST 136. ALT 193. Albumin 3.4. No IV fluids currently. Is continued on bronchodilators, IV Solu-Medrol, anticoagulated with Eliquis. Still has not had a bowel movement. The patient is seen today 08/09/2020 in follow-up in the intensive care unit. He was extubated again yesterday 08/08/2020. He is currently on 2 L/m per nasal cannula. TPN at 75 ML's per hour. 0.9#10 ML's per hour. Amiodarone at 0.25 mg/m. Insulin drip at 7 units per hour. His x-ray reveals some evidence of fluid volume overload. He is also quite edematous. He'll receive Lasix 40 mg IVP 1 today. He'll also be placed on BiPAP 07/22 on 40% FiO2 as he remains slightly tachypneic and shallow breathing. He is quite weak and debilitated today. He remains on bronchodilators. Eraxis. Daptomycin. Being nourished with lipid and TPN. The patient is seen today 08/11/2020 in follow-up in the intensive care unit. He is currently resting fairly comfortably in bed. Maintaining O2 saturation in the 90s on 2 L/m per nasal cannula. He did wear BiPAP last night at 12/5 and 28% FiO2. He is being nourished with TPN at 75 ML's per hour. He is on insulin at 5.5 units per hour. He remains on amiodarone at 0.25 mg/m. White count 10.0. Hemoglobin 9.2. Sodium 145. Potassium 4.0. Creatinine 1.50. Glucose 120. Chest xray reveals persistent bilateral lung opacities and pleural effusions. No significant change. Remains on DuoNeb inhalations, daptomycin, meropenem. Remains slightly tachycardic. Temperature 99.2 axillary. Needs increased encouragement regarding the use of the incentive spirometer. The patient is seen today 08/12/2020 in follow-up in the intensive care unit. He is awake and alert in no acute distress. He is maintaining O2 saturation in the 90s on 2 L/m per nasal cannula. He has TPN at 75 ML's per hour. 0.9 normal sitting at 10 MLS per hour. Insulin drip at 4 units per hour. Chest x-ray showed a questionable left apical pneumothorax. Computed tomography scan of the chest revealed advanced upper lung emphysema but no convincing pneumothorax. There is moderate bilateral pleural effusions with atelectatic collapse of the entire bilateral lower lobes. Small pericardial effusion. He continues to breathe quite shallow with tachypnea. He remains quite weak and debilitated. Currently afebrile. Hemodynamically stable. White count 10.8. Hemoglobin 9.8. Sodium 143. Potassium 4.1. Creatinine 1.44. Glucose 152. AST 49. ALT 62. Albumin 2.5. He remains on daptomycin, Eraxis, bronchodilators. The patient is seen today 08/13/2020 in follow-up in the intensive care unit. He is currently resting fairly comfortably in bed. He remains awake. He is still very weak and debilitated. Physical therapy is working with the patient. He continues with rapid shallow breathing despite encouraging him to take slower deeper breaths. He is maintaining good O2 saturation in the 90s on 2 L/m per nasal cannula. He has TPN for nourishment at 75 ML's per hour. 0.9#10 mL per hour. Insulin drip at 7 units per hour. Chest x-ray continued showing evidence of COPD and continue small to moderate effusions with adjacent atelectasis/consolidations. He continues to need increased encouragement to utilize the incentive spirometer and cough and deep breathing exercises. White count 11.7. Hemoglobin 10.0. Sodium 144. Potassium 4.2. Creatinine 1.47. Glucose 151. He remains on DuoNeb inhalations, Pulmicort inhalations. Antibiotics in the form of daptomycin. Eraxis. Heparin for DVT prophylaxis. The patient is seen today 08/16/2020 in follow-up in the intensive care unit. Postoperative day #29 of his coronary artery bypass grafting. He is awake and alert in no acute distress. He is currently sitting up in a chair at the bedside. Maintaining O2 saturations up to 99% on 5 L/m per nasal cannula. He remains tachypneic. He has a respiratory pattern of rapid shallow breathing. Chest x-ray reveals COPD with continued small pleural effusions and patchy atelectasis in the bases. He is status post left-sided thoracentesis with 1.4 L of turbid blood tinged fluid removed yesterday. He is status post 5 units of packed red blood cells this admission. Current hemoglobin 10.3. Platelet count 370. White count 13.5. Sodium 142. Potassium 4.7. Creatinine 1.55. He remains on bronchodilators, Mucomyst, Pulmicort. Insulin drip at 3.5 units per hour. Being nourished with Glucerna. TPN's at 35 mL per hour. 0.9 normal sis ine at 10 MLS per hour. The patient is seen today 08/17/2020 in follow-up in the intensive care unit. This is postoperative day #30 of his coronary artery bypass grafting. He is currently resting fairly comfortably in bed. He is on BiPAP 15/5 and 35% FiO2. He is 0.9 normal saline at 50 MLS per hour. He is awake. Chest x-ray continues to show stable bibasilar infiltrates. There is some improvement in the right- sided pleural effusion. White count 11.9. Hemoglobin 10.3. Platelets 285. S odium 136. Potassium 5.4. Creatinine 1.99. Glucose 147. He remains on DuoNeb inhalations, Pulmicort and Perforomist inhalations, Eraxis, Zosyn, daptomycin. Follow-up blood cultures reveal no growth to date. The patient is seen today 08/18/2020 in follow-up in the intensive care unit. Yesterday he developed worsening shortness of breath despite being on BiPAP. He was quite tachypneic and had desaturations. He was subsequently reintubated and placed back on the mechanical ventilator. Assist-control rate of 24, tidal volume 450, FiO2 of 40% and a PEEP of 5. Morning blood gases reveal a P O2 of 168, pCO2 52, pH 7.38. This breath and FiO2 of 60%. Left radial arterial line placed yesterday. He remains on propofol at 40 mcg/kg/m. Heparin drip per weight-based protocol. 0.9 normal sitting at 25 ML's per hour. Norepinephrine at 4 mcg/m. He is being nourished with Nepro 180 MLS every 4 hours with free water flushes. Chest x-ray reveals evidence of congestive heart failure with mild cardiomegaly and small bilateral pleural effusions with mild central vascular congestion and associated basilar atelectasis. He is status post 5 units of packed red blood cells this admission. Current hemoglobin 8.3. White count 9.2. Sodium 145. Potassium 4.3. Creatinine 2.30. Glucose 136. Magnesium 2.6. He remains on bronchodilators, antibiotics in the form of Zosyn and daptomycin. Remains on Eraxis. Ostomy functioning. The patient is seen today 08/19/2020 in follow-up in the intensive care unit. He remains intubated on the mechanical ventilator. Assist-control mode. Rate of 24. Ativan for 50. FiO2 40% and a PEEP of 5. Morning blood gases revealed a pO2 of 87, pCO2 46, pH 7.39. He remains sedated on propofol at 35 mcg/kg/m. Requiring norepinephrine at 1.7 mcg/m. D5W at 20 mL per hour. Heparin drip weight-based protocol. Today's chest x-ray reveals no evidence of pneumothorax. There is a stable right pleural effusion. Endotracheal NG tube locations are good. There is a new patchy airspace disease in the right upper lobe. Some worsening pulmonary edema in the right lower lobe. He remains on DuoNeb inhalations, Pulmicort and Perforomist inhalations. He remains on antibiotics in the form of daptomycin, Eraxis, Zosyn. White count 8.6. Hemoglobin 8.4. D- dimer 1.79. Sodium 142. Potassium 3.8. Creatinine 1.78. Dopplers of the bilateral lower extremities negative for DVT. Plan is for possible tracheostomy tube placement tomorrow with Dr. Cantor. The patient is seen today 08/20/2020 in follow-up in the intensive care unit. He remains intubated on mechanical ventilator. Currently an assist-control mode with a rate of 24, tidal volume 450, FiO2 40% and a PEEP of 5. Morning blood gases reveal a pO2 of 96, pCO2 45, pH 7.40. He remains on norepinephrine at 0.03 mcg/kg/m. Propofol at 35 mcg/kg/m. D5 and half-normal saline at 40 ML's per hour. Tube feeding's are currently on hold. The plan is for tracheostomy tube insertion and possible PEG tube placement today. Chest x-ray shows evidence of mild fluid volume overload and mild cardiomegaly with small bilateral pleural effusions and mild central vascular congestion. Persistent basilar acute infiltrate/atelectasis noted. Back on chronic emphysematous changes. No significant change compared to yesterday. White count 6.7. Hemoglobin 8.4. Sodium 137. Potassium 4.6. Creatinine 1.59. Remains on Zosyn, daptomycin, and Eraxis. Reevaluated today on 08/21/2020, patient remains in the intensive care unit, remains intubated and mechanically ventilated. He is now on assist control rate of 24 tidal volume is 450 FiO2 is 40% and PEEP of 5. ABG showed a pO2 of 103 EC O2 of 50 pH of 7.35. Patient is on multiple drips including D5 4 5 at 50 mL per hour. Propofol at 25 mcg/kg/m, he is off norepinephrine. Patient underwent tracheostomy and PEG tube placement yesterday, and the plan is to start using the PEG tube today for enteral support. I also plan to give the patient trials of weaning with pressure support of 12 and CPAP. Ileostomy seems to be functioning well. Wound VAC seems to be intact in the mid abdomen. PEG tube seems to be intact. Tracheostomy seems to be functional well. Patient had 2 vessel bypass surgery on 07/18/20, he had intraperitoneal hemorrhage requiring exploratory laparotomy and ileostomy on 08/02. Extubated and reintubated 3 times. Presently intubated and on mechanical ventilation via tracheostomy. Again I plan to give the patient weaning trial with pressure support and CPAP today. Chest x-ray showed minimal bibasilar atelectasis, no significant pleural effusion. CBC today is relatively normal. Basic metabolic profile is normal. BUN is 37 creatinine is 1.49. Reevaluated today on 08/22/2020, patient remains in the ICU, intubated and mechanically ventilated. He is presently on assist control rate of 24 tidal volume is 450 FiO2 40% PEEP of 5. ABG showed a pO2 of 109, pCO2 of 44 pH of 7.40. Patient tolerated over 6 hours of pressure support and CPAP mode of mechanical ventilation yesterday. Had to be placed back on assist control mode at night. Patient remains on Precedex at 0.7 mcg/kg per hour. He is on bolus tube feedings receiving Nepro. He is switched now against a pressure support of 12 and CPAP of 5, FiO2 at 40%, and I plan to switch him to trach collar today. This will be done and the patient will be kept on trach collar as long as tolerated. Chest x-ray today is basically about the same. Labs were all reviewed, WBC count is 7.8 hemoglobin is 7.7 and electrolytes are normal BUN is 38 creatinine is 1.36 Patient was reevaluated today on 08/23/2020, remains in the ICU intubated and mechanically ventilated. Patient tolerated almost 10 hours of trach collar yesterday. And he was placed back on assist control mode of mechanical ventilation at night. I plan to place him back on trach collar today. He is presently on assist control rate of 24 tidal volume is 450 FiO2 40% and PEEP of 5 patient is on Precedex at 0.7 mcg/kg/h, he is also on antibiotics in the form of a Eraxis and Zosyn. He has trach collar in place this morning, he did receive 1 dose of Lasix 40 mg IV push. Remains on enteral tube feeding using Nepro 40/40. Chest x-ray showed slight interstitial edema, hence one dose of Lasix was given today. My understanding is the patient may be considered for transfer to shelter acute care possibly in the next 24 hours. Objective - Vital Signs Vital signs: Vital Signs Temp 97.8 F 08/23/20 12:00 Pulse 112 H 08/23/20 13:00 Resp 42 H 08/23/20 13:00 BP 90/57 08/22/20 20:00 Pulse Ox 98 08/23/20 13:00 Intake & Output 08/22/20 08/23/20 08/23/20 18:59 06:59 18:59 Intake Total 1696 1644.695 836.75 Output Total 1915 1205 1515 Balance -219 439.695 -678.25 Weight 87.6 kg Intake: IV 236 136 218 Anidulafungin 100 mg In 100 100 Sodium Chloride 0.9% 100 ml @ 84 mls/hr IVPB DAILY [facility] Rx#:[id number] Piperacillin-Tazobactam 3 100 100 100 .375 gm In Sodium Chloride 0.9% 100 ml @ 25 mls/hr IVPB Q8HR [facility] Rx# :[id number] pressure bag 36 36 18 Intake, IV Titration 340 428.695 218.75 Amount Dexmedetomidine/0.9% NaCl 100 (Pmx) 400 mcg In Empty Bag 1 bag @ Titrate IV . Q0M [facility] Rx#:[id number] Dexmedetomidine/0.9% NaCl 188.695 98.75 (Pmx) 400 mcg In Empty Bag 1 bag @ Titrate IV . Q0M [facility] Rx#:[id number] Sodium Chloride 0.45% 1, 240 240 120 000 ml @ 20 mls/hr IV . Q24H [facility] Rx#:[id number] Tube Feeding 520 480 200 Other 600 600 200 Output: Urine 152 775 6621 Stool 1250 450 300 Other: Voiding Method Indwelling Catheter Indwelling Catheter Indwelling Catheter ABP, PAP, CO, CI - Last Documented Arterial Blood Pressure 151/76 Pulmonary Artery Pressure 33/14 Cardiac Output 6.7 Cardiac Index 3.1 - Exam GENERAL EXAM: Revealed 79-year-old white male on mechanical ventilation, arousable, follows simple instructions. HEAD: Normocephalic/atraumatic. HEENT: PERRLA, EOMI, nonicteric, no neck masses, no JVD, tracheostomy seems to be intact. CHEST: No chest wall deformity. Symmetrical expansion. Midsternal incision is clean dry and intact LUNGS: Equal air entry with scattered crackles in the bases. CVS: Regular rate and rhythm, normal S1 and S2, no gallops, no murmurs, no rubs ABDOMEN: Abdominal incision with wound VAC in place. Ileostomy the right side of the abdomen, seems to be functional, PEG tube is intact. EXTREMITIES: No clubbing, no edema, no cyanosis, 2+ pulses and upper and lower extremities. MUSCULOSKELETAL: Muscle strength and tone normal. SPINE: No scoliosis or deformity SKIN: No rashes CENTRAL NERVOUS SYSTEM: Arousable, follows instructions, no gross deficits generally weak PSYCHIATRIC: Normal mood, blunt affect, normal mental status examination, comprehends what he is being told. - Labs CBC & Chem 7: 08/23/20 04:20 08/23/20 04:20 Labs: Abnormal Lab Results - Last 24 Hours (Table) 08/22/20 08/22/20 08/22/20 Range/Units 15:53 19:46 23:21 RBC (4.30-5.90) m/uL Hgb (13.0-17.5) gm/dL Hct (39.0-53.0) % RDW (11.5-15.5) % Chloride (98-107) mmol/L BUN (9-20) mg/dL Glucose (74-99) mg/dL POC Glucose (mg/dL) 120 H 178 H 131 H (75-99) mg/dL ALT (4-49) U/L Total Protein (6.3-8.2) g/dL Albumin (3.5-5.0) g/dL 08/23/20 08/23/20 08/23/20 Range/Units 03:57 04:20 04:20 RBC 2.54 L (4.30-5.90) m/uL Hgb 7.6 L (13.0-17.5) gm/dL Hct 24.2 L (39.0-53.0) % RDW 16.2 H (11.5-15.5) % Chloride 111 H (98-107) mmol/L BUN 37 H (9-20) mg/dL Glucose 160 H (74-99) mg/dL POC Glucose (mg/dL) 155 H (75-99) mg/dL ALT 59 H (4-49) U/L Total Protein 5.3 L (6.3-8.2) g/dL Albumin 2.5 L (3.5-5.0) g/dL 08/23/20 08/23/20 Range/Units 08:17 12:17 RBC (4.30-5.90) m/uL Hgb (13.0-17.5) gm/dL Hct (39.0-53.0) % RDW (11.5-15.5) % Chloride (98-107) mmol/L BUN (9-20) mg/dL Glucose (74-99) mg/dL POC Glucose (mg/dL) 158 H 150 H (75-99) mg/dL ALT (4-49) U/L Total Protein (6.3-8.2) g/dL Albumin (3.5-5.0) g/dL Assessment and Plan Assessment: Impression: Status post two-vessel CABG with PABLO to LAD and SVG to PDA on 07/18/2020. Postoperative respiratory failure, unexpected, failure to wean, felt to be multifactorial. Patient had to be reintubated 3 times since his surgery. Postoperative intraperitoneal hemorrhage requiring exploratory laparotomy ileostomy on 08/02, previous surgery on 07/24/20 for ischemic bowel, requiring bowel resection. Status post tracheostomy and PEG tube placement on 08/20/2020. Bilateral pleural effusions requiring left thoracentesis on 08/15/2020. History of hypothyroidism. History of moderate severe COPD, FEV1 of 53%. Acute on chronic kidney disease, patient has a baseline kidney disease stage III. Type 2 diabetes. Postoperative acute blood loss anemia, related to his multiple surgeries. History of coronary artery disease and previous stent placement. Recommendation: Continue present ventilatory support. However will try the patient again on trach collar today since he tolerated that quite well yesterday. Continue enteral feedings. Continue antibiotics as per infectious disease on the case. Continue bronchodilators. Continue low-dose aspirin and beta blockers. Continue bronchodilators. Continue GI and DVT prophylaxis. Continue Eraxis, Zosyn, as per infectious disease on the case. Continue wound VAC. Consider discharge to LTAC, possibly tomorrow according to thoracic surgery on the case. Prognosis remains extremely poor and guarded. We will continue to follow. Critical care time is 32 minutes Time with Patient: Greater than 30
[2020-08-23 14:52] VITALS: BMI 26.9
[2020-08-23 16:02] LABS: Glucose,Whole Blood 121 mg/dL (75-99)
[2020-08-23 19:51] LABS: Glucose,Whole Blood 169 mg/dL (75-99)
--- NOTE | 2020-08-23 22:13 | PN ---
PROGRESS NOTE DATE OF SERVICE: 08/23/2020 REASON FOR FOLLOWUP: Leukocytosis and aspiration pneumonia. INTERVAL HISTORY: The patient is currently afebrile. The patient is breathing comfortably. He is hemodynamically stable. Currently FiO2 is stable at 40%. No significant purulent secretion through the ET or any diarrhea has been reported by nursing staff. PHYSICAL EXAMINATION: Blood pressure 115/50 with a pulse of 81, temperature 97.9. He is 100% on 40% FiO2. General description is an elderly male lying in bed in no distress. RESPIRATORY SYSTEM: Unlabored breathing with decreased breath sounds at the base. No wheeze. HEART: S1, S2. Regular rate and rhythm. ABDOMEN: Soft. No tenderness. LABS: Hemoglobin 7.3, white count 8.3, BUN of 37, creatinine is 1.25. DIAGNOSTIC IMPRESSION AND PLAN: Patient with a component of aspiration pneumonia in this patient whose culture has been negative and the patient received adequate antibiotic therapy. Recommend discontinuation of antibiotics and monitor the patient closely off antibiotics. Continue with supportive care. MMODL / IJN: [id number] /
[2020-08-23 23:35] LABS: Glucose,Whole Blood 131 mg/dL (75-99)
[2020-08-24] MEDS: IPRATROPIUM-ALBUTEROL 3 ML NEB INHALATION SCH ×6 (01:09→18:48)
[2020-08-24] MEDS: DEXMEDETOMIDINE/0.9% NACL(PMX) 400 MCG in EMPTY BAG 1 BAG IV SCH (01:56)
[2020-08-24] MEDS: INSULIN ASPART (NovoLOG) 100 UNIT/ML VIAL SQ SCH ×7 (04:30→23:45)
[2020-08-24 04:43] LABS: Glucose,Whole Blood 165 mg/dL (75-99)
[2020-08-24 04:50] LABS: ABG Base Excess -0.7 mmol/L; ABG HCO3 24 mmol/L (21-25); ABG PCO2 41 mmHg (35-45); ABG PH 7.38 (7.35-7.45); ABG PO2 118 mmHg (83-108); ABG TCO2 26 mmol/L (19-24); Allen Test Performed? Yes
[2020-08-24 05:02] LABS: Anisocytosis Slight; Basophils % (A) 1 %; Eosinophils # (A) 0.1 k/uL (0-0.7); Eosinophils % (A) 1 %; HCT 26.2 % (39.0-53.0); HGB 7.8 gm/dL (13.0-17.5); Hypochromasia Marked; Lymphocytes # (A) 0.5 k/uL (1.0-4.8); Lymphocytes % (A) 6 %; MCH 28.6 pg (25.0-35.0); MCHC 29.9 g/dL (31.0-37.0); MCV 95.9 fL (80.0-100.0); Mean Platelet Volume 8.4; Monocytes # (A) 0.6 k/uL (0-1.0); Monocytes % (A) 6 %; Neutrophils # (A) 7.8 k/uL (1.3-7.7); Neutrophils % (A) 85 %; Platelet Count 287 k/uL (150-450); RBC 2.73 m/uL (4.30-5.90); RDW 16.1 % (11.5-15.5); WBC 9.2 k/uL (3.8-10.6)
[2020-08-24 05:23] LABS: Albumin 2.5 g/dL (3.5-5.0); Calcium 9.3 mg/dL (8.4-10.2); Magnesium 1.6 mg/dL (1.6-2.3); Potassium 3.9 mmol/L (3.5-5.1); Total Bilirubin 0.5 mg/dL (0.2-1.3); Total Protein 5.5 g/dL (6.3-8.2)
[2020-08-24] MEDS: MAGNESIUM SULFATE-D5W PMX 1 GM in DEXTROSE/WATER 1 100ML.BAG IVPB SCH ×2 (06:31→08:50)
[2020-08-24] MEDS ORDERED: POTASSIUM BICARBONATE/CIT AC 20 MEQ TABLET.EFF NG-TUBE SCH (07:00)
[2020-08-24] MEDS: BUDESONIDE 1 MG/2 ML NEBU INHALATION SCH ×2 (07:03→18:49)
[2020-08-24] MEDS: FORMOTEROL FUMARATE 20 MCG/2 ML NEBU INHALATION SCH ×2 (07:03→18:49)
--- NOTE | 2020-08-24 07:14 | XR ---
EXAMINATION TYPE: XR chest 1V portable DATE OF EXAM: 08/24/2020 COMPARISON: 08/23/2020 INDICATION: Respiratory failure TECHNIQUE: Single frontal view of the chest is obtained. FINDINGS: The heart size is normal. The pulmonary vasculature is normal. Bilateral lung base infiltrates are present. Small pleural effusions are present. Tracheostomy tube is in the midline. PICC line is present on the right with the tip of the superior v juliann cava region. IMPRESSION: 1. Bibasilar infiltrates with small bilateral pleural effusions.
--- NOTE | 2020-08-24 07:39 | P.PN ---
Subjective Progress Note Date: 08/24/20 Principal diagnosis: Symptomatic triple-vessel coronary artery disease, mild left ventricular dysfunction. Previuos medical history of stenting to his right coronary artery in 2002, hypertension, hyperlipidemia, hypothyroid status post partial thyroidectomy, previous tobacco dependence quit smoking 20 years ago, moderate chronic obstructive pulmonary disease with preoperative FEV1 of 56% of predicted value, bullous emphysema, remote history of pneumonia, type 2 diabetes mellitus with a preoperative hemoglobin A1c of 5.2%, chronic kidney disease stage III with a baseline creatinine of 1.4-1.5, family history of premature coronary artery disease with brother having had CABG at less than 50 years old. POD #37 double coronary artery bypass grafting using the left internal mammary artery to left anterior descending coronary artery, reverse greater saphenous vein graft from the aorta to the posterior descending coronary artery. Exclusion of the left atrial appendage using a 35 mm Atriclip, endoscopic harvesting of the right greater saphenous vein from the groin to above the ankle level, graft flow measurement using the [employer] system, intraoperative transesophageal echocardiogram and epi-aortic scanning. Postoperative acute blood loss anemia, expected outcome from hemodilution and cardiopulmonary bypass. Postoperative paroxysmal atrial fibrillation, unexpected but common outcome after open heart surgery. Pneumoperitoneum, unexpected Acute on chronic kidney disease secondary to ATN Pneumatosis of the small bowel POD #31 ischemic bowel, small bowel resection Acute hypoxic respiratory failure with reintubation, prolonged mechanical ventilation, unexpected Acute abdomen, intraperitoneal hemorrhage POD #22 Exploratory laparotomy, washout of peritoneal cavity, ileostomy with small bowel resection POD #4 tracheostomy placement, EGD with PEG tube placement The patient is currently laying in bed in the intensive care unit in no acute distress. Currently in sinus rhythm with heart rate in the 70s, continues on amiodarone, lopressor, Eliquis. IV antibiotics discontinued by Dr. Frederick, most recent cultures negative. Remains afebrile, white blood cell count 9.2. Patient continues to have liquid light brown stool through ileostomy. Wound vac in place to mid abdominal incision. Remains on minimal Precedex, does open eyes, moves all extremities, follows commands, shakes head no when asked if in pain. TF continues at goal with minimal residual. Tolerated trach collar for 8 hours the last 2 days. Lasix IV re-added yesterday by pulmonary. No new concerns. Anticipate DC to LTAC today if insurance authorization obtained. Objective - Vital Signs Vital signs: Vital Signs Temp 97.9 F 08/24/20 04:00 Pulse 79 08/24/20 07:03 Resp 30 H 08/24/20 07:00 BP 99/52 08/24/20 07:00 Pulse Ox 97 08/24/20 07:00 Intake & Output 08/23/20 08/24/20 08/24/20 18:59 06:59 18:59 Intake Total 0873.057 5249.037 63 Output Total 2190 1195 50 Balance -595.765 244.037 13 Weight 87.6 kg 87.3 kg Intake: IV 336 36 3 Anidulafungin 100 mg In 100 Sodium Chloride 0.9% 100 ml @ 84 mls/hr IVPB DAILY [facility] Rx#:[id number] Piperacillin-Tazobactam 3 200 .375 gm In Sodium Chloride 0.9% 100 ml @ 25 mls/hr IVPB Q8HR [facility] Rx# :[id number] pressure bag 36 36 3 Intake, IV Titration 418.235 323.037 20 Amount Dexmedetomidine/0.9% NaCl 98.75 (Pmx) 400 mcg In Empty Bag 1 bag @ Titrate IV . Q0M [facility] Rx#:[id number] Dexmedetomidine/0.9% NaCl 79.485 83.037 (Pmx) 400 mcg In Empty Bag 1 bag @ Titrate IV . Q0M [facility] Rx#:[id number] Sodium Chloride 0.45% 1, 240 240 20 000 ml @ 20 mls/hr IV . Q24H [facility] Rx#:[id number] Tube Feeding 440 480 40 Other 400 600 Output: Urine 1540 595 50 Stool 650 600 Other: Voiding Method Indwelling Catheter Indwelling Catheter # Bowel Movements 150 ABP, PAP, CO, CI - Last Documented Arterial Blood Pressure 100/43 Pulmonary Artery Pressure 33/14 Cardiac Output 6.7 Cardiac Index 3.1 - Constitutional General appearance: Present: cooperative, no acute distress - Respiratory Details: Lungs sounds diminished bilaterally. Respirations even, non-labored on mechanical ventilation. Current settings assist control mode, FiO2 40%, tidal volume 450, respiratory rate 24, PEEP 5. #8 Shiley tracheostomy present - Cardiovascular Details: S1, S2 present. Regular rate and rhythm, sinus rhythm on telemetry with rate in the 70s. Sternum stable. Palpable peripheral pulses bilaterally. No edema present. Heart hugger, antiembolism stockings, SCDs present. Right brachial PICC line present. Left radial arterial line present - Gastrointestinal Gastrointestinal Comment(s): Abdomen soft, nontender, nondistended. Active bowel sounds present. Ileostomy present to RLQ, stoma pink and moist, positive light brown liquid stool, 1250 mL in the last 24 hours. LUQ PEG present, tube feeding and free water flushes continue with minimal residual - Genitourinary Genitourinary Comment(s): Villafana catheter present draining clear, yellow urine. Output 2135 mL in the last 24 hours - Integumentary Integumentary Comment(s): Skin is warm and dry. Anterior chest incision well approximated and covered with dry intact dressing. Right lower extremity EVH site well approximated. Mid abdominal incision open, wound vac in place. Shear injury to shoulder blade healing. Stage II present to coccyx fold - Neurologic Neurologic: Present: CNII-XII intact - Musculoskeletal Musculoskeletal: Present: generalized weakness, strength equal bilaterally - Psychiatric Psychiatric: Present: A&O x's 3, appropriate affect - Allied health notes Allied health notes reviewed: nursing - Labs CBC & Chem 7: 08/24/20 04:40 08/24/20 04:40 Labs: Abnormal Lab Results - Last 24 Hours (Table) 08/23/20 08/23/20 08/23/20 Range/Units 08:17 12:17 16:01 RBC (4.30-5.90) m/uL Hgb (13.0-17.5) gm/dL Hct (39.0-53.0) % MCHC (31.0-37.0) g/dL RDW (11.5-15.5) % Neutrophils # (1.3-7.7) k/uL Lymphocytes # (1.0-4.8) k/uL ABG pO2 (83-108) mmHg ABG Total CO2 (19-24) mmol/L ABG O2 Saturation (94-97) % Chloride (98-107) mmol/L BUN (9-20) mg/dL Creatinine (0.66-1.25) mg/dL Glucose (74-99) mg/dL POC Glucose (mg/dL) 158 H 150 H 121 H (75-99) mg/dL Total Protein (6.3-8.2) g/dL Albumin (3.5-5.0) g/dL 08/23/20 08/23/20 08/24/20 Range/Units 19:50 23:33 04:40 RBC 2.73 L (4.30-5.90) m/uL Hgb 7.8 L (13.0-17.5) gm/dL Hct 26.2 L (39.0-53.0) % MCHC 29.9 L (31.0-37.0) g/dL RDW 16.1 H (11.5-15.5) % Neutrophils # 7.8 H (1.3-7.7) k/uL Lymphocytes # 0.5 L (1.0-4.8) k/uL ABG pO2 (83-108) mmHg ABG Total CO2 (19-24) mmol/L ABG O2 Saturation (94-97) % Chloride (98-107) mmol/L BUN (9-20) mg/dL Creatinine (0.66-1.25) mg/dL Glucose (74-99) mg/dL POC Glucose (mg/dL) 169 H 131 H (75-99) mg/dL Total Protein (6.3-8.2) g/dL Albumin (3.5-5.0) g/dL 08/24/20 08/24/20 08/24/20 Range/Units 04:40 04:42 04:46 RBC (4.30-5.90) m/uL Hgb (13.0-17.5) gm/dL Hct (39.0-53.0) % MCHC (31.0-37.0) g/dL RDW (11.5-15.5) % Neutrophils # (1.3-7.7) k/uL Lymphocytes # (1.0-4.8) k/uL ABG pO2 118 H (83-108) mmHg ABG Total CO2 26 H (19-24) mmol/L ABG O2 Saturation 100.0 H (94-97) % Chloride 108 H (98-107) mmol/L BUN 47 H (9-20) mg/dL Creatinine 1.53 H (0.66-1.25) mg/dL Glucose 166 H (74-99) mg/dL POC Glucose (mg/dL) 165 H (75-99) mg/dL Total Protein 5.5 L (6.3-8.2) g/dL Albumin 2.5 L (3.5-5.0) g/dL - Imaging and Cardiology Chest x-ray: report reviewed, image reviewed Assessment and Plan Assessment: 1. Symptomatic triple-vessel coronary artery disease, status post 2 vessel CABG 2. Mild left ventricular dysfunction 3. Previuos history of stenting to his right coronary artery in 2002 4. Hypertension 5. Hyperlipidemia 6. Hypothyroid status post partial thyroidectomy 7. Previous tobacco dependence with bullous emphysema 8. Moderate chronic obstructive pulmonary disease with preoperative FEV1 of 56% of predicted value 9. Remote history of pneumonia 10. Type 2 diabetes mellitus with a preoperative hemoglobin A1c of 5.2% 11. Chronic kidney disease stage III with a baseline creatinine of 1.4-1.5 12. Family history of premature coronary artery disease with brother having had CABG at less than 50 years old 13. Postoperative acute blood loss anemia, expected outcome 14. Postoperative paroxysmal atrial fibrillation, unexpected, status post exclusion of the left atrial appendage 15. Pneumoperitoneum, unexpected 16. Acute on chronic kidney disease with hyponatremia, hyperkalemia 17. Pneumatosis of the small bowel, status post small bowel resection 18. Sputum culture positive for pseudomonas fluorescens, second sputum positive for aurora 19. Acute hypoxic respiratory failure with reintubation, prolonged mechanical ventilation, S/P tracheostomy placement 20. Acute abdomen, intraperitoneal hemorrhage, S/P exploratory laparotomy, washout of peritoneal cavity, ileostomy with small bowel resection 21. Generalized debility secondary to above, S/P PEG placement for nutrition Plan: 1. Continue low dose aspirin, statin, beta apolinar. 2. Continue amiodarone for afib prophylaxis. Continue Eliquis for anticoagulation 3. Mechanical ventilation, bronchodilators, inhaled steroids per pulmonology management. Use as minimal sedation as possible, trach collar again today as tolerated 4. Will monitor daily labs and chest x-rays. 5. GI/DVT prophylaxis. 6. Pain control with current medication regimen. 7. Insulin management per primary care service 8. Continue TF, check for residual 9. Nephrology following. Avoid nephrotoxic agents. 10. Strict accurate intake and output, daily weight 11. Antibiotics discontinued by ID, continue to monitor response 12. Wound vac to be changed -- 13. DC planning continues, social work on board to assist. Anticipate DC to LTAC today if insurance authorization is obtained 14. Sedation will need to be switched to propofol for transfer as LTAC does not take Precedex. Discontinue arterial line before transfer 15. More recommendations to follow based on patient's clinical course. Time with Patient: Greater than 30
[2020-08-24 08:42] LABS: Glucose,Whole Blood 167 mg/dL (75-99)
[2020-08-24] MEDS: FUROSEMIDE 10 MG/ML 4 ML VIAL IV SCH (08:51)
[2020-08-24] MEDS: CHLORHEXIDINE GLUCONATE 15 ML CUP MUCOUS MEM SCH ×2 (08:51→20:07)
[2020-08-24] MEDS: LEVOTHYROXINE IVP 100 MCG/5 ML VIAL IV SCH (08:51)
[2020-08-24] MEDS: PANTOPRAZOLE 40 MG/10 ML VIAL IVP SCH ×2 (08:51→20:07)
[2020-08-24] MEDS: METOPROLOL TARTRATE 25 MG TAB PO SCH ×3 (08:52→20:07)
[2020-08-24] MEDS: ASPIRIN 81 MG PO SCH (08:52)
[2020-08-24] MEDS: AMIODARONE 200 MG TAB PO SCH (08:52)
[2020-08-24] MEDS: ATORVASTATIN 40 MG TAB PO SCH (08:52)
[2020-08-24] MEDS: APIXABAN 5 MG TAB PO SCH ×2 (08:52→20:07)
--- NOTE | 2020-08-24 09:14 | PN ---
PROGRESS NOTE Mr. Tinoco is a 80-year-old male who presented and underwent coronary artery bypass grafting. His postoperative course was complicated by abdominal viscus rupture and subsequently bleeding and underwent repeat surgical intervention and had a prolonged intubation and multiple re-intubations. He has a trach tube at this time and a PEG tube. He had paroxysmal atrial fibrillation, but he is back in sinus mechanism at this time. He is awake, alert, following commands. He is hemodynamically stable requiring no hemodynamic support. He continues on amiodarone 200 mg daily, Eliquis 5 mg twice a day, aspirin once a day, Lipitor 40 mg daily, metoprolol tartrate 25 mg 3 times a day. PHYSICAL EXAMINATION: Blood pressure 100/50 with the heart rate in 70s. LUNGS: No wheezes or rales. HEART: Regular rate and rhythm. S1, S2. No S3. No rub. ABDOMEN: Soft. PEG tube in place and dressing in place. EXTREMITIES: No significant edema. Chest x-ray shows no pneumothorax with mild bibasilar infiltrate and small bilateral pleural effusion. LAB DATA: Lab data revealed a BUN and creatinine of 47 and 1.53. Hemoglobin of 7.8. IMPRESSION: 1. Status post coronary artery bypass grafting. 2. Ruptured viscus requiring surgical intervention with subsequent bleeding. 3. Repeat intubation respiratory failure, status post tracheostomy. 4. Status post PEG tube placement. 5. Paroxysmal atrial fibrillation. 6. Chronic kidney disease, acute on chronic. 7. Diabetes mellitus. RECOMMENDATION: From the cardiac standpoint, he is stable on the present regimen. He is anticoagulated. He will continue on present protocol. The plan is to consider discharge to LTAC probable today and to proceed with slow weaning and extubation. MMODL / IJN: [id number] /
--- NOTE | 2020-08-24 10:07 | P.PN ---
Subjective Progress Note Date: 08/24/20 Principal diagnosis: CABG Patient seen and examined. He is doing well. He tolerated trach collar for 10 hours yesterday. He is able to communicate with head nodding. No pain or sob. Objective - Vital Signs Vital signs: Vital Signs Temp 98.6 F 08/24/20 08:00 Pulse 99 08/24/20 09:00 Resp 40 H 08/24/20 09:00 BP 132/67 08/24/20 09:00 Pulse Ox 98 08/24/20 09:00 Intake & Output 08/23/20 08/24/20 08/24/20 18:59 06:59 18:59 Intake Total 1380.230 8251.037 63 Output Total 2190 1195 50 Balance -595.765 244.037 13 Weight 87.6 kg 87.3 kg Intake: IV 336 36 3 Anidulafungin 100 mg In 100 Sodium Chloride 0.9% 100 ml @ 84 mls/hr IVPB DAILY [facility] Rx#:[id number] Piperacillin-Tazobactam 3 200 .375 gm In Sodium Chloride 0.9% 100 ml @ 25 mls/hr IVPB Q8HR [facility] Rx# :[id number] pressure bag 36 36 3 Intake, IV Titration 418.235 323.037 20 Amount Dexmedetomidine/0.9% NaCl 98.75 (Pmx) 400 mcg In Empty Bag 1 bag @ Titrate IV . Q0M [facility] Rx#:[id number] Dexmedetomidine/0.9% NaCl 79.485 83.037 (Pmx) 400 mcg In Empty Bag 1 bag @ Titrate IV . Q0M [facility] Rx#:[id number] Sodium Chloride 0.45% 1, 240 240 20 000 ml @ 20 mls/hr IV . Q24H [facility] Rx#:[id number] Tube Feeding 440 480 40 Other 400 600 Output: Urine 1540 595 50 Stool 650 600 Other: Voiding Method Indwelling Catheter Indwelling Catheter # Bowel Movements 150 ABP, PAP, CO, CI - Last Documented Arterial Blood Pressure 100/43 Pulmonary Artery Pressure 33/14 Cardiac Output 6.7 Cardiac Index 3.1 - Exam Gen: awake, alert. HEENT: Trach collar in place. normocephalic, atraumatic, dry mucous membranes, + central line. Resp: adequate lung expansion, symmetric breathing, no accessory muscle use CVS: good distal perfusion x 4, RRR, no murmurs, clicks, gallops GI: Feeding tube in place, soft, NTTP, ND. Ileostomy bag and wound VAC present. : no SPT, no CVAT, malagon catheter is present MSK: No edema, no clubbing Neuro: Generally weak, non-focal, no sensory deficits, appropriate tone - Labs CBC & Chem 7: 08/24/20 04:40 08/24/20 04:40 Labs: Abnormal Lab Results - Last 24 Hours (Table) 08/23/20 08/23/20 08/23/20 Range/Units 12:17 16:01 19:50 RBC (4.30-5.90) m/uL Hgb (13.0-17.5) gm/dL Hct (39.0-53.0) % MCHC (31.0-37.0) g/dL RDW (11.5-15.5) % Neutrophils # (1.3-7.7) k/uL Lymphocytes # (1.0-4.8) k/uL ABG pO2 (83-108) mmHg ABG Total CO2 (19-24) mmol/L ABG O2 Saturation (94-97) % Chloride (98-107) mmol/L BUN (9-20) mg/dL Creatinine (0.66-1.25) mg/dL Glucose (74-99) mg/dL POC Glucose (mg/dL) 150 H 121 H 169 H (75-99) mg/dL Total Protein (6.3-8.2) g/dL Albumin (3.5-5.0) g/dL 08/23/20 08/24/20 08/24/20 Range/Units 23:33 04:40 04:40 RBC 2.73 L (4.30-5.90) m/uL Hgb 7.8 L (13.0-17.5) gm/dL Hct 26.2 L (39.0-53.0) % MCHC 29.9 L (31.0-37.0) g/dL RDW 16.1 H (11.5-15.5) % Neutrophils # 7.8 H (1.3-7.7) k/uL Lymphocytes # 0.5 L (1.0-4.8) k/uL ABG pO2 (83-108) mmHg ABG Total CO2 (19-24) mmol/L ABG O2 Saturation (94-97) % Chloride 108 H (98-107) mmol/L BUN 47 H (9-20) mg/dL Creatinine 1.53 H (0.66-1.25) mg/dL Glucose 166 H (74-99) mg/dL POC Glucose (mg/dL) 131 H (75-99) mg/dL Total Protein 5.5 L (6.3-8.2) g/dL Albumin 2.5 L (3.5-5.0) g/dL 08/24/20 08/24/20 08/24/20 Range/Units 04:42 04:46 08:41 RBC (4.30-5.90) m/uL Hgb (13.0-17.5) gm/dL Hct (39.0-53.0) % MCHC (31.0-37.0) g/dL RDW (11.5-15.5) % Neutrophils # (1.3-7.7) k/uL Lymphocytes # (1.0-4.8) k/uL ABG pO2 118 H (83-108) mmHg ABG Total CO2 26 H (19-24) mmol/L ABG O2 Saturation 100.0 H (94-97) % Chloride (98-107) mmol/L BUN (9-20) mg/dL Creatinine (0.66-1.25) mg/dL Glucose (74-99) mg/dL POC Glucose (mg/dL) 165 H 167 H (75-99) mg/dL Total Protein (6.3-8.2) g/dL Albumin (3.5-5.0) g/dL Assessment and Plan Plan: Acute hypoxic respiratory failure, b/l pleural effusion s/p L sided thoracentesis 08/15 - reintubated on 08/17 - management per pulmonary - S/P trach 08/20. Intraperitoneal hemorrhage, s/p ex lap, washout of peritoneal cavity and ileostomy on 08/02 Ischemic small bowel with pneumonperitoneum on 07/24 - surgery recs, continue to feeding - Discussed with ID, will discontinue eraxis, dapto d/melody on 08/20. Continue Zosyn for now. - S/P PEG placement 08/20 DM 2 - hold metformin - Inulin sliding scale - Follow blood sugars closely - A1C from 06/21/2020 5.2 P. A fib -eliquis. - Amio - metoprolol Hypotension -Off levo now Acute blood loss anemia and thrombocytopenia, anticipated outcome of surgery - follow CBC - transfuse as indicated COPD - on duonebs, pulmicort and formeterol. Coronary artery disease -Status post coronary artery bypass grafting -Cardiothoracic and cardiology following HTN - meds per CT surgery - follow BP CONNOR on CKD stage III - Resolved. - suspect due to fluid shifts - follow Cr - Avoid additional nephrotoxic agents - follow renal function closely after surgery Hypothyroidism status post partial thyroidectomy - synthroid Morbid obesity with BMI 30.5 -Outpatient structured weight loss Chronic: ADDY Jacobs's Disposition: Likely LTAC Anticipated discharge: Once bed is available.
--- NOTE | 2020-08-24 10:49 | P.PN ---
Subjective Progress Note Date: 08/24/20 CHIEF COMPLAINT: Status post CABG 2 vessels HISTORY OF PRESENT ILLNESS: Patient remains in the ICU. Lying in bed. He is status post peg tube and tracheostomy placement. Patient is tolerating his tube feedings. His tube feedings are being increased to 45 mL per hour. Patient is currently on trach collar. Patient is having stool through his ileostomy. Continues to have wound VAC in place for his abdominal incision. He is off of pressors. The continue to try to wean patient off of the Precedex. Afebrile WBC 9.2 Hgb 7.8 cr 1.58 they're working on discharging patient to select specialty PHYSICAL EXAM: VITAL SIGNS: Reviewed. GENERAL: Well-developed in no acute distress. HEENT: No sclera icterus. Extraocular movements grossly intact. Moist buccal mucosa. Head is atraumatic, normocephalic. ABDOMEN: Soft. Abdominal incision with wound VAC in place. Ileostomy right side of abdomen with brown liquidy stool. PEG tube site clean dry and intact NEUROLOGIC: Is awake and able to follow simple commands ASSESSMENT: 1. Intraperitoneal hemorrhage status post exploratory laparotomy, washout of peritoneal cavity and ileostomy on 08/02/2020 2. Ischemic small bowel with evidence of pneumatosis status post small bowel resection on 07/24/2020 3. Acute hypoxic respiratory failure requiring mechanical ventilation 4. symptomatic triple-vessel coronary artery disease status post 2 vessel coronary bypass grafting surgery 5. Diabetes mellitus type 2 PLAN: -Continued tube feedings -Continue wound VAC -Continue antibiotics per ID -Continue supportive care -DVT prophylaxis subcu Heparin and GI prophylaxis Protonix Physician [employer] Manager note has been reviewed by physician. Signing provider agrees with the documented findings, assessment, and plan of care. Objective - Vital Signs Vital signs: Vital Signs Temp 98.6 F 08/24/20 08:00 Pulse 89 08/24/20 10:00 Resp 43 H 08/24/20 10:00 BP 132/66 08/24/20 10:00 Pulse Ox 97 08/24/20 10:00 Intake & Output 08/23/20 08/24/20 08/24/20 18:59 06:59 18:59 Intake Total 2549.408 4222.037 532 Output Total 2190 1195 430 Balance -595.765 244.037 102 Weight 87.6 kg 87.3 kg Intake: IV 336 36 112 Anidulafungin 100 mg In 100 Sodium Chloride 0.9% 100 ml @ 84 mls/hr IVPB DAILY [facility] Rx#:[id number] Magnesium Sulfate-D5w Pmx 100 1 gm In Dextrose/Water 1 100ml.bag @ 100 mls/hr IVPB Q1H [facility] Rx#: [id number] Piperacillin-Tazobactam 3 200 .375 gm In Sodium Chloride 0.9% 100 ml @ 25 mls/hr IVPB Q8HR [facility] Rx# :[id number] pressure bag 36 36 12 Intake, IV Titration 418.235 323.037 20 Amount Dexmedetomidine/0.9% NaCl 98.75 (Pmx) 400 mcg In Empty Bag 1 bag @ Titrate IV . Q0M [facility] Rx#:[id number] Dexmedetomidine/0.9% NaCl 79.485 83.037 (Pmx) 400 mcg In Empty Bag 1 bag @ Titrate IV . Q0M [facility] Rx#:[id number] Sodium Chloride 0.45% 1, 240 240 20 000 ml @ 20 mls/hr IV . Q24H [facility] Rx#:[id number] Tube Feeding 440 480 200 Other 400 600 200 Output: Urine 1540 595 430 Stool 650 600 Other: Voiding Method Indwelling Catheter Indwelling Catheter Indwelling Catheter # Bowel Movements 150 ABP, PAP, CO, CI - Last Documented Arterial Blood Pressure 100/43 Pulmonary Artery Pressure 33/14 Cardiac Output 6.7 Cardiac Index 3.1 - Labs CBC & Chem 7: 08/24/20 04:40 08/24/20 04:40 Labs: Abnormal Lab Results - Last 24 Hours (Table) 08/23/20 08/23/20 08/23/20 Range/Units 12:17 16:01 19:50 RBC (4.30-5.90) m/uL Hgb (13.0-17.5) gm/dL Hct (39.0-53.0) % MCHC (31.0-37.0) g/dL RDW (11.5-15.5) % Neutrophils # (1.3-7.7) k/uL Lymphocytes # (1.0-4.8) k/uL ABG pO2 (83-108) mmHg ABG Total CO2 (19-24) mmol/L ABG O2 Saturation (94-97) % Chloride (98-107) mmol/L BUN (9-20) mg/dL Creatinine (0.66-1.25) mg/dL Glucose (74-99) mg/dL POC Glucose (mg/dL) 150 H 121 H 169 H (75-99) mg/dL Total Protein (6.3-8.2) g/dL Albumin (3.5-5.0) g/dL 08/23/20 08/24/20 08/24/20 Range/Units 23:33 04:40 04:40 RBC 2.73 L (4.30-5.90) m/uL Hgb 7.8 L (13.0-17.5) gm/dL Hct 26.2 L (39.0-53.0) % MCHC 29.9 L (31.0-37.0) g/dL RDW 16.1 H (11.5-15.5) % Neutrophils # 7.8 H (1.3-7.7) k/uL Lymphocytes # 0.5 L (1.0-4.8) k/uL ABG pO2 (83-108) mmHg ABG Total CO2 (19-24) mmol/L ABG O2 Saturation (94-97) % Chloride 108 H (98-107) mmol/L BUN 47 H (9-20) mg/dL Creatinine 1.53 H (0.66-1.25) mg/dL Glucose 166 H (74-99) mg/dL POC Glucose (mg/dL) 131 H (75-99) mg/dL Total Protein 5.5 L (6.3-8.2) g/dL Albumin 2.5 L (3.5-5.0) g/dL 08/24/20 08/24/20 08/24/20 Range/Units 04:42 04:46 08:41 RBC (4.30-5.90) m/uL Hgb (13.0-17.5) gm/dL Hct (39.0-53.0) % MCHC (31.0-37.0) g/dL RDW (11.5-15.5) % Neutrophils # (1.3-7.7) k/uL Lymphocytes # (1.0-4.8) k/uL ABG pO2 118 H (83-108) mmHg ABG Total CO2 26 H (19-24) mmol/L ABG O2 Saturation 100.0 H (94-97) % Chloride (98-107) mmol/L BUN (9-20) mg/dL Creatinine (0.66-1.25) mg/dL Glucose (74-99) mg/dL POC Glucose (mg/dL) 165 H 167 H (75-99) mg/dL Total Protein (6.3-8.2) g/dL Albumin (3.5-5.0) g/dL
--- NOTE | 2020-08-24 11:15 | P.PN ---
Subjective Patient is seen in follow-up for acute kidney injury. Renal function is slightly worse from diuretics. Off vasopressors. Status post trach and PEG. Receiving tube feeding at goal. Hemodynamically stable. No changes overnight. Potentially going to [facility] soon. Vital signs are stable. HEENT: Head exam is unremarkable. Tracheostomy noted. LUNGS: Breath sounds decreased. HEART: Rate and Rhythm are regular. ABDOMEN: Soft, nondistended. Ileostomy and PEG tube noted. EXTREMITITES: Trace edema. Objective - Vital Signs Vital signs: Vital Signs Temp 98.6 F 08/24/20 08:00 Pulse 92 08/24/20 11:00 Resp 37 H 08/24/20 11:00 BP 135/72 08/24/20 11:00 Pulse Ox 97 08/24/20 11:00 Intake & Output 08/23/20 08/24/20 08/24/20 18:59 06:59 18:59 Intake Total 4428.925 4547.037 535 Output Total 2190 1195 555 Balance -595.765 244.037 -20 Weight 87.6 kg 87.3 kg Intake: IV 336 36 115 Anidulafungin 100 mg In 100 Sodium Chloride 0.9% 100 ml @ 84 mls/hr IVPB DAILY [facility] Rx#:[id number] Magnesium Sulfate-D5w Pmx 100 1 gm In Dextrose/Water 1 100ml.bag @ 100 mls/hr IVPB Q1H [facility] Rx#: [id number] Piperacillin-Tazobactam 3 200 .375 gm In Sodium Chloride 0.9% 100 ml @ 25 mls/hr IVPB Q8HR [facility] Rx# :[id number] pressure bag 36 36 15 Intake, IV Titration 418.235 323.037 20 Amount Dexmedetomidine/0.9% NaCl 98.75 (Pmx) 400 mcg In Empty Bag 1 bag @ Titrate IV . Q0M [facility] Rx#:[id number] Dexmedetomidine/0.9% NaCl 79.485 83.037 (Pmx) 400 mcg In Empty Bag 1 bag @ Titrate IV . Q0M [facility] Rx#:[id number] Sodium Chloride 0.45% 1, 240 240 20 000 ml @ 20 mls/hr IV . Q24H [facility] Rx#:[id number] Tube Feeding 440 480 200 Other 400 600 200 Output: Urine 1540 595 555 Stool 650 600 Other: Voiding Method Indwelling Catheter Indwelling Catheter Indwelling Catheter # Bowel Movements 150 ABP, PAP, CO, CI - Last Documented Arterial Blood Pressure 100/43 Pulmonary Artery Pressure 33/14 Cardiac Output 6.7 Cardiac Index 3.1 - Labs CBC & Chem 7: 08/24/20 04:40 08/24/20 04:40 Labs: Abnormal Lab Results - Last 24 Hours (Table) 08/23/20 08/23/20 08/23/20 Range/Units 12:17 16:01 19:50 RBC (4.30-5.90) m/uL Hgb (13.0-17.5) gm/dL Hct (39.0-53.0) % MCHC (31.0-37.0) g/dL RDW (11.5-15.5) % Neutrophils # (1.3-7.7) k/uL Lymphocytes # (1.0-4.8) k/uL ABG pO2 (83-108) mmHg ABG Total CO2 (19-24) mmol/L ABG O2 Saturation (94-97) % Chloride (98-107) mmol/L BUN (9-20) mg/dL Creatinine (0.66-1.25) mg/dL Glucose (74-99) mg/dL POC Glucose (mg/dL) 150 H 121 H 169 H (75-99) mg/dL Total Protein (6.3-8.2) g/dL Albumin (3.5-5.0) g/dL 08/23/20 08/24/20 08/24/20 Range/Units 23:33 04:40 04:40 RBC 2.73 L (4.30-5.90) m/uL Hgb 7.8 L (13.0-17.5) gm/dL Hct 26.2 L (39.0-53.0) % MCHC 29.9 L (31.0-37.0) g/dL RDW 16.1 H (11.5-15.5) % Neutrophils # 7.8 H (1.3-7.7) k/uL Lymphocytes # 0.5 L (1.0-4.8) k/uL ABG pO2 (83-108) mmHg ABG Total CO2 (19-24) mmol/L ABG O2 Saturation (94-97) % Chloride 108 H (98-107) mmol/L BUN 47 H (9-20) mg/dL Creatinine 1.53 H (0.66-1.25) mg/dL Glucose 166 H (74-99) mg/dL POC Glucose (mg/dL) 131 H (75-99) mg/dL Total Protein 5.5 L (6.3-8.2) g/dL Albumin 2.5 L (3.5-5.0) g/dL 08/24/20 08/24/20 08/24/20 Range/Units 04:42 04:46 08:41 RBC (4.30-5.90) m/uL Hgb (13.0-17.5) gm/dL Hct (39.0-53.0) % MCHC (31.0-37.0) g/dL RDW (11.5-15.5) % Neutrophils # (1.3-7.7) k/uL Lymphocytes # (1.0-4.8) k/uL ABG pO2 118 H (83-108) mmHg ABG Total CO2 26 H (19-24) mmol/L ABG O2 Saturation 100.0 H (94-97) % Chloride (98-107) mmol/L BUN (9-20) mg/dL Creatinine (0.66-1.25) mg/dL Glucose (74-99) mg/dL POC Glucose (mg/dL) 165 H 167 H (75-99) mg/dL Total Protein (6.3-8.2) g/dL Albumin (3.5-5.0) g/dL Assessment and Plan Plan: Assessment: 1. Acute kidney injury secondary to hemodynamic ATN. No hydronephrosis noted on computed tomography scan. No proteinuria on UA. Nonoliguric. Renal function worse from diuretics. Creatinine 1.53 today. 2. Chronic kidney disease stage III with baseline creatinine in the range of 1.2-1.5 secondary to nephrosclerosis. UA from June 2020 was benign. 3. Coronary artery disease status post 2 vessel CABG on July 18. 4. Hypervolemic hyponatremia. Resolved. s/p diuresis. Became slightly hypernatremic and is now maintained on free water flushes with his tube feeding. 5. Bowel ischemia status post exploratory laparotomy and resection. Underwent another exploratory laparotomy on Andrew 16 with ileostomy. 6. Diabetes mellitus. 7. Volume overload. Improved with diuresis. 8. A. fib maintained on Lopressor. 9. Anemia of chronic kidney disease and post-cabg. Status post blood transfusion this admission. Maintained on Aranesp. Plan: Maintain tube feeding. Also receiving free water flushes 200 mL every 4 hours. Avoid nephrotoxins. Continue to monitor renal function and urine output. Decrease Lasix to 40 mg orally every other day upon d/c. [facility].
[2020-08-24] MEDS: QUEtiapine 25 MG TAB PO SCH ×2 (11:29→21:07)
[2020-08-24 11:33] LABS: Glucose,Whole Blood 166 mg/dL (75-99)
--- NOTE | 2020-08-24 13:49 | P.PN ---
Subjective Progress Note Date: 08/24/20 Principal diagnosis: Coronary artery disease, status post 2 vessel CABG. 79-year-old white male patient with past medical history of hypertension, hyperlipidemia, moderate to severe COPD with the baseline FEV1 of 56% of predicted who came in on 07/18/2020 for elective two-vessel bypass grafting with PABLO to LAD, and SVG to the PDA. He was seen in the intensive care unit [facility] surgery, patient was successfully weaned and extubated from mechanical ventilator and under 6 hours following his OR exit, is currently awake and alert, sitting in the chair, he is currently on 2 L of oxygen, his pulse ox is 98%, hemodynamically he stable, blood pressure is 106/51, PA pressures 35/11, CVP is 8, no fever or chills, IV fluids including the 0.9 normal saline at a rate of 30 ML per hour, insulin is 4.5 units per hour, no vasoactive drips. Today's chest x-ray shows a pneumoperitoneum with lucency present underneath the right hemidiaphragm. He has left pleural and mediastinal chest tube, and there has been 500 mL of serosanguineous output from the left pleural and 350 mL from the mediastinal chest tube in the last 24 hours. Is having some mild discomfort under the right rib cage, but no acute distress, abdomen is distended but soft, he is hemodynamically stable, he is in sinus mechanism, no nausea vomiting or diarrhea. CT of the abdomen and pelvis is pending today's labs have been reviewed, showing white blood cell count of 11.9, hemoglobin of 9, sodium is 133, the rest of the electrolytes were within normal limits, B1 is 25 creatinine is 1.18 The patient is seen today 07/20/2020 in follow-up in the intensive care unit. He is currently sitting up in a chair at the bedside. Awake and alert in no acute distress. This is postoperative day #2, two-vessel coronary artery bypass surgery. He is currently on 2 L/m per nasal cannula maintaining good O2 saturat ion in the 90s. He did have issues with atrial fibrillation and is currently on Cardizem drip at 10 mg per hour. He did receive IV amiodarone, initiated on by mouth today. 0.9 normal saline at KVO. Chest x-ray reveals removal of mediastinal drains. Right-sided pneumoperitoneum is no longer appreciated. Left-sided chest tube remains in place. Bibasilar patchy atelectasis remains. White count 18.2. Hemoglobin 8.9. Platelet count 99,000. Sodium 127. Potassium 5.0. Creatinine 1.37. He is pulling approximately 3164-9095 ML's on the incentive spirometer. Continued on bronchodilators. Heparin for DVT prophylaxis. Patient is seen today 07/22/2020 in follow-up on the intensive care unit. He is currently sitting up in a chair at the bedside. He is having complaints of increasing shortness of breath. He is doing less on his incentive spirometer. Chest x-ray reveals small right pleural effusion with adjacent atelectasis and/or consolidation. He is currently maintaining O2 saturations in the low 90s on 3 L/m per nasal cannula. Respiratory rate 32. He is afebrile. Blood pre ssure stable. He did have issues with atrial fibrillation with rapid ventricular response last evening. He is on a Cardizem drip at 10 mg per hour. He will be transitioned to Eliquis. On oral amiodarone. 0.9 normal saline at 20 ML's per hour. Currently in sinus rhythm. White count 16.8. Hemoglobin 8.8. Sodium 124. Potassium 5.3. Bicarb 20. Creatinine 1.62. AST 147. ALT 130. He is still having issues with hypoactive bowel and not passing flatus or bowel movement since surgery. He remains on bronchodilators and IV Solu-Medrol. The patient is seen today 07/23/2020 in follow-up in the intensive care unit. Postoperative day #5. He is awake and alert in no acute distress. Currently sitting up in a chair at the bedside. He is feeling stronger today. Less short of breath. Maintaining O2 saturations in the 90s on 3 L/m per nasal cannula. Chest x-ray continues to show a small right pleural effusion with prominent right greater than left basilar atelectasis. He is doing better with his incentive spirometer. White count 15.2. Hemoglobin 81.1. Sodium 124. Potassium 5.3. Creatinine 1.84. AST 136. ALT 193. Albumin 3.4. No IV fluids currently. Is continued on bronchodilators, IV Solu-Medrol, anticoagulated with Eliquis. Still has not had a bowel movement. The patient is seen today 08/09/2020 in follow-up in the intensive care unit. He was extubated again yesterday 08/08/2020. He is currently on 2 L/m per nasal cannula. TPN at 75 ML's per hour. 0.9#10 ML's per hour. Amiodarone at 0.25 mg/m. Insulin drip at 7 units per hour. His x-ray reveals some evidence of fluid volume overload. He is also quite edematous. He'll receive Lasix 40 mg IVP 1 today. He'll also be placed on BiPAP 07/22 on 40% FiO2 as he remains slightly tachypneic and shallow breathing. He is quite weak and debilitated today. He remains on bronchodilators. Eraxis. Daptomycin. Being nourished with lipid and TPN. The patient is seen today 08/11/2020 in follow-up in the intensive care unit. He is currently resting fairly comfortably in bed. Maintaining O2 saturation in the 90s on 2 L/m per nasal cannula. He did wear BiPAP last night at 12/5 and 28% FiO2. He is being nourished with TPN at 75 ML's per hour. He is on insulin at 5.5 units per hour. He remains on amiodarone at 0.25 mg/m. White count 10.0. Hemoglobin 9.2. Sodium 145. Potassium 4.0. Creatinine 1.50. Glucose 120. Chest xray reveals persistent bilateral lung opacities and pleural effusions. No significant change. Remains on DuoNeb inhalations, daptomycin, meropenem. Remains slightly tachycardic. Temperature 99.2 axillary. Needs increased encouragement regarding the use of the incentive spirometer. The patient is seen today 08/12/2020 in follow-up in the intensive care unit. He is awake and alert in no acute distress. He is maintaining O2 saturation in the 90s on 2 L/m per nasal cannula. He has TPN at 75 ML's per hour. 0.9 normal sitting at 10 MLS per hour. Insulin drip at 4 units per hour. Chest x-ray showed a questionable left apical pneumothorax. Computed tomography scan of the chest revealed advanced upper lung emphysema but no convincing pneumothorax. There is moderate bilateral pleural effusions with atelectatic collapse of the entire bilateral lower lobes. Small pericardial effusion. He continues to breathe quite shallow with tachypnea. He remains quite weak and debilitated. Currently afebrile. Hemodynamically stable. White count 10.8. Hemoglobin 9.8. Sodium 143. Potassium 4.1. Creatinine 1.44. Glucose 152. AST 49. ALT 62. Albumin 2.5. He remains on daptomycin, Eraxis, bronchodilators. The patient is seen today 08/13/2020 in follow-up in the intensive care unit. He is currently resting fairly comfortably in bed. He remains awake. He is still very weak and debilitated. Physical therapy is working with the patient. He continues with rapid shallow breathing despite encouraging him to take slower deeper breaths. He is maintaining good O2 saturation in the 90s on 2 L/m per nasal cannula. He has TPN for nourishment at 75 ML's per hour. 0.9#10 mL per hour. Insulin drip at 7 units per hour. Chest x-ray continued showing evidence of COPD and continue small to moderate effusions with adjacent atelectasis/consolidations. He continues to need increased encouragement to utilize the incentive spirometer and cough and deep breathing exercises. White count 11.7. Hemoglobin 10.0. Sodium 144. Potassium 4.2. Creatinine 1.47. Glucose 151. He remains on DuoNeb inhalations, Pulmicort inhalations. Antibiotics in the form of daptomycin. Eraxis. Heparin for DVT prophylaxis. The patient is seen today 08/16/2020 in follow-up in the intensive care unit. Postoperative day #29 of his coronary artery bypass grafting. He is awake and alert in no acute distress. He is currently sitting up in a chair at the bedside. Maintaining O2 saturations up to 99% on 5 L/m per nasal cannula. He remains tachypneic. He has a respiratory pattern of rapid shallow breathing. Chest x-ray reveals COPD with continued small pleural effusions and patchy atelectasis in the bases. He is status post left-sided thoracentesis with 1.4 L of turbid blood tinged fluid removed yesterday. He is status post 5 units of packed red blood cells this admission. Current hemoglobin 10.3. Platelet count 370. White count 13.5. Sodium 142. Potassium 4.7. Creatinine 1.55. He remains on bronchodilators, Mucomyst, Pulmicort. Insulin drip at 3.5 units per hour. Being nourished with Glucerna. TPN's at 35 mL per hour. 0.9 normal sis ine at 10 MLS per hour. The patient is seen today 08/17/2020 in follow-up in the intensive care unit. This is postoperative day #30 of his coronary artery bypass grafting. He is currently resting fairly comfortably in bed. He is on BiPAP 15/5 and 35% FiO2. He is 0.9 normal saline at 50 MLS per hour. He is awake. Chest x-ray continues to show stable bibasilar infiltrates. There is some improvement in the right- sided pleural effusion. White count 11.9. Hemoglobin 10.3. Platelets 285. S odium 136. Potassium 5.4. Creatinine 1.99. Glucose 147. He remains on DuoNeb inhalations, Pulmicort and Perforomist inhalations, Eraxis, Zosyn, daptomycin. Follow-up blood cultures reveal no growth to date. The patient is seen today 08/18/2020 in follow-up in the intensive care unit. Yesterday he developed worsening shortness of breath despite being on BiPAP. He was quite tachypneic and had desaturations. He was subsequently reintubated and placed back on the mechanical ventilator. Assist-control rate of 24, tidal volume 450, FiO2 of 40% and a PEEP of 5. Morning blood gases reveal a P O2 of 168, pCO2 52, pH 7.38. This breath and FiO2 of 60%. Left radial arterial line placed yesterday. He remains on propofol at 40 mcg/kg/m. Heparin drip per weight-based protocol. 0.9 normal sitting at 25 ML's per hour. Norepinephrine at 4 mcg/m. He is being nourished with Nepro 180 MLS every 4 hours with free water flushes. Chest x-ray reveals evidence of congestive heart failure with mild cardiomegaly and small bilateral pleural effusions with mild central vascular congestion and associated basilar atelectasis. He is status post 5 units of packed red blood cells this admission. Current hemoglobin 8.3. White count 9.2. Sodium 145. Potassium 4.3. Creatinine 2.30. Glucose 136. Magnesium 2.6. He remains on bronchodilators, antibiotics in the form of Zosyn and daptomycin. Remains on Eraxis. Ostomy functioning. The patient is seen today 08/19/2020 in follow-up in the intensive care unit. He remains intubated on the mechanical ventilator. Assist-control mode. Rate of 24. Ativan for 50. FiO2 40% and a PEEP of 5. Morning blood gases revealed a pO2 of 87, pCO2 46, pH 7.39. He remains sedated on propofol at 35 mcg/kg/m. Requiring norepinephrine at 1.7 mcg/m. D5W at 20 mL per hour. Heparin drip weight-based protocol. Today's chest x-ray reveals no evidence of pneumothorax. There is a stable right pleural effusion. Endotracheal NG tube locations are good. There is a new patchy airspace disease in the right upper lobe. Some worsening pulmonary edema in the right lower lobe. He remains on DuoNeb inhalations, Pulmicort and Perforomist inhalations. He remains on antibiotics in the form of daptomycin, Eraxis, Zosyn. White count 8.6. Hemoglobin 8.4. D- dimer 1.79. Sodium 142. Potassium 3.8. Creatinine 1.78. Dopplers of the bilateral lower extremities negative for DVT. Plan is for possible tracheostomy tube placement tomorrow with Dr. Cantor. The patient is seen today 08/20/2020 in follow-up in the intensive care unit. He remains intubated on mechanical ventilator. Currently an assist-control mode with a rate of 24, tidal volume 450, FiO2 40% and a PEEP of 5. Morning blood gases reveal a pO2 of 96, pCO2 45, pH 7.40. He remains on norepinephrine at 0.03 mcg/kg/m. Propofol at 35 mcg/kg/m. D5 and half-normal saline at 40 ML's per hour. Tube feeding's are currently on hold. The plan is for tracheostomy tube insertion and possible PEG tube placement today. Chest x-ray shows evidence of mild fluid volume overload and mild cardiomegaly with small bilateral pleural effusions and mild central vascular congestion. Persistent basilar acute infiltrate/atelectasis noted. Back on chronic emphysematous changes. No significant change compared to yesterday. White count 6.7. Hemoglobin 8.4. Sodium 137. Potassium 4.6. Creatinine 1.59. Remains on Zosyn, daptomycin, and Eraxis. Reevaluated today on 08/21/2020, patient remains in the intensive care unit, remains intubated and mechanically ventilated. He is now on assist control rate of 24 tidal volume is 450 FiO2 is 40% and PEEP of 5. ABG showed a pO2 of 103 EC O2 of 50 pH of 7.35. Patient is on multiple drips including D5 4 5 at 50 mL per hour. Propofol at 25 mcg/kg/m, he is off norepinephrine. Patient underwent tracheostomy and PEG tube placement yesterday, and the plan is to start using the PEG tube today for enteral support. I also plan to give the patient trials of weaning with pressure support of 12 and CPAP. Ileostomy seems to be functioning well. Wound VAC seems to be intact in the mid abdomen. PEG tube seems to be intact. Tracheostomy seems to be functional well. Patient had 2 vessel bypass surgery on 07/18/20, he had intraperitoneal hemorrhage requiring exploratory laparotomy and ileostomy on 08/02. Extubated and reintubated 3 times. Presently intubated and on mechanical ventilation via tracheostomy. Again I plan to give the patient weaning trial with pressure support and CPAP today. Chest x-ray showed minimal bibasilar atelectasis, no significant pleural effusion. CBC today is relatively normal. Basic metabolic profile is normal. BUN is 37 creatinine is 1.49. Reevaluated today on 08/22/2020, patient remains in the ICU, intubated and mechanically ventilated. He is presently on assist control rate of 24 tidal volume is 450 FiO2 40% PEEP of 5. ABG showed a pO2 of 109, pCO2 of 44 pH of 7.40. Patient tolerated over 6 hours of pressure support and CPAP mode of mechanical ventilation yesterday. Had to be placed back on assist control mode at night. Patient remains on Precedex at 0.7 mcg/kg per hour. He is on bolus tube feedings receiving Nepro. He is switched now against a pressure support of 12 and CPAP of 5, FiO2 at 40%, and I plan to switch him to trach collar today. This will be done and the patient will be kept on trach collar as long as tolerated. Chest x-ray today is basically about the same. Labs were all reviewed, WBC count is 7.8 hemoglobin is 7.7 and electrolytes are normal BUN is 38 creatinine is 1.36 Patient was reevaluated today on 08/23/2020, remains in the ICU intubated and mechanically ventilated. Patient tolerated almost 10 hours of trach collar yesterday. And he was placed back on assist control mode of mechanical ventilation at night. I plan to place him back on trach collar today. He is presently on assist control rate of 24 tidal volume is 450 FiO2 40% and PEEP of 5 patient is on Precedex at 0.7 mcg/kg/h, he is also on antibiotics in the form of a Eraxis and Zosyn. He has trach collar in place this morning, he did receive 1 dose of Lasix 40 mg IV push. Remains on enteral tube feeding using Nepro 40/40. Chest x-ray showed slight interstitial edema, hence one dose of Lasix was given today. My understanding is the patient may be considered for transfer to alf acute care possibly in the next 24 hours. Patient was reevaluated today on 08/24/2020, patient remains in the ICU, intubated, mechanically ventilated, tracheostomy seems to be intact, patient jesus erated over 9 hours of trach collar yesterday. He is back on trach collar this morning, and he is at 40% FiO2. O2 saturation is 96%. Overnight he was on mechanical ventilation with assist control rate of 24 tidal volume 450 FiO2 40% and PEEP of 5. Chest x-ray continues to show minimal interstitial edema, however considering the slight worsening of the renal status, I would hold diuretics today. Patient was supposed to be transferred to long-term acute care facility, but apparently there is no bed available at this point. Remains on Nepro with water flushes every 8 hours. Patient remains on Precedex at 0.3 mcg/kg per hour. ABG today showed a pO2 of 118 pCO2 of 41 pH of 7.38. Objective - Vital Signs Vital signs: Vital Signs Temp 97.7 F 08/24/20 12:00 Pulse 77 08/24/20 13:00 Resp 29 H 08/24/20 13:00 BP 124/64 08/24/20 13:00 Pulse Ox 98 08/24/20 13:00 Intake & Output 08/23/20 08/24/20 08/24/20 18:59 06:59 18:59 Intake Total 7524.240 3439.037 961 Output Total 2190 1195 855 Balance -595.765 244.037 106 Weight 87.6 kg 87.3 kg Intake: IV 336 36 121 Anidulafungin 100 mg In 100 Sodium Chloride 0.9% 100 ml @ 84 mls/hr IVPB DAILY [facility] Rx#:[id number] Magnesium Sulfate-D5w Pmx 100 1 gm In Dextrose/Water 1 100ml.bag @ 100 mls/hr IVPB Q1H [facility] Rx#: [id number] Piperacillin-Tazobactam 3 200 .375 gm In Sodium Chloride 0.9% 100 ml @ 25 mls/hr IVPB Q8HR [facility] Rx# :[id number] pressure bag 36 36 21 Intake, IV Titration 418.235 323.037 120 Amount Dexmedetomidine/0.9% NaCl 98.75 (Pmx) 400 mcg In Empty Bag 1 bag @ Titrate IV . Q0M [facility] Rx#:[id number] Dexmedetomidine/0.9% NaCl 79.485 83.037 100 (Pmx) 400 mcg In Empty Bag 1 bag @ Titrate IV . Q0M [facility] Rx#:[id number] Sodium Chloride 0.45% 1, 240 240 20 000 ml @ 20 mls/hr IV . Q24H [facility] Rx#:[id number] Tube Feeding 440 480 320 Other 400 600 400 Output: Urine 1540 595 855 Stool 650 600 Other: Voiding Method Indwelling Catheter Indwelling Catheter Indwelling Catheter # Bowel Movements 150 ABP, PAP, CO, CI - Last Documented Arterial Blood Pressure 100/43 Pulmonary Artery Pressure 33/14 Cardiac Output 6.7 Cardiac Index 3.1 - Exam GENERAL EXAM: Revealed 79-year-old white male on trach collar. In no distress. HEAD: Normocephalic/atraumatic. HEENT: PERRLA, EOMI, nonicteric, no neck masses, no JVD, tracheostomy seems to be intact. CHEST: No chest wall deformity. Symmetrical expansion. Midsternal incision is clean dry and intact LUNGS: Equal air entry with scattered crackles in the bases. CVS: Regular rate and rhythm, normal S1 and S2, no gallops, no murmurs, no rubs ABDOMEN: Abdominal incision with wound VAC in place. Ileostomy the right side of the abdomen, seems to be functional, PEG tube is intact. EXTREMITIES: No clubbing, no edema, no cyanosis, 2+ pulses and upper and lower extremities. MUSCULOSKELETAL: Muscle strength and tone normal. SPINE: No scoliosis or deformity SKIN: No rashes CENTRAL NERVOUS SYSTEM: Arousable, follows instructions, no gross deficits generally weak PSYCHIATRIC: Normal mood, blunt affect, normal mental status examination - Labs CBC & Chem 7: 08/24/20 04:40 08/24/20 04:40 Labs: Abnormal Lab Results - Last 24 Hours (Table) 08/23/20 08/23/20 08/23/20 Range/Units 16:01 19:50 23:33 RBC (4.30-5.90) m/uL Hgb (13.0-17.5) gm/dL Hct (39.0-53.0) % MCHC (31.0-37.0) g/dL RDW (11.5-15.5) % Neutrophils # (1.3-7.7) k/uL Lymphocytes # (1.0-4.8) k/uL ABG pO2 (83-108) mmHg ABG Total CO2 (19-24) mmol/L ABG O2 Saturation (94-97) % Chloride (98-107) mmol/L BUN (9-20) mg/dL Creatinine (0.66-1.25) mg/dL Glucose (74-99) mg/dL POC Glucose (mg/dL) 121 H 169 H 131 H (75-99) mg/dL Total Protein (6.3-8.2) g/dL Albumin (3.5-5.0) g/dL 08/24/20 08/24/20 08/24/20 Range/Units 04:40 04:40 04:42 RBC 2.73 L (4.30-5.90) m/uL Hgb 7.8 L (13.0-17.5) gm/dL Hct 26.2 L (39.0-53.0) % MCHC 29.9 L (31.0-37.0) g/dL RDW 16.1 H (11.5-15.5) % Neutrophils # 7.8 H (1.3-7.7) k/uL Lymphocytes # 0.5 L (1.0-4.8) k/uL ABG pO2 (83-108) mmHg ABG Total CO2 (19-24) mmol/L ABG O2 Saturation (94-97) % Chloride 108 H (98-107) mmol/L BUN 47 H (9-20) mg/dL Creatinine 1.53 H (0.66-1.25) mg/dL Glucose 166 H (74-99) mg/dL POC Glucose (mg/dL) 165 H (75-99) mg/dL Total Protein 5.5 L (6.3-8.2) g/dL Albumin 2.5 L (3.5-5.0) g/dL 08/24/20 08/24/20 08/24/20 Range/Units 04:46 08:41 11:32 RBC (4.30-5.90) m/uL Hgb (13.0-17.5) gm/dL Hct (39.0-53.0) % MCHC (31.0-37.0) g/dL RDW (11.5-15.5) % Neutrophils # (1.3-7.7) k/uL Lymphocytes # (1.0-4.8) k/uL ABG pO2 118 H (83-108) mmHg ABG Total CO2 26 H (19-24) mmol/L ABG O2 Saturation 100.0 H (94-97) % Chloride (98-107) mmol/L BUN (9-20) mg/dL Creatinine (0.66-1.25) mg/dL Glucose (74-99) mg/dL POC Glucose (mg/dL) 167 H 166 H (75-99) mg/dL Total Protein (6.3-8.2) g/dL Albumin (3.5-5.0) g/dL Assessment and Plan Assessment: Impression: Status post two-vessel CABG with PABLO to LAD and SVG to PDA on 07/18/2020. Postoperative respiratory failure, unexpected, failure to wean, felt to be mu ltifactorial. Patient had to be reintubated 3 times since his surgery. Postoperative intraperitoneal hemorrhage requiring exploratory laparotomy ileostomy on 08/02, previous surgery on 07/24/20 for ischemic bowel, requiring bowel resection. Status post tracheostomy and PEG tube placement on 08/20/2020. Bilateral pleural effusions requiring left thoracentesis on 08/15/2020. History of hypothyroidism. History of moderate severe COPD, FEV1 of 53%. Acute on chronic kidney disease, patient has a baseline kidney disease stage III. Type 2 diabetes. Postoperative acute blood loss anemia, related to his multiple surgeries. History of coronary artery disease and previous stent placement. Recommendation: Continue daily weaning trials on trach collar. Continue enteral feedings. Continue antibiotics as per infectious disease on the case. Continue bronchodilators. Continue low-dose aspirin and beta blockers. Continue bronchodilators. Continue GI and DVT prophylaxis. Continue Eraxis, Zosyn, as per infectious disease on the case. Continue wound VAC. Transfer to LTAC, once a bed becomes available. Patient will need longer rehab course. Prognosis remains extremely poor and guarded. We will continue to follow. Critical care time is 34 minutes Time with Patient: Greater than 30
[2020-08-24 17:29] LABS: Glucose,Whole Blood 141 mg/dL (75-99)
[2020-08-24] MEDS: SODIUM CHLORIDE 0.45% 1,000 ML IV SCH ×2 (17:32→21:46)
[2020-08-24 20:02] LABS: Glucose,Whole Blood 130 mg/dL (75-99)
--- NOTE | 2020-08-24 22:36 | PN ---
PROGRESS NOTE DATE OF SERVICE: 08/24/2020 REASON FOR FOLLOWUP: Leukocytosis and aspiration pneumonia. INTERVAL HISTORY: Patient is currently afebrile. The patient is hemodynamically stable. He is breathing comfortably on trach collar at the time of my evaluation. The patient has been tolerating his tube feeds and no diarrhea or other changes reported by nursing staff. Patient himself was not able to provide any history. PHYSICAL EXAMINATION: Blood pressure 112/62 with a pulse of 112, temperature 98.2. He is 96% on 40% FiO2. General description is an elderly male lying in bed in no distress. Respiratory system: Unlabored breathing, decreased breath sounds in the base, with no wheeze. Heart S1, S2. Regular rate and rhythm. ABDOMEN: Soft, no tenderness. LABS: Hemoglobin 7.1, white count 9.2, BUN of 47, creatinine 1.53. DIAGNOSTIC IMPRESSION AND PLAN: Patient with elevated white count, multifactorial in this patient who did have a component skin status post infection and aspiration pneumonia. Underlying infection has been adequately treated. The patient is currently being monitored off antibiotic therapy and white count remains to be normal. Continue supportive care. MMODL / IJN: [id number] /
[2020-08-24 23:29] LABS: Glucose,Whole Blood 154 mg/dL (75-99)
[2020-08-25] MEDS: IPRATROPIUM-ALBUTEROL 3 ML NEB INHALATION SCH ×4 (00:40→11:36)
[2020-08-25 03:42] LABS: Glucose,Whole Blood 166 mg/dL (75-99)
[2020-08-25] MEDS: INSULIN ASPART (NovoLOG) 100 UNIT/ML VIAL SQ SCH ×3 (03:44→13:34)
[2020-08-25 04:40] LABS: ABG Base Excess 1.5 mmol/L; ABG HCO3 26 mmol/L (21-25); ABG Oxygen Saturation 99.2 % (94-97); ABG PCO2 41 mmHg (35-45); ABG PH 7.41 (7.35-7.45); ABG PO2 102 mmHg (83-108); ABG TCO2 27 mmol/L (19-24); Allen Test Performed? Yes
[2020-08-25 06:33] LABS: HCT 27.2 % (39.0-53.0); HGB 8.7 gm/dL (13.0-17.5); Hypochromasia Moderate; MCH 29.8 pg (25.0-35.0); Mean Platelet Volume 7.9; Platelet Count 334 k/uL (150-450); RBC 2.92 m/uL (4.30-5.90); RDW 15.9 % (11.5-15.5); WBC 14.1 k/uL (3.8-10.6)
[2020-08-25 06:43] LABS: Calcium 9.8 mg/dL (8.4-10.2); Magnesium 1.9 mg/dL (1.6-2.3); Potassium 3.6 mmol/L (3.5-5.1)
[2020-08-25] MEDS: MAGNESIUM SULFATE-D5W PMX 1 GM in DEXTROSE/WATER 1 100ML.BAG IVPB SCH ×2 (07:00→08:22)
[2020-08-25] MEDS ORDERED: POTASSIUM BICARBONATE/CIT AC 20 MEQ TABLET.EFF NG-TUBE SCH (07:00)
[2020-08-25] MEDS: BUDESONIDE 1 MG/2 ML NEBU INHALATION SCH (07:25)
[2020-08-25] MEDS: FORMOTEROL FUMARATE 20 MCG/2 ML NEBU INHALATION SCH (07:25)
[2020-08-25 07:54] LABS: Glucose,Whole Blood 169 mg/dL (75-99)
--- NOTE | 2020-08-25 08:19 | XR ---
EXAMINATION TYPE: XR chest 1V portable DATE OF EXAM: 08/25/2020 COMPARISON: 08/24/2020 INDICATION: Respiratory failure TECHNIQUE: Single frontal view of the chest is obtained. FINDINGS: The heart size is normal. The pulmonary vasculature is normal. Bibasilar infiltrates are present. Right-sided PICC line is present to the superior vena cava region Tracheostomy tube is in the midline IMPRESSION: 1. Bibasilar infiltrates increasing from comparison. 2 tracheostomy tube and PICC line stable in posi tion
[2020-08-25] MEDS: CHLORHEXIDINE GLUCONATE 15 ML CUP MUCOUS MEM SCH (08:22)
[2020-08-25] MEDS: LEVOTHYROXINE IVP 100 MCG/5 ML VIAL IV SCH (08:23)
[2020-08-25] MEDS: QUEtiapine 25 MG TAB PO SCH (08:23)
[2020-08-25] MEDS: METOPROLOL TARTRATE 25 MG TAB PO SCH ×2 (08:23→08:30)
[2020-08-25] MEDS: ASPIRIN 81 MG PO SCH (08:23)
[2020-08-25] MEDS: APIXABAN 5 MG TAB PO SCH (08:23)
[2020-08-25] MEDS: AMIODARONE 200 MG TAB PO SCH (08:23)
[2020-08-25] MEDS: ATORVASTATIN 40 MG TAB PO SCH (08:23)
[2020-08-25] MEDS: PANTOPRAZOLE 40 MG/10 ML VIAL IVP SCH (08:24)
[2020-08-25] MEDS ORDERED: METOPROLOL TARTRATE 25 MG TAB PO ONE (08:30)
--- NOTE | 2020-08-25 09:18 | PN ---
PROGRESS NOTE Mr. Tinoco is a 80-year-old male who underwent coronary artery bypass grafting. The postoperative course was complicated by abdominal viscus rupture requiring surgical intervention and subsequent bleeding, repeat intubation and status post tracheostomy. He had paroxysmal atrial fibrillation. He was supposed to be transferred yesterday to LTAC, but that has been rescheduled for today. He went back in atrial fibrillation last night. His ventricular response was under better control, faster today, but he did not take medication. His blood pressure is . His urine output has been stable. He is tolerating tube feeding. Hemodynamically otherwise he is stable. He has been anticoagulated. He continues to be at this time on amiodarone 200 mg daily, Eliquis 5 mg twice a day, aspirin once a day, Lipitor 40 mg daily, metoprolol tartrate 25 mg 3 times a day. PHYSICAL EXAMINATION: Blood pressure 132/60 with the heart rate in the 100s. HEAD: Normocephalic. Tracheostomy in place. LUNGS: Decreased air exchange. No wheezes. HEART: Irregular, irregular. S1, S2. No S3. No rub. ABDOMEN: Soft. PEG tube in place. Dressing in place. EXTREMITIES: No edema. LAB DATA: Lab data revealed a hemoglobin of 8.7, BUN and creatinine 49 and 1.48, which has been stable. IMPRESSION: 1. Status post coronary artery bypass grafting. 2. Postoperative abdominal viscus perforation requiring surgical intervention. 3. Respiratory failure with re-intubation. 4. Paroxysmal atrial fibrillation. 5. Chronic kidney disease. 6. Diabetes mellitus. 7. Anemia. RECOMMENDATION: Will continue present therapy. I will increase the dose of his beta apolinar to 50 mg twice a day. Continue the rest of the regimen. Hopefully he will be able to be transferred to LTAC today to proceed with long-term weaning and extubation. The patient has been tolerating his collar oxygen for about 12 hours a day and has been rested during the night. MMODL / IJN: [id number] /
[2020-08-25 09:24] VITALS: TEMP 99.3
--- NOTE | 2020-08-25 10:07 | P.PN ---
Subjective Patient is seen in follow-up for acute kidney injury. Renal function is stable. Off diuretics. Status post trach and PEG. Receiving tube feeding at goal. Hemodynamically stable. No changes overnight. Potentially going to LTAC soon. Vital signs are stable. HEENT: Head exam is unremarkable. Tracheostomy noted. LUNGS: Breath sounds decreased. HEART: Rate and Rhythm are regular. ABDOMEN: Soft, nondistended. Ileostomy and PEG tube noted. EXTREMITITES: Trace edema. Objective - Vital Signs Vital signs: Vital Signs Temp 99.3 F 08/25/20 09:00 Pulse 121 H 08/25/20 09:00 Resp 32 H 08/25/20 09:00 BP 107/84 08/25/20 08:00 Pulse Ox 93 L 08/25/20 09:00 Intake & Output 08/24/20 08/25/20 08/25/20 18:59 06:59 18:59 Intake Total 1446 1331 234 Output Total 1580 1230 810 Balance -134 101 -576 Weight 87.5 kg Intake: IV 136 36 9 Magnesium Sulfate-D5w Pmx 100 1 gm In Dextrose/Water 1 100ml.bag @ 100 mls/hr IVPB Q1H [facility] Rx#: [id number] pressure bag 36 36 9 Intake, IV Titration 120 Amount Dexmedetomidine/0.9% NaCl 100 (Pmx) 400 mcg In Empty Bag 1 bag @ Titrate IV . Q0M [facility] Rx#:[id number] Sodium Chloride 0.45% 1, 20 000 ml @ 20 mls/hr IV . Q24H [facility] Rx#:[id number] Oral 800 Tube Feeding 590 495 135 Other 600 90 Output: Urine 1580 1030 210 Stool 200 600 Other: Voiding Method Indwelling Catheter Indwelling Catheter Indwelling Catheter ABP, PAP, CO, CI - Last Documented Arterial Blood Pressure 122/58 Pulmonary Artery Pressure 33/14 Cardiac Output 6.7 Cardiac Index 3.1 - Labs CBC & Chem 7: 08/25/20 05:30 08/25/20 05:30 Labs: Abnormal Lab Results - Last 24 Hours (Table) 08/24/20 08/24/20 08/24/20 Range/Units 11:32 17:28 20:00 WBC (3.8-10.6) k/uL RBC (4.30-5.90) m/uL Hgb (13.0-17.5) gm/dL Hct (39.0-53.0) % RDW (11.5-15.5) % ABG HCO3 (21-25) mmol/L ABG Total CO2 (19-24) mmol/L ABG O2 Saturation (94-97) % Sodium (137-145) mmol/L BUN (9-20) mg/dL Creatinine (0.66-1.25) mg/dL Glucose (74-99) mg/dL POC Glucose (mg/dL) 166 H 141 H 130 H (75-99) mg/dL 08/24/20 08/25/20 08/25/20 Range/Units 23:26 03:39 04:35 WBC (3.8-10.6) k/uL RBC (4.30-5.90) m/uL Hgb (13.0-17.5) gm/dL Hct (39.0-53.0) % RDW (11.5-15.5) % ABG HCO3 26 H (21-25) mmol/L ABG Total CO2 27 H (19-24) mmol/L ABG O2 Saturation 99.2 H (94-97) % Sodium (137-145) mmol/L BUN (9-20) mg/dL Creatinine (0.66-1.25) mg/dL Glucose (74-99) mg/dL POC Glucose (mg/dL) 154 H 166 H (75-99) mg/dL 08/25/20 08/25/20 08/25/20 Range/Units 05:30 05:30 07:52 WBC 14.1 H (3.8-10.6) k/uL RBC 2.92 L (4.30-5.90) m/uL Hgb 8.7 L (13.0-17.5) gm/dL Hct 27.2 L (39.0-53.0) % RDW 15.9 H (11.5-15.5) % ABG HCO3 (21-25) mmol/L ABG Total CO2 (19-24) mmol/L ABG O2 Saturation (94-97) % Sodium 136 L (137-145) mmol/L BUN 49 H (9-20) mg/dL Creatinine 1.48 H (0.66-1.25) mg/dL Glucose 155 H (74-99) mg/dL POC Glucose (mg/dL) 169 H (75-99) mg/dL Assessment and Plan Plan: Assessment: 1. Acute kidney injury secondary to hemodynamic ATN. No hydronephrosis noted on computed tomography scan. No proteinuria on UA. Nonoliguric. Renal function worsened from diuretics. Creatinine stable at 1.48 today. 2. Chronic kidney disease stage III with baseline creatinine in the range of 1.2-1.5 secondary to nephrosclerosis. UA from June 2020 was benign. 3. Coronary artery disease status post 2 vessel CABG on July 18. 4. Hypervolemic hyponatremia. Resolved. s/p diuresis. Became slightly hypernatremic and is now maintained on free water flushes with his tube feeding. 5. Bowel ischemia status post exploratory laparotomy and resection. Underwent another exploratory laparotomy on August 02 with ileostomy. 6. Diabetes mellitus. 7. Volume overload. Improved with diuresis. 8. A. fib maintained on Lopressor. 9. Anemia of chronic kidney disease and post-cabg. Status post blood transfusion this admission. Maintained on Aranesp. Plan: Maintain tube feeding. Stop free water flushes. Avoid nephrotoxins. Continue to monitor renal function and urine output. Lasix 40 mg orally every other day upon d/c. [facility] - [facility] bed.
--- NOTE | 2020-08-25 10:40 | P.PN ---
Subjective Progress Note Date: 08/25/20 Principal diagnosis: Symptomatic triple-vessel coronary artery disease, mild left ventricular dysfunction. Past medical history significant for hypertension, hyperlipidemia, chronic obstructive pulmonary disease with preoperative FEV1 of 53% of predicted value, coronary artery disease with previous stenting to his right coronary artery in 2002, hypothyroid status post partial thyroidectomy, previous tobacco dependence quit smoking 20 years ago, type 2 diabetes mellitus with a preoperative hemoglobin A1c of 5.2%, and chronic kidney disease stage III with a baseline creatinine of 1.4-1.5, family history of premature coronary artery disease with a brother having a CABG at less than 50 years of age. POD #38 double coronary artery bypass grafting using the left internal mammary artery to left anterior descending coronary artery, a reverse greater saphenous vein graft from the aorta to the posterior descending coronary artery. Exclusion of the left atrial appendage using a 35 mm Atriclip, endoscopic harvesting of the right greater saphenous vein, graft flow measurement using the [employer] system, intraoperative transesophageal echocardiogram and epi-aortic scanning. Postoperative acute blood loss anemia, an expected outcome from hemodilution and cardiopulmonary bypass. Postoperative paroxysmal atrial fibrillation, unexpected. Postoperative pneumoperitoneum, unexpected. Acute on chronic kidney disease secondary to acute tubular necrosis. Pneumatosis of the small bowel. POD #32 ischemic bowel, small bowel resection. Prolonged mechanical ventilation, unexpected. Acute hypoxic respiratory failure requiring reintubation, unexpected. Postoperative hypotension requiring initiation of norepinephrine drip, unexpected, resolved. Acute abdomen, intraperitoneal hemorrhage. Postoperative day #23 exploratory laparotomy, washout of peritoneal cavity, ileostomy with small bowel resection. POD #5 tracheostomy placement, EGD with PEG tube placement. The patient was seen in follow-up today 08/25/2020 at his bedside in the intensive care unit. The patient is currently laying in bed with his head elevated, he is awake and alert. Moving all 4 extremities appropriately with verbal stimuli. He is shaking his head yes and no appropriately to questions. Oxygen saturation are 99% on mechanical ventilator support. Current mechanical ventilator settings are assist control 24, TV 450, FiO2 40% and PEEP of 5. Right lower quadrant ileostomy remains with light brown loose with 200 mL output in the last 8 hours. Left upper quadrant abdominal PEG tube with tube feedings in place, Nepro is infusing at 45 mL per hour which is goal rate. Bedside telemetry showing atrial fibrillation heart rate 125 BPM. Midline abdominal incision with wound VAC in place with no air leak present. Precedex drip was discontinued yesterday and he was started on Seroquel 25 mg per PEG tube twice a day. He remains hemodynamically stable and is currently on no inotropic or pressor support. Awaiting for bed at [facility]. Objective - Vital Signs Vital signs: Vital Signs Temp 99.3 F 08/25/20 09:00 Pulse 121 H 08/25/20 09:00 Resp 32 H 08/25/20 09:00 BP 107/84 08/25/20 08:00 Pulse Ox 93 L 08/25/20 09:00 Intake & Output 08/24/20 08/25/20 08/25/20 18:59 06:59 18:59 Intake Total 1446 1331 234 Output Total 1580 1230 210 Balance -134 101 24 Weight 87.5 kg Intake: IV 136 36 9 Magnesium Sulfate-D5w Pmx 100 1 gm In Dextrose/Water 1 100ml.bag @ 100 mls/hr IVPB Q1H [facility] Rx#: [id number] pressure bag 36 36 9 Intake, IV Titration 120 Amount Dexmedetomidine/0.9% NaCl 100 (Pmx) 400 mcg In Empty Bag 1 bag @ Titrate IV . Q0M [facility] Rx#:[id number] Sodium Chloride 0.45% 1, 20 000 ml @ 20 mls/hr IV . Q24H [facility] Rx#:[id number] Oral 800 Tube Feeding 590 495 135 Other 600 90 Output: Urine 1580 1030 210 Stool 200 Other: Voiding Method Indwelling Catheter Indwelling Catheter ABP, PAP, CO, CI - Last Documented Arterial Blood Pressure 122/58 Pulmonary Artery Pressure 33/14 Cardiac Output 6.7 Cardiac Index 3.1 - Constitutional General appearance: Present: average body habitus, cooperative, no acute distress - EENT Eyes: Present: normal appearance. Absent: scleral icterus ENT: Present: hearing grossly normal - Neck Details: Tracheostomy midline and in place. Neck is supple. No JVD. - Respiratory Details: Lung sounds essentially clear throughout, diminished to his bilateral bases with few scattered crackles. Respirations are symmetrical and nonlabored with mechanical ventilator support. Current mechanical ventilator settings are as follows, assist-control 24, TV 450, FiO2 40%, PEEP 5. Oxygen saturations 99% on mechanical ventilator settings. - Cardiovascular Details: Irregular rhythm and tachycardic rate. S1 and S2 present, negative for S3, gal lop or murmur. Sternum is stable. Bedside telemetry showing atrial fibrillation heart rate 125 BPM. No edema present. Heart hugger is in place. Knee-high ALPHONSO hose and sequential compression devices in place was bilateral lower extremities. Right brachial PICC line in place. - Gastrointestinal Gastrointestinal Comment(s): Abdomen is soft, nontender and nondistended. Active bowel sounds present. Right lower quadrant abdominal ileostomy present, stoma is pink, liquid light brown stool with 200 mL output in the last 8 hours. Left upper quadrant abd ominal PEG tube in place with tube feeding infusing at goal rate of 45 mL per hour of Nepro. - Genitourinary Genitourinary Comment(s): Villafana catheter for accurate I&O. Draining clear yellow urine. 520 mL output in the last 8 hours. - Integumentary Integumentary Comment(s): Skin is warm and dry. No clubbing or cyanosis is present. Midline sternal incision is clean, dry and approximated. No drainage or redness is present. Right lower extremity EVH sites are clean, dry and approximated. No drainage or redness is present. Midline abdominal incision with wound VAC in place. No air leak is present. Stage II wound present to his coccyx. - Neurologic Neurologic: Present: CNII-XII intact - Musculoskeletal Musculoskeletal: Present: generalized weakness, strength equal bilaterally - Psychiatric Psychiatric: Present: A&O x's 3, appropriate affect - Allied health notes Allied health notes reviewed: nursing - Labs CBC & Chem 7: 08/25/20 05:30 08/25/20 05:30 Labs: Abnormal Lab Results - Last 24 Hours (Table) 08/24/20 08/24/20 08/24/20 Range/Units 11:32 17:28 20:00 WBC (3.8-10.6) k/uL RBC (4.30-5.90) m/uL Hgb (13.0-17.5) gm/dL Hct (39.0-53.0) % RDW (11.5-15.5) % ABG HCO3 (21-25) mmol/L ABG Total CO2 (19-24) mmol/L ABG O2 Saturation (94-97) % Sodium (137-145) mmol/L BUN (9-20) mg/dL Creatinine (0.66-1.25) mg/dL Glucose (74-99) mg/dL POC Glucose (mg/dL) 166 H 141 H 130 H (75-99) mg/dL 08/24/20 08/25/20 08/25/20 Range/Units 23:26 03:39 04:35 WBC (3.8-10.6) k/uL RBC (4.30-5.90) m/uL Hgb (13.0-17.5) gm/dL Hct (39.0-53.0) % RDW (11.5-15.5) % ABG HCO3 26 H (21-25) mmol/L ABG Total CO2 27 H (19-24) mmol/L ABG O2 Saturation 99.2 H (94-97) % Sodium (137-145) mmol/L BUN (9-20) mg/dL Creatinine (0.66-1.25) mg/dL Glucose (74-99) mg/dL POC Glucose (mg/dL) 154 H 166 H (75-99) mg/dL 08/25/20 08/25/20 08/25/20 Range/Units 05:30 05:30 07:52 WBC 14.1 H (3.8-10.6) k/uL RBC 2.92 L (4.30-5.90) m/uL Hgb 8.7 L (13.0-17.5) gm/dL Hct 27.2 L (39.0-53.0) % RDW 15.9 H (11.5-15.5) % ABG HCO3 (21-25) mmol/L ABG Total CO2 (19-24) mmol/L ABG O2 Saturation (94-97) % Sodium 136 L (137-145) mmol/L BUN 49 H (9-20) mg/dL Creatinine 1.48 H (0.66-1.25) mg/dL Glucose 155 H (74-99) mg/dL POC Glucose (mg/dL) 169 H (75-99) mg/dL - Imaging and Cardiology Chest x-ray: report reviewed, image reviewed Assessment and Plan Assessment: 1. Heavily calcified symptomatic triple-vessel coronary artery disease, status post 2 vessel coronary artery bypass grafting surgery 2. History of coronary artery disease with stent placement to his right coronary artery in 2002 3. Mild left ventricular dysfunction 4. History of hypertension 5. History of hyperlipidemia 6. Hypothyroid status post partial thyroidectomy 7. Chronic obstructive pulmonary disease with preoperative FEV1 53% of predicted value 8. Remote history of tobacco dependence quit smoking 20 years ago 9. Acute on chronic kidney disease stage III with a baseline creatinine of 1.4- 1.5 10. Diabetes mellitus type 2 with a preoperative hemoglobin A1c 5.2% 11. Postoperative acute blood loss anemia, expected 12. Postoperative paroxysmal atrial fibrillation, unexpected 13. Remote history of pneumonia 14. Postoperative paroxysmal atrial fibrillation, unexpected, status post exclusion of the left atrial appendage 15. Pneumoperitoneum, unexpected 16. Pneumatosis of the small bowel, ischemic bowel, status post resection of the small bowel 17. Positive sputum culture for pseudomonas fluorescens 18. Postoperative prolonged mechanical ventilation 19. Acute hypoxic respiratory failure requiring reintubation, unexpected 20. Postoperative hypotension requiring initiation of norepinephrine drip, unexpected 21. Acute abdomen, intraperitoneal hemorrhage, S/P exploratory laparotomy, washout of peritoneal cavity, ileostomy with small bowel resection 22. Postoperative thrombocytopenia, unexpected 23. Generalized debility and overall muscle weakness secondary to above 24. Tube feedings for nutritional support, status post PEG tube placement Plan: 1. Continue low dose aspirin, and beta apolinar. We will increase metoprolol tartrate as tolerated, hold for systolic blood pressure less than 100 mmHg and heart rate less than 60. 2. Continue amiodarone 200 mg per NG tube twice a day for atrial fibrillation prophylaxis. Continue Eliquis for anticoagulation. 3. Mechanical ventilator and weaning trial management per pulmonary critical care service. Bronchodilator management per pulmonary for/critical care [facility]. 4. Continue to monitor daily labs and chest x-rays. Replace electrolytes per protocol. 5. Continue GI/DVT prophylaxis. 6. Pain control with current medication regimen. 7. Insulin management per primary care service. 8. Continue tube feedings Nepro at 45 mL per hour per PEG tube. Continue to check for residuals. 9. Nephrology following. Avoid nephrotoxic agents. No diuresis today per nephrology recommendations. 10. Strict accurate intake and output, daily weights. 11. Antibiotics have been discontinued per infectious disease recommendations. Continue to monitor white count and to monitor if the patient becomes febrile. 12. Continue Villafana catheter for accurate I's and O's. Replace Villafana catheter today. 13. Continue wound VAC to midline abdominal incision. Dressing changes Friday and Friday. 14. Discharge planning is in place. He is awaiting a bed at LTAC and is waiting for bed availability per social studies department chair. 15. Increase activity as tolerated. Physical, occupational therapy and cardiac rehabilitation following. 16. More recommendations to follow based on patient's clinical course. Time with Patient: Greater than 30
--- NOTE | 2020-08-25 12:14 | P.PN ---
Subjective Progress Note Date: 08/25/20 CHIEF COMPLAINT: Status post CABG 2 vessels HISTORY OF PRESENT ILLNESS: Patient remains in the ICU. Lying in bed. He is status post peg tube and tracheostomy placement. Patient is tolerating his tube feedings. Patient is tolerating tube feedings at 45 mL per hour. Patient is currently on trach collar. Patient is having stool through his ileostomy. Continues to have wound VAC in place for his abdominal incision. He is off of pressors. Afebrile WBC 14.1 Hgb 8.7 [facility] PHYSICAL EXAM: VITAL SIGNS: Reviewed. GENERAL: Well-developed in no acute distress. HEENT: No sclera icterus. Extraocular movements grossly intact. Moist buccal mucosa. Head is atraumatic, normocephalic. ABDOMEN: Soft. Abdominal incision with wound VAC in place. Ileostomy right side of abdomen with brown liquidy stool. PEG tube site clean dry and intact NEUROLOGIC: Is awake and able to follow simple commands ASSESSMENT: 1. Intraperitoneal hemorrhage status post exploratory laparotomy, washout of peritoneal cavity and ileostomy on 08/02/2020 2. Ischemic small bowel with evidence of pneumatosis status post small bowel resection on 07/24/2020 3. Acute hypoxic respiratory failure requiring mechanical ventilation 4. symptomatic triple-vessel coronary artery disease status post 2 vessel coronary bypass grafting surgery 5. Diabetes mellitus type 2 PLAN: -Continued tube feedings -Continue wound VAC -Continue antibiotics per ID -Continue supportive care -[facility] -DVT prophylaxis subcu Heparin and GI prophylaxis Protonix Physician Bilingual Legal Assistant note has been reviewed by physician. Signing provider agrees with the documented findings, assessment, and plan of care. Objective - Vital Signs Vital signs: Vital Signs Temp 99.3 F 08/25/20 09:00 Pulse 92 08/25/20 11:54 Resp 32 H 08/25/20 11:00 BP 143/84 08/25/20 11:00 Pulse Ox 100 08/25/20 11:00 Intake & Output 08/24/20 08/25/20 08/25/20 18:59 06:59 18:59 Intake Total 1446 1331 697 Output Total 1580 1230 900 Balance -134 101 -203 Weight 87.5 kg Intake: IV 136 36 12 Magnesium Sulfate-D5w Pmx 100 1 gm In Dextrose/Water 1 100ml.bag @ 100 mls/hr IVPB Q1H [facility] Rx#: [id number] pressure bag 36 36 12 Intake, IV Titration 120 200 Amount Dexmedetomidine/0.9% NaCl 100 (Pmx) 400 mcg In Empty Bag 1 bag @ Titrate IV . Q0M WADE Rx#:[id number] Magnesium Sulfate-D5w Pmx 200 1 gm In Dextrose/Water 1 100ml.bag @ 100 mls/hr IVPB Q1H WADE Rx#: [id number] Sodium Chloride 0.45% 1, 20 000 ml @ 20 mls/hr IV . Q24H WADE Rx#:[id number] Oral 800 Tube Feeding 590 495 225 Other 600 260 Output: Urine 1580 1030 300 Stool 200 600 Other: Voiding Method Indwelling Catheter Indwelling Catheter Indwelling Catheter ABP, PAP, CO, CI - Last Documented Arterial Blood Pressure 148/69 Pulmonary Artery Pressure 33/14 Cardiac Output 6.7 Cardiac Index 3.1 - Labs CBC & Chem 7: 08/25/20 05:30 08/25/20 10:10 Labs: Abnormal Lab Results - Last 24 Hours (Table) 08/24/20 08/24/20 08/24/20 Range/Units 17:28 20:00 23:26 WBC (3.8-10.6) k/uL RBC (4.30-5.90) m/uL Hgb (13.0-17.5) gm/dL Hct (39.0-53.0) % RDW (11.5-15.5) % ABG HCO3 (21-25) mmol/L ABG Total CO2 (19-24) mmol/L ABG O2 Saturation (94-97) % Sodium (137-145) mmol/L BUN (9-20) mg/dL Creatinine (0.66-1.25) mg/dL Glucose (74-99) mg/dL POC Glucose (mg/dL) 141 H 130 H 154 H (75-99) mg/dL 08/25/20 08/25/20 08/25/20 Range/Units 03:39 04:35 05:30 WBC (3.8-10.6) k/uL RBC (4.30-5.90) m/uL Hgb (13.0-17.5) gm/dL Hct (39.0-53.0) % RDW (11.5-15.5) % ABG HCO3 26 H (21-25) mmol/L ABG Total CO2 27 H (19-24) mmol/L ABG O2 Saturation 99.2 H (94-97) % Sodium 136 L (137-145) mmol/L BUN 49 H (9-20) mg/dL Creatinine 1.48 H (0.66-1.25) mg/dL Glucose 155 H (74-99) mg/dL POC Glucose (mg/dL) 166 H (75-99) mg/dL 08/25/20 08/25/20 Range/Units 05:30 07:52 WBC 14.1 H (3.8-10.6) k/uL RBC 2.92 L (4.30-5.90) m/uL Hgb 8.7 L (13.0-17.5) gm/dL Hct 27.2 L (39.0-53.0) % RDW 15.9 H (11.5-15.5) % ABG HCO3 (21-25) mmol/L ABG Total CO2 (19-24) mmol/L ABG O2 Saturation (94-97) % Sodium (137-145) mmol/L BUN (9-20) mg/dL Creatinine (0.66-1.25) mg/dL Glucose (74-99) mg/dL POC Glucose (mg/dL) 169 H (75-99) mg/dL
[2020-08-25 12:16] LABS: Glucose,Whole Blood 144 mg/dL (75-99)
--- NOTE | 2020-08-25 12:25 | P.DS ---
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 Consult: post cardiac surgery Do you want consulting provider notified?: Yes 07/19/20 07:44 Consult Physician Urgent Consulting Provider: Anjel Dempsey Consult Reason/Comments: Free air in the abdomen Do you want consulting provider notified?: Yes 07/22/20 13:43 Consult Physician Routine Consulting Provider: Ken Perez Consult Reason/Comments: renal failure Do you want consulting provider notified?: Yes 07/24/20 09:31 Consult Physician Routine Consulting Provider: Sean Lan Consult Reason/Comments: IPR Do you want consulting provider notified?: Yes 08/02/20 19:26 Consult Physician Routine Consulting Provider: Tay Frederick Consult Reason/Comments: elevated WBC Do you want consulting provider notified?: Yes Primary care physician: Arianne Ferrell MD Hospital Course: FINAL DIAGNOSIS: 1. Symptomatic triple vessel coronary artery disease 2. Mild left ventricular dysfunction 3. Previous history of stenting to the right coronary artery in 2002 4. History of hypertension 5. Hyperlipidemia 6. Hypothyroid status post partial thyroidectomy 7. Previous tobacco dependence with bullous emphysema 8. Moderate chronic obstructive pulmonary disease with preoperative FEV1 56% of predicted value 9. Remote history of pneumonia 10. Type 2 diabetes with preoperative hemoglobin A1c 5.2% 11. Chronic kidney disease stage III with baseline creatinine 1.4-1.5 12. Family history of premature coronary artery disease 13. Postoperative acute blood loss anemia, expected 14. Postoperative paroxysmal atrial fibrillation, unexpected 15. Pneumoperitoneum, unexpected 16. Acute on chronic kidney disease with hyponatremia, hyperkalemia 17. Pneumatosis of the small bowel 18. Sputum culture positive for pseudomonas in [place] with repeat culture negative 19. Acute hypoxic respiratory failure with reintubation, prolonged mechanical ventilation 20. Left-sided pleural effusion 21. Acute abdomen, intraperitoneal hemorrhage 22. Generalized debility PRINCIPAL PROCEDURE: 1. Double coronary artery bypass grafting using the left internal mammary artery to the left anterior descending coronary artery, reverse greater saphenous vein graft from the aorta to the posterior descending coronary artery, 07/18/2020 2. Exclusion of the left atrial appendage using a 35 mm AtriClip 3. Endoscopic harvesting of the right greater saphenous vein from the groin to above the ankle level 4. Graft flow measurements using the Medistim system 5. Intraoperative transesophageal echocardiogram and epi-aortic scanning 6. Small bowel resection, 07/24/2020 7. Exploratory laparotomy, washout of peritoneal cavity, ileostomy with small bowel resection, 08/02/2020 8. Left sided thoracentesis with removal of 1.4 L pleural fluid, 08/15/2020 9. Tracheostomy and EGD with PEG tube placement, 08/20/2020 HISTORY OF PRESENT ILLNESS: This is a formerly active 80-year-old who follows on an outpatient basis with Dr. Ferrell for primary care, Dr. Mandujano for cardiology, and Dr. Cui for pulmonology. The patient had been experiencing chest pain as well as mild shortness of breath both with activity and at rest. He underwent stress testing which demonstrated evidence of inducible ischemia involving the inferior lateral wall and was recommended to undergo heart catheterization which demonstrated 2 areas of stenosis in the LAD ranging from 70-80% along with 80% proximal stenosis of the second diagonal branch, proximal left circumflex stenosis 80-90%, distal RCA stenosis 30% at the bifurcation of the PDA and PLB with 99% complex lesion involving the PLB. Due to these findings consultation was placed to Dr. Cantor from cardiothoracic surgery. He was recommended to undergo elective coronary artery bypass surgery. The usual perioperative course was discussed in detail with the patient and his family, all risks and benefits were explained, all questions were answered, and consent was obtained to proceed with surgery. The patient was discharged to home on maximal medical therapy to return as an outpatient for surgery after obtaining pulmonary clearance. HOSPITAL COURSE: The patient was brought to the hospital on 07/18/2020, taken to the preoperative area, prepared in the usual fashion, and subsequently taken to the operating room where Dr. Cantor performed double vessel CABG. Upon completion of surgery the patient was transferred to the cardiovascular intensive care unit where he was recovered and monitored hemodynamically. Unfortunately he had a gordon postoperative course with multiple complications, returned to the operating room for small bowel resection, ileostomy creation, tracheostomy and PEG tube placement. He was extubated and re-intubated more than once, all lines, tubes, and drips were discontinued when appropriate, and the patient was eventually hemodynamically stable and comfortable with trach collar during the day and mechanical ventilation at night. His ventilator was managed by pulmonology, he continued to work with physical and occupational therapy, he was tolerating tube feedings, his pain was controlled without narcotics, and he was ready to be discharged to [facility] long-term acute care on , however we were waiting for insurance authorization and bed availability. Family was updated throughout the entire hospital stay, and did give consent for transfer to LTAC. Full discharge instructions to be sent to [facility] with follow-up appointments to be made with the patient's physicians upon discharge from [facility]. COMPLICATIONS: The patient experienced multiple postoperative complications as listed above. Patient Condition at Discharge: Stable Plan - Discharge Summary Discharge Rx Participant: Yes New Discharge Prescriptions: New Darbepoetin Alex [Aranesp] 40 mcg SQ Q7D syringe Aspirin 81 mg PO DAILY chew Amiodarone [Cordarone] 200 mg PO DAILY tab Ipratropium-Albuterol Nebulize [Duoneb 0.5 mg-3 mg/3 ml Soln] 3 ml INHALATION RT-Q4H ml Ipratropium-Albuterol Nebulize [Duoneb 0.5 mg-3 mg/3 ml Soln] 3 ml INHALATION RT-Q2H PRN ml PRN Reason: Shortness Of Breath Or Wheezing Apixaban [Eliquis] 5 mg PO BID tab Furosemide [Lasix] 40 mg PO DIRECTED #30 tablet INSULIN ASPART (NovoLOG) [NovoLOG (formulary)] 0 unit SQ Q4HR vial Formoterol Fumarate [Perforomist] 20 mcg INHALATION RT-BID nebu Chlorhexidine Gluconate [Peridex] 15 ml MUCOUS MEM BID ml Pantoprazole Sodium [Protonix] 40 mg IVP BID #60 dose Budesonide [Pulmicort] 1 mg INHALATION RT-BID ml QUEtiapine [SEROquel] 25 mg PO BID tab Levothyroxine Sodium [Synthroid] 25 mcg IVP DAILY #30 dose Acetaminophen Oral Susp (Peds) [Tylenol Oral Susp For Peds (Grape)] 650 mg NG-TUBE Q6H PRN bottle PRN Reason: Fever And/ Or Pain Metoprolol Tartrate [Lopressor] 50 mg PO BID tab Continue Atorvastatin [Lipitor] 40 mg PO HS Discontinued Aspirin [Adult Low Dose Aspirin EC] 81 mg PO DAILY Multivitamin [Men's Multi-Vitamin] 1 tab PO W/LUNCH Calcium Carbonate/Vitamin D3 [Calcium 600 + Vit D 400 Tablet] 1 tab PO W/LUNCH Metoprolol Succinate (ER) [Toprol Xl] 100 mg PO DAILY Losartan Potassium [Cozaar] 100 mg PO DAILY Levothyroxine Sodium [Synthroid] 50 mcg PO DAILY metFORMIN HCL [Glucophage] 500 mg PO PC-SUPPER Fluticasone/Salmeterol [Advair 500-50 Diskus] 1 puff INHALATION RT-BID Tiotropium 18 Mcg/Puff [Spiriva] 1 cap INHALATION RT-DAILY Albuterol Inhaler (Mhu) [Ventolin Hfa Inhaler] 2 puff INHALATION RT-QID PRN PRN Reason: Shortness Of Breath Ipratropium [place] 0.06%Nasal [Atrovent Nasal 0.06%] 1 spray EA NOSTRIL QID PRN PRN Reason: Allergy Symptoms Isosorbide Mononitrate [Isosorbide Mononitrate ER] 30 mg PO DAILY Nitroglycerin Sl Tabs [Nitrostat] 0.4 mg SUBLINGUAL Q5M PRN PRN Reason: Chest Pain Fluticasone Nasal [place] [Flonase Nasal [place]] 2 spr EA NOSTRIL DAILY PRN PRN Reason: allergies Mupirocin 2% Oint [Bactroban 2% Oint] 1 applic NASAL BID Discharge Medication List Atorvastatin [Lipitor] 40 mg PO HS 07/14/20 [History] Acetaminophen Oral Susp (Peds) [Tylenol Oral Susp For Peds (Grape)] 650 mg NG- TUBE Q6H PRN bottle 08/24/20 [Rx] Amiodarone [Cordarone] 200 mg PO DAILY tab 08/24/20 [Rx] Apixaban [Eliquis] 5 mg PO BID tab 08/24/20 [Rx] Aspirin 81 mg PO DAILY chew 08/24/20 [Rx] Budesonide [Pulmicort] 1 mg INHALATION RT-BID ml 08/24/20 [Rx] Chlorhexidine Gluconate [Peridex] 15 ml MUCOUS MEM BID ml 08/24/20 [Rx] Darbepoetin Alex [Aranesp] 40 mcg SQ Q7D syringe 08/24/20 [Rx] Formoterol Fumarate [Perforomist] 20 mcg INHALATION RT-BID nebu 08/24/20 [Rx] Furosemide [Lasix] 40 mg PO DIRECTED #30 tablet 08/24/20 [Rx] INSULIN ASPART (NovoLOG) [NovoLOG (formulary)] 0 unit SQ Q4HR vial 08/24/20 [Rx] Ipratropium-Albuterol Nebulize [Duoneb 0.5 mg-3 mg/3 ml Soln] 3 ml INHALATION RT-Q2H PRN ml 08/24/20 [Rx] Ipratropium-Albuterol Nebulize [Duoneb 0.5 mg-3 mg/3 ml Soln] 3 ml INHALATION RT-Q4H ml 08/24/20 [Rx] Levothyroxine Sodium [Synthroid] 25 mcg IVP DAILY #30 dose 08/24/20 [Rx] Pantoprazole Sodium [Protonix] 40 mg IVP BID #60 dose 08/24/20 [Rx] QUEtiapine [SEROquel] 25 mg PO BID tab 08/24/20 [Rx] Metoprolol Tartrate [Lopressor] 50 mg PO BID tab 08/25/20 [Rx] Follow up Appointment(s)/Referral(s): Arianne Ferrell MD [Primary Care Provider] - 1 Week (Please call to schedule appointment upon discharge from LTAC) Arianne Mandujano MD [STAFF PHYSICIAN] - 1 Week (Please call to schedule appointment upon discharge from LTAC) Estee Cantor MD [STAFF PHYSICIAN] - 1 Week (Please call to schedule appointment upon discharge from LTAC) [facility], [NON-STAFF] - Ken Perez DO [STAFF PHYSICIAN] - 1 Week (Please call to schedule appointment upon discharge from LT[facility]) Jeaneth Cui MD [STAFF PHYSICIAN] - 1 Week (Please call to schedule appointment upon discharge from LT[facility]) Anjel Dempsey MD [STAFF PHYSICIAN] - 2 Weeks Activity/Diet/Wound Care/Special Instructions: DISCHARGE INSTRUCTIONS: 1. Ventilator management per pulmonology. Wean as able 2. Tube Feedings thru PEG: Nepro at 45 mL/hr, free water flush 200mL every 4 hours, check residual every 4 hours. Retort Firer to consult for further tube feeding orders 3. PICC line to be flushed twice daily. May be removed at facility discretion 4. ALPHONSO hose are to be worn until physician discontinues. 5. Heart hugger is to be worn 100% of the time until surgeon discontinues. 6. No lifting, pushing, or pulling more than 10 pounds for 12 weeks. The physician will advise of any restriction changes. 7. Continue pain control per as needed orders. 8. Continue with incentive spirometry and splinting/heart hugger until otherwise directed by the physician. 9. Must have sponge bath daily using liquid antibacterial soap. 10. Routine sternal incision care. No powders, lotions, ointments on incisions. 11. Please call surgeon/UNIT TECHNICIAN for temp greater than 101 F or purulent drainage from incisions. 12. A Red armband has been placed on the patient. It should be worn for 30 days post discharge and will be removed by the cardiac surgeons. If an ER visit is necessary, please make sure the number on the Red armband is called. 13. Wound VAC dressing to his mid abdominal incision to be changed Friday, Friday and Fridays using black granufoam. Wound VAC therapy settings medium intensity, 125 mmHg continuous. Consult wound care team at LTAC facility. UPON DC FROM [facility] HOME [facility] SERVICES TO PROVIDE: RN SKILLED HOME CARE SERVICES FOR POST-OP SURGICAL PATIENTS WITH THE FOLLOWING: Coronary Artery Bypass Surgery (CABG) RN TO CONTINUE EDUCATION FROM ``ROAD TO A HEALTH HEART PATIENT EDUCATION MANUAL (GIVEN TO PATIENT IN THE HOSPITAL) MEDICATION RECONCILIATION WITH EDUCATION NEEDED ON FIRST HOME VISIT EMPHASIZE IMPORTANCE OF WEARING BREAST SUPPORT/HEART HUGGER ENCOURAGE USE OF INCENTIVE SPIROMETER 10 X EVERY HOUR WHILE AWAKE ENCOURAGE UTILIZATION OF LOWER EXTREMITY COMPRESSION STOCKINGS/ALPHONSO HOSE and ELEVATE LEGS ABOVE LEVEL OF HEART WHILE AT REST. ENCOURAGE AMBULATION 3-5x/day INCREASING TOLERATES, WHILE AVOIDING EXTREMES IN TEMPERATURE FREQUENCY: RN TO OPEN THE PATIENT WITHIN 24 HOURS OF DISCHARGE FROM LTAC, RN TO VISIT 2-3 X A WEEK FOR 4 WEEKS ESTABLISHED BY PATIENT NEEDS. LABORATORY: CBC, CMP TO BE DRAWN ON THE THIRD DAY HOME FROM LTAC, (RAN STAT) FAX RESULTS TO [phone]. TELEHEALTH PARAMETERS: WEIGHT: NOTIFY MD OF WEIGHT GAIN OF 2 LBS IN 24 HOURS OR 5 LBS IN ONE WEEK HR: NOTIFY MD OF HR <55 BPM OR HR>100 BPM BP: NOTIFY MD IF BP <90/55 OR BP>140/100 O2 SAT: NOTIFY MD IF PO2<93% ON ROOM AIR PLEASE COMMUNICATE ANY ABNORMALS AND NEW FINDINGS TO THE SURGEONS OFFICE. For any questions or concerns please call radio disc jockey Bertha @ or Devyn @ [facility]charge [facility]
[2020-08-25 13:31] VITALS: BP 81/60; PULSE 85; RESP 30
--- NOTE | 2020-08-25 14:07 | P.PN ---
Subjective Progress Note Date: 08/25/20 Principal diagnosis: Coronary artery disease, status post three-vessel bypass grafting 79-year-old white male patient with past medical history of hypertension, hyperlipidemia, moderate to severe COPD with the baseline FEV1 of 56% of predicted who came in on 07/18/2020 for elective two-vessel bypass grafting with PABLO to LAD, and SVG to the PDA. He was seen in the intensive care unit following surgery, patient was successfully weaned and extubated from mechanical ventilator and under 6 hours following his OR exit, is currently awake and alert, sitting in the chair, he is currently on 2 L of oxygen, his pulse ox is 98%, hemodynamically he stable, blood pressure is 106/51, PA pressures 35/11, CVP is 8, no fever or chills, IV fluids including the 0.9 normal saline at a r ate of 30 ML per hour, insulin is 4.5 units per hour, no vasoactive drips. Today's chest x-ray shows a pneumoperitoneum with lucency present underneath the right hemidiaphragm. He has left pleural and mediastinal chest tube, and there has been 500 mL of serosanguineous output from the left pleural and 350 mL from the mediastinal chest tube in the last 24 hours. Is having some mild discomfort under the right rib cage, but no acute distress, abdomen is distended but soft, he is hemodynamically stable, he is in sinus mechanism, no nausea vomiting or diarrhea. CT of the abdomen and pelvis is pending today's labs have been reviewed, showing white blood cell count of 11.9, hemoglobin of 9, sodium is 133, the rest of the electrolytes were within normal limits, B1 is 25 creatinine is 1.18 The patient is seen today 07/20/2020 in follow-up in the intensive care unit. He is currently sitting up in a chair at the bedside. Awake and alert in no acute distress. This is postoperative day #2, two-vessel coronary artery bypass surgery. He is currently on 2 L/m per nasal cannula maintaining good O2 saturation in the 90s. He did have issues with atrial fibrillation and is currently on Cardizem drip at 10 mg per hour. He did receive IV amiodarone, initiated on by mouth today. 0.9 normal saline at KVO. Chest x-ray reveals removal of mediastinal drains. Right-sided pneumoperitoneum is no longer appreciated. Left-sided chest tube remains in place. Bibasilar patchy atelectasis remains. White count 18.2. Hemoglobin 8.9. Platelet count 99,000. Sodium 127. Potassium 5.0. Creatinine 1.37. He is pulling approximately 9464-2938 ML's on the incentive spirometer. Continued on bronchodilators. Heparin for DVT prophylaxis. Patient is seen today 07/22/2020 in follow-up on the intensive care unit. He is currently sitting up in a chair at the bedside. He is having complaints of increasing shortness of breath. He is doing less on his incentive spirometer. Chest x-ray reveals small right pleural effusion with adjacent atelectasis and/or consolidation. He is currently maintaining O2 saturations in the low 90s on 3 L/m per nasal cannula. Respiratory rate 32. He is afebrile. Blood pressure stable. He did have issues with atrial fibrillation with rapid ventricular response last evening. He is on a Cardizem drip at 10 mg per hour. He will be transitioned to Eliquis. On oral amiodarone. 0.9 normal saline at 20 ML's per hour. Currently in sinus rhythm. White count 16.8. Hemoglobin 8.8. Sodium 124. Potassium 5.3. Bicarb 20. Creatinine 1.62. AST 147. ALT 130. He is still having issues with hypoactive bowel and not passing flatus or bowel movement since surgery. He remains on bronchodilators and IV Solu-Medrol. The patient is seen today 07/23/2020 in follow-up in the intensive care unit. Postoperative day #5. He is awake and alert in no acute distress. Currently sitting up in a chair at the bedside. He is feeling stronger today. Less short of breath. Maintaining O2 saturations in the 90s on 3 L/m per nasal cannula. Chest x-ray continues to show a small right pleural effusion with prominent right greater than left basilar atelectasis. He is doing better with his incentive spirometer. White count 15.2. Hemoglobin 81.1. Sodium 124. Potassium 5.3. Creatinine 1.84. AST 136. ALT 193. Albumin 3.4. No IV fluids currently. Is continued on bronchodilators, IV Solu-Medrol, anticoagulated with Eliquis. Still has not had a bowel movement. The patient is seen today 08/09/2020 in follow-up in the intensive care unit. He was extubated again yesterday 08/08/2020. He is currently on 2 L/m per nasal cannula. TPN at 75 ML's per hour. 0.9#10 ML's per hour. Amiodarone at 0.25 mg/m. Insulin drip at 7 units per hour. His x-ray reveals some evidence of fluid volume overload. He is also quite edematous. He'll receive Lasix 40 mg IVP 1 today. He'll also be placed on BiPAP 07/22 on 40% FiO2 as he remains slightly tachypneic and shallow breathing. He is quite weak and debilitated today. He remains on bronchodilators. Eraxis. Daptomycin. Being nourished with lipid and TPN. The patient is seen today 08/11/2020 in follow-up in the intensive care unit. He is currently resting fairly comfortably in bed. Maintaining O2 saturation in the 90s on 2 L/m per nasal cannula. He did wear BiPAP last night at 12/5 and 28% FiO2. He is being nourished with TPN at 75 ML's per hour. He is on insulin at 5.5 units per hour. He remains on amiodarone at 0.25 mg/m. White count 10.0. Hemoglobin 9.2. Sodium 145. Potassium 4.0. Creatinine 1.50. Glucose 120. Chest xray reveals persistent bilateral lung opacities and pleural effusions. No significant change. Remains on DuoNeb inhalations, daptomycin, meropenem. Remains slightly tachycardic. Temperature 99.2 axillary. Needs increased encouragement regarding the use of the incentive spirometer. The patient is seen today 08/12/2020 in follow-up in the intensive care unit. He is awake and alert in no acute distress. He is maintaining O2 saturation in the 90s on 2 L/m per nasal cannula. He has TPN at 75 ML's per hour. 0.9 normal sitting at 10 MLS per hour. Insulin drip at 4 units per hour. Chest x-ray showed a questionable left apical pneumothorax. Computed tomography scan of the chest revealed advanced upper lung emphysema but no convincing pneumothorax. There is moderate bilateral pleural effusions with atelectatic collapse of the entire bilateral lower lobes. Small pericardial effusion. He continues to breathe quite shallow with tachypnea. He remains quite weak and debilitated. Currently afebrile. Hemodynamically stable. White count 10.8. Hemoglobin 9.8. Sodium 143. Potassium 4.1. Creatinine 1.44. Glucose 152. AST 49. ALT 62. Albumin 2.5. He remains on daptomycin, Eraxis, bronchodilators. The patient is seen today 08/13/2020 in follow-up in the intensive care unit. He is currently resting fairly comfortably in bed. He remains awake. He is still very weak and debilitated. Physical therapy is working with the patient. He continues with rapid shallow breathing despite encouraging him to take slower deeper breaths. He is maintaining good O2 saturation in the 90s on 2 L/m per nasal cannula. He has TPN for nourishment at 75 ML's per hour. 0.9#10 mL per hour. Insulin drip at 7 units per hour. Chest x-ray continued showing evidence of COPD and continue small to moderate effusions with adjacent atelectasis/ consolidations. He continues to need increased encouragement to utilize the incentive spirometer and cough and deep breathing exercises. White count 11.7. Hemoglobin 10.0. Sodium 144. Potassium 4.2. Creatinine 1.47. Glucose 151. He remains on DuoNeb inhalations, Pulmicort inhalations. Antibiotics in the form of daptomycin. Eraxis. Heparin for DVT prophylaxis. The patient is seen today 08/16/2020 in follow-up in the intensive care unit. Postoperative day #29 of his coronary artery bypass grafting. He is awake and alert in no acute distress. He is currently sitting up in a chair at the bedside. Maintaining O2 saturations up to 99% on 5 L/m per nasal cannula. He remains tachypneic. He has a respiratory pattern of rapid shallow breathing. Chest x-ray reveals COPD with continued small pleural effusions and patchy atelectasis in the bases. He is status post left-sided thoracentesis with 1.4 L of turbid blood tinged fluid removed yesterday. He is status post 5 units of p acked red blood cells this admission. Current hemoglobin 10.3. Platelet count 370. White count 13.5. Sodium 142. Potassium 4.7. Creatinine 1.55. He remains on bronchodilators, Mucomyst, Pulmicort. Insulin drip at 3.5 units per hour. Being nourished with Glucerna. TPN's at 35 mL per hour. 0.9 normal saline at 10 MLS per hour. The patient is seen today 08/17/2020 in follow-up in the intensive care unit. This is postoperative day #30 of his coronary artery bypass grafting. He is currently resting fairly comfortably in bed. He is on BiPAP 15/5 and 35% FiO2. He is 0.9 normal saline at 50 MLS per hour. He is awake. Chest x-ray continues to show stable bibasilar infiltrates. There is some improvement in the right- sided pleural effusion. White count 11.9. Hemoglobin 10.3. Platelets 285. Sodium 136. Potassium 5.4. Creatinine 1.99. Glucose 147. He remains on DuoNeb inhalations, Pulmicort and Perforomist inhalations, Eraxis, Zosyn, daptomycin. Follow-up blood cultures reveal no growth to date. The patient is seen today 08/18/2020 in follow-up in the intensive care unit. Yesterday he developed worsening shortness of breath despite being on BiPAP. He was quite tachypneic and had desaturations. He was subsequently reintubated and placed back on the mechanical ventilator. Assist-control rate of 24, tidal volume 450, FiO2 of 40% and a PEEP of 5. Morning blood gases reveal a P O2 of 168, pCO2 52, pH 7.38. This breath and FiO2 of 60%. Left radial arterial line placed yesterday. He remains on propofol at 40 mcg/kg/m. Heparin drip per weight-based protocol. 0.9 normal sitting at 25 ML's per hour. Norepinephrine at 4 mcg/m. He is being nourished with Nepro 180 MLS every 4 hours with free water flushes. Chest x-ray reveals evidence of congestive heart failure with mild cardiomegaly and small bilateral pleural effusions with mild central vascular congestion and associated basilar atelectasis. He is status post 5 units of packed red blood cells this admission. Current hemoglobin 8.3. White count 9.2. Sodium 145. Potassium 4.3. Creatinine 2.30. Glucose 136. Magnesium 2.6. He remains on bronchodilators, antibiotics in the form of Zosyn and daptomycin. Remains on Eraxis. Ostomy functioning. The patient is seen today 08/19/2020 in follow-up in the intensive care unit. He remains intubated on the mechanical ventilator. Assist-control mode. Rate of 24. Ativan for 50. FiO2 40% and a PEEP of 5. Morning blood gases revealed a pO2 of 87, pCO2 46, pH 7.39. He remains sedated on propofol at 35 mcg/kg/m. Requiring norepinephrine at 1.7 mcg/m. D5W at 20 mL per hour. Heparin drip weight-based protocol. Today's chest x-ray reveals no evidence of pneumothorax. There is a stable right pleural effusion. Endotracheal NG tube locations are good. There is a new patchy airspace disease in the right upper lobe. Some worsening pulmonary edema in the right lower lobe. He remains on DuoNeb inhalations, Pulmicort and Perforomist inhalations. He remains on antibiotics in the form of daptomycin, Eraxis, Zosyn. White count 8.6. Hemoglobin 8.4. D- dimer 1.79. Sodium 142. Potassium 3.8. Creatinine 1.78. Dopplers of the bila teral lower extremities negative for DVT. Plan is for possible tracheostomy tube placement tomorrow with Dr. Cantor. The patient is seen today 08/20/2020 in follow-up in the intensive care unit. He remains intubated on mechanical ventilator. Currently an assist-control mode with a rate of 24, tidal volume 450, FiO2 40% and a PEEP of 5. Morning blood gases reveal a pO2 of 96, pCO2 45, pH 7.40. He remains on norepinephrine at 0.03 mcg/kg/m. Propofol at 35 mcg/kg/m. D5 and half-normal saline at 40 ML's per hour. Tube feeding's are currently on hold. The plan is for tracheostomy tube insertion and possible PEG tube placement today. Chest x-ray shows evidence of mild fluid volume overload and mild cardiomegaly with small bilateral pleural effusions and mild central vascular congestion. Persistent basilar acute infiltrate/atelectasis noted. Back on chronic emphysematous changes. No significant change compared to yesterday. White count 6.7. Hemoglobin 8.4. Sodium 137. Potassium 4.6. Creatinine 1.59. Remains on Zosyn, daptomycin, and Eraxis. The patient is seen today 08/25/2020 follow-up in intensive care unit. He is currently maintaining O2 saturations in the 90s on 40% trach collar. He tolerated trach collar for approximately 12 hours yesterday. He is back on the mechanical ventilator to rest in the evenings on assist control at a rate of 24, tidal volume 450, FiO2 40% and a PEEP of 5. Morning blood gases revealed a PaO2 of 102, pCO2 41, pH 7. 11/17/1938 percent FiO2. Chest x-ray reveals bibasilar infiltrates. Tracheostomy tube in place. PICC line stable position. He remains in atrial fibrillation with rate 101-120 bpm. Is 0.9 normal saline at 1 0 MLS per hour. Being nourished with tube feedings of Nepro at 45 ML's per hour which is his goal. Follow-up sputum culture reveals no growth. White count 14.1. Hemoglobin 8.7. Sodium 136. Potassium 3.6. Creatinine 1.48. He remains on DuoNeb inhalations, Pulmicort and Perforomist inhalations. Anticoagulated with Eliquis. Objective - Vital Signs Vital signs: Vital Signs Temp 99.3 F 08/25/20 09:00 Pulse 85 08/25/20 13:00 Resp 30 H 08/25/20 13:00 BP 81/60 08/25/20 13:00 Pulse Ox 96 08/25/20 13:00 Intake & Output 08/24/20 08/25/20 08/25/20 18:59 06:59 18:59 Intake Total 1446 1331 817 Output Total 1580 1230 1135 Balance -134 101 -318 Weight 87.5 kg Intake: IV 136 36 12 Magnesium Sulfate-D5w Pmx 100 1 gm In Dextrose/Water 1 100ml.bag @ 100 mls/hr IVPB Q1H [facility] Rx#: [id number] pressure bag 36 36 12 Intake, IV Titration 120 200 Amount Dexmedetomidine/0.9% NaCl 100 (Pmx) 400 mcg In Empty Bag 1 bag @ Titrate IV . Q0M [facility] Rx#:[id number] Magnesium Sulfate-D5w Pmx 200 1 gm In Dextrose/Water 1 100ml.bag @ 100 mls/hr IVPB Q1H [facility] Rx#: [id number] Sodium Chloride 0.45% 1, 20 000 ml @ 20 mls/hr IV . Q24H [facility] Rx#:[id number] Oral 800 Tube Feeding 590 495 315 Other 600 290 Output: Urine 1580 1030 410 Stool 200 600 Other 125 Other: Voiding Method Indwelling Catheter Indwelling Catheter Indwelling Catheter ABP, PAP, CO, CI - Last Documented Arterial Blood Pressure 148/69 Pulmonary Artery Pressure 33/14 Cardiac Output 6.7 Cardiac Index 3.1 - Exam GENERAL EXAM: Awake, following commands, pleasant 79-year-old male patient, being very weak and debilitated, on trach collar at 40% FiO2 in no apparent distress. HEAD: Normocephalic/atraumatic. EYES: Normal reaction of pupils, equal size. Conjunctiva pink, sclera white. NOSE: Clear with pink turbinates. THROAT: No erythema or exudates. NECK: Tracheostomy tube secured in place. No masses, no JVD, no thyroid enlargement, no adenopathy. CHEST: No chest wall deformity. Symmetrical expansion. Midsternal incision is clean dry and intact LUNGS: Equal air entry with scattered crackles in the bases. CVS: Regular rate and rhythm, normal S1 and S2, no gallops, no murmurs, no rubs ABDOMEN: PEG tube in place. Abdominal incision with wound VAC in place. Ileostomy the right side of the abdomen EXTREMITIES: No clubbing, no edema, no cyanosis, 2+ pulses and upper and lower extremities. MUSCULOSKELETAL: Muscle strength and tone normal. SPINE: No scoliosis or deformity SKIN: No rashes CENTRAL NERVOUS SYSTEM: Alert, following commands. Tone is normal weak in all 4 extremities. PSYCHIATRIC: Unable to assess. - Labs CBC & Chem 7: 08/25/20 05:30 08/25/20 10:10 Labs: Abnormal Lab Results - Last 24 Hours (Table) 08/24/20 08/24/20 08/24/20 Range/Units 17:28 20:00 23:26 WBC (3.8-10.6) k/uL RBC (4.30-5.90) m/uL Hgb (13.0-17.5) gm/dL Hct (39.0-53.0) % RDW (11.5-15.5) % ABG HCO3 (21-25) mmol/L ABG Total CO2 (19-24) mmol/L ABG O2 Saturation (94-97) % Sodium (137-145) mmol/L BUN (9-20) mg/dL Creatinine (0.66-1.25) mg/dL Glucose (74-99) mg/dL POC Glucose (mg/dL) 141 H 130 H 154 H (75-99) mg/dL 08/25/20 08/25/20 08/25/20 Range/Units 03:39 04:35 05:30 WBC (3.8-10.6) k/uL RBC (4.30-5.90) m/uL Hgb (13.0-17.5) gm/dL Hct (39.0-53.0) % RDW (11.5-15.5) % ABG HCO3 26 H (21-25) mmol/L ABG Total CO2 27 H (19-24) mmol/L ABG O2 Saturation 99.2 H (94-97) % Sodium 136 L (137-145) mmol/L BUN 49 H (9-20) mg/dL Creatinine 1.48 H (0.66-1.25) mg/dL Glucose 155 H (74-99) mg/dL POC Glucose (mg/dL) 166 H (75-99) mg/dL 08/25/20 08/25/20 08/25/20 Range/Units 05:30 07:52 12:05 WBC 14.1 H (3.8-10.6) k/uL RBC 2.92 L (4.30-5.90) m/uL Hgb 8.7 L (13.0-17.5) gm/dL Hct 27.2 L (39.0-53.0) % RDW 15.9 H (11.5-15.5) % ABG HCO3 (21-25) mmol/L ABG Total CO2 (19-24) mmol/L ABG O2 Saturation (94-97) % Sodium (137-145) mmol/L BUN (9-20) mg/dL Creatinine (0.66-1.25) mg/dL Glucose (74-99) mg/dL POC Glucose (mg/dL) 169 H 144 H (75-99) mg/dL Assessment and Plan Assessment: 1 Symptomatic coronary artery disease, status post two-vessel coronary artery bypass grafting with PABLO to the LAD, SVG to the PDA on 07/18/2020 2 Acute hypoxemic respiratory failure requiring reintubation and placed back on a mechanical ventilator on 08/17/2020. Tracheostomy tube placed 08/20/2020, PEG tube placed 08/20/2019 3 Postoperative atrial fibrillation with rapid ventricular response, improved. Remains on amiodarone. Anticoagulated with Eliquis 4 Intraperitoneal hemorrhage status post exploratory laparotomy, washout of peritoneal cavity and ileostomy on 08/02/2020. 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 Galvan Chest x-ray, ABGs and labs reviewed Continue the current treatment plan Awaiting placement to LTAC Continue trach collar as tolerated, placed on mechanical ventilator at night We will continue to follow and make further recommendations based on his clinical status Critical care time 35 minutes I, the cosigning physician, performed a history & physical examination of the patient. Lungs sounds with basilar crackles. Maintaining good O2 saturations in the 90s on trach collar at 40% FiO2. I discussed the assessment and plan of care with my nurse practitioner, Olga Marin. I attest to the above note as dictated by her.
--- NOTE | 2020-08-25 17:45 | PN ---
PROGRESS NOTE DATE OF SERVICE: 08/25/2020 REASON FOR FOLLOWUP VISIT: Leukocytosis and aspiration pneumonia. INTERVAL HISTORY: The patient is currently afebrile. The patient is breathing comfortably, currently on a trach collar. No vomiting or diarrhea has been reported. PHYSICAL EXAMINATION: Blood pressure is 143/84 with a pulse of 96, temperature 99.3. He is 100% on 4 L. General description is an elderly male lying in bed in no distress. Respiratory system: Unlabored breathing, decreased breath sounds in the base, with no wheeze. Heart S1, S2. Regular rate and rhythm. ABDOMEN: Soft, no tenderness. LAB: Cultures remain to be negative. DIAGNOSTIC IMPRESSION AND PLAN: Patient with elevated white count which is multifactorial in this patient who did have some ischemic bowel status post surgery. Also with a component of aspiration pneumonia that has been adequately treated, currently being monitored closely off antibiotic therapy. Continue supportive care. MMODL / IJN: [id number] /
[2020-08-25] MEDS ORDERED: METOPROLOL TARTRATE 50 MG TAB PO SCH (21:00)
== END 2020-08-25 14:55 | DRG 3 ==
LOC: 2ORMAIN 05:49 → 2SICU 15:11
PROVIDERS: ADMIT Surgery; ATTEND Surgery
PROC: 4A1305C Monitoring of Arterial Flow, Coronary, Open Approach (ICD-10-PCS; 2020-07-18 08:00)
PROC: 02100Z9 Bypass Coronary Artery, One Artery from Left Internal Mammary, Open Approach (ICD-10-PCS; 2020-07-18 08:00)
PROC: 06BP4ZZ Excision of Right Saphenous Vein, Percutaneous Endoscopic Approach (ICD-10-PCS; 2020-07-18 08:00)
PROC: 02L70CK Occlusion of Left Atrial Appendage with Extraluminal Device, Open Approach (ICD-10-PCS; 2020-07-18 08:00)
PROC: B24BZZ4 Ultrasonography of Heart with Aorta, Transesophageal (ICD-10-PCS; 2020-07-18 08:00)
PROC: 021009W Bypass Coronary Artery, One Artery from Aorta with Autologous Venous Tissue, Open Approach (ICD-10-PCS; 2020-07-18 08:00)
PROC: 5A1221Z Performance of Cardiac Output, Continuous (ICD-10-PCS; 2020-07-18 08:00)
PROC: 3E043XZ Introduction of Vasopressor into Central Vein, Percutaneous Approach (ICD-10-PCS; 2020-07-18 08:00)
PROC: 5A1955Z Respiratory Ventilation, Greater than 96 Consecutive Hours (ICD-10-PCS; 2020-07-24)
PROC: 0DBB0ZZ Excision of Ileum, Open Approach (ICD-10-PCS; 2020-07-24)
PROC: 0DBA0ZZ Excision of Jejunum, Open Approach (ICD-10-PCS; 2020-07-24)
PROC: 0D9670Z Drainage of Stomach with Drainage Device, Via Natural or Artificial Opening (ICD-10-PCS; 2020-07-24)
PROC: 3E0436Z Introduction of Nutritional Substance into Central Vein, Percutaneous Approach (ICD-10-PCS; 2020-07-25)
PROC: 30243N1 Transfusion of Nonautologous Red Blood Cells into Central Vein, Percutaneous Approach (ICD-10-PCS; 2020-07-26)
PROC: 05H933Z Insertion of Infusion Device into Right Brachial Vein, Percutaneous Approach (ICD-10-PCS; 2020-07-27)
PROC: 3E0G76Z Introduction of Nutritional Substance into Upper GI, Via Natural or Artificial Opening (ICD-10-PCS; 2020-07-27)
PROC: 5A09457 Assistance with Respiratory Ventilation, 24-96 Consecutive Hours, Continuous Positive Airway Pressure (ICD-10-PCS; 2020-07-30)
PROC: 0D1B0Z4 Bypass Ileum to Cutaneous, Open Approach (ICD-10-PCS; 2020-08-02)
PROC: 3E1M38Z Irrigation of Peritoneal Cavity using Irrigating Substance, Percutaneous Approach (ICD-10-PCS; 2020-08-02)
PROC: 0DB80ZZ Excision of Small Intestine, Open Approach (ICD-10-PCS; 2020-08-02)
PROC: 4A133J1 Monitoring of Arterial Pulse, Peripheral, Percutaneous Approach (ICD-10-PCS; 2020-08-03)
PROC: 03HY32Z Insertion of Monitoring Device into Upper Artery, Percutaneous Approach (ICD-10-PCS; 2020-08-03)
PROC: 4A133B1 Monitoring of Arterial Pressure, Peripheral, Percutaneous Approach (ICD-10-PCS; 2020-08-03)
PROC: 02HV33Z Insertion of Infusion Device into Superior Vena Cava, Percutaneous Approach (ICD-10-PCS; 2020-08-03)
PROC: 0W9B3ZZ Drainage of Left Pleural Cavity, Percutaneous Approach (ICD-10-PCS; 2020-08-15)
PROC: 02HV33Z Insertion of Infusion Device into Superior Vena Cava, Percutaneous Approach (ICD-10-PCS; 2020-08-17)
PROC: 4A133B1 Monitoring of Arterial Pressure, Peripheral, Percutaneous Approach (ICD-10-PCS; 2020-08-17)
PROC: 03HY32Z Insertion of Monitoring Device into Upper Artery, Percutaneous Approach (ICD-10-PCS; 2020-08-17)
PROC: 4A133J1 Monitoring of Arterial Pulse, Peripheral, Percutaneous Approach (ICD-10-PCS; 2020-08-17)
PROC: 0DH63UZ Insertion of Feeding Device into Stomach, Percutaneous Approach (ICD-10-PCS; 2020-08-20)
PROC: 0B110F4 Bypass Trachea to Cutaneous with Tracheostomy Device, Open Approach (ICD-10-PCS; principal; 2020-08-20 10:00)
DX: I25.10 Atherosclerotic heart disease of native coronary artery without angina pectoris (principal); N17.0 Acute kidney failure with tubular necrosis; K55.019 Acute (reversible) ischemia of small intestine, extent unspecified; R65.21 Severe sepsis with septic shock; K55.029 Acute infarction of small intestine, extent unspecified; J96.01 Acute respiratory failure with hypoxia; J69.0 Pneumonitis due to inhalation of food and vomit; A41.9 Sepsis, unspecified organism; K66.1 Hemoperitoneum; K91.2 Postsurgical malabsorption, not elsewhere classified; I13.0 Hypertensive heart and chronic kidney disease with heart failure and stage 1 through stage 4 chronic kidney disease, or unspecified chronic kidney disease; Z99.11 Dependence on respirator [ventilator] status; I48.92 Unspecified atrial flutter; I48.21 Permanent atrial fibrillation; I47.1 Supraventricular tachycardia; D62 Acute posthemorrhagic anemia; J98.11 Atelectasis; E87.1 Hypo-osmolality and hyponatremia; E87.0 Hyperosmolality and hypernatremia; G93.40 Encephalopathy, unspecified; B37.0 Candidal stomatitis; E87.4 Mixed disorder of acid-base balance; K56.7 Ileus, unspecified; J90 Pleural effusion, not elsewhere classified; I31.3 Pericardial effusion (noninflammatory); E11.22 Type 2 diabetes mellitus with diabetic chronic kidney disease; N18.30 Chronic kidney disease, stage 3 unspecified; D69.59 Other secondary thrombocytopenia; E11.51 Type 2 diabetes mellitus with diabetic peripheral angiopathy without gangrene; E66.01 Morbid (severe) obesity due to excess calories; J43.9 Emphysema, unspecified; I71.4 Abdominal aortic aneurysm, without rupture; D63.1 Anemia in chronic kidney disease; I25.84 Coronary atherosclerosis due to calcified coronary lesion; E87.5 Hyperkalemia; E87.6 Hypokalemia; E86.1 Hypovolemia; B96.5 Pseudomonas (aeruginosa) (mallei) (pseudomallei) as the cause of diseases classified elsewhere; K80.20 Calculus of gallbladder without cholecystitis without obstruction; T50.2X5A Adverse effect of carbonic-anhydrase inhibitors, benzothiadiazides and other diuretics, initial encounter; E78.5 Hyperlipidemia, unspecified; E89.0 Postprocedural hypothyroidism; K21.9 Gastro-esophageal reflux disease without esophagitis; K44.9 Diaphragmatic hernia without obstruction or gangrene; K22.70 Barrett's esophagus without dysplasia; R33.9 Retention of urine, unspecified; K63.89 Other specified diseases of intestine; T81.82XA Emphysema (subcutaneous) resulting from a procedure, initial encounter; H91.90 Unspecified hearing loss, unspecified ear; Z68.30 Body mass index [BMI] 30.0-30.9, adult; Z79.84 Long term (current) use of oral hypoglycemic drugs; Z79.82 Long term (current) use of aspirin; Z79.890 Hormone replacement therapy; Z79.51 Long term (current) use of inhaled steroids; Z79.899 Other long term (current) drug therapy; Z78.1 Physical restraint status; Z87.891 Personal history of nicotine dependence; Z95.5 Presence of coronary angioplasty implant and graft; Z71.3 Dietary counseling and surveillance; Z98.42 Cataract extraction status, left eye; Z98.41 Cataract extraction status, right eye; Z96.1 Presence of intraocular lens; Z87.01 Personal history of pneumonia (recurrent); Z98.890 Other specified postprocedural states; Z80.3 Family history of malignant neoplasm of breast; Z82.3 Family history of stroke; Z83.79 Family history of other diseases of the digestive system; Z82.5 Family history of asthma and other chronic lower respiratory diseases; Z82.49 Family history of ischemic heart disease and other diseases of the circulatory system; I50.9 Heart failure, unspecified
CPT/HCPCS: 36410; 36573; 36600; 43246; 71045; 71250; 74018; 74176; 74178; 76604; 76937; 80048; 80053; 81001; 82040; 82150; 82271; 82272; 82330; 82533; 82728; 82805; 83540; 83550; 83605; 83690; 83735; 83930; 83935; 84100; 84132; 84145; 84295; 84300; 84439; 84443; 84478; 85025; 85027; 85379; 85520; 85610; 85730; 86140; 86850; 86891; 86900; 86901; 86920; 87040; 87070; 87077; 87186; 87205; 88307; 93970; 94002; 94003; 94640; 94660

== ENCOUNTER 2020-10-02 09:35 | Inpatient (IN) | payer MEDICARE ==
--- NOTE | 2020-10-02 09:47 | ED ---
General Adult HPI - General Stated complaint: HYACINTH Time Seen by Provider: 10/02/20 09:40 - History of Present Illness Initial comments: Dictation was produced using [employer] dictation software. please excuse any grammatical, word or spelling errors. This patient was cared for during a federal and state declared state of emergency secondary to Covid 19 Chief Complaint: 80-year-old male with past medical history of tracheostomy presents from local long term for respiratory distress History of Present Illness: This 80-year-old male he has past medical history of coronary artery disease, dyslipidemia, hypothyroidism him a tracheostomy, paroxysmal atrial fibrillation, COPD presents to the emergency department for respiratory distress. Over the last several days patient has been having worsening dyspnea. EMS was called and patient was brought to the emergency department for evaluation of respiratory failure. He has been allegedly producing several months of mucus and requiring significant amount of mucus suctioning. Patient states he short of breath. Denies any pain. History is limited secondary to respiratory distress. Patient does report he wants to be DO NOT RESUSCITATE. He has a capped tracheostomy. Unable to obtain secondary to respiratory status PHYSICAL EXAM: General Impression: Alert, dyspneic, audible breathing HEENT: Normocephalic atraumatic, extra-ocular movements intact, pupils equal and reactive to light bilaterally, mucous membranes moist. Cardiovascular: Tachycardic Chest: Tachypnea, retractions, nasal breathing Abdomen: abdomen soft, non-tender, non-distended, no organomegaly, midline surgi aidan scar with packing, there is a well-developed fibrinous tissue without any surrounding erythema Musculoskeletal: No peripheral edema, all distal extremities are equally warm Neurological: CN II-XII grossly intact Skin: Intact with no visualized rashes ED course: 80-year-old male presents emergency department for respiratory distress. He has a capped tracheostomy. Respiratory bedside suction patient's tracheostomy with 300 mL of white cloudy fluid. Laboratory evaluation obtained. Leukocytosis 60.6, hemoglobin 9.9 which appears to be around his baseline. This image fills of 14.3. Coag panel is within acceptable limits. Metabolic panel shows hypernatremia 153, creatinine 1.18 with a BUN 100. This likely is secondary to dehydration. Glucose 21, lactic acid acidosis of 4.1, troponin 0.121 likely from acute kidney injury. Carotid versus negative. Chest x-ray shows COPD with improving aeration but with residual prominent patchy bibasilar airspace disease. Considering patient's clinical presentation is given corticosteroids and IV antibiotics cover for community acquired pneumonia. Patient observed in the emergency Department with mild opiate associated hypertension after administration of morphine. Patient is a status. he does not want any aggressive management. patient is over agreeable for admission. patient be admitted to [facility].After tracheal suctioning patient is much improved. Does have hypoxia noted on his arterial blood gases. With a pO2 54.2 with low by oxygen to his trachea. Pulmonology will be consulted.Clinical presentation is consistent with sepsis however given patient's DO NOT RESUSCITATE status we will hydrate patient gently in order to prevent fluid overload given his age and medical issues. In the liter and started on 130 mL of IV fluids per hour. EKG interpretation: Ventricular rate 131, sinus tachycardia,. Interval 140, QRS 86, QTC 469. No NJ prolongation, no QTC prolongation, no ST or T-wave changes noted. EKG compared to 07/18/2020 showing no changes. Overall, this EKG is unremarkable - Related Data Home Medications Medication Instructions Recorded Confirmed Atorvastatin [Lipitor] 40 mg PEG/G-TUBE HS@199907/14/20 10/02/20 Acetaminophen Tab [Tylenol] 650 mg PEG/G-TUBE Q8H PRN 10/02/20 10/02/20 Amiodarone [Cordarone] 200 mg PEG/G-TUBE DAILY 10/02/20 10/02/20 Apixaban [Eliquis] 5 mg PEG/G-TUBE BID 10/02/20 10/02/20 Aspirin 81 mg PEG/G-TUBE DAILY 10/02/20 10/02/20 Epoetin Alex-Epbx [Retacrit] 4,000 units SQ MOWEFR 10/02/20 10/02/20 Insulin Regular [HumuLIN R] See Protocol SQ ACHS 10/02/20 10/02/20 Ipratropium-Albuterol Nebulize 3 ml INHALATION RT-Q4H PRN 10/02/20 10/02/20 [Duoneb 0.5 mg-3 mg/3 ml Soln] Ipratropium-Albuterol Nebulize 3 ml INHALATION RT-TID@08,13,19 10/02/20 10/02/20 [Duoneb 0.5 mg-3 mg/3 ml Soln] Levothyroxine Sodium [Synthroid] 50 mcg PEG/G-TUBE DAILY@1100 10/02/20 10/02/20 Metoprolol Tartrate [Lopressor] 25 mg PEG/G-TUBE Q8H 10/02/20 10/02/20 Midodrine [ProAmatine] 5 mg PEG/G-TUBE TID@0800,1300,1900 10/02/20 10/02/20 Omeprazole 2mg/Ml Oral Suspension 20 mg PEG/G-TUBE BID 10/02/20 10/02/20 QUEtiapine [SEROquel] 25 mg PEG/G-TUBE HS@199910/02/20 10/02/20 Tamsulosin [Flomax] 0.4 mg PEG/G-TUBE DAILY 10/02/20 10/02/20 Allergies Allergy/AdvReac Type Severity Reaction Status Date / Time No Known Allergies Allergy Verified 10/02/20 10:37 Review of Systems ROS Statement: Those systems with pertinent positive or pertinent negative responses have been documented in the HPI. ROS Other: All systems not noted in ROS Statement are negative. 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, pneumonia in November, some decreased kidney function History of Any Multi-Drug Resistant Organisms: None Reported Past Surgical History: Heart Catheterization, Heart Catheterization With Stent Additional Past Surgical History / Comment(s): 1/2 thyroid removed, nessa cataract removal & lens implanted, lasik on nessa eyes, EGD Past Anesthesia/Blood Transfusion Reactions: No Reported Reaction Date of Last Stent Placement:: 2001 Past Psychological History: No Psychological Hx Reported Smoking Status: Former smoker Past Alcohol Use History: Occasional Additional Past Alcohol Use History / Comment(s): Drinks 2-3 glasses of wine approximately once a week-not lately, quit smoking 20 years ago Past Drug Use History: None Reported - Past Family History Mother Family Medical History: Cancer Additional Family Medical History / Comment(s): sx: appendix; CA: breast ( from) Father Family Medical History: COPD, CVA/TIA Additional Family Medical History / Comment(s): CVA in 1978 ( from), sinus sx Course Vital Signs 10/02/20 10/02/20 10/02/20 09:46 10:16 10:50 Temperature 98.9 F Pulse Rate 129 H 123 H 118 H Respiratory 26 H 26 H 24 Rate Blood Pressure 107/73 84/53 86/56 O2 Sat by Pulse 96 94 L 95 Oximetry Medical Decision Making - Lab Data Result diagrams: 10/02/20 09:51 10/02/20 09:51 Lab Results 10/02/20 10/02/20 10/02/20 Range/Units 09:51 09:51 09:51 WBC 16.6 H (3.8-10.6) k/uL RBC 3.65 L (4.30-5.90) m/uL Hgb 9.9 L (13.0-17.5) gm/dL Hct 33.4 L (39.0-53.0) % MCV 91.6 (80.0-100.0) fL MCH 27.2 (25.0-35.0) pg MCHC 29.7 L (31.0-37.0) g/dL RDW 17.3 H (11.5-15.5) % Plt Count 584 H (150-450) k/uL MPV 7.7 Neutrophils % 86 % Lymphocytes % 7 % Monocytes % 6 % Eosinophils % 0 % Basophils % 1 % Neutrophils # 14.3 H (1.3-7.7) k/uL Lymphocytes # 1.1 (1.0-4.8) k/uL Monocytes # 1.0 (0-1.0) k/uL Eosinophils # 0.1 (0-0.7) k/uL Basophils # 0.2 (0-0.2) k/uL Hypochromasia Marked Poikilocytosis Slight Anisocytosis Slight PT 13.9 H (9.0-12.0) sec INR 1.4 H (<1.2) APTT 26.7 (22.0-30.0) sec Sample Site ABG pH (7.35-7.45) ABG pCO2 (35-45) mmHg ABG pO2 (83-108) mmHg ABG HCO3 (21-25) mmol/L ABG Total CO2 (19-24) mmol/L ABG O2 Saturation (94-97) % ABG Base Excess mmol/L Bk Test FiO2 % Sodium 153 H (137-145) mmol/L Potassium 4.6 (3.5-5.1) mmol/L Chloride 106 (98-107) mmol/L Carbon Dioxide 28 (22-30) mmol/L Anion Gap 19 mmol/L BUN 100 H (9-20) mg/dL Creatinine 3.18 H (0.66-1.25) mg/dL Est GFR (CKD-EPI)AfAm 20 (>60 ml/min/1.73 sqM) Est GFR (CKD-EPI)NonAf 18 (>60 ml/min/1.73 sqM) Glucose 181 H (74-99) mg/dL Plasma Lactic Acid Patrice (0.7-2.0) mmol/L Calcium 10.1 (8.4-10.2) mg/dL Magnesium 1.8 (1.6-2.3) mg/dL Total Bilirubin 1.4 H (0.2-1.3) mg/dL AST 110 H (17-59) U/L ALT 154 H (4-49) U/L Alkaline Phosphatase 254 H (38-126) U/L Troponin I (0.000-0.034) ng/mL Total Protein 7.8 (6.3-8.2) g/dL Albumin 3.5 (3.5-5.0) g/dL Coronavirus (PCR) (Not Detectd) 10/02/20 10/02/20 10/02/20 Range/Units 09:51 09:51 10:02 WBC (3.8-10.6) k/uL RBC (4.30-5.90) m/uL Hgb (13.0-17.5) gm/dL Hct (39.0-53.0) % MCV (80.0-100.0) fL MCH (25.0-35.0) pg MCHC (31.0-37.0) g/dL RDW (11.5-15.5) % Plt Count (150-450) k/uL MPV Neutrophils % % Lymphocytes % % Monocytes % % Eosinophils % % Basophils % % Neutrophils # (1.3-7.7) k/uL Lymphocytes # (1.0-4.8) k/uL Monocytes # (0-1.0) k/uL Eosinophils # (0-0.7) k/uL Basophils # (0-0.2) k/uL Hypochromasia Poikilocytosis Anisocytosis PT (9.0-12.0) sec INR (<1.2) APTT (22.0-30.0) sec Sample Site ABG pH (7.35-7.45) ABG pCO2 (35-45) mmHg ABG pO2 (83-108) mmHg ABG HCO3 (21-25) mmol/L ABG Total CO2 (19-24) mmol/L ABG O2 Saturation (94-97) % ABG Base Excess mmol/L Bk Test FiO2 % Sodium (137-145) mmol/L Potassium (3.5-5.1) mmol/L Chloride (98-107) mmol/L Carbon Dioxide (22-30) mmol/L Anion Gap mmol/L BUN (9-20) mg/dL Creatinine (0.66-1.25) mg/dL Est GFR (CKD-EPI)AfAm (>60 ml/min/1.73 sqM) Est GFR (CKD-EPI)NonAf (>60 ml/min/1.73 sqM) Glucose (74-99) mg/dL Plasma Lactic Acid Patrice 4.1 H* (0.7-2.0) mmol/L Calcium (8.4-10.2) mg/dL Magnesium (1.6-2.3) mg/dL Total Bilirubin (0.2-1.3) mg/dL AST (17-59) U/L ALT (4-49) U/L Alkaline Phosphatase (38-126) U/L Troponin I 0.121 H* (0.000-0.034) ng/mL Total Protein (6.3-8.2) g/dL Albumin (3.5-5.0) g/dL Coronavirus (PCR) Not Detected (Not Detectd) 10/02/20 Range/Units 10:06 WBC (3.8-10.6) k/uL RBC (4.30-5.90) m/uL Hgb (13.0-17.5) gm/dL Hct (39.0-53.0) % MCV (80.0-100.0) fL MCH (25.0-35.0) pg MCHC (31.0-37.0) g/dL RDW (11.5-15.5) % Plt Count (150-450) k/uL MPV Neutrophils % % Lymphocytes % % Monocytes % % Eosinophils % % Basophils % % Neutrophils # (1.3-7.7) k/uL Lymphocytes # (1.0-4.8) k/uL Monocytes # (0-1.0) k/uL Eosinophils # (0-0.7) k/uL Basophils # (0-0.2) k/uL Hypochromasia Poikilocytosis Anisocytosis PT (9.0-12.0) sec INR (<1.2) APTT (22.0-30.0) sec Sample Site rrad ABG pH 7.47 H (7.35-7.45) ABG pCO2 40 (35-45) mmHg ABG pO2 54 L* (83-108) mmHg ABG HCO3 29 H (21-25) mmol/L ABG Total CO2 30 H (19-24) mmol/L ABG O2 Saturation 88.0 L (94-97) % ABG Base Excess 5.1 mmol/L Bk Test Yes FiO2 98 % Sodium (137-145) mmol/L Potassium (3.5-5.1) mmol/L Chloride (98-107) mmol/L Carbon Dioxide (22-30) mmol/L Anion Gap mmol/L BUN (9-20) mg/dL Creatinine (0.66-1.25) mg/dL Est GFR (CKD-EPI)AfAm (>60 ml/min/1.73 sqM) Est GFR (CKD-EPI)NonAf (>60 ml/min/1.73 sqM) Glucose (74-99) mg/dL Plasma Lactic Acid Patrice (0.7-2.0) mmol/L Calcium (8.4-10.2) mg/dL Magnesium (1.6-2.3) mg/dL Total Bilirubin (0.2-1.3) mg/dL AST (17-59) U/L ALT (4-49) U/L Alkaline Phosphatase (38-126) U/L Troponin I (0.000-0.034) ng/mL Total Protein (6.3-8.2) g/dL Albumin (3.5-5.0) g/dL Coronavirus (PCR) (Not Detectd) Critical Care Time Critical Care Time: Yes Total Critical Care Time: 33 Disposition Clinical Impression: Respiratory failure Disposition: ADMITTED IP TO THIS HOSP Condition: Critical Referrals: Sridhar Quiroz DO [Primary Care Provider] - 1-2 days Decision Time: 11:25
[2020-10-02] MEDS ORDERED: DEXAMETHASONE SOD PHOSPHATE 10 MG/ML 1 ML VIAL IV STA (09:56)
[2020-10-02] MEDS ORDERED: MORPHINE SULFATE 4 MG/ML SYRINGE IV STA (10:03)
[2020-10-02 10:19] LABS: Anisocytosis Slight; Basophils # (A) 0.2 k/uL (0-0.2); Basophils % (A) 1 %; Eosinophils # (A) 0.1 k/uL (0-0.7); Eosinophils % (A) 0 %; HCT 33.4 % (39.0-53.0); HGB 9.9 gm/dL (13.0-17.5); Hypochromasia Marked; Lymphocytes # (A) 1.1 k/uL (1.0-4.8); Lymphocytes % (A) 7 %; MCH 27.2 pg (25.0-35.0); MCHC 29.7 g/dL (31.0-37.0); MCV 91.6 fL (80.0-100.0); Mean Platelet Volume 7.7; Monocytes % (A) 6 %; Neutrophils # (A) 14.3 k/uL (1.3-7.7); Neutrophils % (A) 86 %; Platelet Count 584 k/uL (150-450); Poikilocytosis Slight; RBC 3.65 m/uL (4.30-5.90); RDW 17.3 % (11.5-15.5); WBC 16.6 k/uL (3.8-10.6)
[2020-10-02 10:22] LABS: Albumin 3.5 g/dL (3.5-5.0); Calcium 10.1 mg/dL (8.4-10.2); Magnesium 1.8 mg/dL (1.6-2.3); Potassium 4.6 mmol/L (3.5-5.1); Total Bilirubin 1.4 mg/dL (0.2-1.3); Total Protein 7.8 g/dL (6.3-8.2)
[2020-10-02 10:23] LABS: INR 1.4 (<1.2); Partial Thromboplastin Time 26.7 sec (22.0-30.0); Prothrombin Time 13.9 sec (9.0-12.0)
[2020-10-02 10:26] LABS: ABG Base Excess 5.1 mmol/L; ABG HCO3 29 mmol/L (21-25); ABG PCO2 40 mmHg (35-45); ABG PH 7.47 (7.35-7.45); ABG TCO2 30 mmol/L (19-24); Allen Test Performed? Yes
[2020-10-02 10:28] LABS: ABG PO2 54 mmHg (83-108)
[2020-10-02] MEDS ORDERED: SODIUM CHLORIDE 0.9% 1,000 ML IV STA ×2 (10:32→11:22)
--- NOTE | 2020-10-02 11:20 | XR ---
EXAMINATION TYPE: XR chest 1V portable DATE OF EXAM: 10/02/2020 Comparison: 08/25/2020 Clinical History: 80-year-old male respiratory failure Findings: Tracheostomy cannula is present. Median sternotomy wires and postsurgical clips in the mediastinum. H eart upper limits of normal in size. Hyperinflation with relative upper lung lucencies. Aeration is i mproving though residual patchy bibasilar infiltrates remain. Impression: COPD with improving aeration but with residual prominent patchy bibasilar airspace disease.
[2020-10-02] MEDS ORDERED: AZITHROMYCIN 500 MG in SODIUM CHLORIDE 0.9% 250 ML IVPB STA (11:21)
[2020-10-02] MEDS ORDERED: cefTRIAXone IN SWFI 1,000 MG/10 ML SYRINGE IVP STA (11:21)
[2020-10-02] MEDS ORDERED: NALOXONE 0.4 MG/ML 1 ML VIAL IV PRN (11:26)
[2020-10-02] MEDS ORDERED: SODIUM CHLORIDE 0.9% 1,000 ML IV ONE ×2 (14:30→18:32)
[2020-10-02 19:38] LABS: Glucose,Whole Blood 86 mg/dL (75-99)
[2020-10-02] MEDS: FAMOTIDINE 20 MG/2 ML VIAL IV SCH (21:33)
--- NOTE | 2020-10-03 00:12 | P.HPIM ---
History of Present Illness This is a pleasant 80 years old male with past medical history of coronary artery disease, COPD, diabetes mellitus, hyperlipidemia, hypertension, hypothyroidism, coronary artery disease status post cardiac cath and stent placement. He recently underwent double coronary artery bypass grafting for his triple-vessel coronary artery disease. He was in the hospital from 07/18/20- 08/25/2020 pt has tracheostomhy and PEG tube , Information were obtained with the help of at bedside, he presents with confusion, and a lot of secretion Why he states that after been discharged from [facility] and he went to [facility] aren't states therefore one month and 5 days and then he was discharged a few days ago to skilled nursing at [facility] on Friday, however over the weekend he has more congestion, he has weak cough and needed frequent suctioning, patient was able to talk weekly his little confused but he can't c ommunicate through gesture, he denies pain but he is tachypneic He has tracheostomy, PEG tube and try to colostomy. On admission patient was tachycardic with heart rate around 120s and with rates 24-30, blood pressure on the low side 89/59. He is saturating 86% on 15 L oxygen via nasal cannula Labs showed leukocytosis of 16.6 K,Hemoglobin is 9.9, platelet is elevated at 584, it looks like concentrated sample and tomorrow will be less hemodilution PH of 7.47 which is high, normal pCO2 at 40, low CO2 at 54. Sodium is elevated at 153, creatinine is elevated to 3.1, liver enzymes moderately elevated, troponin is elevated at 0.12 EKG: Sinus tachycardia at [address]-T changes Chest x-ray: COPD with improving and radiation but with residual prominent patchy bibasilar air space disease In the emergency room patient received Zithromax and ceftriaxone 1, dexamethasone 1, morphine, normal saline at 130 milliliters per hour and 1 L of normal saline Review of Systems CONSTITUTIONAL: No fever, no malaise, no fatigue. HEENT: No recent visual problems or hearing problems. Denied any sore throat. CARDIOVASCULAR: No orthopnea, PND, no palpitations, no syncope. PULMONARY: No chest wall tenderness, no hemoptysis. GASTROINTESTINAL: No diarrhea, no nausea, no vomiting, no abdominal pain. Normoactive bowel sounds. NEUROLOGICAL: No headaches, no weakness, no numbness. HEMATOLOGICAL: Denies any bleeding or petechiae. GENITOURINARY: Denies any burning micturition, frequency, or urgency. MUSCULOSKELETAL/RHEUMATOLOGICAL: Denies any joint pain, swelling, or any muscle pain. ENDOCRINE: Denies any polyuria or polydipsia. 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, pneumonia in November, some decreased kidney function History of Any Multi-Drug Resistant Organisms: None Reported Past Surgical History: Heart Catheterization, Heart Catheterization With Stent Additional Past Surgical History / Comment(s): 1/2 thyroid removed, nessa cataract removal & lens implanted, lasik on nessa eyes, EGD Past Anesthesia/Blood Transfusion Reactions: No Reported Reaction Date of Last Stent Placement:: 2001 Past Psychological History: No Psychological Hx Reported Smoking Status: Former smoker Past Alcohol Use History: Occasional Additional Past Alcohol Use History / Comment(s): Drinks 2-3 glasses of wine approximately once a week-not lately, quit smoking 20 years ago Past Drug Use History: None Reported - Past Family History Mother Family Medical History: Cancer Additional Family Medical History / Comment(s): sx: appendix; CA: breast ( from) Father Family Medical History: COPD, CVA/TIA Additional Family Medical History / Comment(s): CVA in 1978 ( from), sinus sx Medications and Allergies Home Medications Medication Instructions Recorded Confirmed Type Atorvastatin [Lipitor] 40 mg PEG/G-TUBE HS@199907/14/20 10/02/20 History Acetaminophen Tab [Tylenol] 650 mg PEG/G-TUBE Q8H PRN 10/02/20 10/02/20 History Amiodarone [Cordarone] 200 mg PEG/G-TUBE DAILY 10/02/20 10/02/20 History Apixaban [Eliquis] 5 mg PEG/G-TUBE BID 10/02/20 10/02/20 History Aspirin 81 mg PEG/G-TUBE DAILY 10/02/20 10/02/20 History Epoetin Alex-Epbx [Retacrit] 4,000 units SQ MOWEFR 10/02/20 10/02/20 History Insulin Regular [HumuLIN R] See Protocol SQ ACHS 10/02/20 10/02/20 History Ipratropium-Albuterol Nebulize 3 ml INHALATION RT-Q4H PRN 10/02/20 10/02/20 History [Duoneb 0.5 mg-3 mg/3 ml Soln] Ipratropium-Albuterol Nebulize 3 ml INHALATION RT-TID@08,13,19 10/02/20 10/02/20 History [Duoneb 0.5 mg-3 mg/3 ml Soln] Levothyroxine Sodium [Synthroid] 50 mcg PEG/G-TUBE DAILY@1100 10/02/20 10/02/20 History Metoprolol Tartrate [Lopressor] 25 mg PEG/G-TUBE Q8H 10/02/20 10/02/20 History Midodrine [ProAmatine] 5 mg PEG/G-TUBE TID@0800,1300,1900 10/02/20 10/02/20 History Omeprazole 2mg/Ml Oral Suspension 20 mg PEG/G-TUBE BID 10/02/20 10/02/20 History QUEtiapine [SEROquel] 25 mg PEG/G-TUBE HS@2000 10/02/20 10/02/20 History Tamsulosin [Flomax] 0.4 mg PEG/G-TUBE DAILY 10/02/20 10/02/20 History Allergies Allergy/AdvReac Type Severity Reaction Status Date / Time No Known Allergies Allergy Verified 10/02/20 10:37 Physical Exam Vitals: Vital Signs Temp Pulse Resp BP Pulse Ox 10/02/20 13:00 112 H 30 H 89/59 86 L 10/02/20 10:50 118 H 24 86/56 95 10/02/20 10:16 123 H 26 H 84/53 94 L 10/02/20 09:46 98.9 F 129 H 26 H 107/73 96 Intake and Output 10/01/20 10/02/20 10/02/20 22:59 06:59 14:59 Other: Weight 86.183 kg -GENERAL: The patient is awake, looks direct and somewhat confused but he is partially oriented to the surroundings. He is well nourished. Pale HEENT: Pupils are round and equally reacting to light. EOMI. No scleral icterus. No conjunctival pallor. Normocephalic, atraumatic. No pharyngeal erythema. No thyromegaly. CARDIOVASCULAR: S1 and S2 present. No murmurs, rubs, or gallops. -PULMONARY: Chest is clear to auscultation, no wheezing or crackles. Status post tracheostomy with some secretions -ABDOMEN: Soft, nontender, nondistended, normoactive bowel sounds. No palpable organomegaly. PEG tube is in place, right colostomy MUSCULOSKELETAL: No joint swelling or deformity. EXTREMITIES: No cyanosis, clubbing, or pedal edema. NEUROLOGICAL: Gross neurological examination did not reveal any focal deficits. SKIN: No rashes. No petechiae Results CBC & Chem 7: 10/02/20 09:51 10/02/20 09:51 Labs: Abnormal Lab Results - Last 24 Hours (Table) 10/02/20 10/02/20 10/02/20 Range/Units 09:51 09:51 09:51 WBC 16.6 H (3.8-10.6) k/uL RBC 3.65 L (4.30-5.90) m/uL Hgb 9.9 L (13.0-17.5) gm/dL Hct 33.4 L (39.0-53.0) % MCHC 29.7 L (31.0-37.0) g/dL RDW 17.3 H (11.5-15.5) % Plt Count 584 H (150-450) k/uL Neutrophils # 14.3 H (1.3-7.7) k/uL PT 13.9 H (9.0-12.0) sec INR 1.4 H (<1.2) ABG pH (7.35-7.45) ABG pO2 (83-108) mmHg ABG HCO3 (21-25) mmol/L ABG Total CO2 (19-24) mmol/L ABG O2 Saturation (94-97) % Sodium 153 H (137-145) mmol/L BUN 100 H (9-20) mg/dL Creatinine 3.18 H (0.66-1.25) mg/dL Glucose 181 H (74-99) mg/dL Plasma Lactic Acid Patrice (0.7-2.0) mmol/L Total Bilirubin 1.4 H (0.2-1.3) mg/dL AST 110 H (17-59) U/L ALT 154 H (4-49) U/L Alkaline Phosphatase 254 H (38-126) U/L Troponin I (0.000-0.034) ng/mL 10/02/20 10/02/20 10/02/20 Range/Units 09:51 09:51 10:06 WBC (3.8-10.6) k/uL RBC (4.30-5.90) m/uL Hgb (13.0-17.5) gm/dL Hct (39.0-53.0) % MCHC (31.0-37.0) g/dL RDW (11.5-15.5) % Plt Count (150-450) k/uL Neutrophils # (1.3-7.7) k/uL PT (9.0-12.0) sec INR (<1.2) ABG pH 7.47 H (7.35-7.45) ABG pO2 54 L* (83-108) mmHg ABG HCO3 29 H (21-25) mmol/L ABG Total CO2 30 H (19-24) mmol/L ABG O2 Saturation 88.0 L (94-97) % Sodium (137-145) mmol/L BUN (9-20) mg/dL Creatinine (0.66-1.25) mg/dL Glucose (74-99) mg/dL Plasma Lactic Acid Patrice 4.1 H* (0.7-2.0) mmol/L Total Bilirubin (0.2-1.3) mg/dL AST (17-59) U/L ALT (4-49) U/L Alkaline Phosphatase (38-126) U/L Troponin I 0.121 H* (0.000-0.034) ng/mL 10/02/20 Range/Units 12:43 WBC (3.8-10.6) k/uL RBC (4.30-5.90) m/uL Hgb (13.0-17.5) gm/dL Hct (39.0-53.0) % MCHC (31.0-37.0) g/dL RDW (11.5-15.5) % Plt Count (150-450) k/uL Neutrophils # (1.3-7.7) k/uL PT (9.0-12.0) sec INR (<1.2) ABG pH (7.35-7.45) ABG pO2 (83-108) mmHg ABG HCO3 (21-25) mmol/L ABG Total CO2 (19-24) mmol/L ABG O2 Saturation (94-97) % Sodium (137-145) mmol/L BUN (9-20) mg/dL Creatinine (0.66-1.25) mg/dL Glucose (74-99) mg/dL Plasma Lactic Acid Patrice 3.5 H* (0.7-2.0) mmol/L Total Bilirubin (0.2-1.3) mg/dL AST (17-59) U/L ALT (4-49) U/L Alkaline Phosphatase (38-126) U/L Troponin I (0.000-0.034) ng/mL Assessment and Plan Assessment: Acute hypotension , possibly secondary to severe sepsis related to his pneumonia. Possible aspiration pneumonia Acute Hypoxic respiratory failure Acute kidney injury on the top of chronic kidney disease Hypernatremia Elevated lactic acid Elevated troponin, rule out cardiac causes History of triple vessel coronary artery disease status post bypass surgery on 07/18/2020 Atrial fibrillation on Eliquis Recent history of intraperitoneal hemorrhage status post exploratory laparotomy with washout and ileostomy on 08/02/2020 Hypothyroidism Moderate to severe COPD, Remote history of nicotine dependence Chronic kidney disease stage II Hypertension Hyperlipidemia Type 2 diabetes mellitus No code Plan: This is a pleasant 80 years old male who presents with dyspnea and hypotension possible secondary to aspiration pneumonia. Start the patient on Zosyn. Consent sputum for culture. Check a pro-calcitonin follow-up blood culture.Pulmonary and cardiology consult, continue with IV fluids, and given another bolus of 1 L of normal saline, continue with oxygen as needed. Labs and medication were reviewed.. Continue same treatment. Continue with symptomatic treatment. Resume home medication if patient able to take them. Monitor lytes and vitals. DVT and GI prophylaxis. Further recommendations depends on the clinical course of the patient DVT prophylaxis: Continue with the Eliquis, GI Prophylaxis: Pepcid Prognosis is guarded
[2020-10-03] MEDS: PIPERACILLIN-TAZOBACTAM 3.375 GM in SODIUM CHLORIDE 0.9% 100 ML IVPB SCH ×2 (00:43→11:13)
[2020-10-03 03:59] LABS: Anisocytosis Slight; Basophils # (A) 0.1 k/uL (0-0.2); Basophils % (A) 1 %; Eosinophils # (A) 0.1 k/uL (0-0.7); Eosinophils % (A) 1 %; HCT 26.6 % (39.0-53.0); Hypochromasia Marked; Lymphocytes # (A) 0.6 k/uL (1.0-4.8); Lymphocytes % (A) 6 %; MCH 27.8 pg (25.0-35.0); MCHC 29.6 g/dL (31.0-37.0); MCV 94.1 fL (80.0-100.0); Monocytes # (A) 0.5 k/uL (0-1.0); Monocytes % (A) 5 %; Neutrophils # (A) 8.3 k/uL (1.3-7.7); Neutrophils % (A) 87 %; Platelet Count 317 k/uL (150-450); RBC 2.83 m/uL (4.30-5.90); RDW 17.3 % (11.5-15.5); WBC 9.5 k/uL (3.8-10.6)
[2020-10-03 04:26] LABS: HGB 7.9 gm/dL (13.0-17.5)
[2020-10-03 04:56] LABS: Potassium 5.4 mmol/L (3.5-5.1)
--- NOTE | 2020-10-03 08:34 | XR ---
EXAMINATION TYPE: XR chest 1V portable DATE OF EXAM: 10/03/2020 COMPARISON: 10/02/2020 INDICATION: Short of breath TECHNIQUE: Single frontal view of the chest is obtained. FINDINGS: The heart size is normal. The pulmonary vasculature is normal. Mild bibasilar infiltrates are present. Small bilateral pleural effusions are present. Tracheostomy t ube is in the midline. IMPRESSION: 1. Mild left basilar infiltrate. 2. Small pleural effusions.
--- NOTE | 2020-10-03 08:53 | P.CRDCN ---
History of Present Illness Consult date: 10/03/20 History of present illness: This is a very pleasant 80-year-old gentleman with coronary artery disease as well as chronic hypoxic respiratory failure as well as hypertension and dyslipidemia and also paroxysmal atrial fibrillation with request to severe as a consult in the intensive care unit for abnormal troponin. In July 2020 patient underwent elective coronary artery bypass grafting. He is known to have coronary artery disease with a prior coronary stenting but he was experiencing increasing shortness of breath with exertion and he underwent myocardial pe rfusion imaging stress test and that came in to be abnormal with evidence of reversible defect. Subsequently he underwent a heart catheterization and that revealed severe triple-vessel coronary artery disease. The patient underwent elective coronary artery bypass grafting in July 2020 with unfortunately post operation course was quite runoff and complicated by multiple intubations and fixed to patient's and also small bowel obstructions require the patient to go back to the operation room and underwent surgery for that. He was discharged from the hospital with tracheostomy tube into an extended-care facility. This time the patient was brought from the extended care facility to the hospital because of possible underlying pneumonia. Apparently he was experiencing increasing in the shortness of breath and also increasing in the secretion from the tracheostomy tube. No fever or chills. When the patient presented to the hospital he was the satting at 86% on 15 L oxygen via nasal cannula. Also his WBC was elevated. The hemoglobin was low. The platelet where normal. The troponin was slightly elevated and because of that we consulted to see the patient. The EKG showed sinus tachycardia. The patient blood pressure was marginally low. The patient himself did not have any chest pain or chest discomfort. He stated that he is feeling slightly better today. Currently he i s getting treated for possible underlying pneumonia/sepsis and likely related to aspiration pneumonia. Intensive care team is on the case at this point. His anticoagulation was restarted. He is not on any beta apolinar because of the marginally low blood pressure. He is on amiodarone at this point. 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, pneumonia in November, some decreased kidney function History of Any Multi-Drug Resistant Organisms: None Reported Past Surgical History: Heart Catheterization, Heart Catheterization With Stent Additional Past Surgical History / Comment(s): 1/2 thyroid removed, nessa cataract removal & lens implanted, lasik on nessa eyes, EGD Past Anesthesia/Blood Transfusion Reactions: No Reported Reaction Date of Last Stent Placement:: 2001 Past Psychological History: No Psychological Hx Reported Smoking Status: Former smoker Past Alcohol Use History: Occasional Additional Past Alcohol Use History / Comment(s): Drinks 2-3 glasses of wine approximately once a week-not lately, quit smoking 20 years ago Past Drug Use History: None Reported - Past Family History Mother Family Medical History: Cancer Additional Family Medical History / Comment(s): sx: appendix; CA: breast ( from) Father Family Medical History: COPD, CVA/TIA Additional Family Medical History / Comment(s): CVA in 1978 ( from), sinus sx Medications and Allergies Home Medications Medication Instructions Recorded Confirmed Type Atorvastatin [Lipitor] 40 mg PEG/G-TUBE HS@199907/14/20 10/02/20 History Acetaminophen Tab [Tylenol] 650 mg PEG/G-TUBE Q8H PRN 10/02/20 10/02/20 History Amiodarone [Cordarone] 200 mg PEG/G-TUBE DAILY 10/02/20 10/02/20 History Apixaban [Eliquis] 5 mg PEG/G-TUBE BID 10/02/20 10/02/20 History Aspirin 81 mg PEG/G-TUBE DAILY 10/02/20 10/02/20 History Epoetin Alex-Epbx [Retacrit] 4,000 units SQ MOWEFR 10/02/20 10/02/20 History Insulin Regular [HumuLIN R] See Protocol SQ ACHS 10/02/20 10/02/20 History Ipratropium-Albuterol Nebulize 3 ml INHALATION RT-Q4H PRN 10/02/20 10/02/20 History [Duoneb 0.5 mg-3 mg/3 ml Soln] Ipratropium-Albuterol Nebulize 3 ml INHALATION RT-TID@08,13,19 10/02/20 10/02/20 History [Duoneb 0.5 mg-3 mg/3 ml Soln] Levothyroxine Sodium [Synthroid] 50 mcg PEG/G-TUBE DAILY@1100 10/02/20 10/02/20 History Metoprolol Tartrate [Lopressor] 25 mg PEG/G-TUBE Q8H 10/02/20 10/02/20 History Midodrine [ProAmatine] 5 mg PEG/G-TUBE TID@0800,1300,1900 10/02/20 10/02/20 History Omeprazole 2mg/Ml Oral Suspension 20 mg PEG/G-TUBE BID 10/02/20 10/02/20 History QUEtiapine [SEROquel] 25 mg PEG/G-TUBE HS@2000 10/02/20 10/02/20 History Tamsulosin [Flomax] 0.4 mg PEG/G-TUBE DAILY 10/02/20 10/02/20 History Allergies Allergy/AdvReac Type Severity Reaction Status Date / Time No Known Allergies Allergy Verified 10/02/20 10:37 Physical Exam Vitals: Vital Signs Temp Pulse Pulse Resp BP BP Pulse Ox 10/03/20 06:00 105 H 27 H 103/58 98 10/03/20 05:00 96 24 102/78 91 L 10/03/20 04:00 97.4 F L 101 H 16 97/53 89 L 10/03/20 03:00 100 17 104/67 92 L 10/03/20 02:00 100 16 98/63 94 L 10/03/20 01:00 103 H 16 105/43 98 10/03/20 00:00 97.5 F L 108 H 21 98/61 97 10/02/20 23:36 98 10/02/20 23:00 110 H 18 96/62 97 10/02/20 22:00 105 H 18 96/58 99 10/02/20 21:00 111 H 21 94/56 96 10/02/20 20:00 97 F L 111 H 20 91/56 98 10/02/20 18:57 111 H 21 88/52 98 10/02/20 18:30 118 H 21 73/43 97 10/02/20 18:15 98.5 F 111 H 21 69/44 97 10/02/20 17:53 114 H 24 107/83 98 10/02/20 14:51 110 H 28 H 90/60 96 10/02/20 13:00 112 H 30 H 89/59 86 L 10/02/20 10:50 118 H 24 86/56 95 10/02/20 10:16 123 H 26 H 84/53 94 L 10/02/20 09:46 98.9 F 129 H 26 H 107/73 96 Intake and Output 10/02/20 10/03/20 10/03/20 22:59 06:59 14:59 Intake Total 1440 750 Output Total 0 250 Balance 1440 500 Intake: IV 1390 750 Piperacillin-Tazobactam 3 100 .375 gm In Sodium Chloride 0.9% 100 ml @ 25 mls/hr IVPB Q12H [facility] Rx# :[id number] Sodium Chloride 0.9% 1, 390 650 000 ml @ 130 mls/hr IV . Q7H42M [facility] Rx#:[id number] Sodium Chloride 0.9% 1, 1000 000 ml @ 999 mls/hr IV . Q1H1M [facility] Rx#:[id number] Oral 50 Output: Urine 0 0 Stool 250 Other: # Voids 0 Weight 86.183 kg - Constitutional General appearance: no acute distress - Respiratory Respiratory: bilateral: rales - Cardiovascular Heart sounds: normal: S1, S2 Results 10/03/20 03:28 10/03/20 03:28 Cardiac Enzymes 10/02/20 10/02/20 Range/Units 09:51 09:51 AST 110 H (17-59) U/L Troponin I 0.121 H* (0.000-0.034) ng/mL Coagulation 10/02/20 Range/Units 09:51 PT 13.9 H (9.0-12.0) sec APTT 26.7 (22.0-30.0) sec CBC 10/02/20 10/03/20 Range/Units 09:51 03:28 WBC 16.6 H 9.5 (3.8-10.6) k/uL RBC 3.65 L 2.83 L (4.30-5.90) m/uL Hgb 9.9 L 7.9 L D (13.0-17.5) gm/dL Hct 33.4 L 26.6 L (39.0-53.0) % Plt Count 584 H 317 (150-450) k/uL Comprehensive Metabolic Panel 10/02/20 10/03/20 Range/Units 09:51 03:28 Sodium 153 H 153 H (137-145) mmol/L Potassium 4.6 5.4 H (3.5-5.1) mmol/L Chloride 106 112 H (98-107) mmol/L Carbon Dioxide 28 28 (22-30) mmol/L BUN 100 H 107 H* (9-20) mg/dL Creatinine 3.18 H 3.51 H (0.66-1.25) mg/dL Glucose 181 H 165 H (74-99) mg/dL Calcium 10.1 9.0 (8.4-10.2) mg/dL AST 110 H (17-59) U/L ALT 154 H (4-49) U/L Alkaline Phosphatase 254 H (38-126) U/L Total Protein 7.8 (6.3-8.2) g/dL Albumin 3.5 (3.5-5.0) g/dL Current Medications Generic Name Dose Route Start Last Admin Trade Name Freq PRN Reason Stop Dose Admin Acetaminophen 650 mg 10/02/20 11:26 Acetaminophen Tab 325 Mg Tab PO Q6HR PRN Mild Pain or Fever > 100.5 Amiodarone HCl 200 mg 10/03/20 09:00 Amiodarone 200 Mg Tab PEG/G-TUBE DAILY [facility] Apixaban 5 mg 10/03/20 09:00 Apixaban 5 Mg Tab PEG/G-TUBE BID [facility] Aspirin 81 mg 10/03/20 09:00 Aspirin 81 Mg PEG/G-TUBE DAILY [facility] Atorvastatin Calcium 40 mg 10/03/20 20:00 Atorvastatin 40 Mg Tab PEG/G-TUBE HS@2000 [facility] Famotidine 10 mg 10/02/20 21:00 10/02/20 21:33 Famotidine 20 Mg/2 Ml Vial IV 10 mg Q12HR [facility] Administration Piperacillin Sod/Tazobactam 100 mls @ 25 mls/hr 10/03/20 00:00 10/03/20 00:43 Sod 3.375 gm/ Sodium Chloride IVPB 25 mls/hr Q12H [facility] Administration Insulin Aspart 0 unit 10/03/20 07:30 Insulin Aspart (Novolog) 100 Unit/Ml Vial SQ ACHS [facility] Protocol Levothyroxine Sodium 50 mcg 10/03/20 11:00 Levothyroxine 50 Mcg Tab PEG/G-TUBE DAILY@1100 [facility] Naloxone HCl 0.2 mg 10/02/20 11:26 Naloxone 0.4 Mg/Ml 1 Ml Vial IV Q2M PRN Opioid Reversal Ondansetron HCl 4 mg 10/02/20 11:26 Ondansetron 4 Mg/2 Ml Vial IVP Q8HR PRN Nausea And Vomiting Pantoprazole Sodium 40 mg 10/03/20 09:00 Pantoprazole 40 Mg/10 Ml Vial IV DAILY [facility] Intake and Output 10/02/20 10/03/20 10/03/20 22:59 06:59 14:59 Intake Total 1440 750 Output Total 0 250 Balance 1440 500 Intake: IV 1390 750 Piperacillin-Tazobactam 3 100 .375 gm In Sodium Chloride 0.9% 100 ml @ 25 mls/hr IVPB Q12H [facility] Rx# :[id number] Sodium Chloride 0.9% 1, 390 650 000 ml @ 130 mls/hr IV . Q7H42M [facility] Rx#:[id number] Sodium Chloride 0.9% 1, 1000 000 ml @ 999 mls/hr IV . Q1H1M [facility] Rx#:[id number] Oral 50 Output: Urine 0 0 Stool 250 Other: # Voids 0 Weight 86.183 kg 10/03/20 03:28 10/03/20 03:28 Assessment and Plan Assessment: Assessment #1 pneumonia/possible aspiration pneumonia/sepsis #2 marginal E low blood pressure #3 sinus tachycardia #4 mildly elevated troponin #5 paroxysmal atrial fibrillation #6 coronary artery disease and status post CABG #7 chronic hypoxic respiratory failure #8 acute on chronic renal failure Plan #1 consider medical treatment for the mildly abnormal troponin which is likely secondary to low blood pressure and tachycardia #2 continue the current medical regimen including oral anticoagulation #3 we will obtain an echocardiogram was Doppler #4 intensive care team is on the case #5 follow-up with the patient #6 consider adding small dose of metoprolol once a pressure is slightly better
[2020-10-03] MEDS ORDERED: ASPIRIN 81 MG PEG/G-TUBE SCH (09:00)
[2020-10-03] MEDS ORDERED: AMIODARONE 200 MG TAB PEG/G-TUBE SCH (09:00)
[2020-10-03] MEDS: INSULIN ASPART (NovoLOG) 100 UNIT/ML VIAL SQ SCH ×3 (09:01→17:23)
[2020-10-03] MEDS ORDERED: LIDOCAINE URO-JET JELLY 2% 5 ML KIT URETHRAL ONE (09:26)
[2020-10-03] MEDS ORDERED: DEXTROSE 5% IN WATER 1,000 ML IV SCH (09:30)
[2020-10-03] MEDS: TAMSULOSIN 0.4 MG CAP.ER.24H PO SCH (09:58)
[2020-10-03] MEDS: PANTOPRAZOLE 40 MG/10 ML VIAL IV SCH (09:58)
[2020-10-03] MEDS: APIXABAN 5 MG TAB PEG/G-TUBE SCH (09:58)
[2020-10-03] MEDS: METOPROLOL TARTRATE 25 MG TAB PO SCH ×3 (10:35→22:47)
[2020-10-03] MEDS: DILTIAZEM 125 MG in SODIUM CHLORIDE 0.9% 100 ML IV SCH (10:35)
[2020-10-03] MEDS ORDERED: LEVOTHYROXINE 50 MCG TAB PEG/G-TUBE SCH ×2 (11:00)
[2020-10-03] MEDS ORDERED: NOREPINEPHRINE 8 MG in SODIUM CHLORIDE 0.9% 250 ML IV SCH (11:00)
[2020-10-03 11:10] LABS: Glucose,Whole Blood 157 mg/dL (75-99)
[2020-10-03] MEDS: MIDODRINE 5 MG TAB PO SCH ×2 (11:12→17:23)
[2020-10-03] MEDS: MAGNESIUM SULFATE-D5W PMX 1 GM in DEXTROSE/WATER 1 100ML.BAG IVPB SCH ×2 (11:13→11:48)
[2020-10-03] MEDS ORDERED: SODIUM CHLORIDE 0.9% 1,000 ML IV ONE (11:28)
--- NOTE | 2020-10-03 11:39 | P.NPCON ---
History of Present Illness - Reason for Consult acute renal failure, chronic renal failure - History of Present Illness Reason for consultation: Acute kidney injury on chronic kidney disease History of present illness: Patient is a 80-year-old male seen in renal consultation for acute kidney injury on chronic kidney disease. Patient has chronic kidney disease stage III with baseline creatinine in the range of 1.2-1.5. Creatinine this admission was 3.18 and is up to 3.51 today. Patient presented to the hospital from extended care facility due to shortness of breath. Patient has a tracheostomy and is currently on 60% FiO2. He received 4 L of normal saline bolus on admission and was then maintained on normal saline at 130 mL an hour. Patient's sodium level was 153 this morning in the fluids were subsequently changed to D5W at 75 mL an hour. He is also noted to be in A. fib with RVR. Cardizem drip was started however patient became quite hypotensive and therefore had to be stopped. Card iology has been notified. Patient's heart rate is currently in the 160s. Chest x-ray revealed small pleural effusions and a mild left-sided infiltrate. Overall the pulmonary vasculature was normal. Patient's urine output is low. The last couple of hours it's been about 25 mL an hour. He does have history of diabetes. I don't see any nonsteroidals and his home medications. Vital signs: Afebrile. Hypotensive. A. fib with RVR. General: The patient appeared well nourished and normally developed. HEENT: Tracheostomy noted. LUNGS: Breath sounds decreased. HEART: Irregular rate and rhythm. ABDOMEN: Soft, no distention noted. EXTREMITITES: No edema. 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, pneumonia in November, some decreased kidney function History of Any Multi-Drug Resistant Organisms: None Reported Past Surgical History: Heart Catheterization, Heart Catheterization With Stent Additional Past Surgical History / Comment(s): 1/2 thyroid removed, nessa cataract removal & lens implanted, lasik on nessa eyes, EGD Past Anesthesia/Blood Transfusion Reactions: No Reported Reaction Date of Last Stent Placement:: 2001 Past Psychological History: No Psychological Hx Reported Smoking Status: Former smoker Past Alcohol Use History: Occasional Additional Past Alcohol Use History / Comment(s): Drinks 2-3 glasses of wine approximately once a week-not lately, quit smoking 20 years ago Past Drug Use History: None Reported - Past Family History Mother Family Medical History: Cancer Additional Family Medical History / Comment(s): sx: appendix; CA: breast ( from) Father Family Medical History: COPD, CVA/TIA Additional Family Medical History / Comment(s): CVA in 1978 ( from), sinus sx Medications and Allergies Home Medications Medication Instructions Recorded Confirmed Type Atorvastatin [Lipitor] 40 mg PEG/G-TUBE HS@199907/14/20 10/02/20 History Acetaminophen Tab [Tylenol] 650 mg PEG/G-TUBE Q8H PRN 10/02/20 10/02/20 History Amiodarone [Cordarone] 200 mg PEG/G-TUBE DAILY 10/02/20 10/02/20 History Apixaban [Eliquis] 5 mg PEG/G-TUBE BID 10/02/20 10/02/20 History Aspirin 81 mg PEG/G-TUBE DAILY 10/02/20 10/02/20 History Epoetin Alex-Epbx [Retacrit] 4,000 units SQ MOWEFR 10/02/20 10/02/20 History Insulin Regular [HumuLIN R] See Protocol SQ ACHS 10/02/20 10/02/20 History Ipratropium-Albuterol Nebulize 3 ml INHALATION RT-Q4H PRN 10/02/20 10/02/20 History [Duoneb 0.5 mg-3 mg/3 ml Soln] Ipratropium-Albuterol Nebulize 3 ml INHALATION RT-TID@08,13,19 10/02/20 10/02/20 History [Duoneb 0.5 mg-3 mg/3 ml Soln] Levothyroxine Sodium [Synthroid] 50 mcg PEG/G-TUBE DAILY@1100 10/02/20 10/02/20 History Metoprolol Tartrate [Lopressor] 25 mg PEG/G-TUBE Q8H 10/02/20 10/02/20 History Midodrine [ProAmatine] 5 mg PEG/G-TUBE TID@0800,1300,1900 10/02/20 10/02/20 History Omeprazole 2mg/Ml Oral Suspension 20 mg PEG/G-TUBE BID 10/02/20 10/02/20 History QUEtiapine [SEROquel] 25 mg PEG/G-TUBE HS@2000 10/02/20 10/02/20 History Tamsulosin [Flomax] 0.4 mg PEG/G-TUBE DAILY 10/02/20 10/02/20 History Allergies Allergy/AdvReac Type Severity Reaction Status Date / Time No Known Allergies Allergy Verified 10/02/20 10:37 Physical Exam Vitals: Vital Signs Temp Pulse Pulse Resp BP BP Pulse Ox 10/03/20 11:00 165 H 26 H 42/21 100 10/03/20 10:50 170 H 28 H 78/20 100 10/03/20 10:40 186 H 26 H 76/52 99 10/03/20 10:30 170 H 22 58/45 99 10/03/20 10:15 174 H 69 H 88/73 10/03/20 10:00 172 H 55 H 100/67 71 L 10/03/20 09:45 184 H 36 H 114/70 88 L 10/03/20 09:30 93 26 H 95 10/03/20 09:15 96 30 H 93/69 92 L 10/03/20 09:00 97 29 H 90 L 10/03/20 08:00 97.9 F 97 32 H 97/68 95 10/03/20 07:00 98 33 H 107/61 94 L 10/03/20 06:00 105 H 27 H 103/58 98 10/03/20 05:00 96 24 102/78 91 L 10/03/20 04:00 97.4 F L 101 H 16 97/53 89 L 10/03/20 03:00 100 17 104/67 92 L 10/03/20 02:00 100 16 98/63 94 L 10/03/20 01:00 103 H 16 105/43 98 10/03/20 00:00 97.5 F L 108 H 21 98/61 97 10/02/20 23:36 98 10/02/20 23:00 110 H 18 96/62 97 10/02/20 22:00 105 H 18 96/58 99 10/02/20 21:00 111 H 21 94/56 96 10/02/20 20:00 97 F L 111 H 20 91/56 98 10/02/20 18:57 111 H 21 88/52 98 10/02/20 18:30 118 H 21 73/43 97 10/02/20 18:15 98.5 F 111 H 21 69/44 97 10/02/20 17:53 114 H 24 107/83 98 10/02/20 14:51 110 H 28 H 90/60 96 10/02/20 13:00 112 H 30 H 89/59 86 L Intake and Output 10/02/20 10/03/20 10/03/20 22:59 06:59 14:59 Intake Total 1440 750 640 Output Total 0 250 55 Balance 1440 500 585 Intake: IV 1390 750 540 Dextrose 5% in Water 1, 150 000 ml @ 75 mls/hr IV . [id number] [facility] Rx#:[id number] Piperacillin-Tazobactam 3 100 .375 gm In Sodium Chloride 0.9% 100 ml @ 25 mls/hr IVPB Q12H [facility] Rx# :[id number] Sodium Chloride 0.9% 1, 390 650 390 000 ml @ 130 mls/hr IV . Q7H42M [facility] Rx#:[id number] Sodium Chloride 0.9% 1, 1000 000 ml @ 999 mls/hr IV . Q1H1M [facility] Rx#:[id number] Oral 50 100 Output: Urine 0 0 55 Stool 250 Other: # Voids 0 Weight 86.183 kg 86.183 kg Results - Lab Results Most recent lab results ABG pH 7.47 (7.35-7.45) H 10/02/20 10:06 ABG pCO2 40 mmHg (35-45) 10/02/20 10:06 ABG pO2 54 mmHg (83-108) L* 10/02/20 10:06 ABG HCO3 29 mmol/L (21-25) H 10/02/20 10:06 ABG O2 Saturation 88.0 % (94-97) L 10/02/20 10:06 Calcium 9.0 mg/dL (8.4-10.2) 10/03/20 03:28 Magnesium 1.6 mg/dL (1.6-2.3) 10/03/20 03:28 10/03/20 03:28 10/03/20 03:28 Assessment and Plan Plan: Assessment: 1. Acute kidney injury secondary to ATN secondary to hypotension. Creatinine 3.51 today. 2. Chronic kidney disease stage III with baseline creatinine 1.2-1.5 secondary to nephrosclerosis. 3. A. fib with RVR. 4. Hypernatremia secondary to lack of oral water intake. 5. Mild hyperkalemia secondary to acute kidney injury. 6. Diabetes mellitus. 7. Anemia of chronic kidney disease. Maintained on Aranesp. Rule out iron deficiency. Plan: Cardiology following regarding A. fib. Patient receiving another fluid bolus and also being started on Levophed. Agree with D5W. Repeat BMP this evening. Continue to monitor renal function and urine output. Avoid nephrotoxins. Check renal ultrasound. Check iron studies. Thank you for the consultation. I will continue to follow the patient with you during his hospital stay.
--- NOTE | 2020-10-03 11:58 | P.CONS ---
History of Present Illness - Reason for Consult Consult date: 10/03/20 Wound care - History of Present Illness This is a 80-year-old patient being seen in ICU for nonhealing ulceration to abdomen and sacrum. Previously patient had abdominal surgery related to necrotic bowel. He has retention sutures in place. The ulceration did have an eschar That was removed by Dr. Dempsey at the bedside. Abdominal ulceration is midline with no tunneling or undermining noted with significant slough th roughout the wound bed and minimal granulation. Wound edges are tested the wound base. Periwound does show some excoriation. Sacrum ulceration is a stage II pressure ulcer with fatty layer exposure no tunneling or undermining noted. No granulation seen throughout the wound bed. Periwound shows ecchymosis throughout. Wound edges are unattached to the wound base. Patient's past medical history includes coronary artery disease, COPD, diabetes mellitus, hyperlipidemia, hypertension, pneumonia, renal disease, he is a former smoker. Denies diabetes. Review Of Systems: Constitutional: No fever, no chills, no night sweats. No weight change. No weakness, fatigue or lethargy. No daytime sleepiness. Integumentary:reports wounds, no lesions. No rash or pruritus. No unusual bruising. No change in hair or nails. Physical exam: General Appearance: Alert, cooperative, no distress, appears stated age. Skin: See HPI all other Skin color, texture, tugor normal, no rashes or lesions. Neurologic: Alert oriented x3 Assessment/plan: 1. Surgical wound dehiscence: Absorptive silver, saline moistened gauze, dry gauze, ABDs, secure with paper tape. Friday Patient may r equire outpatient wound treatments to assist with healing. The wound care center would be happy to see him once the patient is discharged. 2. Nonhealing ulceration with fat layer exposure abdomen. See note above 3. Stage II pressure ulcer with fatty layer exposure sacrum. Apply absorptive silver, saline moistened gauze, foam sacrum border gauze. Change Friday. Term patient every 2 hours. Patient may benefit from outpatient wound treatment. Thank you for the consultation any questions to contact the wound care center DNP note has been reviewed and discussed with Dr. Lee and the impression and plan of care has been directed as dictated. 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, pneumonia in November, some decreased kidney function History of Any Multi-Drug Resistant Organisms: None Reported Past Surgical History: Heart Catheterization, Heart Catheterization With Stent Additional Past Surgical History / Comment(s): 1/2 thyroid removed, nessa cataract removal & lens implanted, lasik on nessa eyes, EGD Past Anesthesia/Blood Transfusion Reactions: No Reported Reaction Date of Last Stent Placement:: 2001 Past Psychological History: No Psychological Hx Reported Smoking Status: Former smoker Past Alcohol Use History: Occasional Additional Past Alcohol Use History / Comment(s): Drinks 2-3 glasses of wine approximately once a week-not lately, quit smoking 20 years ago Past Drug Use History: None Reported - Past Family History Mother Family Medical History: Cancer Additional Family Medical History / Comment(s): sx: appendix; CA: breast ( from) Father Family Medical History: COPD, CVA/TIA Additional Family Medical History / Comment(s): CVA in 1978 ( from), sinus sx Medications and Allergies Home Medications Medication Instructions Recorded Confirmed Type Atorvastatin [Lipitor] 40 mg PEG/G-TUBE HS@199907/14/20 10/02/20 History Acetaminophen Tab [Tylenol] 650 mg PEG/G-TUBE Q8H PRN 10/02/20 10/02/20 History Amiodarone [Cordarone] 200 mg PEG/G-TUBE DAILY 10/02/20 10/02/20 History Apixaban [Eliquis] 5 mg PEG/G-TUBE BID 10/02/20 10/02/20 History Aspirin 81 mg PEG/G-TUBE DAILY 10/02/20 10/02/20 History Epoetin Alex-Epbx [Retacrit] 4,000 units SQ MOWEFR 10/02/20 10/02/20 History Insulin Regular [HumuLIN R] See Protocol SQ ACHS 10/02/20 10/02/20 History Ipratropium-Albuterol Nebulize 3 ml INHALATION RT-Q4H PRN 10/02/20 10/02/20 History [Duoneb 0.5 mg-3 mg/3 ml Soln] Ipratropium-Albuterol Nebulize 3 ml INHALATION RT-TID@08,13,19 10/02/20 10/02/20 History [Duoneb 0.5 mg-3 mg/3 ml Soln] Levothyroxine Sodium [Synthroid] 50 mcg PEG/G-TUBE DAILY@1100 10/02/20 10/02/20 History Metoprolol Tartrate [Lopressor] 25 mg PEG/G-TUBE Q8H 10/02/20 10/02/20 History Midodrine [ProAmatine] 5 mg PEG/G-TUBE TID@0800,1300,1900 10/02/20 10/02/20 History Omeprazole 2mg/Ml Oral Suspension 20 mg PEG/G-TUBE BID 10/02/20 10/02/20 History QUEtiapine [SEROquel] 25 mg PEG/G-TUBE HS@2000 10/02/20 10/02/20 History Tamsulosin [Flomax] 0.4 mg PEG/G-TUBE DAILY 10/02/20 10/02/20 History Allergies Allergy/AdvReac Type Severity Reaction Status Date / Time No Known Allergies Allergy Verified 10/02/20 10:37 Physical Exam Vitals: Vital Signs Temp Pulse Pulse Resp BP BP Pulse Ox 10/03/20 11:00 165 H 26 H 42 100 10/03/20 10:50 170 H 28 H 78/20 100 10/03/20 10:40 186 H 26 H 76/52 99 10/03/20 10:30 170 H 22 58/45 99 10/03/20 10:15 174 H 69 H 88/73 10/03/20 10:00 172 H 55 H 100/67 71 L 10/03/20 09:45 184 H 36 H 114/70 88 L 10/03/20 09:30 93 26 H 95 10/03/20 09:15 96 30 H 93/69 92 L 10/03/20 09:00 97 29 H 90 L 10/03/20 08:00 97.9 F 97 32 H 97/68 95 10/03/20 07:00 98 33 H 107/61 94 L 10/03/20 06:00 105 H 27 H 103/58 98 10/03/20 05:00 96 24 102/78 91 L 10/03/20 04:00 97.4 F L 101 H 16 97/53 89 L 10/03/20 03:00 100 17 104/67 92 L 10/03/20 02:00 100 16 98/63 94 L 10/03/20 01:00 103 H 16 105/43 98 10/03/20 00:00 97.5 F L 108 H 21 98/61 97 10/02/20 23:36 98 10/02/20 23:00 110 H 18 96/62 97 10/02/20 22:00 105 H 18 96/58 99 10/02/20 21:00 111 H 21 94/56 96 10/02/20 20:00 97 F L 111 H 20 91/56 98 10/02/20 18:57 111 H 21 88/52 98 10/02/20 18:30 118 H 21 73/43 97 10/02/20 18:15 98.5 F 111 H 21 69/44 97 10/02/20 17:53 114 H 24 107/83 98 10/02/20 14:51 110 H 28 H 90/60 96 10/02/20 13:00 112 H 30 H 89/59 86 L Intake and Output 10/02/20 10/03/20 10/03/20 22:59 06:59 14:59 Intake Total 1440 750 640 Output Total 0 250 55 Balance 1440 500 585 Intake: IV 1390 750 540 Dextrose 5% in Water 1, 150 000 ml @ 75 mls/hr IV . [id number] WADE Rx#:[id number] Piperacillin-Tazobactam 3 100 .375 gm In Sodium Chloride 0.9% 100 ml @ 25 mls/hr IVPB Q12H WADE Rx# :[id number] Sodium Chloride 0.9% 1, 390 650 390 000 ml @ 130 mls/hr IV . Q7H42M STA Rx#:[id number] Sodium Chloride 0.9% 1, 1000 000 ml @ 999 mls/hr IV . Q1H1M ONE Rx#:[id number] Oral 50 100 Output: Urine 0 0 55 Stool 250 Other: # Voids 0 Weight 86.183 kg 86.183 kg Results CBC & Chem 7: 10/03/20 03:28 10/03/20 03:28 Labs: Abnormal Lab Results - Last 24 Hours (Table) 10/02/20 10/03/20 10/03/20 Range/Units 12:43 03:28 03:28 RBC 2.83 L (4.30-5.90) m/uL Hgb 7.9 L D (13.0-17.5) gm/dL Hct 26.6 L (39.0-53.0) % MCHC 29.6 L (31.0-37.0) g/dL RDW 17.3 H (11.5-15.5) % Neutrophils # 8.3 H (1.3-7.7) k/uL Lymphocytes # 0.6 L (1.0-4.8) k/uL Sodium 153 H (137-145) mmol/L Potassium 5.4 H (3.5-5.1) mmol/L Chloride 112 H (98-107) mmol/L BUN 107 H* (9-20) mg/dL Creatinine 3.51 H (0.66-1.25) mg/dL Glucose 165 H (74-99) mg/dL POC Glucose (mg/dL) (75-99) mg/dL Plasma Lactic Acid Patrice 3.5 H* (0.7-2.0) mmol/L 10/03/20 Range/Units 11:09 RBC (4.30-5.90) m/uL Hgb (13.0-17.5) gm/dL Hct (39.0-53.0) % MCHC (31.0-37.0) g/dL RDW (11.5-15.5) % Neutrophils # (1.3-7.7) k/uL Lymphocytes # (1.0-4.8) k/uL Sodium (137-145) mmol/L Potassium (3.5-5.1) mmol/L Chloride (98-107) mmol/L BUN (9-20) mg/dL Creatinine (0.66-1.25) mg/dL Glucose (74-99) mg/dL POC Glucose (mg/dL) 157 H (75-99) mg/dL Plasma Lactic Acid Patrice (0.7-2.0) mmol/L Microbiology - Last 24 Hours (Table) 10/03/20 05:35 Sputum Culture - Preliminary Sputum Assessment and Plan (1) Pressure ulcer of sacral region, stage 2 Current Visit: Yes Status: Acute Code(s): L89.152 - PRESSURE ULCER OF SACRAL REGION, STAGE 2 SNOMED Code(s): 261895334 (2) Non-pressure chronic ulcer of skin of other sites with fat layer exposed Current Visit: Yes Status: Acute Code(s): L98.492 - NON-PRS CHRONIC ULCER OF SKIN OF SITES W FAT LAYER EXPOSED SNOMED Code(s): 64484346 (3) Surgical wound dehiscence Current Visit: Yes Status: Acute Code(s): T81.31XA - DISRUPTION OF EXTERNAL OPERATION (SURGICAL) WOUND, NEC, INIT SNOMED Code(s): 75804029
[2020-10-03] MEDS: DARBEPOETIN ALFA 40 MCG/0.4 ML SYRINGE SQ SCH (12:08)
--- NOTE | 2020-10-03 12:34 | US ---
EXAMINATION TYPE: US kidneys/renal and bladder DATE OF EXAM: 10/03/2020 COMPARISON: NONE CLINICAL HISTORY: connor. CONNOR Limited due to patient positioning. EXAM MEASUREMENTS: Right Kidney: 11.6 x 5.7 x 4.6 cm Left Kidney: 10.2 x 4.5 x 4.2 cm Right Kidney: Limited no hydronephrosis seen. Left Kidney: Limited no hydronephrosis seen. Bladder: Cather in place. Bilateral Jets seen: no IMPRESSION: Normal bilateral renal ultrasound
--- NOTE | 2020-10-03 13:59 | P.GSCN ---
History of Present Illness Consult date: 10/03/20 History of present illness: CHIEF COMPLAINT: Respiratory distress HISTORY OF PRESENT ILLNESS: This is a 80-year-old male with a past medical history of coronary artery disease with coronary artery bypass grafting in July 2020, history of hypertension, hyperlipidemia, paroxysmal atrial fibrillation. Patient had hospitalization from 07/18/2020 to 08/25/2020 and at that time had CABG. He did required [address] Dempsey. First surgical intervention was on 07/24/2020 ischemic small bowel with evidence of pneumatosis status post small bowel resection. And the other surgery was on 08/02/2020 intraperitoneal hemorrhage patient underwent an exploratory laparotomy, washout of peritoneal cavity and ileostomy with small bowel resection. Patient incision was left open and had wound VAC in place. Patient brought back into the emergency room due to respiratory failure and pneumonia with concerns of aspiration pneumonia. Surgical consult was placed regarding patient's abdominal wound. Patient has been hypotensive. He is receiving fluid boluses and is being started on Levophed. He is on trach collar setting and 99%. Patient is tachycardic. PAST MEDICAL HISTORY: See list. PAST SURGICAL HISTORY: See list. MEDICATIONS: See list. ALLERGIES: See list. SOCIAL HISTORY: No illicit drug use. REVIEW OF SYSTEMS: CONSTITUTIONAL: Denies fever or chills. HEENT: Denies blurred vision, vision changes, or eye pain. Denies hemoptysis CARDIOVASCULAR: Denies chest pain or pressure. RESPIRATORY: No shortness of breath. GASTROINTESTINAL: See HPI for pertinent findings HEMATOLOGIC: Denies bleeding disorders. GENITOURINARY: Denies any blood in urine or increased urinary frequency. SKIN: Denies pruitis. Denies rash. PHYSICAL EXAM: VITAL SIGNS: Reviewed GENERAL: Well-developed in no acute distress. HEENT: No sclera icterus. Extraocular movements grossly intact. Moist buccal mucosa. Head is atraumatic, normocephalic. No nasal drainage. ABDOMEN: Soft. Nondistended. Incisional site is open and there is a 3 inch area of eschar tissue that was removed by Dr. Dempsey at bedside. Underneath tissue is healthy. There are sutures present. NEUROLOGIC: Patient is lethargic LABORATORY DATA: WBC 16.6 down to 9.5 hemoglobin 7.9 platelets 317 sodium 153 potassium 5.4 Creatinine 3.51 AST 110 ALT 154 alk phos 254 total bili 1.40 calcitonin 2.60 covid not detected IMAGING: Chest x-ray COPD with improving aeration but with residual prominent patchy bibasilar airspace disease ASSESSMENT: 1. Abdominal wound at surgical incision site. Eschar tissue removed at bedside by Dr. Dempsey 2. History of ischemic small bowel with evidence of pneumatosis status post small bowel resection on 07/24/2020. And the other surgery was on 3. History of intraperitoneal hemorrhage status post exploratory laparotomy, washout of peritoneal cavity and ileostomy with small bowel resection on 08/02/2020 4. History of CABG in July 2020 5. Acute hypoxic respiratory failure with concerns of possible pneumonia and sepsis 6. Acute kidney injury 7. Elevated LFTs PLAN: -Apply Aquacel Silver packing to the abdominal wound and cover with gauze -Continue supportive care -Continue ICU management -No surgical intervention planned Physician Calcine Furnace Loader note has been reviewed by physician. Signing provider agrees with the documented findings, assessment, and plan of care. 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, pneumonia in November, some decreased kidney function History of Any Multi-Drug Resistant Organisms: None Reported Past Surgical History: Heart Catheterization, Heart Catheterization With Stent Additional Past Surgical History / Comment(s): 1/2 thyroid removed, nessa cataract removal & lens implanted, lasik on nessa eyes, EGD Past Anesthesia/Blood Transfusion Reactions: No Reported Reaction Date of Last Stent Placement:: 2001 Past Psychological History: No Psychological Hx Reported Smoking Status: Former smoker Past Alcohol Use History: Occasional Additional Past Alcohol Use History / Comment(s): Drinks 2-3 glasses of wine approximately once a week-not lately, quit smoking 20 years ago Past Drug Use History: None Reported - Past Family History Mother Family Medical History: Cancer Additional Family Medical History / Comment(s): sx: appendix; CA: breast ( from) Father Family Medical History: COPD, CVA/TIA Additional Family Medical History / Comment(s): CVA in 1978 ( from), sinus sx Medications and Allergies Home Medications Medication Instructions Recorded Confirmed Type Atorvastatin [Lipitor] 40 mg PEG/G-TUBE HS@199907/14/20 10/02/20 History Acetaminophen Tab [Tylenol] 650 mg PEG/G-TUBE Q8H PRN 10/02/20 10/02/20 History Amiodarone [Cordarone] 200 mg PEG/G-TUBE DAILY 10/02/20 10/02/20 History Apixaban [Eliquis] 5 mg PEG/G-TUBE BID 10/02/20 10/02/20 History Aspirin 81 mg PEG/G-TUBE DAILY 10/02/20 10/02/20 History Epoetin Alex-Epbx [Retacrit] 4,000 units SQ MOWEFR 10/02/20 10/02/20 History Insulin Regular [HumuLIN R] See Protocol SQ ACHS 10/02/20 10/02/20 History Ipratropium-Albuterol Nebulize 3 ml INHALATION RT-Q4H PRN 10/02/20 10/02/20 History [Duoneb 0.5 mg-3 mg/3 ml Soln] Ipratropium-Albuterol Nebulize 3 ml INHALATION RT-TID@08,13,19 10/02/20 10/02/20 History [Duoneb 0.5 mg-3 mg/3 ml Soln] Levothyroxine Sodium [Synthroid] 50 mcg PEG/G-TUBE DAILY@1100 10/02/20 10/02/20 History Metoprolol Tartrate [Lopressor] 25 mg PEG/G-TUBE Q8H 10/02/20 10/02/20 History Midodrine [ProAmatine] 5 mg PEG/G-TUBE TID@0800,1300,1900 10/02/20 10/02/20 History Omeprazole 2mg/Ml Oral Suspension 20 mg PEG/G-TUBE BID 10/02/20 10/02/20 History QUEtiapine [SEROquel] 25 mg PEG/G-TUBE HS@2000 10/02/20 10/02/20 History Tamsulosin [Flomax] 0.4 mg PEG/G-TUBE DAILY 10/02/20 10/02/20 History Allergies Allergy/AdvReac Type Severity Reaction Status Date / Time No Known Allergies Allergy Verified 10/02/20 10:37 Surgical - Exam Vital Signs Temp Pulse Resp BP Pulse Ox 98.9 F 129 H 26 H 107/73 96 10/02/20 09:46 10/02/20 09:46 10/02/20 09:46 10/02/20 09:46 10/02/20 09:46 Results - Labs 10/03/20 03:28 10/03/20 03:28 Abnormal Lab Results - Last 24 Hours (Table) 10/02/20 10/03/20 10/03/20 Range/Units 12:43 03:28 03:28 RBC 2.83 L (4.30-5.90) m/uL Hgb 7.9 L D (13.0-17.5) gm/dL Hct 26.6 L (39.0-53.0) % MCHC 29.6 L (31.0-37.0) g/dL RDW 17.3 H (11.5-15.5) % Neutrophils # 8.3 H (1.3-7.7) k/uL Lymphocytes # 0.6 L (1.0-4.8) k/uL Sodium 153 H (137-145) mmol/L Potassium 5.4 H (3.5-5.1) mmol/L Chloride 112 H (98-107) mmol/L BUN 107 H* (9-20) mg/dL Creatinine 3.51 H (0.66-1.25) mg/dL Glucose 165 H (74-99) mg/dL POC Glucose (mg/dL) (75-99) mg/dL Plasma Lactic Acid Patrice 3.5 H* (0.7-2.0) mmol/L Procalcitonin (0.02-0.09) ng/mL 10/03/20 10/03/20 Range/Units 03:28 11:09 RBC (4.30-5.90) m/uL Hgb (13.0-17.5) gm/dL Hct (39.0-53.0) % MCHC (31.0-37.0) g/dL RDW (11.5-15.5) % Neutrophils # (1.3-7.7) k/uL Lymphocytes # (1.0-4.8) k/uL Sodium (137-145) mmol/L Potassium (3.5-5.1) mmol/L Chloride (98-107) mmol/L BUN (9-20) mg/dL Creatinine (0.66-1.25) mg/dL Glucose (74-99) mg/dL POC Glucose (mg/dL) 157 H (75-99) mg/dL Plasma Lactic Acid Patrice (0.7-2.0) mmol/L Procalcitonin 2.60 H (0.02-0.09) ng/mL Microbiology - Last 24 Hours (Table) 10/02/20 09:51 Blood Culture - Preliminary Blood No Growth after 24 hours 10/03/20 05:35 Sputum Culture - Preliminary Sputum Diabetes panel 10/03/20 Range/Units 03:28 Sodium 153 H (137-145) mmol/L Potassium 5.4 H (3.5-5.1) mmol/L Chloride 112 H (98-107) mmol/L Carbon Dioxide 28 (22-30) mmol/L BUN 107 H* (9-20) mg/dL Creatinine 3.51 H (0.66-1.25) mg/dL Glucose 165 H (74-99) mg/dL Calcium 9.0 (8.4-10.2) mg/dL Calcium panel 10/03/20 Range/Units 03:28 Calcium 9.0 (8.4-10.2) mg/dL Pituitary panel 10/03/20 Range/Units 03:28 Sodium 153 H (137-145) mmol/L Potassium 5.4 H (3.5-5.1) mmol/L Chloride 112 H (98-107) mmol/L Carbon Dioxide 28 (22-30) mmol/L BUN 107 H* (9-20) mg/dL Creatinine 3.51 H (0.66-1.25) mg/dL Glucose 165 H (74-99) mg/dL Calcium 9.0 (8.4-10.2) mg/dL Adrenal panel 10/03/20 Range/Units 03:28 Sodium 153 H (137-145) mmol/L Potassium 5.4 H (3.5-5.1) mmol/L Chloride 112 H (98-107) mmol/L Carbon Dioxide 28 (22-30) mmol/L BUN 107 H* (9-20) mg/dL Creatinine 3.51 H (0.66-1.25) mg/dL Glucose 165 H (74-99) mg/dL Calcium 9.0 (8.4-10.2) mg/dL
--- NOTE | 2020-10-03 14:03 | P.CNPUL ---
History of Present Illness Consult date: 10/03/20 Requesting physician: Fer E Sheet Reason for consult: other (Acute on chronic hypoxic respiratory failure) Chief complaint: Shortness of breath History of present illness: This is a 80-year-old white male familiar to my service, in July 2020, patient underwent elective coronary artery bypass grafting. He had a very complicated postoperative course, patient required multiple abdominal surgeries, multiple intubations, extubations, and the intubations, patient was a failure to wean, and he had multiple abdominal surgeries during his stay. Patient underwent tracheostomy, PEG tube placement, and we were able to transfer the patient to an extended care facility. He was at the extended care facility until about a week ago, his tracheostomy was capped, and he was transferred to [facility] in the [facility]. Patient has been noticing increased cough, increased shortness of breath, and significant purulent secretions from the tracheostomy tube when uncapped. O2 saturation was dipping down into the 50s and in the ER he had a saturation of 86% on 15 L high flow nasal cannula. Patient was also noted to have leukocytosis, hemoglobin was low, his troponin was slightly elevated, blood pressure was noted to be marginally low, patient was admitted initially to the cardiac floor, however supposedly he was noted to have blood pressure in the 70s systolic. Patient did receive multiple fluid boluses in the ER over 3 L were given, and we were notified about the patient on the floor having low blood pressure, I recommended transferred to the ICU planning to start the patient on norepinephrine. However over the last 12 hours in the ICU, his blood pressure has been stable patient did not require placement on any pressors. His beta blockers had been on hold because of low blood pressure, and he is maintained on amiodarone. His pro-calcitonin level was noted to be 2.60. And his chest x-ray showed left lower lobe atelectasis, suspect left lower lobe pneumonia. And he had small pleural effusions noted more so than right. Going back to his previous hospital admission, patient did have left lower lobe pneumonia and he did have left pleural effusion requiring thoracentesis once or twice. Cultures previously from the sputum were positive for Pseudomonas fluorescence/putida, sensitive to Zosyn and Levaquin and meropenem. Also sensitive to cefepime. Considering the patient's presentation with hypotension, shortness of breath, cough, abnormal chest x-ray, hypoxia, and considering his recent clinical history, we were asked to see him on consultation Review of Systems CONSTITUTIONAL: No fever, no malaise, no fatigue. HEENT: Negative, however has been noticing significant amount of secretions from the tracheostomy tube. CARDIOVASCULAR: Denies orthopnea or chest pain, denies PND, denies any palpitations or syncope PULMONARY: As noted in HPI. Mostly cough shortness of breath and purulent secretions from tracheostomy. GASTROINTESTINAL: Negative.. Patient has ileostomy NEUROLOGICAL: Negative HEMATOLOGICAL: Negative GENITOURINARY: Negative MUSCULOSKELETAL/RHEUMATOLOGICAL: Negative ENDOCRINE: Denies any polyuria or polydipsia. 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, pneumonia in November, some decreased kidney function History of Any Multi-Drug Resistant Organisms: None Reported Past Surgical History: Heart Catheterization, Heart Catheterization With Stent Additional Past Surgical History / Comment(s): 1/2 thyroid removed, nessa cataract removal & lens implanted, lasik on nessa eyes, EGD Past Anesthesia/Blood Transfusion Reactions: No Reported Reaction Date of Last Stent Placement:: 2001 Past Psychological History: No Psychological Hx Reported Smoking Status: Former smoker Past Alcohol Use History: Occasional Additional Past Alcohol Use History / Comment(s): Drinks 2-3 glasses of wine approximately once a week-not lately, quit smoking 20 years ago Past Drug Use History: None Reported - Past Family History Mother Family Medical History: Cancer Additional Family Medical History / Comment(s): sx: appendix; CA: breast ( from) Father Family Medical History: COPD, CVA/TIA Additional Family Medical History / Comment(s): CVA in 1978 ( from), sinus sx Medications and Allergies Home Medications Medication Instructions Recorded Confirmed Type Atorvastatin [Lipitor] 40 mg PEG/G-TUBE HS@199907/14/20 10/02/20 History Acetaminophen Tab [Tylenol] 650 mg PEG/G-TUBE Q8H PRN 10/02/20 10/02/20 History Amiodarone [Cordarone] 200 mg PEG/G-TUBE DAILY 10/02/20 10/02/20 History Apixaban [Eliquis] 5 mg PEG/G-TUBE BID 10/02/20 10/02/20 History Aspirin 81 mg PEG/G-TUBE DAILY 10/02/20 10/02/20 History Epoetin Alex-Epbx [Retacrit] 4,000 units SQ MOWEFR 10/02/20 10/02/20 History Insulin Regular [HumuLIN R] See Protocol SQ ACHS 10/02/20 10/02/20 History Ipratropium-Albuterol Nebulize 3 ml INHALATION RT-Q4H PRN 10/02/20 10/02/20 History [Duoneb 0.5 mg-3 mg/3 ml Soln] Ipratropium-Albuterol Nebulize 3 ml INHALATION RT-TID@08,13,19 10/02/20 10/02/20 History [Duoneb 0.5 mg-3 mg/3 ml Soln] Levothyroxine Sodium [Synthroid] 50 mcg PEG/G-TUBE DAILY@1100 10/02/20 10/02/20 History Metoprolol Tartrate [Lopressor] 25 mg PEG/G-TUBE Q8H 10/02/20 10/02/20 History Midodrine [ProAmatine] 5 mg PEG/G-TUBE TID@0800,1300,1900 10/02/20 10/02/20 History Omeprazole 2mg/Ml Oral Suspension 20 mg PEG/G-TUBE BID 10/02/20 10/02/20 History QUEtiapine [SEROquel] 25 mg PEG/G-TUBE HS@2000 10/02/20 10/02/20 History Tamsulosin [Flomax] 0.4 mg PEG/G-TUBE DAILY 10/02/20 10/02/20 History Allergies Allergy/AdvReac Type Severity Reaction Status Date / Time No Known Allergies Allergy Verified 10/02/20 10:37 Physical Exam Vitals: Vital Signs Temp Pulse Pulse Resp BP BP Pulse Ox 10/03/20 12:00 80 20 100 10/03/20 11:45 82 22 100 10/03/20 11:30 97.9 F 88 24 90/63 98 10/03/20 11:15 160 H 23 57/43 97 10/03/20 11:00 165 H 26 H 4221 100 10/03/20 10:50 170 H 28 H 78/20 100 10/03/20 10:40 186 H 26 H 76/52 99 10/03/20 10:30 170 H 22 58/45 99 10/03/20 10:15 174 H 20 88/73 10/03/20 10:00 172 H 22 100/67 71 L 10/03/20 09:45 184 H 28 H 114/70 88 L 10/03/20 09:30 93 26 H 95 10/03/20 09:15 96 30 H 93/69 92 L 10/03/20 09:00 97 29 H 90 L 10/03/20 08:00 97.9 F 97 32 H 97/68 95 10/03/20 07:00 98 33 H 107/61 94 L 10/03/20 06:00 105 H 27 H 103/58 98 10/03/20 05:00 96 24 102/78 91 L 10/03/20 04:00 97.4 F L 101 H 16 97/53 89 L 10/03/20 03:00 100 17 104/67 92 L 10/03/20 02:00 100 16 98/63 94 L 10/03/20 01:00 103 H 16 105/43 98 10/03/20 00:00 97.5 F L 108 H 21 98/61 97 10/02/20 23:36 98 10/02/20 23:00 110 H 18 96/62 97 10/02/20 22:00 105 H 18 96/58 99 10/02/20 21:00 111 H 21 94/56 96 10/02/20 20:00 97 F L 111 H 20 91/56 98 10/02/20 18:57 111 H 21 88/52 98 10/02/20 18:30 118 H 21 73/43 97 10/02/20 18:15 98.5 F 111 H 21 69/44 97 10/02/20 17:53 114 H 24 107/83 98 10/02/20 14:51 110 H 28 H 90/60 96 Intake and Output 10/02/20 10/03/20 10/03/20 22:59 06:59 14:59 Intake Total 1440 750 640 Output Total 0 250 55 Balance 1440 500 585 Intake: IV 1390 750 540 Dextrose 5% in Water 1, 150 000 ml @ 75 mls/hr IV . [id number] WADE Rx#:[id number] Piperacillin-Tazobactam 3 100 .375 gm In Sodium Chloride 0.9% 100 ml @ 25 mls/hr IVPB Q12H WADE Rx# :[id number] Sodium Chloride 0.9% 1, 390 650 390 000 ml @ 130 mls/hr IV . Q7H42M STA Rx#:[id number] Sodium Chloride 0.9% 1, 1000 000 ml @ 999 mls/hr IV . Q1H1M ONE Rx#:[id number] Oral 50 100 Output: Urine 0 0 55 Stool 250 Other: # Voids 0 Weight 86.183 kg 86.183 kg Physical Exam: Revealed 80-year-old white male pleasant, on high flow nasal cannula, HEENT:[Neck is supple.] [No neck masses.] [No thyromegaly.] [No JVD.] capped tracheostomy is noted. Chest: Her metrical chest expansion, crackles and rhonchi noted bilaterally especially at the left base Cardiac Exam: [Normal S1 and S2, no S3 gallop, no murmur.] Abdomen: [Soft, nontender, no megaly, no rebound, no guarding, normal bowel sounds.] Surgical scar is noted in the mid abdomen, colostomy in the right lower quadrant is noted. Sutures in the surgical scar noted. Extremities: [No clubbing, 1+ bipedal edema, no cyanosis.] Neurological Exam: Alert and oriented 3. [No focal neurologic deficit.] Psychiatric: Normal mood, affect and normal mental status examination. Skin: No rashes, surgical scar noted in the abdomen, some minimal drainage no ashley, stress in nature, scattered noted in the scar itself, surgery would address the sutures and the incision in the abdomen. Results - Laboratory Findings CBC and BMP: 10/03/20 03:28 10/03/20 03:28 ABG ABG pH 7.47 (7.35-7.45) H 10/02/20 10:06 ABG pCO2 40 mmHg (35-45) 10/02/20 10:06 ABG pO2 54 mmHg (83-108) L* 10/02/20 10:06 ABG O2 Saturation 88.0 % (94-97) L 10/02/20 10:06 PT/INR, D-dimer PT 13.9 sec (9.0-12.0) H 10/02/20 09:51 INR 1.4 (<1.2) H 10/02/20 09:51 Abnormal lab findings: Abnormal Labs 10/02/20 10/02/20 10/02/20 09:51 09:51 09:51 WBC 16.6 H RBC 3.65 L Hgb 9.9 L Hct 33.4 L MCHC 29.7 L RDW 17.3 H Plt Count 584 H Neutrophils # 14.3 H Lymphocytes # PT 13.9 H INR 1.4 H ABG pH ABG pO2 ABG HCO3 ABG Total CO2 ABG O2 Saturation Sodium 153 H Potassium Chloride BUN 100 H Creatinine 3.18 H Glucose 181 H POC Glucose (mg/dL) Plasma Lactic Acid Patrice Total Bilirubin 1.4 H AST 110 H ALT 154 H Alkaline Phosphatase 254 H Troponin I Procalcitonin 10/02/20 10/02/20 10/02/20 09:51 09:51 10:06 WBC RBC Hgb Hct MCHC RDW Plt Count Neutrophils # Lymphocytes # PT INR ABG pH 7.47 H ABG pO2 54 L* ABG HCO3 29 H ABG Total CO2 30 H ABG O2 Saturation 88.0 L Sodium Potassium Chloride BUN Creatinine Glucose POC Glucose (mg/dL) Plasma Lactic Acid Patrice 4.1 H* Total Bilirubin AST ALT Alkaline Phosphatase Troponin I 0.121 H* Procalcitonin 10/02/20 10/03/20 10/03/20 12:43 03:28 03:28 WBC RBC 2.83 L Hgb 7.9 L D Hct 26.6 L MCHC 29.6 L RDW 17.3 H Plt Count Neutrophils # 8.3 H Lymphocytes # 0.6 L PT INR ABG pH ABG pO2 ABG HCO3 ABG Total CO2 ABG O2 Saturation Sodium 153 H Potassium 5.4 H Chloride 112 H BUN 107 H* Creatinine 3.51 H Glucose 165 H POC Glucose (mg/dL) Plasma Lactic Acid Patrice 3.5 H* Total Bilirubin AST ALT Alkaline Phosphatase Troponin I Procalcitonin 10/03/20 10/03/20 03:28 11:09 WBC RBC Hgb Hct MCHC RDW Plt Count Neutrophils # Lymphocytes # PT INR ABG pH ABG pO2 ABG HCO3 ABG Total CO2 ABG O2 Saturation Sodium Potassium Chloride BUN Creatinine Glucose POC Glucose (mg/dL) 157 H Plasma Lactic Acid Patrice Total Bilirubin AST ALT Alkaline Phosphatase Troponin I Procalcitonin 2.60 H - Diagnostic Findings Chest x-ray: image reviewed (As noted in HPI, bibasilar atelectasis, suspect left lower lobe pneumonia.) Assessment and Plan Assessment: Impression: Hypotension secondary to sepsis secondary to left lower lobe pneumonia Acute on chronic hypoxic respiratory failure secondary to pneumonia and underlying COPD. Acute left lower lobe pneumonia, healthcare acquired Sepsis secondary to pneumonia involving the left lower lobe. Acute on chronic kidney injury secondary to sepsis. Moderate severe COPD. History of triple-vessel coronary artery disease, bypass surgery on 07/18/2020 with multiple postoperative complications History of tracheostomy mostly because of failure to wean. Benign essential hypertension. Type 2 diabetes. Dyslipidemia. Chronic atrial fibrillation. History of hypothyroidism. History of ileostomy on 08/02/2020. Recommendation: Continue present supportive care measures. Antibiotics to cover Pseudomonas, patient is now on Zosyn which we will continue. Resume cardiac medications. Sputum culture from tracheostomy secretions. GI and DVT prophylaxis. Continue eliquis. And patient is on Pepcid. On Tracheostomy and place patient on trach collar and no need for high flow nasal cannula at this point. This will help clear secretions even better. Titrate oxygen accordingly. Continue bronchodilators. Resume amiodarone. Continue Cardizem. At 5 mg per hour. Resume midodrine. We'll continue to follow. Patient wished DO NOT RESUSCITATE CODE STATUS upon presentation Time with Patient: Greater than 30
[2020-10-03 16:25] LABS: Glucose,Whole Blood 144 mg/dL (75-99)
[2020-10-03 18:36] LABS: Potassium 4.9 mmol/L (3.5-5.1)
[2020-10-03] MEDS ORDERED: DEXTROSE 5% IN WATER 1,000 ML IV ONE (19:14)
[2020-10-03 20:02] LABS: % Iron Saturation 5.61 (15.00-50.00); Ferritin 1272.7 ng/mL (22.0-322.0)
[2020-10-03] MEDS ORDERED: IPRATROPIUM-ALBUTEROL 3 ML NEB INHALATION PRN (21:23)
[2020-10-03] MEDS: BUDESONIDE 1 MG/2 ML NEBU INHALATION SCH (21:27)
--- NOTE | 2020-10-03 21:32 | P.PN ---
Subjective This is a pleasant 80 years old male with past medical history of coronary artery disease, COPD, diabetes mellitus, hyperlipidemia, hypertension, hy pothyroidism, coronary artery disease status post cardiac cath and stent placement. He recently underwent double coronary artery bypass grafting for his triple-vessel coronary artery disease. He was in the hospital from 07/18/20- 08/25/2020 pt has tracheostomhy and PEG tube , Information were obtained with the help of at bedside, he presents with confusion, and a lot of secretion Why he states that after been discharged from [facility] and he went to [facility] aren't states therefore one month and 5 days and then he was discharged a few days ago to [place] [facility] on Friday, however over the weekend he has more congestion, he has weak cough and needed frequent suctioning, patient was able to talk weekly his little confused but he can't communicate through gesture, he denies pain but he is tachypneic He has tracheostomy, PEG tube and try to colostomy. On admission patient was tachycardic with heart rate around 120s and with rates 24-30, blood pressure on the low side 89/59. He is saturating 86% on 15 L oxygen via nasal cannula Labs showed leukocytosis of 16.6 K,Hemoglobin is 9.9, platelet is elevated at 584, it looks like concentrated sample and tomorrow will be less hemodilution PH of 7.47 which is high, normal pCO2 at 40, low CO2 at 54. Sodium is elevated at 153, creatinine is elevated to 3.1, liver enzymes moderately elevated, troponin is elevated at 0.12 EKG: Sinus tachycardia at [address]-T changes Chest x-ray: COPD with improving and radiation but with residual prominent patchy bibasilar air space disease In the emergency room patient received Zithromax and ceftriaxone 1, dexamethasone 1, morphine, normal saline at 130 milliliters per hour and 1 L of normal saline 10/03/2020 Patient today is seen in the ICU for close monitoring, is more awake and more alert mentally, no specific complaint however still dyspneic and tachypneic with weak cough and he has abdominal midline wound with yellow patient at the surgical site He is saturating 100% on trach collar with FiO2 of 60%, is tachypneic with a breathing rate 24-26. Afebrile. Blood pressure still on the low side with systolic fluctuating between 70s to 110 . Earlier his heart rate was 160-180. His sinus tachycardia on admission however patient has history of A. fib. Receiving Coordinator on the case and started the patient on Cardizem drip as well as metoprolol 25 mg 3 times a day, also he is on Eliquis 5 mg twice daily which is lower to renal dose 2.5 mg. CBC showing hemoglo-delusion with the WBC within the reference range 9.5, hemoglobin 7.9 which is close to baseline. Platelets normal. Sodium is elevated at 152, creatinine is still up at 3.4 and garment turner has been consulted. And patient is on D5W at 100 mL per hour. Procalcitonin is significantly elevated at 2.6 Sputum culture and blood culture are pending Patient is currently covered with [employer] Review of Systems CONSTITUTIONAL: No fever, no malaise, no fatigue. HEENT: No recent visual problems or hearing problems. Denied any sore throat. CARDIOVASCULAR: No orthopnea, PND, no palpitations, no syncope. PULMONARY: No chest wall tenderness, no hemoptysis. GASTROINTESTINAL: No diarrhea, no nausea, no vomiting, no abdominal pain. Normoactive bowel sounds. NEUROLOGICAL: No headaches, no weakness, no numbness. HEMATOLOGICAL: Denies any bleeding or petechiae. Active Medications Generic Name Dose Route Start Last Admin Trade Name Freq PRN Reason Stop Dose Admin Acetaminophen 650 mg 10/02/20 11:26 Acetaminophen Tab 325 Mg Tab PO Q6HR PRN Mild Pain or Fever > 100.5 Amiodarone HCl 200 mg 10/03/20 09:00 10/03/20 09:58 Amiodarone 200 Mg Tab PEG/G-TUBE 200 mg DAILY WADE Administration Apixaban 5 mg 10/03/20 09:00 10/03/20 09:58 Apixaban 5 Mg Tab PEG/G-TUBE 5 mg BID WADE Administration Aspirin 81 mg 10/03/20 09:00 10/03/20 09:58 Aspirin 81 Mg PEG/G-TUBE 81 mg DAILY WADE Administration Atorvastatin Calcium 40 mg 10/03/20 20:00 Atorvastatin 40 Mg Tab PEG/G-TUBE HS@2000 [facility] Darbepoetin Alex 40 mcg 10/03/20 10:00 Darbepoetin Alex 40 Mcg/0.4 Ml Syringe SQ Q7D WADE Piperacillin Sod/Tazobactam 100 mls @ 25 mls/hr 10/03/20 00:00 10/03/20 11:13 Sod 3.375 gm/ Sodium Chloride IVPB 25 mls/hr Q12H WADE Administration Dextrose/Water 1,000 mls @ 75 mls/hr 10/03/20 09:30 10/03/20 10:35 Dextrose 5%-Water Iv Soln IV 75 mls/hr .[id number] WADE Administration Diltiazem HCl 125 mg/ Sodium 125 mls @ 5 mls/hr 10/03/20 10:00 10/03/20 10:35 Chloride IV 5 mg/hr .Q24H WADE 5 mls/hr Administration 5 MG/HR Magnesium Sulfate/Dextrose 1 100 mls @ 100 mls/hr 10/03/20 11:00 10/03/20 11:13 gm/ IV Solution IVPB 10/03/20 12:59 100 mls/hr Q1H WADE Administration Norepinephrine Bitartrate 8 mg 258 mls @ 8.338 mls/hr 10/03/20 11:00 10/03/20 11:14 / Sodium Chloride IV 0.05 mcg/kg/min .Q24H WADE 8.338 mls/hr Administration Protocol 0.05 MCG/KG/MIN Insulin Aspart 0 unit 10/03/20 07:30 10/03/20 09:01 Insulin Aspart (Novolog) 100 Unit/Ml Vial SQ Not Given ACHS [facility] Protocol Levothyroxine Sodium 50 mcg 10/04/20 06:00 Levothyroxine 50 Mcg Tab PEG/G-TUBE DAILY@0600 [facility] Metoprolol Tartrate 25 mg 10/03/20 10:00 10/03/20 10:35 Metoprolol Tartrate 25 Mg Tab PO 25 mg TID WADE Administration Midodrine 5 mg 10/03/20 12:30 10/03/20 11:12 Midodrine 5 Mg Tab PO 5 mg AC-TID WADE Administration Naloxone HCl 0.2 mg 10/02/20 11:26 Naloxone 0.4 Mg/Ml 1 Ml Vial IV Q2M PRN Opioid Reversal Ondansetron HCl 4 mg 10/02/20 11:26 Ondansetron 4 Mg/2 Ml Vial IVP Q8HR PRN Nausea And Vomiting Pantoprazole Sodium 40 mg 10/03/20 09:00 10/03/20 09:58 Pantoprazole 40 Mg/10 Ml Vial IV 40 mg DAILY WADE Administration Quetiapine Fumarate 25 mg 10/03/20 21:00 Quetiapine 25 Mg Tab PO HS [facility] Tamsulosin HCl 0.4 mg 10/03/20 09:30 10/03/20 09:58 Tamsulosin 0.4 Mg Cap.Er.24h PO 0.4 mg [id number] WADE Administration Objective - Vital Signs Vital signs: Vital Signs Temp 97.9 F 10/03/20 08:00 Pulse 165 H 10/03/20 11:00 Resp 26 H 10/03/20 11:00 BP 4210/03/20 11:00 Pulse Ox 100 10/03/20 11:00 Intake & Output 10/02/20 10/03/20 10/03/20 18:59 06:59 18:59 Intake Total 2190 640 Output Total 250 55 Balance 1940 585 Weight 86.183 kg 86.183 kg 86.183 kg Intake: IV 2140 540 Dextrose 5% in Water 1, 150 000 ml @ 75 mls/hr IV . [id number] WADE Rx#:[id number] Piperacillin-Tazobactam 3 100 .375 gm In Sodium Chloride 0.9% 100 ml @ 25 mls/hr IVPB Q12H WADE Rx# :[id number] Sodium Chloride 0.9% 1, 1040 390 000 ml @ 130 mls/hr IV . Q7H42M STA Rx#:[id number] Sodium Chloride 0.9% 1, 1000 000 ml @ 999 mls/hr IV . Q1H1M ONE Rx#:[id number] Oral 50 100 Output: Urine 0 55 Stool 250 Other: # Voids 0 - Exam -GENERAL: The patient is awake, he is more alert. He is well nourished. HEENT: Pupils are round and equally reacting to light. EOMI. No scleral icterus. No conjunctival pallor. Normocephalic, atraumatic. No pharyngeal erythema. No thyromegaly. CARDIOVASCULAR: S1 and S2 present. No murmurs, rubs, or gallops. -PULMONARY: Chest is clear to auscultation, no wheezing or crackles. Tachypneic. Status post tracheostomy with some secretions -ABDOMEN: Soft, nontender, nondistended, normoactive bowel sounds. No palpable organomegaly. PEG tube is in place, right colostomy. Abdominal midline wound, no purulent discharge but yellow , status post debridement by surgical team with dressing is in place MUSCULOSKELETAL: No joint swelling or deformity. EXTREMITIES: No cyanosis, clubbing, or pedal edema. NEUROLOGICAL: Gross neurological examination did not reveal any focal deficits. SKIN: No rashes. No petechiae - Labs CBC & Chem 7: 10/03/20 03:28 10/03/20 17:33 Labs: Abnormal Lab Results - Last 24 Hours (Table) 10/02/20 10/03/20 10/03/20 Range/Units 12:43 03:28 03:28 RBC 2.83 L (4.30-5.90) m/uL Hgb 7.9 L D (13.0-17.5) gm/dL Hct 26.6 L (39.0-53.0) % MCHC 29.6 L (31.0-37.0) g/dL RDW 17.3 H (11.5-15.5) % Neutrophils # 8.3 H (1.3-7.7) k/uL Lymphocytes # 0.6 L (1.0-4.8) k/uL Sodium 153 H (137-145) mmol/L Potassium 5.4 H (3.5-5.1) mmol/L Chloride 112 H (98-107) mmol/L BUN 107 H* (9-20) mg/dL Creatinine 3.51 H (0.66-1.25) mg/dL Glucose 165 H (74-99) mg/dL POC Glucose (mg/dL) (75-99) mg/dL Plasma Lactic Acid Patrice 3.5 H* (0.7-2.0) mmol/L 10/03/20 Range/Units 11:09 RBC (4.30-5.90) m/uL Hgb (13.0-17.5) gm/dL Hct (39.0-53.0) % MCHC (31.0-37.0) g/dL RDW (11.5-15.5) % Neutrophils # (1.3-7.7) k/uL Lymphocytes # (1.0-4.8) k/uL Sodium (137-145) mmol/L Potassium (3.5-5.1) mmol/L Chloride (98-107) mmol/L BUN (9-20) mg/dL Creatinine (0.66-1.25) mg/dL Glucose (74-99) mg/dL POC Glucose (mg/dL) 157 H (75-99) mg/dL Plasma Lactic Acid Patrice (0.7-2.0) mmol/L Microbiology - Last 24 Hours (Table) 10/03/20 05:35 Sputum Culture - Preliminary Sputum Assessment and Plan Assessment: Acute hypotension , possibly secondary to severe sepsis related to his pneumonia. Possible aspiration pneumonia Acute Hypoxic respiratory failure Acute kidney injury on the top of chronic kidney disease Hypernatremia Elevated lactic acid Elevated troponin, mostly secondary to tachycardia per talent acquisition partner History of triple vessel coronary artery disease status post bypass surgery on 07/18/2020 Atrial fibrillation on Eliquis Recent history of intraperitoneal hemorrhage status post exploratory laparotomy with washout and ileostomy on 08/02/2020 Hypothyroidism Moderate to severe COPD, Remote history of nicotine dependence Chronic kidney disease stage II Hypertension Hyperlipidemia Type 2 diabetes mellitus No code Plan: This is a pleasant 80 years old male who presents with dyspnea and hypotension possible secondary to aspiration pneumonia. Start the patient on Zosyn. Consent sputum for culture. follow-up blood culture.Pulmonary and cardiology consult, continue with IV fluids, continue with oxygen as needed. Continue with Cardizem drip and metoprolol. Continue with Eliquis, renal dose. Burner Hand and surgical team will be consulted as well Labs and medication were reviewed.. Continue same treatment. Continue with symptomatic treatment. Resume home medication if patient able to take them. Monitor lytes and vitals. DVT and GI prophylaxis. Further recommendations depends on the clinical course of the patient DVT prophylaxis: Continue with the Eliquis GI Prophylaxis: Pepcid Prognosis is guarded
[2020-10-03] MEDS: QUEtiapine 25 MG TAB PO SCH (22:47)
[2020-10-03] MEDS: ATORVASTATIN 40 MG TAB PEG/G-TUBE SCH (22:47)
--- NOTE | 2020-10-03 23:35 | CONS ---
CONSULTATION DATE OF SERVICE: 10/03/2020 REASON FOR CONSULTATION: Pneumonia and antibiotic recommendation. HISTORY OF PRESENT ILLNESS: The patient is a 80-year-old male who recently did have a prolonged hospital stay after coronary artery bypass grafting in July of 2020. The patient also had evidence of small bowel ischemia requiring multiple abdominal surgeries. The patient subsequently did have a trach and PEG and was transferred to [facility] for rehabilitation. After the patient was stabilized there, the patient was transferred to a local long-term in [facility]. The patient was noticed yesterday to have an increasing cough, shortness of breath and significant purulent secretions from his tracheostomy which was at the time noted to be hypoxic with oxygen saturations of 80%. Subsequently the patient was rushed to the ER where the patient was resuscitated. The patient was started on a trach collar. He received multiple fluid boluses, initially admitted to the telemetry floor and subsequently to the ICU. The patient on presentation to the hospital was afebrile, and no fever has been recorded. He was noted to have noticed to have elevated white count of 16,000. The patient did have an elevated creatinine of 3.18 with a Procalcitonin of 2.60. The patient did have blood cultures obtained. Sputum has been requested. Chest x-ray right lower lobe infiltrate. He started on Zosyn. Infectious Disease was consulted for further management of antibiotic therapy. Most of the information has been obtained from review of the chart, talking to nursing staff. The patient is not a very good historian. He was also noted to have a necrotic wound on the abdominal wall which has been debrided by the surgeon at the bedside with a wound on the right heel and sacral area. REVIEW OF SYSTEMS: Positive points have been mentioned in the HPI. Rest of the systems are negative. A complete review could not be obtained because of his underlying mental status. PAST MEDICAL HISTORY: Coronary artery disease, angina, COPD, diabetes mellitus, chronic renal insufficiency, hypertension, hyperlipidemia, Jacobs's esophagus. PAST SURGICAL HISTORY: PTCA with stent, coronary artery bypass grafting, bilateral cataract surgery, EGD, tracheostomy, PEG tube placement. SOCIAL HISTORY: Remote history of smoking. Rarely drinks. No drug use. FAMILY HISTORY: No pertinent findings noticed. ALLERGIES: NO KNOWN DRUG ALLERGIES. MEDICATIONS: The patient is currently on Tylenol, DuoNeb, amiodarone, Eliquis, aspirin, Lipitor, Pulmicort, Aranesp, diltiazem, NovoLog, Synthroid, Lopressor, midodrine, Narcan, Zosyn, Seroquel and Flomax. PHYSICAL EXAMINATION: Blood pressure is 81/51 with a pulse of 73, temperature 98. He is 97% on trach collar. General description is an elderly male lying in bed in no distress. No tachypnea or accessory muscle of respiration use. HEENT: Examination shows slight pallor. No scleral icterus. Oral mucous membrane is dry. NECK: Trach site with no significant purulent secretions. LUNGS: Unlabored breathing. Coarse breath sounds bilaterally. No wheeze. HEART: S1, S2. Regular rate and rhythm. ABDOMEN: Soft. Patient did have abdominal wound stitches exposed. Minimal slough tissue. No surrounding redness or any drainage. EXTREMITIES: No edema of the feet. On examination of right heel, he did have a stage III pressure ulcer. Minimal cellulitis. EXAMINATION OF SACRAL AREA: He did have a stage III pressure ulcer. No significant surrounding cellulitis. NEUROLOGIC: The patient is awake, slightly lethargic. Orientation could not be determined. LABS: Hemoglobin is 7.9. White count admission was 16.6. BUN of 106, creatinine 3.40. Procalcitonin was elevated. Butt PCR was negative. DIAGNOSTIC IMPRESSION AND PLAN: 1. Patient admitted to hospital with increasing shortness of breath, hypoxemia with significant purulent secretions from his trach with evidence of right lower lobe infiltrate. Did have elevated white count. Concern for possible Gram-negative pneumonia. 2. Patient with stage III pressure ulcer, sacral area, but no cellulitis. 3. Stage III pressure ulcer, right heel area, but no cellulitis. PLAN: 1. The patient is currently covered with Zosyn 3.375 grams q.12 hours; to continue while waiting for the culture to finalize. 2. Local wound care to the sacral wound with Medihoney followed by moist dressing. 3. Local wound care to the right heel with Medihoney followed by moist dressing. Keep the area off pressure. 4. Will follow clinical condition and culture to further adjust medication if needed. Thank you for this consultation. Will follow this patient along with you. MMODL / IJN: [id number] /
[2020-10-04] MEDS: INSULIN ASPART (NovoLOG) 100 UNIT/ML VIAL SQ SCH ×5 (04:15→23:57)
[2020-10-04] MEDS: PIPERACILLIN-TAZOBACTAM 3.375 GM in SODIUM CHLORIDE 0.9% 100 ML IVPB SCH ×3 (04:16→23:42)
[2020-10-04] MEDS: DILTIAZEM 125 MG in SODIUM CHLORIDE 0.9% 100 ML IV SCH (04:16)
[2020-10-04 04:32] LABS: Anisocytosis Slight; Basophils % (A) 1 %; Eosinophils # (A) 0.2 k/uL (0-0.7); Eosinophils % (A) 3 %; HCT 23.5 % (39.0-53.0); Hypochromasia Marked; Lymphocytes # (A) 0.4 k/uL (1.0-4.8); Lymphocytes % (A) 6 %; MCHC 28.3 g/dL (31.0-37.0); MCV 95.6 fL (80.0-100.0); Mean Platelet Volume 7.9; Monocytes # (A) 0.4 k/uL (0-1.0); Monocytes % (A) 5 %; Neutrophils % (A) 84 %; Platelet Count 282 k/uL (150-450); RBC 2.46 m/uL (4.30-5.90); RDW 16.8 % (11.5-15.5); WBC 7.2 k/uL (3.8-10.6)
[2020-10-04 04:35] LABS: HGB 6.7 gm/dL (13.0-17.5)
[2020-10-04 04:55] LABS: Calcium 8.9 mg/dL (8.4-10.2); Magnesium 2.3 mg/dL (1.6-2.3); Potassium 4.1 mmol/L (3.5-5.1)
[2020-10-04 05:13] LABS: Glucose,Whole Blood 194 mg/dL (75-99)
[2020-10-04] MEDS: LEVOTHYROXINE 50 MCG TAB PEG/G-TUBE SCH (06:25)
[2020-10-04] MEDS ORDERED: FERROUS SULFATE 325 MG TAB PO SCH (07:30)
[2020-10-04 07:32] LABS: Glucose,Whole Blood 199 mg/dL (75-99)
[2020-10-04] MEDS ORDERED: DEXTROSE 5% IN WATER 100 ML with AMIODARONE 150 MG IV ONE (07:34)
[2020-10-04] MEDS ORDERED: AMIODARONE 360 MG in DEXTROSE 5% IN WATER 200 ML IV ONE ×2 (07:34)
--- NOTE | 2020-10-04 07:35 | P.PN ---
Subjective Progress Note Date: 10/04/20 Principal diagnosis: Paroxysmal atrial fibrillation This is a 80-year-old gentleman with coronary artery disease and status post coronary artery bypass grafting as well as chronic hypoxic respiratory failure as well as paroxysmal atrial fibrillation who was brought from [facility] to the hospital because of increasing shortness of breath and possible underlying pneumonia likely to be aspiration pneumonia. The patient was seen today for 2020. He has been in and out atrial fibrillation. Beside that the pressure has been marginal on the Cardizem IV. Because of that I am going to DC the Cardizem IV and hold amiodarone by mouth and start the patient on amiodarone IV. He was on oral anticoagulation which is on hold at this point because of the low hemoglobin requiring blood transfusion. Objective - Vital Signs Vital signs: Vital Signs Temp 98.2 F 10/04/20 04:00 Pulse 122 H 10/04/20 07:00 Resp 42 H 10/04/20 07:00 BP 84/56 10/04/20 07:00 Pulse Ox 99 10/04/20 07:00 Intake & Output 10/03/20 10/04/20 10/04/20 18:59 06:59 18:59 Intake Total 2677.639 1370 100 Output Total 280 755 Balance 2397.639 615 100 Weight 86.183 kg 75.5 kg Intake: IV 2365 1250 100 Dextrose 5% in Water 1, 675 1150 100 000 ml @ 75 mls/hr IV . [id number] [facility] Rx#:[id number] Magnesium Sulfate-D5w Pmx 200 1 gm In Dextrose/Water 1 100ml.bag @ 100 mls/hr IVPB Q1H [facility] Rx#: [id number] Piperacillin-Tazobactam 3 100 100 .375 gm In Sodium Chloride 0.9% 100 ml @ 25 mls/hr IVPB Q12H [facility] Rx# :[id number] Sodium Chloride 0.9% 1, 390 000 ml @ 130 mls/hr IV . Q7H42M [facility] Rx#:[id number] Sodium Chloride 0.9% 1, 1000 000 ml @ 999 mls/hr IV . Q1H1M ONE Rx#:[id number] Intake, IV Titration 2.639 0 Amount Diltiazem 125 mg In 2.5 0 Sodium Chloride 0.9% 100 ml @ 5 MG/HR 5 mls/hr IV .Q24H [facility] Rx#:[id number] Norepinephrine 8 mg In 0.139 Sodium Chloride 0.9% 250 ml @ 0.05 MCG/KG/MIN 8. 338 mls/hr IV .Q24H [facility] Rx#:[id number] Oral 100 Tube Feeding 180 90 Other 30 30 Output: Urine 280 505 Stool 250 Other: Voiding Method Indwelling Catheter Indwelling Catheter - Constitutional General appearance: Present: no acute distress - Respiratory Respiratory: bilateral: diminished - Cardiovascular Heart sounds: normal: S1, S2 - Labs CBC & Chem 7: 10/04/20 04:07 10/04/20 04:07 Labs: Abnormal Lab Results - Last 24 Hours (Table) 10/03/20 10/03/20 10/03/20 Range/Units 03:28 03:28 11:09 RBC (4.30-5.90) m/uL Hgb (13.0-17.5) gm/dL Hct (39.0-53.0) % MCHC (31.0-37.0) g/dL RDW (11.5-15.5) % Lymphocytes # (1.0-4.8) k/uL Sodium (137-145) mmol/L Chloride (98-107) mmol/L BUN (9-20) mg/dL Creatinine (0.66-1.25) mg/dL Glucose (74-99) mg/dL POC Glucose (mg/dL) 157 H (75-99) mg/dL Iron 12 L (65-175) ug/dL TIBC 214 L (228-460) ug/dL % Saturation 5.61 L (15.00-50.00) Ferritin 1272.7 H (22.0-322.0) ng/mL Procalcitonin 2.60 H (0.02-0.09) ng/mL 10/03/20 10/03/20 10/04/20 Range/Units 16:24 17:33 04:07 RBC 2.46 L (4.30-5.90) m/uL Hgb 6.7 L* (13.0-17.5) gm/dL Hct 23.5 L (39.0-53.0) % MCHC 28.3 L (31.0-37.0) g/dL RDW 16.8 H (11.5-15.5) % Lymphocytes # 0.4 L (1.0-4.8) k/uL Sodium 152 H (137-145) mmol/L Chloride 113 H (98-107) mmol/L BUN 106 H* (9-20) mg/dL Creatinine 3.40 H (0.66-1.25) mg/dL Glucose 192 H (74-99) mg/dL POC Glucose (mg/dL) 144 H (75-99) mg/dL Iron (65-175) ug/dL TIBC (228-460) ug/dL % Saturation (15.00-50.00) Ferritin (22.0-322.0) ng/mL Procalcitonin (0.02-0.09) ng/mL 10/04/20 10/04/20 10/04/20 Range/Units 04:07 05:12 07:31 RBC (4.30-5.90) m/uL Hgb (13.0-17.5) gm/dL Hct (39.0-53.0) % MCHC (31.0-37.0) g/dL RDW (11.5-15.5) % Lymphocytes # (1.0-4.8) k/uL Sodium 148 H (137-145) mmol/L Chloride 111 H (98-107) mmol/L BUN 108 H* (9-20) mg/dL Creatinine 3.42 H (0.66-1.25) mg/dL Glucose 216 H (74-99) mg/dL POC Glucose (mg/dL) 194 H 199 H (75-99) mg/dL Iron (65-175) ug/dL TIBC (228-460) ug/dL % Saturation (15.00-50.00) Ferritin (22.0-322.0) ng/mL Procalcitonin (0.02-0.09) ng/mL Microbiology - Last 24 Hours (Table) 10/03/20 05:35 Gram Stain - Preliminary Sputum Sputum Culture - Preliminary 10/02/20 09:51 Blood Culture - Preliminary Blood No Growth after 24 hours Assessment and Plan Assessment: Assessment #1 pneumonia/possible aspiration pneumonia/sepsis #2 marginal E low blood pressure #3 sinus tachycardia #4 mildly elevated troponin #5 paroxysmal atrial fibrillation #6 coronary artery disease and status post CABG #7 chronic hypoxic respiratory failure #8 acute on chronic renal failure Plan #1 consider medical treatment for the mildly abnormal troponin which is likely secondary to low blood pressure and tachycardia #2 continue holding oral anticoagulation #3 DC Cardizem and start the patient amiodarone IV #4 continue monitor the blood pressure #5 monitor the kidney function and electrolytes
[2020-10-04] MEDS: IPRATROPIUM-ALBUTEROL 3 ML NEB INHALATION SCH ×4 (08:00→19:49)
[2020-10-04] MEDS: BUDESONIDE 1 MG/2 ML NEBU INHALATION SCH ×2 (08:01→19:49)
[2020-10-04] MEDS: METOPROLOL TARTRATE 25 MG TAB PO SCH ×3 (08:44→23:43)
[2020-10-04] MEDS: TAMSULOSIN 0.4 MG CAP.ER.24H PO SCH (08:44)
[2020-10-04] MEDS: MIDODRINE 5 MG TAB PO SCH ×3 (08:45→16:50)
[2020-10-04] MEDS: PANTOPRAZOLE 40 MG/10 ML VIAL IV SCH ×2 (08:45→23:42)
[2020-10-04] MEDS ORDERED: APIXABAN 2.5 MG TABLET PEG/G-TUBE SCH (09:00)
[2020-10-04] MEDS: ACETAMINOPHEN TAB 325 MG TAB PO PRN (09:06)
--- NOTE | 2020-10-04 09:18 | XR ---
EXAMINATION TYPE: XR chest 1V portable DATE OF EXAM: 10/04/2020 COMPARISON: 10/03/2020 HISTORY: Shortness of breath TECHNIQUE: Single frontal view of the chest is obtained. FINDINGS: Postoperative change and tracheostomy tube. Bilateral infiltrate and small effusion. Hyper inflation suggests COPD and there is a large area of bullous involving the left upper lobe. IMPRESSION: 1. COPD with bilateral infiltrate and small bilateral effusion.
--- NOTE | 2020-10-04 09:19 | P.PN ---
Subjective Patient is seen in follow-up for acute kidney injury on chronic kidney disease. Patient has chronic kidney disease stage IIIA with baseline creatinine in the range of 1.2-1.5. Creatinine stable at 3.42 today. Sodium level down to 148. Hemoglobin 6.7 and he is scheduled to receive a unit of blood. He is receiving tube feeding. Currently on 35% FiO2. Now on amiodarone drip for A. fib. Vital signs are stable. General: The patient appeared well nourished and normally developed. HEENT: Tracheostomy noted. LUNGS:Breath sounds decreased. HEART: Irregular rate and rhythm. ABDOMEN: Soft, nondistended. EXTREMITITES: No edema. Objective - Vital Signs Vital signs: Vital Signs Temp 97 F L 10/04/20 08:00 Pulse 74 10/04/20 09:00 Resp 32 H 10/04/20 09:00 BP 81/52 10/04/20 09:00 Pulse Ox 99 10/04/20 09:00 Intake & Output 10/03/20 10/04/20 10/04/20 18:59 06:59 18:59 Intake Total 2677.639 1370 330 Output Total 280 755 Balance 2397.639 615 330 Weight 86.183 kg 75.5 kg Intake: IV 2365 1250 100 Dextrose 5% in Water 1, 675 1150 100 000 ml @ 75 mls/hr IV . [id number] [facility] Rx#:[id number] Magnesium Sulfate-D5w Pmx 200 1 gm In Dextrose/Water 1 100ml.bag @ 100 mls/hr IVPB Q1H [facility] Rx#: [id number] Piperacillin-Tazobactam 3 100 100 .375 gm In Sodium Chloride 0.9% 100 ml @ 25 mls/hr IVPB Q12H [facility] Rx# :[id number] Sodium Chloride 0.9% 1, 390 000 ml @ 130 mls/hr IV . Q7H42M [facility] Rx#:[id number] Sodium Chloride 0.9% 1, 1000 000 ml @ 999 mls/hr IV . Q1H1M ONE Rx#:[id number] Intake, IV Titration 2.639 0 Amount Diltiazem 125 mg In 2.5 0 Sodium Chloride 0.9% 100 ml @ 5 MG/HR 5 mls/hr IV .Q24H [facility] Rx#:[id number] Norepinephrine 8 mg In 0.139 Sodium Chloride 0.9% 250 ml @ 0.05 MCG/KG/MIN 8. 338 mls/hr IV .Q24H [facility] Rx#:[id number] Oral 100 Tube Feeding 180 90 130 Blood Product 0 Rc Pheresis 2 As3 Unit 0 [id number] Other 30 30 100 Output: Urine 280 505 Stool 250 Other: Voiding Method Indwelling Catheter Indwelling Catheter - Labs CBC & Chem 7: 10/04/20 04:07 10/04/20 04:07 Labs: Abnormal Lab Results - Last 24 Hours (Table) 10/03/20 10/03/20 10/03/20 Range/Units 03:28 03:28 11:09 RBC (4.30-5.90) m/uL Hgb (13.0-17.5) gm/dL Hct (39.0-53.0) % MCHC (31.0-37.0) g/dL RDW (11.5-15.5) % Lymphocytes # (1.0-4.8) k/uL Sodium (137-145) mmol/L Chloride (98-107) mmol/L BUN (9-20) mg/dL Creatinine (0.66-1.25) mg/dL Glucose (74-99) mg/dL POC Glucose (mg/dL) 157 H (75-99) mg/dL Iron 12 L (65-175) ug/dL TIBC 214 L (228-460) ug/dL % Saturation 5.61 L (15.00-50.00) Ferritin 1272.7 H (22.0-322.0) ng/mL Procalcitonin 2.60 H (0.02-0.09) ng/mL Crossmatch 10/03/20 10/03/20 10/04/20 Range/Units 16:24 17:33 04:07 RBC 2.46 L (4.30-5.90) m/uL Hgb 6.7 L* (13.0-17.5) gm/dL Hct 23.5 L (39.0-53.0) % MCHC 28.3 L (31.0-37.0) g/dL RDW 16.8 H (11.5-15.5) % Lymphocytes # 0.4 L (1.0-4.8) k/uL Sodium 152 H (137-145) mmol/L Chloride 113 H (98-107) mmol/L BUN 106 H* (9-20) mg/dL Creatinine 3.40 H (0.66-1.25) mg/dL Glucose 192 H (74-99) mg/dL POC Glucose (mg/dL) 144 H (75-99) mg/dL Iron (65-175) ug/dL TIBC (228-460) ug/dL % Saturation (15.00-50.00) Ferritin (22.0-322.0) ng/mL Procalcitonin (0.02-0.09) ng/mL Crossmatch 10/04/20 10/04/20 10/04/20 Range/Units 04:07 05:12 06:56 RBC (4.30-5.90) m/uL Hgb (13.0-17.5) gm/dL Hct (39.0-53.0) % MCHC (31.0-37.0) g/dL RDW (11.5-15.5) % Lymphocytes # (1.0-4.8) k/uL Sodium 148 H (137-145) mmol/L Chloride 111 H (98-107) mmol/L BUN 108 H* (9-20) mg/dL Creatinine 3.42 H (0.66-1.25) mg/dL Glucose 216 H (74-99) mg/dL POC Glucose (mg/dL) 194 H (75-99) mg/dL Iron (65-175) ug/dL TIBC (228-460) ug/dL % Saturation (15.00-50.00) Ferritin (22.0-322.0) ng/mL Procalcitonin (0.02-0.09) ng/mL Crossmatch See Detail 10/04/20 Range/Units 07:31 RBC (4.30-5.90) m/uL Hgb (13.0-17.5) gm/dL Hct (39.0-53.0) % MCHC (31.0-37.0) g/dL RDW (11.5-15.5) % Lymphocytes # (1.0-4.8) k/uL Sodium (137-145) mmol/L Chloride (98-107) mmol/L BUN (9-20) mg/dL Creatinine (0.66-1.25) mg/dL Glucose (74-99) mg/dL POC Glucose (mg/dL) 199 H (75-99) mg/dL Iron (65-175) ug/dL TIBC (228-460) ug/dL % Saturation (15.00-50.00) Ferritin (22.0-322.0) ng/mL Procalcitonin (0.02-0.09) ng/mL Crossmatch Microbiology - Last 24 Hours (Table) 10/03/20 05:35 Gram Stain - Preliminary Sputum Sputum Culture - Preliminary 10/02/20 09:51 Blood Culture - Preliminary Blood No Growth after 24 hours Assessment and Plan Plan: Assessment: 1. Acute kidney injury secondary to ATN secondary to hypotension and hemodynamic instability. Creatinine stable at 3.42 today. No hydronephrosis noted on kidney ultrasound. 2. Chronic kidney disease stage III with baseline creatinine 1.2-1.5 secondary to nephrosclerosis. 3. A. fib with RVR. Maintained on amiodarone drip. 4. Hypernatremia secondary to lack of oral water intake. Improving with D5W. 5. Mild hyperkalemia secondary to acute kidney injury. Resolved. 6. Diabetes mellitus. 7. Anemia of chronic kidney disease. Maintained on Aranesp. Iron deficiency noted. Scheduled to receive a unit of blood today. Plan: Stop D5W. Add free water flushes 300 mL every 6 hours with tube feeding. Continue to monitor renal function and urine output. Avoid nephrotoxins. IV iron 3 doses. First dose today. Swallow eval pending.
[2020-10-04] MEDS: SODIUM FERRIC GLUCONAT-SUCROSE 125 MG in SODIUM CHLORIDE 0.9% 100 ML IVPB SCH (10:20)
[2020-10-04] MEDS: NOREPINEPHRINE 4 MG in SODIUM CHLORIDE 0.9% 250 ML IV SCH (10:46)
[2020-10-04 12:01] LABS: Glucose,Whole Blood 231 mg/dL (75-99)
[2020-10-04] MEDS ORDERED: LIDOCAINE 1% INJ 10MG/ML (20 ML MDV) ONE (12:46)
--- NOTE | 2020-10-04 13:04 | P.PN ---
Subjective Progress Note Date: 10/04/20 CHIEF COMPLAINT: Respiratory distress HISTORY OF PRESENT ILLNESS: Patient is being followed in regards to his abdominal wound at incision site. He is in the ICU. He had been having issues with hypotension he received fluid boluses. He has not required to be placed on Levophed. He is on antibiotics for her pneumonia. Patient has been having episodes of atrial fibrillation. Cardiology is switched him over to IV amiodarone. Anticoagulation on hold due to patient's anemia. Hemoglobin 6.7. He is receiving a unit of blood and was given a dose of IV iron.. Afebrile. White count normalized at 7.2 Hgb 6.7 creatinine 3.42 iron 12 sodium 148 patient has PEG tube feedings for nutrition support. Patient is on trach collar PHYSICAL EXAM: VITAL SIGNS: Reviewed. GENERAL: Well-developed in no acute distress. HEENT: No sclera icterus. Extraocular movements grossly intact. Moist buccal mucosa. Head is atraumatic, normocephalic. ABDOMEN: Soft. Nondistended. Nontender. Dressing clean dry and intact. Patient has a yellowish liquidy stool coming through the ileostomy. NEUROLOGIC: Alert and oriented. Cranial nerves II through XII grossly intact. ASSESSMENT: 1. Abdominal wound at surgical incision site. Eschar tissue removed at bedside by Dr. Dempsey 2. History of ischemic small bowel with evidence of pneumatosis status post small bowel resection on 07/24/2020. 3. History of intraperitoneal hemorrhage status post exploratory laparotomy, washout of peritoneal cavity and ileostomy with small bowel resection on 08/02/2020 4. History of CABG in July 2020 5. Acute hypoxic respiratory failure secondary to pneumonia 6. Sepsis secondary to pneumonia involving the left lower lobe 7. Acute kidney injury 8. Anemia: With known chronic kidney disease and iron deficiency PLAN: -Continue wound care -Continue supportive care -Continue ICU management -No surgical intervention planned. Physician Scarf Gluer note has been reviewed by physician. Signing provider agrees with the documented findings, assessment, and plan of care. Objective - Vital Signs Vital signs: Vital Signs Temp 96.7 F L 10/04/20 12:00 Pulse 65 10/04/20 12:00 Resp 24 10/04/20 12:00 BP 89/55 10/04/20 12:00 Pulse Ox 98 10/04/20 12:00 Intake & Output 10/03/20 10/04/2021 18:59 06:59 18:59 Intake Total 2677.639 1370 1238.781 Output Total 431 446 4868 Balance 2397.639 615 -1641.219 Weight 86.183 kg 75.5 kg Intake: IV 2365 1250 200 Dextrose 5% in Water 1, 675 1150 100 000 ml @ 75 mls/hr IV . [id number] [facility] Rx#:[id number] Magnesium Sulfate-D5w Pmx 200 1 gm In Dextrose/Water 1 100ml.bag @ 100 mls/hr IVPB Q1H [facility] Rx#: [id number] Piperacillin-Tazobactam 3 100 100 100 .375 gm In Sodium Chloride 0.9% 100 ml @ 25 mls/hr IVPB Q12H [facility] Rx# :[id number] Sodium Chloride 0.9% 1, 390 000 ml @ 130 mls/hr IV . Q7H42M [facility] Rx#:[id number] Sodium Chloride 0.9% 1, 1000 000 ml @ 999 mls/hr IV . Q1H1M [facility] Rx#:[id number] Intake, IV Titration 2.639 0 102.781 Amount Diltiazem 125 mg In 2.5 0 Sodium Chloride 0.9% 100 ml @ 5 MG/HR 5 mls/hr IV .Q24H [facility] Rx#:[id number] Norepinephrine 4 mg In 2.781 Sodium Chloride 0.9% 250 ml @ 0.05 MCG/KG/MIN 14. 383 mls/hr IV .[id number] [facility] Rx#:[id number] Norepinephrine 8 mg In 0.139 Sodium Chloride 0.9% 250 ml @ 0.05 MCG/KG/MIN 8. 338 mls/hr IV .Q24H [facility] Rx#:[id number] Sodium Ferric Gluconat- 100 Sucrose 125 mg In Sodium Chloride 0.9% 100 ml @ 100 mls/hr IVPB DAILY [facility] Rx#:[id number] Oral 100 Tube Feeding 180 90 260 Blood Product 276 Rc Pheresis 2 As3 Unit 276 [id number] Other 30 30 400 Output: Urine 280 505 255 Stool 250 2625 Other: Voiding Method Indwelling Catheter Indwelling Catheter Indwelling Catheter - Labs CBC & Chem 7: 10/04/20 04:07 02/17/21 04:07 Labs: Abnormal Lab Results - Last 24 Hours (Table) 10/03/20 10/03/20 10/03/20 Range/Units 03:28 03:28 16:24 RBC (4.30-5.90) m/uL Hgb (13.0-17.5) gm/dL Hct (39.0-53.0) % MCHC (31.0-37.0) g/dL RDW (11.5-15.5) % Lymphocytes # (1.0-4.8) k/uL Sodium (137-145) mmol/L Chloride (98-107) mmol/L BUN (9-20) mg/dL Creatinine (0.66-1.25) mg/dL Glucose (74-99) mg/dL POC Glucose (mg/dL) 144 H (75-99) mg/dL Iron 12 L (65-175) ug/dL TIBC 214 L (228-460) ug/dL % Saturation 5.61 L (15.00-50.00) Ferritin 1272.7 H (22.0-322.0) ng/mL Procalcitonin 2.60 H (0.02-0.09) ng/mL Crossmatch 10/03/20 10/04/20 10/04/20 Range/Units 17:33 04:07 04:07 RBC 2.46 L (4.30-5.90) m/uL Hgb 6.7 L* (13.0-17.5) gm/dL Hct 23.5 L (39.0-53.0) % MCHC 28.3 L (31.0-37.0) g/dL RDW 16.8 H (11.5-15.5) % Lymphocytes # 0.4 L (1.0-4.8) k/uL Sodium 152 H 148 H (137-145) mmol/L Chloride 113 H 111 H (98-107) mmol/L BUN 106 H* 108 H* (9-20) mg/dL Creatinine 3.40 H 3.42 H (0.66-1.25) mg/dL Glucose 192 H 216 H (74-99) mg/dL POC Glucose (mg/dL) (75-99) mg/dL Iron (65-175) ug/dL TIBC (228-460) ug/dL % Saturation (15.00-50.00) Ferritin (22.0-322.0) ng/mL Procalcitonin (0.02-0.09) ng/mL Crossmatch 10/04/20 10/04/20 10/04/20 Range/Units 05:12 06:56 07:31 RBC (4.30-5.90) m/uL Hgb (13.0-17.5) gm/dL Hct (39.0-53.0) % MCHC (31.0-37.0) g/dL RDW (11.5-15.5) % Lymphocytes # (1.0-4.8) k/uL Sodium (137-145) mmol/L Chloride (98-107) mmol/L BUN (9-20) mg/dL Creatinine (0.66-1.25) mg/dL Glucose (74-99) mg/dL POC Glucose (mg/dL) 194 H 199 H (75-99) mg/dL Iron (65-175) ug/dL TIBC (228-460) ug/dL % Saturation (15.00-50.00) Ferritin (22.0-322.0) ng/mL Procalcitonin (0.02-0.09) ng/mL Crossmatch See Detail 10/04/20 Range/Units 12:00 RBC (4.30-5.90) m/uL Hgb (13.0-17.5) gm/dL Hct (39.0-53.0) % MCHC (31.0-37.0) g/dL RDW (11.5-15.5) % Lymphocytes # (1.0-4.8) k/uL Sodium (137-145) mmol/L Chloride (98-107) mmol/L BUN (9-20) mg/dL Creatinine (0.66-1.25) mg/dL Glucose (74-99) mg/dL POC Glucose (mg/dL) 231 H (75-99) mg/dL Iron (65-175) ug/dL TIBC (228-460) ug/dL % Saturation (15.00-50.00) Ferritin (22.0-322.0) ng/mL Procalcitonin (0.02-0.09) ng/mL Crossmatch Microbiology - Last 24 Hours (Table) 10/02/20 09:51 Blood Culture - Preliminary Blood No Growth after 48 hours 10/03/20 05:35 Gram Stain - Preliminary Sputum Sputum Culture - Preliminary Presumptive Staph aureus
[2020-10-04] MEDS ORDERED: LIDOCAINE 1% INJ 10MG/ML (20 ML MDV) SQ ONE (13:05)
[2020-10-04] MEDS ORDERED: VANCOMYCIN IV PER PHARMACY 1 EACH MISC MISCELLANE PRN (13:27)
--- NOTE | 2020-10-04 13:27 | P.PN ---
Subjective Progress Note Date: 10/04/20 Principal diagnosis: Acute on chronic hypoxic respiratory failure secondary to left lower lobe pneumonia and sepsis. This is a 80-year-old white male familiar to my service, in July 2020, patient underwent elective coronary artery bypass grafting. He had a very complicated postoperative course, patient required multiple abdominal surgeries, multiple intubations, extubations, and the intubations, patient was a failure to wean, and he had multiple abdominal surgeries during his stay. Patient underwent tracheostomy, PEG tube placement, and we were able to transfer the pa esternt to an extended care facility. He was at the extended care facility until about a week ago, his tracheostomy was capped, and he was transferred to [facility] in [facility]. Patient has been noticing increased cough, increased shortness of breath, and significant purulent secretions from the tracheostomy tube when uncapped. O2 saturation was dipping down into the 50s and in the ER he had a saturation of 86% on 15 L high flow nasal cannula. Patient was also noted to have leukocytosis, hemoglobin was low, his troponin was slightly elevated, blood pressure was noted to be marginally low, patient was admitted initially to the cardiac floor, however supposedly he was noted to have blood pressure in the 70s systolic. Patient did receive multiple fluid boluses in the ER over 3 L were given, and we were notified about the patient on the floor having low blood pressure, I recommended transferred to the ICU planning to start the patient on norepinephrine. However over the last 12 hours in the ICU, his blood pressure has been stable patient did not require placement on any pressors. His beta blockers had been on hold because of low blood pressure, and he is maintained on amiodarone. His pro-calcitonin level was noted to be 2.60. And his chest x-ray showed left lower lobe atelectasis, suspect left lower lobe pneumonia. And he had small pleural effusions noted more so than right. Going back to his previous hospital admission, patient did have left lower lobe pneumonia and he did have left pleural effusion requiring thoracentesis once or twice. Cultures previously from the sputum were positive for Pseudomonas fluorescence/putida, sensitive to Zosyn and Levaquin and meropenem. Also sensitive to cefepime. Considering the patient's presentation with hypotension, shortness of breath, cough, abnormal chest x-ray, hypoxia, and considering his recent clinical history, we were asked to see him on consultation Patient was reevaluated today on 10/04/2020, patient remains in the ICU, he is on trach collar a 55%, patient went into atrial fibrillation with RVR yesterday, and he went on amiodarone at 1 mg/m, he also received 1 unit of packed RBCs for hemoglobin of 6.7, patient converted to sinus rhythm. Remains in sinus rhythm, patient is receiving tube feeds/Nepro at 65/65. He is also receiving free water. Chest x-ray is showing minimal improvement in the left lower lobe consolidation, clinically the patient is feeling better, he is empirically on antibiotics for healthcare acquired pneumonia/Zosyn. Previous sputum cultures were positive for Pseudomonas, hence his Zosyn was chosen as the drug of choice. CBC today showed WBC 7.2 hemoglobin 6.7, hence a unit of blood was given. Electrolytes showed low sodium but improving today is 148 from 150 to yesterday. BUN is 108 creatinine 3.4 to about the same as yesterday. Objective - Vital Signs Vital signs: Vital Signs Temp 96.7 F L 10/04/20 12:00 Pulse 70 10/04/20 13:00 Resp 34 H 10/04/20 13:00 BP 97/49 10/04/20 13:00 Pulse Ox 99 10/04/20 13:00 Intake & Output 10/03/20 10/04/20 10/04/20 18:59 06:59 18:59 Intake Total 2677.639 1370 1238.781 Output Total 436 252 5372 Balance 2397.639 615 -1661.219 Weight 86.183 kg 75.5 kg Intake: IV 2365 1250 200 Dextrose 5% in Water 1, 675 1150 100 000 ml @ 75 mls/hr IV . [id number] WADE Rx#:[id number] Magnesium Sulfate-D5w Pmx 200 1 gm In Dextrose/Water 1 100ml.bag @ 100 mls/hr IVPB Q1H WADE Rx#: [id number] Piperacillin-Tazobactam 3 100 100 100 .375 gm In Sodium Chloride 0.9% 100 ml @ 25 mls/hr IVPB Q12H WADE Rx# :[id number] Sodium Chloride 0.9% 1, 390 000 ml @ 130 mls/hr IV . [id number] STA Rx#:[id number] Sodium Chloride 0.9% 1, 1000 000 ml @ 999 mls/hr IV . Q1H1M ONE Rx#:[id number] Intake, IV Titration 2.639 0 102.781 Amount Diltiazem 125 mg In 2.5 0 Sodium Chloride 0.9% 100 ml @ 5 MG/HR 5 mls/hr IV .Q24H WADE Rx#:[id number] Norepinephrine 4 mg In 2.781 Sodium Chloride 0.9% 250 ml @ 0.05 MCG/KG/MIN 14. 383 mls/hr IV .[id number] WADE Rx#:[id number] Norepinephrine 8 mg In 0.139 Sodium Chloride 0.9% 250 ml @ 0.05 MCG/KG/MIN 8. 338 mls/hr IV .Q24H WADE Rx#:[id number] Sodium Ferric Gluconat- 100 Sucrose 125 mg In Sodium Chloride 0.9% 100 ml @ 100 mls/hr IVPB DAILY WADE Rx#:[id number] Oral 100 Tube Feeding 180 90 260 Blood Product 276 Rc Pheresis 2 As3 Unit 276 [id number] Other 30 30 400 Output: Urine 280 505 275 Stool 250 2625 Other: Voiding Method Indwelling Catheter Indwelling Catheter Indwelling Catheter - Exam Physical Exam: Revealed 80-year-old white male pleasant, on trach collar at 55%. HEENT:[Neck is supple.] [No neck masses.] [No thyromegaly.] [No JVD.] Chest: Symmetrical chest expansion, crackles and rhonchi noted bilaterally especially at the left base Cardiac Exam: [Normal S1 and S2, no S3 gallop, no murmur.] Abdomen: [Soft, nontender, no megaly, no rebound, no guarding, normal bowel sounds.] Surgical scar is noted in the mid abdomen, colostomy in the right lower quadrant is noted. Sutures in the surgical scar noted. Extremities: [No clubbing, 1+ bipedal edema, no cyanosis.] Neurological Exam: Alert and oriented 3. [No focal neurologic deficit.] Psychiatric: Normal mood, affect and normal mental status examination. Skin: No rashes, surgical scar noted in the abdomen, some minimal drainage noted, clean dressing sedated - Labs CBC & Chem 7: 10/04/20 04:07 10/04/20 04:07 Labs: Abnormal Lab Results - Last 24 Hours (Table) 10/03/20 10/03/20 10/03/20 Range/Units 03:28 16:24 17:33 RBC (4.30-5.90) m/uL Hgb (13.0-17.5) gm/dL Hct (39.0-53.0) % MCHC (31.0-37.0) g/dL RDW (11.5-15.5) % Lymphocytes # (1.0-4.8) k/uL Sodium 152 H (137-145) mmol/L Chloride 113 H (98-107) mmol/L BUN 106 H* (9-20) mg/dL Creatinine 3.40 H (0.66-1.25) mg/dL Glucose 192 H (74-99) mg/dL POC Glucose (mg/dL) 144 H (75-99) mg/dL Iron 12 L (65-175) ug/dL TIBC 214 L (228-460) ug/dL % Saturation 5.61 L (15.00-50.00) Ferritin 1272.7 H (22.0-322.0) ng/mL Crossmatch 10/04/20 10/04/20 10/04/20 Range/Units 04:07 04:07 05:12 RBC 2.46 L (4.30-5.90) m/uL Hgb 6.7 L* (13.0-17.5) gm/dL Hct 23.5 L (39.0-53.0) % MCHC 28.3 L (31.0-37.0) g/dL RDW 16.8 H (11.5-15.5) % Lymphocytes # 0.4 L (1.0-4.8) k/uL Sodium 148 H (137-145) mmol/L Chloride 111 H (98-107) mmol/L BUN 108 H* (9-20) mg/dL Creatinine 3.42 H (0.66-1.25) mg/dL Glucose 216 H (74-99) mg/dL POC Glucose (mg/dL) 194 H (75-99) mg/dL Iron (65-175) ug/dL TIBC (228-460) ug/dL % Saturation (15.00-50.00) Ferritin (22.0-322.0) ng/mL Crossmatch 10/04/20 10/04/20 10/04/20 Range/Units 06:56 07:31 12:00 RBC (4.30-5.90) m/uL Hgb (13.0-17.5) gm/dL Hct (39.0-53.0) % MCHC (31.0-37.0) g/dL RDW (11.5-15.5) % Lymphocytes # (1.0-4.8) k/uL Sodium (137-145) mmol/L Chloride (98-107) mmol/L BUN (9-20) mg/dL Creatinine (0.66-1.25) mg/dL Glucose (74-99) mg/dL POC Glucose (mg/dL) 199 H 231 H (75-99) mg/dL Iron (65-175) ug/dL TIBC (228-460) ug/dL % Saturation (15.00-50.00) Ferritin (22.0-322.0) ng/mL Crossmatch See Detail Microbiology - Last 24 Hours (Table) 10/02/20 09:51 Blood Culture - Preliminary Blood No Growth after 48 hours 10/03/20 05:35 Gram Stain - Preliminary Sputum Sputum Culture - Preliminary Presumptive Staph aureus Assessment and Plan Assessment: Impression: Hypotension secondary to sepsis secondary to left lower lobe pneumonia Acute on chronic hypoxic respiratory failure secondary to pneumonia and underlying COPD. Acute left lower lobe pneumonia, healthcare acquired however, based on the initial sputum report, we may be dealing with a staph aureus pneumonia, and it that is MRSA the patient will be placed on vancomycin which I will start empirically now. Sepsis secondary to pneumonia involving the left lower lobe. Acute on chronic kidney injury secondary to sepsis. Moderate severe COPD. History of triple-vessel coronary artery disease, bypass surgery on 07/18/2020 with multiple postoperative complications History of tracheostomy mostly because of failure to wean. Benign essential hypertension. Type 2 diabetes. Dyslipidemia. Chronic atrial fibrillation. History of hypothyroidism. History of ileostomy on 08/02/2020. Chronic anemia, patient will receive a unit of packed RBCs today, hemoglobin is 6.7. Doubt to GI blood losses Recommendation: Continue present supportive care measures. Antibiotics in the form of vancomycin and Zosyn, empirically. Continue cardiac medications. GI and DVT prophylaxis. Continue eliquis. And patient is on Pepcid. Continue patient on trach collar Titrate oxygen accordingly. Continue bronchodilators. Resume amiodarone. Cardiology to address his atrial fibrillation with RVR, presently on amiodarone. Continue midodrine We'll continue to follow. Prognosis remains guarded, patient is critically ill. Will likely arrange for a PICC line on this patient. Patient wished DO NOT RESUSCITATE CODE STATUS upon presentation Critical care time is over 30 minutes Time with Patient: Greater than 30
[2020-10-04] MEDS: LINEZOLID 600 MG in DEXTROSE/WATER 1 300ML.BAG IVPB SCH ×2 (13:38→23:43)
--- NOTE | 2020-10-04 13:45 | XR ---
EXAMINATION TYPE: XR chest 1V portable DATE OF EXAM: 10/04/2020 COMPARISON: 10/04/2020 HISTORY: PICC line placement TECHNIQUE: Single frontal view of the chest is obtained. FINDINGS: Right-sided PICC line seen with tip coiled back upon itself. Postsurgical change and trach eostomy tube noted. Diffuse COPD with basilar infiltrate. IMPRESSION: 1. Stable COPD and basilar infiltrates. Catheter is coiled upon itself be repositioned.
--- NOTE | 2020-10-04 13:46 | XR ---
EXAMINATION TYPE: XR chest 1V portable DATE OF EXAM: 10/04/2020 COMPARISON: 10/04/2020 HISTORY: PICC line placement TECHNIQUE: Single frontal view of the chest is obtained. FINDINGS: Tip of the catheter appears at the level of the subclavian vein. Diffuse emphysematous susan nges seen with by basilar infiltrate and small effusion. Tracheostomy tube stable. Postsurgical ross es noted. IMPRESSION: 1. COPD and bibasilar infiltrate with pleural effusion stable. 2. PICC line seen with the tip at the level of the subclavian vein.
[2020-10-04] MEDS: AMIODARONE 450 MG in DEXTROSE 5% IN WATER 250 ML IV SCH ×2 (14:00)
--- NOTE | 2020-10-04 14:01 | IR ---
PICC LINE PLACEMENT: HISTORY: Infection requiring long-term antibiotic therapy PROCEDURE: Ultrasound guidance of PICC line placement. INJECTION MOULDING MACHINE OPERATOR: Dr. Eldridge. COMPLICATIONS: None ANESTHESIA: 1. 1% Lidocaine locally. FINDINGS/TECHNIQUE: The procedure was explained to the patient. The risks, complications, benefits and alternatives were discussed and any questions were answered. Informed consent was obtained. The patient was placed supine on the fluoroscopic table and prepped and draped in the usual sterile fas ion. Utilizing a 21 gauge needle and sonographic guidance, access in the right basilic vein was ach ieved and there is placement of a 0.018 guidewire. The vein is patent. A 5-F. sheath was placed ove r the guidewire. The guidewire and dilator were removed and a 5-F. Double lumen PICC line was placed through the sheath with the chest x-ray confirming the tip at the level of the right subclavian vein . The sheath was removed, the catheter was flushed and sutured into position. The patient was stabl e throughout the procedure and remained stable upon discharge from the Department of Radiology. The vein puncture was patent under ultrasound. A moulton scale image was obtained to document patency of the vein punctured. All elements of the maximal barrier technique were utilized. IMPRESSION: 1. Successful PICC line placement under ultrasound performed bedside within the ICU.
--- NOTE | 2020-10-04 14:15 | CDI ---
Documentation Clarification Form Date: 10/04/2020 01:27:37 PM From: Corinne Vidal RN CCDS Admit Date: 10/02/2020 11:26:00 AM Patient Name: Francisco Tinoco Visit Number: [id number] Discharge Date: ATTENTION: The Clinical Documentation Specialists (CDI) and [facility] Coding Staff appreciate your assistance in clarifying documentation. Please respond to the clarification below the line at the bottom and electronically sign. The CDI & [facility] Coding staff will review the response and follow-up if needed. Please note: Queries are made part of the Legal Health Record. If you have any questions, please contact the author of this message via ITS. Dr. Monroe E Sheet, Conflicting documentation has been found in the medical record: Stage II pressure ulcer with fatty layer exposure sacrum documented in the Wound care consult 10/03. Stage III sacral pressure ulcer documented in the ID consult 10/03 Stage IV sacral pressure ulcer documented in the Nursing wound assessment 10/02 History/Risk Factors: 80-year-old male presents to the ED for increased congestion, weakness and cough with more frequent suctioning. Was admitted to [facility] for one month five days and discharged a few days ago to [facility]. Per H&P 10/02. Medical History: CAD, COPD, Renal disease, Intraperitoneal hemorrhage s/p exploratory laparotomy with washout and ileostomy 08/02/20, Surgical dehiscence and nonhealing ulceration on abdomen. Clinical Indicators: Per Wound Care consult 10/03 Location: Sacrum ulceration stage II pressure ulcer. Wound description: fatty layer exposure. Eunice wound ecchymosis throughout. Wound edges are unattached to the wound base. Per Wound assessment in medical record 10/02: Pressure injury stage IV. Foam border dressing. Treatment: ID order 10/03 Therahoney with moist dressing. Wound care orders 10/03 Absorptive silver, saline moistened gauze, foam sacrum border gauze. Change Friday, , and Friday. Turn patient every two hours. Elements for accurate and compliant documentation of an ulcer: *The location/laterality of the ulcer *Etiology (decubitus/pressure, diabetic, PVD) *Stage I-IV, Unstageable, Suspected Deep Tissue Injury (To the deepest stage) *If the ulcer was present at admission (POA) or occurred after admission In your opinion, what is the most clinically appropriate diagnosis for this patient? Other explanation of clinical findings Unable to determine (no explanation for clinical findings) In your professional opinion, can you please clarify the diagnosis, location, laterality and whether present on admission (POA): Stage 2 Pressure/Decubitus Ulcer (Partial thickness, loss of dermis, pink wound bed) Stage 3 Pressure/Decubitus Ulcer (Full thickness tissue loss) Other condition, please specify Unable to determine Please indicate etiology of pressure ulcer (if known). (Last Revision: May 2017) Stage II sacral pressure ulcer MTDD
[2020-10-04] MEDS: VANCOMYCIN 1,250 MG in SODIUM CHLORIDE 0.9% 250 ML IVPB SCH (14:50)
--- NOTE | 2020-10-04 15:38 | PN ---
PROGRESS NOTE DATE OF SERVICE: 10/04/2020 REASON FOR FOLLOWUP: Pneumonia. INTERVAL HISTORY: The patient is currently afebrile. The patient is slightly more awake and alert today. He is breathing comfortably on trach collar. No vomiting, diarrhea or any other change reported by the nursing staff. Patient denied any significant complaint. PHYSICAL EXAMINATION: Blood pressure 97/49, pulse of 70, temperature 96.7. He is 99% on trach collar. General description is an elderly male lying in bed in no distress. RESPIRATORY SYSTEM: Unlabored breathing. Coarse breath sounds bilaterally. No wheeze. HEART: S1, S2. Regular rate and rhythm. ABDOMEN: Soft. No tenderness. LABS: Hemoglobin 6.7, white count 7.2, BUN of 108, creatinine 3.42. Sputum showing Staph aureus. DIAGNOSTIC IMPRESSION AND PLAN: 1. Patient admitted to hospital with hypoxemia and concern for pneumonia. The patient's sputum is now showing Staph aureus. We will add Zyvox, continue Zosyn, adjusting antibiotic further based on the clinical response and culture. 2. Patient did have wound to the sacral and the right heel areas. Continue current local wound care as ordered. MMODL / IJN: [id number] /
[2020-10-04 16:33] LABS: Anisocytosis Slight; HGB 7.8 gm/dL (13.0-17.5); Hypochromasia Marked; MCV 93.6 fL (80.0-100.0); Mean Platelet Volume 7.8; Platelet Count 275 k/uL (150-450); Poikilocytosis Moderate; RBC 2.78 m/uL (4.30-5.90); RDW 16.8 % (11.5-15.5); WBC 9.9 k/uL (3.8-10.6)
[2020-10-04 17:12] LABS: Glucose,Whole Blood 250 mg/dL (75-99)
[2020-10-04] MEDS: ATORVASTATIN 40 MG TAB PEG/G-TUBE SCH (23:41)
[2020-10-04] MEDS: QUEtiapine 25 MG TAB PO SCH (23:42)
[2020-10-04 23:58] LABS: Glucose,Whole Blood 198 mg/dL (75-99)
--- NOTE | 2020-10-05 00:19 | P.PN ---
Subjective This is a pleasant 80 years old male with past medical history of coronary artery disease, COPD, diabetes mellitus, hyperlipidemia, hypertension, hy pothyroidism, coronary artery disease status post cardiac cath and stent placement. He recently underwent double coronary artery bypass grafting for his triple-vessel coronary artery disease. He was in the hospital from 07/18/20- 08/25/2020 pt has tracheostomhy and PEG tube , Information were obtained with the help of at bedside, he presents with confusion, and a lot of secretion Why he states that after been discharged from community hospital and he went to [facility] aren't states therefore one month and 5 days and then he was discharged a few days ago to alf at [facility] on Friday, however over the weekend he has more congestion, he has weak cough and needed frequent suctioning, patient was able to talk weekly his little confused but he can't communicate through gesture, he denies pain but he is tachypneic He has tracheostomy, PEG tube and try to colostomy. On admission patient was tachycardic with heart rate around 120s and with rates 24-30, blood pressure on the low side 89/59. He is saturating 86% on 15 L oxygen via nasal cannula Labs showed leukocytosis of 16.6 K,Hemoglobin is 9.9, platelet is elevated at 584, it looks like concentrated sample and tomorrow will be less hemodilution PH of 7.47 which is high, normal pCO2 at 40, low CO2 at 54. Sodium is elevated at 153, creatinine is elevated to 3.1, liver enzymes moderately elevated, troponin is elevated at 0.12 EKG: Sinus tachycardia at [address]-T changes Chest x-ray: COPD with improving and radiation but with residual prominent patchy bibasilar air space disease In the emergency room patient received Zithromax and ceftriaxone 1, dexamethasone 1, morphine, normal saline at 130 milliliters per hour and 1 L of normal saline 10/03/2020 Patient today is seen in the ICU for close monitoring, is more awake and more alert mentally, no specific complaint however still dyspneic and tachypneic with weak cough and he has abdominal midline wound with yellow patient at the surgical site He is saturating 100% on trach collar with FiO2 of 60%, is tachypneic with a breathing rate 24-26. Afebrile. Blood pressure still on the low side with systolic fluctuating between 70s to 110 . Earlier his heart rate was 160-180. His sinus tachycardia on admission however patient has history of A. fib. Field Sales Executive on the case and started the patient on Cardizem drip as well as metoprolol 25 mg 3 times a day, also he is on Eliquis 5 mg twice daily which is lower to renal dose 2.5 mg. CBC showing hemoglo-delusion with the WBC within the reference range 9.5, hemoglobin 7.9 which is close to baseline. Platelets normal. Sodium is elevated at 152, creatinine is still up at 3.4 and organisation and methods analyst has been consulted. And patient is on D5W at 100 mL per hour. Procalcitonin is significantly elevated at 2.6 Sputum culture and blood culture are pending Patient is currently covered with Zosyn 08/03/2021 Patient remains in the ICU. This is slightly confused. He is tachypneic and dyspneic with weak cough is a breathing is a stable at 8 L oxygen via trach collar with FiO2 of 35% He is afebrile. His hemoglobin today a drop to 6.7. He received 1 unit of blood transfusion and his hemoglobin went up to 7.8. His aspirin and Eliquis were put on hold. Protonix was increased to 40 mg twice a day. Occult blood in the stool is ordered His Cardizem drip changed to amiodarone drip and his metoprolol dose lowered from 50 to 25 mg 3 times a day Hypernatremia is improving on D5W @100 mL/h Also he is on Zosyn for possible bilateral aspiration pneumonia and infected stage II sacral pressure ulcer Sputum culture showing presumptive staph and IV Zyvox was added by infectious disease team Stage II sacral pressure ulcer Review of Systems CONSTITUTIONAL: No fever, no malaise, no fatigue. HEENT: No recent visual problems or hearing problems. Denied any sore throat. CARDIOVASCULAR: No orthopnea, PND, no palpitations, no syncope. PULMONARY: No chest wall tenderness, no hemoptysis. GASTROINTESTINAL: No diarrhea, no nausea, no vomiting, no abdominal pain. Normoactive bowel sounds. NEUROLOGICAL: No headaches, no weakness, no numbness. HEMATOLOGICAL: Denies any bleeding or petechiae. \ Active Medications Generic Name Dose Route Start Last Admin Trade Name Freq PRN Reason Stop Dose Admin Acetaminophen 650 mg 10/02/20 11:26 10/04/20 09:06 Acetaminophen Tab 325 Mg Tab PO 650 mg Q6HR PRN Administration Mild Pain or Fever > 100.5 Albuterol/Ipratropium 3 ml 10/04/20 08:00 10/04/20 08:00 Ipratropium-Albuterol 3 Ml Neb INHALATION 3 ml RT-QID [facility] Administration Albuterol/Ipratropium 3 ml 10/03/20 21:23 10/03/20 21:27 Ipratropium-Albuterol 3 Ml Neb INHALATION 3 ml RT-Q2H PRN Administration Shortness Of Breath Or Wheezing Atorvastatin Calcium 40 mg 10/03/20 20:00 10/03/20 22:47 Atorvastatin 40 Mg Tab PEG/G-TUBE 40 mg HS@2000 [facility] Administration Budesonide 1 mg 10/04/20 08:00 10/04/20 08:01 Budesonide 1 Mg/2 Ml Nebu INHALATION 1 mg RT-BID [facility] Administration Darbepoetin Alex 40 mcg 10/03/20 10:00 10/03/20 12:08 Darbepoetin Alex 40 Mcg/0.4 Ml Syringe SQ 40 mcg Q7D [facility] Administration Piperacillin Sod/Tazobactam 100 mls @ 25 mls/hr 10/03/20 00:00 10/04/20 04:16 Sod 3.375 gm/ Sodium Chloride IVPB 25 mls/hr Q12H [facility] Administration Norepinephrine Bitartrate 8 mg 258 mls @ 8.338 mls/hr 10/03/20 11:00 10/03/20 11:15 / Sodium Chloride IV 0 mcg/kg/min .Q24H [facility] 0 mls/hr Titration Protocol 0.05 MCG/KG/MIN Amiodarone HCl 360 mg/ 200 mls @ 33.333 mls/hr 10/04/20 07:34 10/04/20 08:04 Dextrose/Water IV 10/04/20 13:33 1 mg/min .Q6H ONE 33.333 mls/hr Administration Protocol 1 MG/MIN Amiodarone HCl 450 mg/ 250 mls @ 16.667 mls/hr 10/04/20 14:00 Dextrose/Water IV 10/05/20 07:59 .Q15H [facility] Protocol 0.5 MG/MIN Ferric Sodium Gluconate 125 mg 110 mls @ 100 mls/hr 10/04/20 10:00 / Sodium Chloride IVPB 10/07/20 10:01 DAILY [facility] Insulin Aspart 0 unit 10/04/20 00:00 10/04/20 06:24 Insulin Aspart (Novolog) 100 Unit/Ml Vial SQ 2 unit Q6H [facility] Administration Protocol Levothyroxine Sodium 50 mcg 10/04/20 06:00 10/04/20 06:25 Levothyroxine 50 Mcg Tab PEG/G-TUBE 50 mcg DAILY@0600 [facility] Administration Metoprolol Tartrate 25 mg 10/03/20 10:00 10/04/20 08:44 Metoprolol Tartrate 25 Mg Tab PO 25 mg TID [facility] Administration Midodrine 5 mg 10/03/20 12:30 10/04/20 08:45 Midodrine 5 Mg Tab PO 5 mg AC-TID [facility] Administration Naloxone HCl 0.2 mg 10/02/20 11:26 Naloxone 0.4 Mg/Ml 1 Ml Vial IV Q2M PRN Opioid Reversal Ondansetron HCl 4 mg 10/02/20 11:26 Ondansetron 4 Mg/2 Ml Vial IVP Q8HR PRN Nausea And Vomiting Pantoprazole Sodium 40 mg 10/03/20 09:00 10/04/20 08:45 Pantoprazole 40 Mg/10 Ml Vial IV 40 mg DAILY [facility] Administration Quetiapine Fumarate 25 mg 10/03/20 21:00 10/03/20 22:47 Quetiapine 25 Mg Tab PO 25 mg HS WADE Administration Tamsulosin HCl 0.4 mg 10/03/20 09:30 10/04/20 08:44 Tamsulosin 0.4 Mg Cap.Er.24h PO 0.4 mg [id number] WADE Administration Objective - Vital Signs Vital signs: Vital Signs Temp 97 F L 10/04/20 09:13 Pulse 71 10/04/20 09:13 Resp 30 H 10/04/20 09:13 BP 82/48 10/04/20 09:13 Pulse Ox 99 10/04/20 09:00 Intake & Output 10/03/20 10/04/20 10/04/20 18:59 06:59 18:59 Intake Total 2677.639 1370 330 Output Total 631 484 3214 Balance 2397.639 615 -1270 Weight 86.183 kg 75.5 kg Intake: IV 2365 1250 100 Dextrose 5% in Water 1, 675 1150 100 000 ml @ 75 mls/hr IV . [id number] [facility] Rx#:[id number] Magnesium Sulfate-D5w Pmx 200 1 gm In Dextrose/Water 1 100ml.bag @ 100 mls/hr IVPB Q1H [facility] Rx#: [id number] Piperacillin-Tazobactam 3 100 100 .375 gm In Sodium Chloride 0.9% 100 ml @ 25 mls/hr IVPB Q12H [facility] Rx# :[id number] Sodium Chloride 0.9% 1, 390 000 ml @ 130 mls/hr IV . Q7H42M [facility] Rx#:[id number] Sodium Chloride 0.9% 1, 1000 000 ml @ 999 mls/hr IV . Q1H1M [facility] Rx#:[id number] Intake, IV Titration 2.639 0 Amount Diltiazem 125 mg In 2.5 0 Sodium Chloride 0.9% 100 ml @ 5 MG/HR 5 mls/hr IV .Q24H [facility] Rx#:[id number] Norepinephrine 8 mg In 0.139 Sodium Chloride 0.9% 250 ml @ 0.05 MCG/KG/MIN 8. 338 mls/hr IV .Q24H [facility] Rx#:[id number] Oral 100 Tube Feeding 180 90 130 Blood Product 0 Rc Pheresis 2 As3 Unit 0 [id number] Other 30 30 100 Output: Urine 280 505 Stool 250 1600 Other: Voiding Method Indwelling Catheter Indwelling Catheter Indwelling Catheter - Labs CBC & Chem 7: 10/04/20 16:00 10/04/20 04:07 Labs: Abnormal Lab Results - Last 24 Hours (Table) 10/03/20 10/03/20 10/03/20 Range/Units 03:28 03:28 11:09 RBC (4.30-5.90) m/uL Hgb (13.0-17.5) gm/dL Hct (39.0-53.0) % MCHC (31.0-37.0) g/dL RDW (11.5-15.5) % Lymphocytes # (1.0-4.8) k/uL Sodium (137-145) mmol/L Chloride (98-107) mmol/L BUN (9-20) mg/dL Creatinine (0.66-1.25) mg/dL Glucose (74-99) mg/dL POC Glucose (mg/dL) 157 H (75-99) mg/dL Iron 12 L (65-175) ug/dL TIBC 214 L (228-460) ug/dL % Saturation 5.61 L (15.00-50.00) Ferritin 1272.7 H (22.0-322.0) ng/mL Procalcitonin 2.60 H (0.02-0.09) ng/mL Crossmatch 10/03/20 10/03/20 10/04/20 Range/Units 16:24 17:33 04:07 RBC 2.46 L (4.30-5.90) m/uL Hgb 6.7 L* (13.0-17.5) gm/dL Hct 23.5 L (39.0-53.0) % MCHC 28.3 L (31.0-37.0) g/dL RDW 16.8 H (11.5-15.5) % Lymphocytes # 0.4 L (1.0-4.8) k/uL Sodium 152 H (137-145) mmol/L Chloride 113 H (98-107) mmol/L BUN 106 H* (9-20) mg/dL Creatinine 3.40 H (0.66-1.25) mg/dL Glucose 192 H (74-99) mg/dL POC Glucose (mg/dL) 144 H (75-99) mg/dL Iron (65-175) ug/dL TIBC (228-460) ug/dL % Saturation (15.00-50.00) Ferritin (22.0-322.0) ng/mL Procalcitonin (0.02-0.09) ng/mL Crossmatch 10/04/20 10/04/20 10/04/20 Range/Units 04:07 05:12 06:56 RBC (4.30-5.90) m/uL Hgb (13.0-17.5) gm/dL Hct (39.0-53.0) % MCHC (31.0-37.0) g/dL RDW (11.5-15.5) % Lymphocytes # (1.0-4.8) k/uL Sodium 148 H (137-145) mmol/L Chloride 111 H (98-107) mmol/L BUN 108 H* (9-20) mg/dL Creatinine 3.42 H (0.66-1.25) mg/dL Glucose 216 H (74-99) mg/dL POC Glucose (mg/dL) 194 H (75-99) mg/dL Iron (65-175) ug/dL TIBC (228-460) ug/dL % Saturation (15.00-50.00) Ferritin (22.0-322.0) ng/mL Procalcitonin (0.02-0.09) ng/mL Crossmatch See Detail 10/04/20 Range/Units 07:31 RBC (4.30-5.90) m/uL Hgb (13.0-17.5) gm/dL Hct (39.0-53.0) % MCHC (31.0-37.0) g/dL RDW (11.5-15.5) % Lymphocytes # (1.0-4.8) k/uL Sodium (137-145) mmol/L Chloride (98-107) mmol/L BUN (9-20) mg/dL Creatinine (0.66-1.25) mg/dL Glucose (74-99) mg/dL POC Glucose (mg/dL) 199 H (75-99) mg/dL Iron (65-175) ug/dL TIBC (228-460) ug/dL % Saturation (15.00-50.00) Ferritin (22.0-322.0) ng/mL Procalcitonin (0.02-0.09) ng/mL Crossmatch Microbiology - Last 24 Hours (Table) 10/03/20 05:35 Gram Stain - Preliminary Sputum Sputum Culture - Preliminary 10/02/20 09:51 Blood Culture - Preliminary Blood No Growth after 24 hours Assessment and Plan Assessment: Acute hypotension , possibly secondary to severe sepsis related to his pneumonia. Possible aspiration pneumonia Acute Hypoxic respiratory failure Acute kidney injury on the top of chronic kidney disease Hypernatremia Elevated lactic acid Elevated troponin, mostly secondary to tachycardia per hand welt butter History of triple vessel coronary artery disease status post bypass surgery on 07/18/2020 Atrial fibrillation on Eliquis (on hold) Stage II sacral pressure ulcer Recent history of intraperitoneal hemorrhage status post exploratory laparotomy with washout and ileostomy on 08/02/2020 Hypothyroidism Moderate to severe COPD, Remote history of nicotine dependence Chronic kidney disease stage II Hypertension Hyperlipidemia Type 2 diabetes mellitus No code Plan: This is a pleasant 80 years old male who presents with dyspnea and hypotension possible secondary to aspiration pneumonia. Start the patient on Zosyn. At Zyvox for staph and sputum. follow-up blood culture.Pulmonary and cardiology consult, continue with IV fluids, continue with oxygen as needed. Continue with amiodarone drip and metoprolol. Hold Eliquis and aspirin Recorder Of Deeds and surgical team are consulted as well Check occult blood in the stool Labs and medication were reviewed.. Continue same treatment. Continue with symptomatic treatment. Resume home medication if patient able to take them. Monitor lytes and vitals. DVT and GI prophylaxis. Further recommendations depends on the clinical course of the patient DVT prophylaxis: Hold Eliquis and Eliquis aspirin. Continue with mechanical GI Prophylaxis: Protonix Prognosis is guarded
[2020-10-05 04:04] LABS: Anisocytosis Slight; Basophils % (A) 0 %; Eosinophils # (A) 0.3 k/uL (0-0.7); Eosinophils % (A) 3 %; HGB 7.7 gm/dL (13.0-17.5); Hypochromasia Marked; Lymphocytes # (A) 0.5 k/uL (1.0-4.8); Lymphocytes % (A) 5 %; MCH 28.9 pg (25.0-35.0); MCHC 30.9 g/dL (31.0-37.0); MCV 93.2 fL (80.0-100.0); Mean Platelet Volume 7.6; Monocytes # (A) 0.4 k/uL (0-1.0); Monocytes % (A) 5 %; Neutrophils # (A) 7.7 k/uL (1.3-7.7); Neutrophils % (A) 86 %; Platelet Count 274 k/uL (150-450); Poikilocytosis Slight; RBC 2.68 m/uL (4.30-5.90)
[2020-10-05 04:12] LABS: Albumin 2.5 g/dL (3.5-5.0); Calcium 8.5 mg/dL (8.4-10.2); Potassium 3.7 mmol/L (3.5-5.1); Total Bilirubin 0.5 mg/dL (0.2-1.3); Total Protein 5.7 g/dL (6.3-8.2)
[2020-10-05] MEDS ORDERED: POTASSIUM BICARBONATE/CIT AC 20 MEQ TABLET.EFF PO ONE (06:45)
[2020-10-05] MEDS: AMIODARONE 450 MG in DEXTROSE 5% IN WATER 250 ML IV SCH ×2 (06:48)
[2020-10-05] MEDS: NOREPINEPHRINE 4 MG in SODIUM CHLORIDE 0.9% 250 ML IV SCH ×2 (06:48→23:52)
[2020-10-05] MEDS: LEVOTHYROXINE 50 MCG TAB PEG/G-TUBE SCH (06:51)
[2020-10-05] MEDS: INSULIN ASPART (NovoLOG) 100 UNIT/ML VIAL SQ SCH ×3 (06:52→17:26)
[2020-10-05] MEDS: BUDESONIDE 1 MG/2 ML NEBU INHALATION SCH ×2 (07:51→20:00)
[2020-10-05] MEDS: IPRATROPIUM-ALBUTEROL 3 ML NEB INHALATION SCH ×4 (07:51→20:00)
--- NOTE | 2020-10-05 08:01 | XR ---
EXAMINATION TYPE: XR chest 1V portable DATE OF EXAM: 10/05/2020 Comparison: 10/04/2020 Clinical History: 80-year-old male SOB Findings: Tracheostomy cannula. Median sternotomy wires post-CABG clips in the mediastinum. Right PICC tip prob ably in the lower right subclavian vein. Heart upper limits of normal in size. Relative upper lung lana cencies. Small effusions with patchy bibasilar densities similar to slightly increased. Impression: 1. Suspect background of COPD. Continued small effusions with patchy lower lung atelectasis and/or in filtrates, similar to slightly increased. 2. Note that the right PICC line is short, tip projecting at the right apex.
--- NOTE | 2020-10-05 08:15 | P.PN ---
Subjective Progress Note Date: 10/05/20 Principal diagnosis: Paroxysmal atrial fibrillation This is a 80-year-old gentleman with coronary artery disease and status post coronary artery bypass grafting as well as chronic hypoxic respiratory failure as well as paroxysmal atrial fibrillation who was brought from [facility] to the hospital because of increasing shortness of breath and possible underlying pneumonia likely to be aspiration pneumonia. The patient was seen today October 052020. He still in mild respiratory distress. The pressure continues to be marginally low and currently is on nore pinephrine. He is also on midodrine. We are planning to increase the dose of midodrine hopefully we can wean him from norepinephrine. He was started on amiodarone IV yesterday and he converted to normal sinus mechanism. I am going to start him amiodarone D0. Liver function tests are within normal limits. Oral anticoagulation on hold at this point because of the anemia when the patient presented to the hospital. Objective - Vital Signs Vital signs: Vital Signs Temp 96.9 F L 10/05/20 04:00 Pulse 65 10/05/20 08:06 Resp 26 H 10/05/20 07:00 BP 93/50 10/05/20 07:00 Pulse Ox 98 10/05/20 07:00 Intake & Output 10/04/20 10/05/20 10/05/20 18:59 06:59 18:59 Intake Total 2576.730 305 20 Output Total 2740 685 Balance -163.270 -380 20 Weight 78 kg Intake: IV 300 240 20 0.9NS 100 240 20 Dextrose 5% in Water 1, 100 000 ml @ 75 mls/hr IV . [id number] [facility] Rx#:[id number] Piperacillin-Tazobactam 3 100 .375 gm In Sodium Chloride 0.9% 100 ml @ 25 mls/hr IVPB Q12H [facility] Rx# :[id number] Intake, IV Titration 715.730 Amount Linezolid 600 mg In 300 Dextrose/Water 1 300ml. bag @ 150 mls/hr IVPB Q12HR [facility] Rx#:[id number] Norepinephrine 4 mg In 65.730 Sodium Chloride 0.9% 250 ml @ 0.05 MCG/KG/MIN 14. 383 mls/hr IV .[id number] [facility] Rx#:[id number] Sodium Ferric Gluconat- 100 Sucrose 125 mg In Sodium Chloride 0.9% 100 ml @ 100 mls/hr IVPB DAILY [facility] Rx#:[id number] Vancomycin 1,250 mg In 250 Sodium Chloride 0.9% 250 ml @ 125 mls/hr IVPB Q24HR [facility] Rx#:[id number] Tube Feeding 585 65 Blood Product 276 Rc Pheresis 2 As3 Unit 276 [id number] Other 700 Output: Urine 440 685 Stool 2300 Other: Voiding Method Indwelling Catheter Indwelling Catheter - Constitutional General appearance: Present: no acute distress - Respiratory Respiratory: bilateral: rhonchi - Cardiovascular Rhythm: regular Heart sounds: normal: S1, S2 - Labs CBC & Chem 7: 10/05/20 03:24 10/05/20 03:24 Labs: Abnormal Lab Results - Last 24 Hours (Table) 10/04/20 10/04/20 10/04/20 Range/Units 06:56 12:00 16:00 RBC 2.78 L (4.30-5.90) m/uL Hgb 7.8 L (13.0-17.5) gm/dL Hct 26.0 L (39.0-53.0) % MCHC 30.0 L (31.0-37.0) g/dL RDW 16.8 H (11.5-15.5) % Lymphocytes # (1.0-4.8) k/uL BUN (9-20) mg/dL Creatinine (0.66-1.25) mg/dL Glucose (74-99) mg/dL POC Glucose (mg/dL) 231 H (75-99) mg/dL Alkaline Phosphatase (38-126) U/L Total Protein (6.3-8.2) g/dL Albumin (3.5-5.0) g/dL Crossmatch See Detail 10/04/20 10/04/20 10/05/20 Range/Units 17:11 23:56 03:24 RBC (4.30-5.90) m/uL Hgb (13.0-17.5) gm/dL Hct (39.0-53.0) % MCHC (31.0-37.0) g/dL RDW (11.5-15.5) % Lymphocytes # (1.0-4.8) k/uL BUN 100 H (9-20) mg/dL Creatinine 3.22 H (0.66-1.25) mg/dL Glucose 185 H (74-99) mg/dL POC Glucose (mg/dL) 250 H 198 H (75-99) mg/dL Alkaline Phosphatase 145 H (38-126) U/L Total Protein 5.7 L (6.3-8.2) g/dL Albumin 2.5 L (3.5-5.0) g/dL Crossmatch 10/05/20 Range/Units 03:24 RBC 2.68 L (4.30-5.90) m/uL Hgb 7.7 L (13.0-17.5) gm/dL Hct 25.0 L (39.0-53.0) % MCHC 30.9 L (31.0-37.0) g/dL RDW 17.0 H (11.5-15.5) % Lymphocytes # 0.5 L (1.0-4.8) k/uL BUN (9-20) mg/dL Creatinine (0.66-1.25) mg/dL Glucose (74-99) mg/dL POC Glucose (mg/dL) (75-99) mg/dL Alkaline Phosphatase (38-126) U/L Total Protein (6.3-8.2) g/dL Albumin (3.5-5.0) g/dL Crossmatch Microbiology - Last 24 Hours (Table) 10/02/20 09:51 Blood Culture - Preliminary Blood No Growth after 48 hours 10/03/20 05:35 Gram Stain - Preliminary Sputum Sputum Culture - Preliminary Presumptive Staph aureus Assessment and Plan Assessment: Assessment #1 pneumonia/possible aspiration pneumonia/sepsis #2 marginal E low blood pressure #3 sinus tachycardia #4 mildly elevated troponin #5 paroxysmal atrial fibrillation #6 coronary artery disease and status post CABG #7 chronic hypoxic respiratory failure #8 acute on chronic renal failure Plan #1 DC amiodarone IV and start the patient on amiodarone by mouth #2 continue holding oral anticoagulation #3 increase the dose of midodrine #4 try to wean the patient from norepinephrine
[2020-10-05] MEDS: LINEZOLID 600 MG in DEXTROSE/WATER 1 300ML.BAG IVPB SCH ×2 (08:20→21:42)
[2020-10-05] MEDS: MIDODRINE 5 MG TAB PO SCH ×3 (08:34→21:43)
[2020-10-05] MEDS: AMIODARONE 200 MG TAB PO SCH ×2 (08:34→21:42)
[2020-10-05] MEDS: TAMSULOSIN 0.4 MG CAP.ER.24H PO SCH (08:34)
[2020-10-05] MEDS: METOPROLOL TARTRATE 25 MG TAB PO SCH ×3 (08:34→21:42)
[2020-10-05] MEDS: PANTOPRAZOLE 40 MG/10 ML VIAL IV SCH ×2 (08:34→21:41)
[2020-10-05] MEDS: SODIUM FERRIC GLUCONAT-SUCROSE 125 MG in SODIUM CHLORIDE 0.9% 100 ML IVPB SCH (08:34)
[2020-10-05] MEDS: VANCOMYCIN 1,250 MG in SODIUM CHLORIDE 0.9% 250 ML IVPB SCH (08:35)
--- NOTE | 2020-10-05 09:29 | CDI ---
Documentation Clarification Form Date: 10/05/2020 09:04:47 AM From: Corinne Vidal RN CCDS Admit Date: 10/02/2020 11:26:00 AM Patient Name: Francisco Tinoco Visit Number: [id number] Discharge Date: ATTENTION: The Clinical Documentation Specialists (CDI) and [facility] Coding Staff appreciate your assistance in clarifying documentation. Please respond to the clarification below the line at the bottom and electronically sign. The CDI & [facility] Coding staff will review the response and follow-up if needed. Please note: Queries are made part of the Legal Health Record. If you have any questions, please contact the author of this message via ITS. Dr. Anjel Dempsey, Per your consult 10/03 Abdominal wound at surgical incision site. Eschar tissue removed at bedside by Dr. Dempsey. History/Risk Factors:80-year old male presents to the ED for increased congestion, weakness and cough. Per H&P 10/02. History: Ischemic small bowel with evidence of pneumatosis status post small bowel resection 07/24/20. Intraperitoneal hemorrhage status post exploratory laparotomy washout of peritoneal cavity and ileostomy with small bowel resection on 08/02/20. Per Surgical consult 10/03. Clinical Indicators: Abdomen Assessment: Soft. Nondistended. Incisional site is open and there is a 3 inch area of eschar tissue that was removed by Dr. Dempsey at bedside Underneath tissue is healthy. There are sutures present. Per Surgical Consult 10/03. Treatment: 3 inch area of eschar tissue removed. Five elements required for accurate and compliant documentation of a debridement: 1. Technique used (e.g., excisional, excised, cutting, etc.) 2. Instrument(s) used (e.g., scalpel, curette, etc.) 3. Nature of the tissue removed (e.g., necrotic, devitalized tissues, non- viable tissue, etc.) 4. Appearance and size of the wound (e.g., down to fresh bleeding tissue, 7cm x 10cm, etc.) 5. Depth of the debridement* (e.g., skin, subcutaneous tissue, fascia, muscle, bone, etc.) In order to capture the severity of condition and code the appropriate procedure; could you please document the following: Excisional debridement (the removal of necrotic, devitalized tissue or slough by means of cutting away of tissue) Non-excisional debridement (the removal of necrotic, devitalized tissue or slough by means of flushing, brushing, or washing. (Irrigation) Other; please specify Unable to determine (Last Revision: November 2017) This was a non-excisional debridement. The tissue was brushed off with a 4 x 4 gauze. No instruments were used. The wound measured present 3 x 10 cm. [facility]
--- NOTE | 2020-10-05 09:50 | P.PN ---
Subjective Patient is seen in follow-up for acute kidney injury on chronic kidney disease. Patient has chronic kidney disease stage IIIA with baseline creatinine in the range of 1.2-1.5. Renal function a little better. Sodium level down to 142. Hemoglobin improved post blood transfusion. He is receiving tube feeding along with free water flushes. Currently on 35% FiO2. Now on oral amiodarone for A. fib. Also on low-dose Levophed for hypotension. Vital signs: Blood pressure little on the lower side. General: The patient appeared well nourished and normally developed. HEENT: Tracheostomy noted. LUNGS:Breath sounds decreased. HEART: Irregular rate and rhythm. ABDOMEN: Soft, nondistended. EXTREMITITES: No edema. Objective - Vital Signs Vital signs: Vital Signs Temp 96.9 F L 10/05/20 04:00 Pulse 65 10/05/20 08:06 Resp 26 H 10/05/20 07:00 BP 93/50 10/05/20 07:00 Pulse Ox 98 10/05/20 07:00 Intake & Output 10/04/20 10/05/20 10/05/20 18:59 06:59 18:59 Intake Total 2576.730 305 985 Output Total 2740 685 1075 Balance -163.270 -380 -90 Weight 78 kg Intake: IV 300 240 340 0.9NS 100 240 40 Dextrose 5% in Water 1, 100 000 ml @ 75 mls/hr IV . [id number] [facility] Rx#:[id number] Linezolid 600 mg In 300 Dextrose/Water 1 300ml. bag @ 150 mls/hr IVPB Q12HR [facility] Rx#:[id number] Piperacillin-Tazobactam 3 100 .375 gm In Sodium Chloride 0.9% 100 ml @ 25 mls/hr IVPB Q12H [facility] Rx# :[id number] Intake, IV Titration 715.730 Amount Linezolid 600 mg In 300 Dextrose/Water 1 300ml. bag @ 150 mls/hr IVPB Q12HR [facility] Rx#:[id number] Norepinephrine 4 mg In 65.730 Sodium Chloride 0.9% 250 ml @ 0.05 MCG/KG/MIN 14. 383 mls/hr IV .[id number] [facility] Rx#:[id number] Sodium Ferric Gluconat- 100 Sucrose 125 mg In Sodium Chloride 0.9% 100 ml @ 100 mls/hr IVPB DAILY [facility] Rx#:[id number] Vancomycin 1,250 mg In 250 Sodium Chloride 0.9% 250 ml @ 125 mls/hr IVPB Q24HR REPLACED BY [facility] Rx#:[id number] Tube Feeding 585 65 45 Blood Product 276 Rc Pheresis 2 As3 Unit 276 [id number] Other 700 600 Output: Urine 440 685 75 Stool 2300 1000 Other: Voiding Method Indwelling Catheter Indwelling Catheter - Labs CBC & Chem 7: 10/05/20 03:24 10/05/20 03:24 Labs: Abnormal Lab Results - Last 24 Hours (Table) 10/04/20 10/04/20 10/04/20 Range/Units 06:56 12:00 16:00 RBC 2.78 L (4.30-5.90) m/uL Hgb 7.8 L (13.0-17.5) gm/dL Hct 26.0 L (39.0-53.0) % MCHC 30.0 L (31.0-37.0) g/dL RDW 16.8 H (11.5-15.5) % Lymphocytes # (1.0-4.8) k/uL BUN (9-20) mg/dL Creatinine (0.66-1.25) mg/dL Glucose (74-99) mg/dL POC Glucose (mg/dL) 231 H (75-99) mg/dL Alkaline Phosphatase (38-126) U/L Total Protein (6.3-8.2) g/dL Albumin (3.5-5.0) g/dL Crossmatch See Detail 10/04/20 10/04/20 10/05/20 Range/Units 17:11 23:56 03:24 RBC (4.30-5.90) m/uL Hgb (13.0-17.5) gm/dL Hct (39.0-53.0) % MCHC (31.0-37.0) g/dL RDW (11.5-15.5) % Lymphocytes # (1.0-4.8) k/uL BUN 100 H (9-20) mg/dL Creatinine 3.22 H (0.66-1.25) mg/dL Glucose 185 H (74-99) mg/dL POC Glucose (mg/dL) 250 H 198 H (75-99) mg/dL Alkaline Phosphatase 145 H (38-126) U/L Total Protein 5.7 L (6.3-8.2) g/dL Albumin 2.5 L (3.5-5.0) g/dL Crossmatch 10/05/20 Range/Units 03:24 RBC 2.68 L (4.30-5.90) m/uL Hgb 7.7 L (13.0-17.5) gm/dL Hct 25.0 L (39.0-53.0) % MCHC 30.9 L (31.0-37.0) g/dL RDW 17.0 H (11.5-15.5) % Lymphocytes # 0.5 L (1.0-4.8) k/uL BUN (9-20) mg/dL Creatinine (0.66-1.25) mg/dL Glucose (74-99) mg/dL POC Glucose (mg/dL) (75-99) mg/dL Alkaline Phosphatase (38-126) U/L Total Protein (6.3-8.2) g/dL Albumin (3.5-5.0) g/dL Crossmatch Microbiology - Last 24 Hours (Table) 10/03/20 05:35 Gram Stain - Preliminary Sputum Sputum Culture - Preliminary Staphylococcus aureus Gram Neg Bacilli 10/02/20 09:51 Blood Culture - Preliminary Blood No Growth after 48 hours Assessment and Plan Plan: Assessment: 1. Acute kidney injury secondary to ATN secondary to hypotension and hemodyna rito instability. Renal function little better. Creatinine 3.22 today. No hydronephrosis noted on kidney ultrasound. 2. Chronic kidney disease stage III with baseline creatinine 1.2-1.5 secondary to nephrosclerosis. 3. A. fib with RVR. Maintained on oral amiodarone. 4. Hypernatremia secondary to lack of oral water intake. Improved. Receiving free water flushes. 5. Mild hyperkalemia secondary to acute kidney injury. Resolved. Now hypokalemic, being replaced. 6. Diabetes mellitus. 7. Anemia of chronic kidney disease. Maintained on Aranesp. Iron deficiency noted. Status post blood transfusion on October 04. Plan: Maintain tube feeding with free water flushes. Continue to monitor renal function and urine output. Avoid nephrotoxins. IV iron 3 doses. Second dose today. Wean Levophed. Midodrine dose increased.
--- NOTE | 2020-10-05 11:49 | P.PN ---
Subjective Progress Note Date: 10/05/20 CHIEF COMPLAINT: Respiratory distress HISTORY OF PRESENT ILLNESS: Patient is being followed in regards to his abdominal wound at incision site. Patient remains in the ICU. He is awake. He denies any pain. He did require to be on Levophed for short period yesterday. Currently off of vasopressors. He did receive a unit of blood yesterday for hemoglobin of 6.7. Hemoglobin this morning is 7.7. Patient is afebrile. WBC 9.0 creatinine 3.22 patient has PEG tube feedings for nutrition support. Rosalva cochran is on trach collar. PHYSICAL EXAM: VITAL SIGNS: Reviewed. GENERAL: Well-developed in no acute distress. HEENT: No sclera icterus. Extraocular movements grossly intact. Moist buccal mucosa. Head is atraumatic, normocephalic. ABDOMEN: Soft. Nondistended. Nontender. Dressing clean dry and intact. Patient has a yellowish liquidy stool coming through the ileostomy. NEUROLOGIC: Alert and oriented. Cranial nerves II through XII grossly intact. ASSESSMENT: 1. Abdominal wound at surgical incision site. 2. History of ischemic small bowel with evidence of pneumatosis status post sm all bowel resection on 07/24/2020. 3. History of intraperitoneal hemorrhage and small bowel ischemia status post exploratory laparotomy, washout of peritoneal cavity and ileostomy with small bowel resection on 08/02/2020 4. History of CABG in July 2020 5. Acute hypoxic respiratory failure secondary to pneumonia 6. Sepsis secondary to pneumonia 7. Acute kidney injury 8. Anemia: With known chronic kidney disease and iron deficiency PLAN: -Recommend ileostomy reversal when patient is medically stable -Continue wound care with Aquacel dressing -Continue supportive care -Continue ICU management Physician Pulmonary Fellow note has been reviewed by physician. Signing provider agrees with the documented findings, assessment, and plan of care. Objective - Vital Signs Vital signs: Vital Signs Temp 97.9 F 10/05/20 08:00 Pulse 62 10/05/20 10:00 Resp 25 H 10/05/20 10:00 BP 90/55 10/05/20 10:00 Pulse Ox 99 10/05/20 10:00 Intake & Output 10/04/20 10/05/20 10/05/20 18:59 06:59 18:59 Intake Total 2576.637 584 6272 Output Total 2740 685 1095 Balance -163.270 -380 395 Weight 78 kg Intake: IV 300 240 755 0.9NS 100 240 80 Dextrose 5% in Water 1, 100 000 ml @ 75 mls/hr IV . [id number] [facility] Rx#:[id number] Linezolid 600 mg In 300 Dextrose/Water 1 300ml. bag @ 150 mls/hr IVPB Q12HR [facility] Rx#:[id number] Piperacillin-Tazobactam 3 100 .375 gm In Sodium Chloride 0.9% 100 ml @ 25 mls/hr IVPB Q12H [facility] Rx# :[id number] Sodium Ferric Gluconat- 125 Sucrose 125 mg In Sodium Chloride 0.9% 100 ml @ 100 mls/hr IVPB DAILY [facility] Rx#:[id number] Vancomycin 1,250 mg In 250 Sodium Chloride 0.9% 250 ml @ 125 mls/hr IVPB Q24HR [facility] Rx#:[id number] Intake, IV Titration 715.730 Amount Linezolid 600 mg In 300 Dextrose/Water 1 300ml. bag @ 150 mls/hr IVPB Q12HR [facility] Rx#:[id number] Norepinephrine 4 mg In 65.730 Sodium Chloride 0.9% 250 ml @ 0.05 MCG/KG/MIN 14. 383 mls/hr IV .[id number] [facility] Rx#:[id number] Sodium Ferric Gluconat- 100 Sucrose 125 mg In Sodium Chloride 0.9% 100 ml @ 100 mls/hr IVPB DAILY [facility] Rx#:[id number] Vancomycin 1,250 mg In 250 Sodium Chloride 0.9% 250 ml @ 125 mls/hr IVPB Q24HR [facility] Rx#:[id number] Tube Feeding 585 65 135 Blood Product 276 Rc Pheresis 2 As3 Unit 276 [id number] Other 700 600 Output: Urine 440 685 95 Stool 2300 1000 Other: Voiding Method Indwelling Catheter Indwelling Catheter Indwelling Catheter - Labs CBC & Chem 7: 10/05/20 03:24 10/05/20 03:24 Labs: Abnormal Lab Results - Last 24 Hours (Table) 10/04/20 10/04/20 10/04/20 Range/Units 06:56 12:00 16:00 RBC 2.78 L (4.30-5.90) m/uL Hgb 7.8 L (13.0-17.5) gm/dL Hct 26.0 L (39.0-53.0) % MCHC 30.0 L (31.0-37.0) g/dL RDW 16.8 H (11.5-15.5) % Lymphocytes # (1.0-4.8) k/uL BUN (9-20) mg/dL Creatinine (0.66-1.25) mg/dL Glucose (74-99) mg/dL POC Glucose (mg/dL) 231 H (75-99) mg/dL Alkaline Phosphatase (38-126) U/L Total Protein (6.3-8.2) g/dL Albumin (3.5-5.0) g/dL Crossmatch See Detail 10/04/20 10/04/20 10/05/20 Range/Units 17:11 23:56 03:24 RBC (4.30-5.90) m/uL Hgb (13.0-17.5) gm/dL Hct (39.0-53.0) % MCHC (31.0-37.0) g/dL RDW (11.5-15.5) % Lymphocytes # (1.0-4.8) k/uL BUN 100 H (9-20) mg/dL Creatinine 3.22 H (0.66-1.25) mg/dL Glucose 185 H (74-99) mg/dL POC Glucose (mg/dL) 250 H 198 H (75-99) mg/dL Alkaline Phosphatase 145 H (38-126) U/L Total Protein 5.7 L (6.3-8.2) g/dL Albumin 2.5 L (3.5-5.0) g/dL Crossmatch 10/05/20 Range/Units 03:24 RBC 2.68 L (4.30-5.90) m/uL Hgb 7.7 L (13.0-17.5) gm/dL Hct 25.0 L (39.0-53.0) % MCHC 30.9 L (31.0-37.0) g/dL RDW 17.0 H (11.5-15.5) % Lymphocytes # 0.5 L (1.0-4.8) k/uL BUN (9-20) mg/dL Creatinine (0.66-1.25) mg/dL Glucose (74-99) mg/dL POC Glucose (mg/dL) (75-99) mg/dL Alkaline Phosphatase (38-126) U/L Total Protein (6.3-8.2) g/dL Albumin (3.5-5.0) g/dL Crossmatch Microbiology - Last 24 Hours (Table) 10/03/20 05:35 Gram Stain - Preliminary Sputum Sputum Culture - Preliminary Staphylococcus aureus Gram Neg Bacilli 10/02/20 09:51 Blood Culture - Preliminary Blood No Growth after 48 hours
[2020-10-05 11:53] LABS: Glucose,Whole Blood 184 mg/dL (75-99)
[2020-10-05] MEDS: PIPERACILLIN-TAZOBACTAM 3.375 GM in SODIUM CHLORIDE 0.9% 100 ML IVPB SCH (12:22)
--- NOTE | 2020-10-05 13:14 | P.PN ---
Subjective Progress Note Date: 10/05/20 Principal diagnosis: Acute on chronic hypoxic respiratory failure secondary to left lower lobe pneumonia and sepsis. This is a 80-year-old white male familiar to my service, in July 2020, patient underwent elective coronary artery bypass grafting. He had a very complicated postoperative course, patient required multiple abdominal surgeries, multiple intubations, extubations, and the intubations, patient was a failure to wean, and he had multiple abdominal surgeries during his stay. Patient underwent tracheostomy, PEG tube placement, and we were able to transfer the pa esternt to an extended care facility. He was at the extended care facility until about a week ago, his tracheostomy was capped, and he was transferred to [facility] in [facility]. Patient has been noticing increased cough, increased shortness of breath, and significant purulent secretions from the tracheostomy tube when uncapped. O2 saturation was dipping down into the 50s and in the ER he had a saturation of 86% on 15 L high flow nasal cannula. Patient was also noted to have leukocytosis, hemoglobin was low, his troponin was slightly elevated, blood pressure was noted to be marginally low, patient was admitted initially to the cardiac floor, however supposedly he was noted to have blood pressure in the 70s systolic. Patient did receive multiple fluid boluses in the ER over 3 L were given, and we were notified about the patient on the floor having low blood pressure, I recommended transferred to the ICU planning to start the patient on norepinephrine. However over the last 12 hours in the ICU, his blood pressure has been stable patient did not require placement on any pressors. His beta blockers had been on hold because of low blood pressure, and he is maintained on amiodarone. His pro-calcitonin level was noted to be 2.60. And his chest x-ray showed left lower lobe atelectasis, suspect left lower lobe pneumonia. And he had small pleural effusions noted more so than right. Going back to his previous hospital admission, patient did have left lower lobe pneumonia and he did have left pleural effusion requiring thoracentesis once or twice. Cultures previously from the sputum were positive for Pseudomonas fluorescence/putida, sensitive to Zosyn and Levaquin and meropenem. Also sensitive to cefepime. Considering the patient's presentation with hypotension, shortness of breath, cough, abnormal chest x-ray, hypoxia, and considering his recent clinical history, we were asked to see him on consultation Patient was reevaluated today on 10/04/2020, patient remains in the ICU, he is on trach collar a 55%, patient went into atrial fibrillation with RVR yesterday, and he went on amiodarone at 1 mg/m, he also received 1 unit of packed RBCs for hemoglobin of 6.7, patient converted to sinus rhythm. Remains in sinus rhythm, patient is receiving tube feeds/Nepro at 65/65. He is also receiving free water. Chest x-ray is showing minimal improvement in the left lower lobe consolidation, clinically the patient is feeling better, he is empirically on antibiotics for healthcare acquired pneumonia/Zosyn. Previous sputum cultures were positive for Pseudomonas, hence his Zosyn was chosen as the drug of choice. CBC today showed WBC 7.2 hemoglobin 6.7, hence a unit of blood was given. Electrolytes showed low sodium but improving today is 148 from 150 to yesterday. BUN is 108 creatinine 3.4 to about the same as yesterday. Reevaluated today on 10/05/2020, patient remains in the ICU, remains on 55% trach collar. Off norepinephrine, IV fluids at KVO, tolerating enteral feeding via PEG tube, patient continues to have significant amount of tracheal secretions, he is now on Zosyn and vancomycin, as well as Zyvox. His cultures from the sputum are showing MSSA, hence we will discontinue vancomycin, keep him on Zosyn, and infectious disease to address his Zyvox. Patient may not even require Zyvox considering the culture is positive for MSSA. Chest x-ray is showing bilateral pleural effusions/small, renal functioning is slightly improved over the last 24 hours. Patient was switched to oral amiodarone, and he seems to be doing quite well, in sinus rhythm. Objective - Vital Signs Vital signs: Vital Signs Temp 97.7 F 10/05/20 12:00 Pulse 62 10/05/20 12:00 Resp 34 H 10/05/20 12:00 BP 88/59 10/05/20 12:00 Pulse Ox 100 10/05/20 12:00 Intake & Output 10/04/20 10/05/20 10/05/20 18:59 06:59 18:59 Intake Total 2576.716 394 9741 Output Total 2740 685 1215 Balance -163.270 -380 505 Weight 78 kg Intake: IV 300 240 895 0.9NS 100 240 120 Dextrose 5% in Water 1, 100 000 ml @ 75 mls/hr IV . [id number] [facility] Rx#:[id number] Linezolid 600 mg In 300 Dextrose/Water 1 300ml. bag @ 150 mls/hr IVPB Q12HR [facility] Rx#:[id number] Piperacillin-Tazobactam 3 100 100 .375 gm In Sodium Chloride 0.9% 100 ml @ 25 mls/hr IVPB Q12H [facility] Rx# :[id number] Sodium Ferric Gluconat- 125 Sucrose 125 mg In Sodium Chloride 0.9% 100 ml @ 100 mls/hr IVPB DAILY [facility] Rx#:[id number] Vancomycin 1,250 mg In 250 Sodium Chloride 0.9% 250 ml @ 125 mls/hr IVPB Q24HR [facility] Rx#:[id number] Intake, IV Titration 715.730 Amount Linezolid 600 mg In 300 Dextrose/Water 1 300ml. bag @ 150 mls/hr IVPB Q12HR [facility] Rx#:[id number] Norepinephrine 4 mg In 65.730 Sodium Chloride 0.9% 250 ml @ 0.05 MCG/KG/MIN 14. 383 mls/hr IV .[id number] [facility] Rx#:[id number] Sodium Ferric Gluconat- 100 Sucrose 125 mg In Sodium Chloride 0.9% 100 ml @ 100 mls/hr IVPB DAILY [facility] Rx#:[id number] Vancomycin 1,250 mg In 250 Sodium Chloride 0.9% 250 ml @ 125 mls/hr IVPB Q24HR [facility] Rx#:[id number] Tube Feeding 585 65 225 Blood Product 276 Rc Pheresis 2 As3 Unit 276 [id number] Other 700 600 Output: Urine 440 685 215 Stool 2300 1000 Other: Voiding Method Indwelling Catheter Indwelling Catheter Indwelling Catheter - Exam Physical Exam: Revealed 80-year-old white male pleasant, on trach collar at 35%. HEENT:[Neck is supple.] [No neck masses.] [No thyromegaly.] [No JVD.] Chest: Symmetrical chest expansion, crackles and rhonchi noted bilaterally especially at the left base Cardiac Exam: [Normal S1 and S2, no S3 gallop, no murmur.] Abdomen: [Soft, nontender, no megaly, no rebound, no guarding, normal bowel sounds.] Surgical scar is noted in the mid abdomen, colostomy in the right lower quadrant is noted. Sutures in the surgical scar noted. Extremities: [No clubbing, 1+ bipedal edema, no cyanosis.] Neurological Exam: Alert and oriented 3. [No focal neurologic deficit.] Psychiatric: Normal mood, affect and normal mental status examination. Skin: No rashes, surgical scar noted in the abdomen, some minimal drainage noted, clean dressing sedated - Labs CBC & Chem 7: 10/05/20 03:24 10/05/20 03:24 Labs: Abnormal Lab Results - Last 24 Hours (Table) 10/04/20 10/04/20 10/04/20 Range/Units 16:00 17:11 23:56 RBC 2.78 L (4.30-5.90) m/uL Hgb 7.8 L (13.0-17.5) gm/dL Hct 26.0 L (39.0-53.0) % MCHC 30.0 L (31.0-37.0) g/dL RDW 16.8 H (11.5-15.5) % Lymphocytes # (1.0-4.8) k/uL BUN (9-20) mg/dL Creatinine (0.66-1.25) mg/dL Glucose (74-99) mg/dL POC Glucose (mg/dL) 250 H 198 H (75-99) mg/dL Alkaline Phosphatase (38-126) U/L Total Protein (6.3-8.2) g/dL Albumin (3.5-5.0) g/dL 10/05/20 10/05/20 10/05/20 Range/Units 03:24 03:24 11:52 RBC 2.68 L (4.30-5.90) m/uL Hgb 7.7 L (13.0-17.5) gm/dL Hct 25.0 L (39.0-53.0) % MCHC 30.9 L (31.0-37.0) g/dL RDW 17.0 H (11.5-15.5) % Lymphocytes # 0.5 L (1.0-4.8) k/uL BUN 100 H (9-20) mg/dL Creatinine 3.22 H (0.66-1.25) mg/dL Glucose 185 H (74-99) mg/dL POC Glucose (mg/dL) 184 H (75-99) mg/dL Alkaline Phosphatase 145 H (38-126) U/L Total Protein 5.7 L (6.3-8.2) g/dL Albumin 2.5 L (3.5-5.0) g/dL Microbiology - Last 24 Hours (Table) 10/02/20 09:51 Blood Culture - Preliminary Blood No Growth after 72 hours 10/03/20 05:35 Gram Stain - Preliminary Sputum Sputum Culture - Preliminary Staphylococcus aureus Gram Neg Bacilli Assessment and Plan Assessment: Impression: Hypotension secondary to sepsis secondary to left lower lobe pneumonia Acute on chronic hypoxic respiratory failure secondary to pneumonia and underlying COPD. Acute left lower lobe pneumonia, secondary to MSSA Sepsis secondary to pneumonia involving the left lower lobe. Doubt septic shock. Patient responded to mostly IV fluids, and minimal infusion of norepinephrine briefly. Acute on chronic kidney injury secondary to sepsis. Moderate severe COPD. History of triple-vessel coronary artery disease, bypass surgery on 07/18/2020 with multiple postoperative complications History of tracheostomy mostly because of failure to wean. Benign essential hypertension. Type 2 diabetes. Dyslipidemia. Chronic atrial fibrillation. On amiodarone and on anticoagulation therapy History of hypothyroidism. History of ileostomy on 08/02/2020. Chronic anemia Recommendation: Continue present supportive care measures. Antibiotics as per infectious disease on the case. Presently on Zyvox and Zosyn. Continue GI and DVT prophylaxis. Continue eliquis. And patient is on Pepcid. Continue patient on trach collar Titrate oxygen accordingly. Continue bronchodilators. Continue amiodarone. Continue midodrine We'll continue to follow. PICC line was placed. Critical care time is over 30 minutes Time with Patient: Greater than 30
[2020-10-05 16:18] LABS: Glucose,Whole Blood 157 mg/dL (75-99)
[2020-10-05] MEDS: ACETAMINOPHEN TAB 325 MG TAB PO PRN (21:41)
[2020-10-05] MEDS: QUEtiapine 25 MG TAB PO SCH (21:42)
[2020-10-05] MEDS: ATORVASTATIN 40 MG TAB PEG/G-TUBE SCH (21:42)
--- NOTE | 2020-10-05 21:48 | P.PN ---
Subjective Progress Note Date: 10/05/20 This is a pleasant 80 years old male with past medical history of coronary artery disease, COPD, diabetes mellitus, hyperlipidemia, hypertension, hypothyroidism, coronary artery disease status post cardiac cath and stent placement. He recently underwent double coronary artery bypass grafting for his triple-vessel coronary artery disease. He was in the hospital from 07/18/20- 08/25/2020 pt has tracheostomhy and PEG tube , Information were obtained with the help of at bedside, he presents with co nfusion, and a lot of secretion Why he states that after been discharged from [facility] and he went to [facility] aren't states therefore one month and 5 days and then he was discharged a few days ago to group home at [facility] on Friday, however over the weekend he has more congestion, he has weak cough and needed frequent suctioning, patient was able to talk weekly his little confused but he can't communicate through gesture, he denies pain but he is tachypneic He has tracheostomy, PEG tube and try to colostomy. On admission patient was tachycardic with heart rate around 120s and with rates 24-30, blood pressure on the low side 89/59. He is saturating 86% on 15 L ox ygen via nasal cannula Labs showed leukocytosis of 16.6 K,Hemoglobin is 9.9, platelet is elevated at 584, it looks like concentrated sample and tomorrow will be less hemodilution PH of 7.47 which is high, normal pCO2 at 40, low CO2 at 54. Sodium is elevated at 153, creatinine is elevated to 3.1, liver enzymes moderately elevated, troponin is elevated at 0.12 EKG: Sinus tachycardia at [address]-T changes Chest x-ray: COPD with improving and radiation but with residual prominent patchy bibasilar air space disease In the emergency room patient received Zithromax and ceftriaxone 1, dexamethasone 1, morphine, normal saline at 130 milliliters per hour and 1 L of normal saline 10/03/2020 Patient today is seen in the ICU for close monitoring, is more awake and more alert mentally, no specific complaint however still dyspneic and tachypneic with weak cough and he has abdominal midline wound with yellow patient at the surgical site He is saturating 100% on trach collar with FiO2 of 60%, is tachypneic with a breathing rate 24-26. Afebrile. Blood pressure still on the low side with systolic fluctuating between 70s to 110 . Earlier his heart rate was 160-180. His sinus tachycardia on admission however patient has history of A. fib. Hire Car Driver on the case and started the patient on Cardizem drip as well as metoprolol 25 mg 3 times a day, also he is on Eliquis 5 mg twice daily which is lower to renal dose 2.5 mg. CBC showing hemoglo-delusion with the WBC within the reference range 9.5, hemoglobin 7.9 which is close to baseline. Platelets normal. Sodium is el evated at 152, creatinine is still up at 3.4 and biodiesel division manager has been consulted. And patient is on D5W at 100 mL per hour. Procalcitonin is significantly elevated at 2.6 Sputum culture and blood culture are pending Patient is currently covered with Zosyn 08/03/2021 Patient remains in the ICU. This is slightly confused. He is tachypneic and dyspneic with weak cough is a breathing is a stable at 8 L oxygen via trach collar with FiO2 of 35% He is afebrile. His hemoglobin today a drop to 6.7. He received 1 unit of blood transfusion and his hemoglobin went up to 7.8. His aspirin and Eliquis were put on hold. Protonix was increased to 40 mg twice a day. Occult blood in the stool is ordered His Cardizem drip changed to amiodarone drip and his metoprolol dose lowered from 50 to 25 mg 3 times a day Hypernatremia is improving on D5W @100 mL/h Also he is on Zosyn for possible bilateral aspiration pneumonia and infected stage II sacral pressure ulcer Sputum culture showing presumptive staph and IV Zyvox was added by infectious disease team Stage II sacral pressure ulcer 10/05/2020 Patient is currently in the MICU. awake and alert, On trach collar with 55% FiO2. Currently on antibiotics in the form of linezolid and Zosyn. Blood cultures negative. Sputum culture showed MSSA and gram-negative bacilli. Chest x-ray showed suspect background self COPD. Continued small effusions with patchy lower lung atelectasis and/or infiltrates, similar to slightly increased. Patient remains on sinus rhythm. Continued amiodarone changed to by mouth. Laboratory data showed BUN 100 and creatinine 3.22 WBC 9.0 hemoglobin 7.7, platelets 274 Review of Systems CONSTITUTIONAL: No fever, no malaise, no fatigue. HEENT: No recent visual problems or hearing problems. Denied any sore throat. CARDIOVASCULAR: No orthopnea, PND, no palpitations, no syncope. PULMONARY: No chest wall tenderness, no hemoptysis. GASTROINTESTINAL: No diarrhea, no nausea, no vomiting, no abdominal pain. Normoactive bowel sounds. NEUROLOGICAL: No headaches, no weakness, no numbness. HEMATOLOGICAL: Denies any bleeding or petechiae. Active Medications Generic Name Dose Route Start Last Admin Trade Name Freq PRN Reason Stop Dose Admin Acetaminophen 650 mg 10/02/20 11:26 10/04/20 09:06 Acetaminophen Tab 325 Mg Tab PO 650 mg Q6HR PRN Administration Mild Pain or Fever > 100.5 Albuterol/Ipratropium 3 ml 10/04/20 08:00 10/05/20 20:00 Ipratropium-Albuterol 3 Ml Neb INHALATION 3 ml RT-QID WADE Administration Albuterol/Ipratropium 3 ml 10/03/20 21:23 10/03/20 21:27 Ipratropium-Albuterol 3 Ml Neb INHALATION 3 ml RT-Q2H PRN Administration Shortness Of Breath Or Wheezing Amiodarone HCl 400 mg 10/05/20 09:00 10/05/20 08:34 Amiodarone 200 Mg Tab PO 400 mg BID WADE Administration Atorvastatin Calcium 40 mg 10/03/20 20:00 10/04/20 23:41 Atorvastatin 40 Mg Tab PEG/G-TUBE 40 mg HS@2000 WADE Administration Budesonide 1 mg 10/04/20 08:00 10/05/20 20:00 Budesonide 1 Mg/2 Ml Nebu INHALATION 1 mg RT-BID WADE Administration Darbepoetin Alex 40 mcg 10/03/20 10:00 10/03/20 12:08 Darbepoetin Alex 40 Mcg/0.4 Ml Syringe SQ 40 mcg Q7D WADE Administration Piperacillin Sod/Tazobactam 100 mls @ 25 mls/hr 10/03/20 00:00 10/05/20 12:22 Sod 3.375 gm/ Sodium Chloride IVPB 25 mls/hr Q12H WADE Administration Ferric Sodium Gluconate 125 mg 110 mls @ 100 mls/hr 10/04/20 10:00 10/05/20 08:34 / Sodium Chloride IVPB 10/07/20 10:01 100 mls/hr DAILY WADE Administration Norepinephrine Bitartrate 4 mg 254 mls @ 14.383 mls/hr 10/04/20 10:30 06:48 / Sodium Chloride IV Not Given .[id number] WADE Protocol 0.05 MCG/KG/MIN Linezolid 600 mg/ IV Solution 300 mls @ 150 mls/hr 10/04/20 12:45 10/05/20 08:20 IVPB 150 mls/hr Q12HR WADE Administration Protocol Insulin Aspart 0 unit 10/04/20 00:00 10/05/20 17:26 Insulin Aspart (Novolog) 100 Unit/Ml Vial SQ 1 unit Q6H WADE Administration Protocol Levothyroxine Sodium 50 mcg 10/04/20 06:00 10/05/20 06:51 Levothyroxine 50 Mcg Tab PEG/G-TUBE 50 mcg DAILY@0600 WADE Administration Metoprolol Tartrate 25 mg 10/03/20 10:00 10/05/20 17:26 Metoprolol Tartrate 25 Mg Tab PO 25 mg TID WADE Administration Midodrine 10 mg 10/05/20 08:15 10/05/20 17:26 Midodrine 5 Mg Tab PO 10 mg Q8HR WADE Administration Naloxone HCl 0.2 mg 10/02/20 11:26 Naloxone 0.4 Mg/Ml 1 Ml Vial IV Q2M PRN Opioid Reversal Ondansetron HCl 4 mg 10/02/20 11:26 Ondansetron 4 Mg/2 Ml Vial IVP Q8HR PRN Nausea And Vomiting Pantoprazole Sodium 40 mg 10/04/20 21:00 10/05/20 08:34 Pantoprazole 40 Mg/10 Ml Vial IV 40 mg BID WADE Administration Quetiapine Fumarate 25 mg 10/03/20 21:00 10/04/20 23:42 Quetiapine 25 Mg Tab PO 25 mg HS WADE Administration Tamsulosin HCl 0.4 mg 10/03/20 09:30 10/05/20 08:34 Tamsulosin 0.4 Mg Cap.Er.24h PO 0.4 mg [id number] WADE Administration Objective - Vital Signs Vital signs: Vital Signs Temp 97.7 F 10/05/20 12:00 Pulse 62 10/05/20 12:00 Resp 34 H 10/05/20 12:00 BP 88/59 10/05/20 12:00 Pulse Ox 100 10/05/20 12:00 Intake & Output 10/04/20 10/05/20 10/05/20 18:59 06:59 18:59 Intake Total 2576.007 382 9947 Output Total 2740 685 1215 Balance -163.270 -380 505 Weight 78 kg Intake: IV 300 240 895 0.9NS 100 240 120 Dextrose 5% in Water 1, 100 000 ml @ 75 mls/hr IV . [id number] WADE Rx#:[id number] Linezolid 600 mg In 300 Dextrose/Water 1 300ml. bag @ 150 mls/hr IVPB Q12HR WADE Rx#:[id number] Piperacillin-Tazobactam 3 100 100 .375 gm In Sodium Chloride 0.9% 100 ml @ 25 mls/hr IVPB Q12H WADE Rx# :[id number] Sodium Ferric Gluconat- 125 Sucrose 125 mg In Sodium Chloride 0.9% 100 ml @ 100 mls/hr IVPB DAILY WADE Rx#:[id number] Vancomycin 1,250 mg In 250 Sodium Chloride 0.9% 250 ml @ 125 mls/hr IVPB Q24HR WADE Rx#:[id number] Intake, IV Titration 715.730 Amount Linezolid 600 mg In 300 Dextrose/Water 1 300ml. bag @ 150 mls/hr IVPB Q12HR WADE Rx#:[id number] Norepinephrine 4 mg In 65.730 Sodium Chloride 0.9% 250 ml @ 0.05 MCG/KG/MIN 14. 383 mls/hr IV .[id number] WADE Rx#:[id number] Sodium Ferric Gluconat- 100 Sucrose 125 mg In Sodium Chloride 0.9% 100 ml @ 100 mls/hr IVPB DAILY WADE Rx#:[id number] Vancomycin 1,250 mg In 250 Sodium Chloride 0.9% 250 ml @ 125 mls/hr IVPB Q24HR WADE Rx#:[id number] Tube Feeding 585 65 225 Blood Product 276 Rc Pheresis 2 As3 Unit 276 [id number] Other 700 600 Output: Urine 440 685 215 Stool 2300 1000 Other: Voiding Method Indwelling Catheter Indwelling Catheter Indwelling Catheter - Exam PHYSICAL EXAMINATION: Patient is lying in the bed comfortably, no acute distress, awake alert , able to follow commands. on trach collar.. HEENT: Normocephalic. Neck is supple. Pupils reactive. Nostrils clear. Oral cavity is moist. Ears reveal no drainage. Neck reveals no JVD, carotid bruits, or thyromegaly. CHEST EXAMINATION: Trachea is central. Symmetrical expansion. Lung valdez clear to auscultation and percussion. CARDIAC: Normal S1, S2 with no gallops. No murmurs ABDOMEN: Soft. Bowel sounds normal. No organomegaly. No abdominal bruits. Extremities: reveal no edema. No clubbing or cyanosis Neurologically awake, alert, oriented, with well-coordinated movements. No focal deficits noted Skin: No rash or skin lesions. Psychiatric: Coperative. Musculoskeletal: No joint swelling or deformity. - Labs CBC & Chem 7: 10/05/20 03:24 10/05/20 03:24 Labs: Abnormal Lab Results - Last 24 Hours (Table) 10/04/20 10/04/20 10/04/20 Range/Units 16:00 17:11 23:56 RBC 2.78 L (4.30-5.90) m/uL Hgb 7.8 L (13.0-17.5) gm/dL Hct 26.0 L (39.0-53.0) % MCHC 30.0 L (31.0-37.0) g/dL RDW 16.8 H (11.5-15.5) % Lymphocytes # (1.0-4.8) k/uL BUN (9-20) mg/dL Creatinine (0.66-1.25) mg/dL Glucose (74-99) mg/dL POC Glucose (mg/dL) 250 H 198 H (75-99) mg/dL Alkaline Phosphatase (38-126) U/L Total Protein (6.3-8.2) g/dL Albumin (3.5-5.0) g/dL 10/05/20 10/05/20 10/05/20 Range/Units 03:24 03:24 11:52 RBC 2.68 L (4.30-5.90) m/uL Hgb 7.7 L (13.0-17.5) gm/dL Hct 25.0 L (39.0-53.0) % MCHC 30.9 L (31.0-37.0) g/dL RDW 17.0 H (11.5-15.5) % Lymphocytes # 0.5 L (1.0-4.8) k/uL BUN 100 H (9-20) mg/dL Creatinine 3.22 H (0.66-1.25) mg/dL Glucose 185 H (74-99) mg/dL POC Glucose (mg/dL) 184 H (75-99) mg/dL Alkaline Phosphatase 145 H (38-126) U/L Total Protein 5.7 L (6.3-8.2) g/dL Albumin 2.5 L (3.5-5.0) g/dL Microbiology - Last 24 Hours (Table) 10/02/20 09:51 Blood Culture - Preliminary Blood No Growth after 72 hours 10/03/20 05:35 Gram Stain - Preliminary Sputum Sputum Culture - Preliminary Staphylococcus aureus Gram Neg Bacilli Assessment and Plan Assessment: Acute hypotension secondary to severe sepsis related to his pneumonia. Possible aspiration pneumonia Acute Hypoxic respiratory failure. on tach collar now. Acute kidney injury secondary to ATN secondary to hypotension and hemodynamic instability. on the top of chronic kidney disease 3 Abdominal wound at surgical site. General surgery recommends ileostomy. Hypernatremia Elevated lactic acid Elevated troponin, mostly secondary to tachycardia per lens coating technician History of triple vessel coronary artery disease status post bypass surgery on 09/18/2019 Atrial fibrillation on Eliquis (on hold) Stage II sacral pressure ulcer Recent history of intraperitoneal hemorrhage status post exploratory laparotomy with washout and ileostomy on 08/02/2020 Hypothyroidism Moderate to severe COPD, Remote history of nicotine dependence Chronic kidney disease stage II Hypertension Hyperlipidemia Type 2 diabetes mellitus No code Plan: This is a pleasant 80 years old male who presents with dyspnea and hypotension possible secondary to aspiration pneumonia. Start the patient on Zosyn. added Zyvox for staph and sputum. growing MSSA now. follow-up blood culture.Pulmonary and cardiology consult, continue with IV fluids, continue with oxygen as needed. Continue with amiodarone drip and metoprolol. Hold Eliquis and aspirin Quality Control Assessor and surgical team are consulted as well Check occult blood in the stool Labs and medication were reviewed.. Continue same treatment. Continue with symptomatic treatment. Resume home medication if patient able to take them. Monitor lytes and vitals. DVT and GI prophylaxis. Further recommendations depends on the clinical course of the patient DVT prophylaxis: Hold Eliquis and Eliquis aspirin. Continue with mechanical GI Prophylaxis: Protonix Prognosis is guarded Time with Patient: Greater than 30
--- NOTE | 2020-10-05 22:38 | PN ---
PROGRESS NOTE DATE OF SERVICE: 10/05/2020 REASON FOR FOLLOWUP: Pneumonia. INTERVAL HISTORY: The patient is currently afebrile. The patient is currently breathing comfortably on trach collar. Denies having any chest pain. Occasional cough. No abdominal pain or diarrhea has been reported. PHYSICAL EXAMINATION: Blood pressure 92/60 with a pulse of 69, temperature 98. He is 99% on trach collar. General description is an elderly male lying in bed in no distress. RESPIRATORY SYSTEM: Unlabored breathing with decreased breath sounds at the base. No wheeze. HEART: S1, S2. Regular rate and rhythm. ABDOMEN: Soft. No tenderness. LABS: Sputum with MSSA and Gram-negative bacilli. DIAGNOSTIC IMPRESSION AND PLAN: Patient with pneumonia. Sputum showing both Staph aureus and Gram-negative. Patient is covered with Zyvox and Zosyn; to continue while waiting for the ID of the Gram-negative before adjusting antibiotics further. Continue supportive care. MMODL / IJN: [id number] /
[2020-10-06 00:17] LABS: Glucose,Whole Blood 212 mg/dL (75-99)
[2020-10-06] MEDS: INSULIN ASPART (NovoLOG) 100 UNIT/ML VIAL SQ SCH ×5 (00:26→23:54)
[2020-10-06] MEDS: PIPERACILLIN-TAZOBACTAM 3.375 GM in SODIUM CHLORIDE 0.9% 100 ML IVPB SCH ×3 (00:26→23:54)
[2020-10-06 05:20] LABS: Glucose,Whole Blood 173 mg/dL (75-99)
[2020-10-06] MEDS: LEVOTHYROXINE 50 MCG TAB PEG/G-TUBE SCH (05:24)
[2020-10-06 06:05] LABS: Anisocytosis Slight; Basophils # (A) 0.1 k/uL (0-0.2); Basophils % (A) 1 %; Eosinophils # (A) 0.3 k/uL (0-0.7); Eosinophils % (A) 4 %; HCT 28.2 % (39.0-53.0); HGB 8.7 gm/dL (13.0-17.5); Hypochromasia Moderate; Lymphocytes # (A) 0.4 k/uL (1.0-4.8); Lymphocytes % (A) 5 %; MCH 27.8 pg (25.0-35.0); MCV 89.5 fL (80.0-100.0); Mean Platelet Volume 7.6; Monocytes # (A) 0.4 k/uL (0-1.0); Monocytes % (A) 6 %; Neutrophils % (A) 84 %; Platelet Count 256 k/uL (150-450); Poikilocytosis Slight; RBC 3.15 m/uL (4.30-5.90); RDW 16.9 % (11.5-15.5); WBC 7.1 k/uL (3.8-10.6)
[2020-10-06 06:17] LABS: Calcium 8.7 mg/dL (8.4-10.2); Potassium 3.8 mmol/L (3.5-5.1)
[2020-10-06] MEDS: BUDESONIDE 1 MG/2 ML NEBU INHALATION SCH ×2 (07:28→20:54)
[2020-10-06] MEDS: IPRATROPIUM-ALBUTEROL 3 ML NEB INHALATION SCH ×4 (07:29→20:54)
--- NOTE | 2020-10-06 07:40 | XR ---
EXAMINATION TYPE: XR chest 1V portable DATE OF EXAM: 10/06/2020 COMPARISON: 10/05/2020 INDICATION: Short of breath TECHNIQUE: Single frontal view of the chest is obtained. FINDINGS: The heart size is normal. The pulmonary vasculature is normal. Small bilateral pleural effusions are present greater on the left. Mild adjacent compressive atelecta sis is likely present. Emphysematous changes left upper lobe. Tracheostomy tube is in the midline. PICC line enters on the right with the tip near the axillary region IMPRESSION: 1. Small bilateral pleural effusions with bibasilar atelectasis.
[2020-10-06] MEDS ORDERED: SODIUM CHLORIDE 0.9% 500 ML 500 ML IV ONE (09:14)
[2020-10-06] MEDS: SODIUM FERRIC GLUCONAT-SUCROSE 125 MG in SODIUM CHLORIDE 0.9% 100 ML IVPB SCH (09:15)
[2020-10-06] MEDS: PANTOPRAZOLE 40 MG/10 ML VIAL IV SCH ×2 (09:16→21:29)
[2020-10-06] MEDS: MIDODRINE 5 MG TAB PO SCH ×3 (09:16→23:54)
[2020-10-06] MEDS: AMIODARONE 200 MG TAB PO SCH ×2 (09:16→21:28)
[2020-10-06] MEDS: METOPROLOL TARTRATE 25 MG TAB PO SCH ×3 (09:16→23:26)
[2020-10-06] MEDS: TAMSULOSIN 0.4 MG CAP.ER.24H PO SCH (09:16)
[2020-10-06] MEDS: LINEZOLID 600 MG in DEXTROSE/WATER 1 300ML.BAG IVPB SCH (09:16)
[2020-10-06] MEDS: CHOLESTYRAMINE (WITH SUGAR) 4 GM PACKET PO SCH ×2 (09:30→17:02)
--- NOTE | 2020-10-06 09:32 | P.PN ---
Subjective Progress Note Date: 10/06/20 Principal diagnosis: Paroxysmal atrial fibrillation This is a 80-year-old gentleman with coronary artery disease and status post coronary artery bypass grafting as well as chronic hypoxic respiratory failure as well as paroxysmal atrial fibrillation who was brought from the [facility] to the hospital because of increasing shortness of breath and possible underlying pneumonia likely to be aspiration pneumonia. The patient was seen today October [id number]. The patient is doing and feeling better. He has been maintaining normal sinus mechanism. We are continue to hold oral anticoagulation at this point in view of the anemia when he presented to the hospital. He still on small dose of norepinephrine which we are trying to wean him from. Objective - Vital Signs Vital signs: Vital Signs Temp 96.6 F L 10/06/20 04:00 Pulse 68 10/06/20 07:38 Resp 20 10/06/20 07:00 BP 92/52 10/06/20 07:00 Pulse Ox 99 10/06/20 07:00 Intake & Output 10/05/20 10/06/20 10/06/20 18:59 06:59 18:59 Intake Total 2110 2022.27 20 Output Total 2405 1100 390 Balance -295 923.27 -370 Weight 75.3 kg Intake: IV 1015 240 20 0.9NS 240 240 20 Linezolid 600 mg In 300 Dextrose/Water 1 300ml. bag @ 150 mls/hr IVPB Q12HR WADE Rx#:[id number] Piperacillin-Tazobactam 3 100 .375 gm In Sodium Chloride 0.9% 100 ml @ 25 mls/hr IVPB Q12H WADE Rx# :[id number] Sodium Ferric Gluconat- 125 Sucrose 125 mg In Sodium Chloride 0.9% 100 ml @ 100 mls/hr IVPB DAILY WADE Rx#:[id number] Vancomycin 1,250 mg In 250 Sodium Chloride 0.9% 250 ml @ 125 mls/hr IVPB Q24HR WADE Rx#:[id number] Intake, IV Titration 188.27 Amount Norepinephrine 4 mg In 188.27 Sodium Chloride 0.9% 250 ml @ 0.05 MCG/KG/MIN 14. 383 mls/hr IV .[id number] WADE Rx#:[id number] Tube Feeding 495 695 Other 600 900 Output: Urine 405 450 40 Stool 2000 650 350 Other: Voiding Method Indwelling Catheter Indwelling Catheter # Voids 125 - Constitutional General appearance: Present: no acute distress - Respiratory Respiratory: bilateral: diminished - Cardiovascular Rhythm: regular Heart sounds: normal: S1, S2 - Labs CBC & Chem 7: 10/06/20 05:45 10/06/20 05:45 Labs: Abnormal Lab Results - Last 24 Hours (Table) 10/05/20 10/05/20 10/06/20 Range/Units 11:52 16:16 00:16 RBC (4.30-5.90) m/uL Hgb (13.0-17.5) gm/dL Hct (39.0-53.0) % RDW (11.5-15.5) % Lymphocytes # (1.0-4.8) k/uL Carbon Dioxide (22-30) mmol/L BUN (9-20) mg/dL Creatinine (0.66-1.25) mg/dL Glucose (74-99) mg/dL POC Glucose (mg/dL) 184 H 157 H 212 H (75-99) mg/dL 10/06/20 10/06/20 10/06/20 Range/Units 05:18 05:45 05:45 RBC 3.15 L (4.30-5.90) m/uL Hgb 8.7 L (13.0-17.5) gm/dL Hct 28.2 L (39.0-53.0) % RDW 16.9 H (11.5-15.5) % Lymphocytes # 0.4 L (1.0-4.8) k/uL Carbon Dioxide 20 L (22-30) mmol/L BUN 93 H (9-20) mg/dL Creatinine 3.17 H (0.66-1.25) mg/dL Glucose 165 H (74-99) mg/dL POC Glucose (mg/dL) 173 H (75-99) mg/dL Microbiology - Last 24 Hours (Table) 10/03/20 05:35 Gram Stain - Final Sputum Sputum Culture - Final Staphylococcus aureus Klebsiella pneumoniae 10/02/20 09:51 Blood Culture - Preliminary Blood No Growth after 72 hours Assessment and Plan Assessment: Assessment #1 pneumonia/possible aspiration pneumonia/sepsis #2 marginal E low blood pressure #3 sinus tachycardia #4 mildly elevated troponin #5 paroxysmal atrial fibrillation #6 coronary artery disease and status post CABG #7 chronic hypoxic respiratory failure #8 acute on chronic renal failure Plan #1 continue the current medical regimen #2 continue holding oral anticoagulation #3 try to wean the patient from norepinephrine
--- NOTE | 2020-10-06 09:51 | P.PN ---
Subjective Patient is seen in follow-up for acute kidney injury on chronic kidney disease. Patient has chronic kidney disease stage IIIA with baseline creatinine in the range of 1.2-1.5. Renal function stable. Hemoglobin improved post blood transfusion. He is receiving tube feeding along with free water flushes. Maintained on low-dose Levophed. Vital signs: Blood pressure little on the lower side. On low-dose Levophed. General: The patient appeared well nourished and normally developed. HEENT: Tracheostomy noted. LUNGS:Breath sounds decreased. HEART: Regular rate and rhythm. ABDOMEN: Soft, nondistended. EXTREMITITES: No edema. Objective - Vital Signs Vital signs: Vital Signs Temp 96.6 F L 10/06/20 04:00 Pulse 68 10/06/20 07:38 Resp 20 10/06/20 07:00 BP 92/52 10/06/20 07:00 Pulse Ox 99 10/06/20 07:00 Intake & Output 10/05/20 10/06/20 10/06/20 18:59 06:59 18:59 Intake Total 2110 2022.27 20 Output Total 2405 1100 390 Balance -295 923.27 -370 Weight 75.3 kg Intake: IV 1015 240 20 0.9NS 240 240 20 Linezolid 600 mg In 300 Dextrose/Water 1 300ml. bag @ 150 mls/hr IVPB Q12HR WADE Rx#:[id number] Piperacillin-Tazobactam 3 100 .375 gm In Sodium Chloride 0.9% 100 ml @ 25 mls/hr IVPB Q12H WADE Rx# :[id number] Sodium Ferric Gluconat- 125 Sucrose 125 mg In Sodium Chloride 0.9% 100 ml @ 100 mls/hr IVPB DAILY WADE Rx#:[id number] Vancomycin 1,250 mg In 250 Sodium Chloride 0.9% 250 ml @ 125 mls/hr IVPB Q24HR WADE Rx#:[id number] Intake, IV Titration 188.27 Amount Norepinephrine 4 mg In 188.27 Sodium Chloride 0.9% 250 ml @ 0.05 MCG/KG/MIN 14. 383 mls/hr IV .[id number] WADE Rx#:[id number] Tube Feeding 495 695 Other 600 900 Output: Urine 405 450 40 Stool 2000 650 350 Other: Voiding Method Indwelling Catheter Indwelling Catheter # Voids 125 - Labs CBC & Chem 7: 10/06/20 05:45 10/06/20 05:45 Labs: Abnormal Lab Results - Last 24 Hours (Table) 10/05/20 10/05/20 10/06/20 Range/Units 11:52 16:16 00:16 RBC (4.30-5.90) m/uL Hgb (13.0-17.5) gm/dL Hct (39.0-53.0) % RDW (11.5-15.5) % Lymphocytes # (1.0-4.8) k/uL Carbon Dioxide (22-30) mmol/L BUN (9-20) mg/dL Creatinine (0.66-1.25) mg/dL Glucose (74-99) mg/dL POC Glucose (mg/dL) 184 H 157 H 212 H (75-99) mg/dL 10/06/20 10/06/20 10/06/20 Range/Units 05:18 05:45 05:45 RBC 3.15 L (4.30-5.90) m/uL Hgb 8.7 L (13.0-17.5) gm/dL Hct 28.2 L (39.0-53.0) % RDW 16.9 H (11.5-15.5) % Lymphocytes # 0.4 L (1.0-4.8) k/uL Carbon Dioxide 20 L (22-30) mmol/L BUN 93 H (9-20) mg/dL Creatinine 3.17 H (0.66-1.25) mg/dL Glucose 165 H (74-99) mg/dL POC Glucose (mg/dL) 173 H (75-99) mg/dL Microbiology - Last 24 Hours (Table) 10/03/20 05:35 Gram Stain - Final Sputum Sputum Culture - Final Staphylococcus aureus Klebsiella pneumoniae 10/02/20 09:51 Blood Culture - Preliminary Blood No Growth after 72 hours Assessment and Plan Plan: Assessment: 1. Acute kidney injury secondary to ATN secondary to hypotension and hemodynamic instability. Renal function stable. Creatinine 3.17 today. No hydronephrosis noted on kidney ultrasound. 2. Chronic kidney disease stage III with baseline creatinine 1.2-1.5 secondary to nephrosclerosis. 3. A. fib with RVR. Maintained on oral amiodarone. 4. Hypernatremia secondary to lack of oral water intake. Improved. Receiving free water flushes. 5. Mild hyperkalemia secondary to acute kidney injury. Resolved. Now a little hypokalemic, requiring intermittent potassium replacement. 6. Diabetes mellitus. 7. Anemia of chronic kidney disease. Maintained on Aranesp. Iron deficiency noted. Status post blood transfusion on October 04. Plan: Maintain tube feeding with free water flushes - decrease rate to free water flushes to 250 mL every 6 hours. 500 mL bolus of normal saline now as he is having quite a bit of diarrhea. Continue to monitor renal function and urine output. Avoid nephrotoxins. IV iron 3 doses. Third dose today. Wean Levophed. Maintain midodrine. Questran was added for the diarrhea.
--- NOTE | 2020-10-06 11:03 | P.PN ---
Subjective Progress Note Date: 10/06/20 CHIEF COMPLAINT: Respiratory distress HISTORY OF PRESENT ILLNESS: Patient seen and examined with Dr. Dempsey. Patient is being followed in regards to his abdominal wound at incision site. Patient remains in the ICU. He is awake. He denies any pain. Patient lying in bed comfortably. He is having issues with hypotension and has requiring Levophed during the evening. He is currently receiving fluid boluses. He is on midodrine. He is having a lot of output through his ileostomy. It appears yel lowish in color almost the color of the tube feedings. Patient is afebrile. WBC 7.1 Hgb 8.7 creatinine 3.17 patient has PEG tube feedings for nutrition support. Patient is on trach collar. PHYSICAL EXAM: VITAL SIGNS: Reviewed. GENERAL: Well-developed in no acute distress. HEENT: No sclera icterus. Extraocular movements grossly intact. Moist buccal mucosa. Head is atraumatic, normocephalic. ABDOMEN: Soft. Nondistended. Nontender. Dressing clean dry and intact. Patient has a yellowish liquidy stool coming through the ileostomy. NEUROLOGIC: Alert and oriented. Cranial nerves II through XII grossly intact. ASSESSMENT: 1. Abdominal wound at surgical incision site. 2. History of ischemic small bowel with evidence of pneumatosis status post small bowel resection on 07/24/2020. 3. History of intraperitoneal hemorrhage and small bowel ischemia status post exploratory laparotomy, washout of peritoneal cavity and ileostomy with small bowel resection on 08/02/2020 4. History of CABG in July 2020 5. Acute hypoxic respiratory failure secondary to pneumonia 6. Sepsis secondary to pneumonia 7. Acute kidney injury 8. Anemia: With known chronic kidney disease and iron deficiency. He did require blood transfusion PLAN: -Recommend ileostomy reversal when patient is medically stable -Continue wound care with Aquacel dressing -Continue supportive care -Continue ICU management Physician Garment Sewer Hand note has been reviewed by physician. Signing provider agrees with the documented findings, assessment, and plan of care. Objective - Vital Signs Vital signs: Vital Signs Temp 97.9 F 10/06/20 08:00 Pulse 67 10/06/20 10:58 Resp 12 10/06/20 10:00 BP 101/57 10/06/20 10:00 Pulse Ox 96 10/06/20 10:00 Intake & Output 10/05/20 10/06/20 10/06/20 18:59 06:59 18:59 Intake Total 2330 2043.27 1283.915 Output Total 2405 1100 985 Balance -75 943.27 298.915 Weight 75.3 kg Intake: IV 1015 240 920 0.9NS 240 240 20 Linezolid 600 mg In 300 300 Dextrose/Water 1 300ml. bag @ 150 mls/hr IVPB Q12HR [facility] Rx#:[id number] Piperacillin-Tazobactam 3 100 .375 gm In Sodium Chloride 0.9% 100 ml @ 25 mls/hr IVPB Q12H [facility] Rx# :[id number] Sodium Chloride 0.9% 500 500 ml 500 ml @ 999 mls/hr IV .Q31M [facility] Rx#:[id number] Sodium Ferric Gluconat- 125 100 Sucrose 125 mg In Sodium Chloride 0.9% 100 ml @ 100 mls/hr IVPB DAILY [facility] Rx#:[id number] Vancomycin 1,250 mg In 250 Sodium Chloride 0.9% 250 ml @ 125 mls/hr IVPB Q24HR [facility] Rx#:[id number] Intake, IV Titration 188.27 43.915 Amount Norepinephrine 4 mg In 188.27 43.915 Sodium Chloride 0.9% 250 ml @ 0.05 MCG/KG/MIN 14. 383 mls/hr IV .[id number] [facility] Rx#:[id number] Tube Feeding 715 715 195 Other 600 900 125 Output: Urine 405 450 160 Stool 2000 650 825 Other: Voiding Method Indwelling Catheter Indwelling Catheter # Voids 125 - Labs CBC & Chem 7: 10/06/20 05:45 10/06/20 05:45 Labs: Abnormal Lab Results - Last 24 Hours (Table) 10/05/20 10/05/20 10/06/20 Range/Units 11:52 16:16 00:16 RBC (4.30-5.90) m/uL Hgb (13.0-17.5) gm/dL Hct (39.0-53.0) % RDW (11.5-15.5) % Lymphocytes # (1.0-4.8) k/uL Carbon Dioxide (22-30) mmol/L BUN (9-20) mg/dL Creatinine (0.66-1.25) mg/dL Glucose (74-99) mg/dL POC Glucose (mg/dL) 184 H 157 H 212 H (75-99) mg/dL 10/06/20 10/06/20 10/06/20 Range/Units 05:18 05:45 05:45 RBC 3.15 L (4.30-5.90) m/uL Hgb 8.7 L (13.0-17.5) gm/dL Hct 28.2 L (39.0-53.0) % RDW 16.9 H (11.5-15.5) % Lymphocytes # 0.4 L (1.0-4.8) k/uL Carbon Dioxide 20 L (22-30) mmol/L BUN 93 H (9-20) mg/dL Creatinine 3.17 H (0.66-1.25) mg/dL Glucose 165 H (74-99) mg/dL POC Glucose (mg/dL) 173 H (75-99) mg/dL Microbiology - Last 24 Hours (Table) 10/03/20 05:35 Gram Stain - Final Sputum Sputum Culture - Final Staphylococcus aureus Klebsiella pneumoniae 10/02/20 09:51 Blood Culture - Preliminary Blood No Growth after 72 hours
[2020-10-06 11:45] LABS: Glucose,Whole Blood 233 mg/dL (75-99)
--- NOTE | 2020-10-06 13:31 | P.PN ---
Subjective Progress Note Date: 10/06/20 Principal diagnosis: Acute on chronic hypoxic respiratory failure secondary to left lower lobe pneumonia and sepsis. This is a 80-year-old white male familiar to my service, in July 2020, patient underwent elective coronary artery bypass grafting. He had a very complicated postoperative course, patient required multiple abdominal surgeries, multiple intubations, extubations, and the intubations, patient was a failure to wean, and he had multiple abdominal surgeries during his stay. Patient underwent tracheostomy, PEG tube placement, and we were able to transfer the pa esternt to an extended care facility. He was at the extended care facility until about a week ago, his tracheostomy was capped, and he was transferred to [facility] in [facility]. Patient has been noticing increased cough, increased shortness of breath, and significant purulent secretions from the tracheostomy tube when uncapped. O2 saturation was dipping down into the 50s and in the ER he had a saturation of 86% on 15 L high flow nasal cannula. Patient was also noted to have leukocytosis, hemoglobin was low, his troponin was slightly elevated, blood pressure was noted to be marginally low, patient was admitted initially to the cardiac floor, however supposedly he was noted to have blood pressure in the 70s systolic. Patient did receive multiple fluid boluses in the ER over 3 L were given, and we were notified about the patient on the floor having low blood pressure, I recommended transferred to the ICU planning to start the patient on norepinephrine. However over the last 12 hours in the ICU, his blood pressure has been stable patient did not require placement on any pressors. His beta blockers had been on hold because of low blood pressure, and he is maintained on amiodarone. His pro-calcitonin level was noted to be 2.60. And his chest x-ray showed left lower lobe atelectasis, suspect left lower lobe pneumonia. And he had small pleural effusions noted more so than right. Going back to his previous hospital admission, patient did have left lower lobe pneumonia and he did have left pleural effusion requiring thoracentesis once or twice. Cultures previously from the sputum were positive for Pseudomonas fluorescence/putida, sensitive to Zosyn and Levaquin and meropenem. Also sensitive to cefepime. Considering the patient's presentation with hypotension, shortness of breath, cough, abnormal chest x-ray, hypoxia, and considering his recent clinical history, we were asked to see him on consultation Patient was reevaluated today on 10/04/2020, patient remains in the ICU, he is on trach collar a 55%, patient went into atrial fibrillation with RVR yesterday, and he went on amiodarone at 1 mg/m, he also received 1 unit of packed RBCs for hemoglobin of 6.7, patient converted to sinus rhythm. Remains in sinus rhythm, patient is receiving tube feeds/Nepro at 65/65. He is also receiving free water. Chest x-ray is showing minimal improvement in the left lower lobe consolidation, clinically the patient is feeling better, he is empirically on antibiotics for healthcare acquired pneumonia/Zosyn. Previous sputum cultures were positive for Pseudomonas, hence his Zosyn was chosen as the drug of choice. CBC today showed WBC 7.2 hemoglobin 6.7, hence a unit of blood was given. Electrolytes showed low sodium but improving today is 148 from 150 to yesterday. BUN is 108 creatinine 3.4 to about the same as yesterday. Reevaluated today on 10/05/2020, patient remains in the ICU, remains on 55% trach collar. Off norepinephrine, IV fluids at KVO, tolerating enteral feeding via PEG tube, patient continues to have significant amount of tracheal secretions, he is now on Zosyn and vancomycin, as well as Zyvox. His cultures from the sputum are showing MSSA, hence we will discontinue vancomycin, keep him on Zosyn, and infectious disease to address his Zyvox. Patient may not even require Zyvox considering the culture is positive for MSSA. Chest x-ray is showing bilateral pleural effusions/small, renal functioning is slightly improved over the last 24 hours. Patient was switched to oral amiodarone, and he seems to be doing quite well, in sinus rhythm. Reevaluated today on 10/06/2020, patient remains in the ICU, remains on trach collar at 28%, sputum came back positive for Klebsiella and MSSA. Patient is on Zosyn and Zyvox. Remains on a small dose of norepinephrine at 0.01 mcg/kg/m, remains on enteral feeding/Nepro at 65 ML per hour, also receiving Questran. Patient continues to have significant output from his ileostomy. Patient is feeling better overall compared to how he felt on presentation. CBC today is relatively normal WBC count is 7.1 hemoglobin is 8.7, electrolytes are normal BUN is 93 creatinine is 3.17, improving over the last couple of days. Blood cultures remain negative. Again his sputum cultures are positive for MSSA and Klebsiella pneumonia. Objective - Vital Signs Vital signs: Vital Signs Temp 97.9 F 10/06/20 08:00 Pulse 68 10/06/20 11:06 Resp 28 H 10/06/20 11:00 BP 98/59 10/06/20 11:00 Pulse Ox 100 10/06/20 11:00 Intake & Output 10/05/20 10/06/20 10/06/20 18:59 06:59 18:59 Intake Total 2330 2043.27 1283.915 Output Total 2405 1100 1015 Balance -75 943.27 268.915 Weight 75.3 kg Intake: IV 1015 240 920 0.9NS 240 240 20 Linezolid 600 mg In 300 300 Dextrose/Water 1 300ml. bag @ 150 mls/hr IVPB Q12HR [facility] Rx#:[id number] Piperacillin-Tazobactam 3 100 .375 gm In Sodium Chloride 0.9% 100 ml @ 25 mls/hr IVPB Q12H [facility] Rx# :[id number] Sodium Chloride 0.9% 500 500 ml 500 ml @ 999 mls/hr IV .Q31M [facility] Rx#:[id number] Sodium Ferric Gluconat- 125 100 Sucrose 125 mg In Sodium Chloride 0.9% 100 ml @ 100 mls/hr IVPB DAILY [facility] Rx#:[id number] Vancomycin 1,250 mg In 250 Sodium Chloride 0.9% 250 ml @ 125 mls/hr IVPB Q24HR [facility] Rx#:[id number] Intake, IV Titration 188.27 43.915 Amount Norepinephrine 4 mg In 188.27 43.915 Sodium Chloride 0.9% 250 ml @ 0.05 MCG/KG/MIN 14. 383 mls/hr IV .[id number] [facility] Rx#:[id number] Tube Feeding 715 715 195 Other 600 900 125 Output: Urine 405 450 190 Stool 2000 650 825 Other: Voiding Method Indwelling Catheter Indwelling Catheter # Voids 125 125 - Exam Physical Exam: Revealed 80-year-old white male pleasant, on trach collar, 28% FiO2. HEENT:[Neck is supple.] [No neck masses.] [No thyromegaly.] [No JVD.] Chest: Symmetrical chest expansion, crackles and rhonchi noted bilaterally especially at the left base Cardiac Exam: [Normal S1 and S2, no S3 gallop, no murmur.] Abdomen: [Soft, nontender, no megaly, no rebound, no guarding, normal bowel sounds.] Surgical scar is noted in the mid abdomen, significant output is noted from his right ileostomy Extremities: [No clubbing, 1+ bipedal edema, no cyanosis.] Neurological Exam: Alert and oriented 3. [No focal neurologic deficit.] Psychiatric: Normal mood, affect and normal mental status examination. Skin: No rashes, surgical scar noted in the abdomen, some minimal drainage noted, clean dressing sedated - Labs CBC & Chem 7: 10/06/20 05:45 10/06/20 05:45 Labs: Abnormal Lab Results - Last 24 Hours (Table) 10/05/20 10/06/20 10/06/20 Range/Units 16:16 00:16 05:18 RBC (4.30-5.90) m/uL Hgb (13.0-17.5) gm/dL Hct (39.0-53.0) % RDW (11.5-15.5) % Lymphocytes # (1.0-4.8) k/uL Carbon Dioxide (22-30) mmol/L BUN (9-20) mg/dL Creatinine (0.66-1.25) mg/dL Glucose (74-99) mg/dL POC Glucose (mg/dL) 157 H 212 H 173 H (75-99) mg/dL 10/06/20 10/06/20 10/06/20 Range/Units 05:45 05:45 11:44 RBC 3.15 L (4.30-5.90) m/uL Hgb 8.7 L (13.0-17.5) gm/dL Hct 28.2 L (39.0-53.0) % RDW 16.9 H (11.5-15.5) % Lymphocytes # 0.4 L (1.0-4.8) k/uL Carbon Dioxide 20 L (22-30) mmol/L BUN 93 H (9-20) mg/dL Creatinine 3.17 H (0.66-1.25) mg/dL Glucose 165 H (74-99) mg/dL POC Glucose (mg/dL) 233 H (75-99) mg/dL Microbiology - Last 24 Hours (Table) 10/02/20 09:51 Blood Culture - Preliminary Blood No Growth after 96 hours 10/03/20 05:35 Gram Stain - Final Sputum Sputum Culture - Final Staphylococcus aureus Klebsiella pneumoniae Assessment and Plan Assessment: Impression: Hypotension secondary to sepsis secondary to left lower lobe pneumonia, also suspect significant component of hypovolemia in addition to his sepsis, strongly doubt septic shock. Acute on chronic hypoxic respiratory failure secondary to pneumonia and underlying COPD. Acute left lower lobe pneumonia, secondary to MSSA, and Klebsiella pneumonia Sepsis secondary to pneumonia involving the left lower lobe. Doubt septic shock. Patient responded to mostly IV fluids, and minimal infusion of norepinephrine briefly. Acute on chronic kidney injury secondary to sepsis. Moderate severe COPD. History of triple-vessel coronary artery disease, bypass surgery on 07/18/2020 with multiple postoperative complications History of tracheostomy mostly because of failure to wean. Benign essential hypertension. Type 2 diabetes. Dyslipidemia. Chronic atrial fibrillation. On amiodarone and on anticoagulation therapy History of hypothyroidism. History of ileostomy on 08/02/2020. Chronic anemia Recommendation: Continue present supportive care measures. Continue Zyvox and Zosyn. Continue GI and DVT prophylaxis. Continue bronchodilators. Continue amiodarone. Continue midodrine Continue fluids and may need boluses at times because of the significant output from the ileostomy. And titrate norepinephrine down to possibly discontinue. We'll continue to follow. Not quite ready to be transferred out of the ICU. Critical care time is over 30 minutes Time with Patient: Greater than 30
[2020-10-06] MEDS: NOREPINEPHRINE 4 MG in SODIUM CHLORIDE 0.9% 250 ML IV SCH (15:48)
--- NOTE | 2020-10-06 16:24 | PN ---
PROGRESS NOTE DATE OF SERVICE: 10/06/2020 REASON FOR FOLLOWUP: Nosocomial pneumonia. INTERVAL HISTORY: The patient is currently afebrile. The patient is slightly more awake and alert. He is breathing comfortably on a 5 L trach collar. The patient denies having any chest pain. Occasional cough. No abdominal pain and no diarrhea. PHYSICAL EXAMINATION: Blood pressure 95/47, pulse of 69, temperature of 97. He is 99% on 5 L trach collar. General description is an elderly male lying in bed in no distress. RESPIRATORY SYSTEM: Unlabored breathing, decreased breath sounds at the bases. No wheeze. HEART: S1, S2. Regular rate and rhythm. ABDOMEN: Soft, no tenderness. LABS: Hemoglobin 8.8, white count 7.1, BUN of 93, creatinine 3.17. Sputum showing Staph aureus MSSA and Klebsiella pneumoniae resistant to ampicillin, sulbactam, was sensitive to Zosyn. DIAGNOSTIC IMPRESSION AND PLAN: Patient with hospital pneumonia concerning for nosocomial. Sputum with MSSA and Klebsiella. Should be covered with Zosyn. Linezolid will be discontinued and clinical course will monitor closely. MMODL / IJN: [id number] /
[2020-10-06 17:40] LABS: Glucose,Whole Blood 185 mg/dL (75-99)
--- NOTE | 2020-10-06 20:02 | P.PN ---
Progress Note - Text Progress Note Date: 10/06/20 Interval history: This is a pleasant 80 years old male with past medical history of coronary art fuad disease, COPD, diabetes mellitus, hyperlipidemia, hypertension, hypothyroidism, coronary artery disease status post cardiac cath and stent placement. He recently underwent double coronary artery bypass grafting for his triple-vessel coronary artery disease. He was in the hospital from 07/18/20- 08/25/2020 pt has tracheostomhy and PEG tube , Information were obtained with the help of at bedside, he presents with confusion, and a lot of secretion Why he states that after been discharged from acute and he went to [facility] aren't states therefore one month and 5 days and then he was discharged a few days ago to halfway at [facility] on Friday, however over the weekend he has more congestion, he has weak cough and needed frequent suctioning, patient was able to talk weekly his little confused but he can't communicate through gesture, he denies pain but he is tachypneic He has tracheostomy, PEG tube and try to colostomy. Admitted with-hypotension secondary to severe sepsis secondary to pneumonia, aspiration pneumonia, acute hypoxic respiratory failure, acute kidney injury secondary to ATN, elevated sodium, increased lactic acid, elevated troponin felt to be from tachycardia. Recent history of intraperitoneal hemorrhage status post laboratory with washout and ileostomy on 08/02/2020. Today-ICU: Has a tracheostomy tube. 2 feedings at 65 mL an hour. Awake. Tired Review of systems: Was done for constitutional, cardiovascular, GI, pulmonary. relevant finding as above Active Medications Acetaminophen (Acetaminophen Tab 325 Mg Tab) 650 mg PO Q6HR PRN PRN Reason: Mild Pain or Fever > 100.5 Last Admin: 10/05/20 21:41 Dose: 650 mg Documented by: Albuterol/Ipratropium (Ipratropium-Albuterol 3 Ml Neb) 3 ml INHALATION RT-QID [facility] Last Admin: 10/06/20 15:12 Dose: 3 ml Documented by: Albuterol/Ipratropium (Ipratropium-Albuterol 3 Ml Neb) 3 ml INHALATION RT-Q2H PRN PRN Reason: Shortness Of Breath Or Wheezing Last Admin: 10/03/20 21:27 Dose: 3 ml Documented by: Amiodarone HCl (Amiodarone 200 Mg Tab) 400 mg PO BID [facility] Last Admin: 10/06/20 09:16 Dose: 400 mg Documented by: Atorvastatin Calcium (Atorvastatin 40 Mg Tab) 40 mg PEG/G-TUBE HS@2000 [facility] Last Admin: 10/05/20 21:42 Dose: 40 mg Documented by: Budesonide (Budesonide 1 Mg/2 Ml Nebu) 1 mg INHALATION RT-BID [facility] Last Admin: 10/06/20 07:28 Dose: 1 mg Documented by: Cholestyramine Resin (Cholestyramine (With Sugar) 4 Gm Packet) 4 gm PO BID@1000,1800 [facility] Last Admin: 10/06/20 17:02 Dose: 4 gm Documented by: Darbepoetin Alex (Darbepoetin Alex 40 Mcg/0.4 Ml Syringe) 40 mcg SQ Q7D [facility] Last Admin: 10/03/20 12:08 Dose: 40 mcg Documented by: Piperacillin Sod/Tazobactam (Sod 3.375 gm/ Sodium Chloride) 100 mls @ 25 mls/hr IVPB Q12H [facility] Last Admin: 10/06/20 12:17 Dose: 25 mls/hr Documented by: Ferric Sodium Gluconate 125 mg (/ Sodium Chloride) 110 mls @ 100 mls/hr IVPB DAILY [facility] Stop: 10/07/20 10:01 Last Admin: 10/06/20 09:15 Dose: 100 mls/hr Documented by: Norepinephrine Bitartrate 4 mg (/ Sodium Chloride) 254 mls @ 14.383 mls/hr IV .[id number] [facility]; Protocol Last Admin: 10/06/20 15:48 Dose: Not Given Documented by: Insulin Aspart (Insulin Aspart (Novolog) 100 Unit/Ml Vial) 0 unit SQ Q6H [facility]; Protocol Last Admin: 10/06/20 19:00 Dose: 1 unit Documented by: Levothyroxine Sodium (Levothyroxine 50 Mcg Tab) 50 mcg PEG/G-TUBE DAILY@0600 [facility] Last Admin: 10/06/20 05:24 Dose: 50 mcg Documented by: Metoprolol Tartrate (Metoprolol Tartrate 25 Mg Tab) 25 mg PO TID [facility] Last Admin: 10/06/20 17:02 Dose: 25 mg Documented by: Midodrine (Midodrine 5 Mg Tab) 10 mg PO Q8HR [facility] Last Admin: 10/06/20 17:02 Dose: 10 mg Documented by: Naloxone HCl (Naloxone 0.4 Mg/Ml 1 Ml Vial) 0.2 mg IV Q2M PRN PRN Reason: Opioid Reversal Ondansetron HCl (Ondansetron 4 Mg/2 Ml Vial) 4 mg IVP Q8HR PRN PRN Reason: Nausea And Vomiting Pantoprazole Sodium (Pantoprazole 40 Mg/10 Ml Vial) 40 mg IV BID [facility] Last Admin: 10/06/20 09:16 Dose: 40 mg Documented by: Quetiapine Fumarate (Quetiapine 25 Mg Tab) 25 mg PO HS [facility] Last Admin: 10/05/20 21:42 Dose: 25 mg Documented by: Tamsulosin HCl (Tamsulosin 0.4 Mg Cap.Er.24h) 0.4 mg PO PC-BRKFST [facility] Last Admin: 10/06/20 09:16 Dose: 0.4 mg Documented by: On examination: VITAL SIGNS: 97.7, 78, 22, 91/47, 96% on trach collar on 28% GENERAL APPEARANCE: Laying in bed, awake, tired HEENT: Normal external appearance of nose and ear. Oral cavity normal EYES: Pupils equal. Conjunctiva normal. NECK: JVD not raised. Mass not palpable. RESPIRATORY: Respiratory effort increased Lungs decreased breath sounds and crackles. CARDIOVASCULAR: First and second sounds normal. No edema. ABDOMEN: Soft. Liver and spleen not palpable. Ileostomy with yellow stool liquid. Dressing clean PSYCHIATRY: Alert and oriented x3. Mood and affect tired INVESTIGATIONS, reviewed in the clinical context: White count 7.1 hemoglobin 8.7 platelets 256 potassium 3.8 bicarbonate 20 bun 33 creatinine 3.17 Sputum culture-positive for Staphylococcus aureus MSSA, Klebsiella Pneumoniae Previous labs: White count 16.6 hemoglobin 9.9 platelets 584 bun 100 creatinine 3.18 Coronavirus PCR-not detected Renal ultrasound-normal bilateral renal ultrasound Assessment and plan: -Hypotensive shock remains on norepinephrine IV, on midodrine-slow to respond -Abdominal wound at surgical incision site, followed by general surgery with local dressing -History of ischemic small bowel with evidence of pneumatosis status post small bowel resection on 07/24/2020 -Ileostomy for intraperitoneal hemorrhage and small bowel ischemia status post exploratory laboratory or short of periportal cavity on 08/02/2020 -Coronary artery disease with bypass in July 2020 -Acute hypoxic respiratory failure secondary to pneumonia, continue with oxygen supplementation, currently with the trach collar -Sepsis secondary to pneumonia -Anemia secondary to chronic kidney disease -Acute kidney injury secondary to ATN secondary to hypotension and hemodynamic instability. -Chronic kidney disease stage III the baseline creatinine of 1.2-1.5 secondary to nephrosclerosis -Paroxysmal atrial fibrillation with rapid ventricular rate on amiodarone by mouth, Lopressor, converted to sinus rhythm -Hyponatremia secondary to decreased oral water intake. Receiving free water -Possible aspiration pneumonia, sputum positive for MSSA and Klebsiella pneumoniae. On IV Zosyn -Stage II sacral pressure ulcer, right heel decub -Hypothyroidism, continue Synthroid -Moderate to severe COPD, on bronchodilators, inhaled steroids -Diabetes mellitus type 2 -Essential hypertension -Hyperlipidemia, continue Lipitor -BPH on Flomax -Enteral tube feeding at 65 mL an hour -DO NOT RESUSCITATE Follow with pulmonary, ID, general surgery, cardiology.
[2020-10-06] MEDS: QUEtiapine 25 MG TAB PO SCH (21:29)
[2020-10-06] MEDS: ATORVASTATIN 40 MG TAB PEG/G-TUBE SCH (21:29)
[2020-10-06 23:44] LABS: Glucose,Whole Blood 173 mg/dL (75-99)
[2020-10-07 05:30] LABS: Anisocytosis Slight; Basophils % (A) 1 %; Eosinophils # (A) 0.2 k/uL (0-0.7); Eosinophils % (A) 2 %; HCT 26.4 % (39.0-53.0); HGB 8.2 gm/dL (13.0-17.5); Hypochromasia Marked; Lymphocytes # (A) 0.5 k/uL (1.0-4.8); Lymphocytes % (A) 7 %; MCH 27.8 pg (25.0-35.0); MCHC 31.2 g/dL (31.0-37.0); MCV 89.1 fL (80.0-100.0); Mean Platelet Volume 7.6; Monocytes # (A) 0.5 k/uL (0-1.0); Monocytes % (A) 7 %; Neutrophils # (A) 5.8 k/uL (1.3-7.7); Neutrophils % (A) 83 %; Platelet Count 271 k/uL (150-450); Poikilocytosis Slight; RBC 2.96 m/uL (4.30-5.90)
[2020-10-07 05:48] LABS: Calcium 8.7 mg/dL (8.4-10.2); Magnesium 1.4 mg/dL (1.6-2.3); Potassium 3.6 mmol/L (3.5-5.1)
[2020-10-07 05:59] LABS: Glucose,Whole Blood 140 mg/dL (75-99)
[2020-10-07] MEDS ORDERED: POTASSIUM BICARBONATE/CIT AC 20 MEQ TABLET.EFF NG-TUBE SCH (06:00)
--- NOTE | 2020-10-07 06:33 | P.PN ---
Subjective Progress Note Date: 10/07/20 Principal diagnosis: Paroxysmal atrial fibrillation This is a 80-year-old gentleman with coronary artery disease and status post coronary artery bypass grafting as well as chronic hypoxic respiratory failure as well as paroxysmal atrial fibrillation who was brought from [facility] to the hospital because of increasing shortness of breath and possible underlying pneumonia likely to be aspiration pneumonia. The patient was seen today 10/07/2020. He has been maintaining normal sinus mechanism. Hemodynamically he is stable and not requiring any vasopressors. He is on amiodarone as well as metoprolol. We are holding any oral anticoagulation because of the severe anemia when the patient presented to the hospital. Overall is doing slightly better. Objective - Vital Signs Vital signs: Vital Signs Temp 97.5 F L 10/07/20 04:00 Pulse 71 10/07/20 06:15 Resp 21 10/07/20 06:15 BP 95/63 10/07/20 06:15 Pulse Ox 99 10/07/20 06:15 Intake & Output 10/06/20 10/06/20 10/07/20 06:59 18:59 06:59 Intake Total 2043.27 2278.915 1340 Output Total 1100 1745 1055 Balance 943.27 533.915 285 Weight 75.3 kg 75.5 kg Intake: IV 240 1020 0 0.9NS 240 20 0 Linezolid 600 mg In 300 Dextrose/Water 1 300ml. bag @ 150 mls/hr IVPB Q12HR [facility] Rx#:[id number] Piperacillin-Tazobactam 3 100 .375 gm In Sodium Chloride 0.9% 100 ml @ 25 mls/hr IVPB Q12H [facility] Rx# :[id number] Sodium Chloride 0.9% 500 500 ml 500 ml @ 999 mls/hr IV .Q31M [facility] Rx#:[id number] Sodium Ferric Gluconat- 100 Sucrose 125 mg In Sodium Chloride 0.9% 100 ml @ 100 mls/hr IVPB DAILY [facility] Rx#:[id number] Intake, IV Titration 188.27 43.915 0 Amount Norepinephrine 4 mg In 188.27 43.915 0 Sodium Chloride 0.9% 250 ml @ 0.05 MCG/KG/MIN 14. 383 mls/hr IV .[id number] [facility] Rx#:[id number] Tube Feeding 715 715 715 Other 900 500 625 Output: Urine 450 420 430 Stool 650 1325 625 Other: Voiding Method Indwelling Catheter Indwelling Catheter Indwelling Catheter # Voids 125 125 150 - Constitutional General appearance: Present: no acute distress - Respiratory Respiratory: bilateral: diminished - Cardiovascular Rhythm: regular Heart sounds: normal: S1, S2 - Labs CBC & Chem 7: 10/07/20 04:56 10/07/20 04:56 Labs: Abnormal Lab Results - Last 24 Hours (Table) 10/06/20 10/06/20 10/06/20 Range/Units 11:44 17:38 23:42 RBC (4.30-5.90) m/uL Hgb (13.0-17.5) gm/dL Hct (39.0-53.0) % RDW (11.5-15.5) % Lymphocytes # (1.0-4.8) k/uL Carbon Dioxide (22-30) mmol/L BUN (9-20) mg/dL Creatinine (0.66-1.25) mg/dL Glucose (74-99) mg/dL POC Glucose (mg/dL) 233 H 185 H 173 H (75-99) mg/dL Magnesium (1.6-2.3) mg/dL 10/07/20 10/07/20 10/07/20 Range/Units 04:56 04:56 05:57 RBC 2.96 L (4.30-5.90) m/uL Hgb 8.2 L (13.0-17.5) gm/dL Hct 26.4 L (39.0-53.0) % RDW 17.0 H (11.5-15.5) % Lymphocytes # 0.5 L (1.0-4.8) k/uL Carbon Dioxide 20 L (22-30) mmol/L BUN 84 H (9-20) mg/dL Creatinine 2.90 H (0.66-1.25) mg/dL Glucose 123 H (74-99) mg/dL POC Glucose (mg/dL) 140 H (75-99) mg/dL Magnesium 1.4 L (1.6-2.3) mg/dL Microbiology - Last 24 Hours (Table) 10/02/20 09:51 Blood Culture - Preliminary Blood No Growth after 96 hours 10/03/20 05:35 Gram Stain - Final Sputum Sputum Culture - Final Staphylococcus aureus Klebsiella pneumoniae Assessment and Plan Assessment: Assessment #1 pneumonia/possible aspiration pneumonia/sepsis #2 marginal E low blood pressure #3 sinus tachycardia #4 mildly elevated troponin #5 paroxysmal atrial fibrillation #6 coronary artery disease and status post CABG #7 chronic hypoxic respiratory failure #8 acute on chronic renal failure Plan #1 continue the current medical regimen #2 continue holding anticoagulation at this point #3 follow-up with the patient
--- NOTE | 2020-10-07 06:39 | XR ---
EXAMINATION TYPE: XR chest 1V portable DATE OF EXAM: 10/07/2020 HISTORY: Shortness of breath. COMPARISON: 10/06/2020 TECHNIQUE: Single view of the chest is submitted. FINDINGS: Demonstrated are scattered senescent parenchymal change. Tracheostomy tube identified. Patchy perihilar and basilar infiltrates and small effusions noted. The heart is stable. Hilar and mediastinal structures are within normal limits. Degenerative changes are seen of the dorsal spine. IMPRESSION: 1. Patchy perihilar and basilar infiltrates and small effusions noted.
[2020-10-07 06:45] LABS: Glucose,Whole Blood 143 mg/dL (75-99)
[2020-10-07] MEDS: LEVOTHYROXINE 50 MCG TAB PEG/G-TUBE SCH (06:58)
[2020-10-07] MEDS: INSULIN ASPART (NovoLOG) 100 UNIT/ML VIAL SQ SCH ×3 (06:58→18:06)
[2020-10-07] MEDS: MAGNESIUM SULFATE-D5W PMX 1 GM in DEXTROSE/WATER 1 100ML.BAG IVPB SCH ×2 (06:58→09:46)
[2020-10-07] MEDS: IPRATROPIUM-ALBUTEROL 3 ML NEB INHALATION SCH ×4 (08:37→20:53)
[2020-10-07] MEDS: BUDESONIDE 1 MG/2 ML NEBU INHALATION SCH ×2 (08:37→20:52)
[2020-10-07] MEDS: SODIUM FERRIC GLUCONAT-SUCROSE 125 MG in SODIUM CHLORIDE 0.9% 100 ML IVPB SCH (09:45)
[2020-10-07] MEDS: PANTOPRAZOLE 40 MG/10 ML VIAL IV SCH (09:46)
[2020-10-07] MEDS: CHOLESTYRAMINE (WITH SUGAR) 4 GM PACKET PO SCH ×2 (09:46→18:07)
[2020-10-07] MEDS: METOPROLOL TARTRATE 25 MG TAB PO SCH ×3 (09:47→20:54)
[2020-10-07] MEDS: AMIODARONE 200 MG TAB PO SCH ×2 (09:47→20:53)
[2020-10-07] MEDS: TAMSULOSIN 0.4 MG CAP.ER.24H PO SCH (09:47)
[2020-10-07] MEDS: MIDODRINE 5 MG TAB PO SCH ×2 (09:47→16:30)
[2020-10-07] MEDS: NOREPINEPHRINE 4 MG in SODIUM CHLORIDE 0.9% 250 ML IV SCH (09:48)
--- NOTE | 2020-10-07 10:07 | P.PN ---
Subjective Progress Note Date: 10/07/20 Principal diagnosis: Abdominal wound Patient remains in the ICU. He is awake and alert. Tolerating tube feeds at goal. White blood cell count 7, hemoglobin 8.2. Objective - Vital Signs Vital signs: Vital Signs Temp 97.5 F L 10/07/20 04:00 Pulse 66 10/07/20 08:56 Resp 31 H 10/07/20 07:30 BP 95/53 10/07/20 07:30 Pulse Ox 98 10/07/20 07:30 Intake & Output 10/06/20 10/07/20 10/07/20 18:59 06:59 18:59 Intake Total 2278.915 1340 65 Output Total 1745 1055 30 Balance 533.915 285 35 Weight 75.5 kg Intake: IV 1020 0 0 0.9NS 20 0 0 Linezolid 600 mg In 300 Dextrose/Water 1 300ml. bag @ 150 mls/hr IVPB Q12HR [facility] Rx#:[id number] Piperacillin-Tazobactam 3 100 .375 gm In Sodium Chloride 0.9% 100 ml @ 25 mls/hr IVPB Q12H [facility] Rx# :[id number] Sodium Chloride 0.9% 500 500 ml 500 ml @ 999 mls/hr IV .Q31M [facility] Rx#:[id number] Sodium Ferric Gluconat- 100 Sucrose 125 mg In Sodium Chloride 0.9% 100 ml @ 100 mls/hr IVPB DAILY [facility] Rx#:[id number] Intake, IV Titration 43.915 0 Amount Norepinephrine 4 mg In 43.915 0 Sodium Chloride 0.9% 250 ml @ 0.05 MCG/KG/MIN 14. 383 mls/hr IV .[id number] [facility] Rx#:[id number] Tube Feeding 715 715 65 Other 500 625 Output: Urine 420 430 30 Stool 1325 625 Other: Voiding Method Indwelling Catheter Indwelling Catheter # Voids 125 150 - Exam Abdomen: Soft, nondistended, midline wound clean, ostomy functioning - Labs CBC & Chem 7: 10/07/20 04:56 10/07/20 04:56 Labs: Abnormal Lab Results - Last 24 Hours (Table) 10/06/20 10/06/20 10/06/20 Range/Units 11:44 17:38 23:42 RBC (4.30-5.90) m/uL Hgb (13.0-17.5) gm/dL Hct (39.0-53.0) % RDW (11.5-15.5) % Lymphocytes # (1.0-4.8) k/uL Carbon Dioxide (22-30) mmol/L BUN (9-20) mg/dL Creatinine (0.66-1.25) mg/dL Glucose (74-99) mg/dL POC Glucose (mg/dL) 233 H 185 H 173 H (75-99) mg/dL Magnesium (1.6-2.3) mg/dL 10/07/20 10/07/20 10/07/20 Range/Units 04:56 04:56 05:57 RBC 2.96 L (4.30-5.90) m/uL Hgb 8.2 L (13.0-17.5) gm/dL Hct 26.4 L (39.0-53.0) % RDW 17.0 H (11.5-15.5) % Lymphocytes # 0.5 L (1.0-4.8) k/uL Carbon Dioxide 20 L (22-30) mmol/L BUN 84 H (9-20) mg/dL Creatinine 2.90 H (0.66-1.25) mg/dL Glucose 123 H (74-99) mg/dL POC Glucose (mg/dL) 140 H (75-99) mg/dL Magnesium 1.4 L (1.6-2.3) mg/dL 10/07/20 Range/Units 06:44 RBC (4.30-5.90) m/uL Hgb (13.0-17.5) gm/dL Hct (39.0-53.0) % RDW (11.5-15.5) % Lymphocytes # (1.0-4.8) k/uL Carbon Dioxide (22-30) mmol/L BUN (9-20) mg/dL Creatinine (0.66-1.25) mg/dL Glucose (74-99) mg/dL POC Glucose (mg/dL) 143 H (75-99) mg/dL Magnesium (1.6-2.3) mg/dL Microbiology - Last 24 Hours (Table) 10/02/20 09:51 Blood Culture - Preliminary Blood No Growth after 96 hours 10/03/20 05:35 Gram Stain - Final Sputum Sputum Culture - Final Staphylococcus aureus Klebsiella pneumoniae Assessment and Plan (1) Surgical wound dehiscence Narrative/Plan: Patient doing fairly well. Continue local wound care. Continue tube feeds at goal. We'll follow. Current Visit: Yes Status: Acute Code(s): T81.31XA - DISRUPTION OF EXTERNAL OPERATION (SURGICAL) WOUND, NEC, INIT SNOMED Code(s): 93905620
[2020-10-07 12:22] LABS: Glucose,Whole Blood 150 mg/dL (75-99)
--- NOTE | 2020-10-07 12:44 | P.PN ---
Subjective Progress Note Date: 10/07/20 Principal diagnosis: Acute on chronic hypoxic respiratory failure secondary to left lower lobe pneumonia and sepsis. This is a 80-year-old white male familiar to my service, in July 2020, patient underwent elective coronary artery bypass grafting. He had a very complicated postoperative course, patient required multiple abdominal surgeries, multiple intubations, extubations, and the intubations, patient was a failure to wean, and he had multiple abdominal surgeries during his stay. Patient underwent tracheostomy, PEG tube placement, and we were able to transfer the pa esternt to an extended care facility. He was at the extended care facility until about a week ago, his tracheostomy was capped, and he was transferred to [facility] in [facility]. Patient has been noticing increased cough, increased shortness of breath, and significant purulent secretions from the tracheostomy tube when uncapped. O2 saturation was dipping down into the 50s and in the ER he had a saturation of 86% on 15 L high flow nasal cannula. Patient was also noted to have leukocytosis, hemoglobin was low, his troponin was slightly elevated, blood pressure was noted to be marginally low, patient was admitted initially to the cardiac floor, however supposedly he was noted to have blood pressure in the 70s systolic. Patient did receive multiple fluid boluses in the ER over 3 L were given, and we were notified about the patient on the floor having low blood pressure, I recommended transferred to the ICU planning to start the patient on norepinephrine. However over the last 12 hours in the ICU, his blood pressure has been stable patient did not require placement on any pressors. His beta blockers had been on hold because of low blood pressure, and he is maintained on amiodarone. His pro-calcitonin level was noted to be 2.60. And his chest x-ray showed left lower lobe atelectasis, suspect left lower lobe pneumonia. And he had small pleural effusions noted more so than right. Going back to his previous hospital admission, patient did have left lower lobe pneumonia and he did have left pleural effusion requiring thoracentesis once or twice. Cultures previously from the sputum were positive for Pseudomonas fluorescence/putida, sensitive to Zosyn and Levaquin and meropenem. Also sensitive to cefepime. Considering the patient's presentation with hypotension, shortness of breath, cough, abnormal chest x-ray, hypoxia, and considering his recent clinical history, we were asked to see him on consultation Patient was reevaluated today on 10/04/2020, patient remains in the ICU, he is on trach collar a 55%, patient went into atrial fibrillation with RVR yesterday, and he went on amiodarone at 1 mg/m, he also received 1 unit of packed RBCs for hemoglobin of 6.7, patient converted to sinus rhythm. Remains in sinus rhythm, patient is receiving tube feeds/Nepro at 65/65. He is also receiving free water. Chest x-ray is showing minimal improvement in the left lower lobe consolidation, clinically the patient is feeling better, he is empirically on antibiotics for healthcare acquired pneumonia/Zosyn. Previous sputum cultures were positive for Pseudomonas, hence his Zosyn was chosen as the drug of choice. CBC today showed WBC 7.2 hemoglobin 6.7, hence a unit of blood was given. Electrolytes showed low sodium but improving today is 148 from 150 to yesterday. BUN is 108 creatinine 3.4 to about the same as yesterday. Reevaluated today on 10/05/2020, patient remains in the ICU, remains on 55% trach collar. Off norepinephrine, IV fluids at KVO, tolerating enteral feeding via PEG tube, patient continues to have significant amount of tracheal secretions, he is now on Zosyn and vancomycin, as well as Zyvox. His cultures from the sputum are showing MSSA, hence we will discontinue vancomycin, keep him on Zosyn, and infectious disease to address his Zyvox. Patient may not even require Zyvox considering the culture is positive for MSSA. Chest x-ray is showing bilateral pleural effusions/small, renal functioning is slightly improved over the last 24 hours. Patient was switched to oral amiodarone, and he seems to be doing quite well, in sinus rhythm. Reevaluated today on 10/06/2020, patient remains in the ICU, remains on trach collar at 28%, sputum came back positive for Klebsiella and MSSA. Patient is on Zosyn and Zyvox. Remains on a small dose of norepinephrine at 0.01 mcg/kg/m, remains on enteral feeding/Nepro at 65 ML per hour, also receiving Questran. Patient continues to have significant output from his ileostomy. Patient is feeling better overall compared to how he felt on presentation. CBC today is relatively normal WBC count is 7.1 hemoglobin is 8.7, electrolytes are normal BUN is 93 creatinine is 3.17, improving over the last couple of days. Blood cultures remain negative. Again his sputum cultures are positive for MSSA and Klebsiella pneumonia. Reevaluated today on 10/07/2020, patient remains in the ICU, remains on trach collar at 28%, receiving antibiotics for his Klebsiella and MSSA pneumonia. Patient is only on Zosyn, and his Zyvox was discontinued since it was initially started by infectious disease for possible MRSA. Patient is requiring intermittently small doses of norepinephrine, clinically however the patient is much better compared to how he felt when he came in. He is in no distress, this morning he is off norepinephrine, but he didn't require norepinephrine last night, hence I will not transfer the patient out of the ICU yet. Chest x-ray continues to show by basilar atelectasis, possible left lower lobe consolidation which is chronic. Secretions from the tracheostomy are less and less. Renal profile is improving, creatinine is down to 2.9. CBC is normal. Electrolytes are normal. Objective - Vital Signs Vital signs: Vital Signs Temp 97.5 F L 10/07/20 04:00 Pulse 70 10/07/20 12:19 Resp 31 H 10/07/20 07:30 BP 95/53 10/07/20 07:30 Pulse Ox 98 10/07/20 07:30 Intake & Output 10/06/20 10/07/20 10/07/20 18:59 06:59 18:59 Intake Total 2278.915 1340 425 Output Total 1745 1055 240 Balance 533.915 285 185 Weight 75.5 kg Intake: IV 1020 0 230 0.9NS 20 0 30 Linezolid 600 mg In 300 Dextrose/Water 1 300ml. bag @ 150 mls/hr IVPB Q12HR [facility] Rx#:[id number] Magnesium Sulfate-D5w Pmx 100 1 gm In Dextrose/Water 1 100ml.bag @ 100 mls/hr IVPB Q1H [facility] Rx#: [id number] Piperacillin-Tazobactam 3 100 .375 gm In Sodium Chloride 0.9% 100 ml @ 25 mls/hr IVPB Q12H [facility] Rx# :[id number] Sodium Chloride 0.9% 500 500 ml 500 ml @ 999 mls/hr IV .Q31M [facility] Rx#:[id number] Sodium Ferric Gluconat- 100 100 Sucrose 125 mg In Sodium Chloride 0.9% 100 ml @ 100 mls/hr IVPB DAILY [facility] Rx#:[id number] Intake, IV Titration 43.915 0 Amount Norepinephrine 4 mg In 43.915 0 Sodium Chloride 0.9% 250 ml @ 0.05 MCG/KG/MIN 14. 383 mls/hr IV .[id number] [facility] Rx#:[id number] Tube Feeding 715 715 195 Other 500 625 Output: Urine 420 430 240 Stool 1325 625 Other: Voiding Method Indwelling Catheter Indwelling Catheter Indwelling Catheter # Voids 125 150 - Exam Physical Exam: Revealed 80-year-old white male [place], on trach collar, 30% FiO2. HEENT:[Neck is supple.] [No neck masses.] [No thyromegaly.] [No JVD.] Tracheostomy is intact. Chest: Symmetrical chest expansion, crackles and rhonchi noted bilaterally especially at the left base Cardiac Exam: [Normal S1 and S2, no S3 gallop, no murmur.] Abdomen: [Soft, nontender, no megaly, no rebound, no guarding, normal bowel sounds.] Surgical scar is noted in the mid abdomen, significant output is noted from his right ileostomy, patient has a fecal management system applied. Extremities: [No clubbing, 1+ bipedal edema, no cyanosis.] Neurological Exam: Alert and oriented 3. [No focal neurologic deficit.] Psychiatric: Normal mood, affect and normal mental status examination. Skin: No rashes, surgical scar noted in the abdomen, some minimal drainage noted, clean dressing sedated - Labs CBC & Chem 7: 10/07/20 04:56 10/07/20 04:56 Labs: Abnormal Lab Results - Last 24 Hours (Table) 10/06/20 10/06/20 10/07/20 Range/Units 17:38 23:42 04:56 RBC 2.96 L (4.30-5.90) m/uL Hgb 8.2 L (13.0-17.5) gm/dL Hct 26.4 L (39.0-53.0) % RDW 17.0 H (11.5-15.5) % Lymphocytes # 0.5 L (1.0-4.8) k/uL Carbon Dioxide (22-30) mmol/L BUN (9-20) mg/dL Creatinine (0.66-1.25) mg/dL Glucose (74-99) mg/dL POC Glucose (mg/dL) 185 H 173 H (75-99) mg/dL Magnesium (1.6-2.3) mg/dL 10/07/20 10/07/20 10/07/20 Range/Units 04:56 05:57 06:44 RBC (4.30-5.90) m/uL Hgb (13.0-17.5) gm/dL Hct (39.0-53.0) % RDW (11.5-15.5) % Lymphocytes # (1.0-4.8) k/uL Carbon Dioxide 20 L (22-30) mmol/L BUN 84 H (9-20) mg/dL Creatinine 2.90 H (0.66-1.25) mg/dL Glucose 123 H (74-99) mg/dL POC Glucose (mg/dL) 140 H 143 H (75-99) mg/dL Magnesium 1.4 L (1.6-2.3) mg/dL 10/07/20 Range/Units 12:20 RBC (4.30-5.90) m/uL Hgb (13.0-17.5) gm/dL Hct (39.0-53.0) % RDW (11.5-15.5) % Lymphocytes # (1.0-4.8) k/uL Carbon Dioxide (22-30) mmol/L BUN (9-20) mg/dL Creatinine (0.66-1.25) mg/dL Glucose (74-99) mg/dL POC Glucose (mg/dL) 150 H (75-99) mg/dL Magnesium (1.6-2.3) mg/dL Microbiology - Last 24 Hours (Table) 10/02/20 09:51 Blood Culture - Preliminary Blood No Growth after 120 hours 10/03/20 05:35 Gram Stain - Final Sputum Sputum Culture - Final Staphylococcus aureus Klebsiella pneumoniae Assessment and Plan Assessment: Impression: Hypotension secondary to sepsis secondary to left lower lobe pneumonia, also suspect significant component of hypovolemia in addition to his sepsis, strongly doubt septic shock. Acute on chronic hypoxic respiratory failure secondary to pneumonia and un derlying COPD. Acute left lower lobe pneumonia, secondary to MSSA, and Klebsiella pneumonia Sepsis secondary to pneumonia involving the left lower lobe. Doubt septic shock. Patient does have lumbar blood pressure intermittently requiring norepinephrine, but I believe this is mostly hypovolemia related.. Acute on chronic kidney injury secondary to sepsis. Moderate severe COPD. History of triple-vessel coronary artery disease, bypass surgery on 07/18/2020 with multiple postoperative complications History of tracheostomy mostly because of failure to wean. Benign essential hypertension. Type 2 diabetes. Dyslipidemia. Chronic atrial fibrillation. On amiodarone and on anticoagulation therapy History of hypothyroidism. History of ileostomy on 08/02/2020. Chronic anemia Recommendation: Continue IV fluids and close monitoring of his fluid status. Continue present supportive care measures. Continue Zosyn, and discontinue Zyvox Continue GI and DVT prophylaxis. Continue bronchodilators. Continue amiodarone. Continue midodrine Continue fluids and may need boluses at times because of the significant output from the ileostomy. And titrate norepinephrine down to possibly discontinue. We'll continue to follow. Not quite ready to be transferred out of the ICU. Critical care time is over 30 minutes Time with Patient: Greater than 30
[2020-10-07] MEDS: PIPERACILLIN-TAZOBACTAM 3.375 GM in SODIUM CHLORIDE 0.9% 100 ML IVPB SCH (12:45)
--- NOTE | 2020-10-07 14:55 | PN ---
PROGRESS NOTE Patient is seen for followup for acute kidney injury. Patient's renal function has improved. His creatinine is down to 2.9 from about 3.4 three days ago. Patient is currently not on any diuretics or IV fluids. He is awake, comfortable, not in any acute distress. PHYSICAL EXAMINATION: Blood pressure this morning was 101/64, heart rate 71 per minute he is afebrile. Examination of the heart S1, S2. Examination of the lungs, decreased breath sounds bases. Abdomen is soft, nontender. Examination of lower extremities shows no significant edema. [employer] exam shows patient moving his extremities, following simple commands. LAB: Show sodium 138, potassium 3.6, chloride 107, CO2 is 20, BUN 84, creatinine 2.9, hemoglobin 8.2 g/dL. Magnesium 1.4. ASSESSMENT: 1. Acute kidney injury, acute tubular necrosis which is mostly ischemic secondary to low blood pressure and hemodynamic instability, currently improved. 2. Chronic kidney disease stage 3. Baseline creatinine 1.2-1.5 secondary to nephrosclerosis. 3. Atrial fibrillation with rapid ventricular response, now with controlled ventricular response. 4. Anemia of chronic disease maintained on Aranesp status post IV iron for an element of iron deficiency as well. 5. Hypernatremia, now improved. PLAN: Replace magnesium. Continue with the free water flushes. Repeat labs in a.m. Continue to avoid nephrotoxic agents. MMODL / IJN: [id number] /
--- NOTE | 2020-10-07 15:38 | PN ---
PROGRESS NOTE DATE OF SERVICE: 10/07/2020 REASON FOR FOLLOWUP: Pneumonia. INTERVAL HISTORY: The patient is currently afebrile. Patient is more awake, alert. The patient denies any chest pain. He did have a congested cough, not bringing up sputum. No abdominal pain and no diarrhea reported. PHYSICAL EXAMINATION: Blood pressure 106/50 with a pulse of 73, temperature 97.6. He is 98% on trach collar. General description is an elderly male lying in bed in no distress. Respiratory system: Unlabored breathing. Coarse breath sounds bilaterally. No wheeze. Heart S1, S2. Regular rate and rhythm. Abdomen soft. No tenderness. LABS: Hemoglobin 8.1, white count 7.3, BUN of 84, creatinine is 2.90. DIAGNOSTIC IMPRESSION AND PLAN: Patient with pneumonia. Sputum positive for Klebsiella and MSSA. The patient is covered with Zosyn to continue and monitor clinical course closely. Continue supportive care. MMODL / IJN: [id number] /
[2020-10-07 18:02] LABS: Glucose,Whole Blood 150 mg/dL (75-99)
--- NOTE | 2020-10-07 18:26 | P.PN ---
Progress Note - Text Progress Note Date: 10/07/20 Interval history: This is a pleasant 80 years old male with past medical history of coronary art fuad disease, COPD, diabetes mellitus, hyperlipidemia, hypertension, hypothyroidism, coronary artery disease status post cardiac cath and stent placement. He recently underwent double coronary artery bypass grafting for his triple-vessel coronary artery disease. He was in the hospital from 07/18/20- 08/25/2020 pt has tracheostomhy and PEG tube , Information were obtained with the help of at bedside, he presents with confusion, and a lot of secretion Why he states that after been discharged from acute and he went to [facility] aren't states therefore one month and 5 days and then he was discharged a few days ago to senior care at [facility] on Friday, however over the weekend he has more congestion, he has weak cough and needed frequent suctioning, patient was able to talk weekly his little confused but he can't communicate through gesture, he denies pain but he is tachypneic He has tracheostomy, PEG tube and try to colostomy. Admitted with-hypotension secondary to severe sepsis secondary to pneumonia, aspiration pneumonia, acute hypoxic respiratory failure, acute kidney injury secondary to ATN, elevated sodium, increased lactic acid, elevated troponin felt to be from tachycardia. Recent history of intraperitoneal hemorrhage status post laboratory with washout and ileostomy on 08/02/2020. Today-ICU: Has a tracheostomy tube. tube feedings at 65 mL an hour. Awake. Tired. Ileostomy putting out yellow stool. Off norepinephrine since last night Review of systems: Attempted for constitutional, cardiovascular, GI, pulmonary. relevant finding as above Active Medications Acetaminophen (Acetaminophen Tab 325 Mg Tab) 650 mg PO Q6HR PRN PRN Reason: Mild Pain or Fever > 100.5 Last Admin: 10/05/20 21:41 Dose: 650 mg Documented by: Albuterol/Ipratropium (Ipratropium-Albuterol 3 Ml Neb) 3 ml INHALATION RT-QID [facility] Last Admin: 10/07/20 15:19 Dose: 3 ml Documented by: Albuterol/Ipratropium (Ipratropium-Albuterol 3 Ml Neb) 3 ml INHALATION RT-Q2H PRN PRN Reason: Shortness Of Breath Or Wheezing Last Admin: 10/03/20 21:27 Dose: 3 ml Documented by: Amiodarone HCl (Amiodarone 200 Mg Tab) 400 mg PO BID [facility] Last Admin: 10/07/20 09:47 Dose: 400 mg Documented by: Atorvastatin Calcium (Atorvastatin 40 Mg Tab) 40 mg PEG/G-TUBE HS@2000 [facility] Last Admin: 10/06/20 21:29 Dose: 40 mg Documented by: Budesonide (Budesonide 1 Mg/2 Ml Nebu) 1 mg INHALATION RT-BID [facility] Last Admin: 10/07/20 08:37 Dose: 1 mg Documented by: Cholestyramine Resin (Cholestyramine (With Sugar) 4 Gm Packet) 4 gm PO BID@1000,1800 [facility] Last Admin: 10/07/20 18:07 Dose: 4 gm Documented by: Darbepoetin Alex (Darbepoetin Alex 40 Mcg/0.4 Ml Syringe) 40 mcg SQ Q7D [facility] Last Admin: 10/03/20 12:08 Dose: 40 mcg Documented by: Piperacillin Sod/Tazobactam (Sod 3.375 gm/ Sodium Chloride) 100 mls @ 25 mls/hr IVPB Q12H [facility] Last Admin: 10/07/20 12:45 Dose: 25 mls/hr Documented by: Norepinephrine Bitartrate 4 mg (/ Sodium Chloride) 254 mls @ 14.383 mls/hr IV .[id number] [facility]; Protocol Last Admin: 10/07/20 09:48 Dose: Not Given Documented by: Insulin Aspart (Insulin Aspart (Novolog) 100 Unit/Ml Vial) 0 unit SQ Q6H [facility]; P rotocol Last Admin: 10/07/20 18:06 Dose: 1 unit Documented by: Levothyroxine Sodium (Levothyroxine 50 Mcg Tab) 50 mcg PEG/G-TUBE DAILY@0600 [facility] Last Admin: 10/07/20 06:58 Dose: 50 mcg Documented by: Metoprolol Tartrate (Metoprolol Tartrate 25 Mg Tab) 25 mg PO TID [facility] Last Admin: 10/07/20 16:30 Dose: 25 mg Documented by: Midodrine (Midodrine 5 Mg Tab) 10 mg PO Q8HR [facility] Last Admin: 10/07/20 16:30 Dose: 10 mg Documented by: Naloxone HCl (Naloxone 0.4 Mg/Ml 1 Ml Vial) 0.2 mg IV Q2M PRN PRN Reason: Opioid Reversal Ondansetron HCl (Ondansetron 4 Mg/2 Ml Vial) 4 mg IVP Q8HR PRN PRN Reason: Nausea And Vomiting Pantoprazole Sodium (Pantoprazole 40 Mg/10 Ml Vial) 40 mg IV BID [facility] Last Admin: 10/07/20 09:46 Dose: 40 mg Documented by: Quetiapine Fumarate (Quetiapine 25 Mg Tab) 25 mg PO HS [facility] Last Admin: 10/06/20 21:29 Dose: 25 mg Documented by: Tamsulosin HCl (Tamsulosin 0.4 Mg Cap.Er.24h) 0.4 mg PO PC-[id number] [facility] Last Admin: 10/07/20 09:47 Dose: 0.4 mg Documented by: On examination: VITAL SIGNS: 97.6, 71, 15, 85/61, 96% on trach collar, GENERAL APPEARANCE: Laying in bed, awake, tired HEENT: Normal external appearance of nose and ear. . Trach collar with shield EYES: Pupils equal. Conjunctiva normal. NECK: JVD not raised. Mass not palpable. RESPIRATORY: Respiratory effort increased Lungs decreased breath sounds and crackles. CARDIOVASCULAR: First and second sounds normal. No edema. ABDOMEN: Soft. Liver and spleen not palpable. Ileostomy with yellow stool liquid. Dressing clean PSYCHIATRY: Alert and oriented x3. Mood and affect tired INVESTIGATIONS, reviewed in the clinical context: October 07: White count 7 hemoglobin 8.2 platelets 271 potassium 3.6 creatinine 2.9 White count 7.1 hemoglobin 8.7 platelets 256 potassium 3.8 bicarbonate 20 bun 33 creatinine 3.17 Sputum culture-positive for Staphylococcus aureus MSSA, Klebsiella Pneumoniae Previous labs: White count 16.6 hemoglobin 9.9 platelets 584 bun 100 creatinine 3.18 Coronavirus PCR-not detected Renal ultrasound-normal bilateral renal ultrasound Assessment and plan: -Hypotensive shock -better. remains off norepinephrine IV since last night, on midodrine- -Abdominal wound at surgical incision site, followed by general surgery with local dressing -History of ischemic small bowel with evidence of pneumatosis status post small bowel resection on 07/24/2020 -Ileostomy for intraperitoneal hemorrhage and small bowel ischemia status post exploratory laboratory or short of periportal cavity on 08/02/2020 -Coronary artery disease with bypass in July 2020, and Lopressor. Aspirin -Acute hypoxic respiratory failure secondary to pneumonia, continue with oxygen supplementation, currently with the trach collar -Sepsis secondary to pneumonia -Anemia secondary to chronic kidney disease -Acute kidney injury secondary to ATN secondary to hypotension and hemodynamic instability - slow to respond. -Chronic kidney disease stage III the baseline creatinine of 1.2-1.5 secondary to nephrosclerosis -Paroxysmal atrial fibrillation with rapid ventricular rate on amiodarone by mouth, Lopressor, converted to sinus rhythm -Hypernatremia secondary to decreased oral water intake. Receiving free water -Possible aspiration pneumonia, sputum positive for MSSA and Klebsiella pneumoniae. On IV Zosyn -Stage II sacral pressure ulcer, right heel decub -Hypothyroidism, continue Synthroid -Moderate to severe COPD, on bronchodilators, inhaled steroids -Diabetes mellitus type 2, follow Accu-Cheks -Essential hypertension -Hyperlipidemia, continue Lipitor -BPH on Flomax -Enteral tube feeding at 65 mL an hour -DO NOT RESUSCITATE Remains in ICU. Prognosis guarded. Has been off norepinephrine since last night. Change Protonix to by mouth
[2020-10-07] MEDS: ASPIRIN 81 MG PO SCH (18:57)
[2020-10-07] MEDS: FAMOTIDINE 20 MG TAB PO SCH (20:53)
[2020-10-07] MEDS: QUEtiapine 25 MG TAB PO SCH (20:53)
[2020-10-07] MEDS: ATORVASTATIN 40 MG TAB PEG/G-TUBE SCH (20:53)
[2020-10-07] MEDS ORDERED: FAMOTIDINE 20 MG TAB PO SCH (21:00)
[2020-10-07 23:54] LABS: Glucose,Whole Blood 147 mg/dL (75-99)
[2020-10-08] MEDS: MIDODRINE 5 MG TAB PO SCH ×5 (00:01→23:46)
[2020-10-08] MEDS: INSULIN ASPART (NovoLOG) 100 UNIT/ML VIAL SQ SCH ×6 (00:01→23:47)
[2020-10-08] MEDS: PIPERACILLIN-TAZOBACTAM 3.375 GM in SODIUM CHLORIDE 0.9% 100 ML IVPB SCH ×3 (00:01→23:47)
[2020-10-08 00:11] LABS: Glucose,Whole Blood 165 mg/dL (75-99)
[2020-10-08 04:51] LABS: Anisocytosis Slight; Basophils % (A) 1 %; Eosinophils # (A) 0.2 k/uL (0-0.7); Eosinophils % (A) 2 %; HCT 27.2 % (39.0-53.0); HGB 8.4 gm/dL (13.0-17.5); Hypochromasia Marked; Lymphocytes # (A) 0.6 k/uL (1.0-4.8); Lymphocytes % (A) 7 %; MCH 27.7 pg (25.0-35.0); MCV 89.3 fL (80.0-100.0); Mean Platelet Volume 7.4; Monocytes # (A) 0.5 k/uL (0-1.0); Monocytes % (A) 6 %; Neutrophils # (A) 6.6 k/uL (1.3-7.7); Neutrophils % (A) 84 %; Platelet Count 256 k/uL (150-450); Poikilocytosis Slight; RBC 3.04 m/uL (4.30-5.90); RDW 17.3 % (11.5-15.5); WBC 7.9 k/uL (3.8-10.6)
[2020-10-08 05:14] LABS: Calcium 8.9 mg/dL (8.4-10.2); Potassium 3.8 mmol/L (3.5-5.1)
[2020-10-08 06:06] LABS: Glucose,Whole Blood 171 mg/dL (75-99)
[2020-10-08 07:00] LABS: Glucose,Whole Blood 172 mg/dL (75-99)
[2020-10-08] MEDS: LEVOTHYROXINE 50 MCG TAB PEG/G-TUBE SCH (07:02)
--- NOTE | 2020-10-08 07:27 | XR ---
EXAMINATION TYPE: XR chest 1V portable DATE OF EXAM: 10/08/2020 HISTORY: Shortness of breath. COMPARISON: 10/07/2020 TECHNIQUE: Single view of the chest is submitted. FINDINGS: Demonstrated are scattered senescent parenchymal change. Basilar infiltrates and/or atelectasis with small effusions persist. No significant change appreciate d. Tracheostomy tube is in place. Right subclavian position of PICC line. The heart is stable. Hilar and mediastinal structures are within normal limits. Degenerative changes are seen of the dorsal spine. IMPRESSION: 1. Basilar infiltrates and/or atelectasis with small effusions persist. No significant change apprec iated.
--- NOTE | 2020-10-08 07:30 | P.PN ---
Subjective Progress Note Date: 10/08/20 Principal diagnosis: Paroxysmal atrial fibrillation This is a 80-year-old gentleman with coronary artery disease and status post coronary artery bypass grafting as well as chronic hypoxic respiratory failure as well as paroxysmal atrial fibrillation who was brought from the [facility] to the hospital because of increasing shortness of breath and possible underlying pneumonia likely to be aspiration pneumonia. The patient was seen today October [id number]. Overall clinically he is doing better. He is not on norepinephrine anymore. He has been maintaining normal sinus mechanism. Anticoagulation continues to be on hold because when he presented to the hospital he was anemic and received blood. He continues to diurese very well. He continues to put significant amount of output through the ileostomy tube. We will consider restarting the patient's back on oral anticoagulation was safe and bleeding has ruled out. The creatinine is a slightly better. Hemoglobin is stable Objective - Vital Signs Vital signs: Vital Signs Temp 97.8 F 10/08/20 04:00 Pulse 89 10/08/20 07:00 Resp 20 10/08/20 07:00 BP 110/67 10/08/20 07:00 Pulse Ox 97 10/08/20 07:00 Intake & Output 10/07/20 10/08/20 10/08/20 18:59 06:59 18:59 Intake Total 640 1335 Output Total 550 1110 Balance 90 225 Weight 76 kg Intake: IV 380 120 0.9NS 80 120 Magnesium Sulfate-D5w Pmx 100 1 gm In Dextrose/Water 1 100ml.bag @ 100 mls/hr IVPB Q1H [facility] Rx#: [id number] Piperacillin-Tazobactam 3 100 .375 gm In Sodium Chloride 0.9% 100 ml @ 25 mls/hr IVPB Q12H [facility] Rx# :[id number] Sodium Ferric Gluconat- 100 Sucrose 125 mg In Sodium Chloride 0.9% 100 ml @ 100 mls/hr IVPB DAILY [facility] Rx#:[id number] Tube Feeding 260 715 Other 500 Output: Urine 550 435 Stool 675 Other: Voiding Method Indwelling Catheter Indwelling Catheter - Constitutional General appearance: Present: no acute distress - Respiratory Respiratory: bilateral: diminished - Cardiovascular Rhythm: regular Heart sounds: normal: S1, S2 - Labs CBC & Chem 7: 10/08/20 04:15 10/08/20 04:15 Labs: Abnormal Lab Results - Last 24 Hours (Table) 10/07/20 10/07/20 10/07/20 Range/Units 12:20 18:00 23:53 RBC (4.30-5.90) m/uL Hgb (13.0-17.5) gm/dL Hct (39.0-53.0) % RDW (11.5-15.5) % Lymphocytes # (1.0-4.8) k/uL Chloride (98-107) mmol/L Carbon Dioxide (22-30) mmol/L BUN (9-20) mg/dL Creatinine (0.66-1.25) mg/dL Glucose (74-99) mg/dL POC Glucose (mg/dL) 150 H 150 H 147 H (75-99) mg/dL 10/08/20 10/08/20 10/08/20 Range/Units 00:09 04:15 04:15 RBC 3.04 L (4.30-5.90) m/uL Hgb 8.4 L (13.0-17.5) gm/dL Hct 27.2 L (39.0-53.0) % RDW 17.3 H (11.5-15.5) % Lymphocytes # 0.6 L (1.0-4.8) k/uL Chloride 109 H (98-107) mmol/L Carbon Dioxide 18 L (22-30) mmol/L BUN 75 H (9-20) mg/dL Creatinine 2.53 H (0.66-1.25) mg/dL Glucose 152 H (74-99) mg/dL POC Glucose (mg/dL) 165 H (75-99) mg/dL 10/08/20 10/08/20 Range/Units 06:05 06:58 RBC (4.30-5.90) m/uL Hgb (13.0-17.5) gm/dL Hct (39.0-53.0) % RDW (11.5-15.5) % Lymphocytes # (1.0-4.8) k/uL Chloride (98-107) mmol/L Carbon Dioxide (22-30) mmol/L BUN (9-20) mg/dL Creatinine (0.66-1.25) mg/dL Glucose (74-99) mg/dL POC Glucose (mg/dL) 171 H 172 H (75-99) mg/dL Microbiology - Last 24 Hours (Table) 10/02/20 09:51 Blood Culture - Preliminary Blood No Growth after 120 hours Assessment and Plan Assessment: Assessment #1 pneumonia/possible aspiration pneumonia/sepsis #2 paroxysmal atrial fibrillation #3 coronary artery disease and status post CABG #4 chronic hypoxic respiratory failure #5 status post ileostomy #6 multiple comorbid conditions Plan #1 continue the current dose of amiodarone #2 restart the patient back on oral anticoagulation was safe and bleeding has been ruled out #3 continue monitor the kidney function and electrolytes #4 follow-up with the patient
[2020-10-08] MEDS: FAMOTIDINE 20 MG/2 ML VIAL IV SCH (07:33)
[2020-10-08] MEDS: APIXABAN 5 MG TAB PEG/G-TUBE SCH (07:33)
--- NOTE | 2020-10-08 08:20 | P.PN ---
Subjective Progress Note Date: 10/08/20 Acute on chronic hypoxic respiratory failure secondary to left lower lobe pneum onia and sepsis. This is a 80-year-old white male familiar to my service, in July 2020, patient underwent elective coronary artery bypass grafting. He had a very complicated postoperative course, patient required multiple abdominal surgeries, multiple intubations, extubations, and the intubations, patient was a failure to wean, and he had multiple abdominal surgeries during his stay. Patient underwent tracheostomy, PEG tube placement, and we were able to transfer the patient to an extended care facility. He was at the extended care facility until about a week ago, his tracheostomy was capped, and he was transferred to [facility] in [place] [facility]. Patient has been noticing increased cough, increased shortness of breath, and significant purulent secretions from the tracheostomy tube when uncapped. O2 saturation was dipping down into the 50s and in the ER he had a saturation of 86% on 15 L high flow nasal cannula. Patient was also noted to have leukocytosis, hemoglobin was low, his troponin was slightly elevated, blood pressure was noted to be marginally low, patient was admitted initially to the cardiac floor, however supposedly he was noted to have blood pressure in the 70s systolic. Patient did receive multiple fluid boluses in the ER over 3 L were given, and we were notified about the patient on the floor having low blood pressure, I recommended transferred to the ICU planning to start the patient on norepinephrine. However over the last 12 hours in the ICU, his blood pressure has been stable patient did not require placement on any pressors. His beta blockers had been on hold because of low blood pressure, and he is maintained on amiodarone. His pro-calcitonin level was noted to be 2.60. And his chest x-ray showed left lower lobe atelectasis, suspect left lower lobe pneumonia. And he had small pleural effusions noted more so than right. Going back to his previous hospital admission, patient did have left lower lobe pneumonia and he did have left pleural effusion requiring thoracentesis once or twice. Cultures previously from the sputum were positive for Pseudomonas fluorescence/putida, sensitive to Zosyn and Levaquin and meropen em. Also sensitive to cefepime. Considering the patient's presentation with hypotension, shortness of breath, cough, abnormal chest x-ray, hypoxia, and considering his recent clinical history, we were asked to see him on consultation Patient was reevaluated today on 10/04/2020, patient remains in the ICU, he is on trach collar a 55%, patient went into atrial fibrillation with RVR yesterday, and he went on amiodarone at 1 mg/m, he also received 1 unit of packed RBCs for hemoglobin of 6.7, patient converted to sinus rhythm. Remains in sinus rhythm, patient is receiving tube feeds/Nepro at 65/65. He is also receiving free water. Chest x-ray is showing minimal improvement in the left lower lobe consolidation, clinically the patient is feeling better, he is empirically on antibiotics for healthcare acquired pneumonia/Zosyn. Previous sputum cultures were positive for Pseudomonas, hence his Zosyn was chosen as the drug of choice. CBC today showed WBC 7.2 hemoglobin 6.7, hence a unit of blood was given. Electrolytes showed low sodium but improving today is 148 from 150 to yesterday. BUN is 108 creatinine 3.4 to about the same as yesterday. Reevaluated today on 10/05/2020, patient remains in the ICU, remains on 55% trach collar. Off norepinephrine, IV fluids at KVO, tolerating enteral feeding via PEG tube, patient continues to have significant amount of tracheal secretions, he is now on Zosyn and vancomycin, as well as Zyvox. His cultures from the sputum are showing MSSA, hence we will discontinue vancomycin, keep him on Zosyn, and infectious disease to address his Zyvox. Patient may not even require Zyvox considering the culture is positive for MSSA. Chest x-ray is s howing bilateral pleural effusions/small, renal functioning is slightly improved over the last 24 hours. Patient was switched to oral amiodarone, and he seems to be doing quite well, in sinus rhythm. Reevaluated today on 10/06/2020, patient remains in the ICU, remains on trach collar at 28%, sputum came back positive for Klebsiella and MSSA. Patient is on Zosyn and Zyvox. Remains on a small dose of norepinephrine at 0.01 mcg/kg/m, remains on enteral feeding/Nepro at 65 ML per hour, also receiving Questran. Patient continues to have significant output from his ileostomy. Patient is feeling better overall compared to how he felt on presentation. CBC today is relatively normal WBC count is 7.1 hemoglobin is 8.7, electrolytes are normal BUN is 93 creatinine is 3.17, improving over the last couple of days. Blood cultures remain negative. Again his sputum cultures are positive for MSSA and Klebsiella pneumonia. Reevaluated today on 10/07/2020, patient remains in the ICU, remains on trach collar at 28%, receiving antibiotics for his Klebsiella and MSSA pneumonia. Patient is only on Zosyn, and his Zyvox was discontinued since it was initially started by infectious disease for possible MRSA. Patient is requiring intermittently small doses of norepinephrine, clinically however the patient is much better compared to how he felt when he came in. He is in no distress, this morning he is off norepinephrine, but he didn't require norepinephrine last night, hence I will not transfer the patient out of the ICU yet. Chest x-ray continues to show by basilar atelectasis, possible left lower lobe consolidation which is chronic. Secretions from the tracheostomy are less and less. Renal profile is improving, creatinine is down to 2.9. CBC is normal. Electrolytes are normal. On 10/08/2020 the patient is being seen in follow-up in the intensive unit. His, comfortable and currently is on a trach collar with an FiO2 of 28%. The chest x-ray shows small bilateral pleural effusions and there is adequate expansion of both lungs and a orotracheal tube is in a good location. Note that he had MSSA and Klebsiella in his sputum and patient is currently on IV antibiotics and he is receiving IV Zosyn. Patient continues to have copious amount of secretions through his tracheostomy tube and the patient has a #[address] trache[address] tube in place and he is requiring suctioning every 2 hours at least. He still has a lot of rhonchi He is currently off pressors. He is in normal sinus rhythm. He has also PEG tube for enteral feeding and nutritional support. PEG tube is in place and the patient is on Nepro at the rate of 75 mL an hour. He continues to have output through his ileostomy bag. The patient has significant amount of output through his ileostomy was in the order of every 12 hours. No abdominal distention. No signs of any respiratory distress. The creatinine is improving and is currently down to 2.5 and the patient's hemoglobin is at 8.4. No fever. No other issues overnight. Villafana cath is also in place. He is able to communicate. However he is still profoundly weak/in lower extremities. He is able to raise his arms against gravity. Objective - Vital Signs Vital signs: Vital Signs Temp 97.8 F 10/08/20 04:00 Pulse 89 10/08/20 07:00 Resp 20 10/08/20 07:00 BP 110/67 10/08/20 07:00 Pulse Ox 97 10/08/20 07:00 Intake & Output 10/07/20 10/08/20 10/08/20 18:59 06:59 18:59 Intake Total 640 1335 Output Total 550 1110 Balance 90 225 Weight 76 kg Intake: IV 380 120 0.9NS 80 120 Magnesium Sulfate-D5w Pmx 100 1 gm In Dextrose/Water 1 100ml.bag @ 100 mls/hr IVPB Q1H [facility] Rx#: [id number] Piperacillin-Tazobactam 3 100 .375 gm In Sodium Chloride 0.9% 100 ml @ 25 mls/hr IVPB Q12H [facility] Rx# :[id number] Sodium Ferric Gluconat- 100 Sucrose 125 mg In Sodium Chloride 0.9% 100 ml @ 100 mls/hr IVPB DAILY [facility] Rx#:[id number] Tube Feeding 260 715 Other 500 Output: Urine 550 435 Stool 675 Other: Voiding Method Indwelling Catheter Indwelling Catheter - Exam Physical Exam: Revealed 80-year-old white male pleasant, on trach collar, 28% FiO2. HEENT:[Neck is supple.] [No neck masses.] [No thyromegaly.] [No JVD.] Tracheostomy is intact. The patient has a #8 [address]iley tracheostomy tube in place Chest: Symmetrical chest expansion, crackles and rhonchi noted bilaterally especially at the left base Cardiac Exam: Cardiac exam revealed the PMI to be normally situated and sized. The rhythm was regular and no extrasystoles were noted during several minutes of auscultation. The first and second heart sounds were normal and physiologic splitting of the second heart sound was noted. There were no murmurs, rubs, clicks, or gallops. Thoracotomy scar is dry clean and intact. Abdomen: [Soft, nontender, no megaly, no rebound, no guarding, normal bowel sounds.] Surgical scar is noted in the mid abdomen, significant output is noted from his right ileostomy, patient has a fecal management system applied. Extremities: [No clubbing, 1+ bipedal edema, no cyanosis.] Neurological Exam: Alert and oriented 3. Significant motor weakness in all 4 extremity especially in the legs. Motor function upper extremities 4 out of 5 lower extremities around 2/5. He is able to communicate and answer questions appropriately. Psychiatric: Normal mood, affect and normal mental status examination. Skin: No rashes, surgical scar noted in the abdomen, some minimal drainage noted, clean dressing sedated - Labs CBC & Chem 7: 10/08/20 04:15 10/08/20 04:15 Labs: Abnormal Lab Results - Last 24 Hours (Table) 10/07/20 10/07/20 10/07/20 Range/Units 12:20 18:00 23:53 RBC (4.30-5.90) m/uL Hgb (13.0-17.5) gm/dL Hct (39.0-53.0) % RDW (11.5-15.5) % Lymphocytes # (1.0-4.8) k/uL Chloride (98-107) mmol/L Carbon Dioxide (22-30) mmol/L BUN (9-20) mg/dL Creatinine (0.66-1.25) mg/dL Glucose (74-99) mg/dL POC Glucose (mg/dL) 150 H 150 H 147 H (75-99) mg/dL 10/08/20 10/08/20 10/08/20 Range/Units 00:09 04:15 04:15 RBC 3.04 L (4.30-5.90) m/uL Hgb 8.4 L (13.0-17.5) gm/dL Hct 27.2 L (39.0-53.0) % RDW 17.3 H (11.5-15.5) % Lymphocytes # 0.6 L (1.0-4.8) k/uL Chloride 109 H (98-107) mmol/L Carbon Dioxide 18 L (22-30) mmol/L BUN 75 H (9-20) mg/dL Creatinine 2.53 H (0.66-1.25) mg/dL Glucose 152 H (74-99) mg/dL POC Glucose (mg/dL) 165 H (75-99) mg/dL 10/08/20 10/08/20 Range/Units 06:05 06:58 RBC (4.30-5.90) m/uL Hgb (13.0-17.5) gm/dL Hct (39.0-53.0) % RDW (11.5-15.5) % Lymphocytes # (1.0-4.8) k/uL Chloride (98-107) mmol/L Carbon Dioxide (22-30) mmol/L BUN (9-20) mg/dL Creatinine (0.66-1.25) mg/dL Glucose (74-99) mg/dL POC Glucose (mg/dL) 171 H 172 H (75-99) mg/dL Microbiology - Last 24 Hours (Table) 10/02/20 09:51 Blood Culture - Preliminary Blood No Growth after 120 hours Assessment and Plan Plan: 1 bilateral lower lobe pneumonia with sepsis and secondary hypertension and addition to hypovolemia. The patient was aggressively resuscitated IV fluids, antibiotics and pressors. Currently is off pressors. He is hemodynamically stable. Chest x-ray continues to improve. He still has significant amount of orotracheal secretion and the tracheostomy is required to be suctioned every 2 hours. The secretions are loose and liquidy for now. The chest x-ray shows improvement in the lower lobe pulmonary infiltrates and there are still some infiltration and small effusions bilaterally. He remains on IV Zosyn. 2 Acute on chronic hypoxic respiratory failure secondary to pneumonia and underlying COPD, currently on a 28% trach collar and the patient required tracheostomy following a prolonged intubation mechanical ventilation post c ardiac surgery. 3 bilateral lower lobe pneumonia, secondary to MSSA, and Klebsiella pneumonia (cultured in the sputum) 4 Sepsis secondary to pneumonia, currently off pressors 5 Acute on chronic kidney injury secondary to sepsis, , improving 6 Moderate-severe COPD. 7 History of triple-vessel coronary artery disease, bypass surgery on 07/18/2020 with multiple postoperative complications 8 History of tracheostomy mostly because of failure to wean. The patient has a #8 Shiley tracheostomy tube in place 9 Benign essential hypertension. 10 Type 2 diabetes. 11 Dyslipidemia. 12 Chronic atrial fibrillation, on amiodarone and on anticoagulation therapy 13 History of hypothyroidism. 14 History of ileostomy on 08/02/2020. 15 Chronic anemia 16 generalized motor weakness and debility seconds above-mentioned comorbidities Plan Continue IV fluids at KVO Continue present supportive care measures and the patient will be kept in ICU as the patient is requiring frequent suctioning of the tracheostomy tube, Continue Zosyn Continue GI and DVT prophylaxis. Continue bronchodilators. Continue amiodarone. Continue midodrine Continue fluids and may need boluses at times because of the significant output from the ileostomy. Levo fed has been discontinued We'll continue to follow. Not quite ready to be transferred out of the ICU.
[2020-10-08] MEDS: IPRATROPIUM-ALBUTEROL 3 ML NEB INHALATION SCH ×4 (08:44→20:18)
[2020-10-08] MEDS: BUDESONIDE 1 MG/2 ML NEBU INHALATION SCH ×2 (08:44→20:18)
[2020-10-08] MEDS: NOREPINEPHRINE 4 MG in SODIUM CHLORIDE 0.9% 250 ML IV SCH (08:58)
[2020-10-08] MEDS: CHOLESTYRAMINE (WITH SUGAR) 4 GM PACKET PO SCH ×2 (09:05→17:23)
[2020-10-08] MEDS: AMIODARONE 200 MG TAB PO SCH ×2 (09:05→20:40)
[2020-10-08] MEDS: TAMSULOSIN 0.4 MG CAP.ER.24H PO SCH (09:06)
[2020-10-08] MEDS: ASPIRIN 81 MG PO SCH (09:06)
[2020-10-08] MEDS: METOPROLOL TARTRATE 25 MG TAB PO SCH ×3 (09:06→20:41)
--- NOTE | 2020-10-08 10:30 | P.PN ---
Subjective Progress Note Date: 10/08/20 Principal diagnosis: Abdominal wound Patient awake and alert. White blood cell count normal. No pain. Tolerating tube feeds at goal. Objective - Vital Signs Vital signs: Vital Signs Temp 97.6 F 10/08/20 08:00 Pulse 73 10/08/20 10:00 Resp 22 10/08/20 10:00 BP 114/62 10/08/20 10:00 Pulse Ox 99 10/08/20 10:00 Intake & Output 10/07/20 10/08/20 10/08/20 18:59 06:59 18:59 Intake Total 640 1335 95 Output Total 550 1110 30 Balance 90 225 65 Weight 76 kg Intake: IV 380 120 30 0.9NS 80 120 30 Magnesium Sulfate-D5w Pmx 100 1 gm In Dextrose/Water 1 100ml.bag @ 100 mls/hr IVPB Q1H [facility] Rx#: [id number] Piperacillin-Tazobactam 3 100 .375 gm In Sodium Chloride 0.9% 100 ml @ 25 mls/hr IVPB Q12H [facility] Rx# :[id number] Sodium Ferric Gluconat- 100 Sucrose 125 mg In Sodium Chloride 0.9% 100 ml @ 100 mls/hr IVPB DAILY [facility] Rx#:[id number] Tube Feeding 260 715 65 Other 500 Output: Urine 550 435 30 Stool 675 Other: Voiding Method Indwelling Catheter Indwelling Catheter Indwelling Catheter - Exam Abdomen: Soft, nondistended, ostomy function, wound stable - Labs CBC & Chem 7: 10/08/20 04:15 10/08/20 04:15 Labs: Abnormal Lab Results - Last 24 Hours (Table) 10/07/20 10/07/20 10/07/20 Range/Units 12:20 18:00 23:53 RBC (4.30-5.90) m/uL Hgb (13.0-17.5) gm/dL Hct (39.0-53.0) % RDW (11.5-15.5) % Lymphocytes # (1.0-4.8) k/uL Chloride (98-107) mmol/L Carbon Dioxide (22-30) mmol/L BUN (9-20) mg/dL Creatinine (0.66-1.25) mg/dL Glucose (74-99) mg/dL POC Glucose (mg/dL) 150 H 150 H 147 H (75-99) mg/dL 10/08/20 10/08/20 10/08/20 Range/Units 00:09 04:15 04:15 RBC 3.04 L (4.30-5.90) m/uL Hgb 8.4 L (13.0-17.5) gm/dL Hct 27.2 L (39.0-53.0) % RDW 17.3 H (11.5-15.5) % Lymphocytes # 0.6 L (1.0-4.8) k/uL Chloride 109 H (98-107) mmol/L Carbon Dioxide 18 L (22-30) mmol/L BUN 75 H (9-20) mg/dL Creatinine 2.53 H (0.66-1.25) mg/dL Glucose 152 H (74-99) mg/dL POC Glucose (mg/dL) 165 H (75-99) mg/dL 10/08/20 10/08/20 Range/Units 06:05 06:58 RBC (4.30-5.90) m/uL Hgb (13.0-17.5) gm/dL Hct (39.0-53.0) % RDW (11.5-15.5) % Lymphocytes # (1.0-4.8) k/uL Chloride (98-107) mmol/L Carbon Dioxide (22-30) mmol/L BUN (9-20) mg/dL Creatinine (0.66-1.25) mg/dL Glucose (74-99) mg/dL POC Glucose (mg/dL) 171 H 172 H (75-99) mg/dL Microbiology - Last 24 Hours (Table) 10/02/20 09:51 Blood Culture - Preliminary Blood No Growth after 120 hours Assessment and Plan (1) Surgical wound dehiscence Narrative/Plan: Patient doing well at this time. Continue management of pulmonary secretions. Continue tube feeds at goal. Continue local wound care. Current Visit: Yes Status: Acute Code(s): T81.31XA - DISRUPTION OF EXTERNAL OPERATION (SURGICAL) WOUND, NEC, INIT SNOMED Code(s): 72056207
[2020-10-08 11:35] LABS: Glucose,Whole Blood 150 mg/dL (75-99)
[2020-10-08] MEDS: ACETAMINOPHEN TAB 325 MG TAB PO PRN ×2 (11:40→20:41)
--- NOTE | 2020-10-08 12:42 | PN ---
PROGRESS NOTE Patient is seen for followup for acute kidney injury. He is currently awake, comfortable. Denies any significant complaints. Renal function is stable and improving with creatinine down to 2.5 today. PHYSICAL EXAMINATION: Blood pressure was 114/62, heart rate 73 per minute, patient is afebrile. Examination of the heart S1, S2. Examination of lungs decreased breath sounds at the bases. Abdomen is soft. Examination of lower extremities shows edema 1+ bilaterally COSMETIC SURGEON exam grossly intact. LAB: Show sodium 138, potassium 3.8, chloride 109, CO2 is 18, BUN 75, creatinine 2.53, hemoglobin 8.4 g/dL. ASSESSMENT: 1. Acute kidney injury, acute tubular necrosis, secondary to sepsis and ischemic acute tubular necrosis, currently improving. 2. Chronic kidney disease stage 3, baseline creatinine 1.2-1.5. Etiology is nephrosclerosis. 3. Atrial fibrillation with rapid ventricular response, currently with controlled ventricular response. 4. Acute hypoxic respiratory failure currently with trach collar, etiology pneumonia. Sputum culture grew Staph aureus and Klebsiella pneumoniae. The patient is maintained on antibiotics. 5. History of ischemic bowel with pneumatosis status post bowel resection on 07/24/2020 with ileostomy for intraperitoneal hemorrhage status post explorative laparotomy, currently with wound infection, maintained on antibiotics. 6. Hypernatremia, improved sodium staying stable at about 138. PLAN: Repeat labs in a.m. Continue midodrine for hypotension. Continue free water administration and continue to avoid nephrotoxic agents. MMODL / IJN: [id number] /
--- NOTE | 2020-10-08 13:24 | P.PN ---
Progress Note - Text Progress Note Date: 10/08/20 Interval history: This is a pleasant 80 years old male with past medical history of coronary art fuad disease, COPD, diabetes mellitus, hyperlipidemia, hypertension, hypothyroidism, coronary artery disease status post cardiac cath and stent placement. He recently underwent double coronary artery bypass grafting for his triple-vessel coronary artery disease. He was in the hospital from 07/18/20- 08/25/2020 pt has tracheostomhy and PEG tube , Information were obtained with the help of at bedside, he presents with confusion, and a lot of secretion Why he states that after been discharged from acute and he went to [facility] aren't states therefore one month and 5 days and then he was discharged a few days ago to longterm at [facility] on Friday, however over the weekend he has more congestion, he has weak cough and needed frequent suctioning, patient was able to talk weekly his little confused but he can't communicate through gesture, he denies pain but he is tachypneic He has tracheostomy, PEG tube and try to colostomy. Admitted with-hypotension secondary to severe sepsis secondary to pneumonia, aspiration pneumonia, acute hypoxic respiratory failure, acute kidney injury secondary to ATN, elevated sodium, increased lactic acid, elevated troponin felt to be from tachycardia. Recent history of intraperitoneal hemorrhage status post laboratory with washout and ileostomy on 08/02/2020. Today-ICU: Awake, following commands. 2 feeding at 65 mL an hour. Having cook and white colored significant tracheostomy secretions. Ileostomy functioning. Review of systems: Attempted for constitutional, cardiovascular, GI, pulmonary. relevant finding as above Active Medications Acetaminophen (Acetaminophen Tab 325 Mg Tab) 650 mg PO Q6HR PRN PRN Reason: Mild Pain or Fever > 100.5 Last Admin: 10/08/20 11:40 Dose: 650 mg Documented by: Albuterol/Ipratropium (Ipratropium-Albuterol 3 Ml Neb) 3 ml INHALATION RT-QID WADE Last Admin: 10/08/20 12:11 Dose: 3 ml Documented by: Albuterol/Ipratropium (Ipratropium-Albuterol 3 Ml Neb) 3 ml INHALATION RT-Q2H PRN PRN Reason: Shortness Of Breath Or Wheezing Last Admin: 10/03/20 21:27 Dose: 3 ml Documented by: Amiodarone HCl (Amiodarone 200 Mg Tab) 400 mg PO BID [facility] Last Admin: 10/08/20 09:05 Dose: 400 mg Documented by: Aspirin (Aspirin 81 Mg) 81 mg PO DAILY [facility] Last Admin: 10/08/20 09:06 Dose: 81 mg Documented by: Atorvastatin Calcium (Atorvastatin 40 Mg Tab) 40 mg PEG/G-TUBE HS@2000 [facility] Last Admin: 10/07/20 20:53 Dose: 40 mg Documented by: Budesonide (Budesonide 1 Mg/2 Ml Nebu) 1 mg INHALATION RT-BID [facility] Last Admin: 10/08/20 08:44 Dose: 1 mg Documented by: Cholestyramine Resin (Cholestyramine (With Sugar) 4 Gm Packet) 4 gm PO BID@1000,1800 [facility] Last Admin: 10/08/20 09:05 Dose: 4 gm Documented by: Darbepoetin Alex (Darbepoetin Alex 40 Mcg/0.4 Ml Syringe) 40 mcg SQ Q7D [facility] Last Admin: 10/03/20 12:08 Dose: 40 mcg Documented by: Famotidine (Famotidine 20 Mg Tab) 20 mg PO HS [facility] Last Admin: 10/07/20 20:53 Dose: 20 mg Documented by: Piperacillin Sod/Tazobactam (Sod 3.375 gm/ Sodium Chloride) 100 mls @ 25 mls/hr IVPB Q12H [facility] Last Admin: 10/08/20 11:31 Dose: 25 mls/hr Documented by: Norepinephrine Bitartrate 4 mg (/ Sodium Chloride) 254 mls @ 14.383 mls/hr IV .[id number] [facility]; Protocol Last Admin: 10/08/20 08:58 Dose: Not Given Documented by: Insulin Aspart (Insulin Aspart (Novolog) 100 Unit/Ml Vial) 0 unit SQ Q6H [facility]; Protocol Last Admin: 10/08/20 11:40 Dose: 1 unit Documented by: Levothyroxine Sodium (Levothyroxine 50 Mcg Tab) 50 mcg PEG/G-TUBE DAILY@0600 [facility] Last Admin: 10/08/20 07:02 Dose: 50 mcg Documented by: Metoprolol Tartrate (Metoprolol Tartrate 25 Mg Tab) 25 mg PO TID [facility] Last Admin: 10/08/20 09:06 Dose: 25 mg Documented by: Midodrine (Midodrine 5 Mg Tab) 10 mg PO Q8HR [facility] Last Admin: 10/08/20 09:06 Dose: 10 mg Documented by: Naloxone HCl (Naloxone 0.4 Mg/Ml 1 Ml Vial) 0.2 mg IV Q2M PRN PRN Reason: Opioid Reversal Ondansetron HCl (Ondansetron 4 Mg/2 Ml Vial) 4 mg IVP Q8HR PRN PRN Reason: Nausea And Vomiting Quetiapine Fumarate (Quetiapine 25 Mg Tab) 25 mg PO HS [facility] Last Admin: 10/07/20 20:53 Dose: 25 mg Documented by: Tamsulosin HCl (Tamsulosin 0.4 Mg Cap.Er.24h) 0.4 mg PO PC-BRKFST [facility] Last Admin: 10/08/20 09:06 Dose: 0.4 mg Documented by: On examination: VITAL SIGNS: 98.1, 76, 14, 112/68, 98% on trach collar GENERAL APPEARANCE: Laying in bed, awake, tired HEENT: Normal external appearance of nose and ear. . Trach collar with shield EYES: Pupils equal. Conjunctiva normal. NECK: JVD not raised. Mass not palpable. RESPIRATORY: Respiratory effort increased Lungs decreased breath sounds and crackles. CARDIOVASCULAR: First and second sounds normal. No edema. ABDOMEN: Soft. Liver and spleen not palpable. Ileostomy with yellow stool liqui d. Dressing clean PSYCHIATRY: Alert and oriented x3. Mood and affect tired INVESTIGATIONS, reviewed in the clinical context: October 08: White count 7.9 hemoglobin 8.4 potassium 3.8 creatinine 2.53 October 07: White count 7 hemoglobin 8.2 platelets 271 potassium 3.6 creatinine 2.9 White count 7.1 hemoglobin 8.7 platelets 256 potassium 3.8 bicarbonate 20 bun 33 creatinine 3.17 Sputum culture-positive for Staphylococcus aureus MSSA, Klebsiella Pneumoniae Previous labs: White count 16.6 hemoglobin 9.9 platelets 584 bun 100 creatinine 3.18 Coronavirus PCR-not detected Renal ultrasound-normal bilateral renal ultrasound Assessment and plan: -Hypotensive shock -better. remains off norepinephrine IV , on midodrine- -Abdominal wound at surgical incision site, followed by general surgery with local dressing -History of ischemic small bowel with evidence of pneumatosis status post small bowel resection on 07/24/2020 -Ileostomy for intraperitoneal hemorrhage and small bowel ischemia status post exploratory laboratory or short of periportal cavity on 08/02/2020 -Coronary artery disease with bypass in July 2020, and Lopressor. Aspirin -Acute hypoxic respiratory failure secondary to pneumonia, continue with oxygen supplementation, currently with the trach collar -Sepsis secondary to pneumonia -Anemia secondary to chronic kidney disease -Acute kidney injury secondary to ATN secondary to hypotension and hemodynamic instability - slow to respond. Creatinine 2.53 -Chronic kidney disease stage III the baseline creatinine of 1.2-1.5 secondary to nephrosclerosis -Paroxysmal atrial fibrillation with rapid ventricular rate on amiodarone by mouth, Lopressor, converted to sinus rhythm -Hypernatremia secondary to decreased oral water intake. Receiving free water- improved -Possible aspiration pneumonia, sputum positive for MSSA and Klebsiella pneumoniae. On IV Zosyn -Stage II sacral pressure ulcer, right heel decub -Hypothyroidism, continue Synthroid -Moderate to severe COPD, on bronchodilators, inhaled steroids -Diabetes mellitus type 2, follow Accu-Cheks -Essential hypertension -Hyperlipidemia, continue Lipitor -BPH on Flomax -Enteral tube feeding at 65 mL an hour -DO NOT RESUSCITATE Remains in ICU. Prognosis guarded. Continue current medication treatment plan. Follow with [facility].
[2020-10-08 17:02] LABS: Glucose,Whole Blood 140 mg/dL (75-99)
--- NOTE | 2020-10-08 20:11 | PN ---
PROGRESS NOTE DATE OF SERVICE: 10/08/2020 REASON FOR FOLLOWUP: Pneumonia. INTERVAL HISTORY: The patient is currently afebrile. The patient is breathing comfortably. Denies having any chest pain. Some cough. No sputum. No abdominal pain and no worsening diarrhea has been reported. PHYSICAL EXAMINATION: Blood pressure 119/70 with a pulse of 71, temperature 97.1. He is 99% on trach collar. GENERAL DESCRIPTION is an elderly male lying in bed in no distress. RESPIRATORY SYSTEM: Unlabored breathing. Coarse breath sounds bilaterally. HEART S1, S2. Regular rate and rhythm. ABDOMEN: Soft. No tenderness. LAB: Hemoglobin 8.4, white count 7.9, BUN of 75, creatinine is 2.53. DIAGNOSTIC IMPRESSION AND PLAN: Patient with pneumonia. Sputum is positive for Klebsiella and MSSA. Patient is covered with Zosyn to continue. Hopefully transition to oral antibiotics on discharge. Continue supportive care. MMODL / IJN: [id number] /
[2020-10-08] MEDS: FAMOTIDINE 20 MG TAB PO SCH (20:41)
[2020-10-08] MEDS: ATORVASTATIN 40 MG TAB PEG/G-TUBE SCH (20:41)
[2020-10-08] MEDS: QUEtiapine 25 MG TAB PO SCH (21:04)
[2020-10-08] MEDS: MELATONIN 3 MG TABLET PO PRN (21:04)
[2020-10-08 23:40] LABS: Glucose,Whole Blood 145 mg/dL (75-99)
[2020-10-09 06:21] LABS: Glucose,Whole Blood 162 mg/dL (75-99)
[2020-10-09] MEDS: INSULIN ASPART (NovoLOG) 100 UNIT/ML VIAL SQ SCH ×4 (06:25→23:29)
[2020-10-09] MEDS: LEVOTHYROXINE 50 MCG TAB PEG/G-TUBE SCH (06:25)
[2020-10-09 06:58] LABS: Albumin 2.4 g/dL (3.5-5.0); Anisocytosis Slight; HCT 30.1 % (39.0-53.0); Hypochromasia Marked; MCH 28.2 pg (25.0-35.0); MCV 93.9 fL (80.0-100.0); Mean Platelet Volume 7.3; Platelet Count 257 k/uL (150-450); Poikilocytosis Slight; Potassium 3.7 mmol/L (3.5-5.1); RDW 17.5 % (11.5-15.5); Total Bilirubin 0.6 mg/dL (0.2-1.3); Total Protein 5.7 g/dL (6.3-8.2); WBC 8.5 k/uL (3.8-10.6)
[2020-10-09] MEDS: BUDESONIDE 1 MG/2 ML NEBU INHALATION SCH ×2 (07:25→20:43)
[2020-10-09] MEDS: IPRATROPIUM-ALBUTEROL 3 ML NEB INHALATION SCH ×4 (07:25→20:43)
[2020-10-09 07:44] LABS: Band Neutrophils % 1 %; Eosinophils # (M) 0.17 k/uL (0-0.7); Lymphocytes # (M) 0.51 k/uL (1.0-4.8); Metamyelocytes # (M) 0.26 k/uL (0); Metamyelocytes % 3 %; Monocytes # (M) 0.34 k/uL (0-1.0); Myelocytes # (M) 0.09 k/uL (0); Myelocytes % 1 %; Neutrophils % (M) 85 %; Nucleated Red Blood Cells 0 /100 WBC (0-0); Total Cells Counted 200
[2020-10-09 07:45] LABS: Polychromasia Present
[2020-10-09] MEDS: NOREPINEPHRINE 4 MG in SODIUM CHLORIDE 0.9% 250 ML IV SCH (10:21)
[2020-10-09] MEDS: MIDODRINE 5 MG TAB PO SCH ×3 (10:28→23:14)
[2020-10-09] MEDS: TAMSULOSIN 0.4 MG CAP.ER.24H PO SCH (10:28)
[2020-10-09] MEDS: AMIODARONE 200 MG TAB PO SCH ×2 (10:29→21:49)
[2020-10-09] MEDS: METOPROLOL TARTRATE 25 MG TAB PO SCH ×3 (10:29→21:49)
[2020-10-09] MEDS: CHOLESTYRAMINE (WITH SUGAR) 4 GM PACKET PO SCH ×2 (10:29→17:07)
[2020-10-09] MEDS: ASPIRIN 81 MG PO SCH (10:29)
[2020-10-09] MEDS: ONDANSETRON 4 MG/2 ML VIAL IVP PRN (10:40)
--- NOTE | 2020-10-09 10:44 | PN ---
PROGRESS NOTE Mr. Tinoco is a 80-year-old male with a known history of coronary artery disease status post coronary artery bypass grafting who had a complicated postoperative course with the combination of abdominal ischemia and bowel surgery, as well episodes of atrial fibrillation and prolonged respiratory failure requiring tracheostomy. He was readmitted to the hospital with symptoms of progressive dyspnea and was noted to have pneumonia. He is stable at this time. Hemodynamically, he is stable. He is awake, alert, and following verbal commands. He continues to have tracheostomy and PEG tube. He continues to be at this time on amiodarone 400 mg twice a day, aspirin once a day, Lipitor 40 mg daily, metoprolol tartrate 25 mg 3 times a day, midodrine. PHYSICAL EXAMINATION: VITAL SIGNS: Blood pressure 110/60 with a heart rate in the 70s. LUNGS: Clear anteriorly. HEART: Regular rate and rhythm S1, S2. No S3. No rub appreciated. ABDOMEN: Soft, PEG tube in place and dressing noted. EXTREMITIES: No edema. LAB DATA: Revealed a hemoglobin of 9, which is improved compared to yesterday. BUN and creatinine 68 and 2.18, improved compared to admission. Potassium 3.7. IMPRESSION: 1. Respiratory failure with evidence of pneumonia, improving. 2. Status post coronary artery bypass grafting. 3. Paroxysmal atrial fibrillation. 4. Renal failure. 5. Moderate to severe chronic obstructive pulmonary disease. 6. Prior history of hypertension. 7. Hyperlipidemia. 8. Paroxysmal atrial fibrillation. RECOMMENDATION: Patient's dose of amiodarone will be decreased. Will follow his hemoglobin and if stable we will re-initiate treatment with anticoagulation. We will follow his renal function. Increase his activity gradually and depending on his progress, further recommendations will be made. MMODL / IJN: [id number] /
--- NOTE | 2020-10-09 11:16 | P.PN ---
Subjective Progress Note Date: 10/09/20 Principal diagnosis: Acute on chronic hypoxic respiratory failure secondary to left lower lobe pneumonia and sepsis This is a 80-year-old white male familiar to my service, in July 2020, patient underwent elective coronary artery bypass grafting. He had a very complicated postoperative course, patient required multiple abdominal surgeries, multiple intubations, extubations, and the intubations, patient was a failure to wean, and he had multiple abdominal surgeries during his stay. Patient underwent tracheostomy, PEG tube placement, and we were able to transfer the pa maty to an extended care facility. He was at the extended care facility until about a week ago, his tracheostomy was capped, and he was transferred to [facility] in [facility]. Patient has been noticing increased cough, increased shortness of breath, and significant purulent secretions from the tracheostomy tube when uncapped. O2 saturation was dipping down into the 50s and in the ER he had a saturation of 86% on 15 L high flow nasal cannula. Patient was also noted to have leukocytosis, hemoglobin was low, his troponin was slightly elevated, blood pressure was noted to be marginally low, patient was admitted initially to the cardiac floor, however supposedly he was noted to have blood pressure in the 70s systolic. Patient did receive multiple fluid boluses in the ER over 3 L were given, and we were notified about the patient on the floor having low blood pressure, I recommended transferred to the ICU planning to start the patient on norepinephrine. However over the last 12 hours in the ICU, his blood pressure has been stable patient did not require placement on any pressors. His beta blockers had been on hold because of low blood pressure, and he is maintained on amiodarone. His pro-calcitonin level was noted to be 2.60. And his chest x-ray showed left lower lobe atelectasis, suspect left lower lobe pneumonia. And he had small pleural effusions noted more so than right. Going back to his previous hospital admission, patient did have left lower lobe pneumonia and he did have left pleural effusion requiring thoracentesis once or twice. Cultures previously from the sputum were positive for Pseudomonas fluorescence/putida, sensitive to Zosyn and Levaquin and meropenem. Also sensitive to cefepime. Considering the patient's presentation with hypotension, shortness of breath, cough, abnormal chest x-ray, hypoxia, and considering his recent clinical history, we were asked to see him on consultation Patient was reevaluated today on 10/04/2020, patient remains in the ICU, he is on trach collar a 55%, patient went into atrial fibrillation with RVR yesterday, and he went on amiodarone at 1 mg/m, he also received 1 unit of packed RBCs for hemoglobin of 6.7, patient converted to sinus rhythm. Remains in sinus rhythm, patient is receiving tube feeds/Nepro at 65/65. He is also receiving free water. Chest x-ray is showing minimal improvement in the left lower lobe consolidation, clinically the patient is feeling better, he is empirically on antibiotics for healthcare acquired pneumonia/Zosyn. Previous sputum cultures were positive for Pseudomonas, hence his Zosyn was chosen as the drug of choice. CBC today showed WBC 7.2 hemoglobin 6.7, hence a unit of blood was given. Electrolytes showed low sodium but improving today is 148 from 150 to yesterday. BUN is 108 creatinine 3.4 to about the same as yesterday. Reevaluated today on 10/05/2020, patient remains in the ICU, remains on 55% trach collar. Off norepinephrine, IV fluids at KVO, tolerating enteral feeding via PEG tube, patient continues to have significant amount of tracheal secretions, he is now on Zosyn and vancomycin, as well as Zyvox. His cultures from the sputum are showing MSSA, hence we will discontinue vancomycin, keep him on Zosyn, and infectious disease to address his Zyvox. Patient may not even require Zyvox considering the culture is positive for MSSA. Chest x-ray is showing bilateral pleural effusions/small, renal functioning is slightly improved over the last 24 hours. Patient was switched to oral amiodarone, and he seems to be doing quite well, in sinus rhythm. Reevaluated today on 10/06/2020, patient remains in the ICU, remains on trach collar at 28%, sputum came back positive for Klebsiella and MSSA. Patient is on Zosyn and Zyvox. Remains on a small dose of norepinephrine at 0.01 mcg/kg/m, remains on enteral feeding/Nepro at 65 ML per hour, also receiving Questran. Patient continues to have significant output from his ileostomy. Patient is feeling better overall compared to how he felt on presentation. CBC today is relatively normal WBC count is 7.1 hemoglobin is 8.7, electrolytes are normal BUN is 93 creatinine is 3.17, improving over the last couple of days. Blood cultures remain negative. Again his sputum cultures are positive for MSSA and Klebsiella pneumonia. Reevaluated today on 10/07/2020, patient remains in the ICU, remains on trach collar at 28%, receiving antibiotics for his Klebsiella and MSSA pneumonia. Patient is only on Zosyn, and his Zyvox was discontinued since it was initially started by infectious disease for possible MRSA. Patient is requiring intermittently small doses of norepinephrine, clinically however the patient is much better compared to how he felt when he came in. He is in no distress, this morning he is off norepinephrine, but he didn't require norepinephrine last night, hence I will not transfer the patient out of the ICU yet. Chest x-ray continues to show by basilar atelectasis, possible left lower lobe consolidation which is chronic. Secretions from the tracheostomy are less and less. Renal profile is improving, creatinine is down to 2.9. CBC is normal. Electrolytes are normal. On 10/08/2020 the patient is being seen in follow-up in the intensive unit. His , comfortable and currently is on a trach collar with an FiO2 of 28%. The chest x-ray shows small bilateral pleural effusions and there is adequate expansion of both lungs and a orotracheal tube is in a good location. Note that he had MSSA and Klebsiella in his sputum and patient is currently on IV antibiotics and he is receiving IV Zosyn. Patient continues to have copious amount of secretions through his tracheostomy tube and the patient has a #[address] tracheostomy tube in place and he is requiring suctioning every 2 hours at least. He still has a lot of rhonchi He is currently off pressors. He is in normal sinus rhythm. He has also PEG tube for enteral feeding and nutritional support. PEG tube is in place and the patient is on Nepro at the rate of 75 mL an hour. He continues to have output through his ileostomy bag. The patient has significant amount of output through his ileostomy was in the order of every 12 hours. No abdominal distention. No signs of any respiratory distress. The creatinine is improving and is currently down to 2.5 and the patient's hemoglobin is at 8.4. No fever. No other issues overnight. Villafana cath is also in place. He is able to communicate. However he is still profoundly weak/in lower extremities. He is able to raise his arms against gravity. On 10/09/2020 patient seen in follow-up in the intensive care unit. Patient is awake and alert, is following commands, moving all 4 extremities, no signs of any respiratory distress, he is breathing comfortably, on 28% trach collar. His pulse ox is 98%. Still having some secretions from his tracheostomy, related he is on Zosyn for antibiotic coverage. Remains on nebulized bronchodilators, hemodynamically patient has been stable. No requiring any vasopressor support for last 48 hours. No acute events overnight. His sputum cultures were positive for MSSA and Klebsiella pneumonia. Today's labs have been reviewed, normal white count at 8.5, hemoglobin is 9.0, sodium is 137, potassium is 3.7, chloride is 110, B1 is 67, creatinine is 2.18. Patient has been nothing by mouth and has been receiving nutrition in the form of Nepro at 65 with a goal of 65. Patient has had significant diarrhea, liquid yellow output from his ileostomy. No complaints of chest pain. He is in sinus mechanism with a controlled rate. Chest x-ray shows basilar infiltrates and atelectasis with small effusions. Objective - Vital Signs Vital signs: Vital Signs Temp 97.4 F L 10/09/20 08:00 Pulse 87 10/09/20 10:00 Resp 19 10/09/20 10:00 BP 126/63 10/09/20 10:00 Pulse Ox 98 10/09/20 10:00 Intake & Output 10/08/20 10/09/20 10/09/20 18:59 06:59 18:59 Intake Total 405 1615 465 Output Total 270 557 120 Balance 135 1058 345 Weight 74.1 kg Intake: IV 210 340 80 0.9 Normal Saline @ 20ml/ 210 240 80 hr Piperacillin-Tazobactam 3 100 .375 gm In Sodium Chloride 0.9% 100 ml @ 25 mls/hr IVPB Q12H [facility] Rx# :[id number] Tube Feeding 195 715 260 Other 560 125 Output: Urine 270 557 120 Other: Voiding Method Indwelling Catheter Indwelling Catheter - Exam GENERAL EXAM: Alert, very pleasant, 80-year-old white male on the 28% trach collar comfortable in no apparent distress. HEAD: Normocephalic/atraumatic. EYES: Normal reaction of pupils, equal size. Conjunctiva pink, sclera white. NOSE: Clear with pink turbinates. THROAT: No erythema or exudates. NECK: No masses, no JVD, no thyroid enlargement, no adenopathy. Midline tracheostomy in place, CHEST: No chest wall deformity. Symmetrical expansion. LUNGS: Equal air entry with no crackles, wheeze, rhonchi or dullness. CVS: Regular rate and rhythm, normal S1 and S2, no gallops, no murmurs, no rubs ABDOMEN: Soft, nontender. No hepatosplenomegaly, normal bowel sounds, no guarding or rigidity. Midabdominal incision covered with dressing, is healing by secondary intention, sutures are in place, bed is 100% granulated wound bed. Right upper quadrant ileostomy in place connected to a Villafana drainage bag patient is having liquid yellow stool output EXTREMITIES: No clubbing, no edema, no cyanosis, 2+ pulses and upper and lower extremities. MUSCULOSKELETAL: Muscle strength and tone normal. SPINE: No scoliosis or deformity SKIN: No rashes CENTRAL NERVOUS SYSTEM: Alert and oriented -3. No focal deficits, tone is nor mal in all 4 extremities. PSYCHIATRIC: Alert and oriented -3. Appropriate affect. Intact judgment and insight. - Labs CBC & Chem 7: 10/09/20 06:37 10/09/20 06:37 Labs: Abnormal Lab Results - Last 24 Hours (Table) 10/08/20 10/08/20 10/08/20 Range/Units 11:34 17:01 23:39 RBC (4.30-5.90) m/uL Hgb (13.0-17.5) gm/dL Hct (39.0-53.0) % MCHC (31.0-37.0) g/dL RDW (11.5-15.5) % Lymphocytes # (Manual) (1.0-4.8) k/uL Metamyelocytes # (Man) (0) k/uL Myelocytes # (Manual) (0) k/uL Chloride (98-107) mmol/L Carbon Dioxide (22-30) mmol/L BUN (9-20) mg/dL Creatinine (0.66-1.25) mg/dL Glucose (74-99) mg/dL POC Glucose (mg/dL) 150 H 140 H 145 H (75-99) mg/dL Alkaline Phosphatase (38-126) U/L Total Protein (6.3-8.2) g/dL Albumin (3.5-5.0) g/dL 10/09/20 10/09/20 10/09/20 Range/Units 06:19 06:37 06:37 RBC 3.20 L (4.30-5.90) m/uL Hgb 9.0 L (13.0-17.5) gm/dL Hct 30.1 L (39.0-53.0) % MCHC 30.0 L (31.0-37.0) g/dL RDW 17.5 H (11.5-15.5) % Lymphocytes # (Manual) 0.51 L (1.0-4.8) k/uL Metamyelocytes # (Man) 0.26 H (0) k/uL Myelocytes # (Manual) 0.09 H (0) k/uL Chloride 110 H (98-107) mmol/L Carbon Dioxide 17 L (22-30) mmol/L BUN 67 H (9-20) mg/dL Creatinine 2.18 H (0.66-1.25) mg/dL Glucose 155 H (74-99) mg/dL POC Glucose (mg/dL) 162 H (75-99) mg/dL Alkaline Phosphatase 138 H (38-126) U/L Total Protein 5.7 L (6.3-8.2) g/dL Albumin 2.4 L (3.5-5.0) g/dL Microbiology - Last 24 Hours (Table) 10/02/20 09:51 Blood Culture - Final Blood No Growth after 144 hours Assessment and Plan Plan: Assessment: 1 bilateral lower lobe pneumonia with sepsis and secondary hypertension and addition to hypovolemia. The patient was aggressively resuscitated IV fluids, antibiotics and pressors. Currently is off pressors. He is hemodynamically stable. Chest x-ray continues to improve. He still has significant amount of orotracheal secretion and the tracheostomy is required to be suctioned every 2 hours. The secretions are loose and liquidy for now. The chest x-ray shows improvement in the lower lobe pulmonary infiltrates and there are still some infiltration and small effusions bilaterally. He remains on IV Zosyn. 2 Acute on chronic hypoxic respiratory failure secondary to pneumonia and underlying COPD, currently on a 28% trach collar and the patient required tracheostomy following a prolonged intubation mechanical ventilation post cardiac surgery. 3 bilateral lower lobe pneumonia, secondary to MSSA, and Klebsiella pneumonia (cultured in the sputum) 4 Sepsis secondary to pneumonia, currently off pressors 5 Acute on chronic kidney injury secondary to sepsis, , improving 6 Moderate-severe COPD. 7 History of triple-vessel coronary artery disease, bypass surgery on 07/18/2020 with multiple postoperative complications 8 History of tracheostomy mostly because of failure to wean. The patient has a #8 Shiley tracheostomy tube in place 9 Benign essential hypertension. 10 Type 2 diabetes. 11 Dyslipidemia. 12 Chronic atrial fibrillation, on amiodarone and on anticoagulation therapy 13 History of hypothyroidism. 14 History of ileostomy on 08/02/2020. 15 Chronic anemia 16 generalized motor weakness and debility seconds above-mentioned comorbidities Plan: Continue current medical treatment, continue antibiotics per ID service recommendations, send stool for C. diff. Not any vasopressor support, hemodynamically stable, no fever or chills, tolerating trach collar, continues on Zosyn for antibiotics, continue GI and DVT prophylaxis. Currently in sinus mechanism, cardiology is following. Continue to onto the patient in the intensive care unit I performed a history & physical examination of the patient and discussed their management with my nurse practitioner, Cheli Kendrick. I reviewed the nurse practitioner's note and agree with the documented findings and plan of care. Lung sounds are positive for diminished breath sounds The findings and the impression was discussed with the patient. I attest to the documentation by the nurse practitioner. Time with Patient: Greater than 30
--- NOTE | 2020-10-09 11:20 | P.PN ---
Subjective Progress Note Date: 10/09/20 CHIEF COMPLAINT: Respiratory distress HISTORY OF PRESENT ILLNESS: Patient is being followed in regards to his abdominal wound at incision site. Patient remains in the ICU. He is awake. He reports some mild abdominal pain. Patient lying in bed comfortably. Patient's hypotension has improved over the weekend. He is no longer on any vasopressors. He is having a lot of output through his ileostomy. It appears yellowish in color almost the color of the tube feedings. Patient is afebrile. Trach c ollaring 97%. WBC 8.5 Hgb 9 creatinine 2.18 patient has PEG tube feedings for nutrition support. PHYSICAL EXAM: VITAL SIGNS: Reviewed. GENERAL: Well-developed in no acute distress. HEENT: No sclera icterus. Extraocular movements grossly intact. Moist buccal mucosa. Head is atraumatic, normocephalic. ABDOMEN: Soft. Nondistended. Nontender. Dressing clean dry and intact. Patient has a yellowish liquidy stool coming through the ileostomy. NEUROLOGIC: Alert and oriented. Cranial nerves II through XII grossly intact. ASSESSMENT: 1. Abdominal wound at surgical incision site. 2. History of ischemic small bowel with evidence of pneumatosis status post small bowel resection on 07/24/2020. 3. History of intraperitoneal hemorrhage and small bowel ischemia status post exploratory laparotomy, washout of peritoneal cavity and ileostomy with small bowel resection on 08/02/2020 4. History of CABG in July 2020 5. Acute hypoxic respiratory failure secondary to pneumonia 6. Sepsis secondary to pneumonia 7. Acute kidney injury 8. chronic Anemia: With known chronic kidney disease and iron deficiency. He did require blood transfusion during this admission PLAN: -Recommend ileostomy reversal when patient is medically stable -Continue wound care with Aquacel dressing -Continue supportive care -Continue ICU management -Continue antibiotics Physician Manager Financial note has been reviewed by physician. Signing provider agrees with the documented findings, assessment, and plan of care. Objective - Vital Signs Vital signs: Vital Signs Temp 97.4 F L 10/09/20 08:00 Pulse 96 10/09/20 11:10 Resp 13 10/09/20 11:10 BP 126/63 10/09/20 10:00 Pulse Ox 98 10/09/20 10:00 Intake & Output 10/08/20 10/09/20 10/09/20 18:59 06:59 18:59 Intake Total 405 1615 465 Output Total 270 557 120 Balance 135 1058 345 Weight 74.1 kg Intake: IV 210 340 80 0.9 Normal Saline @ 20ml/ 210 240 80 hr Piperacillin-Tazobactam 3 100 .375 gm In Sodium Chloride 0.9% 100 ml @ 25 mls/hr IVPB Q12H [facility] Rx# :[id number] Tube Feeding 195 715 260 Other 560 125 Output: Urine 270 557 120 Other: Voiding Method Indwelling Catheter Indwelling Catheter - Labs CBC & Chem 7: 10/09/20 06:37 10/09/20 06:37 Labs: Abnormal Lab Results - Last 24 Hours (Table) 10/08/20 10/08/20 10/08/20 Range/Units 11:34 17:01 23:39 RBC (4.30-5.90) m/uL Hgb (13.0-17.5) gm/dL Hct (39.0-53.0) % MCHC (31.0-37.0) g/dL RDW (11.5-15.5) % Lymphocytes # (Manual) (1.0-4.8) k/uL Metamyelocytes # (Man) (0) k/uL Myelocytes # (Manual) (0) k/uL Chloride (98-107) mmol/L Carbon Dioxide (22-30) mmol/L BUN (9-20) mg/dL Creatinine (0.66-1.25) mg/dL Glucose (74-99) mg/dL POC Glucose (mg/dL) 150 H 140 H 145 H (75-99) mg/dL Alkaline Phosphatase (38-126) U/L Total Protein (6.3-8.2) g/dL Albumin (3.5-5.0) g/dL 10/09/20 10/09/20 10/09/20 Range/Units 06:19 06:37 06:37 RBC 3.20 L (4.30-5.90) m/uL Hgb 9.0 L (13.0-17.5) gm/dL Hct 30.1 L (39.0-53.0) % MCHC 30.0 L (31.0-37.0) g/dL RDW 17.5 H (11.5-15.5) % Lymphocytes # (Manual) 0.51 L (1.0-4.8) k/uL Metamyelocytes # (Man) 0.26 H (0) k/uL Myelocytes # (Manual) 0.09 H (0) k/uL Chloride 110 H (98-107) mmol/L Carbon Dioxide 17 L (22-30) mmol/L BUN 67 H (9-20) mg/dL Creatinine 2.18 H (0.66-1.25) mg/dL Glucose 155 H (74-99) mg/dL POC Glucose (mg/dL) 162 H (75-99) mg/dL Alkaline Phosphatase 138 H (38-126) U/L Total Protein 5.7 L (6.3-8.2) g/dL Albumin 2.4 L (3.5-5.0) g/dL Microbiology - Last 24 Hours (Table) 10/02/20 09:51 Blood Culture - Final Blood No Growth after 144 hours
[2020-10-09 11:36] LABS: Glucose,Whole Blood 144 mg/dL (75-99)
[2020-10-09] MEDS: ACETAMINOPHEN TAB 325 MG TAB PO PRN ×2 (12:24→21:58)
[2020-10-09] MEDS: PIPERACILLIN-TAZOBACTAM 3.375 GM in SODIUM CHLORIDE 0.9% 100 ML IVPB SCH ×2 (12:25→21:04)
--- NOTE | 2020-10-09 14:18 | PN ---
PROGRESS NOTE Patient is seen for followup for acute kidney injury secondary to sepsis. Renal function continues to improve. Serum creatinine down to 2.1 from peak of 3.5 mg/dL. Urine output is maintained at about 30-40 mL an hour. Patient is maintained on tube feedings and free water down the feeding tube. He was on midodrine for hypotension. However, this will be held as blood pressure is currently on the higher side. PHYSICAL EXAMINATION: On examination today, blood pressure was 125/70, heart rate 92 per minute. Patient is afebrile. Examination of the heart S1, S2. Examination of the lungs, bilateral breath sounds are heard. Abdomen is soft, nontender. Incision is covered. Ileostomy is in place. Examination lower extremities shows no evidence of edema. [employer] exam grossly intact. LAB: Show hemoglobin 9.0, sodium 137, potassium 3.7, chloride 110, CO2 17, BUN 67, creatinine 2.18. ASSESSMENT: 1. Acute kidney injury, acute tubular necrosis currently nonoliguric with improving renal function. 2. Metabolic acidosis associated with renal failure and increased gastrointestinal fluid loss. We will start patient on oral sodium bicarb. 3. Anemia, currently maintained on Aranesp. 4. Chronic kidney disease, stage 3 baseline creatinine 1.2-1.5 mg/dL. 5. Abdominal wound infection, maintained on antibiotics. 6. History of ischemic bowel with pneumatosis status post bowel resection on 07/24/2020 with ileostomy. 7. Hypernatremia currently improved. PLAN: December DC midodrine. Continue free water down the feeding tube. Add oral sodium bicarb and repeat labs in a.m. MMODL / IJN: [id number] /
--- NOTE | 2020-10-09 18:09 | P.PN ---
Progress Note - Text Progress Note Date: 10/09/20 Interval history: This is a pleasant 80 years old male with past medical history of coronary art fuad disease, COPD, diabetes mellitus, hyperlipidemia, hypertension, hypothyroidism, coronary artery disease status post cardiac cath and stent placement. He recently underwent double coronary artery bypass grafting for his triple-vessel coronary artery disease. He was in the hospital from 07/18/20- 08/25/2020 pt has tracheostomhy and PEG tube , Information were obtained with the help of at bedside, he presents with confusion, and a lot of secretion Why he states that after been discharged from acute and he went to [facility] aren't states therefore one month and 5 days and then he was discharged a few days ago to halfway at [facility] on Friday, however over the weekend he has more congestion, he has weak cough and needed frequent suctioning, patient was able to talk weekly his little confused but he can't communicate through gesture, he denies pain but he is tachypneic He has tracheostomy, PEG tube and try to colostomy. Admitted with-hypotension secondary to severe sepsis secondary to pneumonia, aspiration pneumonia, acute hypoxic respiratory failure, acute kidney injury secondary to ATN, elevated sodium, increased lactic acid, elevated troponin felt to be from tachycardia. Recent history of intraperitoneal hemorrhage status post laboratory with washout and ileostomy on 08/02/2020. Tracheostomy Today-ICU: Awake, following commands. Tube feeding at 65 mL an hour. significant tracheostomy secretions. Ileostomy functioning with light-colored yellow stool. Review of systems: Patient unable to talk Active Medications Acetaminophen (Acetaminophen Tab 325 Mg Tab) 650 mg PO Q6HR PRN PRN Reason: Mild Pain or Fever > 100.5 Last Admin: 10/09/20 12:24 Dose: 650 mg Documented by: Albuterol/Ipratropium (Ipratropium-Albuterol 3 Ml Neb) 3 ml INHALATION RT-QID WADE Last Admin: 10/09/20 17:15 Dose: 3 ml Documented by: Albuterol/Ipratropium (Ipratropium-Albuterol 3 Ml Neb) 3 ml INHALATION RT-Q2H PRN PRN Reason: Shortness Of Breath Or Wheezing Last Admin: 10/03/20 21:27 Dose: 3 ml Documented by: Amiodarone HCl (Amiodarone 200 Mg Tab) 200 mg PO BID [facility] Last Admin: 10/09/20 10:29 Dose: 200 mg Documented by: Aspirin (Aspirin 81 Mg) 81 mg PO DAILY [facility] Last Admin: 10/09/20 10:29 Dose: 81 mg Documented by: Atorvastatin Calcium (Atorvastatin 40 Mg Tab) 40 mg PEG/G-TUBE HS@2000 [facility] Last Admin: 10/08/20 20:41 Dose: 40 mg Documented by: Budesonide (Budesonide 1 Mg/2 Ml Nebu) 1 mg INHALATION RT-BID [facility] Last Admin: 10/09/20 07:25 Dose: 1 mg Documented by: Cholestyramine Resin (Cholestyramine (With Sugar) 4 Gm Packet) 4 gm PO BID@1000,1800 [facility] Last Admin: 10/09/20 17:07 Dose: 4 gm Documented by: Darbepoetin Alex (Darbepoetin Alex 40 Mcg/0.4 Ml Syringe) 40 mcg SQ Q7D [facility] Last Admin: 10/03/20 12:08 Dose: 40 mcg Documented by: Famotidine (Famotidine 20 Mg Tab) 20 mg PO HS [facility] Last Admin: 10/08/20 20:41 Dose: 20 mg Documented by: Piperacillin Sod/Tazobactam (Sod 3.375 gm/ Sodium Chloride) 100 mls @ 25 mls/hr IVPB Q8H [facility] Insulin Aspart (Insulin Aspart (Novolog) 100 Unit/Ml Vial) 0 unit SQ Q6H [facility]; Protocol Last Admin: 10/09/20 12:24 Dose: 1 unit Documented by: Levothyroxine Sodium (Levothyroxine 50 Mcg Tab) 50 mcg PEG/G-TUBE DAILY@0600 [facility] Last Admin: 10/09/20 06:25 Dose: 50 mcg Documented by: Melatonin (Melatonin 3 Mg Tablet) 3 mg PO HS PRN PRN Reason: Insomnia Last Admin: 10/08/20 21:04 Dose: 3 mg Documented by: Metoprolol Tartrate (Metoprolol Tartrate 25 Mg Tab) 25 mg PO TID [facility] Last Admin: 10/09/20 16:49 Dose: 25 mg Documented by: Midodrine (Midodrine 5 Mg Tab) 10 mg PO Q8HR [facility] Last Admin: 10/09/20 16:49 Dose: 10 mg Documented by: Naloxone HCl (Naloxone 0.4 Mg/Ml 1 Ml Vial) 0.2 mg IV Q2M PRN PRN Reason: Opioid Reversal Ondansetron HCl (Ondansetron 4 Mg/2 Ml Vial) 4 mg IVP Q8HR PRN PRN Reason: Nausea And Vomiting Last Admin: 10/09/20 10:40 Dose: 4 mg Documented by: Quetiapine Fumarate (Quetiapine 25 Mg Tab) 25 mg PO HS [facility] Last Admin: 10/08/20 21:04 Dose: 25 mg Documented by: Sodium Bicarbonate (Sodium Bicarbonate Tab 650 Mg Tab) 650 mg PO BID [facility] Tamsulosin HCl (Tamsulosin 0.4 Mg Cap.Er.24h) 0.4 mg PO PC-BRKFST [facility] Last Admin: 10/09/20 10:28 Dose: 0.4 mg Documented by: On examination: VITAL SIGNS: 97.6, 77, 22, 104/51, 99% on trach collar GENERAL APPEARANCE: Laying in bed, awake, tired HEENT: Normal external appearance of nose and ear. . Trach collar with shield EYES: Pupils equal. Conjunctiva normal. NECK: JVD not raised. Mass not palpable. RESPIRATORY: Respiratory effort increased Lungs decreased breath sounds and crackles. CARDIOVASCULAR: First and second sounds normal. No edema. ABDOMEN: Soft. Liver and spleen not palpable. Ileostomy with yellow stool liquid. PSYCHIATRY: Alert and oriented x3. Mood and affect tired INVESTIGATIONS, reviewed in the clinical context: October 09: WBC 8.5 hemoglobin 9. She is 257 potassium 3.7 bun 67 creatinine 2.18 October 08: White count 7.9 hemoglobin 8.4 potassium 3.8 creatinine 2.53 October 07: White count 7 hemoglobin 8.2 platelets 271 potassium 3.6 creatinine 2.9 White count 7.1 hemoglobin 8.7 platelets 256 potassium 3.8 bicarbonate 20 bun 33 creatinine 3.17 Sputum culture-positive for Staphylococcus aureus MSSA, Klebsiella Pneumoniae Previous labs: White count 16.6 hemoglobin 9.9 platelets 584 bun 100 creatinine 3.18 Coronavirus PCR-not detected Renal ultrasound-normal bilateral renal ultrasound Assessment and plan: -Hypotensive shock -better. remains off norepinephrine IV , on midodrine- -Abdominal wound at surgical incision site, followed by general surgery with local dressing -History of ischemic small bowel with evidence of pneumatosis status post small bowel resection on 07/24/2020 -Ileostomy for intraperitoneal hemorrhage and small bowel ischemia status post exploratory laboratory or short of periportal cavity on 08/02/2020 -Coronary artery disease with bypass in July 2020, and Lopressor. Aspirin -Acute hypoxic respiratory failure secondary to pneumonia, continue with oxygen supplementation, currently with the trach collar, 128% -Anemia secondary to chronic kidney disease , follow H&H -Acute kidney injury secondary to ATN secondary to hypotension and hemodynamic instability - slow to respond. Creatinine 2.18 -Chronic kidney disease stage III the baseline creatinine of 1.2-1.5 secondary to nephrosclerosis -Paroxysmal atrial fibrillation with rapid ventricular rate on amiodarone by mouth, Lopressor, converted to sinus rhythm -Hypernatremia secondary to decreased oral water intake. Receiving free water- improved -Possible aspiration pneumonia, sputum positive for MSSA and Klebsiella pneumoniae., Causing sepsis On IV Zosyn -Stage II sacral pressure ulcer, right heel decub -Hypothyroidism, continue Synthroid -Moderate to severe COPD, on bronchodilators, inhaled steroids -Diabetes mellitus type 2, follow Accu-Cheks -Essential hypertension -Hyperlipidemia, continue Lipitor -BPH on Flomax -Enteral tube feeding at 65 mL an hour -DO NOT RESUSCITATE Remains in ICU. Prognosis guarded. Continue current medication treatment plan. 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
--- NOTE | 2020-10-09 18:25 | PN ---
PROGRESS NOTE DATE OF SERVICE: 10/09/2020 REASON FOR FOLLOWUP: Pneumonia. INTERVAL HISTORY: The patient is currently afebrile. The patient is breathing comfortably on trach collar. Denies having any chest pain. Occasional cough. No abdominal pain or diarrhea. PHYSICAL EXAMINATION: Blood pressure 107/54, pulse of 80, temperature 97.6. He is 98% on trach collar. General description is an elderly male lying in bed in no distress. RESPIRATORY SYSTEM: Unlabored breathing with decreased breath sounds at the base. No wheeze. HEART: S1, S2. Regular rate and rhythm. ABDOMEN: Soft. No tenderness. LABS: Hemoglobin is 9, white count 8.5, BUN of 67, creatinine is 2.18. DIAGNOSTIC IMPRESSION AND PLAN: Patient admitted to hospital with pneumonia. Sputum has been Klebsiella and MSSA. The patient is covered with Zosyn; to continue, finishing therapy with oral antibiotic on discharge. Continue with supportive care. MMODL / IJN: [id number] /
[2020-10-09 18:32] LABS: Glucose,Whole Blood 129 mg/dL (75-99)
[2020-10-09] MEDS ORDERED: Potassium Replacement Protocol 1 EACH MISC MISCELLANE PRN (18:33)
[2020-10-09] MEDS ORDERED: POTASSIUM BICARBONATE/CIT AC 20 MEQ TABLET.EFF NG-TUBE SCH (20:00)
[2020-10-09] MEDS: ATORVASTATIN 40 MG TAB PEG/G-TUBE SCH (21:49)
[2020-10-09] MEDS: QUEtiapine 25 MG TAB PO SCH (21:49)
[2020-10-09] MEDS: SODIUM BICARBONATE TAB 650 MG TAB PO SCH (21:49)
[2020-10-09] MEDS: FAMOTIDINE 20 MG TAB PO SCH (21:49)
[2020-10-09] MEDS: MELATONIN 3 MG TABLET PO PRN (21:49)
[2020-10-09 23:22] LABS: Glucose,Whole Blood 161 mg/dL (75-99)
[2020-10-10] MEDS: PIPERACILLIN-TAZOBACTAM 3.375 GM in SODIUM CHLORIDE 0.9% 100 ML IVPB SCH ×3 (04:09→19:47)
[2020-10-10] MEDS: LEVOTHYROXINE 50 MCG TAB PEG/G-TUBE SCH ×2 (04:09→05:53)
[2020-10-10 04:28] LABS: Anisocytosis Slight; Basophils # (A) 0.1 k/uL (0-0.2); Basophils % (A) 1 %; Eosinophils # (A) 0.2 k/uL (0-0.7); Eosinophils % (A) 2 %; HCT 28.7 % (39.0-53.0); HGB 8.9 gm/dL (13.0-17.5); Hypochromasia Marked; Lymphocytes # (A) 0.8 k/uL (1.0-4.8); Lymphocytes % (A) 9 %; MCH 28.1 pg (25.0-35.0); MCHC 31.1 g/dL (31.0-37.0); MCV 90.6 fL (80.0-100.0); Mean Platelet Volume 7.3; Monocytes # (A) 0.5 k/uL (0-1.0); Monocytes % (A) 6 %; Neutrophils # (A) 7.2 k/uL (1.3-7.7); Neutrophils % (A) 82 %; Platelet Count 260 k/uL (150-450); Poikilocytosis Slight; RBC 3.17 m/uL (4.30-5.90); RDW 17.8 % (11.5-15.5); WBC 8.9 k/uL (3.8-10.6)
[2020-10-10 04:42] LABS: Calcium 9.2 mg/dL (8.4-10.2); Potassium 3.9 mmol/L (3.5-5.1)
[2020-10-10] MEDS ORDERED: POTASSIUM BICARBONATE/CIT AC 20 MEQ TABLET.EFF NG-TUBE SCH (06:00)
[2020-10-10 06:14] LABS: Glucose,Whole Blood 147 mg/dL (75-99)
[2020-10-10] MEDS: INSULIN ASPART (NovoLOG) 100 UNIT/ML VIAL SQ SCH ×3 (06:14→18:40)
--- NOTE | 2020-10-10 08:41 | PN ---
PROGRESS NOTE Mr. Tinoco is a 80-year-old male who has a known history of coronary artery disease, status post coronary artery bypass grafting that was complicated by atrial fibrillation as well as bowel ischemia requiring surgical intervention. He has a PEG tube and trach. He is awake, alert, following commands. He has some secretion, but otherwise feeling better. He is in sinus mechanism. Hemodynamically, he is stable. He denies any chest pain or dizziness. He denies any palpitation. He presented with evidence of pneumonia and respiratory failure. He is on no vasopressor. He continues to be at this time on amiodarone 200 mg twice a day, aspirin once a day, Lipitor 40 mg daily, metoprolol 25 mg 3 times a day, midodrine 10 mg q.8 hours. PHYSICAL EXAMINATION: Blood pressure 110/70 with the heart rate in the 80s. LUNGS: No wheezes or rales. HEART: Regular rate and rhythm. S1, S2. No S3 with a systolic murmur. No diastolic murmur. ABDOMEN: Soft, nontender. PEG tube noted. EXTREMITIES: No edema. LAB DATA: Lab data revealed a hemoglobin of 8.9. BUN and creatinine 63 and 1.94, which is improving compared to his admission numbers. Potassium 3.9. IMPRESSION: 1. Respiratory failure with pneumonia, improving. 2. Status post coronary artery bypass grafting. 3. Paroxysmal atrial fibrillation, not anticoagulated because of severe anemia on presentation. 4. Acute renal injury, improving. 5. Hypertension. 6. Diabetes. 7. Hyperlipidemia. 8. Status post ileostomy. 9. Chronic anemia. RECOMMENDATION: We will continue current therapy. Continue to follow his renal function and his hemoglobin and consider re-initiating anticoagulation if his hemoglobin remains stable. MMODL / IJN: [id number] /
[2020-10-10] MEDS: IPRATROPIUM-ALBUTEROL 3 ML NEB INHALATION SCH ×4 (08:59→19:22)
[2020-10-10] MEDS: BUDESONIDE 1 MG/2 ML NEBU INHALATION SCH ×2 (08:59→19:22)
[2020-10-10] MEDS: LACTATED RINGERS 1,000 ML IV SCH ×2 (09:45→19:47)
[2020-10-10] MEDS: MIDODRINE 5 MG TAB PO SCH ×2 (09:46→17:22)
[2020-10-10] MEDS: AMIODARONE 200 MG TAB PO SCH ×2 (09:46→19:46)
[2020-10-10] MEDS: ASPIRIN 81 MG PO SCH (09:46)
[2020-10-10] MEDS: METOPROLOL TARTRATE 25 MG TAB PO SCH ×3 (09:47→19:46)
[2020-10-10] MEDS: CHOLESTYRAMINE (WITH SUGAR) 4 GM PACKET PO SCH ×2 (09:47→17:23)
[2020-10-10] MEDS: SODIUM BICARBONATE TAB 650 MG TAB PO SCH ×2 (09:47→19:46)
[2020-10-10] MEDS: TAMSULOSIN 0.4 MG CAP.ER.24H PO SCH (09:47)
[2020-10-10] MEDS: ACETAMINOPHEN TAB 325 MG TAB PO PRN ×2 (09:48→17:23)
--- NOTE | 2020-10-10 10:30 | P.PN ---
Subjective Progress Note Date: 10/10/20 Principal diagnosis: Acute on chronic hypoxic respiratory failure secondary to left lower lobe pneumonia and sepsis This is a 80-year-old white male familiar to my service, in July 2020, patient underwent elective coronary artery bypass grafting. He had a very complicated postoperative course, patient required multiple abdominal surgeries, multiple intubations, extubations, and the intubations, patient was a failure to wean, and he had multiple abdominal surgeries during his stay. Patient underwent tracheostomy, PEG tube placement, and we were able to transfer the pa maty to an extended care facility. He was at the extended care facility until about a week ago, his tracheostomy was capped, and he was transferred to [facility] in [facility]. Patient has been noticing increased cough, increased shortness of breath, and significant purulent secretions from the tracheostomy tube when uncapped. O2 saturation was dipping down into the 50s and in the ER he had a saturation of 86% on 15 L high flow nasal cannula. Patient was also noted to have leukocytosis, hemoglobin was low, his troponin was slightly elevated, blood pressure was noted to be marginally low, patient was admitted initially to the cardiac floor, however supposedly he was noted to have blood pressure in the 70s systolic. Patient did receive multiple fluid boluses in the ER over 3 L were given, and we were notified about the patient on the floor having low blood pressure, I recommended transferred to the ICU planning to start the patient on norepinephrine. However over the last 12 hours in the ICU, his blood pressure has been stable patient did not require placement on any pressors. His beta blockers had been on hold because of low blood pressure, and he is maintained on amiodarone. His pro-calcitonin level was noted to be 2.60. And his chest x-ray showed left lower lobe atelectasis, suspect left lower lobe pneumonia. And he had small pleural effusions noted more so than right. Going back to his previous hospital admission, patient did have left lower lobe pneumonia and he did have left pleural effusion requiring thoracentesis once or twice. Cultures previously from the sputum were positive for Pseudomonas fluorescence/putida, sensitive to Zosyn and Levaquin and meropenem. Also sensitive to cefepime. Considering the patient's presentation with hypotension, shortness of breath, cough, abnormal chest x-ray, hypoxia, and considering his recent clinical history, we were asked to see him on consultation Patient was reevaluated today on 10/04/2020, patient remains in the ICU, he is on trach collar a 55%, patient went into atrial fibrillation with RVR yesterday, and he went on amiodarone at 1 mg/m, he also received 1 unit of packed RBCs for hemoglobin of 6.7, patient converted to sinus rhythm. Remains in sinus rhythm, patient is receiving tube feeds/Nepro at 65/65. He is also receiving free water. Chest x-ray is showing minimal improvement in the left lower lobe consolidation, clinically the patient is feeling better, he is empirically on antibiotics for healthcare acquired pneumonia/Zosyn. Previous sputum cultures were positive for Pseudomonas, hence his Zosyn was chosen as the drug of choice. CBC today showed WBC 7.2 hemoglobin 6.7, hence a unit of blood was given. Electrolytes showed low sodium but improving today is 148 from 150 to yesterday. BUN is 108 creatinine 3.4 to about the same as yesterday. Reevaluated today on 10/05/2020, patient remains in the ICU, remains on 55% trach collar. Off norepinephrine, IV fluids at KVO, tolerating enteral feeding via PEG tube, patient continues to have significant amount of tracheal secretions, he is now on Zosyn and vancomycin, as well as Zyvox. His cultures from the sputum are showing MSSA, hence we will discontinue vancomycin, keep him on Zosyn, and infectious disease to address his Zyvox. Patient may not even require Zyvox considering the culture is positive for MSSA. Chest x-ray is showing bilateral pleural effusions/small, renal functioning is slightly improved over the last 24 hours. Patient was switched to oral amiodarone, and he seems to be doing quite well, in sinus rhythm. Reevaluated today on 10/06/2020, patient remains in the ICU, remains on trach collar at 28%, sputum came back positive for Klebsiella and MSSA. Patient is on Zosyn and Zyvox. Remains on a small dose of norepinephrine at 0.01 mcg/kg/m, remains on enteral feeding/Nepro at 65 ML per hour, also receiving Questran. Patient continues to have significant output from his ileostomy. Patient is feeling better overall compared to how he felt on presentation. CBC today is relatively normal WBC count is 7.1 hemoglobin is 8.7, electrolytes are normal BUN is 93 creatinine is 3.17, improving over the last couple of days. Blood cultures remain negative. Again his sputum cultures are positive for MSSA and Klebsiella pneumonia. Reevaluated today on 10/07/2020, patient remains in the ICU, remains on trach collar at 28%, receiving antibiotics for his Klebsiella and MSSA pneumonia. Patient is only on Zosyn, and his Zyvox was discontinued since it was initially started by infectious disease for possible MRSA. Patient is requiring intermittently small doses of norepinephrine, clinically however the patient is much better compared to how he felt when he came in. He is in no distress, this morning he is off norepinephrine, but he didn't require norepinephrine last night, hence I will not transfer the patient out of the ICU yet. Chest x-ray continues to show by basilar atelectasis, possible left lower lobe consolidation which is chronic. Secretions from the tracheostomy are less and less. Renal profile is improving, creatinine is down to 2.9. CBC is normal. Electrolytes are normal. On 10/08/2020 the patient is being seen in follow-up in the intensive unit. His , comfortable and currently is on a trach collar with an FiO2 of 28%. The chest x-ray shows small bilateral pleural effusions and there is adequate expansion of both lungs and a orotracheal tube is in a good location. Note that he had MSSA and Klebsiella in his sputum and patient is currently on IV antibiotics and he is receiving IV Zosyn. Patient continues to have copious amount of secretions through his tracheostomy tube and the patient has a #[address] tracheostomy tube in place and he is requiring suctioning every 2 hours at least. He still has a lot of rhonchi He is currently off pressors. He is in normal sinus rhythm. He has also PEG tube for enteral feeding and nutritional support. PEG tube is in place and the patient is on Nepro at the rate of 75 mL an hour. He continues to have output through his ileostomy bag. The patient has significant amount of output through his ileostomy was in the order of every 12 hours. No abdominal distention. No signs of any respiratory distress. The creatinine is improving and is currently down to 2.5 and the patient's hemoglobin is at 8.4. No fever. No other issues overnight. Villafana cath is also in place. He is able to communicate. However he is still profoundly weak/in lower extremities. He is able to raise his arms against gravity. On 10/09/2020 patient seen in follow-up in the intensive care unit. Patient is awake and alert, is following commands, moving all 4 extremities, no signs of any respiratory distress, he is breathing comfortably, on 28% trach collar. His pulse ox is 98%. Still having some secretions from his tracheostomy, related he is on Zosyn for antibiotic coverage. Remains on nebulized bronchodilators, hemodynamically patient has been stable. No requiring any vasopressor support for last 48 hours. No acute events overnight. His sputum cultures were positive for MSSA and Klebsiella pneumonia. Today's labs have been reviewed, normal white count at 8.5, hemoglobin is 9.0, sodium is 137, potassium is 3.7, chloride is 110, B1 is 67, creatinine is 2.18. Patient has been nothing by mouth and has been receiving nutrition in the form of Nepro at 65 with a goal of 65. Patient has had significant diarrhea, liquid yellow output from his ileostomy. No complaints of chest pain. He is in sinus mechanism with a controlled rate. Chest x-ray shows basilar infiltrates and atelectasis with small effusions. On 10/10/2020 patient seen in follow-up in the intensive care unit. He is awake and alert, oriented 3, his calm and cooperative, he denies any acute distress, he still has significant amount of secretions that are being suctioned from the tracheostomy tube, he remains on 20% trach collar. He remains on antibiotics, his sputum cultures were positive for MSSA and Klebsiella pneumonia, he is on Zosyn, he has had no fever or chills. Lung sounds reveal minimal rhonchi, less congested and wheezy on today's exam compared a few days ago. Patient is tolerating tube feedings, he remains strict nothing by mouth, he is on Nepro at a rate of 65 ML per hour with a goal of 65 with 125 ML free water flushes every 3 hours. Abdomen is soft, ileostomy is still producing copious amount of liquid yellow diarrhea, which will be sent for C. diff. There has been a total of 2.5 L in stool output in the last 24 hours. Today's labs have been reviewed, white blood cell count is 8.9, hemoglobin is 8.9, CO2 is 18, sodium is 138, potassium is 3.9, chloride is 110, renal profile is improving despite the diarrhea, with BUN of 63, creatinine is 1.94. Patient is working with physical therapy and yesterday he apparently was up in the chair with assistance, tolerated activity well. Objective - Vital Signs Vital signs: Vital Signs Temp 95.8 F L 10/10/20 08:00 Pulse 82 10/10/20 10:00 Resp 20 10/10/20 10:00 BP 120/67 10/10/20 10:00 Pulse Ox 99 10/10/20 10:00 Intake & Output 10/09/20 10/10/20 10/10/20 18:59 06:59 18:59 Intake Total 1520 1490 485 Output Total 2765 370 1350 Balance -1245 1120 -865 Weight 72.7 kg Intake: IV 240 110 105 0.9 Normal Saline @ 20ml/ 240 110 30 hr Lactated Ringers 1,000 ml 75 @ 75 mls/hr IV .[id number] WADE Rx#:[id number] Intake, IV Titration 100 Amount Piperacillin-Tazobactam 3 100 .375 gm In Sodium Chloride 0.9% 100 ml @ 25 mls/hr IVPB Q8H WADE Rx#: [id number] Tube Feeding 780 780 260 Other 500 500 120 Output: Urine 215 370 150 Straight 300 Stool 2550 1200 Other: Voiding Method Urinal Urinal # Voids 1 0 - Exam GENERAL EXAM: Alert, very pleasant, 80-year-old white male on the 28% trach collar comfortable in no apparent distress. HEAD: Normocephalic/atraumatic. EYES: Normal reaction of pupils, equal size. Conjunctiva pink, sclera white. NOSE: Clear with pink turbinates. THROAT: No erythema or exudates. NECK: No masses, no JVD, no thyroid enlargement, no adenopathy. Midline tracheostomy in place, CHEST: No chest wall deformity. Symmetrical expansion. LUNGS: Equal air entry with no crackles, wheeze, rhonchi or dullness. CVS: Regular rate and rhythm, normal S1 and S2, no gallops, no murmurs, no rubs ABDOMEN: Soft, nontender. No hepatosplenomegaly, normal bowel sounds, no guarding or rigidity. Midabdominal incision covered with dressing, is healing by secondary intention, sutures are in place, bed is 100% granulated wound bed. Right upper quadrant ileostomy in place connected to a Villafana drainage bag patient is having liquid yellow stool output EXTREMITIES: No clubbing, no edema, no cyanosis, 2+ pulses and upper and lower extremities. MUSCULOSKELETAL: Muscle strength and tone normal. SPINE: No scoliosis or deformity SKIN: No rashes CENTRAL NERVOUS SYSTEM: Alert and oriented -3. No focal deficits, tone is normal in all 4 extremities. PSYCHIATRIC: Alert and oriented -3. Appropriate affect. Intact judgment and insight. - Labs CBC & Chem 7: 10/10/20 04:02 10/10/20 04:02 Labs: Abnormal Lab Results - Last 24 Hours (Table) 10/09/20 10/09/20 10/09/20 Range/Units 11:34 18:31 23:20 RBC (4.30-5.90) m/uL Hgb (13.0-17.5) gm/dL Hct (39.0-53.0) % RDW (11.5-15.5) % Lymphocytes # (1.0-4.8) k/uL Chloride (98-107) mmol/L Carbon Dioxide (22-30) mmol/L BUN (9-20) mg/dL Creatinine (0.66-1.25) mg/dL Glucose (74-99) mg/dL POC Glucose (mg/dL) 144 H 129 H 161 H (75-99) mg/dL 10/10/20 10/10/20 10/10/20 Range/Units 04:02 04:02 06:12 RBC 3.17 L (4.30-5.90) m/uL Hgb 8.9 L (13.0-17.5) gm/dL Hct 28.7 L (39.0-53.0) % RDW 17.8 H (11.5-15.5) % Lymphocytes # 0.8 L (1.0-4.8) k/uL Chloride 110 H (98-107) mmol/L Carbon Dioxide 18 L (22-30) mmol/L BUN 63 H (9-20) mg/dL Creatinine 1.94 H (0.66-1.25) mg/dL Glucose 114 H (74-99) mg/dL POC Glucose (mg/dL) 147 H (75-99) mg/dL Assessment and Plan Plan: Assessment: 1 bilateral lower lobe pneumonia with sepsis. The chest x-ray shows improvement in the lower lobe pulmonary infiltrates and there are still some infiltration and small effusions bilaterally. He remains on IV Zosyn. 2 Acute on chronic hypoxic respiratory failure secondary to pneumonia and underlying COPD, currently on a 28% trach collar and the patient required tra cheostomy following a prolonged intubation mechanical ventilation post cardiac surgery. 3 bilateral lower lobe pneumonia, secondary to MSSA, and Klebsiella pneumonia (cultured in the sputum) 4 Sepsis secondary to pneumonia, currently off pressors 5 Acute on chronic kidney injury secondary to sepsis, , improving 6 Moderate-severe COPD. 7 History of triple-vessel coronary artery disease, bypass surgery on 07/18/2020 with multiple postoperative complications 8 History of tracheostomy mostly because of failure to wean. The patient has a #8 Shiley tracheostomy tube in place 9 Benign essential hypertension. 10 Type 2 diabetes. 11 Dyslipidemia. 12 Chronic atrial fibrillation, on amiodarone and on anticoagulation therapy 13 History of hypothyroidism. 14 History of ileostomy on 08/02/2020. 15 Chronic anemia 16 generalized motor weakness and debility seconds above-mentioned comorbidities 17 large volume diarrhea, out of the ileostomy rule out C. diff Plan: Continue antibiotics per ID service recommendations, we'll send a stool for C. diff, will start the patient on lactated Ringer's at a rate of 75 ML per hour, continue free water flushes per PEG tube. The patient nothing by mouth, continue 28% trach collar, patient is still having significant amount of secretions from the tracheostomy, no capping of the trach right now. GI and DVT prophylaxis, hemodynamically stable, no altered mentation, continue physical therapy. Continue IV hydration, continue close monitoring in the intensive care unit. I performed a history & physical examination of the patient and discussed their management with my nurse practitioner, Cheli Kendrick. I reviewed the nurse practitioner's note and agree with the documented findings and plan of care. Lung sounds are positive for diminished breath sounds The findings and the impression was discussed with the patient. I attest to the documentation by the nurse practitioner. Time with Patient: Greater than 30
[2020-10-10 11:58] LABS: Glucose,Whole Blood 152 mg/dL (75-99)
[2020-10-10] MEDS: ONDANSETRON 4 MG/2 ML VIAL IVP PRN (12:18)
[2020-10-10] MEDS: DARBEPOETIN ALFA 40 MCG/0.4 ML SYRINGE SQ SCH (12:18)
--- NOTE | 2020-10-10 13:54 | PN ---
PROGRESS NOTE Patient is seen for followup for acute kidney injury. He is currently awake, comfortable, not in any acute distress. Renal function has been improving. Serum creatinine is down to 1.94. PHYSICAL EXAMINATION: Patient is awake, comfortable. Blood pressure is 120/67, heart rate 82 per minute. He is afebrile. EXAMINATION OF THE HEART: S1, S2. EXAMINATION OF THE LUNGS: Bilateral breath sounds are heard. Abdomen is soft, nontender. Abdominal wound is dressed. Examination of lower extremities shows no significant edema. [employer]OR[employer]OM SUPERVISOR exam grossly intact. LABS: Labs show sodium 138, potassium 3.5, chloride 110, CO2 is 18, BUN 63, creatinine 1.94, hemoglobin 8.9 g/dL. ASSESSMENT: 1. Acute kidney injury, acute tubular necrosis, nonoliguric secondary to sepsis, currently improving. 2. Metabolic acidosis associated with renal failure and gastrointestinal fluid loss, started on sodium bicarb orally. 3. Chronic kidney disease stage 3 baseline creatinine 1.2-1.5 mg/dL secondary to nephrosclerosis. 4. Abdominal wound infection, maintained on antibiotics. 5. History of ischemic bowel, status post explorative laparotomy on 07/24/2020 with bowel resection and ileostomy. 6. Hypernatremia, currently resolved. 7. Sepsis. 8. Pneumonia with sputum culture growing Staphylococcus aureus and Klebsiella pneumoniae, maintained on antibiotics. PLAN: No changes from Nephrology standpoint. May continue with the Aranesp. Continue with oral sodium bicarb. Monitor electrolytes. MMODL / IJN: [id number] /
--- NOTE | 2020-10-10 13:59 | P.PN ---
Subjective Progress Note Date: 10/10/20 CHIEF COMPLAINT: Respiratory distress HISTORY OF PRESENT ILLNESS: Patient seen and examined with Dr. bangura. Patient is being followed in regards to his abdominal wound at incision site. Patient remains in the ICU. He is awake. He reports some mild abdominal pain. Patient lying in bed comfortably. Patient is still having a lot of output through his ileostomy. Discussed with dietitian. She is changed tube feedings to vital 1.2. Patient is afebrile. Trach collaring 99%. WBC 8.9 Hgb 8.9 cr eatinine 1.94 PHYSICAL EXAM: VITAL SIGNS: Reviewed. GENERAL: Well-developed in no acute distress. HEENT: No sclera icterus. Extraocular movements grossly intact. Moist buccal mucosa. Head is atraumatic, normocephalic. ABDOMEN: Soft. Nondistended. Nontender. Dressing clean dry and intact. P atient has a yellowish liquidy stool coming through the ileostomy. NEUROLOGIC: Alert and oriented. Cranial nerves II through XII grossly intact. ASSESSMENT: 1. Abdominal wound at surgical incision site. 2. History of ischemic small bowel with evidence of pneumatosis status post small bowel resection on 07/24/2020. 3. History of intraperitoneal hemorrhage and small bowel ischemia status post exploratory laparotomy, washout of peritoneal cavity and ileostomy with small bowel resection on 08/02/2020 4. History of CABG in July 2020 5. Acute hypoxic respiratory failure secondary to pneumonia 6. Sepsis secondary to pneumonia 7. Acute kidney injury 8. chronic Anemia: With known chronic kidney disease and iron deficiency. He did require blood transfusion during this admission PLAN: -Recommend ileostomy reversal when patient is medically stable -Continue wound care with Aquacel dressing -Continue supportive care -Continue ICU management -Continue antibiotics -Dietitian changing tube feedings to Vital 1.2 to help with increased ileostomy output Physician Senior Energy Trader note has been reviewed by physician. Signing provider agrees with the documented findings, assessment, and plan of care. Objective - Vital Signs Vital signs: Vital Signs Temp 97.2 F L 10/10/20 12:00 Pulse 75 10/10/20 13:00 Resp 25 H 10/10/20 13:00 BP 109/52 10/10/20 13:00 Pulse Ox 99 10/10/20 13:00 Intake & Output 10/09/20 10/10/20 10/10/20 18:59 06:59 18:59 Intake Total 1520 1490 1025 Output Total 2765 370 1350 Balance -1245 1120 -325 Weight 72.7 kg 72.7 kg Intake: IV 240 110 330 0.9 Normal Saline @ 20ml/ 240 110 30 hr Lactated Ringers 1,000 ml 300 @ 75 mls/hr IV .[id number] WADE Rx#:[id number] Intake, IV Titration 100 Amount Piperacillin-Tazobactam 3 100 .375 gm In Sodium Chloride 0.9% 100 ml @ 25 mls/hr IVPB Q8H WADE Rx#: [id number] Tube Feeding 780 780 455 Other 500 500 240 Output: Urine 215 370 150 Straight 300 Stool 2550 1200 Other: Voiding Method Urinal Urinal Urinal # Voids 1 0 - Labs CBC & Chem 7: 10/10/20 04:02 10/10/20 04:02 Labs: Abnormal Lab Results - Last 24 Hours (Table) 10/09/20 10/09/20 10/10/20 Range/Units 18:31 23:20 04:02 RBC (4.30-5.90) m/uL Hgb (13.0-17.5) gm/dL Hct (39.0-53.0) % RDW (11.5-15.5) % Lymphocytes # (1.0-4.8) k/uL Chloride 110 H (98-107) mmol/L Carbon Dioxide 18 L (22-30) mmol/L BUN 63 H (9-20) mg/dL Creatinine 1.94 H (0.66-1.25) mg/dL Glucose 114 H (74-99) mg/dL POC Glucose (mg/dL) 129 H 161 H (75-99) mg/dL 10/10/20 10/10/20 10/10/20 Range/Units 04:02 06:12 11:56 RBC 3.17 L (4.30-5.90) m/uL Hgb 8.9 L (13.0-17.5) gm/dL Hct 28.7 L (39.0-53.0) % RDW 17.8 H (11.5-15.5) % Lymphocytes # 0.8 L (1.0-4.8) k/uL Chloride (98-107) mmol/L Carbon Dioxide (22-30) mmol/L BUN (9-20) mg/dL Creatinine (0.66-1.25) mg/dL Glucose (74-99) mg/dL POC Glucose (mg/dL) 147 H 152 H (75-99) mg/dL
--- NOTE | 2020-10-10 15:36 | PN ---
PROGRESS NOTE DATE OF SERVICE: 10/10/2020 REASON FOR FOLLOWUP: Pneumonia. INTERVAL HISTORY: The patient is currently afebrile. The patient is breathing comfortably. Denies having any chest pain or shortness of breath. Occasional cough. No abdominal pain or diarrhea. PHYSICAL EXAMINATION: Blood pressure 109/52 with a pulse of 75, temperature 98. He is 99% on trach collar. General description is an elderly male lying in bed in no distress. RESPIRATORY SYSTEM: Unlabored breathing. Coarse breath sounds at the bases bilaterally. HEART: S1, S2. Regular rate and rhythm. ABDOMEN: Soft. No tenderness. LABS: Hemoglobin is 8.9, white count 8.9, BUN of 63, creatinine 1.94. DIAGNOSTIC IMPRESSION AND PLAN: Patient admitted to hospital with pneumonia. Sputum is positive for Klebsiella and the patient is covered with Zosyn; that will be continued while inpatient. transition on discharge. Continue supportive care. MMODL / IJN: [id number] /
[2020-10-10 17:18] LABS: Glucose,Whole Blood 132 mg/dL (75-99)
[2020-10-10] MEDS: FAMOTIDINE 20 MG TAB PO SCH (19:46)
[2020-10-10] MEDS: QUEtiapine 25 MG TAB PO SCH (19:46)
[2020-10-10] MEDS: ATORVASTATIN 40 MG TAB PEG/G-TUBE SCH (19:46)
--- NOTE | 2020-10-10 22:13 | P.PN ---
Progress Note - Text Progress Note Date: 10/10/20 Interval history: This is a pleasant 80 years old male with past medical history of coronary art fuad disease, COPD, diabetes mellitus, hyperlipidemia, hypertension, hypothyroidism, coronary artery disease status post cardiac cath and stent placement. He recently underwent double coronary artery bypass grafting for his triple-vessel coronary artery disease. He was in the hospital from 07/18/20- 08/25/2020 pt has tracheostomhy and PEG tube , Information were obtained with the help of at bedside, he presents with confusion, and a lot of secretion Why he states that after been discharged from acute and he went to [facility] aren't states therefore one month and 5 days and then he was discharged a few days ago to shelter at [facility] on Friday, however over the weekend he has more congestion, he has weak cough and needed frequent suctioning, patient was able to talk weekly his little confused but he can't communicate through gesture, he denies pain but he is tachypneic He has tracheostomy, PEG tube and try to colostomy. Admitted with-hypotension secondary to severe sepsis secondary to pneumonia, aspiration pneumonia, acute hypoxic respiratory failure, acute kidney injury secondary to ATN, elevated sodium, increased lactic acid, elevated troponin felt to be from tachycardia. Recent history of intraperitoneal hemorrhage status post laboratory with washout and ileostomy on 08/02/2020. Tracheostomy Today-ICU: Awake, following commands. Tube feeding at 65 mL an hour. decreased tracheostomy secretions. Ileostomy functioning with light-colored yellow stool.C. diff ruled out Review of systems: Patient unable to talk Active Medications Acetaminophen (Acetaminophen Tab 325 Mg Tab) 650 mg PO Q6HR PRN PRN Reason: Mild Pain or Fever > 100.5 Last Admin: 10/10/20 17:23 Dose: 650 mg Documented by: Albuterol/Ipratropium (Ipratropium-Albuterol 3 Ml Neb) 3 ml INHALATION RT-QID WADE Last Admin: 10/10/20 19:22 Dose: 3 ml Documented by: Albuterol/Ipratropium (Ipratropium-Albuterol 3 Ml Neb) 3 ml INHALATION RT-Q2H PRN PRN Reason: Shortness Of Breath Or Wheezing Last Admin: 10/03/20 21:27 Dose: 3 ml Documented by: Amiodarone HCl (Amiodarone 200 Mg Tab) 200 mg PO BID [facility] Last Admin: 10/10/20 19:46 Dose: 200 mg Documented by: Aspirin (Aspirin 81 Mg) 81 mg PO DAILY [facility] Last Admin: 10/10/20 09:46 Dose: 81 mg Documented by: Atorvastatin Calcium (Atorvastatin 40 Mg Tab) 40 mg PEG/G-TUBE HS@2000 [facility] Last Admin: 10/10/20 19:46 Dose: 40 mg Documented by: Budesonide (Budesonide 1 Mg/2 Ml Nebu) 1 mg INHALATION RT-BID [facility] Last Admin: 10/10/20 19:22 Dose: 1 mg Documented by: Cholestyramine Resin (Cholestyramine (With Sugar) 4 Gm Packet) 4 gm PO BID@1000,1800 [facility] Last Admin: 10/10/20 17:23 Dose: 4 gm Documented by: Darbepoetin Alex (Darbepoetin Alex 40 Mcg/0.4 Ml Syringe) 40 mcg SQ Q7D [facility] Last Admin: 10/10/20 12:18 Dose: 40 mcg Documented by: Famotidine (Famotidine 20 Mg Tab) 20 mg PO HS [facility] Last Admin: 10/10/20 19:46 Dose: 20 mg Documented by: Piperacillin Sod/Tazobactam (Sod 3.375 gm/ Sodium Chloride) 100 mls @ 25 mls/hr IVPB Q8H [facility] Last Admin: 10/10/20 19:47 Dose: 25 mls/hr Documented by: Lactated Ringer's (Lactated Ringers) 1,000 mls @ 75 mls/hr IV .[id number] [facility] Last Admin: 10/10/20 19:47 Dose: 75 mls/hr Documented by: Insulin Aspart (Insulin Aspart (Novolog) 100 Unit/Ml Vial) 0 unit SQ Q6H [facility]; Protocol Last Admin: 10/10/20 18:40 Dose: 1 unit Documented by: Levothyroxine Sodium (Levothyroxine 50 Mcg Tab) 50 mcg PEG/G-TUBE DAILY@0600 [facility] Last Admin: 10/10/20 05:53 Dose: 50 mcg Documented by: Melatonin (Melatonin 3 Mg Tablet) 3 mg PO HS PRN PRN Reason: Insomnia Last Admin: 10/09/20 21:49 Dose: 3 mg Documented by: Metoprolol Tartrate (Metoprolol Tartrate 25 Mg Tab) 25 mg PO TID [facility] Last Admin: 10/10/20 19:46 Dose: 25 mg Documented by: Midodrine (Midodrine 5 Mg Tab) 10 mg PO Q8HR [facility] Last Admin: 10/10/20 17:22 Dose: 10 mg Documented by: Miscellaneous Information (Potassium Replacement Protocol 1 Each Misc) 1 each MISCELLANE DAILY PRN; Protocol PRN Reason: Per Protocol Naloxone HCl (Naloxone 0.4 Mg/Ml 1 Ml Vial) 0.2 mg IV Q2M PRN PRN Reason: Opioid Reversal Ondansetron HCl (Ondansetron 4 Mg/2 Ml Vial) 4 mg IVP Q8HR PRN PRN Reason: Nausea And Vomiting Last Admin: 10/10/20 12:18 Dose: 4 mg Documented by: Quetiapine Fumarate (Quetiapine 25 Mg Tab) 25 mg PO HS [facility] Last Admin: 10/10/20 19:46 Dose: 25 mg Documented by: Sodium Bicarbonate (Sodium Bicarbonate Tab 650 Mg Tab) 650 mg PO BID [facility] Last Admin: 10/10/20 19:46 Dose: 650 mg Documented by: Tamsulosin HCl (Tamsulosin 0.4 Mg Cap.Er.24h) 0.4 mg PO PC-BRKFST [facility] Last Admin: 10/10/20 09:47 Dose: 0.4 mg Documented by: On examination: VITAL SIGNS: 97.8, 74, 31, 130/60, 99% on trach collar FiO2 28% GENERAL APPEARANCE: Laying in bed, awake, tired HEENT: Normal external appearance of nose and ear. . Trach collar with shield EYES: Pupils equal. Conjunctiva normal. NECK: JVD not raised. Mass not palpable. RESPIRATORY: Respiratory effort increased Lungs decreased breath sounds and crackles. CARDIOVASCULAR: First and second sounds normal. No edema. ABDOMEN: Soft. Liver and spleen not palpable. Ileostomy with yellow stool liquid. PSYCHIATRY: Alert and oriented x3. Mood and affect tired INVESTIGATIONS, reviewed in the clinical context: Family : WBC 8.9 hemoglobin 8.9 potassium 3.9 bun 63 creatinine 1.94 October 09: WBC 8.5 hemoglobin 9. She is 257 potassium 3.7 bun 67 creatinine 2.18 October 08: White count 7.9 hemoglobin 8.4 potassium 3.8 creatinine 2.53 October 07: White count 7 hemoglobin 8.2 platelets 271 potassium 3.6 creatinine 2.9 White count 7.1 hemoglobin 8.7 platelets 256 potassium 3.8 bicarbonate 20 bun 33 creatinine 3.17 Sputum culture-positive for Staphylococcus aureus MSSA, Klebsiella Pneumoniae Previous labs: White count 16.6 hemoglobin 9.9 platelets 584 bun 100 creatinine 3.18 Coronavirus PCR-not detected Renal ultrasound-normal bilateral renal ultrasound Assessment and plan: -Hypotensive shock -better. remains off norepinephrine IV , on midodrine- -Abdominal wound at surgical incision site, followed by general surgery with local dressing -History of ischemic small bowel with evidence of pneumatosis status post small bowel resection on 07/24/2020 -Ileostomy for intraperitoneal hemorrhage and small bowel ischemia status post exploratory laboratory or short of periportal cavity on 08/02/2020 -Coronary artery disease with bypass in July 2020, and Lopressor. Aspirin -Acute hypoxic respiratory failure secondary to pneumonia, continue with oxygen supplementation, currently with the trach collar, 28% -Anemia secondary to chronic kidney disease , follow H&H -Acute kidney injury secondary to ATN secondary to hypotension and hemodynamic instability - slow to respond. Creatinine 1.94 -Chronic kidney disease stage III the baseline creatinine of 1.2-1.5 secondary to nephrosclerosis -Paroxysmal atrial fibrillation with rapid ventricular rate on amiodarone by mouth, Lopressor, converted to sinus rhythm -Hypernatremia secondary to decreased oral water intake. Receiving free water- improved -Possible aspiration pneumonia, sputum positive for MSSA and Klebsiella pn eumoniae., Causing sepsis On IV Zosyn -Stage II sacral pressure ulcer, right heel decub -Hypothyroidism, continue Synthroid -Moderate to severe COPD, on bronchodilators, inhaled steroids -Diabetes mellitus type 2, follow Accu-Cheks -Essential hypertension -Hyperlipidemia, continue Lipitor -BPH on Flomax -Enteral tube feeding at 65 mL an hour -DO NOT RESUSCITATE Remains in ICU. could be moved out of the ICU when okay with anesthesia resident
[2020-10-11 00:04] LABS: Glucose,Whole Blood 135 mg/dL (75-99)
[2020-10-11] MEDS: MIDODRINE 5 MG TAB PO SCH ×3 (00:12→17:40)
[2020-10-11] MEDS: INSULIN ASPART (NovoLOG) 100 UNIT/ML VIAL SQ SCH ×4 (00:12→18:02)
[2020-10-11] MEDS ORDERED: DEXTROSE 5% IN WATER 100 ML with AMIODARONE 150 MG IV ONE (03:48)
[2020-10-11] MEDS ORDERED: AMIODARONE 360 MG in DEXTROSE 5% IN WATER 200 ML IV ONE ×2 (03:49)
[2020-10-11 03:51] LABS: Anisocytosis Slight; Basophils # (A) 0.1 k/uL (0-0.2); Basophils % (A) 1 %; Eosinophils # (A) 0.2 k/uL (0-0.7); Eosinophils % (A) 2 %; HCT 29.5 % (39.0-53.0); HGB 9.3 gm/dL (13.0-17.5); Hypochromasia Marked; Lymphocytes # (A) 0.8 k/uL (1.0-4.8); Lymphocytes % (A) 7 %; MCH 28.7 pg (25.0-35.0); MCHC 31.5 g/dL (31.0-37.0); Mean Platelet Volume 7.3; Monocytes # (A) 0.6 k/uL (0-1.0); Monocytes % (A) 6 %; Neutrophils # (A) 9.3 k/uL (1.3-7.7); Neutrophils % (A) 84 %; Platelet Count 253 k/uL (150-450); Poikilocytosis Slight; RBC 3.24 m/uL (4.30-5.90); WBC 11.1 k/uL (3.8-10.6)
[2020-10-11] MEDS: ONDANSETRON 4 MG/2 ML VIAL IVP PRN (03:52)
[2020-10-11] MEDS: PIPERACILLIN-TAZOBACTAM 3.375 GM in SODIUM CHLORIDE 0.9% 100 ML IVPB SCH ×3 (03:53→20:30)
[2020-10-11] MEDS: ACETAMINOPHEN TAB 325 MG TAB PO PRN ×3 (03:53→20:28)
[2020-10-11 04:05] LABS: Albumin 2.5 g/dL (3.5-5.0); Calcium 9.5 mg/dL (8.4-10.2); Potassium 3.8 mmol/L (3.5-5.1); Total Bilirubin 0.5 mg/dL (0.2-1.3); Total Protein 5.6 g/dL (6.3-8.2)
[2020-10-11] MEDS ORDERED: POTASSIUM BICARBONATE/CIT AC 20 MEQ TABLET.EFF NG-TUBE SCH (05:00)
[2020-10-11 05:35] LABS: Glucose,Whole Blood 158 mg/dL (75-99)
--- NOTE | 2020-10-11 07:33 | XR ---
EXAMINATION TYPE: XR chest 1V portable DATE OF EXAM: 10/11/2020 Comparison: 10/08/2020 Clinical History: 80-year-old male PNA. Trach Findings: Tracheostomy cannula is in place. Right PICC tip is short, probably within the lower right subclavian vein. Median sternotomy wires and post-CABG clips in the mediastinum. Hyperinflation. Heart normal s ize. Continued small effusions with bibasilar opacities. Impression: 1. Short right PICC, tip likely in the lower right subclavian vein. 2. COPD and continued small effusions with adjacent atelectasis and/or consolidation.
[2020-10-11] MEDS: BUDESONIDE 1 MG/2 ML NEBU INHALATION SCH ×2 (08:48→19:41)
[2020-10-11] MEDS: IPRATROPIUM-ALBUTEROL 3 ML NEB INHALATION SCH ×4 (08:48→19:41)
[2020-10-11] MEDS ORDERED: DIPHENOX-ATROP 2.5-0.025 MG 1 EACH TAB PO PRN (09:05)
--- NOTE | 2020-10-11 09:11 | P.PN ---
Subjective Progress Note Date: 10/11/20 Principal diagnosis: Acute on chronic hypoxic respiratory failure secondary to left lower lobe pneumonia and sepsis This is a 80-year-old white male familiar to my service, in July 2020, patient underwent elective coronary artery bypass grafting. He had a very complicated postoperative course, patient required multiple abdominal surgeries, multiple intubations, extubations, and the intubations, patient was a failure to wean, and he had multiple abdominal surgeries during his stay. Patient underwent tracheostomy, PEG tube placement, and we were able to transfer the pa maty to an extended care facility. He was at the extended care facility until about a week ago, his tracheostomy was capped, and he was transferred to [facility] in [facility]. Patient has been noticing increased cough, increased shortness of breath, and significant purulent secretions from the tracheostomy tube when uncapped. O2 saturation was dipping down into the 50s and in the ER he had a saturation of 86% on 15 L high flow nasal cannula. Patient was also noted to have leukocytosis, hemoglobin was low, his troponin was slightly elevated, blood pressure was noted to be marginally low, patient was admitted initially to the cardiac floor, however supposedly he was noted to have blood pressure in the 70s systolic. Patient did receive multiple fluid boluses in the ER over 3 L were given, and we were notified about the patient on the floor having low blood pressure, I recommended transferred to the ICU planning to start the patient on norepinephrine. However over the last 12 hours in the ICU, his blood pressure has been stable patient did not require placement on any pressors. His beta blockers had been on hold because of low blood pressure, and he is maintained on amiodarone. His pro-calcitonin level was noted to be 2.60. And his chest x-ray showed left lower lobe atelectasis, suspect left lower lobe pneumonia. And he had small pleural effusions noted more so than right. Going back to his previous hospital admission, patient did have left lower lobe pneumonia and he did have left pleural effusion requiring thoracentesis once or twice. Cultures previously from the sputum were positive for Pseudomonas fluorescence/putida, sensitive to Zosyn and Levaquin and meropenem. Also sensitive to cefepime. Considering the patient's presentation with hypotension, shortness of breath, cough, abnormal chest x-ray, hypoxia, and considering his recent clinical history, we were asked to see him on consultation Patient was reevaluated today on 10/04/2020, patient remains in the ICU, he is on trach collar a 55%, patient went into atrial fibrillation with RVR yesterday, and he went on amiodarone at 1 mg/m, he also received 1 unit of packed RBCs for hemoglobin of 6.7, patient converted to sinus rhythm. Remains in sinus rhythm, patient is receiving tube feeds/Nepro at 65/65. He is also receiving free water. Chest x-ray is showing minimal improvement in the left lower lobe consolidation, clinically the patient is feeling better, he is empirically on antibiotics for healthcare acquired pneumonia/Zosyn. Previous sputum cultures were positive for Pseudomonas, hence his Zosyn was chosen as the drug of choice. CBC today showed WBC 7.2 hemoglobin 6.7, hence a unit of blood was given. Electrolytes showed low sodium but improving today is 148 from 150 to yesterday. BUN is 108 creatinine 3.4 to about the same as yesterday. Reevaluated today on 10/05/2020, patient remains in the ICU, remains on 55% trach collar. Off norepinephrine, IV fluids at KVO, tolerating enteral feeding via PEG tube, patient continues to have significant amount of tracheal secretions, he is now on Zosyn and vancomycin, as well as Zyvox. His cultures from the sputum are showing MSSA, hence we will discontinue vancomycin, keep him on Zosyn, and infectious disease to address his Zyvox. Patient may not even require Zyvox considering the culture is positive for MSSA. Chest x-ray is showing bilateral pleural effusions/small, renal functioning is slightly improved over the last 24 hours. Patient was switched to oral amiodarone, and he seems to be doing quite well, in sinus rhythm. Reevaluated today on 10/06/2020, patient remains in the ICU, remains on trach collar at 28%, sputum came back positive for Klebsiella and MSSA. Patient is on Zosyn and Zyvox. Remains on a small dose of norepinephrine at 0.01 mcg/kg/m, remains on enteral feeding/Nepro at 65 ML per hour, also receiving Questran. Patient continues to have significant output from his ileostomy. Patient is feeling better overall compared to how he felt on presentation. CBC today is relatively normal WBC count is 7.1 hemoglobin is 8.7, electrolytes are normal BUN is 93 creatinine is 3.17, improving over the last couple of days. Blood cultures remain negative. Again his sputum cultures are positive for MSSA and Klebsiella pneumonia. Reevaluated today on 10/07/2020, patient remains in the ICU, remains on trach collar at 28%, receiving antibiotics for his Klebsiella and MSSA pneumonia. Patient is only on Zosyn, and his Zyvox was discontinued since it was initially started by infectious disease for possible MRSA. Patient is requiring intermittently small doses of norepinephrine, clinically however the patient is much better compared to how he felt when he came in. He is in no distress, this morning he is off norepinephrine, but he didn't require norepinephrine last night, hence I will not transfer the patient out of the ICU yet. Chest x-ray continues to show by basilar atelectasis, possible left lower lobe consolidation which is chronic. Secretions from the tracheostomy are less and less. Renal profile is improving, creatinine is down to 2.9. CBC is normal. Electrolytes are normal. On 10/08/2020 the patient is being seen in follow-up in the intensive unit. His , comfortable and currently is on a trach collar with an FiO2 of 28%. The chest x-ray shows small bilateral pleural effusions and there is adequate expansion of both lungs and a orotracheal tube is in a good location. Note that he had MSSA and Klebsiella in his sputum and patient is currently on IV antibiotics and he is receiving IV Zosyn. Patient continues to have copious amount of secretions through his tracheostomy tube and the patient has a #8 [address] tracheostomy tube in place and he is requiring suctioning every 2 hours at least. He still has a lot of rhonchi He is currently off pressors. He is in normal sinus rhythm. He has also PEG tube for enteral feeding and nutritional support. PEG tube is in place and the patient is on Nepro at the rate of 75 mL an hour. He continues to have output through his ileostomy bag. The patient has significant amount of output through his ileostomy was in the order of every 12 hours. No abdominal distention. No signs of any respiratory distress. The creatinine is improving and is currently down to 2.5 and the patient's hemoglobin is at 8.4. No fever. No other issues overnight. Villafana cath is also in place. He is able to communicate. However he is still profoundly weak/in lower extremities. He is able to raise his arms against gravity. On 10/09/2020 patient seen in follow-up in the intensive care unit. Patient is awake and alert, is following commands, moving all 4 extremities, no signs of any respiratory distress, he is breathing comfortably, on 28% trach collar. His pulse ox is 98%. Still having some secretions from his tracheostomy, related he is on Zosyn for antibiotic coverage. Remains on nebulized bronchodilators, hemodynamically patient has been stable. No requiring any vasopressor support for last 48 hours. No acute events overnight. His sputum cultures were positive for MSSA and Klebsiella pneumonia. Today's labs have been reviewed, normal white count at 8.5, hemoglobin is 9.0, sodium is 137, potassium is 3.7, chloride is 110, B1 is 67, creatinine is 2.18. Patient has been nothing by mouth and has been receiving nutrition in the form of Nepro at 65 with a goal of 65. Patient has had significant diarrhea, liquid yellow output from his ileostomy. No complaints of chest pain. He is in sinus mechanism with a controlled rate. Chest x-ray shows basilar infiltrates and atelectasis with small effusions. On 10/10/2020 patient seen in follow-up in the intensive care unit. He is awake and alert, oriented 3, his calm and cooperative, he denies any acute distress, he still has significant amount of secretions that are being suctioned from the tracheostomy tube, he remains on 20% trach collar. He remains on antibiotics, his sputum cultures were positive for MSSA and Klebsiella pneumonia, he is on Zosyn, he has had no fever or chills. Lung sounds reveal minimal rhonchi, less congested and wheezy on today's exam compared a few days ago. Patient is tolerating tube feedings, he remains strict nothing by mouth, he is on Nepro at a rate of 65 ML per hour with a goal of 65 with 125 ML free water flushes every 3 hours. Abdomen is soft, ileostomy is still producing copious amount of liquid yellow diarrhea, which will be sent for C. diff. There has been a total of 2.5 L in stool output in the last 24 hours. Today's labs have been reviewed, white blood cell count is 8.9, hemoglobin is 8.9, CO2 is 18, sodium is 138, potassium is 3.9, chloride is 110, renal profile is improving despite the diarrhea, with BUN of 63, creatinine is 1.94. Patient is working with physical therapy and yesterday he apparently was up in the chair with assistance, tolerated activity well. On 10/11/2020 patient seen in follow-up in intensive care unit, she remains on 28% trach collar, the pulse ox of 97%, vital signs have been stable, his been afebrile, he did have a run of A. fib with RVR this morning and was restarted on amiodarone drip and was given 150 mg bolus of amiodarone. He is currently back in sinus mechanism with a controlled rate, receiving hydration with LR at 75 ML per hour, he continues to have large volume diarrhea out of his ileostomy, he had to 3.3 L in stool output in last 24 hours, C. diff was negative. tube feedings have been switched to vital AF currently running at 75 ML per hour, patient is getting free water flushes of 125 ML every 3 hours. Yesterday we placed him on lactated Ringer's at rate of 75 ML per hour, he is receiving or sodium bicarbonate tablets, his bicarbonate concentration at today's labs has improved and is up to 23. The renal profile slightly improved. Continues on Zosyn for MSSA and Klebsiella pneumonia in sputum cultures, blood cultures have been negative, patient has been afebrile, blood pressure stable, the patient continues on midodrine. Patient is awake and alert, following commands, responding appropriately, appears tired on today's exam. Denies any acute distress, his been working with physical therapy, he stood at the bedside, he is too weak to walk. Abdomen is soft, mid abdominal incision is covered with a dressing. Objective - Vital Signs Vital signs: Vital Signs Temp 98 F 10/11/20 04:00 Pulse 71 10/11/20 09:02 Resp 24 10/11/20 07:00 BP 107/65 10/11/20 07:00 Pulse Ox 97 10/11/20 07:00 Intake & Output 10/10/20 10/11/20 10/11/20 18:59 06:59 18:59 Intake Total 2024 2069 150 Output Total 2649 1700 0 Balance -625 370 150 Weight 72.7 kg 75.5 kg Intake: IV 780 825 75 0.9 Normal Saline @ 20ml/ 30 hr Lactated Ringers 1,000 ml 750 825 75 @ 75 mls/hr IV .[id number] [facility] Rx#:[id number] Tube Feeding 845 745 75 Other 400 500 Output: Urine 450 550 0 Stool 2200 1150 Other: Voiding Method Urinal Urinal # Voids 0 - Exam GENERAL EXAM: Alert, very pleasant, 80-year-old white male on the 28% trach c ollar comfortable in no apparent distress. HEAD: Normocephalic/atraumatic. EYES: Normal reaction of pupils, equal size. Conjunctiva pink, sclera white. NOSE: Clear with pink turbinates. THROAT: No erythema or exudates. NECK: No masses, no JVD, no thyroid enlargement, no adenopathy. Midline tracheo stomy in place, CHEST: No chest wall deformity. Symmetrical expansion. LUNGS: Equal air entry with no crackles, wheeze, rhonchi or dullness. CVS: Regular rate and rhythm, normal S1 and S2, no gallops, no murmurs, no rubs ABDOMEN: Soft, nontender. No hepatosplenomegaly, normal bowel sounds, no gua rding or rigidity. Midabdominal incision covered with dressing, is healing by secondary intention, sutures are in place, bed is 100% granulated wound bed. Right upper quadrant ileostomy in place connected to a Villafana drainage bag patient is having liquid yellow stool output EXTREMITIES: No clubbing, no edema, no cyanosis, 2+ pulses and upper and lower extremities. MUSCULOSKELETAL: Muscle strength and tone normal. SPINE: No scoliosis or deformity SKIN: No rashes CENTRAL NERVOUS SYSTEM: Alert and oriented -3. No focal deficits, tone is normal in all 4 extremities. PSYCHIATRIC: Alert and oriented -3. Appropriate affect. Intact judgment and insight. - Labs CBC & Chem 7: 10/11/20 03:30 10/11/20 03:30 Labs: Abnormal Lab Results - Last 24 Hours (Table) 10/10/20 10/10/20 10/11/20 Range/Units 11:56 17:17 00:03 WBC (3.8-10.6) k/uL RBC (4.30-5.90) m/uL Hgb (13.0-17.5) gm/dL Hct (39.0-53.0) % RDW (11.5-15.5) % Neutrophils # (1.3-7.7) k/uL Lymphocytes # (1.0-4.8) k/uL Chloride (98-107) mmol/L BUN (9-20) mg/dL Creatinine (0.66-1.25) mg/dL Glucose (74-99) mg/dL POC Glucose (mg/dL) 152 H 132 H 135 H (75-99) mg/dL Total Protein (6.3-8.2) g/dL Albumin (3.5-5.0) g/dL 10/11/20 10/11/20 10/11/20 Range/Units 03:30 03:30 05:34 WBC 11.1 H (3.8-10.6) k/uL RBC 3.24 L (4.30-5.90) m/uL Hgb 9.3 L (13.0-17.5) gm/dL Hct 29.5 L (39.0-53.0) % RDW 18.0 H (11.5-15.5) % Neutrophils # 9.3 H (1.3-7.7) k/uL Lymphocytes # 0.8 L (1.0-4.8) k/uL Chloride 108 H (98-107) mmol/L BUN 58 H (9-20) mg/dL Creatinine 1.78 H (0.66-1.25) mg/dL Glucose 114 H (74-99) mg/dL POC Glucose (mg/dL) 158 H (75-99) mg/dL Total Protein 5.6 L (6.3-8.2) g/dL Albumin 2.5 L (3.5-5.0) g/dL Assessment and Plan Plan: Assessment: 1 bilateral lower lobe pneumonia with sepsis. The chest x-ray shows improvement in the lower lobe pulmonary infiltrates and there are still some infiltration and small effusions bilaterally. He remains on IV Zosyn. 2 Acute on chronic hypoxic respiratory failure secondary to pneumonia and underlying COPD, currently on a 28% trach collar and the patient required tracheostomy following a prolonged intubation mechanical ventilation post cardiac surgery. 3 bilateral lower lobe pneumonia, secondary to MSSA, and Klebsiella pneumonia (cultured in the sputum) 4 Sepsis secondary to pneumonia, currently off pressors 5 Acute on chronic kidney injury secondary to sepsis, , improving 6 Moderate-severe COPD. 7 History of triple-vessel coronary artery disease, bypass surgery on 07/18/2020 with multiple postoperative complications 8 History of tracheostomy mostly because of failure to wean. The patient has a #8 Shiley tracheostomy tube in place 9 Benign essential hypertension. 10 Type 2 diabetes. 11 Dyslipidemia. 12 Chronic atrial fibrillation, on amiodarone and on anticoagulation therapy 13 History of hypothyroidism. 14 History of ileostomy on 08/02/2020. 15 Chronic anemia 16 generalized motor weakness and debility seconds above-mentioned comorbidities 17 large volume diarrhea, out of the ileostomy, C. diff has been ruled out Plan: Continue IV hydration, continue free water flushes, tube feeding formula has been switched related to large volume liquid stool output. Patient is back in sinus mechanism, did have a bout of A. fib with RVR last night, he is back on amiodarone drip, cardiology is following, he is on oral anticoagulation, vital signs have been stable, no fever or chills, continues on Zosyn. Maintain nothing by mouth, still having significant amount of diarrhea, C. diff is negative, continue Questran, we will add Lomotil. Replace potassium per protocol. GI prophylaxis, maintain aspiration precautions, continue physical therapy. Continue monitoring in the ICU I performed a history & physical examination of the patient and discussed their management with my nurse practitioner, Cheli Kendrick. I reviewed the nurse practitioner's note and agree with the documented findings and plan of care. Lung sounds are positive for diminished breath sounds The findings and the impression was discussed with the patient. I attest to the documentation by the nurse practitioner. Time with Patient: Greater than 30
[2020-10-11] MEDS: ASPIRIN 81 MG PO SCH (09:26)
[2020-10-11] MEDS: SODIUM BICARBONATE TAB 650 MG TAB PO SCH ×2 (09:26→20:28)
[2020-10-11] MEDS: TAMSULOSIN 0.4 MG CAP.ER.24H PO SCH (09:26)
[2020-10-11] MEDS: CHOLESTYRAMINE (WITH SUGAR) 4 GM PACKET PO SCH ×2 (09:26→17:40)
[2020-10-11] MEDS: METOPROLOL TARTRATE 25 MG TAB PO SCH ×3 (09:26→20:30)
[2020-10-11] MEDS: AMIODARONE 450 MG in DEXTROSE 5% IN WATER 250 ML IV SCH ×2 (09:40)
--- NOTE | 2020-10-11 09:42 | PN ---
PROGRESS NOTE Mr. Tinoco is a 80-year-old male with known history of coronary artery disease, status post coronary artery bypass grafting who had a complicated postoperative course, underwent a tracheostomy and ileostomy. He was readmitted with progressive dyspnea and evidence of pneumonia. He is awake, alert, on the collar trach. Hemodynamically, he is stable in sinus mechanism. There is no evidence of malignant arrhythmia. He has no further episode of atrial fibrillation. His urine output has been good. He appears to be more awake and alert. He still has secretions from his trach. He continues to be on aspirin once a day, Lipitor 40 mg daily, cholestyramine, insulin, metoprolol tartrate 25 mg 3 times a day, midodrine, sodium bicarb. PHYSICAL EXAMINATION: Blood pressure 104/50 with the heart rate in the 90s. LUNGS: Clear anteriorly. HEART: Regular rate and rhythm. S1, S2. No S3 with a systolic murmur. No diastolic murmur. ABDOMEN: Soft, nontender. Ileostomy in place. PEG tube in place. EXTREMITIES: No edema. LAB DATA: Lab data revealed BUN and creatinine 58 and 1.78. Potassium 3.8. Hemoglobin of 9.3. IMPRESSION: 1. Respiratory failure with pneumonia, improving. 2. Status post coronary artery bypass grafting with complicated postoperative course. 3. Paroxysmal atrial fibrillation, remains in sinus mechanism. 4. Anemia. 5. Chronic kidney disease. 6. Status post tracheostomy. 7. Status post abdominal surgery. RECOMMENDATION: From the cardiac standpoint, will continue present therapy. His hemoglobin has been stable. If agreeable with the Intensive Care Service, I will re-initiate anticoagulation because of his history of paroxysmal atrial fibrillation. MMODL / IJN: [id number] /
[2020-10-11 11:44] LABS: Glucose,Whole Blood 158 mg/dL (75-99)
--- NOTE | 2020-10-11 12:32 | PN ---
PROGRESS NOTE Patient is seen for followup for acute kidney injury. Renal function continues to improve. Patient is currently awake, comfortable. Denies any significant complaints. PHYSICAL EXAMINATION: Blood pressure is 110/68, heart rate 78 per minute. He is afebrile. EXAMINATION OF THE HEART: S1, S2. EXAMINATION OF THE LUNGS: Bilateral breath sounds are heard. Abdomen is soft. Incision is dressed. Examination of lower extremities shows no significant edema. LABS: Labs show sodium 140, potassium 3.8, chloride 108, BUN 58, creatinine 1.78, hemoglobin 9.3 g/dL. ASSESSMENT: 1. Acute kidney injury, acute tubular necrosis, secondary to sepsis, hypotension, currently improving. 2. Hypernatremia, now improved. 3. Abdominal wound infection. 4. History of ischemic bowel, status post explorative laparotomy in July with bowel resection and ileostomy. 5. Metabolic acidosis, now improved. 6. Pneumonia with sputum culture growing Staphylococcus aureus and Klebsiella pneumoniae, maintained on antibiotics. PLAN: Continue to avoid nephrotoxic agents. Encourage increased oral intake. Continue with the Aranesp for now. I will decrease the sodium bicarb by tomorrow once the CO2 continues to improve. MMODL / IJN: [id number] /
--- NOTE | 2020-10-11 13:06 | P.PN ---
Subjective Progress Note Date: 10/11/20 CHIEF COMPLAINT: Respiratory distress HISTORY OF PRESENT ILLNESS: Patient seen and examined with Dr. bangura. Patient is being followed in regards to his abdominal wound at incision site. Patient remains in the ICU. He is awake. He denies any abdominal pain. Patient lying in bed comfortably. Patient is still having a lot of output through his ileostomy. Tube feedings changed yesterday to vital 1.2. Patient did have episode of A. fib with RVR. And was restarted on amiodarone drip per cardiology. Patient is afebrile. Trach collaring 99%. WBC 11.1 cr 1.78 critical care service also added Lomotil to help decrease output through ostomy. PHYSICAL EXAM: VITAL SIGNS: Reviewed. GENERAL: Well-developed in no acute distress. HEENT: No sclera icterus. Extraocular movements grossly intact. Moist buccal mucosa. Head is atraumatic, normocephalic. ABDOMEN: Soft. Nondistended. Nontender. Dressing clean dry and intact. Patient has a yellowish liquidy stool coming through the ileostomy. NEUROLOGIC: Alert and oriented. Cranial nerves II through XII grossly intact. ASSESSMENT: 1. Abdominal wound at surgical incision site. 2. History of ischemic small bowel with evidence of pneumatosis status post small bowel resection on 07/24/2020. 3. History of intraperitoneal hemorrhage and small bowel ischemia status post exploratory laparotomy, washout of peritoneal cavity and ileostomy with small bowel resection on 08/02/2020 4. History of CABG in July 2020 5. Acute hypoxic respiratory failure secondary to pneumonia 6. Sepsis secondary to pneumonia 7. Acute kidney injury 8. chronic Anemia: With known chronic kidney disease and iron deficiency. He did require blood transfusion during this admission PLAN: -Recommend ileostomy reversal when patient is medically stable -Continue wound care with Aquacel dressing -Continue supportive care -Continue ICU management -Continue antibiotics -Dietitian changing tube feedings to Vital 1.2 to help with increased ileostomy output -Continue IV fluids Physician Electric Meter Technician note has been reviewed by physician. Signing provider agrees with the documented findings, assessment, and plan of care. Objective - Vital Signs Vital signs: Vital Signs Temp 96.6 F L 10/11/20 08:00 Pulse 70 10/11/20 11:36 Resp 27 H 10/11/20 11:00 BP 105/65 10/11/20 11:00 Pulse Ox 98 10/11/20 11:00 Intake & Output 10/10/20 10/11/20 10/11/20 18:59 06:59 18:59 Intake Total 2024 2069 1160 Output Total 2650 1700 350 Balance -625 370 810 Weight 72.7 kg 75.5 kg Intake: IV 780 825 450 0.9 Normal Saline @ 20ml/ 30 hr Lactated Ringers 1,000 ml 750 825 450 @ 75 mls/hr IV .[id number] [facility] Rx#:[id number] Tube Feeding 845 745 460 Other 400 500 250 Output: Urine 450 550 350 Stool 2200 1150 Other: Voiding Method Urinal Urinal Urinal # Voids 0 - Labs CBC & Chem 7: 10/11/20 03:30 10/11/20 03:30 Labs: Abnormal Lab Results - Last 24 Hours (Table) 10/10/20 10/11/20 10/11/20 Range/Units 17:17 00:03 03:30 WBC 11.1 H (3.8-10.6) k/uL RBC 3.24 L (4.30-5.90) m/uL Hgb 9.3 L (13.0-17.5) gm/dL Hct 29.5 L (39.0-53.0) % RDW 18.0 H (11.5-15.5) % Neutrophils # 9.3 H (1.3-7.7) k/uL Lymphocytes # 0.8 L (1.0-4.8) k/uL Chloride (98-107) mmol/L BUN (9-20) mg/dL Creatinine (0.66-1.25) mg/dL Glucose (74-99) mg/dL POC Glucose (mg/dL) 132 H 135 H (75-99) mg/dL Total Protein (6.3-8.2) g/dL Albumin (3.5-5.0) g/dL 10/11/20 10/11/20 10/11/20 Range/Units 03:30 05:34 11:42 WBC (3.8-10.6) k/uL RBC (4.30-5.90) m/uL Hgb (13.0-17.5) gm/dL Hct (39.0-53.0) % RDW (11.5-15.5) % Neutrophils # (1.3-7.7) k/uL Lymphocytes # (1.0-4.8) k/uL Chloride 108 H (98-107) mmol/L BUN 58 H (9-20) mg/dL Creatinine 1.78 H (0.66-1.25) mg/dL Glucose 114 H (74-99) mg/dL POC Glucose (mg/dL) 158 H 158 H (75-99) mg/dL Total Protein 5.6 L (6.3-8.2) g/dL Albumin 2.5 L (3.5-5.0) g/dL
[2020-10-11 13:20] LABS: Glucose,Whole Blood 140 mg/dL (75-99)
[2020-10-11] MEDS: LACTATED RINGERS 1,000 ML IV SCH (13:28)
[2020-10-11 17:49] LABS: Glucose,Whole Blood 147 mg/dL (75-99)
--- NOTE | 2020-10-11 19:21 | P.PN ---
Progress Note - Text Progress Note Date: 10/11/20 Interval history: This is a pleasant 80 years old male with past medical history of coronary art fuad disease, COPD, diabetes mellitus, hyperlipidemia, hypertension, hypothyroidism, coronary artery disease status post cardiac cath and stent placement. He recently underwent double coronary artery bypass grafting for his triple-vessel coronary artery disease. He was in the hospital from 07/18/20- 08/25/2020 pt has tracheostomhy and PEG tube , Information were obtained with the help of at bedside, he presents with confusion, and a lot of secretion Why he states that after been discharged from acute and he went to [facility] aren't states therefore one month and 5 days and then he was discharged a few days ago to long-term at [facility] on Friday, however over the weekend he has more congestion, he has weak cough and needed frequent suctioning, patient was able to talk weekly his little confused but he can't communicate through gesture, he denies pain but he is tachypneic He has tracheostomy, PEG tube and try to colostomy. Admitted with-hypotension secondary to severe sepsis secondary to pneumonia, aspiration pneumonia, acute hypoxic respiratory failure, acute kidney injury secondary to ATN, elevated sodium, increased lactic acid, elevated troponin felt to be from tachycardia. Recent history of intraperitoneal hemorrhage status post laboratory with washout and ileostomy on 08/02/2020. Tracheostomy. C. diff ruled out. Today-ICU: Awake, following commands. Tube feeding at 85 mL an hour. tracheostomy secretions. Ileostomy functioning with light-colored yellow stool. Review of systems: Patient unable to talk Active Medications Acetaminophen (Acetaminophen Tab 325 Mg Tab) 650 mg PO Q6HR PRN PRN Reason: Mild Pain or Fever > 100.5 Last Admin: 10/11/20 14:29 Dose: 650 mg Documented by: Albuterol/Ipratropium (Ipratropium-Albuterol 3 Ml Neb) 3 ml INHALATION RT-QID WADE Last Admin: 10/11/20 15:34 Dose: 3 ml Documented by: Albuterol/Ipratropium (Ipratropium-Albuterol 3 Ml Neb) 3 ml INHALATION RT-Q2H PRN PRN Reason: Shortness Of Breath Or Wheezing Last Admin: 10/03/20 21:27 Dose: 3 ml Documented by: Aspirin (Aspirin 81 Mg) 81 mg PO DAILY [facility] Last Admin: 10/11/20 09:26 Dose: 81 mg Documented by: Atorvastatin Calcium (Atorvastatin 40 Mg Tab) 40 mg PEG/G-TUBE HS@2000 [facility] Last Admin: 10/10/20 19:46 Dose: 40 mg Documented by: Budesonide (Budesonide 1 Mg/2 Ml Nebu) 1 mg INHALATION RT-BID [facility] Last Admin: 10/11/20 08:48 Dose: 1 mg Documented by: Cholestyramine Resin (Cholestyramine (With Sugar) 4 Gm Packet) 4 gm PO BID@1000,1800 [facility] Last Admin: 10/11/20 17:40 Dose: 4 gm Documented by: Darbepoetin Alex (Darbepoetin Alex 40 Mcg/0.4 Ml Syringe) 40 mcg SQ Q7D [facility] Last Admin: 10/10/20 12:18 Dose: 40 mcg Documented by: Diphenoxylate HCl/Atropine (Diphenox-Atrop 2.5-0.025 Mg 1 Each Tab) 1 each PO Q6HR PRN PRN Reason: Diarrhea Famotidine (Famotidine 20 Mg Tab) 20 mg PO HS [facility] Last Admin: 10/10/20 19:46 Dose: 20 mg Documented by: Piperacillin Sod/Tazobactam (Sod 3.375 gm/ Sodium Chloride) 100 mls @ 25 mls/hr IVPB Q8H [facility] Last Admin: 10/11/20 12:49 Dose: 25 mls/hr Documented by: Lactated Ringer's (Lactated Ringers) 1,000 mls @ 75 mls/hr IV .[id number] [facility] Last Admin: 10/11/20 13:28 Dose: 75 mls/hr Documented by: Amiodarone HCl 450 mg/ (Dextrose/Water) 250 mls @ 16.667 mls/hr IV .Q15H [facility]; Protocol Stop: 10/12/20 03:49 Last Admin: 10/11/20 09:40 Dose: 0.5 mg/min, 16.667 mls/hr Documented by: Insulin Aspart (Insulin Aspart (Novolog) 100 Unit/Ml Vial) 0 unit SQ Q6H [facility]; Protocol Last Admin: 10/11/20 18:02 Dose: 1 unit Documented by: Levothyroxine Sodium (Levothyroxine 50 Mcg Tab) 50 mcg PEG/G-TUBE DAILY@0600 [facility] Last Admin: 10/10/20 05:53 Dose: 50 mcg Documented by: Melatonin (Melatonin 3 Mg Tablet) 3 mg PO HS PRN PRN Reason: Insomnia Last Admin: 10/09/20 21:49 Dose: 3 mg Documented by: Metoprolol Tartrate (Metoprolol Tartrate 25 Mg Tab) 25 mg PO TID [facility] Last Admin: 10/11/20 17:40 Dose: 25 mg Documented by: Midodrine (Midodrine 5 Mg Tab) 10 mg PO Q8HR [facility] Last Admin: 10/11/20 17:40 Dose: 10 mg Documented by: Miscellaneous Information (Potassium Replacement Protocol 1 Each Misc) 1 each MISCELLANE DAILY PRN; Protocol PRN Reason: Per Protocol Naloxone HCl (Naloxone 0.4 Mg/Ml 1 Ml Vial) 0.2 mg IV Q2M PRN PRN Reason: Opioid Reversal Ondansetron HCl (Ondansetron 4 Mg/2 Ml Vial) 4 mg IVP Q8HR PRN PRN Reason: Nausea And Vomiting Last Admin: 10/11/20 03:52 Dose: 4 mg Documented by: Quetiapine Fumarate (Quetiapine 25 Mg Tab) 25 mg PO HS [facility] Last Admin: 10/10/20 19:46 Dose: 25 mg Documented by: Sodium Bicarbonate (Sodium Bicarbonate Tab 650 Mg Tab) 650 mg PO BID [facility] Last Admin: 10/11/20 09:26 Dose: 650 mg Documented by: Tamsulosin HCl (Tamsulosin 0.4 Mg Cap.Er.24h) 0.4 mg PO PC-BRKFST [facility] Last Admin: 10/11/20 09:26 Dose: 0.4 mg Documented by: On examination: VITAL SIGNS: 97.6, 75, 24, 115/62, 95% on trach 8 on 28% GENERAL APPEARANCE: Laying in bed, awake, tired HEENT:Trach collar with shield EYES: Pupils equal. Conjunctiva normal. NECK: JVD not raised. Mass not palpable. RESPIRATORY: Respiratory effort increased Lungs decreased breath sounds and crackles. CARDIOVASCULAR: First and second sounds normal. No edema. ABDOMEN: Soft. Liver and spleen not palpable. Ileostomy with yellow stool . Dressing in place PSYCHIATRY: Alert and oriented x3. Mood and affect tired INVESTIGATIONS, reviewed in the clinical context: October 11: WBC 11.1 hemoglobin 9.3 platelets 253 potassium 3.8 creatinine 1.78 Family : WBC 8.9 hemoglobin 8.9 potassium 3.9 bun 63 creatinine 1.94 October 09: WBC 8.5 hemoglobin 9. She is 257 potassium 3.7 bun 67 creatinine 2.18 October 08: White count 7.9 hemoglobin 8.4 potassium 3.8 creatinine 2.53 October 07: White count 7 hemoglobin 8.2 platelets 271 potassium 3.6 creatinine 2.9 White count 7.1 hemoglobin 8.7 platelets 256 potassium 3.8 bicarbonate 20 bun 33 creatinine 3.17 Sputum culture-positive for Staphylococcus aureus MSSA, Klebsiella Pneumoniae Previous labs: White count 16.6 hemoglobin 9.9 platelets 584 bun 100 creatinine 3.18 Coronavirus PCR-not detected Renal ultrasound-normal bilateral renal ultrasound Assessment and plan: -Hypotensive shock -better. remains off norepinephrine IV , on midodrine- -Abdominal wound at surgical incision site, followed by general surgery with local dressing -History of ischemic small bowel with evidence of pneumatosis status post small bowel resection on 07/24/2020 -Ileostomy for intraperitoneal hemorrhage and small bowel ischemia status post exploratory laboratory or short of periportal cavity on 08/02/2020 -Coronary artery disease with bypass in July 2020, and Lopressor. Aspirin -Acute hypoxic respiratory failure secondary to pneumonia, continue with oxygen supplementation, currently with the trach collar, 28% -Anemia secondary to chronic kidney disease , follow H&H -Acute kidney injury secondary to ATN secondary to hypotension and hemodynamic instability - slow to respond. Creatinine 1.78 -Chronic kidney disease stage III the baseline creatinine of 1.2-1.5 secondary to nephrosclerosis -Paroxysmal atrial fibrillation with rapid ventricular rate on amiodarone by mouth, Lopressor, converted to sinus rhythm -Hypernatremia secondary to decreased oral water intake. Receiving free water- improved -Possible aspiration pneumonia, sputum positive for MSSA and Klebsiella pneumoniae., Causing sepsis On IV Zosyn -Stage II sacral pressure ulcer, right heel decub -Hypothyroidism, continue Synthroid -Moderate to severe COPD, on bronchodilators, inhaled steroids -Diabetes mellitus type 2, follow Accu-Cheks -Essential hypertension -Hyperlipidemia, continue Lipitor -BPH on Flomax -Enteral tube feeding at 65 mL an hour -DO NOT RESUSCITATE
[2020-10-11] MEDS: ATORVASTATIN 40 MG TAB PEG/G-TUBE SCH (20:28)
[2020-10-11] MEDS: MELATONIN 3 MG TABLET PO PRN (20:28)
[2020-10-11] MEDS: FAMOTIDINE 20 MG TAB PO SCH (20:29)
[2020-10-11] MEDS: QUEtiapine 25 MG TAB PO SCH (20:39)
--- NOTE | 2020-10-11 23:35 | PN ---
PROGRESS NOTE DATE OF SERVICE: 10/11/2020 REASON FOR FOLLOWUP: Pneumonia. INTERVAL HISTORY: The patient is currently afebrile. The patient is breathing comfortably. Denies having any chest pain. Did have some cough. No vomiting. No abdominal pain. PHYSICAL EXAMINATION: Blood pressure is 101/56, pulse of 69, temperature 96.8. He is 100% on trach collar. General description is an elderly male lying in bed in no distress. Respiratory system: Unlabored breathing. Clear to auscultation anteriorly. Heart: S1, S2. Regular rate and rhythm. ABDOMEN: Soft, no tenderness. LABS: Hemoglobin 9.3, white count of 11.1, BUN of 15, creatinine is 1.78. DIAGNOSTIC IMPRESSION AND PLAN: Patient admitted to the hospital with pneumonia. Sputum has been Klebsiella and MSSA. Patient is covered with Zosyn to continue while inpatient and transition to oral antibiotic on discharge. MMODL / IJN: [id number] /
[2020-10-12 00:21] LABS: Glucose,Whole Blood 153 mg/dL (75-99)
[2020-10-12] MEDS: MIDODRINE 5 MG TAB PO SCH ×4 (00:23→20:51)
[2020-10-12] MEDS: INSULIN ASPART (NovoLOG) 100 UNIT/ML VIAL SQ SCH ×4 (00:23→20:14)
[2020-10-12 03:59] LABS: Anisocytosis Slight; Basophils # (A) 0.1 k/uL (0-0.2); Basophils % (A) 1 %; Eosinophils # (A) 0.1 k/uL (0-0.7); Eosinophils % (A) 1 %; HCT 29.5 % (39.0-53.0); HGB 9.3 gm/dL (13.0-17.5); Hypochromasia Moderate; Lymphocytes # (A) 0.8 k/uL (1.0-4.8); Lymphocytes % (A) 7 %; MCH 28.4 pg (25.0-35.0); MCHC 31.6 g/dL (31.0-37.0); MCV 89.8 fL (80.0-100.0); Mean Platelet Volume 7.4; Monocytes # (A) 0.6 k/uL (0-1.0); Monocytes % (A) 5 %; Neutrophils # (A) 10.7 k/uL (1.3-7.7); Neutrophils % (A) 86 %; Platelet Count 259 k/uL (150-450); Poikilocytosis Slight; RBC 3.28 m/uL (4.30-5.90); RDW 18.3 % (11.5-15.5); WBC 12.4 k/uL (3.8-10.6)
[2020-10-12 04:36] LABS: Calcium 9.4 mg/dL (8.4-10.2); Potassium 3.8 mmol/L (3.5-5.1)
[2020-10-12] MEDS: LACTATED RINGERS 1,000 ML IV SCH ×2 (04:36→16:41)
[2020-10-12] MEDS: AMIODARONE 450 MG in DEXTROSE 5% IN WATER 250 ML IV SCH ×4 (04:36→23:00)
[2020-10-12] MEDS: PIPERACILLIN-TAZOBACTAM 3.375 GM in SODIUM CHLORIDE 0.9% 100 ML IVPB SCH ×3 (04:37→20:51)
[2020-10-12 05:40] LABS: Glucose,Whole Blood 154 mg/dL (75-99)
[2020-10-12] MEDS: LEVOTHYROXINE 50 MCG TAB PEG/G-TUBE SCH (05:40)
[2020-10-12] MEDS ORDERED: POTASSIUM BICARBONATE/CIT AC 20 MEQ TABLET.EFF NG-TUBE SCH (06:00)
--- NOTE | 2020-10-12 06:58 | XR ---
EXAMINATION TYPE: XR chest 1V portable DATE OF EXAM: 10/12/2020 HISTORY: Shortness of breath. COMPARISON: 10/11/2020 TECHNIQUE: Single view of the chest is submitted. FINDINGS: Tracheostomy tube is in place. Persistent left lower lobe infiltrate and/or effusion. Improving aeration right lower lobe. The heart is stable. Hilar and mediastinal structures are within normal limits. Degenerative changes are seen of the dorsal spine. IMPRESSION: 1. Persistent left lower lobe infiltrate and/or effusion. Improving aeration right lower lobe.
[2020-10-12] MEDS: IPRATROPIUM-ALBUTEROL 3 ML NEB INHALATION SCH ×4 (07:27→20:00)
[2020-10-12] MEDS: BUDESONIDE 1 MG/2 ML NEBU INHALATION SCH ×2 (07:27→20:00)
--- NOTE | 2020-10-12 08:52 | PN ---
PROGRESS NOTE Mr. Tinoco is a 80-year-old male with a history of coronary artery bypass grafting that was postoperatively complicated by atrial fibrillation as well as abdominal ischemia requiring surgery. He has a trach. He is on the trach collar. He also has an ileostomy in the PEG tube. He is sitting up in the chair. He has secretions to the trach. He had episode of atrial fibrillation. He denies any chest pain. No dizziness. He is feeling slightly better compared to yesterday. Hemodynamically, he is stable. He is not requiring pressors. His urine output has been good. He continues to be on aspirin once a day, Lipitor 40 mg daily, cholestyramine, metoprolol tartrate 25 mg 3 times a day, midodrine, sodium bicarb, Flomax, DuoNeb. PHYSICAL EXAMINATION: Blood pressure 118/80 with the heart in 70s. LUNGS: A few crackles at the bases. HEART: S1, S2 with a systolic murmur. No diastolic murmur. No rub. ABDOMEN: Soft with the ostomy in place, Positive bowel sounds. EXTREMITIES: No edema. LAB DATA: Lab data revealed a BUN and creatinine of 56 and 1.62, which continues to improve. Hemoglobin is 9.3. His white blood cell of is 12.4. His liver function tests from yesterday are normal. IMPRESSION: 1. Status post coronary artery bypass grafting with a complicated postoperative course. 2. Paroxysmal atrial fibrillation. 3. Pneumonia. 4. Anemia. 5. Chronic kidney disease, improving. 6. Status post tracheostomy. 7. Ileostomy. RECOMMENDATION: I will put him on oral amiodarone, stop the IV amiodarone. I will re-initiate the anticoagulation. His hemoglobin has been stable. We will continue increasing his level of activity and depending on his progress, further recommendation will be made. MMODL / IJN: [id number] /
[2020-10-12] MEDS ORDERED: AMIODARONE 200 MG TAB PO SCH (09:00)
[2020-10-12] MEDS: APIXABAN 2.5 MG TABLET PO SCH ×2 (09:21→20:50)
[2020-10-12] MEDS: METOPROLOL TARTRATE 25 MG TAB PO SCH ×3 (09:21→20:50)
[2020-10-12] MEDS: ASPIRIN 81 MG PO SCH (09:21)
[2020-10-12] MEDS: SODIUM BICARBONATE TAB 650 MG TAB PO SCH (09:21)
[2020-10-12] MEDS: CHOLESTYRAMINE (WITH SUGAR) 4 GM PACKET PO SCH ×2 (09:25→16:58)
[2020-10-12] MEDS: TAMSULOSIN 0.4 MG CAP.ER.24H PO SCH (09:25)
--- NOTE | 2020-10-12 09:39 | P.PN ---
Subjective Progress Note Date: 10/12/20 Principal diagnosis: Acute on chronic hypoxic respiratory failure secondary to left lower lobe pneumonia and sepsis This is a 80-year-old white male familiar to my service, in July 2020, patient underwent elective coronary artery bypass grafting. He had a very complicated postoperative course, patient required multiple abdominal surgeries, multiple intubations, extubations, and the intubations, patient was a failure to wean, and he had multiple abdominal surgeries during his stay. Patient underwent tracheostomy, PEG tube placement, and we were able to transfer the pa maty to an extended care facility. He was at the extended care facility until about a week ago, his tracheostomy was capped, and he was transferred to [facility]. Patient has been noticing increased cough, increased shortness of breath, and significant purulent secretions from the tracheostomy tube when uncapped. O2 saturation was dipping down into the 50s and in the ER he had a saturation of 86% on 15 L high flow nasal cannula. Patient was also noted to have leukocytosis, hemoglobin was low, his troponin was slightly elevated, blood pressure was noted to be marginally low, patient was admitted initially to the cardiac floor, however supposedly he was noted to have blood pressure in the 70s systolic. Patient did receive multiple fluid boluses in the ER over 3 L were given, and we were notified about the patient on the floor having low blood pressure, I recommended transferred to the ICU planning to start the patient on norepinephrine. However over the last 12 hours in the ICU, his blood pressure has been stable patient did not require placement on any pressors. His beta blockers had been on hold because of low blood pressure, and he is maintained on amiodarone. His pro-calcitonin level was noted to be 2.60. And his chest x-ray showed left lower lobe atelectasis, suspect left lower lobe pneumonia. And he had small pleural effusions noted more so than right. Going back to his previous hospital admission, patient did have left lower lobe pneumonia and he did have left pleural effusion requiring thoracentesis once or twice. Cultures previously from the sputum were positive for Pseudomonas fluorescence/putida, sensitive to Zosyn and Levaquin and meropenem. Also sensitive to cefepime. Considering the patient's presentation with hypotension, shortness of breath, cough, abnormal chest x-ray, hypoxia, and considering his recent clinical history, we were asked to see him on consultation Patient was reevaluated today on 10/04/2020, patient remains in the ICU, he is on trach collar a 55%, patient went into atrial fibrillation with RVR yesterday, and he went on amiodarone at 1 mg/m, he also received 1 unit of packed RBCs for hemoglobin of 6.7, patient converted to sinus rhythm. Remains in sinus rhythm, patient is receiving tube feeds/Nepro at 65/65. He is also receiving free water. Chest x-ray is showing minimal improvement in the left lower lobe consolidation, clinically the patient is feeling better, he is empirically on antibiotics for healthcare acquired pneumonia/Zosyn. Previous sputum cultures were positive for Pseudomonas, hence his Zosyn was chosen as the drug of choice. CBC today showed WBC 7.2 hemoglobin 6.7, hence a unit of blood was given. Electrolytes showed low sodium but improving today is 148 from 150 to yesterday. BUN is 108 creatinine 3.4 to about the same as yesterday. Reevaluated today on 10/05/2020, patient remains in the ICU, remains on 55% trach collar. Off norepinephrine, IV fluids at KVO, tolerating enteral feeding via PEG tube, patient continues to have significant amount of tracheal secretions, he is now on Zosyn and vancomycin, as well as Zyvox. His cultures from the sputum are showing MSSA, hence we will discontinue vancomycin, keep him on Zosyn, and infectious disease to address his Zyvox. Patient may not even require Zyvox considering the culture is positive for MSSA. Chest x-ray is showing bilateral pleural effusions/small, renal functioning is slightly improved over the last 24 hours. Patient was switched to oral amiodarone, and he seems to be doing quite well, in sinus rhythm. Reevaluated today on 10/06/2020, patient remains in the ICU, remains on trach collar at 28%, sputum came back positive for Klebsiella and MSSA. Patient is on Zosyn and Zyvox. Remains on a small dose of norepinephrine at 0.01 mcg/kg/m, remains on enteral feeding/Nepro at 65 ML per hour, also receiving Questran. Patient continues to have significant output from his ileostomy. Patient is feeling better overall compared to how he felt on presentation. CBC today is relatively normal WBC count is 7.1 hemoglobin is 8.7, electrolytes are normal BUN is 93 creatinine is 3.17, improving over the last couple of days. Blood cultures remain negative. Again his sputum cultures are positive for MSSA and Klebsiella pneumonia. Reevaluated today on 10/07/2020, patient remains in the ICU, remains on trach collar at 28%, receiving antibiotics for his Klebsiella and MSSA pneumonia. Patient is only on Zosyn, and his Zyvox was discontinued since it was initially started by infectious disease for possible MRSA. Patient is requiring intermittently small doses of norepinephrine, clinically however the patient is much better compared to how he felt when he came in. He is in no distress, this morning he is off norepinephrine, but he didn't require norepinephrine last night, hence I will not transfer the patient out of the ICU yet. Chest x-ray continues to show by basilar atelectasis, possible left lower lobe consolidation which is chronic. Secretions from the tracheostomy are less and less. Renal profile is improving, creatinine is down to 2.9. CBC is normal. Electrolytes are normal. On 10/08/2020 the patient is being seen in follow-up in the intensive unit. His , comfortable and currently is on a trach collar with an FiO2 of 28%. The chest x-ray shows small bilateral pleural effusions and there is adequate expansion of both lungs and a orotracheal tube is in a good location. Note that he had MSSA and Klebsiella in his sputum and patient is currently on IV antibiotics and he is receiving IV Zosyn. Patient continues to have copious amount of secretions through his tracheostomy tube and the patient has a #8 [address] tracheostomy tube in place and he is requiring suctioning every 2 hours at least. He still has a lot of rhonchi He is currently off pressors. He is in normal sinus rhythm. He has also PEG tube for enteral feeding and nutritional support. PEG tube is in place and the patient is on Nepro at the rate of 75 mL an hour. He continues to have output through his ileostomy bag. The patient has significant amount of output through his ileostomy was in the order of every 12 hours. No abdominal distention. No signs of any respiratory distress. The creatinine is improving and is currently down to 2.5 and the patient's hemoglobin is at 8.4. No fever. No other issues overnight. Villafana cath is also in place. He is able to communicate. However he is still profoundly weak/in lower extremities. He is able to raise his arms against gravity. On 10/09/2020 patient seen in follow-up in the intensive care unit. Patient is awake and alert, is following commands, moving all 4 extremities, no signs of any respiratory distress, he is breathing comfortably, on 28% trach collar. His pulse ox is 98%. Still having some secretions from his tracheostomy, related he is on Zosyn for antibiotic coverage. Remains on nebulized bronchodilators, hemodynamically patient has been stable. No requiring any vasopressor support for last 48 hours. No acute events overnight. His sputum cultures were positive for MSSA and Klebsiella pneumonia. Today's labs have been reviewed, normal white count at 8.5, hemoglobin is 9.0, sodium is 137, potassium is 3.7, chloride is 110, B1 is 67, creatinine is 2.18. Patient has been nothing by mouth and has been receiving nutrition in the form of Nepro at 65 with a goal of 65. Patient has had significant diarrhea, liquid yellow output from his ileostomy. No complaints of chest pain. He is in sinus mechanism with a controlled rate. Chest x-ray shows basilar infiltrates and atelectasis with small effusions. On 10/10/2020 patient seen in follow-up in the intensive care unit. He is awake and alert, oriented 3, his calm and cooperative, he denies any acute distress, he still has significant amount of secretions that are being suctioned from the tracheostomy tube, he remains on 20% trach collar. He remains on antibiotics, his sputum cultures were positive for MSSA and Klebsiella pneumonia, he is on Zosyn, he has had no fever or chills. Lung sounds reveal minimal rhonchi, less congested and wheezy on today's exam compared a few days ago. Patient is tolerating tube feedings, he remains strict nothing by mouth, he is on Nepro at a rate of 65 ML per hour with a goal of 65 with 125 ML free water flushes every 3 hours. Abdomen is soft, ileostomy is still producing copious amount of liquid yellow diarrhea, which will be sent for C. diff. There has been a total of 2.5 L in stool output in the last 24 hours. Today's labs have been reviewed, white blood cell count is 8.9, hemoglobin is 8.9, CO2 is 18, sodium is 138, potassium is 3.9, chloride is 110, renal profile is improving despite the diarrhea, with BUN of 63, creatinine is 1.94. Patient is working with physical therapy and yesterday he apparently was up in the chair with assistance, tolerated activity well. On 10/11/2020 patient seen in follow-up in intensive care unit, she remains on 28% trach collar, the pulse ox of 97%, vital signs have been stable, his been afebrile, he did have a run of A. fib with RVR this morning and was restarted on amiodarone drip and was given 150 mg bolus of amiodarone. He is currently back in sinus mechanism with a controlled rate, receiving hydration with LR at 75 ML per hour, he continues to have large volume diarrhea out of his ileostomy, he had to 3.3 L in stool output in last 24 hours, C. diff was negative. tube feedings have been switched to vital AF currently running at 75 ML per hour, patient is getting free water flushes of 125 ML every 3 hours. Yesterday we placed him on lactated Ringer's at rate of 75 ML per hour, he is receiving or sodium bicarbonate tablets, his bicarbonate concentration at today's labs has improved and is up to 23. The renal profile slightly improved. Continues on Zosyn for MSSA and Klebsiella pneumonia in sputum cultures, blood cultures have been negative, patient has been afebrile, blood pressure stable, the patient continues on midodrine. Patient is awake and alert, following commands, responding appropriately, appears tired on today's exam. Denies any acute distress, his been working with physical therapy, he stood at the bedside, he is too weak to walk. Abdomen is soft, mid abdominal incision is covered with a dressing. On 10/12/2020 patient seen in follow-up in the intensive care unit. Patient is up in the recliner, breathing comfortably, she is on 20% trach collar, lung sounds are less congested and rhonchorous on today's exam. He is awake and oriented 3, denies any distress, he is currently on lactated Ringer's at a rate of 75 ML per hour, no recurrence of A. fib RVR overnight, his amiodarone is infusing at 0.5 mg/m and he will be transitioned to oral amiodarone today per cardiology, he remained in sinus rhythm. Vital signs are stable. He is on tube feedings of vital AF a rate of 90 with a goal of 90 with 125 ML free water flushes every 3 hours. His diarrhea output has decreased some, patient had 2 L in the liquid ostomy is stool output in the last 24 hours, he is on Lomotil when necessary. No abdominal pain. no nausea or vomiting no nausea or vomiting. The secretions out of the tracheostomy tube have decreased. Patient has been nothing by mouth, she would like to have a swallow evaluation to be evaluated for oral feedings. Today's chest x-ray has been reviewed showing left lower lobe infiltrate and/or pleural effusion, and improving aeration in the right lower lobe. Today's labs have been reviewed, showing white blood cell count of 12.4, hemoglobin of 9.3, electrolytes within normal limits, renal profile shows slight improvement in creatinine, down to 1.6 today. Objective - Vital Signs Vital signs: Vital Signs Temp 97.3 F L 10/12/20 04:00 Pulse 82 10/12/20 07:49 Resp 27 H 10/12/20 07:00 BP 119/87 10/12/20 07:00 Pulse Ox 98 10/12/20 07:00 Intake & Output 10/11/20 10/12/20 10/12/20 18:59 06:59 18:59 Intake Total 2370 1720 75 Output Total 1400 1550 200 Balance 970 170 -125 Weight 75.5 kg Intake: IV 900 900 75 Lactated Ringers 1,000 ml 900 900 75 @ 75 mls/hr IV .[id number] WADE Rx#:[id number] Intake, IV Titration 250 Amount Amiodarone 450 mg In 250 Dextrose 5% in Water 250 ml @ 0.5 MG/MIN 16.667 mls/hr IV .Q15H WADE Rx#: [id number] Tube Feeding 970 445 Other 500 125 Output: Urine 600 300 0 Stool 800 1250 200 Other: Voiding Method Urinal Urinal # Voids 0 0 0 - Exam GENERAL EXAM: Alert, very pleasant, 80-year-old white male on the 28% trach collar on 99%, comfortable in no apparent distress. HEAD: Normocephalic/atraumatic. EYES: Normal reaction of pupils, equal size. Conjunctiva pink, sclera white. NOSE: Clear with pink turbinates. THROAT: No erythema or exudates. NECK: No masses, no JVD, no thyroid enlargement, no adenopathy. Midline tracheostomy in place, CHEST: No chest wall deformity. Symmetrical expansion. LUNGS: Equal air entry with no crackles, wheeze, rhonchi or dullness. CVS: Regular rate and rhythm, normal S1 and S2, no gallops, no murmurs, no rubs ABDOMEN: Soft, nontender. No hepatosplenomegaly, normal bowel sounds, no guarding or rigidity. Midabdominal incision covered with dressing, is healing by secondary intention, sutures are in place, bed is 100% granulated wound bed. Right upper quadrant ileostomy in place connected to a Villafana drainage bag patient is having liquid yellow stool output EXTREMITIES: No clubbing, no edema, no cyanosis, 2+ pulses and upper and lower extremities. MUSCULOSKELETAL: Muscle strength and tone normal. SPINE: No scoliosis or deformity SKIN: No rashes CENTRAL NERVOUS SYSTEM: Alert and oriented -3. No focal deficits, tone is normal in all 4 extremities. PSYCHIATRIC: Alert and oriented -3. Appropriate affect. Intact judgment and insight. - Labs CBC & Chem 7: 10/12/20 03:45 10/12/20 03:45 Labs: Abnormal Lab Results - Last 24 Hours (Table) 10/11/20 10/11/20 10/11/20 Range/Units 11:42 13:19 17:48 WBC (3.8-10.6) k/uL RBC (4.30-5.90) m/uL Hgb (13.0-17.5) gm/dL Hct (39.0-53.0) % RDW (11.5-15.5) % Neutrophils # (1.3-7.7) k/uL Lymphocytes # (1.0-4.8) k/uL BUN (9-20) mg/dL Creatinine (0.66-1.25) mg/dL Glucose (74-99) mg/dL POC Glucose (mg/dL) 158 H 140 H 147 H (75-99) mg/dL 10/12/20 10/12/20 10/12/20 Range/Units 00:20 03:45 03:45 WBC 12.4 H (3.8-10.6) k/uL RBC 3.28 L (4.30-5.90) m/uL Hgb 9.3 L (13.0-17.5) gm/dL Hct 29.5 L (39.0-53.0) % RDW 18.3 H (11.5-15.5) % Neutrophils # 10.7 H (1.3-7.7) k/uL Lymphocytes # 0.8 L (1.0-4.8) k/uL BUN 56 H (9-20) mg/dL Creatinine 1.62 H (0.66-1.25) mg/dL Glucose 136 H (74-99) mg/dL POC Glucose (mg/dL) 153 H (75-99) mg/dL 10/12/20 Range/Units 05:37 WBC (3.8-10.6) k/uL RBC (4.30-5.90) m/uL Hgb (13.0-17.5) gm/dL Hct (39.0-53.0) % RDW (11.5-15.5) % Neutrophils # (1.3-7.7) k/uL Lymphocytes # (1.0-4.8) k/uL BUN (9-20) mg/dL Creatinine (0.66-1.25) mg/dL Glucose (74-99) mg/dL POC Glucose (mg/dL) 154 H (75-99) mg/dL Assessment and Plan Plan: Assessment: 1 bilateral lower lobe pneumonia with sepsis. The chest x-ray shows improvement in the lower lobe pulmonary infiltrates and there are still some infiltration and small effusions bilaterally. He remains on IV Zosyn. 2 Acute on chronic hypoxic respiratory failure secondary to pneumonia and unde rlying COPD, currently on a 28% trach collar and the patient required tracheostomy following a prolonged intubation mechanical ventilation post cardiac surgery. 3 bilateral lower lobe pneumonia, secondary to MSSA, and Klebsiella pneumonia (cultured in the sputum) 4 Sepsis secondary to pneumonia, currently off pressors 5 Acute on chronic kidney injury secondary to sepsis, , improving 6 Moderate-severe COPD. 7 History of triple-vessel coronary artery disease, bypass surgery on 07/18/2020 with multiple postoperative complications 8 History of tracheostomy mostly because of failure to wean. The patient has a #8 Shiley tracheostomy tube in place 9 Benign essential hypertension. 10 Type 2 diabetes. 11 Dyslipidemia. 12 Chronic atrial fibrillation, on amiodarone and on anticoagulation therapy 13 History of hypothyroidism. 14 History of ileostomy on 08/02/2020. 15 Chronic anemia 16 generalized motor weakness and debility seconds above-mentioned comorbidities 17 large volume diarrhea, out of the ileostomy, C. diff has been ruled out Plan: Continue breathing treatments, antibiotics per ID service, IV hydration, free water flushes, today's labs and chest x-rays have been noted, continue physical therapy, continue GI and DVT prophylaxis, vital signs have been stable, no fever . Tracheal secretions have decreased somewhat in amount, we will have the patient evaluated by speech therapy and possible modified barium swallow today to reevaluate his swallowing ability. Continue tube feedings. Continue to monitor in the intensive care unit. I performed a history & physical examination of the patient and discussed their management with my nurse practitioner, Cheli Kendrick. I reviewed the nurse practitioner's note and agree with the documented findings and plan of care. Lung sounds are positive for diminished breath sounds The findings and the impression was discussed with the patient. I attest to the documentation by the nurse practitioner. Time with Patient: Less than 30
--- NOTE | 2020-10-12 11:33 | P.PN ---
Subjective Progress Note Date: 10/12/20 CHIEF COMPLAINT: Respiratory distress HISTORY OF PRESENT ILLNESS: Patient is being followed in regards to his abdominal wound at incision site. Patient remains in the ICU. He is awake. He denies any abdominal pain. Patient is sitting up at bedside chair comfortably. Patient is still having a lot of output through his ileostomy. Output today was about 1.4 L. This is still high but less than previous days. Tube feedings changed to vital 1.2. Patient's placed back on oral amiodarone for his A. fib and cardiology restarted Eliquis. He is scheduled for modified barium swallow today. Patient is afebrile. Trach collaring 100%. WBC up at 12.4 hemoglobin 9.3 creatinine 1.62 PHYSICAL EXAM: VITAL SIGNS: Reviewed. GENERAL: Well-developed in no acute distress. HEENT: No sclera icterus. Extraocular movements grossly intact. Moist buccal mucosa. Head is atraumatic, normocephalic. ABDOMEN: Soft. Nondistended. Nontender. Dressing clean dry and intact. Patient has a yellowish liquidy stool coming through the ileostomy. NEUROLOGIC: Alert and oriented. Cranial nerves II through XII grossly intact. ASSESSMENT: 1. Abdominal wound at surgical incision site. 2. History of ischemic small bowel with evidence of pneumatosis status post small bowel resection on 07/24/2020. 3. History of intraperitoneal hemorrhage and small bowel ischemia status post exploratory laparotomy, washout of peritoneal cavity and ileostomy with small bowel resection on 08/02/2020 4. History of CABG in July 2020 5. Acute hypoxic respiratory failure secondary to pneumonia 6. Sepsis secondary to pneumonia 7. Acute kidney injury 8. chronic Anemia: With known chronic kidney disease and iron deficiency. He did require blood transfusion during this admission PLAN: -Recommend ileostomy reversal when patient is medically stable -Continue wound care with Aquacel dressing -Continue supportive care -Continue ICU management -Continue antibiotics -Dietitian changing tube feedings to Vital 1.2 to help with increased ileostomy output -Continue IV fluids -We will change Lomotil test scheduled dosing and continue Questran Physician Full Time Staff Interpreter note has been reviewed by physician. Signing provider agrees with the documented findings, assessment, and plan of care. Objective - Vital Signs Vital signs: Vital Signs Temp 97.3 F L 10/12/20 04:00 Pulse 72 10/12/20 10:00 Resp 29 H 10/12/20 10:00 BP 124/66 10/12/20 10:00 Pulse Ox 100 10/12/20 10:00 Intake & Output 10/11/20 10/12/20 10/12/20 18:59 06:59 18:59 Intake Total 2370 1720 605 Output Total 1400 1550 325 Balance 970 170 280 Weight 75.5 kg Intake: IV 900 900 300 Lactated Ringers 1,000 ml 900 900 300 @ 75 mls/hr IV .[id number] WADE Rx#:[id number] Intake, IV Titration 250 Amount Amiodarone 450 mg In 250 Dextrose 5% in Water 250 ml @ 0.5 MG/MIN 16.667 mls/hr IV .Q15H WADE Rx#: [id number] Tube Feeding 970 445 180 Other 500 125 125 Output: Urine 600 300 0 Stool 800 1250 325 Other: Voiding Method Urinal Urinal Urinal # Voids 0 0 0 - Labs CBC & Chem 7: 10/12/20 03:45 10/12/20 03:45 Labs: Abnormal Lab Results - Last 24 Hours (Table) 10/11/20 10/11/20 10/11/20 Range/Units 11:42 13:19 17:48 WBC (3.8-10.6) k/uL RBC (4.30-5.90) m/uL Hgb (13.0-17.5) gm/dL Hct (39.0-53.0) % RDW (11.5-15.5) % Neutrophils # (1.3-7.7) k/uL Lymphocytes # (1.0-4.8) k/uL BUN (9-20) mg/dL Creatinine (0.66-1.25) mg/dL Glucose (74-99) mg/dL POC Glucose (mg/dL) 158 H 140 H 147 H (75-99) mg/dL 10/12/20 10/12/20 10/12/20 Range/Units 00:20 03:45 03:45 WBC 12.4 H (3.8-10.6) k/uL RBC 3.28 L (4.30-5.90) m/uL Hgb 9.3 L (13.0-17.5) gm/dL Hct 29.5 L (39.0-53.0) % RDW 18.3 H (11.5-15.5) % Neutrophils # 10.7 H (1.3-7.7) k/uL Lymphocytes # 0.8 L (1.0-4.8) k/uL BUN 56 H (9-20) mg/dL Creatinine 1.62 H (0.66-1.25) mg/dL Glucose 136 H (74-99) mg/dL POC Glucose (mg/dL) 153 H (75-99) mg/dL 10/12/20 Range/Units 05:37 WBC (3.8-10.6) k/uL RBC (4.30-5.90) m/uL Hgb (13.0-17.5) gm/dL Hct (39.0-53.0) % RDW (11.5-15.5) % Neutrophils # (1.3-7.7) k/uL Lymphocytes # (1.0-4.8) k/uL BUN (9-20) mg/dL Creatinine (0.66-1.25) mg/dL Glucose (74-99) mg/dL POC Glucose (mg/dL) 154 H (75-99) mg/dL
[2020-10-12 12:07] LABS: Glucose,Whole Blood 134 mg/dL (75-99)
[2020-10-12] MEDS ORDERED: AMIODARONE 200 MG TAB PO STA (14:13)
[2020-10-12] MEDS ORDERED: METOPROLOL TARTRATE 25 MG TAB PO STA (14:14)
[2020-10-12] MEDS: DIPHENOX-ATROP 2.5-0.025 MG 1 EACH TAB PO SCH ×2 (14:23→20:51)
[2020-10-12] MEDS: ACETAMINOPHEN TAB 325 MG TAB PO PRN ×2 (14:23→20:50)
--- NOTE | 2020-10-12 14:58 | PN ---
PROGRESS NOTE Patient is seen for followup for acute kidney injury. His renal function continues to improve. This morning patient is sitting up in a bedside chair. He is comfortable. Denies any significant complaints. PHYSICAL EXAMINATION: Blood pressure was 121/65, heart rate 81 per minute. Patient is afebrile. EXAMINATION OF THE HEART: S1, S2. EXAMINATION OF THE LUNGS: Decreased breath sounds at bases. He has a lot of upper airway secretions for which he is suctioning them out on his own. Examination of lower extremities shows no significant edema. Abdomen is soft, nontender. Incision is dressed. LABS: Labs show sodium of 140, potassium 3.8, chloride 104, CO2 is 28, BUN 56, creatinine 1.62, hemoglobin 9.3 g/dL. ASSESSMENT: 1. Acute kidney injury, acute tubular necrosis, currently improving. 2. Sepsis, currently improved. 3. Pneumonia with sputum culture growing Staph aureus, Klebsiella pneumoniae. 4. Status post explorative laparotomy in July for ischemic bowel, status post bowel resection and ileostomy. 5. Abdominal wound infection. 6. Hypernatremia, now resolved. PLAN: Discontinue the sodium bicarb. Repeat labs in a.m. MMODL / IJN: [id number] /
[2020-10-12] MEDS ORDERED: DEXTROSE 5% IN WATER 250 ML with AMIODARONE 300 MG IV ONE (16:10)
[2020-10-12] MEDS ORDERED: DEXTROSE 5% IN WATER 100 ML with AMIODARONE 150 MG IV ONE ×2 (16:10→16:50)
[2020-10-12] MEDS: OCTREOTIDE 100 MCG/ML INJ SQ SCH (16:57)
[2020-10-12] MEDS ORDERED: AMIODARONE 360 MG in DEXTROSE 5% IN WATER 200 ML IV ONE ×2 (17:00)
[2020-10-12] MEDS: MELATONIN 3 MG TABLET PO PRN (20:50)
[2020-10-12] MEDS: ATORVASTATIN 40 MG TAB PEG/G-TUBE SCH (20:51)
[2020-10-12] MEDS: FAMOTIDINE 20 MG TAB PO SCH (20:51)
[2020-10-12] MEDS: QUEtiapine 25 MG TAB PO SCH (20:52)
--- NOTE | 2020-10-12 22:26 | P.PN ---
Progress Note - Text Progress Note Date: 10/12/20 Interval history: This is a pleasant 80 years old male with past medical history of coronary art fuad disease, COPD, diabetes mellitus, hyperlipidemia, hypertension, hypothyroidism, coronary artery disease status post cardiac cath and stent placement. He recently underwent double coronary artery bypass grafting for his triple-vessel coronary artery disease. He was in the hospital from 07/18/20- 08/25/2020 pt has tracheostomhy and PEG tube , Information were obtained with the help of at bedside, he presents with confusion, and a lot of secretion Why he states that after been discharged from acute and he went to [facility] aren't states therefore one month and 5 days and then he was discharged a few days ago to senior living at [facility] on Friday, however over the weekend he has more congestion, he has weak cough and needed frequent suctioning, patient was able to talk weekly his little confused but he can't communicate through gesture, he denies pain but he is tachypneic He has tracheostomy, PEG tube and try to colostomy. Admitted with-hypotension secondary to severe sepsis secondary to pneumonia, aspiration pneumonia, acute hypoxic respiratory failure, acute kidney injury secondary to ATN, elevated sodium, increased lactic acid, elevated troponin felt to be from tachycardia. Recent history of intraperitoneal hemorrhage status post laboratory with washout and ileostomy on 08/02/2020. Tracheostomy. C. diff ruled out. Today-ICU: Still having tracheostomy secretions. Again went back into A. fib with a rapid ventricular rate. Put back on IV amiodarone. Awake, able to come indicate Review of systems: Patient unable to talk Active Medications Acetaminophen (Acetaminophen Tab 325 Mg Tab) 650 mg PO Q6HR PRN PRN Reason: Mild Pain or Fever > 100.5 Last Admin: 10/12/20 20:50 Dose: 650 mg Documented by: Albuterol/Ipratropium (Ipratropium-Albuterol 3 Ml Neb) 3 ml INHALATION RT-QID WADE Last Admin: 10/12/20 20:00 Dose: 3 ml Documented by: Albuterol/Ipratropium (Ipratropium-Albuterol 3 Ml Neb) 3 ml INHALATION RT-Q2H PRN PRN Reason: Shortness Of Breath Or Wheezing Last Admin: 10/03/20 21:27 Dose: 3 ml Documented by: Apixaban (Apixaban 2.5 Mg Tablet) 2.5 mg PO BID [facility] Last Admin: 10/12/20 20:50 Dose: 2.5 mg Documented by: Aspirin (Aspirin 81 Mg) 81 mg PO DAILY [facility] Last Admin: 10/12/20 09:21 Dose: 81 mg Documented by: Atorvastatin Calcium (Atorvastatin 40 Mg Tab) 40 mg PEG/G-TUBE HS@2000 [facility] Last Admin: 10/12/20 20:51 Dose: 40 mg Documented by: Budesonide (Budesonide 1 Mg/2 Ml Nebu) 1 mg INHALATION RT-BID [facility] Last Admin: 10/12/20 20:00 Dose: 1 mg Documented by: Cholestyramine Resin (Cholestyramine (With Sugar) 4 Gm Packet) 4 gm PO BID@1000,1800 [facility] Last Admin: 10/12/20 16:58 Dose: 4 gm Documented by: Darbepoetin Alex (Darbepoetin Alex 40 Mcg/0.4 Ml Syringe) 40 mcg SQ Q7D [facility] Last Admin: 10/10/20 12:18 Dose: 40 mcg Documented by: Diphenoxylate HCl/Atropine (Diphenox-Atrop 2.5-0.025 Mg 1 Each Tab) 1 each PO Q6HR [facility] Last Admin: 10/12/20 20:51 Dose: 1 each Documented by: Famotidine (Famotidine 20 Mg Tab) 20 mg PO HS [facility] Last Admin: 10/12/20 20:51 Dose: 20 mg Documented by: Piperacillin Sod/Tazobactam (Sod 3.375 gm/ Sodium Chloride) 100 mls @ 25 mls/hr IVPB Q8H [facility] Last Admin: 10/12/20 20:51 Dose: 25 mls/hr Documented by: Lactated Ringer's (Lactated Ringers) 1,000 mls @ 75 mls/hr IV .[id number] [facility] Last Admin: 10/12/20 16:41 Dose: Not Given Documented by: Amiodarone HCl 360 mg/ (Dextrose/Water) 200 mls @ 33.333 mls/hr IV .Q6H ONE; Protocol Stop: 10/12/20 22:59 Last Admin: 10/12/20 16:34 Dose: 1 mg/min, 33.333 mls/hr Documented by: Amiodarone HCl 450 mg/ (Dextrose/Water) 250 mls @ 16.667 mls/hr IV .Q15H [facility]; Protocol Stop: 10/13/20 16:59 Insulin Aspart (Insulin Aspart (Novolog) 100 Unit/Ml Vial) 0 unit SQ Q6H [facility]; P rotocol Last Admin: 10/12/20 20:14 Dose: Not Given Documented by: Levothyroxine Sodium (Levothyroxine 50 Mcg Tab) 50 mcg PEG/G-TUBE DAILY@0600 [facility] Last Admin: 10/12/20 05:40 Dose: 50 mcg Documented by: Melatonin (Melatonin 3 Mg Tablet) 3 mg PO HS PRN PRN Reason: Insomnia Last Admin: 10/12/20 20:50 Dose: 3 mg Documented by: Metoprolol Tartrate (Metoprolol Tartrate 25 Mg Tab) 25 mg PO TID [facility] Last Admin: 10/12/20 20:50 Dose: 25 mg Documented by: Midodrine (Midodrine 5 Mg Tab) 10 mg PO Q8HR [facility] Last Admin: 10/12/20 20:51 Dose: 10 mg Documented by: Miscellaneous Information (Potassium Replacement Protocol 1 Each Misc) 1 each MISCELLANE DAILY PRN; Protocol PRN Reason: Per Protocol Naloxone HCl (Naloxone 0.4 Mg/Ml 1 Ml Vial) 0.2 mg IV Q2M PRN PRN Reason: Opioid Reversal Octreotide Acetate (Octreotide 100 Mcg/Ml Inj) 100 mcg SQ Q8HR [facility] Last Admin: 10/12/20 16:57 Dose: 100 mcg Documented by: Ondansetron HCl (Ondansetron 4 Mg/2 Ml Vial) 4 mg IVP Q8HR PRN PRN Reason: Nausea And Vomiting Last Admin: 10/11/20 03:52 Dose: 4 mg Documented by: Quetiapine Fumarate (Quetiapine 25 Mg Tab) 25 mg PO HS [facility] Last Admin: 10/12/20 20:52 Dose: 25 mg Documented by: Tamsulosin HCl (Tamsulosin 0.4 Mg Cap.Er.24h) 0.4 mg PO PC-BRKFST [facility] Last Admin: 10/12/20 09:25 Dose: 0.4 mg Documented by: On examination: VITAL SIGNS: 98.1, 77, 27, 95/59, 95% on trach collar 28% FiO2 GENERAL APPEARANCE: Laying in bed, awake, tired HEENT:Trach collar with shield EYES: Pupils equal. Conjunctiva normal. NECK: JVD not raised. Mass not palpable. RESPIRATORY: Respiratory effort increased Lungs decreased breath sounds CARDIOVASCULAR: First and second sounds normal. No edema. ABDOMEN: Soft. Liver and spleen not palpable. Ileostomy with yellow stool . Dressing in place PSYCHIATRY: Alert and oriented x3. Mood and affect tired INVESTIGATIONS, reviewed in the clinical context: October 12: WBC 12.4 hemoglobin 9.3 potassium 3.8 creatinine 1.6 to October 11: WBC 11.1 hemoglobin 9.3 platelets 253 potassium 3.8 creatinine 1.78 Family : WBC 8.9 hemoglobin 8.9 potassium 3.9 bun 63 creatinine 1.94 October 09: WBC 8.5 hemoglobin 9. She is 257 potassium 3.7 bun 67 creatinine 2.18 October 08: White count 7.9 hemoglobin 8.4 potassium 3.8 creatinine 2.53 October 07: White count 7 hemoglobin 8.2 platelets 271 potassium 3.6 creatinine 2.9 White count 7.1 hemoglobin 8.7 platelets 256 potassium 3.8 bicarbonate 20 bun 33 creatinine 3.17 Sputum culture-positive for Staphylococcus aureus MSSA, Klebsiella Pneumoniae Previous labs: White count 16.6 hemoglobin 9.9 platelets 584 bun 100 creatinine 3.18 Coronavirus PCR-not detected Renal ultrasound-normal bilateral renal ultrasound Assessment and plan: -Hypotensive shock -better. remains off norepinephrine IV , on midodrine- -Abdominal wound at surgical incision site, followed by general surgery with local dressing -History of ischemic small bowel with evidence of pneumatosis status post small bowel resection on 07/24/2020 -Ileostomy for intraperitoneal hemorrhage and small bowel ischemia status post exploratory laboratory or short of periportal cavity on 08/02/2020 -Coronary artery disease with bypass in July 2020, and Lopressor. Aspirin -Acute hypoxic respiratory failure secondary to pneumonia, continue with oxygen supplementation, currently with the trach collar, 28% -Anemia secondary to chronic kidney disease , follow H&H -Acute kidney injury secondary to ATN secondary to hypotension and hemodynamic instability - slow to respond. Creatinine 1.6 to -Chronic kidney disease stage III the baseline creatinine of 1.2-1.5 secondary to nephrosclerosis -Paroxysmal atrial fibrillation with rapid ventricular rate on amiodarone by mouth, Lopressor, converted to sinus rhythm. Patient has been in and out of rapid A. fib. -Hypernatremia secondary to decreased oral water intake. Receiving free water- improved -Possible aspiration pneumonia, sputum positive for MSSA and Klebsiella pneu moniae., Causing sepsis On IV Zosyn -Stage II sacral pressure ulcer, right heel decub -Hypothyroidism, continue Synthroid -Moderate to severe COPD, on bronchodilators, inhaled steroids -Diabetes mellitus type 2, follow Accu-Cheks -Essential hypertension -Hyperlipidemia, continue Lipitor -BPH on Flomax -Enteral tube feeding at 65 mL an hour -DO NOT RESUSCITATE
--- NOTE | 2020-10-12 22:37 | PN ---
PROGRESS NOTE DATE OF SERVICE: 10/12/2020 REASON FOR FOLLOWUP: Pneumonia. INTERVAL HISTORY: The patient is currently afebrile. The patient is breathing comfortably. Denies having any chest pain, shortness of breath or cough. No abdominal pain or diarrhea. PHYSICAL EXAMINATION: Blood pressure 105/60 with a pulse of 79. Temperature 99.1. He is 97% on trach collar. General description is an elderly male lying in bed in no distress. RESPIRATORY SYSTEM: Unlabored breathing with decreased breath sounds at the base. No wheeze. HEART: S1, S2. Regular rate and rhythm. ABDOMEN: Soft. No tenderness. LABS: Hemoglobin is 9.3, white count 12.4, BUN of 56, creatinine 1.62. DIAGNOSTIC IMPRESSION AND PLAN: Patient with pneumonia. Sputum has been positive for MSSA and Klebsiella. Patient is covered with Zosyn. Antibiotic will be transitioned to oral on discharge. Continue supportive care. MMODL / IJN: [id number] /
[2020-10-13 00:04] LABS: Glucose,Whole Blood 185 mg/dL (75-99)
[2020-10-13] MEDS: OCTREOTIDE 100 MCG/ML INJ SQ SCH ×3 (00:11→16:29)
[2020-10-13] MEDS: INSULIN ASPART (NovoLOG) 100 UNIT/ML VIAL SQ SCH ×4 (00:12→18:13)
[2020-10-13] MEDS: DIPHENOX-ATROP 2.5-0.025 MG 1 EACH TAB PO SCH ×4 (00:12→18:12)
[2020-10-13 04:03] LABS: Anisocytosis Slight; Basophils # (A) 0.1 k/uL (0-0.2); Basophils % (A) 1 %; Eosinophils # (A) 0.1 k/uL (0-0.7); Eosinophils % (A) 1 %; HCT 27.3 % (39.0-53.0); HGB 8.8 gm/dL (13.0-17.5); Hypochromasia Moderate; Lymphocytes # (A) 1.1 k/uL (1.0-4.8); Lymphocytes % (A) 7 %; MCH 29.1 pg (25.0-35.0); MCHC 32.3 g/dL (31.0-37.0); MCV 90.2 fL (80.0-100.0); Mean Platelet Volume 7.5; Monocytes # (A) 0.6 k/uL (0-1.0); Monocytes % (A) 4 %; Neutrophils # (A) 14.1 k/uL (1.3-7.7); Neutrophils % (A) 87 %; Platelet Count 257 k/uL (150-450); Poikilocytosis Slight; RBC 3.02 m/uL (4.30-5.90); RDW 18.4 % (11.5-15.5); WBC 16.2 k/uL (3.8-10.6)
[2020-10-13 04:17] LABS: Calcium 9.3 mg/dL (8.4-10.2); Potassium 4.3 mmol/L (3.5-5.1)
[2020-10-13] MEDS: PIPERACILLIN-TAZOBACTAM 3.375 GM in SODIUM CHLORIDE 0.9% 100 ML IVPB SCH ×3 (04:30→21:02)
[2020-10-13 06:33] LABS: Glucose,Whole Blood 175 mg/dL (75-99)
[2020-10-13] MEDS: LEVOTHYROXINE 50 MCG TAB PEG/G-TUBE SCH (06:52)
--- NOTE | 2020-10-13 07:54 | XR ---
EXAMINATION TYPE: XR chest 1V portable DATE OF EXAM: 10/13/2020 COMPARISON: 10/12/2020 INDICATION: Shortness of breath TECHNIQUE: Single frontal view of the chest is obtained. FINDINGS: The heart size is normal. The pulmonary vasculature is normal. Mild left lower lobe infiltrate is present. Minimal left pleural effusion may be present. Findings ar e slightly improved over the interval. Tracheostomy tube is midline. Sternotomy wires are present from prior CABG. IMPRESSION: 1. Improving left lower lobe infiltrate and small left pleural effusion
--- NOTE | 2020-10-13 08:31 | PN ---
PROGRESS NOTE Mr. Tinoco is a 80-year-old male with a known history of coronary artery disease status post coronary artery bypass grafting with a complicated postoperative course. He was readmitted to the hospital with symptoms of progressive dyspnea and evidence of pneumonia. He has been having episode of paroxysmal atrial fibrillation requiring restarting IV amiodarone. He is back in sinus mechanism at this time. He is feeling well otherwise. He denies any symptoms of chest discomfort. He continues to have significant secretions, but he feels slightly stronger. He denies any dizziness or palpitations. He is in sinus mechanism. He was not feeling well when he was in atrial fibrillation. He has a large drainage from the ileostomy. He continues to be on the IV amiodarone at this time, atorvastatin 40 mg daily, aspirin once a day, cholestyramine, Eliquis, metoprolol tartrate 25 mg 3 times a day, midodrine 10 mg q.8 hours, Flomax. PHYSICAL EXAMINATION: Blood pressure running in the 100s with the heart rate in the 70s. Afebrile. LUNGS: With few crackles at the bases. No wheezes. HEART: Regular rate and rhythm. S1, S2. No S3. No rub appreciated. ABDOMEN: Soft with ileostomy in place. PEG tube noted. EXTREMITIES: No edema. LAB DATA: Lab data shows a hemoglobin of 8.8, white blood cell of 16.2, BUN and creatinine of 52 and 1.65, which is stable. Potassium 4.3. IMPRESSION: 1. Pneumonia with respiratory failure. The patient is stabilizing. 2. Prior history of coronary artery bypass grafting with complicated postoperative course. 3. Status post ileostomy and PEG tube placement. 4. Paroxysmal atrial fibrillation. 5. Anemia. 6. Chronic kidney disease. 7. Leukocytosis. RECOMMENDATION: I am concerned about the patient's GI absorption because of the high output from the ileostomy and the fact that he was quite tachycardic when he was in atrial fibrillation raising the question of the absorption. In view of that, I will switch him to subcu Lovenox for anticoagulation hoping to achieve anticoagulation and stable pattern. Will follow his rhythm and see if we need to switch him to IV beta apolinar. Otherwise, will follow his hemoglobin, increase his activity he has been evaluated for possible swallow evaluation to see if we can start the oral feeding. We will continue increasing his physical activity and physical therapy. Depending on his progress, further recommendation will be made. MMODL / IJN: [id number] /
[2020-10-13] MEDS: LACTATED RINGERS 1,000 ML IV SCH (08:57)
[2020-10-13] MEDS: BUDESONIDE 1 MG/2 ML NEBU INHALATION SCH ×2 (09:01→20:40)
[2020-10-13] MEDS: IPRATROPIUM-ALBUTEROL 3 ML NEB INHALATION SCH ×4 (09:01→20:40)
[2020-10-13] MEDS: ASPIRIN 81 MG PO SCH (09:11)
[2020-10-13] MEDS: MIDODRINE 5 MG TAB PO SCH ×2 (09:11→16:29)
[2020-10-13] MEDS: ENOXAPARIN 80 MG/0.8 ML SYRINGE SQ SCH ×2 (09:12→22:02)
[2020-10-13] MEDS: CHOLESTYRAMINE (WITH SUGAR) 4 GM PACKET PO SCH ×2 (09:12→18:12)
[2020-10-13] MEDS: TAMSULOSIN 0.4 MG CAP.ER.24H PO SCH (09:12)
[2020-10-13] MEDS: METOPROLOL TARTRATE 25 MG TAB PO SCH ×3 (09:12→22:02)
[2020-10-13] MEDS: ACETAMINOPHEN TAB 325 MG TAB PO PRN ×2 (10:17→23:01)
--- NOTE | 2020-10-13 10:59 | P.PN ---
Subjective Progress Note Date: 10/13/20 Principal diagnosis: Acute on chronic hypoxic respiratory failure secondary to left lower lobe pneumonia and sepsis This is a 80-year-old white male familiar to my service, in July 2020, patient underwent elective coronary artery bypass grafting. He had a very complicated postoperative course, patient required multiple abdominal surgeries, multiple intubations, extubations, and the intubations, patient was a failure to wean, and he had multiple abdominal surgeries during his stay. Patient underwent tracheostomy, PEG tube placement, and we were able to transfer the pa maty to an extended care facility. He was at the extended care facility until about a week ago, his tracheostomy was capped, and he was transferred to [facility] in [facility]. Patient has been noticing increased cough, increased shortness of breath, and significant purulent secretions from the tracheostomy tube when uncapped. O2 saturation was dipping down into the 50s and in the ER he had a saturation of 86% on 15 L high flow nasal cannula. Patient was also noted to have leukocytosis, hemoglobin was low, his troponin was slightly elevated, blood pressure was noted to be marginally low, patient was admitted initially to the cardiac floor, however supposedly he was noted to have blood pressure in the 70s systolic. Patient did receive multiple fluid boluses in the ER over 3 L were given, and we were notified about the patient on the floor having low blood pressure, I recommended transferred to the ICU planning to start the patient on norepinephrine. However over the last 12 hours in the ICU, his blood pressure has been stable patient did not require placement on any pressors. His beta blockers had been on hold because of low blood pressure, and he is maintained on amiodarone. His pro-calcitonin level was noted to be 2.60. And his chest x-ray showed left lower lobe atelectasis, suspect left lower lobe pneumonia. And he had small pleural effusions noted more so than right. Going back to his previous hospital admission, patient did have left lower lobe pneumonia and he did have left pleural effusion requiring thoracentesis once or twice. Cultures previously from the sputum were positive for Pseudomonas fluorescence/putida, sensitive to Zosyn and Levaquin and meropenem. Also sensitive to cefepime. Considering the patient's presentation with hypotension, shortness of breath, cough, abnormal chest x-ray, hypoxia, and considering his recent clinical history, we were asked to see him on consultation Patient was reevaluated today on 10/04/2020, patient remains in the ICU, he is on trach collar a 55%, patient went into atrial fibrillation with RVR yesterday, and he went on amiodarone at 1 mg/m, he also received 1 unit of packed RBCs for hemoglobin of 6.7, patient converted to sinus rhythm. Remains in sinus rhythm, patient is receiving tube feeds/Nepro at 65/65. He is also receiving free water. Chest x-ray is showing minimal improvement in the left lower lobe consolidation, clinically the patient is feeling better, he is empirically on antibiotics for healthcare acquired pneumonia/Zosyn. Previous sputum cultures were positive for Pseudomonas, hence his Zosyn was chosen as the drug of choice. CBC today showed WBC 7.2 hemoglobin 6.7, hence a unit of blood was given. Electrolytes showed low sodium but improving today is 148 from 150 to yesterday. BUN is 108 creatinine 3.4 to about the same as yesterday. Reevaluated today on 10/05/2020, patient remains in the ICU, remains on 55% trach collar. Off norepinephrine, IV fluids at KVO, tolerating enteral feeding via PEG tube, patient continues to have significant amount of tracheal secretions, he is now on Zosyn and vancomycin, as well as Zyvox. His cultures from the sputum are showing MSSA, hence we will discontinue vancomycin, keep him on Zosyn, and infectious disease to address his Zyvox. Patient may not even require Zyvox considering the culture is positive for MSSA. Chest x-ray is showing bilateral pleural effusions/small, renal functioning is slightly improved over the last 24 hours. Patient was switched to oral amiodarone, and he seems to be doing quite well, in sinus rhythm. Reevaluated today on 10/06/2020, patient remains in the ICU, remains on trach collar at 28%, sputum came back positive for Klebsiella and MSSA. Patient is on Zosyn and Zyvox. Remains on a small dose of norepinephrine at 0.01 mcg/kg/m, remains on enteral feeding/Nepro at 65 ML per hour, also receiving Questran. Patient continues to have significant output from his ileostomy. Patient is feeling better overall compared to how he felt on presentation. CBC today is relatively normal WBC count is 7.1 hemoglobin is 8.7, electrolytes are normal BUN is 93 creatinine is 3.17, improving over the last couple of days. Blood cultures remain negative. Again his sputum cultures are positive for MSSA and Klebsiella pneumonia. Reevaluated today on 10/07/2020, patient remains in the ICU, remains on trach collar at 28%, receiving antibiotics for his Klebsiella and MSSA pneumonia. Patient is only on Zosyn, and his Zyvox was discontinued since it was initially started by infectious disease for possible MRSA. Patient is requiring intermittently small doses of norepinephrine, clinically however the patient is much better compared to how he felt when he came in. He is in no distress, this morning he is off norepinephrine, but he didn't require norepinephrine last night, hence I will not transfer the patient out of the ICU yet. Chest x-ray continues to show by basilar atelectasis, possible left lower lobe consolidation which is chronic. Secretions from the tracheostomy are less and less. Renal profile is improving, creatinine is down to 2.9. CBC is normal. Electrolytes are normal. On 10/08/2020 the patient is being seen in follow-up in the intensive unit. His , comfortable and currently is on a trach collar with an FiO2 of 28%. The chest x-ray shows small bilateral pleural effusions and there is adequate expansion of both lungs and a orotracheal tube is in a good location. Note that he had MSSA and Klebsiella in his sputum and patient is currently on IV antibiotics and he is receiving IV Zosyn. Patient continues to have copious amount of secretions through his tracheostomy tube and the patient has a #8 [address]iley tracheostomy tube in place and he is requiring suctioning every 2 hours at least. He still has a lot of rhonchi He is currently off pressors. He is in normal sinus rhythm. He has also PEG tube for enteral feeding and nutritional support. PEG tube is in place and the patient is on Nepro at the rate of 75 mL an hour. He continues to have output through his ileostomy bag. The patient has significant amount of output through his ileostomy was in the order of every 12 hours. No abdominal distention. No signs of any respiratory distress. The creatinine is improving and is currently down to 2.5 and the patient's hemoglobin is at 8.4. No fever. No other issues overnight. Villafana cath is also in place. He is able to communicate. However he is still profoundly weak/in lower extremities. He is able to raise his arms against gravity. On 10/09/2020 patient seen in follow-up in the intensive care unit. Patient is awake and alert, is following commands, moving all 4 extremities, no signs of any respiratory distress, he is breathing comfortably, on 28% trach collar. His pulse ox is 98%. Still having some secretions from his tracheostomy, related he is on Zosyn for antibiotic coverage. Remains on nebulized bronchodilators, hemodynamically patient has been stable. No requiring any vasopressor support for last 48 hours. No acute events overnight. His sputum cultures were positive for MSSA and Klebsiella pneumonia. Today's labs have been reviewed, normal white count at 8.5, hemoglobin is 9.0, sodium is 137, potassium is 3.7, chloride is 110, B1 is 67, creatinine is 2.18. Patient has been nothing by mouth and has been receiving nutrition in the form of Nepro at 65 with a goal of 65. Patient has had significant diarrhea, liquid yellow output from his ileostomy. No complaints of chest pain. He is in sinus mechanism with a controlled rate. Chest x-ray shows basilar infiltrates and atelectasis with small effusions. On 10/10/2020 patient seen in follow-up in the intensive care unit. He is awake and alert, oriented 3, his calm and cooperative, he denies any acute distress, he still has significant amount of secretions that are being suctioned from the tracheostomy tube, he remains on 20% trach collar. He remains on antibiotics, his sputum cultures were positive for MSSA and Klebsiella pneumonia, he is on Zosyn, he has had no fever or chills. Lung sounds reveal minimal rhonchi, less congested and wheezy on today's exam compared a few days ago. Patient is tolerating tube feedings, he remains strict nothing by mouth, he is on Nepro at a rate of 65 ML per hour with a goal of 65 with 125 ML free water flushes every 3 hours. Abdomen is soft, ileostomy is still producing copious amount of liquid yellow diarrhea, which will be sent for C. diff. There has been a total of 2.5 L in stool output in the last 24 hours. Today's labs have been reviewed, white blood cell count is 8.9, hemoglobin is 8.9, CO2 is 18, sodium is 138, potassium is 3.9, chloride is 110, renal profile is improving despite the diarrhea, with BUN of 63, creatinine is 1.94. Patient is working with physical therapy and yesterday he apparently was up in the chair with assistance, tolerated activity well. On 10/11/2020 patient seen in follow-up in intensive care unit, she remains on 28% trach collar, the pulse ox of 97%, vital signs have been stable, his been afebrile, he did have a run of A. fib with RVR this morning and was restarted on amiodarone drip and was given 150 mg bolus of amiodarone. He is currently back in sinus mechanism with a controlled rate, receiving hydration with LR at 75 ML per hour, he continues to have large volume diarrhea out of his ileostomy, he had to 3.3 L in stool output in last 24 hours, C. diff was negative. tube feedings have been switched to vital AF currently running at 75 ML per hour, patient is getting free water flushes of 125 ML every 3 hours. Yesterday we placed him on lactated Ringer's at rate of 75 ML per hour, he is receiving or sodium bicarbonate tablets, his bicarbonate concentration at today's labs has improved and is up to 23. The renal profile slightly improved. Continues on Zosyn for MSSA and Klebsiella pneumonia in sputum cultures, blood cultures have been negative, patient has been afebrile, blood pressure stable, the patient continues on midodrine. Patient is awake and alert, following commands, responding appropriately, appears tired on today's exam. Denies any acute distress, his been working with physical therapy, he stood at the bedside, he is too weak to walk. Abdomen is soft, mid abdominal incision is covered with a dressing. On 10/12/2020 patient seen in follow-up in the intensive care unit. Patient is up in the recliner, breathing comfortably, she is on 20% trach collar, lung sounds are less congested and rhonchorous on today's exam. He is awake and oriented 3, denies any distress, he is currently on lactated Ringer's at a rate of 75 ML per hour, no recurrence of A. fib RVR overnight, his amiodarone is infusing at 0.5 mg/m and he will be transitioned to oral amiodarone today per cardiology, he remained in sinus rhythm. Vital signs are stable. He is on tube feedings of vital AF a rate of 90 with a goal of 90 with 125 ML free water flushes every 3 hours. His diarrhea output has decreased some, patient had 2 L in the liquid ostomy is stool output in the last 24 hours, he is on Lomotil when necessary. No abdominal pain. no nausea or vomiting no nausea or vomiting. The secretions out of the tracheostomy tube have decreased. Patient has been nothing by mouth, she would like to have a swallow evaluation to be evaluated for oral feedings. Today's chest x-ray has been reviewed showing left lower lobe infiltrate and/or pleural effusion, and improving aeration in the right lower lobe. Today's labs have been reviewed, showing white blood cell count of 12.4, hemoglobin of 9.3, electrolytes within normal limits, renal profile shows slight improvement in creatinine, down to 1.6 today. The patient is seen today 10/13/2020 in follow-up in the intensive care unit. He is currently sitting up in a recliner at the bedside. Awake and alert in no acute distress. He is maintaining good O2 saturations in the 90s on 28% trach collar. He is receiving lactated Ringer's at 75 ML's per hour. He is currently on amiodarone drip at 0.5 mg/m. He is being nourished with vital AF at 90 ML's per hour which is goal with 125 ML free water flushes every 3 hours. He still has significant amount of output and his ileostomy. 1.8 L in the past 24 hours. He's been initiated on Questran and octreotide. Chest x-ray is showing improving left lower lobe infiltrate with small effusion. Sputum was positive for Staphylococcus aureus, Klebsiella pneumoniae. He remains on Zosyn. He is status post 1 unit of packed red blood cells this admission. Current hemoglobin 8.8. Platelets 257. INR 1.4. White count 16.2. Sodium 137. Potassium 4.3. Creatinine 1.65. He is currently in sinus rhythm. He's been initiated on Lovenox 80 mg subcu every 12 hours per cardiology. The plan is to switch back to oral amiodarone. Objective - Vital Signs Vital signs: Vital Signs Temp 97.3 F L 10/13/20 08:00 Pulse 66 10/13/20 10:00 Resp 15 10/13/20 10:00 BP 116/74 10/13/20 10:00 Pulse Ox 93 L 10/13/20 10:00 Intake & Output 10/12/20 10/13/20 10/13/20 18:59 06:59 18:59 Intake Total 2175 2265 785 Output Total 1425 2200 325 Balance 750 65 460 Weight 75.5 kg 76.4 kg Intake: IV 900 900 300 Lactated Ringers 1,000 ml 900 900 300 @ 75 mls/hr IV .[id number] [facility] Rx#:[id number] Tube Feeding 900 990 360 Other 375 375 125 Output: Urine 600 325 0 Stool 825 1875 325 Other: Voiding Method Urinal Urinal Urinal # Voids 0 1 0 - Exam GENERAL EXAM: Alert, very pleasant, 80-year-old male patient on the 28% trach collar on 93%, comfortable in no apparent distress. HEAD: Normocephalic/atraumatic. EYES: Normal reaction of pupils, equal size. Conjunctiva pink, sclera white. NOSE: Clear with pink turbinates. THROAT: No erythema or exudates. NECK: No masses, no JVD, no thyroid enlargement, no adenopathy. Midline tracheostomy in place, CHEST: No chest wall deformity. Symmetrical expansion. LUNGS: Equal air entry with crackles in the left base. CVS: Regular rate and rhythm, normal S1 and S2, no gallops, no murmurs, no rubs ABDOMEN: Soft, nontender. No hepatosplenomegaly, normal bowel sounds, no guarding or rigidity. PEG tube exit site clean and dry. Midabdominal incision covered with dressing, is healing by secondary intention, sutures are in place, bed is 100% granulated wound bed. Right upper quadrant ileostomy in place connected to a Villafana drainage bag patient is having liquid yellow stool output EXTREMITIES: No clubbing, no edema, no cyanosis, 2+ pulses and upper and lower extremities. MUSCULOSKELETAL: Muscle strength and tone normal. SPINE: No scoliosis or deformity SKIN: No rashes CENTRAL NERVOUS SYSTEM: Alert and oriented -3. No focal deficits, tone is normal in all 4 extremities. PSYCHIATRIC: Alert and oriented -3. Appropriate affect. Intact judgment and insight. - Labs CBC & Chem 7: 10/13/20 03:19 10/13/20 03:19 Labs: Abnormal Lab Results - Last 24 Hours (Table) 10/12/20 10/13/20 10/13/20 Range/Units 12:05 00:02 03:19 WBC 16.2 H (3.8-10.6) k/uL RBC 3.02 L (4.30-5.90) m/uL Hgb 8.8 L (13.0-17.5) gm/dL Hct 27.3 L (39.0-53.0) % RDW 18.4 H (11.5-15.5) % Neutrophils # 14.1 H (1.3-7.7) k/uL BUN (9-20) mg/dL Creatinine (0.66-1.25) mg/dL Glucose (74-99) mg/dL POC Glucose (mg/dL) 134 H 185 H (75-99) mg/dL 10/13/20 10/13/20 Range/Units 03:19 06:31 WBC (3.8-10.6) k/uL RBC (4.30-5.90) m/uL Hgb (13.0-17.5) gm/dL Hct (39.0-53.0) % RDW (11.5-15.5) % Neutrophils # (1.3-7.7) k/uL BUN 52 H (9-20) mg/dL Creatinine 1.65 H (0.66-1.25) mg/dL Glucose 134 H (74-99) mg/dL POC Glucose (mg/dL) 175 H (75-99) mg/dL Assessment and Plan Assessment: 1 Bilateral lower lobe pneumonia with sepsis. The chest x-ray shows improvement in the lower lobe pulmonary infiltrates and there are still some infiltration and small effusions bilaterally. He remains on IV Zosyn. 2 Acute on chronic hypoxic respiratory failure secondary to pneumonia and unde rlying COPD, currently on a 28% trach collar and the patient required tracheostomy following a prolonged intubation mechanical ventilation post cardiac surgery. 3 Bilateral lower lobe pneumonia, secondary to MSSA, and Klebsiella pneumonia (cultured in the sputum) 4 Sepsis secondary to pneumonia, currently off pressors 5 Acute on chronic kidney injury secondary to sepsis, , improving 6 Moderate-severe COPD. 7 History of triple-vessel coronary artery disease, bypass surgery on 07/18/2020 with multiple postoperative complications 8 History of tracheostomy mostly because of failure to wean. The patient has a #8 [address] tracheostomy tube in place 9 Benign essential hypertension. 10 Type 2 diabetes. 11 Dyslipidemia. 12 Chronic atrial fibrillation, on amiodarone and on anticoagulation therapy 13 History of hypothyroidism. 14 History of ileostomy on 08/02/2020. 15 Chronic anemia 16 generalized motor weakness and debility seconds above-mentioned comorbidities 17 Large volume diarrhea, out of the ileostomy, C. diff has been ruled out and initiated on octreotide and Questran Plan: The patient is seen and evaluated by Dr. Meyers Chest x-ray and labs reviewed Continue Zosyn Continue FiO2 via trach collar Continue with tube feeding and free water flushes per dietary services Continues with high output via the ileostomy Initiated on octreotide and Questran We'll continue to monitor him closely here in the ICU another 24 hour We will continue to follow make further recommendations based on his clinical status I, the cosigning physician, performed a history & physical examination of the patient. Lungs sounds echo is in the left base. Maintaining good O2 saturations in the 90s on 28% trach collar. I discussed the assessment and plan of care with my nurse practitioner, Olga Marin. I attest to the above note as dictated by her.
[2020-10-13 11:23] LABS: Glucose,Whole Blood 121 mg/dL (75-99)
--- NOTE | 2020-10-13 13:26 | P.PN ---
Subjective Progress Note Date: 10/13/20 CHIEF COMPLAINT: Respiratory distress HISTORY OF PRESENT ILLNESS: Patient seen and examined with Dr. Dempsey. Patient is being followed in regards to his abdominal wound at incision site. Patient remains in the ICU. He is awake. He denies any abdominal pain. Patient is sitting up at bedside chair comfortably. Patient is still having a lot of output through his ileostomy. Patient was started on Sandostatin yesterday due to the high ileostomy output. Tube feedings changed to vital 1.2. He is scheduled for modified barium swallow today. Patient is afebrile. Trach collaring 100%. WBC elevated at 16.2 hemoglobin 8.8 creatinine 1.65 Chest x-ray shows improving left lower lobe infiltrate and small left pleural effusion PHYSICAL EXAM: VITAL SIGNS: Reviewed. GENERAL: Well-developed in no acute distress. HEENT: No sclera icterus. Extraocular movements grossly intact. Moist buccal mucosa. Head is atraumatic, normocephalic. ABDOMEN: Soft. Nondistended. Nontender. Dressing clean dry and intact. Patient has a yellowish liquidy stool coming through the ileostomy. NEUROLOGIC: Alert and oriented. Cranial nerves II through XII grossly intact. ASSESSMENT: 1. Abdominal wound at surgical incision site. 2. High ileostomy output 3. History of ischemic small bowel with evidence of pneumatosis status post small bowel resection on 07/24/2020. 4. History of intraperitoneal hemorrhage and small bowel ischemia status post exploratory laparotomy, washout of peritoneal cavity and ileostomy with small bowel resection on 08/02/2020 5. 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 Acute hypoxic respiratory failure secondary to pneumonia 7. Sepsis secondary to pneumonia 8. Acute kidney injury 9. chronic Anemia: With known chronic kidney disease and iron deficiency. He did require blood transfusion during this admission PLAN: -Sandostatin added yesterday to help with high ileostomy output -Recommend ileostomy reversal when patient is medically stable -Continue wound care with Aquacel dressing -Continue supportive care -Continue ICU management -Continue antibiotics -Dietitian changed tube feedings to Vital 1.2 to help with increased ileostomy output -Continue IV fluids Physician [employer] note has been reviewed by physician. Signing provider agrees with the documented findings, assessment, and plan of care. Objective - Vital Signs Vital signs: Vital Signs Temp 96.7 F L 10/13/20 12:00 Pulse 64 10/13/20 12:19 Resp 17 10/13/20 11:00 BP 115/67 10/13/20 12:00 Pulse Ox 96 10/13/20 12:00 Intake & Output 10/12/20 10/13/20 10/13/20 18:59 06:59 18:59 Intake Total 2175 2265 1145 Output Total 1425 2200 575 Balance 750 65 570 Weight 75.5 kg 76.4 kg Intake: IV 900 900 450 Lactated Ringers 1,000 ml 900 900 450 @ 75 mls/hr IV .[id number] [facility] Rx#:[id number] Tube Feeding 900 990 540 Other 375 375 155 Output: Urine 600 325 0 Stool 825 1875 575 Other: Voiding Method Urinal Urinal Urinal # Voids 0 1 0 - Labs CBC & Chem 7: 10/13/20 03:19 10/13/20 03:19 Labs: Abnormal Lab Results - Last 24 Hours (Table) 10/13/20 10/13/20 10/13/20 Range/Units 00:02 03:19 03:19 WBC 16.2 H (3.8-10.6) k/uL RBC 3.02 L (4.30-5.90) m/uL Hgb 8.8 L (13.0-17.5) gm/dL Hct 27.3 L (39.0-53.0) % RDW 18.4 H (11.5-15.5) % Neutrophils # 14.1 H (1.3-7.7) k/uL BUN 52 H (9-20) mg/dL Creatinine 1.65 H (0.66-1.25) mg/dL Glucose 134 H (74-99) mg/dL POC Glucose (mg/dL) 185 H (75-99) mg/dL 10/13/20 10/13/20 Range/Units 06:31 11:21 WBC (3.8-10.6) k/uL RBC (4.30-5.90) m/uL Hgb (13.0-17.5) gm/dL Hct (39.0-53.0) % RDW (11.5-15.5) % Neutrophils # (1.3-7.7) k/uL BUN (9-20) mg/dL Creatinine (0.66-1.25) mg/dL Glucose (74-99) mg/dL POC Glucose (mg/dL) 175 H 121 H (75-99) mg/dL
[2020-10-13] MEDS: AMIODARONE 450 MG in DEXTROSE 5% IN WATER 250 ML IV SCH ×2 (13:44)
--- NOTE | 2020-10-13 16:56 | FL ---
EXAMINATION TYPE: FL barium swallow w video DATE OF EXAM: 10/13/2020 COMPARISON: NONE HISTORY: Dysphasia TECHNIQUE: Fluoroscopy. FINDINGS: Fluoroscopic guidance was provided for the procedure performed in conjunction with the [facility] pathology department. Please see complete report forthcoming from the Speech Pathology departmen t. Various consistencies from thin liquid to solids were administered. Fluoroscopy time 1 minute 37 seconds. Number of images: 0. Aspiration occurred with thin liquids and nectar thick liquids. There is significant pooling observed in the vallecula. There is hesitancy of propulsion through the oral pharynx. IMPRESSION: 1. Aspiration with thin and nectar thick liquids. Additional consistencies were without penetration. 2. Significant pooling within the vallecula
--- NOTE | 2020-10-13 17:02 | PN ---
PROGRESS NOTE DATE OF SERVICE: 10/13/2020 REASON FOR FOLLOWUP: Pneumonia. INTERVAL HISTORY: The patient is currently afebrile. The patient is breathing comfortably. Denies having any chest pain, shortness of breath. Occasional cough. No abdominal pain. PHYSICAL EXAMINATION: Blood pressure is 121/62 with a pulse of 64, temperature 96.7. He is 100% on trach collar. General description an elderly male up in the chair in no distress. RESPIRATORY SYSTEM: Unlabored breathing. Clear to auscultation anteriorly. HEART: S1, S2. Regular rate and rhythm. ABDOMEN: Soft. No tenderness. LABS: Hemoglobin 8.8, white count 16.2. BUN of 52, creatinine 1.65. DIAGNOSTIC IMPRESSION AND PLAN: Patient with pneumonia. Sputum has grown Klebsiella and MSSA. Patient is covered with Zosyn; to continue. He was noted to have slight worsening of the white count. That will be monitored closely. Repeat inflammatory markers and continue supportive care. MMODL / IJN: [id number] /
[2020-10-13 17:28] LABS: Glucose,Whole Blood 169 mg/dL (75-99)
--- NOTE | 2020-10-13 17:54 | PN ---
PROGRESS NOTE Patient is seen for followup for acute kidney injury secondary to ATN. The patient's renal function continues to improve, serum creatinine now staying at about 1.6 mg/dL. He is currently awake, comfortable. Denies any significant complaints. He had developed atrial fibrillation with RVR and was maintained on amiodarone drip. Currently patient is in normal sinus rhythm. He has had good urine output. PHYSICAL EXAMINATION: On examination today, blood pressure 115/67, heart rate 65 per minute. He is afebrile. EXAMINATION OF THE HEART: S1 and S2. EXAMINATION OF LUNGS: Decreased breath sounds at bases. ABDOMEN: Soft, non-tender. Examination of lower extremities shows no significant edema. 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 LABS: Hemoglobin 8.8, sodium 137, potassium 4.3, chloride 102, BUN 52, creatinine 1.65. ASSESSMENT: 1. Acute kidney injury, acute tubular necrosis, currently improved, serum creatinine staying at about 1.6 mg/dL. 2. Atrial fibrillation with rapid ventricular response, converted back to normal sinus rhythm. Currently maintained on amiodarone. 3. Sepsis from pneumonia with sputum culture growing Staphylococcus aureus and Klebsiella pneumoniae. 4. Status post explorative laparotomy in July for ischemic bowel, status post bowel resection and ileostomy. 5. Abdominal wound infection, improved. 6. Hypernatremia, now resolved. PLAN: Continue to encourage increased oral intake. Discontinue IV fluids. Repeat labs in a.m. Continue to avoid nephrotoxic medications. MMODL / IJN: [id number] /
[2020-10-13] MEDS ORDERED: AMIODARONE 200 MG TAB PO SCH (20:00)
--- NOTE | 2020-10-13 21:24 | P.PN ---
Subjective This is a pleasant 80 years old male with past medical history of coronary artery disease, COPD, diabetes mellitus, hyperlipidemia, hypertension, hy pothyroidism, coronary artery disease status post cardiac cath and stent placement. He recently underwent double coronary artery bypass grafting for his triple-vessel coronary artery disease. He was in the hospital from 07/18/20- 08/25/2020 pt has tracheostomhy and PEG tube , Information were obtained with the help of at bedside, he presents with confusion, and a lot of secretion Why he states that after been discharged from [facility] and he went to [facility] aren't states therefore one month and 5 days and then he was discharged a few days ago to half-way at [facility] on Friday, however over the weekend he has more congestion, he has weak cough and needed frequent suctioning, patient was able to talk weekly his little confused but he can't communicate through gesture, he denies pain but he is tachypneic He has tracheostomy, PEG tube and try to colostomy. Admitted with-hypotension secondary to severe sepsis secondary to pneumonia, aspiration pneumonia, acute hypoxic respiratory failure, acute kidney injury secondary to ATN, elevated sodium, increased lactic acid, elevated troponin felt to be from tachycardia. Recent history of intraperitoneal hemorrhage status post laboratory with washout and ileostomy on 08/02/2020. Tracheostomy. C. diff ruled out. 10/13/2020 History the patient developed A. fib and he was started on amiodarone drip which helped to convert him to sinus rhythm today with a plan for him to convert him to oral amiodarone, however there is concerned about his disruption, he has 2 palpating through PEG tube but he has high output ileostomy with stool is light yellow in color for example he has about 1.2 L discharge this morning. Also he is on IV fluids in the form of lingular left at 75 milliliters per hour Patient is also covered with Zosyn and water flushes lowered to 30 mL every 4 hours Also he has low urine output with bladder scan and possible straight cath if needed Mistiran is admitted today Review of Systems: n/a Active Medications Generic Name Dose Route Start Last Admin Trade Name Freq PRN Reason Stop Dose Admin Acetaminophen 650 mg 10/02/20 11:26 10/13/20 10:17 Acetaminophen Tab 325 Mg Tab PO 650 mg Q6HR PRN Administration Mild Pain or Fever > 100.5 Albuterol/Ipratropium 3 ml 10/04/20 08:00 10/13/20 20:40 Ipratropium-Albuterol 3 Ml Neb INHALATION 3 ml RT-QID WADE Administration Albuterol/Ipratropium 3 ml 10/03/20 21:23 10/03/20 21:27 Ipratropium-Albuterol 3 Ml Neb INHALATION 3 ml RT-Q2H PRN Administration Shortness Of Breath Or Wheezing Amiodarone HCl 400 mg 10/13/20 20:00 10/13/20 18:05 Amiodarone 200 Mg Tab PO Not Given BID WADE Aspirin 81 mg 10/07/20 18:30 10/13/20 09:11 Aspirin 81 Mg PO 81 mg DAILY WADE Administration Atorvastatin Calcium 40 mg 10/03/20 20:00 10/12/20 20:51 Atorvastatin 40 Mg Tab PEG/G-TUBE 40 mg HS@2000 WADE Administration Budesonide 1 mg 10/04/20 08:00 10/13/20 20:40 Budesonide 1 Mg/2 Ml Nebu INHALATION 1 mg RT-BID WADE Administration Cholestyramine Resin 4 gm 10/06/20 10:00 10/13/20 18:12 Cholestyramine (With Sugar) 4 Gm Packet PO 4 gm BID@1000,1800 WADE Administration Darbepoetin Alex 40 mcg 10/03/20 10:00 10/10/20 12:18 Darbepoetin Alex 40 Mcg/0.4 Ml Syringe SQ 40 mcg Q7D WADE Administration Diphenoxylate HCl/Atropine 1 each 10/12/20 12:00 10/13/20 18:12 Diphenox-Atrop 2.5-0.025 Mg 1 Each Tab PO 1 each Q6HR WADE Administration Enoxaparin Sodium 80 mg 10/13/20 09:00 10/13/20 09:12 Enoxaparin 80 Mg/0.8 Ml Syringe SQ 80 mg Q12HR WADE Administration Famotidine 20 mg 10/07/20 21:00 10/12/20 20:51 Famotidine 20 Mg Tab PO 20 mg HS WADE Administration Piperacillin Sod/Tazobactam 100 mls @ 25 mls/hr 10/09/20 20:00 10/13/20 21:02 Sod 3.375 gm/ Sodium Chloride IVPB 25 mls/hr Q8H WADE Administration Amiodarone HCl 450 mg/ 250 mls @ 16.667 mls/hr 10/12/20 23:00 10/13/20 13:44 Dextrose/Water IV 0.5 mg/min .Q15H WADE 16.667 mls/hr Administration Protocol 0.5 MG/MIN Insulin Aspart 0 unit 10/04/20 00:00 10/13/20 18:13 Insulin Aspart (Novolog) 100 Unit/Ml Vial SQ 2 unit Q6H WADE Administration Protocol Levothyroxine Sodium 50 mcg 10/04/20 06:00 10/13/20 06:52 Levothyroxine 50 Mcg Tab PEG/G-TUBE 50 mcg DAILY@0600 [facility] Administration Melatonin 3 mg 10/08/20 20:46 10/12/20 20:50 Melatonin 3 Mg Tablet PO 3 mg HS PRN Administration Insomnia Metoprolol Tartrate 25 mg 10/03/20 10:00 10/13/20 16:28 Metoprolol Tartrate 25 Mg Tab PO 25 mg TID WADE Administration Midodrine 10 mg 10/05/20 08:15 10/13/20 16:29 Midodrine 5 Mg Tab PO 10 mg Q8HR WADE Administration Miscellaneous Information 1 each 10/09/20 18:33 Potassium Replacement Protocol 1 Each Misc MISCELLANE DAILY PRN Per Protocol Protocol Naloxone HCl 0.2 mg 10/02/20 11:26 Naloxone 0.4 Mg/Ml 1 Ml Vial IV Q2M PRN Opioid Reversal Octreotide Acetate 100 mcg 10/12/20 16:00 10/13/20 16:29 Octreotide 100 Mcg/Ml Inj SQ 100 mcg Q8HR WADE Administration Ondansetron HCl 4 mg 10/02/20 11:26 10/11/20 03:52 Ondansetron 4 Mg/2 Ml Vial IVP 4 mg Q8HR PRN Administration Nausea And Vomiting Quetiapine Fumarate 25 mg 10/03/20 21:00 10/12/20 20:52 Quetiapine 25 Mg Tab PO 25 mg HS WADE Administration Tamsulosin HCl 0.4 mg 10/03/20 09:30 10/13/20 09:12 Tamsulosin 0.4 Mg Cap.Er.24h PO 0.4 mg [id number] WADE Administration Objective - Vital Signs Vital signs: Vital Signs Temp 97.8 F 10/13/20 16:00 Pulse 74 10/13/20 17:00 Resp 18 10/13/20 17:00 BP 108/69 10/13/20 17:00 Pulse Ox 95 10/13/20 17:00 Intake & Output 10/12/20 10/13/20 10/13/20 18:59 06:59 18:59 Intake Total 2175 2265 2245.56 Output Total 1425 2200 1575 Balance 750 65 670.56 Weight 75.5 kg 76.4 kg 76.4 kg Intake: IV 900 900 825 Lactated Ringers 1,000 ml 900 900 825 @ 75 mls/hr IV .[id number] WADE Rx#:[id number] Intake, IV Titration 245.56 Amount Amiodarone 450 mg In 245.56 Dextrose 5% in Water 250 ml @ 0.5 MG/MIN 16.667 mls/hr IV .Q15H WADE Rx#: [id number] Tube Feeding 900 990 990 Other 375 375 185 Output: Urine 600 325 700 Stool 825 1875 875 Other: Voiding Method Urinal Urinal Urinal # Voids 0 1 0 - Exam -GENERAL: The patient is awake, he is more alert. He is well nourished. HEENT: Pupils are round and equally reacting to light. EOMI. No scleral icterus. No conjunctival pallor. Normocephalic, atraumatic. No pharyngeal erythema. No thyromegaly. CARDIOVASCULAR: S1 and S2 present. No murmurs, rubs, or gallops. -PULMONARY: Chest is clear to auscultation, no wheezing or crackles. Tachypneic. Status post tracheostomy with some secretions -ABDOMEN: Soft, nontender, nondistended, normoactive bowel sounds. No palpable organomegaly. PEG tube is in place, right colostomy. Abdominal midline wound, no purulent discharge but yellow , status post debridement by surgical team with dressing is in place MUSCULOSKELETAL: No joint swelling or deformity. EXTREMITIES: No cyanosis, clubbing, or pedal edema. NEUROLOGICAL: Gross neurological examination did not reveal any focal deficits. SKIN: No rashes. No petechiae - Labs CBC & Chem 7: 10/13/20 03:19 10/13/20 03:19 Labs: Abnormal Lab Results - Last 24 Hours (Table) 10/13/20 10/13/20 10/13/20 Range/Units 00:02 03:19 03:19 WBC 16.2 H (3.8-10.6) k/uL RBC 3.02 L (4.30-5.90) m/uL Hgb 8.8 L (13.0-17.5) gm/dL Hct 27.3 L (39.0-53.0) % RDW 18.4 H (11.5-15.5) % Neutrophils # 14.1 H (1.3-7.7) k/uL BUN 52 H (9-20) mg/dL Creatinine 1.65 H (0.66-1.25) mg/dL Glucose 134 H (74-99) mg/dL POC Glucose (mg/dL) 185 H (75-99) mg/dL 10/13/20 10/13/20 10/13/20 Range/Units 06:31 11:21 17:27 WBC (3.8-10.6) k/uL RBC (4.30-5.90) m/uL Hgb (13.0-17.5) gm/dL Hct (39.0-53.0) % RDW (11.5-15.5) % Neutrophils # (1.3-7.7) k/uL BUN (9-20) mg/dL Creatinine (0.66-1.25) mg/dL Glucose (74-99) mg/dL POC Glucose (mg/dL) 175 H 121 H 169 H (75-99) mg/dL Assessment and Plan Assessment: Acute hypotension , possibly secondary to severe sepsis related to his pneumonia. 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 table operator History of triple vessel coronary artery disease status post bypass surgery on 07/18/2020 Atrial fibrillation on Eliquis (on hold), currently covered with Lovenox Stage II sacral pressure ulcer Recent history of intraperitoneal hemorrhage status post exploratory laparotomy with washout and ileostomy on 08/02/2020 Hypothyroidism Moderate to severe COPD, Remote history of nicotine dependence Chronic kidney disease stage II Hypertension Hyperlipidemia Type 2 diabetes mellitus No code Plan: This is a pleasant 80 years old male who presents with dyspnea and hypotension possible secondary to aspiration pneumonia. on Zosyn. Also he has high output ileostomy, continue with tube feeding and water flushes continue with IV fluid. At [facility] and follow-up stool output. Cardiology on the case for his A. fib with RVR correct with amiodarone culture.Pulmonary and cardiology consult, continue with IV fluids, continue with oxygen as needed. Continue with amiodarone drip and metoprolol. Hold Eliquis and aspirin Fireworks Maker and surgical team are consulted as well Check occult blood in the stool Labs and medication were reviewed.. Continue same treatment. Continue with symptomatic treatment. Resume home medication if patient able to take them. Monitor lytes and vitals. DVT and GI prophylaxis. Further recommendations depends on the clinical course of the patient DVT prophylaxis: Hold Eliquis and continue with Lovenox. Continue with mechanical GI Prophylaxis: Protonix Prognosis is guarded
[2020-10-13] MEDS: QUEtiapine 25 MG TAB PO SCH (22:02)
[2020-10-13] MEDS: FAMOTIDINE 20 MG TAB PO SCH (22:02)
[2020-10-13] MEDS: ATORVASTATIN 40 MG TAB PEG/G-TUBE SCH (22:02)
[2020-10-13] MEDS ORDERED: ACETAMINOPHEN TAB 325 MG TAB PO PRN (22:07)
[2020-10-13] MEDS: MELATONIN 3 MG TABLET PO PRN (22:21)
[2020-10-14 00:10] LABS: Glucose,Whole Blood 162 mg/dL (75-99)
[2020-10-14] MEDS: MIDODRINE 5 MG TAB PO SCH ×3 (00:19→17:14)
[2020-10-14] MEDS: OCTREOTIDE 100 MCG/ML INJ SQ SCH ×3 (00:19→17:14)
[2020-10-14] MEDS: INSULIN ASPART (NovoLOG) 100 UNIT/ML VIAL SQ SCH ×4 (00:19→17:15)
[2020-10-14] MEDS: DIPHENOX-ATROP 2.5-0.025 MG 1 EACH TAB PO SCH ×4 (00:19→17:14)
[2020-10-14] MEDS: AMIODARONE 450 MG in DEXTROSE 5% IN WATER 250 ML IV SCH ×4 (03:59→20:11)
[2020-10-14] MEDS: PIPERACILLIN-TAZOBACTAM 3.375 GM in SODIUM CHLORIDE 0.9% 100 ML IVPB SCH (04:00)
[2020-10-14 04:27] LABS: Potassium 4.1 mmol/L (3.5-5.1)
[2020-10-14 06:00] LABS: Glucose,Whole Blood 157 mg/dL (75-99)
[2020-10-14] MEDS: LEVOTHYROXINE 50 MCG TAB PEG/G-TUBE SCH (06:01)
--- NOTE | 2020-10-14 06:44 | XR ---
EXAMINATION TYPE: XR chest 1V portable DATE OF EXAM: 10/14/2020 CLINICAL HISTORY: Difficulty breathing progress study. TECHNIQUE: Single AP portable upright view of the chest is obtained. COMPARISON: Chest x-ray from one day earlier and older studies. FINDINGS: Stable tracheostomy tube and right-sided PICC line terminating in brachiocephalic vein. Ov erlying sternal wires and mediastinal clips redemonstrated. Persistent bibasilar opacities on backgro und chronic parenchymal changes. Cardiac silhouette size is stable and within normal limits. Osseous structures are intact. IMPRESSION: Chronic parenchymal changes with small left pleural effusion and bibasilar atelectasis an d/or infiltrate are all redemonstrated. No significant change from one day earlier.
[2020-10-14 07:49] LABS: Anisocytosis Slight; HCT 27.3 % (39.0-53.0); HGB 8.6 gm/dL (13.0-17.5); Hypochromasia Moderate; MCH 28.3 pg (25.0-35.0); MCHC 31.4 g/dL (31.0-37.0); MCV 90.3 fL (80.0-100.0); Mean Platelet Volume 8.1; Platelet Count 241 k/uL (150-450); Poikilocytosis Slight; RBC 3.02 m/uL (4.30-5.90); RDW 18.3 % (11.5-15.5); WBC 15.3 k/uL (3.8-10.6)
[2020-10-14] MEDS: IPRATROPIUM-ALBUTEROL 3 ML NEB INHALATION SCH ×4 (07:52→21:08)
[2020-10-14] MEDS: BUDESONIDE 1 MG/2 ML NEBU INHALATION SCH ×2 (07:52→21:08)
--- NOTE | 2020-10-14 08:38 | PN ---
PROGRESS NOTE Mr. Tinoco is a 80-year-old male status post coronary artery bypass grafting with a complicated postoperative course. He was readmitted to the hospital for respiratory failure and evidence of pneumonia. He is sitting up in the chair, feels better. His breathing is stable. He denies any dizziness. He denies any palpitation. He continues to have large output from his ileostomy raising the question of the absorption. He continued to be on IV amiodarone as well as subcu Lovenox. He denies any chest discomfort. He denies any dizziness. He is in atrial fibrillation with controlled ventricular response. He had paroxysmal atrial fibrillation before. He continues to be at this time on the IV amiodarone, aspirin, Lipitor, cholestyramine, Lovenox 80 mg IV q.12 hours, metoprolol tartrate 25 mg 3 times a day. PHYSICAL EXAMINATION: VITAL SIGNS: Blood pressure 109/70 with a heart rate in the 70s. LUNGS: With few crackles at the bases. HEART: Irregularly irregular S1, S2. No S3. No rub. ABDOMEN: Soft. Ileostomy in place and noted, as well as evidence of PEG tube. EXTREMITIES: No edema. LAB DATA: Lab data revealed BUN and creatinine 15 and 1.58, potassium 4.1, hemoglobin of 8.6. IMPRESSION: 1. Respiratory failure, stabilizing with recent pneumonia status post coronary artery bypass grafting. 2. Status post bowel resection post coronary artery bypass graft with ileostomy, large output consistent with malabsorption. 3. Paroxysmal atrial fibrillation. 4. Generalized weakness. 5. Status post tracheostomy. 6. Acute renal injury, stabilizing. 7. History of diabetes. 8. Hyperlipidemia. RECOMMENDATION: I will continue the IV Cardizem as well as the Lovenox until the issue of absorption will be further evaluated. In the meantime, continue present therapy. Continue incentive spirometry and increase in his physical activity and depending on his progress, further recommendation will be made. MMODL / IJN: [id number] /
--- NOTE | 2020-10-14 09:05 | P.PN ---
Subjective Progress Note Date: 10/14/20 Principal diagnosis: Acute on chronic hypoxic respiratory failure secondary to left lower lobe pneumonia and sepsis This is a 80-year-old white male familiar to my service, in July 2020, patient underwent elective coronary artery bypass grafting. He had a very complicated postoperative course, patient required multiple abdominal surgeries, multiple intubations, extubations, and the intubations, patient was a failure to wean, and he had multiple abdominal surgeries during his stay. Patient underwent tracheostomy, PEG tube placement, and we were able to transfer the pa maty to an extended care facility. He was at the extended care facility until about a week ago, his tracheostomy was capped, and he was transferred to [facility] in [facility]. Patient has been noticing increased cough, increased shortness of breath, and significant purulent secretions from the tracheostomy tube when uncapped. O2 saturation was dipping down into the 50s and in the ER he had a saturation of 86% on 15 L high flow nasal cannula. Patient was also noted to have leukocytosis, hemoglobin was low, his troponin was slightly elevated, blood pressure was noted to be marginally low, patient was admitted initially to the cardiac floor, however supposedly he was noted to have blood pressure in the 70s systolic. Patient did receive multiple fluid boluses in the ER over 3 L were given, and we were notified about the patient on the floor having low blood pressure, I recommended transferred to the ICU planning to start the patient on norepinephrine. However over the last 12 hours in the ICU, his blood pressure has been stable patient did not require placement on any pressors. His beta blockers had been on hold because of low blood pressure, and he is maintained on amiodarone. His pro-calcitonin level was noted to be 2.60. And his chest x-ray showed left lower lobe atelectasis, suspect left lower lobe pneumonia. And he had small pleural effusions noted more so than right. Going back to his previous hospital admission, patient did have left lower lobe pneumonia and he did have left pleural effusion requiring thoracentesis once or twice. Cultures previously from the sputum were positive for Pseudomonas fluorescence/putida, sensitive to Zosyn and Levaquin and meropenem. Also sensitive to cefepime. Considering the patient's presentation with hypotension, shortness of breath, cough, abnormal chest x-ray, hypoxia, and considering his recent clinical history, we were asked to see him on consultation Patient was reevaluated today on 10/04/2020, patient remains in the ICU, he is on trach collar a 55%, patient went into atrial fibrillation with RVR yesterday, and he went on amiodarone at 1 mg/m, he also received 1 unit of packed RBCs for hemoglobin of 6.7, patient converted to sinus rhythm. Remains in sinus rhythm, patient is receiving tube feeds/Nepro at 65/65. He is also receiving free water. Chest x-ray is showing minimal improvement in the left lower lobe consolidation, clinically the patient is feeling better, he is empirically on antibiotics for healthcare acquired pneumonia/Zosyn. Previous sputum cultures were positive for Pseudomonas, hence his Zosyn was chosen as the drug of choice. CBC today showed WBC 7.2 hemoglobin 6.7, hence a unit of blood was given. Electrolytes showed low sodium but improving today is 148 from 150 to yesterday. BUN is 108 creatinine 3.4 to about the same as yesterday. Reevaluated today on 10/05/2020, patient remains in the ICU, remains on 55% trach collar. Off norepinephrine, IV fluids at KVO, tolerating enteral feeding via PEG tube, patient continues to have significant amount of tracheal secretions, he is now on Zosyn and vancomycin, as well as Zyvox. His cultures from the sputum are showing MSSA, hence we will discontinue vancomycin, keep him on Zosyn, and infectious disease to address his Zyvox. Patient may not even require Zyvox considering the culture is positive for MSSA. Chest x-ray is showing bilateral pleural effusions/small, renal functioning is slightly improved over the last 24 hours. Patient was switched to oral amiodarone, and he seems to be doing quite well, in sinus rhythm. Reevaluated today on 10/06/2020, patient remains in the ICU, remains on trach collar at 28%, sputum came back positive for Klebsiella and MSSA. Patient is on Zosyn and Zyvox. Remains on a small dose of norepinephrine at 0.01 mcg/kg/m, remains on enteral feeding/Nepro at 65 ML per hour, also receiving Questran. Patient continues to have significant output from his ileostomy. Patient is feeling better overall compared to how he felt on presentation. CBC today is relatively normal WBC count is 7.1 hemoglobin is 8.7, electrolytes are normal BUN is 93 creatinine is 3.17, improving over the last couple of days. Blood cultures remain negative. Again his sputum cultures are positive for MSSA and Klebsiella pneumonia. Reevaluated today on 10/07/2020, patient remains in the ICU, remains on trach collar at 28%, receiving antibiotics for his Klebsiella and MSSA pneumonia. Patient is only on Zosyn, and his Zyvox was discontinued since it was initially started by infectious disease for possible MRSA. Patient is requiring intermittently small doses of norepinephrine, clinically however the patient is much better compared to how he felt when he came in. He is in no distress, this morning he is off norepinephrine, but he didn't require norepinephrine last night, hence I will not transfer the patient out of the ICU yet. Chest x-ray continues to show by basilar atelectasis, possible left lower lobe consolidation which is chronic. Secretions from the tracheostomy are less and less. Renal profile is improving, creatinine is down to 2.9. CBC is normal. Electrolytes are normal. On 10/08/2020 the patient is being seen in follow-up in the intensive unit. His , comfortable and currently is on a trach collar with an FiO2 of 28%. The chest x-ray shows small bilateral pleural effusions and there is adequate expansion of both lungs and a orotracheal tube is in a good location. Note that he had MSSA and Klebsiella in his sputum and patient is currently on IV antibiotics and he is receiving IV Zosyn. Patient continues to have copious amount of secretions through his tracheostomy tube and the patient has a #8 Shiley tracheostomy tube in place and he is requiring suctioning every 2 hours at least. He still has a lot of rhonchi He is currently off pressors. He is in normal sinus rhythm. He has also PEG tube for enteral feeding and nutritional support. PEG tube is in place and the patient is on Nepro at the rate of 75 mL an hour. He continues to have output through his ileostomy bag. The patient has significant amount of output through his ileostomy was in the order of every 12 hours. No abdominal distention. No signs of any respiratory distress. The creatinine is improving and is currently down to 2.5 and the patient's hemoglobin is at 8.4. No fever. No other issues overnight. Villafana cath is also in place. He is able to communicate. However he is still profoundly weak/in lower extremities. He is able to raise his arms against gravity. On 10/09/2020 patient seen in follow-up in the intensive care unit. Patient is awake and alert, is following commands, moving all 4 extremities, no signs of any respiratory distress, he is breathing comfortably, on 28% trach collar. His pulse ox is 98%. Still having some secretions from his tracheostomy, related he is on Zosyn for antibiotic coverage. Remains on nebulized bronchodilators, hemodynamically patient has been stable. No requiring any vasopressor support for last 48 hours. No acute events overnight. His sputum cultures were positive for MSSA and Klebsiella pneumonia. Today's labs have been reviewed, normal white count at 8.5, hemoglobin is 9.0, sodium is 137, potassium is 3.7, chloride is 110, B1 is 67, creatinine is 2.18. Patient has been nothing by mouth and has been receiving nutrition in the form of Nepro at 65 with a goal of 65. Patient has had significant diarrhea, liquid yellow output from his ileostomy. No complaints of chest pain. He is in sinus mechanism with a controlled rate. Chest x-ray shows basilar infiltrates and atelectasis with small effusions. On 10/10/2020 patient seen in follow-up in the intensive care unit. He is awake and alert, oriented 3, his calm and cooperative, he denies any acute distress, he still has significant amount of secretions that are being suctioned from the tracheostomy tube, he remains on 20% trach collar. He remains on antibiotics, his sputum cultures were positive for MSSA and Klebsiella pneumonia, he is on Zosyn, he has had no fever or chills. Lung sounds reveal minimal rhonchi, less congested and wheezy on today's exam compared a few days ago. Patient is tolerating tube feedings, he remains strict nothing by mouth, he is on Nepro at a rate of 65 ML per hour with a goal of 65 with 125 ML free water flushes every 3 hours. Abdomen is soft, ileostomy is still producing copious amount of liquid yellow diarrhea, which will be sent for C. diff. There has been a total of 2.5 L in stool output in the last 24 hours. Today's labs have been reviewed, white blood cell count is 8.9, hemoglobin is 8.9, CO2 is 18, sodium is 138, potassium is 3.9, chloride is 110, renal profile is improving despite the diarrhea, with BUN of 63, creatinine is 1.94. Patient is working with physical therapy and yesterday he apparently was up in the chair with assistance, tolerated activity well. On 10/11/2020 patient seen in follow-up in intensive care unit, she remains on 28% trach collar, the pulse ox of 97%, vital signs have been stable, his been afebrile, he did have a run of A. fib with RVR this morning and was restarted on amiodarone drip and was given 150 mg bolus of amiodarone. He is currently back in sinus mechanism with a controlled rate, receiving hydration with LR at 75 ML per hour, he continues to have large volume diarrhea out of his ileostomy, he had to 3.3 L in stool output in last 24 hours, C. diff was negative. tube feedings have been switched to vital AF currently running at 75 ML per hour, patient is getting free water flushes of 125 ML every 3 hours. Yesterday we placed him on lactated Ringer's at rate of 75 ML per hour, he is receiving or sodium bicarbonate tablets, his bicarbonate concentration at today's labs has improved and is up to 23. The renal profile slightly improved. Continues on Zosyn for MSSA and Klebsiella pneumonia in sputum cultures, blood cultures have been negative, patient has been afebrile, blood pressure stable, the patient continues on midodrine. Patient is awake and alert, following commands, responding appropriately, appears tired on today's exam. Denies any acute distress, his been working with physical therapy, he stood at the bedside, he is too weak to walk. Abdomen is soft, mid abdominal incision is covered with a dressing. On 10/12/2020 patient seen in follow-up in the intensive care unit. Patient is up in the recliner, breathing comfortably, she is on 20% trach collar, lung sounds are less congested and rhonchorous on today's exam. He is awake and oriented 3, denies any distress, he is currently on lactated Ringer's at a rate of 75 ML per hour, no recurrence of A. fib RVR overnight, his amiodarone is infusing at 0.5 mg/m and he will be transitioned to oral amiodarone today per cardiology, he remained in sinus rhythm. Vital signs are stable. He is on tube feedings of vital AF a rate of 90 with a goal of 90 with 125 ML free water flushes every 3 hours. His diarrhea output has decreased some, patient had 2 L in the liquid ostomy is stool output in the last 24 hours, he is on Lomotil when necessary. No abdominal pain. no nausea or vomiting no nausea or vomiting. The secretions out of the tracheostomy tube have decreased. Patient has been nothing by mouth, she would like to have a swallow evaluation to be evaluated for oral feedings. Today's chest x-ray has been reviewed showing left lower lobe infiltrate and/or pleural effusion, and improving aeration in the right lower lobe. Today's labs have been reviewed, showing white blood cell count of 12.4, hemoglobin of 9.3, electrolytes within normal limits, renal profile shows slight improvement in creatinine, down to 1.6 today. The patient is seen today 10/13/2020 in follow-up in the intensive care unit. He is currently sitting up in a recliner at the bedside. Awake and alert in no acute distress. He is maintaining good O2 saturations in the 90s on 28% trach collar. He is receiving lactated Ringer's at 75 ML's per hour. He is currently on amiodarone drip at 0.5 mg/m. He is being nourished with vital AF at 90 ML's per hour which is goal with 125 ML free water flushes every 3 hours. He still has significant amount of output and his ileostomy. 1.8 L in the past 24 hours. He's been initiated on Questran and octreotide. Chest x-ray is showing improving left lower lobe infiltrate with small effusion. Sputum was positive for Staphylococcus aureus, Klebsiella pneumoniae. He remains on Zosyn. He is status post 1 unit of packed red blood cells this admission. Current hemoglobin 8.8. Platelets 257. INR 1.4. White count 16.2. Sodium 137. Potassium 4.3. Creatinine 1.65. He is currently in sinus rhythm. He's been initiated on Lovenox 80 mg subcu every 12 hours per cardiology. The plan is to switch back to oral amiodarone. The patient is seen today 10/14/2020 and follow-up in the intensive care unit. He is currently sitting up in a chair at the bedside. Awake and alert in no acute distress. Continues to maintain good O2 saturations in the 90s on 28% trach collar. He does remain on amiodarone drip at 0.5 mg/m. Currently in sinus rhythm. Lactated Ringer's at 20 ML's per hour. Being nourished with vit al AF 90 ML's per hour which is goal. Chest x-ray today reveals chronic branch changes with a small left pleural effusion and bibasilar atelectasis/infiltrates. No significant change compared to previous. He is status post 1 unit of packed red blood cells this admission. Current hemoglobin 8.6. INR 1.4. White count 15.3. Sodium 136. Potassium 4.1. Creatinine 1.58. Remains on bronchodilators, Zosyn. Continued on octreotide and Questran with approximately 150 ML's of liquid out of the ileostomy per hour. Yesterday's modified barium swallow revealed evidence of aspiration. Recommended alternative means of nutrition. Continue PEG tube feedings Objective - Vital Signs Vital signs: Vital Signs Temp 97 F L 10/14/20 08:00 Pulse 74 10/14/20 08:08 Resp 22 10/14/20 08:00 BP 125/71 10/14/20 08:00 Pulse Ox 98 10/14/20 08:11 Intake & Output 10/13/20 10/14/20 10/14/20 18:59 06:59 18:59 Intake Total 2410.56 2122.505 220 Output Total 1725 1200 175 Balance 685.56 922.505 45 Weight 76.4 kg 76 kg Intake: IV 900 715 40 Lactated Ringers 1,000 ml 900 515 40 @ 75 mls/hr IV .[id number] WADE Rx#:[id number] Piperacillin-Tazobactam 3 200 .375 gm In Sodium Chloride 0.9% 100 ml @ 25 mls/hr IVPB Q8H WADE Rx#: [id number] Intake, IV Titration 245.56 237.505 Amount Amiodarone 450 mg In 245.56 237.505 Dextrose 5% in Water 250 ml @ 0.5 MG/MIN 16.667 mls/hr IV .Q15H WADE Rx#: [id number] Tube Feeding 1080 1080 180 Other 185 90 Output: Urine 700 300 75 Stool 1025 900 100 Other: Voiding Method Urinal Urinal # Voids 0 - Exam GENERAL EXAM: Alert, very pleasant, 80-year-old male patient on the 28% trach collar on 98%, comfortable in no apparent distress. HEAD: Normocephalic/atraumatic. EYES: Normal reaction of pupils, equal size. Conjunctiva pink, sclera white. NOSE: Clear with pink turbinates. THROAT: No erythema or exudates. NECK: Midline tracheostomy in place. No masses, no JVD, no thyroid enlargement, no adenopathy. CHEST: No chest wall deformity. Symmetrical expansion. LUNGS: Equal air entry with crackles in the left base. CVS: Regular rate and rhythm, normal S1 and S2, no gallops, no murmurs, no rubs ABDOMEN: Soft, nontender. No hepatosplenomegaly, normal bowel sounds, no guarding or rigidity. PEG tube exit site clean and dry. Midabdominal incision covered with dressing, is healing by secondary intention, sutures are in place, bed is 100% granulated wound bed. Right upper quadrant ileostomy in place connected to a Villafana drainage bag patient is having liquid yellow stool output EXTREMITIES: No clubbing, no edema, no cyanosis, 2+ pulses and upper and lower extremities. MUSCULOSKELETAL: Muscle strength and tone normal. SPINE: No scoliosis or deformity SKIN: No rashes CENTRAL NERVOUS SYSTEM: Alert and oriented -3. No focal deficits, tone is normal in all 4 extremities. PSYCHIATRIC: Alert and oriented -3. Appropriate affect. Intact judgment and insight. - Labs CBC & Chem 7: 10/14/20 03:30 10/14/20 03:32 Labs: Abnormal Lab Results - Last 24 Hours (Table) 10/13/20 10/13/20 10/14/20 Range/Units 11:21 17: 00:09 WBC (3.8-10.6) k/uL RBC (4.30-5.90) m/uL Hgb (13.0-17.5) gm/dL Hct (39.0-53.0) % RDW (11.5-15.5) % Sodium (137-145) mmol/L BUN (9-20) mg/dL Creatinine (0.66-1.25) mg/dL Glucose (74-99) mg/dL POC Glucose (mg/dL) 121 H 169 H 162 H (75-99) mg/dL 10/14/20 10/14/20 10/14/20 Range/Units 03:30 03:32 05:58 WBC 15.3 H (3.8-10.6) k/uL RBC 3.02 L (4.30-5.90) m/uL Hgb 8.6 L (13.0-17.5) gm/dL Hct 27.3 L (39.0-53.0) % RDW 18.3 H (11.5-15.5) % Sodium 136 L (137-145) mmol/L BUN 50 H (9-20) mg/dL Creatinine 1.58 H (0.66-1.25) mg/dL Glucose 143 H (74-99) mg/dL POC Glucose (mg/dL) 157 H (75-99) mg/dL Assessment and Plan Assessment: 1 Bilateral lower lobe pneumonia with sepsis. The chest x-ray shows improvement in the lower lobe pulmonary infiltrates and there are still some infiltration and small effusions bilaterally. He remains on IV Zosyn. 2 Acute on chronic hypoxic respiratory failure secondary to pneumonia and underlying COPD, currently on a 28% trach collar and the patient required tracheostomy following a prolonged intubation mechanical ventilation post cardiac surgery. 3 Bilateral lower lobe pneumonia, secondary to MSSA, and Klebsiella pneumonia (cultured in the sputum) 4 Sepsis secondary to pneumonia, currently off pressors 5 Acute on chronic kidney injury secondary to sepsis, , improving 6 Moderate-severe COPD. 7 History of triple-vessel coronary artery disease, bypass surgery on 07/18/2020 with multiple postoperative complications 8 History of tracheostomy mostly because of failure to wean. The patient has a #8 [address] tracheostomy tube in place 9 Benign essential hypertension. 10 Type 2 diabetes. 11 Dyslipidemia. 12 Chronic atrial fibrillation, on amiodarone and on anticoagulation therapy 13 History of hypothyroidism. 14 History of ileostomy on 08/02/2020. 15 Chronic anemia 16 generalized motor weakness and debility seconds above-mentioned comorbidities 17 Large volume diarrhea, out of the ileostomy, C. diff has been ruled out and initiated on octreotide and Questran Plan: The patient is seen and evaluated by Dr. Meyers Chest x-ray and labs reviewed Continue Zosyn, bronchodilators Continue with tube feeding and free water flushes Modified barium swallow report noted Continues with high output via the ileostomy Continued on octreotide and Questran We'll continue to monitor him closely here in the ICU another 24 hour We will continue to follow and make further recommendations based on his clinical status I, the cosigning physician, performed a history & physical examination of the patient. Lungs sounds with crackles in the left base. Maintaining good O2 saturations in the 90s on 28% trach collar. I discussed the assessment and plan of care with my nurse practitioner, Olga Marin. I attest to the above note as dictated by her.
[2020-10-14] MEDS: METOPROLOL TARTRATE 25 MG TAB PO SCH ×3 (09:10→21:20)
[2020-10-14] MEDS: ASPIRIN 81 MG PO SCH (09:11)
[2020-10-14] MEDS: TAMSULOSIN 0.4 MG CAP.ER.24H PO SCH (09:11)
[2020-10-14] MEDS: ENOXAPARIN 80 MG/0.8 ML SYRINGE SQ SCH ×2 (09:12→21:21)
[2020-10-14] MEDS: CHOLESTYRAMINE (WITH SUGAR) 4 GM PACKET PO SCH ×2 (09:14→17:15)
--- NOTE | 2020-10-14 09:15 | P.PN ---
Subjective Patient is seen in follow for acute kidney injury. Renal function stable. Has been voiding. Did require straight catheterization yesterday. Denies chest pain or shortness of breath. He is receiving tube feeding. Has high output from the ileostomy. Currently on amiodarone drip for A. fib. Hemodynamically stable. Vital signs are stable. General: The patient appeared well nourished and normally developed. HEENT: Tracheostomy noted. LUNGS: Breath sounds decreased. HEART: Rate and Rhythm are regular. ABDOMEN: Soft, no distention noted. Ileostomy noted. EXTREMITITES: No edema. Objective - Vital Signs Vital signs: Vital Signs Temp 97 F L 10/14/20 08:00 Pulse 74 10/14/20 08:08 Resp 22 10/14/20 08:00 BP 125/71 10/14/20 08:00 Pulse Ox 98 10/14/20 08:11 Intake & Output 10/13/20 10/14/20 10/14/20 18:59 06:59 18:59 Intake Total 2410.56 2122.505 220 Output Total 1725 1200 175 Balance 685.56 922.505 45 Weight 76.4 kg 76 kg Intake: IV 900 715 40 Lactated Ringers 1,000 ml 900 515 40 @ 75 mls/hr IV .[id number] WADE Rx#:[id number] Piperacillin-Tazobactam 3 200 .375 gm In Sodium Chloride 0.9% 100 ml @ 25 mls/hr IVPB Q8H WADE Rx#: [id number] Intake, IV Titration 245.56 237.505 Amount Amiodarone 450 mg In 245.56 237.505 Dextrose 5% in Water 250 ml @ 0.5 MG/MIN 16.667 mls/hr IV .Q15H WADE Rx#: [id number] Tube Feeding 1080 1080 180 Other 185 90 Output: Urine 700 300 75 Stool 1025 900 100 Other: Voiding Method Urinal Urinal # Voids 0 - Labs CBC & Chem 7: 10/14/20 03:30 10/14/20 03:32 Labs: Abnormal Lab Results - Last 24 Hours (Table) 10/13/20 10/13/20 10/14/20 Range/Units 11:21 17:27 00:09 WBC (3.8-10.6) k/uL RBC (4.30-5.90) m/uL Hgb (13.0-17.5) gm/dL Hct (39.0-53.0) % RDW (11.5-15.5) % Sodium (137-145) mmol/L BUN (9-20) mg/dL Creatinine (0.66-1.25) mg/dL Glucose (74-99) mg/dL POC Glucose (mg/dL) 121 H 169 H 162 H (75-99) mg/dL 10/14/20 10/14/20 10/14/20 Range/Units 03:30 03:32 05:58 WBC 15.3 H (3.8-10.6) k/uL RBC 3.02 L (4.30-5.90) m/uL Hgb 8.6 L (13.0-17.5) gm/dL Hct 27.3 L (39.0-53.0) % RDW 18.3 H (11.5-15.5) % Sodium 136 L (137-145) mmol/L BUN 50 H (9-20) mg/dL Creatinine 1.58 H (0.66-1.25) mg/dL Glucose 143 H (74-99) mg/dL POC Glucose (mg/dL) 157 H (75-99) mg/dL Assessment and Plan Plan: Assessment: 1. Acute kidney injury secondary to ATN secondary to hypotension and hemodynami c instability. Renal function improved from admission. Creatinine 1.58 today. No hydronephrosis noted on kidney ultrasound. 2. Chronic kidney disease stage III with baseline creatinine 1.2-1.5 secondary to nephrosclerosis. 3. A. fib with RVR. Maintained on IV amiodarone. 4. Hypernatremia secondary to lack of oral water intake. Resolved. 5. Failed swallow eval maintained on tube feeding. 6. Diabetes mellitus. 7. Anemia of chronic kidney disease. Maintained on Aranesp. Status post IV iron and blood transfusion this admission. 8. 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 Currently has ileostomy. 9. Sepsis secondary to pneumonia maintained on antibiotics.\ Plan: Maintain tube feeding. Continue to monitor renal function and urine output. Avoid nephrotoxins.
[2020-10-14 12:41] LABS: Glucose,Whole Blood 187 mg/dL (75-99)
--- NOTE | 2020-10-14 13:04 | PN ---
PROGRESS NOTE DATE OF SERVICE: 10/14/2020 REASON FOR FOLLOWUP: 1. Pneumonia. 2. Extensive diarrhea. INTERVAL HISTORY: The patient is currently afebrile. Patient is breathing comfortably. No nausea, no vomiting. No abdominal pain. He did have significant output from his ileostomy . PHYSICAL EXAMINATION: VITAL SIGNS: Blood pressure 125/71, pulse 74, temperature 97, he is 99% on trach collar. GENERAL DESCRIPTION: An elderly male up in the chair in no distress. RESPIRATORY SYSTEM: Unlabored breathing, clear to auscultation anteriorly. HEART S1, S2. Regular rate and rhythm. ABDOMEN: Soft, no tenderness. LABS: Hemoglobin is 8.1, white count 15.3, creatinine 1.58. DIAGNOSTIC IMPRESSION AND PLAN: Patient with pneumonia. Sputum has been positive for MSSA and Klebsiella, on Zosyn. Having significant output from his ileostomy. Antibiotic adjusted to cefepime and continue supportive care. MMODL / IJN: [id number] /
[2020-10-14 17:17] LABS: Glucose,Whole Blood 129 mg/dL (75-99)
--- NOTE | 2020-10-14 18:53 | P.PN ---
Subjective This is a pleasant 80 years old male with past medical history of coronary artery disease, COPD, diabetes mellitus, hyperlipidemia, hypertension, hy pothyroidism, coronary artery disease status post cardiac cath and stent placement. He recently underwent double coronary artery bypass grafting for his triple-vessel coronary artery disease. He was in the hospital from 07/18/20- 08/25/2020 pt has tracheostomhy and PEG tube , Information were obtained with the help of at bedside, he presents with confusion, and a lot of secretion Why he states that after been discharged from [facility] and he went to [facility] aren't states therefore one month and 5 days and then he was discharged a few days ago to senior care at [facility] on Friday, however over the weekend he has more congestion, he has weak cough and needed frequent suctioning, patient was able to talk weekly his little confused but he can't communicate through gesture, he denies pain but he is tachypneic He has tracheostomy, PEG tube and try to colostomy. Admitted with-hypotension secondary to severe sepsis secondary to pneumonia, aspiration pneumonia, acute hypoxic respiratory failure, acute kidney injury secondary to ATN, elevated sodium, increased lactic acid, elevated troponin felt to be from tachycardia. Recent history of intraperitoneal hemorrhage status post laboratory with washout and ileostomy on 08/02/2020. Tracheostomy. C. diff ruled out. 10/13/2020 History the patient developed A. fib and he was started on amiodarone drip which helped to convert him to sinus rhythm today with a plan for him to convert him to oral amiodarone, however there is concerned about his disruption, he has 2 palpating through PEG tube but he has high output ileostomy with stool is light yellow in color for example he has about 1.2 L discharge this morning. Also he is on IV fluids in the form of lingular left at 75 milliliters per hour Patient is also covered with Zosyn and water flushes lowered to 30 mL every 4 hours Also he has low urine output with bladder scan and possible straight cath if needed Mistiran is admitted today 10/14/2020 This is a pleasant 80 years old male with past tracheostomy was sent originally from senior care for respiratory distress Patient is monitored closely in the ICU. He is with short bowel syndrome and high output enterostomy about 100-150 mL/h with yellow stool. He is getting tube feeding through PEG tube and running at 19 mL/h with 30 mL water flushes and he is tolerating that well Yesterday patient underwent modified barium swallow test and he failed the test. Most likely patient with aspiration pneumonia on the top of this peritonitis and he is on antibiotics Creatinine today is 1.5 which is at baseline as he is CTD stage III and baseline creatinine 1.2-1.3 He is still on amiodarone drip for his A. fib with RVR also he is still on Lovenox 80 mg twice daily Atibiotics were adjusted from Zosyn to cefepime today under supervision of ID team Review of systems CONSTITUTIONAL: No fever, no malaise, no fatigue. HEENT: No recent visual problems or hearing problems. Denied any sore throat. CARDIOVASCULAR: No orthopnea, PND, no palpitations, no syncope. PULMONARY: No shortness of breath, no cough, no hemoptysis. GASTROINTESTINAL: No diarrhea, no nausea, no vomiting, no abdominal pain. Normoactive bowel sounds. Active Medications Generic Name Dose Route Start Last Admin Trade Name Hemantq PRN Reason Stop Dose Admin Acetaminophen 650 mg 10/13/20 22:55 10/13/20 23:01 Acetaminophen Tab 325 Mg Tab PO 650 mg Q6HR PRN Administration Fever and/ or Pain Albuterol/Ipratropium 3 ml 10/04/20 08:00 10/14/20 15:26 Ipratropium-Albuterol 3 Ml Neb INHALATION 3 ml RT-QID [facility] Administration Albuterol/Ipratropium 3 ml 10/03/20 21:23 10/03/20 21:27 Ipratropium-Albuterol 3 Ml Neb INHALATION 3 ml RT-Q2H PRN Administration Shortness Of Breath Or Wheezing Aspirin 81 mg 10/07/20 18:30 10/14/20 09:11 Aspirin 81 Mg PO 81 mg DAILY WADE Administration Atorvastatin Calcium 40 mg 10/03/20 20:00 10/13/20 22:02 Atorvastatin 40 Mg Tab PEG/G-TUBE 40 mg HS@2000 [facility] Administration Budesonide 1 mg 10/04/20 08:00 10/14/20 07:52 Budesonide 1 Mg/2 Ml Nebu INHALATION 1 mg RT-BID WADE Administration Cholestyramine Resin 4 gm 10/06/20 10:00 10/14/20 17:15 Cholestyramine (With Sugar) 4 Gm Packet PO 4 gm BID@1000,1800 [facility] Administration Darbepoetin Alex 40 mcg 10/03/20 10:00 10/10/20 12:18 Darbepoetin Alex 40 Mcg/0.4 Ml Syringe SQ 40 mcg Q7D [facility] Administration Diphenoxylate HCl/Atropine 1 each 10/12/20 12:00 10/14/20 17:14 Diphenox-Atrop 2.5-0.025 Mg 1 Each Tab PO 1 each Q6HR [facility] Administration Enoxaparin Sodium 80 mg 10/13/20 09:00 10/14/20 09:12 Enoxaparin 80 Mg/0.8 Ml Syringe SQ 80 mg Q12HR [facility] Administration Famotidine 20 mg 10/07/20 21:00 10/13/20 22:02 Famotidine 20 Mg Tab PO 20 mg HS WADE Administration Amiodarone HCl 450 mg/ 250 mls @ 16.667 mls/hr 10/12/20 23:00 10/14/20 03:59 Dextrose/Water IV 0.5 mg/min .Q15H [facility] 16.667 mls/hr Administration Protocol 0.5 MG/MIN Cefepime HCl 2 gm/ Sodium 100 mls @ 25 mls/hr 10/14/20 21:00 Chloride IVPB Q12H [facility] Insulin Aspart 0 unit 10/04/20 00:00 10/14/20 17:15 Insulin Aspart (Novolog) 100 Unit/Ml Vial SQ Not Given Q6H [facility] Protocol Levothyroxine Sodium 50 mcg 10/04/20 06:00 10/14/20 06:01 Levothyroxine 50 Mcg Tab PEG/G-TUBE 50 mcg DAILY@0600 [facility] Administration Melatonin 3 mg 10/08/20 20:46 10/13/20 22:21 Melatonin 3 Mg Tablet PO 3 mg HS PRN Administration Insomnia Metoprolol Tartrate 25 mg 10/03/20 10:00 10/14/20 17:14 Metoprolol Tartrate 25 Mg Tab PO 25 mg TID [facility] Administration Midodrine 10 mg 10/05/20 08:15 10/14/20 17:14 Midodrine 5 Mg Tab PO 10 mg Q8HR [facility] Administration Miscellaneous Information 1 each 10/09/20 18:33 Potassium Replacement Protocol 1 Each Misc MISCELLANE DAILY PRN Per Protocol Protocol Naloxone HCl 0.2 mg 10/02/20 11:26 Naloxone 0.4 Mg/Ml 1 Ml Vial IV Q2M PRN Opioid Reversal Octreotide Acetate 100 mcg 10/12/20 16:00 10/14/20 17:14 Octreotide 100 Mcg/Ml Inj SQ 100 mcg Q8HR [facility] Administration Ondansetron HCl 4 mg 10/02/20 11:26 10/11/20 03:52 Ondansetron 4 Mg/2 Ml Vial IVP 4 mg Q8HR PRN Administration Nausea And Vomiting Quetiapine Fumarate 25 mg 10/03/20 21:00 10/13/20 22:02 Quetiapine 25 Mg Tab PO 25 mg HS [facility] Administration Tamsulosin HCl 0.4 mg 10/03/20 09:30 10/14/20 09:11 Tamsulosin 0.4 Mg Cap.Er.24h PO 0.4 mg [id number] [facility]ADE Administration Objective - Vital Signs Vital signs: Vital Signs Temp 97 F L 10/14/20 08:00 Pulse 71 10/14/20 11:50 Resp 26 H 10/14/20 11:00 BP 125/82 10/14/20 11:00 Pulse Ox 92 L 10/14/20 11:00 Intake & Output 10/13/20 10/14/20 10/14/20 18:59 06:59 18:59 Intake Total 2410.56 2122.505 550 Output Total 1725 1200 950 Balance 685.56 922.505 -400 Weight 76.4 kg 76 kg Intake: IV 900 715 100 Lactated Ringers 1,000 ml 900 515 100 @ 75 mls/hr IV .[id number] [facility] Rx#:[id number] Piperacillin-Tazobactam 3 200 .375 gm In Sodium Chloride 0.9% 100 ml @ 25 mls/hr IVPB Q8H [facility] Rx#: [id number] Intake, IV Titration 245.56 237.505 Amount Amiodarone 450 mg In 245.56 237.505 Dextrose 5% in Water 250 ml @ 0.5 MG/MIN 16.667 mls/hr IV .Q15H [facility] Rx#: [id number] Tube Feeding 1080 1080 450 Other 185 90 Output: Urine 700 300 75 Stool 1025 900 875 Other: Voiding Method Urinal Urinal Urinal # Voids 0 - Exam -GENERAL: The patient is awake, he is more alert. He is well nourished. HEENT: Pupils are round and equally reacting to light. EOMI. No scleral icterus. No conjunctival pallor. Normocephalic, atraumatic. No pharyngeal erythema. No thyromegaly. CARDIOVASCULAR: S1 and S2 present. No murmurs, rubs, or gallops. -PULMONARY: Chest is clear to auscultation, no wheezing or crackles. Tachypneic. Status post tracheostomy with some secretions -ABDOMEN: Soft, nontender, nondistended, normoactive bowel sounds. No palpable organomegaly. PEG tube is in place, right colostomy. Abdominal midline wound, no purulent discharge but yellow , status post debridement by surgical team with dressing is in place MUSCULOSKELETAL: No joint swelling or deformity. EXTREMITIES: No cyanosis, clubbing, or pedal edema. NEUROLOGICAL: Gross neurological examination did not reveal any focal deficits. SKIN: No rashes. No petechiae - Labs CBC & Chem 7: 10/14/20 03:30 10/14/20 03:32 Labs: Abnormal Lab Results - Last 24 Hours (Table) 10/13/20 10/14/20 10/14/20 Range/Units 17:27 00:09 03:30 WBC 15.3 H (3.8-10.6) k/uL RBC 3.02 L (4.30-5.90) m/uL Hgb 8.6 L (13.0-17.5) gm/dL Hct 27.3 L (39.0-53.0) % RDW 18.3 H (11.5-15.5) % Sodium (137-145) mmol/L BUN (9-20) mg/dL Creatinine (0.66-1.25) mg/dL Glucose (74-99) mg/dL POC Glucose (mg/dL) 169 H 162 H (75-99) mg/dL 10/14/20 10/14/20 Range/Units 03:32 05:58 WBC (3.8-10.6) k/uL RBC (4.30-5.90) m/uL Hgb (13.0-17.5) gm/dL Hct (39.0-53.0) % RDW (11.5-15.5) % Sodium 136 L (137-145) mmol/L BUN 50 H (9-20) mg/dL Creatinine 1.58 H (0.66-1.25) mg/dL Glucose 143 H (74-99) mg/dL POC Glucose (mg/dL) 157 H (75-99) mg/dL Assessment and Plan Assessment: sepsis related to his pneumonia. Possible aspiration pneumonia Acute Hypoxic respiratory failure, status post tracheostomy on trach collar High output ileostomy Acute kidney injury on the top of chronic kidney disease, creatinine improved to baseline Hypernatremia, resolved Elevated lactic acid, improved Elevated troponin, mostly secondary to tachycardia per blocker polishing History of triple vessel coronary artery disease status post bypass surgery on 07/18/2020 Atrial fibrillation on Eliquis (on hold), currently covered with Lovenox Stage II sacral pressure ulcer Recent history of intraperitoneal hemorrhage status post exploratory laparotomy with washout and ileostomy on 08/02/2020 Hypothyroidism Moderate to severe COPD, with no acute exacerbation Remote history of nicotine dependence Chronic kidney disease stage II Hypertension Hyperlipidemia Type 2 diabetes mellitus No code Plan: This is a pleasant 80 years old male who presents with dyspnea and hypotension possible secondary to aspiration pneumonia. on cefepime. Also he has high output ileostomy, continue with tube feeding and water flushes continue with IV fluid. At [facility] and follow-up stool output. Cardiology on the case for his A. fib with RVR, currently with amiodarone Pulmonary and cardiology consult, continue with IV fluids, continue with oxygen as needed. Continue with amiodarone drip and metoprolol. 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 Continue same treatment. Continue with symptomatic treatment. Resume home medication if patient able to take them. Monitor lytes and vitals. DVT and GI prophylaxis. Further recommendations depends on the clinical course of the patient DVT prophylaxis: Hold Eliquis and continue with Lovenox. Continue with mechanical GI Prophylaxis: Protonix Prognosis is guarded
--- NOTE | 2020-10-14 19:37 | P.PN ---
Subjective Progress Note Date: 10/14/20 CHIEF COMPLAINT: Ischemic bowel HISTORY OF PRESENT ILLNESS: The patient is a 80-year-old male with complex surgical history of ischemic small bowel status post enterectomy followed by intra-abdominal hemorrhage with reexploration and open abdomen. He has an ileostomy. He has high outputs from his ileostomy. Despite adjustment from dietitian including tube feeds, his outputs exceed his input from his tube feeds. He is in the intensive care unit. Tube feeds at 90 ml/hr. ROS: No reports of nausea and vomiting. No fevers or chills. No new chest pain. PHYSICAL EXAM: VITAL SIGNS: Reviewed CONSTITUTIONAL: Well developed and in no acute distress. EYES: Conjuctivae without sclera icterus. Extraocular movements grossly intact. HEAD, EARS, NOSE, THROAT: Moist buccal mucosa. Head is atraumatic, normocephalic. Hears conversational speech. No nasal drainage. NECK: Supple. No thyroidomegaly. Has trach. RESPIRATORY: Non-labored respirations and equal bilateral excursions. CARDIOVASCULAR: Palpable 2+ radial pulses. ABDOMEN: No peritonitis. Ileostomy patent and functioning. Ileostomy attached to malagon due to high outputs. MUSCULOSKELETAL: No clubbing. No cyanosis. SKIN: Good skin turgor. Well perfused. NEUROLOGIC: Cranial nerves II through XII grossly intact. No focal or lat eralizing signs. PSYCH: Appropriate affect. Alert and oriented to person, place and time. CLINICAL LABS: White blood cell count elevated at 15.3, hemoglobin 8.6. Creatinine elevated 1.58. ASSESSMENT: 1. Ischemic bowel 2. High output ileostomy 3. Short bowel syndrome 4. Sepsis PLAN: 1. Recommend tube feeds adjustment for high output ileostomy. 2. Recommend somatostatin for high output ileostomy 3. Clinical picture is short-bowel syndrome with high morbidity Objective - Vital Signs Vital signs: Vital Signs Temp 97.3 F L 10/14/20 16:00 Pulse 70 10/14/20 19:00 Resp 22 10/14/20 19:00 BP 133/83 10/14/20 19:00 Pulse Ox 97 10/14/20 19:00 Intake & Output 10/14/20 10/14/20 10/15/20 06:59 18:59 06:59 Intake Total 2122.505 1430 Output Total 1200 1715 425 Balance 922.505 -285 -425 Weight 76 kg Intake: IV 715 260 0.9 NACL 80 Lactated Ringers 1,000 ml 515 180 @ 75 mls/hr IV .[id number] [facility] Rx#:[id number] Piperacillin-Tazobactam 3 200 .375 gm In Sodium Chloride 0.9% 100 ml @ 25 mls/hr IVPB Q8H [facility] Rx#: [id number] Intake, IV Titration 237.505 Amount Amiodarone 450 mg In 237.505 Dextrose 5% in Water 250 ml @ 0.5 MG/MIN 16.667 mls/hr IV .Q15H [facility] Rx#: [id number] Tube Feeding 1080 1170 Other 90 Output: Urine 300 200 425 Stool 900 1515 Other: Voiding Method Urinal Urinal - Labs CBC & Chem 7: 11/04/20 03:00 11/04/20 03:00 Labs: Abnormal Lab Results - Last 24 Hours (Table) 10/14/20 10/14/20 10/14/20 Range/Units 00:09 03:30 03:32 WBC 15.3 H (3.8-10.6) k/uL RBC 3.02 L (4.30-5.90) m/uL Hgb 8.6 L (13.0-17.5) gm/dL Hct 27.3 L (39.0-53.0) % RDW 18.3 H (11.5-15.5) % Sodium 136 L (137-145) mmol/L BUN 50 H (9-20) mg/dL Creatinine 1.58 H (0.66-1.25) mg/dL Glucose 143 H (74-99) mg/dL POC Glucose (mg/dL) 162 H (75-99) mg/dL 10/14/20 10/14/20 10/14/20 Range/Units 05:58 12:40 17:15 WBC (3.8-10.6) k/uL RBC (4.30-5.90) m/uL Hgb (13.0-17.5) gm/dL Hct (39.0-53.0) % RDW (11.5-15.5) % Sodium (137-145) mmol/L BUN (9-20) mg/dL Creatinine (0.66-1.25) mg/dL Glucose (74-99) mg/dL POC Glucose (mg/dL) 157 H 187 H 129 H (75-99) mg/dL
[2020-10-14] MEDS: FAMOTIDINE 20 MG TAB PO SCH (21:19)
[2020-10-14] MEDS: CEFEPIME 2 GM in SODIUM CHLORIDE 0.9% 100 ML IVPB SCH (21:19)
[2020-10-14] MEDS: ACETAMINOPHEN TAB 325 MG TAB PO PRN (21:20)
[2020-10-14] MEDS: ATORVASTATIN 40 MG TAB PEG/G-TUBE SCH (21:20)
[2020-10-14] MEDS: MELATONIN 3 MG TABLET PO PRN (21:20)
[2020-10-14] MEDS: QUEtiapine 25 MG TAB PO SCH (21:21)
[2020-10-15 00:05] LABS: Glucose,Whole Blood 166 mg/dL (75-99)
[2020-10-15] MEDS: DIPHENOX-ATROP 2.5-0.025 MG 1 EACH TAB PO SCH ×5 (00:09→23:52)
[2020-10-15] MEDS: INSULIN ASPART (NovoLOG) 100 UNIT/ML VIAL SQ SCH ×5 (00:09→23:53)
[2020-10-15] MEDS: MIDODRINE 5 MG TAB PO SCH ×4 (00:10→23:52)
[2020-10-15] MEDS: OCTREOTIDE 100 MCG/ML INJ SQ SCH ×4 (00:10→23:52)
[2020-10-15 04:07] LABS: Anisocytosis Slight; Basophils # (A) 0.1 k/uL (0-0.2); Basophils % (A) 1 %; Eosinophils # (A) 0.1 k/uL (0-0.7); Eosinophils % (A) 1 %; HCT 26.9 % (39.0-53.0); HGB 8.5 gm/dL (13.0-17.5); Hypochromasia Slight; Lymphocytes % (A) 6 %; MCH 28.1 pg (25.0-35.0); MCHC 31.5 g/dL (31.0-37.0); MCV 89.2 fL (80.0-100.0); Mean Platelet Volume 7.2; Monocytes # (A) 0.7 k/uL (0-1.0); Monocytes % (A) 4 %; Neutrophils # (A) 14.1 k/uL (1.3-7.7); Neutrophils % (A) 88 %; Platelet Count 260 k/uL (150-450); Poikilocytosis Slight; RBC 3.01 m/uL (4.30-5.90); RDW 18.6 % (11.5-15.5)
[2020-10-15 04:38] LABS: Albumin 2.6 g/dL (3.5-5.0); Calcium 8.8 mg/dL (8.4-10.2); Potassium 4.2 mmol/L (3.5-5.1); Total Bilirubin 0.5 mg/dL (0.2-1.3); Total Protein 5.5 g/dL (6.3-8.2)
[2020-10-15 05:53] LABS: Glucose,Whole Blood 156 mg/dL (75-99)
[2020-10-15] MEDS: LEVOTHYROXINE 50 MCG TAB PEG/G-TUBE SCH (05:55)
--- NOTE | 2020-10-15 06:44 | XR ---
EXAMINATION TYPE: XR chest 1V portable DATE OF EXAM: 10/15/2020 CLINICAL HISTORY: Difficulty breathing progress study. TECHNIQUE: Single AP portable semiupright view of the chest is obtained. COMPARISON: Chest x-ray from one day earlier FINDINGS: Stable tracheostomy tube and right-sided PICC line terminating in brachiocephalic vein. Overlying sternal wires and mediastinal clips and left atrial appendage clip are all redemonstrated. Persistent bibasilar opacities on background chronic parenchymal changes. Cardiac silhouette size is stable and upper limits of normal. Osseous structures are intact. IMPRESSION: Chronic parenchymal changes with small left greater than right pleural effusions and biba silar atelectasis and/or infiltrate are all redemonstrated. No significant change from one day debbie verma
[2020-10-15] MEDS: AMIODARONE 450 MG in DEXTROSE 5% IN WATER 250 ML IV SCH ×4 (07:01→20:35)
[2020-10-15] MEDS: BUDESONIDE 1 MG/2 ML NEBU INHALATION SCH ×2 (07:23→21:06)
[2020-10-15] MEDS: IPRATROPIUM-ALBUTEROL 3 ML NEB INHALATION SCH ×4 (07:23→21:06)
[2020-10-15] MEDS: CEFEPIME 2 GM in SODIUM CHLORIDE 0.9% 100 ML IVPB SCH ×2 (09:14→20:35)
[2020-10-15] MEDS: METOPROLOL TARTRATE 25 MG TAB PO SCH ×3 (09:15→21:27)
[2020-10-15] MEDS: ASPIRIN 81 MG PO SCH (09:15)
[2020-10-15] MEDS: TAMSULOSIN 0.4 MG CAP.ER.24H PO SCH (09:15)
[2020-10-15] MEDS: CHOLESTYRAMINE (WITH SUGAR) 4 GM PACKET PO SCH ×2 (09:16→16:55)
[2020-10-15] MEDS: ENOXAPARIN 80 MG/0.8 ML SYRINGE SQ SCH ×2 (09:16→21:27)
--- NOTE | 2020-10-15 09:42 | P.PN ---
Subjective Patient is seen in follow for acute kidney injury. Renal function stable. Has been voiding. Denies chest pain or shortness of breath. He is receiving tube feeding. Has high output from the ileostomy. Currently on amiodarone drip for A. fib. Hemodynamically stable. No changes overnight. Vital signs are stable. General: The patient appeared well nourished and normally developed. HEENT: Tracheostomy noted. LUNGS: Breath sounds decreased. HEART: Rate and Rhythm are regular. ABDOMEN: Soft, no distention noted. Ileostomy noted. EXTREMITITES: No edema. Objective - Vital Signs Vital signs: Vital Signs Temp 97.3 F L 10/15/20 08:00 Pulse 74 10/15/20 09:00 Resp 26 H 10/15/20 09:00 BP 124/75 10/15/20 09:00 Pulse Ox 97 10/15/20 09:00 Intake & Output 10/14/20 10/15/20 10/15/20 18:59 06:59 18:59 Intake Total 1680 1470 310 Output Total 1715 1300 825 Balance -35 170 -515 Weight 78.3 kg Intake: IV 260 300 40 0.9 NACL 80 200 40 Cefepime 2 gm In Sodium 100 Chloride 0.9% 100 ml @ 25 mls/hr IVPB Q12H [facility] Rx# :[id number] Lactated Ringers 1,000 ml 180 @ 75 mls/hr IV .[id number] [facility] Rx#:[id number] Intake, IV Titration 250 Amount Amiodarone 450 mg In 250 Dextrose 5% in Water 250 ml @ 0.5 MG/MIN 16.667 mls/hr IV .Q15H [facility] Rx#: [id number] Tube Feeding 1170 1080 270 Other 90 Output: Urine 200 725 150 Stool 1515 575 375 Other 300 Other: Voiding Method Urinal Urinal Urinal - Labs CBC & Chem 7: 10/15/20 03:31 10/15/20 03:31 Labs: Abnormal Lab Results - Last 24 Hours (Table) 10/14/20 10/14/20 10/15/20 Range/Units 12:40 17:15 00:04 WBC (3.8-10.6) k/uL RBC (4.30-5.90) m/uL Hgb (13.0-17.5) gm/dL Hct (39.0-53.0) % RDW (11.5-15.5) % Neutrophils # (1.3-7.7) k/uL Sodium (137-145) mmol/L BUN (9-20) mg/dL Creatinine (0.66-1.25) mg/dL Glucose (74-99) mg/dL POC Glucose (mg/dL) 187 H 129 H 166 H (75-99) mg/dL Total Protein (6.3-8.2) g/dL Albumin (3.5-5.0) g/dL 10/15/20 10/15/20 10/15/20 Range/Units 03:31 03:31 05:51 WBC 16.0 H (3.8-10.6) k/uL RBC 3.01 L (4.30-5.90) m/uL Hgb 8.5 L (13.0-17.5) gm/dL Hct 26.9 L (39.0-53.0) % RDW 18.6 H (11.5-15.5) % Neutrophils # 14.1 H (1.3-7.7) k/uL Sodium 136 L (137-145) mmol/L BUN 50 H (9-20) mg/dL Creatinine 1.43 H (0.66-1.25) mg/dL Glucose 138 H (74-99) mg/dL POC Glucose (mg/dL) 156 H (75-99) mg/dL Total Protein 5.5 L (6.3-8.2) g/dL Albumin 2.6 L (3.5-5.0) g/dL Assessment and Plan Plan: Assessment: 1. Acute kidney injury secondary to ATN secondary to hypotension and hemodynamic instability. Renal function improved from admission. Creatinine 1.43 today. No hydronephrosis noted on kidney ultrasound. 2. Chronic kidney disease stage III with baseline creatinine 1.2-1.5 secondary to nephrosclerosis. 3. A. fib with RVR. Maintained on IV amiodarone. 4. Hypernatremia secondary to lack of oral water intake. Resolved. 5. Failed swallow eval maintained on tube feeding. 6. Diabetes mellitus. 7. Anemia of chronic kidney disease. Maintained on Aranesp. Status post IV iron and blood transfusion this admission. 8. 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 Currently has ileostomy. 9. Sepsis secondary to pneumonia maintained on antibiotics. Plan: Maintain tube feeding. Continue to monitor renal function and urine output. Avoid nephrotoxins.
--- NOTE | 2020-10-15 09:47 | PN ---
PROGRESS NOTE Mr. Tinoco is a 75-year-old male with a history of coronary artery disease status post coronary artery bypass grafting with a complicated postoperative course, who was admitted with symptoms of pneumonia, respiratory failure. He is awake, alert. He is back in sinus mechanism. Sitting up in the chair. He continues to have large output from his ileostomy. He denies any chest pain. No dizziness. Hemodynamically, he is stable otherwise. He continued to be on IV amiodarone as well as the subcu Lovenox because of the question of absorption. He continues to be in addition to the IV amiodarone and the subcu Lovenox, on aspirin, Lipitor 40 mg daily, and metoprolol tartrate 25 mg 3 times a day. PHYSICAL EXAMINATION: Blood pressure 120/70 with a heart rate in 70s. Afebrile. Lungs with a few crackles at the bases. Heart: Regular rate and rhythm, S1, S2. No S3. No rub. ABDOMEN: Soft with ileostomy in place. EXTREMITIES: Trace to 1+ edema. LAB DATA: BUN and creatinine 50 and 1.43, potassium 4.2. His hemoglobin is 8.5, white blood cell of 16,000. His chest x-ray shows an evidence of an effusion with mild atelectasis. IMPRESSION: 1. Respiratory failure with pneumonia. 2. Status post coronary artery bypass grafting with complicated postoperative course. 3. Paroxysmal atrial fibrillation. 4. Small bowel syndrome. 5. Chronic kidney disease, stable. 6. History of hypertension. 7. Hyperlipidemia. 8. Anemia. RECOMMENDATION: We will continue present therapy. We will continue on the IV amiodarone as well as the subcu Lovenox. Awaiting the improvement in his ileostomy discharge. In the meantime, will continue free water and increase his level of activity. Depending on his progress, further recommendations will be made. MMODL / IJN: [id number] /
[2020-10-15] MEDS: ACETAMINOPHEN TAB 325 MG TAB PO PRN ×2 (11:00→21:27)
[2020-10-15 11:52] LABS: Glucose,Whole Blood 169 mg/dL (75-99)
--- NOTE | 2020-10-15 12:25 | P.PN ---
Subjective Progress Note Date: 10/15/20 Principal diagnosis: Acute on chronic hypoxic respiratory failure secondary to left lower lobe pneumonia and sepsis This is a 80-year-old white male familiar to my service, in July 2020, patient underwent elective coronary artery bypass grafting. He had a very complicated postoperative course, patient required multiple abdominal surgeries, multiple intubations, extubations, and the intubations, patient was a failure to wean, and he had multiple abdominal surgeries during his stay. Patient underwent tracheostomy, PEG tube placement, and we were able to transfer the pa maty to an extended care facility. He was at the extended care facility until about a week ago, his tracheostomy was capped, and he was transferred to [facility]. Patient has been noticing increased cough, increased shortness of breath, and significant purulent secretions from the tracheostomy tube when uncapped. O2 saturation was dipping down into the 50s and in the ER he had a saturation of 86% on 15 L high flow nasal cannula. Patient was also noted to have leukocytosis, hemoglobin was low, his troponin was slightly elevated, blood pressure was noted to be marginally low, patient was admitted initially to the cardiac floor, however supposedly he was noted to have blood pressure in the 70s systolic. Patient did receive multiple fluid boluses in the ER over 3 L were given, and we were notified about the patient on the floor having low blood pressure, I recommended transferred to the ICU planning to start the patient on norepinephrine. However over the last 12 hours in the ICU, his blood pressure has been stable patient did not require placement on any pressors. His beta blockers had been on hold because of low blood pressure, and he is maintained on amiodarone. His pro-calcitonin level was noted to be 2.60. And his chest x-ray showed left lower lobe atelectasis, suspect left lower lobe pneumonia. And he had small pleural effusions noted more so than right. Going back to his previous hospital admission, patient did have left lower lobe pneumonia and he did have left pleural effusion requiring thoracentesis once or twice. Cultures previously from the sputum were positive for Pseudomonas fluorescence/putida, sensitive to Zosyn and Levaquin and meropenem. Also sensitive to cefepime. Considering the patient's presentation with hypotension, shortness of breath, cough, abnormal chest x-ray, hypoxia, and considering his recent clinical history, we were asked to see him on consultation Patient was reevaluated today on 10/04/2020, patient remains in the ICU, he is on trach collar a 55%, patient went into atrial fibrillation with RVR yesterday, and he went on amiodarone at 1 mg/m, he also received 1 unit of packed RBCs for hemoglobin of 6.7, patient converted to sinus rhythm. Remains in sinus rhythm, patient is receiving tube feeds/Nepro at 65/65. He is also receiving free water. Chest x-ray is showing minimal improvement in the left lower lobe consolidation, clinically the patient is feeling better, he is empirically on antibiotics for healthcare acquired pneumonia/Zosyn. Previous sputum cultures were positive for Pseudomonas, hence his Zosyn was chosen as the drug of choice. CBC today showed WBC 7.2 hemoglobin 6.7, hence a unit of blood was given. Electrolytes showed low sodium but improving today is 148 from 150 to yesterday. BUN is 108 creatinine 3.4 to about the same as yesterday. Reevaluated today on 10/05/2020, patient remains in the ICU, remains on 55% trach collar. Off norepinephrine, IV fluids at KVO, tolerating enteral feeding via PEG tube, patient continues to have significant amount of tracheal secretions, he is now on Zosyn and vancomycin, as well as Zyvox. His cultures from the sputum are showing MSSA, hence we will discontinue vancomycin, keep him on Zosyn, and infectious disease to address his Zyvox. Patient may not even require Zyvox considering the culture is positive for MSSA. Chest x-ray is showing bilateral pleural effusions/small, renal functioning is slightly improved over the last 24 hours. Patient was switched to oral amiodarone, and he seems to be doing quite well, in sinus rhythm. Reevaluated today on 10/06/2020, patient remains in the ICU, remains on trach collar at 28%, sputum came back positive for Klebsiella and MSSA. Patient is on Zosyn and Zyvox. Remains on a small dose of norepinephrine at 0.01 mcg/kg/m, remains on enteral feeding/Nepro at 65 ML per hour, also receiving Questran. Patient continues to have significant output from his ileostomy. Patient is feeling better overall compared to how he felt on presentation. CBC today is relatively normal WBC count is 7.1 hemoglobin is 8.7, electrolytes are normal BUN is 93 creatinine is 3.17, improving over the last couple of days. Blood cultures remain negative. Again his sputum cultures are positive for MSSA and Klebsiella pneumonia. Reevaluated today on 10/07/2020, patient remains in the ICU, remains on trach collar at 28%, receiving antibiotics for his Klebsiella and MSSA pneumonia. Patient is only on Zosyn, and his Zyvox was discontinued since it was initially started by infectious disease for possible MRSA. Patient is requiring intermittently small doses of norepinephrine, clinically however the patient is much better compared to how he felt when he came in. He is in no distress, this morning he is off norepinephrine, but he didn't require norepinephrine last night, hence I will not transfer the patient out of the ICU yet. Chest x-ray continues to show by basilar atelectasis, possible left lower lobe consolidation which is chronic. Secretions from the tracheostomy are less and less. Renal profile is improving, creatinine is down to 2.9. CBC is normal. Electrolytes are normal. On 10/08/2020 the patient is being seen in follow-up in the intensive unit. His , comfortable and currently is on a trach collar with an FiO2 of 28%. The chest x-ray shows small bilateral pleural effusions and there is adequate expansion of both lungs and a orotracheal tube is in a good location. Note that he had MSSA and Klebsiella in his sputum and patient is currently on IV antibiotics and he is receiving IV Zosyn. Patient continues to have copious amount of secretions through his tracheostomy tube and the patient has a #[address] trache[address] tube in place and he is requiring suctioning every 2 hours at least. He still has a lot of rhonchi He is currently off pressors. He is in normal sinus rhythm. He has also PEG tube for enteral feeding and nutritional support. PEG tube is in place and the patient is on Nepro at the rate of 75 mL an hour. He continues to have output through his ileostomy bag. The patient has significant amount of output through his ileostomy was in the order of every 12 hours. No abdominal distention. No signs of any respiratory distress. The creatinine is improving and is currently down to 2.5 and the patient's hemoglobin is at 8.4. No fever. No other issues overnight. Villafana cath is also in place. He is able to communicate. However he is still profoundly weak/in lower extremities. He is able to raise his arms against gravity. On 10/09/2020 patient seen in follow-up in the intensive care unit. Patient is awake and alert, is following commands, moving all 4 extremities, no signs of any respiratory distress, he is breathing comfortably, on 28% trach collar. His pulse ox is 98%. Still having some secretions from his tracheostomy, related he is on Zosyn for antibiotic coverage. Remains on nebulized bronchodilators, hemodynamically patient has been stable. No requiring any vasopressor support for last 48 hours. No acute events overnight. His sputum cultures were positive for MSSA and Klebsiella pneumonia. Today's labs have been reviewed, normal white count at 8.5, hemoglobin is 9.0, sodium is 137, potassium is 3.7, chloride is 110, B1 is 67, creatinine is 2.18. Patient has been nothing by mouth and has been receiving nutrition in the form of Nepro at 65 with a goal of 65. Patient has had significant diarrhea, liquid yellow output from his ileostomy. No complaints of chest pain. He is in sinus mechanism with a controlled rate. Chest x-ray shows basilar infiltrates and atelectasis with small effusions. On 10/10/2020 patient seen in follow-up in the intensive care unit. He is awake and alert, oriented 3, his calm and cooperative, he denies any acute distress, he still has significant amount of secretions that are being suctioned from the tracheostomy tube, he remains on 20% trach collar. He remains on antibiotics, his sputum cultures were positive for MSSA and Klebsiella pneumonia, he is on Zosyn, he has had no fever or chills. Lung sounds reveal minimal rhonchi, less congested and wheezy on today's exam compared a few days ago. Patient is tolerating tube feedings, he remains strict nothing by mouth, he is on Nepro at a rate of 65 ML per hour with a goal of 65 with 125 ML free water flushes every 3 hours. Abdomen is soft, ileostomy is still producing copious amount of liquid yellow diarrhea, which will be sent for C. diff. There has been a total of 2.5 L in stool output in the last 24 hours. Today's labs have been reviewed, white blood cell count is 8.9, hemoglobin is 8.9, CO2 is 18, sodium is 138, potassium is 3.9, chloride is 110, renal profile is improving despite the diarrhea, with BUN of 63, creatinine is 1.94. Patient is working with physical therapy and yesterday he apparently was up in the chair with assistance, tolerated activity well. On 10/11/2020 patient seen in follow-up in intensive care unit, she remains on 28% trach collar, the pulse ox of 97%, vital signs have been stable, his been afebrile, he did have a run of A. fib with RVR this morning and was restarted on amiodarone drip and was given 150 mg bolus of amiodarone. He is currently back in sinus mechanism with a controlled rate, receiving hydration with LR at 75 ML per hour, he continues to have large volume diarrhea out of his ileostomy, he had to 3.3 L in stool output in last 24 hours, C. diff was negative. tube feedings have been switched to vital AF currently running at 75 ML per hour, patient is getting free water flushes of 125 ML every 3 hours. Yesterday we placed him on lactated Ringer's at rate of 75 ML per hour, he is receiving or sodium bicarbonate tablets, his bicarbonate concentration at today's labs has improved and is up to 23. The renal profile slightly improved. Continues on Zosyn for MSSA and Klebsiella pneumonia in sputum cultures, blood cultures have been negative, patient has been afebrile, blood pressure stable, the patient continues on midodrine. Patient is awake and alert, following commands, responding appropriately, appears tired on today's exam. Denies any acute distress, his been working with physical therapy, he stood at the bedside, he is too weak to walk. Abdomen is soft, mid abdominal incision is covered with a dressing. On 10/12/2020 patient seen in follow-up in the intensive care unit. Patient is up in the recliner, breathing comfortably, she is on 20% trach collar, lung sounds are less congested and rhonchorous on today's exam. He is awake and oriented 3, denies any distress, he is currently on lactated Ringer's at a rate of 75 ML per hour, no recurrence of A. fib RVR overnight, his amiodarone is infusing at 0.5 mg/m and he will be transitioned to oral amiodarone today per cardiology, he remained in sinus rhythm. Vital signs are stable. He is on tube feedings of vital AF a rate of 90 with a goal of 90 with 125 ML free water flushes every 3 hours. His diarrhea output has decreased some, patient had 2 L in the liquid ostomy is stool output in the last 24 hours, he is on Lomotil when necessary. No abdominal pain. no nausea or vomiting no nausea or vomiting. The secretions out of the tracheostomy tube have decreased. Patient has been nothing by mouth, she would like to have a swallow evaluation to be evaluated for oral feedings. Today's chest x-ray has been reviewed showing left lower lobe infiltrate and/or pleural effusion, and improving aeration in the right lower lobe. Today's labs have been reviewed, showing white blood cell count of 12.4, hemoglobin of 9.3, electrolytes within normal limits, renal profile shows slight improvement in creatinine, down to 1.6 today. The patient is seen today 10/13/2020 in follow-up in the intensive care unit. He is currently sitting up in a recliner at the bedside. Awake and alert in no acute distress. He is maintaining good O2 saturations in the 90s on 28% trach collar. He is receiving lactated Ringer's at 75 ML's per hour. He is currently on amiodarone drip at 0.5 mg/m. He is being nourished with vital AF at 90 ML's per hour which is goal with 125 ML free water flushes every 3 hours. He still has significant amount of output and his ileostomy. 1.8 L in the past 24 hours. He's been initiated on Questran and octreotide. Chest x-ray is showing improving left lower lobe infiltrate with small effusion. Sputum was positive for Staphylococcus aureus, Klebsiella pneumoniae. He remains on Zosyn. He is status post 1 unit of packed red blood cells this admission. Current hemoglobin 8.8. Platelets 257. INR 1.4. White count 16.2. Sodium 137. Potassium 4.3. Creatinine 1.65. He is currently in sinus rhythm. He's been initiated on Lovenox 80 mg subcu every 12 hours per cardiology. The plan is to switch back to oral amiodarone. The patient is seen today 10/14/2020 and follow-up in the intensive care unit. He is currently sitting up in a chair at the bedside. Awake and alert in no acute distress. Continues to maintain good O2 saturations in the 90s on 28% trach collar. He does remain on amiodarone drip at 0.5 mg/m. Currently in sinus rhythm. Lactated Ringer's at 20 ML's per hour. Being nourished with vit al AF 90 ML's per hour which is goal. Chest x-ray today reveals chronic branch changes with a small left pleural effusion and bibasilar atelectasis/infiltrates. No significant change compared to previous. He is status post 1 unit of packed red blood cells this admission. Current hemoglobin 8.6. INR 1.4. White count 15.3. Sodium 136. Potassium 4.1. Creatinine 1.58. Remains on bronchodilators, Zosyn. Continued on octreotide and Questran with approximately 150 ML's of liquid out of the ileostomy per hour. Yesterday's modified barium swallow revealed evidence of aspiration. Recommended alternative means of nutrition. Continue PEG tube feedings. The patient is seen today 10/15/2020 in follow-up in the intensive care unit. He sitting up in a recliner at the bedside. Awake and alert in no acute distress. Continued on 28% FiO2 via trach collar. Maintaining O2 saturations in the 90s. He is continued on cefepime and bronchodilators. Chest x-ray reveals chronic parenchymal changes with small left greater than right pleural effusions and bibasilar atelectasis/infiltrate. He remains on amiodarone at 0.5 mg/m. No other IV fluids. He is still having high output of the ileostomy 150 ML's per hour. Continued on Questran and Sandostatin without much improvement. White count 16.0. Hemoglobin 8.5. Sodium 136. Potassium 4.2. Creatinine 1.43. Glucose 138. Albumin 2.6. He remains on Vital AF 1.2 at 90 ML's per hour. Objective - Vital Signs Vital signs: Vital Signs Temp 97.3 F L 10/15/20 08:00 Pulse 68 10/15/20 11:30 Resp 26 H 10/15/20 12:00 BP 126/65 10/15/20 11:00 Pulse Ox 99 10/15/20 11:00 Intake & Output 10/14/20 10/15/20 10/15/20 18:59 06:59 18:59 Intake Total 1680 1470 640 Output Total 1715 1300 1555 Balance -35 170 -915 Weight 78.3 kg Intake: IV 260 300 100 0.9 NACL 80 200 100 Cefepime 2 gm In Sodium 100 Chloride 0.9% 100 ml @ 25 mls/hr IVPB Q12H [facility] Rx# :[id number] Lactated Ringers 1,000 ml 180 @ 75 mls/hr IV .[id number] WADE Rx#:[id number] Intake, IV Titration 250 Amount Amiodarone 450 mg In 250 Dextrose 5% in Water 250 ml @ 0.5 MG/MIN 16.667 mls/hr IV .Q15H [facility]ADE Rx#: [id number] Tube Feeding 1170 1080 540 Other 90 Output: Urine 200 725 400 Stool 1515 575 855 Other 300 Other: Voiding Method Urinal Urinal Urinal - Exam GENERAL EXAM: Alert, very pleasant, 80-year-old male patient on the 28% trach collar, comfortable in no apparent distress. HEAD: Normocephalic/atraumatic. EYES: Normal reaction of pupils, equal size. Conjunctiva pink, sclera white. NOSE: Clear with pink turbinates. THROAT: No erythema or exudates. NECK: Midline tracheostomy in place. No masses, no JVD, no thyroid enlargement, no adenopathy. CHEST: No chest wall deformity. Symmetrical expansion. LUNGS: Equal air entry with crackles in the left base. CVS: Regular rate and rhythm, normal S1 and S2, no gallops, no murmurs, no rubs ABDOMEN: Soft, nontender. No hepatosplenomegaly, normal bowel sounds, no guarding or rigidity. PEG tube exit site clean and dry. Midabdominal incision covered with dressing, is healing by secondary intention, sutures are in place, bed is 100% granulated wound bed. Right upper quadrant ileostomy in place connected to a Villafana drainage bag patient is having liquid yellow stool output EXTREMITIES: No clubbing, no edema, no cyanosis, 2+ pulses and upper and lower extremities. MUSCULOSKELETAL: Muscle strength and tone normal. SPINE: No scoliosis or deformity SKIN: No rashes CENTRAL NERVOUS SYSTEM: Alert and oriented -3. No focal deficits, tone is normal in all 4 extremities. PSYCHIATRIC: Alert and oriented -3. Appropriate affect. Intact judgment and insight. - Labs CBC & Chem 7: 10/15/20 03:31 10/15/20 03:31 Labs: Abnormal Lab Results - Last 24 Hours (Table) 10/14/20 10/14/20 10/15/20 Range/Units 12:40 17:15 00:04 WBC (3.8-10.6) k/uL RBC (4.30-5.90) m/uL Hgb (13.0-17.5) gm/dL Hct (39.0-53.0) % RDW (11.5-15.5) % Neutrophils # (1.3-7.7) k/uL Sodium (137-145) mmol/L BUN (9-20) mg/dL Creatinine (0.66-1.25) mg/dL Glucose (74-99) mg/dL POC Glucose (mg/dL) 187 H 129 H 166 H (75-99) mg/dL Total Protein (6.3-8.2) g/dL Albumin (3.5-5.0) g/dL 10/15/20 10/15/20 10/15/20 Range/Units 03:31 03:31 05:51 WBC 16.0 H (3.8-10.6) k/uL RBC 3.01 L (4.30-5.90) m/uL Hgb 8.5 L (13.0-17.5) gm/dL Hct 26.9 L (39.0-53.0) % RDW 18.6 H (11.5-15.5) % Neutrophils # 14.1 H (1.3-7.7) k/uL Sodium 136 L (137-145) mmol/L BUN 50 H (9-20) mg/dL Creatinine 1.43 H (0.66-1.25) mg/dL Glucose 138 H (74-99) mg/dL POC Glucose (mg/dL) 156 H (75-99) mg/dL Total Protein 5.5 L (6.3-8.2) g/dL Albumin 2.6 L (3.5-5.0) g/dL 10/15/20 Range/Units 11:51 WBC (3.8-10.6) k/uL RBC (4.30-5.90) m/uL Hgb (13.0-17.5) gm/dL Hct (39.0-53.0) % RDW (11.5-15.5) % Neutrophils # (1.3-7.7) k/uL Sodium (137-145) mmol/L BUN (9-20) mg/dL Creatinine (0.66-1.25) mg/dL Glucose (74-99) mg/dL POC Glucose (mg/dL) 169 H (75-99) mg/dL Total Protein (6.3-8.2) g/dL Albumin (3.5-5.0) g/dL Assessment and Plan Assessment: 1 Bilateral lower lobe pneumonia with sepsis. The chest x-ray shows improvement in the lower lobe pulmonary infiltrates and there are still some infiltration and small effusions bilaterally. He remains on IV cefepime. 2 Acute on chronic hypoxic respiratory failure secondary to pneumonia and underlying COPD, currently on a 28% trach collar and the patient required tracheostomy following a prolonged intubation mechanical ventilation post cardiac surgery. 3 Bilateral lower lobe pneumonia, secondary to MSSA, and Klebsiella pneumonia (cultured in the sputum) 4 Sepsis secondary to pneumonia, currently off pressors 5 Acute on chronic kidney injury secondary to sepsis, , improving, current creatinine 1.43 6 Moderate-severe COPD. 7 History of triple-vessel coronary artery disease, bypass surgery on 07/18/2020 with multiple postoperative complications 8 History of tracheostomy mostly because of failure to wean. The patient has a #8 [address] tracheostomy tube in place 9 Benign essential hypertension. 10 Type 2 diabetes. 11 Dyslipidemia. 12 Chronic atrial fibrillation, on amiodarone and on anticoagulation therapy 13 History of hypothyroidism. 14 History of ileostomy on 08/02/2020. 15 Chronic anemia 16 generalized motor weakness and debility seconds above-mentioned comorbidities 17 Large volume diarrhea, out of the ileostomy, C. diff has been ruled out and initiated on octreotide and Questran Plan: The patient is seen and evaluated by Dr. Meyers Chest x-ray and labs reviewed Continue cefepime, bronchodilators Continues with high output via the ileostomy Continued on octreotide and Questran Will see if pharmacy has tincture of opium Resume lactated Ringer's at 50 MLS per hour We'll continue to monitor him closely here in the ICU We will continue to follow and make further recommendations based on his clinical status I, the cosigning physician, performed a history & physical examination of the patient. Lungs sounds with crackles in the left base. Maintaining good O2 saturations in the 90s on 28% trach collar. I discussed the assessment and plan of care with my nurse practitioner, Olga Marin. I attest to the above note as dictated by her.
[2020-10-15] MEDS: LACTATED RINGERS 1,000 ML IV SCH (16:54)
[2020-10-15 16:56] LABS: Glucose,Whole Blood 113 mg/dL (75-99)
--- NOTE | 2020-10-15 17:17 | P.PN ---
Subjective Progress Note Date: 10/15/20 CHIEF COMPLAINT: Ischemic bowel HISTORY OF PRESENT ILLNESS: The patient is a 80-year-old male with complex surgical history of ischemic small bowel status post enterectomy followed by intra-abdominal hemorrhage with reexploration and open abdomen and status post coronary artery bypass graft. He has failed a swallow study. He is on multiple IV antibiotics. He has decubitus ulcer. He is in the ICU. Clinically, he has features of short gut syndrome. ROS: No fevers or chills. No new chest pain. PHYSICAL EXAM: VITAL SIGNS: Reviewed CONSTITUTIONAL: Well developed and in no acute distress. EYES: Conjuctivae without sclera icterus. Extraocular movements grossly intact. HEAD, EARS, NOSE, THROAT: Moist buccal mucosa. Head is atraumatic, normocephalic. Hears conversational speech. No nasal drainage. NECK: Has trach. RESPIRATORY: Non-labored respirations and equal bilateral excursions. CARDIOVASCULAR: Palpable 2+ radial pulses. ABDOMEN: No peritonitis. Ileostomy patent and functioning. MUSCULOSKELETAL: No clubbing. No cyanosis. SKIN: Good skin turgor. Well perfused. NEUROLOGIC: Cranial nerves II through XII grossly intact. No focal or lateralizing signs. PSYCH: Appropriate affect. Alert and oriented to person, place and time. CLINICAL LABS: White blood cell count elevated at 16.0, hemoglobin 8.5. Creatinine elevated 1.43. ASSESSMENT: 1. Ischemic bowel 2. High output ileostomy 3. Short bowel syndrome 4. Sepsis PLAN: 1. With clinical picture of short bowel syndrome, recommend multidisciplinary management with medicine, dietitian, and may likely benefit from referral to tertiary care center for management. Objective - Vital Signs Vital signs: Vital Signs Temp 96.1 F L 10/15/20 16:00 Pulse 68 10/15/20 16:30 Resp 29 H 10/15/20 16:00 BP 128/73 10/15/20 16:00 Pulse Ox 98 10/15/20 16:00 Intake & Output 10/14/20 10/15/20 10/15/20 18:59 06:59 18:59 Intake Total 1680 1470 1080 Output Total 1715 1300 1515 Balance -35 170 -435 Weight 78.3 kg Intake: IV 260 300 180 0.9 NACL 80 200 180 Cefepime 2 gm In Sodium 100 Chloride 0.9% 100 ml @ 25 mls/hr IVPB Q12H WADE Rx# :[id number] Lactated Ringers 1,000 ml 180 @ 75 mls/hr IV .[id number] WADE Rx#:[id number] Intake, IV Titration 250 Amount Amiodarone 450 mg In 250 Dextrose 5% in Water 250 ml @ 0.5 MG/MIN 16.667 mls/hr IV .Q15H WADE Rx#: [id number] Tube Feeding 1170 1080 900 Other 90 Output: Urine 200 725 550 Stool 1515 575 665 Other 300 Other: Voiding Method Urinal Urinal Urinal - Labs CBC & Chem 7: 11/04/20 03:00 11/04/20 03:00 Labs: Abnormal Lab Results - Last 24 Hours (Table) 10/14/20 10/15/20 10/15/20 Range/Units 17:15 00:04 03:31 WBC 16.0 H (3.8-10.6) k/uL RBC 3.01 L (4.30-5.90) m/uL Hgb 8.5 L (13.0-17.5) gm/dL Hct 26.9 L (39.0-53.0) % RDW 18.6 H (11.5-15.5) % Neutrophils # 14.1 H (1.3-7.7) k/uL Sodium (137-145) mmol/L BUN (9-20) mg/dL Creatinine (0.66-1.25) mg/dL Glucose (74-99) mg/dL POC Glucose (mg/dL) 129 H 166 H (75-99) mg/dL Total Protein (6.3-8.2) g/dL Albumin (3.5-5.0) g/dL 10/15/20 10/15/20 10/15/20 Range/Units 03:31 05:51 11:51 WBC (3.8-10.6) k/uL RBC (4.30-5.90) m/uL Hgb (13.0-17.5) gm/dL Hct (39.0-53.0) % RDW (11.5-15.5) % Neutrophils # (1.3-7.7) k/uL Sodium 136 L (137-145) mmol/L BUN 50 H (9-20) mg/dL Creatinine 1.43 H (0.66-1.25) mg/dL Glucose 138 H (74-99) mg/dL POC Glucose (mg/dL) 156 H 169 H (75-99) mg/dL Total Protein 5.5 L (6.3-8.2) g/dL Albumin 2.6 L (3.5-5.0) g/dL 10/15/20 Range/Units 16:53 WBC (3.8-10.6) k/uL RBC (4.30-5.90) m/uL Hgb (13.0-17.5) gm/dL Hct (39.0-53.0) % RDW (11.5-15.5) % Neutrophils # (1.3-7.7) k/uL Sodium (137-145) mmol/L BUN (9-20) mg/dL Creatinine (0.66-1.25) mg/dL Glucose (74-99) mg/dL POC Glucose (mg/dL) 113 H (75-99) mg/dL Total Protein (6.3-8.2) g/dL Albumin (3.5-5.0) g/dL Assessment and Plan (1) Short bowel syndrome Status: Acute Code(s): K91.2 - POSTSURGICAL MALABSORPTION, NOT ELSEWHERE CLASSIFIED SNOMED Code(s): 24677148 (2) Intra abdominal hemorrhage Status: Acute Code(s): R58 - HEMORRHAGE, NOT ELSEWHERE CLASSIFIED SNOMED Code(s): 561839579 (3) Ischemic colitis, enteritis, or enterocolitis Status: Acute Code(s): K55.9 - VASCULAR DISORDER OF INTESTINE, UNSPECIFIED SNOMED Code(s): 57246194 (4) Leukocytosis Status: Acute Code(s): D72.829 - ELEVATED WHITE BLOOD CELL COUNT, UNSPECIFIED SNOMED Code(s): 897047889
--- NOTE | 2020-10-15 18:29 | P.PN ---
Subjective This is a pleasant 80 years old male with past medical history of coronary artery disease, COPD, diabetes mellitus, hyperlipidemia, hypertension, hy pothyroidism, coronary artery disease status post cardiac cath and stent placement. He recently underwent double coronary artery bypass grafting for his triple-vessel coronary artery disease. He was in the hospital from 07/18/20- 08/25/2020 pt has tracheostomhy and PEG tube , Information were obtained with the help of at bedside, he presents with confusion, and a lot of secretion Why he states that [facility] went to [facility] aren't states therefore one month and 5 days and then he was discharged a few days ago to [facility] on Friday, however over the weekend he has more congestion, he has weak cough and needed frequent suctioning, patient was able to talk weekly his little confused but he can't communicate through gesture, he denies pain but he is tachypneic He has tracheostomy, PEG tube and try to colostomy. Admitted with-hypotension secondary to severe sepsis secondary to pneumonia, aspiration pneumonia, acute hypoxic respiratory failure, acute kidney injury secondary to ATN, elevated sodium, increased lactic acid, elevated troponin felt to be from tachycardia. Recent history of intraperitoneal hemorrhage status post laboratory with washout and ileostomy on 08/02/2020. Tracheostomy. C. diff ruled out. 10/13/2020 History the patient developed A. fib and he was started on amiodarone drip which helped to convert him to sinus rhythm today with a plan for him to convert him to oral amiodarone, however there is concerned about his disruption, he has 2 palpating through PEG tube but he has high output ileostomy with stool is light yellow in color for example he has about 1.2 L discharge this morning. Also he is on IV fluids in the form of lingular left at 75 milliliters per hour Patient is also covered with Zosyn and water flushes lowered to 30 mL every 4 hours Also he has low urine output with bladder scan and possible straight cath if needed Mistiran is admitted today 10/14/2020 This is a pleasant 80 years old male with past tracheostomy was sent originally [facility] for respiratory distress Patient is monitored closely in the ICU. He is with short bowel syndrome and high output enterostomy about 100-150 mL/h with yellow stool. He is getting tube feeding through PEG tube and running at 90 mL/h with 30 mL water flushes and he is tolerating that well Yesterday patient underwent modified barium swallow test and he failed the test. Most likely patient with aspiration pneumonia on the top ,he is on antibiotics Creatinine today is 1.5 which is at baseline as he is CKD stage III and baseline creatinine 1.2-1.3 He is still on amiodarone drip for his A. fib with RVR also he is still on Lovenox 80 mg twice daily Atibiotics were adjusted from Zosyn to cefepime today under supervision of ID team 10/15/2020 Patient is seen and examined in the ICU. He had uneventful night yesterday. He still have high output discharge from his ileostomy although it's today slightly thicker. A still could not take orally and PEG Tube. Also He Is Getting Amiodarone Drip He is a slightly tachypneic. Afebrile. Saturating 98% on 28% FiO2. Not tachycardic. Labs showed leukocytosis with WBC 16 K. Hemoglobin is 8.5. Creatinine slightly down today to 1.4. Glucose is controlled Sputum culture is growing staph feeling coccus areas and Klebsiella pneumoniae both are sensitive to cefepime Patient remains on octreotide and Questran Review of systems CONSTITUTIONAL: No fever, no malaise, no fatigue. HEENT: No recent visual problems or hearing problems. Denied any sore throat. CARDIOVASCULAR: No orthopnea, PND, no palpitations, no syncope. PULMONARY: No shortness of breath, no cough, no hemoptysis. GASTROINTESTINAL: No diarrhea, no nausea, no vomiting, no abdominal pain. Normoactive bowel sounds. Active Medications Generic Name Dose Route Start Last Admin Trade Name Freq PRN Reason Stop Dose Admin Acetaminophen 650 mg 10/13/20 22:55 10/15/20 11:00 Acetaminophen Tab 325 Mg Tab PO 650 mg Q6HR PRN Administration Fever and/ or Pain Albuterol/Ipratropium 3 ml 10/04/20 08:00 10/15/20 16:21 Ipratropium-Albuterol 3 Ml Neb INHALATION 3 ml RT-QID WADE Administration Albuterol/Ipratropium 3 ml 10/03/20 21:23 10/03/20 21:27 Ipratropium-Albuterol 3 Ml Neb INHALATION 3 ml RT-Q2H PRN Administration Shortness Of Breath Or Wheezing Aspirin 81 mg 10/07/20 18:30 10/15/20 09:15 Aspirin 81 Mg PO 81 mg DAILY WADE Administration Atorvastatin Calcium 40 mg 10/03/20 20:00 10/14/20 21:20 Atorvastatin 40 Mg Tab PEG/G-TUBE 40 mg HS@2000 WADE Administration Budesonide 1 mg 10/04/20 08:00 10/15/20 07:23 Budesonide 1 Mg/2 Ml Nebu INHALATION 1 mg RT-BID WADE Administration Cholestyramine Resin 4 gm 10/06/20 10:00 10/15/20 16:55 Cholestyramine (With Sugar) 4 Gm Packet PO 4 gm BID@1000,1800 WADE Administration Darbepoetin Alex 40 mcg 10/03/20 10:00 10/10/20 12:18 Darbepoetin Alex 40 Mcg/0.4 Ml Syringe SQ 40 mcg Q7D WADE Administration Diphenoxylate HCl/Atropine 1 each 10/12/20 12:00 10/15/20 16:53 Diphenox-Atrop 2.5-0.025 Mg 1 Each Tab PO 1 each Q6HR WADE Administration Enoxaparin Sodium 80 mg 10/13/20 09:00 10/15/20 09:16 Enoxaparin 80 Mg/0.8 Ml Syringe SQ 80 mg Q12HR WADE Administration Famotidine 20 mg 10/07/20 21:00 10/14/20 21:19 Famotidine 20 Mg Tab PO 20 mg HS WADE Administration Amiodarone HCl 450 mg/ 250 mls @ 16.667 mls/hr 10/12/20 23:00 10/15/20 07:01 Dextrose/Water IV 0.5 mg/min .Q15H WADE 16.667 mls/hr Administration Protocol 0.5 MG/MIN Cefepime HCl 2 gm/ Sodium 100 mls @ 25 mls/hr 10/14/20 21:00 10/15/20 09:14 Chloride IVPB 25 mls/hr Q12H WADE Administration Lactated Ringer's 1,000 mls @ 50 mls/hr 10/15/20 16:00 10/15/20 16:54 Lactated Ringers IV 50 mls/hr .Q20H WADE Administration Insulin Aspart 0 unit 10/04/20 00:00 10/15/20 16:55 Insulin Aspart (Novolog) 100 Unit/Ml Vial SQ Not Given Q6H [facility] Protocol Levothyroxine Sodium 50 mcg 10/04/20 06:00 10/15/20 05:55 Levothyroxine 50 Mcg Tab PEG/G-TUBE 50 mcg DAILY@0600 WADE Administration Melatonin 3 mg 10/08/20 20:46 10/14/20 21:20 Melatonin 3 Mg Tablet PO 3 mg HS PRN Administration Insomnia Metoprolol Tartrate 25 mg 10/03/20 10:00 10/15/20 16:54 Metoprolol Tartrate 25 Mg Tab PO 25 mg TID WADE Administration Midodrine 10 mg 10/05/20 08:15 10/15/20 16:53 Midodrine 5 Mg Tab PO 10 mg Q8HR WADE Administration Miscellaneous Information 1 each 10/09/20 18:33 Potassium Replacement Protocol 1 Each Misc MISCELLANE DAILY PRN Per Protocol Protocol Naloxone HCl 0.2 mg 10/02/20 11:26 Naloxone 0.4 Mg/Ml 1 Ml Vial IV Q2M PRN Opioid Reversal Octreotide Acetate 100 mcg 10/12/20 16:00 10/15/20 16:54 Octreotide 100 Mcg/Ml Inj SQ 100 mcg Q8HR WADE Administration Ondansetron HCl 4 mg 10/02/20 11:26 10/11/20 03:52 Ondansetron 4 Mg/2 Ml Vial IVP 4 mg Q8HR PRN Administration Nausea And Vomiting Quetiapine Fumarate 25 mg 10/03/20 21:00 10/14/20 21:21 Quetiapine 25 Mg Tab PO 25 mg HS WADE Administration Tamsulosin HCl 0.4 mg 10/03/20 09:30 10/15/20 09:15 Tamsulosin 0.4 Mg Cap.Er.24h PO 0.4 mg [id number] WADE Administration Objective - Vital Signs Vital signs: Vital Signs Temp 96.1 F L 10/15/20 16:00 Pulse 68 10/15/20 18:00 Resp 26 H 10/15/20 18:00 BP 115/77 10/15/20 18:00 Pulse Ox 98 10/15/20 18:00 Intake & Output 10/14/20 10/15/20 10/15/20 18:59 06:59 18:59 Intake Total 1680 1470 1270 Output Total 1715 1300 1690 Balance -35 170 -420 Weight 78.3 kg Intake: IV 260 300 230 0.9 NACL 80 200 180 Cefepime 2 gm In Sodium 100 Chloride 0.9% 100 ml @ 25 mls/hr IVPB Q12H WADE Rx# :[id number] Lactated Ringers 1,000 ml 180 50 @ 75 mls/hr IV .[id number] WADE Rx#:[id number] Intake, IV Titration 250 50 Amount Amiodarone 450 mg In 250 Dextrose 5% in Water 250 ml @ 0.5 MG/MIN 16.667 mls/hr IV .Q15H WADE Rx#: [id number] Lactated Ringers 1,000 ml 50 @ 50 mls/hr IV .Q20H WADE Rx#:[id number] Tube Feeding 1170 1080 990 Other 90 Output: Urine 200 725 550 Stool 1515 575 840 Other 300 Other: Voiding Method Urinal Urinal Urinal - Exam -GENERAL: The patient is awake, he is more alert. He is well nourished. HEENT: Pupils are round and equally reacting to light. EOMI. No scleral icterus. No conjunctival pallor. Normocephalic, atraumatic. No pharyngeal erythema. No thyromegaly. CARDIOVASCULAR: S1 and S2 present. No murmurs, rubs, or gallops. -PULMONARY: Chest is clear to auscultation, no wheezing or crackles. Tachypneic. Status post tracheostomy with some secretions -ABDOMEN: Soft, nontender, nondistended, normoactive bowel sounds. No palpable organomegaly. PEG tube is in place, right colostomy. Abdominal midline wound, no purulent discharge but yellow , status post debridement by surgical team with dressing is in place MUSCULOSKELETAL: No joint swelling or deformity. EXTREMITIES: No cyanosis, clubbing, or pedal edema. NEUROLOGICAL: Gross neurological examination did not reveal any focal deficits. SKIN: No rashes. No petechiae - Labs CBC & Chem 7: 10/15/20 03:31 10/15/20 03:31 Labs: Abnormal Lab Results - Last 24 Hours (Table) 10/15/20 10/15/20 10/15/20 Range/Units 00:04 03:31 03:31 WBC 16.0 H (3.8-10.6) k/uL RBC 3.01 L (4.30-5.90) m/uL Hgb 8.5 L (13.0-17.5) gm/dL Hct 26.9 L (39.0-53.0) % RDW 18.6 H (11.5-15.5) % Neutrophils # 14.1 H (1.3-7.7) k/uL Sodium 136 L (137-145) mmol/L BUN 50 H (9-20) mg/dL Creatinine 1.43 H (0.66-1.25) mg/dL Glucose 138 H (74-99) mg/dL POC Glucose (mg/dL) 166 H (75-99) mg/dL Total Protein 5.5 L (6.3-8.2) g/dL Albumin 2.6 L (3.5-5.0) g/dL 10/15/20 10/15/20 10/15/20 Range/Units 05:51 11:51 16:53 WBC (3.8-10.6) k/uL RBC (4.30-5.90) m/uL Hgb (13.0-17.5) gm/dL Hct (39.0-53.0) % RDW (11.5-15.5) % Neutrophils # (1.3-7.7) k/uL Sodium (137-145) mmol/L BUN (9-20) mg/dL Creatinine (0.66-1.25) mg/dL Glucose (74-99) mg/dL POC Glucose (mg/dL) 156 H 169 H 113 H (75-99) mg/dL Total Protein (6.3-8.2) g/dL Albumin (3.5-5.0) g/dL Assessment and Plan Assessment: sepsis related to his pneumonia. Possible aspiration pneumonia Acute Hypoxic respiratory failure, status post tracheostomy on trach collar High output ileostomy Acute kidney injury on the top of chronic kidney disease, creatinine improved to baseline Hypernatremia, resolved Elevated lactic acid, improved Elevated troponin, mostly secondary to tachycardia per decorative greens cutter History of triple vessel coronary artery disease status post bypass surgery on 07/18/2020 Atrial fibrillation on Eliquis (on hold), currently covered with Lovenox Stage II sacral pressure ulcer Recent history of intraperitoneal hemorrhage status post exploratory laparotomy with washout and ileostomy on 08/02/2020 Hypothyroidism Moderate to severe COPD, with no acute exacerbation Remote history of nicotine dependence Chronic kidney disease stage II Hypertension Hyperlipidemia Type 2 diabetes mellitus No code Plan: This is a pleasant 80 years old male who presents with dyspnea and hypotension possible secondary to aspiration pneumonia. on cefepime. Also he has high output ileostomy, continue with tube feeding and water flushes continue with IV fluid. At [facility] and follow-up stool output. Cardiology on the case for his A. fib with RVR, currently with amiodarone Pulmonary and cardiology consult, continue with IV fluids, continue with oxygen as needed. Continue with amiodarone drip and metoprolol. Continue with anticoagulation Unpaid Intern and surgical team are consulted as well Labs and medication were reviewed.. Continue same treatment. Continue with symptomatic treatment. Resume home medication if patient able to take them. Monitor lytes and vitals. DVT and GI prophylaxis. Further recommendations depends on the clinical course of the patient DVT prophylaxis: Hold Eliquis and continue with Lovenox. Continue with mechanical GI Prophylaxis: Protonix Prognosis is guarded
[2020-10-15] MEDS: FAMOTIDINE 20 MG TAB PO SCH (21:27)
[2020-10-15] MEDS: ATORVASTATIN 40 MG TAB PEG/G-TUBE SCH (21:27)
[2020-10-15] MEDS: QUEtiapine 25 MG TAB PO SCH (21:27)
[2020-10-15] MEDS: MELATONIN 3 MG TABLET PO PRN (21:27)
[2020-10-15 23:51] LABS: Glucose,Whole Blood 165 mg/dL (75-99)
[2020-10-16 04:28] LABS: Anisocytosis Slight; Basophils # (A) 0.1 k/uL (0-0.2); Basophils % (A) 0 %; Eosinophils # (A) 0.1 k/uL (0-0.7); Eosinophils % (A) 1 %; HCT 26.3 % (39.0-53.0); HGB 8.2 gm/dL (13.0-17.5); Hypochromasia Slight; Lymphocytes % (A) 7 %; MCHC 31.3 g/dL (31.0-37.0); MCV 89.4 fL (80.0-100.0); Mean Platelet Volume 7.6; Monocytes # (A) 0.6 k/uL (0-1.0); Monocytes % (A) 4 %; Neutrophils # (A) 12.7 k/uL (1.3-7.7); Neutrophils % (A) 87 %; Platelet Count 225 k/uL (150-450); Poikilocytosis Slight; RBC 2.94 m/uL (4.30-5.90); RDW 18.6 % (11.5-15.5); WBC 14.6 k/uL (3.8-10.6)
[2020-10-16 06:10] LABS: Glucose,Whole Blood 173 mg/dL (75-99)
[2020-10-16] MEDS: DIPHENOX-ATROP 2.5-0.025 MG 1 EACH TAB PO SCH ×4 (06:12→23:25)
[2020-10-16] MEDS: INSULIN ASPART (NovoLOG) 100 UNIT/ML VIAL SQ SCH ×4 (06:12→23:25)
[2020-10-16] MEDS: LEVOTHYROXINE 50 MCG TAB PEG/G-TUBE SCH (06:12)
--- NOTE | 2020-10-16 06:14 | PN ---
PROGRESS NOTE DATE OF SERVICE: 10/15/2020 REASON FOR FOLLOWUP: Pneumonia. INTERVAL HISTORY: The patient is currently afebrile. Patient is breathing comfortably. Denies having any chest pain. No shortness of breath. Occasional cough. No abdominal pain. Still has increased output through his ileostomy. PHYSICAL EXAMINATION: Blood pressure 106/71 with a pulse of 65, temperature 98. He is 94% on trach collar. General description is an elderly male up in the chair in no distress. Respiratory system: Unlabored breathing, decreased breath sounds at the base. No wheeze. Heart S1, S2. Regular rate and rhythm. Abdomen is soft, no tenderness. LABS: Hemoglobin 8.5, white count [id number], BUN of 15, creatinine 1.43. DIAGNOSTIC IMPRESSION AND PLAN: Patient with pneumonia. Sputum is positive post MSSA and Klebsiella. The patient did have significant stool output through the ostomy with Zosyn and antibiotic switched to cefepime to continue and monitor clinical course closely. Family at the bedside and questions were answered. MMODL / IJN: [id number] /
[2020-10-16 07:29] LABS: Albumin 2.5 g/dL (3.5-5.0); Calcium 9.7 mg/dL (8.4-10.2); Potassium 4.6 mmol/L (3.5-5.1); Total Bilirubin 0.5 mg/dL (0.2-1.3); Total Protein 5.5 g/dL (6.3-8.2)
--- NOTE | 2020-10-16 07:40 | XR ---
EXAMINATION TYPE: XR chest 1V portable DATE OF EXAM: 10/16/2020 Comparison: 10/15/2020 Clinical History: 80-year-old male pneumonia Findings: Median sternotomy wires. Post-CABG clips. Tracheostomy cannula. Relative upper lung lucencies. Right PICC tip in the expected lower right subclavian vein. Heart borderline in size. Small to moderate eff usions with bibasilar opacities persist. Impression: Continued small to moderate effusions with adjacent atelectasis and/or consolidation.
[2020-10-16] MEDS: CEFEPIME 2 GM in SODIUM CHLORIDE 0.9% 100 ML IVPB SCH ×2 (07:52→21:23)
[2020-10-16] MEDS: TAMSULOSIN 0.4 MG CAP.ER.24H PO SCH (07:53)
[2020-10-16] MEDS: ACETAMINOPHEN TAB 325 MG TAB PO PRN ×2 (07:53→21:24)
[2020-10-16] MEDS: ASPIRIN 81 MG PO SCH (07:53)
[2020-10-16] MEDS: METOPROLOL TARTRATE 25 MG TAB PO SCH ×3 (07:53→21:24)
[2020-10-16] MEDS: MIDODRINE 5 MG TAB PO SCH ×3 (07:53→23:25)
[2020-10-16] MEDS: ENOXAPARIN 80 MG/0.8 ML SYRINGE SQ SCH ×2 (07:54→21:23)
--- NOTE | 2020-10-16 08:39 | P.PN ---
Subjective Progress Note Date: 10/16/20 Acute on chronic hypoxic respiratory failure secondary to left lower lobe pneumonia and sepsis This is a 80-year-old white male familiar to my service, in July 2020, patient underwent elective coronary artery bypass grafting. He had a very complicated postoperative course, patient required multiple abdominal surgeries, multiple intubations, extubations, and the intubations, patient was a failure to wean, and he had multiple abdominal surgeries during his stay. Patient underwent tracheostomy, PEG tube placement, and we were able to transfer the patient to an extended care facility. He was at the extended care facility until about a week ago, his tracheostomy was capped, and he was transferred to [facility] in [facility]. Patient has been noticing increased cough, increased shortness of breath, and significant purulent secretions from the tracheostomy tube when uncapped. O2 saturation was dipping down into the 50s and in the ER he had a saturation of 86% on 15 L high flow nasal cannula. Patient was also noted to have leukocytosis, hemoglobin was low, his troponin was slightly elevated, blood pressure was noted to be marginally low, patient was admitted initially to the cardiac floor, however supposedly he was noted to have blood pressure in the 70s systolic. Patient did receive multiple fluid boluses in the ER over 3 L were given, and we were notified about the patient on the floor having low blood pressure, I recommended transferred to the ICU planning to start the patient on norepinephrine. However over the last 12 hours in the ICU, his blood pressure has been stable patient did not require placement on any pressors. His beta blockers had been on hold because of low blood pressure, and he is maintained on amiodarone. His pro-calcitonin level was noted to be 2.60. And his chest x-ray showed left lower lobe atelectasis, suspect left lower lobe pneumonia. And he had small pleural effusions noted more so than right. Going back to his previous hospital admission, patient did have left lower lobe pneumonia and he did have left pleural effusion requiring thoracentesis once or twice. Cultures previously from the sputum were positive for Pseudomonas fluorescence/putida, sensitive to Zosyn and Levaquin and meropenem. Also sensitive to cefepime. Considering the patient's presentation with hypotension, shortness of breath, cough, abnormal chest x-ray, hypoxia, and considering his recent clinical history, we were asked to see him on consultation Patient was reevaluated today on 10/04/2020, patient remains in the ICU, he is on trach collar a 55%, patient went into atrial fibrillation with RVR yesterday, and he went on amiodarone at 1 mg/m, he also received 1 unit of packed RBCs for hemoglobin of 6.7, patient converted to sinus rhythm. Remains in sinus rhythm, patient is receiving tube feeds/Nepro at 65/65. He is also receiving free water. Chest x-ray is showing minimal improvement in the left lower lobe consolidation, clinically the patient is feeling better, he is empirically on antibiotics for healthcare acquired pneumonia/Zosyn. Previous sputum cultures were positive for Pseudomonas, hence his Zosyn was chosen as the drug of choice. CBC today showed WBC 7.2 hemoglobin 6.7, hence a unit of blood was given. Electrolytes showed low sodium but improving today is 148 from 150 to yesterday. BUN is 108 creatinine 3.4 to about the same as yesterday. Reevaluated today on 10/05/2020, patient remains in the ICU, remains on 55% trach collar. Off norepinephrine, IV fluids at KVO, tolerating enteral feeding via PEG tube, patient continues to have significant amount of tracheal secretions, he is now on Zosyn and vancomycin, as well as Zyvox. His cultures from the sputum are showing MSSA, hence we will discontinue vancomycin, keep him on Zosyn, and infectious disease to address his Zyvox. Patient may not even req uire Zyvox considering the culture is positive for MSSA. Chest x-ray is showing bilateral pleural effusions/small, renal functioning is slightly improved over the last 24 hours. Patient was switched to oral amiodarone, and he seems to be doing quite well, in sinus rhythm. Reevaluated today on 10/06/2020, patient remains in the ICU, remains on trach collar at 28%, sputum came back positive for Klebsiella and MSSA. Patient is on Zosyn and Zyvox. Remains on a small dose of norepinephrine at 0.01 mcg/kg/m, remains on enteral feeding/Nepro at 65 ML per hour, also receiving Questran. Patient continues to have significant output from his ileostomy. Patient is feeling better overall compared to how he felt on presentation. CBC today is relatively normal WBC count is 7.1 hemoglobin is 8.7, electrolytes are normal BUN is 93 creatinine is 3.17, improving over the last couple of days. Blood cultures remain negative. Again his sputum cultures are positive for MSSA and Klebsiella pneumonia. Reevaluated today on 10/07/2020, patient remains in the ICU, remains on trach collar at 28%, receiving antibiotics for his Klebsiella and MSSA pneumonia. Patient is only on Zosyn, and his Zyvox was discontinued since it was initially started by infectious disease for possible MRSA. Patient is requiring intermittently small doses of norepinephrine, clinically however the patient is much better compared to how he felt when he came in. He is in no distress, this morning he is off norepinephrine, but he didn't require norepinephrine last night, hence I will not transfer the patient out of the ICU yet. Chest x-ray continues to show by basilar atelectasis, possible left lower lobe consolidation which is chronic. Secretions from the tracheostomy are less and less. Renal profile is improving, creatinine is down to 2.9. CBC is normal. Electrolytes are normal. On 10/08/2020 the patient is being seen in follow-up in the intensive unit. His, comfortable and currently is on a trach collar with an FiO2 of 28%. The chest x-ray shows small bilateral pleural effusions and there is adequate expansion of both lungs and a orotracheal tube is in a good location. Note that he had MSSA and Klebsiella in his sputum and patient is currently on IV antibiotics and he is receiving IV Zosyn. Patient continues to have copious amount of secretions through his tracheostomy tube and the patient has a #8 [address] tracheostomy tube in place and he is requiring suctioning every 2 hours at least. He still has a lot of rhonchi He is currently off pressors. He is in normal sinus rhythm. He has also PEG tube for enteral feeding and nutritional support. PEG tube is in place and the patient is on Nepro at the rate of 75 mL an hour. He continues to have output through his ileostomy bag. The patient has significant amount of output through his ileostomy was in the order of every 12 hours. No abdominal distention. No signs of any respiratory distress. The creatinine is improving and is currently down to 2.5 and the patient's hemoglobin is at 8.4. No fever. No other issues overnight. Villafana cath is also in place. He is able to communicate. However he is still profoundly weak/in lower extremities. He is able to raise his arms against gravity. On 10/09/2020 patient seen in follow-up in the intensive care unit. Patient is awake and alert, is following commands, moving all 4 extremities, no signs of any respiratory distress, he is breathing comfortably, on 28% trach collar. His pulse ox is 98%. Still having some secretions from his tracheostomy, related he is on Zosyn for antibiotic coverage. Remains on nebulized bronchodilators, hemodynamically patient has been stable. No requiring any vasopressor support for last 48 hours. No acute events overnight. His sputum cultures were positive for MSSA and Klebsiella pneumonia. Today's labs have been reviewed, normal white count at 8.5, hemoglobin is 9.0, sodium is 137, potassium is 3.7, chloride is 110, B1 is 67, creatinine is 2.18. Patient has been nothing by mouth and has been receiving nutrition in the form of Nepro at 65 with a goal of 65. Patient has had significant diarrhea, liquid yellow output from his il eostomy. No complaints of chest pain. He is in sinus mechanism with a controlled rate. Chest x-ray shows basilar infiltrates and atelectasis with small effusions. On 10/10/2020 patient seen in follow-up in the intensive care unit. He is awake and alert, oriented 3, his calm and cooperative, he denies any acute distress, he still has significant amount of secretions that are being suctioned from the tracheostomy tube, he remains on 20% trach collar. He remains on antibiotics, his sputum cultures were positive for MSSA and Klebsiella pneumonia, he is on Zosyn, he has had no fever or chills. Lung sounds reveal minimal rhonchi, less congested and wheezy on today's exam compared a few days ago. Patient is tolerating tube feedings, he remains strict nothing by mouth, he is on Nepro at a rate of 65 ML per hour with a goal of 65 with 125 ML free water flushes every 3 hours. Abdomen is soft, ileostomy is still producing copious amount of liquid yellow diarrhea, which will be sent for C. diff. There has been a total of 2.5 L in stool output in the last 24 hours. Today's labs have been reviewed, white blood cell count is 8.9, hemoglobin is 8.9, CO2 is 18, sodium is 138, potassium is 3.9, chloride is 110, renal profile is improving despite the diarrhea, with BUN of 63, creatinine is 1.94. Patient is working with physical therapy and yesterday he apparently was up in the chair with assistance, tolerated activity well. On 10/11/2020 patient seen in follow-up in intensive care unit, she remains on 28% trach collar, the pulse ox of 97%, vital signs have been stable, his been afebrile, he did have a run of A. fib with RVR this morning and was restarted on amiodarone drip and was given 150 mg bolus of amiodarone. He is currently back in sinus mechanism with a controlled rate, receiving hydration with LR at 75 ML per hour, he continues to have large volume diarrhea out of his ileostomy, he had to 3.3 L in stool output in last 24 hours, C. diff was negative. tube feedings have been switched to vital AF currently running at 75 ML per hour, patient is getting free water flushes of 125 ML every 3 hours. Yesterday we placed him on lactated Ringer's at rate of 75 ML per hour, he is receiving or sodium bicarbonate tablets, his bicarbonate concentration at today's labs has improved and is up to 23. The renal profile slightly improved. Continues on Zosyn for MSSA and Klebsiella pneumonia in sputum cultures, blood cultures have been negative, patient has been afebrile, blood pressure stable, the patient continues on midodrine. Patient is awake and alert, following commands, responding appropriately, appears tired on today's exam. Denies any acute distress, his been working with physical therapy, he stood at the bedside, he is too weak to walk. Abdomen is soft, mid abdominal incision is covered with a dressing. On 10/12/2020 patient seen in follow-up in the intensive care unit. Patient is up in the recliner, breathing comfortably, she is on 20% trach collar, lung sounds are less congested and rhonchorous on today's exam. He is awake and oriented 3, denies any distress, he is currently on lactated Ringer's at a rate of 75 ML per hour, no recurrence of A. fib RVR overnight, his amiodarone is infusing at 0.5 mg/m and he will be transitioned to oral amiodarone today per cardiology, he remained in sinus rhythm. Vital signs are stable. He is on tube feedings of vital AF a rate of 90 with a goal of 90 with 125 ML free water flushes every 3 hours. His diarrhea output has decreased some, patient had 2 L in the liquid ostomy is stool output in the last 24 hours, he is on Lomotil when necessary. No abdominal pain. no nausea or vomiting no nausea or vomiting. The secretions out of the tracheostomy tube have decreased. Patient has been nothing by mouth, she would like to have a swallow evaluation to be evaluated for oral feedings. Today's chest x-ray has been reviewed showing left lower lobe infiltrate and/or pleural effusion, and improving aeration in the right lower lobe. Today's labs have been reviewed, showing white blood cell count of 12.4, hemoglobin of 9.3, electrolytes within normal limits, renal profile shows slight improvement in creatinine, down to 1.6 today. The patient is seen today 10/13/2020 in follow-up in the intensive care unit. He is currently sitting up in a recliner at the bedside. Awake and alert in no acute distress. He is maintaining good O2 saturations in the 90s on 28% trach collar. He is receiving lactated Ringer's at 75 ML's per hour. He is currently on amiodarone drip at 0.5 mg/m. He is being nourished with vital AF at 90 ML's per hour which is goal with 125 ML free water flushes every 3 hours. He still has significant amount of output and his ileostomy. 1.8 L in the past 24 hours. He's been initiated on Questran and octreotide. Chest x-ray is showing improving left lower lobe infiltrate with small effusion. Sputum was positive for Staphylococcus aureus, Klebsiella pneumoniae. He remains on Zosyn. He is status post 1 unit of packed red blood cells this admission. Current hemoglobin 8.8. Platelets 257. INR 1.4. White count 16.2. Sodium 137. Potassium 4.3. Creatinine 1.65. He is currently in sinus rhythm. He's been initiated on Lovenox 80 mg subcu every 12 hours per cardiology. The plan is to switch back to oral amiodarone. The patient is seen today 10/14/2020 and follow-up in the intensive care unit. He is currently sitting up in a chair at the bedside. Awake and alert in no acute distress. Continues to maintain good O2 saturations in the 90s on 28% t eleanor collar. He does remain on amiodarone drip at 0.5 mg/m. Currently in sinus rhythm. Lactated Ringer's at 20 ML's per hour. Being nourished with vital AF 90 ML's per hour which is goal. Chest x-ray today reveals chronic branch changes with a small left pleural effusion and bibasilar atelectas is/infiltrates. No significant change compared to previous. He is status post 1 unit of packed red blood cells this admission. Current hemoglobin 8.6. INR 1.4. White count 15.3. Sodium 136. Potassium 4.1. Creatinine 1.58. Remains on bronchodilators, Zosyn. Continued on octreotide and Questran with approximately 150 ML's of liquid out of the ileostomy per hour. Yesterday's modified barium swallow revealed evidence of aspiration. Recommended alternative means of nutrition. Continue PEG tube feedings. The patient is seen today 10/15/2020 in follow-up in the intensive care unit. He sitting up in a recliner at the bedside. Awake and alert in no acute distress. Continued on 28% FiO2 via trach collar. Maintaining O2 saturations in the 90s. He is continued on cefepime and bronchodilators. Chest x-ray reveals chronic parenchymal changes with small left greater than right pleural effusions and bibasilar atelectasis/infiltrate. He remains on amiodarone at 0.5 mg/m. No other IV fluids. He is still having high output of the ileostomy 150 ML's per hour. Continued on Questran and Sandostatin without much improvement. White count 16.0. Hemoglobin 8.5. Sodium 136. Potassium 4.2. Creatinine 1.43. Glucose 138. Albumin 2.6. He remains on Vital AF 1.2 at 90 ML's per parag r. On 10/16/2020 the patient is being seen in follow-up in the intensive care unit. His weight is gradually going up and is up to 79 kg. He is stool output is also dropped. He was producing up to 2.7 L of stool output and for yesterday he produced one 1.6 L. He does have an ileostomy with possibly a short gut and he is still receiving enteral feeding via his PEG tube for nutritional support and the patient is currently on vital high protein. He is on Questran, Lomotil and octreotide which has helped somewhat with his stool output. The patient remains on amiodarone 0.5 mg per minute regarding his chronic atrial fibrillation. 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 He is hemodynamically stable. Repeat chest x-ray from today shows only small bilateral pleural effusion. His creatinine is at 1.49. Hemoglobin is today at 8.2 with a white cell count of 14.6. His serum albumin is at 2.5 with a total protein of 5.5. His last swallow evaluation was done on 10/13/2020 and he failed the swallow evaluation. He remains on IV cefepime. In terms of anticoagulation, the patient remains on Lovenox 80 mg subcu every 12 hours. Concern about his absorption on oral medication for that reason the patient was given a combination of amiodarone and subcutaneous Lovenox. Objective - Vital Signs Vital signs: Vital Signs Temp 97.6 F 10/16/20 04:00 Pulse 96 10/16/20 08:00 Resp 27 H 10/16/20 08:00 BP 119/68 10/16/20 08:00 Pulse Ox 93 L 10/16/20 08:00 Intake & Output 10/15/20 10/16/20 10/16/20 18:59 06:59 18:59 Intake Total 1270 2026.116 140 Output Total 1690 1110 300 Balance -420 916.116 -160 Weight 79 kg Intake: IV 230 670 50 0.9 NACL 180 20 Cefepime 2 gm In Sodium 100 Chloride 0.9% 100 ml @ 25 mls/hr IVPB Q12H [facility] Rx# :[id number] Lactated Ringers 1,000 ml 550 50 @ 50 mls/hr IV .Q20H [facility]ADE Rx#:[id number] Lactated Ringers 1,000 ml 50 @ 75 mls/hr IV .[id number] [facility]ADE Rx#:[id number] Intake, IV Titration 50 276.116 Amount Amiodarone 450 mg In 226.116 Dextrose 5% in Water 250 ml @ 0.5 MG/MIN 16.667 mls/hr IV .Q15H [facility]ADE Rx#: [id number] Lactated Ringers 1,000 ml 50 50 @ 50 mls/hr IV .Q20H [facility]ADE Rx#:[id number] Tube Feeding 990 990 90 Other 90 Output: Urine 550 350 Stool 840 760 300 Other 300 Other: Voiding Method Urinal Urinal - Exam GENERAL EXAM: Alert, very pleasant, 80-year-old male patient on the 28% trach collar, comfortable in no apparent distress. HEAD: Normocephalic/atraumatic. EYES: Normal reaction of pupils, equal size. Conjunctiva pink, sclera white. NOSE: Clear with pink turbinates. THROAT: No erythema or exudates. NECK: Midline tracheostomy in place. No masses, no JVD, no thyroid enlargement, no adenopathy. CHEST: No chest wall deformity. Symmetrical expansion. LUNGS: Equal air entry with crackles in the left base. CVS: Regular rate and rhythm, normal S1 and S2, no gallops, no murmurs, no rubs ABDOMEN: Soft, nontender. No hepatosplenomegaly, normal bowel sounds, no guarding or rigidity. PEG tube exit site clean and dry. Midabdominal incision covered with dressing, is healing by secondary intention, sutures are in place, bed is 100% granulated wound bed. Right upper quadrant ileostomy in place connected to a Villafana drainage bag patient is having liquid yellow stool output EXTREMITIES: No clubbing, no edema, no cyanosis, 2+ pulses and upper and lower extremities. MUSCULOSKELETAL: Muscle strength and tone normal. SPINE: No scoliosis or deformity SKIN: No rashes CENTRAL NERVOUS SYSTEM: Alert and oriented -3. No focal deficits, tone is normal in all 4 extremities. PSYCHIATRIC: Alert and oriented -3. Appropriate affect. Intact judgment and insight. - Labs CBC & Chem 7: 10/16/20 03:19 10/16/20 03:19 Labs: Abnormal Lab Results - Last 24 Hours (Table) 10/15/20 10/15/20 10/15/20 Range/Units 11:51 16:53 23:49 WBC (3.8-10.6) k/uL RBC (4.30-5.90) m/uL Hgb (13.0-17.5) gm/dL Hct (39.0-53.0) % RDW (11.5-15.5) % Neutrophils # (1.3-7.7) k/uL BUN (9-20) mg/dL Creatinine (0.66-1.25) mg/dL Glucose (74-99) mg/dL POC Glucose (mg/dL) 169 H 113 H 165 H (75-99) mg/dL Total Protein (6.3-8.2) g/dL Albumin (3.5-5.0) g/dL 10/16/20 10/16/20 10/16/20 Range/Units 03:19 03:19 06:08 WBC 14.6 H (3.8-10.6) k/uL RBC 2.94 L (4.30-5.90) m/uL Hgb 8.2 L (13.0-17.5) gm/dL Hct 26.3 L (39.0-53.0) % RDW 18.6 H (11.5-15.5) % Neutrophils # 12.7 H (1.3-7.7) k/uL BUN 48 H (9-20) mg/dL Creatinine 1.49 H (0.66-1.25) mg/dL Glucose 164 H (74-99) mg/dL POC Glucose (mg/dL) 173 H (75-99) mg/dL Total Protein 5.5 L (6.3-8.2) g/dL Albumin 2.5 L (3.5-5.0) g/dL Assessment and Plan Plan: 1 Bilateral lower lobe pneumonia with sepsis. The chest x-ray shows improvement in the lower lobe pulmonary infiltrates and there are still some infiltration and small effusions bilaterally. He remains on IV cefepime. The patient's chest x-ray shows interval improvement in the bilateral pleural effusions. The patient continues to have respiratory secretions. His previous cultures have shown a combination of Klebsiella and MSSA. The patient has been on IV cefepime since 09/13/2020. Roger that he was on a combination of Zithromax and Aurelio ephin. As such, the patient has been on several days of antibiotics. 2 Acute on chronic hypoxic respiratory failure secondary to pneumonia and underlying COPD, currently on a 28% trach collar and the patient required tracheostomy following a prolonged intubation mechanical ventilation post cardiac surgery. 3 Bilateral lower lobe pneumonia, secondary to MSSA, and Klebsiella pneumonia (cultured in the sputum) 4 Sepsis secondary to pneumonia, currently off pressors 5 Acute on chronic kidney injury secondary to sepsis, , improving, current creatinine 1.49 6 Moderate-severe COPD. 7 History of triple-vessel coronary artery disease, bypass surgery on 07/18/2020 with multiple postoperative complications 8 History of tracheostomy mostly because of failure to wean. The patient has a #8 Shiley tracheostomy tube in place 9 Benign essential hypertension. 10 Type 2 diabetes. 11 Dyslipidemia. 12 Chronic atrial fibrillation, on amiodarone and on anticoagulation therapy 13 History of hypothyroidism. 14 History of ileostomy on 08/02/2020. 15 Chronic anemia 16 generalized motor weakness and debility seconds above-mentioned comorbidities 17 Large volume diarrhea, out of the ileostomy, C. diff has been ruled out and initiated on octreotide and Questran Plan: Chest x-ray and labs reviewed and it shows improvement in the volume status and there are only small bilateral pleural effusions. Continue cefepime, bronchodilators Continues with high output via the ileostomy Continued on octreotide and Questran Will see if pharmacy has tincture of opium Recheck stool for C. diff Pulmonary toileting and frequent suctioning Discussed with ID the possibility of simply find antibiotics lactated Ringer's at 50 MLS per hour We'll continue to monitor him closely here in the ICU We will continue to follow and make further recommendations based on his clinical status
[2020-10-16] MEDS: IPRATROPIUM-ALBUTEROL 3 ML NEB INHALATION SCH ×4 (09:00→23:05)
[2020-10-16] MEDS: BUDESONIDE 1 MG/2 ML NEBU INHALATION SCH ×2 (09:00→23:06)
[2020-10-16] MEDS: OCTREOTIDE 100 MCG/ML INJ SQ SCH ×3 (10:00→23:25)
[2020-10-16] MEDS: CHOLESTYRAMINE (WITH SUGAR) 4 GM PACKET PO SCH ×2 (10:09→18:40)
--- NOTE | 2020-10-16 10:40 | P.PN ---
Subjective Patient is seen in follow for acute kidney injury. Renal function stable. Has been voiding. Denies chest pain or shortness of breath. He is receiving tube feeding. Still has high output from the ileostomy. Currently on amiodarone drip for A. fib. Hemodynamically stable. No changes overnight. Vital signs are stable. General: The patient appeared well nourished and normally developed. HEENT: Tracheostomy noted. LUNGS: Breath sounds decreased. HEART: Rate and Rhythm are regular. ABDOMEN: Soft, no distention noted. Ileostomy noted. EXTREMITITES: No edema. Objective - Vital Signs Vital signs: Vital Signs Temp 97.6 F 10/16/20 04:00 Pulse 69 10/16/20 10:00 Resp 30 H 10/16/20 10:00 BP 107/60 10/16/20 10:00 Pulse Ox 97 10/16/20 10:00 Intake & Output 10/15/20 10/16/20 10/16/20 18:59 06:59 18:59 Intake Total 1270 2026.116 600 Output Total 1690 1110 1050 Balance -420 916.116 -450 Weight 79 kg Intake: IV 230 670 300 0.9 NACL 180 20 Cefepime 2 gm In Sodium 100 100 Chloride 0.9% 100 ml @ 25 mls/hr IVPB Q12H [facility] Rx# :[id number] Lactated Ringers 1,000 ml 550 200 @ 50 mls/hr IV .Q20H [facility] Rx#:[id number] Lactated Ringers 1,000 ml 50 @ 75 mls/hr IV .[id number] [facility] Rx#:[id number] Intake, IV Titration 50 276.116 Amount Amiodarone 450 mg In 226.116 Dextrose 5% in Water 250 ml @ 0.5 MG/MIN 16.667 mls/hr IV .Q15H [facility] Rx#: [id number] Lactated Ringers 1,000 ml 50 50 @ 50 mls/hr IV .Q20H [facility] Rx#:[id number] Tube Feeding 990 990 270 Other 90 30 Output: Urine 550 350 0 Stool 269 230 1411 Other 300 Other: Voiding Method Urinal Urinal - Labs CBC & Chem 7: 10/16/20 03:19 10/16/20 03:19 Labs: Abnormal Lab Results - Last 24 Hours (Table) 10/15/20 10/15/20 10/15/20 Range/Units 11:51 16:53 23:49 WBC (3.8-10.6) k/uL RBC (4.30-5.90) m/uL Hgb (13.0-17.5) gm/dL Hct (39.0-53.0) % RDW (11.5-15.5) % Neutrophils # (1.3-7.7) k/uL BUN (9-20) mg/dL Creatinine (0.66-1.25) mg/dL Glucose (74-99) mg/dL POC Glucose (mg/dL) 169 H 113 H 165 H (75-99) mg/dL Total Protein (6.3-8.2) g/dL Albumin (3.5-5.0) g/dL 10/16/20 10/16/20 10/16/20 Range/Units 03:19 03:19 06:08 WBC 14.6 H (3.8-10.6) k/uL RBC 2.94 L (4.30-5.90) m/uL Hgb 8.2 L (13.0-17.5) gm/dL Hct 26.3 L (39.0-53.0) % RDW 18.6 H (11.5-15.5) % Neutrophils # 12.7 H (1.3-7.7) k/uL BUN 48 H (9-20) mg/dL Creatinine 1.49 H (0.66-1.25) mg/dL Glucose 164 H (74-99) mg/dL POC Glucose (mg/dL) 173 H (75-99) mg/dL Total Protein 5.5 L (6.3-8.2) g/dL Albumin 2.5 L (3.5-5.0) g/dL Assessment and Plan Plan: Assessment: 1. Acute kidney injury secondary to ATN secondary to hypotension and hemodynamic instability. Renal function improved from admission. Creatinine stable at 1.49 today. No hydronephrosis noted on kidney ultrasound. 2. Chronic kidney disease stage III with baseline creatinine 1.2-1.5 secondary to nephrosclerosis. 3. A. fib with RVR. Maintained on IV amiodarone. 4. Hypernatremia secondary to lack of oral water intake. Resolved. 5. Failed swallow eval maintained on tube feeding. 6. Diabetes mellitus. 7. Anemia of chronic kidney disease. Maintained on Aranesp. Status post IV iron and blood transfusion this admission. 8. 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 Currently has ileostomy. 9. Sepsis secondary to pneumonia maintained on antibiotics. Plan: Maintain tube feeding. Continue to monitor renal function and urine output. Avoid nephrotoxins.
[2020-10-16 11:53] LABS: Glucose,Whole Blood 195 mg/dL (75-99)
[2020-10-16] MEDS: AMIODARONE 450 MG in DEXTROSE 5% IN WATER 250 ML IV SCH ×2 (12:35)
--- NOTE | 2020-10-16 12:48 | P.PN ---
Subjective Progress Note Date: 10/16/20 CHIEF COMPLAINT: Respiratory distress HISTORY OF PRESENT ILLNESS: Patient is being followed in regards to his abdominal wound at incision site. Patient remains in the ICU. He is sitting at bedside chair. He denies any abdominal pain. Patient is having high ileostomy output but is starting to show some improvement. Yesterday he had 2.7 L of stool output and today 1.6 L. He remains on Questran and Lomotil and Sandostatin to help slow ileostomy output. He does likely have short gut syndrome. Antibiotics switched from Zosyn to cefepime by ID. Zosyn may have contributed to high ostomy output. Tube feedings changed to vital 1.2. He failed his modified barium swallow it did show evidence of aspiration. Patient is afebrile. Trach collaring 97%. WBC 14.6 hemoglobin 8.2 creatinine 1.49 PHYSICAL EXAM: VITAL SIGNS: Reviewed. GENERAL: Well-developed in no acute distress. HEENT: No sclera icterus. Extraocular movements grossly intact. Moist buccal mucosa. Head is atraumatic, normocephalic. ABDOMEN: Soft. Nondistended. Nontender. Dressing clean dry and intact. Patient has a yellowish liquidy stool coming through the ileostomy. NEUROLOGIC: Alert and oriented. Cranial nerves II through XII grossly intact. ASSESSMENT: 1. Abdominal wound at surgical incision site. 2. High ileostomy output 3. History of ischemic small bowel with evidence of pneumatosis status post small bowel resection on 07/24/2020. 4. History of intraperitoneal hemorrhage and small bowel ischemia status post exploratory laparotomy, washout of peritoneal cavity and ileostomy with small bowel resection on 08/02/2020 5. 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 Acute hypoxic respiratory failure secondary to pneumonia 7. Sepsis secondary to pneumonia 8. Acute kidney injury 9. chronic Anemia: With known chronic kidney disease and iron deficiency. He did require blood transfusion and IV Iron during this admission PLAN: -Recommend ileostomy reversal when patient is medically stable -Continue wound care with Aquacel dressing -Continue Sandostatin, Lomotil and Questran to help with high-volume ileostomy output -Continue supportive care -Continue ICU management -Continue antibiotics per ID Physician [employer] note has been reviewed by physician. Signing provider agrees with the documented findings, assessment, and plan of care. Objective - Vital Signs Vital signs: Vital Signs Temp 97.6 F 10/16/20 04:00 Pulse 73 10/16/20 12:31 Resp 27 H 10/16/20 11:00 BP 104/66 10/16/20 11:00 Pulse Ox 97 10/16/20 11:00 Intake & Output 10/15/20 10/16/20 10/16/20 18:59 06:59 18:59 Intake Total 1270 2026.116 990 Output Total 1690 1110 1150 Balance -420 916.116 -160 Weight 79 kg 79 kg Intake: IV 230 670 350 0.9 NACL 180 20 Cefepime 2 gm In Sodium 100 100 Chloride 0.9% 100 ml @ 25 mls/hr IVPB Q12H [facility] Rx# :[id number] Lactated Ringers 1,000 ml 550 250 @ 50 mls/hr IV .Q20H [facility] Rx#:[id number] Lactated Ringers 1,000 ml 50 @ 75 mls/hr IV .[id number] [facility] Rx#:[id number] Intake, IV Titration 50 276.116 250 Amount Amiodarone 450 mg In 226.116 250 Dextrose 5% in Water 250 ml @ 0.5 MG/MIN 16.667 mls/hr IV .Q15H [facility] Rx#: [id number] Lactated Ringers 1,000 ml 50 50 @ 50 mls/hr IV .Q20H [facility] Rx#:[id number] Tube Feeding 990 990 360 Other 90 30 Output: Urine 550 350 0 Stool 558 708 2864 Other 300 Other: Voiding Method Urinal Urinal - Labs CBC & Chem 7: 10/16/20 03:19 10/16/20 03:19 Labs: Abnormal Lab Results - Last 24 Hours (Table) 10/15/20 10/15/20 10/16/20 Range/Units 16:53 23:49 03:19 WBC 14.6 H (3.8-10.6) k/uL RBC 2.94 L (4.30-5.90) m/uL Hgb 8.2 L (13.0-17.5) gm/dL Hct 26.3 L (39.0-53.0) % RDW 18.6 H (11.5-15.5) % Neutrophils # 12.7 H (1.3-7.7) k/uL BUN (9-20) mg/dL Creatinine (0.66-1.25) mg/dL Glucose (74-99) mg/dL POC Glucose (mg/dL) 113 H 165 H (75-99) mg/dL Total Protein (6.3-8.2) g/dL Albumin (3.5-5.0) g/dL 10/16/20 10/16/20 10/16/20 Range/Units 03:19 06:08 11:51 WBC (3.8-10.6) k/uL RBC (4.30-5.90) m/uL Hgb (13.0-17.5) gm/dL Hct (39.0-53.0) % RDW (11.5-15.5) % Neutrophils # (1.3-7.7) k/uL BUN 48 H (9-20) mg/dL Creatinine 1.49 H (0.66-1.25) mg/dL Glucose 164 H (74-99) mg/dL POC Glucose (mg/dL) 173 H 195 H (75-99) mg/dL Total Protein 5.5 L (6.3-8.2) g/dL Albumin 2.5 L (3.5-5.0) g/dL
[2020-10-16] MEDS: LACTATED RINGERS 1,000 ML IV SCH (17:13)
--- NOTE | 2020-10-16 17:15 | P.PN ---
Subjective HISTORY OF PRESENTING ILLNESS This is a pleasant 80-year-old male past medical history significant for coronary artery disease status post CABG July 2020, complicated postoperative course with multiple abdominal surgeries, intubations and event madhav underwent tracheostomy and PEG tube placement. He been discharged to [facility] however presented back to the hospital 08/01/2021 secondary to shortness breath. There has been some concern about whether patient is absorbing all of his medications as he does have extensive output from his ostomy. Therefore he was placed on amiodarone as well as subcutaneous Lovenox. He is not able to talk over his trach however denies any chest pain or pressure. He admits to some discomfort of his buttocks from sitting for prolonged periods of time. He remains in normal sinus rhythm currently. REVIEW OF SYSTEMS Unable to perform full review of systems secondary to patient being nonverbal. Patient able to shake his head that he does not have any chest pain, pressure and no significant change in his breathing. PHYSICAL EXAMINATION Blood pressure 101/60 heart rate 89 afebrile and maintaining oxygen saturation on trach collar at 28 FiO2. CONSTITUTIONAL: No apparent distress, chronically ill-appearing, tracheostomy and PEG tube. HEENT: Head is normocephalic. Pupils are equal, round. Sclerae anicteric. Mucous membranes of the mouth are moist. No JVD. No carotid bruit. CHEST EXAMINATION: Lungs are clear to auscultation. No chest wall tenderness is noted on palpation or with deep breathing. HEART EXAMINATION: Regular rate and rhythm. S1, S2 heard. No murmurs, gallops or rub. ABDOMEN: Soft, nontender. Positive bowel sounds. EXTREMITIES: 2+ peripheral pulses, no lower extremity edema and no calf tenderness. NEUROLOGIC EXAMINATION: Patient is awake, alert and oriented x3. ASSESSMENT 1. Paroxysmal atrial fibrillation, currently sinus rhythm 2. Bilateral lower lobe pneumonia 3. Acute on chronic respiratory failure 4. Acute kidney injury 5. COPD 6. CAD with triple-vessel disease status post bypass 07/18/2020 7. Anemia 8. Hypertension 9. Large volume of diarrhea, questionable absorption of some of his medications. PLAN Continue with IV amiodarone, currently maintaining a normal sinus rhythm. Also continue subcutaneous Lovenox for anticoagulation. Continue antibiotics and pulmonary recommendations appreciated, monitor her pressure closely. Monitor hemoglobin and anemia. Continue supportive care. Further recommendations to follow. Objective - Vital Signs Vital signs: Vital Signs Temp 97.7 F 03/01/21 12:00 Pulse 90 10/16/20 16:50 Resp 26 H 10/16/20 16:00 BP 101/60 10/16/20 16:00 Pulse Ox 98 10/16/20 16:00 Intake & Output 10/15/20 10/16/20 10/16/20 18:59 06:59 18:59 Intake Total 1270 2026.116 1750 Output Total 1690 1110 2230 Balance -420 916.116 -480 Weight 79 kg 79 kg Intake: IV 230 670 600 0.9 NACL 180 20 Cefepime 2 gm In Sodium 100 100 Chloride 0.9% 100 ml @ 25 mls/hr IVPB Q12H [facility] Rx# :[id number] Lactated Ringers 1,000 ml 550 500 @ 50 mls/hr IV .Q20H [facility] Rx#:[id number] Lactated Ringers 1,000 ml 50 @ 75 mls/hr IV .[id number] [facility] Rx#:[id number] Intake, IV Titration 50 276.116 250 Amount Amiodarone 450 mg In 226.116 250 Dextrose 5% in Water 250 ml @ 0.5 MG/MIN 16.667 mls/hr IV .Q15H [facility] Rx#: [id number] Lactated Ringers 1,000 ml 50 50 @ 50 mls/hr IV .Q20H [facility] Rx#:[id number] Tube Feeding 990 990 810 Other 90 90 Output: Urine 550 350 775 Stool 353 555 0882 Other 300 Other: Voiding Method Urinal Urinal Urinal - Labs CBC & Chem 7: 10/16/20 03:19 10/16/20 03:19 Labs: Abnormal Lab Results - Last 24 Hours (Table) 10/15/20 10/16/20 10/16/20 Range/Units 23:49 03:19 03:19 WBC 14.6 H (3.8-10.6) k/uL RBC 2.94 L (4.30-5.90) m/uL Hgb 8.2 L (13.0-17.5) gm/dL Hct 26.3 L (39.0-53.0) % RDW 18.6 H (11.5-15.5) % Neutrophils # 12.7 H (1.3-7.7) k/uL BUN 48 H (9-20) mg/dL Creatinine 1.49 H (0.66-1.25) mg/dL Glucose 164 H (74-99) mg/dL POC Glucose (mg/dL) 165 H (75-99) mg/dL Total Protein 5.5 L (6.3-8.2) g/dL Albumin 2.5 L (3.5-5.0) g/dL 10/16/20 10/16/20 Range/Units 06:08 11:51 WBC (3.8-10.6) k/uL RBC (4.30-5.90) m/uL Hgb (13.0-17.5) gm/dL Hct (39.0-53.0) % RDW (11.5-15.5) % Neutrophils # (1.3-7.7) k/uL BUN (9-20) mg/dL Creatinine (0.66-1.25) mg/dL Glucose (74-99) mg/dL POC Glucose (mg/dL) 173 H 195 H (75-99) mg/dL Total Protein (6.3-8.2) g/dL Albumin (3.5-5.0) g/dL
[2020-10-16 17:53] LABS: Glucose,Whole Blood 119 mg/dL (75-99)
[2020-10-16] MEDS: QUEtiapine 25 MG TAB PO SCH (21:23)
[2020-10-16] MEDS: MELATONIN 3 MG TABLET PO PRN (21:23)
[2020-10-16] MEDS: ATORVASTATIN 40 MG TAB PEG/G-TUBE SCH (21:24)
[2020-10-16] MEDS: FAMOTIDINE 20 MG TAB PO SCH (21:24)
--- NOTE | 2020-10-16 23:14 | PN ---
PROGRESS NOTE DATE OF SERVICE: 10/16/2020 REASON FOR FOLLOWUP: Pneumonia. INTERVAL HISTORY: The patient is currently afebrile. Patient is breathing comfortably. Denies having any chest pain, shortness of breath. Occasional cough. No abdominal pain. Still has significant output in his ileostomy. PHYSICAL EXAMINATION: Blood pressure is 96/62 with a pulse of 80, temperature 98. He is 100% on trach collar. General description is an elderly male up in the chair in no distress. Respiratory system: Unlabored breathing, decreased breath sounds in the bases. No wheeze. Heart S1, S2. Regular rate. Abdomen soft, no tenderness. LABS: Hemoglobin 8.2 with white count 14.6, BUN of 48, creatinine 1.49. Stool for C difficile has been negative. DIAGNOSTIC IMPRESSION AND PLAN: Patient admitted to hospital with pneumonia in this patient with Klebsiella and MSSA has been covered with cefepime to continue. Will add Flagyl with concern for possible aspiration process and that may help slow down his stool output. Continue supportive care. MMODL / IJN: [id number] /
[2020-10-16 23:20] LABS: Glucose,Whole Blood 168 mg/dL (75-99)
[2020-10-16] MEDS: metroNIDAZOLE 500 MG TAB PO SCH (23:26)
--- NOTE | 2020-10-17 00:02 | P.PN ---
Subjective This is a pleasant 80 years old male with past medical history of coronary artery disease, COPD, diabetes mellitus, hyperlipidemia, hypertension, hy pothyroidism, coronary artery disease status post cardiac cath and stent placement. He recently underwent double coronary artery bypass grafting for his triple-vessel coronary artery disease. He was in the hospital from 07/18/20- 08/25/2020 pt has tracheostomhy and PEG tube , Information were obtained with the help of at bedside, he presents with confusion, and a lot of secretion Why he states that after been discharged from [facility] and he went to [facility] aren't states therefore one month and 5 days and then he was discharged a few days ago to shelter at [facility] on Friday, however over the weekend he has more congestion, he has weak cough and needed frequent suctioning, patient was able to talk weekly his little confused but he can't communicate through gesture, he denies pain but he is tachypneic He has tracheostomy, PEG tube and try to colostomy. Admitted with-hypotension secondary to severe sepsis secondary to pneumonia, aspiration pneumonia, acute hypoxic respiratory failure, acute kidney injury secondary to ATN, elevated sodium, increased lactic acid, elevated troponin felt to be from tachycardia. Recent history of intraperitoneal hemorrhage status post laboratory with washout and ileostomy on 08/02/2020. Tracheostomy. C. diff ruled out. 10/13/2020 History the patient developed A. fib and he was started on amiodarone drip which helped to convert him to sinus rhythm today with a plan for him to convert him to oral amiodarone, however there is concerned about his disruption, he has 2 palpating through PEG tube but he has high output ileostomy with stool is light yellow in color for example he has about 1.2 L discharge this morning. Also he is on IV fluids in the form of lingular left at 75 milliliters per hour Patient is also covered with Zosyn and water flushes lowered to 30 mL every 4 hours Also he has low urine output with bladder scan and possible straight cath if needed Mistiran is admitted today 10/14/2020 This is a pleasant 80 years old male with past tracheostomy was sent originally from shelter for respiratory distress Patient is monitored closely in the ICU. He is with short bowel syndrome and high output enterostomy about 100-150 mL/h with yellow stool. He is getting tube feeding through PEG tube and running at 90 mL/h with 30 mL water flushes and he is tolerating that well Yesterday patient underwent modified barium swallow test and he failed the test. Most likely patient with aspiration pneumonia on the top ,he is on antibiotics Creatinine today is 1.5 which is at baseline as he is CKD stage III and baseline creatinine 1.2-1.3 He is still on amiodarone drip for his A. fib with RVR also he is still on Lovenox 80 mg twice daily Atibiotics were adjusted from Zosyn to cefepime today under supervision of ID team 10/15/2020 Patient is seen and examined in the ICU. He had uneventful night yesterday. He still have high output discharge from his ileostomy although it's today slightly thicker. A still could not take orally and PEG Tube. Also He Is Getting Amiodarone Drip He is a slightly tachypneic. Afebrile. Saturating 98% on 28% FiO2. Not tachycardic. Labs showed leukocytosis with WBC 16 K. Hemoglobin is 8.5. Creatinine slightly down today to 1.4. Glucose is controlled Sputum culture is growing staph feeling coccus areas and Klebsiella pneumoniae both are sensitive to cefepime Patient remains on octreotide and Questran 10/16/2020 Patient is awake lying comfortable in bed Still have high output ileostomy to. He tolerates peg tube feeding well. He is breathing quietly This is a switch to sinus and is currently on oral amiodarone with cardiology was on the case patient remains on cefepime and Flagyl is been admitted by ID team as well for faster healing Sutures team are considering ileostomy reversal Review of systems CONSTITUTIONAL: No fever, no malaise, no fatigue. HEENT: No recent visual problems or hearing problems. Denied any sore throat. CARDIOVASCULAR: No orthopnea, PND, no palpitations, no syncope. PULMONARY: No shortness of breath, no cough, no hemoptysis. GASTROINTESTINAL: No diarrhea, no nausea, no vomiting, no abdominal pain. Normoactive bowel sounds. Active Medications Generic Name Dose Route Start Last Admin Trade Name Freq PRN Reason Stop Dose Admin Acetaminophen 650 mg 10/13/20 22:55 10/16/20 21:24 Acetaminophen Tab 325 Mg Tab PO 650 mg Q6HR PRN Administration Fever and/ or Pain Albuterol/Ipratropium 3 ml 10/04/20 08:00 10/16/20 23:05 Ipratropium-Albuterol 3 Ml Neb INHALATION 3 ml RT-QID WADE Administration Albuterol/Ipratropium 3 ml 10/03/20 21:23 10/03/20 21:27 Ipratropium-Albuterol 3 Ml Neb INHALATION 3 ml RT-Q2H PRN Administration Shortness Of Breath Or Wheezing Aspirin 81 mg 10/07/20 18:30 10/16/20 07:53 Aspirin 81 Mg PO 81 mg DAILY WADE Administration Atorvastatin Calcium 40 mg 10/03/20 20:00 10/16/20 21:24 Atorvastatin 40 Mg Tab PEG/G-TUBE 40 mg HS@2000 WADE Administration Budesonide 1 mg 10/04/20 08:00 10/16/20 23:06 Budesonide 1 Mg/2 Ml Nebu INHALATION 1 mg RT-BID WADE Administration Cholestyramine Resin 4 gm 10/06/20 10:00 10/16/20 18:40 Cholestyramine (With Sugar) 4 Gm Packet PO 4 gm BID@1000,1800 WADE Administration Darbepoetin Alex 40 mcg 10/03/20 10:00 10/10/20 12:18 Darbepoetin Alex 40 Mcg/0.4 Ml Syringe SQ 40 mcg Q7D WADE Administration Diphenoxylate HCl/Atropine 1 each 10/12/20 12:00 10/16/20 23:25 Diphenox-Atrop 2.5-0.025 Mg 1 Each Tab PO 1 each Q6HR WADE Administration Enoxaparin Sodium 80 mg 10/13/20 09:00 10/16/20 21:23 Enoxaparin 80 Mg/0.8 Ml Syringe SQ 80 mg Q12HR WADE Administration Famotidine 20 mg 10/07/20 21:00 10/16/20 21:24 Famotidine 20 Mg Tab PO 20 mg HS WADE Administration Amiodarone HCl 450 mg/ 250 mls @ 16.667 mls/hr 10/12/20 23:00 10/16/20 12:35 Dextrose/Water IV 0.5 mg/min .Q15H WADE 16.667 mls/hr Administration Protocol 0.5 MG/MIN Cefepime HCl 2 gm/ Sodium 100 mls @ 25 mls/hr 10/14/20 21:00 10/16/20 21:23 Chloride IVPB 25 mls/hr Q12H WADE Administration Lactated Ringer's 1,000 mls @ 50 mls/hr 10/15/20 16:00 10/16/20 17:13 Lactated Ringers IV 50 mls/hr .Q20H WADE Administration Insulin Aspart 0 unit 10/04/20 00:00 10/16/20 23:25 Insulin Aspart (Novolog) 100 Unit/Ml Vial SQ 2 unit Q6H WADE Administration Protocol Levothyroxine Sodium 50 mcg 10/04/20 06:00 10/16/20 06:12 Levothyroxine 50 Mcg Tab PEG/G-TUBE 50 mcg DAILY@0600 WADE Administration Melatonin 3 mg 10/08/20 20:46 10/16/20 21:23 Melatonin 3 Mg Tablet PO 3 mg HS PRN Administration Insomnia Metoprolol Tartrate 25 mg 10/03/20 10:00 10/16/20 21:24 Metoprolol Tartrate 25 Mg Tab PO 25 mg TID WADE Administration Metronidazole 500 mg 10/16/20 23:00 10/16/20 23:26 Metronidazole 500 Mg Tab PO 500 mg TID WADE Administration Midodrine 10 mg 10/05/20 08:15 10/16/20 23:25 Midodrine 5 Mg Tab PO 10 mg Q8HR WADE Administration Miscellaneous Information 1 each 10/09/20 18:33 Potassium Replacement Protocol 1 Each Misc MISCELLANE DAILY PRN Per Protocol Protocol Naloxone HCl 0.2 mg 10/02/20 11:26 Naloxone 0.4 Mg/Ml 1 Ml Vial IV Q2M PRN Opioid Reversal Octreotide Acetate 100 mcg 10/12/20 16:00 10/16/20 23:25 Octreotide 100 Mcg/Ml Inj SQ 100 mcg Q8HR WADE Administration Ondansetron HCl 4 mg 10/02/20 11:26 10/11/20 03:52 Ondansetron 4 Mg/2 Ml Vial IVP 4 mg Q8HR PRN Administration Nausea And Vomiting Quetiapine Fumarate 25 mg 10/03/20 21:00 10/16/20 21:23 Quetiapine 25 Mg Tab PO 25 mg HS WADE Administration Tamsulosin HCl 0.4 mg 10/03/20 09:30 10/16/20 07:53 Tamsulosin 0.4 Mg Cap.Er.24h PO 0.4 mg PC-[id number] WADE Administration Objective - Vital Signs Vital signs: Vital Signs Temp 97.7 F 10/16/20 12:00 Pulse 78 10/16/20 19:00 Resp 18 10/16/20 19:00 BP 93/64 10/16/20 19:00 Pulse Ox 99 10/16/20 19:00 Intake & Output 10/16/20 10/16/20 10/17/20 06:59 18:59 06:59 Intake Total 2026.116 2080 Output Total 1110 2380 Balance 916.116 -300 Weight 79 kg 79 kg Intake: IV 670 750 0.9 NACL 20 Cefepime 2 gm In Sodium 100 100 Chloride 0.9% 100 ml @ 25 mls/hr IVPB Q12H WADE Rx# :[id number] Lactated Ringers 1,000 ml 550 650 @ 50 mls/hr IV .Q20H WADE Rx#:[id number] Intake, IV Titration 276.116 250 Amount Amiodarone 450 mg In 226.116 250 Dextrose 5% in Water 250 ml @ 0.5 MG/MIN 16.667 mls/hr IV .Q15H WADE Rx#: [id number] Lactated Ringers 1,000 ml 50 @ 50 mls/hr IV .Q20H WADE Rx#:[id number] Tube Feeding 990 990 Other 90 90 Output: Urine 350 775 Stool 760 1605 Other: Voiding Method Urinal Urinal - Exam -GENERAL: The patient is awake, he is more alert. He is well nourished. HEENT: Pupils are round and equally reacting to light. EOMI. No scleral icterus. No conjunctival pallor. Normocephalic, atraumatic. No pharyngeal erythema. No thyromegaly. CARDIOVASCULAR: S1 and S2 present. No murmurs, rubs, or gallops. -PULMONARY: Chest is clear to auscultation, no wheezing or crackles. Tachypneic. Status post tracheostomy with some secretions -ABDOMEN: Soft, nontender, nondistended, normoactive bowel sounds. No palpable organomegaly. PEG tube is in place, right colostomy. Abdominal midline wound, no purulent discharge but yellow , status post debridement by surgical team with dressing is in place MUSCULOSKELETAL: No joint swelling or deformity. EXTREMITIES: No cyanosis, clubbing, or pedal edema. NEUROLOGICAL: Gross neurological examination did not reveal any focal deficits. SKIN: No rashes. No petechiae - Labs CBC & Chem 7: 10/16/20 03:19 10/16/20 03:19 Labs: Abnormal Lab Results - Last 24 Hours (Table) 10/15/20 10/16/20 10/16/20 Range/Units 23:49 03:19 03:19 WBC 14.6 H (3.8-10.6) k/uL RBC 2.94 L (4.30-5.90) m/uL Hgb 8.2 L (13.0-17.5) gm/dL Hct 26.3 L (39.0-53.0) % RDW 18.6 H (11.5-15.5) % Neutrophils # 12.7 H (1.3-7.7) k/uL BUN 48 H (9-20) mg/dL Creatinine 1.49 H (0.66-1.25) mg/dL Glucose 164 H (74-99) mg/dL POC Glucose (mg/dL) 165 H (75-99) mg/dL Total Protein 5.5 L (6.3-8.2) g/dL Albumin 2.5 L (3.5-5.0) g/dL 10/16/20 10/16/20 10/16/20 Range/Units 06:08 11:51 17:52 WBC (3.8-10.6) k/uL RBC (4.30-5.90) m/uL Hgb (13.0-17.5) gm/dL Hct (39.0-53.0) % RDW (11.5-15.5) % Neutrophils # (1.3-7.7) k/uL BUN (9-20) mg/dL Creatinine (0.66-1.25) mg/dL Glucose (74-99) mg/dL POC Glucose (mg/dL) 173 H 195 H 119 H (75-99) mg/dL Total Protein (6.3-8.2) g/dL Albumin (3.5-5.0) g/dL Assessment and Plan Assessment: sepsis related to his pneumonia. 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 History of triple vessel coronary artery disease status post bypass surgery on 07/18/2020 Atrial fibrillation on Eliquis (on hold), currently covered with Lovenox Stage II sacral pressure ulcer Recent history of intraperitoneal hemorrhage status post exploratory laparotomy with washout and ileostomy on 08/02/2020 Hypothyroidism Moderate to severe COPD, with no acute exacerbation Remote history of nicotine dependence Chronic kidney disease stage II Hypertension Hyperlipidemia Type 2 diabetes mellitus No code Plan: This is a pleasant 80 years old male who presents with dyspnea and hypotension possible secondary to aspiration pneumonia. on cefepime. Also he has high output ileostomy, continue with tube feeding and water flushes continue with IV fluid. At [facility] and follow-up stool output. Cardiology on the case for his A. fib with RVR, currently with amiodarone Pulmonary and cardiology consult, continue with IV fluids, continue with oxygen as needed. Continue with amiodarone drip and metoprolol. 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 Continue same treatment. Continue with symptomatic treatment. Resume home medication if patient able to take them. Monitor lytes and vitals. DVT and GI prophylaxis. Further recommendations depends on the clinical course of the patient DVT prophylaxis: Hold Eliquis and continue with Lovenox. Continue with mechanical GI Prophylaxis: Protonix Prognosis is guarded
[2020-10-17 04:17] LABS: Anisocytosis Slight; Basophils # (A) 0.1 k/uL (0-0.2); Basophils % (A) 1 %; Eosinophils # (A) 0.1 k/uL (0-0.7); Eosinophils % (A) 1 %; HCT 23.9 % (39.0-53.0); HGB 7.5 gm/dL (13.0-17.5); Hypochromasia Slight; Lymphocytes % (A) 7 %; MCH 28.3 pg (25.0-35.0); MCHC 31.4 g/dL (31.0-37.0); MCV 89.9 fL (80.0-100.0); Mean Platelet Volume 7.5; Monocytes # (A) 0.7 k/uL (0-1.0); Monocytes % (A) 4 %; Neutrophils # (A) 13.1 k/uL (1.3-7.7); Neutrophils % (A) 87 %; Platelet Count 212 k/uL (150-450); Poikilocytosis Slight; RBC 2.65 m/uL (4.30-5.90); RDW 18.9 % (11.5-15.5)
[2020-10-17 04:56] LABS: Albumin 2.5 g/dL (3.5-5.0); Potassium 4.3 mmol/L (3.5-5.1); Total Bilirubin 0.6 mg/dL (0.2-1.3); Total Protein 5.7 g/dL (6.3-8.2)
[2020-10-17 05:24] LABS: Glucose,Whole Blood 163 mg/dL (75-99)
[2020-10-17] MEDS: INSULIN ASPART (NovoLOG) 100 UNIT/ML VIAL SQ SCH ×3 (05:50→17:56)
[2020-10-17] MEDS: DIPHENOX-ATROP 2.5-0.025 MG 1 EACH TAB PO SCH ×3 (05:51→17:56)
[2020-10-17] MEDS: LEVOTHYROXINE 50 MCG TAB PEG/G-TUBE SCH (05:51)
[2020-10-17] MEDS: LACTATED RINGERS 1,000 ML IV SCH (07:00)
--- NOTE | 2020-10-17 07:41 | P.PN ---
Subjective Progress Note Date: 10/17/20 Acute on chronic hypoxic respiratory failure secondary to left lower lobe pneumonia and sepsis This is a 80-year-old white male familiar to my service, in July 2020, patient underwent elective coronary artery bypass grafting. He had a very complicated postoperative course, patient required multiple abdominal surgeries, multiple intubations, extubations, and the intubations, patient was a failure to wean, and he had multiple abdominal surgeries during his stay. Patient underwent tracheostomy, PEG tube placement, and we were able to transfer the patient to an extended care facility. He was at the extended care facility until about a week ago, his tracheostomy was capped, and he was transferred to [facility]. Patient has been noticing increased cough, increased shortness of breath, and significant purulent secretions from the tracheostomy tube when uncapped. O2 saturation was dipping down into the 50s and in the ER he had a saturation of 86% on 15 L high flow nasal cannula. Patient was also noted to have leukocytosis, hemoglobin was low, his troponin was slightly elevated, blood pressure was noted to be marginally low, patient was admitted initially to the cardiac floor, however supposedly he was noted to have blood pressure in the 70s systolic. Patient did receive multiple fluid boluses in the ER over 3 L were given, and we were notified about the patient on the floor having low blood pressure, I recommended transferred to the ICU planning to start the patient on norepinephrine. However over the last 12 hours in the ICU, his blood pressure has been stable patient did not require placement on any pressors. His beta blockers had been on hold because of low blood pressure, and he is maintained on amiodarone. His pro-calcitonin level was noted to be 2.60. And his chest x-ray showed left lower lobe atelectasis, suspect left lower lobe pneumonia. And he had small pleural effusions noted more so than right. Going back to his previous hospital admission, patient did have left lower lobe pneumonia and he did have left pleural effusion requiring thoracentesis once or twice. Cultures previously from the sputum were positive for Pseudomonas fluorescence/putida, sensitive to Zosyn and Levaquin and meropenem. Also sensitive to cefepime. Considering the patient's presentation with hypotension, shortness of breath, cough, abnormal chest x-ray, hypoxia, and considering his recent clinical history, we were asked to see him on consultation Patient was reevaluated today on 10/04/2020, patient remains in the ICU, he is on trach collar a 55%, patient went into atrial fibrillation with RVR yesterday, and he went on amiodarone at 1 mg/m, he also received 1 unit of packed RBCs for hemoglobin of 6.7, patient converted to sinus rhythm. Remains in sinus rhythm, patient is receiving tube feeds/Nepro at 65/65. He is also receiving free water. Chest x-ray is showing minimal improvement in the left lower lobe consolidation, clinically the patient is feeling better, he is empirically on antibiotics for healthcare acquired pneumonia/Zosyn. Previous sputum cultures were positive for Pseudomonas, hence his Zosyn was chosen as the drug of choice. CBC today showed WBC 7.2 hemoglobin 6.7, hence a unit of blood was given. Electrolytes showed low sodium but improving today is 148 from 150 to yesterday. BUN is 108 creatinine 3.4 to about the same as yesterday. Reevaluated today on 10/05/2020, patient remains in the ICU, remains on 55% trach collar. Off norepinephrine, IV fluids at KVO, tolerating enteral feeding via PEG tube, patient continues to have significant amount of tracheal secretions, he is now on Zosyn and vancomycin, as well as Zyvox. His cultures from the sputum are showing MSSA, hence we will discontinue vancomycin, keep him on Zosyn, and infectious disease to address his Zyvox. Patient may not even req uire Zyvox considering the culture is positive for MSSA. Chest x-ray is showing bilateral pleural effusions/small, renal functioning is slightly improved over the last 24 hours. Patient was switched to oral amiodarone, and he seems to be doing quite well, in sinus rhythm. Reevaluated today on 10/06/2020, patient remains in the ICU, remains on trach collar at 28%, sputum came back positive for Klebsiella and MSSA. Patient is on Zosyn and Zyvox. Remains on a small dose of norepinephrine at 0.01 mcg/kg/m, remains on enteral feeding/Nepro at 65 ML per hour, also receiving Questran. Patient continues to have significant output from his ileostomy. Patient is feeling better overall compared to how he felt on presentation. CBC today is relatively normal WBC count is 7.1 hemoglobin is 8.7, electrolytes are normal BUN is 93 creatinine is 3.17, improving over the last couple of days. Blood cultures remain negative. Again his sputum cultures are positive for MSSA and Klebsiella pneumonia. Reevaluated today on 10/07/2020, patient remains in the ICU, remains on trach collar at 28%, receiving antibiotics for his Klebsiella and MSSA pneumonia. Patient is only on Zosyn, and his Zyvox was discontinued since it was initially started by infectious disease for possible MRSA. Patient is requiring intermittently small doses of norepinephrine, clinically however the patient is much better compared to how he felt when he came in. He is in no distress, this morning he is off norepinephrine, but he didn't require norepinephrine last night, hence I will not transfer the patient out of the ICU yet. Chest x-ray continues to show by basilar atelectasis, possible left lower lobe consolidation which is chronic. Secretions from the tracheostomy are less and less. Renal profile is improving, creatinine is down to 2.9. CBC is normal. Electrolytes are normal. On 10/08/2020 the patient is being seen in follow-up in the intensive unit. His, comfortable and currently is on a trach collar with an FiO2 of 28%. The chest x-ray shows small bilateral pleural effusions and there is adequate expansion of both lungs and a orotracheal tube is in a good location. Note that he had MSSA and Klebsiella in his sputum and patient is currently on IV antibiotics and he is receiving IV Zosyn. Patient continues to have copious amount of secretions through his tracheostomy tube and the patient has a #8 [address] tracheostomy tube in place and he is requiring suctioning every 2 hours at least. He still has a lot of rhonchi He is currently off pressors. He is in normal sinus rhythm. He has also PEG tube for enteral feeding and nutritional support. PEG tube is in place and the patient is on Nepro at the rate of 75 mL an hour. He continues to have output through his ileostomy bag. The patient has significant amount of output through his ileostomy was in the order of every 12 hours. No abdominal distention. No signs of any respiratory distress. The creatinine is improving and is currently down to 2.5 and the patient's hemoglobin is at 8.4. No fever. No other issues overnight. Villafana cath is also in place. He is able to communicate. However he is still profoundly weak/in lower extremities. He is able to raise his arms against gravity. On 10/09/2020 patient seen in follow-up in the intensive care unit. Patient is awake and alert, is following commands, moving all 4 extremities, no signs of any respiratory distress, he is breathing comfortably, on 28% trach collar. His pulse ox is 98%. Still having some secretions from his tracheostomy, related he is on Zosyn for antibiotic coverage. Remains on nebulized bronchodilators, hemodynamically patient has been stable. No requiring any vasopressor support for last 48 hours. No acute events overnight. His sputum cultures were positive for MSSA and Klebsiella pneumonia. Today's labs have been reviewed, normal white count at 8.5, hemoglobin is 9.0, sodium is 137, potassium is 3.7, chloride is 110, B1 is 67, creatinine is 2.18. Patient has been nothing by mouth and has been receiving nutrition in the form of Nepro at 65 with a goal of 65. Patient has had significant diarrhea, liquid yellow output from his il eostomy. No complaints of chest pain. He is in sinus mechanism with a controlled rate. Chest x-ray shows basilar infiltrates and atelectasis with small effusions. On 10/10/2020 patient seen in follow-up in the intensive care unit. He is awake and alert, oriented 3, his calm and cooperative, he denies any acute distress, he still has significant amount of secretions that are being suctioned from the tracheostomy tube, he remains on 20% trach collar. He remains on antibiotics, his sputum cultures were positive for MSSA and Klebsiella pneumonia, he is on Zosyn, he has had no fever or chills. Lung sounds reveal minimal rhonchi, less congested and wheezy on today's exam compared a few days ago. Patient is tolerating tube feedings, he remains strict nothing by mouth, he is on Nepro at a rate of 65 ML per hour with a goal of 65 with 125 ML free water flushes every 3 hours. Abdomen is soft, ileostomy is still producing copious amount of liquid yellow diarrhea, which will be sent for C. diff. There has been a total of 2.5 L in stool output in the last 24 hours. Today's labs have been reviewed, white blood cell count is 8.9, hemoglobin is 8.9, CO2 is 18, sodium is 138, potassium is 3.9, chloride is 110, renal profile is improving despite the diarrhea, with BUN of 63, creatinine is 1.94. Patient is working with physical therapy and yesterday he apparently was up in the chair with assistance, tolerated activity well. On 10/11/2020 patient seen in follow-up in intensive care unit, she remains on 28% trach collar, the pulse ox of 97%, vital signs have been stable, his been afebrile, he did have a run of A. fib with RVR this morning and was restarted on amiodarone drip and was given 150 mg bolus of amiodarone. He is currently back in sinus mechanism with a controlled rate, receiving hydration with LR at 75 ML per hour, he continues to have large volume diarrhea out of his ileostomy, he had to 3.3 L in stool output in last 24 hours, C. diff was negative. tube feedings have been switched to vital AF currently running at 75 ML per hour, patient is getting free water flushes of 125 ML every 3 hours. Yesterday we placed him on lactated Ringer's at rate of 75 ML per hour, he is receiving or sodium bicarbonate tablets, his bicarbonate concentration at today's labs has improved and is up to 23. The renal profile slightly improved. Continues on Zosyn for MSSA and Klebsiella pneumonia in sputum cultures, blood cultures have been negative, patient has been afebrile, blood pressure stable, the patient continues on midodrine. Patient is awake and alert, following commands, responding appropriately, appears tired on today's exam. Denies any acute distress, his been working with physical therapy, he stood at the bedside, he is too weak to walk. Abdomen is soft, mid abdominal incision is covered with a dressing. On 10/12/2020 patient seen in follow-up in the intensive care unit. Patient is up in the recliner, breathing comfortably, she is on 20% trach collar, lung sounds are less congested and rhonchorous on today's exam. He is awake and oriented 3, denies any distress, he is currently on lactated Ringer's at a rate of 75 ML per hour, no recurrence of A. fib RVR overnight, his amiodarone is infusing at 0.5 mg/m and he will be transitioned to oral amiodarone today per cardiology, he remained in sinus rhythm. Vital signs are stable. He is on tube feedings of vital AF a rate of 90 with a goal of 90 with 125 ML free water flushes every 3 hours. His diarrhea output has decreased some, patient had 2 L in the liquid ostomy is stool output in the last 24 hours, he is on Lomotil when necessary. No abdominal pain. no nausea or vomiting no nausea or vomiting. The secretions out of the tracheostomy tube have decreased. Patient has been nothing by mouth, she would like to have a swallow evaluation to be evaluated for oral feedings. Today's chest x-ray has been reviewed showing left lower lobe infiltrate and/or pleural effusion, and improving aeration in the right lower lobe. Today's labs have been reviewed, showing white blood cell count of 12.4, hemoglobin of 9.3, electrolytes within normal limits, renal profile shows slight improvement in creatinine, down to 1.6 today. The patient is seen today 10/13/2020 in follow-up in the intensive care unit. He is currently sitting up in a recliner at the bedside. Awake and alert in no acute distress. He is maintaining good O2 saturations in the 90s on 28% trach collar. He is receiving lactated Ringer's at 75 ML's per hour. He is currently on amiodarone drip at 0.5 mg/m. He is being nourished with vital AF at 90 ML's per hour which is goal with 125 ML free water flushes every 3 hours. He still has significant amount of output and his ileostomy. 1.8 L in the past 24 hours. He's been initiated on Questran and octreotide. Chest x-ray is showing improving left lower lobe infiltrate with small effusion. Sputum was positive for Staphylococcus aureus, Klebsiella pneumoniae. He remains on Zosyn. He is status post 1 unit of packed red blood cells this admission. Current hemoglobin 8.8. Platelets 257. INR 1.4. White count 16.2. Sodium 137. Potassium 4.3. Creatinine 1.65. He is currently in sinus rhythm. He's been initiated on Lovenox 80 mg subcu every 12 hours per cardiology. The plan is to switch back to oral amiodarone. The patient is seen today 10/14/2020 and follow-up in the intensive care unit. He is currently sitting up in a chair at the bedside. Awake and alert in no acute distress. Continues to maintain good O2 saturations in the 90s on 28% t eleanor collar. He does remain on amiodarone drip at 0.5 mg/m. Currently in sinus rhythm. Lactated Ringer's at 20 ML's per hour. Being nourished with vital AF 90 ML's per hour which is goal. Chest x-ray today reveals chronic branch changes with a small left pleural effusion and bibasilar atelectas is/infiltrates. No significant change compared to previous. He is status post 1 unit of packed red blood cells this admission. Current hemoglobin 8.6. INR 1.4. White count 15.3. Sodium 136. Potassium 4.1. Creatinine 1.58. Remains on bronchodilators, Zosyn. Continued on octreotide and Questran with approximately 150 ML's of liquid out of the ileostomy per hour. Yesterday's modified barium swallow revealed evidence of aspiration. Recommended alternative means of nutrition. Continue PEG tube feedings. The patient is seen today 10/15/2020 in follow-up in the intensive care unit. He sitting up in a recliner at the bedside. Awake and alert in no acute distress. Continued on 28% FiO2 via trach collar. Maintaining O2 saturations in the 90s. He is continued on cefepime and bronchodilators. Chest x-ray reveals chronic parenchymal changes with small left greater than right pleural effusions and bibasilar atelectasis/infiltrate. He remains on amiodarone at 0.5 mg/m. No other IV fluids. He is still having high output of the ileostomy 150 ML's per hour. Continued on Questran and Sandostatin without much improvement. White count 16.0. Hemoglobin 8.5. Sodium 136. Potassium 4.2. Creatinine 1.43. Glucose 138. Albumin 2.6. He remains on Vital AF 1.2 at 90 ML's per parag r. On 10/16/2020 the patient is being seen in follow-up in the intensive care unit. His weight is gradually going up and is up to 79 kg. He is stool output is also dropped. He was producing up to 2.7 L of stool output and for yesterday he produced one 1.6 L. He does have an ileostomy with possibly a short gut and he is still receiving enteral feeding via his PEG tube for nutritional support and the patient is currently on vital high protein. He is on Questran, Lomotil and octreotide which has helped somewhat with his stool output. The patient remains on amiodarone 0.5 mg per minute regarding his chronic atrial fibrillation. 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 He is hemodynamically stable. Repeat chest x-ray from today shows only small bilateral pleural effusion. His creatinine is at 1.49. Hemoglobin is today at 8.2 with a white cell count of 14.6. His serum albumin is at 2.5 with a total protein of 5.5. His last swallow evaluation was done on 10/13/2020 and he failed the swallow evaluation. He remains on IV cefepime. In terms of anticoagulation, the patient remains on Lovenox 80 mg subcu every 12 hours. Concern about his absorption on oral medication for that reason the patient was given a combination of amiodarone and subcutaneous Lovenox. On 10/17/2020 I'm seeing Francisco for a follow-up. Is able to sit up on a chair, comfortable hemodynamically stable. Remains in atrial fibrillation. The active issue continues to be a high output from the ileostomy. The patient is receiving vital high protein at the rate of 90 mL an hour and output is so high and the patient has put out approximately 2.7 L of output from his ileostomy amount mainly yellowish/dark greenish material consistent with liquid the stool/feeding material.. We are still dealing with a high output, malabsorption situation and the patient remains on a combination of Questran, Lomotil and octreotide which has not helped a whole lot in terms of his stool output. Stool for C. diff has been negative. Antibiotic coverage is cefepime and Flagyl was also added by infectious disease. He remains on amiodarone drip at 0.5 mg per minute regarding his atrial fibrillation. He is on Lovenox for long-term anticoagulation. His tracheostomy tube in place and the patient has a Shiley tracheostomy tube and is able to speak around the tube and he does have rest or secretions which are being suctioned out every 4-6 hours. He is afebrile. Blood work is essentially stable with a hemoglobin of 7.5 and a white cell count of 15. His BUN is a 54 with a creatinine of 1.49 and his sodium is at 135. No other significant events. He is weak. He is regaining some of his strength back. He does have a good grasp using his hands. His legs remain weak. The patient is awake and oriented 3 and he has no specific complaints. Is sitting up on a recliner. Objective - Vital Signs Vital signs: Vital Signs Temp 98.3 F 10/17/20 04:00 Pulse 96 10/17/20 07:00 Resp 17 10/17/20 07:00 BP 107/57 10/17/20 07:00 Pulse Ox 92 L 10/17/20 07:00 Intake & Output 10/16/20 10/17/20 10/17/20 18:59 06:59 18:59 Intake Total 2080 1430 140 Output Total 2380 1525 100 Balance -300 -95 40 Weight 79 kg 79.3 kg Intake: IV 750 650 50 Cefepime 2 gm In Sodium 100 100 Chloride 0.9% 100 ml @ 25 mls/hr IVPB Q12H [facility] Rx# :[id number] Lactated Ringers 1,000 ml 650 550 50 @ 50 mls/hr IV .Q20H [facility] Rx#:[id number] Intake, IV Titration 250 Amount Amiodarone 450 mg In 250 Dextrose 5% in Water 250 ml @ 0.5 MG/MIN 16.667 mls/hr IV .Q15H [facility] Rx#: [id number] Tube Feeding 990 720 90 Other 90 60 Output: Urine 775 400 100 Stool 1605 1125 Other: Voiding Method Urinal Urinal - Exam GENERAL EXAM: Alert, very pleasant, 80-year-old male patient on the 28% trach collar, comfortable in no apparent distress. HEAD: Normocephalic/atraumatic. EYES: Normal reaction of pupils, equal size. Conjunctiva pink, sclera white. NOSE: Clear with pink turbinates. THROAT: No erythema or exudates. NECK: Midline tracheostomy in place. No masses, no JVD, no thyroid enlargement, no adenopathy. CHEST: No chest wall deformity. Symmetrical expansion. LUNGS: Equal air entry with crackles in the left base. CVS: Regular rate and rhythm, normal S1 and S2, no gallops, no murmurs, no rubs ABDOMEN: Soft, nontender. No hepatosplenomegaly, normal bowel sounds, no guarding or rigidity. PEG tube exit site clean and dry. Midabdominal incision covered with dressing, is healing by secondary intention, sutures are in place, bed is 100% granulated wound bed. Right upper quadrant ileostomy in place connected to a Villafana drainage bag patient is having liquid yellow stool output EXTREMITIES: No clubbing, no edema, no cyanosis, 2+ pulses and upper and lower extremities. MUSCULOSKELETAL: Muscle strength and tone normal. SPINE: No scoliosis or deformity SKIN: No rashes CENTRAL NERVOUS SYSTEM: Alert and oriented -3. No focal deficits, tone is normal in all 4 extremities. PSYCHIATRIC: Alert and oriented -3. Appropriate affect. Intact judgment and insight. - Labs CBC & Chem 7: 10/17/20 03:14 10/17/20 03:14 Labs: Abnormal Lab Results - Last 24 Hours (Table) 10/16/20 10/16/20 10/16/20 Range/Units 11:51 17:52 23:18 WBC (3.8-10.6) k/uL RBC (4.30-5.90) m/uL Hgb (13.0-17.5) gm/dL Hct (39.0-53.0) % RDW (11.5-15.5) % Neutrophils # (1.3-7.7) k/uL Sodium (137-145) mmol/L BUN (9-20) mg/dL Creatinine (0.66-1.25) mg/dL Glucose (74-99) mg/dL POC Glucose (mg/dL) 195 H 119 H 168 H (75-99) mg/dL Total Protein (6.3-8.2) g/dL Albumin (3.5-5.0) g/dL 10/17/20 10/17/20 10/17/20 Range/Units 03:14 03:14 05:23 WBC 15.0 H (3.8-10.6) k/uL RBC 2.65 L (4.30-5.90) m/uL Hgb 7.5 L (13.0-17.5) gm/dL Hct 23.9 L (39.0-53.0) % RDW 18.9 H (11.5-15.5) % Neutrophils # 13.1 H (1.3-7.7) k/uL Sodium 135 L (137-145) mmol/L BUN 54 H (9-20) mg/dL Creatinine 1.49 H (0.66-1.25) mg/dL Glucose 118 H (74-99) mg/dL POC Glucose (mg/dL) 163 H (75-99) mg/dL Total Protein 5.7 L (6.3-8.2) g/dL Albumin 2.5 L (3.5-5.0) g/dL Assessment and Plan Plan: 1 Bilateral lower lobe pneumonia with sepsis. The patient's chest x-ray shows interval improvement in the bilateral pleural effusions. The patient continues to have respiratory secretions. His previous cultures have shown a combination of Klebsiella and MSSA. The patient has been on IV cefepime since 09/13/2020. The Flagyl was also added by infectious disease. The chest x-ray from today sh ows small bilateral pleural effusions and small infiltrates in lung bases. There is elevation of the lungs bilaterally. Tracheostomy tube is in a good location. 2 Acute on chronic hypoxic respiratory failure secondary to pneumonia and underlying COPD, currently on a 28% trach collar and the patient required tracheostomy following a prolonged intubation mechanical ventilation post cardiac surgery. 3 Bilateral lower lobe pneumonia, secondary to MSSA, and Klebsiella pneumonia (cultured in the sputum) 4 Sepsis secondary to pneumonia, currently off pressors 5 Acute on chronic kidney injury secondary to sepsis, , improving, current creatinine 1.49 6 Moderate-severe COPD. 7 History of triple-vessel coronary artery disease, bypass surgery on 07/18/2020 with multiple postoperative complications 8 History of tracheostomy mostly because of failure to wean. The patient has a #8 [address] tracheostomy tube in place 9 Benign essential hypertension. 10 Type 2 diabetes. 11 Dyslipidemia. 12 Chronic atrial fibrillation, on amiodarone and on anticoagulation therapy with Lovenox 13 History of hypothyroidism. 14 History of ileostomy on 08/02/2020. 15 Chronic anemia 16 generalized motor weakness and debility seconds above-mentioned comorbidities 17 Large volume diarrhea, out of the ileostomy, C. diff has been ruled out and initiated on octreotide and Questran and Lomotil Plan: Chest x-ray and labs reviewed and it shows improvement in the volume status and there are only small bilateral pleural effusions. Continue cefepime, bronchodilators and cefepime Continues with high output via the ileostomy Continued on octreotide and Questran Will see if pharmacy has tincture of opium Recheck stool for C. diff is negative Pulmonary toileting and frequent suctioning lactated Ringer's at 50 MLS per hour Consider stopping the amiodarone drip and trying this patient on 400 mg of amiodarone twice a day in addition to Lopressor 50 mg 3 times a day and continue the Lovenox shots for now Tracheostomy care and frequent suctioning Physical therapy We'll continue to monitor him closely here in the ICU We will continue to follow and make further recommendations based on his clinical status
[2020-10-17] MEDS: IPRATROPIUM-ALBUTEROL 3 ML NEB INHALATION SCH ×4 (08:00→20:25)
[2020-10-17] MEDS: BUDESONIDE 1 MG/2 ML NEBU INHALATION SCH ×2 (08:00→20:25)
--- NOTE | 2020-10-17 08:20 | XR ---
EXAMINATION TYPE: XR chest 1V portable DATE OF EXAM: 10/17/2020 COMPARISON: 10/16/2020 INDICATION: Pneumonia TECHNIQUE: Single frontal view of the chest is obtained. FINDINGS: The heart size is normal. The pulmonary vasculature is normal. Emphysematous changes at the upper lung valdez. Some mild atelectatic change may be at the right base . A small left pleural effusion is present. Some adjacent atelectasis may present. Sternotomy wires f rom prior CABG is present. Tracheostomy tube is in the midline. IMPRESSION: 1. Small left pleural effusion with minimal bibasilar atelectasis, stable from comparison. 2. Tracheostomy tube remains in position. 3. Emphysematous changes
[2020-10-17] MEDS: MIDODRINE 5 MG TAB PO SCH ×2 (08:30→16:03)
[2020-10-17] MEDS: METOPROLOL TARTRATE 25 MG TAB PO SCH ×3 (08:30→21:12)
[2020-10-17] MEDS: ASPIRIN 81 MG PO SCH (08:30)
[2020-10-17] MEDS: ACETAMINOPHEN TAB 325 MG TAB PO PRN ×2 (08:30→21:58)
[2020-10-17] MEDS: AMIODARONE 200 MG TAB PO SCH ×2 (08:31→21:11)
[2020-10-17] MEDS: ENOXAPARIN 80 MG/0.8 ML SYRINGE SQ SCH ×2 (08:31→21:11)
[2020-10-17] MEDS: TAMSULOSIN 0.4 MG CAP.ER.24H PO SCH (08:31)
[2020-10-17] MEDS: CEFEPIME 2 GM in SODIUM CHLORIDE 0.9% 100 ML IVPB SCH ×2 (08:31→21:11)
[2020-10-17] MEDS: OCTREOTIDE 100 MCG/ML INJ SQ SCH ×2 (08:33→16:03)
[2020-10-17] MEDS: metroNIDAZOLE 500 MG TAB PO SCH ×3 (09:45→21:12)
[2020-10-17] MEDS: CHOLESTYRAMINE (WITH SUGAR) 4 GM PACKET PO SCH ×2 (09:46→17:56)
[2020-10-17] MEDS: DARBEPOETIN ALFA 40 MCG/0.4 ML SYRINGE SQ SCH (09:48)
--- NOTE | 2020-10-17 10:34 | P.PN ---
Subjective Patient is seen in follow for acute kidney injury. Renal function stable. Has been voiding. Denies chest pain or shortness of breath. He is receiving tube feeding. Continues to have high output from the ileostomy. Currently on amiodarone drip for A. fib but will be switched to oral today. Hemodynamically stable. No changes overnight. Vital signs are stable. General: The patient appeared well nourished and normally developed. HEENT: Tracheostomy noted. LUNGS: Breath sounds decreased. HEART: Rate and Rhythm are regular. ABDOMEN: Soft, no distention noted. Ileostomy noted. EXTREMITITES: No edema. Objective - Vital Signs Vital signs: Vital Signs Temp 97 F L 10/17/20 08:00 Pulse 68 10/17/20 10:00 Resp 23 10/17/20 10:00 BP 104/59 10/17/20 10:00 Pulse Ox 100 10/17/20 10:00 Intake & Output 10/16/20 10/17/20 10/17/20 18:59 06:59 18:59 Intake Total 2080 1430 900 Output Total 2380 1525 100 Balance -300 -95 800 Weight 79 kg 79.3 kg Intake: IV 750 650 200 Cefepime 2 gm In Sodium 100 100 Chloride 0.9% 100 ml @ 25 mls/hr IVPB Q12H [facility] Rx# :[id number] Lactated Ringers 1,000 ml 650 550 200 @ 50 mls/hr IV .Q20H [facility] Rx#:[id number] Intake, IV Titration 250 250 Amount Amiodarone 450 mg In 250 250 Dextrose 5% in Water 250 ml @ 0.5 MG/MIN 16.667 mls/hr IV .Q15H [facility] Rx#: [id number] Tube Feeding 990 720 360 Other 90 60 90 Output: Urine 775 400 100 Stool 1605 1125 Other: Voiding Method Urinal Urinal Urinal - Labs CBC & Chem 7: 10/17/20 03:14 10/17/20 03:14 Labs: Abnormal Lab Results - Last 24 Hours (Table) 10/16/20 10/16/20 10/16/20 Range/Units 11:51 17:52 23:18 WBC (3.8-10.6) k/uL RBC (4.30-5.90) m/uL Hgb (13.0-17.5) gm/dL Hct (39.0-53.0) % RDW (11.5-15.5) % Neutrophils # (1.3-7.7) k/uL Sodium (137-145) mmol/L BUN (9-20) mg/dL Creatinine (0.66-1.25) mg/dL Glucose (74-99) mg/dL POC Glucose (mg/dL) 195 H 119 H 168 H (75-99) mg/dL Total Protein (6.3-8.2) g/dL Albumin (3.5-5.0) g/dL 10/17/20 10/17/20 10/17/20 Range/Units 03:14 03:14 05:23 WBC 15.0 H (3.8-10.6) k/uL RBC 2.65 L (4.30-5.90) m/uL Hgb 7.5 L (13.0-17.5) gm/dL Hct 23.9 L (39.0-53.0) % RDW 18.9 H (11.5-15.5) % Neutrophils # 13.1 H (1.3-7.7) k/uL Sodium 135 L (137-145) mmol/L BUN 54 H (9-20) mg/dL Creatinine 1.49 H (0.66-1.25) mg/dL Glucose 118 H (74-99) mg/dL POC Glucose (mg/dL) 163 H (75-99) mg/dL Total Protein 5.7 L (6.3-8.2) g/dL Albumin 2.5 L (3.5-5.0) g/dL Assessment and Plan Plan: Assessment: 1. Acute kidney injury secondary to ATN secondary to hypotension and hemodynamic instability. Renal function improved from admission. Creatinine stable at 1.49 today. No hydronephrosis noted on kidney ultrasound. 2. Chronic kidney disease stage III with baseline creatinine 1.2-1.5 secondary to nephrosclerosis. 3. A. fib with RVR. Maintained on IV amiodarone. 4. Hypernatremia secondary to lack of oral water intake. Resolved. 5. Failed swallow eval maintained on tube feeding. 6. Diabetes mellitus. 7. Anemia of chronic kidney disease. Maintained on Aranesp. Status post IV iron and blood transfusion this admission. 8. 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 Currently has ileostomy. 9. Sepsis secondary to pneumonia maintained on antibiotics. Plan: Maintain tube feeding. Continue to monitor renal function and urine output. Avoid nephrotoxins. No changes from nephrology standpoint.
[2020-10-17 11:36] LABS: Glucose,Whole Blood 174 mg/dL (75-99)
--- NOTE | 2020-10-17 15:06 | P.PN ---
Subjective Progress Note Date: 10/17/20 CHIEF COMPLAINT: Respiratory distress HISTORY OF PRESENT ILLNESS: Patient is being followed in regards to his abdominal wound at incision site. Patient remains in the ICU. He is sitting at bedside chair. He denies any abdominal pain. Patient is having high ileostomy output. He remains on Questran and Lomotil and Sandostatin to help slow ileostomy output. He does likely have short gut syndrome. Antibiotics switched from Zosyn to cefepime by ID. Zosyn may have contributed to high ostomy output. Tube feedings changed to vital 1.2. He failed his modified barium swallow it did show evidence of aspiration. Patient is afebrile. Trach collaring 100%. WBC 15 hemoglobin 7.5 creatinine 1.49 PHYSICAL EXAM: VITAL SIGNS: Reviewed. GENERAL: Well-developed in no acute distress. HEENT: No sclera icterus. Extraocular movements grossly intact. Moist buccal mucosa. Head is atraumatic, normocephalic. ABDOMEN: Soft. Nondistended. Nontender. Dressing clean dry and intact. Patient has a yellowish liquidy stool coming through the ileostomy. NEUROLOGIC: Alert and oriented. Cranial nerves II through XII grossly intact. ASSESSMENT: 1. Abdominal wound at surgical incision site. 2. High ileostomy output 3. History of ischemic small bowel with evidence of pneumatosis status post small bowel resection on 07/24/2020. 4. History of intraperitoneal hemorrhage and small bowel ischemia status post exploratory laparotomy, washout of peritoneal cavity and ileostomy with small bowel resection on 08/02/2020 5. 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 Acute hypoxic respiratory failure secondary to pneumonia 7. Sepsis secondary to pneumonia 8. Acute kidney injury 9. chronic Anemia: With known chronic kidney disease and iron deficiency. He did require blood transfusion and IV Iron during this admission PLAN: -Recommend ileostomy reversal when patient is medically stable -Continue wound care with Aquacel dressing -Continue Sandostatin, Lomotil and Questran to help with high-volume ileostomy output -Continue supportive care -Continue ICU management -Continue antibiotics per ID Physician Interventional Cardiologist note has been reviewed by physician. Signing provider agrees with the documented findings, assessment, and plan of care. Objective - Vital Signs Vital signs: Vital Signs Temp 96.5 F L 10/17/20 12:00 Pulse 79 10/17/20 15:00 Resp 26 H 10/17/20 15:00 BP 115/64 10/17/20 15:00 Pulse Ox 100 10/17/20 15:00 Intake & Output 10/16/20 10/17/20 10/17/20 18:59 06:59 18:59 Intake Total 2080 1430 1630 Output Total 2380 1525 1250 Balance -300 -95 380 Weight 79 kg 79.3 kg Intake: IV 750 650 450 Cefepime 2 gm In Sodium 100 100 Chloride 0.9% 100 ml @ 25 mls/hr IVPB Q12H [facility] Rx# :[id number] Lactated Ringers 1,000 ml 650 550 450 @ 50 mls/hr IV .Q20H [facility] Rx#:[id number] Intake, IV Titration 250 250 Amount Amiodarone 450 mg In 250 250 Dextrose 5% in Water 250 ml @ 0.5 MG/MIN 16.667 mls/hr IV .Q15H [facility] Rx#: [id number] Tube Feeding 990 720 810 Other 90 60 120 Output: Urine 775 400 400 Stool 1605 1125 850 Other: Voiding Method Urinal Urinal Urinal - Labs CBC & Chem 7: 10/17/20 03:14 10/17/20 03:14 Labs: Abnormal Lab Results - Last 24 Hours (Table) 10/16/20 10/16/20 10/17/20 Range/Units 17:52 23:18 03:14 WBC 15.0 H (3.8-10.6) k/uL RBC 2.65 L (4.30-5.90) m/uL Hgb 7.5 L (13.0-17.5) gm/dL Hct 23.9 L (39.0-53.0) % RDW 18.9 H (11.5-15.5) % Neutrophils # 13.1 H (1.3-7.7) k/uL Sodium (137-145) mmol/L BUN (9-20) mg/dL Creatinine (0.66-1.25) mg/dL Glucose (74-99) mg/dL POC Glucose (mg/dL) 119 H 168 H (75-99) mg/dL Total Protein (6.3-8.2) g/dL Albumin (3.5-5.0) g/dL 10/17/20 10/17/20 10/17/20 Range/Units 03:14 05:23 11:35 WBC (3.8-10.6) k/uL RBC (4.30-5.90) m/uL Hgb (13.0-17.5) gm/dL Hct (39.0-53.0) % RDW (11.5-15.5) % Neutrophils # (1.3-7.7) k/uL Sodium 135 L (137-145) mmol/L BUN 54 H (9-20) mg/dL Creatinine 1.49 H (0.66-1.25) mg/dL Glucose 118 H (74-99) mg/dL POC Glucose (mg/dL) 163 H 174 H (75-99) mg/dL Total Protein 5.7 L (6.3-8.2) g/dL Albumin 2.5 L (3.5-5.0) g/dL
--- NOTE | 2020-10-17 16:19 | P.PN ---
Subjective This is a pleasant 80-year-old male past medical history significant for coronary artery disease status post CABG July 2020, complicated postoper ative course with multiple abdominal surgeries, intubations and eventually underwent tracheostomy and PEG tube placement. He been discharged to [facility] however presented back to the hospital 08/01/2021 secondary to shortness breath. There has been some concern about whether patient is absorbing all of his medications as he does have extensive output from his ostomy. Therefore he was placed on amiodarone as well as subcutaneous Lovenox. Patient is seen and examined this morning at 0750 sitting in chair, no acute distress. He is not able to talk over his trach however denies any chest pain or pressure. He admits to some discomfort of his buttocks and back from sitting for prolonged periods of time. He remains in normal sinus rhythm currently. He is receiving enteral feeding via his PEG tube for nutritional support. He is currently being maintained on amiodarone gtt, aspirin 81mg daily, Lipitor 40mg nightly, Lovenox SQ, Midodrine 10mg Q8hr, Metoprolol tartrate 25mg TID, PHYSICAL EXAMINATION Blood pressure 100/54 heart rate 96 afebrile and maintaining oxygen saturation on trach collar at 28 FiO2. CONSTITUTIONAL: No apparent distress, chronically ill-appearing, tracheostomy and PEG tube. HEENT: Head is normocephalic. Pupils are equal, round. Sclerae anicteric. Mucous membranes of the mouth are moist. No JVD. No carotid bruit. CHEST EXAMINATION: Lungs diminished bilaterally No chest wall tenderness is noted on palpation or with deep breathing. HEART EXAMINATION: Regular rate and rhythm. S1, S2 heard. No murmurs, gallops or rub. ABDOMEN: Soft, nontender. Positive bowel sounds. Ileostomy draining liquid yellow/brown stool SKIN: Coccyx pressure ulcer, right heel pressure ulcer EXTREMITIES: 2+ peripheral pulses, no lower extremity edema and no calf tenderness. NEUROLOGIC EXAMINATION: Patient is awake, alert and oriented x3. ASSESSMENT 1. Paroxysmal atrial fibrillation, currently sinus rhythm 2. Bilateral lower lobe pneumonia 3. Acute on chronic respiratory failure 4. Acute kidney injury 5. COPD 6. CAD with triple-vessel disease status post bypass 07/18/2020 7. Anemia 8. Hypertension 9. Large volume of diarrhea, questionable absorption of some of his me dications. PLAN -Discontinue IV amiodarone, and start amiodarone 400mg PO BID. Will monitor heart rhythm with transition to PO. Patient is currently maintaining a normal sinus rhythm. Also continue subcutaneous Lovenox for anticoagulation. Continue antibiotics and pulmonary recommendations appreciated, monitor his pressure closely. Monitor hemoglobin and anemia. Continue aspirin 81mg daily, Lipitor 40mg nightly, Midodrine 10mg Q8hr, Metoprolol tartrate 25mg TID, Continue supportive care. Further recommendations to follow. Objective - Vital Signs Vital signs: Vital Signs Temp 96.5 F L 10/17/20 12:00 Pulse 79 10/17/20 15:00 Resp 26 H 10/17/20 15:00 BP 115/64 10/17/20 15:00 Pulse Ox 100 10/17/20 15:00 Intake & Output 10/16/20 10/17/20 10/17/20 18:59 06:59 18:59 Intake Total 2080 1430 1630 Output Total 2380 1525 1600 Balance -300 -95 30 Weight 79 kg 79.3 kg Intake: IV 750 650 450 Cefepime 2 gm In Sodium 100 100 Chloride 0.9% 100 ml @ 25 mls/hr IVPB Q12H [facility] Rx# :[id number] Lactated Ringers 1,000 ml 650 550 450 @ 50 mls/hr IV .Q20H [facility] Rx#:[id number] Intake, IV Titration 250 250 Amount Amiodarone 450 mg In 250 250 Dextrose 5% in Water 250 ml @ 0.5 MG/MIN 16.667 mls/hr IV .Q15H [facility] Rx#: [id number] Tube Feeding 990 720 810 Other 90 60 120 Output: Urine 775 400 400 Stool 1605 1125 1200 Other: Voiding Method Urinal Urinal Urinal - Labs CBC & Chem 7: 10/17/20 03:14 10/17/20 03:14 Labs: Abnormal Lab Results - Last 24 Hours (Table) 10/16/20 10/16/20 10/17/20 Range/Units 17:52 23:18 03:14 WBC 15.0 H (3.8-10.6) k/uL RBC 2.65 L (4.30-5.90) m/uL Hgb 7.5 L (13.0-17.5) gm/dL Hct 23.9 L (39.0-53.0) % RDW 18.9 H (11.5-15.5) % Neutrophils # 13.1 H (1.3-7.7) k/uL Sodium (137-145) mmol/L BUN (9-20) mg/dL Creatinine (0.66-1.25) mg/dL Glucose (74-99) mg/dL POC Glucose (mg/dL) 119 H 168 H (75-99) mg/dL Total Protein (6.3-8.2) g/dL Albumin (3.5-5.0) g/dL 10/17/20 10/17/20 10/17/20 Range/Units 03:14 05:23 11:35 WBC (3.8-10.6) k/uL RBC (4.30-5.90) m/uL Hgb (13.0-17.5) gm/dL Hct (39.0-53.0) % RDW (11.5-15.5) % Neutrophils # (1.3-7.7) k/uL Sodium 135 L (137-145) mmol/L BUN 54 H (9-20) mg/dL Creatinine 1.49 H (0.66-1.25) mg/dL Glucose 118 H (74-99) mg/dL POC Glucose (mg/dL) 163 H 174 H (75-99) mg/dL Total Protein 5.7 L (6.3-8.2) g/dL Albumin 2.5 L (3.5-5.0) g/dL
[2020-10-17 17:53] LABS: Glucose,Whole Blood 148 mg/dL (75-99)
[2020-10-17] MEDS: QUEtiapine 25 MG TAB PO SCH (21:11)
[2020-10-17] MEDS: ATORVASTATIN 40 MG TAB PEG/G-TUBE SCH (21:12)
[2020-10-17] MEDS: FAMOTIDINE 20 MG TAB PO SCH (21:12)
[2020-10-17] MEDS: MELATONIN 3 MG TABLET PO PRN (21:59)
--- NOTE | 2020-10-17 23:18 | PN ---
PROGRESS NOTE DATE OF SERVICE: 10/17/2020 REASON FOR FOLLOWUP: 1. Pneumonia. 2. Elevated white count. INTERVAL HISTORY: The patient is currently afebrile. The patient is breathing comfortably. The patient denies having any chest pain or shortness of breath. Occasional cough. No abdominal pain. Still has significant output in his ileostomy. PHYSICAL EXAMINATION: Blood pressure 113/65, pulse of 79, temperature of 97.8. He is 98% on trach collar. General description is an elderly male lying in bed in no distress. RESPIRATORY SYSTEM: Unlabored breathing. Coarse breath sounds at the bases bilaterally. No wheeze. HEART: S1, S2. Regular rate and rhythm. ABDOMEN: Soft. No tenderness. LABS: Hemoglobin 7.5, white count 15, with a BUN of 24, creatinine 1.49. DIAGNOSTIC IMPRESSION AND PLAN: 1. Patient with admission to hospital with difficulty breathing with evidence of pneumonia. Sputum has been Klebsiella and MSSA, covered with cefepime and Flagyl with concern for possible aspiration. 2. Patient with persistent significant output in his ileostomy. C difficile negative and not responding to the current treatment. Consideration for possible TPN and bowel rest. Continue with supportive care. MMODL / IJN: [id number] /
[2020-10-17 23:47] LABS: Glucose,Whole Blood 135 mg/dL (75-99)
[2020-10-18] MEDS: DIPHENOX-ATROP 2.5-0.025 MG 1 EACH TAB PO SCH ×4 (00:01→17:05)
[2020-10-18] MEDS: INSULIN ASPART (NovoLOG) 100 UNIT/ML VIAL SQ SCH ×4 (00:01→17:41)
[2020-10-18] MEDS: MIDODRINE 5 MG TAB PO SCH ×4 (00:01→21:53)
--- NOTE | 2020-10-18 01:20 | P.PN ---
Subjective This is a pleasant 80 years old male with past medical history of coronary artery disease, COPD, diabetes mellitus, hyperlipidemia, hypertension, hy pothyroidism, coronary artery disease status post cardiac cath and stent placement. He recently underwent double coronary artery bypass grafting for his triple-vessel coronary artery disease. He was in the hospital from 07/18/20- 08/25/2020 pt has tracheostomhy and PEG tube , Information were obtained with the help of at bedside, he presents with confusion, and a lot of secretion Why he states that after been discharged from [facility] and he went to [facility] aren't states therefore one month and 5 days and then he was discharged a few days ago to [facility] at [facility] on Friday, however over the weekend he has more congestion, he has weak cough and needed frequent suctioning, patient was able to talk weekly his little confused but he can't communicate through gesture, he denies pain but he is tachypneic He has tracheostomy, PEG tube and try to colostomy. Admitted with-hypotension secondary to severe sepsis secondary to pneumonia, aspiration pneumonia, acute hypoxic respiratory failure, acute kidney injury secondary to ATN, elevated sodium, increased lactic acid, elevated troponin felt to be from tachycardia. Recent history of intraperitoneal hemorrhage status post laboratory with washout and ileostomy on 08/02/2020. Tracheostomy. C. diff ruled out. 10/13/2020 History the patient developed A. fib and he was started on amiodarone drip which helped to convert him to sinus rhythm today with a plan for him to convert him to oral amiodarone, however there is concerned about his disruption, he has 2 palpating through PEG tube but he has high output ileostomy with stool is light yellow in color for example he has about 1.2 L discharge this morning. Also he is on IV fluids in the form of lingular left at 75 milliliters per hour Patient is also covered with Zosyn and water flushes lowered to 30 mL every 4 hours Also he has low urine output with bladder scan and possible straight cath if needed Mistiran is admitted today 10/14/2020 This is a pleasant 80 years old male with past tracheostomy was sent originally from [facility] for respiratory distress Patient is monitored closely in the ICU. He is with short bowel syndrome and high output enterostomy about 100-150 mL/h with yellow stool. He is getting tube feeding through PEG tube and running at 90 mL/h with 30 mL water flushes and he is tolerating that well Yesterday patient underwent modified barium swallow test and he failed the test. Most likely patient with aspiration pneumonia on the top ,he is on antibiotics Creatinine today is 1.5 which is at baseline as he is CKD stage III and baseline creatinine 1.2-1.3 He is still on amiodarone drip for his A. fib with RVR also he is still on Lovenox 80 mg twice daily Atibiotics were adjusted from Zosyn to cefepime today under supervision of ID team 10/15/2020 Patient is seen and examined in the ICU. He had uneventful night yesterday. He still have high output discharge from his ileostomy although it's today slightly thicker. A still could not take orally and PEG Tube. Also He Is Getting Amiodarone Drip He is a slightly tachypneic. Afebrile. Saturating 98% on 28% FiO2. Not tachycardic. Labs showed leukocytosis with WBC 16 K. Hemoglobin is 8.5. Creatinine slightly down today to 1.4. Glucose is controlled Sputum culture is growing staph feeling coccus areas and Klebsiella pneumoniae both are sensitive to cefepime Patient remains on octreotide and Questran 10/16/2020 Patient is awake lying comfortable in bed Still have high output ileostomy to. He tolerates peg tube feeding well. He is breathing quietly This is a switch to sinus and is currently on oral amiodarone with cardiology was on the case patient remains on cefepime and Flagyl is been admitted by ID team as well for faster healing Sutures team are considering ileostomy reversal 10/17/20 Patients remain stable with high output from his ileostomy 2, with no significant abdominal pain but is getting PEG tube placement Surgery team of the case and the plan to reverse ileostomy as her 10.20 is more stable Cardiology are following the patient for his A. fib and adjusted medication including amiodarone which is switched to oral. Continue with Lovenox subcutaneously Vitals are stable. And he is saturating 97% on trach collar. Past leukocytosis of 13 K, hemoglobin 7.5. Creatinine is stable at 1.4 sugars controlled. Continue with cefepime Review of systems CONSTITUTIONAL: No fever, no malaise, no fatigue. HEENT: No recent visual problems or hearing problems. Denied any sore throat. CARDIOVASCULAR: No orthopnea, PND, no palpitations, no syncope. PULMONARY: No shortness of breath, no cough, no hemoptysis. GASTROINTESTINAL: No diarrhea, no nausea, no vomiting, no abdominal pain. Normoactive bowel sounds. Active Medications Generic Name Dose Route Start Last Admin Trade Name Freq PRN Reason Stop Dose Admin Acetaminophen 650 mg 10/13/20 22:55 10/16/20 21:24 Acetaminophen Tab 325 Mg Tab PO 650 mg Q6HR PRN Administration Fever and/ or Pain Albuterol/Ipratropium 3 ml 10/04/20 08:00 10/16/20 23:05 Ipratropium-Albuterol 3 Ml Neb INHALATION 3 ml RT-QID WADE Administration Albuterol/Ipratropium 3 ml 10/03/20 21:23 10/03/20 21:27 Ipratropium-Albuterol 3 Ml Neb INHALATION 3 ml RT-Q2H PRN Administration Shortness Of Breath Or Wheezing Aspirin 81 mg 10/07/20 18:30 10/16/20 07:53 Aspirin 81 Mg PO 81 mg DAILY WADE Administration Atorvastatin Calcium 40 mg 10/03/20 20:00 10/16/20 21:24 Atorvastatin 40 Mg Tab PEG/G-TUBE 40 mg HS@2000 WADE Administration Budesonide 1 mg 10/04/20 08:00 10/16/20 23:06 Budesonide 1 Mg/2 Ml Nebu INHALATION 1 mg RT-BID WADE Administration Cholestyramine Resin 4 gm 10/06/20 10:00 10/16/20 18:40 Cholestyramine (With Sugar) 4 Gm Packet PO 4 gm BID@1000,1800 WADE Administration Darbepoetin Alex 40 mcg 10/03/20 10:00 10/10/20 12:18 Darbepoetin Alex 40 Mcg/0.4 Ml Syringe SQ 40 mcg Q7D WADE Administration Diphenoxylate HCl/Atropine 1 each 10/12/20 12:00 10/16/20 23:25 Diphenox-Atrop 2.5-0.025 Mg 1 Each Tab PO 1 each Q6HR WADE Administration Enoxaparin Sodium 80 mg 10/13/20 09:00 10/16/20 21:23 Enoxaparin 80 Mg/0.8 Ml Syringe SQ 80 mg Q12HR WADE Administration Famotidine 20 mg 10/07/20 21:00 10/16/20 21:24 Famotidine 20 Mg Tab PO 20 mg HS WADE Administration Amiodarone HCl 450 mg/ 250 mls @ 16.667 mls/hr 10/12/20 23:00 10/16/20 12:35 Dextrose/Water IV 0.5 mg/min .Q15H WADE 16.667 mls/hr Administration Protocol 0.5 MG/MIN Cefepime HCl 2 gm/ Sodium 100 mls @ 25 mls/hr 10/14/20 21:00 10/16/20 21:23 Chloride IVPB 25 mls/hr Q12H WADE Administration Lactated Ringer's 1,000 mls @ 50 mls/hr 10/15/20 16:00 10/16/20 17:13 Lactated Ringers IV 50 mls/hr .Q20H WADE Administration Insulin Aspart 0 unit 10/04/20 00:00 10/16/20 23:25 Insulin Aspart (Novolog) 100 Unit/Ml Vial SQ 2 unit Q6H WADE Administration Protocol Levothyroxine Sodium 50 mcg 10/04/20 06:00 10/16/20 06:12 Levothyroxine 50 Mcg Tab PEG/G-TUBE 50 mcg DAILY@0600 WADE Administration Melatonin 3 mg 10/08/20 20:46 10/16/20 21:23 Melatonin 3 Mg Tablet PO 3 mg HS PRN Administration Insomnia Metoprolol Tartrate 25 mg 10/03/20 10:00 10/16/20 21:24 Metoprolol Tartrate 25 Mg Tab PO 25 mg TID WADE Administration Metronidazole 500 mg 10/16/20 23:00 10/16/20 23:26 Metronidazole 500 Mg Tab PO 500 mg TID WADE Administration Midodrine 10 mg 10/05/20 08:15 10/16/20 23:25 Midodrine 5 Mg Tab PO 10 mg Q8HR WADE Administration Miscellaneous Information 1 each 10/09/20 18:33 Potassium Replacement Protocol 1 Each Misc MISCELLANE DAILY PRN Per Protocol Protocol Naloxone HCl 0.2 mg 10/02/20 11:26 Naloxone 0.4 Mg/Ml 1 Ml Vial IV Q2M PRN Opioid Reversal Octreotide Acetate 100 mcg 10/12/20 16:00 10/16/20 23:25 Octreotide 100 Mcg/Ml Inj SQ 100 mcg Q8HR WADE Administration Ondansetron HCl 4 mg 10/02/20 11:26 10/11/20 03:52 Ondansetron 4 Mg/2 Ml Vial IVP 4 mg Q8HR PRN Administration Nausea And Vomiting Quetiapine Fumarate 25 mg 10/03/20 21:00 10/16/20 21:23 Quetiapine 25 Mg Tab PO 25 mg HS WADE Administration Tamsulosin HCl 0.4 mg 10/03/20 09:30 10/16/20 07:53 Tamsulosin 0.4 Mg Cap.Er.24h PO 0.4 mg [id number]-[id number] WADE Administration Objective - Vital Signs Vital signs: Vital Signs Temp 96.5 F L 10/17/20 12:00 Pulse 74 10/17/20 13:00 Resp 27 H 10/17/20 13:00 BP 102/54 10/17/20 13:00 Pulse Ox 98 10/17/20 13:00 Intake & Output 10/16/20 10/17/20 10/17/20 18:59 06:59 18:59 Intake Total 2080 1430 1350 Output Total 2380 1525 600 Balance -300 -95 750 Weight 79 kg 79.3 kg Intake: IV 750 650 350 Cefepime 2 gm In Sodium 100 100 Chloride 0.9% 100 ml @ 25 mls/hr IVPB Q12H [facility] Rx# :[id number] Lactated Ringers 1,000 ml 650 550 350 @ 50 mls/hr IV .Q20H [facility] Rx#:[id number] Intake, IV Titration 250 250 Amount Amiodarone 450 mg In 250 250 Dextrose 5% in Water 250 ml @ 0.5 MG/MIN 16.667 mls/hr IV .Q15H [facility] Rx#: [id number] Tube Feeding 990 720 630 Other 90 60 120 Output: Urine 775 400 100 Stool 1605 1125 500 Other: Voiding Method Urinal Urinal Urinal - Exam -GENERAL: The patient is awake, he is more alert. He is well nourished. HEENT: Pupils are round and equally reacting to light. EOMI. No scleral icterus. No conjunctival pallor. Normocephalic, atraumatic. No pharyngeal erythema. No thyromegaly. CARDIOVASCULAR: S1 and S2 present. No murmurs, rubs, or gallops. -PULMONARY: Chest is clear to auscultation, no wheezing or crackles. Tachypneic. Status post tracheostomy with some secretions -ABDOMEN: Soft, nontender, nondistended, normoactive bowel sounds. No palpable organomegaly. PEG tube is in place, right colostomy. Abdominal midline wound, no purulent discharge but yellow , status post debridement by surgical team with dressing is in place MUSCULOSKELETAL: No joint swelling or deformity. EXTREMITIES: No cyanosis, clubbing, or pedal edema. NEUROLOGICAL: Gross neurological examination did not reveal any focal deficits. SKIN: No rashes. No petechiae - Labs CBC & Chem 7: 10/17/20 03:14 10/17/20 03:14 Labs: Abnormal Lab Results - Last 24 Hours (Table) 10/16/20 10/16/20 10/17/20 Range/Units 17:52 23:18 03:14 WBC 15.0 H (3.8-10.6) k/uL RBC 2.65 L (4.30-5.90) m/uL Hgb 7.5 L (13.0-17.5) gm/dL Hct 23.9 L (39.0-53.0) % RDW 18.9 H (11.5-15.5) % Neutrophils # 13.1 H (1.3-7.7) k/uL Sodium (137-145) mmol/L BUN (9-20) mg/dL Creatinine (0.66-1.25) mg/dL Glucose (74-99) mg/dL POC Glucose (mg/dL) 119 H 168 H (75-99) mg/dL Total Protein (6.3-8.2) g/dL Albumin (3.5-5.0) g/dL 10/17/20 10/17/20 10/17/20 Range/Units 03:14 05:23 11:35 WBC (3.8-10.6) k/uL RBC (4.30-5.90) m/uL Hgb (13.0-17.5) gm/dL Hct (39.0-53.0) % RDW (11.5-15.5) % Neutrophils # (1.3-7.7) k/uL Sodium 135 L (137-145) mmol/L BUN 54 H (9-20) mg/dL Creatinine 1.49 H (0.66-1.25) mg/dL Glucose 118 H (74-99) mg/dL POC Glucose (mg/dL) 163 H 174 H (75-99) mg/dL Total Protein 5.7 L (6.3-8.2) g/dL Albumin 2.5 L (3.5-5.0) g/dL Assessment and Plan Assessment: sepsis related to his pneumonia. 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 History of triple vessel coronary artery disease status post bypass surgery on 07/18/2020 Atrial fibrillation on Eliquis (on hold), currently covered with Lovenox Stage II sacral pressure ulcer Recent history of intraperitoneal hemorrhage status post exploratory laparotomy with washout and ileostomy on 08/02/2020 Hypothyroidism Moderate to severe COPD, with no acute exacerbation Remote history of nicotine dependence Chronic kidney disease stage II Hypertension Hyperlipidemia Type 2 diabetes mellitus No code Plan: This is a pleasant 80 years old male who presents with dyspnea and hypotension possible secondary to aspiration pneumonia. on cefepime. Also he has high output ileostomy, continue with tube feeding and water flushes continue with IV fluid. At [facility] and follow-up stool output. Cardiology on the case for his A. fib with RVR, currently with amiodarone Pulmonary and cardiology consult, continue with IV fluids, continue with oxygen as needed. Continue with amiodarone drip and metoprolol. Continue with anticoagulation Billing Analyst and surgical team are consulted as well Labs and medication were reviewed.. Continue same treatment. Continue with symptomatic treatment. Resume home medication if patient able to take them. Monitor lytes and vitals. DVT and GI prophylaxis. Further recommendations depends on the clinical course of the patient DVT prophylaxis: Hold Eliquis and continue with Lovenox. Continue with mechanical GI Prophylaxis: Protonix Prognosis is guarded
[2020-10-18 04:36] LABS: Anisocytosis Slight; Basophils # (A) 0.1 k/uL (0-0.2); Basophils % (A) 1 %; Eosinophils # (A) 0.1 k/uL (0-0.7); Eosinophils % (A) 1 %; HCT 23.7 % (39.0-53.0); HGB 7.5 gm/dL (13.0-17.5); Hypochromasia Moderate; Lymphocytes # (A) 0.8 k/uL (1.0-4.8); Lymphocytes % (A) 7 %; MCH 28.3 pg (25.0-35.0); MCHC 31.6 g/dL (31.0-37.0); MCV 89.8 fL (80.0-100.0); Mean Platelet Volume 7.9; Monocytes # (A) 0.6 k/uL (0-1.0); Monocytes % (A) 5 %; Neutrophils # (A) 10.1 k/uL (1.3-7.7); Neutrophils % (A) 86 %; Platelet Count 198 k/uL (150-450); Poikilocytosis Slight; RBC 2.64 m/uL (4.30-5.90); RDW 19.2 % (11.5-15.5); WBC 11.8 k/uL (3.8-10.6)
[2020-10-18 05:40] LABS: Glucose,Whole Blood 164 mg/dL (75-99)
[2020-10-18 06:39] LABS: Calcium 8.6 mg/dL (8.4-10.2); Potassium 4.2 mmol/L (3.5-5.1)
[2020-10-18 06:46] LABS: Glucose,Whole Blood 153 mg/dL (75-99)
[2020-10-18] MEDS: LACTATED RINGERS 1,000 ML IV SCH ×2 (06:52→17:06)
[2020-10-18] MEDS: LEVOTHYROXINE 50 MCG TAB PEG/G-TUBE SCH (06:53)
--- NOTE | 2020-10-18 07:40 | P.PN ---
Subjective Progress Note Date: 10/18/20 Acute on chronic hypoxic respiratory failure secondary to left lower lobe pneumonia and sepsis This is a 80-year-old white male familiar to my service, in July 2020, patient underwent elective coronary artery bypass grafting. He had a very complicated postoperative course, patient required multiple abdominal surgeries, multiple intubations, extubations, and the intubations, patient was a failure to wean, and he had multiple abdominal surgeries during his stay. Patient underwent tracheostomy, PEG tube placement, and we were able to transfer the patient to an extended care facility. He was at the extended care facility until about a week ago, his tracheostomy was capped, and he was transferred to [facility] in [facility]. Patient has been noticing increased cough, increased shortness of breath, and significant purulent secretions from the tracheostomy tube when uncapped. O2 saturation was dipping down into the 50s and in the ER he had a saturation of 86% on 15 L high flow nasal cannula. Patient was also noted to have leukocytosis, hemoglobin was low, his troponin was slightly elevated, blood pressure was noted to be marginally low, patient was admitted initially to the cardiac floor, however supposedly he was noted to have blood pressure in the 70s systolic. Patient did receive multiple fluid boluses in the ER over 3 L were given, and we were notified about the patient on the floor having low blood pressure, I recommended transferred to the ICU planning to start the patient on norepinephrine. However over the last 12 hours in the ICU, his blood pressure has been stable patient did not require placement on any pressors. His beta blockers had been on hold because of low blood pressure, and he is maintained on amiodarone. His pro-calcitonin level was noted to be 2.60. And his chest x-ray showed left lower lobe atelectasis, suspect left lower lobe pneumonia. And he had small pleural effusions noted more so than right. Going back to his previous hospital admission, patient did have left lower lobe pneumonia and he did have left pleural effusion requiring thoracentesis once or twice. Cultures previously from the sputum were positive for Pseudomonas fluorescence/putida, sensitive to Zosyn and Levaquin and meropenem. Also sensitive to cefepime. Considering the patient's presentation with hypotension, shortness of breath, cough, abnormal chest x-ray, hypoxia, and considering his recent clinical history, we were asked to see him on consultation Patient was reevaluated today on 10/04/2020, patient remains in the ICU, he is on trach collar a 55%, patient went into atrial fibrillation with RVR yesterday, and he went on amiodarone at 1 mg/m, he also received 1 unit of packed RBCs for hemoglobin of 6.7, patient converted to sinus rhythm. Remains in sinus rhythm, patient is receiving tube feeds/Nepro at 65/65. He is also receiving free water. Chest x-ray is showing minimal improvement in the left lower lobe consolidation, clinically the patient is feeling better, he is empirically on antibiotics for healthcare acquired pneumonia/Zosyn. Previous sputum cultures were positive for Pseudomonas, hence his Zosyn was chosen as the drug of choice. CBC today showed WBC 7.2 hemoglobin 6.7, hence a unit of blood was given. Electrolytes showed low sodium but improving today is 148 from 150 to yesterday. BUN is 108 creatinine 3.4 to about the same as yesterday. Reevaluated today on 10/05/2020, patient remains in the ICU, remains on 55% trach collar. Off norepinephrine, IV fluids at KVO, tolerating enteral feeding via PEG tube, patient continues to have significant amount of tracheal secretions, he is now on Zosyn and vancomycin, as well as Zyvox. His cultures from the sputum are showing MSSA, hence we will discontinue vancomycin, keep him on Zosyn, and infectious disease to address his Zyvox. Patient may not even req uire Zyvox considering the culture is positive for MSSA. Chest x-ray is showing bilateral pleural effusions/small, renal functioning is slightly improved over the last 24 hours. Patient was switched to oral amiodarone, and he seems to be doing quite well, in sinus rhythm. Reevaluated today on 10/06/2020, patient remains in the ICU, remains on trach collar at 28%, sputum came back positive for Klebsiella and MSSA. Patient is on Zosyn and Zyvox. Remains on a small dose of norepinephrine at 0.01 mcg/kg/m, remains on enteral feeding/Nepro at 65 ML per hour, also receiving Questran. Patient continues to have significant output from his ileostomy. Patient is feeling better overall compared to how he felt on presentation. CBC today is relatively normal WBC count is 7.1 hemoglobin is 8.7, electrolytes are normal BUN is 93 creatinine is 3.17, improving over the last couple of days. Blood cultures remain negative. Again his sputum cultures are positive for MSSA and Klebsiella pneumonia. Reevaluated today on 10/07/2020, patient remains in the ICU, remains on trach collar at 28%, receiving antibiotics for his Klebsiella and MSSA pneumonia. Patient is only on Zosyn, and his Zyvox was discontinued since it was initially started by infectious disease for possible MRSA. Patient is requiring intermittently small doses of norepinephrine, clinically however the patient is much better compared to how he felt when he came in. He is in no distress, this morning he is off norepinephrine, but he didn't require norepinephrine last night, hence I will not transfer the patient out of the ICU yet. Chest x-ray continues to show by basilar atelectasis, possible left lower lobe consolidation which is chronic. Secretions from the tracheostomy are less and less. Renal profile is improving, creatinine is down to 2.9. CBC is normal. Electrolytes are normal. On 10/08/2020 the patient is being seen in follow-up in the intensive unit. His, comfortable and currently is on a trach collar with an FiO2 of 28%. The chest x-ray shows small bilateral pleural effusions and there is adequate expansion of both lungs and a orotracheal tube is in a good location. Note that he had MSSA and Klebsiella in his sputum and patient is currently on IV antibiotics and he is receiving IV Zosyn. Patient continues to have copious amount of secretions through his tracheostomy tube and the patient has a #[address] trache[address] tube in place and he is requiring suctioning every 2 hours at least. He still has a lot of rhonchi He is currently off pressors. He is in normal sinus rhythm. He has also PEG tube for enteral feeding and nutritional support. PEG tube is in place and the patient is on Nepro at the rate of 75 mL an hour. He continues to have output through his ileostomy bag. The patient has significant amount of output through his ileostomy was in the order of every 12 hours. No abdominal distention. No signs of any respiratory distress. The creatinine is improving and is currently down to 2.5 and the patient's hemoglobin is at 8.4. No fever. No other issues overnight. Villafana cath is also in place. He is able to communicate. However he is still profoundly weak/in lower extremities. He is able to raise his arms against gravity. On 10/09/2020 patient seen in follow-up in the intensive care unit. Patient is awake and alert, is following commands, moving all 4 extremities, no signs of any respiratory distress, he is breathing comfortably, on 28% trach collar. His pulse ox is 98%. Still having some secretions from his tracheostomy, related he is on Zosyn for antibiotic coverage. Remains on nebulized bronchodilators, hemodynamically patient has been stable. No requiring any vasopressor support for last 48 hours. No acute events overnight. His sputum cultures were positive for MSSA and Klebsiella pneumonia. Today's labs have been reviewed, normal white count at 8.5, hemoglobin is 9.0, sodium is 137, potassium is 3.7, chloride is 110, B1 is 67, creatinine is 2.18. Patient has been nothing by mouth and has been receiving nutrition in the form of Nepro at 65 with a goal of 65. Patient has had significant diarrhea, liquid yellow output from his il eostomy. No complaints of chest pain. He is in sinus mechanism with a controlled rate. Chest x-ray shows basilar infiltrates and atelectasis with small effusions. On 10/10/2020 patient seen in follow-up in the intensive care unit. He is awake and alert, oriented 3, his calm and cooperative, he denies any acute distress, he still has significant amount of secretions that are being suctioned from the tracheostomy tube, he remains on 20% trach collar. He remains on antibiotics, his sputum cultures were positive for MSSA and Klebsiella pneumonia, he is on Zosyn, he has had no fever or chills. Lung sounds reveal minimal rhonchi, less congested and wheezy on today's exam compared a few days ago. Patient is tolerating tube feedings, he remains strict nothing by mouth, he is on Nepro at a rate of 65 ML per hour with a goal of 65 with 125 ML free water flushes every 3 hours. Abdomen is soft, ileostomy is still producing copious amount of liquid yellow diarrhea, which will be sent for C. diff. There has been a total of 2.5 L in stool output in the last 24 hours. Today's labs have been reviewed, white blood cell count is 8.9, hemoglobin is 8.9, CO2 is 18, sodium is 138, potassium is 3.9, chloride is 110, renal profile is improving despite the diarrhea, with BUN of 63, creatinine is 1.94. Patient is working with physical therapy and yesterday he apparently was up in the chair with assistance, tolerated activity well. On 10/11/2020 patient seen in follow-up in intensive care unit, she remains on 28% trach collar, the pulse ox of 97%, vital signs have been stable, his been afebrile, he did have a run of A. fib with RVR this morning and was restarted on amiodarone drip and was given 150 mg bolus of amiodarone. He is currently back in sinus mechanism with a controlled rate, receiving hydration with LR at 75 ML per hour, he continues to have large volume diarrhea out of his ileostomy, he had to 3.3 L in stool output in last 24 hours, C. diff was negative. tube feedings have been switched to vital AF currently running at 75 ML per hour, patient is getting free water flushes of 125 ML every 3 hours. Yesterday we placed him on lactated Ringer's at rate of 75 ML per hour, he is receiving or sodium bicarbonate tablets, his bicarbonate concentration at today's labs has improved and is up to 23. The renal profile slightly improved. Continues on Zosyn for MSSA and Klebsiella pneumonia in sputum cultures, blood cultures have been negative, patient has been afebrile, blood pressure stable, the patient continues on midodrine. Patient is awake and alert, following commands, responding appropriately, appears tired on today's exam. Denies any acute distress, his been working with physical therapy, he stood at the bedside, he is too weak to walk. Abdomen is soft, mid abdominal incision is covered with a dressing. On 10/12/2020 patient seen in follow-up in the intensive care unit. Patient is up in the recliner, breathing comfortably, she is on 20% trach collar, lung sounds are less congested and rhonchorous on today's exam. He is awake and oriented 3, denies any distress, he is currently on lactated Ringer's at a rate of 75 ML per hour, no recurrence of A. fib RVR overnight, his amiodarone is infusing at 0.5 mg/m and he will be transitioned to oral amiodarone today per cardiology, he remained in sinus rhythm. Vital signs are stable. He is on tube feedings of vital AF a rate of 90 with a goal of 90 with 125 ML free water flushes every 3 hours. His diarrhea output has decreased some, patient had 2 L in the liquid ostomy is stool output in the last 24 hours, he is on Lomotil when necessary. No abdominal pain. no nausea or vomiting no nausea or vomiting. The secretions out of the tracheostomy tube have decreased. Patient has been nothing by mouth, she would like to have a swallow evaluation to be evaluated for oral feedings. Today's chest x-ray has been reviewed showing left lower lobe infiltrate and/or pleural effusion, and improving aeration in the right lower lobe. Today's labs have been reviewed, showing white blood cell count of 12.4, hemoglobin of 9.3, electrolytes within normal limits, renal profile shows slight improvement in creatinine, down to 1.6 today. The patient is seen today 10/13/2020 in follow-up in the intensive care unit. He is currently sitting up in a recliner at the bedside. Awake and alert in no acute distress. He is maintaining good O2 saturations in the 90s on 28% trach collar. He is receiving lactated Ringer's at 75 ML's per hour. He is currently on amiodarone drip at 0.5 mg/m. He is being nourished with vital AF at 90 ML's per hour which is goal with 125 ML free water flushes every 3 hours. He still has significant amount of output and his ileostomy. 1.8 L in the past 24 hours. He's been initiated on Questran and octreotide. Chest x-ray is showing improving left lower lobe infiltrate with small effusion. Sputum was positive for Staphylococcus aureus, Klebsiella pneumoniae. He remains on Zosyn. He is status post 1 unit of packed red blood cells this admission. Current hemoglobin 8.8. Platelets 257. INR 1.4. White count 16.2. Sodium 137. Potassium 4.3. Creatinine 1.65. He is currently in sinus rhythm. He's been initiated on Lovenox 80 mg subcu every 12 hours per cardiology. The plan is to switch back to oral amiodarone. The patient is seen today 10/14/2020 and follow-up in the intensive care unit. He is currently sitting up in a chair at the bedside. Awake and alert in no acute distress. Continues to maintain good O2 saturations in the 90s on 28% t eleanor collar. He does remain on amiodarone drip at 0.5 mg/m. Currently in sinus rhythm. Lactated Ringer's at 20 ML's per hour. Being nourished with vital AF 90 ML's per hour which is goal. Chest x-ray today reveals chronic branch changes with a small left pleural effusion and bibasilar atelectas is/infiltrates. No significant change compared to previous. He is status post 1 unit of packed red blood cells this admission. Current hemoglobin 8.6. INR 1.4. White count 15.3. Sodium 136. Potassium 4.1. Creatinine 1.58. Remains on bronchodilators, Zosyn. Continued on octreotide and Questran with approximately 150 ML's of liquid out of the ileostomy per hour. Yesterday's modified barium swallow revealed evidence of aspiration. Recommended alternative means of nutrition. Continue PEG tube feedings. The patient is seen today 10/15/2020 in follow-up in the intensive care unit. He sitting up in a recliner at the bedside. Awake and alert in no acute distress. Continued on 28% FiO2 via trach collar. Maintaining O2 saturations in the 90s. He is continued on cefepime and bronchodilators. Chest x-ray reveals chronic parenchymal changes with small left greater than right pleural effusions and bibasilar atelectasis/infiltrate. He remains on amiodarone at 0.5 mg/m. No other IV fluids. He is still having high output of the ileostomy 150 ML's per hour. Continued on Questran and Sandostatin without much improvement. White count 16.0. Hemoglobin 8.5. Sodium 136. Potassium 4.2. Creatinine 1.43. Glucose 138. Albumin 2.6. He remains on Vital AF 1.2 at 90 ML's per parag r. On 10/16/2020 the patient is being seen in follow-up in the intensive care unit. His weight is gradually going up and is up to 79 kg. He is stool output is also dropped. He was producing up to 2.7 L of stool output and for yesterday he produced one 1.6 L. He does have an ileostomy with possibly a short gut and he is still receiving enteral feeding via his PEG tube for nutritional support and the patient is currently on vital high protein. He is on Questran, Lomotil and octreotide which has helped somewhat with his stool output. The patient remains on amiodarone 0.5 mg per minute regarding his chronic atrial fibrillation. 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 He is hemodynamically stable. Repeat chest x-ray from today shows only small bilateral pleural effusion. His creatinine is at 1.49. Hemoglobin is today at 8.2 with a white cell count of 14.6. His serum albumin is at 2.5 with a total protein of 5.5. His last swallow evaluation was done on 10/13/2020 and he failed the swallow evaluation. He remains on IV cefepime. In terms of anticoagulation, the patient remains on Lovenox 80 mg subcu every 12 hours. Concern about his absorption on oral medication for that reason the patient was given a combination of amiodarone and subcutaneous Lovenox. On 10/17/2020 I'm seeing Francisco for a follow-up. Is able to sit up on a chair, comfortable hemodynamically stable. Remains in atrial fibrillation. The active issue continues to be a high output from the ileostomy. The patient is receiving vital high protein at the rate of 90 mL an hour and output is so high and the patient has put out approximately 2.7 L of output from his ileostomy amount mainly yellowish/dark greenish material consistent with liquid the stool/feeding material.. We are still dealing with a high output, malabsorption situation and the patient remains on a combination of Questran, Lomotil and octreotide which has not helped a whole lot in terms of his stool output. Stool for C. diff has been negative. Antibiotic coverage is cefepime and Flagyl was also added by infectious disease. He remains on amiodarone drip at 0.5 mg per minute regarding his atrial fibrillation. He is on Lovenox for long-term anticoagulation. His tracheostomy tube in place and the patient has a Shiley tracheostomy tube and is able to speak around the tube and he does have rest or secretions which are being suctioned out every 4-6 hours. He is afebrile. Blood work is essentially stable with a hemoglobin of 7.5 and a white cell count of 15. His BUN is a 54 with a creatinine of 1.49 and his sodium is at 135. No other significant events. He is weak. He is regaining some of his strength back. He does have a good grasp using his hands. His legs remain weak. The patient is awake and oriented 3 and he has no specific complaints. Is sitting up on a recliner. On , patient is awake and alert on a recliner. No change in his condition. Is gradually getting stronger. Output from the ileostomy remains to be considerably higher in the order of 1.6 L over the past of hours. He is still on the same regimen of Questran, Lomotil and octreotide. He has no respiratory distress. He is on a trach collar. Stool for C. diff has been negative. He remains on a combination of cefepime and Flagyl. Renal function from today is stable with a BUN of 55 and a creatinine of 1.5. His serum al bumin was at 2.5 which was consistently stable over the past several days. No signs of any fluid overload. No third spacing. Active site is clean. Ostomy site is viable. No abdominal distention. His cardiac rhythm is sinus. He is on amiodarone 400 mg by mouth twice a day is also on metoprolol at a dose of 25 mg by mouth 3 times a day and the patient is also on Lovenox 80 mg subcu twice a day. Objective - Vital Signs Vital signs: Vital Signs Temp 97.3 F L 10/18/20 04:00 Pulse 87 10/18/20 07:00 Resp 26 H 10/18/20 07:00 BP 100/54 10/18/20 07:00 Pulse Ox 96 10/18/20 07:00 Intake & Output 10/17/20 10/18/20 10/18/20 18:59 06:59 18:59 Intake Total 2170 1680 140 Output Total 1600 1850 0 Balance 570 -170 140 Weight 77 kg Intake: IV 600 600 50 Lactated Ringers 1,000 ml 600 600 50 @ 50 mls/hr IV .Q20H [facility] Rx#:[id number] Intake, IV Titration 250 Amount Amiodarone 450 mg In 250 Dextrose 5% in Water 250 ml @ 0.5 MG/MIN 16.667 mls/hr IV .Q15H [facility] Rx#: [id number] Tube Feeding 1080 990 90 Other 240 90 Output: Urine 400 600 0 Stool 1200 1250 Other: Voiding Method Urinal Urinal # Voids 1 - Exam GENERAL EXAM: Alert, very pleasant, 80-year-old male patient on the 28% trach collar, comfortable in no apparent distress. HEAD: Normocephalic/atraumatic. EYES: Normal reaction of pupils, equal size. Conjunctiva pink, sclera white. NOSE: Clear with pink turbinates. THROAT: No erythema or exudates. NECK: Midline tracheostomy in place. No masses, no JVD, no thyroid enlargement, no adenopathy. CHEST: No chest wall deformity. Symmetrical expansion. LUNGS: Equal air entry with crackles in the left base. CVS: Regular rate and rhythm, normal S1 and S2, no gallops, no murmurs, no rubs ABDOMEN: Soft, nontender. No hepatosplenomegaly, normal bowel sounds, no guarding or rigidity. PEG tube exit site clean and dry. Midabdominal incision covered with dressing, is healing by secondary intention, sutures are in place, bed is 100% granulated wound bed. Right upper quadrant ileostomy in place connected to a Villafana drainage bag patient is having liquid yellow stool output EXTREMITIES: No clubbing, no edema, no cyanosis, 2+ pulses and upper and lower extremities. MUSCULOSKELETAL: Muscle strength and tone normal. SPINE: No scoliosis or deformity SKIN: No rashes CENTRAL NERVOUS SYSTEM: Alert and oriented -3. No focal deficits, tone is normal in all 4 extremities. PSYCHIATRIC: Alert and oriented -3. Appropriate affect. Intact judgment and insight. - Labs CBC & Chem 7: 10/18/20 03:57 10/18/20 03:57 Labs: Abnormal Lab Results - Last 24 Hours (Table) 10/17/20 10/17/20 10/17/20 Range/Units 11:35 17:51 23:45 WBC (3.8-10.6) k/uL RBC (4.30-5.90) m/uL Hgb (13.0-17.5) gm/dL Hct (39.0-53.0) % RDW (11.5-15.5) % Neutrophils # (1.3-7.7) k/uL Lymphocytes # (1.0-4.8) k/uL Sodium (137-145) mmol/L BUN (9-20) mg/dL Creatinine (0.66-1.25) mg/dL Glucose (74-99) mg/dL POC Glucose (mg/dL) 174 H 148 H 135 H (75-99) mg/dL 10/18/20 10/18/20 10/18/20 Range/Units 03:57 03:57 05:39 WBC 11.8 H (3.8-10.6) k/uL RBC 2.64 L (4.30-5.90) m/uL Hgb 7.5 L (13.0-17.5) gm/dL Hct 23.7 L (39.0-53.0) % RDW 19.2 H (11.5-15.5) % Neutrophils # 10.1 H (1.3-7.7) k/uL Lymphocytes # 0.8 L (1.0-4.8) k/uL Sodium 135 L (137-145) mmol/L BUN 55 H (9-20) mg/dL Creatinine 1.54 H (0.66-1.25) mg/dL Glucose 134 H (74-99) mg/dL POC Glucose (mg/dL) 164 H (75-99) mg/dL 10/18/20 Range/Units 06:45 WBC (3.8-10.6) k/uL RBC (4.30-5.90) m/uL Hgb (13.0-17.5) gm/dL Hct (39.0-53.0) % RDW (11.5-15.5) % Neutrophils # (1.3-7.7) k/uL Lymphocytes # (1.0-4.8) k/uL Sodium (137-145) mmol/L BUN (9-20) mg/dL Creatinine (0.66-1.25) mg/dL Glucose (74-99) mg/dL POC Glucose (mg/dL) 153 H (75-99) mg/dL Assessment and Plan Plan: 1 Bilateral lower lobe pneumonia with sepsis. The patient's chest x-ray shows interval improvement in the bilateral pleural effusions. The patient continues to have respiratory secretions. His previous cultures have shown a combination of Klebsiella and MSSA. The patient has been on IV cefepime since 09/13/2020. The Flagyl was also added by infectious disease. The chest x-ray from today shows small bilateral pleural effusions and small infiltrates in lung bases. There is elevation of the lungs bilaterally. Tracheostomy tube is in a good lo cation. The patient is currently on 28% trach collar. Secretions aren't improving and there are less abundant and the patient is requiring less suctioning for now. No signs of any respiratory distress at this point in time. 2 Acute on chronic hypoxic respiratory failure secondary to pneumonia and underlying COPD, currently on a 28% trach collar and the patient required tracheostomy following a prolonged intubation mechanical ventilation post cardiac surgery. 3 Bilateral lower lobe pneumonia, secondary to MSSA, and Klebsiella pneumonia (cultured in the sputum) 4 Sepsis secondary to pneumonia, currently off pressors 5 Acute on chronic kidney injury secondary to sepsis, , improving, current creatinine 1.54 6 Moderate-severe COPD. 7 History of triple-vessel coronary artery disease, bypass surgery on 07/18/2020 with multiple postoperative complications 8 History of tracheostomy mostly because of failure to wean. The patient has a #[address] tube in place 9 Benign essential hypertension. 10 Type 2 diabetes. 11 Dyslipidemia. 12 Chronic atrial fibrillation, on amiodarone and on anticoagulation therapy with Lovenox and he is also on oral amiodarone and oral metoprolol. Cardiac rhythm is sinus for some morning. 13 History of hypothyroidism. 14 History of ileostomy on 08/02/2020. 15 Chronic anemia 16 generalized motor weakness and debility seconds above-mentioned comorbidities 17 Large volume diarrhea, out of the ileostomy, C. diff has been ruled out and initiated on octreotide and Questran and Lomotil he is on vital high AF at the rate of 90 mL an hour Plan: Continue cefepime and Flagyl Continues with high output via the ileostomy Continued on octreotide and Questran Will see if pharmacy has tincture of opium Recheck stool for C. diff is negative Pulmonary toileting and frequent suctioning lactated Ringer's at 50 MLS per hour of the free water flushes through his PEG tube amiodarone 400 mg twice a day in addition to Lopressor 25 mg 3 times a day and continue the Lovenox shots for now Tracheostomy care and frequent suctioning Physical therapy We'll continue to monitor him closely here in the ICU We will continue to follow and make further recommendations based on his clinical status
--- NOTE | 2020-10-18 08:00 | P.PN ---
Subjective HPI: This is a pleasant 80-year-old male past medical history significant for coronary artery disease status post CABG July 2020, complicated po stoperative course with multiple abdominal surgeries, intubations and eventually underwent tracheostomy and PEG tube placement. He been [facility] however presented back to the hospital 08/01/2021 secondary to shortness breath. There has been some concern about whether patient is absorbing all of his medications as he does have extensive output from his ostomy. Therefore he was placed on amiodarone as well as subcutaneous Lovenox. Patient is seen and examined this morning at 0750 sitting in chair, no acute distress. He is not able to talk over his trach however denies any chest pain or pressure. He admits to some discomfort of his buttocks and back from sitting for prolonged periods of time. He remains in normal sinus rhythm currently. He is receiving enteral feeding via his PEG tube for nutritional support. 10/18/2020: Patient seen and examined. Patient denies any chest pain or pressure, shortness breath appears similar to prior. He did have some right lower extremity pain overnight however did not take any medications for it. He believes this was related to over doing his exercises. He was transitioned over to oral amiodarone as his ostomy output has been decreasing. Remains in normal sinus rhythm PHYSICAL EXAMINATION CONSTITUTIONAL: No apparent distress, chronically ill-appearing, tracheostomy and PEG tube. HEENT: Head is normocephalic. Pupils are equal, round. Sclerae anicteric. Mucous membranes of the mouth are moist. No JVD. No carotid bruit. CHEST EXAMINATION: Lungs diminished bilaterally No chest wall tenderness is noted on palpation or with deep breathing. HEART EXAMINATION: Regular rate and rhythm. S1, S2 heard. No murmurs, gallops or rub. ABDOMEN: Soft, nontender. Positive bowel sounds. Ileostomy draining liquid yellow/brown stool SKIN: Coccyx pressure ulcer, right heel pressure ulcer EXTREMITIES: 2+ peripheral pulses, no lower extremity edema and no calf tenderness. NEUROLOGIC EXAMINATION: Patient is awake, alert and oriented x3. ASSESSMENT 1. Paroxysmal atrial fibrillation, currently sinus rhythm 2. Bilateral lower lobe pneumonia 3. Acute on chronic respiratory failure 4. Acute kidney injury 5. COPD 6. CAD with triple-vessel disease status post bypass 07/18/2020 7. Anemia 8. Hypertension 9. Large volume of diarrhea, questionable absorption of some of his medications. PLAN IV amiodarone was changed to by mouth amiodarone as his ostomy output has been increasing and appears is receiving adequate absorption. Continue Lovenox for anticoagulation. Continue supportive care. Objective - Vital Signs Vital signs: Vital Signs Temp 97.3 F L 10/18/20 04:00 Pulse 87 10/18/20 07:00 Resp 26 H 10/18/20 07:00 BP 100/54 10/18/20 07:00 Pulse Ox 96 10/18/20 07:00 Intake & Output 10/17/20 10/18/20 10/18/20 18:59 06:59 18:59 Intake Total 2170 1680 140 Output Total 1600 1850 0 Balance 570 -170 140 Weight 77 kg Intake: IV 600 600 50 Lactated Ringers 1,000 ml 600 600 50 @ 50 mls/hr IV .Q20H [facility] Rx#:[id number] Intake, IV Titration 250 Amount Amiodarone 450 mg In 250 Dextrose 5% in Water 250 ml @ 0.5 MG/MIN 16.667 mls/hr IV .Q15H [facility] Rx#: [id number] Tube Feeding 1080 990 90 Other 240 90 Output: Urine 400 600 0 Stool 1200 1250 Other: Voiding Method Urinal Urinal # Voids 1 - Labs CBC & Chem 7: 10/18/20 03:57 10/18/20 03:57 Labs: Abnormal Lab Results - Last 24 Hours (Table) 10/17/20 10/17/20 10/17/20 Range/Units 11:35 17:51 23:45 WBC (3.8-10.6) k/uL RBC (4.30-5.90) m/uL Hgb (13.0-17.5) gm/dL Hct (39.0-53.0) % RDW (11.5-15.5) % Neutrophils # (1.3-7.7) k/uL Lymphocytes # (1.0-4.8) k/uL Sodium (137-145) mmol/L BUN (9-20) mg/dL Creatinine (0.66-1.25) mg/dL Glucose (74-99) mg/dL POC Glucose (mg/dL) 174 H 148 H 135 H (75-99) mg/dL 10/18/20 10/18/20 10/18/20 Range/Units 03:57 03:57 05:39 WBC 11.8 H (3.8-10.6) k/uL RBC 2.64 L (4.30-5.90) m/uL Hgb 7.5 L (13.0-17.5) gm/dL Hct 23.7 L (39.0-53.0) % RDW 19.2 H (11.5-15.5) % Neutrophils # 10.1 H (1.3-7.7) k/uL Lymphocytes # 0.8 L (1.0-4.8) k/uL Sodium 135 L (137-145) mmol/L BUN 55 H (9-20) mg/dL Creatinine 1.54 H (0.66-1.25) mg/dL Glucose 134 H (74-99) mg/dL POC Glucose (mg/dL) 164 H (75-99) mg/dL 10/18/20 Range/Units 06:45 WBC (3.8-10.6) k/uL RBC (4.30-5.90) m/uL Hgb (13.0-17.5) gm/dL Hct (39.0-53.0) % RDW (11.5-15.5) % Neutrophils # (1.3-7.7) k/uL Lymphocytes # (1.0-4.8) k/uL Sodium (137-145) mmol/L BUN (9-20) mg/dL Creatinine (0.66-1.25) mg/dL Glucose (74-99) mg/dL POC Glucose (mg/dL) 153 H (75-99) mg/dL
[2020-10-18] MEDS: BUDESONIDE 1 MG/2 ML NEBU INHALATION SCH ×2 (08:32→20:17)
[2020-10-18] MEDS: IPRATROPIUM-ALBUTEROL 3 ML NEB INHALATION SCH ×4 (08:32→20:17)
[2020-10-18] MEDS: METOPROLOL TARTRATE 25 MG TAB PO SCH ×3 (09:00→21:55)
[2020-10-18] MEDS: ACETAMINOPHEN TAB 325 MG TAB PO PRN ×2 (09:00→21:53)
[2020-10-18] MEDS: TAMSULOSIN 0.4 MG CAP.ER.24H PO SCH (09:00)
[2020-10-18] MEDS: AMIODARONE 200 MG TAB PO SCH ×2 (09:00→21:53)
[2020-10-18] MEDS: ASPIRIN 81 MG PO SCH (09:00)
[2020-10-18] MEDS: ENOXAPARIN 80 MG/0.8 ML SYRINGE SQ SCH ×2 (09:01→21:52)
[2020-10-18] MEDS: OCTREOTIDE 100 MCG/ML INJ SQ SCH ×4 (09:02→22:33)
[2020-10-18] MEDS: CHOLESTYRAMINE (WITH SUGAR) 4 GM PACKET PO SCH ×2 (09:02→17:25)
[2020-10-18] MEDS: metroNIDAZOLE 500 MG TAB PO SCH ×3 (09:43→21:55)
--- NOTE | 2020-10-18 10:37 | P.PN ---
Subjective Patient is seen in follow for acute kidney injury. Renal function stable. Has been voiding. Denies chest pain or shortness of breath. He is receiving tube feeding. Continues to have high output from the ileostomy. Working with speech therapy. Hemodynamically stable. Vital signs are stable. General: The patient appeared well nourished and normally developed. HEENT: Tracheostomy noted. LUNGS: Breath sounds decreased. HEART: Rate and Rhythm are regular. ABDOMEN: Soft, no distention noted. Ileostomy noted. EXTREMITITES: No edema. Objective - Vital Signs Vital signs: Vital Signs Temp 96.8 F L 10/18/20 08:00 Pulse 99 10/18/20 10:00 Resp 20 10/18/20 10:00 BP 89/58 10/18/20 10:00 Pulse Ox 100 10/18/20 10:00 Intake & Output 10/17/20 10/18/20 10/18/20 18:59 06:59 18:59 Intake Total 2170 1680 590 Output Total 1600 1850 0 Balance 570 -170 590 Weight 77 kg Intake: IV 600 600 200 Lactated Ringers 1,000 ml 600 600 200 @ 50 mls/hr IV .Q20H [facility] Rx#:[id number] Intake, IV Titration 250 Amount Amiodarone 450 mg In 250 Dextrose 5% in Water 250 ml @ 0.5 MG/MIN 16.667 mls/hr IV .Q15H [facility] Rx#: [id number] Tube Feeding 1080 990 360 Other 240 90 30 Output: Urine 400 600 0 Stool 1200 1250 Other: Voiding Method Urinal Urinal Urinal # Voids 1 0 - Labs CBC & Chem 7: 10/18/20 03:57 10/18/20 03:57 Labs: Abnormal Lab Results - Last 24 Hours (Table) 10/17/20 10/17/20 10/17/20 Range/Units 11:35 17:51 23:45 WBC (3.8-10.6) k/uL RBC (4.30-5.90) m/uL Hgb (13.0-17.5) gm/dL Hct (39.0-53.0) % RDW (11.5-15.5) % Neutrophils # (1.3-7.7) k/uL Lymphocytes # (1.0-4.8) k/uL Sodium (137-145) mmol/L BUN (9-20) mg/dL Creatinine (0.66-1.25) mg/dL Glucose (74-99) mg/dL POC Glucose (mg/dL) 174 H 148 H 135 H (75-99) mg/dL 10/18/20 10/18/20 10/18/20 Range/Units 03:57 03:57 05:39 WBC 11.8 H (3.8-10.6) k/uL RBC 2.64 L (4.30-5.90) m/uL Hgb 7.5 L (13.0-17.5) gm/dL Hct 23.7 L (39.0-53.0) % RDW 19.2 H (11.5-15.5) % Neutrophils # 10.1 H (1.3-7.7) k/uL Lymphocytes # 0.8 L (1.0-4.8) k/uL Sodium 135 L (137-145) mmol/L BUN 55 H (9-20) mg/dL Creatinine 1.54 H (0.66-1.25) mg/dL Glucose 134 H (74-99) mg/dL POC Glucose (mg/dL) 164 H (75-99) mg/dL 10/18/20 Range/Units 06:45 WBC (3.8-10.6) k/uL RBC (4.30-5.90) m/uL Hgb (13.0-17.5) gm/dL Hct (39.0-53.0) % RDW (11.5-15.5) % Neutrophils # (1.3-7.7) k/uL Lymphocytes # (1.0-4.8) k/uL Sodium (137-145) mmol/L BUN (9-20) mg/dL Creatinine (0.66-1.25) mg/dL Glucose (74-99) mg/dL POC Glucose (mg/dL) 153 H (75-99) mg/dL Assessment and Plan Plan: Assessment: 1. Acute kidney injury secondary to ATN secondary to hypotension and hemodynamic instability. Renal function improved from admission. Creatinine stable at 1.54 today. No hydronephrosis noted on kidney ultrasound. 2. Chronic kidney disease stage III with baseline creatinine 1.2-1.5 secondary to nephrosclerosis. 3. A. fib with RVR. Maintained on amiodarone and metoprolol. 4. Hypernatremia secondary to lack of oral water intake. Resolved. 5. Failed swallow eval maintained on tube feeding. 6. Diabetes mellitus. 7. Anemia of chronic kidney disease. Maintained on Aranesp. Status post IV iron and blood transfusion this admission. 8. 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 Currently has ileostomy. 9. Sepsis secondary to pneumonia s/p antibiotics. Plan: Maintain tube feeding. Continue to monitor renal function and urine output. Avoid nephrotoxins. No changes from nephrology standpoint.
[2020-10-18 11:29] LABS: Glucose,Whole Blood 170 mg/dL (75-99)
[2020-10-18 13:01] LABS: Glucose,Whole Blood 143 mg/dL (75-99)
[2020-10-18 15:12] LABS: Appearance,Urine Clear (Clear); Bacteria,Urine Rare /hpf; Bilirubin,Urine Negative (Negative); Blood,Urine Small (Negative); Color,Urine Yellow; Glucose,Urine (UA) Negative (Negative); Ketones,Urine Negative (Negative); Leukocyte Esterase,Urine Large (Negative); Nitrite,Urine Negative (Negative); PH, Urine 6.5 (5.0-8.0); Protein,Urine 1+ (Negative); RBC,Urine 1 /hpf (0-5); Specific Gravity,Urine 1.017 (1.001-1.035); Squamous Epithelial Cell,Urine <1 /hpf (0-4); Urobilinogen,Urine <2.0 mg/dL (<2.0); WBC,Urine 71 /hpf (0-5)
--- NOTE | 2020-10-18 15:20 | P.PN ---
Subjective Progress Note Date: 10/18/20 CHIEF COMPLAINT: Respiratory distress HISTORY OF PRESENT ILLNESS: Patient seen and examined with Dr. bangura. Patient is being followed in regards to his abdominal wound at incision site. Patient remains in the ICU. He is sitting at bedside chair. He denies any abdominal pain. Patient is having high ileostomy output. The color has changed from yellow to brown output through his ileostomy. This possibly could be related to the Sandostatin. He remains on Questran and Lomotil and Sandostatin to help slow ileostomy output. He does likely have short gut syndrome. Antibiotics switched from Zosyn to cefepime by ID. Zosyn may have contributed to high ostomy output. Tube feedings changed to vital 1.2. He failed his modified barium swallow it did show evidence of aspiration. Patient is afe brile. Trach collaring 100%. WBC 11.8 hemoglobin 7.5 creatinine 1.54 PHYSICAL EXAM: VITAL SIGNS: Reviewed. GENERAL: Well-developed in no acute distress. HEENT: No sclera icterus. Extraocular movements grossly intact. Moist buccal mucosa. Head is atraumatic, normocephalic. ABDOMEN: Soft. Nondistended. Nontender. Dressing clean dry and intact. Patient has a brownish liquidy stool coming through the ileostomy. NEUROLOGIC: Alert and oriented. Cranial nerves II through XII grossly intact. ASSESSMENT: 1. Abdominal wound at surgical incision site. 2. High ileostomy output 3. History of ischemic small bowel with evidence of pneumatosis status post small bowel resection on 07/24/2020. 4. History of intraperitoneal hemorrhage and small bowel ischemia status post exploratory laparotomy, washout of peritoneal cavity and ileostomy with small bowel resection on 08/02/2020 5. 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 Acute hypoxic respiratory failure secondary to pneumonia 7. Sepsis secondary to pneumonia 8. Acute kidney injury 9. chronic Anemia: With known chronic kidney disease and iron deficiency. He did require blood transfusion and IV Iron during this admission PLAN: -Recommend ileostomy reversal when patient is medically stable -Continue wound care with Aquacel dressing -Continue Sandostatin, Lomotil and Questran to help with high-volume ileostomy output -Continue supportive care -Continue ICU management -Continue antibiotics per ID Physician Manager Marketing [employer] note has been reviewed by physician. Signing provider agrees with the documented findings, assessment, and plan of care. Objective - Vital Signs Vital signs: Vital Signs Temp 97.1 F L 10/18/20 12:00 Pulse 87 10/18/20 14:00 Resp 21 10/18/20 14:00 BP 87/55 10/18/20 14:00 Pulse Ox 95 10/18/20 14:00 Intake & Output 10/17/20 10/18/20 10/18/20 18:59 06:59 18:59 Intake Total 2170 1680 1180 Output Total 1600 1850 350 Balance 570 -170 830 Weight 77 kg 77 kg Intake: IV 600 600 400 Lactated Ringers 1,000 ml 600 600 400 @ 50 mls/hr IV .Q20H [facility] Rx#:[id number] Intake, IV Titration 250 Amount Amiodarone 450 mg In 250 Dextrose 5% in Water 250 ml @ 0.5 MG/MIN 16.667 mls/hr IV .Q15H [facility] Rx#: [id number] Tube Feeding 1080 990 720 Other 240 90 60 Output: Urine 400 600 350 Stool 1200 1250 Other: Voiding Method Urinal Urinal Urinal # Voids 1 1 - Labs CBC & Chem 7: 10/18/20 03:57 10/18/20 03:57 Labs: Abnormal Lab Results - Last 24 Hours (Table) 10/17/20 10/17/20 10/18/20 Range/Units 17:51 23:45 03:57 WBC 11.8 H (3.8-10.6) k/uL RBC 2.64 L (4.30-5.90) m/uL Hgb 7.5 L (13.0-17.5) gm/dL Hct 23.7 L (39.0-53.0) % RDW 19.2 H (11.5-15.5) % Neutrophils # 10.1 H (1.3-7.7) k/uL Lymphocytes # 0.8 L (1.0-4.8) k/uL Sodium (137-145) mmol/L BUN (9-20) mg/dL Creatinine (0.66-1.25) mg/dL Glucose (74-99) mg/dL POC Glucose (mg/dL) 148 H 135 H (75-99) mg/dL Urine Protein (Negative) Urine Blood (Negative) Ur Leukocyte Esterase (Negative) Urine WBC (0-5) /hpf Urine Bacteria (None) /hpf 10/18/20 10/18/20 10/18/20 Range/Units 03:57 05:39 06:45 WBC (3.8-10.6) k/uL RBC (4.30-5.90) m/uL Hgb (13.0-17.5) gm/dL Hct (39.0-53.0) % RDW (11.5-15.5) % Neutrophils # (1.3-7.7) k/uL Lymphocytes # (1.0-4.8) k/uL Sodium 135 L (137-145) mmol/L BUN 55 H (9-20) mg/dL Creatinine 1.54 H (0.66-1.25) mg/dL Glucose 134 H (74-99) mg/dL POC Glucose (mg/dL) 164 H 153 H (75-99) mg/dL Urine Protein (Negative) Urine Blood (Negative) Ur Leukocyte Esterase (Negative) Urine WBC (0-5) /hpf Urine Bacteria (None) /hpf 10/18/20 10/18/20 10/18/20 Range/Units 11:26 12:59 14:47 WBC (3.8-10.6) k/uL RBC (4.30-5.90) m/uL Hgb (13.0-17.5) gm/dL Hct (39.0-53.0) % RDW (11.5-15.5) % Neutrophils # (1.3-7.7) k/uL Lymphocytes # (1.0-4.8) k/uL Sodium (137-145) mmol/L BUN (9-20) mg/dL Creatinine (0.66-1.25) mg/dL Glucose (74-99) mg/dL POC Glucose (mg/dL) 170 H 143 H (75-99) mg/dL Urine Protein 1+ H (Negative) Urine Blood Small H (Negative) Ur Leukocyte Esterase Large H (Negative) Urine WBC 71 H (0-5) /hpf Urine Bacteria Rare H (None) /hpf
[2020-10-18 17:36] LABS: Glucose,Whole Blood 148 mg/dL (75-99)
--- NOTE | 2020-10-18 19:02 | PN ---
PROGRESS NOTE DATE OF SERVICE: 10/18/2020 REASON FOR FOLLOWUP: Pneumonia. INTERVAL HISTORY: The patient is currently afebrile. He is breathing comfortably. Denies having any chest pain, shortness of breath or cough. No abdominal pain. Still has significant output in his ileostomy. PHYSICAL EXAMINATION: Blood pressure 106/67, pulse of 80, temperature 98. He is 98% on trach collar. General description is an elderly male up in the bed in no distress. RESPIRATORY SYSTEM: Unlabored breathing with decreased breath sounds at the base. No wheeze. HEART: S1, S2. Regular rate and rhythm. ABDOMEN: Soft. No tenderness. LABS: Hemoglobin 7.4, white count 11.8. Procalcitonin is 0.68. BUN 55, creatinine 1.54. DIAGNOSTIC IMPRESSION AND PLAN: Patient with pneumonia with sputum positive for Klebsiella and MSSA and concern for aspiration pneumonia. The patient has been on cefepime and Flagyl, which seem to have dropped off will be re-ordered. Continue with supportive care. MMODL / IJN: [id number] /
[2020-10-18] MEDS: ATORVASTATIN 40 MG TAB PEG/G-TUBE SCH (21:53)
[2020-10-18] MEDS: CEFEPIME 2 GM in SODIUM CHLORIDE 0.9% 100 ML IVPB SCH (21:54)
[2020-10-18] MEDS: MELATONIN 3 MG TABLET PO PRN (21:55)
[2020-10-18] MEDS: FAMOTIDINE 20 MG TAB PO SCH (21:55)
[2020-10-18] MEDS: QUEtiapine 25 MG TAB PO SCH (21:55)
--- NOTE | 2020-10-18 23:56 | P.PN ---
Subjective This is a pleasant 80 years old male with past medical history of coronary artery disease, COPD, diabetes mellitus, hyperlipidemia, hypertension, hy pothyroidism, coronary artery disease status post cardiac cath and stent placement. He recently underwent double coronary artery bypass grafting for his triple-vessel coronary artery disease. He was in the hospital from 07/18/20- 08/25/2020 pt has tracheostomhy and PEG tube , Information were obtained with the help of at bedside, he presents with confusion, and a lot of secretion Why he states that after been discharged from [facility] and he went to [facility] aren't states therefore one month and 5 days and then he was discharged a few days ago to snf at [facility] on Friday, however over the weekend he has more congestion, he has weak cough and needed frequent suctioning, patient was able to talk weekly his little confused but he can't communicate through gesture, he denies pain but he is tachypneic He has tracheostomy, PEG tube and try to colostomy. Admitted with-hypotension secondary to severe sepsis secondary to pneumonia, aspiration pneumonia, acute hypoxic respiratory failure, acute kidney injury secondary to ATN, elevated sodium, increased lactic acid, elevated troponin felt to be from tachycardia. Recent history of intraperitoneal hemorrhage status post laboratory with washout and ileostomy on 08/02/2020. Tracheostomy. C. diff ruled out. 10/13/2020 History the patient developed A. fib and he was started on amiodarone drip which helped to convert him to sinus rhythm today with a plan for him to convert him to oral amiodarone, however there is concerned about his disruption, he has 2 palpating through PEG tube but he has high output ileostomy with stool is light yellow in color for example he has about 1.2 L discharge this morning. Also he is on IV fluids in the form of lingular left at 75 milliliters per hour Patient is also covered with Zosyn and water flushes lowered to 30 mL every 4 hours Also he has low urine output with bladder scan and possible straight cath if needed Mistiran is admitted today 10/14/2020 This is a pleasant 80 years old male with past tracheostomy was sent originally from snf for respiratory distress Patient is monitored closely in the ICU. He is with short bowel syndrome and high output enterostomy about 100-150 mL/h with yellow stool. He is getting tube feeding through PEG tube and running at 90 mL/h with 30 mL water flushes and he is tolerating that well Yesterday patient underwent modified barium swallow test and he failed the test. Most likely patient with aspiration pneumonia on the top ,he is on antibiotics Creatinine today is 1.5 which is at baseline as he is CKD stage III and baseline creatinine 1.2-1.3 He is still on amiodarone drip for his A. fib with RVR also he is still on Lovenox 80 mg twice daily Atibiotics were adjusted from Zosyn to cefepime today under supervision of ID team 10/15/2020 Patient is seen and examined in the ICU. He had uneventful night yesterday. He still have high output discharge from his ileostomy although it's today slightly thicker. A still could not take orally and PEG Tube. Also He Is Getting Amiodarone Drip He is a slightly tachypneic. Afebrile. Saturating 98% on 28% FiO2. Not tachycardic. Labs showed leukocytosis with WBC 16 K. Hemoglobin is 8.5. Creatinine slightly down today to 1.4. Glucose is controlled Sputum culture is growing staph feeling coccus areas and Klebsiella pneumoniae both are sensitive to cefepime Patient remains on octreotide and Questran 10/16/2020 Patient is awake lying comfortable in bed Still have high output ileostomy to. He tolerates peg tube feeding well. He is breathing quietly This is a switch to sinus and is currently on oral amiodarone with cardiology was on the case patient remains on cefepime and Flagyl is been admitted by ID team as well for faster healing Sutures team are considering ileostomy reversal 10/17/20 Patients remain stable with high output from his ileostomy 2, with no significant abdominal pain but is getting PEG tube placement Surgery team of the case and the plan to reverse ileostomy as her 10.20 is more stable Cardiology are following the patient for his A. fib and adjusted medication including amiodarone which is switched to oral. Continue with Lovenox subcutaneously Vitals are stable. And he is saturating 97% on trach collar. Past leukocytosis of 13 K, hemoglobin 7.5. Creatinine is stable at 1.4 sugars controlled. Continue with cefepime 10/18/2020 This getting tube feeding for high output is still to be. With minimal abdominal pain. Surgery team on the case with excellent to continue symptomatic treatment until stabilization for surgery. His heart rate is controlled, He is on Questran Lomotil and octreotide he Is with aspiration pneumonia, improving. procalcitonin is trending down from 2.6 down to 0.68. He is on Flagyl and cefepime. Urine analysis is still abnormal For his A. fib heart rate is a stable. He is on aspirin and amiodarone and Lovenox 80 mg Review of systems CONSTITUTIONAL: No fever, no malaise, no fatigue. HEENT: No recent visual problems or hearing problems. Denied any sore throat. CARDIOVASCULAR: No orthopnea, PND, no palpitations, no syncope. PULMONARY: No shortness of breath, no cough, no hemoptysis. GASTROINTESTINAL: No diarrhea, no nausea, no vomiting, no abdominal pain. Normoactive bowel sounds. Active Medications Generic Name Dose Route Start Last Admin Trade Name Freq PRN Reason Stop Dose Admin Acetaminophen 650 mg 10/13/20 22:55 10/16/20 21:24 Acetaminophen Tab 325 Mg Tab PO 650 mg Q6HR PRN Administration Fever and/ or Pain Albuterol/Ipratropium 3 ml 10/04/20 08:00 10/16/20 23:05 Ipratropium-Albuterol 3 Ml Neb INHALATION 3 ml RT-QID WADE Administration Albuterol/Ipratropium 3 ml 10/03/20 21:23 10/03/20 21:27 Ipratropium-Albuterol 3 Ml Neb INHALATION 3 ml RT-Q2H PRN Administration Shortness Of Breath Or Wheezing Aspirin 81 mg 10/07/20 18:30 10/16/20 07:53 Aspirin 81 Mg PO 81 mg DAILY WADE Administration Atorvastatin Calcium 40 mg 10/03/20 20:00 10/16/20 21:24 Atorvastatin 40 Mg Tab PEG/G-TUBE 40 mg HS@2000 WADE Administration Budesonide 1 mg 10/04/20 08:00 10/16/20 23:06 Budesonide 1 Mg/2 Ml Nebu INHALATION 1 mg RT-BID WADE Administration Cholestyramine Resin 4 gm 10/06/20 10:00 10/16/20 18:40 Cholestyramine (With Sugar) 4 Gm Packet PO 4 gm BID@1000,1800 WADE Administration Darbepoetin Alex 40 mcg 10/03/20 10:00 10/10/20 12:18 Darbepoetin Alex 40 Mcg/0.4 Ml Syringe SQ 40 mcg Q7D WADE Administration Diphenoxylate HCl/Atropine 1 each 10/12/20 12:00 10/16/20 23:25 Diphenox-Atrop 2.5-0.025 Mg 1 Each Tab PO 1 each Q6HR WADE Administration Enoxaparin Sodium 80 mg 10/13/20 09:00 10/16/20 21:23 Enoxaparin 80 Mg/0.8 Ml Syringe SQ 80 mg Q12HR WADE Administration Famotidine 20 mg 10/07/20 21:00 10/16/20 21:24 Famotidine 20 Mg Tab PO 20 mg HS WADE Administration Amiodarone HCl 450 mg/ 250 mls @ 16.667 mls/hr 10/12/20 23:00 10/16/20 12:35 Dextrose/Water IV 0.5 mg/min .Q15H WADE 16.667 mls/hr Administration Protocol 0.5 MG/MIN Cefepime HCl 2 gm/ Sodium 100 mls @ 25 mls/hr 10/14/20 21:00 10/16/20 21:23 Chloride IVPB 25 mls/hr Q12H WADE Administration Lactated Ringer's 1,000 mls @ 50 mls/hr 10/15/20 16:00 10/16/20 17:13 Lactated Ringers IV 50 mls/hr .Q20H WADE Administration Insulin Aspart 0 unit 10/04/20 00:00 10/16/20 23:25 Insulin Aspart (Novolog) 100 Unit/Ml Vial SQ 2 unit Q6H WADE Administration Protocol Levothyroxine Sodium 50 mcg 10/04/20 06:00 10/16/20 06:12 Levothyroxine 50 Mcg Tab PEG/G-TUBE 50 mcg DAILY@0600 WADE Administration Melatonin 3 mg 10/08/20 20:46 10/16/20 21:23 Melatonin 3 Mg Tablet PO 3 mg HS PRN Administration Insomnia Metoprolol Tartrate 25 mg 10/03/20 10:00 10/16/20 21:24 Metoprolol Tartrate 25 Mg Tab PO 25 mg TID WADE Administration Metronidazole 500 mg 10/16/20 23:00 10/16/20 23:26 Metronidazole 500 Mg Tab PO 500 mg TID WADE Administration Midodrine 10 mg 10/05/20 08:15 10/16/20 23:25 Midodrine 5 Mg Tab PO 10 mg Q8HR WADE Administration Miscellaneous Information 1 each 10/09/20 18:33 Potassium Replacement Protocol 1 Each Misc MISCELLANE DAILY PRN Per Protocol Protocol Naloxone HCl 0.2 mg 10/02/20 11:26 Naloxone 0.4 Mg/Ml 1 Ml Vial IV Q2M PRN Opioid Reversal Octreotide Acetate 100 mcg 10/12/20 16:00 10/16/20 23:25 Octreotide 100 Mcg/Ml Inj SQ 100 mcg Q8HR WADE Administration Ondansetron HCl 4 mg 10/02/20 11:26 10/11/20 03:52 Ondansetron 4 Mg/2 Ml Vial IVP 4 mg Q8HR PRN Administration Nausea And Vomiting Quetiapine Fumarate 25 mg 10/03/20 21:00 10/16/20 21:23 Quetiapine 25 Mg Tab PO 25 mg HS WADE Administration Tamsulosin HCl 0.4 mg 10/03/20 09:30 10/16/20 07:53 Tamsulosin 0.4 Mg Cap.Er.24h PO 0.4 mg PC-[id number] WADE Administration Objective - Vital Signs Vital signs: Vital Signs Temp 96.8 F L 10/18/20 08:00 Pulse 78 10/18/20 11:00 Resp 21 10/18/20 11:00 BP 95/57 10/18/20 11:00 Pulse Ox 100 10/18/20 11:00 Intake & Output 10/17/20 10/18/20 10/18/20 18:59 06:59 18:59 Intake Total 2170 1680 730 Output Total 1600 1850 0 Balance 570 -170 730 Weight 77 kg Intake: IV 600 600 250 Lactated Ringers 1,000 ml 600 600 250 @ 50 mls/hr IV .Q20H WADE Rx#:[id number] Intake, IV Titration 250 Amount Amiodarone 450 mg In 250 Dextrose 5% in Water 250 ml @ 0.5 MG/MIN 16.667 mls/hr IV .Q15H WADE Rx#: [id number] Tube Feeding 1080 990 450 Other 240 90 30 Output: Urine 400 600 0 Stool 1200 1250 Other: Voiding Method Urinal Urinal Urinal # Voids 1 0 - Exam -GENERAL: The patient is awake, he is more alert. He is well nourished. HEENT: Pupils are round and equally reacting to light. EOMI. No scleral icterus. No conjunctival pallor. Normocephalic, atraumatic. No pharyngeal erythema. No thyromegaly. CARDIOVASCULAR: S1 and S2 present. No murmurs, rubs, or gallops. -PULMONARY: Chest is clear to auscultation, no wheezing or crackles. Tachypneic. Status post tracheostomy with some secretions -ABDOMEN: Soft, nontender, nondistended, normoactive bowel sounds. No palpable organomegaly. PEG tube is in place, right colostomy. Abdominal midline wound, no purulent discharge but yellow , status post debridement by surgical team with dressing is in place MUSCULOSKELETAL: No joint swelling or deformity. EXTREMITIES: No cyanosis, clubbing, or pedal edema. NEUROLOGICAL: Gross neurological examination did not reveal any focal deficits. SKIN: No rashes. No petechiae - Labs CBC & Chem 7: 10/18/20 03:57 10/18/20 03:57 Labs: Abnormal Lab Results - Last 24 Hours (Table) 10/17/20 10/17/20 10/17/20 Range/Units 11:35 17:51 23:45 WBC (3.8-10.6) k/uL RBC (4.30-5.90) m/uL Hgb (13.0-17.5) gm/dL Hct (39.0-53.0) % RDW (11.5-15.5) % Neutrophils # (1.3-7.7) k/uL Lymphocytes # (1.0-4.8) k/uL Sodium (137-145) mmol/L BUN (9-20) mg/dL Creatinine (0.66-1.25) mg/dL Glucose (74-99) mg/dL POC Glucose (mg/dL) 174 H 148 H 135 H (75-99) mg/dL 10/18/20 10/18/20 10/18/20 Range/Units 03:57 03:57 05:39 WBC 11.8 H (3.8-10.6) k/uL RBC 2.64 L (4.30-5.90) m/uL Hgb 7.5 L (13.0-17.5) gm/dL Hct 23.7 L (39.0-53.0) % RDW 19.2 H (11.5-15.5) % Neutrophils # 10.1 H (1.3-7.7) k/uL Lymphocytes # 0.8 L (1.0-4.8) k/uL Sodium 135 L (137-145) mmol/L BUN 55 H (9-20) mg/dL Creatinine 1.54 H (0.66-1.25) mg/dL Glucose 134 H (74-99) mg/dL POC Glucose (mg/dL) 164 H (75-99) mg/dL 10/18/20 Range/Units 06:45 WBC (3.8-10.6) k/uL RBC (4.30-5.90) m/uL Hgb (13.0-17.5) gm/dL Hct (39.0-53.0) % RDW (11.5-15.5) % Neutrophils # (1.3-7.7) k/uL Lymphocytes # (1.0-4.8) k/uL Sodium (137-145) mmol/L BUN (9-20) mg/dL Creatinine (0.66-1.25) mg/dL Glucose (74-99) mg/dL POC Glucose (mg/dL) 153 H (75-99) mg/dL Assessment and Plan Assessment: sepsis related to his pneumonia. Possible aspiration pneumonia Acute Hypoxic respiratory failure, status post tracheostomy on trach collar High output ileostomy Acute kidney injury on the top of chronic kidney disease, creatinine improved to baseline Hypernatremia, resolved Elevated lactic acid, improved Elevated troponin, mostly secondary to tachycardia per fountain clerk History of triple vessel coronary artery disease status post bypass surgery on 07/18/2020 Atrial fibrillation on Eliquis (on hold), currently covered with Lovenox Stage II sacral pressure ulcer Recent history of intraperitoneal hemorrhage status post exploratory laparotomy with washout and ileostomy on 08/02/2020 Hypothyroidism Moderate to severe COPD, with no acute exacerbation Remote history of nicotine dependence Chronic kidney disease stage II Hypertension Hyperlipidemia Type 2 diabetes mellitus No code Plan: This is a pleasant 80 years old male who presents with dyspnea and hypotension possible secondary to aspiration pneumonia. on cefepime. Also he has high output ileostomy, continue with tube feeding and water flushes continue with IV fluid. At [facility] and follow-up stool output. Cardiology on the case for his A. fib with RVR, currently with amiodarone Pulmonary and cardiology consult, continue with IV fluids, continue with oxygen as needed. Continue with amiodarone drip and metoprolol. Continue with anticoagulation Station Supervisor and surgical team are consulted as well Labs and medication were reviewed.. Continue same treatment. Continue with symptomatic treatment. Resume home medication if patient able to take them. Monitor lytes and vitals. DVT and GI prophylaxis. Further recommendations depends on the clinical course of the patient DVT prophylaxis: Hold Eliquis and continue with Lovenox. Continue with mechanical GI Prophylaxis: Protonix Prognosis is guarded
[2020-10-19 01:16] LABS: Glucose,Whole Blood 175 mg/dL (75-99)
[2020-10-19] MEDS: INSULIN ASPART (NovoLOG) 100 UNIT/ML VIAL SQ SCH ×4 (01:20→17:33)
[2020-10-19] MEDS: DIPHENOX-ATROP 2.5-0.025 MG 1 EACH TAB PO SCH ×4 (01:20→17:39)
[2020-10-19 04:50] LABS: Anisocytosis Slight; Basophils # (A) 0.1 k/uL (0-0.2); Basophils % (A) 1 %; Eosinophils # (A) 0.2 k/uL (0-0.7); Eosinophils % (A) 1 %; HCT 20.8 % (39.0-53.0); Hypochromasia Moderate; Lymphocytes # (A) 0.9 k/uL (1.0-4.8); Lymphocytes % (A) 8 %; MCH 29.2 pg (25.0-35.0); MCHC 32.1 g/dL (31.0-37.0); Macrocytosis Slight; Monocytes # (A) 0.7 k/uL (0-1.0); Monocytes % (A) 6 %; Neutrophils # (A) 10.2 k/uL (1.3-7.7); Neutrophils % (A) 84 %; Platelet Count 223 k/uL (150-450); Poikilocytosis Slight; RBC 2.29 m/uL (4.30-5.90); RDW 19.7 % (11.5-15.5); WBC 12.1 k/uL (3.8-10.6)
[2020-10-19 04:57] LABS: HGB 6.7 gm/dL (13.0-17.5)
[2020-10-19 05:36] LABS: Calcium 8.5 mg/dL (8.4-10.2); Potassium 4.1 mmol/L (3.5-5.1)
[2020-10-19] MEDS: LEVOTHYROXINE 50 MCG TAB PEG/G-TUBE SCH (06:16)
--- NOTE | 2020-10-19 06:48 | XR ---
EXAMINATION TYPE: XR chest 1V portable DATE OF EXAM: 10/19/2020 CLINICAL HISTORY: Difficulty breathing and pneumonia progress study. TECHNIQUE: Single AP portable upright view of the chest is obtained. COMPARISON: Chest x-ray from 2 days earlier and older studies FINDINGS: Stable tracheostomy tube and right-sided PICC line terminating short of the SVC in brachio cephalic vein. Overlying sternal wires and mediastinal clips and left atrial appendage clip are all redemonstrated. Persistent bibasilar opacities on background chronic parenchymal changes. Cardiac silhouette size is stable and upper limits of normal. Osseous structures are intact. IMPRESSION: Chronic parenchymal changes with small left greater than right pleural effusions and biba silar atelectasis and/or infiltrate are all redemonstrated. No significant [facility]
--- NOTE | 2020-10-19 07:01 | P.PN ---
Subjective Progress Note Date: 10/19/20 Acute on chronic hypoxic respiratory failure secondary to left lower lobe pneumonia and sepsis This is a 80-year-old white male familiar to my service, in July 2020, patient underwent elective coronary artery bypass grafting. He had a very complicated postoperative course, patient required multiple abdominal surgeries, multiple intubations, extubations, and the intubations, patient was a failure to wean, and he had multiple abdominal surgeries during his stay. Patient underwent tracheostomy, PEG tube placement, and we were able to transfer the patient to an extended care facility. He was at the extended care facility until about a week ago, his tracheostomy was capped, and he was [facility]. Patient has been noticing increased cough, increased shortness of breath, and significant purulent secretions from the tracheostomy tube when uncapped. O2 saturation was dipping down into the 50s and in the ER he had a saturation of 86% on 15 L high flow nasal cannula. Patient was also noted to have leukocytosis, hemoglobin was low, his troponin was slightly elevated, blood pressure was noted to be marginally low, patient was admitted initially to the cardiac floor, however supposedly he was noted to have blood pressure in the 70s systolic. Patient did receive multiple fluid boluses in the ER over 3 L were given, and we were notified about the patient on the floor having low blood pressure, I recommended transferred to the ICU planning to start the patient on norepinephrine. However over the last 12 hours in the ICU, his blood pressure has been stable patient did not require placement on any pressors. His beta blockers had been on hold because of low blood pressure, and he is maintained on amiodarone. His pro-calcitonin level was noted to be 2.60. And his chest x-ray showed left lower lobe atelectasis, suspect left lower lobe pneumonia. And he had small pleural effusions noted more so than right. Going back to his previous hospital admission, patient did have left lower lobe pneumonia and he did have left pleural effusion requiring thoracentesis once or twice. Cultures previously from the sputum were positive for Pseudomonas fluorescence/putida, sensitive to Zosyn and Levaquin and meropenem. Also sensitive to cefepime. Considering the patient's presentation with hypotension, shortness of breath, cough, abnormal chest x-ray, hypoxia, and considering his recent clinical history, we were asked to see him on consultation Patient was reevaluated today on 10/04/2020, patient remains in the ICU, he is on trach collar a 55%, patient went into atrial fibrillation with RVR yesterday, and he went on amiodarone at 1 mg/m, he also received 1 unit of packed RBCs for hemoglobin of 6.7, patient converted to sinus rhythm. Remains in sinus rhythm, patient is receiving tube feeds/Nepro at 65/65. He is also receiving free water. Chest x-ray is showing minimal improvement in the left lower lobe consolidation, clinically the patient is feeling better, he is empirically on antibiotics for healthcare acquired pneumonia/Zosyn. Previous sputum cultures were positive for Pseudomonas, hence his Zosyn was chosen as the drug of choice. CBC today showed WBC 7.2 hemoglobin 6.7, hence a unit of blood was given. Electrolytes showed low sodium but improving today is 148 from 150 to yesterday. BUN is 108 creatinine 3.4 to about the same as yesterday. Reevaluated today on 10/05/2020, patient remains in the ICU, remains on 55% trach collar. Off norepinephrine, IV fluids at KVO, tolerating enteral feeding via PEG tube, patient continues to have significant amount of tracheal secretions, he is now on Zosyn and vancomycin, as well as Zyvox. His cultures from the sputum are showing MSSA, hence we will discontinue vancomycin, keep him on Zosyn, and infectious disease to address his Zyvox. Patient may not even req uire Zyvox considering the culture is positive for MSSA. Chest x-ray is showing bilateral pleural effusions/small, renal functioning is slightly improved over the last 24 hours. Patient was switched to oral amiodarone, and he seems to be doing quite well, in sinus rhythm. Reevaluated today on 10/06/2020, patient remains in the ICU, remains on trach collar at 28%, sputum came back positive for Klebsiella and MSSA. Patient is on Zosyn and Zyvox. Remains on a small dose of norepinephrine at 0.01 mcg/kg/m, remains on enteral feeding/Nepro at 65 ML per hour, also receiving Questran. Patient continues to have significant output from his ileostomy. Patient is feeling better overall compared to how he felt on presentation. CBC today is relatively normal WBC count is 7.1 hemoglobin is 8.7, electrolytes are normal BUN is 93 creatinine is 3.17, improving over the last couple of days. Blood cultures remain negative. Again his sputum cultures are positive for MSSA and Klebsiella pneumonia. Reevaluated today on 10/07/2020, patient remains in the ICU, remains on trach collar at 28%, receiving antibiotics for his Klebsiella and MSSA pneumonia. Patient is only on Zosyn, and his Zyvox was discontinued since it was initially started by infectious disease for possible MRSA. Patient is requiring intermittently small doses of norepinephrine, clinically however the patient is much better compared to how he felt when he came in. He is in no distress, this morning he is off norepinephrine, but he didn't require norepinephrine last night, hence I will not transfer the patient out of the ICU yet. Chest x-ray continues to show by basilar atelectasis, possible left lower lobe consolidation which is chronic. Secretions from the tracheostomy are less and less. Renal profile is improving, creatinine is down to 2.9. CBC is normal. Electrolytes are normal. On 10/08/2020 the patient is being seen in follow-up in the intensive unit. His, comfortable and currently is on a trach collar with an FiO2 of 28%. The chest x-ray shows small bilateral pleural effusions and there is adequate expansion of both lungs and a orotracheal tube is in a good location. Note that he had MSSA and Klebsiella in his sputum and patient is currently on IV antibiotics and he is receiving IV Zosyn. Patient continues to have copious amount of secretions through his tracheostomy tube and the patient has a #8 [address] tracheostomy tube in place and he is requiring suctioning every 2 hours at least. He still has a lot of rhonchi He is currently off pressors. He is in normal sinus rhythm. He has also PEG tube for enteral feeding and nutritional support. PEG tube is in place and the patient is on Nepro at the rate of 75 mL an hour. He continues to have output through his ileostomy bag. The patient has significant amount of output through his ileostomy was in the order of every 12 hours. No abdominal distention. No signs of any respiratory distress. The creatinine is improving and is currently down to 2.5 and the patient's hemoglobin is at 8.4. No fever. No other issues overnight. Villafana cath is also in place. He is able to communicate. However he is still profoundly weak/in lower extremities. He is able to raise his arms against gravity. On 10/09/2020 patient seen in follow-up in the intensive care unit. Patient is awake and alert, is following commands, moving all 4 extremities, no signs of any respiratory distress, he is breathing comfortably, on 28% trach collar. His pulse ox is 98%. Still having some secretions from his tracheostomy, related he is on Zosyn for antibiotic coverage. Remains on nebulized bronchodilators, hemodynamically patient has been stable. No requiring any vasopressor support for last 48 hours. No acute events overnight. His sputum cultures were positive for MSSA and Klebsiella pneumonia. Today's labs have been reviewed, normal white count at 8.5, hemoglobin is 9.0, sodium is 137, potassium is 3.7, chloride is 110, B1 is 67, creatinine is 2.18. Patient has been nothing by mouth and has been receiving nutrition in the form of Nepro at 65 with a goal of 65. Patient has had significant diarrhea, liquid yellow output from his il eostomy. No complaints of chest pain. He is in sinus mechanism with a controlled rate. Chest x-ray shows basilar infiltrates and atelectasis with small effusions. On 10/10/2020 patient seen in follow-up in the intensive care unit. He is awake and alert, oriented 3, his calm and cooperative, he denies any acute distress, he still has significant amount of secretions that are being suctioned from the tracheostomy tube, he remains on 20% trach collar. He remains on antibiotics, his sputum cultures were positive for MSSA and Klebsiella pneumonia, he is on Zosyn, he has had no fever or chills. Lung sounds reveal minimal rhonchi, less congested and wheezy on today's exam compared a few days ago. Patient is tolerating tube feedings, he remains strict nothing by mouth, he is on Nepro at a rate of 65 ML per hour with a goal of 65 with 125 ML free water flushes every 3 hours. Abdomen is soft, ileostomy is still producing copious amount of liquid yellow diarrhea, which will be sent for C. diff. There has been a total of 2.5 L in stool output in the last 24 hours. Today's labs have been reviewed, white blood cell count is 8.9, hemoglobin is 8.9, CO2 is 18, sodium is 138, potassium is 3.9, chloride is 110, renal profile is improving despite the diarrhea, with BUN of 63, creatinine is 1.94. Patient is working with physical therapy and yesterday he apparently was up in the chair with assistance, tolerated activity well. On 10/11/2020 patient seen in follow-up in intensive care unit, she remains on 28% trach collar, the pulse ox of 97%, vital signs have been stable, his been afebrile, he did have a run of A. fib with RVR this morning and was restarted on amiodarone drip and was given 150 mg bolus of amiodarone. He is currently back in sinus mechanism with a controlled rate, receiving hydration with LR at 75 ML per hour, he continues to have large volume diarrhea out of his ileostomy, he had to 3.3 L in stool output in last 24 hours, C. diff was negative. tube feedings have been switched to vital AF currently running at 75 ML per hour, patient is getting free water flushes of 125 ML every 3 hours. Yesterday we placed him on lactated Ringer's at rate of 75 ML per hour, he is receiving or sodium bicarbonate tablets, his bicarbonate concentration at today's labs has improved and is up to 23. The renal profile slightly improved. Continues on Zosyn for MSSA and Klebsiella pneumonia in sputum cultures, blood cultures have been negative, patient has been afebrile, blood pressure stable, the patient continues on midodrine. Patient is awake and alert, following commands, responding appropriately, appears tired on today's exam. Denies any acute distress, his been working with physical therapy, he stood at the bedside, he is too weak to walk. Abdomen is soft, mid abdominal incision is covered with a dressing. On 10/12/2020 patient seen in follow-up in the intensive care unit. Patient is up in the recliner, breathing comfortably, she is on 20% trach collar, lung sounds are less congested and rhonchorous on today's exam. He is awake and oriented 3, denies any distress, he is currently on lactated Ringer's at a rate of 75 ML per hour, no recurrence of A. fib RVR overnight, his amiodarone is infusing at 0.5 mg/m and he will be transitioned to oral amiodarone today per cardiology, he remained in sinus rhythm. Vital signs are stable. He is on tube feedings of vital AF a rate of 90 with a goal of 90 with 125 ML free water flushes every 3 hours. His diarrhea output has decreased some, patient had 2 L in the liquid ostomy is stool output in the last 24 hours, he is on Lomotil when necessary. No abdominal pain. no nausea or vomiting no nausea or vomiting. The secretions out of the tracheostomy tube have decreased. Patient has been nothing by mouth, she would like to have a swallow evaluation to be evaluated for oral feedings. Today's chest x-ray has been reviewed showing left lower lobe infiltrate and/or pleural effusion, and improving aeration in the right lower lobe. Today's labs have been reviewed, showing white blood cell count of 12.4, hemoglobin of 9.3, electrolytes within normal limits, renal profile shows slight improvement in creatinine, down to 1.6 today. The patient is seen today 10/13/2020 in follow-up in the intensive care unit. He is currently sitting up in a recliner at the bedside. Awake and alert in no acute distress. He is maintaining good O2 saturations in the 90s on 28% trach collar. He is receiving lactated Ringer's at 75 ML's per hour. He is currently on amiodarone drip at 0.5 mg/m. He is being nourished with vital AF at 90 ML's per hour which is goal with 125 ML free water flushes every 3 hours. He still has significant amount of output and his ileostomy. 1.8 L in the past 24 hours. He's been initiated on Questran and octreotide. Chest x-ray is showing improving left lower lobe infiltrate with small effusion. Sputum was positive for Staphylococcus aureus, Klebsiella pneumoniae. He remains on Zosyn. He is status post 1 unit of packed red blood cells this admission. Current hemoglobin 8.8. Platelets 257. INR 1.4. White count 16.2. Sodium 137. Potassium 4.3. Creatinine 1.65. He is currently in sinus rhythm. He's been initiated on Lovenox 80 mg subcu every 12 hours per cardiology. The plan is to switch back to oral amiodarone. The patient is seen today 10/14/2020 and follow-up in the intensive care unit. He is currently sitting up in a chair at the bedside. Awake and alert in no acute distress. Continues to maintain good O2 saturations in the 90s on 28% t eleanor collar. He does remain on amiodarone drip at 0.5 mg/m. Currently in sinus rhythm. Lactated Ringer's at 20 ML's per hour. Being nourished with vital AF 90 ML's per hour which is goal. Chest x-ray today reveals chronic branch changes with a small left pleural effusion and bibasilar atelectas is/infiltrates. No significant change compared to previous. He is status post 1 unit of packed red blood cells this admission. Current hemoglobin 8.6. INR 1.4. White count 15.3. Sodium 136. Potassium 4.1. Creatinine 1.58. Remains on bronchodilators, Zosyn. Continued on octreotide and Questran with approximately 150 ML's of liquid out of the ileostomy per hour. Yesterday's modified barium swallow revealed evidence of aspiration. Recommended alternative means of nutrition. Continue PEG tube feedings. The patient is seen today 10/15/2020 in follow-up in the intensive care unit. He sitting up in a recliner at the bedside. Awake and alert in no acute distress. Continued on 28% FiO2 via trach collar. Maintaining O2 saturations in the 90s. He is continued on cefepime and bronchodilators. Chest x-ray reveals chronic parenchymal changes with small left greater than right pleural effusions and bibasilar atelectasis/infiltrate. He remains on amiodarone at 0.5 mg/m. No other IV fluids. He is still having high output of the ileostomy 150 ML's per hour. Continued on Questran and Sandostatin without much improvement. White count 16.0. Hemoglobin 8.5. Sodium 136. Potassium 4.2. Creatinine 1.43. Glucose 138. Albumin 2.6. He remains on Vital AF 1.2 at 90 ML's per parag r. On 10/16/2020 the patient is being seen in follow-up in the intensive care unit. His weight is gradually going up and is up to 79 kg. He is stool output is also dropped. He was producing up to 2.7 L of stool output and for yesterday he produced one 1.6 L. He does have an ileostomy with possibly a short gut and he is still receiving enteral feeding via his PEG tube for nutritional support and the patient is currently on vital high protein. He is on Questran, Lomotil and octreotide which has helped somewhat with his stool output. The patient remains on amiodarone 0.5 mg per minute regarding his chronic atrial fibrillation. Switching this patient oral medications via PEG tube has caused tachycardia for that reason sales and marketing representative opted to keep amiodarone drip. He is hemodynamically stable. Repeat chest x-ray from today shows only small bilateral pleural effusion. His creatinine is at 1.49. Hemoglobin is today at 8.2 with a white cell count of 14.6. His serum albumin is at 2.5 with a total protein of 5.5. His last swallow evaluation was done on 10/13/2020 and he failed the swallow evaluation. He remains on IV cefepime. In terms of anticoagulation, the patient remains on Lovenox 80 mg subcu every 12 hours. Concern about his absorption on oral medication for that reason the patient was given a combination of amiodarone and subcutaneous Lovenox. On 10/17/2020 I'm seeing Francisco for a follow-up. Is able to sit up on a chair, comfortable hemodynamically stable. Remains in atrial fibrillation. The active issue continues to be a high output from the ileostomy. The patient is receiving vital high protein at the rate of 90 mL an hour and output is so high and the patient has put out approximately 2.7 L of output from his ileostomy amount mainly yellowish/dark greenish material consistent with liquid the stool/feeding material.. We are still dealing with a high output, malabsorption situation and the patient remains on a combination of Questran, Lomotil and octreotide which has not helped a whole lot in terms of his stool output. Stool for C. diff has been negative. Antibiotic coverage is cefepime and Flagyl was also added by infectious disease. He remains on amiodarone drip at 0.5 mg per minute regarding his atrial fibrillation. He is on Lovenox for long-term anticoagulation. His tracheostomy tube in place and the patient has a Shiley tracheostomy tube and is able to speak around the tube and he does have rest or secretions which are being suctioned out every 4-6 hours. He is afebrile. Blood work is essentially stable with a hemoglobin of 7.5 and a white cell count of 15. His BUN is a 54 with a creatinine of 1.49 and his sodium is at 135. No other significant events. He is weak. He is regaining some of his strength back. He does have a good grasp using his hands. His legs remain weak. The patient is awake and oriented 3 and he has no specific complaints. Is sitting up on a recliner. On , patient is awake and alert on a recliner. No change in his condition. Is gradually getting stronger. Output from the ileostomy remains to be considerably higher in the order of 1.6 L over the past of hours. He is still on the same regimen of Questran, Lomotil and octreotide. He has no respiratory distress. He is on a trach collar. Stool for C. diff has been negative. He remains on a combination of cefepime and Flagyl. Renal function from today is stable with a BUN of 55 and a creatinine of 1.5. His serum al bumin was at 2.5 which was consistently stable over the past several days. No signs of any fluid overload. No third spacing. Active site is clean. Ostomy site is viable. No abdominal distention. His cardiac rhythm is sinus. He is on amiodarone 400 mg by mouth twice a day is also on metoprolol at a dose of 25 mg by mouth 3 times a day and the patient is also on Lovenox 80 mg subcu twice a day. On 10/19/2020, the patient is laying down comfortably in bed. No issues yesterday and no issues overnight. Output from his ileostomy has been 7 50 mL overnight. He is currently on vital AF rate of 90 mL an hour. No abdominal distention. Active site is dry clean and intact. Ileostomy site is viable and is producing high output. His renal function stable with a creatinine of 1.6. White cell count is at 1.2 which is also stable. The patient's hemoglobin today is at 6.7 without any obvious bleeding source and the patient will be given a unit of packed RBC. The pro-calcitonin is at 0.68 and the serum albumin is at 2.5. He remains on the same regimen of Questran, Lomotil and octreotide. Surgical wound sites of been dry clean and intact. The patient has some respiratory secretions and repeat sputum culture has been Sandimmune was the patient remains on IV cefepime. He is on a 28% trach collar and a chest x-ray showing some atelectatic changes and infiltrates in the lung bases bilaterally. He is also on Flagyl and this was added by infectious disease in regards to his high output ileostomy. Stool for C. diff has been negative. He is awake and alert and communicating. His cardiac rhythm is sinus and the patient is on amiodarone 400 mg by mouth twice a day and metoprolol 25 mg by mouth 3 times a day and he remains on therapeutic doses of Lovenox 80 mg subcu every 12 hours. Objective - Vital Signs Vital signs: Vital Signs Temp 96.5 F L 10/19/20 04:00 Pulse 74 10/19/20 06:00 Resp 21 10/19/20 06:00 BP 98/53 10/19/20 06:00 Pulse Ox 95 10/19/20 06:00 Intake & Output 10/18/20 10/18/20 10/19/20 06:59 18:59 06:59 Intake Total 1680 1830 690 Output Total 1850 1550 1480 Balance -170 280 -790 Weight 77 kg 77 kg 76.2 kg Intake: IV 600 600 600 Lactated Ringers 1,000 ml 600 600 600 @ 50 mls/hr IV .Q20H [facility] Rx#:[id number] Tube Feeding 990 1170 90 Other 90 60 Output: Urine 600 350 700 Stool 1250 1200 780 Other: Voiding Method Urinal Urinal Urinal # Voids 1 1 0 - Exam GENERAL EXAM: Alert, very pleasant, 80-year-old male patient on the 28% trach collar, comfortable in no apparent distress. HEAD: Normocephalic/atraumatic. EYES: Normal reaction of pupils, equal size. Conjunctiva pink, sclera white. NOSE: Clear with pink turbinates. THROAT: No erythema or exudates. NECK: Midline tracheostomy in place. No masses, no JVD, no thyroid enlargement, no adenopathy. CHEST: No chest wall deformity. Symmetrical expansion. LUNGS: Equal air entry with crackles in the left base. CVS: Regular rate and rhythm, normal S1 and S2, no gallops, no murmurs, no rubs ABDOMEN: Soft, nontender. No hepatosplenomegaly, normal bowel sounds, no guarding or rigidity. PEG tube exit site clean and dry. Midabdominal incision covered with dressing, is healing by secondary intention, sutures are in place, bed is 100% granulated wound bed. Right upper quadrant ileostomy in place connected to a Villafana drainage bag patient is having liquid yellow stool output EXTREMITIES: No clubbing, no edema, no cyanosis, 2+ pulses and upper and lower extremities. MUSCULOSKELETAL: Muscle strength and tone normal. SPINE: No scoliosis or deformity SKIN: No rashes CENTRAL NERVOUS SYSTEM: Alert and oriented -3. No focal deficits, tone is normal in all 4 extremities. PSYCHIATRIC: Alert and oriented -3. Appropriate affect. Intact judgment and insight. - Labs CBC & Chem 7: 10/19/20 04:22 10/19/20 04:22 Labs: Abnormal Lab Results - Last 24 Hours (Table) 10/18/20 10/18/20 10/18/20 Range/Units 09:08 11:26 12:59 WBC (3.8-10.6) k/uL RBC (4.30-5.90) m/uL Hgb (13.0-17.5) gm/dL Hct (39.0-53.0) % RDW (11.5-15.5) % Neutrophils # (1.3-7.7) k/uL Lymphocytes # (1.0-4.8) k/uL Sodium (137-145) mmol/L Carbon Dioxide (22-30) mmol/L BUN (9-20) mg/dL Creatinine (0.66-1.25) mg/dL Glucose (74-99) mg/dL POC Glucose (mg/dL) 170 H 143 H (75-99) mg/dL Procalcitonin 0.68 H (0.02-0.09) ng/mL Urine Protein (Negative) Urine Blood (Negative) Ur Leukocyte Esterase (Negative) Urine WBC (0-5) /hpf Urine Bacteria (None) /hpf 10/18/20 10/18/20 10/19/20 Range/Units 14:47 17:34 01:14 WBC (3.8-10.6) k/uL RBC (4.30-5.90) m/uL Hgb (13.0-17.5) gm/dL Hct (39.0-53.0) % RDW (11.5-15.5) % Neutrophils # (1.3-7.7) k/uL Lymphocytes # (1.0-4.8) k/uL Sodium (137-145) mmol/L Carbon Dioxide (22-30) mmol/L BUN (9-20) mg/dL Creatinine (0.66-1.25) mg/dL Glucose (74-99) mg/dL POC Glucose (mg/dL) 148 H 175 H (75-99) mg/dL Procalcitonin (0.02-0.09) ng/mL Urine Protein 1+ H (Negative) Urine Blood Small H (Negative) Ur Leukocyte Esterase Large H (Negative) Urine WBC 71 H (0-5) /hpf Urine Bacteria Rare H (None) /hpf 10/19/20 10/19/20 Range/Units 04:22 04:22 WBC 12.1 H (3.8-10.6) k/uL RBC 2.29 L (4.30-5.90) m/uL Hgb 6.7 L* (13.0-17.5) gm/dL Hct 20.8 L (39.0-53.0) % RDW 19.7 H (11.5-15.5) % Neutrophils # 10.2 H (1.3-7.7) k/uL Lymphocytes # 0.9 L (1.0-4.8) k/uL Sodium 136 L (137-145) mmol/L Carbon Dioxide 21 L (22-30) mmol/L BUN 60 H (9-20) mg/dL Creatinine 1.47 H (0.66-1.25) mg/dL Glucose 123 H (74-99) mg/dL POC Glucose (mg/dL) (75-99) mg/dL Procalcitonin (0.02-0.09) ng/mL Urine Protein (Negative) Urine Blood (Negative) Ur Leukocyte Esterase (Negative) Urine WBC (0-5) /hpf Urine Bacteria (None) /hpf Microbiology - Last 24 Hours (Table) 10/18/20 20:35 Sputum Culture - Preliminary Sputum 10/18/20 14:47 Urine Culture - Preliminary Urine,Voided Assessment and Plan Plan: 1 Bilateral lower lobe pneumonia with sepsis. The patient's chest x-ray shows interval improvement in the bilateral pleural effusions. The patient continues to have respiratory secretions. His previous cultures have shown a combination of Klebsiella and MSSA. The patient has been on IV cefepime since 09/13/2020. The Flagyl was also added by infectious disease. The chest x-ray from today shows small bilateral pleural effusions and small infiltrates in lung bases. There is elevation of the lungs bilaterally. Tracheostomy tube is in a good location. The patient is currently on 28% trach collar. Secretions aren't improving and there are less abundant and the patient is requiring less suctioning for now. No signs of any respiratory distress at this point in time. Patient was given another sputum sample and the results are still pending. Meanwhile the patient was kept on cefepime. The chest x-ray shows stable bilateral ulnar infiltrates in lung bases along with small effusions. He is not requiring frequent suctioning 2 Acute on chronic hypoxic respiratory failure secondary to pneumonia and underlying COPD, currently on a 28% trach collar and the patient required tracheostomy following a prolonged intubation mechanical ventilation post cardiac surgery. 3 Bilateral lower lobe pneumonia, secondary to MSSA, and Klebsiella pneumonia (cultured in the sputum) 4 Sepsis secondary to pneumonia, currently off pressors 5 Acute on chronic kidney injury secondary to sepsis, , improving, current creatinine 1.47 6 Moderate-severe COPD. 7 History of triple-vessel coronary artery disease, bypass surgery on 07/18/2020 with multiple postoperative complications 8 History of tracheostomy mostly because of failure to wean. The patient has a #8 Shiley tracheostomy tube in place 9 Benign essential hypertension. 10 Type 2 diabetes. 11 Dyslipidemia. 12 Chronic atrial fibrillation, on amiodarone and on anticoagulation therapy with Lovenox and he is also on oral amiodarone and oral metoprolol. Cardiac rhythm is sinus for some morning. 13 History of hypothyroidism. 14 History of ileostomy on 08/02/2020. 15 Chronic anemia 16 generalized motor weakness and debility seconds above-mentioned comorbidities 17 Large volume diarrhea, out of the ileostomy, C. diff has been ruled out and initiated on octreotide and Questran and Lomotil he is on vital high AF at the rate of 90 mL an hour 18 acute on top of chronic anemia, will receive a unit of packed RBC 19 stage IV sacral pressure ulcer currently dressed with silver alginate and pressure dressing Plan: Continue cefepime and Flagyl Give the patient another sputum sample and the results are still pending Continues with high output via the ileostomy Continued on octreotide and Zarina Will see if pharmacy has tincture of opium Transfused with a total of 2 units of packed RBC Pulmonary toileting and frequent suctioning lactated Ringer's at 50 MLS per hour of the free water flushes through his PEG tube amiodarone 400 mg twice a day in addition to Lopressor 25 mg 3 times a day and continue the Lovenox shots for now, the patient is in sinus rhythm Tracheostomy care and frequent suctioning Physical therapy We'll continue to monitor possibly transfer mild the ICU today We will continue to follow and make further recommendations based on his clinical status
[2020-10-19] MEDS: IPRATROPIUM-ALBUTEROL 3 ML NEB INHALATION SCH ×4 (07:40→19:25)
[2020-10-19] MEDS: BUDESONIDE 1 MG/2 ML NEBU INHALATION SCH ×2 (07:40→19:25)
--- NOTE | 2020-10-19 08:25 | P.PN ---
Subjective HPI: This is a pleasant 80-year-old male past medical history significant for coronary artery disease status post CABG July 2020, complicated po stoperative course with multiple abdominal surgeries, intubations and eventually underwent tracheostomy and PEG tube placement. He been discharged to [facility] however presented back to the hospital 08/01/2021 secondary to shortness breath. There has been some concern about whether patient is absorbing all of his medications as he does have extensive output from his ostomy. Therefore he was placed on amiodarone as well as subcutaneous Lovenox. Patient is seen and examined this morning at 0750 sitting in chair, no acute distress. He is not able to talk over his trach however denies any chest pain or pressure. He admits to some discomfort of his buttocks and back from sitting for prolonged periods of time. He remains in normal sinus rhythm currently. He is receiving enteral feeding via his PEG tube for nutritional support. 10/18/2020: Patient seen and examined. Patient denies any chest pain or pressure, shortness breath appears similar to prior. He did have some right lower extremity pain overnight however did not take any medications for it. He believes this was related to over doing his exercises. He was transitioned over to oral amiodarone as his ostomy output has been decreasing. Remains in normal sinus rhythm 10/19/2020 Patient seen and examined. Patient states he feels similar to yesterday. He does admit to vague short episodes of 2-3 seconds chest pain however does not feel like prior angina. Denies much change in his shortness breath. No other complaints. He remains in sinus rhythm on the amiodarone 400 mg twice a day. Remains on antibiotics. PHYSICAL EXAMINATION CONSTITUTIONAL: No apparent distress, chronically ill-appearing, tracheostomy and PEG tube. HEENT: Head is normocephalic. Pupils are equal, round. Sclerae anicteric. Mucous membranes of the mouth are moist. No JVD. No carotid bruit. CHEST EXAMINATION: Lungs diminished bilaterally No chest wall tenderness is noted on palpation or with deep breathing. HEART EXAMINATION: Regular rate and rhythm. S1, S2 heard. No murmurs, gallops or rub. ABDOMEN: Soft, nontender. Positive bowel sounds. Ileostomy draining liquid yellow/brown stool SKIN: Coccyx pressure ulcer, right heel pressure ulcer EXTREMITIES: 2+ peripheral pulses, no lower extremity edema and no calf tenderness. NEUROLOGIC EXAMINATION: Patient is awake, alert and oriented x3. ASSESSMENT 1. Paroxysmal atrial fibrillation, currently sinus rhythm 2. Bilateral lower lobe pneumonia 3. Acute on chronic respiratory failure 4. Acute kidney injury 5. COPD 6. CAD with triple-vessel disease status post bypass 07/18/2020 7. Anemia 8. Hypertension 9. Large volume of diarrhea, questionable absorption of some of his medications. PLAN Patient transition back to oral medications yesterday and has been doing well. Remains in sinus rhythm. Patient with prolonged course after CABG with multiple issues and failure to thrive. Majority of symptoms appear related to pneumonia, aspiration, abdominal surgeries, diarrhea etc. however for completeness we will check a 2-D echo to evaluate if there is any significant change in order to optimize management. Objective - Vital Signs Vital signs: Vital Signs Temp 96.5 F L 10/19/20 04:00 Pulse 85 10/19/20 08:07 Resp 23 10/19/20 07:00 BP 101/56 10/19/20 07:00 Pulse Ox 96 10/19/20 07:00 Intake & Output 10/18/20 10/19/20 10/19/20 18:59 06:59 18:59 Intake Total 1830 690 50 Output Total 1550 1480 0 Balance 280 -790 50 Weight 77 kg 76.2 kg Intake: IV 600 600 50 Lactated Ringers 1,000 ml 600 600 50 @ 50 mls/hr IV .Q20H WADE Rx#:[id number] Tube Feeding 1170 90 Other 60 Output: Urine 350 700 0 Stool 1200 780 Other: Voiding Method Urinal Urinal # Voids 1 0 0 - Labs CBC & Chem 7: 10/19/20 04:22 10/19/20 04:22 Labs: Abnormal Lab Results - Last 24 Hours (Table) 10/18/20 10/18/20 10/18/20 Range/Units 09:08 11:26 12:59 WBC (3.8-10.6) k/uL RBC (4.30-5.90) m/uL Hgb (13.0-17.5) gm/dL Hct (39.0-53.0) % RDW (11.5-15.5) % Neutrophils # (1.3-7.7) k/uL Lymphocytes # (1.0-4.8) k/uL Sodium (137-145) mmol/L Carbon Dioxide (22-30) mmol/L BUN (9-20) mg/dL Creatinine (0.66-1.25) mg/dL Glucose (74-99) mg/dL POC Glucose (mg/dL) 170 H 143 H (75-99) mg/dL Procalcitonin 0.68 H (0.02-0.09) ng/mL Urine Protein (Negative) Urine Blood (Negative) Ur Leukocyte Esterase (Negative) Urine WBC (0-5) /hpf Urine Bacteria (None) /hpf 10/18/20 10/18/20 10/19/20 Range/Units 14:47 17:34 01:14 WBC (3.8-10.6) k/uL RBC (4.30-5.90) m/uL Hgb (13.0-17.5) gm/dL Hct (39.0-53.0) % RDW (11.5-15.5) % Neutrophils # (1.3-7.7) k/uL Lymphocytes # (1.0-4.8) k/uL Sodium (137-145) mmol/L Carbon Dioxide (22-30) mmol/L BUN (9-20) mg/dL Creatinine (0.66-1.25) mg/dL Glucose (74-99) mg/dL POC Glucose (mg/dL) 148 H 175 H (75-99) mg/dL Procalcitonin (0.02-0.09) ng/mL Urine Protein 1+ H (Negative) Urine Blood Small H (Negative) Ur Leukocyte Esterase Large H (Negative) Urine WBC 71 H (0-5) /hpf Urine Bacteria Rare H (None) /hpf 10/19/20 10/19/20 Range/Units 04:22 04:22 WBC 12.1 H (3.8-10.6) k/uL RBC 2.29 L (4.30-5.90) m/uL Hgb 6.7 L* (13.0-17.5) gm/dL Hct 20.8 L (39.0-53.0) % RDW 19.7 H (11.5-15.5) % Neutrophils # 10.2 H (1.3-7.7) k/uL Lymphocytes # 0.9 L (1.0-4.8) k/uL Sodium 136 L (137-145) mmol/L Carbon Dioxide 21 L (22-30) mmol/L BUN 60 H (9-20) mg/dL Creatinine 1.47 H (0.66-1.25) mg/dL Glucose 123 H (74-99) mg/dL POC Glucose (mg/dL) (75-99) mg/dL Procalcitonin (0.02-0.09) ng/mL Urine Protein (Negative) Urine Blood (Negative) Ur Leukocyte Esterase (Negative) Urine WBC (0-5) /hpf Urine Bacteria (None) /hpf Microbiology - Last 24 Hours (Table) 10/18/20 20:35 Sputum Culture - Preliminary Sputum 10/18/20 14:47 Urine Culture - Preliminary Urine,Voided
[2020-10-19] MEDS: TAMSULOSIN 0.4 MG CAP.ER.24H PO SCH (09:34)
[2020-10-19] MEDS: ASPIRIN 81 MG PO SCH (09:34)
[2020-10-19] MEDS: CEFEPIME 2 GM in SODIUM CHLORIDE 0.9% 100 ML IVPB SCH ×2 (09:35→22:06)
[2020-10-19] MEDS: METOPROLOL TARTRATE 25 MG TAB PO SCH ×3 (09:35→22:07)
[2020-10-19] MEDS: MIDODRINE 5 MG TAB PO SCH ×2 (09:35→17:38)
[2020-10-19] MEDS: AMIODARONE 200 MG TAB PO SCH ×2 (09:35→22:07)
[2020-10-19] MEDS: OCTREOTIDE 100 MCG/ML INJ SQ SCH ×2 (09:37→17:40)
[2020-10-19] MEDS: ENOXAPARIN 80 MG/0.8 ML SYRINGE SQ SCH ×2 (09:37→22:09)
[2020-10-19] MEDS: CHOLESTYRAMINE (WITH SUGAR) 4 GM PACKET PO SCH ×2 (09:37→17:39)
[2020-10-19] MEDS: metroNIDAZOLE 500 MG TAB PO SCH ×3 (09:37→22:09)
--- NOTE | 2020-10-19 10:06 | ECHOF ---
Referral Reason:re: s/p CABG, SOB MEASUREMENTS -------- HEIGHT: 182.9 cm WEIGHT: 75.7 kg BP: 101/56 RVIDd: 4.2 cm (< 3.3) IVSd: 1.5 cm (0.6 - 1.1) LVIDd: 3.7 cm (3.9 - 5.3) LVPWd: 1.4 cm (0.6 - 1.1) IVSs: 1.9 cm LVIDs: 2.7 cm LVPWs: 1.5 cm LAESV Index (A-L): 29.96 ml/m Ao Diam: 3.5 cm (2.0 - 3.7) AV Cusp: 1.4 cm (1.5 - 2.6) MV E Bhavin: 0.54 m/s MV DecT: 246 ms MV A Bhavin: 1.13 m/s MV E/A Ratio: 0.48 RAP: 5.00 mmHg RVSP: 20.07 mmHg FINDINGS -------- Sinus rhythm. This was a technically difficult study with suboptimal views. The left ventricular size is normal. There is moderate concentric left ventricular hypertrophy. O verall left ventricular systolic function is low-normal with, an EF between 50 - 55 %. Septal wall motion is delayed and consistent with prior cardiac surgery. The right ventricle is moderately enlarged. Normal LA size by volume 22+/-6 ml/m2. The right atrium was not well visualized. 5.0mg of Lumason was utilized for enhancement of images Interatrial and interventricular septum intact. There is no evidence of aortic regurgitation. There is no evidence of aortic stenosis. No mitral regurgitation. Mild tricuspid regurgitation present. There is no evidence of pulmonary hypertension. The right v entricular systolic pressure, as measured by Doppler, is 20.07mmHg. The pulmonic valve was not well visualized. The aortic root size is normal. IVC Not well visulized. There is a small pericardial effusion is located near the right ventricle. CONCLUSIONS -------- 1. The left ventricular size is normal. 2. There is moderate concentric left ventricular hypertrophy. 3. Overall left ventricular systolic function is low-normal with, an EF between 50 - 55 %. 4. The right ventricle is moderately enlarged. 5. Mild tricuspid regurgitation present. LOG HANDLER: Cally Ramsey SISSY
--- NOTE | 2020-10-19 10:53 | P.PN ---
Subjective Patient is seen in follow for acute kidney injury. Renal function stable. Has been voiding. Denies chest pain or shortness of breath. He is receiving tube feeding. Continues to have high output from the ileostomy. Working with speech therapy daily. Hemodynamically stable. Vital signs are stable. General: The patient appeared well nourished and normally developed. HEENT: Tracheostomy noted. LUNGS: Breath sounds decreased. HEART: Rate and Rhythm are regular. ABDOMEN: Soft, no distention noted. Ileostomy noted. EXTREMITITES: No edema. Objective - Vital Signs Vital signs: Vital Signs Temp 96.5 F L 10/19/20 04:00 Pulse 74 10/19/20 10:44 Resp 23 10/19/20 07:00 BP 101/56 10/19/20 07:00 Pulse Ox 96 10/19/20 07:00 Intake & Output 10/18/20 10/19/20 10/19/20 18:59 06:59 18:59 Intake Total 1830 690 600 Output Total 1550 1480 1000 Balance 280 -790 -400 Weight 77 kg 76.2 kg Intake: IV 600 600 300 Cefepime 2 gm In Sodium 100 Chloride 0.9% 100 ml @ 25 mls/hr IVPB Q12HR W[facility] Rx #:[id number] Lactated Ringers 1,000 ml 600 600 200 @ 50 mls/hr IV .Q20H WADE Rx#:[id number] Tube Feeding 1170 90 270 Blood Product 0 Rc As-1 Unit 0 [id number] Other 60 30 Output: Urine 350 700 0 Stool 0804 703 7926 Other: Voiding Method Urinal Urinal # Voids 1 0 0 - Labs CBC & Chem 7: 10/19/20 04:22 10/19/20 04:22 Labs: Abnormal Lab Results - Last 24 Hours (Table) 10/18/20 10/18/20 10/18/20 Range/Units 09:08 11:26 12:59 WBC (3.8-10.6) k/uL RBC (4.30-5.90) m/uL Hgb (13.0-17.5) gm/dL Hct (39.0-53.0) % RDW (11.5-15.5) % Neutrophils # (1.3-7.7) k/uL Lymphocytes # (1.0-4.8) k/uL Sodium (137-145) mmol/L Carbon Dioxide (22-30) mmol/L BUN (9-20) mg/dL Creatinine (0.66-1.25) mg/dL Glucose (74-99) mg/dL POC Glucose (mg/dL) 170 H 143 H (75-99) mg/dL Procalcitonin 0.68 H (0.02-0.09) ng/mL Urine Protein (Negative) Urine Blood (Negative) Ur Leukocyte Esterase (Negative) Urine WBC (0-5) /hpf Urine Bacteria (None) /hpf Crossmatch 10/18/20 10/18/20 10/19/20 Range/Units 14:47 17:34 01:14 WBC (3.8-10.6) k/uL RBC (4.30-5.90) m/uL Hgb (13.0-17.5) gm/dL Hct (39.0-53.0) % RDW (11.5-15.5) % Neutrophils # (1.3-7.7) k/uL Lymphocytes # (1.0-4.8) k/uL Sodium (137-145) mmol/L Carbon Dioxide (22-30) mmol/L BUN (9-20) mg/dL Creatinine (0.66-1.25) mg/dL Glucose (74-99) mg/dL POC Glucose (mg/dL) 148 H 175 H (75-99) mg/dL Procalcitonin (0.02-0.09) ng/mL Urine Protein 1+ H (Negative) Urine Blood Small H (Negative) Ur Leukocyte Esterase Large H (Negative) Urine WBC 71 H (0-5) /hpf Urine Bacteria Rare H (None) /hpf Crossmatch 10/19/20 10/19/20 10/19/20 Range/Units 04:22 04:22 07:16 WBC 12.1 H (3.8-10.6) k/uL RBC 2.29 L (4.30-5.90) m/uL Hgb 6.7 L* (13.0-17.5) gm/dL Hct 20.8 L (39.0-53.0) % RDW 19.7 H (11.5-15.5) % Neutrophils # 10.2 H (1.3-7.7) k/uL Lymphocytes # 0.9 L (1.0-4.8) k/uL Sodium 136 L (137-145) mmol/L Carbon Dioxide 21 L (22-30) mmol/L BUN 60 H (9-20) mg/dL Creatinine 1.47 H (0.66-1.25) mg/dL Glucose 123 H (74-99) mg/dL POC Glucose (mg/dL) (75-99) mg/dL Procalcitonin (0.02-0.09) ng/mL Urine Protein (Negative) Urine Blood (Negative) Ur Leukocyte Esterase (Negative) Urine WBC (0-5) /hpf Urine Bacteria (None) /hpf Crossmatch See Detail Microbiology - Last 24 Hours (Table) 10/18/20 20:35 Gram Stain - Preliminary Sputum Sputum Culture - Preliminary 10/18/20 14:47 Urine Culture - Preliminary Urine,Voided Assessment and Plan Plan: Assessment: 1. Acute kidney injury secondary to ATN secondary to hypotension and hemodynamic instability. Renal function improved from admission. Creatinine stable at 1.47 today. No hydronephrosis noted on kidney ultrasound. 2. Chronic kidney disease stage III with baseline creatinine 1.2-1.5 secondary to nephrosclerosis. 3. A. fib with RVR. Maintained on amiodarone and metoprolol. 4. Hypernatremia secondary to lack of oral water intake. Resolved. 5. Failed swallow eval maintained on tube feeding. 6. Diabetes mellitus. 7. Anemia of chronic kidney disease. Maintained on Aranesp. Status post IV iron and blood transfusion this admission. 8. 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 Currently has ileostomy. 9. Sepsis secondary to pneumonia, on antibiotics. Plan: Maintain tube feeding. Continue to monitor renal function and urine output. Avoid nephrotoxins. He will be receiving another 2 units of blood today. No changes from nephrology standpoint.
[2020-10-19 12:33] LABS: Glucose,Whole Blood 152 mg/dL (75-99)
--- NOTE | 2020-10-19 13:40 | P.PN ---
Subjective Progress Note Date: 10/19/20 CHIEF COMPLAINT: Respiratory distress HISTORY OF PRESENT ILLNESS: Patient seen and examined with Dr. bangura. Patient is being followed in regards to his abdominal wound at incision site. Patient remains in the ICU. He is lying in bed. He denies any abdominal pain. Patient is still having high ileostomy output. The color has changed from yellow to brown output through his ileostomy. This possibly could be related to the Sandostatin. He remains on Questran and Lomotil and Sandostatin to help slow ileostomy output. He does likely have short gut syndrome. Antibiotics switched from Zosyn to cefepime by ID. Zosyn may have contributed to high ostomy output. Tube feedings changed to vital 1.2. He failed his modified barium swallow it did show evidence of aspiration. Patient is afebrile. Trach collaring 100%. WBC 12.1 hemoglobin is down to 6.7 creatinine 1.47. Patient is receiving 2 units of blood today for hemoglobin of 6.7 PHYSICAL EXAM: VITAL SIGNS: Reviewed. GENERAL: Well-developed in no acute distress. HEENT: No sclera icterus. Extraocular movements grossly intact. Moist buccal mucosa. Head is atraumatic, normocephalic. ABDOMEN: Soft. Nondistended. Nontender. Dressing clean dry and intact. Patient has a brownish liquidy stool coming through the ileostomy. Hematoma noted on the left abdomen NEUROLOGIC: Alert and oriented. Cranial nerves II through XII grossly intact. ASSESSMENT: 1. Abdominal wound at surgical incision site. 2. High ileostomy output 3. History of ischemic small bowel with evidence of pneumatosis status post small bowel resection on 07/24/2020. 4. History of intraperitoneal hemorrhage and small bowel ischemia status post exploratory laparotomy, washout of peritoneal cavity and ileostomy with small bowel resection on 08/02/2020 5. 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 Acute hypoxic respiratory failure secondary to pneumonia 7. Sepsis secondary to pneumonia 8. Acute kidney injury 9. chronic Anemia: With known chronic kidney disease and iron deficiency. He did require blood transfusion and IV Iron during this admission PLAN: -Recommend ileostomy reversal when patient is medically stable -Continue wound care with Aquacel dressing -Continue Sandostatin, Lomotil and Questran to help with high-volume ileostomy output -Continue supportive care -Continue ICU management -Continue antibiotics per ID Physician Tobacco Sprayer note has been reviewed by physician. Signing provider agrees with the documented findings, assessment, and plan of care. Objective - Vital Signs Vital signs: Vital Signs Temp 97.6 F 10/19/20 12:00 Pulse 66 10/19/20 12:00 Resp 20 10/19/20 12:00 BP 113/60 10/19/20 12:00 Pulse Ox 100 10/19/20 12:00 Intake & Output 10/18/20 10/19/20 10/19/20 18:59 06:59 18:59 Intake Total 1830 690 860 Output Total 1550 1480 1350 Balance 280 -790 -490 Weight 77 kg 76.2 kg Intake: IV 600 600 350 Cefepime 2 gm In Sodium 100 Chloride 0.9% 100 ml @ 25 mls/hr IVPB Q12HR [facility] Rx #:[id number] Lactated Ringers 1,000 ml 600 600 250 @ 50 mls/hr IV .Q20H [facility] Rx#:[id number] Tube Feeding 1170 90 450 Blood Product 0 Rc As-1 Unit 0 [id number] Other 60 60 Output: Urine 350 700 350 Stool 6499 136 5133 Other: Voiding Method Urinal Urinal Urinal # Voids 1 0 0 - Labs CBC & Chem 7: 10/19/20 04:22 10/19/20 04:22 Labs: Abnormal Lab Results - Last 24 Hours (Table) 10/18/20 10/18/20 10/18/20 Range/Units 09:08 14:47 17:34 WBC (3.8-10.6) k/uL RBC (4.30-5.90) m/uL Hgb (13.0-17.5) gm/dL Hct (39.0-53.0) % RDW (11.5-15.5) % Neutrophils # (1.3-7.7) k/uL Lymphocytes # (1.0-4.8) k/uL Sodium (137-145) mmol/L Carbon Dioxide (22-30) mmol/L BUN (9-20) mg/dL Creatinine (0.66-1.25) mg/dL Glucose (74-99) mg/dL POC Glucose (mg/dL) 148 H (75-99) mg/dL Procalcitonin 0.68 H (0.02-0.09) ng/mL Urine Protein 1+ H (Negative) Urine Blood Small H (Negative) Ur Leukocyte Esterase Large H (Negative) Urine WBC 71 H (0-5) /hpf Urine Bacteria Rare H (None) /hpf Crossmatch 10/19/20 10/19/20 10/19/20 Range/Units 01:14 04:22 04:22 WBC 12.1 H (3.8-10.6) k/uL RBC 2.29 L (4.30-5.90) m/uL Hgb 6.7 L* (13.0-17.5) gm/dL Hct 20.8 L (39.0-53.0) % RDW 19.7 H (11.5-15.5) % Neutrophils # 10.2 H (1.3-7.7) k/uL Lymphocytes # 0.9 L (1.0-4.8) k/uL Sodium 136 L (137-145) mmol/L Carbon Dioxide 21 L (22-30) mmol/L BUN 60 H (9-20) mg/dL Creatinine 1.47 H (0.66-1.25) mg/dL Glucose 123 H (74-99) mg/dL POC Glucose (mg/dL) 175 H (75-99) mg/dL Procalcitonin (0.02-0.09) ng/mL Urine Protein (Negative) Urine Blood (Negative) Ur Leukocyte Esterase (Negative) Urine WBC (0-5) /hpf Urine Bacteria (None) /hpf Crossmatch 10/19/20 10/19/20 Range/Units 07:16 12:31 WBC (3.8-10.6) k/uL RBC (4.30-5.90) m/uL Hgb (13.0-17.5) gm/dL Hct (39.0-53.0) % RDW (11.5-15.5) % Neutrophils # (1.3-7.7) k/uL Lymphocytes # (1.0-4.8) k/uL Sodium (137-145) mmol/L Carbon Dioxide (22-30) mmol/L BUN (9-20) mg/dL Creatinine (0.66-1.25) mg/dL Glucose (74-99) mg/dL POC Glucose (mg/dL) 152 H (75-99) mg/dL Procalcitonin (0.02-0.09) ng/mL Urine Protein (Negative) Urine Blood (Negative) Ur Leukocyte Esterase (Negative) Urine WBC (0-5) /hpf Urine Bacteria (None) /hpf Crossmatch See Detail Microbiology - Last 24 Hours (Table) 10/18/20 09:08 Blood Culture - Preliminary Blood No Growth after 24 hours 10/18/20 20:35 Gram Stain - Preliminary Sputum Sputum Culture - Preliminary 10/18/20 14:47 Urine Culture - Preliminary Urine,Voided
[2020-10-19 17:24] LABS: Glucose,Whole Blood 118 mg/dL (75-99)
[2020-10-19 19:53] LABS: Anisocytosis Slight; Basophils # (A) 0.1 k/uL (0-0.2); Basophils % (A) 1 %; Eosinophils # (A) 0.2 k/uL (0-0.7); Eosinophils % (A) 1 %; HCT 30.3 % (39.0-53.0); HGB 10.1 gm/dL (13.0-17.5); Hypochromasia Slight; Lymphocytes # (A) 0.8 k/uL (1.0-4.8); Lymphocytes % (A) 5 %; MCH 29.2 pg (25.0-35.0); MCHC 33.2 g/dL (31.0-37.0); Mean Platelet Volume 8.3; Monocytes # (A) 0.9 k/uL (0-1.0); Monocytes % (A) 5 %; Neutrophils % (A) 87 %; Platelet Count 220 k/uL (150-450); Poikilocytosis Slight; RBC 3.44 m/uL (4.30-5.90); RDW 18.2 % (11.5-15.5); WBC 17.2 k/uL (3.8-10.6)
[2020-10-19] MEDS: FAMOTIDINE 20 MG TAB PO SCH (22:06)
[2020-10-19] MEDS: ATORVASTATIN 40 MG TAB PEG/G-TUBE SCH (22:07)
[2020-10-19] MEDS: ACETAMINOPHEN TAB 325 MG TAB PO PRN (22:07)
[2020-10-19] MEDS: QUEtiapine 25 MG TAB PO SCH (22:09)
--- NOTE | 2020-10-19 23:10 | PN ---
PROGRESS NOTE DATE OF SERVICE: 10/19/2020 REASON FOR FOLLOWUP: Pneumonia. INTERVAL HISTORY: The patient is currently afebrile. Patient is breathing comfortably on a trach collar. He is hemodynamically stable. FiO2 is stable. Still has increased output in the ileostomy, but no worsening. EXAMINATION: His blood pressure is 122/87, pulse of 73, temperature 97.8. He is 97% on trach collar. General description is a middle-aged male lying in bed in no distress. Respiratory system: Unlabored breathing. Clear to auscultation anteriorly. Heart S1, S2. Regular rate and rhythm. ABDOMEN: Soft, no tenderness. LABS: Hemoglobin is 10.3, white count 17.2, BUN of 16, creatinine 1.47. DIAGNOSTIC IMPRESSION AND PLAN: Patient with a component of pneumonia. Initial sputum was MSSA and Klebsiella. The patient is covered with Cefepime and Flagyl with concern for possible aspiration etiology. Patient noticed to have a jump in the white count to be monitored closely. Repeat culture has been ordered and antibiotic will be adjusted if needed. MMODL / IJN: [id number] /
[2020-10-19 23:44] LABS: Glucose,Whole Blood 154 mg/dL (75-99)
[2020-10-20] MEDS: MIDODRINE 5 MG TAB PO SCH ×4 (00:08→23:09)
[2020-10-20] MEDS: DIPHENOX-ATROP 2.5-0.025 MG 1 EACH TAB PO SCH ×5 (00:08→23:09)
[2020-10-20] MEDS: INSULIN ASPART (NovoLOG) 100 UNIT/ML VIAL SQ SCH ×4 (00:08→17:05)
[2020-10-20] MEDS: OCTREOTIDE 100 MCG/ML INJ SQ SCH ×4 (00:12→23:09)
[2020-10-20] MEDS: LACTATED RINGERS 1,000 ML IV SCH ×2 (00:13→21:20)
[2020-10-20 05:21] LABS: Glucose,Whole Blood 153 mg/dL (75-99)
[2020-10-20] MEDS: LEVOTHYROXINE 50 MCG TAB PEG/G-TUBE SCH (05:32)
[2020-10-20 05:39] LABS: Anisocytosis Slight; Basophils # (A) 0.1 k/uL (0-0.2); Basophils % (A) 1 %; Eosinophils # (A) 0.2 k/uL (0-0.7); Eosinophils % (A) 1 %; HCT 29.6 % (39.0-53.0); HGB 9.4 gm/dL (13.0-17.5); Hypochromasia Slight; Lymphocytes # (A) 0.9 k/uL (1.0-4.8); Lymphocytes % (A) 7 %; MCH 28.8 pg (25.0-35.0); MCHC 31.8 g/dL (31.0-37.0); MCV 90.4 fL (80.0-100.0); Mean Platelet Volume 7.7; Monocytes # (A) 0.8 k/uL (0-1.0); Monocytes % (A) 6 %; Neutrophils # (A) 11.2 k/uL (1.3-7.7); Neutrophils % (A) 85 %; Platelet Count 206 k/uL (150-450); Poikilocytosis Slight; RBC 3.27 m/uL (4.30-5.90); RDW 18.3 % (11.5-15.5); WBC 13.2 k/uL (3.8-10.6)
[2020-10-20 06:02] LABS: Calcium 8.8 mg/dL (8.4-10.2)
--- NOTE | 2020-10-20 07:06 | P.PN ---
Subjective Progress Note Date: 10/20/20 Acute on chronic hypoxic respiratory failure secondary to left lower lobe pneumonia and sepsis This is a 80-year-old white male familiar to my service, in July 2020, patient underwent elective coronary artery bypass grafting. He had a very complicated postoperative course, patient required multiple abdominal surgeries, multiple intubations, extubations, and the intubations, patient was a failure to wean, and he had multiple abdominal surgeries during his stay. Patient underwent tracheostomy, PEG tube placement, and we were able to transfer the patient to an extended care facility. He was at the extended care facility until about a week ago, his tracheostomy was capped, and he was transferred to [facility] in [facility]. Patient has been noticing increased cough, increased shortness of breath, and significant purulent secretions from the tracheostomy tube when uncapped. O2 saturation was dipping down into the 50s and in the ER he had a saturation of 86% on 15 L high flow nasal cannula. Patient was also noted to have leukocytosis, hemoglobin was low, his troponin was slightly elevated, blood pressure was noted to be marginally low, patient was admitted initially to the cardiac floor, however supposedly he was noted to have blood pressure in the 70s systolic. Patient did receive multiple fluid boluses in the ER over 3 L were given, and we were notified about the patient on the floor having low blood pressure, I recommended transferred to the ICU planning to start the patient on norepinephrine. However over the last 12 hours in the ICU, his blood pressure has been stable patient did not require placement on any pressors. His beta blockers had been on hold because of low blood pressure, and he is maintained on amiodarone. His pro-calcitonin level was noted to be 2.60. And his chest x-ray showed left lower lobe atelectasis, suspect left lower lobe pneumonia. And he had small pleural effusions noted more so than right. Going back to his previous hospital admission, patient did have left lower lobe pneumonia and he did have left pleural effusion requiring thoracentesis once or twice. Cultures previously from the sputum were positive for Pseudomonas fluorescence/putida, sensitive to Zosyn and Levaquin and meropenem. Also sensitive to cefepime. Considering the patient's presentation with hypotension, shortness of breath, cough, abnormal chest x-ray, hypoxia, and considering his recent clinical history, we were asked to see him on consultation Patient was reevaluated today on 10/04/2020, patient remains in the ICU, he is on trach collar a 55%, patient went into atrial fibrillation with RVR yesterday, and he went on amiodarone at 1 mg/m, he also received 1 unit of packed RBCs for hemoglobin of 6.7, patient converted to sinus rhythm. Remains in sinus rhythm, patient is receiving tube feeds/Nepro at 65/65. He is also receiving free water. Chest x-ray is showing minimal improvement in the left lower lobe consolidation, clinically the patient is feeling better, he is empirically on antibiotics for healthcare acquired pneumonia/Zosyn. Previous sputum cultures were positive for Pseudomonas, hence his Zosyn was chosen as the drug of choice. CBC today showed WBC 7.2 hemoglobin 6.7, hence a unit of blood was given. Electrolytes showed low sodium but improving today is 148 from 150 to yesterday. BUN is 108 creatinine 3.4 to about the same as yesterday. Reevaluated today on 10/05/2020, patient remains in the ICU, remains on 55% trach collar. Off norepinephrine, IV fluids at KVO, tolerating enteral feeding via PEG tube, patient continues to have significant amount of tracheal secretions, he is now on Zosyn and vancomycin, as well as Zyvox. His cultures from the sputum are showing MSSA, hence we will discontinue vancomycin, keep him on Zosyn, and infectious disease to address his Zyvox. Patient may not even req uire Zyvox considering the culture is positive for MSSA. Chest x-ray is showing bilateral pleural effusions/small, renal functioning is slightly improved over the last 24 hours. Patient was switched to oral amiodarone, and he seems to be doing quite well, in sinus rhythm. Reevaluated today on 10/06/2020, patient remains in the ICU, remains on trach collar at 28%, sputum came back positive for Klebsiella and MSSA. Patient is on Zosyn and Zyvox. Remains on a small dose of norepinephrine at 0.01 mcg/kg/m, remains on enteral feeding/Nepro at 65 ML per hour, also receiving Questran. Patient continues to have significant output from his ileostomy. Patient is feeling better overall compared to how he felt on presentation. CBC today is relatively normal WBC count is 7.1 hemoglobin is 8.7, electrolytes are normal BUN is 93 creatinine is 3.17, improving over the last couple of days. Blood cultures remain negative. Again his sputum cultures are positive for MSSA and Klebsiella pneumonia. Reevaluated today on 10/07/2020, patient remains in the ICU, remains on trach collar at 28%, receiving antibiotics for his Klebsiella and MSSA pneumonia. Patient is only on Zosyn, and his Zyvox was discontinued since it was initially started by infectious disease for possible MRSA. Patient is requiring intermittently small doses of norepinephrine, clinically however the patient is much better compared to how he felt when he came in. He is in no distress, this morning he is off norepinephrine, but he didn't require norepinephrine last night, hence I will not transfer the patient out of the ICU yet. Chest x-ray continues to show by basilar atelectasis, possible left lower lobe consolidation which is chronic. Secretions from the tracheostomy are less and less. Renal profile is improving, creatinine is down to 2.9. CBC is normal. Electrolytes are normal. On 10/08/2020 the patient is being seen in follow-up in the intensive unit. His, comfortable and currently is on a trach collar with an FiO2 of 28%. The chest x-ray shows small bilateral pleural effusions and there is adequate expansion of both lungs and a orotracheal tube is in a good location. Note that he had MSSA and Klebsiella in his sputum and patient is currently on IV antibiotics and he is receiving IV Zosyn. Patient continues to have copious amount of secretions through his tracheostomy tube and the patient has a #8 [address] tracheostomy tube in place and he is requiring suctioning every 2 hours at least. He still has a lot of rhonchi He is currently off pressors. He is in normal sinus rhythm. He has also PEG tube for enteral feeding and nutritional support. PEG tube is in place and the patient is on Nepro at the rate of 75 mL an hour. He continues to have output through his ileostomy bag. The patient has significant amount of output through his ileostomy was in the order of every 12 hours. No abdominal distention. No signs of any respiratory distress. The creatinine is improving and is currently down to 2.5 and the patient's hemoglobin is at 8.4. No fever. No other issues overnight. Villafana cath is also in place. He is able to communicate. However he is still profoundly weak/in lower extremities. He is able to raise his arms against gravity. On 10/09/2020 patient seen in follow-up in the intensive care unit. Patient is awake and alert, is following commands, moving all 4 extremities, no signs of any respiratory distress, he is breathing comfortably, on 28% trach collar. His pulse ox is 98%. Still having some secretions from his tracheostomy, related he is on Zosyn for antibiotic coverage. Remains on nebulized bronchodilators, hemodynamically patient has been stable. No requiring any vasopressor support for last 48 hours. No acute events overnight. His sputum cultures were positive for MSSA and Klebsiella pneumonia. Today's labs have been reviewed, normal white count at 8.5, hemoglobin is 9.0, sodium is 137, potassium is 3.7, chloride is 110, B1 is 67, creatinine is 2.18. Patient has been nothing by mouth and has been receiving nutrition in the form of Nepro at 65 with a goal of 65. Patient has had significant diarrhea, liquid yellow output from his il eostomy. No complaints of chest pain. He is in sinus mechanism with a controlled rate. Chest x-ray shows basilar infiltrates and atelectasis with small effusions. On 10/10/2020 patient seen in follow-up in the intensive care unit. He is awake and alert, oriented 3, his calm and cooperative, he denies any acute distress, he still has significant amount of secretions that are being suctioned from the tracheostomy tube, he remains on 20% trach collar. He remains on antibiotics, his sputum cultures were positive for MSSA and Klebsiella pneumonia, he is on Zosyn, he has had no fever or chills. Lung sounds reveal minimal rhonchi, less congested and wheezy on today's exam compared a few days ago. Patient is tolerating tube feedings, he remains strict nothing by mouth, he is on Nepro at a rate of 65 ML per hour with a goal of 65 with 125 ML free water flushes every 3 hours. Abdomen is soft, ileostomy is still producing copious amount of liquid yellow diarrhea, which will be sent for C. diff. There has been a total of 2.5 L in stool output in the last 24 hours. Today's labs have been reviewed, white blood cell count is 8.9, hemoglobin is 8.9, CO2 is 18, sodium is 138, potassium is 3.9, chloride is 110, renal profile is improving despite the diarrhea, with BUN of 63, creatinine is 1.94. Patient is working with physical therapy and yesterday he apparently was up in the chair with assistance, tolerated activity well. On 10/11/2020 patient seen in follow-up in intensive care unit, she remains on 28% trach collar, the pulse ox of 97%, vital signs have been stable, his been afebrile, he did have a run of A. fib with RVR this morning and was restarted on amiodarone drip and was given 150 mg bolus of amiodarone. He is currently back in sinus mechanism with a controlled rate, receiving hydration with LR at 75 ML per hour, he continues to have large volume diarrhea out of his ileostomy, he had to 3.3 L in stool output in last 24 hours, C. diff was negative. tube feedings have been switched to vital AF currently running at 75 ML per hour, patient is getting free water flushes of 125 ML every 3 hours. Yesterday we placed him on lactated Ringer's at rate of 75 ML per hour, he is receiving or sodium bicarbonate tablets, his bicarbonate concentration at today's labs has improved and is up to 23. The renal profile slightly improved. Continues on Zosyn for MSSA and Klebsiella pneumonia in sputum cultures, blood cultures have been negative, patient has been afebrile, blood pressure stable, the patient continues on midodrine. Patient is awake and alert, following commands, responding appropriately, appears tired on today's exam. Denies any acute distress, his been working with physical therapy, he stood at the bedside, he is too weak to walk. Abdomen is soft, mid abdominal incision is covered with a dressing. On 10/12/2020 patient seen in follow-up in the intensive care unit. Patient is up in the recliner, breathing comfortably, she is on 20% trach collar, lung sounds are less congested and rhonchorous on today's exam. He is awake and oriented 3, denies any distress, he is currently on lactated Ringer's at a rate of 75 ML per hour, no recurrence of A. fib RVR overnight, his amiodarone is infusing at 0.5 mg/m and he will be transitioned to oral amiodarone today per cardiology, he remained in sinus rhythm. Vital signs are stable. He is on tube feedings of vital AF a rate of 90 with a goal of 90 with 125 ML free water flushes every 3 hours. His diarrhea output has decreased some, patient had 2 L in the liquid ostomy is stool output in the last 24 hours, he is on Lomotil when necessary. No abdominal pain. no nausea or vomiting no nausea or vomiting. The secretions out of the tracheostomy tube have decreased. Patient has been nothing by mouth, she would like to have a swallow evaluation to be evaluated for oral feedings. Today's chest x-ray has been reviewed showing left lower lobe infiltrate and/or pleural effusion, and improving aeration in the right lower lobe. Today's labs have been reviewed, showing white blood cell count of 12.4, hemoglobin of 9.3, electrolytes within normal limits, renal profile shows slight improvement in creatinine, down to 1.6 today. The patient is seen today 10/13/2020 in follow-up in the intensive care unit. He is currently sitting up in a recliner at the bedside. Awake and alert in no acute distress. He is maintaining good O2 saturations in the 90s on 28% trach collar. He is receiving lactated Ringer's at 75 ML's per hour. He is currently on amiodarone drip at 0.5 mg/m. He is being nourished with vital AF at 90 ML's per hour which is goal with 125 ML free water flushes every 3 hours. He still has significant amount of output and his ileostomy. 1.8 L in the past 24 hours. He's been initiated on Questran and octreotide. Chest x-ray is showing improving left lower lobe infiltrate with small effusion. Sputum was positive for Staphylococcus aureus, Klebsiella pneumoniae. He remains on Zosyn. He is status post 1 unit of packed red blood cells this admission. Current hemoglobin 8.8. Platelets 257. INR 1.4. White count 16.2. Sodium 137. Potassium 4.3. Creatinine 1.65. He is currently in sinus rhythm. He's been initiated on Lovenox 80 mg subcu every 12 hours per cardiology. The plan is to switch back to oral amiodarone. The patient is seen today 10/14/2020 and follow-up in the intensive care unit. He is currently sitting up in a chair at the bedside. Awake and alert in no acute distress. Continues to maintain good O2 saturations in the 90s on 28% t eleanor collar. He does remain on amiodarone drip at 0.5 mg/m. Currently in sinus rhythm. Lactated Ringer's at 20 ML's per hour. Being nourished with vital AF 90 ML's per hour which is goal. Chest x-ray today reveals chronic branch changes with a small left pleural effusion and bibasilar atelectas is/infiltrates. No significant change compared to previous. He is status post 1 unit of packed red blood cells this admission. Current hemoglobin 8.6. INR 1.4. White count 15.3. Sodium 136. Potassium 4.1. Creatinine 1.58. Remains on bronchodilators, Zosyn. Continued on octreotide and Questran with approximately 150 ML's of liquid out of the ileostomy per hour. Yesterday's modified barium swallow revealed evidence of aspiration. Recommended alternative means of nutrition. Continue PEG tube feedings. The patient is seen today 10/15/2020 in follow-up in the intensive care unit. He sitting up in a recliner at the bedside. Awake and alert in no acute distress. Continued on 28% FiO2 via trach collar. Maintaining O2 saturations in the 90s. He is continued on cefepime and bronchodilators. Chest x-ray reveals chronic parenchymal changes with small left greater than right pleural effusions and bibasilar atelectasis/infiltrate. He remains on amiodarone at 0.5 mg/m. No other IV fluids. He is still having high output of the ileostomy 150 ML's per hour. Continued on Questran and Sandostatin without much improvement. White count 16.0. Hemoglobin 8.5. Sodium 136. Potassium 4.2. Creatinine 1.43. Glucose 138. Albumin 2.6. He remains on Vital AF 1.2 at 90 ML's per parag r. On 10/16/2020 the patient is being seen in follow-up in the intensive care unit. His weight is gradually going up and is up to 79 kg. He is stool output is also dropped. He was producing up to 2.7 L of stool output and for yesterday he produced one 1.6 L. He does have an ileostomy with possibly a short gut and he is still receiving enteral feeding via his PEG tube for nutritional support and the patient is currently on vital high protein. He is on Questran, Lomotil and octreotide which has helped somewhat with his stool output. The patient remains on amiodarone 0.5 mg per minute regarding his chronic atrial fibrillation. Switching this patient oral medications via PEG tube has caused tachycardia for that reason data coordinator opted to keep amiodarone drip. He is hemodynamically stable. Repeat chest x-ray from today shows only small bilateral pleural effusion. His creatinine is at 1.49. Hemoglobin is today at 8.2 with a white cell count of 14.6. His serum albumin is at 2.5 with a total protein of 5.5. His last swallow evaluation was done on 10/13/2020 and he failed the swallow evaluation. He remains on IV cefepime. In terms of anticoagulation, the patient remains on Lovenox 80 mg subcu every 12 hours. Concern about his absorption on oral medication for that reason the patient was given a combination of amiodarone and subcutaneous Lovenox. On 10/17/2020 I'm seeing Francisco for a follow-up. Is able to sit up on a chair, comfortable hemodynamically stable. Remains in atrial fibrillation. The active issue continues to be a high output from the ileostomy. The patient is receiving vital high protein at the rate of 90 mL an hour and output is so high and the patient has put out approximately 2.7 L of output from his ileostomy amount mainly yellowish/dark greenish material consistent with liquid the stool/feeding material.. We are still dealing with a high output, malabsorption situation and the patient remains on a combination of Questran, Lomotil and octreotide which has not helped a whole lot in terms of his stool output. Stool for C. diff has been negative. Antibiotic coverage is cefepime and Flagyl was also added by infectious disease. He remains on amiodarone drip at 0.5 mg per minute regarding his atrial fibrillation. He is on Lovenox for long-term anticoagulation. His tracheostomy tube in place and the patient has a Shiley tracheostomy tube and is able to speak around the tube and he does have rest or secretions which are being suctioned out every 4-6 hours. He is afebrile. Blood work is essentially stable with a hemoglobin of 7.5 and a white cell count of 15. His BUN is a 54 with a creatinine of 1.49 and his sodium is at 135. No other significant events. He is weak. He is regaining some of his strength back. He does have a good grasp using his hands. His legs remain weak. The patient is awake and oriented 3 and he has no specific complaints. Is sitting up on a recliner. On , patient is awake and alert on a recliner. No change in his condition. Is gradually getting stronger. Output from the ileostomy remains to be considerably higher in the order of 1.6 L over the past of hours. He is still on the same regimen of Questran, Lomotil and octreotide. He has no respiratory distress. He is on a trach collar. Stool for C. diff has been negative. He remains on a combination of cefepime and Flagyl. Renal function from today is stable with a BUN of 55 and a creatinine of 1.5. His serum al bumin was at 2.5 which was consistently stable over the past several days. No signs of any fluid overload. No third spacing. Active site is clean. Ostomy site is viable. No abdominal distention. His cardiac rhythm is sinus. He is on amiodarone 400 mg by mouth twice a day is also on metoprolol at a dose of 25 mg by mouth 3 times a day and the patient is also on Lovenox 80 mg subcu twice a day. On 10/19/2020, the patient is laying down comfortably in bed. No issues yesterday and no issues overnight. Output from his ileostomy has been 750 mL overnight. He is currently on vital AF rate of 90 mL an hour. No abdominal distention. Active site is dry clean and intact. Ileostomy site is viable and is producing high output. His renal function stable with a creatinine of 1.6. White cell count is at 1.2 which is also stable. The patient's hemoglobin today is at 6.7 without any obvious bleeding source and the patient will be given a unit of packed RBC. The pro-calcitonin is at 0.68 and the serum albumin is at 2.5. He remains on the same regimen of Questran, Lomotil and octreotide. Surgical wound sites of been dry clean and intact. The patient has some respiratory secretions and repeat sputum culture has been Sandimmune was the patient remains on IV cefepime. He is on a 28% trach collar and a chest x-ray showing some atelectatic changes and infiltrates in the lung bases bilaterally. He is also on Flagyl and this was added by infectious disease in regards to his high output ileostomy. Stool for C. diff has been negative. He is awake and alert and communicating. His cardiac rhythm is sinus and the patient is on amiodarone 400 mg by mouth twice a day and metoprolol 25 mg by mouth 3 times a day and he remains on therapeutic doses of Lovenox 80 mg subcu every 12 hours. 10/20/2020 I'm seeing Mr. Tinoco for a follow-up. He is gradually getting stronger specially in his upper extremity is regaining some of his strength back. The active issue for now use the high output ileostomy and at the same time he is having pain in his back where he has a stage IV decubitus ulcer formed during the prolonged hospital stay. He also has a patient to smaller ulcer which is around 1 cm in his right heel and this is obviously a pressure ulcer. He is resting comfortably. He has a tracheostomy with a tagged 28% trach collar and he is not having any significant respiratory distress. Secretions aren't scanned for now. Abdominal wound is healing with secondary intention there is no signs of infection and the patient has a functional ileostomy. He has developed a small hematoma in the left lower quadrant at a site of a Lovenox injection. Otherwise, no other significant events over the past 24 hours. His cardiac rhythm is sinus for now. Received a chest x-ray from today. Echocardiogram was done on 10/19/2020 and it showed an ejection fraction of 50-55% and right ventricle was moderately enlarged. The PA pressure was low at 20. No other significant abnormalities was noted. There was a small pericardial effusion the patient is receiving enteral feeding with vital AF at the rate of 90 mL an hour. Rest of the medications are essentially unchanged. It is receiving wound care to his decub ulcer and his Objective - Vital Signs Vital signs: Vital Signs Temp 97.6 F 10/20/20 04:00 Pulse 64 10/20/20 05:00 Resp 20 10/20/20 05:00 BP 113/67 10/20/20 05:00 Pulse Ox 95 10/20/20 05:24 Intake & Output 10/19/20 10/19/20 10/20/20 06:59 18:59 06:59 Intake Total 690 2290 710 Output Total 1480 2200 850 Balance -790 90 -140 Weight 76.2 kg 76.2 kg Intake: IV 600 500 500 Cefepime 2 gm In Sodium 100 Chloride 0.9% 100 ml @ 25 mls/hr IVPB Q12HR [facility] Rx #:[id number] Lactated Ringers 1,000 ml 600 400 500 @ 50 mls/hr IV .Q20H [facility] Rx#:[id number] Tube Feeding 90 1080 180 Blood Product 620 Rc As-1 Unit 310 [id number] Rc As-1 Unit 310 [id number] Other 90 30 Output: Urine 700 650 250 Stool 780 1550 600 Other: Voiding Method Urinal Urinal Urinal # Voids 0 0 0 - Exam GENERAL EXAM: Alert, very pleasant, 80-year-old male patient on the 28% trach collar, comfortable in no apparent distress. HEAD: Normocephalic/atraumatic. EYES: Normal reaction of pupils, equal size. Conjunctiva pink, sclera white. NOSE: Clear with pink turbinates. THROAT: No erythema or exudates. NECK: Midline tracheostomy in place. No masses, no JVD, no thyroid enlargement, no adenopathy. CHEST: No chest wall deformity. Symmetrical expansion. LUNGS: Equal air entry with crackles in the left base. CVS: Regular rate and rhythm, normal S1 and S2, no gallops, no murmurs, no rubs ABDOMEN: Soft, nontender. No hepatosplenomegaly, normal bowel sounds, no guarding or rigidity. PEG tube exit site clean and dry. Midabdominal incision covered with dressing, is healing by secondary intention, sutures are in place, bed is 100% granulated wound bed. Right upper quadrant ileostomy in place connected to a Villafana drainage bag patient is having liquid yellow stool output EXTREMITIES: No clubbing, no edema, no cyanosis, 2+ pulses and upper and lower extremities. She has developed a 1 cm right heel stage II ulcer and there is no active drainage at the bases here for now. MUSCULOSKELETAL: Muscle strength and tone normal. SPINE: No scoliosis or deformity SKIN: No rashes, the patient has a stage IV pressure ulcer on his sacrum. CENTRAL NERVOUS SYSTEM: Alert and oriented -3. No focal deficits, tone is normal in all 4 extremities. PSYCHIATRIC: Alert and oriented -3. Appropriate affect. Intact judgment and insight. - Labs CBC & Chem 7: 10/20/20 04:04 10/20/20 04:04 Labs: Abnormal Lab Results - Last 24 Hours (Table) 10/19/20 10/19/20 10/19/20 Range/Units 07:16 12:31 17:23 WBC (3.8-10.6) k/uL RBC (4.30-5.90) m/uL Hgb (13.0-17.5) gm/dL Hct (39.0-53.0) % RDW (11.5-15.5) % Neutrophils # (1.3-7.7) k/uL Lymphocytes # (1.0-4.8) k/uL BUN (9-20) mg/dL Creatinine (0.66-1.25) mg/dL Glucose (74-99) mg/dL POC Glucose (mg/dL) 152 H 118 H (75-99) mg/dL Crossmatch See Detail 10/19/20 10/19/20 10/20/20 Range/Units 19:07 23:42 04:04 WBC 17.2 H 13.2 H (3.8-10.6) k/uL RBC 3.44 L 3.27 L (4.30-5.90) m/uL Hgb 10.1 L D 9.4 L (13.0-17.5) gm/dL Hct 30.3 L 29.6 L (39.0-53.0) % RDW 18.2 H 18.3 H (11.5-15.5) % Neutrophils # 15.0 H 11.2 H (1.3-7.7) k/uL Lymphocytes # 0.8 L 0.9 L (1.0-4.8) k/uL BUN (9-20) mg/dL Creatinine (0.66-1.25) mg/dL Glucose (74-99) mg/dL POC Glucose (mg/dL) 154 H (75-99) mg/dL Crossmatch 10/20/20 10/20/20 Range/Units 04:04 05:20 WBC (3.8-10.6) k/uL RBC (4.30-5.90) m/uL Hgb (13.0-17.5) gm/dL Hct (39.0-53.0) % RDW (11.5-15.5) % Neutrophils # (1.3-7.7) k/uL Lymphocytes # (1.0-4.8) k/uL BUN 62 H (9-20) mg/dL Creatinine 1.48 H (0.66-1.25) mg/dL Glucose 137 H (74-99) mg/dL POC Glucose (mg/dL) 153 H (75-99) mg/dL Crossmatch Microbiology - Last 24 Hours (Table) 10/18/20 14:47 Urine Culture - Final Urine,Voided 10/18/20 09:08 Blood Culture - Preliminary Blood No Growth after 24 hours 10/18/20 20:35 Gram Stain - Preliminary Sputum Sputum Culture - Preliminary Assessment and Plan Plan: 1 Bilateral lower lobe pneumonia with sepsis. The patient's chest x-ray shows interval improvement in the bilateral pleural effusions. The patient continues to have respiratory secretions. His previous cultures have shown a combination of Klebsiella and MSSA. The patient has been on IV cefepime since 09/13/2020. The Flagyl was also added by infectious disease. The chest x-ray from today shows small bilateral pleural effusions and small infiltrates in lung bases. There is elevation of the lungs bilaterally. Tracheostomy tube is in a good location. The patient is currently on 28% trach collar. Secretions are scant and the patient has some limited atelectatic changes and small effusion the lung bases bilaterally. 2 Acute on chronic hypoxic respiratory failure secondary to pneumonia and underlying COPD, currently on a 28% trach collar and the patient required tracheostomy following a prolonged intubation mechanical ventilation post cardiac surgery. 3 Bilateral lower lobe pneumonia, secondary to MSSA, and Klebsiella pneumonia (cultured in the sputum) 4 Sepsis secondary to pneumonia, currently off pressors 5 Acute on chronic kidney injury secondary to sepsis, , improving, current creatinine 1.48 and his renal function is been stable over the past few days and the patient has probably an underlying chronic kidney disease at this point in time. 6 Moderate-severe COPD. 7 History of triple-vessel coronary artery disease, bypass surgery on 07/18/2020 with multiple postoperative complications 8 History of tracheostomy mostly because of failure to wean. The patient has a #8 Shiley tracheostomy tube in place 9 Benign essential hypertension. 10 Type 2 diabetes. The patient is receiving subcutaneous insulin based on the skin every 6 hours 11 Dyslipidemia. 12 Chronic atrial fibrillation, on amiodarone and on anticoagulation therapy with Lovenox and he is also on oral amiodarone and oral metoprolol. Cardiac rhythm is sinus for some morning. Currently is in a sinus rhythm 13 History of hypothyroidism. 14 History of ileostomy on 08/02/2020. 15 Chronic anemia 16 generalized motor weakness and debility seconds above-mentioned comorbidities 17 Large volume diarrhea, out of the ileostomy, C. diff has been ruled out and initiated on octreotide and Questran and Lomotil he is on vital high AF at the rate of 90 mL an hour 18 acute on top of chronic anemia, will receive 2 unit of packed RBC and the patient's hemoglobin today is at 9.4 19 stage IV sacral pressure ulcer currently dressed with silver alginate and pressure dressing 20 stage II pressure ulcer on his right heel 21 small abdominal wall hematoma the site of Lovenox injection Plan: Continue cefepime and Flagyl Repeat sputum sample is negative and the patient's oxygen patient has remained stableContinues with high output via the ileostomy Continued on octreotide and Questran Transfused with a total of 2 units of packed RBC hemoglobin stable at 9.4 Pulmonary toileting and frequent suctioning lactated Ringer's at 50 MLS per hour of the free water flushes through his PEG tube amiodarone 400 mg twice a day in addition to Lopressor 25 mg 3 times a day and continue the Lovenox shots for now, the patient is in sinus rhythm is continue the subcutaneous Lovenox and switch this patient on Eliquis 5 mg by mouth twice a day Wound care with many honey and OptiForm through the sacral and regular dressing to his right heel and will relieve some of the pressure by positioning Tracheostomy care and frequent suctioning Physical therapy We'll continue to monitor possibly transfer mild the ICU today We will continue to follow and make further recommendations based on his clinical status
[2020-10-20] MEDS: BUDESONIDE 1 MG/2 ML NEBU INHALATION SCH ×2 (08:01→19:10)
[2020-10-20] MEDS: IPRATROPIUM-ALBUTEROL 3 ML NEB INHALATION SCH ×4 (08:01→19:10)
--- NOTE | 2020-10-20 09:19 | P.PN ---
Subjective HPI: This is a pleasant 80-year-old male past medical history significant for coronary artery disease status post CABG July 2020, complicated po stoperative course with multiple abdominal surgeries, intubations and eventually underwent tracheostomy and PEG tube placement. He been discharged to [facility] however presented back to the hospital 08/01/2021 secondary to shortness breath. There has been some concern about whether patient is absorbing all of his medications as he does have extensive output from his ostomy. Therefore he was placed on amiodarone as well as subcutaneous Lovenox. Patient is seen and examined this morning at 0750 sitting in chair, no acute distress. He is not able to talk over his trach however denies any chest pain or pressure. He admits to some discomfort of his buttocks and back from sitting for prolonged periods of time. He remains in normal sinus rhythm currently. He is receiving enteral feeding via his PEG tube for nutritional support. 10/18/2020: Patient seen and examined. Patient denies any chest pain or pressure, shortness breath appears similar to prior. He did have some right lower extremity pain overnight however did not take any medications for it. He believes this was related to over doing his exercises. He was transitioned over to oral amiodarone as his ostomy output has been decreasing. Remains in normal sinus rhythm 10/19/2020 Patient seen and examined. Patient states he feels similar to yesterday. He does admit to vague short episodes of 2-3 seconds chest pain however does not feel like prior angina. Denies much change in his shortness breath. No other complaints. He remains in sinus rhythm on the amiodarone 400 mg twice a day. Remains on antibiotics. 10/20/20 Patient seen and examined. Patient remains in normal sinus rhythm. Denies any change in his shortness breath and overall feels somewhat better today. Still has occasional pain in his bottom from prolonged sitting. We did repeat an echo as he has not had one since his bypass to monitor for any complications that could be inhibiting his recovery. Ejection fraction 50-55% without significant valvular disease. PHYSICAL EXAMINATION CONSTITUTIONAL: No apparent distress, chronically ill-appearing, tracheostomy and PEG tube. HEENT: Head is normocephalic. Pupils are equal, round. Sclerae anicteric. Mucous membranes of the mouth are moist. No JVD. No carotid bruit. CHEST EXAMINATION: Lungs diminished bilaterally No chest wall tenderness is noted on palpation or with deep breathing. HEART EXAMINATION: Regular rate and rhythm. S1, S2 heard. No murmurs, gallops or rub. ABDOMEN: Soft, nontender. Positive bowel sounds. Ileostomy draining liquid yellow/brown stool SKIN: Coccyx pressure ulcer, right heel pressure ulcer EXTREMITIES: 2+ peripheral pulses, no lower extremity edema and no calf tenderne ss. NEUROLOGIC EXAMINATION: Patient is awake, alert and oriented x3. ASSESSMENT 1. Paroxysmal atrial fibrillation, currently sinus rhythm 2. Bilateral lower lobe pneumonia 3. Acute on chronic respiratory failure 4. Acute kidney injury 5. COPD 6. CAD with triple-vessel disease status post bypass 07/18/2020 7. Anemia 8. Hypertension 9. Large volume of diarrhea, questionable absorption of some of his medications. PLAN Patient appears to be tolerating the amiodarone 400 mg twice a day dosing and is in normal sinus rhythm. Continue with amiodarone 400 mg twice a day and then transition to 200 mg twice a day 10/24/2020. Continue anticoagulation with Eliquis 5mg bid. Echo was repeated which shows normal left ventricular ejection fraction without significant valvular disease. Do not suspect cardiac etiology of patient's current respiratory status. No further recommendations from a cardiology standpoint. Please call with any questions. Objective - Vital Signs Vital signs: Vital Signs Temp 97.6 F 10/20/20 04:00 Pulse 77 10/20/20 08:20 Resp 20 10/20/20 05:00 BP 113/67 10/20/20 05:00 Pulse Ox 97 10/20/20 06:00 Intake & Output 10/19/20 10/20/20 10/20/20 18:59 06:59 18:59 Intake Total 2290 760 50 Output Total 2200 1450 0 Balance 90 -690 50 Weight 76.2 kg Intake: IV 500 550 50 Cefepime 2 gm In Sodium 100 Chloride 0.9% 100 ml @ 25 mls/hr IVPB Q12HR [facility] Rx #:[id number] Lactated Ringers 1,000 ml 400 550 50 @ 50 mls/hr IV .Q20H [facility] Rx#:[id number] Tube Feeding 1080 180 Blood Product 620 Rc As-1 Unit 310 [id number] Rc As-1 Unit 310 [id number] Other 90 30 Output: Urine 650 500 0 Stool 1550 950 Other: Voiding Method Urinal Urinal # Voids 0 1 0 - Labs CBC & Chem 7: 10/20/20 04:04 10/20/20 04:04 Labs: Abnormal Lab Results - Last 24 Hours (Table) 10/19/20 10/19/20 10/19/20 Range/Units 07:16 12:31 17:23 WBC (3.8-10.6) k/uL RBC (4.30-5.90) m/uL Hgb (13.0-17.5) gm/dL Hct (39.0-53.0) % RDW (11.5-15.5) % Neutrophils # (1.3-7.7) k/uL Lymphocytes # (1.0-4.8) k/uL BUN (9-20) mg/dL Creatinine (0.66-1.25) mg/dL Glucose (74-99) mg/dL POC Glucose (mg/dL) 152 H 118 H (75-99) mg/dL Crossmatch See Detail 10/19/20 10/19/20 10/20/20 Range/Units 19:07 23:42 04:04 WBC 17.2 H 13.2 H (3.8-10.6) k/uL RBC 3.44 L 3.27 L (4.30-5.90) m/uL Hgb 10.1 L D 9.4 L (13.0-17.5) gm/dL Hct 30.3 L 29.6 L (39.0-53.0) % RDW 18.2 H 18.3 H (11.5-15.5) % Neutrophils # 15.0 H 11.2 H (1.3-7.7) k/uL Lymphocytes # 0.8 L 0.9 L (1.0-4.8) k/uL BUN (9-20) mg/dL Creatinine (0.66-1.25) mg/dL Glucose (74-99) mg/dL POC Glucose (mg/dL) 154 H (75-99) mg/dL Crossmatch 10/20/20 10/20/20 Range/Units 04:04 05:20 WBC (3.8-10.6) k/uL RBC (4.30-5.90) m/uL Hgb (13.0-17.5) gm/dL Hct (39.0-53.0) % RDW (11.5-15.5) % Neutrophils # (1.3-7.7) k/uL Lymphocytes # (1.0-4.8) k/uL BUN 62 H (9-20) mg/dL Creatinine 1.48 H (0.66-1.25) mg/dL Glucose 137 H (74-99) mg/dL POC Glucose (mg/dL) 153 H (75-99) mg/dL Crossmatch Microbiology - Last 24 Hours (Table) 10/18/20 14:47 Urine Culture - Final Urine,Voided 10/18/20 09:08 Blood Culture - Preliminary Blood No Growth after 24 hours 10/18/20 20:35 Gram Stain - Preliminary Sputum Sputum Culture - Preliminary
[2020-10-20] MEDS: CEFEPIME 2 GM in SODIUM CHLORIDE 0.9% 100 ML IVPB SCH ×2 (09:41→21:19)
[2020-10-20] MEDS: METOPROLOL TARTRATE 25 MG TAB PO SCH ×3 (09:42→21:18)
[2020-10-20] MEDS: metroNIDAZOLE 500 MG TAB PO SCH ×3 (09:42→21:18)
[2020-10-20] MEDS: TAMSULOSIN 0.4 MG CAP.ER.24H PO SCH (09:42)
[2020-10-20] MEDS: ASPIRIN 81 MG PO SCH (09:42)
[2020-10-20] MEDS: AMIODARONE 200 MG TAB PO SCH ×2 (09:42→21:18)
[2020-10-20] MEDS: APIXABAN 5 MG TAB PO SCH ×2 (09:42→21:19)
[2020-10-20] MEDS: CHOLESTYRAMINE (WITH SUGAR) 4 GM PACKET PO SCH ×2 (09:43→17:05)
--- NOTE | 2020-10-20 10:13 | P.PN ---
Subjective Patient is seen in follow for acute kidney injury. Renal function stable. Has been voiding. Denies chest pain or shortness of breath. He is receiving tube feeding. Continues to have high output from the ileostomy. Working with speech therapy daily. Not tolerating oral intake at this time. Hemodynamically stable. Vital signs are stable. General: The patient appeared well nourished and normally developed. HEENT: Tracheostomy noted. LUNGS: Breath sounds decreased. HEART: Rate and Rhythm are regular. ABDOMEN: Soft, no distention noted. Ileostomy noted. EXTREMITITES: No edema. Objective - Vital Signs Vital signs: Vital Signs Temp 98.0 F 10/20/20 08:00 Pulse 77 10/20/20 08:20 Resp 24 10/20/20 08:00 BP 113/67 10/20/20 08:00 Pulse Ox 95 10/20/20 08:00 Intake & Output 10/19/20 10/20/20 10/20/20 18:59 06:59 18:59 Intake Total 2290 760 370 Output Total 2200 1450 700 Balance 90 -690 -330 Weight 76.2 kg Intake: IV 500 550 250 Cefepime 2 gm In Sodium 100 100 Chloride 0.9% 100 ml @ 25 mls/hr IVPB Q12HR [facility]ADE Rx #:[id number] Lactated Ringers 1,000 ml 400 550 150 @ 50 mls/hr IV .Q20H [facility] Rx#:[id number] Tube Feeding 1080 180 90 Blood Product 620 Rc As-1 Unit 310 [id number] Rc As-1 Unit 310 [id number] Other 90 30 30 Output: Urine 650 500 0 Stool 1550 950 700 Other: Voiding Method Urinal Urinal # Voids 0 1 0 - Labs CBC & Chem 7: 10/20/20 04:04 10/20/20 04:04 Labs: Abnormal Lab Results - Last 24 Hours (Table) 10/19/20 10/19/20 10/19/20 Range/Units 07:16 12:31 17:23 WBC (3.8-10.6) k/uL RBC (4.30-5.90) m/uL Hgb (13.0-17.5) gm/dL Hct (39.0-53.0) % RDW (11.5-15.5) % Neutrophils # (1.3-7.7) k/uL Lymphocytes # (1.0-4.8) k/uL BUN (9-20) mg/dL Creatinine (0.66-1.25) mg/dL Glucose (74-99) mg/dL POC Glucose (mg/dL) 152 H 118 H (75-99) mg/dL Crossmatch See Detail 10/19/20 10/19/20 10/20/20 Range/Units 19:07 23:42 04:04 WBC 17.2 H 13.2 H (3.8-10.6) k/uL RBC 3.44 L 3.27 L (4.30-5.90) m/uL Hgb 10.1 L D 9.4 L (13.0-17.5) gm/dL Hct 30.3 L 29.6 L (39.0-53.0) % RDW 18.2 H 18.3 H (11.5-15.5) % Neutrophils # 15.0 H 11.2 H (1.3-7.7) k/uL Lymphocytes # 0.8 L 0.9 L (1.0-4.8) k/uL BUN (9-20) mg/dL Creatinine (0.66-1.25) mg/dL Glucose (74-99) mg/dL POC Glucose (mg/dL) 154 H (75-99) mg/dL Crossmatch 10/20/20 10/20/20 Range/Units 04:04 05:20 WBC (3.8-10.6) k/uL RBC (4.30-5.90) m/uL Hgb (13.0-17.5) gm/dL Hct (39.0-53.0) % RDW (11.5-15.5) % Neutrophils # (1.3-7.7) k/uL Lymphocytes # (1.0-4.8) k/uL BUN 62 H (9-20) mg/dL Creatinine 1.48 H (0.66-1.25) mg/dL Glucose 137 H (74-99) mg/dL POC Glucose (mg/dL) 153 H (75-99) mg/dL Crossmatch Microbiology - Last 24 Hours (Table) 10/18/20 14:47 Urine Culture - Final Urine,Voided 10/18/20 09:08 Blood Culture - Preliminary Blood No Growth after 24 hours 10/18/20 20:35 Gram Stain - Preliminary Sputum Sputum Culture - Preliminary Assessment and Plan Plan: Assessment: 1. Acute kidney injury secondary to ATN secondary to hypotension and hemodynamic instability. Renal function improved from admission. Creatinine stable at 1.48 today. No hydronephrosis noted on kidney ultrasound. 2. Chronic kidney disease stage III with baseline creatinine 1.2-1.5 secondary to nephrosclerosis. 3. A. fib with RVR. Maintained on amiodarone and metoprolol. 4. Hypernatremia secondary to lack of oral water intake. Resolved. 5. Failed swallow eval maintained on tube feeding. 6. Diabetes mellitus. 7. Anemia of chronic kidney disease. Maintained on Aranesp. Status post IV iron and blood transfusion this admission. Hemoglobin 9.4 today. No active bleeding. 8. 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 Currently has ileostomy. 9. Sepsis secondary to pneumonia, on antibiotics. Plan: Maintain tube feeding. Continue to monitor renal function and urine output. Avoid nephrotoxins. No changes from nephrology standpoint.
--- NOTE | 2020-10-20 11:29 | P.PN ---
Subjective Progress Note Date: 10/20/20 CHIEF COMPLAINT: Respiratory distress HISTORY OF PRESENT ILLNESS: Patient seen and examined with Dr. Dempsey. Patient is being followed in regards to his abdominal wound at incision site. Patient remains in the ICU. He is sitting up in recliner. He denies any abdominal pain. He does report feeling gas movement in his stomach. Patient is still having high ileostomy output. The color has changed from yellow to brown output through his ileostomy. This possibly could be related to the Sandostati n. He remains on Questran and Lomotil and Sandostatin to help slow ileostomy output. He does likely have short gut syndrome. He failed his modified barium swallow it did show evidence of aspiration. Patient is afebrile. Trach collaring 100%. WBC 13.2 hemoglobin 9.4. He did receive 2 units of blood for hemoglobin of 6.7 yesterday. Hemoglobin did go up to 10.1 on repeat draw and is now 9.4 creatinine 1.48 PHYSICAL EXAM: VITAL SIGNS: Reviewed. GENERAL: Well-developed in no acute distress. HEENT: No sclera icterus. Extraocular movements grossly intact. Moist buccal mucosa. Head is atraumatic, normocephalic. ABDOMEN: Soft. Nondistended. Nontender. Dressing clean dry and intact. Patient has a brownish liquidy stool coming through the ileostomy. Hematoma noted on the left abdomen NEUROLOGIC: Alert and oriented. Cranial nerves II through XII grossly intact. ASSESSMENT: 1. Abdominal wound at surgical incision site. 2. High ileostomy output 3. History of ischemic small bowel with evidence of pneumatosis status post small bowel resection on 07/24/2020. 4. History of intraperitoneal hemorrhage and small bowel ischemia status post exploratory laparotomy, washout of peritoneal cavity and ileostomy with small bowel resection on 08/02/2020 5. 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 Acute hypoxic respiratory failure secondary to pneumonia 7. Sepsis secondary to pneumonia 8. Acute kidney injury 9. chronic Anemia: With known chronic kidney disease and iron deficiency. He did require blood transfusion and IV Iron during this admission PLAN: -Recommend ileostomy reversal when patient is medically stable -Continue wound care with Aquacel dressing -Continue Sandostatin, Lomotil and Questran to help with high-volume ileostomy output -Continue supportive care -Continue ICU management -Continue antibiotics per ID Physician Child Protective Services Specialist note has been reviewed by physician. Signing provider agrees with the documented findings, assessment, and plan of care. Objective - Vital Signs Vital signs: Vital Signs Temp 98.0 F 10/20/20 08:00 Pulse 86 10/20/20 10:00 Resp 26 H 10/20/20 10:00 BP 113/67 10/20/20 08:00 Pulse Ox 95 10/20/20 08:00 Intake & Output 10/19/20 10/20/20 10/20/20 18:59 06:59 18:59 Intake Total 2290 760 510 Output Total 2200 1450 700 Balance 90 -690 -190 Weight 76.2 kg Intake: IV 500 550 300 Cefepime 2 gm In Sodium 100 100 Chloride 0.9% 100 ml @ 25 mls/hr IVPB Q12HR [facility] Rx #:[id number] Lactated Ringers 1,000 ml 400 550 200 @ 50 mls/hr IV .Q20H [facility] Rx#:[id number] Tube Feeding 1080 180 180 Blood Product 620 Rc As-1 Unit 310 [id number] Rc As-1 Unit 310 [id number] Other 90 30 30 Output: Urine 650 500 0 Stool 1550 950 700 Other: Voiding Method Urinal Urinal # Voids 0 1 0 - Labs CBC & Chem 7: 10/20/20 04:04 10/20/20 04:04 Labs: Abnormal Lab Results - Last 24 Hours (Table) 10/19/20 10/19/20 10/19/20 Range/Units 07:16 12:31 17:23 WBC (3.8-10.6) k/uL RBC (4.30-5.90) m/uL Hgb (13.0-17.5) gm/dL Hct (39.0-53.0) % RDW (11.5-15.5) % Neutrophils # (1.3-7.7) k/uL Lymphocytes # (1.0-4.8) k/uL BUN (9-20) mg/dL Creatinine (0.66-1.25) mg/dL Glucose (74-99) mg/dL POC Glucose (mg/dL) 152 H 118 H (75-99) mg/dL Crossmatch See Detail 10/19/20 10/19/20 10/20/20 Range/Units 19:07 23:42 04:04 WBC 17.2 H 13.2 H (3.8-10.6) k/uL RBC 3.44 L 3.27 L (4.30-5.90) m/uL Hgb 10.1 L D 9.4 L (13.0-17.5) gm/dL Hct 30.3 L 29.6 L (39.0-53.0) % RDW 18.2 H 18.3 H (11.5-15.5) % Neutrophils # 15.0 H 11.2 H (1.3-7.7) k/uL Lymphocytes # 0.8 L 0.9 L (1.0-4.8) k/uL BUN (9-20) mg/dL Creatinine (0.66-1.25) mg/dL Glucose (74-99) mg/dL POC Glucose (mg/dL) 154 H (75-99) mg/dL Crossmatch 10/20/20 10/20/20 Range/Units 04:04 05:20 WBC (3.8-10.6) k/uL RBC (4.30-5.90) m/uL Hgb (13.0-17.5) gm/dL Hct (39.0-53.0) % RDW (11.5-15.5) % Neutrophils # (1.3-7.7) k/uL Lymphocytes # (1.0-4.8) k/uL BUN 62 H (9-20) mg/dL Creatinine 1.48 H (0.66-1.25) mg/dL Glucose 137 H (74-99) mg/dL POC Glucose (mg/dL) 153 H (75-99) mg/dL Crossmatch Microbiology - Last 24 Hours (Table) 10/18/20 09:08 Blood Culture - Preliminary Blood No Growth after 48 hours 10/18/20 14:47 Urine Culture - Final Urine,Voided 10/18/20 20:35 Gram Stain - Preliminary Sputum Sputum Culture - Preliminary
[2020-10-20 12:24] LABS: Glucose,Whole Blood 142 mg/dL (75-99)
[2020-10-20] MEDS: ACETAMINOPHEN TAB 325 MG TAB PO PRN ×2 (12:31→21:20)
[2020-10-20 17:01] LABS: Glucose,Whole Blood 132 mg/dL (75-99)
--- NOTE | 2020-10-20 17:34 | PN ---
PROGRESS NOTE DATE OF SERVICE: 10/20/2020 REASON FOR FOLLOWUP: Pneumonia. INTERVAL HISTORY: The patient is currently afebrile. The patient is breathing more comfortably. Denies having any chest pain. Occasional cough. No abdominal pain. No chest pain. No output in his ileostomy. PHYSICAL EXAMINATION: Blood pressure 124/79, pulse of 80, temperature 98. General description is a middle-aged male up in the chair in no distress. Respiratory system: Unlabored breathing. Decreased breath sounds in the bases. No wheeze. Heart S1-S2 regular rate and rhythm. Abdomen soft, no tenderness. LABORATORY DATA: Hemoglobin 11.4. BUN of 22, creatinine 1.48. DIAGNOSTIC IMPRESSION/PLAN: Patient with a pneumonia. Sputum positive for MSSA Klebsiella. Currently covered with Cefepime and Flagyl. Culture positive for aspiration etiology. White count showing a downward trend. Continue supportive care. MMODL / IJN: [id number] /
[2020-10-20] MEDS: MELATONIN 3 MG TABLET PO PRN (21:18)
[2020-10-20] MEDS: ATORVASTATIN 40 MG TAB PEG/G-TUBE SCH (21:19)
[2020-10-20] MEDS: QUEtiapine 25 MG TAB PO SCH (21:19)
[2020-10-20] MEDS: FAMOTIDINE 20 MG TAB PO SCH (21:30)
--- NOTE | 2020-10-20 23:09 | P.PN ---
Progress Note - Text Progress Note Date: 10/20/20 Interval history: This is a pleasant 80 years old male with past medical history of coronary art fuad disease, COPD, diabetes mellitus, hyperlipidemia, hypertension, hypothyroidism, coronary artery disease status post cardiac cath and stent placement. He recently underwent double coronary artery bypass grafting for his triple-vessel coronary artery disease. He was in the hospital from 07/18/20- 08/25/2020 pt has tracheostomhy and PEG tube , Information were obtained with the help of at bedside, he presents with confusion, and a lot of secretion Why he states that after been discharged from acute and he went to [facility] aren't states therefore one month and 5 days and then he was discharged a few days ago to fpc at [facility] on Friday, however over the weekend he has more congestion, he has weak cough and needed frequent suctioning, patient was able to talk weekly his little confused but he can't communicate through gesture, he denies pain but he is tachypneic He has tracheostomy, PEG tube and try to colostomy. Admitted with-hypotension secondary to severe sepsis secondary to pneumonia, aspiration pneumonia, acute hypoxic respiratory failure, acute kidney injury secondary to ATN, elevated sodium, increased lactic acid, elevated troponin felt to be from tachycardia. Recent history of intraperitoneal hemorrhage status post laboratory with washout and ileostomy on 08/02/2020. Tracheostomy. C. diff ruled out. Recurrent A. fib Today-ICU: Awake. Tracheal secretions. On trach shield. 2 feeding at 90 mL an hour. Left abdominal wall hematoma at Lovenox site Review of systems: Patient unable to talk Active Medications Acetaminophen (Acetaminophen Tab 325 Mg Tab) 650 mg PO Q6HR PRN PRN Reason: Fever and/ or Pain Last Admin: 10/20/20 21:20 Dose: 650 mg Documented by: Albuterol/Ipratropium (Ipratropium-Albuterol 3 Ml Neb) 3 ml INHALATION RT-QID WADE Last Admin: 10/20/20 19:10 Dose: 3 ml Documented by: Albuterol/Ipratropium (Ipratropium-Albuterol 3 Ml Neb) 3 ml INHALATION RT-Q2H PRN PRN Reason: Shortness Of Breath Or Wheezing Last Admin: 10/03/20 21:27 Dose: 3 ml Documented by: Amiodarone HCl (Amiodarone 200 Mg Tab) 400 mg PO BID [facility] Last Admin: 10/20/20 21:18 Dose: 400 mg Documented by: Apixaban (Apixaban 5 Mg Tab) 5 mg PO BID [facility] Last Admin: 10/20/20 21:19 Dose: 5 mg Documented by: Aspirin (Aspirin 81 Mg) 81 mg PO DAILY [facility] Last Admin: 10/20/20 09:42 Dose: 81 mg Documented by: Atorvastatin Calcium (Atorvastatin 40 Mg Tab) 40 mg PEG/G-TUBE HS@2000 [facility] Last Admin: 10/20/20 21:19 Dose: 40 mg Documented by: Budesonide (Budesonide 1 Mg/2 Ml Nebu) 1 mg INHALATION RT-BID [facility] Last Admin: 10/20/20 19:10 Dose: 1 mg Documented by: Cholestyramine Resin (Cholestyramine (With Sugar) 4 Gm Packet) 4 gm PO BID@1000,1800 [facility] Last Admin: 10/20/20 17:05 Dose: 4 gm Documented by: Darbepoetin Alex (Darbepoetin Alex 40 Mcg/0.4 Ml Syringe) 40 mcg SQ Q7D [facility] Last Admin: 10/17/20 09:48 Dose: 40 mcg Documented by: Diphenoxylate HCl/Atropine (Diphenox-Atrop 2.5-0.025 Mg 1 Each Tab) 1 each PO Q6HR [facility] Last Admin: 10/20/20 17:03 Dose: 1 each Documented by: Famotidine (Famotidine 20 Mg Tab) 20 mg PO HS [facility] Last Admin: 10/19/20 22:06 Dose: 20 mg Documented by: Lactated Ringer's (Lactated Ringers) 1,000 mls @ 50 mls/hr IV .Q20H [facility] Last Admin: 10/20/20 21:20 Dose: 50 mls/hr Documented by: Cefepime HCl 2 gm/ Sodium (Chloride) 100 mls @ 25 mls/hr IVPB Q12HR [facility] Last Admin: 10/20/20 21:19 Dose: 25 mls/hr Documented by: Insulin Aspart (Insulin Aspart (Novolog) 100 Unit/Ml Vial) 0 unit SQ Q6H [facility]; Protocol Last Admin: 10/20/20 17:05 Dose: Not Given Documented by: Levothyroxine Sodium (Levothyroxine 50 Mcg Tab) 50 mcg PEG/G-TUBE DAILY@0600 [facility] Last Admin: 10/20/20 05:32 Dose: 50 mcg Documented by: Melatonin (Melatonin 3 Mg Tablet) 3 mg PO HS PRN PRN Reason: Insomnia Last Admin: 10/20/20 21:18 Dose: 3 mg Documented by: Metoprolol Tartrate (Metoprolol Tartrate 25 Mg Tab) 25 mg PO TID [facility] Last Admin: 10/20/20 21:18 Dose: 25 mg Documented by: Metronidazole (Metronidazole 500 Mg Tab) 500 mg PO TID [facility] Last Admin: 10/20/20 21:18 Dose: 500 mg Documented by: Midodrine (Midodrine 5 Mg Tab) 10 mg PO Q8HR [facility] Last Admin: 10/20/20 17:03 Dose: 10 mg Documented by: Miscellaneous Information (Potassium Replacement Protocol 1 Each Misc) 1 each MISCELLANE DAILY PRN; Protocol PRN Reason: Per Protocol Naloxone HCl (Naloxone 0.4 Mg/Ml 1 Ml Vial) 0.2 mg IV Q2M PRN PRN Reason: Opioid Reversal Octreotide Acetate (Octreotide 100 Mcg/Ml Inj) 100 mcg SQ Q8HR [facility] Last Admin: 10/20/20 17:04 Dose: 100 mcg Documented by: Ondansetron HCl (Ondansetron 4 Mg/2 Ml Vial) 4 mg IVP Q8HR PRN PRN Reason: Nausea And Vomiting Last Admin: 10/11/20 03:52 Dose: 4 mg Documented by: Quetiapine Fumarate (Quetiapine 25 Mg Tab) 25 mg PO HS [facility] Last Admin: 10/20/20 21:19 Dose: 25 mg Documented by: Tamsulosin HCl (Tamsulosin 0.4 Mg Cap.Er.24h) 0.4 mg PO -BRKFST [facility] Last Admin: 10/20/20 09:42 Dose: 0.4 mg Documented by: On examination: VITAL SIGNS: 97.9, 80, 28, 142/91, 95% on 28% trach shield GENERAL APPEARANCE: Laying in bed, awake, tired HEENT:Trach collar with shield EYES: Pupils equal. Conjunctiva normal. NECK: JVD not raised. Mass not palpable. RESPIRATORY: Respiratory effort increased Lungs decreased breath sounds CARDIOVASCULAR: First and second sounds normal. No edema. ABDOMEN: Soft. Liver and spleen not palpable. Ileostomy . Left abdominal hematoma PSYCHIATRY: Alert and oriented x3. Mood and affect tired INVESTIGATIONS, reviewed in the clinical context: October 20: White count 13.2 hemoglobin 9.4 platelets 206 potassium 4 creatinine 1.48 White count 7.1 hemoglobin 8.7 platelets 256 potassium 3.8 bicarbonate 20 bun 33 creatinine 3.17 Sputum culture-positive for Staphylococcus aureus MSSA, Klebsiella Pneumoniae Previous labs: White count 16.6 hemoglobin 9.9 platelets 584 bun 100 creatinine 3.18 Coronavirus PCR-not detected Renal ultrasound-normal bilateral renal ultrasound Assessment and plan: -Hypotensive shock -better. remains off norepinephrine IV , on midodrine- -Abdominal wound at surgical incision site, followed by general surgery with local dressing -History of ischemic small bowel with evidence of pneumatosis status post small bowel resection on 07/24/2020 -Ileostomy for intraperitoneal hemorrhage and small bowel ischemia status post exploratory laboratory or short of periportal cavity on 08/02/2020 -Coronary artery disease with bypass in July 2020, and Lopressor. Aspirin -Acute hypoxic respiratory failure secondary to pneumonia, continue with oxygen supplementation, currently with the trach collar, 28% -Anemia secondary to chronic kidney disease , follow H&H -Acute kidney injury secondary to ATN secondary to hypotension and hemodynamic instability - Creatinine 1.48 -Chronic kidney disease stage III the baseline creatinine of 1.2-1.5 secondary to nephrosclerosis -Paroxysmal atrial fibrillation with rapid ventricular rate on amiodarone by mouth, Lopressor, converted to sinus rhythm. Patient has been in and out of rapid A. fib. -Hypernatremia secondary to decreased oral water intake. 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 Patient is on eliquis, IV cefepime, Questran, Lomotil, lactated Ringer's at 50 mL an hour. Flagyl and subcu Sandostatin
[2020-10-21 00:04] LABS: Glucose,Whole Blood 124 mg/dL (75-99)
[2020-10-21] MEDS: INSULIN ASPART (NovoLOG) 100 UNIT/ML VIAL SQ SCH ×4 (00:05→17:42)
[2020-10-21] MEDS: LEVOTHYROXINE 50 MCG TAB PEG/G-TUBE SCH (06:09)
[2020-10-21] MEDS: DIPHENOX-ATROP 2.5-0.025 MG 1 EACH TAB PO SCH ×3 (06:09→17:31)
[2020-10-21 06:30] LABS: Glucose,Whole Blood 174 mg/dL (75-99)
--- NOTE | 2020-10-21 08:07 | P.PN ---
Subjective Progress Note Date: 10/21/20 Acute on chronic hypoxic respiratory failure secondary to left lower lobe pneumonia and sepsis This is a 80-year-old white male familiar to my service, in July 2020, patient underwent elective coronary artery bypass grafting. He had a very complicated postoperative course, patient required multiple abdominal surgeries, multiple intubations, extubations, and the intubations, patient was a failure to wean, and he had multiple abdominal surgeries during his stay. Patient underwent tracheostomy, PEG tube placement, and we were able to transfer the patient to an extended care facility. He was at the extended care facility until about a week ago, his tracheostomy was capped, and he was transferred to [facility] in [place]. Patient has been noticing increased cough, increased shortness of breath, and significant purulent secretions from the tracheostomy tube when uncapped. O2 saturation was dipping down into the 50s and in the ER he had a saturation of 86% on 15 L high flow nasal cannula. Patient was also noted to have leukocytosis, hemoglobin was low, his troponin was slightly elevated, blood pressure was noted to be marginally low, patient was admitted initially to the cardiac floor, however supposedly he was noted to have blood pressure in the 70s systolic. Patient did receive multiple fluid boluses in the ER over 3 L were given, and we were notified about the patient on the floor having low blood pressure, I recommended transferred to the ICU planning to start the patient on norepinephrine. However over the last 12 hours in the ICU, his blood pressure has been stable patient did not require placement on any pressors. His beta blockers had been on hold because of low blood pressure, and he is maintained on amiodarone. His pro-calcitonin level was noted to be 2.60. And his chest x-ray showed left lower lobe atelectasis, suspect left lower lobe pneumonia. And he had small pleural effusions noted more so than right. Going back to his previous hospital admission, patient did have left lower lobe pneumonia and he did have left pleural effusion requiring thoracentesis once or twice. Cultures previously from the sputum were positive for Pseudomonas fluorescence/putida, sensitive to Zosyn and Levaquin and meropenem. Also sensitive to cefepime. Considering the patient's presentation with hypotension, shortness of breath, cough, abnormal chest x-ray, hypoxia, and considering his recent clinical history, we were asked to see him on consultation Patient was reevaluated today on 10/04/2020, patient remains in the ICU, he is on trach collar a 55%, patient went into atrial fibrillation with RVR yesterday, and he went on amiodarone at 1 mg/m, he also received 1 unit of packed RBCs for hemoglobin of 6.7, patient converted to sinus rhythm. Remains in sinus rhythm, patient is receiving tube feeds/Nepro at 65/65. He is also receiving free water. Chest x-ray is showing minimal improvement in the left lower lobe consolidation, clinically the patient is feeling better, he is empirically on antibiotics for healthcare acquired pneumonia/Zosyn. Previous sputum cultures were positive for Pseudomonas, hence his Zosyn was chosen as the drug of choice. CBC today showed WBC 7.2 hemoglobin 6.7, hence a unit of blood was given. Electrolytes showed low sodium but improving today is 148 from 150 to yesterday. BUN is 108 creatinine 3.4 to about the same as yesterday. Reevaluated today on 10/05/2020, patient remains in the ICU, remains on 55% trach collar. Off norepinephrine, IV fluids at KVO, tolerating enteral feeding via PEG tube, patient continues to have significant amount of tracheal secretions, he is now on Zosyn and vancomycin, as well as Zyvox. His cultures from the sputum are showing MSSA, hence we will discontinue vancomycin, keep him on Zosyn, and infectious disease to address his Zyvox. Patient may not even req uire Zyvox considering the culture is positive for MSSA. Chest x-ray is showing bilateral pleural effusions/small, renal functioning is slightly improved over the last 24 hours. Patient was switched to oral amiodarone, and he seems to be doing quite well, in sinus rhythm. Reevaluated today on 10/06/2020, patient remains in the ICU, remains on trach collar at 28%, sputum came back positive for Klebsiella and MSSA. Patient is on Zosyn and Zyvox. Remains on a small dose of norepinephrine at 0.01 mcg/kg/m, remains on enteral feeding/Nepro at 65 ML per hour, also receiving Questran. Patient continues to have significant output from his ileostomy. Patient is feeling better overall compared to how he felt on presentation. CBC today is relatively normal WBC count is 7.1 hemoglobin is 8.7, electrolytes are normal BUN is 93 creatinine is 3.17, improving over the last couple of days. Blood cultures remain negative. Again his sputum cultures are positive for MSSA and Klebsiella pneumonia. Reevaluated today on 10/07/2020, patient remains in the ICU, remains on trach collar at 28%, receiving antibiotics for his Klebsiella and MSSA pneumonia. Patient is only on Zosyn, and his Zyvox was discontinued since it was initially started by infectious disease for possible MRSA. Patient is requiring intermittently small doses of norepinephrine, clinically however the patient is much better compared to how he felt when he came in. He is in no distress, this morning he is off norepinephrine, but he didn't require norepinephrine last night, hence I will not transfer the patient out of the ICU yet. Chest x-ray continues to show by basilar atelectasis, possible left lower lobe consolidation which is chronic. Secretions from the tracheostomy are less and less. Renal profile is improving, creatinine is down to 2.9. CBC is normal. Electrolytes are normal. On 10/08/2020 the patient is being seen in follow-up in the intensive unit. His, comfortable and currently is on a trach collar with an FiO2 of 28%. The chest x-ray shows small bilateral pleural effusions and there is adequate expansion of both lungs and a orotracheal tube is in a good location. Note that he had MSSA and Klebsiella in his sputum and patient is currently on IV antibiotics and he is receiving IV Zosyn. Patient continues to have copious amount of secretions through his tracheostomy tube and the patient has a #8 Shiley tracheostomy tube in place and he is requiring suctioning every 2 hours at least. He still has a lot of rhonchi He is currently off pressors. He is in normal sinus rhythm. He has also PEG tube for enteral feeding and nutritional support. PEG tube is in place and the patient is on Nepro at the rate of 75 mL an hour. He continues to have output through his ileostomy bag. The patient has significant amount of output through his ileostomy was in the order of every 12 hours. No abdominal distention. No signs of any respiratory distress. The creatinine is improving and is currently down to 2.5 and the patient's hemoglobin is at 8.4. No fever. No other issues overnight. Villafana cath is also in place. He is able to communicate. However he is still profoundly weak/in lower extremities. He is able to raise his arms against gravity. On 10/09/2020 patient seen in follow-up in the intensive care unit. Patient is awake and alert, is following commands, moving all 4 extremities, no signs of any respiratory distress, he is breathing comfortably, on 28% trach collar. His pulse ox is 98%. Still having some secretions from his tracheostomy, related he is on Zosyn for antibiotic coverage. Remains on nebulized bronchodilators, hemodynamically patient has been stable. No requiring any vasopressor support for last 48 hours. No acute events overnight. His sputum cultures were positive for MSSA and Klebsiella pneumonia. Today's labs have been reviewed, normal white count at 8.5, hemoglobin is 9.0, sodium is 137, potassium is 3.7, chloride is 110, B1 is 67, creatinine is 2.18. Patient has been nothing by mouth and has been receiving nutrition in the form of Nepro at 65 with a goal of 65. Patient has had significant diarrhea, liquid yellow output from his il eostomy. No complaints of chest pain. He is in sinus mechanism with a controlled rate. Chest x-ray shows basilar infiltrates and atelectasis with small effusions. On 10/10/2020 patient seen in follow-up in the intensive care unit. He is awake and alert, oriented 3, his calm and cooperative, he denies any acute distress, he still has significant amount of secretions that are being suctioned from the tracheostomy tube, he remains on 20% trach collar. He remains on antibiotics, his sputum cultures were positive for MSSA and Klebsiella pneumonia, he is on Zosyn, he has had no fever or chills. Lung sounds reveal minimal rhonchi, less congested and wheezy on today's exam compared a few days ago. Patient is tolerating tube feedings, he remains strict nothing by mouth, he is on Nepro at a rate of 65 ML per hour with a goal of 65 with 125 ML free water flushes every 3 hours. Abdomen is soft, ileostomy is still producing copious amount of liquid yellow diarrhea, which will be sent for C. diff. There has been a total of 2.5 L in stool output in the last 24 hours. Today's labs have been reviewed, white blood cell count is 8.9, hemoglobin is 8.9, CO2 is 18, sodium is 138, potassium is 3.9, chloride is 110, renal profile is improving despite the diarrhea, with BUN of 63, creatinine is 1.94. Patient is working with physical therapy and yesterday he apparently was up in the chair with assistance, tolerated activity well. On 10/11/2020 patient seen in follow-up in intensive care unit, she remains on 28% trach collar, the pulse ox of 97%, vital signs have been stable, his been afebrile, he did have a run of A. fib with RVR this morning and was restarted on amiodarone drip and was given 150 mg bolus of amiodarone. He is currently back in sinus mechanism with a controlled rate, receiving hydration with LR at 75 ML per hour, he continues to have large volume diarrhea out of his ileostomy, he had to 3.3 L in stool output in last 24 hours, C. diff was negative. tube feedings have been switched to vital AF currently running at 75 ML per hour, patient is getting free water flushes of 125 ML every 3 hours. Yesterday we placed him on lactated Ringer's at rate of 75 ML per hour, he is receiving or sodium bicarbonate tablets, his bicarbonate concentration at today's labs has improved and is up to 23. The renal profile slightly improved. Continues on Zosyn for MSSA and Klebsiella pneumonia in sputum cultures, blood cultures have been negative, patient has been afebrile, blood pressure stable, the patient continues on midodrine. Patient is awake and alert, following commands, responding appropriately, appears tired on today's exam. Denies any acute distress, his been working with physical therapy, he stood at the bedside, he is too weak to walk. Abdomen is soft, mid abdominal incision is covered with a dressing. On 10/12/2020 patient seen in follow-up in the intensive care unit. Patient is up in the recliner, breathing comfortably, she is on 20% trach collar, lung sounds are less congested and rhonchorous on today's exam. He is awake and oriented 3, denies any distress, he is currently on lactated Ringer's at a rate of 75 ML per hour, no recurrence of A. fib RVR overnight, his amiodarone is infusing at 0.5 mg/m and he will be transitioned to oral amiodarone today per cardiology, he remained in sinus rhythm. Vital signs are stable. He is on tube feedings of vital AF a rate of 90 with a goal of 90 with 125 ML free water flushes every 3 hours. His diarrhea output has decreased some, patient had 2 L in the liquid ostomy is stool output in the last 24 hours, he is on Lomotil when necessary. No abdominal pain. no nausea or vomiting no nausea or vomiting. The secretions out of the tracheostomy tube have decreased. Patient has been nothing by mouth, she would like to have a swallow evaluation to be evaluated for oral feedings. Today's chest x-ray has been reviewed showing left lower lobe infiltrate and/or pleural effusion, and improving aeration in the right lower lobe. Today's labs have been reviewed, showing white blood cell count of 12.4, hemoglobin of 9.3, electrolytes within normal limits, renal profile shows slight improvement in creatinine, down to 1.6 today. The patient is seen today 10/13/2020 in follow-up in the intensive care unit. He is currently sitting up in a recliner at the bedside. Awake and alert in no acute distress. He is maintaining good O2 saturations in the 90s on 28% trach collar. He is receiving lactated Ringer's at 75 ML's per hour. He is currently on amiodarone drip at 0.5 mg/m. He is being nourished with vital AF at 90 ML's per hour which is goal with 125 ML free water flushes every 3 hours. He still has significant amount of output and his ileostomy. 1.8 L in the past 24 hours. He's been initiated on Questran and octreotide. Chest x-ray is showing improving left lower lobe infiltrate with small effusion. Sputum was positive for Staphylococcus aureus, Klebsiella pneumoniae. He remains on Zosyn. He is status post 1 unit of packed red blood cells this admission. Current hemoglobin 8.8. Platelets 257. INR 1.4. White count 16.2. Sodium 137. Potassium 4.3. Creatinine 1.65. He is currently in sinus rhythm. He's been initiated on Lovenox 80 mg subcu every 12 hours per cardiology. The plan is to switch back to oral amiodarone. The patient is seen today 10/14/2020 and follow-up in the intensive care unit. He is currently sitting up in a chair at the bedside. Awake and alert in no acute distress. Continues to maintain good O2 saturations in the 90s on 28% t eleanor collar. He does remain on amiodarone drip at 0.5 mg/m. Currently in sinus rhythm. Lactated Ringer's at 20 ML's per hour. Being nourished with vital AF 90 ML's per hour which is goal. Chest x-ray today reveals chronic branch changes with a small left pleural effusion and bibasilar atelectas is/infiltrates. No significant change compared to previous. He is status post 1 unit of packed red blood cells this admission. Current hemoglobin 8.6. INR 1.4. White count 15.3. Sodium 136. Potassium 4.1. Creatinine 1.58. Remains on bronchodilators, Zosyn. Continued on octreotide and Questran with approximately 150 ML's of liquid out of the ileostomy per hour. Yesterday's modified barium swallow revealed evidence of aspiration. Recommended alternative means of nutrition. Continue PEG tube feedings. The patient is seen today 10/15/2020 in follow-up in the intensive care unit. He sitting up in a recliner at the bedside. Awake and alert in no acute distress. Continued on 28% FiO2 via trach collar. Maintaining O2 saturations in the 90s. He is continued on cefepime and bronchodilators. Chest x-ray reveals chronic parenchymal changes with small left greater than right pleural effusions and bibasilar atelectasis/infiltrate. He remains on amiodarone at 0.5 mg/m. No other IV fluids. He is still having high output of the ileostomy 150 ML's per hour. Continued on Questran and Sandostatin without much improvement. White count 16.0. Hemoglobin 8.5. Sodium 136. Potassium 4.2. Creatinine 1.43. Glucose 138. Albumin 2.6. He remains on Vital AF 1.2 at 90 ML's per parag r. On 10/16/2020 the patient is being seen in follow-up in the intensive care unit. His weight is gradually going up and is up to 79 kg. He is stool output is also dropped. He was producing up to 2.7 L of stool output and for yesterday he produced one 1.6 L. He does have an ileostomy with possibly a short gut and he is still receiving enteral feeding via his PEG tube for nutritional support and the patient is currently on vital high protein. He is on Questran, Lomotil and octreotide which has helped somewhat with his stool output. The patient remains on amiodarone 0.5 mg per minute regarding his chronic atrial fibrillation. 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 He is hemodynamically stable. Repeat chest x-ray from today shows only small bilateral pleural effusion. His creatinine is at 1.49. Hemoglobin is today at 8.2 with a white cell count of 14.6. His serum albumin is at 2.5 with a total protein of 5.5. His last swallow evaluation was done on 10/13/2020 and he failed the swallow evaluation. He remains on IV cefepime. In terms of anticoagulation, the patient remains on Lovenox 80 mg subcu every 12 hours. Concern about his absorption on oral medication for that reason the patient was given a combination of amiodarone and subcutaneous Lovenox. On 10/17/2020 I'm seeing Francisco for a follow-up. Is able to sit up on a chair, comfortable hemodynamically stable. Remains in atrial fibrillation. The active issue continues to be a high output from the ileostomy. The patient is receiving vital high protein at the rate of 90 mL an hour and output is so high and the patient has put out approximately 2.7 L of output from his ileostomy amount mainly yellowish/dark greenish material consistent with liquid the stool/feeding material.. We are still dealing with a high output, malabsorption situation and the patient remains on a combination of Questran, Lomotil and octreotide which has not helped a whole lot in terms of his stool output. Stool for C. diff has been negative. Antibiotic coverage is cefepime and Flagyl was also added by infectious disease. He remains on amiodarone drip at 0.5 mg per minute regarding his atrial fibrillation. He is on Lovenox for long-term anticoagulation. His tracheostomy tube in place and the patient has a Shiley tracheostomy tube and is able to speak around the tube and he does have rest or secretions which are being suctioned out every 4-6 hours. He is afebrile. Blood work is essentially stable with a hemoglobin of 7.5 and a white cell count of 15. His BUN is a 54 with a creatinine of 1.49 and his sodium is at 135. No other significant events. He is weak. He is regaining some of his strength back. He does have a good grasp using his hands. His legs remain weak. The patient is awake and oriented 3 and he has no specific complaints. Is sitting up on a recliner. On , patient is awake and alert on a recliner. No change in his condition. Is gradually getting stronger. Output from the ileostomy remains to be considerably higher in the order of 1.6 L over the past of hours. He is still on the same regimen of Questran, Lomotil and octreotide. He has no respiratory distress. He is on a trach collar. Stool for C. diff has been negative. He remains on a combination of cefepime and Flagyl. Renal function from today is stable with a BUN of 55 and a creatinine of 1.5. His serum al bumin was at 2.5 which was consistently stable over the past several days. No signs of any fluid overload. No third spacing. Active site is clean. Ostomy site is viable. No abdominal distention. His cardiac rhythm is sinus. He is on amiodarone 400 mg by mouth twice a day is also on metoprolol at a dose of 25 mg by mouth 3 times a day and the patient is also on Lovenox 80 mg subcu twice a day. On 10/19/2020, the patient is laying down comfortably in bed. No issues yesterday and no issues overnight. Output from his ileostomy has been 750 mL overnight. He is currently on vital AF rate of 90 mL an hour. No abdominal distention. Active site is dry clean and intact. Ileostomy site is viable and is producing high output. His renal function stable with a creatinine of 1.6. White cell count is at 1.2 which is also stable. The patient's hemoglobin today is at 6.7 without any obvious bleeding source and the patient will be given a unit of packed RBC. The pro-calcitonin is at 0.68 and the serum albumin is at 2.5. He remains on the same regimen of Questran, Lomotil and octreotide. Surgical wound sites of been dry clean and intact. The patient has some respiratory secretions and repeat sputum culture has been Sandimmune was the patient remains on IV cefepime. He is on a 28% trach collar and a chest x-ray showing some atelectatic changes and infiltrates in the lung bases bilaterally. He is also on Flagyl and this was added by infectious disease in regards to his high output ileostomy. Stool for C. diff has been negative. He is awake and alert and communicating. His cardiac rhythm is sinus and the patient is on amiodarone 400 mg by mouth twice a day and metoprolol 25 mg by mouth 3 times a day and he remains on therapeutic doses of Lovenox 80 mg subcu every 12 hours. 10/20/2020 I'm seeing Mr. Tinoco for a follow-up. He is gradually getting stronger specially in his upper extremity is regaining some of his strength back. The active issue for now use the high output ileostomy and at the same time he is having pain in his back where he has a stage IV decubitus ulcer formed during the prolonged hospital stay. He also has a patient to smaller ulcer which is around 1 cm in his right heel and this is obviously a pressure ulcer. He is resting comfortably. He has a tracheostomy with a tagged 28% trach collar and he is not having any significant respiratory distress. Secretions aren't scanned for now. Abdominal wound is healing with secondary intention there is no signs of infection and the patient has a functional ileostomy. He has developed a small hematoma in the left lower quadrant at a site of a Lovenox injection. Otherwise, no other significant events over the past 24 hours. His cardiac rhythm is sinus for now. Received a chest x-ray from today. Echocardiogram was done on 10/19/2020 and it showed an ejection fraction of 50-55% and right ventricle was moderately enlarged. The PA pressure was low at 20. No other significant abnormalities was noted. There was a small pericardial effusion the patient is receiving enteral feeding with vital AF at the rate of 90 mL an hour. Rest of the medications are essentially unchanged. It is receiving wound care to his decub ulcer and his 10/21/2020, Mr. Tinoco is still in the intensive care unit. He is an overflow patient. He is able to transition himself to the recliner back and forth. He needs help to make this activity. He is on 28% tracheostomy trach collar oxygen supplementation. His rest or secretions are thick and he is still requiring suctioning every 4-5 hours. Most recent sputum analysis that was collected on 10/18/2020 was consistent with Radha. The patient's white cell count from yesterday was 13 and last from today are still pending. Meanwhile, the patient remains on IV cefepime as a broad-spectrum antibiotic coverage. He is also on Flagyl and this was added by infectious disease regarding his however I put ileostomy. He is on vital AF at the rate of 90 mL an hour and output in the ileostomy is still considerably high. No major changes condition. He has a stage IV sacral decub ulcer, he has a stage II right heel ulcer, his abdominal wound is healing nicely by secondary intention, he is working with physical therapy, his cardiac rhythm is sinus rhythm and the patient is currently on amiodarone, metoprolol and he was taken off the Lovenox shots and he was given Eliquis 5 mg by mouth twice a day. Abdominal wall hematoma is stable. Objective - Vital Signs Vital signs: Vital Signs Temp 98.1 F 10/21/20 04:10 Pulse 68 10/21/20 04:10 Resp 24 10/21/20 04:10 BP 96/69 10/21/20 04:10 Pulse Ox 94 L 10/21/20 04:10 Intake & Output 10/20/20 10/21/20 10/21/20 18:59 06:59 18:59 Intake Total 1690 870 300 Output Total 2100 500 1800 Balance -410 370 -1500 Weight 76.2 kg 78 kg Intake: IV 700 450 300 Cefepime 2 gm In Sodium 100 100 Chloride 0.9% 100 ml @ 25 mls/hr IVPB Q12HR [facility] Rx #:[id number] Lactated Ringers 1,000 ml 600 350 300 @ 50 mls/hr IV .Q20H [facility] Rx#:[id number] Tube Feeding 900 270 Other 90 150 Output: Urine 600 150 Stool 6728 130 6006 Other: Voiding Method Urinal # Voids 0 - Exam GENERAL EXAM: Alert, very pleasant, 80-year-old male patient on the 28% trach collar, comfortable in no apparent distress. HEAD: Normocephalic/atraumatic. EYES: Normal reaction of pupils, equal size. Conjunctiva pink, sclera white. NOSE: Clear with pink turbinates. THROAT: No erythema or exudates. NECK: Midline tracheostomy in place. No masses, no JVD, no thyroid enlargement, no adenopathy. CHEST: No chest wall deformity. Symmetrical expansion. LUNGS: Equal air entry with crackles in the left base. CVS: Regular rate and rhythm, normal S1 and S2, no gallops, no murmurs, no rubs ABDOMEN: Soft, nontender. No hepatosplenomegaly, normal bowel sounds, no guarding or rigidity. PEG tube exit site clean and dry. Midabdominal incision covered with dressing, is healing by secondary intention, sutures are in place, bed is 100% granulated wound bed. Right upper quadrant ileostomy in place connected to a Villafana drainage bag patient is having liquid yellow stool output EXTREMITIES: No clubbing, no edema, no cyanosis, 2+ pulses and upper and lower extremities. She has developed a 1 cm right heel stage II ulcer and there is no active drainage at the bases here for now. MUSCULOSKELETAL: Muscle strength and tone normal. SPINE: No scoliosis or deformity SKIN: No rashes, the patient has a stage IV pressure ulcer on his sacrum. CENTRAL NERVOUS SYSTEM: Alert and oriented -3. No focal deficits, tone is normal in all 4 extremities. PSYCHIATRIC: Alert and oriented -3. Appropriate affect. Intact judgment and insight. - Labs CBC & Chem 7: 10/20/20 04:04 10/20/20 04:04 Labs: Abnormal Lab Results - Last 24 Hours (Table) 10/20/20 10/20/20 10/21/20 Range/Units 12:22 17:00 00:01 POC Glucose (mg/dL) 142 H 132 H 124 H (75-99) mg/dL 10/21/20 Range/Units 06:29 POC Glucose (mg/dL) 174 H (75-99) mg/dL Microbiology - Last 24 Hours (Table) 10/18/20 20:35 Gram Stain - Preliminary Sputum Sputum Culture - Preliminary Radha albicans 10/18/20 09:08 Blood Culture - Preliminary Blood No Growth after 48 hours Assessment and Plan Plan: 1 Bilateral lower lobe pneumonia with sepsis. The patient's chest x-ray shows interval improvement in the bilateral pleural effusions. The patient continues to have respiratory secretions. His previous cultures have shown a combination of Klebsiella and MSSA. The patient has been on IV cefepime since 09/13/2020. The Flagyl was also added by infectious disease. The chest x-ray from today shows small bilateral pleural effusions and small infiltrates in lung bases. There is elevation of the lungs bilaterally. Tracheostomy tube is in a good location. The patient is currently on 28% trach collar. Secretions are scant and the patient has some limited atelectatic changes and small effusion the lung bases bilaterally.no chest x-ray from today. Overall respiratory status is stable on today's evaluation. No signs of any respiratory distress. The most recent sputum culture came back positive for Radha. 2 Acute on chronic hypoxic respiratory failure secondary to pneumonia and underlying COPD, currently on a 28% trach collar and the patient required tracheostomy following a prolonged intubation mechanical ventilation post c ardiac surgery. 3 Bilateral lower lobe pneumonia, secondary to MSSA, and Klebsiella pneumonia (cultured in the sputum) 4 Sepsis secondary to pneumonia, currently off pressors 5 Acute on chronic kidney injury secondary to sepsis, , improving, current creatinine 1.48 and his renal function is been stable over the past few days and the patient has probably an underlying chronic kidney disease at this point in time. 6 Moderate-severe COPD. 7 History of triple-vessel coronary artery disease, bypass surgery on 07/18/2020 with multiple postoperative complications 8 History of tracheostomy mostly because of failure to wean. The patient has a #8 Shiley tracheostomy tube in place 9 Benign essential hypertension. 10 Type 2 diabetes. The patient is receiving subcutaneous insulin based on the skin every 6 hours 11 Dyslipidemia. 12 Chronic atrial fibrillation, on amiodarone and on anticoagulation therapy with Lovenox and he is also on oral amiodarone and oral metoprolol. Cardiac rhythm is sinus for some morning. Currently is in a sinus rhythm 13 History of hypothyroidism. 14 History of ileostomy on 08/02/2020. 15 Chronic anemia 16 generalized motor weakness and debility seconds above-mentioned comorbidities 17 Large volume diarrhea, out of the ileostomy, C. diff has been ruled out and initiated on octreotide and Questran and Lomotil he is on vital high AF at the rate of 90 mL an hour 18 acute on top of chronic anemia, will receive 2 unit of packed RBC and the patient's hemoglobin today is at 9.4 19 stage IV sacral pressure ulcer currently dressed with silver alginate and pressure dressing 20 stage II pressure ulcer on his right heel 21 small abdominal wall hematoma the site of Lovenox injectionhe is currently off the Lovenox injection and the patient is back to Eliquis. Plan: Continue cefepime and Flagyl I would suggest repeating another swallow evaluation and assess the patient's swallow by speech therapy Awaiting CBC and CMP from today Pulmonary toileting and frequent suctioning lactated Ringer's at 50 cc per hour of the free water flushes through his PEG tube mobility and move him up on a chair Amiodarone 400 mg twice a day in addition to Lopressor 25 mg 3 times a day and continue the Lovenox shots for now, the patient is in sinus rhythm is continue the subcutaneous Lovenox and switch this patient on Eliquis 5 mg by mouth twice a day Wound care with many honey and OptiForm through the sacral and regular dressing to his right heel and will relieve some of the pressure by positioning Tracheostomy care and frequent suctioning Physical therapy We'll continue to monitor We will continue to follow and make further recommendations based on his clinical status
[2020-10-21] MEDS: BUDESONIDE 1 MG/2 ML NEBU INHALATION SCH ×2 (08:45→20:20)
[2020-10-21] MEDS: IPRATROPIUM-ALBUTEROL 3 ML NEB INHALATION SCH ×4 (08:46→20:20)
[2020-10-21 09:32] LABS: Albumin 2.9 g/dL (3.5-5.0); Calcium 9.1 mg/dL (8.4-10.2); Potassium 3.9 mmol/L (3.5-5.1); Total Bilirubin 0.7 mg/dL (0.2-1.3); Total Protein 6.2 g/dL (6.3-8.2)
[2020-10-21 09:38] LABS: Anisocytosis Slight; HCT 32.5 % (39.0-53.0); HGB 10.6 gm/dL (13.0-17.5); Hypochromasia Slight; MCHC 32.6 g/dL (31.0-37.0); Mean Platelet Volume 7.8; Platelet Count 211 k/uL (150-450); Poikilocytosis Slight; RBC 3.54 m/uL (4.30-5.90); RDW 18.2 % (11.5-15.5)
[2020-10-21] MEDS: AMIODARONE 200 MG TAB PO SCH ×2 (10:05→20:52)
[2020-10-21] MEDS: TAMSULOSIN 0.4 MG CAP.ER.24H PO SCH (10:06)
[2020-10-21] MEDS: APIXABAN 5 MG TAB PO SCH ×2 (10:06→20:53)
[2020-10-21] MEDS: OCTREOTIDE 100 MCG/ML INJ SQ SCH ×2 (10:06→17:30)
[2020-10-21] MEDS: MIDODRINE 5 MG TAB PO SCH ×2 (10:06→17:31)
[2020-10-21] MEDS: METOPROLOL TARTRATE 25 MG TAB PO SCH ×3 (10:06→21:36)
[2020-10-21] MEDS: ASPIRIN 81 MG PO SCH (10:06)
[2020-10-21] MEDS: CEFEPIME 2 GM in SODIUM CHLORIDE 0.9% 100 ML IVPB SCH ×2 (10:07→20:52)
[2020-10-21] MEDS: CHOLESTYRAMINE (WITH SUGAR) 4 GM PACKET PO SCH ×2 (10:07→17:30)
[2020-10-21] MEDS: metroNIDAZOLE 500 MG TAB PO SCH ×2 (10:07→17:32)
--- NOTE | 2020-10-21 11:14 | P.PN ---
Progress Note - Text Progress Note Date: 10/21/20 The patient's more awake today. He is still having high output through the ileostomy. On exam vital signs are stable. Abdomen is soft. Wound is clean. Patient will start on thickened liquids today. He does not appear to be have any aspiration with this.
[2020-10-21 11:26] LABS: Lymphocytes # (M) 0.48 k/uL (1.0-4.8); Monocytes # (M) 0.84 k/uL (0-1.0); Neutrophils # (M) 10.68 k/uL (1.3-7.7); Neutrophils % (M) 89 %; Nucleated Red Blood Cells 0 /100 WBC (0-0); Total Cells Counted 100
[2020-10-21 11:37] LABS: Glucose,Whole Blood 151 mg/dL (75-99)
--- NOTE | 2020-10-21 12:00 | P.PN ---
Subjective Progress Note Date: 10/21/20 f/u for CONNOR Objective - Vital Signs Vital signs: Vital Signs Temp 97 F L 10/21/20 08:00 Pulse 77 10/21/20 09:03 Resp 26 H 10/21/20 08:00 BP 113/65 10/21/20 08:00 Pulse Ox 99 10/21/20 08:00 Intake & Output 10/20/20 10/21/20 10/21/20 18:59 06:59 18:59 Intake Total 1690 870 300 Output Total 2100 500 2740 Balance -410 370 -2440 Weight 76.2 kg 78 kg Intake: IV 700 450 300 Cefepime 2 gm In Sodium 100 100 Chloride 0.9% 100 ml @ 25 mls/hr IVPB Q12HR WADE Rx #:[id number] Lactated Ringers 1,000 ml 600 350 300 @ 50 mls/hr IV .Q20H WADE Rx#:[id number] Tube Feeding 900 270 Other 90 150 Output: Urine 600 150 300 Stool 1070 617 8284 Other: Voiding Method Urinal Urinal # Voids 0 - Exam no acute distress s1 s2 herd lungs clear no edema - Labs CBC & Chem 7: 10/21/20 08:27 10/21/20 08:27 Labs: Abnormal Lab Results - Last 24 Hours (Table) 10/20/20 10/20/20 10/21/20 Range/Units 12:22 17:00 00:01 WBC (3.8-10.6) k/uL RBC (4.30-5.90) m/uL Hgb (13.0-17.5) gm/dL Hct (39.0-53.0) % RDW (11.5-15.5) % Neutrophils # (Manual) (1.3-7.7) k/uL Lymphocytes # (Manual) (1.0-4.8) k/uL BUN (9-20) mg/dL Creatinine (0.66-1.25) mg/dL Glucose (74-99) mg/dL POC Glucose (mg/dL) 142 H 132 H 124 H (75-99) mg/dL Total Protein (6.3-8.2) g/dL Albumin (3.5-5.0) g/dL 03/06/21 03/06/21 03/06/21 Range/Units 06:29 08:27 08:27 WBC 12.0 H (3.8-10.6) k/uL RBC 3.54 L (4.30-5.90) m/uL Hgb 10.6 L (13.0-17.5) gm/dL Hct 32.5 L (39.0-53.0) % RDW 18.2 H (11.5-15.5) % Neutrophils # (Manual) 10.68 H (1.3-7.7) k/uL Lymphocytes # (Manual) 0.48 L (1.0-4.8) k/uL BUN 62 H (9-20) mg/dL Creatinine 1.53 H (0.66-1.25) mg/dL Glucose 124 H (74-99) mg/dL POC Glucose (mg/dL) 174 H (75-99) mg/dL Total Protein 6.2 L (6.3-8.2) g/dL Albumin 2.9 L (3.5-5.0) g/dL 10/21/20 Range/Units 11:36 WBC (3.8-10.6) k/uL RBC (4.30-5.90) m/uL Hgb (13.0-17.5) gm/dL Hct (39.0-53.0) % RDW (11.5-15.5) % Neutrophils # (Manual) (1.3-7.7) k/uL Lymphocytes # (Manual) (1.0-4.8) k/uL BUN (9-20) mg/dL Creatinine (0.66-1.25) mg/dL Glucose (74-99) mg/dL POC Glucose (mg/dL) 151 H (75-99) mg/dL Total Protein (6.3-8.2) g/dL Albumin (3.5-5.0) g/dL Microbiology - Last 24 Hours (Table) 10/18/20 09:08 Blood Culture - Preliminary Blood No Growth after 72 hours 10/18/20 20:35 Gram Stain - Final Sputum Sputum Culture - Final Radha albicans Assessment and Plan Assessment: 1. CONNOR secondary to ATN, creatinine stable 2. CKD3 with baseline 1.2-1.5 mg/dl 3. A.fib with rvr 4. anemia with CKD 5. pneumonia on abx Plan: 1. renal function stable. no changes today.
[2020-10-21] MEDS: LACTATED RINGERS 1,000 ML IV SCH (12:59)
[2020-10-21] MEDS: ACETAMINOPHEN TAB 325 MG TAB PO PRN (13:53)
[2020-10-21 17:35] LABS: Glucose,Whole Blood 144 mg/dL (75-99)
[2020-10-21] MEDS: ATORVASTATIN 40 MG TAB PEG/G-TUBE SCH (20:52)
[2020-10-21] MEDS: FAMOTIDINE 20 MG TAB PO SCH (20:52)
[2020-10-21] MEDS: QUEtiapine 25 MG TAB PO SCH (20:53)
--- NOTE | 2020-10-21 22:23 | P.PN ---
Progress Note - Text Progress Note Date: 10/21/20 Interval history: This is a pleasant 80 years old male with past medical history of coronary art fuad disease, COPD, diabetes mellitus, hyperlipidemia, hypertension, hypothyroidism, coronary artery disease status post cardiac cath and stent placement. He recently underwent double coronary artery bypass grafting for his triple-vessel coronary artery disease. He was in the hospital from 07/18/20- 08/25/2020 pt has tracheostomhy and PEG tube , Information were obtained with the help of at bedside, he presents with confusion, and a lot of secretion Why he states that after been discharged from acute and he went to [facility] aren't states therefore one month and 5 days and then he was discharged a few days ago to [facility] on Friday, however over the weekend he has more congestion, he has weak cough and needed frequent suctioning, patient was able to talk weekly his little confused but he can't communicate through gesture, he denies pain but he is tachypneic He has tracheostomy, PEG tube and try to colostomy. Admitted with-hypotension secondary to severe sepsis secondary to pneumonia, aspiration pneumonia, acute hypoxic respiratory failure, acute kidney injury secondary to ATN, elevated sodium, increased lactic acid, elevated troponin felt to be from tachycardia. Recent history of intraperitoneal hemorrhage status post laboratory with washout and ileostomy on 08/02/2020. Tracheostomy. C. diff ruled out. Recurrent A. fib Today-ICU: Awake. Tracheal secretions clear. On trach shield-28%. 2 feeding at 90 mL an hour. Left abdominal wall hematoma at Lovenox site Review of systems: Unable to assess ration able to communicate some Active Medications Acetaminophen (Acetaminophen Tab 325 Mg Tab) 650 mg PO Q6HR PRN PRN Reason: Fever and/ or Pain Last Admin: 10/21/20 13:53 Dose: 650 mg Documented by: Albuterol/Ipratropium (Ipratropium-Albuterol 3 Ml Neb) 3 ml INHALATION RT-QID WADE Last Admin: 10/21/20 20:20 Dose: 3 ml Documented by: Albuterol/Ipratropium (Ipratropium-Albuterol 3 Ml Neb) 3 ml INHALATION RT-Q2H PRN PRN Reason: Shortness Of Breath Or Wheezing Last Admin: 10/03/20 21:27 Dose: 3 ml Documented by: Amiodarone HCl (Amiodarone 200 Mg Tab) 400 mg PO BID [facility] Last Admin: 10/21/20 20:52 Dose: 400 mg Documented by: Apixaban (Apixaban 5 Mg Tab) 5 mg PO BID [facility] Last Admin: 10/21/20 20:53 Dose: 5 mg Documented by: Aspirin (Aspirin 81 Mg) 81 mg PO DAILY [facility] Last Admin: 10/21/20 10:06 Dose: 81 mg Documented by: Atorvastatin Calcium (Atorvastatin 40 Mg Tab) 40 mg PEG/G-TUBE HS@2000 [facility] Last Admin: 10/21/20 20:52 Dose: 40 mg Documented by: Budesonide (Budesonide 1 Mg/2 Ml Nebu) 1 mg INHALATION RT-BID [facility] Last Admin: 10/21/20 20:20 Dose: 1 mg Documented by: Cholestyramine Resin (Cholestyramine (With Sugar) 4 Gm Packet) 4 gm PO BID@1000,1800 [facility] Last Admin: 10/21/20 17:30 Dose: 4 gm Documented by: Darbepoetin Alex (Darbepoetin Alex 40 Mcg/0.4 Ml Syringe) 40 mcg SQ Q7D [facility] Last Admin: 10/17/20 09:48 Dose: 40 mcg Documented by: Diphenoxylate HCl/Atropine (Diphenox-Atrop 2.5-0.025 Mg 1 Each Tab) 1 each PO Q6HR [facility] Last Admin: 10/21/20 17:31 Dose: 1 each Documented by: Famotidine (Famotidine 20 Mg Tab) 20 mg PO HS [facility] Last Admin: 10/21/20 20:52 Dose: 20 mg Documented by: Lactated Ringer's (Lactated Ringers) 1,000 mls @ 50 mls/hr IV .Q20H [facility] Last Admin: 10/21/20 12:59 Dose: 50 mls/hr Documented by: Cefepime HCl 2 gm/ Sodium (Chloride) 100 mls @ 25 mls/hr IVPB Q12HR [facility] Last Admin: 10/21/20 20:52 Dose: 25 mls/hr Documented by: Insulin Aspart (Insulin Aspart (Novolog) 100 Unit/Ml Vial) 0 unit SQ Q6H [facility]; Protocol Last Admin: 10/21/20 17:42 Dose: 1 unit Documented by: Levothyroxine Sodium (Levothyroxine 50 Mcg Tab) 50 mcg PEG/G-TUBE DAILY@0600 [facility] Last Admin: 10/21/20 06:09 Dose: 50 mcg Documented by: Melatonin (Melatonin 3 Mg Tablet) 3 mg PO HS PRN PRN Reason: Insomnia Last Admin: 10/20/20 21:18 Dose: 3 mg Documented by: Metoprolol Tartrate (Metoprolol Tartrate 25 Mg Tab) 25 mg PO TID [facility] Last Admin: 10/21/20 21:36 Dose: 25 mg Documented by: Metronidazole (Metronidazole 500 Mg Tab) 500 mg PO TID [facility] Last Admin: 10/21/20 17:32 Dose: 500 mg Documented by: Midodrine (Midodrine 5 Mg Tab) 10 mg PO Q8HR [facility] Last Admin: 10/21/20 17:31 Dose: 10 mg Documented by: Miscellaneous Information (Potassium Replacement Protocol 1 Each Misc) 1 each MISCELLANE DAILY PRN; Protocol PRN Reason: Per Protocol Naloxone HCl (Naloxone 0.4 Mg/Ml 1 Ml Vial) 0.2 mg IV Q2M PRN PRN Reason: Opioid Reversal Octreotide Acetate (Octreotide 100 Mcg/Ml Inj) 100 mcg SQ Q8HR [facility] Last Admin: 10/21/20 17:30 Dose: 100 mcg Documented by: Ondansetron HCl (Ondansetron 4 Mg/2 Ml Vial) 4 mg IVP Q8HR PRN PRN Reason: Nausea And Vomiting Last Admin: 10/11/20 03:52 Dose: 4 mg Documented by: Quetiapine Fumarate (Quetiapine 25 Mg Tab) 25 mg PO HS [facility] Last Admin: 10/21/20 20:53 Dose: 25 mg Documented by: Tamsulosin HCl (Tamsulosin 0.4 Mg Cap.Er.24h) 0.4 mg PO PC-BRKFST [facility] Last Admin: 10/21/20 10:06 Dose: 0.4 mg Documented by: On examination: VITAL SIGNS: 97.8, 71, 25, trach collar GENERAL APPEARANCE: Laying in bed, awake, tired HEENT:Trach collar with shield EYES: Pupils equal. Conjunctiva normal. NECK: JVD not raised. Mass not palpable. RESPIRATORY: Respiratory effort increased Lungs decreased breath sounds CARDIOVASCULAR: First and second sounds normal. No edema. ABDOMEN: Soft. Liver and spleen not palpable. Ileostomy . Left abdominal hematoma PSYCHIATRY: Alert and oriented x3. Mood and affect tired INVESTIGATIONS, reviewed in the clinical context: October 21: WBC 30.3 October 20: White count 13.2 hemoglobin 9.4 platelets 206 potassium 4 creatinine 1.48 White count 7.1 hemoglobin 8.7 platelets 256 potassium 3.8 bicarbonate 20 bun 33 creatinine 3.17 Sputum culture-positive for Staphylococcus aureus MSSA, Klebsiella Pneumoniae Previous labs: White count 16.6 hemoglobin 9.9 platelets 584 bun 100 creatinine 3.18 Coronavirus PCR-not detected Renal ultrasound-normal bilateral renal ultrasound Assessment and plan: -Hypotensive shock -better. remains off norepinephrine IV , on midodrine- -Abdominal wound at surgical incision site, followed by general surgery with local dressing -History of ischemic small bowel with evidence of pneumatosis status post small bowel resection on 07/24/2020 -Ileostomy for intraperitoneal hemorrhage and small bowel ischemia status post exploratory laboratory or short of periportal cavity on 08/02/2020 -Coronary artery disease with bypass in July 2020, and Lopressor. Aspirin -Acute hypoxic respiratory failure secondary to pneumonia, continue with oxygen supplementation, currently with the trach collar, 28% -Anemia secondary to chronic kidney disease , follow H&H -Acute kidney injury secondary to ATN secondary to hypotension and hemodynamic instability - Creatinine 1.48 -Chronic kidney disease stage III the baseline creatinine of 1.2-1.5 secondary to nephrosclerosis -Paroxysmal atrial fibrillation with rapid ventricular rate on amiodarone by mouth, Lopressor, converted to sinus rhythm. Patient has been in and out of rapid A. fib. -Hypernatremia secondary to decreased oral water intake. 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 Patient is on eliquis, IV cefepime, Questran, Lomotil, lactated Ringer's at 50 mL an hour. Flagyl and subcu Sandostatin
[2020-10-21 23:53] LABS: Glucose,Whole Blood 141 mg/dL (75-99)
[2020-10-22] MEDS: INSULIN ASPART (NovoLOG) 100 UNIT/ML VIAL SQ SCH ×4 (00:13→19:52)
[2020-10-22] MEDS: metroNIDAZOLE 500 MG TAB PO SCH ×4 (00:13→21:29)
[2020-10-22] MEDS: DIPHENOX-ATROP 2.5-0.025 MG 1 EACH TAB PO SCH ×5 (00:13→23:55)
[2020-10-22] MEDS: MIDODRINE 5 MG TAB PO SCH ×4 (00:13→23:55)
[2020-10-22] MEDS: OCTREOTIDE 100 MCG/ML INJ SQ SCH ×3 (00:14→16:54)
[2020-10-22 04:16] LABS: Albumin 2.4 g/dL (3.5-5.0); Calcium 8.6 mg/dL (8.4-10.2); Potassium 3.6 mmol/L (3.5-5.1); Total Bilirubin 0.6 mg/dL (0.2-1.3); Total Protein 5.4 g/dL (6.3-8.2)
[2020-10-22 04:58] LABS: Anisocytosis Slight; Basophils # (A) 0.1 k/uL (0-0.2); Basophils % (A) 1 %; Eosinophils # (A) 0.2 k/uL (0-0.7); Eosinophils % (A) 2 %; HCT 29.8 % (39.0-53.0); HGB 9.5 gm/dL (13.0-17.5); Hypochromasia Slight; Lymphocytes # (A) 1.2 k/uL (1.0-4.8); Lymphocytes % (A) 10 %; MCH 28.8 pg (25.0-35.0); MCHC 31.7 g/dL (31.0-37.0); MCV 90.8 fL (80.0-100.0); Mean Platelet Volume 7.7; Monocytes # (A) 0.8 k/uL (0-1.0); Monocytes % (A) 6 %; Neutrophils # (A) 10.2 k/uL (1.3-7.7); Neutrophils % (A) 80 %; Platelet Count 234 k/uL (150-450); Poikilocytosis Slight; RBC 3.28 m/uL (4.30-5.90); RDW 18.9 % (11.5-15.5); WBC 12.7 k/uL (3.8-10.6)
[2020-10-22 05:56] LABS: Glucose,Whole Blood 176 mg/dL (75-99)
[2020-10-22] MEDS: LEVOTHYROXINE 50 MCG TAB PEG/G-TUBE SCH (06:23)
[2020-10-22] MEDS ORDERED: POTASSIUM BICARBONATE/CIT AC 20 MEQ TABLET.EFF NG-TUBE SCH (07:00)
--- NOTE | 2020-10-22 07:36 | P.PN ---
Subjective Progress Note Date: 10/22/20 Acute on chronic hypoxic respiratory failure secondary to left lower lobe pneumonia and sepsis This is a 80-year-old white male familiar to my service, in July 2020, patient underwent elective coronary artery bypass grafting. He had a very complicated postoperative course, patient required multiple abdominal surgeries, multiple intubations, extubations, and the intubations, patient was a failure to wean, and he had multiple abdominal surgeries during his stay. Patient underwent tracheostomy, PEG tube placement, and we were able to transfer the patient to an extended care facility. He was at the extended care facility until about a week ago, his tracheostomy was capped, and he was transferred to [facility] in [facility]. Patient has been noticing increased cough, increased shortness of breath, and significant purulent secretions from the tracheostomy tube when uncapped. O2 saturation was dipping down into the 50s and in the ER he had a saturation of 86% on 15 L high flow nasal cannula. Patient was also noted to have leukocytosis, hemoglobin was low, his troponin was slightly elevated, blood pressure was noted to be marginally low, patient was admitted initially to the cardiac floor, however supposedly he was noted to have blood pressure in the 70s systolic. Patient did receive multiple fluid boluses in the ER over 3 L were given, and we were notified about the patient on the floor having low blood pressure, I recommended transferred to the ICU planning to start the patient on norepinephrine. However over the last 12 hours in the ICU, his blood pressure has been stable patient did not require placement on any pressors. His beta blockers had been on hold because of low blood pressure, and he is maintained on amiodarone. His pro-calcitonin level was noted to be 2.60. And his chest x-ray showed left lower lobe atelectasis, suspect left lower lobe pneumonia. And he had small pleural effusions noted more so than right. Going back to his previous hospital admission, patient did have left lower lobe pneumonia and he did have left pleural effusion requiring thoracentesis once or twice. Cultures previously from the sputum were positive for Pseudomonas fluorescence/putida, sensitive to Zosyn and Levaquin and meropenem. Also sensitive to cefepime. Considering the patient's presentation with hypotension, shortness of breath, cough, abnormal chest x-ray, hypoxia, and considering his recent clinical history, we were asked to see him on consultation Patient was reevaluated today on 10/04/2020, patient remains in the ICU, he is on trach collar a 55%, patient went into atrial fibrillation with RVR yesterday, and he went on amiodarone at 1 mg/m, he also received 1 unit of packed RBCs for hemoglobin of 6.7, patient converted to sinus rhythm. Remains in sinus rhythm, patient is receiving tube feeds/Nepro at 65/65. He is also receiving free water. Chest x-ray is showing minimal improvement in the left lower lobe consolidation, clinically the patient is feeling better, he is empirically on antibiotics for healthcare acquired pneumonia/Zosyn. Previous sputum cultures were positive for Pseudomonas, hence his Zosyn was chosen as the drug of choice. CBC today showed WBC 7.2 hemoglobin 6.7, hence a unit of blood was given. Electrolytes showed low sodium but improving today is 148 from 150 to yesterday. BUN is 108 creatinine 3.4 to about the same as yesterday. Reevaluated today on 10/05/2020, patient remains in the ICU, remains on 55% trach collar. Off norepinephrine, IV fluids at KVO, tolerating enteral feeding via PEG tube, patient continues to have significant amount of tracheal secretions, he is now on Zosyn and vancomycin, as well as Zyvox. His cultures from the sputum are showing MSSA, hence we will discontinue vancomycin, keep him on Zosyn, and infectious disease to address his Zyvox. Patient may not even req uire Zyvox considering the culture is positive for MSSA. Chest x-ray is showing bilateral pleural effusions/small, renal functioning is slightly improved over the last 24 hours. Patient was switched to oral amiodarone, and he seems to be doing quite well, in sinus rhythm. Reevaluated today on 10/06/2020, patient remains in the ICU, remains on trach collar at 28%, sputum came back positive for Klebsiella and MSSA. Patient is on Zosyn and Zyvox. Remains on a small dose of norepinephrine at 0.01 mcg/kg/m, remains on enteral feeding/Nepro at 65 ML per hour, also receiving Questran. Patient continues to have significant output from his ileostomy. Patient is feeling better overall compared to how he felt on presentation. CBC today is relatively normal WBC count is 7.1 hemoglobin is 8.7, electrolytes are normal BUN is 93 creatinine is 3.17, improving over the last couple of days. Blood cultures remain negative. Again his sputum cultures are positive for MSSA and Klebsiella pneumonia. Reevaluated today on 10/07/2020, patient remains in the ICU, remains on trach collar at 28%, receiving antibiotics for his Klebsiella and MSSA pneumonia. Patient is only on Zosyn, and his Zyvox was discontinued since it was initially started by infectious disease for possible MRSA. Patient is requiring intermittently small doses of norepinephrine, clinically however the patient is much better compared to how he felt when he came in. He is in no distress, this morning he is off norepinephrine, but he didn't require norepinephrine last night, hence I will not transfer the patient out of the ICU yet. Chest x-ray continues to show by basilar atelectasis, possible left lower lobe consolidation which is chronic. Secretions from the tracheostomy are less and less. Renal profile is improving, creatinine is down to 2.9. CBC is normal. Electrolytes are normal. On 10/08/2020 the patient is being seen in follow-up in the intensive unit. His, comfortable and currently is on a trach collar with an FiO2 of 28%. The chest x-ray shows small bilateral pleural effusions and there is adequate expansion of both lungs and a orotracheal tube is in a good location. Note that he had MSSA and Klebsiella in his sputum and patient is currently on IV antibiotics and he is receiving IV Zosyn. Patient continues to have copious amount of secretions through his tracheostomy tube and the patient has a #8 Shiley tracheostomy tube in place and he is requiring suctioning every 2 hours at least. He still has a lot of rhonchi He is currently off pressors. He is in normal sinus rhythm. He has also PEG tube for enteral feeding and nutritional support. PEG tube is in place and the patient is on Nepro at the rate of 75 mL an hour. He continues to have output through his ileostomy bag. The patient has significant amount of output through his ileostomy was in the order of every 12 hours. No abdominal distention. No signs of any respiratory distress. The creatinine is improving and is currently down to 2.5 and the patient's hemoglobin is at 8.4. No fever. No other issues overnight. Villafana cath is also in place. He is able to communicate. However he is still profoundly weak/in lower extremities. He is able to raise his arms against gravity. On 10/09/2020 patient seen in follow-up in the intensive care unit. Patient is awake and alert, is following commands, moving all 4 extremities, no signs of any respiratory distress, he is breathing comfortably, on 28% trach collar. His pulse ox is 98%. Still having some secretions from his tracheostomy, related he is on Zosyn for antibiotic coverage. Remains on nebulized bronchodilators, hemodynamically patient has been stable. No requiring any vasopressor support for last 48 hours. No acute events overnight. His sputum cultures were positive for MSSA and Klebsiella pneumonia. Today's labs have been reviewed, normal white count at 8.5, hemoglobin is 9.0, sodium is 137, potassium is 3.7, chloride is 110, B1 is 67, creatinine is 2.18. Patient has been nothing by mouth and has been receiving nutrition in the form of Nepro at 65 with a goal of 65. Patient has had significant diarrhea, liquid yellow output from his il eostomy. No complaints of chest pain. He is in sinus mechanism with a controlled rate. Chest x-ray shows basilar infiltrates and atelectasis with small effusions. On 10/10/2020 patient seen in follow-up in the intensive care unit. He is awake and alert, oriented 3, his calm and cooperative, he denies any acute distress, he still has significant amount of secretions that are being suctioned from the tracheostomy tube, he remains on 20% trach collar. He remains on antibiotics, his sputum cultures were positive for MSSA and Klebsiella pneumonia, he is on Zosyn, he has had no fever or chills. Lung sounds reveal minimal rhonchi, less congested and wheezy on today's exam compared a few days ago. Patient is tolerating tube feedings, he remains strict nothing by mouth, he is on Nepro at a rate of 65 ML per hour with a goal of 65 with 125 ML free water flushes every 3 hours. Abdomen is soft, ileostomy is still producing copious amount of liquid yellow diarrhea, which will be sent for C. diff. There has been a total of 2.5 L in stool output in the last 24 hours. Today's labs have been reviewed, white blood cell count is 8.9, hemoglobin is 8.9, CO2 is 18, sodium is 138, potassium is 3.9, chloride is 110, renal profile is improving despite the diarrhea, with BUN of 63, creatinine is 1.94. Patient is working with physical therapy and yesterday he apparently was up in the chair with assistance, tolerated activity well. On 10/11/2020 patient seen in follow-up in intensive care unit, she remains on 28% trach collar, the pulse ox of 97%, vital signs have been stable, his been afebrile, he did have a run of A. fib with RVR this morning and was restarted on amiodarone drip and was given 150 mg bolus of amiodarone. He is currently back in sinus mechanism with a controlled rate, receiving hydration with LR at 75 ML per hour, he continues to have large volume diarrhea out of his ileostomy, he had to 3.3 L in stool output in last 24 hours, C. diff was negative. tube feedings have been switched to vital AF currently running at 75 ML per hour, patient is getting free water flushes of 125 ML every 3 hours. Yesterday we placed him on lactated Ringer's at rate of 75 ML per hour, he is receiving or sodium bicarbonate tablets, his bicarbonate concentration at today's labs has improved and is up to 23. The renal profile slightly improved. Continues on Zosyn for MSSA and Klebsiella pneumonia in sputum cultures, blood cultures have been negative, patient has been afebrile, blood pressure stable, the patient continues on midodrine. Patient is awake and alert, following commands, responding appropriately, appears tired on today's exam. Denies any acute distress, his been working with physical therapy, he stood at the bedside, he is too weak to walk. Abdomen is soft, mid abdominal incision is covered with a dressing. On 10/12/2020 patient seen in follow-up in the intensive care unit. Patient is up in the recliner, breathing comfortably, she is on 20% trach collar, lung sounds are less congested and rhonchorous on today's exam. He is awake and oriented 3, denies any distress, he is currently on lactated Ringer's at a rate of 75 ML per hour, no recurrence of A. fib RVR overnight, his amiodarone is infusing at 0.5 mg/m and he will be transitioned to oral amiodarone today per cardiology, he remained in sinus rhythm. Vital signs are stable. He is on tube feedings of vital AF a rate of 90 with a goal of 90 with 125 ML free water flushes every 3 hours. His diarrhea output has decreased some, patient had 2 L in the liquid ostomy is stool output in the last 24 hours, he is on Lomotil when necessary. No abdominal pain. no nausea or vomiting no nausea or vomiting. The secretions out of the tracheostomy tube have decreased. Patient has been nothing by mouth, she would like to have a swallow evaluation to be evaluated for oral feedings. Today's chest x-ray has been reviewed showing left lower lobe infiltrate and/or pleural effusion, and improving aeration in the right lower lobe. Today's labs have been reviewed, showing white blood cell count of 12.4, hemoglobin of 9.3, electrolytes within normal limits, renal profile shows slight improvement in creatinine, down to 1.6 today. The patient is seen today 10/13/2020 in follow-up in the intensive care unit. He is currently sitting up in a recliner at the bedside. Awake and alert in no acute distress. He is maintaining good O2 saturations in the 90s on 28% trach collar. He is receiving lactated Ringer's at 75 ML's per hour. He is currently on amiodarone drip at 0.5 mg/m. He is being nourished with vital AF at 90 ML's per hour which is goal with 125 ML free water flushes every 3 hours. He still has significant amount of output and his ileostomy. 1.8 L in the past 24 hours. He's been initiated on Questran and octreotide. Chest x-ray is showing improving left lower lobe infiltrate with small effusion. Sputum was positive for Staphylococcus aureus, Klebsiella pneumoniae. He remains on Zosyn. He is status post 1 unit of packed red blood cells this admission. Current hemoglobin 8.8. Platelets 257. INR 1.4. White count 16.2. Sodium 137. Potassium 4.3. Creatinine 1.65. He is currently in sinus rhythm. He's been initiated on Lovenox 80 mg subcu every 12 hours per cardiology. The plan is to switch back to oral amiodarone. The patient is seen today 10/14/2020 and follow-up in the intensive care unit. He is currently sitting up in a chair at the bedside. Awake and alert in no acute distress. Continues to maintain good O2 saturations in the 90s on 28% t eleanor collar. He does remain on amiodarone drip at 0.5 mg/m. Currently in sinus rhythm. Lactated Ringer's at 20 ML's per hour. Being nourished with vital AF 90 ML's per hour which is goal. Chest x-ray today reveals chronic branch changes with a small left pleural effusion and bibasilar atelectas is/infiltrates. No significant change compared to previous. He is status post 1 unit of packed red blood cells this admission. Current hemoglobin 8.6. INR 1.4. White count 15.3. Sodium 136. Potassium 4.1. Creatinine 1.58. Remains on bronchodilators, Zosyn. Continued on octreotide and Questran with approximately 150 ML's of liquid out of the ileostomy per hour. Yesterday's modified barium swallow revealed evidence of aspiration. Recommended alternative means of nutrition. Continue PEG tube feedings. The patient is seen today 10/15/2020 in follow-up in the intensive care unit. He sitting up in a recliner at the bedside. Awake and alert in no acute distress. Continued on 28% FiO2 via trach collar. Maintaining O2 saturations in the 90s. He is continued on cefepime and bronchodilators. Chest x-ray reveals chronic parenchymal changes with small left greater than right pleural effusions and bibasilar atelectasis/infiltrate. He remains on amiodarone at 0.5 mg/m. No other IV fluids. He is still having high output of the ileostomy 150 ML's per hour. Continued on Questran and Sandostatin without much improvement. White count 16.0. Hemoglobin 8.5. Sodium 136. Potassium 4.2. Creatinine 1.43. Glucose 138. Albumin 2.6. He remains on Vital AF 1.2 at 90 ML's per parag r. On 10/16/2020 the patient is being seen in follow-up in the intensive care unit. His weight is gradually going up and is up to 79 kg. He is stool output is also dropped. He was producing up to 2.7 L of stool output and for yesterday he produced one 1.6 L. He does have an ileostomy with possibly a short gut and he is still receiving enteral feeding via his PEG tube for nutritional support and the patient is currently on vital high protein. He is on Questran, Lomotil and octreotide which has helped somewhat with his stool output. The patient remains on amiodarone 0.5 mg per minute regarding his chronic atrial fibrillation. Switching this patient oral medications via PEG tube has caused tachycardia for that reason senior abap developer opted to keep amiodarone drip. He is hemodynamically stable. Repeat chest x-ray from today shows only small bilateral pleural effusion. His creatinine is at 1.49. Hemoglobin is today at 8.2 with a white cell count of 14.6. His serum albumin is at 2.5 with a total protein of 5.5. His last swallow evaluation was done on 10/13/2020 and he failed the swallow evaluation. He remains on IV cefepime. In terms of anticoagulation, the patient remains on Lovenox 80 mg subcu every 12 hours. Concern about his absorption on oral medication for that reason the patient was given a combination of amiodarone and subcutaneous Lovenox. On 10/17/2020 I'm seeing Francisco for a follow-up. Is able to sit up on a chair, comfortable hemodynamically stable. Remains in atrial fibrillation. The active issue continues to be a high output from the ileostomy. The patient is receiving vital high protein at the rate of 90 mL an hour and output is so high and the patient has put out approximately 2.7 L of output from his ileostomy amount mainly yellowish/dark greenish material consistent with liquid the stool/feeding material.. We are still dealing with a high output, malabsorption situation and the patient remains on a combination of Questran, Lomotil and octreotide which has not helped a whole lot in terms of his stool output. Stool for C. diff has been negative. Antibiotic coverage is cefepime and Flagyl was also added by infectious disease. He remains on amiodarone drip at 0.5 mg per minute regarding his atrial fibrillation. He is on Lovenox for long-term anticoagulation. His tracheostomy tube in place and the patient has a Shiley tracheostomy tube and is able to speak around the tube and he does have rest or secretions which are being suctioned out every 4-6 hours. He is afebrile. Blood work is essentially stable with a hemoglobin of 7.5 and a white cell count of 15. His BUN is a 54 with a creatinine of 1.49 and his sodium is at 135. No other significant events. He is weak. He is regaining some of his strength back. He does have a good grasp using his hands. His legs remain weak. The patient is awake and oriented 3 and he has no specific complaints. Is sitting up on a recliner. On , patient is awake and alert on a recliner. No change in his condition. Is gradually getting stronger. Output from the ileostomy remains to be considerably higher in the order of 1.6 L over the past of hours. He is still on the same regimen of Questran, Lomotil and octreotide. He has no respiratory distress. He is on a trach collar. Stool for C. diff has been negative. He remains on a combination of cefepime and Flagyl. Renal function from today is stable with a BUN of 55 and a creatinine of 1.5. His serum al bumin was at 2.5 which was consistently stable over the past several days. No signs of any fluid overload. No third spacing. Active site is clean. Ostomy site is viable. No abdominal distention. His cardiac rhythm is sinus. He is on amiodarone 400 mg by mouth twice a day is also on metoprolol at a dose of 25 mg by mouth 3 times a day and the patient is also on Lovenox 80 mg subcu twice a day. On 10/19/2020, the patient is laying down comfortably in bed. No issues yesterday and no issues overnight. Output from his ileostomy has been 750 mL overnight. He is currently on vital AF rate of 90 mL an hour. No abdominal distention. Active site is dry clean and intact. Ileostomy site is viable and is producing high output. His renal function stable with a creatinine of 1.6. White cell count is at 1.2 which is also stable. The patient's hemoglobin today is at 6.7 without any obvious bleeding source and the patient will be given a unit of packed RBC. The pro-calcitonin is at 0.68 and the serum albumin is at 2.5. He remains on the same regimen of Questran, Lomotil and octreotide. Surgical wound sites of been dry clean and intact. The patient has some respiratory secretions and repeat sputum culture has been Sandimmune was the patient remains on IV cefepime. He is on a 28% trach collar and a chest x-ray showing some atelectatic changes and infiltrates in the lung bases bilaterally. He is also on Flagyl and this was added by infectious disease in regards to his high output ileostomy. Stool for C. diff has been negative. He is awake and alert and communicating. His cardiac rhythm is sinus and the patient is on amiodarone 400 mg by mouth twice a day and metoprolol 25 mg by mouth 3 times a day and he remains on therapeutic doses of Lovenox 80 mg subcu every 12 hours. 10/20/2020 I'm seeing Mr. Tinoco for a follow-up. He is gradually getting stronger specially in his upper extremity is regaining some of his strength back. The active issue for now use the high output ileostomy and at the same time he is having pain in his back where he has a stage IV decubitus ulcer formed during the prolonged hospital stay. He also has a patient to smaller ulcer which is around 1 cm in his right heel and this is obviously a pressure ulcer. He is resting comfortably. He has a tracheostomy with a tagged 28% trach collar and he is not having any significant respiratory distress. Secretions aren't scanned for now. Abdominal wound is healing with secondary intention there is no signs of infection and the patient has a functional ileostomy. He has developed a small hematoma in the left lower quadrant at a site of a Lovenox injection. Otherwise, no other significant events over the past 24 hours. His cardiac rhythm is sinus for now. Received a chest x-ray from today. Echocardiogram was done on 10/19/2020 and it showed an ejection fraction of 50-55% and right ventricle was moderately enlarged. The PA pressure was low at 20. No other significant abnormalities was noted. There was a small pericardial effusion the patient is receiving enteral feeding with vital AF at the rate of 90 mL an hour. Rest of the medications are essentially unchanged. It is receiving wound care to his decub ulcer and his 10/21/2020, Mr. Tinoco is still in the intensive care unit. He is an overflow patient. He is able to transition himself to the recliner back and forth. He needs help to make this activity. He is on 28% tracheostomy trach collar oxygen supplementation. His rest or secretions are thick and he is still requiring suctioning every 4-5 hours. Most recent sputum analysis that was collected on 10/18/2020 was consistent with Radha. The patient's white cell count from yesterday was 13 and last from today are still pending. Meanwhile, the patient remains on IV cefepime as a broad-spectrum antibiotic coverage. He is also on Flagyl and this was added by infectious disease regarding his however I put ileostomy. He is on vital AF at the rate of 90 mL an hour and output in the ileostomy is still considerably high. No major changes condition. He has a stage IV sacral decub ulcer, he has a stage II right heel ulcer, his abdominal wound is healing nicely by secondary intention, he is working with physical therapy, his cardiac rhythm is sinus rhythm and the patient is currently on amiodarone, metoprolol and he was taken off the Lovenox shots and he was given Eliquis 5 mg by mouth twice a day. Abdominal wall hematoma is stable. 10/22/2020, the patient was able to tolerate some full liquid diet. We did a bedside swallow evaluation the patient was able to swallow. We will advance his diet today. He remains on a 28% trach collar and he continues to have rest or secretions. No new cultures from his sputum and the last culture was positive for Radha and the patient remains on a combination of IV cefepime and Flagyl. He has a high output ileostomy. He is still on vital AF. He is on Eliquis in addition to metoprolol and amiodarone regarding his atrial fibrillation. His rate is controlled and he is and sinus rhythm for now. Abdominal hematoma is stable. We are still taking care of his stage IV sacral decub ulcer and stage II right ulcer. His abdominal wound is also healing. No fever. Hemoglobin is stable at 9.5. White cell count stable at 12.7. He has adequate strength in his upper extremity. He seems to be getting stronger on a daily basis. Objective - Vital Signs Vital signs: Vital Signs Temp 97.9 F 10/22/20 04:00 Pulse 72 10/22/20 04:00 Resp 23 10/22/20 04:00 BP 103/60 10/22/20 04:00 Pulse Ox 97 10/22/20 04:00 Intake & Output 10/21/20 10/22/20 10/22/20 18:59 06:59 18:59 Intake Total 300 550 Output Total 4540 1500 1700 Balance -4240 -950 -1700 Weight 78.2 kg Intake: IV 300 550 Lactated Ringers 1,000 ml 300 550 @ 50 mls/hr IV .Q20H WADE Rx#:[id number] Output: Urine 600 500 Stool 3940 1000 1700 Other: Voiding Method Urinal Urinal - Exam GENERAL EXAM: Alert, very pleasant, 80-year-old male patient on the 28% trach collar, comfortable in no apparent distress. HEAD: Normocephalic/atraumatic. EYES: Normal reaction of pupils, equal size. Conjunctiva pink, sclera white. NOSE: Clear with pink turbinates. THROAT: No erythema or exudates. NECK: Midline tracheostomy in place. No masses, no JVD, no thyroid enlargement, no adenopathy. CHEST: No chest wall deformity. Symmetrical expansion. LUNGS: Equal air entry with crackles in the left base. CVS: Regular rate and rhythm, normal S1 and S2, no gallops, no murmurs, no rubs ABDOMEN: Soft, nontender. No hepatosplenomegaly, normal bowel sounds, no guarding or rigidity. PEG tube exit site clean and dry. Midabdominal incision covered with dressing, is healing by secondary intention, sutures are in place, bed is 100% granulated wound bed. Right upper quadrant ileostomy in place connected to a Villafana drainage bag patient is having liquid yellow stool output EXTREMITIES: No clubbing, no edema, no cyanosis, 2+ pulses and upper and lower extremities. She has developed a 1 cm right heel stage II ulcer and there is no active drainage at the bases here for now. MUSCULOSKELETAL: Muscle strength and tone normal. SPINE: No scoliosis or deformity SKIN: No rashes, the patient has a stage IV pressure ulcer on his sacrum. CENTRAL NERVOUS SYSTEM: Alert and oriented -3. No focal deficits, tone is normal in all 4 extremities. PSYCHIATRIC: Alert and oriented -3. Appropriate affect. Intact judgment and insight. - Labs CBC & Chem 7: 10/22/20 03:21 10/22/20 03:21 Labs: Abnormal Lab Results - Last 24 Hours (Table) 03/06/21 03/06/21 03/06/21 Range/Units 08:27 08:27 11:36 WBC 12.0 H (3.8-10.6) k/uL RBC 3.54 L (4.30-5.90) m/uL Hgb 10.6 L (13.0-17.5) gm/dL Hct 32.5 L (39.0-53.0) % RDW 18.2 H (11.5-15.5) % Neutrophils # (1.3-7.7) k/uL Neutrophils # (Manual) 10.68 H (1.3-7.7) k/uL Lymphocytes # (Manual) 0.48 L (1.0-4.8) k/uL Sodium (137-145) mmol/L BUN 62 H (9-20) mg/dL Creatinine 1.53 H (0.66-1.25) mg/dL Glucose 124 H (74-99) mg/dL POC Glucose (mg/dL) 151 H (75-99) mg/dL Total Protein 6.2 L (6.3-8.2) g/dL Albumin 2.9 L (3.5-5.0) g/dL 10/21/20 10/21/20 10/22/20 Range/Units 17:34 23:51 03:21 WBC 12.7 H (3.8-10.6) k/uL RBC 3.28 L (4.30-5.90) m/uL Hgb 9.5 L (13.0-17.5) gm/dL Hct 29.8 L (39.0-53.0) % RDW 18.9 H (11.5-15.5) % Neutrophils # 10.2 H (1.3-7.7) k/uL Neutrophils # (Manual) (1.3-7.7) k/uL Lymphocytes # (Manual) (1.0-4.8) k/uL Sodium (137-145) mmol/L BUN (9-20) mg/dL Creatinine (0.66-1.25) mg/dL Glucose (74-99) mg/dL POC Glucose (mg/dL) 144 H 141 H (75-99) mg/dL Total Protein (6.3-8.2) g/dL Albumin (3.5-5.0) g/dL 10/22/20 10/22/20 Range/Units 03: 05:54 WBC (3.8-10.6) k/uL RBC (4.30-5.90) m/uL Hgb (13.0-17.5) gm/dL Hct (39.0-53.0) % RDW (11.5-15.5) % Neutrophils # (1.3-7.7) k/uL Neutrophils # (Manual) (1.3-7.7) k/uL Lymphocytes # (Manual) (1.0-4.8) k/uL Sodium 135 L (137-145) mmol/L BUN 64 H (9-20) mg/dL Creatinine 1.49 H (0.66-1.25) mg/dL Glucose 128 H (74-99) mg/dL POC Glucose (mg/dL) 176 H (75-99) mg/dL Total Protein 5.4 L (6.3-8.2) g/dL Albumin 2.4 L (3.5-5.0) g/dL Microbiology - Last 24 Hours (Table) 10/18/20 09:08 Blood Culture - Preliminary Blood No Growth after 72 hours 10/18/20 20:35 Gram Stain - Final Sputum Sputum Culture - Final Radha albicans Assessment and Plan Plan: 1 Bilateral lower lobe pneumonia with sepsis. The patient's chest x-ray shows interval improvement in the bilateral pleural effusions. The patient continues to have respiratory secretions. His previous cultures have shown a combination of Klebsiella and MSSA. The patient has been on IV cefepime since 09/13/2020. The Flagyl was also added by infectious disease. The patient is currently on 28% trach collar. Secretions are scant and the patient has some limited atelectatic changes and small effusion the lung bases bilaterally. Overall respiratory status is stable on today's evaluation. No signs of any respiratory distress. The most recent sputum culture came back positive for Radha. 2 Acute on chronic hypoxic respiratory failure secondary to pneumonia and underlying COPD, currently on a 28% trach collar and the patient required tracheostomy following a prolonged intubation mechanical ventilation post cardiac surgery. 3 Bilateral lower lobe pneumonia, secondary to MSSA, and Klebsiella pneumonia (cultured in the sputum) 4 Sepsis secondary to pneumonia, currently off pressors 5 Acute on chronic kidney injury secondary to sepsis, , improving, current creatinine 1.48 and his renal function is been stable over the past few days and the patient has probably an underlying chronic kidney disease at this point in time. 6 Moderate-severe COPD. 7 History of triple-vessel coronary artery disease, bypass surgery on 07/18/2020 with multiple postoperative complications 8 History of tracheostomy mostly because of failure to wean. The patient has a #8 Shiley tracheostomy tube in place 9 Benign essential hypertension. 10 Type 2 diabetes. The patient is receiving subcutaneous insulin based on the skin every 6 hours 11 Dyslipidemia. 12 Chronic atrial fibrillation, on amiodarone and on anticoagulation therapy with Lovenox and he is also on oral amiodarone and oral metoprolol. Cardiac rhythm is sinus for some morning. Currently is in a sinus rhythm 13 History of hypothyroidism. 14 History of ileostomy on 08/02/2020. 15 Chronic anemia, hemoglobin is stable at 9.5 16 generalized motor weakness and debility seconds above-mentioned comorbidities, and the patient is gradually getting stronger. He still needs a left to be moved to a recliner. 17 Large volume diarrhea, out of the ileostomy, C. diff has been ruled out and initiated on octreotide and Questran and Lomotil he is on vital high AF at the rate of 90 mL an hour 18 acute on top of chronic anemia, will receive 2 unit of packed RBC and the patient's hemoglobin today is at 9.5 19 stage IV sacral pressure ulcer currently dressed with silver alginate and pressure dressing 20 stage II pressure ulcer on his right heel 21 small abdominal wall hematoma the site of Lovenox injectionhe is currently o ff the Lovenox injection and the patient is back to [facility]. Plan: Continue cefepime and Flagyl Past is swallowing a bedside evaluation and the patient's diet is being gradually advanced. He currently is taking full liquid Pulmonary toileting and frequent suctioning every 3-4 hours lactated Ringer's at 50 cc per hour of the free water flushes through his PEG tube mobility and move him up on a chair Amiodarone 400 mg twice a day in addition to Lopressor 25 mg 3 times a day and Eliquis 5 mg by mouth twice a day regarding his atrial fibrillation and his cardiac rhythm is sinus rhythm. Wound care with many honey and OptiForm through the sacral and regular dressing to his right heel and will relieve some of the pressure by positioning Tracheostomy care and frequent suctioning Physical therapy We'll continue to monitor We will continue to follow and make further recommendations based on his clinical status
[2020-10-22] MEDS: IPRATROPIUM-ALBUTEROL 3 ML NEB INHALATION SCH ×4 (08:39→20:56)
[2020-10-22] MEDS: BUDESONIDE 1 MG/2 ML NEBU INHALATION SCH ×2 (08:39→20:56)
[2020-10-22] MEDS: CHOLESTYRAMINE (WITH SUGAR) 4 GM PACKET PO SCH ×2 (09:39→16:56)
[2020-10-22] MEDS: LACTATED RINGERS 1,000 ML IV SCH (09:39)
[2020-10-22] MEDS: CEFEPIME 2 GM in SODIUM CHLORIDE 0.9% 100 ML IVPB SCH ×2 (09:40→21:25)
[2020-10-22] MEDS: METOPROLOL TARTRATE 25 MG TAB PO SCH ×3 (09:40→21:29)
[2020-10-22] MEDS: TAMSULOSIN 0.4 MG CAP.ER.24H PO SCH (09:40)
[2020-10-22] MEDS: AMIODARONE 200 MG TAB PO SCH ×2 (09:40→21:29)
[2020-10-22] MEDS: ASPIRIN 81 MG PO SCH (09:40)
[2020-10-22] MEDS: APIXABAN 5 MG TAB PO SCH ×2 (09:40→21:29)
--- NOTE | 2020-10-22 11:07 | P.PN ---
Subjective Progress Note Date: 10/22/20 f/u for CONNOR Objective - Vital Signs Vital signs: Vital Signs Temp 97.9 F 10/22/20 08:00 Pulse 85 10/22/20 08:57 Resp 12 10/22/20 08:00 BP 121/87 10/22/20 08:00 Pulse Ox 98 10/22/20 08:00 Intake & Output 10/21/20 10/22/20 10/22/20 18:59 06:59 18:59 Intake Total 300 550 100 Output Total 4540 1500 2275 Balance -1579 -818 -8807 Weight 78.2 kg Intake: IV 300 550 100 Cefepime 2 gm In Sodium 100 Chloride 0.9% 100 ml @ 25 mls/hr IVPB Q12HR [facility] Rx #:[id number] Lactated Ringers 1,000 ml 300 550 @ 50 mls/hr IV .Q20H [facility]ADE Rx#:[id number] Output: Urine 600 500 Stool 3940 1000 2275 Other: Voiding Method Urinal Urinal Urinal - Exam no acute distress s1 s2 herd lungs clear no edema - Labs CBC & Chem 7: 10/22/20 03:21 10/22/20 03:21 Labs: Abnormal Lab Results - Last 24 Hours (Table) 10/21/20 10/21/20 10/21/20 Range/Units 08:27 11:36 17:34 WBC (3.8-10.6) k/uL RBC (4.30-5.90) m/uL Hgb (13.0-17.5) gm/dL Hct (39.0-53.0) % RDW (11.5-15.5) % Neutrophils # (1.3-7.7) k/uL Neutrophils # (Manual) 10.68 H (1.3-7.7) k/uL Lymphocytes # (Manual) 0.48 L (1.0-4.8) k/uL Sodium (137-145) mmol/L BUN (9-20) mg/dL Creatinine (0.66-1.25) mg/dL Glucose (74-99) mg/dL POC Glucose (mg/dL) 151 H 144 H (75-99) mg/dL Total Protein (6.3-8.2) g/dL Albumin (3.5-5.0) g/dL 10/21/20 10/22/20 10/22/20 Range/Units 23:51 03:21 03:21 WBC 12.7 H (3.8-10.6) k/uL RBC 3.28 L (4.30-5.90) m/uL Hgb 9.5 L (13.0-17.5) gm/dL Hct 29.8 L (39.0-53.0) % RDW 18.9 H (11.5-15.5) % Neutrophils # 10.2 H (1.3-7.7) k/uL Neutrophils # (Manual) (1.3-7.7) k/uL Lymphocytes # (Manual) (1.0-4.8) k/uL Sodium 135 L (137-145) mmol/L BUN 64 H (9-20) mg/dL Creatinine 1.49 H (0.66-1.25) mg/dL Glucose 128 H (74-99) mg/dL POC Glucose (mg/dL) 141 H (75-99) mg/dL Total Protein 5.4 L (6.3-8.2) g/dL Albumin 2.4 L (3.5-5.0) g/dL 10/22/20 Range/Units 05:54 WBC (3.8-10.6) k/uL RBC (4.30-5.90) m/uL Hgb (13.0-17.5) gm/dL Hct (39.0-53.0) % RDW (11.5-15.5) % Neutrophils # (1.3-7.7) k/uL Neutrophils # (Manual) (1.3-7.7) k/uL Lymphocytes # (Manual) (1.0-4.8) k/uL Sodium (137-145) mmol/L BUN (9-20) mg/dL Creatinine (0.66-1.25) mg/dL Glucose (74-99) mg/dL POC Glucose (mg/dL) 176 H (75-99) mg/dL Total Protein (6.3-8.2) g/dL Albumin (3.5-5.0) g/dL Microbiology - Last 24 Hours (Table) 10/18/20 09:08 Blood Culture - Preliminary Blood No Growth after 72 hours 10/18/20 20:35 Gram Stain - Final Sputum Sputum Culture - Final Radha albicans Assessment and Plan Assessment: 1. CONNOR secondary to ATN, creatinine stable 2. CKD3 with baseline 1.2-1.5 mg/dl 3. A.fib with rvr 4. anemia with CKD 5. pneumonia on abx Plan: 1. renal function stable. #2 avoid nephrotoxic agents and hypotensive episodes. #3 continue with a LR, midodrine and octreotide.
[2020-10-22] MEDS: ACETAMINOPHEN TAB 325 MG TAB PO PRN ×2 (11:23→21:26)
[2020-10-22 11:35] LABS: Glucose,Whole Blood 131 mg/dL (75-99)
--- NOTE | 2020-10-22 16:58 | P.PN ---
Progress Note - Text Progress Note Date: 10/22/20 The patient in stable. He has been tolerating his thickened liquids. On exam her vital signs are stable. Abdomen soft. Wound is healing. Chronic malnutrition secondary to high output ileostomy. Patient should have his ileostomy reversed when medically stable. We'll continue to increase his oral diet.
[2020-10-22 17:51] LABS: Glucose,Whole Blood 176 mg/dL (75-99)
--- NOTE | 2020-10-22 19:20 | P.PN ---
Progress Note - Text Progress Note Date: 10/22/20 Interval history: This is a pleasant 80 years old male with past medical history of coronary art fuad disease, COPD, diabetes mellitus, hyperlipidemia, hypertension, hypothyroidism, coronary artery disease status post cardiac cath and stent placement. He recently underwent double coronary artery bypass grafting for his triple-vessel coronary artery disease. He was in the hospital from 07/18/20- 08/25/2020 pt has tracheostomhy and PEG tube , Information were obtained with the help of at bedside, he presents with confusion, and a lot of secretion Why he states that after been discharged from acute and he went to [facility] aren't states therefore one month and 5 days and then he was discharged a few days ago [place] [facility] on Friday, however over the weekend he has more congestion, he has weak cough and needed frequent suctioning, patient was able to talk weekly his little confused but he can't communicate through gesture, he denies pain but he is tachypneic He has tracheostomy, PEG tube and try to colostomy. Admitted with-hypotension secondary to severe sepsis secondary to pneumonia, aspiration pneumonia, acute hypoxic respiratory failure, acute kidney injury secondary to ATN, elevated sodium, increased lactic acid, elevated troponin felt to be from tachycardia. Recent history of intraperitoneal hemorrhage status post laboratory with washout and ileostomy on 08/02/2020. Tracheostomy. C. diff ruled out. Recurrent A. fib Today-ICU: Awake. Able to talk Tracheal secretions clear. On trach shield- 28%. 2 feeding at 90 mL an hour. Left abdominal wall hematoma at Lovenox site. Family visiting. Able to swallow for liquids. Bedside evaluation was done. Review of systems: Unable to assess ration able to communicate some Active Medications Acetaminophen (Acetaminophen Tab 325 Mg Tab) 650 mg PO Q6HR PRN PRN Reason: Fever and/ or Pain Last Admin: 10/22/20 11:23 Dose: 650 mg Documented by: Albuterol/Ipratropium (Ipratropium-Albuterol 3 Ml Neb) 3 ml INHALATION RT-QID WADE Last Admin: 10/22/20 16:22 Dose: 3 ml Documented by: Albuterol/Ipratropium (Ipratropium-Albuterol 3 Ml Neb) 3 ml INHALATION RT-Q2H PRN PRN Reason: Shortness Of Breath Or Wheezing Last Admin: 10/03/20 21:27 Dose: 3 ml Documented by: Amiodarone HCl (Amiodarone 200 Mg Tab) 400 mg PO BID [facility] Last Admin: 10/22/20 09:40 Dose: 400 mg Documented by: Apixaban (Apixaban 5 Mg Tab) 5 mg PO BID [facility] Last Admin: 10/22/20 09:40 Dose: 5 mg Documented by: Aspirin (Aspirin 81 Mg) 81 mg PO DAILY [facility] Last Admin: 10/22/20 09:40 Dose: 81 mg Documented by: Atorvastatin Calcium (Atorvastatin 40 Mg Tab) 40 mg PEG/G-TUBE HS@2000 [facility] Last Admin: 10/21/20 20:52 Dose: 40 mg Documented by: Budesonide (Budesonide 1 Mg/2 Ml Nebu) 1 mg INHALATION RT-BID [facility] Last Admin: 10/22/20 08:39 Dose: 1 mg Documented by: Cholestyramine Resin (Cholestyramine (With Sugar) 4 Gm Packet) 4 gm PO BID@1000,1800 [facility] Last Admin: 10/22/20 16:56 Dose: 4 gm Documented by: Darbepoetin Alex (Darbepoetin Alex 40 Mcg/0.4 Ml Syringe) 40 mcg SQ Q7D [facility] Last Admin: 10/17/20 09:48 Dose: 40 mcg Documented by: Diphenoxylate HCl/Atropine (Diphenox-Atrop 2.5-0.025 Mg 1 Each Tab) 1 each PO Q6HR [facility] Last Admin: 10/22/20 16:56 Dose: 1 each Documented by: Famotidine (Famotidine 20 Mg Tab) 20 mg PO HS [facility] Last Admin: 10/21/20 20:52 Dose: 20 mg Documented by: Lactated Ringer's (Lactated Ringers) 1,000 mls @ 50 mls/hr IV .Q20H [facility] Last Admin: 10/22/20 09:39 Dose: 50 mls/hr Documented by: Cefepime HCl 2 gm/ Sodium (Chloride) 100 mls @ 25 mls/hr IVPB Q12HR [facility] Last Admin: 10/22/20 09:40 Dose: 25 mls/hr Documented by: Insulin Aspart (Insulin Aspart (Novolog) 100 Unit/Ml Vial) 0 unit SQ Q6H [facility]; Protocol Last Admin: 10/22/20 13:10 Dose: Not Given Documented by: Levothyroxine Sodium (Levothyroxine 50 Mcg Tab) 50 mcg PEG/G-TUBE DAILY@0600 [facility] Last Admin: 10/22/20 06:23 Dose: 50 mcg Documented by: Melatonin (Melatonin 3 Mg Tablet) 3 mg PO HS PRN PRN Reason: Insomnia Last Admin: 10/20/20 21:18 Dose: 3 mg Documented by: Metoprolol Tartrate (Metoprolol Tartrate 25 Mg Tab) 25 mg PO TID [facility] Last Admin: 10/22/20 16:54 Dose: 25 mg Documented by: Metronidazole (Metronidazole 500 Mg Tab) 500 mg PO TID [facility] Last Admin: 10/22/20 16:54 Dose: 500 mg Documented by: Midodrine (Midodrine 5 Mg Tab) 10 mg PO Q8HR [facility] Last Admin: 10/22/20 16:54 Dose: 10 mg Documented by: Miscellaneous Information (Potassium Replacement Protocol 1 Each Misc) 1 each MISCELLANE DAILY PRN; Protocol PRN Reason: Per Protocol Naloxone HCl (Naloxone 0.4 Mg/Ml 1 Ml Vial) 0.2 mg IV Q2M PRN PRN Reason: Opioid Reversal Octreotide Acetate (Octreotide 100 Mcg/Ml Inj) 100 mcg SQ Q8HR [facility] Last Admin: 10/22/20 16:54 Dose: 100 mcg Documented by: Ondansetron HCl (Ondansetron 4 Mg/2 Ml Vial) 4 mg IVP Q8HR PRN PRN Reason: Nausea And Vomiting Last Admin: 10/11/20 03:52 Dose: 4 mg Documented by: Quetiapine Fumarate (Quetiapine 25 Mg Tab) 25 mg PO [facility] Last Admin: 10/21/20 20:53 Dose: 25 mg Documented by: Tamsulosin HCl (Tamsulosin 0.4 Mg Cap.Er.24h) 0.4 mg PO PC-BRKFST [facility] Last Admin: 10/22/20 09:40 Dose: 0.4 mg Documented by: On examination: VITAL SIGNS: 97.2, 73, 26, 112/65, 98% on trach collar GENERAL APPEARANCE: Sitting up in bed, awake, tired HEENT:Trach collar with shield EYES: Pupils equal. Conjunctiva normal. NECK: JVD not raised. Mass not palpable. RESPIRATORY: Respiratory effort increased Lungs decreased breath sounds CARDIOVASCULAR: First and second sounds normal. No edema. ABDOMEN: Soft. Liver and spleen not palpable. Ileostomy . Left abdominal claudio rolf PSYCHIATRY: Alert and oriented x3. Mood and affect tired INVESTIGATIONS, reviewed in the clinical context: October 22: WBC 12.7 hemoglobin 9.5 potassium 3.6 creatinine 1.49 October 21: WBC 30.3 October 20: White count 13.2 hemoglobin 9.4 platelets 206 potassium 4 creatinine 1.48 White count 7.1 hemoglobin 8.7 platelets 256 potassium 3.8 bicarbonate 20 bun 33 creatinine 3.17 Sputum culture-positive for Staphylococcus aureus MSSA, Klebsiella Pneumoniae Previous labs: White count 16.6 hemoglobin 9.9 platelets 584 bun 100 creatinine 3.18 Coronavirus PCR-not detected Renal ultrasound-normal bilateral renal ultrasound Assessment and plan: -Hypotensive shock -better. remains off norepinephrine IV , on midodrine- -Abdominal wound at surgical incision site, followed by general surgery with local dressing -History of ischemic small bowel with evidence of pneumatosis status post small bowel resection on 07/24/2020 -Ileostomy for intraperitoneal hemorrhage and small bowel ischemia status post exploratory laboratory or short of periportal cavity on 08/02/2020 -Coronary artery disease with bypass in July 2020, and Lopressor. Aspirin -Acute hypoxic respiratory failure secondary to pneumonia, continue with oxygen supplementation, currently with the trach collar, 28% -Anemia secondary to chronic kidney disease , follow H&H -Acute kidney injury secondary to ATN secondary to hypotension and hemodynamic instability - Creatinine 1.48 -Chronic kidney disease stage III the baseline creatinine of 1.2-1.5 secondary to nephrosclerosis -Paroxysmal atrial fibrillation with rapid ventricular rate on amiodarone by mouth, Lopressor, converted to sinus rhythm. Patient has been in and out of rapid A. fib. -Hypernatremia secondary to decreased oral water intake. 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 Patient is on eliquis, IV cefepime, Questran, Lomotil, lactated Ringer's at 50 mL an hour. Flagyl and subcu Sandostatin
[2020-10-22] MEDS: MELATONIN 3 MG TABLET PO PRN (21:29)
[2020-10-22] MEDS: FAMOTIDINE 20 MG TAB PO SCH (21:29)
[2020-10-22] MEDS: ATORVASTATIN 40 MG TAB PEG/G-TUBE SCH (21:29)
[2020-10-22] MEDS: QUEtiapine 25 MG TAB PO SCH (21:52)
--- NOTE | 2020-10-22 22:28 | PN ---
PROGRESS NOTE DATE OF SERVICE: 10/22/2020 REASON FOR FOLLOWUP: Pneumonia. INTERVAL HISTORY: The patient is currently afebrile. He is breathing comfortably. Denies having any chest pain. Occasional cough. No nausea, vomiting. No abdominal pain and no worsening output from his ileostomy. PHYSICAL EXAMINATION: Blood pressure 112/75, pulse of 72, temperature is 97.2, he is 98% on trach collar. General description is an elderly male lying in bed in no distress. RESPIRATORY system: Unlabored breathing, clear to auscultation anteriorly. HEART S1, S2. Regular rate and rhythm. ABDOMEN: Soft. No tenderness. LABS: Hemoglobin 9.5, white count of 12.7, BUN of 64, creatinine 1.49. DIAGNOSTIC IMPRESSION AND PLAN: Patient with pneumonia in this patient who has been MSSA, Klebsiella. Patient repeat showing Radha, on cefepime and Flagyl to continue and monitor clinical course closely. Continue supportive care. MMODL / IJN: [id number] /
[2020-10-22 23:51] LABS: Glucose,Whole Blood 120 mg/dL (75-99)
[2020-10-23] MEDS: INSULIN ASPART (NovoLOG) 100 UNIT/ML VIAL SQ SCH ×4 (00:09→17:18)
[2020-10-23] MEDS: OCTREOTIDE 100 MCG/ML INJ SQ SCH ×3 (00:09→17:12)
[2020-10-23] MEDS: ACETAMINOPHEN TAB 325 MG TAB PO PRN ×3 (03:30→17:12)
[2020-10-23 04:36] LABS: Anisocytosis Slight; Basophils # (A) 0.1 k/uL (0-0.2); Basophils % (A) 1 %; Eosinophils # (A) 0.2 k/uL (0-0.7); Eosinophils % (A) 2 %; HCT 29.2 % (39.0-53.0); HGB 9.4 gm/dL (13.0-17.5); Hypochromasia Slight; Lymphocytes % (A) 10 %; MCH 29.3 pg (25.0-35.0); MCHC 32.3 g/dL (31.0-37.0); MCV 90.7 fL (80.0-100.0); Mean Platelet Volume 7.8; Monocytes # (A) 0.7 k/uL (0-1.0); Monocytes % (A) 7 %; Neutrophils # (A) 8.2 k/uL (1.3-7.7); Neutrophils % (A) 79 %; Platelet Count 222 k/uL (150-450); Poikilocytosis Slight; RBC 3.21 m/uL (4.30-5.90); RDW 19.2 % (11.5-15.5); WBC 10.4 k/uL (3.8-10.6)
[2020-10-23] MEDS: LACTATED RINGERS 1,000 ML IV SCH ×2 (04:45→09:12)
[2020-10-23 04:53] LABS: Albumin 2.5 g/dL (3.5-5.0); Calcium 8.7 mg/dL (8.4-10.2); Total Bilirubin 0.6 mg/dL (0.2-1.3); Total Protein 5.4 g/dL (6.3-8.2)
[2020-10-23] MEDS: DIPHENOX-ATROP 2.5-0.025 MG 1 EACH TAB PO SCH ×3 (05:42→17:12)
[2020-10-23] MEDS: LEVOTHYROXINE 50 MCG TAB PEG/G-TUBE SCH (05:42)
[2020-10-23 06:16] LABS: Glucose,Whole Blood 175 mg/dL (75-99)
[2020-10-23] MEDS: BUDESONIDE 1 MG/2 ML NEBU INHALATION SCH ×2 (08:13→20:57)
[2020-10-23] MEDS: IPRATROPIUM-ALBUTEROL 3 ML NEB INHALATION SCH ×4 (08:13→20:57)
[2020-10-23] MEDS: metroNIDAZOLE 500 MG TAB PO SCH ×3 (09:10→21:54)
[2020-10-23] MEDS: CHOLESTYRAMINE (WITH SUGAR) 4 GM PACKET PO SCH ×2 (09:10→17:12)
[2020-10-23] MEDS: AMIODARONE 200 MG TAB PO SCH ×2 (09:10→21:53)
[2020-10-23] MEDS: CEFEPIME 2 GM in SODIUM CHLORIDE 0.9% 100 ML IVPB SCH ×2 (09:10→21:54)
[2020-10-23] MEDS: METOPROLOL TARTRATE 25 MG TAB PO SCH ×3 (09:10→21:54)
[2020-10-23] MEDS: APIXABAN 5 MG TAB PO SCH ×2 (09:11→21:54)
[2020-10-23] MEDS: MIDODRINE 5 MG TAB PO SCH ×2 (09:11→17:12)
[2020-10-23] MEDS: TAMSULOSIN 0.4 MG CAP.ER.24H PO SCH (09:11)
[2020-10-23] MEDS: ASPIRIN 81 MG PO SCH (09:43)
--- NOTE | 2020-10-23 10:27 | CONS ---
CONSULTATION DATE OF EVALUATION: October 23, 2020. REASON FOR CONSULTATION: Evaluation pressure ulcers. HISTORY OF PRESENT ILLNESS: The patient is a 80-year-old male with complicated recent hospital courses. The underwent coronary artery bypass grafting procedures in July 2020, complicated by ischemic bowel requiring exploratory laparotomy, small-bowel resection, further complicated by intraperitoneal bleed requiring more operative intervention with ileostomy, also respiratory failure, pneumonia. Prior to his hospitalization, the patient had acquired ulcers involving the sacral and right heel area. I was asked to evaluate these ulcers for treatment recommendations. The patient complains of pain. PAST MEDICAL HISTORY: Significant for coronary artery disease, hypertension, paroxysmal atrial fibrillation, COPD, diabetes mellitus type 2, renal disease, pneumonia. PAST SURGICAL HISTORY: Significant for operative procedures mentioned. MEDICATIONS: Reviewed in the patient's computerized medication chart. ALLERGIES: There are no known drug allergies. SOCIAL HISTORY: Reveals patient is a former user of tobacco products. REVIEW OF SYSTEMS: Could not be comprehensive due to the patient's clinical status. He is in ICU bed 260. He is awake, has significant pain in various locations and demonstrable weakness and immobility. PHYSICAL EXAMINATION: Physical examination reveals the patient alert and oriented x3. He is weak. He is unable to turn without assistance. He is afebrile. Other vital signs within normal limits. Directed evaluation of the patient's lower extremity reveals pedal pulses are faintly palpable. Feet are coolish. The right heel has an open ulcer with a grade yellowish exudative base, likely subcutaneous, but cannot be fully determined. There is minimal erythema surrounding this ulcer and the surfaces are moist. Tenderness is present. The patient's sacral ulcer is open with necrotic base. It is now from surrounding tissue. Overall depth cannot be stated. There is surrounding erythema such as seen with incontinence associated dermatitis and severe moisture injury. It appears this area of erythema is recovering from moisture injury as opposed to new areas of injury or extension of the sacral ulcer. IMPRESSION: 1. Unstageable sacral pressure ulcer. 2. Stage II or stage III right heel pressure ulcer, both ulcers acquired prior to hospitalization. 3. Immobility. 4. Weakness. 5. Multiple medical illnesses including diabetes, renal disease, and coronary artery disease. MEDICAL DECISION MAKING/RECOMMENDATIONS: A long [id number] evaluation is performed the patient and his nurse and coordinating the care with his surgeon, I have recommended continued use of specialty mattress, avoiding as much pressure as possible with turning schedule and continued use of the Optifoam to the right heel changed daily or as needed. With regards to sacral ulcer, I have recommended changing care to Medihoney daily or twice daily depending on needs. I have discussed this with the patient's surgeon and his ICU nurse as well as the patient. GABRIEL / KRISTEN: [id number] /
[2020-10-23 11:37] LABS: Glucose,Whole Blood 153 mg/dL (75-99)
--- NOTE | 2020-10-23 12:36 | P.PN ---
Subjective Progress Note Date: 10/23/20 CHIEF COMPLAINT: Respiratory distress HISTORY OF PRESENT ILLNESS: Patient seen and examined with Dr. Dempsey. Patient is being followed in regards to his abdominal wound at incision site. Patient remains in the ICU. He is lying in bed. He denies any abdominal pain. Patient is still having high ileostomy output. He remains on Questran, Lomotil and Sandostatin to help slow ileostomy output. Patient was on a full liquid diet with thickened liquids over the weekend. Patient is afebrile. Trach co llaring 100%. WBC 10.4 hemoglobin 9.4. Patient does have a decubitus ulcer of the sacrum PHYSICAL EXAM: VITAL SIGNS: Reviewed. GENERAL: Well-developed in no acute distress. HEENT: No sclera icterus. Extraocular movements grossly intact. Moist buccal mucosa. Head is atraumatic, normocephalic. ABDOMEN: Soft. Nondistended. Nontender. Dressing clean dry and intact. Patient has a brownish liquidy stool coming through the ileostomy. NEUROLOGIC: Alert and oriented. Cranial nerves II through XII grossly intact. Skin: sacral pressure ulcer. Edges of the ulcer are helping clean. Evidence of granulation tissue. No drainage. ASSESSMENT: 1. Abdominal wound at surgical incision site. 2. High ileostomy output 3. History of ischemic small bowel with evidence of pneumatosis status post small bowel resection on 07/24/2020. 4. History of intraperitoneal hemorrhage and small bowel ischemia status post exploratory laparotomy, washout of peritoneal cavity and ileostomy with small bowel resection on 08/02/2020 5. 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 Acute hypoxic respiratory failure secondary to pneumonia 7. Sepsis secondary to pneumonia 8. Acute kidney injury 9. chronic Anemia: With known chronic kidney disease and iron deficiency. He did require blood transfusion and IV Iron during this admission 10. Chronic malnutrition secondary to high ileostomy output 11. Unstageable sacral pressure ulcer PLAN: -Continue treatment per wound care service for sacral pressure ulcer -Recommend ileostomy reversal when patient is medically stable -Continue wound care with Aquacel dressing to abdominal wound -Continue Sandostatin, Lomotil and Questran to help with high-volume ileostomy output -Continue supportive care -Continue ICU management -Continue antibiotics per ID Physician Crew Person note has been reviewed by physician. Signing provider agrees with the documented findings, assessment, and plan of care. Objective - Vital Signs Vital signs: Vital Signs Temp 98.0 F 03/08/21 08:00 Pulse 72 10/23/20 11:24 Resp 26 H 10/23/20 08:00 BP 98/58 10/23/20 08:00 Pulse Ox 97 10/23/20 08:00 Intake & Output 10/22/20 10/23/20 10/23/20 18:59 06:59 18:59 Intake Total 100 1580 870 Output Total 3525 1400 2150 Balance -3425 180 -1280 Weight 78.4 kg Intake: IV 100 800 300 Cefepime 2 gm In Sodium 100 100 Chloride 0.9% 100 ml @ 25 mls/hr IVPB Q12HR [facility] Rx #:[id number] Lactated Ringers 1,000 ml 700 300 @ 50 mls/hr IV .Q20H [facility]ADE Rx#:[id number] Tube Feeding 720 540 Other 60 30 Output: Urine 300 300 350 Stool 3225 1100 1800 Other: Voiding Method Urinal Urinal - Labs CBC & Chem 7: 10/23/20 03:55 10/23/20 03:55 Labs: Abnormal Lab Results - Last 24 Hours (Table) 10/22/20 10/22/20 10/23/20 Range/Units 17:50 23:49 03:55 RBC 3.21 L (4.30-5.90) m/uL Hgb 9.4 L (13.0-17.5) gm/dL Hct 29.2 L (39.0-53.0) % RDW 19.2 H (11.5-15.5) % Neutrophils # 8.2 H (1.3-7.7) k/uL Sodium (137-145) mmol/L BUN (9-20) mg/dL Creatinine (0.66-1.25) mg/dL Glucose (74-99) mg/dL POC Glucose (mg/dL) 176 H 120 H (75-99) mg/dL Total Protein (6.3-8.2) g/dL Albumin (3.5-5.0) g/dL 10/23/20 10/23/20 10/23/20 Range/Units 03:55 06:15 11:35 RBC (4.30-5.90) m/uL Hgb (13.0-17.5) gm/dL Hct (39.0-53.0) % RDW (11.5-15.5) % Neutrophils # (1.3-7.7) k/uL Sodium 135 L (137-145) mmol/L BUN 67 H (9-20) mg/dL Creatinine 1.64 H (0.66-1.25) mg/dL Glucose 162 H (74-99) mg/dL POC Glucose (mg/dL) 175 H 153 H (75-99) mg/dL Total Protein 5.4 L (6.3-8.2) g/dL Albumin 2.5 L (3.5-5.0) g/dL Microbiology - Last 24 Hours (Table) 10/18/20 09:08 Blood Culture - Preliminary Blood No Growth after 120 hours
--- NOTE | 2020-10-23 13:14 | CDI ---
Documentation Clarification Form Date: 10/23/2020 12:26:15 PM From: Corinne Vidal RN CCDS Admit Date: 10/02/2020 11:26:00 AM Patient Name: Francisco Tinoco Visit Number: [id number] Discharge Date: ATTENTION: The Clinical Documentation Specialists (CDI) and [facility] Coding Staff appreciate your assistance in clarifying documentation. Please respond to the clarification below the line at the bottom and electronically sign. The CDI & [facility] Coding staff will review the response and follow-up if needed. Please note: Queries are made part of the Legal Health Record. If you have any questions, please contact the author of this message via ITS. Dr. Javier Salinas Chronic malnutrition secondary to high output ileostomy. Documented by SHELLY in Progress note 10/22. History/Risk Factors: 80-year-old male presents to the ED via EMS from [facility] for more congestion and weak cough needing suction. Medical History: Was admitted to [facility] 07/18/20 08/25/20 Cardiac bypass surgery 07/18/20, Intraperitoneal hemorrhage s/p exploratory laparotomy with washout and ileostomy on 08/01/20. Tracheostomy, Peg tube, CAD, COPD, DM, HTN and CKD. Clinical Indicators: Unstageable sacral pressure ulcer. Stage 2 or Stage 3 right heel pressure ulcer, both ulcers acquired prior to hospitalization. Documented in Plastic Surgery Consult 10/23. Dietary consult 10/18 found in [facility]. Anthropometrics: BMI 23.0. BMI Classification Normal. Energy Needs (KCAL) 2422 -2825. Estimated Protein Needs for ideal body weight: Estimated protein range (gram/day) 1.5 -2.0. Estimated protein needs (grams/day) 121-161. Estimated fluid needs (mls/day) 2422. Nutrition Diagnosis: Increased nutrient needs. Specific Nutrient: Protein, calories, vitamin C and Zinc. Diagnosis as evidenced by: increased metabolic demand for wound healing, pressure injury and high out put ileostomy. Treatment: Dietary Consult: see above. Supplements: PPN/TPN: 10/18 Vital AF 1.2, Volume 2,160.00; rate (ml/hr) 90. Free water flush 30ml every 4 hours. Documented in Dietary Consult. Lab monitorin/15 Blood Glucose Daily and POC Glucose QID. Total Protein and Albumin. Other: Monitor tube feedings. In your professional opinion, can you please clarify if these findings signify one of the following conditions? Moderate Protein-Calorie Malnutrition Severe Protein-Calorie Malnutrition Other condition, please specify Unable to determine (Last Revision: February 2019) Mild protein calorie malnutrition from high output ileostomy MTDD
--- NOTE | 2020-10-23 14:42 | P.PN ---
Subjective Progress Note Date: 10/23/20 Principal diagnosis: Acute on chronic hypoxic respiratory failure secondary to left lower lobe pneumonia and sepsis. 10/22/2020, the patient was able to tolerate some full liquid diet. We did a bedside swallow evaluation the patient was able to swallow. We will advance his diet today. He remains on a 28% trach collar and he continues to have rest or secretions. No new cultures from his sputum and the last culture was positive for Radha and the patient remains on a combination of IV cefepime and Flagyl. He has a high output ileostomy. He is still on vital AF. He is on Eliquis in addition to metoprolol and amiodarone regarding his atrial fibrillation. His rate is controlled and he is and sinus rhythm for now. Abdominal hematoma is stable. We are still taking care of his stage IV sacral decub ulcer and stage II right ulcer. His abdominal wound is also healing. No fever. Hemoglobin is stable at 9.5. White cell count stable at 12.7. He has adequate strength in his upper extremity. He seems to be getting stronger on a daily basis. Patient was reevaluated today on 10/23/2020, remains in the ICU, he is on 28% trach collar. Remains on tube feeds, and full liquid diet, however the patient is aspirating according to the speech therapist, and he failed his swallow evaluation, hence I would hold his liquid diet for now. And continue enteral feeding via PEG tube. His IV fluid is all are at 50 mL per hour. Patient seems to be in no distress, however he seems to be concerned about his sacral decubitus ulcer which is a stage III or 4, on his coccyx, and that being addressed by wound care staff. And also seen by Dr. Dempsey no debridement is recommended. Chest x-ray showed left lower lobe atelectasis and small pleural effusion. CBC is relatively normal. The left lites are normal. However his BUN is 67 creatinine is 1.64 Objective - Vital Signs Vital signs: Vital Signs Temp 98.1 F 10/23/20 12:00 Pulse 68 10/23/20 12:00 Resp 23 10/23/20 12:00 BP 96/60 10/23/20 12:00 Pulse Ox 100 10/23/20 12:00 Intake & Output 10/22/20 10/23/20 10/23/20 18:59 06:59 18:59 Intake Total 100 1580 1840 Output Total 3525 1400 2450 Balance -3425 180 -610 Weight 78.4 kg Intake: IV 100 800 700 Cefepime 2 gm In Sodium 100 100 100 Chloride 0.9% 100 ml @ 25 mls/hr IVPB Q12HR [facility] Rx #:[id number] Lactated Ringers 1,000 ml 700 600 @ 50 mls/hr IV .Q20H WADE Rx#:[id number] Tube Feeding 720 1080 Other 60 60 Output: Urine 300 300 700 Stool 3225 1100 1750 Other: Voiding Method Urinal Urinal - Exam Physical Exam: Revealed 80-year-old white male pleasant, on trach collar, 28% FiO2 HEENT:[Neck is supple.] [No neck masses.] [No thyromegaly.] [No JVD.] Tracheostomy is intact. Chest: Symmetrical chest expansion, crackles and rhonchi noted bilaterally especially at the left base Cardiac Exam: [Normal S1 and S2, no S3 gallop, no murmur.] Abdomen: [Soft, nontender, no megaly, no rebound, no guarding, normal bowel sounds.] Surgical scar is noted in the mid abdomen, significant output is noted from his right ileostomy, patient has a fecal management system applied. Extremities: [No clubbing, 1+ bipedal edema, no cyanosis.] Neurological Exam: Alert and oriented 3. [No focal neurologic deficit.] Psychiatric: Normal mood, affect and normal mental status examination. Skin: No rashes, surgical scar noted in the abdomen, some minimal drainage noted, clean dressing , stage III sacral decubitus ulcer 35 cm noted. - Labs CBC & Chem 7: 10/23/20 03:55 10/23/20 03:55 Labs: Abnormal Lab Results - Last 24 Hours (Table) 10/22/20 10/22/20 10/23/20 Range/Units 17:50 23:49 03:55 RBC 3.21 L (4.30-5.90) m/uL Hgb 9.4 L (13.0-17.5) gm/dL Hct 29.2 L (39.0-53.0) % RDW 19.2 H (11.5-15.5) % Neutrophils # 8.2 H (1.3-7.7) k/uL Sodium (137-145) mmol/L BUN (9-20) mg/dL Creatinine (0.66-1.25) mg/dL Glucose (74-99) mg/dL POC Glucose (mg/dL) 176 H 120 H (75-99) mg/dL Total Protein (6.3-8.2) g/dL Albumin (3.5-5.0) g/dL 10/23/20 10/23/20 10/23/20 Range/Units 03:55 06:15 11:35 RBC (4.30-5.90) m/uL Hgb (13.0-17.5) gm/dL Hct (39.0-53.0) % RDW (11.5-15.5) % Neutrophils # (1.3-7.7) k/uL Sodium 135 L (137-145) mmol/L BUN 67 H (9-20) mg/dL Creatinine 1.64 H (0.66-1.25) mg/dL Glucose 162 H (74-99) mg/dL POC Glucose (mg/dL) 175 H 153 H (75-99) mg/dL Total Protein 5.4 L (6.3-8.2) g/dL Albumin 2.5 L (3.5-5.0) g/dL Microbiology - Last 24 Hours (Table) 10/18/20 09:08 Blood Culture - Preliminary Blood No Growth after 120 hours Assessment and Plan Assessment: Impression: Hypotension secondary to sepsis secondary to left lower lobe pneumonia, also suspect significant component of hypovolemia in addition to his sepsis, strongly doubt septic shock. Acute on chronic hypoxic respiratory failure secondary to pneumonia and underlying COPD. Acute left lower lobe pneumonia, secondary to MSSA, and Klebsiella pneumonia Sepsis secondary to pneumonia involving the left lower lobe. Acute on chronic kidney injury secondary to sepsis. Moderate severe COPD. History of triple-vessel coronary artery disease, bypass surgery on 07/18/2020 with multiple postoperative complications History of tracheostomy mostly because of failure to wean. Benign essential hypertension. Type 2 diabetes. Dyslipidemia. Chronic atrial fibrillation. On amiodarone and on anticoagulation therapy History of hypothyroidism. History of ileostomy on 08/02/2020. Chronic anemia Stage IV decubitus ulcer. Stage II pressure ulcer on the right heel. Recommendation: Continue IV fluids and close monitoring of his fluid status. Continue present supportive care measures. Continue cefepime and Flagyl. Consider repeat swallow evaluation, in the meantime hold liquid diet. Wound care consultation. Continue tracheostomy care. Physical therapy. Continue GI and DVT prophylaxis. Continue bronchodilators. Continue amiodarone. Continue midodrine Continue fluids and may need boluses at times because of the significant output from the ileostomy. We'll continue to follow. Not quite ready to be transferred out of the ICU. Critical care time is over 30 minutes Time with Patient: Greater than 30
[2020-10-23 17:11] LABS: Glucose,Whole Blood 108 mg/dL (75-99)
--- NOTE | 2020-10-23 17:17 | PN ---
PROGRESS NOTE The patient is seen for followup for acute kidney injury. Renal function fairly stable, although creatinine slightly higher at 1.6 today from 1.5 and 1.4 mg/dL. Patient has had good urine output about 1.1 L for 24 hours. The patient is currently sleeping. He is arousable, not in any acute distress. He is maintained on Ringer lactate at 50 mL an hour. Blood pressure has been slightly on the lower side with systolic in the 90s. It had been about 111-120 earlier. PHYSICAL EXAMINATION: Patient appears euvolemic. No evidence of edema to lower extremities. LAB: Show sodium 135, potassium 4.0, chloride 104, BUN 67, serum creatinine 1.64 hemoglobin 9.4 g/dL. ASSESSMENT: 1. Acute kidney injury, acute tubular necrosis, currently stable with fluctuation in creatinine from 1.4 to 1.6 mg/dL. This is probably related to some degree of hypoperfusion. Continue with the half-normal saline at 50 mL an hour. 2. Chronic kidney disease stage 3. Baseline creatinine 1.2-1.5 mg/dL. 3. Atrial fibrillation with rapid ventricular response. 4. Anemia of chronic disease. Maintained on Aranesp. Currently stable. 5. Status post explorative laparotomy for ischemic bowel in July, currently with ileostomy. 6. Sepsis from pneumonia, currently stable and improved. PLAN: Continue with the Ringer lactate at 50 mL an hour. Repeat labs in a.m. Continue with the midodrine. MMODL / IJN: [id number] /
[2020-10-23 18:03] LABS: Glucose,Whole Blood 158 mg/dL (75-99)
--- NOTE | 2020-10-23 21:00 | P.PN ---
Progress Note - Text Progress Note Date: 10/23/20 Interval history: This is a pleasant 80 years old male with past medical history of coronary art fuad disease, COPD, diabetes mellitus, hyperlipidemia, hypertension, hypothyroidism, coronary artery disease status post cardiac cath and stent placement. He recently underwent double coronary artery bypass grafting for his triple-vessel coronary artery disease. He was in the hospital from 07/18/20- 08/25/2020 pt has tracheostomhy and PEG tube , Information were obtained with the help of at bedside, he presents with confusion, and a lot of secretion Why he states that after been discharged from acute and he went to [facility] aren't states therefore one month and 5 days and then he was discharged a few days ago to [facility] at [facility] on Friday, however over the weekend he has more congestion, he has weak cough and needed frequent suctioning, patient was able to talk weekly his little confused but he can't communicate through gesture, he denies pain but he is tachypneic He has tracheostomy, PEG tube and try to colostomy. Admitted with-hypotension secondary to severe sepsis secondary to pneumonia, aspiration pneumonia, acute hypoxic respiratory failure, acute kidney injury secondary to ATN, elevated sodium, increased lactic acid, elevated troponin felt to be from tachycardia. Recent history of intraperitoneal hemorrhage status post laboratory with washout and ileostomy on 08/02/2020. Tracheostomy. C. diff ruled out. Recurrent A. fib. She was not able to talk after covering his tracheostomy. Patient started on full liquids. Today-ICU: Seen by speech therapist today. Other the patient having silent aspiration. Full liquids discontinued. Barium study showed silent aspiration. Having liquid stools that are continued. Trach secretions still present. Review of systems: Was done for constitutional, cardiovascular, GI, pulmonary. relevant finding as above Active Medications Acetaminophen (Acetaminophen Tab 325 Mg Tab) 650 mg PO Q6HR PRN PRN Reason: Fever and/ or Pain Last Admin: 10/23/20 17:12 Dose: 650 mg Documented by: Albuterol/Ipratropium (Ipratropium-Albuterol 3 Ml Neb) 3 ml INHALATION RT-QID [facility]ADE Last Admin: 10/23/20 15:07 Dose: 3 ml Documented by: Albuterol/Ipratropium (Ipratropium-Albuterol 3 Ml Neb) 3 ml INHALATION RT-Q2H PRN PRN Reason: Shortness Of Breath Or Wheezing Last Admin: 10/03/20 21:27 Dose: 3 ml Documented by: Amiodarone HCl (Amiodarone 200 Mg Tab) 400 mg PO BID [facility] Last Admin: 10/23/20 09:10 Dose: 400 mg Documented by: Apixaban (Apixaban 5 Mg Tab) 5 mg PO BID [facility] Last Admin: 10/23/20 09:11 Dose: 5 mg Documented by: Aspirin (Aspirin 81 Mg) 81 mg PO DAILY [facility] Last Admin: 10/23/20 09:43 Dose: 81 mg Documented by: Atorvastatin Calcium (Atorvastatin 40 Mg Tab) 40 mg PEG/G-TUBE HS@2000 [facility] Last Admin: 10/22/20 21:29 Dose: 40 mg Documented by: Budesonide (Budesonide 1 Mg/2 Ml Nebu) 1 mg INHALATION RT-BID [facility] Last Admin: 10/23/20 08:13 Dose: 1 mg Documented by: Cholestyramine Resin (Cholestyramine (With Sugar) 4 Gm Packet) 4 gm PO BID@1000,1800 [facility] Last Admin: 10/23/20 17:12 Dose: 4 gm Documented by: Darbepoetin Alex (Darbepoetin Alex 40 Mcg/0.4 Ml Syringe) 40 mcg SQ Q7D [facility] Last Admin: 10/17/20 09:48 Dose: 40 mcg Documented by: Diphenoxylate HCl/Atropine (Diphenox-Atrop 2.5-0.025 Mg 1 Each Tab) 1 each PO Q6HR [facility] Last Admin: 10/23/20 17:12 Dose: 1 each Documented by: Famotidine (Famotidine 20 Mg Tab) 20 mg PO HS [facility] Last Admin: 10/22/20 21:29 Dose: 20 mg Documented by: Lactated Ringer's (Lactated Ringers) 1,000 mls @ 50 mls/hr IV .Q20H [facility] Last Admin: 10/23/20 09:12 Dose: 50 mls/hr Documented by: Cefepime HCl 2 gm/ Sodium (Chloride) 100 mls @ 25 mls/hr IVPB Q12HR [facility] Last Admin: 10/23/20 09:10 Dose: 25 mls/hr Documented by: Insulin Aspart (Insulin Aspart (Novolog) 100 Unit/Ml Vial) 0 unit SQ Q6H [facility]; Protocol Last Admin: 10/23/20 17:18 Dose: Not Given Documented by: Levothyroxine Sodium (Levothyroxine 50 Mcg Tab) 50 mcg PEG/G-TUBE DAILY@0600 [facility] Last Admin: 10/23/20 05:42 Dose: 50 mcg Documented by: Melatonin (Melatonin 3 Mg Tablet) 3 mg PO HS PRN PRN Reason: Insomnia Last Admin: 10/22/20 21:29 Dose: 3 mg Documented by: Metoprolol Tartrate (Metoprolol Tartrate 25 Mg Tab) 25 mg PO TID [facility] Last Admin: 10/23/20 17:12 Dose: 25 mg Documented by: Metronidazole (Metronidazole 500 Mg Tab) 500 mg PO TID [facility] Last Admin: 10/23/20 17:12 Dose: 500 mg Documented by: Midodrine (Midodrine 5 Mg Tab) 10 mg PO Q8HR [facility] Last Admin: 10/23/20 17:12 Dose: 10 mg Documented by: Miscellaneous Information (Potassium Replacement Protocol 1 Each Misc) 1 each MISCELLANE DAILY PRN; Protocol PRN Reason: Per Protocol Naloxone HCl (Naloxone 0.4 Mg/Ml 1 Ml Vial) 0.2 mg IV Q2M PRN PRN Reason: Opioid Reversal Octreotide Acetate (Octreotide 100 Mcg/Ml Inj) 100 mcg SQ Q8HR [facility] Last Admin: 10/23/20 17:12 Dose: 100 mcg Documented by: Ondansetron HCl (Ondansetron 4 Mg/2 Ml Vial) 4 mg IVP Q8HR PRN PRN Reason: Nausea And Vomiting Last Admin: 10/11/20 03:52 Dose: 4 mg Documented by: Quetiapine Fumarate (Quetiapine 25 Mg Tab) 25 mg PO HS [facility] Last Admin: 10/22/20 21:52 Dose: 25 mg Documented by: Tamsulosin HCl (Tamsulosin 0.4 Mg Cap.Er.24h) 0.4 mg PO -BRKFST [facility] Last Admin: 10/23/20 09:11 Dose: 0.4 mg Documented by: On examination: VITAL SIGNS: 98.1, 68, 23, 96 x 60, 100% on trach collar 28% FiO2 GENERAL APPEARANCE: Reclining bed, awake, tired HEENT:Trach collar with shield EYES: Pupils equal. Conjunctiva normal. NECK: JVD not raised. Mass not palpable. RESPIRATORY: Respiratory effort increased Lungs decreased breath sounds CARDIOVASCULAR: First and second sounds normal. No edema. ABDOMEN: Soft. Liver and spleen not palpable. Ileostomy-with yellow stools . Left abdominal hematoma PSYCHIATRY: Alert and oriented x3. Mood and affect tired INVESTIGATIONS, reviewed in the clinical context: October 23: WBC 10.4 hemoglobin 9.4 platelets 222 bun 67 creatinine 1.64 October 22: WBC 12.7 hemoglobin 9.5 potassium 3.6 creatinine 1.49 October 21: WBC 30.3 October 20: White count 13.2 hemoglobin 9.4 platelets 206 potassium 4 creatinine 1.48 White count 7.1 hemoglobin 8.7 platelets 256 potassium 3.8 bicarbonate 20 bun 33 creatinine 3.17 Sputum culture-positive for Staphylococcus aureus MSSA, Klebsiella Pneumoniae Previous labs: White count 16.6 hemoglobin 9.9 platelets 584 bun 100 creatinine 3.18 Coronavirus PCR-not detected Renal ultrasound-normal bilateral renal ultrasound Assessment and plan: -Hypotensive shock -better. remains off norepinephrine IV , on midodrine- -Abdominal wound at surgical incision site, followed by general surgery with local dressing -History of ischemic small bowel with evidence of pneumatosis status post small bowel resection on 07/24/2020 -Ileostomy for intraperitoneal hemorrhage and small bowel ischemia status post exploratory laboratory or short of periportal cavity on 08/02/2020 -Coronary artery disease with bypass in July 2020, and Lopressor. Aspirin -Acute hypoxic respiratory failure secondary to pneumonia, continue with oxygen supplementation, currently with the trach collar, 28% -Anemia secondary to chronic kidney disease , follow H&H -Acute kidney injury secondary to ATN secondary to hypotension and hemodynamic instability - Creatinine 1.48 -Chronic kidney disease stage III the baseline creatinine of 1.2-1.5 secondary to nephrosclerosis -Paroxysmal atrial fibrillation with rapid ventricular rate on amiodarone by mouth, Lopressor, converted to sinus rhythm. Patient has been in and out of rapid A. fib. -Hypernatremia secondary to decreased oral water intake. Receiving free water- improved -Possible aspiration pneumonia, sputum positive for MSSA and Klebsiella pneumoniae., Causing sepsis IV Zosyn-changed to IV cefepime -Silent aspiration detected by barium study. Patient has been made nothing by mouth. 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 Made nothing by mouth. Patient is on eliquis, IV cefepime, Questran, Lomotil, lactated Ringer's at 50 mL an hour. Flagyl and subcu Sandostatin. Add Metamucil
[2020-10-23] MEDS: QUEtiapine 25 MG TAB PO SCH (21:54)
[2020-10-23] MEDS: FAMOTIDINE 20 MG TAB PO SCH (21:54)
[2020-10-23] MEDS: ATORVASTATIN 40 MG TAB PEG/G-TUBE SCH (21:54)
[2020-10-23] MEDS: MELATONIN 3 MG TABLET PO PRN (21:54)
[2020-10-23] MEDS: PSYLLIUM HUSK 100% 6 GM PACKET PO SCH (22:00)
[2020-10-23 23:52] LABS: Glucose,Whole Blood 139 mg/dL (75-99)
[2020-10-24] MEDS: OCTREOTIDE 100 MCG/ML INJ SQ SCH ×3 (00:38→17:53)
[2020-10-24] MEDS: ACETAMINOPHEN TAB 325 MG TAB PO PRN (00:38)
[2020-10-24] MEDS: MIDODRINE 5 MG TAB PO SCH ×3 (00:39→17:53)
[2020-10-24] MEDS: INSULIN ASPART (NovoLOG) 100 UNIT/ML VIAL SQ SCH ×4 (00:39→17:43)
[2020-10-24] MEDS: DIPHENOX-ATROP 2.5-0.025 MG 1 EACH TAB PO SCH ×4 (00:39→17:53)
[2020-10-24] MEDS: HYDROcodone/APAP 5-325MG 1 EACH TAB PO PRN ×3 (00:41→21:37)
--- NOTE | 2020-10-24 04:40 | PN ---
PROGRESS NOTE DATE OF SERVICE: 10/23/2020 REASON FOR FOLLOWUP: Pneumonia. INTERVAL HISTORY: The patient is currently afebrile, has been breathing comfortably. Denies having any chest pain or shortness of breath. Occasional cough. No abdominal pain. Denies significant output from his ileostomy. PHYSICAL EXAMINATION: Blood pressure is 99/56, pulse of 80, temperature 98. He is 98% on trach collar. General description is an elderly male lying in bed in no distress. Respiratory system: Unlabored breathing, decreased breath sounds in the bases. No wheeze. Heart S1, S2. Regular rate and rhythm. ABDOMEN: Soft, no tenderness. LABS: White count normalized to 10. DIAGNOSTIC IMPRESSION/PLAN: Patient with pneumonia, possible aspiration etiology, has received almost 3 weeks of IV antibiotic therapy. Should be more than enough. Cefepime will be discontinued. Flagyl to continue and we will monitor clinical course closely. MMODL / IJN: [id number] /
[2020-10-24 04:43] LABS: Anisocytosis Slight; Basophils # (A) 0.1 k/uL (0-0.2); Basophils % (A) 1 %; Eosinophils # (A) 0.2 k/uL (0-0.7); Eosinophils % (A) 3 %; HCT 29.1 % (39.0-53.0); HGB 9.3 gm/dL (13.0-17.5); Hypochromasia Slight; Lymphocytes % (A) 11 %; MCH 29.1 pg (25.0-35.0); Mean Platelet Volume 7.8; Monocytes # (A) 0.7 k/uL (0-1.0); Monocytes % (A) 7 %; Neutrophils # (A) 7.4 k/uL (1.3-7.7); Neutrophils % (A) 78 %; Platelet Count 241 k/uL (150-450); RBC 3.19 m/uL (4.30-5.90); RDW 19.2 % (11.5-15.5); WBC 9.5 k/uL (3.8-10.6)
[2020-10-24 05:10] LABS: Glucose,Whole Blood 162 mg/dL (75-99)
[2020-10-24] MEDS: LEVOTHYROXINE 50 MCG TAB PEG/G-TUBE SCH (05:24)
[2020-10-24 05:28] LABS: Albumin 2.4 g/dL (3.5-5.0); Calcium 8.5 mg/dL (8.4-10.2); Potassium 3.9 mmol/L (3.5-5.1); Total Bilirubin 0.6 mg/dL (0.2-1.3); Total Protein 5.6 g/dL (6.3-8.2)
[2020-10-24] MEDS: BUDESONIDE 1 MG/2 ML NEBU INHALATION SCH ×2 (08:05→19:58)
[2020-10-24] MEDS: IPRATROPIUM-ALBUTEROL 3 ML NEB INHALATION SCH ×4 (08:05→19:58)
[2020-10-24] MEDS: LIDOCAINE 5% PATCH TOPICAL SCH (09:12)
[2020-10-24] MEDS: METHYL SALICYLATE/MENTHOL CREAM 5 OZ TOPICAL PRN (09:12)
[2020-10-24] MEDS: metroNIDAZOLE 500 MG TAB PO SCH ×3 (09:13→21:07)
[2020-10-24] MEDS: APIXABAN 5 MG TAB PO SCH ×2 (09:13→20:56)
[2020-10-24] MEDS: ASPIRIN 81 MG PO SCH (09:13)
[2020-10-24] MEDS: AMIODARONE 200 MG TAB PO SCH ×2 (09:13→20:56)
[2020-10-24] MEDS: TAMSULOSIN 0.4 MG CAP.ER.24H PO SCH (09:15)
[2020-10-24] MEDS: METOPROLOL TARTRATE 25 MG TAB PO SCH ×3 (09:15→20:56)
[2020-10-24] MEDS: PSYLLIUM HUSK 100% 6 GM PACKET PO SCH ×2 (09:16→20:56)
[2020-10-24] MEDS: CHOLESTYRAMINE (WITH SUGAR) 4 GM PACKET PO SCH ×2 (09:16→17:54)
[2020-10-24] MEDS: DARBEPOETIN ALFA 40 MCG/0.4 ML SYRINGE SQ SCH (09:16)
[2020-10-24 11:30] LABS: Glucose,Whole Blood 106 mg/dL (75-99)
--- NOTE | 2020-10-24 13:32 | P.PN ---
Subjective Progress Note Date: 10/24/20 CHIEF COMPLAINT: Respiratory distress HISTORY OF PRESENT ILLNESS: Patient seen and examined with Dr. Dempsey. Patient is being followed in regards to his abdominal wound at incision site. Patient remains in the ICU. He is lying in bed. He denies any abdominal pain. Patient is still having high ileostomy output. He remains on Questran, Lomotil and Sandostatin to help slow ileostomy output. Patient is back to nothing by mouth due to aspiration risk. Patient is afebrile. Trach collaring 100%. WBC 9.5 hemoglobin 9.3. Patient does have a decubitus ulcer of the sacrum PHYSICAL EXAM: VITAL SIGNS: Reviewed. GENERAL: Well-developed in no acute distress. HEENT: No sclera icterus. Extraocular movements grossly intact. Moist buccal mucosa. Head is atraumatic, normocephalic. ABDOMEN: Soft. Nondistended. Nontender. Dressing clean dry and intact. Patient has a brownish liquidy stool coming through the ileostomy. NEUROLOGIC: Alert and oriented. Cranial nerves II through XII grossly intact. Skin: sacral pressure ulcer. Edges of the ulcer are helping clean. Evidence of granulation tissue. No drainage. ASSESSMENT: 1. Abdominal wound at surgical incision site. 2. High ileostomy output 3. History of ischemic small bowel with evidence of pneumatosis status post small bowel resection on 07/24/2020. 4. History of intraperitoneal hemorrhage and small bowel ischemia status post exploratory laparotomy, washout of peritoneal cavity and ileostomy with small bowel resection on 08/02/2020 5. 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 Acute hypoxic respiratory failure secondary to pneumonia 7. Sepsis secondary to pneumonia 8. Acute kidney injury 9. chronic Anemia: With known chronic kidney disease and iron deficiency. He did require blood transfusion and IV Iron during this admission 10. Chronic malnutrition secondary to high ileostomy output 11. Unstageable sacral pressure ulcer PLAN: -Continue treatment per wound care service for sacral pressure ulcer -Recommend ileostomy reversal when patient is medically stable -Continue wound care with Aquacel dressing to abdominal wound -Continue Sandostatin, Lomotil and Questran to help with high-volume ileostomy output -Continue supportive care -Continue ICU management -Continue antibiotics per ID Physician Jewelry Technician note has been reviewed by physician. Signing provider agrees with the documented findings, assessment, and plan of care. Objective - Vital Signs Vital signs: Vital Signs Temp 97.8 F 10/24/20 12:00 Pulse 74 10/24/20 12:00 Resp 27 H 10/24/20 12:00 BP 95/61 10/24/20 12:00 Pulse Ox 97 10/24/20 12:00 Intake & Output 10/23/20 10/24/20 10/24/20 18:59 06:59 18:59 Intake Total 1840 2400 450 Output Total 2450 2375 1000 Balance -610 25 -550 Weight 76.3 kg 76.3 kg Intake: IV 700 900 150 Cefepime 2 gm In Sodium 100 100 Chloride 0.9% 100 ml @ 25 mls/hr IVPB Q12HR [facility] Rx #:[id number] Lactated Ringers 1,000 ml 600 800 150 @ 100 mls/hr IV .Q10H [facility] Rx#:[id number] Tube Feeding 1080 1440 270 Other 60 60 30 Output: Urine 700 675 0 Stool 1750 1700 1000 Other: Voiding Method Urinal Urinal - Labs CBC & Chem 7: 10/24/20 03:55 10/24/20 03:55 Labs: Abnormal Lab Results - Last 24 Hours (Table) 10/23/20 10/23/20 10/23/20 Range/Units 17:10 18:01 23:49 RBC (4.30-5.90) m/uL Hgb (13.0-17.5) gm/dL Hct (39.0-53.0) % RDW (11.5-15.5) % Sodium (137-145) mmol/L BUN (9-20) mg/dL Creatinine (0.66-1.25) mg/dL Glucose (74-99) mg/dL POC Glucose (mg/dL) 108 H 158 H 139 H (75-99) mg/dL Total Protein (6.3-8.2) g/dL Albumin (3.5-5.0) g/dL 10/24/20 10/24/20 10/24/20 Range/Units 03:55 03:55 05:09 RBC 3.19 L (4.30-5.90) m/uL Hgb 9.3 L (13.0-17.5) gm/dL Hct 29.1 L (39.0-53.0) % RDW 19.2 H (11.5-15.5) % Sodium 135 L (137-145) mmol/L BUN 72 H (9-20) mg/dL Creatinine 1.72 H (0.66-1.25) mg/dL Glucose 155 H (74-99) mg/dL POC Glucose (mg/dL) 162 H (75-99) mg/dL Total Protein 5.6 L (6.3-8.2) g/dL Albumin 2.4 L (3.5-5.0) g/dL 10/24/20 Range/Units 11:28 RBC (4.30-5.90) m/uL Hgb (13.0-17.5) gm/dL Hct (39.0-53.0) % RDW (11.5-15.5) % Sodium (137-145) mmol/L BUN (9-20) mg/dL Creatinine (0.66-1.25) mg/dL Glucose (74-99) mg/dL POC Glucose (mg/dL) 106 H (75-99) mg/dL Total Protein (6.3-8.2) g/dL Albumin (3.5-5.0) g/dL Microbiology - Last 24 Hours (Table) 10/18/20 09:08 Blood Culture - Final Blood No Growth after 144 hours
--- NOTE | 2020-10-24 15:10 | P.PN ---
Subjective Progress Note Date: 10/24/20 Principal diagnosis: Acute on chronic hypoxic respiratory failure secondary to left lower lobe pneumonia and sepsis. 10/22/2020, the patient was able to tolerate some full liquid diet. We did a bedside swallow evaluation the patient was able to swallow. We will advance his diet today. He remains on a 28% trach collar and he continues to have rest or secretions. No new cultures from his sputum and the last culture was positive for Radha and the patient remains on a combination of IV cefepime and Flagyl. He has a high output ileostomy. He is still on vital AF. He is on Eliquis in addition to metoprolol and amiodarone regarding his atrial fibrillation. His rate is controlled and he is and sinus rhythm for now. Abdominal hematoma is stable. We are still taking care of his stage IV sacral decub ulcer and stage II right ulcer. His abdominal wound is also healing. No fever. Hemoglobin is stable at 9.5. White cell count stable at 12.7. He has adequate strength in his upper extremity. He seems to be getting stronger on a daily basis. Patient was reevaluated today on 10/23/2020, remains in the ICU, he is on 28% trach collar. Remains on tube feeds, and full liquid diet, however the patient is aspirating according to the speech therapist, and he failed his swallow evaluation, hence I would hold his liquid diet for now. And continue enteral feeding via PEG tube. His IV fluid is all are at 50 mL per hour. Patient seems to be in no distress, however he seems to be concerned about his sacral decubitus ulcer which is a stage III or 4, on his coccyx, and that being addressed by wound care staff. And also seen by Dr. Dempsey no debridement is recommended. Chest x-ray showed left lower lobe atelectasis and small pleural effusion. CBC is relatively normal. The left lites are normal. However his BUN is 67 creatinine is 1.64 Patient was reevaluated today on 10/24/2020, remains in the ICU, remains on 28% trach collar, remains on Flagyl for his aspiration pneumonia, patient is supposed to have repeat swallow evaluation. His IV fluid is all are at 100 mL per hour. Patient seems to be doing better today compared to the last few days. Continues to have wound care for his coccyx stage III decubitus ulcer. Patient continues to have significant amount of copious amount of output from his ileostomy almost 4.3 L in the last 24 hours. And IV fluid was increased today. I held his oral feedings yesterday because of potential aspiration, awaiting the repeat swallow evaluation. Clinically however the patient seems to be doing better. CBC is relatively normal left lites are normal BUN is 72 creatinine is 1.72. Objective - Vital Signs Vital signs: Vital Signs Temp 97.8 F 10/24/20 12:00 Pulse 74 10/24/20 12:00 Resp 27 H 10/24/20 12:00 BP 95/61 10/24/20 12:00 Pulse Ox 97 10/24/20 12:00 Intake & Output 10/23/20 10/24/20 10/24/20 18:59 06:59 18:59 Intake Total 1840 2400 450 Output Total 2450 2375 1000 Balance -610 25 -550 Weight 76.3 kg 76.3 kg Intake: IV 700 900 150 Cefepime 2 gm In Sodium 100 100 Chloride 0.9% 100 ml @ 25 mls/hr IVPB Q12HR [facility] Rx #:[id number] Lactated Ringers 1,000 ml 600 800 150 @ 100 mls/hr IV .Q10H [facility] Rx#:[id number] Tube Feeding 1080 1440 270 Other 60 60 30 Output: Urine 700 675 0 Stool 1750 1700 1000 Other: Voiding Method Urinal Urinal - Exam Physical Exam: Revealed 80-year-old white male pleasant, on trach collar, 28% FiO2 HEENT:[Neck is supple.] [No neck masses.] [No thyromegaly.] [No JVD.] Tracheostomy is intact. Chest: Symmetrical chest expansion, crackles and rhonchi noted bilaterally especially at the left base Cardiac Exam: [Normal S1 and S2, no S3 gallop, no murmur.] Abdomen: [Soft, nontender, no megaly, no rebound, no guarding, normal bowel sounds.] Surgical scar is noted in the mid abdomen, significant output is noted from his right ileostomy, patient has a fecal management system applied. Extremities: [No clubbing, 1+ bipedal edema, no cyanosis.] Neurological Exam: Alert and oriented 3. [No focal neurologic deficit.] Psychiatric: Normal mood, affect and normal mental status examination. Skin: No rashes, surgical scar noted in the abdomen, some minimal drainage noted, clean dressing , stage III sacral decubitus ulcer 35 cm noted. - Labs CBC & Chem 7: 10/24/20 03:55 10/24/20 03:55 Labs: Abnormal Lab Results - Last 24 Hours (Table) 10/23/20 10/23/20 10/23/20 Range/Units 17:10 18:01 23:49 RBC (4.30-5.90) m/uL Hgb (13.0-17.5) gm/dL Hct (39.0-53.0) % RDW (11.5-15.5) % Sodium (137-145) mmol/L BUN (9-20) mg/dL Creatinine (0.66-1.25) mg/dL Glucose (74-99) mg/dL POC Glucose (mg/dL) 108 H 158 H 139 H (75-99) mg/dL Total Protein (6.3-8.2) g/dL Albumin (3.5-5.0) g/dL 10/24/20 10/24/20 10/24/20 Range/Units 03:55 03:55 05:09 RBC 3.19 L (4.30-5.90) m/uL Hgb 9.3 L (13.0-17.5) gm/dL Hct 29.1 L (39.0-53.0) % RDW 19.2 H (11.5-15.5) % Sodium 135 L (137-145) mmol/L BUN 72 H (9-20) mg/dL Creatinine 1.72 H (0.66-1.25) mg/dL Glucose 155 H (74-99) mg/dL POC Glucose (mg/dL) 162 H (75-99) mg/dL Total Protein 5.6 L (6.3-8.2) g/dL Albumin 2.4 L (3.5-5.0) g/dL 10/24/20 Range/Units 11:28 RBC (4.30-5.90) m/uL Hgb (13.0-17.5) gm/dL Hct (39.0-53.0) % RDW (11.5-15.5) % Sodium (137-145) mmol/L BUN (9-20) mg/dL Creatinine (0.66-1.25) mg/dL Glucose (74-99) mg/dL POC Glucose (mg/dL) 106 H (75-99) mg/dL Total Protein (6.3-8.2) g/dL Albumin (3.5-5.0) g/dL Microbiology - Last 24 Hours (Table) 10/18/20 09:08 Blood Culture - Final Blood No Growth after 144 hours Assessment and Plan Assessment: Impression: Hypotension secondary to sepsis secondary to left lower lobe pneumonia, also suspect significant component of hypovolemia in addition to his sepsis, strongly doubt septic shock. Acute on chronic hypoxic respiratory failure secondary to pneumonia and underlying COPD. Acute left lower lobe pneumonia, secondary to MSSA, and Klebsiella pneumonia Sepsis secondary to pneumonia involving the left lower lobe. Acute on chronic kidney injury secondary to sepsis. Moderate severe COPD. History of triple-vessel coronary artery disease, bypass surgery on 07/18/2020 with multiple postoperative complications History of tracheostomy mostly because of failure to wean. Benign essential hypertension. Type 2 diabetes. Dyslipidemia. Chronic atrial fibrillation. On amiodarone and on anticoagulation therapy History of hypothyroidism. History of ileostomy on 08/02/2020. Chronic anemia Stage IV decubitus ulcer. Stage II pressure ulcer on the right heel. Recommendation: Increase IV fluids/LR at 100 mL per hour. Continue present supportive care measures. Continue continue Flagyl, off cefepime. Modified barium swallow. Continue tracheostomy care. Physical therapy. Continue GI and DVT prophylaxis. Continue bronchodilators. Continue amiodarone. Continue midodrine Close monitoring of fluid output from his ileostomy Consider TPN in addition to his enteral feeding. We'll continue to follow. Time with Patient: Less than 30
--- NOTE | 2020-10-24 15:44 | FL ---
EXAMINATION TYPE: FL barium swallow w video DATE OF EXAM: 10/24/2020 MODIFIED SWALLOW / DEGLUTITION STUDY CLINICAL HISTORY: Dysphagia. TECHNIQUE: Deglutition study is performed utilizing thin liquid barium, and honey and nectar thick l iquid barium. 1.03 minutes of fluoro time and 0 images obtained. COMPARISON: Prior modified barium swallow report October 13, 2020. FINDINGS: The oral and pharyngeal phases show satisfactory initiation with poor epiglottis inversion. There is silent aspiration with all modalities tested. Moderate to severe pharyngeal residue was a ppreciated with more viscous modalities. The tracheostomy tube is redemonstrated. IMPRESSION: Persistent recurrent silent aspiration. Similar findings noted on prior report. Please re polo to speech therapist notes for further details if necessary.
--- NOTE | 2020-10-24 16:19 | PN ---
PROGRESS NOTE Patient is seen for followup for acute kidney injury. Patient's renal function has been slowly deteriorating over the last couple of days. He has had large amount of output. He has been maintained on fluids at 50 mL an hour which was just increased. He has had a lot of output from his ostomy. PHYSICAL EXAMINATION: On examination today, blood pressure was 95/61, heart rate 74 per minute. Patient is afebrile. EXAMINATION OF THE HEART: S1, S2. EXAMINATION OF LUNGS: Decreased breath sounds at bases. Abdomen is soft, nontender. Examination of lower extremities shows no evidence of edema. FILM MOUNTER exam grossly intact. LABS: Labs show sodium 135, potassium 3.9, BUN 72, creatinine 1.72. ASSESSMENT: 1. Acute kidney injury, prerenal. Increase IV fluids. IV fluids have been increased to 100 mL an hour as patient has had large output and is in significant negative balance. 2. Sepsis from pneumonia, currently improved. 3. Acute on chronic hypoxic respiratory failure with underlying chronic obstructive pulmonary disease. 4. Left lower lobe pneumonia secondary to MSSA and Klebsiella pneumoniae, which grew in sputum culture. 5. History of explorative laparotomy for ischemic bowel in July, status post ileostomy. PLAN: Agree with increasing IV fluids. Repeat labs in a.m. MMODL / IJN: [id number] /
[2020-10-24 17:43] LABS: Glucose,Whole Blood 132 mg/dL (75-99)
--- NOTE | 2020-10-24 20:37 | P.PN ---
Progress Note - Text Progress Note Date: 10/24/20 Interval history: This is a pleasant 80 years old male with past medical history of coronary art fuad disease, COPD, diabetes mellitus, hyperlipidemia, hypertension, hypothyroidism, coronary artery disease status post cardiac cath and stent placement. He recently underwent double coronary artery bypass grafting for his triple-vessel coronary artery disease. He was in the hospital from 07/18/20- 08/25/2020 pt has tracheostomhy and PEG tube , Information were obtained with the help of at bedside, he presents with confusion, and a lot of secretion Why he states that after been discharged from acute and he went to [facility] aren't states therefore one month and 5 days and then he was discharged a few days ago to residential at [facility] on Friday, however over the weekend he has more congestion, he has weak cough and needed frequent suctioning, patient was able to talk weekly his little confused but he can't communicate through gesture, he denies pain but he is tachypneic He has tracheostomy, PEG tube and try to colostomy. Admitted with-hypotension secondary to severe sepsis secondary to pneumonia, aspiration pneumonia, acute hypoxic respiratory failure, acute kidney injury secondary to ATN, elevated sodium, increased lactic acid, elevated troponin felt to be from tachycardia. Recent history of intraperitoneal hemorrhage status post laboratory with washout and ileostomy on 08/02/2020. Tracheostomy. C. diff ruled out. Recurrent A. fib. She was able to talk after covering his tracheostomy. Patient started on full liquids. Today-ICU: On trach shield with secretions. Underwent barium study today. Did show silent aspiration. Remains nothing by mouth. 2 feeding continuous. Patient is communicating with covering his tracheostomy. Still putting on a lot of liquid stool Review of systems: Was done for constitutional, cardiovascular, GI, pulmonary. relevant finding as above Active Medications Acetaminophen (Acetaminophen Tab 325 Mg Tab) 650 mg PO Q6HR PRN PRN Reason: Fever and/ or Pain Last Admin: 10/24/20 00:38 Dose: 650 mg Documented by: Hydrocodone Bitart/Acetaminophen (Hydrocodone/Apap 5-325mg 1 Each Tab) 1 each PO Q6HR PRN PRN Reason: Pain Last Admin: 10/24/20 10:12 Dose: 1 each Documented by: Albuterol/Ipratropium (Ipratropium-Albuterol 3 Ml Neb) 3 ml INHALATION RT-QID [facility] Last Admin: 10/24/20 19:58 Dose: 3 ml Documented by: Albuterol/Ipratropium (Ipratropium-Albuterol 3 Ml Neb) 3 ml INHALATION RT-Q2H PRN PRN Reason: Shortness Of Breath Or Wheezing Last Admin: 10/03/20 21:27 Dose: 3 ml Documented by: Amiodarone HCl (Amiodarone 200 Mg Tab) 400 mg PO BID [facility] Last Admin: 10/24/20 09:13 Dose: 400 mg Documented by: Apixaban (Apixaban 5 Mg Tab) 5 mg PO BID [facility] Last Admin: 10/24/20 09:13 Dose: 5 mg Documented by: Aspirin (Aspirin 81 Mg) 81 mg PO DAILY [facility] Last Admin: 10/24/20 09:13 Dose: 81 mg Documented by: Atorvastatin Calcium (Atorvastatin 40 Mg Tab) 40 mg PEG/G-TUBE HS@2000 [facility] Last Admin: 10/23/20 21:54 Dose: 40 mg Documented by: Budesonide (Budesonide 1 Mg/2 Ml Nebu) 1 mg INHALATION RT-BID [facility] Last Admin: 10/24/20 19:58 Dose: 1 mg Documented by: Cholestyramine Resin (Cholestyramine (With Sugar) 4 Gm Packet) 4 gm PO BID@1000,1800 [facility] Last Admin: 10/24/20 17:54 Dose: 4 gm Documented by: Darbepoetin Alex (Darbepoetin Alex 40 Mcg/0.4 Ml Syringe) 40 mcg SQ Q7D [facility] Last Admin: 10/24/20 09:16 Dose: 40 mcg Documented by: Diphenoxylate HCl/Atropine (Diphenox-Atrop 2.5-0.025 Mg 1 Each Tab) 1 each PO Q6HR [facility] Last Admin: 10/24/20 17:53 Dose: 1 each Documented by: Famotidine (Famotidine 20 Mg Tab) 20 mg PO HS [facility] Last Admin: 10/23/20 21:54 Dose: 20 mg Documented by: Lactated Ringer's (Lactated Ringers) 1,000 mls @ 100 mls/hr IV .Q10H [facility] Last Admin: 10/23/20 09:12 Dose: 50 mls/hr Documented by: Insulin Aspart (Insulin Aspart (Novolog) 100 Unit/Ml Vial) 0 unit SQ Q6H [facility]; Protocol Last Admin: 10/24/20 17:43 Dose: Not Given Documented by: Levothyroxine Sodium (Levothyroxine 50 Mcg Tab) 50 mcg PEG/G-TUBE DAILY@0600 [facility] Last Admin: 10/24/20 05:24 Dose: 50 mcg Documented by: Lidocaine (Lidocaine 5% Patch) 1 patch TOPICAL DAILY [facility] Last Admin: 10/24/20 09:12 Dose: 1 patch Documented by: Melatonin (Melatonin 3 Mg Tablet) 3 mg PO HS PRN PRN Reason: Insomnia Last Admin: 10/23/20 21:54 Dose: 3 mg Documented by: Methyl Salicylate (Methyl Salicylate/Menthol Cream 5 Oz) 1 applic TOPICAL Q6HR PRN PRN Reason: Pain Last Admin: 10/24/20 09:12 Dose: 1 applic Documented by: Metoprolol Tartrate (Metoprolol Tartrate 25 Mg Tab) 25 mg PO TID [facility] Last Admin: 10/24/20 17:53 Dose: 25 mg Documented by: Metronidazole (Metronidazole 500 Mg Tab) 500 mg PO TID [facility] Last Admin: 10/24/20 17:54 Dose: 500 mg Documented by: Midodrine (Midodrine 5 Mg Tab) 10 mg PO Q8HR [facility] Last Admin: 10/24/20 17:53 Dose: 10 mg Documented by: Miscellaneous Information (Potassium Replacement Protocol 1 Each Misc) 1 each MISCELLANE DAILY PRN; Protocol PRN Reason: Per Protocol Naloxone HCl (Naloxone 0.4 Mg/Ml 1 Ml Vial) 0.2 mg IV Q2M PRN PRN Reason: Opioid Reversal Octreotide Acetate (Octreotide 100 Mcg/Ml Inj) 100 mcg SQ Q8HR [facility] Last Admin: 10/24/20 17:53 Dose: 100 mcg Documented by: Ondansetron HCl (Ondansetron 4 Mg/2 Ml Vial) 4 mg IVP Q8HR PRN PRN Reason: Nausea And Vomiting Last Admin: 10/11/20 03:52 Dose: 4 mg Documented by: Psyllium Hydrophilic Mucilloid (Psyllium Husk 100% 6 Gm Packet) 6 gm PO BID [facility] Last Admin: 10/24/20 09:16 Dose: 6 gm Documented by: Quetiapine Fumarate (Quetiapine 25 Mg Tab) 25 mg PO HS [facility] Last Admin: 10/23/20 21:54 Dose: 25 mg Documented by: Tamsulosin HCl (Tamsulosin 0.4 Mg Cap.Er.24h) 0.4 mg PO PC-BRKFST [facility] Last Admin: 10/24/20 09:15 Dose: 0.4 mg Documented by: On examination: VITAL SIGNS: 97.8, 74, 27, 95/61, 97% on trach collar FiO2 28% GENERAL APPEARANCE: Reclining bed, awake, tired HEENT:Trach collar with shield EYES: Pupils equal. Conjunctiva normal. NECK: JVD not raised. Mass not palpable. RESPIRATORY: Respiratory effort increased Lungs decreased breath sounds CARDIOVASCULAR: First and second sounds normal. No edema. ABDOMEN: Soft. Liver and spleen not palpable. Ileostomy-with yellow stools . Left abdominal hematoma PSYCHIATRY: Alert and oriented x3. Mood and affect tired INVESTIGATIONS, reviewed in the clinical context: October 24: WBC 9.5 hemoglobin 9.3 platelets 241 potassium 3.9 creatinine 1.7 to October 23: WBC 10.4 hemoglobin 9.4 platelets 222 bun 67 creatinine 1.64 October 22: WBC 12.7 hemoglobin 9.5 potassium 3.6 creatinine 1.49 October 21: WBC 30.3 October 20: White count 13.2 hemoglobin 9.4 platelets 206 potassium 4 creatinine 1.48 White count 7.1 hemoglobin 8.7 platelets 256 potassium 3.8 bicarbonate 20 bun 33 creatinine 3.17 Sputum culture-positive for Staphylococcus aureus MSSA, Klebsiella Pneumoniae Previous labs: White count 16.6 hemoglobin 9.9 platelets 584 bun 100 creatinine 3.18 Coronavirus PCR-not detected Renal ultrasound-normal bilateral renal ultrasound Assessment and plan: -Hypotensive shock -better. remains off norepinephrine IV , on midodrine- -Abdominal wound at surgical incision site, followed by general surgery with local dressing -History of ischemic small bowel with evidence of pneumatosis status post small bowel resection on 07/24/2020 -Ileostomy for intraperitoneal hemorrhage and small bowel ischemia status post exploratory laboratory or short of periportal cavity on 08/02/2020 -Coronary artery disease with bypass in July 2020, and Lopressor. Aspirin -Acute hypoxic respiratory failure secondary to pneumonia, continue with oxygen supplementation, currently with the trach collar, 28% -Anemia secondary to chronic kidney disease , follow H&H -Acute kidney injury secondary to ATN secondary to hypotension and hemodynamic instability - Creatinine 1.48 -Chronic kidney disease stage III the baseline creatinine of 1.2-1.5 secondary to nephrosclerosis -Paroxysmal atrial fibrillation with rapid ventricular rate on amiodarone by mouth, Lopressor, converted to sinus rhythm. Patient has been in and out of rapid A. fib. -Hypernatremia secondary to decreased oral water intake. Receiving free water- improved -Possible aspiration pneumonia, sputum positive for MSSA and Klebsiella pneumoniae., Causing sepsis IV Zosyn-changed to IV cefepime-completed course -Silent aspiration detected by barium study. 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 Flagyl and subcu Sandostatin.
[2020-10-24] MEDS: FAMOTIDINE 20 MG TAB PO SCH (20:56)
[2020-10-24] MEDS: ATORVASTATIN 40 MG TAB PEG/G-TUBE SCH (20:56)
[2020-10-24] MEDS: LACTATED RINGERS 1,000 ML IV SCH (20:56)
[2020-10-24] MEDS: QUEtiapine 25 MG TAB PO SCH (21:07)
[2020-10-24] MEDS: MELATONIN 3 MG TABLET PO PRN (21:37)
--- NOTE | 2020-10-24 22:48 | PN ---
PROGRESS NOTE DATE OF SERVICE: 10/24/2020 REASON FOR FOLLOWUP: 1. Pneumonia. 2. High-output ileostomy. INTERVAL HISTORY: The patient is currently afebrile. Patient is breathing comfortably. Denies having any chest pain or shortness of breath. Occasional cough. No abdominal pain. Still has significant output from his ileostomy. PHYSICAL EXAMINATION: Blood pressure 110/66, pulse of 73, temperature 98.1. He is 98% on trach collar. General description is an elderly male lying in bed in no distress. Respiratory system: Unlabored breathing, decreased breath sounds in the base, with no wheeze. Heart S1, S2. Regular rate and rhythm. ABDOMEN: Soft, no tenderness. LABS: Hemoglobin 9.1, white count 9.5. BUN of 72, creatinine 1.72. DIAGNOSTIC IMPRESSION AND PLAN: Patient with MSSA Klebsiella pneumonia that has been adequately treated. Received about 3 weeks of antibiotic therapy. Currently monitored closely off antibiotic therapy. He is afebrile. normal and continue supportive care. MMODL / IJN: [id number] /
[2020-10-24 23:52] LABS: Glucose,Whole Blood 148 mg/dL (75-99)
[2020-10-25] MEDS: INSULIN ASPART (NovoLOG) 100 UNIT/ML VIAL SQ SCH ×4 (00:01→19:00)
[2020-10-25 04:00] LABS: Anisocytosis Slight; Basophils % (A) 1 %; Eosinophils # (A) 0.2 k/uL (0-0.7); Eosinophils % (A) 3 %; HCT 29.2 % (39.0-53.0); HGB 9.6 gm/dL (13.0-17.5); Lymphocytes % (A) 12 %; MCH 30.3 pg (25.0-35.0); MCHC 32.7 g/dL (31.0-37.0); MCV 92.5 fL (80.0-100.0); Macrocytosis Slight; Mean Platelet Volume 7.8; Monocytes # (A) 0.8 k/uL (0-1.0); Monocytes % (A) 10 %; Neutrophils # (A) 6.4 k/uL (1.3-7.7); Neutrophils % (A) 74 %; Platelet Count 234 k/uL (150-450); RBC 3.16 m/uL (4.30-5.90); WBC 8.6 k/uL (3.8-10.6)
[2020-10-25 04:16] LABS: Albumin 2.5 g/dL (3.5-5.0); Calcium 8.5 mg/dL (8.4-10.2); Potassium 3.8 mmol/L (3.5-5.1); Total Bilirubin 0.5 mg/dL (0.2-1.3); Total Protein 5.5 g/dL (6.3-8.2)
[2020-10-25 05:34] LABS: Glucose,Whole Blood 168 mg/dL (75-99)
[2020-10-25] MEDS: LEVOTHYROXINE 50 MCG TAB PEG/G-TUBE SCH (06:04)
[2020-10-25] MEDS: DIPHENOX-ATROP 2.5-0.025 MG 1 EACH TAB PO SCH ×4 (06:04→17:20)
[2020-10-25] MEDS: LACTATED RINGERS 1,000 ML IV SCH ×2 (06:04→17:20)
[2020-10-25] MEDS: IPRATROPIUM-ALBUTEROL 3 ML NEB INHALATION SCH ×4 (07:42→20:27)
[2020-10-25] MEDS: BUDESONIDE 1 MG/2 ML NEBU INHALATION SCH ×2 (07:43→20:27)
[2020-10-25] MEDS: ASPIRIN 81 MG PO SCH (08:38)
[2020-10-25] MEDS: APIXABAN 5 MG TAB PO SCH ×2 (08:38→21:13)
[2020-10-25] MEDS: METOPROLOL TARTRATE 25 MG TAB PO SCH ×3 (08:38→21:12)
[2020-10-25] MEDS: MIDODRINE 5 MG TAB PO SCH ×3 (08:38→17:21)
[2020-10-25] MEDS: PSYLLIUM HUSK 100% 6 GM PACKET PO SCH ×2 (08:38→21:13)
[2020-10-25] MEDS: AMIODARONE 200 MG TAB PO SCH ×2 (08:38→21:12)
[2020-10-25] MEDS: metroNIDAZOLE 500 MG TAB PO SCH ×3 (08:38→21:13)
[2020-10-25] MEDS: TAMSULOSIN 0.4 MG CAP.ER.24H PO SCH (08:38)
[2020-10-25] MEDS: CHOLESTYRAMINE (WITH SUGAR) 4 GM PACKET PO SCH ×4 (08:39→21:13)
[2020-10-25] MEDS: LIDOCAINE 5% PATCH TOPICAL SCH (08:39)
[2020-10-25] MEDS: OCTREOTIDE 100 MCG/ML INJ SQ SCH ×3 (09:16→17:20)
[2020-10-25] MEDS: ACETAMINOPHEN TAB 325 MG TAB PO PRN ×2 (09:58→21:13)
[2020-10-25 12:02] LABS: Glucose,Whole Blood 142 mg/dL (75-99)
--- NOTE | 2020-10-25 13:04 | P.PN ---
Subjective Progress Note Date: 10/25/20 CHIEF COMPLAINT: Respiratory distress HISTORY OF PRESENT ILLNESS: Patient seen and examined with Dr. Dempsey. Patient is being followed in regards to his abdominal wound at incision site. Patient remains in the ICU. He is lying in bed. He denies any abdominal pain. Patient is still having high ileostomy output. He remains on Questran, Lomotil and Sandostatin to help slow ileostomy output. Patient is back to nothing by mouth due to aspiration risk. Patient is afebrile. Trach collaring 100%. WBC 8.6 hemoglobin 9.6. Patient does have a decubitus ulcer of the sacrum PHYSICAL EXAM: VITAL SIGNS: Reviewed. GENERAL: Well-developed in no acute distress. HEENT: No sclera icterus. Extraocular movements grossly intact. Moist buccal mucosa. Head is atraumatic, normocephalic. ABDOMEN: Soft. Nondistended. Nontender. Dressing clean dry and intact. Patient has a brownish liquidy stool coming through the ileostomy. NEUROLOGIC: Alert and oriented. Cranial nerves II through XII grossly intact. Skin: sacral pressure ulcer. Edges of the ulcer are helping clean. Evidence of granulation tissue. No drainage. ASSESSMENT: 1. Abdominal wound at surgical incision site. 2. High ileostomy output 3. History of ischemic small bowel with evidence of pneumatosis status post small bowel resection on 07/24/2020. 4. History of intraperitoneal hemorrhage and small bowel ischemia status post exploratory laparotomy, washout of peritoneal cavity and ileostomy with small bowel resection on 08/02/2020 5. 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 Acute hypoxic respiratory failure secondary to pneumonia 7. Sepsis secondary to pneumonia 8. Acute kidney injury 9. chronic Anemia: With known chronic kidney disease and iron deficiency. He did require blood transfusion and IV Iron during this admission 10. Chronic malnutrition secondary to high ileostomy output 11. Unstageable sacral pressure ulcer PLAN: -Continue treatment per wound care service for sacral pressure ulcer -Recommend ileostomy reversal when patient is medically stable -Continue wound care with Aquacel dressing to abdominal wound -Continue Sandostatin, Lomotil and Questran to help with high-volume ileostomy output -Continue supportive care -Continue ICU management -Continue antibiotics per ID Physician Casting Machine Service Operator note has been reviewed by physician. Signing provider agrees with the documented findings, assessment, and plan of care. Objective - Vital Signs Vital signs: Vital Signs Temp 98.6 F 10/25/20 08:00 Pulse 72 10/25/20 11:50 Resp 20 10/25/20 08:00 BP 121/46 10/25/20 08:00 Pulse Ox 95 10/25/20 08:00 Intake & Output 10/24/20 10/25/20 10/25/20 18:59 06:59 18:59 Intake Total 1250 1760 720 Output Total 2200 1450 Balance -950 310 720 Weight 76.3 kg 76.4 kg Intake: IV 950 800 Lactated Ringers 1,000 ml 950 800 @ 100 mls/hr IV .Q10H [facility] Rx#:[id number] Tube Feeding 270 720 720 Other 30 240 Output: Urine 400 350 Stool 1800 1100 Other: Voiding Method Urinal Urinal Urinal - Labs CBC & Chem 7: 10/25/20 03:22 10/25/20 03:22 Labs: Abnormal Lab Results - Last 24 Hours (Table) 10/24/20 10/24/20 10/25/20 Range/Units 17:41 23:50 03:22 RBC 3.16 L (4.30-5.90) m/uL Hgb 9.6 L (13.0-17.5) gm/dL Hct 29.2 L (39.0-53.0) % RDW 19.0 H (11.5-15.5) % Sodium (137-145) mmol/L BUN (9-20) mg/dL Creatinine (0.66-1.25) mg/dL Glucose (74-99) mg/dL POC Glucose (mg/dL) 132 H 148 H (75-99) mg/dL Total Protein (6.3-8.2) g/dL Albumin (3.5-5.0) g/dL 10/25/20 10/25/20 10/25/20 Range/Units 03:22 05:32 12:00 RBC (4.30-5.90) m/uL Hgb (13.0-17.5) gm/dL Hct (39.0-53.0) % RDW (11.5-15.5) % Sodium 134 L (137-145) mmol/L BUN 70 H (9-20) mg/dL Creatinine 1.78 H (0.66-1.25) mg/dL Glucose 131 H (74-99) mg/dL POC Glucose (mg/dL) 168 H 142 H (75-99) mg/dL Total Protein 5.5 L (6.3-8.2) g/dL Albumin 2.5 L (3.5-5.0) g/dL Microbiology - Last 24 Hours (Table) 10/18/20 09:08 Blood Culture - Final Blood No Growth after 144 hours
--- NOTE | 2020-10-25 14:09 | PN ---
PROGRESS NOTE The patient is seen for followup for acute kidney injury. He is currently awake, comfortable, not in any acute distress. The patient's IV fluids have been increased secondary to increased losses from his ostomy. He denies any significant complaints. PHYSICAL EXAMINATION: On examination today, blood pressure was 121/46, heart rate 70 per minute. He is afebrile. EXAMINATION OF THE HEART: S1, S2. EXAMINATION OF THE LUNGS: Bilateral breath sounds are heard. Abdomen is soft, nontender. Examination of lower extremities shows no significant edema. FUND CONTROLLER exam grossly intact. LABS: Labs show sodium 134, potassium 3.8, BUN 70, creatinine 1.78, hemoglobin 9.6 g/dL. ASSESSMENT: 1. Acute kidney injury prerenal currently with increased IV fluids, expect improvement with ongoing hydration. 2. Status post sepsis from pneumonia. 3. Acute on chronic hypoxic respiratory failure with underlying chronic obstructive pulmonary disease, currently off the vent. 4. History of explorative laparotomy for ischemic bowel in July, status post ileostomy. PLAN: Continue increased IV fluids. Repeat labs in a.m. Avoid nephrotoxic agents. MMODL / IJN: [id number] /
--- NOTE | 2020-10-25 14:25 | P.PN ---
Subjective Progress Note Date: 10/25/20 Principal diagnosis: Acute on chronic hypoxic respiratory failure secondary to left lower lobe pneumonia and sepsis. 10/22/2020, the patient was able to tolerate some full liquid diet. We did a bedside swallow evaluation the patient was able to swallow. We will advance his diet today. He remains on a 28% trach collar and he continues to have rest or secretions. No new cultures from his sputum and the last culture was positive for Radha and the patient remains on a combination of IV cefepime and Flagyl. He has a high output ileostomy. He is still on vital AF. He is on Eliquis in addition to metoprolol and amiodarone regarding his atrial fibrillation. His rate is controlled and he is and sinus rhythm for now. Abdominal hematoma is stable. We are still taking care of his stage IV sacral decub ulcer and stage II right ulcer. His abdominal wound is also healing. No fever. Hemoglobin is stable at 9.5. White cell count stable at 12.7. He has adequate strength in his upper extremity. He seems to be getting stronger on a daily basis. Patient was reevaluated today on 10/23/2020, remains in the ICU, he is on 28% trach collar. Remains on tube feeds, and full liquid diet, however the patient is aspirating according to the speech therapist, and he failed his swallow evaluation, hence I would hold his liquid diet for now. And continue enteral feeding via PEG tube. His IV fluid is all are at 50 mL per hour. Patient seems to be in no distress, however he seems to be concerned about his sacral decubitus ulcer which is a stage III or 4, on his coccyx, and that being addressed by wound care staff. And also seen by Dr. Dempsey no debridement is recommended. Chest x-ray showed left lower lobe atelectasis and small pleural effusion. CBC is relatively normal. The left lites are normal. However his BUN is 67 creatinine is 1.64 Patient was reevaluated today on 10/24/2020, remains in the ICU, remains on 28% trach collar, remains on Flagyl for his aspiration pneumonia, patient is supposed to have repeat swallow evaluation. His IV fluid is all are at 100 mL per hour. Patient seems to be doing better today compared to the last few days. Continues to have wound care for his coccyx stage III decubitus ulcer. Patient continues to have significant amount of copious amount of output from his ileostomy almost 4.3 L in the last 24 hours. And IV fluid was increased today. I held his oral feedings yesterday because of potential aspiration, awaiting the repeat swallow evaluation. Clinically however the patient seems to be doing better. CBC is relatively normal left lites are normal BUN is 72 creatinine is 1.72. Patient was reevaluated today on 10/25/2020, remains in the ICU, remains on trach collar at 28%, remains on all are at 100 mL per hour, remains on enteral feeding via PEG tube, continues to have significant output from his colostomy. Patient had about 2.90 L over the last 24 hours. Reevaluated yesterday again by speech therapy, patient is clearly having silent aspiration, and recommended that we continue to hold oral feedings for now. Continue enteral feeding via PEG tube. Multiple maneuvers have been attempted to control his output from the colostomy, but none of it seems to work. Hence I suggested we keep fluids at the same rate. And continue enteral feeding. Labs today showed a relatively normal CBC is relatively normal electrolytes, BUN remains at 70 creatinine is 1.78. Objective - Vital Signs Vital signs: Vital Signs Temp 98.0 F 10/25/20 12:00 Pulse 80 10/25/20 12:00 Resp 24 10/25/20 12:00 BP 98/54 10/25/20 12:00 Pulse Ox 94 L 10/25/20 12:00 Intake & Output 10/24/20 10/25/20 10/25/20 18:59 06:59 18:59 Intake Total 1250 1760 1520 Output Total 2200 1450 400 Balance -301 605 8270 Weight 76.3 kg 76.4 kg Intake: IV 950 800 800 Lactated Ringers 1,000 ml 950 800 800 @ 100 mls/hr IV .Q10H [facility] Rx#:[id number] Tube Feeding 270 720 720 Other 30 240 Output: Urine 400 350 400 Stool 1800 1100 Other: Voiding Method Urinal Urinal Urinal - Exam Physical Exam: Revealed 80-year-old white male pleasant, on trach collar, 28% FiO2 HEENT:[Neck is supple.] [No neck masses.] [No thyromegaly.] [No JVD.] Tracheo stomy is intact. Chest: Symmetrical chest expansion, crackles and rhonchi noted bilaterally especially at the left base Cardiac Exam: [Normal S1 and S2, no S3 gallop, no murmur.] Abdomen: [Soft, nontender, no megaly, no rebound, no guarding, normal bowel sounds.] Surgical scar is noted in the mid abdomen, significant output is noted from his right ileostomy, patient has a fecal management system applied. Extremities: [No clubbing, 1+ bipedal edema, no cyanosis.] Neurological Exam: Alert and oriented 3. [No focal neurologic deficit.] Psychiatric: Normal mood, affect and normal mental status examination. Skin: No rashes, surgical scar noted in the abdomen, some minimal drainage noted, clean dressing , stage III sacral decubitus ulcer 35 cm noted. - Labs CBC & Chem 7: 10/25/20 03:10/25/20 03:22 Labs: Abnormal Lab Results - Last 24 Hours (Table) 10/24/20 10/24/20 10/25/20 Range/Units 17:41 23:50 03:22 RBC 3.16 L (4.30-5.90) m/uL Hgb 9.6 L (13.0-17.5) gm/dL Hct 29.2 L (39.0-53.0) % RDW 19.0 H (11.5-15.5) % Sodium (137-145) mmol/L BUN (9-20) mg/dL Creatinine (0.66-1.25) mg/dL Glucose (74-99) mg/dL POC Glucose (mg/dL) 132 H 148 H (75-99) mg/dL Total Protein (6.3-8.2) g/dL Albumin (3.5-5.0) g/dL 10/25/20 10/25/20 10/25/20 Range/Units 03:22 05:32 12:00 RBC (4.30-5.90) m/uL Hgb (13.0-17.5) gm/dL Hct (39.0-53.0) % RDW (11.5-15.5) % Sodium 134 L (137-145) mmol/L BUN 70 H (9-20) mg/dL Creatinine 1.78 H (0.66-1.25) mg/dL Glucose 131 H (74-99) mg/dL POC Glucose (mg/dL) 168 H 142 H (75-99) mg/dL Total Protein 5.5 L (6.3-8.2) g/dL Albumin 2.5 L (3.5-5.0) g/dL Microbiology - Last 24 Hours (Table) 10/18/20 09:08 Blood Culture - Final Blood No Growth after 144 hours Assessment and Plan Assessment: Impression: Hypotension secondary to sepsis secondary to left lower lobe pneumonia, also suspect significant component of hypovolemia in addition to his sepsis, strongly doubt septic shock. Acute on chronic hypoxic respiratory failure secondary to pneumonia and underlying COPD. Acute left lower lobe pneumonia, secondary to MSSA, and Klebsiella pneumonia Sepsis secondary to pneumonia involving the left lower lobe. Acute on chronic kidney injury secondary to sepsis. Moderate severe COPD. History of triple-vessel coronary artery disease, bypass surgery on 07/18/2020 with multiple postoperative complications History of tracheostomy mostly because of failure to wean. Benign essential hypertension. Type 2 diabetes. Dyslipidemia. Chronic atrial fibrillation. On amiodarone and on anticoagulation therapy History of hypothyroidism. History of ileostomy on 08/02/2020. Chronic anemia Stage IV decubitus ulcer. Stage II pressure ulcer on the right heel. Recommendation: Continue to hold feeding orally. As the patient is demonstrating silent aspiration. Continue LR. 100 mL per hour. Continue present supportive care measures. Continue tracheostomy care. Physical therapy. To be continued Continue GI and DVT prophylaxis. Continue bronchodilators. Continue amiodarone. Continue midodrine Close monitoring of fluid output from his ileostomy Consider TPN in addition to his enteral feeding. financial services education consultant to address placement. Time with Patient: Less than 30
[2020-10-25 17:45] LABS: Glucose,Whole Blood 141 mg/dL (75-99)
--- NOTE | 2020-10-25 19:23 | P.PN ---
Progress Note - Text Progress Note Date: 10/25/20 Interval history: This is a pleasant 80 years old male with past medical history of coronary art fuad disease, COPD, diabetes mellitus, hyperlipidemia, hypertension, hypothyroidism, coronary artery disease status post cardiac cath and stent placement. He recently underwent double coronary artery bypass grafting for his triple-vessel coronary artery disease. He was in the hospital from 07/18/20- 08/25/2020 pt has tracheostomhy and PEG tube , Information were obtained with the help of at bedside, he presents with confusion, and a lot of secretion Why he states that after been discharged from acute and he went to [facility] aren't states therefore one month and 5 days and then he was discharged a few days ago to jail at [facility] on Friday, however over the weekend he has more congestion, he has weak cough and needed frequent suctioning, patient was able to talk weekly his little confused but he can't communicate through gesture, he denies pain but he is tachypneic He has tracheostomy, PEG tube and try to colostomy. Admitted with-hypotension secondary to severe sepsis secondary to pneumonia, aspiration pneumonia, acute hypoxic respiratory failure, acute kidney injury secondary to ATN, elevated sodium, increased lactic acid, elevated troponin felt to be from tachycardia. Recent history of intraperitoneal hemorrhage status post laboratory with washout and ileostomy on 08/02/2020. Tracheostomy. C. diff ruled out. Recurrent A. fib. She was able to talk after covering his tracheostomy. Patient started on full liquids. Today-ICU: On trach shield with secretions. Remains nothing by mouth. 2 feeding continuous. Patient is communicating with covering his tracheostomy. liquid stool Review of systems: Was done for constitutional, cardiovascular, GI, pulmonary. relevant finding as above Active Medications Acetaminophen (Acetaminophen Tab 325 Mg Tab) 650 mg PO Q6HR PRN PRN Reason: Fever and/ or Pain Last Admin: 10/25/20 09:58 Dose: 650 mg Documented by: Hydrocodone Bitart/Acetaminophen (Hydrocodone/Apap 5-325mg 1 Each Tab) 1 each PO Q6HR PRN PRN Reason: Pain Last Admin: 10/24/20 21:37 Dose: 1 each Documented by: Albuterol/Ipratropium (Ipratropium-Albuterol 3 Ml Neb) 3 ml INHALATION RT-QID [facility] Last Admin: 10/25/20 16:42 Dose: 3 ml Documented by: Albuterol/Ipratropium (Ipratropium-Albuterol 3 Ml Neb) 3 ml INHALATION RT-Q2H PRN PRN Reason: Shortness Of Breath Or Wheezing Last Admin: 10/03/20 21:27 Dose: 3 ml Documented by: Amiodarone HCl (Amiodarone 200 Mg Tab) 400 mg PO BID [facility] Last Admin: 10/25/20 08:38 Dose: 400 mg Documented by: Apixaban (Apixaban 5 Mg Tab) 5 mg PO BID [facility] Last Admin: 10/25/20 08:38 Dose: 5 mg Documented by: Aspirin (Aspirin 81 Mg) 81 mg PO DAILY [facility] Last Admin: 10/25/20 08:38 Dose: 81 mg Documented by: Atorvastatin Calcium (Atorvastatin 40 Mg Tab) 40 mg PEG/G-TUBE HS@2000 [facility] Last Admin: 10/24/20 20:56 Dose: 40 mg Documented by: Budesonide (Budesonide 1 Mg/2 Ml Nebu) 1 mg INHALATION RT-BID [facility] Last Admin: 10/25/20 07:43 Dose: 1 mg Documented by: Cholestyramine Resin (Cholestyramine (With Sugar) 4 Gm Packet) 4 gm PO QID [facility] Last Admin: 10/25/20 17:20 Dose: 4 gm Documented by: Darbepoetin Alex (Darbepoetin Alex 40 Mcg/0.4 Ml Syringe) 40 mcg SQ Q7D [facility] Last Admin: 10/24/20 09:16 Dose: 40 mcg Documented by: Diphenoxylate HCl/Atropine (Diphenox-Atrop 2.5-0.025 Mg 1 Each Tab) 1 each PO Q6HR [facility] Last Admin: 10/25/20 17:20 Dose: 1 each Documented by: Famotidine (Famotidine 20 Mg Tab) 20 mg PO HS [facility] Last Admin: 10/24/20 20:56 Dose: 20 mg Documented by: Lactated Ringer's (Lactated Ringers) 1,000 mls @ 100 mls/hr IV .Q10H [facility] Last Admin: 10/25/20 17:20 Dose: 100 mls/hr Documented by: Insulin Aspart (Insulin Aspart (Novolog) 100 Unit/Ml Vial) 0 unit SQ Q6H [facility]; Protocol Last Admin: 10/25/20 19:00 Dose: Not Given Documented by: Levothyroxine Sodium (Levothyroxine 50 Mcg Tab) 50 mcg PEG/G-TUBE DAILY@0600 [facility] Last Admin: 10/25/20 06:04 Dose: 50 mcg Documented by: Lidocaine (Lidocaine 5% Patch) 1 patch TOPICAL DAILY [facility] Last Admin: 10/25/20 08:39 Dose: 1 patch Documented by: Melatonin (Melatonin 3 Mg Tablet) 3 mg PO HS PRN PRN Reason: Insomnia Last Admin: 10/24/20 21:37 Dose: 3 mg Documented by: Methyl Salicylate (Methyl Salicylate/Menthol Cream 5 Oz) 1 applic TOPICAL Q6HR PRN PRN Reason: Pain Last Admin: 10/24/20 09:12 Dose: 1 applic Documented by: Metoprolol Tartrate (Metoprolol Tartrate 25 Mg Tab) 25 mg PO TID [facility] Last Admin: 10/25/20 17:20 Dose: 25 mg Documented by: Metronidazole (Metronidazole 500 Mg Tab) 500 mg PO TID [facility] Last Admin: 10/25/20 17:21 Dose: 500 mg Documented by: Midodrine (Midodrine 5 Mg Tab) 10 mg PO Q8HR [facility] Last Admin: 10/25/20 17:21 Dose: 10 mg Documented by: Miscellaneous Information (Potassium Replacement Protocol 1 Each Misc) 1 each MISCELLANE DAILY PRN; Protocol PRN Reason: Per Protocol Naloxone HCl (Naloxone 0.4 Mg/Ml 1 Ml Vial) 0.2 mg IV Q2M PRN PRN Reason: Opioid Reversal Octreotide Acetate (Octreotide 100 Mcg/Ml Inj) 100 mcg SQ Q8HR [facility] Last Admin: 10/25/20 17:20 Dose: 100 mcg Documented by: Ondansetron HCl (Ondansetron 4 Mg/2 Ml Vial) 4 mg IVP Q8HR PRN PRN Reason: Nausea And Vomiting Last Admin: 10/11/20 03:52 Dose: 4 mg Documented by: Psyllium Hydrophilic Mucilloid (Psyllium Husk 100% 6 Gm Packet) 6 gm PO BID [facility] Last Admin: 10/25/20 08:38 Dose: 6 gm Documented by: Quetiapine Fumarate (Quetiapine 25 Mg Tab) 25 mg PO HS [facility] Last Admin: 10/24/20 21:07 Dose: 25 mg Documented by: Tamsulosin HCl (Tamsulosin 0.4 Mg Cap.Er.24h) 0.4 mg PO PC-BRKFST [facility] Last Admin: 10/25/20 08:38 Dose: 0.4 mg Documented by: On examination: VITAL SIGNS: 98, 80, 24, 98 x 54, 94% on trach collar GENERAL APPEARANCE: Reclining bed, awake, tired HEENT:Trach collar with shield EYES: Pupils equal. Conjunctiva normal. NECK: JVD not raised. Mass not palpable. RESPIRATORY: Respiratory effort increased Lungs decreased breath sounds CARDIOVASCULAR: First and second sounds normal. No edema. ABDOMEN: Soft. Liver and spleen not palpable. Ileostomy-with yellow stools . PSYCHIATRY: Alert and oriented x3. Mood and affect tired INVESTIGATIONS, reviewed in the clinical context: October 25: WBC 8.6 hemoglobin 9.6 which is 234 potassium 3.8 bun 70 creatinine 1.78 October 21: WBC 30.3 October 20: White count 13.2 hemoglobin 9.4 platelets 206 potassium 4 creatinine 1.48 White count 7.1 hemoglobin 8.7 platelets 256 potassium 3.8 bicarbonate 20 bun 33 creatinine 3.17 Sputum culture-positive for Staphylococcus aureus MSSA, Klebsiella Pneumoniae Previous labs: White count 16.6 hemoglobin 9.9 platelets 584 bun 100 creatinine 3.18 Coronavirus PCR-not detected Renal ultrasound-normal bilateral renal ultrasound Assessment and plan: -Hypotensive shock -better. remains off norepinephrine IV , on midodrine- -Abdominal wound at surgical incision site, followed by general surgery with local dressing -History of ischemic small bowel with evidence of pneumatosis status post small bowel resection on 07/24/2020 -Ileostomy for intraperitoneal hemorrhage and small bowel ischemia status post exploratory laboratory or short of periportal cavity on 08/02/2020 -Coronary artery disease with bypass in July 2020, and Lopressor. Aspirin -Acute hypoxic respiratory failure secondary to pneumonia, continue with oxygen supplementation, currently with the trach collar, 28% -Anemia secondary to chronic kidney disease , follow H&H -Acute kidney injury secondary to ATN secondary to hypotension and hemodynamic instability - Creatinine 1.48 -Chronic kidney disease stage III the baseline creatinine of 1.2-1.5 secondary to nephrosclerosis -Paroxysmal atrial fibrillation with rapid ventricular rate on amiodarone by mouth, Lopressor, converted to sinus rhythm. Patient has been in and out of rapid A. fib. -Hypernatremia secondary to decreased oral water intake. Receiving free water- improved -Possible aspiration pneumonia, sputum positive for MSSA and Klebsiella pneumoniae., Causing sepsis IV Zosyn-changed to IV cefepime-completed course -Silent aspiration detected by barium study. 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 increase Questran to 4 g 4 times a day -DO NOT RESUSCITATE Continue current medication treatment plan.
[2020-10-25] MEDS: MELATONIN 3 MG TABLET PO PRN (21:12)
[2020-10-25] MEDS: FAMOTIDINE 20 MG TAB PO SCH (21:12)
[2020-10-25] MEDS: ATORVASTATIN 40 MG TAB PEG/G-TUBE SCH (21:13)
[2020-10-25] MEDS: QUEtiapine 25 MG TAB PO SCH (21:13)
--- NOTE | 2020-10-25 23:33 | PN ---
PROGRESS NOTE DATE OF SERVICE: 10/25/2020 REASON FOR FOLLOWUP: 1. Pneumonia. 2. Diarrhea. INTERVAL HISTORY: The patient is currently afebrile. The patient is breathing comfortably; however, he is complaining of cough and bringing up more sputum. No hemoptysis. No chest pain. No abdominal pain. Still has significant output in his ileostomy. PHYSICAL EXAMINATION: Blood pressure 108/59, pulse of 76, temperature 97.7. He is 98% on trach collar. General description is an elderly male lying in bed in no distress. RESPIRATORY SYSTEM: Unlabored breathing with decreased breath sounds at the base. No wheeze. HEART: S1, S2. Regular rate and rhythm. ABDOMEN: Soft. No tenderness. LABS: Hemoglobin is 9.6, white count 8.6, BUN of 70, creatinine 1.78. DIAGNOSTIC IMPRESSION AND PLAN: Patient with pneumonia that has been adequately treated. He has received adequate antibiotics. Patient is currently afebrile. White count is normal. He has been monitored closely off antibiotic therapy. Continue with supportive care. MMODL / IJN: [id number] /
[2020-10-26 00:22] LABS: Glucose,Whole Blood 139 mg/dL (75-99)
[2020-10-26] MEDS: INSULIN ASPART (NovoLOG) 100 UNIT/ML VIAL SQ SCH ×5 (00:30→23:49)
[2020-10-26] MEDS: MIDODRINE 5 MG TAB PO SCH ×4 (00:49→23:23)
[2020-10-26] MEDS: OCTREOTIDE 100 MCG/ML INJ SQ SCH ×4 (00:49→23:20)
[2020-10-26] MEDS: DIPHENOX-ATROP 2.5-0.025 MG 1 EACH TAB PO SCH ×5 (00:51→23:19)
[2020-10-26] MEDS: HYDROcodone/APAP 5-325MG 1 EACH TAB PO PRN (01:03)
[2020-10-26 04:54] LABS: Anisocytosis Slight; Basophils % (A) 1 %; Eosinophils # (A) 0.2 k/uL (0-0.7); Eosinophils % (A) 3 %; HCT 26.9 % (39.0-53.0); Lymphocytes % (A) 13 %; MCH 30.4 pg (25.0-35.0); MCHC 33.6 g/dL (31.0-37.0); MCV 90.6 fL (80.0-100.0); Mean Platelet Volume 7.8; Monocytes # (A) 0.6 k/uL (0-1.0); Monocytes % (A) 9 %; Neutrophils # (A) 5.2 k/uL (1.3-7.7); Neutrophils % (A) 73 %; Platelet Count 233 k/uL (150-450); RBC 2.97 m/uL (4.30-5.90); WBC 7.2 k/uL (3.8-10.6)
[2020-10-26 04:59] LABS: Calcium 8.4 mg/dL (8.4-10.2); Potassium 3.7 mmol/L (3.5-5.1)
[2020-10-26] MEDS: LEVOTHYROXINE 50 MCG TAB PEG/G-TUBE SCH (05:09)
[2020-10-26] MEDS: LACTATED RINGERS 1,000 ML IV SCH ×2 (05:11→12:23)
[2020-10-26 05:26] LABS: Glucose,Whole Blood 141 mg/dL (75-99)
[2020-10-26] MEDS ORDERED: POTASSIUM BICARBONATE/CIT AC 20 MEQ TABLET.EFF NG-TUBE SCH (06:00)
[2020-10-26] MEDS: BUDESONIDE 1 MG/2 ML NEBU INHALATION SCH ×2 (07:56→19:22)
[2020-10-26] MEDS: IPRATROPIUM-ALBUTEROL 3 ML NEB INHALATION SCH ×4 (07:56→19:23)
[2020-10-26] MEDS: METOPROLOL TARTRATE 25 MG TAB PO SCH ×3 (09:22→23:23)
[2020-10-26] MEDS: metroNIDAZOLE 500 MG TAB PO SCH ×3 (09:22→23:24)
[2020-10-26] MEDS: PSYLLIUM HUSK 100% 6 GM PACKET PO SCH (09:22)
[2020-10-26] MEDS: AMIODARONE 200 MG TAB PO SCH ×2 (09:22→23:21)
[2020-10-26] MEDS: APIXABAN 5 MG TAB PO SCH ×2 (09:22→23:23)
[2020-10-26] MEDS: TAMSULOSIN 0.4 MG CAP.ER.24H PO SCH (09:22)
[2020-10-26] MEDS: ASPIRIN 81 MG PO SCH (09:22)
[2020-10-26] MEDS: CHOLESTYRAMINE (WITH SUGAR) 4 GM PACKET PO SCH ×4 (09:22→23:21)
[2020-10-26] MEDS: LIDOCAINE 5% PATCH TOPICAL SCH (09:23)
[2020-10-26 12:12] LABS: Glucose,Whole Blood 161 mg/dL (75-99)
--- NOTE | 2020-10-26 12:49 | P.PN ---
Subjective Progress Note Date: 10/26/20 CHIEF COMPLAINT: Respiratory distress HISTORY OF PRESENT ILLNESS: Patient seen and examined with Dr. Dempsey. Patient is being followed in regards to his abdominal wound at incision site and ileostomy. Patient remains in the ICU. He is lying in bed. He denies any abdominal pain. Patient is still having high ileostomy output. He remains on Questran, Lomotil and Sandostatin to help slow ileostomy output. Patient is back to nothing by mouth due to aspiration risk. Repeat modified barium swallow did show silent aspiration. Patient is afebrile. Trach collaring 100%. WBC 7.2 hemoglobin 9.0. PHYSICAL EXAM: VITAL SIGNS: Reviewed. GENERAL: Well-developed in no acute distress. HEENT: No sclera icterus. Extraocular movements grossly intact. Moist buccal mucosa. Head is atraumatic, normocephalic. ABDOMEN: Soft. Nondistended. Nontender. Dressing clean dry and intact. Patient has a brownish liquidy stool coming through the ileostomy. NEUROLOGIC: Alert and oriented. Cranial nerves II through XII grossly intact. Skin: sacral pressure ulcer. Edges of the ulcer are helping clean. Evidence of granulation tissue. No drainage. ASSESSMENT: 1. Abdominal wound at surgical incision site. 2. High ileostomy output 3. History of ischemic small bowel with evidence of pneumatosis status post small bowel resection on 07/24/2020. 4. History of intraperitoneal hemorrhage and small bowel ischemia status post exploratory laparotomy, washout of peritoneal cavity and ileostomy with small bowel resection on 08/02/2020 5. 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 Acute hypoxic respiratory failure secondary to pneumonia 7. Sepsis secondary to pneumonia 8. Acute kidney injury 9. chronic Anemia: With known chronic kidney disease and iron deficiency. He did require blood transfusion and IV Iron during this admission 10. Chronic malnutrition secondary to high ileostomy output 11. Unstageable sacral pressure ulcer PLAN: -Recommend ileostomy reversal when patient is medically stable -Continue treatment per wound care service for sacral pressure ulcer -Continue wound care with Aquacel dressing to abdominal wound -Continue Sandostatin, Lomotil and Questran to help with high-volume ileostomy output -Continue supportive care -Continue ICU management -Continue antibiotics per ID Physician Component Assembler note has been reviewed by physician. Signing provider agrees with the documented findings, assessment, and plan of care. Objective - Vital Signs Vital signs: Vital Signs Temp 97.5 F L 10/26/20 08:00 Pulse 68 10/26/20 12:29 Resp 22 10/26/20 08:00 BP 115/63 10/26/20 08:00 Pulse Ox 98 10/25/20 20:00 Intake & Output 10/25/20 10/26/20 10/26/20 18:59 06:59 18:59 Intake Total 2240 1100 1520 Output Total 400 2400 250 Balance 1840 -1300 1270 Weight 76.4 kg Intake: IV 800 1100 800 Lactated Ringers 1,000 ml 800 1100 800 @ 100 mls/hr IV .Q10H [facility] Rx#:[id number] Tube Feeding 1440 720 Output: Urine 400 1200 250 Stool 1200 Other: Voiding Method Urinal Urinal Urinal # Voids 0 - Labs CBC & Chem 7: 10/26/20 03:47 10/26/20 03:47 Labs: Abnormal Lab Results - Last 24 Hours (Table) 10/25/20 10/26/20 10/26/20 Range/Units 17:43 00:10 03:47 RBC 2.97 L (4.30-5.90) m/uL Hgb 9.0 L (13.0-17.5) gm/dL Hct 26.9 L (39.0-53.0) % RDW 19.0 H (11.5-15.5) % Sodium (137-145) mmol/L BUN (9-20) mg/dL Creatinine (0.66-1.25) mg/dL Glucose (74-99) mg/dL POC Glucose (mg/dL) 141 H 139 H (75-99) mg/dL 10/26/20 10/26/20 10/26/20 Range/Units 03:47 05:15 12:00 RBC (4.30-5.90) m/uL Hgb (13.0-17.5) gm/dL Hct (39.0-53.0) % RDW (11.5-15.5) % Sodium 133 L (137-145) mmol/L BUN 66 H (9-20) mg/dL Creatinine 1.69 H (0.66-1.25) mg/dL Glucose 121 H (74-99) mg/dL POC Glucose (mg/dL) 141 H 161 H (75-99) mg/dL
--- NOTE | 2020-10-26 14:04 | P.PN ---
Subjective Progress Note Date: 10/26/20 Principal diagnosis: Acute on chronic hypoxic respiratory failure secondary to left lower lobe pneumonia and sepsis. 10/22/2020, the patient was able to tolerate some full liquid diet. We did a bedside swallow evaluation the patient was able to swallow. We will advance his diet today. He remains on a 28% trach collar and he continues to have rest or secretions. No new cultures from his sputum and the last culture was positive for Rdaha and the patient remains on a combination of IV cefepime and Flagyl. He has a high output ileostomy. He is still on vital AF. He is on Eliquis in addition to metoprolol and amiodarone regarding his atrial fibrillation. His rate is controlled and he is and sinus rhythm for now. Abdominal hematoma is stable. We are still taking care of his stage IV sacral decub ulcer and stage II right ulcer. His abdominal wound is also healing. No fever. Hemoglobin is stable at 9.5. White cell count stable at 12.7. He has adequate strength in his upper extremity. He seems to be getting stronger on a daily basis. Patient was reevaluated today on 10/23/2020, remains in the ICU, he is on 28% trach collar. Remains on tube feeds, and full liquid diet, however the patient is aspirating according to the speech therapist, and he failed his swallow evaluation, hence I would hold his liquid diet for now. And continue enteral feeding via PEG tube. His IV fluid is all are at 50 mL per hour. Patient seems to be in no distress, however he seems to be concerned about his sacral decubitus ulcer which is a stage III or 4, on his coccyx, and that being addressed by wound care staff. And also seen by Dr. Dempsey no debridement is recommended. Chest x-ray showed left lower lobe atelectasis and small pleural effusion. CBC is relatively normal. The left lites are normal. However his BUN is 67 creatinine is 1.64 Patient was reevaluated today on 10/24/2020, remains in the ICU, remains on 28% trach collar, remains on Flagyl for his aspiration pneumonia, patient is supposed to have repeat swallow evaluation. His IV fluid is all are at 100 mL per hour. Patient seems to be doing better today compared to the last few days. Continues to have wound care for his coccyx stage III decubitus ulcer. Patient continues to have significant amount of copious amount of output from his ileostomy almost 4.3 L in the last 24 hours. And IV fluid was increased today. I held his oral feedings yesterday because of potential aspiration, awaiting the repeat swallow evaluation. Clinically however the patient seems to be doing better. CBC is relatively normal left lites are normal BUN is 72 creatinine is 1.72. Patient was reevaluated today on 10/25/2020, remains in the ICU, remains on trach collar at 28%, remains on all are at 100 mL per hour, remains on enteral feeding via PEG tube, continues to have significant output from his colostomy. Patient had about 2.90 L over the last 24 hours. Reevaluated yesterday again by speech therapy, patient is clearly having silent aspiration, and recommended that we continue to hold oral feedings for now. Continue enteral feeding via PEG tube. Multiple maneuvers have been attempted to control his output from the colostomy, but none of it seems to work. Hence I suggested we keep fluids at the same rate. And continue enteral feeding. Labs today showed a relatively normal CBC is relatively normal electrolytes, BUN remains at 70 creatinine is 1.78. Reevaluated today on 10/26/2020, patient remains on trach collar at 28%, continues to have significant volume output from his colostomy. Remains on IV fluid at 100 mL/h of lactated Ringer's. Patient is mostly on enteral feeding via PEG tube, and since he failed his swallow evaluation, no oral feeding anymore. Patient was placed on Questran for his significant GI output. And he is also on Flagyl for his aspiration pneumonia. Clinically the patient is doing well, and I believe at this point should possibly consider transferring the patient to the [facility]/rehab facility. Objective - Vital Signs Vital signs: Vital Signs Temp 97.5 F L 10/26/20 08:00 Pulse 68 10/26/20 12:29 Resp 22 10/26/20 08:00 BP 115/63 10/26/20 08:00 Pulse Ox 98 10/25/20 20:00 Intake & Output 10/25/20 10/26/20 10/26/20 18:59 06:59 18:59 Intake Total 2240 1100 1520 Output Total 400 2400 250 Balance 1840 -1300 1270 Weight 76.4 kg Intake: IV 800 1100 800 Lactated Ringers 1,000 ml 800 1100 800 @ 100 mls/hr IV .Q10H [facility] Rx#:[id number] Tube Feeding 1440 720 Output: Urine 400 1200 250 Stool 1200 Other: Voiding Method Urinal Urinal Urinal # Voids 0 - Exam Physical Exam: Revealed 80-year-old white male pleasant, on trach collar, 28% FiO2 HEENT:[Neck is supple.] [No neck masses.] [No thyromegaly.] [No JVD.] Tracheostomy is intact. Chest: Symmetrical chest expansion, crackles and rhonchi noted bilaterally especially at the left base Cardiac Exam: [Normal S1 and S2, no S3 gallop, no murmur.] Abdomen: [Soft, nontender, no megaly, no rebound, no guarding, normal bowel sounds.] Surgical scar is noted in the mid abdomen, significant output is noted from his right ileostomy, patient has a fecal management system applied. Extremities: [No clubbing, 1+ bipedal edema, no cyanosis.] Neurological Exam: Alert and oriented 3. [No focal neurologic deficit.] Psychiatric: Normal mood, affect and normal mental status examination. Skin: No rashes, surgical scar noted in the abdomen, some minimal drainage noted, clean dressing , stage III sacral decubitus ulcer 35 cm noted. - Labs CBC & Chem 7: 10/26/20 03:47 10/26/20 03:47 Labs: Abnormal Lab Results - Last 24 Hours (Table) 10/25/20 10/26/20 10/26/20 Range/Units 17:43 00:10 03:47 RBC 2.97 L (4.30-5.90) m/uL Hgb 9.0 L (13.0-17.5) gm/dL Hct 26.9 L (39.0-53.0) % RDW 19.0 H (11.5-15.5) % Sodium (137-145) mmol/L BUN (9-20) mg/dL Creatinine (0.66-1.25) mg/dL Glucose (74-99) mg/dL POC Glucose (mg/dL) 141 H 139 H (75-99) mg/dL 10/26/20 10/26/20 10/26/20 Range/Units 03:47 05:15 12:00 RBC (4.30-5.90) m/uL Hgb (13.0-17.5) gm/dL Hct (39.0-53.0) % RDW (11.5-15.5) % Sodium 133 L (137-145) mmol/L BUN 66 H (9-20) mg/dL Creatinine 1.69 H (0.66-1.25) mg/dL Glucose 121 H (74-99) mg/dL POC Glucose (mg/dL) 141 H 161 H (75-99) mg/dL Assessment and Plan Assessment: Impression: Hypotension secondary to sepsis secondary to left lower lobe pneumonia, also suspect significant component of hypovolemia in addition to his sepsis, strongly doubt septic shock. Acute on chronic hypoxic respiratory failure secondary to pneumonia and underlying COPD. Acute left lower lobe pneumonia, secondary to MSSA, and Klebsiella pneumonia Sepsis secondary to pneumonia involving the left lower lobe. Acute on chronic kidney injury secondary to sepsis. Moderate severe COPD. History of triple-vessel coronary artery disease, bypass surgery on 07/18/2020 with multiple postoperative complications History of tracheostomy mostly because of failure to wean. Benign essential hypertension. Type 2 diabetes. Dyslipidemia. Chronic atrial fibrillation. On amiodarone and on anticoagulation therapy History of hypothyroidism. History of ileostomy on 08/02/2020. Chronic anemia Stage IV decubitus ulcer. Stage II pressure ulcer on the right heel. Recommendation: Continue to hold feeding orally. Continue LR. 100 mL per hour. Continue present supportive care measures. Continue tracheostomy care. Continue physical therapy Continue GI and DVT prophylaxis. Continue bronchodilators. Continue amiodarone. Continue midodrine patient will be cleared from my perspective for placement at intermediate or rehab facility. Time with Patient: Less than 30
[2020-10-26 18:05] LABS: Glucose,Whole Blood 112 mg/dL (75-99)
--- NOTE | 2020-10-26 18:46 | PN ---
PROGRESS NOTE DATE OF SERVICE: 10/26/2020 REASON FOR FOLLOWUP: Pneumonia. INTERVAL HISTORY: The patient is currently afebrile, has been breathing comfortably on a trach collar. The patient denies having any chest pain. He did have a cough, bringing up some sputum. No abdominal pain. Did have significant output in his ileostomy. No worsening abdominal pain. PHYSICAL EXAMINATION: Blood pressure 108/75, pulse of 92, temperature 98.5. He is 98% on a trach collar. General description is an elderly male lying in bed in no distress. RESPIRATORY SYSTEM: Unlabored breathing with decreased intensity of breath sounds. No wheeze. HEART: S1, S2. Regular rate and rhythm. ABDOMEN: Soft. No tenderness. LABS: Hemoglobin is 9 with a white count of 7.2, BUN of 66, creatinine 1.69. DIAGNOSTIC IMPRESSION AND PLAN: Patient with pneumonia that has been adequately treated with antibiotic therapy and is currently off antibiotic for a couple of days now without any worsening respiratory status. Will monitor the patient closely off antibiotic therapy and continue with supportive care. MMODL / IJN: [id number] /
--- NOTE | 2020-10-26 20:33 | P.PN ---
Progress Note - Text Progress Note Date: 10/26/20 Interval history: This is a pleasant 80 years old male with past medical history of coronary art fuad disease, COPD, diabetes mellitus, hyperlipidemia, hypertension, hypothyroidism, coronary artery disease status post cardiac cath and stent placement. He recently underwent double coronary artery bypass grafting for his triple-vessel coronary artery disease. He was in the hospital from 07/18/20- 08/25/2020 pt has tracheostomhy and PEG tube , Information were obtained with the help of at bedside, he presents with confusion, and a lot of secretion Why he states that after been discharged from acute and he went to [facility] aren't states therefore one month and 5 days and then he was discharged a few days ago to usp at [facility] on Friday, however over the weekend he has more congestion, he has weak cough and needed frequent suctioning, patient was able to talk weekly his little confused but he can't communicate through gesture, he denies pain but he is tachypneic He has tracheostomy, PEG tube and try to colostomy. Admitted with-hypotension secondary to severe sepsis secondary to pneumonia, aspiration pneumonia, acute hypoxic respiratory failure, acute kidney injury secondary to ATN, elevated sodium, increased lactic acid, elevated troponin felt to be from tachycardia. Recent history of intraperitoneal hemorrhage status post laboratory with washout and ileostomy on 08/02/2020. Tracheostomy. C. diff ruled out. Recurrent A. fib. She was able to talk after covering his tracheostomy. Patient started on full liquids. Today-ICU: On trach shield with secretions. Remains nothing by mouth. 2 feeding continuous. Patient is communicating with covering his tracheostomy. liquid stool. Review of systems: Was done for constitutional, cardiovascular, GI, pulmonary. relevant finding as above Active Medications Acetaminophen (Acetaminophen Tab 325 Mg Tab) 650 mg PO Q6HR PRN PRN Reason: Fever and/ or Pain Last Admin: 10/25/20 21:13 Dose: 650 mg Documented by: Hydrocodone Bitart/Acetaminophen (Hydrocodone/Apap 5-325mg 1 Each Tab) 1 each PO Q6HR PRN PRN Reason: Pain Last Admin: 10/26/20 01:03 Dose: 1 each Documented by: Albuterol/Ipratropium (Ipratropium-Albuterol 3 Ml Neb) 3 ml INHALATION RT-QID WADE Last Admin: 10/26/20 19:23 Dose: 3 ml Documented by: Albuterol/Ipratropium (Ipratropium-Albuterol 3 Ml Neb) 3 ml INHALATION RT-Q2H PRN PRN Reason: Shortness Of Breath Or Wheezing Last Admin: 10/03/20 21:27 Dose: 3 ml Documented by: Amiodarone HCl (Amiodarone 200 Mg Tab) 400 mg PO BID [facility] Last Admin: 10/26/20 09:22 Dose: 400 mg Documented by: Apixaban (Apixaban 5 Mg Tab) 5 mg PO BID [facility] Last Admin: 10/26/20 09:22 Dose: 5 mg Documented by: Aspirin (Aspirin 81 Mg) 81 mg PO DAILY [facility] Last Admin: 10/26/20 09:22 Dose: 81 mg Documented by: Atorvastatin Calcium (Atorvastatin 40 Mg Tab) 40 mg PEG/G-TUBE HS@2000 [facility] Last Admin: 10/25/20 21:13 Dose: 40 mg Documented by: Budesonide (Budesonide 1 Mg/2 Ml Nebu) 1 mg INHALATION RT-BID [facility] Last Admin: 10/26/20 19:22 Dose: 1 mg Documented by: Cholestyramine Resin (Cholestyramine (With Sugar) 4 Gm Packet) 4 gm PO QID [facility] Last Admin: 10/26/20 18:00 Dose: 4 gm Documented by: Darbepoetin Alex (Darbepoetin Alex 40 Mcg/0.4 Ml Syringe) 40 mcg SQ Q7D [facility] Last Admin: 10/24/20 09:16 Dose: 40 mcg Documented by: Diphenoxylate HCl/Atropine (Diphenox-Atrop 2.5-0.025 Mg 1 Each Tab) 1 each PO Q6HR [facility] Last Admin: 10/26/20 17:59 Dose: 1 each Documented by: Famotidine (Famotidine 20 Mg Tab) 20 mg PO HS [facility] Last Admin: 10/25/20 21:12 Dose: 20 mg Documented by: Lactated Ringer's (Lactated Ringers) 1,000 mls @ 100 mls/hr IV .Q10H [facility] Last Admin: 10/26/20 12:23 Dose: 100 mls/hr Documented by: Insulin Aspart (Insulin Aspart (Novolog) 100 Unit/Ml Vial) 0 unit SQ Q6H [facility]; Protocol Last Admin: 10/26/20 18:36 Dose: Not Given Documented by: Levothyroxine Sodium (Levothyroxine 50 Mcg Tab) 50 mcg PEG/G-TUBE DAILY@0600 [facility] Last Admin: 10/26/20 05:09 Dose: 50 mcg Documented by: Lidocaine (Lidocaine 5% Patch) 1 patch TOPICAL DAILY [facility] Last Admin: 10/26/20 09:23 Dose: 1 patch Documented by: Melatonin (Melatonin 3 Mg Tablet) 3 mg PO HS PRN PRN Reason: Insomnia Last Admin: 10/25/20 21:12 Dose: 3 mg Documented by: Methyl Salicylate (Methyl Salicylate/Menthol Cream 5 Oz) 1 applic TOPICAL Q6HR PRN PRN Reason: Pain Last Admin: 10/24/20 09:12 Dose: 1 applic Documented by: Metoprolol Tartrate (Metoprolol Tartrate 25 Mg Tab) 25 mg PO TID [facility] Last Admin: 10/26/20 17:59 Dose: 25 mg Documented by: Metronidazole (Metronidazole 500 Mg Tab) 500 mg PO TID [facility] Last Admin: 10/26/20 18:00 Dose: 500 mg Documented by: Midodrine (Midodrine 5 Mg Tab) 10 mg PO Q8HR [facility] Last Admin: 10/26/20 17:59 Dose: 10 mg Documented by: Miscellaneous Information (Potassium Replacement Protocol 1 Each Misc) 1 each MISCELLANE DAILY PRN; Protocol PRN Reason: Per Protocol Naloxone HCl (Naloxone 0.4 Mg/Ml 1 Ml Vial) 0.2 mg IV Q2M PRN PRN Reason: Opioid Reversal Octreotide Acetate (Octreotide 100 Mcg/Ml Inj) 100 mcg SQ Q8HR [facility] Last Admin: 10/26/20 17:59 Dose: 100 mcg Documented by: Ondansetron HCl (Ondansetron 4 Mg/2 Ml Vial) 4 mg IVP Q8HR PRN PRN Reason: Nausea And Vomiting Last Admin: 10/11/20 03:52 Dose: 4 mg Documented by: Quetiapine Fumarate (Quetiapine 25 Mg Tab) 25 mg PO HS [facility] Last Admin: 10/25/20 21:13 Dose: 25 mg Documented by: Tamsulosin HCl (Tamsulosin 0.4 Mg Cap.Er.24h) 0.4 mg PO -BRKFST [facility] Last Admin: 03/11/21 09:22 Dose: 0.4 mg Documented by: On examination: VITAL SIGNS: 98.5, 72, 82, 108/35, on trach collar GENERAL APPEARANCE: Sitting up in bed, awake, HEENT:Trach collar with shield EYES: Pupils equal. Conjunctiva normal. NECK: JVD not raised. Mass not palpable. RESPIRATORY: Respiratory effort increased Lungs decreased breath sounds CARDIOVASCULAR: First and second sounds normal. No edema. ABDOMEN: Soft. Liver and spleen not palpable. Ileostomy-with yellow stools . PSYCHIATRY: Alert and oriented x3. Mood and affect tired INVESTIGATIONS, reviewed in the clinical context: October 26: WBC 7.2 hemoglobin 9 platelets 233 potassium 3.7 creatinine 1.69 October 25: WBC 8.6 hemoglobin 9.6 which is 234 potassium 3.8 bun 70 creatinine 1.78 October 21: WBC 30.3 October 20: White count 13.2 hemoglobin 9.4 platelets 206 potassium 4 creatinine 1.48 White count 7.1 hemoglobin 8.7 platelets 256 potassium 3.8 bicarbonate 20 bun 33 creatinine 3.17 Sputum culture-positive for Staphylococcus aureus MSSA, Klebsiella Pneumoniae Previous labs: White count 16.6 hemoglobin 9.9 platelets 584 bun 100 creatinine 3.18 Coronavirus PCR-not detected Renal ultrasound-normal bilateral renal ultrasound Assessment and plan: -Hypotensive shock -better. remains off norepinephrine IV , on midodrine- -Abdominal wound at surgical incision site, followed by general surgery with local dressing -History of ischemic small bowel with evidence of pneumatosis status post small bowel resection on 07/24/2020 -Ileostomy for intraperitoneal hemorrhage and small bowel ischemia status post exploratory laboratory or short of periportal cavity on 08/02/2020 -Coronary artery disease with bypass in July 2020, and Lopressor. Aspirin -Acute hypoxic respiratory failure secondary to pneumonia, continue with oxygen supplementation, currently with the trach collar, 28% -Anemia secondary to chronic kidney disease , follow H&H -Acute kidney injury secondary to ATN secondary to hypotension and hemodynamic instability - Creatinine 1.48 -Chronic kidney disease stage III the baseline creatinine of 1.2-1.5 secondary to nephrosclerosis -Paroxysmal atrial fibrillation with rapid ventricular rate on amiodarone by mouth, Lopressor, converted to sinus rhythm. Patient has been in and out of rapid A. fib. -Hypernatremia secondary to decreased oral water intake. Receiving free water- improved -Possible aspiration pneumonia, sputum positive for MSSA and Klebsiella pneumoniae., Causing sepsis IV Zosyn-changed to IV cefepime-completed course -Silent aspiration detected by barium study. 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 increase Questran to 4 g 4 times a day -DO NOT RESUSCITATE Some decreased stool output after increasing the Questran. 4 times a day. Did communicate with Dr. Dempsey to discussed with Dr. Galvan about possible reversal surgery.
[2020-10-26] MEDS: ACETAMINOPHEN TAB 325 MG TAB PO PRN (23:19)
[2020-10-26] MEDS: MELATONIN 3 MG TABLET PO PRN (23:20)
[2020-10-26] MEDS: ATORVASTATIN 40 MG TAB PEG/G-TUBE SCH (23:23)
[2020-10-26] MEDS: FAMOTIDINE 20 MG TAB PO SCH (23:23)
[2020-10-26] MEDS: QUEtiapine 25 MG TAB PO SCH (23:24)
[2020-10-26 23:36] LABS: Glucose,Whole Blood 152 mg/dL (75-99)
[2020-10-27 06:00] LABS: Glucose,Whole Blood 141 mg/dL (75-99)
[2020-10-27] MEDS: LEVOTHYROXINE 50 MCG TAB PEG/G-TUBE SCH (06:10)
[2020-10-27] MEDS: DIPHENOX-ATROP 2.5-0.025 MG 1 EACH TAB PO SCH ×3 (06:10→22:17)
[2020-10-27] MEDS: INSULIN ASPART (NovoLOG) 100 UNIT/ML VIAL SQ SCH ×3 (06:10→18:47)
[2020-10-27] MEDS: MIDODRINE 5 MG TAB PO SCH ×3 (08:37→22:19)
[2020-10-27] MEDS: TAMSULOSIN 0.4 MG CAP.ER.24H PO SCH (08:38)
[2020-10-27] MEDS: ASPIRIN 81 MG PO SCH (08:38)
[2020-10-27] MEDS: APIXABAN 5 MG TAB PO SCH ×2 (08:38→22:18)
[2020-10-27] MEDS: METOPROLOL TARTRATE 25 MG TAB PO SCH ×3 (08:38→22:18)
[2020-10-27] MEDS: AMIODARONE 200 MG TAB PO SCH ×2 (08:38→22:18)
[2020-10-27] MEDS: LIDOCAINE 5% PATCH TOPICAL SCH (08:38)
[2020-10-27] MEDS: CHOLESTYRAMINE (WITH SUGAR) 4 GM PACKET PO SCH ×4 (08:38→22:20)
[2020-10-27] MEDS: metroNIDAZOLE 500 MG TAB PO SCH ×3 (08:39→22:18)
[2020-10-27] MEDS: OCTREOTIDE 100 MCG/ML INJ SQ SCH ×3 (08:43→22:19)
[2020-10-27] MEDS: BUDESONIDE 1 MG/2 ML NEBU INHALATION SCH ×2 (08:49→20:31)
[2020-10-27] MEDS: IPRATROPIUM-ALBUTEROL 3 ML NEB INHALATION SCH ×4 (08:49→20:31)
--- NOTE | 2020-10-27 11:37 | P.PN ---
Subjective Progress Note Date: 10/27/20 CHIEF COMPLAINT: Respiratory distress HISTORY OF PRESENT ILLNESS: Patient seen and examined with Dr. Dempsey. Patient is being followed in regards to his abdominal wound at incision site and ileostomy. Patient remains in the ICU. He is lying in bed. He denies any abdominal pain. Patient is still having high ileostomy output. He remains on Questran, Lomotil and Sandostatin to help slow ileostomy output. Patient is back to nothing by mouth due to aspiration risk. Repeat modified barium swallow did show silent aspiration. Patient is afebrile. Trach collaring 100%. Albumin level 2.3 patient is very weak and unable to get out of bed. There is further discussion regarding ileostomy reversal. Patient would like to go to rehab and get stronger first. PHYSICAL EXAM: VITAL SIGNS: Reviewed. GENERAL: Well-developed in no acute distress. HEENT: No sclera icterus. Extraocular movements grossly intact. Moist buccal mucosa. Head is atraumatic, normocephalic. ABDOMEN: Soft. Nondistended. Nontender. Dressing clean dry and intact. Patient has a brownish liquidy stool coming through the ileostomy. NEUROLOGIC: Alert and oriented. Cranial nerves II through XII grossly intact. Skin: sacral pressure ulcer. Edges of the ulcer are helping clean. Evidence of granulation tissue. No drainage. ASSESSMENT: 1. Abdominal wound at surgical incision site. 2. High ileostomy output 3. History of ischemic small bowel with evidence of pneumatosis status post small bowel resection on 07/24/2020. 4. History of intraperitoneal hemorrhage and small bowel ischemia status post exploratory laparotomy, washout of peritoneal cavity and ileostomy with small bowel resection on 08/02/2020 5. 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 Acute hypoxic respiratory failure secondary to pneumonia 7. Sepsis secondary to pneumonia 8. Acute kidney injury 9. chronic Anemia: With known chronic kidney disease and iron deficiency. He did require blood transfusion and IV Iron during this admission 10. Chronic malnutrition secondary to high ileostomy output 11. Unstageable sacral pressure ulcer PLAN: -Recommend ileostomy reversal when patient is medically stable. Patient would like to be discharged to rehab and to work with physical therapy to get stronger before proceeding with ileostomy. Patient can be discharged to rehab from surgical standpoint when cleared by patient's other providers. -Continue treatment per wound care service for sacral pressure ulcer and heel ulcer -Continue wound care with Aquacel dressing to abdominal wound -Continue Sandostatin, Lomotil and Questran to help with high-volume ileostomy output -Continue supportive care -Continue ICU management -Continue antibiotics per ID Physician Roller note has been reviewed by physician. Signing provider agrees with the documented findings, assessment, and plan of care. Objective - Vital Signs Vital signs: Vital Signs Temp 97.6 F 10/27/20 08:00 Pulse 74 10/27/20 09:06 Resp 14 10/27/20 08:00 BP 108/66 10/27/20 08:00 Pulse Ox 97 10/27/20 08:00 Intake & Output 10/26/20 10/27/20 10/27/20 18:59 06:59 18:59 Intake Total 3760 1000 790 Output Total 1550 1950 740 Balance 2210 -950 50 Weight 76.4 kg 75.1 kg Intake: IV 1600 1000 400 Lactated Ringers 1,000 ml 1600 1000 400 @ 100 mls/hr IV .Q10H WADE Rx#:[id number] Tube Feeding 2160 360 Other 30 Output: Urine 450 900 400 Stool 1100 1050 340 Other: Voiding Method Urinal Urinal Urinal # Voids 0 1 - Labs CBC & Chem 7: 10/26/20 03:47 10/26/20 03:47 Labs: Abnormal Lab Results - Last 24 Hours (Table) 10/26/20 10/26/20 10/26/20 Range/Units 12:00 18:04 23:34 POC Glucose (mg/dL) 161 H 112 H 152 H (75-99) mg/dL Albumin (3.5-5.0) g/dL 10/27/20 10/27/20 Range/Units 03:58 05:58 POC Glucose (mg/dL) 141 H (75-99) mg/dL Albumin 2.3 L (3.5-5.0) g/dL
[2020-10-27 11:48] LABS: Glucose,Whole Blood 137 mg/dL (75-99)
--- NOTE | 2020-10-27 14:34 | P.PN ---
Subjective Progress Note Date: 10/27/20 Principal diagnosis: Acute on chronic hypoxic respiratory failure secondary to left lower lobe pneumonia and sepsis. 10/22/2020, the patient was able to tolerate some full liquid diet. We did a bedside swallow evaluation the patient was able to swallow. We will advance his diet today. He remains on a 28% trach collar and he continues to have rest or secretions. No new cultures from his sputum and the last culture was positive for Radha and the patient remains on a combination of IV cefepime and Flagyl. He has a high output ileostomy. He is still on vital AF. He is on Eliquis in addition to metoprolol and amiodarone regarding his atrial fibrillation. His rate is controlled and he is and sinus rhythm for now. Abdominal hematoma is stable. We are still taking care of his stage IV sacral decub ulcer and stage II right ulcer. His abdominal wound is also healing. No fever. Hemoglobin is stable at 9.5. White cell count stable at 12.7. He has adequate strength in his upper extremity. He seems to be getting stronger on a daily basis. Patient was reevaluated today on 10/23/2020, remains in the ICU, he is on 28% trach collar. Remains on tube feeds, and full liquid diet, however the patient is aspirating according to the speech therapist, and he failed his swallow evaluation, hence I would hold his liquid diet for now. And continue enteral feeding via PEG tube. His IV fluid is all are at 50 mL per hour. Patient seems to be in no distress, however he seems to be concerned about his sacral decubitus ulcer which is a stage III or 4, on his coccyx, and that being addressed by wound care staff. And also seen by Dr. Dempsey no debridement is recommended. Chest x-ray showed left lower lobe atelectasis and small pleural effusion. CBC is relatively normal. The left lites are normal. However his BUN is 67 creatinine is 1.64 Patient was reevaluated today on 10/24/2020, remains in the ICU, remains on 28% trach collar, remains on Flagyl for his aspiration pneumonia, patient is supposed to have repeat swallow evaluation. His IV fluid is all are at 100 mL per hour. Patient seems to be doing better today compared to the last few days. Continues to have wound care for his coccyx stage III decubitus ulcer. Patient continues to have significant amount of copious amount of output from his ileostomy almost 4.3 L in the last 24 hours. And IV fluid was increased today. I held his oral feedings yesterday because of potential aspiration, awaiting the repeat swallow evaluation. Clinically however the patient seems to be doing better. CBC is relatively normal left lites are normal BUN is 72 creatinine is 1.72. Patient was reevaluated today on 10/25/2020, remains in the ICU, remains on trach collar at 28%, remains on all are at 100 mL per hour, remains on enteral feeding via PEG tube, continues to have significant output from his colostomy. Patient had about 2.90 L over the last 24 hours. Reevaluated yesterday again by speech therapy, patient is clearly having silent aspiration, and recommended that we continue to hold oral feedings for now. Continue enteral feeding via PEG tube. Multiple maneuvers have been attempted to control his output from the colostomy, but none of it seems to work. Hence I suggested we keep fluids at the same rate. And continue enteral feeding. Labs today showed a relatively normal CBC is relatively normal electrolytes, BUN remains at 70 creatinine is 1.78. Reevaluated today on 10/26/2020, patient remains on trach collar at 28%, continues to have significant volume output from his colostomy. Remains on IV fluid at 100 mL/h of lactated Ringer's. Patient is mostly on enteral feeding via PEG tube, and since he failed his swallow evaluation, no oral feeding anymore. Patient was placed on Questran for his significant GI output. And he is also on Flagyl for his aspiration pneumonia. Clinically the patient is doing well, and I believe at this point should [facility] Reevaluated today on 10/27/2020, patient remains in the ICU, remains on 28% trach collar, he is in sinus rhythm, he has significant ostomy output, and significant urinary output, remains on LR at 100 mL per hour. Continues to have over 2.1 L of output from his ostomy. Surgery is considering reversal for his ileostomy, however I discussed the situation with the surgeon and with the thoracic surgeon as well as the admitting physician, we seem to be all in agreement to wait at least a month of rehabilitation, make sure the patient is a bit stronger before he goes back to oral are. I believe the patient is ready to be transferred back to rehab, and antibiotics to be continued as per infectious disease on the case. He may not even need any antibiotics at this point. CBC is normal left lites are normal renal profile is improving with BUN down to 66 creatinine is down to 1.6. His last sputum culture was on October 03 and I was positive for staph aureus and Klebsiella pneumonia both were treated. Objective - Vital Signs Vital signs: Vital Signs Temp 97.6 F 10/27/20 12:00 Pulse 64 10/27/20 12:46 Resp 16 10/27/20 12:00 BP 106/56 10/27/20 12:00 Pulse Ox 98 10/27/20 12:00 Intake & Output 10/26/20 10/27/20 10/27/20 18:59 06:59 18:59 Intake Total 3760 1000 1200 Output Total 1550 1950 980 Balance 2210 -950 220 Weight 76.4 kg 75.1 kg Intake: IV 1600 1000 600 Lactated Ringers 1,000 ml 1600 1000 600 @ 100 mls/hr IV .Q10H WADE Rx#:[id number] Tube Feeding 2160 540 Other 60 Output: Urine 450 900 400 Stool 1100 1050 580 Other: Voiding Method Urinal Urinal Urinal # Voids 0 1 - Exam Physical Exam: Revealed 80-year-old white male pleasant, on trach collar, 28% FiO2 HEENT:[Neck is supple.] [No neck masses.] [No thyromegaly.] [No JVD.] Tracheostomy is intact. Chest: Symmetrical chest expansion, crackles and rhonchi noted bilaterally especially at the left base Cardiac Exam: [Normal S1 and S2, no S3 gallop, no murmur.] Abdomen: [Soft, nontender, no megaly, no rebound, no guarding, normal bowel sounds.] Surgical scar is noted in the mid abdomen, significant output is noted from his right ileostomy, patient has a fecal management system applied. Extremities: [No clubbing, 1+ bipedal edema, no cyanosis.] Neurological Exam: Alert and oriented 3. [No focal neurologic deficit.] Psychiatric: Normal mood, affect and normal mental status examination. Skin: No rashes, surgical scar noted in the abdomen, some minimal drainage n oted, clean dressing , stage III sacral decubitus ulcer 35 cm noted. - Labs CBC & Chem 7: 10/26/20 03:47 10/26/20 03:47 Labs: Abnormal Lab Results - Last 24 Hours (Table) 10/26/20 10/26/20 10/27/20 Range/Units 18:04 23:34 03:58 POC Glucose (mg/dL) 112 H 152 H (75-99) mg/dL Albumin 2.3 L (3.5-5.0) g/dL 10/27/20 10/27/20 Range/Units 05:58 11:37 POC Glucose (mg/dL) 141 H 137 H (75-99) mg/dL Albumin (3.5-5.0) g/dL Assessment and Plan Assessment: Impression: Hypotension secondary to sepsis secondary to left lower lobe pneumonia, also richardson spect significant component of hypovolemia in addition to his sepsis, strongly doubt septic shock. Acute on chronic hypoxic respiratory failure secondary to pneumonia and underlying COPD. Acute left lower lobe pneumonia, secondary to MSSA, and Klebsiella pneumonia Sepsis secondary to pneumonia involving the left lower lobe. Acute on chronic kidney injury secondary to sepsis. Moderate severe COPD. History of triple-vessel coronary artery disease, bypass surgery on 07/18/2020 with multiple postoperative complications History of tracheostomy mostly because of failure to wean. Benign essential hypertension. Type 2 diabetes. Dyslipidemia. Chronic atrial fibrillation. On amiodarone and on anticoagulation therapy History of hypothyroidism. History of ileostomy on 08/02/2020. Chronic anemia Stage IV decubitus ulcer. Stage II pressure ulcer on the right heel. Recommendation: Continue enteral feeding via PEG tube. Continue tracheostomy care. Continue IV fluids. Continue present supportive care measures. Continue physical therapy Continue GI and DVT prophylaxis. Continue bronchodilators. Continue amiodarone. Discussed his condition with the admitting physician, consider transfer back to rehab. Also discussed his condition with all her services on the case including general surgery and cardiothoracic surgery/Dr. Cantor Time with Patient: Less than 30
--- NOTE | 2020-10-27 15:40 | PN ---
PROGRESS NOTE Patient is seen for followup for acute kidney injury, mostly ATN, currently nonoliguric and stable. Patient has had a lot of output from his ostomy and is maintained on IV fluids at 100 mL/hour. No other significant complaints today. On examination, blood pressure is 106/56, heart rate 68 per minute. He is afebrile. EXAMINATION OF THE HEART: S1 and S2. EXAMINATION OF LUNGS: Bilateral breath sounds are heard. ABDOMEN: Soft, non-tender. Examination of lower extremities shows no significant edema. [employer] exam is grossly intact. Labs show sodium 133, potassium 3.7, chloride 102, BUN 66, serum creatinine 1.69, hemoglobin 9.0 g/dL. ASSESSMENT: 1. Acute kidney injury, acute tubular necrosis, currently stable. There is a component of mild acute kidney injury, mostly prerenal. Continue with IV fluids. Renal function is stable and not worsening. 2. Sepsis from pneumonia, currently recovered. 3. Status post explorative laparotomy for ischemic bowel in July, currently with an ileostomy. 4. Atrial fibrillation with rapid ventricular response, now with controlled ventricular response. 5. Chronic kidney disease, stage 3, baseline creatinine 1.2 to 1.5 mg/dL. PLAN: Continue with IV fluids. Avoid nephrotoxic agents. Monitor electrolytes. MMODL / IJN: [id number] /
--- NOTE | 2020-10-27 16:19 | PN ---
PROGRESS NOTE DATE OF SERVICE: 10/27/2020 REASON FOR FOLLOWUP: 1. Pneumonia. 2. Diarrhea. INTERVAL HISTORY: The patient is currently afebrile. The patient is feeling slightly better. He is breathing comfortably. Denies having any chest pain. Occasional cough. No abdominal pain. Still has significant output in his ileostomy. PHYSICAL EXAMINATION: Blood pressure 106/56, pulse of 68, temperature 97.6. He is 98% on trach collar. General description is an elderly male lying in bed in no distress. RESPIRATORY SYSTEM: Unlabored breathing with decreased breath sounds at the base. No wheeze. HEART: S1, S2. Regular rate and rhythm. ABDOMEN: Soft. No tenderness. LABS: No new labs have been obtained today. DIAGNOSTIC IMPRESSION AND PLAN: 1. Patient with pneumonia that has been adequately treated; he has completed his antibiotic therapy, currently being monitored closely off the antibiotic therapy. 2. Leukocytosis that has also resolved. 3. Diarrhea. Currently not on any systemic antibiotic therapy. May benefit from bowel rest and possible TPN. MMODL / IJN: [id number] /
[2020-10-27 17:48] LABS: Glucose,Whole Blood 135 mg/dL (75-99)
--- NOTE | 2020-10-27 20:12 | P.PN ---
Progress Note - Text Progress Note Date: 10/27/20 Interval history: This is a pleasant 80 years old male with past medical history of coronary art fuad disease, COPD, diabetes mellitus, hyperlipidemia, hypertension, hypothyroidism, coronary artery disease status post cardiac cath and stent placement. He recently underwent double coronary artery bypass grafting for his triple-vessel coronary artery disease. He was in the hospital from 07/18/20- 08/25/2020 pt has tracheostomhy and PEG tube , Information were obtained with the help of at bedside, he presents with confusion, and a lot of secretion Why he states that after been discharged from acute and he went to [facility] aren't states therefore one month and 5 days and then he was discharged a few days ago to senior care at [facility] on Friday, however over the weekend he has more congestion, he has weak cough and needed frequent suctioning, patient was able to talk weekly his little confused but he can't communicate through gesture, he denies pain but he is tachypneic He has tracheostomy, PEG tube and try to colostomy. Admitted with-hypotension secondary to severe sepsis secondary to pneumonia, aspiration pneumonia, acute hypoxic respiratory failure, acute kidney injury secondary to ATN, elevated sodium, increased lactic acid, elevated troponin felt to be from tachycardia. Recent history of intraperitoneal hemorrhage status post laboratory with washout and ileostomy on 08/02/2020. Tracheostomy. C. diff ruled out. Recurrent A. fib. She was able to talk after covering his tracheostomy. Patient started on full liquids. Today-ICU: On trach shield with secretions. Remains nothing by mouth. 2 feeding continuous. Liquid stools persist. Dr. Dempsey to speak to Dr. Galvan. They decided patient not ready for surgery. That the patient go to rehab become stronger than come back for reconstruction. Patient is accepted that. Liquid stool output remains high Review of systems: Was done for constitutional, cardiovascular, GI, pulmonary. relevant finding as above Active Medications Acetaminophen (Acetaminophen Tab 325 Mg Tab) 650 mg PO Q6HR PRN PRN Reason: Fever and/ or Pain Last Admin: 10/26/20 23:19 Dose: 650 mg Documented by: Hydrocodone Bitart/Acetaminophen (Hydrocodone/Apap 5-325mg 1 Each Tab) 1 each PO Q6HR PRN PRN Reason: Pain Last Admin: 10/26/20 01:03 Dose: 1 each Documented by: Albuterol/Ipratropium (Ipratropium-Albuterol 3 Ml Neb) 3 ml INHALATION RT-QID [facility] Last Admin: 10/27/20 16:37 Dose: 3 ml Documented by: Albuterol/Ipratropium (Ipratropium-Albuterol 3 Ml Neb) 3 ml INHALATION RT-Q2H PRN PRN Reason: Shortness Of Breath Or Wheezing Last Admin: 10/03/20 21:27 Dose: 3 ml Documented by: Amiodarone HCl (Amiodarone 200 Mg Tab) 400 mg PO BID [facility] Last Admin: 10/27/20 08:38 Dose: 400 mg Documented by: Apixaban (Apixaban 5 Mg Tab) 5 mg PO BID [facility] Last Admin: 10/27/20 08:38 Dose: 5 mg Documented by: Aspirin (Aspirin 81 Mg) 81 mg PO DAILY [facility] Last Admin: 10/27/20 08:38 Dose: 81 mg Documented by: Atorvastatin Calcium (Atorvastatin 40 Mg Tab) 40 mg PEG/G-TUBE HS@1999 [facility] Last Admin: 10/26/20 23:23 Dose: 40 mg Documented by: Budesonide (Budesonide 1 Mg/2 Ml Nebu) 1 mg INHALATION RT-BID [facility] Last Admin: 10/27/20 08:49 Dose: 1 mg Documented by: Cholestyramine Resin (Cholestyramine (With Sugar) 4 Gm Packet) 4 gm PO QID [facility] Last Admin: 10/27/20 12:15 Dose: 4 gm Documented by: Darbepoetin Alex (Darbepoetin Alex 40 Mcg/0.4 Ml Syringe) 40 mcg SQ Q7D [facility] Last Admin: 10/24/20 09:16 Dose: 40 mcg Documented by: Diphenoxylate HCl/Atropine (Diphenox-Atrop 2.5-0.025 Mg 1 Each Tab) 1 each PO Q6HR [facility] Last Admin: 10/27/20 12:15 Dose: 1 each Documented by: Famotidine (Famotidine 20 Mg Tab) 20 mg PO HS [facility] Last Admin: 10/26/20 23:23 Dose: 20 mg Documented by: Insulin Aspart (Insulin Aspart (Novolog) 100 Unit/Ml Vial) 0 unit SQ Q6H [facility]; Protocol Last Admin: 10/27/20 18:47 Dose: Not Given Documented by: Levothyroxine Sodium (Levothyroxine 50 Mcg Tab) 50 mcg PEG/G-TUBE DAILY@0600 [facility] Last Admin: 10/27/20 06:10 Dose: 50 mcg Documented by: Lidocaine (Lidocaine 5% Patch) 1 patch TOPICAL DAILY [facility] Last Admin: 10/27/20 08:38 Dose: 1 patch Documented by: Melatonin (Melatonin 3 Mg Tablet) 3 mg PO HS PRN PRN Reason: Insomnia Last Admin: 10/26/20 23:20 Dose: 3 mg Documented by: Methyl Salicylate (Methyl Salicylate/Menthol Cream 5 Oz) 1 applic TOPICAL Q6HR PRN PRN Reason: Pain Last Admin: 10/24/20 09:12 Dose: 1 applic Documented by: Metoprolol Tartrate (Metoprolol Tartrate 25 Mg Tab) 25 mg PO TID [facility] Last Admin: 10/27/20 15:47 Dose: 25 mg Documented by: Metronidazole (Metronidazole 500 Mg Tab) 500 mg PO TID [facility] Last Admin: 10/27/20 15:48 Dose: 500 mg Documented by: Midodrine (Midodrine 5 Mg Tab) 10 mg PO Q8HR [facility] Last Admin: 10/27/20 15:48 Dose: 10 mg Documented by: Miscellaneous Information (Potassium Replacement Protocol 1 Each Misc) 1 each MISCELLANE DAILY PRN; Protocol PRN Reason: Per Protocol Naloxone HCl (Naloxone 0.4 Mg/Ml 1 Ml Vial) 0.2 mg IV Q2M PRN PRN Reason: Opioid Reversal Octreotide Acetate (Octreotide 100 Mcg/Ml Inj) 100 mcg SQ Q8HR [facility] Last Admin: 10/27/20 15:49 Dose: 100 mcg Documented by: Ondansetron HCl (Ondansetron 4 Mg/2 Ml Vial) 4 mg IVP Q8HR PRN PRN Reason: Nausea And Vomiting Last Admin: 10/11/20 03:52 Dose: 4 mg Documented by: Quetiapine Fumarate (Quetiapine 25 Mg Tab) 25 mg PO HS [facility] Last Admin: 10/26/20 23:24 Dose: 25 mg Documented by: Tamsulosin HCl (Tamsulosin 0.4 Mg Cap.Er.24h) 0.4 mg PO PC-BRKFST [facility] Last Admin: 10/27/20 08:38 Dose: 0.4 mg Documented by: On examination: VITAL SIGNS: 97.4, 63, 14, 101/68, 98% on trach collar GENERAL APPEARANCE: Sitting up in bed, awake, HEENT:Trach collar with shield EYES: Pupils equal. Conjunctiva normal. NECK: JVD not raised. Mass not palpable. RESPIRATORY: Respiratory effort increased Lungs decreased breath sounds CARDIOVASCULAR: First and second sounds normal. No edema. ABDOMEN: Soft. Liver and spleen not palpable. Ileostomy-with yellow stools . PSYCHIATRY: Alert and oriented x3. Mood and affect tired INVESTIGATIONS, reviewed in the clinical context: October 27: WBC 7.2 hemoglobin 9 platelets 233 potassium 3.7 creatinine 1.69 October 20: White count 13.2 hemoglobin 9.4 platelets 206 potassium 4 creatinine 1.48 White count 7.1 hemoglobin 8.7 platelets 256 potassium 3.8 bicarbonate 20 bun 33 creatinine 3.17 Sputum culture-positive for Staphylococcus aureus MSSA, Klebsiella Pneumoniae Previous labs: White count 16.6 hemoglobin 9.9 platelets 584 bun 100 creatinine 3.18 Coronavirus PCR-not detected Renal ultrasound-normal bilateral renal ultrasound Assessment and plan: -Hypotensive shock -better. remains off norepinephrine IV , on midodrine- -Abdominal wound at surgical incision site, followed by general surgery with local dressing -History of ischemic small bowel with evidence of pneumatosis status post small bowel resection on 07/24/2020 -Ileostomy for intraperitoneal hemorrhage and small bowel ischemia status post exploratory laboratory or short of periportal cavity on 08/02/2020 -Coronary artery disease with bypass in July 2020, and Lopressor. Aspirin -Acute hypoxic respiratory failure secondary to pneumonia, continue with oxygen supplementation, currently with the trach collar, 28% -Anemia secondary to chronic kidney disease , follow H&H -Acute kidney injury secondary to ATN secondary to hypotension and hemodynamic i nstability - Creatinine 1.48 -Chronic kidney disease stage III the baseline creatinine of 1.2-1.5 secondary to nephrosclerosis -Paroxysmal atrial fibrillation with rapid ventricular rate on amiodarone by mouth, Lopressor, converted to sinus rhythm. Patient has been in and out of rapid A. fib. -Hypernatremia secondary to decreased oral water intake. Receiving free water- improved -Possible aspiration pneumonia, sputum positive for MSSA and Klebsiella pneumoniae., Causing sepsis IV Zosyn-changed to IV cefepime-completed course -Silent aspiration detected by barium study. 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 increase Questran to 4 g 4 times a day -DO NOT RESUSCITATE Continue current medication. Pending authorization to the [facility]. Hopefully discharge tomorrow if authorization comes through..
[2020-10-27] MEDS: ATORVASTATIN 40 MG TAB PEG/G-TUBE SCH (22:18)
[2020-10-27] MEDS: FAMOTIDINE 20 MG TAB PO SCH (22:18)
[2020-10-27] MEDS: QUEtiapine 25 MG TAB PO SCH (22:19)
[2020-10-27] MEDS: MELATONIN 3 MG TABLET PO PRN (22:22)
[2020-10-27] MEDS: ACETAMINOPHEN TAB 325 MG TAB PO PRN (22:23)
[2020-10-27 23:58] LABS: Glucose,Whole Blood 107 mg/dL (75-99)
[2020-10-28] MEDS: INSULIN ASPART (NovoLOG) 100 UNIT/ML VIAL SQ SCH ×5 (00:47→23:48)
[2020-10-28] MEDS: DIPHENOX-ATROP 2.5-0.025 MG 1 EACH TAB PO SCH ×5 (00:47→21:33)
[2020-10-28 04:57] LABS: Glucose,Whole Blood 140 mg/dL (75-99)
[2020-10-28] MEDS: LEVOTHYROXINE 50 MCG TAB PEG/G-TUBE SCH (05:15)
[2020-10-28] MEDS: BUDESONIDE 1 MG/2 ML NEBU INHALATION SCH ×2 (07:46→21:01)
[2020-10-28] MEDS: IPRATROPIUM-ALBUTEROL 3 ML NEB INHALATION SCH ×4 (07:46→21:01)
[2020-10-28] MEDS: MIDODRINE 5 MG TAB PO SCH ×3 (08:56→21:35)
[2020-10-28] MEDS: LIDOCAINE 5% PATCH TOPICAL SCH (08:56)
[2020-10-28] MEDS: OCTREOTIDE 100 MCG/ML INJ SQ SCH ×3 (08:56→23:48)
[2020-10-28] MEDS: AMIODARONE 200 MG TAB PO SCH ×2 (08:57→21:35)
[2020-10-28] MEDS: TAMSULOSIN 0.4 MG CAP.ER.24H PO SCH (08:57)
[2020-10-28] MEDS: METOPROLOL TARTRATE 25 MG TAB PO SCH ×3 (08:58→21:33)
[2020-10-28] MEDS: ASPIRIN 81 MG PO SCH (08:58)
[2020-10-28] MEDS: APIXABAN 5 MG TAB PO SCH ×2 (08:58→21:35)
[2020-10-28] MEDS: metroNIDAZOLE 500 MG TAB PO SCH ×3 (08:59→21:31)
[2020-10-28] MEDS: CHOLESTYRAMINE (WITH SUGAR) 4 GM PACKET PO SCH ×4 (09:00→21:31)
--- NOTE | 2020-10-28 10:57 | P.PN ---
Progress Note - Text Progress Note Date: 10/28/20 Patient has no new complaints. He still has high output through his ileostomy. He had over 1200 mL in the last 12 hours. On exam vital signs are stable. Abdomen soft. Incision is clean dry tach. High output ileostomy. Patient will have his ileostomy reversal medically stable.
[2020-10-28 11:56] LABS: Glucose,Whole Blood 148 mg/dL (75-99)
--- NOTE | 2020-10-28 12:14 | P.PN ---
Subjective Progress Note Date: 10/28/20 Principal diagnosis: This is a 80-year-old male with acute kidney injury secondary to sepsis and pneumonia. Additionally he has high output ileostomy after having had a ischemic bowel episode in July 2020 and had ileostomy done. Currently he is on a PEG tube feeding 90 mL an hour +250 mL of free water every 6 hours. He was taken off of IV fluids to see if he can be discharged home. His last creatinine available is from 2 days ago when it was stable at 1.69, this is baseline. He is feeling fairly comfortable otherwise denies any complaints. He is awake alert oriented. No abdominal pain. He is nothing by mouth because of the PEG feeding. Objective - Vital Signs Vital signs: Vital Signs Temp 98.6 F 10/28/20 08:00 Pulse 77 10/28/20 08:00 Resp 14 10/28/20 08:00 BP 106/59 10/28/20 08:00 Pulse Ox 96 10/28/20 04:00 Intake & Output 10/27/20 10/28/20 10/28/20 18:59 06:59 18:59 Intake Total 1990 1270 0 Output Total 1300 1550 1005 Balance 690 -280 -1005 Weight 72.9 kg Intake: IV 1000 100 0 Lactated Ringers 1,000 ml 1000 100 0 @ 100 mls/hr IV .Q10H [facility] Rx#:[id number] Tube Feeding 900 1080 Other 90 90 Output: Urine 400 500 325 Stool 900 1050 680 Other: Voiding Method Urinal Urinal Urinal # Voids 0 1 On examination awake alert oriented HEENT exam no JVP neck is supple no facial asymmetry Lungs clear to auscultation fair air entry bilaterally Heart sounds unremarkable for any murmur rub gallop Abdomen soft nontender Extremity exam was no edema Neurologically awake alert oriented but profoundly weak - Labs CBC & Chem 7: 10/26/20 03:47 10/26/20 03:47 Labs: Abnormal Lab Results - Last 24 Hours (Table) 10/27/20 10/27/20 10/28/20 Range/Units 17:36 23:57 04:55 POC Glucose (mg/dL) 135 H 107 H 140 H (75-99) mg/dL 10/28/20 Range/Units 11:54 POC Glucose (mg/dL) 148 H (75-99) mg/dL Assessment and Plan Assessment: Impression 1. Acute kidney injury secondary to pneumonia sepsis and large-volume ileostomy drainage. Creatinine currently stable 2 days ago at 1.6 2. Chronic kidney disease secondary to nephrosclerosis Baseline creatinine is about 1.5 3. Large ileostomy drainage about 3 L per day. 4. Mild degree of hyponatremia scan to acute kidney injury 5. Ischemic bowel status post laparoscopy to hi and ileostomy the July 2020. 6. History of coronary artery disease, COPD, paroxysmal atrial fibrillation, sacral DPO. Recommendation 1. Continue current feeding at 90 mL an hour through the PEG as well as free water 250 mL every 6 hours. 2 we'll add sodium chloride tablets 1 g 3 times a day 2 induce fluid restriction and improve his intravascular volume and he'll need weekly closely followed up he is discharged to the [facility] with a repeat set of renal panel in 2 days' as well as today we need to draw her labs and to be reported to me before he is discharged
[2020-10-28 12:37] LABS: Anisocytosis Slight; Basophils # (A) 0.1 k/uL (0-0.2); Basophils % (A) 1 %; Eosinophils # (A) 0.2 k/uL (0-0.7); Eosinophils % (A) 3 %; HCT 29.6 % (39.0-53.0); HGB 9.6 gm/dL (13.0-17.5); Lymphocytes # (A) 0.7 k/uL (1.0-4.8); Lymphocytes % (A) 9 %; MCH 29.9 pg (25.0-35.0); MCHC 32.6 g/dL (31.0-37.0); MCV 91.6 fL (80.0-100.0); Mean Platelet Volume 7.7; Monocytes # (A) 0.6 k/uL (0-1.0); Monocytes % (A) 8 %; Neutrophils # (A) 6.7 k/uL (1.3-7.7); Neutrophils % (A) 80 %; Platelet Count 260 k/uL (150-450); RBC 3.23 m/uL (4.30-5.90); RDW 18.5 % (11.5-15.5); WBC 8.4 k/uL (3.8-10.6)
[2020-10-28] MEDS: SODIUM CHLORIDE TAB 1 GM TAB PO SCH ×3 (12:41→21:31)
--- NOTE | 2020-10-28 12:54 | P.PN ---
Subjective Progress Note Date: 10/28/20 Principal diagnosis: Acute on chronic hypoxic respiratory failure secondary to left lower lobe pneumonia and sepsis. 10/22/2020, the patient was able to tolerate some full liquid diet. We did a bedside swallow evaluation the patient was able to swallow. We will advance his diet today. He remains on a 28% trach collar and he continues to have rest or secretions. No new cultures from his sputum and the last culture was positive for Radha and the patient remains on a combination of IV cefepime and Flagyl. He has a high output ileostomy. He is still on vital AF. He is on Eliquis in addition to metoprolol and amiodarone regarding his atrial fibrillation. His rate is controlled and he is and sinus rhythm for now. Abdominal hematoma is stable. We are still taking care of his stage IV sacral decub ulcer and stage II right ulcer. His abdominal wound is also healing. No fever. Hemoglobin is stable at 9.5. White cell count stable at 12.7. He has adequate strength in his upper extremity. He seems to be getting stronger on a daily basis. Patient was reevaluated today on 10/23/2020, remains in the ICU, he is on 28% trach collar. Remains on tube feeds, and full liquid diet, however the patient is aspirating according to the speech therapist, and he failed his swallow evaluation, hence I would hold his liquid diet for now. And continue enteral feeding via PEG tube. His IV fluid is all are at 50 mL per hour. Patient seems to be in no distress, however he seems to be concerned about his sacral decubitus ulcer which is a stage III or 4, on his coccyx, and that being addressed by wound care staff. And also seen by Dr. Dempsey no debridement is recommended. Chest x-ray showed left lower lobe atelectasis and small pleural effusion. CBC is relatively normal. The left lites are normal. However his BUN is 67 creatinine is 1.64 Patient was reevaluated today on 10/24/2020, remains in the ICU, remains on 28% trach collar, remains on Flagyl for his aspiration pneumonia, patient is supposed to have repeat swallow evaluation. His IV fluid is all are at 100 mL per hour. Patient seems to be doing better today compared to the last few days. Continues to have wound care for his coccyx stage III decubitus ulcer. Patient continues to have significant amount of copious amount of output from his ileostomy almost 4.3 L in the last 24 hours. And IV fluid was increased today. I held his oral feedings yesterday because of potential aspiration, awaiting the repeat swallow evaluation. Clinically however the patient seems to be doing better. CBC is relatively normal left lites are normal BUN is 72 creatinine is 1.72. Patient was reevaluated today on 10/25/2020, remains in the ICU, remains on trach collar at 28%, remains on all are at 100 mL per hour, remains on enteral feeding via PEG tube, continues to have significant output from his colostomy. Patient had about 2.90 L over the last 24 hours. Reevaluated yesterday again by speech therapy, patient is clearly having silent aspiration, and recommended that we continue to hold oral feedings for now. Continue enteral feeding via PEG tube. Multiple maneuvers have been attempted to control his output from the colostomy, but none of it seems to work. Hence I suggested we keep fluids at the same rate. And continue enteral feeding. Labs today showed a relatively normal CBC is relatively normal electrolytes, BUN remains at 70 creatinine is 1.78. Reevaluated today on 10/26/2020, patient remains on trach collar at 28%, continues to have significant volume output from his colostomy. Remains on IV fluid at 100 mL/h of lactated Ringer's. Patient is mostly on enteral feeding via PEG tube, and since he failed his swallow evaluation, no oral feeding anymore. Patient was placed on Questran for his significant GI output. And he is also on Flagyl for his aspiration pneumonia. Clinically the patient is doing well, and I believe at this point [facility] Reevaluated today on 10/27/2020, patient remains in the ICU, remains on 28% trach collar, he is in sinus rhythm, he has significant ostomy output, and significant urinary output, remains on LR at 100 mL per hour. Continues to have over 2.1 L of output from his ostomy. Surgery is considering reversal for his ileostomy, however I discussed the situation with the surgeon and with the thoracic surgeon as well as the admitting physician, we seem to be all in agreement to wait at least a month of rehabilitation, make sure the patient is a bit stronger before he goes back to oral are. I believe the patient is ready to be transferred back to rehab, and antibiotics to be continued as per infectious disease on the case. He may not even need any antibiotics at this point. CBC is normal left lites are normal renal profile is improving with BUN down to 66 creatinine is down to 1.6. His last sputum culture was on October 03 and I was positive for staph aureus and Klebsiella pneumonia both were treated. Patient was reevaluated today on 10/28/2020, remains in the ICU, he remains on 28% trach collar. Continues to have significant output from his ostomy. Patient remains on IV fluids in the 100 mL per hour. There is a bit of a concern that if his IV fluid is to be placed on hold, patient would become dehydrated and negative fluid balance within a short period of time since his ileostomy output is so significant. Hence there is a bit of reluctance about sending the patient back to halfway at this point, and I'm suggesting possibly inpatient rehab consider sending the patient to [facility] rehabilitation with Dr. Lan. This is to be addressed by his admitting physician. Clinically the patient is doing great, his labs are excellent. Patient is not in any form of distress Objective - Vital Signs Vital signs: Vital Signs Temp 98.6 F 10/28/20 08:00 Pulse 70 10/28/20 12:49 Resp 14 10/28/20 08:00 BP 106/59 10/28/20 08:00 Pulse Ox 96 10/28/20 04:00 Intake & Output 10/27/20 10/28/20 10/28/20 18:59 06:59 18:59 Intake Total 1990 1270 970 Output Total 1300 1550 1505 Balance 690 -280 -535 Weight 72.9 kg Intake: IV 1000 100 0 Lactated Ringers 1,000 ml 1000 100 0 @ 100 mls/hr IV .Q10H [facility] Rx#:[id number] Tube Feeding 900 1080 720 Other 90 90 250 Output: Urine 400 500 625 Stool 900 1050 880 Other: Voiding Method Urinal Urinal Urinal # Voids 0 1 - Exam Physical Exam: Revealed 80-year-old white male pleasant, on trach collar, 28% FiO2 HEENT:[Neck is supple.] [No neck masses.] [No thyromegaly.] [No JVD.] Tracheostomy is intact. Chest: Symmetrical chest expansion, crackles and rhonchi noted bilaterally especially at the left base Cardiac Exam: [Normal S1 and S2, no S3 gallop, no murmur.] Abdomen: [Soft, nontender, no megaly, no rebound, no guarding, normal bowel sounds.] Surgical scar is noted in the mid abdomen, significant output is noted from his right ileostomy, patient has a fecal management system applied. Extremities: [No clubbing, 1+ bipedal edema, no cyanosis.] Neurological Exam: Alert and oriented 3. [No focal neurologic deficit.] Psychiatric: Normal mood, affect and normal mental status examination. Skin: surgical scar noted in the abdomen clean dressing , stage III sacral de cubitus ulcer 35 cm noted. - Labs CBC & Chem 7: 10/28/20 12:18 10/26/20 03:47 Labs: Abnormal Lab Results - Last 24 Hours (Table) 10/27/20 10/27/20 10/28/20 Range/Units 17:36 23:57 04:55 RBC (4.30-5.90) m/uL Hgb (13.0-17.5) gm/dL Hct (39.0-53.0) % RDW (11.5-15.5) % Lymphocytes # (1.0-4.8) k/uL POC Glucose (mg/dL) 135 H 107 H 140 H (75-99) mg/dL 10/28/20 10/28/20 Range/Units 11:54 12:18 RBC 3.23 L (4.30-5.90) m/uL Hgb 9.6 L (13.0-17.5) gm/dL Hct 29.6 L (39.0-53.0) % RDW 18.5 H (11.5-15.5) % Lymphocytes # 0.7 L (1.0-4.8) k/uL POC Glucose (mg/dL) 148 H (75-99) mg/dL Assessment and Plan Assessment: Impression: Hypotension secondary to sepsis secondary to left lower lobe pneumonia, also suspect significant component of hypovolemia in addition to his sepsis, strongly doubt septic shock. Acute on chronic hypoxic respiratory failure secondary to pneumonia and underlying COPD. Acute left lower lobe pneumonia, secondary to MSSA, and Klebsiella pneumonia Sepsis secondary to pneumonia involving the left lower lobe. Acute on chronic kidney injury secondary to sepsis. Moderate severe COPD. History of triple-vessel coronary artery disease, bypass surgery on 07/18/2020 with multiple postoperative complications History of tracheostomy mostly because of failure to wean. Benign essential hypertension. Type 2 diabetes. Dyslipidemia. Chronic atrial fibrillation. On amiodarone and on anticoagulation therapy History of hypothyroidism. History of ileostomy on 08/02/2020. Chronic anemia Stage IV decubitus ulcer. Stage II pressure ulcer on the right heel. Recommendation: Continue enteral feeding via PEG tube. Continue tracheostomy care. Continue IV fluids. Continue present supportive care measures. Continue physical therapy Continue GI and DVT prophylaxis. Continue bronchodilators. Continue amiodarone. Consider sending patient to inpatient rehab at [facility] Time with Patient: Less than 30
[2020-10-28 13:26] LABS: Albumin 2.5 g/dL (3.5-5.0); Calcium 8.4 mg/dL (8.4-10.2); Phosphorus 2.5 mg/dL (2.5-4.5); Potassium 4.1 mmol/L (3.5-5.1); Total Bilirubin 0.4 mg/dL (0.2-1.3); Total Protein 5.5 g/dL (6.3-8.2)
[2020-10-28 13:36] LABS: Magnesium 0.5 mg/dL (1.6-2.3)
[2020-10-28] MEDS: MAGNESIUM SULFATE-D5W PMX 1 GM in DEXTROSE/WATER 1 100ML.BAG IVPB SCH ×4 (13:50→20:29)
[2020-10-28 16:27] LABS: Glucose,Whole Blood 129 mg/dL (75-99)
[2020-10-28 20:30] LABS: Glucose,Whole Blood 131 mg/dL (75-99)
[2020-10-28] MEDS: QUEtiapine 25 MG TAB PO SCH (21:31)
[2020-10-28] MEDS: ACETAMINOPHEN TAB 325 MG TAB PO PRN (21:33)
[2020-10-28] MEDS: FAMOTIDINE 20 MG TAB PO SCH (21:34)
[2020-10-28] MEDS: ATORVASTATIN 40 MG TAB PEG/G-TUBE SCH (21:34)
[2020-10-28] MEDS: MELATONIN 3 MG TABLET PO PRN (21:35)
--- NOTE | 2020-10-28 22:20 | PN ---
PROGRESS NOTE DATE OF SERVICE: 10/28/2020 REASON FOR FOLLOWUP: Pneumonia. INTERVAL HISTORY: The patient is currently afebrile. Patient has been breathing comfortably. The patient denies having any chest pain. No shortness of breath. Occasional cough. No abdominal pain. Did have significant output from his ileostomy. PHYSICAL EXAMINATION: Blood pressure 101/55 with a pulse of 80, temperature 98. He is 96% on trach collar General description is an elderly male up in the bed in no distress. RESPIRATORY SYSTEM: Unlabored breathing with decreased breath sounds at the bases. No wheeze. HEART: S1, S2. Regular rate. ABDOMEN: Soft, no tenderness. LAB DATA: Hemoglobin 9.1, white count 8.4, BUN of 25, creatinine 1.51. DIAGNOSTIC IMPRESSION AND PLAN: Patient with pneumonia that has been adequately treated, being monitored closely off antibiotic therapy. Currently afebrile. White count normal. Infectious Disease will see as needed. Please call back with a question with infectious disease care. MMODL / IJN: [id number] /
--- NOTE | 2020-10-28 23:32 | P.PN ---
Progress Note - Text Progress Note Date: 10/28/20 Interval history: This is a pleasant 80 years old male with past medical history of coronary art fuad disease, COPD, diabetes mellitus, hyperlipidemia, hypertension, hypothyroidism, coronary artery disease status post cardiac cath and stent placement. He recently underwent double coronary artery bypass grafting for his triple-vessel coronary artery disease. He was in the hospital from 07/18/20- 08/25/2020 pt has tracheostomhy and PEG tube , Information were obtained with the help of at bedside, he presents with confusion, and a lot of secretion Why he states that after been discharged from acute and he went to [facility] aren't states therefore one month and 5 days and then he was discharged a few days ago to correction at [facility] on Friday, however over the weekend he has more congestion, he has weak cough and needed frequent suctioning, patient was able to talk weekly his little confused but he can't communicate through gesture, he denies pain but he is tachypneic He has tracheostomy, PEG tube and try to colostomy. Admitted with-hypotension secondary to severe sepsis secondary to pneumonia, aspiration pneumonia, acute hypoxic respiratory failure, acute kidney injury secondary to ATN, elevated sodium, increased lactic acid, elevated troponin felt to be from tachycardia. Recent history of intraperitoneal hemorrhage status post laboratory with washout and ileostomy on 08/02/2020. Tracheostomy. C. diff ruled out. Recurrent A. fib. She was able to talk after covering his tracheostomy. Patient started on full liquids. Today-ICU: On trach shield with secretions. Remains nothing by mouth. 2 feeding continuous. Liquid stools persist. Patient's IV fluids were discontinued. Increase fluid bolus to the PEG tube. Review of systems: Was done for constitutional, cardiovascular, GI, pulmonary. relevant finding as above Active Medications Acetaminophen (Acetaminophen Tab 325 Mg Tab) 650 mg PO Q6HR PRN PRN Reason: Fever and/ or Pain Last Admin: 10/28/20 21:33 Dose: 650 mg Documented by: Hydrocodone Bitart/Acetaminophen (Hydrocodone/Apap 5-325mg 1 Each Tab) 1 each PO Q6HR PRN PRN Reason: Pain Last Admin: 10/26/20 01:03 Dose: 1 each Documented by: Albuterol/Ipratropium (Ipratropium-Albuterol 3 Ml Neb) 3 ml INHALATION RT-QID [facility] Last Admin: 10/28/20 21:01 Dose: 3 ml Documented by: Albuterol/Ipratropium (Ipratropium-Albuterol 3 Ml Neb) 3 ml INHALATION RT-Q2H PRN PRN Reason: Shortness Of Breath Or Wheezing Last Admin: 10/03/20 21:27 Dose: 3 ml Documented by: Amiodarone HCl (Amiodarone 200 Mg Tab) 400 mg PO BID [facility] Last Admin: 10/28/20 21:35 Dose: 400 mg Documented by: Apixaban (Apixaban 5 Mg Tab) 5 mg PO BID [facility] Last Admin: 10/28/20 21:35 Dose: 5 mg Documented by: Aspirin (Aspirin 81 Mg) 81 mg PO DAILY [facility] Last Admin: 10/28/20 08:58 Dose: 81 mg Documented by: Atorvastatin Calcium (Atorvastatin 40 Mg Tab) 40 mg PEG/G-TUBE HS@2000 [facility] Last Admin: 10/28/20 21:34 Dose: 40 mg Documented by: Budesonide (Budesonide 1 Mg/2 Ml Nebu) 1 mg INHALATION RT-BID [facility] Last Admin: 10/28/20 21:01 Dose: 1 mg Documented by: Cholestyramine Resin (Cholestyramine (With Sugar) 4 Gm Packet) 4 gm PO QID [facility] Last Admin: 10/28/20 21:31 Dose: 4 gm Documented by: Darbepoetin Alex (Darbepoetin Alex 40 Mcg/0.4 Ml Syringe) 40 mcg SQ Q7D [facility] Last Admin: 10/24/20 09:16 Dose: 40 mcg Documented by: Diphenoxylate HCl/Atropine (Diphenox-Atrop 2.5-0.025 Mg 1 Each Tab) 1 each PO Q6HR [facility] Last Admin: 10/28/20 21:33 Dose: 1 each Documented by: Famotidine (Famotidine 20 Mg Tab) 20 mg PO HS [facility] Last Admin: 10/28/20 21:34 Dose: 20 mg Documented by: Insulin Aspart (Insulin Aspart (Novolog) 100 Unit/Ml Vial) 0 unit SQ Q6H [facility]; Protocol Last Admin: 10/28/20 17:05 Dose: Not Given Documented by: Levothyroxine Sodium (Levothyroxine 50 Mcg Tab) 50 mcg PEG/G-TUBE DAILY@0600 [facility] Last Admin: 10/28/20 05:15 Dose: 50 mcg Documented by: Lidocaine (Lidocaine 5% Patch) 1 patch TOPICAL DAILY [facility] Last Admin: 10/28/20 08:56 Dose: 1 patch Documented by: Melatonin (Melatonin 3 Mg Tablet) 3 mg PO HS PRN PRN Reason: Insomnia Last Admin: 10/28/20 21:35 Dose: 3 mg Documented by: Methyl Salicylate (Methyl Salicylate/Menthol Cream 5 Oz) 1 applic TOPICAL Q6HR PRN PRN Reason: Pain Last Admin: 10/24/20 09:12 Dose: 1 applic Documented by: Metoprolol Tartrate (Metoprolol Tartrate 25 Mg Tab) 25 mg PO TID [facility] Last Admin: 10/28/20 21:33 Dose: 25 mg Documented by: Metronidazole (Metronidazole 500 Mg Tab) 500 mg PO TID [facility] Last Admin: 10/28/20 21:31 Dose: 500 mg Documented by: Midodrine (Midodrine 5 Mg Tab) 10 mg PO Q8HR [facility] Last Admin: 10/28/20 21:35 Dose: 10 mg Documented by: Miscellaneous Information (Potassium Replacement Protocol 1 Each Misc) 1 each MISCELLANE DAILY PRN; Protocol PRN Reason: Per Protocol Naloxone HCl (Naloxone 0.4 Mg/Ml 1 Ml Vial) 0.2 mg IV Q2M PRN PRN Reason: Opioid Reversal Octreotide Acetate (Octreotide 100 Mcg/Ml Inj) 100 mcg SQ Q8HR [facility] Last Admin: 10/28/20 17:28 Dose: 100 mcg Documented by: Ondansetron HCl (Ondansetron 4 Mg/2 Ml Vial) 4 mg IVP Q8HR PRN PRN Reason: Nausea And Vomiting Last Admin: 10/11/20 03:52 Dose: 4 mg Documented by: Quetiapine Fumarate (Quetiapine 25 Mg Tab) 25 mg PO HS [facility] Last Admin: 10/28/20 21:31 Dose: 25 mg Documented by: Sodium Chloride (Sodium Chloride Tab 1 Gm Tab) 1 gm PO TID [facility] Last Admin: 10/28/20 21:31 Dose: 1 gm Documented by: Tamsulosin HCl (Tamsulosin 0.4 Mg Cap.Er.24h) 0.4 mg PO -BRKFST [facility] Last Admin: 10/28/20 08:57 Dose: 0.4 mg Documented by: On examination: VITAL SIGNS: 98, 77, 16, 103/66, 77% on trach collar GENERAL APPEARANCE: Sitting up in bed, awake, HEENT:Trach collar with shield EYES: Pupils equal. Conjunctiva normal. NECK: JVD not raised. Mass not palpable. RESPIRATORY: Respiratory effort increased Lungs decreased breath sounds CARDIOVASCULAR: First and second sounds normal. No edema. ABDOMEN: Soft. Liver and spleen not palpable. Ileostomy-with yellow stools . PSYCHIATRY: Alert and oriented x3. Mood and affect tired INVESTIGATIONS, reviewed in the clinical context: October 28: WBC 8.4 hemoglobin 9.6 potassium 4.1 creatinine 1.51 October 27: WBC 7.2 hemoglobin 9 platelets 233 potassium 3.7 creatinine 1.69 October 20: White count 13.2 hemoglobin 9.4 platelets 206 potassium 4 creatinine 1.48 White count 7.1 hemoglobin 8.7 platelets 256 potassium 3.8 bicarbonate 20 bun 33 creatinine 3.17 Sputum culture-positive for Staphylococcus aureus MSSA, Klebsiella Pneumoniae Previous labs: White count 16.6 hemoglobin 9.9 platelets 584 bun 100 creatinine 3.18 Coronavirus PCR-not detected Renal ultrasound-normal bilateral renal ultrasound Assessment and plan: -Hypotensive shock -better. remains off norepinephrine IV , on midodrine- -Abdominal wound at surgical incision site, followed by general surgery with local dressing -History of ischemic small bowel with evidence of pneumatosis status post small bowel resection on 07/24/2020 -Ileostomy for intraperitoneal hemorrhage and small bowel ischemia status post exploratory laboratory or short of periportal cavity on 08/02/2020 -Coronary artery disease with bypass in July 2020, and Lopressor. Aspirin -Acute hypoxic respiratory failure secondary to pneumonia, continue with oxygen supplementation, currently with the trach collar, 28% -Anemia secondary to chronic kidney disease , follow H&H -Acute kidney injury secondary to ATN secondary to hypotension and hemodynamic instability - Creatinine 1.48 -Chronic kidney disease stage III the baseline creatinine of 1.2-1.5 secondary to nephrosclerosis -Paroxysmal atrial fibrillation with rapid ventricular rate on amiodarone by mouth, Lopressor, converted to sinus rhythm. Patient has been in and out of rapid A. fib. -Hypernatremia secondary to decreased oral water intake. Receiving free water- improved -Possible aspiration pneumonia, sputum positive for MSSA and Klebsiella pneumoniae., Causing sepsis IV Zosyn-changed to IV cefepime-completed course -Silent aspiration detected by barium study. 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 increase Questran to 4 g 4 times a day -DO NOT RESUSCITATE IV fluids stopped. Increase free fluids to the PEG tube. Authorization for discharge has not come through.
[2020-10-28 23:43] LABS: Glucose,Whole Blood 173 mg/dL (75-99)
[2020-10-29 05:50] LABS: Glucose,Whole Blood 146 mg/dL (75-99)
[2020-10-29] MEDS: ACETAMINOPHEN TAB 325 MG TAB PO PRN ×2 (05:52→21:05)
[2020-10-29] MEDS: LEVOTHYROXINE 50 MCG TAB PEG/G-TUBE SCH (05:52)
[2020-10-29] MEDS: DIPHENOX-ATROP 2.5-0.025 MG 1 EACH TAB PO SCH ×4 (05:52→23:54)
[2020-10-29] MEDS: INSULIN ASPART (NovoLOG) 100 UNIT/ML VIAL SQ SCH ×4 (05:52→23:57)
[2020-10-29] MEDS: METHYL SALICYLATE/MENTHOL CREAM 5 OZ TOPICAL PRN (06:03)
[2020-10-29 06:21] LABS: Albumin 2.4 g/dL (3.5-5.0); Calcium 8.4 mg/dL (8.4-10.2); Magnesium 1.5 mg/dL (1.6-2.3); Phosphorus 2.5 mg/dL (2.5-4.5); Potassium 3.7 mmol/L (3.5-5.1); Total Bilirubin 0.4 mg/dL (0.2-1.3); Total Protein 5.5 g/dL (6.3-8.2)
[2020-10-29] MEDS: IPRATROPIUM-ALBUTEROL 3 ML NEB INHALATION SCH ×4 (07:35→21:17)
[2020-10-29] MEDS: BUDESONIDE 1 MG/2 ML NEBU INHALATION SCH ×2 (07:35→21:17)
[2020-10-29] MEDS: LIDOCAINE 5% PATCH TOPICAL SCH (08:08)
[2020-10-29] MEDS: TAMSULOSIN 0.4 MG CAP.ER.24H PO SCH (08:10)
[2020-10-29] MEDS: SODIUM CHLORIDE TAB 1 GM TAB PO SCH ×3 (08:10→21:05)
[2020-10-29] MEDS: AMIODARONE 200 MG TAB PO SCH ×2 (08:10→21:04)
[2020-10-29] MEDS: ASPIRIN 81 MG PO SCH (08:10)
[2020-10-29] MEDS: APIXABAN 5 MG TAB PO SCH ×2 (08:10→21:04)
[2020-10-29] MEDS: METOPROLOL TARTRATE 25 MG TAB PO SCH ×3 (08:10→21:05)
[2020-10-29] MEDS: CHOLESTYRAMINE (WITH SUGAR) 4 GM PACKET PO SCH ×4 (08:10→21:04)
[2020-10-29] MEDS: metroNIDAZOLE 500 MG TAB PO SCH (08:10)
[2020-10-29] MEDS: MIDODRINE 5 MG TAB PO SCH ×3 (08:10→23:53)
[2020-10-29] MEDS: OCTREOTIDE 100 MCG/ML INJ SQ SCH ×3 (08:22→23:57)
--- NOTE | 2020-10-29 09:44 | P.PN ---
Subjective Progress Note Date: 10/29/20 Principal diagnosis: This is a 80-year-old male with acute kidney injury secondary to sepsis and pneumonia. He was initially seen by us in 10/02/2020, he had been admitted from a alf because of shortness of breath, A. fib rapid vascular and the response. This is a pleasant 80 years old male with past medical history of coronary artery disease, COPD, diabetes mellitus, hyperlipidemia, hypertension, hypothyroidism, coronary artery disease status post cardiac cath and stent placement. He recently underwent double coronary artery bypass grafting for his triple-vessel coronary artery disease. He was in the hospital from 07/18/20- 08/25/2020 pt has tracheostomhy and PEG tube , Currently he is on a PEG tube feeding 90 mL an hour +250 mL of free water every 6 hours. He was taken off of IV fluids to see if he can be discharged home. His last creatinine available is from 2 days ago when it was stable at 1.69, this is baseline. He is feeling fairly comfortable otherwise denies any complaints. He is awake alert oriented. No abdominal pain. He is nothing by mouth because of the PEG feeding. He remains somewhat hypotensive pressures in the 90s afebrile His intake 0 and total output is 2500, his Urine output is 1220 stool output is 1218 Objective - Vital Signs Vital signs: Vital Signs Temp 98 F 10/29/20 08:00 Pulse 90 10/29/20 08:00 Resp 18 10/29/20 08:00 BP 98/54 10/29/20 08:00 Pulse Ox 94 L 10/29/20 08:00 Intake & Output 10/28/20 10/29/20 10/29/20 17:59 06:59 18:59 Intake Total 360 Output Total 2500 Balance -2140 Weight Intake: IV Lactated Ringers 1,000 ml @ 100 mls/hr IV .Q10H [facility] Rx#:[id number] Intake, IV Titration Amount Magnesium Sulfate-D5w Pmx 1 gm In Dextrose/Water 1 100ml.bag @ 100 mls/hr IVPB Q1H [facility] Rx#: [id number] Oral Tube Feeding 360 Other Output: Urine Stool Urine/Stool Mix 2500 Other: Voiding Method # Voids Examination is awake alert oriented comfortable he has a tracheostomy tube He is able to speak HEENT exam no JVP neck is supple no facial asymmetry Lungs clear to auscultation good air entry bilaterally Heart sounds unremarkable Abdomen soft nontender is effective and her ileostomy. Extremity exam reveals no edema Neurologically awake alert oriented - Labs CBC & Chem 7: 10/28/20 12:18 10/29/20 05:40 Labs: Abnormal Lab Results - Last 24 Hours (Table) 10/28/20 10/28/20 10/28/20 Range/Units 11:54 12:18 12:18 RBC 3.23 L (4.30-5.90) m/uL Hgb 9.6 L (13.0-17.5) gm/dL Hct 29.6 L (39.0-53.0) % RDW 18.5 H (11.5-15.5) % Lymphocytes # 0.7 L (1.0-4.8) k/uL Sodium 134 L (137-145) mmol/L BUN 55 H (9-20) mg/dL Creatinine 1.51 H (0.66-1.25) mg/dL Glucose 137 H (74-99) mg/dL POC Glucose (mg/dL) 148 H (75-99) mg/dL Magnesium 0.5 L* (1.6-2.3) mg/dL Total Protein 5.5 L (6.3-8.2) g/dL Albumin 2.5 L (3.5-5.0) g/dL 10/28/20 10/28/20 10/28/20 Range/Units 16:26 20:28 23:42 RBC (4.30-5.90) m/uL Hgb (13.0-17.5) gm/dL Hct (39.0-53.0) % RDW (11.5-15.5) % Lymphocytes # (1.0-4.8) k/uL Sodium (137-145) mmol/L BUN (9-20) mg/dL Creatinine (0.66-1.25) mg/dL Glucose (74-99) mg/dL POC Glucose (mg/dL) 129 H 131 H 173 H (75-99) mg/dL Magnesium (1.6-2.3) mg/dL Total Protein (6.3-8.2) g/dL Albumin (3.5-5.0) g/dL 10/29/20 10/29/20 Range/Units 05:40 05:49 RBC (4.30-5.90) m/uL Hgb (13.0-17.5) gm/dL Hct (39.0-53.0) % RDW (11.5-15.5) % Lymphocytes # (1.0-4.8) k/uL Sodium 133 L (137-145) mmol/L BUN 51 H (9-20) mg/dL Creatinine 1.43 H (0.66-1.25) mg/dL Glucose 134 H (74-99) mg/dL POC Glucose (mg/dL) 146 H (75-99) mg/dL Magnesium 1.5 L (1.6-2.3) mg/dL Total Protein 5.5 L (6.3-8.2) g/dL Albumin 2.4 L (3.5-5.0) g/dL Assessment and Plan Assessment: Impression 1. Acute kidney injury secondary to pneumonia sepsis and large-volume ileostomy drainage. Creatinine has improved to 1.43 2. Chronic kidney disease secondary to nephrosclerosis Baseline creatinine is about 1.5 3. Large ileostomy drainage about 2- 3 L per day. 4. Mild degree of hyponatremia secondary to acute kidney injury 5. Ischemic bowel status post ileostomy the July 2020. 6. History of coronary artery disease, COPD, paroxysmal atrial fibrillation, sacral DPO. Recommendation 1. Continue current feeding at 90 mL an hour through the PEG as well as free water 250 mL every 6 hours. 2. Continues sore tablet 1 g 3 times a day 2 induce fluid retention and improve his intravascular volume and he'll need weekly closely followed up he is discharged to the alf with a repeat set of renal panel in 2 days' as well as today we need to draw her labs and to be reported to me before he is discharged
[2020-10-29 11:54] LABS: Glucose,Whole Blood 176 mg/dL (75-99)
--- NOTE | 2020-10-29 14:17 | P.PN ---
Progress Note - Text Progress Note Date: 10/29/20 The patient's persistent high output through the ileostomy. He has no complaints of abdominal pain. On exam vital signs are stable. Abdomen soft. Midline wound is healing. Patient will undergo reversal of ileostomy tomorrow.
--- NOTE | 2020-10-29 15:09 | P.PN ---
Subjective Progress Note Date: 10/29/20 Principal diagnosis: Acute on chronic hypoxic respiratory failure secondary to left lower lobe pneumonia and sepsis. 10/22/2020, the patient was able to tolerate some full liquid diet. We did a bedside swallow evaluation the patient was able to swallow. We will advance his diet today. He remains on a 28% trach collar and he continues to have rest or secretions. No new cultures from his sputum and the last culture was positive for Radha and the patient remains on a combination of IV cefepime and Flagyl. He has a high output ileostomy. He is still on vital AF. He is on Eliquis in addition to metoprolol and amiodarone regarding his atrial fibrillation. His rate is controlled and he is and sinus rhythm for now. Abdominal hematoma is stable. We are still taking care of his stage IV sacral decub ulcer and stage II right ulcer. His abdominal wound is also healing. No fever. Hemoglobin is stable at 9.5. White cell count stable at 12.7. He has adequate strength in his upper extremity. He seems to be getting stronger on a daily basis. Patient was reevaluated today on 10/23/2020, remains in the ICU, he is on 28% trach collar. Remains on tube feeds, and full liquid diet, however the patient is aspirating according to the speech therapist, and he failed his swallow evaluation, hence I would hold his liquid diet for now. And continue enteral feeding via PEG tube. His IV fluid is all are at 50 mL per hour. Patient seems to be in no distress, however he seems to be concerned about his sacral decubitus ulcer which is a stage III or 4, on his coccyx, and that being addressed by wound care staff. And also seen by Dr. Dempsey no debridement is recommended. Chest x-ray showed left lower lobe atelectasis and small pleural effusion. CBC is relatively normal. The left lites are normal. However his BUN is 67 creatinine is 1.64 Patient was reevaluated today on 10/24/2020, remains in the ICU, remains on 28% trach collar, remains on Flagyl for his aspiration pneumonia, patient is supposed to have repeat swallow evaluation. His IV fluid is all are at 100 mL per hour. Patient seems to be doing better today compared to the last few days. Continues to have wound care for his coccyx stage III decubitus ulcer. Patient continues to have significant amount of copious amount of output from his ileostomy almost 4.3 L in the last 24 hours. And IV fluid was increased today. I held his oral feedings yesterday because of potential aspiration, awaiting the repeat swallow evaluation. Clinically however the patient seems to be doing better. CBC is relatively normal left lites are normal BUN is 72 creatinine is 1.72. Patient was reevaluated today on 10/25/2020, remains in the ICU, remains on trach collar at 28%, remains on all are at 100 mL per hour, remains on enteral feeding via PEG tube, continues to have significant output from his colostomy. Patient had about 2.90 L over the last 24 hours. Reevaluated yesterday again by speech therapy, patient is clearly having silent aspiration, and recommended that we continue to hold oral feedings for now. Continue enteral feeding via PEG tube. Multiple maneuvers have been attempted to control his output from the colostomy, but none of it seems to work. Hence I suggested we keep fluids at the same rate. And continue enteral feeding. Labs today showed a relatively normal CBC is relatively normal electrolytes, BUN remains at 70 creatinine is 1.78. Reevaluated today on 10/26/2020, patient remains on trach collar at 28%, continues to have significant volume output from his colostomy. Remains on IV fluid at 100 mL/h of lactated Ringer's. Patient is mostly on enteral feeding via PEG tube, and since he failed his swallow evaluation, no oral feeding anymore. Patient was placed on Questran for his significant GI output. And he is also on Flagyl for his aspiration pneumonia. Clinically the patient is doing well, and I believe at this point should [facility] Reevaluated today on 10/27/2020, patient remains in the ICU, remains on 28% trach collar, he is in sinus rhythm, he has significant ostomy output, and significant urinary output, remains on LR at 100 mL per hour. Continues to have over 2.1 L of output from his ostomy. Surgery is considering reversal for his ileostomy, however I discussed the situation with the surgeon and with the thoracic surgeon as well as the admitting physician, we seem to be all in agreement to wait at least a month of rehabilitation, make sure the patient is a bit stronger before he goes back to oral are. I believe the patient is ready to be transferred back to rehab, and antibiotics to be continued as per infectious disease on the case. He may not even need any antibiotics at this point. CBC is normal left lites are normal renal profile is improving with BUN down to 66 creatinine is down to 1.6. His last sputum culture was on October 03 and I was positive for staph aureus and Klebsiella pneumonia both were treated. Patient was reevaluated today on 10/28/2020, remains in the ICU, he remains on 28% trach collar. Continues to have significant output from his ostomy. Patient remains on IV fluids in the 100 mL per hour. There is a bit of a concern that if his IV fluid is to be placed on hold, patient would become dehydrated and negative fluid balance within a short period of time since his ileostomy output is so significant. Hence there is a bit of reluctance about sending the patient back to snf at this point, and I'm suggesting possibly inpatient rehab consider sending the patient to [facility] rehabilitation with Dr. Lan. This is to be addressed by his admitting physician. Clinically the patient is doing great, his labs are excellent. Patient is not in any form of distress Patient was reevaluated today on 10/16/2020, patient is now on the regular medical floor, he is on trach collar at 28%, no significant changes over the last 24 hours, patient continues to have a significant output from his ostomy. And the admitting physician is concerned that the patient will not be able to keep up with output especially if his IV fluid is discontinued. We are barely making up for his output by giving him enteral feeding via PEG tube, in addition he is receiving 100 mL an hour of LR. Otherwise the patient will get dehydrated with a matter of days and will and the back in the hospital discharge. Hence Dr. Salinas is going to discuss possibly reversal of his colostomy with the surgeon. Labs today were reviewed, renal profile continues to improve steadily, BUN is 51 creatinine is 1.43. The rest of the labs are unremarkable. Objective - Vital Signs Vital signs: Vital Signs Temp 97.7 F 10/29/20 12:00 Pulse 69 10/29/20 12:00 Resp 18 10/29/20 12:54 BP 110/57 10/29/20 12:00 Pulse Ox 97 10/29/20 12:00 Intake & Output 10/28/20 10/29/20 10/29/20 17:59 06:59 18:59 Intake Total 360 Output Total 2700 Balance -2340 Weight Intake: IV Lactated Ringers 1,000 ml @ 100 mls/hr IV .Q10H WADE Rx#:[id number] Intake, IV Titration Amount Magnesium Sulfate-D5w Pmx 1 gm In Dextrose/Water 1 100ml.bag @ 100 mls/hr IVPB Q1H WADE Rx#: [id number] Oral Tube Feeding 360 Other Output: Urine Stool 200 Urine/Stool Mix 2500 Other: Voiding Method # Voids - Exam Physical Exam: Revealed 80-year-old white male pleasant, on trach collar, 28% FiO2 HEENT:[Neck is supple.] [No neck masses.] [No thyromegaly.] [No JVD.] Tracheostomy is intact. Chest: Symmetrical chest expansion, crackles and rhonchi noted bilaterally especially at the left base Cardiac Exam: [Normal S1 and S2, no S3 gallop, no murmur.] Abdomen: [Soft, nontender, no megaly, no rebound, no guarding, normal bowel sounds.] Surgical scar is noted in the mid abdomen, significant output is noted from his right ileostomy, patient has a fecal management system applied. Extremities: [No clubbing, 1+ bipedal edema, no cyanosis.] Neurological Exam: Alert and oriented 3. [No focal neurologic deficit.] Psychiatric: Normal mood, affect and normal mental status examination. Skin:stage III sacral decubitus ulcer 35 cm - Labs CBC & Chem 7: 10/28/20 12:18 10/29/20 05:40 Labs: Abnormal Lab Results - Last 24 Hours (Table) 10/28/20 10/28/20 10/28/20 Range/Units 16:26 20:28 23:42 Sodium (137-145) mmol/L BUN (9-20) mg/dL Creatinine (0.66-1.25) mg/dL Glucose (74-99) mg/dL POC Glucose (mg/dL) 129 H 131 H 173 H (75-99) mg/dL Magnesium (1.6-2.3) mg/dL Total Protein (6.3-8.2) g/dL Albumin (3.5-5.0) g/dL 10/29/20 10/29/20 10/29/20 Range/Units 05:40 05:49 11:52 Sodium 133 L (137-145) mmol/L BUN 51 H (9-20) mg/dL Creatinine 1.43 H (0.66-1.25) mg/dL Glucose 134 H (74-99) mg/dL POC Glucose (mg/dL) 146 H 176 H (75-99) mg/dL Magnesium 1.5 L (1.6-2.3) mg/dL Total Protein 5.5 L (6.3-8.2) g/dL Albumin 2.4 L (3.5-5.0) g/dL Assessment and Plan Assessment: Impression: Hypotension secondary to sepsis secondary to left lower lobe pneumonia, also suspect significant component of hypovolemia in addition to his sepsis, strongly doubt septic shock. Acute on chronic hypoxic respiratory failure secondary to pneumonia and underlying COPD. Acute left lower lobe pneumonia, secondary to MSSA, and Klebsiella pneumonia Sepsis secondary to pneumonia involving the left lower lobe. Acute on chronic kidney injury secondary to sepsis. Moderate severe COPD. History of triple-vessel coronary artery disease, bypass surgery on 07/18/2020 wi th multiple postoperative complications History of tracheostomy mostly because of failure to wean. Benign essential hypertension. Type 2 diabetes. Dyslipidemia. Chronic atrial fibrillation. On amiodarone and on anticoagulation therapy History of hypothyroidism. History of ileostomy on 08/02/2020. Chronic anemia Stage IV decubitus ulcer. Stage II pressure ulcer on the right heel. Recommendation: Continue enteral feeding via PEG tube. Continue tracheostomy care. Continue IV fluids. Continue to monitor his output and his intake closely. Continue present supportive care measures. Continue physical therapy Continue GI and DVT prophylaxis. Continue bronchodilators. Continue amiodarone. I discussed his condition today with Dr. Salinas, and he is going to discuss it again with general surgery about possible reversal of colostomy while the patient is inpatient. Time with Patient: Less than 30
[2020-10-29 16:39] LABS: Glucose,Whole Blood 128 mg/dL (75-99)
[2020-10-29] MEDS: ATORVASTATIN 40 MG TAB PEG/G-TUBE SCH (21:04)
[2020-10-29] MEDS: QUEtiapine 25 MG TAB PO SCH (21:04)
[2020-10-29] MEDS: FAMOTIDINE 20 MG TAB PO SCH (21:04)
[2020-10-29] MEDS: MELATONIN 3 MG TABLET PO PRN (21:05)
--- NOTE | 2020-10-29 21:42 | P.PN ---
Progress Note - Text Progress Note Date: 10/29/20 Interval history: This is a pleasant 80 years old male with past medical history of coronary art fuad disease, COPD, diabetes mellitus, hyperlipidemia, hypertension, hypothyroidism, coronary artery disease status post cardiac cath and stent placement. He recently underwent double coronary artery bypass grafting for his triple-vessel coronary artery disease. He was in the hospital from 07/18/20- 08/25/2020 pt has tracheostomhy and PEG tube , Information were obtained with the help of at bedside, he presents with confusion, and a lot of secretion Why he states that after been discharged from acute and he went to [facility] aren't states therefore one month and 5 days and then he was discharged a few days ago to skilled nursing at [facility] on Friday, however over the weekend he has more congestion, he has weak cough and needed frequent suctioning, patient was able to talk weekly his little confused but he can't communicate through gesture, he denies pain but he is tachypneic He has tracheostomy, PEG tube and try to colostomy. Admitted with-hypotension secondary to severe sepsis secondary to pneumonia, aspiration pneumonia, acute hypoxic respiratory failure, acute kidney injury secondary to ATN, elevated sodium, increased lactic acid, elevated troponin felt to be from tachycardia. Recent history of intraperitoneal hemorrhage status post laboratory with washout and ileostomy on 08/02/2020. Tracheostomy. C. diff ruled out. Recurrent A. fib. She was able to talk after covering his tracheostomy. Patient started on full liquids. Medical floor: On trach shield with secretions. Remains nothing by mouth. 2 feeding continuous. Liquid stools persist. Discussed with Dr. Galvan and dinner Dr. Dempsey. Given that patient has a significant stool output. I highly doubt patient will get better of his discharge. We all agreed that patient should proceed with surgery as soon as possible. LDL but a chance of recovery understanding that he is a high risk for surgery. Review of systems: Was done for constitutional, cardiovascular, GI, pulmonary. relevant finding as above Active Medications Acetaminophen (Acetaminophen Tab 325 Mg Tab) 650 mg PO Q6HR PRN PRN Reason: Fever and/ or Pain Last Admin: 10/29/20 21:05 Dose: 650 mg Documented by: Hydrocodone Bitart/Acetaminophen (Hydrocodone/Apap 5-325mg 1 Each Tab) 1 each PO Q6HR PRN PRN Reason: Pain Last Admin: 10/26/20 01:03 Dose: 1 each Documented by: Albuterol/Ipratropium (Ipratropium-Albuterol 3 Ml Neb) 3 ml INHALATION RT-QID [facility] Last Admin: 10/29/20 21:17 Dose: 3 ml Documented by: Albuterol/Ipratropium (Ipratropium-Albuterol 3 Ml Neb) 3 ml INHALATION RT-Q2H PRN PRN Reason: Shortness Of Breath Or Wheezing Last Admin: 10/03/20 21:27 Dose: 3 ml Documented by: Amiodarone HCl (Amiodarone 200 Mg Tab) 400 mg PO BID [facility] Last Admin: 10/29/20 21:04 Dose: 400 mg Documented by: Apixaban (Apixaban 5 Mg Tab) 5 mg PO BID [facility] Last Admin: 10/29/20 21:04 Dose: 5 mg Documented by: Aspirin (Aspirin 81 Mg) 81 mg PO DAILY [facility] Last Admin: 10/29/20 08:10 Dose: 81 mg Documented by: Atorvastatin Calcium (Atorvastatin 40 Mg Tab) 40 mg PEG/G-TUBE HS@2000 [facility] Last Admin: 10/29/20 21:04 Dose: 40 mg Documented by: Budesonide (Budesonide 1 Mg/2 Ml Nebu) 1 mg INHALATION RT-BID [facility] Last Admin: 10/29/20 21:17 Dose: 1 mg Documented by: Cholestyramine Resin (Cholestyramine (With Sugar) 4 Gm Packet) 4 gm PO QID [facility] Last Admin: 10/29/20 21:04 Dose: 4 gm Documented by: Darbepoetin Alex (Darbepoetin Alex 40 Mcg/0.4 Ml Syringe) 40 mcg SQ Q7D [facility] Last Admin: 10/24/20 09:16 Dose: 40 mcg Documented by: Diphenoxylate HCl/Atropine (Diphenox-Atrop 2.5-0.025 Mg 1 Each Tab) 1 each PO Q6HR [facility] Last Admin: 10/29/20 17:10 Dose: Not Given Documented by: Famotidine (Famotidine 20 Mg Tab) 20 mg PO HS [facility] Last Admin: 10/29/20 21:04 Dose: 20 mg Documented by: Insulin Aspart (Insulin Aspart (Novolog) 100 Unit/Ml Vial) 0 unit SQ Q6H [facility]; Protocol Last Admin: 10/29/20 17:41 Dose: Not Given Documented by: Levothyroxine Sodium (Levothyroxine 50 Mcg Tab) 50 mcg PEG/G-TUBE DAILY@0600 [facility] Last Admin: 10/29/20 05:52 Dose: 50 mcg Documented by: Lidocaine (Lidocaine 5% Patch) 1 patch TOPICAL DAILY [facility] Last Admin: 10/29/20 08:08 Dose: 1 patch Documented by: Melatonin (Melatonin 3 Mg Tablet) 3 mg PO HS PRN PRN Reason: Insomnia Last Admin: 10/29/20 21:05 Dose: 3 mg Documented by: Methyl Salicylate (Methyl Salicylate/Menthol Cream 5 Oz) 1 applic TOPICAL Q6HR PRN PRN Reason: Pain Last Admin: 10/29/20 06:03 Dose: 1 applic Documented by: Metoprolol Tartrate (Metoprolol Tartrate 25 Mg Tab) 25 mg PO TID [facility] Last Admin: 10/29/20 21:05 Dose: 25 mg Documented by: Midodrine (Midodrine 5 Mg Tab) 10 mg PO Q8HR [facility] Last Admin: 10/29/20 15:20 Dose: 10 mg Documented by: Miscellaneous Information (Potassium Replacement Protocol 1 Each Misc) 1 each MISCELLANE DAILY PRN; Protocol PRN Reason: Per Protocol Naloxone HCl (Naloxone 0.4 Mg/Ml 1 Ml Vial) 0.2 mg IV Q2M PRN PRN Reason: Opioid Reversal Octreotide Acetate (Octreotide 100 Mcg/Ml Inj) 100 mcg SQ Q8HR [facility] Last Admin: 10/29/20 15:23 Dose: 100 mcg Documented by: Ondansetron HCl (Ondansetron 4 Mg/2 Ml Vial) 4 mg IVP Q8HR PRN PRN Reason: Nausea And Vomiting Last Admin: 10/11/20 03:52 Dose: 4 mg Documented by: Quetiapine Fumarate (Quetiapine 25 Mg Tab) 25 mg PO HS [facility] Last Admin: 10/29/20 21:04 Dose: 25 mg Documented by: Sodium Chloride (Sodium Chloride Tab 1 Gm Tab) 1 gm PO TID [facility] Last Admin: 10/29/20 21:05 Dose: 1 gm Documented by: Tamsulosin HCl (Tamsulosin 0.4 Mg Cap.Er.24h) 0.4 mg PO -BRKFST [facility] Last Admin: 10/29/20 08:10 Dose: 0.4 mg Documented by: On examination: VITAL SIGNS: 97.7, 69, 18, 110 x 57, 97% on trach collar GENERAL APPEARANCE: Sitting up in bed, awake, HEENT:Trach collar with shield EYES: Pupils equal. Conjunctiva normal. NECK: JVD not raised. Mass not palpable. RESPIRATORY: Respiratory effort increased Lungs decreased breath sounds CARDIOVASCULAR: First and second sounds normal. No edema. ABDOMEN: Soft. Liver and spleen not palpable. Ileostomy-with yellow stools . PSYCHIATRY: Alert and oriented x3. Mood and affect tired INVESTIGATIONS, reviewed in the clinical context: October 28: WBC 8.4 hemoglobin 9.6 potassium 4.1 creatinine 1.51 October 27: WBC 7.2 hemoglobin 9 platelets 233 potassium 3.7 creatinine 1.69 October 20: White count 13.2 hemoglobin 9.4 platelets 206 potassium 4 creatinine 1.48 White count 7.1 hemoglobin 8.7 platelets 256 potassium 3.8 bicarbonate 20 bun 33 creatinine 3.17 Sputum culture-positive for Staphylococcus aureus MSSA, Klebsiella Pneumoniae Previous labs: White count 16.6 hemoglobin 9.9 platelets 584 bun 100 creatinine 3.18 Coronavirus PCR-not detected Renal ultrasound-normal bilateral renal ultrasound Assessment and plan: -Hypotensive shock -better. remains off norepinephrine IV , on midodrine- -Abdominal wound at surgical incision site, followed by general surgery with local dressing -History of ischemic small bowel with evidence of pneumatosis status post small bowel resection on 07/24/2020 -Ileostomy for intraperitoneal hemorrhage and small bowel ischemia status post exploratory laboratory or short of periportal cavity on 08/02/2020 -Coronary artery disease with bypass in July 2020, and Lopressor. Aspirin -Acute hypoxic respiratory failure secondary to pneumonia, continue with oxygen supplementation, currently with the trach collar, 28% -Anemia secondary to chronic kidney disease , follow H&H -Acute kidney injury secondary to ATN secondary to hypotension and hemodynamic instability - Creatinine 1.48 -Chronic kidney disease stage III the baseline creatinine of 1.2-1.5 secondary to nephrosclerosis -Paroxysmal atrial fibrillation with rapid ventricular rate on amiodarone by mouth, Lopressor, converted to sinus rhythm. Patient has been in and out of rapid A. fib. -Hypernatremia secondary to decreased oral water intake. Receiving free water- improved -Possible aspiration pneumonia, sputum positive for MSSA and Klebsiella pneumoniae., Causing sepsis IV Zosyn-changed to IV cefepime-completed course -Silent aspiration detected by barium study. 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 Questran to 4 g 4 times a day -DO NOT RESUSCITATE It was discussed with Dr. Dempsey and for Dr. Galvan from pulmonary. Both agreeable to proceed with surgery tomorrow. Also discussed with the patient. He does understand is a high risk. But as the best option given the circumstances. As he did not think he's been improved with rehab. Given that ileostomy remains very high output. Total time spent today about 45 minutes with over 25 minutes of discussion. Also discussed with from nephrology.
[2020-10-29 23:56] LABS: Glucose,Whole Blood 156 mg/dL (75-99)
[2020-10-30 06:05] LABS: Glucose,Whole Blood 156 mg/dL (75-99)
[2020-10-30] MEDS: DIPHENOX-ATROP 2.5-0.025 MG 1 EACH TAB PO SCH ×3 (06:27→21:15)
[2020-10-30] MEDS: INSULIN ASPART (NovoLOG) 100 UNIT/ML VIAL SQ SCH ×3 (06:27→21:15)
[2020-10-30] MEDS: LEVOTHYROXINE 50 MCG TAB PEG/G-TUBE SCH (06:27)
[2020-10-30 06:45] LABS: Anisocytosis Slight; Basophils # (A) 0.1 k/uL (0-0.2); Basophils % (A) 1 %; Eosinophils # (A) 0.2 k/uL (0-0.7); Eosinophils % (A) 3 %; HCT 28.8 % (39.0-53.0); HGB 9.5 gm/dL (13.0-17.5); Lymphocytes # (A) 0.8 k/uL (1.0-4.8); Lymphocytes % (A) 11 %; MCH 30.2 pg (25.0-35.0); MCHC 32.9 g/dL (31.0-37.0); MCV 91.8 fL (80.0-100.0); Mean Platelet Volume 7.4; Monocytes # (A) 0.7 k/uL (0-1.0); Monocytes % (A) 9 %; Neutrophils # (A) 5.8 k/uL (1.3-7.7); Neutrophils % (A) 76 %; Platelet Count 265 k/uL (150-450); RBC 3.14 m/uL (4.30-5.90); RDW 18.4 % (11.5-15.5); WBC 7.7 k/uL (3.8-10.6)
[2020-10-30 06:57] LABS: INR 1.4 (<1.2); Prothrombin Time 14.4 sec (9.0-12.0)
[2020-10-30 07:39] LABS: Albumin 2.4 g/dL (3.5-5.0); Calcium 8.5 mg/dL (8.4-10.2); Potassium 3.8 mmol/L (3.5-5.1); Total Bilirubin 0.4 mg/dL (0.2-1.3); Total Protein 5.4 g/dL (6.3-8.2)
[2020-10-30] MEDS: IPRATROPIUM-ALBUTEROL 3 ML NEB INHALATION SCH ×4 (08:09→19:25)
[2020-10-30] MEDS: BUDESONIDE 1 MG/2 ML NEBU INHALATION SCH ×2 (08:09→19:25)
[2020-10-30] MEDS: SODIUM CHLORIDE TAB 1 GM TAB PO SCH ×3 (09:44→21:59)
[2020-10-30] MEDS: AMIODARONE 200 MG TAB PO SCH ×2 (09:44→21:23)
[2020-10-30] MEDS: TAMSULOSIN 0.4 MG CAP.ER.24H PO SCH (09:45)
[2020-10-30] MEDS: CHOLESTYRAMINE (WITH SUGAR) 4 GM PACKET PO SCH ×4 (09:45→21:56)
[2020-10-30] MEDS: METOPROLOL TARTRATE 25 MG TAB PO SCH ×3 (09:45→21:21)
[2020-10-30] MEDS: MIDODRINE 5 MG TAB PO SCH ×2 (09:45→21:14)
[2020-10-30] MEDS: ASPIRIN 81 MG PO SCH (09:45)
[2020-10-30] MEDS: LIDOCAINE 5% PATCH TOPICAL SCH (09:47)
--- NOTE | 2020-10-30 10:36 | CDI ---
Documentation Clarification Form Date: 10/30/2020 09:49:55 AM From: Corinne Vidal RN CCDS Admit Date: 10/02/2020 11:26:00 AM Patient Name: Francisco Tinoco Visit Number: [id number] Discharge Date: ATTENTION: The Clinical Documentation Specialists (CDI) and [facility] Coding Staff appreciate your assistance in clarifying documentation. Please respond to the clarification below the line at the bottom and electronically sign. The CDI & [facility] Coding staff will review the response and follow-up if needed. Please note: Queries are made part of the Legal Health Record. If you have any questions, please contact the author of this message via ITS. Dr. Javier Salinas Unstageable Sacral Ulcer is documented in Dr. Zayas consult 10/23. Based on this information and the findings below, is there an additional diagnosis that is clinically appropriate for this patient? History/Risk Factors: 80-year-old male was admitted to [facility] for one month five days and then discharged to [facility]. The patient came to ED after spending a few days at [facility] for congestion, weakness and cough. Medical History: Ileostomy, Surgical dehiscence and nonhealing ulceration of abdomen. The patient has a peg tube and receiving tube feedings. Clinical Indicators: Wound Care consult 10/03: Stage 2 pressure ulcer with fatty layer exposure sacrum. Location: Sacral Wound description: The patients sacral ulcer is open with necrotic base. It is now from surrounding tissue. Overall depth cannot be stated. There is surrounding erythema such as seen with incontinence associated dermatitis and severe moisture injury. It appears that this area of erythema is recovering from moisture injury as opposed to new areas of injury or extension of the sacral ulcer. Treatment: 10/23 Specialty mattress, turning schedule [facility] Daily, documented in Dr. Zayas consult 10/23. Consults Dr. Zayas 10/23 see above in location and description. Is there an additional diagnosis that is clinically appropriate for this patient? Sacral Pressure Ulcer Stage 2 Sacral Pressure Ulcer Stage 2 evolved during admission to [facility]. Other condition, please specify Unable to determine Clinical Definitions: Stage 1 Pressure Ulcer: intact skin, non-blanching redness of local area Stage 2 Pressure Ulcer: Partial thickness, loss of dermis, pink wound bed Stage 3 Pressure Ulcer: Full thickness tissue loss Stage 4 Pressure Ulcer: Full thickness tissue loss with exposed bone, tendon, or muscle. Unstageable pressure ulcer: Full thickness tissue loss in which the base of the ulcer is covered by slough (yellow, cook, moulton, green or brown) and/or eschar (cook, brown or black) in the wound bed. (Last Revision: October 2020) Stage II pressure ulcer with fatty liver exposure sacrum MTDD
--- NOTE | 2020-10-30 11:51 | P.PN ---
Subjective Patient is seen in follow for acute kidney injury. Renal function stable. Has been voiding. Denies chest pain or shortness of breath. He is receiving tube feeding. Continues to have high output from the ileostomy. Reversal being considered. Vital signs are stable. General: The patient appeared well nourished and normally developed. HEENT: Tracheostomy noted. LUNGS: Breath sounds decreased. HEART: Rate and Rhythm are regular. ABDOMEN: Soft, no distention noted. Ileostomy noted. EXTREMITITES: No edema. Objective - Vital Signs Vital signs: Vital Signs Temp 98.2 F 10/30/20 08:00 Pulse 78 10/30/20 11:21 Resp 18 10/30/20 08:00 BP 110/57 10/30/20 08:00 Pulse Ox 100 10/30/20 08:00 Intake & Output 10/29/20 10/30/20 10/30/20 18:59 06:59 18:59 Intake Total 720 1160 Output Total 3600 1950 400 Balance -2880 -790 -400 Weight 80 kg Intake: IV 80 0.9 80 Tube Feeding 720 1080 Output: Urine 400 400 Stool 200 1550 Urine/Stool Mix 3400 Other: Voiding Method Urinal - Labs CBC & Chem 7: 10/30/20 06:07 10/30/20 06:07 Labs: Abnormal Lab Results - Last 24 Hours (Table) 10/29/20 10/29/20 10/29/20 Range/Units 11:52 16:38 23:55 RBC (4.30-5.90) m/uL Hgb (13.0-17.5) gm/dL Hct (39.0-53.0) % RDW (11.5-15.5) % Lymphocytes # (1.0-4.8) k/uL PT (9.0-12.0) sec INR (<1.2) Sodium (137-145) mmol/L BUN (9-20) mg/dL Creatinine (0.66-1.25) mg/dL Glucose (74-99) mg/dL POC Glucose (mg/dL) 176 H 128 H 156 H (75-99) mg/dL Total Protein (6.3-8.2) g/dL Albumin (3.5-5.0) g/dL 10/30/20 10/30/20 10/30/20 Range/Units 06:03 06:07 06:07 RBC 3.14 L (4.30-5.90) m/uL Hgb 9.5 L (13.0-17.5) gm/dL Hct 28.8 L (39.0-53.0) % RDW 18.4 H (11.5-15.5) % Lymphocytes # 0.8 L (1.0-4.8) k/uL PT 14.4 H (9.0-12.0) sec INR 1.4 H (<1.2) Sodium (137-145) mmol/L BUN (9-20) mg/dL Creatinine (0.66-1.25) mg/dL Glucose (74-99) mg/dL POC Glucose (mg/dL) 156 H (75-99) mg/dL Total Protein (6.3-8.2) g/dL Albumin (3.5-5.0) g/dL 10/30/20 Range/Units 06:07 RBC (4.30-5.90) m/uL Hgb (13.0-17.5) gm/dL Hct (39.0-53.0) % RDW (11.5-15.5) % Lymphocytes # (1.0-4.8) k/uL PT (9.0-12.0) sec INR (<1.2) Sodium 135 L (137-145) mmol/L BUN 53 H (9-20) mg/dL Creatinine 1.40 H (0.66-1.25) mg/dL Glucose 152 H (74-99) mg/dL POC Glucose (mg/dL) (75-99) mg/dL Total Protein 5.4 L (6.3-8.2) g/dL Albumin 2.4 L (3.5-5.0) g/dL Assessment and Plan Plan: Assessment: 1. Acute kidney injury secondary to ATN secondary to hypotension and hemodynamic instability. Renal function improved from admission. Creatinine stable at 1.4 today. No hydronephrosis noted on kidney ultrasound. 2. Chronic kidney disease stage III with baseline creatinine 1.2-1.5 secondary to nephrosclerosis. 3. A. fib with RVR. Maintained on amiodarone and metoprolol. 4. Hypernatremia secondary to lack of oral water intake. Resolved. 5. Failed swallow eval maintained on tube feeding. 6. Diabetes mellitus. 7. Anemia of chronic kidney disease. Maintained on Aranesp. Status post IV iron and blood transfusion this admission. No active bleeding. 8. 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 Currently has ileostomy. Due to high output, may need reversal. 9. Sepsis secondary to pneumonia, s/p antibiotics. Plan: Maintain tube feeding. Continue to monitor renal function and urine output. Avoid nephrotoxins. No changes from nephrology standpoint.
[2020-10-30 11:57] LABS: Glucose,Whole Blood 138 mg/dL (75-99)
[2020-10-30] MEDS: OCTREOTIDE 100 MCG/ML INJ SQ SCH ×2 (14:05→21:14)
[2020-10-30] MEDS ORDERED: SODIUM CHLORIDE 0.9% 100 ML with ceFAZolin 2,000 MG IV ONE ×4 (14:25)
--- NOTE | 2020-10-30 15:22 | P.PN ---
Subjective Progress Note Date: 10/30/20 Principal diagnosis: Respiratory failure. Reevaluated today on 10/27/2020, patient remains in the ICU, remains on 28% trach collar, he is in sinus rhythm, he has significant ostomy output, and significant urinary output, remains on LR at 100 mL per hour. Continues to have over 2.1 L of output from his ostomy. Surgery is considering reversal for his ileostomy, however I discussed the situation with the surgeon and with the thoracic surgeon as well as the admitting physician, we seem to be all in agreement to wait at least a month of rehabilitation, make sure the patient is a bit stronger before he goes back to oral are. I believe the patient is ready to be transferred back to rehab, and antibiotics to be continued as per infectious disease on the case. He may not even need any antibiotics at this point. CBC is normal left lites are normal renal profile is improving with BUN down to 66 creatinine is down to 1.6. His last sputum culture was on October 03 and I was positive for staph aureus and Klebsiella pneumonia both were treated. Patient was reevaluated today on 10/28/2020, remains in the ICU, he remains on 28% trach collar. Continues to have significant output from his ostomy. Patient remains on IV fluids in the 100 mL per hour. There is a bit of a concern that if his IV fluid is to be placed on hold, patient would become dehydrated and negative fluid balance within a short period of time since his ileostomy output is so significant. Hence there is a bit of reluctance about sending the patient back to prison at this point, and I'm suggesting possibly inpatient rehab consider sending the patient to [facility] rehabilitation with Dr. Lan. This is to be addressed by his admitting physician. Clinically the patient is doing great, his labs are excellent. Patient is not in any form of distress Patient was reevaluated today on 10/16/2020, patient is now on the regular medical floor, he is on trach collar at 28%, no significant changes over the last 24 hours, patient continues to have a significant output from his ostomy. And the admitting physician is concerned that the patient will not be able to keep up with output especially if his IV fluid is discontinued. We are barely making up for his output by giving him enteral feeding via PEG tube, in addition he is receiving 100 mL an hour of LR. Otherwise the patient will get dehydrated with a matter of days and will and the back in the hospital discharge. Hence Dr. Salinas is going to discuss possibly reversal of his colostomy with the surgeon. Labs today were reviewed, renal profile continues to improve steadily, BUN is 51 creatinine is 1.43. The rest of the labs are unremarkable. Progress note dated 10/30/2020. Currently, the patient seems to be resting comfortably. He is on the general medical floor, on a trach collar at 28%. He's been stable over the last 24 hours. He continues to have significant output from his ileostomy. Apparently, the patient and his tell us today, that he will have his ileostomy reversed today. I was not aware of that. He denies any particular complaints other than his butt being sore, and his throat being dry. Initially, I believe the plan was to discharge the patient to rehab and bring him back for ileostomy reversal when he was much stronger. White count 7.7, hemoglobin 9.5, hematocrit 28.8, p latelet count 265,000. PT 14.4, INR 1.4, sodium 135, potassium 3.8, chlorides 103, CO2 25, anion gap 7, BUN 53, and creatinine 1.40. Objective - Vital Signs Vital signs: Vital Signs Temp 98.2 F 10/30/20 08:00 Pulse 78 10/30/20 11:21 Resp 18 10/30/20 08:00 BP 110/57 10/30/20 08:00 Pulse Ox 100 10/30/20 08:00 Intake & Output 10/29/20 10/30/20 10/30/20 18:59 06:59 18:59 Intake Total 720 1160 Output Total 3600 1950 800 Balance -2880 -790 -800 Weight 80 kg 80 kg Intake: IV 80 0.9 80 Tube Feeding 720 1080 Output: Urine 400 800 Stool 200 1550 Urine/Stool Mix 3400 Other: Voiding Method Urinal - Exam No acute distress, oriented. The patient is verbal. HEENT examination is grossly unremarkable. Neck supple, full range of motion. A midline tracheostomy is noted. The patient's on a trach collar at 28%. Cardiovascular examination reveals regular rhythm rate. Heart sounds are dista nt. S1-S2 normal. No S3-S4 or murmur. Heart rate 78 bpm. Pulmonary examination reveals mostly clear breath sounds. A few scattered rhonchi. No wheezes or crackles. Abdomen soft bowel sounds are heard. Extremities are intact. No cyanosis clubbing or edema. Skin without rash. He does have a significant sacral decubitus ulcer. Neurologic examination is essentially nonfocal. - Labs CBC & Chem 7: 10/30/20 06:07 10/30/20 06:07 Labs: Abnormal Lab Results - Last 24 Hours (Table) 10/29/20 10/29/20 10/30/20 Range/Units 16:38 23:55 06:03 RBC (4.30-5.90) m/uL Hgb (13.0-17.5) gm/dL Hct (39.0-53.0) % RDW (11.5-15.5) % Lymphocytes # (1.0-4.8) k/uL PT (9.0-12.0) sec INR (<1.2) Sodium (137-145) mmol/L BUN (9-20) mg/dL Creatinine (0.66-1.25) mg/dL Glucose (74-99) mg/dL POC Glucose (mg/dL) 128 H 156 H 156 H (75-99) mg/dL Total Protein (6.3-8.2) g/dL Albumin (3.5-5.0) g/dL 10/30/20 10/30/20 10/30/20 Range/Units 06:07 06:07 06:07 RBC 3.14 L (4.30-5.90) m/uL Hgb 9.5 L (13.0-17.5) gm/dL Hct 28.8 L (39.0-53.0) % RDW 18.4 H (11.5-15.5) % Lymphocytes # 0.8 L (1.0-4.8) k/uL PT 14.4 H (9.0-12.0) sec INR 1.4 H (<1.2) Sodium 135 L (137-145) mmol/L BUN 53 H (9-20) mg/dL Creatinine 1.40 H (0.66-1.25) mg/dL Glucose 152 H (74-99) mg/dL POC Glucose (mg/dL) (75-99) mg/dL Total Protein 5.4 L (6.3-8.2) g/dL Albumin 2.4 L (3.5-5.0) g/dL 10/30/20 Range/Units 11:56 RBC (4.30-5.90) m/uL Hgb (13.0-17.5) gm/dL Hct (39.0-53.0) % RDW (11.5-15.5) % Lymphocytes # (1.0-4.8) k/uL PT (9.0-12.0) sec INR (<1.2) Sodium (137-145) mmol/L BUN (9-20) mg/dL Creatinine (0.66-1.25) mg/dL Glucose (74-99) mg/dL POC Glucose (mg/dL) 138 H (75-99) mg/dL Total Protein (6.3-8.2) g/dL Albumin (3.5-5.0) g/dL Assessment and Plan Assessment: Hypotension, secondary to left lower lobe pneumonia and sepsis. Acute on chronic hypoxemic respiratory failure secondary to pneumonia and underlying COPD. Acute left lower lobe pneumonia, secondary to methicillin sensitive staph aureus, and Klebsiella. Acute on chronic kidney injury, secondary to sepsis. Moderately severe COPD. History of triple-vessel coronary disease, status post bypass surgery on 07/18/2020, with multiple postoperative complications. History of tracheostomy, secondary to failure to wean from mechanical ventilation. Benign essential hypertension. Type 2 diabetes mellitus. Hyperlipidemia. Chronic atrial fibrillation. History of hypothyroidism. Status post ileostomy, 08/02/2020. History of chronic anemia. Stage IV decubitus ulcer. Stage II pressure ulcer, right heel. Plan: Plan dated 10/30/2020. We will continue feeding the patient via the PEG tube. The patient may be going back to the operating room today for a reversal of his ileostomy. We'll continue with GI and DVT prophylaxis, continue bronchodilators and amiodarone. The patient will continue with tracheostomy care, and we will pay special attention to the decubitus ulcer on his bottom. Prognosis is guarded. He's been in the hospital now for 28 days. Additional recommendations and suggestions are forthcoming. We will continue to follow the patient. Time with Patient: Less than 30
[2020-10-30 15:30] LABS: Glucose,Whole Blood 124 mg/dL (75-99)
[2020-10-30] MEDS ORDERED: fentaNYL (PF) 50 MCG/ML 2 ML AMP IV ONE (15:54)
[2020-10-30] MEDS ORDERED: DEXAMETHASONE SOD PHOSPHATE 4 MG/ML 1 ML VIAL IV ONE (15:59)
[2020-10-30] MEDS ORDERED: ONDANSETRON 4 MG/2 ML VIAL IVP ONE (16:00)
[2020-10-30] MEDS ORDERED: ePHEDrine SULFATE/0.9% NACL/PF 50 MG/5 ML SYRINGE IV ONE (16:02)
[2020-10-30] MEDS ORDERED: NEOSTIGMINE 1 MG/ML 10 ML VIAL ONE (16:02)
[2020-10-30] MEDS ORDERED: HEPARIN SODIUM,PORCINE 5,000 UNIT/ML 1 ML VIAL ONE (16:02)
[2020-10-30] MEDS ORDERED: PHENYLEPHRINE-0.9% NACL SYG 1,000 MCG/10 ML SYRINGE ONE (16:02)
[2020-10-30] MEDS ORDERED: fentaNYL (PF) 50 MCG/ML 2 ML AMP ONE (16:02)
[2020-10-30] MEDS ORDERED: ALBUMIN HUMAN 5% (12.5gm) 250 ML BOTTLE IVPB ONE (16:02)
[2020-10-30] MEDS ORDERED: SUCCINYLCHOLINE CHLORIDE 100 MG/5 ML SYR IV ONE (16:02)
[2020-10-30] MEDS ORDERED: MIDAZOLAM 2 MG/2 ML VIAL ONE (16:02)
[2020-10-30] MEDS ORDERED: ROCURONIUM 10 MG/ML (5 ML VIAL) IV ONE (16:02)
[2020-10-30] MEDS ORDERED: ESMOLOL 100 MG/10 ML VIAL ONE (16:02)
[2020-10-30] MEDS ORDERED: GLYCOPYRROLATE 0.2 MG/ML 2 ML VIAL ONE (16:02)
[2020-10-30] MEDS ORDERED: PROPOFOL 10 MG/ML 20 ML VIAL IV ONE (16:02)
[2020-10-30] MEDS ORDERED: LIDOCAINE 1% INJ 10MG/ML (20 ML MDV) ONE (16:02)
[2020-10-30] MEDS ORDERED: LACTATED RINGERS 1,000 ML IV ONE ×3 (16:05→18:03)
[2020-10-30] MEDS ORDERED: ONDANSETRON 4 MG/2 ML VIAL IVP PRN (18:03)
[2020-10-30] MEDS ORDERED: NALOXONE 0.4 MG/ML 1 ML VIAL IV PRN (18:03)
--- NOTE | 2020-10-30 18:10 | P.OP ---
Date of Procedure: 10/30/20 Preoperative Diagnosis: High-output ileostomy Postoperative Diagnosis: High-output ileostomy Incisional hernia Extensive adhesions Procedure(s) Performed: Reversal of ileostomy Lysis of adhesions Small bowel resection Repair of incisional hernia repair partial omentectomy Placed a wound VAC Anesthesia: ENEIDA Surgeon: Anjel Dempsey Estimated Blood Loss (ml): 200 Pathology: other (Omentum, small bowel) Condition: stable Disposition: ICU Description of Procedure: The patient's placed on the operative table in supine position. He received general anesthesia. His abdomen was prepped and draped usual fashion. The abdomen was entered through a midline incision. The patient a previous midline wound. Several of the old PDS sutures were removed. Fascia was opened. There was a small incisional hernia located superior portion of the incision. There were extensive adhesions throughout the upper cavity. Approximately 35 minutes operative time used to lyse adhesions. The ileostomy was then transected at the level of the fascia with a GI stapler. The terminal ileum appeared to be scarred decided to resect a 3 inch portion of the ileum that led to the ileostomy. And then the right colon was visualized. There was a very small segment of the terminal ileum next to the right colon. As side to form ileocolonic anastomosis. A [id number] functional end-to-end staple S was created using the GRACIA and TA staplers between the ileum and the right colon. At this point a piece of nonviable omentum was transected with the Enseal device and sent to pathology. The abdomen was irrigated is no bleeding seen. The fascia was closed with looped #1 PDS suture. The ileostomy was then dissected free into the pathology. The fascial defect was closed with 0 Ethibond suture. A wound VAC was placed in the ileostomy opening and in the wound. Dressing was applied. Patient top she will was sent to recovery in stable condition.
[2020-10-30] MEDS: MORPHINE SULFATE 4 MG/ML SYRINGE IVP ONE ×2 (18:32→19:40)
[2020-10-30 20:27] LABS: Glucose,Whole Blood 178 mg/dL (75-99)
[2020-10-30] MEDS: HYDROcodone/APAP 5-325MG 1 EACH TAB PO PRN (20:34)
[2020-10-30] MEDS: ATORVASTATIN 40 MG TAB PEG/G-TUBE SCH (21:15)
[2020-10-30] MEDS: HYDROmorphone 1 MG/ML 1 ML SYRINGE IVP PRN (21:20)
[2020-10-30] MEDS: FAMOTIDINE 20 MG TAB PO SCH (21:21)
[2020-10-30] MEDS: QUEtiapine 25 MG TAB PO SCH (21:59)
--- NOTE | 2020-10-30 22:56 | P.PN ---
Progress Note - Text Progress Note Date: 10/30/20 Interval history: This is a pleasant 80 years old male with past medical history of coronary art fuad disease, COPD, diabetes mellitus, hyperlipidemia, hypertension, hypothyroidism, coronary artery disease status post cardiac cath and stent placement. He recently underwent double coronary artery bypass grafting for his triple-vessel coronary artery disease. He was in the hospital from 07/18/20- 08/25/2020 pt has tracheostomhy and PEG tube , Information were obtained with the help of at bedside, he presents with confusion, and a lot of secretion Why he states that after been discharged from acute and he went to [facility] aren't states therefore one month and 5 days and then he was discharged a few days ago to residential at [facility] on Friday, however over the weekend he has more congestion, he has weak cough and needed frequent suctioning, patient was able to talk weekly his little confused but he can't communicate through gesture, he denies pain but he is tachypneic He has tracheostomy, PEG tube and try to colostomy. Admitted with-hypotension secondary to severe sepsis secondary to pneumonia, aspiration pneumonia, acute hypoxic respiratory failure, acute kidney injury secondary to ATN, elevated sodium, increased lactic acid, elevated troponin felt to be from tachycardia. Recent history of intraperitoneal hemorrhage status post laboratory with washout and ileostomy on 08/02/2020. Tracheostomy. C. diff ruled out. Recurrent A. fib. She was able to talk after covering his tracheostomy. Patient started on full liquids. Liquid stools persist. Discussed with Dr. Galvan and dinner Dr. Dempsey. Given that patient has a significant stool output. I highly doubt patient will get better of his discharge. We all agreed that patient should proceed with surgery as soon as possible. Was discussed with the patient at length. He agrees Today-so the patient this morning. Pending going on for surgery. Discussed with his . She is also agreeable to proceed for surgery. No new issues. Review of systems: Was done for constitutional, cardiovascular, GI, pulmonary. relevant finding as above Current medications reviewed in today's electronic records On examination: VITAL SIGNS: 98.2, 75, 18, 110.57, 100% on trach collar GENERAL APPEARANCE: Sitting up in bed, awake, HEENT:Trach collar with shield EYES: Pupils equal. Conjunctiva normal. NECK: JVD not raised. Mass not palpable. RESPIRATORY: Respiratory effort increased Lungs decreased breath sounds CARDIOVASCULAR: First and second sounds normal. No edema. ABDOMEN: Soft. Liver and spleen not palpable. Ileostomy-with yellow stools . PSYCHIATRY: Alert and oriented x3. Mood and affect tired INVESTIGATIONS, reviewed in the clinical context: October 30: WBC 7.7 hemoglobin 9.5 potassium 3.8 creatinine 1.4 October 28: WBC 8.4 hemoglobin 9.6 potassium 4.1 creatinine 1.51 October 27: WBC 7.2 hemoglobin 9 platelets 233 potassium 3.7 creatinine 1.69 October 20: White count 13.2 hemoglobin 9.4 platelets 206 potassium 4 creatinine 1.48 White count 7.1 hemoglobin 8.7 platelets 256 potassium 3.8 bicarbonate 20 bun 33 creatinine 3.17 Sputum culture-positive for Staphylococcus aureus MSSA, Klebsiella Pneumoniae Previous labs: White count 16.6 hemoglobin 9.9 platelets 584 bun 100 creatinine 3.18 Coronavirus PCR-not detected Renal ultrasound-normal bilateral renal ultrasound Assessment and plan: -Hypotensive shock -better. remains off norepinephrine IV , on midodrine- -Abdominal wound at surgical incision site, followed by general surgery with local dressing -History of ischemic small bowel with evidence of pneumatosis status post small bowel resection on 07/24/2020 -Ileostomy for intraperitoneal hemorrhage and small bowel ischemia status post exploratory laboratory or short of periportal cavity on 08/02/2020 -Coronary artery disease with bypass in July 2020, and Lopressor. Aspirin -Acute hypoxic respiratory failure secondary to pneumonia, continue with oxygen supplementation, currently with the trach collar, 28% -Anemia secondary to chronic kidney disease , follow H&H -Acute kidney injury secondary to ATN secondary to hypotension and hemodynamic instability - Creatinine 1.48 -Chronic kidney disease stage III the baseline creatinine of 1.2-1.5 secondary to nephrosclerosis -Paroxysmal atrial fibrillation with rapid ventricular rate on amiodarone by mouth, Lopressor, converted to sinus rhythm. Patient has been in and out of rapid A. fib. -Hypernatremia secondary to decreased oral water intake. Receiving free water- improved -Possible aspiration pneumonia, sputum positive for MSSA and Klebsiella pneumoniae., Causing sepsis IV Zosyn-changed to IV cefepime-completed course -Silent aspiration detected by barium study. 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 Questran to 4 g 4 times a day -DO NOT RESUSCITATE Patient due to go down for reversal of colostomy later this afternoon. Other medications to continue. Discussed with patient and .
[2020-10-31] MEDS: MIDODRINE 5 MG TAB PO SCH ×3 (00:05→15:33)
[2020-10-31] MEDS: DIPHENOX-ATROP 2.5-0.025 MG 1 EACH TAB PO SCH ×5 (00:05→23:56)
[2020-10-31 00:09] LABS: Glucose,Whole Blood 158 mg/dL (75-99)
[2020-10-31] MEDS ORDERED: DEXTROSE 5% IN WATER 100 ML with AMIODARONE 150 MG IV ONE (00:30)
[2020-10-31] MEDS ORDERED: AMIODARONE 360 MG in DEXTROSE 5% IN WATER 200 ML IV ONE ×2 (01:00)
[2020-10-31] MEDS: HYDROmorphone 1 MG/ML 1 ML SYRINGE IVP PRN ×3 (01:02→14:42)
[2020-10-31] MEDS: INSULIN ASPART (NovoLOG) 100 UNIT/ML VIAL SQ SCH ×4 (01:02→18:14)
[2020-10-31] MEDS: OCTREOTIDE 100 MCG/ML INJ SQ SCH ×3 (01:19→15:35)
[2020-10-31 01:32] LABS: Anisocytosis Slight; Basophils # (A) 0.1 k/uL (0-0.2); Basophils % (A) 0 %; Eosinophils % (A) 0 %; HCT 32.7 % (39.0-53.0); HGB 10.5 gm/dL (13.0-17.5); Hypochromasia Slight; Lymphocytes # (A) 0.4 k/uL (1.0-4.8); Lymphocytes % (A) 2 %; MCH 30.2 pg (25.0-35.0); MCHC 32.2 g/dL (31.0-37.0); MCV 93.8 fL (80.0-100.0); Macrocytosis Slight; Mean Platelet Volume 7.3; Monocytes # (A) 0.9 k/uL (0-1.0); Monocytes % (A) 5 %; Neutrophils # (A) 18.1 k/uL (1.3-7.7); Neutrophils % (A) 93 %; Platelet Count 314 k/uL (150-450); RBC 3.49 m/uL (4.30-5.90); RDW 18.4 % (11.5-15.5); WBC 19.6 k/uL (3.8-10.6)
[2020-10-31 01:45] LABS: Calcium 8.9 mg/dL (8.4-10.2); Potassium 4.8 mmol/L (3.5-5.1)
[2020-10-31] MEDS ORDERED: Magnesium Replacement Protocol 1 EACH MISC MISCELLANE PRN (01:56)
[2020-10-31] MEDS: MAGNESIUM SULFATE-D5W PMX 1 GM in DEXTROSE/WATER 1 100ML.BAG IVPB SCH ×3 (02:09→04:25)
[2020-10-31 05:50] LABS: Glucose,Whole Blood 177 mg/dL (75-99)
[2020-10-31] MEDS: LEVOTHYROXINE 50 MCG TAB PEG/G-TUBE SCH (06:10)
[2020-10-31] MEDS: AMIODARONE 450 MG in DEXTROSE 5% IN WATER 250 ML IV SCH ×4 (07:11→21:34)
[2020-10-31] MEDS ORDERED: LACTATED RINGERS 1,000 ML IV SCH ×2 (08:15→10:15)
[2020-10-31] MEDS: LIDOCAINE 5% PATCH TOPICAL SCH (08:33)
[2020-10-31] MEDS: MORPHINE ORAL SOLN 10 MG/5 ML CUP PO SCH ×4 (08:36→20:16)
[2020-10-31] MEDS: IPRATROPIUM-ALBUTEROL 3 ML NEB INHALATION SCH ×4 (08:36→19:45)
[2020-10-31] MEDS: BUDESONIDE 1 MG/2 ML NEBU INHALATION SCH ×2 (08:36→19:45)
[2020-10-31] MEDS: HYDROcodone/APAP 5-325MG 1 EACH TAB PO PRN (08:37)
[2020-10-31] MEDS: METOPROLOL TARTRATE 25 MG TAB PO SCH ×3 (08:45→21:10)
[2020-10-31] MEDS: ASPIRIN 81 MG PO SCH (08:45)
[2020-10-31] MEDS: TAMSULOSIN 0.4 MG CAP.ER.24H PO SCH ×2 (08:45→08:53)
[2020-10-31] MEDS: LACTATED RINGERS 1,000 ML IV SCH ×3 (08:47→23:57)
[2020-10-31] MEDS: CHOLESTYRAMINE (WITH SUGAR) 4 GM PACKET PO SCH ×4 (08:52→21:13)
[2020-10-31] MEDS: SODIUM CHLORIDE TAB 1 GM TAB PO SCH ×3 (09:03→21:10)
--- NOTE | 2020-10-31 09:41 | CONS ---
CONSULTATION This is a 80-year-old gentleman with a history of aortocoronary bypass surgery that was performed more than a month ago complicated by an acute bowel ischemia requiring surgery. He was on the floor and yesterday he had a surgery by Dr. Dempsey, which included reversal of ileostomy, lysis of adhesions, small bowel resection and repair of incisional hernia and partial omentectomy. A wound VAC was placed. He was brought into the ICU. He developed atrial fibrillation with rapid ventricular rate and he has now converted back to sinus rhythm. He is currently on a tracheostomy with a collar and maintaining sinus rhythm. He converted to sinus rhythm yesterday. From a cardiac standpoint, he remains hemodynamically stable and is receiving some IV fluids. His blood pressure was about [address] Dempsey ordered some IV fluids to be given as a bolus and patient clinically looks to be doing well. He has a lot of comorbid conditions. Please review the notes from 10/28/[address] Galvan. Apparently patient has sputum cultures in the past that were positive for Radha. He also has a known history of paroxysmal atrial fibrillation. He is currently on Eliquis 5 mg b.i.d. and was also on amiodarone orally. However, last night he was placed on IV amiodarone bolus and drip and he is currently on 0.5 mg dose IV. I am recommending that we continue this dose until it is complete for 12 or 18 hours and then switch him to oral amiodarone at 200 mg b.i.d. The patient is alert, oriented, responds to questions. Has a tracheostomy collar. PAST MEDICAL HISTORY: 1. Aortocoronary bypass surgery complicated by a bowel resection. 2. Paroxysmal atrial fibrillation. 3. Hypertension. 4. Hyperlipidemia. The patient had ileostomy reversal and bowel resection with lysis of adhesions yesterday. PHYSICAL EXAMINATION: On examination, blood pressure is about 102/60, pulse rate is about 90, appears to be sinus. HEENT: Unremarkable. Fundus was not examined. Neck is supple. There is no JVD. S1, S2 heard normally, short systolic murmur noted. Lungs reveal bilateral fair air entry. Abdomen exam was deferred. Lower extremities reveal diminished pulses. Central nervous system grossly no focal deficits. IMPRESSION: 1. Coronary artery disease, status post bypass surgery complicated by bowel resection and acute bowel ischemia. 2. Status post bowel resection, lysis of adhesions and also reversal of ileostomy yesterday. 3. Paroxysmal atrial fibrillation, now maintaining sinus rhythm. RECOMMENDATIONS: I am recommending that we switch him from IV to oral amiodarone when the IV infusion is completed to 200 mg b.i.d. Do two sets of blood cultures. Resume other medications that he was taking before including Eliquis. Prognosis remains guarded. MMODL / IJN: [id number] / SHAKA
--- NOTE | 2020-10-31 10:14 | P.PN ---
Subjective Progress Note Date: 10/31/20 Principal diagnosis: Acute on chronic hypoxic respiratory failure secondary to left lower lobe pneumonia and sepsis This is a 80-year-old white male familiar to my service, in July 2020, patient underwent elective coronary artery bypass grafting. He had a very complicated postoperative course, patient required multiple abdominal surgeries, multiple intubations, extubations, and the intubations, patient was a failure to wean, and he had multiple abdominal surgeries during his stay. Patient underwent tracheostomy, PEG tube placement, and we were able to transfer the pa maty to an extended care facility. He was at the extended care facility until about a week ago, his tracheostomy was capped, and he was transferred to [facility]. Patient has been noticing increased cough, increased shortness of breath, and significant purulent secretions from the tracheostomy tube when uncapped. O2 saturation was dipping down into the 50s and in the ER he had a saturation of 86% on 15 L high flow nasal cannula. Patient was also noted to have leukocytosis, hemoglobin was low, his troponin was slightly elevated, blood pressure was noted to be marginally low, patient was admitted initially to the cardiac floor, however supposedly he was noted to have blood pressure in the 70s systolic. Patient did receive multiple fluid boluses in the ER over 3 L were given, and we were notified about the patient on the floor having low blood pressure, I recommended transferred to the ICU planning to start the patient on norepinephrine. However over the last 12 hours in the ICU, his blood pressure has been stable patient did not require placement on any pressors. His beta blockers had been on hold because of low blood pressure, and he is maintained on amiodarone. His pro-calcitonin level was noted to be 2.60. And his chest x-ray showed left lower lobe atelectasis, suspect left lower lobe pneumonia. And he had small pleural effusions noted more so than right. Going back to his previous hospital admission, patient did have left lower lobe pneumonia and he did have left pleural effusion requiring thoracentesis once or twice. Cultures previously from the sputum were positive for Pseudomonas fluorescence/putida, sensitive to Zosyn and Levaquin and meropenem. Also sensitive to cefepime. Considering the patient's presentation with hypotension, shortness of breath, cough, abnormal chest x-ray, hypoxia, and considering his recent clinical history, we were asked to see him on consultation Patient was reevaluated today on 10/04/2020, patient remains in the ICU, he is on trach collar a 55%, patient went into atrial fibrillation with RVR yesterday, and he went on amiodarone at 1 mg/m, he also received 1 unit of packed RBCs for hemoglobin of 6.7, patient converted to sinus rhythm. Remains in sinus rhythm, patient is receiving tube feeds/Nepro at 65/65. He is also receiving free water. Chest x-ray is showing minimal improvement in the left lower lobe consolidation, clinically the patient is feeling better, he is empirically on antibiotics for healthcare acquired pneumonia/Zosyn. Previous sputum cultures were positive for Pseudomonas, hence his Zosyn was chosen as the drug of choice. CBC today showed WBC 7.2 hemoglobin 6.7, hence a unit of blood was given. Electrolytes showed low sodium but improving today is 148 from 150 to yesterday. BUN is 108 creatinine 3.4 to about the same as yesterday. Reevaluated today on 10/05/2020, patient remains in the ICU, remains on 55% trach collar. Off norepinephrine, IV fluids at KVO, tolerating enteral feeding via PEG tube, patient continues to have significant amount of tracheal secretions, he is now on Zosyn and vancomycin, as well as Zyvox. His cultures from the sputum are showing MSSA, hence we will discontinue vancomycin, keep him on Zosyn, and infectious disease to address his Zyvox. Patient may not even require Zyvox considering the culture is positive for MSSA. Chest x-ray is showing bilateral pleural effusions/small, renal functioning is slightly improved over the last 24 hours. Patient was switched to oral amiodarone, and he seems to be doing quite well, in sinus rhythm. Reevaluated today on 10/06/2020, patient remains in the ICU, remains on trach collar at 28%, sputum came back positive for Klebsiella and MSSA. Patient is on Zosyn and Zyvox. Remains on a small dose of norepinephrine at 0.01 mcg/kg/m, remains on enteral feeding/Nepro at 65 ML per hour, also receiving Questran. Patient continues to have significant output from his ileostomy. Patient is feeling better overall compared to how he felt on presentation. CBC today is relatively normal WBC count is 7.1 hemoglobin is 8.7, electrolytes are normal BUN is 93 creatinine is 3.17, improving over the last couple of days. Blood cultures remain negative. Again his sputum cultures are positive for MSSA and Klebsiella pneumonia. Reevaluated today on 10/07/2020, patient remains in the ICU, remains on trach collar at 28%, receiving antibiotics for his Klebsiella and MSSA pneumonia. Patient is only on Zosyn, and his Zyvox was discontinued since it was initially started by infectious disease for possible MRSA. Patient is requiring intermittently small doses of norepinephrine, clinically however the patient is much better compared to how he felt when he came in. He is in no distress, this morning he is off norepinephrine, but he didn't require norepinephrine last night, hence I will not transfer the patient out of the ICU yet. Chest x-ray continues to show by basilar atelectasis, possible left lower lobe consolidation which is chronic. Secretions from the tracheostomy are less and less. Renal profile is improving, creatinine is down to 2.9. CBC is normal. Electrolytes are normal. On 10/08/2020 the patient is being seen in follow-up in the intensive unit. His , comfortable and currently is on a trach collar with an FiO2 of 28%. The chest x-ray shows small bilateral pleural effusions and there is adequate expansion of both lungs and a orotracheal tube is in a good location. Note that he had MSSA and Klebsiella in his sputum and patient is currently on IV antibiotics and he is receiving IV Zosyn. Patient continues to have copious amount of secretions through his tracheostomy tube and the patient has a #[address] tracheostomy tube in place and he is requiring suctioning every 2 hours at least. He still has a lot of rhonchi He is currently off pressors. He is in normal sinus rhythm. He has also PEG tube for enteral feeding and nutritional support. PEG tube is in place and the patient is on Nepro at the rate of 75 mL an hour. He continues to have output through his ileostomy bag. The patient has significant amount of output through his ileostomy was in the order of every 12 hours. No abdominal distention. No signs of any respiratory distress. The creatinine is improving and is currently down to 2.5 and the patient's hemoglobin is at 8.4. No fever. No other issues overnight. Villafana cath is also in place. He is able to communicate. However he is still profoundly weak/in lower extremities. He is able to raise his arms against gravity. On 10/09/2020 patient seen in follow-up in the intensive care unit. Patient is awake and alert, is following commands, moving all 4 extremities, no signs of any respiratory distress, he is breathing comfortably, on 28% trach collar. His pulse ox is 98%. Still having some secretions from his tracheostomy, related he is on Zosyn for antibiotic coverage. Remains on nebulized bronchodilators, hemodynamically patient has been stable. No requiring any vasopressor support for last 48 hours. No acute events overnight. His sputum cultures were positive for MSSA and Klebsiella pneumonia. Today's labs have been reviewed, normal white count at 8.5, hemoglobin is 9.0, sodium is 137, potassium is 3.7, chloride is 110, B1 is 67, creatinine is 2.18. Patient has been nothing by mouth and has been receiving nutrition in the form of Nepro at 65 with a goal of 65. Patient has had significant diarrhea, liquid yellow output from his ileostomy. No complaints of chest pain. He is in sinus mechanism with a controlled rate. Chest x-ray shows basilar infiltrates and atelectasis with small effusions. On 10/10/2020 patient seen in follow-up in the intensive care unit. He is awake and alert, oriented 3, his calm and cooperative, he denies any acute distress, he still has significant amount of secretions that are being suctioned from the tracheostomy tube, he remains on 20% trach collar. He remains on antibiotics, his sputum cultures were positive for MSSA and Klebsiella pneumonia, he is on Zosyn, he has had no fever or chills. Lung sounds reveal minimal rhonchi, less congested and wheezy on today's exam compared a few days ago. Patient is tolerating tube feedings, he remains strict nothing by mouth, he is on Nepro at a rate of 65 ML per hour with a goal of 65 with 125 ML free water flushes every 3 hours. Abdomen is soft, ileostomy is still producing copious amount of liquid yellow diarrhea, which will be sent for C. diff. There has been a total of 2.5 L in stool output in the last 24 hours. Today's labs have been reviewed, white blood cell count is 8.9, hemoglobin is 8.9, CO2 is 18, sodium is 138, potassium is 3.9, chloride is 110, renal profile is improving despite the diarrhea, with BUN of 63, creatinine is 1.94. Patient is working with physical therapy and yesterday he apparently was up in the chair with assistance, tolerated activity well. On 10/11/2020 patient seen in follow-up in intensive care unit, she remains on 28% trach collar, the pulse ox of 97%, vital signs have been stable, his been afebrile, he did have a run of A. fib with RVR this morning and was restarted on amiodarone drip and was given 150 mg bolus of amiodarone. He is currently back in sinus mechanism with a controlled rate, receiving hydration with LR at 75 ML per hour, he continues to have large volume diarrhea out of his ileostomy, he had to 3.3 L in stool output in last 24 hours, C. diff was negative. tube feedings have been switched to vital AF currently running at 75 ML per hour, patient is getting free water flushes of 125 ML every 3 hours. Yesterday we placed him on lactated Ringer's at rate of 75 ML per hour, he is receiving or sodium bicarbonate tablets, his bicarbonate concentration at today's labs has improved and is up to 23. The renal profile slightly improved. Continues on Zosyn for MSSA and Klebsiella pneumonia in sputum cultures, blood cultures have been negative, patient has been afebrile, blood pressure stable, the patient continues on midodrine. Patient is awake and alert, following commands, responding appropriately, appears tired on today's exam. Denies any acute distress, his been working with physical therapy, he stood at the bedside, he is too weak to walk. Abdomen is soft, mid abdominal incision is covered with a dressing. On 10/12/2020 patient seen in follow-up in the intensive care unit. Patient is up in the recliner, breathing comfortably, she is on 20% trach collar, lung sounds are less congested and rhonchorous on today's exam. He is awake and oriented 3, denies any distress, he is currently on lactated Ringer's at a rate of 75 ML per hour, no recurrence of A. fib RVR overnight, his amiodarone is infusing at 0.5 mg/m and he will be transitioned to oral amiodarone today per cardiology, he remained in sinus rhythm. Vital signs are stable. He is on tube feedings of vital AF a rate of 90 with a goal of 90 with 125 ML free water flushes every 3 hours. His diarrhea output has decreased some, patient had 2 L in the liquid ostomy is stool output in the last 24 hours, he is on Lomotil when necessary. No abdominal pain. no nausea or vomiting no nausea or vomiting. The secretions out of the tracheostomy tube have decreased. Patient has been nothing by mouth, she would like to have a swallow evaluation to be evaluated for oral feedings. Today's chest x-ray has been reviewed showing left lower lobe infiltrate and/or pleural effusion, and improving aeration in the right lower lobe. Today's labs have been reviewed, showing white blood cell count of 12.4, hemoglobin of 9.3, electrolytes within normal limits, renal profile shows slight improvement in creatinine, down to 1.6 today. On 10/31/2020 patient seen in follow-up in the intensive care unit, yesterday patient underwent reversal of ileostomy, lysis of adhesions, small bowel resection, repair of incisional hernia partial omentectomy and placement of a wound VAC. This morning patient is back on 20% trach collar, he is breathing comfortably, his pulse oximetry 97%, he is awake and alert, oriented 3, he is able to verbally respond occluding his tracheostomy, denies any significant cough or congestion, has had no fever or chills, blood pressures are slightly low this morning, with systolic of 87/53, his IV fluid rate will be increased to 125, in addition patient had a run of A. fib with RVR last night and was started on amiodarone drip currently running at 0.5 mg/m per cardiology and is currently back to sinus rhythm with a controlled rate. He remains nothing by mouth, his abdominal incision has a wound VAC placed with black foam, and there is some moderate amount of thin serosanguineous output in the wound VAC canister. NAIN drain with minimal serosanguineous output, PEG tube is in place, and the tube feedings are on hold, no bowel sounds he is, and patient denies passing any gas yet. Lung sounds are clear, diminished at the bases, patient prefers to lie flat in bed related to his coccygeal sacral wounds and pain from that. Wound treatments and dressing changes are per ID service recommendations. Villafana catheter is in place patient is producing urine output in the order of 24-30 ML per hour. Today's labs have been reviewed, showing white blood cell count of 19.6, hemoglobin 10.5, sodium is 133, CO2 was 20, BUN was 50, creatinine is 1.3, potassium is 4.8. Patient is on Zosyn for empiric antibiotic coverage. Objective - Vital Signs Vital signs: Vital Signs Temp 97.9 F 10/31/20 08:00 Pulse 82 10/31/20 09:00 Resp 24 10/31/20 09:00 BP 87/53 10/31/20 09:00 Pulse Ox 97 10/31/20 09:00 Intake & Output 10/30/20 10/31/20 10/31/20 18:59 06:59 18:59 Intake Total 1500 1345 1255 Output Total 2009 399 120 Balance -826 039 3485 Weight 80 kg 75.8 kg Intake: IV 1500 1315 1225 Dextrose 5% in Water 100 100 ml @ 618 mls/hr IV .Q10M ONE with Amiodarone 150 mg Rx#:[id number] Lactated Ringers 1,000 ml 915 1225 @ 125 mls/hr IV .Q8H ONE Rx#:[id number] Magnesium Sulfate-D5w Pmx 300 1 gm In Dextrose/Water 1 100ml.bag @ 100 mls/hr IVPB Q1H [facility] Rx#: [id number] Other 30 30 Output: Drainage 125 Abdomen 125 Urine 910 274 120 Stool 1000 Estimated Blood Loss 100 Other: Voiding Method Indwelling Catheter - Exam GENERAL EXAM: Alert, very pleasant, 80-year-old white male on the 28% trach collar on 97%, comfortable in no apparent distress. HEAD: Normocephalic/atraumatic. EYES: Normal reaction of pupils, equal size. Conjunctiva pink, sclera white. NOSE: Clear with pink turbinates. THROAT: No erythema or exudates. NECK: No masses, no JVD, no thyroid enlargement, no adenopathy. Midline tracheostomy in place, CHEST: No chest wall deformity. Symmetrical expansion. LUNGS: Equal air entry with no crackles, wheeze, rhonchi or dullness. CVS: Regular rate and rhythm, normal S1 and S2, no gallops, no murmurs, no rubs ABDOMEN: Soft, nontender. No hepatosplenomegaly, normal bowel sounds, no guarding or rigidity. Midabdominal incision has a wound VAC with black foam in his abdominal incision, with a moderate amount of thin serosanguineous output in the canister, 1 NAIN drain on the right, PEG tube is on the left upper quadrant EXTREMITIES: No clubbing, no edema, no cyanosis, 2+ pulses and upper and lower extremities. MUSCULOSKELETAL: Muscle strength and tone normal. SPINE: No scoliosis or deformity SKIN: No rashes, he has a stage III sacral decubitus on his sacrum, and left heel wound CENTRAL NERVOUS SYSTEM: Alert and oriented -3. No focal deficits, tone is normal in all 4 extremities. PSYCHIATRIC: Alert and oriented -3. Appropriate affect. Intact judgment and insight. - Labs CBC & Chem 7: 10/31/20 00:42 10/31/20 00:42 Labs: Abnormal Lab Results - Last 24 Hours (Table) 10/30/20 10/30/20 10/30/20 Range/Units 11:56 15:28 20:25 WBC (3.8-10.6) k/uL RBC (4.30-5.90) m/uL Hgb (13.0-17.5) gm/dL Hct (39.0-53.0) % RDW (11.5-15.5) % Neutrophils # (1.3-7.7) k/uL Lymphocytes # (1.0-4.8) k/uL Sodium (137-145) mmol/L Carbon Dioxide (22-30) mmol/L BUN (9-20) mg/dL Creatinine (0.66-1.25) mg/dL Glucose (74-99) mg/dL POC Glucose (mg/dL) 138 H 124 H 178 H (75-99) mg/dL Magnesium (1.6-2.3) mg/dL 10/31/20 10/31/20 10/31/20 Range/Units 00:07 00:42 00:42 WBC 19.6 H (3.8-10.6) k/uL RBC 3.49 L (4.30-5.90) m/uL Hgb 10.5 L (13.0-17.5) gm/dL Hct 32.7 L (39.0-53.0) % RDW 18.4 H (11.5-15.5) % Neutrophils # 18.1 H (1.3-7.7) k/uL Lymphocytes # 0.4 L (1.0-4.8) k/uL Sodium 133 L (137-145) mmol/L Carbon Dioxide 20 L (22-30) mmol/L BUN 50 H (9-20) mg/dL Creatinine 1.37 H (0.66-1.25) mg/dL Glucose 158 H (74-99) mg/dL POC Glucose (mg/dL) 158 H (75-99) mg/dL Magnesium (1.6-2.3) mg/dL 10/31/20 10/31/20 Range/Units 00:42 05:48 WBC (3.8-10.6) k/uL RBC (4.30-5.90) m/uL Hgb (13.0-17.5) gm/dL Hct (39.0-53.0) % RDW (11.5-15.5) % Neutrophils # (1.3-7.7) k/uL Lymphocytes # (1.0-4.8) k/uL Sodium (137-145) mmol/L Carbon Dioxide (22-30) mmol/L BUN (9-20) mg/dL Creatinine (0.66-1.25) mg/dL Glucose (74-99) mg/dL POC Glucose (mg/dL) 177 H (75-99) mg/dL Magnesium 1.2 L (1.6-2.3) mg/dL Assessment and Plan Plan: Assessment: #1. High output ileostomy, status post reversal of ileostomy, lysis of adhesions, repair of incisional hernia repair, partial omentectomy, and wound VAC placement, postoperative day #1, surgery was on 10/30/2020 #2. Bilateral lower lobe pneumonia with sepsis related to MSSA and Klebsiella pneumonia #3. Acute on chronic hypoxic rest or a failure secondary to pneumonia and COPD, patient is on 28% trach collar for history of prolonged mechanical ventilator support after cardiac surgery #4. Sepsis secondary to pneumonia, improving #5. Acute on chronic kidney injury secondary to sepsis, ATN, improved #6. Triple-vessel coronary artery disease on 07/18/2020 with multiple postop erative complications and placement of tracheostomy and PEG tube [facility] where she was weaned off the ventilator support #7. Stage III equal decubitus ulcer and stage II on his left heel #8. Benign essential hypertension #9. Type 2 diabetes mellitus #10. History of bowel resection and ileostomy on 08/02/2020 #11. Generalized weakness and general medical debility #12. Anemia of chronic disease #13. Episode of A. fib with RVR on 10/30/2020, started on amiodarone drip, and currently back to sinus rhythm Plan: Patient is back on trach collar following his surgery, we will give the patient additional fluids, with 1 L of lactated Ringer's, continue maintenance fluids lactated Ringer's at a rate of 125 ML per hour, surgery was to keep the patient nothing by mouth, and no enteral feedings yet. Hemodynamically stable although did have A. fib RVR last night, currently back in sinus rhythm, cardiology is following. No fever or chills, patient is covered with empiric antibiotics, today's labs have been noted, right incentive spirometer, maintain aspiration precautions, continue breathing treatments. We'll continue to closely follow in the intensive care unit. I performed a history & physical examination of the patient and discussed their management with my nurse practitioner, Cheli Kendrick. I reviewed the nurse practitioner's note and agree with the documented findings and plan of care. Lung sounds are positive for diminished breath sounds The findings and the impression was discussed with the patient. I attest to the documentation by the nurse practitioner. Time with Patient: Greater than 30
--- NOTE | 2020-10-31 10:29 | P.PN ---
Subjective Patient is seen in follow for acute kidney injury. Renal function stable. Has been voiding. Currently has a Villafana catheter. Denies chest pain or shortness of breath. Underwent reversal of ileostomy on October 30. 2. A currently held. He is receiving IV fluids. Also wanted A. fib with RVR and is currently maintained on amiodarone drip. Vital signs are stable. General: The patient appeared well nourished and normally developed. HEENT: Tracheostomy noted. LUNGS: Breath sounds decreased. HEART: Irregular rate and rhythm. ABDOMEN: Soft, no distention noted. EXTREMITITES: No edema. Objective - Vital Signs Vital signs: Vital Signs Temp 97.9 F 10/31/20 08:00 Pulse 82 10/31/20 09:00 Resp 24 10/31/20 09:00 BP 87/53 10/31/20 09:00 Pulse Ox 97 10/31/20 09:00 Intake & Output 10/30/20 10/31/20 10/31/20 18:59 06:59 18:59 Intake Total 1500 1345 1255 Output Total 2009 399 120 Balance -588 492 5076 Weight 80 kg 75.8 kg Intake: IV 1500 1315 1225 Dextrose 5% in Water 100 100 ml @ 618 mls/hr IV .Q10M ONE with Amiodarone 150 mg Rx#:[id number] Lactated Ringers 1,000 ml 915 1225 @ 125 mls/hr IV .Q8H ONE Rx#:[id number] Magnesium Sulfate-D5w Pmx 300 1 gm In Dextrose/Water 1 100ml.bag @ 100 mls/hr IVPB Q1H [facility] Rx#: [id number] Other 30 30 Output: Drainage 125 Abdomen 125 Urine 910 274 120 Stool 1000 Estimated Blood Loss 100 Other: Voiding Method Indwelling Catheter Indwelling Catheter # Voids 1 - Labs CBC & Chem 7: 10/31/20 00:42 10/31/20 00:42 Labs: Abnormal Lab Results - Last 24 Hours (Table) 10/30/20 10/30/20 10/30/20 Range/Units 11:56 15:28 20:25 WBC (3.8-10.6) k/uL RBC (4.30-5.90) m/uL Hgb (13.0-17.5) gm/dL Hct (39.0-53.0) % RDW (11.5-15.5) % Neutrophils # (1.3-7.7) k/uL Lymphocytes # (1.0-4.8) k/uL Sodium (137-145) mmol/L Carbon Dioxide (22-30) mmol/L BUN (9-20) mg/dL Creatinine (0.66-1.25) mg/dL Glucose (74-99) mg/dL POC Glucose (mg/dL) 138 H 124 H 178 H (75-99) mg/dL Magnesium (1.6-2.3) mg/dL 10/31/20 10/31/20 10/31/20 Range/Units 00:07 00:42 00:42 WBC 19.6 H (3.8-10.6) k/uL RBC 3.49 L (4.30-5.90) m/uL Hgb 10.5 L (13.0-17.5) gm/dL Hct 32.7 L (39.0-53.0) % RDW 18.4 H (11.5-15.5) % Neutrophils # 18.1 H (1.3-7.7) k/uL Lymphocytes # 0.4 L (1.0-4.8) k/uL Sodium 133 L (137-145) mmol/L Carbon Dioxide 20 L (22-30) mmol/L BUN 50 H (9-20) mg/dL Creatinine 1.37 H (0.66-1.25) mg/dL Glucose 158 H (74-99) mg/dL POC Glucose (mg/dL) 158 H (75-99) mg/dL Magnesium (1.6-2.3) mg/dL 10/31/20 10/31/20 Range/Units 00:42 05:48 WBC (3.8-10.6) k/uL RBC (4.30-5.90) m/uL Hgb (13.0-17.5) gm/dL Hct (39.0-53.0) % RDW (11.5-15.5) % Neutrophils # (1.3-7.7) k/uL Lymphocytes # (1.0-4.8) k/uL Sodium (137-145) mmol/L Carbon Dioxide (22-30) mmol/L BUN (9-20) mg/dL Creatinine (0.66-1.25) mg/dL Glucose (74-99) mg/dL POC Glucose (mg/dL) 177 H (75-99) mg/dL Magnesium 1.2 L (1.6-2.3) mg/dL Assessment and Plan Plan: Assessment: 1. Acute kidney injury secondary to ATN secondary to hypotension and hemodynamic instability. Renal function improved from admission. Creatinine stable at 1.37 today. No hydronephrosis noted on kidney ultrasound. 2. Chronic kidney disease stage III with baseline creatinine 1.2-1.5 secondary to nephrosclerosis. 3. A. fib with RVR. Maintained on amiodarone and metoprolol. 4. Hyponatremia from acute kidney injury and IV fluids. 5. Failed swallow eval. 6. Diabetes mellitus. 7. Anemia of chronic kidney disease. Maintained on Aranesp. Status post IV iron and blood transfusion this admission. No active bleeding. 8. 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 Underwent reversal of ileostomy with lysis of conditions on October 30. 9. Sepsis secondary to pneumonia. 10. Hypomagnesemia from GI losses. Replaced. Plan: Decrease rate of IV fluids to 75 mL an hour. Continue to monitor renal function and urine output. Avoid nephrotoxins. Tube feeds to be resumed per surgery.
[2020-10-31 11:15] LABS: Glucose,Whole Blood 120 mg/dL (75-99)
--- NOTE | 2020-10-31 11:35 | P.PN ---
Subjective Progress Note Date: 10/31/20 CHIEF COMPLAINT: Respiratory distress HISTORY OF PRESENT ILLNESS: Patient is in the ICU. He is postop day #1 status post reversal of ileostomy, lysis of adhesions, small bowel resection, repair of incisional hernia, partial omentectomy and placement of wound VAC. Patient lying in bed comfortably. Reports his pain is controlled. He is receiving IV fluid bolus. He's trach collaring. Patient has been hypotensive. Patient did go into atrial fibrillation with rapid ventricular response and his been on IV amiodarone. WBC is 19.6 Hgb 10.5 magnesium 1.2 and being replaced. Creatinine 1.37 PHYSICAL EXAM: VITAL SIGNS: Reviewed. GENERAL: Well-developed in no acute distress. HEENT: No sclera icterus. Extraocular movements grossly intact. Moist buccal mucosa. Head is atraumatic, normocephalic. ABDOMEN: Soft. Nondistended. Wound VAC in place along the incision site. Area is clean dry and intact NEUROLOGIC: Alert and oriented. Cranial nerves II through XII grossly intact. ASSESSMENT: 1. High ileostomy output, incisional hernia and extensive adhesions. Patient is status post reversal of ileostomy, lysis of adhesions, small bowel resection, repair of incisional hernia, partial omentectomy and wound VAC placement 2. Abdominal wound at surgical incision site. 3. History of ischemic small bowel with evidence of pneumatosis status post small bowel resection on 07/24/2020. 4. History of intraperitoneal hemorrhage and small bowel ischemia status post exploratory laparotomy, washout of peritoneal cavity and ileostomy with small bowel resection on 08/02/2020 5. 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 Acute hypoxic respiratory failure secondary to pneumonia 7. Sepsis secondary to pneumonia 8. Acute kidney injury 9. chronic Anemia: With known chronic kidney disease and iron deficiency. He did require blood transfusion and IV Iron during this admission 10. Chronic malnutrition secondary to high ileostomy output 11. Unstageable sacral pressure ulcer PLAN: -Patient being given IV fluid bolus -Continue IV fluids -Oral morphine added to slow stool production -Continue supportive care -Continue ICU management -Continue antibiotics per ID Physician Corporate Operations Compliance Manager note has been reviewed by physician. Signing provider agrees with the documented findings, assessment, and plan of care. Objective - Vital Signs Vital signs: Vital Signs Temp 97.9 F 10/31/20 08:00 Pulse 74 10/31/20 10:00 Resp 21 10/31/20 10:00 BP 96/58 10/31/20 10:00 Pulse Ox 100 10/31/20 10:00 Intake & Output 10/30/20 10/31/20 10/31/20 18:59 06:59 18:59 Intake Total 1500 1345 1255 Output Total 2009 399 120 Balance -393 634 1307 Weight 80 kg 75.8 kg Intake: IV 1500 1315 1225 Dextrose 5% in Water 100 100 ml @ 618 mls/hr IV .Q10M ONE with Amiodarone 150 mg Rx#:[id number] Lactated Ringers 1,000 ml 915 1225 @ 125 mls/hr IV .Q8H ONE Rx#:[id number] Magnesium Sulfate-D5w Pmx 300 1 gm In Dextrose/Water 1 100ml.bag @ 100 mls/hr IVPB Q1H WADE Rx#: [id number] Other 30 30 Output: Drainage 125 Abdomen 125 Urine 910 274 120 Stool 1000 Estimated Blood Loss 100 Other: Voiding Method Indwelling Catheter Indwelling Catheter # Voids 1 - Labs CBC & Chem 7: 10/31/20 00:42 10/31/20 00:42 Labs: Abnormal Lab Results - Last 24 Hours (Table) 10/30/20 10/30/20 10/30/20 Range/Units 11:56 15:28 20:25 WBC (3.8-10.6) k/uL RBC (4.30-5.90) m/uL Hgb (13.0-17.5) gm/dL Hct (39.0-53.0) % RDW (11.5-15.5) % Neutrophils # (1.3-7.7) k/uL Lymphocytes # (1.0-4.8) k/uL Sodium (137-145) mmol/L Carbon Dioxide (22-30) mmol/L BUN (9-20) mg/dL Creatinine (0.66-1.25) mg/dL Glucose (74-99) mg/dL POC Glucose (mg/dL) 138 H 124 H 178 H (75-99) mg/dL Magnesium (1.6-2.3) mg/dL 10/31/20 10/31/20 10/31/20 Range/Units 00:07 00:42 00:42 WBC 19.6 H (3.8-10.6) k/uL RBC 3.49 L (4.30-5.90) m/uL Hgb 10.5 L (13.0-17.5) gm/dL Hct 32.7 L (39.0-53.0) % RDW 18.4 H (11.5-15.5) % Neutrophils # 18.1 H (1.3-7.7) k/uL Lymphocytes # 0.4 L (1.0-4.8) k/uL Sodium 133 L (137-145) mmol/L Carbon Dioxide 20 L (22-30) mmol/L BUN 50 H (9-20) mg/dL Creatinine 1.37 H (0.66-1.25) mg/dL Glucose 158 H (74-99) mg/dL POC Glucose (mg/dL) 158 H (75-99) mg/dL Magnesium (1.6-2.3) mg/dL 10/31/20 10/31/20 10/31/20 Range/Units 00:42 05:48 11:13 WBC (3.8-10.6) k/uL RBC (4.30-5.90) m/uL Hgb (13.0-17.5) gm/dL Hct (39.0-53.0) % RDW (11.5-15.5) % Neutrophils # (1.3-7.7) k/uL Lymphocytes # (1.0-4.8) k/uL Sodium (137-145) mmol/L Carbon Dioxide (22-30) mmol/L BUN (9-20) mg/dL Creatinine (0.66-1.25) mg/dL Glucose (74-99) mg/dL POC Glucose (mg/dL) 177 H 120 H (75-99) mg/dL Magnesium 1.2 L (1.6-2.3) mg/dL
[2020-10-31] MEDS: DARBEPOETIN ALFA 40 MCG/0.4 ML SYRINGE SQ SCH (12:52)
[2020-10-31] MEDS ORDERED: LACTATED RINGERS 1,000 ML IV ONE (13:00)
[2020-10-31] MEDS: PIPERACILLIN-TAZOBACTAM 3.375 GM in SODIUM CHLORIDE 0.9% 100 ML IVPB SCH (15:33)
[2020-10-31 18:08] LABS: Glucose,Whole Blood 150 mg/dL (75-99)
[2020-10-31] MEDS ORDERED: SODIUM CHLORIDE 0.9% 1,000 ML IV ONE ×2 (18:25→22:14)
[2020-10-31] MEDS: ATORVASTATIN 40 MG TAB PEG/G-TUBE SCH (20:17)
[2020-10-31] MEDS: AMIODARONE 200 MG TAB PO SCH (20:17)
[2020-10-31] MEDS: FAMOTIDINE 20 MG TAB PO SCH (20:17)
[2020-10-31] MEDS: DRY MOUTH SPRAY 44.3 SPRAY/44.3 ML SPRAY MUCOUS MEM PRN (20:21)
[2020-10-31] MEDS: QUEtiapine 25 MG TAB PO SCH (21:10)
--- NOTE | 2020-10-31 22:24 | P.PN ---
Progress Note - Text Progress Note Date: 10/31/20 Interval history: This is a pleasant 80 years old male with past medical history of coronary art fuad disease, COPD, diabetes mellitus, hyperlipidemia, hypertension, hypothyroidism, coronary artery disease status post cardiac cath and stent placement. He recently underwent double coronary artery bypass grafting for his triple-vessel coronary artery disease. He was in the hospital from 07/18/20- 08/25/2020 pt has tracheostomhy and PEG tube , Information were obtained with the help of at bedside, he presents with confusion, and a lot of secretion Why he states that [facility] and 5 days and then he was discharged a few days ago to group home at [facility] on Friday, however over the weekend he has more congestion, he has weak cough and needed frequent suctioning, patient was able to talk weekly his little confused but he can't communicate through gesture, he denies pain but he is tachypneic He has tracheostomy, PEG tube and try to colostomy. Admitted with-hypotension secondary to severe sepsis secondary to pneumonia, aspiration pneumonia, acute hypoxic respiratory failure, acute kidney injury secondary to ATN, elevated sodium, increased lactic acid, elevated troponin felt to be from tachycardia. Recent history of intraperitoneal hemorrhage status post laboratory with washout and ileostomy on 08/02/2020. Tracheostomy. C. diff ruled out. Recurrent A. fib. She was able to talk after covering his tracheostomy. Patient started on full liquids. Liquid stools persist. Discussed with Dr. Galvan and dinner Dr. Dempsey. Given that patient has a significant stool output. I highly doubt patient will get better of his discharge. We all agreed that patient should proceed with surgery as soon as possible. Was discussed with the patient at length. He agrees. October 30- patient underwent reversal of ileostomy [lysis of adhesions, small bowel resection, repair of incisional hernia repair, partial omentectomy]. Wound VAC was placed Today-no state patient went into atrial fibrillation with a rapid ventricular rate.: Regular sinus rhythm earlier today. Remains nothing by mouth. Decreased urine output. Given fluid boluses. Trach shield in place. IV a miodarone. Review of systems: Was done for constitutional, cardiovascular, GI, pulmonary. relevant finding as above Active Medications Acetaminophen (Acetaminophen Tab 325 Mg Tab) 650 mg PO Q6HR PRN PRN Reason: Fever and/ or Pain Last Admin: 10/29/20 21:05 Dose: 650 mg Documented by: Hydrocodone Bitart/Acetaminophen (Hydrocodone/Apap 5-325mg 1 Each Tab) 1 each PO Q6HR PRN PRN Reason: Pain Last Admin: 10/31/20 08:37 Dose: 1 each Documented by: Albuterol/Ipratropium (Ipratropium-Albuterol 3 Ml Neb) 3 ml INHALATION RT-QID [facility] Last Admin: 10/31/20 19:45 Dose: 3 ml Documented by: Albuterol/Ipratropium (Ipratropium-Albuterol 3 Ml Neb) 3 ml INHALATION RT-Q2H PRN PRN Reason: Shortness Of Breath Or Wheezing Last Admin: 10/03/20 21:27 Dose: 3 ml Documented by: Amiodarone HCl (Amiodarone 200 Mg Tab) 400 mg PO BID [facility] Last Admin: 10/31/20 20:17 Dose: 400 mg Documented by: Aspirin (Aspirin 81 Mg) 81 mg PO DAILY [facility] Last Admin: 10/31/20 08:45 Dose: 81 mg Documented by: Atorvastatin Calcium (Atorvastatin 40 Mg Tab) 40 mg PEG/G-TUBE HS@2000 [facility] Last Admin: 10/31/20 20:17 Dose: 40 mg Documented by: Budesonide (Budesonide 1 Mg/2 Ml Nebu) 1 mg INHALATION RT-BID [facility] Last Admin: 10/31/20 19:45 Dose: 1 mg Documented by: Cholestyramine Resin (Cholestyramine (With Sugar) 4 Gm Packet) 4 gm PO QID [facility] Last Admin: 10/31/20 21:13 Dose: Not Given Documented by: Darbepoetin Alex (Darbepoetin Alex 40 Mcg/0.4 Ml Syringe) 40 mcg SQ Q7D [facility] Last Admin: 10/31/20 12:52 Dose: 40 mcg Documented by: Diphenoxylate HCl/Atropine (Diphenox-Atrop 2.5-0.025 Mg 1 Each Tab) 1 each PO Q6HR [facility] Last Admin: 10/31/20 15:24 Dose: Not Given Documented by: Famotidine (Famotidine 20 Mg Tab) 20 mg PO HS [facility] Last Admin: 10/31/20 20:17 Dose: 20 mg Documented by: Hydromorphone HCl (Hydromorphone 1 Mg/Ml 1 Ml Syringe) 1 mg IVP Q3HR PRN PRN Reason: Pain Last Admin: 10/31/20 14:42 Dose: 1 mg Documented by: Amiodarone HCl 450 mg/ (Dextrose/Water) 250 mls @ 16.667 mls/hr IV .Q15H [facility]; Protocol Stop: 11/01/20 00:59 Last Admin: 10/31/20 21:34 Dose: Not Given Documented by: Lactated Ringer's (Lactated Ringers) 1,000 mls @ 125 mls/hr IV .Q8H [facility] Last Admin: 10/31/20 15:33 Dose: 125 mls/hr Documented by: Piperacillin Sod/Tazobactam (Sod 3.375 gm/ Sodium Chloride) 100 mls @ 25 mls/hr IVPB Q8HR [facility] Last Admin: 10/31/20 15:33 Dose: 25 mls/hr Documented by: Sodium Chloride (Saline 0.9%) 1,000 mls @ 999 mls/hr IV .Q1H1M ONE Stop: 10/31/20 23:14 Insulin Aspart (Insulin Aspart (Novolog) 100 Unit/Ml Vial) 0 unit SQ Q6H [facility]; Protocol Last Admin: 10/31/20 18:14 Dose: 1 unit Documented by: Levothyroxine Sodium (Levothyroxine 50 Mcg Tab) 50 mcg PEG/G-TUBE DAILY@0600 [facility] Last Admin: 10/31/20 06:10 Dose: Not Given Documented by: Lidocaine (Lidocaine 5% Patch) 1 patch TOPICAL DAILY [facility] Last Admin: 10/31/20 08:33 Dose: 1 patch Documented by: Melatonin (Melatonin 3 Mg Tablet) 3 mg PO HS PRN PRN Reason: Insomnia Last Admin: 10/29/20 21:05 Dose: 3 mg Documented by: Methyl Salicylate (Methyl Salicylate/Menthol Cream 5 Oz) 1 applic TOPICAL Q6HR PRN PRN Reason: Pain Last Admin: 10/29/20 06:03 Dose: 1 applic Documented by: Metoprolol Tartrate (Metoprolol Tartrate 25 Mg Tab) 25 mg PO TID [facility] Last Admin: 10/31/20 21:10 Dose: 25 mg Documented by: Midodrine (Midodrine 5 Mg Tab) 10 mg PO Q8HR [facility] Last Admin: 10/31/20 15:33 Dose: 10 mg Documented by: Miscellaneous Information (Potassium Replacement Protocol 1 Each Misc) 1 each MISCELLANE DAILY PRN; Protocol PRN Reason: Per Protocol Miscellaneous Information (Magnesium Replacement Protocol 1 Each Misc) 1 each MISCELLANE DAILY PRN; Protocol PRN Reason: Per Protocol Morphine Sulfate (Morphine Oral Soln 10 Mg/5 Ml Cup) 5 mg PO Q4HR [facility] Last Admin: 10/31/20 20:16 Dose: 5 mg Documented by: Naloxone HCl (Naloxone 0.4 Mg/Ml 1 Ml Vial) 0.2 mg IV Q2M PRN PRN Reason: Opioid Reversal Octreotide Acetate (Octreotide 100 Mcg/Ml Inj) 100 mcg SQ Q8HR [facility] Last Admin: 10/31/20 15:35 Dose: 100 mcg Documented by: Ondansetron HCl (Ondansetron 4 Mg/2 Ml Vial) 4 mg IVP Q6HR PRN PRN Reason: Nausea And Vomiting Quetiapine Fumarate (Quetiapine 25 Mg Tab) 25 mg PO HS [facility] Last Admin: 10/31/20 21:10 Dose: 25 mg Documented by: Saliva Substitute (Dry Mouth [place] 44.3 [place]/44.3 Ml [place]) 1 spray MUCOUS MEM QID PRN PRN Reason: Dry Mouth Last Admin: 10/31/20 20:21 Dose: 1 spray Documented by: Sodium Chloride (Sodium Chloride Tab 1 Gm Tab) 1 gm PO TID [facility] Last Admin: 10/31/20 21:10 Dose: 1 gm Documented by: Tamsulosin HCl (Tamsulosin 0.4 Mg Cap.Er.24h) 0.4 mg PO -BRKFST [facility] Last Admin: 10/31/20 08:53 Dose: Not Given Documented by: On examination: VITAL SIGNS: 97.9, 72, 18, 94/72, 96% on trach collar GENERAL APPEARANCE: Laying in bed, tired awake, HEENT:Trach collar with shield EYES: Pupils equal. Conjunctiva normal. NECK: JVD not raised. Mass not palpable. RESPIRATORY: Respiratory effort increased Lungs decreased breath sounds CARDIOVASCULAR: First and second sounds normal. No edema. ABDOMEN: PEG tube.. Wound VAC. PSYCHIATRY: Alert and oriented x3. Mood and affect tired INVESTIGATIONS, reviewed in the clinical context: October 31: WBC 619.6 hemoglobin 10.5 potassium 4.8 creatinine 1.37 October 30: WBC 7.7 hemoglobin 9.5 potassium 3.8 creatinine 1.4 October 28: WBC 8.4 hemoglobin 9.6 potassium 4.1 creatinine 1.51 October 27: WBC 7.2 hemoglobin 9 platelets 233 potassium 3.7 creatinine 1.69 October 20: White count 13.2 hemoglobin 9.4 platelets 206 potassium 4 creatinine 1.48 White count 7.1 hemoglobin 8.7 platelets 256 potassium 3.8 bicarbonate 20 bun 33 creatinine 3.17 Sputum culture-positive for Staphylococcus aureus MSSA, Klebsiella Pneumoniae Previous labs: White count 16.6 hemoglobin 9.9 platelets 584 bun 100 creatinine 3.18 Coronavirus PCR-not detected Renal ultrasound-normal bilateral renal ultrasound Assessment and plan: -Hypotensive shock -better. remains off norepinephrine IV , on midodrine- -Abdominal wound at surgical incision site, followed by general surgery with local dressing -History of ischemic small bowel with evidence of pneumatosis status post small bowel resection on 07/24/2020 -Ileostomy for intraperitoneal hemorrhage and small bowel ischemia status post exploratory laboratory or short of periportal cavity on 08/02/2020. Ileostomy reversal on October 30. Now with a wound VAC -Coronary artery disease with bypass in July 2020, and Lopressor. Aspirin -Acute hypoxic respiratory failure secondary to pneumonia, continue with oxygen supplementation, currently with the trach collar, 28% -Anemia secondary to chronic kidney disease , follow H&H -Acute kidney injury secondary to ATN secondary to hypotension and hemodynamic instability - Creatinine 1.48 -Chronic kidney disease stage III the baseline creatinine of 1.2-1.5 secondary to nephrosclerosis -Paroxysmal atrial fibrillation with rapid ventricular rate on amiodarone by mouth, Lopressor, converted to sinus rhythm. Patient has been in and out of rapid A. fib. -Hypernatremia secondary to decreased oral water intake. Receiving free water- improved -Possible aspiration pneumonia, sputum positive for MSSA and Klebsiella pneumoniae., Causing sepsis IV Zosyn-changed to IV cefepime-completed course -Silent aspiration detected by barium study. 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 Ileostomy was reversed on October 30 -DO NOT RESUSCITATE Follow closely.
[2020-11-01] MEDS: MORPHINE ORAL SOLN 10 MG/5 ML CUP PO SCH ×6 (00:09→21:18)
[2020-11-01] MEDS: MIDODRINE 5 MG TAB PO SCH ×4 (00:09→21:20)
[2020-11-01 00:18] LABS: Glucose,Whole Blood 108 mg/dL (75-99)
[2020-11-01] MEDS: INSULIN ASPART (NovoLOG) 100 UNIT/ML VIAL SQ SCH ×4 (00:21→18:50)
[2020-11-01] MEDS: OCTREOTIDE 100 MCG/ML INJ SQ SCH ×3 (00:32→16:41)
[2020-11-01] MEDS: PIPERACILLIN-TAZOBACTAM 3.375 GM in SODIUM CHLORIDE 0.9% 100 ML IVPB SCH ×3 (00:34→16:42)
[2020-11-01] MEDS: HYDROmorphone 1 MG/ML 1 ML SYRINGE IVP PRN ×4 (01:00→21:19)
[2020-11-01] MEDS: NOREPINEPHRINE 4 MG in SODIUM CHLORIDE 0.9% 250 ML IV SCH (02:53)
[2020-11-01 04:16] LABS: Anisocytosis Slight; Basophils # (A) 0.1 k/uL (0-0.2); Basophils % (A) 1 %; Eosinophils # (A) 0.1 k/uL (0-0.7); Eosinophils % (A) 1 %; HCT 25.2 % (39.0-53.0); Hypochromasia Slight; Lymphocytes # (A) 0.4 k/uL (1.0-4.8); Lymphocytes % (A) 4 %; MCH 30.6 pg (25.0-35.0); MCHC 32.4 g/dL (31.0-37.0); MCV 94.5 fL (80.0-100.0); Macrocytosis Slight; Mean Platelet Volume 7.4; Monocytes # (A) 0.8 k/uL (0-1.0); Monocytes % (A) 8 %; Neutrophils # (A) 8.6 k/uL (1.3-7.7); Neutrophils % (A) 87 %; Platelet Count 310 k/uL (150-450); RBC 2.66 m/uL (4.30-5.90); RDW 18.5 % (11.5-15.5)
[2020-11-01 04:30] LABS: HGB 8.1 gm/dL (13.0-17.5)
[2020-11-01 04:33] LABS: Albumin 2.4 g/dL (3.5-5.0); Calcium 8.2 mg/dL (8.4-10.2); Magnesium 1.8 mg/dL (1.6-2.3); Potassium 4.9 mmol/L (3.5-5.1); Total Bilirubin 0.6 mg/dL (0.2-1.3); Total Protein 5.1 g/dL (6.3-8.2)
[2020-11-01] MEDS: DIPHENOX-ATROP 2.5-0.025 MG 1 EACH TAB PO SCH ×3 (05:53→16:37)
[2020-11-01 05:56] LABS: Glucose,Whole Blood 134 mg/dL (75-99)
[2020-11-01] MEDS: LEVOTHYROXINE 50 MCG TAB PEG/G-TUBE SCH (06:00)
[2020-11-01] MEDS ORDERED: ALBUMIN HUMAN 5% 250 ML in EMPTY BAG 1 BAG IVPB ONE (06:36)
[2020-11-01] MEDS: IPRATROPIUM-ALBUTEROL 3 ML NEB INHALATION SCH ×4 (07:55→20:28)
[2020-11-01] MEDS: BUDESONIDE 1 MG/2 ML NEBU INHALATION SCH ×2 (07:55→20:27)
[2020-11-01] MEDS: LACTATED RINGERS 1,000 ML IV SCH ×4 (09:34→16:41)
[2020-11-01] MEDS: TAMSULOSIN 0.4 MG CAP.ER.24H PO SCH (09:39)
[2020-11-01] MEDS: AMIODARONE 200 MG TAB PO SCH ×2 (09:39→21:20)
[2020-11-01] MEDS: ASPIRIN 81 MG PO SCH (09:40)
[2020-11-01] MEDS: SODIUM CHLORIDE TAB 1 GM TAB PO SCH ×3 (09:40→21:20)
[2020-11-01] MEDS: METOPROLOL TARTRATE 25 MG TAB PO SCH ×3 (09:40→21:20)
[2020-11-01] MEDS: CHOLESTYRAMINE (WITH SUGAR) 4 GM PACKET PO SCH ×4 (09:41→21:20)
[2020-11-01] MEDS: LIDOCAINE 5% PATCH TOPICAL SCH (09:44)
--- NOTE | 2020-11-01 10:10 | P.PN ---
Subjective Progress Note Date: 11/01/20 Principal diagnosis: Acute on chronic hypoxic respiratory failure secondary to left lower lobe pneumonia and sepsis This is a 80-year-old white male familiar to my service, in July 2020, patient underwent elective coronary artery bypass grafting. He had a very complicated postoperative course, patient required multiple abdominal surgeries, multiple intubations, extubations, and the intubations, patient was a failure to wean, and he had multiple abdominal surgeries during his stay. Patient underwent tracheostomy, PEG tube placement, and we were able to transfer the pa maty to an extended care facility. He was at the extended care facility until about a week ago, his tracheostomy was capped, and he was transferred to [facility] in [id number]. Patient has been noticing increased cough, increased shortness of breath, and significant purulent secretions from the tracheostomy tube when uncapped. O2 saturation was dipping down into the 50s and in the ER he had a saturation of 86% on 15 L high flow nasal cannula. Patient was also noted to have leukocytosis, hemoglobin was low, his troponin was slightly elevated, blood pressure was noted to be marginally low, patient was admitted initially to the cardiac floor, however supposedly he was noted to have blood pressure in the 70s systolic. Patient did receive multiple fluid boluses in the ER over 3 L were given, and we were notified about the patient on the floor having low blood pressure, I recommended transferred to the ICU planning to start the patient on norepinephrine. However over the last 12 hours in the ICU, his blood pressure has been stable patient did not require placement on any pressors. His beta blockers had been on hold because of low blood pressure, and he is maintained on amiodarone. His pro-calcitonin level was noted to be 2.60. And his chest x-ray showed left lower lobe atelectasis, suspect left lower lobe pneumonia. And he had small pleural effusions noted more so than right. Going back to his previous hospital admission, patient did have left lower lobe pneumonia and he did have left pleural effusion requiring thoracentesis once or twice. Cultures previously from the sputum were positive for Pseudomonas fluorescence/putida, sensitive to Zosyn and Levaquin and meropenem. Also sensitive to cefepime. Considering the patient's presentation with hypotension, shortness of breath, cough, abnormal chest x-ray, hypoxia, and considering his recent clinical history, we were asked to see him on consultation Patient was reevaluated today on 10/04/2020, patient remains in the ICU, he is on trach collar a 55%, patient went into atrial fibrillation with RVR yesterday, and he went on amiodarone at 1 mg/m, he also received 1 unit of packed RBCs for hemoglobin of 6.7, patient converted to sinus rhythm. Remains in sinus rhythm, patient is receiving tube feeds/Nepro at 65/65. He is also receiving free water. Chest x-ray is showing minimal improvement in the left lower lobe consolidation, clinically the patient is feeling better, he is empirically on antibiotics for healthcare acquired pneumonia/Zosyn. Previous sputum cultures were positive for Pseudomonas, hence his Zosyn was chosen as the drug of choice. CBC today showed WBC 7.2 hemoglobin 6.7, hence a unit of blood was given. Electrolytes showed low sodium but improving today is 148 from 150 to yesterday. BUN is 108 creatinine 3.4 to about the same as yesterday. Reevaluated today on 10/05/2020, patient remains in the ICU, remains on 55% trach collar. Off norepinephrine, IV fluids at KVO, tolerating enteral feeding via PEG tube, patient continues to have significant amount of tracheal secretions, he is now on Zosyn and vancomycin, as well as Zyvox. His cultures from the sputum are showing MSSA, hence we will discontinue vancomycin, keep him on Zosyn, and infectious disease to address his Zyvox. Patient may not even require Zyvox considering the culture is positive for MSSA. Chest x-ray is showing bilateral pleural effusions/small, renal functioning is slightly improved over the last 24 hours. Patient was switched to oral amiodarone, and he seems to be doing quite well, in sinus rhythm. Reevaluated today on 10/06/2020, patient remains in the ICU, remains on trach collar at 28%, sputum came back positive for Klebsiella and MSSA. Patient is on Zosyn and Zyvox. Remains on a small dose of norepinephrine at 0.01 mcg/kg/m, remains on enteral feeding/Nepro at 65 ML per hour, also receiving Questran. Patient continues to have significant output from his ileostomy. Patient is feeling better overall compared to how he felt on presentation. CBC today is relatively normal WBC count is 7.1 hemoglobin is 8.7, electrolytes are normal BUN is 93 creatinine is 3.17, improving over the last couple of days. Blood cultures remain negative. Again his sputum cultures are positive for MSSA and Klebsiella pneumonia. Reevaluated today on 10/07/2020, patient remains in the ICU, remains on trach collar at 28%, receiving antibiotics for his Klebsiella and MSSA pneumonia. Patient is only on Zosyn, and his Zyvox was discontinued since it was initially started by infectious disease for possible MRSA. Patient is requiring intermittently small doses of norepinephrine, clinically however the patient is much better compared to how he felt when he came in. He is in no distress, this morning he is off norepinephrine, but he didn't require norepinephrine last night, hence I will not transfer the patient out of the ICU yet. Chest x-ray continues to show by basilar atelectasis, possible left lower lobe consolidation which is chronic. Secretions from the tracheostomy are less and less. Renal profile is improving, creatinine is down to 2.9. CBC is normal. Electrolytes are normal. On 10/08/2020 the patient is being seen in follow-up in the intensive unit. His , comfortable and currently is on a trach collar with an FiO2 of 28%. The chest x-ray shows small bilateral pleural effusions and there is adequate expansion of both lungs and a orotracheal tube is in a good location. Note that he had MSSA and Klebsiella in his sputum and patient is currently on IV antibiotics and he is receiving IV Zosyn. Patient continues to have copious amount of secretions through his tracheostomy tube and the patient has a #[address] tracheostomy tube in place and he is requiring suctioning every 2 hours at least. He still has a lot of rhonchi He is currently off pressors. He is in normal sinus rhythm. He has also PEG tube for enteral feeding and nutritional support. PEG tube is in place and the patient is on Nepro at the rate of 75 mL an hour. He continues to have output through his ileostomy bag. The patient has significant amount of output through his ileostomy was in the order of every 12 hours. No abdominal distention. No signs of any respiratory distress. The creatinine is improving and is currently down to 2.5 and the patient's hemoglobin is at 8.4. No fever. No other issues overnight. Villafana cath is also in place. He is able to communicate. However he is still profoundly weak/in lower extremities. He is able to raise his arms against gravity. On 10/09/2020 patient seen in follow-up in the intensive care unit. Patient is awake and alert, is following commands, moving all 4 extremities, no signs of any respiratory distress, he is breathing comfortably, on 28% trach collar. His pulse ox is 98%. Still having some secretions from his tracheostomy, related he is on Zosyn for antibiotic coverage. Remains on nebulized bronchodilators, hemodynamically patient has been stable. No requiring any vasopressor support for last 48 hours. No acute events overnight. His sputum cultures were positive for MSSA and Klebsiella pneumonia. Today's labs have been reviewed, normal white count at 8.5, hemoglobin is 9.0, sodium is 137, potassium is 3.7, chloride is 110, B1 is 67, creatinine is 2.18. Patient has been nothing by mouth and has been receiving nutrition in the form of Nepro at 65 with a goal of 65. Patient has had significant diarrhea, liquid yellow output from his ileostomy. No complaints of chest pain. He is in sinus mechanism with a controlled rate. Chest x-ray shows basilar infiltrates and atelectasis with small effusions. On 10/10/2020 patient seen in follow-up in the intensive care unit. He is awake and alert, oriented 3, his calm and cooperative, he denies any acute distress, he still has significant amount of secretions that are being suctioned from the tracheostomy tube, he remains on 20% trach collar. He remains on antibiotics, his sputum cultures were positive for MSSA and Klebsiella pneumonia, he is on Zosyn, he has had no fever or chills. Lung sounds reveal minimal rhonchi, less congested and wheezy on today's exam compared a few days ago. Patient is tolerating tube feedings, he remains strict nothing by mouth, he is on Nepro at a rate of 65 ML per hour with a goal of 65 with 125 ML free water flushes every 3 hours. Abdomen is soft, ileostomy is still producing copious amount of liquid yellow diarrhea, which will be sent for C. diff. There has been a total of 2.5 L in stool output in the last 24 hours. Today's labs have been reviewed, white blood cell count is 8.9, hemoglobin is 8.9, CO2 is 18, sodium is 138, potassium is 3.9, chloride is 110, renal profile is improving despite the diarrhea, with BUN of 63, creatinine is 1.94. Patient is working with physical therapy and yesterday he apparently was up in the chair with assistance, tolerated activity well. On 10/11/2020 patient seen in follow-up in intensive care unit, she remains on 28% trach collar, the pulse ox of 97%, vital signs have been stable, his been afebrile, he did have a run of A. fib with RVR this morning and was restarted on amiodarone drip and was given 150 mg bolus of amiodarone. He is currently back in sinus mechanism with a controlled rate, receiving hydration with LR at 75 ML per hour, he continues to have large volume diarrhea out of his ileostomy, he had to 3.3 L in stool output in last 24 hours, C. diff was negative. tube feedings have been switched to vital AF currently running at 75 ML per hour, patient is getting free water flushes of 125 ML every 3 hours. Yesterday we placed him on lactated Ringer's at rate of 75 ML per hour, he is receiving or sodium bicarbonate tablets, his bicarbonate concentration at today's labs has improved and is up to 23. The renal profile slightly improved. Continues on Zosyn for MSSA and Klebsiella pneumonia in sputum cultures, blood cultures have been negative, patient has been afebrile, blood pressure stable, the patient continues on midodrine. Patient is awake and alert, following commands, responding appropriately, appears tired on today's exam. Denies any acute distress, his been working with physical therapy, he stood at the bedside, he is too weak to walk. Abdomen is soft, mid abdominal incision is covered with a dressing. On 10/12/2020 patient seen in follow-up in the intensive care unit. Patient is up in the recliner, breathing comfortably, she is on 20% trach collar, lung sounds are less congested and rhonchorous on today's exam. He is awake and oriented 3, denies any distress, he is currently on lactated Ringer's at a rate of 75 ML per hour, no recurrence of A. fib RVR overnight, his amiodarone is infusing at 0.5 mg/m and he will be transitioned to oral amiodarone today per cardiology, he remained in sinus rhythm. Vital signs are stable. He is on tube feedings of vital AF a rate of 90 with a goal of 90 with 125 ML free water flushes every 3 hours. His diarrhea output has decreased some, patient had 2 L in the liquid ostomy is stool output in the last 24 hours, he is on Lomotil when necessary. No abdominal pain. no nausea or vomiting no nausea or vomiting. The secretions out of the tracheostomy tube have decreased. Patient has been nothing by mouth, she would like to have a swallow evaluation to be evaluated for oral feedings. Today's chest x-ray has been reviewed showing left lower lobe infiltrate and/or pleural effusion, and improving aeration in the right lower lobe. Today's labs have been reviewed, showing white blood cell count of 12.4, hemoglobin of 9.3, electrolytes within normal limits, renal profile shows slight improvement in creatinine, down to 1.6 today. On 10/31/2020 patient seen in follow-up in the intensive care unit, yesterday patient underwent reversal of ileostomy, lysis of adhesions, small bowel resection, repair of incisional hernia partial omentectomy and placement of a wound VAC. This morning patient is back on 20% trach collar, he is breathing comfortably, his pulse oximetry 97%, he is awake and alert, oriented 3, he is able to verbally respond occluding his tracheostomy, denies any significant cough or congestion, has had no fever or chills, blood pressures are slightly low this morning, with systolic of 87/53, his IV fluid rate will be increased to 125, in addition patient had a run of A. fib with RVR last night and was started on amiodarone drip currently running at 0.5 mg/m per cardiology and is currently back to sinus rhythm with a controlled rate. He remains nothing by mouth, his abdominal incision has a wound VAC placed with black foam, and there is some moderate amount of thin serosanguineous output in the wound VAC canister. NAIN drain with minimal serosanguineous output, PEG tube is in place, and the tube feedings are on hold, no bowel sounds he is, and patient denies passing any gas yet. Lung sounds are clear, diminished at the bases, patient prefers to lie flat in bed related to his coccygeal sacral wounds and pain from that. Wound treatments and dressing changes are per ID service recommendations. Villafana catheter is in place patient is producing urine output in the order of 24-30 ML per hour. Today's labs have been reviewed, showing white blood cell count of 19.6, hemoglobin 10.5, sodium is 133, CO2 was 20, BUN was 50, creatinine is 1.3, potassium is 4.8. Patient is on Zosyn for empiric antibiotic coverage. On 11/01/2020 patient seen in follow-up in intensive care unit, he is awake, in no acute distress, breathing comfortably, he is currently on 40% trach collar, his pulse ox is 96%, no fever or chills, did have some low blood pressures overnight, was systolic in the 70s. Yesterday we gave the patient additional fluids. He has been nothing by mouth, history feedings have been on hold, he is postoperative day #2 status post reversal of ileostomy. Today's chest x-ray has been reviewed showing left greater than right pleural effusions and bibasilar atelectasis. Not significantly changed from previous chest x-ray. Today's labs have been reviewed, showing medically improved leukocytosis, with Elocon is within normal limits today, down to 10 from 19.6 on yesterday's labs, hemoglobin is 8.1, sodium is 132, the rest of the electrolytes are within normal limits, BUN is 47, creatinine is 1.69. Remains on antibiotics for MSSA and Klebsiella pneumonia in the sputum, follow up on sputum culture was just positive for Radha albicans, blood and urine cultures show no growth. She is in sinus mechanism, he has been transitioned to oral amiodarone 400 mg twice a day per cardiology, amiodarone drip has been discontinued, laxative Ringer's is currently infusing at 125 ML per hour, and Levaquin and is infusing at 0.02 mics per kilo per minute or 2.5 mics per minute, patient did receive another liter bolus this morning per surgical services. He is on octreotide and Lomotil. Has not had a bowel movement yet. Abdominal incisions clean dry and intact. Objective - Vital Signs Vital signs: Vital Signs Temp 98.2 F 11/01/20 04:00 Pulse 101 H 11/01/20 08:20 Resp 22 03/17/21 07:00 BP 98/55 11/01/20 07:00 Pulse Ox 95 11/01/20 07:55 Intake & Output 10/31/20 11/01/20 11/01/20 18:59 06:59 18:59 Intake Total 3220 4778.338 125 Output Total 340 299 20 Balance 2880 4479.338 105 Weight 80.3 kg Intake: IV 3100 4375 125 0.9 1250 Lactated Ringers 1,000 ml 3000 2125 125 @ 125 mls/hr IV .Q8H [facility] Rx#:[id number] Piperacillin-Tazobactam 3 100 .375 gm In Sodium Chloride 0.9% 100 ml @ 25 mls/hr IVPB Q8HR [facility] Rx# :[id number] Sodium Chloride 0.9% 1, 1000 000 ml @ 999 mls/hr IV . Q1H1M [facility] Rx#:[id number] Intake, IV Titration 223.338 Amount Amiodarone 450 mg In 223.338 Dextrose 5% in Water 250 ml @ 0.5 MG/MIN 16.667 mls/hr IV .Q15H [facility] Rx#: [id number] Tube Feeding 30 Other 90 180 Output: Drainage 50 Abdomen 50 Urine 290 299 20 Other: Voiding Method Indwelling Catheter Indwelling Catheter # Voids 1 - Exam GENERAL EXAM: Alert, very pleasant, 80-year-old white male on the 40% trach collar on 95%, comfortable in no apparent distress. HEAD: Normocephalic/atraumatic. EYES: Normal reaction of pupils, equal size. Conjunctiva pink, sclera white. NOSE: Clear with pink turbinates. THROAT: No erythema or exudates. NECK: No masses, no JVD, no thyroid enlargement, no adenopathy. Midline tracheostomy in place, CHEST: No chest wall deformity. Symmetrical expansion. LUNGS: Equal air entry with no crackles, wheeze, rhonchi or dullness. CVS: Regular rate and rhythm, normal S1 and S2, no gallops, no murmurs, no rubs ABDOMEN: Soft, nontender. No hepatosplenomegaly, normal bowel sounds, no guarding or rigidity. Midabdominal incision has a wound VAC with black foam in his abdominal incision, with a moderate amount of thin serosanguineous output in the canister, 1 NAIN drain on the right, PEG tube is on the left upper quadrant EXTREMITIES: No clubbing, no edema, no cyanosis, 2+ pulses and upper and lower extremities. MUSCULOSKELETAL: Muscle strength and tone normal. SPINE: No scoliosis or deformity SKIN: No rashes, he has a stage III sacral decubitus on his sacrum, and left heel wound CENTRAL NERVOUS SYSTEM: Alert and oriented -3. No focal deficits, tone is normal in all 4 extremities. PSYCHIATRIC: Alert and oriented -3. Appropriate affect. Intact judgment and insight. - Labs CBC & Chem 7: 11/01/20 03:26 11/01/20 03:26 Labs: Abnormal Lab Results - Last 24 Hours (Table) 10/31/20 10/31/20 11/01/20 Range/Units 11:13 18:06 00:17 RBC (4.30-5.90) m/uL Hgb (13.0-17.5) gm/dL Hct (39.0-53.0) % RDW (11.5-15.5) % Neutrophils # (1.3-7.7) k/uL Lymphocytes # (1.0-4.8) k/uL Sodium (137-145) mmol/L BUN (9-20) mg/dL Creatinine (0.66-1.25) mg/dL Glucose (74-99) mg/dL POC Glucose (mg/dL) 120 H 150 H 108 H (75-99) mg/dL Calcium (8.4-10.2) mg/dL Total Protein (6.3-8.2) g/dL Albumin (3.5-5.0) g/dL 11/01/20 11/01/20 11/01/20 Range/Units 03:26 03:26 05:54 RBC 2.66 L (4.30-5.90) m/uL Hgb 8.1 L D (13.0-17.5) gm/dL Hct 25.2 L (39.0-53.0) % RDW 18.5 H (11.5-15.5) % Neutrophils # 8.6 H (1.3-7.7) k/uL Lymphocytes # 0.4 L (1.0-4.8) k/uL Sodium 132 L (137-145) mmol/L BUN 47 H (9-20) mg/dL Creatinine 1.69 H (0.66-1.25) mg/dL Glucose 118 H (74-99) mg/dL POC Glucose (mg/dL) 134 H (75-99) mg/dL Calcium 8.2 L (8.4-10.2) mg/dL Total Protein 5.1 L (6.3-8.2) g/dL Albumin 2.4 L (3.5-5.0) g/dL Assessment and Plan Plan: Assessment: #1. High output ileostomy, status post reversal of ileostomy, lysis of adhesions, repair of incisional hernia repair, partial omentectomy, and wound VAC placement, postoperative day #2, surgery was on 10/30/2020 #2. Hypotension, related to intravascular volume depletion, currently requiring small amount of levofed, and patient is being fluid resuscitated #3. Bilateral lower lobe pneumonia with sepsis related to MSSA and Klebsiella pneumonia #4. Acute on chronic hypoxic rest or a failure secondary to pneumonia and COPD, patient is on 28% trach collar for history of prolonged mechanical ventilator support after cardiac surgery #5. Sepsis secondary to pneumonia, improving #6. Acute on chronic kidney injury secondary to sepsis, ATN, improved #7. Triple-vessel coronary artery disease on 07/18/2020 with multiple postoperative complications and placement of tracheostomy and PEG tube [facility] she was weaned off the ventilator support #8. Stage III equal decubitus ulcer and stage II on his left heel #9. Benign essential hypertension #10. Type 2 diabetes mellitus #11. History of bowel resection and ileostomy on 08/02/2020 #12. Generalized weakness and general medical debility #13. Anemia of chronic disease #14. Episode of A. fib with RVR on 10/30/2020, started on amiodarone drip, and currently back to sinus rhythm Plan: Agree with additional fluid boluses, continue maintenance IV fluids at 125, monitor urine output, and vasopressor requirement. Wean levofed. Continue with Zosyn, no fever or chills, leukocytosis is improving, diet initiation per surgery. Continue deep breathing and coughing, incentive spirometry use. Patient remains in sinus mechanism, his been transitioned to oral amiodarone. Today's chest x-ray has been reviewed, showing stable findings with small bilateral pleural effusions, and bibasilar atelectasis/infiltrates. No fever or chills. We'll continue to closely monitor in the intensive care unit. Wound care and antibiotics per wound care team and ID service. I performed a history & physical examination of the patient and discussed their management with my nurse practitioner, Cheli Kendrick. I reviewed the nurse practitioner's note and agree with the documented findings and plan of care. Lung sounds are positive for diminished breath sounds The findings and the impression was discussed with the patient. I attest to the documentation by the nurse practitioner. Time with Patient: Greater than 30
--- NOTE | 2020-11-01 10:16 | P.PN ---
Subjective Patient is seen in follow for acute kidney injury. Renal function a little worse. Creatinine 1.69 today. Patient received 4 L of fluid bolus yesterday and is receiving another 2 L today. She is also maintained on LR at 1 25 mL an hour for maintenance fluids. He is now on oral amiodarone. Urine output about 20 mL an hour. Also on low-dose Levophed. Vital signs: Tachycardic. Blood pressure also on the lower side. General: The patient appeared well nourished and normally developed. HEENT: Tracheostomy noted. LUNGS: Breath sounds decreased. HEART: Tachycardic. ABDOMEN: Soft, no distention noted. EXTREMITITES: No edema. Objective - Vital Signs Vital signs: Vital Signs Temp 98.7 F 11/01/20 08:00 Pulse 95 11/01/20 10:00 Resp 22 11/01/20 10:00 BP 100/52 11/01/20 10:00 Pulse Ox 95 11/01/20 10:00 Intake & Output 10/31/20 11/01/20 11/01/20 18:59 06:59 18:59 Intake Total 3220 4778.338 1465 Output Total 340 299 70 Balance 2880 4479.338 1395 Weight 80.3 kg Intake: IV 3100 4375 1350 0.9 1250 Lactated Ringers 1,000 ml 3000 2125 125 @ 125 mls/hr IV .Q8H [facility] Rx#:[id number] Lactated Ringers 1,000 ml 125 @ 125 mls/hr IV .Q8H [facility] Rx#:[id number] Lactated Ringers 1,000 ml 1000 @ 999 mls/hr IV .Q1H1M [facility] Rx#:[id number] Piperacillin-Tazobactam 3 100 100 .375 gm In Sodium Chloride 0.9% 100 ml @ 25 mls/hr IVPB Q8HR [facility] Rx# :[id number] Sodium Chloride 0.9% 1, 1000 000 ml @ 999 mls/hr IV . Q1H1M [facility] Rx#:[id number] Intake, IV Titration 223.338 Amount Amiodarone 450 mg In 223.338 Dextrose 5% in Water 250 ml @ 0.5 MG/MIN 16.667 mls/hr IV .Q15H [facility] Rx#: [id number] Tube Feeding 30 Other 90 180 115 Output: Drainage 50 Abdomen 50 Urine 290 299 70 Other: Voiding Method Indwelling Catheter Indwelling Catheter # Voids 1 - Labs CBC & Chem 7: 11/01/20 03:26 11/01/20 03:26 Labs: Abnormal Lab Results - Last 24 Hours (Table) 10/31/20 10/31/20 11/01/20 Range/Units 11:13 18:06 00:17 RBC (4.30-5.90) m/uL Hgb (13.0-17.5) gm/dL Hct (39.0-53.0) % RDW (11.5-15.5) % Neutrophils # (1.3-7.7) k/uL Lymphocytes # (1.0-4.8) k/uL Sodium (137-145) mmol/L BUN (9-20) mg/dL Creatinine (0.66-1.25) mg/dL Glucose (74-99) mg/dL POC Glucose (mg/dL) 120 H 150 H 108 H (75-99) mg/dL Calcium (8.4-10.2) mg/dL Total Protein (6.3-8.2) g/dL Albumin (3.5-5.0) g/dL 11/01/20 11/01/20 11/01/20 Range/Units 03:26 03:26 05:54 RBC 2.66 L (4.30-5.90) m/uL Hgb 8.1 L D (13.0-17.5) gm/dL Hct 25.2 L (39.0-53.0) % RDW 18.5 H (11.5-15.5) % Neutrophils # 8.6 H (1.3-7.7) k/uL Lymphocytes # 0.4 L (1.0-4.8) k/uL Sodium 132 L (137-145) mmol/L BUN 47 H (9-20) mg/dL Creatinine 1.69 H (0.66-1.25) mg/dL Glucose 118 H (74-99) mg/dL POC Glucose (mg/dL) 134 H (75-99) mg/dL Calcium 8.2 L (8.4-10.2) mg/dL Total Protein 5.1 L (6.3-8.2) g/dL Albumin 2.4 L (3.5-5.0) g/dL Assessment and Plan Plan: Assessment: 1. Acute kidney injury secondary to ATN secondary to hypotension and hemodynamic instability. Renal function a little worse today. No hydronephrosis noted on kidney ultrasound. 2. Chronic kidney disease stage III with baseline creatinine 1.2-1.5 secondary to nephrosclerosis. 3. A. fib with RVR. Maintained on amiodarone and metoprolol. 4. Hyponatremia from acute kidney injury and IV fluids. 5. Failed swallow eval. 6. Diabetes mellitus. 7. Anemia of chronic kidney disease. Maintained on Aranesp. Status post IV iron and blood transfusion this admission. No active bleeding. 8. 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 Underwent reversal of ileostomy with lysis of conditions on October 30. 9. Sepsis secondary to pneumonia. 10. Hypomagnesemia from GI losses. Replaced. Plan: Maintain IV fluids. Monitor volume status closely. Continue to monitor renal function and urine output. Avoid nephrotoxins. Wean vasopressors. Chest x-ray pending.
--- NOTE | 2020-11-01 10:17 | XR ---
EXAMINATION TYPE: XR chest 1V DATE OF EXAM: 11/01/2020 COMPARISON: 10/19/2020 INDICATION: Increased O2 demand TECHNIQUE: Single frontal view of the chest is obtained. FINDINGS: The heart size is upper limits of normal. The pulmonary vasculature is normal. Apical emphysematous changes are present especially at the left apex. This may make identification of a pneumothorax difficult. No obvious pneumothorax is identified. There is a left basilar infiltrate. Minimal infiltrate at the right diaphragm may be present. Small left pleural effusion is present. Tracheostomy tube is in the midline. Right central venous catheter tip is below the level of the clav icle unchanged in position from comparison. Sternotomy wires are present. IMPRESSION: 1. Left lower lobe infiltrate with minimal left pleural effusion. Findings appear similar to comparis on. 2. Minimal subsegmental atelectasis may be at the right base, improved. 3. Emphysematous bulla. 2. Lines and catheters discussed above.
[2020-11-01 11:44] LABS: Glucose,Whole Blood 94 mg/dL (75-99)
--- NOTE | 2020-11-01 12:15 | P.PN ---
Subjective Progress Note Date: 11/01/20 CHIEF COMPLAINT: Respiratory distress HISTORY OF PRESENT ILLNESS: Patient is in the ICU. He is postop day #2 status post reversal of ileostomy, lysis of adhesions, small bowel resection, repair of incisional hernia, partial omentectomy and placement of wound VAC. Patient lying in bed comfortably. Reports his pain is controlled. Patient has had decreased urine output. He has received multiple fluid boluses. He is receiving another 2 L fluid bolus this morning. And maintenance fluids have been increased to 125 mL per hour. Afebrile. WBC is 10 hemoglobin 8.1 creatinine 1.69 patient's blood pressures are slightly improved he is currently off of the Levophed. PHYSICAL EXAM: VITAL SIGNS: Reviewed. GENERAL: Well-developed in no acute distress. HEENT: No sclera icterus. Extraocular movements grossly intact. Moist buccal mucosa. Head is atraumatic, normocephalic. ABDOMEN: Soft. Nondistended. Wound VAC in place along the incision site. Area is clean dry and intact NEUROLOGIC: Alert and oriented. Cranial nerves II through XII grossly intact. ASSESSMENT: 1. High ileostomy output, incisional hernia and extensive adhesions. Patient is status post reversal of ileostomy, lysis of adhesions, small bowel resection, repair of incisional hernia, partial omentectomy and wound VAC placement 2. Abdominal wound at surgical incision site. 3. History of ischemic small bowel with evidence of pneumatosis status post small bowel resection on 07/24/2020. 4. History of intraperitoneal hemorrhage and small bowel ischemia status post exploratory laparotomy, washout of peritoneal cavity and ileostomy with small bowel resection on 08/02/2020 5. 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 Acute hypoxic respiratory failure secondary to pneumonia 7. Sepsis secondary to pneumonia 8. Acute kidney injury 9. chronic Anemia: With known chronic kidney disease and iron deficiency. He did require blood transfusion and IV Iron during this admission 10. Chronic malnutrition secondary to high ileostomy output 11. Unstageable sacral pressure ulcer PLAN: -Continue IV fluids -Oral morphine added to slow stool production -Continue wound VAC -Continue supportive care -Continue ICU management -Continue antibiotics per ID Physician Sports Physical Therapist note has been reviewed by physician. Signing provider agrees with the documented findings, assessment, and plan of care. Objective - Vital Signs Vital signs: Vital Signs Temp 98.3 F 11/01/20 12:00 Pulse 90 11/01/20 12:00 Resp 20 11/01/20 12:00 BP 87/54 11/01/20 12:00 Pulse Ox 94 L 11/01/20 12:00 Intake & Output 10/31/20 11/01/20 11/01/20 18:59 06:59 18:59 Intake Total 3220 4778.338 2681.213 Output Total 340 299 125 Balance 2880 4479.338 2556.213 Weight 80.3 kg Intake: IV 3100 4375 2475 0.9 1250 Lactated Ringers 1,000 ml 3000 2125 125 @ 125 mls/hr IV .Q8H [facility] Rx#:[id number] Lactated Ringers 1,000 ml 250 @ 125 mls/hr IV .Q8H [facility] Rx#:[id number] Lactated Ringers 1,000 ml 2000 @ 999 mls/hr IV .Q1H1M [facility] Rx#:[id number] Piperacillin-Tazobactam 3 100 100 .375 gm In Sodium Chloride 0.9% 100 ml @ 25 mls/hr IVPB Q8HR [facility] Rx# :[id number] Sodium Chloride 0.9% 1, 1000 000 ml @ 999 mls/hr IV . Q1H1M [facility] Rx#:[id number] Intake, IV Titration 223.338 91.213 Amount Amiodarone 450 mg In 223.338 Dextrose 5% in Water 250 ml @ 0.5 MG/MIN 16.667 mls/hr IV .Q15H [facility] Rx#: [id number] Norepinephrine 4 mg In 91.213 Sodium Chloride 0.9% 250 ml @ 0.05 MCG/KG/MIN 14. 44 mls/hr IV .[id number] [facility] Rx#:[id number] Tube Feeding 30 Other 90 180 115 Output: Drainage 50 Abdomen 50 Urine 290 299 125 Other: Voiding Method Indwelling Catheter Indwelling Catheter Indwelling Catheter # Voids 1 - Labs CBC & Chem 7: 11/01/20 03:26 11/01/20 03:26 Labs: Abnormal Lab Results - Last 24 Hours (Table) 10/31/20 11/01/20 11/01/20 Range/Units 18:06 00:17 03:26 RBC (4.30-5.90) m/uL Hgb (13.0-17.5) gm/dL Hct (39.0-53.0) % RDW (11.5-15.5) % Neutrophils # (1.3-7.7) k/uL Lymphocytes # (1.0-4.8) k/uL Sodium 132 L (137-145) mmol/L BUN 47 H (9-20) mg/dL Creatinine 1.69 H (0.66-1.25) mg/dL Glucose 118 H (74-99) mg/dL POC Glucose (mg/dL) 150 H 108 H (75-99) mg/dL Calcium 8.2 L (8.4-10.2) mg/dL Total Protein 5.1 L (6.3-8.2) g/dL Albumin 2.4 L (3.5-5.0) g/dL 11/01/20 11/01/20 Range/Units 03:26 05:54 RBC 2.66 L (4.30-5.90) m/uL Hgb 8.1 L D (13.0-17.5) gm/dL Hct 25.2 L (39.0-53.0) % RDW 18.5 H (11.5-15.5) % Neutrophils # 8.6 H (1.3-7.7) k/uL Lymphocytes # 0.4 L (1.0-4.8) k/uL Sodium (137-145) mmol/L BUN (9-20) mg/dL Creatinine (0.66-1.25) mg/dL Glucose (74-99) mg/dL POC Glucose (mg/dL) 134 H (75-99) mg/dL Calcium (8.4-10.2) mg/dL Total Protein (6.3-8.2) g/dL Albumin (3.5-5.0) g/dL Microbiology - Last 24 Hours (Table) 10/31/20 08:52 Blood Culture - Preliminary Blood No Growth after 24 hours
--- NOTE | 2020-11-01 12:39 | PN ---
PROGRESS NOTE Mr. Tinoco remains in sinus rhythm comfortably. He is not having any further arrhythmia. He appears to be euvolemic. Vitals are stable. He is on a very small dose of Levophed. S1, S2 heard normally, short systolic murmur is audible. Lungs reveal diminished air entry. Abdominal exam deferred. Plan is to continue current medications including the beta apolinar and see how he does. The Levophed is being weaned off. MMODL / IJN: [id number] /
[2020-11-01] MEDS ORDERED: LACTATED RINGERS 1,000 ML IV SCH (14:45)
[2020-11-01] MEDS ORDERED: HYDROCORTISONE SUCCINATE 100 MG/2 ML VIAL IV STA (15:58)
[2020-11-01 16:48] LABS: Phosphorus 3.5 mg/dL (2.5-4.5)
[2020-11-01] MEDS ORDERED: MVI, ADULT NO.4 WITH VIT K 10 ML, TRACE (CONC-1ML/DOSE) 1 ML in AMINO ACID 5%-D20W+LYTE... IV SCH ×6 (18:30→20:00)
[2020-11-01 18:58] LABS: Glucose,Whole Blood 123 mg/dL (75-99)
--- NOTE | 2020-11-01 20:09 | P.PN ---
Progress Note - Text Progress Note Date: 11/01/20 Interval history: This is a pleasant 80 years old male with past medical history of coronary art fuad disease, COPD, diabetes mellitus, hyperlipidemia, hypertension, hypothyroidism, coronary artery disease status post cardiac cath and stent placement. He recently underwent double coronary artery bypass grafting for his triple-vessel coronary artery disease. He was in the hospital from 07/18/20- 08/25/2020 pt has tracheostomhy and PEG tube , Information were obtained with the help of at bedside, he presents with confusion, and a lot of secretion Why he states that after been discharged from acute and he went to [facility] aren't states therefore one month and 5 days and then he was discharged a few days ago to alf at [facility] on Friday, however over the weekend he has more congestion, he has weak cough and needed frequent suctioning, patient was able to talk weekly his little confused but he can't communicate through gesture, he denies pain but he is tachypneic He has tracheostomy, PEG tube and try to colostomy. Admitted with-hypotension secondary to severe sepsis secondary to pneumonia, aspiration pneumonia, acute hypoxic respiratory failure, acute kidney injury secondary to ATN, elevated sodium, increased lactic acid, elevated troponin felt to be from tachycardia. Recent history of intraperitoneal hemorrhage status post laboratory with washout and ileostomy on 08/02/2020. Tracheostomy. C. diff ruled out. Recurrent A. fib. She was able to talk after covering his tracheostomy. Patient started on full liquids. Liquid stools persist. Discussed with Dr. Galvan and dinner Dr. Dempsey. Given that patient has a significant stool output. I highly doubt patient will get better of his discharge. We all agreed that patient should proceed with surgery as soon as possible. Was discussed with the patient at length. He agrees. October 30- patient underwent reversal of ileostomy [lysis of adhesions, small bowel resection, repair of incisional hernia repair, partial omentectomy]. Wound VAC was placed Today-ICU: Blood pressure running low. Getting fluid boluses. PEG tube not being used. On wound VAC. Decreased urine output. Has remained in sinus rhythm. present. Patient with small dose of Levothroid Review of systems: Was done for constitutional, cardiovascular, GI, pulmonary. relevant finding as above Active Medications Acetaminophen (Acetaminophen Tab 325 Mg Tab) 650 mg PO Q6HR PRN PRN Reason: Fever and/ or Pain Last Admin: 10/29/20 21:05 Dose: 650 mg Documented by: Hydrocodone Bitart/Acetaminophen (Hydrocodone/Apap 5-325mg 1 Each Tab) 1 each PO Q6HR PRN PRN Reason: Pain Last Admin: 10/31/20 08:37 Dose: 1 each Documented by: Albuterol/Ipratropium (Ipratropium-Albuterol 3 Ml Neb) 3 ml INHALATION RT-QID [facility] Last Admin: 11/01/20 15:44 Dose: 3 ml Documented by: Albuterol/Ipratropium (Ipratropium-Albuterol 3 Ml Neb) 3 ml INHALATION RT-Q2H PRN PRN Reason: Shortness Of Breath Or Wheezing Last Admin: 10/03/20 21:27 Dose: 3 ml Documented by: Amiodarone HCl (Amiodarone 200 Mg Tab) 400 mg PO BID [facility] Last Admin: 11/01/20 09:39 Dose: 400 mg Documented by: Aspirin (Aspirin 81 Mg) 81 mg PO DAILY [facility] Last Admin: 11/01/20 09:40 Dose: 81 mg Documented by: Atorvastatin Calcium (Atorvastatin 40 Mg Tab) 40 mg PEG/G-TUBE HS@2000 [facility] Last Admin: 10/31/20 20:17 Dose: 40 mg Documented by: Budesonide (Budesonide 1 Mg/2 Ml Nebu) 1 mg INHALATION RT-BID [facility] Last Admin: 11/01/20 07:55 Dose: 1 mg Documented by: Cholestyramine Resin (Cholestyramine (With Sugar) 4 Gm Packet) 4 gm PO QID [facility] Last Admin: 11/01/20 16:42 Dose: 4 gm Documented by: Darbepoetin Alex (Darbepoetin Alex 40 Mcg/0.4 Ml Syringe) 40 mcg SQ Q7D [facility] Last Admin: 10/31/20 12:52 Dose: 40 mcg Documented by: Diphenoxylate HCl/Atropine (Diphenox-Atrop 2.5-0.025 Mg 1 Each Tab) 1 each PO Q6HR [facility] Last Admin: 11/01/20 16:37 Dose: Not Given Documented by: Famotidine (Famotidine 20 Mg Tab) 20 mg PO HS [facility] Last Admin: 03/16/21 20:17 Dose: 20 mg Documented by: Hydromorphone HCl (Hydromorphone 1 Mg/Ml 1 Ml Syringe) 1 mg IVP Q3HR PRN PRN Reason: Pain Last Admin: 11/01/20 14:35 Dose: 1 mg Documented by: Lactated Ringer's (Lactated Ringers) 1,000 mls @ 125 mls/hr IV .Q8H [facility] Last Admin: 11/01/20 16:41 Dose: 125 mls/hr Documented by: Piperacillin Sod/Tazobactam (Sod 3.375 gm/ Sodium Chloride) 100 mls @ 25 mls/hr IVPB Q8HR [facility] Last Admin: 11/01/20 16:42 Dose: 25 mls/hr Documented by: Norepinephrine Bitartrate 4 mg (/ Sodium Chloride) 254 mls @ 14.44 mls/hr IV .[id number] [facility]; Protocol Last Titration: 11/01/20 19:11 Dose: 0.03 mcg/kg/min, 8.664 mls/hr Documented by: Fat Emulsion Intravenous 250 (ml/ IV Solution) 250 mls @ 21 mls/hr IV DAILY [facility] Parenteral Vitamin Supplement 10 ml/ Zinc/Copper/Manganese/Selenium 1 ml/ Amino Ac/Electrol/Dextrose/Calcium 1,011 mls @ 95 mls/hr IV .BY DURATION [facility] Amino Ac/Electrol/Dextrose/Calcium (Clinimix E 5%-20% Solution) 1,000 mls @ 95 mls/hr IV .BY DURATION [facility] Parenteral Vitamin Supplement 10 ml/ Zinc/Copper/Manganese/Selenium 1 ml/ Amino Ac/Electrol/Dextrose/Calcium 1,011 mls @ 30 mls/hr IV .Q24H [facility] Stop: 11/02/20 19:59 Insulin Aspart (Insulin Aspart (Novolog) 100 Unit/Ml Vial) 0 unit SQ Q6H [facility]; Protocol Last Admin: 11/01/20 18:50 Dose: Not Given Documented by: Levothyroxine Sodium (Levothyroxine 50 Mcg Tab) 50 mcg PEG/G-TUBE DAILY@0600 [facility] Last Admin: 11/01/20 06:00 Dose: 50 mcg Documented by: Lidocaine (Lidocaine 5% Patch) 1 patch TOPICAL DAILY [facility] Last Admin: 11/01/20 09:44 Dose: 1 patch Documented by: Melatonin (Melatonin 3 Mg Tablet) 3 mg PO HS PRN PRN Reason: Insomnia Last Admin: 10/29/20 21:05 Dose: 3 mg Documented by: Methyl Salicylate (Methyl Salicylate/Menthol Cream 5 Oz) 1 applic TOPICAL Q6HR PRN PRN Reason: Pain Last Admin: 10/29/20 06:03 Dose: 1 applic Documented by: Metoprolol Tartrate (Metoprolol Tartrate 25 Mg Tab) 25 mg PO TID [facility] Last Admin: 11/01/20 16:42 Dose: 25 mg Documented by: Midodrine (Midodrine 5 Mg Tab) 10 mg PO Q8HR [facility] Last Admin: 11/01/20 16:42 Dose: 10 mg Documented by: Miscellaneous Information (Potassium Replacement Protocol 1 Each Misc) 1 each MISCELLANE DAILY PRN; Protocol PRN Reason: Per Protocol Miscellaneous Information (Magnesium Replacement Protocol 1 Each Misc) 1 each MISCELLANE DAILY PRN; Protocol PRN Reason: Per Protocol Morphine Sulfate (Morphine Oral Soln 10 Mg/5 Ml Cup) 5 mg PO Q4HR [facility] Last Admin: 11/01/20 16:41 Dose: 5 mg Documented by: Naloxone HCl (Naloxone 0.4 Mg/Ml 1 Ml Vial) 0.2 mg IV Q2M PRN PRN Reason: Opioid Reversal Octreotide Acetate (Octreotide 100 Mcg/Ml Inj) 100 mcg SQ Q8HR [facility] Last Admin: 11/01/20 16:41 Dose: 100 mcg Documented by: Ondansetron HCl (Ondansetron 4 Mg/2 Ml Vial) 4 mg IVP Q6HR PRN PRN Reason: Nausea And Vomiting Quetiapine Fumarate (Quetiapine 25 Mg Tab) 25 mg PO HS [facility] Last Admin: 10/31/20 21:10 Dose: 25 mg Documented by: Saliva Substitute (Dry Mouth Choudrant 44.3 Choudrant/44.3 Ml Choudrant) 1 spray MUCOUS MEM QID PRN PRN Reason: Dry Mouth Last Admin: 10/31/20 20:21 Dose: 1 spray Documented by: Sodium Chloride (Sodium Chloride Tab 1 Gm Tab) 1 gm PO TID [facility] Last Admin: 11/01/20 16:42 Dose: 1 gm Documented by: Tamsulosin HCl (Tamsulosin 0.4 Mg Cap.Er.24h) 0.4 mg PO -BRKFST [facility] Last Admin: 11/01/20 09:39 Dose: 0.4 mg Documented by: On examination: VITAL SIGNS: 98.7, 83, 17, 73/46, 98% on trach collar GENERAL APPEARANCE: Laying in bed, tired awake, HEENT:Trach collar with shield EYES: Pupils equal. Conjunctiva normal. NECK: JVD not raised. Mass not palpable. RESPIRATORY: Respiratory effort increased Lungs decreased breath sounds CARDIOVASCULAR: First and second sounds normal. Edema present. ABDOMEN: PEG tube.. Wound VAC. PSYCHIATRY: Alert and oriented x3. Mood and affect tired INVESTIGATIONS, reviewed in the clinical context: Bun 17: WBC 10 hemoglobin 8.1 potassium 4.9 creatinine 1.69 October 31: WBC 619.6 hemoglobin 10.5 potassium 4.8 creatinine 1.37 October 30: WBC 7.7 hemoglobin 9.5 potassium 3.8 creatinine 1.4 October 28: WBC 8.4 hemoglobin 9.6 potassium 4.1 creatinine 1.51 October 27: WBC 7.2 hemoglobin 9 platelets 233 potassium 3.7 creatinine 1.69 October 20: White count 13.2 hemoglobin 9.4 platelets 206 potassium 4 creatinine 1.48 White count 7.1 hemoglobin 8.7 platelets 256 potassium 3.8 bicarbonate 20 bun 33 creatinine 3.17 Sputum culture-positive for Staphylococcus aureus MSSA, Klebsiella Pneumoniae Previous labs: White count 16.6 hemoglobin 9.9 platelets 584 bun 100 creatinine 3.18 Coronavirus PCR-not detected Renal ultrasound-normal bilateral renal ultrasound Assessment and plan: -Hypotensive shock -better. remains off norepinephrine IV , on midodrine- -Abdominal wound at surgical incision site, followed by general surgery with local dressing -History of ischemic small bowel with evidence of pneumatosis status post small bowel resection on 07/24/2020 -Ileostomy for intraperitoneal hemorrhage and small bowel ischemia status post exploratory laboratory or short of periportal cavity on 08/02/2020. Ileostomy reversal on October 30. Now with a wound VAC -Coronary artery disease with bypass in July 2020, and Lopressor. Aspirin -Acute hypoxic respiratory failure secondary to pneumonia, continue with oxygen supplementation, currently with the trach collar, 28% -Anemia secondary to chronic kidney disease , follow H&H -Acute kidney injury secondary to ATN secondary to hypotension and hemodynamic instability - Creatinine 1.48 -Chronic kidney disease stage III the baseline creatinine of 1.2-1.5 secondary to nephrosclerosis -Paroxysmal atrial fibrillation with rapid ventricular rate on amiodarone by mouth, Lopressor, converted to sinus rhythm. Patient has been in and out of rapid A. fib. -Hypernatremia secondary to decreased oral water intake. Receiving free water- improved -Possible aspiration pneumonia, sputum positive for MSSA and Klebsiella pneumoniae., Causing sepsis IV Zosyn-changed to IV cefepime-completed course -Silent aspiration detected by barium study. 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 Ileostomy was reversed on October 30 -DO NOT RESUSCITATE Discussed with Faustina and jose from surgery. Suggested to get a TPN and lipids. As patient started to third space quite a bit. And hopefully start enteral feeding shortly. Discussed with the .
[2020-11-01] MEDS: ATORVASTATIN 40 MG TAB PEG/G-TUBE SCH (21:19)
[2020-11-01] MEDS: FAMOTIDINE 20 MG TAB PO SCH (21:19)
[2020-11-01] MEDS: FAT EMULSION 20% 250 ML in EMPTY BAG 1 BAG IV SCH (21:21)
[2020-11-01] MEDS: QUEtiapine 25 MG TAB PO SCH (21:21)
[2020-11-02] MEDS: DIPHENOX-ATROP 2.5-0.025 MG 1 EACH TAB PO SCH ×4 (00:14→16:13)
[2020-11-02 00:18] LABS: Glucose,Whole Blood 189 mg/dL (75-99)
[2020-11-02] MEDS: MORPHINE ORAL SOLN 10 MG/5 ML CUP PO SCH ×6 (00:25→20:52)
[2020-11-02] MEDS: INSULIN ASPART (NovoLOG) 100 UNIT/ML VIAL SQ SCH ×4 (00:25→18:54)
[2020-11-02] MEDS: PIPERACILLIN-TAZOBACTAM 3.375 GM in SODIUM CHLORIDE 0.9% 100 ML IVPB SCH ×3 (00:39→16:41)
[2020-11-02] MEDS: OCTREOTIDE 100 MCG/ML INJ SQ SCH ×3 (00:39→18:51)
[2020-11-02] MEDS: NOREPINEPHRINE 4 MG in SODIUM CHLORIDE 0.9% 250 ML IV SCH ×2 (00:41→12:00)
[2020-11-02] MEDS: LACTATED RINGERS 1,000 ML IV SCH ×3 (00:41→16:42)
[2020-11-02 05:19] LABS: Anisocytosis Slight; Basophils # (A) 0.1 k/uL (0-0.2); Basophils % (A) 0 %; Eosinophils % (A) 0 %; Hypochromasia Marked; Lymphocytes # (A) 0.4 k/uL (1.0-4.8); Lymphocytes % (A) 3 %; MCH 31.8 pg (25.0-35.0); MCHC 33.1 g/dL (31.0-37.0); MCV 96.1 fL (80.0-100.0); Macrocytosis Slight; Mean Platelet Volume 7.4; Monocytes # (A) 0.7 k/uL (0-1.0); Monocytes % (A) 7 %; Neutrophils # (A) 9.6 k/uL (1.3-7.7); Neutrophils % (A) 89 %; Platelet Count 246 k/uL (150-450); RBC 1.96 m/uL (4.30-5.90); WBC 10.9 k/uL (3.8-10.6)
[2020-11-02 05:24] LABS: HGB 6.2 gm/dL (13.0-17.5)
[2020-11-02 05:25] LABS: HCT 18.9 % (39.0-53.0)
[2020-11-02 05:37] LABS: Ionized Calcium 5.1 mg/dL (4.5-5.3)
[2020-11-02 05:38] LABS: Glucose,Whole Blood 244 mg/dL (75-99)
[2020-11-02] MEDS: HYDROmorphone 1 MG/ML 1 ML SYRINGE IVP PRN ×2 (05:45→13:48)
[2020-11-02 05:47] LABS: Calcium 7.9 mg/dL (8.4-10.2); Magnesium 1.7 mg/dL (1.6-2.3); Potassium 5.1 mmol/L (3.5-5.1)
[2020-11-02] MEDS: LEVOTHYROXINE 50 MCG TAB PEG/G-TUBE SCH (05:47)
[2020-11-02] MEDS: MAGNESIUM SULFATE-D5W PMX 1 GM in DEXTROSE/WATER 1 100ML.BAG IVPB SCH ×2 (07:00→10:26)
[2020-11-02] MEDS: BUDESONIDE 1 MG/2 ML NEBU INHALATION SCH ×2 (07:40→20:01)
[2020-11-02] MEDS: IPRATROPIUM-ALBUTEROL 3 ML NEB INHALATION SCH ×4 (07:40→20:01)
--- NOTE | 2020-11-02 07:44 | XR ---
EXAMINATION TYPE: XR chest 1V portable DATE OF EXAM: 11/02/2020 COMPARISON: 11/01/2020 INDICATION: Short of breath TECHNIQUE: Single frontal view of the chest is obtained. FINDINGS: The heart size is normal. The pulmonary vasculature is normal. Bibasilar infiltrates are present, worsening over the interval. Small pleural effusions are developin g. Tracheostomy tube is in the midline. IMPRESSION: 1. Developing small bilateral pleural effusions. 2. Bibasilar infiltrates, worse
--- NOTE | 2020-11-02 08:32 | PN ---
PROGRESS NOTE Mr. Tinoco is in sinus rhythm. He is having a decreased urine output and hypotensive. He is on Levophed up to 7 mcg. Urine output has decreased. Creatinine is slowly going up. His hemoglobin has come down and he is going to probably receive some blood transfusion. He is maintaining sinus rhythm. He remains on a tracheostomy collar. S1, S2 heard normally, short systolic murmur noted. Lungs reveal a diminished air entry. Abdomen exam was deferred. Lower extremities reveal diminished pulses. Urine output is low. Creatinine is going up. Hemoglobin is down. Prognosis remains guarded on this patient. I am recommending that we decrease the amiodarone to 200 mg b.i.d. MMODL / IJN: [id number] /
[2020-11-02] MEDS: CHOLESTYRAMINE (WITH SUGAR) 4 GM PACKET PO SCH ×3 (09:46→16:43)
[2020-11-02] MEDS: SODIUM CHLORIDE TAB 1 GM TAB PO SCH (09:47)
[2020-11-02] MEDS: METOPROLOL TARTRATE 25 MG TAB PO SCH ×2 (10:27→16:41)
[2020-11-02] MEDS: AMIODARONE 200 MG TAB PO SCH ×2 (10:27→20:56)
--- NOTE | 2020-11-02 10:27 | P.PN ---
Subjective Patient is seen in follow for acute kidney injury. Renal function worsening. Creatinine 2.0 today. Hemoglobin 6.2. No active bleeding. He is now maintained on TPN as well as IV fluids. Remains on Levophed as well. Vital signs are stable. General: The patient appeared well nourished and normally developed. HEENT: Trach noted. LUNGS: Breath sounds decreased. HEART: Rate and Rhythm are regular. ABDOMEN: Soft, non-tender. EXTREMITITES: Trace edema. Objective - Vital Signs Vital signs: Vital Signs Temp 97.7 F 11/02/20 10:12 Pulse 80 11/02/20 10:12 Resp 20 11/02/20 10:12 BP 102/60 11/02/20 10:12 Pulse Ox 93 L 11/02/20 10:12 Intake & Output 11/01/20 11/02/20 11/02/20 18:59 06:59 18:59 Intake Total 4601.213 2109.369 430 Output Total 245 360 70 Balance 4356.213 1749.369 360 Weight 80.3 kg 88.7 kg Intake: IV 4200 1959 176 Fat Emulsion 20% 250 ml 189 21 In Empty Bag 1 bag @ 21 mls/hr IV DAILY [facility] Rx#: [id number] Lactated Ringers 1,000 ml 125 @ 125 mls/hr IV .Q8H ONE Rx#:[id number] Lactated Ringers 1,000 ml 875 1500 125 @ 125 mls/hr IV .Q8H [facility] Rx#:[id number] Lactated Ringers 1,000 ml 3000 @ 999 mls/hr IV .Q1H1M ONE Rx#:[id number] Mvi, Adult No.4 with Vit 270 30 K 10 ml Trace (Conc-1Ml/ Dose) 1 ml In Amino Acid 5%-D20w+Lytes*E* 1,000 ml @ 30 mls/hr IV .Q24H [facility] Rx#:[id number] Piperacillin-Tazobactam 3 200 .375 gm In Sodium Chloride 0.9% 100 ml @ 25 mls/hr IVPB Q8HR [facility] Rx# :[id number] Intake, IV Titration 91.213 150.369 254 Amount Norepinephrine 4 mg In 91.213 150.369 254 Sodium Chloride 0.9% 250 ml @ 0.05 MCG/KG/MIN 14. 44 mls/hr IV .[id number] [facility] Rx#:[id number] Blood Product 0 Rc As-1 Unit 0 [id number] Other 310 Output: Drainage 0 0 25 Abdomen 0 0 25 Urine 245 360 45 Other: Voiding Method Indwelling Catheter Indwelling Catheter - Labs CBC & Chem 7: 11/02/20 03:45 11/02/20 03:45 Labs: Abnormal Lab Results - Last 24 Hours (Table) 11/01/20 11/02/20 11/02/20 Range/Units 18:55 00:16 03:45 WBC (3.8-10.6) k/uL RBC (4.30-5.90) m/uL Hgb (13.0-17.5) gm/dL Hct (39.0-53.0) % RDW (11.5-15.5) % Neutrophils # (1.3-7.7) k/uL Lymphocytes # (1.0-4.8) k/uL Sodium 132 L (137-145) mmol/L Carbon Dioxide 18 L (22-30) mmol/L BUN 49 H (9-20) mg/dL Creatinine 2.00 H (0.66-1.25) mg/dL Glucose 205 H (74-99) mg/dL POC Glucose (mg/dL) 123 H 189 H (75-99) mg/dL Calcium 7.9 L (8.4-10.2) mg/dL Phosphorus 5.0 H (2.5-4.5) mg/dL Crossmatch 11/02/20 11/02/20 11/02/20 Range/Units 03:45 05:35 06:10 WBC 10.9 H (3.8-10.6) k/uL RBC 1.96 L (4.30-5.90) m/uL Hgb 6.2 L* D (13.0-17.5) gm/dL Hct 18.9 L* (39.0-53.0) % RDW 18.0 H (11.5-15.5) % Neutrophils # 9.6 H (1.3-7.7) k/uL Lymphocytes # 0.4 L (1.0-4.8) k/uL Sodium (137-145) mmol/L Carbon Dioxide (22-30) mmol/L BUN (9-20) mg/dL Creatinine (0.66-1.25) mg/dL Glucose (74-99) mg/dL POC Glucose (mg/dL) 244 H (75-99) mg/dL Calcium (8.4-10.2) mg/dL Phosphorus (2.5-4.5) mg/dL Crossmatch See Detail Microbiology - Last 24 Hours (Table) 11/01/20 22:00 Gram Stain - Preliminary Sputum Sputum Culture - Preliminary 10/31/20 08:52 Blood Culture - Preliminary Blood No Growth after 24 hours Assessment and Plan Plan: Assessment: 1. Acute kidney injury secondary to ATN secondary to hypotension, anemia and hemodynamic instability. Renal function worse. Creatinine 2.0 today. No hydronephrosis noted on kidney ultrasound. 2. Chronic kidney disease stage III with baseline creatinine 1.2-1.5 secondary to nephrosclerosis. 3. A. fib with RVR. Maintained on amiodarone and metoprolol. 4. Hyponatremia from acute kidney injury and IV fluids. 5. Failed swallow eval. 6. Diabetes mellitus. 7. Anemia of chronic kidney disease. Maintained on Aranesp. Status post IV iron and blood transfusion this admission. No active bleeding. 8. 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 Underwent reversal of ileostomy with lysis of conditions on October 30. 9. Sepsis secondary to pneumonia. 10. Hypomagnesemia from GI losses. Replaced. Plan: TPN and IV fluids per surgery. Lasix 40 mg IV once after blood transfusion completed. Continue to monitor renal function and urine output. Avoid nephrotoxins. Wean vasopressors. Monitor volume status closely.
[2020-11-02] MEDS: TAMSULOSIN 0.4 MG CAP.ER.24H PO SCH (10:28)
[2020-11-02] MEDS: MIDODRINE 5 MG TAB PO SCH ×2 (10:28→16:41)
[2020-11-02] MEDS: ASPIRIN 81 MG PO SCH (10:28)
[2020-11-02] MEDS: SODIUM BICARBONATE TAB 650 MG TAB PO SCH ×2 (10:41→18:22)
--- NOTE | 2020-11-02 11:25 | P.PN ---
Subjective Progress Note Date: 11/02/20 Principal diagnosis: Acute on chronic hypoxic respiratory failure secondary to left lower lobe pneumonia and sepsis This is a 80-year-old white male familiar to my service, in July 2020, patient underwent elective coronary artery bypass grafting. He had a very complicated postoperative course, patient required multiple abdominal surgeries, multiple intubations, extubations, and the intubations, patient was a failure to wean, and he had multiple abdominal surgeries during his stay. Patient underwent tracheostomy, PEG tube placement, and we were able to transfer the pa maty to an extended care facility. He was at the extended care facility until about a week ago, his tracheostomy was capped, and he was transferred to [facility] in [facility]. Patient has been noticing increased cough, increased shortness of breath, and significant purulent secretions from the tracheostomy tube when uncapped. O2 saturation was dipping down into the 50s and in the ER he had a saturation of 86% on 15 L high flow nasal cannula. Patient was also noted to have leukocytosis, hemoglobin was low, his troponin was slightly elevated, blood pressure was noted to be marginally low, patient was admitted initially to the cardiac floor, however supposedly he was noted to have blood pressure in the 70s systolic. Patient did receive multiple fluid boluses in the ER over 3 L were given, and we were notified about the patient on the floor having low blood pressure, I recommended transferred to the ICU planning to start the patient on norepinephrine. However over the last 12 hours in the ICU, his blood pressure has been stable patient did not require placement on any pressors. His beta blockers had been on hold because of low blood pressure, and he is maintained on amiodarone. His pro-calcitonin level was noted to be 2.60. And his chest x-ray showed left lower lobe atelectasis, suspect left lower lobe pneumonia. And he had small pleural effusions noted more so than right. Going back to his previous hospital admission, patient did have left lower lobe pneumonia and he did have left pleural effusion requiring thoracentesis once or twice. Cultures previously from the sputum were positive for Pseudomonas fluorescence/putida, sensitive to Zosyn and Levaquin and meropenem. Also sensitive to cefepime. Considering the patient's presentation with hypotension, shortness of breath, cough, abnormal chest x-ray, hypoxia, and considering his recent clinical history, we were asked to see him on consultation Patient was reevaluated today on 10/04/2020, patient remains in the ICU, he is on trach collar a 55%, patient went into atrial fibrillation with RVR yesterday, and he went on amiodarone at 1 mg/m, he also received 1 unit of packed RBCs for hemoglobin of 6.7, patient converted to sinus rhythm. Remains in sinus rhythm, patient is receiving tube feeds/Nepro at 65/65. He is also receiving free water. Chest x-ray is showing minimal improvement in the left lower lobe consolidation, clinically the patient is feeling better, he is empirically on antibiotics for healthcare acquired pneumonia/Zosyn. Previous sputum cultures were positive for Pseudomonas, hence his Zosyn was chosen as the drug of choice. CBC today showed WBC 7.2 hemoglobin 6.7, hence a unit of blood was given. Electrolytes showed low sodium but improving today is 148 from 150 to yesterday. BUN is 108 creatinine 3.4 to about the same as yesterday. Reevaluated today on 10/05/2020, patient remains in the ICU, remains on 55% trach collar. Off norepinephrine, IV fluids at KVO, tolerating enteral feeding via PEG tube, patient continues to have significant amount of tracheal secretions, he is now on Zosyn and vancomycin, as well as Zyvox. His cultures from the sputum are showing MSSA, hence we will discontinue vancomycin, keep him on Zosyn, and infectious disease to address his Zyvox. Patient may not even require Zyvox considering the culture is positive for MSSA. Chest x-ray is showing bilateral pleural effusions/small, renal functioning is slightly improved over the last 24 hours. Patient was switched to oral amiodarone, and he seems to be doing quite well, in sinus rhythm. Reevaluated today on 10/06/2020, patient remains in the ICU, remains on trach collar at 28%, sputum came back positive for Klebsiella and MSSA. Patient is on Zosyn and Zyvox. Remains on a small dose of norepinephrine at 0.01 mcg/kg/m, remains on enteral feeding/Nepro at 65 ML per hour, also receiving Questran. Patient continues to have significant output from his ileostomy. Patient is feeling better overall compared to how he felt on presentation. CBC today is relatively normal WBC count is 7.1 hemoglobin is 8.7, electrolytes are normal BUN is 93 creatinine is 3.17, improving over the last couple of days. Blood cultures remain negative. Again his sputum cultures are positive for MSSA and Klebsiella pneumonia. Reevaluated today on 10/07/2020, patient remains in the ICU, remains on trach collar at 28%, receiving antibiotics for his Klebsiella and MSSA pneumonia. Patient is only on Zosyn, and his Zyvox was discontinued since it was initially started by infectious disease for possible MRSA. Patient is requiring intermittently small doses of norepinephrine, clinically however the patient is much better compared to how he felt when he came in. He is in no distress, this morning he is off norepinephrine, but he didn't require norepinephrine last night, hence I will not transfer the patient out of the ICU yet. Chest x-ray continues to show by basilar atelectasis, possible left lower lobe consolidation which is chronic. Secretions from the tracheostomy are less and less. Renal profile is improving, creatinine is down to 2.9. CBC is normal. Electrolytes are normal. On 10/08/2020 the patient is being seen in follow-up in the intensive unit. His , comfortable and currently is on a trach collar with an FiO2 of 28%. The chest x-ray shows small bilateral pleural effusions and there is adequate expansion of both lungs and a orotracheal tube is in a good location. Note that he had MSSA and Klebsiella in his sputum and patient is currently on IV antibiotics and he is receiving IV Zosyn. Patient continues to have copious amount of secretions through his tracheostomy tube and the patient has a #[address] tracheostomy tube in place and he is requiring suctioning every 2 hours at least. He still has a lot of rhonchi He is currently off pressors. He is in normal sinus rhythm. He has also PEG tube for enteral feeding and nutritional support. PEG tube is in place and the patient is on Nepro at the rate of 75 mL an hour. He continues to have output through his ileostomy bag. The patient has significant amount of output through his ileostomy was in the order of every 12 hours. No abdominal distention. No signs of any respiratory distress. The creatinine is improving and is currently down to 2.5 and the patient's hemoglobin is at 8.4. No fever. No other issues overnight. Villafana cath is also in place. He is able to communicate. However he is still profoundly weak/in lower extremities. He is able to raise his arms against gravity. On 10/09/2020 patient seen in follow-up in the intensive care unit. Patient is awake and alert, is following commands, moving all 4 extremities, no signs of any respiratory distress, he is breathing comfortably, on 28% trach collar. His pulse ox is 98%. Still having some secretions from his tracheostomy, related he is on Zosyn for antibiotic coverage. Remains on nebulized bronchodilators, hemodynamically patient has been stable. No requiring any vasopressor support for last 48 hours. No acute events overnight. His sputum cultures were positive for MSSA and Klebsiella pneumonia. Today's labs have been reviewed, normal white count at 8.5, hemoglobin is 9.0, sodium is 137, potassium is 3.7, chloride is 110, B1 is 67, creatinine is 2.18. Patient has been nothing by mouth and has been receiving nutrition in the form of Nepro at 65 with a goal of 65. Patient has had significant diarrhea, liquid yellow output from his ileostomy. No complaints of chest pain. He is in sinus mechanism with a controlled rate. Chest x-ray shows basilar infiltrates and atelectasis with small effusions. On 10/10/2020 patient seen in follow-up in the intensive care unit. He is awake and alert, oriented 3, his calm and cooperative, he denies any acute distress, he still has significant amount of secretions that are being suctioned from the tracheostomy tube, he remains on 20% trach collar. He remains on antibiotics, his sputum cultures were positive for MSSA and Klebsiella pneumonia, he is on Zosyn, he has had no fever or chills. Lung sounds reveal minimal rhonchi, less congested and wheezy on today's exam compared a few days ago. Patient is tolerating tube feedings, he remains strict nothing by mouth, he is on Nepro at a rate of 65 ML per hour with a goal of 65 with 125 ML free water flushes every 3 hours. Abdomen is soft, ileostomy is still producing copious amount of liquid yellow diarrhea, which will be sent for C. diff. There has been a total of 2.5 L in stool output in the last 24 hours. Today's labs have been reviewed, white blood cell count is 8.9, hemoglobin is 8.9, CO2 is 18, sodium is 138, potassium is 3.9, chloride is 110, renal profile is improving despite the diarrhea, with BUN of 63, creatinine is 1.94. Patient is working with physical therapy and yesterday he apparently was up in the chair with assistance, tolerated activity well. On 10/11/2020 patient seen in follow-up in intensive care unit, she remains on 28% trach collar, the pulse ox of 97%, vital signs have been stable, his been afebrile, he did have a run of A. fib with RVR this morning and was restarted on amiodarone drip and was given 150 mg bolus of amiodarone. He is currently back in sinus mechanism with a controlled rate, receiving hydration with LR at 75 ML per hour, he continues to have large volume diarrhea out of his ileostomy, he had to 3.3 L in stool output in last 24 hours, C. diff was negative. tube feedings have been switched to vital AF currently running at 75 ML per hour, patient is getting free water flushes of 125 ML every 3 hours. Yesterday we placed him on lactated Ringer's at rate of 75 ML per hour, he is receiving or sodium bicarbonate tablets, his bicarbonate concentration at today's labs has improved and is up to 23. The renal profile slightly improved. Continues on Zosyn for MSSA and Klebsiella pneumonia in sputum cultures, blood cultures have been negative, patient has been afebrile, blood pressure stable, the patient continues on midodrine. Patient is awake and alert, following commands, responding appropriately, appears tired on today's exam. Denies any acute distress, his been working with physical therapy, he stood at the bedside, he is too weak to walk. Abdomen is soft, mid abdominal incision is covered with a dressing. On 10/12/2020 patient seen in follow-up in the intensive care unit. Patient is up in the recliner, breathing comfortably, she is on 20% trach collar, lung sounds are less congested and rhonchorous on today's exam. He is awake and oriented 3, denies any distress, he is currently on lactated Ringer's at a rate of 75 ML per hour, no recurrence of A. fib RVR overnight, his amiodarone is infusing at 0.5 mg/m and he will be transitioned to oral amiodarone today per cardiology, he remained in sinus rhythm. Vital signs are stable. He is on tube feedings of vital AF a rate of 90 with a goal of 90 with 125 ML free water flushes every 3 hours. His diarrhea output has decreased some, patient had 2 L in the liquid ostomy is stool output in the last 24 hours, he is on Lomotil when necessary. No abdominal pain. no nausea or vomiting no nausea or vomiting. The secretions out of the tracheostomy tube have decreased. Patient has been nothing by mouth, she would like to have a swallow evaluation to be evaluated for oral feedings. Today's chest x-ray has been reviewed showing left lower lobe infiltrate and/or pleural effusion, and improving aeration in the right lower lobe. Today's labs have been reviewed, showing white blood cell count of 12.4, hemoglobin of 9.3, electrolytes within normal limits, renal profile shows slight improvement in creatinine, down to 1.6 today. On 10/31/2020 patient seen in follow-up in the intensive care unit, yesterday patient underwent reversal of ileostomy, lysis of adhesions, small bowel resection, repair of incisional hernia partial omentectomy and placement of a wound VAC. This morning patient is back on 20% trach collar, he is breathing comfortably, his pulse oximetry 97%, he is awake and alert, oriented 3, he is able to verbally respond occluding his tracheostomy, denies any significant cough or congestion, has had no fever or chills, blood pressures are slightly low this morning, with systolic of 87/53, his IV fluid rate will be increased to 125, in addition patient had a run of A. fib with RVR last night and was started on amiodarone drip currently running at 0.5 mg/m per cardiology and is currently back to sinus rhythm with a controlled rate. He remains nothing by mouth, his abdominal incision has a wound VAC placed with black foam, and there is some moderate amount of thin serosanguineous output in the wound VAC canister. NAIN drain with minimal serosanguineous output, PEG tube is in place, and the tube feedings are on hold, no bowel sounds he is, and patient denies passing any gas yet. Lung sounds are clear, diminished at the bases, patient prefers to lie flat in bed related to his coccygeal sacral wounds and pain from that. Wound treatments and dressing changes are per ID service recommendations. Villafana catheter is in place patient is producing urine output in the order of 24-30 ML per hour. Today's labs have been reviewed, showing white blood cell count of 19.6, hemoglobin 10.5, sodium is 133, CO2 was 20, BUN was 50, creatinine is 1.3, potassium is 4.8. Patient is on Zosyn for empiric antibiotic coverage. On 11/01/2020 patient seen in follow-up in intensive care unit, he is awake, in no acute distress, breathing comfortably, he is currently on 40% trach collar, his pulse ox is 96%, no fever or chills, did have some low blood pressures overnight, was systolic in the 70s. Yesterday we gave the patient additional fluids. He has been nothing by mouth, history feedings have been on hold, he is postoperative day #2 status post reversal of ileostomy. Today's chest x-ray has been reviewed showing left greater than right pleural effusions and bibasilar atelectasis. Not significantly changed from previous chest x-ray. Today's labs have been reviewed, showing medically improved leukocytosis, with Elocon is within normal limits today, down to 10 from 19.6 on yesterday's labs, hemoglobin is 8.1, sodium is 132, the rest of the electrolytes are within normal limits, BUN is 47, creatinine is 1.69. Remains on antibiotics for MSSA and Klebsiella pneumonia in the sputum, follow up on sputum culture was just positive for Radha albicans, blood and urine cultures show no growth. She is in sinus mechanism, he has been transitioned to oral amiodarone 400 mg twice a day per cardiology, amiodarone drip has been discontinued, laxative Ringer's is currently infusing at 125 ML per hour, and Levaquin and is infusing at 0.02 mics per kilo per minute or 2.5 mics per minute, patient did receive another liter bolus this morning per surgical services. He is on octreotide and Lomotil. Has not had a bowel movement yet. Abdominal incisions clean dry and intact. On 11/02/2020 patient seen in follow-up in intensive care unit, today is postoperative day #3 status post reversal of ileostomy, he is resting comfortably in bed, he states he is tired today, did not sleep well last night. Appears to be in no acute distress, he remains on 40% trach collar with pulse ox of 90-93%, yesterday patient received additional IV fluids, his IV is lactated Ringer's at a rate of 125 ML per hour, he remains on TPN at 30 ML per hour, and patient is on Levaquin at 3.5 mics per minute. History feedings remain on hold, and patient remains nothing by mouth. He has not passed any stool, his bowel sounds are very hypoactive but abdomen is soft, mid abdominal incision wound VAC in place. Sputum culture has been sent, yellow cook phlegm is being suctioned from his tracheostomy. Urine culture has shown no growth, currently on Zosyn for antibiotic coverage, he is receiving oral bicarbonate as well, 6.2, patient received 1 unit of packed red blood cells. Renal profile has worsened on today's labs, BUN is 49 creatinine is 2.0 Objective - Vital Signs Vital signs: Vital Signs Temp 97.5 F L 11/02/20 10:52 Pulse 90 11/02/20 10:52 Resp 20 11/02/20 10:52 BP 110/65 11/02/20 10:52 Pulse Ox 90 L 11/02/20 10:52 Intake & Output 11/01/20 11/02/20 11/02/20 18:59 06:59 18:59 Intake Total 4601.213 2109.369 1016 Output Total 245 360 175 Balance 4356.213 1749.369 841 Weight 80.3 kg 88.7 kg Intake: IV 4200 1959 762 Fat Emulsion 20% 250 ml 189 42 In Empty Bag 1 bag @ 21 mls/hr IV DAILY [facility] Rx#: [id number] Lactated Ringers 1,000 ml 125 @ 125 mls/hr IV .Q8H [facility] Rx#:[id number] Lactated Ringers 1,000 ml 875 1500 500 @ 125 mls/hr IV .Q8H [facility] Rx#:[id number] Lactated Ringers 1,000 ml 3000 @ 999 mls/hr IV .Q1H1M [facility] Rx#:[id number] Magnesium Sulfate-D5w Pmx 100 1 gm In Dextrose/Water 1 100ml.bag @ 100 mls/hr IVPB Q1H [facility] Rx#: [id number] Mvi, Adult No.4 with Vit 270 120 K 10 ml Trace (Conc-1Ml/ Dose) 1 ml In Amino Acid 5%-D20w+Lytes*E* 1,000 ml @ 30 mls/hr IV .Q24H [facility] Rx#:[id number] Piperacillin-Tazobactam 3 200 .375 gm In Sodium Chloride 0.9% 100 ml @ 25 mls/hr IVPB Q8HR [facility] Rx# :[id number] Intake, IV Titration 91.213 150.369 254 Amount Norepinephrine 4 mg In 91.213 150.369 254 Sodium Chloride 0.9% 250 ml @ 0.05 MCG/KG/MIN 14. 44 mls/hr IV .[id number] [facility] Rx#:[id number] Blood Product 0 Rc As-1 Unit 0 [id number] Other 310 Output: Drainage 0 0 25 Abdomen 0 0 25 Urine 245 360 150 Other: Voiding Method Indwelling Catheter Indwelling Catheter - Exam GENERAL EXAM: Alert, very pleasant, 80-year-old white male on the 40% trach collar on 95%, comfortable in no apparent distress. HEAD: Normocephalic/atraumatic. EYES: Normal reaction of pupils, equal size. Conjunctiva pink, sclera white. NOSE: Clear with pink turbinates. THROAT: No erythema or exudates. NECK: No masses, no JVD, no thyroid enlargement, no adenopathy. Midline tracheo stomy in place, CHEST: No chest wall deformity. Symmetrical expansion. LUNGS: Equal air entry with no crackles, wheeze, rhonchi or dullness. CVS: Regular rate and rhythm, normal S1 and S2, no gallops, no murmurs, no rubs ABDOMEN: Soft, nontender. No hepatosplenomegaly, normal bowel sounds, no gua rding or rigidity. Midabdominal incision has a wound VAC with black foam in his abdominal incision, with a moderate amount of thin serosanguineous output in the canister, 1 NAIN drain on the right, PEG tube is on the left upper quadrant EXTREMITIES: No clubbing, no edema, no cyanosis, 2+ pulses and upper and lower extremities. MUSCULOSKELETAL: Muscle strength and tone normal. SPINE: No scoliosis or deformity SKIN: No rashes, he has a stage III sacral decubitus on his sacrum, and left heel wound CENTRAL NERVOUS SYSTEM: Alert and oriented -3. No focal deficits, tone is normal in all 4 extremities. PSYCHIATRIC: Alert and oriented -3. Appropriate affect. Intact judgment and insight. - Labs CBC & Chem 7: 11/02/20 03:45 11/02/20 03:45 Labs: Abnormal Lab Results - Last 24 Hours (Table) 11/01/20 11/02/20 11/02/20 Range/Units 18:55 00:16 03:45 WBC (3.8-10.6) k/uL RBC (4.30-5.90) m/uL Hgb (13.0-17.5) gm/dL Hct (39.0-53.0) % RDW (11.5-15.5) % Neutrophils # (1.3-7.7) k/uL Lymphocytes # (1.0-4.8) k/uL Sodium 132 L (137-145) mmol/L Carbon Dioxide 18 L (22-30) mmol/L BUN 49 H (9-20) mg/dL Creatinine 2.00 H (0.66-1.25) mg/dL Glucose 205 H (74-99) mg/dL POC Glucose (mg/dL) 123 H 189 H (75-99) mg/dL Calcium 7.9 L (8.4-10.2) mg/dL Phosphorus 5.0 H (2.5-4.5) mg/dL Crossmatch 11/02/20 11/02/20 11/02/20 Range/Units 03:45 05:35 06:10 WBC 10.9 H (3.8-10.6) k/uL RBC 1.96 L (4.30-5.90) m/uL Hgb 6.2 L* D (13.0-17.5) gm/dL Hct 18.9 L* (39.0-53.0) % RDW 18.0 H (11.5-15.5) % Neutrophils # 9.6 H (1.3-7.7) k/uL Lymphocytes # 0.4 L (1.0-4.8) k/uL Sodium (137-145) mmol/L Carbon Dioxide (22-30) mmol/L BUN (9-20) mg/dL Creatinine (0.66-1.25) mg/dL Glucose (74-99) mg/dL POC Glucose (mg/dL) 244 H (75-99) mg/dL Calcium (8.4-10.2) mg/dL Phosphorus (2.5-4.5) mg/dL Crossmatch See Detail Microbiology - Last 24 Hours (Table) 10/31/20 08:52 Blood Culture - Preliminary Blood No Growth after 48 hours 11/01/20 22:00 Gram Stain - Preliminary Sputum Sputum Culture - Preliminary Assessment and Plan Plan: Assessment: #1. High output ileostomy, status post reversal of ileostomy, lysis of adhesions, repair of incisional hernia repair, partial omentectomy, and wound VAC placement, postoperative day #3, surgery was on 10/30/2020 #2. Hypotension, related to intravascular volume depletion, currently requiring small amount of levofed, and patient is being fluid resuscitated #3. Bilateral lower lobe pneumonia with sepsis related to MSSA and Klebsiella pneumonia #4. Acute on chronic hypoxic rest or a failure secondary to pneumonia and COPD, patient is on 28% trach collar for history of prolonged mechanical ventilator support after cardiac surgery #5. Sepsis secondary to pneumonia, improving #6. Acute on chronic kidney injury secondary to sepsis, ATN, improved #7. Triple-vessel coronary artery disease on 07/18/2020 with multiple postoperative complications and placement of tracheostomy and PEG tube [facility] where she was weaned off the ventilator support #8. Stage III equal decubitus ulcer and stage II on his left heel #9. Benign essential hypertension #10. Type 2 diabetes mellitus #11. History of bowel resection and ileostomy on 08/02/2020 #12. Generalized weakness and general medical debility #13. Anemia of chronic disease #14. Episode of A. fib with RVR on 10/30/2020, started on amiodarone drip, and currently back to sinus rhythm Plan: We'll start the patient on IV hydrocortisone 50 mg every 6 hours, wean Levaquin, continue IV fluids, continue current antibiotics, patient received a unit of blood for hemoglobin of 6.2, TV TPN, denied initiation per surgery. Patient has not passed any stones yet, lung sounds are very hypoactive, antibiotics and wound care per ID service and wound care team. Maintain aspiration precautions. Continue monitoring in the intensive care unit. I performed a history & physical examination of the patient and discussed their management with my nurse practitioner, Cheli Kendrick. I reviewed the nurse practitioner's note and agree with the documented findings and plan of care. Lung sounds are positive for diminished breath sounds The findings and the impression was discussed with the patient. I attest to the documentation by the nurse practitioner. Time with Patient: Less than 30
--- NOTE | 2020-11-02 11:45 | P.PN ---
Subjective Progress Note Date: 11/02/20 CHIEF COMPLAINT: Respiratory distress HISTORY OF PRESENT ILLNESS: Patient is in the ICU. He is postop day #3 status post reversal of ileostomy, lysis of adhesions, small bowel resection, repair of incisional hernia, partial omentectomy and placement of wound VAC. Patient lying in bed comfortably. Reports his pain is controlled. Patient still has decreased urine output. He has received multiple fluid boluses and maintenance fluids have been increased to 125 mL per hour. TPN was started yesterday. His hemoglobin has dropped to 6.2 and he is receiving 1 unit of blood. WBC 10.9 creatinine is up at 2.00 he does remain on Levophed. Patient has had no stools or flatus. PHYSICAL EXAM: VITAL SIGNS: Reviewed. GENERAL: Well-developed in no acute distress. HEENT: No sclera icterus. Extraocular movements grossly intact. Moist buccal mucosa. Head is atraumatic, normocephalic. ABDOMEN: Soft. Nondistended. Wound VAC in place along the incision site. Area is clean dry and intact NEUROLOGIC: Alert and oriented. Cranial nerves II through XII grossly intact. ASSESSMENT: 1. High ileostomy output, incisional hernia and extensive adhesions. Patient is status post reversal of ileostomy, lysis of adhesions, small bowel resection, repair of incisional hernia, partial omentectomy and wound VAC placement on 10/30/2020 2. Abdominal wound at surgical incision site. 3. History of ischemic small bowel with evidence of pneumatosis status post small bowel resection on 07/24/2020. 4. History of intraperitoneal hemorrhage and small bowel ischemia status post exploratory laparotomy, washout of peritoneal cavity and ileostomy with small bowel resection on 08/02/2020 5. 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 Acute hypoxic respiratory failure secondary to pneumonia 7. Sepsis secondary to pneumonia 8. Acute kidney injury 9. chronic Anemia: With known chronic kidney disease, iron deficiency and severe protein calorie malnutrition. He did require blood transfusion and IV Iron during this admission 10. Chronic malnutrition secondary to high ileostomy output 11. Unstageable sacral pressure ulcer PLAN: -Continue IV fluids -Continue wound VAC -Continue local wound care -Continue supportive care -Continue ICU management -Continue antibiotics per ID Physician Grill Attendant note has been reviewed by physician. Signing provider agrees with the documented findings, assessment, and plan of care. Objective - Vital Signs Vital signs: Vital Signs Temp 97.5 F L 11/02/20 10:52 Pulse 89 11/02/20 11:00 Resp 31 H 11/02/20 11:30 BP 104/65 11/02/20 11:30 Pulse Ox 91 L 11/02/20 11:30 Intake & Output 11/01/20 11/02/20 11/02/20 18:59 06:59 18:59 Intake Total 4601.213 2109.369 1016 Output Total 245 360 175 Balance 4356.213 1749.369 841 Weight 80.3 kg 88.7 kg Intake: IV 4200 1959 762 Fat Emulsion 20% 250 ml 189 42 In Empty Bag 1 bag @ 21 mls/hr IV DAILY [facility] Rx#: [id number] Lactated Ringers 1,000 ml 125 @ 125 mls/hr IV .Q8H ONE Rx#:[id number] Lactated Ringers 1,000 ml 875 1500 500 @ 125 mls/hr IV .Q8H [facility] Rx#:[id number] Lactated Ringers 1,000 ml 3000 @ 999 mls/hr IV .Q1H1M [facility] Rx#:[id number] Magnesium Sulfate-D5w Pmx 100 1 gm In Dextrose/Water 1 100ml.bag @ 100 mls/hr IVPB Q1H [facility] Rx#: [id number] Mvi, Adult No.4 with Vit 270 120 K 10 ml Trace (Conc-1Ml/ Dose) 1 ml In Amino Acid 5%-D20w+Lytes*E* 1,000 ml @ 30 mls/hr IV .Q24H [facility] Rx#:[id number] Piperacillin-Tazobactam 3 200 .375 gm In Sodium Chloride 0.9% 100 ml @ 25 mls/hr IVPB Q8HR [facility] Rx# :[id number] Intake, IV Titration 91.213 150.369 254 Amount Norepinephrine 4 mg In 91.213 150.369 254 Sodium Chloride 0.9% 250 ml @ 0.05 MCG/KG/MIN 14. 44 mls/hr IV .[id number] [facility] Rx#:[id number] Blood Product 0 Rc As-1 Unit 0 [id number] Other 310 Output: Drainage 0 0 25 Abdomen 0 0 25 Urine 245 360 150 Other: Voiding Method Indwelling Catheter Indwelling Catheter - Labs CBC & Chem 7: 11/02/20 03:45 11/02/20 03:45 Labs: Abnormal Lab Results - Last 24 Hours (Table) 11/01/20 11/02/20 11/02/20 Range/Units 18:55 00:16 03:45 WBC (3.8-10.6) k/uL RBC (4.30-5.90) m/uL Hgb (13.0-17.5) gm/dL Hct (39.0-53.0) % RDW (11.5-15.5) % Neutrophils # (1.3-7.7) k/uL Lymphocytes # (1.0-4.8) k/uL Sodium 132 L (137-145) mmol/L Carbon Dioxide 18 L (22-30) mmol/L BUN 49 H (9-20) mg/dL Creatinine 2.00 H (0.66-1.25) mg/dL Glucose 205 H (74-99) mg/dL POC Glucose (mg/dL) 123 H 189 H (75-99) mg/dL Calcium 7.9 L (8.4-10.2) mg/dL Phosphorus 5.0 H (2.5-4.5) mg/dL Crossmatch 11/02/20 11/02/20 11/02/20 Range/Units 03:45 05:35 06:10 WBC 10.9 H (3.8-10.6) k/uL RBC 1.96 L (4.30-5.90) m/uL Hgb 6.2 L* D (13.0-17.5) gm/dL Hct 18.9 L* (39.0-53.0) % RDW 18.0 H (11.5-15.5) % Neutrophils # 9.6 H (1.3-7.7) k/uL Lymphocytes # 0.4 L (1.0-4.8) k/uL Sodium (137-145) mmol/L Carbon Dioxide (22-30) mmol/L BUN (9-20) mg/dL Creatinine (0.66-1.25) mg/dL Glucose (74-99) mg/dL POC Glucose (mg/dL) 244 H (75-99) mg/dL Calcium (8.4-10.2) mg/dL Phosphorus (2.5-4.5) mg/dL Crossmatch See Detail Microbiology - Last 24 Hours (Table) 10/31/20 08:52 Blood Culture - Preliminary Blood No Growth after 48 hours 11/01/20 22:00 Gram Stain - Preliminary Sputum Sputum Culture - Preliminary
[2020-11-02 12:01] LABS: Glucose,Whole Blood 163 mg/dL (75-99)
[2020-11-02] MEDS: HYDROCORTISONE SUCCINATE 100 MG/2 ML VIAL IV SCH ×2 (12:01→16:43)
[2020-11-02] MEDS: FAT EMULSION 20% 250 ML in EMPTY BAG 1 BAG IV SCH (13:44)
[2020-11-02] MEDS: LIDOCAINE 5% PATCH TOPICAL SCH ×2 (13:44→16:42)
--- NOTE | 2020-11-02 14:21 | XR ---
EXAMINATION TYPE: XR chest 1V portable DATE OF EXAM: 11/02/2020 COMPARISON: 11/02/2020 INDICATION: Oxygenation tissues, shortness of breath TECHNIQUE: Single frontal view of the chest is obtained. FINDINGS: The heart size is normal. The pulmonary vasculature is normal. Basilar infiltrates are present. These appear similar to prior study. Small pleural effusions may be present. Tracheostomy tube is in the midline. Sternotomy wires are present. PICC line enters on the left with the tip in the subclavian region IMPRESSION: 1. Bibasilar infiltrates with small bilateral pleural effusions
[2020-11-02] MEDS: DRY MOUTH SPRAY 44.3 SPRAY/44.3 ML SPRAY MUCOUS MEM PRN (18:23)
[2020-11-02 18:54] LABS: Glucose,Whole Blood 161 mg/dL (75-99)
--- NOTE | 2020-11-02 20:24 | P.PN ---
Progress Note - Text Progress Note Date: 11/02/20 Interval history: This is a pleasant 80 years old male with past medical history of coronary art fuad disease, COPD, diabetes mellitus, hyperlipidemia, hypertension, hypothyroidism, coronary artery disease status post cardiac cath and stent placement. He recently underwent double coronary artery bypass grafting for his triple-vessel coronary artery disease. He was in the hospital from 07/18/20- 08/25/2020 pt has tracheostomhy and PEG tube , Information were obtained with the help of at bedside, he presents with confusion, and a lot of secretion Why he states that after been discharged from acute and he went to [facility] aren't states therefore one month and 5 days and then he was discharged a few days ago to [facility] at [facility] on Friday, however over the weekend he has more congestion, he has weak cough and needed frequent suctioning, patient was able to talk weekly his little confused but he can't communicate through gesture, he denies pain but he is tachypneic He has tracheostomy, PEG tube and try to colostomy. Admitted with-hypotension secondary to severe sepsis secondary to pneumonia, aspiration pneumonia, acute hypoxic respiratory failure, acute kidney injury secondary to ATN, elevated sodium, increased lactic acid, elevated troponin felt to be from tachycardia. Recent history of intraperitoneal hemorrhage status post laboratory with washout and ileostomy on 08/02/2020. Tracheostomy. C. diff ruled out. Recurrent A. fib. She was able to talk after covering his tracheostomy. Patient started on full liquids. Liquid stools persist. Discussed with Dr. Galvan and dinner Dr. Dempsey. Given that patient has a significant stool output. I highly doubt patient will get better of his discharge. We all agreed that patient should proceed with surgery as soon as possible. Was discussed with the patient at length. He agrees. October 30- patient underwent reversal of ileostomy [lysis of adhesions, small bowel resection, repair of incisional hernia repair, partial omentectomy]. Wound VAC was placed. Postprocedure. Blood pressure low. Started on levo fed. Did have a run of A. fib uncontrolled. Started on TPN and lipids. Today-ICU: Patient of couple maroon stools dark. Hemoglobin did drop down to 6.2. Patient currently is second unit of blood. Blood pressure running in the low side. On levo fed. Sinus rhythm. Review of systems: Was done for constitutional, cardiovascular, GI, pulmonary. relevant finding as above Active Medications Acetaminophen (Acetaminophen Tab 325 Mg Tab) 650 mg PO Q6HR PRN PRN Reason: Fever and/ or Pain Last Admin: 10/29/20 21:05 Dose: 650 mg Documented by: Hydrocodone Bitart/Acetaminophen (Hydrocodone/Apap 5-325mg 1 Each Tab) 1 each PO Q6HR PRN PRN Reason: Pain Last Admin: 10/31/20 08:37 Dose: 1 each Documented by: Albuterol/Ipratropium (Ipratropium-Albuterol 3 Ml Neb) 3 ml INHALATION RT-QID [facility] Last Admin: 11/02/20 20:01 Dose: 3 ml Documented by: Albuterol/Ipratropium (Ipratropium-Albuterol 3 Ml Neb) 3 ml INHALATION RT-Q2H PRN PRN Reason: Shortness Of Breath Or Wheezing Last Admin: 10/03/20 21:27 Dose: 3 ml Documented by: Amiodarone HCl (Amiodarone 200 Mg Tab) 200 mg PO BID [facility] Last Admin: 11/02/20 10:27 Dose: 200 mg Documented by: Aspirin (Aspirin 81 Mg) 81 mg PO DAILY [facility] Last Admin: 11/02/20 10:28 Dose: 81 mg Documented by: Atorvastatin Calcium (Atorvastatin 40 Mg Tab) 40 mg PEG/G-TUBE HS@2000 [facility] Last Admin: 11/01/20 21:19 Dose: 40 mg Documented by: Budesonide (Budesonide 1 Mg/2 Ml Nebu) 1 mg INHALATION RT-BID [facility] Last Admin: 11/02/20 20:01 Dose: 1 mg Documented by: Cholestyramine Resin (Cholestyramine (With Sugar) 4 Gm Packet) 4 gm PO QID [facility] Last Admin: 11/02/20 16:43 Dose: 4 gm Documented by: Darbepoetin Alex (Darbepoetin Alex 40 Mcg/0.4 Ml Syringe) 40 mcg SQ Q7D [facility] Last Admin: 10/31/20 12:52 Dose: 40 mcg Documented by: Famotidine (Famotidine 20 Mg Tab) 20 mg PO HS [facility] Last Admin: 11/01/20 21:19 Dose: 20 mg Documented by: Hydrocortisone Sodium Succinate (Hydrocortisone Succinate 100 Mg/2 Ml Vial) 50 mg IV Q6HR [facility] Last Admin: 11/02/20 16:43 Dose: 50 mg Documented by: Hydromorphone HCl (Hydromorphone 1 Mg/Ml 1 Ml Syringe) 1 mg IVP Q3HR PRN PRN Reason: Pain Last Admin: 11/02/20 13:48 Dose: 1 mg Documented by: Lactated Ringer's (Lactated Ringers) 1,000 mls @ 125 mls/hr IV .Q8H [facility] Last Admin: 11/02/20 16:42 Dose: 125 mls/hr Documented by: Piperacillin Sod/Tazobactam (Sod 3.375 gm/ Sodium Chloride) 100 mls @ 25 mls/hr IVPB Q8HR [facility] Last Admin: 11/02/20 16:41 Dose: 25 mls/hr Documented by: Norepinephrine Bitartrate 4 mg (/ Sodium Chloride) 254 mls @ 14.44 mls/hr IV .[id number] [facility]; Protocol Last Admin: 11/02/20 12:00 Dose: 0.02 mcg/kg/min, 5.776 mls/hr Documented by: Parenteral Vitamin Supplement 10 ml/ Zinc/Copper/Manganese/Selenium 1 ml/ Parenteral Electrolytes 20 ml/ Amino Acids/Dextrose 1,031 mls @ 95 mls/hr IV .BY DURATION [facility] Parenteral Electrolytes 20 ml/ (Amino Acids/Dextrose) 1,020 mls @ 95 mls/hr IV .BY DURATION [facility] Fat Emulsion Intravenous 250 (ml/ IV Solution) 250 mls @ 21 mls/hr IV HS [facility] Insulin Aspart (Insulin Aspart (Novolog) 100 Unit/Ml Vial) 0 unit SQ Q6H [facility]; Protocol Last Admin: 11/02/20 18:54 Dose: 1 unit Documented by: Levothyroxine Sodium (Levothyroxine 50 Mcg Tab) 50 mcg PEG/G-TUBE DAILY@0600 [facility] Last Admin: 11/02/20 05:47 Dose: 50 mcg Documented by: Lidocaine (Lidocaine 5% Patch) 1 patch TOPICAL DAILY [facility] Melatonin (Melatonin 3 Mg Tablet) 3 mg PO HS PRN PRN Reason: Insomnia Last Admin: 10/29/20 21:05 Dose: 3 mg Documented by: Methyl Salicylate (Methyl Salicylate/Menthol Cream 5 Oz) 1 applic TOPICAL Q6HR PRN PRN Reason: Pain Last Admin: 10/29/20 06:03 Dose: 1 applic Documented by: Metoprolol Tartrate (Metoprolol Tartrate 25 Mg Tab) 25 mg PO TID [facility] Last Admin: 11/02/20 16:41 Dose: 25 mg Documented by: Midodrine (Midodrine 5 Mg Tab) 10 mg PO Q8HR [facility] Last Admin: 11/02/20 16:41 Dose: 10 mg Documented by: Miscellaneous Information (Potassium Replacement Protocol 1 Each Misc) 1 each MISCELLANE DAILY PRN; Protocol PRN Reason: Per Protocol Miscellaneous Information (Magnesium Replacement Protocol 1 Each Misc) 1 each MISCELLANE DAILY PRN; Protocol PRN Reason: Per Protocol Morphine Sulfate (Morphine Oral Soln 10 Mg/5 Ml Cup) 5 mg PO Q4HR [facility] Last Admin: 11/02/20 16:41 Dose: 5 mg Documented by: Naloxone HCl (Naloxone 0.4 Mg/Ml 1 Ml Vial) 0.2 mg IV Q2M PRN PRN Reason: Opioid Reversal Octreotide Acetate (Octreotide 100 Mcg/Ml Inj) 100 mcg SQ Q8HR [facility] Last Admin: 11/02/20 18:51 Dose: 100 mcg Documented by: Ondansetron HCl (Ondansetron 4 Mg/2 Ml Vial) 4 mg IVP Q6HR PRN PRN Reason: Nausea And Vomiting Quetiapine Fumarate (Quetiapine 25 Mg Tab) 25 mg PO HS [facility] Last Admin: 11/01/20 21:21 Dose: 25 mg Documented by: Saliva Substitute (Dry Mouth Marion 44.3 Marion/44.3 Ml Marion) 1 spray MUCOUS MEM QID PRN PRN Reason: Dry Mouth Last Admin: 11/02/20 18:23 Dose: 1 spray Documented by: Sodium Bicarbonate (Sodium Bicarbonate Tab 650 Mg Tab) 650 mg PO TID [facility] Last Admin: 11/02/20 18:22 Dose: 650 mg Documented by: Sodium Chloride (Sodium Chloride Tab 1 Gm Tab) 1 gm PO DAILY [facility] Tamsulosin HCl (Tamsulosin 0.4 Mg Cap.Er.24h) 0.4 mg PO PC-BRKFST [facility] Last Admin: 11/02/20 10:28 Dose: 0.4 mg Documented by: On examination: VITAL SIGNS: 96.5, 79, 22, 95/66, 93% on trach shield GENERAL APPEARANCE: Laying in bed, tired awake, HEENT:Trach collar with shield EYES: Pupils equal. Conjunctiva normal. NECK: JVD not raised. Mass not palpable. RESPIRATORY: Respiratory effort increased Lungs decreased breath sounds CARDIOVASCULAR: First and second sounds normal. Edema present. ABDOMEN: PEG tube.. Wound VAC. PSYCHIATRY: Alert and oriented x3. Mood and affect tired INVESTIGATIONS, reviewed in the clinical context: November 02: WBC 10.9 hemoglobin 6.2 platelets 246 potassium 5.1 creatinine 2.0 November 01: WBC 10 hemoglobin 8.1 potassium 4.9 creatinine 1.69 October 31: WBC 619.6 hemoglobin 10.5 potassium 4.8 creatinine 1.37 October 30: WBC 7.7 hemoglobin 9.5 potassium 3.8 creatinine 1.4 October 28: WBC 8.4 hemoglobin 9.6 potassium 4.1 creatinine 1.51 October 27: WBC 7.2 hemoglobin 9 platelets 233 potassium 3.7 creatinine 1.69 October 20: White count 13.2 hemoglobin 9.4 platelets 206 potassium 4 creatinine 1.48 White count 7.1 hemoglobin 8.7 platelets 256 potassium 3.8 bicarbonate 20 bun 33 creatinine 3.17 Sputum culture-positive for Staphylococcus aureus MSSA, Klebsiella Pneumoniae Previous labs: White count 16.6 hemoglobin 9.9 platelets 584 bun 100 creatinine 3.18 Coronavirus PCR-not detected Renal ultrasound-normal bilateral renal ultrasound Assessment and plan: -Hypotensive shock -better. remains off norepinephrine IV , on midodrine- patient now back on levo fed -Abdominal wound at surgical incision site, followed by general surgery with local dressing -History of ischemic small bowel with evidence of pneumatosis status post small bowel resection on 07/24/2020 -Ileostomy for intraperitoneal hemorrhage and small bowel ischemia status post exploratory laboratory or short of periportal cavity on 08/02/2020. Ileostomy reversal on October 30. Now with a wound VAC -Coronary artery disease with bypass in July 2020, and Lopressor. Aspirin -Acute hypoxic respiratory failure secondary to pneumonia, continue with oxygen supplementation, currently with the trach collar, 28% -Anemia secondary to chronic kidney disease , follow H&H -Acute kidney injury secondary to ATN secondary to hypotension and hemodynamic instability - Creatinine 1.48 -Chronic kidney disease stage III the baseline creatinine of 1.2-1.5 secondary to nephrosclerosis -Paroxysmal atrial fibrillation with rapid ventricular rate on amiodarone by mouth, Lopressor, converted to sinus rhythm. Patient has been in and out of ra pid A. fib. -Hypernatremia secondary to decreased oral water intake. Receiving free water- improved -Possible aspiration pneumonia, sputum positive for MSSA and Klebsiella pneumoniae., Causing sepsis IV Zosyn-changed to IV cefepime-completed course -Silent aspiration detected by barium study. Nothing by mouth -Stage II sacral pressure ulcer, right heel decub -Hypothyroidism, continue Synthroid -Moderate to severe COPD, on bronchodilators, inhaled steroids -Diabetes mellitus type 2, follow Accu-Cheks -Essential hypertension -Hyperlipidemia, continue Lipitor -BPH on Flomax -Enteral tube feeding at 90 mL an hour before surgery. 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 Ileostomy was reversed on October 30 -Acute GI blood loss anemia, symptomatic hypotension. Patient is receiving second unit of blood this afternoon. -Started on TPN and lipids -DO NOT RESUSCITATE On levo fed. Blood transfusion. TPN lipids. Prognosis guarded
[2020-11-02] MEDS: ATORVASTATIN 40 MG TAB PEG/G-TUBE SCH (20:56)
[2020-11-02] MEDS: QUEtiapine 25 MG TAB PO SCH (20:56)
[2020-11-02] MEDS: FAMOTIDINE 20 MG TAB PO SCH (20:56)
[2020-11-02 20:59] LABS: Anisocytosis Slight; Basophils % (A) 0 %; Eosinophils % (A) 0 %; HCT 31.1 % (39.0-53.0); Hypochromasia Marked; Lymphocytes # (A) 0.3 k/uL (1.0-4.8); Lymphocytes % (A) 2 %; MCH 29.5 pg (25.0-35.0); MCHC 30.8 g/dL (31.0-37.0); MCV 95.9 fL (80.0-100.0); Macrocytosis Slight; Mean Platelet Volume 7.4; Monocytes # (A) 0.6 k/uL (0-1.0); Monocytes % (A) 5 %; Neutrophils # (A) 12.5 k/uL (1.3-7.7); Neutrophils % (A) 92 %; Platelet Count 214 k/uL (150-450); Poikilocytosis Slight; RBC 3.24 m/uL (4.30-5.90); RDW 16.5 % (11.5-15.5); WBC 13.5 k/uL (3.8-10.6)
[2020-11-02] MEDS ORDERED: FAT EMULSION 20% 250 ML in EMPTY BAG 1 BAG IV SCH (21:00)
[2020-11-02 21:10] LABS: HGB 9.6 gm/dL (13.0-17.5)
[2020-11-03] MEDS: 1: MVI, ADULT NO.4 WITH VIT K 10 ML, TRACE (CONC-1ML/DOSE) 1 ML, PARENTERAL ELECTROLYTES IV SCH ×12 (00:05→17:03)
[2020-11-03 00:50] LABS: Glucose,Whole Blood 211 mg/dL (75-99)
[2020-11-03] MEDS: LIDOCAINE 5% PATCH TOPICAL SCH ×2 (00:57→12:23)
[2020-11-03] MEDS: METOPROLOL TARTRATE 25 MG TAB PO SCH ×2 (00:58→10:36)
[2020-11-03] MEDS: CHOLESTYRAMINE (WITH SUGAR) 4 GM PACKET PO SCH ×5 (00:58→21:14)
[2020-11-03] MEDS: MIDODRINE 5 MG TAB PO SCH ×2 (00:58→10:20)
[2020-11-03] MEDS: MORPHINE ORAL SOLN 10 MG/5 ML CUP PO SCH ×4 (00:58→12:23)
[2020-11-03] MEDS: INSULIN ASPART (NovoLOG) 100 UNIT/ML VIAL SQ SCH ×4 (00:58→21:14)
[2020-11-03] MEDS: HYDROCORTISONE SUCCINATE 100 MG/2 ML VIAL IV SCH ×5 (00:59→23:16)
[2020-11-03] MEDS: PIPERACILLIN-TAZOBACTAM 3.375 GM in SODIUM CHLORIDE 0.9% 100 ML IVPB SCH ×4 (01:04→23:16)
[2020-11-03] MEDS: LACTATED RINGERS 1,000 ML IV SCH ×4 (01:17→23:17)
[2020-11-03] MEDS: OCTREOTIDE 100 MCG/ML INJ SQ SCH ×4 (01:22→23:16)
[2020-11-03] MEDS: SODIUM BICARBONATE TAB 650 MG TAB PO SCH ×4 (01:22→21:16)
[2020-11-03] MEDS ORDERED: AMIODARONE 200 MG TAB PO STA (01:47)
[2020-11-03] MEDS ORDERED: METOPROLOL TARTRATE 5 MG/5 ML VIAL IVP ONE (01:48)
--- NOTE | 2020-11-03 03:46 | XR ---
EXAM: XR Chest, 1 View CLINICAL HISTORY: ITS.REASON XR Reason: Increased work of breathing TECHNIQUE: Frontal view of the chest. COMPARISON: 11/02/20. FINDINGS: Persistent bilateral lung opacities, slightly increased compared to prior. Stable cardiomediastinal silhouette. Additional findings similar to prior. IMPRESSION: Bilateral lung opacities, likely representing increasing pleural effusions with infiltrates/atelectasis or edema.
[2020-11-03] MEDS: LEVOTHYROXINE 50 MCG TAB PEG/G-TUBE SCH (05:35)
[2020-11-03 05:38] LABS: Glucose,Whole Blood 312 mg/dL (75-99)
[2020-11-03 06:04] LABS: ABG Base Excess -8.2 mmol/L; ABG HCO3 20 mmol/L (21-25); ABG Oxygen Saturation 96.8 % (94-97); ABG PCO2 56 mmHg (35-45); ABG PO2 91 mmHg (83-108); ABG TCO2 22 mmol/L (19-24); Allen Test Performed? Yes
[2020-11-03 06:09] LABS: ABG PH 7.17 (7.35-7.45)
[2020-11-03 06:41] LABS: Calcium 7.8 mg/dL (8.4-10.2); Magnesium 1.9 mg/dL (1.6-2.3); Phosphorus 5.6 mg/dL (2.5-4.5)
[2020-11-03 06:50] LABS: Potassium 5.4 mmol/L (3.5-5.1)
[2020-11-03] MEDS ORDERED: DEXTROSE 5% IN WATER 100 ML with AMIODARONE 150 MG IV ONE (08:03)
[2020-11-03] MEDS ORDERED: SODIUM CHLORIDE 0.45% 1,000 ML with SODIUM BICARB (1 MEQ/ML) 50 ML IV SCH ×2 (08:15)
[2020-11-03] MEDS: IPRATROPIUM-ALBUTEROL 3 ML NEB INHALATION SCH ×4 (08:29→21:00)
[2020-11-03] MEDS: BUDESONIDE 1 MG/2 ML NEBU INHALATION SCH (08:29)
[2020-11-03] MEDS ORDERED: CISATRACURIUM 2 MG/ML 5 ML VIAL IV ONE (08:50)
[2020-11-03] MEDS ORDERED: SODIUM CHLORIDE TAB 1 GM TAB PO SCH (09:00)
--- NOTE | 2020-11-03 09:04 | PN ---
PROGRESS NOTE Mr. Tinoco went into atrial fib last night with a moderately rapid ventricular rate. He is on a fairly higher dose of Levophed for blood pressure support. Urine output is minimal. Overall prognosis looks poor for this patient. I am recommending that we initiate him back on IV amiodarone with a bolus and drip and given the acidotic picture, I am recommending that we infuse 0.45 saline with 1 amp of bicarb. Overall prognosis appears to be poor. PHYSICAL EXAMINATION: Physical exam revealed a pressure of 108/70, pulse rate is about 130 irregular. JVD 1 cm. No carotid bruit. S1, S2 heard normally with tachycardia, irregularity in rhythm, short systolic murmur. Lungs reveal diminished air entry. Abdominal exam deferred. The rest of physical examination is unchanged. RECOMMENDATIONS: I am recommending IV amiodarone with a bolus and drip and also to give a half-normal saline with bicarb. MMODL / IJN: [id number] /
[2020-11-03] MEDS: AMIODARONE 450 MG in DEXTROSE 5% IN WATER 250 ML IV SCH ×2 (09:30)
[2020-11-03] MEDS ORDERED: HYDROmorphone 1 MG/ML 1 ML SYRINGE IVP PRN (09:53)
[2020-11-03 09:54] LABS: ABG Base Excess -9.3 mmol/L; ABG HCO3 19 mmol/L (21-25); ABG PCO2 52 mmHg (35-45); ABG PO2 269 mmHg (83-108); ABG TCO2 21 mmol/L (19-24)
[2020-11-03 09:55] LABS: ABG PH 7.18 (7.35-7.45)
--- NOTE | 2020-11-03 09:55 | XR ---
EXAMINATION TYPE: XR chest 1V confirm line [facility] DATE OF EXAM: 11/03/2020 CLINICAL HISTORY: Central line placement. TECHNIQUE: Single AP portable supine view of the chest is obtained. COMPARISON: Chest x-ray from earlier today FINDINGS: New Left subclavian central venous catheter terminates in SVC. Background emphysematous ch renea with diminished lung markings and scarring left lung apex. No definitive new left apical pneumot horax. Stable right-sided PICC line. Stable tracheostomy tube. Overlying sternal wires and mediastinal clips along with left atrial appendage clip are all redemonstrated. Bilateral mid to lower lung opacities remain present. Cardiac silhouette size stable and upper limits of normal. Multilevel spurring in the spine. IMPRESSION: New left subclavian central venous catheter terminates in SVC. No pneumothorax. Persistent mid to lower lung acute infiltrate and/or atelectasis with small bilateral pleural effusio ns on background chronic changes, no significant change from prior.
[2020-11-03] MEDS: NOREPINEPHRINE 32 MG in SODIUM CHLORIDE 0.9% 218 ML IV SCH (10:02)
[2020-11-03] MEDS ORDERED: SODIUM BICARB 8.4% 50 ML SYR (1 MEQ/ML) IV STA (10:07)
[2020-11-03 10:18] VITALS: BMI 27.1
[2020-11-03] MEDS: TAMSULOSIN 0.4 MG CAP.ER.24H PO SCH (10:20)
[2020-11-03] MEDS: NOREPINEPHRINE 4 MG in SODIUM CHLORIDE 0.9% 250 ML IV SCH (10:25)
[2020-11-03] MEDS: ASPIRIN 81 MG PO SCH (10:35)
--- NOTE | 2020-11-03 10:39 | PCN ---
PROCEDURE NOTE PROCEDURE: Right radial art line. OPERATORS: Dr. Meyers, Dr. Kendrick, Dr. Marin. Reason for the procedure was frequent blood draws and blood gas monitoring. ARTERIAL LINE PLACEMENT: Indications: Hemodynamic monitoring. A time-out was completed verifying correct patient, procedure, site, positioning, and implant(s) or special equipment if applicable. Bk's test was performed to ensure adequate perfusion. The patient's right wrist was prepped and draped in sterile fashion. 1% Lidocaine was used to anesthetize the area. An 18G Arrow arterial line was introduced into the right radial artery. The catheter was threaded over the guide wire and the needle was removed with appropriate pulsatile blood return. Blood loss was minimal. The catheter was then sutured in place to the skin and a sterile dressing applied. Perfusion to the extremity distal to the point of catheter insertion was checked and found to be adequate. The patient tolerated the procedure well and there were no complications. Informed consent universal timeout. There was no immediate complication. There was good waveform. The catheter was sutured in place. Sterile dressing was applied by the nurse. PROCEDURE: Left subclavian triple-lumen catheter. Reason for the procedure was administration of fluids and pressors. TRIPLE LUMEN CATHETER PLACEMENT: Indication: Hemodynamic monitoring/Intravenous access. A time-out was completed verifying correct patient, procedure, site, positioning, and implant(s) or special equipment if applicable. The patient was placed in a dependent position appropriate for triple lumen catheter placement based on the vein to be cannulated. The patient's left shoulder was prepped and draped in sterile fashion. 1% Lidocaine was used to anesthetize the surrounding skin area. A triple lumen 9F Cordis catheter was introduced into the left subclavian vein using Seldinger technique. The catheter was threaded smoothly over the guide wire and appropriate blood return was obtained. Each lumen of the catheter was evacuated of air and flushed with sterile saline. The catheter was then sutured in place to the skin and a sterile dressing applied. Perfusion to the extremity distal to the point of catheter insertion was checked and found to be adequate. There was good blood return from all 3 ports. The patient tolerated the procedure well. The catheter was sutured in place. The catheter was seen in the right atrium. A sterile dressing was applied by the nurse. There was no immediate complication. A chest x-ray did show proper placement without a complication. Again, the patient tolerated the procedure very well. MMEDITA / STACIN: [id number] /
[2020-11-03] MEDS ORDERED: DILTIAZEM DRIP BOLUS FROM BAG 1 MG SOLN IV ONE (10:43)
[2020-11-03] MEDS: DILTIAZEM 125 MG in SODIUM CHLORIDE 0.9% 100 ML IV SCH (11:01)
--- NOTE | 2020-11-03 11:26 | P.PN ---
Subjective Progress Note Date: 11/03/20 Principal diagnosis: Acute on chronic hypoxic respiratory failure secondary to left lower lobe pneumonia and sepsis This is a 80-year-old white male familiar to my service, in July 2020, patient underwent elective coronary artery bypass grafting. He had a very complicated postoperative course, patient required multiple abdominal surgeries, multiple intubations, extubations, and the intubations, patient was a failure to wean, and he had multiple abdominal surgeries during his stay. Patient underwent tracheostomy, PEG tube placement, and we were able to transfer the pa maty to an extended care facility. He was at the extended care facility until about a week ago, his tracheostomy was capped, and he was transferred to [facility] in [facility]. Patient has been noticing increased cough, increased shortness of breath, and significant purulent secretions from the tracheostomy tube when uncapped. O2 saturation was dipping down into the 50s and in the ER he had a saturation of 86% on 15 L high flow nasal cannula. Patient was also noted to have leukocytosis, hemoglobin was low, his troponin was slightly elevated, blood pressure was noted to be marginally low, patient was admitted initially to the cardiac floor, however supposedly he was noted to have blood pressure in the 70s systolic. Patient did receive multiple fluid boluses in the ER over 3 L were given, and we were notified about the patient on the floor having low blood pressure, I recommended transferred to the ICU planning to start the patient on norepinephrine. However over the last 12 hours in the ICU, his blood pressure has been stable patient did not require placement on any pressors. His beta blockers had been on hold because of low blood pressure, and he is maintained on amiodarone. His pro-calcitonin level was noted to be 2.60. And his chest x-ray showed left lower lobe atelectasis, suspect left lower lobe pneumonia. And he had small pleural effusions noted more so than right. Going back to his previous hospital admission, patient did have left lower lobe pneumonia and he did have left pleural effusion requiring thoracentesis once or twice. Cultures previously from the sputum were positive for Pseudomonas fluorescence/putida, sensitive to Zosyn and Levaquin and meropenem. Also sensitive to cefepime. Considering the patient's presentation with hypotension, shortness of breath, cough, abnormal chest x-ray, hypoxia, and considering his recent clinical history, we were asked to see him on consultation Patient was reevaluated today on 10/04/2020, patient remains in the ICU, he is on trach collar a 55%, patient went into atrial fibrillation with RVR yesterday, and he went on amiodarone at 1 mg/m, he also received 1 unit of packed RBCs for hemoglobin of 6.7, patient converted to sinus rhythm. Remains in sinus rhythm, patient is receiving tube feeds/Nepro at 65/65. He is also receiving free water. Chest x-ray is showing minimal improvement in the left lower lobe consolidation, clinically the patient is feeling better, he is empirically on antibiotics for healthcare acquired pneumonia/Zosyn. Previous sputum cultures were positive for Pseudomonas, hence his Zosyn was chosen as the drug of choice. CBC today showed WBC 7.2 hemoglobin 6.7, hence a unit of blood was given. Electrolytes showed low sodium but improving today is 148 from 150 to yesterday. BUN is 108 creatinine 3.4 to about the same as yesterday. Reevaluated today on 10/05/2020, patient remains in the ICU, remains on 55% trach collar. Off norepinephrine, IV fluids at KVO, tolerating enteral feeding via PEG tube, patient continues to have significant amount of tracheal secretions, he is now on Zosyn and vancomycin, as well as Zyvox. His cultures from the sputum are showing MSSA, hence we will discontinue vancomycin, keep him on Zosyn, and infectious disease to address his Zyvox. Patient may not even require Zyvox considering the culture is positive for MSSA. Chest x-ray is showing bilateral pleural effusions/small, renal functioning is slightly improved over the last 24 hours. Patient was switched to oral amiodarone, and he seems to be doing quite well, in sinus rhythm. Reevaluated today on 10/06/2020, patient remains in the ICU, remains on trach collar at 28%, sputum came back positive for Klebsiella and MSSA. Patient is on Zosyn and Zyvox. Remains on a small dose of norepinephrine at 0.01 mcg/kg/m, remains on enteral feeding/Nepro at 65 ML per hour, also receiving Questran. Patient continues to have significant output from his ileostomy. Patient is feeling better overall compared to how he felt on presentation. CBC today is relatively normal WBC count is 7.1 hemoglobin is 8.7, electrolytes are normal BUN is 93 creatinine is 3.17, improving over the last couple of days. Blood cultures remain negative. Again his sputum cultures are positive for MSSA and Klebsiella pneumonia. Reevaluated today on 10/07/2020, patient remains in the ICU, remains on trach collar at 28%, receiving antibiotics for his Klebsiella and MSSA pneumonia. Patient is only on Zosyn, and his Zyvox was discontinued since it was initially started by infectious disease for possible MRSA. Patient is requiring intermittently small doses of norepinephrine, clinically however the patient is much better compared to how he felt when he came in. He is in no distress, this morning he is off norepinephrine, but he didn't require norepinephrine last night, hence I will not transfer the patient out of the ICU yet. Chest x-ray continues to show by basilar atelectasis, possible left lower lobe consolidation which is chronic. Secretions from the tracheostomy are less and less. Renal profile is improving, creatinine is down to 2.9. CBC is normal. Electrolytes are normal. On 10/08/2020 the patient is being seen in follow-up in the intensive unit. His , comfortable and currently is on a trach collar with an FiO2 of 28%. The chest x-ray shows small bilateral pleural effusions and there is adequate expansion of both lungs and a orotracheal tube is in a good location. Note that he had MSSA and Klebsiella in his sputum and patient is currently on IV antibiotics and he is receiving IV Zosyn. Patient continues to have copious amount of secretions through his tracheostomy tube and the patient has a #[address] tracheostomy tube in place and he is requiring suctioning every 2 hours at least. He still has a lot of rhonchi He is currently off pressors. He is in normal sinus rhythm. He has also PEG tube for enteral feeding and nutritional support. PEG tube is in place and the patient is on Nepro at the rate of 75 mL an hour. He continues to have output through his ileostomy bag. The patient has significant amount of output through his ileostomy was in the order of every 12 hours. No abdominal distention. No signs of any respiratory distress. The creatinine is improving and is currently down to 2.5 and the patient's hemoglobin is at 8.4. No fever. No other issues overnight. Villafana cath is also in place. He is able to communicate. However he is still profoundly weak/in lower extremities. He is able to raise his arms against gravity. On 10/09/2020 patient seen in follow-up in the intensive care unit. Patient is awake and alert, is following commands, moving all 4 extremities, no signs of any respiratory distress, he is breathing comfortably, on 28% trach collar. His pulse ox is 98%. Still having some secretions from his tracheostomy, related he is on Zosyn for antibiotic coverage. Remains on nebulized bronchodilators, hemodynamically patient has been stable. No requiring any vasopressor support for last 48 hours. No acute events overnight. His sputum cultures were positive for MSSA and Klebsiella pneumonia. Today's labs have been reviewed, normal white count at 8.5, hemoglobin is 9.0, sodium is 137, potassium is 3.7, chloride is 110, B1 is 67, creatinine is 2.18. Patient has been nothing by mouth and has been receiving nutrition in the form of Nepro at 65 with a goal of 65. Patient has had significant diarrhea, liquid yellow output from his ileostomy. No complaints of chest pain. He is in sinus mechanism with a controlled rate. Chest x-ray shows basilar infiltrates and atelectasis with small effusions. On 10/10/2020 patient seen in follow-up in the intensive care unit. He is awake and alert, oriented 3, his calm and cooperative, he denies any acute distress, he still has significant amount of secretions that are being suctioned from the tracheostomy tube, he remains on 20% trach collar. He remains on antibiotics, his sputum cultures were positive for MSSA and Klebsiella pneumonia, he is on Zosyn, he has had no fever or chills. Lung sounds reveal minimal rhonchi, less congested and wheezy on today's exam compared a few days ago. Patient is tolerating tube feedings, he remains strict nothing by mouth, he is on Nepro at a rate of 65 ML per hour with a goal of 65 with 125 ML free water flushes every 3 hours. Abdomen is soft, ileostomy is still producing copious amount of liquid yellow diarrhea, which will be sent for C. diff. There has been a total of 2.5 L in stool output in the last 24 hours. Today's labs have been reviewed, white blood cell count is 8.9, hemoglobin is 8.9, CO2 is 18, sodium is 138, potassium is 3.9, chloride is 110, renal profile is improving despite the diarrhea, with BUN of 63, creatinine is 1.94. Patient is working with physical therapy and yesterday he apparently was up in the chair with assistance, tolerated activity well. On 10/11/2020 patient seen in follow-up in intensive care unit, she remains on 28% trach collar, the pulse ox of 97%, vital signs have been stable, his been afebrile, he did have a run of A. fib with RVR this morning and was restarted on amiodarone drip and was given 150 mg bolus of amiodarone. He is currently back in sinus mechanism with a controlled rate, receiving hydration with LR at 75 ML per hour, he continues to have large volume diarrhea out of his ileostomy, he had to 3.3 L in stool output in last 24 hours, C. diff was negative. tube feedings have been switched to vital AF currently running at 75 ML per hour, patient is getting free water flushes of 125 ML every 3 hours. Yesterday we placed him on lactated Ringer's at rate of 75 ML per hour, he is receiving or sodium bicarbonate tablets, his bicarbonate concentration at today's labs has improved and is up to 23. The renal profile slightly improved. Continues on Zosyn for MSSA and Klebsiella pneumonia in sputum cultures, blood cultures have been negative, patient has been afebrile, blood pressure stable, the patient continues on midodrine. Patient is awake and alert, following commands, responding appropriately, appears tired on today's exam. Denies any acute distress, his been working with physical therapy, he stood at the bedside, he is too weak to walk. Abdomen is soft, mid abdominal incision is covered with a dressing. On 10/12/2020 patient seen in follow-up in the intensive care unit. Patient is up in the recliner, breathing comfortably, she is on 20% trach collar, lung sounds are less congested and rhonchorous on today's exam. He is awake and oriented 3, denies any distress, he is currently on lactated Ringer's at a rate of 75 ML per hour, no recurrence of A. fib RVR overnight, his amiodarone is infusing at 0.5 mg/m and he will be transitioned to oral amiodarone today per cardiology, he remained in sinus rhythm. Vital signs are stable. He is on tube feedings of vital AF a rate of 90 with a goal of 90 with 125 ML free water flushes every 3 hours. His diarrhea output has decreased some, patient had 2 L in the liquid ostomy is stool output in the last 24 hours, he is on Lomotil when necessary. No abdominal pain. no nausea or vomiting no nausea or vomiting. The secretions out of the tracheostomy tube have decreased. Patient has been nothing by mouth, she would like to have a swallow evaluation to be evaluated for oral feedings. Today's chest x-ray has been reviewed showing left lower lobe infiltrate and/or pleural effusion, and improving aeration in the right lower lobe. Today's labs have been reviewed, showing white blood cell count of 12.4, hemoglobin of 9.3, electrolytes within normal limits, renal profile shows slight improvement in creatinine, down to 1.6 today. On 10/31/2020 patient seen in follow-up in the intensive care unit, yesterday patient underwent reversal of ileostomy, lysis of adhesions, small bowel resection, repair of incisional hernia partial omentectomy and placement of a wound VAC. This morning patient is back on 20% trach collar, he is breathing comfortably, his pulse oximetry 97%, he is awake and alert, oriented 3, he is able to verbally respond occluding his tracheostomy, denies any significant cough or congestion, has had no fever or chills, blood pressures are slightly low this morning, with systolic of 87/53, his IV fluid rate will be increased to 125, in addition patient had a run of A. fib with RVR last night and was started on amiodarone drip currently running at 0.5 mg/m per cardiology and is currently back to sinus rhythm with a controlled rate. He remains nothing by mouth, his abdominal incision has a wound VAC placed with black foam, and there is some moderate amount of thin serosanguineous output in the wound VAC canister. NAIN drain with minimal serosanguineous output, PEG tube is in place, and the tube feedings are on hold, no bowel sounds he is, and patient denies passing any gas yet. Lung sounds are clear, diminished at the bases, patient prefers to lie flat in bed related to his coccygeal sacral wounds and pain from that. Wound treatments and dressing changes are per ID service recommendations. Villafana catheter is in place patient is producing urine output in the order of 24-30 ML per hour. Today's labs have been reviewed, showing white blood cell count of 19.6, hemoglobin 10.5, sodium is 133, CO2 was 20, BUN was 50, creatinine is 1.3, potassium is 4.8. Patient is on Zosyn for empiric antibiotic coverage. On 11/01/2020 patient seen in follow-up in intensive care unit, he is awake, in no acute distress, breathing comfortably, he is currently on 40% trach collar, his pulse ox is 96%, no fever or chills, did have some low blood pressures overnight, was systolic in the 70s. Yesterday we gave the patient additional fluids. He has been nothing by mouth, history feedings have been on hold, he is postoperative day #2 status post reversal of ileostomy. Today's chest x-ray has been reviewed showing left greater than right pleural effusions and bibasilar atelectasis. Not significantly changed from previous chest x-ray. Today's labs have been reviewed, showing medically improved leukocytosis, with Elocon is within normal limits today, down to 10 from 19.6 on yesterday's labs, hemoglobin is 8.1, sodium is 132, the rest of the electrolytes are within normal limits, BUN is 47, creatinine is 1.69. Remains on antibiotics for MSSA and Klebsiella pneumonia in the sputum, follow up on sputum culture was just positive for Radha albicans, blood and urine cultures show no growth. She is in sinus mechanism, he has been transitioned to oral amiodarone 400 mg twice a day per cardiology, amiodarone drip has been discontinued, laxative Ringer's is currently infusing at 125 ML per hour, and Levaquin and is infusing at 0.02 mics per kilo per minute or 2.5 mics per minute, patient did receive another liter bolus this morning per surgical services. He is on octreotide and Lomotil. Has not had a bowel movement yet. Abdominal incisions clean dry and intact. On 11/02/2020 patient seen in follow-up in intensive care unit, today is postoperative day #3 status post reversal of ileostomy, he is resting comfortably in bed, he states he is tired today, did not sleep well last night. Appears to be in no acute distress, he remains on 40% trach collar with pulse ox of 90-93%, yesterday patient received additional IV fluids, his IV is lactated Ringer's at a rate of 125 ML per hour, he remains on TPN at 30 ML per hour, and patient is on Levaquin at 3.5 mics per minute. History feedings remain on hold, and patient remains nothing by mouth. He has not passed any stool, his bowel sounds are very hypoactive but abdomen is soft, mid abdominal incision wound VAC in place. Sputum culture has been sent, yellow cook phlegm is being suctioned from his tracheostomy. Urine culture has shown no growth, currently on Zosyn for antibiotic coverage, he is receiving oral bicarbonate as well, 6.2, patient received 1 unit of packed red blood cells. Renal profile has worsened on today's labs, BUN is 49 creatinine is 2.0 On 11/03/2020 patient seen in follow-up in the intensive care unit, yesterday in the afternoon patient developed worsening hypoxemia, hypotension, he started passing bloody diarrhea per his rectum, he was given a total of 2 units of blood for a hemoglobin of 6.2, this morning's hemoglobin is up to 9.6, no further bleeding, however his hypoxia continued to progress, patient was requiring 100% FiO2, his repeat chest x-ray today showed stable findings of bibasilar infiltrates with small bilateral pleural effusions. Patient was placed on pressure support of 10 and CPAP of 5 overnight, however his tracheostomy is a non-cuffed tracheostomy, and this morning patient is quite tachypneic, he appears to be air hungry, he is losing quite a bit of volume around the trach, and a blood gas showed pO2 of 91, pCO2 of 56 and pH of 7.17. At that point tracheostomy was switched to a coughed trach, the balloon was inflated, patient was placed on assist-control mode of ventilation, with a rate of 24, tidal volume is 450, FiO2 of 70% and PEEP of 5, patient was sedated, and was lined with placement of right radial arterial line placement, and left subclavian central line placement. Currently his Levophed is running at 4.5 mics per minute, lipids are running at 21 mL per hour, TPN is at 95 ML per hour. Overnight patient's also went into A. fib with RVR and currently rate is ranging from 130 to 150. After placement on assist-control mode of ventilation patient's oxygenation has improved, and his follow-up blood gases showed pO2 of 269, pCO2 of 52, and pH of 7.18. Chest x-ray showed persistent mid to lower lung acute infiltrates and/or atelectasis with small bilateral pleural effusions. he was also started on Cardizem 5 mg per hour every control, and amiodarone as her 0.5 mg/m. Remains on Zosyn for empiric coverage, his last sputum culture from 11/14/2020 was positive just for Radha albicans, repeat sputum culture has been sent and pending at this time, and blood cultures have shown no growth. Mid abdominal incision wound VAC appears to have increased drainage and bleeding from the wound, and wound care services are supposed to change the dressing today, but abdomen is soft, nontender Objective - Vital Signs Vital signs: Vital Signs Temp 97.3 F L 11/03/20 04:00 Pulse 131 H 11/03/20 08:45 Resp 33 H 11/03/20 08:45 BP 104/74 11/03/20 07:00 Pulse Ox 97 11/03/20 06:00 Intake & Output 11/02/20 11/03/20 11/03/20 18:59 06:59 18:59 Intake Total 3205.5 2646.121 336.969 Output Total 700 523 18 Balance 2505.5 2123.121 318.969 Weight 90.6 kg 90.6 kg Intake: IV 1922 2559 241 Fat Emulsion 20% 250 ml 42 189 21 In Empty Bag 1 bag @ 21 mls/hr IV DAILY WADE Rx#: [id number] Lactated Ringers 1,000 ml 1500 1500 125 @ 125 mls/hr IV .Q8H WADE Rx#:[id number] MVI (TPN) 720 95 Magnesium Sulfate-D5w Pmx 100 1 gm In Dextrose/Water 1 100ml.bag @ 100 mls/hr IVPB Q1H WADE Rx#: [id number] Mvi, Adult No.4 with Vit 180 K 10 ml Trace (Conc-1Ml/ Dose) 1 ml In Amino Acid 5%-D20w+Lytes*E* 1,000 ml @ 30 mls/hr IV .Q24H WADE Rx#:[id number] Piperacillin-Tazobactam 3 100 150 .375 gm In Sodium Chloride 0.9% 100 ml @ 25 mls/hr IVPB Q8HR WADE Rx# :[id number] Intake, IV Titration 663.5 87.121 95.969 Amount Mvi, Adult No.4 with Vit 409.5 K 10 ml Trace (Conc-1Ml/ Dose) 1 ml In Amino Acid 5%-D20w+Lytes*E* 1,000 ml @ 30 mls/hr IV .Q24H WADE Rx#:[id number] Norepinephrine 4 mg In 254 87.121 95.063 Sodium Chloride 0.9% 250 ml @ 0.05 MCG/KG/MIN 14. 44 mls/hr IV .[id number] WADE Rx#:[id number] propofoL 1,000 mg In 0.906 Empty Bag 1 bag @ Titrate IV .Q0M WADE Rx#: [id number] Blood Product 620 Rc As-1 Unit 310 [id number] Rc As-1 Unit 310 [id number] Output: Drainage 75 325 Abdomen 75 325 Urine 325 198 18 Stool 300 Other: Voiding Method Indwelling Catheter Indwelling Catheter - Exam GENERAL EXAM: Sedated, trached to the ventilator, currently has been switched to assist control mode of ventilation from pressure-support mode of ventilation 80-year-old white male on the 70% trach collar on 95%, comfortable in no apparent distress. HEAD: Normocephalic/atraumatic. EYES: Normal reaction of pupils, equal size. Conjunctiva pink, sclera white. NOSE: Clear with pink turbinates. THROAT: No erythema or exudates. NECK: No masses, no JVD, no thyroid enlargement, no adenopathy. Midline tracheostomy in place, CHEST: No chest wall deformity. Symmetrical expansion. Left subclavian central line catheter was just placed LUNGS: Equal air entry with no crackles, wheeze, rhonchi or dullness. CVS: Regular rate and rhythm, normal S1 and S2, no gallops, no murmurs, no rubs ABDOMEN: Soft, nontender. No hepatosplenomegaly, normal bowel sounds, no guarding or rigidity. Midabdominal incision has a wound VAC with black foam in his abdominal incision, with a moderate amount of thin serosanguineous output in the canister, 1 NAIN drain on the right, PEG tube is on the left upper quadrant EXTREMITIES: No clubbing, no edema, no cyanosis, 2+ pulses and upper and lower extremities. MUSCULOSKELETAL: Muscle strength and tone normal. SPINE: No scoliosis or deformity SKIN: No rashes, he has a stage III sacral decubitus on his sacrum, and left heel wound CENTRAL NERVOUS SYSTEM: Sedated, trached to the vent No focal deficits, tone is normal in all 4 extremities. - Labs CBC & Chem 7: 11/02/20 20:06 11/03/20 05:12 Labs: Abnormal Lab Results - Last 24 Hours (Table) 11/02/20 11/02/20 11/02/20 Range/Units 06:10 11:49 18:41 WBC (3.8-10.6) k/uL RBC (4.30-5.90) m/uL Hgb (13.0-17.5) gm/dL Hct (39.0-53.0) % MCHC (31.0-37.0) g/dL RDW (11.5-15.5) % Neutrophils # (1.3-7.7) k/uL Lymphocytes # (1.0-4.8) k/uL ABG pH (7.35-7.45) ABG pCO2 (35-45) mmHg ABG pO2 (83-108) mmHg ABG HCO3 (21-25) mmol/L ABG O2 Saturation (94-97) % Sodium (137-145) mmol/L Potassium (3.5-5.1) mmol/L Carbon Dioxide (22-30) mmol/L BUN (9-20) mg/dL Creatinine (0.66-1.25) mg/dL Glucose (74-99) mg/dL POC Glucose (mg/dL) 163 H 161 H (75-99) mg/dL Calcium (8.4-10.2) mg/dL Phosphorus (2.5-4.5) mg/dL Crossmatch See Detail 11/02/20 11/03/20 11/03/20 Range/Units 20:06 00:48 05:12 WBC 13.5 H (3.8-10.6) k/uL RBC 3.24 L (4.30-5.90) m/uL Hgb 9.6 L D (13.0-17.5) gm/dL Hct 31.1 L (39.0-53.0) % MCHC 30.8 L (31.0-37.0) g/dL RDW 16.5 H (11.5-15.5) % Neutrophils # 12.5 H (1.3-7.7) k/uL Lymphocytes # 0.3 L (1.0-4.8) k/uL ABG pH (7.35-7.45) ABG pCO2 (35-45) mmHg ABG pO2 (83-108) mmHg ABG HCO3 (21-25) mmol/L ABG O2 Saturation (94-97) % Sodium 133 L (137-145) mmol/L Potassium 5.4 H (3.5-5.1) mmol/L Carbon Dioxide 14 L (22-30) mmol/L BUN 52 H (9-20) mg/dL Creatinine 2.12 H (0.66-1.25) mg/dL Glucose 275 H (74-99) mg/dL POC Glucose (mg/dL) 211 H (75-99) mg/dL Calcium 7.8 L (8.4-10.2) mg/dL Phosphorus 5.6 H (2.5-4.5) mg/dL Crossmatch 11/03/20 11/03/20 11/03/20 Range/Units 05:36 05:46 09:52 WBC (3.8-10.6) k/uL RBC (4.30-5.90) m/uL Hgb (13.0-17.5) gm/dL Hct (39.0-53.0) % MCHC (31.0-37.0) g/dL RDW (11.5-15.5) % Neutrophils # (1.3-7.7) k/uL Lymphocytes # (1.0-4.8) k/uL ABG pH 7.17 L* 7.18 L* (7.35-7.45) ABG pCO2 56 H 52 H (35-45) mmHg ABG pO2 269 H (83-108) mmHg ABG HCO3 20 L 19 L (21-25) mmol/L ABG O2 Saturation 100.0 H (94-97) % Sodium (137-145) mmol/L Potassium (3.5-5.1) mmol/L Carbon Dioxide (22-30) mmol/L BUN (9-20) mg/dL Creatinine (0.66-1.25) mg/dL Glucose (74-99) mg/dL POC Glucose (mg/dL) 312 H (75-99) mg/dL Calcium (8.4-10.2) mg/dL Phosphorus (2.5-4.5) mg/dL Crossmatch Microbiology - Last 24 Hours (Table) 10/31/20 08:52 Blood Culture - Preliminary Blood No Growth after 72 hours 11/01/20 22:00 Gram Stain - Preliminary Sputum Sputum Culture - Preliminary Assessment and Plan Plan: Assessment: #1. Acute on chronic hypoxic respiratory failure secondary to hypotension, possibly related to acute blood loss anemia related to recent history of the ostomy reversal, chronic anemia, possibility of sepsis is not excluded, patient was placed back on assist control mode of ventilation today on 11/03/2020 #2. High output ileostomy, status post reversal of ileostomy, lysis of adhesions, repair of incisional hernia repair, partial omentectomy, and wound VAC placement, postoperative day #3, surgery was on 10/30/2020 #3. Hypotension, related to intravascular volume depletion, and acute on chronic GI blood loss anemia, sepsis is not excluded #4. Bilateral lower lobe pneumonia with sepsis related to MSSA and Klebsiella pneumonia #5. Acute on chronic hypoxic respirator failure secondary to pneumonia and COPD, patient is on 28% trach collar for history of prolonged mechanical ventilator support after cardiac surgery #6. Acute on chronic kidney injury secondary to sepsis, ATN, has slightly worsened #7. Triple-vessel coronary artery disease on 07/18/2020 with multiple postoperative complications and placement of tracheostomy and PEG tube [facility] where she was weaned off the ventilator support #8. Stage III equal decubitus ulcer and stage II on his left heel #9. Benign essential hypertension #10. Type 2 diabetes mellitus #11. History of bowel resection and ileostomy on 08/02/2020 #12. Generalized weakness and general medical debility #13. Anemia of chronic disease #14. Intermittent episode of A. fib with RVR, yesterday patient was in sinus rhythm but in view of worsening hypoxic respiratory failure went back into A. fib with RVR and is currently on Cardizem and amiodarone infusions Plan: Patient has been placed back on assist control mode of ventilation, and sedated, follow-up chest x-ray reviewed, showing stable findings of bibasilar infiltrates and small pleural effusions. We will continue monitoring patient's CBC, patient was transfused with 2 units of pack red blood cells, continue monitoring for any bleeding. Patient will be started on amiodarone in addition to Cardizem for rate control, however anticipate better rate controlled with improvement in oxygenation since patient was trached back to the ventilator, and a tracheostomy was switched out for a cuffed tracheostomy tube. Continue vasopressor support, continue IV fluids at 75 ML per hour. We'll continue to closely monitor the patient in the intensive care unit. I performed a history & physical examination of the patient and discussed their management with my nurse practitioner, Cheli Kendrick. I reviewed the nurse practitioner's note and agree with the documented findings and plan of care. Lung sounds are positive for diminished breath sounds The findings and the impression was discussed with the patient. I attest to the documentation by the nurse practitioner. Time with Patient: Greater than 30
[2020-11-03 11:44] LABS: Glucose,Whole Blood 242 mg/dL (75-99)
[2020-11-03 12:21] LABS: Anisocytosis Slight; HCT 25.2 % (39.0-53.0); HGB 8.2 gm/dL (13.0-17.5); Hypochromasia Moderate; MCH 30.5 pg (25.0-35.0); MCHC 32.7 g/dL (31.0-37.0); MCV 93.3 fL (80.0-100.0); Mean Platelet Volume 8.1; Platelet Count 229 k/uL (150-450); Poikilocytosis Slight; RDW 16.4 % (11.5-15.5); WBC 24.5 k/uL (3.8-10.6)
--- NOTE | 2020-11-03 12:36 | P.PN ---
Subjective Patient is seen in follow for acute kidney injury. Renal function a little worse today. Creatinine 2.12 today. He is currently on amiodarone as well as Cardizem drip for A. fib. He is also on a higher dose of Levophed compared to yesterday. Currently on 60% FiO2. Hemoglobin better status post blood transfusion yesterday. He's on IV fluids as well as TPN. Vital signs are stable. On vasopressor support. In A. fib. General: The patient appeared well nourished and normally developed. HEENT: Trach noted. LUNGS: Breath sounds decreased. HEART: Irregular rate and rhythm. ABDOMEN: Soft, no gross distention noted. EXTREMITITES: Trace edema. Objective - Vital Signs Vital signs: Vital Signs Temp 97.5 F L 11/03/20 12:00 Pulse 113 H 11/03/20 12:00 Resp 28 H 11/03/20 12:00 BP 106/68 11/03/20 11:00 Pulse Ox 98 11/03/20 12:00 Intake & Output 11/02/20 11/03/20 11/03/20 18:59 06:59 18:59 Intake Total 3205.5 2646.121 429.949 Output Total 700 523 18 Balance 2505.5 2123.121 411.949 Weight 90.6 kg 90.6 kg Intake: IV 1922 2559 241 Fat Emulsion 20% 250 ml 42 189 21 In Empty Bag 1 bag @ 21 mls/hr IV DAILY W[facility] Rx#: [id number] Lactated Ringers 1,000 ml 1500 1500 125 @ 125 mls/hr IV .Q8H [facility] Rx#:[id number] MVI (TPN) 720 95 Magnesium Sulfate-D5w Pmx 100 1 gm In Dextrose/Water 1 100ml.bag @ 100 mls/hr IVPB Q1H W[facility] Rx#: [id number] Mvi, Adult No.4 with Vit 180 K 10 ml Trace (Conc-1Ml/ Dose) 1 ml In Amino Acid 5%-D20w+Lytes*E* 1,000 ml @ 30 mls/hr IV .Q24H [facility] Rx#:[id number] Piperacillin-Tazobactam 3 100 150 .375 gm In Sodium Chloride 0.9% 100 ml @ 25 mls/hr IVPB Q8HR W[facility] Rx# :[id number] Intake, IV Titration 663.5 87.121 188.949 Amount Mvi, Adult No.4 with Vit 409.5 K 10 ml Trace (Conc-1Ml/ Dose) 1 ml In Amino Acid 5%-D20w+Lytes*E* 1,000 ml @ 30 mls/hr IV .Q24H [facility] Rx#:[id number] Norepinephrine 32 mg In 17.963 Sodium Chloride 0.9% 218 ml @ 0.05 MCG/KG/MIN 2. 123 mls/hr IV .Q24H [facility] Rx#:[id number] Norepinephrine 4 mg In 254 87.121 95.063 Sodium Chloride 0.9% 250 ml @ 0.05 MCG/KG/MIN 14. 44 mls/hr IV .[id number] W[facility] Rx#:[id number] propofoL 1,000 mg In 75.923 Empty Bag 1 bag @ Titrate IV .Q0M W[facility] Rx#: [id number] Blood Product 620 Rc As-1 Unit 310 [id number] Rc As-1 Unit 310 [id number] Output: Drainage 75 325 Abdomen 75 325 Urine 325 198 18 Stool 300 Other: Voiding Method Indwelling Catheter Indwelling Catheter ABP, PAP, CO, CI - Last Documented Arterial Blood Pressure 104/57 - Labs CBC & Chem 7: 11/02/20 20:06 11/03/20 05:12 Labs: Abnormal Lab Results - Last 24 Hours (Table) 11/02/20 11/02/20 11/02/20 Range/Units 06:10 18:41 20:06 WBC 13.5 H (3.8-10.6) k/uL RBC 3.24 L (4.30-5.90) m/uL Hgb 9.6 L D (13.0-17.5) gm/dL Hct 31.1 L (39.0-53.0) % MCHC 30.8 L (31.0-37.0) g/dL RDW 16.5 H (11.5-15.5) % Neutrophils # 12.5 H (1.3-7.7) k/uL Lymphocytes # 0.3 L (1.0-4.8) k/uL ABG pH (7.35-7.45) ABG pCO2 (35-45) mmHg ABG pO2 (83-108) mmHg ABG HCO3 (21-25) mmol/L ABG O2 Saturation (94-97) % Sodium (137-145) mmol/L Potassium (3.5-5.1) mmol/L Carbon Dioxide (22-30) mmol/L BUN (9-20) mg/dL Creatinine (0.66-1.25) mg/dL Glucose (74-99) mg/dL POC Glucose (mg/dL) 161 H (75-99) mg/dL Calcium (8.4-10.2) mg/dL Phosphorus (2.5-4.5) mg/dL Crossmatch See Detail 11/03/20 11/03/20 11/03/20 Range/Units 00:48 05:12 05:36 WBC (3.8-10.6) k/uL RBC (4.30-5.90) m/uL Hgb (13.0-17.5) gm/dL Hct (39.0-53.0) % MCHC (31.0-37.0) g/dL RDW (11.5-15.5) % Neutrophils # (1.3-7.7) k/uL Lymphocytes # (1.0-4.8) k/uL ABG pH (7.35-7.45) ABG pCO2 (35-45) mmHg ABG pO2 (83-108) mmHg ABG HCO3 (21-25) mmol/L ABG O2 Saturation (94-97) % Sodium 133 L (137-145) mmol/L Potassium 5.4 H (3.5-5.1) mmol/L Carbon Dioxide 14 L (22-30) mmol/L BUN 52 H (9-20) mg/dL Creatinine 2.12 H (0.66-1.25) mg/dL Glucose 275 H (74-99) mg/dL POC Glucose (mg/dL) 211 H 312 H (75-99) mg/dL Calcium 7.8 L (8.4-10.2) mg/dL Phosphorus 5.6 H (2.5-4.5) mg/dL Crossmatch 11/03/20 11/03/20 11/03/20 Range/Units 05:46 09:52 11:42 WBC (3.8-10.6) k/uL RBC (4.30-5.90) m/uL Hgb (13.0-17.5) gm/dL Hct (39.0-53.0) % MCHC (31.0-37.0) g/dL RDW (11.5-15.5) % Neutrophils # (1.3-7.7) k/uL Lymphocytes # (1.0-4.8) k/uL ABG pH 7.17 L* 7.18 L* (7.35-7.45) ABG pCO2 56 H 52 H (35-45) mmHg ABG pO2 269 H (83-108) mmHg ABG HCO3 20 L 19 L (21-25) mmol/L ABG O2 Saturation 100.0 H (94-97) % Sodium (137-145) mmol/L Potassium (3.5-5.1) mmol/L Carbon Dioxide (22-30) mmol/L BUN (9-20) mg/dL Creatinine (0.66-1.25) mg/dL Glucose (74-99) mg/dL POC Glucose (mg/dL) 242 H (75-99) mg/dL Calcium (8.4-10.2) mg/dL Phosphorus (2.5-4.5) mg/dL Crossmatch Microbiology - Last 24 Hours (Table) 10/31/20 08:52 Blood Culture - Preliminary Blood No Growth after 72 hours Assessment and Plan Plan: Assessment: 1. Acute kidney injury secondary to ATN secondary to hypotension, anemia and hemodynamic instability. Renal function worse. Creatinine 2.12 today. No hydronephrosis noted on kidney ultrasound. Oliguric. 2. Chronic kidney disease stage IIIa with baseline creatinine 1.2-1.5 secondary to nephrosclerosis. 3. A. fib with RVR. Maintained on amiodarone and Cardizem drip. 4. Hyponatremia from acute kidney injury and IV fluids. 5. Failed swallow eval. 6. Diabetes mellitus. 7. Anemia of chronic kidney disease. Maintained on Aranesp. Status post IV iron and blood transfusion this admission. No active bleeding. 8. 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 Underwent reversal of ileostomy with lysis of conditions on October 30. 9. Sepsis secondary to pneumonia. 10. Hypomagnesemia from GI losses. Status post replacement. 11. Metabolic acidosis secondary to acute kidney injury. Vent settings adjusted. He also received 2 A of bicarb IV push this morning. Maintained on oral bicarbonate as well. Plan: TPN and IV fluids per surgery. Continue to monitor renal function and urine output. Avoid nephrotoxins. Wean vasopressors. Monitor volume status closely. Lasix 80 mg IV once this afternoon if no improvement in urine output. DC sodium chloride tablets. Repeat BMP this evening.
[2020-11-03 12:56] LABS: Band Neutrophils % 7 %; Monocytes # (M) 0.49 k/uL (0-1.0); Neutrophils % (M) 91 %; Nucleated Red Blood Cells 0 /100 WBC (0-0); Total Cells Counted 100
[2020-11-03 12:57] LABS: Toxic Vacuolation Present
[2020-11-03 12:58] LABS: Polychromasia Present
[2020-11-03 13:53] LABS: Partial Thromboplastin Time 29.2 sec (22.0-30.0); Prothrombin Time 11.1 sec (9.0-12.0)
[2020-11-03] MEDS ORDERED: DESMOPRESSIN ACETATE 20 MCG in SODIUM CHLORIDE 0.9% 50 ML IVPB ONE (14:00)
--- NOTE | 2020-11-03 15:20 | P.PN ---
Subjective Progress Note Date: 11/03/20 CHIEF COMPLAINT: Respiratory distress HISTORY OF PRESENT ILLNESS: Patient seen and examined with Dr. Dempsey. Patient is in the ICU. He is postop day #4 status post reversal of ileostomy, lysis of adhesions, small bowel resection, repair of incisional hernia, partial omentectomy and placement of wound VAC. Yesterday afternoon patient started passing bloody diarrhea per his rectum. He did receive a total of 2 units of blood for hemoglobin of 6.2. His hemoglobin came up to 9.6 this morning. And repeat hemoglobin for this afternoon was 8.2. He's had no further episodes of bleeding. However he has been hypoxic and had required 100% FiO2 and during the evening patient did require to be on CPAP. Unfortunately patient did require to be placed on mechanical ventilation. He remains on Levophed. He has TPN for nutrition. He again went into A. fib with RVR. He is currently on Cardizem. Patient is having bleeding from his IV sites. Afebrile. WBC is up to 24.5 creatinine 2.1 to potassium 5.4 INR 1.0 PHYSICAL EXAM: VITAL SIGNS: Reviewed. GENERAL: Well-developed in no acute distress. HEENT: No sclera icterus. Extraocular movements grossly intact. Moist buccal mucosa. Head is atraumatic, normocephalic. ABDOMEN: Soft. Nondistended. Wound VAC in place along the incision site. Area is clean dry and intact NEUROLOGIC: Alert and oriented. Cranial nerves II through XII grossly intact. ASSESSMENT: 1. High ileostomy output, incisional hernia and extensive adhesions. Patient is status post reversal of ileostomy, lysis of adhesions, small bowel resection, repair of incisional hernia, partial omentectomy and wound VAC placement on 10/30/2020 2. Abdominal wound at surgical incision site. 3. History of ischemic small bowel with evidence of pneumatosis status post sma ll bowel resection on 07/24/2020. 4. History of intraperitoneal hemorrhage and small bowel ischemia status post exploratory laparotomy, washout of peritoneal cavity and ileostomy with small bowel resection on 08/02/2020 5. 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 Acute hypoxic respiratory failure 7. Sepsis secondary to pneumonia 8. Acute kidney injury 9. Anemia of chronic disease: With known chronic kidney disease, iron deficiency and severe protein calorie malnutrition. He did require blood transfusion and IV Iron during this admission 10. Unstageable sacral pressure ulcer PLAN: -Continue ICU management -Continue supportive care -Continue IV fluids -Continue TPN for nutrition support -Continue wound VAC -Continue local wound care -Continue antibiotics per ID Physician Store Receiver note has been reviewed by physician. Signing provider agrees with the documented findings, assessment, and plan of care. Objective - Vital Signs Vital signs: Vital Signs Temp 97.5 F L 11/03/20 12:00 Pulse 113 H 11/03/20 12:00 Resp 28 H 11/03/20 12:00 BP 106/68 11/03/20 11:00 Pulse Ox 98 11/03/20 12:00 Intake & Output 11/02/20 11/03/20 11/03/20 18:59 06:59 18:59 Intake Total 3205.5 2646.121 1894.949 Output Total 700 523 138 Balance 2505.5 2123.121 1756.949 Weight 90.6 kg 90.6 kg Intake: IV 1922 2559 1706 Fat Emulsion 20% 250 ml 42 189 21 In Empty Bag 1 bag @ 21 mls/hr IV DAILY [facility] Rx#: [id number] Lactated Ringers 1,000 ml 1500 1500 1000 @ 125 mls/hr IV .Q8H [facility] Rx#:[id number] MVI (TPN) 720 585 Magnesium Sulfate-D5w Pmx 100 1 gm In Dextrose/Water 1 100ml.bag @ 100 mls/hr IVPB Q1H [facility] Rx#: [id number] Mvi, Adult No.4 with Vit 180 K 10 ml Trace (Conc-1Ml/ Dose) 1 ml In Amino Acid 5%-D20w+Lytes*E* 1,000 ml @ 30 mls/hr IV .Q24H [facility] Rx#:[id number] Piperacillin-Tazobactam 3 100 150 100 .375 gm In Sodium Chloride 0.9% 100 ml @ 25 mls/hr IVPB Q8HR [facility] Rx# :[id number] Intake, IV Titration 663.5 87.121 188.949 Amount Mvi, Adult No.4 with Vit 409.5 K 10 ml Trace (Conc-1Ml/ Dose) 1 ml In Amino Acid 5%-D20w+Lytes*E* 1,000 ml @ 30 mls/hr IV .Q24H [facility] Rx#:[id number] Norepinephrine 32 mg In 17.963 Sodium Chloride 0.9% 218 ml @ 0.05 MCG/KG/MIN 2. 123 mls/hr IV .Q24H [facility] Rx#:[id number] Norepinephrine 4 mg In 254 87.121 95.063 Sodium Chloride 0.9% 250 ml @ 0.05 MCG/KG/MIN 14. 44 mls/hr IV .[id number] [facility] Rx#:[id number] propofoL 1,000 mg In 75.923 Empty Bag 1 bag @ Titrate IV .Q0M [facility] Rx#: [id number] Blood Product 620 Rc As-1 Unit 310 [id number] Rc As-1 Unit 310 [id number] Output: Drainage 75 325 Abdomen 75 325 Urine 325 198 138 Stool 300 Other: Voiding Method Indwelling Catheter Indwelling Catheter ABP, PAP, CO, CI - Last Documented Arterial Blood Pressure 104/57 - Labs CBC & Chem 7: 11/03/20 12:07 11/03/20 05:12 Labs: Abnormal Lab Results - Last 24 Hours (Table) 11/02/20 11/02/20 11/02/20 Range/Units 06:10 18:41 20:06 WBC 13.5 H (3.8-10.6) k/uL RBC 3.24 L (4.30-5.90) m/uL Hgb 9.6 L D (13.0-17.5) gm/dL Hct 31.1 L (39.0-53.0) % MCHC 30.8 L (31.0-37.0) g/dL RDW 16.5 H (11.5-15.5) % Neutrophils # 12.5 H (1.3-7.7) k/uL Neutrophils # (Manual) (1.3-7.7) k/uL Lymphocytes # 0.3 L (1.0-4.8) k/uL ABG pH (7.35-7.45) ABG pCO2 (35-45) mmHg ABG pO2 (83-108) mmHg ABG HCO3 (21-25) mmol/L ABG O2 Saturation (94-97) % Sodium (137-145) mmol/L Potassium (3.5-5.1) mmol/L Carbon Dioxide (22-30) mmol/L BUN (9-20) mg/dL Creatinine (0.66-1.25) mg/dL Glucose (74-99) mg/dL POC Glucose (mg/dL) 161 H (75-99) mg/dL Calcium (8.4-10.2) mg/dL Phosphorus (2.5-4.5) mg/dL Crossmatch See Detail 11/03/20 11/03/20 11/03/20 Range/Units 00:48 05:12 05:36 WBC (3.8-10.6) k/uL RBC (4.30-5.90) m/uL Hgb (13.0-17.5) gm/dL Hct (39.0-53.0) % MCHC (31.0-37.0) g/dL RDW (11.5-15.5) % Neutrophils # (1.3-7.7) k/uL Neutrophils # (Manual) (1.3-7.7) k/uL Lymphocytes # (1.0-4.8) k/uL ABG pH (7.35-7.45) ABG pCO2 (35-45) mmHg ABG pO2 (83-108) mmHg ABG HCO3 (21-25) mmol/L ABG O2 Saturation (94-97) % Sodium 133 L (137-145) mmol/L Potassium 5.4 H (3.5-5.1) mmol/L Carbon Dioxide 14 L (22-30) mmol/L BUN 52 H (9-20) mg/dL Creatinine 2.12 H (0.66-1.25) mg/dL Glucose 275 H (74-99) mg/dL POC Glucose (mg/dL) 211 H 312 H (75-99) mg/dL Calcium 7.8 L (8.4-10.2) mg/dL Phosphorus 5.6 H (2.5-4.5) mg/dL Crossmatch 11/03/20 11/03/20 11/03/20 Range/Units 05:46 09:52 11:42 WBC (3.8-10.6) k/uL RBC (4.30-5.90) m/uL Hgb (13.0-17.5) gm/dL Hct (39.0-53.0) % MCHC (31.0-37.0) g/dL RDW (11.5-15.5) % Neutrophils # (1.3-7.7) k/uL Neutrophils # (Manual) (1.3-7.7) k/uL Lymphocytes # (1.0-4.8) k/uL ABG pH 7.17 L* 7.18 L* (7.35-7.45) ABG pCO2 56 H 52 H (35-45) mmHg ABG pO2 269 H (83-108) mmHg ABG HCO3 20 L 19 L (21-25) mmol/L ABG O2 Saturation 100.0 H (94-97) % Sodium (137-145) mmol/L Potassium (3.5-5.1) mmol/L Carbon Dioxide (22-30) mmol/L BUN (9-20) mg/dL Creatinine (0.66-1.25) mg/dL Glucose (74-99) mg/dL POC Glucose (mg/dL) 242 H (75-99) mg/dL Calcium (8.4-10.2) mg/dL Phosphorus (2.5-4.5) mg/dL Crossmatch 11/03/20 Range/Units 12:07 WBC 24.5 H (3.8-10.6) k/uL RBC 2.70 L (4.30-5.90) m/uL Hgb 8.2 L (13.0-17.5) gm/dL Hct 25.2 L (39.0-53.0) % MCHC (31.0-37.0) g/dL RDW 16.4 H (11.5-15.5) % Neutrophils # (1.3-7.7) k/uL Neutrophils # (Manual) 24.00 H (1.3-7.7) k/uL Lymphocytes # (1.0-4.8) k/uL ABG pH (7.35-7.45) ABG pCO2 (35-45) mmHg ABG pO2 (83-108) mmHg ABG HCO3 (21-25) mmol/L ABG O2 Saturation (94-97) % Sodium (137-145) mmol/L Potassium (3.5-5.1) mmol/L Carbon Dioxide (22-30) mmol/L BUN (9-20) mg/dL Creatinine (0.66-1.25) mg/dL Glucose (74-99) mg/dL POC Glucose (mg/dL) (75-99) mg/dL Calcium (8.4-10.2) mg/dL Phosphorus (2.5-4.5) mg/dL Crossmatch Microbiology - Last 24 Hours (Table) 11/01/20 22:00 Gram Stain - Preliminary Sputum Sputum Culture - Preliminary Gram Neg Bacilli 10/31/20 08:52 Blood Culture - Preliminary Blood No Growth after 72 hours
[2020-11-03 16:20] LABS: Partial Thromboplastin Time 28.2 sec (22.0-30.0)
[2020-11-03 17:17] LABS: Anisocytosis Slight; Basophils # (A) 0.1 k/uL (0-0.2); Basophils % (A) 0 %; Eosinophils # (A) 0.1 k/uL (0-0.7); Eosinophils % (A) 0 %; HCT 24.1 % (39.0-53.0); HGB 7.8 gm/dL (13.0-17.5); Hypochromasia Moderate; Lymphocytes # (A) 0.1 k/uL (1.0-4.8); Lymphocytes % (A) 0 %; MCH 30.3 pg (25.0-35.0); MCHC 32.5 g/dL (31.0-37.0); MCV 93.3 fL (80.0-100.0); Mean Platelet Volume 7.7; Monocytes # (A) 0.9 k/uL (0-1.0); Monocytes % (A) 3 %; Neutrophils # (A) 28.7 k/uL (1.3-7.7); Neutrophils % (A) 96 %; Platelet Count 246 k/uL (150-450); Poikilocytosis Slight; RBC 2.59 m/uL (4.30-5.90); RDW 16.8 % (11.5-15.5)
[2020-11-03 17:21] LABS: Calcium 7.9 mg/dL (8.4-10.2); Potassium 4.3 mmol/L (3.5-5.1)
[2020-11-03 18:03] LABS: Glucose,Whole Blood 301 mg/dL (75-99)
--- NOTE | 2020-11-03 20:09 | P.PN ---
Progress Note - Text Progress Note Date: 11/03/20 Interval history: This is a pleasant 80 years old male with past medical history of coronary art fuad disease, COPD, diabetes mellitus, hyperlipidemia, hypertension, hypothyroidism, coronary artery disease status post cardiac cath and stent placement. He recently underwent double coronary artery bypass grafting for his triple-vessel coronary artery disease. He was in the hospital from 07/18/20- 08/25/2020 pt has tracheostomhy and PEG tube , Information were obtained with the help of at bedside, he presents with confusion, and a lot of secretion Why he states that after been discharged from acute and he went to [facility] aren't states therefore one month and 5 days and then he was discharged a few days ago to prison at [facility] on Friday, however over the weekend he has more congestion, he has weak cough and needed frequent suctioning, patient was able to talk weekly his little confused but he can't communicate through gesture, he denies pain but he is tachypneic He has tracheostomy, PEG tube and try to colostomy. Admitted with-hypotension secondary to severe sepsis secondary to pneumonia, aspiration pneumonia, acute hypoxic respiratory failure, acute kidney injury secondary to ATN, elevated sodium, increased lactic acid, elevated troponin felt to be from tachycardia. Recent history of intraperitoneal hemorrhage status post laboratory with washout and ileostomy on 08/02/2020. Tracheostomy. C. diff ruled out. Recurrent A. fib. She was able to talk after covering his tracheostomy. Patient started on full liquids. Liquid stools persist. Discussed with Dr. Galvan and dinner Dr. Dempsey. Given that patient has a significant stool output. I highly doubt patient will get better of his discharge. We all agreed that patient should proceed with surgery as soon as possible. Was discussed with the patient at length. He agrees. October 30- patient underwent reversal of ileostomy [lysis of adhesions, small bowel resection, repair of incisional hernia repair, partial omentectomy]. Wound VAC was placed. Postprocedure. Blood pressure low. Started on levo fed. Did have a run of A. fib uncontrolled. Started on TPN and lipids. Patient did have loose stools. Hemoglobin dropped. Receive 2 units of blood Today-ICU: Earlier patient did go into respiratory distress. Tracheostomy was changed to cuffed 1. Patient on propofol and levo fed. On TPN. Also went into A. fib with rapid ventricular rate. Put back on IV Cardizem and IV amiodarone. Back in a sinus rhythm. On the ventilator. FiO2 16 a PEEP of 5. Leaking blood around the wound VAC. Also bleeding around the central line site Review of systems: Patient on the vent Active Medications Acetaminophen (Acetaminophen Tab 325 Mg Tab) 650 mg PO Q6HR PRN PRN Reason: Fever and/ or Pain Last Admin: 10/29/20 21:05 Dose: 650 mg Documented by: Albuterol/Ipratropium (Ipratropium-Albuterol 3 Ml Neb) 3 ml INHALATION RT-QID [facility] Last Admin: 11/03/20 15:17 Dose: 3 ml Documented by: Albuterol/Ipratropium (Ipratropium-Albuterol 3 Ml Neb) 3 ml INHALATION RT-Q2H PRN PRN Reason: Shortness Of Breath Or Wheezing Last Admin: 10/03/20 21:27 Dose: 3 ml Documented by: Atorvastatin Calcium (Atorvastatin 40 Mg Tab) 40 mg PEG/G-TUBE HS@2000 [facility] Last Admin: 11/02/20 20:56 Dose: 40 mg Documented by: Cholestyramine Resin (Cholestyramine (With Sugar) 4 Gm Packet) 4 gm PO QID [facility] Last Admin: 11/03/20 16:37 Dose: 4 gm Documented by: Darbepoetin Alex (Darbepoetin Alex 40 Mcg/0.4 Ml Syringe) 40 mcg SQ Q7D [facility] Last Admin: 10/31/20 12:52 Dose: 40 mcg Documented by: Famotidine (Famotidine 20 Mg Tab) 20 mg PO HS [facility] Last Admin: 11/02/20 20:56 Dose: 20 mg Documented by: Hydrocortisone Sodium Succinate (Hydrocortisone Succinate 100 Mg/2 Ml Vial) 50 mg IV Q6HR [facility] Last Admin: 11/03/20 16:56 Dose: 50 mg Documented by: Hydromorphone HCl (Hydromorphone 1 Mg/Ml 1 Ml Syringe) 1 mg IVP Q2HR PRN PRN Reason: Pain Lactated Ringer's (Lactated Ringers) 1,000 mls @ 125 mls/hr IV .Q8H [facility] Last Admin: 11/03/20 16:37 Dose: 125 mls/hr Documented by: Piperacillin Sod/Tazobactam (Sod 3.375 gm/ Sodium Chloride) 100 mls @ 25 mls/hr IVPB Q8HR [facility] Last Admin: 11/03/20 16:36 Dose: 25 mls/hr Documented by: Sodium Bicarbonate 50 ml/ (Sodium Chloride) 1,050 mls @ 75 mls/hr IV .Q14H [facility] Last Admin: 11/03/20 11:00 Dose: Not Given Documented by: Amiodarone HCl 450 mg/ (Dextrose/Water) 250 mls @ 16.667 mls/hr IV .Q15H [facility]; Protocol Last Titration: 11/03/20 19:48 Dose: 0 mg/min, 0 mls/hr Documented by: Propofol 1,000 mg/ IV Solution 100 mls @ 0 mls/hr IV .Q0M [facility]; Protocol Last Admin: 11/03/20 16:56 Dose: 40 mcg/kg/min, 21.744 mls/hr Documented by: Norepinephrine Bitartrate 32 (mg/ Sodium Chloride) 250 mls @ 2.123 mls/hr IV .Q24H [facility]; Protocol Last Titration: 11/03/20 12:23 Dose: 0.14 mcg/kg/min, 5.946 mls/hr Documented by: Diltiazem HCl 125 mg/ Sodium (Chloride) 125 mls @ 7.5 mls/hr IV .[id number] [facility] Last Infusion: 11/03/20 19:48 Dose: 0 mg/hr, 0 mls/hr Documented by: Parenteral Vitamin Supplement 10 ml/ Zinc/Copper/Manganese/Selenium 1 ml/ Sodium Acetate 40 meq/ Calcium Gluconate 1 gm / Magnesium Sulfate 0.75 gm/Potassium Acetate 10 meq/Amino Acids/Dextrose 1,047.5 mls @ 75 mls/hr IV .BY DURATION [facility] Sodium Acetate 40 meq/ Calcium Gluconate 1 gm/ Magnesium Sulfate 0.75 gm/ Potassium Acetate 10 meq/ Amino Acids/Dextrose 1,036.5 mls @ 75 mls/hr IV .BY DURATION [facility] Insulin Aspart (Insulin Aspart (Novolog) 100 Unit/Ml Vial) 0 unit SQ Q6H [facility]; Protocol Last Admin: 11/03/20 12:27 Dose: 3 unit Documented by: Levothyroxine Sodium (Levothyroxine 50 Mcg Tab) 50 mcg PEG/G-TUBE DAILY@0600 [facility] Last Admin: 11/03/20 05:35 Dose: 50 mcg Documented by: Lidocaine (Lidocaine 5% Patch) 1 patch TOPICAL DAILY [facility] Last Admin: 11/03/20 12:23 Dose: Not Given Documented by: Methyl Salicylate (Methyl Salicylate/Menthol Cream 5 Oz) 1 applic TOPICAL Q6HR PRN PRN Reason: Pain Last Admin: 10/29/20 06:03 Dose: 1 applic Documented by: Miscellaneous Information (Potassium Replacement Protocol 1 Each Misc) 1 each MISCELLANE DAILY PRN; Protocol PRN Reason: Per Protocol Miscellaneous Information (Magnesium Replacement Protocol 1 Each Misc) 1 each MISCELLANE DAILY PRN; Protocol PRN Reason: Per Protocol Naloxone HCl (Naloxone 0.4 Mg/Ml 1 Ml Vial) 0.2 mg IV Q2M PRN PRN Reason: Opioid Reversal Octreotide Acetate (Octreotide 100 Mcg/Ml Inj) 100 mcg SQ Q8HR [facility] Last Admin: 11/03/20 16:37 Dose: 100 mcg Documented by: Ondansetron HCl (Ondansetron 4 Mg/2 Ml Vial) 4 mg IVP Q6HR PRN PRN Reason: Nausea And Vomiting Quetiapine Fumarate (Quetiapine 25 Mg Tab) 25 mg PO HS [facility] Last Admin: 11/02/20 20:56 Dose: 25 mg Documented by: Saliva Substitute (Dry Mouth [place] 44.3 [place]/44.3 Ml [place]) 1 spray MUCOUS MEM QID PRN PRN Reason: Dry Mouth Last Admin: 11/02/20 18:23 Dose: 1 spray Documented by: Sodium Bicarbonate (Sodium Bicarbonate Tab 650 Mg Tab) 650 mg PO TID [facility] Last Admin: 11/03/20 16:36 Dose: 650 mg Documented by: On examination: VITAL SIGNS: 97.5, 96, 28, 109/54, 100% on the ventilator GENERAL APPEARANCE: Laying in bed, sedated HEENT:Trach collar with shield EYES: Pupils equal. Conjunctiva pale. NECK: JVD unable to assess. Mass not palpable. RESPIRATORY: Respiratory effort increased Lungs decreased breath sounds CARDIOVASCULAR: First and second sounds normal. Edema present. ABDOMEN: PEG tube.. Wound VAC, blood around it. PSYCHIATRY: Sedated INVESTIGATIONS, reviewed in the clinical context: November 03: WBC 30 globin 7.8 potassium 4.3 bun 55 creatinine 2.196 November 02: WBC 10.9 hemoglobin 6.2 platelets 246 potassium 5.1 creatinine 2.0 November 01: WBC 10 hemoglobin 8.1 potassium 4.9 creatinine 1.69 October 31: WBC 619.6 hemoglobin 10.5 potassium 4.8 creatinine 1.37 October 30: WBC 7.7 hemoglobin 9.5 potassium 3.8 creatinine 1.4 October 28: WBC 8.4 hemoglobin 9.6 potassium 4.1 creatinine 1.51 October 27: WBC 7.2 hemoglobin 9 platelets 233 potassium 3.7 creatinine 1.69 October 20: White count 13.2 hemoglobin 9.4 platelets 206 potassium 4 creatinine 1.48 White count 7.1 hemoglobin 8.7 platelets 256 potassium 3.8 bicarbonate 20 bun 33 creatinine 3.17 Sputum culture-positive for Staphylococcus aureus MSSA, Klebsiella Pneumoniae Previous labs: White count 16.6 hemoglobin 9.9 platelets 584 bun 100 creatinine 3.18 Coronavirus PCR-not detected Renal ultrasound-normal bilateral renal ultrasound Assessment and plan: -Hypotensive shock -norepinephrine IV , on midodrine-patient now back on levo fed -Abdominal wound at surgical incision site, followed by general surgery with local dressing -History of ischemic small bowel with evidence of pneumatosis status post small bowel resection on 07/24/2020 -Ileostomy for intraperitoneal hemorrhage and small bowel ischemia status post exploratory laboratory or short of periportal cavity on 08/02/2020. Ileostomy reversal on October 30. Now with a wound VAC -Coronary artery disease with bypass in July 2020, and Lopressor. Aspirin -Acute hypoxic respiratory failure secondary to pneumonia, continue with oxygen supplementation, currently with the trach collar, 28% -Anemia secondary to chronic kidney disease , follow H&H -Acute kidney injury secondary to ATN secondary to hypotension and hemodynamic instability - Creatinine 1.48 -Chronic kidney disease stage III the baseline creatinine of 1.2-1.5 secondary to nephrosclerosis -Paroxysmal atrial fibrillation with rapid ventricular rate on amiodarone by mouth, Lopressor, converted to sinus rhythm. Patient has been in and out of rapid A. fib. -Hypernatremia secondary to decreased oral water intake. Receiving free water- improved -Possible aspiration pneumonia, sputum positive for MSSA and Klebsiella pneumoniae., Causing sepsis IV Zosyn-changed to IV cefepime-completed course -Silent aspiration detected by barium study. Nothing by mouth -Stage II sacral pressure ulcer, right heel decub -Hypothyroidism, continue Synthroid -Moderate to severe COPD, on bronchodilators, inhaled steroids -Diabetes mellitus type 2, follow Accu-Cheks -Essential hypertension -Hyperlipidemia, continue Lipitor -BPH on Flomax -Enteral tube feeding at 90 mL an hour before surgery. 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 Ileostomy was reversed on October 30 -Acute GI blood loss anemia, symptomatic hypotension. Patient is receiving second unit of blood this afternoon. -Started on TPN and lipids -Back on the ventilator on November 03. -DO NOT RESUSCITATE Prognosis guarded. On the ventilator. Atrial fibrillation. Bleeding around the wound VAC. Also bleeding around the central line site. We will give 10 mg vitamin K
[2020-11-03 21:08] LABS: Glucose,Whole Blood 343 mg/dL (75-99)
[2020-11-03] MEDS: QUEtiapine 25 MG TAB PO SCH (21:14)
[2020-11-03] MEDS: FAMOTIDINE 20 MG TAB PO SCH (21:14)
[2020-11-03] MEDS: ATORVASTATIN 40 MG TAB PEG/G-TUBE SCH (21:14)
[2020-11-04 01:16] LABS: Glucose,Whole Blood 316 mg/dL (75-99)
[2020-11-04] MEDS: INSULIN ASPART (NovoLOG) 100 UNIT/ML VIAL SQ SCH ×3 (01:17→14:57)
[2020-11-04] MEDS: AMIODARONE 450 MG in DEXTROSE 5% IN WATER 250 ML IV SCH ×2 (02:44)
[2020-11-04 03:31] LABS: Anisocytosis Slight; HCT 20.5 % (39.0-53.0); Hypochromasia Slight; MCH 30.3 pg (25.0-35.0); MCHC 32.7 g/dL (31.0-37.0); MCV 92.7 fL (80.0-100.0); Mean Platelet Volume 7.9; Platelet Count 182 k/uL (150-450); Poikilocytosis Slight; RBC 2.21 m/uL (4.30-5.90); RDW 16.8 % (11.5-15.5)
[2020-11-04 03:34] LABS: HGB 6.7 gm/dL (13.0-17.5)
[2020-11-04 03:35] LABS: INR 1.1 (<1.2); Prothrombin Time 11.5 sec (9.0-12.0)
[2020-11-04 03:48] LABS: Albumin 1.9 g/dL (3.5-5.0); Calcium 7.7 mg/dL (8.4-10.2); Magnesium 1.8 mg/dL (1.6-2.3); Phosphorus 3.5 mg/dL (2.5-4.5); Potassium 4.6 mmol/L (3.5-5.1); Total Bilirubin 0.5 mg/dL (0.2-1.3)
[2020-11-04 04:47] LABS: ABG Base Excess -6.5 mmol/L; ABG HCO3 20 mmol/L (21-25); ABG Oxygen Saturation 99.6 % (94-97); ABG PCO2 45 mmHg (35-45); ABG PH 7.27 (7.35-7.45); ABG PO2 123 mmHg (83-108); ABG TCO2 22 mmol/L (19-24); Allen Test Performed? Yes
[2020-11-04 05:40] LABS: Band Neutrophils % 37 %; Metamyelocytes # (M) 0.55 k/uL (0); Metamyelocytes % 2 %; Monocytes # (M) 1.38 k/uL (0-1.0); Neutrophils % (M) 56 %; Nucleated Red Blood Cells 2 /100 WBC (0-0); Total Cells Counted 200; WBC 27.5 k/uL (3.8-10.6)
[2020-11-04 05:41] LABS: Anisocytosis (M) Present; Polychromasia Present; Toxic Granulation Present; Toxic Vacuolation Present
[2020-11-04] MEDS: HYDROCORTISONE SUCCINATE 100 MG/2 ML VIAL IV SCH ×2 (05:44→14:57)
[2020-11-04] MEDS: LEVOTHYROXINE 50 MCG TAB PEG/G-TUBE SCH (05:44)
[2020-11-04 05:53] LABS: Glucose,Whole Blood 275 mg/dL (75-99)
[2020-11-04] MEDS ORDERED: FUROSEMIDE 10 MG/ML 10 ML VIAL IV STA (06:32)
[2020-11-04] MEDS: IPRATROPIUM-ALBUTEROL 3 ML NEB INHALATION SCH ×2 (07:26→12:11)
[2020-11-04] MEDS: NOREPINEPHRINE 32 MG in SODIUM CHLORIDE 0.9% 218 ML IV SCH (07:40)
[2020-11-04] MEDS: DILTIAZEM 125 MG in SODIUM CHLORIDE 0.9% 100 ML IV SCH (07:56)
[2020-11-04] MEDS: PIPERACILLIN-TAZOBACTAM 3.375 GM in SODIUM CHLORIDE 0.9% 100 ML IVPB SCH (08:12)
[2020-11-04] MEDS: CHOLESTYRAMINE (WITH SUGAR) 4 GM PACKET PO SCH (08:13)
[2020-11-04] MEDS: LIDOCAINE 5% PATCH TOPICAL SCH (08:14)
[2020-11-04] MEDS: SODIUM BICARBONATE TAB 650 MG TAB PO SCH (08:15)
[2020-11-04] MEDS: OCTREOTIDE 100 MCG/ML INJ SQ SCH (08:46)
[2020-11-04 09:09] VITALS: BP 114/62; TEMP 98.1
[2020-11-04] MEDS ORDERED: IOPAMIDOL CONTRAST (ORAL USE) VIAL PO PRN (09:36)
[2020-11-04 10:03] VITALS: RESP 30
[2020-11-04] MEDS ORDERED: MORPHINE SULFATE 2 MG/ML SYRINGE IV PRN (10:23)
[2020-11-04] MEDS ORDERED: MORPHINE SULFATE 4 MG/ML SYRINGE IV PRN (10:23)
[2020-11-04] MEDS ORDERED: LORazepam 2 MG/ML INJ IV PRN (10:23)
--- NOTE | 2020-11-04 10:23 | P.PN ---
Subjective Progress Note Date: 11/04/20 Principal diagnosis: Abdominal wound Patient underwent ileostomy reversal earlier this week. Last night had some cardiac arrhythmias. Remains hypotensive on pressors. White blood cell count remains elevated with bandemia present. Has had some oozing from his midline incision. Hemoglobin was 6.7. Objective - Vital Signs Vital signs: Vital Signs Temp 98.1 F 11/04/20 09:07 Pulse 113 H 11/04/20 10:00 Resp 30 H 11/04/20 10:00 BP 114/62 11/04/20 09:07 Pulse Ox 100 11/04/20 10:00 Intake & Output 11/03/20 11/04/20 11/04/20 18:59 06:59 18:59 Intake Total 2834.247 2999.315 1087.343 Output Total 228 150 65 Balance 2606.247 2849.315 1022.343 Weight 90.6 kg 95.1 kg Intake: IV 2546 2340 665 Fat Emulsion 20% 250 ml 21 In Empty Bag 1 bag @ 21 mls/hr IV DAILY [facility] Rx#: [id number] Lactated Ringers 1,000 ml 1500 1500 290 @ 125 mls/hr IV .Q8H [facility] Rx#:[id number] MVI (TPN) 825 840 300 Piperacillin-Tazobactam 3 200 75 .375 gm In Sodium Chloride 0.9% 100 ml @ 25 mls/hr IVPB Q8HR [facility] Rx# :[id number] Intake, IV Titration 288.247 569.315 62.343 Amount Amiodarone 450 mg In 171.67 Dextrose 5% in Water 250 ml @ 0.5 MG/MIN 16.667 mls/hr IV .Q15H [facility] Rx#: [id number] Diltiazem 125 mg In 65.875 1.583 Sodium Chloride 0.9% 100 ml @ 7.5 MG/HR 7.5 mls/hr IV .[id number] [facility] Rx#: [id number] Norepinephrine 32 mg In 17.963 149.098 60.760 Sodium Chloride 0.9% 218 ml @ 0.05 MCG/KG/MIN 2. 123 mls/hr IV .Q24H [facility] Rx#:[id number] Norepinephrine 4 mg In 95.063 Sodium Chloride 0.9% 250 ml @ 0.05 MCG/KG/MIN 14. 44 mls/hr IV .[id number] [facility] Rx#:[id number] propofoL 1,000 mg In 175.221 182.672 Empty Bag 1 bag @ Titrate IV .Q0M [facility] Rx#: [id number] Oral 50 Blood Product 0 310 Rc As-1 Unit 0 310 [id number] Other 90 Output: Urine 228 150 65 Other: Voiding Method Indwelling Catheter Indwelling Catheter Indwelling Catheter ABP, PAP, CO, CI - Last Documented Arterial Blood Pressure 106/57 - Exam Abdomen: Soft, minimal distention, open midline wound dressing taken down, no active bleeding at this time, some old clot present which was evacuated. Still no bleeding seen. Wound redressed. - Labs CBC & Chem 7: 11/04/20 03:00 11/04/20 03:00 Labs: Abnormal Lab Results - Last 24 Hours (Table) 11/02/20 11/03/20 11/03/20 Range/Units 06:10 11:42 12:07 WBC 24.5 H (3.8-10.6) k/uL RBC 2.70 L (4.30-5.90) m/uL Hgb 8.2 L (13.0-17.5) gm/dL Hct 25.2 L (39.0-53.0) % RDW 16.4 H (11.5-15.5) % Neutrophils # (1.3-7.7) k/uL Neutrophils # (Manual) 24.00 H (1.3-7.7) k/uL Lymphocytes # (1.0-4.8) k/uL Monocytes # (Manual) (0-1.0) k/uL Metamyelocytes # (Man) (0) k/uL Nucleated RBCs (0-0) /100 WBC Fibrinogen (200-500) mg/dL ABG pH (7.35-7.45) ABG pO2 (83-108) mmHg ABG HCO3 (21-25) mmol/L ABG O2 Saturation (94-97) % Sodium (137-145) mmol/L Carbon Dioxide (22-30) mmol/L BUN (9-20) mg/dL Creatinine (0.66-1.25) mg/dL Glucose (74-99) mg/dL POC Glucose (mg/dL) 242 H (75-99) mg/dL Calcium (8.4-10.2) mg/dL Total Protein (6.3-8.2) g/dL Albumin (3.5-5.0) g/dL Crossmatch See Detail 11/03/20 11/03/20 11/03/20 Range/Units 13:46 16:44 17:00 WBC 30.0 H (3.8-10.6) k/uL RBC 2.59 L (4.30-5.90) m/uL Hgb 7.8 L (13.0-17.5) gm/dL Hct 24.1 L (39.0-53.0) % RDW 16.8 H (11.5-15.5) % Neutrophils # 28.7 H (1.3-7.7) k/uL Neutrophils # (Manual) (1.3-7.7) k/uL Lymphocytes # 0.1 L (1.0-4.8) k/uL Monocytes # (Manual) (0-1.0) k/uL Metamyelocytes # (Man) (0) k/uL Nucleated RBCs (0-0) /100 WBC Fibrinogen 508 H (200-500) mg/dL ABG pH (7.35-7.45) ABG pO2 (83-108) mmHg ABG HCO3 (21-25) mmol/L ABG O2 Saturation (94-97) % Sodium 133 L (137-145) mmol/L Carbon Dioxide 19 L (22-30) mmol/L BUN 55 H (9-20) mg/dL Creatinine 2.19 H (0.66-1.25) mg/dL Glucose 338 H (74-99) mg/dL POC Glucose (mg/dL) (75-99) mg/dL Calcium 7.9 L (8.4-10.2) mg/dL Total Protein (6.3-8.2) g/dL Albumin (3.5-5.0) g/dL Crossmatch 11/03/20 11/03/20 11/04/20 Range/Units 18:01 21:07 01:14 WBC (3.8-10.6) k/uL RBC (4.30-5.90) m/uL Hgb (13.0-17.5) gm/dL Hct (39.0-53.0) % RDW (11.5-15.5) % Neutrophils # (1.3-7.7) k/uL Neutrophils # (Manual) (1.3-7.7) k/uL Lymphocytes # (1.0-4.8) k/uL Monocytes # (Manual) (0-1.0) k/uL Metamyelocytes # (Man) (0) k/uL Nucleated RBCs (0-0) /100 WBC Fibrinogen (200-500) mg/dL ABG pH (7.35-7.45) ABG pO2 (83-108) mmHg ABG HCO3 (21-25) mmol/L ABG O2 Saturation (94-97) % Sodium (137-145) mmol/L Carbon Dioxide (22-30) mmol/L BUN (9-20) mg/dL Creatinine (0.66-1.25) mg/dL Glucose (74-99) mg/dL POC Glucose (mg/dL) 301 H 343 H 316 H (75-99) mg/dL Calcium (8.4-10.2) mg/dL Total Protein (6.3-8.2) g/dL Albumin (3.5-5.0) g/dL Crossmatch 11/04/20 11/04/20 11/04/20 Range/Units 03:00 03:00 04:43 WBC 27.5 H (3.8-10.6) k/uL RBC 2.21 L (4.30-5.90) m/uL Hgb 6.7 L* (13.0-17.5) gm/dL Hct 20.5 L (39.0-53.0) % RDW 16.8 H (11.5-15.5) % Neutrophils # (1.3-7.7) k/uL Neutrophils # (Manual) 25.50 H (1.3-7.7) k/uL Lymphocytes # (1.0-4.8) k/uL Monocytes # (Manual) 1.38 H (0-1.0) k/uL Metamyelocytes # (Man) 0.55 H (0) k/uL Nucleated RBCs 2 H (0-0) /100 WBC Fibrinogen (200-500) mg/dL ABG pH 7.27 L (7.35-7.45) ABG pO2 123 H (83-108) mmHg ABG HCO3 20 L (21-25) mmol/L ABG O2 Saturation 99.6 H (94-97) % Sodium 132 L (137-145) mmol/L Carbon Dioxide 21 L (22-30) mmol/L BUN 57 H (9-20) mg/dL Creatinine 2.19 H (0.66-1.25) mg/dL Glucose 290 H (74-99) mg/dL POC Glucose (mg/dL) (75-99) mg/dL Calcium 7.7 L (8.4-10.2) mg/dL Total Protein 4.0 L (6.3-8.2) g/dL Albumin 1.9 L (3.5-5.0) g/dL Crossmatch 11/04/20 Range/Units 05:51 WBC (3.8-10.6) k/uL RBC (4.30-5.90) m/uL Hgb (13.0-17.5) gm/dL Hct (39.0-53.0) % RDW (11.5-15.5) % Neutrophils # (1.3-7.7) k/uL Neutrophils # (Manual) (1.3-7.7) k/uL Lymphocytes # (1.0-4.8) k/uL Monocytes # (Manual) (0-1.0) k/uL Metamyelocytes # (Man) (0) k/uL Nucleated RBCs (0-0) /100 WBC Fibrinogen (200-500) mg/dL ABG pH (7.35-7.45) ABG pO2 (83-108) mmHg ABG HCO3 (21-25) mmol/L ABG O2 Saturation (94-97) % Sodium (137-145) mmol/L Carbon Dioxide (22-30) mmol/L BUN (9-20) mg/dL Creatinine (0.66-1.25) mg/dL Glucose (74-99) mg/dL POC Glucose (mg/dL) 275 H (75-99) mg/dL Calcium (8.4-10.2) mg/dL Total Protein (6.3-8.2) g/dL Albumin (3.5-5.0) g/dL Crossmatch Microbiology - Last 24 Hours (Table) 11/01/20 22:00 Gram Stain - Preliminary Sputum Sputum Culture - Preliminary Pseudomonas aeruginosa Gram Neg Bacilli Radha albicans 10/31/20 08:52 Blood Culture - Preliminary Blood No Growth after 72 hours Assessment and Plan (1) Surgical wound dehiscence Narrative/Plan: Patient with elevated white blood cell count and bandemia. Had some cardiac issues last night and is hypotensive. Case discussed with Dr. Dempsey. Stat CAT scan ordered to evaluate the anastomotic site. Dr. Meyers then spoke with the patient's family who apparently are choosing to proceed with comfort measures only. We'll follow with you. Current Visit: Yes Status: Acute Code(s): T81.31XA - DISRUPTION OF EXTERNAL OPERATION (SURGICAL) WOUND, NEC, INIT SNOMED Code(s): 59749935
--- NOTE | 2020-11-04 10:24 | PN ---
PROGRESS NOTE Mr. Tinoco was on a combination of amiodarone and Cardizem yesterday because of atrial fib with rapid ventricular rate. He continues to have a significant drop in hemoglobin. His mentation is down and he is oozing from the surgical site as well as from the left subclavian site. Yesterday he had several episodes of pauses and amiodarone and Cardizem were both discontinued. This morning his rate is fast again and he is on 5 mg of Cardizem drip. He is on Levophed for pressure support and a small dose of Cardizem. He does not respond. He is much more lethargic today. He is having a drop in hemoglobin, receiving blood transfusion. This gentleman has several comorbid conditions including CAD, prior bypass surgery, bowel resection, repeat surgery performed earlier in the week. Overall prognosis is quite poor. PHYSICAL EXAM: Revealed blood pressure of about 108, both heart rate of about 120, irregular. S1-S2 heard normally, short systolic murmur, irregular rate and rhythm noted. Lungs reveal diminished air entry. Abdomen exam was deferred. Central nervous system exam cannot be assessed. Patient is quite lethargic, does not respond to commands. He is oxygenating fairly well. I am recommending that given his multiple comorbid conditions and worsening clinical status, we should seriously consider comfort care and/or hospice and I would recommend this and will be happy to talk to the patient's when she is here today. No other recommendations other than leaving him on Cardizem at 5 with the understanding that if he develops bradycardia we will discontinue the medication. MMODL / IJN: [id number] /
[2020-11-04] MEDS ORDERED: MORPHINE SULFATE (100 MG/2 ML) 100 MG in SODIUM CHLORIDE 0.9% 100 ML IV SCH (11:00)
--- NOTE | 2020-11-04 11:44 | XR ---
EXAMINATION TYPE: XR chest 1V portable DATE OF EXAM: 11/04/2020 COMPARISON: 11/03/2020 INDICATION: Line and tube placement TECHNIQUE: Single frontal view of the chest is obtained. FINDINGS: The heart size is normal. The pulmonary vasculature is normal. Bibasilar infiltrates are silhouetting the diaphragms. Small effusions may be present Tracheostomy tube is present with tip above the mickey. IMPRESSION: 1. Bibasilar infiltrates with small pleural effusions. Findings are stable over the interval.
[2020-11-04] MEDS: LACTATED RINGERS 1,000 ML IV SCH (12:15)
--- NOTE | 2020-11-04 12:57 | P.PN ---
Subjective Progress Note Date: 11/04/20 Principal diagnosis: Respiratory failure. Reevaluated today on 10/27/2020, patient remains in the ICU, remains on 28% trach collar, he is in sinus rhythm, he has significant ostomy output, and significant urinary output, remains on LR at 100 mL per hour. Continues to have over 2.1 L of output from his ostomy. Surgery is considering reversal for his ileostomy, however I discussed the situation with the surgeon and with the thoracic surgeon as well as the admitting physician, we seem to be all in agreement to wait at least a month of rehabilitation, make sure the patient is a bit stronger before he goes back to oral are. I believe the patient is ready to be transferred back to rehab, and antibiotics to be continued as per infectious disease on the case. He may not even need any antibiotics at this point. CBC is normal left lites are normal renal profile is improving with BUN down to 66 creatinine is down to 1.6. His last sputum culture was on October 03 and I was positive for staph aureus and Klebsiella pneumonia both were treated. Patient was reevaluated today on 10/28/2020, remains in the ICU, he remains on 28% trach collar. Continues to have significant output from his ostomy. Patient remains on IV fluids in the 100 mL per hour. There is a bit of a concern that if his IV fluid is to be placed on hold, patient would become dehydrated and negative fluid balance within a short period of time since his ileostomy output is so significant. Hence there is a bit of reluctance about sending the patient back to retirement at this point, and I'm suggesting possibly inpatient rehab consider sending the patient to [facility] rehabilitation with Dr. Lan. This is to be addressed by his admitting physician. Clinically the patient is doing great, his labs are excellent. Patient is not in any form of distress Patient was reevaluated today on 10/16/2020, patient is now on the regular medical floor, he is on trach collar at 28%, no significant changes over the last 24 hours, patient continues to have a significant output from his ostomy. And the admitting physician is concerned that the patient will not be able to keep up with output especially if his IV fluid is discontinued. We are barely making up for his output by giving him enteral feeding via PEG tube, in addition he is receiving 100 mL an hour of LR. Otherwise the patient will get dehydrated with a matter of days and will and the back in the hospital discharge. Hence Dr. Salinas is going to discuss possibly reversal of his colostomy with the surgeon. Labs today were reviewed, renal profile continues to improve steadily, BUN is 51 creatinine is 1.43. The rest of the labs are unremarkable. Progress note dated 10/30/2020. Currently, the patient seems to be resting comfortably. He is on the general medical floor, on a trach collar at 28%. He's been stable over the last 24 hours. He continues to have significant output from his ileostomy. Apparently, the patient and his tell us today, that he will have his ileostomy reversed today. I was not aware of that. He denies any particular complaints other than his butt being sore, and his throat being dry. Initially, I believe the plan was to discharge the patient to rehab and bring him back for ileostomy reversal when he was much stronger. White count 7.7, hemoglobin 9.5, hematocrit 28.8, p latelet count 265,000. PT 14.4, INR 1.4, sodium 135, potassium 3.8, chlorides 103, CO2 25, anion gap 7, BUN 53, and creatinine 1.40. Progress note dated 11/04/2020. 80-year-old male, well-known to our service. Unfortunately, after his ileostomy a few days ago, the patient has done very poorly. He remains on the mechanical ventilator. We had to remove his cuff was tracheostomy tube, and place a cuffed tracheostomy tube in its place. Currently, he is on the I am assist control mode, rate of 28 to be increased to 30, tidal volume 450, FiO2 50%, to be dropped down to 40%, and PEEP of 5. Arterial blood gases show a PaO2 of 123, pCO2 45, pH is 7.27. His hemoglobin this morning was 6.7, he received 1 unit of packed red blood cells. The patient's on propofol at 25 mcg/kg/m, Cardizem drip at 5 mg an hour, norepinephrine at 25 mcg/m, lactated Ringer's at 20 mL an hour, and total parenteral nutrition at 75 mL an hour. The patient continues to deteriorate. He received DDAVP yesterday for bleeding. He continues to lose from his central line site, and from his abdominal incision. I did have a chance to speak to his today. Apparently the nurses talked to her yesterday and last night to let her know that he was not doing well. She has been prepared for the conversation I had with her this morning. She realizes that Mr. Tinoco, her , is not going to get better, and he wishes at this point to consider comfort measures. She was going to gather up some things, and bring her son with her, to the hospital this morning. He was seen by cardiology today who agrees with comfort measures, and also the surgeon. White count is 27.5, hemoglobin this morning was 6.7, hematocrit 20.5, and platelet count 182,000. PT 11.5, INR 1.1. Sodium 132, potassium 4.6, chlorides 103, CO2 21, anion gap 8, BUN 57, and creatinine 2.19. Albumin is only 1.9. Microbiology from November 01, a sputum, shows evidence of Pseudomonas aeruginosa, and another gram-negative bacilli. Chest x-ray shows bibasilar infiltrates with small effusions. Objective - Vital Signs Vital signs: Vital Signs Temp 98.1 F 11/04/20 09:07 Pulse 113 H 11/04/20 10:00 Resp 30 H 11/04/20 10:00 BP 114/62 11/04/20 09:07 Pulse Ox 100 11/04/20 10:00 Intake & Output 11/03/20 11/04/20 11/04/20 18:59 06:59 18:59 Intake Total 2834.247 2999.315 1198.763 Output Total 228 150 65 Balance 2606.247 2849.315 1133.763 Weight 90.6 kg 95.1 kg Intake: IV 2546 2340 665 Fat Emulsion 20% 250 ml 21 In Empty Bag 1 bag @ 21 mls/hr IV DAILY WADE Rx#: [id number] Lactated Ringers 1,000 ml 1500 1500 290 @ 125 mls/hr IV .Q8H WADE Rx#:[id number] MVI (TPN) 825 840 300 Piperacillin-Tazobactam 3 200 75 .375 gm In Sodium Chloride 0.9% 100 ml @ 25 mls/hr IVPB Q8HR WADE Rx# :[id number] Intake, IV Titration 288.247 569.315 173.763 Amount Amiodarone 450 mg In 171.67 Dextrose 5% in Water 250 ml @ 0.5 MG/MIN 16.667 mls/hr IV .Q15H [facility]ADE Rx#: [id number] Diltiazem 125 mg In 65.875 1.583 Sodium Chloride 0.9% 100 ml @ 7.5 MG/HR 7.5 mls/hr IV .[id number] [facility]ADE Rx#: [id number] Norepinephrine 32 mg In 17.963 149.098 90.346 Sodium Chloride 0.9% 218 ml @ 0.05 MCG/KG/MIN 2. 123 mls/hr IV .Q24H [facility]ADE Rx#:[id number] Norepinephrine 4 mg In 95.063 Sodium Chloride 0.9% 250 ml @ 0.05 MCG/KG/MIN 14. 44 mls/hr IV .[id number] [facility]ADE Rx#:[id number] propofoL 1,000 mg In 175.221 182.672 81.834 Empty Bag 1 bag @ Titrate IV .Q0M WADE Rx#: [id number] Oral 50 Blood Product 0 310 Rc As-1 Unit 0 310 [id number] Other 90 Output: Urine 228 150 65 Other: Voiding Method Indwelling Catheter Indwelling Catheter Indwelling Catheter ABP, PAP, CO, CI - Last Documented Arterial Blood Pressure 106/57 - Exam Sedated, and intubated. The patient is connected to the ventilator via his tracheostomy. HEENT examination is grossly unremarkable. Neck supple, full range of motion. A midline tracheostomy is noted. Cardiovascular examination reveals an irregular rhythm and rate. Heart sounds are distant. S1-S2 normal. No S3-S4 or murmur. Heart rate 122 bpm. Pulmonary examination reveals coarse bilateral rhonchi. Breath sounds equal. No wheezes. A few crackles appreciated. Abdomen soft, without bowel sounds. Extremities are intact. Mild acrocyanosis. No clubbing. Diffuse edema and anasarca noted. Skin without rash. He does have a significant sacral decubitus ulcer. Neurologic examination cannot be adequately assessed because of his level of sedation. - Labs CBC & Chem 7: 11/04/20 03:00 11/04/20 03:00 Labs: Abnormal Lab Results - Last 24 Hours (Table) 11/02/20 11/03/2021 Range/Units 06:10 12:07 13:46 WBC (3.8-10.6) k/uL RBC (4.30-5.90) m/uL Hgb (13.0-17.5) gm/dL Hct (39.0-53.0) % RDW (11.5-15.5) % Neutrophils # (1.3-7.7) k/uL Neutrophils # (Manual) 24.00 H (1.3-7.7) k/uL Lymphocytes # (1.0-4.8) k/uL Monocytes # (Manual) (0-1.0) k/uL Metamyelocytes # (Man) (0) k/uL Nucleated RBCs (0-0) /100 WBC Fibrinogen 508 H (200-500) mg/dL ABG pH (7.35-7.45) ABG pO2 (83-108) mmHg ABG HCO3 (21-25) mmol/L ABG O2 Saturation (94-97) % Sodium (137-145) mmol/L Carbon Dioxide (22-30) mmol/L BUN (9-20) mg/dL Creatinine (0.66-1.25) mg/dL Glucose (74-99) mg/dL POC Glucose (mg/dL) (75-99) mg/dL Calcium (8.4-10.2) mg/dL Total Protein (6.3-8.2) g/dL Albumin (3.5-5.0) g/dL Crossmatch See Detail 11/03/20 11/03/20 11/03/20 Range/Units 16:44 17:00 18:01 WBC 30.0 H (3.8-10.6) k/uL RBC 2.59 L (4.30-5.90) m/uL Hgb 7.8 L (13.0-17.5) gm/dL Hct 24.1 L (39.0-53.0) % RDW 16.8 H (11.5-15.5) % Neutrophils # 28.7 H (1.3-7.7) k/uL Neutrophils # (Manual) (1.3-7.7) k/uL Lymphocytes # 0.1 L (1.0-4.8) k/uL Monocytes # (Manual) (0-1.0) k/uL Metamyelocytes # (Man) (0) k/uL Nucleated RBCs (0-0) /100 WBC Fibrinogen (200-500) mg/dL ABG pH (7.35-7.45) ABG pO2 (83-108) mmHg ABG HCO3 (21-25) mmol/L ABG O2 Saturation (94-97) % Sodium 133 L (137-145) mmol/L Carbon Dioxide 19 L (22-30) mmol/L BUN 55 H (9-20) mg/dL Creatinine 2.19 H (0.66-1.25) mg/dL Glucose 338 H (74-99) mg/dL POC Glucose (mg/dL) 301 H (75-99) mg/dL Calcium 7.9 L (8.4-10.2) mg/dL Total Protein (6.3-8.2) g/dL Albumin (3.5-5.0) g/dL Crossmatch 11/03/20 11/04/20 11/04/20 Range/Units 21:07 01:14 03:00 WBC (3.8-10.6) k/uL RBC (4.30-5.90) m/uL Hgb (13.0-17.5) gm/dL Hct (39.0-53.0) % RDW (11.5-15.5) % Neutrophils # (1.3-7.7) k/uL Neutrophils # (Manual) (1.3-7.7) k/uL Lymphocytes # (1.0-4.8) k/uL Monocytes # (Manual) (0-1.0) k/uL Metamyelocytes # (Man) (0) k/uL Nucleated RBCs (0-0) /100 WBC Fibrinogen (200-500) mg/dL ABG pH (7.35-7.45) ABG pO2 (83-108) mmHg ABG HCO3 (21-25) mmol/L ABG O2 Saturation (94-97) % Sodium 132 L (137-145) mmol/L Carbon Dioxide 21 L (22-30) mmol/L BUN 57 H (9-20) mg/dL Creatinine 2.19 H (0.66-1.25) mg/dL Glucose 290 H (74-99) mg/dL POC Glucose (mg/dL) 343 H 316 H (75-99) mg/dL Calcium 7.7 L (8.4-10.2) mg/dL Total Protein 4.0 L (6.3-8.2) g/dL Albumin 1.9 L (3.5-5.0) g/dL Crossmatch 11/04/20 11/04/20 11/04/20 Range/Units 03:00 04:43 05:51 WBC 27.5 H (3.8-10.6) k/uL RBC 2.21 L (4.30-5.90) m/uL Hgb 6.7 L* (13.0-17.5) gm/dL Hct 20.5 L (39.0-53.0) % RDW 16.8 H (11.5-15.5) % Neutrophils # (1.3-7.7) k/uL Neutrophils # (Manual) 25.50 H (1.3-7.7) k/uL Lymphocytes # (1.0-4.8) k/uL Monocytes # (Manual) 1.38 H (0-1.0) k/uL Metamyelocytes # (Man) 0.55 H (0) k/uL Nucleated RBCs 2 H (0-0) /100 WBC Fibrinogen (200-500) mg/dL ABG pH 7.27 L (7.35-7.45) ABG pO2 123 H (83-108) mmHg ABG HCO3 20 L (21-25) mmol/L ABG O2 Saturation 99.6 H (94-97) % Sodium (137-145) mmol/L Carbon Dioxide (22-30) mmol/L BUN (9-20) mg/dL Creatinine (0.66-1.25) mg/dL Glucose (74-99) mg/dL POC Glucose (mg/dL) 275 H (75-99) mg/dL Calcium (8.4-10.2) mg/dL Total Protein (6.3-8.2) g/dL Albumin (3.5-5.0) g/dL Crossmatch Microbiology - Last 24 Hours (Table) 10/31/20 08:52 Blood Culture - Preliminary Blood No Growth after 96 hours 11/01/20 22:00 Gram Stain - Preliminary Sputum Sputum Culture - Preliminary Pseudomonas aeruginosa Gram Neg Bacilli Radha albicans Assessment and Plan Assessment: Acute on chronic hypoxemic respiratory failure, requiring recurrent mechanical ventilation on November 03. Postop day #4, status post reversal of ileostomy, lysis of adhesions, repair of incisional hernia, partial omentectomy, and wound VAC placement. Hypotension, secondary to left lower lobe pneumonia and sepsis. Acute on chronic hypoxemic respiratory failure secondary to pneumonia and underlying COPD. Acute left lower lobe pneumonia, secondary to methicillin sensitive staph aureus, and Klebsiella. Acute on chronic kidney injury, secondary to sepsis. Moderately severe COPD. History of triple-vessel coronary disease, status post bypass surgery on 07/18/2020, with multiple postoperative complications. History of tracheostomy, secondary to failure to wean from mechanical ventilation. Benign essential hypertension. Type 2 diabetes mellitus. Hyperlipidemia. Chronic atrial fibrillation. History of hypothyroidism. Status post ileostomy, 08/02/2020. History of chronic anemia. Stage IV decubitus ulcer. Stage II pressure ulcer, right heel. Plan: Plan dated 11/04/2020. Unfortunately, the patient continues to deteriorate. His norepinephrine requirements continue to go up. He remains on a Cardizem drip for his atrial fibrillation. The patient continues to ooze from his central line site, and from his abdominal incision. He will receive 1 unit of PRBCs this morning. I did have a conversation with the patient's today. She realizes that her will not improve and will likely succumb to this illness. The patient is ready a DO NOT RESUSCITATE. She does agree with comfort measures on Mr. Tinoco. She'll come into the hospital this morning after notifying her son. Additional recommendations and suggestions are forthcoming. Prognosis obviously is very poor. Time with Patient: Greater than 30
[2020-11-04 13:12] VITALS: PULSE 151
--- NOTE | 2020-11-04 13:43 | PN ---
PROGRESS NOTE Patient is seen for followup for acute kidney injury. The patient is currently maintained on pressors. He is on Levophed. His hemoglobin was low this morning at 6.7 and is getting a unit of packed RBCs. Urine output has been poor at about 10 mL an hour. He did get Lasix in the morning. Output has not changed much. IV fluids are running at 125 mL an hour along with TPN at 75 mL an hour. FiO2 is stable at about 40%. EXAMINATION: Today blood pressure was 143/73, heart rate 120 per minute. Patient is afebrile. Examination of the heart S1, S2. Examination of the lungs, bilateral breath sounds are heard. Examination of the abdomen shows significant oozing at the surgical site with bleeding noted through the dressing as well as at the site of the triple-lumen catheter in the left subclavian vein. PICK UP OPERATOR exam cannot be assessed, the patient is sedated. LABS: Show hemoglobin 6.7, white cell count 27.5 sodium 132, potassium 4.6, BUN 57 serum creatinine 2.19. ASSESSMENT: 1. Acute kidney injury, acute tubular necrosis. Oliguric secondary to hypotension hypoperfusion. Patient continues to have poor urine output. He did receive a dose of Lasix earlier today. I will repeat another dose for now. I will also decrease the IV fluids as he already has TPN running. No acute indication for dialysis today. However, we will continue to monitor daily for evaluation for need for renal replacement therapy. No nephrotoxic agents on board. 2. Anemia associated with bleeding and acute blood loss, being transfused packed RBCs. 3. Hypoxic respiratory failure, currently on the vent. 4. Atrial fibrillation with rapid ventricular response, back on Cardizem drip. 5. Status post exploratory laparotomy for ischemic bowel last year, status post reversal of ileostomy and lysis of adhesions on 10/30/2020. 6. Sepsis from pneumonia, currently improved. 7. Metabolic acidosis associated with acute kidney injury, currently improved. PLAN: Discontinue IV fluids. Continue with TPN. Add Lasix q.12 hours. If there is no further improvement in urine output over the next few days patient may need dialysis. MMODL / IJN: [id number] /
--- NOTE | 2020-11-04 20:16 | P.DS ---
Providers Date of admission: 10/02/20 11:26 Expected date of discharge: 11/04/20 (Patient ) Attending physician: Javier Salinas Consults: 10/02/20 11:28 Consult Physician Routine Consulting Provider: Jf Galvan Consult Reason/Comments: hypoxic respiratory failure Do you want consulting provider notified?: Yes 10/03/20 06:15 Consult Physician Routine Consulting Provider: Ken Perez Consult Reason/Comments: CONNOR Do you want consulting provider notified?: Yes, Notify in am 10/03/20 09:12 Consult Physician Stat Consulting Provider: Anjel Dempsey Consult Reason/Comments: abdominal wound Do you want consulting provider notified?: Already Contacted 10/03/20 09:16 Consult Physician Stat Consulting Provider: Tay Frederick Consult Reason/Comments: Sputum, ABX Do you want consulting provider notified?: Already Contacted 10/30/20 16:45 Consult Physician Routine Consulting Provider: Luke Meyers Consult Reason/Comments: icu management Do you want consulting provider notified?: Yes 10/31/20 00:22 Consult Physician Routine Consulting Provider: [facility] Consult Reason/Comments: A-fib/RVR Do you want consulting provider notified?: Already Contacted Primary care physician: [facility] Course: Interval history: This is a pleasant 80 years old male with past medical history of coronary artery disease, COPD, diabetes mellitus, hyperlipidemia, hypertension, hypothyroidism, coronary artery disease status post cardiac cath and stent placement. He recently underwent double coronary artery bypass grafting for his triple-vessel coronary artery disease. He was in the hospital from 07/18/20- 08/25/2020 pt has tracheostomhy and PEG tube , Information were obtained with the help of at bedside, he presents with c onfusion, and a lot of secretion Why he states that after been discharged from acute and he went to [facility] aren't states therefore one month and 5 days and then he was discharged a few days ago to half-way at [facility] on Friday, however over the weekend he has more congestion, he has weak cough and needed frequent suctioning, patient was able to talk weekly his little confused but he can't communicate through gesture, he denies pain but he is tachypneic He has tracheostomy, PEG tube and try to colostomy. Admitted with-hypotension secondary to severe sepsis secondary to pneumonia, aspiration pneumonia, acute hypoxic respiratory failure, acute kidney injury secondary to ATN, elevated sodium, increased lactic acid, elevated troponin felt to be from tachycardia. Recent history of intraperitoneal hemorrhage status post laboratory with washout and ileostomy on 08/02/2020. Tracheostomy. C. diff ruled out. Recurrent A. fib. She was able to talk after covering his tracheostomy. Patient started on full liquids. Liquid stools persist. Discussed with Dr. Galvan and dinner Dr. Dempsey. Given that patient has a significant stool output. I highly doubt patient will get better of his discharge. We all agreed that patient should proceed with surgery as soon as possible. Was discussed with the patient at length. He agrees. October 30- patient underwent reversal of ileostomy [lysis of adhesions, small bowel resection, repair of incisional hernia repair, partial omentectomy]. Wound VAC was placed. Postprocedure. Blood pressure low. Started on levo fed. Did have a run of A. fib uncontrolled. Started on TPN and lipids. Patient did have loose stools. Hemoglobin dropped. Receive 2 units of blood. Patient started bleeding around the central axis and the wound VAC. Today-overnight patient started having pauses. Then went back into rapid ventricular rate. Bleeding further. Patient's family made the patient comfort care and patient earlier today. Consultation: Dr. Dempsey from general surgery Dr. Frederick from ID Dr. Galvan in part dose from critical care Dr. Perez from nephrology [facility] INVESTIGATIONS, reviewed in the clinical context: November 04: WBC 27.5 hemoglobin 6.7 potassium 4.6 creatinine 2.19 albumin 1.9 October 27: WBC 7.2 hemoglobin 9 platelets 233 potassium 3.7 creatinine 1.69 October 20: White count 13.2 hemoglobin 9.4 platelets 206 potassium 4 creatinine 1.48 White count 7.1 hemoglobin 8.7 platelets 256 potassium 3.8 bicarbonate 20 bun 33 creatinine 3.17 Sputum culture-positive for Staphylococcus aureus MSSA, Klebsiella Pneumoniae Previous labs: White count 16.6 hemoglobin 9.9 platelets 584 bun 100 creatinine 3.18 Coronavirus PCR-not detected Renal ultrasound-normal bilateral renal ultrasound Cause of Pneumonia Assessment and plan: -Hypotensive shock -norepinephrine IV , on midodrine-patient now back on levo fed -Abdominal wound at surgical incision site, followed by general surgery with local dressing -History of ischemic small bowel with evidence of pneumatosis status post small bowel resection on 07/24/2020 -Ileostomy for intraperitoneal hemorrhage and small bowel ischemia status post exploratory laboratory or short of periportal cavity on 08/02/2020. Ileostomy reversal on October 30. Now with a wound VAC -Coronary artery disease with bypass in July 2020, and Lopressor. Aspirin -Acute hypoxic respiratory failure secondary to pneumonia, continue with oxygen supplementation, currently with the trach collar, 28% -Anemia secondary to chronic kidney disease , follow H&H -Acute kidney injury secondary to ATN secondary to hypotension and hemodynamic instability - Creatinine 1.48 -Chronic kidney disease stage III the baseline creatinine of 1.2-1.5 secondary to nephrosclerosis -Paroxysmal atrial fibrillation with rapid ventricular rate on amiodarone by mouth, Lopressor, converted to sinus rhythm. Patient has been in and out of rapid A. fib. -Hypernatremia secondary to decreased oral water intake. Receiving free water- improved -Possible aspiration pneumonia, sputum positive for MSSA and Klebsiella pneumoniae., Causing sepsis IV Zosyn-changed to IV cefepime-completed course -Silent aspiration detected by barium study. Nothing by mouth -Stage II sacral pressure ulcer, right heel decub -Hypothyroidism, continue Synthroid -Moderate to severe COPD, on bronchodilators, inhaled steroids -Diabetes mellitus type 2, follow Accu-Cheks -Essential hypertension -Hyperlipidemia, continue Lipitor -BPH on Flomax -Enteral tube feeding at 90 mL an hour before surgery. 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 Ileostomy was reversed on October 30 -Acute GI blood loss anemia, symptomatic hypotension. Patient is receiving second unit of blood this afternoon. -Started on TPN and lipids -Back on the ventilator on November 03. -DO NOT RESUSCITATE Disposition: Patient Patient Condition at Discharge: Critical Plan - Discharge Summary Discharge Rx Participant: Yes New Discharge Prescriptions: No Action Atorvastatin [Lipitor] 40 mg PEG/G-TUBE HS@2000 Omeprazole 2mg/Ml Oral Suspension 20 mg PEG/G-TUBE BID Acetaminophen Tab [Tylenol] 650 mg PEG/G-TUBE Q8H PRN PRN Reason: Pain Amiodarone [Cordarone] 200 mg PEG/G-TUBE DAILY Apixaban [Eliquis] 5 mg PEG/G-TUBE BID Epoetin Alex-Epbx [Retacrit] 4,000 units SQ MOWEFR Insulin Regular [HumuLIN R] See Protocol SQ ACHS Ipratropium-Albuterol Nebulize [Duoneb 0.5 mg-3 mg/3 ml Soln] 3 ml INHALATION RT-TID@,, Levothyroxine Sodium [Synthroid] 50 mcg PEG/G-TUBE DAILY@1100 Metoprolol Tartrate [Lopressor] 25 mg PEG/G-TUBE Q8H Midodrine [ProAmatine] 5 mg PEG/G-TUBE TID@0800,1300,1900 QUEtiapine [SEROquel] 25 mg PEG/G-TUBE HS@1999 Tamsulosin [Flomax] 0.4 mg PEG/G-TUBE DAILY Ipratropium-Albuterol Nebulize [Duoneb 0.5 mg-3 mg/3 ml Soln] 3 ml INHALATION RT-Q4H PRN PRN Reason: Shortness Of Breath Or Wheezing Aspirin 81 mg PEG/G-TUBE DAILY Discharge Medication List Atorvastatin [Lipitor] 40 mg PEG/G-TUBE HS@199907/14/20 [History] Acetaminophen Tab [Tylenol] 650 mg PEG/G-TUBE Q8H PRN 10/02/20 [History] Amiodarone [Cordarone] 200 mg PEG/G-TUBE DAILY 10/02/20 [History] Apixaban [Eliquis] 5 mg PEG/G-TUBE BID 10/02/20 [History] Aspirin 81 mg PEG/G-TUBE DAILY 10/02/20 [History] Epoetin Alex-Epbx [Retacrit] 4,000 units SQ MOWEFR 10/02/20 [History] Insulin Regular [HumuLIN R] See Protocol SQ ACHS 10/02/20 [History] Ipratropium-Albuterol Nebulize [Duoneb 0.5 mg-3 mg/3 ml Soln] 3 ml INHALATION RT-Q4H PRN 10/02/20 [History] Ipratropium-Albuterol Nebulize [Duoneb 0.5 mg-3 mg/3 ml Soln] 3 ml INHALATION RT-TID@,,19 10/02/20 [History] Levothyroxine Sodium [Synthroid] 50 mcg PEG/G-TUBE DAILY@1100 10/02/20 [History] Metoprolol Tartrate [Lopressor] 25 mg PEG/G-TUBE Q8H 10/02/20 [History] Midodrine [ProAmatine] 5 mg PEG/G-TUBE TID@0800,1300,1900 10/02/20 [History] Omeprazole 2mg/Ml Oral Suspension 20 mg PEG/G-TUBE BID 10/02/20 [History] QUEtiapine [SEROquel] 25 mg PEG/G-TUBE HS@2000 10/02/20 [History] Tamsulosin [Flomax] 0.4 mg PEG/G-TUBE DAILY 10/02/20 [History] Follow up Appointment(s)/Referral(s): Sridhar Quiroz DO [Primary Care Provider] - 1-2 days Activity/Diet/Wound Care/Special Instructions: Abdomen: Absorptive silver, saline moistened gauze, dry gauze, ABD's, secure with tape. Cocccyx/Sacrum: Absorptive silver, saline moistened gauze, sacrum border foam to cover. Right Heel: Medihoney to wound bed. Cover with dry gauze, wrap with Kerlix. Change dressings every Friday, , and Friday. PRN if visibly soiled. Turn patient every 2 hours. Discharge Disposition: - Preliminary Cause of Preliminary Cause of : Pneumonia
--- NOTE | 2020-11-07 12:49 | CDI ---
Documentation Clarification Form Date: 11/07/2020 12:28:45 PM From: Jadyn PaezFarrellVALORIE gonzalez, CCDS Admit Date: 10/02/2020 11:26:00 AM Patient Name: Francisco Tinoco Visit Number: [id number] Discharge Date: 11/04/2020 03:49:00 PM ATTENTION: The Clinical Documentation Specialists (CDI) and [facility] Coding Staff appreciate your assistance in clarifying documentation. Please respond to the clarification below the line at the bottom and electronically sign. The CDI & [facility] Coding staff will review the response and follow-up if needed. Please note: Queries are made part of the Legal Health Record. If you have any questions, please contact the author of this message via ITS. Dr. Javier Salinas: Per the 10/02 History & Physical and subsequent Attending Progress Notes the following is documented: "Information was obtained with the help of (his) at bedside, he presents with confusion." Also documented in the 10/02 H/P: "The patient is awake, looks direct and somewhat confused but he is partially oriented to the surroundings." History/Risk Factors per the 10/02 ED Note Past Medical History: CAD, COPD, IDDM II, Hyperlipidemia, Hypertension, Pneumonia, CKD III, Anemia of Chronic Disease, Jacobs's esophagus, [place], MRSA, Heart Catheterization With Stent, Partial Thyroidectomy, Former smoker, Tracheostomy, PEG tube & Ileostomy status post complications of coronary bypass surgery. Clinical Indicators: Presented to the ED on 10/02 via EMS from a retirement with respiratory distress. Has a capped Tracheostomy, PEG Tube & Ileostomy. ED Clinical Impression: Respiratory Distress. Per the 10/02 H/P Assessment: Acute hypotension, possibly secondary to severe sepsis related to pneumonia, possible aspiration pneumonia, Acute hypoxic respiratory failure, CONNOR on CKD II, Hypernatremia & Atrial Fibrillation. 10/02 VS: T 98.9, P 129, R 26 (SOB, labored, accessory use, cough, retractive & Tachypnea), BP 107/73 - 854/53, PO 96 15% Trach Collar, BMI: 28.4. 10/02 LAB: WBC 16.6, Hgb 9.9, Hct 33.4, Pl Ct 584, Neut 14.3, PT 13.9, INR 1.4, Na 153, BUN 100, Cr 3.18, glucose 181, Lactic Acid 4.1 - 3.5; total Bili 1.4, AST 110, ALT 154, Alk Phos 254, Trop 0.121. 10/02 Blood gas: pH 7.47, pO2 54, HCO3 29, Total CO2 30, O2 Sat 88.0 Treatment 10/02: IV Decadron, IV Morphine, IV fluid 1,000 mls @ 999 mls/hr q1H, IV Azithromycin, IV Rocephin, IV fluid rate 1,000 mls @ 130 mls/hr q7H, IV Zofran, IV Zosyn. 10/03: po Seroquel 25 mg In your professional opinion, can you please clarify the specific the cause of the patient's confusion, if known? [ ] Metabolic Encephalopathy [ ] Septic Encephalopathy [ ] Toxic Encephalopathy [ ] Other cause of confusion, please specify [ ] Unable to determine (Last Revision: November 2017) Toxic and metabolic encephalopathy, with delirium MTDD
--- NOTE | 2020-11-07 13:01 | CDI ---
Documentation Clarification Form Date: 11/07/2020 12:49:59 PM From: Jadyn Farrell CCS, CCDS Admit Date: 10/02/2020 11:26:00 AM Patient Name: Francisco Tinoco Visit Number: [id number] Discharge Date: 11/04/2020 03:49:00 PM ATTENTION: The Clinical Documentation Specialists (CDI) and [facility] Coding Staff appreciate your assistance in clarifying documentation. Please respond to the clarification below the line at the bottom and electronically sign. The CDI & [facility] Coding staff will review the response and follow-up if needed. Please note: Queries are made part of the Legal Health Record. If you have any questions, please contact the author of this message via ITS. Dr. Javier Salinas: Conflicting documentation has been found in the medical record: Per the General Surgery Progress Notes beginning on 10/22: "Chronic Malnutrition secondary to high ileostomy output." Per the 10/23 Attending Physician Query Response re the severity of Malnutrition: "Mild Protein Calorie Malnutrition" is documented. Per the subsequent General Surgery Progress Notes on 11/02 & 11/03: "Severe Protein Calorie Malnutrition" is documented. History/Risk Factors per the 10/02 ED Note Past Medical History: CAD, COPD, IDDM II, Hyperlipidemia, Hypertension, Pneumonia, CKD III, Anemia of Chronic Disease, Jacobs's esophagus, [place], MRSA, Heart Catheterization With Stent, Partial Thyroidectomy, Former smoker, Tracheostomy, PEG tube & Ileostomy status post complications of coronary bypass surgery. Clinical Indicators: Presented to the ED on 10/02 via EMS from a correction with respiratory distress. Has a capped Tracheostomy, PEG Tube & Ileostomy. ED Clinical Impression: Respiratory Distress. Per the 10/02 H/P Assessment: Acute hypotension, possibly secondary to severe sepsis related to pneumonia, possible aspiration pneumonia, Acute hypoxic respiratory failure, CONNOR on CKD II, Hypernatremia & Atrial Fibrillation. 10/02 VS: T 98.9, P 129, R 26 (SOB, labored, accessory use, cough, retractive & Tachypnea), BP 107/73 - 854/53, PO 96 15% Trach Collar 10/02: BMI: 28.4. 10/02 LAB: WBC 16.6, Hgb 9.9, Hct 33.4, Pl Ct 584, Neut 14.3, PT 13.9, INR 1.4, Na 153, BUN 100, Cr 3.18, glucose 181, Lactic Acid 4.1 - 3.5; total Bili 1.4, AST 110, ALT 154, Alk Phos 254, Trop 0.121. 10/02 Blood gas: pH 7.47, pO2 54, HCO3 29, Total CO2 30, O2 Sat 88.0 Procedure 10/30: Reversal of Ileostomy, Lysis of adhesions, Small bowel resection, Repair of Incisional Hernia, Partial Omentectomy, Placement of a Wound Vac Treatment 10/02: IV Decadron, IV Morphine, IV fluid 1,000 mls @ 999 mls/hr q1H, IV Azithromycin, IV Rocephin, IV fluid rate 1,000 mls @ 130 mls/hr q7H, IV Zofran, IV Zosyn. Patient is fed via PEG tube. PICC line was placed on 10/04 for half-way antibiotics, TPN started 11/01. In your opinion, what is the most clinically appropriate diagnosis for this patient? [ ] Mild Protein Calorie Malnutrition [ ] Severe Protein Calorie Malnutrition [ ] Other Severity of Protein Calorie Malnutrition [ ] Unable to determine (Last Revision: November 2017) Mild protein calorie malnutrition MTDD
--- NOTE | 2020-11-07 14:20 | CDI ---
Documentation Clarification Form Date: 11/07/2020 02:11:00 PM From: Jadyn Farrell CCS, CCDS Admit Date: 10/02/2020 11:26:00 AM Patient Name: Francisco Tinoco Visit Number: [id number] Discharge Date: 11/04/2020 03:49:00 PM ATTENTION: The Clinical Documentation Specialists (CDI) and [facility] Coding Staff appreciate your assistance in clarifying documentation. Please respond to the clarification below the line at the bottom and electronically sign. The CDI & [facility] Coding staff will review the response and follow-up if needed. Please note: Queries are made part of the Legal Health Record. If you have any questions, please contact the author of this message via ITS. Dr. Javier Salinas: Conflicting documentation has been found in the medical record: Per the 10/02 History & Physical and subsequent documentation the following is documented: "Acute hypotension , possibly secondary to severe sepsis related to his pneumonia." Per the 10/05 Pulmonary/Critical Care Progress Note & subsequent Progress notes the following is documented: "Hypotension secondary to sepsis secondary to left lower lobe pneumonia, also suspect significant component of hypovolemia in addition to his sepsis, strongly doubt septic shock." History/Risk Factors per the 10/02 ED Note Past Medical History: CAD, COPD, IDDM II, Hyperlipidemia, Hypertension, Pneumonia, CKD III, Anemia of Chronic Disease, Jacobs's esophagus, [place], MRSA, Heart Catheterization With Stent, Partial Thyroidectomy, Former smoker, Tracheostomy, PEG tube & Ileostomy status post complications of coronary bypass surgery. Clinical Indicators: Presented to the ED on 10/02 via EMS from a residential with respiratory distress. Has a capped Tracheostomy, PEG Tube & Ileostomy. ED Clinical Impression: Respiratory Distress. Per the 10/02 H/P Assessment: Acute hypotension, possibly secondary to severe sepsis related to pneumonia, possible aspiration pneumonia, Acute hypoxic respiratory failure, CONNOR on CKD II, Hypernatremia & Atrial Fibrillation. 10/02 VS: T 98.9, P 129, R 26 (SOB, labored, accessory use, cough, retractive & Tachypnea), BP 107/73 - 854/53, PO 96 15% Trach Collar, BMI: 28.4. 10/02 LAB: WBC 16.6, Hgb 9.9, Hct 33.4, Pl Ct 584, Neut 14.3, PT 13.9, INR 1.4, Na 153, BUN 100, Cr 3.18, glucose 181, Lactic Acid 4.1 - 3.5; total Bili 1.4, AST 110, ALT 154, Alk Phos 254, Trop 0.121. 10/02 Blood gas: pH 7.47, pO2 54, HCO3 29, Total CO2 30, O2 Sat 88.0 Treatment 10/02: IV Decadron, IV Morphine, IV fluid 1,000 mls @ 999 mls/hr q1H, IV Azithromycin, IV Rocephin, IV fluid rate 1,000 mls @ 130 mls/hr q7H, IV Zofran, IV Zosyn In your opinion, what is the most clinically appropriate diagnosis for this patient? [ ] Hypotension secondary to Sepsis with Septic Shock [ ] Hypotension secondary to Sepsis without Septic Shock [ ] Other type of Shock, please specify: [ ] Unable to determine (Last Revision: November 2017) Hypotension due to hypovolemic shock, and possible septic shock MTDD
== END 2020-11-04 15:49 | disposition expired | DRG 853 ==
LOC: EC 09:35 → 3SCARD 11:26 → 2SICU 19:18 → 3SCARD 10-28 14:24 → 2SICU 10-30 20:26
PROVIDERS: ADMIT Hospitalist; ATTEND Hospitalist
PROC: 3E0G76Z Introduction of Nutritional Substance into Upper GI, Via Natural or Artificial Opening (ICD-10-PCS; 2020-10-03)
PROC: 0HD7XZZ Extraction of Abdomen Skin, External Approach (ICD-10-PCS; 2020-10-03)
PROC: 3E033XZ Introduction of Vasopressor into Peripheral Vein, Percutaneous Approach (ICD-10-PCS; 2020-10-03)
PROC: 30233N1 Transfusion of Nonautologous Red Blood Cells into Peripheral Vein, Percutaneous Approach (ICD-10-PCS; 2020-10-04)
PROC: 05H533Z Insertion of Infusion Device into Right Subclavian Vein, Percutaneous Approach (ICD-10-PCS; 2020-10-04)
PROC: 3E0436Z Introduction of Nutritional Substance into Central Vein, Percutaneous Approach (ICD-10-PCS; 2020-10-04)
PROC: 0DNW0ZZ Release Peritoneum, Open Approach (ICD-10-PCS; 2020-10-30)
PROC: 0DBU0ZZ Excision of Omentum, Open Approach (ICD-10-PCS; 2020-10-30)
PROC: 0DBB0ZZ Excision of Ileum, Open Approach (ICD-10-PCS; 2020-10-30)
PROC: 0WQF0ZZ Repair Abdominal Wall, Open Approach (ICD-10-PCS; principal; 2020-10-30 07:30)
PROC: 03HY32Z Insertion of Monitoring Device into Upper Artery, Percutaneous Approach (ICD-10-PCS; 2020-11-03)
PROC: 4A133B1 Monitoring of Arterial Pressure, Peripheral, Percutaneous Approach (ICD-10-PCS; 2020-11-03)
PROC: 4A133J1 Monitoring of Arterial Pulse, Peripheral, Percutaneous Approach (ICD-10-PCS; 2020-11-03)
PROC: 02HV33Z Insertion of Infusion Device into Superior Vena Cava, Percutaneous Approach (ICD-10-PCS; 2020-11-03)
PROC: 5A1935Z Respiratory Ventilation, Less than 24 Consecutive Hours (ICD-10-PCS; 2020-11-03)
DX: A41.01 Sepsis due to Methicillin susceptible Staphylococcus aureus (principal); L89.613 Pressure ulcer of right heel, stage 3; N17.0 Acute kidney failure with tubular necrosis; J96.21 Acute and chronic respiratory failure with hypoxia; R65.21 Severe sepsis with septic shock; J69.0 Pneumonitis due to inhalation of food and vomit; J15.211 Pneumonia due to Methicillin susceptible Staphylococcus aureus; J15.0 Pneumonia due to Klebsiella pneumoniae; G92 Toxic encephalopathy; K91.2 Postsurgical malabsorption, not elsewhere classified; J90 Pleural effusion, not elsewhere classified; J44.0 Chronic obstructive pulmonary disease with (acute) lower respiratory infection; E44.1 Mild protein-calorie malnutrition; E87.2 Acidosis; E87.0 Hyperosmolality and hypernatremia; T81.31XA Disruption of external operation (surgical) wound, not elsewhere classified, initial encounter; I31.3 Pericardial effusion (noninflammatory); E87.1 Hypo-osmolality and hyponatremia; D62 Acute posthemorrhagic anemia; D68.32 Hemorrhagic disorder due to extrinsic circulating anticoagulants; R57.1 Hypovolemic shock; L89.152 Pressure ulcer of sacral region, stage 2; Z43.2 Encounter for attention to ileostomy; Z93.0 Tracheostomy status; D63.1 Anemia in chronic kidney disease; Z66 Do not resuscitate; Z51.5 Encounter for palliative care; Z79.4 Long term (current) use of insulin; L89.612 Pressure ulcer of right heel, stage 2; E11.22 Type 2 diabetes mellitus with diabetic chronic kidney disease; A41.59 Other Gram-negative sepsis; I48.0 Paroxysmal atrial fibrillation; L98.492 Non-pressure chronic ulcer of skin of other sites with fat layer exposed; N18.30 Chronic kidney disease, stage 3 unspecified; Z93.1 Gastrostomy status; Z20.822 Contact with and (suspected) exposure to COVID-19; I12.9 Hypertensive chronic kidney disease with stage 1 through stage 4 chronic kidney disease, or unspecified chronic kidney disease; E78.5 Hyperlipidemia, unspecified; K43.2 Incisional hernia without obstruction or gangrene; K66.0 Peritoneal adhesions (postprocedural) (postinfection); I25.10 Atherosclerotic heart disease of native coronary artery without angina pectoris; E86.0 Dehydration; K22.70 Barrett's esophagus without dysplasia; H91.8X9 Other specified hearing loss, unspecified ear; E89.0 Postprocedural hypothyroidism; E87.5 Hyperkalemia; E87.6 Hypokalemia; E86.1 Hypovolemia; E83.42 Hypomagnesemia; N40.0 Benign prostatic hyperplasia without lower urinary tract symptoms; R53.81 Other malaise; R19.7 Diarrhea, unspecified; Y95 Nosocomial condition; T45.515A Adverse effect of anticoagulants, initial encounter; Z68.28 Body mass index [BMI] 28.0-28.9, adult; Z71.3 Dietary counseling and surveillance; Z79.01 Long term (current) use of anticoagulants; Z79.899 Other long term (current) drug therapy; Z79.82 Long term (current) use of aspirin; Z87.19 Personal history of other diseases of the digestive system; Z96.1 Presence of intraocular lens; Z87.891 Personal history of nicotine dependence; Z95.5 Presence of coronary angioplasty implant and graft; Z95.1 Presence of aortocoronary bypass graft; Z87.01 Personal history of pneumonia (recurrent); Z98.42 Cataract extraction status, left eye; Z98.41 Cataract extraction status, right eye; Z90.49 Acquired absence of other specified parts of digestive tract; Z80.0 Family history of malignant neoplasm of digestive organs; Z80.3 Family history of malignant neoplasm of breast; Z82.3 Family history of stroke; Z82.5 Family history of asthma and other chronic lower respiratory diseases
CPT/HCPCS: 36415; 36573; 36600; 71045; 74230; 76770; 80048; 80053; 81001; 82040; 82330; 82533; 82728; 82805; 83540; 83550; 83605; 83735; 83880; 84100; 84134; 84145; 84478; 84484; 85025; 85027; 85384; 85610; 85730; 86850; 86900; 86901; 86920; 87040; 87070; 87077; 87086; 87186; 87205; 87324; 87635; 88304; 93005; 93306; 94002; 94003; 94640; 96361; 96365; 96375; 99291